=== PATIENT | male | born 1955 | race Caucasian/White ===

== ENCOUNTER → 2019-10-15 13:32 | Outpatient (BNVA) | payer MEDICARE, SELFPAY | PROVIDERS: Family Provider Family Medicine; PCP Family Medicine; Visit Provider Anesthesiology | DX: G89.4 Chronic pain syndrome (principal); M54.5 Low back pain; M25.561 Pain in right knee; M25.562 Pain in left knee; M25.512 Pain in left shoulder; Z79.891 Long term (current) use of opiate analgesic | CPT/HCPCS: 99214 ==

== ENCOUNTER 2019-10-27 12:20 | Emergency (ER) | payer MEDICARE, SELFPAY ==
[2019-10-27 12:28] VITALS: BP 125/62; PULSE 59; RESP 16; TEMP 37; O2SAT 93; BMI 37.7
[2019-10-27 12:30] VITALS: BP 125/62; PULSE 66; RESP 16; O2SAT 93
--- NOTE | 2019-10-27 12:30 | ED_ITS ---
Entered by Tricia Galeas, acting as scribe for Donato Chance MD Oct 27, 2019 12:20 HPI - Chest Pain General: Chief Complaint: Chest Pain Stated Complaint: Chest Pain Time Seen by Provider: 10/27/19 12:30 Source: patient Mode of arrival: EMS Limitations: no limitations History of Present Illness: HPI narrative: 64 yo Male presents to ED with complaint of chest pain. Pt states that he was just sitting there this morning and he had severe chest pains. Pt states that his hands were sweating and he had some difficulty breathing. Pt states that his pains went away and the pain came back again about 6 minutes later. Pt states that he is not having any chest pain at this moment. Pt states that he has had episodes like this prior and had a stress test in May of 2019 that was negative. Pt states that he chewed an aspirin before EMS arrived. complaint: chest pain Onset (ago): hour(s) (11:30 this morning) Timing of current episode: episodic and now resolved Prior episodes: Yes Onset: during rest Pain location: substernal Pain radiation: none Pain scale (0-10): 3 Relieving factors: medication-other (aspirin) Exacerbating factors: nothing Associated symptoms: Reports diaphoresis and dyspnea; Deny abdominal pain, nausea or vomiting Treatment prior to arrival: aspirin Review of Systems Const: Reports: diaphoresis Eyes: Denies: blurry vision or eye discomfort ENMT: Denies: throat pain or dental pain Card: Reports: chest pain, shortness of breath on exertion and shortness of breath when lying down Resp: Reports: shortness of breath GI: Denies: abdominal pain, nausea, vomiting or diarrhea : Denies: painful urination Musc: Denies: neck pain or back pain Skin/Breast: Denies: rash Neuro: Denies: headache Psych: Denies: depression Leif/Lymph: Denies: easy bruising All/Imm: Denies: hives PFSH ED PFSH: Statuses (acute, chronic, etc) shown below reflect problem list status as previously entered and may not be historically accurate Medical History Bilateral knee pain (Chronic) Chronic pain syndrome (Chronic) Opioid contract exists (Chronic) Pain in left shoulder (Chronic) Surgical History H/O ankle fusion (Acute) H/O arthroscopic knee surgery (Acute) H/O wrist surgery (Acute) History of appendectomy (Acute) History of shoulder surgery (Acute) S/P ureteral stent placement (Acute) Social History Smoking and tobacco status: former smoker Alcohol intake: never Physical Exam Const: COMMON NORMALS: no apparent distress, oriented x3 and healthy appearing HENMT: COMMON NORMALS: normocephalic and head/scalp atraumatic HEAD & SCALP: normocephalic and atraumatic Eye: COMMON NORMALS: PERRL and EOMs intact bilaterally PUPIL: Yes PERRL Neck/C-Spine: COMMON NORMALS: full ROM and supple Chest: COMMONS NORMALS: inspection of chest normal and palpation of chest normal Resp: COMMON NORMALS: normal respiratory effort, no retractions, no use of accessory muscles and clear to auscultation bilaterally AUSCULTATION: clear to auscultation bilaterally Cardio: COMMON NORMALS: regular rate, regular rhythm and no murmurs RATE: regular rate RHYTHM: regular rhythm GI: COMMON NORMALS: normal to inspection, nondistended, normoactive bowel sounds, soft to palpation, non-tender and no masses PALPATION: Yes soft Extremity: COMMON NORMALS: normal to inspection and full ROM Neuro: COMMON NORMALS: oriented x3, moves all extremities and no focal motor deficits Psych: COMMON NORMALS: mental status grossly normal, thought process normal and cooperative THOUGHT PROCESS: normal thought process Skin: COMMON NORMALS: no rashes or lesions noted and no wounds GENERAL SKIN EXAM: no rashes or lesions noted Course Vital Signs: Vital signs: Vital Signs Temperature 98.6 F 10/27/19 12:28 Pulse Rate 59 L 10/27/19 15:25 Respiratory Rate 20 H 10/27/19 15:25 Blood Pressure 138/69 10/27/19 15:25 Pulse Oximetry 91 10/27/19 15:25 MDM - Chest Pain MDM Narrative: Medical decision making narrative: Patient presents here with chest pain is atypical in nature. Initial and repeat troponins are negative with no delta change. EKG is negative as well. Patient had a stress test within the last year that was negative as well. Patient has had no pain here and I feel he is stable for discharge. He has no signs of pulmonary embolism. He is to follow-up with his interior design coordinator in 3 to 7 days and if his pain returns I informed he needs return to the ER. He understands and agrees to this plan. Lab Data: Labs: Lab Results 10/27/19 10/27/19 10/27/19 Range/Units 12:00 12:00 12:00 WBC 7.4 (4.0-10.0) 10^3/ uL RBC 5.60 H (4.1-5.3) 10^6/u L Hgb 16.9 H (11.7-16.6) g/dL Hct 52.3 H (42.0-52.0) % MCV 93.4 (80-94) fL MCH 30.2 (28.0-34.0) pg MCHC 32.3 (30.0-36.0) g/dL RDW 14.6 (12.1-15.1) % Plt Count 203 (130-400) 10^3/c mm MPV 10.2 (7.4-10.4) fL Neut % (Auto) 59.8 % Lymph % (Auto) 24.6 % [place] % (Auto) 9.6 % Eos % (Auto) 4.6 % Baso % (Auto) 0.7 % Neut # (Auto) 4.4 (1.8-7.7) 10^3/u L Lymph # (Auto) 1.8 (0.8-4.8) 10^3/u L [place] # (Auto) 0.7 (0.2-0.9) 10^3/u L Eos # (Auto) 0.3 (0.0-0.8) 10^3/u L Baso # (Auto) 0.1 (0.0-0.1) 10^3/u L Nucleated RBC % (a uto) 0 % Nucleated RBCs # 0.0 /100WBC Sodium 137 (136-145) mmol/L Potassium 4.0 (3.5-5.1) mmol/L Chloride 96 L (98-107) mmol/L Carbon Dioxide 30 H (22-29) mmol/L Anion Gap 15.0 (5-19) BUN 11 (8-23) mg/dL Creatinine 0.8 (0.7-1.2) mg/dL GFR Calculation 97.3 (90-130) mL/min Glucose 133 H (74-106) mg/dL Calcium 9.7 (8.5-10.5) mg/dL Total Bilirubin 0.3 (0.15-1.2) mg/dL AST 21 (0-40) U/L ALT 23 (0-41) U/L Alkaline Phosphata se 62 (40-130) IU/L Troponin T Baselin e 21 H (0-15) ng/mL Troponin T 120 Min [place] (0-15) ng/mL Delta Troponin T (0-10) ABS# Total Protein 7.3 (6.6-8.7) g/dL Albumin 3.9 (3.5-5.2) g/dL Globulin 3.4 (1.3-4.6) g/dL 10/27/19 Range/Units 14:01 WBC (4.0-10.0) 10^3/ uL RBC (4.1-5.3) 10^6/u L Hgb (11.7-16.6) g/dL Hct (42.0-52.0) % MCV (80-94) fL MCH (28.0-34.0) pg MCHC (30.0-36.0) g/dL RDW (12.1-15.1) % Plt Count (130-400) 10^3/c mm MPV (7.4-10.4) fL Neut % (Auto) % Lymph % (Auto) % [place] % (Auto) % Eos % (Auto) % Baso % (Auto) % Neut # (Auto) (1.8-7.7) 10^3/u L Lymph # (Auto) (0.8-4.8) 10^3/u L [place] # (Auto) (0.2-0.9) 10^3/u L Eos # (Auto) (0.0-0.8) 10^3/u L Baso # (Auto) (0.0-0.1) 10^3/u L Nucleated RBC % (a uto) % Nucleated RBCs # /100WBC Sodium (136-145) mmol/L Potassium (3.5-5.1) mmol/L Chloride (98-107) mmol/L Carbon Dioxide (22-29) mmol/L Anion Gap (5-19) BUN (8-23) mg/dL Creatinine (0.7-1.2) mg/dL GFR Calculation (90-130) mL/min Glucose (74-106) mg/dL Calcium (8.5-10.5) mg/dL Total Bilirubin (0.15-1.2) mg/dL AST (0-40) U/L ALT (0-41) U/L Alkaline Phosphata se (40-130) IU/L Troponin T Baselin e (0-15) ng/mL Troponin T 120 Min [place] 17.85 H (0-15) ng/mL Delta Troponin T -3.15 L (0-10) ABS# Total Protein (6.6-8.7) g/dL Albumin (3.5-5.2) g/dL Globulin (1.3-4.6) g/dL Imaging Data^: CXR: Attestation: I personally reviewed and interpreted this imaging study as follows: My impression: no acute abnormality EKG Data^: EKG 1: Attestation: I personally reviewed and interpreted this EKG as follows: EKG interpretation date: 10/27/19 EKG interpretation time: 12:36 Interpretation: nsr hr [address] or t wave abnormalities qrs 122 qtc 402 EKG 2: Attestation: I personally reviewed and interpreted this EKG as follows: EKG interpretation date: 10/27/19 EKG interpretation time: 14:35 Interpretation: sinus dewayne hr [address] or t wave abnormalities qrs 116 qtc 389 Discharge Plan Discharge Patient Disposition: Home, Self-Care Clinical Impression: Chest pain Qualifiers: Chest pain type: other chest pain Qualified Code(s): R07.89 - Other chest pain Condition: Stable Prescriptions: No Action testosterone cypionate 200 mg/mL kit See Rx Instructions .ROUTE .COMPLEX RF: 0 trazodone 300 mg tablet 300 mg PO BEDTIME RF: 0 lovastatin 40 mg tablet 40 mg PO DAILY RF: 0 allopurinol 300 mg tablet 300 mg PO DAILY RF: 0 folic acid 1 mg tablet 1 mg PO DAILY RF: 0 bisoprolol-hydrochlorothiazide 10-6.25 mg tablet 1 tab PO DAILY RF: 0 multivitamin Tablet 1 tab PO DAILY RF: 0 gabapentin 600 mg tablet 600 mg PO BID PRN (Reason: unknown) RF: 0 hydrocodone-acetaminophen 10-325 mg tablet 1 tab PO QID PRN (Reason: pain) 30 Days Qty: 120 RF: 0 methadone 10 mg tablet 20 mg PO TID 30 Days Qty: 180 RF: 0 vitamin E 1,000 unit Capsule 1,000 unit PO DAILY RF: 0 senna 8.6 mg Tablet 8.6 mg PO DAILY RF: 0 Vitamin C 1,000 mg Tablet 1,000 mg PO DAILY RF: 0 aspirin 325 mg Tablet 325 mg PO DAILY RF: 0 Colace 100 mg Capsule 100 mg PO DAILY RF: 0 Ventolin HFA 90 mcg/actuation Hfa Aerosol Inhaler 2 puff INHALATION Q4H PRN (Reason: Shortness Of Breath) RF: 0 Claritin 10 mg Tablet 10 mg PO DAILY RF: 0 Discharge Orders: Discharge Order (Routine); Ordered 10/27/19 Ordered By: Donato Chance Referrals: Raiza Orourke MD [Physician] - 4-7 days Shant Ballesteros MD [Primary Care Provider] - 4-7 days Discharge Diet: Advance as tolerated Discharge Activity: Resume usual activity Patient Instructions: Chest Pain (ED) Discharge Date/Time: 10/27/19 15:23 Coding Level of Care Code ED Mechanical Inspector for Chg Fwd Exam Problem Focused The documentation recorded by the Adal willams Carmen, accurately reflects the service I personally performed and the decisions made by Robson steiner Korby, MD Oct 27, 2019 12:20
--- NOTE | 2019-10-27 12:31 | XR_ITS ---
WS: [id number] Portable AP upright chest, 10/27/2019 Clinical Data: cp Comparison: Portable chest, 06/19/2019 Findings: No nodules, masses or effusions are seen. The heart is normal. The pulmonary vascularity is not increased. No pneumonia or pneumothorax is seen. The aortic arch and descending aorta are tortuo us. The patient has bilateral Marr rods extending from T3 into the lumbar spine to aid in reduc ing a levoscoliosis. 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 XR/XR chest 1V portable [id number] Impression: Negative for acute cardiopulmonary disease.
--- NOTE | 2019-10-27 12:31 | ECG_ITS ---
Measurements Intervals [place] Rate: 64 P: 21 NE: 203 QRS: 0 QRSD: 122 T: 46 QT: 392 QTc: 406 SINUS RHYTHM POSSIBLE LATERAL MYOCARDIAL INFARCTION , OF INDETERMINATE AGE [30 ms Q WAVE IN I/a I/aVL/V5/V6] INTERPRETATION BASED ON A DEFAULT AGE OF 40 YEARS Compared to ECG 06/19/2019 23:15:21 Myocardial infarct finding now present Sinus bradycardia no longer present Intraventricular conduction delay no longer present Electronically Signed On 10-27-2019 16:19:09 WAREHOUSE FREIGHT HANDLER by Ignacio Chaudhari M.D. [email or web address]
[2019-10-27 12:56] LABS: Basophils # 0.1 10^3/uL (0.0-0.1); Basophils % 0.7 %; Eosinophils # 0.3 10^3/uL (0.0-0.8); Eosinophils % 4.6 %; Hematocrit 52.3 % (42.0-52.0); Hemoglobin 16.9 g/dL (11.7-16.6); Lymphocytes # 1.8 10^3/uL (0.8-4.8); Lymphocytes % 24.6 %; Mean Corpuscular HGB Conc 32.3 g/dL (30.0-36.0); Mean Corpuscular Hemoglobin 30.2 pg (28.0-34.0); Mean Corpuscular Volume 93.4 fL (80-94); Mean Platelet Volume 10.2 fL (7.4-10.4); Monocytes # 0.7 10^3/uL (0.2-0.9); Monocytes % 9.6 %; Neutrophils # 4.4 10^3/uL (1.8-7.7); Neutrophils % 59.8 %; Nucleated Red Blood Cells % 0 %; Platelet Count 203 10^3/cmm (130-400); Red Cell Distribution Width 14.6 % (12.1-15.1); White Blood Count 7.4 10^3/uL (4.0-10.0)
[2019-10-27 13:05] LABS: Alanine Aminotransferase 23 U/L (0-41); Albumin Level 3.9 g/dL (3.5-5.2); Alkaline Phosphatase 62 IU/L (40-130); Aspartate Amino Transferase 21 U/L (0-40); Blood Urea Nitrogen 11 mg/dL (8-23); Calcium 9.7 mg/dL (8.5-10.5); Carbon Dioxide 30 mmol/L (22-29); Chloride 96 mmol/L (98-107); Globulin 3.4 g/dL (1.3-4.6); Glomerular Filtration Rate 97.3 mL/min (90-130); Glucose 133 mg/dL (74-106); Sodium 137 mmol/L (136-145); Total Bilirubin 0.3 mg/dL (0.15-1.2); Total Protein 7.3 g/dL (6.6-8.7)
[2019-10-27 13:24] LABS: Troponin(5th) Baseline 21 ng/mL (0-15)
[2019-10-27 13:37] VITALS: BP 140/64; PULSE 56; RESP 18; O2SAT 93
[2019-10-27 14:30] LABS: Troponin 5 2HR 17.85 ng/mL (0-15)
--- NOTE | 2019-10-27 14:31 | ECG_ITS ---
Measurements Intervals [place] Rate: 59 P: 17 NE: 204 QRS: -7 QRSD: 116 T: 7 QT: 389 QTc: 388 SINUS BRADYCARDIA WITH SINUS ARRHYTHMIA MODERATE INTRAVENTRICULAR CONDUCTION DELAY [110+ ms QRS DURATION] Compared to ECG 06/19/2019 23:15:21 No significant changes Electronically Signed On 10-27-2019 16:23:16 DISTRIBUTION ACCOUNTING CLERK by Ignacio Chaudhari M.D. [email or web address]
[2019-10-27 14:41] LABS: Troponin 5 2HR Delta -3.15 ABS# (0-10)
[2019-10-27 15:25] VITALS: BP 138/69; PULSE 59; RESP 20; O2SAT 91
--- NOTE | 2019-10-29 10:16 | DCPLANNER ---
technical operations manager had message to schedule a follow up appointment for patient with [facility]. technical operations manager called [facility], spoke with Alondra, gave clinic patients information. Clinic will call patient with appointment information, machine adjuster leader case trim will call for appointment information.
--- NOTE | 2019-10-30 15:22 | DCPLANNER ---
manager clinical research
--- NOTE | 2019-10-30 15:22 | DCPLANNER ---
manager internal was told that an appointment had been scheduled for patient for 10.28.19 at [facility], patient did not attend that appointment.
== END 2019-10-27 15:23 | disposition home or self-care (01) ==
PROVIDERS: Emergency Provider Emergency Medicine; Family Provider Family Medicine; PCP Family Medicine
DX: R07.89 Other chest pain (principal); Z79.82 Long term (current) use of aspirin; Z87.891 Personal history of nicotine dependence
CPT/HCPCS: 36415; 71045; 80053; 84484; 85025; 93005; 99283; 99284

== ENCOUNTER 2019-11-11 12:13 | Outpatient (CLI) | payer MEDICARE, SELFPAY ==
--- NOTE | 2019-11-11 12:15 | XRR_ITS ---
PROCEDURE INFORMATION: Exam: XR Abdomen, 1 View Exam date and time: 11/11/2019 12:35 PM Age: 64 years old Clinical indication: Condition or disease; Other: Ureteral calculus; Prior surgery; Surgery date: 6+ months; Surgery type: Appy TECHNIQUE: Imaging protocol: XR of the abdomen. Views: Frontal supine view of the abdomen. 1 View. COMPARISON: CR XR KUB [id number] 09/08/2015 8:14 AM FINDINGS: Gastrointestinal tract: No dilated gas-filled loops of bowel. Organs: There is right nephrolithiasis. The previously demonstrated right double-J stent has been removed in the interval. The left kidney is obscured by intestinal gas. No ureteral calculus is identified. Bones/joints: Posterior brooklynn fusion at L4-L5 and across the thoracolumbar junction. There is a curvature of the upper lumbar spine convex to the right. Multilevel degenerative changes in the lumbar spine. XR/XR KUB [id number] IMPRESSION: Right nephrolithiasis.
== END 2019-11-11 12:14 | disposition home or self-care (01) ==
LOC: RAD 12:18
PROVIDERS: Family Provider Family Medicine; PCP Family Medicine; Visit Provider Urology
DX: N20.1 Calculus of ureter (principal); N20.0 Calculus of kidney
CPT/HCPCS: 74018; 81001

== ENCOUNTER → 2019-12-09 14:03 | Outpatient (BNVA) | payer MEDICARE, SELFPAY | PROVIDERS: Family Provider Family Medicine; PCP Family Medicine; Visit Provider Anesthesiology | DX: G89.4 Chronic pain syndrome (principal); M25.512 Pain in left shoulder; M25.561 Pain in right knee; M25.562 Pain in left knee; Z79.891 Long term (current) use of opiate analgesic | CPT/HCPCS: 99214 ==

== ENCOUNTER 2020-01-30 17:18 | Emergency (ER) | payer MEDICARE, SELFPAY ==
[2020-01-30 17:29] VITALS: BP 144/76; PULSE 71; RESP 20; TEMP 37.1; O2SAT 91; BMI 38.9
[2020-01-30 17:43] VITALS: RESP 16
--- NOTE | 2020-01-30 17:46 | W.ED.GENADLT ---
Documented by User: Jatinder Yeboah DO 02/01/20 06:21 HPI - General Adult General: Chief complaint: General Medical Stated complaint: rectal pain Time Seen by Provider: 01/30/20 17:26 History of Present Illness: HPI narrative: 64-year-old male comes in complaining of rectal pain that began suddenly this afternoon. He had noticed a lump in the rectal area sometime ago and had evaluated Dr. Cage during her prostate check Dr. Cage evidently told him it really was not much of anything. He states its immediately adjacent to the rectum it has not been draining anything. He is not noticed any hematochezia or melena he is not had any previous pilonidal cyst or perirectal abscess. States he gets severe pain with sitting or if he contracts the rectum. Denies any dysuria urgency or frequency no fever cough sweats chills abdominal pain or respiratory symptoms Onset (ago): hour(s) Severity: severe Quality: burning Pain Consistency: intermittent Relieving factors: rest Exacerbating factors: other (Direct pressure) Associated symptoms: Deny chest pain, dyspnea, malaise, nausea, rash or vomiting Review of Systems Const: Denies: fever, chills, body aches, change in appetite, fatigue or malaise ENMT: Denies: throat pain, ear pain, nasal discharge or nasal congestion Card: Denies: chest pain, edema, shortness of breath on exertion or shortness of breath when lying down Resp: Denies: shortness of breath, productive cough or non-productive cough GI: Denies: abdominal pain, nausea, vomiting, vomiting blood, coffee grounds in vomit, diarrhea, constipation, bloating, blood in stool or black tarry stool : Denies: flank pain, painful urination, urinary frequency or urinary urgency Skin/Breast: Denies: rash or itching PFSH ED PFSH: Medical History (Updated 01/30/20 @ 20:33 by Jamie Hawthorne DO) Bilateral knee pain Chronic pain syndrome Encounter for long-term opiate analgesic use Erectile dysfunction Opioid contract exists Pain in left shoulder Right renal stone Testosterone deficiency Surgical History (Updated 12/09/19 @ 16:12 by Tim Maldonado MD) H/O ankle fusion H/O arthroscopic knee surgery H/O wrist surgery History of appendectomy History of back surgery History of shoulder surgery S/P ureteral stent placement Social History Smoking and tobacco status: never smoked Alcohol intake: never Adopted: No Caregiver/support person: No Lives independently: No Household members: spouse Marital status: Current occupational status: retired History of recent travel: No Physical Exam Const: COMMON NORMALS: no apparent distress GENERAL APPEARANCE: cooperative and comfortable ORIENTATION/CONSCIOUSNESS: Yes awake, Yes oriented to person, Yes oriented to place and Yes oriented to time HENMT: COMMON NORMALS: normocephalic, head/scalp atraumatic, hearing grossly normal bilaterally, external ears normal, EAC's normal, TM's normal bilaterally, nasal mucous membranes and turbinates normal, moist oral mucous membranes and oropharynx normal HEAD & SCALP: normocephalic and atraumatic NOSE: nasal mucous membranes and turbinates normal EXTERNAL EAR: Yes external ears normal EXTERNAL AUDITORY CANAL: EAC's normal TYMPANIC MEMBRANE: TM's normal bilaterally Eye: COMMON NORMALS: PERRL, EOMs intact bilaterally, conjunctivae normal and no scleral icterus CONJUNCTIVA: Yes conjunctivae normal PUPIL: Yes PERRL Neck/C-Spine: COMMON NORMALS: full ROM, no lymphadenopathy, supple and no JVD Lymph: LYMPHATIC: no lymphadenopathy noted and no lymphedema noted Resp: COMMON NORMALS: normal respiratory effort, no retractions, no use of accessory muscles and clear to auscultation bilaterally AUSCULTATION: clear to auscultation bilaterally Cardio: COMMON NORMALS: no JVD, regular rate, regular rhythm and no murmurs RATE: regular rate RHYTHM: regular rhythm GI: COMMON NORMALS: soft to palpation and no hepatosplenomegaly INSPECTION: No laceration AUSCULTATION: Yes normoactive bowel sounds PALPATION: Yes soft, No tender, No guarding and Yes no hepatosplenomegaly RECTAL EXAM: Yes hemorrhoids, No fistula, No laceration and No anal fissure(s) OTHER: The 9 o'clock position adjacent to the rectum outside the rectal sphincter there is a exquisitely tender lump. It is mildly discolored there is some slight redness adjacent to it. Extremity: COMMON NORMALS: normal to inspection, normal capillary refill, no clubbing, cyanosis or edema, no calf tenderness and no pedal edema Neuro: SENSORIUM/ORIENTATION: Yes oriented to person, Yes oriented to place and Yes oriented to time Skin: COMMON NORMALS: no rashes or lesions noted GENERAL SKIN EXAM: no rashes or lesions noted Course Vital Signs: Vital signs: Vital Signs Temperature 98.8 F 01/30/20 17:29 Pulse Rate 88 01/30/20 21:46 Respiratory Rate 16 01/30/20 21:46 Blood Pressure 124/78 01/30/20 21:46 Pulse Oximetry 94 01/30/20 21:46 MDM - General Adult MDM Narrative: Medical decision making narrative: Appears to be a hemorrhoid however I am concerned it might be a perirectal abscess. We will get a white count to a CT on him to ensure care turned over to Dr. Hawthorne at change of shift Lab Data: Labs: Lab Results 01/30/20 01/30/20 Range/Units 18:13 18:13 WBC 8.2 (4.0-10.0) 10^3/ uL RBC 4.98 (4.1-5.3) 10^6/u L Hgb 15.9 (11.7-16.6) g/dL Hct 48.6 (42.0-52.0) % MCV 97.6 H (80-94) fL MCH 31.9 (28.0-34.0) pg MCHC 32.7 (30.0-36.0) g/dL RDW 13.4 (12.1-15.1) % Plt Count 163 (130-400) 10^3/c mm MPV 9.3 (7.4-10.4) fL Neut % (Auto) 59.4 % Lymph % (Auto) 25.0 % [place] % (Auto) 10.0 % Eos % (Auto) 4.5 % Baso % (Auto) 0.5 % Neut # (Auto) 4.9 (1.8-7.7) 10^3/u L Lymph # (Auto) 2.1 (0.8-4.8) 10^3/u L [place] # (Auto) 0.8 (0.2-0.9) 10^3/u L Eos # (Auto) 0.4 (0.0-0.8) 10^3/u L Baso # (Auto) 0.0 (0.0-0.1) 10^3/u L Nucleated RBC % (a uto) 0 % Nucleated RBCs # 0.0 /100WBC Sodium 138 (136-145) mmol/L Potassium 4.1 (3.5-5.1) mmol/L Chloride 99 (98-107) mmol/L Carbon Dioxide 30 H (22-29) mmol/L Anion Gap 13.1 (5-19) BUN 13 (8-23) mg/dL Creatinine 0.9 (0.7-1.2) mg/dL GFR Calculation 85.0 L (90-130) mL/min Glucose 148 H (65-115) mg/dL Calculated Osmolal ity 285 (285-295) mOsm/k g Calcium 9.4 (8.5-10.5) mg/dL Total Bilirubin 0.3 (0.15-1.2) mg/dL AST 20 (0-40) U/L ALT 21 (0-41) U/L Alkaline Phosphata se 56 (40-130) IU/L Total Protein 6.7 (6.6-8.7) g/dL Albumin 4.1 (3.5-5.2) g/dL Globulin 2.6 (1.3-4.6) g/dL Discharge Plan Discharge Patient Disposition: Home, Self-Care Clinical Impression: Hemorrhoid thrombosis Condition: Stable Prescriptions: No Action trazodone 300 mg tablet 300 mg PO BEDTIME RF: 0 lovastatin 40 mg tablet 40 mg PO DAILY RF: 0 allopurinol 300 mg tablet 300 mg PO DAILY RF: 0 folic acid 1 mg tablet 1 mg PO DAILY RF: 0 bisoprolol-hydrochlorothiazide 10-6.25 mg tablet 1 tab PO DAILY RF: 0 multivitamin Tablet 1 tab PO DAILY RF: 0 hydrocodone-acetaminophen 10-325 mg tablet 1 tab PO QID PRN (Reason: pain) 30 Days Qty: 120 RF: 0 hydrocodone-acetaminophen 10-325 mg tablet 1 tab PO QID 30 Days Qty: 120 RF: 0 methadone 10 mg tablet 20 mg PO TID 30 Days Qty: 180 RF: 0 methadone 10 mg tablet 20 mg PO Q8H 30 Days Qty: 180 RF: 0 testosterone cypionate 200 mg/mL oil 200 mg IM .EVERY 10 DAYS Qty: 10 RF: 5 vitamin E 1,000 unit Capsule 1,000 unit PO DAILY RF: 0 senna 8.6 mg Tablet 8.6 mg PO DAILY RF: 0 Vitamin C 1,000 mg Tablet 1,000 mg PO DAILY RF: 0 aspirin 325 mg Tablet 325 mg PO DAILY RF: 0 Colace 100 mg Capsule 100 mg PO DAILY RF: 0 Ventolin HFA 90 mcg/actuation Hfa Aerosol Inhaler 2 puff INHALATION Q4H PRN (Reason: Shortness Of Breath) RF: 0 Claritin 10 mg Tablet 10 mg PO DAILY RF: 0 Discharge Orders: Discharge Order (Routine); Ordered 01/30/20 Ordered By: Jamie Hawthorne Referrals: Shant Ballesteros MD [Primary Care Provider] - 4-7 days Discharge Diet: Usual diet Discharge Activity: Increase activity as tolerated Patient Instructions: Hemorrhoids (ED) Activity Restrictions/Additional Instructions: Return for worsening pain, fever, uncontrolled bleeding, other concerning symptoms. You will notice a small amount of bleeding over the next 12 hours or so. Keep packed with some gauze. Discharge Date/Time: 01/30/20 21:47 Coding Level of Care Code ED Curtain Feller Blindstitch for Chg Fwd Documented by User: Jamie Hawthorne DO 01/30/20 21:03 HPI - General Adult General: Chief complaint: General Medical Stated complaint: rectal pain Time Seen by Provider: 01/30/20 17:26 PFS ED PFSH: Medical History (Updated 01/30/20 @ 20:33 by Jamie Hawthorne DO) Bilateral knee pain Chronic pain syndrome Encounter for long-term opiate analgesic use Erectile dysfunction Opioid contract exists Pain in left shoulder Right renal stone Testosterone deficiency Surgical History (Updated 12/09/19 @ 16:12 by Tim Maldonado MD) H/O ankle fusion H/O arthroscopic knee surgery H/O wrist surgery History of appendectomy History of back surgery History of shoulder surgery S/P ureteral stent placement Social History Smoking and tobacco status: never smoked Alcohol intake: never Adopted: No Caregiver/support person: No Lives independently: No Household members: spouse Marital status: Current occupational status: retired History of recent travel: No Procedures Abscess I/D Site: yumiko-rectal and other (This was an incision and evacuation of a thrombosed hemorrhoid) Sedation/analgesia: fentanyl Local Anesthetic: lidocaine 1% Amount of anesthesia used (mL): 5 Technique: incised with #11 blade Amount of fluid expressed (mL): 5 Irrigation: No Packing used?: none Course Vital Signs: Vital signs: Vital Signs Temperature 98.8 F 01/30/20 17:29 Pulse Rate 88 01/30/20 21:46 Respiratory Rate 16 01/30/20 21:46 Blood Pressure 124/78 01/30/20 21:46 Pulse Oximetry 94 01/30/20 21:46 MDM - General Adult MDM Narrative: Medical decision making narrative: 64-year-old gentleman checked out to me by Dr. Yeboah. He has had rectal pain for some time now. It worsened today. No fever, no leukocytosis. CT was negative for perirectal abscess. On inspection by me, it appears to be a thrombosed hemorrhoid. It was incised and evacuated. Patient had immediate reduction in pain on local anesthesia. Bleeding was minimal. He should do well. Lab Data: Labs: Lab Results 01/30/20 01/30/20 Range/Units 18:13 18:13 WBC 8.2 (4.0-10.0) 10^3/ uL RBC 4.98 (4.1-5.3) 10^6/u L Hgb 15.9 (11.7-16.6) g/dL Hct 48.6 (42.0-52.0) % MCV 97.6 H (80-94) fL MCH 31.9 (28.0-34.0) pg MCHC 32.7 (30.0-36.0) g/dL RDW 13.4 (12.1-15.1) % Plt Count 163 (130-400) 10^3/c mm MPV 9.3 (7.4-10.4) fL Neut % (Auto) 59.4 % Lymph % (Auto) 25.0 % [place] % (Auto) 10.0 % Eos % (Auto) 4.5 % Baso % (Auto) 0.5 % Neut # (Auto) 4.9 (1.8-7.7) 10^3/u L Lymph # (Auto) 2.1 (0.8-4.8) 10^3/u L [place] # (Auto) 0.8 (0.2-0.9) 10^3/u L Eos # (Auto) 0.4 (0.0-0.8) 10^3/u L Baso # (Auto) 0.0 (0.0-0.1) 10^3/u L Nucleated RBC % (a uto) 0 % Nucleated RBCs # 0.0 /100WBC Sodium 138 (136-145) mmol/L Potassium 4.1 (3.5-5.1) mmol/L Chloride 99 (98-107) mmol/L Carbon Dioxide 30 H (22-29) mmol/L Anion Gap 13.1 (5-19) BUN 13 (8-23) mg/dL Creatinine 0.9 (0.7-1.2) mg/dL GFR Calculation 85.0 L (90-130) mL/min Glucose 148 H (65-115) mg/dL Calculated Osmolal ity 285 (285-295) mOsm/k g Calcium 9.4 (8.5-10.5) mg/dL Total Bilirubin 0.3 (0.15-1.2) mg/dL AST 20 (0-40) U/L ALT 21 (0-41) U/L Alkaline Phosphata se 56 (40-130) IU/L Total Protein 6.7 (6.6-8.7) g/dL Albumin 4.1 (3.5-5.2) g/dL Globulin 2.6 (1.3-4.6) g/dL Discharge Plan Discharge Patient Disposition: Home, Self-Care Clinical Impression: Hemorrhoid thrombosis Condition: Stable Prescriptions: No Action trazodone 300 mg tablet 300 mg PO BEDTIME RF: 0 lovastatin 40 mg tablet 40 mg PO DAILY RF: 0 allopurinol 300 mg tablet 300 mg PO DAILY RF: 0 folic acid 1 mg tablet 1 mg PO DAILY RF: 0 bisoprolol-hydrochlorothiazide 10-6.25 mg tablet 1 tab PO DAILY RF: 0 multivitamin Tablet 1 tab PO DAILY RF: 0 hydrocodone-acetaminophen 10-325 mg tablet 1 tab PO QID PRN (Reason: pain) 30 Days Qty: 120 RF: 0 hydrocodone-acetaminophen 10-325 mg tablet 1 tab PO QID 30 Days Qty: 120 RF: 0 methadone 10 mg tablet 20 mg PO TID 30 Days Qty: 180 RF: 0 methadone 10 mg tablet 20 mg PO Q8H 30 Days Qty: 180 RF: 0 testosterone cypionate 200 mg/mL oil 200 mg IM .EVERY 10 DAYS Qty: 10 RF: 5 vitamin E 1,000 unit Capsule 1,000 unit PO DAILY RF: 0 senna 8.6 mg Tablet 8.6 mg PO DAILY RF: 0 Vitamin C 1,000 mg Tablet 1,000 mg PO DAILY RF: 0 aspirin 325 mg Tablet 325 mg PO DAILY RF: 0 Colace 100 mg Capsule 100 mg PO DAILY RF: 0 Ventolin HFA 90 mcg/actuation Hfa Aerosol Inhaler 2 puff INHALATION Q4H PRN (Reason: Shortness Of Breath) RF: 0 Claritin 10 mg Tablet 10 mg PO DAILY RF: 0 Discharge Orders: Discharge Order (Routine); Ordered 01/30/20 Ordered By: Jamie Hawthorne Referrals: Shant Ballesteros MD [Primary Care Provider] - 4-7 days Discharge Diet: Usual diet Discharge Activity: Increase activity as tolerated Patient Instructions: Hemorrhoids (ED) Activity Restrictions/Additional Instructions: Return for worsening pain, fever, uncontrolled bleeding, other concerning symptoms. You will notice a small amount of bleeding over the next 12 hours or so. Keep packed with some gauze. Discharge Date/Time: 01/30/20 21:47 Coding Level of Care Code ED Curtain Feller Blindstitch for Scarlett San
--- NOTE | 2020-01-30 17:58 | CTR_ITS ---
PROCEDURE INFORMATION: Exam: CT Pelvis With Contrast Exam date and time: 01/30/2020 6:51 PM Age: 64 years old Clinical indication: Patient HX: C/O rectal pain; Additional info: Perirectal abscess TECHNIQUE: Imaging protocol: Computed tomography images of the pelvis with intravenous contrast. Radiation optimization: All CT scans at this facility use at least one of these dose optimization techniques: automated exposure control; mA and/or kV adjustment per patient size (includes targeted exams where dose is matched to clinical indication); or iterative reconstruction. Contrast material: OMNI 300; Contrast volume: 95 ml; Contrast route: 18G; COMPARISON: No relevant prior studies available. RADIATION DOSE METRICS: Total DLP: 1515.31 mGy-cm FINDINGS: Stomach and bowel: Visualized small bowel and colon are unremarkable. Appendix: No evidence of appendicitis. Intraperitoneal space: No free fluid the pelvis. Vasculature: Mild arterial sclerosis. Lymph nodes: Unremarkable. No enlarged lymph nodes. Bladder: Unremarkable. No filling defect or intraluminal mass. Reproductive: Prostate hypertrophy. Bones/joints: Unremarkable for age. No acute fracture. No dislocation. Lumbosacral inter pedicle screws Soft tissues: Obesity. Left inguinal hernia containing fat only. No visible perirectal or perineal abscess. CT/CT pelvis w con* [id number] IMPRESSION: No acute findings. Radiation Dose CTDIVOL = (mGy): DLP = 1515.31 (mGy-cm)
[2020-01-30 18:21] LABS: Basophils % 0.5 %; Eosinophils # 0.4 10^3/uL (0.0-0.8); Eosinophils % 4.5 %; Hematocrit 48.6 % (42.0-52.0); Hemoglobin 15.9 g/dL (11.7-16.6); Lymphocytes # 2.1 10^3/uL (0.8-4.8); Mean Corpuscular HGB Conc 32.7 g/dL (30.0-36.0); Mean Corpuscular Hemoglobin 31.9 pg (28.0-34.0); Mean Corpuscular Volume 97.6 fL (80-94); Mean Platelet Volume 9.3 fL (7.4-10.4); Monocytes # 0.8 10^3/uL (0.2-0.9); Neutrophils # 4.9 10^3/uL (1.8-7.7); Neutrophils % 59.4 %; Nucleated Red Blood Cells % 0 %; Platelet Count 163 10^3/cmm (130-400); Red Blood Count 4.98 10^6/uL (4.1-5.3); Red Cell Distribution Width 13.4 % (12.1-15.1); White Blood Count 8.2 10^3/uL (4.0-10.0)
[2020-01-30 18:43] LABS: Alanine Aminotransferase 21 U/L (0-41); Albumin Level 4.1 g/dL (3.5-5.2); Alkaline Phosphatase 56 IU/L (40-130); Anion Gap 13.1 (5-19); Aspartate Amino Transferase 20 U/L (0-40); Blood Urea Nitrogen 13 mg/dL (8-23); Calcium 9.4 mg/dL (8.5-10.5); Carbon Dioxide 30 mmol/L (22-29); Chloride 99 mmol/L (98-107); Globulin 2.6 g/dL (1.3-4.6); Glucose 148 mg/dL (65-115); Osmolality Calculated 285 mOsm/kg (285-295); Potassium 4.1 mmol/L (3.5-5.1); Sodium 138 mmol/L (136-145); Total Bilirubin 0.3 mg/dL (0.15-1.2); Total Protein 6.7 g/dL (6.6-8.7)
[2020-01-30] MEDS: iohexol 300 mg/mL 100 mL Btl IV (18:53)
[2020-01-30 19:44] VITALS: RESP 16; O2SAT 95
[2020-01-30] MEDS: fentaNYL 50 mcg/mL INJ 2mL 100 MCG IVP (19:44)
[2020-01-30] MEDS: lidocaine 1% INJ 20 mL 10 ML INJECTION (19:47)
[2020-01-30 20:03] VITALS: BP 116/63; PULSE 66; RESP 18; O2SAT 96
[2020-01-30 21:46] VITALS: BP 124/78; PULSE 88; RESP 16; O2SAT 94
== END 2020-01-30 21:47 | disposition home or self-care (01) ==
PROVIDERS: Family Medicine; Emergency Provider Emergency Medicine; Family Provider Family Medicine; PCP Family Medicine
DX: K64.5 Perianal venous thrombosis (principal); Z79.82 Long term (current) use of aspirin
CPT/HCPCS: 12345; 36415; 72193; 80053; 85025; 96374; 96375; 99282; 99283; J2001; J3010; Q9967

== ENCOUNTER → 2020-04-20 12:43 | Outpatient (BNVA) | payer MEDICARE, SELFPAY | PROVIDERS: Family Provider Family Medicine; PCP Family Medicine; Visit Provider Anesthesiology | DX: G89.4 Chronic pain syndrome (principal); M54.42 Lumbago with sciatica, left side; M54.41 Lumbago with sciatica, right side; M25.561 Pain in right knee; M25.562 Pain in left knee; M25.512 Pain in left shoulder; M54.9 Dorsalgia, unspecified; Z79.891 Long term (current) use of opiate analgesic | CPT/HCPCS: 99214 ==

== ENCOUNTER 2020-05-25 08:42 | Emergency (ER) | payer MEDICARE, SELFPAY ==
[2020-05-25 08:47] VITALS: BP 129/65; PULSE 60; RESP 18; TEMP 36.5; O2SAT 92; BMI 39.4
--- NOTE | 2020-05-25 08:54 | ED_ITS ---
HPI - Skin/Abscess/Foreign Bdy General: Chief complaint: Skin/Abscess/Foreign Body Stated complaint: RASH Time Seen by Provider: 05/25/20 08:48 History of Present Illness: HPI narrative: 65-year-old male reports a rash on the right hip. It began as a small area last night when he went to bed he had cleaned off with some topical antibiotic ointment and cleaned it with alcohol. This morning it had increased in size significantly and is very pruritic he is n ot noticed any vesicles it does not burn. Has not had any drainage. MD complaint: rash Onset (ago): day(s) Location: LLE (Left hip) Severity: moderate Quality: pruritic Relieving factors: none Exacerbating factors: none Context: none Associated symptoms: Reports itching; Deny arthralgias, chills, cough, fever(s), myalgias, nausea, rigidity, short of breath or vomiting Treatments prior to arrival: OTC topical medication and antibiotic (Topical) Review of Systems Const: Denies: fever(s) or chills ENMT: Denies: throat pain, ear or mastoid pain, nasal discharge or nasal congestion Card: Denies: chest pain, edema, dyspnea on exertion or orthopnea Resp: Denies: dyspnea, productive cough or non-productive cough GI: Denies: nausea or vomiting : Denies: flank pain, dysuria, urinary frequency or urinary urgency PFSH ED PFSH: Medical History Bilateral knee pain Chronic pain syndrome Encounter for long-term opiate analgesic use Erectile dysfunction Opioid contract exists Pain in left shoulder Right renal stone Testosterone deficiency Surgical History H/O ankle fusion H/O arthroscopic knee surgery H/O wrist surgery History of appendectomy History of back surgery History of shoulder surgery S/P ureteral stent placement Family History Other CAD (coronary artery disease) Cancer Hypertension Stroke Social History Smoking and tobacco status: never smoked Alcohol intake: never Adopted: No Caregiver/support person: No Lives independently: No Household members: spouse Marital status: Current occupational status: retired History of recent travel: No Physical Exam Const: COMMON NORMALS: average body habitus, patient oriented x3 and alert GENERAL APPEARANCE: cooperative, comfortable, well kempt and well developed NUTRITIONAL APPEARANCE: obese ORIENTATION/CONSCIOUSNESS: Yes awake, Yes oriented to person and Yes oriented to place HENMT: COMMON NORMALS: normocephalic and atraumatic HEAD & SCALP: normocephalic and atraumatic Resp: COMMON NORMALS: normal respiratory effort, No retractions, No use of accessory muscles and clear to auscultation bilaterally AUSCULTATION: clear to auscultation bilaterally Cardio: COMMON NORMALS: regular rate and regular rhythm RATE: regular rate RHYTHM: regular rhythm Neuro: COMMON NORMALS: patient oriented x3 SENSORIUM/ORIENTATION: Yes alert, Yes oriented to person and Yes oriented to place Psych: APPEARANCE: Yes well kempt Skin: NARRATIVE SKIN EXAM: Mildly raised pruritic rash on the left lateral hip with no vesicles no drainage. It is not hot to the touch. It is not in a dermatomal pattern has these appearance of a coalescing contact dermatitis Course Vital Signs: Vital signs: Vital Signs Temperature 97.7 F 05/25/20 08:47 Pulse Rate 60 05/25/20 08:47 Respiratory Rate 18 05/25/20 08:47 Blood Pressure 129/65 05/25/20 08:47 Pulse Oximetry 92 05/25/20 08:47 Discharge Plan Discharge Patient Disposition: Home Clinical Impression: Rash and other nonspecific skin eruption Condition: Stable Prescriptions: New triamcinolone acetonide 0.1 % ointment 1 applic TOPICAL BID Qty: 30 RF: 0 No Action trazodone 300 mg tablet 300 mg PO BEDTIME RF: 0 lovastatin 40 mg tablet 40 mg PO DAILY RF: 0 allopurinol 300 mg tablet 300 mg PO DAILY RF: 0 folic acid 1 mg tablet 1 mg PO DAILY RF: 0 bisoprolol-hydrochlorothiazide 10-6.25 mg tablet 1 tab PO DAILY RF: 0 multivitamin Tablet 1 tab PO DAILY RF: 0 methadone 10 mg tablet 20 mg PO TID 30 Days Qty: 180 RF: 0 methadone 10 mg tablet 20 mg PO Q8H 30 Days Qty: 180 RF: 0 hydrocodone-acetaminophen 10-325 mg tablet 1 tab PO QID PRN (Reason: pain) 30 Days Qty: 120 RF: 0 hydrocodone-acetaminophen 10-325 mg tablet 1 tab PO QID 30 Days Qty: 120 RF: 0 testosterone cypionate 200 mg/mL oil 200 mg IM .EVERY 10 DAYS Qty: 10 RF: 5 vitamin E 1,000 unit Capsule 1,000 unit PO DAILY RF: 0 senna 8.6 mg Tablet 8.6 mg PO DAILY RF: 0 Vitamin C 1,000 mg Tablet 1,000 mg PO DAILY RF: 0 aspirin 325 mg Tablet 325 mg PO DAILY RF: 0 Colace 100 mg Capsule 100 mg PO DAILY RF: 0 Ventolin HFA 90 mcg/actuation Hfa Aerosol Inhaler 2 puff INHALATION Q4H PRN (Reason: Shortness Of Breath) RF: 0 Claritin 10 mg Tablet 10 mg PO DAILY RF: 0 Discharge Orders: Discharge Order (Routine); Ordered 05/25/20 Ordered By: Jatinder Yeboah Referrals: Shant Ballesteros MD [Primary Care Provider] - Discharge Diet: Usual diet Discharge Activity: Resume usual activity Activity Restrictions/Additional Instructions: If persists recheck your primary care doctor or the lead caregiver. Coding Level of Care Code ED Windsurfing Instructor for Scarlett San
[2020-05-25 09:03] VITALS: BP 130/65; PULSE 65; RESP 20; O2SAT 92
== END 2020-05-25 09:03 | disposition home or self-care (01) ==
PROVIDERS: Emergency Provider Family Medicine; PCP Family Medicine
DX: R21 Rash and other nonspecific skin eruption (principal); Z79.82 Long term (current) use of aspirin
CPT/HCPCS: 12345; 99282

== ENCOUNTER → 2020-06-22 08:14 | Outpatient (BNVA) | payer MEDICARE, SELFPAY | PROVIDERS: PCP Family Medicine; Visit Provider Anesthesiology | DX: G89.4 Chronic pain syndrome (principal); M54.41 Lumbago with sciatica, right side; M54.42 Lumbago with sciatica, left side; M25.561 Pain in right knee; M25.562 Pain in left knee; M54.9 Dorsalgia, unspecified; Z79.891 Long term (current) use of opiate analgesic | CPT/HCPCS: 99214 ==

== ENCOUNTER 2020-07-11 10:12 | Outpatient (CLI) | payer MEDICARE, SELFPAY ==
--- NOTE | 2020-07-11 10:17 | XRR_ITS ---
PROCEDURE INFORMATION: Exam: XR Chest, 2 Views Exam date and time: 07/11/2020 10:56 AM Age: 65 years old Clinical indication: Shortness of breath; Prior surgery; Surgery type: Scoliosis correction TECHNIQUE: Imaging protocol: XR of the chest Views: 2 views. COMPARISON: CR XR chest 1V portable [id number] 10/27/2019 12:58 PM FINDINGS: Lungs: Emphysematous change and interstitial prominence. Pleural space: Left pleural thickening and/or effusion. Heart/Mediastinum: No cardiomegaly. Vasculature: Ectasia of the thoracic aorta. Bones/joints: Distraction Marr rods in association with scoliosis. Osteopenia and degenerative change. XR/XR chest 2V* [id number] IMPRESSION: 1. Emphysematous change and interstitial prominence. 2. Left pleural thickening and/or effusion.
[2020-07-11 10:53] LABS: Basophils # 0.1 10^3/uL (0.0-0.1); Basophils % 0.6 %; Eosinophils # 0.2 10^3/uL (0.0-0.8); Eosinophils % 2.8 %; Hematocrit 55.7 % (42.0-52.0); Hemoglobin 17.9 g/dL (11.7-16.6); Lymphocytes # 1.7 10^3/uL (0.8-4.8); Lymphocytes % 20.5 %; Mean Corpuscular HGB Conc 32.1 g/dL (30.0-36.0); Mean Corpuscular Hemoglobin 30.8 pg (28.0-34.0); Mean Corpuscular Volume 95.9 fL (80-94); Mean Platelet Volume 9.8 fL (7.4-10.4); Monocytes # 0.8 10^3/uL (0.2-0.9); Monocytes % 9.8 %; Neutrophils # 5.41 10^3/uL (1.8-7.7); Neutrophils % 65.6 %; Nucleated Red Blood Cells % 0 %; Platelet Count 185 10^3/cmm (130-400); Red Blood Count 5.81 10^6/uL (4.1-5.3); White Blood Count 8.3 10^3/uL (4.0-10.0)
[2020-07-12 16:37] LABS: Immunoglobulin E 61 kU/L (<OR=114)
== END 2020-07-11 10:13 | disposition home or self-care (01) ==
LOC: LAB 10:15
PROVIDERS: PCP Family Medicine; Visit Provider Internal Medicine Pulmonary Disease
DX: R06.02 Shortness of breath (principal)
CPT/HCPCS: 36415; 71046; 82785; 85025

== ENCOUNTER → 2020-07-17 16:37 | Outpatient (BNVA) | payer MEDICARE, SELFPAY | PROVIDERS: PCP Family Medicine; Visit Provider Internal Medicine Pulmonary Disease | DX: Z11.59 Encounter for screening for other viral diseases (principal) | CPT/HCPCS: 87635 ==

== ENCOUNTER 2020-07-21 09:02 | Outpatient (CLI) | payer MEDICARE, SELFPAY ==
--- NOTE | 2020-07-21 10:09 | PFTS_ITS ---
Date of Study:07/21/20 Date of Dictation: 07/21/2020 MECHANICS: Forced vital capacity (FVC) is normal Forced expiratory volume in one second (FEV1) is reduced FEV1/FVC is normal No significant response to bronchodilator FLOW VOLUME LOOP: Normal . LUNG VOLUMES: Total lung capacity (TLC) is normal. Residual volume (RV) is normal DIFFUSING CAPACITY FOR CARBON MONOXIDE: Normal . INTERPRETATION: Mildly reduced FEV1 borderline FEV1/FVC suggestive of mild obstructive ventilatory defect. No gas transfer defect, normal lung volumes. Correlate clinically. MTDD
== END 2020-07-21 09:03 | disposition home or self-care (01) ==
LOC: RT 09:05
PROVIDERS: PCP Family Medicine; Visit Provider Internal Medicine Pulmonary Disease
DX: R06.02 Shortness of breath (principal)
CPT/HCPCS: 94060; 94726; 94729; J7611

== ENCOUNTER 2020-08-01 09:10 | Outpatient (CLI) | payer MEDICARE, SELFPAY ==
--- NOTE | 2020-08-01 09:15 | CT_ITS ---
WS: [id number] CT CHEST WITHOUT INTRAVENOUS CONTRAST HISTORY: mesothelioma and pleural effusion TECHNIQUE: Contiguous 5 mm axial imaging performed on the thorax. Coronal and sagittal reformats are submitted. All CT scans at [facility] use at least one of these dose optimization techniq ues: automated exposure control; mA and/or kV adjustment per patient size (includes targeted exams wh ere dose is matched to clinical indication); or iterative reconstruction. CONTRAST: None DLP: 1102.51 mGycm COMPARISON: 05/01/2017 Lungs and central airway: Mild stable elevation of the LEFT hemidiaphragm. Linear scarring and atelec tasis LEFT lower lobe. No pulmonary nodules or masses. No pneumonia. Pleura: No pleural effusion. There is mild pleural thickening at the LEFT lung base. No calcification . Heart and pericardium: Mildly enlarged. No pericardial effusion. Mediastinum and tino: Calcified RIGHT hilar lymph nodes. No suspicious adenopathy. Vessels: Mildly ectatic atherosclerotic aorta. No aneurysm. Pulmonary arteries are prominent. Chest wall and lower neck: Large nodular LEFT thyroid extends substernal. LEFT thyroid is enlarged di splacing the trachea slightly to the RIGHT of midline. Upper abdomen: Artifact from the patient's spinal hardware through the upper abdominal structures. No mass identified. Osseous structures: Extensive fusion hardware throughout the thoracic spine causing significant artif act through the posterior thorax. No fractures of the hardware. CT/CT chest wo con [id number] IMPRESSION: 1. No pleural plaque or pneumonia. 2. Minimal scarring and pleural thickening at the LEFT lung base. 3. Mild pulmonary hypertension. 4. Substernal LEFT goiter.
== END 2020-08-01 09:11 | disposition home or self-care (01) ==
PROVIDERS: PCP Family Medicine; Visit Provider Internal Medicine Pulmonary Disease
DX: C45.9 Mesothelioma, unspecified (principal); J90 Pleural effusion, not elsewhere classified; I27.20 Pulmonary hypertension, unspecified
CPT/HCPCS: 71250

== ENCOUNTER 2020-08-02 20:00 | Outpatient (CLI) | payer MEDICARE, SELFPAY | END 2020-08-02 20:01 | disposition home or self-care (01) | LOC: SLEEP 08-03 11:04 | PROVIDERS: PCP Family Medicine; Visit Provider Internal Medicine Pulmonary Disease | DX: G47.33 Obstructive sleep apnea (adult) (pediatric) (principal) | CPT/HCPCS: 95810 ==

== ENCOUNTER → 2020-08-17 08:14 | Outpatient (BNVA) | payer MEDICARE, SELFPAY | PROVIDERS: PCP Family Medicine; Referring Provider Internal Medicine Pulmonary Disease; Visit Provider Internal Medicine | DX: E04.9 Nontoxic goiter, unspecified (principal); I10 Essential (primary) hypertension; G89.4 Chronic pain syndrome | CPT/HCPCS: 99204 ==

== ENCOUNTER → 2020-08-19 13:06 | Outpatient (BNVA) | payer MEDICARE, SELFPAY | PROVIDERS: PCP Family Medicine; Visit Provider Anesthesiology | DX: M54.42 Lumbago with sciatica, left side (principal); M54.41 Lumbago with sciatica, right side; M25.561 Pain in right knee; M25.562 Pain in left knee; M54.9 Dorsalgia, unspecified; M25.512 Pain in left shoulder; Z79.891 Long term (current) use of opiate analgesic | CPT/HCPCS: 99214 ==

== ENCOUNTER 2020-09-02 16:05 | Outpatient (CLI) | payer MEDICARE, SELFPAY ==
[2020-09-02 17:23] LABS: Free T4 Free Thyroxine 1.34 ng/dL (0.82-1.77); Thyroid Stimulating Hormone 0.95 uIU/mL (0.27-4.20)
[2020-09-03 09:17] LABS: T3 Total 108 ng/dL (76-181)
== END 2020-09-02 16:06 | disposition home or self-care (01) ==
PROVIDERS: PCP Family Medicine; Visit Provider Internal Medicine
DX: E04.9 Nontoxic goiter, unspecified (principal)
CPT/HCPCS: 36415; 84439; 84443; 84480

== ENCOUNTER 2020-09-12 20:00 | Outpatient (CLI) | payer MEDICARE, SELFPAY | END 2020-09-12 20:01 | disposition home or self-care (01) | LOC: SLEEP 09-13 10:04 | PROVIDERS: PCP Family Medicine; Visit Provider Internal Medicine Pulmonary Disease | DX: G47.33 Obstructive sleep apnea (adult) (pediatric) (principal) | CPT/HCPCS: 95811 ==

== ENCOUNTER 2020-09-27 12:30 | Outpatient (CLI) | payer MEDICARE, SELFPAY ==
--- NOTE | 2020-09-27 12:50 | US_ITS ---
WS: [id number] ULTRASOUND THYROID TECHNIQUE: Ultrasound of the thyroid. CLINICAL INFORMATION: LARGE GOITER-ASSESS FOR NODULES COMPARISON: None. FINDINGS: Thyroid: Right and left thyroid lobes are normal in size and echotexture. Complex cystic right thyroid nodule measuring 10 x 7 x 9.4 mm in the mid right thyroid. Heterogeneous solid left thyroid nodule measuring 3.7 2.7 x 3.6 CM. Recommend further evaluation with ultrasound-guided FNA. This demonstrates some internal heterogeneity and cystic change. Right thyroid lobe: 4.6 cm x 2.1 cm x 2.2 cm Left thyroid lobe: 6.1 cm x 3.1 cm x 3.0 cm. Isthmus: 0.6 mm. Cervical lymphadenopathy: None. US/US thyroid [id number] IMPRESSION: 1. Bilateral cystic and solid thyroid nodules. 2. Complex cystic right thyroid nodule measuring 10 x 7 x 9.4 mm in the mid ri ght thyroid. 3. Heterogeneous solid left thyroid nodule measuring 3.7 2.7 x 3.6 CM. Recomme nd further evaluation with ultrasound-guided FNA. This demonstrates some international guest coordinator al heterogeneity and cystic change.
== END 2020-09-27 12:31 | disposition home or self-care (01) ==
LOC: US 12:32
PROVIDERS: PCP Family Medicine; Visit Provider Internal Medicine
DX: E04.9 Nontoxic goiter, unspecified (principal); E04.2 Nontoxic multinodular goiter
CPT/HCPCS: 76536

== ENCOUNTER 2020-10-10 08:28 | Outpatient (CLI) | payer MEDICARE, SELFPAY ==
--- NOTE | 2020-10-10 09:30 | US_ITS ---
WS: [id number] ULTRASOUND-GUIDED FNA OF LEFT THYROID NODULE INDICATION: Thyroid nodule FNA TECHNIQUE: The procedure including risks benefits and complications were discussed with the patient w ho agreed to proceed. Using sterile technique, patient was prepped and draped in usual sterile fashio n. After 1% lidocaine, using ultrasound guidance, 4 passes were made using a 25-gauge needle into the left thyroid nodule with active aspiration. Pathology was present for cytology slide preparation. No immediate complications. Patient remained in the department 15 minutes postprocedure to monitor for hematoma. US/US biopsy thyroid [id number] IMPRESSION: Uncomplicated ultrasound-guided FNA.
== END 2020-10-10 08:29 | disposition home or self-care (01) ==
PROVIDERS: PCP Family Medicine; Visit Provider Internal Medicine
DX: E04.1 Nontoxic single thyroid nodule (principal)
CPT/HCPCS: 10005; 88173; 88305

== ENCOUNTER 2020-10-16 19:58 | Inpatient (IN) | payer MEDICARE, SELFPAY ==
[2020-10-16] VITALS (11 sets, daily range): BP systolic 92–134; BP diastolic 67–77; PULSE 90–105; RESP 17–29; TEMP 36.9–37.1; O2SAT 91–94; BMI 36.5
--- NOTE | 2020-10-16 20:28 | XR_ITS ---
WS: [id number] PORTABLE CHEST HISTORY: sob COMPARISON: 07/11/2020 Hyperinflation from emphysema. New area of opacification and increasing consolidation in the lingula and LEFT lower lung field. Overall there has been increase in the mild haziness and scattered opacifi cations bilaterally. Mild pleural thickening at the LEFT. Cardiac size: Mildly enlarged cardiac silhouette. Mediastinum/Aorta: Mild atherosclerosis aorta. Marr rods vertically intact. XR/XR chest 1V portable [id number] IMPRESSION: 1. Increasing consolidation in the LEFT lower lung field consistent with pneum onia and/or atelectasis. 2. Additional diffuse mild haziness may be edema or pneumonitis.
--- NOTE | 2020-10-16 20:29 | ECG_ITS ---
[facility] Test Date: 2020-10-16 Pat Name: Charan Voss Department: Room: Gender: Male Floral Clerk: : 1955 Requested By: Jamie Farrar Order Number: [id number] Hilary MD: Raiza Orourke M.D. Measurements Intervals [place] Rate: 101 P: [place]: QRS: -26 QRSD: 120 T: 123 QT: 370 QTc: 481 Interpretive Statements ATRIAL FIBRILLATION WITH RAPID VENTRICULAR RESPONSE BORDERLINE LEFT AXIS DEVIATION [QRS AXIS < -20] MODERATE INTRAVENTRICULAR CONDUCTION DELAY [110+ ms QRS DURATION] ST DEVIATION AND MODERATE T-WAVE ABNORMALITY, CONSIDER LATERAL ISCHEMIA [-0.1+ mV T WAVE IN I/aVL/V5/V6] Compared to ECG 10/27/2019 14:35:47 T-wave abnormality now present Possible ischemia now present Sinus bradycardia no longer present Sinus arrhythmia no longer present Electronically Signed On 10-17-2020 18:39:48 AERIAL PHOTOGRAPH INTERPRETER by Raiza Orourke M.D. [id number]
[2020-10-16] MEDS: sodium chloride 0.9% 1,000 ML 999 ML IV ×2 (20:40→21:35)
[2020-10-16 20:52] LABS: ABG PH Result 7.48 (7.35-7.45); Arterial Blood Gas Hematocrit 60.9 % (42-52); Base Excess ABG 3.6 mmol/L (-2.0-2.0); Blood Gas Operator Identificat HARKR; Blood Gas Sample Site Brachial, right; Blood Gas Sample Type Arterial; Carboxyhemoglobin 1.1 %THgb (0.4-20.1); HCO3 ABG 26.8 mmol/L (22-26); HGB O2 Sat 90.5 % (95-100); Methemoglobin 0.5 % (0.4-1.5); Oxygen Device ROOM AIR; PO2 ABG 58.8 mmHg (80.0-100.0); Total Hemoglobin 19.9 g/dL (14-18)
[2020-10-16 20:56] LABS: Basophils # 0.1 10^3/uL (0.0-0.1); Basophils % 0.5 %; Eosinophils # 0.2 10^3/uL (0.0-0.8); Eosinophils % 2.1 %; Hematocrit 62.3 % (42.0-52.0); Hemoglobin 20.2 g/dL (11.7-16.6); Lymphocytes # 1.6 10^3/uL (0.8-4.8); Lymphocytes % 16.6 %; Mean Corpuscular HGB Conc 32.4 g/dL (30.0-36.0); Mean Corpuscular Hemoglobin 30.1 pg (28.0-34.0); Mean Corpuscular Volume 92.7 fL (80-94); Mean Platelet Volume 9.7 fL (7.4-10.4); Monocytes % 10.6 %; Neutrophils # 6.27 10^3/uL (1.8-7.7); Neutrophils % 67.1 %; Nucleated Red Blood Cells % 0 %; Platelet Count 470 10^3/cmm (130-400); Red Blood Count 6.72 10^6/uL (4.1-5.3); Red Cell Distribution Width 15.9 % (12.1-15.1); White Blood Count 9.4 10^3/uL (4.0-10.0)
[2020-10-16 21:03] LABS: INR 1.13 (0.8-1.2)
[2020-10-16 21:06] LABS: D Dimer 0.66 ug/mIFEU (0-0.59)
[2020-10-16 21:20] LABS: Alanine Aminotransferase 65 U/L (0-41); Albumin Level 3.7 g/dL (3.5-5.2); Alkaline Phosphatase 75 IU/L (40-130); Anion Gap 17.6 (5-19); Aspartate Amino Transferase 47 U/L (0-40); Blood Urea Nitrogen 26 mg/dL (8-23); Calcium 9.1 mg/dL (8.5-10.5); Carbon Dioxide 27 mmol/L (22-29); Chloride 95 mmol/L (98-107); Globulin 3.4 g/dL (1.3-4.6); Glomerular Filtration Rate 60.8 mL/min (90-130); Glucose 128 mg/dL (65-115); Magnesium 2.7 mg/dL (1.7-2.3); NT Pro B Type Natriuretic Pept 1276 pg/mL (0-125); Osmolality Calculated 288 mOsm/kg (285-295); Potassium 3.6 mmol/L (3.5-5.1); Sodium 136 mmol/L (136-145); Total Bilirubin 0.9 mg/dL (0.15-1.2); Total Protein 7.1 g/dL (6.6-8.7)
[2020-10-16 21:29] LABS: SARS Covid-2 Antigen Negative (Negative)
[2020-10-16 21:35] LABS: Troponin(5th) Baseline 31 ng/L (0-15)
--- NOTE | 2020-10-16 22:16 | PC.NURSE ---
pt ate crackers, jello and water.
--- NOTE | 2020-10-16 22:29 | ECG_ITS ---
[facility] Test Date: 2020-10-16 Pat Name: Charan Voss Department: Room: Gender: Male Business Development Analyst: : 1955 Requested By: Jamie Farrar Order Number: [id number] Hilary MD: Raiza Orourke M.D. Measurements Intervals [place] Rate: 96 P: [place]: QRS: -29 QRSD: 116 T: 135 QT: 350 QTc: 444 Interpretive Statements ATRIAL FIBRILLATION BORDERLINE LEFT AXIS DEVIATION [QRS AXIS < -20] MODERATE INTRAVENTRICULAR CONDUCTION DELAY [110+ ms QRS DURATION] ST DEVIATION AND MODERATE T-WAVE ABNORMALITY, CONSIDER LATERAL ISCHEMIA [-0.1+ mV T WAVE IN I/aVL/V5/V6] Compared to ECG 10/27/2019 14:35:47 T-wave abnormality now present Possible ischemia now present Sinus bradycardia no longer present Sinus arrhythmia no longer present Electronically Signed On 10-17-2020 18:49:36 DIRECTOR FUNDS DEVELOPMENT by Raiza Orourke M.D. [id number] f
[2020-10-16 22:46] LABS: Lactic Sepsis W/Reflex 2.5 mmol/L (0.5-2.2)
[2020-10-16 23:08] LABS: Troponin 5 2HR 22.51 ng/L (0-15)
[2020-10-16 23:12] LABS: Troponin 5 2HR Delta -8.49 ABS# (0-10)
--- NOTE | 2020-10-16 23:15 | PC.NURSE ---
waiting for results
[2020-10-16 23:57] LABS: Reflex Lactate Order REFLEX LACTIC ORDERD
[2020-10-17] VITALS (20 sets, daily range): BP systolic 100–137; BP diastolic 63–78; PULSE 67–110; RESP 18–31; TEMP 36.6–37.6; O2SAT 89–97
--- NOTE | 2020-10-17 01:03 | PC.NURSE ---
Pt stated no headache now and is c/o about needing update with information. Pt stated no headache now.
--- NOTE | 2020-10-17 01:15 | PC.NURSE ---
Provider at bedside
--- NOTE | 2020-10-17 02:29 | ECG_ITS ---
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 Measurements Intervals [place] Rate: 99 P: [place]: QRS: -18 QRSD: 116 T: 146 QT: 352 QTc: 454 Interpretive Statements ATRIAL FIBRILLATION POSSIBLE ANTERIOR MYOCARDIAL INFARCTION , OF INDETERMINATE AGE [30 ms Q WAVE IN V3/V4, OR R < 0.2 mV IN V4] MODERATE T-WAVE ABNORMALITY, CONSIDER LATERAL ISCHEMIA [-0.1+ mV T WAVE IN I/aVL/V5/V6] WARNING: DATA QUALITY MAY AFFECT INTERPRETATION Compared to ECG 10/16/2020 20:58:45 Myocardial infarct finding now present Intraventricular conduction delay no longer present T-wave abnormality still present Possible ischemia still present Electronically Signed On 10-17-2020 18:53:20 POLICE INSPECTOR by Raiza Orourke M.D. [email or web address] [id number]
--- NOTE | 2020-10-17 02:30 | PC.NURSE ---
Pt requested a meal. Provided a sandwich and snack. Pt stated I haven't eaten for 2 weeks .
[2020-10-17 03:07] LABS: Troponin 5 6HR 26.17 ng/L (0-15); Troponin 5 6HR Delta -4.83 ng/L (0-12)
--- NOTE | 2020-10-17 03:28 | PC.NURSE ---
Pt was wearing Oxygen, except it was pull out away from his nostrils. Review with pt the importance of keep the 0x in his nose. pt request 2nd snack.
--- NOTE | 2020-10-17 03:29 | PC.NURSE ---
Provided pt with max.
--- NOTE | 2020-10-17 04:26 | W.ED.COVID ---
HPI - COVID General: Chief Complaint: COVID symptoms Stated Complaint: WEAKNESS Time Seen by Provider: 10/16/20 20:17 Triage information: Has fever, cough or shortness of breath. Exposure to COVID + person last 14 days History of Present Illness: HPI Narrative: 65-year-old male with 10 days to 2 weeks of decreased intake, vomiting, more so diarrhea, fever, generalized weakness. States he was barely able to get up today. He did have an exposure to COVID-19. He is assumed this is what he had. MD complaint: reported COVID exposure COVID 19 common symptoms: positive chills, non-productive cough, dyspnea, body aches, headache(s), throat pain, nasal congestion, nausea and vomiting; negative productive cough COVID 19 other sytmptoms: negative chest pain or confusion COVID Results: SARS-CoV-2 Antigen (Rapid) Negative (Negative) 10/16/20 20:12 10/16/20 SARS-CoV-2 RNA (RT-PCR) Not detected (NOT DETECTED) 07/17/20 16:37 07/17/20 Nasal/Oral Coronavirus 2019 PCR Pending 10/16/20 20:12 10/16/20 Review of Systems Const: Reports: fever(s), chills, body aches and change in appetite Eyes: Denies: change in vision ENMT: Reports: throat pain and nasal congestion; Denies: epistaxis Card: Denies: chest pain, palpitations or irregular heart rhythm Resp: Reports: dyspnea, non-productive cough and wheezing; Denies: productive cough GI: Reports: nausea and vomiting; Denies: abdominal pain or hematemesis : Denies: flank pain, difficulty urinating or urinary frequency Neuro: Reports: headache(s) and dizziness; Denies: confusion or Slurred speech present [facility] ED PFSH: Medical History (Updated 10/17/20 @ 05:38 by Lata Salmeron MD) Allergies Asthma Bilateral knee pain Chronic pain syndrome Erectile dysfunction Hypertension Obstructive sleep apnea hypopnea, mild Opioid contract exists Pain in left shoulder Restrictive lung disease due to kyphoscoliosis Right renal stone Substernal goiter Suspected exposure to asbestos Testosterone deficiency Surgical History H/O ankle fusion H/O arthroscopic knee surgery H/O wrist surgery History of appendectomy History of back surgery History of shoulder surgery S/P ureteral stent placement Family History Other CAD (coronary artery disease) Cancer Hypertension Stroke Social History (Updated 10/17/20 @ 05:40 by Lata Salmeron MD) Smoking and tobacco status: former smoker Quit status (tobacco): has quit using tobacco Year quit tobacco: 1975 [id number] Second hand smoke exposure: Yes Alcohol intake: never Adopted: No Caregiver/support person: No Lives independently: Yes Household members: none Housing: House Marital status: / Current occupational status: retired Current gender identity: Male Physical Exam Const: GENERAL APPEARANCE: well developed and ill appearing ORIENTATION/CONSCIOUSNESS: Yes oriented to person and Yes oriented to place HENMT: COMMON NORMALS: normocephalic, external ears normal and Normal external nose present HEAD & SCALP: normocephalic FACE & SINUS: normal facial exam NOSE: Normal external nose present and No nasal discharge present EXTERNAL EAR: Yes external ears normal Eye: COMMON NORMALS: Equal, round and reactive pupils present, EOMs intact bilaterally and conjunctivae normal EYELID: eyelids normal CONJUNCTIVA: Yes conjunctivae normal PUPIL: Yes Equal, round and reactive pupils present Neck/C-Spine: GENERAL: No tracheal deviation Chest: COMMONS NORMALS: normal inspection of the chest CHEST: No tenderness Resp: COMMON NORMALS: clear to auscultation bilaterally EFFORT & INSPECTION: Yes tachypneic, Yes respiratory distress, No retractions, No uses accessory muscles and No tracheal deviation AUSCULTATION: clear to auscultation bilaterally, no rhonchi, no wheezes and diminished lung sounds Cardio: COMMON NORMALS: regular rhythm RATE: tachycardic RHYTHM: regular rhythm HEART SOUNDS: no murmurs PERIPHERAL PULSES: radial pulses present GI: INSPECTION: No abdominal distension AUSCULTATION: No Hyperactive bowel sounds present and No Hypoactive bowel sounds present PALPATION: No Guarding due to palpation present (GI) and No Rigid due to palpation PERCUSSION: no dullness to percussion and no tympanic to percussion Neuro: SENSORIUM/ORIENTATION: Yes oriented to person and Yes oriented to place Psych: COMMON NORMALS: mental status grossly normal Skin: COMMON NORMALS: no rashes or lesions noted GENERAL SKIN EXAM: no rashes or lesions noted Course Consultations: Consultation #1: [place] Vital Signs: Vital signs: Vital Signs Temperature 98.7 F 10/16/20 20:23 Pulse Rate 102 H 10/17/20 05:30 Respiratory Rate 23 H 10/17/20 05:30 Blood Pressure 111/68 10/17/20 05:30 Pulse Oximetry 92 10/17/20 05:30 MDM - COVID MDM Narrative: Medical decision making narrative: 65-year-old gentleman with shortness of breath, body aches, generalized weakness, and fever. He had quite a bit of diarrhea as well. Is hemodynamically stable, although he is mildly tachycardic at times. His hemoglobin is 20. His BUN is 26 with a creatinine of 1.2. White blood cell count is 9.4. He has bilateral infiltrates on chest x-ray. Concerning is his hypoxia and his significant polycythemia. He was given 2 L of fluid in the ER. He will come in for repeat H&H monitoring of electrolytes, and oxygen support. Lab Data: Labs: Lab Results 10/16/20 10/16/20 10/16/20 Range/Units 20:12 20:12 20:12 WBC 9.4 (4.0-10.0) 10^3/ uL RBC 6.72 H (4.1-5.3) 10^6/u L Hgb 20.2 H (11.7-16.6) g/dL Hct 62.3 H (42.0-52.0) % MCV 92.7 (80-94) fL MCH 30.1 (28.0-34.0) pg MCHC 32.4 (30.0-36.0) g/dL RDW 15.9 H (12.1-15.1) % Plt Count 470 H (130-400) 10^3/c mm MPV 9.7 (7.4-10.4) fL Neut % (Auto) 67.1 % Lymph % (Auto) 16.6 % Mcclain % (Auto) 10.6 % Eos % (Auto) 2.1 % Baso % (Auto) 0.5 % Neut # (Auto) 6.27 (1.8-7.7) 10^3/u L Lymph # (Auto) 1.6 (0.8-4.8) 10^3/u L Mcclain # (Auto) 1.0 H (0.2-0.9) 10^3/u L Eos # (Auto) 0.2 (0.0-0.8) 10^3/u L Baso # (Auto) 0.1 (0.0-0.1) 10^3/u L Nucleated RBC % (a uto) 0 % Nucleated RBCs # 0.0 /100WBC PT 14.80 (12.1-14.9) SECO NDS INR 1.13 (0.8-1.2) D-Dimer 0.66 H (0-0.59) ug/mIFE U Specimen Type Sample Site ABG pH (7.35-7.45) ABG pCO2 (35-45) mmHg ABG pO2 (80.0-100.0) mmH g ABG HCO3 (22-26) mmol/L ABG Base Excess (-2.0-2.0) mmol/ L Blair Test Hematocrit (42-52) % Hgb O2 Saturation (95-100) % Carboxyhemoglobin (0.4-20.1) %THgb Methemoglobin (0.4-1.5) % Total Hemoglobin (14-18) g/dL O2 Delivery Device FiO2 % Director Funds Development ID Sodium 136 (136-145) mmol/L Potassium 3.6 (3.5-5.1) mmol/L Chloride 95 L (98-107) mmol/L Carbon Dioxide 27 (22-29) mmol/L Anion Gap 17.6 (5-19) BUN 26 H (8-23) mg/dL Creatinine 1.2 (0.7-1.2) mg/dL GFR Calculation 60.8 L (90-130) mL/min Glucose 128 H (65-115) mg/dL Calculated Osmolal ity 288 (285-295) mOsm/k g Lactic Acid (0.5-2.2) mmol/L Calcium 9.1 (8.5-10.5) mg/dL Magnesium 2.7 H (1.7-2.3) mg/dL Total Bilirubin 0.9 (0.15-1.2) mg/dL AST 47 H (0-40) U/L ALT 65 H (0-41) U/L Alkaline Phosphata se 75 (40-130) IU/L Troponin T Baselin e (0-15) ng/L Troponin T 120 Min [place] (0-15) ng/L Delta Troponin T (0-10) ABS# Troponin T Hi Sens 6Hr (0-15) ng/L Troponin T Hi Sens 6Hr Delta (0-12) ng/L NT-Pro-B Natriuret Pep 1276 H (0-125) pg/mL Total Protein 7.1 (6.6-8.7) g/dL Albumin 3.7 (3.5-5.2) g/dL Globulin 3.4 (1.3-4.6) g/dL SARS-CoV-2 Ag (Rap id) (Negative) 10/16/20 10/16/20 10/16/20 Range/Units 20:12 20:12 20:28 WBC (4.0-10.0) 10^3/ uL RBC (4.1-5.3) 10^6/u L Hgb (11.7-16.6) g/dL Hct (42.0-52.0) % MCV (80-94) fL MCH (28.0-34.0) pg MCHC (30.0-36.0) g/dL RDW (12.1-15.1) % Plt Count (130-400) 10^3/c mm MPV (7.4-10.4) fL Neut % (Auto) % Lymph % (Auto) % [place]clain % (Auto) % Eos % (Auto) % Baso % (Auto) % Neut # (Auto) (1.8-7.7) 10^3/u L Lymph # (Auto) (0.8-4.8) 10^3/u L [place]clain # (Auto) (0.2-0.9) 10^3/u L Eos # (Auto) (0.0-0.8) 10^3/u L Baso # (Auto) (0.0-0.1) 10^3/u L Nucleated RBC % (a uto) % Nucleated RBCs # /100WBC PT (12.1-14.9) SECO NDS INR (0.8-1.2) D-Dimer (0-0.59) ug/mIFE U Specimen Type Arterial Sample Site Brachial, right ABG pH 7.48 H (7.35-7.45) ABG pCO2 36.0 (35-45) mmHg ABG pO2 58.8 L (80.0-100.0) mmH g ABG HCO3 26.8 H (22-26) mmol/L ABG Base Excess 3.6 H (-2.0-2.0) mmol/ L Blair Test N/a Hematocrit 60.9 H (42-52) % Hgb O2 Saturation 90.5 L (95-100) % Carboxyhemoglobin 1.1 (0.4-20.1) %THgb Methemoglobin 0.5 (0.4-1.5) % Total Hemoglobin 19.9 H (14-18) g/dL O2 Delivery Device Room air FiO2 21.0 % Director Funds Development ID Harkr Sodium (136-145) mmol/L Potassium (3.5-5.1) mmol/L Chloride (98-107) mmol/L Carbon Dioxide (22-29) mmol/L Anion Gap (5-19) BUN (8-23) mg/dL Creatinine (0.7-1.2) mg/dL GFR Calculation (90-130) mL/min Glucose (65-115) mg/dL Calculated Osmolal ity (285-295) mOsm/k g Lactic Acid (0.5-2.2) mmol/L Calcium (8.5-10.5) mg/dL Magnesium (1.7-2.3) mg/dL Total Bilirubin (0.15-1.2) mg/dL AST (0-40) U/L ALT (0-41) U/L Alkaline Phosphata se (40-130) IU/L Troponin T Baselin e 31 H (0-15) ng/L Troponin T 120 Min [place] (0-15) ng/L Delta Troponin T (0-10) ABS# Troponin T Hi Sens 6Hr (0-15) ng/L Troponin T Hi Sens 6Hr Delta (0-12) ng/L NT-Pro-B Natriuret Pep (0-125) pg/mL Total Protein (6.6-8.7) g/dL Albumin (3.5-5.2) g/dL Globulin (1.3-4.6) g/dL SARS-CoV-2 Ag (Rap id) Negative (Negative) 0110/16/20 10/17/20 Range/Units 21:34 22:45 02:25 WBC (4.0-10.0) 10^3/ uL RBC (4.1-5.3) 10^6/u L Hgb (11.7-16.6) g/dL Hct (42.0-52.0) % MCV (80-94) fL MCH (28.0-34.0) pg MCHC (30.0-36.0) g/dL RDW (12.1-15.1) % Plt Count (130-400) 10^3/c mm MPV (7.4-10.4) fL Neut % (Auto) % Lymph % (Auto) % [place]cl[place] % (Auto) % Eos % (Auto) % Baso % (Auto) % Neut # (Auto) (1.8-7.7) 10^3/u L Lymph # (Auto) (0.8-4.8) 10^3/u L [place]cl[place] # (Auto) (0.2-0.9) 10^3/u L Eos # (Auto) (0.0-0.8) 10^3/u L Baso # (Auto) (0.0-0.1) 10^3/u L Nucleated RBC % (a uto) % Nucleated RBCs # /100WBC PT (12.1-14.9) SECO NDS INR (0.8-1.2) D-Dimer (0-0.59) ug/mIFE U Specimen Type Sample Site ABG pH (7.35-7.45) ABG pCO2 (35-45) mmHg ABG pO2 (80.0-100.0) mmH g ABG HCO3 (22-26) mmol/L ABG Base Excess (-2.0-2.0) mmol/ L Blair Test Hematocrit (42-52) % Hgb O2 Saturation (95-100) % Carboxyhemoglobin (0.4-20.1) %THgb Methemoglobin (0.4-1.5) % Total Hemoglobin (14-18) g/dL O2 Delivery Device FiO2 % Director Funds Development ID Sodium (136-145) mmol/L Potassium (3.5-5.1) mmol/L Chloride (98-107) mmol/L Carbon Dioxide (22-29) mmol/L Anion Gap (5-19) BUN (8-23) mg/dL Creatinine (0.7-1.2) mg/dL GFR Calculation (90-130) mL/min Glucose (65-115) mg/dL Calculated Osmolal ity (285-295) mOsm/k g Lactic Acid 2.5 H (0.5-2.2) mmol/L Calcium (8.5-10.5) mg/dL Magnesium (1.7-2.3) mg/dL Total Bilirubin (0.15-1.2) mg/dL AST (0-40) U/L ALT (0-41) U/L Alkaline Phosphata se (40-130) IU/L Troponin T Baselin e (0-15) ng/L Troponin T 120 Min [place] 22.51 H (0-15) ng/L Delta Troponin T -8.49 L (0-10) ABS# Troponin T Hi Sens 6Hr 26.17 H (0-15) ng/L Troponin T Hi Sens 6Hr Delta -4.83 L (0-12) ng/L NT-Pro-B Natriuret Pep (0-125) pg/mL Total Protein (6.6-8.7) g/dL Albumin (3.5-5.2) g/dL Globulin (1.3-4.6) g/dL SARS-CoV-2 Ag (Rap id) (Negative) COVID Results: SARS-CoV-2 Antigen (Rapid) Negative (Negative) 10/16/20 20:12 10/16/20 SARS-CoV-2 RNA (RT-PCR) Not detected (NOT DETECTED) 07/17/20 16:37 07/17/20 Nasal/Oral Coronavirus 2019 PCR Pending 10/16/20 20:12 10/16/20 Discharge Plan Discharge Patient Disposition: Admitted As Inpatient Admit Provider: Lata Salmeron Clinical Impression: Respiratory failure, Suspected severe acute respiratory syndrome coronavirus 2 (SARS-CoV-2) infection Condition: Stable Coding Level of Care Code ED Interlocking Installer for [facility] Fwd Exam Comprehensive
[2020-10-17] MEDS: ketorolac 30 mg/mL INJ IVP (05:31)
--- NOTE | 2020-10-17 05:38 | P.HP_ITS ---
Providers/Chief Complaint Admitting Physician: Lata Salmeron MD Primary Care Provider: Shant Ballesteros MD Chief Complaint: WEAKNESS History of Present Illness Charan Voss is a 65 year old male who presented to the emergency room because he felt like he might . He has been sick for a couple of weeks. He reports being very tired, more short of breath than usual, low-grade fevers, generalized aches and pains, headache, chills, nausea, diarrhea several times a day and general weakness. He has not been able to care for himself. He did have a biopsy of a thyroid nodule last week. He reported not feeling well but he was afebrile at the time. Denies any clearly known contact with Covid positive people but has been seen at doctor's appointments and such. He chronically has difficulty smelling due to prior sinus surgery but reports a decrease since of taste lately. He has felt very dizzy with standing from a seated position. His symptoms have progressed to the point that he is having difficulty caring for himself at home. On arrival to the emergency room he did have some tachypnea and low oxygen saturations into the upper 80s low 90s. He was put on 2 L by nasal cannula. Several abnormalities were identified and he is being admitted for further evaluation and treatment. Review of Systems Const: Reports: fever(s), chills and change in appetite Eyes: Denies: change in vision ENMT: Reports: throat pain, dry mouth and nasal congestion Card: Reports: palpitations; Denies: chest pain or edema Resp: Reports: dyspnea and non-productive cough; Denies: productive cough GI: Reports: abdominal pain, nausea and diarrhea; Denies: vomiting or constipation : Denies: difficulty urinating Musc: Reports: other (Left ankle fused) Skin/Breast: Denies: rash or pruritus Neuro: Reports: headache(s), numbness in extremities (Chronic loss of sensation below the knees bilaterally), difficulty walking and dizziness; Denies: frequent falls Psych: Denies: depression Leif/Lymph: Denies: easy bruising or easy bleeding Medications/Allergies Home Medications Medication Instructions Recorded Confirmed Last Taken Type allopurinol 300 mg tablet 300 mg PO DAILY 10/15/19 08/19/20 10/26/19 History bisoprolol 10 1 tab PO DAILY 10/15/19 08/19/20 10/26/19 History mg-hydrochlorothiazide 6.25 mg tablet folic acid 1 mg tablet 1 mg PO DAILY 10/15/19 08/19/20 Unknown History lovastatin 40 mg tablet 40 mg PO DAILY tab 10/15/19 08/19/20 10/26/19 History multivitamin 1 tab PO DAILY 10/15/19 08/19/20 10/26/19 History trazodone 300 mg tablet 300 mg PO BEDTIME tab 10/15/19 08/19/20 10/26/19 History albuterol sulfate [Ventolin HFA] 2 puff INHALATION Q4H PRN 10/27/19 08/19/20 Unknown History ascorbic acid (vitamin C) [Vitamin 1,000 mg PO DAILY 10/27/19 08/19/20 10/26/19 History C] aspirin 325 mg PO DAILY 10/27/19 08/19/20 10/27/19 History docusate sodium [Colace] 100 mg PO DAILY 10/27/19 08/19/20 10/26/19 History loratadine [Claritin] 10 mg PO DAILY 10/27/19 08/19/20 10/26/19 History senna 8.6 mg PO DAILY 10/27/19 08/19/20 10/26/19 History vitamin E 1,000 unit PO DAILY 10/27/19 08/19/20 10/26/19 History triamcinolone acetonide 1 applic TOPICAL BID #30 gm 05/25/20 08/19/20 Unknown Rx hydrocodone 10 mg-acetaminophen 1 tab PO QID 30 Days #120 tab 06/22/20 08/19/20 Unknown Rx 325 mg tablet methadone 10 mg tablet 20 mg PO Q8H 30 Days #180 tab 06/22/20 08/19/20 Unknown Rx methadone 10 mg tablet 20 mg PO TID 30 Days #180 tab 06/22/20 08/19/20 Unknown Rx budesonide-formoterol HFA 80 2 puff INHALATION BID #10.2 gm 07/11/20 08/19/20 Un known Rx mcg-4.5 mcg/actuation aerosol inhaler testosterone cypionate 200 mg/mL 200 mg IM .EVERY 10 DAYS #10 ml 08/11/20 08/19/20 Unknown Rx intramuscular oil hydrocodone 10 mg-acetaminophen 2 tab PO TID PRN 30 Days #180 tab 08/19/20 08/19/20 Unknown Rx 325 mg tablet Allergies Allergy/AdvReac Type Severity Reaction Status Date / Time oats Allergy DIARRHEA Verified 10/16/20 20:09 caffeine AdvReac Unknown PALPITATION Verified 10/16/20 20:09 S acetaminophen [From Percocet] AdvReac HALLUCINATI Verified 10/16/20 20:09 ONS apple AdvReac DIARRHEA, Verified 10/16/20 20:09 VOMITING AND CRAMPING egg AdvReac DIARRHEA, Verified 10/16/20 20:09 VOMITING AND STOMACH CRAMPING meperidine [From Demerol] AdvReac EXCESSIVE Verified 10/16/20 20:09 SEDATION morphine AdvReac HALLUCINATI Verified 10/16/20 20:09 ONS oxycodone [From Percocet] AdvReac HALLUCINATI Verified 10/16/20 20:09 ONS FRYE AdvReac DIARRHEA Uncoded 10/16/20 20:09 PFSH Acute PFSH: Medical History (Updated 10/17/20 @ 05:38 by Lata Salmeron MD) Allergies Asthma Bilateral knee pain Chronic pain syndrome Erectile dysfunction Hypertension Obstructive sleep apnea hypopnea, mild Opioid contract exists Pain in left shoulder Restrictive lung disease due to kyphoscoliosis Right renal stone Substernal goiter Suspected exposure to asbestos Testosterone deficiency Surgical History H/O ankle fusion H/O arthroscopic knee surgery H/O wrist surgery History of appendectomy History of back surgery History of shoulder surgery S/P ureteral stent placement Family History Other CAD (coronary artery disease) Cancer Hypertension Stroke Social History (Updated 10/17/20 @ 05:40 by Lata Salmeron MD) Smoking and tobacco status: former smoker Quit status (tobacco): has quit using tobacco Year quit tobacco: 1975 [id number] Second hand smoke exposure: Yes Alcohol intake: never Adopted: No Caregiver/support person: No Lives independently: Yes Household members: none Housing: House Marital status: / Current occupational status: retired Current gender identity: Male Vitals/I&O/Wt Last Vital Signs Temp 98.7 F 10/16/20 20:23 Pulse 102 H 10/17/20 05:21 Resp 24 H 10/17/20 05:21 BP 116/66 10/17/20 05:21 Pulse Ox 90 10/17/20 05:21 Weight last 48 hrs Weight 136.078 kg Physical Exam Const: OTHER: Alert, oriented x3, cooperative, ill-appearing HENMT: OTHER: Normocephalic atraumatic, dry mucous membranes, oropharynx without any erythema or lesions noted Eye: OTHER: Pupils equally round and reactive to light, anicteric Neck/C-Spine: OTHER: Supple Resp: OTHER: Bibasilar crackles, equal chest expansion, no wheezes noted Cardio: OTHER: Regular rate and rhythm, no murmurs gallops or rubs. 2+ dorsalis pedis and radial pulses. No acrocyanosis. GI: OTHER: Abdomen soft, nontender, nondistended with positive bowel sounds Extremity: NARRATIVE EXTREMITY EXAM: Left foot with no range of motion of the ankle due to prior fusion, range of motion noted to the right foot, no pitting edema, some muscle wasting in the left lower extremity compared to the right Neuro: OTHER: Face symmetric, speech clear, handgrip equal Psych: OTHER: Normal affect, talkative Skin: OTHER: Chronic stasis changes noted left lower extremity more so than right lower extremity Data : 10/16/20 20:12 10/16/20 20:12 Micro: Microbiology 10/16/20 21:34 Blood Culture - Preliminary Blood SPECIMEN COLLECTED 10/16/20 21:34 Blood Culture - Preliminary Blood SPECIMEN COLLECTED A&P Assessment and plan (1) Febrile illness, acute: With associated nausea, vomiting, diarrhea, fever and generalized weakness and malaise. COVID-19 is suspected the rapid Covid antigen was negative. PCR is pending. Mildly tachycardic, afebrile here with normal white count and normal differential. Status: Acute (2) Polycythemia: Looks to have some baseline secondary polycythemia exacerbated by acute illness. He does not have around possibility that polycythemia is the cause of a lot of the symptoms that he is presenting with. Status: Acute (3) Acute kidney injury: Mild, secondary to volume losses Status: Acute (4) Obstructive sleep apnea hypopnea, mild: Recent sleep study indicated CPAP of 12 as a starting point Status: Chronic (5) Restrictive lung disease due to kyphoscoliosis: Follows with Datar Status: Chronic (6) Hypertension: Status: Chronic (7) Chronic pain syndrome: On chronic methadone Status: Chronic Additional A&P Information Elevated BNP Mild elevation of troponin without significant delta Inpatient admission Repeat CBC and BMP after fluid administration Check CRP, CK, procalcitonin, ferritin, fibrinogen, lactic acid, LDH and influenza screen Low volume IV fluids Telemetry monitoring Antiemetics as needed Stool for C. difficile Follow-up PCR Covid test Isolation in the interim Monitor output and renal function Check orthostatics later today Home medications need to be reviewed more specifically but discussed with patient that the majority will be held presently due to low normal blood pressures and ongoing GI symptoms Albuterol inhaler Check echocardiogram to evaluate ejection fraction and right ventricular pressures CPAP with sleep Chronically on methadone for pain control, will resume at a lower dose as blood pressure tolerates Supportive care otherwise Full code Plans discussed with patient and he was given an opportunity to ask questions Attestations Medical Necessity Statement*: Anticipated stay greater than 2 midnights in this patient requiring oxygen therapy and IV fluids at this point in time. Concerns and plans are as noted above. Coding Level of Care Code Acute Senior Accountant Cpa for [facility] Diagnoses Febrile illness, acute R50.9 Polycythemia D75.1 Acute kidney injury N17.9 Obstructive sleep apnea hypopnea, mild G47.33 Restrictive lung disease due to kyphoscoliosis J98.4; M41.9 Hypertension I10 Chronic pain syndrome G89.4
[2020-10-17 06:56] LABS: Basophils % 0.4 %; Eosinophils # 0.2 10^3/uL (0.0-0.8); Eosinophils % 2.4 %; Hematocrit 54.5 % (42.0-52.0); Hemoglobin 17.8 g/dL (11.7-16.6); Lymphocytes # 1.8 10^3/uL (0.8-4.8); Lymphocytes % 18.4 %; Mean Corpuscular HGB Conc 32.7 g/dL (30.0-36.0); Mean Corpuscular Hemoglobin 30.2 pg (28.0-34.0); Mean Corpuscular Volume 92.5 fL (80-94); Mean Platelet Volume 9.6 fL (7.4-10.4); Monocytes # 1.2 10^3/uL (0.2-0.9); Monocytes % 11.9 %; Neutrophils # 6.19 10^3/uL (1.8-7.7); Neutrophils % 64.2 %; Nucleated Red Blood Cells % 0 %; Platelet Count 383 10^3/cmm (130-400); Red Blood Count 5.89 10^6/uL (4.1-5.3); Red Cell Distribution Width 14.5 % (12.1-15.1); White Blood Count 9.6 10^3/uL (4.0-10.0)
[2020-10-17 07:04] LABS: Influenza A by IFA Negative (Negative); Influenza B by IFA Negative (Negative)
[2020-10-17 07:09] LABS: Fibrinogen 464 mg/dL (174-498)
[2020-10-17 07:23] LABS: Procalcitonin 0.14 ng/mL (0-0.5)
[2020-10-17 07:34] LABS: Alanine Aminotransferase 53 U/L (0-41); Alkaline Phosphatase 62 IU/L (40-130); Anion Gap 11.3 (5-19); Aspartate Amino Transferase 33 U/L (0-40); Blood Urea Nitrogen 24 mg/dL (8-23); C Reactive Protein 10.4 mg/L (0.0-4.9); Calcium 8.8 mg/dL (8.5-10.5); Carbon Dioxide 26 mmol/L (22-29); Chloride 103 mmol/L (98-107); Creatine Phosphokinase 93 U/L (39-308); Ferritin 446 ng/mL (30-400); Globulin 3.2 g/dL (1.3-4.6); Glomerular Filtration Rate 84.7 mL/min (90-130); Glucose 146 mg/dL (65-115); Lactate Dehydrogenase 209 U/L (135-225); Osmolality Calculated 291 mOsm/kg (285-295); Potassium 3.3 mmol/L (3.5-5.1); Sodium 137 mmol/L (136-145); Total Bilirubin 0.4 mg/dL (0.15-1.2); Total Protein 6.2 g/dL (6.6-8.7)
--- NOTE | 2020-10-17 07:46 | USCV_ITS ---
Charan Voss Age: 65 Gender: M : 1955 Exam Date: 10/17/2020 11:27 Ordering Phys: Lata Salmeron MD Technologist: Kaylene Lowry Exam Location: [facility] [place] Indication: SOB BP: 105 / 68 HR: 102 Rhythm: Sinus Technical Quality: Very technically difficult study MEASUREMENTS (Male / Female) Normal Values 2D ECHO LV Diastolic Diameter PLAX 3.5 cm 4.2 - 5.9 / 3.9 - 5.3 cm LV Systolic Diameter PLAX 2.0 cm IVS Diastolic Thickness 1.6 cm 0.6 - 1.0 / 0.6 - 0.9 cm IVS Systolic Thickness 1.4 cm LVPW Diastolic Thickness 1.2 cm 0.6 - 1.0 / 0.6 - 0.9 cm LVPW Systolic Thickness 1.4 cm LVOT Diameter 2.1 cm LV Ejection Fraction 2D Teich 75.1 % LA Diameter 3.7 cm Aorta at Sinotubular Diameter 4.5 cm M-MODE LV Diastolic Diameter MM 4.3 cm 4.2 - 5.9 / 3.9 - 5.3 cm LV Systolic Diameter MM 2.0 cm LV Ejection Fraction MM Teich 85.3 % IVS Diastolic Thickness MM 1.5 cm 0.6 - 1.0 / 0.6 - 0.9 cm IVS Systolic Thickness MM 2.3 cm LVPW Diastolic Thickness MM 1.3 cm 0.6 - 1.0 / 0.6 - 0.9 cm LVPW Systolic Thickness MM 2.2 cm Aortic Annulus Diameter 3.6 cm LA Ao Ratio MM 1.1 MV E Point Septal Separation 1.6 cm FINDINGS Left Ventricle Normal left ventricular size and systolic function. This study is inadequate for estimation of regional wall motion normality. Right Ventricle Right ventricle not well visualized. Right Atrium Right atrium not well visualized. Left Atrium Left atrium not well visualized. Mitral Valve Mitral valve not well visualized. Mild mitral annular calcification. Aortic Valve Aortic valve not well visualized. Tricuspid Valve Tricuspid valve not well visualized. Pulmonic Valve Pulmonic valve not well visualized. Pericardium No pericardial effusion. Aorta Aorta not well visualized. CONCLUSIONS 1. This is a technically very difficult study with limited windows. 2. Normal left ventricular size and systolic function. This study is inadequate for estimation of regional wall motion normality. 3. Direct comparison to previous study is not possible given technical differences in study. Yancy Valentin MD (Electronically Signed) Final Date: 17 October 2020 18:53 S
[2020-10-17] MEDS: sodium chlor 0.9% + KCl 20 mEq 20 MEQ/1,000 ML BAG 75 MEQ IV (08:24)
[2020-10-17] MEDS: enoxaparin 40 mg/0.4 mL Syringe SUBCUT (08:24)
[2020-10-17] MEDS: pantoprazole DR 40 mg Tablet PO (08:25)
[2020-10-17] MEDS: aspirin 325 mg EC Tablet PO (08:25)
[2020-10-17] MEDS: fixodent 39 gm Tube 1 APPLIC DENTAL (11:55)
[2020-10-17] MEDS: efferdent effervescent 1 EACH DENTAL (11:56)
--- NOTE | 2020-10-17 17:57 | P.PN_ITS ---
Subjective Subjective: Interval history: He is overall feeling little bit better. States that he has been getting quite dizzy and fatigued when trying to get up and walk even short distances to the restroom. Still fatigued when trying to do so earlier today. No further diarrhea at this time. Breathing states is just about comfortable. Denies headache. No chest pain or pressure. Vitals/I&O/Wt Last Vital Signs Temp 99.6 F 10/17/20 15:22 Pulse 95 10/17/20 15:22 Resp 18 10/17/20 15:22 BP 107/70 10/17/20 15:22 Pulse Ox 90 10/17/20 15:22 10/17/20 10/17/20 10/17/20 06:59 14:59 22:59 Intake Total 360 / 360 Balance 360 / 360 Weight last 48 hrs Weight 136.078 kg Physical Exam Const: COMMON NORMALS: no acute distress and patient oriented x3 HENMT: COMMON NORMALS: oropharynx normal Neck/C-Spine: COMMON NORMALS: no JVD Resp: COMMON NORMALS: normal respiratory effort and clear to auscultation bila terally AUSCULTATION: clear to auscultation bilaterally Cardio: COMMON NORMALS: no JVD, regular rhythm, S1 normal heart sound present, S2 normal heart sound present and No murmurs present (Cardio) RHYTHM: regular rhythm HEART SOUNDS: S1 normal heart sound present and S2 normal heart sound present GI: COMMON NORMALS: Normal to inspection, nondistended, normoactive bowel sounds present, Soft to palpation and non-tender (Minimal tenderness R side abdomen) PALPATION: Yes Soft to palpation Extremity: COMMON NORMALS: no joint enlargement and no pedal edema Neuro: COMMON NORMALS: patient oriented x3 and moves all extremities Skin: COMMON NORMALS: no rashes or lesions noted GENERAL SKIN EXAM: no rashes or lesions noted Data : 10/17/20 06:50 10/17/20 06:50 Micro: Microbiology 10/16/20 21:34 Blood Culture - Preliminary Blood SPECIMEN COLLECTED 10/16/20 21:34 Blood Culture - Preliminary Blood SPECIMEN COLLECTED A&P Assessment and plan (1) Febrile illness, acute: He is feeling little bit better. Quite a bit of his symptoms include fatigue, lightheadedness on getting up and walking. He is orthostatic on blood pressure assessment. Pending PCR COVID-19. D-dimer was minimally elevated at 0.66, although not far from his expected D-dimer corrected for his age. Was noted to be hypoxic on presentation, PO2 58.8, although during my visit states not short of breath, did not have oxygen in place. Later in the day I see again requiring 3 L nasal cannula. Chest x-ray does show increasing consolidation left lower lung consistent with pneumonia. Mild haziness diffusely, possible edema or pneumon itis. No chest pain. Does have moderate troponin elevation. Elevated BNP. Echocardiogram taken. Follow-up result. EKG with atrial fibrillation. Add Levaquin for pneumonia. He reports was having quite a bit of diarrhea as well, although no bowel movement so far since yesterday. Denies abdominal pain. Stool studies ordered, but so far not collected. Follow-up. Status: Acute (2) Polycythemia: Additional follow-up after recovers from acute illness. Status: Acute (3) Acute kidney injury: With improvement. Continue gentle IV fluid challenge. Mild, secondary to volume losses Status: Acute (4) Obstructive sleep apnea hypopnea, mild: Recent sleep study indicated CPAP of 12 as a starting point CPAP with sleep Status: Chronic (5) Restrictive lung disease due to kyphoscoliosis: Follows with pulmonology Status: Chronic (6) Hypertension: Status: Chronic (7) Chronic pain syndrome: On chronic methadone Status: Chronic Additional A&P Information Elevated BNP Mild elevation of troponin without significant delta Attestations Medical Necessity Statement*: Continue admission for assessment of management of pneumonia, hypoxia, possible COVID-19 infection. Coding Level of Care Code Acute Machine Feeder for [facility] Diagnoses Febrile illness, acute R50.9 Polycythemia D75.1 Acute kidney injury N17.9 Obstructive sleep apnea hypopnea, mild G47.33 Restrictive lung disease due to kyphoscoliosis J98.4; M41.9 Hypertension I10 Chronic pain syndrome G89.4
[2020-10-17] MEDS: levofloxacin-dextrose 5 % 750 MG/150 ML PREMIX 100 MG IV (18:24)
[2020-10-17] MEDS: trazodone 100 mg Tablet 200 MG PO (23:38)
[2020-10-17] MEDS: acetaminophen 325 mg Tablet PO (23:38)
[2020-10-17] MEDS: calcium carbonate 500 mg Chew Tablet 1000 MG PO (23:38)
[2020-10-18] VITALS (9 sets, daily range): BP systolic 96–138; BP diastolic 55–84; PULSE 71–110; RESP 17–18; TEMP 37–37.4; O2SAT 90–94; BMI 36.5
[2020-10-18] MEDS: enoxaparin 40 mg/0.4 mL Syringe SUBCUT (05:13)
[2020-10-18 05:56] LABS: Basophils # 0.1 10^3/uL (0.0-0.1); Basophils % 0.7 %; Eosinophils # 0.3 10^3/uL (0.0-0.8); Hematocrit 51.7 % (42.0-52.0); Hemoglobin 16.9 g/dL (11.7-16.6); Lymphocytes # 1.5 10^3/uL (0.8-4.8); Mean Corpuscular HGB Conc 32.7 g/dL (30.0-36.0); Mean Corpuscular Hemoglobin 30.6 pg (28.0-34.0); Mean Corpuscular Volume 93.5 fL (80-94); Mean Platelet Volume 9.7 fL (7.4-10.4); Monocytes % 11.3 %; Neutrophils % 63.2 %; Nucleated Red Blood Cells % 0 %; Platelet Count 355 10^3/cmm (130-400); Red Blood Count 5.53 10^6/uL (4.1-5.3); Red Cell Distribution Width 14.6 % (12.1-15.1); White Blood Count 8.4 10^3/uL (4.0-10.0)
[2020-10-18 06:38] LABS: Alanine Aminotransferase 40 U/L (0-41); Albumin Level 2.8 g/dL (3.5-5.2); Alkaline Phosphatase 52 IU/L (40-130); Anion Gap 13.6 (5-19); Aspartate Amino Transferase 32 U/L (0-40); Blood Urea Nitrogen 15 mg/dL (8-23); Calcium 8.8 mg/dL (8.5-10.5); Carbon Dioxide 25 mmol/L (22-29); Chloride 104 mmol/L (98-107); Glucose 110 mg/dL (65-115); Magnesium 1.9 mg/dL (1.7-2.3); Osmolality Calculated 289 mOsm/kg (285-295); Phosphorus 2.4 mg/dL (2.5-4.5); Potassium 3.6 mmol/L (3.5-5.1); Sodium 139 mmol/L (136-145); Total Bilirubin 0.5 mg/dL (0.15-1.2); Total Protein 5.8 g/dL (6.6-8.7)
[2020-10-18] MEDS: pantoprazole DR 40 mg Tablet PO (08:24)
[2020-10-18] MEDS: aspirin 325 mg EC Tablet PO (08:24)
[2020-10-18] MEDS: acetaminophen 325 mg Tablet PO ×2 (08:24→16:43)
--- NOTE | 2020-10-18 09:12 | PC.CHAP ---
Pastoral Care Encounter/Spiritual Assessment Type of Contact [] Declined greens planter visit [] Patient/Family/Request visit [] Outpatient visit [] Follow-up visit [] Physician referral [] Code/Alert [x] Routine visit [] Staff referral [] Actively dying [] Patient sleeping [] Family support [] [] Out of room [] Palliative care [] [] Receiving care in room [] Pre-surgical visit [] Trauma [] Long length of stay [] ICU visit [] Other: Relational/Emotional Strength [] Patient feels connected with others/family/visitors/staff [] Distress [] Loneliness/isolation [] Abandonment Spirituality of Patient [x] Person of Maryanne [x] Attends Mormonism of their Maryanne [] Believes in Prayer [] Reads Bible or Confucianist materials [] There are Spiritual issues to be addressed Bread Dough Mixer 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 [x] Prayer [x] Active listening [] Non-anxious presence [] Spiritual/emotional support [] Crisis/trauma care [] Spiritual counseling [] Bereavement support [] Provided bereavement packet [x] Provided Bible/devotional materials [] Provided toy/stuffed animal, coloring book to patient or family member [] Provided Communion [] Anointing/[place] [] Salvation [] Completed spiritual assessment [] Other: Impact on Illness or Injury [] Angry [] Fearful [] Anxious [] Often cries [] Exhaustion [] Unable to work [] Unable to attend oriental orthodox [] Unable to walk/stand [] Unable to read [] Unable to drive [] Unable to eat/drink [] Unable to sleep [] Unable to be with family [] Patient intubated [] Other: Summary Time spent with patient 15 min
--- NOTE | 2020-10-18 09:53 | PC.RESP ---
PULMONARY REHAB INFORMATION SENT TO PATIENT.
--- NOTE | 2020-10-18 12:45 | ECG_ITS ---
[facility] Test Date: 2020-10-18 Pat Name: Charan Voss Department: Room: 279 Gender: Male Recordings Librarian: : 1955 Requested By: Gilberto Hernández Order Number: [id number] MD: Yancy Valentin M.D. Measurements Intervals [place] Rate: 135 P: AL: QRS: -8 QRSD: 114 T: 86 QT: 298 QTc: 448 Interpretive Statements ATRIAL FIBRILLATION WITH RAPID VENTRICULAR RESPONSE MODERATE INTRAVENTRICULAR CONDUCTION DELAY [110+ ms QRS DURATION] MINIMAL VOLTAGE CRITERIA FOR LVH, CONSIDER NORMAL VARIANT [MEETS CRITERIA IN ONE OF: R(aVL), S(V1), R(V5), R(V5/V6)+S(V1)] NONSPECIFIC ST & T-WAVE ABNORMALITY Compared to ECG 10/17/2020 02:21:12 Intraventricular conduction delay now present Myocardial infarct finding no longer present Possible ischemia no longer present T-wave abnormality still present Electronically Signed On 10-18-2020 20:21:50 FURNACE HELPER by Yancy Valentin M.D. [id number]
[2020-10-18 13:50] LABS: Thyroid Stimulating Hormone 0.33 uIU/mL (0.27-4.20)
[2020-10-18 15:11] LABS: Coronavirus Test Green County DETECTED
--- NOTE | 2020-10-18 16:16 | PM.PN ---
Subjective Subjective: Interval history: Overall he is doing little bit better. He has been doing well on room air at rest, and did not qualify for external home evaluation. He has had no further diarrhea. Still, however, he has been feeling quite tired especially with exertion. He reports history of transient tachycardia in the past for which she had seen Dr. Orourke. He denies known history of atrial fibrillation in the past. He does state at home usually takes bisoprolol as part of combination with HCTZ which was started by his primary care physician. He denies ever taking a blood thinner medication. He understands increased risks of CVA with atrial fibrillation, however, at this time is concerned about bleeding, and prior to initiation of any anticoagulation would like to further discuss with his primary care provider meanwhile continue on aspirin. Vitals/I&O/Wt Last Vital Signs Temp 99.1 F 10/18/20 15:10 Pulse 107 H 10/18/20 15:10 Resp 18 10/18/20 15:10 BP 114/61 10/18/20 15:10 Pulse Ox 91 10/18/20 15:10 10/18/20 10/18/20 10/18/20 06:59 14:59 22:59 Intake Total 880 / 1480 Output Total 500 / 500 Balance 380 / 980 Weight last 48 hrs Weight 136.078 kg Weight 136.078 kg Physical Exam Const: COMMON NORMALS: no acute distress and patient oriented x3 HENMT: COMMON NORMALS: oropharynx normal Neck/C-Spine: COMMON NORMALS: no JVD Resp: COMMON NORMALS: normal respiratory effort and clear to auscultation bilaterally AUSCULTATION: clear to auscultation bilaterally Cardio: COMMON NORMALS: no JVD, regular rhythm, S1 normal heart sound present, S2 normal heart sound present and No murmurs present (Cardio) RHYTHM: regular rhythm HEART SOUNDS: S1 normal heart sound present and S2 normal heart sound present GI: COMMON NORMALS: Normal to inspection, nondistended, normoactive bowel sounds present, Soft to palpation and non-tender PALPATION: Yes Soft to palpation Extremity: COMMON NORMALS: no joint enlargement and no pedal edema Neuro: COMMON NORMALS: patient oriented x3 and moves all extremities Skin: COMMON NORMALS: no rashes or lesions noted GENERAL SKIN EXAM: no rashes or lesions noted Data : 10/18/20 04:34 10/18/20 04:34 Micro: Microbiology 10/16/20 21:34 Blood Culture - Preliminary Blood NEGATIVE TO DATE 10/16/20 21:34 Blood Culture - Preliminary Blood NEGATIVE TO DATE A&P Assessment and plan (1) Febrile illness, acute: Covid on PCR is detected. Currently not requiring oxygen. If this is to change consider treating for severe COVID 19 PNA. Discussed with him. He was moved out of isolation unit sometime yesterday or overnight. I am not sure why that was done, but it appears information had come from somewhere that his test was negative. Rapid antigen was negative and PCR was negative in June, but PCR result from 10/16 I see is positive. Resume isolation. He agrees to additional monitoring and initiation of treatment in case his symptoms change and he is requiring oxygen. We are continuing treatment started for pneumonia with Levaquin for possible . His oxygenation appears to be doing well. At this time does not qualify for oxygen on 6-minute walk study. Check CRP, DDimer. Lovenox VTE prophylaxis. Diarrhea so far resolved. Status: Acute (2) New onset a-fib: Atrial fibrillation noted on presentation appears to be new to him. He also appears to be quite symptomatic from this as he is still quite fatigued, especially with exertion despite improvement in oxygenation, no symptoms of persistent sepsis, and resolution of diarrhea and orthostatic blood pressure decreasing which was initially noted on presentation. He denies chest pain or pressure. He does have history of tachycardia which he says was identified probably about 10 years ago. Discussed with his registered nurse maternity appears that this was MAT. He himself and his registered nurse maternity are not aware of history of atrial fibrillation. At this time we will continue treatment of pneumonia, we will also resume his bisoprolol given he does get episodes of tachycardia with exertion, however, given new onset A. fib. Appreciate advice from his registered nurse maternity. Status: Acute (3) Polycythemia: Additional follow-up after recovers from acute illness. Status: Acute (4) Acute kidney injury: With improvement. Received IVF. BP a little soft but without significant orthostatic change when measured today. Status: Acute (5) Obstructive sleep apnea hypopnea, mild: Recent sleep study indicated CPAP of 12 as a starting point CPAP with sleep Status: Chronic (6) Restrictive lung disease due to kyphoscoliosis: Follows with pulmonology Status: Chronic (7) Hypertension: Status: Chronic (8) Chronic pain syndrome: On chronic methadone Status: Chronic Additional A&P Information Elevated BNP Mild elevation of troponin without significant delta Attestations Medical Necessity Statement*: Continue admission for assessment management of COVID-19 pneumonia, new atrial fibrillation. Coding Level of Care Code Acute Formula Maker for [facility] Fwd Exam Comprehensive Diagnoses Febrile illness, acute R50.9 New onset a-fib I48.91 Polycythemia D75.1 Acute kidney injury N17.9 Obstructive sleep apnea hypopnea, mild G47.33 Restrictive lung disease due to kyphoscoliosis J98.4; M41.9 Hypertension I10 Chronic pain syndrome G89.4
--- NOTE | 2020-10-18 16:41 | P.CONIM_ITS ---
Providers/Reason For Consult Consulting Physican/Specialty*: Lizzie Orourke MD/cardiology Reason for Consult*: Patient with new onset of atrial fibrillation, symptomatic Attending Physician: Gilberto Hernández Primary Care Provider: Shant Ballesteros MD History of Present Illness History of Present Illness Charan Voss is a 65 year old male, is admitted to hospital with complaints of 2 weeks history of generalized weakness, low-grade fever, diarrhea, abdominal discomfort and shortness of breath. Initially was tested negative for COVID-19. He was found to be in atrial fibrillation with rapid ventricular rate. He has no previous history for atrial fibrillation. He was found to have bilateral pneumonia. Currently he is afebrile. He has been complaining of extreme weakness. The arrhythmia was thought to be the culprit causing the extreme weakness. He denies any chest pain. He had some pleuritic type of pain in the beginning which has improved since then. His shortness of breath also is slowly improving. Currently he is on 2 L of oxygen by nasal cannula. He has been having episodes of palpitations for the last couple of weeks. Every time he gets up and move around, he had a palpitations. Only it is much less. And the heart rate goes up, he gets dizzy. He never had any syncopal episodes. As he gets up and move around, he gets extremely tired and short of breath. Patient walks around with crutches. He had a spinal surgery for his kyphoscoliosis. Postoperatively he developed a foot drop. He wears ankle braces on both sides. He has a history of atypical chest pains. He had a cardiac arrest in 2007 and was found to have no significant obstructive coronary artery disease. 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 He is known to have obstructive sleep apnea, dyslipidemia, hypothyroidism and chronic pain syndrome. Review of Systems Narrative: CONSTITUTIONAL: History of low-grade fever, generalized weakness EYES: No blurring of vision or other visual disturbances lately. ENT: No hoarseness of voice, auditory disturbances or sore throat. CARDIOVASCULAR: As mentioned above. RESPIRATORY: No significant cough. GASTROINTESTINAL: Diarrhea as mentioned above GENITOURINARY: No dysuria or hematuria. INTEGUMENTARY: No skin rashes or history of skin cancer. NEURO: Bilateral foot drop PSYCHIATRIC: No history of psychosis or major depression. HEMATOLOGIC: No bleeding disorders or significant anemia. ENDOCRINE: No history of polyuria or polydipsia. MUSCULOSKELETAL: Kyphoscoliosis and extensive spinal surgery ALLERGY/IMMUNOLOGY: As mentioned above. Meds/Allergies Home Medications and Allergies Home Medications Medication Instructions Recorded Confirmed Last Taken Type allopurinol 300 mg tablet 300 mg PO DAILY@0 10/15/19 10/17/20 10/16/20 History bisoprolol 10 1 tab PO DAILY@219910/15/19 10/17/20 10/16/20 History mg-hydrochlorothiazide 6.25 mg tablet folic acid 1 mg tablet 1 mg PO DAILY@219910/15/19 10/17/20 10/16/20 History lovastatin 40 mg tablet 40 mg PO DAILY@2200 tab 10/15/19 10/17/20 10/16/20 History multivitamin 1 tab PO DAILY@219910/15/19 10/17/20 10/16/20 History trazodone 300 mg tablet 300 mg PO BEDTIME@2200 tab 10/15/19 10/17/20 10/16/20 History albuterol sulfate [Ventolin HFA] 2 puff INHALATION Q4H PRN 10/27/19 10/17/20 Unknown History ascorbic acid (vitamin C) [Vitamin 1,000 mg PO DAILY@219910/27/19 10/17/20 10/16/20 History C] aspirin 325 mg PO DAILY@219910/27/19 10/17/20 10/16/20 History docusate sodium [Colace] 100 mg PO DAILY PRN 10/27/19 10/17/20 10/26/19 History loratadine [Claritin] 10 mg PO DAILY@219910/27/19 10/17/20 10/16/20 History sennosides [senna] 8.6 mg PO DAILY PRN 10/27/19 10/17/20 10/26/19 History vitamin E 1,000 unit PO DAILY@219910/27/19 10/17/20 10/16/20 History triamcinolone acetonide 1 applic TOPICAL BID #30 gm 05/25/20 10/17/20 Unknown Rx hydrocodone 10 mg-acetaminophen 1 tab PO QID 30 Days #120 tab 06/22/20 10/18/20 10/14/20 Rx 325 mg tablet testosterone cypionate 200 mg/mL 200 mg IM .EVERY 10 DAYS #10 ml 08/11/20 10/17/20 Unknown Rx intramuscular oil Symbicort 2 puff INHALATION BID@10,22 10/17/20 10/17/20 10/16/20 History bisoprolol fumarate 10 mg PO DAILY #7 tab 10/19/20 Unknown Rx diltiazem HCl 30 mg PO TID #90 tab 10/19/20 Unknown Rx Allergies Allergy/AdvReac Type Severity Reaction Status Date / Time oats Allergy DIARRHEA Verified 10/16/20 20:09 caffeine AdvReac Unknown PALPITATION Verified 10/16/20 20:09 S apple AdvReac DIARRHEA, Verified 10/16/20 20:09 VOMITING AND CRAMPING egg AdvReac DIARRHEA, Verified 10/16/20 20:09 VOMITING AND STOMACH CRAMPING meperidine [From Demerol] AdvReac EXCESSIVE Verified 10/16/20 20:09 SEDATION morphine AdvReac HALLUCINATI Verified 10/16/20 20:09 ONS FRYE AdvReac DIARRHEA Uncoded 10/16/20 20:09 Current Medications Current Medications Generic Name Dose Route Start Last Admin Trade Name Freq PRN Reason Stop Dose Admin Acetaminophen 325 - 650 mg 10/17/20 23:08 10/18/20 08:24 Acetaminophen 325 Mg Tablet PO 650 mg Q4H PRN Administration MILD PAIN OR INCREASE TEMP Aspirin 325 mg 10/17/20 09:00 10/18/20 08:24 Aspirin 325 Mg Ec Tablet PO 325 mg DAILY SOFIA Administration Calcium Carbonate 1,000 mg 10/17/20 05:42 10/17/20 23:38 Calcium Carbonate 500 Mg Chew Tablet PO 1,000 mg Q4H PRN Administration DYSPEPSI Denture Adhesive 1 applic 10/17/20 11:41 10/17/20 11:55 Fixodent 39 Gm Tube DENTAL 1 tube PRN PRN Administration denture adhesive Enoxaparin Sodium 40 mg 10/17/20 06:00 10/18/20 05:13 Enoxaparin 40 Mg/0.4 Ml Syringe SUBCUT 40 mg Q24H SOFIA Administration Levofloxacin/Dextrose 750 mg in 150 mls @ 100 mls/hr 10/17/20 18:15 10/17/20 18:24 Levaquin-D5w IV 100 mls/hr Q24H SOFIA Administration Protocol Methadone HCl 10 mg 10/17/20 07:46 10/18/20 08:25 Methadone 10 Mg Tablet PO Not Given Q8H SOFIA Pantoprazole Sodium 40 mg 10/17/20 09:00 10/18/20 08:[address] 40 Mg Tablet PO 40 mg DAILY SOFIA Administration Trazodone HCl 200 mg 10/17/20 23:00 10/17/20 23:38 Trazodone 100 Mg Tablet PO 200 mg BEDTIME@2200 SOFIA Administration PFSH Acute PFSH: Medical History Allergies Asthma Bilateral knee pain Chronic pain syndrome Erectile dysfunction Hypertension Obstructive sleep apnea hypopnea, mild Opioid contract exists Pain in left shoulder Restrictive lung disease due to kyphoscoliosis Right renal stone Substernal goiter Suspected exposure to asbestos Testosterone deficiency Surgical History H/O ankle fusion H/O arthroscopic knee surgery H/O wrist surgery History of appendectomy History of back surgery History of shoulder surgery S/P ureteral stent placement Family History Other CAD (coronary artery disease) Cancer Hypertension Stroke Social History Smoking and tobacco status: former smoker Quit status (tobacco): has quit using tobacco Year quit tobacco: 1975 [id number] Second hand smoke exposure: Yes Alcohol intake: never Adopted: No Caregiver/support person: No Lives independently: Yes Household members: none Housing: House Marital status: / Current occupational status: retired Current gender identity: Male Vitals/I&O/Wt Last Vital Signs Temp 99.1 F 10/18/20 15:10 Pulse 107 H 10/18/20 15:10 Resp 18 10/18/20 15:10 BP 114/61 10/18/20 15:10 Pulse Ox 91 10/18/20 15:10 10/18/20 10/18/20 10/18/20 06:59 14:59 22:59 Intake Total 880 / 1480 Output Total 500 / 500 Balance 380 / 980 Weight last 48 hrs Weight 300 lb Weight 300 lb Physical Exam Narrative: EXAM NARRATIVE: GENERAL: The patient is alert and oriented times three. Not in any acute distress. HEENT: No significant pallor, icterus or lymphadenopathy. The pupils are symmetrical. Oral cavity: There are no mucous membrane lesions. Funduscopic examination: The fundus is not visualized NECK: Trachea appears to be central. No masses noted. No JVD or thyromegaly appreciated. No carotid bruit. RESPIRATORY: Chest is symmetrical. No intercostals muscle retraction or any accessory muscle activation. There is no chest wall tenderness. Breath sounds are heard bilaterally. Few coarse rales in the bases BREASTS: Deferred. HEART: The first heart sound is variable. Second heart sound is normal. No S3. No severe murmurs. ABDOMEN: Bowel sounds are normal. No abdominal distention. No tenderness. : Deferred. RECTAL: Deferred. LYMPHATIC: No lymphadenopathy noted in the neck. EXTREMITIES: No edema or cyanosis. Bilateral ankle braces MUSCULOSKELETAL: No acute joint deformities or swelling SKIN: There are no significant scars or skin rash noted. NEUROPSYCHIATRIC: The patient is alert and oriented x3. Appears to be in a good mood. The higher functions are grossly within normal limits. No tremors or rig idity noted. Data Micro: Micro: Microbiology 10/16/20 21:34 Blood Culture - Pr eliminary Blood NEGATIVE TO ALAINA E 10/16/20 21:34 Blood Culture - Pr eliminary Blood NEGATIVE TO ALAINA E Imaging^: CT Chest: Radiologist's impression: 1. No pleural plaque or pneumonia. 2. Minimal scarring and pleural thickening at the LEFT lung base. 3. Mild pulmonary hypertension. 4. Substernal LEFT goiter. Echo: My impression: Possibly normal LV size and ejection fraction. No gross wall motion normalities noted. EKG^: EKG 1: My Interpretation: EKG shows atrial fibrillation with rapid ventricular rate. Nonspecific IVCD. Minimal voltage criteria for LVH. Left axis deviation. Nonspecific ST-T changes. A&P Assessment and plan (1) New onset a-fib: Patient appears to have atrial fibrillation with intermittent rapid ventricular rate. Hemodynamically he seems to be stable. Currently it is not clear whether the arrhythmia is causing the generalized weakness or not. Most likely the COVID-19 infection could be the culprit. At this point, we may focus on rate control. I will keep the patient on telemetry. I may start him on diltiazem 30 mg p.o. every 8 hours. [id number] Score is 1. Continue on the aspirin for the time being. Telemetry the patient has no history for diabetes or heart failure. His echocardiogram was reviewed. The LV ejection fraction appears to be within normal limits. Status: Acute (2) Obstructive sleep apnea hypopnea, mild: Continue on the CPAP. (3) Febrile illness, acute: Management as per the primary Status: Resolved (4) COVID-19 determined by clinical diagnostic criteria: Patient is in the process of being transferred back to the isolation unit. Discussed with Dr. Hagen. We will repeat the D-dimer in the morning. If there is a significant elevation, consider anticoagulation. May continue with subcu Lovenox for DVT plexus Status: Acute Consult Attestations Medical Necessity Statement: Patient requires continued hospital stay for close monitoring and further management Coding Level of Care Code Acute Machine Plate Stacker for [place] Fwadrien History Detailed Exam Detailed Medical Decision Making Moderate Complexity Diagnoses New onset a-fib I48.91 Obstructive sleep apnea hypopnea, mild G47.33 Febrile illness, acute R50.9 COVID-19 determined by clinical diagnostic criteria U07.1 Time Spent (min) 60
[2020-10-18 20:14] LABS: C Reactive Protein 5.3 mg/L (0.0-4.9)
[2020-10-18] MEDS: levofloxacin-dextrose 5 % 750 MG/150 ML PREMIX 100 MG IV (21:30)
[2020-10-18] MEDS: atorvastatin 40 mg Tablet 20 MG PO (23:32)
[2020-10-18] MEDS: allopurinol 300 mg Tablet PO (23:32)
[2020-10-18] MEDS: folic acid 1 mg Tablet PO (23:33)
[2020-10-18] MEDS: loratadine 10 mg Tablet PO (23:33)
[2020-10-18] MEDS: trazodone 100 mg Tablet 200 MG PO (23:34)
[2020-10-18] MEDS: aspirin 325 mg Tablet PO (23:35)
[2020-10-18] MEDS: dilTIAZem 30 mg Tablet PO (23:35)
[2020-10-19] VITALS (12 sets, daily range): BP systolic 120–145; BP diastolic 65–81; PULSE 72–100; RESP 16–29; TEMP 36.7–37.1; O2SAT 92–97
[2020-10-19 02:02] LABS: D Dimer 0.55 ug/mIFEU (0-0.59)
[2020-10-19 04:22] LABS: Basophils # 0.1 10^3/uL (0.0-0.1); Basophils % 0.7 %; Eosinophils # 0.2 10^3/uL (0.0-0.8); Eosinophils % 2.4 %; Hematocrit 51.8 % (42.0-52.0); Hemoglobin 16.7 g/dL (11.7-16.6); Lymphocytes # 1.6 10^3/uL (0.8-4.8); Lymphocytes % 19.3 %; Mean Corpuscular HGB Conc 32.2 g/dL (30.0-36.0); Mean Corpuscular Hemoglobin 30.4 pg (28.0-34.0); Mean Corpuscular Volume 94.2 fL (80-94); Mean Platelet Volume 9.7 fL (7.4-10.4); Monocytes # 0.9 10^3/uL (0.2-0.9); Monocytes % 11.2 %; Neutrophils % 62.3 %; Nucleated Red Blood Cells % 0 %; Platelet Count 345 10^3/cmm (130-400); Red Cell Distribution Width 14.4 % (12.1-15.1); White Blood Count 8.2 10^3/uL (4.0-10.0)
[2020-10-19 04:34] LABS: D Dimer 0.64 ug/mIFEU (0-0.59)
[2020-10-19 04:53] LABS: Alanine Aminotransferase 36 U/L (0-41); Alkaline Phosphatase 54 IU/L (40-130); Anion Gap 10.8 (5-19); Aspartate Amino Transferase 19 U/L (0-40); Blood Urea Nitrogen 13 mg/dL (8-23); Calcium 9.1 mg/dL (8.5-10.5); Carbon Dioxide 29 mmol/L (22-29); Chloride 103 mmol/L (98-107); Globulin 2.9 g/dL (1.3-4.6); Glucose 102 mg/dL (65-115); Osmolality Calculated 288 mOsm/kg (285-295); Potassium 3.8 mmol/L (3.5-5.1); Sodium 139 mmol/L (136-145); Total Bilirubin 0.4 mg/dL (0.15-1.2); Total Protein 5.9 g/dL (6.6-8.7)
[2020-10-19 04:59] LABS: C Reactive Protein 5.3 mg/L (0.0-4.9)
[2020-10-19] MEDS: enoxaparin 40 mg/0.4 mL Syringe SUBCUT (05:25)
[2020-10-19] MEDS: pantoprazole DR 40 mg Tablet PO (08:42)
[2020-10-19] MEDS: dilTIAZem 30 mg Tablet PO (08:42)
[2020-10-19] MEDS: albuterol 8 gm MDI 2 PUFF INHALATION (08:57)
[2020-10-19] MEDS: HYDROcodone-acetaminophen 10-325 mg Tablet 1 TAB PO (11:50)
--- NOTE | 2020-10-19 13:41 | PC.CHAP ---
Pastoral Care Encounter/Spiritual Assessment Type of Contact [] Declined purification director visit [] Patient/Family/Request visit [] Outpatient visit [] Follow-up visit [] Physician referral [] Code/Alert [] Routine visit [] Staff referral [] Actively dying [] Patient sleeping [] Family support [] [] Out of room [] Palliative care [] [] Receiving care in room [] Pre-surgical visit [] Trauma [] Long length of stay [] ICU visit [x] Other: Unit 2A Relational/Emotional Strength [x] Patient feels connected with others/family/visitors/staff [] Distress [] Loneliness/isolation [] Abandonment Spirituality of Patient [x] Person of Maryanne [x] Attends Oriental [employer] of their Maryanne [x] Believes in Prayer [x] Reads Bible or Spiritism materials [] There are Spiritual issues to be addressed Senior Sales Representative 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 [x] Prayer [x] Active listening [x] Non-anxious presence [x] Spiritual/emotional support [] Crisis/trauma care [] Spiritual counseling [] Bereavement support [] Provided bereavement packet [] Provided Bible/devotional materials [] Provided toy/stuffed animal, coloring book to patient or family member [] Provided Communion [] Anointing/[place] [] Salvation [x] Completed spiritual assessment [] Other: Impact on Illness or Injury [] Angry [] Fearful [] Anxious [] Often cries [] Exhaustion [] Unable to work [] Unable to attend christian [] Unable to walk/stand [] Unable to read [] Unable to drive [] Unable to eat/drink [] Unable to sleep [] Unable to be with family [] Patient intubated [] Other: Patient has become very weak, however is now eating and is gaining strength. Summary Senior Sales Representative when to store and purchased items of clothing patient was in need of. Delivered items to patient and prayer. Listen to patients story of illness. Inquired of any other needs, none at this time. Time spent with patient 15 min
--- NOTE | 2020-10-19 15:02 | PM.DCS ---
Discharge Providers Date of Admission: 10/17/20 05:53 Date of Discharge: October 19, 2020 Attending Provider at Admission: Lata Salmeron MD Attending Provider at Discharge: Gilberto Hernández Primary Care Provider: Shant Ballesteros MD Diagnoses at Discharge Discharge Diagnosis (1) New onset a-fib: Status: Acute (2) Obstructive sleep apnea hypopnea, mild: Status: Chronic (3) Febrile illness, acute: Status: Acute (4) COVID-19 determined by clinical diagnostic criteria: Status: Acute (5) Polycythemia: Status: Acute (6) Acute kidney injury: Status: Acute (7) Restrictive lung disease due to kyphoscoliosis: Status: Chronic (8) Thyroid nodule: Status: Acute (9) Testosterone deficiency: Status: Chronic (10) Chronic pain syndrome: Status: Chronic Reason for Visit Reason for Visit: WEAKNESS Hospital Course Hospital Course Pleasant 65 gentleman was admitted after presenting due to several weeks worth of malaise, generalized weakness, fatigability, low-grade fevers, as well as nausea, multiple episodes of diarrhea. He felt especially fatigued with walking. [place] dizzy when standing up from seated position. As his symptoms had progressed to the point of difficulty of caring for himself he came to the hospital. Initially noted decreased oxygen saturation in upper 80s to low 90s, did well with 2 L oxygen nasal cannula. With noted increasing consolidation left lower lung field consistent with pneumonia and/or atelectasis was started on Levaquin. On presentation also noted mild acute kidney injury which subsequently resolved. He was continued on CPAP for sleep apnea. Also noted underlying restrictive lung disease for which he follows with pulmonology on outpatient basis. On presentation also noted atrial fibrillation on EKG which is new for him. Troponin with mild elevation 31-22.51-26.17. No chest pain. Elevation suspected secondary to new arrhythmia. He has had a stress test in May 2019 with finding of patchy areas of persistent decreased tracer uptake in anterior wall and inferior wall and apical regions, most likely representing attenuation artifact, normal ejection fraction 56%. New atrial fibrillation attributed to most likely pulmonary infection. Initial testing also included rapid influenza and COVID-19 antigens which were negative. Subsequently COVID-19 PCR positive noted on 10/18, by which point he no longer required any supplemental oxygen. Other tests included TSH which was noted normal at 0.33. Of note he had recently underwent biopsy of substernal goiter with noted changes consistent with benign follicular nodule on pathology. Of note he is also seen to have elevated hemoglobin hematocrit on presentation initially as high as 20.2. Subsequently with IV hydration due to dehydration with diarrhea, orthostatic symptoms, acute kidney injury being additional manifestations, likely hemoconcentration had improved, but polycythemia still persists with minimal hemoglobin elevation 16.7. He is chronically on testosterone, and as discussed with him he will be discussing this further with primary care at the next appointment to adjust dosing and follow-up on polycythemia. On presentation also noted minimal AST and ALT elevation, AST 47, ALT 65, which have resolved. His diarrhea had resolved. Noted minimally elevated D-dimer, 0.66-0.55-0.64 which is normal for his age. He is continued on aspirin 325 mg during hospitalization for medication of stroke risk with atrial fibrillation. Additional treatment with anticoagulation was discussed with him, however, he prefers to first discuss further with his primary care provider. He understands the risks, but is also concerned about the risk of bleeding. Additionally noted mildly low phosphorus level at 2.4. He is encouraged to add dairy products to his diet. Please follow-up. With initially persistent fatigue, consideration was given to possibly symptomatic atrial fibrillation causing his symptoms. His heart rates for the most part were controlled with bisoprolol, however, with tachycardia with exertion, but he did better after initiation of additional Cardizem 30 mg p.o. 3 times daily after he was evaluated by cardiology. Today he is feeling considerably better. We discussed with him additional options with regards to COVID-19 treatment. He initially did require oxygen, however, this has rapidly improved, and today he in fact feels much better. He is still having fatigue, but this is improving. He tolerates activity better. There is no further diarrhea. He remains afebrile. He did not qualify for oxygen on home evaluation on 10/18. We are repeating this study prior to discharge today to reassess. He understands that in case he were to require oxygen he then may benefit from additional treatment for COVID-19, possibly with remdesivir, Decadron, and other therapies. Since he has been doing much better, at this time he will be returning home, but he understands to keep very low threshold for additional reassessment, as we had a detailed discussion with him and with his daughter present on conference call, regarding noted deterioration in some cases in patients with COVID-19 despite initial improvement. He states he will keep very low threshold for additional reassessment in case of any concerning symptoms. On discharge for now his combination bisoprolol-HCTZ is held, with bisoprolol and continued for about a week to avoid additional dehydration. If there is no further recurrence of diarrhea, he continues to tolerate oral intake well, likely his usual medication at that point can be resumed. 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 Cardioversion may still be consideration in case there is lack of improvement of symptoms despite recovery from pneumonia and COVID-19, in which case his symptoms may be secondary to atrial fibrillation, although his progress so far has been encouraging. 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 Physical Exam Const: COMMON NORMALS: no acute distress and patient oriented x3 HENMT: COMMON NORMALS: oropharynx normal Neck/C-Spine: COMMON NORMALS: no JVD Resp: COMMON NORMALS: normal respiratory effort and clear to auscultation bilaterally AUSCULTATION: clear to auscultation bilaterally Cardio: COMMON NORMALS: no JVD, S1 normal heart sound present, S2 normal heart sound present and No murmurs present (Cardio) RHYTHM: abnormal rhythm irregularly irregular HEART SOUNDS: S1 normal heart sound present and S2 normal heart sound present GI: COMMON NORMALS: Normal to inspection, nondistended, normoactive bowel sounds present, Soft to palpation and non-tender PALPATION: Yes Soft to palpation Extremity: COMMON NORMALS: no joint enlargement and no pedal edema Neuro: COMMON NORMALS: patient oriented x3 and moves all extremities Skin: COMMON NORMALS: no rashes or lesions noted GENERAL SKIN EXAM: no rashes or lesions noted Discharge Data Data Completed and Pending: Completed Studies During Hospitalization Category Date Time Status XR chest 1V poly ble 67010 Urgent Exams 10/16/20 20:28 [place] [address]/25 Routin e Ultrasound 10/17/20 07:46 Completed Pending at discharge Category Date Time Status Blood Culture Sta t Lab 10/16/20 21:34 Results Clostridioides Di fficile PCR Routin e Lab 10/17/20 07:04 Ordered Complete Blood Co unt w/Auto AM LABS Lab 10/20/20 04:00 Ordered Complete Blood Co unt w/Auto AM LABS Lab 10/21/20 04:00 Ordered Comprehensive Met abolic Panel AM LA BS Lab 10/20/20 04:00 Ordered Comprehensive Met abolic Panel AM LA BS Lab 10/21/20 04:00 Ordered Lactoferrin Routi ne Lab 10/17/20 07:04 Ordered Labs from last 24 hours 10/19/20 10/19/20 10/19/20 03:42 03:42 03:42 WBC 8.2 RBC 5.50 H Hgb 16.7 H Hct 51.8 MCV 94.2 H MCH 30.4 MCHC 32.2 RDW 14.4 Plt Count 345 MPV 9.7 Neut % (Auto) 62.3 Lymph % (Auto) 19.3 Brule % (Auto) 11.2 Eos % (Auto) 2.4 Baso % (Auto) 0.7 Neut # (Auto) 5.10 Lymph # (Auto) 1.6 Brule # (Auto) 0.9 Eos # (Auto) 0.2 Baso # (Auto) 0.1 Nucleated RBC % (a uto) 0 Nucleated RBCs # 0.0 D-Dimer 0.64 H Sodium 139 Potassium 3.8 Chloride 103 Carbon Dioxide 29 Anion Gap 10.8 BUN 13 Creatinine 0.8 GFR Calculation 97.0 Glucose 102 Calculated Osmolal ity 288 Calcium 9.1 Total Bilirubin 0.4 AST 19 ALT 36 Alkaline Phosphata se 54 C-Reactive Protein Total Protein 5.9 L Albumin 3.0 L Globulin 2.9 Nasal/Oral COVID-1 9 PCR 10/19/20 10/18/20 10/18/20 03:42 04:54 00:56 WBC RBC Hgb Hct MCV MCH MCHC RDW Plt Count MPV Neut % (Auto) Lymph % (Auto) Brule % (Auto) Eos % (Auto) Baso % (Auto) Neut # (Auto) Lymph # (Auto) Brule # (Auto) Eos # (Auto) Baso # (Auto) Nucleated RBC % (a uto) Nucleated RBCs # D-Dimer 0.55 Sodium Potassium Chloride Carbon Dioxide Anion Gap BUN Creatinine GFR Calculation Glucose Calculated Osmolal ity Calcium Total Bilirubin AST ALT Alkaline Phosphata se C-Reactive Protein 5.3 H 5.3 H Total Protein Albumin Globulin Nasal/Oral COVID-1 9 PCR 10/16/20 20:12 WBC RBC Hgb Hct MCV MCH MCHC RDW Plt Count MPV Neut % (Auto) Lymph % (Auto) Brule % (Auto) Eos % (Auto) Baso % (Auto) Neut # (Auto) Lymph # (Auto) Brule # (Auto) Eos # (Auto) Baso # (Auto) Nucleated RBC % (a uto) Nucleated RBCs # D-Dimer Sodium Potassium Chloride Carbon Dioxide Anion Gap BUN Creatinine GFR Calculation Glucose Calculated Osmolal ity Calcium Total Bilirubin AST ALT Alkaline Phosphata se C-Reactive Protein Total Protein Albumin Globulin Nasal/Oral COVID-1 9 PCR Detected H Vitals: Last Vital Signs Temp 98.8 F 10/19/20 07:05 Pulse 83 10/19/20 12:00 Resp 18 10/19/20 08:54 BP 145/81 10/19/20 07:05 Pulse Ox 93 10/19/20 14:39 Discharge Plan Discharge Patient Disposition: Home Condition: Stable Prescriptions: New diltiazem HCl 30 mg Tablet 30 mg PO TID Qty: 90 RF: 0 levofloxacin 750 mg tablet 750 mg PO DAILY 4 Days Qty: 4 RF: 0 bisoprolol fumarate 5 mg Tablet 10 mg PO DAILY Qty: 7 RF: 0 Continued trazodone 300 mg tablet 300 mg PO BEDTIME@2199 RF: 0 lovastatin 40 mg tablet 40 mg PO DAILY@2199 RF: 0 allopurinol 300 mg tablet 300 mg PO DAILY@2199 RF: 0 folic acid 1 mg tablet 1 mg PO DAILY@2199 RF: 0 multivitamin Tablet 1 tab PO DAILY@2199 RF: 0 hydrocodone-acetaminophen 10-325 mg tablet 1 tab PO QID 30 Days Qty: 120 RF: 0 testosterone cypionate 200 mg/mL oil 200 mg IM .EVERY 10 DAYS Qty: 10 RF: 5 Symbicort 80-4.5 mcg/actuation HFA aerosol inhaler 2 puff INHALATION BID@ RF: 0 vitamin E 1,000 unit Capsule 1,000 unit PO DAILY@2199 RF: 0 sennosides [senna] 8.6 mg Tablet 8.6 mg PO DAILY PRN (Reason: Constipation) RF: 0 ascorbic acid (vitamin C) [Vitamin C] 1,000 mg Tablet 1,000 mg PO DAILY@2200 RF: 0 aspirin 325 mg Tablet 325 mg PO DAILY@2199 RF: 0 docusate sodium [Colace] 100 mg Capsule 100 mg PO DAILY PRN (Reason: Constipation) RF: 0 albuterol sulfate [Ventolin HFA] 90 mcg/actuation Hfa Aerosol Inhaler 2 puff INHALATION Q4H PRN (Reason: Shortness Of Breath) RF: 0 loratadine [Claritin] 10 mg Tablet 10 mg PO DAILY@2199 RF: 0 triamcinolone acetonide 0.1 % ointment 1 applic TOPICAL BID Qty: 30 RF: 0 Held bisoprolol-hydrochlorothiazide 10-6.25 mg tablet 1 tab PO DAILY@2199 RF: 0 Hold Instructions: Resume on 10/26/20. Discharge Orders: Discharge Order (Routine); Ordered 10/19/20 Ordered By: Gilberto Hernández Referrals: Raiza Orourke MD [Physician] - 1 month Shant Ballesteros MD [Primary Care Provider] - 2 weeks (Please set up telehealth visit within 72 hours for follow-up if possible. Otherwise please follow-up within 2 weeks after your isolation is discontinued or as otherwise directed by your primary care doctor.) Discharge Diet: Advance as tolerated and Cardiac Discharge Activity: Increase activity as tolerated Patient Instructions: Diltiazem (By mouth), Atrial Fibrillation (GEN) Activity Restrictions/Additional Instructions: Please maintain isolation until October 30, then if you have no fever for at least 24 hours, no other symptoms including nausea vomiting diarrhea, severe fatigue, headache, and any improving cough for least 5 or hours, isolation may be discontinued. Please keep low threshold for additional medical evaluation in case of any change or worsening her symptoms, including any worsening shortness of breath, if you notice any fast breathing, any extreme fatigue, any fainting or near fainting symptoms, any blue discoloration of fingers, lips, any chest pain or pressure, or any other concerning symptoms, please seek medical attention without delay. Please monitor your heart rate and blood pressure at home, record values at least twice daily to bring to your appointment. Please note that in addition to bisoprolol you are started on Cardizem (diltiazem) to help control heart rates due to atrial fibrillation. If you experience very high rates that are persistent, despite taking a rest, and despite taking her medications, please get in touch with your primary care doctor or Dr. Orourke. 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 To avoid dehydration for now please hold the combination medication bisoprolol-HCTZ, instead taking bisoprolol alone over the next week. If there is no further diarrhea, no risk of dehydration, you may resume your usual blood pressure medication unless told otherwise by your primary care doctor. Please complete antibiotic course for possible additional bacterial pneumonia superimposed on coronavirus pneumonia. Continue CPAP nightly with sleep for sleep apnea. Please discuss with your primary care doctor regarding elevated red blood cell count, to follow that up, as well as adjust testosterone dosing. Please avoid any NSAIDs like ibuprofen, Aleve, due to mild kidney injury noted on presentation which so far has since resolved. Please include dairy if you are able to for additional phosphorus supplementation. Your phosphorus level was mildly low noted in the hospital. Discuss with your primary care doctor for follow-up. Please continue follow-up with your clinical phlebotomist regarding restrictive lung disease. Discharge Attestations Time Spent in Discharge Care*: greater than 30 min Quality Metrics Clinical Quality Measures During this hospital stay, did patient experience: None Coding Level of Care Code Acute Card Hand for Chg Fwd Diagnoses New onset a-fib I48.91 Obstructive sleep apnea hypopnea, mild G47.33 Febrile illness, acute R50.9 COVID-19 determined by clinical diagnostic criteria U07.1 Polycythemia D75.1 Acute kidney injury N17.9 Restrictive lung disease due to kyphoscoliosis J98.4; M41.9 Thyroid nodule E04.1 Testosterone deficiency E34.9 Chronic pain syndrome G89.4
--- NOTE | 2020-10-20 18:59 | P.DS_ITS ---
Discharge Providers Date of Admission: 10/17/20 05:53 Date of Discharge: October 20, 2020 Attending Provider at Admission: Lata Salmeron MD Attending Provider at Discharge: Gilberto Hernández Primary Care Provider: Shant Ballesteros MD Diagnoses at Discharge Discharge Diagnosis (1) New onset a-fib: Status: Acute (2) Obstructive sleep apnea hypopnea, mild: (3) Febrile illness, acute: Status: Resolved (4) COVID-19 determined by clinical diagnostic criteria: Status: Acute (5) Polycythemia: Status: Acute (6) Acute kidney injury: Status: Resolved (7) Restrictive lung disease due to kyphoscoliosis: (8) Thyroid nodule: Status: Acute (9) Testosterone deficiency: Status: Chronic (10) Chronic pain syndrome: Reason for Visit Reason for Visit: WEAKNESS Hospital Course Hospital Course Pleasant 65 gentleman was admitted after presenting due to several weeks worth of malaise, generalized weakness, fatigability, low-grade fevers, as well as nausea, multiple episodes of diarrhea. He felt especially fatigued with walking. [place] dizzy when standing up from seated position. As his symptoms had progressed to the point of difficulty of caring for himself he came to the hospital. Initially noted decreased oxygen saturation in upper 80s to low 90s, did well with 2 L oxygen nasal cannula. With noted increasing consolidation left lower lung field consistent with pneumonia and/or atelectasis was started on Levaquin. On presentation also noted mild acute kidney injury which subsequently resolved. He was continued on CPAP for sleep apnea. Also noted underlying restrictive lung disease for which he follows with pulmonology on outpatient basis. On presentation also noted atrial fibrillation on EKG which is new for him. Troponin with mild elevation 31-22.51-26.17. No chest pain. Elevation suspected secondary to new arrhythmia. He has had a stress test in May 2019 with finding of patchy areas of persistent decreased tracer uptake in anterior wall and inferior wall and apical regions, most likely representing attenuation artifact, normal ejection fraction 56%. New atrial fibrillation attributed to most likely pulmonary infection. Initial testing also included rapid influenza and COVID-19 antigens which were negative. Subsequently COVID-19 PCR positive noted on 10/18, by which point he no longer required any supplemental oxygen. Other tests included TSH which was noted n ormal at 0.33. Of note he had recently underwent biopsy of substernal goiter with noted changes consistent with benign follicular nodule on pathology. Of note he is also seen to have elevated hemoglobin hematocrit on presentation initially as high as 20.2. Subsequently with IV hydration due to dehydration with diarrhea, orthostatic symptoms, acute kidney injury being additional manifestations, likely hemoconcentration had improved, but polycythemia still persists with minimal hemoglobin elevation 16.7. He is chronically on testosterone, and as discussed with him he will be discussing this further with primary care at the next appointment to adjust dosing and follow-up on polycythemia. On presentation also noted minimal AST and ALT elevation, AST 47, ALT 65, which have resolved. His diarrhea had resolved. Noted minimally elevated D-dimer, 0.66-0.55-0.64 which is normal for his age. He is continued on aspirin 325 mg during hospitalization for medication of stroke risk with atrial fibrillation. Additional treatment with anticoagulation was discussed with him, however, he prefers to first discuss further with his primary care provider. He understands the risks, but is also concerned about the risk of bleeding. Additionally noted mildly low phosphorus level at 2.4. He is encouraged to add dairy products to his diet. Please follow-up. With initially persistent fatigue, consideration was given to possibly symptomatic atrial fibrillation causing his symptoms. His heart rates for the most part were controlled with bisoprolol, however, with tachycardia with exertion, but he did better after initiation of additional Cardizem 30 mg p.o. 3 times daily after he was evaluated by cardiology. Today he is feeling considerably better. We discussed with him additional options with regards to COVID-19 treatment. He initially did require oxygen, however, this has rapidly improved, and today he in fact feels much better. He is still having fatigue, but this is improving. He tolerates activity better. There is no further diarrhea. He remains afebrile. He did not qualify for oxygen on home evaluation on 10/18. We are repeating this study prior to discharge today to reassess. He understands that in case he were to require oxygen he then may benefit from additional treatment for COVID-19, possibly with remdesivir, Decadron, and other therapies. Since he has been doing much better, at this time he will be returning home, but he understands to keep very low threshold for additional reassessment, as we had a detailed discussion with him and with his daughter present on conference call, regarding noted deterioration in some cases in patients with COVID-19 despite initial improvement. He states he will keep very low threshold for additional reassessment in case of any concerning symptoms. On discharge for now his combination bisoprolol-HCTZ is held, with bisoprolol and continued for about a week to avoid additional dehydration. If there is no further recurrence of diarrhea, he continues to tolerate oral intake well, likely his usual medication at that point can be resumed. 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 Cardioversion may still be consideration in case there is lack of improvement of symptoms despite recovery from pneumonia and COVID-19, in which case his symptoms may be secondary to atrial fibrillation, although his progress so far has been encouraging. 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 Physical Exam Const: COMMON NORMALS: no acute distress and patient oriented x3 HENMT: COMMON NORMALS: oropharynx normal Neck/C-Spine: COMMON NORMALS: no JVD Resp: COMMON NORMALS: normal respiratory effort and clear to auscultation bilaterally AUSCULTATION: clear to auscultation bilaterally Cardio: COMMON NORMALS: no JVD, S1 normal heart sound present, S2 normal heart sound present and No murmurs present (Cardio) RHYTHM: abnormal rhythm irregularly irregular HEART SOUNDS: S1 normal heart sound present and S2 normal heart sound present GI: COMMON NORMALS: Normal to inspection, nondistended, normoactive bowel sounds present, Soft to palpation and non-tender PALPATION: Yes Soft to palpation Extremity: COMMON NORMALS: no joint enlargement and no pedal edema Neuro: COMMON NORMALS: patient oriented x3 and moves all extremities Skin: COMMON NORMALS: no rashes or lesions noted GENERAL SKIN EXAM: no rashes or lesions noted Discharge Data Data Completed and Pending: Completed Studies During Hospitalization Category Date Time Status XR chest 1V poly ble [id number] Urgent Exams 10/16/20 20:28 [place] [id number]/25 Routin e Ultrasound 10/17/20 07:46 Completed Pending at discharge Category Date Time Status Blood Culture Sta t Lab 10/16/20 21:34 Results Vitals: Last Vital Signs Temp 98.8 F 10/19/20 07:05 Pulse 83 10/19/20 17:09 Resp 18 10/19/20 08:54 BP 145/81 10/19/20 07:05 Pulse Ox 92 10/19/20 17:09 Discharge Plan Discharge Patient Disposition: Home Condition: Stable Prescriptions: New diltiazem HCl 30 mg Tablet 30 mg PO TID Qty: 90 RF: 0 bisoprolol fumarate 5 mg Tablet 10 mg PO DAILY Qty: 7 RF: 0 Continued trazodone 300 mg tablet 300 mg PO BEDTIME@2199 RF: 0 lovastatin 40 mg tablet 40 mg PO DAILY@2199 RF: 0 allopurinol 300 mg tablet 300 mg PO DAILY@220 RF: 0 folic acid 1 mg tablet 1 mg PO DAILY@2199 RF: 0 multivitamin Tablet 1 tab PO DAILY@2199 RF: 0 hydrocodone-acetaminophen 10-325 mg tablet 1 tab PO QID 30 Days Qty: 120 RF: 0 testosterone cypionate 200 mg/mL oil 200 mg IM .EVERY 10 DAYS Qty: 10 RF: 5 Symbicort 80-4.5 mcg/actuation HFA aerosol inhaler 2 puff INHALATION BID@ RF: 0 vitamin E 1,000 unit Capsule 1,000 unit PO DAILY@220 RF: 0 sennosides [senna] 8.6 mg Tablet 8.6 mg PO DAILY PRN (Reason: Constipation) RF: 0 ascorbic acid (vitamin C) [Vitamin C] 1,000 mg Tablet 1,000 mg PO DAILY@2199 RF: 0 aspirin 325 mg Tablet 325 mg PO DAILY@2199 RF: 0 docusate sodium [Colace] 100 mg Capsule 100 mg PO DAILY PRN (Reason: Constipation) RF: 0 albuterol sulfate [Ventolin HFA] 90 mcg/actuation Hfa Aerosol Inhaler 2 puff INHALATION Q4H PRN (Reason: Shortness Of Breath) RF: 0 loratadine [Claritin] 10 mg Tablet 10 mg PO DAILY@2199 RF: 0 triamcinolone acetonide 0.1 % ointment 1 applic TOPICAL BID Qty: 30 RF: 0 Held bisoprolol-hydrochlorothiazide 10-6.25 mg tablet 1 tab PO DAILY@220 RF: 0 Hold Instructions: Resume on 10/26/20. Discharge Orders: Discharge Order (Routine); Ordered 10/19/20 Ordered By: Gilberto Hernández Referrals: Raiza Orourke MD [Physician] - 1 month Shant Ballesteros MD [Primary Care Provider] - 11/02/20 1:00 pm (Please call office before appointment for screening questions. Please wear a mask to appointment. ) Discharge Diet: Advance as tolerated and Cardiac Discharge Activity: Increase activity as tolerated Patient Instructions: Diltiazem (By mouth), Levofloxacin (By mouth), Bisoprolol/Hydrochlorothiazide (By mouth), Atrial Fibrillation (GEN), Viral Pneumonia (DC) Activity Restrictions/Additional Instructions: Please maintain isolation until October 30, then if you have no fever for at least 24 hours, no other symptoms including nausea vomiting diarrhea, severe fatigue, headache, and any improving cough for least 5 or hours, isolation may be discontinued. Please keep low threshold for additional medical evaluation in case of any change or worsening her symptoms, including any worsening shortness of breath, if you notice any fast breathing, any extreme fatigue, any fainting or near fainting symptoms, any blue discoloration of fingers, lips, any chest pain or pressure, or any other concerning symptoms, please seek medical attention without delay. Please monitor your heart rate and blood pressure at home, record values at least twice daily to bring to your appointment. Please note that in addition to bisoprolol you are started on Cardizem (diltiazem) to help control heart rates due to atrial fibrillation. If you experience very high rates that are persistent, despite taking a rest, and despite taking her medications, please get in touch with your primary care doctor or Dr. Orourke. Discuss again with your primary care doctor and realtime court reporter consideration of anticoagulation and stroke risk with atrial fibrillation. To avoid dehydration for now please hold the combination medication bisoprolol- HCTZ, instead taking bisoprolol alone over the next week. If there is no further diarrhea, no risk of dehydration, you may resume your usual blood pressure medication unless told otherwise by your primary care doctor. Please complete antibiotic course for possible additional bacterial pneumonia superimposed on coronavirus pneumonia. Continue CPAP nightly with sleep for sleep apnea. Please discuss with your primary care doctor regarding elevated red blood cell count, to follow that up, as well as adjust testosterone dosing. Please avoid any NSAIDs like ibuprofen, Aleve, due to mild kidney injury noted on presentation which so far has since resolved. Please include dairy if you are able to for additional phosphorus supplementation. Your phosphorus level was mildly low noted in the hospital. Discuss with your primary care doctor for follow-up. Please continue follow-up with your bead forming machine set up operator regarding restrictive lung disease. Discharge Attestations Time Spent in Discharge Care*: greater than 30 min Quality Metrics Clinical Quality Measures During this hospital stay, did patient experience: None Coding Level of Care Code Acute Cigar Packer And Grader for Chg Fwd Exam Comprehensive Diagnoses New onset a-fib I48.91 Obstructive sleep apnea hypopnea, mild G47.33 Febrile illness, acute R50.9 COVID-19 determined by clinical diagnostic criteria U07.1 Polycythemia D75.1 Acute kidney injury N17.9 Restrictive lung disease due to kyphoscoliosis J98.4; M41.9 Thyroid nodule E04.1 Testosterone deficiency E34.9 Chronic pain syndrome G89.4
== END 2020-10-19 17:00 | disposition home or self-care (01) | DRG 177 ==
LOC: ER 20:35 → MEDSURG 10-17 06:00 → MS 2A 10-18 17:50
PROVIDERS: Admitting Provider Hospitalist; Emergency Provider Emergency Medicine; PCP Family Medicine; Visit Provider Internal Medicine
DX: U07.1 COVID-19 (principal); J12.82 Pneumonia due to coronavirus disease 2019; N17.9 Acute kidney failure, unspecified; J45.909 Unspecified asthma, uncomplicated; G89.4 Chronic pain syndrome; N52.9 Male erectile dysfunction, unspecified; I10 Essential (primary) hypertension; G47.33 Obstructive sleep apnea (adult) (pediatric); Z79.891 Long term (current) use of opiate analgesic; M41.9 Scoliosis, unspecified; Z87.442 Personal history of urinary calculi; Z98.1 Arthrodesis status; Z87.891 Personal history of nicotine dependence; D75.1 Secondary polycythemia; I48.91 Unspecified atrial fibrillation; I25.2 Old myocardial infarction; M21.379 Foot drop, unspecified foot; I25.10 Atherosclerotic heart disease of native coronary artery without angina pectoris; Z79.82 Long term (current) use of aspirin; E29.1 Testicular hypofunction; R19.7 Diarrhea, unspecified; E86.0 Dehydration; E03.9 Hypothyroidism, unspecified; E78.5 Hyperlipidemia, unspecified
CPT/HCPCS: 12345; 36415; 36600; 71045; 80053; 82550; 82728; 82805; 83605; 83615; 83735; 83880; 84100; 84145; 84443; 84484; 85025; 85378; 85384; 85610; 86140; 87040; 87426; 87635; 87804; 93005; 93308; 93325; 94640; 94660; 94664; 96372; 99283; J1650; J1885; J1956; J3535; J7030

== ENCOUNTER → 2020-10-28 12:43 | Outpatient (BNVA) | payer MEDICARE, SELFPAY | PROVIDERS: PCP Family Medicine; Visit Provider Anesthesiology | DX: G89.29 Other chronic pain (principal); M54.9 Dorsalgia, unspecified; M25.561 Pain in right knee; M25.562 Pain in left knee; M25.512 Pain in left shoulder; Z79.891 Long term (current) use of opiate analgesic | CPT/HCPCS: 99213; 99214 ==

== ENCOUNTER 2020-11-15 09:40 | Outpatient (CLI) | payer MEDICARE, SELFPAY ==
--- NOTE | 2020-11-15 09:45 | XR_ITS ---
WS: [id number] ABDOMEN: SUPINE FILM HISTORY: renal stone COMPARISON: 11/11/2019 Increased fecal material throughout the colon. Severe degenerative changes in the lumbar spine. Harri ngton rods in the thoracic spine and posterior lumbar fusion at L5-S1. Right kidney: 7 mm calcification just above the RIGHT iliac crest. This may be within the kidney. No change in the size or location of this calcification. Left kidney: No renal or ureteral stone identified. XR/XR KUB [id number] IMPRESSION: 7 mm calcification just above the RIGHT iliac crest may be associated with the kidney. No interval change.
== END 2020-11-15 09:41 | disposition home or self-care (01) ==
PROVIDERS: PCP Family Medicine; Visit Provider Urology
DX: N20.0 Calculus of kidney (principal)
CPT/HCPCS: 74018; 81003; 84403; G0103

== ENCOUNTER → 2020-12-06 09:10 | Outpatient (BNVA) | payer MEDICARE, SELFPAY | PROVIDERS: PCP Family Medicine; Visit Provider Internal Medicine Rheumatology | DX: M79.673 Pain in unspecified foot (principal); M19.041 Primary osteoarthritis, right hand; M19.042 Primary osteoarthritis, left hand; M17.0 Bilateral primary osteoarthritis of knee; Z87.891 Personal history of nicotine dependence; M79.643 Pain in unspecified hand | CPT/HCPCS: 73130; 73630; 99203 ==

== ENCOUNTER 2020-12-06 10:56 | Outpatient (CLI) | payer MEDICARE, SELFPAY ==
--- NOTE | 2020-12-06 11:04 | XRR_ITS ---
PROCEDURE INFORMATION: Exam: XR Left Hand Exam date and time: 12/06/2020 11:16 AM Age: 65 years old Clinical indication: Pain; Hand; Left; Additional info: M79.643 - pain in unspecified hand TECHNIQUE: Imaging protocol: XR Left hand. Views: 3 or more views. COMPARISON: No relevant prior studies available. FINDINGS: Bones/joints: Mild to moderate chronic degenerative osteoarthritis is present predominantly in the interphalangeal joint of the thumb and in the DIP joints of the fingers with joint space narrowing and sclerosis. No fracture or other acute abnormalities are seen. Soft tissues: Normal. XR/XR hand LT min 3V* [id number] IMPRESSION: Chronic degenerative osteoarthritis. No acute abnormality.
--- NOTE | 2020-12-06 11:04 | XRR_ITS ---
PROCEDURE INFORMATION: Exam: XR Right Foot Exam date and time: 12/06/2020 11:25 AM Age: 65 years old Clinical indication: Pain; Foot; Right; Additional info: M79.643 - pain in unspecified hand TECHNIQUE: Imaging protocol: XR Right foot. Views: 3 or more views. COMPARISON: No relevant prior studies available. FINDINGS: Bones/joints: Mild chronic degenerative changes are present predominantly in the 1st metatarsophalangeal joint and in the interphalangeal joints with joint space narrowing and mild sclerosis. No fracture or other acute abnormalities are seen. There is chronic spurring on the calcaneus with multiple calcifications in the projection of the plantar aponeurosis. This is consistent with a calcific tendinitis. Soft tissues: Normal. XR/XR foot RT min 3V* [id number] IMPRESSION: 1. No acute abnormality. 2. Mild chronic degenerative disease. 3. Multiple calcifications in the plantar aponeurosis consistent with a calcific tendinitis.
== END 2020-12-06 10:57 | disposition home or self-care (01) ==
PROVIDERS: PCP Family Medicine; Visit Provider Internal Medicine Rheumatology
DX: M79.643 Pain in unspecified hand (principal); M79.673 Pain in unspecified foot
CPT/HCPCS: 73130; 73630

== ENCOUNTER 2020-12-07 22:37 | Emergency (ER) | payer MEDICARE, SELFPAY ==
[2020-12-07 22:42] VITALS: BP 144/66; PULSE 80; RESP 15; O2SAT 92; BMI 38.9
--- NOTE | 2020-12-07 23:03 | CTR_ITS ---
PROCEDURE INFORMATION: Exam: CT Abdomen And Pelvis Without Contrast Exam date and time: 12/07/2020 11:13 PM Age: 65 years old Clinical indication: Abdominal pain; Flank; Left; Prior surgery; Surgery type: Marr. Lumbar fusion. ; Patient HX: Onset of severe back pain earlier today with no injury. TECHNIQUE: Imaging protocol: Computed tomography of the abdomen and pelvis without contrast. Radiation optimization: All CT scans at this facility use at least one of these dose optimization techniques: automated exposure control; mA and/or kV adjustment per patient size (includes targeted exams where dose is matched to clinical indication); or iterative reconstruction. COMPARISON: CT pelvis w con* [id number] 01/30/2020 6:56 PM RADIATION DOSE METRICS: Total DLP (mGy-cm): 1926.09 FINDINGS: Lungs: Scarring or atelectasis present in the left lower lobe. Liver: There is fatty infiltration of the liver. Gallbladder and bile ducts: No wall thickening, pericholecystic fluid or stones. Pancreas: Normal. No ductal dilation. Spleen: Normal. No splenomegaly. Adrenal glands: Normal. No mass. Kidneys and ureters: Two left renal cysts are present, largest measures approximately 2.3 cm. 4 mm non-obstructing right renal pelvis stone. Stomach and bowel: Unremarkable. No obstruction. No mucosal thickening. Appendix: The appendix is not positively identified. However, no secondary changes of appendicitis are present. Intraperitoneal space: Unremarkable. No free air. No significant fluid collection. Vasculature: Unremarkable. No abdominal aortic aneurysm. Lymph nodes: Unremarkable. No enlarged lymph nodes. Urinary bladder: Unremarkable as visualized. Reproductive: Unremarkable as visualized. Bones/joints: Marr rods extend from the thoracic spine to L1. There is intact posterior fusion hardware at L5-S1. There is mild degenerative disc space narrowing. Soft tissues: Fat containing left inguinal hernia. CT/CT abdomen pelvis wo con [id number] IMPRESSION: 1. 4 mm non-obstructing right renal pelvis stone. 2. Mild degenerative disc disease with intact posterior fusion hardware at L4-L5. 3. Fat containing left inguinal hernia. 4. Fatty liver. 5. The appendix is not positively identified. However, no secondary changes of appendicitis are present. COMMENTS: Consistent with the [employer] [place] [employer]'s Incidental Findings Committee white paper (J Am Dg Radiol 2018): Any incidental renal lesion less than 1 cm or classified as too small to characterize, or any incidental cystic renal lesion characterized as simple-appearing, is likely benign. No follow-up imaging is recommended for these lesions per consensus recommendations based on imaging criteria. Radiation Dose CTDIVOL = (mGy): DLP = 1926.09 (mGy-cm)
--- NOTE | 2020-12-07 23:03 | CTR_ITS ---
PROCEDURE INFORMATION: Exam: CT Lumbar Spine Without Contrast Exam date and time: 12/07/2020 11:13 PM Age: 65 years old Clinical indication: Low back pain; Prior surgery; Surgery type: Marr. Lumbar fusion. ; Patient HX: Onset of severe back pain earlier today without injury. TECHNIQUE: Imaging protocol: Computed tomography images of the lumbar spine without contrast. Radiation optimization: All CT scans at this facility use at least one of these dose optimization techniques: automated exposure control; mA and/or kV adjustment per patient size (includes targeted exams where dose is matched to clinical indication); or iterative reconstruction. COMPARISON: No relevant prior studies available. RADIATION DOSE METRICS: Total DLP (mGy-cm): 2397.31 FINDINGS: Vertebrae: Residual grade 1 anterolisthesis of L5 on S1. There is moderate facet hypertrophic osteoarthritis at L4-L5. Posterior fusion hardware extends from the thoracic spine to L1. No fracture. Discs/Spinal canal/Neural foramina: Intact posterior fusion hardware L5-S1 with intervertebral disc spacer. There is mild diffuse disc space narrowing. Moderate canal stenosis at L3-L4 secondary to broad-based disc protrusion. No foraminal stenosis. Moderate to severe canal stenosis at L4-L5 secondary to broad-based disc protrusion. There is moderate right neural foraminal stenosis. Soft tissues: Unremarkable. CT/CT lumbar spine wo con* [id number] IMPRESSION: 1. No fracture. 2. Multilevel degenerative disc disease which is most severe at L4-L5. 3. Intact posterior fusion hardware L5-S1 with intervertebral disc spacer. Radiation Dose CTDIVOL = (mGy): DLP = 2397.31 (mGy-cm)
--- NOTE | 2020-12-07 23:20 | ED_ITS ---
HPI - Back Pain/Injury General: Chief Complaint: Back Pain/Injury Stated Complaint: BACK PAIN Time Seen by Provider: 12/07/20 22:57 Source: patient Mode of arrival: ambulatory Limitations: no limitations History of Present Illness: HPI Narrative: 65-year-old male who has a history of chronic back pain. He states that he was getting off the toilet today and felt a sharp sudden pain in his lower back that is worsened throughout the night. He states pain is now a 9 out of 10. He states he took his methadone at home with little relief. He states he does have appointment with pain management and Dr. Garcia tomorrow. Denies any bowel or bladder incontinence. He denies any increased weakness in his lower extremities. He has had lower back surgeries in the past. MD elicited complaint: back pain Pertinent past history: prior back pain Associated symptoms: Deny abdominal pain, chills, dysuria, fever(s), nausea or vomiting Review of Systems Const: Denies: fever(s), chills, body aches or change in appetite Eyes: Denies: blurry vision or eye discomfort ENMT: Denies: throat pain or dental pain Card: Denies: chest pain Resp: Denies: dyspnea GI: Denies: abdominal pain, nausea, vomiting or diarrhea : Denies: dysuria Musc: Reports: back pain Skin/Breast: Denies: rash Neuro: Denies: headache(s) Psych: Denies: depression Leif/Lymph: Denies: easy bruising All/Imm: Denies: urticaria PFSH ED PFSH: Medical History (Updated 12/08/20 @ 00:20 by Donato Chance MD) Allergies Asthma Bilateral knee pain Chronic low back pain Chronic pain syndrome COVID-19 determined by clinical diagnostic criteria Degenerative joint disease (DJD) of lumbar spine Erectile dysfunction Hypertension New onset a-fib Opioid contract exists Osteoarthritis of hands, bilateral Osteoarthritis of knees, bilateral Pain in left shoulder Polycythemia Restrictive lung disease due to kyphoscoliosis Right renal stone Substernal goiter Suspected exposure to asbestos Testosterone deficiency Surgical History H/O ankle fusion H/O arthroscopic knee surgery H/O wrist surgery History of appendectomy History of back surgery History of shoulder surgery S/P ureteral stent placement Family History Grandfather CAD (coronary artery disease) Family/Other Cancer Grandmother Dementia Stroke Mother Lung disease Other Hypertension Denies family history of Rheumatoid arthritis Diabetes Lupus Clotting disorder Hyperlipidemia Chronic kidney disease (CKD) Suicide Anesthesia complication Bleeding disorder Social History Smoking and tobacco status: former smoker Quit status (tobacco): has quit using tobacco Year quit tobacco: 1975 [id number] Second hand smoke exposure: Yes Smoking risk assessment/counseling performed?: Yes Alcohol intake: never Adopted: No Caregiver/support person: No Lives independently: Yes Household members: none Housing: House Marital status: / service: No Current occupational status: retired Pets and animals: Yes History of recent travel: No Current gender identity: Male Physical Exam Const: COMMON NORMALS: no acute distress, patient oriented x3 and healthy appearing HENMT: COMMON NORMALS: normocephalic and atraumatic HEAD & SCALP: normocephalic and atraumatic Eye: COMMON NORMALS: Equal, round and reactive pupils present and EOMs intact bilaterally PUPIL: Yes Equal, round and reactive pupils present Neck/C-Spine: COMMON NORMALS: full ROM and supple Chest: COMMONS NORMALS: normal inspection of the chest and normal palpation of entire chest wall Resp: COMMON NORMALS: normal respiratory effort, No retractions, No use of accessory muscles and clear to auscultation bilaterally AUSCULTATION: clear to auscultation bilaterally Cardio: COMMON NORMALS: regular rate, regular rhythm and No murmurs present (Cardio) RATE: regular rate RHYTHM: regular rhythm GI: COMMON NORMALS: Normal to inspection, nondistended, normoactive bowel sounds present, Soft to palpation, non-tender and no masses PALPATION: Yes Soft to palpation Extremity: COMMON NORMALS: normal to inspection and full ROM Neuro: COMMON NORMALS: patient oriented x3, moves all extremities and no focal motor deficits Psych: COMMON NORMALS: mental status grossly normal, Normal thought process present and cooperative THOUGHT PROCESS: Normal thought process present Skin: COMMON NORMALS: no rashes or lesions noted and no wounds GENERAL SKIN EXAM: no rashes or lesions noted Course Vital Signs: Vital signs: Vital Signs Pulse Rate 70 12/08/20 01:03 Respiratory Rate 16 12/08/20 01:03 Blood Pressure 111/61 12/08/20 01:03 Pulse Oximetry 94 12/08/20 01:03 MDM - Back Pain/Injury MDM Narrative: Medical decision making narrative: Charan presents here with back pain that is acute on chronic in nature. Patient's CT showed degenerative disc disease with no acute findings. Patient has follow-up with spine surgeon and pain management tomorrow. His pain is improved here. Is no signs of cord compression or epidural abscess. Patient stable for discharge and return if worsening. Lab Data: Labs: Lab Results 12/07/20 12/07/20 Range/Units 23:40 23:40 WBC 8.6 (4.0-10.0) 10^3/ uL RBC 5.52 H (4.1-5.3) 10^6/u L Hgb 17.3 H (11.7-16.6) g/dL Hct 53.6 H (42.0-52.0) % MCV 97.1 H (80-94) fL MCH 31.3 (28.0-34.0) pg MCHC 32.3 (30.0-36.0) g/dL RDW 14.6 (12.1-15.1) % Plt Count 193 (130-400) 10^3/c mm MPV 9.5 (7.4-10.4) fL Neut % (Auto) 64.3 % Lymph % (Auto) 21.2 % Wallace % (Auto) 9.5 % Eos % (Auto) 3.4 % Baso % (Auto) 0.8 % Neut # (Auto) 5.55 (1.8-7.7) 10^3/u L Lymph # (Auto) 1.8 (0.8-4.8) 10^3/u L Wallace # (Auto) 0.8 (0.2-0.9) 10^3/u L Eos # (Auto) 0.3 (0.0-0.8) 10^3/u L Baso # (Auto) 0.1 (0.0-0.1) 10^3/u L Nucleated RBC % (a uto) 0 % Nucleated RBCs # 0.0 /100WBC Sodium 139 (136-145) mmol/L Potassium 4.4 (3.5-5.1) mmol/L Chloride 101 (98-107) mmol/L Carbon Dioxide 30 H (22-29) mmol/L Anion Gap 12.4 (5-19) BUN 15 (8-23) mg/dL Creatinine 0.9 (0.7-1.2) mg/dL GFR Calculation 84.7 L (90-130) mL/min Glucose 119 H (65-115) mg/dL Calculated Osmolal ity 290 (285-295) mOsm/k g Calcium 9.3 (8.5-10.5) mg/dL Total Bilirubin 0.4 (0.15-1.2) mg/dL AST 19 (0-40) U/L ALT 23 (0-41) U/L Alkaline Phosphata se 53 (40-130) IU/L Total Protein 6.7 (6.6-8.7) g/dL Albumin 4.4 (3.5-5.2) g/dL Globulin 2.3 (1.3-4.6) g/dL Imaging Data^: CT Abd/Pel: Radiologist's impression: [facility] [address] [address] Scan Report Signed Patient: Charan Voss Unit #: [id number] : 1955 Age/Sex: 65 / M ADM Date: 12/07/20 Loc: ER Room/Bed: Attending Dr: Ordering Provider/Ordering MD: Donato Chance MD Date of Service: 12/07/20 Procedure(s): CT abdomen pelvis con [id number] Accession Number(s): [id number] Report Number: [id number] PROCEDURE INFORMATION: Exam: CT Abdomen And Pelvis Without Contrast Exam date and time: 12/07/2020 11:13 PM Age: 65 years old Clinical indication: Abdominal pain; Flank; Left; Prior surgery; Surgery type: Marr. Lumbar fusion. ; Patient HX: Onset of severe back pain earlier today with no injury. TECHNIQUE: Imaging protocol: Computed tomography of the abdomen and pelvis without contrast. Radiation optimization: All CT scans at this facility use at least one of these dose optimization techniques: automated exposure control; mA and/or kV adjustment per patient size (includes targeted exams where dose is matched to clinical indication); or iterative reconstruction. COMPARISON: CT pelvis w con* [id number] 01/30/2020 6:56 PM RADIATION DOSE METRICS: Total DLP (mGy-cm): 1926.09 FINDINGS: Lungs: Scarring or atelectasis present in the left lower lobe. Liver: There is fatty infiltration of the liver. Gallbladder and bile ducts: No wall thickening, pericholecystic fluid or stones. Pancreas: Normal. No ductal dilation. Spleen: Normal. No splenomegaly. Adrenal glands: Normal. No mass. Kidneys and ureters: Two left renal cysts are present, largest measures approximately 2.3 cm. 4 mm non-obstructing right renal pelvis stone. Stomach and bowel: Unremarkable. No obstruction. No mucosal thickening. Appendix: The appendix is not positively identified. However, no secondary changes of appendicitis are present. Intraperitoneal space: Unremarkable. No free air. No significant fluid collection. Vasculature: Unremarkable. No abdominal aortic aneurysm. Lymph nodes: Unremarkable. No enlarged lymph nodes. Urinary bladder: Unremarkable as visualized. Reproductive: Unremarkable as visualized. Bones/joints: Marr rods extend from the thoracic spine to L1. There is intact posterior fusion hardware at L5-S1. There is mild degenerative disc space narrowing. Soft tissues: Fat containing left inguinal hernia. CT/CT abdomen pelvis wo con [id number] IMPRESSION: 1. 4 mm non-obstructing right renal pelvis stone. 2. Mild degenerative disc disease with intact posterior fusion hardware at L4-L5. 3. Fat containing left inguinal hernia. 4. Fatty liver. 5. The appendix is not positively identified. However, no secondary changes of appendicitis are present. Other CT: Radiologist's impression: [address] [address] [address] Scan Report Signed Patient: Charan Voss Unit #: [id number] : 1955 Age/Sex: 65 / M ADM Date: 12/07/20 Loc: ER Room/Bed: Attending Dr: Ordering Provider/Ordering MD: Donato Chance MD Date of Service: 12/07/20 Procedure(s): CT lumbar spine wo con* [id number] Accession Number(s): [id number] Report Number: [id number] PROCEDURE INFORMATION: Exam: CT Lumbar Spine Without Contrast Exam date and time: 12/07/2020 11:13 PM Age: 65 years old Clinical indication: Low back pain; Prior surgery; Surgery type: Marr. Lumbar fusion. ; Patient HX: Onset of severe back pain earlier today without injury. TECHNIQUE: Imaging protocol: Computed tomography images of the lumbar spine without contrast. Radiation optimization: All CT scans at this facility use at least one of these dose optimization techniques: automated exposure control; mA and/or kV adjustment per patient size (includes targeted exams where dose is matched to clinical indication); or iterative reconstruction. COMPARISON: No relevant prior studies available. RADIATION DOSE METRICS: Total DLP (mGy-cm): 2397.31 FINDINGS: Vertebrae: Residual grade 1 anterolisthesis of L5 on S1. There is moderate facet hypertrophic osteoarthritis at L4-L5. Posterior fusion hardware extends from the thoracic spine to L1. No fracture. Discs/Spinal canal/Neural foramina: Intact posterior fusion hardware L5-S1 with intervertebral disc spacer. There is mild diffuse disc space narrowing. Moderate canal stenosis at L3-L4 secondary to broad-based disc protrusion. No foraminal stenosis. Moderate to severe canal stenosis at L4-L5 secondary to broad-based disc protrusion. There is moderate right neural foraminal stenosis. Soft tissues: Unremarkable. CT/CT lumbar spine wo con* [id number] IMPRESSION: 1. No fracture. 2. Multilevel degenerative disc disease which is most severe at L4-L5. 3. Intact posterior fusion hardware L5-S1 with intervertebral disc spacer Discharge Plan Discharge Patient Disposition: Home Clinical Impression: Low back pain Qualifiers: Chronicity: chronic Back pain laterality: bilateral Sciatica presence: without sciatica Qualified Code(s): M54.5 - Low back pain Condition: Stable Prescriptions: No Action trazodone 300 mg tablet 300 mg PO BEDTIME@2200 RF: 0 allopurinol 300 mg tablet 300 mg PO DAILY@2200 RF: 0 folic acid 1 mg tablet 1 mg PO DAILY@2200 RF: 0 bisoprolol-hydrochlorothiazide 10-6.25 mg tablet 1 tab PO DAILY@2200 RF: 0 Hold Instructions: Resume on 10/26/20. multivitamin Tablet 1 tab PO DAILY@2200 RF: 0 biotin 1 mg tablet 1 mg PO DAILY RF: 0 krill oil 500 mg capsule PO DAILY RF: 0 xtzy-jnoek-qbj-D3-hyal-fawad bor 750 mg-100 mg- 25 mcg tablet PO DAILY RF: 0 lycopene 10 mg capsule 10 mg PO DAILY RF: 0 resveratrol 250 mg capsule PO DAILY RF: 0 saw palmetto 500 mg capsule 500 mg PO DAILY RF: 0 cholecalciferol (vitamin D3) 10 mcg/mL (400 unit/mL) drops 10 mcg PO .spray daily RF: 0 diltiazem HCl 120 mg capsule,extended release 24hr 120 mg PO DAILY 30 Days Qty: 30 RF: 5 atorvastatin [Lipitor] 40 mg tablet 40 mg PO DAILY 30 Days Qty: 30 RF: 5 Eliquis 5 mg tablet 5 mg PO BID 30 Days Qty: 60 RF: 5 testosterone cypionate 200 mg/mL oil 200 mg IM .EVERY 10 DAYS Qty: 10 RF: 5 Symbicort 80-4.5 mcg/actuation HFA aerosol inhaler 2 puff INHALATION BID@ RF: 0 vitamin E 1,000 unit Capsule 1,000 unit PO DAILY@2200 RF: 0 sennosides [senna] 8.6 mg Tablet 8.6 mg PO DAILY PRN (Reason: Constipation) RF: 0 ascorbic acid (vitamin C) [Vitamin C] 1,000 mg Tablet 1,000 mg PO DAILY@2200 RF: 0 albuterol sulfate [Ventolin HFA] 90 mcg/actuation Hfa Aerosol Inhaler 2 puff INHALATION Q4H PRN (Reason: Shortness Of Breath) RF: 0 loratadine [Claritin] 10 mg Tablet 10 mg PO DAILY@2200 RF: 0 triamcinolone acetonide 0.1 % ointment 1 applic TOPICAL BID Qty: 30 RF: 0 Discharge Orders: Discharge ED (Routine); Ordered 12/08/20 Ordered By: Donato Chance Referrals: Shant Ballesteros MD [Primary Care Provider] - Discharge Diet: Advance as tolerated Discharge Activity: Resume usual activity Patient Instructions: Back Pain (ED) Coding Level of Care Code 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
[2020-12-07] MEDS: ondansetron 2 mg/ML SDV 2 mL 4 MG IVP (23:38)
[2020-12-07 23:42] VITALS: RESP 16; O2SAT 90
[2020-12-07] MEDS: HYDROmorphone 1 mg/mL INJ 1 mL IVP (23:42)
[2020-12-07 23:58] LABS: Basophils # 0.1 10^3/uL (0.0-0.1); Basophils % 0.8 %; Eosinophils # 0.3 10^3/uL (0.0-0.8); Eosinophils % 3.4 %; Hematocrit 53.6 % (42.0-52.0); Hemoglobin 17.3 g/dL (11.7-16.6); Lymphocytes # 1.8 10^3/uL (0.8-4.8); Lymphocytes % 21.2 %; Mean Corpuscular HGB Conc 32.3 g/dL (30.0-36.0); Mean Corpuscular Hemoglobin 31.3 pg (28.0-34.0); Mean Corpuscular Volume 97.1 fL (80-94); Mean Platelet Volume 9.5 fL (7.4-10.4); Monocytes # 0.8 10^3/uL (0.2-0.9); Monocytes % 9.5 %; Neutrophils # 5.55 10^3/uL (1.8-7.7); Neutrophils % 64.3 %; Nucleated Red Blood Cells % 0 %; Platelet Count 193 10^3/cmm (130-400); Red Blood Count 5.52 10^6/uL (4.1-5.3); Red Cell Distribution Width 14.6 % (12.1-15.1); White Blood Count 8.6 10^3/uL (4.0-10.0)
[2020-12-08 00:13] LABS: Alanine Aminotransferase 23 U/L (0-41); Albumin Level 4.4 g/dL (3.5-5.2); Alkaline Phosphatase 53 IU/L (40-130); Anion Gap 12.4 (5-19); Aspartate Amino Transferase 19 U/L (0-40); Blood Urea Nitrogen 15 mg/dL (8-23); Calcium 9.3 mg/dL (8.5-10.5); Carbon Dioxide 30 mmol/L (22-29); Chloride 101 mmol/L (98-107); Globulin 2.3 g/dL (1.3-4.6); Glomerular Filtration Rate 84.7 mL/min (90-130); Glucose 119 mg/dL (65-115); Osmolality Calculated 290 mOsm/kg (285-295); Potassium 4.4 mmol/L (3.5-5.1); Sodium 139 mmol/L (136-145); Total Bilirubin 0.4 mg/dL (0.15-1.2); Total Protein 6.7 g/dL (6.6-8.7)
[2020-12-08] MEDS: dexamethasone 10 mg/mL INJ IVP (00:51)
[2020-12-08 01:03] VITALS: BP 111/61; PULSE 70; RESP 16; O2SAT 94
--- NOTE | 2020-12-08 14:28 | XR_ITS ---
WS: [id number] Lumbar spine, AP standing, lateral standing with flexion, extension and neutral position, 12/08/2020 Clinical Data: M54.5 - Low back pain Comparison: None. Findings: There is a dextro scoliosis. The thoracic fusion extends to the L1 vertebral body with bilateral pedi saida screws at L1. The patient's had a posterior fusion bilaterally with pedicle screws and connecting rods at L5-S1. There is artificial disc material at L5-S1. Severe osteoarthritis is present. There i s disc space narrowing at all levels from L1 through L5. No compression fractures are seen. The trans verse processes and SI joints are normal. XR/XR lumbar spine min 4V [id number] Impression: 1. Dextroscoliosis with osteoarthritis and disc space narrowing at all levels. 2. Thoracic posterior fusion with the distal pedicle screws at L1. 2. Posterior fusion at L5-S1.
--- NOTE | 2020-12-08 14:28 | XR_ITS ---
WS: [id number] Thoracic spine, 3 views standing, 12/08/2020 Clinical Data: M54.5 - Low back pain Comparison: None. Findings: Patient has extensive fusion of the thoracic vertebral bodies anteriorly suggestive of ankylosing spo ndylitis. The patient has had a posterior lumbar fusion extending from T3 through L1 with orthopedic hooks connected with rods. There are also transverse sutures in the lower thoracic level between the connecting rods. No compression fractures are seen. The disc spaces are obliterated. XR/XR thoracic spine 2V [id number] Impression: 1. Extensive vertebral body fusions from the upper thoracic vertebral bodies to L1 suggestive of ankylosing spondylitis. 2. Posterior lumbar fusion from T3 through L1.
== END 2020-12-08 01:07 | disposition home or self-care (01) ==
PROVIDERS: Emergency Provider Emergency Medicine; PCP Family Medicine
DX: G89.29 Other chronic pain (principal); M54.5 Low back pain; Z79.01 Long term (current) use of anticoagulants; I10 Essential (primary) hypertension; Z87.891 Personal history of nicotine dependence; M47.816 Spondylosis without myelopathy or radiculopathy, lumbar region; M25.561 Pain in right knee; M25.562 Pain in left knee
CPT/HCPCS: 72070; 72110; 72131; 74176; 80053; 85025; 96374; 96375; 99213; 99283; J1100; J1170; J2405

== ENCOUNTER → 2020-12-08 10:56 | Outpatient (BNVA) | payer MEDICARE, SELFPAY | PROVIDERS: PCP Family Medicine; Visit Provider Anesthesiology | DX: G89.29 Other chronic pain (principal); M47.816 Spondylosis without myelopathy or radiculopathy, lumbar region; M25.561 Pain in right knee; M25.562 Pain in left knee; Z79.891 Long term (current) use of opiate analgesic | CPT/HCPCS: 99213 ==

== ENCOUNTER 2020-12-23 08:30 | Outpatient (CLI) | payer MEDICARE, SELFPAY ==
--- NOTE | 2020-12-23 08:37 | IR_ITS ---
WS: [id number] MYELOGRAM LUMBAR SPINE Fluoroscopic guided lumbar myelogram CLINICAL INFORMATION: M47.816 - Spondylosis without myelopathy or radiculopathy, lumbar region COMPARISON: None. TECHNIQUE: The procedure, including risks, benefits, and complications, were discussed with the patie nt who agreed to proceed. A timeout was performed to confirm correct patient, procedure, and site. Using sterile technique, the patient was prepped and draped in the usual sterile fashion. After admin istration of local anesthesia using 1% preservative-free lidocaine and using fluoroscopic guidance, a 22-gauge 5 inch spinal needle was advanced into the subarachnoid space at the L3-L4 level. Subsequen tly 13 cc of Omnipaque 240 was administered into the thecal sac. The needle was removed and hemostasi s was achieved. Spot fluoroscopic images were obtained. FLUOROSCOPIC TIME: 1.1 minutes. Spot fluoroscopic images demonstrate S-shaped lumbar scoliosis. Screw fixation L5-S1 with interconnecting rods. No evidence of hardware loosening. Partially visualiz ed postoperative changes in the lower thoracic and upper lumbar spine. Pedicle screw fixation at L1. Laminar hooks at T12. Hardware appears intact. No instability on flexion-extension. Grade 1 anterolis thesis L5 on S1 measuring [address] myelogram report for additional detail. IR/IR myelogram sp lumbar [id number] IMPRESSION: 1. Uncomplicated Lumbar myelogram. 2. S-shaped lumbar scoliosis. 3. Postoperative changes described above. 4. No instability on flexion-extension.
--- NOTE | 2020-12-23 08:37 | CT_ITS ---
WS: [id number] CT LUMBAR MYELOGRAM TECHNIQUE: CT myelogram of the lumbar spine with coronal and sagittal reformatted images. CLINICAL INFORMATION: M47.816 - Spondylosis without myelopathy or radiculopathy, lumbar region COMPARISON: CT lumbar December 07, 2020 and MRI December 2012 DLP: 2190.[address] scans at [facility] use at least one of these dose optimization techniques: automat ed exposure control; mA and/or kV adjustment per patient size (includes targeted exams where dose is matched to clinical indication); or iterative reconstruction. FINDINGS: Some images degraded due to beam Capellan artifact from hardware Lumbar scoliosis convex right. No acute compression fractures. Prior postoperative changes pedicle sc rew fixation L5-S1 with interconnecting rods and interbody fusion graft. Grade 1 anterolisthesis L5 o n S1 measuring 7 mm. Marr brooklynn in the lower thoracic spine extending to L1. Anterior hypertroph ic changes at L1-L4. Evidence of chronic arachnoiditis with adherence of the conus to the left dorsal dura at L1-2 with cl umping of the cauda equina nerve rootlets at the L2 level. Nerve roots have a more normal appearance distally in the thecal sac. L1-L2: No significant disc bulging. Posterior element fusion. Bony narrowing of the left subarticular recess. Spinal canal is patent. Conus eccentric to the left and appears adhered to the left dorsal t hecal sac L2-L3: Clumping of the left dorsal lateral nerve rootlets and filum eccentric to the left in the dors al thecal sac at this level consistent with arachnoiditis. Moderate facet arthropathy. Mild left and no significant right foraminal narrowing. L3-L4: Mild disc osteophytic ridging. Moderate central canal stenosis. Slight narrowing of the left s ubarticular recess. Moderate facet arthropathy. Mild left foraminal narrowing. L4-L5: Mild disc osteophytic ridging. Moderate central canal stenosis. Moderate facet arthropathy. Na rrowing of the subarticular recess bilaterally with slight impingement traversing L5 nerve roots. Mil d bilateral bony foraminal narrowing. Moderate facet arthropathy. L5-S1: Prior postoperative changes left hemilaminectomy with pedicle screw fixation. Spinal canal is patent. Osteophytic ridging results in severe right and moderate left bony foraminal narrowing. Impin gement on the exiting right greater than left L5 nerve roots. Advanced facet arthropathy. Osteophytic ridging impinges the traversing S1 nerve roots bilaterally. Adrenal glands are normal. Left renal cyst measuring 2.1 CM. Normal caliber abdominal aorta. CT/CT lumbar spine w con [id number] IMPRESSION: 1. S-shaped lumbar scoliosis. No acute compression fractures. 2. Prior postoperative changes described above with pedicle screw fixation L5- S1 interbody fusion graft. Evidence of bony bridging beyond the confines of the graft. No evidence of hardware loosening. 3. Postoperative changes Marr brooklynn fixation of the thoracic spine with pe dicle screw fixation at L1-2. 4. Grade 1 anterolisthesis L5 on S1 measuring 7 mm. 5. Evidence of chronic arachnoiditis with adherence of the conus dorsal left l ateral thecal sac at L1-2 and clumping of the cauda equina nerve rootlets and f ilum L2-3 also eccentric to the left dorsally. Distal cauda equina nerve rootle ts have a more normal appearance. 6. Moderate central canal stenosis L3-4 and L4-5. 7. Left hemilaminectomy L5-S1 with moderate to severe right and moderate left bony foraminal narrowing. Osteophytic ridging results in impingement traversing S1 nerve roots. 8. Mild left L2-3 and bilateral L4-5 foraminal narrowing. 9. Moderate to advanced facet arthropathy throughout the lumbar spine.
[2020-12-23] MEDS: iohexol 240 mg/mL 50 mL Btl INTRATHECA (10:09)
== END 2020-12-23 08:31 | disposition home or self-care (01) ==
LOC: RADWPI 08:35
PROVIDERS: PCP Family Medicine; Visit Provider Internal Medicine Pulmonary Disease
DX: M47.816 Spondylosis without myelopathy or radiculopathy, lumbar region (principal); M41.86 Other forms of scoliosis, lumbar region
CPT/HCPCS: 62304; 72120; 72132; Q9966

== ENCOUNTER 2021-02-02 13:31 | Outpatient (CLI) | payer MEDICARE, SELFPAY ==
--- NOTE | 2021-02-02 13:30 | US_ITS ---
WS: [id number] ULTRASOUND THYROID TECHNIQUE: Ultrasound of the thyroid. CLINICAL INFORMATION: E04.9 - Nontoxic goiter, unspecified COMPARISON: Ultrasound September 27, 2020 FINDINGS: Thyroid: Heterogeneous thyroid echotexture bilaterally. Multiple bilateral complex nodules the larges t in the left thyroid measuring 3.4 x 2.5 CM. This was previously biopsied and is unchanged from prev ious. A few subcentimeter cystic and solid right thyroid nodules are stable in appearance. Right thyroid lobe: 5.1 cm x 2.5 cm x 2.0 cm Left thyroid lobe: 7.5 cm x 5.1 cm x 5.4 cm. Isthmus: 0.9 mm. Cervical lymphadenopathy: None. US/US thyroid [id number] IMPRESSION: 1. Thyroid ultrasound is unchanged since September 27, 2020. 2. Largest thyroid nodule in the left lobe measuring 3.4 x 2.5 CM was previous ly sampled and unchanged from previous.
== END 2021-02-02 13:32 | disposition home or self-care (01) ==
LOC: RAD 13:35
PROVIDERS: PCP Family Medicine; Visit Provider Internal Medicine
DX: E04.9 Nontoxic goiter, unspecified (principal); E04.1 Nontoxic single thyroid nodule
CPT/HCPCS: 76536

== ENCOUNTER 2021-07-22 10:42 | Emergency (ER) | payer MEDICARE, SELFPAY ==
[2021-07-22 10:45] VITALS: BP 132/69; PULSE 93; RESP 18; TEMP 36.6; O2SAT 92; BMI 42.5
--- NOTE | 2021-07-22 11:02 | ED_ITS ---
HPI - Skin/Abscess/Foreign Bdy General: Chief complaint: Extremity Problem,Nontraumatic Stated complaint: ABSCESS LLE Time Seen by Provider: 07/22/21 10:53 Source: patient Mode of arrival: ambulatory Limitations: no limitations History of Present Illness: HPI narrative: Patient is a 66-year-old male who presents to ED today with a complaint of a skin lesion to his left lower leg that he noticed 2 days ago. Patient states he is concerned he could have gotten bit by a brown recluse spider. He has noticed a scant amount of clear drainage from the lesion. Reports lesion is painful. MD complaint: lesion Onset (ago): day(s) Tetanus up to date: yes Location: LLE Severity: mild Quality: burning Pain Consistency: constant Relieving factors: none Exacerbating factors: none Context: none Associated symptoms: Reports no associated symptoms; Deny chills, fever(s), nausea or vomiting Treatments prior to arrival: none Review of Systems Const: Denies: fever(s), chills, body aches, fatigue or malaise Card: Denies: chest pain Resp: Denies: dyspnea GI: Denies: abdominal pain, nausea, vomiting or diarrhea Musc: Denies: extremity swelling, joint pain, joint swelling, joint redness or limited range of motion Skin/Breast: Reports: new lesions Neuro: Denies: numbness in extremities, weakness in extremities, sensory changes or difficulty walking PFS ED PFSH: Medical History (Updated 07/22/21 @ 11:17 by JUAN Pierce) Allergies Asthma Bilateral knee pain Chronic low back pain Chronic pain syndrome COVID-19 determined by clinical diagnostic criteria Degenerative joint disease (DJD) of lumbar spine Erectile dysfunction Hypertension New onset a-fib Opioid contract exists Osteoarthritis of hands, bilateral Osteoarthritis of knees, bilateral Pain in left shoulder Polycythemia Restrictive lung disease due to kyphoscoliosis Right renal stone Substernal goiter Suspected exposure to asbestos Testosterone deficiency Surgical History H/O ankle fusion H/O arthroscopic knee surgery H/O wrist surgery History of appendectomy History of back surgery History of shoulder surgery S/P ureteral stent placement Family History Grandfather CAD (coronary artery disease) Family/Other Cancer Grandmother Dementia Stroke Mother Lung disease Other Hypertension Denies family history of Rheumatoid arthritis Diabetes Lupus Clotting disorder Hyperlipidemia Chronic kidney disease (CKD) Suicide Anesthesia complication Bleeding disorder Social History Smoking and tobacco status: former smoker Quit status (tobacco): has quit using tobacco Year quit tobacco: 1975 [id number] Second hand smoke exposure: Yes Smoking risk assessment/counseling performed?: Yes Alcohol intake: never Adopted: No Caregiver/support person: No Lives independently: Yes Household members: none Housing: House Marital status: / service: No Current occupational status: retired Pets and animals: Yes History of recent travel: No Current gender identity: Male Physical Exam Const: COMMON NORMALS: no acute distress, patient oriented x3, no limitations and alert NUTRITIONAL APPEARANCE: obese morbidly obese ORIENTATION/CONSCIOUSNESS: Yes awake, Yes oriented to person, Yes oriented to place and Yes oriented to time Resp: COMMON NORMALS: normal respiratory effort Extremity: COMMON NORMALS: normal to inspection, full ROM, capillary refill normal, no joint enlargement, no calf tenderness and no pedal edema GENERAL: Yes normal exam except as noted Neuro: COMMON NORMALS: patient oriented x3, moves all extremities, no focal motor deficits, no sensory deficits noted and gait normal SENSORIUM/ORIENTATION: Yes alert, Yes oriented to person, Yes oriented to place and Yes oriented to time Skin: NARRATIVE SKIN EXAM: patient has a small 2 cm area of faint erythema to his L lower medial leg/ankle; there is a small area of about 3mm central shallow ulceration with scant amount of clear drainage present; there is no induration, fluctuance, streaking, or hemorrhagic changes; chronic bilateral LE skin changes most likely consistent with venous stasis Course Vital Signs: Vital signs: Vital Signs Temperature 97.8 F 07/22/21 10:45 Pulse Rate 93 07/22/21 10:45 Respiratory Rate 18 07/22/21 10:45 Blood Pressure 132/69 07/22/21 10:45 Pulse Oximetry 92 07/22/21 10:45 MDM - Skin/Abscess/Foreign Bdy MDM Narrative: Medical decision making narrative: Low clinical suspicion for venomous spider bite. Could be developing ulcer. Patient is not a diabetic. Lesion at this time is very mild/superficial and I recommend conservative treatment but will write RX for antibiotics in case lesion continues to worsen. Recommend follow up with PCP. Return to ED precautions given. Discharge Plan Discharge Patient Disposition: Home Clinical Impression: Skin lesion of lower extremity Condition: Stable Prescriptions: New cephalexin 500 mg capsule 500 mg PO Q6H 7 Days Qty: 28 RF: 0 No Action lisinopril 2.5 mg tablet 2.5 mg PO BID RF: 0 Xarelto 20 mg tablet 20 mg PO DAILY Qty: 30 RF: 5 trazodone 300 mg tablet 300 mg PO BEDTIME@2199 RF: 0 allopurinol 300 mg tablet 300 mg PO DAILY@2199 RF: 0 folic acid 1 mg tablet 1 mg PO DAILY@2199 RF: 0 bisoprolol-hydrochlorothiazide 10-6.25 mg tablet 1 tab PO DAILY@2199 RF: 0 Hold Instructions: Resume on 10/26/20. multivitamin Tablet 1 tab PO DAILY@2199 RF: 0 biotin 1 mg tablet 1 mg PO DAILY RF: 0 krill oil 500 mg capsule PO DAILY RF: 0 pyjg-gpvey-yrq-D3-hyal-fawad bor 750 mg-100 mg- 25 mcg tablet PO DAILY RF: 0 lycopene 10 mg capsule 10 mg PO DAILY RF: 0 resveratrol 250 mg capsule PO DAILY RF: 0 saw palmetto 500 mg capsule 500 mg PO DAILY RF: 0 cholecalciferol (vitamin D3) 10 mcg/mL (400 unit/mL) drops 10 mcg PO .spray daily RF: 0 diltiazem HCl 120 mg capsule,extended release 24hr 120 mg PO DAILY 30 Days Qty: 30 RF: 5 atorvastatin [Lipitor] 40 mg tablet 40 mg PO DAILY 30 Days Qty: 30 RF: 5 testosterone cypionate 200 mg/mL oil 200 mg IM .EVERY 10 DAYS Qty: 10 RF: 5 Symbicort 80-4.5 mcg/actuation HFA aerosol inhaler 2 puff INHALATION BID@ RF: 0 vitamin E 1,000 unit Capsule 1,000 unit PO DAILY@2199 RF: 0 sennosides [senna] 8.6 mg Tablet 8.6 mg PO DAILY PRN (Reason: Constipation) RF: 0 ascorbic acid (vitamin C) [Vitamin C] 1,000 mg Tablet 1,000 mg PO DAILY@2199 RF: 0 loratadine [Claritin] 10 mg Tablet 10 mg PO DAILY@2199 RF: 0 triamcinolone acetonide 0.1 % ointment 1 applic TOPICAL BID Qty: 30 RF: 0 Discharge Orders: Discharge ED (Routine); Ordered 07/22/21 Ordered By: Emi Callejas Referrals: Shant Ballesteros MD [Primary Care Provider] - Activity Restrictions/Additional Instructions: As we discussed you may treat lesion conservatively by keeping clean with warm soapy water and applying triple antibiotic ointment twice daily. If lesion continues to enlarge, drainage, or becomes more painful you may fill the antibiotics and get started on them. If lesion fails to improve and certainly if lesion begins to worsen please follow-up with primary care for further evaluation. Coding Level of Care Code ED Community Specialist for [facility]
== END 2021-07-22 11:22 | disposition home or self-care (01) ==
PROVIDERS: Emergency Provider Physician Assistant; PCP Family Medicine
DX: L98.9 Disorder of the skin and subcutaneous tissue, unspecified (principal); I10 Essential (primary) hypertension; Z87.891 Personal history of nicotine dependence
CPT/HCPCS: 99281

== ENCOUNTER 2021-09-22 19:58 | Emergency (ER) | payer MEDICARE, SELFPAY ==
[2021-09-22 20:07] VITALS: BP 147/93; PULSE 88; RESP 16; TEMP 36.9; O2SAT 93
--- NOTE | 2021-09-22 20:32 | XRR_ITS ---
PROCEDURE INFORMATION: Exam: XR Left Ankle Exam date and time: 09/22/2021 8:32 PM Age: 66 years old Clinical indication: Pain; Ankle; Left; Prior surgery; Additional info: Pain/previous surgery TECHNIQUE: Imaging protocol: XR Left ankle. Views: 3 or more views. COMPARISON: No relevant prior studies available. FINDINGS: Bones/joints: Surgical arthrodesis of the tibiotalar and subtalar joints of the hindfoot. No loosening of surgical hardware. No acute fractures. No osteolytic bone lesion. Osseous heel spur. Soft tissues: Diffuse soft tissue swelling. No soft tissue gas. XR/XR ankle LT min 3V* [id number] IMPRESSION: Negative for acute osseous abnormality.
--- NOTE | 2021-09-22 20:48 | W.ED.EXTPRO ---
HPI - Extremity Problem General: Chief complaint: Extremity Problem,Nontraumatic Stated complaint: LT ankle pain Time Seen by Provider: 09/22/21 20:08 Source: patient Mode of arrival: wheelchair Limitations: no limitations History of Present Illness: HPI Narrative: Patient is a 66-year-old male who presents to ED today for evaluation of left ankle pain. Patient tells me approximately 4 years ago he had an ankle fusion surgery performed by an orthopedic surgeon in [place] secondary to a foot drop. He states about 2 years ago he began having very brief, sudden, excruciating, sharp pains in the ankle but states that symptoms would last for a few seconds and then subside and he would often go days or weeks without symptoms. Patient states today these are sharp excruciating pains have been happening more and more frequently and states he will get an episode approximately every minute or so and they are unbearable. No new injury or trauma. He has not noticed any redness to the ankle. He has chronic lower extremity edema that he states is at baseline. He has noticed the presence of a blister. MD Complaint: joint pain Onset (ago): hour(s) Pain Consistency: intermittent Location: left and lower extremity Severity scale (1-10): >10 Quality: stabbing and sharp Radiation: none Relieving factors: nothing Exacerbating factors: nothing Associated symptoms: Reports no associated symptoms; Deny fever(s) Review of Systems Const: Denies: fever(s), chills, body aches, fatigue or malaise Musc: Reports: joint pain; Denies: joint redness or joint warmth Skin/Breast: Reports: new lesions (blister to L LE ) Neuro: Reports: other (chronic bilateral LE neuropathy) PFS ED PFSH: Medical History (Updated 09/22/21 @ 23:30 by JUAN Pierce) Allergies Asthma Bilateral knee pain Chronic low back pain Chronic pain syndrome COVID-19 determined by clinical diagnostic criteria Degenerative joint disease (DJD) of lumbar spine Erectile dysfunction Hypertension New onset a-fib Opioid contract exists Osteoarthritis of hands, bilateral Osteoarthritis of knees, bilateral Pain in left shoulder Polycythemia Restrictive lung disease due to kyphoscoliosis Right renal stone Substernal goiter Suspected exposure to asbestos Testosterone deficiency Surgical History H/O ankle fusion H/O arthroscopic knee surgery H/O wrist surgery History of appendectomy History of back surgery History of shoulder surgery S/P ureteral stent placement Family History Grandfather CAD (coronary artery disease) Family/Other Cancer Grandmother Dementia Stroke Mother Lung disease Other Hypertension Denies family history of Rheumatoid arthritis Diabetes Lupus Clotting disorder Hyperlipidemia Chronic kidney disease (CKD) Suicide Anesthesia complication Bleeding disorder Social History Smoking and tobacco status: former smoker Quit status (tobacco): has quit using tobacco Year quit tobacco: 1975 [id number] Second hand smoke exposure: Yes Smoking risk assessment/counseling performed?: Yes Alcohol intake: never Adopted: No Caregiver/support person: No Lives independently: Yes Household members: none Housing: House Marital status: / service: No Current occupational status: retired Pets and animals: Yes History of recent travel: No Current gender identity: Male Physical Exam Const: COMMON NORMALS: no limitations GENERAL APPEARANCE: in distress (when pain occurs ) NUTRITIONAL APPEARANCE: obese morbidly obese ORIENTATION/CONSCIOUSNESS: Yes awake, Yes oriented to person, Yes oriented to place and Yes oriented to time Extremity: OTHER: bilateral L>R LE pitting edema; no calf pain or palpable cords; no redness/warmth to ankle; chronic limited ROM secondary to previous surgery; normal pulses/cap refill; one fluid filled blister to anteriolateral ankle most likely an edema blister/venous stasis blister Neuro: SENSORIUM/ORIENTATION: Yes oriented to person, Yes oriented to place and Yes oriented to time Course Vital Signs: Vital signs: Vital Signs Temperature 98.4 F 09/22/21 20:07 Pulse Rate 88 09/22/21 20:07 Respiratory Rate 16 09/22/21 22:08 Blood Pressure 147/93 09/22/21 20:07 Pulse Oximetry 93 09/22/21 20:07 MDM - Extremity (Nontraumatic) MDM Narrative: Medical decision making narrative: I have tried treating patient with steroids, muscle relaxers, opiate pain medication, and lidocaine patch. He states he is not able to take NSAIDs. Despite my attempt patient continues to have severe exacerbations of pain. Symptoms are suspicious for a right ankle neuritis. Spoke to Dr. Hawthorne who did not recommend anything further from an ED standpoint. Patient states he would like to follow-up with orthopedics here in town instead of traveling back to [place]. I will place information in with case management to make this happen. Will place patient on gabapentin as well as pain medications for his discomfort. Imaging Data^: XR L ankle: Radiologist's impression: [address], [place] [address]ONkn ReportSigned Patient: Charan Voss #: [id number]: 5Acct#:[id number]/Sex: 66 / MADM Date: 09/22/21Loc: ERRoom/Bed:Attending Dr: Ordering Provider/Ordering MD: Emi Callejas Date of Service: 09/22/21 Procedure(s): XR ankle LT min 3V* 20025 Accession Number(s): [id number] Report Number: [id number] PROCEDURE INFORMATION: Exam: XR Left Ankle Exam date and time: 09/22/2021 8:32 PM Age: 66 years old Clinical indication: Pain; Ankle; Left; Prior surgery; Additional info: Pain/previous surgery TECHNIQUE: Imaging protocol: XR Left ankle. Views: 3 or more views. COMPARISON: No relevant prior studies available. FINDINGS: Bones/joints: Surgical arthrodesis of the tibiotalar and subtalar joints of the hindfoot. No loosening of surgical hardware. No acute fractures. No osteolytic bone lesion. Osseous heel spur. Soft tissues: Diffuse soft tissue swelling. No soft tissue gas. XR/XR ankle LT min 3V* [id number] IMPRESSION: Negative for acute osseous abnormality. Dictated By:Suzie Tinajero By:Suzie Tinajero Date/Time:09/22/212156DD/ 31 Discharge Plan Discharge Patient Disposition: Home Clinical Impression: Neuritis of ankle Qualifiers: Laterality: left Qualified Code(s): G57.92 - Unspecified mononeuropathy of left lower limb Condition: Stable Prescriptions: New gabapentin 300 mg capsule 300 mg PO Q8H Qty: 60 RF: 0 tramadol 50 mg tablet 50 mg PO Q6H PRN (Reason: pain) Qty: 14 RF: 0 No Action lisinopril 2.5 mg tablet 2.5 mg PO BID RF: 0 Xarelto 20 mg tablet 20 mg PO DAILY Qty: 30 RF: 5 trazodone 300 mg tablet 300 mg PO BEDTIME@2199 RF: 0 allopurinol 300 mg tablet 300 mg PO DAILY@220 RF: 0 folic acid 1 mg tablet 1 mg PO DAILY@220 RF: 0 bisoprolol-hydrochlorothiazide 10-6.25 mg tablet 1 tab PO DAILY@2199 RF: 0 Hold Instructions: Resume on 10/26/20. multivitamin Tablet 1 tab PO DAILY@2199 RF: 0 biotin 1 mg tablet 1 mg PO DAILY RF: 0 krill oil 500 mg capsule PO DAILY RF: 0 mnuj-ndkxl-quh-D3-hyal-fawad bor 750 mg-100 mg- 25 mcg tablet PO DAILY RF: 0 lycopene 10 mg capsule 10 mg PO DAILY RF: 0 resveratrol 250 mg capsule PO DAILY RF: 0 saw palmetto 500 mg capsule 500 mg PO DAILY RF: 0 cholecalciferol (vitamin D3) 10 mcg/mL (400 unit/mL) drops 10 mcg PO .spray daily RF: 0 diltiazem HCl 120 mg capsule,extended release 24hr 120 mg PO DAILY 30 Days Qty: 30 RF: 5 atorvastatin [Lipitor] 40 mg tablet 40 mg PO DAILY 30 Days Qty: 30 RF: 5 testosterone cypionate 200 mg/mL oil 200 mg IM .EVERY 10 DAYS Qty: 10 RF: 5 Symbicort 80-4.5 mcg/actuation HFA aerosol inhaler 2 puff INHALATION BID@ RF: 0 vitamin E 1,000 unit Capsule 1,000 unit PO DAILY@2199 RF: 0 sennosides [senna] 8.6 mg Tablet 8.6 mg PO DAILY PRN (Reason: Constipation) RF: 0 ascorbic acid (vitamin C) [Vitamin C] 1,000 mg Tablet 1,000 mg PO DAILY@220 RF: 0 loratadine [Claritin] 10 mg Tablet 10 mg PO DAILY@220 RF: 0 triamcinolone acetonide 0.1 % ointment 1 applic TOPICAL BID Qty: 30 RF: 0 Discharge Orders: Discharge ED (Routine); Ordered 09/22/21 Ordered By: Emi Callejas Referrals: Shant Ballesteros MD [Primary Care Provider] - Coding Level of Care Code ED Contract Associate for Chg Fwd Exam Problem Focused
[2021-09-22] MEDS: orphenadrine 30 mg/mL Inj 2 mL 60 MG IM (21:00)
[2021-09-22] MEDS: dexamethasone 10 mg/mL INJ IM (21:01)
[2021-09-22 22:08] VITALS: RESP 16
[2021-09-22] MEDS: HYDROmorphone 1 mg/mL INJ 1 mL IM (22:08)
[2021-09-22] MEDS: gabapentin 300 mg Capsule PO (22:43)
[2021-09-22] MEDS: lidocaine 5% Patch 1 PATCH TOPICAL (22:45)
--- NOTE | 2021-09-25 12:43 | DCPLANNER ---
manager of environmental services had message to schedule a follow up appointment for patient with ortho. manager of environmental services called the ortho clinic, spoke with Pearl, gave clinic patients information. manager of environmental services was told that patients information would be printed and reviewed. Clinic will call patient with appointment information.
--- NOTE | 2021-09-26 07:08 | DCPLANNER ---
Addendum entered by Bina Solis 11/03/21 11:46: Patient had a follow up appointment scheduled for 10.30.21 with ortho - patient did attend appointment. Original Note: Patient has a follow up appointment scheduled for Saturday, October 30, 2021 at 11:[address] Wu at ortho. Clinic will call patient with appointment information.
== END 2021-09-23 00:21 | disposition home or self-care (01) ==
PROVIDERS: Emergency Provider Physician Assistant; PCP Family Medicine
DX: G57.92 Unspecified mononeuropathy of left lower limb (principal); I10 Essential (primary) hypertension; Z87.891 Personal history of nicotine dependence
CPT/HCPCS: 73610; 96372; 99283; J1100; J1170; J2360

== ENCOUNTER → 2021-10-18 11:09 | Outpatient (BNVA) | payer MEDICARE, SELFPAY | PROVIDERS: PCP Family Medicine; Visit Provider Internal Medicine | DX: E04.9 Nontoxic goiter, unspecified (principal); E04.1 Nontoxic single thyroid nodule; Z87.891 Personal history of nicotine dependence | CPT/HCPCS: 99213; 99214 ==

== ENCOUNTER → 2021-10-30 11:18 | Outpatient (BNVA) | payer MEDICARE, SELFPAY | PROVIDERS: PCP Family Medicine; Referring Provider Physician Assistant; Visit Provider Podiatrist Foot & Ankle Surgery | DX: M19.071 Primary osteoarthritis, right ankle and foot (principal); Z46.89 Encounter for fitting and adjustment of other specified devices; M72.2 Plantar fascial fibromatosis; M21.41 Flat foot [pes planus] (acquired), right foot; M21.42 Flat foot [pes planus] (acquired), left foot | CPT/HCPCS: 73630; 97760; L4397 ==

== ENCOUNTER 2021-10-30 13:50 | Outpatient (CLI) | payer MEDICARE, SELFPAY | END 2021-10-30 13:51 | disposition home or self-care (01) | LOC: SPT 13:51 | PROVIDERS: PCP Family Medicine; Visit Provider Podiatrist Foot & Ankle Surgery | DX: Z46.89 Encounter for fitting and adjustment of other specified devices (principal); M72.2 Plantar fascial fibromatosis; M21.41 Flat foot [pes planus] (acquired), right foot; M21.42 Flat foot [pes planus] (acquired), left foot | CPT/HCPCS: 97760; L4397 ==

== ENCOUNTER 2021-11-21 13:14 | Outpatient (CLI) | payer MEDICARE, SELFPAY ==
--- NOTE | 2021-11-21 13:15 | XR_ITS ---
WS: [id number] ABDOMEN: SUPINE FILM HISTORY: RIGHT RENAL STONE COMPARISON: 11/15/2020 Moderate diffuse air distention of the colon. No obstructive pattern. Extensive fusion hardware in th e thoracic and lumbar spines. Right kidney: Partially obscured kidney by GI contents. Again noted is trace calcification just above the RIGHT iliac crest measuring 7 mm. No change in position. Left kidney: Partially obscured by fecal content. XR/XR KUB [id number] IMPRESSION: 1. No change in the 7 mm calcification just above the RIGHT iliac crest. Could be within the RIGHT ureter but more likely is external to the urological syste m. 2. Kidneys are being obscured by overlying GI content.
== END 2021-11-21 13:15 | disposition home or self-care (01) ==
LOC: RAD 13:21
PROVIDERS: PCP Family Medicine; Visit Provider Urology
DX: N20.0 Calculus of kidney (principal); N52.9 Male erectile dysfunction, unspecified
CPT/HCPCS: 74018; 81003; 84153; 84403

== ENCOUNTER 2021-12-06 14:56 | Outpatient (CLI) | payer MEDICARE, SELFPAY | END 2021-12-06 14:57 | disposition home or self-care (01) | LOC: SPT 14:56 | PROVIDERS: PCP Family Medicine; Visit Provider Podiatrist Foot & Ankle Surgery | DX: Z46.89 Encounter for fitting and adjustment of other specified devices (principal); M21.41 Flat foot [pes planus] (acquired), right foot; M21.42 Flat foot [pes planus] (acquired), left foot; M72.2 Plantar fascial fibromatosis | CPT/HCPCS: 97760; L3030 ==

== ENCOUNTER 2022-02-13 13:53 | Outpatient (CLI) | payer MEDICARE, SELFPAY ==
[2022-02-13 15:27] LABS: Testosterone Total 810.9 ng/dL (193-740)
[2022-02-13 16:45] LABS: Basophils # 0.1 10^3/uL (0.0-0.1); Basophils % 0.8 %; Nucleated Red Blood Cells % 0 %
[2022-02-13 17:26] LABS: Eosinophils # 0.2 10^3/uL (0.0-0.8); Eosinophils % 2.8 %; Hematocrit 61.3 % (42.0-52.0); Hemoglobin 18.9 g/dL (11.7-16.6); Lymphocytes # 1.7 10^3/uL (0.8-4.8); Mean Corpuscular HGB Conc 30.8 g/dL (30.0-36.0); Mean Corpuscular Hemoglobin 29.5 pg (28.0-34.0); Mean Corpuscular Volume 95.6 fl (80-94); Mean Platelet Volume 10.2 fL (7.4-10.4); Monocytes % 11.7 %; Neutrophils # 5.24 10^3/uL (1.8-7.7); Neutrophils % 63.2 %; Platelet Count 199 10^3/cmm (130-400); Red Blood Count 6.41 10^6/uL (4.1-5.3); Red Cell Distribution Width 17.8 % (12.1-15.1); White Blood Count 8.3 10^3/uL (4.0-10.0)
== END 2022-02-13 13:54 | disposition home or self-care (01) ==
PROVIDERS: PCP Family Medicine; Visit Provider Urology
DX: R79.89 Other specified abnormal findings of blood chemistry (principal); E29.9 Testicular dysfunction, unspecified; N20.0 Calculus of kidney; E34.9 Endocrine disorder, unspecified; E29.1 Testicular hypofunction
CPT/HCPCS: 36415; 81003; 84403; 85025; 99213

== ENCOUNTER 2022-05-21 11:53 | Outpatient (CLI) | payer MEDICARE, SELFPAY ==
[2022-05-21 13:14] LABS: Basophils # 0.1 10^3/uL (0.0-0.1); Basophils % 0.8 %; Eosinophils # 0.3 10^3/uL (0.0-0.8); Eosinophils % 4.3 %; Hematocrit 63.2 % (42.0-52.0); Hemoglobin 19.4 g/dL (11.7-16.6); Lymphocytes # 1.5 10^3/uL (0.8-4.8); Lymphocytes % 18.7 %; Mean Corpuscular HGB Conc 30.7 g/dL (30.0-36.0); Mean Corpuscular Volume 94.5 fl (80-94); Mean Platelet Volume 10.7 fL (7.4-10.4); Monocytes # 0.7 10^3/uL (0.2-0.9); Monocytes % 8.7 %; Neutrophils # 5.35 10^3/uL (1.8-7.7); Neutrophils % 67.1 %; Nucleated Red Blood Cells % 0 %; Platelet Count 202 10^3/cmm (130-400); Red Blood Count 6.69 10^6/uL (4.1-5.3); Red Cell Distribution Width 16.8 % (12.1-15.1)
[2022-05-21 14:26] LABS: Testosterone Total - Urology 788 ng/mL (300-1000)
== END 2022-05-21 11:54 | disposition home or self-care (01) ==
LOC: LAB 11:55
PROVIDERS: PCP Family Medicine; Visit Provider Urology
DX: R79.89 Other specified abnormal findings of blood chemistry (principal); E34.9 Endocrine disorder, unspecified; N52.9 Male erectile dysfunction, unspecified; N20.0 Calculus of kidney; D75.1 Secondary polycythemia
CPT/HCPCS: 36415; 84403; 85025; 99214

== ENCOUNTER 2022-07-12 10:25 | Outpatient (CLI) | payer MEDICARE, SELFPAY ==
[2022-07-12 11:05] LABS: Basophils # 0.1 10^3/uL (0.0-0.1); Eosinophils # 0.3 10^3/uL (0.0-0.8); Eosinophils % 3.5 %; Hematocrit 62.6 % (42.0-52.0); Hemoglobin 19.7 g/dL (11.7-16.6); Lymphocytes # 1.8 10^3/uL (0.8-4.8); Lymphocytes % 22.2 %; Mean Corpuscular HGB Conc 31.5 g/dL (30.0-36.0); Mean Corpuscular Volume 95.4 fl (80-94); Mean Platelet Volume 9.9 fL (7.4-10.4); Monocytes # 0.9 10^3/uL (0.2-0.9); Monocytes % 10.7 %; Neutrophils # 4.96 10^3/uL (1.8-7.7); Nucleated Red Blood Cells % 0 %; Platelet Count 208 10^3/cmm (130-400); Red Blood Count 6.56 10^6/uL (4.1-5.3); Red Cell Distribution Width 17.5 % (12.1-15.1)
[2022-07-12 11:37] LABS: Testosterone Total 751.6 ng/dL (193-740)
== END 2022-07-12 10:26 | disposition home or self-care (01) ==
LOC: LAB 10:28
PROVIDERS: PCP Family Medicine; Visit Provider Urology
DX: E34.9 Endocrine disorder, unspecified (principal)
CPT/HCPCS: 36415; 84403; 85025

== ENCOUNTER → 2022-07-13 08:12 | Outpatient (BNVA) | payer MEDICARE, SELFPAY | PROVIDERS: PCP Family Medicine; Visit Provider Urology | DX: E34.9 Endocrine disorder, unspecified (principal); N20.0 Calculus of kidney; D75.1 Secondary polycythemia | CPT/HCPCS: 81003; 99213 ==

== ENCOUNTER 2022-07-18 16:05 | Observation (INO) | payer MEDICARE, SELFPAY ==
[2022-07-18] VITALS (8 sets, daily range): BP systolic 96–109; BP diastolic 45–64; PULSE 77–89; RESP 17; TEMP 36.8; O2SAT 85–97; BMI 40.7
--- NOTE | 2022-07-18 16:50 | CTR_ITS ---
PROCEDURE INFORMATION: Exam: CT Chest With Contrast; Diagnostic Exam date and time: 07/18/2022 6:32 PM Age: 67 years old Clinical indication: Abdominal pain; Generalized; Chest pressure; Prior surgery; Surgery date: 6+ months; Surgery type: Appendectomy, ureteral stent, back surgery; Additional info: Severe abd pain and distention TECHNIQUE: Imaging protocol: Diagnostic computed tomography of the chest with contrast. Radiation optimization: All CT scans at this facility use at least one of these dose optimization techniques: automated exposure control; mA and/or kV adjustment per patient size (includes targeted exams where dose is matched to clinical indication); or iterative reconstruction. Contrast material: OMNI 350; Contrast volume: 100 ml; Contrast route: INTRAVENOUS (IV); COMPARISON: CT chest con [id number] 08/01/2020 9:28 AM RADIATION DOSE METRICS: Total DLP (mGy-cm): 1968.86 FINDINGS: Thyroid: Multiple thyroid nodules, greater on the left, the largest measuring 5.7 cm. Dedicated ultrasound follow-up is recommended. Lungs: Mild dependent atelectasis in both lungs. No consolidation. Pleural spaces: Unremarkable. No pneumothorax. No pleural effusion. Heart: Mild coronary artery calcifications. The heart size is normal. Lymph nodes: Unremarkable. No enlarged lymph nodes. Vasculature: Unremarkable. No aortic aneurysm. Bones/joints: Resection of the left 7th rib. Extensive posterior fusion hardware with posterior bony fusion in the thoracic and lumbar spine. Bony fusion of multiple mid and lower thoracic vertebral bodies, possibly ankylosis. No acute fracture. Scoliosis. Soft tissues: Unremarkable. COMMENTS: Consistent with the [employer]'s Incidental Findings Committee white paper (J Am Dg Radiol 2015): In patients aged 35 years and older with an incidental thyroid nodule equal to or greater than 1.[address], MRI or extrathyroidal US, further evaluation with dedicated thyroid US is recommended for patients with normal life expectancy and without comorbidities. For smaller nodules without suspicious features, no further evaluation or follow up is recommended. PROCEDURE INFORMATION: Exam: CT Abdomen And Pelvis With Contrast Exam date and time: 07/18/2022 6:32 PM Age: 67 years old Clinical indication: Abdominal pain; Generalized; Chest pressure; Prior surgery; Surgery date: 6+ months; Surgery type: Appendectomy, ureteral stent, back surgery; Additional info: Severe abd pain and distention TECHNIQUE: Imaging protocol: Computed tomography of the abdomen and pelvis with contrast. Radiation optimization: All CT scans at this facility use at least one of these dose optimization techniques: automated exposure control; mA and/or kV adjustment per patient size (includes targeted exams where dose is matched to clinical indication); or iterative reconstruction. Contrast material: OMNI 350; Contrast volume: 100 ml; Contrast route: INTRAVENOUS (IV); COMPARISON: CT abdomen pelvis wo con [id number] 12/07/2020 11:28 PM RADIATION DOSE METRICS: Total DLP (mGy-cm): 1968.86 FINDINGS: Liver: 1.9 cm hypodense nodule in the right liver lobe. Gallbladder and bile ducts: Normal. No calcified stones. No ductal dilation. Pancreas: Normal. No ductal dilation. Spleen: Normal. No splenomegaly. Adrenal glands: Normal. No mass. Kidneys and ureters: Left renal cyst, Hounsfield units less than 20. No follow-up imaging is recommended. Nonobstructing 5 mm right renal calculus. No hydronephrosis. Stomach and bowel: Fluid distended stomach with air-fluid level. No wall thickening. There are multiple loops of fluid-filled mildly distended proximal and mid small bowel measuring up to 3.9 cm diameter. No transition point is identified. The distal small bowel is normal in caliber. Scattered gas and a small amount of fluid throughout the colon to the rectum. No colonic wall thickening. Appendix: The appendix is not visualized. No secondary signs of appendicitis. Intraperitoneal space: Unremarkable. No free air. No significant fluid collection. Vasculature: Mild arterial calcifications. No aneurysm. Lymph nodes: Unremarkable. No enlarged lymph nodes. Urinary bladder: The urinary bladder is decompressed with mild wall thickening. Reproductive: Mildly enlarged prostate. Bones/joints: Lumbar scoliosis. Extensive posterior fusion hardware in the thoracolumbar spine extending to the S1 level. No fracture. Small lucency in the L2 vertebral body is most likely a hemangioma. Soft tissues: Fat containing left inguinal hernia. CT/CT chest abd pel w con* IMPRESSION: 1. No acute finding in the chest. 2. Thyroid nodules measuring up to 5.7 cm. Ultrasound follow-up recommended. IMPRESSION: 1. Mildly dilated loops of proximal and mid small bowel most likely represents ileus versus infectious or inflammatory enteritis. 2. Fluid distended stomach. NG tube placement should be considered. 3. Mild wall thickening in the urinary bladder may relate to nondistention. Cystitis is not excluded. Clinical correlation recommended. 4. Indeterminate 1.9 cm nodule in the right liver lobe. Further evaluation with non-emergent liver MRI is recommended. (Reference: Bright) References: Bright PISANO, et al. Management of Incidental Liver Lesions on CT: A White Paper of the ACR Incidental Findings Committee. J Am Dg Radiol. 2017;14(11):4857-4594. COMMENTS: Consistent with the [employer]'s Incidental Findings Committee white paper (J Am Dg Radiol 2018): Any incidental renal lesion less than 1 cm or classified as too small to characterize, or any incidental cystic renal lesion characterized as simple-appearing, is likely benign. No follow-up imaging is recommended for these lesions per consensus recommendations based on imaging criteria.
--- NOTE | 2022-07-18 16:53 | W.ED.ABDPA2 ---
HPI - Abdominal Pain General: Chief Complaint: Abdominal Pain Stated Complaint: Abdominal Pain Time Seen by Provider: 07/18/22 16:06 Source: patient and family Mode of arrival: ambulatory Limitations: no limitations History of Present Illness: This patient states that earlier today he developed abdominal pain at or about 7 AM. He states the abdominal pain has been persistent since onset. He is also states that he is noted he has had lower than normal blood pressure today but he states a few days ago he had lower blood pressure as well. He states he feels more bloated and this is collaborated by his . He says the pain comes in waves at times. He states that he ate a couple of bites but it did not improve or change his pain. He states he had some bowel movement earlier this morning but less than normal and has had less urine output than normal today. Denies any radiation to his back or ripping or tearing type pain. He denies any associated chest pain or difficulty breathing. He has had a prior appendectomy as well as an anterior approach to spine stabilization. He has a brief history of smoking as a young adult but has not smoked since that time. He denies any recent falls or trauma. No known exposure to infectious disease. He has had retching a few times but no significant emesis. Has a prior history of a kidney stone that has sounds like its in the pelvis of the kidney and is followed by urology. MD elicited complaint: abdominal pain Location: Diffuse Severity: moderate Quality: cramping and fullness Relieving factors: nothing Associated Symptoms: Denies chills, dysuria, fever(s) and syncope Review of Systems Const: Denies: fever(s), chills or body aches Eyes: Denies: change in vision ENMT: Denies: odynophagia, nasal discharge or nasal congestion Card: Denies: chest pain, palpitations, irregular heart rhythm, edema, syncope or pre-syncope Resp: Denies: dyspnea, productive cough or non-productive cough : Reports: oliguria; Denies: flank pain, difficulty urinating, dysuria or urinary frequency Musc: Reports: extremity pain and joint stiffness; Denies: neck pain or extremity swelling Skin/Breast: Denies: rash or pruritus Neuro: Denies: headache(s), numbness in extremities or weakness in extremities Psych: Denies: anxiety or depression Endo: Denies: polyuria or polydipsia Leif/Lymph: Denies: easy bruising or easy bleeding PFSH ED PFSH: Medical History Afib Allergies Asperger syndrome mild Asthma Bilateral knee pain Chronic low back pain Chronic pain syndrome Chronic sinusitis of both maxillary sinuses COVID-19 determined by clinical diagnostic criteria Degenerative joint disease (DJD) of lumbar spine Erectile dysfunction Gout Hypertension New onset a-fib Opioid contract exists Osteoarthritis of hands, bilateral Osteoarthritis of knees, bilateral Pain in left shoulder Polycythemia Restrictive lung disease due to kyphoscoliosis Right renal stone Substernal goiter Suspected exposure to asbestos Testosterone deficiency On TRT for 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 Surgical History H/O ankle fusion H/O arthroscopic knee surgery H/O wrist surgery History of appendectomy History of back surgery History of shoulder surgery S/P ureteral stent placement Family History Grandfather CAD (coronary artery disease) Family/Other Cancer Grandmother Dementia Stroke Mother Lung disease Other Hypertension Denies family history of Rheumatoid arthritis Diabetes Lupus Clotting disorder Hyperlipidemia Chronic kidney disease (CKD) Suicide Anesthesia complication Bleeding disorder Social History Smoking and tobacco status: former smoker Quit status (tobacco): has quit using tobacco Year quit tobacco: 1975 [id number] Second hand smoke exposure: Yes Smoking risk assessment/counseling performed?: Yes Alcohol intake: never Adopted: No Caregiver/support person: No Lives independently: Yes Household members: none Housing: House Marital status: / service: No Current occupational status: retired Pets and animals: Yes History of recent travel: No Current gender identity: Male Physical Exam Narrative: EXAM NARRATIVE: Patient's cooperative and fluent and goal-directed in his speech. He is uncomfortable at times with episodes of retching. Const: COMMON NORMALS: patient oriented x3 and alert GENERAL APPEARANCE: cooperative and in distress NUTRITIONAL APPEARANCE: overweight HENMT: COMMON NORMALS: normocephalic, Normal nasal mucous membranes and turbinates present, moist oral mucous membranes and oropharynx normal HEAD & SCALP: normocephalic NOSE: Normal nasal mucous membranes and turbinates present Eye: COMMON NORMALS: Equal, round and reactive pupils present, EOMs intact bilaterally, conjunctivae normal and no scleral icterus CONJUNCTIVA: Yes conjunctivae normal PUPIL: Yes Equal, round and reactive pupils present Neck/C-Spine: COMMON NORMALS: full ROM, no JVD and No carotid bruits Chest: COMMONS NORMALS: normal inspection of the chest and normal palpation of entire chest wall Resp: COMMON NORMALS: normal respiratory effort, No retractions, No use of accessory muscles and clear to auscultation bilaterally EFFORT & INSPECTION: Yes able to speak in complete sentences AUSCULTATION: clear to auscultation bilaterally Cardio: COMMON NORMALS: no JVD, regular rhythm, No murmurs present (Cardio) and Peripheral pulses 2+ throughout RHYTHM: regular rhythm PERIPHERAL PULSES: Peripheral pulses 2+ throughout GI: OTHER: He has abdominal distention with hyperresonance to percussion. He has intermittently hyperactive bowel sounds. Mildly diffusely tender. No skin rashes or ecchymosis noted. : COMMON NORMALS: Yes no CVA tenderness BLADDER/KIDNEY EXAM: Yes no CVA tenderness Back/Pelvis: COMMON NORMALS: no CVA tenderness, thoracic and lumbar spine normal to inspection and no thoracic nor lumbar tenderness Extremity: COMMON NORMALS: no calf tenderness and no pedal edema NARRATIVE EXTREMITY EXAM: Decreased range of motion of the left ankle due to joint fusion. No deformity. No joint effusions. No erythema. No pedal edema. No calf tenderness. Neuro: COMMON NORMALS: patient oriented x3, moves all extremities and no focal motor deficits SENSORIUM/ORIENTATION: Yes alert CRANIAL NERVES: Yes CN normal except as noted Psych: COMMON NORMALS: mental status grossly normal and cooperative Skin: COMMON NORMALS: no rashes or lesions noted, no wounds and turgor normal GENERAL SKIN EXAM: no rashes or lesions noted and turgor normal Course Reevaluation(s): Reevaluation #1: The patient subjectively is improved. He still has a distended abdomen, but not had any event emesis since his Reglan. CT scan does not show any signs of obstruction but does have findings consistent with ileus versus enteritis. Bedside ultrasound was used to visualize the urinary bladder. Estimation of approximately somewhere between 150 and 200 mL of fluid appears to be in the bladder at this time. Time: 21:38 Consultations: Consultation #1: Discussed with overnight hospitalist who agreed to place the patient in observation for continued hydration and intervention as clinically indicated. Time: 22:05 Vital Signs: Vital signs: Vital Signs Temperature 98.2 F 07/18/22 16:04 Pulse Rate 85 07/18/22 16:04 Respiratory Rate 17 07/18/22 17:23 Blood Pressure 109/50 07/18/22 16:04 Pulse Oximetry 97 07/18/22 16:04 Oxygen Delivery Me thod 07/18/22 16:04 MDM - Abdominal Pain Medical Decision Making Patient who presented to our emergency department with abdominal distention and abdominal pain that began earlier today at his persisted and progressed throughout the day. Multiple episodes of retching as well as loose stools. No history of fever. Does have a history of atrial fibrillation on a DOAC for that condition for stroke prevention. No history of bloody emesis or bloody diarrhea. No known exposure to infectious disease. Imaging revealed findings consistent with enteritis possible ileus. He has a significant [place] distended stomach on CT scan. He did respond to Reglan with improvement in symptoms. His blood pressures have historically by spouse have been low over the past couple of days not sure this is as a result of his aggressive antihypertension control combined with his weight loss. Soon does not have any evidence of surgical abdomen this evening but I think because of his symptoms it is reasonable for us to continue to hydrate him and follow them to resolution. Lab Data I reviewed the patient's lab results. : 07/18/22 17:43 07/18/22 17:43 Labs/Radiology: Radiology Impressions Chest/Abdomen/Pelvis CT 07/18/22 16:50 IMPRESSION: 1. No acute finding in the chest. 2. Thyroid nodules measuring up to 5.7 cm. Ultrasound follow-up recommended. IMPRESSION: 1. Mildly dilated loops of proximal and mid small bowel most likely represents ileus versus infectious or inflammatory enteritis. 2. Fluid distended stomach. NG tube placement should be considered. 3. Mild wall thickening in the urinary bladder may relate to nondistention. Cystitis is not excluded. Clinical correlation recommended. 4. Indeterminate 1.9 cm nodule in the right liver lobe. Further evaluation with non-emergent liver MRI is recommended. (Reference: Bright) References: Bright PISANO, et al. Management of Incidental Liver Lesions on CT: A White Paper of the ACR Incidental Findings Committee. J Am Dg Radiol. 2017;14(11):1864-9764. COMMENTS: Consistent with the [employer] [employer]'s Incidental Findings Committee white paper (J Am Dg Radiol 2018): Any incidental renal lesion less than 1 cm or classified as too small to characterize, or any incidental cystic renal lesion characterized as simple-appearing, is likely benign. No follow-up imaging is recommended for these lesions per consensus recommendations based on imaging criteria. Laboratory Results WBC 12.4 10^3/uL (4.0-10.0) H 07/18/22 17:43 RBC 6.32 10^6/uL (4.1-5.3) H 07/18/22 17:43 Hgb 19.1 g/dL (11.7-16.6) H 07/18/22 17:43 Hct 61.6 % (42.0-52.0) H 07/18/22 17:43 MCV 97.5 fl (80-94) H 07/18/22 17:43 MCH 30.2 pg (28.0-34.0) 07/18/22 17:43 MCHC 31.0 g/dL (30.0-36.0) 07/18/22 17:43 RDW 17.1 % (12.1-15.1) H 07/18/22 17:43 Plt Count 212 10^3/cmm (130-400) 07/18/22 17:43 MPV 10.4 fL (7.4-10.4) 07/18/22 17:43 Neut % (Auto) 82.3 % 07/18/22 17:43 Lymph % (Auto) 5.8 % 07/18/22 17:43 [place] % (Auto) 9.0 % 07/18/22 17:43 Eos % (Auto) 2.1 % 07/18/22 17:43 Baso % (Auto) 0.2 % 07/18/22 17:43 Neut # (Auto) 10.18 10^3/uL (1.8-7.7) H 07/18/22 17:43 Lymph # (Auto) 0.7 10^3/uL (0.8-4.8) L 07/18/22 17:43 [place] # (Auto) 1.1 10^3/uL (0.2-0.9) H 07/18/22 17:43 Eos # (Auto) 0.3 10^3/uL (0.0-0.8) 07/18/22 17:43 Baso # (Auto) 0.0 10^3/uL (0.0-0.1) 07/18/22 17:43 Nucleated RBC % (auto) 0.2 % 07/18/22 17:43 Nucleated RBCs # 0.0 /100WBC 07/18/22 17:43 Sodium 136 mmol/L (136-145) 07/18/22 17:43 Potassium 4.1 mmol/L (3.5-5.1) 07/18/22 17:43 Chloride 98 mmol/L (98-107) 07/18/22 17:43 Carbon Dioxide 29 mmol/L (22-29) 07/18/22 17:43 Anion Gap 13.1 (5-19) 07/18/22 17:43 BUN 15 mg/dL (8-23) 07/18/22 17:43 Creatinine 1.2 mg/dL (0.7-1.2) 07/18/22 17:43 GFR Calculation 60.4 mL/min (90-130) L 07/18/22 17:43 Glucose 142 mg/dL (65-115) H 07/18/22 17:43 Calculated Osmolality 285 mOsm/kg (285-295) 07/18/22 17:43 Calcium 8.6 mg/dL (8.5-10.5) 07/18/22 17:43 Total Bilirubin 0.8 mg/dL (0.15-1.2) 07/18/22 17:43 AST 16 U/L (0-40) 07/18/22 17:43 ALT 18 U/L (0-41) 07/18/22 17:43 Alkaline Phosphatase 62 U/L (40-130) 07/18/22 17:43 Total Protein 7.1 g/dL (6.6-8.7) 07/18/22 17:43 Albumin 3.9 g/dL (3.5-5.2) 07/18/22 17:43 Globulin 3.2 g/dL (1.3-4.6) 07/18/22 17:43 Lipase 38 U/L (13-60) 07/18/22 17:43 Urine Color Yun (Yellow) 07/18/22 17:15 Urine Appearance Clear (CLEAR) 07/18/22 17:15 Urine pH 5 (5-7) 07/18/22 17:15 Ur Specific [place] 1.025 (1.005-1.030) 07/18/22 17:15 Urine Protein 2+ (Negative) H 07/18/22 17:15 Urine Glucose (UA) Norm (Normal) 07/18/22 17:15 Urine Ketones 1+ (Negative) H 07/18/22 17:15 Urine Blood 3+ (Negative) H 07/18/22 17:15 Urine Nitrate Negative (Negative) 07/18/22 17:15 Urine Bilirubin 1+ (Negative) H 07/18/22 17:15 Urine Urobilinogen Neg mg/dL (Negative) 07/18/22 17:15 Ur Leukocyte Esterase Trace (Negative) H 07/18/22 17:15 Urine RBC 25-40 /hpf (0-2) H 07/18/22 17:15 Urine WBC 0-4 /hpf (0-5) H 07/18/22 17:15 Ur Squamous Epith Cells None /hpf (0-5) 07/18/22 17:15 Amorphous Sediment Not Reportable 07/18/22 17:15 Urine Bacteria None /hpf (NONE) 07/18/22 17:15 Urine Mucus 2+ /hpf 07/18/22 17:15 EKG Data EKG 1: I personally reviewed and interpreted this EKG as follows: Interpretation: Ventricular rate is 88 bpm. Since underlying rhythm is consistent with atrial fibrillation. No acute ST-T wave changes does have some nonspecific discordance of T wave in anterior precordial lead V3 but otherwise no changes. This is essentially unchanged from prior EKGs available within the system. Discharge Plan Discharge Patient Disposition: Placed in Observation Clinical Impression: Enteritis, Atrial fibrillation, chronic Condition: Stable Prescriptions: No Action lisinopril 2.5 mg tablet 5 mg PO BID Label Comments: not started yet (DME) Custom Molded Orthotics See Rx Instructions .Route .MEDSUPPLY Qty: 1 0RF Rx Instructions: As directed (DME) Night splint to Right See Rx Instructions .Route .MEDSUPPLY Qty: 1 0RF Rx Instructions: As directed trazodone 300 mg tablet 300 mg PO BEDTIME allopurinol 300 mg tablet 300 mg PO DAILY@2199 folic acid 1 mg tablet 1 mg PO DAILY@2199 multivitamin Tablet 1 tab PO DAILY@2199 biotin 1 mg tablet 1 mg PO DAILY [id number]-hyal-[id number] bor 750 mg-100 mg- 25 mcg tablet 1 tab PO DAILY lycopene 10 mg capsule 10 mg PO DAILY Rx Instructions: administer after a meal resveratrol 250 mg capsule 250 mg PO DAILY saw palmetto 500 mg capsule 500 mg PO DAILY Rx Instructions: give with food (meal/snack) cholecalciferol (vitamin D3) 10 mcg/mL (400 unit/mL) drops 10 mcg PO .spray daily lovastatin 40 mg tablet 40 mg PO DAILY melatonin 3 mg capsule 3 mg PO BEDTIME tadalafil 20 mg tablet 20 mg PO DAILY PRN (Reason: sexual activity) Qty: 20 12RF Rx Instructions: administer approximately 30min before sexual activity; NO NITROGLYCERIN! sulfamethoxazole-trimethoprim [Bactrim DS] 800-160 mg tablet 1 tab PO BID Qty: 20 0RF Symbicort 80-4.5 mcg/actuation HFA aerosol inhaler 2 puff INHALATION BID@ Qty: 10.2 3RF testosterone cypionate 200 mg/mL oil 120 mg IM Q7D Qty: 10 5RF Rx Instructions: ON TUESDAYS vitamin E 1,000 unit Capsule 1,000 unit PO DAILY@2199 sennosides [senna] 8.6 mg Tablet 8.6 mg PO DAILY PRN (Reason: Constipation) ascorbic acid (vitamin C) [Vitamin C] 1,000 mg Tablet 1,000 mg PO DAILY@2199 loratadine [Claritin] 10 mg tablet 10 mg PO DAILY@2199 triamcinolone acetonide 0.1 % ointment 1 applic TOPICAL BID Qty: 30 0RF bisoprolol-hydrochlorothiazide 10-6.25 mg tablet 1 tab PO DAILY ketoconazole 2 % shampoo 1 applic TOPICAL DAILY PRN (Reason: Dry Skin) Referrals: Shant Ballesteros MD [Primary Care Provider] - Coding Level of Care Code ED Head Of Business Development for Chg Fwd Exam Comprehensive
[2022-07-18] MEDS: sodium chloride 0.9% 1,000 ML 999 ML IV (17:23)
[2022-07-18] MEDS: ondansetron 2 mg/ML SDV 2 mL 4 MG IVP (17:23)
[2022-07-18] MEDS: fentaNYL 50 mcg/mL INJ 2mL IVP (17:23)
--- NOTE | 2022-07-18 17:45 | ECG_ITS ---
[facility] Test Date: 2022-07-18 Pat Name: Charan Voss Department: Room: Gender: Male Load Dropper: : 1955 Requested By: George Murray Order Number: [id number] Richard MD: Raiza Orourke M.D. Measurements Intervals [place] Rate: 88 P: [place]: QRS: 18 QRSD: 118 T: 187 QT: 359 QTc: 436 Interpretive Statements ATRIAL FIBRILLATION ANTEROSEPTAL MYOCARDIAL INFARCTION , OF INDETERMINATE AGE [40+ ms Q WAVE IN V1-V4] MODERATE T-WAVE ABNORMALITY, CONSIDER INFERIOR ISCHEMIA [-0.1+ mV T-WAVE IN II/aVF] Compared to ECG 10/18/2020 13:20:23 Myocardial infarct finding now present Possible ischemia now present Intraventricular conduction delay no longer present T-wave abnormality still present Electronically Signed On 07-18-2022 22:45:26 CDT by Raiza Orourke M.D. [id number]
[2022-07-18 18:01] LABS: Eosinophils # 0.3 10^3/uL (0.0-0.8); Eosinophils % 2.1 %
[2022-07-18 18:06] LABS: Basophils % 0.2 %; Hematocrit 61.6 % (42.0-52.0); Hemoglobin 19.1 g/dL (11.7-16.6); Lymphocytes # 0.7 10^3/uL (0.8-4.8); Lymphocytes % 5.8 %; Mean Corpuscular Hemoglobin 30.2 pg (28.0-34.0); Mean Corpuscular Volume 97.5 fl (80-94); Mean Platelet Volume 10.4 fL (7.4-10.4); Monocytes # 1.1 10^3/uL (0.2-0.9); Neutrophils # 10.18 10^3/uL (1.8-7.7); Neutrophils % 82.3 %; Nucleated Red Blood Cells % 0.2 %; Platelet Count 212 10^3/cmm (130-400); Red Blood Count 6.32 10^6/uL (4.1-5.3); Red Cell Distribution Width 17.1 % (12.1-15.1); White Blood Count 12.4 10^3/uL (4.0-10.0)
[2022-07-18 18:12] LABS: Urine Appearance Clear (CLEAR); Urine Color Amber (Yellow)
[2022-07-18 18:13] LABS: Add Urine Microscopic? YES; Bilirubin Urine 1+ (Negative); Blood Urine 3+ (Negative); Glucose Urine UA Norm (Normal); Ketones Urine 1+ (Negative); Leukocyte Esterase Urine Trace (Negative); Nitrate Urine Negative (Negative); Protein Urine 2+ (Negative); Specific Gravity, Urine 1.025 (1.005-1.030); Urobilinogen Urine Neg (Negative); pH Urine 5 (5-7)
[2022-07-18 18:16] LABS: Alanine Aminotransferase 18 U/L (0-41); Albumin Level 3.9 g/dL (3.5-5.2); Alkaline Phosphatase 62 U/L (40-130); Anion Gap 13.1 (5-19); Aspartate Amino Transferase 16 U/L (0-40); Blood Urea Nitrogen 15 mg/dL (8-23); Calcium 8.6 mg/dL (8.5-10.5); Carbon Dioxide 29 mmol/L (22-29); Chloride 98 mmol/L (98-107); Globulin 3.2 g/dL (1.3-4.6); Glomerular Filtration Rate 60.4 mL/min (90-130); Glucose 142 mg/dL (65-115); Lipase 38 U/L (13-60); Osmolality Calculated 285 mOsm/kg (285-295); Potassium 4.1 mmol/L (3.5-5.1); Sodium 136 mmol/L (136-145); Total Bilirubin 0.8 mg/dL (0.15-1.2); Total Protein 7.1 g/dL (6.6-8.7)
[2022-07-18] MEDS: iohexol 350 mg/mL 100 mL Btl IV (18:27)
[2022-07-18 18:39] LABS: Mucus Urine 2+ /hpf; RBC Urine 25-40 /hpf (0-2); WBC Urine 0-4 /hpf (0-5)
[2022-07-18 18:40] LABS: Add Urine Culture? No
[2022-07-18] MEDS: metoclopramide 5 mg/mL SDV 2 mL 10 MG IVP (21:46)
[2022-07-18] MEDS: lactated ringers 1,000 ML 150 ML IV (21:47)
--- NOTE | 2022-07-18 22:45 | PC.NURSE ---
Patient given iv fentanyl at 1723, sleeping, SAT's noted to have dropped below 90, oxygen per NC @ 2L placed. Patient does report that he wears cpap at home.
--- NOTE | 2022-07-18 22:58 | PC.NURSE ---
Attempted to call report, no one available at this time.
--- NOTE | 2022-07-18 23:24 | P.HP_ITS ---
Providers/Chief Complaint Admitting Physician: Bernadine Patel MD Primary Care Provider: Shant Ballesteros MD Chief Complaint: Abdominal Pain History of Present Illness Charan Voss is a 67 year old male with past medical history as noted below presenting to the emergency room today for abdominal pain nausea and vomiting. Symptoms started suddenly at 7 AM this morning. He was in his usual state of health prior to this. States that he started having some abdominal pain, he was able to eat a few cookies and then go back to bed. However when he woke up by 10 AM his symptoms got worse. Abdominal pain was located in the epigastric area, nonradiating, associated with nausea. Contents of the vomitus were clear fluid. [place] as a cramping type of pain. Pain and nausea continue to build up by afternoon around 2:00 at which point patient presented into the emergency room. He had 1 bowel movement this morning. Has not had any diarrhea. He is passing flatus currently. When EMS arrived he was noted to be hypotensive with blood pressure 80/60, since arrival at the ER his blood pressure has been soft between 90-100 systolic. He denies any chest pain dyspnea palpitations or syncope. States he has a very dry mouth. No alteration in taste or smell. CT of his abdomen pelvis today shows mildly dilated loops of proximal and mid small bowel and a fluid distended stomach, likely representing ileus versus infectious or inflammatory enteritis. Patient had food at a restaurant last night, it included brisket mashed potatoes and potato salad. There were 5 other people in his dining democrat, he does not know if anybody else has similar symptoms as him. Denies any dysuria. No history of abdominal procedures in the past except appendectomy at age 12. Denies any fever or chills Review of Systems General: Reports: 10 or more systems reviewed and unremarkable except in HPI and below Const: Denies: fever(s), chills or body aches Eyes: Denies: change in vision, blurry vision or photophobia ENMT: Reports: hoarseness; Denies: throat pain, enlarged tonsils, odynophagia or nasal congestion Card: Denies: chest pain, palpitations, irregular heart rhythm, edema, swelling of feet/ankles, lightheadedness, pre-syncope, dyspnea on exertion or orthopnea Resp: Denies: dyspnea, productive cough, non-productive cough, wheezing, stridor, pain on inspiration, change in phlegm color, hemoptysis or chest congestion GI: Denies: abdominal pain, nausea, vomiting, hematemesis, coffee ground emesis, dysphagia, heartburn, diarrhea, constipation, GI cramping, change in stool character, hematochezia or melena : Denies: flank pain, dysuria, urinary frequency, urinary urgency, urinary hesitancy or hematuria Musc: Denies: neck pain, back pain, extremity pain, joint swelling, joint warmth or deformity Neuro: Denies: headache(s), numbness in extremities, weakness in extremities, sensory changes, difficulty walking, frequent falls, dizziness, vertigo, behavioral changes, Slurred speech present or seizure-like activity Psych: Denies: anxiety, depression, suicidal ideation or homicidal ideation Endo: Denies: polyuria, polydipsia, tired all the time, cold intolerance or hot flashes Leif/Lymph: Denies: easy bruising or easy bleeding Medications/Allergies Home Medications Medication Instructions Recorded Confirmed Last Taken Type allopurinol 300 mg tablet 300 mg PO DAILY@219910/15/19 07/18/22 07/17/22 History folic acid 1 mg tablet 1 mg PO DAILY@219910/15/19 07/18/22 07/17/22 History multivitamin 1 tab PO DAILY@219910/15/19 07/18/22 07/17/22 History trazodone 300 mg tablet 300 mg PO BEDTIME 10/15/19 07/18/22 07/17/22 History ascorbic acid (vitamin C) 1,000 mg 1,000 mg PO DAILY@219910/27/19 07/18/22 07/17/22 History tablet (Vitamin C) sennosides 8.6 mg tablet (senna) 8.6 mg PO DAILY PRN Constipation 10/27/19 07/18/22 10/26/19 History vitamin E 670 mg (1,000 unit) 1,000 unit PO DAILY@219910/27/19 07/18/22 07/17/22 History capsule triamcinolone acetonide 0.1 % 1 applic topical BID apply to 05/25/20 07/18/22 Unknown Rx topical ointment affected area #30 grams biotin 1 mg tablet 1 mg PO DAILY 11/15/20 07/18/22 07/18/22 History cholecalciferol (vitamin D3) 10 10 mcg PO .spray daily 11/15/20 07/18/22 07/18/22 History mcg/mL (400 unit/mL) oral drops glucosamine 750 mg-chondroit 100 1 tab PO DAILY 11/15/20 07/18/22 07/18/22 History mg-msm-D3 25 tyt-crlu-ohc bor tablet lycopene 10 mg capsule 10 mg PO DAILY 11/15/20 07/18/22 07/18/22 History resveratrol 250 mg capsule 250 mg PO DAILY 11/15/20 07/18/22 07/18/22 History saw palmetto 500 mg capsule 500 mg PO DAILY 11/15/20 07/18/22 07/18/22 History Custom Molded Orthotics #1 ea 10/30/21 07/18/22 Unknown Rx Night splint to Right #1 ea 10/30/21 07/18/22 Unknown Rx lisinopril 2.5 mg tablet 5 mg PO BID 11/21/21 07/18/22 07/18/22 History loratadine 10 mg tablet (Claritin) 10 mg PO DAILY@2200 11/21/21 07/18/22 07/17/22 History lovastatin 40 mg tablet 40 mg PO DAILY 11/21/21 07/18/22 07/18/22 History budesonide-formoterol HFA 80 2 puff inhalation BID@ #10.2 01/19/22 07/18/22 07/18/22 Rx mcg-4.5 mcg/actuation aerosol grams inhaler (Symbicort) sulfamethoxazole 800 1 tab PO BID chronic sinusitis #20 04/17/22 07/18/22 Unknown Rx mg-trimethoprim 160 mg tablet tabs (Bactrim DS) melatonin 3 mg capsule 3 mg PO BEDTIME 05/21/22 07/18/22 07/17/22 History tadalafil 20 mg tablet 20 mg PO DAILY PRN sexual activity 05/21/22 07/18/22 Unknown Rx #20 tabs testosterone cypionate 200 mg/mL 120 mg (0.6 mL) IM Q7D #10 mL 06/21/22 07/18/22 07/17/22 Rx intramuscular oil bisoprolol 10 1 tab PO DAILY 07/18/22 07/18/22 07/18/22 History mg-hydrochlorothiazide 6.25 mg tablet ketoconazole 2 % shampoo 1 applic topical DAILY PRN Dry Skin 07/18/22 07/18/22 Unknown History Allergies Allergy/AdvReac Type Severity Reaction Status Date / Time oats Allergy DIARRHEA Verified 07/18/22 19:01 oxycodone Allergy N/V Verified 07/18/22 19:01 apixaban [From Eliquis] AdvReac Severe Headaches Verified 07/18/22 19:01 caffeine AdvReac Unknown PALPITATION Verified 07/18/22 19:01 S apple AdvReac DIARRHEA, Verified 07/18/22 19:01 VOMITING AND CRAMPING egg AdvReac DIARRHEA, Verified 07/18/22 19:01 VOMITING AND STOMACH CRAMPING meperidine [From Demerol] AdvReac EXCESSIVE Verified 07/18/22 19:01 SEDATION morphine AdvReac HALLUCINATI Verified 07/18/22 19:01 ONS berries Allergy Unknown Uncoded 07/13/22 08:24 FRYE AdvReac DIARRHEA Uncoded 07/13/22 08:24 PFSH Acute PFSH: Medical History Afib Allergies Asperger syndrome mild Asthma Bilateral knee pain Chronic low back pain Chronic pain syndrome Chronic sinusitis of both maxillary sinuses COVID-19 determined by clinical diagnostic criteria Degenerative joint disease (DJD) of lumbar spine Erectile dysfunction Gout Hypertension New onset a-fib Opioid contract exists Osteoarthritis of hands, bilateral Osteoarthritis of knees, bilateral Pain in left shoulder Polycythemia Restrictive lung disease due to kyphoscoliosis Right renal stone Substernal goiter Suspected exposure to asbestos Testosterone deficiency On TRT for 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 Surgical History H/O ankle fusion H/O arthroscopic knee surgery H/O wrist surgery History of appendectomy History of back surgery History of shoulder surgery S/P ureteral stent placement Family History Grandfather CAD (coronary artery disease) Family/Other Cancer Grandmother Dementia Stroke Mother Lung disease Other Hypertension Denies family history of Rheumatoid arthritis Diabetes Lupus Clotting disorder Hyperlipidemia Chronic kidney disease (CKD) Suicide Anesthesia complication Bleeding disorder Social History Smoking and tobacco status: former smoker Quit status (tobacco): has quit using tobacco Year quit tobacco: 1975 [id number] Second hand smoke exposure: Yes Smoking risk assessment/counseling performed?: Yes Alcohol intake: never Adopted: No Caregiver/support person: No Lives independently: Yes Household members: none Housing: House Marital status: / service: No Current occupational status: retired Pets and animals: Yes History of recent travel: No Current gender identity: Male Vitals/I&O/Wt Last Vital Signs Temp 98.2 F 07/18/22 23:08 Pulse 89 07/18/22 23:08 Resp 17 07/18/22 23:08 BP 97/64 07/18/22 23:08 Pulse Ox 91 07/18/22 23:08 O2 Del Method 07/18/22 23:06 O2 Flow Rate 2 07/18/22 23:06 07/18/22 07/18/22 07/19/22 14:59 22:59 06:59 Intake Total 1000 / 1000 Balance 1000 / 1000 Weight last 48 hrs Weight 151.953 kg Physical Exam Narrative: General: No acute distress, AO x3, dry tongue and mucus membranes HEENT: PERRLA, pupils bilaterally equal and reactive, pallors not present Chest: Normal vesicular breath sounds, no added sounds, equal good air entry bilaterally CVS: S1-S2 regular, no murmurs, no tachycardia, no gallops, no rubs Abdomen: Soft, nontender, no organomegaly, bowel sounds present Neuro: No focal deficits, no facial deformity, AO x3, power 5/5 in all limbs Data : 07/18/22 17:43 07/18/22 17:43 Other Labs: Radiology Impressions Chest/Abdomen/Pelvis CT 07/18/22 16:50 IMPRESSION: 1. No acute finding in the chest. 2. Thyroid nodules measuring up to 5.7 cm. Ultrasound follow-up recommended. IMPRESSION: 1. Mildly dilated loops of proximal and mid small bowel most likely represents ileus versus infectious or inflammatory enteritis. 2. Fluid distended stomach. NG tube placement should be considered. 3. Mild wall thickening in the urinary bladder may relate to nondistention. Cystitis is not excluded. Clinical correlation recommended. 4. Indeterminate 1.9 cm nodule in the right liver lobe. Further evaluation with non-emergent liver MRI is recommended. (Reference: Bright) References: Bright PISANO, et al. Management of Incidental Liver Lesions on CT: A White Paper of the ACR Incidental Findings Committee. J Am Dg Radiol. 2017;14(11):4734-6935. COMMENTS: Consistent with the [place] [employer]'s Incidental Findings Committee white paper (J Am Dg Radiol 2018): Any incidental renal lesion less than 1 cm or classified as too small to characterize, or any incidental cystic renal lesion characterized as simple-appearing, is likely benign. No follow-up imaging is recommended for these lesions per consensus recommendations based on imaging criteria. Laboratory Results WBC 12.4 10^3/uL (4.0-10.0) H 07/18/22 17:43 RBC 6.32 10^6/uL (4.1-5.3) H 07/18/22 17:43 Hgb 19.1 g/dL (11.7-16.6) H 07/18/22 17:43 Hct 61.6 % (42.0-52.0) H 07/18/22 17:43 MCV 97.5 fl (80-94) H 07/18/22 17:43 MCH 30.2 pg (28.0-34.0) 07/18/22 17:43 MCHC 31.0 g/dL (30.0-36.0) 07/18/22 17:43 RDW 17.1 % (12.1-15.1) H 07/18/22 17:43 Plt Count 212 10^3/cmm (130-400) 07/18/22 17:43 MPV 10.4 fL (7.4-10.4) 07/18/22 17:43 Neut % (Auto) 82.3 % 07/18/22 17:43 Lymph % (Auto) 5.8 % 07/18/22 17:43 [place] % (Auto) 9.0 % 07/18/22 17:43 Eos % (Auto) 2.1 % 07/18/22 17:43 Baso % (Auto) 0.2 % 07/18/22 17:43 Neut # (Auto) 10.18 10^3/uL (1.8-7.7) H 07/18/22 17:43 Lymph # (Auto) 0.7 10^3/uL (0.8-4.8) L 07/18/22 17:43 [place] # (Auto) 1.1 10^3/uL (0.2-0.9) H 07/18/22 17:43 Eos # (Auto) 0.3 10^3/uL (0.0-0.8) 07/18/22 17:43 Baso # (Auto) 0.0 10^3/uL (0.0-0.1) 07/18/22 17:43 Nucleated RBC % (auto) 0.2 % 07/18/22 17:43 Nucleated RBCs # 0.0 /100WBC 07/18/22 17:43 Sodium 136 mmol/L (136-145) 07/18/22 17:43 Potassium 4.1 mmol/L (3.5-5.1) 07/18/22 17:43 Chloride 98 mmol/L (98-107) 07/18/22 17:43 Carbon Dioxide 29 mmol/L (22-29) 07/18/22 17:43 Anion Gap 13.1 (5-19) 07/18/22 17:43 BUN 15 mg/dL (8-23) 07/18/22 17:43 Creatinine 1.2 mg/dL (0.7-1.2) 07/18/22 17:43 GFR Calculation 60.4 mL/min (90-130) L 07/18/22 17:43 Glucose 142 mg/dL (65-115) H 07/18/22 17:43 Calculated Osmolality 285 mOsm/kg (285-295) 07/18/22 17:43 Lactic Acid 1.5 mmol/L (0.5-2.2) 07/18/22 23:49 Calcium 8.6 mg/dL (8.5-10.5) 07/18/22 17:43 Total Bilirubin 0.8 mg/dL (0.15-1.2) 07/18/22 17:43 AST 16 U/L (0-40) 07/18/22 17:43 ALT 18 U/L (0-41) 07/18/22 17:43 Alkaline Phosphatase 62 U/L (40-130) 07/18/22 17:43 Troponin T Baseline 27 ng/L (0-15) H 07/18/22 23:49 Total Protein 7.1 g/dL (6.6-8.7) 07/18/22 17:43 Albumin 3.9 g/dL (3.5-5.2) 07/18/22 17:43 Globulin 3.2 g/dL (1.3-4.6) 07/18/22 17:43 Lipase 38 U/L (13-60) 07/18/22 17:43 Urine Color Yun (Yellow) 07/18/22 17:15 Urine Appearance Clear (CLEAR) 07/18/22 17:15 Urine pH 5 (5-7) 07/18/22 17:15 Ur Specific [place] 1.025 (1.005-1.030) 07/18/22 17:15 Urine Protein 2+ (Negative) H 07/18/22 17:15 Urine Glucose (UA) Norm (Normal) 07/18/22 17:15 Urine Ketones 1+ (Negative) H 07/18/22 17:15 Urine Blood 3+ (Negative) H 07/18/22 17:15 Urine Nitrate Negative (Negative) 07/18/22 17:15 Urine Bilirubin 1+ (Negative) H 07/18/22 17:15 Urine Urobilinogen Neg mg/dL (Negative) 07/18/22 17:15 Ur Leukocyte Esterase Trace (Negative) H 07/18/22 17:15 Urine RBC 25-40 /hpf (0-2) H 07/18/22 17:15 Urine WBC 0-4 /hpf (0-5) H 07/18/22 17:15 Ur Squamous Epith Cells None /hpf (0-5) 07/18/22 17:15 Amorphous Sediment Not Reportable 07/18/22 17:15 Urine Bacteria None /hpf (NONE) 07/18/22 17:15 Urine Mucus 2+ /hpf 07/18/22 17:15 A&P Assessment and plan (1) Ileus: (2) Gastroenteritis: (3) Dehydration: (4) Intractable nausea and vomiting: Plan 67-year-old male with past medical history as above, presenting today with complaints of abdominal pain nausea vomiting, noted to be clinically dehydrated with soft blood pressures. Will admit in observation. Clinically picture appears to be consistent with possible viral gastroenteritis and resulting ileus. Less likely to be bacterial given absence of fever and benign abdominal exam, however given soft blood pressure for now would cover empirically with antibiotics including ceftriaxone and metronidazole. Check enteric bacterial PCR panel. Currently unable to tolerate p.o. intake. We will keep n.p.o. for bowel rest. Zofran 4 mg IV every 8 hours for symptomatic management. IV fluid normal saline at 75 cc an hour as patient appears to be dehydrated. Holding his home doses of antihypertensive including bisoprolol HCTZ. Attestations Medical Necessity Statement*: Anticipate less than 2 midnight admission for IV hydration, symptomatic management of gastroenteritis and ileus . Coding Level of Care Code Acute [place] [employer] for [facility] Diagnoses Ileus K56.7 Gastroenteritis K52.9 Dehydration E86.0 Intractable nausea and vomiting R11.2
--- NOTE | 2022-07-18 23:50 | ECG_ITS ---
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 Measurements Intervals [place] Rate: 79 P: [place]: QRS: -15 QRSD: 108 T: 101 QT: 352 QTc: 404 Interpretive Statements ATRIAL FIBRILLATION POSSIBLE ANTERIOR MYOCARDIAL INFARCTION , OF INDETERMINATE AGE [30 ms Q WAVE IN V3/V4, OR R < 0.2 mV IN V4] Compared to ECG 07/18/2022 17:45:46 T-wave abnormality no longer present Possible ischemia no longer present Myocardial infarct finding still present Electronically Signed On 07-19-2022 11:07:49 CDT by Lance Feliz M.D. [id number]
[2022-07-18] MEDS: cefTRIAXone 1,000 MG in sodium chloride 0.9% (plus) 50 ML 100 MG IV (23:53)
[2022-07-18] MEDS: trazodone 150 mg Tablet 300 MG PO (23:53)
[2022-07-19] VITALS (8 sets, daily range): BP systolic 78–118; BP diastolic 46–82; PULSE 83–120; RESP 15–20; TEMP 36.6–37.3; O2SAT 90–96
[2022-07-19 00:15] LABS: Troponin(5th) Baseline 27 ng/L (0-15)
[2022-07-19 00:17] LABS: Lactic Sepsis W/Reflex 1.5 mmol/L (0.5-2.2)
[2022-07-19] MEDS: acetaminophen 325 mg Tablet 650 MG PO ×3 (01:14→17:13)
--- NOTE | 2022-07-19 01:23 | ECG_ITS ---
[facility] Test Date: 2022-07-19 Pat Name: Charan Voss Department: Room: 252 Gender: Male Media Technician: : 1955 Requested By: Bernadine Patel Order Number: [id number] Hilary MD: Lance Feliz M.D. Measurements Intervals [place] Rate: 80 P: [place]: QRS: -22 QRSD: 109 T: 100 QT: 362 QTc: 418 Interpretive Statements ATRIAL FIBRILLATION POSSIBLE ANTERIOR MYOCARDIAL INFARCTION , OF INDETERMINATE AGE [30 ms Q WAVE IN V3/V4, OR R < 0.2 mV IN V4] Compared to ECG 07/18/2022 23:50:27 No significant changes Electronically Signed On 07-19-2022 11:09:26 CDT by Lance Feliz M.D. [email or web address]/store/[id number]
[2022-07-19 04:26] LABS: Basophils % 0.4 %; Eosinophils # 0.2 10^3/uL (0.0-0.8); Eosinophils % 2.2 %; Hematocrit 58.7 % (42.0-52.0); Hemoglobin 18.1 g/dL (11.7-16.6); Lymphocytes # 1.1 10^3/uL (0.8-4.8); Lymphocytes % 11.2 %; Mean Corpuscular HGB Conc 30.8 g/dL (30.0-36.0); Mean Corpuscular Hemoglobin 30.3 pg (28.0-34.0); Mean Corpuscular Volume 98.2 fl (80-94); Mean Platelet Volume 11.1 fL (7.4-10.4); Monocytes # 1.2 10^3/uL (0.2-0.9); Monocytes % 12.7 %; Neutrophils # 7.03 10^3/uL (1.8-7.7); Neutrophils % 72.9 %; Nucleated Red Blood Cells % 0 %; Platelet Count 182 10^3/cmm (130-400); Red Blood Count 5.98 10^6/uL (4.1-5.3); Red Cell Distribution Width 17.1 % (12.1-15.1); White Blood Count 9.7 10^3/uL (4.0-10.0)
[2022-07-19 04:42] LABS: Alanine Aminotransferase 15 U/L (0-41); Albumin Level 3.4 g/dL (3.5-5.2); Alkaline Phosphatase 52 U/L (40-130); Anion Gap 12.5 (5-19); Aspartate Amino Transferase 11 U/L (0-40); Blood Urea Nitrogen 17 mg/dL (8-23); Calcium 7.5 mg/dL (8.5-10.5); Carbon Dioxide 30 mmol/L (22-29); Chloride 98 mmol/L (98-107); Globulin 2.8 g/dL (1.3-4.6); Glomerular Filtration Rate 60.4 mL/min (90-130); Glucose 104 mg/dL (65-115); Osmolality Calculated 284 mOsm/kg (285-295); Potassium 4.5 mmol/L (3.5-5.1); Sodium 136 mmol/L (136-145); Total Bilirubin 0.5 mg/dL (0.15-1.2); Total Protein 6.2 g/dL (6.6-8.7); Troponin 5 2HR 27.29 ng/L (0-15)
[2022-07-19 04:43] LABS: Troponin 5 2HR Delta 0.29 ABS# (0-10)
--- NOTE | 2022-07-19 05:13 | ECG_ITS ---
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 Measurements Intervals [place] Rate: 96 P: [place]: QRS: -35 QRSD: 109 T: 98 QT: 337 QTc: 426 Interpretive Statements ATRIAL FIBRILLATION LEFT AXIS DEVIATION [QRS AXIS < -30] POSSIBLE ANTERIOR MYOCARDIAL INFARCTION , OF INDETERMINATE AGE [30 ms Q WAVE IN V3/V4, OR R < 0.2 mV IN V4] Compared to ECG 07/19/2022 01:30:14 Left-axis deviation now present Myocardial infarct finding still present Electronically Signed On 07-19-2022 11:09:15 CDT by Lance Feliz M.D. [id number]
[2022-07-19] MEDS: lactated ringers 1,000 ML 150 ML IV (05:18)
[2022-07-19 06:31] LABS: Troponin 5 6HR 24.99 ng/L (0-15)
[2022-07-19 06:43] LABS: Troponin 5 6HR Delta -2.01 ng/L (0-12)
--- NOTE | 2022-07-19 08:09 | PC.NURSE ---
Physician notified of patient being hypotensive. Physician ordered fluid bolus.
[2022-07-19] MEDS: sodium chloride 0.9% 500 ML 999 ML IV (08:22)
[2022-07-19] MEDS: pantoprazole DR 40 mg Tablet PO (08:56)
[2022-07-19] MEDS: atorvastatin 40 mg Tablet 20 MG PO (08:56)
--- NOTE | 2022-07-19 09:32 | US_ITS ---
WS: [id number] RIGHT UPPER QUADRANT ULTRASOUND HISTORY: ruq pain COMPARISON: CT 07/18/2022 Liver: 24.5 cm in length. Markedly enlarged liver. Diffuse heterogeneity throughout the liver. The en tire liver is not well visualized due to patient's body habitus. No bile duct dilatation. Portal Vein: Normal hepatopetal flow with monophasic waveform. Gallbladder: Normally distended gallbladder with no stones or wall thickening. CBD: 0.8 cm Pancreas: Not visualized. Right kidney: 15.4 cm in length. Normal size and echogenicity. No hydronephrosis or mass. Aorta and IVC: Poorly visualized. No ascites. US/US gall bladder [id number] IMPRESSION: 1. Limited evaluation of the abdomen due to body habitus. 2. Liver is markedly enlarged with changes of hepatic steatosis. The ill-defin ed nodule in the RIGHT lobe of liver is not evident by ultrasound. 3. Negative gallbladder. 4. Negative RIGHT kidney.
--- NOTE | 2022-07-19 10:03 | PM.PN ---
Subjective Subjective: Patient was seen this morning, he continues to complain of abdominal pain, abdominal distention, does complain of right upper quadrant pain, he tells me he has been given any pain medication, the fentanyl down to the emergency room is helping, continues to have diarrhea, denies any history of food poisoning, he drinks city water, denies any bloody stools, he is worried about the possibility of having ischemic colitis or mesenteric ischemia, as one of his friends had blood clots in his abdomen Vitals/I&O/Wt Last Vital Signs Temp 98.0 F 07/19/22 08:00 Pulse 91 07/19/22 08:00 Resp 15 07/19/22 08:00 BP 118/82 07/19/22 09:52 Pulse Ox 92 07/19/22 08:00 O2 Del Method 07/19/22 08:00 O2 Flow Rate 4 07/19/22 08:00 07/18/22 07/19/22 07/19/22 22:59 06:59 14:59 Intake Total 1000 / 1000 1110 / 2110 500 / 500 Balance 1000 / 1000 1110 / 2110 500 / 500 Weight last 48 hrs Weight 151.953 kg Physical Exam Const: COMMON NORMALS: no acute distress and patient oriented x3 Neck/C-Spine: COMMON NORMALS: no JVD Resp: COMMON NORMALS: normal respiratory effort, No retractions, No use of accessory muscles and clear to auscultation bilaterally AUSCULTATION: clear to auscultation bilaterally Cardio: COMMON NORMALS: no JVD, regular rate, regular rhythm, S1 normal heart sound present and S2 normal heart sound present RATE: regular rate RHYTHM: regular rhythm HEART SOUNDS: S1 normal heart sound present and S2 normal heart sound present Extremity: COMMON NORMALS: no pedal edema Neuro: COMMON NORMALS: patient oriented x3 Psych: COMMON NORMALS: mental status grossly normal Data : 07/19/22 02:38 07/19/22 02:38 A&P Assessment and plan (1) Ileus: (2) Gastroenteritis: (3) Dehydration: (4) Intractable nausea and vomiting: (5) Hypotension: Plan 67-year-old male with past medical history as above, presenting today with complaints of abdominal pain nausea vomiting, noted to be clinically dehydrated with soft blood pressures. Will admit in observation. Clinically picture appears to be consistent with possible viral gastroenteritis and resulting ileus. Less likely to be bacterial given absence of fever and benign abdominal exam, however given soft blood pressure for now would cover empirically with antibiotics including ceftriaxone and metronidazole. Check enteric bacterial PCR panel. Currently unable to tolerate p.o. intake. We will keep n.p.o. for bowel rest. Zofran 4 mg IV every 8 hours for symptomatic management. Increase fluids to 125 cc an hour, Add Dilaudid for pain Has erythrocytosis, likely secondary to testosterone use Follow stool studies Right upper quadrant ultrasound Holding his home doses of antihypertensive including bisoprolol HCTZ. Blood pressures remain soft we will bolus normal saline, lactic acid within normal limits we will recheck He has a thyroid nodule, needs to follow-up as outpatient Has a liver nodule, needs to follow-up as outpatient Attestations Medical Necessity Statement*: Patient requires hospitalization for diarrhea, dehydration, hypotension, ileus Coding Level of Care Code Acute Coverstitch Machine Operator for [facility] Diagnoses Ileus K56.7 Gastroenteritis K52.9 Dehydration E86.0 Intractable nausea and vomiting R11.2 Hypotension I95.9
--- NOTE | 2022-07-19 12:56 | PC.CHAP ---
Pastoral Care Encounter/Spiritual Assessment Type of Contact [] Declined rn advice visit [] Patient/Family/Request visit [] Outpatient visit [] Follow-up visit [] Physician referral [] Code/Alert [x] Routine visit [] Staff referral [] Actively dying [] Patient sleeping [] Family support [] [] Out of room [] Palliative care [] [x] Receiving care in room [] Pre-surgical visit [] Trauma [x] Long length of stay [] ICU visit [] Other: Relational/Emotional Strength [x] Patient feels connected with others/family/visitors/staff [] Distress [] Loneliness/isolation [] Abandonment Spirituality of Patient [x] Person of Maryanne [] Attends Tenriism of their Maryanne [x] Believes in Prayer [] Reads Bible or Synagogue materials [] There are Spiritual issues to be addressed Construction Safety Consultant 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 [x] Prayer [x] Active listening [x] Non-anxious presence [x] Spiritual/emotional support [] Crisis/trauma care [x] Spiritual counseling [] Bereavement support [] Provided bereavement packet [] Provided Bible/devotional materials [] Provided toy/stuffed animal, coloring book to patient or family member [] Provided Communion [] Anointing/[place] [] Salvation [x] Completed spiritual assessment [] Other: Impact on Illness or Injury [] Angry [] Fearful [x] Anxious [] Often cries [] Exhaustion [] Unable to work [] Unable to attend congregational [] Unable to walk/stand [] Unable to read [] Unable to drive [x] Unable to eat/drink [] Unable to sleep [] Unable to be with family [] Patient intubated [] Other: Summary unable to eat has stomck pain waiting doctors report has a good attitude postive well be able to go home soon Time spent with patient 10 mins
[2022-07-19] MEDS: lactated ringers 1,000 ML 100 ML IV (15:44)
[2022-07-19] MEDS: allopurinol 300 mg Tablet PO (21:32)
[2022-07-19] MEDS: trazodone 150 mg Tablet 300 MG PO (21:32)
[2022-07-20] VITALS (8 sets, daily range): BP systolic 116–134; BP diastolic 65–79; PULSE 76–105; RESP 15–20; TEMP 36.6–38.2; O2SAT 90–94
[2022-07-20] MEDS: cefTRIAXone 1,000 MG in sodium chloride 0.9% (plus) 50 ML 100 MG IV (00:02)
[2022-07-20] MEDS: acetaminophen 325 mg Tablet 650 MG PO ×3 (00:10→13:29)
[2022-07-20] MEDS: lactated ringers 1,000 ML 100 ML IV ×2 (03:25→13:28)
[2022-07-20 04:59] LABS: Basophils % 0.4 %; Eosinophils # 0.1 10^3/uL (0.0-0.8); Eosinophils % 1.6 %; Hematocrit 54.9 % (42.0-52.0); Hemoglobin 16.7 g/dL (11.7-16.6); Lymphocytes # 1.3 10^3/uL (0.8-4.8); Lymphocytes % 16.7 %; Mean Corpuscular HGB Conc 30.4 g/dL (30.0-36.0); Mean Corpuscular Hemoglobin 29.9 pg (28.0-34.0); Mean Corpuscular Volume 98.2 fl (80-94); Mean Platelet Volume 10.7 fL (7.4-10.4); Monocytes # 0.7 10^3/uL (0.2-0.9); Monocytes % 9.5 %; Neutrophils # 5.37 10^3/uL (1.8-7.7); Neutrophils % 71.3 %; Nucleated Red Blood Cells % 0 %; Platelet Count 173 10^3/cmm (130-400); Red Blood Count 5.59 10^6/uL (4.1-5.3); Red Cell Distribution Width 16.6 % (12.1-15.1); White Blood Count 7.5 10^3/uL (4.0-10.0)
[2022-07-20 05:32] LABS: Lactate (Lactic Acid level) 0.9 mmol/L (0.5-2.2)
[2022-07-20 05:41] LABS: Anion Gap 12.2 (5-19); Blood Urea Nitrogen 11 mg/dL (8-23); Calcium 7.8 mg/dL (8.5-10.5); Carbon Dioxide 27 mmol/L (22-29); Chloride 103 mmol/L (98-107); Glomerular Filtration Rate 84.2 mL/min (90-130); Glucose 104 mg/dL (65-115); Magnesium 1.9 mg/dL (1.7-2.3); Osmolality Calculated 286 mOsm/kg (285-295); Potassium 4.2 mmol/L (3.5-5.1); Sodium 138 mmol/L (136-145)
[2022-07-20 06:29] LABS: Glucose Point of Care 92 mg/dL (70-110)
[2022-07-20] MEDS: pantoprazole DR 40 mg Tablet PO (09:16)
[2022-07-20] MEDS: atorvastatin 40 mg Tablet 20 MG PO (09:16)
[2022-07-20] MEDS: HYDROmorphone 1 mg/mL INJ 1 mL 0.5 MG IVP (10:27)
[2022-07-20] MEDS: magnesium lactate 84 mg Tablet PO (10:27)
[2022-07-20] MEDS: polyethylene glycol 3350 Pkt 17 gm PO (10:28)
--- NOTE | 2022-07-20 11:02 | ECG_ITS ---
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 Measurements Intervals [place] Rate: 80 P: [place]: QRS: -21 QRSD: 115 T: 92 QT: 373 QTc: 433 Interpretive Statements ATRIAL FIBRILLATION ANTERIOR MYOCARDIAL INFARCTION , OF INDETERMINATE AGE [40+ ms Q WAVE AND/OR ST/T ABNORMALITY IN V3/V4] Compared to ECG 07/19/2022 05:13:12 Left-axis deviation no longer present Myocardial infarct finding still present Electronically Signed On 07-20-2022 16:49:56 CDT by Raiza Orourke M.D. [email or web address]/NU/[id number]
--- NOTE | 2022-07-20 11:29 | PC.NURSE ---
Patient complained of chest pain, vital signs stable, EKG performed and Dr. Carter notified.
[2022-07-20 12:25] LABS: Troponin(5th) Baseline 20 ng/L (0-15)
--- NOTE | 2022-07-20 13:16 | ECG_ITS ---
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 Measurements Intervals [place] Rate: 81 P: [place]: QRS: -26 QRSD: 113 T: 94 QT: 354 QTc: 412 Interpretive Statements ATRIAL FIBRILLATION ANTEROSEPTAL MYOCARDIAL INFARCTION , OF INDETERMINATE AGE [40+ ms Q WAVE IN V1-V4] Compared to ECG 07/20/2022 10:16:43 No significant changes Electronically Signed On 07-20-2022 16:53:41 CDT by Raiza Orourke M.D. [id number]
--- NOTE | 2022-07-20 13:38 | PM.PN ---
Subjective Subjective: Patient was seen this morning, he tells me he wants to try clear liquid diet, he wants to try to go home, but he has not had a bowel movement, his abdominal pain has resolved, he did complain of chest pain earlier on in the morning, EKG shows Q waves in anterior leads, A. fib, patient has told nursing staff that he used to take Xarelto, but stopped taking it due to affordability Vitals/I&O/Wt Last Vital Signs Temp 98.0 F 07/20/22 11:32 Pulse 86 07/20/22 11:32 Resp 15 07/20/22 11:32 BP 126/79 07/20/22 11:32 Pulse Ox 92 07/20/22 11:32 O2 Del Method 07/20/22 11:32 O2 Flow Rate 4 07/20/22 08:00 07/19/22 07/20/22 07/20/22 22:59 06:59 14:59 Intake Total 1000 / 2500.0 1410 / 1410 Output Total 550 / 550 Balance 1000 / 2250.0 860 / 860 Weight last 48 hrs Weight 151.953 kg Physical Exam Const: COMMON NORMALS: no acute distress and patient oriented x3 Resp: COMMON NORMALS: normal respiratory effort, No retractions, No use of accessory muscles and clear to auscultation bilaterally AUSCULTATION: clear to auscultation bilaterally Cardio: COMMON NORMALS: regular rate, regular rhythm, S1 normal heart sound present and S2 normal heart sound present RATE: regular rate RHYTHM: regular rhythm HEART SOUNDS: S1 normal heart sound present and S2 normal heart sound present GI: OTHER: Abdomen soft, slightly distended, good bowel sounds, no significant tenderness, no rebound, no guarding, no rigidity Extremity: COMMON NORMALS: no pedal edema Neuro: COMMON NORMALS: patient oriented x3 Psych: COMMON NORMALS: mental status grossly normal Data : 07/20/22 03:46 07/20/22 03:46 A&P Assessment and plan (1) Ileus: (2) Gastroenteritis: (3) Dehydration: (4) Intractable nausea and vomiting: (5) Hypotension: Plan 67-year-old male with past medical history as above, presenting today with complaints of abdominal pain nausea vomiting, noted to be clinically dehydrated with soft blood pressures. Will admit in observation. Clinically picture appears to be consistent with possible viral gastroenteritis and resulting ileus. Less likely to be bacterial given absence of fever and benign abdominal exam, however given soft blood pressure for now would cover empirically with antibiotics including ceftriaxone and metronidazole. Check enteric bacterial PCR panel. Transit to clears. We will keep n.p.o. for bowel rest. Zofran 4 mg IV every 8 hours for symptomatic management. Continue fluids at 125 cc an hour Add Dilaudid for pain Has erythrocytosis, likely secondary to testosterone use Follow stool studies Right upper quadrant ultrasound 1.? Limited evaluation of the abdomen due to body habitus. 2.? Liver is markedly enlarged with changes of hepatic steatosis. The ill-defined nodule in the RIGHT lobe of liver is not evident by ultrasound. 3.? Negative gallbladder. 4.? Negative RIGHT kidney. ? Holding his home doses of antihypertensive including bisoprolol HCTZ. Has chest pain complaints, serial EKGs serial troponins, telemetry monitoring Atrial fibrillation, continue home Xarelto, He has a thyroid nodule, needs to follow-up as outpatient Has a liver nodule, needs to follow-up as outpatient Attestations Medical Necessity Statement*: Patient requires hospitalization for chest pain, ileus, gastroenteritis Coding Level of Care Code Acute Imaging Services Director for [facility] Fwd Diagnoses Ileus K56.7 Gastroenteritis K52.9 Dehydration E86.0 Intractable nausea and vomiting R11.2 Hypotension I95.9
[2022-07-20 14:34] LABS: Troponin 5 2HR 19.47 ng/L (0-15)
[2022-07-20 14:37] LABS: Troponin 5 2HR Delta -0.53 ABS# (0-10)
--- NOTE | 2022-07-20 17:02 | ECG_ITS ---
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 Measurements Intervals [place] Rate: 80 P: [place]: QRS: -20 QRSD: 114 T: 85 QT: 364 QTc: 420 Interpretive Statements ATRIAL FIBRILLATION SEPTAL MYOCARDIAL INFARCTION , OF INDETERMINATE AGE [40+ ms Q WAVE IN V1/V2] Compared to ECG 07/20/2022 13:16:11 No significant changes Electronically Signed On 07-20-2022 16:53:59 CDT by Raiza Orourke M.D. [id number]
--- NOTE | 2022-07-20 17:23 | PM.DCS ---
Discharge Providers Date of Admission: 07/18/22 22:06 Date of Discharge: July 20, 2022 Attending Provider at Admission: Bernadine Patel MD Attending Provider at Discharge: Blanco Carter MD Primary Care Provider: Shant Ballesteros MD Diagnoses at Discharge Discharge Diagnosis (1) Ileus: Status: Acute (2) Gastroenteritis: Status: Acute (3) Dehydration: Status: Acute (4) Intractable nausea and vomiting: Status: Acute (5) Hypotension: Status: Acute Reason for Visit Reason for Visit: Abdominal Pain Hospital Course Hospital Course This is a 67-year-old male with a past medical history of atrial fibrillation not on anticoagulation due to affordability, hypertension, hyperlipidemia, who presents [facility] due to abdominal pain and distention Patient was admitted to [facility] for abdominal pain, distention, secondary to likely gastroenteritis with ileus. Received bowel rest for 24 hours, IV fluids, IV antibiotics, clinically monitor, patient's abdominal distention pain significant improved, tolerated clears, tolerated it well, stool studies have been negative so far. Patient will be discharged on instructions to drink plenty of electrolyte balance fluids, slowly advance diet, take antibiotics as prescribed, if any recurrent abdominal pain go to the emergency room Patient also had complaints of chest pain during hospitalization, no recurrent episodes of chest pain, no significant troponin elevation, no significant delta troponin, EKG showing atrial fibrillation, rate controlled, discharged with follow-up with cardiology, if he were to have chest pain to go to the emergency room For his history of atrial fibrillation, patient has not been taking Xarelto due to affordability, I have sent the Xarelto to the pharmacy under [address], advised of importance of anticoagulant therapy, to decrease risk of stroke Physical Exam Const: COMMON NORMALS: no acute distress and patient oriented x3 Resp: COMMON NORMALS: normal respiratory effort, No retractions, No use of accessory muscles and clear to auscultation bilaterally AUSCULTATION: clear to auscultation bilaterally Cardio: COMMON NORMALS: regular rate, regular rhythm, S1 normal heart sound present and S2 normal heart sound present RATE: regular rate RHYTHM: regular rhythm HEART SOUNDS: S1 normal heart sound present and S2 normal heart sound present GI: COMMON NORMALS: Normal to inspection, nondistended, normoactive bowel sounds present and non-tender Extremity: COMMON NORMALS: no pedal edema Neuro: COMMON NORMALS: patient oriented x3 Psych: COMMON NORMALS: mental status grossly normal Discharge Data Studies Completed and Pending Completed Studies During Hospitalization Category Date Time Status CT chest abdomen pelvis [CT chest abd pel w con*] Stat Cat Scan 07/18/22 16:50 Completed US gall bladder 85475 Routine Ultrasound 07/19/22 09:32 Completed Pending at discharge Category Date Time Status Basic Metabolic Panel AM LABS Lab 07/21/22 04:00 Ordered Basic Metabolic Panel AM LABS Lab 07/22/22 04:00 Ordered Complete Blood Count w/Auto AM LABS Lab 07/21/22 04:00 Ordered Complete Blood Count w/Auto AM LABS Lab 07/22/22 04:00 Ordered Lactate (Lactic Acid level) AM LABS Lab 07/21/22 04:00 Ordered Lactate (Lactic Acid level) AM LABS Lab 07/22/22 04:00 Ordered Magnesium AM LABS Lab 07/21/22 04:00 Ordered Magnesium AM LABS Lab 07/22/22 04:00 Ordered Troponin(5th) 6 hour. Timed Lab 07/20/22 17:48 Ordered Radiology Impressions Chest/Abdomen/Pelvis CT 07/18/22 16:50 IMPRESSION: 1. No acute finding in the chest. 2. Thyroid nodules measuring up to 5.7 cm. Ultrasound follow-up recommended. IMPRESSION: 1. Mildly dilated loops of proximal and mid small bowel most likely represents ileus versus infectious or inflammatory enteritis. 2. Fluid distended stomach. NG tube placement should be considered. 3. Mild wall thickening in the urinary bladder may relate to nondistention. Cystitis is not excluded. Clinical correlation recommended. 4. Indeterminate 1.9 cm nodule in the right liver lobe. Further evaluation with non-emergent liver MRI is recommended. (Reference: Bright) References: Bright PISANO, et al. Management of Incidental Liver Lesions on CT: A White Paper of the ACR Incidental Findings Committee. J Am Dg Radiol. 2017;14(11):6790-4103. COMMENTS: Consistent with the [employer] [employer]'s Incidental Findings Committee white paper (J Am Dg Radiol 2018): Any incidental renal lesion less than 1 cm or classified as too small to characterize, or any incidental cystic renal lesion characterized as simple-appearing, is likely benign. No follow-up imaging is recommended for these lesions per consensus recommendations based on imaging criteria. Gallbladder Ultrasound 07/19/22 09:32 IMPRESSION: 1. Limited evaluation of the abdomen due to body habitus. 2. Liver is markedly enlarged with changes of hepatic steatosis. The ill-defined nodule in the RIGHT lobe of liver is not evident by ultrasound. 3. Negative gallbladder. 4. Negative RIGHT kidney. Laboratory Results WBC 7.5 10^3/uL (4.0-10.0) 07/20/22 03:46 RBC 5.59 10^6/uL (4.1-5.3) H 07/20/22 03:46 Hgb 16.7 g/dL (11.7-16.6) H 07/20/22 03:46 Hct 54.9 % (42.0-52.0) H 07/20/22 03:46 MCV 98.2 fl (80-94) H 07/20/22 03:46 MCH 29.9 pg (28.0-34.0) 07/20/22 03:46 MCHC 30.4 g/dL (30.0-36.0) 07/20/22 03:46 RDW 16.6 % (12.1-15.1) H 07/20/22 03:46 Plt Count 173 10^3/cmm (130-400) 07/20/22 03:46 MPV 10.7 fL (7.4-10.4) H 07/20/22 03:46 Neut % (Auto) 71.3 % 07/20/22 03:46 Lymph % (Auto) 16.7 % 07/20/22 03:46 Banner % (Auto) 9.5 % 07/20/22 03:46 Eos % (Auto) 1.6 % 07/20/22 03:46 Baso % (Auto) 0.4 % 07/20/22 03:46 Neut # (Auto) 5.37 10^3/uL (1.8-7.7) 07/20/22 03:46 Lymph # (Auto) 1.3 10^3/uL (0.8-4.8) 07/20/22 03:46 Banner # (Auto) 0.7 10^3/uL (0.2-0.9) 07/20/22 03:46 Eos # (Auto) 0.1 10^3/uL (0.0-0.8) 07/20/22 03:46 Baso # (Auto) 0.0 10^3/uL (0.0-0.1) 07/20/22 03:46 Nucleated RBC % (auto) 0 % 07/20/22 03:46 Nucleated RBCs # 0.0 /100WBC 07/20/22 03:46 Sodium 138 mmol/L (136-145) 07/20/22 03:46 Potassium 4.2 mmol/L (3.5-5.1) 07/20/22 03:46 Chloride 103 mmol/L (98-107) 07/20/22 03:46 Carbon Dioxide 27 mmol/L (22-29) 07/20/22 03:46 Anion Gap 12.2 (5-19) 07/20/22 03:46 BUN 11 mg/dL (8-23) 07/20/22 03:46 Creatinine 0.9 mg/dL (0.7-1.2) 07/20/22 03:46 GFR Calculation 84.2 mL/min (90-130) L 07/20/22 03:46 Glucose 104 mg/dL (65-115) 07/20/22 03:46 POC Glucose 92 mg/dL (70-110) 07/20/22 06:11 Calculated Osmolality 286 mOsm/kg (285-295) 07/20/22 03:46 Lactic Acid 1.5 mmol/L (0.5-2.2) 07/18/22 23:49 Lactate 0.9 mmol/L (0.5-2.2) 07/20/22 03:46 Calcium 7.8 mg/dL (8.5-10.5) L 07/20/22 03:46 Magnesium 1.9 mg/dL (1.7-2.3) 07/20/22 03:46 Total Bilirubin 0.5 mg/dL (0.15-1.2) 07/19/22 02:38 AST 11 U/L (0-40) 07/19/22 02:38 ALT 15 U/L (0-41) 07/19/22 02:38 Alkaline Phosphatase 52 U/L (40-130) 07/19/22 02:38 Troponin T Baseline 20 ng/L (0-15) H 07/20/22 11:48 Troponin T 120 Minute 19.47 ng/L (0-15) H 07/20/22 13:55 Delta Troponin T -0.53 ABS# (0-10) L 07/20/22 13:55 Troponin T Hi Sens 6Hr 24.99 ng/L (0-15) H 07/19/22 05:53 Troponin T Hi Sens 6Hr Delta -2.01 ng/L (0-12) L 07/19/22 05:53 Total Protein 6.2 g/dL (6.6-8.7) L 07/19/22 02:38 Albumin 3.4 g/dL (3.5-5.2) L 07/19/22 02:38 Globulin 2.8 g/dL (1.3-4.6) 07/19/22 02:38 Lipase 38 U/L (13-60) 07/18/22 17:43 Urine Color Yun (Yellow) 07/18/22 17:15 Urine Appearance Clear (CLEAR) 07/18/22 17:15 Urine pH 5 (5-7) 07/18/22 17:15 Ur Specific [place] 1.025 (1.005-1.030) 07/18/22 17:15 Urine Protein 2+ (Negative) H 07/18/22 17:15 Urine Glucose (UA) Norm (Normal) 07/18/22 17:15 Urine Ketones 1+ (Negative) H 07/18/22 17:15 Urine Blood 3+ (Negative) H 07/18/22 17:15 Urine Nitrate Negative (Negative) 07/18/22 17:15 Urine Bilirubin 1+ (Negative) H 07/18/22 17:15 Urine Urobilinogen Neg mg/dL (Negative) 07/18/22 17:15 Ur Leukocyte Esterase Trace (Negative) H 07/18/22 17:15 Urine RBC 25-40 /hpf (0-2) H 07/18/22 17:15 Urine WBC 0-4 /hpf (0-5) H 07/18/22 17:15 Ur Squamous Epith Cells None /hpf (0-5) 07/18/22 17:15 Amorphous Sediment Not Reportable 07/18/22 17:15 Urine Bacteria None /hpf (NONE) 07/18/22 17:15 Urine Mucus 2+ /hpf 07/18/22 17:15 Vitals Last Vital Signs Temp 97.8 F 07/20/22 15:58 Pulse 105 H 07/20/22 16:45 Resp 15 07/20/22 15:58 BP 120/65 07/20/22 15:58 Pulse Ox 93 07/20/22 15:58 O2 Del Method 07/20/22 15:58 O2 Flow Rate 4 07/20/22 08:00 Discharge Plan Discharge Patient Disposition: Home Condition: Stable Prescriptions: New Xarelto 10 mg Tablet 20 mg PO QPM 30 Days Qty: 60 0RF ciprofloxacin HCl 500 mg tablet 500 mg PO BID 5 Days Qty: 10 0RF metronidazole 250 mg tablet 250 mg PO Q8H 5 Days Qty: 15 0RF polyethylene glycol 3350 17 gram Powder In Packet 17 g PO DAILY PRN (Reason: constipation) 14 Days Qty: 14 0RF Continued (DME) Custom Molded Orthotics See Rx Instructions .Route .MEDSUPPLY Qty: 1 0RF Rx Instructions: As directed (DME) Night splint to Right See Rx Instructions .Route .MEDSUPPLY Qty: 1 0RF Rx Instructions: As directed trazodone 300 mg tablet 300 mg PO BEDTIME allopurinol 300 mg tablet 300 mg PO DAILY@2200 folic acid 1 mg tablet 1 mg PO DAILY@2199 multivitamin Tablet 1 tab PO DAILY@220 biotin 1 mg tablet 1 mg PO DAILY vrev-globj-ozi-D3-hyal-fawad bor 750 mg-100 mg- 25 mcg tablet 1 tab PO DAILY lycopene 10 mg capsule 10 mg PO DAILY Rx Instructions: administer after a meal resveratrol 250 mg capsule 250 mg PO DAILY saw palmetto 500 mg capsule 500 mg PO DAILY Rx Instructions: give with food (meal/snack) cholecalciferol (vitamin D3) 10 mcg/mL (400 unit/mL) drops 10 mcg PO .spray daily lovastatin 40 mg tablet 40 mg PO DAILY melatonin 3 mg capsule 3 mg PO BEDTIME tadalafil 20 mg tablet 20 mg PO DAILY PRN (Reason: sexual activity) Qty: 20 12RF Rx Instructions: administer approximately 30min before sexual activity; NO NITROGLYCERIN! Symbicort 80-4.5 mcg/actuation HFA aerosol inhaler 2 puff INHALATION BID@ Qty: 10.2 3RF testosterone cypionate 200 mg/mL oil 120 mg IM Q7D Qty: 10 5RF Rx Instructions: ON TUESDAYS vitamin E 1,000 unit Capsule 1,000 unit PO DAILY@2200 sennosides [senna] 8.6 mg Tablet 8.6 mg PO DAILY PRN (Reason: Constipation) ascorbic acid (vitamin C) [Vitamin C] 1,000 mg Tablet 1,000 mg PO DAILY@2200 loratadine [Claritin] 10 mg tablet 10 mg PO DAILY@220 triamcinolone acetonide 0.1 % ointment 1 applic TOPICAL BID Qty: 30 0RF bisoprolol-hydrochlorothiazide 10-6.25 mg tablet 1 tab PO DAILY ketoconazole 2 % shampoo 1 applic TOPICAL DAILY PRN (Reason: Dry Skin) Held lisinopril 2.5 mg tablet 5 mg PO BID Hold Instructions: Resume on 07/22/22. Label Comments: not started yet Discontinued sulfamethoxazole-trimethoprim [Bactrim DS] 800-160 mg tablet 1 tab PO BID Qty: 20 0RF Discharge Orders: Discharge Order (Routine); Ordered 07/20/22 Ordered By: Blanco Carter Referrals: Raiza Orourke MD [Physician] - 1 month (afib) Shant Ballesteros MD [Primary Care Provider] - Discharge Diet: Cardiac and Full LIquid Discharge Activity: Resume usual activity Patient Instructions: Opioid Safety Activity Restrictions/Additional Instructions: - Please hydrate well -Take antibiotics as prescribed -Advance clear liquids, to full liquid diet, then to a GI soft diet -If you have recurrent abdominal pain but emergency room -I have prescribed her Lakeisha to be sent to [facility] pharmacy under [address], please take as prescribed, follow-up with cardiology in a month If any recurrent chest pain go to the emergency room- Discharge Attestations Time Spent in Discharge Care*: less than 30 min Quality Metrics Clinical Quality Measures [ No reported AMI, CVA or VTE this stay] Coding Level of Care Code Acute Chg FW DC note Diagnoses Ileus K56.7 Gastroenteritis K52.9 Dehydration E86.0 Intractable nausea and vomiting R11.2 Hypotension I95.9
[2022-07-20] MEDS: rivaroxaban 10 mg Tablet 20 MG PO (18:23)
[2022-07-20 18:29] LABS: Troponin 5 6HR 21.08 ng/L (0-15); Troponin 5 6HR Delta 1.08 ng/L (0-12)
--- NOTE | 2022-07-21 08:43 | PC.NURSE ---
Called and reminded patient to please call on Saturday and make follow up appointments with Dr. Soares [phone] for 2 weeks for a liver nodule and Dr. Cheatham [phone] for 2 weeks for his Thyroid nodule. Patient verbalized understanding.
== END 2022-07-20 18:35 | disposition home or self-care (01) ==
LOC: ER 22:05 → MEDSURG 23:07
PROVIDERS: Admitting Provider Student in an Organized Health Care Education/Training Program; Emergency Provider Emergency Medicine; PCP Family Medicine; Visit Provider Family Medicine
DX: K56.7 Ileus, unspecified (principal); A09 Infectious gastroenteritis and colitis, unspecified; K52.9 Noninfective gastroenteritis and colitis, unspecified; E86.0 Dehydration; R11.2 Nausea with vomiting, unspecified; I95.9 Hypotension, unspecified; I48.91 Unspecified atrial fibrillation; Z79.01 Long term (current) use of anticoagulants; I10 Essential (primary) hypertension; E78.5 Hyperlipidemia, unspecified; Z86.16 Personal history of COVID-19; Z87.891 Personal history of nicotine dependence
CPT/HCPCS: 36415; 36416; 71260; 74177; 76705; 80048; 80053; 81001; 82962; 83605; 83690; 83735; 84484; 85025; 87506; 93005; 96361; 96365; 96375; 99285; G0378; J0696; J1170; J2405; J2765; J3010; J7030; J7040; Q9967

== ENCOUNTER 2022-08-06 15:52 | Outpatient (CLI) | payer MEDICARE, SELFPAY ==
[2022-08-06 22:58] LABS: Testosterone Total - Urology 491 ng/mL (300-1000)
== END 2022-08-06 15:53 | disposition home or self-care (01) ==
LOC: LAB 16:00
PROVIDERS: PCP Family Medicine; Visit Provider Urology
DX: E34.9 Endocrine disorder, unspecified (principal)
CPT/HCPCS: 84403

== ENCOUNTER → 2022-08-10 08:05 | Outpatient (BNVA) | payer MEDICARE, SELFPAY | PROVIDERS: PCP Family Medicine; Visit Provider Urology | DX: E34.9 Endocrine disorder, unspecified (principal); D75.1 Secondary polycythemia | CPT/HCPCS: 81003; 99213 ==

== ENCOUNTER → 2022-08-16 13:42 | Outpatient (BNVA) | payer MEDICARE, SELFPAY | PROVIDERS: PCP Family Medicine; Visit Provider Orthopaedic Surgery | DX: M48.062 Spinal stenosis, lumbar region with neurogenic claudication (principal); M47.816 Spondylosis without myelopathy or radiculopathy, lumbar region; M41.9 Scoliosis, unspecified; Z98.1 Arthrodesis status | CPT/HCPCS: 72070; 72110; 99214 ==

== ENCOUNTER → 2022-08-21 15:35 | Outpatient (BNVA) | payer MEDICARE, SELFPAY | PROVIDERS: PCP Family Medicine; Visit Provider Surgery | DX: R10.9 Unspecified abdominal pain (principal); K76.9 Liver disease, unspecified | CPT/HCPCS: 99204 ==

== ENCOUNTER → 2022-09-18 09:15 | Outpatient (BNVA) | payer MEDICARE, SELFPAY | PROVIDERS: PCP Family Medicine; Visit Provider Anesthesiology Pain Medicine | DX: M48.062 Spinal stenosis, lumbar region with neurogenic claudication (principal); M79.604 Pain in right leg; M79.605 Pain in left leg | CPT/HCPCS: 99204 ==

== ENCOUNTER 2022-09-19 07:25 | Day surgery (SDC) | payer MEDICARE, SELFPAY ==
[2022-09-18 07:48] VITALS: BMI 38.9
[2022-09-19 07:55] VITALS: BP 107/67; PULSE 78; RESP 16; TEMP 36.4; O2SAT 93
[2022-09-19] MEDS: sodium chloride 0.9% 1,000 ML 30 ML IV (08:10)
--- NOTE | 2022-09-19 08:39 | ANES.PREANE2 ---
Pre-Anesthetic Assessment Height/Weight: Height 1.93 m Weight 145.15 kg Temp Pulse Resp BP Pulse Ox O2 Del Method 97.6 F 78 16 107/67 93 09/19/22 07:55 09/19/22 07:55 09/19/22 07:55 09/19/22 07:55 09/19/22 07:55 09/19/22 07:55 Operation Date: 09/19/22 09:00 Proposed Procedures p Colonoscopy 76903,Z12.11(Not Applicable) - Isaias Soares DO Familial anesthetic complications: none Was Beta Larissa taken within 24 hours: Yes Was Clonidine taken within 24 hours: N/A Last intake: Intake Last Liquid Date 09/19/22 Last Liquid Time 06:00 Last Solid Date 09/17/22 Last Solid Time 20:00 Social No alcohol and No tobacco Exam alert, oriented x 3 and clear to auscultation bilaterally irregular Airway Submandibular: within normal limits Cervical ROM: within normal limits Mallampati: Class II Dentition: false Pulmonary Asthma and Sleep Apnea CV/HEM Atrial Fibrillation, Arrythmia and Hypertension Metabolic Hyperlipidemia and Morbid Obesity [facility] Lower Back Pain and Osteoarthritis/DJD Anesthetic Plan ASA status: 3 Anesthesia: MAC Medications/Allergies Home Medications Medication Instructions Recorded Confirmed Last Taken Type allopurinol 300 mg tablet 300 mg PO DAILY@219910/15/19 09/19/22 09/18/22 History folic acid 1 mg tablet 1 mg PO DAILY@219910/15/19 09/19/22 09/17/22 History multivitamin 6 tab PO DAILY@219910/15/19 09/19/22 09/17/22 History trazodone 300 mg tablet 300 mg PO BEDTIME 10/15/19 09/19/22 09/18/22 History ascorbic acid (vitamin C) 1,000 mg 1,000 mg PO DAILY@219910/27/19 09/19/22 09/17/22 History tablet (Vitamin C) sennosides 8.6 mg tablet (senna) 8.6 mg PO DAILY PRN Constipation 10/27/19 09/19/22 10/26/19 History vitamin E 670 mg (1,000 unit) 1,000 unit PO DAILY@219910/27/19 09/19/22 09/17/22 History capsule triamcinolone acetonide 0.1 % 1 applic topical BID apply to 05/25/20 09/19/22 Unknown Rx topical ointment affected area #30 grams biotin 1 mg tablet 1 mg PO DAILY 11/15/20 09/19/22 09/17/22 History cholecalciferol (vitamin D3) 10 10 mcg PO DAILY 11/15/20 09/19/22 09/17/22 History mcg/mL (400 unit/mL) oral drops glucosamine 750 mg-chondroit 100 2 tab PO DAILY 11/15/20 09/19/22 09/17/22 History mg-msm-D3 25 yfy-mhfh-xlt bor tablet lycopene 10 mg capsule 10 mg PO DAILY 11/15/20 09/19/22 09/17/22 History resveratrol 250 mg capsule 250 mg PO DAILY 11/15/20 09/19/22 09/17/22 History saw palmetto 500 mg capsule 500 mg PO DAILY 11/15/20 09/19/22 09/17/22 History Custom Molded Orthotics #1 ea 10/30/21 09/18/22 Unknown Rx Night splint to Right #1 ea 10/30/21 09/18/22 Unknown Rx lisinopril 2.5 mg tablet 5 mg PO BID 11/21/21 09/19/22 09/18/22 History loratadine 10 mg tablet (Claritin) 10 mg PO DAILY@2200 PRN Allergy 11/21/21 09/19/22 07/17/22 History Symptoms lovastatin 40 mg tablet 40 mg PO DAILY 11/21/21 09/19/22 09/18/22 History budesonide-formoterol HFA 80 2 puff inhalation BID@ #10.2 01/19/22 09/19/22 09/16/22 Rx mcg-4.5 mcg/actuation aerosol grams inhaler (Symbicort) melatonin 3 mg capsule 3 mg PO BEDTIME 05/21/22 09/19/22 09/18/22 History testosterone cypionate 200 mg/mL 120 mg (0.6 mL) IM Q7D #10 mL 06/21/22 09/19/22 09/11/22 Rx intramuscular oil bisoprolol 10 2 tab PO DAILY 07/18/22 09/19/22 09/18/22 History mg-hydrochlorothiazide 6.25 mg tablet ketoconazole 2 % shampoo 1 applic topical DAILY PRN Dry Skin 07/18/22 09/19/22 09/18/22 History acetaminophen 325 mg capsule 325 mg PO QID PRN Pain 09/18/22 09/19/22 09/18/22 History tadalafil 20 mg tablet (Cialis) 20 mg PO DAILY PRN sexual activity 09/18/22 09/19/22 Unknown History Allergies Allergy/AdvReac Type Severity Reaction Status Date / Time oats Allergy DIARRHEA Verified 09/19/22 07:51 oxycodone Allergy N/V Verified 09/19/22 07:51 apixaban [From Eliquis] AdvReac Severe Headaches Verified 09/19/22 07:51 caffeine AdvReac Unknown PALPITATION Verified 09/19/22 07:51 S apple AdvReac DIARRHEA, Verified 09/19/22 07:51 VOMITING AND CRAMPING egg AdvReac DIARRHEA, Verified 09/19/22 07:51 VOMITING AND STOMACH CRAMPING meperidine [From Demerol] AdvReac EXCESSIVE Verified 09/19/22 07:51 SEDATION morphine AdvReac HALLUCINATI Verified 09/19/22 07:51 ONS berries Allergy Unknown Uncoded 09/19/22 07:51 FRYE AdvReac DIARRHEA Uncoded 09/19/22 07:51 Current Medications Generic Name Dose Route Start Last Admin Trade Name Freq PRN Reason Stop Dose Admin Sodium Chloride 1,000 mls @ 30 mls/hr 09/19/22 07:45 09/19/22 08:10 Sodium Chloride 0.9% IV 09/20/22 07:44 30 mls/hr .Q24H SOFIA Administration PFSH Anesthesia Medical History Afib Allergies Asperger syndrome mild Asthma Bilateral knee pain Chronic low back pain Chronic pain syndrome Chronic sinusitis of both maxillary sinuses COVID-19 determined by clinical diagnostic criteria Degenerative joint disease (DJD) of lumbar spine Erectile dysfunction Gout Hypertension New onset a-fib Opioid contract exists Osteoarthritis of hands, bilateral Osteoarthritis of knees, bilateral Pain in left shoulder Polycythemia Restrictive lung disease due to kyphoscoliosis Right renal stone Substernal goiter Suspected exposure to asbestos Testosterone deficiency On TRT for 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 Surgical History H/O ankle fusion H/O arthroscopic knee surgery H/O wrist surgery History of appendectomy History of back surgery History of shoulder surgery S/P ureteral stent placement Family History Grandfather CAD (coronary artery disease) Family/Other Cancer Grandmother Dementia Stroke Mother Lung disease Other Hypertension Denies family history of Rheumatoid arthritis Diabetes Lupus Clotting disorder Hyperlipidemia Chronic kidney disease (CKD) Suicide Anesthesia complication Bleeding disorder Social History Smoking and tobacco status: former smoker Quit status (tobacco): has quit using tobacco Year quit tobacco: 1975 [id number] Second hand smoke exposure: Yes Smoking risk assessment/counseling performed?: Yes Alcohol intake: never Adopted: No Caregiver/support person: No Lives independently: Yes Household members: none Housing: House Marital status: / service: No Current occupational status: retired Pets and animals: Yes History of recent travel: No Current gender identity: Male Data Anesthesia Cardiac Studies: Echocardiogram Ultrasound 10/17/20
--- NOTE | 2022-09-19 09:00 | W.PM.OPSUD ---
Surgery/Procedure H&P Update DATE OF PROCEDURE: September 19, 2022 DATE H&P PERFORMED: 08/21/22 PLANNED PROCEDURE: Operation Date: 09/19/22 09:00 Proposed Procedures p Colonoscopy 76813,Z12.11(Not Applicable) - Isaias Soares DO
[2022-09-19 09:37] VITALS: BP 107/67; PULSE 78; RESP 16; TEMP 36.3; O2SAT 93
[2022-09-19 09:50] VITALS: BP 108/64; PULSE 79; RESP 16; O2SAT 94
[2022-09-19 10:16] LABS: Basophils % 0.5 %; Eosinophils # 0.3 10^3/uL (0.0-0.8); Eosinophils % 3.5 %; Hematocrit 49.5 % (42.0-52.0); Hemoglobin 16.1 g/dL (11.7-16.6); Lymphocytes # 1.6 10^3/uL (0.8-4.8); Lymphocytes % 20.9 %; Mean Corpuscular HGB Conc 32.5 g/dL (30.0-36.0); Mean Corpuscular Hemoglobin 30.8 pg (28.0-34.0); Mean Corpuscular Volume 94.6 fl (80-94); Monocytes # 0.7 10^3/uL (0.2-0.9); Monocytes % 8.7 %; Neutrophils # 5.13 10^3/uL (1.8-7.7); Neutrophils % 65.6 %; Nucleated Red Blood Cells % 0 %; Platelet Count 181 10^3/cmm (130-400); Red Blood Count 5.23 10^6/uL (4.1-5.3); Red Cell Distribution Width 14.5 % (12.1-15.1); White Blood Count 7.8 10^3/uL (4.0-10.0)
[2022-09-19 10:42] LABS: Carcinoembryonic Antigen 13.3 ng/mL (0.0-4.7)
[2022-09-19 10:52] LABS: Anion Gap 12.1 (5-19); Blood Urea Nitrogen 10 mg/dL (8-23); Calcium 8.9 mg/dL (8.5-10.5); Carbon Dioxide 26 mmol/L (22-29); Chloride 101 mmol/L (98-107); Glomerular Filtration Rate 96.4 mL/min (90-130); Glucose 117 mg/dL (65-115); Osmolality Calculated 280 mOsm/kg (285-295); Potassium 4.1 mmol/L (3.5-5.1); Sodium 135 mmol/L (136-145)
--- NOTE | 2022-09-19 15:19 | ANE.PACU2 ---
Inpatient post-anesthesia follow up: Airway intact: Yes Vital signs: Temperature 97.3 F Pulse Rate 79 Respiratory Rate 16 Blood Pressure 108/64 Pulse Oximetry 94 Oxygen Delivery Me thod Room Air Oxygen Flow Rate Fraction of Inspir ed Oxygen Hydration adequate: Yes Nausea and vomiting: No Pain level: 2 Mental status: Baseline
[2022-09-27 06:53] LABS: Mismatch Repari Proteins-IHC See Report
== END 2022-09-19 10:33 | disposition home or self-care (01) ==
PROVIDERS: PCP Family Medicine; Visit Provider Surgery
PROC: 0DJD8ZZ Inspection of Lower Intestinal Tract, Via Natural or Artificial Opening Endoscopic (ICD-10-PCS; CPT 45378; principal; 2022-09-19 09:00)
DX: Z12.11 Encounter for screening for malignant neoplasm of colon (principal); D12.2 Benign neoplasm of ascending colon; D12.3 Benign neoplasm of transverse colon; C18.5 Malignant neoplasm of splenic flexure; D12.8 Benign neoplasm of rectum; J45.909 Unspecified asthma, uncomplicated; G47.30 Sleep apnea, unspecified; I48.91 Unspecified atrial fibrillation; I10 Essential (primary) hypertension; E78.5 Hyperlipidemia, unspecified; Z86.16 Personal history of COVID-19; Z87.891 Personal history of nicotine dependence; K76.9 Liver disease, unspecified
CPT/HCPCS: 36415; 45380; 45381; 45385; 80048; 82378; 85025; 88305; 88342; 88360; J2704; J7030

== ENCOUNTER → 2022-09-26 14:34 | Outpatient (BNVA) | payer MEDICARE, SELFPAY | PROVIDERS: PCP Family Medicine; Visit Provider Surgery | DX: C18.9 Malignant neoplasm of colon, unspecified (principal); K76.9 Liver disease, unspecified | CPT/HCPCS: 99213 ==

== ENCOUNTER 2022-10-01 11:42 | Outpatient (CLI) | payer MEDICARE, SELFPAY ==
--- NOTE | 2022-10-01 13:00 | MR_ITS ---
WS: [id number] MRI ABDOMEN with and without CONTRAST. COMPARISON: Prior CT 07/18/2022, gallbladder ultrasound 07/19/2022, prior CT 12/07/2020. Multiplanar, multisequence imaging is performed with and without contrast. MultiHance 20 mL IV. History: Indeterminate liver lesion. History of colon cancer. Liver is normal size. Previously described low-attenuation mass in the RIGHT lobe of the liver is kristofer ntified. Very difficult to visualize due to motion. Very minimally hyperintense mass is identified on several of the sequences. On the fast echo in phase imaging there is a very subtle mass measuring 2. 0 x 2.1 cm. Loss of signal on the out of phase imaging. On the postcontrast imaging there is no enhancement within the liver. Please note that several of the sequences are limited as the patient was unable to hold his breath for this examination. There is be en no increase in size or additional lesions within the liver. Heart is normal size. No pericardial or pleural effusion. Negative gallbladder. No bile duct dilatati on. Normal size spleen. Negative pancreas. No adrenal mass. Mild cortical thinning of each kidney. No obstruction. There is a mass in the upper pole of the posterior LEFT kidney measuring 3.0 x 2.2 cm. Hounsfield units are low on the prior CT from 07/18/2022 suggesting this is a cyst. This mass is not well visualized by MRI due to artifact from the metal in the spine. MR/MR abdomen wo/w con* [id number] IMPRESSION: 1. No enhancement identified in the mass in the RIGHT lobe of the liver measur ing 2.0 x 2.1 cm. Study is limited by breathing motion artifact. Recommend cont inued imaging surveillance and follow-up. Recommend follow-up CT abdomen, 2 pha ses, in 3 months to document continued stability. No increase in size since and no enhancement is evident. CT may be more beneficial as the patient was unable to hold his breath for the MRI. 2. LEFT renal mass noted to be a cyst on prior CT. Significant artifact on the MRI secondary to hardware in the patient's spine.
[2022-10-01] MEDS: gadobenate dimeglumine 20 mL vial IV (14:10)
== END 2022-10-01 11:43 | disposition home or self-care (01) ==
PROVIDERS: PCP Family Medicine; Visit Provider Surgery
DX: K76.9 Liver disease, unspecified (principal); Z85.038 Personal history of other malignant neoplasm of large intestine; N28.89 Other specified disorders of kidney and ureter
CPT/HCPCS: 74183; A9577

== ENCOUNTER → 2022-10-02 11:13 | Outpatient (BNVA) | payer MEDICARE, SELFPAY | PROVIDERS: PCP Family Medicine; Visit Provider Internal Medicine Cardiovascular Disease | DX: C18.9 Malignant neoplasm of colon, unspecified (principal); I48.20 Chronic atrial fibrillation, unspecified; K76.9 Liver disease, unspecified; G47.33 Obstructive sleep apnea (adult) (pediatric); I48.91 Unspecified atrial fibrillation; E78.5 Hyperlipidemia, unspecified; I11.9 Hypertensive heart disease without heart failure; Z87.891 Personal history of nicotine dependence | CPT/HCPCS: 99214 ==

== ENCOUNTER 2022-10-05 10:30 | Outpatient (CLI) | payer MEDICARE, SELFPAY ==
[2022-10-05 10:56] VITALS: BMI 39.5
--- NOTE | 2022-10-05 10:57 | NMCV_ITS ---
NM jaja perf SPECT r/s* [id number] Charan Voss Age: 67 Gender: M : 1955 Exam Date: 10/05/2022 10:57 Ordering Phys: Ignacio Chaudhari MD ([email or web address]) Technologist: JOSE ALEJANDRO Miranda Exam Location: [facility] Indications: CHRONIC A FIB PRE SURGERY STRESS TEST Please see separate stress test report in [facility] for full findings IMAGE PROTOCOL Rest/Stress 1 Lexiscan Day Radiopharmaceutical Dose (mCi) Administration Site Administered by Rest: Tc-99m 10.5 IV JOSE ALEJANDRO Almeida Sestamibi Stress:Tc-99m 33.0 IV JOSE ALEJANDRO Almeida Sestamibi Rest: 05-Oct-2022 60 Discovery 630 Stress: 05-Oct-2022 30 Discovery 630 0.4mg Lexiscan. Supine position only as patient was unable to lay prone. SPECT RESULTS Technical Quality: Excellent Raw Data Analysis: Normal Image Corrections: No attenuation or motion correction applied Summed Stress Score: 0 Summed Rest Score: 1 Summed Difference Score: 0 PERFUSION FINDINGS SPECT images demonstrate homogeneous tracer distribution throughout the myocardium. FUNCTIONAL RESULTS (calculated via Gated SPECT) Stress Image LV EF (%): 74 Stress EDV (mL):163 TID: 0.94 Stress ESV (mL):42 FUNCTIONAL FINDINGS: The left ventricle is normal in size. Transient Ischemia Dilatation of 0.94. The left ventricular ejection fraction is normal with a value of 74%. There is normal left ventricular wall thickening. IMPRESSIONS 1. Myocardial perfusion imaging is normal. 2. Overall left ventricular systolic function is normal without regional wall motion abnormalities, LVEF=74%. 3. EKG portion of the study will be reported separately. 4. Scan indicates low risk for cardiac events. Yancy Valentin MD (Electronically Signed) Final Date: 05 October 2022 13:58 S
--- NOTE | 2022-10-05 10:57 | ECG_ITS ---
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 Interpretive Statements NAME OF STUDY: LEXISCAN SESTAMIBI STRESS TEST INDICATION: Chest Pain PROCEDURE: At the baseline, the blood pressure was 105/70 mm Hg with a heart rate of 76 bpm with oxygen saturation of 93%. The electrocardiogram showed atrial fibrillation. possible old anterior MT. Non specific ST-T wave changes. ??? The Lexiscan was infused over a period of 20 seconds. A total of 0.4 milligrams of Lexiscan was infused. The stress phase was continued for a total of 5 minutes. Heart rate at the end of the stress phase was 73 bpm and oxygen saturation of 93% with a blood pressure of 83/59 mm Hg. The EKG at the peak infusion revealed no significant ST -T wave changes. ??? Sestamibi was injected 20 seconds after the Lexiscan infusion. ??? Blood pressure at the end of the recovery phase was 109/64 mm Hg with a heart rate of 80 beats per minute. ??? CONCLUSION: 1. No significant EKG changes with the LexiScan infusion. 2. No LexiScan induced chest pain or cardiac arrhythmia. 3. Normal blood pressure and heart rate response. 4. Sestamibi/sestamibi perfusion scan pending; see separate report. Electronically Signed On 10-21-2022 9:53:56 NATUROPATHIC PHYSICIAN by Yancy Valentin M.D. [id number]
[2022-10-05] MEDS: regadenoson 0.4 Mg/5 ml Syringe IVP (13:02)
[2022-10-05 14:13] VITALS: BP 109/64; PULSE 82
== END 2022-10-05 10:31 | disposition home or self-care (01) ==
PROVIDERS: PCP Family Medicine; Visit Provider Internal Medicine Cardiovascular Disease
DX: I48.91 Unspecified atrial fibrillation (principal); R16.0 Hepatomegaly, not elsewhere classified; C18.9 Malignant neoplasm of colon, unspecified; I48.20 Chronic atrial fibrillation, unspecified
CPT/HCPCS: 36415; 78452; 93017; 96374; 99212; A9500; J2785

== ENCOUNTER 2022-10-08 13:46 | Inpatient (IN) | payer MEDICARE, SELFPAY ==
--- NOTE | 2022-10-05 14:31 | ANES.PREANE2 ---
Pre-Anesthetic Assessment Height/Weight: Height 1.93 m Weight 147.418 kg Operation Date: 10/08/22 07:00 Proposed Procedures p Laparoscopic Left Hemicolectomy 96427/c18.9/k76.9(Left) - Isaias Soares DO Familial anesthetic complications: none Was Beta Larissa taken within 24 hours: Yes Was Clonidine taken within 24 hours: N/A Social No alcohol and No tobacco (h/o smoking) Exam alert, oriented x 3 and clear to auscultation bilaterally irregular Airway Submandibular: within normal limits Cervical ROM: within normal limits Mallampati: Class I Dentition: false Pulmonary Asthma, Chronic Obstructive Pulmonary Disease and Sleep Apnea CV/HEM Atrial Fibrillation and Hypertension Xarelto, polycythemia GI colon mass Metabolic Hyperlipidemia and Morbid Obesity Musc/skel Lower Back Pain and Osteoarthritis/DJD Anesthetic Plan ASA status: 3 Anesthesia: General Other: Stress Test pending from 10/05/22 Medications/Allergies Home Medications Medication Instructions Recorded Confirmed Last Taken Type allopurinol 300 mg tablet 300 mg PO DAILY@219910/15/19 10/05/22 10/05/22 History folic acid 1 mg tablet 1 mg PO DAILY@219910/15/19 10/05/22 10/05/22 History multivitamin 6 tab PO DAILY@219910/15/19 10/05/22 10/05/22 History trazodone 300 mg tablet 300 mg PO BEDTIME 10/15/19 10/05/22 10/05/22 History ascorbic acid (vitamin C) 1,000 mg 1,000 mg PO DAILY@219910/27/19 10/05/22 10/05/22 History tablet (Vitamin C) sennosides 8.6 mg tablet (senna) 8.6 mg PO DAILY PRN Constipation 10/27/19 10/05/22 10/26/19 History vitamin E 670 mg (1,000 unit) 1,000 unit PO DAILY@219910/27/19 10/05/22 10/05/22 History capsule triamcinolone acetonide 0.1 % 1 applic topical BID apply to 05/25/20 10/05/22 10/05/22 Rx topical ointment affected area #30 grams biotin 1 mg tablet 1 mg PO DAILY 11/15/20 10/05/22 10/05/22 History cholecalciferol (vitamin D3) 10 10 mcg PO DAILY 11/15/20 10/05/22 10/05/22 History mcg/mL (400 unit/mL) oral drops glucosamine 750 mg-chondroit 100 2 tab PO DAILY 11/15/20 10/05/22 10/05/22 History mg-msm-D3 25 [id number] bor tablet lycopene 10 mg capsule 10 mg PO DAILY 11/15/20 10/05/22 10/05/22 History resveratrol 250 mg capsule 250 mg PO DAILY 11/15/20 10/05/22 10/05/22 History saw palmetto 500 mg capsule 500 mg PO DAILY 11/15/20 10/05/22 10/05/22 History Custom Molded Orthotics #1 ea 10/30/21 10/03/22 Unknown Rx Night splint to Right #1 ea 10/30/21 10/03/22 Unknown Rx lisinopril 2.5 mg tablet 20 mg PO DAILY 11/21/21 10/05/22 10/05/22 History loratadine 10 mg tablet (Claritin) 10 mg PO DAILY@2200 PRN Allergy 11/21/21 10/05/22 07/17/22 History Symptoms lovastatin 40 mg tablet 40 mg PO DAILY 11/21/21 10/05/22 10/05/22 History budesonide-formoterol HFA 80 2 puff inhalation BID@ #10.2 01/19/22 10/05/22 10/05/22 Rx mcg-4.5 mcg/actuation aerosol grams inhaler (Symbicort) testosterone cypionate 200 mg/mL 120 mg (0.6 mL) IM Q7D #10 mL 06/21/22 10/05/22 10/02/22 Rx intramuscular oil bisoprolol 10 2 tab PO DAILY 07/18/22 10/05/22 10/05/22 History mg-hydrochlorothiazide 6.25 mg tablet ketoconazole 2 % shampoo 1 applic topical DAILY PRN Dry Skin 07/18/22 10/05/22 10/05/22 History acetaminophen 325 mg capsule 325 mg PO QID PRN Pain 09/18/22 10/05/22 10/05/22 History tadalafil 20 mg tablet (Cialis) 20 mg PO DAILY PRN sexual activity 09/18/22 10/05/22 Unknown History melatonin 3 mg capsule 5 mg PO BEDTIME 10/02/22 10/05/22 10/05/22 History rivaroxaban 20 mg tablet (Xarelto) 20 mg PO DAILY 10/05/22 10/05/22 10/04/22 History Allergies Allergy/AdvReac Type Severity Reaction Status Date / Time oats Allergy DIARRHEA Verified 10/05/22 11:30 apixaban [From Eliquis] AdvReac Severe Headaches Verified 10/05/22 11:30 caffeine AdvReac Unknown PALPITATION Verified 10/05/22 11:30 S apple AdvReac DIARRHEA, Verified 10/05/22 11:30 VOMITING AND CRAMPING egg AdvReac DIARRHEA, Verified 10/05/22 11:30 VOMITING AND STOMACH CRAMPING meperidine [From Demerol] AdvReac EXCESSIVE Verified 10/05/22 11:30 SEDATION morphine AdvReac HALLUCINATI Verified 10/05/22 11:30 ONS berries Allergy Unknown Uncoded 10/05/22 11:18 raw tomatoes Allergy ADR-Gastrointestinal Uncoded 10/05/22 11:30 Upset FRYE AdvReac DIARRHEA Uncoded 10/05/22 11:18 PFSH Anesthesia Medical History Afib Allergies Asperger syndrome mild Asthma Bilateral knee pain Cardiomegaly Chronic low back pain Chronic pain syndrome Chronic sinusitis of both maxillary sinuses COVID-19 determined by clinical diagnostic criteria Degenerative joint disease (DJD) of lumbar spine Erectile dysfunction Gout Hypertension New onset a-fib Opioid contract exists Osteoarthritis of hands, bilateral Osteoarthritis of knees, bilateral Pain in left shoulder Polycythemia Restrictive lung disease due to kyphoscoliosis Right renal stone Substernal goiter Suspected exposure to asbestos Testosterone deficiency On TRT for 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 Surgical History H/O ankle fusion H/O arthroscopic knee surgery H/O wrist surgery History of appendectomy History of back surgery History of shoulder surgery S/P ureteral stent placement Family History Grandfather CAD (coronary artery disease) Family/Other Cancer Grandmother Dementia Stroke Mother Lung disease Other Hypertension Denies family history of Rheumatoid arthritis Diabetes Lupus Clotting disorder Hyperlipidemia Chronic kidney disease (CKD) Suicide Anesthesia complication Bleeding disorder Social History Smoking and tobacco status: former smoker Quit status (tobacco): has quit using tobacco Year quit tobacco: 1975 [id number] Second hand smoke exposure: Yes Smoking risk assessment/counseling performed?: Yes Alcohol intake: never Adopted: No Caregiver/support person: No Lives independently: Yes Household members: none Housing: House Marital status: / service: No Current occupational status: retired Pets and animals: Yes History of recent travel: No Current gender identity: Male Data Anesthesia Cardiac Studies: Echocardiogram Ultrasound 10/17/20 Sestamibi Stress Test (Cardiology) 10/05/22
[2022-10-08] VITALS (41 sets, daily range): BP systolic 87–130; BP diastolic 40–83; PULSE 92–147; RESP 9–37; TEMP 36.1–37.2; O2SAT 89–99
[2022-10-08] MEDS: sodium chloride 0.9% 1,000 ML 30 ML IV (06:27)
--- NOTE | 2022-10-08 06:50 | P.ANESUD_ITS ---
Pre-Anesthetic Update Pre-Anesthetic Assessment: Date of Surgery/Procedure: 10/08/22 Preop Marilynn gnosis: Colon Cancer Proposed Procedure: Operation Date: 10/08/22 07:00 Proposed Procedures p Laparoscopic Left Hemicolectomy 77969/c18.9/k76.9(Left) - Isaias Soares, DO Any changes to Pre-Anesthetic Assessment?: No Last Intake: Intake Last Liquid Date 10/07/22 Last Liquid Time 22:00 Last Solid Date 10/06/22 Vitals: Temperature 97.0 F L 10/08/22 06:00 Temperature Source Temporal Artery S can 10/08/22 06:00 Pulse Rate 92 10/08/22 06:00 Respiratory Rate 18 10/08/22 06:00 Blood Pressure 123/80 10/08/22 06:00 Blood Pressure Michell n 94 10/08/22 06:00 Pulse Oximetry 92 10/08/22 06:00 Oxygen Delivery Me thod 10/08/22 06:34 Exam: Pre-Anes Outpt Exam: alert, oriented x 3, clear to auscultation bilaterally and regular rate & rhythm Cardiac Studies: Echocardiogram Ultrasound 10/17/20 Sestamibi Stress Test (Cardiology) 10/05
--- NOTE | 2022-10-08 07:00 | W.PM.OPSUD ---
Surgery/Procedure H&P Update DATE OF PROCEDURE: October 08, 2022 DATE H&P PERFORMED: 09/26/22 PREOP DIAGNOSIS: Colon Cancer PLANNED PROCEDURE: Operation Date: 10/08/22 07:00 Proposed Procedures p Laparoscopic Left Hemicolectomy 48083/c18.9/k76.9(Left) - Isaias Soares DO
[2022-10-08 07:07] LABS: Basophils # 0.1 10^3/uL (0.0-0.1); Basophils % 0.9 %; Eosinophils # 0.4 10^3/uL (0.0-0.8); Eosinophils % 5.6 %; Hematocrit 51.7 % (42.0-52.0); Hemoglobin 16.7 g/dL (11.7-16.6); Lymphocytes % 31.1 %; Mean Corpuscular HGB Conc 32.3 g/dL (30.0-36.0); Mean Corpuscular Hemoglobin 31.2 pg (28.0-34.0); Mean Corpuscular Volume 96.6 fl (80-94); Monocytes # 0.6 10^3/uL (0.2-0.9); Monocytes % 9.6 %; Neutrophils # 3.36 10^3/uL (1.8-7.7); Nucleated Red Blood Cells % 0 %; Platelet Count 221 10^3/cmm (130-400); Red Blood Count 5.35 10^6/uL (4.1-5.3); Red Cell Distribution Width 15.4 % (12.1-15.1); White Blood Count 6.5 10^3/uL (4.0-10.0)
[2022-10-08 07:10] LABS: Carcinoembryonic Antigen 18.4 ng/mL (0.0-4.7)
[2022-10-08 07:21] LABS: Anion Gap 14.9 (5-19); Blood Urea Nitrogen 9 mg/dL (8-23); Calcium 8.7 mg/dL (8.5-10.5); Carbon Dioxide 24 mmol/L (22-29); Chloride 100 mmol/L (98-107); Glomerular Filtration Rate 96.4 mL/min (90-130); Glucose 99 mg/dL (65-115); Osmolality Calculated 279 mOsm/kg (285-295); Potassium 3.9 mmol/L (3.5-5.1); Sodium 135 mmol/L (136-145)
[2022-10-08] MEDS: ceFOXitin 2,000 MG in sodium chloride 0.9% (plus) 50 ML 100 MG IV ×3 (08:00→22:51)
--- NOTE | 2022-10-08 12:55 | PM.OP ---
Operative Report Date of procedure: October 08, 2022 Pre-op diagnosis: Preop Diagnosis Colon Cancer Post-op diagnosis: same Procedure done: Laparoscopic converted to open left hemicolectomy Splenic flexure takedown Right colon mobilization Implants: Coseal Specimens removed/disposition: Left colon and anastomotic donuts Surgeon: Dr. Isaias Soares DO Anesthesia: General Estimated blood loss (mL): 375 Complications: None apparent Findings: Splenic flexure mass Brief History: This is a very pleasant 67-year-old gentleman who was found to have a splenic flexure colon cancer during routine colonoscopy. Left hemicolectomy was indicated. The risks and benefits were explained and documented. Procedure: Patient was wheeled in the operative room placed on the OR table in supine position. The abdomen was inspected prepped and draped in usual sterile fashion. A timeout was performed. All present were in agreement. After localizing with lidocaine with epinephrine, a stab incision was made in the left upper quadrant. A Veress needle was placed in the abdomen and abdomen was insufflated to 15 mmHg. A 12 mm trocar was placed in the umbilicus and three 5 mm trochars were placed in the right hemiabdomen. Patient was placed into Trendelenburg with left side up so as to move the small bowel into the right upper quadrant. The left white line of Toldt was identified and taken down sharply and bluntly. The tattoo was just proximal to the splenic flexure. The patient's abdomen was fairly large and dissection at the splenic flexure was somewhat difficult and hard to reach. Therefore I converted to an open procedure. A 10 blade scalpel was used to make a midline laparotomy. Ports were removed. A window was made in the mesentery and the omentum approximately 5 cm proximal to this and a 100 mm blue load MICH stapler was used to transect the colon. The Enseal was then used to transect the omentum superior to the transverse colon. Attention was then brought to the splenic flexure takedown. Careful dissection with electrocautery and Enseal was performed until the splenic flexure was freed from its attachments. The Enseal was then used to transect the mesentery and the left colic artery. A window was made at the rectosigmoid junction and a contour stapler with a blue load was used to transect the sigmoid colon at the rectum. Specimen was passed off. The anus was then serially dilated and a 33 mm EEA stapler was chosen. The right colon did not sufficiently stretch to the rectum without tension. Therefore the right colon was taken down. The right white line of Toldt was taken down with electrocautery and blunt dissection. This allowed adequate mobilization. The staple line in the right colon was then cut off with Capone scissors and anvil was placed into the colon. This was then sutured into place in a pursestring fashion with 3-0 silk. Future anastomotic site was then cleared of fat using blunt and sharp dissection. The EEA stapler was then introduced into the rectum and anastomosis was performed using a stapler. Care was taken not to get any other tissue and the stapler. A rigid sigmoidoscope was then placed into the anus and a leak test was performed. No leak was initially identified. CoSeal was then placed over the anastomosis. The abdomen was then inspected and irrigated. No further bleeding was seen. During this process a small leak was identified at the anastomosis. This was reinforced with 3-0 silk x3. A leak test was performed again and no leak was identified. Omentum was then brought down and around the anastomosis in the pelvis. A 19 Azeri Kurt drain was then placed into the pelvis, coming out of the right lower quadrant. The drain was sewn in place with 3-0 nylon. There was no tension or twisting at the anastomosis and hemostasis was noted. #1 PDS was then used to close the laparotomy incision in a running fashion. Skin pascual were then used to close the skin. Sterile dressings were applied. Patient tolerated the procedure well. NG tube was noted to be in the correct position prior to closure.
--- NOTE | 2022-10-08 13:24 | SUR.PHASEI ---
1323 oral airway removed at this time. spo2 97% on simple mask at 10L
[2022-10-08] MEDS: fentaNYL 50 mcg/mL INJ 2mL IVP ×2 (13:28→13:36)
--- NOTE | 2022-10-08 13:49 | SUR.PHASEI ---
PTS . CYNTHIA UPDATED ON PATIENTS ROOM NUMBER AND CONDITION.
[2022-10-08] MEDS: HYDROmorphone 1 mg/mL INJ 1 mL IVP ×4 (14:17→23:50)
[2022-10-08 14:21] LABS: Glucose Point of Care 117 mg/dL (70-110)
[2022-10-08] MEDS: sodium chloride 0.9% 1,000 ML 125 ML IV ×2 (14:24→18:55)
--- NOTE | 2022-10-08 14:34 | ECG_ITS ---
[facility] Test Date: 2022-10-08 Pat Name: Charan Voss Department: Room: 267 Gender: Male Manager Scheduling: : 1955 Requested By: Isaias Soares Order Number: [id number] Richard MD: Raiza Orourke M.D. Measurements Intervals [place] Rate: 128 P: 0 MD: 0 QRS: -39 QRSD: 105 T: 86 QT: 312 QTc: 456 Interpretive Statements ATRIAL FIBRILLATION WITH RAPID VENTRICULAR RESPONSE LEFT AXIS DEVIATION [QRS AXIS < -30] PATTERN CONSISTENT WITH PULMONARY DISEASE Compared to ECG 07/20/2022 16:13:27 Left-axis deviation now present Myocardial infarct finding no longer present Electronically Signed On 10-08-2022 20:31:54 CODING SUPPORT SPECIALIST by Raiza Orourke M.D. [id number]
[2022-10-08] MEDS: HYDROmorphone 1 mg/mL INJ 1 mL 0.5 MG IVP (15:02)
--- NOTE | 2022-10-08 15:55 | PM.CONSULT ---
Providers/Reason For Consult Consulting Physician/Specialty*: Frase/Hospitalist Reason for Consult*: tachycardia/afib with rvr Attending Physician: Isaias Soares DO Primary Care Provider: Al Álvarez MD History of Present Illness History of Present Illness Charan Voss is a 67 year old male who presented to [facility] on the day of admission for planned hemicolectomy by Dr. Soares. 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 Today he underwent a laparoscopic left hemicolectomy that was converted to open procedure with primary anastomosis. Postoperatively he was noted to be in atrial fibrillation with rapid ventricular response and hospitalist were consulted to assist with management for this reason. Patient has a known history of atrial fibrillation. He is chronically on Xarelto for anticoagulation and it looks like bisoprolol/hydrochlorothiazide as only potential rate controlling medication. He is seen postoperatively and after pain medication. History is obtained from him with short responses to questions and review of medical records. He denies any chest pain. He does complain of pain in his abdomen that feels like somebody took out my insides and then put some back in . He has had some borderline oxygen levels but denies shortness of breath. He had COVID at the beginning of August, requiring hospitalization overnight with some oxygen therapy in [place] as he was traveling. He was told by doctors in [place] that he had a cardiomyopathy or myocarditis. He was seen recently by Dr. Chaudhari and underwent myocardial perfusion imaging which was unremarkable for any ischemia. Ejection fraction was noted to be normal. He has had echocardiograms that were of poor quality the last few times they have been checked. He says his breathing has been okay more recently. He has known asthma as well as restrictive lung disease secondary to kyphoscoliosis. He has a history of obstructive sleep apnea but his CPAP is not currently working. Not on home oxygen. He has seen Dr. Morales in the past. 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 Has been seen by Dr. Orourke previously. As instructed he did not take his usual medications this morning. He has not had his Xarelto for about 5 days. On my arrival patient's heart rate is in the 130s to 150s and irregular. He is not particularly symptomatic. Blood pressures have ranged from 90s to 110s systolic. Review of Systems Const: Denies: fever(s) Card: Denies: chest pain or edema Resp: Denies: dyspnea or wheezing GI: Reports: abdominal pain and other (NG tube) : Reports: other (Orellana catheter, feels like he has to urinate) Medications/Allergies Home Medications Medication Instructions Recorded Confirmed Last Taken Type allopurinol 300 mg tablet 300 mg PO DAILY@219910/15/19 10/05/22 10/07/22 History folic acid 1 mg tablet 1 mg PO DAILY@219910/15/19 10/05/22 10/07/22 History multivitamin 6 tab PO DAILY@219910/15/19 10/05/22 10/07/22 History trazodone 300 mg tablet 300 mg PO BEDTIME 10/15/19 10/05/22 10/07/22 History ascorbic acid (vitamin C) 1,000 mg 1,000 mg PO DAILY@219910/27/19 10/05/22 10/07/22 History tablet (Vitamin C) sennosides 8.6 mg tablet (senna) 8.6 mg PO DAILY PRN Constipation 10/27/19 10/08/22 10/07/22 History vitamin E 670 mg (1,000 unit) 1,000 unit PO DAILY@219910/27/19 10/05/22 10/06/22 History capsule triamcinolone acetonide 0.1 % 1 applic topical BID apply to 05/25/20 10/05/22 10/07/22 Rx topical ointment affected area #30 grams biotin 1 mg tablet 1 mg PO DAILY 11/15/20 10/05/22 10/07/22 History cholecalciferol (vitamin D3) 10 10 mcg PO DAILY 11/15/20 10/05/22 10/07/22 History mcg/mL (400 unit/mL) oral drops glucosamine 750 mg-chondroit 100 2 tab PO DAILY 11/15/20 10/05/22 10/07/22 History mg-msm-D3 25 tka-goff-vbt bor tablet lycopene 10 mg capsule 10 mg PO DAILY 11/15/20 10/05/22 10/07/22 History resveratrol 250 mg capsule 250 mg PO DAILY 11/15/20 10/05/22 10/07/22 History saw palmetto 500 mg capsule 500 mg PO DAILY 11/15/20 10/05/22 10/07/22 History Custom Molded Orthotics #1 ea 10/30/21 10/03/22 Unknown Rx Night splint to Right #1 ea 10/30/21 10/03/22 Unknown Rx lisinopril 2.5 mg tablet 20 mg PO DAILY 11/21/21 10/05/22 10/06/22 History loratadine 10 mg tablet (Claritin) 10 mg PO DAILY@2200 PRN Allergy 11/21/21 10/08/22 10/07/22 History Symptoms lovastatin 40 mg tablet 40 mg PO DAILY 11/21/21 10/05/22 10/07/22 History budesonide-formoterol HFA 80 2 puff inhalation BID@ #10.2 01/19/22 10/05/22 10/06/22 Rx mcg-4.5 mcg/actuation aerosol grams inhaler (Symbicort) testosterone cypionate 200 mg/mL 120 mg (0.6 mL) IM Q7D #10 mL 06/21/22 10/05/22 10/02/22 Rx intramuscular oil bisoprolol 10 2 tab PO DAILY 07/18/22 10/05/22 10/07/22 History mg-hydrochlorothiazide 6.25 mg tablet ketoconazole 2 % shampoo 1 applic topical DAILY PRN Dry Skin 07/18/22 10/05/22 10/05/22 History acetaminophen 325 mg capsule 325 mg PO QID PRN Pain 09/18/22 10/05/22 10/06/22 History tadalafil 20 mg tablet (Cialis) 20 mg PO DAILY PRN sexual activity 09/18/22 10/08/22 10/07/22 History melatonin 3 mg capsule 5 mg PO BEDTIME 10/02/22 10/05/22 10/07/22 History rivaroxaban 20 mg tablet (Xarelto) 20 mg PO DAILY 10/05/22 10/05/22 10/04/22 History Allergies Allergy/AdvReac Type Severity Reaction Status Date / Time oats Allergy DIARRHEA Verified 10/08/22 06:11 apixaban [From Eliquis] AdvReac Severe Headaches Verified 10/08/22 06:11 caffeine AdvReac Unknown PALPITATION Verified 10/08/22 06:11 S apple AdvReac DIARRHEA, Verified 10/08/22 06:11 VOMITING AND CRAMPING egg AdvReac DIARRHEA, Verified 10/08/22 06:11 VOMITING AND STOMACH CRAMPING meperidine [From Demerol] AdvReac EXCESSIVE Verified 10/08/22 06:11 SEDATION morphine AdvReac HALLUCINATI Verified 10/08/22 06:11 ONS berries Allergy Unknown Uncoded 10/08/22 06:11 raw tomatoes Allergy ADR-Gastrointestinal Uncoded 10/08/22 06:11 Upset FRYE AdvReac DIARRHEA Uncoded 10/08/22 06:11 Current Medications Generic Name Dose Route Start Last Admin Trade Name Freq PRN Reason Stop Dose Admin Heparin Sodium (Porcine) 5,000 unit 10/08/22 13:15 10/08/22 14:25 Heparin 5,000 Unit/Ml Inj 1 Ml SUBCUT Not Given Q12H SOFIA Sodium Chloride 1,000 mls @ 30 mls/hr 10/08/22 06:00 10/08/22 06:27 Sodium Chloride 0.9% IV 10/09/22 05:59 30 mls/hr .Q24H SOFIA Administration Sodium Chloride 1,000 mls @ 100 mls/hr 10/08/22 06:00 10/08/22 15:13 Sodium Chloride 0.9% IV 10/09/22 05:59 Not Given .Q10H SOFIA Sodium Chloride 1,000 mls @ 125 mls/hr 10/08/22 13:15 10/08/22 14:24 Sodium Chloride 0.9% IV 125 mls/hr .Q8H SOFIA Administration Cefoxitin Sodium 2,000 mg/ 50 mls @ 100 mls/hr 10/08/22 15:15 10/08/22 15:30 Sodium Chloride IV 100 mls/hr Q6H SOFIA Administration Protocol PFSH Acute PFSH: Medical History (Updated 10/08/22 @ 17:31 by Lata Salmeron MD) Afib Allergies Asperger syndrome mild Asthma Cardiomegaly Chronic low back pain Chronic pain syndrome Chronic sinusitis of both maxillary sinuses COVID-19 determined by clinical diagnostic criteria Degenerative joint disease (DJD) of lumbar spine Dyslipidemia Erectile dysfunction Gout Hypertension 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 Obstructive sleep apnea Opioid contract exists Osteoarthritis of hands, bilateral Osteoarthritis of knees, bilateral Polycythemia Restrictive lung disease due to kyphoscoliosis Right renal stone Substernal goiter Suspected exposure to asbestos Testosterone deficiency On TRT for 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 Surgical History (Updated 10/08/22 @ 16:05 by Lata Salmeron MD) H/O ankle fusion H/O arthroscopic knee surgery H/O wrist surgery History of appendectomy History of back surgery History of shoulder surgery S/P ureteral stent placement Family History Grandfather CAD (coronary artery disease) Family/Other Cancer Grandmother Dementia Stroke Mother Lung disease Other Hypertension Denies family history of Rheumatoid arthritis Diabetes Lupus Clotting disorder Hyperlipidemia Chronic kidney disease (CKD) Suicide Anesthesia complication Bleeding disorder Social History (Updated 10/08/22 @ 17:38 by Lata Salmeron MD) Smoking and tobacco status: former smoker Quit status (tobacco): has quit using tobacco Year quit tobacco: 1975 [id number] Second hand smoke exposure: Yes Alcohol intake: never Substance/Drug Use: never Adopted: No Caregiver/support person: No Lives independently: Yes Household members: none Housing: House Marital status: / service: No Current occupational status: retired Pets and animals: Yes Current gender identity: Male Vitals/I&O/Wt Last Vital Signs Temp 98.4 F 10/08/22 15:26 Pulse 147 H 10/08/22 15:26 Resp 18 10/08/22 15:26 BP 94/53 10/08/22 15:26 Pulse Ox 95 10/08/22 15:26 O2 Del Method 10/08/22 15:26 O2 Flow Rate 8 10/08/22 15:26 10/08/22 10/08/22 10/08/22 06:59 14:59 22:59 Intake Total 3150 / 3150 Output Total 645 / 645 Balance 2505 / 2505 Physical Exam Narrative: Patient is sleepy but will arouse, wearing oxygen, keeping his eyes closed for the most part. He has a tachycardic irregular rhythm. Lungs are clear without any wheezes or rhonchi, no rales. No retractions. Abdomen with postoperative dressings clean dry and intact, no bowel sounds. Orellana catheter is in place. Speech is clear, moves all extremities, no abnormal movements. Urinary Catheter Management: Orellana: Cath Placed During This Visit: yes Urinary Catheter Date of Insertion: 10/08/22 Urinary Catheter Time of Insertion: 07:20 Data 10/08/22 06:30 10/08/22 06:30 A&P Assessment and plan (1) Status post left hemicolectomy: POD #0, done for adenocarcinoma of splenic flexure identified on routine colon cancer screening recently. Groggy postoperatively but will answer questions. Primary complaint is pain consistent with surgical procedure. (2) Atrial fibrillation with rapid ventricular response: In a patient with known chronic atrial fibrillation, apparently on bisoprolol in combination with HCTZ as only rate controlling medication, has been on Xarelto for anticoagulation, but held 5 days ago for planned surgery. Currently with atrial fibrillation with rapid ventricular response post-operatively. Did not take his usual medications today. Has TAYLOR with inoperable cpap at home and currently unable to utilize cpap therapy due to NGT/GI surgery. Has asthma/restrictive lung disease from scoliosis but does not currently appear acute. 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 Has myocardial perfusion study on 10/05/22. Sneha-opertative period can see atrial fibrillation, with or without rapid ventricular response. Reported blood and volume losses noted. Blood pressures are maintaining. Improved but not fully controlled after IV beta blockade dosing. 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 No current complaints of chest pain though need to try to maintain rate control. Had myocardial perfusion imaging on October 05, 2022 that did not show evidence of ischemia and revealed a normal ejection fraction. (4) Polycythemia: Secondary, has been managed with blood donation periodically. Preoperative hemoglobin 16.7. Has had hemoglobin as high as 20 within the past 2 years. (5) Obstructive sleep apnea: Not currently using cpap at home due to malfunction of machine. (6) Hypertension: Chronic diagnosis, usually on bisoprolol-HCTZ and lisinopril. Both held prior to surgery. Currently with low normal blood pressures in setting of recent medications and post-operative state. (7) Dyslipidemia: Chronically on statin therapy. (8) Asthma: Does not appear acutely exacerbated at present. Chronically on budesonide-fomoterol HFA. 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 (11) COVID-19: Had COVID in early 08/2022 and was hospitalized in [place] briefly needing oxygen. (12) Goiter: Last TSH recorded in our system is from 09/2020, low normal. (13) Gout: Chronically on allopurinol Plan Will try IV beta-blockade followed by IV calcium channel mahogany initially to try to achieve rate control Additional fluid bolus Monitor overall volume status closely Serial cardiac enzymes and EKGs Telemetry monitoring Repeat hemoglobin and electrolytes, including magnesium Check TSH Check baseline ABG Monitor blood pressures for signs of hemodynamic instability or need to add antihypertensive agents Monitor for signs of significant apnea which may be contributing factor Unfortunately with NG tube in place and recent GI surgery unable to utilize CPAP or BiPAP currently Oxygen therapy if needed Breathing treatments including budesonide have been ordered Incentive spirometer while awake Currently all oral medications are held including the following notable medications: bisoprolol/HCTZ, lisinopril, lovastatin, allopurinol, Xarelto Subcutaneous heparin has been initiated postoperatively for DVT prophylaxis along with SCDs Once okay from surgical standpoint anticipate transition back to home Xarelto Resumption of cardiac medications will depend on blood pressure and heart rate at that time At risk of developing acute gouty attack perioperatively, will monitor Other usual perioperative management as per surgery Supportive care otherwise Full code Management of atrial fibrillation will be more challenging until we are able to resume oral medications. We will follow along, managing with intravenous medications presently along with further work-up as described above. Reviewed with patient plans of care and gave him an opportunity to ask questions. Next cardiology follow-up appointment is not scheduled until March 2023. If requires significant changes to medications for atrial fibrillation recommend scheduling sooner follow-up with Dr. Orourke or other cardiology provider. Thank you very much for consultation. Consult Attestations Medical Necessity Statement: As per surgery Other Attestations: Other Attestations: High-level medical decision making based on uncontrolled atrial fibrillation requiring IV drug therapy for treatment, monitoring along with repeated posttreatment evaluations. Previous medical records reviewed from multiple physicians. Perioperative records today reviewed. Results of preoperative labs reviewed. Cardiac enzymes, CBC, BMP with magnesium, EKG ordered. Total time 65 minutes including previsit chart review, patient examination and history, post visit documentation and ordering. Coding Level of Care Code Acute Soft Metals Hand Engraver for Chg Fwd Diagnoses Status post left hemicolectomy Z90.49 Atrial fibrillation with rapid ventricular response I48.91 Myocardial bridge Q24.5 Polycythemia D75.1 Obstructive sleep apnea G47.33 Hypertension I10 Dyslipidemia E78.5 Asthma J45.30 Asthma severity: mild Asthma persistence: persistent Asthma complication type: uncomplicated Restrictive lung disease due to kyphoscoliosis J98.4; M41.9 Degenerative joint disease (DJD) of lumbar spine M47.816 COVID-19 U07.1 Goiter E04.9 Gout M10.9
[2022-10-08] MEDS: metoprolol tartrate 1 mg/1 mL SDV 5 mL 5 MG IVP (16:04)
[2022-10-08] MEDS: sodium chloride 0.9% 500 ML IV ×2 (16:04→17:29)
--- NOTE | 2022-10-08 16:48 | ECG_ITS ---
[facility] Test Date: 2022-10-08 Pat Name: Charan Voss Department: Room: 267 Gender: Male Academic Manager: : 1955 Requested By: Lata Salmeron Order Number: [id number] Hilary MD: Raiza Orourke M.D. Measurements Intervals [place] Rate: 129 P: 0 [place]: 0 QRS: -47 QRSD: 105 T: 93 QT: 288 QTc: 422 Interpretive Statements ATRIAL FIBRILLATION WITH RAPID VENTRICULAR RESPONSE LEFT ANTERIOR FASCICULAR BLOCK [QRS AXIS <= -45, QR IN I, RS IN II] POSSIBLE ANTERIOR MYOCARDIAL INFARCTION , OF INDETERMINATE AGE [30 ms Q WAVE IN V3/V4, OR R < 0.2 mV IN V4] Compared to ECG 10/08/2022 14:33:45 Left anterior fascicular block now present Myocardial infarct finding now present Left-axis deviation no longer present Electronically Signed On 10-08-2022 20:38:29 TRUCK JUMPER by Raiza Orourke M.D. [id number]
[2022-10-08] MEDS: dilTIAZem 5 mg/mL SDV 5 mL IVP (16:56)
[2022-10-08] MEDS: sodium chlor 0.9% + KCl 20 mEq 20 MEQ/1,000 ML BAG 125 MEQ IV (17:30)
[2022-10-08 17:32] LABS: Basophils % 0.3 %; Hematocrit 51.2 % (42.0-52.0); Hemoglobin 15.7 g/dL (11.7-16.6); Lymphocytes # 0.8 10^3/uL (0.8-4.8); Lymphocytes % 5.7 %; Mean Corpuscular HGB Conc 30.7 g/dL (30.0-36.0); Mean Corpuscular Hemoglobin 31.2 pg (28.0-34.0); Mean Corpuscular Volume 101.6 fl (80-94); Mean Platelet Volume 9.5 fL (7.4-10.4); Monocytes % 6.5 %; Neutrophils # 12.92 10^3/uL (1.8-7.7); Neutrophils % 87.2 %; Nucleated Red Blood Cells % 0 %; Platelet Count 206 10^3/cmm (130-400); Red Blood Count 5.04 10^6/uL (4.1-5.3); Red Cell Distribution Width 15.4 % (12.1-15.1); White Blood Count 14.8 10^3/uL (4.0-10.0)
[2022-10-08] MEDS: dilTIAZem 5 mg/mL SDV 5 mL 10 MG IVP (17:42)
[2022-10-08 18:02] LABS: Anion Gap 15.8 (5-19); Blood Urea Nitrogen 11 mg/dL (8-23); Calcium 7.7 mg/dL (8.5-10.5); Carbon Dioxide 24 mmol/L (22-29); Chloride 106 mmol/L (98-107); Glomerular Filtration Rate 60.4 mL/min (90-130); Glucose 139 mg/dL (65-115); Magnesium 1.4 mg/dL (1.7-2.3); Osmolality Calculated 290 mOsm/kg (285-295); Sodium 139 mmol/L (136-145); Troponin(5th) Baseline 27 ng/L (0-15)
[2022-10-08 18:09] LABS: Base Excess ABG -6.5 mmol/L (-2.0-2.0); Blood Gas Allen Test Pos; Blood Gas Sample Site Radial, right; Blood Gas Sample Type Arterial; HCO3 ABG 23.1 mmol/L (22-26); PO2 ABG 81.7 mmHg (80.0-100.0)
[2022-10-08 18:10] LABS: Potassium 6.8 mmol/L (3.5-5.1)
[2022-10-08 18:11] LABS: Oxygen Device SIMPLE MASK
[2022-10-08 18:15] LABS: ABG PH Result 7.18 (7.35-7.45)
[2022-10-08] MEDS: magnesium sulfate premix 2 GM/50 ML PIGGYBACK IV (19:09)
[2022-10-08 19:14] LABS: NT Pro B Type Natriuretic Pept 513 pg/mL (0-125)
--- NOTE | 2022-10-08 19:35 | PC.NURSE ---
Patient arrived to floor via bed from PACU, on simple mask increased oxygen to 10L, patient AAOx4, soft BP, elevated heart rate and running afib, contacted physician and got EKG and physician placed multiple orders. Patient has had good output through MISTI drain that is sanginous. Patient in high amount of pain rating at top scale (see chart). Pain not controlled by pain medication physician aware and orders placed. Report called to ICU Robin RN. Will transfer when room is clean. Kary QUIROZ assuming care until that point and report given at bedside. updated on condition.
[2022-10-08 20:15] LABS: Troponin 5 2HR 29.84 ng/L (0-15)
[2022-10-08 20:16] LABS: Troponin 5 2HR Delta 2.84 ABS# (0-10)
[2022-10-08 20:17] LABS: Anion Gap 12.1 (5-19); Blood Urea Nitrogen 12 mg/dL (8-23); Calcium 7.4 mg/dL (8.5-10.5); Carbon Dioxide 24 mmol/L (22-29); Chloride 106 mmol/L (98-107); Glomerular Filtration Rate 55.1 mL/min (90-130); Glucose 147 mg/dL (65-115); Osmolality Calculated 282 mOsm/kg (285-295); Sodium 135 mmol/L (136-145)
[2022-10-08 20:22] LABS: Potassium 7.1 mmol/L (3.5-5.1)
--- NOTE | 2022-10-08 20:48 | ECG_ITS ---
[facility] Test Date: 2022-10-08 Pat Name: Charan Voss Department: Room: [facility] Gender: Male Associate Professor Of Medicine: : 1955 Requested By: Lata Salmeron Order Number: [id number] Hilary MD: Lance Feliz M.D. Measurements Intervals [place] Rate: 109 P: 0 [place]: 0 QRS: -28 QRSD: 104 T: 108 QT: 306 QTc: 412 Interpretive Statements ATRIAL FIBRILLATION WITH RAPID VENTRICULAR RESPONSE SEPTAL MYOCARDIAL INFARCTION , OF INDETERMINATE AGE [40+ ms Q WAVE IN V1/V2] MODERATE T-WAVE ABNORMALITY, CONSIDER LATERAL ISCHEMIA [-0.1+ mV T-WAVE IN I/aVL/V5/V6] Compared to ECG 10/08/2022 16:53:29 T-wave abnormality now present Possible ischemia now present Left anterior fascicular block no longer present Myocardial infarct finding still present Electronically Signed On 10-09-2022 12:01:59 ASSOCIATE BRAND MANAGER by Lance Feliz M.D. [email or web address] [id number]
[2022-10-08] MEDS: calcium gluconate 0.9% NaCL 1 GM/50 ML PREMIX IV (20:57)
[2022-10-08] MEDS: sodium polystyrene sulfonate 15 gm/60 mL Btl NG-TUBE (20:58)
[2022-10-08] MEDS: budesonide 0.5 mg/2 mL Neb INHALATION (21:07)
[2022-10-08] MEDS: albuterol 2.5 mg/3 mL Neb INHALATION (21:09)
--- NOTE | 2022-10-08 21:20 | XRR_ITS ---
PROCEDURE INFORMATION: Exam: XR Chest Exam date and time: 10/08/2022 9:25 PM Age: 67 years old Clinical indication: Device placement; Ng tube; Additional info: Confirm placement of ng tube TECHNIQUE: Imaging protocol: Radiologic exam of the chest. Views: 1 view. COMPARISON: CT chest abd pel w con* 07/18/2022 6:32 PM FINDINGS: Tubes, catheters and devices: Gastric tube with tip in the mid stomach. Lungs: Mild atelectasis in the lung bases. Pleural spaces: Unremarkable. No pleural effusion. No pneumothorax. Heart/Mediastinum: Mild cardiomegaly. Diaphragm: Mild elevation of the left diaphragm. Bones/joints: Thoracolumbar fusion hardware. XR/XR chest 1V portable [id number] IMPRESSION: 1. Gastric tube tip in the mid stomach.
[2022-10-08 21:31] LABS: ABG PCO2 54.1 mmHg (35-45); ABG PH Result 7.25 (7.35-7.45); Arterial Blood Gas Hematocrit 47.8 % (42-52); Base Excess ABG -4.7 mmol/L (-2.0-2.0); Blood Gas Allen Test Pos; Blood Gas Operator Identificat JB; Blood Gas Sample Site Radial, right; Blood Gas Sample Type Arterial; HCO3 ABG 23.4 mmol/L (22-26); Oxygen Device OXY MASK; PO2 ABG 78.7 mmHg (80.0-100.0)
[2022-10-08] MEDS: insulin regular-human 10 UNIT in SYRINGE 1 EACH IVP (21:41)
[2022-10-08] MEDS: sodium chloride 0.9% 500 ML 999 ML IV (22:25)
[2022-10-08] MEDS: dilTIAZem 100 MG in sodium chloride 0.9% (add-van) 100 ML 12.5 MG IV (23:43)
[2022-10-08 23:44] LABS: Alanine Aminotransferase 21 U/L (0-41); Albumin Level 3.3 g/dL (3.5-5.2); Alkaline Phosphatase 41 U/L (40-130); Aspartate Amino Transferase 27 U/L (0-40); Blood Urea Nitrogen 14 mg/dL (8-23); Calcium 6.9 mg/dL (8.5-10.5); Carbon Dioxide 24 mmol/L (22-29); Chloride 107 mmol/L (98-107); Globulin 2.2 g/dL (1.3-4.6); Glomerular Filtration Rate 60.4 mL/min (90-130); Glucose 171 mg/dL (65-115); Osmolality Calculated 289 mOsm/kg (285-295); Sodium 137 mmol/L (136-145); Total Bilirubin 0.5 mg/dL (0.15-1.2); Total Protein 5.5 g/dL (6.6-8.7)
[2022-10-08 23:45] LABS: Anion Gap 12.3 (5-19); Potassium 6.3 mmol/L (3.5-5.1)
[2022-10-08 23:57] LABS: Troponin 5 6HR 33.17 ng/L (0-15)
[2022-10-09] VITALS (103 sets, daily range): BP systolic 77–151; BP diastolic 34–88; PULSE 87–122; RESP 5–39; TEMP 37.3–38; O2SAT 82–94
[2022-10-09 00:12] LABS: Troponin 5 6HR Delta 6.17 ng/L (0-12)
--- NOTE | 2022-10-09 01:30 | PC.NURSE ---
Patient arrived on unit form [facility]. Patient was AOx4, appeared anxious and concerned about pain control. Dilaudid had been admin prior to his arrival. Simple face mask was replaced by RT with an optimask and titrated down to 4L per Hospitalist verbal orders. Diltiazem drip was titrated according to protocol for HR about 110. Patient was comfortable and tolerated 4hr between next dose of Dilaudid. Patient did become slightly hypotensive with MAP in the low 60s. Order for 500ml bolus was received and Levo on standby if needed. Xray was ordered to confirm placement of NG tube. Incision dressings remain intact with no drainage. Wound drain remains patent. Urine output has been limited and remains dark yellow. Bowel sounds are absent. No flank pain reported and complaints are isolated to incision sites. ABGs improved after stabilization on the unit.
[2022-10-09] MEDS: HYDROmorphone 1 mg/mL INJ 1 mL IVP ×9 (02:30→22:20)
[2022-10-09] MEDS: ondansetron 2 mg/ML SDV 2 mL 4 MG IVP ×4 (02:38→20:16)
[2022-10-09] MEDS: sodium chloride 0.9% 1,000 ML 125 ML IV ×2 (02:57→13:02)
[2022-10-09] MEDS: ceFOXitin 2,000 MG in sodium chloride 0.9% (plus) 50 ML 100 MG IV (03:37)
[2022-10-09] MEDS: sodium polystyrene sulfonate 15 gm/60 mL Btl NG-TUBE (03:41)
[2022-10-09 04:10] LABS: ABG PCO2 55.4 mmHg (35-45); ABG PH Result 7.25 (7.35-7.45); Base Excess ABG -4.2 mmol/L (-2.0-2.0); Blood Gas Allen Test Pos; Blood Gas Operator Identificat JB; Blood Gas Sample Site Radial, right; Blood Gas Sample Type Arterial; Oxygen Device OXY MASK; PO2 ABG 65.1 mmHg (80.0-100.0)
[2022-10-09 04:28] LABS: INR 1.16 (0.8-1.2)
[2022-10-09 04:52] LABS: Alanine Aminotransferase 22 U/L (0-41); Albumin Level 3.3 g/dL (3.5-5.2); Alkaline Phosphatase 42 U/L (40-130); Anion Gap 13.4 (5-19); Aspartate Amino Transferase 32 U/L (0-40); Blood Urea Nitrogen 16 mg/dL (8-23); Calcium 7.1 mg/dL (8.5-10.5); Carbon Dioxide 23 mmol/L (22-29); Chloride 110 mmol/L (98-107); Globulin 2.5 g/dL (1.3-4.6); Glomerular Filtration Rate 55.1 mL/min (90-130); Glucose 142 mg/dL (65-115); Osmolality Calculated 294 mOsm/kg (285-295); Potassium 6.4 mmol/L (3.5-5.1); Sodium 140 mmol/L (136-145); Total Bilirubin 0.5 mg/dL (0.15-1.2); Total Protein 5.8 g/dL (6.6-8.7); Uric Acid 5.3 mg/dL (3.4-7.0)
[2022-10-09 05:09] LABS: Iron 17 ug/dL (59-158); Percent Saturation 11.1 % (20-50); Total Iron Binding Capacity 152 mcg/dl; Unsaturated Iron Binding 135 ug/dL (112-347)
--- NOTE | 2022-10-09 06:12 | PC.NURSE ---
Aspirated patient's NG tube to the amount of 500ml blood tinged residual. Patient had received less than 100mls of medications/fluids since arriving on unit. Hospitalist notified and order to put NG tube to low intermittent suction received.
[2022-10-09] MEDS: dilTIAZem 100 MG in sodium chloride 0.9% (add-van) 100 ML 10 MG IV ×2 (07:00→16:47)
[2022-10-09 08:59] LABS: Basophils % 0.1 %; Hemoglobin 14.5 g/dL (11.7-16.6); Lymphocytes # 0.8 10^3/uL (0.8-4.8); Lymphocytes % 5.8 %; Mean Corpuscular HGB Conc 31.5 g/dL (30.0-36.0); Mean Corpuscular Hemoglobin 31.5 pg (28.0-34.0); Mean Platelet Volume 9.7 fL (7.4-10.4); Monocytes # 1.1 10^3/uL (0.2-0.9); Monocytes % 7.8 %; Neutrophils # 11.82 10^3/uL (1.8-7.7); Neutrophils % 85.8 %; Nucleated Red Blood Cells % 0 %; Platelet Count 204 10^3/cmm (130-400); Red Cell Distribution Width 16.1 % (12.1-15.1); White Blood Count 13.8 10^3/uL (4.0-10.0)
[2022-10-09 09:22] LABS: Anion Gap 11.4 (5-19); Blood Urea Nitrogen 15 mg/dL (8-23); Calcium 7.6 mg/dL (8.5-10.5); Carbon Dioxide 26 mmol/L (22-29); Chloride 110 mmol/L (98-107); Glomerular Filtration Rate 60.4 mL/min (90-130); Glucose 139 mg/dL (65-115); Magnesium 1.7 mg/dL (1.7-2.3); Osmolality Calculated 297 mOsm/kg (285-295); Potassium 5.4 mmol/L (3.5-5.1); Sodium 142 mmol/L (136-145)
[2022-10-09] MEDS: insulin regular-human 10 UNIT in SYRINGE 1 EACH IVP (10:07)
[2022-10-09] MEDS: calcium gluconate 0.9% NaCL 1 GM/50 ML PREMIX IV (10:07)
--- NOTE | 2022-10-09 10:12 | P.PN_ITS ---
Subjective Subjective: Patient seen and examined. Pain much improved however he is having diffuse abdominal cramping with any palpation of the abdomen. Denies any nausea or vomiting. Denies any bowel movement or flatus. He was moved to the ICU by the medical physician yesterday due to A. fib with RVR. He was also f ound to have hyperkalemia and was given dextrose, insulin and Kayexalate. Vitals/I&O/Wt Last Vital Signs Temp 100.4 F H 10/09/22 03:45 Pulse 94 10/09/22 08:23 Resp 22 H 10/09/22 08:23 BP 136/67 10/09/22 08:00 Pulse Ox 92 10/09/22 08:23 O2 Del Method 10/09/22 08:23 O2 Flow Rate 5 10/09/22 08:23 10/08/22 10/09/22 10/09/22 22:59 06:59 14:59 Intake Total 1799.167 / 4949.167 1131.262 / 6080.429 740.433 / 740.433 Output Total 50 / 695 1225 / 1920 Balance 1749.167 / 4254.167 -93.738 / 4160.429 740.433 / 740.433 Physical Exam Narrative: General: No acute distress, awake alert and oriented x3 Abdomen soft, nondistended, appropriately tender to palpation Dressings clean dry and intact Urinary Catheter Management: Orellana: Cath Placed During This Visit: yes Reason for Continuing Indwelling Catheter: Accurate Measurement of Urinary Output in Critically Ill Patients Urinary Catheter Date of Insertion: 10/08/22 Urinary Catheter Time of Insertion: 07:20 Data 10/09/22 08:21 10/09/22 08:21 A&P Assessment and plan (1) Colon cancer: (2) Status post left hemicolectomy: (3) Hyperkalemia: (4) Atrial fibrillation with RVR: Plan IV fluids N.p.o./NG tube to low remittent wall suction Continue Orellana for now Medical management per medicine DC Kayexalate as this can cause colonic necrosis and postop colon surgery patients Await return of bowel function Attestations Medical Necessity Statement*: Patient requires multiple more nights in the [facility] after left hemicolectomy for colon cancer Coding Level of Care Code Acute Estimating Manager for Chg Fwd Diagnoses Colon cancer C18.9 Status post left hemicolectomy Z90.49 Hyperkalemia E87.5 Atrial fibrillation with RVR I48.91
--- NOTE | 2022-10-09 10:33 | PC.CHAP ---
Pastoral Care Encounter/Spiritual Assessment Type of Contact [] Declined professor of literature visit [] Patient/Family/Request visit [] Outpatient visit [] Follow-up visit [] Physician referral [] Code/Alert [x] Routine visit [] Staff referral [] Actively dying [] Patient sleeping [] Family support [] [] Out of room [] Palliative care [] [] Receiving care in room [] Pre-surgical visit [] Trauma [] Long length of stay [x] ICU visit [x] Other: one of our chaplains.. long surgery yesterday.. in a lot of pain.. Relational/Emotional Strength [] Patient feels connected with others/family/visitors/staff [] Distress [] Loneliness/isolation [] Abandonment Spirituality of Patient [] Person of Maryanne [] Attends Shinto of their Maryanne [] Believes in Prayer [] Reads Bible or Taoism materials [] There are Spiritual issues to be addressed [employer] Specialist 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 [x] Prayer [] Active listening [] Non-anxious presence [] Spiritual/emotional support [] Crisis/trauma care [] Spiritual counseling [] Bereavement support [] Provided bereavement packet [] Provided Bible/devotional materials [] Provided toy/stuffed animal, coloring book to patient or family member [] Provided Communion [] Anointing/Paradise [] Salvation [x] Completed spiritual assessment [] Other: Impact on Illness or Injury [] Angry [] Fearful [] Anxious [] Often cries [] Exhaustion [] Unable to work [] Unable to attend religious [] Unable to walk/stand [] Unable to read [] Unable to drive [] Unable to eat/drink [] Unable to sleep [] Unable to be with family [] Patient intubated [] Other: Summary Time spent with patient
[2022-10-09] MEDS: piperacillin-tazobactam 3.375 GM in sodium chloride 0.9% (plus) 50 ML IV ×2 (11:07→16:54)
[2022-10-09] MEDS: ipratropium-albuterol 3 mL Neb INHALATION ×2 (14:18→19:57)
[2022-10-09] MEDS: fentaNYL 25 mcg Patch 1 PATCH TRANSDERMA (14:36)
[2022-10-09] MEDS: metoprolol tartrate 1 mg/1 mL SDV 5 mL 2.5 MG IVP (14:37)
--- NOTE | 2022-10-09 16:27 | PM.PN ---
Subjective Subjective: Potassium has improved today to 5.4. Did receive a dose of insulin dextrose after this number. Will avoid further doses of Kayexalate as patient is to be strictly n.p.o. and we do not want to induce any diarrhea given his recent postop state. Reports a past history also of sleep apnea, uses CPAP at home every night. Denies any history of COPD, though review of cardiac notes states that patient has been diagnosed with interstitial lung disease in the past. Currently denies any dyspnea. Heart rate is controlled on 10 of Cardizem. abdominal pain is his most distressing symptom, reports cramping and heartburn.. Medications: Reviewed: Yes Vitals/I&O/Wt Last Vital Signs Temp 99.1 F 10/09/22 13:00 Pulse 105 H 10/09/22 15:00 Resp 20 H 10/09/22 15:00 BP 151/70 10/09/22 15:00 Pulse Ox 91 10/09/22 15:00 O2 Del Method 10/09/22 15:00 O2 Flow Rate 4 10/09/22 15:00 10/09/22 10/09/22 10/09/22 06:59 14:59 22:59 Intake Total 1131.262 / 6080.429 193.100 / 1931.100 50 / 1982.100 Output Total 1225 / 1920 1000 / 1000 Balance -93.738 / 4160.429 193.100 / 193.100 -950 / 982.100 Physical Exam Narrative: General: No acute distress, AO x3 HEENT: PERRLA, pupils bilaterally equal and reactive, pallors not present Chest: Normal vesicular breath sounds, no added sounds, equal good air entry bilaterally CVS: S1-S2 regular, no murmurs, no tachycardia, no gallops, no rubs Abdomen: Distended, complains of abdominal pain. Neuro: No focal deficits, no facial deformity, AO x3, power 5/5 in all limbs Urinary Catheter Management: Orellana: Cath Placed During This Visit: yes Reason for Continuing Indwelling Catheter: Accurate Measurement of Urinary Output in Critically Ill Patients Urinary Catheter Date of Insertion: 10/08/22 Urinary Catheter Time of Insertion: 07:20 Data 10/09/22 08:21 10/09/22 08:21 A&P Assessment and plan (1) Status post left hemicolectomy: POD #1, done for adenocarcinoma of splenic flexure identified on routine colon cancer screening recently. (2) Atrial fibrillation with rapid ventricular response: In a patient with known chronic atrial fibrillation, apparently on bisoprolol in combination with HCTZ as only rate controlling medication, has been on Xarelto for anticoagulation, but held 5 days ago for planned surgery. Currently with atrial fibrillation with rapid ventricular response post-operatively. Likely 2/2 hyperkalemia, missed bisoprolol and acute stress. Currently on cardizem 10mg/hr infusion Unable to start p.o. medications to overlap with the drip. We will start with metoprolol 2.5 mg IV every 4 hours scheduled and attempt to wean down on the drip. 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 Has myocardial perfusion study on 10/05/22. Ischemic work-up was negative. Currently troponin series additionally negative. No acute ST-T wave changes to suggest acute coronary syndrome. 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 No current complaints of chest pain though need to try to maintain rate control. Had myocardial perfusion imaging on October 05, 2022 that did not show evidence of ischemia and revealed a normal ejection fraction. (4) Polycythemia: Secondary, has been managed with blood donation periodically. Preoperative hemoglobin 16.7. Has had hemoglobin as high as 20 within the past 2 years. (5) Obstructive sleep apnea: Not currently using cpap at home due to malfunction of machine. ABG with evidence of hypercapnic hypoxic respiratory failure. Known restrictive lung disease and asbestosis. At baseline uses CPAP at home, unable to utilize BiPAP for now. Currently saturating 93% on supplemental O2, does drop down to 70% on room air. Does not typically use oxygen at home. Will add duo nebs as a scheduled nebulization along with budesonide. Typically uses Symbicort at home. (6) Hypertension: Chronic diagnosis, usually on bisoprolol-HCTZ and lisinopril. Both held prior to surgery. Currently with low normal blood pressures in setting of recent medications and post-operative state. (7) Dyslipidemia: Chronically on statin therapy. (8) Asthma: Does not appear acutely exacerbated at present. Chronically on budesonide-fomoterol HFA. 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 (11) COVID-19: Had COVID in early 08/2022 and was hospitalized in [place] briefly needing oxygen. (12) Goiter: Last TSH recorded in our system is from 09/2020, low normal. (13) Gout: Chronically on allopurinol Attestations Medical Necessity Statement*: Per admitting, currently running Cardizem infusion Coding Level of Care Code Acute Wallpaper Hanger for [facility] Fwd Diagnoses Status post left hemicolectomy Z90.49 Atrial fibrillation with rapid ventricular response I48.91 Myocardial bridge Q24.5 Polycythemia D75.1 Obstructive sleep apnea G47.33 Hypertension I10 Dyslipidemia E78.5 Asthma J45.30 Asthma severity: mild Asthma persistence: persistent Asthma complication type: uncomplicated Restrictive lung disease due to kyphoscoliosis J98.4; M41.9 Degenerative joint disease (DJD) of lumbar spine M47.816 COVID-19 U07.1 Goiter E04.9 Gout M10.9
[2022-10-09] MEDS: metoprolol tartrate 1 mg/1 mL SDV 5 mL 5 MG IVP ×2 (16:53→21:47)
[2022-10-09] MEDS: budesonide 0.5 mg/2 mL Neb INHALATION (19:57)
[2022-10-10] VITALS (77 sets, daily range): BP systolic 102–158; BP diastolic 55–90; PULSE 74–112; RESP 0–27; TEMP 36.6–38.2; O2SAT 89–97
[2022-10-10] MEDS: metoprolol tartrate 1 mg/1 mL SDV 5 mL 5 MG IVP ×7 (01:04→20:44)
[2022-10-10] MEDS: piperacillin-tazobactam 3.375 GM in sodium chloride 0.9% (plus) 50 ML IV ×3 (01:05→18:03)
[2022-10-10] MEDS: dilTIAZem 100 MG in sodium chloride 0.9% (add-van) 100 ML 12.5 MG IV (01:05)
[2022-10-10] MEDS: ipratropium-albuterol 3 mL Neb INHALATION ×4 (01:25→19:38)
[2022-10-10 04:44] LABS: Basophils % 0.2 %; Hematocrit 47.3 % (42.0-52.0); Hemoglobin 14.6 g/dL (11.7-16.6); Lymphocytes # 0.8 10^3/uL (0.8-4.8); Mean Corpuscular HGB Conc 30.9 g/dL (30.0-36.0); Mean Corpuscular Hemoglobin 31.9 pg (28.0-34.0); Mean Corpuscular Volume 103.3 fl (80-94); Mean Platelet Volume 9.8 fL (7.4-10.4); Monocytes # 1.2 10^3/uL (0.2-0.9); Monocytes % 8.6 %; Neutrophils # 11.51 10^3/uL (1.8-7.7); Neutrophils % 84.6 %; Nucleated Red Blood Cells % 0 %; Platelet Count 205 10^3/cmm (130-400); Red Blood Count 4.58 10^6/uL (4.1-5.3); Red Cell Distribution Width 16.4 % (12.1-15.1); White Blood Count 13.6 10^3/uL (4.0-10.0)
[2022-10-10 05:12] LABS: Anion Gap 10.1 (5-19); Blood Urea Nitrogen 17 mg/dL (8-23); Carbon Dioxide 33 mmol/L (22-29); Chloride 106 mmol/L (98-107); Glomerular Filtration Rate 84.2 mL/min (90-130); Glucose 149 mg/dL (65-115); Magnesium 2.2 mg/dL (1.7-2.3); Osmolality Calculated 304 mOsm/kg (285-295); Potassium 4.1 mmol/L (3.5-5.1); Sodium 145 mmol/L (136-145)
[2022-10-10] MEDS: HYDROmorphone 1 mg/mL INJ 1 mL IVP ×5 (07:12→22:38)
--- NOTE | 2022-10-10 07:29 | PC.NURSE ---
At 1900 this RN was going assessment and found NG to be clogged. clog was removed and reconnected to suction. shortly after 1000ml was emptied from NG 2240 MD notified of increase O2 needs. 0300 MD notified of temp increase and interventions done by RN. (decrease room temp and removed extra blankets. Tylenol order received but temp had decreased so no medication given.
[2022-10-10] MEDS: budesonide 0.5 mg/2 mL Neb INHALATION ×2 (08:08→19:38)
--- NOTE | 2022-10-10 08:51 | XR_ITS ---
WS: [id number] XR chest 1V portable [id number] REASON FOR EXAM: evaluate for pneumonia FINDINGS: Nasogastric tube remains in place overlying the fundus of the stomach. Moderate tortuosity and ectasia of the thoracic aorta. Cardiomegaly. Compared to the examination of 10/08/2022, there is ill-defined opacity in the left lower lung field as sociated with linear and wedge-shaped areas somewhat more dense. A similar area is seen in the right lower lung field. Chest is otherwise unchanged. XR/XR chest 1V portable [id number] IMPRESSION: Interval lung changes most prominent in the left lower lung. Findings are most suggestive of atelectasis. Difficult to exclude pneumonitis.
--- NOTE | 2022-10-10 10:24 | PC.CHAP ---
Pastoral Care Encounter/Spiritual Assessment Type of Contact [] Declined plating equipment tender visit [] Patient/Family/Request visit [] Outpatient visit [] Follow-up visit [] Physician referral [] Code/Alert [x] Routine visit [] Staff referral [] Actively dying [] Patient sleeping [] Family support [] [] Out of room [] Palliative care [] [] Receiving care in room [] Pre-surgical visit [] Trauma [] Long length of stay [x] ICU visit [] Other: PT doing much better today.. finding comfort in his space Relational/Emotional Strength [] Patient feels connected with others/family/visitors/staff [] Distress [] Loneliness/isolation [] Abandonment Spirituality of Patient [] Person of Maryanne [] Attends Jewish of their Maryanne [] Believes in Prayer [] Reads Bible or Mosque materials [] There are Spiritual issues to be addressed Business Division Chair 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 [x] Prayer [] Active listening [] Non-anxious presence [] Spiritual/emotional support [] Crisis/trauma care [] Spiritual counseling [] Bereavement support [] Provided bereavement packet [] Provided Bible/devotional materials [] Provided toy/stuffed animal, coloring book to patient or family member [] Provided Communion [] Anointing/[place] [] Salvation [x] Completed spiritual assessment [] Other: Impact on Illness or Injury [] Angry [] Fearful [] Anxious [] Often cries [] Exhaustion [] Unable to work [] Unable to attend episcopalian [] Unable to walk/stand [] Unable to read [] Unable to drive [] Unable to eat/drink [] Unable to sleep [] Unable to be with family [] Patient intubated [] Other: Summary Time spent with patient
[2022-10-10] MEDS: dilTIAZem 100 MG in sodium chloride 0.9% (add-van) 100 ML 10 MG IV (10:32)
[2022-10-10] MEDS: heparin 5,000 unit/mL INJ 1 mL 5000 UNIT SUBCUT (13:49)
--- NOTE | 2022-10-10 15:12 | P.PN_ITS ---
Subjective Subjective: Heart rate is better controlled today but minimal movement does drive it up to 100-1 10. Pain is much better controlled after placing the fentanyl patch. Dilaudid frequency reduced to every 3-4 hours. Has not had a bowel movement yet. Not passed flatus yet. Currently on 5 L/min supplemental O 2. T-max 100.7 overnight. Medications: Reviewed: Yes Vitals/I&O/Wt Last Vital Signs Temp 97.9 F 10/10/22 13:00 Pulse 92 10/10/22 14:30 Resp 20 H 10/10/22 14:30 BP 114/66 10/10/22 14:30 Pulse Ox 96 10/10/22 14:30 O2 Del Method 10/10/22 14:30 O2 Flow Rate 5 10/10/22 14:30 10/10/22 10/10/22 10/10/22 06:59 14:59 22:59 Intake Total 406.875 / 3216.741 610 / 610 Output Total 2140 / 5720 1835 / 1835 Balance -1733.125 / -2503.259 -1225 / -1225 Physical Exam Narrative: General: No acute distress, AO x3 HEENT: PERRLA, pupils bilaterally equal and reactive, pallors not present Chest: Normal vesicular breath sounds, no added sounds, equal good air entry bilaterally CVS: S1-S2 regular, no murmurs, no tachycardia, no gallops, no rubs Abdomen: Soft, nontender, no organomegaly, bowel sounds present Neuro: No focal deficits, no facial deformity, AO x3, power 5/5 in all limbs Urinary Catheter Management: Orellana: Cath Placed During This Visit: yes Reason for Continuing Indwelling Catheter: Accurate Measurement of Urinary Output in Critically Ill Patients Urinary Catheter Date of Insertion: 10/08/22 Urinary Catheter Time of Insertion: 07:20 Data 10/10/22 04:28 10/10/22 04:28 A&P Assessment and plan (1) Status post left hemicolectomy: POD #1, done for adenocarcinoma of splenic flexure identified on routine colon cancer screening recently. (2) Atrial fibrillation with rapid ventricular response: In a patient with known chronic atrial fibrillation, apparently on bisoprolol in combination with HCTZ as only rate controlling medication, has been on Xarelto for anticoagulation, but held 5 days ago for planned surgery. Currently with atrial fibrillation with rapid ventricular response post-operatively. Likely 2/2 hyperkalemia, missed bisoprolol and acute stress. Currently on cardizem 10mg/hr infusion Increase metoprolol today to 5 mg every 3 hours scheduled and attempt to wean down on the drip. Holding off on anticoagulation currently given his postoperative state. 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 Has myocardial perfusion study on 10/05/22. Ischemic work-up was negative. Currently troponin series additionally negative. No acute ST-T wave changes to suggest acute coronary syndrome. 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 No current complaints of chest pain though need to try to maintain rate control. Had myocardial perfusion imaging on October 05, 2022 that did not show evidence of ischemia and revealed a normal ejection fraction. (4) Polycythemia: Secondary, has been managed with blood donation periodically. Preoperative hemoglobin 16.7. Has had hemoglobin as high as 20 within the past 2 years. (5) Obstructive sleep apnea: Not currently using cpap at home due to malfunction of machine. ABG with evidence of hypercapnic hypoxic respiratory failure. Known restrictive lung disease and asbestosis. At baseline uses CPAP at home, unable to utilize BiPAP given abdominal surgery. Currently saturating 93% on supplemental O2, does drop down to 70% on room air. Does not typically use oxygen at home. Continue to use DuoNeb and budesonide scheduled inhalation. No current ind ication for steroid use. Suspect that patient may have underlying baseline hypoxia and will likely r equire supplemental O2 at discharge. (6) Hypertension: Chronic diagnosis, usually on bisoprolol-HCTZ and lisinopril. Both held prior to surgery. Currently with low normal blood pressures in setting of recent medications and post-operative state. (7) Dyslipidemia: Chronically on statin therapy. (8) Asthma: Does not appear acutely exacerbated at present. Chronically on budesonide- fomoterol HFA. 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 (11) COVID-19: Had COVID in early 08/2022 and was hospitalized in [place] briefly needing ox ygen. (12) Goiter: Last TSH recorded in our system is from 09/2020, low normal. (13) Gout: Chronically on allopurinol (14) Fever: Suspect postop fever, as a result of inflammation. Orellana plans to be removed today. Check chest x-ray to evaluate for any interim development of pneumonia versus atelectasis which may contribute to fever Check respiratory viral panel Blood cultures in a.m. if persistent be febrile. (15) Hyperkalemia: Now resolved Attestations Medical Necessity Statement*: Per admitting note Coding Level of Care Code Acute Land Development Manager for [facility] Fwd Diagnoses Status post left hemicolectomy Z90.49 Atrial fibrillation with rapid ventricular response I48.91 Myocardial bridge Q24.5 Polycythemia D75.1 Obstructive sleep apnea G47.33 Hypertension I10 Dyslipidemia E78.5 Asthma J45.30 Asthma severity: mild Asthma persistence: persistent Asthma complication type: uncomplicated Restrictive lung disease due to kyphoscoliosis J98.4; M41.9 Degenerative joint disease (DJD) of lumbar spine M47.816 COVID-19 U07.1 Goiter E04.9 Gout M10.9 Fever R50.9 Hyperkalemia E87.5
[2022-10-10] MEDS: sodium chloride 0.9% 1,000 ML 75 ML IV (15:44)
[2022-10-10 15:56] LABS: Adenovirus Not Detected (NOT DETECT); Chlamydia Pneumoniae Not Detected (NOT DETECT); Coronavirus 229E,HKU1,NL63,OC4 Detected (NOT DETECT); Human Metapneumovirus Not Detected (NOT DETECT); Human Rhinovirus/Enterovirus Not Detected (NOT DETECT); Influenza A Not Detected (NOT DETECT); Influenza A H1 Not Detected (NOT DETECT); Influenza A H1-2009 Not Detected (NOT DETECT); Influenza A H3 Not Detected (NOT DETECT); Influenza B Not Detected (NOT DETECT); Mycoplasma Pneumoniae Not Detected (NOT DETECT); Parainfluenza Virus Type 1 Not Detected (NOT DETECT); Parainfluenza Virus Type 2 Not Detected (NOT DETECT); Parainfluenza Virus Type 3 Not Detected (NOT DETECT); Parainfluenza Virus Type 4 Not Detected (NOT DETECT); Respiratory Syncytial Virus A Not Detected (NOT DETECT); Respiratory Syncytial Virus B Not Detected (NOT DETECT); SARS-COV-2 Not Detected (NOT DETECT)
--- NOTE | 2022-10-10 17:04 | P.PN_ITS ---
Subjective Subjective: Abdominal pain much improved. Denies any nausea or vomiting. Still no BM or flatus. Pulling 750 cc on incentive spirometer this morning Vitals/I&O/Wt Last Vital Signs Temp 97.9 F 10/10/22 13:00 Pulse 74 10/10/22 16:30 Resp 22 H 10/10/22 16:30 BP 121/71 10/10/22 16:30 Pulse Ox 93 10/10/22 16:30 O2 Del Method 10/10/22 16:30 O2 Flow Rate 5 10/10/22 16:30 10/10/22 10/10/22 10/10/22 06:59 14:59 22:59 Intake Total 406.875 / 3216.741 610 / 610 Output Total 2140 / 5720 1835 / 1835 Balance -1733.125 / -2503.259 -1225 / -1225 Physical Exam Narrative: General: No acute distress, awake alert and oriented x3 Abdomen: Soft, nondistended, appropriately tender to palpation, no guarding rebound or masses Incisions intact without erythema or exudate MISTI serosanguineous Urinary Catheter Management: Orellana: Cath Placed During This Visit: yes Reason for Continuing Indwelling Catheter: Accurate Measurement of Urinary Output in Critically Ill Patients Urinary Catheter Date of Insertion: 10/08/22 Urinary Catheter Time of Insertion: 07:20 Data 10/10/22 04:28 10/10/22 04:28 A&P Assessment and plan (1) Colon cancer: (2) Status post left hemicolectomy: (3) Hyperkalemia: (4) Atrial fibrillation with RVR: Plan IV fluids N.p.o./NG tube to low remittent wall suction DC Orellana Medical management per medicine-appreciate input Await return of bowel function Attestations Medical Necessity Statement*: Patient requires multiple more nights in the hospital for return of bowel function following left hemicolectomy for colon cancer Coding Level of Care Code Acute Promotion Officer for [facility] Fwd Diagnoses Colon cancer C18.9 Status post left hemicolectomy Z90.49 Hyperkalemia E87.5 Atrial fibrillation with RVR I48.91
[2022-10-11] VITALS (80 sets, daily range): BP systolic 112–193; BP diastolic 71–114; PULSE 80–108; RESP 10–22; TEMP 36.5–37.3; O2SAT 83–99
[2022-10-11] MEDS: dilTIAZem 100 MG in sodium chloride 0.9% (add-van) 100 ML 7.5 MG IV (00:14)
[2022-10-11] MEDS: metoprolol tartrate 1 mg/1 mL SDV 5 mL 5 MG IVP ×7 (00:23→23:20)
[2022-10-11] MEDS: heparin 5,000 unit/mL INJ 1 mL 5000 UNIT SUBCUT ×2 (00:23→12:16)
[2022-10-11] MEDS: HYDROmorphone 1 mg/mL INJ 1 mL IVP ×6 (01:53→23:20)
[2022-10-11] MEDS: piperacillin-tazobactam 3.375 GM in sodium chloride 0.9% (plus) 50 ML IV ×3 (01:54→17:54)
[2022-10-11] MEDS: ipratropium-albuterol 3 mL Neb INHALATION ×4 (01:59→20:38)
[2022-10-11 02:12] LABS: Basophils % 0.2 %; Eosinophils % 0.1 %; Hematocrit 47.8 % (42.0-52.0); Hemoglobin 14.6 g/dL (11.7-16.6); Mean Corpuscular HGB Conc 30.5 g/dL (30.0-36.0); Mean Corpuscular Hemoglobin 31.4 pg (28.0-34.0); Mean Corpuscular Volume 102.8 fl (80-94); Mean Platelet Volume 9.7 fL (7.4-10.4); Monocytes % 7.7 %; Neutrophils # 10.51 10^3/uL (1.8-7.7); Neutrophils % 83.5 %; Nucleated Red Blood Cells % 0 %; Platelet Count 218 10^3/cmm (130-400); Red Blood Count 4.65 10^6/uL (4.1-5.3); White Blood Count 12.6 10^3/uL (4.0-10.0)
[2022-10-11 02:29] LABS: Anion Gap 11.1 (5-19); Blood Urea Nitrogen 17 mg/dL (8-23); Calcium 8.8 mg/dL (8.5-10.5); Chloride 100 mmol/L (98-107); Glomerular Filtration Rate 96.4 mL/min (90-130); Potassium 4.1 mmol/L (3.5-5.1)
[2022-10-11 02:40] LABS: Glucose 131 mg/dL (65-115); Osmolality Calculated 315 mOsm/kg (285-295); Sodium 151 mmol/L (136-145)
[2022-10-11 03:46] LABS: Carbon Dioxide 44 mmol/L (22-29)
[2022-10-11 04:27] LABS: Magnesium 2.5 mg/dL (1.7-2.3)
[2022-10-11] MEDS: ondansetron 2 mg/ML SDV 2 mL 4 MG IVP ×3 (04:43→16:19)
[2022-10-11] MEDS: budesonide 0.5 mg/2 mL Neb INHALATION ×2 (08:16→20:38)
[2022-10-11] MEDS: pantoprazole 40 mg SDV IVP ×2 (08:52→19:55)
[2022-10-11] MEDS: digoxin 250 mcg/ml INJ 2 mL IVP (08:52)
[2022-10-11] MEDS: dilTIAZem 100 MG in sodium chloride 0.9% (add-van) 100 ML 10 MG IV (13:38)
--- NOTE | 2022-10-11 14:51 | PM.PN ---
Subjective Subjective: Abdominal pain much improved. Denies any nausea or vomiting. Still no BM or flatus. Vitals/I&O/Wt Last Vital Signs Temp 97.7 F 10/11/22 00:30 Pulse 100 10/11/22 14:30 Resp 20 H 10/11/22 14:30 BP 125/71 10/11/22 14:30 Pulse Ox 93 10/11/22 14:30 O2 Del Method 10/11/22 14:30 O2 Flow Rate 4 10/11/22 14:30 10/10/22 10/11/22 10/11/22 22:59 06:59 14:59 Intake Total 335 / 945 635.75 / 1580.75 129.25 / 129.25 Output Total 3190 / 5025 3495 / 8520 450 / 450 Balance -2855 / -4080 -2859.25 / -6939.25 -320.75 / -320.75 Physical Exam Narrative: General: No acute distress, awake alert and oriented x3 Abdomen: Soft, nondistended, appropriately tender to palpation, no guarding rebound or masses Incisions intact without erythema or exudate MISTI serosanguineous Urinary Catheter Management: Orellana: Cath Placed During This Visit: yes, but has since been removed by the nurse Reason for Continuing Indwelling Catheter: Decision to DC Catheter Urinary Catheter Date of Insertion: 10/08/22 Urinary Catheter Time of Insertion: 07:20 Date Urinary Catheter Removed: 10/10/22 Time Urinary Catheter Discontinued: 17:45 Data 10/11/22 02:06 10/11/22 02:06 Micro: Microbiology 10/11/22 02:10 Blood Culture - Preliminary Blood SPECIMEN COLLECTED 10/11/22 02:06 Blood Culture - Preliminary Blood SPECIMEN COLLECTED A&P Assessment and plan (1) Colon cancer: (2) Status post left hemicolectomy: (3) Hyperkalemia: (4) Atrial fibrillation with RVR: Plan IV fluids N.p.o./NG tube to low remittent wall suction Medical management per medicine-appreciate input Await return of bowel function Attestations Medical Necessity Statement*: ManagementPatient requires at least a couple more nights in the hospital for return of bowel function following left hemicolectomy for colon cancer. Coding Level of Care Code Acute Code for [facility] Fwd Diagnoses Colon cancer C18.9 Status post left hemicolectomy Z90.49 Hyperkalemia E87.5 Atrial fibrillation with RVR I48.91
--- NOTE | 2022-10-11 17:12 | P.PN_ITS ---
Subjective Subjective: Patient continues to be on Cardizem infusion at 10 mg/h however heart rate still continues to be 100 to 110 bpm. Received to 50 mcg of digoxin this morning without any improvement. Metoprolol was additionally up to 5 mg every 3 hours without any change. Patient denies any complaints today. States that his abdominal pain continues to improve. Has not passed any feces or flatus yet. Continues to be n.p.o. Trending towards hypertension today. Medications: Reviewed: Yes Vitals/I&O/Wt Last Vital Signs Temp 97.7 F 10/11/22 00:30 Pulse 94 10/11/22 15:00 Resp 18 10/11/22 16:17 BP 149/87 10/11/22 15:00 Pulse Ox 91 10/11/22 16:17 O2 Del Method 10/11/22 15:00 O2 Flow Rate 4 10/11/22 15:00 10/11/22 10/11/22 10/11/22 06:59 14:59 22:59 Intake Total 635.75 / 1580.75 129.25 / 129.25 Output Total 3495 / 8520 450 / 450 900 / 1350 Balance -2859.25 / -6939.25 -320.75 / -320.75 -900 / -1220.75 Physical Exam Narrative: General: No acute distress, AO x3 HEENT: PERRLA, pupils bilaterally equal and reactive, pallors not present Chest: Normal vesicular breath sounds, no added sounds, equal good air entry bilaterally CVS: S1-S2 regular, no murmurs, no tachycardia, no gallops, no rubs Abdomen: mildly distended Neuro: No focal deficits, no facial deformity, AO x3, power 5/5 in all limbs Urinary Catheter Management: Orellana: Cath Placed During This Visit: yes, but has since been removed by the nurse Reason for Continuing Indwelling Catheter: Decision to DC Catheter Urinary Catheter Date of Insertion: 10/08/22 Urinary Catheter Time of Insertion: 07:20 Date Urinary Catheter Removed: 10/10/22 Time Urinary Catheter Discontinued: 17:45 Data 10/11/22 02:06 10/11/22 02:06 Micro: Microbiology 10/11/22 02:10 Blood Culture - Preliminary Blood SPECIMEN COLLECTED 10/11/22 02:06 Blood Culture - Preliminary Blood SPECIMEN COLLECTED A&P Assessment and plan (1) Status post left hemicolectomy: POD #1, done for adenocarcinoma of splenic flexure identified on routine colon cancer screening recently. (2) Atrial fibrillation with rapid ventricular response: In a patient with known chronic atrial fibrillation, on bisoprolol in combination with HCTZ as only rate controlling medication at home Goals post operatively patient was hyperkalemic which may have been contributing. However patient continues to be in rapid A. fib with RVR and spi te of being on Cardizem drip since 08/08/2022 in addition to metoprolol 5 mg IV every 3 hours as scheduled medication. He is unable to be weaned down from 10 mg/h Cardizem. Digoxin to 50 mcg was given this morning without any significant effect. Given that patient has been persistently in A. fib at this point, will change treatment to amiodarone 150 mg over 15 minutes followed by titratable drip at 1 mg/h. Has been on Xarelto for anticoagulation, but held 5 days prior to surgery. Will restart anticoagulation today with Lovenox 1 mg/kg every 12 hours with plan to transition to Xarelto at discharge. 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 Has myocardial perfusion study on 10/05/22. Ischemic work-up was negative. Currently troponin series additionally negative. No acute ST-T wave changes to suggest acute coronary syndrome. 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 No current complaints of chest pain though need to try to maintain rate control. Had myocardial perfusion imaging on October 05, 2022 that did not show evidence of ischemia and revealed a normal ejection fraction. (4) Polycythemia: Secondary, has been managed with blood donation periodically. Preoperative hemoglobin same. (5) Obstructive sleep apnea: Not currently using cpap at home due to malfunction of machine. ABG with evidence of hypercapnic hypoxic respiratory failure. Known restrictive lung disease and asbestosis. At baseline uses CPAP at home, unable to utilize BiPAP given abdominal surgery. Currently saturating 93% on supplemental O2, does drop down to 70% on room air. Does not typically use oxygen at home. Continue to use DuoNeb and budesonide scheduled inhalation. No current indication for steroid use. Suspect that patient may have underlying baseline hypoxia and will likely require supplemental O2 at discharge. (6) Hypertension: Chronic diagnosis, usually on bisoprolol-HCTZ and lisinopril. Both held prior t o surgery. Currently with low normal blood pressures in setting of recent medications and post-operative state. (7) Dyslipidemia: Chronically on statin therapy. (8) Asthma: Does not appear acutely exacerbated at present. Chronically on budesonide- fomoterol HFA. 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 (11) COVID-19: Had COVID in early 08/2022 and was hospitalized in [place] briefly needing oxygen. (12) Goiter: Last TSH recorded in our system is from 09/2020, low normal. (13) Gout: Chronically on allopurinol (14) Fever: Likely 2/2 coronavirus infection (NOT COVID) (15) Hyperkalemia: Now resolved Attestations Medical Necessity Statement*: persistent A fib, starting amiodarone infusion, resume a/c, awaiting return of bowel function Critical Care Time: The high probability of a clinically significant, sudden or life threatening deterioration of the patient's [] system(s) required my full and direct attention, intervention and personal management. The critical care time is as shown. This time is in addition to time spent performing any reported procedures but includes the following: [x] Data and vital sign review and interpretation [x] Patient assessment, examination and intervention [x] Documentation [x] Medication orders and management Critical Care Time (min): 40 Coding Level of Care Code Acute Code for Chg Fwd Diagnoses Status post left hemicolectomy Z90.49 Atrial fibrillation with rapid ventricular response I48.91 Myocardial bridge Q24.5 Polycythemia D75.1 Obstructive sleep apnea G47.33 Hypertension I10 Dyslipidemia E78.5 Asthma J45.30 Asthma severity: mild Asthma persistence: persistent Asthma complication type: uncomplicated Restrictive lung disease due to kyphoscoliosis J98.4; M41.9 Degenerative joint disease (DJD) of lumbar spine M47.816 COVID-19 U07.1 Goiter E04.9 Gout M10.9 Fever R50.9 Hyperkalemia E87.5
[2022-10-11] MEDS: enoxaparin 150 mg/mL Syringe SUBCUT (17:34)
[2022-10-11] MEDS: dextrose 5%-sod chloride 0.45% 1,000 ML 75 ML IV (17:55)
[2022-10-11] MEDS: hyDRALAzine 20 mg/mL INJ 1 mL 10 MG IVP (19:55)
[2022-10-12] VITALS (102 sets, daily range): BP systolic 130–184; BP diastolic 70–125; PULSE 88–123; RESP 7–30; TEMP 36.6–36.9; O2SAT 82–97
[2022-10-12] MEDS: piperacillin-tazobactam 3.375 GM in sodium chloride 0.9% (plus) 50 ML IV ×3 (01:10→17:32)
[2022-10-12] MEDS: hyDRALAzine 20 mg/mL INJ 1 mL 10 MG IVP (02:19)
[2022-10-12] MEDS: HYDROmorphone 1 mg/mL INJ 1 mL IVP ×7 (02:58→22:44)
[2022-10-12] MEDS: ipratropium-albuterol 3 mL Neb INHALATION ×4 (03:15→19:25)
[2022-10-12 03:51] LABS: Basophils # 0.1 10^3/uL (0.0-0.1); Basophils % 0.5 %; Eosinophils # 0.2 10^3/uL (0.0-0.8); Eosinophils % 1.6 %; Hematocrit 49.4 % (42.0-52.0); Hemoglobin 14.9 g/dL (11.7-16.6); Lymphocytes # 1.1 10^3/uL (0.8-4.8); Lymphocytes % 10.1 %; Mean Corpuscular HGB Conc 30.2 g/dL (30.0-36.0); Mean Corpuscular Hemoglobin 31.6 pg (28.0-34.0); Mean Corpuscular Volume 104.7 fl (80-94); Mean Platelet Volume 9.3 fL (7.4-10.4); Neutrophils # 8.23 10^3/uL (1.8-7.7); Neutrophils % 77.7 %; Nucleated Red Blood Cells % 0.2 %; Platelet Count 244 10^3/cmm (130-400); Red Blood Count 4.72 10^6/uL (4.1-5.3); Red Cell Distribution Width 15.6 % (12.1-15.1); White Blood Count 10.6 10^3/uL (4.0-10.0)
[2022-10-12 04:42] LABS: Alanine Aminotransferase 16 U/L (0-41); Albumin Level 3.4 g/dL (3.5-5.2); Alkaline Phosphatase 54 U/L (40-130); Anion Gap 9.6 (5-19); Aspartate Amino Transferase 16 U/L (0-40); Blood Urea Nitrogen 15 mg/dL (8-23); Calcium 8.9 mg/dL (8.5-10.5); Chloride 102 mmol/L (98-107); Globulin 3.4 g/dL (1.3-4.6); Glomerular Filtration Rate 96.4 mL/min (90-130); Glucose 123 mg/dL (65-115); Osmolality Calculated 312 mOsm/kg (285-295); Potassium 3.6 mmol/L (3.5-5.1); Sodium 150 mmol/L (136-145); Total Bilirubin 0.5 mg/dL (0.15-1.2); Total Protein 6.8 g/dL (6.6-8.7)
[2022-10-12 05:02] LABS: Carbon Dioxide 42 mmol/L (22-29)
[2022-10-12] MEDS: enoxaparin 150 mg/mL Syringe SUBCUT ×2 (05:21→17:58)
[2022-10-12] MEDS: ondansetron 2 mg/ML SDV 2 mL 4 MG IVP (05:33)
[2022-10-12] MEDS: dextrose 5%-sod chloride 0.45% 1,000 ML 75 ML IV ×2 (08:12→23:32)
[2022-10-12] MEDS: pantoprazole 40 mg SDV IVP ×2 (08:12→20:34)
[2022-10-12] MEDS: budesonide 0.5 mg/2 mL Neb INHALATION ×2 (09:42→19:25)
[2022-10-12] MEDS: metoclopramide 5 mg/mL SDV 2 mL IVP (10:00)
--- NOTE | 2022-10-12 14:42 | P.PN_ITS ---
Subjective Subjective: Patient's heart rate today is better controlled. He is ranging between 80 to 100 bpm. He denies any abdominal pain. Has not passed feces or flatus yet. Sodium today at 150 Medications: Reviewed: Yes Vitals/I&O/Wt Last Vital Signs Temp 97.8 F 10/12/22 02:24 Pulse 104 H 10/12/22 13:37 Resp 16 10/12/22 13:37 BP 172/88 10/12/22 12:00 Pulse Ox 94 10/12/22 13:37 O2 Del Method 10/12/22 13:37 O2 Flow Rate 3 10/12/22 13:37 10/11/22 10/12/22 10/12/22 22:59 06:59 14:59 Intake Total 1210.33 / 1339.58 349.482 / 5320.969 3068 / 1050 Output Total 2205 / 2655 1050 / 3705 330 / 330 Balance -994.67 / -1315.42 -700.518 / -2015.938 720 / 720 Physical Exam Narrative: General: No acute distress, AO x3 HEENT: PERRLA, pupils bilaterally equal and reactive, pallors not present Chest: Normal vesicular breath sounds, no added sounds, equal good air entry bilaterally CVS: S1-S2 regular, no murmurs, no tachycardia, no gallops, no rubs Abdomen: Soft, nontender, no organomegaly, bowel sounds present Neuro: No focal deficits, no facial deformity, AO x3, power 5/5 in all limbs Urinary Catheter Management: Orellana: Cath Placed During This Visit: yes, but has since been removed by the nurse Reason for Continuing Indwelling Catheter: Decision to DC Catheter Urinary Catheter Date of Insertion: 10/08/22 Urinary Catheter Time of Insertion: 07:20 Date Urinary Catheter Removed: 10/10/22 Time Urinary Catheter Discontinued: 17:45 Data 10/12/22 03:22 10/12/22 03:22 Micro: Microbiology 10/11/22 02:10 Blood Culture - Preliminary Blood NEGATIVE TO DATE 10/11/22 02:06 Blood Culture - Preliminary Blood NEGATIVE TO DATE A&P Assessment and plan (1) Status post left hemicolectomy: POD #1, done for adenocarcinoma of splenic flexure identified on routine colon cancer screening recently. (2) Atrial fibrillation with rapid ventricular response: In a patient with known chronic atrial fibrillation, on bisoprolol in combination with HCTZ as only rate controlling medication at home Goals post operatively patient was hyperkalemic which may have been contr ibuting. However patient continues to be in rapid A. fib with RVR and spite of being on Cardizem drip since 08/08/2022 in addition to metoprolol 5 mg IV every 3 hours as scheduled medication. He is unable to be weaned down from 10 mg/h Cardizem. Digoxin 250 mcg was given 10/11 without any significant effect. started amiodarone 10/11 150 mg over 15 minutes followed by titratable drip at 1 mg/h. Metoprolol 5mg ivp q4h Has been on Xarelto for anticoagulation, but held 5 days prior to surgery. Res tarted anticoagulation with Lovenox 1 mg/kg every 12 hours with plan to transition to Xarelto at discharge. 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 Has myocardial perfusion study on 10/05/22. Ischemic work-up was negative. Currently troponin series additionally negative. No acute ST-T wave changes to suggest acute coronary syndrome. 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 No current complaints of chest pain though need to try to maintain rate control. Had myocardial perfusion imaging on October 05, 2022 that did not show evidence of ischemia and revealed a normal ejection fraction. (4) Polycythemia: Secondary, has been managed with blood donation periodically. Preoperative hemoglobin same. (5) Obstructive sleep apnea: Not currently using cpap at home due to malfunction of machine. ABG with evidence of hypercapnic hypoxic respiratory failure. Known restrictive lung disease and asbestosis. At baseline uses CPAP at home, unable to utilize BiPAP given abdominal surgery. Currently saturating 93% on supplemental O2, does drop down to 70% on room air. Does not typically use oxygen at home. Continue to use DuoNeb and budesonide scheduled inhalation. No current indication for steroid use. Suspect that patient may have underlying baseline hypoxia and will likely require supplemental O2 at discharge. (6) Hypertension: Chronic diagnosis, usually on bisoprolol-HCTZ and lisinopril. Both held prior to surgery. Currently with low normal blood pressures in setting of recent medications and post-operative state. (7) Dyslipidemia: Chronically on statin therapy. (8) Asthma: Does not appear acutely exacerbated at present. Chronically on budesonide- fomoterol HFA. 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 (11) COVID-19: Had COVID in early 08/2022 and was hospitalized in [place] briefly needing oxygen. (12) Goiter: Last TSH recorded in our system is from 09/2020, low normal. (13) Gout: Chronically on allopurinol (14) Fever: Likely 2/2 coronavirus infection (NOT COVID) (15) Hyperkalemia: Now resolved (16) Hypernatremia: fluids changed to d51/2 NS, interim development of minimal Le edema B/L feet, which could be related to dependency, however concerned t Plan Plan for today: Heart rate currently between 80-100, will add standing metoprolol to amiodarone infusion. Will continue amiodarone until able to take po meds Attestations Medical Necessity Statement*: awaitng return of bowel function, transitiont to po meds, per meg thompson Coding Level of Care Code Acute Code for Chg Fwd Diagnoses Status post left hemicolectomy Z90.49 Atrial fibrillation with rapid ventricular response I48.91 Myocardial bridge Q24.5 Polycythemia D75.1 Obstructive sleep apnea G47.33 Hypertension I10 Dyslipidemia E78.5 Asthma J45.30 Asthma severity: mild Asthma persistence: persistent Asthma complication type: uncomplicated Restrictive lung disease due to kyphoscoliosis J98.4; M41.9 Degenerative joint disease (DJD) of lumbar spine M47.816 COVID-19 U07.1 Goiter E04.9 Gout M10.9 Fever R50.9 Hyperkalemia E87.5 Hypernatremia E87.0
[2022-10-12] MEDS: fentaNYL 25 mcg Patch 1 PATCH TRANSDERMA (15:05)
[2022-10-12] MEDS: metoprolol tartrate 1 mg/1 mL SDV 5 mL 5 MG IVP ×2 (15:06→20:34)
--- NOTE | 2022-10-12 15:44 | P.PN_ITS ---
Subjective Subjective: Abdominal pain controlled. Denies any nausea or vomiting. Still no BM or flatus. Vitals/I&O/Wt Last Vital Signs Temp 97.8 F 10/12/22 02:24 Pulse 113 H 10/12/22 14:00 Resp 16 10/12/22 13:37 BP 172/88 10/12/22 12:00 Pulse Ox 94 10/12/22 13:37 O2 Del Method 10/12/22 13:37 O2 Flow Rate 3 10/12/22 13:37 10/12/22 10/12/22 10/12/22 06:59 14:59 22:59 Intake Total 349.482 / 8881.331 7402 / 1050 Output Total 1050 / 3705 330 / 330 180 / 510 Balance -700.518 / -2015.938 720 / 720 -180 / 540 Physical Exam Narrative: General: No acute distress, awake alert and oriented x3 Abdomen: Soft, nondistended, appropriately tender to palpation, no guarding leslie ound or masses Incisions intact without erythema or exudate MISTI serosanguineous Urinary Catheter Management: Orellana: Cath Placed During This Visit: yes, but has since been removed by the nurse Reason for Continuing Indwelling Catheter: Decision to DC Catheter Urinary Catheter Date of Insertion: 10/08/22 Urinary Catheter Time of Insertion: 07:20 Date Urinary Catheter Removed: 10/10/22 Time Urinary Catheter Discontinued: 17:45 Data 10/12/22 03:22 10/12/22 03:22 Micro: Microbiology 10/11/22 02:10 Blood Culture - Preliminary Blood NEGATIVE TO DATE 10/11/22 02:06 Blood Culture - Preliminary Blood NEGATIVE TO DATE A&P Assessment and plan (1) Colon cancer: (2) Status post left hemicolectomy: (3) Hyperkalemia: (4) Atrial fibrillation with RVR: Plan Postoperative day #4 IV fluids N.p.o./NG tube to low remittent wall suction Medical management per medicine-appreciate input Await return of bowel function Attestations Medical Necessity Statement*: Patient requires multiple more nights in the hospital for intensive care and return of bowel function for diet advancement Coding Level of Care Code Acute Code for Chg Fwd Diagnoses Colon cancer C18.9 Status post left hemicolectomy Z90.49 Hyperkalemia E87.5 Atrial fibrillation with RVR I48.91
[2022-10-12 15:49] LABS: NT Pro B Type Natriuretic Pept 2681 pg/mL (0-125)
[2022-10-13] VITALS (59 sets, daily range): BP systolic 115–182; BP diastolic 70–109; PULSE 82–128; RESP 8–30; TEMP 36.7–37.9; O2SAT 75–98
[2022-10-13] MEDS: HYDROmorphone 1 mg/mL INJ 1 mL IVP ×8 (00:44→20:11)
[2022-10-13] MEDS: piperacillin-tazobactam 3.375 GM in sodium chloride 0.9% (plus) 50 ML IV ×3 (01:09→17:49)
[2022-10-13] MEDS: ipratropium-albuterol 3 mL Neb INHALATION ×4 (01:58→19:50)
[2022-10-13] MEDS: metoprolol tartrate 1 mg/1 mL SDV 5 mL 5 MG IVP ×2 (02:09→08:08)
[2022-10-13] MEDS: enoxaparin 150 mg/mL Syringe SUBCUT (05:23)
[2022-10-13] MEDS: pantoprazole 40 mg SDV IVP ×2 (08:08→20:09)
[2022-10-13 08:13] LABS: Alanine Aminotransferase 15 U/L (0-41); Albumin Level 3.1 g/dL (3.5-5.2); Alkaline Phosphatase 50 U/L (40-130); Anion Gap 10.4 (5-19); Aspartate Amino Transferase 15 U/L (0-40); Blood Urea Nitrogen 14 mg/dL (8-23); Calcium 9.3 mg/dL (8.5-10.5); Carbon Dioxide 38 mmol/L (22-29); Chloride 101 mmol/L (98-107); Globulin 3.4 g/dL (1.3-4.6); Glomerular Filtration Rate 96.4 mL/min (90-130); Glucose 137 mg/dL (65-115); Osmolality Calculated 305 mOsm/kg (285-295); Potassium 3.4 mmol/L (3.5-5.1); Sodium 146 mmol/L (136-145); Total Bilirubin 0.8 mg/dL (0.15-1.2); Total Protein 6.5 g/dL (6.6-8.7)
[2022-10-13] MEDS: budesonide 0.5 mg/2 mL Neb INHALATION ×2 (08:57→19:50)
--- NOTE | 2022-10-13 09:35 | PM.PN ---
Subjective Subjective: Abdominal pain controlled. Denies any nausea or vomiting. Passing flatus today Vitals/I&O/Wt Last Vital Signs Temp 98.5 F 10/12/22 17:30 Pulse 86 10/13/22 08:57 Resp 16 10/13/22 08:57 BP 182/109 10/13/22 00:00 Pulse Ox 98 10/13/22 08:57 O2 Del Method 10/13/22 08:57 O2 Flow Rate 3 10/13/22 08:57 10/12/22 10/13/22 10/13/22 22:59 06:59 14:59 Intake Total 290 / 1340 1000 / 2340 Output Total 635 / 965 750 / 1715 Balance -345 / 375 250 / 625 Physical Exam Narrative: General: No acute distress, awake alert and oriented x3 Abdomen: Soft, nondistended, appropriately tender to palpation, no guarding rebound or masses Incisions intact without erythema or exudate, some bleeding at the inferior aspect of his wound MISTI serosanguineous Urinary Catheter Management: Orellana: Cath Placed During This Visit: yes, but has since been removed by the nurse Reason for Continuing Indwelling Catheter: Decision to DC Catheter Urinary Catheter Date of Insertion: 10/08/22 Urinary Catheter Time of Insertion: 07:20 Date Urinary Catheter Removed: 10/10/22 Time Urinary Catheter Discontinued: 17:45 Data 10/12/22 03:22 10/13/22 07:41 A&P Assessment and plan (1) Colon cancer: (2) Status post left hemicolectomy: (3) Hyperkalemia: (4) Atrial fibrillation with RVR: Plan Postoperative day #5 IV fluids Clear liquid diet Medical management per medicine-appreciate input Await return of bowel function Attestations Medical Necessity Statement*: Patient requires at least 1 more night in the hospital for intensive care and diet advancement following left hemicolectomy Coding Level of Care Code Acute Code for Chg Fwd Diagnoses Colon cancer C18.9 Status post left hemicolectomy Z90.49 Hyperkalemia E87.5 Atrial fibrillation with RVR I48.91
--- NOTE | 2022-10-13 12:22 | PC.NURSE ---
New Orders Received Patient actively bleeding from lower abdomen incision site, informed Dr. Soares. Received telephone order to hold Lovenox 150 mg until tomorrow.
[2022-10-13] MEDS: amiodarone 200 mg Tablet 400 MG PO ×2 (12:25→17:50)
--- NOTE | 2022-10-13 12:29 | PM.PN ---
Subjective Subjective: Patient reports he is passing gas overnight now. He reports some abdominal pain at times. He denies any nausea or vomiting. He is hopeful to have a diet today. Denies fevers or chills Medications: Reviewed: Yes Vitals/I&O/Wt Last Vital Signs Temp 98.1 F 10/13/22 10:32 Pulse 94 10/13/22 10:32 Resp 26 H 10/13/22 10:41 BP 157/89 10/13/22 10:00 Pulse Ox 93 10/13/22 10:32 O2 Del Method 10/13/22 08:57 O2 Flow Rate 3 10/13/22 08:57 10/12/22 10/13/22 10/13/22 22:59 06:59 14:59 Intake Total 290 / 1340 1000 / 2340 Output Total 635 / 965 750 / 1715 Balance -345 / 375 250 / 625 Physical Exam Narrative: General: Patient is awake and alert. Head: Normocephalic. Atraumatic. EOM intact. Neck: No JVD. Cardiovascular: No gallops. No murmurs. Trace lower extremity edema. Lungs: Clear to auscultation, no use of accessory muscles, no crackles or wheezes. Skin: No jaundice. No rashes. Abdomen: Hypoactive normal bowel sounds, abdomen soft. Midline surgical scars clean dry and intact with pascual. Genito Urinary: Genital exam not performed since complaints not related. Rectal: Rectal exam not performed since no symptoms indicated blood loss. Extremities: No cyanosis or clubbing. Musculoskeletal: 5/5 strength, normal range of motion, no swollen or erythematous joints. Neurological: Moves all 4 extremities. No myoclonus. Urinary Catheter Management: Orellana: Cath Placed During This Visit: yes, but has since been removed by the nurse Reason for Continuing Indwelling Catheter: Decision to DC Catheter Urinary Catheter Date of Insertion: 10/08/22 Urinary Catheter Time of Insertion: 07:20 Date Urinary Catheter Removed: 10/10/22 Time Urinary Catheter Discontinued: 17:45 Data 10/12/22 03:22 10/13/22 07:41 A&P Assessment and plan (1) Status post left hemicolectomy: For adenocarcinoma of splenic flexure identified on routine colon cancer screening Management per primary (2) Atrial fibrillation with rapid ventricular response: Chronic atrial fibrillation Rate is improved Discontinue IV amiodarone Start oral loading dose of amiodarone Telemetry monitoring Discontinue IV metoprolol Start oral metoprolol Optimize electrolytes (3) Myocardial bridge: Recent myocardial stress testing was unremarkable normal EF Attempt achieve rate control (4) Polycythemia: Can continue outpatient phlebotomy as needed (5) Obstructive sleep apnea: Also known history of restrictive lung disease and asbestosis His home CPAP is not working Patient needs to get new device at home (6) Hypertension: Home bisoprolol-HCTZ and lisinopril on hold Hydralazine as needed (7) Dyslipidemia: Restart statin (8) Asthma: Continue Pulmicort Continue DuoNebs Supplemental oxygen support as needed Qualifiers: Asthma severity: mild Asthma persistence: persistent Asthma complication type: uncomplicated Qualified Code(s): J45.30 - Mild persistent asthma, uncomplicated (9) Restrictive lung disease due to kyphoscoliosis: Management as above (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 (11) COVID-19: Resolved (12) Goiter: Last TSH recorded in our system is from 09/2020, low normal Outpatient follow-up (13) Gout: Can restart allopurinol at discharge (14) Fever: Resolved (15) Hyperkalemia: \Resolved (16) Hypernatremia: Improving Now the patient has diet will likely compensate by drinking more Continue to monitor Plan DVT prophylaxis: Lovenox on hold, can restart Xarelto when cleared with surgery CODE STATUS: Full code Attestations Medical Necessity Statement*: Awaiting return for bowel function with expected trial of clear liquid diet today and ongoing titration of medications as needed for his acute and chronic conditions requiring ongoing hospitalization. Coding Level of Care Code Acute Code for Chg Fwd Diagnoses Status post left hemicolectomy Z90.49 Atrial fibrillation with rapid ventricular response I48.91 Myocardial bridge Q24.5 Polycythemia D75.1 Obstructive sleep apnea G47.33 Hypertension I10 Dyslipidemia E78.5 Asthma J45.30 Asthma severity: mild Asthma persistence: persistent Asthma complication type: uncomplicated Restrictive lung disease due to kyphoscoliosis J98.4; M41.9 Degenerative joint disease (DJD) of lumbar spine M47.816 COVID-19 U07.1 Goiter E04.9 Gout M10.9 Fever R50.9 Hyperkalemia E87.5 Hypernatremia E87.0
[2022-10-13] MEDS: metoprolol tartrate 25 mg Tablet PO ×2 (12:53→20:07)
--- NOTE | 2022-10-13 13:23 | PC.SOCIAL ---
IMM Update pg 2 of IMM updated and reviewed w/ patient. Copy provided and Copy in chart dated, and initialed.
[2022-10-13] MEDS: dextrose 5%-sod chloride 0.45% 1,000 ML 75 ML IV (16:10)
[2022-10-13] MEDS: atorvastatin 40 mg Tablet 20 MG PO (20:07)
[2022-10-13] MEDS: trazodone 150 mg Tablet 300 MG PO (20:08)
[2022-10-13] MEDS: acetaminophen 325 mg Tablet 650 MG PO (20:21)
[2022-10-13] MEDS: folic acid 1 mg Tablet PO (21:07)
[2022-10-14] VITALS (60 sets, daily range): BP systolic 99–149; BP diastolic 54–95; PULSE 62–136; RESP 14–33; TEMP 37.3–37.8; O2SAT 85–97
[2022-10-14] MEDS: metoprolol tartrate 25 mg Tablet PO (00:33)
[2022-10-14] MEDS: simethicone 80 mg Chew 40 MG PO ×2 (00:48→20:30)
[2022-10-14] MEDS: HYDROmorphone 1 mg/mL INJ 1 mL IVP ×7 (00:49→21:34)
[2022-10-14] MEDS: piperacillin-tazobactam 3.375 GM in sodium chloride 0.9% (plus) 50 ML IV ×3 (01:32→19:18)
[2022-10-14 03:08] LABS: Basophils # 0.1 10^3/uL (0.0-0.1); Basophils % 0.4 %; Eosinophils # 0.2 10^3/uL (0.0-0.8); Eosinophils % 1.8 %; Hematocrit 42.7 % (42.0-52.0); Hemoglobin 13.5 g/dL (11.7-16.6); Lymphocytes # 1.2 10^3/uL (0.8-4.8); Lymphocytes % 10.3 %; Mean Corpuscular HGB Conc 31.6 g/dL (30.0-36.0); Mean Corpuscular Hemoglobin 31.8 pg (28.0-34.0); Mean Corpuscular Volume 100.5 fl (80-94); Mean Platelet Volume 9.3 fL (7.4-10.4); Monocytes # 0.8 10^3/uL (0.2-0.9); Monocytes % 7.1 %; Neutrophils # 9.13 10^3/uL (1.8-7.7); Neutrophils % 78.6 %; Nucleated Red Blood Cells % 0.3 %; Platelet Count 210 10^3/cmm (130-400); Red Blood Count 4.25 10^6/uL (4.1-5.3); Red Cell Distribution Width 15.5 % (12.1-15.1); White Blood Count 11.6 10^3/uL (4.0-10.0)
[2022-10-14 03:35] LABS: Albumin Level 2.6 g/dL (3.5-5.2); Anion Gap 10.9 (5-19); Blood Urea Nitrogen 13 mg/dL (8-23); Calcium 8.4 mg/dL (8.5-10.5); Carbon Dioxide 32 mmol/L (22-29); Chloride 96 mmol/L (98-107); Glomerular Filtration Rate 84.2 mL/min (90-130); Glucose 132 mg/dL (65-115); Magnesium 1.9 mg/dL (1.7-2.3); Phosphorus 1.6 mg/dL (2.5-4.5); Sodium 136 mmol/L (136-145)
[2022-10-14 03:57] LABS: Potassium 2.9 mmol/L (3.5-5.1)
[2022-10-14] MEDS: potassium chloride premix 100 ML 25 MEQ IV (04:11)
[2022-10-14] MEDS: dextrose 5%-sod chloride 0.45% 1,000 ML 75 ML IV (06:16)
[2022-10-14] MEDS: amiodarone 200 mg Tablet 400 MG PO ×2 (08:51→19:18)
[2022-10-14] MEDS: ipratropium-albuterol 3 mL Neb INHALATION ×2 (08:51→13:39)
[2022-10-14] MEDS: pantoprazole 40 mg SDV IVP ×2 (08:51→20:20)
[2022-10-14] MEDS: budesonide 0.5 mg/2 mL Neb INHALATION (08:51)
[2022-10-14] MEDS: metoprolol tartrate 25 mg Tablet 50 MG PO ×2 (08:51→20:20)
--- NOTE | 2022-10-14 10:13 | PM.PN ---
Subjective Subjective: Patient had a black/bloody bowel movement overnight. Continues to pass flatus. Denies any nausea or vomiting. Tolerating clear liquids. Medications: Reviewed: Yes Vitals/I&O/Wt Last Vital Signs Temp 100.0 F H 10/14/22 09:00 Pulse 105 H 10/14/22 09:00 Resp 18 10/14/22 09:00 BP 123/69 10/14/22 09:00 Pulse Ox 95 10/14/22 09:00 O2 Del Method 10/14/22 08:45 O2 Flow Rate 2 10/14/22 08:45 10/13/22 10/14/22 10/14/22 22:59 06:59 14:59 Intake Total 770 / 2079.083 1150 / 3229.083 120 / 120 Output Total 220 / 670 155 / 825 Balance 550 / 1409.083 995 / 2404.083 120 / 120 Physical Exam Narrative: General: No acute distress, awake alert and oriented x3 Abdomen: Soft, nondistended, appropriately tender to palpation, no guarding rebound or masses Incisions intact without erythema or exudate, some bleeding at the inferior aspect of his wound MISTI serosanguineous Urinary Catheter Management: Orellana: Cath Placed During This Visit: yes, but has since been removed by the nurse Reason for Continuing Indwelling Catheter: Decision to DC Catheter Urinary Catheter Date of Insertion: 10/08/22 Urinary Catheter Time of Insertion: 07:20 Date Urinary Catheter Removed: 10/10/22 Time Urinary Catheter Discontinued: 17:45 Data 10/14/22 02:26 10/14/22 02:26 A&P Assessment and plan (1) Colon cancer: (2) Status post left hemicolectomy: (3) Hyperkalemia: (4) Atrial fibrillation with RVR: Plan Postoperative day #6 IV fluids GI soft diet Medical management per medicine-appreciate input Will likely discontinue MISTI drain tomorrow and discharge home Attestations Medical Necessity Statement*: Patient requires 1 more night in the hospital for intensive care and diet advancement following left hemicolectomy Coding Level of Care Code Acute Code for Chg Fwd Diagnoses Colon cancer C18.9 Status post left hemicolectomy Z90.49 Hyperkalemia E87.5 Atrial fibrillation with RVR I48.91
[2022-10-14] MEDS: enoxaparin 40 mg/0.4 mL Syringe SUBCUT (11:08)
[2022-10-14] MEDS: lidocaine 1% INJ 10 mL (per mL) 5 ML IV (12:18)
--- NOTE | 2022-10-14 12:50 | PM.PN ---
Subjective Subjective: Patient reports that he is passing gas. He had a dark bloody bowel movement overnight. Denies nausea or emesis. Reports intermittent abdominal pains. Noted to be diffusely weak. Medications: Reviewed: Yes Vitals/I&O/Wt Last Vital Signs Temp 100.0 F H 10/14/22 09:00 Pulse 105 H 10/14/22 09:00 Resp 23 H 10/14/22 11:08 BP 123/69 10/14/22 09:00 Pulse Ox 95 10/14/22 09:00 O2 Del Method 10/14/22 08:45 O2 Flow Rate 2 10/14/22 08:45 10/13/22 10/14/22 10/14/22 22:59 06:59 14:59 Intake Total 770 / 2079.083 1150 / 3229.083 591.25 / 591.25 Output Total 220 / 670 155 / 825 Balance 550 / 1409.083 995 / 2404.083 591.25 / 591.25 Physical Exam Narrative: General: Patient is awake. Appears fatigued. Head: Normocephalic. Atraumatic. EOM intact. Neck: No JVD. Cardiovascular: No gallops. No murmurs. Trace lower extremity edema. Lungs: Clear to auscultation, no use of accessory muscles, no crackles or wheezes. Skin: No jaundice. No rashes. Abdomen: Hypoactive normal bowel sounds, abdomen soft. Midline surgical scar. Stapled. Minor bleeding distally. Genito Urinary: Genital exam not performed since complaints not related. Rectal: Rectal exam not performed since no symptoms indicated blood loss. Extremities: No cyanosis or clubbing. Musculoskeletal: 5/5 strength, normal range of motion, no swollen or erythematous joints. Neurological: Moves all 4 extremities. No myoclonus. Urinary Catheter Management: Orellana: Cath Placed During This Visit: yes, but has since been removed by the nurse Reason for Continuing Indwelling Catheter: Decision to DC Catheter Urinary Catheter Date of Insertion: 10/08/22 Urinary Catheter Time of Insertion: 07:20 Date Urinary Catheter Removed: 10/10/22 Time Urinary Catheter Discontinued: 17:45 Data 10/14/22 02:26 10/14/22 02:26 A&P Assessment and plan (1) Status post left hemicolectomy: For adenocarcinoma of splenic flexure identified on routine colon cancer screening Bowel function is returning Management per primary (2) Atrial fibrillation with rapid ventricular response: Chronic atrial fibrillation Continue oral loading dose amiodarone Telemetry monitoring Continue metoprolol, dose adjusted overnight Optimize electrolytes Consider therapeutic anticoagulation when cleared by surgery (3) Myocardial bridge: Recent myocardial stress testing was unremarkable, normal EF Attempt to achieve rate control (4) Polycythemia: Can continue outpatient phlebotomy as needed (5) Obstructive sleep apnea: Also known history of restrictive lung disease and asbestosis His home CPAP is not working Patient needs to get new device at home (6) Hypertension: Home bisoprolol-HCTZ and lisinopril on hold Hydralazine as needed (7) Dyslipidemia: Continue statin (8) Asthma: Continue Pulmicort Continue DuoNebs Supplemental oxygen support as needed Qualifiers: Asthma severity: mild Asthma persistence: persistent Asthma complication type: uncomplicated Qualified Code(s): J45.30 - Mild persistent asthma, uncomplicated (9) Restrictive lung disease due to kyphoscoliosis: Management as above (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 Coding Level of Care Code Acute Code for Chg Fwd Diagnoses Status post left hemicolectomy Z90.49 Atrial fibrillation with rapid ventricular response I48.91 Myocardial bridge Q24.5 Polycythemia D75.1 Obstructive sleep apnea G47.33 Hypertension I10 Dyslipidemia E78.5 Asthma J45.30 Asthma severity: mild Asthma persistence: persistent Asthma complication type: uncomplicated Restrictive lung disease due to kyphoscoliosis J98.4; M41.9 Degenerative joint disease (DJD) of lumbar spine M47.816 Goiter E04.9 Gout M10.9 Hypophosphatemia E83.39 Hypokalemia E87.6 Hypernatremia E87.0 Fever R50.9 Hyperkalemia E87.5 COVID-19 U07.1
[2022-10-14] MEDS: ondansetron 2 mg/ML SDV 2 mL 4 MG IVP (19:17)
[2022-10-14] MEDS: atorvastatin 40 mg Tablet 20 MG PO (20:20)
[2022-10-14] MEDS: trazodone 150 mg Tablet 300 MG PO (21:36)
[2022-10-14] MEDS: folic acid 1 mg Tablet PO (22:01)
[2022-10-14] MEDS: dilTIAZem 60 mg Tablet PO (23:50)
[2022-10-15] VITALS (45 sets, daily range): BP systolic 80–113; BP diastolic 51–84; PULSE 103–147; RESP 16–32; TEMP 36.3–37.1; O2SAT 86–100; BMI 38.5
[2022-10-15] MEDS: ondansetron 2 mg/ML SDV 2 mL 4 MG IVP ×2 (01:18→08:12)
[2022-10-15] MEDS: piperacillin-tazobactam 3.375 GM in sodium chloride 0.9% (plus) 50 ML IV ×3 (01:18→18:28)
[2022-10-15] MEDS: dilTIAZem 100 MG in sodium chloride 0.9% (add-van) 100 ML IV (02:20)
--- NOTE | 2022-10-15 02:30 | PC.NURSE ---
Cardizem Throughout the night, patient's HR remaining in the 120-140s. Dr. Carter contacted around 2310 and telephone order received to start 60 mg cardizem PO Q6HR scheduled. Following administration of PO cardizem, patient's HR still maintaining in the 130-140s. Dr. Carter contacted again and order received to start a cardizem drip. See MAR for administration.
[2022-10-15] MEDS: HYDROmorphone 1 mg/mL INJ 1 mL IVP ×3 (02:53→11:07)
--- NOTE | 2022-10-15 04:15 | PC.NURSE ---
HR Patient's Hr still maintaining in the 130-140s while patient's blood pressure decreased significantly, ranging from 89-91 systolic and 56-71 diastolic with cardizem administering at 10 mg/min. Dr. Carter contacted and order received to D/C cardizem drip and start amio drip at 1 mg/min. See MAR for details.
[2022-10-15 05:23] LABS: Basophils # 0.1 10^3/uL (0.0-0.1); Basophils % 0.3 %; Eosinophils # 0.1 10^3/uL (0.0-0.8); Eosinophils % 0.8 %; Hematocrit 46.6 % (42.0-52.0); Lymphocytes % 5.8 %; Mean Corpuscular HGB Conc 32.2 g/dL (30.0-36.0); Mean Corpuscular Volume 99.4 fl (80-94); Mean Platelet Volume 9.8 fL (7.4-10.4); Monocytes # 1.2 10^3/uL (0.2-0.9); Monocytes % 6.8 %; Neutrophils # 14.48 10^3/uL (1.8-7.7); Neutrophils % 83.4 %; Nucleated Red Blood Cells % 0.1 %; Platelet Count 258 10^3/cmm (130-400); Red Blood Count 4.69 10^6/uL (4.1-5.3); Red Cell Distribution Width 15.9 % (12.1-15.1); White Blood Count 17.4 10^3/uL (4.0-10.0)
[2022-10-15 05:37] LABS: Blood Urea Nitrogen 20 mg/dL (8-23); Carbon Dioxide 29 mmol/L (22-29); Chloride 93 mmol/L (98-107); Sodium 132 mmol/L (136-145)
[2022-10-15 05:38] LABS: Albumin Level 2.6 g/dL (3.5-5.2); Calcium 9.1 mg/dL (8.5-10.5); Glomerular Filtration Rate 43.3 mL/min (90-130); Glucose 137 mg/dL (65-115); Magnesium 1.9 mg/dL (1.7-2.3); Phosphorus 3.9 mg/dL (2.5-4.5)
[2022-10-15 05:40] LABS: Anion Gap 13.5 (5-19); Potassium 3.5 mmol/L (3.5-5.1)
--- NOTE | 2022-10-15 06:58 | PC.NURSE ---
PO Cardizem D/Cd Patient's HR mainly in the 120s with the amio drip still administering at 1 mg/min. 60 mg PO cardizem due at 0545; Dr. Carter contacted and telephone order received to discontinue PO cardizem and continue amio drip at 1 mg/min. See MAR for details.
--- NOTE | 2022-10-15 07:13 | CT_ITS ---
WS: [id number] CT ABDOMEN AND PELVIS WITH CONTRAST (IV, oral and rectal). HISTORY: possible new infection, status post recent partial colectomy. TECHNIQUE: Imaging performed of the abdomen and pelvis with IV contrast. Oral and rectal. Single phas e imaging of the abdomen. Coronal and sagittal reformats are submitted. All CT scans at [facility] use at least one of these dose optimization techniques: automated exposure control; mA and/or k V adjustment per patient size (includes targeted exams where dose is matched to clinical indication); or iterative reconstruction. IV CONTRAST: Omnipaque 350; 95 mL IV. Oral contrast: Oral and rectal. DLP: 1404.35 mGy.cm COMPARISON: 07/18/2022 Lower thorax: Very mild dependent changes at the lung bases with areas of atelectasis. Normal size he art. No hiatal hernia. Liver/biliary system: Very subtle and vague area of decreased attenuation in the RIGHT lobe of liver measuring 2.6 x 2.3 cm. Not significantly changed since 07/18/2022 but new since 2015. No bile duct d ilatation. There is a small amount of air near the poly hepatis. Gallbladder: Normal. No gallstones or wall thickening. No pericholecystic fluid. Pancreas: Normal size pancreas and pancreatic duct. No adjacent inflammation. Spleen: Normal size spleen. No mass or infarct. Adrenal glands: Normal. Right kidney: Normal size kidney. Nonobstructing central calcifications. No obstruction. Left kidney: 2.9 x 3.1 cm cyst upper pole. No obstruction. Aorta: Mild atherosclerosis with no aneurysm. Patient is recently status post near complete colectomy. Anastomotic sutures near the sigmoid are kristofer ntified and there is a large amount of air and fluid near the anastomotic sutures. There is a large a mount of free intraperitoneal air throughout the abdomen and subcutaneous air especially along the RI GHT and anterior abdominal wall. Stomach is distended with fluid and air. There is small bowel disten tion. Free fluid along the LEFT paracolic gutter and RIGHT pelvis. Mild enhancement of the peritoneum suggesting peritonitis. Mild diffuse mesenteric edema. There is fluid extending along the anterior a bdominal wall at the surgical site. This fluid is contiguous with a small collection measuring 3.2 x 3.0 cm in the pelvis. Fluid is of increased attenuation suggesting there may be some hemorrhage or b lood associated with the edema. Surgical drain in the central pelvis. After rectal contrast is administered. There is dehiscence at the surgical suture site. At the dehisc ence is a large amount of free air and also extravasation of the rectal contrast from the lumen of th e GI tract. Less enhancement at the surgical anastomotic site suggesting ischemic changes. There is a small amount of air in the urinary bladder which is probably due to recent catheterization . Bones: Extensive surgical hardware in the thoracic and lumbar spine. CT/CT abdomen pelvis w con* [id number] IMPRESSION: 1. Large amount of free air within the abdomen and pelvis. Also subcutaneous e mphysema along the anterior abdominal wall. 2. Free fluid along the LEFT paracolic gutter. Additional fluid in the midline pelvis which is contiguous with the surgical excision hyperdense fluid. Suspec t component of hematoma associated with the midline collection. Mild enhancemen t of the peritoneum suggesting peritonitis. No focal well formed fluid collecti ons. 3. Moderate to large dehiscence with ischemic changes at the surgical anastomo tic site near the sigmoid. Dehiscence with a large amount of adjacent extralumi nal air and rectal contrast. 4. Again noted is the area of decreased attenuation in the RIGHT lobe of the l iver. This was previously imaged by MRI also but indeterminate. Anticipate [address] follow-up after patient's acute condition improves. 5. Small bowel ileus. Attempted notification of Isaias Soares DO at 10/15/2022 11:27 AM. Unable to reach Dr. Soares. Notified Isaias Soares DO at 10/15/2022 11:33 AM.
--- NOTE | 2022-10-15 07:20 | PM.PN ---
Subjective Medications: Medication Review Details: Patient having increased abdominal pain and nausea overnight. No emesis. Vitals/I&O/Wt Last Vital Signs Temp 98.8 F 10/15/22 04:30 Pulse 122 H 10/15/22 06:30 Resp 30 H 10/15/22 06:30 BP 81/58 10/15/22 06:30 Pulse Ox 95 10/15/22 06:30 O2 Del Method 10/15/22 04:30 O2 Flow Rate 4 10/15/22 04:30 10/14/22 10/15/22 10/15/22 22:59 06:59 14:59 Intake Total 530 / 1231.25 214.083 / 1445.333 Output Total 35 / 35 60 / 95 Balance 495 / 1196.25 154.083 / 1350.333 Weight last 48 hrs Weight 316 lb Physical Exam Narrative: General: No acute distress, awake alert and oriented x3 Abdomen: Soft, distended, diffuse tenderness, no guarding rebound or masses Incisions intact without erythema or exudate, some black output from inferior aspect of wound MISTI thin black output, nonodorous Urinary Catheter Management: Orellana: Cath Placed During This Visit: yes, but has since been removed by the nurse Reason for Continuing Indwelling Catheter: Decision to DC Catheter Urinary Catheter Date of Insertion: 10/08/22 Urinary Catheter Time of Insertion: 07:20 Date Urinary Catheter Removed: 10/10/22 Time Urinary Catheter Discontinued: 17:45 Data 10/15/22 04:15 10/15/22 04:15 A&P Assessment and plan (1) Colon cancer: (2) Status post left hemicolectomy: (3) Hyperkalemia: (4) Atrial fibrillation with RVR: Plan Postoperative day #[address] Abd/pelvis with IV, oral and rectal contrast Concern for possible colonic necrosis due to black MISTI output and history of Kayexelate given on POD#0 Furgther management pending results of CT Medical management per medicine-appreciate input Attestations Medical Necessity Statement*: Requires multiple more nights in the hospital for intensive care following hemicolectomy for colon cancer Coding Level of Care Code Acute Code for Chg Fwd Diagnoses Colon cancer C18.9 Status post left hemicolectomy Z90.49 Hyperkalemia E87.5 Atrial fibrillation with RVR I48.91
--- NOTE | 2022-10-15 07:41 | PC.NURSE ---
Dr. Soares at bedside, observed distended abdomen high HR and patient feeling worse. gave v.o. for abdominal CT with oral IV and rectal contrast. gave order for 4x4 dressing only to abdomen
--- NOTE | 2022-10-15 08:13 | P.PN_ITS ---
Subjective Subjective: Patient was seen and examined this morning was complaining of severe abdominal pain, CT abdomen and pelvis done today: Has shown Large amount of free air within the abdomen and pelvis, surgery is of the opinion: That there is anastomotic leak with moderate to large dehiscence at the anastomosis, and plan to do immediate exploratory laparotomy, with possible bowel resection and ostomy formation. Patient has continued to be in A. fib with RVR with soft blood pressures, Card izem and metoprolol has been kept on hold, currently on amiodarone drip. Medications: Reviewed: Yes Medication Review Details: Generic Name Dose Route Start Last Admin Trade Name Freq PRN Reason Stop Dose Admin Acetaminophen 650 mg 10/13/22 19:53 10/13/22 20:21 Acetaminophen 32 5 Mg Tablet PO 650 mg Q6H PRN Administration FEVER Albuterol/Ipratrop ium 3 ml 10/09/22 14:00 10/15/22 01:29 Ipratropium-Albu terol 3 Ml Neb INHALATION Not Given Q6H.RESP SOFIA Amiodarone HCl 400 mg 10/13/22 11:56 10/14/22 19:18 Amiodarone 200 M g Tablet PO 400 mg BID SOFIA Administration Atorvastatin Calci um 20 mg 10/13/22 21:00 10/14/22 20:20 Atorvastatin 40 Mg Tablet PO 20 mg BEDTIME SOFIA Administration Budesonide 0.5 mg 10/08/22 20:00 10/14/22 19:42 Budesonide 0.5 M g/2 Ml Neb INHALATION Not Given BID.RESPIRATORY S CH Enoxaparin Sodium 40 mg 10/14/22 10:15 10/14/22 11:08 Enoxaparin 40 Mg /0.4 Ml Syringe SUBCUT 40 mg Q24H SOFIA Administration Fentanyl 1 patch 10/09/22 14:15 10/12/22 15:05 Fentanyl 25 Mcg Patch TRANSDERMA 1 patch Q72H SOFIA Administration Folic Acid 1 mg 10/13/22 22:00 10/14/22 22:01 Folic Acid 1 Mg Tablet PO 1 mg DAILY@2200 SOFIA Administration Hydralazine HCl 10 mg 10/11/22 08:39 10/12/22 02:19 Hydralazine 20 M g/Ml Inj 1 Ml IVP 10 mg Q6H PRN Administration SBP >160 Hydromorphone HCl 1 mg 10/08/22 15:10 10/15/22 02:53 Hydromorphone 1 Mg/Ml Inj 1 Ml IVP 1 mg Q2H PRN Administration PAIN Piperacillin Sod/T azobactam 50 mls @ 12.5 mls /hr 10/09/22 10:00 10/15/22 05:54 Sod 3.375 gm/ So dium Chloride IV Infused Q8H SOFIA Infusion Dextrose/Sodium Ch loride 1,000 mls @ 50 ml s/hr 10/11/22 17:15 10/15/22 05:54 Dextrose 5%-Sod Chloride 0.45% IV 50 mls/hr .Q20H SOFIA Infusion Amiodarone HCl 900 mg/ 518 mls @ 0 mls/h r 10/15/22 04:00 10/15/22 04:21 Dextrose/ IV Misce llaneous IV 1 mg/min Supplies .Q0M SOFIA 34.53 mls/hr Administration Protocol Per Protocol Metoprolol Tartrat e 50 mg 10/14/22 09:00 10/14/22 20:20 Metoprolol Tartr ate 25 Mg Tablet PO 50 mg BID@0900,2100 SOFIA Administration Ondansetron HCl 4 mg 10/08/22 13:09 10/15/22 01:18 Ondansetron 2 Mg /Ml Sdv 2 Ml IVP 4 mg Q6H PRN Administration NAUSEA AND VOMITI NG Pantoprazole Sodiu m 40 mg 10/11/22 09:00 10/14/22 20:20 Pantoprazole 40 Mg Sdv IVP 40 mg Q12H SOFIA Administration Simethicone 40 mg 10/14/22 00:41 10/14/22 20:30 Simethicone 80 M g Chew PO 40 mg TID PRN Administration HICCUPS Trazodone HCl 300 mg 10/13/22 21:00 10/14/22 21:36 Trazodone 150 Mg Tablet PO 300 mg BEDTIME SOFIA Administration Vitals/I&O/Wt Last Vital Signs Temp 98.8 F 10/15/22 04:30 Pulse 122 H 10/15/22 06:30 Resp 30 H 10/15/22 06:30 BP 81/58 10/15/22 06:30 Pulse Ox 95 10/15/22 06:30 O2 Del Method 10/15/22 04:30 O2 Flow Rate 4 10/15/22 04:30 10/14/22 10/15/22 10/15/22 22:59 06:59 14:59 Intake Total 530 / 1231.25 214.083 / 1445.333 Output Total 35 / 35 60 / 95 Balance 495 / 1196.25 154.083 / 1350.333 Weight last 48 hrs Weight 143.335 kg Physical Exam Const: COMMON NORMALS: patient oriented x3 HENMT: COMMON NORMALS: normocephalic and atraumatic HEAD & SCALP: normocephalic and atraumatic Resp: COMMON NORMALS: clear to auscultation bilaterally AUSCULTATION: clear to auscultation bilaterally Cardio: COMMON NORMALS: Peripheral pulses 2+ throughout PERIPHERAL PULSES: Peripheral pulses 2+ throughout GI: COMMON NORMALS: Normal to inspection, nondistended, normoactive bowel sounds present, Soft to palpation, non-tender, No hepatosplenomegaly present and no masses AUSCULTATION: Yes normoactive bowel sounds PALPATION: Yes Soft to palpation and Yes No hepatosplenomegaly present RECTAL EXAM: Yes deferred Extremity: COMMON NORMALS: no clubbing, cyanosis or edema and no pedal edema Neuro: COMMON NORMALS: patient oriented x3 Urinary Catheter Management: Orellana: Cath Placed During This Visit: yes, but has since been removed by the nurse Reason for Continuing Indwelling Catheter: Decision to DC Catheter Urinary Catheter Date of Insertion: 10/08/22 Urinary Catheter Time of Insertion: 07:20 Date Urinary Catheter Removed: 10/10/22 Time Urinary Catheter Discontinued: 17:45 Data 10/15/22 04:15 10/15/22 04:15 A&P Assessment and plan (1) Status post left hemicolectomy: POD #1, done for adenocarcinoma of splenic flexure identified on routine colon cancer screening recently. (2) Atrial fibrillation with rapid ventricular response: In a patient with known chronic atrial fibrillation, on bisoprolol in combination with HCTZ as only rate controlling medication at home Goals post operatively patient was hyperkalemic which may have been contributing. However patient continues to be in rapid A. fib with RVR and spite of being on Cardizem drip since 08/08/2022 in addition to metoprolol 5 mg IV every 3 hours as scheduled medication. He is unable to be weaned down from 10 mg/h Cardizem. Digoxin 250 mcg was given 10/11 without any significant effect. started amiodarone 10/11 150 mg over 15 minutes followed by titratable drip at 1 mg/h. Metoprolol 5mg ivp q4h Has been on Xarelto for anticoagulation, but held 5 days prior to surgery. Restarted anticoagulation with Lovenox 1 mg/kg every 12 hours with plan to transition to Xarelto at discharge. 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 Has myocardial perfusion study on 10/05/22. Ischemic work-up was negative. C urrently troponin series additionally negative. No acute ST-T wave changes to suggest acute coronary syndrome. 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 No current complaints of chest pain though need to try to maintain rate control. Had myocardial perfusion imaging on October 05, 2022 that did not show evidence of ischemia and revealed a normal ejection fraction. (4) Polycythemia: Secondary, has been managed with blood donation periodically. Preoperative hemoglobin same. (5) Obstructive sleep apnea: Not currently using cpap at home due to malfunction of machine. ABG with evidence of hypercapnic hypoxic respiratory failure. Known restrictive lung disease and asbestosis. At baseline uses CPAP at home, unable to utilize BiPAP given abdominal surgery. Currently saturating 93% on supplemental O2, does drop down to 70% on room air. Does not typically use oxygen at home. Continue to use DuoNeb and budesonide scheduled inhalation. No current indication for steroid use. Suspect that patient may have underlying baseline hypoxia and will likely require supplemental O2 at discharge. (6) Hypertension: Chronic diagnosis, usually on bisoprolol-HCTZ and lisinopril. Both held prior to surgery. Currently with low normal blood pressures in setting of recent medications and post-operative state. (7) Dyslipidemia: Chronically on statin therapy. (8) Asthma: Does not appear acutely exacerbated at present. Chronically on budesonide- fomoterol HFA. 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 (11) COVID-19: Had COVID in early 08/2022 and was hospitalized in [place] briefly needing oxygen. (12) Goiter: Last TSH recorded in our system is from 09/2020, low normal. (13) Gout: Chronically on allopurinol (14) Fever: Likely 2/2 coronavirus infection (NOT COVID) (15) Hyperkalemia: Now resolved (16) Hypernatremia: Was on D5 half NS: Has been discontinued: As patient is becoming hyponatremic. (17) TALON (acute kidney injury): Attestations Medical Necessity Statement*: Per primary team Critical Care Time: The high probability of a clinically significant, sudden or life threatening deterioration of the patient's [] system(s) required my full and direct attention, intervention and personal management. The critical care time is as shown. This time is in addition to time spent performing any reported procedures but includes the following: [x] Data and vital sign review and interpretation [x] Patient assessment, examination and intervention [x] Documentation [x] Medication orders and management Critical Care Time (min): 30 Coding Level of Care Code Acute Code for Chg Fwd Exam Detailed Diagnoses Status post left hemicolectomy Z90.49 Atrial fibrillation with rapid ventricular response I48.91 Myocardial bridge Q24.5 Polycythemia D75.1 Obstructive sleep apnea G47.33 Hypertension I10 Dyslipidemia E78.5 Asthma J45.30 Asthma complication type: uncomplicated Asthma persistence: persistent Asthma severity: mild Restrictive lung disease due to kyphoscoliosis J98.4; M41.9 Degenerative joint disease (DJD) of lumbar spine M47.816 COVID-19 U07.1 Goiter E04.9 Gout M10.9 Fever R50.9 Hyperkalemia E87.5 Hypernatremia E87.0 TALON (acute kidney injury) N17.9
[2022-10-15] MEDS: pantoprazole 40 mg SDV IVP ×2 (08:21→20:50)
[2022-10-15] MEDS: iohexol 350 mg/mL 500 mL Btl (per mL) IV (11:09)
[2022-10-15] MEDS: iohexol 350 mg/mL 500 mL Btl (per mL) PO (11:11)
--- NOTE | 2022-10-15 13:12 | ANES.PREANE2 ---
Pre-Anesthetic Assessment Height/Weight: Height 1.93 m Weight 143.335 kg Temp Pulse Resp BP Pulse Ox O2 Del Method O2 Flow Rate 98.0 F 113 H 26 H 96/54 86 L 5 10/15/22 12:00 10/15/22 12:00 10/15/22 12:00 10/15/22 12:00 10/15/22 12:00 10/15/22 12:00 10/15/22 12:00 Preop Diagnosis: Colon Cancer Operation Date: 10/08/22 07:00 Proposed Procedures p Laparoscopic Left Hemicolectomy 72533/c18.9/k76.9(Left) - Isaias Soares DO Operation Date: 10/15/22 13:40 Proposed Procedures p Exploratory Laparotomy(Not Applicable) - Isaias Soares DO Familial anesthetic complications: none Was Beta Larissa taken within 24 hours: Yes Was Clonidine taken within 24 hours: N/A Last intake: Intake Last Liquid Date 10/07/22 Last Liquid Time 22:00 Last Solid Date 10/06/22 Social No alcohol and No tobacco (h/o smoking) Exam alert and oriented x 3 tachy, afib--amio infusion Airway Submandibular: within normal limits Cervical ROM: within normal limits Mallampati: Class II Dentition: false Pulmonary Asthma, Chronic Obstructive Pulmonary Disease and Sleep Apnea CV/HEM Atrial Fibrillation and Hypertension polycythemia acute renal insufficiency Metabolic Hyperlipidemia and Morbid Obesity [facility] [place] Osteoarthritis/DJD Anesthetic Plan ASA status: 4E Anesthesia: General (Mod RSI) Medications/Allergies Home Medications Medication Instructions Recorded Confirmed Last Taken Type allopurinol 300 mg tablet 300 mg PO DAILY@219910/15/19 10/09/22 09/18/22 History folic acid 1 mg tablet 1 mg PO DAILY@219910/15/19 10/09/22 09/17/22 History multivitamin 6 tab PO DAILY@219910/15/19 10/08/22 10/07/22 History ascorbic acid (vitamin C) 1,000 mg 1,000 mg PO DAILY@219910/27/19 10/09/22 09/17/22 History tablet (Vitamin C) sennosides 8.6 mg tablet (senna) 8.6 mg PO DAILY PRN Constipation 10/27/19 10/08/22 10/07/22 History vitamin E 670 mg (1,000 unit) 1,000 unit PO DAILY@2200 10/27/19 10/09/22 09/17/22 History capsule biotin 1 mg tablet 1 mg PO DAILY 11/15/20 10/09/22 09/17/22 History glucosamine 750 mg-chondroit 100 2 tab PO DAILY 11/15/20 10/08/22 10/07/22 History mg-msm-D3 25 bma-[id number] bor tablet lycopene 10 mg capsule 10 mg PO DAILY 11/15/20 10/09/22 09/17/22 History resveratrol 250 mg capsule 250 mg PO QPM 11/15/20 10/09/22 09/17/22 History saw palmetto 500 mg capsule 500 mg PO DAILY 11/15/20 10/09/22 09/17/22 History Custom Molded Orthotics #1 ea 10/30/21 10/09/22 Unknown Rx Night splint to Right #1 ea 10/30/21 10/09/22 Unknown Rx loratadine 10 mg tablet (Claritin) 10 mg PO DAILY PRN Allergy Symptoms 11/21/21 10/09/22 07/17/22 History lovastatin 40 mg tablet 40 mg PO BEDTIME 11/21/21 10/09/22 09/18/22 History budesonide-formoterol HFA 80 2 puff inhalation BID@ #10.2 01/19/22 10/09/22 09/16/22 Rx mcg-4.5 mcg/actuation aerosol grams inhaler (Symbicort) testosterone cypionate 200 mg/mL 120 mg (0.6 mL) IM Q7D #10 mL 06/21/22 10/08/22 10/02/22 Rx intramuscular oil bisoprolol 10 2 tab PO BEDTIME 07/18/22 10/09/22 09/18/22 History mg-hydrochlorothiazide 6.25 mg tablet ketoconazole 2 % shampoo 1 applic topical DAILY PRN Rash 07/18/22 10/08/22 10/05/22 History tadalafil 20 mg tablet (Cialis) 20 mg PO DAILY PRN sexual activity 09/18/22 10/09/22 Unknown History rivaroxaban 20 mg tablet (Xarelto) 20 mg PO QPM 10/05/22 10/09/22 10/02/22 History acetaminophen 500 mg tablet 1,000 mg PO BID PRN Pain 10/09/22 10/09/22 Unknown History cholecalciferol (vitamin D3) 10 10 mcg PO DAILY 10/09/22 10/09/22 Unknown History mcg (400 unit) capsule (Vitamin D3) chromium picolinate 1,000 mcg 1,000 mcg PO DAILY 10/09/22 10/09/22 Unknown History tablet lisinopril 20 mg tablet 20 mg PO BEDTIME 10/09/22 10/09/22 Unknown History melatonin 5 mg tablet 5 mg PO BEDTIME 10/09/22 10/09/22 Unknown History trazodone 150 mg tablet 300 mg PO BEDTIME 10/09/22 10/09/22 Unknown History triamcinolone acetonide 0.1 % 1 applic topical EVERY OTHER DAY 10/09/22 10/09/22 Unknown History topical cream Allergies Allergy/AdvReac Type Severity Reaction Status Date / Time oats Allergy DIARRHEA Verified 10/08/22 06:11 apixaban [From Eliquis] AdvReac Severe Headaches Verified 10/08/22 06:11 caffeine AdvReac Unknown PALPITATION Verified 10/08/22 06:11 S apple AdvReac DIARRHEA, Verified 10/08/22 06:11 VOMITING AND CRAMPING egg AdvReac DIARRHEA, Verified 10/08/22 06:11 VOMITING AND STOMACH CRAMPING meperidine [From Demerol] AdvReac EXCESSIVE Verified 10/08/22 06:11 SEDATION morphine AdvReac HALLUCINATI Verified 10/08/22 06:11 ONS berries Allergy Unknown Uncoded 10/08/22 06:11 raw tomatoes Allergy ADR-Gastrointestinal Uncoded 10/08/22 06:11 Upset FRYE AdvReac DIARRHEA Uncoded 10/08/22 06:11 Current Medications Generic Name Dose Route Start Last Admin Trade Name Freq PRN Reason Stop Dose Admin Acetaminophen 650 mg 10/13/22 19:53 10/13/22 20:21 Acetaminophen 325 Mg Tablet PO 650 mg Q6H PRN Administration FEVER Albuterol/Ipratropium 3 ml 10/09/22 14:00 10/15/22 01:29 Ipratropium-Albuterol 3 Ml Neb INHALATION Not Given Q6H.RESP SOFIA Amiodarone HCl 400 mg 10/13/22 11:56 10/15/22 08:29 Amiodarone 200 Mg Tablet PO Not Given BID SOFIA Atorvastatin Calcium 20 mg 10/13/22 21:00 10/14/22 20:20 Atorvastatin 40 Mg Tablet PO 20 mg BEDTIME SOFIA Administration Budesonide 0.5 mg 10/08/22 20:00 10/14/22 19:42 Budesonide 0.5 Mg/2 Ml Neb INHALATION Not Given BID.RESPIRATORY SOFIA Enoxaparin Sodium 40 mg 10/14/22 10:15 10/15/22 12:30 Enoxaparin 40 Mg/0.4 Ml Syringe SUBCUT Not Given Q24H [facility] Fentanyl 1 patch 10/09/22 14:15 10/12/22 15:05 Fentanyl 25 Mcg Patch TRANSDERMA 1 patch Q72H SOFIA Administration Folic Acid 1 mg 10/13/22 22:00 10/14/22 22:01 Folic Acid 1 Mg Tablet PO 1 mg DAILY@2200 SOFIA Administration Hydralazine HCl 10 mg 10/11/22 08:39 10/12/22 02:19 Hydralazine 20 Mg/Ml Inj 1 Ml IVP 10 mg Q6H PRN Administration SBP >160 Hydromorphone HCl 1 mg 10/08/22 15:10 10/15/22 11:07 Hydromorphone 1 Mg/Ml Inj 1 Ml IVP 1 mg Q2H PRN Administration PAIN Piperacillin Sod/Tazobactam 50 mls @ 12.5 mls/hr 10/09/22 10:00 10/15/22 11:14 Sod 3.375 gm/ Sodium Chloride IV 12.5 mls/hr Q8H SOFIA Administration Dextrose/Sodium Chloride 1,000 mls @ 50 mls/hr 10/11/22 17:15 10/15/22 05:54 Dextrose 5%-Sod Chloride 0.45% IV 50 mls/hr .Q20H SOFIA Infusion Amiodarone HCl 900 mg/ 518 mls @ 0 mls/hr 10/15/22 04:00 10/15/22 04:21 Dextrose/ IV Miscellaneous IV 1 mg/min Supplies .Q0M SOFIA 34.53 mls/hr Administration Protocol Per Protocol Metoprolol Tartrate 50 mg 10/14/22 09:00 10/15/22 08:29 Metoprolol Tartrate 25 Mg Tablet PO Not Given BID@0900,2100 [facility] Ondansetron HCl 4 mg 10/08/22 13:09 10/15/22 08:12 Ondansetron 2 Mg/Ml Sdv 2 Ml IVP 4 mg Q6H PRN Administration NAUSEA AND VOMITING Pantoprazole Sodium 40 mg 10/11/22 09:00 10/15/22 08:21 Pantoprazole 40 Mg Sdv IVP 40 mg Q12H SOFIA Administration Simethicone 40 mg 10/14/22 00:41 10/14/22 20:30 Simethicone 80 Mg Chew PO 40 mg TID PRN Administration HICCUPS Trazodone HCl 300 mg 10/13/22 21:00 10/14/22 21:36 Trazodone 150 Mg Tablet PO 300 mg BEDTIME SOFIA Administration PFSH Anesthesia Medical History (Updated 10/14/22 @ 12:53 by Charan Shrestha MD) Afib Allergies Asperger syndrome mild Asthma Cardiomegaly Chronic low back pain Chronic pain syndrome Chronic sinusitis of both maxillary sinuses COVID-19 determined by clinical diagnostic criteria Degenerative joint disease (DJD) of lumbar spine Dyslipidemia Erectile dysfunction Gout Hypertension 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 Obstructive sleep apnea Opioid contract exists previous Osteoarthritis of hands, bilateral Osteoarthritis of knees, bilateral Polycythemia Restrictive lung disease due to kyphoscoliosis Right renal stone Substernal goiter Suspected exposure to asbestos Testosterone deficiency On TRT for 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 Surgical History (Updated 10/09/22 @ 10:18 by Isaias Soares DO) H/O ankle fusion H/O arthroscopic knee surgery H/O wrist surgery History of appendectomy History of back surgery History of shoulder surgery S/P ureteral stent placement Family History Grandfather CAD (coronary artery disease) Family/Other Cancer Grandmother Dementia Stroke Mother Lung disease Other Hypertension Denies family history of Rheumatoid arthritis Diabetes Lupus Clotting disorder Hyperlipidemia Chronic kidney disease (CKD) Suicide Anesthesia complication Bleeding disorder Social History (Updated 10/08/22 @ 18:09 by Lata Salmeron MD) Smoking and tobacco status: former smoker Quit status (tobacco): has quit using tobacco Year quit tobacco: 1975 [id number] Second hand smoke exposure: Yes Alcohol intake: never Lives independently: Yes Current occupational status: retired Pets and animals: Yes Current gender identity: Male Data Anesthesia 10/15/22 04:15 10/15/22 04:15 Short CBC 10/14/22 10/15/22 Range/Units 02:26 04:15 WBC 11.6 H 17.4 H (4.0-10.0) 10^3/uL Hgb 13.5 15.0 (11.7-16.6) g/dL Hct 42.7 46.6 (42.0-52.0) % MCV 100.5 H 99.4 H (80-94) fl Plt Count 210 258 (130-400) 10^3/cmm Neut % (Auto) 78.6 83.4 % Neut # (Auto) 9.13 H 14.48 H (1.8-7.7) 10^3/uL BMP 10/14/22 10/15/22 02:26 04:15 Sodium 136 132 L Potassium 2.9 L 3.5 Chloride 96 L 93 L Carbon Dioxide 32 H 29 BUN 13 20 Creatinine 0.9 1.6 H Glucose 132 H 137 H Calcium 8.4 L 9.1 Liver Function 10/14/22 10/15/22 Range/Units 02:26 04:15 Albumin 2.6 L 2.6 L (3.5-5.2) g/dL Cardiac Studies: Echocardiogram Ultrasound 10/17/20 Sestamibi Stress Test (Cardiology) 10/05/22
[2022-10-15 14:41] LABS: ABG PCO2 44.3 mmHg (35-45); ABG PH Result 7.41 (7.35-7.45); Alveolar-Arterial Oxygen Gradi 2.1 mmHg (5-10); Arterial Blood Gas Hematocrit 37.3 % (42-52); Base Excess ABG 2.5 mmol/L (-2.0-2.0); Blood Gas Operator Identificat WALCI; Blood Gas Sample Type Arterial; Carboxyhemoglobin 2.1 %THgb (0.4-20.1); HCO3 ABG 27.7 mmol/L (22-26); HGB O2 Sat 93.9 % (95-100); Ionized Calcium Level - ABG 1.1 mmol/L (1.1-1.4); Methemoglobin 0.6 % (0.4-1.5); Oxygen Saturation ABG 96.6; PO2 ABG 76.3 mmHg (80.0-100.0); Potassium Level - ABG 3.2 mmol/L (3.5-5.0); Total Hemoglobin 12.2 g/dL (14-18)
--- NOTE | 2022-10-15 17:30 | ANE.PACU2 ---
Inpatient post-anesthesia follow up: Airway intact: Yes (ETT) Vital signs: Temperature 98.0 F Pulse Rate 113 Respiratory Rate 26 Blood Pressure 96/54 Pulse Oximetry 86 Oxygen Delivery Me thod Nasal Cannula Oxygen Flow Rate 5 Fraction of Inspir ed Oxygen Hydration adequate: Yes Nausea and vomiting: No Pain level: 5 Mental status: Altered (Sedated) Additional Comments: Intubated/sedated to ICU, stable, contd afib/RVR
--- NOTE | 2022-10-15 17:40 | XRR_ITS ---
PROCEDURE INFORMATION: Exam: XR Chest Exam date and time: 10/15/2022 5:50 PM Age: 67 years old Clinical indication: Device placement; Other: Intubation TECHNIQUE: Imaging protocol: Radiologic exam of the chest. Views: 1 view. COMPARISON: CR XR chest 1V portable [id number] 10/10/2022 9:00 AM FINDINGS: Tubes, catheters and devices: Endotracheal tube is in satisfactory position with the tip approximately 6.5 cm above the shania. Nasogastric tube is in place with its tip in the stomach. Lungs: There is some partial atelectasis or infiltrate at the left lung base but improved compared with 10/10/2022. Visualized portions of the right lung are clear. Pleural spaces: Unremarkable. No pleural effusion. No pneumothorax. Heart/Mediastinum: Unremarkable. No cardiomegaly. Bones/joints: There are postsurgical changes in the thoracic spine not significantly changed. XR/XR chest 1V portable [id number] IMPRESSION: 1. Satisfactory position of endotracheal tube. 2. Partial atelectasis in the left lower lobe improved compared with 10/10/2022.
[2022-10-15] MEDS: sodium chloride 0.9% 1,000 ML 50 ML IV (18:23)
[2022-10-15 18:24] LABS: ABG PCO2 43.2 mmHg (35-45); ABG PH Result 7.35 (7.35-7.45); Arterial Blood Gas Hematocrit 37.9 % (42-52); Base Excess ABG -1.8 mmol/L (-2.0-2.0); Blood Gas Allen Test Pos; Blood Gas Operator Identificat MONRO; Blood Gas Sample Site Not specified; Blood Gas Sample Type Arterial; Fractionated Inspired Oxygen 0.8 %; HCO3 ABG 23.8 mmol/L (22-26); HGB O2 Sat 94.8 % (95-100); Methemoglobin 0.5 % (0.4-1.5); Oxygen Device VENT; Oxygen Saturation ABG 97.2; PO2 ABG 91.4 mmHg (80.0-100.0); Potassium Level - ABG 2.9 mmol/L (3.5-5.0); Total Hemoglobin 12.4 g/dL (14-18)
--- NOTE | 2022-10-15 19:22 | PC.NURSE ---
Addendum entered by Carlito Kulkarni RN 10/15/22 19:29: Received patient from OR staff at 1725. Patient is intubated. Started Versed and fentanyl for sedation. BP: 89/51, HR: 130, SPO2: 100%, Temp: 98.1. COlostomy was assessed, is pink with a small amount of bloody drainage. Original Note: Received patient from OR staff at 1725. Patient is intubated. Started Versed and fentanyl for sedation. BP: 89/51, HR: 130, SPO2: 100%, Temp: 98.1.
[2022-10-15] MEDS: potassium chloride premix 100 ML 25 MEQ IV (19:29)
[2022-10-15] MEDS: ipratropium-albuterol 3 mL Neb INHALATION (19:51)
[2022-10-15] MEDS: budesonide 0.5 mg/2 mL Neb INHALATION (19:51)
--- NOTE | 2022-10-15 20:06 | P.OP_ITS ---
Operative Report Date of procedure: October 15, 2022 Pre-op diagnosis: Preop Diagnosis anastomotic leak Preop Diagnosis Post-op diagnosis: same Procedure done: Exploratory laparotomy, partial colon resection, end colostomy formation Implants: 19 [place] Kurt drains x3 Specimens removed/disposition: Colonic anastomosis Surgeon: Dr. Isaias Soares DO Anesthesia: General Estimated blood loss (mL): 50 Complications: None apparent Brief History: This very pleasant 67-year-old gentleman who recently underwent a left hemicole ctomy for colon cancer at the splenic flexure. On postop day #7 he was found to have black drain output and increased abdominal pain. CT abdomen pelvis revealed an anastomotic leak. Exploratory laparotomy with partial colon resection and end colostomy formation was indicated. Risks and benefits were explained and documented. Procedure: Patient was wheeled to the operative room and placed on the OR table in supine position. The abdomen was inspected prepped and draped in usual sterile fashion. A timeout was performed all present were in agreement. General endotracheal intubation was achieved by the department anesthesia. Sabrina were removed from his midline incision and the skin was reopened. The #1 PDS suture was then removed to open the abdomen. The 19 [place] Kurt drain was also removed from the abdomen. There was a significant amount of fecal material in the abdomen. There were many bowel adhesions. Adhesions were very carefully broken with finger fracking. The abdomen was copiously irrigated and suctioned. At the anastomotic site it was obvious there was near complete dehiscence of the anastomosis. What was remaining of the distal sigmoid was transected using a MICH stapler with a blue 100 mm load. The distal end of the right colon was then clamped shut using [place]. The small bowel was ran and all adhesions were broken. Copious irrigation was placed into the abdomen and the abdominal contents were gently massaged in order to remove any particulate matter. 319 [place] Kurt drains were then placed into the abdomen. 2 drains were placed on the left side. The superior drain on the left went into the left paracolic gutter. The inferior drain on the left went into the pelvis. On the right side of the abdomen a drain was placed into the right pericolic gutter. An appropriate location was chosen for the colostomy. Bovie cautery was used on cut to remove a [place] of skin in the right lower quadrant. Fat was then removed with Bovie cautery. Bovie cautery was then used to further free up the right colon to create adequate length to make a right lower quadrant colostomy. The colon went up through the abdominal wall without tension. Bovie cautery was used to transect the fascia on both sides of the rectus muscle. A defect large enough to fit 2 fingerbreadths was formed and the colon was brought up through the right rectus muscles. The drains were then sewn in place using 3-0 nylon. The fascia was closed with #1 PDS in a running fashion x2. A wound VAC with a black sponge was then placed into the incision and no leak was noted. A distal portion of the: Was transected using curved [place] scissors. Fresh bleeding: Was noted. Colostomy was then matured in a typical fashion with interrupted 3-0 Vicryl sutures. Colostomy appliance was applied. Patient tolerated the procedure well and was taken to the intensive care unit.
[2022-10-15 20:11] LABS: Blood Urea Nitrogen 29 mg/dL (8-23); Calcium 8.6 mg/dL (8.5-10.5); Carbon Dioxide 24 mmol/L (22-29); Chloride 100 mmol/L (98-107); Glomerular Filtration Rate 37.8 mL/min (90-130); Glucose 157 mg/dL (65-115); Osmolality Calculated 289 mOsm/kg (285-295); Sodium 135 mmol/L (136-145)
[2022-10-15] MEDS: sodium chloride 0.9% 500 ML 999 ML IV (20:50)
[2022-10-15 22:02] LABS: Basophils # 0.1 10^3/uL (0.0-0.1); Basophils % 0.4 %; Eosinophils % 0.1 %; Hematocrit 42.9 % (42.0-52.0); Hemoglobin 13.7 g/dL (11.7-16.6); Lymphocytes # 0.5 10^3/uL (0.8-4.8); Lymphocytes % 3.4 %; Mean Corpuscular HGB Conc 31.9 g/dL (30.0-36.0); Mean Corpuscular Hemoglobin 31.8 pg (28.0-34.0); Mean Corpuscular Volume 99.5 fl (80-94); Monocytes # 1.1 10^3/uL (0.2-0.9); Monocytes % 6.7 %; Neutrophils # 13.65 10^3/uL (1.8-7.7); Neutrophils % 87.7 %; Nucleated Red Blood Cells % 0 %; Platelet Count 284 10^3/cmm (130-400); Red Blood Count 4.31 10^6/uL (4.1-5.3); Red Cell Distribution Width 16.1 % (12.1-15.1); White Blood Count 15.6 10^3/uL (4.0-10.0)
[2022-10-16] VITALS (59 sets, daily range): BP systolic 91–144; BP diastolic 55–80; PULSE 97–138; RESP 16–20; TEMP 36.8–37.3; O2SAT 93–98; BMI 41.2
[2022-10-16] MEDS: HYDROmorphone 1 mg/mL INJ 1 mL IVP ×2 (00:04→04:29)
[2022-10-16] MEDS: sodium chloride 0.9% 500 ML 999 ML IV (00:45)
[2022-10-16] MEDS: piperacillin-tazobactam 3.375 GM in sodium chloride 0.9% (plus) 50 ML IV ×3 (01:01→17:05)
[2022-10-16] MEDS: ipratropium-albuterol 3 mL Neb INHALATION ×4 (03:19→20:04)
[2022-10-16 03:30] LABS: ABG PCO2 40.2 mmHg (35-45); ABG PH Result 7.34 (7.35-7.45); Arterial Blood Gas Hematocrit 37.8 % (42-52); Base Excess ABG -3.6 mmol/L (-2.0-2.0); Blood Gas Sample Site Radial, left; Blood Gas Sample Type Arterial; HCO3 ABG 21.9 mmol/L (22-26); Oxygen Device VENT
[2022-10-16 04:13] LABS: Basophils # 0.1 10^3/uL (0.0-0.1); Basophils % 0.3 %; Hematocrit 42.1 % (42.0-52.0); Hemoglobin 13.2 g/dL (11.7-16.6); Lymphocytes # 0.6 10^3/uL (0.8-4.8); Lymphocytes % 3.6 %; Mean Corpuscular HGB Conc 31.4 g/dL (30.0-36.0); Mean Corpuscular Hemoglobin 31.3 pg (28.0-34.0); Mean Corpuscular Volume 99.8 fl (80-94); Mean Platelet Volume 10.1 fL (7.4-10.4); Monocytes # 1.4 10^3/uL (0.2-0.9); Monocytes % 8.2 %; Neutrophils # 14.95 10^3/uL (1.8-7.7); Neutrophils % 86.2 %; Nucleated Red Blood Cells % 0 %; Platelet Count 287 10^3/cmm (130-400); Red Blood Count 4.22 10^6/uL (4.1-5.3); Red Cell Distribution Width 16.3 % (12.1-15.1); White Blood Count 17.4 10^3/uL (4.0-10.0)
[2022-10-16] MEDS: sodium chloride 0.9% 1,000 ML 50 ML IV (04:28)
[2022-10-16 04:32] LABS: Alanine Aminotransferase 14 U/L (0-41); Albumin Level 2.4 g/dL (3.5-5.2); Alkaline Phosphatase 46 U/L (40-130); Anion Gap 16.3 (5-19); Aspartate Amino Transferase 20 U/L (0-40); Blood Urea Nitrogen 33 mg/dL (8-23); Calcium 7.7 mg/dL (8.5-10.5); Carbon Dioxide 23 mmol/L (22-29); Chloride 101 mmol/L (98-107); Globulin 3.1 g/dL (1.3-4.6); Glomerular Filtration Rate 35.5 mL/min (90-130); Glucose 185 mg/dL (65-115); Magnesium 1.9 mg/dL (1.7-2.3); Osmolality Calculated 294 mOsm/kg (285-295); Potassium 4.3 mmol/L (3.5-5.1); Sodium 136 mmol/L (136-145); Total Bilirubin 0.6 mg/dL (0.15-1.2); Total Protein 5.5 g/dL (6.6-8.7)
[2022-10-16] MEDS: budesonide 0.5 mg/2 mL Neb INHALATION ×2 (07:33→20:04)
[2022-10-16] MEDS: pantoprazole 40 mg SDV IVP ×2 (08:07→21:09)
[2022-10-16] MEDS: propofol 1,000 MG/100 ML INJ 17.2 MG IV (08:57)
[2022-10-16] MEDS: enoxaparin 40 mg/0.4 mL Syringe SUBCUT (09:29)
--- NOTE | 2022-10-16 11:47 | PC.NURSE ---
Dr. Don at bedside this morning, observed HR afib 130s to 140, gave order to start Propofol and titrate Levophed accordingly for map of 65, Central line placed per Dr. Don for adequate venous access
--- NOTE | 2022-10-16 11:49 | XR_ITS ---
WS: [id number] Portable AP upright chest, 10/16/2022 Clinical Data: Intubated/tube placement Comparison: Portable chest, 10/15/2022 Findings: The tip of the endotracheal tube is obscured by the posterior thoracic fusion rods. Probabl y the distal tip of the tube ends above the shania at the level of clavicles. The heart is enlarged. There is a nasogastric tube within the esophagus. There are bilateral patchy opacities at the lung ba ses consistent with atelectasis and/or minimal pneumonia. There are monitor leads over the chest wall . XR/XR chest 1V portable [id number] Impression: 1. Endotracheal tube probably ends at the level of the clavicles although detai l is obscured by the fusion rods and clips of the posterior thoracic spine. 2. Cardiomegaly. 3. Bilateral patchy basilar pulmonary opacities which could represent atelectas is and/or pneumonia.
[2022-10-16] MEDS: propofol 1,000 MG/100 ML INJ 30.1 MG IV ×6 (12:12→23:27)
--- NOTE | 2022-10-16 12:30 | PM.ACPR ---
Acute Procedures Central Line Placement: Right Femoral: Time out performed: Yes Patient placed on monitor/pulse ox: Yes MD prep: mask, gown and gloves Central line prep: Chlorhexidine scrub and sterile drapes applied Local anesthesia used: lidocaine 1% Amount of anesthesia used (ml): 10 Ultrasound used for placement: Yes Central line lumen inserted: triple Post procedure: sutured in place, good blood return, all ports aspirated, flushed, capped and sterile dressing applied Patient tolerated procedure: well and no complications Complications: none
--- NOTE | 2022-10-16 12:32 | P.PN_ITS ---
Subjective Subjective: Patient was seen and examined this morning, currently is intubated sedated on mechanical ventilation, Underwent: Exploratory laparotomy, partial colon resection, end colostomy formation, yesterday. Currently is in A. fib with RVR, with rate in 120s to 130s, on amiodarone drip, he is also requiring Levophed. Serum creatinine is trending up: 1.9 today, if continue to trend up, and renal function diminishes, will have to get nephrology on board. For now we will continue to monitor repeat BMP, monitor urine output. Currently on Versed fentanyl and propofol, for sedation. ABG x-ray chest, labs have been reviewed. Medications: Reviewed: Yes Medication Review Details: Generic Name Dose Route Start Last Admin Trade Name Freq PRN Reason Stop Dose Admin Acetaminophen 650 mg 10/13/22 19:53 10/13/22 20:21 Acetaminophen 32 5 Mg Tablet PO 650 mg Q6H PRN Administration FEVER Albuterol/Ipratrop ium 3 ml 10/09/22 14:00 10/16/22 07:30 Ipratropium-Albu terol 3 Ml Neb INHALATION 3 ml Q6H.RESP SOFIA Administration Amiodarone HCl 400 mg 10/13/22 11:56 10/15/22 08:29 Amiodarone 200 M g Tablet PO Not Given BID SOFIA Atorvastatin Calci um 20 mg 10/13/22 21:00 10/14/22 20:20 Atorvastatin 40 Mg Tablet PO 20 mg BEDTIME SOFIA Administration Budesonide 0.5 mg 10/08/22 20:00 10/16/22 07:33 Budesonide 0.5 M g/2 Ml Neb INHALATION 0.5 mg BID.RESPIRATORY S CH Administration Enoxaparin Sodium 40 mg 10/14/22 10:15 10/16/22 09:29 Enoxaparin 40 Mg /0.4 Ml Syringe SUBCUT 40 mg Q24H SOFIA Administration Folic Acid 1 mg 10/13/22 22:00 10/14/22 22:01 Folic Acid 1 Mg Tablet PO 1 mg DAILY@2200 SOFIA Administration Hydralazine HCl 10 mg 10/11/22 08:39 10/12/22 02:19 Hydralazine 20 M g/Ml Inj 1 Ml IVP 10 mg Q6H PRN Administration SBP >160 Hydromorphone HCl 1 mg 10/15/22 18:46 10/16/22 04:29 Hydromorphone 1 Mg/Ml Inj 1 Ml IVP 1 mg Q2H PRN Administration PAIN Piperacillin Sod/T azobactam 50 mls @ 12.5 mls /hr 10/09/22 10:00 10/16/22 09:20 Sod 3.375 gm/ So dium Chloride IV 12.5 mls/hr Q8H SOFIA Administration Amiodarone HCl 900 mg/ 518 mls @ 0 mls/h r 10/15/22 04:00 10/15/22 22:20 Dextrose/ IV Misce llaneous IV 1 mg/min Supplies .Q0M SOFIA 34.53 mls/hr Administration Protocol Per Protocol Sodium Chloride 1,000 mls @ 50 ml s/hr 10/15/22 16:00 10/16/22 04:28 Sodium Chloride 0.9% IV 50 mls/hr .Q20H SOFIA Administration Propofol 1,000 mg in 100 m ls @ 0 mls/hr 10/15/22 17:30 10/16/22 12:12 Diprivan IV 35 mcg/kg/min .Q0M SOFIA 30.1 mls/hr Administration Protocol Per Protocol Midazolam HCl 100 mg/ Sodium 100 mls @ 0 mls/h r 10/15/22 17:30 10/16/22 08:58 Chloride IV 6 mg/hr .Q0M SOFIA 6 mls/hr Administration Protocol Per Protocol Norepinephrine Bit artrate 4 mg 254 mls @ 0 mls/h r 10/15/22 17:30 10/16/22 08:57 / Dextrose IV 6 mcg/min .Q0M SOFIA 22.86 mls/hr Administration Protocol Per Protocol Fentanyl 2,500 mcg / Sodium 250 mls @ 0 mls/h r 10/16/22 01:15 10/16/22 04:28 Chloride IV 175 mcg/hr .Q0M SOFIA 17.5 mls/hr Titration Protocol Per Protocol Metoprolol Tartrat e 50 mg 10/14/22 09:00 10/15/22 08:29 Metoprolol Tartr ate 25 Mg Tablet PO Not Given BID@0900,2100 SOFIA Ondansetron HCl 4 mg 10/08/22 13:09 10/15/22 08:12 Ondansetron 2 Mg /Ml Sdv 2 Ml IVP 4 mg Q6H PRN Administration NAUSEA AND VOMITI NG Pantoprazole Sodiu m 40 mg 10/11/22 09:00 10/16/22 08:07 Pantoprazole 40 Mg Sdv IVP 40 mg Q12H SOFIA Administration Simethicone 40 mg 10/14/22 00:41 10/14/22 20:30 Simethicone 80 M g Chew PO 40 mg TID PRN Administration HICCUPS Trazodone HCl 300 mg 10/13/22 21:00 10/15/22 20:51 Trazodone 150 Mg Tablet PO Not Given BEDTIME SOFIA Vitals/I&O/Wt Last Vital Signs Temp 99.0 F 10/16/22 07:33 Pulse 122 H 10/16/22 11:30 Resp 19 H 10/16/22 11:25 BP 132/60 10/16/22 11:30 Pulse Ox 94 10/16/22 11:30 O2 Del Method 10/16/22 07:15 O2 Flow Rate 5 10/15/22 12:00 FiO2 65 10/16/22 11:25 10/15/22 10/16/22 10/16/22 22:59 06:59 14:59 Intake Total 1761.863 / 4759.478 8221.733 / 3633.596 214.806 / 214.806 Output Total 185 / 285 1230 / 1515 Balance 1576.863 / 1526.863 591.733 / 2118.596 214.806 / 214.806 Weight last 48 hrs Weight 153.768 kg Weight 143.335 kg Physical Exam Narrative: Intubated sedated on mechanical ventilation HENMT: COMMON NORMALS: normocephalic and atraumatic HEAD & SCALP: normocephalic and atraumatic Resp: COMMON NORMALS: clear to auscultation bilaterally AUSCULTATION: clear to auscultation bilaterally Cardio: COMMON NORMALS: Peripheral pulses 2+ throughout PERIPHERAL PULSES: Peripheral pulses 2+ throughout GI: COMMON NORMALS: Normal to inspection, nondistended, normoactive bowel sounds present, Soft to palpation, non-tender, No hepatosplenomegaly present and no masses AUSCULTATION: Yes normoactive bowel sounds PALPATION: Yes Soft to palpation and Yes No hepatosplenomegaly present RECTAL EXAM: Yes deferred Extremity: COMMON NORMALS: no clubbing, cyanosis or edema and no pedal edema Urinary Catheter Management: Orellana: Cath Placed During This Visit: yes, but has since been removed by the nurse Reason for Continuing Indwelling Catheter: Accurate Measurement of Urinary Output in Critically Ill Patients Urinary Catheter Date of Insertion: 10/15/22 Urinary Catheter Time of Insertion: 13:50 Date Urinary Catheter Removed: 10/10/22 Time Urinary Catheter Discontinued: 17:45 Data 10/16/22 03:10 10/16/22 03:10 Micro: Microbiology 10/15/22 17:55 Gram Stain - Final Sputum - Endotracheal Tube Aspirate 10/11/22 02:10 Blood Culture - Final Blood NO GROWTH AFTER 5 DAYS 10/11/22 02:06 Blood Culture - Final Blood NO GROWTH AFTER 5 DAYS A&P Assessment and plan (1) Status post left hemicolectomy: POD #1, done for adenocarcinoma of splenic flexure identified on routine colon cancer screening recently. (2) Atrial fibrillation with rapid ventricular response: In a patient with known chronic atrial fibrillation, on bisoprolol in combination with HCTZ as only rate controlling medication at home Goals post operatively patient was hyperkalemic which may have been contributing. However patient continues to be in rapid A. fib with RVR and spite of being on Cardizem drip since 08/08/2022 in addition to metoprolol 5 mg IV every 3 hours as scheduled medication. He is unable to be weaned down from 10 mg/h Cardizem. Digoxin 250 mcg was given 10/11 without any significant effect. started amiodarone 10/11 150 mg over 15 minutes followed by titratable drip at 1 mg/h. Metoprolol 5mg ivp q4h Has been on Xarelto for anticoagulation, but held 5 days prior to surgery. Restarted anticoagulation with Lovenox 1 mg/kg every 12 hours with plan to transition to Xarelto at discharge. 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 Has myocardial perfusion study on 10/05/22. Ischemic work-up was negative. Currently troponin series additionally negative. No acute ST-T wave changes to suggest acute coronary syndrome. 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 No current complaints of chest pain though need to try to maintain rate control. Had myocardial perfusion imaging on October 05, 2022 that did not show evidence of ischemia and revealed a normal ejection fraction. (4) Polycythemia: Secondary, has been managed with blood donation periodically. Preoperative hemoglobin same. (5) Obstructive sleep apnea: Not currently using cpap at home due to malfunction of machine. ABG with evidence of hypercapnic hypoxic respiratory failure. Known restrictive lung disease and asbestosis. At baseline uses CPAP at home, unable to utilize BiPAP given abdominal surgery. Currently saturating 93% on supplemental O2, does drop down to 70% on room air. Does not typically use oxygen at home. Continue to use DuoNeb and budesonide scheduled inhalation. No current indication for steroid use. Suspect that patient may have underlying baseline hypoxia and will likely require supplemental O2 at discharge. (6) Hypertension: Chronic diagnosis, usually on bisoprolol-HCTZ and lisinopril. Both held prior to surgery. Currently with low normal blood pressures in setting of recent medications and post-operative state. (7) Dyslipidemia: Chronically on statin therapy. (8) Asthma: Does not appear acutely exacerbated at present. Chronically on budesonide- fomoterol HFA. 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 (11) COVID-19: Had COVID in early 08/2022 and was hospitalized in [place] briefly needing oxygen. (12) Goiter: Last TSH recorded in our system is from 09/2020, low normal. (13) Gout: Chronically on allopurinol (14) Fever: Likely 2/2 coronavirus infection (NOT COVID) (15) Hyperkalemia: Now resolved (16) Hypernatremia: Was on D5 half NS: Has been discontinued: As patient is becoming hyponatremic. (17) TALON (acute kidney injury): Attestations Medical Necessity Statement*: Per primary. Time Spent in Patient Care: Greater than 35 minutes (>than 50% of time spent in counselling and/or direct pt care on unit) . Critical Care Time: The high probability of a clinically significant, sudden or life threatening deterioration of the patient's [] system(s) required my full and direct attention, intervention and personal management. The critical care time is as shown. This time is in addition to time spent performing any reported procedures but includes the following: [x] Data and vital sign review and interpretation [x] Patient assessment, examination and intervention [x] Documentation [x] Medication orders and management Critical Care Time (min): 90 Coding Level of Care Code Acute Code for Chg Fwd Diagnoses Status post left hemicolectomy Z90.49 Atrial fibrillation with rapid ventricular response I48.91 Myocardial bridge Q24.5 Polycythemia D75.1 Obstructive sleep apnea G47.33 Hypertension I10 Dyslipidemia E78.5 Asthma J45.30 Asthma severity: mild Asthma persistence: persistent Asthma complication type: uncomplicated Restrictive lung disease due to kyphoscoliosis J98.4; M41.9 Degenerative joint disease (DJD) of lumbar spine M47.816 COVID-19 U07.1 Goiter E04.9 Gout M10.9 Fever R50.9 Hyperkalemia E87.5 Hypernatremia E87.0 TALON (acute kidney injury) N17.9
--- NOTE | 2022-10-16 13:01 | XR_ITS ---
WS: [id number] Portable AP spine chest, 10/16/2022, 1314 hours Clinical Data: ET tube advanced Comparison: Portable chest, 10/16/2022, 1208 hours Findings: The distal endotracheal tube definitely ends at the level of the clavicles. The remainder of the chest shows no change. XR/XR chest 1V portable [id number] Impression: Endotracheal tube definitely ends at level of clavicles.
--- NOTE | 2022-10-16 18:41 | PM.PN ---
Subjective Subjective: Patient seen and examined. He remains intubated in the ICU Vitals/I&O/Wt Last Vital Signs Temp 99.0 F 10/16/22 07:33 Pulse 101 H 10/16/22 18:30 Resp 19 H 10/16/22 17:46 BP 136/76 10/16/22 18:30 Pulse Ox 95 10/16/22 18:30 O2 Del Method 10/16/22 13:10 O2 Flow Rate 5 10/15/22 12:00 FiO2 65 10/16/22 17:46 10/16/22 10/16/22 10/16/22 06:59 14:59 22:59 Intake Total 1821.733 / 3633.596 992.829 / 992.829 415.541 / 1408.370 Output Total 1230 / 1515 900 / 900 Balance 591.733 / 2118.596 992.829 / 992.829 -484.459 / 508.370 Weight last 48 hrs Weight 339 lb Weight 316 lb Physical Exam Narrative: GEN: Intubated/sedated Abdomen soft, nondistended, no guarding Incision intact without erythema or exudate wound VAC without leak Ostomy congested without output yet Urinary Catheter Management: Orellana: Cath Placed During This Visit: yes, but has since been removed by the nurse Reason for Continuing Indwelling Catheter: Accurate Measurement of Urinary Output in Critically Ill Patients Urinary Catheter Date of Insertion: 10/15/22 Urinary Catheter Time of Insertion: 13:50 Date Urinary Catheter Removed: 10/10/22 Time Urinary Catheter Discontinued: 17:45 Data 10/16/22 03:10 10/16/22 03:10 Micro: Microbiology 10/15/22 17:55 Gram Stain - Final Sputum - Endotracheal Tube Aspirate Sputum Culture - Preliminary 10/11/22 02:10 Blood Culture - Final Blood NO GROWTH AFTER 5 DAYS 10/11/22 02:06 Blood Culture - Final Blood NO GROWTH AFTER 5 DAYS A&P Assessment and plan (1) Colon cancer: (2) Status post left hemicolectomy: (3) Hyperkalemia: (4) Atrial fibrillation with RVR: Plan Postoperative day #8 status post left hemicolectomy for colon cancer at the splenic flexure Postoperative day #1 status post resection of colonic anastomosis and end ileostomy formation IV fluids NPO Medical management per medicine-appreciate input Attestations Medical Necessity Statement*: Patient requires multiple more nights in the hospital for intensive care and return function following colostomy formation Coding Level of Care Code Acute Code for Chg Fwd Diagnoses Colon cancer C18.9 Status post left hemicolectomy Z90.49 Hyperkalemia E87.5 Atrial fibrillation with RVR I48.91
[2022-10-16 19:00] LABS: Blood Urea Nitrogen 41 mg/dL (8-23); Carbon Dioxide 23 mmol/L (22-29); Chloride 100 mmol/L (98-107); Glucose 189 mg/dL (65-115); Osmolality Calculated 297 mOsm/kg (285-295); Sodium 136 mmol/L (136-145)
--- NOTE | 2022-10-16 19:01 | PC.NURSE ---
Uneventful shift, HR WNL after propofol at adequate amount, BP stable on levophed, ET tube advanced per RT
[2022-10-17] VITALS (58 sets, daily range): BP systolic 70–142; BP diastolic 45–76; PULSE 85–140; RESP 18–22; TEMP 36.8–38.1; O2SAT 92–97; BMI 44.8
[2022-10-17] MEDS: sodium chloride 0.9% 1,000 ML 50 ML IV ×2 (00:02→19:22)
[2022-10-17] MEDS: piperacillin-tazobactam 3.375 GM in sodium chloride 0.9% (plus) 50 ML IV ×3 (01:43→17:34)
[2022-10-17] MEDS: propofol 1,000 MG/100 ML INJ 30.1 MG IV ×4 (02:40→18:48)
[2022-10-17 03:28] LABS: Basophils # 0.1 10^3/uL (0.0-0.1); Basophils % 0.3 %; Eosinophils # 0.1 10^3/uL (0.0-0.8); Eosinophils % 0.8 %; Hematocrit 36.6 % (42.0-52.0); Hemoglobin 11.4 g/dL (11.7-16.6); Lymphocytes # 0.8 10^3/uL (0.8-4.8); Lymphocytes % 4.5 %; Mean Corpuscular HGB Conc 31.1 g/dL (30.0-36.0); Mean Corpuscular Volume 99.5 fl (80-94); Mean Platelet Volume 10.2 fL (7.4-10.4); Monocytes # 1.7 10^3/uL (0.2-0.9); Monocytes % 9.8 %; Neutrophils % 82.5 %; Nucleated Red Blood Cells % 0 %; Platelet Count 316 10^3/cmm (130-400); Red Blood Count 3.68 10^6/uL (4.1-5.3); Red Cell Distribution Width 16.5 % (12.1-15.1); White Blood Count 17.4 10^3/uL (4.0-10.0)
[2022-10-17] MEDS: ipratropium-albuterol 3 mL Neb INHALATION ×4 (03:28→20:02)
[2022-10-17 03:58] LABS: Alanine Aminotransferase 21 U/L (0-41); Albumin Level 2.3 g/dL (3.5-5.2); Alkaline Phosphatase 66 U/L (40-130); Anion Gap 16.7 (5-19); Aspartate Amino Transferase 50 U/L (0-40); Blood Urea Nitrogen 39 mg/dL (8-23); Calcium 7.3 mg/dL (8.5-10.5); Carbon Dioxide 22 mmol/L (22-29); Chloride 99 mmol/L (98-107); Globulin 3.2 g/dL (1.3-4.6); Glucose 170 mg/dL (65-115); Magnesium 2.1 mg/dL (1.7-2.3); Osmolality Calculated 291 mOsm/kg (285-295); Potassium 3.7 mmol/L (3.5-5.1); Sodium 134 mmol/L (136-145); Total Bilirubin 0.5 mg/dL (0.15-1.2); Total Protein 5.5 g/dL (6.6-8.7)
[2022-10-17] MEDS: propofol 1,000 MG/100 ML INJ 25.8 MG IV ×3 (05:50→13:08)
[2022-10-17] MEDS: budesonide 0.5 mg/2 mL Neb INHALATION ×2 (08:00→20:02)
[2022-10-17] MEDS: pantoprazole 40 mg SDV IVP (08:51)
[2022-10-17 09:00] LABS: ABG PH Result 7.33 (7.35-7.45); Arterial Blood Gas Hematocrit 34.6 % (42-52); Base Excess ABG -2.3 mmol/L (-2.0-2.0); Blood Gas Allen Test Pos; Blood Gas Sample Type Arterial; Carboxyhemoglobin 1.2 %THgb (0.4-20.1); HCO3 ABG 23.7 mmol/L (22-26); HGB O2 Sat 94.8 % (95-100); Methemoglobin 0.6 % (0.4-1.5); Oxygen Saturation ABG 96.5; PO2 ABG 82.9 mmHg (80.0-100.0); Potassium Level - ABG 3.1 mmol/L (3.5-5.0); Total Hemoglobin 11.3 g/dL (14-18)
[2022-10-17 09:01] LABS: Blood Gas Operator Identificat MONRO; Blood Gas Sample Site Not specified; Fractionated Inspired Oxygen 0.7 %; Oxygen Device VENT
[2022-10-17] MEDS: enoxaparin 40 mg/0.4 mL Syringe SUBCUT (09:17)
--- NOTE | 2022-10-17 10:46 | PC.CHAP ---
Pastoral Care Encounter/Spiritual Assessment Type of Contact [] Declined pumpman visit [] Patient/Family/Request visit [] Outpatient visit [] Follow-up visit [] Physician referral [] Code/Alert [x] Routine visit [] Staff referral [] Actively dying [] Patient sleeping [] Family support [] [] Out of room [] Palliative care [] [] Receiving care in room [] Pre-surgical visit [] Trauma [] Long length of stay [x] ICU visit [x] Other: Relational/Emotional Strength [] Patient feels connected with others/family/visitors/staff [] Distress [] Loneliness/isolation [] Abandonment Spirituality of Patient [x] Person of Maryanne [] Attends Cheondoism of their Maryanne [] Believes in Prayer [] Reads Bible or Advent materials [] There are Spiritual issues to be addressed [employer]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 [x] Prayer [] Active listening [] Non-anxious presence [] Spiritual/emotional support [] Crisis/trauma care [] Spiritual counseling [] Bereavement support [] Provided bereavement packet [] Provided Bible/devotional materials [] Provided toy/stuffed animal, coloring book to patient or family member [] Provided Communion [] Anointing/[place] [] Salvation [] Completed spiritual assessment [] Other: Impact on Illness or Injury [] Angry [] Fearful [] Anxious [] Often cries [] Exhaustion [] Unable to work [] Unable to attend mormonism [] Unable to walk/stand [] Unable to read [] Unable to drive [] Unable to eat/drink [] Unable to sleep [] Unable to be with family [] Patient intubated [] Other: Summary Time spent with patient
--- NOTE | 2022-10-17 12:50 | PC.NURSE ---
Dr. Soares rounded this afternoon, happy with stoma color and appearance. If no output in ostomy bag by this weekend, saturday/Saturday possible administration of TPN.
--- NOTE | 2022-10-17 13:42 | PC.SOCIAL ---
IMM Update pg 2 of IMM not updated as patient is intubated. Copy left @ bedside and Copy in chart dated and initialed.
--- NOTE | 2022-10-17 13:51 | PC.NURSE ---
Fentanyl waste of 9.5mL witnessed by Jessenia QUIROZ.
--- NOTE | 2022-10-17 15:04 | PC.NURSE ---
All pressors off, patient tolerating well. Versed weaned down this morning, patient now more awake and increasing respirations above vent, contacted Dr. Don and agreed to turn versed back up.
--- NOTE | 2022-10-17 15:41 | P.PN_ITS ---
Subjective Subjective: Patient was seen and examined this morning, currently is intubated sedated on mechanical ventilation, A. fib is better controlled, patient had good urine output yesterday, serum creatinine appears to be peaking at 2.2, with the hope that it will start trending down, urine output has also picked up.White blood cell count is stable at 17.4. Hemoglobin has down trended to 11.4 as compared to 13.2 yesterday. AM ABG has been reviewed, his other vitals and labs have been reviewed. Medications: Reviewed: Yes Medication Review Details: Generic Name Dose Route Start Last Admin Trade Name Freq PRN Reason Stop Dose Admin Acetaminophen 650 mg 10/13/22 19:53 10/13/22 20:21 Acetaminophen 32 5 Mg Tablet PO 650 mg Q6H PRN Administration FEVER Albuterol/Ipratrop ium 3 ml 10/09/22 14:00 10/17/22 13:01 Ipratropium-Albu terol 3 Ml Neb INHALATION 3 ml Q6H.RESP SOFIA Administration Atorvastatin Calci um 20 mg 10/13/22 21:00 10/14/22 20:20 Atorvastatin 40 Mg Tablet PO 20 mg BEDTIME SOFIA Administration Budesonide 0.5 mg 10/08/22 20:00 10/17/22 08:00 Budesonide 0.5 M g/2 Ml Neb INHALATION 0.5 mg BID.RESPIRATORY S CH Administration Enoxaparin Sodium 40 mg 10/14/22 10:15 10/17/22 09:17 Enoxaparin 40 Mg /0.4 Ml Syringe SUBCUT 40 mg Q24H SOFIA Administration Folic Acid 1 mg 10/13/22 22:00 10/14/22 22:01 Folic Acid 1 Mg Tablet PO 1 mg DAILY@2200 SOFIA Administration Hydralazine HCl 10 mg 10/11/22 08:39 10/12/22 02:19 Hydralazine 20 M g/Ml Inj 1 Ml IVP 10 mg Q6H PRN Administration SBP >160 Hydromorphone HCl 1 mg 10/15/22 18:46 10/16/22 04:29 Hydromorphone 1 Mg/Ml Inj 1 Ml IVP 1 mg Q2H PRN Administration PAIN Piperacillin Sod/T azobactam 50 mls @ 12.5 mls /hr 10/09/22 10:00 10/17/22 13:46 Sod 3.375 gm/ So dium Chloride IV Infused Q8H SOFIA Infusion Sodium Chloride 1,000 mls @ 50 ml s/hr 10/15/22 16:00 10/17/22 00:02 Sodium Chloride 0.9% IV 50 mls/hr .Q20H SOFIA Administration Propofol 1,000 mg in 100 m ls @ 0 mls/hr 10/15/22 17:30 10/17/22 14:19 Diprivan IV 35 mcg/kg/min .Q0M SOFIA 30.1 mls/hr Titration Protocol Per Protocol Midazolam HCl 100 mg/ Sodium 100 mls @ 0 mls/h r 10/15/22 17:30 10/17/22 15:04 Chloride IV 4 mg/hr .Q0M SOFIA 4 mls/hr Titration Protocol Per Protocol Norepinephrine Bit artrate 4 mg 254 mls @ 0 mls/h r 10/15/22 17:30 10/17/22 14:20 / Dextrose IV 0 mcg/min .Q0M SOFIA 0 mls/hr Titration Protocol Per Protocol Fentanyl 2,500 mcg / Sodium 250 mls @ 0 mls/h r 10/16/22 01:15 10/17/22 13:51 Chloride IV 125 mcg/hr .Q0M SOFIA 12.5 mls/hr Administration Protocol Per Protocol Metoprolol Tartrat e 50 mg 10/14/22 09:00 10/15/22 08:29 Metoprolol Tartr ate 25 Mg Tablet PO Not Given BID@0900,2100 SOFIA Ondansetron HCl 4 mg 10/08/22 13:09 10/15/22 08:12 Ondansetron 2 Mg /Ml Sdv 2 Ml IVP 4 mg Q6H PRN Administration NAUSEA AND VOMITI NG Simethicone 40 mg 10/14/22 00:41 10/14/22 20:30 Simethicone 80 M g Chew PO 40 mg TID PRN Administration HICCUPS Trazodone HCl 300 mg 10/13/22 21:00 10/16/22 20:29 Trazodone 150 Mg Tablet PO Not Given BEDTIME SOFIA Vitals/I&O/Wt Last Vital Signs Temp 98.2 F 10/17/22 04:58 Pulse 138 H 10/17/22 14:00 Resp 20 H 10/17/22 13:06 BP 128/61 10/17/22 14:00 Pulse Ox 93 10/17/22 14:00 O2 Del Method 10/17/22 13:01 O2 Flow Rate 5 10/15/22 12:00 FiO2 60 10/17/22 14:00 10/17/22 10/17/22 10/17/22 06:59 14:59 22:59 Intake Total 1863.436 / 3580.685 1219.544 / 1219.544 1.3 / 1220.844 Output Total 965 / 2530 Balance 898.436 / 9280.604 9105.544 / 1219.544 1.3 / 1220.844 Weight last 48 hrs Weight 166.967 kg Weight 153.768 kg Physical Exam Narrative: Intubated sedated on mechanical ventilation Const: COMMON NORMALS: patient oriented x3 HENMT: COMMON NORMALS: normocephalic and atraumatic HEAD & SCALP: normocephalic and atraumatic Resp: COMMON NORMALS: clear to auscultation bilaterally AUSCULTATION: clear to auscultation bilaterally Cardio: COMMON NORMALS: Peripheral pulses 2+ throughout PERIPHERAL PULSES: Peripheral pulses 2+ throughout GI: COMMON NORMALS: Normal to inspection, nondistended, normoactive bowel sounds present, Soft to palpation, non-tender, No hepatosplenomegaly present and no masses AUSCULTATION: Yes normoactive bowel sounds PALPATION: Yes Soft to palpation and Yes No hepatosplenomegaly present RECTAL EXAM: Yes deferred Extremity: COMMON NORMALS: no clubbing, cyanosis or edema and no pedal edema Neuro: COMMON NORMALS: patient oriented x3 Urinary Catheter Management: Orellana: Cath Placed During This Visit: yes, but has since been removed by the nurse Reason for Continuing Indwelling Catheter: Accurate Measurement of Urinary Output in Critically Ill Patients Urinary Catheter Date of Insertion: 10/15/22 Urinary Catheter Time of Insertion: 13:50 Date Urinary Catheter Removed: 10/10/22 Time Urinary Catheter Discontinued: 17:45 Data 10/17/22 02:37 10/17/22 02:37 Micro: Microbiology 10/15/22 17:55 Gram Stain - Final Sputum - Endotracheal Tube Aspirate Sputum Culture - Final A&P Assessment and plan (1) Status post left hemicolectomy: POD #1, done for adenocarcinoma of splenic flexure identified on routine colon cancer screening recently. Patient started complaining of severe abdominal pain on 10/15. CT abdomen and pelvis with contrast showed:Large amount of free air within the abdomen and pelvis: surgery is of the opinion:?That there is anastomotic leak with moderate to large dehiscence at the anastomosis. status post resection of colonic anastomosis and end ileostomy formation (2) Atrial fibrillation with rapid ventricular response: In a patient with known chronic atrial fibrillation, on bisoprolol in combination with HCTZ as only rate controlling medication at home Goals post operatively patient was hyperkalemic which may have been contributing. However patient continues to be in rapid A. fib with RVR and spite of being on Cardizem drip since 08/08/2022 in addition to metoprolol 5 mg IV every 3 hours as scheduled medication. He is unable to be weaned down from 10 mg/h Cardizem. Digoxin 250 mcg was given 10/11 without any significant effect. started amiodarone 10/11 150 mg over 15 minutes followed by titratable drip at 1 mg/h. Metoprolol 5mg ivp q4h Has been on Xarelto for anticoagulation, but held 5 days prior to surgery. Restarted anticoagulation with Lovenox 1 mg/kg every 12 hours with plan to transition to Xarelto at discharge. 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 Has myocardial perfusion study on 10/05/22. Ischemic work-up was negative. Currently troponin series additionally negative. No acute ST-T wave changes to suggest acute coronary syndrome. 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 No current complaints of chest pain though need to try to maintain rate control. Had myocardial perfusion imaging on October 05, 2022 that did not show evidence of ischemia and revealed a normal ejection fraction. (4) Polycythemia: Secondary, has been managed with blood donation periodically. Preoperative hemoglobin same. (5) Obstructive sleep apnea: Not currently using cpap at home due to malfunction of machine. ABG with evidence of hypercapnic hypoxic respiratory failure. Known restrictive lung disease and asbestosis. At baseline uses CPAP at home, unable to utilize BiPAP given abdominal surgery. Currently saturating 93% on supplemental O2, does drop down to 70% on room air. Does not typically use oxygen at home. Continue to use DuoNeb and budesonide scheduled inhalation. No current indication for steroid use. Suspect that patient may have underlying baseline hypoxia and will likely require supplemental O2 at discharge. (6) Hypertension: Chronic diagnosis, usually on bisoprolol-HCTZ and lisinopril. Both held prior to surgery. Currently with low normal blood pressures in setting of recent medications and post-operative state. (7) Dyslipidemia: Chronically on statin therapy. (8) Asthma: Does not appear acutely exacerbated at present. Chronically on budesonide- fomoterol HFA. 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 (11) COVID-19: Had COVID in early 08/2022 and was hospitalized in [place] briefly needing oxygen. (12) Goiter: Last TSH recorded in our system is from 09/2020, low normal. (13) Gout: Chronically on allopurinol (14) Fever: Likely 2/2 coronavirus infection (NOT COVID) (15) Hyperkalemia: Now resolved (16) Hypernatremia: Was on D5 half NS: Has been discontinued: As patient is becoming hyponatremic. (17) TALON (acute kidney injury): Attestations Medical Necessity Statement*: Per primary Critical Care Time: The high probability of a clinically significant, sudden or life threatening deterioration of the patient's [] system(s) required my full and direct attention, intervention and personal management. The critical care time is as shown. This time is in addition to time spent performing any reported procedures but includes the following: [x] Data and vital sign review and interpretation [x] Patient assessment, examination and intervention [x] Documentation [x] Medication orders and management Critical Care Time (min): 40 Coding Level of Care Code Acute Code for Chg Fwd Diagnoses Status post left hemicolectomy Z90.49 Atrial fibrillation with rapid ventricular response I48.91 Myocardial bridge Q24.5 Polycythemia D75.1 Obstructive sleep apnea G47.33 Hypertension I10 Dyslipidemia E78.5 Asthma J45.30 Asthma severity: mild Asthma persistence: persistent Asthma complication type: uncomplicated Restrictive lung disease due to kyphoscoliosis J98.4; M41.9 Degenerative joint disease (DJD) of lumbar spine M47.816 COVID-19 U07.1 Goiter E04.9 Gout M10.9 Fever R50.9 Hyperkalemia E87.5 Hypernatremia E87.0 TALON (acute kidney injury) N17.9
[2022-10-17] MEDS: HYDROmorphone 1 mg/mL INJ 1 mL IVP (17:07)
--- NOTE | 2022-10-17 17:27 | PM.PN ---
Subjective Subjective: Patient seen and examined. He remains intubated in the ICU. Levophed is being weaned off Vitals/I&O/Wt Last Vital Signs Temp 98.2 F 10/17/22 04:58 Pulse 135 H 10/17/22 16:00 Resp 22 H 10/17/22 16:16 BP 116/59 10/17/22 16:00 Pulse Ox 96 10/17/22 16:16 O2 Del Method 10/17/22 13:01 O2 Flow Rate 5 10/15/22 12:00 FiO2 60 10/17/22 16:16 10/17/22 10/17/22 10/17/22 06:59 14:59 22:59 Intake Total 1863.436 / 3580.685 1219.544 / 1219.544 66.266 / 1285.810 Output Total 965 / 2530 Balance 898.436 / 3303.451 1799.544 / 1219.544 66.266 / 1285.810 Weight last 48 hrs Weight 368 lb 1.6 oz Weight 339 lb Physical Exam Narrative: GEN: Intubated/sedated Abdomen soft, nondistended, no guarding Incision intact without erythema or exudate wound VAC without leak Ostomy congested without output yet Urinary Catheter Management: Orellana: Cath Placed During This Visit: yes, but has since been removed by the nurse Reason for Continuing Indwelling Catheter: Accurate Measurement of Urinary Output in Critically Ill Patients Urinary Catheter Date of Insertion: 10/15/22 Urinary Catheter Time of Insertion: 13:50 Date Urinary Catheter Removed: 10/10/22 Time Urinary Catheter Discontinued: 17:45 Data 10/17/22 02:37 10/17/22 02:37 Micro: Microbiology 10/15/22 17:55 Gram Stain - Final Sputum - Endotracheal Tube Aspirate Sputum Culture - Final A&P Assessment and plan (1) Colon cancer: (2) Status post left hemicolectomy: (3) Hyperkalemia: (4) Atrial fibrillation with RVR: Plan Postoperative day #9 status post left hemicolectomy for colon cancer at the splenic flexure Postoperative day #2 status post resection of colonic anastomosis and end ileostomy formation IV fluids NPO Wound VAC change tomorrow Medical management per medicine-appreciate input Attestations Medical Necessity Statement*: Patient requires multiple midnights in the hospital for intensive care and return of bowel function following exploratory laparotomy Coding Level of Care Code Acute Code for Chg Fwd Diagnoses Colon cancer C18.9 Status post left hemicolectomy Z90.49 Hyperkalemia E87.5 Atrial fibrillation with RVR I48.91
[2022-10-17] MEDS: trazodone 150 mg Tablet 300 MG PO (21:27)
[2022-10-18] VITALS (41 sets, daily range): BP systolic 92–129; BP diastolic 49–78; PULSE 98–124; RESP 16–21; TEMP 37.4–37.7; O2SAT 93–100
--- NOTE | 2022-10-18 00:02 | PC.NURSE ---
Patient's Art line MAP was soft upon start of shift. Cuff pressure off leg was adequate. ART line was zeroed and new cuff applied to patient's arm resulting in matching BPs within 5mmg. Patient's MAP remained low and levophed restarted. Propofol was titrated off and levo adjusted to correct MAP. Vaso started at low dose and patient's map continued to rise slowly for the next few hours, possibly as propofol continued to clear. Will continue to adjust vasopressors down as MAP corrects.
[2022-10-18] MEDS: piperacillin-tazobactam 3.375 GM in sodium chloride 0.9% (plus) 50 ML IV (01:42)
[2022-10-18] MEDS: ipratropium-albuterol 3 mL Neb INHALATION ×4 (02:53→20:33)
[2022-10-18 04:03] LABS: Basophils # 0.1 10^3/uL (0.0-0.1); Basophils % 0.4 %; Eosinophils # 0.4 10^3/uL (0.0-0.8); Eosinophils % 1.8 %; Hematocrit 33.1 % (42.0-52.0); Hemoglobin 10.5 g/dL (11.7-16.6); Mean Corpuscular HGB Conc 31.7 g/dL (30.0-36.0); Mean Corpuscular Hemoglobin 31.4 pg (28.0-34.0); Mean Corpuscular Volume 99.1 fl (80-94); Mean Platelet Volume 10.3 fL (7.4-10.4); Monocytes # 1.7 10^3/uL (0.2-0.9); Monocytes % 7.2 %; Nucleated Red Blood Cells % 0 %; Platelet Count 310 10^3/cmm (130-400); Red Blood Count 3.34 10^6/uL (4.1-5.3); Red Cell Distribution Width 16.5 % (12.1-15.1)
[2022-10-18 04:24] LABS: Alanine Aminotransferase 34 U/L (0-41); Albumin Level 2.3 g/dL (3.5-5.2); Alkaline Phosphatase 51 U/L (40-130); Aspartate Amino Transferase 92 U/L (0-40); Blood Urea Nitrogen 42 mg/dL (8-23); Calcium 7.2 mg/dL (8.5-10.5); Carbon Dioxide 22 mmol/L (22-29); Chloride 101 mmol/L (98-107); Glomerular Filtration Rate 25.9 mL/min (90-130); Glucose 150 mg/dL (65-115); Magnesium 1.8 mg/dL (1.7-2.3); Osmolality Calculated 289 mOsm/kg (285-295); Sodium 133 mmol/L (136-145); Total Bilirubin 0.7 mg/dL (0.15-1.2); Total Protein 5.3 g/dL (6.6-8.7)
[2022-10-18 05:04] LABS: ABG PCO2 47.7 mmHg (35-45); Arterial Blood Gas Hematocrit 26.9 % (42-52); Base Excess ABG -2.9 mmol/L (-2.0-2.0); Blood Gas Operator Identificat JB; Blood Gas Sample Site Not specified; Blood Gas Sample Type Arterial; Carboxyhemoglobin 1.1 %THgb (0.4-20.1); HCO3 ABG 23.5 mmol/L (22-26); HGB O2 Sat 95.9 % (95-100); Ionized Calcium Level - ABG 1.1 mmol/L (1.1-1.4); Methemoglobin 0.9 % (0.4-1.5); Oxygen Device VENT; Oxygen Saturation ABG 97.9; PO2 ABG 93.7 mmHg (80.0-100.0); Potassium Level - ABG 3.7 mmol/L (3.5-5.0); Total Hemoglobin 8.8 g/dL (14-18)
[2022-10-18] MEDS: budesonide 0.5 mg/2 mL Neb INHALATION ×2 (07:54→20:34)
[2022-10-18] MEDS: pantoprazole 40 mg SDV IVP (09:07)
[2022-10-18] MEDS: meropenem 1,000 MG in sodium chloride 0.9% (plus) 50 ML 100 MG IV ×2 (09:30→21:22)
--- NOTE | 2022-10-18 09:41 | CT_ITS ---
WS: [id number] CT ABDOMEN AND PELVIS NONCONTRAST HISTORY: pressor requirement TECHNIQUE: Imaging performed through the abdomen and pelvis. Coronal and sagittal reformats are submi tted. All CT scans at [facility] use at least one of these dose optimization techniques: auto mated exposure control; mA and/or kV adjustment per patient size (includes targeted exams where dose is matched to clinical indication); or iterative reconstruction. DLP: 1450.83 mGy.cm COMPARISON: 10/15/2022 Lower thorax: New bilateral lower lobe consolidations. Progressed since the prior study probably atel ectasis. There are air bronchograms. There are a few more nodular consolidations at the RIGHT lung ba se which may be developing pneumonia. Heart size is enlarged. Nasogastric tube is present with tip te rminating in the stomach. There is significant artifact through the abdomen and pelvis secondary to patient's hardware in the s pine and also body habitus and arms at the sides. Liver: Limited but negative. Gallbladder: Mildly hydropic due to prolonged fasting state. Pancreas: Normal size and attenuation. Normal pancreatic duct. No pancreatitis or mass. Spleen: Significant artifact. Not well visualized. Adrenal glands: Normal. No mass. Right kidney: Nonobstructing lower pole calculi. Left kidney: Negative. Aorta: Minimal atherosclerosis. Previously described free air has been significantly reduced since the prior study. No definite remai orly intraperitoneal free air. Multiple surgical drains within the abdomen. Mesenteric edema and a sm all amount of fluid in the deep mesentery. Overall improved since the prior study. Patient now has a RIGHT lower quadrant ostomy site. There is no leakage of contrast external to the GI tract. There is contrast in the rectum which may be secondary to the rectal contrast given on 10/15/2022. No edema add itional rectal contrast was given today. Abdominal wall: Postsurgical changes along the anterior abdominal wall. New RIGHT lower quadrant osto my site. Pelvis: Nondistended urinary bladder. There is a Orellana catheter present. No free fluid in the pelvis. There is a small amount of air in the RIGHT inguinal canal. This could be secondary to recent attemp t for a blood draw or placement of the femoral line. Patient also has a RIGHT femoral line. Osseous structures: Extensive postoperative changes and degenerative spondylitic changes in the visua lized lumbar and thoracic spines. CT/CT abdomen pelvis wo con [id number] IMPRESSION: 1. No residual free air is identified. 2. Small amount of fluid in the central mesentery and mesenteric edema. Overal l the amount of fluid has improved since the exam of 10/15/2022. 3. Interval placement of a RIGHT lower quadrant ostomy. 4. No extraluminal extravasation of contrast identified. 5. Increasing atelectatic changes at the lung bases. Possible developing pneum onia at the RIGHT lung base.
[2022-10-18] MEDS: sodium chloride 0.9% 500 ML 999 ML IV (09:46)
[2022-10-18] MEDS: iohexol 350 mg/mL 500 mL Btl (per mL) PO (10:04)
[2022-10-18] MEDS: sodium chloride 0.9% 500 ML IV (10:24)
[2022-10-18] MEDS: sodium chloride 0.9% 1,000 ML 50 ML IV ×2 (11:37→22:34)
[2022-10-18] MEDS: enoxaparin 40 mg/0.4 mL Syringe SUBCUT (11:40)
[2022-10-18] MEDS: vancomycin 1,500 MG/300 ML PIGGYBACK 200 MG IV (11:41)
[2022-10-18] MEDS: HYDROmorphone 1 mg/mL INJ 1 mL IVP (11:46)
[2022-10-18] MEDS: norepinephrine 8 MG in dextrose 5 % 500 ML 60.96 MG IV (13:30)
--- NOTE | 2022-10-18 14:32 | P.PN_ITS ---
Subjective Subjective: Patient seen and examined. Overnight his pressors requirement went up, currently he is on 2 pressors Levophed as well as vasopressin, White blood cell count also went up, noted T-max was 100.2. Repeat CT abdomen and pelvis was done this morning. Current plan is to give 1 L normal saline bolus broaden antibiotic coverage. AM ABG and CT has been reviewed. Medications: Reviewed: Yes Medication Review Details: Generic Name Dose Route Start Last Admin Trade Name Freq PRN Reason Stop Dose Admin Acetaminophen 650 mg 10/13/22 19:53 10/13/22 20:21 Acetaminophen 32 5 Mg Tablet PO 650 mg Q6H PRN Administration FEVER Albuterol/Ipratrop ium 3 ml 10/09/22 14:00 10/18/22 13:49 Ipratropium-Albu terol 3 Ml Neb INHALATION 3 ml Q6H.RESP SOFIA Administration Atorvastatin Calci um 20 mg 10/13/22 21:00 10/14/22 20:20 Atorvastatin 40 Mg Tablet PO 20 mg BEDTIME SOFIA Administration Budesonide 0.5 mg 10/08/22 20:00 10/18/22 07:54 Budesonide 0.5 M g/2 Ml Neb INHALATION 0.5 mg BID.RESPIRATORY S CH Administration Enoxaparin Sodium 40 mg 10/14/22 10:15 10/18/22 11:40 Enoxaparin 40 Mg /0.4 Ml Syringe SUBCUT 40 mg Q24H SOFIA Administration Folic Acid 1 mg 10/13/22 22:00 10/14/22 22:01 Folic Acid 1 Mg Tablet PO 1 mg DAILY@2200 SOFIA Administration Hydralazine HCl 10 mg 10/11/22 08:39 10/12/22 02:19 Hydralazine 20 M g/Ml Inj 1 Ml IVP 10 mg Q6H PRN Administration SBP >160 Hydromorphone HCl 1 mg 10/15/22 18:46 10/18/22 11:46 Hydromorphone 1 Mg/Ml Inj 1 Ml IVP 1 mg Q2H PRN Administration PAIN Sodium Chloride 1,000 mls @ 75 ml s/hr 10/15/22 16:00 10/18/22 11:37 Sodium Chloride 0.9% IV 50 mls/hr .[id number] SOFIA Administration Propofol 1,000 mg in 100 m ls @ 0 mls/hr 10/15/22 17:30 10/17/22 21:55 Diprivan IV 0 mcg/kg/min .Q0M SOFIA 0 mls/hr Titration Protocol Per Protocol Midazolam HCl 100 mg/ Sodium 100 mls @ 0 mls/h r 10/15/22 17:30 10/17/22 16:40 Chloride IV 4 mg/hr .Q0M SOFIA 4 mls/hr Administration Protocol Per Protocol Norepinephrine Bit artrate 4 mg 254 mls @ 0 mls/h r 10/15/22 17:30 10/18/22 13:19 / Dextrose IV Infused .Q0M SOFIA Titration Protocol Per Protocol Fentanyl 2,500 mcg / Sodium 250 mls @ 0 mls/h r 10/16/22 01:15 10/18/22 05:49 Chloride IV 200 mcg/hr .Q0M SOFIA 20 mls/hr Administration Protocol Per Protocol Amiodarone HCl 900 mg/ 518 mls @ 17.267 mls/hr 10/17/22 15:45 10/18/22 13:20 Dextrose/ IV Misce llaneous IV 0.5 mg/min Supplies CONT SOFIA 17.27 mls/hr Administration 0.5 MG/MIN Vasopressin 100 un it/ Sodium 100 mls @ 0 mls/h r 10/17/22 22:00 10/18/22 04:43 Chloride IV 0.02 unit/min .Q0M SOFIA 1.2 mls/hr Titration Protocol Per Protocol Meropenem 1,000 mg / Sodium 50 mls @ 100 mls/ hr 10/18/22 09:00 10/18/22 11:38 Chloride IV Infused Q12H SOFIA Infusion Vancomycin/PEG/NAD A/Lysine/Water 1,500 mg in 300 m ls @ 200 mls/hr 10/18/22 10:00 10/18/22 13:19 Vancocin IV Infused Q24H SOFIA Infusion Norepinephrine Bit artrate 8 mg 508 mls @ 0 mls/h r 10/18/22 11:45 10/18/22 13:30 / Dextrose IV 16 mcg/min .Q0M SOFIA 60.96 mls/hr Administration Protocol Per Protocol Metoprolol Tartrat e 50 mg 10/14/22 09:00 10/15/22 08:29 Metoprolol Tartr ate 25 Mg Tablet PO Not Given BID@0900,2100 [facility] Ondansetron HCl 4 mg 10/08/22 13:09 10/15/22 08:12 Ondansetron 2 Mg /Ml Sdv 2 Ml IVP 4 mg Q6H PRN Administration NAUSEA AND VOMITI NG Pantoprazole Sodiu m 40 mg 10/18/22 09:00 10/18/22 09:07 Pantoprazole 40 Mg Sdv IVP 40 mg DAILY SOFIA Administration Simethicone 40 mg 10/14/22 00:41 10/14/22 20:30 Simethicone 80 M g Chew PO 40 mg TID PRN Administration HICCUPS Trazodone HCl 300 mg 10/13/22 21:00 10/17/22 21:27 Trazodone 150 Mg Tablet PO 300 mg BEDTIME SOFIA Administration Vitals/I&O/Wt Last Vital Signs Temp 99.4 F 10/18/22 12:05 Pulse 105 H 10/18/22 13:50 Resp 16 10/18/22 13:52 BP 119/63 10/18/22 12:03 Pulse Ox 97 10/18/22 13:52 O2 Del Method 10/18/22 13:50 O2 Flow Rate 5 10/15/22 12:00 FiO2 55 10/18/22 13:52 10/17/22 10/18/22 10/18/22 22:59 06:59 14:59 Intake Total 1378.587 / 2598.131 720.019 / 3318.150 3155.121 / 3155.121 Output Total 1535 / 1535 1135 / 2670 Balance -156.413 / 1063.131 -414.981 / 216.101 9836.121 / 3155.121 Weight last 48 hrs Weight 166.967 kg Physical Exam Narrative: Intubated sedated on mechanical ventilation HENMT: COMMON NORMALS: normocephalic and atraumatic HEAD & SCALP: normocephalic and atraumatic Resp: COMMON NORMALS: clear to auscultation bilaterally AUSCULTATION: clear to auscultation bilaterally Cardio: COMMON NORMALS: Peripheral pulses 2+ throughout PERIPHERAL PULSES: Peripheral pulses 2+ throughout GI: AUSCULTATION: Yes normoactive bowel sounds RECTAL EXAM: Yes deferred OTHER: Soft nondistended, incision site clean, MISTI drain in place, ostomy site clean. Extremity: COMMON NORMALS: no clubbing, cyanosis or edema and no pedal edema Urinary Catheter Management: Orellana: Cath Placed During This Visit: yes, but has since been removed by the nurse Reason for Continuing Indwelling Catheter: Accurate Measurement of Urinary Output in Critically Ill Patients Urinary Catheter Date of Insertion: 10/15/22 Urinary Catheter Time of Insertion: 13:50 Date Urinary Catheter Removed: 10/10/22 Time Urinary Catheter Discontinued: 17:45 Data 10/18/22 03:24 10/18/22 03:24 Micro: Microbiology 10/15/22 17:55 Gram Stain - Final Sputum - Endotracheal Tube Aspirate Sputum Culture - Final A&P Assessment and plan (1) Status post left hemicolectomy: POD #1, done for adenocarcinoma of splenic flexure identified on routine colon cancer screening recently. Patient started complaining of severe abdominal pain on 10/15. CT abdomen and pelvis with contrast showed:Large amount of free air within the abdomen and pelvis: surgery is of the opinion:?That there is anastomotic leak with moderate to large dehiscence at the anastomosis. Repeat CT abdomen and pelvis on: 10/18: No residual free air is identified. Small amount of fluid in the central mesentery and mesenteric edema. Overall the amount of fluid has improved since the exam of 10/15/2022. status post resection of colonic anastomosis and end ileostomy formation (2) Atrial fibrillation with rapid ventricular response: In a patient with known chronic atrial fibrillation, on bisoprolol in combination with HCTZ as only rate controlling medication at home Goals post operatively patient was hyperkalemic which may have been contributing. However patient continues to be in rapid A. fib with RVR and spite of being on Cardizem drip since 08/08/2022 in addition to metoprolol 5 mg IV every 3 hours as scheduled medication. He is unable to be weaned down from 10 mg/h Cardizem. Digoxin 250 mcg was given 10/11 without any significant effect. started amiodarone 10/11 150 mg over 15 minutes followed by titratable drip at 1 mg/h. Metoprolol 5mg ivp q4h Has been on Xarelto for anticoagulation, but held 5 days prior to surgery. Restarted anticoagulation with Lovenox 1 mg/kg every 12 hours with plan to transition to Xarelto at discharge. 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 Has myocardial perfusion study on 10/05/22. Ischemic work-up was negative. Currently troponin series additionally negative. No acute ST-T wave changes to suggest acute coronary syndrome. 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 No current complaints of chest pain though need to try to maintain rate control. Had myocardial perfusion imaging on October 05, 2022 that did not show evidence of ischemia and revealed a normal ejection fraction. (4) Polycythemia: Secondary, has been managed with blood donation periodically. Preoperative hemoglobin same. (5) Obstructive sleep apnea: Not currently using cpap at home due to malfunction of machine. ABG with evidence of hypercapnic hypoxic respiratory failure. Known restrictive lung disease and asbestosis. At baseline uses CPAP at home, unable to utilize BiPAP given abdominal surgery. Currently saturating 93% on supplemental O2, does drop down to 70% on room air. Does not typically use oxygen at home. Continue to use DuoNeb and budesonide scheduled inhalation. No current codey cation for steroid use. Suspect that patient may have underlying baseline hypoxia and will likely re quire supplemental O2 at discharge. (6) Hypertension: Chronic diagnosis, usually on bisoprolol-HCTZ and lisinopril. Both held prior to surgery. Currently with low normal blood pressures in setting of recent medications and post-operative state. (7) Dyslipidemia: Chronically on statin therapy. (8) Asthma: Does not appear acutely exacerbated at present. Chronically on budesonide- fomoterol HFA. 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 (11) COVID-19: Had COVID in early 08/2022 and was hospitalized in [place] briefly needing oxy gen. (12) Goiter: Last TSH recorded in our system is from 09/2020, low normal. (13) Gout: Chronically on allopurinol (14) Fever: Likely 2/2 coronavirus infection (NOT COVID) (15) Hyperkalemia: Now resolved (16) Hypernatremia: Was on D5 half NS: Has been discontinued: As patient is becoming hyponatremic. (17) TALON (acute kidney injury): (18) Septic shock: Patient met sepsis criteria: Has elevated white cell count, endorgan dysfunction in the presence of TALON, fever, likely intra-abdominal infection as a source, with possible pneumonia. Follow blood culture Urine culture Lactic acid Procalcitonin Initially patient was empirically on Zosyn. Antibiotic coverage has been broadened to vancomycin and meropenem. Attestations Medical Necessity Statement*: Patient is in hospital for management of septic shock. Coding Level of Care Code Acute Code for Chg Fwd Diagnoses Status post left hemicolectomy Z90.49 Atrial fibrillation with rapid ventricular response I48.91 Myocardial bridge Q24.5 Polycythemia D75.1 Obstructive sleep apnea G47.33 Hypertension I10 Dyslipidemia E78.5 Asthma J45.30 Asthma severity: mild Asthma persistence: persistent Asthma complication type: uncomplicated Restrictive lung disease due to kyphoscoliosis J98.4; M41.9 Degenerative joint disease (DJD) of lumbar spine M47.816 COVID-19 U07.1 Goiter E04.9 Gout M10.9 Fever R50.9 Hyperkalemia E87.5 Hypernatremia E87.0 TALON (acute kidney injury) N17.9 Septic shock A41.9; R65.21
--- NOTE | 2022-10-18 15:35 | PC.NUTR ---
If medically appropriate, recommend consideration of TPN starting @ 13 mls/hr and increasing until goal rate of 83 mls/hr is reached, with 25 grams/125 mls fat emulsion, standard electrolytes and MV 10 mls/day. Details in RD assessment.
--- NOTE | 2022-10-18 16:04 | PM.PN ---
Subjective Subjective: Patient remains intubated and sedated. He had a temperature of 100.6 overnight. Still tachycardic at times. Vasopressor requirements have gone up. Vitals/I&O/Wt Last Vital Signs Temp 99.4 F 10/18/22 12:05 Pulse 117 H 10/18/22 14:53 Resp 16 10/18/22 13:52 BP 119/59 10/18/22 14:53 Pulse Ox 97 10/18/22 14:53 O2 Del Method 10/18/22 13:50 O2 Flow Rate 5 10/15/22 12:00 FiO2 55 10/18/22 13:52 10/18/22 10/18/22 10/18/22 06:59 14:59 22:59 Intake Total 720.019 / 3318.150 3155.121 / 3155.121 Output Total 1135 / 2670 90 / 90 850 / 940 Balance -414.981 / 864.786 1197.121 / 3065.121 -850 / 2215.121 Weight last 48 hrs Weight 368 lb 1.6 oz Physical Exam Narrative: GEN: Intubated/sedated Abdomen soft, nondistended, no guarding Incision intact without erythema or exudate wound VAC without leak Ostomy viable and producing Urinary Catheter Management: Orellana: Cath Placed During This Visit: yes, but has since been removed by the nurse Reason for Continuing Indwelling Catheter: Accurate Measurement of Urinary Output in Critically Ill Patients Urinary Catheter Date of Insertion: 10/15/22 Urinary Catheter Time of Insertion: 13:50 Date Urinary Catheter Removed: 10/10/22 Time Urinary Catheter Discontinued: 17:45 Data 10/18/22 03:24 10/18/22 03:24 Micro: Microbiology 10/15/22 17:55 Gram Stain - Final Sputum - Endotracheal Tube Aspirate Sputum Culture - Final A&P Assessment and plan (1) Colon cancer: (2) Status post left hemicolectomy: (3) Hyperkalemia: (4) Atrial fibrillation with RVR: Plan Postoperative day #10 status post left hemicolectomy for colon cancer at the splenic flexure Postoperative day #3 status post resection of colonic anastomosis and end ileostomy formation IV fluids NPO-likely start tube feeds tomorrow Wound VAC changed today CT shows overall improvement. Nothing concerning intra-abdominallyon abdominal CT Medical management per medicine-appreciate input Attestations Medical Necessity Statement*: Patient requires multiple midnights in the hospital for intensive care and return of bowel function following exploratory laparotomy Coding Level of Care Code Acute Code for Chg Fwd Diagnoses Colon cancer C18.9 Status post left hemicolectomy Z90.49 Hyperkalemia E87.5 Atrial fibrillation with RVR I48.91
[2022-10-18] MEDS: trazodone 150 mg Tablet 300 MG PO (21:21)
--- NOTE | 2022-10-18 22:30 | PC.NURSE ---
Addendum entered by Juliette Rm RN 10/18/22 22:31: witnessed waste of 40ml propofol. Original Note: Wasted 40ml of Propofol with Juliette QUIROZ.
[2022-10-19] VITALS (45 sets, daily range): BP systolic 90–123; BP diastolic 40–68; PULSE 91–108; RESP 16–25; TEMP 37.1–37.4; O2SAT 92–100; BMI 42.5
[2022-10-19] MEDS: chlorhexidine gluconate 4% Btl 118 mL 1 APPLIC TOPICAL ×2 (01:20→08:42)
[2022-10-19] MEDS: ipratropium-albuterol 3 mL Neb INHALATION ×4 (02:23→19:55)
[2022-10-19 03:19] LABS: Basophils # 0.1 10^3/uL (0.0-0.1); Basophils % 0.5 %; Eosinophils # 0.6 10^3/uL (0.0-0.8); Eosinophils % 2.4 %; Hemoglobin 9.8 g/dL (11.7-16.6); Lymphocytes # 0.9 10^3/uL (0.8-4.8); Mean Corpuscular HGB Conc 30.6 g/dL (30.0-36.0); Mean Corpuscular Hemoglobin 31.2 pg (28.0-34.0); Mean Corpuscular Volume 101.9 fl (80-94); Mean Platelet Volume 10.1 fL (7.4-10.4); Monocytes # 1.9 10^3/uL (0.2-0.9); Monocytes % 8.2 %; Neutrophils # 18.29 10^3/uL (1.8-7.7); Neutrophils % 80.8 %; Nucleated Red Blood Cells % 0 %; Platelet Count 321 10^3/cmm (130-400); Red Blood Count 3.14 10^6/uL (4.1-5.3); Red Cell Distribution Width 16.5 % (12.1-15.1); White Blood Count 22.6 10^3/uL (4.0-10.0)
[2022-10-19 03:30] LABS: Lactate (Lactic Acid level) 0.8 mmol/L (0.5-2.2)
[2022-10-19 03:39] LABS: Alanine Aminotransferase 30 U/L (0-41); Alkaline Phosphatase 64 U/L (40-130); Aspartate Amino Transferase 65 U/L (0-40); Blood Urea Nitrogen 39 mg/dL (8-23); Calcium 7.6 mg/dL (8.5-10.5); Carbon Dioxide 20 mmol/L (22-29); Chloride 102 mmol/L (98-107); Globulin 3.2 g/dL (1.3-4.6); Glomerular Filtration Rate 28.5 mL/min (90-130); Glucose 124 mg/dL (65-115); Osmolality Calculated 287 mOsm/kg (285-295); Sodium 133 mmol/L (136-145); Total Bilirubin 0.6 mg/dL (0.15-1.2); Total Protein 5.2 g/dL (6.6-8.7)
[2022-10-19] MEDS: norepinephrine 8 MG in dextrose 5 % 500 ML 38.1 MG IV (04:30)
[2022-10-19 04:43] LABS: ABG PH Result 7.31 (7.35-7.45); Arterial Blood Gas Hematocrit 21.9 % (42-52); Base Excess ABG -3.5 mmol/L (-2.0-2.0); Blood Gas Allen Test Pos; Blood Gas Sample Type Arterial; Carboxyhemoglobin 1.3 %THgb (0.4-20.1); HCO3 ABG 22.6 mmol/L (22-26); HGB O2 Sat 95.9 % (95-100); Ionized Calcium Level - ABG 1.1 mmol/L (1.1-1.4); Oxygen Saturation ABG 98.2; PO2 ABG 91.4 mmHg (80.0-100.0); Potassium Level - ABG 3.7 mmol/L (3.5-5.0); Total Hemoglobin 7.1 g/dL (14-18)
[2022-10-19 04:48] LABS: Alveolar-Arterial Oxygen Gradi 18.1 mmHg (5-10); Blood Gas Sample Site Brachial, left; Oxygen Device VENT
--- NOTE | 2022-10-19 04:48 | PC.NURSE ---
Patient has remained stable on vent throughout night. Levo was titrated up to 10 to maintain MAP >65 as patient trended down slightly through shift. No redness or pressure injuries noted on skin during betasept bath. Temps have remained in the 99s throughout the night. Versed has been titrated as needed to maintain respirations.
[2022-10-19 08:21] LABS: Procalcitonin 1.35 ng/mL (0-0.5)
[2022-10-19] MEDS: budesonide 0.5 mg/2 mL Neb INHALATION ×2 (08:30→19:55)
[2022-10-19] MEDS: pantoprazole 40 mg SDV IVP (08:39)
[2022-10-19] MEDS: meropenem 1,000 MG in sodium chloride 0.9% (plus) 50 ML 100 MG IV ×2 (08:39→21:36)
--- NOTE | 2022-10-19 08:45 | PC.SOCIAL ---
IMM Update pg 2 of IMM not updated. Patient is intubated and not anticipated to DC in the next 24-48 hours. Copy left @ bedside.
--- NOTE | 2022-10-19 09:23 | PM.PN ---
Subjective Subjective: Patient remains intubated and sedated on 1 siena of Levophed. Ostomy producing. Vitals/I&O/Wt Last Vital Signs Temp 98.2 F 10/20/22 15:35 Pulse 93 10/20/22 16:30 Resp 18 10/20/22 16:49 BP 104/56 10/20/22 16:30 Pulse Ox 96 10/20/22 16:49 O2 Del Method 10/20/22 14:15 O2 Flow Rate 5 10/15/22 12:00 FiO2 35 10/20/22 16:49 10/20/22 10/20/22 10/20/22 06:59 14:59 22:59 Intake Total 1216.617 / 3484.858 355.7 / 355.7 Output Total 1250 / 2580 82 / 82 Balance -33.383 / 904.858 355.7 / 355.7 -82 / 273.7 Weight last 48 hrs Weight 330 lb 9.6 oz Weight 350 lb Physical Exam Narrative: GEN: Intubated/sedated Abdomen soft, nondistended, no guarding Incision intact without erythema or exudate wound VAC without leak Ostomy viable and producing Urinary Catheter Management: Orellana: Cath Placed During This Visit: yes, but has since been removed by the nurse Reason for Continuing Indwelling Catheter: Accurate Measurement of Urinary Output in Critically Ill Patients Urinary Catheter Date of Insertion: 10/15/22 Urinary Catheter Time of Insertion: 13:50 Date Urinary Catheter Removed: 10/10/22 Time Urinary Catheter Discontinued: 17:45 Data 10/20/22 03:52 10/20/22 03:52 Micro: Microbiology 10/18/22 15:36 Urine Culture - Preliminary Urine Catheterized 10/19/22 06:14 Blood Culture - Preliminary Blood NEGATIVE TO DATE 10/19/22 02:17 Blood Culture - Preliminary Blood NEGATIVE TO DATE A&P Assessment and plan (1) Colon cancer: (2) Status post left hemicolectomy: (3) Hyperkalemia: (4) Atrial fibrillation with RVR: Plan Postoperative day #11 status post left hemicolectomy for colon cancer at the splenic flexure Postoperative day #4 status post resection of colonic anastomosis and end ileostomy formation IV fluids Advanced tube feeds to goal Wound VAC change Saturday Medical management per medicine-appreciate input Attestations Medical Necessity Statement*: Patient requires further hospitalization for intensive care following anastomotic leak Coding Level of Care Code Acute Code for Chg Fwd Diagnoses Colon cancer C18.9 Status post left hemicolectomy Z90.49 Hyperkalemia E87.5 Atrial fibrillation with RVR I48.91
[2022-10-19] MEDS: enoxaparin 40 mg/0.4 mL Syringe SUBCUT (10:20)
[2022-10-19] MEDS: vancomycin 1,500 MG/300 ML PIGGYBACK 200 MG IV (10:20)
--- NOTE | 2022-10-19 10:29 | PC.CHAP ---
Pastoral Care Encounter/Spiritual Assessment Type of Contact [] Declined pr internship visit [] Patient/Family/Request visit [] Outpatient visit [] Follow-up visit [] Physician referral [] Code/Alert x[] Routine visit [] Staff referral [] Actively dying [x] Patient sleeping [] Family support [] [] Out of room [] Palliative care [] [] Receiving care in room [] Pre-surgical visit [] Trauma [] Long length of stay [x ICU visit [x] Other: vent Relational/Emotional Strength [] Patient feels connected with others/family/visitors/staff [] Distress [] Loneliness/isolation [] Abandonment Spirituality of Patient [] Person of Maryanne [] Attends Zoroastrianism of their Maryanne [] Believes in Prayer [] Reads Bible or Methodist materials [] There are Spiritual issues to be addressed Furniture 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 [x] Prayer [] Active listening [] Non-anxious presence [] Spiritual/emotional support [] Crisis/trauma care [] Spiritual counseling [] Bereavement support [] Provided bereavement packet [] Provided Bible/devotional materials [] Provided toy/stuffed animal, coloring book to patient or family member [] Provided Communion [] Anointing/[place] [] Salvation [x] Completed spiritual assessment [] Other: Impact on Illness or Injury [] Angry [] Fearful [] Anxious [] Often cries [] Exhaustion [] Unable to work [] Unable to attend congregation [] Unable to walk/stand [] Unable to read [] Unable to drive [] Unable to eat/drink [] Unable to sleep [] Unable to be with family [] Patient intubated [] Other: Summary have been with PT [facility]... staff feels there isnt much improvement... Vent and being monitored ... returned to lab again yesterday ... 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
--- NOTE | 2022-10-19 12:05 | PM.PN ---
Subjective Subjective: Patient seen and examined. Pressor requirement is coming down, currently is off of vasopressin, Levophed requirement is coming down, white blood cell count has decreased slightly today, hemoglobin is also slowly decreasing likely secondary to postop blood loss. Serum creatinine has slightly gone down to 2.3, BUN has also gone down to 39. Medications: Reviewed: Yes Medication Review Details: Generic Name Dose Route Start Last Admin Trade Name Freq PRN Reason Stop Dose Admin Acetaminophen 650 mg 10/13/22 19:53 10/13/22 20:21 Acetaminophen 32 5 Mg Tablet PO 650 mg Q6H PRN Administration FEVER Albuterol/Ipratrop ium 3 ml 10/09/22 14:00 10/19/22 08:30 Ipratropium-Albu terol 3 Ml Neb INHALATION 3 ml Q6H.RESP SOFIA Administration Atorvastatin Calci um 20 mg 10/13/22 21:00 10/14/22 20:20 Atorvastatin 40 Mg Tablet PO 20 mg BEDTIME SOFIA Administration Budesonide 0.5 mg 10/08/22 20:00 10/19/22 08:30 Budesonide 0.5 M g/2 Ml Neb INHALATION 0.5 mg BID.RESPIRATORY S CH Administration Chlorhexidine Gluc stef 1 applic 10/19/22 02:00 10/19/22 08:42 Chlorhexidine Gl uconate 4% Btl 118 Ml TOPICAL 1 applic DAILY SOFIA Administration Enoxaparin Sodium 40 mg 10/14/22 10:15 10/19/22 10:20 Enoxaparin 40 Mg /0.4 Ml Syringe SUBCUT 40 mg Q24H SOFIA Administration Folic Acid 1 mg 10/13/22 22:00 10/14/22 22:01 Folic Acid 1 Mg Tablet PO 1 mg DAILY@2200 SOFIA Administration Hydralazine HCl 10 mg 10/11/22 08:39 10/12/22 02:19 Hydralazine 20 M g/Ml Inj 1 Ml IVP 10 mg Q6H PRN Administration SBP >160 Hydromorphone HCl 1 mg 10/15/22 18:46 10/18/22 11:46 Hydromorphone 1 Mg/Ml Inj 1 Ml IVP 1 mg Q2H PRN Administration PAIN Sodium Chloride 1,000 mls @ 75 ml s/hr 10/15/22 16:00 10/18/22 22:34 Sodium Chloride 0.9% IV 50 mls/hr .[id number] SOFIA Administration Propofol 1,000 mg in 100 m ls @ 0 mls/hr 10/15/22 17:30 10/18/22 22:17 Diprivan IV Infused .Q0M SOFIA Titration Protocol Per Protocol Midazolam HCl 100 mg/ Sodium 100 mls @ 0 mls/h r 10/15/22 17:30 10/18/22 20:16 Chloride IV 4.5 mg/hr .Q0M SOFIA 4.5 mls/hr Titration Protocol Per Protocol Norepinephrine Bit artrate 4 mg 254 mls @ 0 mls/h r 10/15/22 17:30 10/18/22 13:19 / Dextrose IV Infused .Q0M SOFIA Titration Protocol Per Protocol Fentanyl 2,500 mcg / Sodium 250 mls @ 0 mls/h r 10/16/22 01:15 10/19/22 05:35 Chloride IV 200 mcg/hr .Q0M SOFIA 20 mls/hr Administration Protocol Per Protocol Amiodarone HCl 900 mg/ 518 mls @ 17.267 mls/hr 10/17/22 15:45 10/18/22 17:57 Dextrose/ IV Misce llaneous IV Not Given Supplies CONT SOFIA 0.5 MG/MIN Vasopressin 100 un it/ Sodium 100 mls @ 0 mls/h r 10/17/22 22:00 10/18/22 17:23 Chloride IV 0 unit/min .Q0M SOFIA 0 mls/hr Titration Protocol Per Protocol Meropenem 1,000 mg / Sodium 50 mls @ 100 mls/ hr 10/18/22 09:00 10/19/22 09:09 Chloride IV Infused Q12H SOFIA Infusion Vancomycin/PEG/NAD A/Lysine/Water 1,500 mg in 300 m ls @ 200 mls/hr 10/18/22 10:00 10/19/22 10:20 Vancocin IV 200 mls/hr Q24H SOFIA Administration Norepinephrine Bit artrate 8 mg 508 mls @ 0 mls/h r 10/18/22 11:45 10/19/22 06:42 / Dextrose IV 8 mcg/min .Q0M SOFIA 30.48 mls/hr Titration Protocol Per Protocol Metoprolol Tartrat e 50 mg 10/14/22 09:00 10/15/22 08:29 Metoprolol Tartr ate 25 Mg Tablet PO Not Given BID@0900,2100 [facility] Ondansetron HCl 4 mg 10/08/22 13:09 10/15/22 08:12 Ondansetron 2 Mg /Ml Sdv 2 Ml IVP 4 mg Q6H PRN Administration NAUSEA AND VOMITI NG Pantoprazole Sodiu m 40 mg 10/18/22 09:00 10/19/22 08:39 Pantoprazole 40 Mg Sdv IVP 40 mg DAILY SOFIA Administration Simethicone 40 mg 10/14/22 00:41 10/14/22 20:30 Simethicone 80 M g Chew PO 40 mg TID PRN Administration HICCUPS Trazodone HCl 300 mg 10/13/22 21:00 10/18/22 21:21 Trazodone 150 Mg Tablet PO 300 mg BEDTIME SOFIA Administration Vitals/I&O/Wt Last Vital Signs Temp 99.2 F 10/19/22 08:16 Pulse 100 10/19/22 11:20 Resp 16 10/19/22 11:20 BP 108/50 10/19/22 11:20 Pulse Ox 97 10/19/22 11:20 O2 Del Method 10/19/22 08:31 O2 Flow Rate 5 10/15/22 12:00 FiO2 35 10/19/22 11:20 10/18/22 10/19/22 10/19/22 22:59 06:59 14:59 Intake Total 1190.772 / 4403.043 577.044 / 4980.087 50 / 50 Output Total 2004 1975 / 4069 Balance -814.228 / 2308.043 -1397.956 / 910.087 50 / 50 Weight last 48 hrs Weight 158.757 kg Physical Exam Narrative: Intubated sedated on mechanical ventilation Const: COMMON NORMALS: patient oriented x3 HENMT: COMMON NORMALS: normocephalic and atraumatic HEAD & SCALP: normocephalic and atraumatic Resp: COMMON NORMALS: clear to auscultation bilaterally AUSCULTATION: clear to auscultation bilaterally Cardio: COMMON NORMALS: Peripheral pulses 2+ throughout PERIPHERAL PULSES: Peripheral pulses 2+ throughout GI: AUSCULTATION: Yes normoactive bowel sounds RECTAL EXAM: Yes deferred OTHER: Soft nondistended, incision site clean, MISTI drain in place, ostomy site clean. Extremity: COMMON NORMALS: no clubbing, cyanosis or edema and no pedal edema Neuro: COMMON NORMALS: patient oriented x3 Urinary Catheter Management: Orellana: Cath Placed During This Visit: yes, but has since been removed by the nurse Reason for Continuing Indwelling Catheter: Accurate Measurement of Urinary Output in Critically Ill Patients Urinary Catheter Date of Insertion: 10/15/22 Urinary Catheter Time of Insertion: 13:50 Date Urinary Catheter Removed: 10/10/22 Time Urinary Catheter Discontinued: 17:45 Data 10/19/22 02:17 10/19/22 02:17 Micro: Microbiology 10/19/22 06:14 Blood Culture - Preliminary Blood SPECIMEN COLLECTED 10/19/22 02:17 Blood Culture - Preliminary Blood SPECIMEN COLLECTED A&P Assessment and plan (1) Status post left hemicolectomy: POD #1, done for adenocarcinoma of splenic flexure identified on routine colon cancer screening recently. Patient started complaining of severe abdominal pain on 10/15. CT abdomen and pelvis with contrast showed:Large amount of free air within the abdomen and pelvis: surgery is of the opinion:?That there is anastomotic leak with moderate to large dehiscence at the anastomosis. Repeat CT abdomen and pelvis on: 10/18: No residual free air is identified. Small amount of fluid in the central mesentery and mesenteric edema. Overall the amount of fluid has improved since the exam of 10/15/2022. status post resection of colonic anastomosis and end ileostomy formation (2) Atrial fibrillation with rapid ventricular response: In a patient with known chronic atrial fibrillation, on bisoprolol in combination with HCTZ as only rate controlling medication at home Goals post operatively patient was hyperkalemic which may have been contributing. However patient continues to be in rapid A. fib with RVR and spite of being on Cardizem drip since 08/08/2022 in addition to metoprolol 5 mg IV every 3 hours as scheduled medication. He is unable to be weaned down from 10 mg/h Cardizem. Digoxin 250 mcg was given 10/11 without any significant effect. started amiodarone 10/11 150 mg over 15 minutes followed by titratable drip at 1 mg/h. Metoprolol 5mg ivp q4h Has been on Xarelto for anticoagulation, but held 5 days prior to surgery. Restarted anticoagulation with Lovenox 1 mg/kg every 12 hours with plan to transition to Xarelto at discharge. 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 Has myocardial perfusion study on 10/05/22. Ischemic work-up was negative. Currently troponin series additionally negative. No acute ST-T wave changes to suggest acute coronary syndrome. 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 No current complaints of chest pain though need to try to maintain rate control. Had myocardial perfusion imaging on October 05, 2022 that did not show evidence of ischemia and revealed a normal ejection fraction. (4) Polycythemia: Secondary, has been managed with blood donation periodically. Preoperative hemoglobin same. (5) Obstructive sleep apnea: Not currently using cpap at home due to malfunction of machine. ABG with evidence of hypercapnic hypoxic respiratory failure. Known restrictive lung disease and asbestosis. At baseline uses CPAP at home, unable to utilize BiPAP given abdominal surgery. Currently saturating 93% on supplemental O2, does drop down to 70% on room air. Does not typically use oxygen at home. Continue to use DuoNeb and budesonide scheduled inhalation. No current indication for steroid use. Suspect that patient may have underlying baseline hypoxia and will likely require supplemental O2 at discharge. (6) Hypertension: Chronic diagnosis, usually on bisoprolol-HCTZ and lisinopril. Both held prior to surgery. Currently with low normal blood pressures in setting of recent medications and post-operative state. (7) Dyslipidemia: Chronically on statin therapy. (8) Asthma: Does not appear acutely exacerbated at present. Chronically on budesonide-fomoterol HFA. 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 (11) COVID-19: Had COVID in early 08/2022 and was hospitalized in [place] briefly needing oxygen. (12) Goiter: Last TSH recorded in our system is from 09/2020, low normal. (13) Gout: Chronically on allopurinol (14) Fever: Likely 2/2 coronavirus infection (NOT COVID) (15) Hyperkalemia: Now resolved (16) Hypernatremia: Was on D5 half NS: Has been discontinued: As patient is becoming hyponatremic. (17) TALON (acute kidney injury): (18) Septic shock: Patient met sepsis criteria: Has elevated white cell count, endorgan dysfunction in the presence of TALON, fever, likely intra-abdominal infection as a source, with possible pneumonia. Blood culture: Urine culture Lactic acid:0.08 Procalcitonin: 1.35 Initially patient was empirically on Zosyn. Antibiotic coverage has been broadened to vancomycin and meropenem. (19) Anemia: Attestations Medical Necessity Statement*: Per primary team Critical Care Time: The high probability of a clinically significant, sudden or life threatening deterioration of the patient's [] system(s) required my full and direct attention, intervention and personal management. The critical care time is as shown. This time is in addition to time spent performing any reported procedures but includes the following: [x] Data and vital sign review and interpretation [x] Patient assessment, examination and intervention [x] Documentation [x] Medication orders and management Critical Care Time (min): 40 Coding Level of Care Code Acute Code for Chg Fwd Diagnoses Status post left hemicolectomy Z90.49 Atrial fibrillation with rapid ventricular response I48.91 Myocardial bridge Q24.5 Polycythemia D75.1 Obstructive sleep apnea G47.33 Hypertension I10 Dyslipidemia E78.5 Asthma J45.30 Asthma severity: mild Asthma persistence: persistent Asthma complication type: uncomplicated Restrictive lung disease due to kyphoscoliosis J98.4; M41.9 Degenerative joint disease (DJD) of lumbar spine M47.816 COVID-19 U07.1 Goiter E04.9 Gout M10.9 Fever R50.9 Hyperkalemia E87.5 Hypernatremia E87.0 TALON (acute kidney injury) N17.9 Septic shock A41.9; R65.21 Anemia D64.9
[2022-10-19] MEDS: HYDROmorphone 1 mg/mL INJ 1 mL IVP (13:45)
[2022-10-19] MEDS: sodium chloride 0.9% 1,000 ML 50 ML IV (15:30)
[2022-10-19] MEDS: trazodone 150 mg Tablet 300 MG PO (21:50)
--- NOTE | 2022-10-19 22:33 | XRR_ITS ---
PROCEDURE INFORMATION: Exam: XR Abdomen Exam date and time: 10/19/2022 10:41 PM Age: 67 years old Clinical indication: Other: High residual TECHNIQUE: Imaging protocol: Radiologic exam of the abdomen. Views: Frontal supine view of the abdomen. 1 View. COMPARISON: CT abdomen pelvis wo con [id number] 10/18/2022 11:04 AM FINDINGS: There are postsurgical changes in the lower thoracic spine with bilateral Marr rods and also L5-S1 PLIF. There is moderate scoliosis of the lumbar spine concave to the left. Femoral venous catheter seen overlying the right groin area. There are what appear to be surgical drains overlying the abdomen in multiple locations. There is what appears to be a nasogastric tube with the tip probably in the left upper quadrant with the tip is not included on the exam. There is generalized paucity of bowel gas within the abdomen. Limitations: Study is limited by portable technique. XR/XR KUB portable [id number] IMPRESSION: Limited portable exam.
[2022-10-20] VITALS (109 sets, daily range): BP systolic 81–136; BP diastolic 44–81; PULSE 85–110; RESP 16–25; TEMP 36.8–37.3; O2SAT 91–100; BMI 40.2
--- NOTE | 2022-10-20 02:10 | PC.NURSE ---
Fentanyl Drip Patient's fentanyl drip order at 0114 this morning. Currently, only fentanyl administering for sedation/pain management. Dr. Carter contacted and order received to renew fentanyl drip order per protocol.
[2022-10-20] MEDS: ipratropium-albuterol 3 mL Neb INHALATION ×4 (02:20→19:42)
--- NOTE | 2022-10-20 02:20 | PC.NURSE ---
Tube Feed At 2000, patient's gastric residual was 145 ml of green content with tube feeds administering at 20 ml/hr. At 2215, patient's gastric residual [address] content[address] Carter contacted and order received to decrease tube feed to 10 ml/hr, obtain a KUB xray, and to recheck gastric residual in one hour. At 0000, patient's gastric residual had decreased from 200 to 184 ml, still green in color. Dr. Carter notified; order received to recheck residual in one hour. Tube feed held for this hour. At 0100, patient's residual was [address] Carter notified; order received to resume tube feed at 10 ml/hr and recheck residual in one hour. At 0200, patient's residual still 175 ml with tube feed administering at 10 ml/hr. Dr. Carter notified and order received to hold tube feed for 4 hours and recheck gastric residual in four hours.
--- NOTE | 2022-10-20 03:38 | PC.NURSE ---
Seizure-like Activity Around 0300, patient's right and left shoulders began shaking up and down in a fast manner. No other movement noted, vitals stable, and eyes equal/reactive to light. Dr. Carter contacted and order received to restart versed drip per protocol. See MAR for details.
[2022-10-20 04:29] LABS: Basophils # 0.1 10^3/uL (0.0-0.1); Basophils % 0.4 %; Eosinophils # 0.3 10^3/uL (0.0-0.8); Eosinophils % 1.7 %; Hematocrit 29.8 % (42.0-52.0); Hemoglobin 9.3 g/dL (11.7-16.6); Lymphocytes # 0.9 10^3/uL (0.8-4.8); Lymphocytes % 4.6 %; Mean Corpuscular HGB Conc 31.2 g/dL (30.0-36.0); Mean Corpuscular Hemoglobin 31.5 pg (28.0-34.0); Mean Platelet Volume 9.9 fL (7.4-10.4); Monocytes # 1.6 10^3/uL (0.2-0.9); Monocytes % 8.7 %; Neutrophils # 14.49 10^3/uL (1.8-7.7); Neutrophils % 78.3 %; Nucleated Red Blood Cells % 0 %; Platelet Count 441 10^3/cmm (130-400); Red Blood Count 2.95 10^6/uL (4.1-5.3); Red Cell Distribution Width 16.3 % (12.1-15.1); White Blood Count 18.5 10^3/uL (4.0-10.0)
[2022-10-20 04:37] LABS: ABG PH Result 7.35 (7.35-7.45); Alveolar-Arterial Oxygen Gradi 14.3 mmHg (5-10); Arterial Blood Gas Hematocrit 22.6 % (42-52); Blood Gas Allen Test Pos; Blood Gas Operator Identificat JB; Blood Gas Sample Site Radial, right; Blood Gas Sample Type Arterial; Carboxyhemoglobin 1.5 %THgb (0.4-20.1); HCO3 ABG 22.4 mmol/L (22-26); HGB O2 Sat 96.3 % (95-100); Ionized Calcium Level - ABG 1.2 mmol/L (1.1-1.4); Methemoglobin 0.7 % (0.4-1.5); Oxygen Device VENT; Oxygen Saturation ABG 98.5; PO2 ABG 89.5 mmHg (80.0-100.0); Potassium Level - ABG 3.7 mmol/L (3.5-5.0); Total Hemoglobin 7.4 g/dL (14-18)
[2022-10-20 04:50] LABS: Alanine Aminotransferase 26 U/L (0-41); Albumin Level 2.1 g/dL (3.5-5.2); Alkaline Phosphatase 172 U/L (40-130); Anion Gap 13.9 (5-19); Aspartate Amino Transferase 50 U/L (0-40); Blood Urea Nitrogen 42 mg/dL (8-23); Calcium 7.9 mg/dL (8.5-10.5); Carbon Dioxide 21 mmol/L (22-29); Chloride 105 mmol/L (98-107); Globulin 3.2 g/dL (1.3-4.6); Glomerular Filtration Rate 28.5 mL/min (90-130); Glucose 111 mg/dL (65-115); Osmolality Calculated 293 mOsm/kg (285-295); Potassium 3.9 mmol/L (3.5-5.1); Sodium 136 mmol/L (136-145); Total Bilirubin 0.5 mg/dL (0.15-1.2); Total Protein 5.3 g/dL (6.6-8.7)
[2022-10-20 05:02] LABS: Slide Review Slide Review Perform
[2022-10-20] MEDS: sodium chloride 0.9% 1,000 ML 75 ML IV ×2 (06:11→19:18)
[2022-10-20] MEDS: pantoprazole 40 mg SDV IVP (08:26)
[2022-10-20] MEDS: meropenem 1,000 MG in sodium chloride 0.9% (plus) 50 ML 100 MG IV ×2 (08:26→21:10)
[2022-10-20] MEDS: chlorhexidine gluconate 4% Btl 118 mL 1 APPLIC TOPICAL (08:27)
[2022-10-20] MEDS: budesonide 0.5 mg/2 mL Neb INHALATION ×2 (08:31→19:42)
[2022-10-20] MEDS: enoxaparin 40 mg/0.4 mL Syringe SUBCUT (09:41)
[2022-10-20] MEDS: vancomycin 1,500 MG/300 ML PIGGYBACK 200 MG IV (09:41)
[2022-10-20] MEDS: propofol 1,000 MG/100 ML INJ 4.3 MG IV (09:41)
--- NOTE | 2022-10-20 13:19 | PC.NUTR ---
TF consult received. Recommend consideration of Osmolite 1.2 beginning @ 10 mls/hr, increasing 10 mls/hr Q8H as tolerated until goal rate of 60 mls/hr is reached with flushes of 120 mls Q4H or per MD discretion. Details in RD assessment.
--- NOTE | 2022-10-20 13:43 | XRR_ITS ---
PROCEDURE INFORMATION: Exam: XR Chest Exam date and time: 10/20/2022 1:51 PM Age: 67 years old Clinical indication: Shortness of breath; Additional info: Confirm vent tube placement TECHNIQUE: Imaging protocol: Radiologic exam of the chest. Views: 1 view. COMPARISON: CR XR chest 1V portable [id number] 10/16/2022 1:12 PM FINDINGS: Tubes, catheters and devices: Tip of the ET tube is positioned 4.0 cm superior to the shania. Distal aspect of the G-tube is positioned in the left upper quadrant abdomen in the expected location of the stomach. Lungs: Streaky bibasilar opacities are similar to the prior study. Pleural spaces: Left costophrenic angle is obscured and a small pleural effusion cannot be excluded. Heart/Mediastinum: Cardiomegaly. Bones/joints: Unremarkable. XR/XR chest 1V portable [id number] IMPRESSION: 1. Tip of the ET tube is positioned 4.0 cm superior to the shania. 2. Streaky bibasilar opacities are similar to the prior study. 3. Cardiomegaly.
--- NOTE | 2022-10-20 16:01 | PM.PN ---
Subjective Subjective: Patient was seen and examined this morning, continues to be on mechanical ventilation, with minimal vent setting, a.m. ABG, x-ray chest has been reviewed, white blood cell count is trending down, heart rate is better controlled, currently off Levophed, Versed has been discontinued, on propofol, fentanyl. Medications: Reviewed: Yes Medication Review Details: Generic Name Dose Route Start Last Admin Trade Name Freq PRN Reason Stop Dose Admin Acetaminophen 650 mg 10/13/22 19:53 10/13/22 20:21 Acetaminophen 32 5 Mg Tablet PO 650 mg Q6H PRN Administration FEVER Albuterol/Ipratrop ium 3 ml 10/09/22 14:00 10/20/22 14:19 Ipratropium-Albu terol 3 Ml Neb INHALATION 3 ml Q6H.RESP SOFIA Administration Atorvastatin Calci um 20 mg 10/13/22 21:00 10/14/22 20:20 Atorvastatin 40 Mg Tablet PO 20 mg BEDTIME SOFIA Administration Budesonide 0.5 mg 10/08/22 20:00 10/20/22 08:31 Budesonide 0.5 M g/2 Ml Neb INHALATION 0.5 mg BID.RESPIRATORY S CH Administration Chlorhexidine Gluc stef 1 applic 10/19/22 02:00 10/20/22 08:27 Chlorhexidine Gl uconate 4% Btl 118 Ml TOPICAL 1 applic DAILY SOFIA Administration Enoxaparin Sodium 40 mg 10/14/22 10:15 10/20/22 09:41 Enoxaparin 40 Mg /0.4 Ml Syringe SUBCUT 40 mg Q24H SOFIA Administration Folic Acid 1 mg 10/13/22 22:00 10/14/22 22:01 Folic Acid 1 Mg Tablet PO 1 mg DAILY@2200 SOFIA Administration Hydralazine HCl 10 mg 10/11/22 08:39 10/12/22 02:19 Hydralazine 20 M g/Ml Inj 1 Ml IVP 10 mg Q6H PRN Administration SBP >160 Sodium Chloride 1,000 mls @ 75 ml s/hr 10/15/22 16:00 10/20/22 06:11 Sodium Chloride 0.9% IV 75 mls/hr .[id number] SOFIA Administration Propofol 1,000 mg in 100 m ls @ 0 mls/hr 10/15/22 17:30 10/20/22 09:41 Diprivan IV 5 mcg/kg/min .Q0M SOFIA 4.3 mls/hr Administration Protocol Per Protocol Norepinephrine Bit artrate 4 mg 254 mls @ 0 mls/h r 10/15/22 17:30 10/18/22 13:19 / Dextrose IV Infused .Q0M SOFIA Titration Protocol Per Protocol Amiodarone HCl 900 mg/ 518 mls @ 17.267 mls/hr 10/17/22 15:45 10/19/22 21:45 Dextrose/ IV Misce llaneous IV 0.5 mg/min Supplies CONT SOFIA 17.27 mls/hr Administration 0.5 MG/MIN Vasopressin 100 un it/ Sodium 100 mls @ 0 mls/h r 10/17/22 22:00 10/18/22 17:23 Chloride IV 0 unit/min .Q0M SOFIA 0 mls/hr Titration Protocol Per Protocol Meropenem 1,000 mg / Sodium 50 mls @ 100 mls/ hr 10/18/22 09:00 10/20/22 08:56 Chloride IV Infused Q12H SOFIA Infusion Vancomycin/PEG/NAD A/Lysine/Water 1,500 mg in 300 m ls @ 200 mls/hr 10/18/22 10:00 10/20/22 11:11 Vancocin IV Infused Q24H SOFIA Infusion Norepinephrine Bit artrate 8 mg 508 mls @ 0 mls/h r 10/18/22 11:45 10/20/22 03:49 / Dextrose IV 0 mcg/min .Q0M SOFIA 0 mls/hr Titration Protocol Per Protocol Fentanyl 2,500 mcg / Sodium 250 mls @ 0 mls/h r 10/20/22 02:15 10/20/22 10:02 Chloride IV 175 mcg/hr .Q0M SOFIA 17.5 mls/hr Administration Protocol Per Protocol Midazolam HCl 100 mg/ Sodium 100 mls @ 0 mls/h r 10/20/22 03:15 10/20/22 09:30 Chloride IV 0 mg/hr .Q0M SOFIA 0 mls/hr Titration Protocol Per Protocol Metoprolol Tartrat e 50 mg 10/14/22 09:00 10/15/22 08:29 Metoprolol Tartr ate 25 Mg Tablet PO Not Given BID@0900,2100 SOFIA Ondansetron HCl 4 mg 10/08/22 13:09 10/15/22 08:12 Ondansetron 2 Mg /Ml Sdv 2 Ml IVP 4 mg Q6H PRN Administration NAUSEA AND VOMITI NG Pantoprazole Sodiu m 40 mg 10/18/22 09:00 10/20/22 08:26 Pantoprazole 40 Mg Sdv IVP 40 mg DAILY SOFIA Administration Simethicone 40 mg 10/14/22 00:41 10/14/22 20:30 Simethicone 80 M g Chew PO 40 mg TID PRN Administration HICCUPS Trazodone HCl 300 mg 10/13/22 21:00 10/19/22 21:50 Trazodone 150 Mg Tablet PO 300 mg BEDTIME SOFIA Administration Vitals/I&O/Wt Last Vital Signs Temp 98.2 F 10/20/22 15:35 Pulse 98 10/20/22 15:31 Resp 19 H 10/20/22 14:22 BP 98/50 10/20/22 14:15 Pulse Ox 96 10/20/22 14:22 O2 Del Method 10/20/22 14:15 O2 Flow Rate 5 10/15/22 12:00 FiO2 35 10/20/22 14:22 10/20/22 10/20/22 10/20/22 06:59 14:59 22:59 Intake Total 1216.617 / 3484.858 355.7 / 355.7 Output Total 1250 / 2580 82 / 82 Balance -33.383 / 904.858 355.7 / 355.7 -82 / 273.7 Weight last 48 hrs Weight 149.958 kg Weight 158.757 kg Physical Exam Narrative: Intubated sedated on mechanical ventilation Const: COMMON NORMALS: patient oriented x3 HENMT: COMMON NORMALS: normocephalic and atraumatic HEAD & SCALP: normocephalic and atraumatic Resp: COMMON NORMALS: clear to auscultation bilaterally AUSCULTATION: clear to auscultation bilaterally Cardio: COMMON NORMALS: Peripheral pulses 2+ throughout PERIPHERAL PULSES: Peripheral pulses 2+ throughout GI: COMMON NORMALS: Normal to inspection, nondistended, normoactive bowel sounds present, Soft to palpation, non-tender, No hepatosplenomegaly present and no masses AUSCULTATION: Yes normoactive bowel sounds PALPATION: Yes Soft to palpation and Yes No hepatosplenomegaly present RECTAL EXAM: Yes deferred OTHER: Soft nondistended, incision site clean, MISTI drain in place, ostomy site clean. Extremity: COMMON NORMALS: no clubbing, cyanosis or edema and no pedal edema Neuro: COMMON NORMALS: patient oriented x3 Urinary Catheter Management: Orellana: Cath Placed During This Visit: yes, but has since been removed by the nurse Reason for Continuing Indwelling Catheter: Accurate Measurement of Urinary Output in Critically Ill Patients Urinary Catheter Date of Insertion: 10/15/22 Urinary Catheter Time of Insertion: 13:50 Date Urinary Catheter Removed: 10/10/22 Time Urinary Catheter Discontinued: 17:45 Data 10/20/22 03:52 10/20/22 03:52 Micro: Microbiology 10/18/22 15:36 Urine Culture - Preliminary Urine Catheterized 10/19/22 06:14 Blood Culture - Preliminary Blood NEGATIVE TO DATE 10/19/22 02:17 Blood Culture - Preliminary Blood NEGATIVE TO DATE A&P Assessment and plan (1) Status post left hemicolectomy: for adenocarcinoma of splenic flexure identified on routine colon cancer screening recently. Patient started complaining of severe abdominal pain on 10/15. CT abdomen and pelvis with contrast showed:Large amount of free air within the abdomen and pelvis: surgery is of the opinion:?That there is anastomotic leak with moderate to large dehiscence at the anastomosis. Repeat CT abdomen and pelvis on: 10/18: No residual free air is identified. Small amount of fluid in the central mesentery and mesenteric edema. Overall the amount of fluid has improved since the exam of 10/15/2022. status post resection of colonic anastomosis and end ileostomy formation (2) Atrial fibrillation with rapid ventricular response: In a patient with known chronic atrial fibrillation, on bisoprolol in combination with HCTZ as only rate controlling medication at home Goals post operatively patient was hyperkalemic which may have been contributing. However patient continues to be in rapid A. fib with RVR and spite of being on Cardizem drip since 08/08/2022 in addition to metoprolol 5 mg IV every 3 hours as scheduled medication. He is unable to be weaned down from 10 mg/h Cardizem. Digoxin 250 mcg was given 10/11 without any significant effect. started amiodarone 10/11 150 mg over 15 minutes followed by titratable drip at 1 mg/h. Metoprolol 5mg ivp q4h Has been on Xarelto for anticoagulation, but held 5 days prior to surgery. Restarted anticoagulation with Lovenox 1 mg/kg every 12 hours with plan to transition to Xarelto at discharge. 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 Has myocardial perfusion study on 10/05/22. Ischemic work-up was negative. Currently troponin series additionally negative. No acute ST-T wave changes to suggest acute coronary syndrome. 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 No current complaints of chest pain though need to try to maintain rate control. Had myocardial perfusion imaging on October 05, 2022 that did not show evidence of ischemia and revealed a normal ejection fraction. (4) Polycythemia: Secondary, has been managed with blood donation periodically. Preoperative hemoglobin same. (5) Obstructive sleep apnea: Not currently using cpap at home due to malfunction of machine. ABG with evidence of hypercapnic hypoxic respiratory failure. Known restrictive lung disease and asbestosis. At baseline uses CPAP at home, unable to utilize BiPAP given abdominal surgery. Currently saturating 93% on supplemental O2, does drop down to 70% on room air. Does not typically use oxygen at home. Continue to use DuoNeb and budesonide scheduled inhalation. No current indication for steroid use. Suspect that patient may have underlying baseline hypoxia and will likely require supplemental O2 at discharge. (6) Hypertension: Chronic diagnosis, usually on bisoprolol-HCTZ and lisinopril. Both held prior to surgery. Currently with low normal blood pressures in setting of recent medications and post-operative state. (7) Dyslipidemia: Chronically on statin therapy. (8) Asthma: Does not appear acutely exacerbated at present. Chronically on budesonide-fomoterol HFA. 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 (11) COVID-19: Had COVID in early 08/2022 and was hospitalized in [place] briefly needing oxygen. (12) Goiter: Last TSH recorded in our system is from 09/2020, low normal. (13) Gout: Chronically on allopurinol (14) Fever: Likely 2/2 coronavirus infection (NOT COVID) (15) Hyperkalemia: Now resolved (16) Hypernatremia: Was on D5 half NS: Has been discontinued: As patient is becoming hyponatremic. (17) TALON (acute kidney injury): (18) Septic shock: Patient met sepsis criteria: Has elevated white cell count, endorgan dysfunction in the presence of TALON, fever, likely intra-abdominal infection as a source, with possible pneumonia. Blood culture: NTD Urine culture: NTD Lactic acid:0.08 Procalcitonin: 1.35 Initially patient was empirically on Zosyn. Antibiotic coverage has been broadened to vancomycin and meropenem. (19) Anemia: Attestations Medical Necessity Statement*: PER PRIMARY Critical Care Time: The high probability of a clinically significant, sudden or life threatening deterioration of the patient's [] system(s) required my full and direct attention, intervention and personal management. The critical care time is as shown. This time is in addition to time spent performing any reported procedures but includes the following: [x] Data and vital sign review and interpretation [x] Patient assessment, examination and intervention [x] Documentation [x] Medication orders and management Critical Care Time (min): 30 Coding Level of Care Code Acute Code for Chg Fwd Exam Detailed Diagnoses Status post left hemicolectomy Z90.49 Atrial fibrillation with rapid ventricular response I48.91 Myocardial bridge Q24.5 Polycythemia D75.1 Obstructive sleep apnea G47.33 Hypertension I10 Dyslipidemia E78.5 Asthma J45.30 Asthma complication type: uncomplicated Asthma persistence: persistent Asthma severity: mild Restrictive lung disease due to kyphoscoliosis J98.4; M41.9 Degenerative joint disease (DJD) of lumbar spine M47.816 COVID-19 U07.1 Goiter E04.9 Gout M10.9 Fever R50.9 Hyperkalemia E87.5 Hypernatremia E87.0 TALON (acute kidney injury) N17.9 Septic shock A41.9; R65.21 Anemia D64.9
--- NOTE | 2022-10-20 17:26 | P.PN_ITS ---
Subjective Subjective: Patient remains intubated and sedated. Ostomy producing. Vitals/I&O/Wt Last Vital Signs Temp 98.2 F 10/20/22 15:35 Pulse 93 10/20/22 16:30 Resp 18 10/20/22 16:49 BP 104/56 10/20/22 16:30 Pulse Ox 96 10/20/22 16:49 O2 Del Method 10/20/22 14:15 O2 Flow Rate 5 10/15/22 12:00 FiO2 35 10/20/22 16:49 10/20/22 10/20/22 10/20/22 06:59 14:59 22:59 Intake Total 1216.617 / 3484.858 355.7 / 355.7 Output Total 1250 / 2580 82 / 82 Balance -33.383 / 904.858 355.7 / 355.7 -82 / 273.7 Weight last 48 hrs Weight 330 lb 9.6 oz Weight 350 lb Physical Exam Narrative: GEN: Intubated/sedated Abdomen soft, nondistended, no guarding Incision intact without erythema or exudate wound VAC without leak Ostomy viable and producing Urinary Catheter Management: Orellana: Cath Placed During This Visit: yes, but has since been removed by the nurse Reason for Continuing Indwelling Catheter: Accurate Measurement of Urinary Output in Critically Ill Patients Urinary Catheter Date of Insertion: 10/15/22 Urinary Catheter Time of Insertion: 13:50 Date Urinary Catheter Removed: 10/10/22 Time Urinary Catheter Discontinued: 17:45 Data 10/20/22 03:52 10/20/22 03:52 Micro: Microbiology 10/18/22 15:36 Urine Culture - Preliminary Urine Catheterized 10/19/22 06:14 Blood Culture - Preliminary Blood NEGATIVE TO DATE 10/19/22 02:17 Blood Culture - Preliminary Blood NEGATIVE TO DATE A&P Assessment and plan (1) Colon cancer: (2) Status post left hemicolectomy: (3) Hyperkalemia: (4) Atrial fibrillation with RVR: Plan Postoperative day #12 status post left hemicolectomy for colon cancer at the splenic flexure Postoperative day #5 status post resection of colonic anastomosis and end ileostomy formation IV fluids Advanced tube feeds to goal Wound VAC change Saturday Medical management per medicine-appreciate input Attestations Medical Necessity Statement*: Patient requires further hospitalization for i ntensive care following anastomotic leak Coding Level of Care Code Acute Code for Chg Fwd Diagnoses Colon cancer C18.9 Status post left hemicolectomy Z90.49 Hyperkalemia E87.5 Atrial fibrillation with RVR I48.91
[2022-10-20] MEDS: trazodone 150 mg Tablet 300 MG PO (21:11)
[2022-10-21] VITALS (105 sets, daily range): BP systolic 89–148; BP diastolic 44–76; PULSE 65–105; RESP 11–29; TEMP 36.7–37.1; O2SAT 75–100; BMI 40.4
[2022-10-21] MEDS: propofol 1,000 MG/100 ML INJ 8.6 MG IV (00:30)
[2022-10-21] MEDS: ipratropium-albuterol 3 mL Neb INHALATION ×4 (03:14→19:25)
[2022-10-21 03:26] LABS: ABG PCO2 42.7 mmHg (35-45); ABG PH Result 7.33 (7.35-7.45); Alveolar-Arterial Oxygen Gradi 11.6 mmHg (5-10); Arterial Blood Gas Hematocrit 30.3 % (42-52); Base Excess ABG -3.3 mmol/L (-2.0-2.0); Blood Gas Allen Test Pos; Blood Gas Sample Site Radial, left; Blood Gas Sample Type Arterial; Carboxyhemoglobin 1.3 %THgb (0.4-20.1); HCO3 ABG 22.5 mmol/L (22-26); HGB O2 Sat 97.1 % (95-100); Ionized Calcium Level - ABG 1.2 mmol/L (1.1-1.4); Methemoglobin 0.4 % (0.4-1.5); Oxygen Device VENT; Oxygen Saturation ABG 98.8; Potassium Level - ABG 3.9 mmol/L (3.5-5.0); Total Hemoglobin 9.9 g/dL (14-18)
[2022-10-21 05:52] LABS: Basophils % 0.2 %; Eosinophils # 0.3 10^3/uL (0.0-0.8); Hematocrit 30.3 % (42.0-52.0); Hemoglobin 9.3 g/dL (11.7-16.6); Lymphocytes # 0.9 10^3/uL (0.8-4.8); Lymphocytes % 7.1 %; Mean Corpuscular HGB Conc 30.7 g/dL (30.0-36.0); Mean Platelet Volume 9.8 fL (7.4-10.4); Monocytes # 1.4 10^3/uL (0.2-0.9); Monocytes % 11.3 %; Neutrophils # 8.66 10^3/uL (1.8-7.7); Neutrophils % 67.9 %; Nucleated Red Blood Cells % 0 %; Platelet Count 501 10^3/cmm (130-400); Red Cell Distribution Width 16.6 % (12.1-15.1); White Blood Count 12.7 10^3/uL (4.0-10.0)
[2022-10-21 06:25] LABS: Slide Review Slide Review Perform
[2022-10-21 06:27] LABS: Alanine Aminotransferase 23 U/L (0-41); Albumin Level 1.8 g/dL (3.5-5.2); Alkaline Phosphatase 58 U/L (40-130); Aspartate Amino Transferase 36 U/L (0-40); Blood Urea Nitrogen 45 mg/dL (8-23); Calcium 8.4 mg/dL (8.5-10.5); Carbon Dioxide 22 mmol/L (22-29); Chloride 109 mmol/L (98-107); Globulin 3.7 g/dL (1.3-4.6); Glomerular Filtration Rate 31.7 mL/min (90-130); Glucose 113 mg/dL (65-115); Osmolality Calculated 300 mOsm/kg (285-295); Sodium 139 mmol/L (136-145); Total Bilirubin 0.3 mg/dL (0.15-1.2); Total Protein 5.5 g/dL (6.6-8.7)
[2022-10-21 06:28] LABS: Creatinine Clr Calc Pharmacy 54.2096
[2022-10-21] MEDS: propofol 1,000 MG/100 ML INJ 17.2 MG IV (06:50)
[2022-10-21] MEDS: pantoprazole 40 mg SDV IVP (08:24)
[2022-10-21] MEDS: chlorhexidine gluconate 4% Btl 118 mL 1 APPLIC TOPICAL (08:24)
[2022-10-21] MEDS: budesonide 0.5 mg/2 mL Neb INHALATION ×2 (08:30→19:25)
[2022-10-21] MEDS: meropenem 1,000 MG in sodium chloride 0.9% (plus) 50 ML 100 MG IV ×2 (08:48→21:10)
[2022-10-21] MEDS: dexmedetomidine 400 MCG in sodium chloride 0.9% (100 ml) 100 ML IV (09:18)
[2022-10-21] MEDS: enoxaparin 40 mg/0.4 mL Syringe SUBCUT (09:47)
[2022-10-21] MEDS: vancomycin 1,500 MG/300 ML PIGGYBACK 200 MG IV (09:47)
--- NOTE | 2022-10-21 10:58 | PC.SOCIAL ---
IMM Update pg 2 of IMM not updated. Patient is intubated and not anticipated to DC in the next 24-48 hours.
[2022-10-21 11:14] LABS: Vancomycin Trough 14.9 ug/mL (10-15)
--- NOTE | 2022-10-21 13:06 | P.PN_ITS ---
Subjective Subjective: Patient was seen and examined this morning, a.m. ABG reviewed, SCR is going down, white blood cell count is going down, sedations have been turned, weaning trial has been started. I am hoping that he will be extubated by tomorrow once sedation is completely weaned off, and is able to follow commands. Currently has been placed on Precedex drip for smooth extubation. Medications: Reviewed: Yes Medication Review Details: Generic Name Dose Route Start Last Admin Trade Name Cari PRN Reason Stop Dose Admin Acetaminophen 650 mg 10/13/22 19:53 10/13/22 20:21 Acetaminophen 32 5 Mg Tablet PO 650 mg Q6H PRN Administration FEVER Albuterol/Ipratrop ium 3 ml 10/09/22 14:00 10/20/22 14:19 Ipratropium-Albu terol 3 Ml Neb INHALATION 3 ml Q6H.RESP SOFIA Administration Atorvastatin Calci um 20 mg 10/13/22 21:00 10/14/22 20:20 Atorvastatin 40 Mg Tablet PO 20 mg BEDTIME SOFIA Administration Budesonide 0.5 mg 10/08/22 20:00 10/20/22 08:31 Budesonide 0.5 M g/2 Ml Neb INHALATION 0.5 mg BID.RESPIRATORY S CH Administration Chlorhexidine Gluc stef 1 applic 10/19/22 02:00 10/20/22 08:27 Chlorhexidine Gl uconate 4% Btl 118 Ml TOPICAL 1 applic DAILY SOFIA Administration Enoxaparin Sodium 40 mg 10/14/22 10:15 10/20/22 09:41 Enoxaparin 40 Mg /0.4 Ml Syringe SUBCUT 40 mg Q24H SOFIA Administration Folic Acid 1 mg 10/13/22 22:00 10/14/22 22:01 Folic Acid 1 Mg Tablet PO 1 mg DAILY@2200 SOFIA Administration Hydralazine HCl 10 mg 10/11/22 08:39 10/12/22 02:19 Hydralazine 20 M g/Ml Inj 1 Ml IVP 10 mg Q6H PRN Administration SBP >160 Sodium Chloride 1,000 mls @ 75 ml s/hr 10/15/22 16:00 10/20/22 06:11 Sodium Chloride 0.9% IV 75 mls/hr .[id number] SOFIA Administration Propofol 1,000 mg in 100 m ls @ 0 mls/hr 10/15/22 17:30 10/20/22 09:41 Diprivan IV 5 mcg/kg/min .Q0M SOFIA 4.3 mls/hr Administration Protocol Per Protocol Norepinephrine Bit artrate 4 mg 254 mls @ 0 mls/h r 10/15/22 17:30 10/18/22 13:19 / Dextrose IV Infused .Q0M SOFIA Titration Protocol Per Protocol Amiodarone HCl 900 mg/ 518 mls @ 17.267 mls/hr 10/17/22 15:45 10/19/22 21:45 Dextrose/ IV Misce llaneous IV 0.5 mg/min Supplies CONT SOFIA 17.27 mls/hr Administration 0.5 MG/MIN Vasopressin 100 un it/ Sodium 100 mls @ 0 mls/h r 10/17/22 22:00 10/18/22 17:23 Chloride IV 0 unit/min .Q0M SOFIA 0 mls/hr Titration Protocol Per Protocol Meropenem 1,000 mg / Sodium 50 mls @ 100 mls/ hr 10/18/22 09:00 10/20/22 08:56 Chloride IV Infused Q12H SOFIA Infusion Vancomycin/PEG/NAD A/Lysine/Water 1,500 mg in 300 m ls @ 200 mls/hr 10/18/22 10:00 10/20/22 11:11 Vancocin IV Infused Q24H SOFIA Infusion Norepinephrine Bit artrate 8 mg 508 mls @ 0 mls/h r 10/18/22 11:45 10/20/22 03:49 / Dextrose IV 0 mcg/min .Q0M SOFIA 0 mls/hr Titration Protocol Per Protocol Fentanyl 2,500 mcg / Sodium 250 mls @ 0 mls/h r 10/20/22 02:15 10/20/22 10:02 Chloride IV 175 mcg/hr .Q0M SOFIA 17.5 mls/hr Administration Protocol Per Protocol Midazolam HCl 100 mg/ Sodium 100 mls @ 0 mls/h r 10/20/22 03:15 10/20/22 09:30 Chloride IV 0 mg/hr .Q0M SOFIA 0 mls/hr Titration Protocol Per Protocol Metoprolol Tartrat e 50 mg 10/14/22 09:00 10/15/22 08:29 Metoprolol Tartr ate 25 Mg Tablet PO Not Given BID@0900,2100 SOFIA Ondansetron HCl 4 mg 10/08/22 13:09 10/15/22 08:12 Ondansetron 2 Mg /Ml Sdv 2 Ml IVP 4 mg Q6H PRN Administration NAUSEA AND VOMITI NG Pantoprazole Sodiu m 40 mg 10/18/22 09:00 10/20/22 08:26 Pantoprazole 40 Mg Sdv IVP 40 mg DAILY SOFIA Administration Simethicone 40 mg 10/14/22 00:41 10/14/22 20:30 Simethicone 80 M g Chew PO 40 mg TID PRN Administration HICCUPS Trazodone HCl 300 mg 10/13/22 21:00 10/19/22 21:50 Trazodone 150 Mg Tablet PO 300 mg BEDTIME SOFIA Administration Vitals/I&O/Wt Last Vital Signs Temp 98.6 F 10/21/22 08:00 Pulse 68 10/21/22 12:45 Resp 25 H 10/21/22 12:06 BP 99/53 10/21/22 12:45 Pulse Ox 95 10/21/22 12:45 O2 Del Method 10/21/22 08:30 O2 Flow Rate 5 10/15/22 12:00 FiO2 35 10/21/22 12:06 10/20/22 10/21/22 10/21/22 22:59 06:59 14:59 Intake Total 1249.122 / 8348.378 4610.335 / 2859.157 1626.400 / 1626.400 Output Total 1552 / 1552 1168 / 2720 Balance -302.878 / 52.822 86.335 / 239.095 2236.400 / 1626.400 Weight last 48 hrs Weight 150.502 kg Weight 149.958 kg Physical Exam Narrative: Intubated sedated on mechanical ventilation HENMT: COMMON NORMALS: normocephalic and atraumatic HEAD & SCALP: normocephalic and atraumatic Resp: COMMON NORMALS: clear to auscultation bilaterally AUSCULTATION: clear to auscultation bilaterally Cardio: COMMON NORMALS: Peripheral pulses 2+ throughout PERIPHERAL PULSES: Peripheral pulses 2+ throughout GI: COMMON NORMALS: Normal to inspection, nondistended, normoactive bowel sounds present, Soft to palpation, non-tender, No hepatosplenomegaly present and no masses AUSCULTATION: Yes normoactive bowel sounds PALPATION: Yes Soft to palpation and Yes No hepatosplenomegaly present RECTAL EXAM: Yes deferred OTHER: Soft nondistended, incision site clean, MISTI drain in place, ostomy site clean. Extremity: COMMON NORMALS: no clubbing, cyanosis or edema and no pedal edema Urinary Catheter Management: Orellana: Cath Placed During This Visit: yes, but has since been removed by the nurse Reason for Continuing Indwelling Catheter: Accurate Measurement of Urinary Output in Critically Ill Patients Urinary Catheter Date of Insertion: 10/15/22 Urinary Catheter Time of Insertion: 13:50 Date Urinary Catheter Removed: 10/10/22 Time Urinary Catheter Discontinued: 17:45 Data 10/21/22 05:31 10/21/22 05:31 Micro: Microbiology 10/18/22 15:36 Urine Culture - Final Urine Catheterized A&P Assessment and plan (1) Status post left hemicolectomy: for adenocarcinoma of splenic flexure identified on routine colon cancer screening recently. Patient started complaining of severe abdominal pain on 10/15. CT abdomen and pelvis with contrast showed:Large amount of free air within the abdomen and pelvis: surgery is of the opinion:?That there is anastomotic leak with moderate to large dehiscence at the anastomosis. Repeat CT abdomen and pelvis on: 10/18: No residual free air is identified. Small amount of fluid in the central mesentery and mesenteric edema. Overall the amount of fluid has improved since the exam of 10/15/2022. status post resection of colonic anastomosis and end ileostomy formation (2) Atrial fibrillation with rapid ventricular response: In a patient with known chronic atrial fibrillation, on bisoprolol in combination with HCTZ as only rate controlling medication at home Goals post operatively patient was hyperkalemic which may have been c ontributing. However patient continues to be in rapid A. fib with RVR and spite of being on Cardizem drip since 08/08/2022 in addition to metoprolol 5 mg IV every 3 hours as scheduled medication. He is unable to be weaned down from 10 mg/h Cardizem. Digoxin 250 mcg was given 10/11 without any significant effect. started amiodarone 10/11 150 mg over 15 minutes followed by titratable drip at 1 mg/h. Metoprolol 5mg ivp q4h .Has been on Xarelto for anticoagulation, currently on hold. 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 Has myocardial perfusion study on 10/05/22. Ischemic work-up was negative. Currently troponin series additionally negative. No acute ST-T wave changes to suggest acute coronary syndrome. 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 No current complaints of chest pain though need to try to maintain rate control. Had myocardial perfusion imaging on October 05, 2022 that did not show evidence of ischemia and revealed a normal ejection fraction. (4) Polycythemia: Secondary, has been managed with blood donation periodically. Preoperative hemoglobin same. (5) Obstructive sleep apnea: Not currently using cpap at home due to malfunction of machine. ABG with evidence of hypercapnic hypoxic respiratory failure. Known restrictive lung disease and asbestosis. At baseline uses CPAP at home, unable to utilize BiPAP given abdominal surgery. Currently saturating 93% on supplemental O2, does drop down to 70% on room air. Does not typically use oxygen at home. Continue to use DuoNeb and budesonide scheduled inhalation. No current indication for steroid use. Suspect that patient may have underlying baseline hypoxia and will likely require supplemental O2 at discharge. (6) Hypertension: Chronic diagnosis, usually on bisoprolol-HCTZ and lisinopril. Both held prior to surgery. Currently with low normal blood pressures in setting of recent medications and post-operative state. (7) Dyslipidemia: Chronically on statin therapy. (8) Asthma: Does not appear acutely exacerbated at present. Chronically on budesonide- fomoterol HFA. 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 (11) COVID-19: Had COVID in early 08/2022 and was hospitalized in [place] briefly needing oxygen. (12) Goiter: Last TSH recorded in our system is from 09/2020, low normal. (13) Gout: Chronically on allopurinol (14) Fever: Likely 2/2 coronavirus infection (NOT COVID) (15) Hyperkalemia: Now resolved (16) Hypernatremia: Was on D5 half NS: Has been discontinued: As patient is becoming hyponatremic. (17) TALON (acute kidney injury): (18) Septic shock: Patient met sepsis criteria: Has elevated white cell count, endorgan dysfunction in the presence of TALON, fever, likely intra-abdominal infection as a source, with possible pneumonia. Blood culture: NTD Urine culture: NTD Lactic acid:0.08 Procalcitonin: 1.35 Initially patient was empirically on Zosyn. Antibiotic coverage has been broadened to vancomycin and meropenem. (19) Anemia: Attestations Medical Necessity Statement*: per primary Critical Care Time: The high probability of a clinically significant, sudden or life threatening deterioration of the patient's [] system(s) required my full and direct attention, intervention and personal management. The critical care time is as shown. This time is in addition to time spent performing any reported procedures but includes the following: [x] Data and vital sign review and interpretation [x] Patient assessment, examination and intervention [x] Documentation [x] Medication orders and management Critical Care Time (min): 60 Coding Level of Care Code Acute Code for Chg Fwd Exam Detailed Diagnoses Status post left hemicolectomy Z90.49 Atrial fibrillation with rapid ventricular response I48.91 Myocardial bridge Q24.5 Polycythemia D75.1 Obstructive sleep apnea G47.33 Hypertension I10 Dyslipidemia E78.5 Asthma J45.30 Asthma complication type: uncomplicated Asthma persistence: persistent Asthma severity: mild Restrictive lung disease due to kyphoscoliosis J98.4; M41.9 Degenerative joint disease (DJD) of lumbar spine M47.816 COVID-19 U07.1 Goiter E04.9 Gout M10.9 Fever R50.9 Hyperkalemia E87.5 Hypernatremia E87.0 TALON (acute kidney injury) N17.9 Septic shock A41.9; R65.21 Anemia D64.9
[2022-10-21] MEDS: HYDROmorphone 1 mg/mL INJ 1 mL 0.5 MG IVP ×2 (14:32→22:39)
[2022-10-21] MEDS: sodium chloride 0.9% 1,000 ML 75 ML IV (14:39)
[2022-10-21] MEDS: dexmedetomidine 400 MCG in sodium chloride 0.9% (100 ml) 100 ML 23.48 MCG IV ×2 (16:44→20:16)
[2022-10-21] MEDS: amiodarone 200 mg Tablet 400 MG PO (16:57)
--- NOTE | 2022-10-21 17:12 | PM.PN ---
Subjective Subjective: Patient seems to be improving significantly. Starting to wake up off of sedation. Not yet extubated. Positive colostomy output. Vitals/I&O/Wt Last Vital Signs Temp 98.7 F 10/21/22 16:46 Pulse 80 10/21/22 16:00 Resp 25 H 10/21/22 16:00 BP 89/50 10/21/22 16:00 Pulse Ox 92 10/21/22 16:00 O2 Del Method 10/21/22 13:20 O2 Flow Rate 5 10/15/22 12:00 FiO2 30 10/21/22 16:00 10/21/22 10/21/22 10/21/22 06:59 14:59 22:59 Intake Total 1254.335 / 2859.157 1652.616 / 1652.616 68.339 / 1720.955 Output Total 1168 / 2720 Balance 86.335 / 987.073 9211.616 / 1652.616 68.339 / 1720.955 Weight last 48 hrs Weight 331 lb 12.8 oz Weight 330 lb 9.6 oz Physical Exam Narrative: GEN: Intubated/sedated Abdomen soft, nondistended, no guarding Incision intact without erythema or exudate wound VAC without leak Ostomy viable and producing Urinary Catheter Management: Orellana: Cath Placed During This Visit: yes, but has since been removed by the nurse Reason for Continuing Indwelling Catheter: Accurate Measurement of Urinary Output in Critically Ill Patients Urinary Catheter Date of Insertion: 10/15/22 Urinary Catheter Time of Insertion: 13:50 Date Urinary Catheter Removed: 10/10/22 Time Urinary Catheter Discontinued: 17:45 Data 10/21/22 05:31 10/21/22 05:31 Micro: Microbiology 10/18/22 15:36 Urine Culture - Final Urine Catheterized A&P Assessment and plan (1) Colon cancer: (2) Status post left hemicolectomy: (3) Hyperkalemia: (4) Atrial fibrillation with RVR: Plan Postoperative day #13 status post left hemicolectomy for colon cancer at the splenic flexure Postoperative day #6 status post resection of colonic anastomosis and end ileostomy formation IV fluids Continue tube feeds at goal as patient has hypoalbuminemia Wound VAC change Saturday Medical management per medicine-appreciate input Attestations Medical Necessity Statement*: Patient requires multiple more nights in the hospital for intensive care following anastomotic leak after left hemicolectomy for colon cancer Coding Level of Care Code Acute Code for Chg Fwd Diagnoses Colon cancer C18.9 Status post left hemicolectomy Z90.49 Hyperkalemia E87.5 Atrial fibrillation with RVR I48.91
[2022-10-21] MEDS: trazodone 150 mg Tablet 300 MG PO (21:10)
[2022-10-22] VITALS (105 sets, daily range): BP systolic 95–138; BP diastolic 53–70; PULSE 59–88; RESP 13–25; TEMP 36.9–37.3; O2SAT 81–100; BMI 40.3
[2022-10-22] MEDS: ipratropium-albuterol 3 mL Neb INHALATION ×2 (03:10→07:59)
[2022-10-22] MEDS: sodium chloride 0.9% 1,000 ML 75 ML IV ×2 (03:13→16:48)
[2022-10-22 04:56] LABS: Basophils % 0.3 %; Eosinophils # 0.2 10^3/uL (0.0-0.8); Eosinophils % 1.8 %; Hemoglobin 8.5 g/dL (11.7-16.6); Lymphocytes % 9.6 %; Mean Corpuscular HGB Conc 30.4 g/dL (30.0-36.0); Mean Corpuscular Hemoglobin 30.7 pg (28.0-34.0); Mean Corpuscular Volume 101.1 fl (80-94); Mean Platelet Volume 10.2 fL (7.4-10.4); Monocytes # 1.4 10^3/uL (0.2-0.9); Neutrophils # 6.39 10^3/uL (1.8-7.7); Neutrophils % 62.2 %; Nucleated Red Blood Cells % 0 %; Platelet Count 538 10^3/cmm (130-400); Red Blood Count 2.77 10^6/uL (4.1-5.3); Red Cell Distribution Width 16.6 % (12.1-15.1); White Blood Count 10.3 10^3/uL (4.0-10.0)
[2022-10-22 05:02] LABS: Slide Review Slide Review Perform
[2022-10-22 05:12] LABS: Anion Gap 13.1 (5-19); Blood Urea Nitrogen 41 mg/dL (8-23); Calcium 8.3 mg/dL (8.5-10.5); Carbon Dioxide 22 mmol/L (22-29); Chloride 110 mmol/L (98-107); Glomerular Filtration Rate 35.5 mL/min (90-130); Glucose 131 mg/dL (65-115); Osmolality Calculated 304 mOsm/kg (285-295); Potassium 4.1 mmol/L (3.5-5.1); Sodium 141 mmol/L (136-145)
[2022-10-22] MEDS: dexmedetomidine 400 MCG in sodium chloride 0.9% (100 ml) 100 ML 31.3 MCG IV ×4 (05:54→16:54)
[2022-10-22] MEDS: amiodarone 200 mg Tablet 400 MG PO ×2 (07:49→17:28)
[2022-10-22] MEDS: chlorhexidine gluconate 4% Btl 118 mL 1 APPLIC TOPICAL (07:49)
[2022-10-22] MEDS: meropenem 1,000 MG in sodium chloride 0.9% (plus) 50 ML 100 MG IV ×2 (07:50→20:53)
[2022-10-22] MEDS: pantoprazole 40 mg SDV IVP (07:50)
[2022-10-22] MEDS: budesonide 0.5 mg/2 mL Neb INHALATION ×2 (07:59→20:03)
[2022-10-22] MEDS: vancomycin 1,500 MG/300 ML PIGGYBACK 200 MG IV (08:57)
[2022-10-22] MEDS: enoxaparin 40 mg/0.4 mL Syringe SUBCUT (08:59)
[2022-10-22] MEDS: HYDROmorphone 1 mg/mL INJ 1 mL 0.5 MG IVP ×3 (10:15→20:05)
[2022-10-22] MEDS: fentaNYL 50 mcg/mL INJ 2mL 25 MCG IVP (11:26)
[2022-10-22] MEDS: iron sucrose 200 MG in sodium chloride 0.9% (100 ml) 100 ML 220 MG IV (11:26)
[2022-10-22 12:12] LABS: Vitamin B12 1054 pg/mL (232-1245)
[2022-10-22 12:16] LABS: Folate Level 12.3 ng/mL (4.5-32.2)
[2022-10-22] MEDS: albuterol 2.5 mg/3 mL Neb INHALATION ×2 (14:28→20:03)
[2022-10-22] MEDS: ipratropium 0.5 mg/2.5 mL Neb INHALATION ×2 (14:28→20:03)
--- NOTE | 2022-10-22 14:30 | P.PN_ITS ---
Subjective Subjective: Starting to wake up off of sedation. Not yet extubated. Positive colostomy output. Vitals/I&O/Wt Last Vital Signs Temp 98.5 F 10/22/22 11:52 Pulse 73 10/22/22 12:00 Resp 13 10/22/22 11:49 BP 115/63 10/22/22 12:00 Pulse Ox 97 10/22/22 12:00 O2 Del Method 10/22/22 07:59 O2 Flow Rate 5 10/15/22 12:00 FiO2 30 10/22/22 11:49 10/21/22 10/22/22 10/22/22 22:59 06:59 14:59 Intake Total 693.584 / 2346.200 1809.088 / 4155.288 838.613 / 838.613 Output Total 1270 / 1270 1560 / 2830 Balance -576.416 / 1076.200 249.088 / 1325.288 838.613 / 838.613 Weight last 48 hrs Weight 331 lb Weight 331 lb 12.8 oz Physical Exam Narrative: GEN: Intubated/sedated Abdomen soft, nondistended, no guarding There is some dehiscence of his midline laparotomy incision. Wound VAC was changed today. No bowel seen. Wound VAC changed with white sponge underneath black foam Ostomy viable and producing Urinary Catheter Management: Orellana: Cath Placed During This Visit: yes, but has since been removed by the nurse Reason for Continuing Indwelling Catheter: Accurate Measurement of Urinary Output in Critically Ill Patients Urinary Catheter Date of Insertion: 10/15/22 Urinary Catheter Time of Insertion: 13:50 Date Urinary Catheter Removed: 10/10/22 Time Urinary Catheter Discontinued: 17:45 Data 10/22/22 02:48 10/22/22 02:48 Micro: Microbiology 10/18/22 15:36 Urine Culture - Final Urine Catheterized A&P Assessment and plan (1) Colon cancer: (2) Status post left hemicolectomy: (3) Hyperkalemia: (4) Atrial fibrillation with RVR: Plan Postoperative day #14 status post left hemicolectomy for colon cancer at the splenic flexure Postoperative day #7 status post resection of colonic anastomosis and end ile ostomy formation IV fluids Continue tube feeds at goal as patient has hypoalbuminemia Wound VAC change Saturday-I will keep a close eye out for propagation of the dehiscence and enteric cutaneous fistulas. Attempting closure via wound VAC Medical management per medicine-appreciate input Attestations Medical Necessity Statement*: Patient requires multiple more nights in the hospital for intensive care following anastomotic leak after left hemicolectomy for colon cancer Coding Level of Care Code Acute Code for Chg Fwd Diagnoses Colon cancer C18.9 Status post left hemicolectomy Z90.49 Hyperkalemia E87.5 Atrial fibrillation with RVR I48.91
--- NOTE | 2022-10-22 17:18 | P.PN_ITS ---
Subjective Subjective: Hospital course, labs appreciated seen with surgeon at bedside. Patient is undergoing abdominal wound VAC dressing changes. On pressure support of 14. On Precedex. No fentanyl. Tube feeds stopped last night. Patient is minimally responsive currently. Otherwise has remained hemodynamically stable and afebrile. Vitals/I&O/Wt Last Vital Signs Temp 98.5 F 10/22/22 11:52 Pulse 77 10/22/22 16:30 Resp 23 H 10/22/22 14:32 BP 116/62 10/22/22 16:30 Pulse Ox 96 10/22/22 16:30 O2 Del Method 10/22/22 14:29 O2 Flow Rate 5 10/15/22 12:00 FiO2 30 10/22/22 14:32 10/22/22 10/22/22 10/22/22 06:59 14:59 22:59 Intake Total 1809.088 / 4155.288 838.613 / 494.974 9109 / 1942.613 Output Total 1560 / 2830 Balance 249.088 / 1325.288 838.613 / 411.196 3693 / 1942.613 Weight last 48 hrs Weight 150.139 kg Weight 150.502 kg Physical Exam Narrative: General: Intubated, not sedated, minimally responsive. Not following commands HEENT: PERRLA, pupils bilaterally equal and reactive Chest: Normal vesicular breath sounds, no added sounds, equal good air entry bilaterally CVS: S1-S2 regular, no murmurs, no tachycardia, no gallops, no rubs Abdomen: Distended, surgical drains present, central surgical scar with wound VAC present. Neuro: Intubated, sedated Urinary Catheter Management: Orellana: Cath Placed During This Visit: yes, but has since been removed by the nurse Reason for Continuing Indwelling Catheter: Accurate Measurement of Urinary Output in Critically Ill Patients Urinary Catheter Date of Insertion: 10/15/22 Urinary Catheter Time of Insertion: 13:50 Date Urinary Catheter Removed: 10/10/22 Time Urinary Catheter Discontinued: 17:45 Data 10/22/22 02:48 10/22/22 02:48 A&P Assessment and plan (1) Septic shock: Patient met sepsis criteria: Has elevated white cell count, endorgan dysfunction in the presence of TALON, fever, likely intra-abdominal infection as a source, with possible pneumonia. Now resolved. Keep mean artery pressure 65, saturation over 90%. Patient on vancomycin and meropenem for a number of days. We will plan to continue IV antibiotics for a week postoperatively. Last day on 10/25. Check MRSA swab. If negative will stop vancomycin. 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 Patient started complaining of severe abdominal pain on 10/15. CT abdomen and pelvis with contrast showed: Large amount of free air within the abdomen and pelvis: surgery is of the opinion:?That there is anastomotic leak with moderate to large dehiscence at the anastomosis. Repeat CT abdomen and pelvis on: 10/18: No residual free air is identified. Small amount of fluid in the central mesentery and mesenteric edema. Overall the amount of fluid has improved since the exam of 10/15/2022. status post resection of colonic anastomosis and end ileostomy formation (3) Atrial fibrillation with rapid ventricular response: In a patient with known chronic atrial fibrillation, on bisoprolol in combination with HCTZ as only rate controlling medication at home. Currently rate controlled with amiodarone 400 mg twice daily. 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 Has myocardial perfusion study on 10/05/22. Ischemic work-up was negative. Currently troponin series additionally negative. No acute ST-T wave changes to suggest acute coronary syndrome. Take Xarelto as an outpatient for anticoagulation. Will discuss with surgery further regarding restarting complete anticoagulation. For now continue with prophylactic dose. (4) TALON (acute kidney injury): Baseline creatinine normal to 1. Currently 1.9. Most likely in setting of bowel necrosis requiring open laparotomy. Medical reconciliation done for nephrotoxic drugs. Monitor BMP daily. Maintain Orellana catheter. Strict input output charting. Overall 125 cc of fluid hydration per hour. 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 No current complaints of chest pain though need to try to maintain rate control. Had myocardial perfusion imaging on October 05, 2022 that did not show evidence of ischemia and revealed a normal ejection fraction. (6) Polycythemia: Secondary, has been managed with blood donation periodically. Preoperative hemoglobin same. (7) Obstructive sleep apnea: Not currently using cpap at home due to malfunction of machine. ABG with evidence of hypercapnic hypoxic respiratory failure. Known restrictive lung disease and asbestosis. At baseline uses CPAP at home, unable to utilize BiPAP given abdominal surgery. Currently saturating 93% on supplemental O2, does drop down to 70% on room air. Does not typically use oxygen at home. Continue to use DuoNeb and budesonide scheduled inhalation. No current indication for steroid use. Suspect that patient may have underlying baseline hypoxia and will likely require supplemental O2 at discharge. (8) Hypertension: Chronic diagnosis, usually on bisoprolol-HCTZ and lisinopril. Both held prior to surgery. Currently with low normal blood pressures in setting of recent medications and post-operative state. (9) Dyslipidemia: Chronically on statin therapy. (10) Asthma: Does not appear acutely exacerbated at present. Chronically on budesonide- fomoterol HFA. 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 (13) COVID-19: Had COVID in early 08/2022 and was hospitalized in [place] briefly needing oxygen. (14) Goiter: Last TSH recorded in our system is from 09/2020, low normal. (15) Gout: Chronically on allopurinol (16) Fever: Likely 2/2 coronavirus infection (NOT COVID) (17) Hyperkalemia: Now resolved (18) Hypernatremia: Resolved. (19) Anemia: Plan Plan for the day: Start on tube feeds with goal up to 60 cc/h. Free water flushes 100 cc every 6 hourly. Start on TPN for better nutrition for wound healing. Target rate 50 cc/h. Continue normal saline at 75 cc/h. Start on fentanyl. Continue with Precedex. Continuing weaning trial. We will plan to come down on pressure support. Plan for possible extubation within next 48 hours depending on clinical improvement. Full code. SCDs for DVT prophylaxis. Tube feeds, TPN for nutrition. Fentanyl, Dilaudid for pain control. Discharge planning: Plan to discharge to SNF versus [facility] depending on clinical improvement within next 24 to 48 hours. Case management alerted. Attestations Medical Necessity Statement*: Requires further hospitalization for management of septic shock in setting of bowel necrosis, anastomosis dehiscence in setting of recent post hemicolectomy, acute kidney injury Critical Care Time: The high probability of a clinically significant, sudden or life threatening deterioration of the patient's [postoperative care, ID, renal, pulmonary, neurological] system(s) required my full and direct attention, intervention and personal management. The critical care time is as shown. This time is in addition to time spent performing any reported procedures but includes the following: [x] Data and vital sign review and interpretation [x] Patient assessment, examination and intervention [x] Documentation [x] Medication orders and management Critical Care Time (min): 60 Coding Level of Care Code Acute Code for Chg Fwd Diagnoses Septic shock A41.9; R65.21 Status post left hemicolectomy Z90.49 Atrial fibrillation with rapid ventricular response I48.91 TALON (acute kidney injury) N17.9 Myocardial bridge Q24.5 Polycythemia D75.1 Obstructive sleep apnea G47.33 Hypertension I10 Dyslipidemia E78.5 Asthma J45.30 Asthma severity: mild Asthma persistence: persistent Asthma complication type: uncomplicated Restrictive lung disease due to kyphoscoliosis J98.4; M41.9 Degenerative joint disease (DJD) of lumbar spine M47.816 COVID-19 U07.1 Goiter E04.9 Gout M10.9 Fever R50.9 Hyperkalemia E87.5 Hypernatremia E87.0 Anemia D64.9
[2022-10-22] MEDS: trazodone 150 mg Tablet 300 MG PO (20:54)
[2022-10-23] VITALS (102 sets, daily range): BP systolic 96–161; BP diastolic 54–81; PULSE 57–91; RESP 16–29; TEMP 37.1–37.4; O2SAT 79–100; BMI 40.3
[2022-10-23] MEDS: ipratropium 0.5 mg/2.5 mL Neb INHALATION ×4 (02:36→20:02)
[2022-10-23] MEDS: albuterol 2.5 mg/3 mL Neb INHALATION ×4 (02:36→20:02)
[2022-10-23] MEDS: HYDROmorphone 1 mg/mL INJ 1 mL 0.5 MG IVP ×2 (03:36→13:28)
[2022-10-23 03:58] LABS: Basophils % 0.3 %; Eosinophils # 0.1 10^3/uL (0.0-0.8); Eosinophils % 1.5 %; Hematocrit 27.9 % (42.0-52.0); Hemoglobin 8.4 g/dL (11.7-16.6); Lymphocytes # 1.2 10^3/uL (0.8-4.8); Mean Corpuscular HGB Conc 30.1 g/dL (30.0-36.0); Mean Corpuscular Hemoglobin 30.7 pg (28.0-34.0); Mean Corpuscular Volume 101.8 fl (80-94); Mean Platelet Volume 9.9 fL (7.4-10.4); Monocytes # 1.3 10^3/uL (0.2-0.9); Monocytes % 13.6 %; Neutrophils # 5.74 10^3/uL (1.8-7.7); Neutrophils % 60.3 %; Nucleated Red Blood Cells % 0 %; Platelet Count 540 10^3/cmm (130-400); Red Blood Count 2.74 10^6/uL (4.1-5.3); Red Cell Distribution Width 16.7 % (12.1-15.1); White Blood Count 9.5 10^3/uL (4.0-10.0)
[2022-10-23 04:20] LABS: Alanine Aminotransferase 18 U/L (0-41); Alkaline Phosphatase 50 U/L (40-130); Anion Gap 11.4 (5-19); Aspartate Amino Transferase 21 U/L (0-40); Blood Urea Nitrogen 37 mg/dL (8-23); Calcium 8.7 mg/dL (8.5-10.5); Carbon Dioxide 23 mmol/L (22-29); Chloride 114 mmol/L (98-107); Glomerular Filtration Rate 43.3 mL/min (90-130); Glucose 124 mg/dL (65-115); Osmolality Calculated 308 mOsm/kg (285-295); Potassium 4.4 mmol/L (3.5-5.1); Sodium 144 mmol/L (136-145); Total Bilirubin 0.4 mg/dL (0.15-1.2)
[2022-10-23] MEDS: sodium chloride 0.9% 1,000 ML 75 ML IV (04:48)
--- NOTE | 2022-10-23 05:13 | PC.NURSE ---
Addendum entered by Robin Hernandez RN 10/24/22 06:23: Highest NG residual for the evening was 475, however this was after a recent 100ml flush. Patient remained <500 throughout shift with good ostomy output. Original Note: Patient has been able to follow commands throughout this nurse's shift. Reports of pain have been treated with dilaudid. Residuals have continued to climb throughout shift but remain under 300ml. Feedings currently running at 40ml/hr. Ostomy bag has scant bloody drainage as compared to previous shift with good output. BP remain stable off of levophed. Optifoam applied to left buttocks.
[2022-10-23 05:59] LABS: ABG PH Result 7.36 (7.35-7.45); Base Excess ABG -3.1 mmol/L (-2.0-2.0); Blood Gas Operator Identificat JB; HCO3 ABG 22.1 mmol/L (22-26); Oxygen Saturation ABG 85.6; PO2 ABG 50.4 mmHg (80.0-100.0)
[2022-10-23 06:00] LABS: Blood Gas Allen Test POS; Blood Gas Drawn By BISJE; Blood Gas Sample Site RIGHT RADIAL; Blood Gas Sample Type ARTERIAL; Blood Gas Vent Mode VC/AC; Oxygen Device VENT
[2022-10-23 06:01] LABS: Alveolar-Arterial Oxygen Gradi 71.7 mmHg (5-10); Arterial Blood Gas Hematocrit 33.1 % (42-52); Carboxyhemoglobin 1.7 %THgb (0.4-20.1); HGB O2 Sat 83.7 % (95-100); Ionized Calcium Level - ABG 1.3 mmol/L (1.1-1.4); Methemoglobin 0.5 % (0.4-1.5); Total Hemoglobin 10.8 g/dL (14-18)
[2022-10-23] MEDS: budesonide 0.5 mg/2 mL Neb INHALATION ×2 (08:14→20:02)
[2022-10-23] MEDS: pantoprazole 40 mg SDV IVP (09:54)
[2022-10-23] MEDS: amiodarone 200 mg Tablet 400 MG PO ×2 (09:54→17:08)
[2022-10-23] MEDS: meropenem 1,000 MG in sodium chloride 0.9% (plus) 50 ML 100 MG IV ×2 (09:54→21:35)
[2022-10-23] MEDS: chlorhexidine gluconate 4% Btl 118 mL 1 APPLIC TOPICAL (09:55)
[2022-10-23] MEDS: vancomycin 1,500 MG/300 ML PIGGYBACK 200 MG IV (09:56)
--- NOTE | 2022-10-23 10:49 | PC.SOCIAL ---
IMM Update pg 2 of IMM not updated w/ patient as he is intubated. Copy left @ bedside.
--- NOTE | 2022-10-23 11:20 | PM.PN ---
Subjective Subjective: Not yet extubated. Positive colostomy output. Wound VAC changed yesterday. Currently on TPN and tube feeds at 40 with a goal of 60 Vitals/I&O/Wt Last Vital Signs Temp 99.0 F 10/23/22 08:30 Pulse 79 10/23/22 10:45 Resp 16 10/23/22 10:05 BP 118/58 10/23/22 10:45 Pulse Ox 96 10/23/22 10:45 O2 Del Method 10/23/22 08:14 O2 Flow Rate 5 10/15/22 12:00 FiO2 30 10/23/22 10:05 10/22/22 10/23/22 10/23/22 22:59 06:59 14:59 Intake Total 1398.00 / 2236.613 2196.220 / 4432.833 210.302 / 210.302 Output Total 1293 / 1293 1195 / 2488 Balance 105.00 / 591.155 3747.220 / 1944.833 210.302 / 210.302 Weight last 48 hrs Weight 331 lb Weight 331 lb Physical Exam Narrative: GEN: Intubated/sedated Abdomen soft, nondistended, no guarding Wound VAC in place with appropriate output. No erythema or exudate Ostomy viable and producing Urinary Catheter Management: Orellana: Cath Placed During This Visit: yes, but has since been removed by the nurse Reason for Continuing Indwelling Catheter: Accurate Measurement of Urinary Output in Critically Ill Patients Urinary Catheter Date of Insertion: 10/15/22 Urinary Catheter Time of Insertion: 13:50 Date Urinary Catheter Removed: 10/10/22 Time Urinary Catheter Discontinued: 17:45 Data 10/23/22 03:27 10/23/22 03:27 A&P Assessment and plan (1) Colon cancer: (2) Status post left hemicolectomy: Plan Postoperative day #15 status post left hemicolectomy for colon cancer at the splenic flexure Postoperative day #8 status post resection of colonic anastomosis and end ileostomy formation IV fluids Continue tube feeds at goal Wound VAC change Saturday-I will keep a close eye out for propagation of the dehiscence and enteric cutaneous fistulas. Attempting closure via wound VAC Hospitalist following-appreciate input Attestations Medical Necessity Statement*: Patient requires multiple more nights in the hospital for intensive care following anastomotic leak after left hemicolectomy for colon cancer Coding Level of Care Code Acute Code for Chg Fwd Diagnoses Colon cancer C18.9 Status post left hemicolectomy Z90.49
--- NOTE | 2022-10-23 12:03 | PC.CHAP ---
Pastoral Care Encounter/Spiritual Assessment Type of Contact [] Declined head knitting machine fixer visit [] Patient/Family/Request visit [] Outpatient visit [] Follow-up visit [] Physician referral [] Code/Alert [x] Routine visit [] Staff referral [] Actively dying [x] Patient sleeping [] Family support [] [] Out of room [] Palliative care [] [] Receiving care in room [] Pre-surgical visit [] Trauma [] Long length of stay [x] ICU visit [x] Other: vent Relational/Emotional Strength [] Patient feels connected with others/family/visitors/staff [] Distress [] Loneliness/isolation [] Abandonment Spirituality of Patient [] Person of Maryanne [] Attends Congregation of their Maryanne [] Believes in Prayer [] Reads Bible or Anglican materials [] There are Spiritual issues to be addressed Editor News 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 [x] Prayer [] Active listening [] Non-anxious presence [] Spiritual/emotional support [] Crisis/trauma care [] Spiritual counseling [] Bereavement support [] Provided bereavement packet [] Provided Bible/devotional materials [] Provided toy/stuffed animal, coloring book to patient or family member [] Provided Communion [] Anointing/[place] [] Salvation [x] Completed spiritual assessment [] Other: Impact on Illness or Injury [] Angry [] Fearful [] Anxious [] Often cries [] Exhaustion [] Unable to work [] Unable to attend jainism [] Unable to walk/stand [] Unable to read [] Unable to drive [] Unable to eat/drink [] Unable to sleep [] Unable to be with family [] Patient intubated [] Other: PT opened eyes... responded to prayer Summary Time spent with patient
[2022-10-23] MEDS: iron sucrose 200 MG in sodium chloride 0.9% (100 ml) 100 ML 220 MG IV (13:23)
[2022-10-23 15:28] LABS: ABG PCO2 40.6 mmHg (35-45); ABG PH Result 7.34 (7.35-7.45); Arterial Blood Gas Hematocrit 26.6 % (42-52); Base Excess ABG -3.4 mmol/L (-2.0-2.0); Blood Gas Allen Test Pos; Blood Gas Operator Identificat MONRO; Blood Gas Sample Site Radial, left; Blood Gas Sample Type Arterial; Carboxyhemoglobin 1.7 %THgb (0.4-20.1); Fractionated Inspired Oxygen 0.3 %; HCO3 ABG 22.1 mmol/L (22-26); HGB O2 Sat 93.1 % (95-100); Ionized Calcium Level - ABG 1.3 mmol/L (1.1-1.4); Methemoglobin 0.5 % (0.4-1.5); Oxygen Device VENT; Oxygen Saturation ABG 95.2; PO2 ABG 72.7 mmHg (80.0-100.0); Potassium Level - ABG 4.1 mmol/L (3.5-5.0); Total Hemoglobin 8.7 g/dL (14-18)
--- NOTE | 2022-10-23 15:37 | P.PN_ITS ---
Subjective Subjective: Seen multiple times during the day.. No acute events overnight. Patient has remained hemodynamically stable and afebrile. Currently on 10 of pressure support. Tidal volumes achieved on the ventilator slightly on the lower side up to 350. PEEP of 5. Maintaining saturation. Repeat ABG showed stable blood gas. Documented urine output of around 2500 in last 24 hours. Tube feeds put up to 60 cc as per surgical recommendations in morning. Tolerating TPN as well. Vitals/I&O/Wt Last Vital Signs Temp 99.0 F 10/23/22 08:30 Pulse 68 10/23/22 14:00 Resp 29 H 10/23/22 15:34 BP 161/81 10/23/22 14:00 Pulse Ox 95 10/23/22 15:34 O2 Del Method 10/23/22 14:00 O2 Flow Rate 5 10/15/22 12:00 FiO2 30 10/23/22 15:34 10/23/22 10/23/22 10/23/22 06:59 14:59 22:59 Intake Total 2196.220 / 4432.833 720.302 / 720.302 807.5 / 1527.802 Output Total 1195 / 2488 90 / 90 Balance 1001.220 / 1944.833 630.302 / 630.302 807.5 / 1437.802 Weight last 48 hrs Weight 150.139 kg Weight 150.139 kg Physical Exam Narrative: General: Intubated, not sedated, minimally responsive. Not following commands HEENT: PERRLA, pupils bilaterally equal and reactive Chest: Normal vesicular breath sounds, no added sounds, equal good air entry bilaterally CVS: S1-S2 regular, no murmurs, no tachycardia, no gallops, no rubs Abdomen: Distended, surgical drains present, central surgical scar with wound VAC present. Neuro: Intubated, sedated Urinary Catheter Management: Orellana: Cath Placed During This Visit: yes, but has since been removed by the nurse Reason for Continuing Indwelling Catheter: Accurate Measurement of Urinary Output in Critically Ill Patients Urinary Catheter Date of Insertion: 10/15/22 Urinary Catheter Time of Insertion: 13:50 Date Urinary Catheter Removed: 10/10/22 Time Urinary Catheter Discontinued: 17:45 Data 10/23/22 03:27 10/23/22 03:27 Micro: Microbiology 10/22/22 12:45 MRSA Culture - Final Nose A&P Assessment and plan (1) Septic shock: Patient met sepsis criteria: Has elevated white cell count, endorgan dysfunction in the presence of TALON, fever, likely intra-abdominal infection as a source, with possible pneumonia. Now resolved. Keep mean artery pressure 65, saturation over 90%. Patient on vancomycin and meropenem for a number of days. We will plan to continue IV antibiotics for a week postoperatively. Last day on 10/25. Check MRSA swab. If negative will stop vancomycin. 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 Patient started complaining of severe abdominal pain on 10/15. CT abdomen and pelvis with contrast showed: Large amount of free air within the abdomen and pelvis: surgery is of the opinion:?That there is anastomotic leak with moderate to large dehiscence at the anastomosis. Repeat CT abdomen and pelvis on: 10/18: No residual free air is identified. Small amount of fluid in the central mesentery and mesenteric edema. Overall the amount of fluid has improved since the exam of 10/15/2022. status post resection of colonic anastomosis and end ileostomy formation (3) Atrial fibrillation with rapid ventricular response: In a patient with known chronic atrial fibrillation, on bisoprolol in combination with HCTZ as only rate controlling medication at home. Currently rate controlled with amiodarone 400 mg twice daily. 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 Has myocardial perfusion study on 10/05/22. Ischemic work-up was negative. Currently troponin series additionally negative. No acute ST-T wave changes to suggest acute coronary syndrome. Take Xarelto as an outpatient for anticoagulation. Will discuss with surgery further regarding restarting complete anticoagulation. For now continue with prophylactic dose. (4) TALON (acute kidney injury): Baseline creatinine normal to 1. Currently 1.9. Most likely in setting of bowel necrosis requiring open laparotomy. Medical reconciliation done for nephrotoxic drugs. Monitor BMP daily. Maintain Orellana catheter. Strict input output charting. Overall 125 cc of fluid hydration per hour. 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 No current complaints of chest pain though need to try to maintain rate control. Had myocardial perfusion imaging on October 05, 2022 that did not show evidence of ischemia and revealed a normal ejection fraction. (6) Polycythemia: Secondary, has been managed with blood donation periodically. Preoperative hemoglobin same. (7) Obstructive sleep apnea: Not currently using cpap at home due to malfunction of machine. ABG with evidence of hypercapnic hypoxic respiratory failure. Known restrictive lung disease and asbestosis. At baseline uses CPAP at home, unable to utilize BiPAP given abdominal surgery. Currently saturating 93% on supplemental O2, does drop down to 70% on room air. Does not typically use oxygen at home. Continue to use DuoNeb and budesonide scheduled inhalation. No current indication for steroid use. Suspect that patient may have underlying baseline hypoxia and will likely require supplemental O2 at discharge. (8) Hypertension: Chronic diagnosis, usually on bisoprolol-HCTZ and lisinopril. Both held prior to surgery. Currently with low normal blood pressures in setting of recent medications and post-operative state. (9) Dyslipidemia: Chronically on statin therapy. (10) Asthma: Does not appear acutely exacerbated at present. Chronically on budesonide- fomoterol HFA. 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 (13) COVID-19: Had COVID in early 08/2022 and was hospitalized in [place] briefly needing oxygen. (14) Goiter: Last TSH recorded in our system is from 09/2020, low normal. (15) Gout: Chronically on allopurinol (16) Fever: Likely 2/2 coronavirus infection (NOT COVID) (17) Hyperkalemia: Now resolved (18) Hypernatremia: Resolved. (19) Anemia: Plan Plan for the day: If patient is able to tolerate tube feeds at goal rate of 60 cc an hour we will stop the TPN. Switch the fluid from NS to D5 NS at 100 cc/h. Continue with Precedex and fentanyl. We will plan to wean down Precedex while continue fentanyl for patient to be more awake for further weaning trial. Continue with weaning trial. We will gradually come down on pressure support and plan for extubation. Currently doing okay on pressure support of 8. Patient has low tidal volumes on pressure support of 8 most likely secondary to poor compliance in setting of surgical abdomen. We will have to continue with slow weaning trials. Plan for repeat ABG on pressure support of 8 later in the day today. Will put on complete support overnight and start with weaning trial on pressure support of 8 in a.m. tomorrow. Monitor intake and output. Creatinine improving to 1.6 today. Full code. SCDs for DVT prophylaxis. Tube feeds, TPN for nutrition. Fentanyl, Dilaudid for pain control. Discharge planning: Plan to discharge to SNF for wound care and further rehabitation once patient is medically and surgically stable. [facility] will be difficult as they would want patient to be intubated for at least 21 days prior to transfer or with a trach. Currently plan is to possible extubation and then transfer to SNF for further rehabitation. Decide as per clinical development. Thank you for involving us in care of Mr. Voss. We will continue to follow. Please reach out to us with any questions. Care discussed in detail with patient's RN and primary team. Attestations Medical Necessity Statement*: Requires further hospitalization for management of post left hemicolectomy care, respiratory failure, acute kidney injury while patient is on mechanical ventilation and further weaning trials are done. Critical Care Time: The high probability of a clinically significant, sudden or life threatening deterioration of the patient's [surgical, pulmonary, neurological, GI, renal] system(s) required my full and direct attention, intervention and personal management. The critical care time is as shown. This time is in addition to time spent performing any reported procedures but includes the following: [x] Data and vital sign review and interpretation [x] Patient assessment, examination and intervention [x] Documentation [x] Medication orders and management Critical Care Time (min): 70 Coding Level of Care Code Acute Code for Chg Fwd Diagnoses Septic shock A41.9; R65.21 Status post left hemicolectomy Z90.49 Atrial fibrillation with rapid ventricular response I48.91 TALON (acute kidney injury) N17.9 Myocardial bridge Q24.5 Polycythemia D75.1 Obstructive sleep apnea G47.33 Hypertension I10 Dyslipidemia E78.5 Asthma J45.30 Asthma complication type: uncomplicated Asthma persistence: persistent Asthma severity: mild Restrictive lung disease due to kyphoscoliosis J98.4; M41.9 Degenerative joint disease (DJD) of lumbar spine M47.816 COVID-19 U07.1 Goiter E04.9 Gout M10.9 Fever R50.9 Hyperkalemia E87.5 Hypernatremia E87.0 Anemia D64.9
[2022-10-23] MEDS: dextrose 5%-sod chloride 0.45% 1,000 ML 100 ML IV (16:13)
[2022-10-23] MEDS: trazodone 150 mg Tablet 300 MG PO (21:35)
[2022-10-24] VITALS (105 sets, daily range): BP systolic 100–160; BP diastolic 52–82; PULSE 62–99; RESP 18–30; TEMP 36.9–37.8; O2SAT 88–100; BMI 41.3
[2022-10-24] MEDS: dextrose 5%-sod chloride 0.45% 1,000 ML 100 ML IV ×3 (02:21→21:36)
[2022-10-24 03:13] LABS: Basophils # 0.1 10^3/uL (0.0-0.1); Basophils % 0.6 %; Eosinophils # 0.1 10^3/uL (0.0-0.8); Eosinophils % 1.4 %; Hematocrit 26.9 % (42.0-52.0); Hemoglobin 8.1 g/dL (11.7-16.6); Lymphocytes # 0.9 10^3/uL (0.8-4.8); Lymphocytes % 10.3 %; Mean Corpuscular HGB Conc 30.1 g/dL (30.0-36.0); Mean Corpuscular Hemoglobin 31.2 pg (28.0-34.0); Mean Corpuscular Volume 103.5 fl (80-94); Mean Platelet Volume 9.6 fL (7.4-10.4); Monocytes % 11.8 %; Neutrophils # 5.72 10^3/uL (1.8-7.7); Neutrophils % 67.1 %; Nucleated Red Blood Cells % 0 %; Platelet Count 526 10^3/cmm (130-400); Red Cell Distribution Width 16.8 % (12.1-15.1); White Blood Count 8.5 10^3/uL (4.0-10.0)
[2022-10-24] MEDS: HYDROmorphone 1 mg/mL INJ 1 mL 0.5 MG IVP ×2 (03:35→19:16)
[2022-10-24 03:38] LABS: Alanine Aminotransferase 19 U/L (0-41); Albumin Level 3.1 g/dL (3.5-5.2); Alkaline Phosphatase 76 U/L (40-130); Anion Gap 13.5 (5-19); Aspartate Amino Transferase 26 U/L (0-40); Blood Urea Nitrogen 37 mg/dL (8-23); Calcium 8.6 mg/dL (8.5-10.5); Carbon Dioxide 22 mmol/L (22-29); Chloride 115 mmol/L (98-107); Globulin 2.8 g/dL (1.3-4.6); Glomerular Filtration Rate 46.7 mL/min (90-130); Glucose 141 mg/dL (65-115); Osmolality Calculated 313 mOsm/kg (285-295); Potassium 4.5 mmol/L (3.5-5.1); Sodium 146 mmol/L (136-145); Total Bilirubin 0.3 mg/dL (0.15-1.2); Total Protein 5.9 g/dL (6.6-8.7)
[2022-10-24] MEDS: pantoprazole 40 mg SDV IVP (08:28)
[2022-10-24] MEDS: meropenem 1,000 MG in sodium chloride 0.9% (plus) 50 ML 100 MG IV ×2 (08:28→20:26)
[2022-10-24] MEDS: amiodarone 200 mg Tablet 400 MG PO ×2 (08:28→18:05)
--- NOTE | 2022-10-24 08:30 | PC.NURSE ---
New Orders Received Dr. Soares at bedside, gave verbal orders to admin Dilaudid 1mg IVP ONCE for wound vac dressing change.
[2022-10-24] MEDS: HYDROmorphone 1 mg/mL INJ 1 mL IVP (08:40)
[2022-10-24] MEDS: chlorhexidine gluconate 4% Btl 118 mL 1 APPLIC TOPICAL (09:10)
[2022-10-24] MEDS: budesonide 0.5 mg/2 mL Neb INHALATION ×2 (09:13→20:17)
[2022-10-24] MEDS: ipratropium 0.5 mg/2.5 mL Neb INHALATION ×3 (09:13→20:17)
[2022-10-24] MEDS: albuterol 2.5 mg/3 mL Neb INHALATION ×3 (09:13→20:17)
[2022-10-24 10:04] LABS: Vancomycin Trough 16.2 ug/mL (10-15)
--- NOTE | 2022-10-24 10:15 | PC.NURSE ---
New Orders Received Dr. Hurt at bedside, gave verbal orders to discontinue Albumin.
[2022-10-24] MEDS: vancomycin 1,500 MG/300 ML PIGGYBACK 200 MG IV (10:28)
[2022-10-24] MEDS: iron sucrose 200 MG in sodium chloride 0.9% (100 ml) 100 ML 220 MG IV (11:21)
--- NOTE | 2022-10-24 11:36 | PM.PN ---
Subjective Subjective: Overnight patient was placed on SIMV mode because of tachypnea and mild desaturation. Today morning he has remained on MMB mode as he was undergoing wound VAC changes. During my examination he has been turned back onto pressure support which he seems to be tolerating okay. Vitals/I&O/Wt Last Vital Signs Temp 99.3 F 10/24/22 09:30 Pulse 86 10/24/22 10:00 Resp 23 H 10/24/22 11:20 BP 117/62 10/24/22 10:00 Pulse Ox 94 10/24/22 11:20 O2 Del Method 10/24/22 10:00 O2 Flow Rate 30 10/24/22 10:00 FiO2 30 10/24/22 11:20 10/23/22 10/24/22 10/24/22 22:59 06:59 14:59 Intake Total 2381.222 / 3101.524 2140.816 / 5242.340 276.976 / 276.976 Output Total 1475 / 1565 1920 / 3485 Balance 906.222 / 1536.524 220.816 / 1757.340 276.976 / 276.976 Weight last 48 hrs Weight 154.221 kg Weight 150.139 kg Physical Exam Narrative: General: Intubated, not sedated, minimally responsive. following commands HEENT: PERRLA, pupils bilaterally equal and reactive Chest: Normal vesicular breath sounds, no added sounds, equal good air entry bilaterally CVS: S1-S2 regular, no murmurs, no tachycardia, no gallops, no rubs Abdomen: Distended, surgical drains present, central surgical scar with wound VAC present. Neuro: Intubated, sedated Urinary Catheter Management: Orellana: Cath Placed During This Visit: yes, but has since been removed by the nurse Reason for Continuing Indwelling Catheter: Accurate Measurement of Urinary Output in Critically Ill Patients Urinary Catheter Date of Insertion: 10/15/22 Urinary Catheter Time of Insertion: 13:50 Date Urinary Catheter Removed: 10/10/22 Time Urinary Catheter Discontinued: 17:45 Data 10/24/22 02:57 10/24/22 02:57 Micro: Microbiology 10/19/22 06:14 Blood Culture - Final Blood NO GROWTH AFTER 5 DAYS 10/19/22 02:17 Blood Culture - Final Blood NO GROWTH AFTER 5 DAYS 10/22/22 12:45 MRSA Culture - Final Nose A&P Assessment and plan (1) Septic shock: Patient met sepsis criteria: Has elevated white cell count, endorgan dysfunction in the presence of TALON, fever, likely intra-abdominal infection as a source, with possible pneumonia. Now resolved. Keep mean artery pressure 65, saturation over 90%. Patient on vancomycin and meropenem for a number of days. We will plan to continue IV antibiotics for a week postoperatively. Last day on 10/25. Check MRSA swab. If negative will stop vancomycin. 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 Patient started complaining of severe abdominal pain on 10/15. CT abdomen and pelvis with contrast showed: Large amount of free air within the abdomen and pelvis: surgery is of the opinion:?That there is anastomotic leak with moderate to large dehiscence at the anastomosis. Repeat CT abdomen and pelvis on: 10/18: No residual free air is identified. Small amount of fluid in the central mesentery and mesenteric edema. Overall the amount of fluid has improved since the exam of 10/15/2022. status post resection of colonic anastomosis and end ileostomy formation (3) Atrial fibrillation with rapid ventricular response: In a patient with known chronic atrial fibrillation, on bisoprolol in combination with HCTZ as only rate controlling medication at home. Currently rate controlled with amiodarone 400 mg twice daily. 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 Has myocardial perfusion study on 10/05/22. Ischemic work-up was negative. Currently troponin series additionally negative. No acute ST-T wave changes to suggest acute coronary syndrome. Take Xarelto as an outpatient for anticoagulation. Will discuss with surgery further regarding restarting complete anticoagulation. For now continue with prophylactic dose. (4) TALON (acute kidney injury): Baseline creatinine normal to 1. Currently 1.9. Most likely in setting of bowel necrosis requiring open laparotomy. Medical reconciliation done for nephrotoxic drugs. Monitor BMP daily. Maintain Orellana catheter. Strict input output charting. Overall 125 cc of fluid hydration per hour. 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 No current complaints of chest pain though need to try to maintain rate control. Had myocardial perfusion imaging on October 05, 2022 that did not show evidence of ischemia and revealed a normal ejection fraction. (6) Polycythemia: Secondary, has been managed with blood donation periodically. Preoperative hemoglobin same. (7) Obstructive sleep apnea: Not currently using cpap at home due to malfunction of machine. ABG with evidence of hypercapnic hypoxic respiratory failure. Known restrictive lung disease and asbestosis. At baseline uses CPAP at home, unable to utilize BiPAP given abdominal surgery. Currently saturating 93% on supplemental O2, does drop down to 70% on room air. Does not typically use oxygen at home. Continue to use DuoNeb and budesonide scheduled inhalation. No current indication for steroid use. Suspect that patient may have underlying baseline hypoxia and will likely require supplemental O2 at discharge. (8) Hypertension: Chronic diagnosis, usually on bisoprolol-HCTZ and lisinopril. Both held prior to surgery. Currently with low normal blood pressures in setting of recent medications and post-operative state. (9) Dyslipidemia: Chronically on statin therapy. (10) Asthma: Does not appear acutely exacerbated at present. Chronically on budesonide-fomoterol HFA. 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 (13) COVID-19: Had COVID in early 08/2022 and was hospitalized in [place] briefly needing oxygen. (14) Goiter: Last TSH recorded in our system is from 09/2020, low normal. (15) Gout: Chronically on allopurinol (16) Fever: Likely 2/2 coronavirus infection (NOT COVID) (17) Hyperkalemia: Now resolved (18) Hypernatremia: Resolved. (19) Anemia: Plan Plan for the day: Creatinine down to 1.5. Continue with IV fluids. Sodium up to 146. Switch fluid to D5 half NS at 100 cc/h. Repeat BMP in AM. Strict input output charting. Stop TPN. Tube feeds at goal and tolerating well. Switch back to pressure support of 8. We will monitor tidal volumes. Will be difficult extubation given patient having abdominal breathing and him being postoperative status with wound VAC present on the abdomen as patient is taking shallow breaths secondary to pain. Will need to continue working him gradually on mechanical ventilator while coming down on pressure support to assure he does not fail extubation. Will wean down Precedex today and increase the dose of fentanyl to 50 for now. Continue IV antibiotics with vancomycin and meropenem for overall 7-day course. Patient has remained afebrile. Last day of antibiotic 10/25. Full code. SCDs for DVT prophylaxis. Tube feeds, TPN for nutrition. Fentanyl, Dilaudid for pain control. Discharge planning: Plan to discharge to SNF for wound care and further rehabitation once patient is medically and surgically stable. Select long-term facility will be difficult as they would want patient to be intubated for at least 21 days prior to transfer or with a trach. Currently plan is to possible extubation and then transfer to SNF for further rehabitation. Decide as per clinical development. Thank you for involving us in care of Mr. Voss. We will continue to follow. Please reach out to us with any questions. Care discussed in detail with patient's RN and primary team. Attestations Medical Necessity Statement*: Requires further hospitalization for respiratory failure requiring mechanical ventilator as patient is ventilator dependent in setting of post left hemicolectomy, dehiscence requiring open laparotomy Critical Care Time: The high probability of a clinically significant, sudden or life threatening deterioration of the patient's pulmonary, renal, GI system(s) required my full and direct attention, intervention and personal management. The critical care time is as shown. This time is in addition to time spent performing any reported procedures but includes the following: [x] Data and vital sign review and interpretation [x] Patient assessment, examination and intervention [x] Documentation [x] Medication orders and management Critical Care Time (min): 70 Coding Level of Care Code Acute Code for Chg Fwd Diagnoses Septic shock A41.9; R65.21 Status post left hemicolectomy Z90.49 Atrial fibrillation with rapid ventricular response I48.91 TALON (acute kidney injury) N17.9 Myocardial bridge Q24.5 Polycythemia D75.1 Obstructive sleep apnea G47.33 Hypertension I10 Dyslipidemia E78.5 Asthma J45.30 Asthma complication type: uncomplicated Asthma persistence: persistent Asthma severity: mild Restrictive lung disease due to kyphoscoliosis J98.4; M41.9 Degenerative joint disease (DJD) of lumbar spine M47.816 COVID-19 U07.1 Goiter E04.9 Gout M10.9 Fever R50.9 Hyperkalemia E87.5 Hypernatremia E87.0 Anemia D64.9
--- NOTE | 2022-10-24 13:03 | PM.PN ---
Subjective Subjective: Not yet extubated. Positive colostomy output. Wound VAC changed today. Tolerating tube feeds at goal Vitals/I&O/Wt Last Vital Signs Temp 100.0 F H 10/24/22 12:45 Pulse 82 10/24/22 12:45 Resp 23 H 10/24/22 11:20 BP 140/71 10/24/22 12:45 Pulse Ox 91 10/24/22 12:45 O2 Del Method 10/24/22 12:45 O2 Flow Rate 30 10/24/22 10:00 FiO2 30 10/24/22 12:45 10/23/22 10/24/22 10/24/22 22:59 06:59 14:59 Intake Total 2381.222 / 3101.524 2140.816 / 5242.340 1250.309 / 1250.309 Output Total 1475 / 1565 1920 / 3485 Balance 906.222 / 1536.524 220.816 / 1565.641 1463.309 / 1250.309 Weight last 48 hrs Weight 340 lb Weight 331 lb Physical Exam Narrative: GEN: Intubated/sedated Abdomen soft, nondistended, no guarding Wound VAC in place with appropriate output. No bowel seen below wound VAC with wound change today. no erythema or exudate Ostomy viable and producing Urinary Catheter Management: Orellana: Cath Placed During This Visit: yes, but has since been removed by the nurse Reason for Continuing Indwelling Catheter: Accurate Measurement of Urinary Output in Critically Ill Patients Urinary Catheter Date of Insertion: 10/15/22 Urinary Catheter Time of Insertion: 13:50 Date Urinary Catheter Removed: 10/10/22 Time Urinary Catheter Discontinued: 17:45 Data 10/24/22 02:57 10/24/22 02:57 Micro: Microbiology 10/19/22 06:14 Blood Culture - Final Blood NO GROWTH AFTER 5 DAYS 10/19/22 02:17 Blood Culture - Final Blood NO GROWTH AFTER 5 DAYS 10/22/22 12:45 MRSA Culture - Final Nose A&P Assessment and plan (1) Colon cancer: (2) Status post left hemicolectomy: Plan Postoperative day #16 status post left hemicolectomy for colon cancer at the splenic flexure Postoperative day #9 status post resection of colonic anastomosis and end ileostomy formation Continue tube feeds at goal Wound VAC change Saturday-I will keep a close eye out for propagation of the dehiscence and 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 Attempting closure via wound VAC Hospitalist following-appreciate input Attestations Medical Necessity Statement*: Patient requires multiple more nights in the hospital for intensive care following anastomotic leak after left hemicolectomy for colon cancer Coding Level of Care Code Acute Code for Chg Fwd Diagnoses Colon cancer C18.9 Status post left hemicolectomy Z90.49
[2022-10-24] MEDS: trazodone 150 mg Tablet 300 MG PO (20:27)
[2022-10-25] VITALS (91 sets, daily range): BP systolic 105–176; BP diastolic 48–112; PULSE 61–135; RESP 14–35; TEMP 37–38.2; O2SAT 84–100; BMI 41.3
[2022-10-25 03:42] LABS: Alanine Aminotransferase 21 U/L (0-41); Alkaline Phosphatase 65 U/L (40-130); Anion Gap 13.6 (5-19); Aspartate Amino Transferase 23 U/L (0-40); Blood Urea Nitrogen 35 mg/dL (8-23); Calcium 8.6 mg/dL (8.5-10.5); Carbon Dioxide 22 mmol/L (22-29); Chloride 116 mmol/L (98-107); Globulin 2.8 g/dL (1.3-4.6); Glomerular Filtration Rate 50.5 mL/min (90-130); Glucose 141 mg/dL (65-115); Osmolality Calculated 314 mOsm/kg (285-295); Potassium 4.6 mmol/L (3.5-5.1); Sodium 147 mmol/L (136-145); Total Bilirubin 0.3 mg/dL (0.15-1.2); Total Protein 5.8 g/dL (6.6-8.7)
[2022-10-25] MEDS: HYDROmorphone 1 mg/mL INJ 1 mL 0.5 MG IVP ×2 (05:51→20:40)
[2022-10-25] MEDS: budesonide 0.5 mg/2 mL Neb INHALATION ×2 (08:08→19:47)
[2022-10-25] MEDS: albuterol 2.5 mg/3 mL Neb INHALATION ×3 (08:08→19:47)
[2022-10-25] MEDS: pantoprazole 40 mg SDV IVP (09:10)
[2022-10-25] MEDS: chlorhexidine gluconate 4% Btl 118 mL 1 APPLIC TOPICAL (09:11)
[2022-10-25] MEDS: dextrose 5%-sod chloride 0.45% 1,000 ML 100 ML IV (09:11)
[2022-10-25] MEDS: amiodarone 200 mg Tablet 400 MG PO ×2 (09:11→19:25)
--- NOTE | 2022-10-25 10:22 | PC.SOCIAL ---
IMM Update pg 2 of IMM updated and reviewed w/ patients . Copy provided and Copy in chart dated, and initialed.
--- NOTE | 2022-10-25 10:30 | CT_ITS ---
WS: [id number] CT ABDOMEN AND PELVIS WITH CONTRAST HISTORY: post operative, r/o collection or abscess TECHNIQUE: Imaging performed of the abdomen and pelvis with IV contrast. Single phase imaging of the abdomen. Coronal and sagittal reformats are submitted. All CT scans at [facility] use at [facility] one of these dose optimization techniques: automated exposure control; mA and/or kV adjustment per patient size (includes targeted exams where dose is matched to clinical indication); or iterative re construction. IV CONTRAST: Omnipaque 350; 95 mL IV. Oral contrast: Yes DLP: 3.66 mGy.cm COMPARISON: 10/18/2022 Lower thorax: Moderate bilateral lower lobe atelectatic changes. Small amount of atelectasis in the R IGHT middle lobe. There is a very small RIGHT pleural effusion. Mild cardiomegaly. Nasogastric tube i n good position. Liver/biliary system: Normal size with no intrahepatic dilatation. Gallbladder: Normal. No gallstones or wall thickening. No pericholecystic fluid. Pancreas: Normal size pancreas and pancreatic duct. No adjacent inflammation. Spleen: Normal size spleen. No mass or infarct. Adrenal glands: Normal. Right kidney: Poor enhancement of the RIGHT kidney. This is probably due to injection rate and artifa ct obscuring the kidney from the patient's spine hardware. No obstruction of the kidney. Nonobstructi ng calcification. Left kidney: No interval change. Renal cysts are identified. Aorta: Mild atherosclerosis with no aneurysm. Lymphadenopathy: None. Free fluid: There is a very tiny amount of free fluid in the pelvis. GI tract: Stomach is moderately well distended with contrast. No small bowel obstruction. RIGHT lower quadrant colostomy. There are a few small foci of air in the subcutaneous soft tissues surrounding t he colostomy site that were not present on 10/18/2022. Fluid collection with minimally enhancing wall measuring 8.6 x 3.3 cm in the central pelvis. Closely associated with the small bowel loops. Abdominal wall: Recent postoperative changes along the anterior abdominal wall. No abscess along the surgical site. Soft tissue anasarca. Pelvis: Nondistended urinary bladder. There is a Orellana catheter in place. Bones: Unremarkable. CT/CT abdomen pelvis w con* [id number] IMPRESSION: 1. Small RIGHT pleural effusion. 2. Bilateral segmental lower lobe atelectasis and RIGHT middle lobe partial at electasis. 3. New foci of air in the RIGHT lower quadrant colostomy site. This air was no t present on 10/18/2022. Close observation for possible new ischemic changes at the colostomy site. 4. Central pelvic collection measures 8.6 x 3.3 cm. Differential includes a sm all central abscess versus seroma or hematoma. Recommend close follow-up. This may be difficult for image guided aspiration due to the patient's body habitus and deep position. 5. Nasogastric tube in good position. 6. No free air is appreciated.
[2022-10-25] MEDS: iron sucrose 200 MG in sodium chloride 0.9% (100 ml) 100 ML 220 MG IV (11:46)
--- NOTE | 2022-10-25 12:26 | PC.CHAP ---
Pastoral Care Encounter/Spiritual Assessment Type of Contact [] Declined electric golf cart repairers visit [] Patient/Family/Request visit [] Outpatient visit [] Follow-up visit [] Physician referral [] Code/Alert [x] Routine visit [] Staff referral [] Actively dying [] Patient sleeping [] Family support [] [] Out of room [] Palliative care [] [x] Receiving care in room [] Pre-surgical visit [] Trauma [] Long length of stay [x] ICU visit [x] Other: PT responding to our voices Relational/Emotional Strength [] Patient feels connected with others/family/visitors/staff [] Distress [] Loneliness/isolation [] Abandonment Spirituality of Patient [] Person of Maryanne [] Attends Roman Catholic of their Maryanne [] Believes in Prayer [] Reads Bible or Latter-Day materials [] There are Spiritual issues to be addressed Hearing Dog Trainer 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 [x] Prayer [] Active listening [] Non-anxious presence [] Spiritual/emotional support [] Crisis/trauma care [] Spiritual counseling [] Bereavement support [] Provided bereavement packet [] Provided Bible/devotional materials [] Provided toy/stuffed animal, coloring book to patient or family member [] Provided Communion [] Anointing/[place] [] Salvation [x] Completed spiritual assessment [] Other: Impact on Illness or Injury [] Angry [] Fearful [] Anxious [] Often cries [] Exhaustion [] Unable to work [] Unable to attend spiritism [] Unable to walk/stand [] Unable to read [] Unable to drive [] Unable to eat/drink [] Unable to sleep [] Unable to be with family [] Patient intubated [] Other: Summary Time spent with patient
[2022-10-25] MEDS: iohexol 350 mg/mL 500 mL Btl (per mL) IV (13:54)
[2022-10-25] MEDS: iohexol 300 mg/mL 50 mL Btl PO (13:54)
--- NOTE | 2022-10-25 14:01 | P.PN_ITS ---
Subjective Subjective: Overnight patient was turned back to full support. On further review of chart since patient uses CPAP at home at 12. Pressure support changed to 10 during the day. Tidal volume slightly better. Currently on fentanyl 75, Precedex 0.9. Plan to wean down Precedex. Plan to continue with CPAP mode on ventilator today and possible extubation within next 24 hours. Documented urine output in the last 24 hours of around 3.3 L of which 400 cc from the drains. Right abdomen drain putting out more than 2 days.. Low-grade temperature of 100.8 within last 24 hours. Vitals/I&O/Wt Last Vital Signs Temp 100.8 F H 10/25/22 09:30 Pulse 80 10/25/22 13:19 Resp 29 H 10/25/22 13:18 BP 125/67 10/25/22 12:00 Pulse Ox 94 10/25/22 13:18 O2 Del Method 10/25/22 13:18 O2 Flow Rate 30 10/24/22 10:00 FiO2 30 10/25/22 13:18 10/24/22 10/25/22 10/25/22 22:59 06:59 14:59 Intake Total 2171.667 / 3831.976 1017.208 / 4849.184 1000 / 1000 Output Total 1755 / 1755 1545 / 3300 Balance 416.667 / 2076.976 -527.792 / 9283.008 4370 / 1000 Weight last 48 hrs Weight 154.221 kg Weight 154.221 kg Physical Exam Narrative: General: Intubated, not sedated, minimally responsive. following commands HEENT: PERRLA, pupils bilaterally equal and reactive Chest: Normal vesicular breath sounds, no added sounds, equal good air entry bilaterally CVS: S1-S2 regular, no murmurs, no tachycardia, no gallops, no rubs Abdomen: Distended, surgical drains present, central surgical scar with wound VAC present. Neuro: Intubated, sedated Urinary Catheter Management: Orellana: Cath Placed During This Visit: yes, but has since been removed by the nurse Reason for Continuing Indwelling Catheter: Accurate Measurement of Urinary Output in Critically Ill Patients Urinary Catheter Date of Insertion: 10/15/22 Urinary Catheter Time of Insertion: 13:50 Date Urinary Catheter Removed: 10/10/22 Time Urinary Catheter Discontinued: 17:45 Data 10/24/22 02:57 10/25/22 02:39 A&P Assessment and plan (1) Septic shock: Patient met sepsis criteria: Has elevated white cell count, endorgan dysfunction in the presence of TALON, fever, likely intra-abdominal infection as a source, with possible pneumonia. Now resolved. Keep mean artery pressure 65, saturation over 90%. Patient on vancomycin and meropenem for a number of days. We will plan to continue IV antibiotics for a week postoperatively. Last day on 10/25. MRSA swab negative. Vancomycin stopped. 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 Patient started complaining of severe abdominal pain on 10/15. CT abdomen and pelvis with contrast showed: Large amount of free air within the abdomen and pelvis: surgery is of the opinion:?That there is anastomotic leak with moderate to large dehiscence at the anastomosis. Repeat CT abdomen and pelvis on: 10/18: No residual free air is identified. Small amount of fluid in the central mesentery and mesenteric edema. Overall the amount of fluid has improved since the exam of 10/15/2022. status post resection of colonic anastomosis and end ileostomy formation (3) Atrial fibrillation with rapid ventricular response: In a patient with known chronic atrial fibrillation, on bisoprolol in combination with HCTZ as only rate controlling medication at home. Currently rate controlled with amiodarone 400 mg twice daily. 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 Has myocardial perfusion study on 10/05/22. Ischemic work-up was negative. Currently troponin series additionally negative. No acute ST-T wave changes to suggest acute coronary syndrome. Take Xarelto as an outpatient for anticoagulation. Will discuss with surgery further regarding restarting complete anticoagulation. For now continue with prophylactic dose. (4) TALON (acute kidney injury): Baseline creatinine normal to 1. Currently 1.9. Most likely in setting of bowel necrosis requiring open laparotomy. Medical reconciliation done for nephrotoxic drugs. Monitor BMP daily. Maintain Orellana catheter. Strict input output charting. Overall 125 cc of fluid hydration per hour. 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 No current complaints of chest pain though need to try to maintain rate control. Had myocardial perfusion imaging on October 05, 2022 that did not show evidence of ischemia and revealed a normal ejection fraction. (6) Polycythemia: Secondary, has been managed with blood donation periodically. Preoperative hemoglobin same. (7) Obstructive sleep apnea: Not currently using cpap at home due to malfunction of machine. ABG with evidence of hypercapnic hypoxic respiratory failure. Known restrictive lung disease and asbestosis. At baseline uses CPAP at home, unable to utilize BiPAP given abdominal surgery. Currently saturating 93% on supplemental O2, does drop down to 70% on room air. Does not typically use oxygen at home. Continue to use DuoNeb and budesonide scheduled inhalation. No current indication for steroid use. Suspect that patient may have underlying baseline hypoxia and will likely require supplemental O2 at discharge. (8) Hypertension: Chronic diagnosis, usually on bisoprolol-HCTZ and lisinopril. Both held prior to surgery. Currently with low normal blood pressures in setting of recent medications and post-operative state. (9) Dyslipidemia: Chronically on statin therapy. (10) Asthma: Does not appear acutely exacerbated at present. Chronically on budesonide-fomot richie HFA. 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 (13) COVID-19: Had COVID in early 08/2022 and was hospitalized in [place] briefly needing oxygen. (14) Goiter: Last TSH recorded in our system is from 09/2020, low normal. (15) Gout: Chronically on allopurinol (16) Fever: Likely 2/2 coronavirus infection (NOT COVID) (17) Hyperkalemia: Now resolved (18) Hypernatremia: Resolved. (19) Anemia: Plan Plan for the day: Care discussed in detail with Dr. Soares. Creatinine continues to improve. Sodium level mildly elevated again today. Continue with D5 half NS at current rate. Increase free water flushes to 250 cc every 6 hourly. Continue tube feeds at current rate. Maintain on pressure support of 10. Patient uses CPAP at 12 at home. If does well today and if Precedex is weaned down can plan to extubate within next 24 hours. Most likely patient will be requiring CPAP on extubation. Patient having low-grade fever. Check urinalysis, sputum culture. Discussed with Dr. Soares. We will plan for CT abdomen pelvis with contrast both IV and oral given increased output in right-sided abdominal drain. Will monitor renal functions. If any concerns for collection/abscess we will continue IV antibiotics for overall 14 days. Will dose as per creatinine clearance. Full code. SCDs for DVT prophylaxis. Tube feeds, TPN for nutrition. Fentanyl, Dilaudid for pain control. Discharge planning: Plan to discharge to SNF for wound care and further rehabitation once patient is medically and surgically stable. Select long-term facility will be difficult as they would want patient to be intubated for at least 21 days prior to transfer or with a trach. Currently plan is to possible extubation and then transfer to SNF for further rehabitation. Decide as per clinical development. Thank you for involving us in care of Mr. Voss. We will continue to follow. Please reach out to us with any questions. Care discussed in detail with patient's RN and primary team. Attestations Medical Necessity Statement*: Requires further hospitalization for ventilator dependence secondary to hypoxic respiratory failure in a patient with left-sided hemicolectomy complicated by wound dehiscence requiring open laparotomy, TALON, hyperkalemia in a patient with baseline obstructive sleep apnea Critical Care Time: The high probability of a clinically significant, sudden or life threatening deterioration of the patient's [pulmonology, neurological, GI, ID] system(s) required my full and direct attention, intervention and personal management. The critical care time is as shown. This time is in addition to time spent performing any reported procedures but includes the following: [x] Data and vital sign review and interpretation [x] Patient assessment, examination and intervention [x] Documentation [x] Medication orders and management Critical Care Time (min): 70 Coding Level of Care Code Acute Code for Chg Fwd Diagnoses Septic shock A41.9; R65.21 Status post left hemicolectomy Z90.49 Atrial fibrillation with rapid ventricular response I48.91 TALON (acute kidney injury) N17.9 Myocardial bridge Q24.5 Polycythemia D75.1 Obstructive sleep apnea G47.33 Hypertension I10 Dyslipidemia E78.5 Asthma J45.30 Asthma severity: mild Asthma persistence: persistent Asthma complication type: uncomplicated Restrictive lung disease due to kyphoscoliosis J98.4; M41.9 Degenerative joint disease (DJD) of lumbar spine M47.816 COVID-19 U07.1 Goiter E04.9 Gout M10.9 Fever R50.9 Hyperkalemia E87.5 Hypernatremia E87.0 Anemia D64.9
--- NOTE | 2022-10-25 14:03 | US_ITS ---
WS: [id number] Ultrasound thorax, RIGHT. HISTORY: Evaluate for pleural effusion prior to thoracentesis. There is a very small pleural effusion. Insufficient volume for safe thoracentesis. Would be difficul t also to access due to patient's body habitus and limited mobility. US/US chest 59020 IMPRESSION: Very small RIGHT pleural effusion. Insufficient effusion for safe thoracentesis .
[2022-10-25] MEDS: meropenem 1,000 MG in sodium chloride 0.9% (plus) 50 ML 100 MG IV ×2 (16:07→22:54)
[2022-10-25] MEDS: trazodone 150 mg Tablet 300 MG PO (20:40)
[2022-10-26] VITALS (44 sets, daily range): BP systolic 100–199; BP diastolic 58–112; PULSE 68–94; RESP 16–34; TEMP 36.6–37.2; O2SAT 87–99
[2022-10-26] MEDS: albuterol 2.5 mg/3 mL Neb INHALATION ×2 (02:09→07:35)
[2022-10-26 03:12] LABS: Basophils # 0.1 10^3/uL (0.0-0.1); Basophils % 0.7 %; Eosinophils # 0.2 10^3/uL (0.0-0.8); Eosinophils % 2.3 %; Hematocrit 27.4 % (42.0-52.0); Hemoglobin 8.1 g/dL (11.7-16.6); Lymphocytes % 11.4 %; Mean Corpuscular HGB Conc 29.6 g/dL (30.0-36.0); Mean Corpuscular Hemoglobin 31.2 pg (28.0-34.0); Mean Corpuscular Volume 105.4 fl (80-94); Mean Platelet Volume 9.7 fL (7.4-10.4); Monocytes # 0.9 10^3/uL (0.2-0.9); Monocytes % 10.3 %; Neutrophils # 6.24 10^3/uL (1.8-7.7); Neutrophils % 68.3 %; Nucleated Red Blood Cells % 0 %; Platelet Count 464 10^3/cmm (130-400); Red Cell Distribution Width 17.2 % (12.1-15.1); White Blood Count 9.1 10^3/uL (4.0-10.0)
[2022-10-26 03:44] LABS: Alanine Aminotransferase 19 U/L (0-41); Albumin Level 2.8 g/dL (3.5-5.2); Alkaline Phosphatase 71 U/L (40-130); Anion Gap 12.9 (5-19); Aspartate Amino Transferase 20 U/L (0-40); Blood Urea Nitrogen 36 mg/dL (8-23); Calcium 8.8 mg/dL (8.5-10.5); Carbon Dioxide 23 mmol/L (22-29); Chloride 115 mmol/L (98-107); Glomerular Filtration Rate 50.5 mL/min (90-130); Glucose 138 mg/dL (65-115); Osmolality Calculated 313 mOsm/kg (285-295); Potassium 4.9 mmol/L (3.5-5.1); Sodium 146 mmol/L (136-145); Total Bilirubin 0.3 mg/dL (0.15-1.2); Total Protein 5.8 g/dL (6.6-8.7)
[2022-10-26] MEDS: HYDROmorphone 1 mg/mL INJ 1 mL 0.5 MG IVP ×3 (04:11→23:40)
[2022-10-26] MEDS: dextrose 5%-sod chloride 0.45% 1,000 ML 100 ML IV ×3 (04:12→18:38)
[2022-10-26 05:40] LABS: Slide Review Slide Review Perform
[2022-10-26] MEDS: meropenem 1,000 MG in sodium chloride 0.9% (plus) 50 ML 100 MG IV ×3 (06:01→22:26)
[2022-10-26] MEDS: budesonide 0.5 mg/2 mL Neb INHALATION ×2 (07:35→19:39)
[2022-10-26] MEDS: amiodarone 200 mg Tablet 400 MG PO ×2 (09:03→17:15)
[2022-10-26] MEDS: chlorhexidine gluconate 4% Btl 118 mL 1 APPLIC TOPICAL (09:04)
[2022-10-26] MEDS: pantoprazole 40 mg SDV IVP (09:04)
[2022-10-26] MEDS: fluconazole 100 mg Tablet 200 MG PO (09:04)
[2022-10-26] MEDS: HYDROmorphone 1 mg/mL INJ 1 mL IVP (09:31)
--- NOTE | 2022-10-26 10:10 | PC.NURSE ---
Dr Soares here. Wound vac dressing changes. Stitch to drain #3.
--- NOTE | 2022-10-26 10:28 | PC.CHAP ---
Pastoral Care Encounter/Spiritual Assessment Type of Contact [] Declined shoe repair cobbler visit [] Patient/Family/Request visit [] Outpatient visit [] Follow-up visit [] Physician referral [] Code/Alert [x] Routine visit [] Staff referral [] Actively dying [] Patient sleeping [] Family support [] [] Out of room [] Palliative care [] [x] Receiving care in room [] Pre-surgical visit [] Trauma [] Long length of stay [x] ICU visit [x] Other:continue to pray for PT... removing vent today.. he must breath on his own... pain meds down.... Relational/Emotional Strength [] Patient feels connected with others/family/visitors/staff [] Distress [] Loneliness/isolation [] Abandonment Spirituality of Patient [] Person of Maryanne [] Attends Restorationism of their Maryanne [] Believes in Prayer [] Reads Bible or Zoroastrian materials [] There are Spiritual issues to be addressed Qualitative Executive Researcher 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 [x] Prayer [] Active listening [] Non-anxious presence [] Spiritual/emotional support [] Crisis/trauma care [] Spiritual counseling [] Bereavement support [] Provided bereavement packet [] Provided Bible/devotional materials [] Provided toy/stuffed animal, coloring book to patient or family member [] Provided Communion [] Anointing/[place] [] Salvation [x] Completed spiritual assessment [] Other: Impact on Illness or Injury [] Angry [] Fearful [] Anxious [] Often cries [] Exhaustion [] Unable to work [] Unable to attend anabaptist [] Unable to walk/stand [] Unable to read [] Unable to drive [] Unable to eat/drink [] Unable to sleep [] Unable to be with family [] Patient intubated [] Other: Summary Time spent with patient
--- NOTE | 2022-10-26 11:15 | PC.NURSE ---
Pt extubated. NG remains in right nostril, as ordered by Dr Lyon.
[2022-10-26] MEDS: heparin 5,000 unit/mL INJ 1 mL 5000 UNIT SUBCUT ×2 (12:36→17:40)
[2022-10-26] MEDS: iron sucrose 200 MG in sodium chloride 0.9% (100 ml) 100 ML 220 MG IV (12:37)
--- NOTE | 2022-10-26 13:00 | PC.NURSE ---
Tube feeding restarted as verbally ordered by Dr Lyon.
[2022-10-26] MEDS: hyDRALAzine 20 mg/mL INJ 1 mL 10 MG IVP (13:33)
[2022-10-26] MEDS: HYDROcodone-acetaminophen 7.5-325 mg Tablet 1 TAB PO (13:42)
--- NOTE | 2022-10-26 14:49 | PM.PN ---
Subjective Subjective: Not yet extubated. Positive colostomy output. Wound VAC changed today. Tolerating tube feeds at goal. He was just found to be C. difficile positive Vitals/I&O/Wt Last Vital Signs Temp 99 F 10/26/22 13:00 Pulse 85 10/26/22 13:00 Resp 28 H 10/26/22 13:00 BP 133/89 10/26/22 13:00 Pulse Ox 95 10/26/22 13:00 O2 Del Method 10/26/22 13:00 O2 Flow Rate 35 10/26/22 13:00 FiO2 40 10/26/22 13:00 10/25/22 10/26/22 10/26/22 22:59 06:59 14:59 Intake Total 1402.167 / 2904.875 100 / 3004.875 1691.500 / 1691.500 Output Total 2745 / 2745 1670 / 4415 Balance -1342.833 / 159.875 -1570 / -1147.719 0202.500 / 1691.500 Weight last 48 hrs Weight 358 lb 3.2 oz Weight 340 lb Physical Exam Narrative: GEN: Intubated/sedated Abdomen soft, nondistended, no guarding Wound VAC in place with appropriate output. No bowel seen below wound VAC with wound change today. no erythema or exudate Ostomy viable and producing Urinary Catheter Management: Orellana: Cath Placed During This Visit: yes, but has since been removed by the nurse Reason for Continuing Indwelling Catheter: Accurate Measurement of Urinary Output in Critically Ill Patients Urinary Catheter Date of Insertion: 10/15/22 Urinary Catheter Time of Insertion: 13:50 Date Urinary Catheter Removed: 10/10/22 Time Urinary Catheter Discontinued: 17:45 Data 10/26/22 02:29 10/26/22 02:29 Micro: Microbiology 10/25/22 19:30 C.difficile Toxin B Gene (PCR) - Final Stool - Stool Aspirate 10/26/22 02:29 Blood Culture - Preliminary Blood SPECIMEN COLLECTED 10/26/22 02:35 Blood Culture - Preliminary Blood SPECIMEN COLLECTED 10/25/22 10:20 Gram Stain - Final Sputum - Endotracheal Tube Aspirate A&P Assessment and plan (1) Colon cancer: (2) Status post left hemicolectomy: Plan Postoperative day #17 status post left hemicolectomy for colon cancer at the splenic flexure Postoperative day #10 status post resection of colonic anastomosis and end ileostomy formation Continue tube feeds at goal Wound VAC change Saturday-I will keep a close eye out for propagation of the dehiscence and 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 Attempting closure via wound VAC Add vancomycin orally for 10 days Hospitalist following-appreciate input Attestations Medical Necessity Statement*: Patient requires multiple more nights in the hospital for intensive care following anastomotic leak after left hemicolectomy for colon cancer Coding Level of Care Code Acute Code for Chg Fwd Diagnoses Colon cancer C18.9 Status post left hemicolectomy Z90.49
--- NOTE | 2022-10-26 15:43 | P.PN_ITS ---
Subjective Subjective: No acute events overnight. Today morning examination patient was on Precedex of 0.7, fentanyl of 20. Eventually he was extubated to heated high flow at 35% 40 L. Fentanyl was weaned off. Precedex is being weaned down. Overall documented urine output of over 4 L in last 24 hours. Patient is awake and alert and able to have conversation following commands postextubation. Saturating well over 95%. Having episodes of hypertension being treated with as needed medications Vitals/I&O/Wt Last Vital Signs Temp 99 F 10/26/22 13:00 Pulse 85 10/26/22 15:14 Resp 18 10/26/22 15:14 BP 133/89 10/26/22 13:00 Pulse Ox 97 10/26/22 15:14 O2 Del Method 10/26/22 13:00 O2 Flow Rate 35 10/26/22 15:14 FiO2 30 10/26/22 15:14 10/26/22 10/26/22 10/26/22 06:59 14:59 22:59 Intake Total 100 / 3004.875 1691.500 / 1691.500 Output Total 1670 / 4415 Balance -1570 / -1914.708 4853.500 / 1691.500 Weight last 48 hrs Weight 162.477 kg Weight 154.221 kg Physical Exam Narrative: General: No acute distress, extubated, weak, AO x3, following commands HEENT: PERRLA, pupils bilaterally equal and reactive Chest: Normal vesicular breath sounds, no added sounds, equal good air entry bilaterally CVS: S1-S2 regular, no murmurs, no tachycardia, no gallops, no rubs Abdomen: Distended, surgical drains present, central surgical scar with wound VAC present. Neuro: Moving all limbs, AOx3, extubated Urinary Catheter Management: Orellana: Cath Placed During This Visit: yes, but has since been removed by the nurse Reason for Continuing Indwelling Catheter: Accurate Measurement of Urinary Output in Critically Ill Patients Urinary Catheter Date of Insertion: 10/15/22 Urinary Catheter Time of Insertion: 13:50 Date Urinary Catheter Removed: 10/10/22 Time Urinary Catheter Discontinued: 17:45 Data 10/26/22 02:29 10/26/22 02:29 Micro: Microbiology 10/25/22 10:20 Gram Stain - Final Sputum - Endotracheal Tube Aspirate Sputum Culture - Preliminary Gram Negative Rods Yeast species 10/25/22 19:30 C.difficile Toxin B Gene (PCR) - Final Stool - Stool Aspirate 10/26/22 02:29 Blood Culture - Preliminary Blood SPECIMEN COLLECTED 10/26/22 02:35 Blood Culture - Preliminary Blood SPECIMEN COLLECTED A&P Assessment and plan (1) Ventilator dependent: Most likely secondary to postoperative status in setting of obstructive sleep apnea, COPD. Difficult to extubate given postoperative status with abdominal wound VAC. Baseline sleep apnea requiring CPAP up to pressure of 12. Noncompliant at home. Extubated to heated high flow on 10/26. Oxygen supplementation keeping saturation over 88%. Continue with DuoNebs every 6 hour, budesonide twice daily. Incentive spirometry, flutter valve. 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 Status post resection of colonic anastomosis and end ileostomy formation for wound dehiscence. Wound VAC, drains as per surgical team. Tube feeds as per surgical team. (3) Septic shock: Patient met sepsis criteria: Has elevated white cell count, endorgan dysfunction in the presence of TALON, fever, likely intra-abdominal infection as a source, with possible pneumonia. Now resolved. Keep mean artery pressure 65, saturation over 90%. Vancomycin stopped as MRSA negative. Last day of meropenem on 10/31. Course extended given possibility of abscess/collection intra-abdominally. Continue with IV fluids. (4) C. difficile colitis: Positive on 10/26. Start on oral vancomycin 125 mg 4 times daily. Monitor colostomy output. (5) Intra-abdominal collection: Seen on abdominal CT scan from 10/25. Query intra-abdominal abscess. Drain present. We will continue to monitor. Continue with extended course of IV antibiotics. (6) TALON (acute kidney injury): Baseline creatinine normal to 1. Trending down. Currently stable at 1.4. Robust urine output. Keep intake/output equal. Medical reconciliation done for nephrotoxic drugs. Nw currently 1.9. Monitor BMP daily. Maintain Orellana catheter. Strict input output charting. Overall 125 cc of fluid hydration per hour. (7) Obstructive sleep apnea: Not currently using cpap at home due to malfunction of machine. ABG with evidence of hypercapnic hypoxic respiratory failure. Known restrictive lung disease and asbestosis. At baseline uses CPAP at home, unable to utilize BiPAP given abdominal surgery. Currently saturating 93% on supplemental O2, does drop down to 70% on room air. Does not typically use oxygen at home. Continue to use DuoNeb and budesonide scheduled inhalation. No current indication for steroid use. Suspect that patient may have underlying baseline hypoxia and will likely require supplemental O2 at discharge. (8) Hypernatremia: Slight hyponatremia with sodium up to 146. Continue with D5 half NS at 100 cc/h. Continue with free water flushes at 250 every 4 hourly. Monitor BMP daily for now. (9) Hypertension: Chronic diagnosis, usually on bisoprolol-HCTZ and lisinopril. Goal blood pressure less than 140/90 mmHg with mean over 65. Restart home dose of metoprolol 50 mg twice daily. (10) Atrial fibrillation with rapid ventricular response: In a patient with known chronic atrial fibrillation, on bisoprolol in combination with HCTZ as only rate controlling medication at home. Currently rate controlled with amiodarone 400 mg twice daily. Takes Xarelto at home for anticoagulation. Off anticoagulation as per request from surgical team. Started on prophylaxis Heparin 5000 every 8 hourly. 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 Has myocardial perfusion study on 10/05/22. Ischemic work-up was negative. Currently troponin series additionally negative. No acute ST-T wave changes to suggest acute coronary syndrome. (11) Anemia: (12) Hyperkalemia: Now resolved (13) Restrictive lung disease due to kyphoscoliosis: Aware (14) COVID-19: Had COVID in early 08/2022 and was hospitalized in [place] briefly needing oxygen. Plan PT/OT evaluation. Continue with oral fluconazole, oral vancomycin. Continue with IV meropenem with last dose on November 01. Aggressive pulmonary toilet. CPAP nightly if tolerated. Add [place] 7.5 every 6 hourly as needed along with Dilaudid 0.5 every 4 as needed for pain, tramadol 100 mg every 6 hourly. Stop fentanyl. Wean off Precedex. Full code. SCDs for DVT prophylaxis. Tube feeds, TPN for nutrition. Fentanyl, Dilaudid for pain control. Discharge planning: Plan to discharge to SNF for wound care and further rehabitation once patient is medically and surgically stable. Select long-term facility will be difficult as they would want patient to be intubated for at least 21 days prior to transfer or with a trach. Currently plan is to possible extubation and then transfer to SNF for further rehabitation. Decide as per clinical development. Thank you for involving us in care of Mr. Voss. We will continue to follow. Please reach out to us with any questions. Care discussed in detail with patient's RN and primary team. Attestations Medical Necessity Statement*: Requires further hospitalization for management of respiratory failure, ventilator dependent, extubated in setting of open laparotomy for wound dehiscence in a patient post hemicolectomy, morbid obesity and obstructive sleep apnea Critical Care Time: The high probability of a clinically significant, sudden or life threatening deterioration of the patient's [pulmonary, renal, GI, cardiac] system(s) required my full and direct attention, intervention and personal management. The critical care time is as shown. This time is in addition to time spent performing any reported procedures but includes the following: [x] Data and vital sign review and interpretation [x] Patient assessment, examination and intervention [x] Documentation [x] Medication orders and management Critical Care Time (min): 70 Coding Level of Care Code Acute Code for Chg Fwd Diagnoses Ventilator dependent Z99.11 Status post left hemicolectomy Z90.49 Septic shock A41.9; R65.21 C. difficile colitis A04.72 Intra-abdominal collection R18.8 TALON (acute kidney injury) N17.9 Obstructive sleep apnea G47.33 Hypernatremia E87.0 Hypertension I10 Atrial fibrillation with rapid ventricular response I48.91 Anemia D64.9 Hyperkalemia E87.5 Restrictive lung disease due to kyphoscoliosis J98.4; M41.9 COVID-19 U07.1
[2022-10-26] MEDS: TRAMadol 50 mg Tablet 100 MG PO (18:00)
--- NOTE | 2022-10-26 19:14 | PC.NURSE ---
Shift Note: Pt rested in bed throughout shift. Per Dr Lyon, PT to start tomorrow after he rests today. He was extubated before noon to heated high flow nasal cannula. He is now at 30% and 35lpm. He is tolerating it well. He is still on the Precedex gtt at 0.4 mcg/kg/hr and IV fluids. Wound vac dressing changed today by Dr Soares. Colostomy appliance changed out today. Total of 145 ml of drainage in all 3 MISTI. MISTI 1 and 2 have serous ( yellow) drainage. MISTI #3 has serous drainage with a pink tinge and clots. Dressing on his Decubitus on his left buttock. He has refused to change positions since extubation today. He had the NG partially out this afternoon, it was re-secured with Benzoin and tape. Tube feedings paused for several hours for extubation, they were restarted at 1300. He has asked for ice, and vegetable broth today. Even at one point stated the Dr promised him ice chips. Discussed with him his NG and tube feedings providing him him caloric needs at this time and no . promised ice chips today, it might have been a dream. He agreed. He has needed 2 doses of pain meds this afternoon. [place] admin once and Tramadol admin once. His was in to see him today. He had over 1600ml of clear yellow urine output this shift. Cultures came back positive for C-diff today, vancomycin per NG started. Frequent safety and comfort rounds continue. Orders and/or nursing care completed as indicated. Patient monitored for response to intervention and treatment(s). Education provided includes extubation, wound dressing changes, Tramadol, [place], vancomyicn, plan of care and progress. Patient and/or safety representative verbalized understanding of topics discussed. Patient does need reinforcement. Will continue to monitor.
[2022-10-26] MEDS: levalbuterol 0.63 mg/3 mL Neb INHALATION (19:39)
[2022-10-26] MEDS: ipratropium 0.5 mg/2.5 mL Neb INHALATION (19:39)
[2022-10-26] MEDS: metoprolol tartrate 25 mg Tablet 50 MG PO (20:09)
[2022-10-26] MEDS: trazodone 150 mg Tablet 300 MG PO (20:09)
[2022-10-26] MEDS: nystatin powder 15 gm Btl 1 APPLIC TOPICAL (20:32)
--- NOTE | 2022-10-26 21:29 | PC.NURSE ---
Pt continues to refuse repositioning/turning. Pt educated on need for repositioning. Will continue to encourage movement.
[2022-10-26] MEDS: HYDROcodone-acetaminophen 7.5-325 mg Tablet PO (23:04)
--- NOTE | 2022-10-26 23:47 | PC.NURSE ---
Pt wound vac found to be alerting an air leak. Upon inspection, it was found that pt had pulled wound vac tube from dressing. Attempts were made with charge nurse, RICHIE Malcolm, but the leak persisted. House sup was called and RICHIE Leal and RICHIE Padgett both came to assist. RICHIE Padgett had been pt nurse previously and noted that the tube was in a different location of the wound prior to this shift. The decision was made to place tube back in location where it would be easier to get an air tight seal. Tegaderm placed over hole in dressing where pt removed tube, and wound vac tube replaced. Wound vac is no longer alerting an air leak. Will continue to monitor.
[2022-10-27] VITALS (27 sets, daily range): BP systolic 103–175; BP diastolic 51–99; PULSE 73–111; RESP 12–29; TEMP 36.6–37.4; O2SAT 87–100; BMI 43.6
[2022-10-27] MEDS: ondansetron 2 mg/ML SDV 2 mL 4 MG IVP ×2 (00:50→04:23)
[2022-10-27] MEDS: heparin 5,000 unit/mL INJ 1 mL 5000 UNIT SUBCUT ×3 (01:54→18:01)
[2022-10-27] MEDS: ipratropium 0.5 mg/2.5 mL Neb INHALATION ×4 (02:28→20:02)
[2022-10-27] MEDS: levalbuterol 0.63 mg/3 mL Neb INHALATION ×4 (02:29→20:02)
[2022-10-27] MEDS: HYDROmorphone 1 mg/mL INJ 1 mL 0.5 MG IVP ×2 (03:15→19:45)
[2022-10-27] MEDS: dextrose 5%-sod chloride 0.45% 1,000 ML 100 ML IV ×2 (04:23→16:48)
[2022-10-27] MEDS: HYDROcodone-acetaminophen 7.5-325 mg Tablet PO (04:24)
[2022-10-27 05:19] LABS: Basophils # 0.1 10^3/uL (0.0-0.1); Basophils % 0.7 %; Eosinophils # 0.3 10^3/uL (0.0-0.8); Eosinophils % 2.7 %; Hematocrit 28.6 % (42.0-52.0); Hemoglobin 8.5 g/dL (11.7-16.6); Lymphocytes # 1.1 10^3/uL (0.8-4.8); Lymphocytes % 9.7 %; Mean Corpuscular HGB Conc 29.7 g/dL (30.0-36.0); Mean Corpuscular Hemoglobin 31.4 pg (28.0-34.0); Mean Corpuscular Volume 105.5 fl (80-94); Monocytes # 0.9 10^3/uL (0.2-0.9); Monocytes % 8.1 %; Neutrophils # 8.21 10^3/uL (1.8-7.7); Neutrophils % 73.6 %; Nucleated Red Blood Cells % 0 %; Platelet Count 470 10^3/cmm (130-400); Red Blood Count 2.71 10^6/uL (4.1-5.3); Red Cell Distribution Width 17.1 % (12.1-15.1); White Blood Count 11.2 10^3/uL (4.0-10.0)
[2022-10-27 05:48] LABS: Alanine Aminotransferase 23 U/L (0-41); Albumin Level 2.9 g/dL (3.5-5.2); Alkaline Phosphatase 80 U/L (40-130); Anion Gap 12.7 (5-19); Aspartate Amino Transferase 23 U/L (0-40); Blood Urea Nitrogen 33 mg/dL (8-23); Calcium 8.9 mg/dL (8.5-10.5); Carbon Dioxide 24 mmol/L (22-29); Chloride 114 mmol/L (98-107); Globulin 3.1 g/dL (1.3-4.6); Glomerular Filtration Rate 46.7 mL/min (90-130); Glucose 118 mg/dL (65-115); Osmolality Calculated 310 mOsm/kg (285-295); Potassium 4.7 mmol/L (3.5-5.1); Sodium 146 mmol/L (136-145); Total Bilirubin 0.3 mg/dL (0.15-1.2)
[2022-10-27] MEDS: meropenem 1,000 MG in sodium chloride 0.9% (plus) 50 ML 100 MG IV ×2 (06:13→15:14)
[2022-10-27 06:19] LABS: Slide Review Slide Review Perform
--- NOTE | 2022-10-27 08:08 | PM.PN ---
Subjective Subjective: Patient was extubated yesterday and is conversive. Positive colostomy output. Tolerating tube feeds at goal. He had nausea with clear liquids last night. No emesis. Positive colostomy output Vitals/I&O/Wt Last Vital Signs Temp 98.9 F 10/27/22 08:00 Pulse 107 H 10/27/22 08:00 Resp 12 10/27/22 08:00 BP 126/51 10/27/22 08:00 Pulse Ox 91 10/27/22 08:00 O2 Del Method 10/27/22 08:00 O2 Flow Rate 35 10/27/22 02:29 FiO2 30 10/27/22 08:00 10/26/22 10/27/22 10/27/22 22:59 06:59 14:59 Intake Total 1311.667 / 3003.167 2480.069 / 5483.236 Output Total 2422 / 2422 2060 / 4482 Balance -1110.333 / 581.167 420.069 / 1001.236 Weight last 48 hrs Weight 358 lb 3.2 oz Weight 358 lb 3.2 oz Physical Exam Narrative: GEN: NAD, AAOx3 Abdomen soft, nondistended, appropriately tender, no g/r/m Wound VAC in place with appropriate output. No erythema or exudate Ostomy viable and producing Drains SS Urinary Catheter Management: Orellana: Cath Placed During This Visit: yes, but has since been removed by the nurse Reason for Continuing Indwelling Catheter: Accurate Measurement of Urinary Output in Critically Ill Patients Urinary Catheter Date of Insertion: 10/15/22 Urinary Catheter Time of Insertion: 13:50 Date Urinary Catheter Removed: 10/10/22 Time Urinary Catheter Discontinued: 17:45 Data 10/27/22 04:15 10/27/22 04:15 Micro: Microbiology 10/26/22 02:29 Blood Culture - Preliminary Blood NEGATIVE TO DATE 10/26/22 02:35 Blood Culture - Preliminary Blood NEGATIVE TO DATE 10/25/22 10:20 Gram Stain - Final Sputum - Endotracheal Tube Aspirate Sputum Culture - Preliminary Gram Negative Rods Yeast species 10/25/22 19:30 C.difficile Toxin B Gene (PCR) - Final Stool - Stool Aspirate A&P Assessment and plan (1) Colon cancer: (2) Status post left hemicolectomy: (3) C. 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 Attempting closure via wound VAC vancomycin orally for 10 days- last day Nov 05 Drain #3 abuts intraabdominal fluid collection Hospitalist following-appreciate input Attestations Medical Necessity Statement*: Patient requires multiple more nights in the hospital for intensive care following anastomotic leak after left hemicolectomy for colon cancer Coding Level of Care Code Acute Code for Chg Fwd Diagnoses Colon cancer C18.9 Status post left hemicolectomy Z90.49 C. difficile colitis A04.72 Intra-abdominal collection R18.8
[2022-10-27] MEDS: budesonide 0.5 mg/2 mL Neb INHALATION ×2 (08:35→20:02)
[2022-10-27] MEDS: amiodarone 200 mg Tablet 400 MG PO ×2 (09:37→18:02)
[2022-10-27] MEDS: pantoprazole 40 mg SDV IVP (09:38)
[2022-10-27] MEDS: metoclopramide 5 mg/mL SDV 2 mL IVP (09:39)
[2022-10-27] MEDS: fluconazole 100 mg Tablet 200 MG PO (09:40)
[2022-10-27] MEDS: metoprolol tartrate 25 mg Tablet 50 MG PO ×2 (09:43→20:48)
[2022-10-27] MEDS: nystatin powder 15 gm Btl 1 APPLIC TOPICAL (09:43)
[2022-10-27] MEDS: TRAMadol 50 mg Tablet 100 MG PO (09:59)
[2022-10-27] MEDS: chlorhexidine gluconate 4% Btl 118 mL 1 APPLIC TOPICAL (11:10)
[2022-10-27] MEDS: HYDROcodone-acetaminophen 7.5-325 mg Tablet 1 TAB PO (12:41)
--- NOTE | 2022-10-27 12:52 | PC.SOCIAL ---
IMM update IMM updated with patient. Verbalized an understanding. Copy PG 2 provided. Initialled, dated, timed, and placed in chart.
--- NOTE | 2022-10-27 13:32 | P.PN_ITS ---
Subjective Subjective: No acute events overnight. Patient was extubated yesterday. He tolerated extubation well. He is currently on 40 L 35% saturating more than 92%. Has remained hemodynamically stable and afebrile. Around 5 to 5.5 L of urine output in last 24 hours. Intake and output has almost been equal. Izzy ent is net 1 L negative last 24 hours. Patient is awake and alert x3. Able to have complete conversation. Diet was advanced to clear liquid diet yesterday in the evening after which he developed nausea. Minimal drain output. Has remained afebrile. Vitals/I&O/Wt Last Vital Signs Temp 98.9 F 10/27/22 08:00 Pulse 86 10/27/22 13:00 Resp 27 H 10/27/22 13:00 BP 139/81 10/27/22 13:00 Pulse Ox 93 10/27/22 13:00 O2 Del Method 10/27/22 11:00 O2 Flow Rate 35 10/27/22 08:39 FiO2 30 10/27/22 11:00 10/26/22 10/27/22 10/27/22 22:59 06:59 14:59 Intake Total 1311.667 / 3003.167 2480.069 / 5483.236 360 / 360 Output Total 2422 / 2422 2060 / 4482 1495 / 1495 Balance -1110.333 / 581.167 420.069 / 1001.236 -1135 / -1135 Weight last 48 hrs Weight 162.477 kg Weight 162.477 kg Physical Exam Narrative: General: No acute distress, extubated, weak, AO x3, following commands HEENT: PERRLA, pupils bilaterally equal and reactive Chest: Normal vesicular breath sounds, no added sounds, equal good air entry bilaterally CVS: S1-S2 regular, no murmurs, no tachycardia, no gallops, no rubs Abdomen: Distended, surgical drains present, central surgical scar with wound VAC present. Neuro: Moving all limbs, AOx3, extubated Urinary Catheter Management: Orellana: Cath Placed During This Visit: yes, but has since been removed by the nurse Reason for Continuing Indwelling Catheter: Accurate Measurement of Urinary Output in Critically Ill Patients Urinary Catheter Date of Insertion: 10/15/22 Urinary Catheter Time of Insertion: 13:50 Date Urinary Catheter Removed: 10/10/22 Time Urinary Catheter Discontinued: 17:45 Data 10/27/22 04:15 10/27/22 04:15 Micro: Microbiology 10/26/22 02:29 Blood Culture - Preliminary Blood NEGATIVE TO DATE 10/26/22 02:35 Blood Culture - Preliminary Blood NEGATIVE TO DATE 10/25/22 10:20 Gram Stain - Final Sputum - Endotracheal Tube Aspirate Sputum Culture - Preliminary Gram Negative Rods Yeast species 10/25/22 19:30 C.difficile Toxin B Gene (PCR) - Final Stool - Stool Aspirate A&P Assessment and plan (1) Ventilator dependent: Most likely secondary to postoperative status in setting of obstructive sleep apnea, COPD. Difficult to extubate given postoperative status with abdominal wound VAC. Baseline sleep apnea requiring CPAP up to pressure of 12. Noncompliant at home. Extubated to heated high flow on 10/26. Oxygen supplementation keeping saturation over 88%. Continue with DuoNebs every 6 hour, budesonide twice daily. Incentive spirometry, flutter valve. 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 Status post resection of colonic anastomosis and end ileostomy formation for wound dehiscence. Wound VAC, drains as per surgical team. Tube feeds as per surgical team. (3) Septic shock: Patient met sepsis criteria: Has elevated white cell count, endorgan dysfunction in the presence of TALON, fever, likely intra-abdominal infection as a source, with possible pneumonia. Now resolved. Keep mean artery pressure 65, saturation over 90%. Vancomycin stopped as MRSA negative. Last day of meropenem on 10/31. Course extended given possibility of abscess/collection intra-abdominally. Continue with IV fluids. (4) C. difficile colitis: Positive on 10/26. Start on oral vancomycin 125 mg 4 times daily. Monitor colostomy output. (5) Intra-abdominal collection: Seen on abdominal CT scan from 10/25. Query intra-abdominal abscess. Drain present. We will continue to monitor. Continue with extended course of IV antibiotics. (6) TALON (acute kidney injury): Baseline creatinine normal to 1. Trending down. Currently stable at 1.4. Robust urine output. Keep intake/output equal. Medical reconciliation done for nephrotoxic drugs. Nw currently 1.9. Monitor BMP daily. Maintain Orellana catheter. Strict input output charting. Overall 125 cc of fluid hydration per hour. (7) Obstructive sleep apnea: Not currently using cpap at home due to malfunction of machine. ABG with evidence of hypercapnic hypoxic respiratory failure. Known restrictive lung disease and asbestosis. At baseline uses CPAP at home, unable to utilize BiPAP given abdominal surgery. Currently saturating 93% on supplemental O2, does drop down to 70% on room air. Does not typically use oxygen at home. Continue to use DuoNeb and budesonide scheduled inhalation. No current indication for steroid use. Suspect that patient may have underlying baseline hypoxia and will likely require supplemental O2 at discharge. (8) Hypernatremia: Slight hyponatremia with sodium up to 146. Continue with D5 half NS at 100 cc/h. Continue with free water flushes at 250 every 4 hourly. Monitor BMP daily for now. (9) Hypertension: Chronic diagnosis, usually on bisoprolol-HCTZ and lisinopril. Goal blood pressure less than 140/90 mmHg with mean over 65. Restart home dose of metoprolol 50 mg twice daily. (10) Atrial fibrillation with rapid ventricular response: In a patient with known chronic atrial fibrillation, on bisoprolol in combination with HCTZ as only rate controlling medication at home. Currently rate controlled with amiodarone 400 mg twice daily. Takes Xarelto at home for anticoagulation. Off anticoagulation as per request from surgical team. Started on prophylaxis Heparin 5000 every 8 hourly. 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 Has myocardial perfusion study on 10/05/22. Ischemic work-up was negative. Currently troponin series additionally negative. No acute ST-T wave changes to suggest acute coronary syndrome. (11) Anemia: (12) Hyperkalemia: Now resolved (13) Restrictive lung disease due to kyphoscoliosis: Aware (14) COVID-19: Had COVID in early 08/2022 and was hospitalized in [place] briefly needing oxygen. Plan Plan for the day: Transition from heated high flow to high flow nasal cannula when possible keepin g saturation over 88%. Continue with D5 half NS at 100 cc/h. Increase free water flushes to 250 cc every 4 hourly. Monitor BMP daily for now. Plan for keeping intake and output equal. Continue with oral fluconazole, oral vancomycin. Continue with IV meropenem with last dose on November 01. Aggressive pulmonary toilet. Heart rate well controlled. Continue with amiodarone 4 mg twice daily for over all 7 days and transition to 200 mg twice daily. Continue with metoprolol 50 mg twice daily. Start on full dose anticoagulation for stroke prevention when okay with primary team. Continue with current pain medications. [place] 7.5 every 6 hourly as needed along with Dilaudid 0.5 every 4 as needed for pain, tramadol 100 mg every 6 hourly. PT/OT. Out of bed to chair as possible. Aggressive pulmonary toilet. Patient is stable to be transferred to [facility] floor once okay with the primary team. Once patient oxygen supplementation is less than 8 L patient should be stable enough to be transferred to SNF if accepted and okayed with primary team. Full code. SCDs, heparin 5000 every 8 hourly for DVT prophylaxis. Tube feeds at goal. Oral intake as per primary team. Discharge planning: Plan to discharge to SNF for wound care and further rehabitation once patient is medically and surgically stable. Select long-term facility will be difficult as they would want patient to be intubated for at least 21 days prior to transfer or with a trach. Currently plan is to possible extubation and then transfer to SNF for further rehabitation. Decide as per clinical development. Thank you for involving us in care of Mr. Voss. We will continue to follow. Please reach out to us with any questions. Care discussed in detail with patient's RN and primary team. Attestations Medical Necessity Statement*: As per primary team. Above defined care. Time Spent in Patient Care: Greater than 35 minutes Coding Level of Care Code Acute Code for Chg Fwd Diagnoses Ventilator dependent Z99.11 Status post left hemicolectomy Z90.49 Septic shock A41.9; R65.21 C. difficile colitis A04.72 Intra-abdominal collection R18.8 TALON (acute kidney injury) N17.9 Obstructive sleep apnea G47.33 Hypernatremia E87.0 Hypertension I10 Atrial fibrillation with rapid ventricular response I48.91 Anemia D64.9 Hyperkalemia E87.5 Restrictive lung disease due to kyphoscoliosis J98.4; M41.9 COVID-19 U07.1
--- NOTE | 2022-10-27 14:00 | PC.NURSE ---
patient with noted confusion at this time to place and situation. Will closely monitor.
--- NOTE | 2022-10-27 19:11 | PC.NURSE ---
All the care and documentation for the day that was completed by Allegra Haney student nurse was witness by this nurse.
[2022-10-27] MEDS: trazodone 150 mg Tablet 300 MG PO (20:44)
[2022-10-27] MEDS: simethicone 80 mg Chew 40 MG PO (20:44)
[2022-10-28] VITALS (31 sets, daily range): BP systolic 91–154; BP diastolic 52–89; PULSE 78–100; RESP 0–33; TEMP 37–37.3; O2SAT 94–100; BMI 43.6
[2022-10-28] MEDS: meropenem 1,000 MG in sodium chloride 0.9% (plus) 50 ML 100 MG IV ×3 (00:31→14:46)
[2022-10-28] MEDS: HYDROcodone-acetaminophen 7.5-325 mg Tablet 1 TAB PO ×3 (00:32→15:52)
[2022-10-28] MEDS: metoclopramide 5 mg/mL SDV 2 mL IVP (00:32)
[2022-10-28] MEDS: nystatin powder 15 gm Btl 1 APPLIC TOPICAL ×3 (00:33→21:40)
[2022-10-28] MEDS: levalbuterol 0.63 mg/3 mL Neb INHALATION ×4 (02:09→19:49)
[2022-10-28] MEDS: ipratropium 0.5 mg/2.5 mL Neb INHALATION ×4 (02:09→19:49)
[2022-10-28] MEDS: heparin 5,000 unit/mL INJ 1 mL 5000 UNIT SUBCUT ×3 (03:50→17:32)
[2022-10-28] MEDS: dextrose 5%-sod chloride 0.45% 1,000 ML 100 ML IV ×2 (03:51→14:47)
[2022-10-28 05:35] LABS: Basophils # 0.1 10^3/uL (0.0-0.1); Basophils % 0.4 %; Eosinophils # 0.2 10^3/uL (0.0-0.8); Eosinophils % 1.9 %; Hematocrit 30.2 % (42.0-52.0); Hemoglobin 8.5 g/dL (11.7-16.6); Lymphocytes # 1.2 10^3/uL (0.8-4.8); Lymphocytes % 9.3 %; Mean Corpuscular HGB Conc 28.1 g/dL (30.0-36.0); Mean Corpuscular Hemoglobin 30.9 pg (28.0-34.0); Mean Corpuscular Volume 109.8 fl (80-94); Mean Platelet Volume 10.2 fL (7.4-10.4); Monocytes % 8.4 %; Neutrophils # 9.16 10^3/uL (1.8-7.7); Neutrophils % 74.2 %; Nucleated Red Blood Cells % 0.2 %; Platelet Count 388 10^3/cmm (130-400); Red Blood Count 2.75 10^6/uL (4.1-5.3); Red Cell Distribution Width 17.2 % (12.1-15.1); White Blood Count 12.4 10^3/uL (4.0-10.0)
[2022-10-28 05:54] LABS: Alanine Aminotransferase 22 U/L (0-41); Albumin Level 2.7 g/dL (3.5-5.2); Alkaline Phosphatase 92 U/L (40-130); Anion Gap 9.6 (5-19); Aspartate Amino Transferase 21 U/L (0-40); Blood Urea Nitrogen 34 mg/dL (8-23); Calcium 8.7 mg/dL (8.5-10.5); Carbon Dioxide 28 mmol/L (22-29); Chloride 110 mmol/L (98-107); Globulin 3.4 g/dL (1.3-4.6); Glomerular Filtration Rate 37.8 mL/min (90-130); Glucose 141 mg/dL (65-115); Magnesium 1.9 mg/dL (1.7-2.3); Osmolality Calculated 304 mOsm/kg (285-295); Phosphorus 5.1 mg/dL (2.5-4.5); Potassium 5.6 mmol/L (3.5-5.1); Sodium 142 mmol/L (136-145); Total Bilirubin 0.2 mg/dL (0.15-1.2); Total Protein 6.1 g/dL (6.6-8.7)
[2022-10-28] MEDS: budesonide 0.5 mg/2 mL Neb INHALATION ×2 (08:58→19:49)
[2022-10-28] MEDS: fluconazole 100 mg Tablet 200 MG PO (09:13)
[2022-10-28] MEDS: metoprolol tartrate 25 mg Tablet 50 MG PO (09:13)
[2022-10-28] MEDS: amiodarone 200 mg Tablet 400 MG PO ×2 (09:13→17:32)
[2022-10-28] MEDS: chlorhexidine gluconate 4% Btl 118 mL 1 APPLIC TOPICAL (09:14)
[2022-10-28] MEDS: pantoprazole 40 mg SDV IVP (09:15)
--- NOTE | 2022-10-28 09:50 | P.PN_ITS ---
Subjective Subjective: Patient was extubated yesterday and is conversive. Positive colostomy output. Tolerating tube feeds at goal. He is tolerating a regular diet but only able to eat a small amount of food currently. No emesis. Positive colostomy output Vitals/I&O/Wt Last Vital Signs Temp 99.2 F 10/28/22 08:00 Pulse 96 10/28/22 08:59 Resp 20 H 10/28/22 08:59 BP 140/61 10/28/22 08:00 Pulse Ox 94 10/28/22 08:59 O2 Del Method 10/28/22 08:59 O2 Flow Rate 4 10/28/22 08:59 FiO2 30 10/28/22 06:00 10/27/22 10/28/22 10/28/22 22:59 06:59 14:59 Intake Total 2352 / 3712 1634 / 5346 50 / 50 Output Total 5082 / 6577 1690 / 8267 Balance -2730 / -2865 -56 / -2921 50 / 50 Weight last 48 hrs Weight 358 lb 3.2 oz Weight 358 lb 3.2 oz Physical Exam Narrative: GEN: NAD, AAOx3 Abdomen soft, nondistended, appropriately tender, no g/r/m Wound VAC in place with appropriate output. No erythema or exudate Ostomy viable and producing Drains 1&2 SS drain #3 is draining purulence Urinary Catheter Management: Orellana: Cath Placed During This Visit: yes, but has since been removed by the nurse Reason for Continuing Indwelling Catheter: Accurate Measurement of Urinary Output in Critically Ill Patients Urinary Catheter Date of Insertion: 10/15/22 Urinary Catheter Time of Insertion: 13:50 Date Urinary Catheter Removed: 10/10/22 Time Urinary Catheter Discontinued: 17:45 Data 10/28/22 03:44 10/28/22 03:44 A&P Assessment and plan (1) Colon cancer: (2) Status post left hemicolectomy: (3) C. difficile colitis: (4) Intra-abdominal collection: Plan Status post left hemicolectomy for colon cancer at the splenic flexure Status post resection of colonic anastomosis and end ileostomy formation Continue tube feeds at goal Wound VAC change Saturday-I will keep a close eye out for pro pagation of the dehiscence and 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 Attempting closure via wound VAC vancomycin orally for 10 days- last day Nov 05 Drain #3 abuts intraabdominal fluid collection and appears to be draining that collection now Hospitalist following-appreciate input Attestations Medical Necessity Statement*: Patient requires multiple more nights in the hospital for intensive care following anastomotic leak after left hemicolectomy for colon cancer Coding Level of Care Code Acute Code for Chg Fwd Diagnoses Colon cancer C18.9 Status post left hemicolectomy Z90.49 C. difficile colitis A04.72 Intra-abdominal collection R18.8
--- NOTE | 2022-10-28 10:54 | CTR_ITS ---
PROCEDURE INFORMATION: Exam: CT Head Without Contrast Exam date and time: 10/28/2022 12:52 PM Age: 67 years old Clinical indication: Altered mental status/memory loss; Confusion or disorientation; Additional info: AMS TECHNIQUE: Imaging protocol: Computed tomography of the head without contrast. Radiation optimization: All CT scans at this facility use at least one of these dose optimization techniques: automated exposure control; mA and/or kV adjustment per patient size (includes targeted exams where dose is matched to clinical indication); or iterative reconstruction. Other protocol: This patient has received 5 known CTs and 0 known cardiac nuclear medicine studies in the 12 months prior to the current study. COMPARISON: No relevant prior studies available. RADIATION DOSE METRICS: Total DLP (mGy-cm): 1180.29 FINDINGS: Tubes, catheters and devices: The nasogastric tube is placed via the right nostril. Brain: No acute intracranial hemorrhage. No edema. No mass effect. No focal abnormality in brain parenchyma. Cerebral ventricles: No ventriculomegaly. Paranasal sinuses: There is mild mucosal thickening in the left maxillary sinus suggestive of chronic sinusitis. No air-fluid levels. Status post bilateral maxillary antrostomy and partial ethmoidectomy. Mastoid air cells: No mastoid effusion. Bones/joints: No acute fracture. No suspicious lytic or sclerotic bone lesions. Soft tissues: Unremarkable. CT/CT head wo con* [id number] IMPRESSION: No CT evidence of acute intracranial hemorrhage, mass or acute infarction.
[2022-10-28] MEDS: insulin regular-human 10 UNIT in SYRINGE 1 EACH 100 UNIT IVP (11:50)
[2022-10-28] MEDS: atropine 0.1 mg/mL Syr 10 mL 0.5 MG IVP (12:17)
--- NOTE | 2022-10-28 12:30 | PC.NURSE ---
After deep coughing spell, patient showed bradycardia into 30's on telemetry, 0.5 atropine given per protocol. Other vitals remain stable, currently resting with heart rate at 85 on monitor.
--- NOTE | 2022-10-28 13:25 | PC.NURSE ---
Patient attempted to eat afternoon meal. Was not able to chew and swallow chicken served, even after this nurse finely chopped it. Patient would continuously chew and then spit out food. Patient did eat one soft carrot. Denies nausea. Refuses to continue with meal.
[2022-10-28] MEDS: TRAMadol 50 mg Tablet 100 MG PO (13:41)
--- NOTE | 2022-10-28 16:03 | P.PN_ITS ---
Subjective Subjective: No acute events overnight. Patient denies any nausea, vomiting. Down to 3 L oxygen supplementation with high flow nasal cannula to maintain saturation over 88%. Has remained hemodynamically stable and afebrile. Slightly confused today morning on examination but redirectable. Able to move all his arms and legs. During the day did have a coughing bout after which he had bradycardia down to 30 bpm requiring half amp of atropine. Otherwise patient has remained stable on telemetry. Documented urine output of more than 9 L yesterday. On further review of documentation of output it seems erroneous. Vitals/I&O/Wt Last Vital Signs Temp 98.6 F 10/28/22 14:00 Pulse 88 10/28/22 14:45 Resp 21 H 10/28/22 14:30 BP 120/59 10/28/22 14:00 Pulse Ox 95 10/28/22 14:30 O2 Del Method 10/28/22 14:30 O2 Flow Rate 3 10/28/22 14:30 FiO2 30 10/28/22 06:00 10/28/22 10/28/22 10/28/22 06:59 14:59 22:59 Intake Total 1634 / 5346 1700.1 / 1700.1 50 / 1750.1 Output Total 1690 / 8267 1050 / 1050 Balance -56 / -2921 650.1 / 650.1 50 / 700.1 Weight last 48 hrs Weight 162.477 kg Weight 162.477 kg Physical Exam Narrative: General: No acute distress, extubated, weak, AO x3, following commands, slightly confused HEENT: PERRLA, pupils bilaterally equal and reactive Chest: Normal vesicular breath sounds, no added sounds, equal good air entry bilaterally CVS: S1-S2 regular, no murmurs, no tachycardia, no gallops, no rubs Abdomen: Distended, surgical drains present, central surgical scar with wound VAC present. Neuro: Moving all limbs, AOx3, extubated Urinary Catheter Management: Orellana: Cath Placed During This Visit: yes, but has since been removed by the nurse Reason for Continuing Indwelling Catheter: Accurate Measurement of Urinary Output in Critically Ill Patients Urinary Catheter Date of Insertion: 10/15/22 Urinary Catheter Time of Insertion: 13:50 Date Urinary Catheter Removed: 10/10/22 Time Urinary Catheter Discontinued: 17:45 Data 10/28/22 03:44 10/28/22 03:44 Micro: Microbiology 10/25/22 10:20 Gram Stain - Final Sputum - Endotracheal Tube Aspirate Sputum Culture - Final Klebsiella pneumoniae Anabela albicans A&P Assessment and plan (1) Ventilator dependent: Most likely secondary to postoperative status in setting of obstructive sleep apnea, COPD. Difficult to extubate given postoperative status with abdominal wound VAC. Baseline sleep apnea requiring CPAP up to pressure of 12. Noncompliant at home. Extubated to heated high flow on 10/26. Oxygen supplementation keeping saturation over 88%. Continue with DuoNebs every 6 hour, budesonide twice daily. Incentive spirometry, flutter valve. 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 Status post resection of colonic anastomosis and end ileostomy formation for wound dehiscence. Wound VAC, drains as per surgical team. Tube feeds as per surgical team. (3) Septic shock: Patient met sepsis criteria: Has elevated white cell count, endorgan dysfunction in the presence of TALON, fever, likely intra-abdominal infection as a source, with possible pneumonia. Now resolved. Keep mean artery pressure 65, saturation over 90%. Vancomycin stopped as MRSA negative. Last day of meropenem on 10/31. Course extended given possibility of abscess/collection intra-abdominally. Continue with IV fluids. (4) C. difficile colitis: Positive on 10/26. Start on oral vancomycin 125 mg 4 times daily. Monitor colostomy output. (5) Intra-abdominal collection: Seen on abdominal CT scan from 10/25. Query intra-abdominal abscess. Drain present. We will continue to monitor. Continue with extended course of IV antibiotics. (6) TALON (acute kidney injury): Baseline creatinine normal to 1. Trending down. Currently stable at 1.4. Robust urine output. Keep intake/output equal. Medical reconciliation done for nephrotoxic drugs. Nw currently 1.9. Monitor BMP daily. Maintain Orellana catheter. Strict input output charting. Overall 125 cc of fluid hydration per hour. (7) Obstructive sleep apnea: Not currently using cpap at home due to malfunction of machine. ABG with evidence of hypercapnic hypoxic respiratory failure. Known restrictive lung disease and asbestosis. At baseline uses CPAP at home, unable to utilize BiPAP given abdominal surgery. Currently saturating 93% on supplemental O2, does drop down to 70% on room air. Does not typically use oxygen at home. Continue to use DuoNeb and budesonide scheduled inhalation. No current in dication for steroid use. Suspect that patient may have underlying baseline hypoxia and will likely require supplemental O2 at discharge. (8) Hypernatremia: Slight hyponatremia with sodium up to 146. Continue with D5 half NS at 100 cc/h. Continue with free water flushes at 250 every 4 hourly. Monitor BMP daily for now. (9) Hypertension: Chronic diagnosis, usually on bisoprolol-HCTZ and lisinopril. Goal blood pressure less than 140/90 mmHg with mean over 65. Restart home dose of metoprolol 50 mg twice daily. (10) Atrial fibrillation with rapid ventricular response: In a patient with known chronic atrial fibrillation, on bisoprolol in combination with HCTZ as only rate controlling medication at home. Currently rate controlled with amiodarone 400 mg twice daily. Takes Xarelto at home for anticoagulation. Off anticoagulation as per request from surgical team. Started on prophylaxis Heparin 5000 every 8 hourly. 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 Has myocardial perfusion study on 10/05/22. Ischemic work-up was negative. Currently troponin series additionally negative. No acute ST-T wave changes to suggest acute coronary syndrome. (11) Anemia: (12) Hyperkalemia: Now resolved (13) Restrictive lung disease due to kyphoscoliosis: Aware (14) COVID-19: Had COVID in early 08/2022 and was hospitalized in [place] briefly needing oxygen. Plan Plan for the day: Oxygen supplementation keeping saturation over 88%. Currently on 3 L high flow nasal cannula. Sputum culture growing Klebsiella and Anabela. Continue with meropenem with last dose on November 01 to finish a 14-day course. Continue with oral fluconazole to finish a 7-day course. Hyponatremia has resolved. For now continue with D5 half NS at 125 cc/h. Renal function slightly elevated again today to 1.8. Goal to keep intake and output equal. Continue with to 50 cc every 6 hourly of fluid free water flush. Repeat BMP in evening. Had an episode of vasovagal bradycardia after cough. Cannot do chest vest given abdominal wound. Aggressive pulmonary toilet. Hold off on any further beta- mahogany. Continue with amiodarone. Start on Mucomyst inhalation. Patient slightly confused today. Will check CT head without contrast to rule out CVA. Continue with prophylactic dose of heparin. Patient is stable to be transferred to [facility] floor once okay with the primary team. Once patient oxygen supplementation is less than 8 L patient should be stable enough to be transferred to SNF if accepted and okayed with primary team. Full code. SCDs, heparin 5000 every 8 hourly for DVT prophylaxis. Tube feeds at goal. Oral intake as per primary team. Discharge planning: Plan to discharge to SNF for wound care and further rehabitation once patient is medically and surgically stable. Select long-term facility will be difficult as they would want patient to be intubated for at least 21 days prior to transfer or with a trach. Patient should be stable enough to transfer or discharge to SNF once okay with primary team. Thank you for involving us in care of Mr. Voss. We will continue to follow. Please reach out to us with any questions. Care discussed in detail with patient's RN and primary team. Attestations Medical Necessity Statement*: Requires further hospitalization for management of hypoxic respiratory failure, ventilator dependence post extubation 3 days ago, postoperative care for open laparotomy secondary to wound dehiscence, TALON, hypernatremia Time Spent in Patient Care: Greater than 35 minutes Coding Level of Care Code Acute Code for Chg Fwd Diagnoses Ventilator dependent Z99.11 Status post left hemicolectomy Z90.49 Septic shock A41.9; R65.21 C. difficile colitis A04.72 Intra-abdominal collection R18.8 TALON (acute kidney injury) N17.9 Obstructive sleep apnea G47.33 Hypernatremia E87.0 Hypertension I10 Atrial fibrillation with rapid ventricular response I48.91 Anemia D64.9 Hyperkalemia E87.5 Restrictive lung disease due to kyphoscoliosis J98.4; M41.9 COVID-19 U07.1
[2022-10-28 17:28] LABS: Anion Gap 10.4 (5-19); Blood Urea Nitrogen 33 mg/dL (8-23); Calcium 8.6 mg/dL (8.5-10.5); Carbon Dioxide 27 mmol/L (22-29); Chloride 107 mmol/L (98-107); Glomerular Filtration Rate 50.5 mL/min (90-130); Glucose 115 mg/dL (65-115); Osmolality Calculated 296 mOsm/kg (285-295); Potassium 5.4 mmol/L (3.5-5.1); Sodium 139 mmol/L (136-145)
[2022-10-28] MEDS: guaiFENesin 600 mg Tablet PO (17:31)
[2022-10-28] MEDS: trazodone 150 mg Tablet 300 MG PO (21:40)
[2022-10-28] MEDS: simethicone 80 mg Chew 40 MG PO (21:40)
[2022-10-28] MEDS: HYDROmorphone 1 mg/mL INJ 1 mL 0.5 MG IVP (21:43)
[2022-10-29] VITALS (32 sets, daily range): BP systolic 98–170; BP diastolic 46–94; PULSE 68–100; RESP 22–40; TEMP 36.8–36.9; O2SAT 88–100; BMI 43.4
[2022-10-29] MEDS: meropenem 1,000 MG in sodium chloride 0.9% (plus) 50 ML 100 MG IV ×4 (00:03→23:23)
[2022-10-29] MEDS: dextrose 5%-sod chloride 0.45% 1,000 ML 100 ML IV ×2 (00:04→06:11)
[2022-10-29] MEDS: ipratropium 0.5 mg/2.5 mL Neb INHALATION ×4 (01:53→19:46)
[2022-10-29] MEDS: levalbuterol 0.63 mg/3 mL Neb INHALATION ×4 (01:54→19:46)
[2022-10-29] MEDS: heparin 5,000 unit/mL INJ 1 mL 5000 UNIT SUBCUT ×3 (02:17→17:49)
[2022-10-29 02:47] LABS: Basophils # 0.1 10^3/uL (0.0-0.1); Basophils % 0.5 %; Eosinophils # 0.3 10^3/uL (0.0-0.8); Eosinophils % 2.6 %; Hemoglobin 8.7 g/dL (11.7-16.6); Lymphocytes # 1.3 10^3/uL (0.8-4.8); Lymphocytes % 10.5 %; Mean Corpuscular HGB Conc 28.1 g/dL (30.0-36.0); Mean Corpuscular Hemoglobin 31.1 pg (28.0-34.0); Mean Corpuscular Volume 110.7 fl (80-94); Mean Platelet Volume 9.7 fL (7.4-10.4); Monocytes % 8.2 %; Neutrophils # 9.18 10^3/uL (1.8-7.7); Neutrophils % 73.4 %; Nucleated Red Blood Cells % 0 %; Platelet Count 295 10^3/cmm (130-400); Red Cell Distribution Width 16.6 % (12.1-15.1); White Blood Count 12.5 10^3/uL (4.0-10.0)
[2022-10-29 03:09] LABS: Magnesium 1.9 mg/dL (1.7-2.3)
[2022-10-29 03:10] LABS: Alanine Aminotransferase 19 U/L (0-41); Albumin Level 2.9 g/dL (3.5-5.2); Alkaline Phosphatase 94 U/L (40-130); Anion Gap 12.8 (5-19); Aspartate Amino Transferase 19 U/L (0-40); Blood Urea Nitrogen 33 mg/dL (8-23); Calcium 8.4 mg/dL (8.5-10.5); Carbon Dioxide 26 mmol/L (22-29); Chloride 109 mmol/L (98-107); Globulin 2.8 g/dL (1.3-4.6); Glomerular Filtration Rate 46.7 mL/min (90-130); Glucose 127 mg/dL (65-115); Osmolality Calculated 303 mOsm/kg (285-295); Potassium 5.8 mmol/L (3.5-5.1); Sodium 142 mmol/L (136-145); Total Bilirubin 0.2 mg/dL (0.15-1.2); Total Protein 5.7 g/dL (6.6-8.7)
--- NOTE | 2022-10-29 06:23 | PC.NURSE ---
Around 2029, pt's wound vac indicated blockage. I checked the seal, detached and reattached the cannister, and then notified Dr Soares of the wound vac status. He stated that I could change the wound vac at that time. Once the abdomen was cleaned with chlorahex, I turned off the wound vac suction, clamped both ends of the suction tubing, then removed the old dressing. This consisted of one long bass foam, one smaller bass foam, and three small white foam pieces. The entire wound bed was then cleaned with betadine. Exact matching pieces of foam were measured and cut, then placed into the wound bed, next applying the clear adhesive sheet. Once this was complete, I cut a small hole into the center of the largest section of bass foam. After attaching and sealing the suction tubing, the wound vac was turned on. The machine completed a leak check and set to 125mm low continuous suction. Pt was medicated with 0.5mg of IV dilaudid, he tolerated this procedure and is resting peacefully.
[2022-10-29] MEDS: amiodarone 200 mg Tablet 400 MG PO (08:05)
[2022-10-29] MEDS: fluconazole 100 mg Tablet 200 MG PO (08:05)
[2022-10-29] MEDS: guaiFENesin 600 mg Tablet PO ×2 (08:05→17:49)
[2022-10-29] MEDS: pantoprazole 40 mg SDV IVP (08:05)
[2022-10-29] MEDS: nystatin powder 15 gm Btl 1 APPLIC TOPICAL ×2 (08:06→23:25)
[2022-10-29] MEDS: chlorhexidine gluconate 4% Btl 118 mL 1 APPLIC TOPICAL (08:13)
[2022-10-29] MEDS: budesonide 0.5 mg/2 mL Neb INHALATION ×2 (08:20→19:46)
[2022-10-29] MEDS: insulin regular-human 10 UNIT in SYRINGE 1 EACH IVP (09:05)
[2022-10-29] MEDS: metoprolol tartrate 25 mg Tablet 50 MG PO (09:10)
[2022-10-29 09:23] LABS: Glucose Point of Care 110 mg/dL (70-110)
--- NOTE | 2022-10-29 10:29 | PC.CHAP ---
Pastoral Care Encounter/Spiritual Assessment Type of Contact [] Declined software support engineer visit [] Patient/Family/Request visit [] Outpatient visit [] Follow-up visit [] Physician referral [] Code/Alert [x] Routine visit [] Staff referral [] Actively dying [x] Patient sleeping [] Family support [] [] Out of room [] Palliative care [] [] Receiving care in room [] Pre-surgical visit [] Trauma [] Long length of stay [x] ICU visit [x] Other: we continue to pray with PT.. some statements not normal... Relational/Emotional Strength [] Patient feels connected with others/family/visitors/staff [] Distress [] Loneliness/isolation [] Abandonment Spirituality of Patient [] Person of Maryanne [] Attends Sabianism of their Maryanne [] Believes in Prayer [] Reads Bible or Uatsdin materials [] There are Spiritual issues to be addressed Offensive Coordinator 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 [x] Prayer [] Active listening [] Non-anxious presence [] Spiritual/emotional support [] Crisis/trauma care [] Spiritual counseling [] Bereavement support [] Provided bereavement packet [] Provided Bible/devotional materials [] Provided toy/stuffed animal, coloring book to patient or family member [] Provided Communion [] Anointing/[place] [] Salvation [x] Completed spiritual assessment [] Other: Impact on Illness or Injury [] Angry [] Fearful [] Anxious [] Often cries [] Exhaustion [] Unable to work [] Unable to attend temple [] Unable to walk/stand [] Unable to read [] Unable to drive [] Unable to eat/drink [] Unable to sleep [] Unable to be with family [] Patient intubated [] Other: Summary Time spent with patient
--- NOTE | 2022-10-29 13:41 | PM.PN ---
Subjective Subjective: Patient was seen and examined this morning, he is was saturating well on minimal supplemental oxygen through nasal cannula, has episodes of pauses during coughing spells. Has remained afebrile, continue to have good urine output, hypernatremia has resolved, serum potassium this morning was 5.8, hyperkalemia cocktail has been given, plan is to monitor with repeat BMP, IV fluids has been discontinued, patient is currently 10 Ls positive. Will cut back on the dose of amiodarone as well as p.o. metoprolol: Currently will start him on amiodarone 200 mg p.o. daily, as well as metoprolol 25 p.o. twice daily. Continue with telemetry monitoring. Medications: Reviewed: Yes Medication Review Details: Generic Name Dose Route Start Last Admin Trade Name Freq PRN Reason Stop Dose Admin Acetaminophen 650 mg 10/13/22 19:53 10/13/22 20:21 Acetaminophen 32 5 Mg Tablet PO 650 mg Q6H PRN Administration FEVER Hydrocodone Bitart /Acetaminophen 1 tab 10/27/22 09:12 10/28/22 15:52 Hydrocodone-Acet aminophen 7.5-325 Mg Tablet PO 1 tab Q6H PRN Administration MODERATE TO SEVER E PAIN Albuterol Sulfate 2.5 mg 10/22/22 10:33 10/26/22 07:35 Albuterol 2.5 Mg /3 Ml Neb INHALATION 2.5 mg Q6H.RESP PRN Administration SHORTNESS OF EDWIGE TH Atorvastatin Calci um 20 mg 10/13/22 21:00 10/14/22 20:20 Atorvastatin 40 Mg Tablet PO 20 mg BEDTIME SOFIA Administration Budesonide 0.5 mg 10/08/22 20:00 10/29/22 08:20 Budesonide 0.5 M g/2 Ml Neb INHALATION 0.5 mg BID.RESPIRATORY S CH Administration Chlorhexidine Gluc stef 1 applic 10/19/22 02:00 10/29/22 08:13 Chlorhexidine Gl uconate 4% Btl 118 Ml TOPICAL 1 applic DAILY SOFIA Administration Fluconazole 200 mg 10/26/22 09:00 10/29/22 08:05 Fluconazole 100 Mg Tablet PO 11/02/22 08:59 200 mg DAILY SOFIA Administration Folic Acid 1 mg 10/13/22 22:00 10/14/22 22:01 Folic Acid 1 Mg Tablet PO 1 mg DAILY@2200 SOFIA Administration Guaifenesin 600 mg 10/28/22 18:00 10/29/22 08:05 Guaifenesin 600 Mg Tablet PO 600 mg BID SOFIA Administration Heparin Sodium (Po rcine) 5,000 unit 10/26/22 10:30 10/29/22 09:37 Heparin 5,000 Un it/Ml Inj 1 Ml SUBCUT 5,000 unit Q8H SOFIA Administration Hydralazine HCl 10 mg 10/11/22 08:39 10/26/22 13:33 Hydralazine 20 M g/Ml Inj 1 Ml IVP 10 mg Q6H PRN Administration SBP >160 Hydromorphone HCl 0.5 mg 10/21/22 13:57 10/28/22 21:43 Hydromorphone 1 Mg/Ml Inj 1 Ml IVP 0.5 mg Q4H PRN Administration PAIN Meropenem 1,000 mg / Sodium 50 mls @ 100 mls/ hr 10/25/22 15:00 10/29/22 06:11 Chloride IV 10/31/22 14:59 100 mls/hr Q8H SOFIA Administration Ipratropium Bromid e 0.5 mg 10/26/22 15:55 10/29/22 08:20 Ipratropium 0.5 Mg/2.5 Ml Neb INHALATION 0.5 mg Q6H.RESP SOFIA Administration Levalbuterol HCl 0.63 mg 10/26/22 20:00 10/29/22 08:21 Levalbuterol 0.6 3 Mg/3 Ml Neb INHALATION 0.63 mg Q6H.RESP SOFIA Administration Metoclopramide HCl 5 mg 10/27/22 08:01 10/28/22 00:32 Metoclopramide 5 Mg/Ml Sdv 2 Ml IVP 5 mg Q6H PRN Administration NAUSEA AND VOMITI NG Nystatin 1 applic 10/26/22 21:00 10/29/22 08:06 Nystatin Powder 15 Gm Btl TOPICAL 1 applic 0900,2100 SOFIA Administration Ondansetron HCl 4 mg 10/08/22 13:09 10/27/22 04:23 Ondansetron 2 Mg /Ml Sdv 2 Ml IVP 4 mg Q6H PRN Administration NAUSEA AND VOMITI NG Pantoprazole Sodiu m 40 mg 10/18/22 09:00 10/29/22 08:05 Pantoprazole 40 Mg Sdv IVP 40 mg DAILY SOFIA Administration Simethicone 40 mg 10/14/22 00:41 10/28/22 21:40 Simethicone 80 M g Chew PO 40 mg TID PRN Administration HICCUPS Tramadol HCl 100 mg 10/26/22 13:57 10/28/22 13:41 Tramadol 50 Mg T ablet PO 100 mg Q6H PRN Administration MODERATE PAIN Trazodone HCl 300 mg 10/13/22 21:00 10/28/22 21:40 Trazodone 150 Mg Tablet PO 300 mg BEDTIME SOFIA Administration Vancomycin HCl 125 mg 10/26/22 17:00 10/29/22 09:04 Vancomycin 1,000 Mg Oral Jovana (Btl) PO 125 mg QID SOFIA Administration Vitals/I&O/Wt Last Vital Signs Temp 98.4 F 10/29/22 07:00 Pulse 76 10/29/22 13:00 Resp 35 H 10/29/22 13:00 BP 142/64 10/29/22 13:00 Pulse Ox 96 10/29/22 11:00 O2 Del Method 10/29/22 08:21 O2 Flow Rate 2 10/29/22 08:21 FiO2 30 10/28/22 06:00 10/28/22 10/29/22 10/29/22 22:59 06:59 14:59 Intake Total 340 / 2040.1 4508.000 / 6548.100 Output Total 2635 / 3685 1010 / 4695 Balance -2295 / -1644.9 3498.000 / 1853.100 Weight last 48 hrs Weight 162.069 kg Weight 162.477 kg Physical Exam Narrative: Intubated sedated on mechanical ventilation Const: COMMON NORMALS: patient oriented x3 HENMT: COMMON NORMALS: normocephalic and atraumatic HEAD & SCALP: normocephalic and atraumatic Resp: COMMON NORMALS: clear to auscultation bilaterally EFFORT & INSPECTION: Yes symmetric chest movement AUSCULTATION: clear to auscultation bilaterally OTHER: Diminished air entry bilaterally Cardio: COMMON NORMALS: regular rate, regular rhythm, S1 normal heart sound present, S2 normal heart sound present, No gallops present (Cardio), No murmurs present (Cardio), No rub (Cardio) and Peripheral pulses 2+ throughout RATE: regular rate RHYTHM: regular rhythm HEART SOUNDS: S1 normal heart sound present and S2 normal heart sound present PERIPHERAL PULSES: Peripheral pulses 2+ throughout GI: COMMON NORMALS: Soft to palpation, No hepatosplenomegaly present and no masses AUSCULTATION: Yes normoactive bowel sounds PALPATION: Yes Soft to palpation and Yes No hepatosplenomegaly present RECTAL EXAM: Yes deferred OTHER: Wound VAC in place, ostomy site clean. Extremity: COMMON NORMALS: no clubbing, cyanosis or edema and no pedal edema Neuro: COMMON NORMALS: patient oriented x3 Urinary Catheter Management: Orellana: Cath Placed During This Visit: yes, but has since been removed by the nurse Reason for Continuing Indwelling Catheter: Accurate Measurement of Urinary Output in Critically Ill Patients Urinary Catheter Date of Insertion: 10/15/22 Urinary Catheter Time of Insertion: 13:50 Date Urinary Catheter Removed: 10/10/22 Time Urinary Catheter Discontinued: 17:45 Data 10/29/22 02:04 10/29/22 02:04 Micro: Microbiology 10/25/22 10:20 Gram Stain - Final Sputum - Endotracheal Tube Aspirate Sputum Culture - Final Klebsiella pneumoniae Anabela albicans A&P Assessment and plan (1) Ventilator dependent: Most likely secondary to postoperative status in setting of obstructive sleep apnea, COPD. Difficult to extubate given postoperative status with abdominal wound VAC. Baseline sleep apnea requiring CPAP up to pressure of 12. Noncompliant at home. Extubated to heated high flow on 10/26. Oxygen supplementation keeping saturation over 88%. Continue with DuoNebs every 6 hour, budesonide twice daily. Incentive spirometry, flutter valve. 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 Status post resection of colonic anastomosis and end ileostomy formation for wound dehiscence. Wound VAC, drains as per surgical team. Tube feeds as per surgical team. (3) Septic shock: Patient met sepsis criteria: Has elevated white cell count, endorgan dysfunction in the presence of TALON, fever, likely intra-abdominal infection as a source, with possible pneumonia. Now resolved. Keep mean artery pressure 65, saturation over 90%. Vancomycin stopped as MRSA negative. Last day of meropenem on 10/31. Course extended given possibility of abscess/collection intra-abdominally. Continue with IV fluids. (4) C. difficile colitis: Positive on 10/26. Start on oral vancomycin 125 mg 4 times daily. Monitor colostomy output. (5) Intra-abdominal collection: Seen on abdominal CT scan from 10/25. Query intra-abdominal abscess. Drain present. We will continue to monitor. Continue with extended course of IV antibiotics. (6) TALON (acute kidney injury): Baseline creatinine normal to 1. Trending down. Currently stable at 1.4. Robust urine output. Keep intake/output equal. Medical reconciliation done for nephrotoxic drugs. Nw currently 1.9. Monitor BMP daily. Maintain Orellana catheter. Strict input output charting. Overall 125 cc of fluid hydration per hour. (7) Obstructive sleep apnea: Not currently using cpap at home due to malfunction of machine. ABG with evidence of hypercapnic hypoxic respiratory failure. Known restrictive lung disease and asbestosis. At baseline uses CPAP at home, unable to utilize BiPAP given abdominal surgery. Currently saturating 93% on supplemental O2, does drop down to 70% on room air. Does not typically use oxygen at home. Continue to use DuoNeb and budesonide scheduled inhalation. No current indication for steroid use. Suspect that patient may have underlying baseline hypoxia and will likely require supplemental O2 at discharge. (8) Hypernatremia: Slight hyponatremia with sodium up to 146. Continue with D5 half NS at 100 cc/h. Continue with free water flushes at 250 every 4 hourly. Monitor BMP daily for now. (9) Hypertension: Chronic diagnosis, usually on bisoprolol-HCTZ and lisinopril. Goal blood pressure less than 140/90 mmHg with mean over 65. Restart home dose of metoprolol 50 mg twice daily. (10) Atrial fibrillation with rapid ventricular response: In a patient with known chronic atrial fibrillation, on bisoprolol in combination with HCTZ as only rate controlling medication at home. Currently rate controlled with amiodarone 400 mg twice daily. Takes Xarelto at home for anticoagulation. Off anticoagulation as per request from surgical team. Started on prophylaxis Heparin 5000 every 8 hourly. 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 Has myocardial perfusion study on 10/05/22. Ischemic work-up was negative. Currently troponin series additionally negative. No acute ST-T wave changes to suggest acute coronary syndrome. (11) Anemia: (12) Hyperkalemia: Now resolved (13) Restrictive lung disease due to kyphoscoliosis: Aware (14) COVID-19: Had COVID in early 08/2022 and was hospitalized in [place] briefly needing oxygen. Plan Plan for today: Cut back on the dose of amiodarone as well as p.o. metoprolol: Currently will start him on amiodarone 200 mg p.o. daily, as well as metoprolol 25 p.o. twice daily. If he continues to have such spells, will have to hold completely on rocío blocking agents. Involve cardiology in the care of the patient. No pulm critical care coverage is available till of this month. CODE STATUS: Full code DVT prophylaxis: On heparin subcu Disposition: Placement to SNF for wound care and rehab, once patient is stable for discharge. Attestations Medical Necessity Statement*: Per primary team Coding Level of Care Code Acute Code for Chg Fwd Diagnoses Ventilator dependent Z99.11 Status post left hemicolectomy Z90.49 Septic shock A41.9; R65.21 C. difficile colitis A04.72 Intra-abdominal collection R18.8 TALON (acute kidney injury) N17.9 Obstructive sleep apnea G47.33 Hypernatremia E87.0 Hypertension I10 Atrial fibrillation with rapid ventricular response I48.91 Anemia D64.9 Hyperkalemia E87.5 Restrictive lung disease due to kyphoscoliosis J98.4; M41.9 COVID-19 U07.1
--- NOTE | 2022-10-29 14:31 | P.PN_ITS ---
Subjective Subjective: Positive colostomy output. Tolerating tube feeds at goal. He is tolerating a regular diet but only able to eat a small amount of food currently. No emesis. Positive colostomy output Vitals/I&O/Wt Last Vital Signs Temp 98.4 F 10/29/22 07:00 Pulse 79 10/29/22 14:10 Resp 30 H 10/29/22 14:00 BP 142/64 10/29/22 13:00 Pulse Ox 99 10/29/22 14:00 O2 Del Method 10/29/22 14:00 O2 Flow Rate 3 10/29/22 14:00 FiO2 30 10/28/22 06:00 10/28/22 10/29/22 10/29/22 22:59 06:59 14:59 Intake Total 340 / 2040.1 4558.000 / 6598.100 240 / 240 Output Total 2635 / 3685 1010 / 4695 390 / 390 Balance -2295 / -1644.9 3548.000 / 1903.100 -150 / -150 Weight last 48 hrs Weight 357 lb 4.8 oz Weight 358 lb 3.2 oz Physical Exam Narrative: GEN: NAD, AAOx3 Abdomen soft, nondistended, appropriately tender, no g/r/m Wound VAC in place with appropriate output. No erythema or exudate Ostomy viable and producing Drains 1&2 SS drain #3 is draining purulence Urinary Catheter Management: Orellana: Cath Placed During This Visit: yes, but has since been removed by the nurse Reason for Continuing Indwelling Catheter: Accurate Measurement of Urinary Output in Critically Ill Patients Urinary Catheter Date of Insertion: 10/15/22 Urinary Catheter Time of Insertion: 13:50 Date Urinary Catheter Removed: 10/10/22 Time Urinary Catheter Discontinued: 17:45 Data 10/29/22 02:04 10/29/22 02:04 Micro: Microbiology 10/25/22 10:20 Gram Stain - Final Sputum - Endotracheal Tube Aspirate Sputum Culture - Final Klebsiella pneumoniae Anabela albicans A&P Assessment and plan (1) Colon cancer: (2) Status post left hemicolectomy: (3) C. 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 At tempting closure via wound VAC vancomycin orally for 10 days- last day Nov 05 Drain #3 abuts intraabdominal fluid collection and appears to be draining that collection now Hospitalist following-appreciate input Attestations Medical Necessity Statement*: Patient requires multiple more nights in the hospital for intensive care following anastomotic leak after left hemicolectomy for colon cancer Coding Level of Care Code Acute Code for Chg Fwd Diagnoses Colon cancer C18.9 Status post left hemicolectomy Z90.49 C. difficile colitis A04.72 Intra-abdominal collection R18.8
[2022-10-29] MEDS: HYDROmorphone 1 mg/mL INJ 1 mL 0.5 MG IVP ×2 (16:18→20:02)
--- NOTE | 2022-10-29 18:44 | PC.NURSE ---
Pt has had intermittent confusion throughout this shift.
[2022-10-29] MEDS: metoclopramide 5 mg/mL SDV 2 mL IVP (20:02)
--- NOTE | 2022-10-29 23:54 | ECG_ITS ---
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 Measurements Intervals [place] Rate: 94 P: 0 [place]: 0 QRS: 21 QRSD: 120 T: 60 QT: 358 QTc: 448 Interpretive Statements ATRIAL FIBRILLATION MODERATE INTRAVENTRICULAR CONDUCTION DELAY [110+ ms QRS DURATION] MODERATE ST DEPRESSION [0.05+ mV ST DEPRESSION] Compared to ECG 10/08/2022 22:22:33 Intraventricular conduction delay now present ST (T wave) deviation now present Myocardial infarct finding no longer present T-wave abnormality no longer present Possible ischemia no longer present Electronically Signed On 10-30-2022 16:04:44 PULVERIZER OPERATOR by Yancy Valentin M.D. [id number]
[2022-10-30] VITALS (34 sets, daily range): BP systolic 107–145; BP diastolic 49–81; PULSE 71–111; RESP 23–48; TEMP 37.2–37.7; O2SAT 78–98; BMI 43.4
--- NOTE | 2022-10-30 00:18 | PC.NURSE ---
At beginning of shift, Pt removed NG. After talking with pt about replacing NG, he initially refused and has continued to refuse replacing the NG tube, in addition to refusing the 2200 medications. MD is aware. Around 0 the bedside cardiac/vascular sonographer displayed an ST change. The pt denies chest pain at this time. Although he has been intermittantly short of breath and tachypnic. I notified Dr Collier and have ordered and completed a 12 lead EKG
[2022-10-30] MEDS: levalbuterol 0.63 mg/3 mL Neb INHALATION ×4 (01:40→20:12)
[2022-10-30] MEDS: ipratropium 0.5 mg/2.5 mL Neb INHALATION ×4 (01:40→20:12)
[2022-10-30] MEDS: heparin 5,000 unit/mL INJ 1 mL 5000 UNIT SUBCUT ×3 (02:33→17:51)
[2022-10-30 03:10] LABS: Basophils # 0.1 10^3/uL (0.0-0.1); Basophils % 0.6 %; Eosinophils # 0.2 10^3/uL (0.0-0.8); Eosinophils % 1.6 %; Hematocrit 30.3 % (42.0-52.0); Hemoglobin 8.7 g/dL (11.7-16.6); Lymphocytes # 1.1 10^3/uL (0.8-4.8); Lymphocytes % 9.8 %; Mean Corpuscular HGB Conc 28.7 g/dL (30.0-36.0); Mean Corpuscular Volume 107.8 fl (80-94); Monocytes # 0.8 10^3/uL (0.2-0.9); Monocytes % 7.5 %; Neutrophils # 8.25 10^3/uL (1.8-7.7); Neutrophils % 76.2 %; Nucleated Red Blood Cells % 0 %; Platelet Count 278 10^3/cmm (130-400); Red Blood Count 2.81 10^6/uL (4.1-5.3); Red Cell Distribution Width 16.2 % (12.1-15.1); White Blood Count 10.8 10^3/uL (4.0-10.0)
[2022-10-30 03:18] LABS: Magnesium 1.8 mg/dL (1.7-2.3); Phosphorus 4.2 mg/dL (2.5-4.5)
[2022-10-30 03:22] LABS: Alanine Aminotransferase 16 U/L (0-41); Albumin Level 2.8 g/dL (3.5-5.2); Alkaline Phosphatase 100 U/L (40-130); Anion Gap 8.8 (5-19); Aspartate Amino Transferase 16 U/L (0-40); Blood Urea Nitrogen 31 mg/dL (8-23); Calcium 8.8 mg/dL (8.5-10.5); Carbon Dioxide 32 mmol/L (22-29); Chloride 109 mmol/L (98-107); Globulin 3.5 g/dL (1.3-4.6); Glomerular Filtration Rate 50.5 mL/min (90-130); Glucose 113 mg/dL (65-115); Osmolality Calculated 305 mOsm/kg (285-295); Potassium 5.8 mmol/L (3.5-5.1); Sodium 144 mmol/L (136-145); Total Bilirubin 0.2 mg/dL (0.15-1.2); Total Protein 6.3 g/dL (6.6-8.7)
[2022-10-30] MEDS: HYDROmorphone 1 mg/mL INJ 1 mL 0.5 MG IVP ×3 (05:32→21:57)
[2022-10-30] MEDS: meropenem 1,000 MG in sodium chloride 0.9% (plus) 50 ML 100 MG IV ×3 (06:17→23:58)
[2022-10-30] MEDS: amiodarone 200 mg Tablet PO (08:03)
[2022-10-30] MEDS: metoprolol tartrate 25 mg Tablet PO ×2 (08:04→21:57)
[2022-10-30] MEDS: fluconazole 100 mg Tablet 200 MG PO (08:04)
[2022-10-30] MEDS: pantoprazole 40 mg SDV IVP (08:04)
[2022-10-30] MEDS: guaiFENesin 600 mg Tablet PO ×2 (08:04→17:51)
[2022-10-30] MEDS: chlorhexidine gluconate 4% Btl 118 mL 1 APPLIC TOPICAL (08:08)
[2022-10-30] MEDS: nystatin powder 15 gm Btl 1 APPLIC TOPICAL ×2 (08:09→21:22)
[2022-10-30] MEDS: budesonide 0.5 mg/2 mL Neb INHALATION ×2 (08:58→20:12)
--- NOTE | 2022-10-30 10:43 | PC.CHAP ---
Pastoral Care Encounter/Spiritual Assessment Type of Contact [] Declined customer contact specialist visit [] Patient/Family/Request visit [] Outpatient visit [] Follow-up visit [] Physician referral [] Code/Alert [x] Routine visit [] Staff referral [] Actively dying [] Patient sleeping [] Family support [] [] Out of room [] Palliative care [] [] Receiving care in room [] Pre-surgical visit [] Trauma [] Long length of stay [x] ICU visit [x] Other: visited with PT he recognizes me, and tries to make conversation without success.. Relational/Emotional Strength [] Patient feels connected with others/family/visitors/staff [] Distress [] Loneliness/isolation [] Abandonment Spirituality of Patient [] Person of Maryanne [] Attends Sabianist of their Maryanne [] Believes in Prayer [] Reads Bible or Oriental Orthodox materials [] There are Spiritual issues to be addressed Car Sealer 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 [x] Prayer [] Active listening [] Non-anxious presence [] Spiritual/emotional support [] Crisis/trauma care [] Spiritual counseling [] Bereavement support [] Provided bereavement packet [] Provided Bible/devotional materials [] Provided toy/stuffed animal, coloring book to patient or family member [] Provided Communion [] Anointing/Brillion [] Salvation [x] Completed spiritual assessment [] Other: Impact on Illness or Injury [] Angry [] Fearful [] Anxious [] Often cries [] Exhaustion [] Unable to work [] Unable to attend buddhist [] Unable to walk/stand [] Unable to read [] Unable to drive [] Unable to eat/drink [] Unable to sleep [] Unable to be with family [] Patient intubated [] Other: Summary Time spent with patient
--- NOTE | 2022-10-30 10:49 | PM.PN ---
Subjective Subjective: Positive colostomy output. He pulled out his NG tube overnight and is refusing a new one. He is tolerating a regular diet but only able to eat a small amount of food currently. No emesis. Positive colostomy output Vitals/I&O/Wt Last Vital Signs Temp 99.9 F H 10/30/22 08:00 Pulse 84 10/30/22 10:00 Resp 32 H 10/30/22 10:00 BP 143/81 10/30/22 10:00 Pulse Ox 94 10/30/22 09:00 O2 Del Method 10/30/22 08:40 O2 Flow Rate 4 10/30/22 08:40 FiO2 30 10/28/22 06:00 10/29/22 10/30/22 10/30/22 22:59 06:59 14:59 Intake Total 5370 / 5610 2900 / 8510 170 / 170 Output Total 2835 / 3225 835 / 4060 Balance 2535 / 2385 2065 / 4450 170 / 170 Weight last 48 hrs Weight 357 lb 4.8 oz Weight 357 lb 4.8 oz Physical Exam Narrative: GEN: NAD, AAOx3 Abdomen soft, nondistended, appropriately tender, no g/r/m Wound VAC in place with appropriate output. No erythema or exudate Ostomy viable and producing Drains 1&2 SS drain #3 is draining purulence Urinary Catheter Management: Orellana: Cath Placed During This Visit: yes, but has since been removed by the nurse Reason for Continuing Indwelling Catheter: Accurate Measurement of Urinary Output in Critically Ill Patients Urinary Catheter Date of Insertion: 10/15/22 Urinary Catheter Time of Insertion: 13:50 Date Urinary Catheter Removed: 10/10/22 Time Urinary Catheter Discontinued: 17:45 Data 10/30/22 02:30 10/30/22 02:30 A&P Assessment and plan (1) Colon cancer: (2) Status post left hemicolectomy: (3) C. 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 Attempting closure via wound VAC vancomycin orally for 10 days- last day Nov 05 Drain #3 abuts intraabdominal fluid collection and appears to be draining that collection now Hospitalist following-appreciate input Hopefully he can be discharged to a retirement facility on Saturday Attestations Medical Necessity Statement*: Patient requires multiple more nights in the hospital for intensive care following anastomotic leak after left hemicolectomy for colon cancer Coding Level of Care Code Acute Code for Chg Fwd Diagnoses Colon cancer C18.9 Status post left hemicolectomy Z90.49 C. difficile colitis A04.72 Intra-abdominal collection R18.8
[2022-10-30] MEDS: sodium polystyrene sulfonate 15 gm/60 mL Btl PO ×2 (12:40→17:51)
[2022-10-30] MEDS: insulin regular-human 10 UNIT in SYRINGE 1 EACH IVP (12:41)
--- NOTE | 2022-10-30 15:19 | P.PN_ITS ---
Subjective Subjective: No reported event of bradycardia or pauses overnight, heart rate is decently controlled, continue to have good urine output, working with physical therapy. Medications: Reviewed: Yes Medication Review Details: Generic Name Dose Route Start Last Admin Trade Name Freq PRN Reason Stop Dose Admin Acetaminophen 650 mg 10/13/22 19:53 10/13/22 20:21 Acetaminophen 32 5 Mg Tablet PO 650 mg Q6H PRN Administration FEVER Hydrocodone Bitart /Acetaminophen 1 tab 10/27/22 09:12 10/28/22 15:52 Hydrocodone-Acet aminophen 7.5-325 Mg Tablet PO 1 tab Q6H PRN Administration MODERATE TO SEVER E PAIN Albuterol Sulfate 2.5 mg 10/22/22 10:33 10/26/22 07:35 Albuterol 2.5 Mg /3 Ml Neb INHALATION 2.5 mg Q6H.RESP PRN Administration SHORTNESS OF EDWIGE TH Amiodarone HCl 200 mg 10/30/22 09:00 10/30/22 08:03 Amiodarone 200 M g Tablet PO 200 mg DAILY SOFIA Administration Atorvastatin Calci um 20 mg 10/13/22 21:00 10/14/22 20:20 Atorvastatin 40 Mg Tablet PO 20 mg BEDTIME SOFIA Administration Budesonide 0.5 mg 10/08/22 20:00 10/30/22 08:58 Budesonide 0.5 M g/2 Ml Neb INHALATION 0.5 mg BID.RESPIRATORY S CH Administration Chlorhexidine Gluc stef 1 applic 10/19/22 02:00 10/30/22 08:08 Chlorhexidine Gl uconate 4% Btl 118 Ml TOPICAL 1 applic DAILY SOFIA Administration Fluconazole 200 mg 10/26/22 09:00 10/30/22 08:04 Fluconazole 100 Mg Tablet PO 11/02/22 08:59 200 mg DAILY SOFIA Administration Folic Acid 1 mg 10/13/22 22:00 10/14/22 22:01 Folic Acid 1 Mg Tablet PO 1 mg DAILY@2200 SOFIA Administration Guaifenesin 600 mg 10/28/22 18:00 10/30/22 08:04 Guaifenesin 600 Mg Tablet PO 600 mg BID SOFIA Administration Heparin Sodium (Po rcine) 5,000 unit 10/26/22 10:30 10/30/22 11:44 Heparin 5,000 Un it/Ml Inj 1 Ml SUBCUT 5,000 unit Q8H SOFIA Administration Hydralazine HCl 10 mg 10/11/22 08:39 10/26/22 13:33 Hydralazine 20 M g/Ml Inj 1 Ml IVP 10 mg Q6H PRN Administration SBP >160 Hydromorphone HCl 0.5 mg 10/21/22 13:57 10/30/22 13:47 Hydromorphone 1 Mg/Ml Inj 1 Ml IVP 0.5 mg Q4H PRN Administration PAIN Meropenem 1,000 mg / Sodium 50 mls @ 100 mls/ hr 10/25/22 15:00 10/30/22 07:39 Chloride IV 10/31/22 14:59 Infused Q8H SOFIA Infusion Ipratropium Bromid e 0.5 mg 10/26/22 15:55 10/30/22 08:58 Ipratropium 0.5 Mg/2.5 Ml Neb INHALATION 0.5 mg Q6H.RESP SOFIA Administration Levalbuterol HCl 0.63 mg 10/26/22 20:00 10/30/22 08:58 Levalbuterol 0.6 3 Mg/3 Ml Neb INHALATION 0.63 mg Q6H.RESP SOFIA Administration Metoclopramide HCl 5 mg 10/27/22 08:01 10/29/22 20:02 Metoclopramide 5 Mg/Ml Sdv 2 Ml IVP 5 mg Q6H PRN Administration NAUSEA AND VOMITI NG Metoprolol Tartrat e 25 mg 10/29/22 21:00 10/30/22 08:04 Metoprolol Tartr ate 25 Mg Tablet PO 25 mg BID@0900,2100 SOFIA Administration Nystatin 1 applic 10/26/22 21:00 10/30/22 08:09 Nystatin Powder 15 Gm Btl TOPICAL 1 applic 0900,2100 SOFIA Administration Ondansetron HCl 4 mg 10/08/22 13:09 10/27/22 04:23 Ondansetron 2 Mg /Ml Sdv 2 Ml IVP 4 mg Q6H PRN Administration NAUSEA AND VOMITI NG Pantoprazole Sodiu m 40 mg 10/18/22 09:00 10/30/22 08:04 Pantoprazole 40 Mg Sdv IVP 40 mg DAILY SOFIA Administration Simethicone 40 mg 10/14/22 00:41 10/28/22 21:40 Simethicone 80 M g Chew PO 40 mg TID PRN Administration HICCUPS Sodium Polystyrene Sulfonate 15 gm 10/30/22 12:20 10/30/22 12:40 Sodium Polystyre ne Sulfonate 15 Gm /60 Ml Btl PO 15 gm BID SOFIA Administration Tramadol HCl 100 mg 10/26/22 13:57 10/28/22 13:41 Tramadol 50 Mg T ablet PO 100 mg Q6H PRN Administration MODERATE PAIN Trazodone HCl 300 mg 10/13/22 21:00 10/29/22 23:12 Trazodone 150 Mg Tablet PO Not Given BEDTIME SOFIA Vancomycin HCl 125 mg 10/26/22 17:00 10/30/22 12:40 Vancomycin 1,000 Mg Oral Jovana (Btl) PO 125 mg QID SOFIA Administration Vitals/I&O/Wt Last Vital Signs Temp 99.9 F H 10/30/22 08:00 Pulse 92 10/30/22 12:00 Resp 32 H 10/30/22 13:47 BP 138/75 10/30/22 12:00 Pulse Ox 94 10/30/22 12:00 O2 Del Method 10/30/22 08:40 O2 Flow Rate 4 10/30/22 08:40 FiO2 30 10/28/22 06:00 10/30/22 10/30/22 10/30/22 06:59 14:59 22:59 Intake Total 2900 / 8510 340.1 / 340.1 Output Total 835 / 4060 Balance 2065 / 4450 340.1 / 340.1 Weight last 48 hrs Weight 162.069 kg Weight 162.069 kg Physical Exam Const: COMMON NORMALS: patient oriented x3 HENMT: COMMON NORMALS: normocephalic and atraumatic HEAD & SCALP: normocephalic and atraumatic Resp: COMMON NORMALS: clear to auscultation bilaterally EFFORT & INSPECTION: Yes symmetric chest movement AUSCULTATION: clear to auscultation bilaterally OTHER: Diminished air entry bilaterally Cardio: COMMON NORMALS: regular rate, regular rhythm, S1 normal heart sound present, S2 normal heart sound present, No gallops present (Cardio), No murmurs present (Cardio), No rub (Cardio) and Peripheral pulses 2+ throughout RATE: regular rate RHYTHM: regular rhythm HEART SOUNDS: S1 normal heart sound present and S2 normal heart sound present PERIPHERAL PULSES: Peripheral pulses 2+ throughout GI: COMMON NORMALS: Normal to inspection, nondistended, normoactive bowel sounds present, Soft to palpation, non-tender, No hepatosplenomegaly present and no masses AUSCULTATION: Yes normoactive bowel sounds PALPATION: Yes Soft to palpation and Yes No hepatosplenomegaly present RECTAL EXAM: Yes deferred OTHER: Wound VAC in place, ostomy site clean. Extremity: COMMON NORMALS: no clubbing, cyanosis or edema and no pedal edema Neuro: COMMON NORMALS: patient oriented x3 Urinary Catheter Management: Orellana: Cath Placed During This Visit: yes, but has since been removed by the nurse Reason for Continuing Indwelling Catheter: Accurate Measurement of Urinary Output in Critically Ill Patients Urinary Catheter Date of Insertion: 10/15/22 Urinary Catheter Time of Insertion: 13:50 Date Urinary Catheter Removed: 10/10/22 Time Urinary Catheter Discontinued: 17:45 Data 10/30/22 02:30 10/30/22 02:30 A&P Assessment and plan (1) Ventilator dependent: Most likely secondary to postoperative status in setting of obstructive sleep apnea, COPD. Difficult to extubate given postoperative status with abdominal wound VAC. Baseline sleep apnea requiring CPAP up to pressure of 12. Noncompliant at home. Extubated to heated high flow on 10/26. Oxygen supplementation keeping saturation over 88%. Continue with DuoNebs every 6 hour, budesonide twice daily. Incentive spirometry, flutter valve. 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 Status post resection of colonic anastomosis and end ileostomy formation for wound dehiscence. Wound VAC, drains as per surgical team. Tube feeds as per surgical team. (3) Septic shock: Patient met sepsis criteria: Has elevated white cell count, endorgan dysfunction in the presence of TALON, fever, likely intra-abdominal infection as a source, with possible pneumonia. Now resolved. Keep mean artery pressure 65, saturation over 90%. Vancomycin stopped as MRSA negative. Last day of meropenem on 10/31. Course extended given possibility of abscess/collection intra-abdominally. Continue with IV fluids. (4) C. difficile colitis: Positive on 10/26. Start on oral vancomycin 125 mg 4 times daily. Monitor colostomy output. (5) Intra-abdominal collection: Seen on abdominal CT scan from 10/25. Query intra-abdominal abscess. Drain present. We will continue to monitor. Continue with extended course of IV antibiotics. (6) TALON (acute kidney injury): Baseline creatinine normal to 1. Trending down. Currently stable at 1.4. Robust urine output. Keep intake/output equal. Medical reconciliation done for nephrotoxic drugs. Nw currently 1.9. Monitor BMP daily. Maintain Orellana catheter. Strict input output charting. Overall 125 cc of fluid hydration per hour. (7) Obstructive sleep apnea: Not currently using cpap at home due to malfunction of machine. ABG with evidence of hypercapnic hypoxic respiratory failure. Known restrictive lung disease and asbestosis. At baseline uses CPAP at home, unable to utilize BiPAP given abdominal surgery. Currently saturating 93% on supplemental O2, does drop down to 70% on room air. Does not typically use oxygen at home. Continue to use DuoNeb and budesonide scheduled inhalation. No current indication for steroid use. Suspect that patient may have underlying baseline hypoxia and will likely require supplemental O2 at discharge. (8) Hypernatremia: Slight hyponatremia with sodium up to 146. Continue with D5 half NS at 100 cc/h. Continue with free water flushes at 250 every 4 hourly. Monitor BMP daily for now. (9) Hypertension: Chronic diagnosis, usually on bisoprolol-HCTZ and lisinopril. Goal blood pressure less than 140/90 mmHg with mean over 65. Restart home dose of metoprolol 50 mg twice daily. (10) Atrial fibrillation with rapid ventricular response: In a patient with known chronic atrial fibrillation, on bisoprolol in combination with HCTZ as only rate controlling medication at home. Currently rate controlled with amiodarone 400 mg twice daily. Takes Xarelto at home for anticoagulation. Off anticoagulation as per request from surgical team. Started on prophylaxis Heparin 5000 every 8 hourly. 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 Has myocardial perfusion study on 10/05/22. Ischemic work-up was negative. Currently troponin series additionally negative. No acute ST-T wave changes to suggest acute coronary syndrome. (11) Anemia: (12) Hyperkalemia: Now resolved (13) Restrictive lung disease due to kyphoscoliosis: Aware (14) COVID-19: Had COVID in early 08/2022 and was hospitalized in [place] briefly needing oxygen. Plan Plan for today: Continue current dose of metoprolol as well as amiodarone. Hyperkalemia correction; has received dextrose and insulin, put on Kayexalate. Monitor serum potassium, monitor EKG CODE STATUS: Full code DVT prophylaxis: On heparin subcu Disposition: Placement to SNF for wound care and rehab, once patient is stable for discharge. Attestations Medical Necessity Statement*: Per primary. Coding Level of Care Code Acute Code for Chg Fwd Exam Detailed Diagnoses Ventilator dependent Z99.11 Status post left hemicolectomy Z90.49 Septic shock A41.9; R65.21 C. difficile colitis A04.72 Intra-abdominal collection R18.8 TALON (acute kidney injury) N17.9 Obstructive sleep apnea G47.33 Hypernatremia E87.0 Hypertension I10 Atrial fibrillation with rapid ventricular response I48.91 Anemia D64.9 Hyperkalemia E87.5 Restrictive lung disease due to kyphoscoliosis J98.4; M41.9 COVID-19 U07.1
[2022-10-30] MEDS: TRAMadol 50 mg Tablet 100 MG PO (21:23)
[2022-10-30] MEDS: simethicone 80 mg Chew 40 MG PO (21:23)
[2022-10-30] MEDS: trazodone 150 mg Tablet 300 MG PO (21:23)
[2022-10-31] VITALS (50 sets, daily range): BP systolic 122–166; BP diastolic 58–86; PULSE 75–103; RESP 16–38; TEMP 37–37.4; O2SAT 92–99; BMI 43.0
[2022-10-31] MEDS: ipratropium 0.5 mg/2.5 mL Neb INHALATION ×2 (02:01→08:34)
[2022-10-31] MEDS: levalbuterol 0.63 mg/3 mL Neb INHALATION ×4 (02:01→20:21)
[2022-10-31 03:13] LABS: Basophils # 0.1 10^3/uL (0.0-0.1); Basophils % 0.5 %; Eosinophils # 0.3 10^3/uL (0.0-0.8); Eosinophils % 2.7 %; Hemoglobin 8.7 g/dL (11.7-16.6); Lymphocytes # 1.1 10^3/uL (0.8-4.8); Lymphocytes % 11.8 %; Mean Corpuscular Hemoglobin 31.8 pg (28.0-34.0); Mean Corpuscular Volume 109.5 fl (80-94); Mean Platelet Volume 10.2 fL (7.4-10.4); Monocytes # 0.9 10^3/uL (0.2-0.9); Neutrophils # 6.82 10^3/uL (1.8-7.7); Neutrophils % 72.9 %; Nucleated Red Blood Cells % 0 %; Platelet Count 261 10^3/cmm (130-400); Red Blood Count 2.74 10^6/uL (4.1-5.3); Red Cell Distribution Width 16.1 % (12.1-15.1); White Blood Count 9.4 10^3/uL (4.0-10.0)
[2022-10-31] MEDS: heparin 5,000 unit/mL INJ 1 mL 5000 UNIT SUBCUT ×3 (03:35→17:38)
[2022-10-31 03:39] LABS: Anion Gap 10.4 (5-19); Blood Urea Nitrogen 30 mg/dL (8-23); Calcium 8.9 mg/dL (8.5-10.5); Carbon Dioxide 31 mmol/L (22-29); Chloride 110 mmol/L (98-107); Glomerular Filtration Rate 46.7 mL/min (90-130); Glucose 107 mg/dL (65-115); Osmolality Calculated 309 mOsm/kg (285-295); Potassium 5.4 mmol/L (3.5-5.1); Sodium 146 mmol/L (136-145)
[2022-10-31] MEDS: meropenem 1,000 MG in sodium chloride 0.9% (plus) 50 ML 100 MG IV (06:05)
[2022-10-31] MEDS: budesonide 0.5 mg/2 mL Neb INHALATION ×2 (08:34→20:21)
[2022-10-31] MEDS: TRAMadol 50 mg Tablet 100 MG PO ×2 (09:07→20:56)
[2022-10-31] MEDS: metoprolol tartrate 25 mg Tablet PO ×2 (09:07→20:57)
[2022-10-31] MEDS: fluconazole 100 mg Tablet 200 MG PO (09:08)
[2022-10-31] MEDS: guaiFENesin 600 mg Tablet PO (09:10)
[2022-10-31] MEDS: amiodarone 200 mg Tablet PO (09:10)
[2022-10-31] MEDS: sodium polystyrene sulfonate 15 gm/60 mL Btl PO ×3 (09:12→20:55)
[2022-10-31] MEDS: pantoprazole 40 mg SDV IVP (09:16)
[2022-10-31] MEDS: chlorhexidine gluconate 4% Btl 118 mL 1 APPLIC TOPICAL (09:17)
[2022-10-31] MEDS: nystatin powder 15 gm Btl 1 APPLIC TOPICAL ×2 (09:17→21:04)
--- NOTE | 2022-10-31 10:20 | PC.SOCIAL ---
IMM update IMM updated with patient at bedside. Copy of page 2 provided. Patient verbalized understanding. Copy in chart initialed, dated and timed.
--- NOTE | 2022-10-31 12:51 | P.PN_ITS ---
Subjective Subjective: Seen and examined this morning, slightly hypernatremic, robust urine output, heart rate is decently controlled.Hyperkalemia is improving. Medications: Reviewed: Yes Medication Review Details: Generic Name Dose Route Start Last Admin Trade Name Freq PRN Reason Stop Dose Admin Acetaminophen 650 mg 10/13/22 19:53 10/13/22 20:21 Acetaminophen 32 5 Mg Tablet PO 650 mg Q6H PRN Administration FEVER Hydrocodone Bitart /Acetaminophen 1 tab 10/27/22 09:12 10/28/22 15:52 Hydrocodone-Acet aminophen 7.5-325 Mg Tablet PO 1 tab Q6H PRN Administration MODERATE TO SEVER E PAIN Albuterol Sulfate 2.5 mg 10/22/22 10:33 10/26/22 07:35 Albuterol 2.5 Mg /3 Ml Neb INHALATION 2.5 mg Q6H.RESP PRN Administration SHORTNESS OF EDWIGE TH Amiodarone HCl 200 mg 10/30/22 09:00 10/30/22 08:03 Amiodarone 200 M g Tablet PO 200 mg DAILY SOFIA Administration Atorvastatin Calci um 20 mg 10/13/22 21:00 10/14/22 20:20 Atorvastatin 40 Mg Tablet PO 20 mg BEDTIME SOFIA Administration Budesonide 0.5 mg 10/08/22 20:00 10/30/22 08:58 Budesonide 0.5 M g/2 Ml Neb INHALATION 0.5 mg BID.RESPIRATORY S CH Administration Chlorhexidine Gluc stef 1 applic 10/19/22 02:00 10/30/22 08:08 Chlorhexidine Gl uconate 4% Btl 118 Ml TOPICAL 1 applic DAILY SOFIA Administration Fluconazole 200 mg 10/26/22 09:00 10/30/22 08:04 Fluconazole 100 Mg Tablet PO 11/02/22 08:59 200 mg DAILY SOFIA Administration Folic Acid 1 mg 10/13/22 22:00 10/14/22 22:01 Folic Acid 1 Mg Tablet PO 1 mg DAILY@2200 SOFIA Administration Guaifenesin 600 mg 10/28/22 18:00 10/30/22 08:04 Guaifenesin 600 Mg Tablet PO 600 mg BID SOFIA Administration Heparin Sodium (Po rcine) 5,000 unit 10/26/22 10:30 10/30/22 11:44 Heparin 5,000 Un it/Ml Inj 1 Ml SUBCUT 5,000 unit Q8H SOFIA Administration Hydralazine HCl 10 mg 10/11/22 08:39 10/26/22 13:33 Hydralazine 20 M g/Ml Inj 1 Ml IVP 10 mg Q6H PRN Administration SBP >160 Hydromorphone HCl 0.5 mg 10/21/22 13:57 10/30/22 13:47 Hydromorphone 1 Mg/Ml Inj 1 Ml IVP 0.5 mg Q4H PRN Administration PAIN Meropenem 1,000 mg / Sodium 50 mls @ 100 mls/ hr 10/25/22 15:00 10/30/22 07:39 Chloride IV 10/31/22 14:59 Infused Q8H SOFIA Infusion Ipratropium Bromid e 0.5 mg 10/26/22 15:55 10/30/22 08:58 Ipratropium 0.5 Mg/2.5 Ml Neb INHALATION 0.5 mg Q6H.RESP SOFIA Administration Levalbuterol HCl 0.63 mg 10/26/22 20:00 10/30/22 08:58 Levalbuterol 0.6 3 Mg/3 Ml Neb INHALATION 0.63 mg Q6H.RESP SOFIA Administration Metoclopramide HCl 5 mg 10/27/22 08:01 10/29/22 20:02 Metoclopramide 5 Mg/Ml Sdv 2 Ml IVP 5 mg Q6H PRN Administration NAUSEA AND VOMITI NG Metoprolol Tartrat e 25 mg 10/29/22 21:00 10/30/22 08:04 Metoprolol Tartr ate 25 Mg Tablet PO 25 mg BID@0900,2100 SOFIA Administration Nystatin 1 applic 10/26/22 21:00 10/30/22 08:09 Nystatin Powder 15 Gm Btl TOPICAL 1 applic 0900,2100 SOFIA Administration Ondansetron HCl 4 mg 10/08/22 13:09 10/27/22 04:23 Ondansetron 2 Mg /Ml Sdv 2 Ml IVP 4 mg Q6H PRN Administration NAUSEA AND VOMITI NG Pantoprazole Sodiu m 40 mg 10/18/22 09:00 10/30/22 08:04 Pantoprazole 40 Mg Sdv IVP 40 mg DAILY SOFIA Administration Simethicone 40 mg 10/14/22 00:41 10/28/22 21:40 Simethicone 80 M g Chew PO 40 mg TID PRN Administration HICCUPS Sodium Polystyrene Sulfonate 15 gm 10/30/22 12:20 10/30/22 12:40 Sodium Polystyre ne Sulfonate 15 Gm /60 Ml Btl PO 15 gm BID SOFIA Administration Tramadol HCl 100 mg 10/26/22 13:57 10/28/22 13:41 Tramadol 50 Mg T ablet PO 100 mg Q6H PRN Administration MODERATE PAIN Trazodone HCl 300 mg 10/13/22 21:00 10/29/22 23:12 Trazodone 150 Mg Tablet PO Not Given BEDTIME SOFIA Vancomycin HCl 125 mg 10/26/22 17:00 10/30/22 12:40 Vancomycin 1,000 Mg Oral Jovana (Btl) PO 125 mg QID SOFIA Administration Vitals/I&O/Wt Last Vital Signs Temp 98.6 F 10/31/22 09:00 Pulse 96 10/31/22 12:00 Resp 26 H 10/31/22 12:00 BP 160/70 10/31/22 12:00 Pulse Ox 97 10/31/22 12:00 O2 Del Method 10/31/22 11:00 O2 Flow Rate 4 10/31/22 11:00 FiO2 30 10/28/22 06:00 10/30/22 10/31/22 10/31/22 22:59 06:59 14:59 Intake Total 860 / 1200.1 280 / 1480.1 350 / 350 Output Total 2885 / 2885 1065 / 3950 925 / 925 Balance -2025 / -1684.9 -785 / -2469.9 -575 / -575 Weight last 48 hrs Weight 160.163 kg Weight 162.069 kg Physical Exam Const: COMMON NORMALS: patient oriented x3 HENMT: COMMON NORMALS: normocephalic and atraumatic HEAD & SCALP: normocephalic and atraumatic Resp: COMMON NORMALS: clear to auscultation bilaterally EFFORT & INSPECTION: Yes symmetric chest movement AUSCULTATION: clear to auscultation bilaterally OTHER: Diminished air entry bilaterally Cardio: COMMON NORMALS: regular rate, regular rhythm, S1 normal heart sound present, S2 normal heart sound present, No gallops present (Cardio), No murmurs present (Cardio), No rub (Cardio) and Peripheral pulses 2+ throughout RATE: regular rate RHYTHM: regular rhythm HEART SOUNDS: S1 normal heart sound present and S2 normal heart sound present PERIPHERAL PULSES: Peripheral pulses 2+ throughout GI: COMMON NORMALS: Normal to inspection, nondistended, normoactive bowel sounds present, Soft to palpation, non-tender, No hepatosplenomegaly present and no masses AUSCULTATION: Yes normoactive bowel sounds PALPATION: Yes Soft to palpation and Yes No hepatosplenomegaly present RECTAL EXAM: Yes deferred OTHER: Wound VAC in place, ostomy site clean. Extremity: COMMON NORMALS: no clubbing, cyanosis or edema and no pedal edema Neuro: COMMON NORMALS: patient oriented x3 Urinary Catheter Management: Orellana: Cath Placed During This Visit: yes, but has since been removed by the nurse Reason for Continuing Indwelling Catheter: Accurate Measurement of Urinary Output in Critically Ill Patients Urinary Catheter Date of Insertion: 10/15/22 Urinary Catheter Time of Insertion: 13:50 Date Urinary Catheter Removed: 10/10/22 Time Urinary Catheter Discontinued: 17:45 Data 10/31/22 02:17 10/31/22 02:17 Micro: Microbiology 10/26/22 02:29 Blood Culture - Final Blood NO GROWTH AFTER 5 DAYS 10/26/22 02:35 Blood Culture - Final Blood NO GROWTH AFTER 5 DAYS A&P Assessment and plan (1) Ventilator dependent: Most likely secondary to postoperative status in setting of obstructive sleep apnea, COPD. Difficult to extubate given postoperative status with abdominal wound VAC. Baseline sleep apnea requiring CPAP up to pressure of 12. Noncompliant at home. Extubated to heated high flow on 10/26. Oxygen supplementation keeping saturation over 88%. Continue with DuoNebs every 6 hour, budesonide twice daily. Incentive spirometry, flutter valve. 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 Status post resection of colonic anastomosis and end ileostomy formation for wound dehiscence. Wound VAC, drains as per surgical team. Tube feeds as per surgical team. (3) Septic shock: Patient met sepsis criteria: Has elevated white cell count, endorgan dysfunction in the presence of TALON, fever, likely intra-abdominal infection as a source, with possible pneumonia. Now resolved. Keep mean artery pressure 65, saturation over 90%. Vancomycin stopped as MRSA negative. Last day of meropenem on 10/31. Course extended given possibility of abscess/collection intra-abdominally. Continue with IV fluids. (4) C. difficile colitis: Positive on 10/26. Start on oral vancomycin 125 mg 4 times daily. Monitor colostomy output. (5) Intra-abdominal collection: Seen on abdominal CT scan from 10/25. Query intra-abdominal abscess. Drain present. We will continue to monitor. Continue with extended course of IV antibiotics. (6) TALON (acute kidney injury): Baseline creatinine normal to 1. Trending down. Currently stable at 1.4. Robust urine output. Keep intake/output equal. Medical reconciliation done for nephrotoxic drugs. Nw currently 1.9. Monitor BMP daily. Maintain Orellana catheter. Strict input output charting. Overall 125 cc of fluid hydration per hour. (7) Obstructive sleep apnea: Not currently using cpap at home due to malfunction of machine. ABG with evidence of hypercapnic hypoxic respiratory failure. Known restrictive lung disease and asbestosis. At baseline uses CPAP at home, unable to utilize BiPAP given abdominal surgery. Currently saturating 93% on supplemental O2, does drop down to 70% on room air. Does not typically use oxygen at home. Continue to use DuoNeb and budesonide scheduled inhalation. No current indication for steroid use. Suspect that patient may have underlying baseline hypoxia and will likely require supplemental O2 at discharge. (8) Hypernatremia: Slight hyponatremia with sodium up to 146. Continue with D5 half NS at 100 cc/h. Continue with free water flushes at 250 every 4 hourly. Monitor BMP daily for now. (9) Hypertension: Chronic diagnosis, usually on bisoprolol-HCTZ and lisinopril. Goal blood pressure less than 140/90 mmHg with mean over 65. Restart home dose of metoprolol 50 mg twice daily. (10) Atrial fibrillation with rapid ventricular response: In a patient with known chronic atrial fibrillation, on bisoprolol in combination with HCTZ as only rate controlling medication at home. Currently rate controlled with amiodarone 400 mg twice daily. Takes Xarelto at home for anticoagulation. Off anticoagulation as per request from surgical team. Started on prophylaxis Heparin 5000 every 8 hourly. 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 Has myocardial perfusion study on 01/6/23. Ischemic work-up was negative. Curre ntly troponin series additionally negative. No acute ST-T wave changes to suggest acute coronary syndrome. (11) Anemia: (12) Hyperkalemia: Now resolved (13) Restrictive lung disease due to kyphoscoliosis: Aware (14) COVID-19: Had COVID in early 08/2022 and was hospitalized in [place] briefly needing oxygen. Plan Plan for today: Continue current dose of metoprolol as well as amiodarone. Hyperkalemia correction; has received dextrose and insulin, put on Kayexalate. Monitor serum potassium, monitor EKG CODE STATUS: Full code DVT prophylaxis: On heparin subcu Disposition: Placement to SNF for wound care and rehab, once patient is stable for discharge. Attestations Medical Necessity Statement*: per primary Coding Level of Care Code Acute Code for Chg Fwd Exam Detailed Diagnoses Ventilator dependent Z99.11 Status post left hemicolectomy Z90.49 Septic shock A41.9; R65.21 C. difficile colitis A04.72 Intra-abdominal collection R18.8 TALON (acute kidney injury) N17.9 Obstructive sleep apnea G47.33 Hypernatremia E87.0 Hypertension I10 Atrial fibrillation with rapid ventricular response I48.91 Anemia D64.9 Hyperkalemia E87.5 Restrictive lung disease due to kyphoscoliosis J98.4; M41.9 COVID-19 U07.1
[2022-10-31] MEDS: dextrose 5% 1,000 ML 50 ML IV (15:13)
[2022-10-31] MEDS: HYDROmorphone 1 mg/mL INJ 1 mL 0.5 MG IVP (15:37)
--- NOTE | 2022-10-31 15:43 | CTR_ITS ---
PROCEDURE INFORMATION: Exam: CT Head Without Contrast Exam date and time: 10/31/2022 4:47 PM Age: 67 years old Clinical indication: Altered mental status/memory loss; Additional info: Confusion TECHNIQUE: Imaging protocol: Computed tomography of the head without contrast. Radiation optimization: All CT scans at this facility use at least one of these dose optimization techniques: automated exposure control; mA and/or kV adjustment per patient size (includes targeted exams where dose is matched to clinical indication); or iterative reconstruction. Other protocol: This patient has received 6 known CTs and 0 known cardiac nuclear medicine studies in the 12 months prior to the current study. COMPARISON: CT head wo con* [id number] 10/28/2022 12:52 PM RADIATION DOSE METRICS: Total DLP (mGy-cm): 2972.98 FINDINGS: Brain: No hemorrhage. No edema. Moderate diffuse cerebral atrophy. No significant white matter disease. No mass effect. Cerebral ventricles: No ventriculomegaly. Paranasal sinuses: Visualized sinuses are unremarkable. No fluid levels. Mastoid air cells: Trace mastoid effusions. Bones/joints: Unremarkable. No acute fracture. Soft tissues: Unremarkable. CT/CT head wo con* [id number] IMPRESSION: No acute intracranial abnormality.
--- NOTE | 2022-10-31 17:03 | P.PN_ITS ---
Subjective Subjective: Positive colostomy output. He is eating about 800 fawad so far today, mostly Ensure. He is more confused each of the last 3 days. Positive colostomy output Vitals/I&O/Wt Last Vital Signs Temp 98.6 F 10/31/22 09:00 Pulse 88 10/31/22 14:00 Resp 25 H 10/31/22 15:37 BP 160/70 10/31/22 12:00 Pulse Ox 97 10/31/22 15:37 O2 Del Method 10/31/22 14:00 O2 Flow Rate 4 10/31/22 14:00 FiO2 30 10/28/22 06:00 10/31/22 10/31/22 10/31/22 06:59 14:59 22:59 Intake Total 280 / 1480.1 750 / 750 Output Total 1065 / 3950 925 / 925 Balance -785 / -2469.9 -175 / -175 Weight last 48 hrs Weight 353 lb 1.6 oz Weight 357 lb 4.8 oz Physical Exam Narrative: General: No acute distress, oriented mostly only to self. He does not know what year it is and he only knows he is in [place] Abdomen, soft, minimally tender, nondistended, wound VAC changed today with good granular tissue in the wound bed. Wound measures 30 cm x 9 cm x 3 cm deep Drains 1 and 2 serosanguineous drain 3 purulent with minimal output Urinary Catheter Management: Orellana: Cath Placed During This Visit: yes, but has since been removed by the nurse Reason for Continuing Indwelling Catheter: Accurate Measurement of Urinary Output in Critically Ill Patients Urinary Catheter Date of Insertion: 10/15/22 Urinary Catheter Time of Insertion: 13:50 Date Urinary Catheter Removed: 10/10/22 Time Urinary Catheter Discontinued: 17:45 Data 10/31/22 02:17 10/31/22 02:17 Micro: Microbiology 10/26/22 02:29 Blood Culture - Final Blood NO GROWTH AFTER 5 DAYS 10/26/22 02:35 Blood Culture - Final Blood NO GROWTH AFTER 5 DAYS A&P Assessment and plan (1) Colon cancer: (2) Status post left hemicolectomy: (3) C. 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 Attempting closure via wound VAC vancomycin orally for 10 days- last day Nov 05 Drain #3 abuts intraabdominal fluid collection and appears to be draining that collection now Hospitalist following-appreciate input Hopefully he can be discharged to a [place] [facility] facility on Saturday Attestations Medical Necessity Statement*: Patient requires multiple more nights in the hospital for intensive care following anastomotic leak after left hemicolectomy for colon cancer Coding Level of Care Code Acute Code for Chg Fwd Diagnoses Colon cancer C18.9 Status post left hemicolectomy Z90.49 C. difficile colitis A04.72 Intra-abdominal collection R18.8
--- NOTE | 2022-10-31 18:24 | PC.NURSE ---
Calorie intake 10/31/2022 day shift: Approximately 800 calories. 2 ensure protein shakes, small amount of lunch.
--- NOTE | 2022-10-31 18:26 | PC.NURSE ---
SHift Summary: Patient has been up to a chair for about 5 hours. Alissa lift used for transition. Mental status was variable throughout the day, but showed improvement. Initially very lethargic, but after getting up to a chair he became more alert, alert to self and place, but not situation or time. Later in the day he became more confused and lethargic, prompting a head CT which came back clear. Tramadol controlled pain well, but dialudid given before dressing change. Dr rdz changed abdominal incision today. [facility] called and they have started a file on this patient and will continue to track his progress to consider placement. Patient drank 2 ensures during the day and had a small amount of finely minced food at lunch. MISTI Drains to the left abdomen had minimal output, not emptied do to an unmeasurble amount. MISTI to the right abdomen had 90 mL of serous drainage. Urine output: 2015 mL
[2022-10-31] MEDS: trazodone 150 mg Tablet 300 MG PO (20:56)
[2022-11-01] VITALS (47 sets, daily range): BP systolic 74–166; BP diastolic 49–88; PULSE 72–105; RESP 15–34; TEMP 36.7–37.1; O2SAT 93–100
[2022-11-01] MEDS: levalbuterol 0.63 mg/3 mL Neb INHALATION ×4 (01:55→20:12)
[2022-11-01 02:33] LABS: Basophils # 0.1 10^3/uL (0.0-0.1); Basophils % 0.7 %; Eosinophils # 0.3 10^3/uL (0.0-0.8); Eosinophils % 3.8 %; Hematocrit 30.4 % (42.0-52.0); Hemoglobin 8.9 g/dL (11.7-16.6); Lymphocytes # 0.9 10^3/uL (0.8-4.8); Mean Corpuscular HGB Conc 29.3 g/dL (30.0-36.0); Mean Corpuscular Hemoglobin 31.8 pg (28.0-34.0); Mean Corpuscular Volume 108.6 fl (80-94); Mean Platelet Volume 9.6 fL (7.4-10.4); Monocytes # 0.9 10^3/uL (0.2-0.9); Monocytes % 9.4 %; Neutrophils # 6.72 10^3/uL (1.8-7.7); Neutrophils % 74.5 %; Nucleated Red Blood Cells % 0 %; Platelet Count 244 10^3/cmm (130-400); Red Cell Distribution Width 15.9 % (12.1-15.1)
[2022-11-01 03:00] LABS: Anion Gap 12.3 (5-19); Blood Urea Nitrogen 25 mg/dL (8-23); Calcium 8.7 mg/dL (8.5-10.5); Carbon Dioxide 33 mmol/L (22-29); Chloride 110 mmol/L (98-107); Glomerular Filtration Rate 60.4 mL/min (90-130); Glucose 124 mg/dL (65-115); Osmolality Calculated 316 mOsm/kg (285-295); Potassium 5.3 mmol/L (3.5-5.1); Sodium 150 mmol/L (136-145)
[2022-11-01] MEDS: heparin 5,000 unit/mL INJ 1 mL 5000 UNIT SUBCUT ×2 (03:30→12:01)
--- NOTE | 2022-11-01 08:27 | PC.NURSE ---
Do not give this patient kayexolate per Dr. Soares.
[2022-11-01] MEDS: budesonide 0.5 mg/2 mL Neb INHALATION ×2 (08:30→20:12)
[2022-11-01] MEDS: insulin regular-human 10 UNIT in SYRINGE 1 EACH IVP (08:56)
[2022-11-01] MEDS: FUROsemide 10 mg/mL SDV 4mL 40 MG IVP (08:56)
--- NOTE | 2022-11-01 10:00 | PC.NURSE ---
Pt is confused this AM and unable to swallow crushed pills in apple sauce. Ostomy was drained and large blood clot and bright red blood was noted. Dr. Soares was called and at bedside shortly after.
[2022-11-01 10:03] LABS: Glucose Point of Care 118 mg/dL (70-110)
--- NOTE | 2022-11-01 11:22 | CTR_ITS ---
PROCEDURE INFORMATION: Exam: CTA Chest With Contrast Exam date and time: 11/01/2022 1:55 PM Age: 67 years old Clinical indication: Abdominal tenderness; Shortness of breath; Prior surgery; Patient HX: History--post operative, R/O collection or abscess. Left hemicolectomy for colon cancer at the splenic flexure. On postop day #7 he was found to have black drain output and increased abdominal pain. CT abdomen pelvis revealed an anastomotic leak. Exploratory laparotomy with partial colon resection and end colostomy formation was indicated. Blood accumulation in ostomy bag, ; additional info: Intra-abdominal abscess, tachypnea, high o2 requirements TECHNIQUE: Imaging protocol: Computed tomographic angiography of the chest with contrast. 3D rendering (Not supervised by radiologist): MIP and/or 3D reconstructed images were created by the technologist. Radiation optimization: All CT scans at this facility use at least one of these dose optimization techniques: automated exposure control; mA and/or kV adjustment per patient size (includes targeted exams where dose is matched to clinical indication); or iterative reconstruction. Contrast material: OMNI 350; Contrast volume: 100 ml; Contrast route: INTRAVENOUS (IV); Other protocol: This patient has received 7 known CTs and 0 known cardiac nuclear medicine studies in the 12 months prior to the current study. COMPARISON: CT chest abd pel w con* 07/18/2022 6:32 PM RADIATION DOSE METRICS: Total DLP (mGy-cm): 2088.98 FINDINGS: Pulmonary arteries: Normal. No pulmonary emboli. Aorta: Calcification of the thoracic aorta and/or great vessels consistent with atherosclerotic vessel disease. Thyroid: Large 5.2 cm left thyroid nodule with recommendation for nonemergent thyroid ultrasound to rule out neoplasm. Lungs: Compressive atelectasis and pneumonia in the right upper lobe, right middle lobe and right lower lobe. Pleural spaces: Mild loculated left pleural fluid collection with some fluid in the left major fissure. Moderate right pleural fluid collection. Heart: Unremarkable. No cardiomegaly. No pericardial effusion. Lymph nodes: Calcified right hilar nodes and/or mediastinal nodes and/or lung granulomas consistent with old granulomatous disease. Bones/joints: Unremarkable. No acute fracture. Soft tissues: Unremarkable. Other findings: Stable metallic postoperative changes over the thoracolumbar spine with metallic artifact. COMMENTS: Consistent with the [employer]'s Incidental Findings Committee white paper (J Am Dg Radiol 2015): In patients aged 35 years and older with an incidental thyroid nodule equal to or greater than 1.[address], MRI or extrathyroidal US, further evaluation with dedicated thyroid US is recommended for patients with normal life expectancy and without comorbidities. For smaller nodules without suspicious features, no further evaluation or follow up is recommended. PROCEDURE INFORMATION: Exam: CT Abdomen And Pelvis With Contrast Exam date and time: 11/01/2022 1:55 PM Age: 67 years old Clinical indication: Abdominal tenderness; Shortness of breath; Prior surgery; Patient HX: History--post operative, R/O collection or abscess. Left hemicolectomy for colon cancer at the splenic flexure. On postop day #7 he was found to have black drain output and increased abdominal pain. CT abdomen pelvis revealed an anastomotic leak. Exploratory laparotomy with partial colon resection and end colostomy formation was indicated. Blood accumulation in ostomy bag, ; additional info: Intra-abdominal abscess, tachypnea, high o2 requirements TECHNIQUE: Imaging protocol: Computed tomography of the abdomen and pelvis with contrast. Radiation optimization: All CT scans at this facility use at least one of these dose optimization techniques: automated exposure control; mA and/or kV adjustment per patient size (includes targeted exams where dose is matched to clinical indication); or iterative reconstruction. Contrast material: OMNI 350; Contrast volume: 100 ml; Contrast route: INTRAVENOUS (IV); Other protocol: This patient has received 7 known CTs and 0 known cardiac nuclear medicine studies in the 12 months prior to the current study. COMPARISON: CT abdomen pelvis w con* [id number] 10/25/2022 1:44 PM RADIATION DOSE METRICS: Total DLP (mGy-cm): 2088.98 FINDINGS: Tubes, catheters and devices: Stable 2 left-sided percutaneous peritoneal drainage catheters. Liver: Normal. No mass. Gallbladder and bile ducts: Normal. No calcified stones. No ductal dilation. Pancreas: Normal. No ductal dilation. Spleen: Normal. No splenomegaly. Adrenal glands: Normal. No mass. Kidneys and ureters: Multiple left renal simple cysts with the largest measuring > 1.0 cm. One or more nonobstructing right renal calyceal stones. Stomach and bowel: Rectal stump filled with barium. Mildly decreased size of 7.1 x 2.7 x 3.4 cm loculated fluid collection or loop of bowel in the mid lower abdomen/upper pelvis compared with previous measurement of 8.4 x 3.1 x 3.6 cm. Axial series 6, images 51-63. Sagittal series 16, images 44-53. Coronal series 15, images 62-56. Apparent increased size of 6.7 x 6.1 x 2.4 cm fluid measuring 23 Hounsfield units medial and inferior to the right lower quadrant colostomy suggesting possible complex fluid collection with or without infection. Density would be suggestive of unclotted blood or versus other complex fluid collection. Axial series 6, images 54-69. Appendix: No evidence of appendicitis. Intraperitoneal space: Unremarkable. No free air. No significant fluid collection. Vasculature: Calcification of the abdominal aorta and/or iliac arteries consistent with atherosclerotic vessel disease. Lymph nodes: Unremarkable. No enlarged lymph nodes. Urinary bladder: Orellana balloon catheter in the urinary bladder. Reproductive: Unremarkable as visualized. Bones/joints: Dextroscoliosis. Severe lumbar spondylosis. Soft tissues: Interval resolution of previously noted air bubbles near the right lower quadrant colostomy with continued inflammation in surrounding fat and soft tissues. Left inguinal hernia containing fat. Other findings: Stable postoperative changes over the lower lumbar spine with metallic fixation and metallic artifact. CT/CT angio chest w abd pel w con IMPRESSION: 1. Large 5.2 cm left thyroid nodule with recommendation for nonemergent thyroid ultrasound to rule out neoplasm. 2. Moderate right pleural fluid collection. 3. Compressive atelectasis and pneumonia in the right upper lobe, right middle lobe and right lower lobe. IMPRESSION: 1. Orellana balloon catheter in the urinary bladder. 2. Rectal stump filled with barium. 3. Interval resolution of previously noted air bubbles near the right lower quadrant colostomy with continued inflammation in surrounding fat and soft tissues. 4. Mildly decreased size of 7.1 x 2.7 x 3.4 cm loculated fluid collection or loop of bowel in the mid lower abdomen/upper pelvis compared with previous measurement of 8.4 x 3.1 x 3.6 cm. Axial series 6, images 51-63. Sagittal series 16, images 44-53. Coronal series 15, images 62-56. 5. Apparent increased size of 6.7 x 6.1 x 2.4 cm lesion measuring 23 Hounsfield units in the region of the right rectus muscle, medial and inferior to the right lower quadrant colostomy suggesting possible complex fluid collection with or without infection. Density would be suggestive of unclotted blood versus other complex fluid collection. Axial series 6, images 54-69. 6. Stable 2 left-sided percutaneous peritoneal drainage catheters. COMMENTS: Consistent with the [employer]'s Incidental Findings Committee white paper (J Am Dg Radiol 2018): Any incidental renal lesion less than 1 cm or classified as too small to characterize, or any incidental cystic renal lesion characterized as simple-appearing, is likely benign. No follow-up imaging is recommended for these lesions per consensus recommendations based on imaging criteria.
[2022-11-01] MEDS: dextrose 5% 1,000 ML 50 ML IV (12:04)
[2022-11-01 12:11] LABS: Hematocrit 28.9 % (42.0-52.0); Hemoglobin 8.4 g/dL (11.7-16.6)
[2022-11-01] MEDS: iohexol 350 mg/mL 500 mL Btl (per mL) IV (14:21)
[2022-11-01 14:42] LABS: Basophils % 0.6 %; Eosinophils # 0.3 10^3/uL (0.0-0.8); Eosinophils % 4.7 %; Hematocrit 27.7 % (42.0-52.0); Lymphocytes # 0.9 10^3/uL (0.8-4.8); Lymphocytes % 12.6 %; Mean Corpuscular HGB Conc 28.9 g/dL (30.0-36.0); Mean Corpuscular Hemoglobin 31.3 pg (28.0-34.0); Mean Corpuscular Volume 108.2 fl (80-94); Mean Platelet Volume 9.8 fL (7.4-10.4); Monocytes # 0.6 10^3/uL (0.2-0.9); Monocytes % 8.5 %; Neutrophils # 4.88 10^3/uL (1.8-7.7); Neutrophils % 71.7 %; Nucleated Red Blood Cells % 0 %; Platelet Count 246 10^3/cmm (130-400); Red Blood Count 2.56 10^6/uL (4.1-5.3); Red Cell Distribution Width 15.7 % (12.1-15.1); White Blood Count 6.8 10^3/uL (4.0-10.0)
--- NOTE | 2022-11-01 15:05 | PC.NURSE ---
Pt was taken to CT at around 1400. His ostomy was full of blood and a large clot and was emptied in ct. When patient got back to room ostomy was full of bright red blood. Dr. Soares was called and He ordered 2 emergent units of blood, 2 grams of TXA and blood work.1g of TXA and the 2 units of blood were running when Dr. Soares was at bedside. Pt taken to surgery 1455. Clots were weighed with a total of 2.78 lbs/1.3kg.
[2022-11-01 15:52] LABS: ABG PCO2 53.3 mmHg (35-45); ABG PH Result 7.44 (7.35-7.45); Arterial Blood Gas Hematocrit 29.1 % (42-52); Base Excess ABG 10.7 mmol/L (-2.0-2.0); Blood Gas Operator Identificat 33; Blood Gas Sample Type Arterial; HCO3 ABG 36.2 mmol/L (22-26); Ionized Calcium Level - ABG 1.3 mmol/L (1.1-1.4); Methemoglobin 0.7 % (0.4-1.5); Oxygen Saturation ABG 99.7; Potassium Level - ABG 5.1 mmol/L (3.5-5.0); Total Hemoglobin 9.5 g/dL (14-18)
[2022-11-01 16:04] LABS: Hematocrit 30.3 % (42.0-52.0); Hemoglobin 9.1 g/dL (11.7-16.6)
--- NOTE | 2022-11-01 16:11 | ANES.PREANE2 ---
Pre-Anesthetic Assessment Height/Weight: Height 1.93 m Weight 145.467 kg Temp Pulse Resp BP Pulse Ox O2 Del Method O2 Flow Rate 98.6 F 97 34 H 166/74 96 4 11/01/22 11:00 11/01/22 14:26 11/01/22 14:26 11/01/22 14:00 11/01/22 14:26 11/01/22 14:26 11/01/22 14:26 FiO2 30 10/28/22 06:00 Preop Diagnosis: Colon Cancer Operation Date: 10/08/22 07:00 Proposed Procedures p Laparoscopic Left Hemicolectomy 89902/c18.9/k76.9(Left) - Isaias Soares DO Operation Date: 10/15/22 13:40 Proposed Procedures p Exploratory Laparotomy(Not Applicable) - Isaias Soares DO Operation Date: 11/01/22 15:00 Proposed Procedures p Exploratory Laparotomy(Not Applicable) - Isaias Soares DO Familial anesthetic complications: none Was Beta Larissa taken within 24 hours: N/A Was Clonidine taken within 24 hours: N/A Last intake: Intake Last Liquid Date 10/07/22 Last Liquid Time 22:00 Last Solid Date 10/06/22 Social No alcohol and No tobacco Exam alert and oriented x 3 tachy Airway Submandibular: within normal limits Cervical ROM: within normal limits Mallampati: Class I Dentition: false Pulmonary Asthma and Sleep Apnea CV/HEM Atrial Fibrillation and Anemia polycythemia TALON GI C.diff, colon mass s/p colon resection Metabolic Diabetes Mellitus and Morbid Obesity hyperkalemia Musc/skel Lower Back Pain and Osteoarthritis/DJD Anesthetic Plan ASA status: 4E Anesthesia: General (RSI) Other: a.line, CVL (already in place right fem) Medications/Allergies Home Medications Medication Instructions Recorded Confirmed Last Taken Type allopurinol 300 mg tablet 300 mg PO DAILY@219910/15/19 10/09/22 09/18/22 History folic acid 1 mg tablet 1 mg PO DAILY@219910/15/19 10/09/22 09/17/22 History multivitamin 6 tab PO DAILY@219910/15/19 10/08/22 10/07/22 History ascorbic acid (vitamin C) 1,000 mg 1,000 mg PO DAILY@219910/27/19 10/09/22 09/17/22 History tablet (Vitamin C) sennosides 8.6 mg tablet (senna) 8.6 mg PO DAILY PRN Constipation 10/27/19 10/08/22 10/07/22 History vitamin E 670 mg (1,000 unit) 1,000 unit PO DAILY@2200 10/27/19 10/09/22 09/17/22 History capsule biotin 1 mg tablet 1 mg PO DAILY 11/15/20 10/09/22 09/17/22 History glucosamine 750 mg-chondroit 100 2 tab PO DAILY 11/15/20 10/08/22 10/07/22 History mg-msm-D3 25 [id number] bor tablet lycopene 10 mg capsule 10 mg PO DAILY 11/15/20 10/09/22 09/17/22 History resveratrol 250 mg capsule 250 mg PO QPM 11/15/20 10/09/22 09/17/22 History saw palmetto 500 mg capsule 500 mg PO DAILY 11/15/20 10/09/22 09/17/22 History Custom Molded Orthotics #1 ea 10/30/21 10/09/22 Unknown Rx Night splint to Right #1 ea 10/30/21 10/09/22 Unknown Rx loratadine 10 mg tablet (Claritin) 10 mg PO DAILY PRN Allergy Symptoms 11/21/21 10/09/22 07/17/22 History lovastatin 40 mg tablet 40 mg PO BEDTIME 11/21/21 10/09/22 09/18/22 History budesonide-formoterol HFA 80 2 puff inhalation BID@ #10.2 01/19/22 10/09/22 09/16/22 Rx mcg-4.5 mcg/actuation aerosol grams inhaler (Symbicort) testosterone cypionate 200 mg/mL 120 mg (0.6 mL) IM Q7D #10 mL 06/21/22 10/08/22 10/02/22 Rx intramuscular oil bisoprolol 10 2 tab PO BEDTIME 07/18/22 10/09/22 09/18/22 History mg-hydrochlorothiazide 6.25 mg tablet ketoconazole 2 % shampoo 1 applic topical DAILY PRN Rash 07/18/22 10/08/22 10/05/22 History tadalafil 20 mg tablet (Cialis) 20 mg PO DAILY PRN sexual activity 09/18/22 10/09/22 Unknown History rivaroxaban 20 mg tablet (Xarelto) 20 mg PO QPM 10/05/22 10/09/22 10/02/22 History acetaminophen 500 mg tablet 1,000 mg PO BID PRN Pain 10/09/22 10/09/22 Unknown History cholecalciferol (vitamin D3) 10 10 mcg PO DAILY 10/09/22 10/09/22 Unknown History mcg (400 unit) capsule (Vitamin D3) chromium picolinate 1,000 mcg 1,000 mcg PO DAILY 10/09/22 10/09/22 Unknown History tablet lisinopril 20 mg tablet 20 mg PO BEDTIME 10/09/22 10/09/22 Unknown History melatonin 5 mg tablet 5 mg PO BEDTIME 10/09/22 10/09/22 Unknown History trazodone 150 mg tablet 300 mg PO BEDTIME 10/09/22 10/09/22 Unknown History triamcinolone acetonide 0.1 % 1 applic topical EVERY OTHER DAY 10/09/22 10/09/22 Unknown History topical cream Allergies Allergy/AdvReac Type Severity Reaction Status Date / Time oats Allergy DIARRHEA Verified 10/08/22 06:11 apixaban [From Eliquis] AdvReac Severe Headaches Verified 10/08/22 06:11 caffeine AdvReac Unknown PALPITATION Verified 10/08/22 06:11 S apple AdvReac DIARRHEA, Verified 10/08/22 06:11 VOMITING AND CRAMPING egg AdvReac DIARRHEA, Verified 10/08/22 06:11 VOMITING AND STOMACH CRAMPING meperidine [From Demerol] AdvReac EXCESSIVE Verified 10/08/22 06:11 SEDATION morphine AdvReac HALLUCINATI Verified 10/08/22 06:11 ONS berries Allergy Unknown Uncoded 10/08/22 06:11 raw tomatoes Allergy ADR-Gastrointestinal Uncoded 10/08/22 06:11 Upset FRYE AdvReac DIARRHEA Uncoded 10/08/22 06:11 Current Medications Generic Name Dose Route Start Last Admin Trade Name Freq PRN Reason Stop Dose Admin Acetaminophen 650 mg 10/13/22 19:53 10/13/22 20:21 Acetaminophen 325 Mg Tablet PO 650 mg Q6H PRN Administration FEVER Albuterol Sulfate 2.5 mg 10/22/22 10:33 10/26/22 07:35 Albuterol 2.5 Mg/3 Ml Neb INHALATION 2.5 mg Q6H.RESP PRN Administration SHORTNESS OF BREATH Amiodarone HCl 200 mg 10/30/22 09:00 11/01/22 09:57 Amiodarone 200 Mg Tablet PO Not Given DAILY [facility] Amlodipine Besylate 10 mg 11/01/22 09:15 11/01/22 09:53 Amlodipine 10 Mg Tablet PO Not Given DAILY SOFIA Atorvastatin Calcium 20 mg 10/13/22 21:00 10/14/22 20:20 Atorvastatin 40 Mg Tablet PO 20 mg BEDTIME SOFIA Administration Budesonide 0.5 mg 10/08/22 20:00 11/01/22 08:30 Budesonide 0.5 Mg/2 Ml Neb INHALATION 0.5 mg BID.RESPIRATORY SOFIA Administration Chlorhexidine Gluconate 1 applic 10/19/22 02:00 11/01/22 09:53 Chlorhexidine Gluconate 4% Btl 118 Ml TOPICAL Not Given DAILY [facility] Fluconazole 200 mg 10/26/22 09:00 11/01/22 09:57 Fluconazole 100 Mg Tablet PO 11/02/22 08:59 Not Given DAILY [facility] Folic Acid 1 mg 10/13/22 22:00 10/14/22 22:01 Folic Acid 1 Mg Tablet PO 1 mg DAILY@2200 SOFIA Administration Guaifenesin 600 mg 10/28/22 18:00 11/01/22 09:57 Guaifenesin 600 Mg Tablet PO Not Given BID SOFIA Heparin Sodium (Porcine) 5,000 unit 10/26/22 10:30 11/01/22 12:01 Heparin 5,000 Unit/Ml Inj 1 Ml SUBCUT 5,000 unit Q8H SOFIA Administration Dextrose 1,000 mls @ 100 mls/hr 10/31/22 09:30 11/01/22 12:04 D5w IV 50 mls/hr .Q10H SOFIA Administration Tranexamic Acid 1,000 mg/ 110 mls @ 330 mls/hr 11/01/22 14:23 11/01/22 14:30 Sodium Chloride IV 330 mls/hr Q30M PRN Administration BLEEDING Levalbuterol HCl 0.63 mg 10/26/22 20:00 11/01/22 14:26 Levalbuterol 0.63 Mg/3 Ml Neb INHALATION 0.63 mg Q6H.RESP SOFIA Administration Metoclopramide HCl 5 mg 10/27/22 08:01 10/29/22 20:02 Metoclopramide 5 Mg/Ml Sdv 2 Ml IVP 5 mg Q6H PRN Administration NAUSEA AND VOMITING Metoprolol Tartrate 25 mg 10/29/22 21:00 11/01/22 09:57 Metoprolol Tartrate 25 Mg Tablet PO Not Given BID@09,2100 [facility] Nystatin 1 applic 10/26/22 21:00 11/01/22 09:53 Nystatin Powder 15 Gm Btl TOPICAL Not Given 899,2099 [facility] Ondansetron HCl 4 mg 10/08/22 13:09 10/27/22 04:23 Ondansetron 2 Mg/Ml Sdv 2 Ml IVP 4 mg Q6H PRN Administration NAUSEA AND VOMITING Pantoprazole Sodium 40 mg 11/01/22 09:00 11/01/22 09:[address] 40 Mg Tablet PO Not Given DAILY [facility] Simethicone 40 mg 10/14/22 00:41 10/30/22 21:23 Simethicone 80 Mg Chew PO 40 mg TID PRN Administration HICCUPS Trazodone HCl 300 mg 10/13/22 21:00 10/31/22 20:56 Trazodone 150 Mg Tablet PO 300 mg BEDTIME SOFIA Administration Vancomycin HCl 125 mg 10/26/22 17:00 11/01/22 14:31 Vancomycin 1,000 Mg Oral Jovana (Btl) PO Not Given QID SOFIA PFSH Anesthesia Medical History (Updated 10/26/22 @ 15:56 by Blas Hurt MD) Afib Allergies Asperger syndrome mild Asthma Cardiomegaly Chronic low back pain Chronic pain syndrome Chronic sinusitis of both maxillary sinuses COVID-19 determined by clinical diagnostic criteria Degenerative joint disease (DJD) of lumbar spine Dyslipidemia Erectile dysfunction Gout Hypertension 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 Obstructive sleep apnea Opioid contract exists previous Osteoarthritis of hands, bilateral Osteoarthritis of knees, bilateral Polycythemia Restrictive lung disease due to kyphoscoliosis Right renal stone Substernal goiter Suspected exposure to asbestos Testosterone deficiency On TRT for 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 Surgical History (Updated 10/09/22 @ 10:18 by Isaias Soares DO) H/O ankle fusion H/O arthroscopic knee surgery H/O wrist surgery History of appendectomy History of back surgery History of shoulder surgery S/P ureteral stent placement Family History Grandfather CAD (coronary artery disease) Family/Other Cancer Grandmother Dementia Stroke Mother Lung disease Other Hypertension Denies family history of Rheumatoid arthritis Diabetes Lupus Clotting disorder Hyperlipidemia Chronic kidney disease (CKD) Suicide Anesthesia complication Bleeding disorder Social History (Updated 10/08/22 @ 18:09 by Lata Salmeron MD) Smoking and tobacco status: former smoker Quit status (tobacco): has quit using tobacco Year quit tobacco: 1975 [id number] Second hand smoke exposure: Yes Alcohol intake: never Lives independently: Yes Current occupational status: retired Pets and animals: Yes Current gender identity: Male Data Anesthesia 11/01/22 15:33 11/01/22 02:17 Short CBC 10/31/22 11/01/22 11/01/22 Range/Units 02:17 02:17 12:02 WBC 9.4 9.0 (4.0-10.0) 10^3/uL Hgb 8.7 L 8.9 L 8.4 L (11.7-16.6) g/dL Hct 30.0 L 30.4 L 28.9 L (42.0-52.0) % MCV 109.5 H 108.6 H (80-94) fl Plt Count 261 244 (130-400) 10^3/cmm Neut % (Auto) 72.9 74.5 % Neut # (Auto) 6.82 6.72 (1.8-7.7) 10^3/uL 11/01/22 11/01/22 Range/Units 14:30 15:33 WBC 6.8 (4.0-10.0) 10^3/uL Hgb 8.0 L 9.1 L (11.7-16.6) g/dL Hct 27.7 L 30.3 L (42.0-52.0) % MCV 108.2 H (80-94) fl Plt Count 246 (130-400) 10^3/cmm Neut % (Auto) 71.7 % Neut # (Auto) 4.88 (1.8-7.7) 10^3/uL BMP 10/31/22 11/01/22 02:17 02:17 Sodium 146 H 150 H Potassium 5.4 H 5.3 H Chloride 110 H 110 H Carbon Dioxide 31 H 33 H BUN 30 H 25 H Creatinine 1.5 H 1.2 Glucose 107 124 H Calcium 8.9 8.7 Blood Bank 11/01/22 14:30 Blood Type O Negative Rho(D) Type Negative Antibody Screen Negative Coags 11/01/22 15:33 Fibrin Degrad Products Pos, 10-40 H ABG 11/01/22 15:45 Specimen Type Arterial ABG pH 7.44 ABG pCO2 53.3 H ABG pO2 108.0 H ABG HCO3 36.2 H ABG O2 Saturation 99.7 ABG Base Excess 10.7 H Cardiac Studies: Echocardiogram Ultrasound 10/17/20 Sestamibi Stress Test (Cardiology) 10/05/22
--- NOTE | 2022-11-01 16:16 | ANE.PACU2 ---
Inpatient post-anesthesia follow up: Airway intact: Yes (ETT) Vital signs: Temperature 98.6 F Pulse Rate [Curren t] 106 Pulse Rate 97 Respiratory Rate [ Current] 20 Respiratory Rate 34 Blood Pressure 166/74 Pulse Oximetry [Cu rrent] 90 Pulse Oximetry 96 Oxygen Delivery Me thod High Flow Nasal Ca nnula Oxygen Flow Rate [ Current] 35 Oxygen Flow Rate 4 Fraction of Inspir ed Oxygen [ 30 Current] Fraction of Inspir ed Oxygen 30 Hydration adequate: Yes Nausea and vomiting: No Pain level: 4 Mental status: Altered (sedated) Additional Comments: Intubated/sedated to ICU, stable
--- NOTE | 2022-11-01 16:22 | US_ITS ---
WS: [id number] Ultrasound chest, limited. HISTORY: Evaluate pleural effusion. COMPARISON: 10/25/2022. Very small RIGHT pleural effusion is identified. Maximum diameter 3 cm. As compared to the prior stud y the effusion appears significantly smaller by ultrasound. Quality is significantly limited by body habitus. US/US chest [id number] IMPRESSION: Small RIGHT pleural effusion. Appears decreased as compared to the prior ultras ound.
[2022-11-01 16:25] LABS: Fibrinogen 337 mg/dL (174-498); Partial Thromboplastin Time 33.3 SECONDS (23.9-36.7)
--- NOTE | 2022-11-01 16:25 | PM.OP ---
Operative Report Date of procedure: November 01, 2022 Pre-op diagnosis: Preop Diagnosis acute hemorrhage Post-op diagnosis: same Procedure done: Colostomy revision with control of bleeding Implants: Surgicel x2 Specimens removed/disposition: None Surgeon: Dr. Isaias Soares DO Anesthesia: General Estimated blood loss (mL): 300 Complications: None apparent Brief History: This is a very pleasant 67-year-old gentleman who received a left hemicolectomy for colon cancer and subsequently developed an anastomotic leak. He then had an exploratory laparotomy and end colostomy formation. While in the ICU today he passed a large blood clot from his colostomy. He then went for CT. On his way back from CT he began having a very large amount of acute brisk bleeding and required emergent control of hemorrhage. Consent was taken emergently. Procedure: Patient was taken emergently from the ICU in critical condition with acute brisk hemorrhage at his right lower quadrant colostomy site. He was quickly intubated and sedated the abdomen was painted with Betadine after the wound VAC was removed. The sutures holding the colostomy were then cut, as it appeared the bleeding was coming from around the colostomy. There was some bleeding coming from the colon itself which was controlled with a 3-0 Vicryl suture in a [id number] fashion. There was very brisk bleeding coming from the abdominal wall. A 10 blade scalpel was used to make a 1 inch incision medial from the colostomy to expose the area. Bovie cautery was then used to successfully control the bleeding. There was multiple areas of oozing and brisk bleeding. Surgicel was placed into the wound x2 along with a laparotomy pad. Pressure was held for 5 minutes and then the laparotomy pad and Surgicel was removed. There was no active bleeding. The Surgicel was placed back into the wound. The skin was then closed with 3-0 nylon in interrupted fashion. The colostomy was then matured again in the typical fashion with 3-0 Vicryl sutures. Patient tolerated the procedure well and was wheeled back to the ICU. Patient got a total of 4 units PRBCs along with 3 units of FFP and platelets were ordered. He was also given tranexamic acid.
[2022-11-01 16:34] LABS: D Dimer 6.31 ug/mIFEU (0-0.59)
[2022-11-01] MEDS: propofol 1,000 MG/100 ML INJ 4.36 MG IV (16:39)
--- NOTE | 2022-11-01 16:54 | PC.NURSE ---
Pt admitted back to ICU at 1618 on ventilator with ART line in place. Sedation ordered once patient in room. Small amounts of brown stool noted in ostomy bag. No bleeding noted. OG placed and secured.
--- NOTE | 2022-11-01 17:16 | XRR_ITS ---
PROCEDURE INFORMATION: Exam: XR Chest Exam date and time: 11/01/2022 5:46 PM Age: 67 years old Clinical indication: Device placement; Other: Et and og placement; Patient HX: Og and et tube placement TECHNIQUE: Imaging protocol: Radiologic exam of the chest. Views: 1 view. COMPARISON: CR (CHEST, ) 10/20/2022 1:51 PM FINDINGS: Tubes, catheters and devices: Endotracheal tube somewhat obscured by metallic hardware over the spine. Enteric tube tip is beyond the proximal portion of the stomach and is not seen because it is below the inferior margin of the film. Lungs: Increased right perihilar opacities most consistent with bronchopneumonia. Pleural spaces: Unremarkable. No pleural effusion. No pneumothorax. Heart/Mediastinum: Stable cardiomegaly. Bones/joints: Unremarkable. Other findings: Stable metallic postoperative changes over the thoracolumbar spine with metallic artifact. XR/XR chest 1V portable [id number] IMPRESSION: 1. Increased right perihilar opacities most consistent with bronchopneumonia. 2. Endotracheal tube somewhat obscured by metallic hardware over the spine. 3. Enteric tube tip is beyond the proximal portion of the stomach and is not seen because it is below the inferior margin of the film.
--- NOTE | 2022-11-01 17:26 | PM.PN ---
Subjective Subjective: Patient passed large blood clot from his colostomy today. Medications: Reviewed: Yes Medication Review Details: Generic Name Dose Route Start Last Admin Trade Name Freq PRN Reason Stop Dose Admin Acetaminophen 650 mg 10/13/22 19:53 10/13/22 20:21 Acetaminophen 32 5 Mg Tablet PO 650 mg Q6H PRN Administration FEVER Albuterol Sulfate 2.5 mg 10/22/22 10:33 10/26/22 07:35 Albuterol 2.5 Mg /3 Ml Neb INHALATION 2.5 mg Q6H.RESP PRN Administration SHORTNESS OF EDWIGE TH Amiodarone HCl 200 mg 10/30/22 09:00 11/01/22 09:57 Amiodarone 200 M g Tablet PO Not Given DAILY REPLACED BY [facility] Amlodipine Besylat e 10 mg 11/01/22 09:15 11/01/22 09:53 Amlodipine 10 Mg Tablet PO Not Given DAILY REPLACED BY [facility] Atorvastatin Calci um 20 mg 10/13/22 21:00 10/14/22 20:20 Atorvastatin 40 Mg Tablet PO 20 mg BEDTIME SOFIA Administration Budesonide 0.5 mg 10/08/22 20:00 11/01/22 08:30 Budesonide 0.5 M g/2 Ml Neb INHALATION 0.5 mg BID.RESPIRATORY S CH Administration Chlorhexidine Gluc stef 1 applic 10/19/22 02:00 11/01/22 09:53 Chlorhexidine Gl uconate 4% Btl 118 Ml TOPICAL Not Given DAILY REPLACED BY [facility] Fluconazole 200 mg 10/26/22 09:00 11/01/22 09:57 Fluconazole 100 Mg Tablet PO 11/02/22 08:59 Not Given DAILY REPLACED BY [facility] Folic Acid 1 mg 10/13/22 22:00 10/14/22 22:01 Folic Acid 1 Mg Tablet PO 1 mg DAILY@2200 SOFIA Administration Heparin Sodium (Po rcine) 5,000 unit 10/26/22 10:30 11/01/22 12:01 Heparin 5,000 Un it/Ml Inj 1 Ml SUBCUT 5,000 unit Q8H SOFIA Administration Dextrose 1,000 mls @ 100 m ls/hr 10/31/22 09:30 11/01/22 12:04 D5w IV 50 mls/hr .Q10H SOFIA Administration Tranexamic Acid 1, 000 mg/ 110 mls @ 330 mls /hr 11/01/22 14:23 11/01/22 14:30 Sodium Chloride IV 330 mls/hr Q30M PRN Administration BLEEDING Propofol 1,000 mg in 100 m ls @ 0 mls/hr 11/01/22 16:30 11/01/22 16:39 Diprivan IV 5 mcg/kg/min .Q0M SOFIA 4.36 mls/hr Administration Protocol Per Protocol Levalbuterol HCl 0.63 mg 10/26/22 20:00 11/01/22 14:26 Levalbuterol 0.6 3 Mg/3 Ml Neb INHALATION 0.63 mg Q6H.RESP SOFIA Administration Metoclopramide HCl 5 mg 10/27/22 08:01 10/29/22 20:02 Metoclopramide 5 Mg/Ml Sdv 2 Ml IVP 5 mg Q6H PRN Administration NAUSEA AND VOMITI NG Metoprolol Tartrat e 25 mg 10/29/22 21:00 11/01/22 09:57 Metoprolol Tartr ate 25 Mg Tablet PO Not Given BID@0900,2100 REPLACED BY [facility] Nystatin 1 applic 10/26/22 21:00 11/01/22 09:53 Nystatin Powder 15 Gm Btl TOPICAL Not Given 0900,2100 REPLACED BY [facility] Ondansetron HCl 4 mg 10/08/22 13:09 10/27/22 04:23 Ondansetron 2 Mg /Ml Sdv 2 Ml IVP 4 mg Q6H PRN Administration NAUSEA AND VOMITI NG Pantoprazole Sodiu m 40 mg 11/01/22 09:00 11/01/22 09:[address] 40 Mg Tablet PO Not Given DAILY REPLACED BY [facility] Simethicone 40 mg 10/14/22 00:41 10/30/22 21:23 Simethicone 80 M g Chew PO 40 mg TID PRN Administration HICCUPS Trazodone HCl 300 mg 10/13/22 21:00 10/31/22 20:56 Trazodone 150 Mg Tablet PO 300 mg BEDTIME SOFIA Administration Vancomycin HCl 125 mg 10/26/22 17:00 11/01/22 14:31 Vancomycin 1,000 Mg Oral Jovana (Btl) PO Not Given QID REPLACED BY [facility] Vitals/I&O/Wt Last Vital Signs Temp 98.6 F 11/01/22 11:00 Pulse 94 11/01/22 17:00 Resp 16 11/01/22 16:40 BP 114/69 11/01/22 17:00 Pulse Ox 100 11/01/22 17:00 O2 Del Method 11/01/22 14:26 O2 Flow Rate 4 11/01/22 14:26 FiO2 50 11/01/22 16:40 11/01/22 11/01/22 11/01/22 06:59 14:59 22:59 Intake Total 1000 / 1000 840 / 1840 Output Total 2330 / 4345 3700 / 3700 1260 / 4960 Balance -2330 / -3115 -2700 / -2700 -420 / -3120 Weight last 48 hrs Weight 145.467 kg Weight 160.163 kg Physical Exam Narrative: Intubated sedated on mechanical ventilation. HENMT: COMMON NORMALS: normocephalic and atraumatic HEAD & SCALP: normocephalic and atraumatic Resp: COMMON NORMALS: clear to auscultation bilaterally EFFORT & INSPECTION: Yes symmetric chest movement AUSCULTATION: clear to auscultation bilaterally OTHER: Diminished air entry bilaterally Cardio: COMMON NORMALS: regular rate, regular rhythm, S1 normal heart sound present, S2 normal heart sound present, No gallops present (Cardio), No murmurs present (Cardio), No rub (Cardio) and Peripheral pulses 2+ throughout RATE: regular rate RHYTHM: regular rhythm HEART SOUNDS: S1 normal heart sound present and S2 normal heart sound present PERIPHERAL PULSES: Peripheral pulses 2+ throughout GI: COMMON NORMALS: Normal to inspection, nondistended, normoactive bowel sounds present, Soft to palpation, non-tender, No hepatosplenomegaly present and no masses AUSCULTATION: Yes normoactive bowel sounds PALPATION: Yes Soft to palpation and Yes No hepatosplenomegaly present RECTAL EXAM: Yes deferred OTHER: Wound VAC in place, ostomy site clean. Extremity: COMMON NORMALS: no clubbing, cyanosis or edema and no pedal edema Urinary Catheter Management: Orellana: Cath Placed During This Visit: yes, but has since been removed by the nurse Reason for Continuing Indwelling Catheter: Accurate Measurement of Urinary Output in Critically Ill Patients Urinary Catheter Date of Insertion: 10/15/22 Urinary Catheter Time of Insertion: 13:50 Date Urinary Catheter Removed: 10/10/22 Time Urinary Catheter Discontinued: 17:45 Data 11/01/22 15:33 11/01/22 02:17 A&P Assessment and plan (1) Ventilator dependent: Most likely secondary to postoperative status in setting of obstructive sleep apnea, COPD. Difficult to extubate given postoperative status with abdominal wound VAC. Baseline sleep apnea requiring CPAP up to pressure of 12. Noncompliant at home. Extubated to heated high flow on 10/26. Oxygen supplementation keeping saturation over 88%. Continue with DuoNebs every 6 hour, budesonide twice daily. Incentive spirometry, flutter valve. 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 Status post resection of colonic anastomosis and end ileostomy formation for wound dehiscence. Wound VAC, drains in place. Unfortunately patient started passing large blood clot from the colostomy site: on 11/01 CT abdomen and pelvis ( 11/01) : Showed: Apparent increased size of 6.7 x 6.1 x 2.4 cm lesion measuring 23 Hounsfield units in the region of the right rectus muscle, medial and inferior to the right lower quadrant colostomy suggesting possible complex fluid collection with or without infection. S/P Colostomy revision with control of bleeding: S/p cauterization of rectus sheath bleeding site S/P 4 units PRBCs , 3 units of FFP , tranexamic acid, platelets have been ordered. (3) Septic shock: Patient met sepsis criteria: Has elevated white cell count, endorgan dysfunction in the presence of TALON, fever, likely intra-abdominal infection as a source, with possible pneumonia. Now resolved. Keep mean artery pressure 65, saturation over 90%. Vancomycin stopped as MRSA negative. Last day of meropenem on 10/31. Course extended given possibility of abscess/collection intra-abdominally. Continue with IV fluids. (4) C. difficile colitis: Positive on 10/26. Start on oral vancomycin 125 mg 4 times daily. Monitor colostomy output. (5) Intra-abdominal collection: Seen on abdominal CT scan from 10/25. Query intra-abdominal abscess. Drain present. We will continue to monitor. Continue with extended course of IV antibiotics. (6) TALON (acute kidney injury): Baseline creatinine normal to 1. Trending down. Currently stable at 1.4. Robust urine output. Keep intake/output equal. Medical reconciliation done for nephrotoxic drugs. Nw currently 1.9. Monitor BMP daily. Maintain Orellana catheter. Strict input output charting. Overall 125 cc of fluid hydration per hour. (7) Obstructive sleep apnea: Not currently using cpap at home due to malfunction of machine. ABG with evidence of hypercapnic hypoxic respiratory failure. Known restrictive lung disease and asbestosis. At baseline uses CPAP at home, unable to utilize BiPAP given abdominal surgery. Currently saturating 93% on supplemental O2, does drop down to 70% on room air. Does not typically use oxygen at home. Continue to use DuoNeb and budesonide scheduled inhalation. No current indication for steroid use. Suspect that patient may have underlying baseline hypoxia and will likely require supplemental O2 at discharge. (8) Hypernatremia: Slight hyponatremia with sodium up to 146. Continue with D5 half NS at 100 cc/h. Continue with free water flushes at 250 every 4 hourly. Monitor BMP daily for now. (9) Hypertension: Chronic diagnosis, usually on bisoprolol-HCTZ and lisinopril. Goal blood pressure less than 140/90 mmHg with mean over 65. Restart home dose of metoprolol 50 mg twice daily. (10) Atrial fibrillation with rapid ventricular response: In a patient with known chronic atrial fibrillation, on bisoprolol in combination with HCTZ as only rate controlling medication at home. Currently rate controlled with amiodarone 400 mg twice daily. Takes Xarelto at home for anticoagulation. Off anticoagulation as per request from surgical team. Started on prophylaxis Heparin 5000 every 8 hourly. 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 Has myocardial perfusion study on 10/05/22. Ischemic work-up was negative. Currently troponin series additionally negative. No acute ST-T wave changes to suggest acute coronary syndrome. (11) Anemia: (12) Hyperkalemia: Now resolved (13) Restrictive lung disease due to kyphoscoliosis: Aware (14) COVID-19: Had COVID in early 08/2022 and was hospitalized in [place] briefly needing oxygen. (15) Pleural effusion: Moderate right-sided pleural effusion: Seen on CT chest Ultrasound chest: Possible thoracentesis. (16) Pneumonia: Hospital acquired Pneumonia: Patient been complaining of coughing. CTA chest has shown: Consolidation in the right upper lobe, right middle lobe, and right lower lobe. Patient has been restarted meropenem, will also start him on vancomycin. Plan CODE STATUS: Full code DVT prophylaxis: On SCDs Attestations Medical Necessity Statement*: Per primary Coding Level of Care Code Acute Code for Chg Fwd Diagnoses Ventilator dependent Z99.11 Status post left hemicolectomy Z90.49 Septic shock A41.9; R65.21 C. difficile colitis A04.72 Intra-abdominal collection R18.8 TALON (acute kidney injury) N17.9 Obstructive sleep apnea G47.33 Hypernatremia E87.0 Hypertension I10 Atrial fibrillation with rapid ventricular response I48.91 Anemia D64.9 Hyperkalemia E87.5 Restrictive lung disease due to kyphoscoliosis J98.4; M41.9 COVID-19 U07.1 Pleural effusion J90 Pneumonia J18.9
[2022-11-01 17:35] LABS: Hematocrit 28.9 % (42.0-52.0); Hemoglobin 8.7 g/dL (11.7-16.6)
[2022-11-01 18:01] LABS: ABG PCO2 48.4 mmHg (35-45); ABG PH Result 7.52 (7.35-7.45); Arterial Blood Gas Hematocrit 28.3 % (42-52); Base Excess ABG 14.6 mmol/L (-2.0-2.0); Blood Gas Sample Type Arterial; Carboxyhemoglobin 1.9 %THgb (0.4-20.1); HCO3 ABG 39.2 mmol/L (22-26); HGB O2 Sat 94.3 % (95-100); Ionized Calcium Level - ABG 1.4 mmol/L (1.1-1.4); Methemoglobin 0.5 % (0.4-1.5); Oxygen Saturation ABG 96.6; Potassium Level - ABG 4.6 mmol/L (3.5-5.0); Total Hemoglobin 9.2 g/dL (14-18)
[2022-11-01 18:02] LABS: Alveolar-Arterial Oxygen Gradi 30.6 mmHg (5-10); Blood Gas Operator Identificat MONRO; Blood Gas Sample Site Not specified; Oxygen Device VENT
[2022-11-01] MEDS: meropenem 500 MG in sodium chloride 0.9% (plus) 50 ML 100 MG IV (18:04)
[2022-11-01 18:20] LABS: Blood Urea Nitrogen 23 mg/dL (8-23); Carbon Dioxide 35 mmol/L (22-29); Chloride 107 mmol/L (98-107); Glomerular Filtration Rate 60.4 mL/min (90-130); Glucose 112 mg/dL (65-115); Osmolality Calculated 306 mOsm/kg (285-295); Sodium 146 mmol/L (136-145)
--- NOTE | 2022-11-01 19:08 | XRR_ITS ---
PROCEDURE INFORMATION: Exam: XR Chest Exam date and time: 11/01/2022 7:37 PM Age: 67 years old Clinical indication: Device placement; Other: Og placement TECHNIQUE: Imaging protocol: Radiologic exam of the chest. Views: 1 view. COMPARISON: CR (CHEST, ) 11/01/2022 5:46 PM FINDINGS: Tubes, catheters and devices: Feeding tube is in satisfactory position. Endotracheal tube is partially obscured by spine hardware. Lungs: Persistent bilateral airspace opacities, most prominently in the right perihilar region. Trace left pleural effusion suspected. No pneumothorax. Pleural spaces: See Lungs finding. Heart/Mediastinum: Stable cardiomediastinal silhouette. Bones/joints: Marr rods noted. XR/XR chest 1V portable [id number] IMPRESSION: Persistent bilateral airspace opacities, concerning for pneumonia. Clinical correlation is recommended.
[2022-11-01] MEDS: metoprolol tartrate 25 mg Tablet PO (21:08)
[2022-11-01] MEDS: nystatin powder 15 gm Btl 1 APPLIC TOPICAL (21:08)
--- NOTE | 2022-11-01 21:28 | PC.NURSE ---
Physician notified of patient being on levophed with metoprolol 25mg PO due for A.fib. Patient is currently in A.fib Order given to give metoprolol and hold trazodone due to patient being sedated.
[2022-11-02] VITALS (112 sets, daily range): BP systolic 92–164; BP diastolic 42–90; PULSE 69–98; RESP 15–20; TEMP 36.6–37.2; O2SAT 94–100
[2022-11-02] MEDS: propofol 1,000 MG/100 ML INJ 21.82 MG IV
[2022-11-02 00:01] LABS: Hematocrit 25.2 % (42.0-52.0); Hemoglobin 7.8 g/dL (11.7-16.6)
[2022-11-02] MEDS: sodium chloride 0.9% (100 ml) 100 ML ×3 (00:31→06:49)
[2022-11-02] MEDS: meropenem 500 MG in sodium chloride 0.9% (plus) 50 ML 100 MG IV ×3 (00:32→17:14)
[2022-11-02] MEDS: heparin 5,000 unit/mL INJ 1 mL 5000 UNIT SUBCUT ×3 (02:09→17:42)
[2022-11-02] MEDS: levalbuterol 0.63 mg/3 mL Neb INHALATION ×4 (02:19→19:59)
--- NOTE | 2022-11-02 02:43 | PC.NURSE ---
Patient had multiple blood products prepared in blood bank. Orders in chart not clear. Called Dr. Collier to clarify what orders are needed for patient. Dr. Collier ordered to give 3 units of platelets that are currently ordered. H&H lab Stat and call with results. Physician notified of lab results with order given to transfuse 2 units of PRBC.
[2022-11-02] MEDS: propofol 1,000 MG/100 ML INJ 26.18 MG IV ×6 (03:13→23:50)
[2022-11-02 05:34] LABS: Basophils % 0.4 %; Eosinophils # 0.3 10^3/uL (0.0-0.8); Eosinophils % 3.1 %; Hematocrit 25.5 % (42.0-52.0); Hemoglobin 7.9 g/dL (11.7-16.6); Lymphocytes # 1.3 10^3/uL (0.8-4.8); Lymphocytes % 14.1 %; Mean Corpuscular Hemoglobin 29.7 pg (28.0-34.0); Mean Corpuscular Volume 95.9 fl (80-94); Mean Platelet Volume 9.9 fL (7.4-10.4); Monocytes # 0.8 10^3/uL (0.2-0.9); Monocytes % 8.6 %; Neutrophils # 6.46 10^3/uL (1.8-7.7); Neutrophils % 72.6 %; Nucleated Red Blood Cells % 0 %; Platelet Count 252 10^3/cmm (130-400); Red Blood Count 2.66 10^6/uL (4.1-5.3); Red Cell Distribution Width 18.9 % (12.1-15.1); White Blood Count 8.9 10^3/uL (4.0-10.0)
[2022-11-02 05:47] LABS: INR 1.28 (0.8-1.2); Partial Thromboplastin Time 32.6 SECONDS (23.9-36.7)
[2022-11-02 05:49] LABS: Fibrinogen 343 mg/dL (174-498)
[2022-11-02 05:54] LABS: Anion Gap 9.6 (5-19); Blood Urea Nitrogen 24 mg/dL (8-23); Carbon Dioxide 35 mmol/L (22-29); Chloride 109 mmol/L (98-107); Glomerular Filtration Rate 55.1 mL/min (90-130); Glucose 121 mg/dL (65-115); Magnesium 1.6 mg/dL (1.7-2.3); Osmolality Calculated 313 mOsm/kg (285-295); Phosphorus 2.5 mg/dL (2.5-4.5); Potassium 4.6 mmol/L (3.5-5.1); Sodium 149 mmol/L (136-145)
[2022-11-02] MEDS: magnesium sulfate premix 4 GM/100 ML PREMIX IV (07:17)
--- NOTE | 2022-11-02 07:56 | P.PN_ITS ---
Subjective Subjective: Nonbloody colostomy output this morning. He was weaned off of the Levophed. Remains intubated. He was bleeding profusely last night from his right rectus muscle, which required a partial takedown of the colostomy and control of hemorrhage, with colostomy revision. He was transfused 6 units PRB Cs, 3 units FFP, 1 pool of platelets and given tranexamic acid. It appears he is no longer bleeding Vitals/I&O/Wt Last Vital Signs Temp 98.7 F 11/02/22 06:13 Pulse 83 11/02/22 06:45 Resp 16 11/02/22 06:13 BP 156/77 11/02/22 06:45 Pulse Ox 100 11/02/22 06:45 O2 Del Method 11/02/22 06:45 O2 Flow Rate 4 11/01/22 14:26 FiO2 50 11/02/22 06:45 11/01/22 11/02/22 11/02/22 22:59 06:59 14:59 Intake Total 1027.281 / 2027.281 1654.387 / 3681.668 1582.85 / 1582.85 Output Total 3060 / 6760 610 / 7370 Balance -2032.719 / -4732.719 1044.387 / -3688.332 1582.85 / 1582.85 Weight last 48 hrs Weight 330 lb 11.094 oz Weight 320 lb 11.2 oz Physical Exam Narrative: General: No acute distress, intubated and sedated s Abdomen, soft, nondistended, wound VAC in place with serosanguineous output,, no grimace to palpation wound measures 30 cm x 9 cm x 3 cm deep Drain 2 serosanguineous drain 3 purulent with minimal output Urinary Catheter Management: Orellana: Cath Placed During This Visit: yes, but has since been removed by the nurse Reason for Continuing Indwelling Catheter: Accurate Measurement of Urinary Output in Critically Ill Patients Urinary Catheter Date of Insertion: 10/15/22 Urinary Catheter Time of Insertion: 13:50 Date Urinary Catheter Removed: 10/10/22 Time Urinary Catheter Discontinued: 17:45 Data 11/02/22 05:18 11/02/22 05:18 Micro: Microbiology 11/01/22 17:00 Gram Stain - Final Sputum - Endotracheal Tube Aspirate A&P Assessment and plan (1) Colon cancer: (2) Status post left hemicolectomy: (3) C. difficile colitis: (4) Intra-abdominal collection: (5) Pneumonia: (6) Pleural effusion: (7) Anemia: (8) TALON (acute kidney injury): Plan Status post left hemicolectomy for colon cancer at the splenic flexure Status post resection of colonic anastomosis and end ileostomy formation due to anastomotic leak Status post control of hemorrhage from right rectus muscle and colostomy revisio n Tube feeds with Osmolite at 60 cc/h Wound VAC change by nursing this Saturday I will keep a close eye out for propagation of the dehiscence and 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 Attempting closure via wound VAC vancomycin orally for 10 days- last day Nov 05 Drain #3 abuts intraabdominal fluid collection Hospitalist following-appreciate input will consult infectious disease Attestations Medical Necessity Statement*: Patient requires multiple more nights in the hospital for intensive care due to pneumonia following left hemicolectomy for invasive adenocarcinoma Coding Level of Care Code Acute Code for Chg Fwd Diagnoses Colon cancer C18.9 Status post left hemicolectomy Z90.49 C. difficile colitis A04.72 Intra-abdominal collection R18.8 Pneumonia J18.9 Pleural effusion J90 Anemia D64.9 TALON (acute kidney injury) N17.9
--- NOTE | 2022-11-02 08:30 | PC.SOCIAL ---
IMM not given Pt is intubated at this time. IMM not updated. Pt is not expected to discharge in the next 24-48hrs.
[2022-11-02] MEDS: budesonide 0.5 mg/2 mL Neb INHALATION ×2 (08:44→20:00)
[2022-11-02] MEDS: amiodarone 200 mg Tablet PO (08:53)
[2022-11-02] MEDS: metoprolol tartrate 25 mg Tablet PO ×2 (08:56→21:31)
[2022-11-02] MEDS: nystatin powder 15 gm Btl 1 APPLIC TOPICAL ×2 (08:58→21:31)
--- NOTE | 2022-11-02 09:15 | PC.NURSE ---
repositioned at this time oral care done and Dr Soares here exam pt at this time check colostomy appears not bleeding at this time . og tube clamped opens eyes and responds to questions abdomen with wound vac in place and richard drains intact .right cvl intact
--- NOTE | 2022-11-02 09:51 | PC.CHAP ---
Pastoral Care Encounter/Spiritual Assessment Type of Contact [] Declined acupuncture physician visit [] Patient/Family/Request visit [] Outpatient visit [] Follow-up visit [] Physician referral [] Code/Alert [x] Routine visit [] Staff referral [] Actively dying [x] Patient sleeping [] Family support [] [] Out of room [] Palliative care [] [] Receiving care in room [] Pre-surgical visit [] Trauma [] Long length of stay [x] ICU visit [x] Other:PT back on vent Relational/Emotional Strength [] Patient feels connected with others/family/visitors/staff [] Distress [] Loneliness/isolation [] Abandonment Spirituality of Patient [] Person of Maryanne [] Attends Advent of their Maryanne [] Believes in Prayer [] Reads Bible or Mormonism materials [] There are Spiritual issues to be addressed Pl[employer] 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 [x] Prayer [] Active listening [] Non-anxious presence [] Spiritual/emotional support [] Crisis/trauma care [] Spiritual counseling [] Bereavement support [] Provided bereavement packet [] Provided Bible/devotional materials [] Provided toy/stuffed animal, coloring book to patient or family member [] Provided Communion [] Anointing/[place] [] Salvation [x] Completed spiritual assessment [] Other: Impact on Illness or Injury [] Angry [] Fearful [] Anxious [] Often cries [] Exhaustion [] Unable to work [] Unable to attend muslim [] Unable to walk/stand [] Unable to read [] Unable to drive [] Unable to eat/drink [] Unable to sleep [] Unable to be with family [] Patient intubated [] Other: Summary Time spent with patient
[2022-11-02] MEDS: dextrose 5% 1,000 ML 50 ML IV (10:41)
--- NOTE | 2022-11-02 15:13 | PM.PN ---
Subjective Subjective: Patient is currently intubated sedated on mechanical ventilation x-ray chest has shown: Significant right-sided infiltrates. Medications: Reviewed: Yes Medication Review Details: Generic Name Dose Route Start Last Admin Trade Name Freq PRN Reason Stop Dose Admin Acetaminophen 650 mg 10/13/22 19:53 10/13/22 20:21 Acetaminophen 32 5 Mg Tablet PO 650 mg Q6H PRN Administration FEVER Albuterol Sulfate 2.5 mg 10/22/22 10:33 10/26/22 07:35 Albuterol 2.5 Mg /3 Ml Neb INHALATION 2.5 mg Q6H.RESP PRN Administration SHORTNESS OF EDWIGE TH Amiodarone HCl 200 mg 10/30/22 09:00 11/02/22 08:53 Amiodarone 200 M g Tablet PO 200 mg DAILY SOFIA Administration Amlodipine Besylat e 10 mg 11/01/22 09:15 11/01/22 09:53 Amlodipine 10 Mg Tablet PO Not Given DAILY SOFIA Atorvastatin Calci um 20 mg 10/13/22 21:00 10/14/22 20:20 Atorvastatin 40 Mg Tablet PO 20 mg BEDTIME SOFIA Administration Budesonide 0.5 mg 10/08/22 20:00 11/02/22 08:44 Budesonide 0.5 M g/2 Ml Neb INHALATION 0.5 mg BID.RESPIRATORY S CH Administration Folic Acid 1 mg 10/13/22 22:00 10/14/22 22:01 Folic Acid 1 Mg Tablet PO 1 mg DAILY@2200 SOFIA Administration Heparin Sodium (Po rcine) 5,000 unit 10/26/22 10:30 11/02/22 10:39 Heparin 5,000 Un it/Ml Inj 1 Ml SUBCUT 5,000 unit Q8H SOFIA Administration Dextrose 1,000 mls @ 75 ml s/hr 10/31/22 09:30 11/02/22 10:43 D5w IV 75 mls/hr .[id number] SOFIA Infusion Tranexamic Acid 1, 000 mg/ 110 mls @ 330 mls /hr 11/01/22 14:23 11/02/22 07:28 Sodium Chloride IV Infused Q30M PRN Infusion BLEEDING Propofol 1,000 mg in 100 m ls @ 0 mls/hr 11/01/22 16:30 11/02/22 11:27 Diprivan IV 30 mcg/kg/min .Q0M SOFIA 26.18 mls/hr Administration Protocol Per Protocol Meropenem 500 mg/ Sodium 50 mls @ 100 mls/ hr 11/01/22 17:00 11/02/22 09:25 Chloride IV Infused Q8H SOFIA Infusion Protocol Fentanyl 1,000 mcg / Sodium 100 mls @ 0 mls/h r 11/01/22 17:00 11/02/22 07:27 Chloride IV 75 mcg/hr .Q0M SOFIA 7.5 mls/hr Administration Protocol Per Protocol Norepinephrine Bit artrate 4 mg 254 mls @ 0 mls/h r 11/01/22 18:00 11/02/22 02:14 / Dextrose IV 0 mcg/min .Q0M SOFIA 0 mls/hr Titration Protocol Per Protocol Vancomycin HCl 2,0 00 mg/ 500 mls @ 250 mls /hr 11/01/22 20:00 11/02/22 10:52 Sodium Chloride IV Infused Q12H SOFIA Infusion Levalbuterol HCl 0.63 mg 10/26/22 20:00 11/02/22 13:10 Levalbuterol 0.6 3 Mg/3 Ml Neb INHALATION 0.63 mg Q6H.RESP SOFIA Administration Metoclopramide HCl 5 mg 10/27/22 08:01 10/29/22 20:02 Metoclopramide 5 Mg/Ml Sdv 2 Ml IVP 5 mg Q6H PRN Administration NAUSEA AND VOMITI NG Metoprolol Tartrat e 25 mg 10/29/22 21:00 11/02/22 08:56 Metoprolol Tartr ate 25 Mg Tablet PO 25 mg BID@0900,2100 SOFIA Administration Nystatin 1 applic 10/26/22 21:00 11/02/22 08:58 Nystatin Powder 15 Gm Btl TOPICAL 1 applic 0900,2100 SOFIA Administration Ondansetron HCl 4 mg 10/08/22 13:09 10/27/22 04:23 Ondansetron 2 Mg /Ml Sdv 2 Ml IVP 4 mg Q6H PRN Administration NAUSEA AND VOMITI NG Simethicone 40 mg 10/14/22 00:41 10/30/22 21:23 Simethicone 80 M g Chew PO 40 mg TID PRN Administration HICCUPS Trazodone HCl 300 mg 10/13/22 21:00 11/01/22 21:08 Trazodone 150 Mg Tablet PO Not Given BEDTIME SOFIA Vancomycin HCl 125 mg 10/26/22 17:00 11/02/22 12:28 Vancomycin 1,000 Mg Oral Jovana (Btl) PO 125 mg QID SOFIA Administration Vitals/I&O/Wt Last Vital Signs Temp 98 F 11/02/22 08:00 Pulse 81 11/02/22 14:00 Resp 15 11/02/22 13:16 BP 143/80 11/02/22 14:00 Pulse Ox 97 11/02/22 14:00 O2 Del Method 11/02/22 13:11 O2 Flow Rate 4 11/01/22 14:26 FiO2 45 11/02/22 13:16 11/02/22 11/02/22 11/02/22 06:59 14:59 22:59 Intake Total 1654.387 / 3681.668 3034.517 / 3034.517 Output Total 610 / 7370 4115 / 4115 Balance 1044.387 / -3688.332 -1080.483 / -1080.483 Weight last 48 hrs Weight 150 kg Weight 145.467 kg Physical Exam Narrative: Intubated sedated on mechanical ventilation. Const: COMMON NORMALS: patient oriented x3 HENMT: COMMON NORMALS: normocephalic and atraumatic HEAD & SCALP: normocephalic and atraumatic Resp: COMMON NORMALS: clear to auscultation bilaterally EFFORT & INSPECTION: Yes symmetric chest movement AUSCULTATION: clear to auscultation bilaterally OTHER: Diminished air entry bilaterally Cardio: COMMON NORMALS: regular rate, regular rhythm, S1 normal heart sound present, S2 normal heart sound present, No gallops present (Cardio), No murmurs present (Cardio), No rub (Cardio) and Peripheral pulses 2+ throughout RATE: regular rate RHYTHM: regular rhythm HEART SOUNDS: S1 normal heart sound present and S2 normal heart sound present PERIPHERAL PULSES: Peripheral pulses 2+ throughout GI: COMMON NORMALS: Normal to inspection, nondistended, normoactive bowel sounds present, Soft to palpation, non-tender, No hepatosplenomegaly present and no masses AUSCULTATION: Yes normoactive bowel sounds PALPATION: Yes Soft to palpation and Yes No hepatosplenomegaly present RECTAL EXAM: Yes deferred OTHER: Wound VAC in place, ostomy site clean. Extremity: COMMON NORMALS: no clubbing, cyanosis or edema and no pedal edema Neuro: COMMON NORMALS: patient oriented x3 Urinary Catheter Management: Orellana: Cath Placed During This Visit: yes, but has since been removed by the nurse Reason for Continuing Indwelling Catheter: Accurate Measurement of Urinary Output in Critically Ill Patients Urinary Catheter Date of Insertion: 10/15/22 Urinary Catheter Time of Insertion: 13:50 Date Urinary Catheter Removed: 10/10/22 Time Urinary Catheter Discontinued: 17:45 Data 11/02/22 05:18 11/02/22 05:18 Micro: Microbiology 11/01/22 17:00 Gram Stain - Final Sputum - Endotracheal Tube Aspirate A&P Assessment and plan (1) Ventilator dependent: Most likely secondary to postoperative status in setting of obstructive sleep apnea, COPD. Difficult to extubate given postoperative status with abdominal wound VAC. Baseline sleep apnea requiring CPAP up to pressure of 12. Noncompliant at home. Extubated to heated high flow on 10/26. Oxygen supplementation keeping saturation over 88%. Continue with DuoNebs every 6 hour, budesonide twice daily. Incentive spirometry, flutter valve. 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 Status post resection of colonic anastomosis and end ileostomy formation for wound dehiscence. Wound VAC, drains in place. Unfortunately patient started passing large blood clot from the colostomy site: on 11/01 CT abdomen and pelvis ( 11/01) : Showed: Apparent increased size of 6.7 x 6.1 x 2.4 cm lesion measuring 23 Hounsfield units in the region of the right rectus muscle, medial and inferior to the right lower quadrant colostomy suggesting possible complex fluid collection with or without infection. S/P Colostomy revision with control of bleeding: S/p cauterization of rectus sheath bleeding site S/P 6 units PRBCs , 3 units of FFP , tranexamic acid, 1 bag platelet. (3) Septic shock: Patient met sepsis criteria: Has elevated white cell count, endorgan dysfunction in the presence of TALON, fever, likely intra-abdominal infection as a source, with possible pneumonia. Now resolved. Keep mean artery pressure 65, saturation over 90%. Vancomycin stopped as MRSA negative. Last day of meropenem on 10/31. Course extended given possibility of abscess/collection intra-abdominally. Continue with IV fluids. (4) C. difficile colitis: Positive on 10/26. Start on oral vancomycin 125 mg 4 times daily. Monitor colostomy output. (5) Intra-abdominal collection: Seen on abdominal CT scan from 10/25. Query intra-abdominal abscess. Drain present. We will continue to monitor. Continue with extended course of IV antibiotics. Infectious disease consulted (6) TALON (acute kidney injury): Baseline serum creatinine usually around 1 Monitor BMP Avoid nephrotoxic's Monitor intake output charting (7) Obstructive sleep apnea: Not currently using cpap at home due to malfunction of machine. ABG with evidence of hypercapnic hypoxic respiratory failure. Known restrictive lung disease and asbestosis. At baseline uses CPAP at home, unable to utilize BiPAP given abdominal surgery. Currently saturating 93% on supplemental O2, does drop down to 70% on room air. Does not typically use oxygen at home. Continue to use DuoNeb and budesonide scheduled inhalation. No current indication for steroid use. Suspect that patient may have underlying baseline hypoxia and will likely require supplemental O2 at discharge. (8) Hypernatremia: Continue D5 water at 75 cc an hour Monitor serum sodium (9) Hypertension: Chronic diagnosis, usually on bisoprolol-HCTZ and lisinopril. Goal blood pressure less than 140/90 mmHg with mean over 65. Restart home dose of metoprolol 50 mg twice daily. (10) Atrial fibrillation with rapid ventricular response: In a patient with known chronic atrial fibrillation, on bisoprolol in combination with HCTZ as only rate controlling medication at home. Currently rate controlled with amiodarone 400 mg twice daily. Takes Xarelto at home for anticoagulation. Off anticoagulation as per request from surgical team. Started on prophylaxis Heparin 5000 every 8 hourly. 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 Has myocardial perfusion study on 10/05/22. Ischemic work-up was negative. Currently troponin series additionally negative. No acute ST-T wave changes to suggest acute coronary syndrome. (11) Anemia: Acute blood loss anemia Has received 7 units of PRBC transfusion so far Monitor H&H (12) Hyperkalemia: Now resolved (13) Restrictive lung disease due to kyphoscoliosis: Aware (14) COVID-19: Had COVID in early 08/2022 and was hospitalized in [place] briefly needing oxygen. (15) Pleural effusion: Moderate right-sided pleural effusion: Seen on CT chest Ultrasound chest: Has not shown any significant pocket for thoracentesis Monitor chest x-ray (16) Pneumonia: Hospital acquired Pneumonia: Patient been complaining of coughing. CTA chest has shown: Consolidation in the right upper lobe, right middle lobe, and right lower lobe. Patient has been restarted on meropenem as well as vancomycin. Plan CODE STATUS: Full code DVT prophylaxis: On SCDs Attestations Medical Necessity Statement*: Per primary Coding Level of Care Code Acute Code for Chg Fwd Diagnoses Ventilator dependent Z99.11 Status post left hemicolectomy Z90.49 Septic shock A41.9; R65.21 C. difficile colitis A04.72 Intra-abdominal collection R18.8 TALON (acute kidney injury) N17.9 Obstructive sleep apnea G47.33 Hypernatremia E87.0 Hypertension I10 Atrial fibrillation with rapid ventricular response I48.91 Anemia D64.9 Hyperkalemia E87.5 Restrictive lung disease due to kyphoscoliosis J98.4; M41.9 COVID-19 U07.1 Pleural effusion J90 Pneumonia J18.9
[2022-11-02 15:28] LABS: ABG PCO2 44.1 mmHg (35-45); ABG PH Result 7.53 (7.35-7.45); Arterial Blood Gas Hematocrit 26.3 % (42-52); Base Excess ABG 12.7 mmol/L (-2.0-2.0); Blood Gas Allen Test Pos; Blood Gas Operator Identificat MONRO; Blood Gas Sample Site Not specified; Blood Gas Sample Type Arterial; Carboxyhemoglobin 1.5 %THgb (0.4-20.1); Fractionated Inspired Oxygen 0.4 %; HCO3 ABG 36.7 mmol/L (22-26); HGB O2 Sat 94.7 % (95-100); Ionized Calcium Level - ABG 1.2 mmol/L (1.1-1.4); Methemoglobin 0.6 % (0.4-1.5); Oxygen Device VENT; Oxygen Saturation ABG 96.7; PO2 ABG 72.1 mmHg (80.0-100.0); Potassium Level - ABG 3.9 mmol/L (3.5-5.0); Total Hemoglobin 8.6 g/dL (14-18)
--- NOTE | 2022-11-02 16:15 | PC.NURSE ---
unable to obtain picc placement until saturday notified doctor central line remains in right groin area tube feed started at low dose
[2022-11-02 16:53] LABS: Hematocrit 25.6 % (42.0-52.0); Hemoglobin 8.1 g/dL (11.7-16.6)
[2022-11-02 17:40] LABS: Alanine Aminotransferase 18 U/L (0-41); Albumin Level 2.5 g/dL (3.5-5.2); Alkaline Phosphatase 89 U/L (40-130); Anion Gap 9.3 (5-19); Aspartate Amino Transferase 19 U/L (0-40); Blood Urea Nitrogen 23 mg/dL (8-23); Calcium 8.8 mg/dL (8.5-10.5); Carbon Dioxide 35 mmol/L (22-29); Chloride 109 mmol/L (98-107); Globulin 2.5 g/dL (1.3-4.6); Glomerular Filtration Rate 60.4 mL/min (90-130); Glucose 103 mg/dL (65-115); Osmolality Calculated 312 mOsm/kg (285-295); Potassium 4.3 mmol/L (3.5-5.1); Sodium 149 mmol/L (136-145); Total Bilirubin 0.5 mg/dL (0.15-1.2)
[2022-11-02 20:48] LABS: Hematocrit 27.3 % (42.0-52.0); Hemoglobin 8.5 g/dL (11.7-16.6)
[2022-11-03] VITALS (73 sets, daily range): BP systolic 87–137; BP diastolic 46–83; PULSE 66–94; RESP 15–20; TEMP 36.1–37.2; O2SAT 92–100
[2022-11-03] MEDS: meropenem 500 MG in sodium chloride 0.9% (plus) 50 ML 100 MG IV ×3 (00:34→16:30)
[2022-11-03 00:56] LABS: Hematocrit 25.8 % (42.0-52.0)
[2022-11-03] MEDS: levalbuterol 0.63 mg/3 mL Neb INHALATION ×4 (02:58→19:33)
[2022-11-03] MEDS: heparin 5,000 unit/mL INJ 1 mL 5000 UNIT SUBCUT ×3 (04:25→17:31)
[2022-11-03] MEDS: propofol 1,000 MG/100 ML INJ 26.18 MG IV ×4 (04:25→17:00)
[2022-11-03 04:27] LABS: Hematocrit 27.1 % (42.0-52.0); Hemoglobin 8.4 g/dL (11.7-16.6)
--- NOTE | 2022-11-03 04:34 | PC.NURSE ---
Attempted to give patient a bed bath. Patient became bradycardic with HR dropping to low 50's and BP map dropping to mid 50's. Anterior portion of bath performed and complete. Patient is not able to tolerate complete bath at this time.
[2022-11-03 04:45] LABS: INR 1.17 (0.8-1.2)
[2022-11-03 04:46] LABS: Partial Thromboplastin Time 32.3 SECONDS (23.9-36.7)
[2022-11-03 04:49] LABS: Fibrinogen 330 mg/dL (174-498)
[2022-11-03 05:18] LABS: Magnesium 2.1 mg/dL (1.7-2.3)
[2022-11-03] MEDS: dextrose 5% 1,000 ML 75 ML IV (06:22)
[2022-11-03 07:00] LABS: Hematocrit 26.6 % (42.0-52.0); Hemoglobin 8.2 g/dL (11.7-16.6)
[2022-11-03 07:36] LABS: Vancomycin Trough 34.7 ug/mL (10-15)
--- NOTE | 2022-11-03 07:39 | PC.NURSE ---
johanna segal called to pharmacy at this time medication changed
[2022-11-03 08:20] LABS: Basophils # 0.1 10^3/uL (0.0-0.1); Basophils % 0.6 %; Eosinophils # 0.4 10^3/uL (0.0-0.8); Hematocrit 26.6 % (42.0-52.0); Hemoglobin 8.1 g/dL (11.7-16.6); Lymphocytes # 1.1 10^3/uL (0.8-4.8); Lymphocytes % 14.5 %; Mean Corpuscular HGB Conc 30.5 g/dL (30.0-36.0); Mean Corpuscular Hemoglobin 29.7 pg (28.0-34.0); Mean Corpuscular Volume 97.4 fl (80-94); Mean Platelet Volume 10.3 fL (7.4-10.4); Monocytes # 0.7 10^3/uL (0.2-0.9); Monocytes % 9.4 %; Neutrophils # 5.37 10^3/uL (1.8-7.7); Neutrophils % 69.6 %; Nucleated Red Blood Cells % 0 %; Platelet Count 215 10^3/cmm (130-400); Red Blood Count 2.73 10^6/uL (4.1-5.3); Red Cell Distribution Width 18.6 % (12.1-15.1); White Blood Count 7.7 10^3/uL (4.0-10.0)
[2022-11-03] MEDS: pantoprazole 40 mg SDV IVP (08:24)
[2022-11-03] MEDS: amiodarone 200 mg Tablet PO (08:25)
[2022-11-03] MEDS: nystatin powder 15 gm Btl 1 APPLIC TOPICAL ×2 (08:27→21:25)
[2022-11-03 09:10] LABS: Alanine Aminotransferase 22 U/L (0-41); Albumin Level 2.4 g/dL (3.5-5.2); Alkaline Phosphatase 91 U/L (40-130); Anion Gap 11.8 (5-19); Aspartate Amino Transferase 25 U/L (0-40); Blood Urea Nitrogen 23 mg/dL (8-23); Calcium 8.2 mg/dL (8.5-10.5); Carbon Dioxide 30 mmol/L (22-29); Chloride 107 mmol/L (98-107); Globulin 2.9 g/dL (1.3-4.6); Glomerular Filtration Rate 55.1 mL/min (90-130); Glucose 116 mg/dL (65-115); Osmolality Calculated 305 mOsm/kg (285-295); Phosphorus 3.2 mg/dL (2.5-4.5); Potassium 3.8 mmol/L (3.5-5.1); Sodium 145 mmol/L (136-145); Total Bilirubin 0.4 mg/dL (0.15-1.2); Total Protein 5.3 g/dL (6.6-8.7)
[2022-11-03] MEDS: budesonide 0.5 mg/2 mL Neb INHALATION ×2 (09:16→19:33)
--- NOTE | 2022-11-03 10:31 | PC.NURSE ---
turned and repositioned linen changed underneath patient and position off bottom yumiko care done colostomy output with old blood tinge noted
--- NOTE | 2022-11-03 10:42 | P.PN_ITS ---
Subjective Subjective: Hemodynamically stable overnight Medications: Reviewed: Yes Vitals/I&O/Wt Last Vital Signs Temp 98.8 F 11/03/22 07:30 Pulse 86 11/03/22 10:00 Resp 16 11/03/22 09:25 BP 94/49 11/03/22 10:00 Pulse Ox 97 11/03/22 10:00 O2 Del Method 11/03/22 09:25 O2 Flow Rate 4 11/01/22 14:26 FiO2 35 11/03/22 10:00 11/02/22 11/03/22 11/03/22 22:59 06:59 14:59 Intake Total 470 / 3254.517 1766.367 / 5020.884 293.125 / 293.125 Output Total 50 / 855 1000 / 1855 125 / 125 Balance 420 / 2399.517 766.367 / 3165.884 168.125 / 168.125 Weight last 48 hrs Weight 332 lb 14.368 oz Weight 330 lb 11.094 oz Physical Exam Narrative: Generally: Sedated and intubated Lungs: Clear to auscultation. The patient not requiring a lot of support from the ventilator Cardiovascular: Regular rate and rhythm. I do not appreciate any murmurs. The patient does not appear to be on pressors. Abdomen: Obese, wound vacs on the midline wound. The patient has good colostomy output. The patient's ostomy is viable. The patient has positive bowel sounds. There is no rushes or tinkles. The patient's abdomen is nondistended. Extremities: No edema Urinary Catheter Management: Orellana: Cath Placed During This Visit: yes, but has since been removed by the nurse Reason for Continuing Indwelling Catheter: Accurate Measurement of Urinary O utput in Critically Ill Patients Urinary Catheter Date of Insertion: 10/15/22 Urinary Catheter Time of Insertion: 13:50 Date Urinary Catheter Removed: 10/10/22 Time Urinary Catheter Discontinued: 17:45 Data 11/03/22 08:10 11/03/22 08:10 Micro: Microbiology 11/01/22 17:00 Gram Stain - Final Sputum - Endotracheal Tube Aspirate Sputum Culture - Preliminary A&P Assessment and plan (1) TALON (acute kidney injury): Appears to be resolving. The patient is tolerating his tube feedings. We are advancing his tube feedings to goal. We are decreasing the patient's IV fluids. (2) Colon cancer: Status post left hemicolectomy. (3) Status post left hemicolectomy: Patient's hemoglobin is stable after his abdominal wall bleed from a couple days ago. This patient appears to be stable. He appears to be slowly improving. We will continue current therapy. Attestations Medical Necessity Statement*: Continued ICU care Coding Level of Care Code 33176 Medical Decision Making Moderate Complexity Diagnoses TALON (acute kidney injury) N17.9 Colon cancer C18.9 Status post left hemicolectomy Z90.49
--- NOTE | 2022-11-03 11:14 | PM.PN ---
Subjective Subjective: Patient is currently intubated sedated on mechanical ventilation. Continue to have good urine output blood pressure is slightly on the softer side, but he has maintained a decent MAP, overnight had to be placed on minimal dose of Levophed which has been turned off this morning. Hypernatremia has resolved, will discontinue IV fluids, currently we will continue with free water flushes. Tolerating tube feed. On minimal ventilator settings (tidal volume 500 rate 15, PEEP of 8 and FiO2 of 40%,vc/ac mode) H&H is a stable, serum creatinine appears to be peaking. High vancomycin trough. Medications: Reviewed: Yes Medication Review Details: Generic Name Dose Route Start Last Admin Trade Name Freq PRN Reason Stop Dose Admin Acetaminophen 650 mg 10/13/22 19:53 10/13/22 20:21 Acetaminophen 32 5 Mg Tablet PO 650 mg Q6H PRN Administration FEVER Albuterol Sulfate 2.5 mg 10/22/22 10:33 10/26/22 07:35 Albuterol 2.5 Mg /3 Ml Neb INHALATION 2.5 mg Q6H.RESP PRN Administration SHORTNESS OF EDWIGE TH Amiodarone HCl 200 mg 10/30/22 09:00 11/03/22 08:25 Amiodarone 200 M g Tablet PO 200 mg DAILY SOFIA Administration Amlodipine Besylat e 10 mg 11/01/22 09:15 11/01/22 09:53 Amlodipine 10 Mg Tablet PO Not Given DAILY [facility] Atorvastatin Calci um 20 mg 10/13/22 21:00 10/14/22 20:20 Atorvastatin 40 Mg Tablet PO 20 mg BEDTIME SOFIA Administration Budesonide 0.5 mg 10/08/22 20:00 11/03/22 09:16 Budesonide 0.5 M g/2 Ml Neb INHALATION 0.5 mg BID.RESPIRATORY S CH Administration Folic Acid 1 mg 10/13/22 22:00 10/14/22 22:01 Folic Acid 1 Mg Tablet PO 1 mg DAILY@2200 SOFIA Administration Heparin Sodium (Po rcine) 5,000 unit 10/26/22 10:30 11/03/22 10:07 Heparin 5,000 Un it/Ml Inj 1 Ml SUBCUT 5,000 unit Q8H SOFIA Administration Tranexamic Acid 1, 000 mg/ 110 mls @ 330 mls /hr 11/01/22 14:23 11/02/22 07:28 Sodium Chloride IV Infused Q30M PRN Infusion BLEEDING Propofol 1,000 mg in 100 m ls @ 0 mls/hr 11/01/22 16:30 11/03/22 08:24 Diprivan IV 30 mcg/kg/min .Q0M SOFIA 26.18 mls/hr Administration Protocol Per Protocol Meropenem 500 mg/ Sodium 50 mls @ 100 mls/ hr 11/01/22 17:00 11/03/22 08:57 Chloride IV Infused Q8H SOFIA Infusion Protocol Fentanyl 1,000 mcg / Sodium 100 mls @ 0 mls/h r 11/01/22 17:00 11/03/22 10:03 Chloride IV 75 mcg/hr .Q0M SOFIA 7.5 mls/hr Administration Protocol Per Protocol Norepinephrine Bit artrate 4 mg 254 mls @ 0 mls/h r 11/01/22 18:00 11/03/22 06:22 / Dextrose IV 0 mcg/min .Q0M SOFIA 0 mls/hr Titration Protocol Per Protocol Levalbuterol HCl 0.63 mg 10/26/22 20:00 11/03/22 09:17 Levalbuterol 0.6 3 Mg/3 Ml Neb INHALATION 0.63 mg Q6H.RESP SOFIA Administration Metoclopramide HCl 5 mg 10/27/22 08:01 10/29/22 20:02 Metoclopramide 5 Mg/Ml Sdv 2 Ml IVP 5 mg Q6H PRN Administration NAUSEA AND VOMITI NG Metoprolol Tartrat e 25 mg 10/29/22 21:00 11/02/22 21:31 Metoprolol Tartr ate 25 Mg Tablet PO 25 mg BID@0900,2100 SOFIA Administration Nystatin 1 applic 10/26/22 21:00 11/03/22 08:27 Nystatin Powder 15 Gm Btl TOPICAL 1 applic 0900,2100 SOFIA Administration Ondansetron HCl 4 mg 10/08/22 13:09 10/27/22 04:23 Ondansetron 2 Mg /Ml Sdv 2 Ml IVP 4 mg Q6H PRN Administration NAUSEA AND VOMITI NG Pantoprazole Sodiu m 40 mg 11/03/22 09:00 11/03/22 08:24 Pantoprazole 40 Mg Sdv IVP 40 mg DAILY SOFIA Administration Simethicone 40 mg 10/14/22 00:41 10/30/22 21:23 Simethicone 80 M g Chew PO 40 mg TID PRN Administration HICCUPS Trazodone HCl 300 mg 10/13/22 21:00 11/02/22 21:08 Trazodone 150 Mg Tablet PO Not Given BEDTIME SOFIA Vancomycin HCl 125 mg 10/26/22 17:00 11/03/22 08:26 Vancomycin 1,000 Mg Oral Jovana (Btl) PO 125 mg QID SOFIA Administration Vitals/I&O/Wt Last Vital Signs Temp 98.8 F 11/03/22 07:30 Pulse 86 11/03/22 10:00 Resp 16 11/03/22 09:25 BP 94/49 11/03/22 10:00 Pulse Ox 97 11/03/22 10:00 O2 Del Method 11/03/22 09:25 O2 Flow Rate 4 11/01/22 14:26 FiO2 35 11/03/22 10:00 11/02/22 11/03/22 11/03/22 22:59 06:59 14:59 Intake Total 470 / 3254.517 1766.367 / 5020.884 293.125 / 293.125 Output Total 50 / 855 1000 / 1855 125 / 125 Balance 420 / 2399.517 766.367 / 3165.884 168.125 / 168.125 Weight last 48 hrs Weight 151 kg Weight 150 kg Physical Exam Narrative: Intubated sedated on mechanical ventilation. Const: COMMON NORMALS: patient oriented x3 HENMT: COMMON NORMALS: normocephalic and atraumatic HEAD & SCALP: normocephalic and atraumatic Resp: COMMON NORMALS: clear to auscultation bilaterally EFFORT & INSPECTION: Yes symmetric chest movement AUSCULTATION: clear to auscultation bilaterally OTHER: Diminished air entry bilaterally Cardio: COMMON NORMALS: regular rate, regular rhythm, S1 normal heart sound present, S2 normal heart sound present, No gallops present (Cardio), No murmurs present (Cardio), No rub (Cardio) and Peripheral pulses 2+ throughout RATE: regular rate RHYTHM: regular rhythm HEART SOUNDS: S1 normal heart sound present and S2 normal heart sound present PERIPHERAL PULSES: Peripheral pulses 2+ throughout GI: COMMON NORMALS: Normal to inspection, nondistended, normoactive bowel sounds present, Soft to palpation, non-tender, No hepatosplenomegaly present and no masses AUSCULTATION: Yes normoactive bowel sounds PALPATION: Yes Soft to palpation and Yes No hepatosplenomegaly present RECTAL EXAM: Yes deferred OTHER: Wound VAC in place, ostomy site clean. Extremity: COMMON NORMALS: no clubbing, cyanosis or edema and no pedal edema Neuro: COMMON NORMALS: patient oriented x3 Urinary Catheter Management: Orellana: Cath Placed During This Visit: yes, but has since been removed by the nurse Reason for Continuing Indwelling Catheter: Accurate Measurement of Urinary Output in Critically Ill Patients Urinary Catheter Date of Insertion: 10/15/22 Urinary Catheter Time of Insertion: 13:50 Date Urinary Catheter Removed: 10/10/22 Time Urinary Catheter Discontinued: 17:45 Data 11/03/22 08:10 11/03/22 08:10 Micro: Microbiology 11/01/22 17:00 Gram Stain - Final Sputum - Endotracheal Tube Aspirate Sputum Culture - Preliminary A&P Assessment and plan (1) Ventilator dependent: Most likely secondary to postoperative status in setting of obstructive sleep apnea, COPD. Difficult to extubate given postoperative status with abdominal wound VAC. Baseline sleep apnea requiring CPAP up to pressure of 12. Noncompliant at home. Extubated to heated high flow on 10/26. Oxygen supplementation keeping saturation over 88%. Continue with DuoNebs every 6 hour, budesonide twice daily. Incentive spirometry, flutter valve. 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 Status post resection of colonic anastomosis and end ileostomy formation for wound dehiscence. Wound VAC, drains in place. Unfortunately patient started passing large blood clot from the colostomy site: on 11/01 CT abdomen and pelvis ( 11/01) : Showed: Apparent increased size of 6.7 x 6.1 x 2.4 cm lesion measuring 23 Hounsfield units in the region of the right rectus muscle, medial and inferior to the right lower quadrant colostomy suggesting possible complex fluid collection with or without infection. S/P Colostomy revision with control of bleeding: S/p cauterization of rectus sheath bleeding site S/P 6 units PRBCs , 3 units of FFP , tranexamic acid, 1 bag platelet. (3) Septic shock: Patient met sepsis criteria: Has elevated white cell count, endorgan dysfunction in the presence of TALON, fever, likely intra-abdominal infection as a source, with possible pneumonia. Now resolved. Keep mean artery pressure 65, saturation over 90%. Vancomycin stopped as MRSA negative. Last day of meropenem on 10/31. Course extended given possibility of abscess/collection intra-abdominally. Continue with IV fluids. (4) C. difficile colitis: Positive on 10/26. Start on oral vancomycin 125 mg 4 times daily. Monitor colostomy output. (5) Intra-abdominal collection: Seen on abdominal CT scan from 10/25. Query intra-abdominal abscess. Drain present. We will continue to monitor. Continue with extended course of IV antibiotics. Infectious disease consulted (6) TALON (acute kidney injury): Baseline serum creatinine usually around 1 Monitor BMP Avoid nephrotoxic's Monitor intake output charting (7) Obstructive sleep apnea: Not currently using cpap at home due to malfunction of machine. ABG with evidence of hypercapnic hypoxic respiratory failure. Known restrictive lung disease and asbestosis. At baseline uses CPAP at home, unable to utilize BiPAP given abdominal surgery. Currently saturating 93% on supplemental O2, does drop down to 70% on room air. Does not typically use oxygen at home. Continue to use DuoNeb and budesonide scheduled inhalation. No current indication for steroid use. Suspect that patient may have underlying baseline hypoxia and will likely require supplemental O2 at discharge. (8) Hypernatremia: Continue D5 water at 75 cc an hour Monitor serum sodium (9) Hypertension: Chronic diagnosis, usually on bisoprolol-HCTZ and lisinopril. Goal blood pressure less than 140/90 mmHg with mean over 65. Restart home dose of metoprolol 50 mg twice daily. (10) Atrial fibrillation with rapid ventricular response: In a patient with known chronic atrial fibrillation, on bisoprolol in combination with HCTZ as only rate controlling medication at home. Currently rate controlled with amiodarone 400 mg twice daily. Takes Xarelto at home for anticoagulation. Off anticoagulation as per request from surgical team. Started on prophylaxis Heparin 5000 every 8 hourly. 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 Has myocardial perfusion study on 10/05/22. Ischemic work-up was negative. Currently troponin series additionally negative. No acute ST-T wave changes to suggest acute coronary syndrome. (11) Anemia: Acute blood loss anemia Has received 7 units of PRBC transfusion so far Monitor H&H (12) Hyperkalemia: Now resolved (13) Restrictive lung disease due to kyphoscoliosis: Aware (14) COVID-19: Had COVID in early 08/2022 and was hospitalized in [place] briefly needing oxygen. (15) Pleural effusion: Moderate right-sided pleural effusion: Seen on CT chest Ultrasound chest: Has not shown any significant pocket for thoracentesis Monitor chest x-ray (16) Pneumonia: Hospital acquired Pneumonia: Patient been complaining of coughing. CTA chest has shown: Consolidation in the right upper lobe, right middle lobe, and right lower lobe. Patient has been restarted on meropenem as well as vancomycin. Plan CODE STATUS: Full code DVT prophylaxis: On SCDs Attestations Medical Necessity Statement*: per primary Time Spent in Patient Care: Greater than 35 minutes Critical Care Time: The high probability of a clinically significant, sudden or life threatening deterioration of the patient's [] system(s) required my full and direct attention, intervention and personal management. The critical care time is as shown. This time is in addition to time spent performing any reported procedures but includes the following: [x] Data and vital sign review and interpretation [x] Patient assessment, examination and intervention [x] Documentation [x] Medication orders and management Critical Care Time (min): 30 Coding Level of Care Code Acute Code for Chg Fwd Diagnoses Ventilator dependent Z99.11 Status post left hemicolectomy Z90.49 Septic shock A41.9; R65.21 C. difficile colitis A04.72 Intra-abdominal collection R18.8 TALON (acute kidney injury) N17.9 Obstructive sleep apnea G47.33 Hypernatremia E87.0 Hypertension I10 Atrial fibrillation with rapid ventricular response I48.91 Anemia D64.9 Hyperkalemia E87.5 Restrictive lung disease due to kyphoscoliosis J98.4; M41.9 COVID-19 U07.1 Pleural effusion J90 Pneumonia J18.9
[2022-11-03] MEDS: propofol 1,000 MG/100 ML INJ 30.55 MG IV (21:17)
[2022-11-04] VITALS (58 sets, daily range): BP systolic 97–141; BP diastolic 47–74; PULSE 64–86; RESP 15–17; TEMP 36.6–37.2; O2SAT 91–100
[2022-11-04] MEDS: meropenem 500 MG in sodium chloride 0.9% (plus) 50 ML 100 MG IV ×3 (00:36→17:06)
[2022-11-04] MEDS: propofol 1,000 MG/100 ML INJ 30.55 MG IV ×3 (00:36→06:48)
[2022-11-04] MEDS: heparin 5,000 unit/mL INJ 1 mL 5000 UNIT SUBCUT ×3 (01:44→17:30)
[2022-11-04] MEDS: levalbuterol 0.63 mg/3 mL Neb INHALATION ×4 (03:41→19:56)
[2022-11-04 04:03] LABS: ABG PCO2 40.2 mmHg (35-45); ABG PH Result 7.49 (7.35-7.45); Alveolar-Arterial Oxygen Gradi 14.8 mmHg (5-10); Blood Gas Allen Test Pos; Blood Gas Sample Site Radial, right; Blood Gas Sample Type Arterial; HCO3 ABG 30.4 mmol/L (22-26); HGB O2 Sat 96.2 % (95-100); Ionized Calcium Level - ABG 1.1 mmol/L (1.1-1.4); Methemoglobin 0.7 % (0.4-1.5); Oxygen Device VENT; Oxygen Saturation ABG 98.9; PO2 ABG 85.3 mmHg (80.0-100.0); Potassium Level - ABG 3.5 mmol/L (3.5-5.0); Total Hemoglobin < 4.5 g/dL (14-18)
[2022-11-04 04:05] LABS: Basophils % 0.5 %; Eosinophils # 0.4 10^3/uL (0.0-0.8); Eosinophils % 4.9 %; Hematocrit 26.6 % (42.0-52.0); Hemoglobin 8.2 g/dL (11.7-16.6); Lymphocytes # 1.2 10^3/uL (0.8-4.8); Lymphocytes % 16.5 %; Mean Corpuscular HGB Conc 30.8 g/dL (30.0-36.0); Mean Corpuscular Hemoglobin 30.1 pg (28.0-34.0); Mean Corpuscular Volume 97.8 fl (80-94); Mean Platelet Volume 10.5 fL (7.4-10.4); Monocytes # 0.7 10^3/uL (0.2-0.9); Monocytes % 9.3 %; Neutrophils # 5.09 10^3/uL (1.8-7.7); Neutrophils % 67.7 %; Nucleated Red Blood Cells % 0 %; Platelet Count 211 10^3/cmm (130-400); Red Blood Count 2.72 10^6/uL (4.1-5.3); Red Cell Distribution Width 17.9 % (12.1-15.1); White Blood Count 7.5 10^3/uL (4.0-10.0)
[2022-11-04 04:16] LABS: INR 1.18 (0.8-1.2)
[2022-11-04 04:17] LABS: Partial Thromboplastin Time 33.3 SECONDS (23.9-36.7)
[2022-11-04 04:19] LABS: Fibrinogen 427 mg/dL (174-498)
[2022-11-04 04:20] LABS: Alanine Aminotransferase 25 U/L (0-41); Albumin Level 2.4 g/dL (3.5-5.2); Alkaline Phosphatase 105 U/L (40-130); Anion Gap 9.9 (5-19); Aspartate Amino Transferase 25 U/L (0-40); Blood Urea Nitrogen 24 mg/dL (8-23); Calcium 8.5 mg/dL (8.5-10.5); Carbon Dioxide 32 mmol/L (22-29); Chloride 104 mmol/L (98-107); Globulin 2.9 g/dL (1.3-4.6); Glomerular Filtration Rate 50.5 mL/min (90-130); Glucose 126 mg/dL (65-115); Osmolality Calculated 300 mOsm/kg (285-295); Phosphorus 3.4 mg/dL (2.5-4.5); Potassium 3.9 mmol/L (3.5-5.1); Sodium 142 mmol/L (136-145); Total Bilirubin 0.3 mg/dL (0.15-1.2); Total Protein 5.3 g/dL (6.6-8.7)
--- NOTE | 2022-11-04 07:44 | XRR_ITS ---
PROCEDURE INFORMATION: Exam: XR Chest Exam date and time: 11/04/2022 10:07 AM Age: 67 years old Clinical indication: Shortness of breath; Additional info: SOB TECHNIQUE: Imaging protocol: Radiologic exam of the chest. Views: 1 view. COMPARISON: 1. XR chest 11/01/2022. 2. CTA chest 11/01/2022. FINDINGS: Limitations: Image quality is limited by AP portable technique. Tubes, catheters and devices: A gastric tube is in good position. The endotracheal tube is obscured by the spinal hardware. Lungs: Patchy airspace disease at both lung bases, left side worse than right, is consistent with atelectasis and/or pneumonia. Mild pulmonary vascular prominence. Pleural spaces: Bilateral pleural effusions, right greater than left. Heart/Mediastinum: Borderline heart size. Bones/joints: Lower thoracic levoscoliosis. Bilateral Marr rods with laminar hooks extend superiorly to the T3 level. Soft tissues: Unremarkable. XR/XR chest 1V portable [id number] IMPRESSION: 1. Bilateral pleural effusions, right greater than left. 2. Patchy airspace disease at both lung bases, left side worse than right, is consistent with atelectasis and/or pneumonia. 3. Mild pulmonary vascular prominence.
[2022-11-04] MEDS: budesonide 0.5 mg/2 mL Neb INHALATION ×2 (08:03→19:56)
[2022-11-04 08:04] LABS: Vancomycin Trough 17.5 ug/mL (10-15)
[2022-11-04] MEDS: pantoprazole 40 mg SDV IVP (08:55)
[2022-11-04] MEDS: amiodarone 200 mg Tablet PO (08:56)
[2022-11-04] MEDS: nystatin powder 15 gm Btl 1 APPLIC TOPICAL ×2 (08:58→20:57)
--- NOTE | 2022-11-04 09:30 | PC.NURSE ---
more awake today and restless repositioned appears very uncomfortable increased sedation at this time and pain medication
[2022-11-04] MEDS: propofol 1,000 MG/100 ML INJ 34.91 MG IV ×5 (09:50→22:24)
--- NOTE | 2022-11-04 10:06 | PC.SOCIAL ---
IMM not given Pt is intubated at this time. IMM not updated. Pt is not expected to discharge in the next 24-48hrs.
--- NOTE | 2022-11-04 12:16 | P.PN_ITS ---
Subjective Subjective: Patient is currently intubated sedated on mechanical ventilation. X-ray chest done today suggestive of mild mild pulmonary vascular congestion, patient is also currently roughly 10 L positive, will give him small dose of Lasix 20 IV today. H&H stable, serum creatinine appears to be peaking. Vanco trough result appreciated. Ventilator setting has been reviewed, telemetry reviewed. Medications: Reviewed: Yes Medication Review Details: Generic Name Dose Route Start Last Admin Trade Name Freq PRN Reason Stop Dose Admin Acetaminophen 650 mg 10/13/22 19:53 10/13/22 20:21 Acetaminophen 32 5 Mg Tablet PO 650 mg Q6H PRN Administration FEVER Albuterol Sulfate 2.5 mg 10/22/22 10:33 10/26/22 07:35 Albuterol 2.5 Mg /3 Ml Neb INHALATION 2.5 mg Q6H.RESP PRN Administration SHORTNESS OF EDWIGE TH Amiodarone HCl 200 mg 10/30/22 09:00 11/04/22 08:56 Amiodarone 200 M g Tablet PO 200 mg DAILY SOFIA Administration Amlodipine Besylat e 10 mg 11/01/22 09:15 11/01/22 09:53 Amlodipine 10 Mg Tablet PO Not Given DAILY SOFIA Atorvastatin Calci um 20 mg 10/13/22 21:00 10/14/22 20:20 Atorvastatin 40 Mg Tablet PO 20 mg BEDTIME SOFIA Administration Budesonide 0.5 mg 10/08/22 20:00 11/04/22 08:03 Budesonide 0.5 M g/2 Ml Neb INHALATION 0.5 mg BID.RESPIRATORY S CH Administration Folic Acid 1 mg 10/13/22 22:00 10/14/22 22:01 Folic Acid 1 Mg Tablet PO 1 mg DAILY@2200 SOFIA Administration Heparin Sodium (Po rcine) 5,000 unit 10/26/22 10:30 11/04/22 01:44 Heparin 5,000 Un it/Ml Inj 1 Ml SUBCUT 5,000 unit Q8H SOFIA Administration Tranexamic Acid 1, 000 mg/ 110 mls @ 330 mls /hr 11/01/22 14:23 11/02/22 07:28 Sodium Chloride IV Infused Q30M PRN Infusion BLEEDING Propofol 1,000 mg in 100 m ls @ 0 mls/hr 11/01/22 16:30 11/04/22 09:50 Diprivan IV 40 mcg/kg/min .Q0M SOFIA 34.91 mls/hr Administration Protocol Per Protocol Meropenem 500 mg/ Sodium 50 mls @ 100 mls/ hr 11/01/22 17:00 11/04/22 09:25 Chloride IV Infused Q8H SOFIA Infusion Protocol Fentanyl 1,000 mcg / Sodium 100 mls @ 0 mls/h r 11/01/22 17:00 11/04/22 09:25 Chloride IV 100 mcg/hr .Q0M SOFIA 10 mls/hr Titration Protocol Per Protocol Norepinephrine Bit artrate 4 mg 254 mls @ 0 mls/h r 11/01/22 18:00 11/03/22 06:22 / Dextrose IV 0 mcg/min .Q0M SOFIA 0 mls/hr Titration Protocol Per Protocol Vancomycin HCl 2,0 00 mg/ 500 mls @ 250 mls /hr 11/04/22 08:00 11/04/22 11:05 Sodium Chloride IV Infused Q24H SOFIA Infusion Levalbuterol HCl 0.63 mg 10/26/22 20:00 11/04/22 08:03 Levalbuterol 0.6 3 Mg/3 Ml Neb INHALATION 0.63 mg Q6H.RESP SOFIA Administration Metoclopramide HCl 5 mg 10/27/22 08:01 10/29/22 20:02 Metoclopramide 5 Mg/Ml Sdv 2 Ml IVP 5 mg Q6H PRN Administration NAUSEA AND VOMITI NG Metoprolol Tartrat e 25 mg 10/29/22 21:00 11/02/22 21:31 Metoprolol Tartr ate 25 Mg Tablet PO 25 mg BID@0900,2100 SOFIA Administration Nystatin 1 applic 10/26/22 21:00 11/04/22 08:58 Nystatin Powder 15 Gm Btl TOPICAL 1 applic 0900,2100 SOFIA Administration Ondansetron HCl 4 mg 10/08/22 13:09 10/27/22 04:23 Ondansetron 2 Mg /Ml Sdv 2 Ml IVP 4 mg Q6H PRN Administration NAUSEA AND VOMITI NG Pantoprazole Sodiu m 40 mg 11/03/22 09:00 11/04/22 08:55 Pantoprazole 40 Mg Sdv IVP 40 mg DAILY SOFIA Administration Simethicone 40 mg 10/14/22 00:41 10/30/22 21:23 Simethicone 80 M g Chew PO 40 mg TID PRN Administration HICCUPS Trazodone HCl 300 mg 10/13/22 21:00 11/03/22 21:24 Trazodone 150 Mg Tablet PO Not Given BEDTIME SOFIA Vancomycin HCl 125 mg 10/26/22 17:00 11/04/22 08:57 Vancomycin 1,000 Mg Oral Jovana (Btl) PO 125 mg QID SOFIA Administration Vitals/I&O/Wt Last Vital Signs Temp 98.8 F 11/04/22 08:00 Pulse 85 11/04/22 10:00 Resp 15 11/04/22 10:44 BP 105/60 11/04/22 10:00 Pulse Ox 98 11/04/22 10:44 O2 Del Method 11/04/22 08:00 O2 Flow Rate 4 11/01/22 14:26 FiO2 30 11/04/22 10:44 11/03/22 11/04/22 11/04/22 22:59 06:59 14:59 Intake Total 250.000 / 693.125 437.577 / 1130.702 716.860 / 716.860 Output Total 250 / 1175 1050 / 2225 Balance 0 / -481.875 -612.423 / -1094.298 716.860 / 716.860 Weight last 48 hrs Weight 153.5 kg Weight 151 kg Physical Exam Narrative: Intubated sedated on mechanical ventilation. Const: COMMON NORMALS: patient oriented x3 HENMT: COMMON NORMALS: normocephalic and atraumatic HEAD & SCALP: normocephalic and atraumatic Resp: COMMON NORMALS: clear to auscultation bilaterally EFFORT & INSPECTION: Yes symmetric chest movement AUSCULTATION: clear to auscultation bilaterally OTHER: Diminished air entry bilaterally Cardio: COMMON NORMALS: regular rate, regular rhythm, S1 normal heart sound present, S2 normal heart sound present, No gallops present (Cardio), No murmurs present (Cardio), No rub (Cardio) and Peripheral pulses 2+ throughout RATE: regular rate RHYTHM: regular rhythm HEART SOUNDS: S1 normal heart sound present and S2 normal heart sound present PERIPHERAL PULSES: Peripheral pulses 2+ throughout GI: COMMON NORMALS: Normal to inspection, nondistended, normoactive bowel sounds present, Soft to palpation, non-tender, No hepatosplenomegaly present and no masses AUSCULTATION: Yes normoactive bowel sounds PALPATION: Yes Soft to palpation and Yes No hepatosplenomegaly present RECTAL EXAM: Yes deferred OTHER: Wound VAC in place, ostomy site clean. Extremity: COMMON NORMALS: no clubbing, cyanosis or edema and no pedal edema Neuro: COMMON NORMALS: patient oriented x3 Urinary Catheter Management: Orellana: Cath Placed During This Visit: yes, but has since been removed by the nurse Reason for Continuing Indwelling Catheter: Accurate Measurement of Urinary Output in Critically Ill Patients Urinary Catheter Date of Insertion: 10/15/22 Urinary Catheter Time of Insertion: 13:50 Date Urinary Catheter Removed: 10/10/22 Time Urinary Catheter Discontinued: 17:45 Data 11/04/22 03:09 11/04/22 03:09 Micro: Microbiology 11/01/22 17:00 Gram Stain - Final Sputum - Endotracheal Tube Aspirate Sputum Culture - Final A&P Assessment and plan (1) Ventilator dependent: Most likely secondary to postoperative status in setting of obstructive sleep apnea, COPD. Difficult to extubate given postoperative status with abdominal wound VAC. Baseline sleep apnea requiring CPAP up to pressure of 12. Noncompliant at home. Extubated to heated high flow on 10/26. Oxygen supplementation keeping saturation over 88%. Continue with DuoNebs every 6 hour, budesonide twice daily. Incentive spirometry, flutter valve. 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 Status post resection of colonic anastomosis and end ileostomy formation for wou nd dehiscence. Wound VAC, drains in place. Unfortunately patient started passing large blood clot from the colostomy site: on 11/01 CT abdomen and pelvis ( 11/01) : Showed: Apparent increased size of 6.7 x 6.1 x 2.4 cm lesion measuring 23 Hounsfield units in the region of the right rectus muscle, medial and inferior to the right lower quadrant colostomy suggesting possible complex fluid col lection with or without infection. S/P Colostomy revision with control of bleeding: S/p cauterization of rectus sheath bleeding site S/P 6 units PRBCs , 3 units of FFP , tranexamic acid, 1 bag platelet. (3) Septic shock: Patient met sepsis criteria: Has elevated white cell count, endorgan dysfunction in the presence of TALON, fever, likely intra-abdominal infection as a source, with possible pneumonia. Now resolved. Keep mean artery pressure 65, saturation over 90%. Vancomycin stopped as MRSA negative. Last day of meropenem on 10/31. Course extended given possibility of abscess/collection intra-abdominally. Continue with IV fluids. (4) C. difficile colitis: Positive on 10/26. Start on oral vancomycin 125 mg 4 times daily. Monitor colostomy output. (5) Intra-abdominal collection: Seen on abdominal CT scan from 10/25. Query intra-abdominal abscess. Drain present. We will continue to monitor. Continue with extended course of IV antibiotics. Infectious disease consulted (6) TALON (acute kidney injury): Baseline serum creatinine usually around 1 Monitor BMP Avoid nephrotoxic's Monitor intake output charting (7) Obstructive sleep apnea: Not currently using cpap at home due to malfunction of machine. ABG with evidence of hypercapnic hypoxic respiratory failure. Known restrictive lung disease and asbestosis. At baseline uses CPAP at home, unable to utilize BiPAP given abdominal surgery. Currently saturating 93% on supplemental O2, does drop down to 70% on room air. Does not typically use oxygen at home. Continue to use DuoNeb and budesonide scheduled inhalation. No current indication for steroid use. Suspect that patient may have underlying baseline hypoxia and will likely require supplemental O2 at discharge. (8) Hypernatremia: Continue D5 water at 75 cc an hour Monitor serum sodium (9) Hypertension: Chronic diagnosis, usually on bisoprolol-HCTZ and lisinopril. Goal blood pressure less than 140/90 mmHg with mean over 65. Restart home dose of metoprolol 50 mg twice daily. (10) Atrial fibrillation with rapid ventricular response: In a patient with known chronic atrial fibrillation, on bisoprolol in combination with HCTZ as only rate controlling medication at home. Currently rate controlled with amiodarone 400 mg twice daily. Takes Xarelto at home for anticoagulation. Off anticoagulation as per request from surgical team. Started on prophylaxis Heparin 5000 every 8 hourly. 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 Has myocardial perfusion study on 10/05/22. Ischemic work-up was negative. Currently troponin series additionally negative. No acute ST-T wave changes to suggest acute coronary syndrome. (11) Anemia: Acute blood loss anemia Has received 7 units of PRBC transfusion so far Monitor H&H (12) Hyperkalemia: Now resolved (13) Restrictive lung disease due to kyphoscoliosis: Aware (14) COVID-19: Had COVID in early 08/2022 and was hospitalized in [place] briefly needing oxygen. (15) Pleural effusion: Moderate right-sided pleural effusion: Seen on CT chest Ultrasound chest: Has not shown any significant pocket for thoracentesis Monitor chest x-ray (16) Pneumonia: Hospital acquired Pneumonia: Patient been complaining of coughing. CTA chest has shown: Consolidation in the right upper lobe, right middle lobe, and right lower lobe. Patient has been restarted on meropenem as well as vancomycin. Plan CODE STATUS: Full code DVT prophylaxis: On SCDs Attestations Medical Necessity Statement*: Needs to be in hospital for management of sepsis. Time Spent in Patient Care: Greater than 35 minutes Critical Care Time: The high probability of a clinically significant, sudden or life threatening deterioration of the patient's [] system(s) required my full and direct attention, intervention and personal management. The critical care time is as shown. This time is in addition to time spent performing any reported procedures but includes the following: [x] Data and vital sign review and interpretation [x] Patient assessment, examination and intervention [x] Documentation [x] Medication orders and management Critical Care Time (min): 35 Coding Level of Care Code Acute Code for Chg Fwd Diagnoses Ventilator dependent Z99.11 Status post left hemicolectomy Z90.49 Septic shock A41.9; R65.21 C. difficile colitis A04.72 Intra-abdominal collection R18.8 TALON (acute kidney injury) N17.9 Obstructive sleep apnea G47.33 Hypernatremia E87.0 Hypertension I10 Atrial fibrillation with rapid ventricular response I48.91 Anemia D64.9 Hyperkalemia E87.5 Restrictive lung disease due to kyphoscoliosis J98.4; M41.9 COVID-19 U07.1 Pleural effusion J90 Pneumonia J18.9
[2022-11-04] MEDS: FUROsemide 10 mg/mL SDV 2mL 20 MG IVP (12:34)
[2022-11-04] MEDS: albumin 37.5 GM/150 ML VIAL IV (12:35)
--- NOTE | 2022-11-04 12:53 | PM.PN ---
Subjective Subjective: This patient is hemodynamically stable. The patient is afebrile The patient remains on mechanical ventilation. Medications: Reviewed: Yes Vitals/I&O/Wt Last Vital Signs Temp 98.8 F 11/04/22 08:00 Pulse 85 11/04/22 10:00 Resp 15 11/04/22 10:44 BP 105/60 11/04/22 10:00 Pulse Ox 98 11/04/22 10:44 O2 Del Method 11/04/22 08:00 O2 Flow Rate 4 11/01/22 14:26 FiO2 30 11/04/22 12:00 11/03/22 11/04/22 11/04/22 22:59 06:59 14:59 Intake Total 250.000 / 693.125 437.577 / 1130.702 842.815 / 842.815 Output Total 250 / 1175 1050 / 2225 Balance 0 / -481.875 -612.423 / -1094.298 842.815 / 842.815 Weight last 48 hrs Weight 338 lb 6.553 oz Weight 332 lb 14.368 oz Physical Exam Narrative: Generally: No acute distress Lungs: Clear to auscultation. They are not suctioning much sputum out of the patient Heart: Is regular rate and rhythm without murmurs. The patient's blood pressure is adequate. Patient has a good mean arterial pressure. Abdomen: Change the wound VAC at the bedside. The wound is a little bit on the dry side. There is some granulation tissue. There is some separation at the lower border of the wound. Otherwise the wound continues to heal well. There is no signs of infection. Extremities: There is no edema. Neurologic: The patient sedated. When the patient's sedation is turned off, the patient answers questions appropriately by nodding his head. Urinary Catheter Management: Orellana: Cath Placed During This Visit: yes, but has since been removed by the nurse Reason for Continuing Indwelling Catheter: Accurate Measurement of Urinary Output in Critically Ill Patients Urinary Catheter Date of Insertion: 10/15/22 Urinary Catheter Time of Insertion: 13:50 Date Urinary Catheter Removed: 10/10/22 Time Urinary Catheter Discontinued: 17:45 Data 11/04/22 03:09 11/04/22 03:09 Micro: Microbiology 11/01/22 17:00 Gram Stain - Final Sputum - Endotracheal Tube Aspirate Sputum Culture - Final Attestation for Other Data: I personally reviewed and interpreted the following: (All labs have been reviewed) A&P Assessment and plan (1) Intra-abdominal collection: This patient appears to be slowly improving. We will continue current therapy. (2) C. difficile colitis: We will continue current therapy. (3) Status post left hemicolectomy: The patient's wound VAC was changed today. Our plan is to continue changing the wound VAC every 2 days. The patient needs adequate nutrition. The patient's tube feedings are at goal. We will continue current therapy. Attestations Medical Necessity Statement*: Continue ICU care Coding Level of Care Code 79442 Medical Decision Making High Complexity Diagnoses Intra-abdominal collection R18.8 C. difficile colitis A04.72 Status post left hemicolectomy Z90.49
--- NOTE | 2022-11-04 13:12 | PC.NURSE ---
reposition with assist of 3 turn to side and replaced optifoams on coccyx and buttock.. yumiko care done chux replaced area with inner core discolored and nonblanchable and surrounding area discolored sloughing noted of surrounding areas .. noted mid abdomen area appears to be slightly gaping more Dr Ballesteros here and wound vac dressing removed he observed replaced with new dressing and also canister .. good seal on dressing
--- NOTE | 2022-11-04 17:52 | PC.NURSE ---
repositioned oral care done has had increased in u/o after albumin and lasix . responds to question appropriatly
[2022-11-04] MEDS: trazodone 150 mg Tablet 300 MG PO (20:53)
[2022-11-05] VITALS (61 sets, daily range): BP systolic 108–148; BP diastolic 56–82; PULSE 64–87; RESP 15–17; TEMP 36.9–37.2; O2SAT 91–100; BMI 41.1
[2022-11-05] MEDS: meropenem 500 MG in sodium chloride 0.9% (plus) 50 ML 100 MG IV ×3 (01:12→16:55)
[2022-11-05] MEDS: heparin 5,000 unit/mL INJ 1 mL 5000 UNIT SUBCUT ×3 (02:05→16:56)
[2022-11-05 02:54] LABS: ABG PCO2 46.9 mmHg (35-45); ABG PH Result 7.45 (7.35-7.45); Alveolar-Arterial Oxygen Gradi 12.2 mmHg (5-10); Arterial Blood Gas Hematocrit 24.7 % (42-52); Blood Gas Allen Test Pos; Blood Gas Sample Site Radial, right; Blood Gas Sample Type Arterial; Carboxyhemoglobin 1.9 %THgb (0.4-20.1); HCO3 ABG 32.8 mmol/L (22-26); HGB O2 Sat 91.7 % (95-100); Ionized Calcium Level - ABG 1.2 mmol/L (1.1-1.4); Methemoglobin 0.5 % (0.4-1.5); Oxygen Device VENT; Oxygen Saturation ABG 93.9; Potassium Level - ABG 4.1 mmol/L (3.5-5.0); Total Hemoglobin 8.1 g/dL (14-18)
[2022-11-05] MEDS: levalbuterol 0.63 mg/3 mL Neb INHALATION ×4 (03:07→20:18)
[2022-11-05 03:23] LABS: Alanine Aminotransferase 22 U/L (0-41); Albumin Level 2.8 g/dL (3.5-5.2); Alkaline Phosphatase 97 U/L (40-130); Anion Gap 10.3 (5-19); Aspartate Amino Transferase 22 U/L (0-40); Blood Urea Nitrogen 20 mg/dL (8-23); Calcium 8.3 mg/dL (8.5-10.5); Carbon Dioxide 30 mmol/L (22-29); Chloride 103 mmol/L (98-107); Globulin 2.8 g/dL (1.3-4.6); Glomerular Filtration Rate 55.1 mL/min (90-130); Glucose 107 mg/dL (65-115); Osmolality Calculated 291 mOsm/kg (285-295); Potassium 4.3 mmol/L (3.5-5.1); Sodium 139 mmol/L (136-145); Total Bilirubin 0.3 mg/dL (0.15-1.2); Total Protein 5.6 g/dL (6.6-8.7)
[2022-11-05 03:57] LABS: Basophils % 0.4 %; Eosinophils # 0.4 10^3/uL (0.0-0.8); Eosinophils % 5.5 %; Hematocrit 26.3 % (42.0-52.0); Hemoglobin 7.8 g/dL (11.7-16.6); Lymphocytes # 1.2 10^3/uL (0.8-4.8); Lymphocytes % 17.6 %; Mean Corpuscular HGB Conc 29.7 g/dL (30.0-36.0); Mean Corpuscular Hemoglobin 29.2 pg (28.0-34.0); Mean Corpuscular Volume 98.5 fl (80-94); Mean Platelet Volume 10.7 fL (7.4-10.4); Monocytes # 0.8 10^3/uL (0.2-0.9); Monocytes % 11.4 %; Neutrophils # 4.53 10^3/uL (1.8-7.7); Neutrophils % 64.4 %; Nucleated Red Blood Cells % 0 %; Platelet Count 199 10^3/cmm (130-400); Red Blood Count 2.67 10^6/uL (4.1-5.3); Red Cell Distribution Width 17.3 % (12.1-15.1)
[2022-11-05] MEDS: propofol 1,000 MG/100 ML INJ 26.18 MG IV ×4 (05:44→15:25)
[2022-11-05] MEDS: budesonide 0.5 mg/2 mL Neb INHALATION ×2 (08:12→20:18)
--- NOTE | 2022-11-05 08:18 | P.PN_ITS ---
Subjective Subjective: Hospital course, labs appreciated. On examination patient seen on mechanical ventilation with propofol and fentanyl. Has remained hemodynamically stable and afebrile. Documented urine output around 3 L in last 24 hours. Telemetry reviewed. Currently on mechanical ventilation with FiO2 30%, tidal volume of 500. Vitals/I&O/Wt Last Vital Signs Temp 98.4 F 11/05/22 07:41 Pulse 80 11/05/22 07:55 Resp 15 11/05/22 07:55 BP 130/67 11/05/22 07:00 Pulse Ox 97 11/05/22 07:55 O2 Del Method 11/05/22 07:55 O2 Flow Rate 4 11/01/22 14:26 FiO2 30 11/05/22 07:55 11/04/22 11/05/22 11/05/22 22:59 06:59 14:59 Intake Total 1724.333 / 2567.148 1155.667 / 3722.815 Output Total 1200 / 2000 1350 / 3350 0 / 0 Balance 524.333 / 567.148 -194.333 / 372.815 0 / 0 Weight last 48 hrs Weight 153.5 kg Weight 153.5 kg Physical Exam Narrative: General: No acute distress, extubated, weak, AO x3, following commands, slightly confused HEENT: PERRLA, pupils bilaterally equal and reactive Chest: Normal vesicular breath sounds, no added sounds, equal good air entry bilaterally CVS: S1-S2 regular, no murmurs, no tachycardia, no gallops, no rubs Abdomen: Distended, surgical drains present, central surgical scar with wound VAC present. Neuro: Moving all limbs, AOx3, extubated Urinary Catheter Management: Orellana: Cath Placed During This Visit: yes, but has since been removed by the nurse Reason for Continuing Indwelling Catheter: Accurate Measurement of Urinary Output in Critically Ill Patients Urinary Catheter Date of Insertion: 10/15/22 Urinary Catheter Time of Insertion: 13:50 Date Urinary Catheter Removed: 10/10/22 Time Urinary Catheter Discontinued: 17:45 Data 11/05/22 02:48 11/05/22 02:48 A&P Assessment and plan (1) Ventilator dependent: Most likely secondary to postoperative status in setting of obstructive sleep apnea, COPD. Difficult to extubate given postoperative status with abdominal wound VAC. Baseline sleep apnea requiring CPAP up to pressure of 12. Noncompliant at home. Extubated to heated high flow on 10/26. Reintubated on 11/01 for OR. Oxygen supplementation keeping saturation over 88%. Continue with DuoNebs every 6 hour, budesonide twice daily. Depending on clinical picture within the next 2 to 3 days. Sedation vacation. Turn to MMV mode. 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 Status post resection of colonic anastomosis and end ileostomy formation for wound dehiscence on 10/15. Unfortunately patient started passing large blood clot from the colostomy site on 11/01. Taken back to the OR for colostomy revision and control of bleeding. Post cauterization of rectus sheath. S/P 6 units PRBCs , 3 units of FFP , tranexamic acid, 1 bag platelet. Wound care, diet advancement, anticoagulation as per primary team. (3) Pneumonia: Hospital acquired Pneumonia: Patient been complaining of coughing. CTA chest has shown: Consolidation in the right upper lobe, right middle lobe, and right lower lobe. Patient has been restarted on meropenem as well as vancomycin. Repeat sputum culture from 11/01 so far negative. (4) Septic shock: Patient met sepsis criteria: Has elevated white cell count, endorgan dysfunction in the presence of TALON, fever, likely intra-abdominal infection as a source, with possible pneumonia. Now resolved. Keep mean artery pressure 65, saturation over 90%. MRSA negative, sputum culture from 10/25 growing Klebsiella pneumonia and Anabela albicans. Sensitivities noted. Repeat sputum culture sent on 11/01 so far sterile. Send abscess culture today from drain 3. Vancomycin stopped as MRSA negative. Last day of meropenem supposed to be on 10/31. Antibiotics restarted when taken back to the OR. Currently on vancomycin and meropenem again as per creatinine clearance. Most recently restarted on 11/01. Continue with IV fluids. (5) C. difficile colitis: Positive on 10/26. Start on oral vancomycin 125 mg 4 times daily. Monitor colostomy output. (6) Intra-abdominal collection: Seen on abdominal CT scan from 10/25. Send cultures. Most likely patient will need a repeat scan as per drain output. (7) TALON (acute kidney injury): Baseline serum creatinine usually around 1. Creatinine seems to be stabilizing around 1.3-1.4 currently. Monitor BMP Avoid nephrotoxic's Monitor intake output charting (8) Obstructive sleep apnea: Not currently using cpap at home due to malfunction of machine. ABG with evidence of hypercapnic hypoxic respiratory failure. Known restrictive lung disease and asbestosis. At baseline uses CPAP at home, unable to utilize BiPAP given abdominal surgery. Currently saturating 93% on supplemental O2, does drop down to 70% on room air. Does not typically use oxygen at home. Continue to use DuoNeb and budesonide scheduled inhalation. No current indication for steroid use. Suspect that patient may have underlying baseline hypoxia and will likely require supplemental O2 at discharge. (9) Hypernatremia: IV fluids Monitor serum sodium (10) Hypertension: Chronic diagnosis, usually on bisoprolol-HCTZ and lisinopril. Goal blood pressure less than 140/90 mmHg with mean over 65. Currently all antihypertensives on hold. Will restart aspirin blood pressures goals. (11) Atrial fibrillation with rapid ventricular response: In a patient with known chronic atrial fibrillation, on bisoprolol in combination with HCTZ as only rate controlling medication at home. Currently rate controlled with amiodarone 200 mg oral daily. Takes Xarelto at home for anticoagulation. Off anticoagulation as per request from surgical team. Started on prophylaxis Heparin 5000 every 8 hourly. 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 Has myocardial perfusion study on 10/05/22. Ischemic work-up was negative. Currently troponin series additionally negative. No acute ST-T wave changes to suggest acute coronary syndrome. (12) Anemia: Acute blood loss anemia Has received 7 units of PRBC transfusion so far Monitor H&H (13) Hyperkalemia: Now resolved (14) Restrictive lung disease due to kyphoscoliosis: Aware (15) COVID-19: Had COVID in early 08/2022 and was hospitalized in [place] briefly needing oxygen. (16) Pleural effusion: Moderate right-sided pleural effusion: Seen on CT chest Ultrasound chest: Has not shown any significant pocket for thoracentesis Monitor chest x-ray Plan Plan for the day: Sedation vacation. Plan to turn off propofol gradually and start Precedex and review of possible extubation within the next 2 to 3 days. IV Lasix 40 mg one-time. Monitor input output. Monitor BMP daily. For now continue with vancomycin and meropenem. We will plan to discontinue v ancomycin by the next 24 hours if remains hemodynamically stable. Follow-up blood culture and sputum culture. Sent peritoneal fluid culture. CODE STATUS: Full code DVT prophylaxis: On SCDs Care discussed in detail with patient's primary team, nurse at bedside. Thank you for involving us in care of Mr. Voss. Please call back with any questions. Discharge plan: Given extensive hospitalization with multiple trips to the OR, prolonged intubation patient will most likely require extensive wound care and rehabilitation. Case management alerted. Patient has been declined by multiple SNF. Referral sent to [facility]. Caitlyn Medical Necessity Statement*: Requires further hospitalization for postoperative care given ileostomy, ventilator dependence in a patient postresection of colonic anastomosis, restrictive lung disease, obstructive sleep apnea while safe discharge planning is sought Coding Level of Care Code Critical Care >/= 30 minutes Critical care time (in minutes): 70 The high probability of a clinically significant, sudden or life threatening deterioration, as referenced in this documentation, required my full and direct attention, intervention and personal management. The critical care time shown is in addition to time spent performing any reported separately billable procedures and includes the following: [x] Data and vital sign review and interpretation [x ] Patient assessment, examination and intervention [x] Medication orders and management [x] Patient/Family updates as able [x] Care Coordination and Doc umentation. Diagnoses Ventilator dependent Z99.11 Status post left hemicolectomy Z90.49 Pneumonia J18.9 Septic shock A41.9; R65.21 C. difficile colitis A04.72 Intra-abdominal collection R18.8 TALON (acute kidney injury) N17.9 Obstructive sleep apnea G47.33 Hypernatremia E87.0 Hypertension I10 Atrial fibrillation with rapid ventricular response I48.91 Anemia D64.9 Hyperkalemia E87.5 Restrictive lung disease due to kyphoscoliosis J98.4; M41.9 COVID-19 U07.1 Pleural effusion J90
[2022-11-05] MEDS: pantoprazole 40 mg SDV IVP (08:22)
[2022-11-05] MEDS: amiodarone 200 mg Tablet PO (08:22)
[2022-11-05] MEDS: nystatin powder 15 gm Btl 1 APPLIC TOPICAL ×2 (08:53→21:35)
[2022-11-05] MEDS: FUROsemide 10 mg/mL SDV 4mL 40 MG IVP (10:01)
--- NOTE | 2022-11-05 11:38 | XR_ITS ---
WS: [id number] PORTABLE CHEST HISTORY: Post PICC placement COMPARISON: 11/04/2022 Placement of a RIGHT PICC line with tip terminating at the caval atrial junction. Endotracheal tube a nd nasogastric tubes are in good position. Mild diffuse pulmonary edema. Small bilateral pleural effusions are likely. No pneumothorax. Cardiac size: Mildly enlarged cardiac silhouette. Mediastinum/Aorta: Mild prominence of the mediastinum due to positioning. No osseous abnormality seen. XR/XR chest 1V portable [id number] IMPRESSION: Satisfactory placement right-sided PICC line.
--- NOTE | 2022-11-05 13:18 | PC.NURSE ---
PICC inserted to right basilic vein without difficulty. 48 cm inserted with 0 cm external length noted. Mid arm circumference measured 10 cm from right AC space noted at 30 cm. Dressing due to be changed tomorrow 11/06/22. Report given to patient care nurse.
--- NOTE | 2022-11-05 17:07 | P.PN_ITS ---
Subjective Subjective: Patient remains intubated and sedated. Ostomy functioning Vitals/I&O/Wt Last Vital Signs Temp 98.8 F 11/05/22 16:00 Pulse 75 11/05/22 16:00 Resp 15 11/05/22 16:00 BP 125/67 11/05/22 16:00 Pulse Ox 98 11/05/22 16:00 O2 Del Method 11/05/22 16:00 O2 Flow Rate 4 11/01/22 14:26 FiO2 30 11/05/22 16:00 11/05/22 11/05/22 11/05/22 06:59 14:59 22:59 Intake Total 1205.667 / 3772.815 1842.538 / 1842.538 80.722 / 1923.260 Output Total 1350 / 3350 4700 / 4700 Balance -144.333 / 422.815 -2857.462 / -2857.462 80.722 / -2776.740 Weight last 48 hrs Weight 338 lb 6.553 oz Weight 338 lb 6.553 oz Physical Exam Narrative: General: No acute distress, intubated and sedated s Abdomen, soft, nondistended, wound VAC in place with serosanguineous output,, no grimace to palpation wound measures 30 cm x 9 cm x 3 cm deep Drain 2 serosanguineous drain 3 purulent with minimal output Urinary Catheter Management: Orellana: Cath Placed During This Visit: yes, but has since been removed by the nurse Reason for Continuing Indwelling Catheter: Accurate Measurement of Urinary Output in Critically Ill Patients Urinary Catheter Date of Insertion: 10/15/22 Urinary Catheter Time of Insertion: 13:50 Date Urinary Catheter Removed: 10/10/22 Time Urinary Catheter Discontinued: 17:45 Data 11/05/22 02:48 11/05/22 02:48 Micro: Microbiology 11/05/22 Unknown Gram Stain - Final Peritoneal Fluid A&P Assessment and plan (1) Colon cancer: (2) Status post left hemicolectomy: (3) C. 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 Attempting closure via wound VAC vancomycin orally for 10 days- last day Nov 05 Drain #3 abuts intraabdominal fluid collection Hospitalist following-appreciate input will consult infectious disease Attestations Medical Necessity Statement*: Requires further hospitalization for postop erative care given ileostomy, ventilator dependence in a patient postresection of colonic anastomosis, restrictive lung disease, obstructive sleep apnea while safe discharge planning is sought Coding Level of Care Code Acute Code for Chg Fwd Diagnoses Colon cancer C18.9 Status post left hemicolectomy Z90.49 C. difficile colitis A04.72 Intra-abdominal collection R18.8 Pneumonia J18.9 Pleural effusion J90 Anemia D64.9 TALON (acute kidney injury) N17.9
[2022-11-05] MEDS: propofol 1,000 MG/100 ML INJ 21.82 MG IV (20:14)
[2022-11-05] MEDS: trazodone 150 mg Tablet 300 MG PO (21:35)
[2022-11-06] VITALS (46 sets, daily range): BP systolic 98–138; BP diastolic 54–74; PULSE 59–86; RESP 8–18; TEMP 37.1–37.4; O2SAT 91–99; BMI 41.2
[2022-11-06] MEDS: meropenem 500 MG in sodium chloride 0.9% (plus) 50 ML 100 MG IV ×3 (00:36→16:30)
[2022-11-06] MEDS: propofol 1,000 MG/100 ML INJ 21.82 MG IV ×3 (00:36→09:32)
[2022-11-06] MEDS: levalbuterol 0.63 mg/3 mL Neb INHALATION ×4 (02:05→20:04)
[2022-11-06] MEDS: heparin 5,000 unit/mL INJ 1 mL 5000 UNIT SUBCUT ×3 (02:56→18:10)
[2022-11-06 03:17] LABS: ABG PCO2 49.3 mmHg (35-45); ABG PH Result 7.45 (7.35-7.45); Arterial Blood Gas Hematocrit 25.2 % (42-52); Base Excess ABG 9.2 mmol/L (-2.0-2.0); Blood Gas Allen Test Pos; Blood Gas Operator Identificat MONRO; Blood Gas Sample Site Radial, right; Blood Gas Sample Type Arterial; Fractionated Inspired Oxygen 0.3 %; HCO3 ABG 34.3 mmol/L (22-26); Oxygen Device VENT; PO2 ABG 76.5 mmHg (80.0-100.0)
[2022-11-06 03:49] LABS: Basophils % 0.4 %; Eosinophils # 0.4 10^3/uL (0.0-0.8); Eosinophils % 5.3 %; Hematocrit 25.9 % (42.0-52.0); Hemoglobin 7.7 g/dL (11.7-16.6); Lymphocytes # 1.2 10^3/uL (0.8-4.8); Lymphocytes % 16.1 %; Mean Corpuscular HGB Conc 29.7 g/dL (30.0-36.0); Mean Corpuscular Hemoglobin 29.3 pg (28.0-34.0); Mean Corpuscular Volume 98.5 fl (80-94); Mean Platelet Volume 10.7 fL (7.4-10.4); Monocytes # 0.9 10^3/uL (0.2-0.9); Monocytes % 12.5 %; Neutrophils # 4.62 10^3/uL (1.8-7.7); Neutrophils % 64.7 %; Nucleated Red Blood Cells % 0 %; Platelet Count 198 10^3/cmm (130-400); Red Blood Count 2.63 10^6/uL (4.1-5.3); Red Cell Distribution Width 17.1 % (12.1-15.1); White Blood Count 7.1 10^3/uL (4.0-10.0)
[2022-11-06 04:32] LABS: Alanine Aminotransferase 20 U/L (0-41); Albumin Level 2.6 g/dL (3.5-5.2); Alkaline Phosphatase 99 U/L (40-130); Anion Gap 9.7 (5-19); Aspartate Amino Transferase 17 U/L (0-40); Blood Urea Nitrogen 22 mg/dL (8-23); Calcium 8.1 mg/dL (8.5-10.5); Carbon Dioxide 32 mmol/L (22-29); Chloride 103 mmol/L (98-107); Glomerular Filtration Rate 60.4 mL/min (90-130); Glucose 110 mg/dL (65-115); Osmolality Calculated 294 mOsm/kg (285-295); Potassium 4.7 mmol/L (3.5-5.1); Sodium 140 mmol/L (136-145); Total Bilirubin 0.2 mg/dL (0.15-1.2); Total Protein 5.6 g/dL (6.6-8.7)
--- NOTE | 2022-11-06 06:00 | XRR_ITS ---
PROCEDURE INFORMATION: Exam: XR Chest Exam date and time: 11/06/2022 6:03 AM Age: 67 years old Clinical indication: Device placement; Ett placement (vent status); Additional info: Intubated TECHNIQUE: Imaging protocol: Radiologic exam of the chest. Views: 1 view. COMPARISON: CR XR chest 1V portable [id number] 11/05/2022 12:35 PM FINDINGS: Tubes, catheters and devices: Endotracheal tube terminates approximately 3.6 cm above the shania. Enteric tube passes into the stomach. Right upper extremity PICC is in place. The tip terminates in the region of the superior cavoatrial junction. Lungs: Similar bibasilar airspace opacities. Pleural spaces: Small bilateral pleural effusions, similar to prior. No pneumothorax. Heart/Mediastinum: Cardiomegaly. Bones/joints: Thoracic spinal fixation hardware. XR/XR chest 1V portable [id number] IMPRESSION: 1. Similar small bilateral pleural effusions with bibasilar airspace opacities. 2. Stable positioning of support apparatus.
[2022-11-06] MEDS: amiodarone 200 mg Tablet PO (08:31)
[2022-11-06] MEDS: pantoprazole 40 mg SDV IVP (08:31)
[2022-11-06] MEDS: budesonide 0.5 mg/2 mL Neb INHALATION ×2 (08:50→20:04)
[2022-11-06] MEDS: dexmedetomidine 400 MCG in sodium chloride 0.9% (100 ml) 100 ML 15.96 MCG IV (09:04)
[2022-11-06] MEDS: nystatin powder 15 gm Btl 1 APPLIC TOPICAL ×2 (10:02→21:47)
--- NOTE | 2022-11-06 10:20 | PC.CHAP ---
Pastoral Care Encounter/Spiritual Assessment Type of Contact [] Declined reconciler visit [] Patient/Family/Request visit [] Outpatient visit [] Follow-up visit [] Physician referral [] Code/Alert [x] Routine visit [] Staff referral [] Actively dying [x] Patient sleeping [] Family support [] [] Out of room [] Palliative care [] [] Receiving care in room [] Pre-surgical visit [] Trauma [] Long length of stay [x] ICU visit [x] Other: PT on vent.. our understand present in am and pm for visit.. Relational/Emotional Strength [] Patient feels connected with others/family/visitors/staff [] Distress [] Loneliness/isolation [] Abandonment Spirituality of Patient [] Person of Maryanne [] Attends Congregation of their Maryanne [] Believes in Prayer [] Reads Bible or Mormonism materials [] There are Spiritual issues to be addressed Public Health Staff Nurse 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 [x] Prayer [] Active listening [] Non-anxious presence [] Spiritual/emotional support [] Crisis/trauma care [] Spiritual counseling [] Bereavement support [] Provided bereavement packet [] Provided Bible/devotional materials [] Provided toy/stuffed animal, coloring book to patient or family member [] Provided Communion [] Anointing/[place] [] Salvation [x] Completed spiritual assessment [] Other: Impact on Illness or Injury [] Angry [] Fearful [] Anxious [] Often cries [] Exhaustion [] Unable to work [] Unable to attend latter-day [] Unable to walk/stand [] Unable to read [] Unable to drive [] Unable to eat/drink [] Unable to sleep [] Unable to be with family [] Patient intubated [] Other: Summary Time spent with patient
--- NOTE | 2022-11-06 10:42 | PM.PN ---
Subjective Subjective: Patient remains intubated and sedated. ICU plans on switching to Precedex and extubating by tomorrow hopefully. He is tolerating tube feeds at goal and has good ostomy output. Vitals/I&O/Wt Last Vital Signs Temp 98.9 F 11/06/22 10:00 Pulse 59 L 11/06/22 10:00 Resp 16 11/06/22 10:08 BP 138/74 11/06/22 10:00 Pulse Ox 95 11/06/22 10:08 O2 Del Method 11/06/22 10:00 O2 Flow Rate 4 11/01/22 14:26 FiO2 30 11/06/22 10:08 11/05/22 11/06/22 11/06/22 22:59 06:59 14:59 Intake Total 1300.972 / 3143.510 1309.948 / 4453.458 150 / 150 Output Total 1205 / 5905 1100 / 7005 450 / 450 Balance 95.972 / -2761.490 209.948 / -2551.542 -300 / -300 Weight last 48 hrs Weight 338 lb 8 oz Weight 338 lb 6.553 oz Physical Exam Narrative: General: No acute distress, intubated and sedated s Abdomen, soft, nondistended, wound VAC in place with serosanguineous output,, no grimace to palpation wound measures 30 cm x 9 cm x 3 cm deep Drain 2 serosanguineous drain 3 purulent with minimal output Urinary Catheter Management: Orellana: Cath Placed During This Visit: yes, but has since been removed by the nurse Reason for Continuing Indwelling Catheter: Accurate Measurement of Urinary Output in Critically Ill Patients Urinary Catheter Date of Insertion: 10/15/22 Urinary Catheter Time of Insertion: 13:50 Date Urinary Catheter Removed: 10/10/22 Time Urinary Catheter Discontinued: 17:45 Data 11/06/22 03:24 11/06/22 03:24 Micro: Microbiology 11/05/22 Unknown Gram Stain - Final Peritoneal Fluid A&P Assessment and plan (1) Colon cancer: (2) Status post left hemicolectomy: (3) C. 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 Attempting closure via wound VAC Drain #3 abuts intraabdominal fluid collection DC drain #2 Hospitalist following-appreciate input will consult infectious disease Attestations Medical Necessity Statement*: Patient requires multiple overnights in the hospital as he is intubated and sedated. Coding Level of Care Code Acute Code for Chg Fwd Diagnoses Colon cancer C18.9 Status post left hemicolectomy Z90.49 C. difficile colitis A04.72 Intra-abdominal collection R18.8 Pneumonia J18.9 Pleural effusion J90 Anemia D64.9 TALON (acute kidney injury) N17.9
--- NOTE | 2022-11-06 13:18 | PC.SOCIAL ---
IMM not given Pt is intubated at this time. IMM not updated. Pt is not expected to discharge in the next 24-48hrs.
[2022-11-06 15:28] LABS: Blood Gas Sample Site ARTERIAL
[2022-11-06] MEDS: dexmedetomidine 400 MCG in sodium chloride 0.9% (100 ml) 100 ML 7.98 MCG IV (16:28)
--- NOTE | 2022-11-06 16:41 | P.PN_ITS ---
Subjective Subjective: Seen multiple times in the day. No acute events overnight. Patient has remained sedated on propofol and fentanyl. Today morning started on fentanyl of 150, propofol of 15. Documented urine output of 7 L in last 24 hours. Minimal ventilator support with FiO2 of 30%, tidal volume of 500, PEEP of 8. Appreciate ABG and lab work. 2 surgical drains removed as per primary team. Vitals/I&O/Wt Last Vital Signs Temp 99.3 F 11/06/22 13:51 Pulse 65 11/06/22 15:17 Resp 14 11/06/22 15:17 BP 124/57 11/06/22 13:51 Pulse Ox 95 11/06/22 15:17 O2 Del Method 11/06/22 15:05 O2 Flow Rate 4 11/01/22 14:26 FiO2 30 11/06/22 15:17 11/06/22 11/06/22 11/06/22 06:59 14:59 22:59 Intake Total 1309.948 / 4453.458 840.706 / 840.706 13.294 / 854.000 Output Total 1100 / 7005 950 / 950 Balance 209.948 / -2551.542 -109.294 / -109.294 13.294 / -96.000 Weight last 48 hrs Weight 153.541 kg Weight 153.5 kg Physical Exam Narrative: General: Intubated, sedated HEENT: PERRLA, pupils bilaterally equal and reactive Chest: Normal vesicular breath sounds, no added sounds, equal good air entry bilaterally CVS: S1-S2 regular, no murmurs, no tachycardia, no gallops, no rubs Abdomen: Distended, surgical drains present, central surgical scar with wound VAC present. Neuro: Intubated, sedated Urinary Catheter Management: Orellana: Cath Placed During This Visit: yes, but has since been removed by the nurse Reason for Continuing Indwelling Catheter: Accurate Measurement of Urinary Output in Critically Ill Patients Urinary Catheter Date of Insertion: 10/15/22 Urinary Catheter Time of Insertion: 13:50 Date Urinary Catheter Removed: 10/10/22 Time Urinary Catheter Discontinued: 17:45 Data 11/06/22 03:24 11/06/22 03:24 Micro: Microbiology 11/05/22 Unknown Gram Stain - Final Peritoneal Fluid Body Fluid Culture - Preliminary Yeast species A&P Assessment and plan (1) Ventilator dependent: Most likely secondary to postoperative status in setting of obstructive sleep apnea, COPD. Difficult to extubate given postoperative status with abdominal wound VAC. Baseline sleep apnea requiring CPAP up to pressure of 12. Noncompliant at home. Extubated to heated high flow on 10/26. Reintubated on 11/01 for OR. Oxygen supplementation keeping saturation over 88%. Continue with DuoNebs every 6 hour, budesonide twice daily. Depending on clinical picture within the next 2 to 3 days. Sedation vacation. Turn to MMV mode. 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 Status post resection of colonic anastomosis and end ileostomy formation for wound dehiscence on 10/15. Unfortunately patient started passing large blood clot from the colostomy site on 11/01. Taken back to the OR for colostomy revision and control of bleeding. Post cauterization of rectus sheath. S/P 6 units PRBCs , 3 units of FFP , tranexamic acid, 1 bag platelet. Wound care, diet advancement, anticoagulation as per primary team. (3) Pneumonia: Hospital acquired Pneumonia: Patient been complaining of coughing. CTA chest has shown: Consolidation in the right upper lobe, right middle lobe, and right lower lobe. Patient has been restarted on meropenem as well as vancomycin. Repeat sputum culture from 11/01 so far negative. (4) Septic shock: Patient met sepsis criteria: Has elevated white cell count, endorgan dysfunction in the presence of TALON, fever, likely intra-abdominal infection as a source, with possible pneumonia. Now resolved. Keep mean artery pressure 65, saturation over 90%. MRSA negative, sputum culture from 10/25 growing Klebsiella pneumonia and Anabela albicans. Sensitivities noted. Repeat sputum culture sent on 11/01 so far sterile. Send abscess culture today from drain 3. Vancomycin stopped as MRSA negative. Last day of meropenem supposed to be on 10/31. Antibiotics restarted when taken back to the OR. Currently on vancomycin and meropenem again as per creatinine clearance. Most recently restarted on 11/01. Continue with IV fluids. (5) C. difficile colitis: Positive on 10/26. Start on oral vancomycin 125 mg 4 times daily. Monitor colostomy output. (6) Intra-abdominal collection: Seen on abdominal CT scan from 10/25. Send cultures. Most likely patient will need a repeat scan as per drain output. (7) TALON (acute kidney injury): Baseline serum creatinine usually around 1. Creatinine seems to be stabilizing around 1.3-1.4 currently. Monitor BMP Avoid nephrotoxic's Monitor intake output charting (8) Obstructive sleep apnea: Not currently using cpap at home due to malfunction of machine. ABG with evidence of hypercapnic hypoxic respiratory failure. Known restrictive lung disease and asbestosis. At baseline uses CPAP at home, unable to utilize BiPAP given abdominal surgery. Currently saturating 93% on supplemental O2, does drop down to 70% on room air. Does not typically use oxy gen at home. Continue to use DuoNeb and budesonide scheduled inhalation. No current indication for steroid use. Suspect that patient may have underlying baseline hypoxia and will likely require supplemental O2 at discharge. (9) Hypernatremia: IV fluids Monitor serum sodium (10) Hypertension: Chronic diagnosis, usually on bisoprolol-HCTZ and lisinopril. Goal blood pressure less than 140/90 mmHg with mean over 65. Currently all antihypertensives on hold. Will restart aspirin blood pressures goals. (11) Atrial fibrillation with rapid ventricular response: In a patient with known chronic atrial fibrillation, on bisoprolol in combination with HCTZ as only rate controlling medication at home. Currently rate controlled with amiodarone 200 mg oral daily. Takes Xarelto at home for anticoagulation. Off anticoagulation as per request from surgical team. Started on prophylaxis Heparin 5000 every 8 hourly. 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 Has myocardial perfusion study on 10/05/22. Ischemic work-up was negative. Currently troponin series additionally negative. No acute ST-T wave changes to suggest acute coronary syndrome. (12) Anemia: Acute blood loss anemia Has received 7 units of PRBC transfusion so far Monitor H&H (13) Hyperkalemia: Now resolved (14) Restrictive lung disease due to kyphoscoliosis: Aware (15) COVID-19: Had COVID in early 08/2022 and was hospitalized in [place] briefly needing oxygen. (16) Pleural effusion: Moderate right-sided pleural effusion: Seen on CT chest Ultrasound chest: Has not shown any significant pocket for thoracentesis Monitor chest x-ray Plan Plan for the day: Sedation vacation. Stop propofol. Switch over to Precedex. Maintain on low-dose fentanyl from 75. Switch to pressure support mode. Wean down on pressure support more gradually within the next few days. Put on full ventilator support overnight. Overnight maintain patient on Precedex and fentanyl. Hold off on Lasix. Monitor BMP daily. Continue vancomycin and meropenem. ID consult as per primary team. Follow-up abdominal cultures. Monitor hemoglobin. Target hemoglobin more than 7. CODE STATUS: Full code DVT prophylaxis: On SCDs Care discussed in detail with patient's primary team, nurse at bedside. Thank you for involving us in care of Mr. Voss. Please call back with any questions. Discharge plan: Given extensive hospitalization with multiple trips to the OR, prolonged intubation patient will most likely require extensive wound care and rehabilitation. Case management alerted. Patient has been declined by multiple SNF. Referral sent to select. Attestations Medical Necessity Statement*: Requires further hospitalization for ventilator dependent respiratory failure in setting postoperative care for hemicolectomy, colostomy revision in a patient with obstructive sleep apnea Coding Level of Care Code Critical Care >/= 30 minutes Critical care time (in minutes): 60 The high probability of a clinically significant, sudden or life threatening d eterioration, as referenced in this documentation, required my full and direct attention, intervention and personal management. The critical care time shown is in addition to time spent performing any reported separately billable procedures and includes the following: [x] Data and vital sign review and interpretation [x ] Patient assessment, examination and intervention [x] Medication orders and management [x] Patient/Family updates as able [x] Care Coordination and Documentation. Diagnoses Ventilator dependent Z99.11 Status post left hemicolectomy Z90.49 Pneumonia J18.9 Septic shock A41.9; R65.21 C. difficile colitis A04.72 Intra-abdominal collection R18.8 TALON (acute kidney injury) N17.9 Obstructive sleep apnea G47.33 Hypernatremia E87.0 Hypertension I10 Atrial fibrillation with rapid ventricular response I48.91 Anemia D64.9 Hyperkalemia E87.5 Restrictive lung disease due to kyphoscoliosis J98.4; M41.9 COVID-19 U07.1 Pleural effusion J90
[2022-11-06] MEDS: trazodone 150 mg Tablet 300 MG PO (21:46)
--- NOTE | 2022-11-06 22:30 | PM.CONSULT ---
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 He underwent laparoscopic left hemicolectomy on October 08, 2022 which was converted to an open procedure with primary anastomosis. Postoperative course has been complicated by development of atrial fibrillation,Anastomotic leak due to dehiscence at the anastomosis, requiring return to the OR on October 15 for exploratory laparotomy, partial colonic resection and end colostomy formation. CT on this day had shown large amount of free air and subcutaneous emphysema along with free fluid along the left paracolic gutter, anastomotic dehiscence and extravasation of large amount of extraluminal air and rectal contrast. On October 18, he developed septic shock and needed to be on 2 pressors thereafter. peak WBC count of 24K on this day. CT on this day showed improved fluid overall since the exam on October 15, 2022 without any residual air. There was no extraluminal contrast extravasation. There was a possible developing pneumonia at the right lung base. He had a repeat CT on 10/25 which showed a Central pelvic collection measures 8.6 x 3.3 cm. Differential includes a small central abscess versus seroma or hematoma. He was found to be C. difficile positive on 10/26. . He had TALON which is currently improving. He was able to be extubated on October 26. It appears his diet was able to be advanced on October 27, by October 29 his tube feeds were at goal. Regular diet was initiated on October 30.. He had a colostomy output. He has a wound VAC over his abdominal wound. On November 01, he started to bleed profusely from his rectus muscle which required partial takedown of the colostomy and control of the hemorrhage with colostomy revision. He was transfused 6 unit of packed red blood cells, and received other blood products per the massive hemorrhage protocol. CT of his abdomen and pelvis on this day showed increased size of a 6.7 x 6.1 x 2.4 cm lesion in the region of the right rectus muscle and a complex fluid collection. The previously noted central fluid collection showed improvement in size 7.1 x 2.7 x 3.4 cm. Currently has a drain in place at the site ?? He has remained intubated since this most recent surgery and is currently receiving sedation vacations and breathing trials. Pressors have been weaned off. Review of Systems General: Reports: ROS unobtainable due to endotracheal tube Medications/Allergies Home Medications Medication Instructions Recorded Confirmed Last Taken Type allopurinol 300 mg tablet 300 mg PO DAILY@219910/15/19 10/09/22 09/18/22 History folic acid 1 mg tablet 1 mg PO DAILY@219910/15/19 10/09/22 09/17/22 History multivitamin 6 tab PO DAILY@219910/15/19 10/08/22 10/07/22 History ascorbic acid (vitamin C) 1,000 mg 1,000 mg PO DAILY@219910/27/19 10/09/22 09/17/22 History tablet (Vitamin C) sennosides 8.6 mg tablet (senna) 8.6 mg PO DAILY PRN Constipation 10/27/19 10/08/22 10/07/22 History vitamin E 670 mg (1,000 unit) 1,000 unit PO DAILY@219910/27/19 10/09/22 09/17/22 History capsule biotin 1 mg tablet 1 mg PO DAILY 11/15/20 10/09/22 09/17/22 History glucosamine 750 mg-chondroit 100 2 tab PO DAILY 11/15/20 10/08/22 10/07/22 History mg-msm-D3 25 [id number] bor tablet lycopene 10 mg capsule 10 mg PO DAILY 11/15/20 10/09/22 09/17/22 History resveratrol 250 mg capsule 250 mg PO QPM 11/15/20 10/09/22 09/17/22 History saw palmetto 500 mg capsule 500 mg PO DAILY 11/15/20 10/09/22 09/17/22 History Custom Molded Orthotics #1 ea 10/30/21 10/09/22 Unknown Rx Night splint to Right #1 ea 10/30/21 10/09/22 Unknown Rx loratadine 10 mg tablet (Claritin) 10 mg PO DAILY PRN Allergy Symptoms 11/21/21 10/09/22 07/17/22 History lovastatin 40 mg tablet 40 mg PO BEDTIME 11/21/21 10/09/22 09/18/22 History budesonide-formoterol HFA 80 2 puff inhalation BID@ #10.2 01/19/22 10/09/22 09/16/22 Rx mcg-4.5 mcg/actuation aerosol grams inhaler (Symbicort) testosterone cypionate 200 mg/mL 120 mg (0.6 mL) IM Q7D #10 mL 06/21/22 10/08/22 10/02/22 Rx intramuscular oil bisoprolol 10 2 tab PO BEDTIME 07/18/22 10/09/22 09/18/22 History mg-hydrochlorothiazide 6.25 mg tablet ketoconazole 2 % shampoo 1 applic topical DAILY PRN Rash 07/18/22 10/08/22 10/05/22 History tadalafil 20 mg tablet (Cialis) 20 mg PO DAILY PRN sexual activity 09/18/22 10/09/22 Unknown History rivaroxaban 20 mg tablet (Xarelto) 20 mg PO QPM 10/05/22 10/09/22 10/02/22 History acetaminophen 500 mg tablet 1,000 mg PO BID PRN Pain 10/09/22 10/09/22 Unknown History cholecalciferol (vitamin D3) 10 10 mcg PO DAILY 10/09/22 10/09/22 Unknown History mcg (400 unit) capsule (Vitamin D3) chromium picolinate 1,000 mcg 1,000 mcg PO DAILY 10/09/22 10/09/22 Unknown History tablet lisinopril 20 mg tablet 20 mg PO BEDTIME 10/09/22 10/09/22 Unknown History melatonin 5 mg tablet 5 mg PO BEDTIME 10/09/22 10/09/22 Unknown History trazodone 150 mg tablet 300 mg PO BEDTIME 10/09/22 10/09/22 Unknown History triamcinolone acetonide 0.1 % 1 applic topical EVERY OTHER DAY 10/09/22 10/09/22 Unknown History topical cream Allergies Allergy/AdvReac Type Severity Reaction Status Date / Time oats Allergy DIARRHEA Verified 10/08/22 06:11 apixaban [From Eliquis] AdvReac Severe Headaches Verified 10/08/22 06:11 caffeine AdvReac Unknown PALPITATION Verified 10/08/22 06:11 S apple AdvReac DIARRHEA, Verified 10/08/22 06:11 VOMITING AND CRAMPING egg AdvReac DIARRHEA, Verified 10/08/22 06:11 VOMITING AND STOMACH CRAMPING meperidine [From Demerol] AdvReac EXCESSIVE Verified 10/08/22 06:11 SEDATION morphine AdvReac HALLUCINATI Verified 10/08/22 06:11 ONS berries Allergy Unknown Uncoded 10/08/22 06:11 raw tomatoes Allergy ADR-Gastrointestinal Uncoded 10/08/22 06:11 Upset FRYE AdvReac DIARRHEA Uncoded 10/08/22 06:11 Current Medications Generic Name Dose Route Start Last Admin Trade Name Freq PRN Reason Stop Dose Admin Acetaminophen 650 mg 10/13/22 19:53 10/13/22 20:21 Acetaminophen 325 Mg Tablet PO 650 mg Q6H PRN Administration FEVER Albuterol Sulfate 2.5 mg 10/22/22 10:33 10/26/22 07:35 Albuterol 2.5 Mg/3 Ml Neb INHALATION 2.5 mg Q6H.RESP PRN Administration SHORTNESS OF BREATH Amiodarone HCl 200 mg 10/30/22 09:00 11/06/22 08:31 Amiodarone 200 Mg Tablet PO 200 mg DAILY SOFIA Administration Amlodipine Besylate 10 mg 11/01/22 09:15 11/01/22 09:53 Amlodipine 10 Mg Tablet PO Not Given DAILY SOFIA Atorvastatin Calcium 20 mg 10/13/22 21:00 10/14/22 20:20 Atorvastatin 40 Mg Tablet PO 20 mg BEDTIME SOFIA Administration Budesonide 0.5 mg 10/08/22 20:00 11/06/22 20:04 Budesonide 0.5 Mg/2 Ml Neb INHALATION 0.5 mg BID.RESPIRATORY SOFIA Administration Folic Acid 1 mg 10/13/22 22:00 10/14/22 22:01 Folic Acid 1 Mg Tablet PO 1 mg DAILY@2200 SOFIA Administration Heparin Sodium (Porcine) 5,000 unit 10/26/22 10:30 11/06/22 18:10 Heparin 5,000 Unit/Ml Inj 1 Ml SUBCUT 5,000 unit Q8H SOFIA Administration Tranexamic Acid 1,000 mg/ 110 mls @ 330 mls/hr 11/01/22 14:23 11/02/22 07:28 Sodium Chloride IV Infused Q30M PRN Infusion BLEEDING Propofol 1,000 mg in 100 mls @ 0 mls/hr 11/01/22 16:30 11/06/22 14:44 Diprivan IV Infused .Q0M SOFIA Titration Protocol Per Protocol Meropenem 500 mg/ Sodium 50 mls @ 100 mls/hr 11/01/22 17:00 11/06/22 17:14 Chloride IV Infused Q8H SOFIA Infusion Protocol Fentanyl 1,000 mcg/ Sodium 100 mls @ 0 mls/hr 11/01/22 17:00 11/06/22 21:30 Chloride IV 75 mcg/hr .Q0M SOFIA 7.5 mls/hr Administration Protocol Per Protocol Vancomycin HCl 2,000 mg/ 500 mls @ 250 mls/hr 11/04/22 08:00 11/06/22 10:47 Sodium Chloride IV Infused Q24H SOFIA Infusion Dexmedetomidine HCl 400 mcg/ 104 mls @ 0 mls/hr 11/05/22 16:45 11/06/22 16:28 Sodium Chloride IV 0.2 mcg/kg/hr .Q0M SOFIA 7.98 mls/hr Administration Protocol Per Protocol Levalbuterol HCl 0.63 mg 10/26/22 20:00 11/06/22 20:04 Levalbuterol 0.63 Mg/3 Ml Neb INHALATION 0.63 mg Q6H.RESP SOFIA Administration Metoclopramide HCl 5 mg 10/27/22 08:01 10/29/22 20:02 Metoclopramide 5 Mg/Ml Sdv 2 Ml IVP 5 mg Q6H PRN Administration NAUSEA AND VOMITING Metoprolol Tartrate 25 mg 10/29/22 21:00 11/02/22 21:31 Metoprolol Tartrate 25 Mg Tablet PO 25 mg BID@0900,2100 SOFIA Administration Nystatin 1 applic 10/26/22 21:00 11/06/22 21:47 Nystatin Powder 15 Gm Btl TOPICAL 1 applic 0900,2100 SOFIA Administration Ondansetron HCl 4 mg 10/08/22 13:09 10/27/22 04:23 Ondansetron 2 Mg/Ml Sdv 2 Ml IVP 4 mg Q6H PRN Administration NAUSEA AND VOMITING Pantoprazole Sodium 40 mg 11/03/22 09:00 11/06/22 08:31 Pantoprazole 40 Mg Sdv IVP 40 mg DAILY SOFIA Administration Simethicone 40 mg 10/14/22 00:41 10/30/22 21:23 Simethicone 80 Mg Chew PO 40 mg TID PRN Administration HICCUPS Trazodone HCl 300 mg 10/13/22 21:00 11/06/22 21:46 Trazodone 150 Mg Tablet PO 300 mg BEDTIME SOFIA Administration Vancomycin HCl 125 mg 10/26/22 17:00 11/06/22 16:32 Vancomycin 1,000 Mg Oral Jovana (Btl) PO 125 mg QID SOFIA Administration Additional Medication Information Meropenem 500 mg iv q8h 10/18- current Vancomycin 2g iv q24h 11/04- Vancomycin 125 mg po QID 10/26- Prior: Zosyn 10/09-10/18 iv vancomycin 10/18-10/25 Fluconazole 10/25- PFSH Acute PFSH: Medical History Afib Allergies Asperger syndrome mild Asthma Cardiomegaly Chronic low back pain Chronic pain syndrome Chronic sinusitis of both maxillary sinuses COVID-19 determined by clinical diagnostic criteria Degenerative joint disease (DJD) of lumbar spine Dyslipidemia Erectile dysfunction Gout Hypertension 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 Obstructive sleep apnea Opioid contract exists previous Osteoarthritis of hands, bilateral Osteoarthritis of knees, bilateral Polycythemia Restrictive lung disease due to kyphoscoliosis Right renal stone Substernal goiter Suspected exposure to asbestos Testosterone deficiency On TRT for 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 Surgical History H/O ankle fusion H/O arthroscopic knee surgery H/O wrist surgery History of appendectomy History of back surgery History of shoulder surgery S/P ureteral stent placement Family History Grandfather CAD (coronary artery disease) Family/Other Cancer Grandmother Dementia Stroke Mother Lung disease Other Hypertension Denies family history of Rheumatoid arthritis Diabetes Lupus Clotting disorder Hyperlipidemia Chronic kidney disease (CKD) Suicide Anesthesia complication Bleeding disorder Social History Smoking and tobacco status: former smoker Quit status (tobacco): has quit using tobacco Year quit tobacco: 1975 [id number] Second hand smoke exposure: Yes Alcohol intake: never Lives independently: Yes Current occupational status: retired Pets and animals: Yes Current gender identity: Male Vitals/I&O/Wt Last Vital Signs Temp 99.3 F 11/06/22 13:51 Pulse 68 11/06/22 20:00 Resp 18 11/06/22 20:06 BP 132/61 11/06/22 17:48 Pulse Ox 97 11/06/22 20:06 O2 Del Method 11/06/22 20:00 O2 Flow Rate 4 11/01/22 14:26 FiO2 30 11/06/22 20:06 11/06/22 11/06/22 11/06/22 06:59 14:59 22:59 Intake Total 1309.948 / 4453.458 840.706 / 130.369 3259.294 / 1943.000 Output Total 1100 / 7005 950 / 950 750 / 1700 Balance 209.948 / -2551.542 -109.294 / -109.294 352.294 / 243.000 Weight last 48 hrs Weight 153.541 kg Weight 153.5 kg Physical Exam Narrative: General: intubated, sedated HEENT: PERRLA, pupils bilaterally equal and reactive, pallors not present Chest: Normal vesicular breath sounds, no added sounds, equal good air entry bilaterally CVS: S1-S2 regular, no murmurs, no tachycardia, no gallops, no rubs Abdomen: Neuro: intubated, sedated ext: Right PICC placed 11/05/22 Urinary Catheter Management: Orellana: Cath Placed During This Visit: yes, but has since been removed by the nurse Reason for Continuing Indwelling Catheter: Accurate Measurement of Urinary Output in Critically Ill Patients Urinary Catheter Date of Insertion: 10/15/22 Urinary Catheter Time of Insertion: 13:50 Date Urinary Catheter Removed: 10/10/22 Time Urinary Catheter Discontinued: 17:45 Data 11/06/22 03:24 11/06/22 03:24 Micro: Microbiology 11/05/22 Unknown Gram Stain - Final Peritoneal Fluid Body Fluid Culture - Preliminary Yeast species 11/05: MISTI drain cx: Yeast spp 11/01: sputum cx: Yeast 10/26: blood cx : NGTD 10/19: Blood cx; NGTD 10/11: Blood cx : NGTD 10/18: urine cx : NGTD 10/25: Stool C diff PCR: positive 10/25: Sputum cx: Klebsiella pn + rohit albicans Kleb pneum M.I.C. RX --------- ------ * Amikacin <=16 S * Amoxicillin/Clavulanate <=8/4 S * Ampicillin >16 R * Ampicillin/Sulbactam <=8/4 S * Aztreonam <=4 S * Cefepime <=8 S * Ceftriaxone <=1 S * Cefuroxime <=4 S * Ciprofloxacin <=1 S * Gentamicin <=2 S * Imipenem <=1 S * Levofloxacin <=2 S * Tetracycline <=4 S * Trimethoprim/Sulfamethoxazole <=2/38 S * Piperacillin/Tazobactam <=16 S 10/15: sputum cx: NGTD 10/22: MRSA nasal PCR: positive Other data: Radiology Impressions KUB X-Ray 10/19/22 22:33 IMPRESSION: Limited portable exam. Abdomen/Pelvis CT 10/25/22 10:30 IMPRESSION: 1. Small RIGHT pleural effusion. 2. Bilateral segmental lower lobe atelectasis and RIGHT middle lobe partial atelectasis. 3. New foci of air in the RIGHT lower quadrant colostomy site. This air was not present on 10/18/2022. Close observation for possible new ischemic changes at the colostomy site. 4. Central pelvic collection measures 8.6 x 3.3 cm. Differential includes a small central abscess versus seroma or hematoma. Recommend close follow-up. This may be difficult for image guided aspiration due to the patient's body habitus and deep position. 5. Nasogastric tube in good position. 6. No free air is appreciated. Head CT 10/31/22 15:43 IMPRESSION: No acute intracranial abnormality. Chest/Abdomen/Pelvis CT 11/01/22 11:22 IMPRESSION: 1. Large 5.2 cm left thyroid nodule with recommendation for nonemergent thyroid ultrasound to rule out neoplasm. 2. Moderate right pleural fluid collection. 3. Compressive atelectasis and pneumonia in the right upper lobe, right middle lobe and right lower lobe. IMPRESSION: 1. Orellana balloon catheter in the urinary bladder. 2. Rectal stump filled with barium. 3. Interval resolution of previously noted air bubbles near the right lower quadrant colostomy with continued inflammation in surrounding fat and soft tissues. 4. Mildly decreased size of 7.1 x 2.7 x 3.4 cm loculated fluid collection or loop of bowel in the mid lower abdomen/upper pelvis compared with previous measurement of 8.4 x 3.1 x 3.6 cm. Axial series 6, images 51-63. Sagittal series 16, images 44-53. Coronal series 15, images 62-56. 5. Apparent increased size of 6.7 x 6.1 x 2.4 cm lesion measuring 23 Hounsfield units in the region of the right rectus muscle, medial and inferior to the right lower quadrant colostomy suggesting possible complex fluid collection with or without infection. Density would be suggestive of unclotted blood versus other complex fluid collection. Axial series 6, images 54-69. 6. Stable 2 left-sided percutaneous peritoneal drainage catheters. COMMENTS: Consistent with the [employer]'s Incidental Findings Committee white paper (J Am Dg Radiol 2018): Any incidental renal lesion less than 1 cm or classified as too small to characterize, or any incidental cystic renal lesion characterized as simple-appearing, is likely benign. No follow-up imaging is recommended for these lesions per consensus recommendations based on imaging criteria. Chest Ultrasound 11/01/22 16:22 IMPRESSION: Small RIGHT pleural effusion. Appears decreased as compared to the prior ultrasound. Chest X-Ray 11/06/22 06:00 IMPRESSION: 1. Similar small bilateral pleural effusions with bibasilar airspace opacities. 2. Stable positioning of support apparatus. Laboratory Results WBC 7.1 10^3/uL (4.0-10.0) 11/06/22 03:24 Corrected WBC Cancelled 10/08/22 15:35 RBC 2.63 10^6/uL (4.1-5.3) L 11/06/22 03:24 Hgb 7.7 g/dL (11.7-16.6) L 11/06/22 03:24 Hct 25.9 % (42.0-52.0) L 11/06/22 03:24 MCV 98.5 fl (80-94) H 11/06/22 03:24 MCH 29.3 pg (28.0-34.0) 11/06/22 03:24 MCHC 29.7 g/dL (30.0-36.0) L 11/06/22 03:24 RDW 17.1 % (12.1-15.1) H 11/06/22 03:24 Plt Count 198 10^3/cmm (130-400) 11/06/22 03:24 MPV 10.7 fL (7.4-10.4) H 11/06/22 03:24 Gran % Cancelled 10/08/22 15:35 Neut % (Auto) 64.7 % 11/06/22 03:24 Lymph % (Auto) 16.1 % 11/06/22 03:24 Sargent % (Auto) 12.5 % 11/06/22 03:24 Eos % (Auto) 5.3 % 11/06/22 03:24 Baso % (Auto) 0.4 % 11/06/22 03:24 Neut # (Auto) 4.62 10^3/uL (1.8-7.7) 11/06/22 03:24 Lymph # (Auto) 1.2 10^3/uL (0.8-4.8) 11/06/22 03:24 Sargent # (Auto) 0.9 10^3/uL (0.2-0.9) 11/06/22 03:24 Eos # (Auto) 0.4 10^3/uL (0.0-0.8) 11/06/22 03:24 Baso # (Auto) 0.0 10^3/uL (0.0-0.1) 11/06/22 03:24 Absolute Gran (auto) Cancelled 10/08/22 15:35 Nucleated RBC % (auto) 0 % 11/06/22 03:24 Nucleated RBCs # 0.0 /100WBC 11/06/22 03:24 PT 15.40 SECONDS (12.1-14.9) H 11/04/22 03:09 INR 1.18 (0.8-1.2) 11/04/22 03:09 APTT 33.3 SECONDS (23.9-36.7) 11/04/22 03:09 Fibrinogen 427 mg/dL (174-498) 11/04/22 03:09 Fibrin Degrad Products Pos, 10-40 ug/mL (NEG) H 11/01/22 15:33 D-Dimer 6.31 ug/mIFEU (0-0.59) H 11/01/22 15:33 Specimen Type Arterial 11/06/22 03:02 Sample Site Radial, right 11/06/22 03:02 ABG pH 7.45 (7.35-7.45) 11/06/22 03:02 ABG pCO2 49.3 mmHg (35-45) H 11/06/22 03:02 ABG pO2 76.5 mmHg (80.0-100.0) L 11/06/22 03:02 ABG HCO3 34.3 mmol/L (22-26) H 11/06/22 03:02 ABG O2 Saturation 93.9 11/05/22 04:00 ABG Base Excess 9.2 mmol/L (-2.0-2.0) H 11/06/22 03:02 Blair Test Pos 11/06/22 03:02 A-a O2 Gradient 12.2 mmHg (5-10) H 11/05/22 04:00 Hematocrit 25.2 % (42-52) L 11/06/22 03:02 Hgb O2 Saturation 91.7 % (95-100) L 11/05/22 04:00 Carboxyhemoglobin 1.9 %THgb (0.4-20.1) 11/05/22 04:00 Methemoglobin 0.5 % (0.4-1.5) 11/05/22 04:00 Total Hemoglobin 8.1 g/dL (14-18) L 11/05/22 04:00 Sodium 147.0 mmol/L (131-143) H 11/05/22 04:00 Potassium 4.1 mmol/L (3.5-5.0) 11/05/22 04:00 Glucose 103.0 mg/dL (70-115) 11/05/22 04:00 Ionized Calcium 1.2 mmol/L (1.1-1.4) 11/05/22 04:00 Respiration Rate 15.0 % 11/02/22 15:14 O2 Delivery Device Vent 11/06/22 03:02 O2 Liters/Min 4.0 % 10/09/22 03:58 Vent Mode Vc/ac 10/23/22 05:20 FiO2 0.3 % 11/06/22 03:02 Tidal Volume 0.50 11/06/22 03:02 PEEP 8.0 cmH20 11/06/22 03:02 Pressure Support 10.0 cmH2O 10/23/22 05:20 Specimen Drawn By [place] 10/23/22 05:20 Spline Rolling Machine Job Setter ID Mahsa 11/06/22 03:02 Sodium 140 mmol/L (136-145) 11/06/22 03:24 Potassium 4.7 mmol/L (3.5-5.1) 11/06/22 03:24 Chloride 103 mmol/L (98-107) 11/06/22 03:24 Carbon Dioxide 32 mmol/L (22-29) H 11/06/22 03:24 Anion Gap 9.7 (5-19) 11/06/22 03:24 BUN 22 mg/dL (8-23) 11/06/22 03:24 Creatinine 1.2 mg/dL (0.7-1.2) 11/06/22 03:24 GFR Calculation 60.4 mL/min (90-130) L 11/06/22 03:24 Glucose 110 mg/dL (65-115) 11/06/22 03:24 POC Glucose 118 mg/dL (70-110) H 11/01/22 09:12 Calculated Osmolality 294 mOsm/kg (285-295) 11/06/22 03:24 Lactate 0.8 mmol/L (0.5-2.2) 10/19/22 02:17 Uric Acid 5.3 mg/dL (3.4-7.0) 10/09/22 03:50 Calcium 8.1 mg/dL (8.5-10.5) L 11/06/22 03:24 Phosphorus 3.4 mg/dL (2.5-4.5) 11/04/22 03:09 Magnesium 2.0 mg/dL (1.7-2.3) 11/04/22 03:09 Iron 17 ug/dL (59-158) L 10/09/22 03:50 TIBC 152 mcg/dl 10/09/22 03:50 % Saturation 11.1 % (20-50) L 10/09/22 03:50 Unsat Iron Binding 135 ug/dL (112-347) 10/09/22 03:50 Total Bilirubin 0.2 mg/dL (0.15-1.2) 11/06/22 03:24 AST 17 U/L (0-40) 11/06/22 03:24 ALT 20 U/L (0-41) 11/06/22 03:24 Alkaline Phosphatase 99 U/L (40-130) 11/06/22 03:24 Troponin T Baseline 27 ng/L (0-15) H 10/08/22 17:20 Troponin T 120 Minute 29.84 ng/L (0-15) H 10/08/22 19:38 Delta Troponin T 2.84 ABS# (0-10) 10/08/22 19:38 Troponin T Hi Sens 6Hr 33.17 ng/L (0-15) H 10/08/22 23:05 Troponin T Hi Sens 6Hr Delta 6.17 ng/L (0-12) 10/08/22 23:05 NT-Pro-B Natriuret Pep 2681 pg/mL (0-125) H 10/12/22 03:22 Total Protein 5.6 g/dL (6.6-8.7) L 11/06/22 03:24 Albumin 2.6 g/dL (3.5-5.2) L 11/06/22 03:24 Globulin 3.0 g/dL (1.3-4.6) 11/06/22 03:24 Carcinoembryonic Ag 18.4 ng/mL (0.0-4.7) H 10/08/22 06:30 Vitamin B12 1054 pg/mL (232-1245) 10/22/22 11:24 Folate 12.3 ng/mL (4.5-32.2) 10/22/22 11:24 Procalcitonin 1.35 ng/mL (0-0.5) H 10/19/22 02:17 TSH 0.90 uIU/mL (0.27-4.20) 10/09/22 03:50 Nasal Influ A H1 2009 PCR Not detected (NOT DETECT) 10/10/22 14:00 Vancomycin Trough 17.5 ug/mL (10-15) H 11/04/22 07:00 Adenovirus (PCR) Not detected (NOT DETECT) 10/10/22 14:00 C. pneumoniae DNA (PCR) Not detected (NOT DETECT) 10/10/22 14:00 Coronavirus 229E (PCR) Detected (NOT DETECT) A 10/10/22 14:00 Human Metapneumovir PCR Not detected (NOT DETECT) 10/10/22 14:00 Influenza A (H1) PCR Not detected (NOT DETECT) 10/10/22 14:00 Influenza A (H3) PCR Not detected (NOT DETECT) 10/10/22 14:00 Influenza Type A (PCR) Not detected (NOT DETECT) 10/10/22 14:00 Influenza Type B (PCR) Not detected (NOT DETECT) 10/10/22 14:00 M. pneumoniae (PCR) Not detected (NOT DETECT) 10/10/22 14:00 Parainfluenza 1 (PCR) Not detected (NOT DETECT) 10/10/22 14:00 Parainfluenza 2 (PCR) Not detected (NOT DETECT) 10/10/22 14:00 Parainfluenza 3 (PCR) Not detected (NOT DETECT) 10/10/22 14:00 Parainfluenza 4 (PCR) Not detected (NOT DETECT) 10/10/22 14:00 RSV Type A (PCR) Not detected (NOT DETECT) 10/10/22 14:00 RSV Type B (PCR) Not detected (NOT DETECT) 10/10/22 14:00 Entero/Rhino (PCR) Not detected (NOT DETECT) 10/10/22 14:00 SARS-CoV-2 (PCR) Not detected (NOT DETECT) 10/10/22 14:00 Blood Type O Negative 11/01/22 19:50 Rho(D) Type Negative 11/01/22 19:50 Antibody Screen Negative 11/01/22 19:50 Crossmatch See Detail 11/01/22 19:50 Fever curve WBC trend A&P Assessment and plan (1) Intra-abdominal collection: Patient with HPI as above and prolonged hospitalization with complications as listed above. Currently ID following for intra abdominal abscess, first described on CT from 10/25/22. On serial CT assessment, abscess appears to be persistent though slightly reduced in size Patient has abdominal peritoneal drain in place however this drain is not currently in the abscess defined above Patient has had multiple abdominal interventions this admission, for now, no further open interventions are planned. Abscess not amenbale to IR guided drainage due to anatomy Currently on treatment with meropenem and vancomycin Blood cx remain negative to date MISTI drain cx thus far with yeast preliminarily Clinically patient is stable off pressors, planned for extubation. He is afebrile and hemodynamically stable . leukocytosis has trended down from a peak of 24K. Given current clinical improvement on conservative management, plan to continue iv abx with serial abdominal imaging 2-3 weeks down the line to follow up on interval improvement of abscess. (counting 10/25 as day 1) Change meropenem to Zosyn as no evidence of ESBL on multiple cx Continue vancomycin for now given MRSA + screen and healing abdominal wound, will plan to d/c closer to discharge Will plan to use po vancomycin taper for as long as patient remains on iv abx to prevent recurrence of C diff When nearing discharge,will likely switch to Ertapenem 1g iv q24h. Will follow (2) C. difficile colitis: (3) Septic shock: (4) Status post left hemicolectomy: Coding Level of Care Code Acute Code for [facility] Diagnoses Intra-abdominal collection R18.8 C. difficile colitis A04.72 Septic shock A41.9; R65.21 Status post left hemicolectomy Z90.49
[2022-11-07] VITALS (54 sets, daily range): BP systolic 87–132; BP diastolic 47–69; PULSE 59–86; RESP 13–18; TEMP 37.4–37.7; O2SAT 89–99; BMI 41.2
--- NOTE | 2022-11-07 00:48 | XR_ITS ---
WS: [id number] PORTABLE CHEST HISTORY: Gastric Tube displaced with feedings. Confirm placement COMPARISON: 11/06/2022 Nasogastric and endotracheal tubes unchanged. Right-sided PICC line unchanged with tip in the distal SVC. Increasing opacification at the RIGHT lung base. Suspect increase in size of the RIGHT pleural effusi on and possible atelectasis at the RIGHT lung base. Small effusion on the LEFT. No pleural effusion o r pneumothorax. Cardiac size: Moderately enlarged cardiac silhouette. Mediastinum/Aorta: Mild widening of the mediastinum. No osseous abnormality seen. XR/XR chest 1V portable [id number] IMPRESSION: 1. Satisfactory positioning of the nasogastric tube. 2. Endotracheal tube in good position. 3. Increasing opacification of the RIGHT lung base. Suspect increasing atelect asis and small effusion.
--- NOTE | 2022-11-07 01:11 | PC.NURSE ---
Upon 0000 Gastric Tube Management check it was noticed that gastric tube had become lodged in side of bed and appeared to be partially pulled out. Feedings were stopped and tube was aspirated. No residuals were found and tube was inserted back to previous susanna. Residuals were aspirated and Chest Xray ordered. Hospitalist notified. Patient was suctioned and SPO2 remains 95%. Patient remains on VC-AC ventilation with no changes required.
[2022-11-07] MEDS: meropenem 500 MG in sodium chloride 0.9% (plus) 50 ML 100 MG IV (01:24)
[2022-11-07] MEDS: heparin 5,000 unit/mL INJ 1 mL 5000 UNIT SUBCUT ×3 (01:28→17:09)
[2022-11-07] MEDS: levalbuterol 0.63 mg/3 mL Neb INHALATION ×4 (03:00→20:20)
[2022-11-07] MEDS: dexmedetomidine 400 MCG in sodium chloride 0.9% (100 ml) 100 ML 15.96 MCG IV ×3 (03:05→17:06)
[2022-11-07 03:55] LABS: Alanine Aminotransferase 19 U/L (0-41); Albumin Level 2.7 g/dL (3.5-5.2); Alkaline Phosphatase 102 U/L (40-130); Anion Gap 11.3 (5-19); Aspartate Amino Transferase 16 U/L (0-40); Blood Urea Nitrogen 24 mg/dL (8-23); Calcium 8.4 mg/dL (8.5-10.5); Carbon Dioxide 29 mmol/L (22-29); Chloride 105 mmol/L (98-107); Globulin 3.2 g/dL (1.3-4.6); Glomerular Filtration Rate 55.1 mL/min (90-130); Glucose 113 mg/dL (65-115); Osmolality Calculated 295 mOsm/kg (285-295); Potassium 5.3 mmol/L (3.5-5.1); Sodium 140 mmol/L (136-145); Total Bilirubin 0.4 mg/dL (0.15-1.2); Total Protein 5.9 g/dL (6.6-8.7)
[2022-11-07 04:19] LABS: ABG PCO2 46.6 mmHg (35-45); ABG PH Result 7.44 (7.35-7.45); Arterial Blood Gas Hematocrit 27.9 % (42-52); Base Excess ABG 6.7 mmol/L (-2.0-2.0); Blood Gas Allen Test Pos; Blood Gas Operator Identificat JB; Blood Gas Sample Site Radial, right; Blood Gas Sample Type Arterial; HCO3 ABG 31.6 mmol/L (22-26); Oxygen Device VENT; PO2 ABG 83.6 mmHg (80.0-100.0)
[2022-11-07] MEDS: budesonide 0.5 mg/2 mL Neb INHALATION ×2 (07:44→20:20)
[2022-11-07] MEDS: piperacillin-tazobactam 3.375 GM in sodium chloride 0.9% (plus) 50 ML IV ×3 (08:25→22:22)
[2022-11-07] MEDS: amiodarone 200 mg Tablet PO (08:26)
[2022-11-07] MEDS: pantoprazole 40 mg SDV IVP (08:26)
[2022-11-07] MEDS: nystatin powder 15 gm Btl 1 APPLIC TOPICAL ×2 (08:28→22:23)
[2022-11-07] MEDS: acetaminophen 325 mg Tablet 650 MG PO (08:46)
[2022-11-07] MEDS: insulin regular-human 10 UNIT in SYRINGE 1 EACH IVP (10:51)
[2022-11-07] MEDS: dextrose 5%-sod chloride 0.9% 1,000 ML 75 ML IV (11:06)
--- NOTE | 2022-11-07 15:53 | P.PN_ITS ---
Subjective Subjective: Seen multiple times during the day today. No acute events overnight. Patient has remained hemodynamically stable. Tmax in last 24 hours 99.6 Fahrenheit. Documented urine output in last 24 hours a round 3.9 L. Patient overall 3 L positive. Currently on mechanical ventilation with FiO2 30%, tidal volume of 500 and PEEP of 8. Turned down to pressure support of 10 for most of the day today. Patient worked well with mechanical ventilation at pressure support. Sedation turned down to Precedex and fentanyl. Vitals/I&O/Wt Last Vital Signs Temp 99.6 F 11/07/22 08:00 Pulse 59 L 11/07/22 13:05 Resp 16 11/07/22 15:48 BP 98/52 11/07/22 12:30 Pulse Ox 94 11/07/22 15:48 O2 Del Method 11/07/22 13:05 O2 Flow Rate 4 11/01/22 14:26 FiO2 30 11/07/22 15:48 11/07/22 11/07/22 11/07/22 06:59 14:59 22:59 Intake Total 673.000 / 2616.000 807.5 / 807.5 100.1 / 907.6 Output Total 2220 / 3920 2705 / 2705 Balance -1547.000 / -1304.000 -1897.5 / -1897.5 100.1 / -1797.4 Weight last 48 hrs Weight 153.541 kg Weight 153.541 kg Physical Exam Narrative: General: Intubated, sedated HEENT: PERRLA, pupils bilaterally equal and reactive Chest: Normal vesicular breath sounds, no added sounds, equal good air entry bilaterally CVS: S1-S2 regular, no murmurs, no tachycardia, no gallops, no rubs Abdomen: Distended, surgical drains present, central surgical scar with wound VAC present. Neuro: Intubated, sedated Urinary Catheter Management: Orellana: Cath Placed During This Visit: yes, but has since been removed by the nurse Reason for Continuing Indwelling Catheter: Accurate Measurement of Urinary Output in Critically Ill Patients Urinary Catheter Date of Insertion: 10/15/22 Urinary Catheter Time of Insertion: 13:50 Date Urinary Catheter Removed: 10/10/22 Time Urinary Catheter Discontinued: 17:45 Data 11/06/22 03:24 11/07/22 03:01 Micro: Microbiology 11/05/22 Unknown Gram Stain - Final Peritoneal Fluid Body Fluid Culture - Preliminary Yeast species A&P Assessment and plan (1) Ventilator dependent: Most likely secondary to postoperative status in setting of obstructive sleep apnea, COPD. Difficult to extubate given postoperative status with abdominal wound VAC. Baseline sleep apnea requiring CPAP up to pressure of 12. Noncompliant at home. Extubated to heated high flow on 10/26. Reintubated on 11/01 for OR. Working well with pressure support currently. Oxygen supplementation keeping saturation over 88%. Continue with DuoNebs every 6 hour, budesonide twice daily. Depending on clinical picture within the next 2 to 3 days. Sedation vacation. Turn to MMV mode. 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 Status post resection of colonic anastomosis and end ileostomy formation for wound dehiscence on 10/15. Unfortunately patient started passing large blood clot from the colostomy site on 11/01. Taken back to the OR for colostomy revision and control of bleeding. Post cauterization of rectus sheath. S/P 6 units PRBCs , 3 units of FFP , tranexamic acid, 1 bag platelet. Wound care, diet advancement, anticoagulation as per primary team. (3) Intra-abdominal abscess post-procedure: Seen on CT scan from 10/25. Cultures sent. So far growing yeast. Appreciate ID recommendations. Plan for continuing antibiotics including Zosyn and vancomycin for at least 3 weeks from and repeating CT scan. MISTI drain in place. (4) Pneumonia: Hospital acquired Pneumonia: Patient been complaining of coughing. CTA chest has shown: Consolidation in the right upper lobe, right middle lobe, and right lower lobe. Continue with vancomycin and Zosyn for now. Sputum culture from 11/01 so far negative. (5) Septic shock: Patient met sepsis criteria: Has elevated white cell count, endorgan dysfunction in the presence of TALON, fever, likely intra-abdominal infection as a source, wi th possible pneumonia. Now resolved. Keep mean artery pressure 65, saturation over 90%. MRSA positive, sputum culture from 10/25 growing Klebsiella pneumonia and Anabela albicans. Sensitivities noted. Repeat sputum culture sent on 11/01 so far sterile. Send abscess culture today from drain 3. Antibiotics restarted when taken back to the OR. Currently on vancomycin and meropenem again as per creatinine clearance. Most recently restarted on 11/01. Continue with IV fluids. (6) C. difficile colitis: Positive on 10/26. Continue with oral vancomycin. Plan for continue oral vancomycin at least for 10 days after completion of IV antibiotic course. Monitor colostomy output. (7) TALON (acute kidney injury): Baseline serum creatinine usually around 1. Creatinine seems to be stabilizing around 1.3-1.4 currently. Monitor BMP Avoid nephrotoxic's Monitor intake output charting (8) Obstructive sleep apnea: Not currently using cpap at home due to malfunction of machine. ABG with evidence of hypercapnic hypoxic respiratory failure. Known restrictive lung disease and asbestosis. At baseline uses CPAP at home, unable to utilize BiPAP given abdominal surgery. Currently saturating 93% on supplemental O2, does drop down to 70% on room air. Does not typically use oxygen at home. Continue to use DuoNeb and budesonide scheduled inhalation. No current indication for steroid use. Suspect that patient may have underlying baseline hypoxia and will likely require supplemental O2 at discharge. (9) Hypernatremia: Resolved. (10) Hypertension: Chronic diagnosis, usually on bisoprolol-HCTZ and lisinopril. Goal blood pressure less than 140/90 mmHg with mean over 65. Currently all antihypertensives on hold. Will restart aspirin blood pressures goals. (11) Atrial fibrillation with rapid ventricular response: In a patient with known chronic atrial fibrillation. Currently having episodes of bradycardia. Continue to hold off on metoprolol. on bisoprolol in combination with HCTZ as only rate controlling medication at home. Currently rate controlled with amiodarone 200 mg oral daily. Takes Xarelto at home for anticoagulation. Off anticoagulation as per request from surgical team. Started on prophylaxis Heparin 5000 every 8 hourly. 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 Has myocardial perfusion study on 10/05/22. Ischemic work-up was negative. Currently troponin series additionally negative. No acute ST-T wave changes to suggest acute coronary syndrome. (12) Anemia: Acute blood loss anemia Has received 7 units of PRBC transfusion so far Monitor H&H (13) Hyperkalemia: Now resolved (14) Restrictive lung disease due to kyphoscoliosis: Aware (15) COVID-19: Had COVID in early 08/2022 and was hospitalized in [place] briefly needing oxygen. (16) Pleural effusion: Moderate right-sided pleural effusion: Seen on CT chest Ultrasound chest: Has not shown any significant pocket for thoracentesis Monitor chest x-ray Plan Plan for the day: Continue to work for plan extubation. Continue on pressure support during the day and switching over to full support with ventilation at around 8 PM. Continue with Precedex and fentanyl. Start on D5 NS at 75 cc/h. Monitor BMP daily. Continue with IV antibiotics as per ID. Monitor hemoglobin and transfuse once more than 7. Continue to follow-up sputum and peritoneal fluid cultures. CODE STATUS: Full code DVT prophylaxis: On SCDs Care discussed in detail with patient's primary team, nurse at bedside. Thank you for involving us in care of Mr. Voss. Please call back with any questions. Discharge plan: Given extensive hospitalization with multiple trips to the OR, prolonged intubation patient will most likely require extensive wound care and rehabilitation. Case management alerted. Patient has been declined by multiple SNF. Referral sent to select. Attestations Medical Necessity Statement*: Requires further hospitalization for postoperative care for hemicolectomy, intra-abdominal abscess, ventilator dependent in setting of obstructive sleep apnea with a safe discharge plan is sought. Coding Level of Care Code Critical Care >/= 30 minutes Critical care time (in minutes): 50 The high probability of a clinically significant, sudden or life threatening deterioration, as referenced in this documentation, required my full and direct attention, intervention and personal management. The critical care time shown is in addition to time spent performing any reported separately billable procedures and includes the following: [x] Data and vital sign review and interpretation [x ] Patient assessment, examination and intervention [x] Medication orders and management [x] Patient/Family updates as able [x] Care Coordination and Documentation. Diagnoses Ventilator dependent Z99.11 Status post left hemicolectomy Z90.49 Intra-abdominal abscess post-procedure T81.43XA Pneumonia J18.9 Septic shock A41.9; R65.21 C. difficile colitis A04.72 TALON (acute kidney injury) N17.9 Obstructive sleep apnea G47.33 Hypernatremia E87.0 Hypertension I10 Atrial fibrillation with rapid ventricular response I48.91 Anemia D64.9 Hyperkalemia E87.5 Restrictive lung disease due to kyphoscoliosis J98.4; M41.9 COVID-19 U07.1 Pleural effusion J90
--- NOTE | 2022-11-07 18:26 | PC.NURSE ---
Wound Vac Wound Vac changed using sterile technique. No leaks detected after placement.
--- NOTE | 2022-11-07 19:09 | PM.PN ---
Subjective Subjective: Patient remains intubated and sedated. He is tolerating tube feeds at goal and has good ostomy output. Vitals/I&O/Wt Last Vital Signs Temp 99.8 F H 11/07/22 16:00 Pulse 68 11/07/22 18:00 Resp 18 11/07/22 17:10 BP 99/51 11/07/22 18:00 Pulse Ox 94 11/07/22 18:00 O2 Del Method 11/07/22 13:05 O2 Flow Rate 4 11/01/22 14:26 FiO2 30 11/07/22 18:00 11/07/22 11/07/22 11/07/22 06:59 14:59 22:59 Intake Total 673.000 / 2616.000 807.5 / 807.5 1454.1 / 2261.6 Output Total 2220 / 3920 2705 / 2705 900 / 3605 Balance -1547.000 / -1304.000 -1897.5 / -1897.5 554.1 / -1343.4 Weight last 48 hrs Weight 338 lb 8 oz Weight 338 lb 8 oz Physical Exam Narrative: General: No acute distress, intubated and sedated s Abdomen, soft, nondistended, wound VAC in place with serosanguineous output,, no grimace to palpation wound measures 30 cm x 9 cm x 3 cm deep drain 3 purulent with minimal output Urinary Catheter Management: Orellana: Cath Placed During This Visit: yes, but has since been removed by the nurse Reason for Continuing Indwelling Catheter: Accurate Measurement of Urinary Output in Critically Ill Patients Urinary Catheter Date of Insertion: 10/15/22 Urinary Catheter Time of Insertion: 13:50 Date Urinary Catheter Removed: 10/10/22 Time Urinary Catheter Discontinued: 17:45 Data 11/06/22 03:24 11/07/22 03:01 Micro: Microbiology 11/05/22 Unknown Gram Stain - Final Peritoneal Fluid Body Fluid Culture - Preliminary Yeast species A&P Assessment and plan (1) Colon cancer: (2) Status post left hemicolectomy: (3) C. difficile colitis: (4) Intra-abdominal collection: (5) Pneumonia: (6) Pleural effusion: (7) Anemia: (8) TALON (acute kidney injury): Plan Status post left hemicolectomy for colon cancer at the splenic flexure Status post resection of colonic anastomosis and end ileostomy formation due to anastomotic leak Status post control of hemorrhage from right rectus muscle and colostomy revision Tube feeds with Osmolite at 60 cc/h Wound VAC change MWF Drain #3 abuts intraabdominal fluid collection Hospitalist following-appreciate input will consult infectious disease Attestations Medical Necessity Statement*: Requires further hospitalization for postoperative care for hemicolectomy, intra-abdominal abscess, ventilator dependent in setting of obstructive sleep apnea with a safe discharge plan is sought. Coding Level of Care Code Acute Code for [facility] Fwd Diagnoses Colon cancer C18.9 Status post left hemicolectomy Z90.49 C. difficile colitis A04.72 Intra-abdominal collection R18.8 Pneumonia J18.9 Pleural effusion J90 Anemia D64.9 TALON (acute kidney injury) N17.9
[2022-11-07] MEDS: trazodone 150 mg Tablet 300 MG PO (22:21)
[2022-11-08] VITALS (46 sets, daily range): BP systolic 89–131; BP diastolic 49–79; PULSE 61–87; RESP 14–21; TEMP 37–37.5; O2SAT 91–100
[2022-11-08] MEDS: dextrose 5%-sod chloride 0.9% 1,000 ML 75 ML IV (00:46)
[2022-11-08] MEDS: dexmedetomidine 400 MCG in sodium chloride 0.9% (100 ml) 100 ML 15.96 MCG IV ×2 (00:46→09:12)
[2022-11-08] MEDS: heparin 5,000 unit/mL INJ 1 mL 5000 UNIT SUBCUT ×3 (02:14→18:47)
[2022-11-08] MEDS: levalbuterol 0.63 mg/3 mL Neb INHALATION ×4 (03:04→20:10)
[2022-11-08 04:04] LABS: Basophils % 0.5 %; Eosinophils # 0.4 10^3/uL (0.0-0.8); Eosinophils % 6.8 %; Hematocrit 25.1 % (42.0-52.0); Hemoglobin 7.5 g/dL (11.7-16.6); Lymphocytes # 1.1 10^3/uL (0.8-4.8); Lymphocytes % 17.5 %; Mean Corpuscular HGB Conc 29.9 g/dL (30.0-36.0); Mean Corpuscular Hemoglobin 29.6 pg (28.0-34.0); Mean Corpuscular Volume 99.2 fl (80-94); Mean Platelet Volume 11.2 fL (7.4-10.4); Monocytes % 15.7 %; Neutrophils # 3.61 10^3/uL (1.8-7.7); Neutrophils % 58.5 %; Nucleated Red Blood Cells % 0 %; Platelet Count 202 10^3/cmm (130-400); Red Blood Count 2.53 10^6/uL (4.1-5.3); Red Cell Distribution Width 16.3 % (12.1-15.1); White Blood Count 6.2 10^3/uL (4.0-10.0)
[2022-11-08 04:21] LABS: Alanine Aminotransferase 19 U/L (0-41); Albumin Level 2.3 g/dL (3.5-5.2); Alkaline Phosphatase 100 U/L (40-130); Anion Gap 11.8 (5-19); Aspartate Amino Transferase 18 U/L (0-40); Blood Urea Nitrogen 26 mg/dL (8-23); Calcium 8.5 mg/dL (8.5-10.5); Carbon Dioxide 29 mmol/L (22-29); Chloride 105 mmol/L (98-107); Globulin 3.4 g/dL (1.3-4.6); Glomerular Filtration Rate 55.1 mL/min (90-130); Glucose 141 mg/dL (65-115); Osmolality Calculated 299 mOsm/kg (285-295); Potassium 4.8 mmol/L (3.5-5.1); Sodium 141 mmol/L (136-145); Total Bilirubin 0.4 mg/dL (0.15-1.2); Total Protein 5.7 g/dL (6.6-8.7)
[2022-11-08 05:00] LABS: ABG PCO2 47.3 mmHg (35-45); ABG PH Result 7.42 (7.35-7.45); Arterial Blood Gas Hematocrit 26.1 % (42-52); Base Excess ABG 5.6 mmol/L (-2.0-2.0); Blood Gas Allen Test Pos; Blood Gas Operator Identificat JB; Blood Gas Sample Site Radial, right; Blood Gas Sample Type Arterial; HCO3 ABG 30.7 mmol/L (22-26); Oxygen Device VENT; PO2 ABG 77.6 mmHg (80.0-100.0)
--- NOTE | 2022-11-08 06:00 | XR_ITS ---
WS: [id number] XR chest 1V portable [id number] REASON FOR EXAM: intubated FINDINGS: Endotracheal tube and nasogastric tube remain in proper position. Properly positioned right arm PICC line. Central venous vascular congestion and cardiomegaly. Unchanged opacity in the lower right hemithorax compatible with atelectasis and pleural effusion. Unchanged opacification in the left lower hemithorax, presumed atelectasis and airspace consolidation . Also probable left pleural effusion. XR/XR chest 1V portable [id number] IMPRESSION: Stable abnormal chest.
[2022-11-08] MEDS: piperacillin-tazobactam 3.375 GM in sodium chloride 0.9% (plus) 50 ML IV ×3 (06:01→22:52)
[2022-11-08] MEDS: pantoprazole 40 mg SDV IVP (07:46)
[2022-11-08] MEDS: amiodarone 200 mg Tablet PO (07:46)
[2022-11-08] MEDS: nystatin powder 15 gm Btl 1 APPLIC TOPICAL ×2 (07:47→20:28)
[2022-11-08] MEDS: budesonide 0.5 mg/2 mL Neb INHALATION ×2 (09:13→20:10)
--- NOTE | 2022-11-08 10:49 | P.PN_ITS ---
Subjective Subjective: Infectious disease progress note. Patient continues to be intubated, on Precedex and fentanyl. He wakes up to calling name, however does not consistently follow commands. He is afebrile, hemodynamically stable. Medications: Reviewed: Yes Medication Review Details: Meropenem 500 mg iv q8h 10/18- current Vancomycin 2g iv q24h 11/04- 11/08 Vancomycin 125 mg po QID 10/26- Fluconazole 100 mg PO 11/08- Prior: Zosyn 10/09-10/18 iv vancomycin 10/18-10/25 Fluconazole 10/25- Vitals/I&O/Wt Last Vital Signs Temp 98.6 F 11/08/22 08:00 Pulse 66 11/08/22 09:18 Resp 14 11/08/22 09:10 BP 99/55 11/08/22 08:00 Pulse Ox 95 11/08/22 09:10 O2 Del Method 11/08/22 09:10 O2 Flow Rate 4 11/01/22 14:26 FiO2 30 11/08/22 09:10 11/07/22 11/08/22 11/08/22 22:59 06:59 14:59 Intake Total 1554.1 / 2361.6 1154 / 3515.6 957 / 957 Output Total 900 / 3605 2050 / 5655 Balance 654.1 / -1243.4 -896 / -2139.4 957 / 957 Weight last 48 hrs Weight 154.023 kg Weight 153.541 kg Physical Exam Narrative: General: intubated, sedated HEENT: PERRLA, pupils bilaterally equal and reactive, pallors not present Chest: Normal vesicular breath sounds, no added sounds, equal good air entry bilaterally CVS: S1-S2 regular, no murmurs, no tachycardia, no gallops, no rubs Abdomen: Neuro: intubated, sedated ext: Right PICC placed 11/05/22 Urinary Catheter Management: Orellana: Cath Placed During This Visit: yes, but has since been removed by the nurse Reason for Continuing Indwelling Catheter: Accurate Measurement of Urinary Output in Critically Ill Patients Urinary Catheter Date of Insertion: 10/15/22 Urinary Catheter Time of Insertion: 13:50 Date Urinary Catheter Removed: 10/10/22 Time Urinary Catheter Discontinued: 17:45 Data 11/08/22 03:24 11/08/22 03:24 Micro: Microbiology 11/05/22 Unknown Gram Stain - Final Peritoneal Fluid Body Fluid Culture - Preliminary Yeast species A&P Assessment and plan (1) Intra-abdominal collection: Patient with HPI and complicated hospital course as as per consult note on November 06, 2022 Currently ID following for intra abdominal abscess, first described on CT from 10/25/22. On serial CT assessment, abscess appears to be persistent though slightly reduced in size Patient has abdominal peritoneal drain in place however this drain is not currently in the abscess cavity at this time. Patient has had multiple abdominal interventions this admission, for now, no further open interventions are planned. Abscess not amenbale to IR guided drainage due to anatomy Currently on treatment with meropenem and vancomycin Blood cx remain negative to date MISTI drain cx thus far with yeast preliminarily Clinically patient is stable off pressors, planned for transfer to LTAC. He is afebrile and hemodynamically stable . leukocytosis has trended down from a peak of 24K. Given current clinical improvement on conservative management, plan to continue iv abx with serial abdominal imaging 2-3 weeks down the line to follow up on interval improvement of abscess. Previously on meropenem, now on Zosyn, recommend to treat over the next 2 weeks and obtain serial Ct abdomen to ensure continued improvement. Final duration of abx will be dependent on radiological response and clinical course. 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 (2) C. difficile colitis: Continue po vancomycin until remains on iv abx (3) Septic shock: now resolved (4) Status post left hemicolectomy: Attestations Medical Necessity Statement*: per admitting note Coding Level of Care Code Acute Code for [facility] Fwd Diagnoses Intra-abdominal collection R18.8 C. difficile colitis A04.72 Septic shock A41.9; R65.21 Status post left hemicolectomy Z90.49
[2022-11-08] MEDS: fluconazole premix 100 MG in empty flexible container 1 EACH 50 MG IV (12:12)
--- NOTE | 2022-11-08 13:15 | PC.SOCIAL ---
IMM update IMM not updated as patient is currently intubated.
[2022-11-08] MEDS: dextrose 5%-sod chloride 0.9% 1,000 ML 100 ML IV ×2 (13:36→23:48)
[2022-11-08] MEDS: acetaminophen 325 mg Tablet 650 MG PO (13:40)
[2022-11-08] MEDS: dexmedetomidine 400 MCG in sodium chloride 0.9% (100 ml) 100 ML 23.95 MCG IV ×3 (14:38→18:41)
--- NOTE | 2022-11-08 16:29 | P.PN_ITS ---
Subjective Subjective: No acute events overnight. Today morning on examination patient seen on Precedex of 0.6 and fentanyl 75. Patient does laying comfortably in bed. Wakes up to verbal and physical stimulus. Stated she feels as if there is a chicken stuck at the back of his throat. Fentanyl increased slightly for better analgesia. Documented urine output in last 24 hours around 5.6 L. Patient is overall 3 L positive. Has remained hemodynamically stable and afebrile. On pressure support of 10 during examination. Medications: Reviewed: Yes Medication Review Details: Meropenem 500 mg iv q8h 10/18- current Vancomycin 2g iv q24h 11/04- 11/08 Vancomycin 125 mg po QID 10/26- Fluconazole 100 mg PO 11/08- Prior: Zosyn 10/09-10/18 iv vancomycin 10/18-10/25 Fluconazole 10/25- Vitals/I&O/Wt Last Vital Signs Temp 98.6 F 11/08/22 08:00 Pulse 74 11/08/22 15:30 Resp 15 11/08/22 15:30 BP 127/71 11/08/22 15:30 Pulse Ox 94 11/08/22 15:30 O2 Del Method 11/08/22 15:30 O2 Flow Rate 4 11/01/22 14:26 FiO2 30 11/08/22 15:30 11/08/22 11/08/22 11/08/22 06:59 14:59 22:59 Intake Total 1154 / 3515.6 1390.716 / 1390.716 13.572 / 1404.288 Output Total 2050 / 5655 150 / 150 Balance -896 / -2139.4 1240.716 / 1240.716 13.572 / 1254.288 Weight last 48 hrs Weight 154.023 kg Weight 153.541 kg Physical Exam Narrative: General: Intubated, sedated HEENT: PERRLA, pupils bilaterally equal and reactive Chest: Normal vesicular breath sounds, no added sounds, equal good air entry bilaterally CVS: S1-S2 regular, no murmurs, no tachycardia, no gallops, no rubs Abdomen: Distended, surgical drains present, central surgical scar with wound VAC present. Neuro: Intubated, sedated Urinary Catheter Management: Orellana: Cath Placed During This Visit: yes, but has since been removed by the nurse Reason for Continuing Indwelling Catheter: Accurate Measurement of Urinary Output in Critically Ill Patients Urinary Catheter Date of Insertion: 10/15/22 Urinary Catheter Time of Insertion: 13:50 Date Urinary Catheter Removed: 10/10/22 Time Urinary Catheter Discontinued: 17:45 Data 11/08/22 03:24 11/08/22 03:24 Micro: Microbiology 11/05/22 Unknown Gram Stain - Final Peritoneal Fluid Body Fluid Culture - Preliminary Yeast species A&P Assessment and plan (1) Ventilator dependent: Most likely secondary to postoperative status in setting of obstructive sleep apnea, COPD. Difficult to extubate given postoperative status with abdominal wound VAC. Baseline sleep apnea requiring CPAP up to pressure of 12. Noncompliant at home. Extubated to heated high flow on 10/26. Reintubated on 11/01 for OR. Working well with pressure support currently. Oxygen supplementation keeping saturation over 88%. Continue with DuoNebs every 6 hour, budesonide twice daily. Depending on clinical picture within the next 2 to 3 days. Sedation vacation. Turn to MMV mode. 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 Status post resection of colonic anastomosis and end ileostomy formation for wound dehiscence on 10/15. Unfortunately patient started passing large blood clot from the colostomy site on 11/01. Taken back to the OR for colostomy revision and control of bleeding. Post cauterization of rectus sheath. S/P 6 units PRBCs , 3 units of FFP , tranexamic acid, 1 bag platelet. Wound care, diet advancement, anticoagulation as per primary team. (3) Intra-abdominal abscess post-procedure: Seen on CT scan from 10/25. Cultures sent. So far growing yeast. Appreciate ID recommendations. Plan for continuing antibiotics including Zosyn and vancomycin for at least 3 weeks from and repeating CT scan. MISTI drain in place. (4) Pneumonia: Hospital acquired Pneumonia: Patient been complaining of coughing. CTA chest has shown: Consolidation in the right upper lobe, right middle lobe, and right lower lobe. Continue with vancomycin and Zosyn for now. Sputum culture from 11/01 so far negative. (5) Septic shock: Patient met sepsis criteria: Has elevated white cell count, endorgan dysfunction in the presence of TALON, fever, likely intra-abdominal infection as a source, with possible pneumonia. Now resolved. Keep mean artery pressure 65, saturation over 90%. MRSA positive, sputum culture from 10/25 growing Klebsiella pneumonia and Anabela albicans. Sensitivities noted. Repeat sputum culture sent on 11/01 so far sterile. Send abscess culture today from drain 3. Antibiotics restarted when taken back to the OR. Currently on vancomycin and meropenem again as per creatinine clearance. Most recently restarted on 11/01. Continue with IV fluids. (6) C. difficile colitis: Positive on 10/26. Continue with oral vancomycin. Plan for continue oral vancomycin at least for 10 days after completion of IV antibiotic course. Monitor colostomy output. (7) TALON (acute kidney injury): Baseline serum creatinine usually around 1. Creatinine seems to be stabilizing around 1.3-1.4 currently. Monitor BMP Avoid nephrotoxic's Monitor intake output charting (8) Obstructive sleep apnea: Not currently using cpap at home due to malfunction of machine. ABG with evidence of hypercapnic hypoxic respiratory failure. Known restrictive lung disease and asbestosis. At baseline uses CPAP at home, unable to utilize BiPAP given abdominal surgery. Currently saturating 93% on supplemental O2, does drop down to 70% on room air. Does not typically use oxygen at home. Continue to use DuoNeb and budesonide scheduled inhalation. No current indication for steroid use. Suspect that patient may have underlying baseline hypoxia and will likely require supplemental O2 at discharge. (9) Hypernatremia: Resolved. (10) Hypertension: Chronic diagnosis, usually on bisoprolol-HCTZ and lisinopril. Goal blood pressure less than 140/90 mmHg with mean over 65. Currently all antihypertensives on hold. Will restart aspirin blood pressures goals. (11) Atrial fibrillation with rapid ventricular response: In a patient with known chronic atrial fibrillation. Currently having episodes of bradycardia. Continue to hold off on metoprolol. on bisoprolol in combination with HCTZ as only rate controlling medication at home. Currently rate controlled with amiodarone 200 mg oral daily. Takes Xarelto at home for anticoagulation. Off anticoagulation as per request f rom surgical team. Started on prophylaxis Heparin 5000 every 8 hourly. 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 Has myocardial perfusion study on 10/05/22. Ischemic work-up was negative. Currently troponin series additionally negative. No acute ST-T wave changes to suggest acute coronary syndrome. (12) Anemia: Acute blood loss anemia Has received 7 units of PRBC transfusion so far Monitor H&H (13) Hyperkalemia: Now resolved (14) Restrictive lung disease due to kyphoscoliosis: Aware (15) COVID-19: Had COVID in early 08/2022 and was hospitalized in [place] briefly needing oxygen. (16) Pleural effusion: Moderate right-sided pleural effusion: Seen on CT chest Ultrasound chest: Has not shown any significant pocket for thoracentesis Monitor chest x-ray Plan Plan for the day: Continue pressure support for 1 more day. Plan for extubation later tomorrow if patient remains hemodynamically stable and working well with mechanical ventilation. Plan to continue with Precedex and fentanyl for now. We will extubate to Precedex. Increase D5 NS to 100 cc/h. Monitor BMP daily. Vancomycin stopped. Oral fluconazole started as per ID. Continue with meropenem. Can plan to continue antimicrobials for at least 3 weeks since 10/25. Monitor hemoglobin. Transfuse once less than 7. CODE STATUS: Full code DVT prophylaxis: On thousand every 12 hourly. Care discussed in detail with patient's primary team, nurse at bedside. Thank you for involving us in care of Mr. Voss. Please call back with any questions. Discharge plan: Given extensive hospitalization with multiple trips to the OR, prolonged intubation patient will most likely require extensive wound care and rehabilitation along with IV antibiotics to finish a 3-week course and a repeat CT scan afterwards to further characterize intra-abdominal collections. Case management alerted. Patient has been declined by multiple SNF. Referral sent to [facility]. Have tried to do peer to peer for transfer to [facility]. Unable to reach any provider at the insurance. Have left a voice message. Awaiting callback. Attestations Medical Necessity Statement*: Requires further hospitalization for ventilator dependent respiratory failure in setting of postoperative status for hemicolectomy, obstructive sleep apnea and restrictive lung disease, intra- abdominal abscess on prolonged IV antibiotics, surgical abdominal wound care with wound VAC in place Coding Level of Care Code Critical Care >/= 30 minutes Critical care time (in minutes): 60 The high probability of a clinically significant, sudden or life threatening deterioration, as referenced in this documentation, required my full and direct attention, intervention and personal management. The critical care time shown is in addition to time spent performing any reported separately billable procedures and includes the following: [x] Data and vital sign review and interpretation [x ] Patient assessment, examination and intervention [x] Medication orders and management [x] Patient/Family updates as able [x] Care Coordination and Documentation. Diagnoses Ventilator dependent Z99.11 Status post left hemicolectomy Z90.49 Intra-abdominal abscess post-procedure T81.43XA Pneumonia J18.9 Septic shock A41.9; R65.21 C. difficile colitis A04.72 TALON (acute kidney injury) N17.9 Obstructive sleep apnea G47.33 Hypernatremia E87.0 Hypertension I10 Atrial fibrillation with rapid ventricular response I48.91 Anemia D64.9 Hyperkalemia E87.5 Restrictive lung disease due to kyphoscoliosis J98.4; M41.9 COVID-19 U07.1 Pleural effusion J90
--- NOTE | 2022-11-08 18:12 | P.PN_ITS ---
Subjective Subjective: Patient remains intubated and sedated. He is tolerating tube feeds at goal and has good ostomy output. Vitals/I&O/Wt Last Vital Signs Temp 98.6 F 11/08/22 08:00 Pulse 80 11/08/22 17:00 Resp 21 H 11/08/22 17:17 BP 130/79 11/08/22 16:30 Pulse Ox 92 11/08/22 17:17 O2 Del Method 11/08/22 17:00 O2 Flow Rate 4 11/01/22 14:26 FiO2 30 11/08/22 17:17 11/08/22 11/08/22 11/08/22 06:59 14:59 22:59 Intake Total 1154 / 3515.6 1390.716 / 1390.716 13.572 / 1404.288 Output Total 2050 / 5655 150 / 150 Balance -896 / -2139.4 1240.716 / 1240.716 13.572 / 1254.288 Weight last 48 hrs Weight 339 lb 9 oz Weight 338 lb 8 oz Physical Exam Narrative: General: No acute distress, intubated and sedated s Abdomen, soft, nondistended, wound VAC in place with serosanguineous output,, no grimace to palpation drain 3 purulent with minimal output Urinary Catheter Management: Orellana: Cath Placed During This Visit: yes, but has since been removed by the nurse Reason for Continuing Indwelling Catheter: Accurate Measurement of Urinary Output in Critically Ill Patients Urinary Catheter Date of Insertion: 10/15/22 Urinary Catheter Time of Insertion: 13:50 Date Urinary Catheter Removed: 10/10/22 Time Urinary Catheter Discontinued: 17:45 Data 11/08/22 03:24 11/08/22 03:24 Micro: Microbiology 11/05/22 Unknown Gram Stain - Final Peritoneal Fluid Body Fluid Culture - Preliminary Yeast species A&P Assessment and plan (1) Colon cancer: (2) Status post left hemicolectomy: (3) C. difficile colitis: (4) Intra-abdominal collection: (5) Pneumonia: (6) Pleural effusion: (7) Anemia: (8) TALON (acute kidney injury): Plan Status post left hemicolectomy for colon cancer at the splenic flexure Status post resection of colonic anastomosis and end ileostomy formation due to anastomotic leak Status post control of hemorrhage from right rectus muscle and colostomy revision Tube feeds with Osmolite at 60 cc/h Wound VAC change MWF Drain #3 abuts intraabdominal fluid collection Hospitalist following-appreciate input infectious disease following-appreciate input He has been accepted to [facility] as a bed is available Attestations Medical Necessity Statement*: Requires further hospitalization for ventilator dependent respiratory failure in setting of postoperative status for hemicolectomy, obstructive sleep apnea and restrictive lung disease, intra- abdominal abscess on prolonged IV antibiotics, surgical abdominal wound care with wound VAC in place Coding Level of Care Code Acute Code for Chg Fwd Diagnoses Colon cancer C18.9 Status post left hemicolectomy Z90.49 C. difficile colitis A04.72 Intra-abdominal collection R18.8 Pneumonia J18.9 Pleural effusion J90 Anemia D64.9 TALON (acute kidney injury) N17.9
[2022-11-08] MEDS: trazodone 150 mg Tablet 300 MG PO (20:25)
[2022-11-08] MEDS: dexmedetomidine 400 MCG in sodium chloride 0.9% (100 ml) 100 ML 47.89 MCG IV (21:38)
[2022-11-09] VITALS (23 sets, daily range): BP systolic 102–128; BP diastolic 56–72; PULSE 55–76; RESP 16–22; TEMP 36.7–36.8; O2SAT 93–100
[2022-11-09] MEDS: heparin 5,000 unit/mL INJ 1 mL 5000 UNIT SUBCUT ×2 (02:01→10:08)
[2022-11-09] MEDS: levalbuterol 0.63 mg/3 mL Neb INHALATION ×3 (02:54→14:20)
[2022-11-09 04:55] LABS: Basophils % 0.3 %; Eosinophils # 0.4 10^3/uL (0.0-0.8); Eosinophils % 6.9 %; Hematocrit 26.3 % (42.0-52.0); Hemoglobin 7.7 g/dL (11.7-16.6); Lymphocytes % 17.1 %; Mean Corpuscular HGB Conc 29.3 g/dL (30.0-36.0); Mean Corpuscular Hemoglobin 29.1 pg (28.0-34.0); Mean Corpuscular Volume 99.2 fl (80-94); Mean Platelet Volume 10.7 fL (7.4-10.4); Monocytes % 16.6 %; Neutrophils # 3.48 10^3/uL (1.8-7.7); Neutrophils % 58.6 %; Nucleated Red Blood Cells % 0 %; Platelet Count 217 10^3/cmm (130-400); Red Blood Count 2.65 10^6/uL (4.1-5.3); Red Cell Distribution Width 15.9 % (12.1-15.1)
[2022-11-09 05:14] LABS: Alanine Aminotransferase 21 U/L (0-41); Albumin Level 2.4 g/dL (3.5-5.2); Alkaline Phosphatase 105 U/L (40-130); Anion Gap 8.8 (5-19); Aspartate Amino Transferase 21 U/L (0-40); Blood Urea Nitrogen 24 mg/dL (8-23); Calcium 8.8 mg/dL (8.5-10.5); Carbon Dioxide 30 mmol/L (22-29); Chloride 105 mmol/L (98-107); Globulin 3.3 g/dL (1.3-4.6); Glomerular Filtration Rate 60.4 mL/min (90-130); Glucose 132 mg/dL (65-115); Osmolality Calculated 294 mOsm/kg (285-295); Potassium 4.8 mmol/L (3.5-5.1); Sodium 139 mmol/L (136-145); Total Bilirubin 0.3 mg/dL (0.15-1.2); Total Protein 5.7 g/dL (6.6-8.7)
[2022-11-09] MEDS: piperacillin-tazobactam 3.375 GM in sodium chloride 0.9% (plus) 50 ML IV (06:10)
[2022-11-09] MEDS: budesonide 0.5 mg/2 mL Neb INHALATION (07:55)
--- NOTE | 2022-11-09 09:46 | PC.SOCIAL ---
IMM update IMM updated with patient's Kusum. Verbalized an understanding. Initialled, dated, timed, and placed in chart.
[2022-11-09] MEDS: dextrose 5%-sod chloride 0.9% 1,000 ML 100 ML IV (10:06)
[2022-11-09] MEDS: pantoprazole 40 mg SDV IVP (10:08)
[2022-11-09] MEDS: amiodarone 200 mg Tablet PO (10:09)
[2022-11-09] MEDS: nystatin powder 15 gm Btl 1 APPLIC TOPICAL (10:11)
--- NOTE | 2022-11-09 10:16 | PC.CHAP ---
Pastoral Care Encounter/Spiritual Assessment Type of Contact [] Declined director of corporate marketing visit [] Patient/Family/Request visit [] Outpatient visit [] Follow-up visit [] Physician referral [] Code/Alert [x] Routine visit [] Staff referral [] Actively dying [x] Patient sleeping [] Family support [] [] Out of room [] Palliative care [] [] Receiving care in room [] Pre-surgical visit [] Trauma [] Long length of stay [x] ICU visit [x] Other: we continue to visit PT.. he sometimes responds with hand movement acknowledging he realizes we are present Relational/Emotional Strength [] Patient feels connected with others/family/visitors/staff [] Distress [] Loneliness/isolation [] Abandonment Spirituality of Patient [] Person of Maryanne [] Attends Pentecostalism of their Maryanne [] Believes in Prayer [] Reads Bible or Restoration materials [] There are Spiritual issues to be addressed Post Framer 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 [x] Prayer [] Active listening [] Non-anxious presence [] Spiritual/emotional support [] Crisis/trauma care [] Spiritual counseling [] Bereavement support [] Provided bereavement packet [] Provided Bible/devotional materials [] Provided toy/stuffed animal, coloring book to patient or family member [] Provided Communion [] Anointing/[place] [] Salvation [x] Completed spiritual assessment [] Other: Impact on Illness or Injury [] Angry [] Fearful [] Anxious [] Often cries [] Exhaustion [] Unable to work [] Unable to attend zoroastrianism [] Unable to walk/stand [] Unable to read [] Unable to drive [] Unable to eat/drink [] Unable to sleep [] Unable to be with family [] Patient intubated [] Other: Summary Time spent with patient
--- NOTE | 2022-11-09 11:02 | PC.NUTR ---
Pt is allergic to oats and current formula Jevity 1.2 has oat fiber. Will switch to Pulmocare 1.5 since Osmolite 1.2 is out of stock and Glucerna 1.2 also has oat fiber. Recommend Pulmocare 1.5 with a goal rate of 45 mls/hr with fresh water flushes of 120-150 mls Q4H or per MD discretion. Details in RD assessment.
--- NOTE | 2022-11-09 11:15 | PC.NURSE ---
, Kusum, called and notified of patient being transferred to [facility] today. Understanding that we will leave him on the ventilator.
--- NOTE | 2022-11-09 12:14 | PM.DCS ---
Discharge Providers Date of Admission: 10/08/22 13:46 Date of Discharge: November 09, 2022 Attending Provider at Admission: Isaias Soares DO Attending Provider at Discharge: Isaias Soares DO Consults: medicine infectious disease Primary Care Provider: Al Álvarez MD Diagnoses at Discharge Discharge Diagnosis (1) Colon cancer: Status: Acute (2) Status post left hemicolectomy: Status: Acute (3) C. difficile colitis: Status: Acute (4) Intra-abdominal collection: Status: Acute (5) Pneumonia: Status: Acute (6) Pleural effusion: Status: Acute (7) Anemia: Status: Acute (8) TALON (acute kidney injury): Status: Acute Reason for Visit Reason for Visit: K76.9, C18.9 Brief History: colon cancer at splenic flexure Physical Exam Urinary Catheter Management: Orellana: Cath Placed During This Visit: yes, but has since been removed by the nurse Reason for Continuing Indwelling Catheter: Accurate Measurement of Urinary Output in Critically Ill Patients Urinary Catheter Date of Insertion: 10/15/22 Urinary Catheter Time of Insertion: 13:50 Date Urinary Catheter Removed: 10/10/22 Time Urinary Catheter Discontinued: 17:45 Discharge Data Studies Completed and Pending Completed Studies During Hospitalization Category Date Time Status CT abdomen pelvis w con* [id number] Routine Cat Scan 10/25/22 10:[address] abdomen pelvis w con* [id number] Stat Cat Scan 10/15/22 07:[address] abdomen pelvis wo con 51903 Routine Cat Scan 10/18/22 09:[address] angio chest w abd pel w con Routine Cat Scan 11/01/22 11:[address] head wo con* [id number] Routine Cat Scan 10/28/22 10:[address] head wo con* [id number] Routine Cat Scan 10/31/22 15:43 Completed CXRP [XR chest 1V portable [id number]] Routine Exams 10/10/22 08:51 Completed CXRP [XR chest 1V portable [id number]] Routine Exams 10/16/22 11:49 Completed CXRP [XR chest 1V portable 76385] Routine Exams 10/16/22 13:01 Completed CXRP [XR chest 1V portable 27724] Routine Exams 11/05/22 11:38 Completed CXRP [XR chest 1V portable [id number]] Stat Exams 11/01/22 17:16 Completed CXRP [XR chest 1V portable 24198] Stat Exams 11/01/22 19:08 Completed XR KUB portable [id number] Stat Exams 10/19/22 22:33 Completed XR chest 1V portable [id number] QAM Exams 11/06/22 06:00 Completed XR chest 1V portable [id number] QAM Exams 11/08/22 06:00 Completed XR chest 1V portable [id number] Routine Exams 10/15/22 17:40 Completed XR chest 1V portable 19507 Routine Exams 10/20/22 13:43 Completed XR chest 1V portable [id number] Routine Exams 11/04/22 07:44 Completed XR chest 1V portable [id number] Urgent Exams 10/08/22 21:20 Completed XR chest 1V portable [id number] Urgent Exams 11/07/22 00:48 Completed Pathology: Surgical [PTH] Routine Pth 10/08/22 13:01 Completed Pathology: Surgical [PTH] Routine Pth 10/15/22 17:00 Completed [place] chest [id number] Routine Ultrasound 10/25/22 14:03 Com[place] chest [id number] Routine Ultrasound 11/01/22 16:22 Completed Pending at discharge Category Date Time Status ABG FULL [Arterial Blood Gas Full] AM LABS Lab 11/04/22 04:00 Results Complete Blood Count w/Auto AM LABS Lab 11/10/22 04:00 Ordered Sputum Culture and Gram Stain Stat Lab 10/25/22 10:19 Uncollected Radiology Impressions KUB X-Ray 10/19/22 22:33 IMPRESSION: Limited portable exam. Abdomen/Pelvis CT 10/25/22 10:30 IMPRESSION: 1. Small RIGHT pleural effusion. 2. Bilateral segmental lower lobe atelectasis and RIGHT middle lobe partial atelectasis. 3. New foci of air in the RIGHT lower quadrant colostomy site. This air was not present on 10/18/2022. Close observation for possible new ischemic changes at the colostomy site. 4. Central pelvic collection measures 8.6 x 3.3 cm. Differential includes a small central abscess versus seroma or hematoma. Recommend close follow-up. This may be difficult for image guided aspiration due to the patient's body habitus and deep position. 5. Nasogastric tube in good position. 6. No free air is appreciated. Head CT 10/31/22 15:43 IMPRESSION: No acute intracranial abnormality. Chest/Abdomen/Pelvis CT 11/01/22 11:22 IMPRESSION: 1. Large 5.2 cm left thyroid nodule with recommendation for nonemergent thyroid ultrasound to rule out neoplasm. 2. Moderate right pleural fluid collection. 3. Compressive atelectasis and pneumonia in the right upper lobe, right middle lobe and right lower lobe. IMPRESSION: 1. Orellana balloon catheter in the urinary bladder. 2. Rectal stump filled with barium. 3. Interval resolution of previously noted air bubbles near the right lower quadrant colostomy with continued inflammation in surrounding fat and soft tissues. 4. Mildly decreased size of 7.1 x 2.7 x 3.4 cm loculated fluid collection or loop of bowel in the mid lower abdomen/upper pelvis compared with previous measurement of 8.4 x 3.1 x 3.6 cm. Axial series 6, images 51-63. Sagittal series 16, images 44-53. Coronal series 15, images 62-56. 5. Apparent increased size of 6.7 x 6.1 x 2.4 cm lesion measuring 23 Hounsfield units in the region of the right rectus muscle, medial and inferior to the right lower quadrant colostomy suggesting possible complex fluid collection with or without infection. Density would be suggestive of unclotted blood versus other complex fluid collection. Axial series 6, images 54-69. 6. Stable 2 left-sided percutaneous peritoneal drainage catheters. COMMENTS: Consistent with the [employer] [place] [employer]'s Incidental Findings Committee white paper (J Am Dg Radiol 2018): Any incidental renal lesion less than 1 cm or classified as too small to characterize, or any incidental cystic renal lesion characterized as simple-appearing, is likely benign. No follow-up imaging is recommended for these lesions per consensus recommendations based on imaging criteria. Chest Ultrasound 11/01/22 16:22 IMPRESSION: Small RIGHT pleural effusion. Appears decreased as compared to the prior ultrasound. Chest X-Ray 11/08/22 06:00 IMPRESSION: Stable abnormal chest. Laboratory Results WBC 6.0 10^3/uL (4.0-10.0) 11/09/22 04:21 Corrected WBC Cancelled 10/08/22 15:35 RBC 2.65 10^6/uL (4.1-5.3) L 11/09/22 04:21 Hgb 7.7 g/dL (11.7-16.6) L 11/09/22 04:21 Hct 26.3 % (42.0-52.0) L 11/09/22 04:21 MCV 99.2 fl (80-94) H 11/09/22 04:21 MCH 29.1 pg (28.0-34.0) 11/09/22 04:21 MCHC 29.3 g/dL (30.0-36.0) L 11/09/22 04:21 RDW 15.9 % (12.1-15.1) H 11/09/22 04:21 Plt Count 217 10^3/cmm (130-400) 11/09/22 04:21 MPV 10.7 fL (7.4-10.4) H 11/09/22 04:21 Gran % Cancelled 10/08/22 15:35 Neut % (Auto) 58.6 % 11/09/22 04:21 Lymph % (Auto) 17.1 % 11/09/22 04:21 Gosper % (Auto) 16.6 % 11/09/22 04:21 Eos % (Auto) 6.9 % 11/09/22 04:21 Baso % (Auto) 0.3 % 11/09/22 04:21 Neut # (Auto) 3.48 10^3/uL (1.8-7.7) 11/09/22 04:21 Lymph # (Auto) 1.0 10^3/uL (0.8-4.8) 11/09/22 04:21 Gosper # (Auto) 1.0 10^3/uL (0.2-0.9) H 11/09/22 04:21 Eos # (Auto) 0.4 10^3/uL (0.0-0.8) 11/09/22 04:21 Baso # (Auto) 0.0 10^3/uL (0.0-0.1) 11/09/22 04:21 Absolute Gran (auto) Cancelled 10/08/22 15:35 Nucleated RBC % (auto) 0 % 11/09/22 04:21 Nucleated RBCs # 0.0 /100WBC 11/09/22 04:21 PT 15.40 SECONDS (12.1-14.9) H 11/04/22 03:09 INR 1.18 (0.8-1.2) 11/04/22 03:09 APTT 33.3 SECONDS (23.9-36.7) 11/04/22 03:09 Fibrinogen 427 mg/dL (174-498) 11/04/22 03:09 Fibrin Degrad Products Pos, 10-40 ug/mL (NEG) H 11/01/22 15:33 D-Dimer 6.31 ug/mIFEU (0-0.59) H 11/01/22 15:33 Specimen Type Arterial 11/08/22 04:20 Sample Site Radial, right 11/08/22 04:20 ABG pH 7.42 (7.35-7.45) 11/08/22 04:20 ABG pCO2 47.3 mmHg (35-45) H 11/08/22 04:20 ABG pO2 77.6 mmHg (80.0-100.0) L 11/08/22 04:20 ABG HCO3 30.7 mmol/L (22-26) H 11/08/22 04:20 ABG O2 Saturation 93.9 11/05/22 04:00 ABG Base Excess 5.6 mmol/L (-2.0-2.0) H 11/08/22 04:20 Blair Test Pos 11/08/22 04:20 A-a O2 Gradient 12.2 mmHg (5-10) H 11/05/22 04:00 Hematocrit 26.1 % (42-52) L 11/08/22 04:20 Hgb O2 Saturation 91.7 % (95-100) L 11/05/22 04:00 Carboxyhemoglobin 1.9 %THgb (0.4-20.1) 11/05/22 04:00 Methemoglobin 0.5 % (0.4-1.5) 11/05/22 04:00 Total Hemoglobin 8.1 g/dL (14-18) L 11/05/22 04:00 Sodium 147.0 mmol/L (131-143) H 11/05/22 04:00 Potassium 4.1 mmol/L (3.5-5.0) 11/05/22 04:00 Glucose 103.0 mg/dL (70-115) 11/05/22 04:00 Ionized Calcium 1.2 mmol/L (1.1-1.4) 11/05/22 04:00 Respiration Rate 15.0 % 11/02/22 15:14 O2 Delivery Device Vent 11/08/22 04:20 O2 Liters/Min 4.0 % 10/09/22 03:58 Vent Mode Vc/ac 10/23/22 05:20 FiO2 30.0 % 11/08/22 04:20 Tidal Volume 0.50 11/07/22 03:50 PEEP 5.0 cmH20 11/08/22 04:20 Pressure Support 10.0 cmH2O 10/23/22 05:20 Specimen Drawn By [place] 10/23/22 05:20 Back Tender Pulp Drier ID Norberto 11/08/22 04:20 Sodium 139 mmol/L (136-145) 11/09/22 04:21 Potassium 4.8 mmol/L (3.5-5.1) 11/09/22 04:21 Chloride 105 mmol/L (98-107) 11/09/22 04:21 Carbon Dioxide 30 mmol/L (22-29) H 11/09/22 04:21 Anion Gap 8.8 (5-19) 11/09/22 04:21 BUN 24 mg/dL (8-23) H 11/09/22 04:21 Creatinine 1.2 mg/dL (0.7-1.2) 11/09/22 04:21 GFR Calculation 60.4 mL/min (90-130) L 11/09/22 04:21 Glucose 132 mg/dL (65-115) H 11/09/22 04:21 POC Glucose 118 mg/dL (70-110) H 11/01/22 09:12 Calculated Osmolality 294 mOsm/kg (285-295) 11/09/22 04:21 Lactate 0.8 mmol/L (0.5-2.2) 10/19/22 02:17 Uric Acid 5.3 mg/dL (3.4-7.0) 10/09/22 03:50 Calcium 8.8 mg/dL (8.5-10.5) 11/09/22 04:21 Phosphorus 3.4 mg/dL (2.5-4.5) 11/04/22 03:09 Magnesium 2.0 mg/dL (1.7-2.3) 11/04/22 03:09 Iron 17 ug/dL (59-158) L 10/09/22 03:50 TIBC 152 mcg/dl 10/09/22 03:50 % Saturation 11.1 % (20-50) L 10/09/22 03:50 Unsat Iron Binding 135 ug/dL (112-347) 10/09/22 03:50 Total Bilirubin 0.3 mg/dL (0.15-1.2) 11/09/22 04:21 AST 21 U/L (0-40) 11/09/22 04:21 ALT 21 U/L (0-41) 11/09/22 04:21 Alkaline Phosphatase 105 U/L (40-130) 11/09/22 04:21 Troponin T Baseline 27 ng/L (0-15) H 10/08/22 17:20 Troponin T 120 Minute 29.84 ng/L (0-15) H 10/08/22 19:38 Delta Troponin T 2.84 ABS# (0-10) 10/08/22 19:38 Troponin T Hi Sens 6Hr 33.17 ng/L (0-15) H 10/08/22 23:05 Troponin T Hi Sens 6Hr Delta 6.17 ng/L (0-12) 10/08/22 23:05 NT-Pro-B Natriuret Pep 2681 pg/mL (0-125) H 10/12/22 03:22 Total Protein 5.7 g/dL (6.6-8.7) L 11/09/22 04:21 Albumin 2.4 g/dL (3.5-5.2) L 11/09/22 04:21 Globulin 3.3 g/dL (1.3-4.6) 11/09/22 04:21 Carcinoembryonic Ag 18.4 ng/mL (0.0-4.7) H 10/08/22 06:30 Vitamin B12 1054 pg/mL (232-1245) 10/22/22 11:24 Folate 12.3 ng/mL (4.5-32.2) 10/22/22 11:24 Procalcitonin 1.35 ng/mL (0-0.5) H 10/19/22 02:17 TSH 0.90 uIU/mL (0.27-4.20) 10/09/22 03:50 Nasal Influ A H1 2008 PCR Not detected (NOT DETECT) 10/10/22 14:00 Vancomycin Trough 19.0 ug/mL (10-15) H 11/07/22 07:04 Adenovirus (PCR) Not detected (NOT DETECT) 10/10/22 14:00 C. pneumoniae DNA (PCR) Not detected (NOT DETECT) 10/10/22 14:00 Coronavirus 229E (PCR) Detected (NOT DETECT) A 10/10/22 14:00 Human Metapneumovir PCR Not detected (NOT DETECT) 10/10/22 14:00 Influenza A (H1) PCR Not detected (NOT DETECT) 10/10/22 14:00 Influenza A (H3) PCR Not detected (NOT DETECT) 10/10/22 14:00 Influenza Type A (PCR) Not detected (NOT DETECT) 10/10/22 14:00 Influenza Type B (PCR) Not detected (NOT DETECT) 10/10/22 14:00 M. pneumoniae (PCR) Not detected (NOT DETECT) 10/10/22 14:00 Parainfluenza 1 (PCR) Not detected (NOT DETECT) 10/10/22 14:00 Parainfluenza 2 (PCR) Not detected (NOT DETECT) 10/10/22 14:00 Parainfluenza 3 (PCR) Not detected (NOT DETECT) 10/10/22 14:00 Parainfluenza 4 (PCR) Not detected (NOT DETECT) 10/10/22 14:00 RSV Type A (PCR) Not detected (NOT DETECT) 10/10/22 14:00 RSV Type B (PCR) Not detected (NOT DETECT) 10/10/22 14:00 Entero/Rhino (PCR) Not detected (NOT DETECT) 10/10/22 14:00 SARS-CoV-2 (PCR) Not detected (NOT DETECT) 10/10/22 14:00 Blood Type O Negative 11/01/22 19:50 Rho(D) Type Negative 11/01/22 19:50 Antibody Screen Negative 11/01/22 19:50 Crossmatch See Detail 11/01/22 19:50 Vitals Last Vital Signs Temp 98.0 F 11/09/22 04:00 Pulse 59 L 11/09/22 10:00 Resp 22 H 11/09/22 11:12 BP 115/59 11/09/22 10:00 Pulse Ox 97 11/09/22 11:12 O2 Del Method 11/09/22 10:00 O2 Flow Rate 4 11/01/22 14:26 FiO2 30 11/09/22 11:12 Discharge Plan Discharge Patient Disposition: Xfer SNF Condition: Stable Prescriptions: No Action (DME) Custom Molded Orthotics See Rx Instructions .Route .MEDSUPPLY Qty: 1 0RF Rx Instructions: As directed (DME) Night splint to Right See Rx Instructions .Route .MEDSUPPLY Qty: 1 0RF Rx Instructions: As directed allopurinol 300 mg tablet 300 mg PO DAILY@2200 folic acid 1 mg tablet 1 mg PO DAILY@2200 multivitamin Tablet 6 tab PO DAILY@2200 biotin 1 mg tablet 1 mg PO DAILY [id number] bor 750 mg-100 mg- 25 mcg tablet 2 tab PO DAILY lycopene 10 mg capsule 10 mg PO DAILY Rx Instructions: administer after a meal resveratrol 250 mg capsule 250 mg PO QPM saw palmetto 500 mg capsule 500 mg PO DAILY Rx Instructions: give with food (meal/snack) lovastatin 40 mg tablet 40 mg PO BEDTIME Symbicort 80-4.5 mcg/actuation HFA aerosol inhaler 2 puff INHALATION BID@ Qty: 10.2 3RF testosterone cypionate 200 mg/mL oil 120 mg IM Q7D Qty: 10 5RF Rx Instructions: ON TUESDAYS vitamin E 1,000 unit Capsule 1,000 unit PO DAILY@2200 sennosides [senna] 8.6 mg Tablet 8.6 mg PO DAILY PRN (Reason: Constipation) ascorbic acid (vitamin C) [Vitamin C] 1,000 mg Tablet 1,000 mg PO DAILY@2200 loratadine [Claritin] 10 mg tablet 10 mg PO DAILY PRN (Reason: Allergy Symptoms) tadalafil [Cialis] 20 mg tablet 20 mg PO DAILY PRN (Reason: sexual activity) Rx Instructions: administer approximately 30min before sexual activity; NO NITROGLYCERIN! Xarelto 20 mg tablet 20 mg PO QPM lisinopril 20 mg tablet 20 mg PO BEDTIME Tylenol Ex Str Rapid Release 500 mg Tablet 1,000 mg PO BID PRN (Reason: Pain) triamcinolone acetonide 0.1 % Cream 1 applic TOPICAL EVERY OTHER DAY trazodone 150 mg tablet 300 mg PO BEDTIME Vitamin D3 10 mcg (400 unit) Capsule 10 mcg PO DAILY melatonin 5 mg Tablet 5 mg PO BEDTIME chromium picolinate 1,000 mcg Tablet 1,000 mcg PO DAILY bisoprolol-hydrochlorothiazide 10-6.25 mg tablet 2 tab PO BEDTIME ketoconazole 2 % shampoo 1 applic TOPICAL DAILY PRN (Reason: Rash) Discharge Orders: Transfer Out of Facility (Order); Ordered 11/09/22 Ordered By: Isaias Soares Referrals: [facility] [Outside] Patient Instructions: Opioid Safety Coding Level of Care Code Acute Code for Chg Fwd Diagnoses Colon cancer C18.9 Status post left hemicolectomy Z90.49 C. difficile colitis A04.72 Intra-abdominal collection R18.8 Pneumonia J18.9 Pleural effusion J90 Anemia D64.9 TALON (acute kidney injury) N17.9
--- NOTE | 2022-11-09 12:17 | P.TS_ITS ---
Transfer Summary Providers Date of Admission: 10/08/22 13:46 Date of Discharge/Transfer: 11/09/22 Attending Provider at Admission: Isaias Soares DO Attending Provider at Transfer: Isaias Soares DO Consults: medicine infectious disease Primary Care Provider: Al Álvarez MD Transfer Plans: Anticipated date of transfer: 11/09/22 . Diagnoses at Discharge Discharge Diagnosis (1) Colon cancer: Status: Acute (2) Status post left hemicolectomy: Status: Acute (3) C. 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 He underwent left hemicolectomy on October 08, 2022, with primary anastomosis. On October 15, 2022 he was found to have an anastomotic leak. The anastomosis was resected and he received an end colostomy. He eventually was extubated and was tolerating a regular diet after period of tube feeding. He then had a spontaneous bleed from his rectus muscle near the colostomy site and was taken back to the operating room on November 01, 2022 for control of hemorrhage and ostomy revision. Imaging on 10/25/2022 found an intra-abdominal abscess and he was started on meropenem. Repeat imaging showed the abscess to be shrinking. The abscess was deemed on accessible by interventional radiology. Infectious disease was consulted and switched him to Zosyn and requested a repeat CT in 2 to 3 weeks. Infectious disease would like ertapenem once a day after discharge for total of 6 weeks antibiotic therapy starting from 10/25/2022. He also developed C. difficile while in the hospital and infectious disease once oral vancomycin continued until 10 days after stopping IV antibiotics. He was tolerating Osmolite at 60 mL/h upon discharge. He has a wound VAC closing his midline incision which was changed Saturday. Physical Exam Narrative: General : Patient is well developed , no acute distress intubated and sedated Head : Normal cephalic, a-traumatic. Ears : Pinnae and external canal are normal. Hearing is normal. Eyes : PERRLA, Sclera and injection are normal. No conjunctival discharge. Nose : Mucous membranes are without erythema. Throat : buccal mucosa is normal, gums are without significant recession or hypertrophy. Lungs : Equal chest rise bilaterally, no use of accessory muscles, trachea is midline. Cor : Rate and rhythm are normal. Abdomen : Soft, ND, NT, there is a healthy and functioning colostomy in the right lower quadrant. There is a midline wound with a wound VAC in place with healthy granular tissue. No signs of infection Extremities : No edema, no cyanosis or clubbing, dorsalis pedis pulses are present bilaterally, non-tender to palpation of calves. Upper extremities are normal bilaterally. Urinary Catheter Management: Orellana: Cath Placed During This Visit: yes, but has since been removed by the nurse Reason for Continuing Indwelling Catheter: Accurate Measurement of Urinary Output in Critically Ill Patients Urinary Catheter Date of Insertion: 10/15/22 Urinary Catheter Time of Insertion: 13:50 Date Urinary Catheter Removed: 10/10/22 Time Urinary Catheter Discontinued: 17:45 TS Data Studies Completed and Pending Pending at discharge Category Date Time Status ABG FULL [Arterial Blood Gas Full] AM LABS Lab 11/04/22 04:00 Results Complete Blood Count w/Auto AM LABS Lab 11/10/22 04:00 Ordered Sputum Culture and Gram Stain Stat Lab 10/25/22 10:19 Uncollected Labs from last 24 hours 11/09/22 11/09/22 04:21 04:21 WBC 6.0 RBC 2.65 L Hgb 7.7 L Hct 26.3 L MCV 99.2 H MCH 29.1 MCHC 29.3 L RDW 15.9 H Plt Count 217 MPV 10.7 H Neut % (Auto) 58.6 Lymph % (Auto) 17.1 [place] % (Auto) 16.6 Eos % (Auto) 6.9 Baso % (Auto) 0.3 Neut # (Auto) 3.48 Lymph # (Auto) 1.0 [place] # (Auto) 1.0 H Eos # (Auto) 0.4 Baso # (Auto) 0.0 Nucleated RBC % (auto) 0 Nucleated RBCs # 0.0 Sodium 139 Potassium 4.8 Chloride 105 Carbon Dioxide 30 H Anion Gap 8.8 BUN 24 H Creatinine 1.2 GFR Calculation 60.4 L Glucose 132 H Calculated Osmolality 294 Calcium 8.8 Total Bilirubin 0.3 AST 21 ALT 21 Alkaline Phosphatase 105 Total Protein 5.7 L Albumin 2.4 L Globulin 3.3 Completed Studies During Hospitalization Category Date Time Status CT abdomen pelvis w con* [id number] Routine Cat Scan 10/25/22 10:[address] abdomen pelvis w con* [id number] Stat Cat Scan 10/15/22 07:[address] abdomen pelvis wo con [id number] Routine Cat Scan 10/18/22 09:[address] angio chest w abd pel w con Routine Cat Scan 11/01/22 11:[address] head wo con* [id number] Routine Cat Scan 10/28/22 10:[address] head wo con* [id number] Routine Cat Scan 10/31/22 15:43 Completed CXRP [XR chest 1V portable [id number]] Routine Exams 10/10/22 08:51 Completed CXRP [XR chest 1V portable [id number]] Routine Exams 10/16/22 11:49 Completed CXRP [XR chest 1V portable [id number]] Routine Exams 10/16/22 13:01 Completed CXRP [XR chest 1V portable [id number]] Routine Exams 11/05/22 11:38 Completed CXRP [XR chest 1V portable [id number]] Stat Exams 11/01/22 17:16 Completed CXRP [XR chest 1V portable 28905] Stat Exams 11/01/22 19:08 Completed XR KUB portable [id number] Stat Exams 10/19/22 22:33 Completed XR chest 1V portable 80008 QAM Exams 11/06/22 06:00 Completed XR chest 1V portable 53689 QAM Exams 11/08/22 06:00 Completed XR chest 1V portable [id number] Routine Exams 10/15/22 17:40 Completed XR chest 1V portable 52301 Routine Exams 10/20/22 13:43 Completed XR chest 1V portable [id number] Routine Exams 11/04/22 07:44 Completed XR chest 1V portable [id number] Urgent Exams 10/08/22 21:20 Completed XR chest 1V portable [id number] Urgent Exams 11/07/22 00:48 Completed Pathology: Surgical [PTH] Routine Pth 10/08/22 13:01 Completed Pathology: Surgical [PTH] Routine Pth 10/15/22 17:00 Completed [place] chest [id number] Routine Ultrasound 10/25/22 14:03 Completed [place] chest [id number] Routine Ultrasound 11/01/22 16:22 Completed Laboratory Last Values WBC 6.0 10^3/uL (4.0-10.0) 11/09/22 04:21 Corrected WBC Cancelled 10/08/22 15:35 RBC 2.65 10^6/uL (4.1-5.3) L 11/09/22 04:21 Hgb 7.7 g/dL (11.7-16.6) L 11/09/22 04:21 Hct 26.3 % (42.0-52.0) L 11/09/22 04:21 MCV 99.2 fl (80-94) H 11/09/22 04:21 MCH 29.1 pg (28.0-34.0) 11/09/22 04:21 MCHC 29.3 g/dL (30.0-36.0) L 11/09/22 04:21 RDW 15.9 % (12.1-15.1) H 11/09/22 04:21 Plt Count 217 10^3/cmm (130-400) 11/09/22 04:21 MPV 10.7 fL (7.4-10.4) H 11/09/22 04:21 Gran % Cancelled 10/08/22 15:35 Neut % (Auto) 58.6 % 11/09/22 04:21 Lymph % (Auto) 17.1 % 11/09/22 04:21 [place] % (Auto) 16.6 % 11/09/22 04:21 Eos % (Auto) 6.9 % 11/09/22 04:21 Baso % (Auto) 0.3 % 11/09/22 04:21 Neut # (Auto) 3.48 10^3/uL (1.8-7.7) 11/09/22 04:21 Lymph # (Auto) 1.0 10^3/uL (0.8-4.8) 11/09/22 04:21 [place] # (Auto) 1.0 10^3/uL (0.2-0.9) H 11/09/22 04:21 Eos # (Auto) 0.4 10^3/uL (0.0-0.8) 11/09/22 04:21 Baso # (Auto) 0.0 10^3/uL (0.0-0.1) 11/09/22 04:21 Absolute Gran (auto) Cancelled 10/08/22 15:35 Nucleated RBC % (auto) 0 % 11/09/22 04:21 Nucleated RBCs # 0.0 /100WBC 11/09/22 04:21 PT 15.40 SECONDS (12.1-14.9) H 11/04/22 03:09 INR 1.18 (0.8-1.2) 11/04/22 03:09 APTT 33.3 SECONDS (23.9-36.7) 11/04/22 03:09 Fibrinogen 427 mg/dL (174-498) 11/04/22 03:09 Fibrin Degrad Products Pos, 10-40 ug/mL (NEG) H 11/01/22 15:33 D-Dimer 6.31 ug/mIFEU (0-0.59) H 11/01/22 15:33 Specimen Type Arterial 11/08/22 04:20 Sample Site Radial, right 11/08/22 04:20 ABG pH 7.42 (7.35-7.45) 11/08/22 04:20 ABG pCO2 47.3 mmHg (35-45) H 11/08/22 04:20 ABG pO2 77.6 mmHg (80.0-100.0) L 11/08/22 04:20 ABG HCO3 30.7 mmol/L (22-26) H 11/08/22 04:20 ABG O2 Saturation 93.9 11/05/22 04:00 ABG Base Excess 5.6 mmol/L (-2.0-2.0) H 11/08/22 04:20 Blair Test Pos 11/08/22 04:20 A-a O2 Gradient 12.2 mmHg (5-10) H 11/05/22 04:00 Hematocrit 26.1 % (42-52) L 11/08/22 04:20 Hgb O2 Saturation 91.7 % (95-100) L 11/05/22 04:00 Carboxyhemoglobin 1.9 %THgb (0.4-20.1) 11/05/22 04:00 Methemoglobin 0.5 % (0.4-1.5) 11/05/22 04:00 Total Hemoglobin 8.1 g/dL (14-18) L 11/05/22 04:00 Sodium 147.0 mmol/L (131-143) H 11/05/22 04:00 Potassium 4.1 mmol/L (3.5-5.0) 11/05/22 04:00 Glucose 103.0 mg/dL (70-115) 11/05/22 04:00 Ionized Calcium 1.2 mmol/L (1.1-1.4) 11/05/22 04:00 Respiration Rate 15.0 % 11/02/22 15:14 O2 Delivery Device Vent 11/08/22 04:20 O2 Liters/Min 4.0 % 10/09/22 03:58 Vent Mode Vc/ac 10/23/22 05:20 FiO2 30.0 % 11/08/22 04:20 Tidal Volume 0.50 11/07/22 03:50 PEEP 5.0 cmH20 11/08/22 04:20 Pressure Support 10.0 cmH2O 10/23/22 05:20 Specimen Drawn By [place] 10/23/22 05:20 Neon Glass Blower ID Norberto 11/08/22 04:20 Sodium 139 mmol/L (136-145) 11/09/22 04:21 Potassium 4.8 mmol/L (3.5-5.1) 11/09/22 04:21 Chloride 105 mmol/L (98-107) 11/09/22 04:21 Carbon Dioxide 30 mmol/L (22-29) H 11/09/22 04:21 Anion Gap 8.8 (5-19) 11/09/22 04:21 BUN 24 mg/dL (8-23) H 11/09/22 04:21 Creatinine 1.2 mg/dL (0.7-1.2) 11/09/22 04:21 GFR Calculation 60.4 mL/min (90-130) L 11/09/22 04:21 Glucose 132 mg/dL (65-115) H 11/09/22 04:21 POC Glucose 118 mg/dL (70-110) H 11/01/22 09:12 Calculated Osmolality 294 mOsm/kg (285-295) 11/09/22 04:21 Lactate 0.8 mmol/L (0.5-2.2) 10/19/22 02:17 Uric Acid 5.3 mg/dL (3.4-7.0) 10/09/22 03:50 Calcium 8.8 mg/dL (8.5-10.5) 11/09/22 04:21 Phosphorus 3.4 mg/dL (2.5-4.5) 11/04/22 03:09 Magnesium 2.0 mg/dL (1.7-2.3) 11/04/22 03:09 Iron 17 ug/dL (59-158) L 10/09/22 03:50 TIBC 152 mcg/dl 10/09/22 03:50 % Saturation 11.1 % (20-50) L 10/09/22 03:50 Unsat Iron Binding 135 ug/dL (112-347) 10/09/22 03:50 Total Bilirubin 0.3 mg/dL (0.15-1.2) 11/09/22 04:21 AST 21 U/L (0-40) 11/09/22 04:21 ALT 21 U/L (0-41) 11/09/22 04:21 Alkaline Phosphatase 105 U/L (40-130) 11/09/22 04:21 Troponin T Baseline 27 ng/L (0-15) H 10/08/22 17:20 Troponin T 120 Minute 29.84 ng/L (0-15) H 10/08/22 19:38 Delta Troponin T 2.84 ABS# (0-10) 10/08/22 19:38 Troponin T Hi Sens 6Hr 33.17 ng/L (0-15) H 10/08/22 23:05 Troponin T Hi Sens 6Hr Delta 6.17 ng/L (0-12) 10/08/22 23:05 NT-Pro-B Natriuret Pep 2681 pg/mL (0-125) H 10/12/22 03:22 Total Protein 5.7 g/dL (6.6-8.7) L 11/09/22 04:21 Albumin 2.4 g/dL (3.5-5.2) L 11/09/22 04:21 Globulin 3.3 g/dL (1.3-4.6) 11/09/22 04:21 Carcinoembryonic Ag 18.4 ng/mL (0.0-4.7) H 10/08/22 06:30 Vitamin B12 1054 pg/mL (232-1245) 10/22/22 11:24 Folate 12.3 ng/mL (4.5-32.2) 10/22/22 11:24 Procalcitonin 1.35 ng/mL (0-0.5) H 10/19/22 02:17 TSH 0.90 uIU/mL (0.27-4.20) 10/09/22 03:50 Nasal Influ A H1 2009 PCR Not detected (NOT DETECT) 10/10/22 14:00 Vancomycin Trough 19.0 ug/mL (10-15) H 11/07/22 07:04 Adenovirus (PCR) Not detected (NOT DETECT) 10/10/22 14:00 C. pneumoniae DNA (PCR) Not detected (NOT DETECT) 10/10/22 14:00 Coronavirus 229E (PCR) Detected (NOT DETECT) A 10/10/22 14:00 Human Metapneumovir PCR Not detected (NOT DETECT) 10/10/22 14:00 Influenza A (H1) PCR Not detected (NOT DETECT) 10/10/22 14:00 Influenza A (H3) PCR Not detected (NOT DETECT) 10/10/22 14:00 Influenza Type A (PCR) Not detected (NOT DETECT) 10/10/22 14:00 Influenza Type B (PCR) Not detected (NOT DETECT) 10/10/22 14:00 M. pneumoniae (PCR) Not detected (NOT DETECT) 10/10/22 14:00 Parainfluenza 1 (PCR) Not detected (NOT DETECT) 10/10/22 14:00 Parainfluenza 2 (PCR) Not detected (NOT DETECT) 10/10/22 14:00 Parainfluenza 3 (PCR) Not detected (NOT DETECT) 10/10/22 14:00 Parainfluenza 4 (PCR) Not detected (NOT DETECT) 10/10/22 14:00 RSV Type A (PCR) Not detected (NOT DETECT) 10/10/22 14:00 RSV Type B (PCR) Not detected (NOT DETECT) 10/10/22 14:00 Entero/Rhino (PCR) Not detected (NOT DETECT) 10/10/22 14:00 SARS-CoV-2 (PCR) Not detected (NOT DETECT) 10/10/22 14:00 Blood Type O Negative 11/01/22 19:50 Rho(D) Type Negative 02/02/23 19:50 Antibody Screen Negative 11/01/22 19:50 Crossmatch See Detail 11/01/22 19:50 Radiology Impressions KUB X-Ray 10/19/22 22:33 IMPRESSION: Limited portable exam. Abdomen/Pelvis CT 10/25/22 10:30 IMPRESSION: 1. Small RIGHT pleural effusion. 2. Bilateral segmental lower lobe atelectasis and RIGHT middle lobe partial atelectasis. 3. New foci of air in the RIGHT lower quadrant colostomy site. This air was not present on 10/18/2022. Close observation for possible new ischemic changes at the colostomy site. 4. Central pelvic collection measures 8.6 x 3.3 cm. Differential includes a small central abscess versus seroma or hematoma. Recommend close follow-up. This may be difficult for image guided aspiration due to the patient's body habitus and deep position. 5. Nasogastric tube in good position. 6. No free air is appreciated. Head CT 10/31/22 15:43 IMPRESSION: No acute intracranial abnormality. Chest/Abdomen/Pelvis CT 11/01/22 11:22 IMPRESSION: 1. Large 5.2 cm left thyroid nodule with recommendation for nonemergent thyroid ultrasound to rule out neoplasm. 2. Moderate right pleural fluid collection. 3. Compressive atelectasis and pneumonia in the right upper lobe, right middle lobe and right lower lobe. IMPRESSION: 1. Orellana balloon catheter in the urinary bladder. 2. Rectal stump filled with barium. 3. Interval resolution of previously noted air bubbles near the right lower quadrant colostomy with continued inflammation in surrounding fat and soft tissues. 4. Mildly decreased size of 7.1 x 2.7 x 3.4 cm loculated fluid collection or loop of bowel in the mid lower abdomen/upper pelvis compared with previous measurement of 8.4 x 3.1 x 3.6 cm. Axial series 6, images 51-63. Sagittal series 16, images 44-53. Coronal series 15, images 62-56. 5. Apparent increased size of 6.7 x 6.1 x 2.4 cm lesion measuring 23 Hounsfield units in the region of the right rectus muscle, medial and inferior to the right lower quadrant colostomy suggesting possible complex fluid collection with or without infection. Density would be suggestive of unclotted blood versus other complex fluid collection. Axial series 6, images 54-69. 6. Stable 2 left-sided percutaneous peritoneal drainage catheters. COMMENTS: Consistent with the [employer]'s Incidental Findings Committee white paper (J Am Dg Radiol 2018): Any incidental renal lesion less than 1 cm or classified as too small to characterize, or any incidental cystic renal lesion characterized as simple-appearing, is likely benign. No follow-up imaging is recommended for these lesions per consensus recommendations based on imaging criteria. Chest Ultrasound 11/01/22 16:22 IMPRESSION: Small RIGHT pleural effusion. Appears decreased as compared to the prior ultrasound. Chest X-Ray 11/08/22 06:00 IMPRESSION: Stable abnormal chest. Recent Clincial Data Last Vital Signs Temp 98.0 F 11/09/22 04:00 Pulse 59 L 11/09/22 10:00 Resp 22 H 11/09/22 11:12 BP 115/59 11/09/22 10:00 Pulse Ox 97 11/09/22 11:12 O2 Del Method 11/09/22 10:00 O2 Flow Rate 4 11/01/22 14:26 FiO2 30 11/09/22 11:12 Vital Signs Temp Pulse Resp BP Pulse Ox O2 Del Method FiO2 11/09/22 11:12 22 H 97 30 11/09/22 10:00 59 L 20 H 115/59 97 Mechanical Ventilation 30 11/09/22 09:00 61 20 H 114/60 98 Mechanical Ventilation 30 11/09/22 08:00 67 20 H 114/66 100 Mechanical Ventilation 30 11/09/22 07:00 60 20 H 123/57 97 Mechanical Ventilation 30 11/09/22 08:00 30 11/09/22 07:59 16 99 30 11/09/22 07:55 62 17 100 Mechanical Ventilation 30 11/09/22 06:00 63 16 119/65 99 Mechanical Ventilation 30 11/09/22 05:50 66 11/09/22 05:32 20 H 100 30 11/09/22 04:00 98.0 F 63 16 110/57 96 Mechanical Ventilation 30 11/09/22 02:00 61 16 114/70 99 Mechanical Ventilation 30 11/09/22 02:55 16 97 30 11/09/22 02:54 70 17 100 Mechanical Ventilation 30 Intake & Output/Weight 11/07/22 11/08/22 11/09/22 11/10/22 06:59 06:59 06:59 06:59 Intake Total 2616.000 / 2616.000 3515.6 / 3515.6 4708.113 / 4708.113 1340 / 1340 Output Total 3920 / 3920 5655 / 5655 2780 / 2780 Balance -1304.000 / -1304.000 -2139.4 / -2139.4 1928.113 / 5291.311 4840 / 1340 Weight 338 lb 8 oz 339 lb 9 oz 339 lb 14.4 oz Procedures Performed He underwent left hemicolectomy on October 08, 2022, with primary anastomosis. On October 15, 2022 he was found to have an anastomotic leak. The anastomosis was resected and he received an end colostomy. He eventually was extubated and was tolerating a regular diet after period of tube feeding. He then had a spontaneous bleed from his rectus muscle near the colostomy site and was taken back to the operating room on November 01, 2022 for control of hemorrhage and ostomy revision Vitals Last Vital Signs Temp 98.0 F 11/09/22 04:00 Pulse 59 L 11/09/22 10:00 Resp 22 H 11/09/22 11:12 BP 115/59 11/09/22 10:00 Pulse Ox 97 11/09/22 11:12 O2 Del Method 11/09/22 10:00 O2 Flow Rate 4 11/01/22 14:26 FiO2 30 11/09/22 11:12 TS Medications Medications Acetaminophen (Acetaminophen 325 Mg Tablet) 650 mg PO Q6H PRN PRN Reason: FEVER Last Admin: 11/08/22 13:40 Dose: 650 mg Albuterol Sulfate (Albuterol 2.5 Mg/3 Ml Neb) 2.5 mg INHALATION Q6H.RESP PRN PRN Reason: SHORTNESS OF BREATH Last Admin: 10/26/22 07:35 Dose: 2.5 mg Amiodarone HCl (Amiodarone 200 Mg Tablet) 200 mg PO DAILY SOFIA Last Admin: 11/09/22 10:09 Dose: 200 mg Amlodipine Besylate (Amlodipine 10 Mg Tablet) 10 mg PO DAILY SOFIA Last Admin: 11/01/22 09:53 Dose: Not Given Atorvastatin Calcium (Atorvastatin 40 Mg Tablet) 20 mg PO BEDTIME SOFIA Last Admin: 10/14/22 20:20 Dose: 20 mg Budesonide (Budesonide 0.5 Mg/2 Ml Neb) 0.5 mg INHALATION BID.RESPIRATORY SOFIA Last Admin: 11/09/22 07:55 Dose: 0.5 mg Folic Acid (Folic Acid 1 Mg Tablet) 1 mg PO DAILY@2200 SOFIA Last Admin: 10/14/22 22:01 Dose: 1 mg Heparin Sodium (Porcine) (Heparin 5,000 Unit/Ml Inj 1 Ml) 5,000 unit SUBCUT Q8H SOFIA Last Admin: 11/09/22 10:08 Dose: 5,000 unit Tranexamic Acid 1,000 mg/ (Sodium Chloride) 110 mls @ 330 mls/hr IV Q30M PRN PRN Reason: BLEEDING Last Infusion: 11/02/22 07:28 Dose: Infused Propofol (Diprivan) 1,000 mg in 100 mls @ 0 mls/hr IV .Q0M [facility]; Protocol Last Titration: 11/06/22 14:44 Dose: Infused Fentanyl 1,000 mcg/ Sodium (Chloride) 100 mls @ 0 mls/hr IV .Q0M [facility]; Protocol Last Admin: 11/09/22 05:49 Dose: 75 mcg/hr, 7.5 mls/hr Piperacillin Sod/Tazobactam (Sod 3.375 gm/ Sodium Chloride) 50 mls @ 12.5 mls/hr IV Q8H [facility] Last Infusion: 11/09/22 10:14 Dose: Infused Dextrose/Sodium Chloride (Dextrose 5%-Sod Chloride 0.9%) 1,000 mls @ 100 mls/hr IV .Q10H [facility] Last Admin: 11/09/22 10:06 Dose: 100 mls/hr Fluconazole 100 mg/ N/A 50 mls @ 50 mls/hr IV Q24H [facility] Stop: 11/18/22 11:14 Last Infusion: 11/08/22 13:35 Dose: Infused Dexmedetomidine HCl 1,000 mcg/ (Sodium Chloride) 260 mls @ 0 mls/hr IV .Q0M [facility]; Protocol Last Admin: 11/09/22 11:32 Dose: 0.8 mcg/kg/hr, 31.93 mls/hr Levalbuterol HCl (Levalbuterol 0.63 Mg/3 Ml Neb) 0.63 mg INHALATION Q6H.RESP [facility] Last Admin: 11/09/22 07:55 Dose: 0.63 mg Metoclopramide HCl (Metoclopramide 5 Mg/Ml Sdv 2 Ml) 5 mg IVP Q6H PRN PRN Reason: NAUSEA AND VOMITING Last Admin: 10/29/22 20:02 Dose: 5 mg Metoprolol Tartrate (Metoprolol Tartrate 25 Mg Tablet) 25 mg PO BID@0900,2099 [facility] Last Admin: 11/02/22 21:31 Dose: 25 mg Nystatin (Nystatin Powder 15 Gm Btl) 1 applic TOPICAL [phone],[phone] [facility] Last Admin: 11/09/22 10:11 Dose: 1 applic Ondansetron HCl (Ondansetron 2 Mg/Ml Sdv 2 Ml) 4 mg IVP Q6H PRN PRN Reason: NAUSEA AND VOMITING Last Admin: 10/27/22 04:23 Dose: 4 mg Pantoprazole Sodium (Pantoprazole 40 Mg Sdv) 40 mg IVP DAILY [facility] Last Admin: 11/09/22 10:08 Dose: 40 mg Simethicone (Simethicone 80 Mg Chew) 40 mg PO TID PRN PRN Reason: HICCUPS Last Admin: 10/30/22 21:23 Dose: 40 mg Trazodone HCl (Trazodone 150 Mg Tablet) 300 mg PO BEDTIME [facility] Last Admin: 11/08/22 20:25 Dose: 300 mg Vancomycin HCl (Vancomycin 1,000 Mg Oral Jovana (Btl)) 125 mg PO QID [facility] Last Admin: 11/09/22 10:09 Dose: 125 mg Discontinued Medications Hydrocodone Bitart/Acetaminophen (Hydrocodone-Acetaminophen 7.5-325 Mg Tablet) 1 tab PO Q6H PRN PRN Reason: MODERATE TO SEVERE PAIN Last Admin: 10/26/22 13:42 Dose: 1 tab Hydrocodone Bitart/Acetaminophen (Hydrocodone-Acetaminophen 7.5-325 Mg Tablet) 1 - 2 tab PO Q6H PRN PRN Reason: MODERATE TO SEVERE PAIN Last Admin: 10/27/22 04:24 Dose: 2 tab Hydrocodone Bitart/Acetaminophen (Hydrocodone-Acetaminophen 7.5-325 Mg Tablet) 1 tab PO Q6H PRN PRN Reason: MODERATE TO SEVERE PAIN Last Admin: 10/28/22 15:52 Dose: 1 tab Albuterol Sulfate (Albuterol 2.5 Mg/3 Ml Neb) 2.5 mg INHALATION ONCE PRN PRN Reason: WHEEZING Albuterol Sulfate (Albuterol 2.5 Mg/3 Ml Neb) 2.5 mg INHALATION ONCE ONE Stop: 10/08/22 20:35 Last Admin: 10/08/22 21:09 Dose: 2.5 mg Albuterol/Ipratropium (Ipratropium-Albuterol 3 Ml Neb) 3 ml INHALATION Q6H PRN PRN Reason: SHORTNESS OF BREATH Albuterol/Ipratropium (Ipratropium-Albuterol 3 Ml Neb) 3 ml INHALATION Q6H [facility] Last Admin: 10/09/22 09:06 Dose: Not Given Albuterol/Ipratropium (Ipratropium-Albuterol 3 Ml Neb) 3 ml INHALATION Q6H.RESP [facility] Last Admin: 10/22/22 07:59 Dose: 3 ml Amiodarone HCl (Amiodarone 200 Mg Tablet) 400 mg PO BID [facility] Last Admin: 10/15/22 08:29 Dose: Not Given Amiodarone HCl (Amiodarone 200 Mg Tablet) 400 mg PO BID [facility] Last Admin: 10/29/22 08:05 Dose: 400 mg Amiodarone HCl (Amiodarone 200 Mg Tablet) 400 mg PO DAILY [facility] Last Admin: 10/29/22 09:05 Dose: Not Given Atropine Sulfate (Atropine 0.1 Mg/Ml Syr 10 Ml) Confirm Administered Dose 1 mg .ROUTE .STK-MED ONE Stop: 10/08/22 09:56 Atropine Sulfate (Atropine 0.1 Mg/Ml Syr 10 Ml) 0.5 mg IVP ONCE ONE Stop: 10/28/22 12:14 Last Admin: 10/28/22 12:17 Dose: 0.5 mg Benzocaine (Cetylpyridinium Lozenge) 1 each MUCOUS MEM ONCE PRN PRN Reason: SORE THROAT Calcium Chloride (Calcium Chloride 10% Syr 10 Ml) Confirm Administered Dose 1 gm .ROUTE .STK-MED ONE Stop: 10/15/22 14:13 Calcium Chloride (Calcium Chloride 10% Syr 10 Ml) Confirm Administered Dose 2 gm .ROUTE .STK-MED ONE Stop: 11/01/22 16:42 Chlorhexidine Gluconate (Chlorhexidine Gluconate 4% Btl 118 Ml) 1 applic TOPICAL DAILY [facility] Last Admin: 11/01/22 09:53 Dose: Not Given Dexamethasone (Dexamethasone 4 Mg/Ml Inj) Confirm Administered Dose 8 mg .ROUTE .STK-MED ONE Stop: 10/15/22 14:28 Dextrose (Dextrose 50% Syringe 50 Ml) 50 ml IVP ONCE ONE Stop: 10/08/22 20:30 Last Admin: 10/09/22 20:30 Dose: Not Given Dextrose (Dextrose 50% Syringe 50 Ml) 50 ml IVP ONCE ONE Stop: 10/08/22 20:31 Last Admin: 10/08/22 21:52 Dose: Not Given Digoxin (Digoxin 250 Mcg/Ml Inj 2 Ml) 250 mcg IVP NOW ONE Stop: 10/11/22 08:51 Last Admin: 10/11/22 09:45 Dose: Not Given Diltiazem HCl (Diltiazem 5 Mg/Ml Sdv 5 Ml) 5 mg IVP ONCE ONE Stop: 10/08/22 16:37 Last Admin: 10/08/22 16:56 Dose: 5 mg Diltiazem HCl (Diltiazem 5 Mg/Ml Sdv 5 Ml) 10 mg IVP ONCE ONE Stop: 10/08/22 17:37 Last Admin: 10/08/22 17:42 Dose: 10 mg Diltiazem HCl (Diltiazem 60 Mg Tablet) 60 mg PO Q6H [facility] Last Admin: 10/15/22 06:17 Dose: Not Given Diphenhydramine HCl (Diphenhydramine 50 Mg/Ml Sdv 1ml) 12.5 mg IVP ONCE PRN PRN Reason: Postop N/V Diphenhydramine HCl (Diphenhydramine 50 Mg/Ml Sdv 1ml) 12.5 mg IVP ONCE PRN PRN Reason: PONV Enoxaparin Sodium (Enoxaparin 150 Mg/Ml Syringe) 150 mg SUBCUT Q12H [facility] Last Admin: 10/13/22 05:23 Dose: 150 mg Enoxaparin Sodium (Enoxaparin 40 Mg/0.4 Ml Syringe) 40 mg SUBCUT Q24H [facility] Last Admin: 10/22/22 08:59 Dose: 40 mg Ephedrine Sulfate (Ephedrine 50 Mg/Ml Inj) Confirm Administered Dose 50 mg .ROUTE .STK-MED ONE Stop: 10/08/22 08:19 Ephedrine Sulfate (Ephedrine 50 Mg/Ml Inj) Confirm Administered Dose 50 mg .ROUTE .STK-MED ONE Stop: 10/15/22 14:50 Epinephrine HCl (Epinephrine 0.1 Mg/Ml Syr 10 Ml) Confirm Administered Dose 1 mg .ROUTE .[employer]-MED ONE Stop: 11/01/22 16:42 Famotidine (Famotidine 20 Mg/2 Ml Inj) 20 mg IVP ONCE PRN PRN Reason: HEARTBURN Fentanyl (Fentanyl 50 Mcg/Ml Inj 2ml) 50 mcg IVP Q5M PRN PRN Reason: Pain level 1-5 PACU Phase I Stop: 10/09/22 05:48 Last Admin: 10/08/22 13:36 Dose: 50 mcg Fentanyl (Fentanyl 50 Mcg/Ml Inj 2ml) 50 mcg IVP ONCE PRN PRN Reason: Preop Pain Fentanyl (Fentanyl 50 Mcg/Ml Inj 2ml) 100 mcg IVP ONCE PRN PRN Reason: Pain level 1-5 PACU Phase I Stop: 10/09/22 05:48 Fentanyl (Fentanyl 50 Mcg/Ml Inj 2ml) Confirm Administered Dose 100 mcg .ROUTE [facility] ONE Stop: 10/08/22 06:51 Fentanyl (Fentanyl 50 Mcg/Ml Inj 2ml) Confirm Administered Dose 100 mcg .ROUTE .[facility] [place] ONE Stop: 10/08/22 13:26 Fentanyl (Fentanyl 50 Mcg/Ml Inj 2ml) Confirm Administered Dose 100 mcg .ROUTE .[employer] [place] ONE Stop: 10/08/22 13:31 Last Admin: 10/08/22 14:20 Dose: Not Given Fentanyl (Fentanyl 25 Mcg Patch) 1 patch TRANSDERMA Q72H SOFIA Last Admin: 10/15/22 18:25 Dose: Not Given Fentanyl (Fentanyl 50 Mcg/Ml Inj 2ml) Confirm Administered Dose 100 mcg .ROUTE [facility] [place] ONE Stop: 10/15/22 12:36 Fentanyl (Fentanyl 50 Mcg/Ml Inj 2ml) 25 mcg IVP ONCE ONE Stop: 10/22/22 10:21 Last Admin: 10/22/22 11:26 Dose: 25 mcg Fentanyl (Fentanyl 50 Mcg/Ml Inj 2ml) 25 mcg IVP ONCE ONE Stop: 10/22/22 10:22 Last Admin: 10/22/22 11:27 Dose: Not Given Fentanyl (Fentanyl 50 Mcg/Ml Inj 2ml) Confirm Administered Dose 100 mcg .ROUTE .[facility] [place] ONE Stop: 11/01/22 15:07 Fluconazole (Fluconazole 100 Mg Tablet) 200 mg PO DAILY [facility] Stop: 11/02/22 08:59 Last Admin: 11/01/22 09:57 Dose: Not Given Furosemide (Furosemide 10 Mg/Ml Sdv 4ml) 40 mg IVP ONCE ONE Stop: 11/01/22 09:01 Last Admin: 11/01/22 08:56 Dose: 40 mg Furosemide (Furosemide 10 Mg/Ml Sdv 2ml) 20 mg IVP ONCE ONE Stop: 11/04/22 12:14 Last Admin: 11/04/22 12:34 Dose: 20 mg Furosemide (Furosemide 10 Mg/Ml Sdv 4ml) 40 mg IVP ONCE ONE Stop: 11/05/22 09:54 Last Admin: 11/05/22 10:01 Dose: 40 mg Glycopyrrolate (Glycopyrrolate 0.2 Mg/Ml Sdv 2 Ml) Confirm Administered Dose 0.8 mg .ROUTE .STK-MED ONE Stop: 10/08/22 12:22 Guaifenesin (Guaifenesin 600 Mg Tablet) 600 mg PO BID [facility] Last Admin: 11/01/22 09:57 Dose: Not Given Heparin Sodium (Porcine) (Heparin 5,000 Unit/Ml Inj 1 Ml) 5,000 unit SUBCUT Q12H [facility] Last Admin: 10/11/22 12:16 Dose: 5,000 unit Hydralazine HCl (Hydralazine 20 Mg/Ml Inj 1 Ml) 10 mg IVP Q6H PRN PRN Reason: SBP >160 Last Admin: 10/26/22 13:33 Dose: 10 mg Hydromorphone HCl (Hydromorphone 1 Mg/Ml Inj 1 Ml) 0.5 mg IVP ONCE PRN PRN Reason: For preop pain/anxiety Hydromorphone HCl (Hydromorphone 1 Mg/Ml Inj 1 Ml) 0.5 mg IVP ONCE PRN PRN Reason: Phase II postop pain Last Admin: 10/08/22 15:02 Dose: 0.5 mg Hydromorphone HCl (Hydromorphone 1 Mg/Ml Inj 1 Ml) 0.5 mg IVP Q10M PRN PRN Reason: Pain level 6-10 PACU Phase I Stop: 10/09/22 05:48 Hydromorphone HCl (Hydromorphone 1 Mg/Ml Inj 1 Ml) Confirm Administered Dose 1 mg .ROUTE .STK-MED ONE Stop: 10/08/22 08:25 Hydromorphone HCl (Hydromorphone 1 Mg/Ml Inj 1 Ml) Confirm Administered Dose 1 mg .ROUTE .STK-MED ONE Stop: 10/08/22 12:44 Hydromorphone HCl (Hydromorphone 1 Mg/Ml Inj 1 Ml) 1 mg IVP Q3H PRN PRN Reason: PAIN Last Admin: 10/08/22 14:17 Dose: 1 mg Hydromorphone HCl (Hydromorphone 1 Mg/Ml Inj 1 Ml) 1 mg IVP Q2H PRN PRN Reason: PAIN Last Admin: 10/15/22 11:07 Dose: 1 mg Hydromorphone HCl (Hydromorphone 1 Mg/Ml Inj 1 Ml) 1 mg IVP Q2H PRN PRN Reason: PAIN Last Admin: 10/19/22 13:45 Dose: 1 mg Hydromorphone HCl (Hydromorphone 1 Mg/Ml Inj 1 Ml) 0.5 mg IVP Q4H PRN PRN Reason: PAIN Last Admin: 10/31/22 15:37 Dose: 0.5 mg Hydromorphone HCl (Hydromorphone 1 Mg/Ml Inj 1 Ml) 1 mg IVP ONCE ONE Stop: 10/24/22 08:31 Last Admin: 10/24/22 08:40 Dose: 1 mg Hydromorphone HCl (Hydromorphone 1 Mg/Ml Inj 1 Ml) 1 mg IVP ONCE ONE Stop: 10/26/22 09:26 Last Admin: 10/26/22 09:31 Dose: 1 mg Hydromorphone HCl (Hydromorphone 1 Mg/Ml Inj 1 Ml) Confirm Administered Dose 1 mg .ROUTE .STK-MED ONE Stop: 11/01/22 15:56 Sodium Chloride (Sodium Chloride 0.9%) 1,000 mls @ 30 mls/hr IV .Q24H [facility] Stop: 10/09/22 05:59 Last Infusion: 10/08/22 16:38 Dose: Infused Sodium Chloride (Sodium Chloride 0.9%) 1,000 mls @ 100 mls/hr IV .Q10H [facility] Stop: 10/09/22 05:59 Last Admin: 10/08/22 15:13 Dose: Not Given Cefoxitin Sodium 2,000 mg/ (Sodium Chloride) 50 mls @ 100 mls/hr IV ONCE ONE; Protocol Stop: 10/08/22 07:29 Last Infusion: 10/08/22 09:29 Dose: Infused Albumin Human (Albumin) Confirm Administered Dose 12.5 gm in 50 mls @ as directed .ROUTE [facility] ONE Stop: 10/08/22 06:57 Sodium Chloride (Sodium Chloride 0.9%) 1,000 mls @ 125 mls/hr IV .Q8H [facility] Last Infusion: 10/08/22 17:32 Dose: Infused Cefoxitin Sodium 2,000 mg/ (Sodium Chloride) 50 mls @ 100 mls/hr IV Q6H SOF[facility]; Protocol Stop: 10/09/22 13:59 Last Admin: 10/08/22 15:12 Dose: Not Given Cefoxitin Sodium 2,000 mg/ (Sodium Chloride) 50 mls @ 100 mls/hr IV Q6H [facility]; Protocol Last Infusion: 10/09/22 07:46 Dose: Infused Sodium Chloride (Sodium Chloride 0.9%) 500 mls @ 500 mls/hr IV ONCE ONE Stop: 10/08/22 16:53 Last Infusion: 10/08/22 17:11 Dose: Infused Diltiazem HCl 50 mg/ Sodium (Chloride) 50 mls @ 10 mls/hr IV .Q5H SOF[facility] Last Admin: 10/09/22 20:31 Dose: Not Given Sodium Chloride (Sodium Chloride 0.9%) 500 mls @ 500 mls/hr IV ONCE ONE Stop: 10/08/22 18:12 Last Infusion: 10/08/22 18:56 Dose: Infused Potassium Chloride/Sodium Chloride (Sodium Chlor 0.9% + Kcl 20 Meq) 20 meq in 1,000 mls @ 125 mls/hr IV .Q8H SOF[facility] Last Admin: 10/08/22 17:30 Dose: 125 mls/hr Magnesium Sulfate (Magnesium Sulfate Premix) 2 gm in 50 mls @ 50 mls/hr IV ONCE ONE Stop: 10/08/22 19:11 Last Infusion: 10/09/22 07:45 Dose: Infused Sodium Chloride (Sodium Chloride 0.9%) 1,000 mls @ 75 mls/hr IV .[id number] SOFIA Last Admin: 10/11/22 18:22 Dose: Not Given Calcium Gluconate/Sodium Chloride (Calcium Gluconate 0.9% Nacl) 1 gm in 50 mls @ 50 mls/hr IV ONCE PRN PRN Reason: given when get to ICU Last Infusion: 10/09/22 07:44 Dose: Infused Diltiazem HCl 100 mg/ Sodium (Chloride) 100 mls @ 0 mls/hr IV .Q0M SOFIA; Protocol Last Titration: 10/11/22 18:22 Dose: Infused Insulin Human Regular 10 unit/ (N/A) 0.1 mls @ 0 mls/hr IVP ONCE ONE Stop: 10/08/22 20:29 Last Infusion: 10/09/22 07:45 Dose: Infused Insulin Human Regular 10 unit/ (N/A) 0.1 mls @ 0 mls/hr IVP ONCE ONE Stop: 10/08/22 20:31 Last Admin: 10/09/22 20:30 Dose: Not Given Dextrose 35.5 ml/ Sterile (Water 14.5 ml/ N/A) 50 mls @ 600 mls/hr IVP ONCE ONE Stop: 10/08/22 21:04 Last Infusion: 10/09/22 07:45 Dose: Infused Sodium Chloride (Sodium Chloride 0.9%) 500 mls @ 999 mls/hr IV .Q31M ONE Stop: 10/08/22 22:37 Last Infusion: 10/09/22 07:46 Dose: Infused Norepinephrine Bitartrate 4 mg (/ Dextrose) 254 mls @ 0 mls/hr IV .Q0M SOFIA; Protocol Last Titration: 10/09/22 20:31 Dose: Infused Insulin Human Regular 10 unit/ (N/A) 0.1 mls @ 0 mls/hr IVP ONCE ONE Stop: 10/09/22 08:52 Last Infusion: 10/09/22 19:00 Dose: Infused Calcium Gluconate/Sodium Chloride (Calcium Gluconate 0.9% Nacl) 1 gm in 50 mls @ 50 mls/hr IV ONCE ONE Stop: 10/09/22 09:50 Last Infusion: 10/09/22 13:19 Dose: Infused Piperacillin Sod/Tazobactam (Sod / Sodium Chloride) 50 mls @ 0 mls/hr [id number] CONT SOFIA; Protocol Piperacillin Sod/Tazobactam (Sod 3.375 gm/ Sodium Chloride) 50 mls @ 12.5 mls/hr IV Q8H SOF[facility] Last Infusion: 10/18/22 05:50 Dose: Infused Dextrose 35.5 ml/ Sterile (Water 14.5 ml/ N/A) 50 mls @ 600 mls/hr IVP ONCE ONE Stop: 10/09/22 10:19 Last Infusion: 10/09/22 10:19 Dose: Infused Amiodarone HCl 150 mg/Dextrose/ IV Miscellaneous Supplies 103 mls @ 412 mls/hr IV ONCE ONE Stop: 10/11/22 17:22 Last Infusion: 10/11/22 18:22 Dose: Infused Amiodarone HCl 900 mg/Dextrose/ IV Miscellaneous Supplies 518 mls @ 0 mls/hr IV .Q0M SFOIA; Protocol Last Titration: 10/13/22 13:52 Dose: Infused Dextrose/Sodium Chloride (Dextrose 5%-Sod Chloride 0.45%) 1,000 mls @ 50 mls/hr IV .Q20H SOFIA Last Infusion: 10/15/22 19:31 Dose: Infused Potassium Chloride (K-Jimenez) 100 mls @ 25 mls/hr IV ONCE ONE Stop: 10/14/22 07:58 Last Infusion: 10/14/22 08:11 Dose: Infused Potassium Phosphate 30 mmol/ (Sodium Chloride) 110 mls @ 25 mls/hr IV ONCE ONE Stop: 10/14/22 12:38 Last Infusion: 10/14/22 13:15 Dose: Infused Diltiazem HCl 100 mg/ Sodium (Chloride) 100 mls @ 0 mls/hr IV .Q0M SOFIA; Protocol Last Titration: 10/15/22 21:22 Dose: Infused Amiodarone HCl 900 mg/Dextrose/ IV Miscellaneous Supplies 518 mls @ 0 mls/hr IV .Q0M SOFIA; Protocol Last Titration: 10/18/22 13:20 Dose: Infused Sodium Chloride (Sodium Chloride 0.9%) 1,000 mls @ 75 mls/hr IV .[id number] SOFIA Last Infusion: 10/23/22 15:34 Dose: Infused Propofol (Diprivan) 1,000 mg in 100 mls @ 0 mls/hr IV .Q0M SOFIA; Protocol Last Titration: 10/22/22 12:10 Dose: Infused Midazolam HCl 100 mg/ Sodium (Chloride) 100 mls @ 0 mls/hr IV .Q0M SOFIA; Protocol Last Titration: 10/19/22 23:23 Dose: Infused Fentanyl 1,000 mcg/ Sodium (Chloride) 100 mls @ 0 mls/hr IV .Q0M SOFIA; Protocol Last Titration: 10/16/22 03:35 Dose: Infused Norepinephrine Bitartrate 4 mg (/ Dextrose) 254 mls @ 0 mls/hr IV .Q0M SOFIA; Protocol Last Titration: 10/18/22 13:19 Dose: Infused Potassium Chloride (K-Jimenez) 100 mls @ 25 mls/hr IV ONCE ONE Stop: 10/15/22 22:43 Last Infusion: 10/15/22 22:58 Dose: Infused Sodium Chloride (Sodium Chloride 0.9%) 500 mls @ 999 mls/hr IV .Q31M ONE Stop: 10/15/22 21:03 Last Infusion: 10/15/22 21:22 Dose: Infused Sodium Chloride (Sodium Chloride 0.9%) 500 mls @ 999 mls/hr IV .Q31M ONE Stop: 10/16/22 01:11 Last Infusion: 10/16/22 01:14 Dose: Infused Fentanyl 2,500 mcg/ Sodium (Chloride) 250 mls @ 0 mls/hr IV .Q0M SOFIA; Protocol Last Titration: 10/20/22 17:54 Dose: Infused Amiodarone HCl 900 mg/Dextrose/ IV Miscellaneous Supplies 518 mls @ 17.267 mls/hr IV CONT [facility] Last Admin: 10/21/22 18:22 Dose: Not Given Vasopressin 100 unit/ Sodium (Chloride) 100 mls @ 0 mls/hr IV .Q0M SOFIA; Protocol Last Titration: 10/21/22 15:16 Dose: Infused Meropenem 1,000 mg/ Sodium (Chloride) 50 mls @ 100 mls/hr IV Q12H SOF[facility] Stop: 10/25/22 08:59 Last Infusion: 10/25/22 14:29 Dose: Infused Sodium Chloride (Sodium Chloride 0.9%) 500 mls @ 999 mls/hr IV .Q31M ONE Stop: 10/18/22 09:27 Last Infusion: 10/18/22 10:25 Dose: Infused Sodium Chloride (Sodium Chloride 0.9%) 500 mls @ 500 mls/hr IV ONCE ONE Stop: 10/18/22 09:57 Last Infusion: 10/18/22 11:50 Dose: Infused Vancomycin/PEG/NADA/Lysine/Water (Vancocin) 1,500 mg in 300 mls @ 200 mls/hr IV Q24H SOFIA Stop: 10/25/22 09:59 Last Infusion: 10/24/22 11:58 Dose: Infused Norepinephrine Bitartrate 8 mg (/ Dextrose) 508 mls @ 0 mls/hr IV .Q0M SOFIA; Protocol Last Titration: 10/26/22 19:58 Dose: Infused Albumin Human (Albumin) Confirm Administered Dose 12.5 gm in 250 mls @ as directed .ROUTE [facility] ONE Stop: 10/15/22 13:47 Fentanyl 2,500 mcg/ Sodium (Chloride) 250 mls @ 0 mls/hr IV .Q0M SOFIA; Protocol Last Titration: 10/21/22 15:16 Dose: Infused Midazolam HCl 100 mg/ Sodium (Chloride) 100 mls @ 0 mls/hr IV .Q0M SOFIA; Protocol Last Titration: 10/21/22 15:16 Dose: Infused Albumin Human (Albumin) 25 gm in 100 mls @ 60 mls/hr IV Q8H [facility] Last Infusion: 10/24/22 10:10 Dose: Infused Dexmedetomidine HCl 400 mcg/ (Sodium Chloride) 104 mls @ 0 mls/hr IV .Q0M SOFIA; Protocol Stop: 10/22/22 20:00 Last Titration: 10/22/22 20:02 Dose: Infused Fentanyl 1,000 mcg/ Sodium (Chloride) 100 mls @ 0 mls/hr IV .Q0M SOFIA; Protocol Last Titration: 10/26/22 09:16 Dose: 20 mcg/hr, 2 mls/hr Iron Sucrose 200 mg/ Sodium (Chloride) 110 mls @ 220 mls/hr IV Q24H [facility] Stop: 10/26/22 11:29 Last Infusion: 10/26/22 13:29 Dose: Infused Amino Acids/Electrolytes (Clinimix E 4.25%-10%) 1,000 mls @ 0 mls/hr IV .Q0M SOFIA; Protocol Stop: 10/23/22 13:59 Last Infusion: 10/23/22 16:22 Dose: 0 mls/hr Amino Acids/Electrolytes (Clinimix E 4.25%-10%) 1,000 mls @ 42 mls/hr IV .[id number] [facility] Last Admin: 10/23/22 16:22 Dose: Not Given Fat Emulsion Intravenous (Intralipid 20%) 125 mls @ 10.417 mls/hr IV Q24H [facility] Last Admin: 10/23/22 16:22 Dose: Not Given Dexmedetomidine HCl 1,000 mcg/ (Sodium Chloride) 260 mls @ 0 mls/hr IV .Q0M [facility]; Protocol Last Titration: 10/27/22 03:17 Dose: 0 mcg/kg/hr, 0 mls/hr Dextrose/Sodium Chloride (Dextrose 5%-Sod Chloride 0.45%) 1,000 mls @ 125 mls/hr IV .Q8H [facility] Last Infusion: 10/29/22 20:01 Dose: Infused Meropenem 1,000 mg/ Sodium (Chloride) 50 mls @ 100 mls/hr IV Q8H [facility] Stop: 10/31/22 14:59 Last Infusion: 10/31/22 17:10 Dose: Infused Insulin Human Regular 10 unit/ (N/A) 0.1 mls @ 0 mls/hr IVP ONCE ONE Stop: 10/28/22 11:06 Last Infusion: 10/28/22 12:01 Dose: Infused Dextrose 35.5 ml/ Sterile (Water 14.5 ml/ N/A) 50 mls @ 600 mls/hr IVP ONCE ONE Stop: 10/28/22 11:04 Last Infusion: 10/28/22 12:01 Dose: Infused Insulin Human Regular 10 unit/ (N/A) 0.1 mls @ 0 mls/hr IVP ONCE ONE Stop: 10/29/22 08:46 Last Admin: 10/29/22 09:05 Dose: 10 mls/hr Dextrose 35.5 ml/ Sterile (Water 14.5 ml/ N/A) 50 mls @ 600 mls/hr IVP ONCE ONE Stop: 10/29/22 08:19 Last Infusion: 10/29/22 23:21 Dose: Infused Insulin Human Regular 10 unit/ (N/A) 0.1 mls @ 0 mls/hr IVP ONCE ONE Stop: 10/30/22 12:17 Last Infusion: 10/30/22 12:47 Dose: Infused Dextrose 35.5 ml/ Sterile (Water 14.5 ml/ N/A) 50 mls @ 600 mls/hr IVP ONCE ONE Stop: 10/30/22 12:34 Last Infusion: 10/30/22 12:46 Dose: Infused Dextrose (D5w) 1,000 mls @ 75 mls/hr IV .[id number] SOFIA Last Admin: 11/03/22 06:22 Dose: 75 mls/hr Insulin Human Regular 10 unit/ (N/A) 0.1 mls @ 0 mls/hr IVP ONCE ONE Stop: 11/01/22 09:01 Last Infusion: 11/02/22 07:30 Dose: Infused Dextrose 35.5 ml/ Sterile (Water 14.5 ml/ N/A) 50 mls @ 600 mls/hr IVP ONCE ONE Stop: 11/01/22 08:49 Last Infusion: 11/02/22 07:30 Dose: Infused Sodium Chloride (Sodium Chloride 0.9% (100 Ml)) Confirm Administered Dose 100 mls @ as directed .ROUTE [facility] ONE Stop: 11/01/22 14:44 Last Admin: 11/01/22 18:43 Dose: Not Given Phenylephrine HCl 25 mg/ (Sodium Chloride) 252.5 mls @ 0 mls/hr IV .Q0M SOFIA; Protocol Meropenem 500 mg/ Sodium (Chloride) 50 mls @ 100 mls/hr IV Q8H [facility]; Protocol Last Infusion: 11/07/22 15:05 Dose: Infused Vancomycin HCl / Sodium (Chloride) 250 mls @ 0 mls/hr [id number] PROTOCOL SOFIA; Protocol Norepinephrine Bitartrate 4 mg (/ Dextrose) 254 mls @ 0 mls/hr IV .Q0M SOFIA; Protocol Last Titration: 11/03/22 06:22 Dose: 0 mcg/min, 0 mls/hr Vasopressin 100 unit/ Sodium (Chloride) 100 mls @ 0 mls/hr IV .Q0M SOFIA; Protocol Vancomycin HCl 2,000 mg/ (Sodium Chloride) 500 mls @ 250 mls/hr IV Q12H [facility] Last Infusion: 11/03/22 00:36 Dose: Infused Sodium Chloride (Sodium Chloride 0.9% (100 Ml)) Confirm Administered Dose 100 mls @ as directed .ROUTE .[facility] ONE Stop: 11/01/22 23:40 Last Infusion: 11/02/22 07:30 Dose: Infused Sodium Chloride (Sodium Chloride 0.9% (100 Ml)) Confirm Administered Dose 100 mls @ as directed .ROUTE .[facility] ONE Stop: 11/02/22 00:14 Last Infusion: 11/02/22 07:30 Dose: Infused Sodium Chloride (Sodium Chloride 0.9% (100 Ml)) Confirm Administered Dose 100 mls @ as directed .ROUTE .[facility] ONE Stop: 11/02/22 05:35 Last Infusion: 11/02/22 07:56 Dose: Infused Magnesium Sulfate (Magnesium Sulfate Premix) 4 gm in 100 mls @ 50 mls/hr IV ONCE ONE Stop: 11/02/22 09:00 Last Infusion: 11/02/22 09:26 Dose: Infused Vancomycin HCl 2,000 mg/ (Sodium Chloride) 500 mls @ 250 mls/hr IV Q24H [facility] Last Admin: 11/08/22 13:51 Dose: Not Given Albumin Human (Albumin) 37.5 gm in 150 mls @ 60 mls/hr IV ONCE ONE Stop: 11/04/22 14:45 Last Infusion: 11/04/22 15:34 Dose: Infused Dexmedetomidine HCl 400 mcg/ (Sodium Chloride) 104 mls @ 0 mls/hr IV .Q0M [facility]; Protocol Last Titration: 11/08/22 23:44 Dose: 0.8 mcg/kg/hr, 31.93 mls/hr Piperacillin Sod/Tazobactam (Sod / Sodium Chloride) 50 mls @ 0 mls/hr [id number] CONT SOFIA; Protocol Insulin Human Regular 10 unit/ (N/A) 0.1 mls @ 0 mls/hr IVP ONCE ONE Stop: 11/07/22 10:17 Last Infusion: 11/07/22 15:07 Dose: Infused Dextrose 35.5 ml/ Sterile (Water 14.5 ml/ N/A) 50 mls @ 600 mls/hr IVP ONCE ONE Stop: 11/07/22 10:34 Last Infusion: 11/07/22 15:07 Dose: Infused Vancomycin HCl 2,000 mg/ (Sodium Chloride) 500 mls @ 250 mls/hr IV Q24H [facility] Iohexol (Iohexol 350 Mg/Ml 500 Ml Btl (Per Ml)) 0 ml IV ONCE ONE Stop: 10/15/22 11:10 Last Admin: 10/15/22 11:09 Dose: 100 ml Iohexol (Iohexol 350 Mg/Ml 500 Ml Btl (Per Ml)) 0 ml IV ONCE ONE Stop: 10/15/22 11:10 Iohexol (Iohexol 350 Mg/Ml 500 Ml Btl (Per Ml)) 0 ml PO ONCE ONE Stop: 10/15/22 11:12 Last Admin: 10/15/22 11:11 Dose: 50 ml Iohexol (Iohexol 350 Mg/Ml 500 Ml Btl (Per Ml)) 0 ml PO ONCE ONE Stop: 10/18/22 10:05 Last Admin: 10/18/22 10:04 Dose: 30 ml Iohexol (Iohexol 350 Mg/Ml 500 Ml Btl (Per Ml)) 0 ml IV ONCE ONE Stop: 10/25/22 13:55 Last Admin: 10/25/22 13:54 Dose: 100 ml Iohexol (Iohexol 300 Mg/Ml 50 Ml Btl) 0 ml PO ONCE ONE Stop: 10/25/22 13:55 Last Admin: 10/25/22 13:54 Dose: 30 ml Iohexol (Iohexol 350 Mg/Ml 500 Ml Btl (Per Ml)) 0 ml IV ONCE ONE Stop: 11/01/22 14:19 Last Admin: 11/01/22 14:21 Dose: 95 ml Ipratropium [place] (Ipratropium 0.5 Mg/2.5 Ml Neb) 0.5 mg INHALATION ONCE PRN PRN Reason: WHEEZING Ipratropium [place] (Ipratropium 0.5 Mg/2.5 Ml Neb) 3 mg INHALATION Q6H.RESP PRN PRN Reason: cough Ipratropium [place] (Ipratropium 0.5 Mg/2.5 Ml Neb) 0.5 mg INHALATION Q6H.RESP PRN PRN Reason: cough Last Admin: 10/24/22 20:17 Dose: 0.5 mg Ipratropium [place] (Ipratropium 0.5 Mg/2.5 Ml Neb) 0.5 mg INHALATION Q6H.RESP SOFIA Last Admin: 10/31/22 08:34 Dose: 0.5 mg Ketamine HCl (Ketamine 50 Mg/Ml Inj 10 Ml) Confirm Administered Dose 500 mg .ROUTE .ST-MED ONE Stop: 10/15/22 12:48 Ketamine HCl (Ketamine 50 Mg/Ml Inj 10 Ml) Confirm Administered Dose 500 mg .ROUTE [facility] ONE Stop: 10/15/22 14:20 Ketamine HCl (Ketamine 50 Mg/Ml Inj 10 Ml) Confirm Administered Dose [address] .[facility] ONE Stop: 11/01/22 15:01 Lidocaine HCl (Lidocaine 1% Inj 10 Ml (Per Ml)) 5 ml IV ONCE ONE Stop: 10/14/22 12:12 Last Admin: 10/14/22 12:18 Dose: 5 ml Lidocaine/Epinephrine (Lidocaine 2%-Epi Mpf 1:200,000 10 Ml Sdv) Confirm Administered Dose 10 ml .ROUTE .[facility] ONE Stop: 10/08/22 06:53 Last Admin: 10/08/22 14:20 Dose: Not Given Lidocaine/Epinephrine (Lidocaine-Epi 2% Pf 10 Ml Sdv (Ml)) 10 ml INJECTION ONCE ONE Stop: 10/08/22 08:04 Last Admin: 10/08/22 14:20 Dose: Not Given Meperidine HCl (Meperidine 50 Mg/Ml Inj) 12.5 mg IVP ONCE PRN PRN Reason: Shivering PACU Phase I Metoclopramide HCl (Metoclopramide 5 Mg/Ml Sdv 2 Ml) 5 mg IVP NOW ONE Stop: 10/12/22 08:09 Last Admin: 10/12/22 10:00 Dose: 5 mg Metoprolol Tartrate (Metoprolol Tartrate 1 Mg/1 Ml Sdv 5 Ml) 5 mg IVP ONCE ONE Stop: 10/08/22 15:55 Last Admin: 10/08/22 16:04 Dose: 5 mg Metoprolol Tartrate (Metoprolol Tartrate 1 Mg/1 Ml Sdv 5 Ml) 2.5 mg IVP Q6H [facility] Last Admin: 10/09/22 14:37 Dose: 2.5 mg Metoprolol Tartrate (Metoprolol Tartrate 1 Mg/1 Ml Sdv 5 Ml) 5 mg IVP Q4H [facility] Last Admin: 10/10/22 13:49 Dose: 5 mg Metoprolol Tartrate (Metoprolol Tartrate 1 Mg/1 Ml Sdv 5 Ml) 5 mg IVP Q3H [facility] Last Admin: 10/11/22 16:49 Dose: 5 mg Metoprolol Tartrate (Metoprolol Tartrate 1 Mg/1 Ml Sdv 5 Ml) 5 mg IVP Q4H PRN PRN Reason: HR >120 Last Admin: 10/11/22 23:20 Dose: 5 mg Metoprolol Tartrate (Metoprolol Tartrate 1 Mg/1 Ml Sdv 5 Ml) 5 mg IVP Q6H [facility] Last Admin: 10/13/22 08:08 Dose: 5 mg Metoprolol Tartrate (Metoprolol Tartrate 25 Mg Tablet) 25 mg PO BID@0900,2100 [facility] Last Admin: 10/13/22 20:07 Dose: 25 mg Metoprolol Tartrate (Metoprolol Tartrate 25 Mg Tablet) 50 mg PO BID@0900,2100 [facility] Last Admin: 10/29/22 09:10 Dose: 50 mg Metoprolol Tartrate (Metoprolol Tartrate 25 Mg Tablet) 25 mg PO ONCE ONE Stop: 10/14/22 00:23 Last Admin: 10/14/22 00:33 Dose: 25 mg Midazolam HCl (Midazolam 1 Mg/Ml Inj 2 Ml) 2 mg IVP ONCE PRN PRN Reason: Preop Anxiety Midazolam HCl (Midazolam 1 Mg/Ml Inj 2 Ml) Confirm Administered Dose 2 mg .ROUTE .STK-MED ONE Stop: 10/08/22 06:58 Midazolam HCl (Midazolam 1 Mg/Ml Inj 2 Ml) Confirm Administered Dose 2 mg .ROUTE .STK-MED ONE Stop: 10/15/22 12:36 Midazolam HCl (Midazolam 1 Mg/Ml Inj 5 Ml) Confirm Administered Dose 5 mg .ROUTE .STK-MED ONE Stop: 10/15/22 16:08 Neostigmine Methylsulfate (Neostigmine 1 Mg/Ml Sdv 10 Ml) Confirm Administered Dose 10 mg .ROUTE .STK-MED ONE Stop: 10/08/22 12:22 Ondansetron HCl (Ondansetron 2 Mg/Ml Sdv 2 Ml) 4 mg IVP ONCE PRN PRN Reason: NAUSEA AND VOMITING Ondansetron HCl (Ondansetron 2 Mg/Ml Sdv 2 Ml) 4 mg IVP ONCE PRN PRN Reason: Nausea PACU Phase I Ondansetron HCl (Ondansetron 2 Mg/Ml Sdv 2 Ml) 4 mg IVP ONCE PRN PRN Reason: Nausea/Vomiting PACU PHASE II Ondansetron HCl (Ondansetron 2 Mg/Ml Sdv 2 Ml) Confirm Administered Dose 4 mg .ROUTE .ST-MED ONE Stop: 10/08/22 09:58 Ondansetron HCl (Ondansetron 2 Mg/Ml Sdv 2 Ml) Confirm Administered Dose 4 mg .ROUTE .[place]-MED ONE Stop: 10/15/22 14:28 Pantoprazole Sodium (Pantoprazole 40 Mg Sdv) 40 mg IVP Q12H [facility] Last Admin: 10/17/22 08:51 Dose: 40 mg Pantoprazole Sodium (Pantoprazole 40 Mg Sdv) 40 mg IVP DAILY [facility] Last Admin: 10/31/22 09:16 Dose: 40 mg Pantoprazole Sodium (Pantoprazole Dr 40 Mg Tablet) 40 mg PO DAILY [facility] Last Admin: 11/01/22 09:57 Dose: Not Given Phenylephrine HCl (Phenylephrine 10 Mg/Ml Sdv 1 Ml) Confirm Administered Dose 10 mg .ROUTE .ST-MED ONE Stop: 10/08/22 09:58 Phenylephrine HCl (Phenylephrine 10 Mg/Ml Sdv 1 Ml) Confirm Administered Dose 30 mg .ROUTE .Chatwala-MED ONE Stop: 10/15/22 14:32 Propofol (Propofol 10 Mg/Ml Sdv 20 Ml) Confirm Administered Dose 200 mg .ROUTE .STChatwala-MED ONE Stop: 10/08/22 06:51 Propofol (Propofol 10 Mg/Ml Sdv 20 Ml) Confirm Administered Dose 200 mg .ROUTE .STChatwala-MED ONE Stop: 10/08/22 09:56 Propofol (Propofol 10 Mg/Ml Sdv 20 Ml) Confirm Administered Dose 200 mg .ROUTE .STChatwala-MED ONE Stop: 11/01/22 16:42 Rocuronium [place] (Rocuronium 10 Mg/Ml Inj 5ml) Confirm Administered Dose 150 mg .ROUTE .STChatwala-MED ONE Stop: 11/01/22 16:43 Scopolamine (Scopolamine 1.5 Patch) 1 patch TRANSDERMA ONCE PRN PRN Reason: Nausea/ Vomiting Prophylaxis Sodium Polystyrene Sulfonate (Sodium Polystyrene Sulfonate 15 Gm/60 Ml Btl) 15 gm PO Q8H [facility] Sodium Polystyrene Sulfonate (Sodium Polystyrene Sulfonate 15 Gm/60 Ml Btl) 15 gm NG-TUBE Q6H [facility] Last Admin: 10/09/22 08:19 Dose: Not Given Sodium Polystyrene Sulfonate (Sodium Polystyrene Sulfonate 15 Gm/60 Ml Btl) 15 gm PO BID [facility] Last Admin: 10/31/22 09:12 Dose: 15 gm Sodium Polystyrene Sulfonate (Sodium Polystyrene Sulfonate 15 Gm/60 Ml Btl) 15 gm PO TID [facility] Last Admin: 10/31/22 20:55 Dose: 15 gm Succinylcholine Chloride (Succinylcholine 20 Mg/Ml Sdv 10ml) Confirm Administered Dose 200 mg .ROUTE .STK-MED ONE Stop: 10/08/22 08:18 Sugammadex Sodium (Sugammadex 200 Mg/2 Ml Sdv) Confirm Administered Dose 200 mg .ROUTE .STK-MED ONE Stop: 10/08/22 12:50 Tramadol HCl (Tramadol 50 Mg Tablet) 100 mg PO Q6H PRN PRN Reason: MODERATE PAIN Last Admin: 10/31/22 20:56 Dose: 100 mg Tranexamic Acid (Tranexamic Acid 1,000 Mg/10ml Sdv) Confirm Administered Dose 1,000 mg .ROUTE .STK-MED ONE Stop: 11/01/22 15:29 Last Admin: 11/01/22 19:01 Dose: Not Given Vecuronium [place] (Vecuronium 10 Mg Sdv) Confirm Administered Dose 10 mg .ROUTE .STK-MED ONE Stop: 10/08/22 09:55 Vecuronium [place] (Vecuronium 10 Mg Sdv) Confirm Administered Dose 10 mg .ROUTE .STK-MED ONE Stop: 10/15/22 14:50 Allergies oats Allergy (Verified 10/08/22 06:11) DIARRHEA apixaban [From Eliquis] Adverse Reaction (Severe, Verified 10/08/22 06:11) Headaches caffeine Adverse Reaction (Unknown, Verified 10/08/22 06:11) PALPITATIONS apple Adverse Reaction (Verified 10/08/22 06:11) DIARRHEA, VOMITING AND CRAMPING egg Adverse Reaction (Verified 10/08/22 06:11) DIARRHEA, VOMITING AND STOMACH CRAMPING meperidine [From Demerol] Adverse Reaction (Verified 10/08/22 06:11) EXCESSIVE SEDATION morphine Adverse Reaction (Verified 10/08/22 06:11) HALLUCINATIONS berries Allergy (Uncoded 10/08/22 06:11) Unknown raw tomatoes Allergy (Uncoded 10/08/22 06:11) ADR-Gastrointestinal Upset FRYE Adverse Reaction (Uncoded 10/08/22 06:11) DIARRHEA Home Medications allopurinol 300 mg tablet 300 mg PO DAILY@219910/15/19 [History Confirmed 10/09/22] folic acid 1 mg tablet 1 mg PO DAILY@219910/15/19 [History Confirmed 10/09/22] multivitamin 6 tab PO DAILY@219910/15/19 [History Confirmed 10/08/22] ascorbic acid (vitamin C) 1,000 mg tablet (Vitamin C) 1,000 mg PO DAILY@219910/27/19 [History Confirmed 10/09/22] sennosides 8.6 mg tablet (senna) 8.6 mg PO DAILY PRN Constipation 10/27/19 [H istory Confirmed 10/08/22] vitamin E 670 mg (1,000 unit) capsule 1,000 unit PO DAILY@219910/27/19 [History Confirmed 10/09/22] biotin 1 mg tablet 1 mg PO DAILY 11/15/20 [History Confirmed 10/09/22] glucosamine 750 mg-chondroit 100 mg-msm-D3 25 chc-wcyl-fpo bor tablet 2 tab PO DAILY 11/15/20 [History Confirmed 10/08/22] lycopene 10 mg capsule 10 mg PO DAILY 11/15/20 [History Confirmed 10/09/22] resveratrol 250 mg capsule 250 mg PO QPM 11/15/20 [History Confirmed 10/09/22] saw palmetto 500 mg capsule 500 mg PO DAILY 11/15/20 [History Confirmed 10/09/22] Custom Molded Orthotics #1 ea 10/30/21 [Rx Confirmed 10/09/22] Night splint to Right #1 ea 10/30/21 [Rx Confirmed 10/09/22] loratadine 10 mg tablet (Claritin) 10 mg PO DAILY PRN Allergy Symptoms 11/21/21 [History Confirmed 10/09/22] lovastatin 40 mg tablet 40 mg PO BEDTIME 11/21/21 [History Confirmed 10/09/22] budesonide-formoterol HFA 80 mcg-4.5 mcg/actuation aerosol inhaler (Symbicort) 2 puff inhalation BID@ #10.2 grams 01/19/22 [Rx Confirmed 10/09/22] testosterone cypionate 200 mg/mL intramuscular oil 120 mg (0.6 mL) IM Q7D #10 mL 06/21/22 [Rx Confirmed 10/08/22] bisoprolol 10 mg-hydrochlorothiazide 6.25 mg tablet 2 tab PO BEDTIME 07/18/22 [History Confirmed 10/09/22] ketoconazole 2 % shampoo 1 applic topical DAILY PRN Rash 07/18/22 [History Confirmed 10/08/22] tadalafil 20 mg tablet (Cialis) 20 mg PO DAILY PRN sexual activity 09/18/22 [History Confirmed 10/09/22] rivaroxaban 20 mg tablet (Xarelto) 20 mg PO QPM 10/05/22 [History Confirmed 10/09/22] acetaminophen 500 mg tablet 1,000 mg PO BID PRN Pain 10/09/22 [History Confirmed 10/09/22] cholecalciferol (vitamin D3) 10 mcg (400 unit) capsule (Vitamin D3) 10 mcg PO DAILY 10/09/22 [History Confirmed 10/09/22] chromium picolinate 1,000 mcg tablet 1,000 mcg PO DAILY 10/09/22 [History Confirmed 10/09/22] lisinopril 20 mg tablet 20 mg PO BEDTIME 10/09/22 [History Confirmed 10/09/22] melatonin 5 mg tablet 5 mg PO BEDTIME 10/09/22 [History Confirmed 10/09/22] trazodone 150 mg tablet 300 mg PO BEDTIME 10/09/22 [History Confirmed 10/09/22] triamcinolone acetonide 0.1 % topical cream 1 applic topical EVERY OTHER DAY 10/09/22 [History Confirmed 10/09/22] Discharge Plan Discharge Patient Disposition: Xfer SNF Condition: Stable Prescriptions: Continued allopurinol 300 mg tablet 300 mg PO DAILY@2199 folic acid 1 mg tablet 1 mg PO DAILY@2199 multivitamin Tablet 6 tab PO DAILY@2199 biotin 1 mg tablet 1 mg PO DAILY [id number]-sjj-[id number]-hyal-fawad bor 750 mg-100 mg- 25 mcg tablet 2 tab PO DAILY lycopene 10 mg capsule 10 mg PO DAILY Rx Instructions: administer after a meal resveratrol 250 mg capsule 250 mg PO QPM saw palmetto 500 mg capsule 500 mg PO DAILY Rx Instructions: give with food (meal/snack) lovastatin 40 mg tablet 40 mg PO BEDTIME Symbicort 80-4.5 mcg/actuation HFA aerosol inhaler 2 puff INHALATION BID@ Qty: 10.2 3RF testosterone cypionate 200 mg/mL oil 120 mg IM Q7D Qty: 10 5RF Rx Instructions: ON TUESDAYS vitamin E 1,000 unit Capsule 1,000 unit PO DAILY@2200 sennosides [senna] 8.6 mg Tablet 8.6 mg PO DAILY PRN (Reason: Constipation) ascorbic acid (vitamin C) [Vitamin C] 1,000 mg Tablet 1,000 mg PO DAILY@2200 loratadine [Claritin] 10 mg tablet 10 mg PO DAILY PRN (Reason: Allergy Symptoms) tadalafil [Cialis] 20 mg tablet 20 mg PO DAILY PRN (Reason: sexual activity) Rx Instructions: administer approximately 30min before sexual activity; NO NITROGLYCERIN! Xarelto 20 mg tablet 20 mg PO QPM lisinopril 20 mg tablet 20 mg PO BEDTIME Tylenol Ex Str Rapid Release 500 mg Tablet 1,000 mg PO BID PRN (Reason: Pain) triamcinolone acetonide 0.1 % Cream 1 applic TOPICAL EVERY OTHER DAY trazodone 150 mg tablet 300 mg PO BEDTIME Vitamin D3 10 mcg (400 unit) Capsule 10 mcg PO DAILY melatonin 5 mg Tablet 5 mg PO BEDTIME chromium picolinate 1,000 mcg Tablet 1,000 mcg PO DAILY bisoprolol-hydrochlorothiazide 10-6.25 mg tablet 2 tab PO BEDTIME ketoconazole 2 % shampoo 1 applic TOPICAL DAILY PRN (Reason: Rash) Discontinued (DME) Custom Molded Orthotics See Rx Instructions .Route .MEDSUPPLY Qty: 1 0RF Rx Instructions: As directed (DME) Night splint to Right See Rx Instructions .Route .MEDSUPPLY Qty: 1 0RF Rx Instructions: As directed Discharge Orders: Transfer Out of Facility (Order); Ordered 11/09/22 Ordered By: Isaias Soraes Referrals: [facility] [Outside] Isaias Soares DO [Physician] - 2 weeks (2 weeks after DC from facility) Discharge Diet: Resume prior tube feeds Discharge Activity: Increase activity as tolerated Patient Instructions: Opioid Safety Transfer Attestations Time Spent in Transfer Care: greater than 30 min Quality Metrics Clinical Quality Measures [ No reported AMI, CVA or VTE this stay] Coding Level of Care Code Acute Code for Chg Fwd Diagnoses Colon cancer C18.9 Status post left hemicolectomy Z90.49 C. difficile colitis A04.72 Intra-abdominal collection R18.8 Pneumonia J18.9 Pleural effusion J90 Anemia D64.9 TALON (acute kidney injury) N17.9
--- NOTE | 2022-11-09 12:32 | P.PN_ITS ---
Subjective Subjective: No acute events overnight. Patient has remained hemodynamically stable and afebrile. He has been kept on Precedex of 1 and fentanyl 75. Precedex of 1 was weaned down to 0.6 because of mild bradycardia. Patient is awake and alert to verbal and physical stimulus otherwise. Is comfortable. Documented urine output in last 24 hours off around 2.8 L. Yesterday had detailed discussion regarding patient's further care with director at [facility]-term acute [facility]. We discussed need for him to be placed to [facility] for further rehabilitation and wound healing as he requires extensive wound care with a physician every other day along with IV antibiotics daily for next 3 weeks and repeat CAT scan to further monitor the intra-abdominal abscess 3 weeks. Patient has finally been accepted to [facility]. Is awaiting transfer today. We will keep him intubated given the transfer as well. Medications: Reviewed: Yes Medication Review Details: Meropenem 500 mg iv q8h 10/18- current Vancomycin 2g iv q24h 11/04- 11/08 Vancomycin 125 mg po QID 10/26- Fluconazole 100 mg PO 11/08- Prior: Zosyn 10/09-10/18 iv vancomycin 10/18-10/25 Fluconazole 10/25- Vitals/I&O/Wt Last Vital Signs Temp 98.0 F 11/09/22 04:00 Pulse 59 L 11/09/22 10:00 Resp 22 H 11/09/22 11:12 BP 115/59 11/09/22 10:00 Pulse Ox 97 11/09/22 11:12 O2 Del Method 11/09/22 10:00 O2 Flow Rate 4 11/01/22 14:26 FiO2 30 11/09/22 11:12 11/08/22 11/09/22 11/09/22 22:59 06:59 14:59 Intake Total 2123.903 / 3514.619 1193.494 / 4708.113 1340 / 1340 Output Total 900 / 1050 1730 / 2780 Balance 1223.903 / 2464.619 -536.506 / 2732.345 1064 / 1340 Weight last 48 hrs Weight 154.176 kg Weight 154.023 kg Physical Exam Narrative: General: Intubated, sedated HEENT: PERRLA, pupils bilaterally equal and reactive Chest: Normal vesicular breath sounds, no added sounds, equal good air entry bilaterally CVS: S1-S2 regular, no murmurs, no tachycardia, no gallops, no rubs Abdomen: Distended, surgical drains present, central surgical scar with wound VAC present. Neuro: Intubated, sedated Urinary Catheter Management: Orellana: Cath Placed During This Visit: yes, but has since been removed by the nurse Reason for Continuing Indwelling Catheter: Accurate Measurement of Urinary Output in Critically Ill Patients Urinary Catheter Date of Insertion: 10/15/22 Urinary Catheter Time of Insertion: 13:50 Date Urinary Catheter Removed: 10/10/22 Time Urinary Catheter Discontinued: 17:45 Data 11/09/22 04:21 11/09/22 04:21 Micro: Microbiology 11/05/22 Unknown Gram Stain - Final Peritoneal Fluid Body Fluid Culture - Final Anabela albicans A&P Assessment and plan (1) Ventilator dependent: Most likely secondary to postoperative status in setting of obstructive sleep apnea, COPD. Difficult to extubate given postoperative status with abdominal wound VAC. Baseline sleep apnea requiring CPAP up to pressure of 12. Noncompliant at home. Extubated to heated high flow on 10/26. Reintubated on 11/01 for OR. Working well with pressure support currently. Oxygen supplementation keeping saturation over 88%. Continue with DuoNebs every 6 hour, budesonide twice daily. Depending on clinical picture within the next 2 to 3 days. Sedation vacation. Turn to MMV mode. 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 Status post resection of colonic anastomosis and end ileostomy formation for wound dehiscence on 10/15. Unfortunately patient started passing large blood clot from the colostomy site on 11/01. Taken back to the OR for colostomy revision and control of bleeding. Post cauterization of rectus sheath. S/P 6 units PRBCs , 3 units of FFP , tranexamic acid, 1 bag platelet. Wound care, diet advancement, anticoagulation as per primary team. (3) Intra-abdominal abscess post-procedure: Seen on CT scan from 10/25. Cultures sent. So far growing yeast. Appreciate ID recommendations. Plan for continuing antibiotics including Zosyn and vancomycin for at least 3 weeks from and repeating CT scan. MISTI drain in place. (4) Pneumonia: Hospital acquired Pneumonia: Patient been complaining of coughing. CTA chest has shown: Consolidation in the right upper lobe, right middle lobe, and right lower lobe. Continue with vancomycin and Zosyn for now. Sputum culture from 11/01 so far negative. (5) Septic shock: Patient met sepsis criteria: Has elevated white cell count, endorgan dysfunction in the presence of TALON, fever, likely intra-abdominal infection as a source, with possible pneumonia. Now resolved. Keep mean artery pressure 65, saturation over 90%. MRSA positive, sputum culture from 10/25 growing Klebsiella pneumonia and Anabela albicans. Sensitivities noted. Repeat sputum culture sent on 11/01 so far sterile. Send abscess culture today from drain 3. Antibiotics restarted when taken back to the OR. Currently on vancomycin and meropenem again as per creatinine clearance. Most recently restarted on 11/01. Continue with IV fluids. (6) C. difficile colitis: Positive on 10/26. Continue with oral vancomycin. Plan for continue oral vancomycin at least for 10 days after completion of IV antibiotic course. Monitor colostomy output. (7) TALON (acute kidney injury): Baseline serum creatinine usually around 1. Creatinine seems to be stabilizing around 1.3-1.4 currently. Monitor BMP Avoid nephrotoxic's Monitor intake output charting (8) Obstructive sleep apnea: Not currently using cpap at home due to malfunction of machine. ABG with evidence of hypercapnic hypoxic respiratory failure. Known restrictive lung disease and asbestosis. At baseline uses CPAP at home, unable to utilize BiPAP given abdominal surgery. Currently saturating 93% on supplemental O2, does drop down to 70% on room air. Does not typically use oxygen at home. Continue to use DuoNeb and budesonide scheduled inhalation. No current indicati on for steroid use. Suspect that patient may have underlying baseline hypoxia and will likely requir e supplemental O2 at discharge. (9) Hypernatremia: Resolved. (10) Hypertension: Chronic diagnosis, usually on bisoprolol-HCTZ and lisinopril. Goal blood pressure less than 140/90 mmHg with mean over 65. Currently all antihypertensives on hold. Will restart aspirin blood pressures goals. (11) Atrial fibrillation with rapid ventricular response: In a patient with known chronic atrial fibrillation. Currently having episodes of bradycardia. Continue to hold off on metoprolol. on bisoprolol in combination with HCTZ as only rate controlling medication at home. Currently rate controlled with amiodarone 200 mg oral daily. Takes Xarelto at home for anticoagulation. Off anticoagulation as per request from surgical team. Started on prophylaxis Heparin 5000 every 8 hourly. 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 Has myocardial perfusion study on 10/05/22. Ischemic work-up was negative. Currently troponin series additionally negative. No acute ST-T wave changes to suggest acute coronary syndrome. (12) Anemia: Acute blood loss anemia Has received 7 units of PRBC transfusion so far Monitor H&H (13) Hyperkalemia: Now resolved (14) Restrictive lung disease due to kyphoscoliosis: Aware (15) COVID-19: Had COVID in early 08/2022 and was hospitalized in [place] briefly needing oxygen. (16) Pleural effusion: Moderate right-sided pleural effusion: Seen on CT chest Ultrasound chest: Has not shown any significant pocket for thoracentesis Monitor chest x-ray Plan Plan for transfer to [facility] today. Patient has been accepted. We will hold off on extubation prostate cancer viral load. Continue with Precedex at a lower rate of 0.5 and fentanyl up heart rate. Will change dosage as per vitals and patient's comfort. Continue with D5 NS at 100 cc/h. Renal functions have come down to its baselin e. Plan going forward would be to continue Zosyn which can be changed to ertapenem/meropenem as per availability for next 3 weeks from 10/25 and to be followed up with a repeat CAT scan of the belly for further monitoring of intra- abdominal abscess and then decide about further antibiotics. Vancomycin has been stopped on 11/08. Continue with fluconazole for now. Continue oral vancomycin for at least 10 days after completion of IV antibiotic course. Transfuse if hemoglobin less than 7. Change wound VAC every other day as per surgical directions. Continue with tube feeds at goal rate of 60 cc/h. Monitor renal functions and for hypernatremia. CODE STATUS: Full code DVT prophylaxis: On thousand every 12 hourly. Care discussed in detail with patient's primary team, nurse at bedside. Thank you for involving us in care of Mr. Voss. Please call back with any questions. Discharge plan: Given extensive hospitalization with multiple trips to the OR, prolonged intubation patient will most likely require extensive wound care and rehabilitation along with IV antibiotics to finish a 3-week course and a repeat CT scan afterwards to further characterize intra-abdominal collections. Case management alerted. Patient has been declined by multiple SNF. Referral sent to [facility]. Have tried to do peer to peer for transfer to [facility]. Unable to reach any provider at the insurance. Have left a voice message. Awaiting callback. Attestations Medical Necessity Statement*: As per primary team. Plan to transfer to [facility]/long-term acute facility today for further rehabilitation and wound care Coding Level of Care Code Critical Care >/= 30 minutes Critical care time (in minutes): 50 The high probability of a clinically significant, sudden or life threatening deterioration, as referenced in this documentation, required my full and direct attention, intervention and personal management. The critical care time shown is in addition to time spent performing any reported separately billable procedures and includes the following: [x] Data and vital sign review and interpretation [x ] Patient assessment, examination and intervention [x] Medication orders and management [x] Patient/Family updates as able [x] Care Coordination and Documentation. Diagnoses Ventilator dependent Z99.11 Status post left hemicolectomy Z90.49 Intra-abdominal abscess post-procedure T81.43XA Pneumonia J18.9 Septic shock A41.9; R65.21 C. difficile colitis A04.72 TALON (acute kidney injury) N17.9 Obstructive sleep apnea G47.33 Hypernatremia E87.0 Hypertension I10 Atrial fibrillation with rapid ventricular response I48.91 Anemia D64.9 Hyperkalemia E87.5 Restrictive lung disease due to kyphoscoliosis J98.4; M41.9 COVID-19 U07.1 Pleural effusion J90
--- NOTE | 2022-11-09 14:05 | PC.NURSE ---
Wound Vac off, Kerlex and ABD pads applied to wound, per Dr. Soares.
--- NOTE | 2022-11-09 14:31 | PC.NURSE ---
Report called to Juana Contreras RN. No further questions.
--- NOTE | 2022-11-09 15:37 | PC.NURSE ---
1530 [facility]. Patient on ventilator, VSS, precedex and fentanyl gtt continued. notified earlier.
== END 2022-11-09 15:30 | disposition skilled nursing facility (03) | DRG 329 ==
LOC: ICU 20:04
PROVIDERS: Family Medicine; Hospitalist; Internal Medicine; Student in an Organized Health Care Education/Training Program; Admitting Provider Surgery; PCP Family Medicine; Visit Provider Surgery
PROC: 0DTG4ZZ Resection of Left Large Intestine, Percutaneous Endoscopic Approach (ICD-10-PCS; CPT 44204; principal; 2022-10-08 07:00)
PROC: 0DTG0ZZ Resection of Left Large Intestine, Open Approach (ICD-10-PCS; 2022-10-08 07:00)
PROC: 0D1N0Z4 Bypass Sigmoid Colon to Cutaneous, Open Approach (ICD-10-PCS; CPT 49000; principal; 2022-10-15 13:30)
PROC: 30233K1 Transfusion of Nonautologous Frozen Plasma into Peripheral Vein, Percutaneous Approach (ICD-10-PCS; principal; 2022-11-01 15:00)
DX: C18.5 Malignant neoplasm of splenic flexure (principal); A41.9 Sepsis, unspecified organism; J18.9 Pneumonia, unspecified organism; R65.21 Severe sepsis with septic shock; C77.2 Secondary and unspecified malignant neoplasm of intra-abdominal lymph nodes; J96.12 Chronic respiratory failure with hypercapnia; J96.11 Chronic respiratory failure with hypoxia; Z99.11 Dependence on respirator [ventilator] status; T81.43XA Infection following a procedure, organ and space surgical site, initial encounter; N17.9 Acute kidney failure, unspecified; B37.89 Other sites of candidiasis; E87.0 Hyperosmolality and hypernatremia; I48.19 Other persistent atrial fibrillation; Q24.5 Malformation of coronary vessels; D62 Acute posthemorrhagic anemia; J90 Pleural effusion, not elsewhere classified; F84.5 Asperger's syndrome; E87.4 Mixed disorder of acid-base balance; T81.32XA Disruption of internal operation (surgical) wound, not elsewhere classified, initial encounter; K91.89 Other postprocedural complications and disorders of digestive system; E87.1 Hypo-osmolality and hyponatremia; A04.72 Enterocolitis due to Clostridium difficile, not specified as recurrent; K94.01 Colostomy hemorrhage; G47.33 Obstructive sleep apnea (adult) (pediatric); Z99.89 Dependence on other enabling machines and devices; Z91.199 Patient's noncompliance with other medical treatment and regimen due to unspecified reason; Y95 Nosocomial condition; B96.1 Klebsiella pneumoniae [K. pneumoniae] as the cause of diseases classified elsewhere; I10 Essential (primary) hypertension; E87.5 Hyperkalemia; J98.4 Other disorders of lung; M41.9 Scoliosis, unspecified; Z86.16 Personal history of COVID-19; G89.29 Other chronic pain; M51.36 Other intervertebral disc degeneration, lumbar region; M15.9 Polyosteoarthritis, unspecified; Z87.891 Personal history of nicotine dependence; K76.9 Liver disease, unspecified; E04.9 Nontoxic goiter, unspecified; Z98.1 Arthrodesis status; D75.1 Secondary polycythemia; E78.5 Hyperlipidemia, unspecified; M1A.9XX0 Chronic gout, unspecified, without tophus (tophi); B34.2 Coronavirus infection, unspecified; E87.6 Hypokalemia; R41.82 Altered mental status, unspecified; Z53.31 Laparoscopic surgical procedure converted to open procedure
CPT/HCPCS: 36415; 36416; 36430; 36569; 36592; 36600; 51702; 70450; 71045; 71275; 74018; 74176; 74177; 76604; 78452; 80048; 80051; 80053; 80069; 80202; 82330; 82378; 82607; 82746; 82803; 82805; 82962; 83540; 83550; 83605; 83735; 83880; 84100; 84145; 84443; 84484; 84550; 85014; 85018; 85025; 85362; 85378; 85384; 85610; 85730; 86850; 86900; 86920; 86927; 87040; 87070; 87075; 87077; 87086; 87106; 87186; 87205; 87486; 87493; 87581; 87633; 87641; 88305; 88309; 93005; 93017; 94002; 94003; 94640; 94799; 96372; 96374; 96376; 97110; 97116; 97161; 97530; 99232; 99233; A4222; A9500; C1751; C9113; J0171; J0282; J0330; J0360; J0461; J0610; J0694; J1100; J1160; J1170; J1450; J1644; J1650; J1756; J1815; J1940; J2185; J2250; J2370; J2405; J2543; J2704; J2710; J2765; J2785; J3010; J3370; J3475; J3480; J3490; J7030; J7040; J7042; J7050; J7060; J7070; J7613; J7614; J7626; J7644; J7799; P9016; P9017; P9035; P9045; P9047; Q9967

== ENCOUNTER → 2022-12-11 16:47 | Outpatient (BNVA) | payer MEDICARE, SELFPAY | PROVIDERS: PCP Family Medicine; Visit Provider Surgery | DX: T81.43XA Infection following a procedure, organ and space surgical site, initial encounter (principal); C18.9 Malignant neoplasm of colon, unspecified; X58.XXXA Exposure to other specified factors, initial encounter | CPT/HCPCS: 99024; 99212 ==

== ENCOUNTER 2023-02-04 11:12 | Emergency (ER) | payer MEDICARE, SELFPAY ==
[2023-02-04] VITALS (15 sets, daily range): BP systolic 112–143; BP diastolic 76–90; PULSE 91–98; RESP 16; TEMP 36.9; O2SAT 91–99
--- NOTE | 2023-02-04 12:33 | W.ED.GENADLT ---
HPI - General Adult General: Chief complaint: General Medical Stated complaint: wound care Time Seen by Provider: 02/04/23 11:13 History of Present Illness: Patient was sent over here for wound care for abnormal vital signs. Patient says when he stands up his blood pressure goes low and his heart rate goes up. Patient says this is not anything new and has been going on for couple weeks. Wound care did pack the patient's wound but did not debride it any and sent him over here. Patient does state he is on midodrine but has not taking it for several days. MD complaint: Normal vital signs, orthostatic hypotension Onset (ago): day(s) Severity: mild Relieving factors: medication Exacerbating factors: other (Not taking medicine) Associated symptoms: Reports no associated symptoms; Deny chest pain, dyspnea, nausea, rash, palpitations or vomiting Treatments prior to arrival: none Review of Systems General: Reports: 10 or more systems reviewed and unremarkable except in HPI and below Const: Denies: fever(s) or chills Eyes: Denies: change in vision or photophobia ENMT: Denies: throat pain or odynophagia Card: Denies: chest pain, palpitations or irregular heart rhythm Resp: Denies: dyspnea, productive cough or non-productive cough GI: Denies: abdominal pain, nausea, vomiting or hematemesis : Denies: flank pain, difficulty urinating or dysuria Musc: Denies: neck pain, back pain or extremity pain Skin/Breast: Denies: rash PFSH ED PFSH: Medical History Afib Allergies Asperger syndrome mild Asthma Cardiomegaly Chronic low back pain Chronic pain syndrome Chronic sinusitis of both maxillary sinuses COVID-19 (~08/2022) hospitalized in [place] COVID-19 determined by clinical diagnostic criteria Degenerative joint disease (DJD) of lumbar spine Dyslipidemia Erectile dysfunction Gout Hypertension 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 Obstructive sleep apnea Opioid contract exists previous Osteoarthritis of hands, bilateral Osteoarthritis of knees, bilateral Polycythemia Restrictive lung disease due to kyphoscoliosis Right renal stone Substernal goiter Suspected exposure to asbestos Testosterone deficiency On TRT for 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 Surgical History H/O ankle fusion H/O arthroscopic knee surgery H/O wrist surgery History of appendectomy History of back surgery History of shoulder surgery S/P ureteral stent placement Status post left hemicolectomy (10/08/22) laparoscopic converted to open, with splenic flexure takedown and right colon mobilization, primary anastamosis Status post left hemicolectomy Family History Grandfather CAD (coronary artery disease) Family/Other Cancer Grandmother Dementia Stroke Mother Lung disease Other Hypertension Denies family history of Rheumatoid arthritis Diabetes Lupus Clotting disorder Hyperlipidemia Chronic kidney disease (CKD) Suicide Anesthesia complication Bleeding disorder Social History Smoking and tobacco status: former smoker Quit status (tobacco): has quit using tobacco Year quit tobacco: 1975 [id number] Second hand smoke exposure: Yes Alcohol intake: never Substance/Drug Use: never Lives independently: Yes Current occupational status: retired Pets and animals: Yes Do you think of yourself as: Straight/Heterosexual Current gender identity: Male Physical Exam Const: COMMON NORMALS: no acute distress, average body habitus, patient oriented x3, no limitations, healthy appearing, alert and well nourished HENMT: COMMON NORMALS: normocephalic, atraumatic, hearing grossly normal bilaterally, external ears normal and Normal nasal mucous membranes and turbinates present HEAD & SCALP: normocephalic and atraumatic NOSE: Normal nasal mucous membranes and turbinates present EXTERNAL EAR: Yes external ears normal Eye: COMMON NORMALS: Equal, round and reactive pupils present, EOMs intact bilaterally, conjunctivae normal and no scleral icterus CONJUNCTIVA: Yes conjunctivae normal PUPIL: Yes Equal, round and reactive pupils present Neck/C-Spine: COMMON NORMALS: full ROM, no lymphadenopathy, supple, no meningeal signs, no JVD and Thyroid normal THYROID: Thyroid normal Lymph: LYMPHATIC: no lymphadenopathy noted Chest: COMMONS NORMALS: normal inspection of the chest and normal palpation of entire chest wall Resp: COMMON NORMALS: normal respiratory effort, No retractions, No use of accessory muscles and clear to auscultation bilaterally AUSCULTATION: clear to auscultation bilaterally Cardio: COMMON NORMALS: no JVD, regular rate, regular rhythm, S1 normal heart sound present and S2 normal heart sound present RATE: regular rate RHYTHM: regular rhythm HEART SOUNDS: S1 normal heart sound present and S2 normal heart sound present GI: COMMON NORMALS: Soft to palpation, non-tender, No hepatosplenomegaly present and no masses PALPATION: Yes Soft to palpation and Yes No hepatosplenomegaly present OTHER: Healing surgical wound mid abdomen minimal drainage no purulent drainage no odor. Back/Pelvis: OTHER: Wound to superior buttock region with packing noted in place mildly tender to palpate, dressing clean dry and intact. Neuro: COMMON NORMALS: patient oriented x3 SENSORIUM/ORIENTATION: Yes alert MENINGEAL SIGNS: Yes no meningeal signs Course Vital Signs: Vital signs: Vital Signs Temperature 98.4 F 02/04/23 11:19 Pulse Rate 98 02/04/23 11:19 Respiratory Rate 16 02/04/23 11:19 Blood Pressure 112/76 02/04/23 12:30 Pulse Oximetry 97 02/04/23 12:30 MDM - General Adult Medical Decision Making Patient appears to had orthostatic hypotension while he was in wound care with his pressure getting all the way down to the 80s and heart rate getting up in the 130s per the wound care nurse Shobha. Patient denies any symptomatology or complications at this moment. Patient does admit to not taking his midodrine for the last several days which may have been a factor in this. Lab work was obtained which was essentially benign other than a mildly elevated white count 12.1 and mildly elevated platelets of 563. These were discussed with the patient and his . A new prescription for midodrine will be wrote for the person. Patient is to follow-up with wound care at his neck scheduled appointment in approximately 1 week. Patient is to follow-up with his family practice doctor for more midodrine prescriptions within the next 1 month. Differential Diagnosis Orthostatic hypotension, sepsis, wound infection Medical Records I reviewed the patient's medical records. Lab Data I reviewed the patient's lab results. 02/04/23 12:40 02/04/23 12:40 Laboratory Results WBC 12.1 10^3/uL (4.0-10.0) H 02/04/23 12:40 RBC 4.20 10^6/uL (4.1-5.3) 02/04/23 12:40 Hgb 12.3 g/dL (11.7-16.6) 02/04/23 12:40 Hct 40.5 % (42.0-52.0) L 02/04/23 12:40 MCV 96.4 fl (80-94) H 02/04/23 12:40 MCH 29.3 pg (28.0-34.0) 02/04/23 12:40 MCHC 30.4 g/dL (30.0-36.0) 02/04/23 12:40 RDW 14.7 % (12.1-15.1) 02/04/23 12:40 Plt Count 563 10^3/cmm (130-400) H 02/04/23 12:40 MPV 8.8 fL (7.4-10.4) 02/04/23 12:40 Neut % (Auto) 73.8 % 02/04/23 12:40 Lymph % (Auto) 13.9 % 02/04/23 12:40 Meagher % (Auto) 8.6 % 02/04/23 12:40 Eos % (Auto) 1.5 % 02/04/23 12:40 Baso % (Auto) 0.6 % 02/04/23 12:40 Neut # (Auto) 8.91 10^3/uL (1.8-7.7) H 02/04/23 12:40 Lymph # (Auto) 1.7 10^3/uL (0.8-4.8) 02/04/23 12:40 Meagher # (Auto) 1.0 10^3/uL (0.2-0.9) H 02/04/23 12:40 Eos # (Auto) 0.2 10^3/uL (0.0-0.8) 02/04/23 12:40 Baso # (Auto) 0.1 10^3/uL (0.0-0.1) 02/04/23 12:40 Nucleated RBC % (auto) 0 % 02/04/23 12:40 Nucleated RBCs # 0.0 /100WBC 02/04/23 12:40 Sodium 136 mmol/L (136-145) 02/04/23 12:40 Potassium 3.9 mmol/L (3.5-5.1) 02/04/23 12:40 Chloride 97 mmol/L (98-107) L 02/04/23 12:40 Carbon Dioxide 29 mmol/L (22-29) 02/04/23 12:40 Anion Gap 13.9 (5-19) 02/04/23 12:40 BUN 10 mg/dL (8-23) 02/04/23 12:40 Creatinine 1.1 mg/dL (0.7-1.2) 02/04/23 12:40 GFR Calculation 66.8 mL/min (90-130) L 02/04/23 12:40 Glucose 99 mg/dL (65-115) 02/04/23 12:40 Calculated Osmolality 281 mOsm/kg (285-295) L 02/04/23 12:40 Calcium 9.6 mg/dL (8.5-10.5) 02/04/23 12:40 Magnesium 1.9 mg/dL (1.7-2.3) 02/04/23 12:40 Total Bilirubin 0.3 mg/dL (0.15-1.2) 02/04/23 12:40 AST 14 U/L (0-40) 02/04/23 12:40 ALT 10 U/L (0-41) 02/04/23 12:40 Alkaline Phosphatase 78 U/L (40-130) 02/04/23 12:40 Total Protein 7.4 g/dL (6.6-8.7) 02/04/23 12:40 Albumin 3.3 g/dL (3.5-5.2) L 02/04/23 12:40 Globulin 4.1 g/dL (1.3-4.6) 02/04/23 12:40 Discharge Plan Discharge Patient Disposition: Home Clinical Impression: Orthostatic hypotension Condition: Stable Prescriptions: New midodrine 5 mg tablet 5 mg PO BID Qty: 60 0RF Rx Instructions: do not give last dose of day after 6PM or within 4 hrs of bedtime No Action allopurinol 300 mg tablet 300 mg PO DAILY folic acid 1 mg tablet 1 mg PO DAILY@0 multivitamin Tablet 6 tab PO DAILY@2199 biotin 1 mg tablet 1 mg PO DAILY [id number] bor 750 mg-100 mg- 25 mcg tablet 2 tab PO DAILY lycopene 10 mg capsule 10 mg PO DAILY Rx Instructions: administer after a meal resveratrol 250 mg capsule 250 mg PO QPM saw palmetto 500 mg capsule 500 mg PO DAILY Rx Instructions: give with food (meal/snack) lovastatin 40 mg tablet 40 mg PO BEDTIME Symbicort 80-4.5 mcg/actuation HFA aerosol inhaler 2 puff INHALATION BID@ Qty: 10.2 3RF testosterone cypionate 200 mg/mL oil 120 mg IM Q7D Qty: 10 5RF Rx Instructions: ON TUESDAYS vitamin E 1,000 unit Capsule 1,000 unit PO DAILY@2199 sennosides [senna] 8.6 mg Tablet 8.6 mg PO DAILY PRN (Reason: Constipation) ascorbic acid (vitamin C) [Vitamin C] 1,000 mg Tablet 1,000 mg PO DAILY@2200 loratadine [Claritin] 10 mg tablet 10 mg PO DAILY PRN (Reason: Allergy Symptoms) tadalafil [Cialis] 20 mg tablet 20 mg PO DAILY PRN (Reason: sexual activity) Rx Instructions: administer approximately 30min before sexual activity; NO NITROGLYCERIN! Xarelto 20 mg tablet 20 mg PO QPM lisinopril 20 mg tablet 20 mg PO BEDTIME acetaminophen 500 mg Tablet 500 mg PO Q6H PRN (Reason: Pain) triamcinolone acetonide 0.1 % Cream 1 applic TOPICAL EVERY OTHER DAY trazodone 150 mg tablet 300 mg PO BEDTIME Vitamin D3 10 mcg (400 unit) Capsule 10 mcg PO DAILY melatonin 5 mg Tablet 5 mg PO BEDTIME chromium picolinate 1,000 mcg Tablet 1,000 mcg PO DAILY bisoprolol-hydrochlorothiazide 10-6.25 mg tablet 2 tab PO BEDTIME ketoconazole 2 % shampoo 1 applic TOPICAL DAILY PRN (Reason: Rash) Discharge Orders: Discharge ED (Routine); Ordered 02/04/23 Ordered By: Tien Aparicio Referrals: Al Álvarez MD [Primary Care Provider] - 1 week Patient Instructions: Hypotension (ED) Activity Restrictions/Additional Instructions: Please take the midodrine as directed. Please follow-up with wound care at your neck scheduled appointment. Please continue the wet-to-dry dressings twice a day for your wounds. Please follow-up with primary care within 1 month for additional midodrine prescriptions. Coding Level of Care Code ED Accounts Receivable Assistant for Scarlett San
[2023-02-04 12:54] LABS: Basophils # 0.1 10^3/uL (0.0-0.1); Basophils % 0.6 %; Eosinophils # 0.2 10^3/uL (0.0-0.8); Eosinophils % 1.5 %; Hematocrit 40.5 % (42.0-52.0); Hemoglobin 12.3 g/dL (11.7-16.6); Lymphocytes # 1.7 10^3/uL (0.8-4.8); Lymphocytes % 13.9 %; Mean Corpuscular HGB Conc 30.4 g/dL (30.0-36.0); Mean Corpuscular Hemoglobin 29.3 pg (28.0-34.0); Mean Corpuscular Volume 96.4 fl (80-94); Mean Platelet Volume 8.8 fL (7.4-10.4); Monocytes % 8.6 %; Neutrophils # 8.91 10^3/uL (1.8-7.7); Neutrophils % 73.8 %; Nucleated Red Blood Cells % 0 %; Platelet Count 563 10^3/cmm (130-400); Red Cell Distribution Width 14.7 % (12.1-15.1); White Blood Count 12.1 10^3/uL (4.0-10.0)
[2023-02-04 13:11] LABS: Alanine Aminotransferase 10 U/L (0-41); Albumin Level 3.3 g/dL (3.5-5.2); Alkaline Phosphatase 78 U/L (40-130); Anion Gap 13.9 (5-19); Aspartate Amino Transferase 14 U/L (0-40); Blood Urea Nitrogen 10 mg/dL (8-23); Calcium 9.6 mg/dL (8.5-10.5); Carbon Dioxide 29 mmol/L (22-29); Chloride 97 mmol/L (98-107); Globulin 4.1 g/dL (1.3-4.6); Glomerular Filtration Rate 66.8 mL/min (90-130); Glucose 99 mg/dL (65-115); Magnesium 1.9 mg/dL (1.7-2.3); Osmolality Calculated 281 mOsm/kg (285-295); Potassium 3.9 mmol/L (3.5-5.1); Sodium 136 mmol/L (136-145); Total Bilirubin 0.3 mg/dL (0.15-1.2); Total Protein 7.4 g/dL (6.6-8.7)
--- NOTE | 2023-02-04 13:25 | PC.PHAR ---
Addendum entered by Isabelle Villanueva 02/04/23 13:28: some of the medications that were confirmed were meds that the for sure knew the pt had Original Note: pt was discharged while waiting on paperwork from [facility] pt was discharged from [facility] on 01/19/23-per autumn quintana from [facility] states the pt was only discharged with 2d/s of meds-
== END 2023-02-04 13:31 | disposition home or self-care (01) ==
PROVIDERS: Emergency Provider Emergency Medicine; PCP Family Medicine
DX: I95.1 Orthostatic hypotension (principal); Z87.891 Personal history of nicotine dependence; E78.5 Hyperlipidemia, unspecified; I10 Essential (primary) hypertension; I96 Gangrene, not elsewhere classified; L89.322 Pressure ulcer of left buttock, stage 2
CPT/HCPCS: 36415; 80053; 83735; 85025; 99213; 99283

== ENCOUNTER 2023-02-05 15:12 | Oncology outpatient (recurring) (ONCR) | payer MEDICARE, SELFPAY | END 2023-02-27 23:59 | disposition home or self-care (01) | LOC: ONCMED 15:14 | PROVIDERS: PCP Family Medicine; Visit Provider Internal Medicine Medical Oncology | DX: C18.5 Malignant neoplasm of splenic flexure (principal); Z90.49 Acquired absence of other specified parts of digestive tract; Z87.891 Personal history of nicotine dependence | CPT/HCPCS: 36415; 82378; 99024; 99205 ==

== ENCOUNTER 2023-02-07 13:08 | Outpatient (CLI) | payer MEDICARE, SELFPAY | END 2023-02-07 13:09 | disposition home or self-care (01) | LOC: LAB 13:11 | PROVIDERS: PCP Family Medicine; Visit Provider Urology | DX: E29.1 Testicular hypofunction (principal); D75.1 Secondary polycythemia; Z79.890 Hormone replacement therapy; N20.0 Calculus of kidney; Z87.442 Personal history of urinary calculi | CPT/HCPCS: 81003; 84403; 85025; 99213 ==

== ENCOUNTER → 2023-02-19 09:32 | Outpatient (BNVA) | payer MEDICARE, SELFPAY | PROVIDERS: PCP Family Medicine; Visit Provider Nurse Practitioner Family | DX: I96 Gangrene, not elsewhere classified (principal); L89.323 Pressure ulcer of left buttock, stage 3 | CPT/HCPCS: 87070; 87077; 87186; 97597; 99024 ==

== ENCOUNTER 2023-02-20 11:19 | Outpatient (CLI) | payer MEDICARE, SELFPAY ==
--- NOTE | 2023-02-20 11:45 | MR_ITS ---
WS: [id number] MRI PELVIS without CONTRAST. COMPARISON: None Multiplanar, multisequence imaging is performed without contrast. Unable to achieve IV access for po stcontrast imaging. History: Decubitus ulcer LEFT posterior pelvis. History of colon cancer. There is a soft tissue tract consistent with a known decubitus ulcer beginning posterior LEFT pelvis just to the LEFT of midline. Opening of the soft tissues tract is 9 mm. The tract extends over a darrell th of 14 cm x 6.1 cm. There is heterogeneity with low signal centrally and variable heterogeneity wit hin the wall. No contrast was given as IV access was not obtained. Decubitus ulcer extends to the LEF T ischial tuberosity. There is edema extending throughout a large portion of the LEFT gluteus twin . This edema is contiguous with the ulceration tract. There is no focal fluid collection within the m uscle. There is a very small amount of edema in the LEFT erector spinae muscle at the level of the sacrum. T here is also a small amount of marrow edema in the very distal LEFT ischial tuberosity which is adjac ent to the soft tissue ulcerated tract. Minimally distended urinary bladder. Mild prostate gland hypertrophy. MR/MR pelvis wo con* [id number] IMPRESSION: 1. LEFT posterior pelvis decubitus ulcer tract extends over length of 14 cm x 6.1 cm. Tract extends to the LEFT ischial tuberosity were there is a small amou nt of marrow edema. No contrast given therefore cannot evaluate for osteomyelit is. Suspicious for infection due to the edema. 2. Edema within large portion of the LEFT gluteus twin muscle and the LEFT erector spinae muscle at the sacral level.
== END 2023-02-20 11:20 | disposition home or self-care (01) ==
PROVIDERS: PCP Family Medicine; Visit Provider Nurse Practitioner Family
DX: L89.153 Pressure ulcer of sacral region, stage 3 (principal)
CPT/HCPCS: 11042; 72195

== ENCOUNTER 2023-02-22 16:37 | Outpatient (CLI) | payer MEDICARE, SELFPAY ==
[2023-02-22 17:30] LABS: Basophils # 0.1 10^3/uL (0.0-0.1); Basophils % 0.7 %; Eosinophils # 0.4 10^3/uL (0.0-0.8); Eosinophils % 6.1 %; Hematocrit 39.1 % (42.0-52.0); Hemoglobin 12.2 g/dL (11.7-16.6); Lymphocytes # 1.7 10^3/uL (0.8-4.8); Lymphocytes % 24.1 %; Mean Corpuscular HGB Conc 31.2 g/dL (30.0-36.0); Mean Corpuscular Volume 96.1 fl (80-94); Mean Platelet Volume 9.5 fL (7.4-10.4); Monocytes % 13.5 %; Neutrophils # 3.89 10^3/uL (1.8-7.7); Nucleated Red Blood Cells % 0 %; Platelet Count 306 10^3/cmm (130-400); Red Blood Count 4.07 10^6/uL (4.1-5.3); Red Cell Distribution Width 15.1 % (12.1-15.1); White Blood Count 7.1 10^3/uL (4.0-10.0)
[2023-02-22 17:34] LABS: Alanine Aminotransferase 14 U/L (0-41); Albumin Level 3.6 g/dL (3.5-5.2); Alkaline Phosphatase 81 U/L (40-130); Anion Gap 15.7 (5-19); Aspartate Amino Transferase 15 U/L (0-40); Blood Urea Nitrogen 12 mg/dL (8-23); Calcium 9.1 mg/dL (8.5-10.5); Carbon Dioxide 24 mmol/L (22-29); Chloride 102 mmol/L (98-107); Globulin 3.9 g/dL (1.3-4.6); Glomerular Filtration Rate 60.2 mL/min (90-130); Glucose 114 mg/dL (65-115); Osmolality Calculated 285 mOsm/kg (285-295); Potassium 4.7 mmol/L (3.5-5.1); Sodium 137 mmol/L (136-145); Total Bilirubin 0.2 mg/dL (0.15-1.2); Total Protein 7.5 g/dL (6.6-8.7)
== END 2023-02-22 16:38 | disposition home or self-care (01) ==
PROVIDERS: PCP Family Medicine; Visit Provider Nurse Practitioner Family
DX: L89.153 Pressure ulcer of sacral region, stage 3 (principal)
CPT/HCPCS: 36415; 80053; 85025

== ENCOUNTER → 2023-02-26 08:41 | Outpatient (BNVA) | payer MEDICARE, SELFPAY | PROVIDERS: PCP Family Medicine; Visit Provider Nurse Practitioner Family | DX: I96 Gangrene, not elsewhere classified (principal); L89.323 Pressure ulcer of left buttock, stage 3 | CPT/HCPCS: 97597 ==

== ENCOUNTER 2023-03-02 05:55 | Outpatient (CLI) | payer MEDICARE, SELFPAY ==
[2023-02-07 14:21] LABS: Basophils # 0.1 10^3/uL (0.0-0.1); Basophils % 0.7 %; Eosinophils # 0.3 10^3/uL (0.0-0.8); Eosinophils % 2.6 %; Hematocrit 41.9 % (42.0-52.0); Hemoglobin 12.6 g/dL (11.7-16.6); Lymphocytes # 2.1 10^3/uL (0.8-4.8); Lymphocytes % 20.8 %; Mean Corpuscular HGB Conc 30.1 g/dL (30.0-36.0); Mean Corpuscular Hemoglobin 29.1 pg (28.0-34.0); Mean Corpuscular Volume 96.8 fl (80-94); Monocytes # 0.9 10^3/uL (0.2-0.9); Monocytes % 9.4 %; Neutrophils # 6.53 10^3/uL (1.8-7.7); Neutrophils % 65.8 %; Nucleated Red Blood Cells % 0 %; Platelet Count 592 10^3/cmm (130-400); Red Blood Count 4.33 10^6/uL (4.1-5.3); Red Cell Distribution Width 14.8 % (12.1-15.1); White Blood Count 9.9 10^3/uL (4.0-10.0)
[2023-02-07 16:08] LABS: Testosterone Total 181.6 ng/dL (193-740)
--- NOTE | 2023-03-02 09:30 | PETR_ITS ---
PROCEDURE INFORMATION: Exam: PET/CT Skull Base to Mid-thigh Exam date and time: 03/02/2023 10:02 AM Age: 68 years old Clinical indication: Condition or disease; Primary cancer: Malignant neoplasm of splenic flexure; Initial oncological staging assessment. History of left hemicolectomy. LABS AND CLINICAL REPORTS: Glucose: 127 mg/dl Treatment strategy for malignancy (PET staging): Initial Staging (PI) TECHNIQUE: Imaging protocol: Following at least four-hour fasting and following the injection of radiopharmaceutical, low dose CT images were obtained. Then, PET images were obtained. Attenuation corrected images were constructed using the CT scan. Fused images of PET and CT were reviewed. The standardized uptake values (SUV) reported below are maximum values within a region of interest, expressed in gm/ml. Exam includes orbital meatal line to mid-thigh. Radiopharmaceutical: 14.89 mCi F-18 FDG (Fluorodeoxyglucose), IV. Time of imaging post radiopharmaceutical administration: 1 hour Injection site: Not specified COMPARISON: MRI pelvis 02/20/2023, CT abdomen pelvis wo con [id number] 12/05/2022 12:22 PM, CTA chest 11/01/2022 FINDINGS: Brain: Visualized brain has normal physiologic uptake. Pharynx: No abnormal uptake. Larynx: No abnormal uptake. Thyroid: There is a large lobulated low-density nodule in the left thyroid lobe without elevated uptake. Lungs, pleura and trachea: No abnormal uptake. Heart: Normal physiologic uptake. Mediastinal space: No abnormal uptake. Liver: A radiotracer avid lesion in the right lobe of the liver is present, SUV max 20.8 within an ovoid low-density lesion measuring approximately 5.7 x 3.5 cm on series 3, image 96. This lesion appears to been present on the prior CT of 12/05/2022 where was somewhat obscured by artifact, measuring approximately 3.0 x 2.8 cm in the axial plane on the prior CT. Gallbladder and bile ducts: No abnormal uptake. Pancreas: No abnormal uptake. Spleen: No abnormal uptake. Adrenal glands: No abnormal uptake. Kidneys and ureters: Normal physiologic uptake. A non radiotracer avid rounded hypodense structure arising from the posterior aspect of the left renal superior pole measures 2.8 cm in diameter. An additional non radiotracer avid rounded lesion arises anteriorly from the left renal inferior pole measuring 1.4 cm in diameter on series 3, image 105. A stone in the superior pole of the right kidney measures 7 mm. No hydronephrosis. Stomach and bowel: No abnormal uptake. Postoperative changes of colectomy with a residual segment of the right colon. Vasculature: No abnormal uptake. Diffuse atherosclerotic changes are noted. Lymph nodes: Calcified mediastinal and right hilar lymph nodes are noted. No lymphadenopathy or elevated uptake. Bones/joints: No abnormal uptake in the visualized axial and appendicular skeleton. Moderate curvature of the thoracic spine convex to the left and curvature of the lumbar spine convex to the right is noted. Postoperative changes of posterior metallic fusion in the thoracic and lumbar spine are noted. Soft tissues: Elevated uptake is identified in the periphery of a large thick-walled decubitus ulcer in the medial left gluteal region measuring up to approximately 7.1 x 4.1 cm in the axial plane on series 3, image 148 by 13 cm superior to inferior., SUV max 11.5. Mild benign-appearing asymmetric uptake in the right thigh anterior compartment musculature, SUV max 3.9. Benign-appearing muscular uptake the posterior neck. There is what appears to be hernia repair mesh deep to this superior abdominal rectus abdominus sheath. A colostomy site in the right lower quadrant is present. METRICS: Mediastinal blood pool: SUV max 2.8 PET/PET [facility] INITIAL [id number] IMPRESSION: 1. A radiotracer avid low-density lesion in the right lobe of the liver is noted, highly concerning for malignancy, likely metastatic. 2. Elevated uptake in the region of a previously noted decubitus ulcer in the posteromedial left gluteal region, likely related to inflammatory or infectious involvement. No evidence of underlying abnormal uptake in the adjacent osseous structures. 3. Simple appearing cyst in the left kidney. 4. Nonobstructing right nephrolithiasis. 5. Large left thyroid nodule without elevated uptake, statistically benign. 6. Additional nonurgent findings as detailed above.
== END 2023-03-02 05:56 | disposition home or self-care (01) ==
PROVIDERS: PCP Family Medicine; Visit Provider Internal Medicine Medical Oncology
DX: C18.5 Malignant neoplasm of splenic flexure (principal); K76.9 Liver disease, unspecified; L89.329 Pressure ulcer of left buttock, unspecified stage; N28.1 Cyst of kidney, acquired; N20.0 Calculus of kidney; E04.1 Nontoxic single thyroid nodule; Z90.49 Acquired absence of other specified parts of digestive tract
CPT/HCPCS: 78815; 81003; 84403; 85025; 99213; A9552

== ENCOUNTER → 2023-03-05 09:02 | Outpatient (BNVA) | payer MEDICARE, SELFPAY | PROVIDERS: PCP Family Medicine; Visit Provider Nurse Practitioner Family | DX: I96 Gangrene, not elsewhere classified (principal); L89.323 Pressure ulcer of left buttock, stage 3 | CPT/HCPCS: 11042; 97605; A6237; A6250 ==

== ENCOUNTER 2023-03-06 14:03 | Oncology outpatient (recurring) (ONCR) | payer MEDICARE, SELFPAY | END 2023-03-29 23:59 | disposition home or self-care (01) | PROVIDERS: PCP Family Medicine; Visit Provider Internal Medicine Medical Oncology | DX: C18.5 Malignant neoplasm of splenic flexure (principal); C77.8 Secondary and unspecified malignant neoplasm of lymph nodes of multiple regions; C78.7 Secondary malignant neoplasm of liver and intrahepatic bile duct; R97.0 Elevated carcinoembryonic antigen [CEA]; Z87.891 Personal history of nicotine dependence | CPT/HCPCS: 99214 ==

== ENCOUNTER → 2023-03-08 08:39 | Outpatient (BNVA) | payer MEDICARE, SELFPAY | PROVIDERS: PCP Family Medicine; Visit Provider Thoracic Surgery (Cardiothoracic Vascular Surgery) | DX: L89.313 Pressure ulcer of right buttock, stage 3 (principal) | CPT/HCPCS: 97605; A6237; A6250 ==

== ENCOUNTER → 2023-03-11 10:36 | Outpatient (BNVA) | payer MEDICARE, SELFPAY | PROVIDERS: PCP Family Medicine; Visit Provider Thoracic Surgery (Cardiothoracic Vascular Surgery) | DX: I96 Gangrene, not elsewhere classified (principal); L89.323 Pressure ulcer of left buttock, stage 3 | CPT/HCPCS: 11042; 97605; A6446 ==

== ENCOUNTER → 2023-03-13 14:30 | Outpatient (BNVA) | payer MEDICARE, SELFPAY | PROVIDERS: PCP Family Medicine; Visit Provider Thoracic Surgery (Cardiothoracic Vascular Surgery) | DX: L89.313 Pressure ulcer of right buttock, stage 3 (principal) | CPT/HCPCS: A6237; A6250 ==

== ENCOUNTER → 2023-03-15 14:24 | Outpatient (BNVA) | payer MEDICARE, SELFPAY | PROVIDERS: PCP Family Medicine; Visit Provider Thoracic Surgery (Cardiothoracic Vascular Surgery) | DX: L89.313 Pressure ulcer of right buttock, stage 3 (principal) | CPT/HCPCS: 97605 ==

== ENCOUNTER → 2023-03-18 10:42 | Outpatient (BNVA) | payer MEDICARE, SELFPAY | PROVIDERS: PCP Family Medicine; Visit Provider Thoracic Surgery (Cardiothoracic Vascular Surgery) | DX: I96 Gangrene, not elsewhere classified (principal); L89.322 Pressure ulcer of left buttock, stage 2 | CPT/HCPCS: 11042; 97606; A6237 ==

== ENCOUNTER → 2023-03-20 15:42 | Outpatient (BNVA) | payer MEDICARE, SELFPAY | PROVIDERS: PCP Family Medicine; Visit Provider Thoracic Surgery (Cardiothoracic Vascular Surgery) | DX: L89.313 Pressure ulcer of right buttock, stage 3 (principal) | CPT/HCPCS: 97605; A6237; A6250 ==

== ENCOUNTER → 2023-03-22 11:11 | Outpatient (BNVA) | payer MEDICARE, SELFPAY | PROVIDERS: PCP Family Medicine; Visit Provider Thoracic Surgery (Cardiothoracic Vascular Surgery) | DX: L89.313 Pressure ulcer of right buttock, stage 3 (principal) | CPT/HCPCS: 97605; A6237; A6250 ==

== ENCOUNTER → 2023-03-25 10:43 | Outpatient (BNVA) | payer MEDICARE, SELFPAY | PROVIDERS: PCP Family Medicine; Visit Provider Thoracic Surgery (Cardiothoracic Vascular Surgery) | DX: L89.313 Pressure ulcer of right buttock, stage 3 (principal) | CPT/HCPCS: 11042; 97605; A6237 ==

== ENCOUNTER → 2023-03-28 15:48 | Outpatient (BNVA) | payer MEDICARE, SELFPAY | PROVIDERS: PCP Family Medicine; Visit Provider Nurse Practitioner Family | DX: I96 Gangrene, not elsewhere classified (principal); L89.323 Pressure ulcer of left buttock, stage 3 | CPT/HCPCS: 97605 ==

== ENCOUNTER → 2023-04-01 14:54 | Outpatient (BNVA) | payer MEDICARE, SELFPAY | PROVIDERS: PCP Family Medicine; Visit Provider Thoracic Surgery (Cardiothoracic Vascular Surgery) | DX: I96 Gangrene, not elsewhere classified (principal); L89.323 Pressure ulcer of left buttock, stage 3 | CPT/HCPCS: 11042 ==

== ENCOUNTER → 2023-04-03 15:51 | Outpatient (BNVA) | payer MEDICARE, SELFPAY | PROVIDERS: PCP Family Medicine; Visit Provider Thoracic Surgery (Cardiothoracic Vascular Surgery) | DX: L89.313 Pressure ulcer of right buttock, stage 3 (principal) | CPT/HCPCS: 97605; A6237; A6250 ==

== ENCOUNTER → 2023-04-05 09:33 | Outpatient (BNVA) | payer MEDICARE, SELFPAY | PROVIDERS: PCP Family Medicine; Visit Provider Thoracic Surgery (Cardiothoracic Vascular Surgery) | DX: I96 Gangrene, not elsewhere classified (principal); L89.323 Pressure ulcer of left buttock, stage 3 | CPT/HCPCS: 97605; A6237; A6250 ==

== ENCOUNTER → 2023-04-08 15:46 | Outpatient (BNVA) | payer MEDICARE, SELFPAY | PROVIDERS: PCP Family Medicine; Visit Provider Thoracic Surgery (Cardiothoracic Vascular Surgery) | DX: I96 Gangrene, not elsewhere classified (principal); L89.323 Pressure ulcer of left buttock, stage 3 | CPT/HCPCS: 11042; 97605; A6237; A6250 ==

== ENCOUNTER → 2023-04-09 09:11 | Outpatient (BNVA) | payer MEDICARE, SELFPAY | PROVIDERS: PCP Family Medicine; Visit Provider Surgery | DX: R16.0 Hepatomegaly, not elsewhere classified (principal); C18.9 Malignant neoplasm of colon, unspecified; L89.153 Pressure ulcer of sacral region, stage 3 | CPT/HCPCS: 99213 ==

== ENCOUNTER → 2023-04-11 14:41 | Outpatient (BNVA) | payer MEDICARE, SELFPAY | PROVIDERS: PCP Family Medicine; Visit Provider Nurse Practitioner Family | DX: L89.313 Pressure ulcer of right buttock, stage 3 (principal) | CPT/HCPCS: 11042; 97605; A6237; A6250 ==

== ENCOUNTER → 2023-04-15 13:05 | Outpatient (BNVA) | payer MEDICARE, SELFPAY | PROVIDERS: PCP Family Medicine; Visit Provider Thoracic Surgery (Cardiothoracic Vascular Surgery) | DX: I96 Gangrene, not elsewhere classified (principal); L89.323 Pressure ulcer of left buttock, stage 3 | CPT/HCPCS: 11042; 97605; A6237; A6250 ==

== ENCOUNTER → 2023-04-16 10:06 | Outpatient (BNVA) | payer MEDICARE, SELFPAY | PROVIDERS: PCP Family Medicine; Visit Provider Internal Medicine Cardiovascular Disease | DX: I48.91 Unspecified atrial fibrillation (principal); D64.9 Anemia, unspecified; G47.33 Obstructive sleep apnea (adult) (pediatric); E78.5 Hyperlipidemia, unspecified; C18.9 Malignant neoplasm of colon, unspecified; I11.9 Hypertensive heart disease without heart failure; Z87.891 Personal history of nicotine dependence | CPT/HCPCS: 99214 ==

== ENCOUNTER 2023-04-17 06:38 | Oncology outpatient (recurring) (ONCR) | payer MEDICARE, SELFPAY ==
[2023-04-16 13:03] LABS: Anion Gap 12.3 (5-19); Blood Urea Nitrogen 13 mg/dL (8-23); Carbon Dioxide 28 mmol/L (22-29); Chloride 102 mmol/L (98-107); Glomerular Filtration Rate 74.3 mL/min (90-130); Glucose 126 mg/dL (65-115); Potassium 4.3 mmol/L (3.5-5.1); Sodium 138 mmol/L (136-145)
[2023-04-16 13:04] LABS: Calcium 9.4 mg/dL (8.5-10.5); NT Pro B Type Natriuretic Pept 1114 pg/mL (0-125); Osmolality Calculated 288 mOsm/kg (285-295)
== END 2023-04-29 23:59 | disposition home or self-care (01) ==
PROVIDERS: Internal Medicine Cardiovascular Disease; PCP Family Medicine; Visit Provider Internal Medicine Medical Oncology
DX: R06.02 Shortness of breath (principal)
CPT/HCPCS: 36415; 80048; 83880

== ENCOUNTER → 2023-04-18 14:03 | Outpatient (BNVA) | payer MEDICARE, SELFPAY | PROVIDERS: PCP Family Medicine; Visit Provider Nurse Practitioner Family | DX: L89.313 Pressure ulcer of right buttock, stage 3 (principal) | CPT/HCPCS: 11042; 97605; A6237; A6250 ==

== ENCOUNTER → 2023-04-22 13:57 | Outpatient (BNVA) | payer MEDICARE, SELFPAY | PROVIDERS: PCP Family Medicine; Visit Provider Thoracic Surgery (Cardiothoracic Vascular Surgery) | DX: I96 Gangrene, not elsewhere classified (principal); L89.323 Pressure ulcer of left buttock, stage 3 | CPT/HCPCS: 11042; 97605; A6237; A6250 ==

== ENCOUNTER 2023-04-24 22:01 | Emergency (ER) | payer MEDICARE, SELFPAY ==
--- NOTE | 2023-04-24 22:04 | ED_ITS ---
HPI - Abdominal Pain General: Chief Complaint: Abdominal Pain Stated Complaint: Abd pain Time Seen by Provider: 04/24/23 22:04 History of Present Illness: Mr. Voss is a 68-year-old gentleman with complex past medical history presenting to the emergency department for evaluation of abdominal pain. The reports onset of symptoms approximately 45 minutes prior to arrival at rest. No fernando right sided abdominal pain in the mid abdomen. Sharp and stabbing. Severe in intensity. He does have a ostomy however denies changes in output. Denies testicular or penile pain. Mildly improved by home medications though still persist. He did undergo ablation of a liver lesion yesterday. No other specific changes in health, exacerbating, or alleviating factors identified. Onset (ago): minute(s) Location: RUQ, RLQ and R flank Severity: severe Quality: sharp Exacerbating factors: movement Associated Symptoms: Reports no associated symptoms Review of Systems General: Reports: 10 or more systems reviewed and unremarkable except in HPI and below PFSH ED PFSH: Medical History Afib Allergies Asperger syndrome mild Asthma Cardiomegaly Chronic low back pain Chronic pain syndrome Chronic sinusitis of both maxillary sinuses Colon cancer COVID-19 (~08/2022) hospitalized in [place] Degenerative joint disease (DJD) of lumbar spine Dyslipidemia Erectile dysfunction Gout Hypertension 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 Obstructive sleep apnea Opioid contract exists previous Orthostatic hypotension Osteoarthritis Polycythemia Restrictive lung disease due to kyphoscoliosis Right renal stone Substernal goiter Suspected exposure to asbestos Testosterone deficiency On TRT for 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 Surgical History H/O ankle fusion H/O arthroscopic knee surgery H/O wrist surgery History of appendectomy History of back surgery History of colostomy (11/01/22) Colostomy revision for control of bleeding History of exploratory laparotomy (10/15/22) Exploratory laparotomy with partial colon resection and with end colostomy formation History of shoulder surgery S/P ureteral stent placement Status post left hemicolectomy (10/08/22) laparoscopic converted to open, with splenic flexure takedown and right colon mobilization, primary anastamosis Family History Grandfather CAD (coronary artery disease) Family/Other Cancer Grandmother Dementia Stroke Mother Lung disease Other Hypertension Denies family history of Rheumatoid arthritis Diabetes Lupus Clotting disorder Hyperlipidemia Chronic kidney disease (CKD) Suicide Anesthesia complication Bleeding disorder Social History Smoking and tobacco status: former smoker Quit status (tobacco): has quit using tobacco Year quit tobacco: 1975 [id number] Second hand smoke exposure: Yes Alcohol intake: never Substance/Drug Use: never Lives independently: Yes Current occupational status: retired Pets and animals: Yes Do you think of yourself as: Straight/Heterosexual Current gender identity: Male Physical Exam Const: COMMON NORMALS: alert GENERAL APPEARANCE: cooperative and well developed HENMT: COMMON NORMALS: normocephalic and atraumatic HEAD & SCALP: normocephalic and atraumatic Eye: COMMON NORMALS: conjunctivae normal CONJUNCTIVA: Yes conjunctivae normal SCLERA: sclerae normal Neck/C-Spine: COMMON NORMALS: supple GENERAL: Yes trachea midline Resp: COMMON NORMALS: normal respiratory effort EFFORT & INSPECTION: Yes able to speak in complete sentences Cardio: COMMON NORMALS: regular rate and regular rhythm RATE: regular rate RHYTHM: regular rhythm GI: COMMON NORMALS: Soft to palpation PALPATION: Yes Soft to palpation, Yes Tenderness to palpation present (GI) and No Rigid due to palpation Extremity: GENERAL: Yes normal exam except as noted and No edema Neuro: COMMON NORMALS: moves all extremities SENSORIUM/ORIENTATION: Yes alert and No Orientation impaired Psych: COMMON NORMALS: mental status grossly normal and Normal thought process present THOUGHT PROCESS: Normal thought process present Course Vital Signs: Vital signs: Vital Signs Temperature 99.1 F 04/24/23 22:07 Pulse Rate 97 04/25/23 01:48 Respiratory Rate 16 04/25/23 01:48 Blood Pressure 148/80 04/25/23 01:48 Pulse Oximetry 95 04/25/23 01:48 Oxygen Delivery Me thod Nasal Cannula 04/25/23 00:03 Oxygen Flow Rate 3 04/25/23 00:03 MDM - Abdominal Pain Medical Decision Making 68-year-old gentleman presenting with abdominal pain. Exam as above. Abdominal pain on palpation without acute surgical abdomen. Nontoxic. No leukocytosis, normal hemoglobin. Metabolic panel with mild transaminitis. No UTI. D-dimer elevated. CT demonstrates no PE. No acute pathology identified requiring intervention. Incidental findings discussed with patient. Patient proved with antiemetic, analgesia. Most likely pain related to prior ablation. The results of ED evaluation were discussed with the patient including prescriptions and/or symptomatic cares (if applicable) including appropriate and responsible use, followup plan, and return precautions. The patient verbalized understanding and felt safe for discharge. Medical Records I reviewed the patient's medical records. Lab Data I reviewed the patient's lab results. 04/24/23 22:17 04/24/23 22:48 Labs/Radiology: Radiology Impressions Chest/Abdomen/Pelvis CT 04/24/23 23:05 IMPRESSION: 1. Metallic artifact from spinal hardware somewhat limits assessment. 2. Dilated ascending aorta measuring 4.3 cm in diameter. No aortic dissection. 3. No evidence of pulmonary embolism. 4. Mild dependent atelectasis in the lower lungs. No consolidative pulmonary infiltrate noted. 5. Minimal bilateral pleural effusions are suspected. 6. Enlarged left lobe of the thyroid gland extending to the superior mediastinum, consistent with goiter. This is unchanged from CT chest of 11/01/2022. IMPRESSION: 1. 5.5 cm low-density lesion in the right lobe of the liver, likely treated metastatic disease. 2. Status post partial colectomy. Right mid abdominal colostomy. No acute abnormality related to the colostomy. 3. No acute abnormality demonstrated in the abdomen and pelvis. COMMENTS: Consistent with the [employer]'s Incidental Findings Committee white paper (J Am Dg Radiol 2018): Any incidental renal lesion less than 1 cm or classified as too small to characterize, or any incidental cystic renal lesion characterized as simple-appearing, is likely benign. No follow-up imaging is recommended for these lesions per consensus recommendations based on imaging criteria. Laboratory Results WBC 9.4 10^3/uL (4.0-10.0) 04/24/23 22:17 RBC 4.15 10^6/uL (4.1-5.3) 04/24/23 22:17 Hgb 12.7 g/dL (11.7-16.6) 04/24/23 22:17 Hct 39.6 % (42.0-52.0) L 04/24/23 22:17 MCV 95.4 fl (80-94) H 04/24/23 22:17 MCH 30.6 pg (28.0-34.0) 04/24/23 22:17 MCHC 32.1 g/dL (30.0-36.0) 04/24/23 22:17 RDW 15.9 % (12.1-15.1) H 04/24/23 22:17 Plt Count 208 10^3/cmm (130-400) 04/24/23 22:17 MPV 10.5 fL (7.4-10.4) H 04/24/23 22:17 Neut % (Auto) 74.2 % 04/24/23 22:17 Lymph % (Auto) 12.0 % 04/24/23 22:17 [place] % (Auto) 10.9 % 04/24/23 22:17 Eos % (Auto) 2.1 % 04/24/23 22:17 Baso % (Auto) 0.4 % 04/24/23 22:17 Neut # (Auto) 6.98 10^3/uL (1.8-7.7) 04/24/23 22:17 Lymph # (Auto) 1.1 10^3/uL (0.8-4.8) 04/24/23 22:17 [place] # (Auto) 1.0 10^3/uL (0.2-0.9) H 04/24/23 22:17 Eos # (Auto) 0.2 10^3/uL (0.0-0.8) 04/24/23 22:17 Baso # (Auto) 0.0 10^3/uL (0.0-0.1) 04/24/23 22:17 Nucleated RBC % (auto) 0 % 04/24/23 22:17 Nucleated RBCs # 0.0 /100WBC 04/24/23 22:17 D-Dimer 1.79 ug/mIFEU (0-0.59) H 04/24/23 22:17 Sodium 135 mmol/L (136-145) L 04/24/23 22:48 Potassium 4.4 mmol/L (3.5-5.1) 04/24/23 22:48 Chloride 103 mmol/L (98-107) 04/24/23 22:48 Carbon Dioxide 24 mmol/L (22-29) 04/24/23 22:48 Anion Gap 12.4 (5-19) 04/24/23 22:48 BUN 14 mg/dL (8-23) 04/24/23 22:48 Creatinine 1.0 mg/dL (0.7-1.2) 04/24/23 22:48 GFR Calculation 74.3 mL/min (90-130) L 04/24/23 22:48 Glucose 130 mg/dL (65-115) H 04/24/23 22:48 Calculated Osmolality 282 mOsm/kg (285-295) L 04/24/23 22:48 Lactic Acid 1.4 mmol/L (0.5-2.2) 04/24/23 22:17 Calcium 8.6 mg/dL (8.5-10.5) 04/24/23 22:48 Total Bilirubin 0.4 mg/dL (0.15-1.2) 04/24/23 22:48 AST 128 U/L (0-40) H 04/24/23 22:48 ALT 96 U/L (0-41) H 04/24/23 22:48 Alkaline Phosphatase 73 U/L (40-130) 04/24/23 22:48 Total Protein 6.4 g/dL (6.6-8.7) L 04/24/23 22:48 Albumin 3.3 g/dL (3.5-5.2) L 04/24/23 22:48 Globulin 3.1 g/dL (1.3-4.6) 04/24/23 22:48 Lipase 20 U/L (13-60) 04/24/23 22:48 Urine Color Yellow (Yellow) 04/24/23 23:25 Urine Appearance Clear (CLEAR) 04/24/23 23:25 Urine pH 5 (5-7) 04/24/23 23:25 Ur Specific [place] 1.010 (1.005-1.030) 04/24/23 23:25 Urine Protein Neg (Negative) 04/24/23 23:25 Urine Glucose (UA) Norm (Normal) 04/24/23 23:25 Urine Ketones Negative (Negative) 04/24/23 23:25 Urine Blood Neg (Negative) 04/24/23 23:25 Urine Nitrate Negative (Negative) 04/24/23 23:25 Urine Bilirubin Neg (Negative) 04/24/23 23:25 Urine Urobilinogen Neg mg/dL (Negative) 04/24/23 23:25 Ur Leukocyte Esterase Negative (Negative) 04/24/23 23:25 Discharge Plan Discharge Patient Disposition: Home Clinical Impression: Abdominal pain Condition: Stable Prescriptions: New oxycodone 5 mg tablet 5 mg PO Q4H PRN (Reason: pain) Qty: 10 0RF No Action allopurinol 300 mg tablet 300 mg PO DAILY folic acid 1 mg tablet 1 mg PO DAILY@2199 multivitamin Tablet 6 tab PO DAILY@2199 biotin 1 mg tablet 1 mg PO DAILY lycopene 10 mg capsule 10 mg PO DAILY Rx Instructions: administer after a meal resveratrol 250 mg capsule 250 mg PO QPM saw palmetto 500 mg capsule 500 mg PO DAILY Rx Instructions: give with food (meal/snack) lovastatin 40 mg tablet 20 mg PO BEDTIME testosterone cypionate 200 mg/mL oil 120 mg IM Q7D Qty: 10 5RF Rx Instructions: ON TUESDAYS clindamycin HCl 300 mg capsule 300 mg PO Q8H Qty: 21 0RF digoxin 125 mcg (0.125 mg) tablet 125 mcg PO DAILY Qty: 30 5RF Dakin's Solution 0.5 % solution 1 applic topical BID Qty: 473 0RF Rx Instructions: Apply to sacral wound twice daily. Symbicort 80-4.5 mcg/actuation HFA aerosol inhaler 2 puff INHALATION BID@10,22 Qty: 10.2 3RF potassium chloride 10 mEq tablet extended release 10 meq PO DAILY Qty: 90 2RF furosemide 20 mg tablet 20 mg PO DAILY Qty: 90 2RF vitamin E 1,000 unit Capsule 1,000 unit PO DAILY@2200 sennosides [senna] 8.6 mg Tablet 8.6 mg PO DAILY PRN (Reason: Constipation) ascorbic acid (vitamin C) [Vitamin C] 1,000 mg Tablet 1,000 mg PO DAILY@2200 loratadine [Claritin] 10 mg tablet 10 mg PO DAILY PRN (Reason: Allergy Symptoms) tadalafil [Cialis] 20 mg tablet 20 mg PO DAILY PRN (Reason: sexual activity) Rx Instructions: administer approximately 30min before sexual activity; NO NITROGLYCERIN! acetaminophen 500 mg Tablet 500 mg PO Q6H PRN (Reason: Pain) triamcinolone acetonide 0.1 % Cream 1 applic TOPICAL EVERY OTHER DAY trazodone 150 mg tablet 300 mg PO BEDTIME Vitamin D3 10 mcg (400 unit) Capsule 10 mcg PO DAILY melatonin 5 mg Tablet 5 mg PO BEDTIME ketoconazole 2 % shampoo 1 applic TOPICAL DAILY PRN (Reason: Rash) gabapentin 300 mg capsule 300 mg PO TID Discharge Orders: Discharge ED (Routine); Ordered 04/25/23 Ordered By: Donnie Ye Referrals: Al Álvarez MD [Primary Care Provider] - Discharge Diet: Advance as tolerated and Clear Liquid Discharge Activity: Increase activity as tolerated Patient Instructions: Abdominal Pain (ED), Opioid Safety Activity Restrictions/Additional Instructions: Thank you for visiting the emergency department. You were seen in department for abdominal pain. The exact cause of your symptoms is unclear that may be related to recent procedure. I recommend follow-up with your primary care provider. Follow all discharge instructions previously given. I will prescribe oxycodone, do not use this at the same time as your previously prescribed opioid pain medication. Return to the emergency department for uncontrolled symptoms or anything else that you are concerned about and feel needs emergency department evaluation. Coding Level of Care Code ED Is Manager for Scar[facility]
[2023-04-24 22:07] VITALS: BP 126/72; PULSE 108; RESP 24; TEMP 37.3; O2SAT 93; BMI 34.0
[2023-04-24 22:12] VITALS: O2SAT 92
[2023-04-24 22:13] VITALS: BP 126/72; PULSE 103; O2SAT 92
[2023-04-24 22:32] LABS: Basophils % 0.4 %; Eosinophils # 0.2 10^3/uL (0.0-0.8); Eosinophils % 2.1 %; Hematocrit 39.6 % (42.0-52.0); Hemoglobin 12.7 g/dL (11.7-16.6); Lymphocytes # 1.1 10^3/uL (0.8-4.8); Mean Corpuscular HGB Conc 32.1 g/dL (30.0-36.0); Mean Corpuscular Hemoglobin 30.6 pg (28.0-34.0); Mean Corpuscular Volume 95.4 fl (80-94); Mean Platelet Volume 10.5 fL (7.4-10.4); Monocytes % 10.9 %; Neutrophils # 6.98 10^3/uL (1.8-7.7); Neutrophils % 74.2 %; Nucleated Red Blood Cells % 0 %; Platelet Count 208 10^3/cmm (130-400); Red Blood Count 4.15 10^6/uL (4.1-5.3); Red Cell Distribution Width 15.9 % (12.1-15.1); White Blood Count 9.4 10^3/uL (4.0-10.0)
[2023-04-24] MEDS: ondansetron 2 mg/ML SDV 2 mL 4 MG IVP (22:35)
[2023-04-24 22:37] VITALS: RESP 18; O2SAT 92
[2023-04-24] MEDS: fentaNYL 50 mcg/mL INJ 2mL 75 MCG IVP ×2 (22:37→23:50)
[2023-04-24 22:41] VITALS: BP 141/75; PULSE 93; RESP 18; O2SAT 91
[2023-04-24 22:43] LABS: Lactic Sepsis W/Reflex 1.4 mmol/L (0.5-2.2)
[2023-04-24 23:02] LABS: D Dimer 1.79 ug/mIFEU (0-0.59)
--- NOTE | 2023-04-24 23:05 | CTR_ITS ---
PROCEDURE INFORMATION: Exam: CTA Chest With Contrast Exam date and time: 04/24/2023 11:22 PM Age: 68 years old Clinical indication: Abdominal pain; Flank; Right; Chest pressure; Prior surgery; Surgery date: Post-operative (0-2 days); Surgery type: Liver ablation for tumor yesterday. 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 ; Additional info: R abd/flank pain, HX recent liver ablasion/cancer TECHNIQUE: Imaging protocol: Computed tomographic angiography of the chest with contrast. Exam focused on the arteries. 3D rendering (Not supervised by radiologist): MIP and/or 3D reconstructed images were created by the technologist. Radiation optimization: All CT scans at this facility use at least one of these dose optimization techniques: automated exposure control; mA and/or kV adjustment per patient size (includes targeted exams where dose is matched to clinical indication); or iterative reconstruction. Contrast material: OMNI 350; Contrast volume: 100 ml; Contrast route: INTRAVENOUS (IV); REPORTING DATA: Count of CT and Cardiac NM exams in prior 12 months: This patient has received 10 known CTs and 0 known cardiac nuclear medicine studies in the 12 months prior to the current study. COMPARISON: CT angio chest w abd pel w con 11/01/2022 1:55 PM RADIATION DOSE METRICS: Total DLP (mGy-cm): 1924.58 FINDINGS: Limitations: Metallic artifact from spinal hardware somewhat limits assessment. Pulmonary arteries: Pulmonary arteries are normal in size. No filling defects are demonstrated. No evidence of pulmonary embolism. Aorta: Ascending aorta is dilated, measuring 4.3 cm in transverse diameter. Atherosclerotic calcifications are noted. No aortic dissection. Impression Thyroid: Enlarged left lobe of the thyroid gland extending to the superior mediastinum, consistent with goiter. Lungs: Mild dependent atelectasis in the lower lungs. No consolidative pulmonary infiltrate noted. Pleural spaces: Minimal bilateral pleural effusions are suspected. No pneumothorax. Heart: No cardiomegaly. No pericardial effusion. Coronary arteries: The coronary arteries demonstrate atherosclerotic calcifications. Lymph nodes: Partially calcified mediastinal and hilar lymph nodes consistent with old granulomatous disease. Bones/joints: Postop changes of the thoracic spine noted. Soft tissues: Unremarkable. PROCEDURE INFORMATION: Exam: CT Abdomen And Pelvis With Contrast Exam date and time: 04/24/2023 11:22 PM Age: 68 years old Clinical indication: Abdominal pain; Flank; Right; Chest pressure; Prior surgery; Surgery date: Post-operative (0-2 days); Surgery type: Liver ablation for tumor yesterday. 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 ; Additional info: R abd/flank pain, HX recent liver ablasion/cancer TECHNIQUE: Imaging protocol: Computed tomography of the abdomen and pelvis with contrast. Radiation optimization: All CT scans at this facility use at least one of these dose optimization techniques: automated exposure control; mA and/or kV adjustment per patient size (includes targeted exams where dose is matched to clinical indication); or iterative reconstruction. Contrast material: OMNI 350; Contrast volume: 100 ml; Contrast route: INTRAVENOUS (IV); REPORTING DATA: Count of CT and Cardiac NM exams in prior 12 months: This patient has received 10 known CTs and 0 known cardiac nuclear medicine studies in the 12 months prior to the current study. COMPARISON: MR pelvis wo con* [id number] 02/20/2023 12:36 PM RADIATION DOSE METRICS: Total DLP (mGy-cm): 1924.58 FINDINGS: Liver: 5.5 cm low-density lesion in the right lobe of the liver, likely treated metastatic disease. Gallbladder and bile ducts: No calcified stones. No ductal dilation. Pancreas: The pancreas is normal in appearance. No pancreatic duct dilatation. Spleen: No focal splenic lesion. No splenomegaly. Adrenal glands: Unremarkable. No mass. Kidneys and ureters: Simple appearing left renal cysts measuring up to 3.3 cm. No solid mass. No hydronephrosis on either side. Stomach and bowel: Status post partial colectomy. Right mid abdominal colostomy. No acute abnormality related to the colostomy. No acute small bowel abnormality noted. Appendix: No evidence of appendicitis. Intraperitoneal space: No free air. No significant fluid collection. Vasculature: Abdominal aorta is atherosclerotic. No aneurysm noted. Lymph nodes: No pathologically enlarged lymph nodes. Urinary bladder: The urinary bladder is unremarkable in appearance. Reproductive: Mild enlargement of the prostate gland. Bones/joints: Postop changes of the lumbar spine. The hardware is unremarkable. No acute osseous abnormality noted. Soft tissues: Small left inguinal hernia noted, containing only fat. CT/CT angio chest w abd pel w con IMPRESSION: 1. Metallic artifact from spinal hardware somewhat limits assessment. 2. Dilated ascending aorta measuring 4.3 cm in diameter. No aortic dissection. 3. No evidence of pulmonary embolism. 4. Mild dependent atelectasis in the lower lungs. No consolidative pulmonary infiltrate noted. 5. Minimal bilateral pleural effusions are suspected. 6. Enlarged left lobe of the thyroid gland extending to the superior mediastinum, consistent with goiter. This is unchanged from CT chest of 11/01/2022. IMPRESSION: 1. 5.5 cm low-density lesion in the right lobe of the liver, likely treated metastatic disease. 2. Status post partial colectomy. Right mid abdominal colostomy. No acute abnormality related to the colostomy. 3. No acute abnormality demonstrated in the abdomen and pelvis. COMMENTS: Consistent with the [employer]'s Incidental Findings Committee white paper (J Am Dg Radiol 2018): Any incidental renal lesion less than 1 cm or classified as too small to characterize, or any incidental cystic renal lesion characterized as simple-appearing, is likely benign. No follow-up imaging is recommended for these lesions per consensus recommendations based on imaging criteria.
[2023-04-24 23:22] LABS: Alanine Aminotransferase 96 U/L (0-41); Albumin Level 3.3 g/dL (3.5-5.2); Alkaline Phosphatase 73 U/L (40-130); Aspartate Amino Transferase 128 U/L (0-40); Blood Urea Nitrogen 14 mg/dL (8-23); Calcium 8.6 mg/dL (8.5-10.5); Carbon Dioxide 24 mmol/L (22-29); Chloride 103 mmol/L (98-107); Globulin 3.1 g/dL (1.3-4.6); Glomerular Filtration Rate 74.3 mL/min (90-130); Glucose 130 mg/dL (65-115); Lipase 20 U/L (13-60); Osmolality Calculated 282 mOsm/kg (285-295); Sodium 135 mmol/L (136-145); Total Bilirubin 0.4 mg/dL (0.15-1.2); Total Protein 6.4 g/dL (6.6-8.7)
[2023-04-24] MEDS: iohexol 350 mg/mL 500 mL Btl (per mL) IV (23:23)
[2023-04-24 23:28] LABS: Anion Gap 12.4 (5-19); Potassium 4.4 mmol/L (3.5-5.1)
[2023-04-24 23:35] LABS: Add Urine Microscopic? NO; Charge for UA Resulting for Rev
[2023-04-24 23:50] VITALS: RESP 20; O2SAT 98
[2023-04-24 23:51] LABS: Protein Urine Neg (Negative); Urine Appearance Clear (CLEAR); Urine Color Yellow (Yellow); pH Urine 5 (5-7)
[2023-04-24 23:52] LABS: Bilirubin Urine Neg (Negative); Blood Urine Neg (Negative); Glucose Urine UA Norm (Normal); Ketones Urine Negative (Negative); Leukocyte Esterase Urine Negative (Negative); Nitrate Urine Negative (Negative); Urobilinogen Urine Neg (Negative)
[2023-04-25 00:03] VITALS: BP 147/83; PULSE 100; O2SAT 96
[2023-04-25 00:46] VITALS: RESP 16; O2SAT 94
[2023-04-25] MEDS: fentaNYL 50 mcg/mL INJ 2mL 75 MCG IVP (00:46)
[2023-04-25] MEDS: acetaminophen 325 mg Tablet 650 MG PO (01:32)
[2023-04-25] MEDS: ketorolac 30 mg/mL INJ 15 MG IVP (01:33)
[2023-04-25 01:48] VITALS: BP 148/80; PULSE 97; RESP 16; O2SAT 95
== END 2023-04-25 01:49 | disposition home or self-care (01) ==
PROVIDERS: Emergency Provider Emergency Medicine; PCP Family Medicine
DX: R10.9 Unspecified abdominal pain (principal)
CPT/HCPCS: 36415; 71275; 74177; 80053; 81003; 83605; 83690; 85025; 85378; 96374; 96375; 96376; 99285; J1885; J2405; J3010; Q9967

== ENCOUNTER → 2023-04-25 14:35 | Outpatient (BNVA) | payer MEDICARE, SELFPAY | PROVIDERS: PCP Family Medicine; Visit Provider Nurse Practitioner Family | DX: L89.313 Pressure ulcer of right buttock, stage 3 (principal) | CPT/HCPCS: 97605; A6237; A6250 ==

== ENCOUNTER → 2023-04-29 13:06 | Outpatient (BNVA) | payer MEDICARE, SELFPAY | PROVIDERS: PCP Family Medicine; Visit Provider Thoracic Surgery (Cardiothoracic Vascular Surgery) | DX: I96 Gangrene, not elsewhere classified (principal); L89.323 Pressure ulcer of left buttock, stage 3 | CPT/HCPCS: 11042; 97605; A6237; A6250 ==

== ENCOUNTER → 2023-05-02 15:00 | Outpatient (BNVA) | payer MEDICARE, SELFPAY | PROVIDERS: PCP Family Medicine; Visit Provider Nurse Practitioner Family | DX: L89.313 Pressure ulcer of right buttock, stage 3 (principal) | CPT/HCPCS: 97605; A6237; A6250 ==

== ENCOUNTER → 2023-05-06 12:55 | Outpatient (BNVA) | payer MEDICARE, SELFPAY | PROVIDERS: PCP Family Medicine; Visit Provider Thoracic Surgery (Cardiothoracic Vascular Surgery) | DX: I96 Gangrene, not elsewhere classified (principal); L89.323 Pressure ulcer of left buttock, stage 3 | CPT/HCPCS: 11042; 97605; A6237; A6250 ==

== ENCOUNTER → 2023-05-09 15:05 | Outpatient (BNVA) | payer MEDICARE, SELFPAY | PROVIDERS: PCP Family Medicine; Visit Provider Thoracic Surgery (Cardiothoracic Vascular Surgery) | DX: L89.313 Pressure ulcer of right buttock, stage 3 (principal) | CPT/HCPCS: 97605; A6237; A6250 ==

== ENCOUNTER → 2023-05-13 13:02 | Outpatient (BNVA) | payer MEDICARE, SELFPAY | PROVIDERS: PCP Family Medicine; Visit Provider Thoracic Surgery (Cardiothoracic Vascular Surgery) | DX: I96 Gangrene, not elsewhere classified (principal); L89.323 Pressure ulcer of left buttock, stage 3 | CPT/HCPCS: 11042; 97605; A6237; A6250 ==

== ENCOUNTER 2023-05-16 13:51 | Oncology outpatient (recurring) (ONCR) | payer MEDICARE, SELFPAY ==
[2023-05-16 14:20] VITALS: BP 106/67; PULSE 103; RESP 18; TEMP 36.6; O2SAT 97
[2023-05-16 14:53] LABS: Basophils # 0.1 10^3/uL (0.0-0.1); Eosinophils # 0.3 10^3/uL (0.0-0.8); Eosinophils % 3.8 %; Hematocrit 44.6 % (42.0-52.0); Hemoglobin 14.2 g/dL (11.7-16.6); Lymphocytes # 1.7 10^3/uL (0.8-4.8); Lymphocytes % 23.5 %; Mean Corpuscular HGB Conc 31.8 g/dL (30.0-36.0); Mean Corpuscular Hemoglobin 30.3 pg (28.0-34.0); Mean Corpuscular Volume 95.1 fl (80-94); Mean Platelet Volume 9.8 fL (7.4-10.4); Monocytes # 0.5 10^3/uL (0.2-0.9); Neutrophils # 4.48 10^3/uL (1.8-7.7); Neutrophils % 63.8 %; Nucleated Red Blood Cells % 0 %; Platelet Count 218 10^3/cmm (130-400); Red Blood Count 4.69 10^6/uL (4.1-5.3); Red Cell Distribution Width 14.9 % (12.1-15.1)
[2023-05-16 15:25] LABS: Carcinoembryonic Antigen 56.1 ng/mL (0.0-4.7)
[2023-05-16 15:37] LABS: Alanine Aminotransferase 15 U/L (0-41); Albumin Level 3.9 g/dL (3.5-5.2); Alkaline Phosphatase 79 U/L (40-130); Anion Gap 15.2 (5-19); Aspartate Amino Transferase 18 U/L (0-40); Blood Urea Nitrogen 12 mg/dL (8-23); Calcium 8.8 mg/dL (8.5-10.5); Carbon Dioxide 23 mmol/L (22-29); Chloride 106 mmol/L (98-107); Globulin 3.3 g/dL (1.3-4.6); Glomerular Filtration Rate 74.3 mL/min (90-130); Glucose 148 mg/dL (65-115); Osmolality Calculated 293 mOsm/kg (285-295); Potassium 4.2 mmol/L (3.5-5.1); Sodium 140 mmol/L (136-145); Total Bilirubin 0.2 mg/dL (0.15-1.2); Total Protein 7.2 g/dL (6.6-8.7)
== END 2023-05-30 23:59 | disposition home or self-care (01) ==
PROVIDERS: PCP Family Medicine; Visit Provider Internal Medicine Medical Oncology
DX: C18.5 Malignant neoplasm of splenic flexure (principal); Z90.49 Acquired absence of other specified parts of digestive tract; Z93.3 Colostomy status; L89.90 Pressure ulcer of unspecified site, unspecified stage; Z87.891 Personal history of nicotine dependence; C77.9 Secondary and unspecified malignant neoplasm of lymph node, unspecified; L89.313 Pressure ulcer of right buttock, stage 3
CPT/HCPCS: 36415; 80053; 82378; 85025; 97605; 99214; A6237; A6250

== ENCOUNTER → 2023-05-20 14:29 | Outpatient (BNVA) | payer MEDICARE, SELFPAY | PROVIDERS: PCP Family Medicine; Visit Provider Thoracic Surgery (Cardiothoracic Vascular Surgery) | DX: I96 Gangrene, not elsewhere classified (principal); L89.323 Pressure ulcer of left buttock, stage 3 | CPT/HCPCS: 11042; 97605; A6237; A6250 ==

== ENCOUNTER → 2023-05-23 14:40 | Outpatient (BNVA) | payer MEDICARE, SELFPAY | PROVIDERS: PCP Family Medicine; Visit Provider Nurse Practitioner Family | DX: L89.313 Pressure ulcer of right buttock, stage 3 (principal) | CPT/HCPCS: 97605; A6237; A6250 ==

== ENCOUNTER → 2023-05-27 14:28 | Outpatient (BNVA) | payer MEDICARE, SELFPAY | PROVIDERS: PCP Family Medicine; Visit Provider Thoracic Surgery (Cardiothoracic Vascular Surgery) | DX: I96 Gangrene, not elsewhere classified (principal); L89.323 Pressure ulcer of left buttock, stage 3 | CPT/HCPCS: 11042; A6446 ==

== ENCOUNTER → 2023-06-04 12:58 | Outpatient (BNVA) | payer MEDICARE, SELFPAY | PROVIDERS: PCP Family Medicine; Visit Provider Nurse Practitioner Family | DX: I96 Gangrene, not elsewhere classified (principal); L89.323 Pressure ulcer of left buttock, stage 3 | CPT/HCPCS: 11042; 97605; A6237; A6250 ==

== ENCOUNTER → 2023-06-07 15:48 | Outpatient (BNVA) | payer MEDICARE, SELFPAY | PROVIDERS: PCP Family Medicine; Visit Provider Thoracic Surgery (Cardiothoracic Vascular Surgery) | DX: I96 Gangrene, not elsewhere classified (principal); L89.323 Pressure ulcer of left buttock, stage 3 | CPT/HCPCS: 97605; A6237; A6250 ==

== ENCOUNTER → 2023-06-10 11:16 | Outpatient (BNVA) | payer MEDICARE, SELFPAY | PROVIDERS: PCP Family Medicine; Visit Provider Thoracic Surgery (Cardiothoracic Vascular Surgery) | DX: I96 Gangrene, not elsewhere classified (principal); L89.323 Pressure ulcer of left buttock, stage 3 | CPT/HCPCS: 11042; 97605; A6237; A6250 ==

== ENCOUNTER 2023-06-12 14:35 | Oncology outpatient (recurring) (ONCR) | payer MEDICARE, SELFPAY ==
[2023-06-12 14:46] VITALS: BP 111/66; PULSE 96; RESP 16; TEMP 36.5; O2SAT 94
[2023-06-12 15:43] LABS: Carcinoembryonic Antigen 30.1 ng/mL (0.0-4.7)
== END 2023-06-29 23:59 | disposition home or self-care (01) ==
PROVIDERS: PCP Family Medicine; Visit Provider Internal Medicine Medical Oncology
DX: C18.5 Malignant neoplasm of splenic flexure (principal)
CPT/HCPCS: 36415; 82378

== ENCOUNTER → 2023-06-13 11:08 | Outpatient (BNVA) | payer MEDICARE, SELFPAY | PROVIDERS: PCP Family Medicine; Visit Provider Nurse Practitioner Family | DX: L89.313 Pressure ulcer of right buttock, stage 3 (principal) | CPT/HCPCS: 97605; A6237; A6250 ==

== ENCOUNTER → 2023-06-17 11:02 | Outpatient (BNVA) | payer MEDICARE, SELFPAY | PROVIDERS: PCP Family Medicine; Visit Provider Nurse Practitioner Family | DX: I96 Gangrene, not elsewhere classified (principal); L89.323 Pressure ulcer of left buttock, stage 3 | CPT/HCPCS: 11042; 97605; A6210; A6237; A6250 ==

== ENCOUNTER → 2023-06-20 13:22 | Outpatient (BNVA) | payer MEDICARE, SELFPAY | PROVIDERS: PCP Family Medicine; Visit Provider Nurse Practitioner Family | DX: I96 Gangrene, not elsewhere classified (principal); L89.323 Pressure ulcer of left buttock, stage 3 | CPT/HCPCS: 97605; A6237; A6250 ==

== ENCOUNTER → 2023-06-24 13:04 | Outpatient (BNVA) | payer MEDICARE, SELFPAY | PROVIDERS: PCP Family Medicine; Visit Provider Thoracic Surgery (Cardiothoracic Vascular Surgery) | DX: I96 Gangrene, not elsewhere classified (principal); L89.323 Pressure ulcer of left buttock, stage 3 | CPT/HCPCS: 11042; 97606; A6210; A6212; A6237; A6250 ==

== ENCOUNTER → 2023-06-27 11:19 | Outpatient (BNVA) | payer MEDICARE, SELFPAY | PROVIDERS: PCP Family Medicine; Visit Provider Nurse Practitioner Family | DX: L89.313 Pressure ulcer of right buttock, stage 3 (principal) | CPT/HCPCS: 97605; A6237; A6250 ==

== ENCOUNTER → 2023-07-01 14:35 | Outpatient (BNVA) | payer MEDICARE, SELFPAY | PROVIDERS: PCP Family Medicine; Visit Provider Thoracic Surgery (Cardiothoracic Vascular Surgery) | DX: L89.313 Pressure ulcer of right buttock, stage 3 (principal) | CPT/HCPCS: 97605; A6237; A6250 ==

== ENCOUNTER → 2023-07-04 12:56 | Outpatient (BNVA) | payer MEDICARE, SELFPAY | PROVIDERS: PCP Family Medicine; Visit Provider Nurse Practitioner Family | DX: L89.313 Pressure ulcer of right buttock, stage 3 (principal) | CPT/HCPCS: 11042; 97605; A6237; A6250 ==

== ENCOUNTER → 2023-07-08 14:31 | Outpatient (BNVA) | payer MEDICARE, SELFPAY | PROVIDERS: PCP Family Medicine; Visit Provider Thoracic Surgery (Cardiothoracic Vascular Surgery) | DX: L89.323 Pressure ulcer of left buttock, stage 3 (principal) | CPT/HCPCS: 11042; 97605; A6212; A6237; A6250 ==

== ENCOUNTER 2023-07-11 11:45 | Oncology outpatient (recurring) (ONCR) | payer MEDICARE, SELFPAY ==
[2023-07-11 13:15] LABS: Basophils # 0.1 10^3/uL (0.0-0.1); Basophils % 0.8 %; Eosinophils # 0.5 10^3/uL (0.0-0.8); Eosinophils % 6.2 %; Hematocrit 48.3 % (37-53); Lymphocytes # 1.7 10^3/uL (0.8-4.8); Lymphocytes % 22.6 %; Mean Corpuscular HGB Conc 32.5 g/dL (30-55); Mean Corpuscular Hemoglobin 30.2 pg (27-33); Mean Corpuscular Volume 92.9 fl (82-101); Mean Platelet Volume 9.5 fL (7.4-10.4); Monocytes # 0.7 10^3/uL (0.2-0.9); Monocytes % 9.3 %; Neutrophils # 4.61 10^3/uL (1.8-7.7); Neutrophils % 60.7 %; Nucleated Red Blood Cells % 0 %; Platelet Count 202 10^3/cmm (157-399); Red Cell Distribution Width 15.5 % (12.1-15.1)
[2023-07-11 13:54] LABS: Alanine Aminotransferase 20 U/L (0-41); Albumin Level 4.3 g/dL (3.5-5.2); Alkaline Phosphatase 76 U/L (40-130); Anion Gap 15.3 (5-19); Aspartate Amino Transferase 21 U/L (0-40); Blood Urea Nitrogen 16 mg/dL (8-23); Calcium 9.2 mg/dL (8.5-10.5); Carbon Dioxide 25 mmol/L (22-29); Chloride 101 mmol/L (98-107); Globulin 3.2 g/dL (1.3-4.6); Glomerular Filtration Rate 74.3 mL/min (90-130); Glucose 120 mg/dL (65-115); Osmolality Calculated 286 mOsm/kg (285-295); Potassium 4.3 mmol/L (3.5-5.1); Sodium 137 mmol/L (136-145); Total Bilirubin 0.3 mg/dL (0.15-1.2); Total Protein 7.5 g/dL (6.6-8.7)
== END 2023-07-30 23:59 | disposition home or self-care (01) ==
PROVIDERS: PCP Family Medicine; Visit Provider Internal Medicine Medical Oncology
DX: C18.5 Malignant neoplasm of splenic flexure (principal); L89.313 Pressure ulcer of right buttock, stage 3
CPT/HCPCS: 36415; 80053; 82378; 85025; 97605; A6237; A6250

== ENCOUNTER → 2023-07-15 13:00 | Outpatient (BNVA) | payer MEDICARE, SELFPAY | PROVIDERS: PCP Family Medicine; Visit Provider Thoracic Surgery (Cardiothoracic Vascular Surgery) | DX: L89.323 Pressure ulcer of left buttock, stage 3 (principal) | CPT/HCPCS: 11042; A6212; A6237; A6250 ==

== ENCOUNTER → 2023-07-18 15:01 | Outpatient (BNVA) | payer MEDICARE, SELFPAY | PROVIDERS: PCP Family Medicine; Visit Provider Nurse Practitioner Family | DX: L89.323 Pressure ulcer of left buttock, stage 3 (principal) | CPT/HCPCS: 97605; A6237; A6250 ==

== ENCOUNTER → 2023-07-22 15:15 | Outpatient (BNVA) | payer MEDICARE, SELFPAY | PROVIDERS: PCP Family Medicine; Visit Provider Nurse Practitioner Family | DX: L89.323 Pressure ulcer of left buttock, stage 3 (principal) | CPT/HCPCS: 11042; 97605; A6237; A6250 ==

== ENCOUNTER → 2023-07-25 14:21 | Outpatient (BNVA) | payer MEDICARE, SELFPAY | PROVIDERS: PCP Family Medicine; Visit Provider Nurse Practitioner Family | DX: L89.313 Pressure ulcer of right buttock, stage 3 (principal) | CPT/HCPCS: 97605; A6237; A6250 ==

== ENCOUNTER → 2023-07-29 14:21 | Outpatient (BNVA) | payer MEDICARE, SELFPAY | PROVIDERS: PCP Family Medicine; Visit Provider Thoracic Surgery (Cardiothoracic Vascular Surgery) | DX: L89.313 Pressure ulcer of right buttock, stage 3 (principal) | CPT/HCPCS: 11042; 97605; A6237; A6250 ==

== ENCOUNTER → 2023-08-01 14:22 | Outpatient (BNVA) | payer MEDICARE, SELFPAY | PROVIDERS: PCP Family Medicine; Visit Provider Nurse Practitioner Family | DX: L89.313 Pressure ulcer of right buttock, stage 3 (principal) | CPT/HCPCS: 97605; A6237; A6250 ==

== ENCOUNTER → 2023-08-05 14:20 | Outpatient (BNVA) | payer MEDICARE, SELFPAY | PROVIDERS: PCP Family Medicine; Visit Provider Thoracic Surgery (Cardiothoracic Vascular Surgery) | DX: I96 Gangrene, not elsewhere classified (principal); L89.322 Pressure ulcer of left buttock, stage 2 | CPT/HCPCS: 11042; 97605; A6237; A6250 ==

== ENCOUNTER → 2023-08-08 14:32 | Outpatient (BNVA) | payer MEDICARE, SELFPAY | PROVIDERS: PCP Family Medicine; Visit Provider Nurse Practitioner Family | DX: L89.323 Pressure ulcer of left buttock, stage 3 (principal) | CPT/HCPCS: 11042; A6237; A6250 ==

== ENCOUNTER → 2023-08-12 15:45 | Outpatient (BNVA) | payer MEDICARE, SELFPAY | PROVIDERS: PCP Family Medicine; Visit Provider Thoracic Surgery (Cardiothoracic Vascular Surgery) | DX: I96 Gangrene, not elsewhere classified (principal); L89.323 Pressure ulcer of left buttock, stage 3 | CPT/HCPCS: 11042; A6220 ==

== ENCOUNTER → 2023-08-19 10:33 | Outpatient (BNVA) | payer MEDICARE, SELFPAY | PROVIDERS: PCP Family Medicine; Visit Provider Thoracic Surgery (Cardiothoracic Vascular Surgery) | DX: I96 Gangrene, not elsewhere classified (principal); L89.323 Pressure ulcer of left buttock, stage 3 | CPT/HCPCS: 11042 ==

== ENCOUNTER → 2023-08-26 14:57 | Outpatient (BNVA) | payer MEDICARE, SELFPAY | PROVIDERS: PCP Family Medicine; Visit Provider Nurse Practitioner Family | DX: I96 Gangrene, not elsewhere classified (principal); L89.323 Pressure ulcer of left buttock, stage 3 | CPT/HCPCS: 11042; A6219 ==

== ENCOUNTER 2023-08-29 12:59 | Oncology outpatient (recurring) (ONCR) | payer MEDICARE, SELFPAY ==
[2023-08-28 10:47] VITALS: BP 127/78; PULSE 93; RESP 16; TEMP 36.9; O2SAT 97
[2023-08-28 11:38] LABS: Basophils # 0.1 10^3/uL (0.0-0.1); Basophils % 0.8 %; Eosinophils # 0.4 10^3/uL (0.0-0.8); Eosinophils % 4.5 %; Lymphocytes # 1.4 10^3/uL (0.8-4.8); Lymphocytes % 18.1 %; Mean Corpuscular HGB Conc 31.8 g/dL (30-55); Mean Corpuscular Hemoglobin 30.2 pg (27-33); Mean Corpuscular Volume 94.9 fl (82-101); Mean Platelet Volume 9.7 fL (7.4-10.4); Monocytes # 0.6 10^3/uL (0.2-0.9); Monocytes % 7.4 %; Neutrophils # 5.27 10^3/uL (1.8-7.7); Neutrophils % 68.3 %; Nucleated Red Blood Cells % 0 %; Platelet Count 199 10^3/cmm (157-399); Red Blood Count 5.27 10^6/uL (3.85-5.65); Red Cell Distribution Width 14.7 % (12.1-15.1); White Blood Count 7.72 10^3/uL (3.29-11.43)
[2023-08-28 12:07] LABS: Carcinoembryonic Antigen 29.3 ng/mL (0.0-4.7)
[2023-08-28 12:18] LABS: Alanine Aminotransferase 19 U/L (0-41); Alkaline Phosphatase 78 U/L (40-130); Anion Gap 14.3 (5-19); Aspartate Amino Transferase 19 U/L (0-40); Blood Urea Nitrogen 14 mg/dL (8-23); Calcium 9.2 mg/dL (8.5-10.5); Carbon Dioxide 26 mmol/L (22-29); Chloride 101 mmol/L (98-107); Globulin 2.8 g/dL (1.3-4.6); Glomerular Filtration Rate 74.3 mL/min (90-130); Glucose 177 mg/dL (65-115); Osmolality Calculated 289 mOsm/kg (285-295); Potassium 4.3 mmol/L (3.5-5.1); Sodium 137 mmol/L (136-145); Total Bilirubin 0.3 mg/dL (0.15-1.2); Total Protein 6.8 g/dL (6.6-8.7)
== END 2023-08-29 23:59 | disposition home or self-care (01) ==
PROVIDERS: PCP Family Medicine; Visit Provider Internal Medicine Medical Oncology
DX: C18.5 Malignant neoplasm of splenic flexure (principal); Z79.899 Other long term (current) drug therapy; R97.0 Elevated carcinoembryonic antigen [CEA]
CPT/HCPCS: 36415; 80053; 82378; 85025; 99214

== ENCOUNTER → 2023-09-02 16:01 | Outpatient (BNVA) | payer MEDICARE, SELFPAY | PROVIDERS: PCP Family Medicine; Visit Provider Thoracic Surgery (Cardiothoracic Vascular Surgery) | DX: L89.323 Pressure ulcer of left buttock, stage 3 (principal) | CPT/HCPCS: 11042 ==

== ENCOUNTER → 2023-09-09 16:04 | Outpatient (BNVA) | payer MEDICARE, SELFPAY | PROVIDERS: PCP Family Medicine; Visit Provider Thoracic Surgery (Cardiothoracic Vascular Surgery) | DX: L89.323 Pressure ulcer of left buttock, stage 3 (principal) | CPT/HCPCS: 11042; A6219 ==

== ENCOUNTER → 2023-09-16 13:17 | Outpatient (BNVA) | payer MEDICARE, SELFPAY | PROVIDERS: PCP Family Medicine; Visit Provider Thoracic Surgery (Cardiothoracic Vascular Surgery) | DX: I96 Gangrene, not elsewhere classified (principal); L89.323 Pressure ulcer of left buttock, stage 3 | CPT/HCPCS: 11042 ==

== ENCOUNTER 2023-09-26 13:24 | Oncology outpatient (recurring) (ONCR) | payer MEDICARE, SELFPAY ==
[2023-09-26 13:30] VITALS: BP 138/80; PULSE 83; RESP 16; TEMP 36.4; O2SAT 97
[2023-09-26 14:06] LABS: Carcinoembryonic Antigen 31.1 ng/mL (0.0-4.7)
== END 2023-09-29 23:59 | disposition home or self-care (01) ==
LOC: ONCMED 13:24
PROVIDERS: PCP Family Medicine; Visit Provider Internal Medicine Medical Oncology
DX: Z85.038 Personal history of other malignant neoplasm of large intestine (principal)
CPT/HCPCS: 36415; 82378

== ENCOUNTER → 2023-10-02 13:03 | Outpatient (BNVA) | payer MEDICARE, SELFPAY | PROVIDERS: PCP Family Medicine; Visit Provider Thoracic Surgery (Cardiothoracic Vascular Surgery) | DX: L89.323 Pressure ulcer of left buttock, stage 3 (principal) | CPT/HCPCS: 97597; 99212; A6219 ==

== ENCOUNTER 2023-10-08 20:07 | Inpatient (IN) | payer MEDICARE, SELFPAY ==
[2023-10-08 20:09] VITALS: BP 107/53; PULSE 115; RESP 20; TEMP 37.3; O2SAT 93; BMI 38.9
--- NOTE | 2023-10-08 20:09 | W.ED.ABDPA2 ---
HPI - Abdominal Pain General: Chief Complaint: Abdominal Pain Stated Complaint: ABD PAIN Time Seen by Provider: 10/08/23 20:09 History of Present Illness: 68-year-old male presents to the emergency department with complaints of abdominal pain that began approximate 2 days ago. He states that he does have a colostomy secondary to colon cancer and resection exactly 1 year ago. He states it was done here at this facility. He states that he did notice a significant change in the output of his colostomy and became concerned as he is now having episodes of nausea and vomiting approximately 4 throughout the day today. He states he also has fatigue and malaise and has had an elevated temperature of 100.4 ?F. He states he also feels like he is having chills. Associated Symptoms: Reports nausea and vomiting Review of Systems General: Reports: 10 or more systems reviewed and unremarkable except in HPI and below GI: Reports: abdominal pain, nausea and vomiting 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 (~08/2022) hospitalized in [place] Cardiomegaly Chronic sinusitis of both maxillary sinuses Gout Afib Asperger syndrome mild Dyslipidemia Degenerative joint disease (DJD) of lumbar spine Obstructive sleep apnea Chronic low back pain Polycythemia Hypertension Substernal goiter Asthma Restrictive lung disease due to kyphoscoliosis Suspected exposure to asbestos Allergies Right renal stone Testosterone deficiency On TRT for 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 Erectile dysfunction Opioid contract exists previous Chronic pain syndrome Surgical History (Updated 08/30/23 @ 07:40 by Mihir Will MD) Hx of bilateral cataract extraction History of colostomy (11/01/22) Colostomy revision for control of bleeding History of exploratory laparotomy (10/15/22) Exploratory laparotomy with partial colon resection and with end colostomy formation Status post left hemicolectomy (10/08/22) laparoscopic converted to open, with splenic flexure takedown and right colon mobilization, primary anastamosis History of back surgery History of shoulder surgery History of appendectomy H/O arthroscopic knee surgery H/O ankle fusion H/O wrist surgery S/P ureteral stent placement Family History Grandfather CAD (coronary artery disease) Family/Other Cancer Grandmother Dementia Stroke Mother Lung disease Other Hypertension Denies family history of Rheumatoid arthritis Diabetes Lupus Clotting disorder Hyperlipidemia Chronic kidney disease (CKD) Suicide Anesthesia complication Bleeding disorder Social History Smoking and tobacco/nicotine status: former use of tobacco/nicotine Quit status (tobacco/nicotine): has quit using Year quit tobacco: 1975 [id number] Second hand smoke exposure: Yes Alcohol intake: never Substance/Drug Use: never Lives independently: Yes Current occupational status: retired Pets and animals: Yes Do you think of yourself as: Straight/Heterosexual Current gender identity: Male Physical Exam Narrative: EXAM NARRATIVE: Constitutional: the patient appears well nourished and of normal development. Vital signs as documented. No acute distress at present. Alert and oriented-to person, place, time and situation. Head, eyes, ears, nose, mouth, throat: Normocephalic, atraumatic. Pupils-equal, round, reactive to light. No scleral icterus. Normal-appearing external ears. Normal appearing nasal turbinates, no drainage. No obvious oral lesions, posterior oropharynx without erythema or exudates. Neck: Supple, trachea is midline, no lymphadenopathy, no jugular venous distension, thyromegaly, or carotid bruits. Carotid upstrokes are brisk bilaterally. Lungs: clear to auscultation to all lung toscano. Symmetrical rise and fall of chest, no obvious signs of increased work of breathing at present. Cardiac: Regular rate and rhythm, positive S1, S2. No murmurs, rubs or gallops that I can appreciate Abdomen: Soft, non-tender to palpation, normal active bowel sounds to all quadrants. No palpable masses, no organomegaly and abdominal bruits. Colostomy bag noted, ostomy does not appear to be dusky or vascular compromise. Extremities: 2+ pulses in the upper extremities that are equal bilaterally, 2+ pulses in the lower extremities that are equal bilaterally. Non-edematous. Moves all extremities well, sensation to all extremities are noted. Skin: Warm, dry, intact. Course ED course: I contacted the hospitalist for admission of the patient we did discuss the CT scan findings to include the subcapsular hematoma I suspect this is most likely secondary to the patient's lithotripsy that he received 1 month ago the patient is not currently on any anticoagulation he states he does take digoxin for his atrial fibrillation and given his inability to keep any of his medications down I will give digoxin to him IV. I will obtain a digoxin level as well and will adjust accordingly. At the request of Dr. Patel the hospitalist I also contacted Dr. Soares and advised him that we have placed an NG tube and provided the patient low intermittent wall suction as well as IV fluid for hydration. Given the patient's elevated lactic acid level have also provided initial antibiotics for the patient. Vital Signs: Vital signs: Vital Signs Temperature 99.1 F 10/08/23 20:09 Pulse Rate 125 H 10/09/23 01:34 Respiratory Rate 18 10/09/23 01:34 Blood Pressure 119/75 10/09/23 01:34 Pulse Oximetry 93 10/09/23 01:34 Oxygen Delivery Me thod Room Air 10/09/23 01:17 Oxygen Flow Rate 2 10/09/23 00:52 MDM - Abdominal Pain Medical Decision Making Physical exam completed and documented, I will obtain laboratory evaluation to include a CBC, CMP, lipase, urinalysis, and a CT scan of the patient's abdomen pelvis to evaluate for possible differential diagnosis of bowel obstruction, incarcerated hernia, abdominal wall strain, abdominal wall hematoma, constipation. I will provide the patient IV access and IV fluid as well as a CT scan abdomen pelvis with contrast for evaluation for possible colitis, acute appendicitis, diverticulitis, obstruction. Medical Records I reviewed the patient's medical records. Lab Data I reviewed the patient's lab results. 10/08/23 20:00 10/08/23 20:00 Labs/Radiology: Radiology Impressions Abdomen/Pelvis CT 10/08/23 20:26 IMPRESSION: 1. Small bowel obstruction versus ileus with multiple air and fluid-filled loops of dilated small bowel with a distended stomach and retained secretions in the distal esophagus. The transition point is not identified. 2. There is a subcapsular hematoma along the posterolateral aspect of the right kidney measuring at least 11.1 x 6.7 x 13.6 cm. 3. Decreased size of the heterogeneously attenuating hypodense lesion in the right lobe of the liver measuring 4.9 x 3.8 cm, previously 6.1 x 4.7 cm. COMMENTS: Consistent with the [employer]'s Incidental Findings Committee white paper (J Am Dg Radiol 2018): Any incidental renal lesion less than 1 cm or classified as too small to characterize, or any incidental cystic renal lesion characterized as simple-appearing, is likely benign. No follow-up imaging is recommended for these lesions per consensus recommendations based on imaging criteria. ADDENDUM: 10/08/232237 THIS REPORT CONTAINS FINDINGS THAT MAY BE CRITICAL TO PATIENT CARE. The findings were verbally communicated via telephone conference with STAN Hitchcock at 10:37 PM CYTOTECHNOLOGIST SUPERVISOR on 10/08/2023. The findings were acknowledged and understood. Abdomen X-Ray 10/09/23 00:01 IMPRESSION: The NG tube is positioned with its tip in the proximal stomach. Laboratory Results WBC 11.06 10^3/uL (3.29-11.43) 10/08/23 20:00 RBC 5.74 10^6/uL (3.85-5.65) H 10/08/23 20:00 Hgb 17.20 g/dL (11.27-16.99) H 10/08/23 20:00 Hct 54.3 % (37-53) H 10/08/23 20:00 MCV 94.6 fl (82-101) 10/08/23 20:00 MCH 30.0 pg (27-33) 10/08/23 20:00 MCHC 31.7 g/dL (30-55) 10/08/23 20:00 RDW 15.0 % (12.1-15.1) 10/08/23 20:00 Plt Count 212 10^3/cmm (157-399) 10/08/23 20:00 MPV 10.1 fL (7.4-10.4) 10/08/23 20:00 Neut % (Auto) 88.0 % 10/08/23 20:00 Lymph % (Auto) 4.8 % 10/08/23 20:00 [place] % (Auto) 5.0 % 10/08/23 20:00 Eos % (Auto) 1.4 % 10/08/23 20:00 Baso % (Auto) 0.4 % 10/08/23 20:00 Neut # (Auto) 9.75 10^3/uL (1.8-7.7) H 10/08/23 20:00 Lymph # (Auto) 0.5 10^3/uL (0.8-4.8) L 10/08/23 20:00 [place] # (Auto) 0.6 10^3/uL (0.2-0.9) 10/08/23 20:00 Eos # (Auto) 0.2 10^3/uL (0.0-0.8) 10/08/23 20:00 Baso # (Auto) 0.0 10^3/uL (0.0-0.1) 10/08/23 20:00 Nucleated RBC % (auto) 0 % 10/08/23 20:00 Nucleated RBCs # 0.0 /100WBC 10/08/23 20:00 PT 12.80 SECONDS (12.1-14.9) 10/08/23 20:00 INR 0.94 (0.8-1.2) 10/08/23 20:00 APTT 27.7 SECONDS (23.9-36.7) 10/08/23 20:00 Sodium 136 mmol/L (136-145) 10/08/23 20:00 Potassium 4.4 mmol/L (3.5-5.1) 10/08/23 20:00 Chloride 96 mmol/L (98-107) L 10/08/23 20:00 Carbon Dioxide 27 mmol/L (22-29) 10/08/23 20:00 Anion Gap 17.4 (5-19) 10/08/23 20:00 BUN 14 mg/dL (8-23) 10/08/23 20:00 Creatinine 1.1 mg/dL (0.7-1.2) 10/08/23 20:00 GFR Calculation 66.6 mL/min (90-130) L 10/08/23 20:00 Glucose 123 mg/dL (65-115) H 10/08/23 20:00 Calculated Osmolality 284 mOsm/kg (285-295) L 10/08/23 20:00 Lactic Acid 3.9 mmol/L (0.5-2.2) H 10/08/23 20:00 Lactic Acid (Sepsis) 3.0 mmol/L (0.5-2.2) H 10/08/23 22:35 Calcium 10.2 mg/dL (8.5-10.5) 10/08/23 20:00 Total Bilirubin 0.6 mg/dL (0.15-1.2) 10/08/23 20:00 AST 21 U/L (0-40) 10/08/23 20:00 ALT 20 U/L (0-41) 10/08/23 20:00 Alkaline Phosphatase 103 U/L (40-130) 10/08/23 20:00 Total Protein 8.7 g/dL (6.6-8.7) 10/08/23 20:00 Albumin 4.5 g/dL (3.5-5.2) 10/08/23 20:00 Globulin 4.2 g/dL (1.3-4.6) 10/08/23 20:00 Lipase 72 U/L (13-60) H 10/08/23 20:00 Procalcitonin 0.20 ng/mL (0-0.5) 10/08/23 20:00 Digoxin 0.4 ng/mL (0.6-1.2) L 10/08/23 20:00 All radiology interpretation(s) finalized by discharge EKG Data EKG 1: Interpretation: Twelve-lead EKG obtained at 2238 demonstrates atrial fibrillation with rapid ventricular response with a ventricular rate of 136 bpm, QRS duration 117 QT 262 QTc [address] elevation or depression to demonstrate acute ischemia or infarction at present. Discharge Plan Discharge Patient Disposition: Admitted As Inpatient Admit Provider: Bernadine Patel Clinical Impression: Bowel obstruction Condition: Stable Coding Level of Care Code ED Seam Finisher for Chg Mena
--- NOTE | 2023-10-08 20:26 | CTR_ITS ---
PROCEDURE INFORMATION: Exam: CT Abdomen And Pelvis With Contrast Exam date and time: 10/08/2023 9:43 PM Age: 68 years old Clinical indication: Abdominal pain; Prior surgery; Surgery date: 6+ months; Surgery type: PT has colostomy, hemlcolectomy, uretal stent, appy , ; additional info: Abdo pain TECHNIQUE: Imaging protocol: Computed tomography of the abdomen and pelvis with contrast. Radiation optimization: All CT scans at this facility use at least one of these dose optimization techniques: automated exposure control; mA and/or kV adjustment per patient size (includes targeted exams where dose is matched to clinical indication); or iterative reconstruction. Contrast material: OMNI 350; Contrast volume: 100 ml; Contrast route: INTRAVENOUS (IV); COMPARISON: CT angio chest w abd pel w con 04/24/2023 11:22 PM RADIATION DOSE METRICS: Total DLP (mGy-cm): 1303.61 FINDINGS: Liver: Decreased size of the heterogeneously attenuating hypodense lesion in the right lobe of the liver measuring 4.9 x 3.8 cm, previously 6.1 x 4.7 cm. Gallbladder and bile ducts: Normal. No calcified stones. No ductal dilation. Pancreas: Normal. No ductal dilation. Spleen: Normal. No splenomegaly. Adrenal glands: Normal. No mass. Kidneys and ureters: There is a subcapsular hematoma along the posterolateral aspect of the right kidney measuring at least 11.1 x 6.7 x 13.6 cm. There is a simple appearing cyst in the left kidney measuring 3.2 cm and 6 Hounsfield units. Stomach and bowel: Small bowel obstruction with multiple air and fluid-filled loops of dilated small bowel with a distended stomach and retained secretions in the distal esophagus. Partial colectomy with Juliana's pouch and right lower quadrant colostomy. Appendix: The appendix is absent. Intraperitoneal space: Unremarkable. No free air. No significant fluid collection. Vasculature: Unremarkable. No abdominal aortic aneurysm. Lymph nodes: Unremarkable. No enlarged lymph nodes. Urinary bladder: Unremarkable as visualized. Reproductive: Unremarkable as visualized. Bones/joints: Unremarkable. No acute fracture. Soft tissues: Unremarkable. CT/CT abdomen pelvis w con* [id number] IMPRESSION: 1. Small bowel obstruction versus ileus with multiple air and fluid-filled loops of dilated small bowel with a distended stomach and retained secretions in the distal esophagus. The transition point is not identified. 2. There is a subcapsular hematoma along the posterolateral aspect of the right kidney measuring at least 11.1 x 6.7 x 13.6 cm. 3. Decreased size of the heterogeneously attenuating hypodense lesion in the right lobe of the liver measuring 4.9 x 3.8 cm, previously 6.1 x 4.7 cm. COMMENTS: Consistent with the [employer]'s Incidental Findings Committee white paper (J Am Dg Radiol 2018): Any incidental renal lesion less than 1 cm or classified as too small to characterize, or any incidental cystic renal lesion characterized as simple-appearing, is likely benign. No follow-up imaging is recommended for these lesions per consensus recommendations based on imaging criteria.
[2023-10-08 20:35] LABS: Basophils % 0.4 %; Eosinophils # 0.2 10^3/uL (0.0-0.8); Eosinophils % 1.4 %; Hematocrit 54.3 % (37-53); Lymphocytes # 0.5 10^3/uL (0.8-4.8); Lymphocytes % 4.8 %; Mean Corpuscular HGB Conc 31.7 g/dL (30-55); Mean Corpuscular Volume 94.6 fl (82-101); Mean Platelet Volume 10.1 fL (7.4-10.4); Monocytes # 0.6 10^3/uL (0.2-0.9); Neutrophils # 9.75 10^3/uL (1.8-7.7); Nucleated Red Blood Cells % 0 %; Platelet Count 212 10^3/cmm (157-399); Red Blood Count 5.74 10^6/uL (3.85-5.65); White Blood Count 11.06 10^3/uL (3.29-11.43)
[2023-10-08 20:53] LABS: Alanine Aminotransferase 20 U/L (0-41); Albumin Level 4.5 g/dL (3.5-5.2); Alkaline Phosphatase 103 U/L (40-130); Anion Gap 17.4 (5-19); Aspartate Amino Transferase 21 U/L (0-40); Blood Urea Nitrogen 14 mg/dL (8-23); Calcium 10.2 mg/dL (8.5-10.5); Carbon Dioxide 27 mmol/L (22-29); Chloride 96 mmol/L (98-107); Globulin 4.2 g/dL (1.3-4.6); Glomerular Filtration Rate 66.6 mL/min (90-130); Glucose 123 mg/dL (65-115); Lactic Sepsis W/Reflex 3.9 mmol/L (0.5-2.2); Lipase 72 U/L (13-60); Osmolality Calculated 284 mOsm/kg (285-295); Potassium 4.4 mmol/L (3.5-5.1); Sodium 136 mmol/L (136-145); Total Bilirubin 0.6 mg/dL (0.15-1.2); Total Protein 8.7 g/dL (6.6-8.7)
[2023-10-08] MEDS: iohexol 350 mg/mL 500 mL Btl (per mL) IV (21:03)
[2023-10-08 22:19] LABS: Reflex Lactate Order REFLEX LACTIC ORDERD
[2023-10-08] MEDS: sodium chloride 0.9% 1,000 ML 999 ML IV (22:30)
--- NOTE | 2023-10-08 22:30 | PC.NURSE ---
Pt heart rate up to 140-158, Pt denies complaints. Dr Atkins informed. Will obtain new bloodwork and an EKG.]Pt is on bedside color television console monitor
--- NOTE | 2023-10-08 22:32 | ECG_ITS ---
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 Measurements Intervals [place] Rate: 136 P: 0 WI: 0 QRS: -9 QRSD: 117 T: 80 QT: 262 QTc: 395 Interpretive Statements ATRIAL FIBRILLATION WITH RAPID VENTRICULAR RESPONSE INCOMPLETE RIGHT BUNDLE BRANCH BLOCK [90+ ms QRS DURATION, TERMINAL R IN V1/V2, 40+ ms S IN I/aVL/V4/V5/V6] ANTEROSEPTAL MYOCARDIAL INFARCTION , AGE INDETERMINATE Compared to ECG 10/30/2022 00:02:29 Incomplete right bundle-branch block now present Myocardial infarct finding now present Intraventricular conduction delay no longer present ST (T wave) deviation no longer present Electronically Signed On 10-09-2023 9:35:25 PUBLIC POLICY ANALYST by Lance Feliz M.D. [email or web address]
[2023-10-08 22:37] VITALS: BP 111/61; PULSE 150; RESP 16; O2SAT 94
[2023-10-08 22:47] LABS: INR 0.94 (0.8-1.2); Partial Thromboplastin Time 27.7 SECONDS (23.9-36.7)
[2023-10-08 22:50] LABS: Digoxin 0.4 ng/mL (0.6-1.2)
--- NOTE | 2023-10-08 22:55 | PC.NURSE ---
Pt refusing NG tube at this time.
[2023-10-08] MEDS: digoxin 250 mcg/ml INJ 2 mL IVP (22:57)
[2023-10-08] MEDS: piperacillin-tazobactam 3.375 GM in sodium chloride 0.9% (plus) 50 ML IV (22:57)
[2023-10-08 22:58] VITALS: BP 111/61; PULSE 117; RESP 19; O2SAT 93
[2023-10-08 23:59] VITALS: BP 127/90; PULSE 123; RESP 21; O2SAT 94
[2023-10-09] VITALS (190 sets, daily range): BP systolic 104–177; BP diastolic 64–132; PULSE 39–128; RESP 12–31; TEMP 36.8–38.4; O2SAT 89–97; BMI 37.5
--- NOTE | 2023-10-09 00:01 | XRR_ITS ---
PROCEDURE INFORMATION: Exam: XR Abdomen Exam date and time: 10/09/2023 12:13 AM Age: 68 years old Clinical indication: Device placement; Gi device; Nasogastric tube; Additional info: Psot-ng tube placement TECHNIQUE: Imaging protocol: Radiologic exam of the abdomen. Views: Frontal supine view of the abdomen. 1 View. COMPARISON: CT abdomen pelvis w con* [id number] 10/08/2023 9:43 PM FINDINGS: Tubes, catheters and devices: The NG tube is positioned with its tip in the proximal stomach. Gastrointestinal tract: Normal. No bowel dilation. Bones/joints: Unremarkable. XR/XR abdomen 1V* [id number] IMPRESSION: The NG tube is positioned with its tip in the proximal stomach.
[2023-10-09] MEDS: digoxin 250 mcg/ml INJ 2 mL 500 MCG IVP (01:00)
--- NOTE | 2023-10-09 01:13 | PC.NURSE ---
PTs replaced pts colostomy bag. pt was cleaned with bath wipes/soap and water and was placed in a new gown with new sheets. pt was placed back into his bed and put back on the property assessment monitor at 0100. After being placed back in the bed his colostomy began to leak again. a rahul was placed around the bag to help contain the stool.
[2023-10-09] MEDS: lactated ringers 1,000 ML 100 ML IV (01:34)
--- NOTE | 2023-10-09 03:15 | PM.HP ---
Providers/Chief Complaint Admitting Physician: Bernadine Patel MD Primary Care Provider: Al Álvarez MD Chief Complaint: ABD PAIN History of Present Illness Charan Voss is a 68 year old male with metastatic invasive adenocarcinoma involving the splenic flexure of the colon diagnosed in 2021 s/p partial colon resection and colostomy in September 2022 , complicated by intra abdominal abscess, bleeding at stoma site and C diff colitis. Known to have liver metastases which was treated by microwave ablation. Currently on expectant management. He presents to the emergency room today with chief complaints of abdominal pain, poor stoma output that started quite suddenly last evening. States that he had a shepherds pie for lunch, and thereafter by the evening he started to develop cramping abdominal pain located around the stoma site. He had multiple episodes of vomiting. No hematemesis. States he also had a fever. He noticed that his stoma was only putting out green liquid material without any formed stools. It was putting out less than usual amount of gas. CT of the abdomen and pelvis performed in the emergency room showed small bowel obstruction versus ileus with multiple air and fluid-filled loops of small bowel with distended stomach and retained secretions in the distal esophagus. Incidentally noted was a subcapsular hematoma along the right kidney measuring 11 x 6 x 13 cm. Patient has a history of lithotripsy that was performed by Dr. Sauceda in [place] 1-1/2 months ago. He states that following the procedure he had intense pain lasting for about 2 to 3 weeks, however there does not appear to have been any imaging from this time. He is hemodynamically stable today. Hemoglobin is at 17. Patient is not usually on any anticoagulants though he does have a history of atrial fibrillation. It appears anticoagulation was discontinued after the bleeding complications in September 2022. Review of Systems General: Reports: 10 or more systems reviewed and unremarkable except in HPI and below Const: Denies: fever(s), chills or body aches Eyes: Denies: change in vision, blurry vision or photophobia ENMT: Reports: hoarseness; Denies: throat pain, enlarged tonsils, odynophagia or nasal congestion Card: Denies: chest pain, palpitations, irregular heart rhythm, edema, swelling of feet/ankles, lightheadedness, pre-syncope, dyspnea on exertion or orthopnea Resp: Denies: dyspnea, productive cough, non-productive cough, wheezing, stridor, pain on inspiration, change in phlegm color, hemoptysis or chest congestion GI: Denies: abdominal pain, nausea, vomiting, hematemesis, coffee ground emesis, dysphagia, heartburn, diarrhea, constipation, GI cramping, change in stool character, hematochezia or melena : Denies: flank pain, dysuria, urinary frequency, urinary urgency, urinary hesitancy or hematuria Musc: Denies: neck pain, back pain, extremity pain, joint swelling, joint warmth or deformity Neuro: Denies: headache(s), numbness in extremities, weakness in extremities, sensory changes, difficulty walking, frequent falls, dizziness, vertigo, behavioral changes, Slurred speech present or seizure-like activity Psych: Denies: anxiety, depression, suicidal ideation or homicidal ideation Endo: Denies: polyuria, polydipsia, tired all the time, cold intolerance or hot flashes Leif/Lymph: Denies: easy bruising or easy bleeding Medications/Allergies Home Medications Medication Instructions Recorded Confirmed Last Taken Type allopurinol 300 mg tablet 300 mg PO DAILY 10/15/19 08/29/23 09/18/22 History folic acid 1 mg tablet 1 mg PO DAILY@219910/15/19 08/29/23 09/17/22 History multivitamin 6 tab PO DAILY@219910/15/19 08/29/23 10/07/22 History ascorbic acid (vitamin C) 1,000 mg 1,000 mg PO DAILY@219910/27/19 08/29/23 09/17/22 History tablet (Vitamin C) sennosides 8.6 mg tablet (senna) 8.6 mg PO DAILY PRN Constipation 10/27/19 08/29/23 10/07/22 History vitamin E 670 mg (1,000 unit) 1,000 unit PO DAILY@219910/27/19 08/29/23 09/17/22 History capsule biotin 1 mg tablet 1 mg PO DAILY 11/15/20 08/29/23 09/17/22 History lycopene 10 mg capsule 10 mg PO DAILY 11/15/20 08/29/23 09/17/22 History resveratrol 250 mg capsule 250 mg PO QPM 11/15/20 08/29/23 09/17/22 History saw palmetto 500 mg capsule 500 mg PO DAILY 11/15/20 08/29/23 09/17/22 History loratadine 10 mg tablet (Claritin) 10 mg PO DAILY PRN Allergy Symptoms 11/21/21 08/29/23 07/17/22 History budesonide-formoterol HFA 80 2 puff inhalation BID@ #10.2 01/19/22 08/29/23 09/16/22 Rx mcg-4.5 mcg/actuation aerosol grams inhaler (Symbicort) ketoconazole 2 % shampoo 1 applic topical DAILY PRN Rash 07/18/22 08/29/23 10/05/22 History tadalafil 20 mg tablet (Cialis) 20 mg PO DAILY PRN sexual activity 09/18/22 08/29/23 Unknown History acetaminophen 500 mg tablet 500 mg PO Q6H PRN Pain 10/09/22 08/29/23 Unknown History cholecalciferol (vitamin D3) 10 10 mcg PO DAILY 10/09/22 08/29/23 Unknown History mcg (400 unit) capsule (Vitamin D3) melatonin 5 mg tablet 5 mg PO BEDTIME 10/09/22 08/29/23 Unknown History trazodone 150 mg tablet 300 mg PO BEDTIME 10/09/22 08/29/23 Unknown History triamcinolone acetonide 0.1 % 1 applic topical EVERY OTHER DAY 10/09/22 08/29/23 Unknown History topical cream gabapentin 300 mg capsule 300 mg PO TID 02/04/23 08/29/23 02/04/23 History lovastatin 40 mg tablet 20 mg PO BEDTIME 02/05/23 08/29/23 Unknown History testosterone cypionate 200 mg/mL 120 mg (0.6 mL) IM Q7D #10 mL 02/07/23 08/29/23 Unknown Rx intramuscular oil sodium hypochlorite 0.5 % solution 1 applic topical BID #473 mL 02/12/23 08/29/23 Unknown Rx (Dakin's Solution) clindamycin HCl 300 mg capsule 300 mg PO Q8H #21 caps 02/19/23 08/29/23 Unknown Rx furosemide 20 mg tablet 20 mg PO DAILY #90 tabs 04/19/23 08/29/23 Unknown Rx potassium chloride 10 mEq 10 meq PO DAILY #90 tabs 04/19/23 08/29/23 Unknown Rx tablet,extended release oxycodone 5 mg tablet 5 mg PO Q4H PRN pain #10 tabs 04/25/23 08/29/23 Unknown Rx digoxin 125 mcg (0.125 mg) tablet 125 mcg PO DAILY #90 tabs 06/07/23 08/29/23 Unknown Rx Allergies Allergy/AdvReac Type Severity Reaction Status Date / Time oats Allergy DIARRHEA Verified 10/08/23 20:24 caffeine AdvReac Unknown PALPITATION Verified 10/08/23 20:24 S apple AdvReac DIARRHEA, Verified 10/08/23 20:24 VOMITING AND CRAMPING egg AdvReac DIARRHEA, Verified 10/08/23 20:24 VOMITING AND STOMACH CRAMPING meperidine [From Demerol] AdvReac EXCESSIVE Verified 10/08/23 20:24 SEDATION morphine AdvReac HALLUCINATI Verified 10/08/23 20:24 ONS berries Allergy Unknown Uncoded 10/08/23 20:24 raw tomatoes Allergy ADR-Gastrointestinal Uncoded 10/08/23 20:24 Upset FRYE AdvReac DIARRHEA Uncoded 10/08/23 20:24 PFSH Acute PFSH: Medical History (Updated 10/09/23 @ 05:43 by Bernadine Patel MD) Afib Colon cancer Osteoarthritis Orthostatic hypotension 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 (~08/2022) hospitalized in [place] Cardiomegaly Chronic sinusitis of both maxillary sinuses Gout Asperger syndrome mild Dyslipidemia Degenerative joint disease (DJD) of lumbar spine Obstructive sleep apnea Chronic low back pain Polycythemia Hypertension Substernal goiter Asthma Restrictive lung disease due to kyphoscoliosis Suspected exposure to asbestos Allergies Right renal stone Testosterone deficiency On TRT for 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 Erectile dysfunction Opioid contract exists previous Chronic pain syndrome Surgical History Hx of bilateral cataract extraction History of colostomy (11/01/22) Colostomy revision for control of bleeding History of exploratory laparotomy (10/15/22) Exploratory laparotomy with partial colon resection and with end colostomy formation Status post left hemicolectomy (10/08/22) laparoscopic converted to open, with splenic flexure takedown and right colon mobilization, primary anastamosis History of back surgery History of shoulder surgery History of appendectomy H/O arthroscopic knee surgery H/O ankle fusion H/O wrist surgery S/P ureteral stent placement Family History Grandfather CAD (coronary artery disease) Family/Other Cancer Grandmother Dementia Stroke Mother Lung disease Other Hypertension Denies family history of Rheumatoid arthritis Diabetes Lupus Clotting disorder Hyperlipidemia Chronic kidney disease (CKD) Suicide Anesthesia complication Bleeding disorder Social History Smoking and tobacco/nicotine status: former use of tobacco/nicotine Quit status (tobacco/nicotine): has quit using Year quit tobacco: 1976 [id number] Second hand smoke exposure: Yes Alcohol intake: never Substance/Drug Use: never Lives independently: Yes Current occupational status: retired Pets and animals: Yes Do you think of yourself as: Straight/Heterosexual Current gender identity: Male Vitals/I&O/Wt Last Vital Signs Temp 99.1 F 10/08/23 20:09 Pulse 125 H 10/09/23 01:34 Resp 18 10/09/23 01:34 BP 119/75 10/09/23 01:34 Pulse Ox 93 10/09/23 01:34 O2 Del Method Room Air 10/09/23 01:17 O2 Flow Rate 2 10/09/23 00:52 10/08/23 10/08/23 10/09/23 14:59 22:59 06:59 Intake Total 1050 / 1050 Balance 1050 / 1050 Weight last 48 hrs Weight 139.706 kg Weight 145.15 kg Physical Exam Narrative: General: No acute distress, AO x3, NG in place, to low intermittent suction HEENT: PERRLA, pupils bilaterally equal and reactive, pallors not present Chest: Normal vesicular breath sounds, no added sounds, equal good air entry bilaterally CVS: S1-S2 regular, no murmurs, no tachycardia, no gallops, no rubs Abdomen: Soft, colostomy right lower quadrant, liquid green with minimal formed elements Neuro: No focal deficits, no facial deformity, AO x3, power 5/5 in all limbs Data 10/09/23 03:47 10/09/23 03:47 A&P Assessment and plan (1) Small bowel obstruction: (2) Renal hematoma: (3) Metastases to the liver: (4) Afib: Qualifiers: Atrial fibrillation type: longstanding persistent Qualified Code(s): I48.11 - Longstanding persistent atrial fibrillation Plan 68-year-old male with history as outlined above presenting today with multiple episodes of nausea vomiting abdominal pain and poor colostomy output. CAT scan showing evidence of small bowel obstruction without discrete transition point noted. N.p.o. for bowel rest NG tube in place, currently to low intermittent suction General surgery consult As needed morphine for pain management As needed Zofran for nausea/vomiting management Check C. difficile, currently noted to have liquid output at the stoma site. Patient states that the stoma started being functional after presentation to the emergency room. Incidentally noted to have subcapsular hematoma of the right kidney 11 x 13 cm. Unknown timeline. States he had lithotripsy 1-1/2 months ago following which she had intense pain lasting for about 2 to 3 weeks. Suspect that may be related to recent lithotripsy as reported. No signs of active bleeding currently. Hemodynamically stable Hemoglobin at 17, trend every 8 hours. Any evidence of falling hemoglobin or hemodynamic instability, active bleeding would need to be considered and patient would likely need a higher level of care. Currently creatinine at 1.1, reviewing past numbers baseline appears to be between 1.3-1.5 over the last year. No obvious hematuria A-fib, currently with RVR at heart rate of 120. Start metoprolol 2.5 mg every 4 hours, plan to transition to oral as soon as feasible from a bowel standpoint. Metoprolol to be titrated based on response. Holding off on initiating anticoagulation due to discovery of renal hematoma. DVT prophylaxis: SCDs only Full code Attestations Medical Necessity Statement*: Greater than 2 midnight admission is anticipated for management of small bowel obstruction, close monitoring for any signs of active bleeding Coding Level of Care Code Acute Code for Chg Fwd High MDM includes number and complexity of problems actively addressed during encounter, amount and/or complexity of data reviewed/ordered and described risk of complication, morbidity or mortality of management as documented Diagnoses Small bowel obstruction K56.609 Renal hematoma S37.019A Metastases to the liver C78.7 Longstanding persistent atrial fibrillation I48.11 Atrial fibrillation type: longstanding persistent
[2023-10-09 03:57] LABS: Basophils % 0.3 %; Eosinophils % 0.2 %; Hematocrit 50.6 % (37-53); Lymphocytes # 0.6 10^3/uL (0.8-4.8); Lymphocytes % 5.3 %; Mean Corpuscular Hemoglobin 30.6 pg (27-33); Mean Corpuscular Volume 95.7 fl (82-101); Mean Platelet Volume 9.9 fL (7.4-10.4); Monocytes # 0.8 10^3/uL (0.2-0.9); Monocytes % 6.9 %; Neutrophils # 9.39 10^3/uL (1.8-7.7); Neutrophils % 86.9 %; Nucleated Red Blood Cells % 0 %; Platelet Count 181 10^3/cmm (157-399); Red Blood Count 5.29 10^6/uL (3.85-5.65); Red Cell Distribution Width 15.3 % (12.1-15.1)
[2023-10-09] MEDS: sodium chloride 0.9% 1,000 ML 75 ML IV ×2 (04:12→22:02)
[2023-10-09] MEDS: metoprolol tartrate 1 mg/1 mL SDV 5 mL 2.5 MG IVP ×4 (04:14→15:02)
[2023-10-09 04:23] LABS: Blood Urea Nitrogen 19 mg/dL (8-23); Calcium 9.4 mg/dL (8.5-10.5); Carbon Dioxide 24 mmol/L (22-29); Chloride 99 mmol/L (98-107); Glomerular Filtration Rate 54.9 mL/min (90-130); Glucose 141 mg/dL (65-115); Osmolality Calculated 281 mOsm/kg (285-295); Sodium 133 mmol/L (136-145)
[2023-10-09 04:31] LABS: Anion Gap 15.9 (5-19); Potassium 5.9 mmol/L (3.5-5.1)
[2023-10-09 06:05] LABS: Urine Appearance Clear (CLEAR)
[2023-10-09 06:07] LABS: Add Urine Culture? No; Add Urine Microscopic? YES; Amorphous Sediment Urine 1+ /hpf; Bacteria Urine TRACE /hpf; Bilirubin Urine 1+ (Negative); Blood Urine Neg (Negative); Glucose Urine UA Norm (Normal); Ketones Urine Negative (Negative); Leukocyte Esterase Urine Negative (Negative); Nitrate Urine Negative (Negative); Protein Urine 1+ (Negative); Urine Color Dark Yellow (Yellow); Urobilinogen Urine 1 mg/dL (Negative); pH Urine 5 (5-7)
[2023-10-09] MEDS: insulin regular-human 10 UNIT in SYRINGE 1 EACH IVP (06:38)
[2023-10-09] MEDS: piperacillin-tazobactam 3.375 GM in sodium chloride 0.9% (plus) 50 ML IV ×3 (06:38→21:57)
[2023-10-09] MEDS: dextrose 50% syringe 50 mL IVP (06:39)
[2023-10-09] MEDS: HYDROmorphone 1 mg/mL INJ 1 mL 0.5 MG IVP ×3 (07:45→18:23)
--- NOTE | 2023-10-09 08:36 | XR_ITS ---
WS: [id number] XR chest 1V portable [id number] REASON FOR EXAM: fever FINDINGS: Nasogastric tube which appears coiled in the fundus of the stomach. Thoracolumbar Marr rods. Increased soft tissue density in the upper mediastinum with impingement on the left lateral aspect of the trachea. This abnormality was present 10/16/2020 and does not appear to have changed significantl y. This may represent anomalous or tortuous great vessel or mediastinal thyroid. Calcified granulomas disease in both hemithoraces. No acute pulmonary parenchymal or pleural abnormality. IMPRESSION: No acute chest abnormality identified.
[2023-10-09 09:33] LABS: C Reactive Protein 68.8 mg/L (0.0-4.9)
[2023-10-09 09:40] LABS: Procalcitonin 0.42 ng/mL (0-0.5)
[2023-10-09] MEDS: ondansetron 2 mg/ML SDV 2 mL 4 MG IVP (10:22)
[2023-10-09 12:15] LABS: Adenovirus Not Detected (NOT DETECT); Chlamydia Pneumoniae Not Detected (NOT DETECT); Coronavirus 229E,HKU1,NL63,OC4 Not Detected (NOT DETECT); Human Metapneumovirus Not Detected (NOT DETECT); Human Rhinovirus/Enterovirus Not Detected (NOT DETECT); Influenza A Not Detected (NOT DETECT); Influenza A H1 Not Detected (NOT DETECT); Influenza A H1-2009 Not Detected (NOT DETECT); Influenza A H3 Not Detected (NOT DETECT); Influenza B Not Detected (NOT DETECT); Mycoplasma Pneumoniae Not Detected (NOT DETECT); Parainfluenza Virus Type 1 Not Detected (NOT DETECT); Parainfluenza Virus Type 2 Not Detected (NOT DETECT); Parainfluenza Virus Type 3 Not Detected (NOT DETECT); Parainfluenza Virus Type 4 Not Detected (NOT DETECT); Respiratory Syncytial Virus A Not Detected (NOT DETECT); Respiratory Syncytial Virus B Not Detected (NOT DETECT); SARS-COV-2 Not Detected (NOT DETECT)
[2023-10-09 12:22] LABS: Hematocrit 49.6 % (37-53)
--- NOTE | 2023-10-09 12:23 | USCV_ITS ---
Charan Voss Age: 68 Gender: M : 1955 Exam Date: 10/09/2023 15:20 Ordering Phys: Blanco Carter MD Technologist: MARY Exam Location: [facility] – [place] Indication: AFIB, Stasis HISTORY: AFIB. Stasis PROCEDURES: Venous duplex imaging was performed in bilateral lower extremities. Bilaterally, the common femoral, superficial femoral, profunda femoral, popliteal, posterior tibial, greater saphenous veins, and the peroneal trunk were identified and interrogated in the standard fashion. These veins were found to be easily compressible with spontaneous blood flow. No evidence of insufficiency or thrombus noted. Serial compression, augmentation maneuvers, and spectral Doppler flow evaluation were performed. FINDINGS: No evidence of DVT seen in any vessel visualized at this time. CONCLUSIONS No evidence of right lower extremity DVT. No evidence of left lower extremity DVT. Jairon Dobbs MD (Electronically Signed) Final Date: 09 October 2023 15:59 S
--- NOTE | 2023-10-09 12:23 | ECG_ITS ---
Test Date: 2023-10-09 Pat Name: Charan Voss Department: Room: ICU06 Gender: Male Cash Processor: : 1955 Requested By: Blanco Carter Order Number: [id number] Hilary MD: Lance Feliz M.D. Measurements Intervals [place] Rate: 82 P: 0 RI: 0 QRS: -10 QRSD: 114 T: 119 QT: 339 QTc: 396 Interpretive Statements ATRIAL FIBRILLATION SEPTAL MYOCARDIAL INFARCTION [40+ ms Q WAVE IN V1/V2], OF INDETERMINATE AGE MODERATE T-WAVE ABNORMALITY, CONSIDER LATERAL ISCHEMIA [-0.1+ mV T WAVE IN I/aVL/V5/V6] Compared to ECG 10/08/2023 22:38:56 T-wave abnormality now present Possible ischemia now present Incomplete right bundle-branch block no longer present Myocardial infarct finding still present Electronically Signed On 10-09-2023 18:56:59 HAMPER MAKER by Lance Feliz M.D. [id number]
[2023-10-09 12:40] LABS: Erythrocyte Sedimentation Rate 47 mm/hr (0-10)
[2023-10-09 13:24] LABS: Troponin(5th) Baseline 37 ng/L (0-15)
--- NOTE | 2023-10-09 15:04 | ECG_ITS ---
[facility] Test Date: 2023-10-09 Pat Name: Charan Voss Department: Room: ICU06 Gender: Male Repair Table Operator: : 1955 Requested By: Blanco Carter Order Number: [id number] Hilary MD: Lance Feliz M.D. Measurements Intervals [place] Rate: 80 P: 0 PA: 0 QRS: -3 QRSD: 117 T: 128 QT: 358 QTc: 414 Interpretive Statements ATRIAL FIBRILLATION SEPTAL MYOCARDIAL INFARCTION [40+ ms Q WAVE IN V1/V2], OF INDETERMINATE AGE MODERATE T-WAVE ABNORMALITY, CONSIDER LATERAL ISCHEMIA [-0.1+ mV T WAVE IN I/aVL/V5/V6] Compared to ECG 10/09/2023 13:01:53 No significant changes Electronically Signed On 10-09-2023 18:59:26 OFFICE MACHINE INSPECTOR by Lance Feliz M.D. [id number]
--- NOTE | 2023-10-09 15:10 | P.PN_ITS ---
Subjective 2 Subjective: Patient was seen this morning, denies any abdominal pain, he did have episodes of feverish throughout the night, his colostomy bag has stool in it, denies any lightheadedness, no dizziness, his right flank pain is minimal, denies any dysuria, hematuria, he has a sacral decubitus ulcer which she rotated to show me, he tells me is clinically significantly better, he follows up with wound care, Vitals/I&O/Wt Last Vital Signs Temp 99.1 F 10/09/23 12:30 Pulse 86 10/09/23 12:30 Resp 19 H 10/09/23 12:30 BP 177/103 10/09/23 12:30 Pulse Ox 94 10/09/23 12:30 O2 Del Method Nasal Cannula 10/09/23 08:00 O2 Flow Rate 2 10/09/23 08:00 10/09/23 10/09/23 10/09/23 06:59 14:59 22:59 Intake Total 1143.75 / 1143.75 1050.1 / 1050.1 Output Total 1100 / 1100 1625 / 1625 Balance 43.75 / 43.75 -574.9 / -574.9 Weight last 48 hrs Weight 139.706 kg Weight 139.706 kg Weight 145.15 kg Physical Exam 2 Const: COMMON NORMALS: no acute distress and patient oriented x3 Resp: COMMON NORMALS: normal respiratory effort, No retractions, No use of accessory muscles and clear to auscultation bilaterally AUSCULTATION: clear to auscultation bilaterally Cardio: COMMON NORMALS: regular rate, regular rhythm, S1 normal heart sound present and S2 normal heart sound present RATE: regular rate RHYTHM: r egular rhythm HEART SOUNDS: S1 normal heart sound present and S2 normal heart sound present GI: COMMON NORMALS: Normal to inspection, nondistended, normoactive bowel sounds present and non-tender OTHER: colostomy, tissue is pink and fleshy, with stool in bag Extremity: COMMON NORMALS: no pedal edema Neuro: COMMON NORMALS: patient oriented x3 Psych: COMMON NORMALS: mental status grossly normal Skin: NARRATIVE SKIN EXAM: sacral decubitus clean dry Data 10/09/23 11:40 10/09/23 03:47 A&P Assessment and plan (1) Small bowel obstruction: (2) Renal hematoma: (3) Metastases to the liver: (4) Afib: Qualifiers: Atrial fibrillation type: longstanding persistent Qualified Code(s): I 48.11 - Longstanding persistent atrial fibrillation Plan 68-year-old male with history as outlined above presenting today with multiple episodes of nausea vomiting abdominal pain and poor colostomy output. CAT scan showing evidence of small bowel obstruction without discrete transition point noted. N.p.o. for bowel rest NG tube in place, currently to low intermittent suction On examination has liquid stool from colostomy bag has good bowel sounds General surgery consult As needed morphine for pain management As needed Zofran for nausea/vomiting management Check C. difficile, currently noted to have liquid output at the stoma site. Patient states that the stoma started being functional after presentation to the emergency room. Incidentally noted to have subcapsular hematoma of the right kidney 11 x 13 cm. Unknown timeline. States he had lithotripsy 1-1/2 months ago following which she had intense pain lasting for about 2 to 3 weeks. Suspect that may be related to recent lithotripsy as reported. No signs of active bleeding currently. Hemodynamically stable Hemoglobin at 17, trend every 8 hours. Any evidence of falling hemoglobin or hemodynamic instability, active bleeding would need to be considered and patient would likely need a higher level of care. Currently creatinine at 1.1, reviewing past numbers baseline appears to be between 1.3-1.5 over the last year. No obvious hematuria A-fib, currently with RVR at heart rate of 120. Start metoprolol 2.5 mg every 4 hours, plan to transition to oral as soon as feasible from a bowel standpoint. Metoprolol to be titrated based on response. Holding off on initiating anticoagulation due to discovery of renal hematoma. Febrile episode, chest x-ray, respiratory viral panel, blood cultures, urine cultures, A sacral decubitus ulcer, on examination it is 1.1 cm, he healing quite well according to patient, DVT prophylaxis: SCDs only Full code Attestations 2 Medical Necessity Statement*: Patient requires hospitalization for bowel obstruction, renal hematoma, febrile Diagnoses Small bowel obstruction K56.609 Renal hematoma S37.019A Metastases to the liver C78.7 Longstanding persistent atrial fibrillation I48.11 Atrial fibrillation type: longstanding persistent
[2023-10-09 16:16] LABS: Troponin 5 2HR 35.79 ng/L (0-15)
[2023-10-09 16:18] LABS: Troponin 5 2HR Delta -1.21 ABS# (0-10)
--- NOTE | 2023-10-09 16:58 | P.CONIM_ITS ---
Providers/Reason For Consult 2 Consulting Physician/Specialty*: Denise Valle, DO/General surgery Reason for Consult*: Abdominal pain nausea vomiting diarrhea Attending Physician: Blanco Carter MD Primary Care Provider: Al Álvarez MD History of Present Illness History of Present Illness Charan Voss is a 68 year old male, who is well-known to me, presents to the hospital with 1 day history of abdominal pain which was sharp and constant located in the right lower quadrant over his ostomy site along with nausea vomiting and liquid stool from his ostomy. The pain radiated across to his abdomen. Palpation made the pain worse. Nothing made the pain better. He denies any hematochezia, melena and/or hematemesis. CT the abdomen pelvis shows ileus versus partial small bowel obstruction. An NG tube has been placed. He has a past medical history of colon cancer metastatic to the liver and subtotal colectomy with a right lower quadrant colostomy. Review of Systems 2 General: Reports: 10 or more systems reviewed and unremarkable except in HPI and below Medications/Allergies Home Medications Medication Instructions Recorded Confirmed Last Taken Type allopurinol 300 mg tablet 300 mg PO DAILY 10/15/19 10/09/23 09/18/22 History multivitamin 6 tab PO DAILY@2200 10/15/19 10/09/23 10/07/22 History sennosides 8.6 mg tablet (senna) 8.6 mg PO DAILY PRN Constipation 10/27/19 10/09/23 10/07/22 History lycopene 10 mg capsule 10 mg PO DAILY 11/15/20 10/09/23 09/17/22 History resveratrol 250 mg capsule 250 mg PO QPM 11/15/20 10/09/23 09/17/22 History saw palmetto 500 mg capsule 500 mg PO DAILY 11/15/20 10/09/23 09/17/22 History loratadine 10 mg tablet (Claritin) 10 mg PO DAILY 11/21/21 10/09/23 07/17/22 History ketoconazole 2 % shampoo 1 applic topical DAILY PRN Rash 07/18/22 10/09/23 10/05/22 History tadalafil 20 mg tablet (Cialis) 20 mg PO DAILY PRN sexual activity 09/18/22 10/09/23 Unknown History acetaminophen 500 mg tablet 500 mg PO Q6H PRN Pain 10/09/22 10/09/23 Unknown History cholecalciferol (vitamin D3) 10 10 mcg PO DAILY 10/09/22 10/09/23 Unknown History mcg (400 unit) capsule (Vitamin D3) melatonin 5 mg tablet 10 mg PO BEDTIME 10/09/22 10/09/23 Unknown History trazodone 150 mg tablet 300 mg PO BEDTIME 10/09/22 10/09/23 Unknown History gabapentin 300 mg capsule 300 mg PO TID 02/04/23 10/09/23 02/04/23 History lovastatin 40 mg tablet 40 mg PO BEDTIME 02/05/23 10/09/23 Unknown History testosterone cypionate 200 mg/mL 120 mg (0.6 mL) IM Q7D #10 mL 02/07/23 10/09/23 Unknown Rx intramuscular oil furosemide 20 mg tablet 20 mg PO DAILY #90 tabs 04/19/23 10/09/23 Unknown Rx potassium chloride 10 mEq 10 meq PO DAILY #90 tabs 04/19/23 10/09/23 Unknown Rx tablet,extended release digoxin 125 mcg (0.125 mg) tablet 125 mcg PO DAILY #90 tabs 06/07/23 10/09/23 Unknown Rx Allergies Allergy/AdvReac Type Severity Reaction Status Date / Time oats Allergy DIARRHEA Verified 10/08/23 20:24 Opioids - Morphine Analogues Allergy ADR-Chest Verified 10/09/23 08:12 Pain caffeine AdvReac Unknown PALPITATION Verified 10/08/23 20:24 S apple AdvReac DIARRHEA, Verified 10/08/23 20:24 VOMITING AND CRAMPING egg AdvReac DIARRHEA, Verified 10/08/23 20:24 VOMITING AND STOMACH CRAMPING meperidine [From Demerol] AdvReac EXCESSIVE Verified 10/08/23 20:24 SEDATION morphine AdvReac HALLUCINATI Verified 10/08/23 20:24 ONS berries Allergy Unknown Uncoded 10/08/23 20:24 raw tomatoes Allergy ADR-Gastrointestinal Uncoded 10/08/23 20:24 Upset FRYE AdvReac DIARRHEA Uncoded 10/08/23 20:24 Current Medications Generic Name Dose Route Start Last Admin Trade Name Freq PRN Reason Stop Dose Admin Digoxin 125 mcg 10/09/23 09:00 10/09/23 09:51 Digoxin 125 Mcg Tablet PO Not Given DAILY SOFIA Hydromorphone HCl 0.5 mg 10/09/23 03:13 10/09/23 18:23 Hydromorphone 1 Mg/Ml Inj 1 Ml IVP 0.5 mg Q6H PRN Administration SEVERE PAIN Sodium Chloride 1,000 mls @ 75 mls/hr 10/09/23 03:15 10/09/23 22:02 Sodium Chloride 0.9% IV 75 mls/hr .[id number] SOFIA Administration Piperacillin Sod/Tazobactam 50 mls @ 12.5 mls/hr 10/09/23 07:00 10/10/23 02:00 Sod 3.375 gm/ Sodium Chloride IV Infused Q8H SOFIA Infusion Metoprolol Tartrate 25 mg 10/09/23 16:45 10/10/23 04:36 Metoprolol Tartrate 25 Mg Tablet PO 25 mg Q12H SOFIA Administration Ondansetron HCl 4 mg 10/09/23 03:08 10/09/23 10:22 Ondansetron 2 Mg/Ml Sdv 2 Ml IVP 4 mg Q8H PRN Administration vomiting, or N/V if npo Phenol 3 spray 10/09/23 20:34 10/09/23 21:24 Phenol Oral [place] 177 Ml MUCOUS MEM 3 spray Q2H PRN Administration SORE THROAT Vancomycin HCl 125 mg 10/09/23 16:45 10/10/23 04:37 Vancomycin 125 Mg Capsule PO 125 mg Q6H SOFIA Administration PFSH Acute 2 PFSH: Medical History (Updated 10/10/23 @ 07:01 by Isaias Soares DO) Ileus Afib Colon cancer Osteoarthritis Orthostatic hypotension 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 (~08/2022) hospitalized in [place] Cardiomegaly Chronic sinusitis of both maxillary sinuses Gout Asperger syndrome mild Dyslipidemia Degenerative joint disease (DJD) of lumbar spine Obstructive sleep apnea Chronic low back pain Polycythemia Hypertension Substernal goiter Asthma Restrictive lung disease due to kyphoscoliosis Suspected exposure to asbestos Allergies Right renal stone Testosterone deficiency On TRT for 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 Erectile dysfunction Opioid contract exists previous Chronic pain syndrome Surgical History Hx of bilateral cataract extraction History of colostomy (11/01/22) Colostomy revision for control of bleeding History of exploratory laparotomy (10/15/22) Exploratory laparotomy with partial colon resection and with end colostomy formation Status post left hemicolectomy (10/08/22) laparoscopic converted to open, with splenic flexure takedown and right colon mobilization, primary anastamosis History of back surgery History of shoulder surgery History of appendectomy H/O arthroscopic knee surgery H/O ankle fusion H/O wrist surgery S/P ureteral stent placement Family History Grandfather CAD (coronary artery disease) Family/Other Cancer Grandmother Dementia Stroke Mother Lung disease Other Hypertension Denies family history of Rheumatoid arthritis Diabetes Lupus Clotting disorder Hyperlipidemia Chronic kidney disease (CKD) Suicide Anesthesia complication Bleeding disorder Social History Smoking and tobacco/nicotine status: former use of tobacco/nicotine Quit status (tobacco/nicotine): has quit using Year quit tobacco: 1976 [id number] Second hand smoke exposure: Yes Alcohol intake: never Substance/Drug Use: never Lives independently: Yes Current occupational status: retired Pets and animals: Yes Do you think of yourself as: Straight/Heterosexual Current gender identity: Male Vitals/I&O/Wt Last Vital Signs Temp 99.3 F 10/10/23 05:13 Pulse 81 10/10/23 06:00 Resp 18 10/10/23 03:00 BP 133/85 10/10/23 02:00 Pulse Ox 93 10/10/23 03:00 O2 Del Method Nasal Cannula 10/09/23 19:52 O2 Flow Rate 2 10/09/23 08:00 10/09/23 10/09/23 10/10/23 14:59 22:59 06:59 Intake Total 1050.1 / 1050.1 863.542 / 1913.642 170 / 2083.642 Output Total 1625 / 1625 3125 / 4750 Balance -574.9 / -574.9 -2261.458 / -2836.358 170 / -2666.358 Weight last 48 hrs Weight 308 lb Weight 308 lb Weight 320 lb Physical Exam 2 Narrative: General : Patient is well developed , no acute distress, oriented x3 Head : Normal cephalic, a-traumatic. Ears : Pinnae and external canal are normal. Hearing is normal. Eyes : PERRLA, Sclera and injection are normal. No conjunctival discharge. Nose : Mucous membranes are without erythema. Throat : buccal mucosa is normal, gums are without significant recession or hypertrophy. Lungs : Equal chest rise bilaterally, no use of accessory muscles, trachea is midline. Cor : Rate and rhythm are normal. Abdomen : Soft, ND, mild tenderness palpation around the right lower quadrant colostomy, no g/r/m Colostomy: [place] patent and producing Extremities : No edema, no cyanosis or clubbing, dorsalis pedis pulses are present bilaterally, non-tender to palpation of calves. Upper extremities are normal bilaterally. Back : non-tender to palpation, no CVA tenderness. Neuro : CN II - XII intact, Upper and lower extremities have equal and full strength Data 10/10/23 04:38 10/10/23 04:38 A&P Assessment and plan (1) Abdominal pain: (2) Ileus: Plan I favor ileus over bowel obstruction, likely due to gastroenteritis. Continue NG tube to low intermittent suction for now. Stool studies are ordered. Will reassess in the morning for removal of NG tube and starting a clear liquid diet. Medical management per hospitalist Coding Level of Care Code 46581 Diagnoses Abdominal pain R10.9 Ileus K56.7
[2023-10-09] MEDS: metoprolol tartrate 25 mg Tablet PO (17:11)
[2023-10-09] MEDS: vancomycin 125 mg Capsule PO ×2 (17:11→22:03)
--- NOTE | 2023-10-09 18:26 | PC.NURSE ---
SHift SUmmary: Uneventful shift. Patient rested in bed throughout the day. total colostomy output has been 2175mL of green liquid stool with small solids mixed in. Total output from NG tube was 700mL. Changed from NPO to sips and chips while intermittent suciton is on. 1 brief run of vtach (strip in physical chart), Dr rivera notified and metoprolol was adjusted.
--- NOTE | 2023-10-09 18:43 | ECG_ITS ---
[facility] Test Date: 2023-10-09 Pat Name: Charan Voss Department: Room: ICU06 Gender: Male Damage Inside Adjuster: : 1955 Requested By: Blanco Carter Order Number: [id number] Hilary MD: Lance Feliz M.D. Measurements Intervals [place] Rate: 71 P: 0 ND: 0 QRS: -1 QRSD: 116 T: 142 QT: 352 QTc: 385 Interpretive Statements ATRIAL FIBRILLATION SEPTAL MYOCARDIAL INFARCTION [40+ ms Q WAVE IN V1/V2], OF INDETERMINATE AGE MODERATE T-WAVE ABNORMALITY, CONSIDER LATERAL ISCHEMIA [-0.1+ mV T WAVE IN I/aVL/V5/V6] Compared to ECG 10/09/2023 15:04:42 No significant changes Electronically Signed On 10-09-2023 18:59:02 FACILITIES PAINTER by Lance Feliz M.D. [id number]
[2023-10-09 19:29] LABS: Hematocrit 51.8 % (37-53)
[2023-10-09 19:46] LABS: Troponin 5 6HR 35.46 ng/L (0-15)
[2023-10-09 19:48] LABS: Troponin 5 6HR Delta -1.54 ng/L (0-12)
[2023-10-09] MEDS: phenol oral Spray 177 mL 3 SPRAY MUCOUS MEM (21:24)
[2023-10-10] VITALS (20 sets, daily range): BP systolic 101–162; BP diastolic 64–106; PULSE 77–98; RESP 11–27; TEMP 36.2–37.4; O2SAT 89–101; BMI 36.7
[2023-10-10] MEDS: metoprolol tartrate 25 mg Tablet PO ×2 (04:36→18:01)
[2023-10-10] MEDS: vancomycin 125 mg Capsule PO ×4 (04:37→22:28)
[2023-10-10 05:08] LABS: Basophils % 0.2 %; Eosinophils # 0.2 10^3/uL (0.0-0.8); Eosinophils % 2.6 %; Hematocrit 52.9 % (37-53); Lymphocytes # 0.9 10^3/uL (0.8-4.8); Lymphocytes % 14.7 %; Mean Corpuscular HGB Conc 31.6 g/dL (30-55); Mean Corpuscular Hemoglobin 30.1 pg (27-33); Mean Corpuscular Volume 95.3 fl (82-101); Mean Platelet Volume 9.6 fL (7.4-10.4); Monocytes # 0.8 10^3/uL (0.2-0.9); Monocytes % 12.3 %; Neutrophils # 4.26 10^3/uL (1.8-7.7); Neutrophils % 69.7 %; Nucleated Red Blood Cells % 0 %; Platelet Count 168 10^3/cmm (157-399); Red Blood Count 5.55 10^6/uL (3.85-5.65); Red Cell Distribution Width 15.1 % (12.1-15.1); White Blood Count 6.11 10^3/uL (3.29-11.43)
[2023-10-10 05:25] LABS: Alanine Aminotransferase 17 U/L (0-41); Albumin Level 3.8 g/dL (3.5-5.2); Alkaline Phosphatase 79 U/L (40-130); Anion Gap 15.2 (5-19); Aspartate Amino Transferase 19 U/L (0-40); Blood Urea Nitrogen 25 mg/dL (8-23); C Reactive Protein 119.9 mg/L (0.0-4.9); Calcium 9.7 mg/dL (8.5-10.5); Carbon Dioxide 34 mmol/L (22-29); Chloride 97 mmol/L (98-107); Glomerular Filtration Rate 60.2 mL/min (90-130); Glucose 121 mg/dL (65-115); Magnesium 2.4 mg/dL (1.7-2.3); Osmolality Calculated 300 mOsm/kg (285-295); Phosphorus 4.1 mg/dL (2.5-4.5); Potassium 4.2 mmol/L (3.5-5.1); Sodium 142 mmol/L (136-145); Total Bilirubin 0.5 mg/dL (0.15-1.2); Total Protein 7.8 g/dL (6.6-8.7)
[2023-10-10 05:37] LABS: NT Pro B Type Natriuretic Pept 661 pg/mL (0-125); Procalcitonin 0.39 ng/mL (0-0.5)
[2023-10-10] MEDS: piperacillin-tazobactam 3.375 GM in sodium chloride 0.9% (plus) 50 ML IV ×2 (06:34→15:52)
[2023-10-10] MEDS: digoxin 125 mcg Tablet PO (09:01)
--- NOTE | 2023-10-10 13:38 | PC.NURSE ---
Pt has been frequently encouraged to reposition at least every two hours to prevent pressure injuries. Offered assistance in repositioning. Pt politely declined.
--- NOTE | 2023-10-10 14:24 | P.PN_ITS ---
Subjective 2 Subjective: Is seen and examined. He reports that his abdominal pain is much improved. Denies any nausea or vomiting. Vitals/I&O/Wt Last Vital Signs Temp 99.3 F 10/10/23 05:13 Pulse 90 10/10/23 12:00 Resp 18 10/10/23 12:00 BP 162/92 10/10/23 12:00 Pulse Ox 97 10/10/23 12:00 O2 Del Method Nasal Cannula 10/10/23 08:00 O2 Flow Rate 2 10/10/23 08:00 10/09/23 10/10/23 10/10/23 22:59 06:59 14:59 Intake Total 863.542 / 1913.642 170 / 2083.642 Output Total 3125 / 4750 1200 / 1200 Balance -2261.458 / -2836.358 170 / -2666.358 -1200 / -1200 Weight last 48 hrs Weight 302 lb 0.533 oz Weight 308 lb Weight 308 lb Weight 320 lb Physical Exam 2 Narrative: General: No acute distress, awake alert and oriented x 3 Abdomen: Soft, nondistended, nontender, no guarding rebound or masses Data 10/10/23 04:38 10/10/23 04:38 A&P Assessment and plan (1) Abdominal pain: (2) Ileus: Plan I favor ileus over bowel obstruction, likely due to gastroenteritis. NG-tube removed Clear liquid diet advance as tolerated to full liquid diet Await return of stool studies No acute surgical intervention Medical management per hospitalist Attestations 2 Medical Necessity Statement*: Per primary Coding Level of Care Code 14405 Diagnoses Abdominal pain R10.9 Ileus K56.7
[2023-10-10] MEDS: acetaminophen 325 mg Tablet 650 MG PO (15:52)
--- NOTE | 2023-10-10 16:26 | P.PN_ITS ---
Subjective 2 Subjective: Patient was seen this morning, afebrile overnight, continues to have liquid bowel movements, roughly 400 to 500 cc, he tells me that he feels weak, no fevers overnight, no cough, no abdominal pain, Vitals/I&O/Wt Last Vital Signs Temp 99.3 F 10/10/23 05:13 Pulse 90 10/10/23 12:00 Resp 18 10/10/23 12:00 BP 162/92 10/10/23 12:00 Pulse Ox 97 10/10/23 12:00 O2 Del Method Nasal Cannula 10/10/23 08:00 O2 Flow Rate 2 10/10/23 08:00 10/10/23 10/10/23 10/10/23 06:59 14:59 22:59 Intake Total 170 / 2083.642 50 / 50 Output Total 1200 / 1200 Balance 170 / -2666.358 -1150 / -1150 Weight last 48 hrs Weight 137 kg Weight 139.706 kg Weight 139.706 kg Weight 145.15 kg Physical Exam 2 Const: COMMON NORMALS: no acute distress and patient oriented x3 Resp: COMMON NORMALS: normal respiratory effort, No retractions, No use of accessory muscles and clear to auscultation bilaterally AUSCULTATION: clear to auscultation bilaterally Cardio: COMMON NORMALS: regular rate, regular rhythm, S1 normal heart sound present and S2 normal heart sound present RATE: regular rate RHYTHM: r egular rhythm HEART SOUNDS: S1 normal heart sound present and S2 normal heart sound present GI: COMMON NORMALS: Normal to inspection, nondistended, normoactive bowel sounds present and non-tender OTHER: Colostomy bag in place Extremity: COMMON NORMALS: no pedal edema Neuro: COMMON NORMALS: patient oriented x3 Psych: COMMON NORMALS: mental status grossly normal Data 10/10/23 04:38 10/10/23 04:38 A&P Assessment and plan (1) Small bowel obstruction: (2) Renal hematoma: (3) Metastases to the liver: (4) Afib: Qualifiers: Atrial fibrillation type: longstanding persistent Qualified Code(s): I 48.11 - Longstanding persistent atrial fibrillation Plan 68-year-old male with history as outlined above presenting today with multiple episodes of nausea vomiting abdominal pain and poor colostomy output. CAT scan showing evidence of small bowel obstruction without discrete transition point noted. Small bowel obstruction versus ileus Clear liquid NG tube in place, currently to low intermittent suction On examination has liquid stool from colostomy bag has good bowel sounds General surgery consult As needed morphine for pain management As needed Zofran for nausea/vomiting management Check C. difficile, pending, started on p.o. vancomycin, currently noted to have liquid output at the stoma site. Patient states that the stoma started being functional after presentation to the emergency room. Incidentally noted to have subcapsular hematoma of the right kidney 11 x 13 cm. Unknown timeline. States he had lithotripsy 1-1/2 months ago following which she had intense pain lasting for about 2 to 3 weeks. Gastroenteritis, on Zosyn Suspect that may be related to recent lithotripsy as reported. No signs of active bleeding currently. Hemodynamically stable Hemoglobin at 17, trend every 8 hours. Any evidence of falling hemoglobin or hemodynamic instability, active bleeding would need to be considered and patient would likely need a higher level of care. Currently creatinine at 1.1, reviewing past numbers baseline appears to be between 1.3-1.5 over the last year. No obvious hematuria A-fib, currently with RVR at heart rate of 120. Heart rates improved, with p.o. metoprolol Holding off on initiating anticoagulation due to discovery of renal hematoma. Febrile episode, chest x-ray, respiratory viral panel, blood cultures, urine cultures, A sacral decubitus ulcer, on examination it is 1.1 cm, he healing quite well according to patient, DVT prophylaxis: SCDs only Full code Attestations 2 Medical Necessity Statement*: Patient requires hospitalization, for ileus, with liquid bowel movements, gastroenteritis on antibiotics, p.o. vancomycin for possible C. difficile, Diagnoses Small bowel obstruction K56.609 Renal hematoma S37.019A Metastases to the liver C78.7 Longstanding persistent atrial fibrillation I48.11 Atrial fibrillation type: longstanding persistent
[2023-10-10 17:49] LABS: Clostridium Difficile PCR DETECTED (NOT DETECTED)
[2023-10-10] MEDS: gabapentin 300 mg Capsule PO ×2 (18:01→20:51)
[2023-10-10] MEDS: trazodone 150 mg Tablet 300 MG PO (20:51)
[2023-10-10] MEDS: atorvastatin 40 mg Tablet 20 MG PO (20:51)
[2023-10-10] MEDS: sodium chloride 0.9% 1,000 ML 75 ML IV (20:53)
[2023-10-11] VITALS (9 sets, daily range): BP systolic 100–135; BP diastolic 64–75; PULSE 76–98; RESP 16–18; TEMP 36.3–37; O2SAT 91–97
[2023-10-11] MEDS: metoprolol tartrate 25 mg Tablet PO ×2 (04:26→16:48)
[2023-10-11] MEDS: vancomycin 125 mg Capsule PO (04:26)
[2023-10-11] MEDS: acetaminophen 325 mg Tablet 650 MG PO ×2 (06:07→16:48)
[2023-10-11 07:05] LABS: Basophils % 0.5 %; Eosinophils # 0.4 10^3/uL (0.0-0.8); Eosinophils % 5.3 %; Lymphocytes # 1.3 10^3/uL (0.8-4.8); Lymphocytes % 19.8 %; Mean Corpuscular HGB Conc 30.8 g/dL (30-55); Mean Corpuscular Hemoglobin 29.8 pg (27-33); Mean Corpuscular Volume 96.9 fl (82-101); Mean Platelet Volume 9.8 fL (7.4-10.4); Monocytes # 0.8 10^3/uL (0.2-0.9); Monocytes % 12.3 %; Neutrophils # 4.04 10^3/uL (1.8-7.7); Neutrophils % 61.6 %; Nucleated Red Blood Cells % 0 %; Platelet Count 178 10^3/cmm (157-399); Red Blood Count 5.16 10^6/uL (3.85-5.65); Red Cell Distribution Width 14.7 % (12.1-15.1); White Blood Count 6.56 10^3/uL (3.29-11.43)
[2023-10-11 07:39] LABS: Alanine Aminotransferase 19 U/L (0-41); Albumin Level 3.7 g/dL (3.5-5.2); Alkaline Phosphatase 72 U/L (40-130); Anion Gap 10.1 (5-19); Aspartate Amino Transferase 23 U/L (0-40); Blood Urea Nitrogen 20 mg/dL (8-23); C Reactive Protein 53.4 mg/L (0.0-4.9); Calcium 9.3 mg/dL (8.5-10.5); Carbon Dioxide 36 mmol/L (22-29); Chloride 97 mmol/L (98-107); Globulin 3.7 g/dL (1.3-4.6); Glomerular Filtration Rate 60.2 mL/min (90-130); Glucose 115 mg/dL (65-115); Magnesium 2.3 mg/dL (1.7-2.3); Osmolality Calculated 292 mOsm/kg (285-295); Phosphorus 4.1 mg/dL (2.5-4.5); Potassium 4.1 mmol/L (3.5-5.1); Sodium 139 mmol/L (136-145); Total Bilirubin 0.5 mg/dL (0.15-1.2); Total Protein 7.4 g/dL (6.6-8.7)
[2023-10-11 07:47] LABS: NT Pro B Type Natriuretic Pept 493 pg/mL (0-125); Procalcitonin 0.24 ng/mL (0-0.5)
[2023-10-11] MEDS: gabapentin 300 mg Capsule PO ×3 (10:21→21:17)
[2023-10-11] MEDS: allopurinol 300 mg Tablet PO (10:21)
[2023-10-11] MEDS: digoxin 125 mcg Tablet PO (10:21)
[2023-10-11] MEDS: vancomycin 125 mg Capsule 250 MG PO ×3 (11:25→21:17)
[2023-10-11] MEDS: sodium chloride 0.9% 1,000 ML 75 ML IV (11:25)
--- NOTE | 2023-10-11 12:59 | PC.SOCIAL ---
Pg 2 IMM Updated pt on IMM. No questions voiced. Provided pt a copy. Initialed, dated, & timed a copy & placed in chart.
--- NOTE | 2023-10-11 13:12 | P.PN_ITS ---
Subjective 2 Subjective: Patient was seen this morning, continues to have liquid output from his colostomy bag, no nausea, no vomiting, C. difficile was positive, toxin A and B is negative, with significant stool output likely C. difficile infection, his PCR was positive Vitals/I&O/Wt Last Vital Signs Temp 97.6 F 10/11/23 11:42 Pulse 98 10/11/23 11:42 Resp 18 10/11/23 11:42 BP 135/65 10/11/23 11:42 Pulse Ox 96 10/11/23 11:42 O2 Del Method Room Air 10/11/23 11:42 O2 Flow Rate 3 10/11/23 11:27 FiO2 3 10/10/23 21:07 10/10/23 10/11/23 10/11/23 22:59 06:59 14:59 Intake Total 290 / 1340 300 / 1640 1480 / 1480 Output Total 800 / 2350 675 / 3025 100 / 100 Balance -510 / -1010 -375 / -1385 1380 / 1380 Weight last 48 hrs Weight 62.737 kg Weight 137 kg Physical Exam 2 Const: COMMON NORMALS: no acute distress and patient oriented x3 Resp: COMMON NORMALS: normal respiratory effort, No retractions, No use of accessory muscles and clear to auscultation bilaterally AUSCULTATION: clear to auscultation bilaterally Cardio: COMMON NORMALS: regular rate, regular rhythm, S1 normal heart sound present and S2 normal heart sound present RATE: regular rate RHYTHM: r egular rhythm HEART SOUNDS: S1 normal heart sound present and S2 normal heart sound present GI: COMMON NORMALS: Normal to inspection, nondistended, normoactive bowel sounds present and non-tender Extremity: COMMON NORMALS: no pedal edema Neuro: COMMON NORMALS: patient oriented x3 Psych: COMMON NORMALS: mental status grossly normal Data 10/11/23 05:56 10/11/23 05:56 Micro: Microbiology 10/09/23 05:37 Clostridioides difficile Toxins A&B (PCR) - Final Stool 10/08/23 20:55 Blood Culture - Preliminary Blood 10/08/23 20:43 Blood Culture - Preliminary Blood A&P Assessment and plan (1) Small bowel obstruction: (2) Renal hematoma: (3) Metastases to the liver: (4) Afib: Qualifiers: Atrial fibrillation type: longstanding persistent Qualified Code(s): I 48.11 - Longstanding persistent atrial fibrillation (5) C. difficile colitis: Plan 68-year-old male with history as outlined above presenting today with multiple episodes of nausea vomiting abdominal pain and poor colostomy output. CAT scan showing evidence of small bowel obstruction without discrete transition point noted. Small bowel obstruction versus ileus Good bowel sounds, having liquid bowel movements advance to regular diet NG tube in place, out On examination has liquid stool from colostomy bag has good bowel sounds General surgery consult As needed morphine for pain management As needed Zofran for nausea/vomiting management Check C. difficile PCR positive, toxin AMB negative, continues to have large volume liquid bowel movements, likely C. difficile infection, started on p.o. vancomycin, dose increased to 250 4 times daily, currently noted to have liquid output at the stoma site. Incidentally noted to have subcapsular hematoma of the right kidney 11 x 13 cm. Unknown timeline. States he had lithotripsy 1-1/2 months ago following which she had intense pain lasting for about 2 to 3 weeks. Gastroenteritis, C. difficile colitis Suspect that may be related to recent lithotripsy as reported. No signs of active bleeding currently. Hemodynamically stable Hemoglobin stable Any evidence of falling hemoglobin or hemodynamic instability, active bleeding would need to be considered and patient would likely need a higher level of care. Currently creatinine at 1.2, reviewing past numbers baseline appears to be between 1.3-1.5 over the last year. No obvious hematuria A-fib, currently with RVR at heart rate of 120. Heart rates improved, with p.o. metoprolol Holding off on initiating anticoagulation due to discovery of renal hematoma. Febrile episode, chest x-ray, respiratory viral panel, blood cultures, urine cultures, A sacral decubitus ulcer, on examination it is 1.1 cm, he healing quite well according to patient, DVT prophylaxis: SCDs only, anticoagulation currently relatively contraindicated given subcapsular hematoma right kidney Full code Attestations 2 Medical Necessity Statement*: Patient requires hospitalization for C. difficile colitis, A-fib, heart rates in the 120s, monitor Diagnoses Small bowel obstruction K56.609 Renal hematoma S37.019A Metastases to the liver C78.7 Longstanding persistent atrial fibrillation I48.11 Atrial fibrillation type: longstanding persistent C. difficile colitis A04.72
[2023-10-11] MEDS: trazodone 150 mg Tablet 300 MG PO (21:17)
[2023-10-11] MEDS: atorvastatin 40 mg Tablet 20 MG PO (21:17)
[2023-10-12] VITALS (8 sets, daily range): BP systolic 109–130; BP diastolic 68–79; PULSE 78–93; RESP 16–18; TEMP 36.7–37; O2SAT 90–92; BMI 37.7
[2023-10-12] MEDS: sodium chloride 0.9% 1,000 ML 75 ML IV (00:44)
[2023-10-12] MEDS: vancomycin 125 mg Capsule 250 MG PO ×2 (03:55→09:59)
[2023-10-12] MEDS: metoprolol tartrate 25 mg Tablet PO (03:55)
[2023-10-12 05:33] LABS: Basophils % 0.6 %; Eosinophils # 0.3 10^3/uL (0.0-0.8); Eosinophils % 5.2 %; Lymphocytes # 1.8 10^3/uL (0.8-4.8); Lymphocytes % 27.5 %; Mean Corpuscular HGB Conc 30.7 g/dL (30-55); Mean Corpuscular Hemoglobin 29.6 pg (27-33); Mean Corpuscular Volume 96.6 fl (82-101); Mean Platelet Volume 9.6 fL (7.4-10.4); Monocytes # 0.8 10^3/uL (0.2-0.9); Monocytes % 11.8 %; Neutrophils # 3.53 10^3/uL (1.8-7.7); Neutrophils % 54.4 %; Nucleated Red Blood Cells % 0 %; Platelet Count 165 10^3/cmm (157-399); Red Blood Count 4.66 10^6/uL (3.85-5.65); Red Cell Distribution Width 14.5 % (12.1-15.1)
[2023-10-12 05:39] LABS: Alanine Aminotransferase 21 U/L (0-41); Albumin Level 3.5 g/dL (3.5-5.2); Alkaline Phosphatase 70 U/L (40-130); Anion Gap 11.5 (5-19); Aspartate Amino Transferase 20 U/L (0-40); Blood Urea Nitrogen 19 mg/dL (8-23); C Reactive Protein 21.2 mg/L (0.0-4.9); Calcium 8.8 mg/dL (8.5-10.5); Carbon Dioxide 33 mmol/L (22-29); Chloride 103 mmol/L (98-107); Globulin 2.6 g/dL (1.3-4.6); Glomerular Filtration Rate 66.6 mL/min (90-130); Glucose 119 mg/dL (65-115); Magnesium 2.1 mg/dL (1.7-2.3); Osmolality Calculated 299 mOsm/kg (285-295); Phosphorus 3.6 mg/dL (2.5-4.5); Potassium 4.5 mmol/L (3.5-5.1); Sodium 143 mmol/L (136-145); Total Bilirubin 0.3 mg/dL (0.15-1.2); Total Protein 6.1 g/dL (6.6-8.7)
[2023-10-12 05:48] LABS: NT Pro B Type Natriuretic Pept 366 pg/mL (0-125); Procalcitonin 0.16 ng/mL (0-0.5)
[2023-10-12] MEDS: gabapentin 300 mg Capsule PO (09:58)
[2023-10-12] MEDS: allopurinol 300 mg Tablet PO (09:58)
[2023-10-12] MEDS: digoxin 125 mcg Tablet PO (09:59)
--- NOTE | 2023-10-12 10:42 | P.DS_ITS ---
Discharge Providers Date of Admission: 10/09/23 00:01 Date of Discharge: October 12, 2023 Attending Provider at Admission: Bernadine Patel MD Attending Provider at Discharge: Blanco Carter MD Primary Care Provider: Al Álvarez MD Diagnoses at Discharge Discharge Diagnosis (1) Small bowel obstruction: Status: Acute (2) Renal hematoma: Status: Acute (3) Metastases to the liver: Status: Acute (4) Afib: Status: Acute Qualifiers: Atrial fibrillation type: longstanding persistent Qualified Code(s): I48.11 - Longstanding persistent atrial fibrillation (5) C. difficile colitis: Status: Acute Reason for Visit Reason for Visit: ABD PAIN Hospital Course Hospital Course yuval Voss is a 68 year old male with metastatic invasive adenocarcinoma involving the splenic flexure of the colon diagnosed in 2021 s/p partial colon resection and colostomy in September 2022 , complicated by intra abdominal abscess, bleeding at stoma site and C diff colitis. Known to have liver metastases which was treated by microwave ablation. Currently on expectant management. He presents to the emergency room today with chief complaints of abdominal pain, poor stoma output that started quite suddenly last evening. States that he had a shepherds pie for lunch, and thereafter by the evening he started to develop cramping abdominal pain located around the stoma site. He had multiple episodes of vomiting. No hematemesis. States he also had a fever. He noticed that his stoma was only putting out green liquid material without any formed stools. It was putting out less than usual amount of gas. CT of the abdomen and pelvis performed in the emergency room showed small bowel obstruction versus ileus with multiple air and fluid-filled loops of small bowel with distended stomach and retained secretions in the distal esophagus. Incidentally noted was a subcapsular hematoma along the right kidney measuring 11 x 6 x 13 cm. Patient has a history of lithotripsy that was performed by Dr. Sauceda in [place] 1-1/2 months ago. He states that following the procedure he had intense pain lasting for about 2 to 3 weeks, however there does not appear to have been any imaging from this time. He is hemodynamically stable today. Hemoglobin is at 17. Patient is not usually on any anticoagulants though he does have a history of atrial fibrillation. It appears anticoagulation was discontinued after the bleeding complications in September 2022. Patient was admitted to [facility] for acute diarrhea, secondary to C. difficile colitis, treated with p.o. vancomycin, continues to have liquid bowel movements from his colostomy, however he is adamant about going home, advised to continue p.o. vancomycin for the next 10 days, hydrate well, if any abdominal pain, fevers please come back to emergency room On admission, there was concerns for small bowel obstruction, and or ileus, abdominal exam was benign, he was having liquid bowel movements, seen by surgery, had NG tube placed, which was eventually removed, diet was advanced, continues to have liquidy bowel movements from his colostomy On admission patient was found to have a right sup capsular hematoma of the right kidney measuring 11 x 13 cm, unknown timeline, did have a lithotripsy about a month ago, with pain in the right flank but for the last 2 to 3 weeks, hold anticoagulation on discharge, for at least 2 to 3 weeks, decision if and when to resume anticoagulation will be shared decision-making between patient and cardiology and his primary care For his atrial fibrillation, I added on metoprolol 25 mg twice daily, in terms of anticoagulation, we had extensive discussion with him about his risk of strokes, given his right subcapsular hematoma of right kidney, he has a high risk of bleeding, if he were to resume anticoagulation, discussed risk and benefits, he voiced understanding, all questions answered, shared decision making, agreed to hold anticoagulation for now, for at least 2 to 3 weeks, decision if and when to resume anticoagulation will be 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, would recommend a repeat CT or ultrasound of right kidney within 2 to 3 weeks Physical Exam Const: COMMON NORMALS: no acute distress and patient oriented x3 Resp: COMMON NORMALS: normal respiratory effort, No retractions, No use of accessory muscles and clear to auscultation bilaterally AUSCULTATION: clear to auscultation bilaterally Cardio: COMMON NORMALS: regular rate, regular rhythm, S1 normal heart sound present and S2 normal heart sound present RATE: regular rate RHYTHM: regular rhythm HEART SOUNDS: S1 normal heart sound present and S2 normal heart sound present GI: COMMON NORMALS: Normal to inspection, nondistended, normoactive bowel sounds present and non-tender Extremity: COMMON NORMALS: no pedal edema Neuro: COMMON NORMALS: patient oriented x3 Psych: COMMON NORMALS: mental status grossly normal Discharge Data Studies Completed and Pending Completed Studies During Hospitalization Category Date Time Status CT abdomen pelvis w con* [id number] Stat Cat Scan 10/08/23 20:26 Completed XR abdomen 1V* [id number] Stat Exams 10/09/23 00:01 Completed XR chest 1V portable [id number] Routine Exams 10/09/23 08:36 Completed US venous duplex lower extremity bilat [CV venous Ultrasound 10/09/23 12:23 [place] [id number]] Routine Pending at discharge Category Date Time Status Blood Cultures ([facility]) Routine Lab 10/08/23 20:43 Results Blood Cultures ([facility]) Routine Lab 10/08/23 20:55 Results Miscellaneous Test Routine Lab 10/09/23 05:53 Received OVA and Parasites, Conc and PE Routine Lab 10/09/23 05:53 Received Rota Virus AG Stool Routine Lab 10/09/23 05:53 Received Stool Culture - Enteric [Salmonella / Shigella / Campy] Lab 10/09/23 05:53 Received Routine Radiology Impressions Abdomen/Pelvis CT 10/08/23 20:26 IMPRESSION: 1. Small bowel obstruction versus ileus with multiple air and fluid-filled loops of dilated small bowel with a distended stomach and retained secretions in the distal esophagus. The transition point is not identified. 2. There is a subcapsular hematoma along the posterolateral aspect of the right kidney measuring at least 11.1 x 6.7 x 13.6 cm. 3. Decreased size of the heterogeneously attenuating hypodense lesion in the right lobe of the liver measuring 4.9 x 3.8 cm, previously 6.1 x 4.7 cm. COMMENTS: Consistent with the [employer]'s Incidental Findings Committee white paper (J Am Dg Radiol 2018): Any incidental renal lesion less than 1 cm or classified as too small to characterize, or any incidental cystic renal lesion characterized as simple-appearing, is likely benign. No follow-up imaging is recommended for these lesions per consensus recommendations based on imaging criteria. ADDENDUM: 10/08/23 2238 THIS REPORT CONTAINS FINDINGS THAT MAY BE CRITICAL TO PATIENT CARE. The findings were verbally communicated via telephone conference with RAJAT Hitchcock at 10:37 PM TATTOO TECHNICIAN on 10/08/2023. The findings were acknowledged and understood. Abdomen X-Ray 10/09/23 00:01 IMPRESSION: The NG tube is positioned with its tip in the proximal stomach. Laboratory Results WBC 6.50 10^3/uL (3.29-11.43) 10/12/23 04:50 RBC 4.66 10^6/uL (3.85-5.65) 10/12/23 04:50 Hgb 13.80 g/dL (11.27-16.99) 10/12/23 04:50 Hct 45.0 % (37-53) 10/12/23 04:50 MCV 96.6 fl (82-101) 10/12/23 04:50 MCH 29.6 pg (27-33) 10/12/23 04:50 MCHC 30.7 g/dL (30-55) 10/12/23 04:50 RDW 14.5 % (12.1-15.1) 10/12/23 04:50 Plt Count 165 10^3/cmm (157-399) 10/12/23 04:50 MPV 9.6 fL (7.4-10.4) 10/12/23 04:50 Neut % (Auto) 54.4 % 10/12/23 04:50 Lymph % (Auto) 27.5 % 10/12/23 04:50 [place] % (Auto) 11.8 % 10/12/23 04:50 Eos % (Auto) 5.2 % 10/12/23 04:50 Baso % (Auto) 0.6 % 10/12/23 04:50 Neut # (Auto) 3.53 10^3/uL (1.8-7.7) 10/12/23 04:50 Lymph # (Auto) 1.8 10^3/uL (0.8-4.8) 10/12/23 04:50 [place] # (Auto) 0.8 10^3/uL (0.2-0.9) 10/12/23 04:50 Eos # (Auto) 0.3 10^3/uL (0.0-0.8) 10/12/23 04:50 Baso # (Auto) 0.0 10^3/uL (0.0-0.1) 10/12/23 04:50 Nucleated RBC % (auto) 0 % 10/12/23 04:50 Nucleated RBCs # 0.0 /100WBC 10/12/23 04:50 ESR 47 mm/hr (0-10) H 10/09/23 03:47 PT 12.80 SECONDS (12.1-14.9) 10/08/23 20:00 INR 0.94 (0.8-1.2) 10/08/23 20:00 APTT 27.7 SECONDS (23.9-36.7) 10/08/23 20:00 Sodium 143 mmol/L (136-145) 10/12/23 04:50 Potassium 4.5 mmol/L (3.5-5.1) 10/12/23 04:50 Chloride 103 mmol/L (98-107) 10/12/23 04:50 Carbon Dioxide 33 mmol/L (22-29) H 10/12/23 04:50 Anion Gap 11.5 (5-19) 10/12/23 04:50 BUN 19 mg/dL (8-23) 10/12/23 04:50 Creatinine 1.1 mg/dL (0.7-1.2) 10/12/23 04:50 GFR Calculation 66.6 mL/min (90-130) L 10/12/23 04:50 Glucose 119 mg/dL (65-115) H 10/12/23 04:50 Calculated Osmolality 299 mOsm/kg (285-295) H 10/12/23 04:50 Lactic Acid 1.0 mmol/L (0.5-2.2) 10/10/23 04:38 Lactic Acid (Sepsis) 3.0 mmol/L (0.5-2.2) H 10/08/23 22:35 Calcium 8.8 mg/dL (8.5-10.5) 10/12/23 04:50 Phosphorus 3.6 mg/dL (2.5-4.5) 10/12/23 04:50 Magnesium 2.1 mg/dL (1.7-2.3) 10/12/23 04:50 Total Bilirubin 0.3 mg/dL (0.15-1.2) 10/12/23 04:50 AST 20 U/L (0-40) 10/12/23 04:50 ALT 21 U/L (0-41) 10/12/23 04:50 Alkaline Phosphatase 70 U/L (40-130) 10/12/23 04:50 Troponin T Baseline 37 ng/L (0-15) H 10/09/23 12:56 Troponin T 120 Minute 35.79 ng/L (0-15) H 10/09/23 15:13 Delta Troponin T -1.21 ABS# (0-10) L 10/09/23 15:13 Troponin T Hi Sens 6Hr 35.46 ng/L (0-15) H 10/09/23 19:12 Troponin T Hi Sens 6Hr Delta -1.54 ng/L (0-12) L 10/09/23 19:12 C-Reactive Protein 21.2 mg/L (0.0-4.9) H 10/12/23 04:50 NT-Pro-B Natriuret Pep 366 pg/mL (0-125) H 10/12/23 04:50 Total Protein 6.1 g/dL (6.6-8.7) L 10/12/23 04:50 Albumin 3.5 g/dL (3.5-5.2) 10/12/23 04:50 Globulin 2.6 g/dL (1.3-4.6) 10/12/23 04:50 Lipase 72 U/L (13-60) H 10/08/23 20:00 Procalcitonin 0.16 ng/mL (0-0.5) 10/12/23 04:50 Urine Color Dark yellow (Yellow) 10/09/23 05:37 Urine Appearance Clear (CLEAR) 10/09/23 05:37 Urine pH 5 (5-7) 10/09/23 05:37 Ur Specific [place] 1.010 (1.005-1.030) 10/09/23 05:37 Urine Protein 1+ (Negative) H 10/09/23 05:37 Urine Glucose (UA) Norm (Normal) 10/09/23 05:37 Urine Ketones Negative (Negative) 10/09/23 05:37 Urine Blood Neg (Negative) 10/09/23 05:37 Urine Nitrate Negative (Negative) 10/09/23 05:37 Urine Bilirubin 1+ (Negative) H 10/09/23 05:37 Urine Urobilinogen 1 mg/dL (Negative) H 10/09/23 05:37 Ur Leukocyte Esterase Negative (Negative) 10/09/23 05:37 Urine RBC None /hpf (0-2) 10/09/23 05:37 Urine WBC None /hpf (0-5) 10/09/23 05:37 Ur Squamous Epith Cells None /hpf (0-5) 10/09/23 05:37 Amorphous Sediment 1+ /hpf 10/09/23 05:37 Urine Bacteria Trace /hpf (NONE) 10/09/23 05:37 Stl C. difficile Result Cancelled 10/09/23 05:37 Digoxin 0.4 ng/mL (0.6-1.2) L 10/08/23 20:00 Adenovirus (PCR) Not detected (NOT DETECT) 10/09/23 10:15 C. pneumoniae DNA (PCR) Not detected (NOT DETECT) 10/09/23 10:15 C. difficile Tox (PCR) Cancelled 10/09/23 05:37 C. difficile Tox (PCR) Detected (NOT DETECTED) A 10/09/23 05:37 Coronavirus 229E (PCR) Not detected (NOT DETECT) 10/09/23 10:15 Human Metapneumovir PCR Not detected (NOT DETECT) 10/09/23 10:15 Influenza A (H1) PCR Not detected (NOT DETECT) 10/09/23 10:15 Influ A (H1/09) PCR Not detected (NOT DETECT) 10/09/23 10:15 Influenza A (H3) PCR Not detected (NOT DETECT) 10/09/23 10:15 Influenza Type A (PCR) Not detected (NOT DETECT) 10/09/23 10:15 Influenza Type B (PCR) Not detected (NOT DETECT) 10/09/23 10:15 M. pneumoniae (PCR) Not detected (NOT DETECT) 10/09/23 10:15 Parainfluenza 1 (PCR) Not detected (NOT DETECT) 10/09/23 10:15 Parainfluenza 2 (PCR) Not detected (NOT DETECT) 10/09/23 10:15 Parainfluenza 3 (PCR) Not detected (NOT DETECT) 10/09/23 10:15 Parainfluenza 4 (PCR) Not detected (NOT DETECT) 10/09/23 10:15 RSV Type A (PCR) Not detected (NOT DETECT) 10/09/23 10:15 RSV Type B (PCR) Not detected (NOT DETECT) 10/09/23 10:15 Entero/Rhino (PCR) Not detected (NOT DETECT) 10/09/23 10:15 SARS-CoV-2 (PCR) Not detected (NOT DETECT) 10/09/23 10:15 Vitals Last Vital Signs Temp 98.3 F 10/12/23 08:00 Pulse 91 10/12/23 09:59 Resp 18 10/12/23 09:39 BP 130/79 10/12/23 08:00 Pulse Ox 91 10/12/23 09:39 O2 Del Method Room Air 10/12/23 09:39 O2 Flow Rate 3 10/11/23 20:00 FiO2 3 10/10/23 21:07 Discharge Plan Discharge Patient Disposition: Home Condition: Stable Prescriptions: New metoprolol tartrate 25 mg Tablet 25 mg PO Q12H 30 Days Qty: 60 0RF vancomycin 125 mg Capsule 125 mg PO Q6H 10 Days Qty: 40 0RF Continued allopurinol 300 mg tablet 300 mg PO DAILY multivitamin Tablet 6 tab PO DAILY@2200 lycopene 10 mg capsule 10 mg PO DAILY Rx Instructions: administer after a meal resveratrol 250 mg capsule 250 mg PO QPM saw palmetto 500 mg capsule 500 mg PO DAILY Rx Instructions: give with food (meal/snack) lovastatin 40 mg tablet 40 mg PO BEDTIME testosterone cypionate 200 mg/mL oil 120 mg IM Q7D Qty: 10 5RF Rx Instructions: ON TUESDAYS digoxin 125 mcg (0.125 mg) tablet 125 mcg PO DAILY Qty: 90 3RF sennosides [senna] 8.6 mg Tablet 8.6 mg PO DAILY PRN (Reason: Constipation) loratadine [Claritin] 10 mg tablet 10 mg PO DAILY tadalafil [Cialis] 20 mg tablet 20 mg PO DAILY PRN (Reason: sexual activity) Rx Instructions: administer approximately 30min before sexual activity; NO NITROGLYCERIN! acetaminophen 500 mg Tablet 500 mg PO Q6H PRN (Reason: Pain) trazodone 150 mg tablet 300 mg PO BEDTIME cholecalciferol (vitamin D3) [Vitamin D3] 10 mcg (400 unit) Capsule 10 mcg PO DAILY melatonin 5 mg Tablet 10 mg PO BEDTIME ketoconazole 2 % shampoo 1 applic TOPICAL DAILY PRN (Reason: Rash) gabapentin 300 mg capsule 300 mg PO TID Held potassium chloride 10 mEq tablet extended release 10 meq PO DAILY Qty: 90 2RF Hold Instructions: Resume on 10/14/23. furosemide 20 mg tablet 20 mg PO DAILY Qty: 90 2RF Hold Instructions: Resume on 10/14/23. Discharge Orders: Discharge Order (Routine); Ordered 10/12/23 Ordered By: Blanco Carter Referrals: Al Álvarez MD [Primary Care Provider] - Raiza Orourke MD [Physician] - 3 weeks (afib) Discharge Diet: Cardiac Discharge Activity: Resume usual activity Patient Instructions: C. Diff (Clostridioides Difficile) Infection (DC), Opioid Safety Activity Restrictions/Additional Instructions: - Please hydrate well ? For your atrial fibrillation, anticoagulation currently on hold given renal hematoma -se follow-up with cardiology in 3 to 4 weeks for decision when to resume anticoagulation Discharge Attestations Time Spent in Discharge Care*: greater than 30 min Quality Metrics Clinical Quality Measures [ No reported AMI, CVA or VTE this stay] Coding Level of Care Code 99337 Total time (in minutes) for Discharge: 45 Diagnoses Small bowel obstruction K56.609 Renal hematoma S37.019A Metastases to the liver C78.7 Longstanding persistent atrial fibrillation I48.11 Atrial fibrillation type: longstanding persistent C. difficile colitis A04.72
== END 2023-10-12 13:45 | disposition home or self-care (01) | DRG 372 ==
LOC: ER 10-09 00:27 → ICU 10-09 00:45 → MEDSURG 10-10 18:49
PROVIDERS: Surgery; Admitting Provider Student in an Organized Health Care Education/Training Program; Emergency Provider Internal Medicine; PCP Family Medicine; Visit Provider Family Medicine
DX: A04.72 Enterocolitis due to Clostridium difficile, not specified as recurrent (principal); F84.5 Asperger's syndrome; I48.11 Longstanding persistent atrial fibrillation; K56.7 Ileus, unspecified; S37.011A Minor contusion of right kidney, initial encounter; M19.90 Unspecified osteoarthritis, unspecified site; M10.9 Gout, unspecified; E78.5 Hyperlipidemia, unspecified; M47.816 Spondylosis without myelopathy or radiculopathy, lumbar region; G47.33 Obstructive sleep apnea (adult) (pediatric); G89.29 Other chronic pain; M54.50 Low back pain, unspecified; I10 Essential (primary) hypertension; J45.909 Unspecified asthma, uncomplicated; L89.152 Pressure ulcer of sacral region, stage 2; X58.XXXA Exposure to other specified factors, initial encounter; Z85.038 Personal history of other malignant neoplasm of large intestine; Z11.52 Encounter for screening for COVID-19; Z90.49 Acquired absence of other specified parts of digestive tract; Z93.3 Colostomy status; Z86.16 Personal history of COVID-19; Z98.1 Arthrodesis status; Z87.891 Personal history of nicotine dependence
CPT/HCPCS: 36415; 71045; 74018; 74177; 80048; 80053; 80162; 81001; 83605; 83690; 83735; 83880; 84100; 84145; 84484; 85014; 85018; 85025; 85610; 85651; 85730; 86140; 87040; 87045; 87177; 87209; 87324; 87425; 87427; 87449; 87486; 87493; 87581; 87633; 87798; 93005; 93970; 96365; 96375; 96376; 99285; J1160; J1170; J1815; J2405; J2543; J3490; J7030; J7120; Q9967

== ENCOUNTER 2023-10-23 14:21 | Oncology outpatient (recurring) (ONCR) | payer MEDICARE, SELFPAY ==
[2023-10-23 14:40] VITALS: BP 107/62; PULSE 114; RESP 18; TEMP 36.4; O2SAT 94
[2023-10-23 15:22] LABS: Carcinoembryonic Antigen 50.1 ng/mL (0.0-4.7)
== END 2023-10-30 23:59 | disposition home or self-care (01) ==
LOC: ONCMED 14:21
PROVIDERS: PCP Family Medicine; Visit Provider Internal Medicine Medical Oncology
DX: Z85.038 Personal history of other malignant neoplasm of large intestine (principal)
CPT/HCPCS: 36415; 82378

== ENCOUNTER → 2023-10-24 09:58 | Outpatient (BNVA) | payer MEDICARE, SELFPAY | PROVIDERS: PCP Family Medicine; Visit Provider Internal Medicine Cardiovascular Disease | DX: I48.11 Longstanding persistent atrial fibrillation (principal); I10 Essential (primary) hypertension; E78.5 Hyperlipidemia, unspecified; D68.59 Other primary thrombophilia; R79.1 Abnormal coagulation profile; K94.00 Colostomy complication, unspecified | CPT/HCPCS: 99214 ==

== ENCOUNTER 2023-11-27 14:16 | Oncology outpatient (recurring) (ONCR) | payer MEDICARE, SELFPAY ==
[2023-11-27 15:00] LABS: Basophils # 0.1 10^3/uL (0.0-0.1); Basophils % 0.8 %; Eosinophils # 0.2 10^3/uL (0.0-0.8); Eosinophils % 3.7 %; Hematocrit 51.1 % (37-53); Lymphocytes # 1.5 10^3/uL (0.8-4.8); Lymphocytes % 23.5 %; Mean Corpuscular HGB Conc 32.1 g/dL (30-55); Mean Corpuscular Hemoglobin 30.5 pg (27-33); Mean Corpuscular Volume 95.2 fl (82-101); Mean Platelet Volume 9.8 fL (7.4-10.4); Monocytes # 0.6 10^3/uL (0.2-0.9); Neutrophils # 4.08 10^3/uL (1.8-7.7); Neutrophils % 62.4 %; Nucleated Red Blood Cells % 0 %; Platelet Count 213 10^3/cmm (157-399); Red Blood Count 5.37 10^6/uL (3.85-5.65); Red Cell Distribution Width 15.6 % (12.1-15.1); White Blood Count 6.54 10^3/uL (3.29-11.43)
[2023-11-27 15:41] LABS: Carcinoembryonic Antigen 74.1 ng/mL (0.0-4.7)
[2023-11-27 15:52] LABS: Alanine Aminotransferase 21 U/L (0-41); Alkaline Phosphatase 78 U/L (40-130); Aspartate Amino Transferase 20 U/L (0-40); Blood Urea Nitrogen 12 mg/dL (8-23); Calcium 9.2 mg/dL (8.5-10.5); Carbon Dioxide 24 mmol/L (22-29); Chloride 101 mmol/L (98-107); Globulin 3.4 g/dL (1.3-4.6); Glomerular Filtration Rate 83.9 mL/min (90-130); Glucose 185 mg/dL (65-115); Osmolality Calculated 289 mOsm/kg (285-295); Sodium 137 mmol/L (136-145); Total Bilirubin 0.3 mg/dL (0.15-1.2); Total Protein 7.4 g/dL (6.6-8.7)
[2023-11-27 15:56] LABS: Anion Gap 16.3 (5-19); Creatinine Clr Calc Pharmacy 121.8484; Potassium 4.3 mmol/L (3.5-5.1)
== END 2023-11-28 23:59 | disposition home or self-care (01) ==
LOC: ONCMED 14:17
PROVIDERS: PCP Family Medicine; Visit Provider Internal Medicine Medical Oncology
DX: C18.5 Malignant neoplasm of splenic flexure; Z90.49 Acquired absence of other specified parts of digestive tract; Z93.1 Gastrostomy status; R16.0 Hepatomegaly, not elsewhere classified; Z79.899 Other long term (current) drug therapy
CPT/HCPCS: 36415; 80053; 82378; 85025; 99214

== ENCOUNTER 2023-12-10 12:18 | Outpatient (CLI) | payer MEDICARE, SELFPAY ==
--- NOTE | 2023-12-10 12:30 | PETR_ITS ---
PROCEDURE INFORMATION: Exam: PET/CT Skull Base to Mid-thigh Exam date and time: 12/10/2023 1:14 PM Age: 68 years old Clinical indication: Condition or disease; Primary cancer: Malignant neoplasm of splenic flexure LABS AND CLINICAL REPORTS: Glucose: 95 mg/dl Treatment strategy for malignancy (PET staging): Restaging (PS) TECHNIQUE: Imaging protocol: Following at least four-hour fasting and following the injection of radiopharmaceutical, low dose CT images were obtained. Then, PET images were obtained. Attenuation corrected images were constructed using the CT scan. Fused images of PET and CT were reviewed. The standardized uptake values (SUV) reported below are maximum values within a region of interest, expressed in gm/ml. Exam includes orbital meatal line to mid-thigh. Radiopharmaceutical: 13.4 mCi F-18 FDG (Fluorodeoxyglucose), IV. Time of imaging post radiopharmaceutical administration: 1 hour Injection site: Right hand COMPARISON: CT abdomen and pelvis 10/08/2023, CTA chest 04/24/2023, PT PET skulltothi INITIAL [id number] 03/02/2023 10:02 AM FINDINGS: Limitations: The examination is slightly technically suboptimal secondary to the scan to injection time outside of recommended parameters (45-75 minutes). Reported scan to injection time of 44 minutes. Injection to scan times outside of recommended parameters can result in decreased PET sensitivity and limit the utility of comparison of SUV values to prior or subsequent exams. Brain: Visualized brain has normal physiologic uptake. Pharynx: No abnormal uptake. Larynx: No abnormal uptake. Thyroid: Enlargement of the left thyroid lobe is noted containing hypodense nodularity without elevated uptake compatible with a benign finding. Lungs, pleura and trachea: No abnormal uptake. Heart: Normal physiologic uptake. Mediastinal space: No abnormal uptake. Liver: Abnormal uptake in the inferior right liver lobe is noted, SUV max 13.4 (previously 20.8) on series 12, image 155. Subtle corresponding hypodensity is noted on series 3, image 155 in this location however the margins of this lesion are not well assessed secondary to artifact and lack of intravenous contrast. Gallbladder and bile ducts: No abnormal uptake. Pancreas: No abnormal uptake. Spleen: No abnormal uptake. Adrenal glands: No abnormal uptake. Kidneys and ureters: Normal physiologic uptake. No abnormal uptake is identified in a region of soft tissue density posterior to the right kidney corresponding to blood products on the prior CT of 10/08/2023 currently measuring 4.8 x 7.6 cm on series 3, image 180, slightly decreased in size. Similar simple appearing non radiotracer avid low-density cysts arising from the left kidney. Stomach and bowel: Focal elevated uptake in the sigmoid colon is noted where there is a soft tissue density correlating lesion on the CT images measuring approximately 2.3 x 1.8 x 1.8 cm on series 3, image 214, SUV max 9.6. This uptake is distal to a surgical anastomotic staple line. Vasculature: No abnormal uptake. Lymph nodes: No abnormal uptake. No lymphadenopathy in the head, neck, chest, abdomen, pelvis, and extremities. Bones/joints: No abnormal uptake in the visualized axial and appendicular skeleton. Degenerative changes in the spine are noted. Postoperative changes in the thoracic and lumbar spine are present. There is a moderate reversed S shaped thoracolumbar spine scoliotic curvature. Soft tissues: An ovoid region of soft tissue density in the subcutaneous fat extending to the region of the medial left gluteus twin muscle is noted measuring 5.1 x 4.2 cm in the axial plane on series 3, image 224, SUV max 1.8 (previously 11.5). This appears morphologically similar compared with 10/08/2023 and is decreased in size and more homogeneous in appearance compared to the region of a decubitus ulcer noted on the prior PET-CT. METRICS: Mediastinal blood pool: SUV max 3.5 [facility] [id number] IMPRESSION: 1. Persistent but decreased uptake within a metastatic lesion within the right lobe of the liver consistent with partial response to therapy. 2. There is a new focus of elevated uptake (SUV max 9.6) in the sigmoid colon corresponding to an apparent soft tissue density lesion concerning for malignancy. An inflammatory etiology cannot be entirely excluded. 3. Mild residual uptake in a region of soft tissue density in the subcutaneous fat in the medial left gluteal region likely related to inflammatory changes related to healing decubitus ulcer. 4. Similar but decreasing collection of known blood products posterior to the right kidney without elevated uptake. 5. Additional nonurgent findings as detailed above.
== END 2023-12-10 12:19 | disposition home or self-care (01) ==
LOC: RAD 12:19
PROVIDERS: PCP Family Medicine; Visit Provider Internal Medicine Medical Oncology
DX: C18.5 Malignant neoplasm of splenic flexure (principal); C78.7 Secondary malignant neoplasm of liver and intrahepatic bile duct; R93.3 Abnormal findings on diagnostic imaging of other parts of digestive tract
CPT/HCPCS: 78815; A9552

== ENCOUNTER 2023-12-20 14:26 | Outpatient (CLI) | payer MEDICARE, SELFPAY ==
--- NOTE | 2023-12-20 14:35 | US_ITS ---
WS: [id number] ULTRASOUND THYROID TECHNIQUE: Ultrasound of the thyroid. CLINICAL INFORMATION: E04.1 - Nontoxic single thyroid nodule COMPARISON: Ultrasound thyroid 02/02/2021 FINDINGS: Thyroid: Right and left thyroid lobes are normal in size and echotexture. Right thyroid lobe: 4.2 cm x 2.2 cm x 2.3 cm Cystic RIGHT thyroid nodule with internal debris appears unchanged compared to previous measuring 1.1 x 0.8 cm. Isoechoic RIGHT thyroid nodule measuring 6 x 7 mm is unchanged. Left thyroid lobe: 6.0 cm x 4.7 cm x 3.8 cm. Large complex LEFT thyroid nodule previously biopsied measuring 3.2 x 2.3 cm similar to previous. Isthmus: 0.4 mm. Cervical lymphadenopathy: None. IMPRESSION: 1. No significant changes compared to the prior examination. 2. Cystic RIGHT thyroid nodule with a small amount internal debris appears unchanged measuring 1.1 x 0.8 cm 3. Small isoechoic RIGHT thyroid nodule measuring 6 x 7 mm is unchanged. 4. Complex LEFT thyroid nodule previously biopsied measuring 3.2 x 2.3 cm is stable.
== END 2023-12-20 14:27 | disposition home or self-care (01) ==
LOC: RAD 14:26
PROVIDERS: PCP Family Medicine; Visit Provider Internal Medicine
DX: E04.1 Nontoxic single thyroid nodule (principal)
CPT/HCPCS: 76536

== ENCOUNTER → 2023-12-26 15:10 | Outpatient (BNVA) | payer MEDICARE, SELFPAY | PROVIDERS: PCP Family Medicine; Referring Provider Internal Medicine Medical Oncology; Visit Provider Surgery | DX: Z85.038 Personal history of other malignant neoplasm of large intestine; C78.7 Secondary malignant neoplasm of liver and intrahepatic bile duct | CPT/HCPCS: 99214 ==

== ENCOUNTER 2023-12-31 14:29 | Oncology outpatient (recurring) (ONCR) | payer MEDICARE, SELFPAY ==
[2023-12-31 14:57] LABS: Basophils % 0.4 %; Eosinophils # 0.2 10^3/uL (0.0-0.8); Eosinophils % 2.6 %; Hematocrit 54.2 % (37-53); Lymphocytes # 1.5 10^3/uL (0.8-4.8); Lymphocytes % 20.6 %; Mean Corpuscular HGB Conc 31.5 g/dL (30-55); Mean Corpuscular Hemoglobin 30.3 pg (27-33); Mean Corpuscular Volume 96.1 fl (82-101); Mean Platelet Volume 9.6 fL (7.4-10.4); Monocytes # 0.7 10^3/uL (0.2-0.9); Monocytes % 9.5 %; Neutrophils # 4.81 10^3/uL (1.8-7.7); Neutrophils % 66.2 %; Nucleated Red Blood Cells % 0 %; Platelet Count 200 10^3/cmm (157-399); Red Blood Count 5.64 10^6/uL (3.85-5.65); White Blood Count 7.27 10^3/uL (3.29-11.43)
[2023-12-31 15:20] LABS: Carcinoembryonic Antigen 129.2 ng/mL (0.0-4.7)
[2023-12-31 15:31] LABS: Alanine Aminotransferase 20 U/L (0-41); Alkaline Phosphatase 66 U/L (40-130); Blood Urea Nitrogen 11 mg/dL (8-23); Calcium 8.8 mg/dL (8.5-10.5); Carbon Dioxide 24 mmol/L (22-29); Chloride 104 mmol/L (98-107); Globulin 3.2 g/dL (1.3-4.6); Glomerular Filtration Rate 83.9 mL/min (90-130); Glucose 132 mg/dL (65-115); Osmolality Calculated 287 mOsm/kg (285-295); Sodium 138 mmol/L (136-145); Total Bilirubin 0.3 mg/dL (0.15-1.2); Total Protein 7.2 g/dL (6.6-8.7)
[2023-12-31 15:41] LABS: Anion Gap 14.7 (5-19); Aspartate Amino Transferase 24 U/L (0-40); Potassium 4.7 mmol/L (3.5-5.1)
== END 2024-01-28 23:59 | disposition home or self-care (01) ==
PROVIDERS: PCP Family Medicine; Visit Provider Internal Medicine Medical Oncology
DX: Z85.038 Personal history of other malignant neoplasm of large intestine (principal); D75.1 Secondary polycythemia; Z79.899 Other long term (current) drug therapy
CPT/HCPCS: 36415; 80053; 82378; 85025; 99214

== ENCOUNTER 2024-01-09 07:57 | Day surgery (SDC) | payer MEDICARE, SELFPAY ==
[2024-01-09 08:23] VITALS: BP 126/87; PULSE 115; RESP 18; TEMP 36.7; O2SAT 94; BMI 38.9
[2024-01-09] MEDS: sodium chloride 0.9% 1,000 ML 30 ML IV (08:31)
--- NOTE | 2024-01-09 08:52 | ANES.PREANE2 ---
Pre-Anesthetic Assessment Height/Weight: Height 1.93 m Weight 145.15 kg Temp Pulse Resp BP Pulse Ox O2 Del Method 98.0 F 115 H 18 126/87 94 Room Air 01/09/24 08:23 01/09/24 08:23 01/09/24 08:23 01/09/24 08:23 01/09/24 08:23 01/09/24 08:23 Preop Diagnosis: screening Operation Date: 01/09/24 09:00 Proposed Procedures p Colonoscopy(Not Applicable) - Isaias Soares DO Familial anesthetic complications: none Was Beta Larissa taken within 24 hours: Yes Was Clonidine taken within 24 hours: N/A Last intake: Intake Last Liquid Date 01/08/24 Last Liquid Time 18:30 Last Solid Date 01/07/24 Last Solid Time 19:00 Social No alcohol and No tobacco Exam alert, oriented x 3, clear to auscultation bilaterally and regular rate & rhythm Airway Submandibular: within normal limits Cervical ROM: within normal limits Mallampati: Class I Dentition: false Pulmonary Asthma and Sleep Apnea has inhaler only uses as needed CV/HEM Atrial Fibrillation and Hypertension None reported Hepatic None reported GI Gastroesophageal Reflux Disease Colostomy Metabolic Hyperlipidemia, Morbid Obesity and Thyroid Disease (tumors ) Musc/skel Lower Back Pain, Osteoarthritis/DJD and Weakness (Lower Extremities) Neuropsych None reported Anesthetic Plan ASA status: 3 Anesthesia: MAC Risk of > 500 ml blood loss (7ml/kg in children): No Medications/Allergies Home Medications Medication Instructions Recorded Confirmed Last Taken Type allopurinol 300 mg tablet 300 mg PO DAILY 10/15/19 01/07/24 01/08/24 History multivitamin 6 tab PO DAILY@2200 10/15/19 01/07/24 01/08/24 History sennosides 8.6 mg tablet (senna) 8.6 mg PO DAILY PRN Constipation 10/27/19 01/07/24 10/07/22 History lycopene 10 mg capsule 10 mg PO DAILY 11/15/20 01/07/24 01/08/24 History resveratrol 250 mg capsule 250 mg PO QPM 11/15/20 01/07/24 01/08/24 History saw palmetto 500 mg capsule 500 mg PO DAILY 11/15/20 01/07/24 01/08/24 History loratadine 10 mg tablet (Claritin) 10 mg PO DAILY 11/21/21 01/07/24 01/08/24 History ketoconazole 2 % shampoo 1 applic topical DAILY PRN Rash 07/18/22 01/09/24 01/08/24 History tadalafil 20 mg tablet (Cialis) 20 mg PO DAILY PRN sexual activity 09/18/22 01/07/24 Unknown History acetaminophen 500 mg tablet 500 mg PO Q6H PRN Pain 10/09/22 01/07/24 01/09/24 History cholecalciferol (vitamin D3) 10 10 mcg PO DAILY 10/09/22 01/07/24 01/08/24 History mcg (400 unit) capsule (Vitamin D3) melatonin 5 mg tablet 10 mg PO BEDTIME 10/09/22 01/07/24 01/08/24 History trazodone 150 mg tablet 300 mg PO BEDTIME 10/09/22 01/07/24 01/08/24 History gabapentin 300 mg capsule 300 mg PO TID 02/04/23 01/07/24 01/09/24 History lovastatin 40 mg tablet 40 mg PO BEDTIME 02/05/23 01/07/24 01/08/24 History testosterone cypionate 200 mg/mL 120 mg (0.6 mL) IM Q7D #10 mL 02/07/23 01/07/24 Unknown Rx intramuscular oil furosemide 20 mg tablet 20 mg PO DAILY #90 tabs 04/19/23 01/07/24 01/08/24 Rx potassium chloride 10 mEq 10 meq PO DAILY #90 tabs 04/19/23 01/07/24 01/08/24 Rx tablet,extended release digoxin 125 mcg (0.125 mg) tablet 125 mcg PO DAILY #90 tabs 06/07/23 01/07/24 01/08/24 Rx metoprolol tartrate 25 mg tablet 25 mg PO Q12H 30 days #180 tabs 10/24/23 01/07/24 01/08/24 Rx Allergies Allergy/AdvReac Type Severity Reaction Status Date / Time oats Allergy DIARRHEA Verified 01/09/24 08:22 Opioids - Morphine Analogues Allergy ADR-Chest Verified 01/09/24 08:22 Pain caffeine AdvReac Unknown PALPITATION Verified 01/09/24 08:22 S apple AdvReac DIARRHEA, Verified 01/09/24 08:22 VOMITING AND CRAMPING egg AdvReac DIARRHEA, Verified 01/09/24 08:22 VOMITING AND STOMACH CRAMPING meperidine [From Demerol] AdvReac EXCESSIVE Verified 01/09/24 08:22 SEDATION morphine AdvReac HALLUCINATI Verified 01/09/24 08:22 ONS berries Allergy Unknown Uncoded 01/09/24 08:22 raw tomatoes Allergy ADR-Gastrointestinal Uncoded 01/09/24 08:22 Upset FRYE AdvReac DIARRHEA Uncoded 01/09/24 08:22 Current Medications Generic Name Dose Route Start Last Admin Trade Name Freq PRN Reason Stop Dose Admin Sodium Chloride 1,000 mls @ 30 mls/hr 01/09/24 08:00 01/09/24 08:31 Sodium Chloride 0.9% IV 01/10/24 07:59 30 mls/hr .Q24H SOFIA Administration PFSH Anesthesia Medical History Ileus Afib Colon cancer Osteoarthritis Orthostatic hypotension 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 (~08/2022) hospitalized in [place] Cardiomegaly Chronic sinusitis of both maxillary sinuses Gout Asperger syndrome mild Dyslipidemia Degenerative joint disease (DJD) of lumbar spine Obstructive sleep apnea Chronic low back pain Polycythemia Hypertension Substernal goiter Asthma Restrictive lung disease due to kyphoscoliosis Suspected exposure to asbestos Allergies Right renal stone Testosterone deficiency On TRT for 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 Erectile dysfunction Opioid contract exists previous Chronic pain syndrome Surgical History Hx of bilateral cataract extraction History of colostomy (11/01/22) Colostomy revision for control of bleeding History of exploratory laparotomy (10/15/22) Exploratory laparotomy with partial colon resection and with end colostomy formation Status post left hemicolectomy (10/08/22) laparoscopic converted to open, with splenic flexure takedown and right colon mobilization, primary anastamosis History of back surgery History of shoulder surgery History of appendectomy H/O arthroscopic knee surgery H/O ankle fusion H/O wrist surgery S/P ureteral stent placement Family History Grandfather CAD (coronary artery disease) Family/Other Cancer Grandmother Dementia Stroke Mother Lung disease Other Hypertension Denies family history of Rheumatoid arthritis Diabetes Lupus Clotting disorder Hyperlipidemia Chronic kidney disease (CKD) Suicide Anesthesia complication Bleeding disorder Social History Smoking and tobacco/nicotine status: former use of tobacco/nicotine Quit status (tobacco/nicotine): has quit using Year quit tobacco: 1975 [id number] Second hand smoke exposure: Yes Alcohol intake: never Substance/Drug Use: never Lives independently: Yes Current occupational status: retired Pets and animals: Yes Do you think of yourself as: Straight/Heterosexual Current gender identity: Male Data Anesthesia Cardiac Studies: Echocardiogram Ultrasound 10/17/20 Sestamibi Stress Test (Cardiology) 10/05/22
--- NOTE | 2024-01-09 09:28 | W.PM.OPSUD ---
Surgery/Procedure H&P Update DATE OF PROCEDURE: January 09, 2024 DATE H&P PERFORMED: 12/26/23 H&P UPDATE INFORMATION: I have reviewed H&P completed within last 30 days, I have examined patient prior to procedure and No changes to prior documentation PREOP DIAGNOSIS: screening PLANNED PROCEDURE: Operation Date: 01/09/24 09:00 Proposed Procedures p Colonoscopy(Not Applicable) - Isaias Soares DO
[2024-01-09 10:08] VITALS: BP 150/89; PULSE 93; RESP 18; TEMP 36.1; O2SAT 92
[2024-01-09 10:15] VITALS: BP 125/84; PULSE 90; RESP 18; O2SAT 94
--- NOTE | 2024-01-09 10:30 | ANE.PACU2 ---
Inpatient post-anesthesia follow up: Airway intact: Yes Vital signs: Temperature 97 F Pulse Rate 90 Respiratory Rate 18 Blood Pressure 125/84 Pulse Oximetry 94 Oxygen Delivery Me thod Nasal Cannula Oxygen Flow Rate 4 Fraction of Inspir ed Oxygen Hydration adequate: Yes Nausea and vomiting: No Pain level: 1 Mental status: Baseline
[2024-01-09 10:33] VITALS: BP 135/75; PULSE 94; RESP 20; O2SAT 94
== END 2024-01-09 10:58 | disposition home or self-care (01) ==
PROVIDERS: PCP Family Medicine; Visit Provider Surgery
PROC: 0DJD8ZZ Inspection of Lower Intestinal Tract, Via Natural or Artificial Opening Endoscopic (ICD-10-PCS; CPT 45378; principal; 2024-01-09 09:00)
DX: Z12.11 Encounter for screening for malignant neoplasm of colon (principal); K52.9 Noninfective gastroenteritis and colitis, unspecified; D12.2 Benign neoplasm of ascending colon; G47.30 Sleep apnea, unspecified; Z85.038 Personal history of other malignant neoplasm of large intestine; I48.91 Unspecified atrial fibrillation; I10 Essential (primary) hypertension; K21.9 Gastro-esophageal reflux disease without esophagitis; Z93.3 Colostomy status; E78.5 Hyperlipidemia, unspecified; E66.01 Morbid (severe) obesity due to excess calories; Z68.39 Body mass index [BMI] 39.0-39.9, adult; Z86.16 Personal history of COVID-19; Z87.891 Personal history of nicotine dependence
CPT/HCPCS: 45380; 45382; 45385; 88305; J2704; J7030

== ENCOUNTER → 2024-01-27 14:00 | Outpatient (BNVA) | payer MEDICARE, SELFPAY | PROVIDERS: PCP Family Medicine; Visit Provider Surgery | DX: Z09 Encounter for follow-up examination after completed treatment for conditions other than malignant neoplasm (principal); Z85.038 Personal history of other malignant neoplasm of large intestine; R16.0 Hepatomegaly, not elsewhere classified; D12.6 Benign neoplasm of colon, unspecified | CPT/HCPCS: 99214 ==

== ENCOUNTER 2024-02-10 09:48 | Inpatient (IN) | payer MEDICARE, SELFPAY ==
[2024-02-10] VITALS (53 sets, daily range): BP systolic 110–184; BP diastolic 62–101; PULSE 80–103; RESP 16–27; TEMP 36.6–36.7; O2SAT 87–99; BMI 38.3
[2024-02-10 11:21] LABS: Basophils % 0.5 %; Eosinophils # 0.2 10^3/uL (0.0-0.8); Eosinophils % 2.3 %; Hematocrit 54.1 % (37-53); Lymphocytes # 1.1 10^3/uL (0.8-4.8); Lymphocytes % 15.1 %; Mean Corpuscular HGB Conc 31.4 g/dL (30-55); Mean Corpuscular Hemoglobin 30.4 pg (27-33); Mean Corpuscular Volume 96.8 fl (82-101); Mean Platelet Volume 9.9 fL (7.4-10.4); Monocytes # 0.8 10^3/uL (0.2-0.9); Monocytes % 10.6 %; Neutrophils # 5.27 10^3/uL (1.8-7.7); Nucleated Red Blood Cells % 0 %; Platelet Count 169 10^3/cmm (157-399); Red Blood Count 5.59 10^6/uL (3.85-5.65); Red Cell Distribution Width 14.6 % (12.1-15.1); White Blood Count 7.43 10^3/uL (3.29-11.43)
--- NOTE | 2024-02-10 11:27 | CT_ITS ---
WS: [id number] CT ABDOMEN PELVIS TECHNIQUE: Contrast-enhanced CT of the abdomen and pelvis with coronal and sagittal reformatted image s. CLINICAL INFORMATION: abd pain COMPARISON: CT 12/04/2023 DLP: 1417.[address] scans at [facility] use at least one of these dose optimization techniques: automated e xposure control; mA and/or kV adjustment per patient size (includes targeted exams where dose is matc hed to clinical indication); or iterative reconstruction. FINDINGS: Prior LEFT hemicolectomy. RIGHT lower quadrant colostomy. Colostomy appears patent. No evidence of high-grade obstruction. Hepatomegaly. Metastasis RIGHT hepatic lobe similar to the prior studies measuring 4.4 x 2.7 cm. Mateo tional area of progressed metastasis in the inferior RIGHT hepatic lobe compared to the prior CT 2023 and prior PET/CT 12/10/2023. This lesion measures approximately 5.4 cm. Diffusely fatty infiltrat ion of the liver. Portal vein and splenic vein appear patent. Normal gallbladder. Bibasilar atelectasis. Prior extensive postoperative changes throughout the thoracic and lumbar fusi on. This degrades images in the abdomen and pelvis. Adrenal glands are normal. LEFT renal cyst. LEFT renal atrophy. RIGHT subcapsular RIGHT renal collection decreased in size compared to the prior studi es. No hydronephrosis in either kidney. Enlarged prostate measuring 5.4 cm. Normal caliber abdominal aorta. CT/CT abdomen pelvis w con* [id number] IMPRESSION: 1. Prior LEFT hemicolectomy with RIGHT lower quadrant colostomy. No evidence o f bowel obstruction. 2. Progressed metastasis in the inferior RIGHT hepatic lobe described above. 3. Diffuse fatty infiltration of the liver. Hepatomegaly. 4. Previously described RIGHT subcapsular renal hematoma is decreased in size compared to the prior studies today measuring 4.6 cm. 5. No hydronephrosis in either kidney. 6. Enlarged prostate. 7. Extensive postoperative changes thoracic and lumbar spine
--- NOTE | 2024-02-10 11:28 | ED_ITS ---
HPI - Abdominal Pain 2 General: Chief Complaint: Abdominal Pain Stated Complaint: right side abd pain Time Seen by Provider: 02/10/24 11:16 Source: patient Mode of arrival: ambulatory Limitations: no limitations History of Present Illness: 68-year-old male who had extensive abdom inal surgeries he had a colectomy 2 years ago for colon cancer he does have an ostomy states he had multiple complications after that. He states that over the last 2 days has been having severe right-sided abdominal pain he did had decreased output out of his ostomy but states that today started to have some more output again. He rates his pain a 7 out of 10 denies any fever denies any vomiting. 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 (~08/2022) hospitalized in [place] Cardiomegaly Chronic sinusitis of both maxillary sinuses Gout Asperger syndrome mild Dyslipidemia Degenerative joint disease (DJD) of lumbar spine Obstructive sleep apnea Chronic low back pain Polycythemia Hypertension Substernal goiter Asthma Restrictive lung disease due to kyphoscoliosis Suspected exposure to asbestos Allergies Right renal stone Testosterone deficiency On TRT for 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 Erectile dysfunction Opioid contract exists previous Chronic pain syndrome Surgical History Hx of bilateral cataract extraction History of colostomy (11/01/22) Colostomy revision for control of bleeding History of exploratory laparotomy (10/15/22) Exploratory laparotomy with partial colon resection and with end colostomy formation Status post left hemicolectomy (10/08/22) laparoscopic converted to open, with splenic flexure takedown and right colon mobilization, primary anastamosis History of back surgery History of shoulder surgery History of appendectomy H/O arthroscopic knee surgery H/O ankle fusion H/O wrist surgery S/P ureteral stent placement Family History Grandfather CAD (coronary artery disease) Family/Other Cancer Grandmother Dementia Stroke Mother Lung disease Other Hypertension Denies family history of Rheumatoid arthritis Diabetes Lupus Clotting disorder Hyperlipidemia Chronic kidney disease (CKD) Suicide Anesthesia complication Bleeding disorder Social History Smoking and tobacco/nicotine status: never used tobacco/nicotine Quit status (tobacco/nicotine): has quit using Year quit tobacco: 1975 [id number] Second hand smoke exposure: Yes Alcohol intake: never Substance/Drug Use: never Lives independently: Yes Current occupational status: retired Pets and animals: Yes Do you think of yourself as: Straight/Heterosexual Current gender identity: Male Physical Exam 2 Const: COMMON NORMALS: no acute distress, patient oriented x3 and healthy appearing HENMT: COMMON NORMALS: normocephalic and atraumatic HEAD & SCALP: n ormocephalic and atraumatic Neck/C-Spine: COMMON NORMALS: full ROM and supple Chest: COMMONS NORMALS: normal inspection of the chest Resp: COMMON NORMALS: normal respiratory effort Cardio: COMMON NORMALS: regular rate, regular rhythm and No murmurs present (Cardio) RATE: regular rate RHYTHM: regular rhythm GI: COMMON NORMALS: Normal to inspection, nondistended, normoactive bowel sounds present and no masses OTHER: right side abd tenderness Extremity: COMMON NORMALS: normal to inspection and full ROM Neuro: COMMON NORMALS: patient oriented x3, moves all extremities and no focal motor deficits Psych: COMMON NORMALS: mental status grossly normal, Normal thought process present and cooperative THOUGHT PROCESS: Normal thought process present Skin: COMMON NORMALS: no rashes or lesions noted and no wounds GENERAL SKIN EXAM: no rashes or lesions noted Course 2 Vital Signs: Vital signs: Vital Signs Temperature 97.9 F 02/10/24 10:32 Pulse Rate 91 02/10/24 14:26 Respiratory Rate 17 02/10/24 11:44 Blood Pressure 140/66 02/10/24 14:00 Pulse Oximetry 96 02/10/24 14:26 Oxygen Delivery Me thod Room Air 02/10/24 10:32 Fraction of Inspir ed Oxygen 40 02/10/24 14:26 MDM - Abdominal Pain Medical Decision Making Presents originally abdominal pain white count CT scan of the abdomen is normal he has been quite hypoxic here requiring oxygen ABG showed hypercapnia and patient was started on BiPAP CT showed emphysematous changes no PE or pneumonia will admit at this time for his hypoxia and hypercapnia Medical Records I reviewed the patient's medical records. Lab Data I reviewed the patient's lab results. 02/10/24 11:08 02/10/24 11:08 Labs/Radiology: Radiology Impressions Abdomen/Pelvis CT 02/10/24 11:27 IMPRESSION: 1. Prior LEFT hemicolectomy with RIGHT lower quadrant colostomy. No evidence of bowel obstruction. 2. Progressed metastasis in the inferior RIGHT hepatic lobe described above. 3. Diffuse fatty infiltration of the liver. Hepatomegaly. 4. Previously described RIGHT subcapsular renal hematoma is decreased in size compared to the prior studies today measuring 4.6 cm. 5. No hydronephrosis in either kidney. 6. Enlarged prostate. 7. Extensive postoperative changes thoracic and lumbar spine Chest X-Ray 02/10/24 12:00 IMPRESSION: Cardiomegaly and cephalization of pulmonary blood flow suggesting pulmonary venous hypertension. No pulmonary edema at this time Chest CTA 02/10/24 13:11 IMPRESSION: 1. No evidence of pulmonary emboli. 2. Moderate chronic emphysematous changes with bibasilar atelectasis. No acute pulmonary infiltrates. 3. Cardiomegaly. 4. Prior extensive postoperative changes thoracic and lumbar spine. 5. Small esophageal hiatal hernia. 6. Multinodular enlarged LEFT thyroid. This is similar to the prior study. Laboratory Results WBC 7.43 10^3/uL (3.29-11.43) 02/10/24 11:08 RBC 5.59 10^6/uL (3.85-5.65) 02/10/24 11:08 Hgb 17.00 g/dL (11.27-16.99) H 02/10/24 11:08 Hct 54.1 % (37-53) H 02/10/24 11:08 MCV 96.8 fl (82-101) 02/10/24 11:08 MCH 30.4 pg (27-33) 02/10/24 11:08 MCHC 31.4 g/dL (30-55) 02/10/24 11:08 RDW 14.6 % (12.1-15.1) 02/10/24 11:08 Plt Count 169 10^3/cmm (157-399) 02/10/24 11:08 MPV 9.9 fL (7.4-10.4) 02/10/24 11:08 Neut % (Auto) 71.0 % 02/10/24 11:08 Lymph % (Auto) 15.1 % 02/10/24 11:08 [place] % (Auto) 10.6 % 02/10/24 11:08 Eos % (Auto) 2.3 % 02/10/24 11:08 Baso % (Auto) 0.5 % 02/10/24 11:08 Neut # (Auto) 5.27 10^3/uL (1.8-7.7) 02/10/24 11:08 Lymph # (Auto) 1.1 10^3/uL (0.8-4.8) 02/10/24 11:08 [place] # (Auto) 0.8 10^3/uL (0.2-0.9) 02/10/24 11:08 Eos # (Auto) 0.2 10^3/uL (0.0-0.8) 02/10/24 11:08 Baso # (Auto) 0.0 10^3/uL (0.0-0.1) 02/10/24 11:08 Nucleated RBC % (auto) 0 % 02/10/24 11:08 Nucleated RBCs # 0.0 /100WBC 02/10/24 11:08 Specimen Type Arterial 02/10/24 13:39 Sample Site Radial, right 02/10/24 13:39 ABG pH 7.26 (7.35-7.45) L 02/10/24 13:39 ABG pCO2 72.0 mmHg (35-45) H* 02/10/24 13:39 ABG pO2 67.9 mmHg (80.0-100.0) L 02/10/24 13:39 ABG PO2/FiO2 Ratio 0 02/10/24 13:39 ABG HCO3 32.3 mmol/L (22-26) H 02/10/24 13:39 ABG Base Excess 2.3 mmol/L (-2.0-2.0) H 02/10/24 13:39 [place] Test Pos 02/10/24 13:39 Hematocrit 52.9 % (42-52) H 02/10/24 13:39 O2 Delivery Device Nc 02/10/24 13:39 O2 Liters/Min 2.5 % 02/10/24 13:39 FiO2 30.0 % 02/10/24 13:39 Straight Line Edger ID glc 02/10/24 13:39 Sodium 139 mmol/L (136-145) 02/10/24 11:08 Potassium 4.6 mmol/L (3.5-5.1) 02/10/24 11:08 Chloride 102 mmol/L (98-107) 02/10/24 11:08 Carbon Dioxide 30 mmol/L (22-29) H 02/10/24 11:08 Anion Gap 11.6 (5-19) 02/10/24 11:08 BUN 12 mg/dL (8-23) 02/10/24 11:08 Creatinine 1.0 mg/dL (0.7-1.2) 02/10/24 11:08 GFR Calculation 74.3 mL/min (90-130) L 02/10/24 11:08 Glucose 144 mg/dL (65-115) H 02/10/24 11:08 Calculated Osmolality 290 mOsm/kg (285-295) 02/10/24 11:08 Calcium 9.1 mg/dL (8.5-10.5) 02/10/24 11:08 Total Bilirubin 0.5 mg/dL (0.15-1.2) 02/10/24 11:08 AST 19 U/L (0-40) 02/10/24 11:08 ALT 17 U/L (0-41) 02/10/24 11:08 Alkaline Phosphatase 63 U/L (40-130) 02/10/24 11:08 Troponin T Baseline 26 ng/L (0-15) H 02/10/24 11:08 Troponin T 120 Minute 25.58 ng/L (0-15) H 02/10/24 13:51 Delta Troponin T -0.42 ABS# (0-10) L 02/10/24 13:51 NT-Pro-B Natriuret Pep 877 pg/mL (0-125) H 02/10/24 11:08 Total Protein 7.2 g/dL (6.6-8.7) 02/10/24 11:08 Albumin 3.9 g/dL (3.5-5.2) 02/10/24 11:08 Globulin 3.3 g/dL (1.3-4.6) 02/10/24 11:08 Lipase 32 U/L (13-60) 02/10/24 11:08 Urine Color Yellow (Yellow) 02/10/24 12:58 Urine Appearance Sl hazy (CLEAR) A 02/10/24 12:58 Urine pH 5 (5-7) 02/10/24 12:58 Ur Specific [place] 1.005 (1.005-1.030) 02/10/24 12:58 Urine Protein Trace (Negative) 02/10/24 12:58 Urine Glucose (UA) Norm (Normal) 02/10/24 12:58 Urine Ketones Negative (Negative) 02/10/24 12:58 Urine Blood Neg (Negative) 02/10/24 12:58 Urine Nitrate Negative (Negative) 02/10/24 12:58 Urine Bilirubin Neg (Negative) 02/10/24 12:58 Urine Urobilinogen Norm mg/dL (Negative) 02/10/24 12:58 Ur Leukocyte Esterase Negative (Negative) 02/10/24 12:58 Urine RBC None /hpf (0-2) 02/10/24 12:58 Urine WBC 0-4 /hpf (0-5) H 02/10/24 12:58 Ur Squamous Epith Cells 0-4 /hpf (0-5) H 02/10/24 12:58 Amorphous Sediment Not Reportable 02/10/24 12:58 Urine Bacteria Trace /hpf (NONE) 02/10/24 12:58 Digoxin 0.3 ng/mL (0.6-1.2) L 02/10/24 13:51 All radiology interpretation(s) finalized by discharge EKG Data EKG 1: I personally reviewed and interpreted this EKG as follows: EKG interpretation date: 02/10/24 EKG interpretation time: 13:22 Interpretation: afib hr [address] elevation qrs 119 qtc 403 EKG 2: I personally reviewed and interpreted this EKG as follows: EKG interpretation date: 02/10/24 EKG interpretation time: 14:01 Interpretation: sinus tach hr [address] or t wave abnormalities qrs 102 qtc 449 Critical Care Time 2 Critical Care Time: Critical Care Time: Yes Total Critical Care Time: 40 Attestation: The high probability of a clinically significant, sudden or life threatening deterioration of the patient'sresp are time is as shown. This time is in addition to time spent performing any reported procedures but includes the following: [x] Data and vital sign review and interpretation [x] Patient assessment, examination and intervention [x] Documentation [x] Medication orders and management Discharge Plan Discharge Patient Disposition: Admitted As Inpatient Clinical Impression: Acute respiratory failure with hypoxia and hypercapnia Condition: Stable Prescriptions: No Action allopurinol 300 mg tablet 300 mg PO DAILY multivitamin Tablet 6 tab PO DAILY@2200 lycopene 10 mg capsule 10 mg PO DAILY Rx Instructions: administer after a meal resveratrol 250 mg capsule 250 mg PO QPM saw palmetto 500 mg capsule 500 mg PO DAILY Rx Instructions: give with food (meal/snack) lovastatin 40 mg tablet 40 mg PO BEDTIME testosterone cypionate 200 mg/mL oil 120 mg IM Q7D Qty: 10 5RF Rx Instructions: ON TUESDAYS metoprolol tartrate 25 mg tablet 25 mg PO Q12H 30 Days Qty: 180 3RF potassium chloride 10 mEq tablet extended release 10 meq PO DAILY Qty: 90 2RF Hold Instructions: Resume on 10/14/23. furosemide 20 mg tablet 20 mg PO DAILY Qty: 90 2RF Hold Instructions: Resume on 10/14/23. digoxin 125 mcg (0.125 mg) tablet 125 mcg PO DAILY Qty: 90 3RF sennosides [senna] 8.6 mg Tablet 8.6 mg PO DAILY PRN (Reason: Constipation) loratadine [Claritin] 10 mg tablet 10 mg PO DAILY tadalafil [Cialis] 20 mg tablet 20 mg PO DAILY PRN (Reason: sexual activity) Rx Instructions: administer approximately 30min before sexual activity; NO NITROGLYCERIN! acetaminophen 500 mg Tablet 500 mg PO Q6H PRN (Reason: Pain) trazodone 150 mg tablet 300 mg PO BEDTIME cholecalciferol (vitamin D3) [Vitamin D3] 10 mcg (400 unit) Capsule 10 mcg PO DAILY melatonin 5 mg Tablet 10 mg PO BEDTIME ketoconazole 2 % shampoo 1 applic TOPICAL DAILY PRN (Reason: Rash) gabapentin 300 mg capsule 300 mg PO TID Referrals: Al Álvarez MD [Primary Care Provider] - Coding Level of Care Code ED Motor Vehicle Dispatcher for Chg Fwadrien
[2024-02-10 11:37] LABS: Alanine Aminotransferase 17 U/L (0-41); Albumin Level 3.9 g/dL (3.5-5.2); Alkaline Phosphatase 63 U/L (40-130); Anion Gap 11.6 (5-19); Aspartate Amino Transferase 19 U/L (0-40); Blood Urea Nitrogen 12 mg/dL (8-23); Calcium 9.1 mg/dL (8.5-10.5); Carbon Dioxide 30 mmol/L (22-29); Chloride 102 mmol/L (98-107); Creatinine Clr Calc Pharmacy 109.2328; Globulin 3.3 g/dL (1.3-4.6); Glomerular Filtration Rate 74.3 mL/min (90-130); Glucose 144 mg/dL (65-115); Lipase 32 U/L (13-60); Osmolality Calculated 290 mOsm/kg (285-295); Potassium 4.6 mmol/L (3.5-5.1); Sodium 139 mmol/L (136-145); Total Bilirubin 0.5 mg/dL (0.15-1.2); Total Protein 7.2 g/dL (6.6-8.7)
[2024-02-10] MEDS: ondansetron 2 mg/ML SDV 2 mL 4 MG IVP (11:44)
[2024-02-10] MEDS: HYDROmorphone 1 mg/mL INJ 1 mL IVP (11:44)
--- NOTE | 2024-02-10 12:00 | XRR_ITS ---
PROCEDURE INFORMATION: Exam: XR Chest Exam date and time: 02/10/2024 12:13 PM Age: 68 years old Clinical indication: Other: Abd pain TECHNIQUE: Imaging protocol: Radiologic exam of the chest. Views: 1 view. COMPARISON: CT ch abdpel wo/w [id number] 03/02/2024 10:38 FINDINGS: Lungs: Cephalization of pulmonary blood flow suggesting pulmonary venous hypertension. No pulmonary edema at this time. No peripheral consolidations Pleural spaces: Unremarkable. No pleural effusion. No pneumothorax. Heart/Mediastinum: Mild cardiomegaly. Bones/joints: Marr rods span the thoracic spine. The patient is status post resection of the left 7th rib. XR/XR chest 1V portable [id number] IMPRESSION: Cardiomegaly and cephalization of pulmonary blood flow suggesting pulmonary venous hypertension. No pulmonary edema at this time
[2024-02-10] MEDS: iohexol 350 mg/mL 500 mL Btl (per mL) IV ×2 (12:12→14:06)
--- NOTE | 2024-02-10 13:11 | CT_ITS ---
WS: [id number] CTA OF THE CHEST WITH PULMONARY EMBOLISM PROTOCOL TECHNIQUE: High-resolution contrast enhanced CTA of the chest with coronal and sagittal reformatted i mages with pulmonary embolism protocol. MIP images are also reviewed. CLINICAL INFORMATION: hypoxia COMPARISON: CT 12/04/2023 DLP: 662.[address] scans at [facility] use at least one of these dose optimization techniques: automated e xposure control; mA and/or kV adjustment per patient size (includes targeted exams where dose is matc hed to clinical indication); or iterative reconstruction. FINDINGS: Proximal pulmonary arteries are normal. Normal segmental and subsegmental pulmonary arteries. No evid ence of pulmonary embolus. Aortic calcification. Enlarged multinodular LEFT thyroid unchanged. Mild m ass effect on the trachea at the thoracic inlet. No axillary lymphadenopathy. Cardiomegaly. Small eso phageal hiatal hernia. Adrenal glands are normal. Extensive prior postoperative changes thoracic and lumbar spine. Chronic emphysematous changes. Atelectasis in the lung bases. No acute pulmonary infilt rates. CT/CT angio chest PE protcl [id number] IMPRESSION: 1. No evidence of pulmonary emboli. 2. Moderate chronic emphysematous changes with bibasilar atelectasis. No acute pulmonary infiltrates. 3. Cardiomegaly. 4. Prior extensive postoperative changes thoracic and lumbar spine. 5. Small esophageal hiatal hernia. 6. Multinodular enlarged LEFT thyroid. This is similar to the prior study.
--- NOTE | 2024-02-10 13:11 | ECG_ITS ---
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 Measurements Intervals [place] Rate: 100 P: 0 SC: 0 QRS: -13 QRSD: 119 T: 118 QT: 346 QTc: 447 Interpretive Statements ATRIAL FIBRILLATION WITH RAPID VENTRICULAR RESPONSE SEPTAL MYOCARDIAL INFARCTION , OF INDETERMINATE AGE [40+ ms Q WAVE IN V1/V2] MODERATE T-WAVE ABNORMALITY, CONSIDER LATERAL ISCHEMIA [-0.1+ mV T-WAVE IN I/aVL/V5/V6] Compared to ECG 10/09/2023 18:43:26 No significant changes Electronically Signed On 02-10-2024 17:57:47 CDT by Raiza Orourke M.D. [id number]
[2024-02-10 13:23] LABS: Add Urine Microscopic? YES; Bilirubin Urine Neg (Negative); Blood Urine Neg (Negative); Glucose Urine UA Norm (Normal); Ketones Urine Negative (Negative); Leukocyte Esterase Urine Negative (Negative); Nitrate Urine Negative (Negative); Protein Urine Trace (Negative); Specific Gravity, Urine 1.005 (1.005-1.030); Urine Appearance SL Hazy (CLEAR); Urine Color Yellow (Yellow); Urobilinogen Urine Norm (Negative); pH Urine 5 (5-7)
[2024-02-10 13:24] LABS: Add Urine Culture? No; Bacteria Urine TRACE /hpf; Squamous Epithelial Cell Urine 0-4 /hpf (0-5); WBC Urine 0-4 /hpf (0-5)
[2024-02-10 13:52] LABS: ABG PH Result 7.26 (7.35-7.45); Arterial Blood Gas Hematocrit 52.9 % (42-52); Base Excess ABG 2.3 mmol/L (-2.0-2.0); Blood Gas Allen Test Pos; Blood Gas LPM 2.5 %; Blood Gas Operator Identificat glc; Blood Gas Sample Site Radial, right; Blood Gas Sample Type Arterial; HCO3 ABG 32.3 mmol/L (22-26); Oxygen Device NC; PO2 ABG 67.9 mmHg (80.0-100.0); PO2 FiO2 Ratio Arterial Blood 0
[2024-02-10 14:05] LABS: Troponin(5th) Baseline 26 ng/L (0-15)
[2024-02-10 14:23] LABS: Digoxin 0.3 ng/mL (0.6-1.2)
[2024-02-10 14:26] LABS: Troponin 5 2HR 25.58 ng/L (0-15)
[2024-02-10 14:27] LABS: NT Pro B Type Natriuretic Pept 877 pg/mL (0-125)
[2024-02-10 14:32] LABS: Troponin 5 2HR Delta -0.42 ABS# (0-10)
--- NOTE | 2024-02-10 15:11 | ECG_ITS ---
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 Measurements Intervals [place] Rate: 85 P: 0 [place]: 0 QRS: 17 QRSD: 122 T: 104 QT: 346 QTc: 413 Interpretive Statements ATRIAL FIBRILLATION SEPTAL MYOCARDIAL INFARCTION , OF INDETERMINATE AGE [40+ ms Q WAVE IN V1/V2] Compared to ECG 02/10/2024 13:22:48 T-wave abnormality no longer present Possible ischemia no longer present Myocardial infarct finding still present Electronically Signed On 02-10-2024 18:10:19 CDT by Raiza Orourke M.D. [id number]
[2024-02-10] MEDS: methylPREDNISolone sod succ 125 mg/2 mL INJ IVP (15:20)
[2024-02-10] MEDS: ipratropium-albuterol 3 mL Neb INHALATION (15:28)
--- NOTE | 2024-02-10 15:36 | P.HP_ITS ---
Providers/Chief Complaint 2 Primary Care Provider: Al Álvarez MD Chief Complaint: right side abd pain History of Present Illness Charan Voss is a 68 year old male with history of colon cancer status post colectomy, presented with chief complaint of right upper quadrant pain, patient is denying fever, diarrhea, chest pain, shortness of breath stating that he present to the hospital for worsening of right upper quadrant pain he has not noticed increased output from colostomy bag, no nausea vomiting or fever. No one is sick around him. Does not smoke, has quit smoking 25 years ago, CT scan showing hepatomegaly metastatic right hepatic lobe lesions diffuse fatty infiltration of liver normal gallbladder. I will request gallbladder ultrasound. Incidental finding of hypoxic hypercarbic respiratory failure requiring BiPAP, patient never complained of shortness of breath, no previous official diagnosis of COPD. Requesting another ABG patient clinically looks stable. Review of Systems 2 Eyes: Denies: change in vision ENMT: Denies: throat pain Card: Denies: chest pain Resp: Denies: dyspnea GI: Reports: abdominal pain : Denies: flank pain Medications/Allergies Home Medications Medication Instructions Recorded Confirmed Last Taken Type allopurinol 300 mg tablet 300 mg PO DAILY 10/15/19 01/27/24 01/08/24 History multivitamin 6 tab PO DAILY@2200 10/15/19 01/27/24 01/08/24 History sennosides 8.6 mg tablet (senna) 8.6 mg PO DAILY PRN Constipation 10/27/19 01/27/24 10/07/22 History lycopene 10 mg capsule 10 mg PO DAILY 11/15/20 01/27/24 01/08/24 History resveratrol 250 mg capsule 250 mg PO QPM 11/15/20 01/27/24 01/08/24 History saw palmetto 500 mg capsule 500 mg PO DAILY 11/15/20 01/27/24 01/08/24 History loratadine 10 mg tablet (Claritin) 10 mg PO DAILY 11/21/21 01/27/24 01/08/24 History ketoconazole 2 % shampoo 1 applic topical DAILY PRN Rash 07/18/22 01/27/24 01/08/24 History tadalafil 20 mg tablet (Cialis) 20 mg PO DAILY PRN sexual activity 09/18/22 01/27/24 Unknown History acetaminophen 500 mg tablet 500 mg PO Q6H PRN Pain 10/09/22 01/27/24 01/09/24 History cholecalciferol (vitamin D3) 10 10 mcg PO DAILY 10/09/22 01/27/24 01/08/24 History mcg (400 unit) capsule (Vitamin D3) melatonin 5 mg tablet 10 mg PO BEDTIME 10/09/22 01/27/24 01/08/24 History trazodone 150 mg tablet 300 mg PO BEDTIME 10/09/22 01/27/24 01/08/24 History gabapentin 300 mg capsule 300 mg PO TID 02/04/23 01/27/24 01/09/24 History lovastatin 40 mg tablet 40 mg PO BEDTIME 02/05/23 01/27/24 01/08/24 History testosterone cypionate 200 mg/mL 120 mg (0.6 mL) IM Q7D #10 mL 02/07/23 01/27/24 Unknown Rx intramuscular oil furosemide 20 mg tablet 20 mg PO DAILY #90 tabs 04/19/23 01/27/24 01/08/24 Rx potassium chloride 10 mEq 10 meq PO DAILY #90 tabs 04/19/23 01/27/24 01/08/24 Rx tablet,extended release digoxin 125 mcg (0.125 mg) tablet 125 mcg PO DAILY #90 tabs 06/07/23 01/27/24 01/08/24 Rx metoprolol tartrate 25 mg tablet 25 mg PO Q12H 30 days #180 tabs 10/24/23 01/27/24 01/08/24 Rx Allergies Allergy/AdvReac Type Severity Reaction Status Date / Time oats Allergy DIARRHEA Verified 02/10/24 10:38 Opioids - Morphine Analogues Allergy ADR-Chest Verified 02/10/24 10:38 Pain caffeine AdvReac Unknown PALPITATION Verified 02/10/24 10:38 S apple AdvReac DIARRHEA, Verified 02/10/24 10:38 VOMITING AND CRAMPING meperidine [From Demerol] AdvReac EXCESSIVE Verified 02/10/24 10:38 SEDATION morphine AdvReac HALLUCINATI Verified 02/10/24 10:38 ONS berries Allergy Unknown Uncoded 02/10/24 10:38 raw tomatoes Allergy ADR-Gastrointestinal Uncoded 02/10/24 10:38 Upset FRYE AdvReac DIARRHEA Uncoded 02/10/24 10:38 PFSH Acute 2 PFSH: Medical History Ileus Afib Colon cancer Osteoarthritis Orthostatic hypotension 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 (~08/2022) hospitalized in [place] Cardiomegal Chronic sinusitis of both maxillary sinuses Gout Asperger syndrome mild Dyslipidemia Degenerative joint disease (DJD) of lumbar spine Obstructive sleep apnea Chronic low back pain Polycythemia Hypertension Substernal goiter Asthma Restrictive lung disease due to kyphoscoliosis Suspected exposure to asbestos Allergies Right renal stone Testosterone deficiency On TRT for 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 Erectile dysfunction Opioid contract exists previous Chronic pain syndrome Surgical History Hx of bilateral cataract extraction History of colostomy (11/01/22) Colostomy revision for control of bleeding History of exploratory laparotomy (10/15/22) Exploratory laparotomy with partial colon resection and with end colostomy formation Status post left hemicolectomy (10/08/22) laparoscopic converted to open, with splenic flexure takedown and right colon mobilization, primary anastamosis History of back surgery History of shoulder surgery History of appendectomy H/O arthroscopic knee surgery H/O ankle fusion H/O wrist surgery S/P ureteral stent placement Family History Grandfather CAD (coronary artery disease) Family/Other Cancer Grandmother Dementia Stroke Mother Lung disease Other Hypertension Denies family history of Rheumatoid arthritis Diabetes Lupus Clotting disorder Hyperlipidemia Chronic kidney disease (CKD) Suicide Anesthesia complication Bleeding disorder Social History Smoking and tobacco/nicotine status: never used tobacco/nicotine Quit status (tobacco/nicotine): has quit using Year quit tobacco: 1976 [id number] Second hand smoke exposure: Yes Alcohol intake: never Substance/Drug Use: never Lives independently: Yes Current occupational status: retired Pets and animals: Yes Do you think of yourself as: Straight/Heterosexual Current gender identity: Male Vitals/I&O/Wt Last Vital Signs Temp 97.9 F 02/10/24 10:32 Pulse 80 05/13/24 15:31 Resp 18 02/10/24 15:31 BP 140/66 02/10/24 14:00 Pulse Ox 97 02/10/24 15:31 O2 Del Method BiPAP 02/10/24 15:31 FiO2 40 02/10/24 15:31 Weight last 48 hrs Weight 142.882 kg Physical Exam 2 Narrative: Tender to palpate right upper quadrant GCS 15 Nonfocal neuroexam Colostomy bag in place Scar noted on abdomen Currently no active chest pain or fever or hemodynamic instability Pleasant cough Awake and alert Able to comprehend answer my question appropriately S1, S2 Currently on BiPAP Data 02/10/24 11:08 02/10/24 11:08 A&P Assessment and plan (1) Afib: Qualifiers: Atrial fibrillation type: longstanding persistent Qualified Code(s): I 48.11 - Longstanding persistent atrial fibrillation (2) Prolonged bleeding time: (3) Goiter: (4) Low testosterone in male: (5) Liver mass: (6) Liver lesion: (7) Tubular adenoma of colon: (8) Polycythemia: (9) Colon cancer: (10) Malignant neoplasm of splenic flexure: (11) Metastases to the liver: (12) Elevated CEA: (13) Obstructive sleep apnea: (14) Restrictive lung disease due to kyphoscoliosis: (15) Acute respiratory failure with hypoxia and hypercapnia: Plan Right upper quadrant pain Could be secondary to liver mets Hepatic capsule tense secondary to fatty infiltration and hepatomegaly Will use opioids for pain management along bowel regimen CT abdomen pelvis unremarkable Acute COPD exacerbation Untreated sleep apnea Bicarb is high Patient will stay on BiPAP will request another ABG Clinically doing well Okay to admit to [facility] for now Colon cancer with mets to liver Status post colostomy No increased output Full code Cardiac diet DVT prophylaxis Lovenox for now Patient is stating that his blood is always 10 that is why he was taken off Xarelto he has not taken anticoagulating agent for last 1 year History of A-fib no active RVR Patient seems to have diagnosis of restrictive lung disease secondary to obesity and spine disease Attestations 2 Medical Necessity Statement*: More than 2 midnights anticipated Diagnoses Longstanding persistent atrial fibrillation I48.11 Atrial fibrillation type: longstanding persistent Prolonged bleeding time R79.1 Goiter E04.9 Low testosterone in male R79.89 Liver mass R16.0 Liver lesion K76.9 Tubular adenoma of colon D12.6 Polycythemia D75.1 Colon cancer C18.9 Malignant neoplasm of splenic flexure C18.5 Metastases to the liver C78.7 Elevated CEA R97.0 Obstructive sleep apnea G47.33 Restrictive lung disease due to kyphoscoliosis J98.4; M41.9 Acute respiratory failure with hypoxia and hypercapnia J96.01; J96.02
[2024-02-10 17:33] LABS: ABG PH Result 7.27 (7.35-7.45); Arterial Blood Gas Hematocrit 52.3 % (42-52); Blood Gas Allen Test Pos; Blood Gas Operator Identificat glc; Blood Gas Sample Site Radial, right; Blood Gas Sample Type Arterial; HCO3 ABG 33.1 mmol/L (22-26); Oxygen Device BIPAP; PO2 ABG 94.3 mmHg (80.0-100.0); PO2 FiO2 Ratio Arterial Blood 0
[2024-02-10 17:43] LABS: Troponin 5 6HR 23.16 ng/L (0-15)
[2024-02-10 17:44] LABS: Troponin 5 6HR Delta -2.84 ng/L (0-12)
--- NOTE | 2024-02-10 18:31 | USCV_ITS ---
Bipin Charan Age: 68 Gender: M : 1955 Exam Date: 02/10/2024 18:56 Ordering Phys: Uche Collier MD Technologist: TATUM Exam Location: [facility] Indication: chf exacerbation. History of atrial fibrillation. BP: 147 / 72 HR: 92 Rhythm: Atrial fibrillation Technical Quality: Fair MEASUREMENTS (Male / Female) Normal Values 2D ECHO LV Diastolic Diameter PLAX 3.5 cm 4.2 - 5.9 / 3.9 - 5.3 cm IVS Diastolic Thickness 2.2 cm 0.6 - 1.0 / 0.6 - 0.9 cm IVS Systolic Thickness 2.2 cm LVPW Diastolic Thickness 1.7 cm 0.6 - 1.0 / 0.6 - 0.9 cm LVPW Systolic Thickness 2.1 cm LVOT Diameter 2.7 cm LV Ejection Fraction 2D Teich 74.0 % LV Ejection Fraction MOD 2C 66.2 % LV Ejection Fraction 2C AL 72.6 % LA Diameter 4.4 cm Aorta at Sinotubular Diameter 3.7 cm IVC Diameter 1.4 cm M-MODE LA Ao Ratio MM 1.2 AV Cusp Separation MM 2.3 cm DOPPLER AV Peak Velocity 145.0 cm/s LVOT Peak Velocity 119.0 cm/s AV Area Cont Eq vti 5.2 cm squared AV Area Cont Eq pk 4.7 cm squared MV Peak Velocity 117.0 cm/s MV Area PHT 2.6 cm squared Mitral E to A Ratio 0.0 TV Peak E Velocity 51.0 cm/s PV Peak Velocity 101.0 cm/s FINDINGS Left Ventricle Left ventricle is normal size. LV systolic normal with EF of 55-60%. No regional wall motion abnormalities are seen. Right Ventricle Normal in size and function Right Atrium Normal in size Left Atrium Dilated Mitral Valve Mild to moderate mitral annular calcification. Mild mitral regurgitation. Aortic Valve Structurally normal aortic valve. No significant stenosis or regurgitation. Tricuspid Valve Insufficient TR jet to calculate RVSP Pulmonic Valve Not well visualized Pericardium Normal Aorta Ascending aorta is dilated with diameter of 4.04cm IVC Appears to be normal CONCLUSIONS LV systolic function is normal with EF of 55-60%. Left atrial dilation Mild mitral regurgitation Ascending aorta is dilated with diameter of 4.04cm Lance Feliz MD (Electronically Signed) Final Date: 11 Feb 2024 10:13 S
--- NOTE | 2024-02-10 19:11 | ECG_ITS ---
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 Measurements Intervals [place] Rate: 87 P: 0 [place]: 0 QRS: 28 QRSD: 122 T: 91 QT: 343 QTc: 414 Interpretive Statements ATRIAL FIBRILLATION MODERATE INTRAVENTRICULAR CONDUCTION DELAY [110+ ms QRS DURATION] NONSPECIFIC T-WAVE ABNORMALITY Compared to ECG 02/10/2024 15:04:20 Intraventricular conduction delay now present T-wave abnormality now present Myocardial infarct finding no longer present Electronically Signed On 02-11-2024 17:52:43 CDT by Lance Feliz M.D. [id number]
[2024-02-10 19:15] LABS: Platelet Count 139 10^3/cmm (157-399)
[2024-02-10 19:21] LABS: Thyroid Stimulating Hormone 1.84 uIU/mL (0.27-4.20); Vitamin B12 675 pg/mL (232-1245)
[2024-02-10 19:27] LABS: INR 0.96 (0.8-1.2)
[2024-02-10 19:28] LABS: Fibrinogen 456 mg/dL (174-498); Partial Thromboplastin Time 29.6 SECONDS (23.9-36.7)
[2024-02-10] MEDS: oxyCODONE 5 mg IR Tab/Cap PO (20:26)
[2024-02-10] MEDS: metoprolol tartrate 25 mg Tablet PO (20:26)
[2024-02-10] MEDS: enoxaparin 40 mg/0.4 mL Syringe SUBCUT (20:26)
[2024-02-10 22:34] LABS: ABG PH Result 7.29 (7.35-7.45); Arterial Blood Gas Hematocrit 52.4 % (42-52); Base Excess ABG 2.7 mmol/L (-2.0-2.0); Blood Gas Allen Test Pos; Blood Gas Sample Site Brachial, right; Blood Gas Sample Type Arterial; Oxygen Device NC; PO2 ABG 74.3 mmHg (80.0-100.0); PO2 FiO2 Ratio Arterial Blood 0
[2024-02-10 22:36] LABS: ABG PCO2 67.4 mmHg (35-45)
[2024-02-11] VITALS (32 sets, daily range): BP systolic 92–146; BP diastolic 53–102; PULSE 78–123; RESP 14–26; TEMP 36.6–37.1; O2SAT 85–96
[2024-02-11] MEDS: oxyCODONE 5 mg IR Tab/Cap PO ×4 (03:28→22:28)
[2024-02-11 04:25] LABS: ABG PH Result 7.31 (7.35-7.45); Arterial Blood Gas Hematocrit 50.7 % (42-52); Base Excess ABG 3.4 mmol/L (-2.0-2.0); Blood Gas Allen Test Pos; Blood Gas Sample Site Radial, left; Blood Gas Sample Type Arterial; Blood Gas Tidal Volume 0.46; HCO3 ABG 32.1 mmol/L (22-26); Oxygen Device BIPAP; PO2 ABG 81.8 mmHg (80.0-100.0); PO2 FiO2 Ratio Arterial Blood 0
[2024-02-11 04:45] LABS: Basophils % 0.2 %; Hematocrit 51.7 % (37-53); Lymphocytes # 0.7 10^3/uL (0.8-4.8); Lymphocytes % 11.1 %; Mean Corpuscular HGB Conc 31.7 g/dL (30-55); Mean Corpuscular Hemoglobin 31.1 pg (27-33); Mean Corpuscular Volume 97.9 fl (82-101); Mean Platelet Volume 9.8 fL (7.4-10.4); Monocytes # 0.2 10^3/uL (0.2-0.9); Monocytes % 2.3 %; Neutrophils # 5.66 10^3/uL (1.8-7.7); Neutrophils % 86.1 %; Nucleated Red Blood Cells % 0 %; Platelet Count 150 10^3/cmm (157-399); Red Blood Count 5.28 10^6/uL (3.85-5.65); Red Cell Distribution Width 14.4 % (12.1-15.1); White Blood Count 6.57 10^3/uL (3.29-11.43)
[2024-02-11 05:05] LABS: Alanine Aminotransferase 17 U/L (0-41); Albumin Level 3.6 g/dL (3.5-5.2); Alkaline Phosphatase 64 U/L (40-130); Anion Gap 14.7 (5-19); Aspartate Amino Transferase 17 U/L (0-40); Blood Urea Nitrogen 12 mg/dL (8-23); C Reactive Protein 62.2 mg/L (0.0-4.9); Calcium 9.1 mg/dL (8.5-10.5); Carbon Dioxide 30 mmol/L (22-29); Chloride 98 mmol/L (98-107); Creatinine Clr Calc Pharmacy 91.2374; Globulin 3.3 g/dL (1.3-4.6); Glomerular Filtration Rate 74.1 mL/min (90-130); Glucose 207 mg/dL (65-115); Osmolality Calculated 290 mOsm/kg (285-295); Phosphorus 2.8 mg/dL (2.5-4.5); Potassium 5.7 mmol/L (3.5-5.1); Sodium 137 mmol/L (136-145); Total Bilirubin 0.4 mg/dL (0.15-1.2); Total Protein 6.9 g/dL (6.6-8.7)
--- NOTE | 2024-02-11 05:27 | PC.NURSE ---
Elevated Potassium: Notified Dr. Carter of elevated Potassium @5491. New order to give scheduled 0900 lasix NOW and 15g Kayexalate PO ONCE NOW. Recheck BMP @0900.
[2024-02-11] MEDS: sodium polystyrene sulfonate 15 gm/60 mL Btl PO (05:40)
[2024-02-11] MEDS: FUROsemide 20 mg Tablet PO (05:40)
[2024-02-11] MEDS: cefTRIAXone 1,000 MG in sodium chloride 0.9% (plus) 50 ML 100 MG IV (08:28)
[2024-02-11] MEDS: azithromycin 250 mg Tablet 500 MG PO (08:28)
[2024-02-11] MEDS: digoxin 125 mcg Tablet PO (08:29)
[2024-02-11] MEDS: allopurinol 300 mg Tablet PO (08:29)
[2024-02-11] MEDS: metoprolol tartrate 25 mg Tablet PO ×2 (08:29→20:35)
[2024-02-11 11:05] LABS: Anion Gap 12.7 (5-19); Blood Urea Nitrogen 13 mg/dL (8-23); Calcium 8.9 mg/dL (8.5-10.5); Carbon Dioxide 31 mmol/L (22-29); Chloride 97 mmol/L (98-107); Creatinine Clr Calc Pharmacy 121.8307; Glomerular Filtration Rate 83.7 mL/min (90-130); Glucose 233 mg/dL (65-115); Osmolality Calculated 290 mOsm/kg (285-295); Potassium 4.7 mmol/L (3.5-5.1); Sodium 136 mmol/L (136-145)
--- NOTE | 2024-02-11 13:03 | P.PN_ITS ---
Subjective 2 Subjective: Patient is doing well I would like to get BiPAP approved Will transfer out of ICU Get overnight pulse ox Will discharge tomorrow if we are able to get BiPAP approval Vitals/I&O/Wt Last Vital Signs Temp 97.8 F 02/11/24 08:00 Pulse 92 02/11/24 11:00 Resp 21 H 02/11/24 11:00 BP 106/60 02/11/24 11:00 Pulse Ox 94 02/11/24 11:00 O2 Del Method Nasal Cannula 02/11/24 11:00 O2 Flow Rate 3 02/11/24 11:00 FiO2 40 02/11/24 04:01 02/10/24 02/11/24 02/11/24 22:59 06:59 14:59 Intake Total 1442 / 1442 1030 / 2472 450 / 450 Output Total 1000 / 1000 325 / 1325 725 / 725 Balance 442 / 442 705 / 1147 -275 / -275 Weight last 48 hrs Weight 147.78 kg Weight 101.106 kg Weight 142.882 kg Physical Exam 2 Narrative: Right-sided pain Nonfocal neuroexam Awake and alert Currently on r 3 L nasal cannula Hemodynamically stable Pleasant cough S1, S2 Colostomy bag in place which was emptied this morning Data 02/11/24 04:19 02/11/24 10:24 A&P Assessment and plan (1) Afib: Qualifiers: Atrial fibrillation type: longstanding persistent Qualified Code(s): I 48.11 - Longstanding persistent atrial fibrillation (2) Prolonged bleeding time: (3) Low testosterone in male: (4) Liver mass: (5) Liver lesion: (6) Colon cancer screening: (7) Polycythemia: (8) Acute respiratory failure with hypoxia and hypercapnia: (9) Obstructive sleep apnea: Plan Plan to discharge tomorrow if BiPAP is approved Will request overnight pulse ox Pain well Right-sided right upper quadrant pain is related to hepatic metastatic lesion Will request records from oncology clinic to compare the size As of now our CT scan is being compared with previous imaging report which is showing progression of metastatic lesion patient is stating that he recently had ablation and PET scan showed improvement in cancerous lesions Full code Transfer out of ICU to [facility] Overnight pulse ox requested No Rester distress Continue regular diet continue antibiotics for 1 more day Attestations 2 Medical Necessity Statement*: Possible discharge tomorrow Diagnoses Longstanding persistent atrial fibrillation I48.11 Atrial fibrillation type: longstanding persistent Prolonged bleeding time R79.1 Low testosterone in male R79.89 Liver mass R16.0 Liver lesion K76.9 Colon cancer screening Z12.11 Polycythemia D75.1 Acute respiratory failure with hypoxia and hypercapnia J96.01; J96.02 Obstructive sleep apnea G47.33
--- NOTE | 2024-02-11 17:29 | US_ITS ---
WS: [id number] RIGHT UPPER QUADRANT ULTRASOUND HISTORY: Right upper quadrant pain COMPARISON: 07/19/2022 Liver: 21.2 cm in length. Markedly enlarged liver. The entire liver is not well visualized. There is attenuation throughout the liver. Reidentified is a mass in the RIGHT lobe of the liver measuring 6.1 x 5.4 x 4.8 cm. Mass is difficult to evaluate due to the patient's body habitus. This mass has been previously described and very similar in appearance to 02/10/2024 CT. As per history known metastatic lesion. Portal Vein: Normal hepatopetal flow with monophasic waveform. Gallbladder: Normally distended gallbladder with no stones or wall thickening. CBD: 0.4 cm Pancreas: Obscured. Right kidney: 11.6 cm in length. Normal size. There is a subtle cortical area of decreased attenuatio n involving the RIGHT kidney which is probably the residual of the previously described subcapsular h ematoma. No obstruction. Aorta and IVC: Unremarkable abdominal aorta and IVC. No ascites. US/US gall bladder 19841 IMPRESSION: 1. Overall quality this examination is compromised by patient's body habitus. 2. Negative gallbladder. 3. Reidentified mass in the RIGHT lobe of the liver measures 6.1 x 5.4 x 4.8 c m. Patient has known metastatic disease. 4. Slight change in density involving the subcapsular RIGHT kidney. Patient jaeger s a known subcapsular hematoma.
--- NOTE | 2024-02-11 18:21 | PC.NURSE ---
Shift SUmmary: Uneventful shift. Up to a chair for about 6 hours today. Down to 3 L NC. Did all care for colostomy himself, ostomy is pink/normal in appearance and functioning normally. Overnight Pulse ox study ordered for tonight. 2 faxes and 1 efax sent to [facility] requesting medical records, waiting on response. Needing to recieve scans of liver tumor to compare out CT results with most recent scan.
--- NOTE | 2024-02-11 18:24 | PC.NURSE ---
Transferred to [facility] near end of shift. Nurse duval took over care. Belongings sent with patient include, clothing, shoes, crutches, cellphone, 2 chargers, and home ostomy supplies.
[2024-02-11] MEDS: enoxaparin 40 mg/0.4 mL Syringe SUBCUT (20:29)
[2024-02-11] MEDS: acetaminophen 500 mg Tablet PO (22:29)
[2024-02-12] VITALS (13 sets, daily range): BP systolic 132–153; BP diastolic 79–95; PULSE 66–94; RESP 16–24; TEMP 36.8–36.9; O2SAT 90–97; BMI 39.6
--- NOTE | 2024-02-12 06:30 | PC.RESP ---
Patient was started on overnight pulse ox at 2117. Patient was not ready to go to bed so the overnight pulse ox study was not officially started until 2335, patient was placed on room air at this time. Patient dropped to 88% and below at 0029 and was then placed on bipap at 0035. Overnight pulse ox study was ended at 0625.
--- NOTE | 2024-02-12 06:39 | PC.RESP ---
Overnight pulse ox study was placed on patient at 8, patient was not ready for bed at this time so the official study did not begin until 2336, at which time patient was placed on room air. Patient's O2 dropped below 88% at 0029 and remained for greater than 5 minutes. Patient was placed on bipap at 0035. Overnight pulse ox study was ended at 0620.
[2024-02-12] MEDS: FUROsemide 20 mg Tablet PO (08:30)
[2024-02-12] MEDS: allopurinol 300 mg Tablet PO (08:30)
[2024-02-12] MEDS: digoxin 125 mcg Tablet PO (08:30)
[2024-02-12] MEDS: azithromycin 250 mg Tablet 500 MG PO (08:30)
[2024-02-12] MEDS: potassium chloride ER 10 mEq Tablet PO (08:30)
[2024-02-12] MEDS: sennosides-docusate Tablet 1 TAB PO (08:31)
[2024-02-12] MEDS: cefTRIAXone 1,000 MG in sodium chloride 0.9% (plus) 50 ML 100 MG IV (08:31)
[2024-02-12] MEDS: metoprolol tartrate 25 mg Tablet PO ×2 (08:31→21:32)
[2024-02-12] MEDS: oxyCODONE 5 mg IR Tab/Cap PO ×3 (08:33→21:20)
[2024-02-12] MEDS: benzonatate 100 mg Capsule 200 MG PO (08:33)
[2024-02-12] MEDS: fixodent 39 gm Tube 1 APPLIC DENTAL (08:33)
--- NOTE | 2024-02-12 12:11 | P.PN_ITS ---
Subjective 2 Subjective: Patient showing signs of obstructive sleep apnea he does have history of restrictive lung disease Patient will need BiPAP at home Will get this approval BiPAP settings IPAP 16, EPAP 8, respirate 14, FiO2 40% Patient will also need home oxygen evaluation He will not be able to get BiPAP from [email or web address]. AAA 4 cm Vitals/I&O/Wt Last Vital Signs Temp 98.4 F 02/12/24 08:00 Pulse 94 02/12/24 09:24 Resp 17 02/12/24 09:24 BP 132/79 02/12/24 08:00 Pulse Ox 90 02/12/24 09:24 O2 Del Method Room Air 02/12/24 09:24 O2 Flow Rate 3 02/12/24 08:00 FiO2 40 02/12/24 03:18 02/11/24 02/12/24 02/12/24 22:59 06:59 14:59 Intake Total 360 / 1010 580 / 1590 290 / 290 Output Total 725 / 1450 300 / 1750 150 / 150 Balance -365 / -440 280 / -160 140 / 140 Weight last 48 hrs Weight 147.78 kg Weight 147.78 kg Weight 101.106 kg Physical Exam 2 Narrative: Pleasant cooperative Laying supine Currently on room air Nonfocal neuroexam GCS 15 Hemodynamically stable Euvolemic Still coming right-sided flank pain Data 02/11/24 04:19 02/11/24 10:24 Micro: Microbiology 02/11/24 19:25 Gram Stain - Final Sputum - Expectorated Sputum A&P Assessment and plan (1) Hypertension: Qualifiers: Hypertension type: primary hypertension Qualified Code(s): I10 - Essential (primary) hypertension (2) Cardiomegaly: (3) Afib: Qualifiers: Atrial fibrillation type: longstanding persistent Qualified Code(s): I 48.11 - Longstanding persistent atrial fibrillation (4) Prolonged bleeding time: (5) Liver mass: (6) Metastases to the liver: (7) History of colon cancer: Plan Patient doing well, no significant pain, family service caseworker updated regarding BiPAP approval Patient has overnight hypoxia Sleep apnea Hypoxic hypercapnic respite failure underlying restrictive lung disease Currently on room air Blood pressure stable A-fib without RVR Will add Xarelto for tomorrow Will request records to compare metastatic lesions Attestations 2 Medical Necessity Statement*: Ready to be discharged once we get BiPAP approval Diagnoses Primary hypertension I10 Hypertension type: primary hypertension Cardiomegaly I51.7 Longstanding persistent atrial fibrillation I48.11 Atrial fibrillation type: longstanding persistent Prolonged bleeding time R79.1 Liver mass R16.0 Metastases to the liver C78.7 History of colon cancer Z85.038
--- NOTE | 2024-02-12 12:24 | PC.SOCIAL ---
IMM Update pg 2 of IMM updated and reviewed w/ patient. Copy provided and copy dated, initialed and placed in chart.
[2024-02-13] VITALS (7 sets, daily range): BP systolic 142–159; BP diastolic 81–96; PULSE 75–99; RESP 16–20; TEMP 36.7–37.1; O2SAT 91–98
[2024-02-13] MEDS: trazodone 150 mg Tablet 300 MG PO
[2024-02-13 04:34] LABS: Blood Gas Allen Test Pos; Blood Gas Sample Site Not specified; Blood Gas Sample Type Venous; HCO3 VBG 33.9 mmol/L (24-28); Oxygen Device BIPAP; PCO2 VBG 54.8 mmHg (41-51); Venous Blood Gas Hematocrit 51.2 % (42-52)
[2024-02-13] MEDS: potassium chloride ER 10 mEq Tablet PO (09:36)
[2024-02-13] MEDS: sennosides-docusate Tablet 1 TAB PO (09:36)
[2024-02-13] MEDS: FUROsemide 20 mg Tablet PO (09:36)
[2024-02-13] MEDS: allopurinol 300 mg Tablet PO (09:37)
[2024-02-13] MEDS: azithromycin 250 mg Tablet 500 MG PO (09:37)
[2024-02-13] MEDS: digoxin 125 mcg Tablet PO (09:37)
[2024-02-13] MEDS: metoprolol tartrate 25 mg Tablet PO (09:37)
[2024-02-13] MEDS: rivaroxaban 10 mg Tablet 20 MG PO (09:37)
--- NOTE | 2024-02-13 09:57 | PM.DCS ---
Discharge Providers Date of Admission: 02/10/24 17:21 Date of Discharge: February 13, 2024 Attending Provider at Admission: Uche Collier MD Attending Provider at Discharge: Uche Collier MD Primary Care Provider: Al Álvarez MD Diagnoses at Discharge Discharge Diagnosis (1) Hypertension: Status: Chronic Qualifiers: Hypertension type: primary hypertension Qualified Code(s): I10 - Essential (primary) hypertension (2) Cardiomegaly: Status: Acute (3) Afib: Status: Acute Qualifiers: Atrial fibrillation type: longstanding persistent Qualified Code(s): I48.11 - Longstanding persistent atrial fibrillation (4) Prolonged bleeding time: Status: Acute (5) Liver mass: Status: Acute (6) Metastases to the liver: Status: Acute (7) History of colon cancer: Status: Acute Reason for Visit Reason for Visit: right side abd pain Hospital Course Hospital Course 69-year male who presented to hospital for right upper quadrant pain, patient carries history of 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, patient is undergoing treatment with ablation of metastatic lesion, in the hospital he was diagnosed with acute hypoxic hypercarbic respite failure with sleep apnea, we have started the process to get authorization to get him BiPAP, patient is also hyperventilating because of right upper quadrant pain there is no kidney stone no sign of hydronephrosis no signs of cholecystitis, I would not prescribe him antibiotics at the time of discharge, he may resume his analgesics at home, he is doing well on room air, I have asked him to use BiPAP overnight only with settings 16/8 respirate 14 FiO2 40% Overnight pulse ox did show sleep apnea he had significant respiratory acidosis. Patient is full code He is being discharged home with close follow-up with his oncologist. Please note patient is stating that he recently had ablation done on his liver and CAT scan which showed improvement in metastatic lesions, however our CT scan showed progression as compared to previous CT scan images we had in our system VBG on the day of discharge showed improvement in his pH, patient is on room air Pleasant cooperative Hyperventilation improved Please note he carries history of A-fib he has not taken his anticoagulating agent for at least a year I have resumed him back on Xarelto which she was taking before as well, no signs of coagulopathy Physical Exam Narrative: Pleasant cooperative Nonfocal neuroexam Tender right upper quadrant Pleasant and cooperative Currently on room air Hemodynamically stable Discharge Data Studies Completed and Pending Completed Studies During Hospitalization Category Date Time Status CT abdomen pelvis w con* [id number] Stat Cat Scan 02/10/24 11:27 Completed CTA chest [CT angio chest PE protcl [id number]] Stat Cat Scan 02/10/24 13:11 Completed CXRP [XR chest 1V portable [id number]] Stat Exams 02/10/24 12:00 Completed CV. echo complete* [id number] Routine Ultrasound 02/10/24 18:31 Completed US gall bladder [id number] Routine Ultrasound 02/11/24 17:29 Completed Pending at discharge Category Date Time Status Sputum Culture and Gram Stain Routine Lab 02/11/24 19:25 Results Radiology Impressions Abdomen/Pelvis CT 02/10/24 11:27 IMPRESSION: 1. Prior LEFT hemicolectomy with RIGHT lower quadrant colostomy. No evidence of bowel obstruction. 2. Progressed metastasis in the inferior RIGHT hepatic lobe described above. 3. Diffuse fatty infiltration of the liver. Hepatomegaly. 4. Previously described RIGHT subcapsular renal hematoma is decreased in size compared to the prior studies today measuring 4.6 cm. 5. No hydronephrosis in either kidney. 6. Enlarged prostate. 7. Extensive postoperative changes thoracic and lumbar spine Chest X-Ray 02/10/24 12:00 IMPRESSION: Cardiomegaly and cephalization of pulmonary blood flow suggesting pulmonary venous hypertension. No pulmonary edema at this time Chest CTA 02/10/24 13:11 IMPRESSION: 1. No evidence of pulmonary emboli. 2. Moderate chronic emphysematous changes with bibasilar atelectasis. No acute pulmonary infiltrates. 3. Cardiomegaly. 4. Prior extensive postoperative changes thoracic and lumbar spine. 5. Small esophageal hiatal hernia. 6. Multinodular enlarged LEFT thyroid. This is similar to the prior study. Gallbladder Ultrasound 02/11/24 17:29 IMPRESSION: 1. Overall quality this examination is compromised by patient's body habitus. 2. Negative gallbladder. 3. Reidentified mass in the RIGHT lobe of the liver measures 6.1 x 5.4 x 4.8 cm. Patient has known metastatic disease. 4. Slight change in density involving the subcapsular RIGHT kidney. Patient has a known subcapsular hematoma. Laboratory Results WBC 6.57 10^3/uL (3.29-11.43) 02/11/24 04:19 RBC 5.28 10^6/uL (3.85-5.65) 02/11/24 04:19 Hgb 16.40 g/dL (11.27-16.99) 02/11/24 04:19 Hct 51.7 % (37-53) 02/11/24 04:19 MCV 97.9 fl (82-101) 02/11/24 04:19 MCH 31.1 pg (27-33) 02/11/24 04:19 MCHC 31.7 g/dL (30-55) 02/11/24 04:19 RDW 14.4 % (12.1-15.1) 02/11/24 04:19 Plt Count 150 10^3/cmm (157-399) L 02/11/24 04:19 MPV 9.8 fL (7.4-10.4) 02/11/24 04:19 Neut % (Auto) 86.1 % 02/11/24 04:19 Lymph % (Auto) 11.1 % 02/11/24 04:19 [place] % (Auto) 2.3 % 02/11/24 04:19 Eos % (Auto) 0.0 % 02/11/24 04:19 Baso % (Auto) 0.2 % 02/11/24 04:19 Neut # (Auto) 5.66 10^3/uL (1.8-7.7) 02/11/24 04:19 Lymph # (Auto) 0.7 10^3/uL (0.8-4.8) L 02/11/24 04:19 [place] # (Auto) 0.2 10^3/uL (0.2-0.9) 02/11/24 04:19 Eos # (Auto) 0.0 10^3/uL (0.0-0.8) 02/11/24 04:19 Baso # (Auto) 0.0 10^3/uL (0.0-0.1) 02/11/24 04:19 Nucleated RBC % (auto) 0 % 02/11/24 04:19 Nucleated RBCs # 0.0 /100WBC 02/11/24 04:19 PT 13.10 SECONDS (12.1-14.9) 02/10/24 18:59 INR 0.96 (0.8-1.2) 02/10/24 18:59 APTT 29.6 SECONDS (23.9-36.7) 02/10/24 18:59 Fibrinogen 456 mg/dL (174-498) 02/10/24 18:59 Specimen Type Venous 02/13/24 04:27 Sample Site Not specified 02/13/24 04:27 ABG pH 7.31 (7.35-7.45) L 02/11/24 04:15 ABG pCO2 64.0 mmHg (35-45) H* 02/11/24 04:15 ABG pO2 81.8 mmHg (80.0-100.0) 02/11/24 04:15 ABG PO2/FiO2 Ratio 0 02/11/24 04:15 ABG HCO3 32.1 mmol/L (22-26) H 02/11/24 04:15 ABG Base Excess 3.4 mmol/L (-2.0-2.0) H 02/11/24 04:15 [place] Test Pos 02/13/24 04:27 VBG pH 7.40 (7.32-7.42) 02/13/24 04:27 VBG pCO2 54.8 mmHg (41-51) H 02/13/24 04:27 VBG pO2 80.0 mmHg (25-40) H 02/13/24 04:27 VBG HCO3 33.9 mmol/L (24-28) H 02/13/24 04:27 VBG Base Excess 7.0 mmol/L (-3.0-3.0) H 02/13/24 04:27 VBG Hematocrit 51.2 % (42-52) 02/13/24 04:27 Hematocrit 50.7 % (42-52) 02/11/24 04:15 O2 Delivery Device Bipap 02/13/24 04:27 O2 Liters/Min 4.0 % 02/10/24 22:30 FiO2 40.0 % 02/13/24 04:27 Tidal Volume 0.46 02/11/24 04:15 PEEP 8.0 cmH20 02/13/24 04:27 CPAP 8.0 cmH20 02/11/24 04:15 Rn Diabetes ID [email or web address] 02/13/24 04:27 Sodium 136 mmol/L (136-145) 02/11/24 10:24 Potassium 4.7 mmol/L (3.5-5.1) 02/11/24 10:24 Chloride 97 mmol/L (98-107) L 02/11/24 10:24 Carbon Dioxide 31 mmol/L (22-29) H 02/11/24 10:24 Anion Gap 12.7 (5-19) 02/11/24 10:24 BUN 13 mg/dL (8-23) 02/11/24 10:24 Creatinine 0.9 mg/dL (0.7-1.2) 02/11/24 10:24 GFR Calculation 83.7 mL/min (90-130) L 02/11/24 10:24 Glucose 233 mg/dL (65-115) H 02/11/24 10:24 Calculated Osmolality 290 mOsm/kg (285-295) 02/11/24 10:24 Calcium 8.9 mg/dL (8.5-10.5) 02/11/24 10:24 Phosphorus 2.8 mg/dL (2.5-4.5) 02/11/24 04:19 Magnesium 2.0 mg/dL (1.7-2.3) 02/11/24 04:19 Total Bilirubin 0.4 mg/dL (0.15-1.2) 02/11/24 04:19 AST 17 U/L (0-40) 02/11/24 04:19 ALT 17 U/L (0-41) 02/11/24 04:19 Alkaline Phosphatase 64 U/L (40-130) 02/11/24 04:19 Troponin T Baseline 26 ng/L (0-15) H 02/10/24 11:08 Troponin T 120 Minute 25.58 ng/L (0-15) H 02/10/24 13:51 Delta Troponin T -0.42 ABS# (0-10) L 02/10/24 13:51 Troponin T Hi Sens 6Hr 23.16 ng/L (0-15) H 02/10/24 17:18 Troponin T Hi Sens 6Hr Delta -2.84 ng/L (0-12) L 02/10/24 17:18 C-Reactive Protein 62.2 mg/L (0.0-4.9) H 02/11/24 04:19 NT-Pro-B Natriuret Pep 877 pg/mL (0-125) H 02/10/24 11:08 Total Protein 6.9 g/dL (6.6-8.7) 02/11/24 04:19 Albumin 3.6 g/dL (3.5-5.2) 02/11/24 04:19 Globulin 3.3 g/dL (1.3-4.6) 02/11/24 04:19 Lipase 32 U/L (13-60) 02/10/24 11:08 Vitamin B12 675 pg/mL (232-1245) 02/10/24 13:51 TSH 1.84 uIU/mL (0.27-4.20) 02/10/24 13:51 Urine Color Yellow (Yellow) 02/10/24 12:58 Urine Appearance Sl hazy (CLEAR) A 02/10/24 12:58 Urine pH 5 (5-7) 02/10/24 12:58 Ur Specific [place] 1.005 (1.005-1.030) 02/10/24 12:58 Urine Protein Trace (Negative) 02/10/24 12:58 Urine Glucose (UA) Norm (Normal) 02/10/24 12:58 Urine Ketones Negative (Negative) 02/10/24 12:58 Urine Blood Neg (Negative) 02/10/24 12:58 Urine Nitrate Negative (Negative) 02/10/24 12:58 Urine Bilirubin Neg (Negative) 02/10/24 12:58 Urine Urobilinogen Norm mg/dL (Negative) 02/10/24 12:58 Ur Leukocyte Esterase Negative (Negative) 02/10/24 12:58 Urine RBC None /hpf (0-2) 02/10/24 12:58 Urine WBC 0-4 /hpf (0-5) H 02/10/24 12:58 Ur Squamous Epith Cells 0-4 /hpf (0-5) H 02/10/24 12:58 Amorphous Sediment Not Reportable 02/10/24 12:58 Urine Bacteria Trace /hpf (NONE) 02/10/24 12:58 Digoxin 0.3 ng/mL (0.6-1.2) L 02/10/24 13:51 Vitals Last Vital Signs Temp 98.0 F 02/13/24 07:50 Pulse 99 02/13/24 09:37 Resp 16 02/13/24 08:48 BP 142/81 02/13/24 07:50 Pulse Ox 91 02/13/24 08:48 O2 Del Method Room Air 02/13/24 08:48 O2 Flow Rate 3 02/12/24 08:00 FiO2 40 02/13/24 04:15 Discharge Plan Discharge Patient Disposition: Home Condition: Stable Prescriptions: New Xarelto 10 mg Tablet 20 mg PO DAILY Qty: 60 0RF Continued allopurinol 300 mg tablet 300 mg PO DAILY multivitamin Tablet 6 tab PO DAILY@2200 lycopene 10 mg capsule 10 mg PO DAILY resveratrol 250 mg capsule 250 mg PO QPM saw palmetto 500 mg capsule 500 mg PO DAILY lovastatin 40 mg tablet 40 mg PO BEDTIME testosterone cypionate 200 mg/mL oil 120 mg IM Q7D Qty: 10 5RF Rx Instructions: ON TUESDAYS metoprolol tartrate 25 mg tablet 25 mg PO Q12H 30 Days Qty: 180 3RF potassium chloride 10 mEq tablet extended release 10 meq PO DAILY Qty: 90 2RF Hold Instructions: Resume on 10/14/23. furosemide 20 mg tablet 20 mg PO DAILY Qty: 90 2RF Hold Instructions: Resume on 10/14/23. digoxin 125 mcg (0.125 mg) tablet 125 mcg PO DAILY Qty: 90 3RF sennosides [senna] 8.6 mg Tablet 8.6 mg PO DAILY PRN (Reason: Constipation) loratadine [Claritin] 10 mg tablet 10 mg PO DAILY PRN (Reason: ALLERGIES) acetaminophen 500 mg Tablet 500 mg PO Q6H PRN (Reason: Pain) trazodone 150 mg tablet 300 mg PO BEDTIME cholecalciferol (vitamin D3) [Vitamin D3] 10 mcg (400 unit) Capsule 10 mcg PO DAILY melatonin 5 mg Tablet 10 mg PO BEDTIME ketoconazole 2 % shampoo 1 applic TOPICAL DAILY PRN (Reason: Rash) gabapentin 300 mg capsule 300 mg PO TID hydrocortisone 2.5 % cream See Rx Instructions .ROUTE .COMPLEX Rx Instructions: MIX WITH EQUAL PARTS WITH KETOCONAZOLE CREAM AND APPLY RASH ON FACE, SCALP AND EARS TWICE DAILY WHEN RASH IS PRESENT ketoconazole 2 % cream See Rx Instructions .ROUTE .COMPLEX Rx Instructions: MIX WITH EQUAL PARTS WITH HYDROCORTISONE AND APPLY TO RASH ON FACE, SCALP AND EARS TWICE DAILY NEEDED testosterone 1.62 % (40.5 mg/2.5 gram) gel in packet 1 packet topical DAILY Discharge Orders: Discharge Order (Routine); Ordered 02/13/24 Ordered By: Uche Collier Other Ambulatory Orders: DME: BIPAP (Order) Location: None Selected Ordered By: Uche Collier Referrals: [facility] [Outside] (This is the company that is obtaining auth for your BIPAP. ) Al Álvarez MD [Primary Care Provider] - 02/21/24 3:00 pm Patient Instructions: Rivaroxaban (By mouth), Hypoxia (GEN), Opioid Safety Discharge Attestations Time Spent in Discharge Care*: greater than 30 min Quality Metrics Clinical Quality Measures [ No reported AMI, CVA or VTE this stay] Coding Level of Care Code Acute Code for Chg Fwd Diagnoses Primary hypertension I10 Hypertension type: primary hypertension Cardiomegaly I51.7 Longstanding persistent atrial fibrillation I48.11 Atrial fibrillation type: longstanding persistent Prolonged bleeding time R79.1 Liver mass R16.0 Metastases to the liver C78.7 History of colon cancer Z85.038
== END 2024-02-13 09:55 | disposition home or self-care (01) | DRG 189 ==
LOC: ER 15:12 → MEDSURG 17:24 → ER IP 17:41 → ICU 17:47 → MEDSURG 02-11 17:59
PROVIDERS: Family Medicine; Physician Assistant; Admitting Provider Internal Medicine; Emergency Provider Emergency Medicine; PCP Family Medicine; Visit Provider Internal Medicine
DX: J96.02 Acute respiratory failure with hypercapnia (principal); C78.7 Secondary malignant neoplasm of liver and intrahepatic bile duct; F84.5 Asperger's syndrome; I48.11 Longstanding persistent atrial fibrillation; J96.01 Acute respiratory failure with hypoxia; Z87.891 Personal history of nicotine dependence; Z85.038 Personal history of other malignant neoplasm of large intestine; Z93.3 Colostomy status; M19.90 Unspecified osteoarthritis, unspecified site; Z86.16 Personal history of COVID-19; M10.9 Gout, unspecified; E78.5 Hyperlipidemia, unspecified; M47.816 Spondylosis without myelopathy or radiculopathy, lumbar region; G47.33 Obstructive sleep apnea (adult) (pediatric); E66.9 Obesity, unspecified; Z68.37 Body mass index [BMI] 37.0-37.9, adult; R79.1 Abnormal coagulation profile; G89.4 Chronic pain syndrome; D75.1 Secondary polycythemia; I10 Essential (primary) hypertension; M41.9 Scoliosis, unspecified; E29.1 Testicular hypofunction; Z79.01 Long term (current) use of anticoagulants; E04.2 Nontoxic multinodular goiter; I51.7 Cardiomegaly; J98.4 Other disorders of lung
CPT/HCPCS: 36415; 36600; 71045; 71275; 74177; 76705; 80048; 80053; 80162; 81001; 82607; 82803; 83690; 83735; 83880; 84100; 84443; 84484; 85025; 85049; 85384; 85610; 85730; 86140; 87070; 87077; 87186; 87205; 93005; 93306; 94640; 94660; 94762; 96372; 96374; 96375; 96376; 99285; J0696; J1170; J1650; J2405; J2919; Q0144; Q9967

== ENCOUNTER 2024-03-04 07:41 | Oncology outpatient (recurring) (ONCR) | payer MEDICARE, SELFPAY ==
[2024-03-04 08:30] LABS: Basophils # 0.1 10^3/uL (0.0-0.1); Basophils % 0.8 %; Eosinophils # 0.2 10^3/uL (0.0-0.8); Lymphocytes # 1.5 10^3/uL (0.8-4.8); Lymphocytes % 24.5 %; Mean Corpuscular HGB Conc 32.4 g/dL (30-55); Mean Corpuscular Hemoglobin 30.9 pg (27-33); Mean Corpuscular Volume 95.2 fl (82-101); Mean Platelet Volume 9.9 fL (7.4-10.4); Monocytes # 0.6 10^3/uL (0.2-0.9); Monocytes % 9.1 %; Neutrophils # 3.65 10^3/uL (1.8-7.7); Neutrophils % 60.6 %; Nucleated Red Blood Cells % 0 %; Platelet Count 192 10^3/cmm (157-399); Red Blood Count 5.25 10^6/uL (3.85-5.65); Red Cell Distribution Width 14.9 % (12.1-15.1); White Blood Count 6.03 10^3/uL (3.29-11.43)
[2024-03-04 08:52] LABS: Alanine Aminotransferase 21 U/L (0-41); Albumin Level 3.8 g/dL (3.5-5.2); Alkaline Phosphatase 61 U/L (40-130); Aspartate Amino Transferase 20 U/L (0-40); Blood Urea Nitrogen 15 mg/dL (8-23); Calcium 9.1 mg/dL (8.5-10.5); Carbon Dioxide 24 mmol/L (22-29); Chloride 103 mmol/L (98-107); Globulin 3.3 g/dL (1.3-4.6); Glomerular Filtration Rate 74.1 mL/min (90-130); Glucose 152 mg/dL (65-115); Osmolality Calculated 292 mOsm/kg (285-295); Sodium 139 mmol/L (136-145); Total Bilirubin 0.3 mg/dL (0.15-1.2); Total Protein 7.1 g/dL (6.6-8.7)
[2024-03-04 08:58] LABS: Carcinoembryonic Antigen 306.5 ng/mL (0.0-4.7)
[2024-03-04 09:16] LABS: Anion Gap 16.5 (5-19); Potassium 4.5 mmol/L (3.5-5.1)
== END 2024-03-29 23:59 | disposition home or self-care (01) ==
PROVIDERS: PCP Family Medicine; Visit Provider Internal Medicine Medical Oncology
DX: C18.5 Malignant neoplasm of splenic flexure (principal); Z93.3 Colostomy status; C78.7 Secondary malignant neoplasm of liver and intrahepatic bile duct; D64.9 Anemia, unspecified
CPT/HCPCS: 36415; 80053; 82378; 85025; 99214

== ENCOUNTER 2024-03-17 10:42 | Outpatient (CLI) | payer MEDICARE, SELFPAY ==
--- NOTE | 2024-03-17 10:30 | PETR_ITS ---
PROCEDURE INFORMATION: Exam: PET/CT Skull Base to Mid-thigh Exam date and time: 03/17/2024 10:45 AM Age: 69 years old Clinical indication: Condition or disease; Primary cancer: Colon cancer; Follow-up oncological assessment; Prior surgery; Surgery date: 6+ months; Surgery type: Lt hemicolectomy colostomy LABS AND CLINICAL REPORTS: Glucose: 125 mg/dl Treatment strategy for malignancy (PET staging): Restaging (PS) TECHNIQUE: Imaging protocol: Following at least four-hour fasting and following the injection of radiopharmaceutical, low dose CT images were obtained. Then, PET images were obtained. Attenuation corrected images were constructed using the CT scan. Fused images of PET and CT were reviewed. The standardized uptake values (SUV) reported below are maximum values within a region of interest, expressed in gm/ml. Exam includes orbital meatal line to mid-thigh. Radiopharmaceutical: 13.6 mCi F-18 FDG (Fluorodeoxyglucose), IV. Time of imaging post radiopharmaceutical administration: 1 hour Injection site: Left hand COMPARISON: CTA chest and CT abdomen and pelvis 02/10/2024, [id number] 12/10/2023 1:14 PM FINDINGS: Brain: Visualized brain has normal physiologic uptake. Pharynx: No abnormal uptake. Larynx: No abnormal uptake. Thyroid: Moderate asymmetric enlargement of the left thyroid lobe is noted without elevated uptake. This results in mild rightward tracheal deviation at the thoracic inlet with mild moderate narrowing of the tracheal lumen. Lungs, pleura and trachea: No abnormal uptake. Heart: Normal physiologic uptake. Mediastinal space: No abnormal uptake. Liver: Abnormal uptake in the right lobe of the liver is noted, SUV max 13.2 (previously 13.4) on PET series 12, image 156. No well-defined correlating lesion on the CT images is present however the degree avid distribution of abnormal uptake in this region appears more prominent. Assessment of the liver in this region is limited by streak artifact and lack of intravenous contrast. Gallbladder and bile ducts: No abnormal uptake. Pancreas: No abnormal uptake. Spleen: No abnormal uptake. Adrenal glands: No abnormal uptake. Kidneys and ureters: Normal physiologic uptake. An approximately 1 mm nonobstructing inferior right renal pole calculus is present. A non radiotracer avid hypodense structure arising from the superior pole of the left kidney measuring approximately 3.2 cm on series 3, image 147 likely represents a benign cyst. Stomach and bowel: There is evidence of partial left colectomy with a right lower quadrant colostomy site. A focus of abnormal uptake in the sigmoid colon is noted, SUV max 12.6 (previously 9.6) on series 12, image 210. There is a persistent abnormal ovoid soft tissue density in the sigmoid colon in this region measuring approximately 2.7 x 2.2 cm in the axial plane on series 3, image 208. This structure is located approximately 20 cm proximal to the anus. It is also identified on the comparison CT abdomen and pelvis of 02/10/2024. Vasculature: No abnormal uptake. Diffuse atherosclerotic calcifications are present including within the coronary arteries. Lymph nodes: Small non radiotracer avid calcified benign-appearing mediastinal and right hilar lymph nodes are present. Skeleton: No abnormal uptake in the visualized axial and appendicular skeleton. Degenerative changes in the spine are present. Postoperative changes of posterior fusion in the thoracic and lumbar spine are noted. There is a reverse-S shaped scoliotic curvature of the thoracolumbar spine. The bones appear demineralized. A bone graft harvest site involving the medial right iliac bone is present. Soft tissues: A small uncomplicated appearing fat containing left inguinal hernia is present. There is similar ovoid soft tissue density in the subcutaneous fat extending to the region of the medial left gluteus twin muscle measuring approximately 5.1 x 4.2 cm on series 3, image 226, SUV max 2.2 (remeasured on the prior PET-CT with an SUV max 2.2). METRICS: Mediastinal blood pool: SUV max 3.2 PET/PET skull to thigh SUBS [id number] IMPRESSION: 1. Persistent elevated uptake within the right lobe of the liver (SUV max 13.2, previously 13.4) with probable increase in size of the lesion compared with the prior PET-CT. 2. Persistent and increasing focus of elevated uptake (SUV max 12.6, previously 9.6) within a mass in the sigmoid colonic remnant highly concerning for malignancy. 3. No additional areas of radiotracer avid malignancy. 4. Non radiotracer avid enlargement of the left thyroid lobe is similar. 5. Similar low-level uptake in a region unchanged soft tissue density in the subcutaneous fat of the medial left gluteal region, likely inflammatory. 6. Additional nonurgent findings as detailed above.
== END 2024-03-17 10:43 | disposition home or self-care (01) ==
LOC: RAD 10:42
PROVIDERS: PCP Family Medicine; Visit Provider Internal Medicine Medical Oncology
DX: C18.5 Malignant neoplasm of splenic flexure (principal); E04.9 Nontoxic goiter, unspecified; K76.89 Other specified diseases of liver; N20.0 Calculus of kidney; Z98.890 Other specified postprocedural states; I89.8 Other specified noninfective disorders of lymphatic vessels and lymph nodes; M43.25 Fusion of spine, thoracolumbar region; M43.8X5 Other specified deforming dorsopathies, thoracolumbar region; K40.90 Unilateral inguinal hernia, without obstruction or gangrene, not specified as recurrent
CPT/HCPCS: 78815; A9552

== ENCOUNTER → 2024-04-20 14:16 | Outpatient (BNVA) | payer MEDICARE, SELFPAY | PROVIDERS: PCP Family Medicine; Visit Provider Internal Medicine Cardiovascular Disease | DX: I48.11 Longstanding persistent atrial fibrillation (principal); E78.5 Hyperlipidemia, unspecified; I95.1 Orthostatic hypotension; I11.9 Hypertensive heart disease without heart failure; Z79.01 Long term (current) use of anticoagulants | CPT/HCPCS: 99214 ==

== ENCOUNTER → 2024-05-22 09:16 | Outpatient (BNVA) | payer MEDICARE, SELFPAY | PROVIDERS: PCP Family Medicine; Visit Provider Nurse Practitioner Family | DX: I48.11 Longstanding persistent atrial fibrillation (principal); I10 Essential (primary) hypertension; Z87.891 Personal history of nicotine dependence | CPT/HCPCS: 99214 ==

== ENCOUNTER 2024-05-27 12:26 | Emergency (ER) | payer MEDICARE, SELFPAY ==
[2024-05-27 13:08] VITALS: BP 105/69; PULSE 120; RESP 18; TEMP 36.9; O2SAT 98; BMI 48.4
--- NOTE | 2024-05-27 13:10 | XR_ITS ---
WS: [id number] Exam: XR foot RT min 3V* [id number] Date/Time of Exam: 05/27/2024 1:26 PM Reason For Exam: infected toe No acute fracture or bone destruction identified. Early degenerative narrowing of the first MP joint and midfoot joints. Calcaneal spurs. Calcification noted in the plantar aponeurosis. XR/XR foot RT min 3V* [id number] IMPRESSION: 1. No acute fracture or bone destruction noted. 2. Degenerative changes and additional minor findings as above.
--- NOTE | 2024-05-27 13:35 | ED_ITS ---
HPI - Extremity Problem 2 General: Chief complaint: Wound/Laceration Stated complaint: infected toe right foot Time Seen by Provider: 05/27/24 13:09 Source: patient Mode of arrival: ambulatory Limitations: no limitations History of Present Illness: Patient is a 69-year-old male who presents to ED today with a concern of an infection to his right toe. Patient states he was seen by primary care 2 days ago and placed on Augmentin. He feels like toe appears worse. Denies any known injury or trauma. He is not having any systemic symptoms such as fevers, chills, body aches. He arrives in no acute distress. Patient is not a diabetic. States he is not immunocompromised. MD Complaint: other (possible toe infection) Location: right and toe Radiation: none Relieving factors: nothing Exacerbating factors: nothing Associated symptoms: Reports no associated symptoms; Deny fever(s) Related Data Home Medications Medication Instructions Recorded Confirmed allopurinol 300 mg tablet 300 mg PO DAILY 10/15/19 05/22/24 multivitamin 6 tab PO DAILY@2200 10/15/19 05/22/24 sennosides 8.6 mg tablet (senna) 8.6 mg PO DAILY PRN Constipation 10/27/19 05/22/24 lycopene 10 mg capsule 10 mg PO DAILY 11/15/20 05/22/24 resveratrol 250 mg capsule 250 mg PO QPM 11/15/20 05/22/24 saw palmetto 500 mg capsule 500 mg PO DAILY 11/15/20 05/22/24 loratadine 10 mg tablet (Claritin) 10 mg PO DAILY PRN ALLERGIES 11/21/21 05/22/24 ketoconazole 2 % shampoo 1 applic topical DAILY PRN Rash 07/18/22 05/22/24 acetaminophen 500 mg tablet 500 mg PO Q6H PRN Pain 10/09/22 05/22/24 cholecalciferol (vitamin D3) 10 10 mcg PO DAILY 10/09/22 05/22/24 mcg (400 unit) capsule (Vitamin D3) melatonin 5 mg tablet 10 mg PO BEDTIME 10/09/22 05/22/24 trazodone 150 mg tablet 300 mg PO BEDTIME 10/09/22 05/22/24 gabapentin 300 mg capsule 300 mg PO TID 02/04/23 05/22/24 lovastatin 40 mg tablet 40 mg PO BEDTIME 02/05/23 05/22/24 hydrocortisone 2.5 % topical cream See Rx Instructions .Route .COMPLEX 02/11/24 05/22/24 ketoconazole 2 % topical cream See Rx Instructions .Route .COMPLEX 02/11/24 05/22/24 testosterone 1.62 % (40.5 mg/2.5 1 packet topical DAILY 02/11/24 05/22/24 gram) transdermal gel packet levofloxacin 500 mg tablet 500 mg PO DAILY 03/04/24 05/22/24 rivaroxaban 20 mg tablet (Xarelto) 20 mg PO DAILY 03/04/24 05/22/24 Previous Rx's Medication Instructions Recorded testosterone cypionate 200 mg/mL 120 mg (0.6 mL) IM Q7D #10 mL 02/07/23 intramuscular oil digoxin 125 mcg (0.125 mg) tablet 125 mcg PO DAILY #90 tabs 06/07/23 metoprolol tartrate 25 mg tablet 25 mg PO Q12H 30 days #180 tabs 10/24/23 furosemide 20 mg tablet See Rx Instructions .Route 03/13/24 .COMPLEX #180 tabs Allergies Allergy/AdvReac Type Severity Reaction Status Date / Time oats Allergy DIARRHEA Verified 05/22/24 09:23 Opioids - Morphine Analogues Allergy ADR-Chest Verified 05/22/24 09:23 Pain caffeine AdvReac Unknown PALPITATION Verified 05/22/24 09:23 S apple AdvReac DIARRHEA, Verified 05/22/24 09:23 VOMITING AND CRAMPING meperidine [From Demerol] AdvReac EXCESSIVE Verified 05/22/24 09:23 SEDATION morphine AdvReac HALLUCINATI Verified 05/22/24 09:23 ONS berries Allergy Unknown Uncoded 05/22/24 09:23 raw tomatoes Allergy ADR-Gastrointestinal Uncoded 05/22/24 09:23 Upset FRYE AdvReac DIARRHEA Uncoded 05/22/24 09:23 Review of Systems 2 Const: Denies: fever(s), chills, body aches, fatigue or malaise Card: Reports: irregular heart rhythm (chronic atrial fibrillation) Resp: Denies: dyspnea GI: Denies: nausea or vomiting Musc: Reports: other (R toe redness/pain) Skin/Breast: Reports: other (redness R toe) Neuro: Reports: numbness in extremities (chronic LE neuropathy) [facility] ED 2 PFSH: Medical History Orthostatic hypotension Cardiomegaly Afib Hypertension Acute respiratory failure with hypoxia and hypercapnia Tubular adenoma of colon Prolonged bleeding time Metastases to the liver Elevated CEA Liver mass Goiter Colon cancer screening Liver lesion Polycythemia Low testosterone in male Ileus Colon cancer Osteoarthritis 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 (~08/2022) hospitalized in [place] Chronic sinusitis of both maxillary sinuses Gout Asperger syndrome mild Dyslipidemia Degenerative joint disease (DJD) of lumbar spine Obstructive sleep apnea Chronic low back pain Substernal goiter Asthma Restrictive lung disease due to kyphoscoliosis Suspected exposure to asbestos Allergies Right renal stone Testosterone deficiency On TRT for 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 Erectile dysfunction Opioid contract exists previous Chronic pain syndrome Surgical History Hx of bilateral cataract extraction History of colostomy (11/01/22) Colostomy revision for control of bleeding History of exploratory laparotomy (10/15/22) Exploratory laparotomy with partial colon resection and with end colostomy formation Status post left hemicolectomy (10/08/22) laparoscopic converted to open, with splenic flexure takedown and right colon mobilization, primary anastamosis History of back surgery History of shoulder surgery History of appendectomy H/O arthroscopic knee surgery H/O ankle fusion H/O wrist surgery S/P ureteral stent placement Family History Grandfather CAD (coronary artery disease) Family/Other Cancer Grandmother Dementia Stroke Mother Lung disease Other Hypertension Denies family history of Rheumatoid arthritis Diabetes Lupus Clotting disorder Hyperlipidemia Chronic kidney disease (CKD) Suicide Anesthesia complication Bleeding disorder Social History Smoking and tobacco/nicotine status: former use of tobacco/nicotine Quit status (tobacco/nicotine): has quit using Year quit tobacco: 1975 [id number] Second hand smoke exposure: Yes Alcohol intake: never Substance/Drug Use: never Lives independently: Yes Current occupational status: retired Pets and animals: Yes Do you think of yourself as: Straight/Heterosexual Current gender identity: Male Physical Exam 2 Const: COMMON NORMALS: no acute distress, patient oriented x3, no limitations, alert and well nourished GENERAL APPEARANCE: cooperative NUTRITIONAL APPEARANCE: obese (BMI is 48.4) Resp: COMMON NORMALS: normal respiratory effort and clear to auscultation bilaterally AUSCULTATION: clear to auscultation bilaterally Cardio: COMMON NORMALS: regular rate RATE: regular rate RHYTHM: abnormal rhythm irregularly irregular Extremity: COMMON NORMALS: full ROM, capillary refill normal, no joint enlargement, no clubbing, cyanosis or edema, no calf tenderness and no pedal edema GENERAL: Yes normal exam except as noted RIGHT LOWER EXTREMITY: Yes foot & digits Right foot and digits: Yes neurovascular exam (normal) OTHER: pt has a small area of purpuric like rash to dorsum of R second toe; non- blanching/does not appear cellulitic; no streaking; no edema or warmth; nails uniformly are hypertropic; no discharge from affected toenail or paronychia EXTREMITY IMAGE (FRONT): 1. small area measuring maybe 2cm to the dorsum of the R second toe Neuro: COMMON NORMALS: patient oriented x3 SENSORIUM/ORIENTATION: Yes alert Skin: NARRATIVE SKIN EXAM: see above Course 2 Vital Signs: Vital signs: Vital Signs Temperature 98.4 F 05/27/24 13:08 Pulse Rate 120 H 05/27/24 13:08 Respiratory Rate 18 05/27/24 13:08 Blood Pressure 105/69 05/27/24 13:08 Pulse Oximetry 98 05/27/24 13:08 Oxygen Delivery Me thod Room Air 05/27/24 13:08 MDM - Extremity (Nontraumatic) Medical Decision Making Skin rash to the dorsum of his right second toe does not appear cellulitic. Appears somewhat hemorrhagic. There is no evidence of necrosis. Toe is not warm to the touch. No ulcer formation. He arrives in no acute distress with stable vital signs. He was initially triaged with an elevated heart rate however during reexamination is in the 80s/90s. He does have a history of atrial fibrillation. Blood work overall is nonactionable. He has a normal white count. Some elevations to his inflammatory markers with unknown significance. His coags are normal. Patient has been on Augmentin over the past 2 days. Recommend he continue this. Recommend he watch toe closely over the next few days. Follow-up with primary care. Return to ED precautions given. Medical Records I reviewed the patient's medical records. Lab Data I reviewed the patient's lab results. 05/27/24 14:06 05/27/24 14:06 Radiology Impressions Foot X-Ray 05/27/24 13:10 IMPRESSION: 1. No acute fracture or bone destruction noted. 2. Degenerative changes and additional minor findings as above. Laboratory Results WBC 7.14 10^3/uL (3.29-11.43) 05/27/24 14:06 RBC 4.69 10^6/uL (3.85-5.65) 05/27/24 14:06 Hgb 15.20 g/dL (11.27-16.99) 05/27/24 14:06 Hct 45.7 % (37-53) 05/27/24 14:06 MCV 97.4 fl (82-101) 05/27/24 14:06 MCH 32.4 pg (27-33) 05/27/24 14:06 MCHC 33.3 g/dL (30-55) 05/27/24 14:06 RDW 14.0 % (12.1-15.1) 05/27/24 14:06 Plt Count 181 10^3/cmm (157-399) 05/27/24 14:06 MPV 9.6 fL (7.4-10.4) 05/27/24 14:06 Neut % (Auto) 64.2 % 05/27/24 14:06 Lymph % (Auto) 20.4 % 05/27/24 14:06 [place] % (Auto) 8.8 % 05/27/24 14:06 Eos % (Auto) 5.0 % 05/27/24 14:06 Baso % (Auto) 0.8 % 05/27/24 14:06 Neut # (Auto) 4.57 10^3/uL (1.8-7.7) 05/27/24 14:06 Lymph # (Auto) 1.5 10^3/uL (0.8-4.8) 05/27/24 14:06 [place] # (Auto) 0.6 10^3/uL (0.2-0.9) 05/27/24 14:06 Eos # (Auto) 0.4 10^3/uL (0.0-0.8) 05/27/24 14:06 Baso # (Auto) 0.1 10^3/uL (0.0-0.1) 05/27/24 14:06 Nucleated RBC % (auto) 0 % 05/27/24 14:06 Nucleated RBCs # 0.0 /100WBC 05/27/24 14:06 ESR 19 mm/hr (0-10) H 05/27/24 14:06 PT 14.10 SECONDS (12.1-14.9) 05/27/24 14:06 INR 1.05 (0.8-1.2) 05/27/24 14:06 APTT 31.2 SECONDS (23.9-36.7) 05/27/24 14:06 Sodium 136 mmol/L (136-145) 05/27/24 14:06 Potassium 4.8 mmol/L (3.5-5.1) 05/27/24 14:06 Chloride 98 mmol/L (98-107) 05/27/24 14:06 Carbon Dioxide 26 mmol/L (22-29) 05/27/24 14:06 Anion Gap 16.8 (5-19) 05/27/24 14:06 BUN 16 mg/dL (8-23) 05/27/24 14:06 Creatinine 1.2 mg/dL (0.7-1.2) 05/27/24 14:06 GFR Calculation 60.0 mL/min (90-130) L 05/27/24 14:06 Glucose 179 mg/dL (65-115) H 05/27/24 14:06 Calculated Osmolality 288 mOsm/kg (285-295) 05/27/24 14:06 Lactic Acid 2.3 mmol/L (0.5-2.2) H 05/27/24 14:06 Calcium 9.6 mg/dL (8.5-10.5) 05/27/24 14:06 Total Bilirubin 0.4 mg/dL (0.15-1.2) 05/27/24 14:06 AST 22 U/L (0-40) 05/27/24 14:06 ALT 17 U/L (0-41) 05/27/24 14:06 Alkaline Phosphatase 59 U/L (40-130) 05/27/24 14:06 C-Reactive Protein 90.1 mg/L (0.0-4.9) H 05/27/24 14:06 Total Protein 7.3 g/dL (6.6-8.7) 05/27/24 14:06 Albumin 3.9 g/dL (3.5-5.2) 05/27/24 14:06 Globulin 3.4 g/dL (1.3-4.6) 05/27/24 14:06 Procalcitonin 0.11 ng/mL (0-0.5) 05/27/24 14:06 All radiology interpretation(s) finalized by discharge Discharge Plan Discharge Patient Disposition: Home Clinical Impression: Rash of toe Condition: Stable Prescriptions: No Action allopurinol 300 mg tablet 300 mg PO DAILY multivitamin Tablet 6 tab PO DAILY@2200 lycopene 10 mg capsule 10 mg PO DAILY resveratrol 250 mg capsule 250 mg PO QPM saw palmetto 500 mg capsule 500 mg PO DAILY lovastatin 40 mg tablet 40 mg PO BEDTIME testosterone cypionate 200 mg/mL oil 120 mg IM Q7D Qty: 10 5RF Rx Instructions: ON TUESDAYS metoprolol tartrate 25 mg tablet 25 mg PO Q12H 30 Days Qty: 180 3RF levofloxacin 500 mg tablet 500 mg PO DAILY Xarelto 20 mg tablet 20 mg PO DAILY digoxin 125 mcg (0.125 mg) tablet 125 mcg PO DAILY Qty: 90 3RF furosemide 20 mg tablet See Rx Instructions .ROUTE .COMPLEX Qty: 180 0RF Hold Instructions: Resume on 10/14/23. Dose Instruction: Take 1 tablet by mouth once daily Rx Instructions: Take 1 tablet by mouth once daily sennosides [senna] 8.6 mg Tablet 8.6 mg PO DAILY PRN (Reason: Constipation) loratadine [Claritin] 10 mg tablet 10 mg PO DAILY PRN (Reason: ALLERGIES) acetaminophen 500 mg Tablet 500 mg PO Q6H PRN (Reason: Pain) trazodone 150 mg tablet 300 mg PO BEDTIME cholecalciferol (vitamin D3) [Vitamin D3] 10 mcg (400 unit) Capsule 10 mcg PO DAILY melatonin 5 mg Tablet 10 mg PO BEDTIME ketoconazole 2 % shampoo 1 applic TOPICAL DAILY PRN (Reason: Rash) gabapentin 300 mg capsule 300 mg PO TID hydrocortisone 2.5 % cream See Rx Instructions .ROUTE .COMPLEX Rx Instructions: MIX WITH EQUAL PARTS WITH KETOCONAZOLE CREAM AND APPLY RASH ON FACE, SCALP AND EARS TWICE DAILY WHEN RASH IS PRESENT ketoconazole 2 % cream See Rx Instructions .ROUTE .COMPLEX Rx Instructions: MIX WITH EQUAL PARTS WITH HYDROCORTISONE AND APPLY TO RASH ON FACE, SCALP AND EARS TWICE DAILY NEEDED testosterone 1.62 % (40.5 mg/2.5 gram) gel in packet 1 packet topical DAILY Discharge Orders: Discharge ED (Routine); Ordered 05/27/24 Ordered By: Emi Callejas Referrals: Al Álvarez MD [Primary Care Provider] - Activity Restrictions/Additional Instructions: As we discussed, rash to the toe does not overly appear cellulitic at this time. I would like you to go ahead and continue your Augmentin. I would like you to follow-up with primary care later this week/early next week for reevaluation. You may return to the emergency department for significantly worsening rash, redness, streaking up your foot or leg, fevers, drainage, or any other concerns you may have. Coding Level of Care Code ED [employer] for [facility]
[2024-05-27 14:15] LABS: Basophils # 0.1 10^3/uL (0.0-0.1); Basophils % 0.8 %; Eosinophils # 0.4 10^3/uL (0.0-0.8); Hematocrit 45.7 % (37-53); Lymphocytes # 1.5 10^3/uL (0.8-4.8); Lymphocytes % 20.4 %; Mean Corpuscular HGB Conc 33.3 g/dL (30-55); Mean Corpuscular Hemoglobin 32.4 pg (27-33); Mean Corpuscular Volume 97.4 fl (82-101); Mean Platelet Volume 9.6 fL (7.4-10.4); Monocytes # 0.6 10^3/uL (0.2-0.9); Monocytes % 8.8 %; Neutrophils # 4.57 10^3/uL (1.8-7.7); Neutrophils % 64.2 %; Nucleated Red Blood Cells % 0 %; Platelet Count 181 10^3/cmm (157-399); Red Blood Count 4.69 10^6/uL (3.85-5.65); White Blood Count 7.14 10^3/uL (3.29-11.43)
[2024-05-27 14:23] LABS: Erythrocyte Sedimentation Rate 19 mm/hr (0-10)
[2024-05-27 14:37] LABS: INR 1.05 (0.8-1.2)
[2024-05-27 14:38] LABS: Partial Thromboplastin Time 31.2 SECONDS (23.9-36.7)
[2024-05-27 14:43] LABS: Alanine Aminotransferase 17 U/L (0-41); Albumin Level 3.9 g/dL (3.5-5.2); Alkaline Phosphatase 59 U/L (40-130); Anion Gap 16.8 (5-19); Aspartate Amino Transferase 22 U/L (0-40); Blood Urea Nitrogen 16 mg/dL (8-23); C Reactive Protein 90.1 mg/L (0.0-4.9); Calcium 9.6 mg/dL (8.5-10.5); Carbon Dioxide 26 mmol/L (22-29); Chloride 98 mmol/L (98-107); Creatinine Clr Calc Pharmacy 96.7388; Globulin 3.4 g/dL (1.3-4.6); Glucose 179 mg/dL (65-115); Osmolality Calculated 288 mOsm/kg (285-295); Potassium 4.8 mmol/L (3.5-5.1); Sodium 136 mmol/L (136-145); Total Bilirubin 0.4 mg/dL (0.15-1.2); Total Protein 7.3 g/dL (6.6-8.7)
[2024-05-27 14:44] LABS: Lactic Sepsis W/Reflex 2.3 mmol/L (0.5-2.2)
[2024-05-27 14:50] LABS: Procalcitonin 0.11 ng/mL (0-0.5)
[2024-05-27 15:59] LABS: Reflex Lactate Order REFLEX LACTIC ORDERD
== END 2024-05-27 15:32 | disposition home or self-care (01) ==
PROVIDERS: Emergency Medicine; Emergency Provider Physician Assistant; PCP Family Medicine
DX: R21 Rash and other nonspecific skin eruption (principal); Z87.891 Personal history of nicotine dependence; Z85.038 Personal history of other malignant neoplasm of large intestine; F84.5 Asperger's syndrome; E78.5 Hyperlipidemia, unspecified
CPT/HCPCS: 36415; 73630; 80053; 83605; 84145; 85025; 85610; 85651; 85730; 86140; 99284

== ENCOUNTER → 2024-06-24 14:17 | Outpatient (BNVA) | payer MEDICARE, SELFPAY | PROVIDERS: PCP Family Medicine; Visit Provider Specialist | DX: M17.0 Bilateral primary osteoarthritis of knee (principal) | CPT/HCPCS: 73560; 73565; 99205 ==

== ENCOUNTER → 2024-07-02 09:56 | Outpatient (BNVA) | payer MEDICARE, SELFPAY | PROVIDERS: PCP Family Medicine; Visit Provider Podiatrist Foot & Ankle Surgery | DX: G62.9 Polyneuropathy, unspecified (principal); L60.3 Nail dystrophy; I73.9 Peripheral vascular disease, unspecified | CPT/HCPCS: 11721; 99203 ==

== ENCOUNTER 2024-07-07 03:48 | Observation (INO) | payer MEDICARE, SELFPAY ==
[2024-07-07] VITALS (43 sets, daily range): BP systolic 69–132; BP diastolic 46–85; PULSE 84–138; RESP 14–32; TEMP 36.5–37; O2SAT 88–100; BMI 39.1; BMI 39.2
--- NOTE | 2024-07-07 03:54 | ECG_ITS ---
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1955 Requested By: Tien Aparicio Order Number: [id number] Hilary MD: MARGAUX STOVALL Measurements Intervals [place] Rate: 108 P: 0 MT: 0 QRS: -38 QRSD: 110 T: 107 QT: 323 QTc: 433 Interpretive Statements ATRIAL FIBRILLATION WITH RAPID VENTRICULAR RESPONSE LEFT AXIS DEVIATION [QRS AXIS < -30] POSSIBLE ANTERIOR MYOCARDIAL INFARCTION , PROBABLY OLD [30 ms Q WAVE IN V3/V4, OR R < 0.2 mV IN V4] MODERATE T-WAVE ABNORMALITY, CONSIDER LATERAL ISCHEMIA [-0.1+ mV T-WAVE IN I/aVL/V5/V6] Compared to ECG 02/10/2024 22:21:19 Left-axis deviation now present Myocardial infarct finding now present Possible ischemia now present Intraventricular conduction delay no longer present T-wave abnormality still present Electronically Signed On 07-08-2024 20:10:26 CDT by MARGAUX STOVALL [email or web address]
--- NOTE | 2024-07-07 03:59 | CTR_ITS ---
PROCEDURE INFORMATION: Exam: CT Head Without Contrast Exam date and time: 07/07/2024 4:26 AM Age: 69 years old Clinical indication: Injury or trauma; Fall; Blunt trauma (contusions or hematomas); With loss of consciousness; Not specified; Syncope and collapse; Prior surgery; Surgery date: 1-6 months; Surgery type: Colon; Additional info: Fall syncope TECHNIQUE: Imaging protocol: Computed tomography of the head without contrast. Radiation optimization: All CT scans at this facility use at least one of these dose optimization techniques: automated exposure control; mA and/or kV adjustment per patient size (includes targeted exams where dose is matched to clinical indication); or iterative reconstruction. COMPARISON: CT head wo con* [id number] 10/31/2022 4:47 PM RADIATION DOSE METRICS: Total DLP (mGy-cm): 1403.14 FINDINGS: Brain: There is prominence of the subarachnoid spaces compatible with atrophy. There is small-vessel ischemic change within the periventricular white matter. No acute stroke or hemorrhage is appreciated. Cerebral ventricles: No ventriculomegaly. Paranasal sinuses: Visualized sinuses are unremarkable. No fluid levels. Mastoid air cells: Visualized mastoid air cells are well aerated. Bones: Unremarkable. No acute fracture. Soft tissues: Unremarkable. CT/CT head wo con* [id number] IMPRESSION: 1. No acute intracranial findings.
--- NOTE | 2024-07-07 04:02 | W.ED.FALL ---
Documented by User: Tien Aparicio DO 07/07/24 04:04 HPI - Fall General: Chief Complaint: Fall Stated Complaint: fell in shower Time Seen by Provider: 07/07/24 03:54 History of Present Illness: Patient presents by EMS with complaints of this and fall. Patient has a colostomy which leaked patient got up to wash himself off and was in the shower when he sat down on his chair Then he felt his head bounced off the shower wall. He thinks he may have passed out. Patient is been having extensive diarrhea. No nausea vomiting today, he did have 1 emesis episode yesterday. Patient does have a history of colon cancer and is currently seeing [facility] for chemotherapy. Patient has appointment later today. Related Data Home Medications Medication Instructions Recorded Confirmed allopurinol 300 mg tablet 300 mg PO DAILY 10/15/19 07/07/24 multivitamin 6 tab PO DAILY@2200 10/15/19 07/07/24 sennosides 8.6 mg tablet (senna) 8.6 mg PO DAILY PRN Constipation 10/27/19 07/07/24 lycopene 10 mg capsule 10 mg PO DAILY 11/15/20 07/07/24 resveratrol 250 mg capsule 250 mg PO QPM 11/15/20 07/07/24 saw palmetto 500 mg capsule 500 mg PO DAILY 11/15/20 07/07/24 loratadine 10 mg tablet (Claritin) 10 mg PO DAILY PRN ALLERGIES 11/21/21 07/07/24 ketoconazole 2 % shampoo 1 applic topical DAILY PRN Rash 07/18/22 07/07/24 acetaminophen 500 mg tablet 500 mg PO Q6H PRN Pain 10/09/22 07/07/24 cholecalciferol (vitamin D3) 10 10 mcg PO DAILY 10/09/22 07/07/24 mcg (400 unit) capsule (Vitamin D3) melatonin 5 mg tablet 10 mg PO BEDTIME 10/09/22 07/07/24 trazodone 150 mg tablet 300 mg PO BEDTIME 10/09/22 07/07/24 gabapentin 300 mg capsule 300 mg PO TID 02/04/23 07/07/24 lovastatin 40 mg tablet 40 mg PO BEDTIME 02/05/23 07/07/24 hydrocortisone 2.5 % topical cream See Rx Instructions .Route .COMPLEX 02/11/24 07/07/24 ketoconazole 2 % topical cream See Rx Instructions .Route .COMPLEX 02/11/24 07/07/24 testosterone 1.62 % (40.5 mg/2.5 1 packet topical DAILY 02/11/24 07/07/24 gram) transdermal gel packet rivaroxaban 20 mg tablet (Xarelto) 20 mg PO DAILY 03/04/24 07/07/24 furosemide 20 mg tablet 20 mg PO DAILY 07/07/24 07/07/24 Previous Rx's Medication Instructions Recorded digoxin 125 mcg (0.125 mg) tablet 125 mcg PO DAILY #90 tabs 06/07/23 metoprolol tartrate 25 mg tablet 25 mg PO Q12H 30 days #180 tabs 10/24/23 Allergies Allergy/AdvReac Type Severity Reaction Status Date / Time oats Allergy DIARRHEA Verified 07/07/24 03:55 Opioids - Morphine Analogues Allergy ADR-Chest Verified 07/07/24 03:55 Pain caffeine AdvReac Unknown PALPITATION Verified 07/07/24 03:55 S apple AdvReac DIARRHEA, Verified 07/07/24 03:55 VOMITING AND CRAMPING meperidine [From Demerol] AdvReac EXCESSIVE Verified 07/07/24 03:55 SEDATION morphine AdvReac HALLUCINATI Verified 07/07/24 03:55 ONS berries Allergy Unknown Uncoded 07/07/24 03:55 raw tomatoes Allergy ADR-Gastrointestinal Uncoded 07/07/24 03:55 Upset FRYE AdvReac DIARRHEA Uncoded 07/07/24 03:55 Review of Systems General: Reports: 10 or more systems reviewed and unremarkable except in HPI and below 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 (~08/2022) hospitalized in [place] Chronic sinusitis of both maxillary sinuses Gout Asperger syndrome mild Dyslipidemia Degenerative joint disease (DJD) of lumbar spine Obstructive sleep apnea Chronic low back pain Substernal goiter Asthma Restrictive lung disease due to kyphoscoliosis Suspected exposure to asbestos Allergies Right renal stone Testosterone deficiency On TRT for 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 Erectile dysfunction Opioid contract exists previous Chronic pain syndrome Surgical History Hx of bilateral cataract extraction History of colostomy (11/01/22) Colostomy revision for control of bleeding History of exploratory laparotomy (10/15/22) Exploratory laparotomy with partial colon resection and with end colostomy formation Status post left hemicolectomy (10/08/22) laparoscopic converted to open, with splenic flexure takedown and right colon mobilization, primary anastamosis History of back surgery History of shoulder surgery History of appendectomy H/O arthroscopic knee surgery H/O ankle fusion H/O wrist surgery S/P ureteral stent placement Family History Grandfather CAD (coronary artery disease) Family/Other Cancer Grandmother Dementia Stroke Mother Lung disease Other Hypertension Denies family history of Rheumatoid arthritis Diabetes Lupus Clotting disorder Hyperlipidemia Chronic kidney disease (CKD) Suicide Anesthesia complication Bleeding disorder Social History Smoking and tobacco/nicotine status: never used tobacco/nicotine Quit status (tobacco/nicotine): has quit using Year quit tobacco: 1976 [id number] Second hand smoke exposure: Yes Alcohol intake: never Substance/Drug Use: never Lives independently: Yes Current occupational status: retired Pets and animals: Yes Do you think of yourself as: Straight/Heterosexual Current gender identity: Male Physical Exam Const: COMMON NORMALS: no acute distress, average body habitus, patient oriented x3, no limitations, healthy appearing, alert and well nourished HENMT: COMMON NORMALS: normocephalic, atraumatic, hearing grossly normal bilaterally, external ears normal, Normal external nose present and moist oral mucous membranes HEAD & SCALP: normocephalic and atraumatic NOSE: Normal external nose present EXTERNAL EAR: Yes external ears normal Eye: COMMON NORMALS: Equal, round and reactive pupils present and EOMs intact bilaterally PUPIL: Yes Equal, round and reactive pupils present Neck/C-Spine: COMMON NORMALS: full ROM, no lymphadenopathy, supple, no meningeal signs, no JVD and Thyroid normal THYROID: Thyroid normal Chest: COMMONS NORMALS: normal inspection of the chest and normal palpation of entire chest wall Resp: COMMON NORMALS: normal respiratory effort, No retractions, No use of accessory muscles and clear to auscultation bilaterally AUSCULTATION: clear to auscultation bilaterally Cardio: COMMON NORMALS: no JVD, regular rate, regular rhythm, S1 normal heart sound present, S2 normal heart sound present, No gallops present (Cardio), No clicks present (Cardio), No murmurs present (Cardio) and No rub (Cardio) RATE: regular rate RHYTHM: regular rhythm HEART SOUNDS: S1 normal heart sound present and S2 normal heart sound present GI: COMMON NORMALS: Normal to inspection, nondistended, normoactive bowel sounds present, Soft to palpation, non-tender, No hepatosplenomegaly present and no masses PALPATION: Yes Soft to palpation and Yes No hepatosplenomegaly present Neuro: COMMON NORMALS: patient oriented x3 SENSORIUM/ORIENTATION: Yes alert MENINGEAL SIGNS: Yes no meningeal signs Course Vital Signs: Vital signs: Vital Signs Temperature 98.0 F 07/07/24 03:49 Pulse Rate 101 H 07/07/24 10:15 Respiratory Rate 16 07/07/24 10:15 Blood Pressure 72/46 07/07/24 10:15 Pulse Oximetry 93 07/07/24 10:15 Oxygen Delivery Me thod Room Air 07/07/24 08:07 Oxygen Flow Rate 0.5 07/07/24 06:24 MDM - Fall Medical Records I reviewed the patient's medical records. Lab Data I reviewed the patient's lab results. 07/07/24 04:20 07/07/24 04:[address] 07/07/24 03:59 IMPRESSION: 1. No acute intracranial findings. Abdomen/Pelvis CT 07/07/24 06:48 IMPRESSION: 1. Interval worsening in metastatic disease to the liver superimposed upon fatty infiltration of the liver. 2. Suspect tumor nodule involving the rectosigmoid remnant. 3. Status post subtotal colectomy. 4. Contour deformity involving the right kidney likely related to patient's known subcapsular hematoma. Please note that the hematoma is not well delineated on this noncontrast exam. 5. Please see above comments for additional details. COMMENTS: Consistent with the [employer]'s Incidental Findings Committee white paper (J Am Dg Radiol 2018): Any incidental renal lesion less than 1 cm or classified as too small to characterize, or any incidental cystic renal lesion characterized as simple-appearing, is likely benign. No follow-up imaging is recommended for these lesions per consensus recommendations based on imaging criteria. Chest X-Ray 07/07/24 07:34 IMPRESSION: No acute chest abnormality with improvement in cephalization of pulmonary blood flow compared to the previous study. Knee X-Ray 07/07/24 08:03 IMPRESSION: 1. Osteoarthritis. 2. Indeterminate small lucency involving the proximal tibial metaphysis unchanged. Cervical Spine CT 07/07/24 09:06 IMPRESSION: No evidence of acute fracture or dislocation. Laboratory Results WBC 8.61 10^3/uL (3.29-11.43) 07/07/24 04:20 RBC 5.25 10^6/uL (3.85-5.65) 07/07/24 04:20 Hgb 16.40 g/dL (11.27-16.99) 07/07/24 04:20 Hct 51.1 % (37-53) 07/07/24 04:20 MCV 97.3 fl (82-101) 07/07/24 04:20 MCH 31.2 pg (27-33) 07/07/24 04:20 MCHC 32.1 g/dL (30-55) 07/07/24 04:20 RDW 15.9 % (12.1-15.1) H 07/07/24 04:20 Plt Count 204 10^3/cmm (157-399) 07/07/24 04:20 MPV 9.8 fL (7.4-10.4) 07/07/24 04:20 Neut % (Auto) 66.9 % 07/07/24 04:20 Lymph % (Auto) 17.8 % 07/07/24 04:20 [place] % (Auto) 10.9 % 07/07/24 04:20 Eos % (Auto) 3.6 % 07/07/24 04:20 Baso % (Auto) 0.1 % 07/07/24 04:20 Neut # (Auto) 5.76 10^3/uL (1.8-7.7) 07/07/24 04:20 Lymph # (Auto) 1.5 10^3/uL (0.8-4.8) 07/07/24 04:20 [place] # (Auto) 0.9 10^3/uL (0.2-0.9) 07/07/24 04:20 Eos # (Auto) 0.3 10^3/uL (0.0-0.8) 07/07/24 04:20 Baso # (Auto) 0.0 10^3/uL (0.0-0.1) 07/07/24 04:20 Nucleated RBC % (auto) 0 % 07/07/24 04:20 Nucleated RBCs # 0.0 /100WBC 07/07/24 04:20 PT 13.90 SECONDS (12.1-14.9) 07/07/24 04:20 INR 1.04 (0.8-1.2) 07/07/24 04:20 Sodium 134 mmol/L (136-145) L 07/07/24 04:20 Potassium 4.9 mmol/L (3.5-5.1) 07/07/24 04:20 Chloride 98 mmol/L (98-107) 07/07/24 04:20 Carbon Dioxide 20 mmol/L (22-29) L 07/07/24 04:20 Anion Gap 20.9 (5-19) H 07/07/24 04:20 BUN 27 mg/dL (8-23) H 07/07/24 04:20 Creatinine 2.1 mg/dL (0.7-1.2) H 07/07/24 04:20 GFR Calculation 31.5 mL/min (90-130) L 07/07/24 04:20 Glucose 172 mg/dL (65-115) H 07/07/24 04:20 Calculated Osmolality 287 mOsm/kg (285-295) 07/07/24 04:20 Calcium 9.1 mg/dL (8.5-10.5) 07/07/24 04:20 Magnesium 1.8 mg/dL (1.7-2.3) 07/07/24 04:20 Total Bilirubin 0.5 mg/dL (0.15-1.2) 07/07/24 04:20 AST 24 U/L (0-40) 07/07/24 04:20 ALT 21 U/L (0-41) 07/07/24 04:20 Alkaline Phosphatase 75 U/L (40-130) 07/07/24 04:20 Creatine Kinase 57 U/L (39-308) 07/07/24 04:20 Total Protein 8.1 g/dL (6.6-8.7) 07/07/24 04:20 Albumin 4.3 g/dL (3.5-5.2) 07/07/24 04:20 Globulin 3.8 g/dL (1.3-4.6) 07/07/24 04:20 TSH 3.97 uIU/mL (0.27-4.20) 07/07/24 04:20 Urine Color Dark yellow (Yellow) A 07/07/24 04:54 Urine Appearance Cloudy (CLEAR) A 07/07/24 04:54 Urine pH 5.0 (5-7) 07/07/24 04:54 Ur Specific [place] 1.032 (1.005-1.030) H 07/07/24 04:54 Urine Protein 3+ (Negative) A 07/07/24 04:54 Urine Glucose (UA) Negative (Normal) 07/07/24 04:54 Urine Ketones Trace (Negative) 07/07/24 04:54 Urine Blood Negative (Negative) 07/07/24 04:54 Urine Nitrate Negative (Negative) 07/07/24 04:54 Urine Bilirubin 1+ (Negative) H 07/07/24 04:54 Urine Urobilinogen 1.0 mg/dL (Negative) 07/07/24 04:54 Ur Leukocyte Esterase Trace (Negative) A 07/07/24 04:54 Urine RBC 3-5 /hpf (0-2) 07/07/24 04:54 Urine WBC 0-5 /hpf (0-5) 07/07/24 04:54 Ur Squamous Epith Cells 0-5 /hpf (0-5) 07/07/24 04:54 Amorphous Sediment 2+ /hpf 07/07/24 04:54 Urine Bacteria None seen /hpf (NONE) 07/07/24 04:54 Hyaline Casts 54.20 /lpf 07/07/24 04:54 Urine Mucus 2+ /hpf 07/07/24 04:54 Digoxin 0.6 ng/mL (0.6-1.2) 07/07/24 04:20 C. difficile (PCR) Positive (Negative) H 07/07/24 08:08 C.difficile Tox Confrm Negative (Negative) 07/07/24 08:08 All radiology interpretation(s) finalized by discharge Discharge Plan Discharge Patient Disposition: Placed in Observation Admit Provider: Piotr Rivera Clinical Impression: Diarrhea, Metastatic colon cancer to liver, Syncope, Orthostatic hypotension Condition: Stable Sign Out Sign Out Data: Patient Sign Out occurred on 07/07/24 at 06:11. Patient's care was discussed, and care was transferred from Tien Aparicio DO to Jatinder Yeboah DO. Coding Level of Care Code ED Graduate Teacher Education for Chg Fwd Documented by User: Jatinder Yeboah DO 07/07/24 11:40 HPI - Fall General: Chief Complaint: Fall Stated Complaint: fell in shower Time Seen by Provider: 07/07/24 03:54 Related Data Home Medications Medication Instructions Recorded Confirmed allopurinol 300 mg tablet 300 mg PO DAILY 10/15/19 07/07/24 multivitamin 6 tab PO DAILY@2200 10/15/19 07/07/24 sennosides 8.6 mg tablet (senna) 8.6 mg PO DAILY PRN Constipation 10/27/19 07/07/24 lycopene 10 mg capsule 10 mg PO DAILY 11/15/20 07/07/24 resveratrol 250 mg capsule 250 mg PO QPM 11/15/20 07/07/24 saw palmetto 500 mg capsule 500 mg PO DAILY 11/15/20 07/07/24 loratadine 10 mg tablet (Claritin) 10 mg PO DAILY PRN ALLERGIES 11/21/21 07/07/24 ketoconazole 2 % shampoo 1 applic topical DAILY PRN Rash 07/18/22 07/07/24 acetaminophen 500 mg tablet 500 mg PO Q6H PRN Pain 10/09/22 07/07/24 cholecalciferol (vitamin D3) 10 10 mcg PO DAILY 10/09/22 07/07/24 mcg (400 unit) capsule (Vitamin D3) melatonin 5 mg tablet 10 mg PO BEDTIME 10/09/22 07/07/24 trazodone 150 mg tablet 300 mg PO BEDTIME 10/09/22 07/07/24 gabapentin 300 mg capsule 300 mg PO TID 02/04/23 07/07/24 lovastatin 40 mg tablet 40 mg PO BEDTIME 02/05/23 07/07/24 hydrocortisone 2.5 % topical cream See Rx Instructions .Route .COMPLEX 02/11/24 07/07/24 ketoconazole 2 % topical cream See Rx Instructions .Route .COMPLEX 02/11/24 07/07/24 testosterone 1.62 % (40.5 mg/2.5 1 packet topical DAILY 02/11/24 07/07/24 gram) transdermal gel packet rivaroxaban 20 mg tablet (Xarelto) 20 mg PO DAILY 03/04/24 07/07/24 furosemide 20 mg tablet 20 mg PO DAILY 07/07/24 07/07/24 Previous Rx's Medication Instructions Recorded digoxin 125 mcg (0.125 mg) tablet 125 mcg PO DAILY #90 tabs 06/07/23 metoprolol tartrate 25 mg tablet 25 mg PO Q12H 30 days #180 tabs 10/24/23 Allergies Allergy/AdvReac Type Severity Reaction Status Date / Time oats Allergy DIARRHEA Verified 07/07/24 03:55 Opioids - Morphine Analogues Allergy ADR-Chest Verified 07/07/24 03:55 Pain caffeine AdvReac Unknown PALPITATION Verified 07/07/24 03:55 S apple AdvReac DIARRHEA, Verified 07/07/24 03:55 VOMITING AND CRAMPING meperidine [From Demerol] AdvReac EXCESSIVE Verified 07/07/24 03:55 SEDATION morphine AdvReac HALLUCINATI Verified 07/07/24 03:55 ONS berries Allergy Unknown Uncoded 07/07/24 03:55 raw tomatoes Allergy ADR-Gastrointestinal Uncoded 07/07/24 03:55 Upset FRYE AdvReac DIARRHEA Uncoded 07/07/24 03:55 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 (~08/2022) hospitalized in [place] Chronic sinusitis of both maxillary sinuses Gout Asperger syndrome mild Dyslipidemia Degenerative joint disease (DJD) of lumbar spine Obstructive sleep apnea Chronic low back pain Substernal goiter Asthma Restrictive lung disease due to kyphoscoliosis Suspected exposure to asbestos Allergies Right renal stone Testosterone deficiency On TRT for 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 Erectile dysfunction Opioid contract exists previous Chronic pain syndrome Surgical History Hx of bilateral cataract extraction History of colostomy (11/01/22) Colostomy revision for control of bleeding History of exploratory laparotomy (10/15/22) Exploratory laparotomy with partial colon resection and with end colostomy formation Status post left hemicolectomy (10/08/22) laparoscopic converted to open, with splenic flexure takedown and right colon mobilization, primary anastamosis History of back surgery History of shoulder surgery History of appendectomy H/O arthroscopic knee surgery H/O ankle fusion H/O wrist surgery S/P ureteral stent placement Family History Grandfather CAD (coronary artery disease) Family/Other Cancer Grandmother Dementia Stroke Mother Lung disease Other Hypertension Denies family history of Rheumatoid arthritis Diabetes Lupus Clotting disorder Hyperlipidemia Chronic kidney disease (CKD) Suicide Anesthesia complication Bleeding disorder Social History Smoking and tobacco/nicotine status: never used tobacco/nicotine Quit status (tobacco/nicotine): has quit using Year quit tobacco: 1976 [id number] Second hand smoke exposure: Yes Alcohol intake: never Substance/Drug Use: never Lives independently: Yes Current occupational status: retired Pets and animals: Yes Do you think of yourself as: Straight/Heterosexual Current gender identity: Male Physical Exam Const: COMMON NORMALS: negative for alert Neuro: SENSORIUM/ORIENTATION: No alert Course Vital Signs: Vital signs: Vital Signs Temperature 98.0 F 07/07/24 03:49 Pulse Rate 101 H 07/07/24 10:15 Respiratory Rate 16 07/07/24 10:15 Blood Pressure 72/46 07/07/24 10:15 Pulse Oximetry 93 07/07/24 10:15 Oxygen Delivery Me thod Room Air 07/07/24 08:07 Oxygen Flow Rate 0.5 07/07/24 06:24 MDM - Fall Medical Decision Making Care assumed at change of shift after 2 L patient is still significantly orthostatic with his pressure going from little over 100 down to 69 systolic and was symptomatic as well. He is having significant diarrhea losses were think is fluid issues are coming from. He has a mild acute kidney injury as well. Potassium is normal sodium slightly low not significant. Discussed with hospitalist will place on observation IV fluids supportive cares patient was on antibiotics that he finished within the last month course of Levaquin will check a C. difficile on him as well. Lab Data 07/07/24 04:20 07/07/24 04:[address] 07/07/24 03:59 IMPRESSION: 1. No acute intracranial findings. Abdomen/Pelvis CT 07/07/24 06:48 IMPRESSION: 1. Interval worsening in metastatic disease to the liver superimposed upon fatty infiltration of the liver. 2. Suspect tumor nodule involving the rectosigmoid remnant. 3. Status post subtotal colectomy. 4. Contour deformity involving the right kidney likely related to patient's known subcapsular hematoma. Please note that the hematoma is not well delineated on this noncontrast exam. 5. Please see above comments for additional details. COMMENTS: Consistent with the [employer]'s Incidental Findings Committee white paper (J Am Dg Radiol 2018): Any incidental renal lesion less than 1 cm or classified as too small to characterize, or any incidental cystic renal lesion characterized as simple-appearing, is likely benign. No follow-up imaging is recommended for these lesions per consensus recommendations based on imaging criteria. Chest X-Ray 07/07/24 07:34 IMPRESSION: No acute chest abnormality with improvement in cephalization of pulmonary blood flow compared to the previous study. Knee X-Ray 07/07/24 08:03 IMPRESSION: 1. Osteoarthritis. 2. Indeterminate small lucency involving the proximal tibial metaphysis unchanged. Cervical Spine CT 07/07/24 09:06 IMPRESSION: No evidence of acute fracture or dislocation. Laboratory Results WBC 8.61 10^3/uL (3.29-11.43) 07/07/24 04:20 RBC 5.25 10^6/uL (3.85-5.65) 07/07/24 04:20 Hgb 16.40 g/dL (11.27-16.99) 07/07/24 04:20 Hct 51.1 % (37-53) 07/07/24 04:20 MCV 97.3 fl (82-101) 07/07/24 04:20 MCH 31.2 pg (27-33) 07/07/24 04:20 MCHC 32.1 g/dL (30-55) 07/07/24 04:20 RDW 15.9 % (12.1-15.1) H 07/07/24 04:20 Plt Count 204 10^3/cmm (157-399) 07/07/24 04:20 MPV 9.8 fL (7.4-10.4) 07/07/24 04:20 Neut % (Auto) 66.9 % 07/07/24 04:20 Lymph % (Auto) 17.8 % 07/07/24 04:20 [place] % (Auto) 10.9 % 07/07/24 04:20 Eos % (Auto) 3.6 % 07/07/24 04:20 Baso % (Auto) 0.1 % 07/07/24 04:20 Neut # (Auto) 5.76 10^3/uL (1.8-7.7) 07/07/24 04:20 Lymph # (Auto) 1.5 10^3/uL (0.8-4.8) 07/07/24 04:20 [place] # (Auto) 0.9 10^3/uL (0.2-0.9) 07/07/24 04:20 Eos # (Auto) 0.3 10^3/uL (0.0-0.8) 07/07/24 04:20 Baso # (Auto) 0.0 10^3/uL (0.0-0.1) 07/07/24 04:20 Nucleated RBC % (auto) 0 % 07/07/24 04:20 Nucleated RBCs # 0.0 /100WBC 07/07/24 04:20 PT 13.90 SECONDS (12.1-14.9) 07/07/24 04:20 INR 1.04 (0.8-1.2) 07/07/24 04:20 Sodium 134 mmol/L (136-145) L 07/07/24 04:20 Potassium 4.9 mmol/L (3.5-5.1) 07/07/24 04:20 Chloride 98 mmol/L (98-107) 07/07/24 04:20 Carbon Dioxide 20 mmol/L (22-29) L 07/07/24 04:20 Anion Gap 20.9 (5-19) H 07/07/24 04:20 BUN 27 mg/dL (8-23) H 07/07/24 04:20 Creatinine 2.1 mg/dL (0.7-1.2) H 07/07/24 04:20 GFR Calculation 31.5 mL/min (90-130) L 07/07/24 04:20 Glucose 172 mg/dL (65-115) H 07/07/24 04:20 Calculated Osmolality 287 mOsm/kg (285-295) 07/07/24 04:20 Calcium 9.1 mg/dL (8.5-10.5) 07/07/24 04:20 Magnesium 1.8 mg/dL (1.7-2.3) 07/07/24 04:20 Total Bilirubin 0.5 mg/dL (0.15-1.2) 07/07/24 04:20 AST 24 U/L (0-40) 07/07/24 04:20 ALT 21 U/L (0-41) 07/07/24 04:20 Alkaline Phosphatase 75 U/L (40-130) 07/07/24 04:20 Creatine Kinase 57 U/L (39-308) 07/07/24 04:20 Total Protein 8.1 g/dL (6.6-8.7) 07/07/24 04:20 Albumin 4.3 g/dL (3.5-5.2) 07/07/24 04:20 Globulin 3.8 g/dL (1.3-4.6) 07/07/24 04:20 TSH 3.97 uIU/mL (0.27-4.20) 07/07/24 04:20 Urine Color Dark yellow (Yellow) A 07/07/24 04:54 Urine Appearance Cloudy (CLEAR) A 07/07/24 04:54 Urine pH 5.0 (5-7) 07/07/24 04:54 Ur Specific [place] 1.032 (1.005-1.030) H 07/07/24 04:54 Urine Protein 3+ (Negative) A 07/07/24 04:54 Urine Glucose (UA) Negative (Normal) 07/07/24 04:54 Urine Ketones Trace (Negative) 07/07/24 04:54 Urine Blood Negative (Negative) 07/07/24 04:54 Urine Nitrate Negative (Negative) 07/07/24 04:54 Urine Bilirubin 1+ (Negative) H 07/07/24 04:54 Urine Urobilinogen 1.0 mg/dL (Negative) 07/07/24 04:54 Ur Leukocyte Esterase Trace (Negative) A 07/07/24 04:54 Urine RBC 3-5 /hpf (0-2) 07/07/24 04:54 Urine WBC 0-5 /hpf (0-5) 07/07/24 04:54 Ur Squamous Epith Cells 0-5 /hpf (0-5) 07/07/24 04:54 Amorphous Sediment 2+ /hpf 07/07/24 04:54 Urine Bacteria None seen /hpf (NONE) 07/07/24 04:54 Hyaline Casts 54.20 /lpf 07/07/24 04:54 Urine Mucus 2+ /hpf 07/07/24 04:54 Digoxin 0.6 ng/mL (0.6-1.2) 07/07/24 04:20 C. difficile (PCR) Positive (Negative) H 07/07/24 08:08 C.difficile Tox Confrm Negative (Negative) 07/07/24 08:08 Discharge Plan Discharge Patient Disposition: Placed in Observation Admit Provider: Piotr Rivera Clinical Impression: Diarrhea, Metastatic colon cancer to liver, Syncope, Orthostatic hypotension Condition: Stable Sign Out Sign Out Data: Patient Sign Out occurred on 07/07/24 at 06:11. Patient's care was discussed, and care was transferred from Tien Aparicio DO to Jatinder Yeboah DO. Coding Level of Care Code ED Graduate Teacher Education for [place] [place]
[2024-07-07] MEDS: sodium chloride 0.9% 1,000 ML 999 ML IV ×3 (04:12→07:16)
[2024-07-07 04:25] LABS: Basophils % 0.1 %; Eosinophils # 0.3 10^3/uL (0.0-0.8); Eosinophils % 3.6 %; Hematocrit 51.1 % (37-53); Lymphocytes # 1.5 10^3/uL (0.8-4.8); Lymphocytes % 17.8 %; Mean Corpuscular HGB Conc 32.1 g/dL (30-55); Mean Corpuscular Hemoglobin 31.2 pg (27-33); Mean Corpuscular Volume 97.3 fl (82-101); Mean Platelet Volume 9.8 fL (7.4-10.4); Monocytes # 0.9 10^3/uL (0.2-0.9); Monocytes % 10.9 %; Neutrophils # 5.76 10^3/uL (1.8-7.7); Neutrophils % 66.9 %; Nucleated Red Blood Cells % 0 %; Platelet Count 204 10^3/cmm (157-399); Red Blood Count 5.25 10^6/uL (3.85-5.65); Red Cell Distribution Width 15.9 % (12.1-15.1); White Blood Count 8.61 10^3/uL (3.29-11.43)
[2024-07-07 04:41] LABS: INR 1.04 (0.8-1.2)
[2024-07-07 04:45] LABS: Alanine Aminotransferase 21 U/L (0-41); Albumin Level 4.3 g/dL (3.5-5.2); Alkaline Phosphatase 75 U/L (40-130); Anion Gap 20.9 (5-19); Aspartate Amino Transferase 24 U/L (0-40); Blood Urea Nitrogen 27 mg/dL (8-23); Calcium 9.1 mg/dL (8.5-10.5); Carbon Dioxide 20 mmol/L (22-29); Chloride 98 mmol/L (98-107); Creatinine Clr Calc Pharmacy 49.1451; Globulin 3.8 g/dL (1.3-4.6); Glomerular Filtration Rate 31.5 mL/min (90-130); Glucose 172 mg/dL (65-115); Magnesium 1.8 mg/dL (1.7-2.3); Osmolality Calculated 287 mOsm/kg (285-295); Potassium 4.9 mmol/L (3.5-5.1); Sodium 134 mmol/L (136-145); Total Bilirubin 0.5 mg/dL (0.15-1.2); Total Protein 8.1 g/dL (6.6-8.7)
[2024-07-07 05:05] LABS: Bilirubin Urine 1+ (Negative); Blood Urine Negative (Negative); Glucose Urine UA Negative (Normal); Ketones Urine Trace (Negative); Leukocyte Esterase Urine Trace (Negative); Nitrate Urine Negative (Negative); Protein Urine 3+ (Negative); Urine Appearance Cloudy (CLEAR); Urine Color Dark Yellow (Yellow)
[2024-07-07 05:07] LABS: Digoxin 0.6 ng/mL (0.6-1.2)
[2024-07-07 05:07] LABS: Add Urine Microscopic? YES; Bacteria Urine None Seen /hpf; Squamous Epithelial Cell Urine 0-5 /hpf (0-5); WBC Urine 0-5 /hpf (0-5)
[2024-07-07 05:25] LABS: Specific Gravity, Urine 1.032 (1.005-1.030)
[2024-07-07 05:26] LABS: Add Urine Culture? No; Amorphous Sediment Urine 2+ /hpf; Mucus Urine 2+ /hpf; UA Slide Review UA Slide Review Perf
[2024-07-07] MEDS: HYDROcodone-acetaminophen 5-325 mg Tablet 1 TAB PO ×4 (05:33→22:27)
--- NOTE | 2024-07-07 06:48 | CTR_ITS ---
PROCEDURE INFORMATION: Exam: CT Abdomen And Pelvis Without Contrast Exam date and time: 07/07/2024 6:58 AM Age: 69 years old Clinical indication: Pain and injury or trauma; Fall; Sprain or strain; Abdominal pain; Prior surgery; Surgery date: 6+ months; Surgery type: Spine, appy, colon TECHNIQUE: Imaging protocol: Computed tomography of the abdomen and pelvis without contrast. Radiation optimization: All CT scans at this facility use at least one of these dose optimization techniques: automated exposure control; mA and/or kV adjustment per patient size (includes targeted exams where dose is matched to clinical indication); or iterative reconstruction. COMPARISON: PT PET skull to thigh SUBS [id number] 03/17/2024 10:45 AM, CT abdomen and pelvic exam 02/10/2024 RADIATION DOSE METRICS: Total DLP (mGy-cm): 1395 FINDINGS: Lungs: There is linear atelectasis or scarring at the left lung base. Liver: There is diffuse fatty infiltration of the liver. There are low-density lesions within the inferior right lobe of the liver suspicious for metastatic disease. The lesions are larger on today's exam when compared to prior exams. Gallbladder and biliary ducts: Normal. No calcified stones. No ductal dilation. Pancreas: Normal. No ductal dilation. Spleen: Normal. No splenomegaly. Adrenal glands: Normal. No mass. Kidneys and ureters: Nonobstructing renal calculi are noted on the right. Contour deformity of the mid inferior pole of the right kidney likely represents subcapsular hematoma seen on prior exam. There are benign-appearing renal cysts. No hydronephrosis is noted. Stomach and bowel: There are postoperative changes status post partial colectomy. There is a right lower quadrant colostomy. No dilated loops of large or small bowel is appreciated. There is soft tissue nodularity involving the rectosigmoid remnant measuring 3 cm in size suspicious for tumor (previously 2.7 cm). Appendix: Appendix is not identified. Intraperitoneal space: Unremarkable. No free air. No significant fluid collection. Vasculature: The aorta is normal in caliber. There is calcified plaque involving the aorta and its branch vessels. Lymph nodes: Unremarkable. No enlarged lymph nodes. Urinary bladder: Unremarkable as visualized. Reproductive: Unremarkable as visualized. Bones/joints: There are postoperative changes involving the spine. No blastic or lytic bony lesions are appreciated. Soft tissues: There is a fat filled left inguinal hernia. CT/CT abdomen pelvis wo con [id number] IMPRESSION: 1. Interval worsening in metastatic disease to the liver superimposed upon fatty infiltration of the liver. 2. Suspect tumor nodule involving the rectosigmoid remnant. 3. Status post subtotal colectomy. 4. Contour deformity involving the right kidney likely related to patient's known subcapsular hematoma. Please note that the hematoma is not well delineated on this noncontrast exam. 5. Please see above comments for additional details. COMMENTS: Consistent with the [employer]'s Incidental Findings Committee white paper (J Am Dg Radiol 2018): Any incidental renal lesion less than 1 cm or classified as too small to characterize, or any incidental cystic renal lesion characterized as simple-appearing, is likely benign. No follow-up imaging is recommended for these lesions per consensus recommendations based on imaging criteria.
--- NOTE | 2024-07-07 07:34 | XR_ITS ---
WS: [id number] XR chest 1V portable [id number] REASON FOR EXAM: dyspnea/cough FINDINGS: Compared to the previous examination of 02/10/2024, there is a right internal jugular line and presume d port which is accessed by needle. The heart is enlarged. The cephalization of pulmonary venous blood flow is not as prominent as on the previous examination. No acute pulmonary parenchymal or pleural abnormality is identified. There is linear scarring and pro minence of the interstitium in the left lower lung unchanged compared to the previous study. There are thoracic Marr rods. XR/XR chest 1V portable [id number] IMPRESSION: No acute chest abnormality with improvement in cephalization of pulmonary blood flow compared to the previous study.
--- NOTE | 2024-07-07 07:46 | PC.PHAR ---
Addendum entered by Debbie Mcintyre 07/07/24 09:00: [facility] 5mg #60 qid, prn, lopermide 2mg prn loose stools ondansetron 8mg q6h, prn, nausea folfiri & josé miguel combo of 4 meds every 14 days Original Note: patient is on current cancer therapy with [facility] unable to verify chemo med with the pharmacy, will follow up
--- NOTE | 2024-07-07 08:03 | XRR_ITS ---
PROCEDURE INFORMATION: Exam: XR Left Knee Exam date and time: 07/07/2024 8:33 AM Age: 69 years old Clinical indication: Injury or trauma; Fall; Blunt trauma; Knee; Left; Injury details: HX of colon cancer TECHNIQUE: Imaging protocol: Radiologic exam of the left knee. Views: 3 views. COMPARISON: CR XR knees AP WB w BI lmt ORTH 06/24/2024 2:27 PM FINDINGS: Bones/joints: No acute fracture or dislocation is noted. Old healed fracture noted involving the proximal fibula. There is joint space narrowing with osteophyte formation most pronounced involving the medial and patellofemoral compartments. There are tibial spine osteophytes. Indeterminate small lucency noted involving the proximal tibial metaphysis measures 1 cm in size and is unchanged when compared to prior exam. Bony mineralization is otherwise normal. There is no evidence of a significant joint effusion. Soft tissues: Normal. XR/XR knee LT 3V* [id number] IMPRESSION: 1. Osteoarthritis. 2. Indeterminate small lucency involving the proximal tibial metaphysis unchanged.
[2024-07-07 09:03] LABS: Thyroid Stimulating Hormone 3.97 uIU/mL (0.27-4.20)
--- NOTE | 2024-07-07 09:05 | P.HP_ITS ---
Providers/Chief Complaint 2 Admitting Physician: Piotr Rivera MD Primary Care Provider: Al Álvarez MD Chief Complaint: fell in shower History of Present Illness Charan Voss is a 69 year old male presenting from home with history of fall. He reports he has been having some diarrhea the last 2 days, no fever, and although he has been trying to keep up by drinking more fluids he is noted decreased urine output and dizziness. This morning when his colostomy broke, he went to the shower to wash it off and was dizzy. Upon sitting he was still dizzy and he ultimately passed out in the shower. He states he hit his left knee, neck and head. He reports some head pain, neck pain, left knee pain. He also reports his lower back hurts a little bit. In the emergency department he received some IV fluids, but on orthostatic testing was still significantly orthostatic. He does report he feels a little bit better than when he came in. He denies any blood in his ostomy, fever, ill contacts. He has had 1 episode of nausea and vomiting but does not feel nauseous continually. He reports occasional abdominal pain, but not out of ordinary for him with his history of metastatic colon cancer. In the emergency department he received some IV fluids, hydrocodone, CT of his head, CT of his abdomen, and an x-ray of his knee and chest. Past medical history is pertinent for his HPI including metastatic colon cancer currently receiving chemotherapy, unknown type, having received 2 treatments with the last 1 being 2 weeks ago. Chemotherapy is administered at [facility], and he was to have his third treatment today. He also has a history of C. difficile, with last antibiotic treatment for an infected toenail with 21 days of antibiotics approximately 3 to 4 weeks ago. Review of Systems 2 General: Reports: 10 or more systems reviewed and unremarkable except in HPI and below Card: Denies: chest pain Resp: Denies: dyspnea GI: Reports: nausea, vomiting and diarrhea; Denies: melena Medications/Allergies Home Medications Medication Instructions Recorded Confirmed Last Taken Type allopurinol 300 mg tablet 300 mg PO DAILY 10/15/19 07/07/24 01/08/24 History multivitamin 6 tab PO DAILY@2200 10/15/19 07/07/24 01/08/24 History sennosides 8.6 mg tablet (senna) 8.6 mg PO DAILY PRN Constipation 10/27/19 07/07/24 07/06/24 History lycopene 10 mg capsule 10 mg PO DAILY 11/15/20 07/07/24 01/08/24 History resveratrol 250 mg capsule 250 mg PO QPM 11/15/20 07/07/24 07/06/24 History saw palmetto 500 mg capsule 500 mg PO DAILY 11/15/20 07/07/24 07/06/24 History loratadine 10 mg tablet (Claritin) 10 mg PO DAILY PRN ALLERGIES 11/21/21 07/07/24 07/06/24 History ketoconazole 2 % shampoo 1 applic topical DAILY PRN Rash 07/18/22 07/07/24 07/06/24 History acetaminophen 500 mg tablet 500 mg PO Q6H PRN Pain 10/09/22 07/07/24 01/09/24 History cholecalciferol (vitamin D3) 10 10 mcg PO DAILY 10/09/22 07/07/24 01/08/24 History mcg (400 unit) capsule (Vitamin D3) melatonin 5 mg tablet 10 mg PO BEDTIME 10/09/22 07/07/24 01/08/24 History trazodone 150 mg tablet 300 mg PO BEDTIME 10/09/22 07/07/24 07/06/24 History gabapentin 300 mg capsule 300 mg PO TID 02/04/23 07/07/24 07/06/24 History lovastatin 40 mg tablet 40 mg PO BEDTIME 02/05/23 07/07/24 07/06/24 History digoxin 125 mcg (0.125 mg) tablet 125 mcg PO DAILY #90 tabs 06/07/23 07/07/24 01/08/24 Rx metoprolol tartrate 25 mg tablet 25 mg PO Q12H 30 days #180 tabs 10/24/23 07/07/24 07/06/24 Rx hydrocortisone 2.5 % topical cream See Rx Instructions .Route .COMPLEX 02/11/24 07/07/24 07/06/24 History ketoconazole 2 % topical cream See Rx Instructions .Route .COMPLEX 02/11/24 07/07/24 07/06/24 History testosterone 1.62 % (40.5 mg/2.5 1 packet topical DAILY 02/11/24 07/07/24 07/06/24 History gram) transdermal gel packet rivaroxaban 20 mg tablet (Xarelto) 20 mg PO DAILY 03/04/24 07/07/24 Unknown History furosemide 20 mg tablet 20 mg PO DAILY 07/07/24 07/07/24 07/06/24 History Allergies Allergy/AdvReac Type Severity Reaction Status Date / Time oats Allergy DIARRHEA Verified 07/07/24 03:55 Opioids - Morphine Analogues Allergy ADR-Chest Verified 07/07/24 03:55 Pain caffeine AdvReac Unknown PALPITATION Verified 07/07/24 03:55 S apple AdvReac DIARRHEA, Verified 07/07/24 03:55 VOMITING AND CRAMPING meperidine [From Demerol] AdvReac EXCESSIVE Verified 07/07/24 03:55 SEDATION morphine AdvReac HALLUCINATI Verified 07/07/24 03:55 ONS berries Allergy Unknown Uncoded 07/07/24 03:55 raw tomatoes Allergy ADR-Gastrointestinal Uncoded 07/07/24 03:55 Upset FRYE AdvReac DIARRHEA Uncoded 07/07/24 03:55 PFSH Acute 2 PFSH: Medical History Orthostatic hypotension Cardiomegaly Afib Hypertension Acute respiratory failure with hypoxia and hypercapnia Tubular adenoma of colon Prolonged bleeding time Metastases to the liver Elevated CEA Liver mass Goiter Colon cancer screening Liver lesion Polycythemia Low testosterone in male Ileus Colon cancer Osteoarthritis 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 (~08/2022) hospitalized in [place] Chronic sinusitis of both maxillary sinuses Gout Asperger syndrome mild Dyslipidemia Degenerative joint disease (DJD) of lumbar spine Obstructive sleep apnea Chronic low back pain Substernal goiter Asthma Restrictive lung disease due to kyphoscoliosis Suspected exposure to asbestos Allergies Right renal stone Testosterone deficiency On TRT for 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 Erectile dysfunction Opioid contract exists previous Chronic pain syndrome Surgical History Hx of bilateral cataract extraction History of colostomy (11/01/22) Colostomy revision for control of bleeding History of exploratory laparotomy (10/15/22) Exploratory laparotomy with partial colon resection and with end colostomy formation Status post left hemicolectomy (10/08/22) laparoscopic converted to open, with splenic flexure takedown and right colon mobilization, primary anastamosis History of back surgery History of shoulder surgery History of appendectomy H/O arthroscopic knee surgery H/O ankle fusion H/O wrist surgery S/P ureteral stent placement Family History Grandfather CAD (coronary artery disease) Family/Other Cancer Grandmother Dementia Stroke Mother Lung disease Other Hypertension Denies family history of Rheumatoid arthritis Diabetes Lupus Clotting disorder Hyperlipidemia Chronic kidney disease (CKD) Suicide Anesthesia complication Bleeding disorder Social History Smoking and tobacco/nicotine status: never used tobacco/nicotine Quit status (tobacco/nicotine): has quit using Year quit tobacco: 1976 [id number] Second hand smoke exposure: Yes Alcohol intake: never Substance/Drug Use: never Lives independently: Yes Current occupational status: retired Pets and animals: Yes Do you think of yourself as: Straight/Heterosexual Current gender identity: Male Vitals/I&O/Wt Last Vital Signs Temp 98.0 F 07/07/24 03:49 Pulse 106 H 07/07/24 08:11 Resp 16 07/07/24 08:07 BP 106/63 07/07/24 08:11 Pulse Ox 96 07/07/24 08:07 O2 Del Method Room Air 07/07/24 08:07 O2 Flow Rate 0.5 07/07/24 06:24 07/06/24 07/07/24 07/07/24 22:59 06:59 14:59 Intake Total 1000 / 1000 1000 / 1000 Balance 1000 / 1000 1000 / 1000 Weight last 48 hrs Weight 138.346 kg Physical Exam 2 Narrative: General Exam is a white male, no distress HEENT: Pupils equally round. Lint Surgery noted. Oropharynx is clear, mucous membranes dry Neck is supple Cardiovascular tachycardic initially, currently appears regular. Lungs clear Abdomen is soft. Ostomy noted. Yellow/green liquid stool. Bowel sounds noted exam deferred Extremities no cyanosis clubbing or edema, cap refill brisk Skin no rash Neuro no obvious focal deficits Data 07/07/24 04:20 07/07/24 04:20 Other Labs: LFTs, magnesium, calcium, albumin normal TSH which I ordered normal Urinalysis no blood, 3-5 reds, 0-5 whites Digoxin level 0.6 C. difficile is pending Chest x-ray no obvious infiltrate, port noted, I reviewed this as well, rods in back Abdomen pelvis CT demonstrates some worsening of metastatic disease in the liver, possible tumor involvement rectosigmoid remnant, contour deformity right kidney consistent with past subcapsular hematoma Head CT negative, I reviewed this as well EKG which I reviewed demonstrates atrial fibrillation, rate of 110, left axis deviation, nonspecific ST-T wave changes, flipped T waves laterally A&P Assessment and plan (1) Syncope: Patient presents with syncope This is likely secondary to significant dehydration Doubt this is secondary to A-fib with RVR Note he had significant orthostatic hypotension Fall precautions Hydration as below Telemetry (2) Closed head injury: Patient presents with multiple complaints of head and neck pain, left knee pain and back pain. Small abrasion left knee, already with bandage. CT of head, x-ray of knee, CT abdomen pelvis which would have also imaged back where he complains of pain have been done. Check CT cervical spine. Neurochecks. (3) Acute kidney injury: Patient presents with acute kidney injury This is most likely secondary to diarrhea and dehydration Check CK No evidence of obstruction per CT Continue hydration with NS at 150 cc an hour BMP tomorrow (4) Orthostatic hypotension: Patient with significant orthostatic hypotension Hold his Lasix IV hydration Orthostatic blood pressures twice daily (5) Afib: Patient has past history of A-fib Continue digoxin Restart metoprolol when appropriate, when blood pressure is improved Continue rivaroxaban Telemetry Qualifiers: Atrial fibrillation type: longstanding persistent Qualified Code(s): I 48.11 - Longstanding persistent atrial fibrillation (6) Diarrhea: Patient with significant diarrhea C. difficile pending If negative consider stool culture. At that point would potentially give dose of Imodium if C. difficile is negative Hydration as above Request records from [facility] to determine chemotherapy he is currently on and whether that could contribute to his diarrhea. (7) Metastatic colon cancer to liver: Managed at [facility] Request records Plan Multiple other medical problems as outlined by past medical history Full code SCDs for DVT prophylaxis, as well as Xarelto which should suffice. Attestations 2 Medical Necessity Statement*: Will need less than 2 midnight stay for correction of acute kidney injury, treatment of orthostatic hypotension secondary to dehydration and diarrhea. Diagnoses Syncope R55 Closed head injury S09.90XA Acute kidney injury N17.9 Orthostatic hypotension I95.1 Longstanding persistent atrial fibrillation I48.11 Atrial fibrillation type: longstanding persistent Diarrhea R19.7 Metastatic colon cancer to liver C18.9; C78.7 Time Spent (min) 58
--- NOTE | 2024-07-07 09:06 | CT_ITS ---
WS: [id number] CT CERVICAL TRAUMA TECHNIQUE: Noncontrast CT of the cervical spine with coronal and sagittal reformatted images. CLINICAL INFORMATION: Fall, pain COMPARISON: None. DLP: 377.[address] scans at [facility] use at least one of these dose optimization techniques: automated e xposure control; mA and/or kV adjustment per patient size (includes targeted exams where dose is matc hed to clinical indication); or iterative reconstruction. FINDINGS: Mild cervical curve. Mild spondylitic changes. Straightening of the normal cervical lordosis. Anterio r hypertrophic changes. Postoperative changes partially visualized in the upper thoracic spine. Mild disc osteophyte protrusion C4-5 and C5-6. Normal craniocervical junction. Normal C1-C2 articulation. Dens is normal in appearance. Normal occip ital condyles. No high-grade spinal canal narrowing. Normal C1 ring. No evidence of acute fracture or dislocation. Normal prevertebral soft tissues. Mastoids air cells are well aerated. Enlarged nodular LEFT thyroid partially visualized. CT/CT cervical spin wo con* [id number] IMPRESSION: No evidence of acute fracture or dislocation.
[2024-07-07] MEDS: sodium chloride 0.9% 1,000 ML 150 ML IV ×3 (09:25→22:27)
[2024-07-07 09:41] LABS: Creatine Phosphokinase 57 U/L (39-308)
[2024-07-07 10:34] LABS: C.Diff PCR (Lab) POSITIVE (Negative)
[2024-07-07 10:38] LABS: Clostridioides Difficile Toxin NEGATIVE (Negative)
[2024-07-07 12:29] LABS: Adenovirus Not Detected (NOT DETECT); Chlamydia Pneumoniae Not Detected (NOT DETECT); Coronavirus 229E,HKU1,NL63,OC4 Not Detected (NOT DETECT); Human Metapneumovirus Not Detected (NOT DETECT); Human Rhinovirus/Enterovirus Not Detected (NOT DETECT); Influenza A Not Detected (NOT DETECT); Influenza A H1 Not Detected (NOT DETECT); Influenza A H1-2009 Not Detected (NOT DETECT); Influenza A H3 Not Detected (NOT DETECT); Influenza B Not Detected (NOT DETECT); Mycoplasma Pneumoniae Not Detected (NOT DETECT); Parainfluenza Virus Type 1 Not Detected (NOT DETECT); Parainfluenza Virus Type 2 Not Detected (NOT DETECT); Parainfluenza Virus Type 3 Not Detected (NOT DETECT); Parainfluenza Virus Type 4 Not Detected (NOT DETECT); Respiratory Syncytial Virus A Not Detected (NOT DETECT); Respiratory Syncytial Virus B Not Detected (NOT DETECT); SARS-COV-2 Not Detected (NOT DETECT)
[2024-07-07] MEDS: vancomycin 125 mg Capsule PO ×3 (14:34→20:22)
[2024-07-07] MEDS: gabapentin 300 mg Capsule PO ×2 (14:35→22:28)
[2024-07-07] MEDS: atorvastatin 40 mg Tablet 20 MG PO (20:22)
--- NOTE | 2024-07-07 20:29 | PC.NURSE ---
Patient states that he does not want his Gabapentin or Trazodone until 10:30 pm.
[2024-07-07] MEDS: trazodone 150 mg Tablet 300 MG PO (22:35)
[2024-07-08 04:00] VITALS: BP 117/67; PULSE 101; RESP 17; TEMP 36.6; O2SAT 94
[2024-07-08] MEDS: HYDROcodone-acetaminophen 5-325 mg Tablet 1 TAB PO ×2 (04:19→09:39)
[2024-07-08 05:04] LABS: Basophils % 0.3 %; Eosinophils # 0.4 10^3/uL (0.0-0.8); Eosinophils % 6.5 %; Lymphocytes # 1.7 10^3/uL (0.8-4.8); Lymphocytes % 26.6 %; Mean Corpuscular HGB Conc 32.3 g/dL (30-55); Mean Corpuscular Hemoglobin 32.2 pg (27-33); Mean Corpuscular Volume 99.8 fl (82-101); Mean Platelet Volume 9.5 fL (7.4-10.4); Monocytes # 0.7 10^3/uL (0.2-0.9); Monocytes % 11.2 %; Neutrophils # 3.42 10^3/uL (1.8-7.7); Neutrophils % 54.6 %; Nucleated Red Blood Cells % 0 %; Platelet Count 172 10^3/cmm (157-399); Red Blood Count 4.41 10^6/uL (3.85-5.65); Red Cell Distribution Width 16.2 % (12.1-15.1); White Blood Count 6.27 10^3/uL (3.29-11.43)
[2024-07-08 05:29] VITALS: PULSE 100
[2024-07-08 05:36] LABS: Alanine Aminotransferase 14 U/L (0-41); Albumin Level 3.6 g/dL (3.5-5.2); Alkaline Phosphatase 63 U/L (40-130); Anion Gap 14.6 (5-19); Aspartate Amino Transferase 16 U/L (0-40); Blood Urea Nitrogen 21 mg/dL (8-23); Calcium 7.9 mg/dL (8.5-10.5); Carbon Dioxide 22 mmol/L (22-29); Chloride 108 mmol/L (98-107); Creatinine Clr Calc Pharmacy 73.7944; Globulin 2.9 g/dL (1.3-4.6); Glomerular Filtration Rate 50.2 mL/min (90-130); Glucose 141 mg/dL (65-115); Magnesium 1.8 mg/dL (1.7-2.3); Osmolality Calculated 295 mOsm/kg (285-295); Potassium 4.6 mmol/L (3.5-5.1); Sodium 140 mmol/L (136-145); Total Bilirubin 0.3 mg/dL (0.15-1.2); Total Protein 6.5 g/dL (6.6-8.7)
[2024-07-08] MEDS: sodium chloride 0.9% 1,000 ML 150 ML IV (07:15)
[2024-07-08 08:00] VITALS: BP 103/69; BP 119/64; BP 137/79; BP 98/63; PULSE 107; PULSE 115; PULSE 95; PULSE 99; RESP 17; TEMP 36.7; O2SAT 94
--- NOTE | 2024-07-08 08:22 | P.PN_ITS ---
Documented by User: LUISITO Hubbard STDDEMAR 07/08/24 10:13 Subjective 2 Subjective: Patient is doing well today. Last night around 8pm, patient was still orthostatic and some dizziness still present on standing. Patient was been able to produce urine and is still having loose stools that fill the colostomy bag. Patient denies fever, chills, chest pain, SOB, abdominal pain. Vitals/I&O/Wt Last Vital Signs Temp 98.0 F 07/08/24 08:00 Pulse 95 07/08/24 08:00 Resp 17 07/08/24 08:00 BP 137/79 07/08/24 08:00 Pulse Ox 94 07/08/24 08:00 O2 Del Method Room Air 07/08/24 08:00 O2 Flow Rate 0.5 07/07/24 06:24 07/07/24 07/08/24 07/08/24 22:59 06:59 14:59 Intake Total 1880 / 3880 400 / 4280 Output Total 1450 / 2250 1600 / 3850 Balance 430 / 1630 -1200 / 430 Weight last 48 hrs Weight 305 lb 11.2 oz Weight 305 lb 9.6 oz Weight 305 lb Physical Exam 2 Neck/C-Spine: OTHER: Supple Resp: OTHER: Bilateral breath sounds, clear to auscultation, normal chest wall expansion Cardio: OTHER: Normal rate and rhythm without murmurs, gallops, or rubs GI: OTHER: Soft, nondistended, nontender with bowel sounds. Colostomy bag noted on right side. Extremity: OTHER: Reduced swelling and no cyanosis Data 07/08/24 04:13 07/08/24 04:13 A&P Assessment and plan (1) Syncope: Patient presented with syncope, likely secondary to significant dehydration Continued to have significant orthostatic hypotension last night, will recheck today Fall precautions Hydration with NS 150cc/hr Telemetry (2) Closed head injury: Patient presented with multiple complaints of head and neck pain, left knee pain and back pain. Small abrasion left knee. CT head, cervical spine and X-ray of knee showed to acute findings. (3) Acute kidney injury: Patient presented with acute kidney injury, likely secondary to diarrhea and dehydration CK was normal at 57 Cr has improved, decreased to 1.4 No evidence of obstruction per CT Continue hydration with NS at 150 cc an hour BMP tomorrow (4) Orthostatic hypotension: Patient with significant orthostatic hypotension Hold his Lasix IV hydration Orthostatic blood pressures twice daily (5) Afib: Patient has past history of A-fib Continue digoxin Restart Metoprolol 12.5 po BID Continue rivaroxaban Telemetry Qualifiers: Atrial fibrillation type: longstanding persistent Qualified Code(s): I 48.11 - Longstanding persistent atrial fibrillation (6) Diarrhea: C. difficile PCR positive, toxin negative, started patient on vanc yesterday Stool culture pending Hydration as above Request records from [facility] to determine chemotherapy he is currently on and whether that could contribute to his diarrhea. (7) Metastatic colon cancer to liver: Managed at [facility] Request records Plan Full code continue statin, gabapentin, zofran, allopurinol, trazodone SCDs and Xarelto for DVT prophylaxis Coding Level of Care Code 57912 Diagnoses Syncope R55 Closed head injury S09.90XA Acute kidney injury N17.9 Orthostatic hypotension I95.1 Longstanding persistent atrial fibrillation I48.11 Atrial fibrillation type: longstanding persistent Diarrhea R19.7 Metastatic colon cancer to liver C18.9; C78.7 Time Spent (min) 24 Documented by User: Piotr Rivera MD 07/08/24 10:14 Subjective 2 Medications: Reviewed: Yes Data 07/08/24 04:13 07/08/24 04:13 A&P Assessment and plan (1) Syncope: Patient presented with syncope, likely secondary to significant dehydration Continued to have significant orthostatic hypotension last night, will recheck today Fall precautions Reduce to 100 cc an hour. Telemetry Appears to be significantly improving (2) Closed head injury: (3) Acute kidney injury: Patient presented with acute kidney injury, likely secondary to diarrhea and dehydration CK was normal at 57 Cr has improved, decreased to 1.4 No evidence of obstruction per CT Reduce saline to 100 cc an hour. BMP tomorrow (4) Orthostatic hypotension: Patient with significant orthostatic hypotension Hold his Lasix IV hydration has helped Orthostatic blood pressures twice daily (5) Afib: Qualifiers: Atrial fibrillation type: longstanding persistent Qualified Code(s): I 48.11 - Longstanding persistent atrial fibrillation (6) Diarrhea: (7) Metastatic colon cancer to liver: Attestations 2 Medical Necessity Statement*: May need continued hospitalization, with readdition of metoprolol, to make sure blood pressure does not drop, orthostasis goes away. Will reassess this afternoon for potential discharge. Diagnoses Syncope R55 Closed head injury S09.90XA Acute kidney injury N17.9 Orthostatic hypotension I95.1 Longstanding persistent atrial fibrillation I48.11 Atrial fibrillation type: longstanding persistent Diarrhea R19.7 Metastatic colon cancer to liver C18.9; C78.7 Time Spent (min) 24
[2024-07-08 09:32] VITALS: PULSE 95
[2024-07-08] MEDS: vancomycin 125 mg Capsule PO ×2 (09:32→12:55)
[2024-07-08] MEDS: digoxin 125 mcg Tablet PO (09:32)
[2024-07-08] MEDS: allopurinol 300 mg Tablet PO (09:33)
[2024-07-08] MEDS: metoprolol tartrate 25 mg Tablet 12.5 MG PO (09:33)
[2024-07-08] MEDS: rivaroxaban 10 mg Tablet 20 MG PO (09:33)
[2024-07-08] MEDS: gabapentin 300 mg Capsule PO (09:33)
[2024-07-08 10:52] LABS: Cortisol Random 9.14 ug/dL (2.47-19.5)
[2024-07-08 11:47] VITALS: BP 104/66; BP 112/62; BP 113/73; PULSE 103; PULSE 88; PULSE 92; PULSE 94; RESP 18; TEMP 36.8; O2SAT 94
--- NOTE | 2024-07-08 13:14 | PM.DCS ---
Discharge Providers Date of Admission: 07/07/24 11:06 Date of Discharge: July 08, 2024 Attending Provider at Admission: Piotr Rivera MD Attending Provider at Discharge: Piotr Rivera MD Primary Care Provider: Al Álvarez MD Diagnoses at Discharge Discharge Diagnosis (1) Syncope: Status: Acute (2) Closed head injury: Status: Acute (3) Acute kidney injury: Status: Acute (4) Orthostatic hypotension: Status: Acute (5) Afib: Status: Acute Qualifiers: Atrial fibrillation type: longstanding persistent Qualified Code(s): I48.11 - Longstanding persistent atrial fibrillation (6) Diarrhea: Status: Acute (7) Metastatic colon cancer to liver: Status: Acute Reason for Visit Reason for Visit: fell in [place] [facility] Hospital Course Hospital Course Charan is a 69-year-old white male with history of metastatic colon cancer who came in from home with diarrhea, fall, dehydration, acute kidney injury. He was hydrated, stool was analyzed for C. difficile, and he was started on vancomycin. C. difficile PCR positive, toxin negative. Stool culture pending. He improved while in the hospital and orthostasis went away. It was thought he could discharge home, minus his Lasix, and have close follow-up with his primary care provider. CT findings will be sent to his oncologist for further follow-up. They did not show any severe colitis, perforation, etc. They did show malignancy advancement. He will finish up vancomycin 125 mg 4 times daily for the next 10 days. This could be extended if he has continued symptoms or, or even tapered. He was able to ask questions and agreed with the plan. CT head and neck were also done secondary to fall and he had no acute abnormalities. Physical Exam Narrative: See exam done earlier today Discharge Data Studies Completed and Pending Completed Studies During Hospitalization Category Date Time Status CT abdomen pelvis wo con [id number] Stat Cat Scan 07/07/24 06:[address] cervical spin wo con* [id number] Stat Cat Scan 07/07/24 09:[address] head wo con* [id number] Stat Cat Scan 07/07/24 03:59 Completed XR chest 1V portable [id number] Stat Exams 07/07/24 07:34 Completed XR knee LT 3V* [id number] Stat Exams 07/07/24 08:03 Completed Pending at discharge Category Date Time Status BMP [Basic Metabolic Panel] AM LABS Lab 07/09/24 04:00 Ordered CBC Auto Diff [Complete Blood Count w/Auto] AM LABS Lab 07/09/24 04:00 Ordered MAG [Magnesium] AM LABS Lab 07/09/24 04:00 Ordered OVA and Parasites, Conc and PE Routine Lab 07/07/24 16:06 Received Stool Culture - Enteric [Salmonella / Shigella / Campy] Lab 07/07/24 16:06 Received Routine Radiology Impressions Head CT 07/07/24 03:59 IMPRESSION: 1. No acute intracranial findings. Abdomen/Pelvis CT 07/07/24 06:48 IMPRESSION: 1. Interval worsening in metastatic disease to the liver superimposed upon fatty infiltration of the liver. 2. Suspect tumor nodule involving the rectosigmoid remnant. 3. Status post subtotal colectomy. 4. Contour deformity involving the right kidney likely related to patient's known subcapsular hematoma. Please note that the hematoma is not well delineated on this noncontrast exam. 5. Please see above comments for additional details. COMMENTS: Consistent with the [employer]'s Incidental Findings Committee white paper (J Am Dg Radiol 2018): Any incidental renal lesion less than 1 cm or classified as too small to characterize, or any incidental cystic renal lesion characterized as simple-appearing, is likely benign. No follow-up imaging is recommended for these lesions per consensus recommendations based on imaging criteria. Chest X-Ray 07/07/24 07:34 IMPRESSION: No acute chest abnormality with improvement in cephalization of pulmonary blood flow compared to the previous study. Knee X-Ray 07/07/24 08:03 IMPRESSION: 1. Osteoarthritis. 2. Indeterminate small lucency involving the proximal tibial metaphysis unchanged. Cervical Spine CT 07/07/24 09:06 IMPRESSION: No evidence of acute fracture or dislocation. Laboratory Results WBC 6.27 10^3/uL (3.29-11.43) 07/08/24 04:13 RBC 4.41 10^6/uL (3.85-5.65) 07/08/24 04:13 Hgb 14.20 g/dL (11.27-16.99) 07/08/24 04:13 Hct 44.0 % (37-53) 07/08/24 04:13 MCV 99.8 fl (82-101) 07/08/24 04:13 MCH 32.2 pg (27-33) 07/08/24 04:13 MCHC 32.3 g/dL (30-55) 07/08/24 04:13 RDW 16.2 % (12.1-15.1) H 07/08/24 04:13 Plt Count 172 10^3/cmm (157-399) 07/08/24 04:13 MPV 9.5 fL (7.4-10.4) 07/08/24 04:13 Neut % (Auto) 54.6 % 07/08/24 04:13 Lymph % (Auto) 26.6 % 07/08/24 04:13 [place] % (Auto) 11.2 % 07/08/24 04:13 Eos % (Auto) 6.5 % 07/08/24 04:13 Baso % (Auto) 0.3 % 07/08/24 04:13 Neut # (Auto) 3.42 10^3/uL (1.8-7.7) 07/08/24 04:13 Lymph # (Auto) 1.7 10^3/uL (0.8-4.8) 07/08/24 04:13 [place] # (Auto) 0.7 10^3/uL (0.2-0.9) 07/08/24 04:13 Eos # (Auto) 0.4 10^3/uL (0.0-0.8) 07/08/24 04:13 Baso # (Auto) 0.0 10^3/uL (0.0-0.1) 07/08/24 04:13 Nucleated RBC % (auto) 0 % 07/08/24 04:13 Nucleated RBCs # 0.0 /100WBC 07/08/24 04:13 PT 13.90 SECONDS (12.1-14.9) 07/07/24 04:20 INR 1.04 (0.8-1.2) 07/07/24 04:20 Sodium 140 mmol/L (136-145) 07/08/24 04:13 Potassium 4.6 mmol/L (3.5-5.1) 07/08/24 04:13 Chloride 108 mmol/L (98-107) H 07/08/24 04:13 Carbon Dioxide 22 mmol/L (22-29) 07/08/24 04:13 Anion Gap 14.6 (5-19) 07/08/24 04:13 BUN 21 mg/dL (8-23) 07/08/24 04:13 Creatinine 1.4 mg/dL (0.7-1.2) H 07/08/24 04:13 GFR Calculation 50.2 mL/min (90-130) L 07/08/24 04:13 Glucose 141 mg/dL (65-115) H 07/08/24 04:13 Calculated Osmolality 295 mOsm/kg (285-295) 07/08/24 04:13 Calcium 7.9 mg/dL (8.5-10.5) L 07/08/24 04:13 Magnesium 1.8 mg/dL (1.7-2.3) 07/08/24 04:13 Total Bilirubin 0.3 mg/dL (0.15-1.2) 07/08/24 04:13 AST 16 U/L (0-40) 07/08/24 04:13 ALT 14 U/L (0-41) 07/08/24 04:13 Alkaline Phosphatase 63 U/L (40-130) 07/08/24 04:13 Creatine Kinase 57 U/L (39-308) 07/07/24 04:20 Total Protein 6.5 g/dL (6.6-8.7) L 07/08/24 04:13 Albumin 3.6 g/dL (3.5-5.2) 07/08/24 04:13 Globulin 2.9 g/dL (1.3-4.6) 07/08/24 04:13 TSH 3.97 uIU/mL (0.27-4.20) 07/07/24 04:20 Random Cortisol 9.14 ug/dL (2.47-19.5) 07/08/24 04:13 Urine Color Dark yellow (Yellow) A 07/07/24 04:54 Urine Appearance Cloudy (CLEAR) A 07/07/24 04:54 Urine pH 5.0 (5-7) 07/07/24 04:54 Ur Specific [place] 1.032 (1.005-1.030) H 07/07/24 04:54 Urine Protein 3+ (Negative) A 07/07/24 04:54 Urine Glucose (UA) Negative (Normal) 07/07/24 04:54 Urine Ketones Trace (Negative) 07/07/24 04:54 Urine Blood Negative (Negative) 07/07/24 04:54 Urine Nitrate Negative (Negative) 07/07/24 04:54 Urine Bilirubin 1+ (Negative) H 07/07/24 04:54 Urine Urobilinogen 1.0 mg/dL (Negative) 07/07/24 04:54 Ur Leukocyte Esterase Trace (Negative) A 07/07/24 04:54 Urine RBC 3-5 /hpf (0-2) 07/07/24 04:54 Urine WBC 0-5 /hpf (0-5) 07/07/24 04:54 Ur Squamous Epith Cells 0-5 /hpf (0-5) 07/07/24 04:54 Amorphous Sediment 2+ /hpf 07/07/24 04:54 Urine Bacteria None seen /hpf (NONE) 07/07/24 04:54 Hyaline Casts 54.20 /lpf 07/07/24 04:54 Urine Mucus 2+ /hpf 07/07/24 04:54 Digoxin 0.6 ng/mL (0.6-1.2) 07/07/24 04:20 C. difficile (PCR) Positive (Negative) H 07/07/24 08:08 C.difficile Tox Confrm Negative (Negative) 07/07/24 08:08 Coronavirus 229E (PCR) Not detected (NOT DETECT) 07/07/24 10:18 SARS-CoV-2 (PCR) Not detected (NOT DETECT) 07/07/24 10:18 Vitals Last Vital Signs Temp 98.3 F 07/08/24 11:47 Pulse 94 07/08/24 11:47 Resp 18 07/08/24 11:47 BP 113/73 07/08/24 11:47 Pulse Ox 94 07/08/24 11:47 O2 Del Method Room Air 07/08/24 11:47 O2 Flow Rate 0.5 07/07/24 06:24 Discharge Plan Discharge Patient Disposition: Home Condition: Stable Prescriptions: New vancomycin 125 mg Capsule 125 mg PO QID Qty: 40 0RF Continued allopurinol 300 mg tablet 300 mg PO DAILY multivitamin Tablet 6 tab PO DAILY@2200 lycopene 10 mg capsule 10 mg PO DAILY resveratrol 250 mg capsule 250 mg PO QPM saw palmetto 500 mg capsule 500 mg PO DAILY lovastatin 40 mg tablet 40 mg PO BEDTIME metoprolol tartrate 25 mg tablet 25 mg PO Q12H 30 Days Qty: 180 3RF Xarelto 20 mg tablet 20 mg PO DAILY digoxin 125 mcg (0.125 mg) tablet 125 mcg PO DAILY Qty: 90 3RF sennosides [senna] 8.6 mg Tablet 8.6 mg PO DAILY PRN (Reason: Constipation) loratadine [Claritin] 10 mg tablet 10 mg PO DAILY PRN (Reason: ALLERGIES) acetaminophen 500 mg Tablet 500 mg PO Q6H PRN (Reason: Pain) trazodone 150 mg tablet 300 mg PO BEDTIME cholecalciferol (vitamin D3) [Vitamin D3] 10 mcg (400 unit) Capsule 10 mcg PO DAILY melatonin 5 mg Tablet 10 mg PO BEDTIME ketoconazole 2 % shampoo 1 applic TOPICAL DAILY PRN (Reason: Rash) gabapentin 300 mg capsule 300 mg PO TID hydrocortisone 2.5 % cream See Rx Instructions .ROUTE .COMPLEX Rx Instructions: MIX WITH EQUAL PARTS WITH KETOCONAZOLE CREAM AND APPLY RASH ON FACE, SCALP AND EARS TWICE DAILY WHEN RASH IS PRESENT ketoconazole 2 % cream See Rx Instructions .ROUTE .COMPLEX Rx Instructions: MIX WITH EQUAL PARTS WITH HYDROCORTISONE AND APPLY TO RASH ON FACE, SCALP AND EARS TWICE DAILY NEEDED testosterone 1.62 % (40.5 mg/2.5 gram) gel in packet 1 packet topical DAILY Discontinued furosemide 20 mg tablet 20 mg PO DAILY Discharge Orders: Discharge Order (Routine); Ordered 07/08/24 Ordered By: Piotr Rivera Referrals: Al Álvarez MD [Primary Care Provider] - 4-7 days Discharge Diet: Usual diet Discharge Activity: Increase activity as tolerated Patient Instructions: Opioid Safety Activity Restrictions/Additional Instructions: Encourage fluids Patient requested meds to beds, please provide Have him sign a release to send CT scan results to [facility] Follow-up with [facility] within the next week Follow-up with your primary care provider 3 to 5 days Vancomycin should be 4 times daily, for minimum of 10 days. If still symptomatic with loose stool this could be extended, discussed with your primary care provider. Do not take your Lasix. Discharge Attestations Time Spent in Discharge Care*: greater than 30 min Quality Metrics Clinical Quality Measures [ No reported AMI, CVA or VTE this stay] Coding Level of Care Code 11165 Total time (in minutes) for Discharge: 46 Diagnoses Syncope R55 Closed head injury S09.90XA Acute kidney injury N17.9 Orthostatic hypotension I95.1 Longstanding persistent atrial fibrillation I48.11 Atrial fibrillation type: longstanding persistent Diarrhea R19.7 Metastatic colon cancer to liver C18.9; C78.7
[2024-07-08 15:52] VITALS: BP 113/73; PULSE 88; RESP 18; TEMP 36.8; O2SAT 94
== END 2024-07-08 15:53 | disposition home or self-care (01) ==
LOC: ER 08:44 → MEDSURG 11:06
PROVIDERS: Emergency Medicine; Admitting Provider Internal Medicine; Emergency Provider Family Medicine; PCP Family Medicine; Visit Provider Internal Medicine
DX: R55 Syncope and collapse (principal); S09.90XA Unspecified injury of head, initial encounter; W19.XXXA Unspecified fall, initial encounter; N17.9 Acute kidney failure, unspecified; I95.1 Orthostatic hypotension; I48.11 Longstanding persistent atrial fibrillation; R19.7 Diarrhea, unspecified; C18.9 Malignant neoplasm of colon, unspecified; C78.7 Secondary malignant neoplasm of liver and intrahepatic bile duct; Z91.81 History of falling; E86.0 Dehydration; I10 Essential (primary) hypertension; Z86.16 Personal history of COVID-19; E78.5 Hyperlipidemia, unspecified
CPT/HCPCS: 36591; 70450; 71045; 72125; 73562; 74176; 80053; 80162; 81001; 82533; 82550; 83735; 84443; 85025; 85610; 87045; 87177; 87209; 87324; 87427; 87449; 87493; 87635; 93005; 96361; 96374; 99285; G0378; J7030

== ENCOUNTER → 2024-08-07 08:34 | Outpatient (BNVA) | payer MEDICARE, SELFPAY | PROVIDERS: PCP Family Medicine; Visit Provider Specialist | DX: M17.11 Unilateral primary osteoarthritis, right knee (principal) | CPT/HCPCS: 20610; J1100; J2795; J3301 ==

== ENCOUNTER 2024-10-05 21:59 | Emergency (ER) | payer MEDICARE, SELFPAY ==
[2024-10-05 22:03] VITALS: BP 109/78; PULSE 102; RESP 16; TEMP 36.7; O2SAT 94; BMI 37.5
--- NOTE | 2024-10-05 22:03 | XRR_ITS ---
PROCEDURE INFORMATION: Exam: XR Abdomen Exam date and time: 10/05/2024 10:05 PM Age: 69 years old Clinical indication: Abdominal tenderness; Prior surgery; Surgery date: 6+ months; Surgery type: Appy, colostomy, hemicoloectomy, spine; Additional info: Abdominal pain TECHNIQUE: Imaging protocol: Radiologic exam of the abdomen. Views: 2 Views. Upright and supine views. COMPARISON: CT abdomen pelvis con [id number] 07/07/2024 6:58 AM FINDINGS: Tubes, catheters and devices: Right-sided Port-A-Cath. Heart/Mediastinum: Cardiomegaly. Gastrointestinal tract: Normal. No bowel dilation. Intraperitoneal space: Normal. No free air. Bones/joints: Surgical hardware in the spine. XR/XR acute abdomen series [id number] IMPRESSION: Cardiomegaly, negative for infiltrate or bowel dilation.
--- NOTE | 2024-10-05 22:34 | W.ED.NAVMDI ---
HPI - Nausea/Vomiting/Diarrhea General: Chief complaint: Nausea/Vomiting/Diarrhea Stated complaint: n/v/d Time Seen by Provider: 10/05/24 22:00 History of Present Illness: 69-year-old male with history of colon and lung cancer with a colostomy in place who presents emergency room with nausea vomiting, weakness, dizziness and watery output in his ostomy bag. He has had some cramping abdominal pain but nothing focal. He says he is concerned he may have C. difficile again. He says that whenever he has watery output like this he is had C. difficile multiple times in the past. Related Data Home Medications Medication Instructions Recorded Confirmed allopurinol 300 mg tablet 300 mg PO DAILY 10/15/19 08/07/24 multivitamin 6 tab PO DAILY@2200 10/15/19 08/07/24 sennosides 8.6 mg tablet (senna) 8.6 mg PO DAILY PRN Constipation 10/27/19 08/07/24 lycopene 10 mg capsule 10 mg PO DAILY 11/15/20 08/07/24 resveratrol 250 mg capsule 250 mg PO QPM 11/15/20 08/07/24 saw palmetto 500 mg capsule 500 mg PO DAILY 11/15/20 08/07/24 loratadine 10 mg tablet (Claritin) 10 mg PO DAILY PRN ALLERGIES 11/21/21 08/07/24 ketoconazole 2 % shampoo 1 applic topical DAILY PRN Rash 07/18/22 08/07/24 acetaminophen 500 mg tablet 500 mg PO Q6H PRN Pain 10/09/22 08/07/24 cholecalciferol (vitamin D3) 10 10 mcg PO DAILY 10/09/22 08/07/24 mcg (400 unit) capsule (Vitamin D3) melatonin 5 mg tablet 10 mg PO BEDTIME 10/09/22 08/07/24 trazodone 150 mg tablet 300 mg PO BEDTIME 10/09/22 08/07/24 gabapentin 300 mg capsule 300 mg PO TID 02/04/23 08/07/24 lovastatin 40 mg tablet 40 mg PO BEDTIME 02/05/23 08/07/24 hydrocortisone 2.5 % topical cream See Rx Instructions .Route .COMPLEX 02/11/24 08/07/24 ketoconazole 2 % topical cream See Rx Instructions .Route .COMPLEX 02/11/24 08/07/24 testosterone 1.62 % (40.5 mg/2.5 1 packet topical DAILY 02/11/24 08/07/24 gram) transdermal gel packet rivaroxaban 20 mg tablet (Xarelto) 20 mg PO DAILY 03/04/24 08/07/24 Previous Rx's Medication Instructions Recorded metoprolol tartrate 25 mg tablet 25 mg PO Q12H 30 days #180 tabs 10/24/23 vancomycin 125 mg capsule 125 mg PO QID #40 caps 07/08/24 digoxin 125 mcg (0.125 mg) tablet See Rx Instructions .Route 07/15/24 .COMPLEX #90 tabs ondansetron 8 mg disintegrating 8 mg PO Q6H #14 tabs 10/06/24 tablet vancomycin 25 mg/mL oral solution 125 mg (5 mL) PO Q6H 10 days #200 10/06/24 mL Allergies Allergy/AdvReac Type Severity Reaction Status Date / Time blackberry Allergy Unknown ADR-Diarrhe Verified 10/05/24 22:06 a blueberry Allergy Unknown ADR-Diarrhe Verified 10/05/24 22:06 a raspberry Allergy Unknown ADR-Diarrhe Verified 10/05/24 22:06 a strawberry Allergy Unknown ADR-Diarrhe Verified 10/05/24 22:06 a tomato Allergy Unknown ADR-Gastrointestinal Verified 10/05/24 22:06 Upset oats Allergy DIARRHEA Verified 10/05/24 22:06 Opioids - Morphine Analogues Allergy ADR-Chest Verified 10/05/24 22:06 Pain caffeine AdvReac Unknown PALPITATION Verified 10/05/24 22:06 S apple AdvReac DIARRHEA, Verified 10/05/24 22:06 VOMITING AND CRAMPING meperidine [From Demerol] AdvReac EXCESSIVE Verified 10/05/24 22:06 SEDATION morphine AdvReac HALLUCINATI Verified 10/05/24 22:06 ONS Review of Systems Narrative: Constitutional symptoms: Negative except as documented in HPI. Skin symptoms: Negative except as documented in HPI. Eye symptoms: Negative except as documented in HPI. ENMT symptoms: Negative except as documented in HPI. Respiratory symptoms: Negative except as documented in HPI. Cardiovascular symptoms: Negative except as documented in HPI. Gastrointestinal symptoms: Negative except as documented in HPI. Genitourinary symptoms: Negative except as documented in HPI. Musculoskeletal symptoms: Negative except as documented in HPI. Neurologic symptoms: Negative except as documented in HPI. Psychiatric symptoms: Negative except as documented in HPI. Endocrine symptoms: Negative except as documented in HPI. 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 (~08/2022) hospitalized in [place] Chronic sinusitis of both maxillary sinuses Gout Asperger syndrome mild Dyslipidemia Degenerative joint disease (DJD) of lumbar spine Obstructive sleep apnea Chronic low back pain Substernal goiter Asthma Restrictive lung disease due to kyphoscoliosis Suspected exposure to asbestos Allergies Right renal stone Testosterone deficiency On TRT for 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 Erectile dysfunction Opioid contract exists previous Chronic pain syndrome Surgical History Hx of bilateral cataract extraction History of colostomy (11/01/22) Colostomy revision for control of bleeding History of exploratory laparotomy (10/15/22) Exploratory laparotomy with partial colon resection and with end colostomy formation Status post left hemicolectomy (10/08/22) laparoscopic converted to open, with splenic flexure takedown and right colon mobilization, primary anastamosis History of back surgery History of shoulder surgery History of appendectomy H/O arthroscopic knee surgery H/O ankle fusion H/O wrist surgery S/P ureteral stent placement Family History Grandfather CAD (coronary artery disease) Family/Other Cancer Grandmother Dementia Stroke Mother Lung disease Other Hypertension Denies family history of Rheumatoid arthritis Diabetes Lupus Clotting disorder Hyperlipidemia Chronic kidney disease (CKD) Suicide Anesthesia complication Bleeding disorder Social History Smoking and tobacco/nicotine status: never used tobacco/nicotine Quit status (tobacco/nicotine): has quit using Year quit tobacco: 1975 [id number] Second hand smoke exposure: Yes Alcohol intake: never Substance/Drug Use: never Lives independently: Yes Current occupational status: retired Pets and animals: Yes Do you think of yourself as: Straight/Heterosexual Current gender identity: Male Physical Exam Narrative: EXAM NARRATIVE: General: Alert, no acute distress. Skin: Warm, dry. Head: Normocephalic, atraumatic. Neck: Supple, trachea midline. Eye: Extraocular movements are intact. Ears, nose, mouth and throat: mucosa moist. Cardiovascular: Regular, Normal peripheral perfusion. Respiratory: Lungs are clear to auscultation, respirations are non-labored, breath sounds are equal, Symmetrical chest wall expansion. Gastrointestinal: Soft, Nontender, Non distended, patient does have copious watery stool in his ostomy bag. Musculoskeletal: Normal ROM, no deformity. Neurological: Alert and oriented, No focal neurological deficit observed. Psychiatric: Cooperative, appropriate mood & affect. Course Vital Signs: Vital signs: Vital Signs Temperature 98.0 F 10/05/24 22:03 Pulse Rate 109 H 10/06/24 01:19 Respiratory Rate 16 10/06/24 01:19 Blood Pressure 156/106 10/06/24 01:19 Pulse Oximetry 91 10/06/24 01:19 Oxygen Delivery Me thod Room Air 10/05/24 23:39 MDM - Nausea/Vomiting/Diarrhea Medical Decision Making Medical decision making: Differential diagnosis for this patient with nausea and vomiting including but not limited to and based on the above HPI, review of systems and physical exam: Urinary tract infection. Appendicitis. Cholecystis. colitis. small bowel obstruction. crohn's flare. pancreatitis. gastritis. peptic ulcer. cyclic vomiting. Viral illness. Influenza. COVID. - Workup - labwork and imaging ordered to evaluate, rule in and rule out above pathologies. Lab Review: Laboratory results were reviewed and interpreted by myself the emergency room physician. No leukocytosis. No anemia. Mild increase in his renal function. BUN and creatinine are 16 and 1.3. C. difficile PCR is positive. Acute abdominal series: chest x-ray: No acute process. No obvious infiltrates. No pneumothorax. No cardiomegaly. This was reviewed and interpreted by myself the emergency room physician Abdomen x-ray: Nonspecific bowel gas pattern. No evidence of free air or obstruction. This was reviewed and interpreted by myself the emergency room physician. I also reviewed the radiology report. I reviewed the patient's medical record. Reexamination: Patient is now tolerating fluids. He tolerated oral vancomycin. No altered mental status. No focal motor deficits. He feels okay to go home. I offered admission. Assessment and plan: Colitis Dehydration Vomiting ?Normal saline bolus, IV Zofran, p.o. vancomycin. - Discharged home - Discussed findings and plan with patient. Answered any questions. - All laboratory values were reviewed and interpreted personally by myself, the ER physician - All imaging was reviewed and interpreted personally by myself, the ER physician. - Evaluation and treatment of this problem were appropriate in the emergency setting Lab Data 10/05/24 22:24 10/05/24 22:24 Radiology Impressions Chest/Abdomen X-ray 10/05/24 22:03 IMPRESSION: Cardiomegaly, negative for infiltrate or bowel dilation. Laboratory Results WBC 5.57 10^3/uL (3.29-11.43) 10/05/24 22:24 RBC 5.04 10^6/uL (3.85-5.65) 10/05/24 22:24 Hgb 16.40 g/dL (11.27-16.99) 10/05/24 22:24 Hct 50.3 % (37-53) 10/05/24 22:24 MCV 99.8 fl (82-101) 10/05/24 22:24 MCH 32.5 pg (27-33) 10/05/24 22:24 MCHC 32.6 g/dL (30-55) 10/05/24 22:24 RDW 15.1 % (12.1-15.1) 10/05/24 22:24 Plt Count 221 10^3/cmm (157-399) 10/05/24 22:24 MPV 9.1 fL (7.4-10.4) 10/05/24 22:24 Neut % (Auto) 66.5 % 10/05/24 22:24 Lymph % (Auto) 21.9 % 10/05/24 22:24 [place] % (Auto) 5.9 % 10/05/24 22:24 Eos % (Auto) 4.3 % 10/05/24 22:24 Baso % (Auto) 0.9 % 10/05/24 22:24 Neut # (Auto) 3.70 10^3/uL (1.8-7.7) 10/05/24 22:24 Lymph # (Auto) 1.2 10^3/uL (0.8-4.8) 10/05/24 22:24 [place] # (Auto) 0.3 10^3/uL (0.2-0.9) 10/05/24 22:24 Eos # (Auto) 0.2 10^3/uL (0.0-0.8) 10/05/24 22:24 Baso # (Auto) 0.1 10^3/uL (0.0-0.1) 10/05/24 22:24 Nucleated RBC % (auto) 0 % 10/05/24 22:24 Nucleated RBCs # 0.0 /100WBC 10/05/24 22:24 Sodium 137 mmol/L (136-145) 10/05/24 22:24 Potassium 5.0 mmol/L (3.5-5.1) 10/05/24 22:24 Chloride 96 mmol/L (98-107) L 10/05/24 22:24 Carbon Dioxide 27 mmol/L (22-29) 10/05/24 22:24 Anion Gap 19.0 (5-19) 10/05/24 22:24 BUN 16 mg/dL (8-23) 10/05/24 22:24 Creatinine 1.3 mg/dL (0.7-1.2) H 10/05/24 22:24 GFR Calculation 54.7 mL/min (90-130) L 10/05/24 22:24 Glucose 180 mg/dL (65-115) H 10/05/24 22:24 Calculated Osmolality 290 mOsm/kg (285-295) 10/05/24 22:24 Lactic Acid 3.8 mmol/L (0.5-2.2) H 10/05/24 22:24 Calcium 10.1 mg/dL (8.5-10.5) 10/05/24 22:24 Total Bilirubin 0.5 mg/dL (0.15-1.2) 10/05/24 22:24 AST 19 U/L (0-40) 10/05/24 22:24 ALT 17 U/L (0-41) 10/05/24 22:24 Alkaline Phosphatase 67 U/L (40-130) 10/05/24 22:24 C-Reactive Protein 22.6 mg/L (0.0-4.9) H 10/05/24 22:24 Total Protein 7.7 g/dL (6.6-8.7) 10/05/24 22:24 Albumin 4.4 g/dL (3.5-5.2) 10/05/24 22:24 Globulin 3.3 g/dL (1.3-4.6) 10/05/24 22:24 Lipase 53 U/L (13-60) 10/05/24 22:24 Urine Color Yellow (Yellow) 10/05/24 23:37 Urine Appearance Clear (CLEAR) 10/05/24 23:37 Urine pH 5.0 (5-7) 10/05/24 23:37 Ur Specific [place] 1.023 (1.005-1.030) 10/05/24 23:37 Urine Protein 2+ (Negative) A 10/05/24 23:37 Urine Glucose (UA) Negative (Normal) 10/05/24 23:37 Urine Ketones Negative (Negative) 10/05/24 23:37 Urine Blood Negative (Negative) 10/05/24 23:37 Urine Nitrate Negative (Negative) 10/05/24 23:37 Urine Bilirubin Negative (Negative) 10/05/24 23:37 Urine Urobilinogen 1.0 mg/dL (Negative) 10/05/24 23:37 Ur Leukocyte Esterase Negative (Negative) 10/05/24 23:37 Urine RBC 0-2 /hpf (0-2) 10/05/24 23:37 Urine WBC 0-5 /hpf (0-5) 10/05/24 23:37 Ur Squamous Epith Cells 0-5 /hpf (0-5) 10/05/24 23:37 Amorphous Sediment Not Reportable 10/05/24 23:37 Urine Bacteria None seen /hpf (NONE) 10/05/24 23:37 Hyaline Casts 15.28 /lpf 10/05/24 23:37 C. difficile (PCR) Positive (Negative) H 10/05/24 23:08 All radiology interpretation(s) finalized by discharge Discharge Plan Discharge Patient Disposition: Home Clinical Impression: Vomiting, Clostridium difficile colitis, Dehydration Condition: Stable Prescriptions: New ondansetron 8 mg tablet,disintegrating 8 mg PO Q6H Qty: 14 0RF Rx Instructions: Take 1/2-1 tab every 6 hours as needed for nausea and vomiting vancomycin 25 mg/mL recon soln 125 mg PO Q6H 10 Days Qty: 200 0RF No Action allopurinol 300 mg tablet 300 mg PO DAILY multivitamin Tablet 6 tab PO DAILY@2200 lycopene 10 mg capsule 10 mg PO DAILY resveratrol 250 mg capsule 250 mg PO QPM saw palmetto 500 mg capsule 500 mg PO DAILY lovastatin 40 mg tablet 40 mg PO BEDTIME metoprolol tartrate 25 mg tablet 25 mg PO Q12H 30 Days Qty: 180 3RF Xarelto 20 mg tablet 20 mg PO DAILY digoxin 125 mcg (0.125 mg) tablet See Rx Instructions .ROUTE .COMPLEX Qty: 90 3RF Dose Instruction: Take 1 tablet by mouth once daily Rx Instructions: Take 1 tablet by mouth once daily sennosides [senna] 8.6 mg Tablet 8.6 mg PO DAILY PRN (Reason: Constipation) loratadine [Claritin] 10 mg tablet 10 mg PO DAILY PRN (Reason: ALLERGIES) acetaminophen 500 mg Tablet 500 mg PO Q6H PRN (Reason: Pain) trazodone 150 mg tablet 300 mg PO BEDTIME cholecalciferol (vitamin D3) [Vitamin D3] 10 mcg (400 unit) Capsule 10 mcg PO DAILY melatonin 5 mg Tablet 10 mg PO BEDTIME ketoconazole 2 % shampoo 1 applic TOPICAL DAILY PRN (Reason: Rash) gabapentin 300 mg capsule 300 mg PO TID hydrocortisone 2.5 % cream See Rx Instructions .ROUTE .COMPLEX Rx Instructions: MIX WITH EQUAL PARTS WITH KETOCONAZOLE CREAM AND APPLY RASH ON FACE, SCALP AND EARS TWICE DAILY WHEN RASH IS PRESENT ketoconazole 2 % cream See Rx Instructions .ROUTE .COMPLEX Rx Instructions: MIX WITH EQUAL PARTS WITH HYDROCORTISONE AND APPLY TO RASH ON FACE, SCALP AND EARS TWICE DAILY NEEDED testosterone 1.62 % (40.5 mg/2.5 gram) gel in packet 1 packet topical DAILY vancomycin 125 mg Capsule 125 mg PO QID Qty: 40 0RF Discharge Orders: Discharge ED (Routine); Ordered 10/06/24 Ordered By: Daria Junior Referrals: Al Álvarez MD [Primary Care Provider] - Patient Instructions: C. Diff (Clostridioides Difficile) Infection (ED), Opioid Safety, Pain Management Activity Restrictions/Additional Instructions: Thank you for choosing [facility] for your healthcare needs today. Please realize this is an emergency room and that we are providing you with a medical screening exam and this may not be complete and all inclusive of all the testing and or work up that you may need to determine your ailment or severity of your illness. You have been screened and evaluated and felt safe for discharge. Health conditions do change or evolve sometimes and as such it is important that you follow up with your Primary Doctor to be re checked, 3-5 days is a general good time frame for follow up. You are always welcome to return to the ED for re assessment if your symptoms are worsening or you have new concerns Coding Level of Care Code ED [employer] [facility]
[2024-10-05 22:45] LABS: Basophils # 0.1 10^3/uL (0.0-0.1); Basophils % 0.9 %; Eosinophils # 0.2 10^3/uL (0.0-0.8); Eosinophils % 4.3 %; Hematocrit 50.3 % (37-53); Lymphocytes # 1.2 10^3/uL (0.8-4.8); Lymphocytes % 21.9 %; Mean Corpuscular HGB Conc 32.6 g/dL (30-55); Mean Corpuscular Hemoglobin 32.5 pg (27-33); Mean Corpuscular Volume 99.8 fl (82-101); Mean Platelet Volume 9.1 fL (7.4-10.4); Monocytes # 0.3 10^3/uL (0.2-0.9); Monocytes % 5.9 %; Neutrophils % 66.5 %; Nucleated Red Blood Cells % 0 %; Platelet Count 221 10^3/cmm (157-399); Red Blood Count 5.04 10^6/uL (3.85-5.65); Red Cell Distribution Width 15.1 % (12.1-15.1); White Blood Count 5.57 10^3/uL (3.29-11.43)
[2024-10-05 23:05] LABS: Alanine Aminotransferase 17 U/L (0-41); Albumin Level 4.4 g/dL (3.5-5.2); Alkaline Phosphatase 67 U/L (40-130); Aspartate Amino Transferase 19 U/L (0-40); Blood Urea Nitrogen 16 mg/dL (8-23); C Reactive Protein 22.6 mg/L (0.0-4.9); Calcium 10.1 mg/dL (8.5-10.5); Carbon Dioxide 27 mmol/L (22-29); Chloride 96 mmol/L (98-107); Creatinine Clr Calc Pharmacy 77.5991; Globulin 3.3 g/dL (1.3-4.6); Glomerular Filtration Rate 54.7 mL/min (90-130); Glucose 180 mg/dL (65-115); Lipase 53 U/L (13-60); Osmolality Calculated 290 mOsm/kg (285-295); Sodium 137 mmol/L (136-145); Total Bilirubin 0.5 mg/dL (0.15-1.2); Total Protein 7.7 g/dL (6.6-8.7)
[2024-10-05 23:06] LABS: Lactic Sepsis W/Reflex 3.8 mmol/L (0.5-2.2)
[2024-10-05] MEDS: ondansetron 2 mg/ML SDV 2 mL 8 MG IVP (23:11)
[2024-10-05 23:39] VITALS: BP 104/54; PULSE 102; RESP 18; O2SAT 92
[2024-10-05 23:47] LABS: Bilirubin Urine Negative (Negative); Blood Urine Negative (Negative); Glucose Urine UA Negative (Normal); Ketones Urine Negative (Negative); Leukocyte Esterase Urine Negative (Negative); Nitrate Urine Negative (Negative); Protein Urine 2+ (Negative); Specific Gravity, Urine 1.023 (1.005-1.030); Urine Appearance Clear (CLEAR); Urine Color Yellow (Yellow)
[2024-10-05 23:55] VITALS: BP 104/54; PULSE 104; RESP 18; O2SAT 93
[2024-10-06 00:06] LABS: C.Diff PCR (Lab) POSITIVE (Negative)
[2024-10-06 00:10] LABS: Bacteria Urine None Seen /hpf; Hyaline Casts Urine 15.28 /lpf; RBC Urine 0-2 /hpf (0-2); Squamous Epithelial Cell Urine 0-5 /hpf (0-5); WBC Urine 0-5 /hpf (0-5)
[2024-10-06 00:12] LABS: UA Slide Review UA Slide Review Perf
[2024-10-06 00:31] LABS: Reflex Lactate Order REFLEX LACTIC ORDERD
[2024-10-06] MEDS: sodium chloride 0.9% 1,000 ML 999 ML IV (00:53)
[2024-10-06] MEDS: ondansetron 2 mg/ML SDV 2 mL 8 MG IVP (00:53)
[2024-10-06] MEDS: vancomycin 125 mg Capsule PO ×2 (00:53)
[2024-10-06 01:19] VITALS: BP 156/106; PULSE 109; RESP 16; O2SAT 91
== END 2024-10-06 01:38 | disposition home or self-care (01) ==
PROVIDERS: Emergency Provider Emergency Medicine; PCP Family Medicine
DX: A04.72 Enterocolitis due to Clostridium difficile, not specified as recurrent (principal); E86.0 Dehydration; R11.10 Vomiting, unspecified
CPT/HCPCS: 36415; 74022; 80053; 81001; 83605; 83690; 85025; 86140; 87040; 87493; 96361; 96374; 96375; 96376; 99284; J1642; J2405; J7030

== ENCOUNTER 2024-10-08 14:13 | Emergency (ER) | payer MEDICARE, SELFPAY ==
[2024-10-08 14:23] VITALS: BP 211/154; PULSE 84; RESP 17; TEMP 36.3; O2SAT 93; BMI 35.9
--- NOTE | 2024-10-08 14:26 | CT_ITS ---
WS: [id number] CT ABDOMEN AND PELVIS NONCONTRAST HISTORY: Abdominal pain TECHNIQUE: Imaging performed through the abdomen and pelvis. Coronal and sagittal reformats are submi tted. All CT scans at [facility] use at least one of these dose optimization techniques: auto mated exposure control; mA and/or kV adjustment per patient size (includes targeted exams where dose is matched to clinical indication); or iterative reconstruction. DLP: 1210.83 mGy.cm COMPARISON: 07/07/2024, 02/10/2024 Lower thorax: Lung bases are clear. Visualized heart is normal. No hiatal hernia. Liver: Diffuse hepatic steatosis. Reidentified mixed attenuation in the inferior RIGHT lobe of the li barb from the known metastatic site. The largest site is 5.0 x 6.2 cm. This study is not adequate to e xclude progression of metastatic liver disease. Gallbladder: Normal gallbladder. No pericholecystic fluid or cholelithiasis. No gallbladder wall thic kening. Pancreas: Normal size and attenuation. Normal pancreatic duct. No pancreatitis or mass. Spleen: Normal. Adrenal glands: Normal. No mass. Right kidney: Abnormal configuration of the kidney. Abnormal configuration is noted to be due to a ch ronic subdural hematoma. There is no obstruction. Left kidney: Cortical thinning and cysts. No obstruction. Aorta: Mild atherosclerosis abdominal aorta with no aneurysm. No free fluid, intraperitoneal air or significant lymphadenopathy. GI tract: RIGHT lower quadrant colostomy. Subtotal colectomy. No recurrent mass at the resection site at the rectosigmoid junction. No small bowel obstruction. No colitis. No wall thickening or inflamma tion. Abdominal wall: RIGHT lower quadrant colostomy. Fat-containing LEFT inguinal hernia. Pelvis: Mild distention of the bladder. No free fluid. Osseous structures: Degenerative scoliosis. Extensive hardware throughout the visualized thoracic and lumbar spines. CT/CT abdomen pelvis wo con [id number] IMPRESSION: 1. No evidence for colitis. There is no wall thickening or edema. 2. RIGHT lower quadrant colostomy. 3. Subtotal colectomy with Lindsey's pouch. No recurrent mass. 4. Long-term stability RIGHT subcapsular hematoma. 5. Variable attenuation in the RIGHT lobe of the liver. Patient has known meta static liver disease. Noncontrast exam is not adequate to diagnose for progress ion of disease.
--- NOTE | 2024-10-08 14:32 | PC.NURSE ---
THIS NURSE WAS TRIAGING PT AND HAD A BLOOD PRESSURE READING OF 211/154. THIS NURSE RETOOK BLOOD PRESSURE ON OTHER ARM AND RECIEVED THE SAME READING. PT WAS BROUGHT BACK TO ROOM. PT STOOD UP AND TRANSFERRED TO BED. BLOOD PRESSURE WAS TAKEN AGAIN AND IT WAS 108/69. PHYSICIAN NOTIFIED.
[2024-10-08 14:33] VITALS: BP 108/69
--- NOTE | 2024-10-08 14:43 | ED_ITS ---
HPI - Nausea/Vomiting/Diarrhea 2 General: Chief complaint: Nausea/Vomiting/Diarrhea Stated complaint: n,v tested postive Cdiff 2 days ago Time Seen by Provider: 10/08/24 14:25 History of Present Illness: 69-year-old male presents to the emergen cy room complaining of nausea and vomiting. He previously had a colon resection and has a colostomy because of colon cancer. He is able to drink but he has not been able to eat he has been feeling very weak. Denies any hematemesis coffee-ground emesis no bloody output in colostomy bag. Patient tested positive for C. difficile 2 days ago in the emergency room was started on vancomycin stable can a couple doses but he has worsening nausea and vomiting with it. No fever sweats or chills. Patient is currently being treated for colon cancer metastatic to the liver. He is seen in [place] he is scheduled for chemo next week. He was hospitalized in June for C. difficile as well. Associated nausea: Yes Associated symtoms: Reports nausea; Denies chest pain or dysuria Related Data Home Medications Medication Instructions Recorded Confirmed allopurinol 300 mg tablet 300 mg PO DAILY 10/15/19 10/08/24 multivitamin 1 tab PO DAILY@2200 10/15/19 10/08/24 sennosides 8.6 mg tablet (senna) 8.6 mg PO DAILY PRN Constipation 10/27/19 10/08/24 lycopene 10 mg capsule 10 mg PO DAILY 11/15/20 10/08/24 resveratrol 250 mg capsule 250 mg PO QPM 11/15/20 10/08/24 saw palmetto 500 mg capsule 500 mg PO DAILY 11/15/20 10/08/24 loratadine 10 mg tablet (Claritin) 10 mg PO DAILY PRN ALLERGIES 11/21/21 10/08/24 ketoconazole 2 % shampoo 1 applic topical DAILY PRN Rash 07/18/22 10/08/24 acetaminophen 500 mg tablet 500 mg PO Q6H PRN Pain 10/09/22 10/08/24 cholecalciferol (vitamin D3) 10 10 mcg PO DAILY 10/09/22 10/08/24 mcg (400 unit) capsule (Vitamin D3) melatonin 5 mg tablet 10 mg PO BEDTIME 10/09/22 10/08/24 trazodone 150 mg tablet 300 mg PO BEDTIME 10/09/22 10/08/24 gabapentin 300 mg capsule 300 mg PO TID 02/04/23 10/08/24 lovastatin 40 mg tablet 40 mg PO BEDTIME 02/05/23 10/08/24 hydrocortisone 2.5 % topical cream See Rx Instructions .Route .COMPLEX 02/11/24 10/08/24 ketoconazole 2 % topical cream See Rx Instructions .Route .COMPLEX 02/11/24 10/08/24 testosterone 1.62 % (40.5 mg/2.5 1 packet topical DAILY 02/11/24 10/08/24 gram) transdermal gel packet rivaroxaban 20 mg tablet (Xarelto) 20 mg PO DAILY 03/04/24 10/08/24 albuterol sulfate 90 mcg/actuation 2 puff inhalation Q4H PRN 10/08/24 10/08/24 aerosol inhaler Shortness Of Breath clindamycin phosphate 1 % lotion 1 applic topical BID PRN Skin 10/08/24 10/08/24 Irritation digoxin 125 mcg (0.125 mg) tablet 0.125 mg PO DAILY 10/08/24 10/08/24 epinephrine 0.3 mg/0.3 mL See Rx Instructions .Route .COMPLEX 10/08/24 10/08/24 injection, auto-injector furosemide 20 mg tablet 20 mg PO DAILY 10/08/24 10/08/24 ondansetron 8 mg disintegrating 8 mg PO Q6H PRN Nausea And Vomiting 10/08/24 10/08/24 tablet oxycodone 10 mg tablet 10 mg PO Q6H PRN Pain 10/08/24 10/08/24 prochlorperazine maleate 10 mg 10 mg PO QID PRN Nausea 10/08/24 10/08/24 tablet Previous Rx's Medication Instructions Recorded metoprolol tartrate 25 mg tablet 25 mg PO Q12H 30 days #180 tabs 10/24/23 fidaxomicin 200 mg tablet (Dificid) 200 mg PO BID 10 days #20 tabs 10/08/24 promethazine 25 mg tablet 25 mg PO Q6H PRN nausea and 10/08/24 vomiting #20 tabs Allergies Allergy/AdvReac Type Severity Reaction Status Date / Time blackberry Allergy Unknown ADR-Diarrhe Verified 10/05/24 22:06 a blueberry Allergy Unknown ADR-Diarrhe Verified 10/05/24 22:06 a raspberry Allergy Unknown ADR-Diarrhe Verified 10/05/24 22:06 a strawberry Allergy Unknown ADR-Diarrhe Verified 10/05/24 22:06 a tomato Allergy Unknown ADR-Gastrointestinal Verified 10/05/24 22:06 Upset oats Allergy DIARRHEA Verified 10/05/24 22:06 Opioids - Morphine Analogues Allergy ADR-Chest Verified 10/05/24 22:06 Pain caffeine AdvReac Unknown PALPITATION Verified 10/05/24 22:06 S apple AdvReac DIARRHEA, Verified 10/05/24 22:06 VOMITING AND CRAMPING meperidine [From Demerol] AdvReac EXCESSIVE Verified 10/05/24 22:06 SEDATION morphine AdvReac HALLUCINATI Verified 10/05/24 22:06 ONS Review of Systems 2 Const: Denies: fever(s) or chills Card: Denies: chest pain Resp: Denies: dyspnea GI: Reports: nausea and vomiting; Denies: abdominal pain : Denies: dysuria, urinary frequency or urinary urgency Musc: Denies: neck pain or back pain Skin/Breast: Denies: rash PFSH ED 2 PFSH: Medical History Orthostatic hypotension Cardiomegaly Afib Hypertension Acute respiratory failure with hypoxia and hypercapnia Tubular adenoma of colon Prolonged bleeding time Metastases to the liver Elevated CEA Liver mass Goiter Colon cancer screening Liver lesion Polycythemia Low testosterone in male Ileus Colon cancer Osteoarthritis 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 (~08/2022) hospitalized in [place] Chronic sinusitis of both maxillary sinuses Gout Asperger syndrome mild Dyslipidemia Degenerative joint disease (DJD) of lumbar spine Obstructive sleep apnea Chronic low back pain Substernal goiter Asthma Restrictive lung disease due to kyphoscoliosis Suspected exposure to asbestos Allergies Right renal stone Testosterone deficiency On TRT for 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 Erectile dysfunction Opioid contract exists previous Chronic pain syndrome Surgical History Hx of bilateral cataract extraction History of colostomy (11/01/22) Colostomy revision for control of bleeding History of exploratory laparotomy (10/15/22) Exploratory laparotomy with partial colon resection and with end colostomy formation Status post left hemicolectomy (10/08/22) laparoscopic converted to open, with splenic flexure takedown and right colon mobilization, primary anastamosis History of back surgery History of shoulder surgery History of appendectomy H/O arthroscopic knee surgery H/O ankle fusion H/O wrist surgery S/P ureteral stent placement Family History Grandfather CAD (coronary artery disease) Family/Other Cancer Grandmother Dementia Stroke Mother Lung disease Other Hypertension Denies family history of Rheumatoid arthritis Diabetes Lupus Clotting disorder Hyperlipidemia Chronic kidney disease (CKD) Suicide Anesthesia complication Bleeding disorder Social History Smoking and tobacco/nicotine status: never used tobacco/nicotine Quit status (tobacco/nicotine): has quit using Year quit tobacco: 1975 [id number] Second hand smoke exposure: Yes Alcohol intake: never Substance/Drug Use: never Lives independently: Yes Current occupational status: retired Pets and animals: Yes Do you think of yourself as: Straight/Heterosexual Current gender identity: Male Physical Exam 2 Const: GENERAL APPEARANCE: cooperative ORIENTATION/CONSCIOUSNESS: Yes awake, Yes oriented to person, Yes oriented to place and Yes oriented to time HENMT: COMMON NORMALS: normocephalic, atraumatic and hearing grossly normal bilaterally HEAD & SCALP: normocephalic and atraumatic Resp: COMMON NORMALS: normal respiratory effort, No retractions, No use of accessory muscles and clear to auscultation bilaterally AUSCULTATION: clear to auscultation bilaterally Cardio: COMMON NORMALS: regular rate, regular rhythm and No murmurs present (Cardio) RATE: regular rate RHYTHM: regular rhythm GI: COMMON NORMALS: No hepatosplenomegaly present AUSCULTATION: Yes normoactive bowel sounds PALPATION: Yes Tenderness to palpation present (GI), No Guarding due to palpation present (GI) and Yes No hepatosplenomegaly present OTHER: Ostomy in the right lower quadrant Extremity: COMMON NORMALS: normal to inspection, capillary refill normal, no clubbing, cyanosis or edema, no calf tenderness and no pedal edema Neuro: SENSORIUM/ORIENTATION: Yes oriented to person, Yes oriented to place and Yes oriented to time Skin: COMMON NORMALS: no rashes or lesions noted GENERAL SKIN EXAM: no rashes or lesions noted Course 2 Vital Signs: Vital signs: Vital Signs Temperature 97.4 F L 10/08/24 14:23 Pulse Rate 98 10/08/24 18:12 Respiratory Rate 18 10/08/24 17:07 Blood Pressure 123/73 10/08/24 18:12 Pulse Oximetry 98 10/08/24 18:12 Oxygen Delivery Me thod Room Air 10/08/24 17:40 MDM - Nausea/Vomiting/Diarrhea Medical Decision Making Patient given 1500 mL of fluid. He has not had any vomiting since arriving here. Will discharge him home gave promethazine to use as needed. Will switch him from vancomycin to Dificid. I did do a dig level is concerned that with his slight worsening of his creatinine that he may be dig toxic causing his nausea vomiting however his dig level is actually low. CT of the abdomen does not show significant colitis wall thickening or edema of the colon. Discharge patient home clear liquid diet advance as tolerated change the Dificid horcu promethazine for nausea and vomiting. Encouraged him to contact his oncology team regarding his recent diagnosis of C. difficile. Additionally he will need a repeat BMP in 1 to 2 days. Medical Records I reviewed the patient's medical records. Lab Data I reviewed the patient's lab results. 10/08/24 14:47 10/08/24 14:47 Radiology Impressions Abdomen/Pelvis CT 10/08/24 14:26 IMPRESSION: 1. No evidence for colitis. There is no wall thickening or edema. 2. RIGHT lower quadrant colostomy. 3. Subtotal colectomy with Lindsey's pouch. No recurrent mass. 4. Long-term stability RIGHT subcapsular hematoma. 5. Variable attenuation in the RIGHT lobe of the liver. Patient has known metastatic liver disease. Noncontrast exam is not adequate to diagnose for progression of disease. Laboratory Results WBC 8.80 10^3/uL (3.29-11.43) 10/08/24 14:47 RBC 5.14 10^6/uL (3.85-5.65) 10/08/24 14:47 Hgb 16.70 g/dL (11.27-16.99) 10/08/24 14:47 Hct 49.9 % (37-53) 10/08/24 14:47 MCV 97.1 fl (82-101) 10/08/24 14:47 MCH 32.5 pg (27-33) 10/08/24 14:47 MCHC 33.5 g/dL (30-55) 10/08/24 14:47 RDW 15.6 % (12.1-15.1) H 10/08/24 14:47 Plt Count 260 10^3/cmm (157-399) 10/08/24 14:47 MPV 9.8 fL (7.4-10.4) 10/08/24 14:47 Neut % (Auto) 61.9 % 10/08/24 14:47 Lymph % (Auto) 23.1 % 10/08/24 14:47 Hudspeth % (Auto) 10.1 % 10/08/24 14:47 Eos % (Auto) 3.9 % 10/08/24 14:47 Baso % (Auto) 0.7 % 10/08/24 14:47 Neut # (Auto) 5.45 10^3/uL (1.8-7.7) 10/08/24 14:47 Lymph # (Auto) 2.0 10^3/uL (0.8-4.8) 10/08/24 14:47 Hudspeth # (Auto) 0.9 10^3/uL (0.2-0.9) 10/08/24 14:47 Eos # (Auto) 0.3 10^3/uL (0.0-0.8) 10/08/24 14:47 Baso # (Auto) 0.1 10^3/uL (0.0-0.1) 10/08/24 14:47 Nucleated RBC % (auto) 0.3 % 10/08/24 14:47 Nucleated RBCs # 0.0 /100WBC 10/08/24 14:47 Sodium 131 mmol/L (136-145) L 10/08/24 14:47 Potassium 4.0 mmol/L (3.5-5.1) 10/08/24 14:47 Chloride 85 mmol/L (98-107) L 10/08/24 14:47 Carbon Dioxide 27 mmol/L (22-29) 10/08/24 14:47 Anion Gap 23.0 (5-19) H 10/08/24 14:47 BUN 44 mg/dL (8-23) H 10/08/24 14:47 Creatinine 2.0 mg/dL (0.7-1.2) H 10/08/24 14:47 GFR Calculation 33.3 mL/min (90-130) L 10/08/24 14:47 Glucose 177 mg/dL (65-115) H 10/08/24 14:47 Calculated Osmolality 288 mOsm/kg (285-295) 10/08/24 14:47 Calcium 10.1 mg/dL (8.5-10.5) 10/08/24 14:47 Magnesium 2.1 mg/dL (1.7-2.3) 10/08/24 14:47 Total Bilirubin 0.8 mg/dL (0.15-1.2) 10/08/24 14:47 AST 17 U/L (0-40) 10/08/24 14:47 ALT 11 U/L (0-41) 10/08/24 14:47 Alkaline Phosphatase 68 U/L (40-130) 10/08/24 14:47 Total Protein 7.9 g/dL (6.6-8.7) 10/08/24 14:47 Albumin 4.2 g/dL (3.5-5.2) 10/08/24 14:47 Globulin 3.7 g/dL (1.3-4.6) 10/08/24 14:47 Urine Color Yellow (Yellow) 10/08/24 15:20 Urine Appearance Clear (CLEAR) 10/08/24 15:20 Urine pH 5.0 (5-7) 10/08/24 15:20 Ur Specific [place] 1.023 (1.005-1.030) 10/08/24 15:20 Urine Protein 1+ (Negative) A 10/08/24 15:20 Urine Glucose (UA) Negative (Normal) 10/08/24 15:20 Urine Ketones Trace (Negative) 10/08/24 15:20 Urine Blood 2+ (Negative) A 10/08/24 15:20 Urine Nitrate Negative (Negative) 10/08/24 15:20 Urine Bilirubin Negative (Negative) 10/08/24 15:20 Urine Urobilinogen 0.2 mg/dL (Negative) 10/08/24 15:20 Ur Leukocyte Esterase Negative (Negative) 10/08/24 15:20 Urine RBC 6-10 /hpf (0-2) 10/08/24 15:20 Urine WBC 0-5 /hpf (0-5) 10/08/24 15:20 Ur Squamous Epith Cells 0-5 /hpf (0-5) 10/08/24 15:20 Urine Bacteria None seen /hpf (NONE) 10/08/24 15:20 Hyaline Casts 20.67 /lpf 10/08/24 15:20 Digoxin 0.3 ng/mL (0.6-1.2) L 10/08/24 14:47 All radiology interpretation(s) finalized by discharge Discharge Plan Discharge Patient Disposition: Home Clinical Impression: Clostridium difficile colitis, Vomiting, Atrial fibrillation, Acute kidney injury Condition: Stable Prescriptions: New Dificid 200 mg tablet 200 mg PO BID 10 Days Qty: 20 0RF promethazine 25 mg tablet 25 mg PO Q6H PRN (Reason: nausea and vomiting) Qty: 20 0RF Discontinued vancomycin 25 mg/mL recon soln 125 mg PO Q6H 10 Days Qty: 200 0RF No Action allopurinol 300 mg tablet 300 mg PO DAILY multivitamin Tablet 1 tab PO DAILY@2200 lycopene 10 mg capsule 10 mg PO DAILY resveratrol 250 mg capsule 250 mg PO QPM saw palmetto 500 mg capsule 500 mg PO DAILY lovastatin 40 mg tablet 40 mg PO BEDTIME metoprolol tartrate 25 mg tablet 25 mg PO Q12H 30 Days Qty: 180 3RF Xarelto 20 mg tablet 20 mg PO DAILY sennosides [senna] 8.6 mg Tablet 8.6 mg PO DAILY PRN (Reason: Constipation) loratadine [Claritin] 10 mg tablet 10 mg PO DAILY PRN (Reason: ALLERGIES) acetaminophen 500 mg Tablet 500 mg PO Q6H PRN (Reason: Pain) trazodone 150 mg tablet 300 mg PO BEDTIME cholecalciferol (vitamin D3) [Vitamin D3] 10 mcg (400 unit) Capsule 10 mcg PO DAILY melatonin 5 mg Tablet 10 mg PO BEDTIME ketoconazole 2 % shampoo 1 applic TOPICAL DAILY PRN (Reason: Rash) gabapentin 300 mg capsule 300 mg PO TID hydrocortisone 2.5 % cream See Rx Instructions .ROUTE .COMPLEX Rx Instructions: MIX WITH EQUAL PARTS WITH KETOCONAZOLE CREAM AND APPLY RASH ON FACE, SCALP AND EARS TWICE DAILY WHEN RASH IS PRESENT ketoconazole 2 % cream See Rx Instructions .ROUTE .COMPLEX Rx Instructions: MIX WITH EQUAL PARTS WITH HYDROCORTISONE AND APPLY TO RASH ON FACE, SCALP AND EARS TWICE DAILY NEEDED testosterone 1.62 % (40.5 mg/2.5 gram) gel in packet 1 packet topical DAILY ondansetron 8 mg tablet,disintegrating 8 mg PO Q6H PRN (Reason: Nausea And Vomiting) Rx Instructions: Take 1/2-1 tab every 6 hours as needed for nausea and vomiting digoxin 125 mcg (0.125 mg) tablet 0.125 mg PO DAILY prochlorperazine maleate 10 mg tablet 10 mg PO QID PRN (Reason: Nausea) furosemide 20 mg tablet 20 mg PO DAILY epinephrine 0.3 mg/0.3 mL auto-injector See Rx Instructions .ROUTE .COMPLEX Rx Instructions: INJECT CONTENTS OF 1 PEN NEEDED FOR ALLERGIC REACTION albuterol sulfate 90 mcg/actuation HFA aerosol inhaler 2 puff INHALATION Q4H PRN (Reason: Shortness Of Breath) clindamycin phosphate 1 % lotion 1 applic TOPICAL BID PRN (Reason: Skin Irritation) oxycodone 10 mg tablet 10 mg PO Q6H PRN (Reason: Pain) Discharge Orders: Discharge ED (Routine); Ordered 10/08/24 Ordered By: Jatinder Yeboah Referrals: Al Álvarez MD [Primary Care Provider] - Discharge Diet: Clear Liquid Discharge Activity: Increase activity as tolerated Patient Instructions: Opioid Safety, Pain Management Activity Restrictions/Additional Instructions: Thank you for choosing [facility] for your healthcare needs today. It is very important that you follow up as instructed or that you return to the Emergency Department should you have concerns or if your condition changes or worsens in any way. You are seen in the emergency room with complaints of nausea and vomiting. The CT of your abdomen did not show any significant dilation of the bowel or thickening of the bowel wall. Some of the symptoms may be caused by the C. difficile itself but it may also be exacerbated or caused by the oral antibiotics. You had a mild kidney injury. You were given IV fluids. We did not your heart rate was going up with your atrial fibrillation and you were given your evening dose of metoprolol while you are in the emergency room. We recommend that you stop the vancomycin and changed to Dificid 200 mg twice a day for 10 days. You can continue to use the ondansetron but we also gave you a prescription for promethazine to use as needed. Would recommend that you contact your oncology team in [place] and advised him that you are being treated for C. difficile. Finally your digoxin level was slightly low despite your kidney function being elevated. You should follow-up on both the digoxin level and your kidney function with your primary care doctor early next week. Coding Level of Care Code ED Medical Charge Entry Specialist for Scarlett San
[2024-10-08 14:58] LABS: Basophils # 0.1 10^3/uL (0.0-0.1); Basophils % 0.7 %; Eosinophils # 0.3 10^3/uL (0.0-0.8); Eosinophils % 3.9 %; Hematocrit 49.9 % (37-53); Lymphocytes % 23.1 %; Mean Corpuscular HGB Conc 33.5 g/dL (30-55); Mean Corpuscular Hemoglobin 32.5 pg (27-33); Mean Corpuscular Volume 97.1 fl (82-101); Mean Platelet Volume 9.8 fL (7.4-10.4); Monocytes # 0.9 10^3/uL (0.2-0.9); Monocytes % 10.1 %; Neutrophils # 5.45 10^3/uL (1.8-7.7); Neutrophils % 61.9 %; Nucleated Red Blood Cells % 0.3 %; Platelet Count 260 10^3/cmm (157-399); Red Blood Count 5.14 10^6/uL (3.85-5.65); Red Cell Distribution Width 15.6 % (12.1-15.1)
[2024-10-08 15:14] LABS: Alanine Aminotransferase 11 U/L (0-41); Albumin Level 4.2 g/dL (3.5-5.2); Alkaline Phosphatase 68 U/L (40-130); Aspartate Amino Transferase 17 U/L (0-40); Blood Urea Nitrogen 44 mg/dL (8-23); Calcium 10.1 mg/dL (8.5-10.5); Carbon Dioxide 27 mmol/L (22-29); Chloride 85 mmol/L (98-107); Creatinine Clr Calc Pharmacy 52.0686; Globulin 3.7 g/dL (1.3-4.6); Glomerular Filtration Rate 33.3 mL/min (90-130); Glucose 177 mg/dL (65-115); Magnesium 2.1 mg/dL (1.7-2.3); Osmolality Calculated 288 mOsm/kg (285-295); Sodium 131 mmol/L (136-145); Total Bilirubin 0.8 mg/dL (0.15-1.2); Total Protein 7.9 g/dL (6.6-8.7)
[2024-10-08] MEDS: sodium chloride 0.9% 500 ML 999 ML IV (15:38)
[2024-10-08 15:39] VITALS: BP 130/69; PULSE 99; RESP 18; O2SAT 90
[2024-10-08 15:52] LABS: Bilirubin Urine Negative (Negative); Blood Urine 2+ (Negative); Glucose Urine UA Negative (Normal); Ketones Urine Trace (Negative); Leukocyte Esterase Urine Negative (Negative); Nitrate Urine Negative (Negative); Protein Urine 1+ (Negative); Specific Gravity, Urine 1.023 (1.005-1.030); Urine Appearance Clear (CLEAR); Urine Color Yellow (Yellow); Urobilinogen Urine 0.2 mg/dL (Negative)
[2024-10-08 15:59] LABS: Add Urine Microscopic? YES; Bacteria Urine None Seen /hpf; Hyaline Casts Urine 20.67 /lpf; Squamous Epithelial Cell Urine 0-5 /hpf (0-5); WBC Urine 0-5 /hpf (0-5)
[2024-10-08 16:21] LABS: UA Slide Review UA Slide Review Perf
[2024-10-08 16:23] LABS: Add Urine Culture? No
[2024-10-08] MEDS: sodium chloride 0.9% 1,000 ML 999 ML IV (16:36)
[2024-10-08] MEDS: prochlorperazine 10 mg/2 mL Inj IVP (16:36)
--- NOTE | 2024-10-08 17:01 | ECG_ITS ---
[facility] Test Date: 2024-10-08 Pat Name: Charan Voss Department: Room: Gender: Male Dry End Operator: : 1955 Requested By: Jatinder Finley Order Number: [id number] Hilary MD: Raiza Orourke M.D. Measurements Intervals [place] Rate: 107 P: 0 AK: 0 QRS: -9 QRSD: 123 T: 74 QT: 348 QTc: 465 Interpretive Statements ATRIAL FIBRILLATION WITH RAPID VENTRICULAR RESPONSE SEPTAL MYOCARDIAL INFARCTION , OF INDETERMINATE AGE [40+ ms Q WAVE IN V1/V2] Compared to ECG 07/07/2024 04:07:17 Left-axis deviation no longer present T-wave abnormality no longer present Possible ischemia no longer present Myocardial infarct finding still present Electronically Signed On 10-08-2024 18:19:00 DAIRY TESTER by Raiza Orourke M.D. [email or web address]
[2024-10-08 17:07] VITALS: BP 127/77; PULSE 111; RESP 18; O2SAT 92
[2024-10-08 17:29] LABS: Digoxin 0.3 ng/mL (0.6-1.2)
[2024-10-08 17:40] VITALS: BP 128/76; PULSE 101; O2SAT 94
[2024-10-08] MEDS: metoprolol tartrate 25 mg Tablet PO (17:40)
[2024-10-08 18:12] VITALS: BP 123/73; PULSE 98; O2SAT 98
== END 2024-10-08 18:13 | disposition home or self-care (01) ==
PROVIDERS: Emergency Provider Family Medicine; PCP Family Medicine
DX: A04.72 Enterocolitis due to Clostridium difficile, not specified as recurrent (principal); I48.91 Unspecified atrial fibrillation; N17.9 Acute kidney failure, unspecified; Z87.891 Personal history of nicotine dependence; E78.5 Hyperlipidemia, unspecified
CPT/HCPCS: 36415; 74176; 80053; 80162; 81001; 83735; 85025; 93005; 96361; 96374; 99285; J0780; J7030; J7040

== ENCOUNTER 2024-10-28 13:00 | Outpatient (CLI) | payer MEDICARE, SELFPAY ==
--- NOTE | 2024-10-28 13:12 | XR_ITS ---
WS: [id number] Exam: XR abdomen 1V* [id number] Date/Time of Exam: 10/28/2024 1:13 PM Reason For Exam: CALCULUS OF KIDNEY No bowel obstruction or pneumoperitoneum. No obvious abnormal calcifications noted in the region of t he kidneys. No sign of organ enlargement. Lumbosacral fusion with hardware. Marr rods in the th oracic and upper lumbar spine secondary to dextroscoliosis. Ostomy stoma seen over the RIGHT lower ab domen and pelvis. XR/XR abdomen 1V* [id number] IMPRESSION: 1. No acute process. No obvious abnormal calcifications in the region of the ki dneys.
== END 2024-10-28 13:01 | disposition home or self-care (01) ==
PROVIDERS: PCP Family Medicine; Visit Provider Urology
DX: N20.0 Calculus of kidney (principal); Z98.1 Arthrodesis status; Z98.890 Other specified postprocedural states
CPT/HCPCS: 74018

== ENCOUNTER → 2024-11-13 10:56 | Outpatient (BNVA) | payer MEDICARE, SELFPAY | PROVIDERS: PCP Family Medicine; Visit Provider Specialist | DX: M17.11 Unilateral primary osteoarthritis, right knee (principal); Z71.89 Other specified counseling | CPT/HCPCS: 20610; J1100; J2795; J3301 ==

== ENCOUNTER 2024-11-20 14:00 | Outpatient (CLI) | payer MEDICARE, SELFPAY ==
--- NOTE | 2024-11-20 14:07 | CTR_ITS ---
PROCEDURE INFORMATION: Exam: CT Chest With Contrast; Diagnostic Exam date and time: 11/20/2024 3:03 PM Age: 69 years old Clinical indication: Condition or disease; Other: Malignant neoplasm of colon; Prior surgery; Surgery date: 6+ months; Surgery type: Colostomy, johnson rods, appy TECHNIQUE: Imaging protocol: Diagnostic computed tomography of the chest with contrast. Sagittal and coronal reformatted images were also reviewed. Radiation optimization: All CT scans at this facility use at least one of these dose optimization techniques: automated exposure control; mA and/or kV adjustment per patient size (includes targeted exams where dose is matched to clinical indication); or iterative reconstruction. Contrast material: OMNI 350; Contrast volume: 100 ml; Contrast route: INTRAVENOUS (IV); COMPARISON: PT PET skull to thigh SUBS [id number] 03/17/2024 10:45 AM RADIATION DOSE METRICS: Total DLP (mGy-cm): 1719.19 FINDINGS: Thyroid: Stable 4.2 x 3.0 cm low-density nodule with areas of punctate calcification in the left thyroid lobe (series 3, image 10). Trachea: Tracheobronchial structures are patent. Lungs: Lungs are clear bilaterally. No pulmonary parenchymal nodules or masses. Stable linear scarring in the left lower lobe. Pleural spaces: No pneumothorax. No pleural effusion. Heart: Stable mild enlargement of the heart. Coronary arteries: Stable mild atherosclerotic calcification in the coronary arteries. Esophagus: The esophagus is unremarkable. Mediastinal space: No mediastinal hematoma. No pneumomediastinum. Lymph nodes: No lymphadenopathy. Stable partially calcified mediastinal and calcified right hilar lymph nodes. Vasculature: Stable mild atherosclerotic changes in the visualized arteries. No evidence for aortic aneurysm or aortic dissection. Pulmonary arteries are unremarkable. Pulmonary veins are unremarkable. Bones/joints: Bones are diffusely osteopenic. Degenerative changes in the spine and shoulders. Stable partial resection of the left 8th rib. Stable fusion from T3 through L1. No evidence for loosening of the surgical hardware. Calcification of the anterior longitudinal ligament at multiple levels in the thoracic spine, possibly representing diffuse idiopathic skeletal hyperostosis (DISH). Mild scoliosis in the thoracic spine. Osseous findings are stable. No lytic or sclerotic bony lesions. Soft tissues: No acute abnormality in the extrathoracic soft tissues. PROCEDURE INFORMATION: Exam: CT Abdomen And Pelvis With Contrast Exam date and time: 11/20/2024 3:03 PM Age: 69 years old Clinical indication: Condition or disease; Other: Malignant neoplasm of colon; Prior surgery; Surgery date: 6+ months; Surgery type: Colostomy, johnson rods, appy TECHNIQUE: Imaging protocol: Computed tomography of the abdomen and pelvis with contrast. The patient was administered oral contrast. Sagittal and coronal reformatted images were also reviewed. Radiation optimization: All CT scans at this facility use at least one of these dose optimization techniques: automated exposure control; mA and/or kV adjustment per patient size (includes targeted exams where dose is matched to clinical indication); or iterative reconstruction. Contrast material: OMNI 350; Contrast volume: 100 ml; Contrast route: INTRAVENOUS (IV); COMPARISON: 1. CT abdomen pelvis wo con [id number] 10/08/2024 2:[address] angio chest w abd pel w con 11/01/2022 1:55 PM RADIATION DOSE METRICS: Total DLP (mGy-cm): 1719.19 FINDINGS: Liver: Large mass in the lateral/inferior right lobe of the liver is stable in size measuring 10.2 x 9.1 x 6.4 cm (series 19, image 37 and series 7, image 37). Gallbladder and biliary ducts: The gallbladder is unremarkable. No biliary ductal dilatation. Pancreas: The pancreas is unremarkable. No pancreatic ductal dilatation. Spleen: The spleen is unremarkable. Adrenal glands: The right and left adrenal glands are unremarkable. Kidneys and ureters: Stable non-obstructing stone in the right kidney measuring 2.2 mm (series 7, image 50). Stable subcentimeter hypodense focus in the left kidney that is too small to characterize, however likely represents a small cyst. Two simple cysts in the left kidney are stable, the larger measures 4.4 cm. The right and left ureters are unremarkable. Stomach and bowel: Stable partial colectomy and right lower quadrant colostomy. No acute abnormality of the right colon/colostomy or the distal colonic stump. No acute abnormality in the stomach. No acute abnormality in the small bowel. Appendix: The appendix is visualized and is unremarkable. No evidence of appendicitis. Intraperitoneal space: No free intraperitoneal air. No ascites. No loculated fluid collections to suggest an abscess. Vasculature: Unremarkable as visualized. Lymph nodes: No lymphadenopathy. Urinary bladder: Stable diffuse, mild bladder wall thickening. Reproductive: Unremarkable as visualized. Bones/joints: There is a transitional vertebra at the lumbosacral junction. This is designated as S1. Mild scoliosis in the visualized spine. Degenerative changes in the spine, sacroiliac joints, and hips. Stable changes consistent with previous fusion in the visualized lower thoracic spine ending at L1. Stable fusion at L5-S1. No evidence for loosening of the surgical hardware. Grade I anterolisthesis of L5 on S1, likely due to facet degenerative change. A lucent focus in the posterior/left L2 vertebral body is stable in size and configuration dating back to 11/21/2022. Findings suggest a benign osseous focus such is a vertebral body hemangioma. No suspicious lytic or sclerotic bony lesions. Soft tissues: Stable sacral decubitus ulcer just to the left of midline. No acute abnormality in the extra-abdominal soft tissues. CT/CT chest abdpel w/*[id number] IMPRESSION: 1. No acute cardiopulmonary process. 2. No evidence for metastatic disease in the chest. 3. 4.2 x 3.0 cm low-density nodule with areas of punctate calcification in the left thyroid lobe is stable compared with 11/01/2022. Follow-up non-emergent thyroid ultrasound is recommended. 4. Incidental/nonacute findings are listed in the report. IMPRESSION: 1. No evidence for metastatic disease in the abdomen or pelvis. 2. Stable sacral decubitus ulcer just to the left of midline. 3. Stable non-obstructing right renal stone. 4. Stable diffuse, mild bladder wall thickening. In the correct clinical setting, this may suggest cystitis. Recommend correlation with laboratory findings. Alternatively, this may be secondary to chronic outlet obstruction. 5. Stable partial colectomy and right lower quadrant colostomy. No acute abnormality of the right colon/colostomy or the distal colonic stump. 6. A lucent focus in the posterior/left L2 vertebral body is stable in size and configuration dating back to 11/21/2022. Findings suggest a benign osseous focus such is a vertebral body hemangioma. 7. Incidental/nonacute findings are listed in the report.
[2024-11-20] MEDS: iohexol 350 mg/mL 500 mL Btl (per mL) PO (14:43)
[2024-11-20] MEDS: iohexol 350 mg/mL 500 mL Btl (per mL) IV (14:43)
[2024-11-20 15:10] LABS: Blood Urea Nitrogen 14 mg/dL (8-23); Glomerular Filtration Rate 74.1 mL/min (90-130)
== END 2024-11-20 14:01 | disposition home or self-care (01) ==
PROVIDERS: PCP Family Medicine; Visit Provider Internal Medicine
DX: C18.9 Malignant neoplasm of colon, unspecified (principal); Z98.890 Other specified postprocedural states; L89.90 Pressure ulcer of unspecified site, unspecified stage; N20.0 Calculus of kidney; R93.49 Abnormal radiologic findings on diagnostic imaging of other urinary organs; R93.7 Abnormal findings on diagnostic imaging of other parts of musculoskeletal system; R16.0 Hepatomegaly, not elsewhere classified; R93.422 Abnormal radiologic findings on diagnostic imaging of left kidney; N28.1 Cyst of kidney, acquired; M41.80 Other forms of scoliosis, site unspecified; M47.9 Spondylosis, unspecified; M46.1 Sacroiliitis, not elsewhere classified; M16.0 Bilateral primary osteoarthritis of hip; Z98.1 Arthrodesis status
CPT/HCPCS: 71260; 74177; 82565; 84520

== ENCOUNTER → 2024-11-25 14:43 | Outpatient (BNVA) | payer MEDICARE, SELFPAY | PROVIDERS: PCP Family Medicine; Visit Provider Specialist | DX: M17.12 Unilateral primary osteoarthritis, left knee (principal) | CPT/HCPCS: 20610; 73560; 73565; 99214; J1100; J2795; J3301 ==

== ENCOUNTER 2024-12-04 09:47 | Inpatient (IN) | payer MEDICARE, SELFPAY ==
[2024-12-04] VITALS (16 sets, daily range): BP systolic 102–154; BP diastolic 73–118; PULSE 86–137; RESP 12–25; TEMP 36.4–37.4; O2SAT 91–98; BMI 33.5
--- NOTE | 2024-12-04 10:01 | ECG_ITS ---
[email or web address] Waterfall Test Date: 2024-12-04 Pat Name: Charan Voss Department: Room: Gender: Male Hospital Laboratory Technician: : 1955 Requested By: Emi Callejas Order Number: [id number] Richard MD: Lance Feliz M.D. Measurements Intervals [place] Rate: 127 P: 0 CA: 0 QRS: -8 QRSD: 102 T: 107 QT: 288 QTc: 420 Interpretive Statements ATRIAL FIBRILLATION WITH RAPID VENTRICULAR RESPONSE POSSIBLE ANTERIOR MYOCARDIAL INFARCTION , OF INDETERMINATE AGE [30 ms Q WAVE IN V3/V4, OR R < 0.2 mV IN V4] MODERATE T-WAVE ABNORMALITY, CONSIDER LATERAL ISCHEMIA [-0.1+ mV T-WAVE IN I/aVL/V5/V6] Compared to ECG 10/08/2024 17:16:03 T-wave abnormality now present Possible ischemia now present Myocardial infarct finding still present Electronically Signed On 12-05-2024 18:02:39 MANAGER BUSINESS OPERATIONS by Lance Feliz M.D. [email or web address]
--- NOTE | 2024-12-04 10:06 | XR_ITS ---
WS: [id number] XR chest 1V portable [id number] REASON FOR EXAM: chest pain FINDINGS: The chest is unchanged compared to 07/07/2024. Chemotherapy infusion port of the left chest with trans right internal jugular vein infusion catheter with the tip in the distal SVC. Heart at the upper limits of normal in size. Calcified granulomatous disease bilaterally. No acute pulmonary parenchymal or pleural abnormality. Marr rods. 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 XR/XR chest 1V portable [id number] IMPRESSION: Stable chest with no acute abnormality.
--- NOTE | 2024-12-04 10:11 | PC.PHAR ---
patient stopped xarelto because of cancer treatment
--- NOTE | 2024-12-04 10:22 | W.ED.NAVMDI ---
Documented by User: JUAN Pierce 12/04/24 13:27 HPI - Nausea/Vomiting/Diarrhea General: Chief complaint: Nausea/Vomiting/Diarrhea Stated complaint: n/v Time Seen by Provider: 12/04/24 09:49 Source: patient and family Mode of arrival: wheelchair Limitations: no limitations History of Present Illness: Patient is a 69-year-old male with an extensive past medical history including colon cancer actively receiving chemotherapy here for concerns of C. difficile. Patient states he has had multiple previous episodes of C. difficile. He states he is chronically on prophylactic vancomycin. Patient states yesterday he began having nausea, vomiting, and foul-smelling ostomy output concerning him for a C. difficile infection of these were identical symptoms that he has had previously. He feels very weak. Overall stating he does not feel well. Patient has a history of atrial fibrillation. He reportedly takes digoxin for this. He is supposed to be taking anticoagulation but states he stopped this medication. He does arrive to the ED today in A-fib with RVR with a rate of 127. He is not complaining of chest pain, dyspnea, or lower extremity swelling/calf pain. Patient receives chemotherapy at [facility]. MD elicited complaint: nausea, vomiting and diarrhea Onset (ago): day(s) (yesterday) Description of vomiting: bilious Description of diarrhea: watery Associated nausea: Yes Location of pain: None Exacerbating factors: none Relieving factors: none Associated symtoms: Reports fatigue, malaise and nausea; Denies chest pain, dizziness, dysuria or headache(s) Related Data Home Medications ?Medication ?Instructions ?Recorded ?Confirmed allopurinol 300 mg tablet 300 mg PO DAILY 10/15/19 12/04/24 resveratrol 250 mg capsule 250 mg PO QPM 11/15/20 12/04/24 saw palmetto 500 mg capsule 500 mg PO DAILY 11/15/20 12/04/24 acetaminophen 500 mg tablet 500 mg PO Q6H PRN Pain 10/09/22 12/04/24 trazodone 150 mg tablet 300 mg PO BEDTIME 10/09/22 12/04/24 gabapentin 300 mg capsule 300 mg PO TID 02/04/23 12/04/24 lovastatin 40 mg tablet 40 mg PO BEDTIME 02/05/23 12/04/24 testosterone 1.62 % (40.5 mg/2.5 1 packet topical DAILY 02/11/24 12/04/24 gram) transdermal gel packet albuterol sulfate 90 mcg/actuation 2 puff inhalation Q4H PRN 10/08/24 12/04/24 aerosol inhaler Shortness Of Breath digoxin 125 mcg (0.125 mg) tablet 0.125 mg PO DAILY 10/08/24 12/04/24 epinephrine 0.3 mg/0.3 mL See Rx Instructions .Route .COMPLEX 10/08/24 12/04/24 injection, auto-injector furosemide 20 mg tablet 20 mg PO DAILY 10/08/24 12/04/24 oxycodone 10 mg tablet 10 mg PO Q6H PRN Pain 10/08/24 12/04/24 vancomycin 125 mg capsule 125 mg PO DAILY 12/04/24 12/04/24 Previous Rx's ?Medication ?Instructions ?Recorded metoprolol tartrate 25 mg tablet 25 mg PO Q12H 30 days #180 tabs 10/30/24 Allergies Allergy/AdvReac Type Severity Reaction Status Date / Time blackberry Allergy Unknown ADR-Diarrhe Verified 11/25/24 14:48 a blueberry Allergy Unknown ADR-Diarrhe Verified 11/25/24 14:48 a raspberry Allergy Unknown ADR-Diarrhe Verified 11/25/24 14:48 a strawberry Allergy Unknown ADR-Diarrhe Verified 11/25/24 14:48 a tomato Allergy Unknown ADR-Gastrointestinal Verified 11/25/24 14:48 Upset oats Allergy DIARRHEA Verified 11/25/24 14:48 Opioids - Morphine Analogues Allergy ADR-Chest Verified 11/25/24 14:48 Pain caffeine AdvReac Unknown PALPITATION Verified 11/25/24 14:48 S apple AdvReac DIARRHEA, Verified 11/25/24 14:48 VOMITING AND CRAMPING meperidine (From Demerol) AdvReac EXCESSIVE Verified 11/25/24 14:48 SEDATION morphine AdvReac HALLUCINATI Verified 11/25/24 14:48 ONS Review of Systems Const: Reports: fatigue and malaise; Denies: fever(s), chills or body aches Card: Reports: lightheadedness and pre-syncope; Denies: chest pain, edema or swelling of feet/ankles Resp: Denies: dyspnea GI: Reports: nausea and vomiting; Denies: abdominal pain or hematemesis : Denies: flank pain or dysuria Musc: Denies: neck pain, back pain, extremity pain, joint swelling or joint redness Skin/Breast: Denies: rash Neuro: Denies: headache(s) or dizziness 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 (~08/2022) hospitalized in [place] Chronic sinusitis of both maxillary sinuses Gout Asperger syndrome mild Dyslipidemia Degenerative joint disease (DJD) of lumbar spine Obstructive sleep apnea Chronic low back pain Substernal goiter Asthma Restrictive lung disease due to kyphoscoliosis Suspected exposure to asbestos Allergies Right renal stone Testosterone deficiency On TRT for 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 Erectile dysfunction Opioid contract exists previous Chronic pain syndrome Surgical History Hx of bilateral cataract extraction History of colostomy (11/01/22) Colostomy revision for control of bleeding History of exploratory laparotomy (10/15/22) Exploratory laparotomy with partial colon resection and with end colostomy formation Status post left hemicolectomy (10/08/22) laparoscopic converted to open, with splenic flexure takedown and right colon mobilization, primary anastamosis History of back surgery History of shoulder surgery History of appendectomy H/O arthroscopic knee surgery H/O ankle fusion H/O wrist surgery S/P ureteral stent placement Family History Grandfather CAD (coronary artery disease) Family/Other Cancer Grandmother Dementia Stroke Mother Lung disease Other Hypertension Denies family history of Rheumatoid arthritis Diabetes Lupus Clotting disorder Hyperlipidemia Chronic kidney disease (CKD) Suicide Anesthesia complication Bleeding disorder Social History Smoking and tobacco/nicotine status: never used tobacco/nicotine Quit status (tobacco/nicotine): has quit using Year quit tobacco: 1976 [id number] Second hand smoke exposure: Yes Alcohol intake: never Substance/Drug Use: never Lives independently: Yes Current occupational status: retired Pets and animals: Yes Do you think of yourself as: Straight/Heterosexual Current gender identity: Male Physical Exam Const: COMMON NORMALS: patient oriented x3, no limitations, alert and well nourished GENERAL APPEARANCE: cooperative and ill appearing ORIENTATION/CONSCIOUSNESS: Yes awake, Yes oriented to person, Yes oriented to place and Yes oriented to time HENMT: COMMON NORMALS: normocephalic and atraumatic HEAD & SCALP: normocephalic and atraumatic Neck/C-Spine: COMMON NORMALS: full ROM, no lymphadenopathy, supple and no meningeal signs Chest: COMMONS NORMALS: normal inspection of the chest Resp: COMMON NORMALS: normal respiratory effort and clear to auscultation bilaterally AUSCULTATION: clear to auscultation bilaterally Cardio: RATE: tachycardic RHYTHM: abnormal rhythm irregularly irregular GI: COMMON NORMALS: Soft to palpation, non-tender, No hepatosplenomegaly present and no masses INSPECTION: Yes scar and Yes other (ostomy bag with brown foul smelling watery stool) AUSCULTATION: Yes normoactive bowel sounds PALPATION: Yes Soft to palpation and Yes No hepatosplenomegaly present : COMMON NORMALS: Yes no CVA tenderness BLADDER/KIDNEY EXAM: Yes no CVA tenderness Back/Pelvis: COMMON NORMALS: no CVA tenderness and thoracic and lumbar spine normal to inspection Extremity: COMMON NORMALS: normal to inspection GENERAL: Yes normal exam except as noted Neuro: COMMON NORMALS: patient oriented x3, moves all extremities, no focal motor deficits and no sensory deficits noted SENSORIUM/ORIENTATION: Yes alert, Yes oriented to person, Yes oriented to place and Yes oriented to time MENINGEAL SIGNS: Yes no meningeal signs Skin: COMMON NORMALS: no rashes or lesions noted GENERAL SKIN EXAM: no rashes or lesions noted Course Consultations: Consultation #1: Dr. Carter-accepts hospitalization to [facility] Vital Signs: Vital signs: Vital Signs Temperature 97.6 F 12/04/24 09:48 Pulse Rate 107 H 12/04/24 11:35 Respiratory Rate 21 H 12/04/24 11:35 Blood Pressure 128/87 12/04/24 11:35 Pulse Oximetry 96 12/04/24 11:35 Oxygen Delivery Me thod Room Air 12/04/24 09:48 MDM - Nausea/Vomiting/Diarrhea Medical Decision Making Patient is a nice 69-year-old male with a history of colon cancer undergoing chemotherapy here for weakness, nausea, vomiting, loose foul-smelling ostomy output and concern for C. difficile. He arrives in atrial fibrillation with RVR. He does have a history of this. He reportedly takes digoxin. Dig level today was 0.3. He reportedly stopped his anticoagulation stating this was a unilateral decision . Patient was given a liter bolus of fluid by EMS. He was started on maintenance fluids here. He was initially given IV Cardizem bolus which helped his atrial fibrillation temporarily but continues to have rates in the 120s. Cardizem drip ordered. He will be an admit to Dr. Carter to CSU. Dr. Yeboah aware of patient and will place admit orders. C diff still pending at time of admit. Medical Records I reviewed the patient's medical records. Lab Data I reviewed the patient's lab results. 12/04/24 10:40 12/04/24 10:40 Radiology Impressions Chest X-Ray 12/04/24 10:06 IMPRESSION: Stable chest with no acute abnormality. Laboratory Results WBC 10.92 10^3/uL (3.29-11.43) 12/04/24 10:40 RBC 4.51 10^6/uL (3.85-5.65) 12/04/24 10:40 Hgb 14.80 g/dL (11.27-16.99) 12/04/24 10:40 Hct 45.3 % (37-53) 12/04/24 10:40 MCV 100.4 fl (82-101) 12/04/24 10:40 MCH 32.8 pg (27-33) 12/04/24 10:40 MCHC 32.7 g/dL (30-55) 12/04/24 10:40 RDW 16.4 % (12.1-15.1) H 12/04/24 10:40 Plt Count 277 10^3/cmm (157-399) 12/04/24 10:40 MPV 9.5 fL (7.4-10.4) 12/04/24 10:40 Neut % (Auto) 71.7 % 12/04/24 10:40 Lymph % (Auto) 15.6 % 12/04/24 10:40 [place] % (Auto) 10.9 % 12/04/24 10:40 Eos % (Auto) 0.8 % 12/04/24 10:40 Baso % (Auto) 0.3 % 12/04/24 10:40 Neut # (Auto) 7.83 10^3/uL (1.8-7.7) H 12/04/24 10:40 Lymph # (Auto) 1.7 10^3/uL (0.8-4.8) 12/04/24 10:40 [place] # (Auto) 1.2 10^3/uL (0.2-0.9) H 12/04/24 10:40 Eos # (Auto) 0.1 10^3/uL (0.0-0.8) 12/04/24 10:40 Baso # (Auto) 0.0 10^3/uL (0.0-0.1) 12/04/24 10:40 Nucleated RBC % (auto) 0 % 12/04/24 10:40 Nucleated RBCs # 0.0 /100WBC 12/04/24 10:40 Sodium 138 mmol/L (136-145) 12/04/24 10:40 Potassium 4.4 mmol/L (3.5-5.1) 12/04/24 10:40 Chloride 94 mmol/L (98-107) L 12/04/24 10:40 Carbon Dioxide 25 mmol/L (22-29) 12/04/24 10:40 Anion Gap 23.4 (5-19) H 12/04/24 10:40 BUN 23 mg/dL (8-23) 12/04/24 10:40 Creatinine 1.4 mg/dL (0.7-1.2) H 12/04/24 10:40 GFR Calculation 50.2 mL/min (90-130) L 12/04/24 10:40 Glucose 159 mg/dL (65-115) H 12/04/24 10:40 Calculated Osmolality 293 mOsm/kg (285-295) 12/04/24 10:40 Lactic Acid 4.6 mmol/L (0.5-2.2) H* 12/04/24 10:40 Calcium 10.8 mg/dL (8.5-10.5) H 12/04/24 10:40 Total Bilirubin 0.8 mg/dL (0.15-1.2) 12/04/24 10:40 AST 17 U/L (0-40) 12/04/24 10:40 ALT 16 U/L (0-41) 12/04/24 10:40 Alkaline Phosphatase 67 U/L (40-130) 12/04/24 10:40 Troponin T Baseline 32 ng/L (0-15) H 12/04/24 10:40 Troponin T 120 Minute 28.74 ng/L (0-15) H 12/04/24 12:48 Delta Troponin T -3.26 ABS# (0-10) L 12/04/24 12:48 C-Reactive Protein 33.9 mg/L (0.0-4.9) H 12/04/24 10:40 NT-Pro-B Natriuret Pep 308 pg/mL (0-125) H 12/04/24 10:40 Total Protein 6.9 g/dL (6.6-8.7) 12/04/24 10:40 Albumin 4.1 g/dL (3.5-5.2) 12/04/24 10:40 Globulin 2.8 g/dL (1.3-4.6) 12/04/24 10:40 Lipase 46 U/L (13-60) 12/04/24 10:40 Procalcitonin 0.19 ng/mL (0-0.5) 12/04/24 10:40 Urine Color Dark yellow (Yellow) A 12/04/24 11:14 Urine Appearance Clear (CLEAR) 12/04/24 11:14 Urine pH 8.0 (5-7) A 12/04/24 11:14 Ur Specific [place] 1.031 (1.005-1.030) H 12/04/24 11:14 Urine Protein 3+ (Negative) A 12/04/24 11:14 Urine Glucose (UA) Negative (Normal) 12/04/24 11:14 Urine Ketones 1+ (Negative) H 12/04/24 11:14 Urine Blood Negative (Negative) 12/04/24 11:14 Urine Nitrate Negative (Negative) 12/04/24 11:14 Urine Bilirubin 1+ (Negative) H 12/04/24 11:14 Urine Urobilinogen 1.0 mg/dL (Negative) 12/04/24 11:14 Ur Leukocyte Esterase Trace (Negative) A 12/04/24 11:14 Urine RBC 6-10 /hpf (0-2) 12/04/24 11:14 Urine WBC 0-5 /hpf (0-5) 12/04/24 11:14 Ur Squamous Epith Cells 0-5 /hpf (0-5) 12/04/24 11:14 Amorphous Sediment Not Reportable 12/04/24 11:14 Urine Bacteria None seen /hpf (NONE) 12/04/24 11:14 Hyaline Casts 25.23 /lpf 12/04/24 11:14 Fine Granular Casts 0-4 /lpf H 12/04/24 11:14 Digoxin 0.3 ng/mL (0.6-1.2) L 12/04/24 10:40 C. difficile (PCR) Negative (Negative) 12/04/24 11:14 All radiology interpretation(s) finalized by discharge Discharge Plan Discharge Patient Disposition: Admitted As Inpatient Admit Provider: Blanco Carter Clinical Impression: Atrial fibrillation with rapid ventricular response, Dehydration, Recurrent Clostridioides difficile infection, Weakness Condition: Stable Coding Level of Care Code ED Lead Pl Sql Developer for Chg Fwd Documented by User: Jatinder Yeboah DO 12/04/24 13:01 HPI - Nausea/Vomiting/Diarrhea General: Chief complaint: Nausea/Vomiting/Diarrhea Stated complaint: n/v Time Seen by Provider: 12/04/24 09:49 Related Data Home Medications ?Medication ?Instructions ?Recorded ?Confirmed allopurinol 300 mg tablet 300 mg PO DAILY 10/15/19 12/04/24 resveratrol 250 mg capsule 250 mg PO QPM 11/15/20 12/04/24 saw palmetto 500 mg capsule 500 mg PO DAILY 11/15/20 12/04/24 acetaminophen 500 mg tablet 500 mg PO Q6H PRN Pain 10/09/22 12/04/24 trazodone 150 mg tablet 300 mg PO BEDTIME 10/09/22 12/04/24 gabapentin 300 mg capsule 300 mg PO TID 02/04/23 12/04/24 lovastatin 40 mg tablet 40 mg PO BEDTIME 02/05/23 12/04/24 testosterone 1.62 % (40.5 mg/2.5 1 packet topical DAILY 02/11/24 12/04/24 gram) transdermal gel packet albuterol sulfate 90 mcg/actuation 2 puff inhalation Q4H PRN 10/08/24 12/04/24 aerosol inhaler Shortness Of Breath digoxin 125 mcg (0.125 mg) tablet 0.125 mg PO DAILY 10/08/24 12/04/24 epinephrine 0.3 mg/0.3 mL See Rx Instructions .Route .COMPLEX 10/08/24 12/04/24 injection, auto-injector furosemide 20 mg tablet 20 mg PO DAILY 10/08/24 12/04/24 oxycodone 10 mg tablet 10 mg PO Q6H PRN Pain 10/08/24 12/04/24 vancomycin 125 mg capsule 125 mg PO DAILY 12/04/24 12/04/24 Previous Rx's ?Medication ?Instructions ?Recorded metoprolol tartrate 25 mg tablet 25 mg PO Q12H 30 days #180 tabs 10/30/24 Allergies Allergy/AdvReac Type Severity Reaction Status Date / Time blackberry Allergy Unknown ADR-Diarrhe Verified 11/25/24 14:48 a blueberry Allergy Unknown ADR-Diarrhe Verified 11/25/24 14:48 a raspberry Allergy Unknown ADR-Diarrhe Verified 11/25/24 14:48 a strawberry Allergy Unknown ADR-Diarrhe Verified 11/25/24 14:48 a tomato Allergy Unknown ADR-Gastrointestinal Verified 11/25/24 14:48 Upset oats Allergy DIARRHEA Verified 11/25/24 14:48 Opioids - Morphine Analogues Allergy ADR-Chest Verified 11/25/24 14:48 Pain caffeine AdvReac Unknown PALPITATION Verified 11/25/24 14:48 S apple AdvReac DIARRHEA, Verified 11/25/24 14:48 VOMITING AND CRAMPING meperidine (From Demerol) AdvReac EXCESSIVE Verified 11/25/24 14:48 SEDATION morphine AdvReac HALLUCINATI Verified 11/25/24 14:48 ONS PFS ED PFSH: Medical History Orthostatic hypotension Cardiomegaly Afib Hypertension Acute respiratory failure with hypoxia and hypercapnia Tubular adenoma of colon Prolonged bleeding time Metastases to the liver Elevated CEA Liver mass Goiter Colon cancer screening Liver lesion Polycythemia Low testosterone in male Ileus Colon cancer Osteoarthritis 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 (~08/2022) hospitalized in [place] Chronic sinusitis of both maxillary sinuses Gout Asperger syndrome mild Dyslipidemia Degenerative joint disease (DJD) of lumbar spine Obstructive sleep apnea Chronic low back pain Substernal goiter Asthma Restrictive lung disease due to kyphoscoliosis Suspected exposure to asbestos Allergies Right renal stone Testosterone deficiency On TRT for 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 Erectile dysfunction Opioid contract exists previous Chronic pain syndrome Surgical History Hx of bilateral cataract extraction History of colostomy (11/01/22) Colostomy revision for control of bleeding History of exploratory laparotomy (10/15/22) Exploratory laparotomy with partial colon resection and with end colostomy formation Status post left hemicolectomy (10/08/22) laparoscopic converted to open, with splenic flexure takedown and right colon mobilization, primary anastamosis History of back surgery History of shoulder surgery History of appendectomy H/O arthroscopic knee surgery H/O ankle fusion H/O wrist surgery S/P ureteral stent placement Family History Grandfather CAD (coronary artery disease) Family/Other Cancer Grandmother Dementia Stroke Mother Lung disease Other Hypertension Denies family history of Rheumatoid arthritis Diabetes Lupus Clotting disorder Hyperlipidemia Chronic kidney disease (CKD) Suicide Anesthesia complication Bleeding disorder Social History Smoking and tobacco/nicotine status: never used tobacco/nicotine Quit status (tobacco/nicotine): has quit using Year quit tobacco: 1976 [id number] Second hand smoke exposure: Yes Alcohol intake: never Substance/Drug Use: never Lives independently: Yes Current occupational status: retired Pets and animals: Yes Do you think of yourself as: Straight/Heterosexual Current gender identity: Male Course Vital Signs: Vital signs: Vital Signs Temperature 97.6 F 12/04/24 09:48 Pulse Rate 107 H 12/04/24 11:35 Respiratory Rate 21 H 12/04/24 11:35 Blood Pressure 128/87 12/04/24 11:35 Pulse Oximetry 96 12/04/24 11:35 Oxygen Delivery Me thod Room Air 12/04/24 09:48 MDM - Nausea/Vomiting/Diarrhea Medical Decision Making Patient is a nice 69-year-old male with a history of colon cancer undergoing chemotherapy here for weakness, nausea, vomiting, loose foul-smelling ostomy output and concern for C. difficile. He arrives in atrial fibrillation with RVR. He does have a history of this. He reportedly takes digoxin. Dig level today was 0.3. He reportedly stopped his anticoagulation stating this was a unilateral decision . Patient was given a liter bolus of fluid by EMS. He was started on maintenance fluids here. He was initially given IV Cardizem bolus which helped his atrial fibrillation temporarily but continues to have rates in the 120s. Cardizem drip ordered. He will be an admit to Dr. Carter to CSU. Dr. Yeboah aware of patient and will place admit orders. C diff still pending at time of admit. Chart reviewed and patient discussed with midlevel. Agree with assessment and plan. Lab Data 12/04/24 10:40 12/04/24 10:40 Radiology Impressions Chest X-Ray 12/04/24 10:06 IMPRESSION: Stable chest with no acute abnormality. Laboratory Results WBC 10.92 10^3/uL (3.29-11.43) 12/04/24 10:40 RBC 4.51 10^6/uL (3.85-5.65) 12/04/24 10:40 Hgb 14.80 g/dL (11.27-16.99) 12/04/24 10:40 Hct 45.3 % (37-53) 12/04/24 10:40 MCV 100.4 fl (82-101) 12/04/24 10:40 MCH 32.8 pg (27-33) 12/04/24 10:40 MCHC 32.7 g/dL (30-55) 12/04/24 10:40 RDW 16.4 % (12.1-15.1) H 12/04/24 10:40 Plt Count 277 10^3/cmm (157-399) 12/04/24 10:40 MPV 9.5 fL (7.4-10.4) 12/04/24 10:40 Neut % (Auto) 71.7 % 12/04/24 10:40 Lymph % (Auto) 15.6 % 12/04/24 10:40 [place] % (Auto) 10.9 % 12/04/24 10:40 Eos % (Auto) 0.8 % 12/04/24 10:40 Baso % (Auto) 0.3 % 12/04/24 10:40 Neut # (Auto) 7.83 10^3/uL (1.8-7.7) H 12/04/24 10:40 Lymph # (Auto) 1.7 10^3/uL (0.8-4.8) 12/04/24 10:40 [place] # (Auto) 1.2 10^3/uL (0.2-0.9) H 12/04/24 10:40 Eos # (Auto) 0.1 10^3/uL (0.0-0.8) 12/04/24 10:40 Baso # (Auto) 0.0 10^3/uL (0.0-0.1) 12/04/24 10:40 Nucleated RBC % (auto) 0 % 12/04/24 10:40 Nucleated RBCs # 0.0 /100WBC 12/04/24 10:40 Sodium 138 mmol/L (136-145) 12/04/24 10:40 Potassium 4.4 mmol/L (3.5-5.1) 12/04/24 10:40 Chloride 94 mmol/L (98-107) L 12/04/24 10:40 Carbon Dioxide 25 mmol/L (22-29) 12/04/24 10:40 Anion Gap 23.4 (5-19) H 12/04/24 10:40 BUN 23 mg/dL (8-23) 12/04/24 10:40 Creatinine 1.4 mg/dL (0.7-1.2) H 12/04/24 10:40 GFR Calculation 50.2 mL/min (90-130) L 12/04/24 10:40 Glucose 159 mg/dL (65-115) H 12/04/24 10:40 Calculated Osmolality 293 mOsm/kg (285-295) 12/04/24 10:40 Lactic Acid 4.6 mmol/L (0.5-2.2) H* 12/04/24 10:40 Calcium 10.8 mg/dL (8.5-10.5) H 12/04/24 10:40 Total Bilirubin 0.8 mg/dL (0.15-1.2) 12/04/24 10:40 AST 17 U/L (0-40) 12/04/24 10:40 ALT 16 U/L (0-41) 12/04/24 10:40 Alkaline Phosphatase 67 U/L (40-130) 12/04/24 10:40 Troponin T Baseline 32 ng/L (0-15) H 12/04/24 10:40 Troponin T 120 Minute 28.74 ng/L (0-15) H 12/04/24 12:48 Delta Troponin T -3.26 ABS# (0-10) L 12/04/24 12:48 C-Reactive Protein 33.9 mg/L (0.0-4.9) H 12/04/24 10:40 NT-Pro-B Natriuret Pep 308 pg/mL (0-125) H 12/04/24 10:40 Total Protein 6.9 g/dL (6.6-8.7) 12/04/24 10:40 Albumin 4.1 g/dL (3.5-5.2) 12/04/24 10:40 Globulin 2.8 g/dL (1.3-4.6) 12/04/24 10:40 Lipase 46 U/L (13-60) 12/04/24 10:40 Procalcitonin 0.19 ng/mL (0-0.5) 12/04/24 10:40 Urine Color Dark yellow (Yellow) A 12/04/24 11:14 Urine Appearance Clear (CLEAR) 12/04/24 11:14 Urine pH 8.0 (5-7) A 12/04/24 11:14 Ur Specific [place] 1.031 (1.005-1.030) H 12/04/24 11:14 Urine Protein 3+ (Negative) A 12/04/24 11:14 Urine Glucose (UA) Negative (Normal) 12/04/24 11:14 Urine Ketones 1+ (Negative) H 12/04/24 11:14 Urine Blood Negative (Negative) 12/04/24 11:14 Urine Nitrate Negative (Negative) 12/04/24 11:14 Urine Bilirubin 1+ (Negative) H 12/04/24 11:14 Urine Urobilinogen 1.0 mg/dL (Negative) 12/04/24 11:14 Ur Leukocyte Esterase Trace (Negative) A 12/04/24 11:14 Urine RBC 6-10 /hpf (0-2) 12/04/24 11:14 Urine WBC 0-5 /hpf (0-5) 12/04/24 11:14 Ur Squamous Epith Cells 0-5 /hpf (0-5) 12/04/24 11:14 Amorphous Sediment Not Reportable 12/04/24 11:14 Urine Bacteria None seen /hpf (NONE) 12/04/24 11:14 Hyaline Casts 25.23 /lpf 12/04/24 11:14 Fine Granular Casts 0-4 /lpf H 12/04/24 11:14 Digoxin 0.3 ng/mL (0.6-1.2) L 12/04/24 10:40 C. difficile (PCR) Negative (Negative) 12/04/24 11:14 Discharge Plan Discharge Patient Disposition: Admitted As Inpatient Admit Provider: Blanco Carter Clinical Impression: Atrial fibrillation with rapid ventricular response, Dehydration, Recurrent Clostridioides difficile infection, Weakness Condition: Stable Coding Level of Care Code ED Lead Pl Sql Developer for Scarlett San
[2024-12-04] MEDS: ondansetron 2 mg/ML SDV 2 mL 4 MG IVP ×2 (10:45→21:00)
[2024-12-04 10:47] LABS: Basophils % 0.3 %; Eosinophils # 0.1 10^3/uL (0.0-0.8); Eosinophils % 0.8 %; Hematocrit 45.3 % (37-53); Lymphocytes # 1.7 10^3/uL (0.8-4.8); Lymphocytes % 15.6 %; Mean Corpuscular HGB Conc 32.7 g/dL (30-55); Mean Corpuscular Hemoglobin 32.8 pg (27-33); Mean Corpuscular Volume 100.4 fl (82-101); Mean Platelet Volume 9.5 fL (7.4-10.4); Monocytes # 1.2 10^3/uL (0.2-0.9); Monocytes % 10.9 %; Neutrophils # 7.83 10^3/uL (1.8-7.7); Neutrophils % 71.7 %; Nucleated Red Blood Cells % 0 %; Platelet Count 277 10^3/cmm (157-399); Red Blood Count 4.51 10^6/uL (3.85-5.65); Red Cell Distribution Width 16.4 % (12.1-15.1); White Blood Count 10.92 10^3/uL (3.29-11.43)
[2024-12-04] MEDS: dilTIAZem 5 mg/mL SDV 5 mL 10 MG IVP (10:47)
[2024-12-04 11:05] LABS: Troponin(5th) Baseline 32 ng/L (0-15)
[2024-12-04 11:06] LABS: Digoxin 0.3 ng/mL (0.6-1.2)
[2024-12-04 11:08] LABS: Alanine Aminotransferase 16 U/L (0-41); Albumin Level 4.1 g/dL (3.5-5.2); Alkaline Phosphatase 67 U/L (40-130); Anion Gap 23.4 (5-19); Aspartate Amino Transferase 17 U/L (0-40); Blood Urea Nitrogen 23 mg/dL (8-23); Calcium 10.8 mg/dL (8.5-10.5); Carbon Dioxide 25 mmol/L (22-29); Chloride 94 mmol/L (98-107); Creatinine Clr Calc Pharmacy 71.8278; Globulin 2.8 g/dL (1.3-4.6); Glomerular Filtration Rate 50.2 mL/min (90-130); Glucose 159 mg/dL (65-115); Lipase 46 U/L (13-60); Osmolality Calculated 293 mOsm/kg (285-295); Potassium 4.4 mmol/L (3.5-5.1); Sodium 138 mmol/L (136-145); Total Bilirubin 0.8 mg/dL (0.15-1.2); Total Protein 6.9 g/dL (6.6-8.7)
[2024-12-04 12:15] LABS: C.Diff PCR (Lab) NEGATIVE (Negative)
--- NOTE | 2024-12-04 12:22 | ECG_ITS ---
[facility] Test Date: 2024-12-04 Pat Name: Charan Voss Department: Room: Gender: Male Manager Provider Relations: : 1955 Requested By: Emi Callejas Order Number: [id number] Richard MD: Lance Feliz M.D. Measurements Intervals [place] Rate: 124 P: 0 ME: 0 QRS: 76 QRSD: 104 T: -30 QT: 296 QTc: 425 Interpretive Statements ATRIAL FIBRILLATION WITH RAPID VENTRICULAR RESPONSE POSSIBLE ANTERIOR MYOCARDIAL INFARCTION , OF INDETERMINATE AGE [30 ms Q WAVE IN V3/V4, OR R < 0.2 mV IN V4] Compared to ECG 12/04/2024 10:01:34 T-wave abnormality no longer present Possible ischemia no longer present Myocardial infarct finding still present Electronically Signed On 12-05-2024 19:32:39 ASSOCIATE PROFESSOR OF RADIOLOGY by Lance Feliz M.D. [email or web address]
[2024-12-04] MEDS: dilTIAZem 100 MG in sodium chloride 0.9% (add-van) 100 ML IV (12:25)
[2024-12-04] MEDS: sodium chloride 0.9% 1,000 ML 100 ML IV (12:26)
--- NOTE | 2024-12-04 12:26 | CT_ITS ---
WS: [id number] CT ABDOMEN AND PELVIS NONCONTRAST HISTORY: n/v/diarrhea TECHNIQUE: Imaging performed through the abdomen and pelvis. Coronal and sagittal reformats are submitted. All CT scans at [facility] use at least one of these dose optimization techniques: automated exposure control; mA and/or kV adjustment per patient size (includes targeted exams where dose is matched to clinical indication); or iterative reconstruction. DLP: 1165.71 mGy.cm COMPARISON: 11/20/2024 Lower thorax: Lung bases are clear. Visualized heart is normal. Small hiatal hernia. Liver: Artifact of the upper abdominal structures from patient's spinal hardware. Patient has no metastatic disease to the liver which has been previously described. Metastatic site in the RIGHT inferior lobe of the liver is reidentified and probably progressed since 02/10/2024. Gallbladder: Normal gallbladder. No pericholecystic fluid or cholelithiasis. No gallbladder wall thickening. Pancreas: Normal size and attenuation. Normal pancreatic duct. No pancreatitis or mass. Spleen: Normal. Adrenal glands: Normal. No mass. Right kidney: Perinephric stranding. More focal perinephric stranding along the lower pole. There is a nonobstructing calcification in the central renal pelvis. Left kidney: Known renal cyst. No obstruction. Aorta: Mild atherosclerosis abdominal aorta with no aneurysm. No free fluid, intraperitoneal air or significant lymphadenopathy. GI tract: Marked fluid distention of the stomach and proximal small bowel. Proximal jejunum is dilated. Transition point appears to be in the mid abdomen and may be secondary to an adhesion. Distal small bowel is collapsed. No free air or ischemia is identified. Sigmoid stump from prior colectomy appears intact and stable. RIGHT partial colectomy with RIGHT lower quadrant colostomy. Abdominal wall: Negative. No hernia. Pelvis: Minimally distended urinary bladder. No free fluid. No adenopathy. Osseous structures: Advanced thoracolumbar scoliosis. Marr rods in the thoracic spine. Fusion hardware in the lower lumbar spine. CT/CT abdomen pelvis wo con [id number] IMPRESSION: 1. Development off a small bowel obstruction since 11/20/2024. Moderate small bowel obstruction in the proximal to mid jejunum. The distal small bowel is col lapsed. Transition site is in the LEFT lower quadrant towards the midline. 2. Partial colectomy with RIGHT lower quadrant colostomy. 3. Patient has known metastatic disease in the liver. Difficult to quantify on this noncontrast study but probably progressed since the most recent studies.
--- NOTE | 2024-12-04 12:37 | PM.HP ---
Providers/Chief Complaint Primary Care Provider: Al Álvarez MD Chief Complaint: n/v History of Present Illness Charan Voss is a 69 year old male with a past medical history of colon cancer, on chemotherapy, last session of chemotherapy was a week ago, he is history of recurrent C. difficile colitis, atrial fibrillation, he is taken himself off anticoagulation for the last 3 months, due to concerns for bruising, history of decubitus ulcer, history of colostomy present, who presents [facility] noted nausea, vomiting, diarrhea, fatigue, malaise. Currently patient is alert oriented x 3, following commands, in A-fib with RVR heart rates in the 130s, no evidence of respiratory distress, no chest pain. He tells that for the last few days he has had nausea, vomiting, diarrhea he thinks he has C. difficile again. He does report bilious emesis today. No history of food poisoning, he goes to [facility] for his chemotherapy, denies any lightheadedness, dizziness Review of Systems Const: Reports: fatigue and malaise; Denies: fever(s), chills or night sweats Card: Denies: chest pain Resp: Denies: dyspnea GI: Reports: nausea, vomiting and diarrhea; Denies: abdominal pain : Denies: flank pain or difficulty urinating Medications/Allergies Home Medications ?Medication ?Instructions ?Recorded ?Confirmed ?Last Taken ?Type allopurinol 300 mg tablet 300 mg PO DAILY 10/15/19 12/04/24 12/04/24 History resveratrol 250 mg capsule 250 mg PO QPM 11/15/20 12/04/24 10/07/24 History saw palmetto 500 mg capsule 500 mg PO DAILY 11/15/20 12/04/24 10/07/24 History acetaminophen 500 mg tablet 500 mg PO Q6H PRN Pain 10/09/22 12/04/24 01/09/24 History trazodone 150 mg tablet 300 mg PO BEDTIME 10/09/22 12/04/24 12/03/24 History gabapentin 300 mg capsule 300 mg PO TID 02/04/23 12/04/24 12/04/24 History lovastatin 40 mg tablet 40 mg PO BEDTIME 02/05/23 12/04/24 12/03/24 History testosterone 1.62 % (40.5 mg/2.5 1 packet topical DAILY 02/11/24 12/04/24 12/04/24 History gram) transdermal gel packet albuterol sulfate 90 mcg/actuation 2 puff inhalation Q4H PRN 10/08/24 12/04/24 Unknown History aerosol inhaler Shortness Of Breath digoxin 125 mcg (0.125 mg) tablet 0.125 mg PO DAILY 10/08/24 12/04/24 10/08/24 History epinephrine 0.3 mg/0.3 mL See Rx Instructions .Route .COMPLEX 10/08/24 12/04/24 Unknown History injection, auto-injector furosemide 20 mg tablet 20 mg PO DAILY 10/08/24 12/04/24 12/04/24 History oxycodone 10 mg tablet 10 mg PO Q6H PRN Pain 10/08/24 12/04/24 12/04/24 History metoprolol tartrate 25 mg tablet 25 mg PO Q12H 30 days #180 tabs 10/30/24 12/04/24 12/04/24 Rx vancomycin 125 mg capsule 125 mg PO DAILY 12/04/24 12/04/24 Unknown History Allergies Allergy/AdvReac Type Severity Reaction Status Date / Time blackberry Allergy Unknown ADR-Diarrhe Verified 11/25/24 14:48 a blueberry Allergy Unknown ADR-Diarrhe Verified 11/25/24 14:48 a raspberry Allergy Unknown ADR-Diarrhe Verified 11/25/24 14:48 a strawberry Allergy Unknown ADR-Diarrhe Verified 11/25/24 14:48 a tomato Allergy Unknown ADR-Gastrointestinal Verified 11/25/24 14:48 Upset oats Allergy DIARRHEA Verified 11/25/24 14:48 Opioids - Morphine Analogues Allergy ADR-Chest Verified 11/25/24 14:48 Pain caffeine AdvReac Unknown PALPITATION Verified 11/25/24 14:48 S apple AdvReac DIARRHEA, Verified 11/25/24 14:48 VOMITING AND CRAMPING meperidine (From Demerol) AdvReac EXCESSIVE Verified 11/25/24 14:48 SEDATION morphine AdvReac HALLUCINATI Verified 11/25/24 14:48 ONS PFSH Acute PFSH: Medical History Orthostatic hypotension Cardiomegaly Afib Hypertension Acute respiratory failure with hypoxia and hypercapnia Tubular adenoma of colon Prolonged bleeding time Metastases to the liver Elevated CEA Liver mass Goiter Colon cancer screening Liver lesion Polycythemia Low testosterone in male Ileus Colon cancer Osteoarthritis 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 (~08/2022) hospitalized in [place] Chronic sinusitis of both maxillary sinuses Gout Asperger syndrome mild Dyslipidemia Degenerative joint disease (DJD) of lumbar spine Obstructive sleep apnea Chronic low back pain Substernal goiter Asthma Restrictive lung disease due to kyphoscoliosis Suspected exposure to asbestos Allergies Right renal stone Testosterone deficiency On TRT for 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 Erectile dysfunction Opioid contract exists previous Chronic pain syndrome Surgical History Hx of bilateral cataract extraction History of colostomy (11/01/22) Colostomy revision for control of bleeding History of exploratory laparotomy (10/15/22) Exploratory laparotomy with partial colon resection and with end colostomy formation Status post left hemicolectomy (10/08/22) laparoscopic converted to open, with splenic flexure takedown and right colon mobilization, primary anastamosis History of back surgery History of shoulder surgery History of appendectomy H/O arthroscopic knee surgery H/O ankle fusion H/O wrist surgery S/P ureteral stent placement Family History Grandfather CAD (coronary artery disease) Family/Other Cancer Grandmother Dementia Stroke Mother Lung disease Other Hypertension Denies family history of Rheumatoid arthritis Diabetes Lupus Clotting disorder Hyperlipidemia Chronic kidney disease (CKD) Suicide Anesthesia complication Bleeding disorder Social History Smoking and tobacco/nicotine status: never used tobacco/nicotine Quit status (tobacco/nicotine): has quit using Year quit tobacco: 1976 [id number] Second hand smoke exposure: Yes Alcohol intake: never Substance/Drug Use: never Lives independently: Yes Current occupational status: retired Pets and animals: Yes Do you think of yourself as: Straight/Heterosexual Current gender identity: Male Vitals/I&O/Wt Last Vital Signs Temp 97.6 F 12/04/24 09:48 Pulse 107 H 12/04/24 11:35 Resp 21 H 12/04/24 11:35 BP 128/87 12/04/24 11:35 Pulse Ox 96 12/04/24 11:35 O2 Del Method Room Air 12/04/24 09:48 Weight last 48 hrs Weight 124.738 kg Physical Exam Const: COMMON NORMALS: no acute distress and patient oriented x3 HENMT: COMMON NORMALS: normocephalic HEAD & SCALP: normocephalic Eye: COMMON NORMALS: Equal, round and reactive pupils present Neck/C-Spine: COMMON NORMALS: no JVD Resp: COMMON NORMALS: normal respiratory effort, No retractions, No use of accessory muscles and clear to auscultation bilaterally AUSCULTATION: clear to auscultation bilaterally Cardio: COMMON NORMALS: regular rate, regular rhythm, S1 normal heart sound present and S2 normal heart sound present RATE: regular rate RHYTHM: regular rhythm HEART SOUNDS: S1 normal heart sound present and S2 normal heart sound present GI: OTHER: Abdomen is soft, distended, colostomy present, no guarding, rebound, rigidity, Extremity: COMMON NORMALS: no calf tenderness and no pedal edema Neuro: COMMON NORMALS: patient oriented x3, CN's II-XII intact bilaterally and moves all extremities Psych: COMMON NORMALS: mental status grossly normal Data 12/04/24 10:40 12/04/24 10:40 A&P Assessment and plan (1) Acute kidney injury: (2) Atrial fibrillation: (3) Clostridium difficile colitis: (4) Diarrhea: Plan Acute kidney injury, likely secondary to dehydration, IV fluids Atrial fibrillation with rapid ventricular response ? Start Cardizem drip ? Patient declines anticoagulant therapy due to his risk of developing bruising, has not taken it for the last 3 months Diarrhea ? Concern for C. difficile colitis ? Start Flagyl, start p.o. vancomycin -Await stool studies ? CMV studies -ct abdomen and pelvis History of colon cancer, on chemotherapy, isolation precautions Full code # Lovenox for DVT prophylaxis PDMP PDMP Reviewed: Not Reviewed Attestations Medical Necessity Statement*: Patient requires hospitalization, inpatient, greater than 2 midnights for atrial fibrillation, TALON, diarrhea Diagnoses Acute kidney injury N17.9 Atrial fibrillation I48.91 Clostridium difficile colitis A04.72 Diarrhea R19.7
[2024-12-04 12:51] LABS: Bilirubin Urine 1+ (Negative); Blood Urine Negative (Negative); Glucose Urine UA Negative (Normal); Ketones Urine 1+ (Negative); Leukocyte Esterase Urine Trace (Negative); Nitrate Urine Negative (Negative); Protein Urine 3+ (Negative); Urine Appearance Clear (CLEAR); Urine Color Dark Yellow (Yellow)
[2024-12-04 12:55] LABS: Add Urine Microscopic? YES; Bacteria Urine None Seen /hpf; Hyaline Casts Urine 25.23 /lpf; Squamous Epithelial Cell Urine 0-5 /hpf (0-5); WBC Urine 0-5 /hpf (0-5)
[2024-12-04 13:10] LABS: NT Pro B Type Natriuretic Pept 308 pg/mL (0-125); Procalcitonin 0.19 ng/mL (0-0.5)
[2024-12-04 13:11] LABS: Lactic Sepsis W/Reflex 4.6 mmol/L (0.5-2.2)
[2024-12-04 13:15] LABS: Add Urine Culture? No; Fine Granular Casts Urine 0-4 /lpf; Specific Gravity, Urine 1.031 (1.005-1.030)
[2024-12-04 13:18] LABS: Troponin 5 2HR 28.74 ng/L (0-15)
[2024-12-04 13:19] LABS: Troponin 5 2HR Delta -3.26 ABS# (0-10)
[2024-12-04 13:20] LABS: C Reactive Protein 33.9 mg/L (0.0-4.9)
[2024-12-04 14:25] LABS: Reflex Lactate Order REFLEX LACTIC ORDERD
[2024-12-04] MEDS: vancomycin 125 mg Capsule PO (14:45)
[2024-12-04] MEDS: sodium chloride 0.9% 500 ML 600 ML IV (14:46)
[2024-12-04] MEDS: metroNIDAZOLE IV 500 MG/100 ML PREMIX 100 MG IV ×2 (14:48→21:00)
[2024-12-04 15:08] LABS: Influenza A NEGATIVE (Negative); Influenza B NEGATIVE (Negative); Respiratory Syncytial Virus Ce NEGATIVE (Negative); SARS-CoV-2 PCR NEGATIVE (Negative)
[2024-12-04 15:53] LABS: Estmated Average Glucose 126
[2024-12-04 16:09] LABS: Chol HDL Ratio 6.06 mg/dL (1.0-5.00); Cholesterol 206 mg/dL (0-200); HDL Cholesterol 34 mg/dL (60-100); LDL Cholesterol Calculated 119 mg/dL (50-129); Thyroid Stimulating Hormone 2.34 uIU/mL (0.27-4.20); Triglycerides 266 mg/dL (0-150)
--- NOTE | 2024-12-04 16:21 | ECG_ITS ---
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 Measurements Intervals [place] Rate: 94 P: 0 TX: 0 QRS: -2 QRSD: 103 T: 68 QT: 351 QTc: 441 Interpretive Statements ATRIAL FIBRILLATION NONSPECIFIC ST & T-WAVE ABNORMALITY Compared to ECG 12/04/2024 12:22:19 T-wave abnormality now present Myocardial infarct finding no longer present Electronically Signed On 12-05-2024 19:30:15 PATTERN ASSEMBLER by Lance Feliz M.D. [email or web address]
--- NOTE | 2024-12-04 16:34 | XRR_ITS ---
PROCEDURE INFORMATION: Exam: XR Chest Exam date and time: 12/04/2024 5:11 PM Age: 69 years old Clinical indication: Device placement; Ng tube; Additional info: Ng placement TECHNIQUE: Imaging protocol: Radiologic exam of the chest. Views: 1 view. COMPARISON: CR XR chest 1V portable [id number] 12/04/2024 10:40 AM FINDINGS: Tubes, catheters and devices: Nasogastric tube extends into the fundus of the stomach. Right IJ central line tip in SVC. Lungs: Suboptimal pulmonary expansion with associated accentuation of bronchovascular markings. Pleural spaces: No pleural effusion; right lateral chest partially excluded from the exam. Heart/Mediastinum: Cardiomediastinal contours accentuated by low lung volumes and AP technique. Bones/joints: Thoracolumbar spine fusion hardware present. XR/XR chest 1V portable [id number] IMPRESSION: Nasogastric tube extending into the stomach.
[2024-12-04] MEDS: metoclopramide 5 mg/mL SDV 2 mL IVP (16:36)
--- NOTE | 2024-12-04 16:41 | PM.CONSULT ---
Providers/Reason For Consult Consulting Physician/Specialty*: General Surgery Reason for Consult*: Bowel obstruction Attending Physician: Blanco Carter MD Primary Care Provider: Al Álvarez MD History of Present Illness History of Present Illness Charan Voss is a 69 year old male who presents to the hospital with nausea vomiting with increased ostomy output and abdominal pain. Patient had a near total colectomy with and right colostomy in 2022 for colon cancer. He since then has had multiple episodes of C. difficile and 1 episode of a small bowel obstruction. According to the patient he started to notice increased output from his ostomy which was foul-smelling as well as nausea and vomiting he thought he was having a new episode of C. difficile and therefore presented to the ER. He was evaluated by the medical team and admitted to the [facility] as he was in A-fib. CT scan done in the ER showed evidence of a mild to moderate the small bowel obstruction in the left upper abdomen with a transition point near the midline. I was consulted for this finding. Ostomy has been productive of large amount of stool but less gas than usual. Review of Systems General: Reports: 10 or more systems reviewed and unremarkable except in HPI and below Medications/Allergies Home Medications ?Medication ?Instructions ?Recorded ?Confirmed ?Last Taken ?Type allopurinol 300 mg tablet 300 mg PO DAILY 10/15/19 12/04/24 12/04/24 History resveratrol 250 mg capsule 250 mg PO QPM 11/15/20 12/04/24 10/07/24 History saw palmetto 500 mg capsule 500 mg PO DAILY 11/15/20 12/04/24 10/07/24 History acetaminophen 500 mg tablet 500 mg PO Q6H PRN Pain 10/09/22 12/04/24 01/09/24 History trazodone 150 mg tablet 300 mg PO BEDTIME 10/09/22 12/04/24 12/03/24 History gabapentin 300 mg capsule 300 mg PO TID 02/04/23 12/04/24 12/04/24 History lovastatin 40 mg tablet 40 mg PO BEDTIME 02/05/23 12/04/24 12/03/24 History testosterone 1.62 % (40.5 mg/2.5 1 packet topical DAILY 02/11/24 12/04/24 12/04/24 History gram) transdermal gel packet albuterol sulfate 90 mcg/actuation 2 puff inhalation Q4H PRN 10/08/24 12/04/24 Unknown History aerosol inhaler Shortness Of Breath digoxin 125 mcg (0.125 mg) tablet 0.125 mg PO DAILY 10/08/24 12/04/24 10/08/24 History epinephrine 0.3 mg/0.3 mL See Rx Instructions .Route .COMPLEX 10/08/24 12/04/24 Unknown History injection, auto-injector furosemide 20 mg tablet 20 mg PO DAILY 10/08/24 12/04/24 12/04/24 History oxycodone 10 mg tablet 10 mg PO Q6H PRN Pain 10/08/24 12/04/24 12/04/24 History metoprolol tartrate 25 mg tablet 25 mg PO Q12H 30 days #180 tabs 10/30/24 12/04/24 12/04/24 Rx vancomycin 125 mg capsule 125 mg PO DAILY 12/04/24 12/04/24 Unknown History Allergies Allergy/AdvReac Type Severity Reaction Status Date / Time blackberry Allergy Unknown ADR-Diarrhe Verified 11/25/24 14:48 a blueberry Allergy Unknown ADR-Diarrhe Verified 11/25/24 14:48 a raspberry Allergy Unknown ADR-Diarrhe Verified 11/25/24 14:48 a strawberry Allergy Unknown ADR-Diarrhe Verified 11/25/24 14:48 a tomato Allergy Unknown ADR-Gastrointestinal Verified 11/25/24 14:48 Upset oats Allergy DIARRHEA Verified 11/25/24 14:48 Opioids - Morphine Analogues Allergy ADR-Chest Verified 11/25/24 14:48 Pain caffeine AdvReac Unknown PALPITATION Verified 11/25/24 14:48 S apple AdvReac DIARRHEA, Verified 11/25/24 14:48 VOMITING AND CRAMPING meperidine (From Demerol) AdvReac EXCESSIVE Verified 11/25/24 14:48 SEDATION morphine AdvReac HALLUCINATI Verified 11/25/24 14:48 ONS Current Medications Generic Name Dose Route Start Last Admin Trade Name Freq PRN Reason Stop Dose Admin Diltiazem HCl 100 mg/ Sodium 100 mls @ 0 mls/hr 12/04/24 12:00 12/04/24 14:46 Chloride IV 7.5 mg/hr .Q0M SOFIA 7.5 mls/hr Titration Protocol Per Protocol Sodium Chloride 1,000 mls @ 100 mls/hr 12/04/24 12:15 12/04/24 12:26 Sodium Chloride 0.9% IV 12/04/24 22:14 100 mls/hr .Q10H ONE Administration Metronidazole 500 mg in 100 mls @ 100 mls/hr 12/04/24 12:30 12/04/24 16:07 Flagyl Iv IV Infused Q8H SOFIA Infusion Protocol Metoclopramide HCl 5 mg 12/04/24 16:14 12/04/24 16:36 Metoclopramide 5 Mg/Ml Sdv 2 Ml IVP 5 mg Q6H PRN Administration NAUSEA AND VOMITING Vancomycin HCl 125 mg 12/04/24 13:00 12/04/24 14:45 Vancomycin 125 Mg Capsule PO 125 mg QID SOFIA Administration PFSH Acute PFSH: Medical History Orthostatic hypotension Cardiomegaly Afib Hypertension Acute respiratory failure with hypoxia and hypercapnia Tubular adenoma of colon Prolonged bleeding time Metastases to the liver Elevated CEA Liver mass Goiter Colon cancer screening Liver lesion Polycythemia Low testosterone in male Ileus Colon cancer Osteoarthritis 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 (~08/2022) hospitalized in [place] Chronic sinusitis of both maxillary sinuses Gout Asperger syndrome mild Dyslipidemia Degenerative joint disease (DJD) of lumbar spine Obstructive sleep apnea Chronic low back pain Substernal goiter Asthma Restrictive lung disease due to kyphoscoliosis Suspected exposure to asbestos Allergies Right renal stone Testosterone deficiency On TRT for 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 Erectile dysfunction Opioid contract exists previous Chronic pain syndrome Surgical History Hx of bilateral cataract extraction History of colostomy (11/01/22) Colostomy revision for control of bleeding History of exploratory laparotomy (10/15/22) Exploratory laparotomy with partial colon resection and with end colostomy formation Status post left hemicolectomy (10/08/22) laparoscopic converted to open, with splenic flexure takedown and right colon mobilization, primary anastamosis History of back surgery History of shoulder surgery History of appendectomy H/O arthroscopic knee surgery H/O ankle fusion H/O wrist surgery S/P ureteral stent placement Family History Grandfather CAD (coronary artery disease) Family/Other Cancer Grandmother Dementia Stroke Mother Lung disease Other Hypertension Denies family history of Rheumatoid arthritis Diabetes Lupus Clotting disorder Hyperlipidemia Chronic kidney disease (CKD) Suicide Anesthesia complication Bleeding disorder Social History Smoking and tobacco/nicotine status: never used tobacco/nicotine Quit status (tobacco/nicotine): has quit using Year quit tobacco: 1976 [id number] Second hand smoke exposure: Yes Alcohol intake: never Substance/Drug Use: never Lives independently: Yes Current occupational status: retired Pets and animals: Yes Do you think of yourself as: Straight/Heterosexual Current gender identity: Male Vitals/I&O/Wt Last Vital Signs Temp 97.6 F 12/04/24 09:48 Pulse 111 H 12/04/24 14:00 Resp 21 H 12/04/24 14:00 BP 151/86 12/04/24 14:00 Pulse Ox 95 12/04/24 14:00 O2 Del Method Room Air 12/04/24 09:48 12/04/24 12/04/24 12/04/24 06:59 14:59 22:59 Intake Total 11.75 / 11.75 100 / 111.75 Balance 11.75 / 11.75 100 / 111.75 Weight last 48 hrs Weight 275 lb Physical Exam Narrative: General : Patient is well developed , no acute distress, oriented x3 Head : Normal cephalic, a-traumatic. Nose : Mucous membranes are without erythema. Lungs : Equal chest rise bilaterally, no use of accessory muscles, trachea is midline. CV : Rate and rhythm are normal. Abdomen : Abdominal exam is benign, he has a ostomy on the right lower quadrant which is healthy and pink, productive of gas and stool at this time. Abdomen is soft very minimal tenderness to palpation in the lower abdomen, there is some bowel sounds. Extremities : No edema. Upper extremities are normal bilaterally. Back : non-tender to palpation, no CVA tenderness. Data 12/04/24 10:40 12/04/24 10:40 Micro: Microbiology 12/04/24 14:27 Blood Culture - Preliminary Blood SPECIMEN COLLECTED 12/04/24 14:27 Blood Culture - Preliminary Blood SPECIMEN COLLECTED 12/04/24 11:14 Stool Lactoferrin - Final Stool Occult Blood (FIT) - Final A&P Assessment and plan (1) Malignant neoplasm of splenic flexure: (2) Colostomy complication: (3) Metastatic colon cancer to liver: Plan 69-year-old male with multiple intra-abdominal surgeries presenting with a clinical picture concerning for the possibility of an early small bowel obstruction. NG tube was placed with immediate evacuation of about 400 cc of clear bilious fluid. The plan will be to decompress for next 24 to 48 hours and monitor ostomy output. If by tomorrow ostomy output has improved and there is good amount of gas and stool I will probably proceed to do a Gastrografin trial and then remove the NG tube and allow the patient to have diet. In the case of low ostomy output and high NG output will do decompression for another 24 hours before proceeding to a Gastrografin trial. Will continue IV fluid resuscitation pain control and management of comorbidities per medical team. Of note his C. difficile sample is negative today. PDMP PDMP Reviewed: Not Reviewed Coding Level of Care Code 77735 Diagnoses Malignant neoplasm of splenic flexure C18.5 Colostomy complication K94.00 Metastatic colon cancer to liver C18.9; C78.7
--- NOTE | 2024-12-04 16:42 | PC.NURSE ---
PO medications on hold for now per Dr Carter.
[2024-12-04] MEDS: pantoprazole 40 mg SDV IVP (16:57)
[2024-12-04] MEDS: enoxaparin 40 mg/0.4 mL Syringe SUBCUT (16:58)
[2024-12-04] MEDS: ciprofloxacin 400 MG/200 ML PREMIX 200 MG IV (21:00)
[2024-12-04] MEDS: oxyCODONE 5 mg IR Tab/Cap 10 MG PO (22:01)
--- NOTE | 2024-12-04 22:52 | PC.NURSE ---
2102- Patient complaining of heartburn and generalized pain. Requesting medication to help relief these symptoms. Recieved orders for 2 mg IV morhpine. Per patient has develops severe hallucinations and confusion with morphine and requesting dilaudid. At this moment per MD try morhpine then reach out if it causes confusion. For indigestion just continue protonix IV BID. patient refusing morphine at this time, will give PO oxycodone at this time and monitor for nausea.
[2024-12-05] VITALS (10 sets, daily range): BP systolic 123–135; BP diastolic 76–91; PULSE 84–98; RESP 18–22; TEMP 36.5–37.2; O2SAT 96–98
[2024-12-05] MEDS: dilTIAZem 100 MG in sodium chloride 0.9% (add-van) 100 ML IV (01:11)
[2024-12-05] MEDS: pantoprazole 40 mg SDV IVP ×2 (03:35→17:48)
[2024-12-05] MEDS: metroNIDAZOLE IV 500 MG/100 ML PREMIX 100 MG IV ×3 (03:39→20:10)
[2024-12-05] MEDS: phenol oral Spray 177 mL 3 SPRAY MUCOUS MEM (04:33)
[2024-12-05 05:21] LABS: Basophils % 0.4 %; Eosinophils # 0.1 10^3/uL (0.0-0.8); Eosinophils % 0.9 %; Hematocrit 44.8 % (37-53); Lymphocytes # 1.4 10^3/uL (0.8-4.8); Lymphocytes % 13.1 %; Mean Corpuscular Hemoglobin 32.7 pg (27-33); Mean Corpuscular Volume 105.4 fl (82-101); Mean Platelet Volume 9.5 fL (7.4-10.4); Monocytes # 1.1 10^3/uL (0.2-0.9); Monocytes % 10.6 %; Neutrophils # 7.88 10^3/uL (1.8-7.7); Neutrophils % 74.5 %; Nucleated Red Blood Cells % 0 %; Platelet Count 178 10^3/cmm (157-399); Red Blood Count 4.25 10^6/uL (3.85-5.65); Red Cell Distribution Width 16.7 % (12.1-15.1); White Blood Count 10.58 10^3/uL (3.29-11.43)
[2024-12-05 05:52] LABS: Blood Urea Nitrogen 26 mg/dL (8-23); Calcium 9.5 mg/dL (8.5-10.5); Carbon Dioxide 29 mmol/L (22-29); Chloride 97 mmol/L (98-107); Creatinine Clr Calc Pharmacy 71.5849; Glomerular Filtration Rate 50.2 mL/min (90-130); Glucose 131 mg/dL (65-115); Osmolality Calculated 299 mOsm/kg (285-295); Sodium 141 mmol/L (136-145)
[2024-12-05 05:59] LABS: Anion Gap 19.5 (5-19); Potassium 4.5 mmol/L (3.5-5.1)
--- NOTE | 2024-12-05 06:23 | XRR_ITS ---
PROCEDURE INFORMATION: Exam: XR Abdomen Exam date and time: 12/05/2024 6:29 AM Age: 69 years old Clinical indication: Device placement; Gi device; Nasogastric tube; Additional info: Ng position TECHNIQUE: Imaging protocol: Radiologic exam of the abdomen. Views: Frontal supine view of the abdomen. 1 View. COMPARISON: CT abdomen pelvis con [id number] 12/04/2024 1:23 PM FINDINGS: Tubes, catheters and devices: Nasogastric tube terminates in the mid gastric body. Gastrointestinal tract: Normal. No bowel dilation. Bones/joints: Unremarkable. XR/XR abdomen 1V* [id number] IMPRESSION: Nasogastric tube terminates in the mid gastric body.
[2024-12-05 07:30] LABS: Cytomegalovirus Antibody (IGG) <0.60 U/mL; Cytomegalovirus Antibody (IGM) <30.00 AU/mL
--- NOTE | 2024-12-05 07:55 | PC.NURSE ---
Dr. Hawthorne at bedside. Requesting IV pain medications. Recieved orders for 0.4 dilaudid IV PRN Q6h.
--- NOTE | 2024-12-05 07:59 | P.PN_ITS ---
Subjective 2 Subjective: Patient showing adequate progression overnight. Has seen some gas coming into the ostomy. Abdominal pain has improved. NG output remains high it was about 900 overnight another 400 this morning. Vitals/I&O/Wt Last Vital Signs Temp 98.5 F 12/05/24 04:00 Pulse 93 12/05/24 04:00 Resp 18 12/05/24 04:00 BP 123/91 12/05/24 04:00 Pulse Ox 96 12/05/24 04:00 O2 Del Method Nasal Cannula 12/05/24 04:00 O2 Flow Rate 2 12/05/24 04:00 12/04/24 12/05/24 12/05/24 22:59 06:59 14:59 Intake Total 921.875 / 111.563 4102.25 / 2189.875 Output Total 800 / 800 500 / 1300 Balance 121.875 / 133.625 756.25 / 889.875 Weight last 48 hrs Weight 273 lb 1.6 oz Weight 275 lb Physical Exam 2 GI: OTHER: Abdomen is soft and nontender ostomy output with some gas. There is hypoactive but present bowel sounds Data 12/05/24 04:54 12/05/24 04:54 Micro: Microbiology 12/04/24 14:27 Blood Culture - Preliminary Blood SPECIMEN COLLECTED 12/04/24 14:27 Blood Culture - Preliminary Blood SPECIMEN COLLECTED 12/04/24 11:14 Stool Lactoferrin - Final Stool Occult Blood (FIT) - Final A&P Assessment and plan (1) Metastatic colon cancer to liver: (2) Bowel obstruction: Qualifiers: Intestinal obstruction type: paralytic ileus Qualified Code(s): K56.0 - Paralytic ileus Plan Patient showing adequate progression with conservative management of possible SBO. At this point the most likely pathology is a partial small bowel obstruction due to intra-abdominal adhesions. We will continue decompression for another 24 hours as the NG output has remained high. After 24 hours of decompression we will do a Gastrografin trial. Appreciated continuation of medical management by medical team including IV fluid resuscitation, correction of electrolyte imbalances. Patient was informed of the plan and shows understanding. PDMP PDMP Reviewed: Not Reviewed Attestations 2 Medical Necessity Statement*: Per medical team Coding Level of Care Code Acute Code for Chg Fwd Diagnoses Metastatic colon cancer to liver C18.9; C78.7 Bowel obstruction K56.0 Intestinal obstruction type: paralytic ileus
[2024-12-05] MEDS: HYDROMORPHONE HCL 0.5 MG/0.5 ML INJ 0.4 MG IVP ×3 (09:51→20:09)
[2024-12-05] MEDS: ciprofloxacin 400 MG/200 ML PREMIX 200 MG IV ×2 (09:52→21:52)
--- NOTE | 2024-12-05 10:00 | PC.NURSE ---
During patient rounds Dr. Carter stated to continue patient as complete NPO states and to hold po meds..
--- NOTE | 2024-12-05 10:39 | PC.CHAP ---
Pastoral Care Encounter/Spiritual Assessment Type of Contact [] Declined hospital scientist visit [] Patient/Family/Request visit [] Outpatient visit [] Follow-up visit [] Physician referral [] Code/Alert [] Routine visit [] Staff referral [] Actively dying [X] Patient sleeping [] Family support [] [] Out of room [] Palliative care [] [] Receiving care in room [] Pre-surgical visit [] Trauma [] Long length of stay [] ICU visit [] Other: Relational/Emotional Strength [] Patient feels connected with others/family/visitors/staff [] Distress [] Loneliness/isolation [] Abandonment Spirituality of Patient [] Person of Maryanne [] Attends Holiness of their Maryanne [] Believes in Prayer [] Reads Bible or Yazidism materials [] There are Spiritual issues to be addressed Trader 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 [] Prayer [] Active listening [] Non-anxious presence [] Spiritual/emotional support [] Crisis/trauma care [] Spiritual counseling [] Bereavement support [] Provided bereavement packet [] Provided Bible/devotional materials [] Provided toy/stuffed animal, coloring book to patient or family member [] Provided Communion [] Anointing/[place] [] Salvation [] Completed spiritual assessment [] Other: Impact on Illness or Injury [] Angry [] Fearful [] Anxious [] Often cries [] Exhaustion [] Unable to work [] Unable to attend sikhism [] Unable to walk/stand [] Unable to read [] Unable to drive [] Unable to eat/drink [] Unable to sleep [] Unable to be with family [] Patient intubated [] Other: Summary Time spent with patient
--- NOTE | 2024-12-05 13:30 | P.PN_ITS ---
Subjective 2 Subjective: Patient was seen this morning, denies any fevers, no chills, no cough, does report abdominal distention, abdominal pain, he is colostomy output has decreased he tells me, Vitals/I&O/Wt Last Vital Signs Temp 98.7 F 12/05/24 12:00 Pulse 84 12/05/24 12:00 Resp 18 12/05/24 12:00 BP 124/76 12/05/24 12:00 Pulse Ox 97 12/05/24 12:00 O2 Del Method Nasal Cannula 12/05/24 12:00 O2 Flow Rate 2 12/05/24 10:00 12/04/24 12/05/24 12/05/24 22:59 06:59 14:59 Intake Total 921.875 / 473.020 7445.25 / 2189.875 Output Total 800 / 800 500 / 1300 450 / 450 Balance 121.875 / 133.625 756.25 / 889.875 -450 / -450 Weight last 48 hrs Weight 123.876 kg Weight 124.738 kg Physical Exam 2 Const: COMMON NORMALS: no acute distress and patient oriented x3 Resp: COMMON NORMALS: normal respiratory effort, No retractions, No use of accessory muscles and clear to auscultation bilaterally AUSCULTATION: clear to auscultation bilaterally Cardio: COMMON NORMALS: regular rate, regular rhythm, S1 normal heart sound present and S2 normal heart sound present RATE: regular rate RHYTHM: r egular rhythm HEART SOUNDS: S1 normal heart sound present and S2 normal heart sound present GI: OTHER: Abdomen soft, distended, scattered bowel sounds, no guarding, no rebound, no rigidity, colostomy minimal stool in bag Extremity: COMMON NORMALS: no pedal edema Neuro: COMMON NORMALS: patient oriented x3 Psych: COMMON NORMALS: mental status grossly normal Data 12/05/24 04:54 12/05/24 04:54 Micro: Microbiology 12/04/24 14:27 Blood Culture - Preliminary Blood SPECIMEN COLLECTED 12/04/24 14:27 Blood Culture - Preliminary Blood SPECIMEN COLLECTED 12/04/24 11:14 Stool Lactoferrin - Final Stool Occult Blood (FIT) - Final A&P Assessment and plan (1) Acute kidney injury: (2) Atrial fibrillation: (3) Clostridium difficile colitis: (4) Diarrhea: (5) Small bowel obstruction: Plan Acute kidney injury, likely secondary to dehydration, IV fluids Atrial fibrillation with rapid ventricular response ? Start Cardizem drip ? Patient declines anticoagulant therapy due to his risk of developing bruising, has not taken it for the last 3 months Small bowel obstruction -CT scan CT/CT abdomen pelvis wo con [id number] IMPRESSION: 1. Development off a small bowel obstruction since 11/20/2024. Moderate small bowel obstruction in the proximal to mid jejunum. The distal small bowel is collapsed. Transition site is in the LEFT lower quadrant towards the midline. 2. Partial colectomy with RIGHT lower quadrant colostomy. 3. Patient has known metastatic disease in the liver. Difficult to quantify on this noncontrast study but probably progressed since the most recent studies Plan -NG tube in place -IV fluids -N.p.o. -General Surgery on consult Diarrhea ? Concern for C. difficile colitis, PCR is negative, = ? Start Flagyl, start p.o. vancomycin --Await stool studies ? CMV studies History of colon cancer, on chemotherapy, isolation precautions Full code # Lovenox for DVT prophylaxis PDMP PDMP Reviewed: Not Reviewed Attestations 2 Medical Necessity Statement*: Patient requires hospitalization for A-fib, small bowel obstruction, diarrhea , inpatient, greater than 2 midnights Diagnoses Acute kidney injury N17.9 Atrial fibrillation I48.91 Clostridium difficile colitis A04.72 Diarrhea R19.7 Small bowel obstruction K56.609
[2024-12-05] MEDS: enoxaparin 40 mg/0.4 mL Syringe SUBCUT (17:49)
[2024-12-05] MEDS: sodium chloride 0.9% 1,000 ML 125 ML IV (17:50)
[2024-12-06] VITALS (8 sets, daily range): BP systolic 125–153; BP diastolic 76–96; PULSE 69–102; RESP 17–20; TEMP 36.3–37.1; O2SAT 95–100
[2024-12-06] MEDS: phenol oral Spray 177 mL 3 SPRAY MUCOUS MEM
[2024-12-06] MEDS: HYDROMORPHONE HCL 0.5 MG/0.5 ML INJ 0.4 MG IVP ×2 (01:37→08:06)
[2024-12-06] MEDS: pantoprazole 40 mg SDV IVP ×2 (04:01→14:37)
[2024-12-06] MEDS: metroNIDAZOLE IV 500 MG/100 ML PREMIX 100 MG IV ×3 (04:01→20:54)
[2024-12-06 05:37] LABS: Basophils % 0.5 %; Eosinophils # 0.2 10^3/uL (0.0-0.8); Eosinophils % 2.9 %; Hematocrit 40.4 % (37-53); Lymphocytes # 1.5 10^3/uL (0.8-4.8); Lymphocytes % 19.6 %; Mean Corpuscular HGB Conc 31.4 g/dL (30-55); Mean Corpuscular Hemoglobin 33.1 pg (27-33); Mean Corpuscular Volume 105.2 fl (82-101); Mean Platelet Volume 10.5 fL (7.4-10.4); Monocytes # 0.8 10^3/uL (0.2-0.9); Monocytes % 10.7 %; Neutrophils # 4.95 10^3/uL (1.8-7.7); Neutrophils % 65.8 %; Nucleated Red Blood Cells % 0 %; Platelet Count 147 10^3/cmm (157-399); Red Blood Count 3.84 10^6/uL (3.85-5.65); Red Cell Distribution Width 16.2 % (12.1-15.1); White Blood Count 7.54 10^3/uL (3.29-11.43)
[2024-12-06] MEDS: sodium chloride 0.9% 1,000 ML 125 ML IV (05:43)
[2024-12-06 05:52] LABS: Blood Urea Nitrogen 23 mg/dL (8-23); Carbon Dioxide 26 mmol/L (22-29); Chloride 96 mmol/L (98-107); Creatinine Clr Calc Pharmacy 91.1081; Glomerular Filtration Rate 66.4 mL/min (90-130); Glucose 99 mg/dL (65-115); Osmolality Calculated 284 mOsm/kg (285-295); Sodium 135 mmol/L (136-145)
[2024-12-06 05:59] LABS: Anion Gap 16.8 (5-19); Potassium 3.8 mmol/L (3.5-5.1)
[2024-12-06 06:46] LABS: C.Diff PCR (Lab) NEGATIVE (Negative)
[2024-12-06] MEDS: ciprofloxacin 400 MG/200 ML PREMIX 200 MG IV ×2 (08:06→22:24)
[2024-12-06] MEDS: ondansetron 2 mg/ML SDV 2 mL 8 MG IVP (08:31)
--- NOTE | 2024-12-06 09:15 | P.PN_ITS ---
Subjective 2 Subjective: 69-year-old male admitted for possible s mall bowel obstruction in the setting of multiple previous intra-abdominal surgeries and a near total colectomy. He also has history of GI cancer with metastasis to the liver and according to the patient he also has another focus of cancer in the sigmoid colon. Has been doing okay overnight no significant issues output from the NG overnight was 750 but he has been drinking liquid. No abdominal pain ostomy has been productive of gas and stool. Vitals/I&O/Wt Last Vital Signs Temp 98.7 F 12/06/24 08:00 Pulse 90 12/06/24 08:00 Resp 20 H 12/06/24 08:00 BP 153/96 12/06/24 08:00 Pulse Ox 98 12/06/24 08:00 O2 Del Method Nasal Cannula 12/06/24 08:00 O2 Flow Rate 2 12/06/24 08:00 12/05/24 12/06/24 12/06/24 22:59 07:59 14:59 Intake Total 1400 / 1744.083 Output Total 750 / 1420 475 / 2445 550 / 550 Balance -750 / -1075.917 925 / -700.917 -550 / -550 Weight last 48 hrs Weight 269 lb 8 oz Weight 273 lb 1.6 oz Weight 275 lb Physical Exam 2 GI: OTHER: Abdomen soft nontender nondistended there is good bowel sounds in ostomy output is gas and stool. Data 12/06/24 05:05 12/06/24 05:05 Micro: Microbiology 12/04/24 14:27 Blood Culture - Preliminary Blood NEGATIVE TO DATE 12/04/24 14:27 Blood Culture - Preliminary Blood NEGATIVE TO DATE A&P Assessment and plan (1) Bowel obstruction: Qualifiers: Intestinal obstruction type: paralytic ileus Qualified Code(s): K56.0 - Paralytic ileus Plan At this point I think probably his SBO is already resolving. We will obtain Gastrografin trial for complete formation. Gastrografin was administered this morning at 8:30 AM, we will we will obtain the first x-ray at 1 PM. If the x- ray is showing good transition of contrast we will likely discontinue the NG tube allow the patient to eat. PDMP PDMP Reviewed: Not Reviewed Attestations 2 Medical Necessity Statement*: Per medical team Coding Level of Care Code Acute Code for Chg Fwd Diagnoses Bowel obstruction K56.0 Intestinal obstruction type: paralytic ileus
--- NOTE | 2024-12-06 11:06 | XRR_ITS ---
PROCEDURE INFORMATION: Exam: XR Abdomen Exam date and time: 12/06/2024 11:18 AM Age: 69 years old Clinical indication: Abdominal pain; Known sbo; After large volume output to ostomy; Abdominal distention/pain; Metastatic liver CA TECHNIQUE: Imaging protocol: Radiologic exam of the abdomen. Views: Frontal supine view of the abdomen. 1 View. COMPARISON: CR (ABDOMEN, ) 12/05/2024 6:29 AM FINDINGS: Tubes, catheters and devices: Partially visualized nasogastric tube looped within the stomach. Gastrointestinal tract: Normal nonobstructed bowel-gas pattern. Intraperitoneal space: No definitive evidence of intraperitoneal free air on the supine radiographs. No definitive pneumatosis. Bones/joints: Thoracic and lumbosacral hardware is visualized. Dextroscoliosis. XR/XR KUB portable [id number] IMPRESSION: No definitive evidence of high-grade small bowel obstruction. Stable positioning of nasogastric tube which is looped within the stomach.
--- NOTE | 2024-12-06 14:04 | PC.NURSE ---
Per Dr Hawthorne patient can have a clear liquid diet starting now.
[2024-12-06] MEDS: vancomycin 125 mg Capsule PO ×3 (14:07→22:24)
[2024-12-06] MEDS: gabapentin 300 mg Capsule PO ×2 (14:07→20:58)
--- NOTE | 2024-12-06 14:18 | P.PN_ITS ---
Subjective 2 Subjective: Patient was seen this morning, he does have stool in his colostomy bag, no fevers, no chills, no nausea, no vomiting Vitals/I&O/Wt Last Vital Signs Temp 97.4 F L 12/06/24 12:00 Pulse 96 12/06/24 12:00 Resp 20 H 12/06/24 12:00 BP 144/87 12/06/24 12:00 Pulse Ox 100 12/06/24 12:00 O2 Del Method Nasal Cannula 12/06/24 12:00 O2 Flow Rate 2 12/06/24 12:00 12/05/24 12/06/24 12/06/24 22:59 07:59 14:59 Intake Total 1400 / 1744.083 200 / 200 Output Total 750 / 1420 475 / 2445 1650 / 1650 Balance -750 / -1075.917 925 / -700.917 -1450 / -1450 Weight last 48 hrs Weight 122.243 kg Weight 123.876 kg Physical Exam 2 Const: COMMON NORMALS: no acute distress and patient oriented x3 Resp: COMMON NORMALS: normal respiratory effort, No retractions, No use of accessory muscles and clear to auscultation bilaterally AUSCULTATION: clear to auscultation bilaterally Cardio: COMMON NORMALS: regular rate, regular rhythm, S1 normal heart sound present and S2 normal heart sound present RATE: regular rate RHYTHM: r egular rhythm HEART SOUNDS: S1 normal heart sound present and S2 normal heart sound present GI: COMMON NORMALS: Normal to inspection, nondistended, normoactive bowel sounds present and non-tender OTHER: Colostomy present Extremity: COMMON NORMALS: no pedal edema Neuro: COMMON NORMALS: patient oriented x3 Psych: COMMON NORMALS: mental status grossly normal Data 12/06/24 05:05 12/06/24 05:05 Micro: Microbiology 12/04/24 14:27 Blood Culture - Preliminary Blood NEGATIVE TO DATE 12/04/24 14:27 Blood Culture - Preliminary Blood NEGATIVE TO DATE A&P Assessment and plan (1) Acute kidney injury: (2) Atrial fibrillation: (3) Clostridium difficile colitis: (4) Diarrhea: (5) Small bowel obstruction: Plan Acute kidney injury, likely secondary to dehydration, IV fluids Atrial fibrillation with rapid ventricular response ? Transition to p.o. medications ? Patient declines anticoagulant therapy due to his risk of developing bruising, has not taken it for the last 3 months Small bowel obstruction -CT scan CT/CT abdomen pelvis wo con [id number] IMPRESSION: 1. Development off a small bowel obstruction since 11/20/2024. Moderate small bowel obstruction in the proximal to mid jejunum. The distal small bowel is collapsed. Transition site is in the LEFT lower quadrant towards the midline. 2. Partial colectomy with RIGHT lower quadrant colostomy. 3. Patient has known metastatic disease in the liver. Difficult to quantify on this noncontrast study but probably progressed since the most recent studies Plan -NG tube in place -IV fluids -N.p.o. -General Surgery on consult Diarrhea ? Concern for C. difficile colitis, PCR is negative ? 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 vancomycin --Await stool studies ? CMV studies UTI, Rocephin History of colon cancer, on chemotherapy, isolation precautions Full code # Lovenox for DVT prophylaxis PDMP PDMP Reviewed: Not Reviewed Attestations 2 Medical Necessity Statement*: Patient requires hospitalization for bowel obstruction Diagnoses Acute kidney injury N17.9 Atrial fibrillation I48.91 Clostridium difficile colitis A04.72 Diarrhea R19.7 Small bowel obstruction K56.609
--- NOTE | 2024-12-06 14:22 | PC.NURSE ---
Dr Carter asked nursing to give her digoxin that was due this morning now. A new one time order is placed for this.
[2024-12-06] MEDS: digoxin 125 mcg Tablet PO (14:36)
[2024-12-06] MEDS: metoprolol tartrate 25 mg Tablet PO (14:36)
[2024-12-06] MEDS: enoxaparin 40 mg/0.4 mL Syringe SUBCUT (14:37)
--- NOTE | 2024-12-06 14:37 | PM.MISC ---
Miscellaneous Note Purpose of Documentation: Update on patient care Note: After Gastrografin administration patient had several large intestinal movements into his colostomy bag, eliminating almost 2 L of fluid. Subsequent x-ray showed no evidence of obstruction Gastrografin has left the GI system. NG tube was discontinued he can be advance to liquid diet and by tomorrow he can get a GI soft diet prior to discharge. I will recommend that he stays on once a day MiraLAX to prevent further episodes of SBO.
[2024-12-06] MEDS: sodium chloride 0.9% 1,000 ML 75 ML IV (16:58)
[2024-12-06] MEDS: atorvastatin 40 mg Tablet 20 MG PO (20:57)
[2024-12-06] MEDS: oxyCODONE 5 mg IR Tab/Cap 10 MG PO (20:58)
[2024-12-06] MEDS: trazodone 150 mg Tablet 300 MG PO (20:58)
[2024-12-06] MEDS: lidocaine 2% viscous 15 ML, aluminum-mag hydrox-simethicon 30 ML, sucralfate oral liq 1 GM PO (21:28)
[2024-12-07] VITALS (20 sets, daily range): BP systolic 85–150; BP diastolic 63–91; PULSE 81–105; RESP 14–25; TEMP 36.5–37.1; O2SAT 93–100
[2024-12-07] MEDS: metoprolol tartrate 25 mg Tablet PO ×2 (03:38→11:27)
[2024-12-07] MEDS: oxyCODONE 5 mg IR Tab/Cap 10 MG PO ×2 (03:38→20:37)
[2024-12-07] MEDS: pantoprazole 40 mg SDV IVP ×2 (03:38→15:27)
[2024-12-07] MEDS: metroNIDAZOLE IV 500 MG/100 ML PREMIX 100 MG IV ×2 (03:41→12:49)
[2024-12-07 04:38] LABS: Basophils % 0.7 %; Eosinophils # 0.2 10^3/uL (0.0-0.8); Eosinophils % 3.7 %; Lymphocytes # 1.4 10^3/uL (0.8-4.8); Lymphocytes % 24.9 %; Mean Corpuscular Hemoglobin 32.3 pg (27-33); Mean Corpuscular Volume 107.8 fl (82-101); Mean Platelet Volume 10.2 fL (7.4-10.4); Monocytes # 0.7 10^3/uL (0.2-0.9); Monocytes % 12.7 %; Neutrophils # 3.31 10^3/uL (1.8-7.7); Neutrophils % 57.7 %; Nucleated Red Blood Cells % 0 %; Platelet Count 134 10^3/cmm (157-399); Red Blood Count 3.71 10^6/uL (3.85-5.65); Red Cell Distribution Width 15.9 % (12.1-15.1); White Blood Count 5.74 10^3/uL (3.29-11.43)
[2024-12-07 05:01] LABS: Blood Urea Nitrogen 17 mg/dL (8-23); Carbon Dioxide 27 mmol/L (22-29); Chloride 98 mmol/L (98-107); Creatinine Clr Calc Pharmacy 100.0043; Glomerular Filtration Rate 74.1 mL/min (90-130); Glucose 91 mg/dL (65-115); Osmolality Calculated 283 mOsm/kg (285-295); Sodium 136 mmol/L (136-145)
[2024-12-07] MEDS: digoxin 125 mcg Tablet PO (08:28)
[2024-12-07] MEDS: ciprofloxacin 400 MG/200 ML PREMIX 200 MG IV (08:28)
[2024-12-07] MEDS: gabapentin 300 mg Capsule PO ×3 (08:28→20:36)
[2024-12-07] MEDS: sodium chloride 0.9% 1,000 ML 75 ML IV (08:28)
[2024-12-07] MEDS: vancomycin 125 mg Capsule PO ×4 (08:29→20:36)
[2024-12-07] MEDS: allopurinol 300 mg Tablet PO (08:29)
[2024-12-07] MEDS: HYDROMORPHONE HCL 0.5 MG/0.5 ML INJ 0.4 MG IVP (08:31)
--- NOTE | 2024-12-07 08:45 | P.PN_ITS ---
Subjective 2 Subjective: 69-year-old male who is admitted to the hospital with a small bowel obstruction. I am very well overnight, ostomy is productive of large amount of gas and stool. No abdominal pain. Vitals/I&O/Wt Last Vital Signs Temp 98.6 F 12/07/24 07:44 Pulse 88 12/07/24 08:28 Resp 18 12/07/24 07:44 BP 135/81 12/07/24 07:44 Pulse Ox 94 12/07/24 07:44 O2 Del Method Room Air 12/07/24 07:44 O2 Flow Rate 2 12/06/24 16:00 12/06/24 12/07/24 12/07/24 22:59 06:59 14:59 Intake Total 460 / 1760 1300 / 3060 Output Total 400 / 2975 275 / 3250 Balance 60 / -1215 1025 / -190 Weight last 48 hrs Weight 271 lb 14.4 oz Weight 269 lb 8 oz Physical Exam 2 GI: OTHER: Abdomen soft nontender nondistended ostomy is full of gas Data 12/07/24 03:20 12/07/24 03:20 A&P Assessment and plan (1) Small bowel obstruction: Plan Patient showing very good progression after Gastrografin trial. Ostomy is productive of gas and stool and no abdominal pain. Patient will be cleared from the surgical standpoint if he tolerates GI soft diet this morning. All other management per medical team PDMP PDMP Reviewed: Not Reviewed Attestations 2 Medical Necessity Statement*: Per medical team Coding Level of Care Code Acute Code for [facility] Diagnoses Small bowel obstruction K56.609
[2024-12-07] MEDS: fixodent 39 gm Tube 1 APPLIC DENTAL (09:07)
--- NOTE | 2024-12-07 09:29 | PC.SOCIAL ---
IMM Update Pg. 2 of IMM updated, copy provided at bedside.
--- NOTE | 2024-12-07 13:18 | PM.DCS ---
Discharge Providers Date of Admission: 12/04/24 13:16 Date of Discharge: December 07, 2024 Attending Provider at Admission: Blanco Carter MD Attending Provider at Discharge: Blanco Carter MD Primary Care Provider: Al Álvarez MD Diagnoses at Discharge Discharge Diagnosis (1) Small bowel obstruction: Status: Resolved Reason for Visit Reason for Visit: n/v Discharge Data Studies Completed and Pending Completed Studies During Hospitalization Category Date Time Status CT abdomen pelvis wo con [id number] Stat Cat Scan 12/04/24 12:26 Completed XR KUB portable [id number] Stat Exams 12/06/24 11:06 Completed XR abdomen 1V* [id number] Routine Exams 12/05/24 06:23 Completed XR chest 1V portable [id number] Stat Exams 12/04/24 16:34 Completed XR chest 1V portable [id number] Urgent Exams 12/04/24 10:06 Completed Pending at discharge Category Date Time Status Blood Culture Stat Lab 12/04/24 14:27 Results OVA and Parasites, Conc and PE Routine Lab 12/04/24 11:14 Received Salmonella / Shigella / Campy Routine Lab 12/04/24 11:14 Received Radiology Impressions Abdomen/Pelvis CT 12/04/24 12:26 IMPRESSION: 1. Development off a small bowel obstruction since 11/20/2024. Moderate small bowel obstruction in the proximal to mid jejunum. The distal small bowel is collapsed. Transition site is in the LEFT lower quadrant towards the midline. 2. Partial colectomy with RIGHT lower quadrant colostomy. 3. Patient has known metastatic disease in the liver. Difficult to quantify on this noncontrast study but probably progressed since the most recent studies. Chest X-Ray 12/04/24 16:34 IMPRESSION: Nasogastric tube extending into the stomach. Abdomen X-Ray 12/05/24 06:23 IMPRESSION: Nasogastric tube terminates in the mid gastric body. KUB X-Ray 12/06/24 11:06 IMPRESSION: No definitive evidence of high-grade small bowel obstruction. Stable positioning of nasogastric tube which is looped within the stomach. Laboratory Results WBC 5.74 10^3/uL (3.29-11.43) 12/07/24 03:20 RBC 3.71 10^6/uL (3.85-5.65) L 12/07/24 03:20 Hgb 12.00 g/dL (11.27-16.99) 12/07/24 03:20 Hct 40.0 % (37-53) 12/07/24 03:20 MCV 107.8 fl (82-101) H 12/07/24 03:20 MCH 32.3 pg (27-33) 12/07/24 03:20 MCHC 30.0 g/dL (30-55) 12/07/24 03:20 RDW 15.9 % (12.1-15.1) H 12/07/24 03:20 Plt Count 134 10^3/cmm (157-399) L 12/07/24 03:20 MPV 10.2 fL (7.4-10.4) 12/07/24 03:20 Neut % (Auto) 57.7 % 12/07/24 03:20 Lymph % (Auto) 24.9 % 12/07/24 03:20 [place] % (Auto) 12.7 % 12/07/24 03:20 Eos % (Auto) 3.7 % 12/07/24 03:20 Baso % (Auto) 0.7 % 12/07/24 03:20 Neut # (Auto) 3.31 10^3/uL (1.8-7.7) 12/07/24 03:20 Lymph # (Auto) 1.4 10^3/uL (0.8-4.8) 12/07/24 03:20 [place] # (Auto) 0.7 10^3/uL (0.2-0.9) 12/07/24 03:20 Eos # (Auto) 0.2 10^3/uL (0.0-0.8) 12/07/24 03:20 Baso # (Auto) 0.0 10^3/uL (0.0-0.1) 12/07/24 03:20 Nucleated RBC % (auto) 0 % 12/07/24 03:20 Nucleated RBCs # 0.0 /100WBC 12/07/24 03:20 Sodium 136 mmol/L (136-145) 12/07/24 03:20 Potassium 4.0 mmol/L (3.5-5.1) 12/07/24 03:20 Chloride 98 mmol/L (98-107) 12/07/24 03:20 Carbon Dioxide 27 mmol/L (22-29) 12/07/24 03:20 Anion Gap 15.0 (5-19) 12/07/24 03:20 BUN 17 mg/dL (8-23) 12/07/24 03:20 Creatinine 1.0 mg/dL (0.7-1.2) 12/07/24 03:20 GFR Calculation 74.1 mL/min (90-130) L 12/07/24 03:20 Glucose 91 mg/dL (65-115) 12/07/24 03:20 Estimat Average Glucose 126 12/04/24 10:40 Hemoglobin A1c 6.0 % (4.0-6.0) 12/04/24 10:40 Calculated Osmolality 283 mOsm/kg (285-295) L 12/07/24 03:20 Lactic Acid 4.6 mmol/L (0.5-2.2) H* 12/04/24 10:40 Lactic Acid (Sepsis) 2.0 mmol/L (0.5-2.2) 12/04/24 14:27 Calcium 9.0 mg/dL (8.5-10.5) 12/07/24 03:20 Total Bilirubin 0.8 mg/dL (0.15-1.2) 12/04/24 10:40 AST 17 U/L (0-40) 12/04/24 10:40 ALT 16 U/L (0-41) 12/04/24 10:40 Alkaline Phosphatase 67 U/L (40-130) 12/04/24 10:40 Troponin T Baseline 32 ng/L (0-15) H 12/04/24 10:40 Troponin T 120 Minute 28.74 ng/L (0-15) H 12/04/24 12:48 Delta Troponin T -3.26 ABS# (0-10) L 12/04/24 12:48 Troponin T Hi Sens 6Hr 25.50 ng/L (0-15) H 12/04/24 17:12 Troponin T Hi Sens 6Hr Delta -6.50 ng/L (0-12) L 12/04/24 17:12 C-Reactive Protein 33.9 mg/L (0.0-4.9) H 12/04/24 10:40 NT-Pro-B Natriuret Pep 308 pg/mL (0-125) H 12/04/24 10:40 Total Protein 6.9 g/dL (6.6-8.7) 12/04/24 10:40 Albumin 4.1 g/dL (3.5-5.2) 12/04/24 10:40 Globulin 2.8 g/dL (1.3-4.6) 12/04/24 10:40 Triglycerides 266 mg/dL (0-150) H 12/04/24 10:40 Cholesterol 206 mg/dL (0-200) H 12/04/24 10:40 LDL Cholesterol, Calc 119 mg/dL (50-129) 12/04/24 10:40 HDL Cholesterol 34 mg/dL (60-100) L 12/04/24 10:40 LDL/HDL Ratio 3.50 RATIO (0.00-3.22) H 12/04/24 10:40 Cholesterol/HDL Ratio 6.06 mg/dL (1.0-5.00) H 12/04/24 10:40 Lipase 46 U/L (13-60) 12/04/24 10:40 Procalcitonin 0.19 ng/mL (0-0.5) 12/04/24 10:40 TSH 2.34 uIU/mL (0.27-4.20) 12/04/24 10:40 Urine Color Dark yellow (Yellow) A 12/04/24 11:14 Urine Appearance Clear (CLEAR) 12/04/24 11:14 Urine pH 8.0 (5-7) A 12/04/24 11:14 Ur Specific [place] 1.031 (1.005-1.030) H 12/04/24 11:14 Urine Protein 3+ (Negative) A 12/04/24 11:14 Urine Glucose (UA) Negative (Normal) 12/04/24 11:14 Urine Ketones 1+ (Negative) H 12/04/24 11:14 Urine Blood Negative (Negative) 12/04/24 11:14 Urine Nitrate Negative (Negative) 12/04/24 11:14 Urine Bilirubin 1+ (Negative) H 12/04/24 11:14 Urine Urobilinogen 1.0 mg/dL (Negative) 12/04/24 11:14 Ur Leukocyte Esterase Trace (Negative) A 12/04/24 11:14 Urine RBC 6-10 /hpf (0-2) 12/04/24 11:14 Urine WBC 0-5 /hpf (0-5) 12/04/24 11:14 Ur Squamous Epith Cells 0-5 /hpf (0-5) 12/04/24 11:14 Amorphous Sediment Not Reportable 12/04/24 11:14 Urine Bacteria None seen /hpf (NONE) 12/04/24 11:14 Hyaline Casts 25.23 /lpf 12/04/24 11:14 Fine Granular Casts 0-4 /lpf H 12/04/24 11:14 Digoxin 0.3 ng/mL (0.6-1.2) L 12/04/24 10:40 C. difficile (PCR) Negative (Negative) 12/06/24 05:28 CMV IgG Ab <0.60 U/mL 12/04/24 10:40 CMV IgM Ab <30.00 AU/mL 12/04/24 10:40 Influenza A (PCR) Negative (Negative) 12/04/24 14:30 Influenza Type B (PCR) Negative (Negative) 12/04/24 14:30 RSV (PCR) Negative (Negative) 12/04/24 14:30 SARS-CoV-2 (PCR) Negative (Negative) 12/04/24 14:30 Vitals Last Vital Signs Temp 98.7 F 12/07/24 12:00 Pulse 93 12/07/24 12:00 Resp 14 12/07/24 12:00 BP 107/63 12/07/24 12:00 Pulse Ox 95 12/07/24 12:00 O2 Del Method Nasal Cannula 12/07/24 12:00 O2 Flow Rate 2 12/07/24 12:00 Discharge Plan Discharge Patient Disposition: Home Condition: Stable Prescriptions: New vancomycin 125 mg Capsule 125 mg PO QID 10 Days Qty: 40 0RF Xarelto 20 mg tablet 20 mg PO QPM 30 Days Qty: 30 0RF Rx Instructions: must administer with evening meal Continued allopurinol 300 mg tablet 300 mg PO DAILY resveratrol 250 mg capsule 250 mg PO QPM saw palmetto 500 mg capsule 500 mg PO DAILY lovastatin 40 mg tablet 40 mg PO BEDTIME acetaminophen 500 mg Tablet 500 mg PO Q6H PRN (Reason: Pain) trazodone 150 mg tablet 300 mg PO BEDTIME gabapentin 300 mg capsule 300 mg PO TID testosterone 1.62 % (40.5 mg/2.5 gram) gel in packet 1 packet topical DAILY digoxin 125 mcg (0.125 mg) tablet 0.125 mg PO DAILY furosemide 20 mg tablet 20 mg PO DAILY epinephrine 0.3 mg/0.3 mL auto-injector See Rx Instructions .ROUTE .COMPLEX Rx Instructions: INJECT CONTENTS OF 1 PEN NEEDED FOR ALLERGIC REACTION albuterol sulfate 90 mcg/actuation HFA aerosol inhaler 2 puff INHALATION Q4H PRN (Reason: Shortness Of Breath) oxycodone 10 mg tablet 10 mg PO Q6H PRN (Reason: Pain) Changed metoprolol tartrate 25 mg tablet 50 mg PO Q12H 30 Days Qty: 180 3RF Held vancomycin 125 mg capsule 125 mg PO DAILY Hold Instructions: Resume on 12/17/24. Discharge Orders: Discharge Order (Routine); Ordered 12/07/24 Ordered By: Blanco Carter Referrals: Al Álvarez MD [Primary Care Provider] - 12/11/24 2:10 pm () Raiza Orourke MD [Physician] - 4-7 days Discharge Diet: GI Soft Discharge Activity: Resume usual activity Patient Instructions: Opioid Safety Activity Restrictions/Additional Instructions: - Please adhere to a GI soft diet ? If any recurrent abdominal pain please go to the emergency room ? Continue vancomycin 125 4 times daily for 10 days then resume your daily dose ? Metoprolol has been increased to 50 mg twice daily ? Please follow-up with cardiology # Encourage for you to use your Xarelto, monitor for bloody or black stools Coding Level of Care Code Acute Code for Chg Fwd Diagnoses Small bowel obstruction K56.609
--- NOTE | 2024-12-07 13:39 | PM.MISC ---
Miscellaneous Note Purpose of Documentation: Update on patient care Note: Patient resting comfortably in bed, tolerated breakfast with no issues no abdominal pain and ostomy is working. He is cleared for discharge from the surgical standpoint.
[2024-12-07] MEDS: FUROsemide 10 mg/mL SDV 4mL 40 MG IVP (14:06)
--- NOTE | 2024-12-07 14:16 | PC.NURSE ---
Addendum entered by Tessy Machado RN 12/07/24 16:23: Provider is updated with Mr Voss I got him up again and he just stood up at his bedside. He is dizzy and felt he just couldn't walk to the door this time. His HR jumped to 124. His O2 does drop to 86-88% with exercise and sleeping (but he refuses O2). Original Note: Provider is updated on Mr Voss, he walked again to his room door and back. He gets very dizzy. His HR jumped to 124 then down to 80's after sitting back down. Provider asked to walk him again around 1600.
--- NOTE | 2024-12-07 15:02 | P.PN_ITS ---
Subjective 2 Subjective: - Patient was seen this morning, denies any nausea, no vomiting, no abdominal pain, he is having gas and stool output from his colostomy, he did well with the Gastrografin yesterday, he has been tolerating a diet well -We discussed possible discharge plan to day, his heart rates are in the 90s at rest, we will see how he feels when ambulating -When ambulating outpatient his heart ra fernando increased to the 130s, A-fib, improved to 110s upon rest -Patient was given another 25 mg of p.o. metoprolol -He was ambulated again at about 1 PM, h eart rates also increase upon ambulation, patient feels dizzy, -Plan on taking him off digoxin and swit la to amiodarone drip for his A-fib, monitoring for 24 hours -We also discussed anticoagulation with patient, he does have Xarelto at home, but has not taken it, due to concerns of bleeding, discussed risk and benefits of Xarelto, benefits including but limited to decrease the risk of stroke, hypercoagulable signs, risk include bleeding, after discussing risk benefits, he voiced understanding, all questions answered, he is not ready to make a decision as of yet Vitals/I&O/Wt Last Vital Signs Temp 98.7 F 12/07/24 12:00 Pulse 93 12/07/24 12:00 Resp 14 12/07/24 12:00 BP 107/63 12/07/24 12:00 Pulse Ox 95 12/07/24 12:00 O2 Del Method Nasal Cannula 12/07/24 12:00 O2 Flow Rate 2 12/07/24 12:00 12/07/24 12/07/24 12/07/24 06:59 14:59 22:59 Intake Total 1300 / 3060 360 / 360 Output Total 275 / 3250 Balance 1025 / -190 360 / 360 Weight last 48 hrs Weight 123.332 kg Weight 122.243 kg Physical Exam 2 Const: COMMON NORMALS: no acute distress and patient oriented x3 Resp: COMMON NORMALS: normal respiratory effort, No retractions, No use of accessory muscles and clear to auscultation bilaterally AUSCULTATION: clear to auscultation bilaterally Cardio: COMMON NORMALS: regular rate, S1 normal heart sound present and S2 normal heart sound present RATE: regular rate RHYTHM: abnormal rhythm irregularly irregular HEART SOUNDS: S1 normal heart sound present and S2 normal heart sound present GI: COMMON NORMALS: Normal to inspection, nondistended, normoactive bowel sounds present and non-tender OTHER: Colostomy in place, gases in bag Extremity: COMMON NORMALS: no pedal edema Neuro: COMMON NORMALS: patient oriented x3 Psych: COMMON NORMALS: mental status grossly normal Data 12/07/24 03:20 12/07/24 03:20 A&P Assessment and plan (1) Acute kidney injury: (2) Atrial fibrillation: (3) Clostridium difficile colitis: (4) Diarrhea: (5) Small bowel obstruction: Plan Acute kidney injury, likely secondary to dehydration, IV fluids discontinued Atrial fibrillation with rapid ventricular response ? Metroprolol increased to 50 twice daily -Continues to have A-fib with RVR with exertion start amiodarone drip -Stop digoxin ? Patient declines anticoagulant therapy due to his risk of developing bruising, has not taken it for the last 3 months, but will reconsider, is not ready to make a decision Small bowel obstruction -CT scan CT/CT abdomen pelvis wo con [id number] IMPRESSION: 1. Development off a small bowel obstruction since 11/20/2024. Moderate small bowel obstruction in the proximal to mid jejunum. The distal small bowel is collapsed. Transition site is in the LEFT lower quadrant towards the midline. 2. Partial colectomy with RIGHT lower quadrant colostomy. 3. Patient has known metastatic disease in the liver. Difficult to quantify on this noncontrast study but probably progressed since the most recent studies -Gastrografin trial yesterday, ostomy is productive of gas and stool Plan -On GI soft diet -Serial abdominal exams -General Surgery on consult Diarrhea ? Concern for C. difficile colitis, PCR is negative ? 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 vancomycin at therapeutic dose -Await stool studies ? CMV studies UTI, completed antibiotics History of colon cancer, on chemotherapy, isolation precautions Full code # Lovenox for DVT prophylaxis Plan for today amiodarone drip, PT OT, serial abdominal exams PDMP PDMP Reviewed: Not Reviewed Attestations 2 Medical Necessity Statement*: Patient requires hospitalization for atrial fibrillation with rapid ventricular response, Diagnoses Acute kidney injury N17.9 Atrial fibrillation I48.91 Clostridium difficile colitis A04.72 Diarrhea R19.7 Small bowel obstruction K56.609
[2024-12-07] MEDS: enoxaparin 40 mg/0.4 mL Syringe SUBCUT (15:27)
--- NOTE | 2024-12-07 18:07 | PC.NURSE ---
Provider is updated that Patient refused his metoprolol 50mg at 1800. His last 4 BP's were 87/64, 85/63 machine and 120/70 and 104/66 manually. Provider said okay to hold for now.
[2024-12-07] MEDS: atorvastatin 40 mg Tablet 20 MG PO (20:36)
[2024-12-07] MEDS: trazodone 150 mg Tablet 300 MG PO (20:36)
--- NOTE | 2024-12-07 20:52 | PC.NURSE ---
2051- Called Dr. Collier to clarify amiodarone order. Patient was dizzy this afternoon and discharge was postponed. Per to start amiodarone.
[2024-12-08] VITALS (15 sets, daily range): BP systolic 116–165; BP diastolic 69–98; PULSE 70–107; RESP 16–116; TEMP 36.5–36.9; O2SAT 80–100
[2024-12-08] MEDS: oxyCODONE 5 mg IR Tab/Cap 10 MG PO ×3 (03:00→09:45)
[2024-12-08] MEDS: pantoprazole 40 mg SDV IVP (03:00)
[2024-12-08] MEDS: metoprolol tartrate 25 mg Tablet 50 MG PO (05:00)
[2024-12-08] MEDS: amiodarone 200 mg Tablet 400 MG PO (09:47)
[2024-12-08] MEDS: gabapentin 300 mg Capsule PO (09:47)
[2024-12-08] MEDS: allopurinol 300 mg Tablet PO (09:48)
[2024-12-08] MEDS: vancomycin 125 mg Capsule PO (09:48)
--- NOTE | 2024-12-08 10:37 | P.DS_ITS ---
Discharge Providers Date of Admission: 12/04/24 13:16 Date of Discharge: December 08, 2024 Attending Provider at Admission: Blanco Carter MD Attending Provider at Discharge: Gilberto Hernández Primary Care Provider: Al Álvarez MD Diagnoses at Discharge Discharge Diagnosis (1) Acute kidney injury: Status: Resolved (2) Atrial fibrillation: Status: Inactive (3) Clostridium difficile colitis: Status: Inactive (4) Diarrhea: Status: Resolved (5) Small bowel obstruction: Status: Resolved Reason for Visit Reason for Visit: n/v Hospital Course Hospital Course 69-year-old gentleman with history of colon cancer, colostomy, came in with abdominal pain and lack of stoma output. Denies having had any diarrhea. With history of C. difficile colitis was transiently empirically treated with vancomycin. C. difficile tested in the hospital was negative. He was seen by general surgery due to bowel obstruction which was managed conservatively including barium enema with therapeutic result, subsequently with resumption of gas and output. During hospitalization additional managed for atrial fibrillation with RVR. Metoprolol dose was increased to 50 mg twice daily and due to persistent A-fib with RVR was started on amiodarone drip, transition to oral amiodarone at discharge. He is asked to follow-up with cardiology for reassessment and consideration of alternatives to amiodarone therapy. While on amiodarone please monitor eyes, thyroid, lungs, liver for any possible associated adverse effects from amiodarone as per discussion with him. Please revisit with him also regarding stroke risk reduction with atrial fibrillation with anticoagulation. He stopped taking Xarelto over the last 3 months due to the bruising. Physical Exam Const: COMMON NORMALS: patient oriented x3 and alert GENERAL APPEARANCE: cooperative ORIENTATION/CONSCIOUSNESS: Yes awake HENMT: COMMON NORMALS: oropharynx normal Neck/C-Spine: COMMON NORMALS: no JVD Resp: COMMON NORMALS: normal respiratory effort and clear to auscultation bilaterally AUSCULTATION: clear to auscultation bilaterally Cardio: COMMON NORMALS: no JVD, regular rhythm, S1 normal heart sound present, S2 normal heart sound present and No murmurs present (Cardio) RHYTHM: regular rhythm HEART SOUNDS: S1 normal heart sound present and S2 normal heart sound present GI: COMMON NORMALS: Normal to inspection, nondistended, normoactive bowel sounds present, Soft to palpation and non-tender PALPATION: Yes Soft to palpation OTHER: Right lower quadrant colostomy Extremity: COMMON NORMALS: no joint enlargement and no pedal edema Neuro: COMMON NORMALS: patient oriented x3 and moves all extremities SENSORIUM/ORIENTATION: Yes alert Skin: COMMON NORMALS: no rashes or lesions noted GENERAL SKIN EXAM: no rashes or lesions noted Discharge Data Studies Completed and Pending Completed Studies During Hospitalization Category Date Time Status CT abdomen pelvis wo con [id number] Stat Cat Scan 12/04/24 12:26 Completed XR KUB portable [id number] Stat Exams 12/06/24 11:06 Completed XR abdomen 1V* [id number] Routine Exams 12/05/24 06:23 Completed XR chest 1V portable [id number] Stat Exams 12/04/24 16:34 Completed XR chest 1V portable [id number] Urgent Exams 12/04/24 10:06 Completed Pending at discharge Category Date Time Status Blood Culture Stat Lab 12/04/24 14:27 Results OVA and Parasites, Conc and PE Routine Lab 12/04/24 11:14 Received Salmonella / Shigella / Campy Routine Lab 12/04/24 11:14 Received Radiology Impressions Abdomen/Pelvis CT 12/04/24 12:26 IMPRESSION: 1. Development off a small bowel obstruction since 11/20/2024. Moderate small bowel obstruction in the proximal to mid jejunum. The distal small bowel is collapsed. Transition site is in the LEFT lower quadrant towards the midline. 2. Partial colectomy with RIGHT lower quadrant colostomy. 3. Patient has known metastatic disease in the liver. Difficult to quantify on this noncontrast study but probably progressed since the most recent studies. Chest X-Ray 12/04/24 16:34 IMPRESSION: Nasogastric tube extending into the stomach. Abdomen X-Ray 12/05/24 06:23 IMPRESSION: Nasogastric tube terminates in the mid gastric body. KUB X-Ray 12/06/24 11:06 IMPRESSION: No definitive evidence of high-grade small bowel obstruction. Stable positioning of nasogastric tube which is looped within the stomach. Laboratory Results WBC 5.74 10^3/uL (3.29-11.43) 12/07/24 03:20 RBC 3.71 10^6/uL (3.85-5.65) L 12/07/24 03:20 Hgb 12.00 g/dL (11.27-16.99) 12/07/24 03:20 Hct 40.0 % (37-53) 12/07/24 03:20 MCV 107.8 fl (82-101) H 12/07/24 03:20 MCH 32.3 pg (27-33) 12/07/24 03:20 MCHC 30.0 g/dL (30-55) 12/07/24 03:20 RDW 15.9 % (12.1-15.1) H 12/07/24 03:20 Plt Count 134 10^3/cmm (157-399) L 12/07/24 03:20 MPV 10.2 fL (7.4-10.4) 12/07/24 03:20 Neut % (Auto) 57.7 % 12/07/24 03:20 Lymph % (Auto) 24.9 % 12/07/24 03:20 [place] % (Auto) 12.7 % 12/07/24 03:20 Eos % (Auto) 3.7 % 12/07/24 03:20 Baso % (Auto) 0.7 % 12/07/24 03:20 Neut # (Auto) 3.31 10^3/uL (1.8-7.7) 12/07/24 03:20 Lymph # (Auto) 1.4 10^3/uL (0.8-4.8) 12/07/24 03:20 [place] # (Auto) 0.7 10^3/uL (0.2-0.9) 12/07/24 03:20 Eos # (Auto) 0.2 10^3/uL (0.0-0.8) 12/07/24 03:20 Baso # (Auto) 0.0 10^3/uL (0.0-0.1) 12/07/24 03:20 Nucleated RBC % (auto) 0 % 12/07/24 03:20 Nucleated RBCs # 0.0 /100WBC 12/07/24 03:20 Sodium 136 mmol/L (136-145) 12/07/24 03:20 Potassium 4.0 mmol/L (3.5-5.1) 12/07/24 03:20 Chloride 98 mmol/L (98-107) 12/07/24 03:20 Carbon Dioxide 27 mmol/L (22-29) 12/07/24 03:20 Anion Gap 15.0 (5-19) 12/07/24 03:20 BUN 17 mg/dL (8-23) 12/07/24 03:20 Creatinine 1.0 mg/dL (0.7-1.2) 12/07/24 03:20 GFR Calculation 74.1 mL/min (90-130) L 12/07/24 03:20 Glucose 91 mg/dL (65-115) 12/07/24 03:20 Estimat Average Glucose 126 12/04/24 10:40 Hemoglobin A1c 6.0 % (4.0-6.0) 12/04/24 10:40 Calculated Osmolality 283 mOsm/kg (285-295) L 12/07/24 03:20 Lactic Acid 4.6 mmol/L (0.5-2.2) H* 12/04/24 10:40 Lactic Acid (Sepsis) 2.0 mmol/L (0.5-2.2) 12/04/24 14:27 Calcium 9.0 mg/dL (8.5-10.5) 12/07/24 03:20 Total Bilirubin 0.8 mg/dL (0.15-1.2) 12/04/24 10:40 AST 17 U/L (0-40) 12/04/24 10:40 ALT 16 U/L (0-41) 12/04/24 10:40 Alkaline Phosphatase 67 U/L (40-130) 12/04/24 10:40 Troponin T Baseline 32 ng/L (0-15) H 12/04/24 10:40 Troponin T 120 Minute 28.74 ng/L (0-15) H 12/04/24 12:48 Delta Troponin T -3.26 ABS# (0-10) L 12/04/24 12:48 Troponin T Hi Sens 6Hr 25.50 ng/L (0-15) H 12/04/24 17:12 Troponin T Hi Sens 6Hr Delta -6.50 ng/L (0-12) L 12/04/24 17:12 C-Reactive Protein 33.9 mg/L (0.0-4.9) H 12/04/24 10:40 NT-Pro-B Natriuret Pep 308 pg/mL (0-125) H 12/04/24 10:40 Total Protein 6.9 g/dL (6.6-8.7) 12/04/24 10:40 Albumin 4.1 g/dL (3.5-5.2) 12/04/24 10:40 Globulin 2.8 g/dL (1.3-4.6) 12/04/24 10:40 Triglycerides 266 mg/dL (0-150) H 12/04/24 10:40 Cholesterol 206 mg/dL (0-200) H 12/04/24 10:40 LDL Cholesterol, Calc 119 mg/dL (50-129) 12/04/24 10:40 HDL Cholesterol 34 mg/dL (60-100) L 12/04/24 10:40 LDL/HDL Ratio 3.50 RATIO (0.00-3.22) H 12/04/24 10:40 Cholesterol/HDL Ratio 6.06 mg/dL (1.0-5.00) H 12/04/24 10:40 Lipase 46 U/L (13-60) 12/04/24 10:40 Procalcitonin 0.19 ng/mL (0-0.5) 12/04/24 10:40 TSH 2.34 uIU/mL (0.27-4.20) 12/04/24 10:40 Urine Color Dark yellow (Yellow) A 12/04/24 11:14 Urine Appearance Clear (CLEAR) 12/04/24 11:14 Urine pH 8.0 (5-7) A 12/04/24 11:14 Ur Specific [place] 1.031 (1.005-1.030) H 12/04/24 11:14 Urine Protein 3+ (Negative) A 12/04/24 11:14 Urine Glucose (UA) Negative (Normal) 12/04/24 11:14 Urine Ketones 1+ (Negative) H 12/04/24 11:14 Urine Blood Negative (Negative) 12/04/24 11:14 Urine Nitrate Negative (Negative) 12/04/24 11:14 Urine Bilirubin 1+ (Negative) H 12/04/24 11:14 Urine Urobilinogen 1.0 mg/dL (Negative) 12/04/24 11:14 Ur Leukocyte Esterase Trace (Negative) A 12/04/24 11:14 Urine RBC 6-10 /hpf (0-2) 12/04/24 11:14 Urine WBC 0-5 /hpf (0-5) 12/04/24 11:14 Ur Squamous Epith Cells 0-5 /hpf (0-5) 12/04/24 11:14 Amorphous Sediment Not Reportable 12/04/24 11:14 Urine Bacteria None seen /hpf (NONE) 12/04/24 11:14 Hyaline Casts 25.23 /lpf 12/04/24 11:14 Fine Granular Casts 0-4 /lpf H 12/04/24 11:14 Digoxin 0.3 ng/mL (0.6-1.2) L 12/04/24 10:40 C. difficile (PCR) Negative (Negative) 12/06/24 05:28 CMV IgG Ab <0.60 U/mL 12/04/24 10:40 CMV IgM Ab <30.00 AU/mL 12/04/24 10:40 Influenza A (PCR) Negative (Negative) 12/04/24 14:30 Influenza Type B (PCR) Negative (Negative) 12/04/24 14:30 RSV (PCR) Negative (Negative) 12/04/24 14:30 SARS-CoV-2 (PCR) Negative (Negative) 12/04/24 14:30 Vitals Last Vital Signs Temp 98.4 F 12/08/24 07:49 Pulse 74 12/08/24 07:49 Resp 18 12/08/24 09:45 BP 132/79 12/08/24 07:49 Pulse Ox 96 12/08/24 07:49 O2 Del Method Room Air 12/08/24 07:49 O2 Flow Rate 2 12/07/24 12:00 Discharge Plan Discharge Patient Disposition: Home Condition: Stable Prescriptions: New vancomycin 125 mg Capsule 125 mg PO QID 10 Days Qty: 40 0RF Xarelto 20 mg tablet 20 mg PO QPM 30 Days Qty: 30 0RF Rx Instructions: must administer with evening meal amiodarone [Pacerone] 200 mg Tablet See Rx Instructions .ROUTE .COMPLEX Qty: 90 0RF Rx Instructions: 400mg twice daily for 7 days, then 200mg twice daily Continued allopurinol 300 mg tablet 300 mg PO DAILY resveratrol 250 mg capsule 250 mg PO QPM saw palmetto 500 mg capsule 500 mg PO DAILY lovastatin 40 mg tablet 40 mg PO BEDTIME acetaminophen 500 mg Tablet 500 mg PO Q6H PRN (Reason: Pain) trazodone 150 mg tablet 300 mg PO BEDTIME gabapentin 300 mg capsule 300 mg PO TID testosterone 1.62 % (40.5 mg/2.5 gram) gel in packet 1 packet topical DAILY digoxin 125 mcg (0.125 mg) tablet 0.125 mg PO DAILY furosemide 20 mg tablet 20 mg PO DAILY epinephrine 0.3 mg/0.3 mL auto-injector See Rx Instructions .ROUTE .COMPLEX Rx Instructions: INJECT CONTENTS OF 1 PEN NEEDED FOR ALLERGIC REACTION albuterol sulfate 90 mcg/actuation HFA aerosol inhaler 2 puff INHALATION Q4H PRN (Reason: Shortness Of Breath) oxycodone 10 mg tablet 10 mg PO Q6H PRN (Reason: Pain) Changed metoprolol tartrate 25 mg tablet 50 mg PO Q12H 30 Days Qty: 180 3RF Held vancomycin 125 mg capsule 125 mg PO DAILY Hold Instructions: Resume on 12/17/24. Discharge Orders: Discharge Order (Routine); Ordered 12/07/24 Ordered By: Blanco Carter Referrals: Al Álvarez MD [Primary Care Provider] - 12/11/24 2:10 pm () Raiza Orourke MD [Physician] - 4-7 days (We have notified your physician's clinic of the need for a follow-up appointment to be scheduled. If you have not heard from them within the next 2 business days, please call them directly. ) Discharge Diet: GI Soft Discharge Activity: Resume usual activity Patient Instructions: Vancomycin (By mouth), Rivaroxaban (By mouth) (Xarelto, Xarelto Starter Pack), A-fib (Atrial Fibrillation) (DC), Acute Kidney Injury (DC), Bowel Obstruction (DC), Opioid Safety Activity Restrictions/Additional Instructions: - Please adhere to a GI soft diet ? If any recurrent abdominal pain please go to the emergency room ? Continue vancomycin 125 4 times daily for 10 days then resume your daily dose ? Metoprolol has been increased to 50 mg twice daily ? Please follow-up with cardiology # Encourage for you to use your Xarelto, monitor for bloody or black stools Follow-up with cardiology as discussed to consider alternatives to amiodarone. While on amiodarone have your primary provider follow-up your thyroid function, monitor for any changes in your lungs, liver function, as well as your eyes with risk of complications with amiodarone as discussed. Discharge Attestations Time Spent in Discharge Care*: greater than 30 min Quality Metrics Clinical Quality Measures [ No reported AMI, CVA or VTE this stay] Coding Level of Care Code 34243 Total time (in minutes) for Discharge: 40 Diagnoses Acute kidney injury N17.9 Atrial fibrillation I48.91 Clostridium difficile colitis A04.72 Diarrhea R19.7 Small bowel obstruction K56.609
== END 2024-12-08 13:22 | disposition home or self-care (01) | DRG 389 ==
LOC: ER 12:24 → CSU 13:17
PROVIDERS: Admitting Provider Family Medicine; Emergency Provider Physician Assistant; PCP Family Medicine; Visit Provider Internal Medicine
DX: K56.0 Paralytic ileus (principal); C78.7 Secondary malignant neoplasm of liver and intrahepatic bile duct; I48.19 Other persistent atrial fibrillation; N17.9 Acute kidney failure, unspecified; N39.0 Urinary tract infection, site not specified; E86.0 Dehydration; I10 Essential (primary) hypertension; M10.9 Gout, unspecified; E78.5 Hyperlipidemia, unspecified; G47.33 Obstructive sleep apnea (adult) (pediatric); J45.909 Unspecified asthma, uncomplicated; Z87.891 Personal history of nicotine dependence; Z85.038 Personal history of other malignant neoplasm of large intestine; Z93.3 Colostomy status; Z86.19 Personal history of other infectious and parasitic diseases; Z90.49 Acquired absence of other specified parts of digestive tract
CPT/HCPCS: 36415; 71045; 74018; 74176; 80048; 80053; 80061; 80162; 81001; 82274; 83036; 83605; 83630; 83690; 83880; 84145; 84443; 84484; 85025; 86140; 87040; 87045; 87177; 87209; 87427; 87449; 87493; 87637; 93005; 94664; 96365; 96366; 96367; 96372; 96375; 96376; 97161; 97165; 99285; A9270; J0283; J0744; J1171; J1650; J1940; J2405; J2470; J2765; J3490; J7030; J7040; J9999

== ENCOUNTER → 2024-12-14 10:46 | Outpatient (BNVA) | payer MEDICARE, SELFPAY | PROVIDERS: PCP Family Medicine; Visit Provider Internal Medicine Cardiovascular Disease | DX: L85.8 Other specified epidermal thickening (principal); L81.4 Other melanin hyperpigmentation; L57.8 Other skin changes due to chronic exposure to nonionizing radiation; L72.0 Epidermal cyst; L82.1 Other seborrheic keratosis; D22.5 Melanocytic nevi of trunk; L90.5 Scar conditions and fibrosis of skin; D17.1 Benign lipomatous neoplasm of skin and subcutaneous tissue of trunk; D17.21 Benign lipomatous neoplasm of skin and subcutaneous tissue of right arm; Z87.2 Personal history of diseases of the skin and subcutaneous tissue; I51.7 Cardiomegaly; I95.9 Hypotension, unspecified; I48.11 Longstanding persistent atrial fibrillation; E78.5 Hyperlipidemia, unspecified; C18.9 Malignant neoplasm of colon, unspecified; C78.7 Secondary malignant neoplasm of liver and intrahepatic bile duct | CPT/HCPCS: 99203; 99214 ==

== ENCOUNTER → 2024-12-17 14:48 | Outpatient (BNVA) | payer MEDICARE, SELFPAY | PROVIDERS: PCP Family Medicine; Visit Provider Internal Medicine Cardiovascular Disease | DX: I48.92 Unspecified atrial flutter (principal); I48.91 Unspecified atrial fibrillation; I51.7 Cardiomegaly; I49.3 Ventricular premature depolarization | CPT/HCPCS: 93225 ==

== ENCOUNTER 2025-01-14 06:40 | Outpatient (CLI) | payer MEDICARE, SELFPAY ==
--- NOTE | 2025-01-14 07:00 | USCV_ITS ---
Charan Voss Age: 69 Gender: M : 1955 Exam Date: 01/14/2025 06:48 Ordering Phys: Raiza Orourke MD ([email or web address]) Technologist: [place] [facility] [place]: [place] BP: 90 / 50 HR: 101 Rhythm: Sinus Technical Quality: Adequate MEASUREMENTS (Male / Female) Normal Values 2D ECHO LV Diastolic Diameter PLAX 3.2 cm 4.2 - 5.9 / 3.9 - 5.3 cm IVS Diastolic Thickness 2.3 cm 0.6 - 1.0 / 0.6 - 0.9 cm IVS Systolic Thickness 2.7 cm LVPW Diastolic Thickness 1.5 cm 0.6 - 1.0 / 0.6 - 0.9 cm LVPW Systolic Thickness 1.8 cm LVOT Diameter 2.0 cm LV Ejection Fraction 2D Teich 71.5 % LV Ejection Fraction MOD 4C 54.2 % LV Ejection Fraction MOD 2C 53.9 % LV Ejection Fraction 2C AL 54.7 % LA Diameter 3.7 cm RA Systolic Volume 4C AL 78.7 ml RA Systolic Volume 4C MOD 78.3 ml Aorta at Sinotubular Diameter 3.1 cm M-MODE LA Ao Ratio MM 1.2 AV Cusp Separation MM 2.7 cm DOPPLER AV Peak Velocity 107.0 cm/s LVOT Peak Velocity 87.0 cm/s AV Area Cont Eq vti 2.4 cm squared AV Area Cont Eq pk 2.6 cm squared MV Peak Velocity 72.0 cm/s MV Area PHT 6.8 cm squared Mitral E to A Ratio 1.3 TV Peak Velocity 160.5 cm/s TR Peak Velocity 162.0 cm/s TR Peak Gradient 10.5 mmHg TV Peak E Velocity 91.0 cm/s PV Peak Velocity 120.0 cm/s FINDINGS Left Ventricle Normal left ventricular size and systolic function, EF 60% (visual). No regional wall motion abnormalities. Mild left ventricular hypertrophy. Right Ventricle The right ventricle is normal in size and function. Right Atrium Moderately increased right atrial size. Left Atrium Moderately increased left atrial size. Mitral Valve Thickened mitral valve. Moderate mitral annular calcification. Aortic Valve Thickened aortic valve. Tricuspid Valve No gross abnormalities noted Pulmonic Valve Pulmonic valve not well visualized. Pericardium Normal pericardium without effusion. Aorta Aortic root, at the level of the sinuses, measured 4.16 cm IVC Inferior vena cava not visualized. CONCLUSIONS Normal left ventricular size and systolic function, EF 60% (visual). No regional wall motion abnormalities. Mild left ventricular hypertrophy. Moderate biatrial enlargement Thickened mitral valve. Moderate mitral annular calcification. There is no pericardial effusion. Inferior vena cava not visualized. The aorta measured 4.16 cm at the level of the sinuses-mildly dilated aortic root. Compared to the previous study from 02/10/2024, there may be significant change. Dr Raiza Orourke MD [facility] (Electronically Signed) Final Date: 17 January 2025 20:59 S
== END 2025-01-14 06:41 | disposition home or self-care (01) ==
PROVIDERS: PCP Family Medicine; Visit Provider Internal Medicine Cardiovascular Disease
DX: R06.09 Other forms of dyspnea (principal); I51.7 Cardiomegaly; I35.8 Other nonrheumatic aortic valve disorders; I34.81 Nonrheumatic mitral (valve) annulus calcification; R93.1 Abnormal findings on diagnostic imaging of heart and coronary circulation
CPT/HCPCS: 93306

== ENCOUNTER 2025-02-09 13:47 | Inpatient (IN) | payer MEDICARE, SELFPAY ==
--- OUTSIDE RECORDS SUMMARY | 2024-11-05 09:57 | XMS_ITS ---
Author Organization [facility] Address [address] [place] [address] Care Team Providers Care Account Development Manager Name Role Phone Kady Floyd Primary Care Provider Bala Wilson Unavailable [phone] KADY FLOYD Unavailable Unavailable Miki Johnston Unavailable [phone] Encounters Encounter Location Date Provider Diagnosis [facility] [address] [facility] [address] [place] [address] 11/05/2024 Miki Johnston Testicular hypofunction E29.1 Assessments Encounter Date Diagnosis (ICD Code) Assessment Notes Treatment Notes Treatment Clinical Notes Section Notes 11/05/2024 Testicular hypofunction (ICD-10 - E29.1) Plan Of Treatment Future Test Test Name Order Date CBC w\ Auto Diff 48515 03/30/2025 Comprehensive Metabolic Panel (CMP) 8005 3 03/30/2025 Estradiol Level 12864 03/30/2025 PSA Diagnostic--[id number] 03/30/2025 Testosterone Total 66192 03/30/2025 Next Appt Details Provider Name:Tonya Silverman, 05/05/2025 02:00:00 PM, [address], [place], [address], Progress Notes * Charan KAMARA TDOB:1955 (69 yo M)Acc No.[id number]:11/05/2024 Patient: Charan ENGEL :1955 A ge:69 Y S ex:Male Address:[address] [place] [address] Subjective: * Chief Complaints: * * Medical History: * Surgical History: * Hospitalization/Major Diagno stic Procedure: * Medications: Objective: * Vitals: * Physical Examination: Assessment: * Assessment: 1. T esticular hypofunction - E29.1 Plan: * Treatment: * Procedure Codes: * true * Date: Generated for Man palacios/Yony/Flaquito on: 0 02/09/2025 07:10 PM CDT
--- OUTSIDE RECORDS SUMMARY | 2024-11-27 04:09 | XMS_ITS ---
Author Organization [facility] Address [address] [place] [address] Care Team Providers Care Plastics Scientist Name Role Phone Kady Floyd Primary Care Provider Bala Wilson Unavailable [phone] KADY FLOYD Unavailable Unavailable Tonya Woodruff Unavailable [phone] REASON FOR VISIT Testosterone Medications Medication SIG (Take, Route, Frequency, Duration) Notes Start Date End Date Status Testosterone 20.25 MG/ACT (1.62%) 3 pumps on the skin daily for 30 days 11/27/2024 Active Encounters Encounter Location Date Provider Diagnosis [facility] [address] [facility] [address] [place] [address] 11/27/2024 Tonya Woodruff Plan Of Treatment Medication Medication Name Sig Start Date Stop Date Notes Testosterone 20.25 MG/ACT (1.62%) 3 pump s on the skin daily for 30 days 11/27/2024 Next Appt Details Provider Name:Tonya Silverman, 05/05/2025 02:00:00 PM, [address] [facility] [address], [place], [address], Progress Notes * Charan KAMARA TDOB:1955 (69 yo M)Acc No.[id number]:11/27/2024 Patient: Charan ENGEL :1955 A ge:69 Y S ex:Male Address:[address] [place] [id number] * Refills Start Testosterone Gel, 20.25 MG/ACT (1.62%), on the skin, 90, 3 pumps, daily, 30 days, Refills=5 * true * Date: Generated for Man palacios/Yony/Flaquito on: 0 02/09/2025 07:11 PM CDT
--- OUTSIDE RECORDS SUMMARY | 2024-12-11 01:50 | XMS_ITS ---
Author Organization [facility] Address [address] [place] [address] Care Team Providers Care Professor Of Legal Studies Name Role Phone Kady Floyd Primary Care Provider [phone] Bala Wilson Unavailable [phone] KADY FLOYD Unavailable Unavailable Tonya Woodruff Unavailable [phone] REASON FOR VISIT Testosterone PA/Approval Encounters Encounter Location Date Provider Diagnosis [facility] [address] [place] [address] [address] 12/11/2024 Tonya Woodruff Plan Of Treatment Next Appt Details Provider Name:Tonya Silverman, 05/05/2025 02:00:00 PM, [address] , [place] [address], [place], [address], Progress Notes * Charan KAMARA TDOB:1955 (69 yo M)Acc No.[id number]:12/11/2024 Patient: Charan ENGEL :1955 A ge:69 Y S ex:Male Address:[address] [place] [id number] * true * Date: Generated for Man palacios/Yony/eTransmitting on: 0 02/09/2025 07:10 PM CDT
--- NOTE | 2025-02-09 13:48 | XR_ITS ---
WS: [id number] Exam: XR chest 1V portable [id number] Date/Time of Exam: 02/09/2025 1:48 PM Reason For Exam: syncope Comparison 12/04/2024 Lungs are clear and fully expanded. Cardiomediastinal silhouette is unremarkable for technique. A RIGHT subclavian central line ends at the cavoatrial junction. No pleural effusions. Signs of previous median sternotomy. Marr rods noted in the thoracic spine. XR/XR chest 1V portable [id number] IMPRESSION: 1. No acute cardiopulmonary finding.
--- NOTE | 2025-02-09 13:49 | ECG_ITS ---
1006.tv Test Date: 2025-02-09 Pat Name: Charan Voss Department: Room: Gender: Male Clay Carman: : 1955 Requested By: Donato Chance Order Number: [id number] Hilary MD: MARGAUX STOVALL Measurements Intervals [place] Rate: 104 P: 0 [place]: 0 QRS: -26 QRSD: 117 T: 67 QT: 359 QTc: 473 Interpretive Statements ATRIAL FIBRILLATION WITH RAPID VENTRICULAR RESPONSE POSSIBLE INFERIOR MYOCARDIAL INFARCTION , PROBABLY OLD [30 ms Q WAVE IN II/aVF] ABNORMAL RHYTHM ECG Compared to ECG 12/04/2024 16:21:40 Myocardial infarct finding now present T-wave abnormality no longer present Electronically Signed On 02-11-2025 23:33:55 CDT by MARGAUX STOVALL [email or web address]
[2025-02-09 13:55] VITALS: BP 98/63; PULSE 93; RESP 16; TEMP 36.5; O2SAT 93; BMI 32.5
--- NOTE | 2025-02-09 14:03 | CT_ITS ---
WS: [id number] CT HEAD NONCONTRAST HISTORY: syncope TECHNIQUE: Contiguous axial imaging performed through the brain. Bone and soft tissue windows. Sagittal and coronal reformats reviewed. All CT scans at [facility] use at least one of these dose optimization techniques: automated exposure control; mA and/or kV adjustment per patient size (includes targeted exams where dose is matched to clinical indication); or iterative reconstruction. DLP: 1466.19 mGy.cm COMPARISON: 07/07/2024 No acute intracranial hemorrhage, midline shift or mass effect. Mild symmetric atrophy. Mild small vessel disease. No prior infarct. No significant cerebellar atrophy. Ventricles: Normal size with no hydrocephalus. No inferior displacement of the cerebellar tonsils. Paranasal sinuses: As visualized are clear. Mastoid air cells: Well pneumatized. Calvarium and scalp: Skull is intact with no soft tissue edema or swelling. CT/CT head wo con* [id number] IMPRESSION: 1. No acute intracranial hemorrhage or edema. 2. Mild symmetric atrophy and small vessel disease. 3. No scalp hematoma.
--- NOTE | 2025-02-09 14:12 | W.ED.WEAKNES ---
HPI - Weakness General: Chief complaint: Weakness Stated complaint: Syncope Time Seen by Provider: 02/09/25 13:48 Source: patient and EMS Mode of arrival: EMS Limitations: no limitations History of Present Illness: 69-year-old male history of colon cancer currently is on chemo his last treatment was Saturday states today has been having nausea vomiting had some weakness was sitting in his shower chair and had a syncopal event. He has had a slight headache he is unsure if he hit his head. Denies chest pain Associated symptoms: Reports headache(s), nausea, syncope and vomiting; Denies chest pain, chills or fever(s) Review of Systems Const: Reports: fatigue and malaise; Denies: fever(s), chills, body aches or change in appetite ENMT: Denies: throat pain or dental pain Card: Reports: syncope; Denies: chest pain Resp: Denies: dyspnea GI: Reports: nausea and vomiting; Denies: abdominal pain or diarrhea Musc: Denies: neck pain or back pain Skin/Breast: Denies: rash Neuro: Reports: headache(s) 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 (~08/2022) hospitalized in [place] Chronic sinusitis of both maxillary sinuses Gout Asperger syndrome mild Dyslipidemia Degenerative joint disease (DJD) of lumbar spine Obstructive sleep apnea Chronic low back pain Substernal goiter Asthma Restrictive lung disease due to kyphoscoliosis Suspected exposure to asbestos Allergies Right renal stone Testosterone deficiency On TRT for 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 Erectile dysfunction Opioid contract exists previous Chronic pain syndrome Surgical History Hx of bilateral cataract extraction History of colostomy (11/01/22) Colostomy revision for control of bleeding History of exploratory laparotomy (10/15/22) Exploratory laparotomy with partial colon resection and with end colostomy formation Status post left hemicolectomy (10/08/22) laparoscopic converted to open, with splenic flexure takedown and right colon mobilization, primary anastamosis History of back surgery History of shoulder surgery History of appendectomy H/O arthroscopic knee surgery H/O ankle fusion H/O wrist surgery S/P ureteral stent placement Family History Grandfather CAD (coronary artery disease) Family/Other Cancer Grandmother Dementia Stroke Mother Lung disease Other Hypertension Denies family history of Rheumatoid arthritis Diabetes Lupus Clotting disorder Hyperlipidemia Chronic kidney disease (CKD) Suicide Anesthesia complication Bleeding disorder Social History Smoking and tobacco/nicotine status: former use of tobacco/nicotine Quit status (tobacco/nicotine): has quit using Year quit tobacco: 1975 [id number] Second hand smoke exposure: Yes Alcohol intake: never Substance/Drug Use: never Lives independently: Yes Current occupational status: retired Pets and animals: Yes Do you think of yourself as: Straight/Heterosexual Current gender identity: Male Physical Exam Const: COMMON NORMALS: patient oriented x3 and healthy appearing HENMT: COMMON NORMALS: normocephalic and atraumatic HEAD & SCALP: normocephalic and atraumatic Eye: COMMON NORMALS: conjunctivae normal CONJUNCTIVA: Yes conjunctivae normal Neck/C-Spine: COMMON NORMALS: full ROM and supple Chest: COMMONS NORMALS: normal inspection of the chest Resp: COMMON NORMALS: normal respiratory effort, No retractions, No use of accessory muscles and clear to auscultation bilaterally AUSCULTATION: clear to auscultation bilaterally Cardio: COMMON NORMALS: No murmurs present (Cardio) RATE: tachycardic RHYTHM: abnormal rhythm irregularly irregular GI: COMMON NORMALS: Normal to inspection, nondistended, normoactive bowel sounds present, Soft to palpation, non-tender and no masses PALPATION: Yes Soft to palpation Extremity: COMMON NORMALS: normal to inspection and full ROM Neuro: COMMON NORMALS: patient oriented x3, moves all extremities and no focal motor deficits Psych: COMMON NORMALS: mental status grossly normal, Normal thought process present and cooperative THOUGHT PROCESS: Normal thought process present Skin: COMMON NORMALS: no rashes or lesions noted and no wounds GENERAL SKIN EXAM: no rashes or lesions noted Course Vital Signs: Vital signs: Vital Signs Temperature 97.7 F 02/09/25 13:55 Pulse Rate 100 02/09/25 15:05 Respiratory Rate 16 02/09/25 15:05 Blood Pressure 119/65 02/09/25 15:05 Pulse Oximetry 96 02/09/25 15:05 Oxygen Delivery Me thod Room Air 02/09/25 13:55 MDM - Weakness Medical Decision Making Patient presents here after syncopal event he has been vomiting as well since his last chemo treatment his creatinine is a little elevated with TALON he has had weakness as well will admit for observation. Medical Records I reviewed the patient's medical records. Lab Data I reviewed the patient's lab results. 02/09/25 14:15 02/09/25 14:15 Radiology Impressions Chest X-Ray 02/09/25 13:48 IMPRESSION: 1. No acute cardiopulmonary finding. Head CT 02/09/25 14:03 IMPRESSION: 1. No acute intracranial hemorrhage or edema. 2. Mild symmetric atrophy and small vessel disease. 3. No scalp hematoma. Laboratory Results WBC 6.42 10^3/uL (3.29-11.43) 02/09/25 14:15 RBC 4.51 10^6/uL (3.85-5.65) 02/09/25 14:15 Hgb 14.10 g/dL (11.27-16.99) 02/09/25 14:15 Hct 44.8 % (37-53) 02/09/25 14:15 MCV 99.3 fl (82-101) 02/09/25 14:15 MCH 31.3 pg (27-33) 02/09/25 14:15 MCHC 31.5 g/dL (30-55) 02/09/25 14:15 RDW 16.4 % (12.1-15.1) H 02/09/25 14:15 Plt Count 373 10^3/cmm (157-399) 02/09/25 14:15 MPV 9.3 fL (7.4-10.4) 02/09/25 14:15 Neut % (Auto) 65.1 % 02/09/25 14:15 Lymph % (Auto) 18.1 % 02/09/25 14:15 Shackelford % (Auto) 12.0 % 02/09/25 14:15 Eos % (Auto) 2.2 % 02/09/25 14:15 Baso % (Auto) 0.3 % 02/09/25 14:15 Neut # (Auto) 4.18 10^3/uL (1.8-7.7) 02/09/25 14:15 Lymph # (Auto) 1.2 10^3/uL (0.8-4.8) 02/09/25 14:15 Shackelford # (Auto) 0.8 10^3/uL (0.2-0.9) 02/09/25 14:15 Eos # (Auto) 0.1 10^3/uL (0.0-0.8) 02/09/25 14:15 Baso # (Auto) 0.0 10^3/uL (0.0-0.1) 02/09/25 14:15 Nucleated RBC % (auto) 0 % 02/09/25 14:15 Nucleated RBCs # 0.0 /100WBC 02/09/25 14:15 Sodium 136 mmol/L (136-145) 02/09/25 14:15 Potassium 3.1 mmol/L (3.5-5.1) L 02/09/25 14:15 Chloride 95 mmol/L (98-107) L 02/09/25 14:15 Carbon Dioxide 22 mmol/L (22-29) 02/09/25 14:15 Anion Gap 22.1 (5-19) H 02/09/25 14:15 BUN 30 mg/dL (8-23) H 02/09/25 14:15 Creatinine 2.1 mg/dL (0.7-1.2) H 02/09/25 14:15 GFR Calculation 31.5 mL/min (90-130) L 02/09/25 14:15 Glucose 159 mg/dL (65-115) H 02/09/25 14:15 Calculated Osmolality 292 mOsm/kg (285-295) 02/09/25 14:15 Calcium 10.1 mg/dL (8.5-10.5) 02/09/25 14:15 Total Bilirubin 0.4 mg/dL (0.15-1.2) 02/09/25 14:15 AST 20 U/L (0-40) 02/09/25 14:15 ALT 15 U/L (0-41) 02/09/25 14:15 Alkaline Phosphatase 81 U/L (40-130) 02/09/25 14:15 Total Protein 8.6 g/dL (6.6-8.7) 02/09/25 14:15 Albumin 4.1 g/dL (3.5-5.2) 02/09/25 14:15 Globulin 4.5 g/dL (1.3-4.6) 02/09/25 14:15 All radiology interpretation(s) finalized by discharge EKG Data EKG 1: I personally reviewed and interpreted this EKG as follows: EKG interpretation date: 02/09/25 EKG interpretation time: 13:49 Interpretation: afib hr [address] elevation qrs 117 qtc 419 Discharge Plan Discharge Patient Disposition: Placed in Observation Clinical Impression: Syncope, Vomiting, Acute kidney injury, Malignant neoplasm of splenic flexure Coding Level of Care Code ED 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 [employer] for Chg Fwd Related Data Home Medications ?Medication ?Instructions ?Recorded ?Confirmed allopurinol 300 mg tablet 300 mg PO DAILY 10/15/19 02/09/25 resveratrol 250 mg capsule 250 mg PO DAILY 11/15/20 02/09/25 saw palmetto 500 mg capsule 500 mg PO DAILY 11/15/20 02/09/25 acetaminophen 500 mg tablet 1,000 mg PO Q6H PRN Pain 10/09/22 02/09/25 trazodone 150 mg tablet 300 mg PO BEDTIME 10/09/22 02/09/25 gabapentin 300 mg capsule 300 mg PO TID 02/04/23 02/09/25 lovastatin 40 mg tablet 40 mg PO BEDTIME 02/05/23 02/09/25 albuterol sulfate 90 mcg/actuation 2 puff inhalation Q4H PRN 10/08/24 02/09/25 aerosol inhaler Shortness Of Breath digoxin 125 mcg (0.125 mg) tablet 0.125 mg PO DAILY 10/08/24 02/09/25 epinephrine 0.3 mg/0.3 mL See Rx Instructions .Route .COMPLEX 10/08/24 02/09/25 injection, auto-injector furosemide 20 mg tablet 20 mg PO DAILY 10/08/24 02/09/25 oxycodone 10 mg tablet 10 mg PO Q6H PRN Pain 10/08/24 02/09/25 vancomycin 125 mg capsule 125 mg PO DAILY 12/04/24 02/09/25 Held on 12/08/24. Instructions: Resume on 12/17/24. clobetasol 0.05 % topical cream 1 applic topical BID PRN hands 02/09/25 02/09/25 prochlorperazine maleate 10 mg 10 mg PO Q6H PRN Nausea And 02/09/25 02/09/25 tablet Vomiting testosterone 3 pump topical DAILY 02/09/25 02/09/25 Previous Rx's ?Medication ?Instructions ?Recorded amiodarone 200 mg tablet (Pacerone) 200 mg PO DAILY #90 tabs 01/14/25 Allergies Allergy/AdvReac Type Severity Reaction Status Date / Time blackberry Allergy Unknown ADR-Diarrhe Verified 11/25/24 14:48 a blueberry Allergy Unknown ADR-Diarrhe Verified 11/25/24 14:48 a raspberry Allergy Unknown ADR-Diarrhe Verified 11/25/24 14:48 a strawberry Allergy Unknown ADR-Diarrhe Verified 11/25/24 14:48 a tomato Allergy Unknown ADR-Gastrointestinal Verified 11/25/24 14:48 Upset oats Allergy DIARRHEA Verified 11/25/24 14:48 Opioids - Morphine Analogues Allergy ADR-Chest Verified 11/25/24 14:48 Pain caffeine AdvReac Unknown PALPITATION Verified 11/25/24 14:48 S apple AdvReac DIARRHEA, Verified 11/25/24 14:48 VOMITING AND CRAMPING meperidine (From Demerol) AdvReac EXCESSIVE Verified 11/25/24 14:48 SEDATION morphine AdvReac HALLUCINATI Verified 11/25/24 14:48 ONS
[2025-02-09 14:23] LABS: Basophils % 0.3 %; Eosinophils # 0.1 10^3/uL (0.0-0.8); Eosinophils % 2.2 %; Hematocrit 44.8 % (37-53); Lymphocytes # 1.2 10^3/uL (0.8-4.8); Lymphocytes % 18.1 %; Mean Corpuscular HGB Conc 31.5 g/dL (30-55); Mean Corpuscular Hemoglobin 31.3 pg (27-33); Mean Corpuscular Volume 99.3 fl (82-101); Mean Platelet Volume 9.3 fL (7.4-10.4); Monocytes # 0.8 10^3/uL (0.2-0.9); Neutrophils # 4.18 10^3/uL (1.8-7.7); Neutrophils % 65.1 %; Nucleated Red Blood Cells % 0 %; Platelet Count 373 10^3/cmm (157-399); Red Blood Count 4.51 10^6/uL (3.85-5.65); Red Cell Distribution Width 16.4 % (12.1-15.1); White Blood Count 6.42 10^3/uL (3.29-11.43)
[2025-02-09] MEDS: ondansetron 2 mg/ML SDV 2 mL 4 MG IVP (14:27)
[2025-02-09] MEDS: sodium chloride 0.9% 1,000 ML 999 ML IV (14:27)
[2025-02-09 14:41] LABS: Alanine Aminotransferase 15 U/L (0-41); Albumin Level 4.1 g/dL (3.5-5.2); Alkaline Phosphatase 81 U/L (40-130); Anion Gap 22.1 (5-19); Aspartate Amino Transferase 20 U/L (0-40); Blood Urea Nitrogen 30 mg/dL (8-23); Calcium 10.1 mg/dL (8.5-10.5); Carbon Dioxide 22 mmol/L (22-29); Chloride 95 mmol/L (98-107); Creatinine Clr Calc Pharmacy 47.2035; Globulin 4.5 g/dL (1.3-4.6); Glomerular Filtration Rate 31.5 mL/min (90-130); Glucose 159 mg/dL (65-115); Osmolality Calculated 292 mOsm/kg (285-295); Potassium 3.1 mmol/L (3.5-5.1); Sodium 136 mmol/L (136-145); Total Bilirubin 0.4 mg/dL (0.15-1.2); Total Protein 8.6 g/dL (6.6-8.7)
[2025-02-09 15:05] VITALS: BP 119/65; PULSE 100; RESP 16; O2SAT 96
--- NOTE | 2025-02-09 15:13 | PC.PHAR ---
Patient states he is taking all medications listed . I spoke to [facility] and they stated all last fill dates stated on each Medication.
--- NOTE | 2025-02-09 16:36 | CTR_ITS ---
PROCEDURE INFORMATION: Exam: CT Abdomen And Pelvis Without Contrast Exam date and time: 02/09/2025 6:20 PM Age: 69 years old Clinical indication: Vomiting and other: Enoch. Diarrhea; Prior surgery; Surgery date: 6+ months; Surgery type: Marr brooklynn. Lumbar fusion. Appy. Hemicolectomy with colostomy. Enoch with vomiting and diarrhea. History of metastatic colon cancer. ; Additional info: Enoch, diarrhea, vomiting TECHNIQUE: Imaging protocol: Computed tomography of the abdomen and pelvis without contrast. Radiation optimization: All CT scans at this facility use at least one of these dose optimization techniques: automated exposure control; mA and/or kV adjustment per patient size (includes targeted exams where dose is matched to clinical indication); or iterative reconstruction. COMPARISON: CT abdomen pelvis wo con [id number] 12/04/2024 1:23 PM RADIATION DOSE METRICS: Total DLP (mGy-cm): 1085.5 FINDINGS: Liver: Redemonstration of hyperdense known metastatic lesion to the right hepatic lobe inferiorly with limited analysis due to a noncontrast examination. Gallbladder and biliary ducts: Mildly hydropic gallbladder without definitive obstructing cause identified on this noncontrast examination. Pancreas: Normal. No ductal dilation. Spleen: Normal. No splenomegaly. Adrenal glands: Normal. No mass. Kidneys and ureters: Bilateral renal cysts. There also appears to be a hyperdense lesion within the interpolar region of the right kidney that has been stable at least compared to September of 2024 but can not exclude solid lesion versus hyperdense cyst. Nonobstructing bilateral nephrolithiasis. Stomach and bowel: Postsurgical changes related to colectomy. There is a right lower quadrant ostomy. There is no obvious small bowel obstruction at this time. Appendix: No evidence of appendicitis. Intraperitoneal space: Unremarkable. No free air. No significant fluid collection. Vasculature: Unremarkable. No abdominal aortic aneurysm. Lymph nodes: Redemonstration of a prominent poly hepatic lymph node measuring 1.4 x 4.1 cm. Urinary bladder: The urinary bladder is underdistended which limits its complete evaluation. However need to correlate urinalysis to exclude cystitis given the degree of urinary bladder wall thickening. Reproductive: Mild prostatomegaly. Bones/joints: Degenerative changes and postsurgical changes of the spine are overall stable. Scoliotic curvature of the spine. Soft tissues: Fat containing left-sided inguinal hernia. CT/CT abdomen pelvis wo con [id number] IMPRESSION: 1. No specific new acute intraabdominal or intrapelvic process. 2. Correlate with urinalysis since there is redemonstration of urinary bladder wall thickening to exclude cystitis. 3. Redemonstration of hyperdense area in the interpolar region of the right kidney with limited evaluation due to a noncontrast examination. Can not exclude solid lesion versus hyperdense cyst. 4. Additional incidental/chronic findings as above. COMMENTS: Consistent with the [employer]'s Incidental Findings Committee white paper (J Am Dg Radiol 2018): Any incidental renal lesion less than 1 cm or classified as too small to characterize, or any incidental cystic renal lesion characterized as simple-appearing, is likely benign. No follow-up imaging is recommended for these lesions per consensus recommendations based on imaging criteria.
--- NOTE | 2025-02-09 16:46 | PM.HP ---
Providers/Chief Complaint Admitting Physician: Blas Hurt MD Primary Care Provider: Al Álvarez MD Chief Complaint: Syncope History of Present Illness Charan Voss is a 69 year old male with a past medical history of colon cancer, status post colostomy currently, on biweekly chemotherapy with last dose almost a week ago however does not recall the name of his medication at this time. Patient states he has been on the same chemotherapeutic regimen for the past year, it is not an immunotherapy. He presents to the emergency room today stating that since his most recent chemoinfusion he continued to become increasingly weak. He has had diarrhea over the past 3 to 4 days, this morning he had 1 episode of vomiting and abdominal discomfort. Usually his stoma output has pasty semisolid stools, however it has been briseida diarrhea for the past 3 to 4 days. Patient has a past medical history of recurrent C. difficile and is on chronic suppression with oral vancomycin 125 mg p.o. daily since the last 6 months. This morning as he was trying to take a shower while sitting in a spa chair he felt extremely dizzy and was going to pass out. The feeling persisted during the day therefore he presented into the emergency room. He was found to have evidence of acute kidney injury with a creatinine of 2.1, previous baseline being between 1.1-1.4. He has not urinated in over 24 hours. Additionally has a history of small bowel obstruction and states that the last time h his stoma output turned to diarrhea he had a bowel obstruction. He states he is hungry and would like to try to eat something today. No fever chills. No cough chest pain dyspnea or palpitations. Denies any dysuria No headache photophobia or other symptoms. Review of Systems General: Reports: 10 or more systems reviewed and unremarkable except in HPI and below Const: Denies: fever(s), chills, body aches, change in appetite, change in weight, malaise, night sweats, diaphoresis, change in sleep pattern, daytime sleepiness or snoring Eyes: Denies: change in vision, blurry vision, photophobia, eye discomfort or eye discharge ENMT: Denies: throat pain, enlarged tonsils, hoarseness, mouth pain, oral sores, dry mouth, tinnitus, nasal congestion or post nasal drip Card: Denies: chest pain, palpitations, irregular heart rhythm, edema, swelling of feet/ankles, lightheadedness, syncope, pre-syncope, dyspnea on exertion, orthopnea, leg pain with exertion or acrocyanosis Resp: Denies: dyspnea, productive cough, non-productive cough, wheezing, stridor, pain on inspiration, change in phlegm color, hemoptysis or chest congestion GI: Denies: abdominal pain, nausea, vomiting, hematemesis, coffee ground emesis, dysphagia, heartburn, diarrhea, constipation, bloating, GI cramping, change in bowel habits, pain on defecation, hematochezia or melena : Denies: flank pain, difficulty urinating, dysuria, urinary frequency, urinary urgency, urinary hesitancy, urinary dribbling, difficulty starting urination, change in urine stream, nocturia or hematuria Musc: Denies: neck pain, back pain, extremity pain, joint pain, joint swelling, joint redness, joint stiffness or limited range of motion Neuro: Denies: headache(s), numbness in extremities, weakness in extremities, sensory changes, lack of coordination, difficulty walking, frequent falls, dizziness, vertigo, confusion, Slurred speech present, difficulty communicating thoughts or seizure-like activity Psych: Denies: anxiety, depression, mood swings, panic attacks, hopelessness or irritability Endo: Denies: polyuria, polydipsia, tired all the time, cold intolerance, excessive sweating, flushing or heat intolerance Leif/Lymph: Denies: easy bruising or easy bleeding All/Imm: Denies: tongue swelling, facial swelling or acute wheezing Medications/Allergies Home Medications ?Medication ?Instructions ?Recorded ?Confirmed ?Last Taken ?Type allopurinol 300 mg tablet 300 mg PO DAILY 10/15/19 02/09/25 02/09/25 History resveratrol 250 mg capsule 250 mg PO DAILY 11/15/20 02/09/25 02/08/25 History saw palmetto 500 mg capsule 500 mg PO DAILY 11/15/20 02/09/25 02/08/25 History acetaminophen 500 mg tablet 1,000 mg PO Q6H PRN Pain 10/09/22 02/09/25 01/09/24 History trazodone 150 mg tablet 300 mg PO BEDTIME 10/09/22 02/09/25 02/08/25 20:00 History gabapentin 300 mg capsule 300 mg PO TID 02/04/23 02/09/25 12/04/24 History lovastatin 40 mg tablet 40 mg PO BEDTIME 02/05/23 02/09/25 12/03/24 History albuterol sulfate 90 mcg/actuation 2 puff inhalation Q4H PRN 10/08/24 02/09/25 Unknown History aerosol inhaler Shortness Of Breath digoxin 125 mcg (0.125 mg) tablet 0.125 mg PO DAILY 10/08/24 02/09/25 02/09/25 History epinephrine 0.3 mg/0.3 mL See Rx Instructions .Route .COMPLEX 10/08/24 02/09/25 Unknown History injection, auto-injector furosemide 20 mg tablet 20 mg PO DAILY 10/08/24 02/09/25 02/08/25 History oxycodone 10 mg tablet 10 mg PO Q6H PRN Pain 10/08/24 02/09/25 12/04/24 History vancomycin 125 mg capsule 125 mg PO DAILY 12/04/24 02/09/25 02/08/25 History Held on 12/08/24. Instructions: Resume on 12/17/24. amiodarone 200 mg tablet (Pacerone) 200 mg PO DAILY #90 tabs 01/14/25 02/09/25 02/09/25 Rx clobetasol 0.05 % topical cream 1 applic topical BID PRN hands 02/09/25 02/09/25 Unknown History prochlorperazine maleate 10 mg 10 mg PO Q6H PRN Nausea And 02/09/25 02/09/25 Unknown History tablet Vomiting testosterone 3 pump topical DAILY 02/09/25 02/09/25 02/08/25 History Allergies Allergy/AdvReac Type Severity Reaction Status Date / Time blackberry Allergy Unknown ADR-Diarrhe Verified 11/25/24 14:48 a blueberry Allergy Unknown ADR-Diarrhe Verified 11/25/24 14:48 a raspberry Allergy Unknown ADR-Diarrhe Verified 11/25/24 14:48 a strawberry Allergy Unknown ADR-Diarrhe Verified 11/25/24 14:48 a tomato Allergy Unknown ADR-Gastrointestinal Verified 11/25/24 14:48 Upset oats Allergy DIARRHEA Verified 11/25/24 14:48 Opioids - Morphine Analogues Allergy ADR-Chest Verified 11/25/24 14:48 Pain caffeine AdvReac Unknown PALPITATION Verified 11/25/24 14:48 S apple AdvReac DIARRHEA, Verified 11/25/24 14:48 VOMITING AND CRAMPING meperidine (From Demerol) AdvReac EXCESSIVE Verified 11/25/24 14:48 SEDATION morphine AdvReac HALLUCINATI Verified 11/25/24 14:48 ONS PFSH Acute PFSH: Medical History Complication of ostomy Ventilator dependent Intra-abdominal abscess post-procedure Metastatic colon cancer to liver Malignant neoplasm of splenic flexure Renal hematoma Colostomy complication C. 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 (~08/2022) hospitalized in [place] Chronic sinusitis of both maxillary sinuses Gout Asperger syndrome mild Dyslipidemia Degenerative joint disease (DJD) of lumbar spine Obstructive sleep apnea Chronic low back pain Substernal goiter Asthma Restrictive lung disease due to kyphoscoliosis Suspected exposure to asbestos Allergies Right renal stone Testosterone deficiency On TRT for 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 Erectile dysfunction Opioid contract exists previous Chronic pain syndrome Surgical History Hx of bilateral cataract extraction History of colostomy (11/01/22) Colostomy revision for control of bleeding History of exploratory laparotomy (10/15/22) Exploratory laparotomy with partial colon resection and with end colostomy formation Status post left hemicolectomy (10/08/22) laparoscopic converted to open, with splenic flexure takedown and right colon mobilization, primary anastamosis History of back surgery History of shoulder surgery History of appendectomy H/O arthroscopic knee surgery H/O ankle fusion H/O wrist surgery S/P ureteral stent placement Family History Grandfather CAD (coronary artery disease) Family/Other Cancer Grandmother Dementia Stroke Mother Lung disease Other Hypertension Denies family history of Rheumatoid arthritis Diabetes Lupus Clotting disorder Hyperlipidemia Chronic kidney disease (CKD) Suicide Anesthesia complication Bleeding disorder Social History Smoking and tobacco/nicotine status: former use of tobacco/nicotine Quit status (tobacco/nicotine): has quit using Year quit tobacco: 1976 [id number] Second hand smoke exposure: Yes Alcohol intake: never Substance/Drug Use: never Lives independently: Yes Current occupational status: retired Pets and animals: Yes Do you think of yourself as: Straight/Heterosexual Current gender identity: Male Vitals/I&O/Wt Last Vital Signs Temp 97.7 F 02/09/25 13:55 Pulse 100 02/09/25 15:05 Resp 16 02/09/25 15:05 BP 119/65 02/09/25 15:05 Pulse Ox 96 02/09/25 15:05 O2 Del Method Room Air 02/09/25 13:55 02/09/25 02/09/25 02/09/25 06:59 14:59 22:59 Intake Total 0 / 0 Balance 0 / 0 Weight last 48 hrs Weight 121.109 kg Physical Exam Narrative: General: No acute distress, AO x3, dehydrated, sick appearing HEENT: PERRLA, pupils bilaterally equal and reactive Chest: Normal vesicular breath sounds, no added sounds, equal good air entry bilaterally CVS: S1-S2 regular, no murmurs, no tachycardia, no gallops, no rubs Abdomen: Soft, nontender, no organomegaly, bowel sounds present, central healed vertical scar, colostomy in place with greenish blackish liquid watery bowel movement Neuro: No focal deficits, no facial deformity, AO x3, power 5/5 in all limbs Data 02/10/25 04:00 02/10/25 04:00 A&P Assessment and plan (1) Syncope and collapse: Most likely in setting of dehydration due to diarrhea and vomiting and poor oral intake recently along with ongoing chemotherapy. Check orthostatics. Telemetry. Physical therapy evaluation. (2) Diarrhea: History of C. difficile. On chronic suppression. Check stool for C. difficile and stool studies. Empirically start on Dificid as patient has a high chance of recurrent C. difficile. Hold off on daily vancomycin for now. Normal saline at 100 cc/h. (3) Vomiting: Zofran as needed. Protonix daily. Clear liquid diet. (4) Acute kidney injury: Most likely in setting of dehydration. Does have history of kidney stones. Check CT on pelvis without contrast. Medical reconciliation for nephrotoxic drugs. Strict input output charting. IV fluid as above. Check urine lites and urinalysis. (5) H/O Clostridium difficile infection: (6) Hypertension: Goal blood pressure less than 140/90 mmHg. Continue to monitor. (7) Afib: Takes amiodarone 200 mg daily at home, digoxin. Given TALON. Hold off on digoxin. Digoxin level. Not on anticoagulation as an outpatient. Last echocardiogram from December 2024 showed an EF of 60% with mild LVH, biatrial enlargement (8) Malignant neoplasm of splenic flexure: (9) Metastatic colon cancer to liver: Plan CODE STATUS: will be DPOA. Full code. Protonix OPD prophylaxis Heparin for DVT prophylaxis Clear liquid diet PDMP PDMP Reviewed: Not Reviewed Attestations Medical Necessity Statement*: Admission for more than 2 midnights for management of w dehydration, TALON, due to nausea, vomiting, diarrhea with poor oral intake in a patient with history of C. difficile on chemotherapy for colon cancer admitted with syncope Diagnoses Syncope and collapse R55 Diarrhea R19.7 Vomiting R11.10 Acute kidney injury N17.9 H/O Clostridium difficile infection Z86.19 Primary hypertension I10 Hypertension type: primary hypertension Longstanding persistent atrial fibrillation I48.11 Atrial fibrillation type: longstanding persistent Malignant neoplasm of splenic flexure C18.5 Metastatic colon cancer to liver C18.9; C78.7
[2025-02-09 17:02] VITALS: O2SAT 98
[2025-02-09 17:13] LABS: Lactic Sepsis W/Reflex 2.2 mmol/L (0.5-2.2)
[2025-02-09 17:25] LABS: Procalcitonin 0.41 ng/mL (0-0.5)
[2025-02-09 18:00] LABS: Iron 41 ug/dL (59-158); Percent Saturation 17.9 % (20-50); Total Iron Binding Capacity 228 mcg/dl; Unsaturated Iron Binding 187 ug/dL (112-347); Vitamin B12 696 pg/mL (232-1245)
[2025-02-09 18:26] LABS: Reflex Lactate Order REFLEX LACTIC ORDERD
[2025-02-09] MEDS: pantoprazole 40 mg SDV IVP (18:49)
[2025-02-09] MEDS: heparin 5,000 unit/mL INJ 1 mL 5000 UNIT SUBCUT (18:49)
[2025-02-09] MEDS: piperacillin-tazobactam 3.375 GM in sodium chloride 0.9% (plus) 50 ML IV (18:49)
[2025-02-09] MEDS: sodium chloride 0.9% 1,000 ML 100 ML IV (18:50)
[2025-02-09] MEDS: fidaxomicin 200 mg Tablet PO (18:52)
--- OUTSIDE RECORDS SUMMARY | 2025-02-09 19:10 | XMS_ITS | Encounter Summary ---
Author Organization [facility] Address [address] [place] [address] Care Team Providers Care Rag Boiler Name Role Phone Favian Maldonado MD, Shant Humphreys Primary Care Provider Encounter Details Date Type Department Care Team (Late st Contact Info) Description 12/06/2022 Lab Requisition [facility] Laboratory Services [address] [place] [address] Esther Sarmiento MD [address] [place] [address] Social History Tobacco Use Types Packs/Day Years Used Date Smoking Tobacco: Never Assessed Sex and Gender Information Value Date Recorded Sex Assigned at Not on file Legal 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 ADMINISTRATION INTERNS[employer]IP Gender Identity Not on file Sexual Orientation Not on file documented as of this encounter Plan of Treatment Not on file documented as of this encounter Procedures Procedure Name Priority Date/Time Associated Diagnosis Comments EXTRA TUBE (GREEN) Routine 12/06/2022 3:00 AM [employer]ATION INTERNS[employer] documented in this encounter Results * EXTRA TUBE (GREEN) (12/06/2022 3:00 AM ADMIN[employer]ATION INTERNS[employer]) Blood Collection / Unknown 12/06/2022 3:00 AM [employer] INTER[employer] 12/06/2022 7:33 AM AD[employer] INTER[employer] us Esther Sarmiento MD CHEMISTRY ORDERABLES Final Resul t [facility] CLIA # [id number] [address] [facility] [place] [address] documented in this encounter Visit Diagnoses Not on filedocumented in this encounter Additional Health Concerns Infection Onset Date Last Indicated Resolved Time C Diff 11/17/2022 11/17/2022 01/16/2023 1:16 AM CDT documented as of this encounter Care Teams Rag Boiler Relationship Specialty Start Date End Date Shant Ballesteros Jr., MD [address] [place] [address] PCP - General Family Practice 01/19/14 documented as of this encounter
--- OUTSIDE RECORDS SUMMARY | 2025-02-09 19:10 | XMS_ITS | Encounter Summary ---
Author Organization [employer] Address [address] [place] [address] Care Team Providers Care Fire Investigation Manager Name Role Phone Favian Maldonado MD, Shant Humphreys Primary Care Provider Encounter Details Date Type Department Care Team (Late st Contact Info) Description 12/05/2022 Lab Requisition [facility] Laboratory Services [address] [place] [address] Low Amaya, DO [address] [place] [phone] Social History Tobacco Use Types Packs/Day Years Used Date Smoking Tobacco: Never Assessed Sex and Gender Information Value Date Recorded Sex Assigned at Not on file Legal 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 CRESTER Gender Identity Not on file Sexual Orientation Not on file documented as of this encounter Plan of Treatment Not on file documented as of this encounter Procedures Procedure Name Priority Date/Time Associated Diagnosis Comments PHOSPHORUS Routine 12/05/2022 6:30 AM CRESTER MAGNESIUM LEVEL Routine 12/05/2022 6:30 AM CRESTER BASIC METABOLIC PANEL Routine 12/05/2022 6:30 AM CRESTER documented in this encounter Results * MAGNESIUM LEVEL (12/05/2022 6:30 AM CRESTER) MAGNESIUM 2.0 1.6 - 2.4 mg/dL 12/05/2022 8:37 AM CRESTER [facility] Blood Collection / Unknown 12/05/2022 6:30 AM CRESTER 12/05/2022 8:18 AM CRESTER Low Amaya DO CHEMISTRY ORDERABLES Final R esult Performing Organization Address [facility]/ZIP Co de Phone Number [facility] CLIA # [id number] [address] [address] * PHOSPHORUS (12/05/2022 6:30 AM CRESTER) PHOSPHORUS 4.0 2.5 - 4.5 mg/dL 12/05/2022 8:37 AM [facility] Blood Collection / Unknown 12/05/2022 6:30 AM CRESTER 12/05/2022 8:18 AM CRESTER Low Amaya DO CHEMISTRY ORDERABLES Final R esult Performing Organization Address [facility] Co de Phone Number [facility] CLIA # [id number] [address] [address] * (ABNORMAL) BASIC METABOLIC PANEL (12/05/2022 6:30 AM CRESTER) SODIUM 141 136 - 145 mmol/L 12/05/2022 8:37 AM [facility] POTASSIUM 4.4 3.5 - 5.1 mmol/L 12/05/2022 8:37 AM [facility] CHLORIDE 105 98 - 107 mmol/L 12/05/2022 8:37 AM [facility] CO2 32(H) 22 - 29 mmol/L 12/05/2022 8:37 AM [facility] CALCIUM 10.2 8.8 - 10.2 mg/dL 12/05/2022 8:37 AM [facility] BUN 35(H) 8 - 23 mg/dL 12/05/2022 8:37 AM [facility] CREATININE 0.93 0.67 - 1.17 mg/dL 12/05/2022 8:37 AM [facility] GLUCOSE 116(H) 74 - 99 mg/dL 12/05/2022 8:37 AM [facility] GFR >60 >=60 mL/min/1.7 3 sq meter 12/05/2022 8:37 AM [facility] Comment:eGFR calculated with 2020 CKD-EPI equation. Vegetarian diet, extremely high or low muscle mass, and may affect results. Cystatin C with Glomerular Filtration Rate is a suitable alternative for these patients. ANION GAP 4(L) 9 - 20 mmol/L 12/05/2022 8:37 AM [facility] Blood Collection / Unknown 12/05/2022 6:30 AM CRESTER 12/05/2022 8:18 AM CRESTER Low Amaya DO CHEMISTRY ORDERABLES Final R esult [id number] [address] [place] [address] documented in this encounter Visit Diagnoses Not on filedocumented in this encounter Additional Health Concerns Infection Onset Date Last Indicated Resolved Time C Diff 11/17/2022 11/17/2022 01/16/2023 1:16 AM CDT documented as of this encounter Care Teams Fire Investigation Manager Relationship Specialty Start Date End Date Shant Ballesteros Jr., MD [address] [place] [address] PCP - General Family Practice 01/19/14 documented as of this encounter
--- OUTSIDE RECORDS SUMMARY | 2025-02-09 19:10 | XMS_ITS | Encounter Summary ---
Author Organization [employer] Address 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 Gender Identity Not on file Sexual Orientation Not on file documented as of this encounter Plan of Treatment Not on file documented as of this encounter Procedures Procedure Name Priority Date/Time Associated Diagnosis Comments TESTOSTERONE FREE AND TOTAL Routine 12/13/2022 4:30 AM CDT CBC WITH DIFFERENTIAL Routine 12/13/2022 4:30 AM CDT documented in this encounter Results * (ABNORMAL) CBC WITH DIFFERENTIAL (12/13/2022 4:30 AM CDT) [facility] WBC 6.0 4.8 - 10.8 K/uL 12/13/2022 5:36 AM CDT [facility] RBC 3.36(L) 4.60 - 6.20 M/uL 12/13/2022 5:36 AM [facility] HEMOGLOBIN 10.3(L) 14.0 - 18.0 g/dL 12/13/2022 5:36 AM [facility] HEMATOCRIT 33.7(L) 41.0 - 53.0 % 12/13/2022 5:36 AM [facility] MCV 100.3 84.0 - 103.0 fL 12/13/2022 5:36 AM [facility] MCH 30.7 27.0 - 34.0 pg 12/13/2022 5:36 AM [facility] MCHC 30.6 30.0 - 35.0 g/dL 12/13/2022 5:36 AM [facility] RDW 15.9(H) 11.0 - 14.5 % 12/13/2022 5:36 AM [facility] RDW-STDEV 58.9(H) 37.0 - 54.0 fL 12/13/2022 5:36 AM [facility] PLATELETS 262 140 - 440 K/uL 12/13/2022 5:36 AM [facility] MPV 10.9 8.9 - 12.8 fL 12/13/2022 5:36 AM [facility] NEUTROPHILS 54 42 - 75 % 12/13/2022 5:36 AM [facility] LYMPHOCYTES 23(L) 24 - 44 % 12/13/2022 5:36 AM [facility] MONOCYTES 14(H) 2 - 10 % 12/13/2022 5:36 AM [facility] EOSINOPHILS 8(H) 0 - 7 % 12/13/2022 5:36 AM [facility] BASOPHILS 1 0 - 1 % 12/13/2022 5:36 AM [facility] IMMATURE GRANULOCYTES 1 0 - 2 % 12/13/2022 5:36 AM [facility] NEUTROPHIL ABSOLUTE 3.23 2.00 - 8.00 K/uL 12/13/2022 5:36 AM [facility] LYMPHOCYTE ABSOLUTE 1.39 1.20 - 4.00 K/uL 12/13/2022 5:36 AM CDT [facility] MONOCYTE ABSOLUTE 0.81(H) 0.10 - 0.60 K/uL 12/13/2022 5:36 AM CDT [facility] EOSINOPHIL ABSOLUTE 0.50 0.00 - 0.70 K/uL 12/13/2022 5:36 AM CDT [facility] BASOPHILS ABSOLUTE 0.04 0.00 - 0.20 K/uL 12/13/2022 5:36 AM CDT [facility] IMMATURE GRANULOCYTES ABSOLUTE 0.03 0.00 - 0.10 K/uL 12/13/2022 5:36 AM CDT [facility] Blood Collection / Unknown 12/13/2022 4:30 AM CDT 12/13/2022 5:28 AM CDT us Esther Sarmiento MD HEMATOLOGY ORDERABLES Final Resu lt [facility] CLIA # [id number] [address] [place] [address] * (ABNORMAL) TESTOSTERONE FREE AND TOTAL (12/13/2022 4:30 AM CDT) [facility] TESTOSTERONE 28(L) 250 - 1100 ng/dL 12/16/2022 11:31 AM CDT [facility] Comment: Men with clinically significant hypogonadal symptoms and testosterone values repeatedly in the range of the 200-300 ng/dL or less, may benefit from testosterone treatment after adequate risk and benefits counseling. For additional information, please refer to https://education.Trustifi/faq/XPA723 (This link is being provided for informational/educational purposes only.) (Note) This test was developed and its analytical performance characteristics have been determined by [employer]. It has not been cleared or approved by the FDA. This assay has been validated pursuant to the CLIA regulations and is used for clinical purposes. TESTOSTERONE FREE 4.3(L) 35.0 - 155.0 pg/mL 12/16/2022 11:31 AM CDT [facility] Comment: (Note) This test was developed and its analytical performance characteristics have been determined by [employer]. It has not been cleared or approved by the FDA. This assay has been validated pursuant to the CLIA regulations and is used for clinical purposes. [facility] [address] [place] [address],[address] [place] [id number] Manuel Tirado MD Blood Collection / Unknown 12/13/2022 4:30 AM CDT 12/13/2022 7:43 AM CDT Narrative [facility] - 12/16/2022 11:31 AM CDT Performing Organization Information: Site ID: [id number] Name: [facility] Address: [address] [place] [address], [address] [place] [id number] Director: Manuel Tirado MD Esther Sarmiento MD CHEMISTRY ORDERABLES Final Resul t [facility] documented in this encounter Visit Diagnoses Not on filedocumented in this encounter Additional Health Concerns Infection Onset Date Last Indicated Resolved Time C Diff 11/17/2022 11/17/2022 01/16/2023 1:16 AM CDT documented as of this encounter Care Teams Hose Stripper Relationship Specialty Start Date End Date Shant Ballesteros Jr., MD [address] [place] [address] PCP - General Family Practice 01/19/14 documented as of this encounter
--- OUTSIDE RECORDS SUMMARY | 2025-02-09 19:10 | XMS_ITS | Encounter Summary ---
Author Organization [facility] Address 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 Gender Identity Not on file Sexual Orientation Not on file documented as of this encounter Plan of Treatment Not on file documented as of this encounter Procedures Procedure Name Priority Date/Time Associated Diagnosis Comments CBC WITH DIFFERENTIAL Routine 12/06/2022 4:50 PM RUBBER BLOCK LAYER documented in this encounter Results * (ABNORMAL) CBC WITH DIFFERENTIAL (12/06/2022 4:50 PM RUBBER BLOCK LAYER) WBC 7.0 4.8 - 10.8 K/uL 12/06/2022 6:27 PM RUBBER BLOCK LAYER [facility] RBC 3.23(L) 4.60 - 6.20 M/uL 12/06/2022 6:27 PM RUBBER BLOCK LAYER [facility] HEMOGLOBIN 9.6(L) 14.0 - 18.0 g/dL 12/06/2022 6:27 PM [facility] HEMATOCRIT 31.3(L) 41.0 - 53.0 % 12/06/2022 6:27 PM [facility] MCV 96.9 84.0 - 103.0 fL 12/06/2022 6:27 PM [facility] MCH 29.7 27.0 - 34.0 pg 12/06/2022 6:27 PM [facility] MCHC 30.7 30.0 - 35.0 g/dL 12/06/2022 6:27 PM [facility] RDW 16.9(H) 11.0 - 14.5 % 12/06/2022 6:27 PM [facility] RDW-STDEV 60.0(H) 37.0 - 54.0 fL 12/06/2022 6:27 PM [facility] PLATELETS 247 140 - 440 K/uL 12/06/2022 6:27 PM [facility] MPV 10.5 8.9 - 12.8 fL 12/06/2022 6:27 PM [facility] NEUTROPHILS 57 42 - 75 % 12/06/2022 6:27 PM [facility] LYMPHOCYTES 20(L) 24 - 44 % 12/06/2022 6:27 PM [facility] MONOCYTES 11(H) 2 - 10 % 12/06/2022 6:27 PM [facility] EOSINOPHILS 11(H) 0 - 7 % 12/06/2022 6:27 PM [facility] BASOPHILS 1 0 - 1 % 12/06/2022 6:27 PM [facility] IMMATURE GRANULOCYTES 0 0 - 2 % 12/06/2022 6:27 PM [facility] NEUTROPHIL ABSOLUTE 3.99 2.00 - 8.00 K/uL 12/06/2022 6:27 PM [facility] LYMPHOCYTE ABSOLUTE 1.43 1.20 - 4.00 K/uL 12/06/2022 6:27 PM [facility] MONOCYTE ABSOLUTE 0.77(H) 0.10 - 0.60 K/uL 12/06/2022 6:27 PM RUBBER BLOCK LAYER [facility] EOSINOPHIL ABSOLUTE 0.76(H) 0.00 - 0.70 K/uL 12/06/2022 6:27 PM RUBBER BLOCK LAYER [facility] BASOPHILS ABSOLUTE 0.04 0.00 - 0.20 K/uL 12/06/2022 6:27 PM RUBBER BLOCK LAYER [facility] IMMATURE GRANULOCYTES ABSOLUTE 0.02 0.00 - 0.10 K/uL 12/06/2022 6:27 PM RUBBER BLOCK LAYER [facility] Blood Collection / Unknown 12/06/2022 4:50 PM RUBBER BLOCK LAYER 12/06/2022 6:16 PM RUBBER BLOCK LAYER us Deborah Aguilar MD HEMATOLOGY ORDERABLES Final Res ult [facility] CLIA # [id number] [facility] [address] documented in this encounter Visit Diagnoses Not on filedocumented in this encounter Additional Health Concerns Infection Onset Date Last Indicated Resolved Time C Diff 11/17/2022 11/17/2022 01/16/2023 1:16 AM CDT documented as of this encounter Care Teams Screen Printing Inspector Relationship Specialty Start Date End Date Shant Ballesteros Jr., MD [address] [place] [address] PCP - General Family Practice 01/19/14 documented as of this encounter
--- OUTSIDE RECORDS SUMMARY | 2025-02-09 19:10 | XMS_ITS | Encounter Summary ---
Author Organization [facility] Address [address] [place] [address] Care Team Providers Care Kettle Fry Cook Operator Name Role Phone Favian Maldonado MD, Shant Humphreys Primary Care Provider Encounter Details Date Type Department Care Team (Late st Contact Info) Description 12/19/2022 Lab Requisition [facility] Laboratory Services [address] [place] [address] Esther Sarmiento MD [address] [place] [address] Social History Tobacco Use Types Packs/Day Years Used Date Smoking Tobacco: Never Assessed Feeling Safe Answer Date Recorded Are you in a relationship wi th someone who hurts you emotionally and/or physically? 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 No / Unsure 12/22/2022 2:57 AM CDT documented as of this encounter Plan of Treatment Not on file documented as of this encounter Procedures Procedure Name Priority Date/Time Associated Diagnosis Comments EXTRA TUBE (LAV) Routine 12/19/2022 4:50 AM CDT COMPREHENSIVE METABOLIC PANEL Routine 12/19/2022 4:50 AM CDT documented in this encounter Results * EXTRA TUBE (LAV) (12/19/2022 4:50 AM CDT) Blood Collection / Unknown 12/19/2022 4:50 AM CDT 12/19/2022 10:29 AM CDT us Esther Sarmiento MD HEMATOLOGY ORDERABLES Final Resu lt [facility] CLIA # [id number] [facility] [address] * (ABNORMAL) COMPREHENSIVE METABOLIC PANEL (12/19/2022 4:50 AM CDT) SODIUM 135(L) 136 - 145 mmol/L 12/19/2022 10:48 AM CDT [facility] POTASSIUM 5.3(H) 3.5 - 5.1 mmol/L 12/19/2022 10:48 AM CDT [facility] CHLORIDE 99 98 - 107 mmol/L 12/19/2022 10:48 AM CDT [facility] CO2 25 22 - 29 mmol/L 12/19/2022 10:48 AM CDT [facility] CALCIUM 10.4(H) 8.8 - 10.2 mg/dL 12/19/2022 10:48 AM CDT [facility] BUN 44(H) 8 - 23 mg/dL 12/19/2022 10:48 AM CDT [facility] CREATININE 1.13 0.67 - 1.17 mg/dL 12/19/2022 10:48 AM CDT [facility] GLUCOSE 116(H) 74 - 99 mg/dL 12/19/2022 10:48 AM CDT [facility] TOTAL PROTEIN 7.5 6.4 - 8.3 g/dL 12/19/2022 10:48 AM CDT [facility] ALBUMIN 3.8 3.5 - 5.2 g/dL 12/19/2022 10:48 AM CDT [facility] BILIRUBIN TOTAL <0.2(L) 0.2 - 1.0 mg/dL 12/19/2022 10:48 AM CDT [facility] ALKALINE PHOSPHATASE 111 40 - 129 U/L 12/19/2022 10:48 AM CDT [facility] AST 27 10 - 50 U/L 12/19/2022 10:48 AM CDT [facility] ALT 38 <=50 U/L 12/19/2022 10:48 AM CDT [facility] GFR >60 >=60 mL/min/1. 73 sq meter 12/19/2022 10:48 AM CDT [facility] Comment:eGFR calculated with 2020 CKD-EPI equation. Vegetarian diet, extremely high or low muscle mass, and may affect results. Cystatin C with Glomerular Filtration Rate is a suitable alternative for these patients. ANION GAP 11 9 - 20 mmol/L 12/19/2022 10:48 AM CDT [facility] Blood Collection / Unknown 12/19/2022 4:50 AM CDT 12/19/2022 10:29 AM CDT us Esther Sarmiento MD CHEMISTRY ORDERABLES [facility]ul [id number] [address] [place] [address] documented in this encounter Visit Diagnoses Not on filedocumented in this encounter Additional Health Concerns Infection Onset Date Last Indicated Resolved Time C Diff 11/17/2022 11/17/2022 01/16/2023 1:16 AM CDT documented as of this encounter Care Teams Kettle Fry Cook Operator Relationship Specialty Start Date End Date Shant Ballesteros Jr., MD [address] [place] [id number] PCP - General Family Practice 01/19/14 documented as of this encounter
--- OUTSIDE RECORDS SUMMARY | 2025-02-09 19:10 | XMS_ITS | Encounter Summary ---
Author Organization [facility] Address 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 Gender Identity Not on file Sexual Orientation [...] Associated Diagnosis Comments CBC WITH DIFFERENTIAL Routine 12/20/2022 1:20 AM CDT COMPREHENSIVE METABOLIC PANEL Routine 12/20/2022 1:20 AM CDT documented in this encounter Results * (ABNORMAL) COMPREHENSIVE METABOLIC PANEL (12/20/2022 1:20 AM CDT) SODIUM 134(L) 136 - 145 mmol/L 12/20/2022 6:20 AM CDT [facility] POTASSIUM 5.4(H) 3.5 - 5.1 mmol/L 12/20/2022 6:20 AM CDT [facility] CHLORIDE 97(L) 98 - 107 mmol/L 12/20/2022 6:20 AM CDT [facility] CO2 26 22 - 29 mmol/L 12/20/2022 6:20 AM T [facility] CALCIUM 10.2 8.8 - 10.2 mg/dL 12/20/2022 6:20 AM T [facility] BUN 42(H) 8 - 23 mg/dL 12/20/2022 6:20 AM T [facility] CREATININE 1.10 0.67 - 1.17 mg/dL 12/20/2022 6:20 AM T [facility] GLUCOSE 120(H) 74 - 99 mg/dL 12/20/2022 6:20 AM T [facility] TOTAL PROTEIN 7.4 6.4 - 8.3 g/dL 12/20/2022 6:20 AM T [facility] ALBUMIN 3.6 3.5 - 5.2 g/dL 12/20/2022 6:20 AM T [facility] BILIRUBIN TOTAL 0.2 0.2 - 1.0 mg/dL 12/20/2022 6:20 AM T [facility] ALKALINE PHOSPHATASE 103 40 - 129 U/L 12/20/2022 6:20 AM CDT [facility] AST 27 10 - 50 U/L 12/20/2022 6:20 AM T [facility] ALT 34 <=50 U/L 12/20/2022 6:20 AM T [facility] GFR >60 >=60 mL/min/1.7 3 sq meter 12/20/2022 6:20 AM T [facility] Comment:eGFR calculated with 2020 CKD-EPI equation. Vegetarian diet, extremely high or low muscle mass, and may affect results. Cystatin C with Glomerular Filtration Rate is a suitable alternative for these patients. ANION GAP 11 9 - 20 mmol/L 12/20/2022 6:20 AM T [facility] Blood Collection / Unknown 12/20/2022 1:20 AM CDT 12/20/2022 6:05 AM CDT us Deborah Aguilar MD CHEMISTRY ORDERABLES Final Resu lt [facility] CLIA # [id number] [address] [place] [address] * (ABNORMAL) CBC WITH DIFFERENTIAL (12/20/2022 1:20 AM CDT) WBC 7.9 4.8 - 10.8 K/uL 12/20/2022 6:09 AM [facility] RBC 3.74(L) 4.60 - 6.20 M/uL 12/20/2022 6:09 AM [facility] HEMOGLOBIN 11.4(L) 14.0 - 18.0 g/dL 12/20/2022 6:09 AM [facility] HEMATOCRIT 35.9(L) 41.0 - 53.0 % 12/20/2022 6:09 AM [facility] MCV 96.0 84.0 - 103.0 fL 12/20/2022 6:09 AM [facility] MCH 30.5 27.0 - 34.0 pg 12/20/2022 6:09 AM [facility] MCHC 31.8 30.0 - 35.0 g/dL 12/20/2022 6:09 AM [facility] [employer] [facility] RDW 15.5(H) 11.0 - 14.5 % 12/20/2022 6:09 AM [facility] [employer] [facility] RDW-STDEV 55.0(H) 37.0 - 54.0 fL 12/20/2022 6:09 AM [facility] [employer] [facility] PLATELETS 279 140 - 440 K/uL 12/20/2022 6:09 AM [facility] [employer] [facility] MPV 10.5 8.9 - 12.8 fL 12/20/2022 6:09 AM [facility] [employer] [facility] NEUTROPHILS 54 42 - 75 % 12/20/2022 6:09 AM [facility] [employer] [facility] LYMPHOCYTES 22(L) 24 - 44 % 12/20/2022 6:09 AM [facility] [employer] [facility] MONOCYTES 13(H) 2 - 10 % 12/20/2022 6:09 AM [facility] [employer] [facility] EOSINOPHILS 10(H) 0 - 7 % 12/20/2022 6:09 AM [facility] [employer] [facility] BASOPHILS 1 0 - 1 % 12/20/2022 6:09 AM [facility] IMMATURE GRANULOCYTES 1 0 - 2 % 12/20/2022 6:09 AM [facility] [employer] [facility] NEUTROPHIL ABSOLUTE 4.27 2.00 - 8.00 K/uL 12/20/2022 6:09 AM [facility] LYMPHOCYTE ABSOLUTE 1.72 1.20 - 4.00 K/uL 12/20/2022 6:09 AM [facility] [employer] [facility] MONOCYTE ABSOLUTE 0.99(H) 0.10 - 0.60 K/uL 12/20/2022 6:09 AM [facility] EOSINOPHIL ABSOLUTE 0.76(H) 0.00 - 0.70 K/uL 12/20/2022 6:09 AM [facility] [employer] [facility] BASOPHILS ABSOLUTE 0.06 0.00 - 0.20 K/uL 12/20/2022 6:09 AM [facility] [employer] [facility] IMMATURE GRANULOCYTES ABSOLUTE 0.05 0.00 - 0.10 K/uL 12/20/2022 6:09 AM CDT [facility] [employer] [facility] Blood Collection / Unknown 12/20/2022 1:20 AM CDT 12/20/2022 6:05 AM CDT us Deborah Aguilar MD HEMATOLOGY ORDERABLES Final Res ult [facility] [employer] [facility] CLIA # [id number] [facility] [address] documented in this encounter Visit Diagnoses Not on filedocumented in this encounter Additional Health Concerns Infection Onset Date Last Indicated Resolved Time C Diff 11/17/2022 11/17/2022 01/16/2023 1:16 AM CDT documented as of this encounter Care Teams Boil Off Machine Operator Cloth Relationship Specialty Start Date End Date Shant Balletseros Jr., MD [address] [place] [address] PCP - General Family Practice 01/19/14 documented as of this encounter
--- OUTSIDE RECORDS SUMMARY | 2025-02-09 19:10 | XMS_ITS | Encounter Summary ---
Author Organization [employer] Address 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 Gender Identity Not on file Sexual Orientation Not on file documented as of this encounter Plan of Treatment Not on file documented as of this encounter Procedures Procedure Name Priority Date/Time Associated Diagnosis Comments CBC WITH DIFFERENTIAL Routine 12/10/2022 2:00 AM CDT TRIGLYCERIDE Routine 12/10/2022 2:00 AM CDT PHOSPHORUS Routine 12/10/2022 2:00 AM CDT MAGNESIUM LEVEL Routine 12/10/2022 2:00 AM CDT CALCIUM IONIZED Routine 12/10/2022 2:00 AM CDT COMPREHENSIVE METABOLIC PANEL Routine 12/10/2022 2:00 AM CDT documented in this encounter Results * CALCIUM IONIZED (12/10/2022 2:00 AM CDT) Pathologist [facility] CALCIUM IONIZED 5.4 4.7 - 5.5 mg/dL 12/11/2022 2:42 PM CDT [facility] Blood Collection / Unknown 12/10/2022 2:00 AM CDT 12/10/2022 7:02 AM CDT Narrative [facility] - 12/11/2022 2:42 PM CDT Performing Organization Information: Site ID: [place] Name: [facility] Address: [address] [place] [address] Director: Andrew Alvarado MD Low Amaya CHEMISTRY ORDERABLES Final R esult Performing Organization Address City/[facility]/ZIP Co de Phone Number [facility] * MAGNESIUM LEVEL (12/10/2022 2:00 AM CDT) [facility] MAGNESIUM 2.0 1.6 - 2.4 mg/dL 12/10/2022 7:38 AM CDT [facility] Blood Collection / Unknown 12/10/2022 2:00 AM CDT 12/10/2022 7:02 AM CDT Low Amaya CHEMISTRY ORDERABLES Final R esult Performing Organization Address City/[facility]/ZIP Co de Phone Number [facility] CLIA # [id number] [address] [address] [place] [address] * (ABNORMAL) TRIGLYCERIDE (12/10/2022 2:00 AM CDT) [facility] TRIGLYCERIDE 202(H) <150 mg/dL 12/10/2022 7:38 AM CDT [facility] Blood Collection / Unknown 12/10/2022 2:00 AM CDT 12/10/2022 7:02 AM CDT Narrative [facility] - 12/10/2022 7:38 AM CDT TRIGLYCERIDES mg/dL Normal < 150 Borderline High 150 - 199 High 200 - 499 Very High >= 500 Based on AHA/NCEP Guidelines. Low Amaya DO CHEMISTRY ORDERABLES Final R esult Performing Organization Address City/[facility]/ZIP Co de Phone Number [facility] CLIA # [id number] [address] [id number] * PHOSPHORUS (12/10/2022 2:00 AM CDT) [facility] PHOSPHORUS 3.5 2.5 - 4.5 mg/dL 12/10/2022 7:38 AM CDT [facility] Blood Collection / Unknown 12/10/2022 2:00 AM CDT 12/10/2022 7:02 AM CDT Low Amaya DO CHEMISTRY ORDERABLES Final R [facility] Performing Organization Address [facility] Co de Phone Number [facility] CLIA # [id number] [address] [id number] * (ABNORMAL) CBC WITH DIFFERENTIAL (12/10/2022 2:00 AM CDT) [facility] WBC 7.0 4.8 - 10.8 K/uL 12/10/2022 7:10 AM CDT [facility] RBC 3.23(L) 4.60 - 6.20 M/uL 12/10/2022 7:10 AM CDT [facility] HEMOGLOBIN 9.7(L) 14.0 - 18.0 g/dL 12/10/2022 7:10 AM CDT [facility] HEMATOCRIT 31.3(L) 41.0 - 53.0 % 12/10/2022 7:10 AM [facility] MCV 96.9 84.0 - 103.0 fL 12/10/2022 7:10 AM [facility] MCH 30.0 27.0 - 34.0 pg 12/10/2022 7:10 AM [facility] MCHC 31.0 30.0 - 35.0 g/dL 12/10/2022 7:10 AM [facility] RDW 16.3(H) 11.0 - 14.5 % 12/10/2022 7:10 AM [facility] RDW-STDEV 58.5(H) 37.0 - 54.0 fL 12/10/2022 7:10 AM [facility] PLATELETS 236 140 - 440 K/uL 12/10/2022 7:10 AM [facility] MPV 11.2 8.9 - 12.8 fL 12/10/2022 7:10 AM [facility] NEUTROPHILS 56 42 - 75 % 12/10/2022 7:10 AM [facility] LYMPHOCYTES 20(L) 24 - 44 % 12/10/2022 7:10 AM [facility] MONOCYTES 14(H) 2 - 10 % 12/10/2022 7:10 AM [facility] EOSINOPHILS 7 0 - 7 % 12/10/2022 7:10 AM [facility] BASOPHILS 1 0 - 1 % 12/10/2022 7:10 AM [facility] IMMATURE GRANULOCYTES 1 0 - 2 % 12/10/2022 7:10 AM [facility] NEUTROPHIL ABSOLUTE 3.94 2.00 - 8.00 K/uL 12/10/2022 7:10 AM [facility] LYMPHOCYTE ABSOLUTE 1.42 1.20 - 4.00 K/uL 12/10/2022 7:10 AM [facility] MONOCYTE ABSOLUTE 1.01(H) 0.10 - 0.60 K/uL 12/10/2022 7:10 AM [facility] EOSINOPHIL ABSOLUTE 0.52 0.00 - 0.70 K/uL 12/10/2022 7:10 AM CDT [facility] BASOPHILS ABSOLUTE 0.06 0.00 - 0.20 K/uL 12/10/2022 7:10 AM CDT [facility] IMMATURE GRANULOCYTES ABSOLUTE 0.04 0.00 - 0.10 K/uL 12/10/2022 7:10 AM T [facility] Blood Collection / Unknown 12/10/2022 2:00 AM CDT 12/10/2022 7:02 AM CDT us Low Amaya DO HEMATOLOGY ORDERABLES Final Result [facility] CLIA # [id number] [address] [place] [address] * (ABNORMAL) COMPREHENSIVE METABOLIC PANEL (12/10/2022 2:00 AM CDT) SODIUM 136 136 - 145 mmol/L 12/10/2022 7:38 AM [facility] POTASSIUM 4.4 3.5 - 5.1 mmol/L 12/10/2022 7:38 AM [facility] CHLORIDE 102 98 - 107 mmol/L 12/10/2022 7:38 AM [facility] CO2 26 22 - 29 mmol/L 12/10/2022 7:38 AM [facility] CALCIUM 10.0 8.8 - 10.2 mg/dL 12/10/2022 7:38 AM [facility] BUN 35(H) 8 - 23 mg/dL 12/10/2022 7:38 AM [facility] CREATININE 0.94 0.67 - 1.17 mg/dL 12/10/2022 7:38 AM T [facility] GLUCOSE 117(H) 74 - 99 mg/dL 12/10/2022 7:38 AM [facility] TOTAL PROTEIN 7.0 6.4 - 8.3 g/dL 12/10/2022 7:38 AM T [facility] ALBUMIN 3.3(L) 3.5 - 5.2 g/dL 12/10/2022 7:38 AM T [facility] BILIRUBIN TOTAL 0.2 0.2 - 1.0 mg/dL 12/10/2022 7:38 AM T [facility] ALKALINE PHOSPHATASE 113 40 - 129 U/L 12/10/2022 7:38 AM T [facility] AST 17 10 - 50 U/L 12/10/2022 7:38 AM T [facility] ALT 16 <=50 U/L 12/10/2022 7:38 AM T [facility] GFR >60 >=60 mL/min/1.7 3 sq meter 12/10/2022 7:38 AM [facility] Comment:eGFR calculated with 2020 CKD-EPI equation. Vegetarian diet, extremely high or low muscle mass, and may affect results. Cystatin C with Glomerular Filtration Rate is a suitable alternative for these patients. ANION GAP 8(L) 9 - 20 mmol/L 12/10/2022 7:38 AM T [facility] Blood Collection / Unknown 12/10/2022 2:00 AM CDT 12/10/2022 7:02 AM CDT Low Amaya DO CHEMISTRY ORDERABLES Final R esult [facility] CLIA # [id number] [address] [id number] documented in this encounter Visit Diagnoses Not on filedocumented in this encounter Additional Health Concerns Infection Onset Date Last Indicated Resolved Time C Diff 11/17/2022 11/17/2022 01/16/2023 1:16 AM CDT documented as of this encounter Care Teams Sales Compensation Analyst Relationship Specialty Start Date End Date Shant Ballesteros Jr., MD [address] [place] [address] PCP - General Family Practice 01/19/14 documented as of this encounter
--- OUTSIDE RECORDS SUMMARY | 2025-02-09 19:10 | XMS_ITS | Encounter Summary ---
Author Organization [facility] Address 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 Gender Identity Not on file Sexual Orientation Not on file documented as of this encounter Plan of Treatment Not on file documented as of this encounter Procedures Procedure Name Priority Date/Time Associated Diagnosis Comments CBC WITH DIFFERENTIAL Routine 12/17/2022 3:30 AM CDT documented in this encounter Results * (ABNORMAL) CBC WITH DIFFERENTIAL (12/17/2022 3:30 AM CDT) [facility] WBC 7.8 4.8 - 10.8 K/uL 12/17/2022 6:20 AM T [facility] RBC 3.85(L) 4.60 - 6.20 M/uL 12/17/2022 6:20 AM T [facility] HEMOGLOBIN 11.5(L) 14.0 - 18.0 g/dL 12/17/2022 6:20 AM T [facility] HEMATOCRIT 36.6(L) 41.0 - 53.0 % 12/17/2022 6:20 AM T [facility] MCV 95.1 84.0 - 103.0 fL 12/17/2022 6:20 AM [facility] MCH 29.9 27.0 - 34.0 pg 12/17/2022 6:20 AM [facility] MCHC 31.4 30.0 - 35.0 g/dL 12/17/2022 6:20 AM [facility] RDW 15.6(H) 11.0 - 14.5 % 12/17/2022 6:20 AM [facility] RDW-STDEV 54.4(H) 37.0 - 54.0 fL 12/17/2022 6:20 AM [facility] PLATELETS 282 140 - 440 K/uL 12/17/2022 6:20 AM [facility] MPV 10.7 8.9 - 12.8 fL 12/17/2022 6:20 AM [facility] NEUTROPHILS 58 42 - 75 % 12/17/2022 6:20 AM [facility] LYMPHOCYTES 22(L) 24 - 44 % 12/17/2022 6:20 AM [facility] MONOCYTES 12(H) 2 - 10 % 12/17/2022 6:20 AM [facility] EOSINOPHILS 8(H) 0 - 7 % 12/17/2022 6:20 AM [facility] BASOPHILS 1 0 - 1 % 12/17/2022 6:20 AM CDT [facility] IMMATURE GRANULOCYTES 1 0 - 2 % 12/17/2022 6:20 AM CDT [facility] NEUTROPHIL ABSOLUTE 4.48 2.00 - 8.00 K/uL 12/17/2022 6:20 AM CDT [facility] LYMPHOCYTE ABSOLUTE 1.67 1.20 - 4.00 K/uL 12/17/2022 6:20 AM CDT [facility] MONOCYTE ABSOLUTE 0.90(H) 0.10 - 0.60 K/uL 12/17/2022 6:20 AM CDT [facility] EOSINOPHIL ABSOLUTE 0.61 0.00 - 0.70 K/uL 12/17/2022 6:20 AM CDT [facility] BASOPHILS ABSOLUTE 0.06 0.00 - 0.20 K/uL 12/17/2022 6:20 AM CDT [facility] IMMATURE GRANULOCYTES ABSOLUTE 0.04 0.00 - 0.10 K/uL 12/17/2022 6:20 AM CDT [facility] Blood Collection / Unknown 12/17/2022 3:30 AM CDT 12/17/2022 6:14 AM CDT us Andre Mary CRYPTOGRAPHIC TECHNICIAN HEMATOLOGY ORDERABLES Fi nal Result Performing Organization Address City/State/[facility] Co de Phone Number [facility] CLIA # [id number] [address] [place] [address] documented in this encounter Visit Diagnoses Not on filedocumented in this encounter Additional Health Concerns Infection Onset Date Last Indicated Resolved Time C Diff 11/17/2022 11/17/2022 01/16/2023 1:16 AM CDT documented as of this encounter Care Teams Supervisor Pleating Relationship Specialty Start Date End Date Shant Ballesteros Jr., MD [address] [place] [address] PCP - General Family Practice 01/19/14 documented as of this encounter
--- OUTSIDE RECORDS SUMMARY | 2025-02-09 19:10 | XMS_ITS | Encounter Summary ---
Author Organization [employer] Address 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 Gender Identity Not on file Sexual Orientation Not on file documented as of this encounter Plan of Treatment Not on file documented as of this encounter Procedures Procedure Name Priority Date/Time Associated Diagnosis Comments PHOSPHORUS Routine 12/09/2022 4:20 AM CDT MAGNESIUM LEVEL Routine 12/09/2022 4:20 AM CDT COMPREHENSIVE METABOLIC PANEL Routine 12/09/2022 4:20 AM CDT documented in this encounter Results * PHOSPHORUS (12/09/2022 4:20 AM CDT) PHOSPHORUS 3.4 2.5 - 4.5 mg/dL 12/09/2022 6:34 AM CDT [facility] [employer] [facility] Blood Collection / Unknown 12/09/2022 4:20 AM CDT 12/09/2022 6:15 AM CDT Esther Sarmiento MD CHEMISTRY ORDERABLES Final Resul t Performing Organization Address [facility] Co de Phone Number [facility] CLIA # [id number] [address] [address] * MAGNESIUM LEVEL (12/09/2022 4:20 AM CDT) MAGNESIUM 2.0 1.6 - 2.4 mg/dL 12/09/2022 6:34 AM CDT [facility] [employer] [facility] Blood Collection / Unknown 12/09/2022 4:20 AM CDT 12/09/2022 6:15 AM CDT Esther Sarmiento MD CHEMISTRY ORDERABLES Final Resul t Performing Organization Address [facility] Co de Phone Number [facility] [employer] [facility] CLIA # [id number] [address] [address] * (ABNORMAL) COMPREHENSIVE METABOLIC PANEL (12/09/2022 4:20 AM CDT) SODIUM 136 136 - 145 mmol/L 12/09/2022 6:34 AM CDT [facility] [employer] [facility] POTASSIUM 4.2 3.5 - 5.1 mmol/L 12/09/2022 6:34 AM CDT [facility] [employer] [facility] CHLORIDE 103 98 - 107 mmol/L 12/09/2022 6:34 AM CDT [facility] CO2 27 22 - 29 mmol/L 12/09/2022 6:34 AM CDT [facility] [employer] [facility] CALCIUM 9.8 8.8 - 10.2 mg/dL 12/09/2022 6:34 AM CDT [facility] [employer] [facility] BUN 34(H) 8 - 23 mg/dL 12/09/2022 6:34 AM CDT [facility] CREATININE 0.89 0.67 - 1.17 mg/dL 12/09/2022 6:34 AM T [facility] GLUCOSE 136(H) 74 - 99 mg/dL 12/09/2022 6:34 AM T [facility] TOTAL PROTEIN 7.2 6.4 - 8.3 g/dL 12/09/2022 6:34 AM [facility] ALBUMIN 3.4(L) 3.5 - 5.2 g/dL 12/09/2022 6:34 AM T [facility] BILIRUBIN TOTAL 0.2 0.2 - 1.0 mg/dL 12/09/2022 6:34 AM [facility] ALKALINE PHOSPHATASE 116 40 - 129 U/L 12/09/2022 6:34 AM [facility] AST 16 10 - 50 U/L 12/09/2022 6:34 AM [facility] ALT 17 <=50 U/L 12/09/2022 6:34 AM [facility] GFR >60 >=60 mL/min/1.7 3 sq meter 12/09/2022 6:34 AM [facility] Comment:eGFR calculated with 2020 CKD-EPI equation. Vegetarian diet, extremely high or low muscle mass, and may affect results. Cystatin C with Glomerular Filtration Rate is a suitable alternative for these patients. ANION GAP 6(L) 9 - 20 mmol/L 12/09/2022 6:34 AM [facility] Blood Collection / Unknown 12/09/2022 4:20 AM CDT 12/09/2022 6:15 AM CDT us Esther Sarmiento MD CHEMISTRY ORDERABLES Final Resul t [facility] CLIA # [id number] [address] [address] documented in this encounter Visit Diagnoses Not on filedocumented in this encounter Additional Health Concerns Infection Onset Date Last Indicated Resolved Time C Diff 11/17/2022 11/17/2022 01/16/2023 1:16 AM CDT documented as of this encounter Care Teams Title I Math Tutor Relationship Specialty Start Date End Date Shant Ballesteros Jr., MD [address] [place] [address] PCP - General Family Practice 01/19/14 documented as of this encounter
--- OUTSIDE RECORDS SUMMARY | 2025-02-09 19:10 | XMS_ITS | Encounter Summary ---
Author Organization [employer] [facility] Address 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 Gender Identity Not on file Sexual Orientation Not on file documented as of this encounter Plan of Treatment Not on file documented as of this encounter Procedures Procedure Name Priority Date/Time Associated Diagnosis Comments PHOSPHORUS Routine 12/07/2022 3:30 AM SITE IDENTIFICATION SPECIALIST MAGNESIUM LEVEL Routine 12/07/2022 3:30 AM SITE IDENTIFICATION SPECIALIST BASIC METABOLIC PANEL Routine 12/07/2022 3:30 AM SITE IDENTIFICATION SPECIALIST documented in this encounter Results * (ABNORMAL) PHOSPHORUS (12/07/2022 3:30 AM SITE IDENTIFICATION SPECIALIST) PHOSPHORUS 4.7(H) 2.5 - 4.5 mg/dL 12/07/2022 5:41 AM SITE IDENTIFICATION SPECIALIST [facility] Blood Collection / Unknown 12/07/2022 3:30 AM SITE IDENTIFICATION SPECIALIST 12/07/2022 5:10 AM SITE IDENTIFICATION SPECIALIST Low Monique DO CHEMISTRY ORDERABLES Final R esult Performing Organization Address City/[facility]/ZIP Co de Phone Number [facility] CLIA # [id number] [address] [place] [address] * MAGNESIUM LEVEL (12/07/2022 3:30 AM SITE IDENTIFICATION SPECIALIST) MAGNESIUM 1.9 1.6 - 2.4 mg/dL 12/07/2022 5:41 AM [facility] Blood Collection / Unknown 12/07/2022 3:30 AM SITE IDENTIFICATION SPECIALIST 12/07/2022 5:10 AM SITE IDENTIFICATION SPECIALIST Low Amaya DO CHEMISTRY ORDERABLES Final R esult Performing Organization Address City/[facility]/ZIP Co de Phone Number [facility] CLIA # [id number] [id number] [place] [address] * (ABNORMAL) BASIC METABOLIC PANEL (12/07/2022 3:30 AM SITE IDENTIFICATION SPECIALIST) SODIUM 137 136 - 145 mmol/L 12/07/2022 5:41 AM [facility] [employer] [facility] POTASSIUM 4.2 3.5 - 5.1 mmol/L 12/07/2022 5:41 AM [facility] [employer] [facility] CHLORIDE 103 98 - 107 mmol/L 12/07/2022 5:41 AM [facility] [employer] [facility] CO2 26 22 - 29 mmol/L 12/07/2022 5:41 AM [facility] CALCIUM 9.5 8.8 - 10.2 mg/dL 12/07/2022 5:41 AM [facility] [employer] [facility] BUN 36(H) 8 - 23 mg/dL 12/07/2022 5:41 AM [facility] CREATININE 0.95 0.67 - 1.17 mg/dL 12/07/2022 5:41 AM [facility] GLUCOSE 102(H) 74 - 99 mg/dL 12/07/2022 5:41 AM [facility] GFR >60 >=60 mL/min/1.7 3 sq meter 12/07/2022 5:41 AM [facility] Comment:eGFR calculated with 2020 CKD-EPI equation. Vegetarian diet, extremely high or low muscle mass, and may affect results. Cystatin C with Glomerular Filtration Rate is a suitable alternative for these patients. ANION GAP 8(L) 9 - 20 mmol/L 12/07/2022 5:41 AM [facility] Blood Collection / Unknown 12/07/2022 3:30 AM SITE IDENTIFICATION SPECIALIST 12/07/2022 5:10 AM SITE IDENTIFICATION SPECIALIST Low Amaya DO CHEMISTRY ORDERABLES Final R esult [facility] CLIA # [id number] [address] [place] [address] documented in this encounter Visit Diagnoses Not on filedocumented in this encounter Additional Health Concerns Infection Onset Date Last Indicated Resolved Time C Diff 11/17/2022 11/17/2022 01/16/2023 1:16 AM CDT documented as of this encounter Care Teams Imaging Engineer Relationship Specialty Start Date End Date Shant Ballesteros Jr., MD [address] [place] [address] PCP - General Family Practice 01/19/14 documented as of this encounter
--- OUTSIDE RECORDS SUMMARY | 2025-02-09 19:10 | XMS_ITS | Encounter Summary ---
Author Organization [facility] Address [address] [place] [address] Care Team Providers Care Real Time Trader Name Role Phone Favian Maldonado MD, Shant Humphreys Primary Care Provider Reason for Referral * Outpatient Services (Routine) - Closed Specialty Diagnoses / Procedures Referred By Delfin jerome Referred To Contact Diagnoses Other nonspecific findings on examination of blood(790.99) Procedures MRI BRAIN W WO CONTRAST Shant Ballesteros Jr., MD [address] [place] [address] Phone: tel: fax: [facility] Pre[facility]Registration [facility] CALL TO MAKE APPOINTMENT ONLY [address] [place] [address] Phone: tel: fax: Referral ID Status Reason Start Date Expiration Date V isits Requested Visits Authorized [id number] Closed F [facility] TO SCHEDULE ([facility] 01/18/2014 02/18/2015 1 1 * Outpatient Services (Routine) - Closed Specialty Diagnoses / Procedures Referred By Delfin t Referred To Contact Diagnoses Other nonspecific findings on examination of blood(790.99) Procedures MRA VENOUS HEAD WO CONTRAST Shant Ballesteros Jr., MD [address] [place] [address] Phone: tel: fax: [employer] Pre-Registration [facility] CALL TO MAKE APPOINTMENT ONLY [address] [place] [address] Phone: tel: fax: Referral ID Status Reason Start Date Expiration Date V isits Requested Visits Authorized [id number] Closed F [facility] TO SCHEDULE ([facility]) 01/18/2014 02/18/2015 1 1 Encounter Details Date Type Department Care Team (Late st Contact Info) Description 01/18/2014 Ancillary Orders [facility] Pre-Registration [facility] CALL TO MAKE APPOINTMENT ONLY [address] [place] [facility] [address] Shant Ballesteros Jr., MD [address] [place] [address] Other nonspecific findings on examination of blood(790.99) (Primary Dx) Social History Tobacco Use Types Packs/Day Years Used Date Smoking Tobacco: Never Assessed Sex and Gender Information Value Date Recorded Sex Assigned at Not on file Legal Sex Male 9:52 AM CDT Gender Identity Not on file Sexual Orientation Not on file documented as of this encounter Plan of Treatment Not on file documented as of this encounter Results * MRI BRAIN W WO CONTRAST (02/02/2014 2:56 PM CDT) Anatomical Region Laterality Modality Head Magnetic Resonan ce 02/02/2014 1:52 PM CDT Impressions 02/03/2014 1:55 PM CDT IMPRESSION: See report below. Exam: MRI BRAIN W WO CONTRAST Date/Time of Exam: February 02, 2014 02:56:46 PM Reason For Exam: Other nonspecific findings on examination of blood(790.99). Technique: MRI of the brain was performed prior to and following the administration of intravenous contrast. Contrast: 20 mL of OptiMARK were given. Corpus callosum and pituitary gland are within normal limits. The diffusion-weighted images show no acute ischemic changes. Ventricles are normal in size. No mass is seen. Minimal nonspecific white matter disease is present. Normal major intracranial flow voids are present. There is mild left frontal and ethmoid sinus disease. The postcontrast images show no abnormal enhancement. Impression: No significant abnormality. Tripp - uploaded from [employer]- Narrative Procedure Note Philippe Mendiola MD - 02/03/2014 IMPRESSION IMPRESSION: See report below. Exam: MRI BRAIN W WO CONTRAST Date/Time of Exam: February 02, 2014 02:56:46 PM Reason For Exam: Other nonspecific findings on examination of blood(790.99). Technique: MRI of the brain was performed prior to and following the administration of intravenous contrast. Contrast: 20 mL of OptiMARK were given. Corpus callosum and pituitary gland are within normal limits. The diffusion-weighted images show no acute ischemic changes. Ventricles are normal in size. No mass is seen. Minimal nonspecific white matter disease is present. Normal major intracranial flow voids are present. There is mild left frontal and ethmoid sinus disease. The postcontrast images show no abnormal enhancement. Impression: No significant abnormality. Tripp - uploaded from [employer]- us Shant Ballesteros Jr., MD MR ORDERABLES Final R esult * MRA VENOUS HEAD WO CONTRAST (02/02/2014 2:39 PM CDT) Anatomical Region Laterality Modality Head Magnetic Resonan ce 02/02/2014 1:52 PM CDT Impressions 02/03/2014 1:55 PM CDT IMPRESSION: See report below. Exam: MRA VENOUS HEAD WO CONTRAST Date/Time of Exam: February 02, 2014 02:39:15 PM Reason For Exam: Other nonspecific findings on examination of blood(790.99). Technique: MRA VENOUS HEAD WO CONTRAST The superior sagittal sinus, vein of Javier, straight sinus, both transverse sinuses, sigmoid sinuses and internal jugular veins are patent. Impression: Unremarkable exam. CHRIS/nikki - uploaded from [employer] - Narrative Procedure Note Philippe Mendiola MD - 02/03/2014 IMPRESSION IMPRESSION: See report below. Exam: MRA VENOUS HEAD WO CONTRAST Date/Time of Exam: February 02, 2014 02:39:15 PM Reason For Exam: Other nonspecific findings on examination of blood(790.99). Technique: MRA VENOUS HEAD WO CONTRAST The superior sagittal sinus, vein of Javier, straight sinus, both transverse sinuses, sigmoid sinuses and internal jugular veins are patent. Impression: Unremarkable exam. MWKleber/nikki - uploaded from [employer] - us Shant Ballesteros Jr., MD MR ORDERABLES Final R esult documented in this encounter Visit Diagnoses Diagnosis Other nonspecific findings on examination of blood(790.99)- Primary Other nonspecific findings on examination of blood Other nonspecific findings on examination of blood(790.99) Other nonspecific findings on examination of blood Other nonspecific findings on examination of blood(790.99) Other nonspecific findings on examination of blood documented in this encounter Care Teams Real Time Trader Relationship Specialty Start Date End Date Shant Ballesteros Jr., MD [address] [place] [address] PCP - General Family Practice 01/19/14 documented as of this encounter
--- OUTSIDE RECORDS SUMMARY | 2025-02-09 19:10 | XMS_ITS | Encounter Summary ---
Author Organization [employer] Address 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 Gender Identity Not on file Sexual Orientation Not on file documented as of this encounter Plan of Treatment Not on file documented as of this encounter Procedures Procedure Name Priority Date/Time Associated Diagnosis Comments PHOSPHORUS Routine 12/12/2022 3:15 AM CDT MAGNESIUM LEVEL Routine 12/12/2022 3:15 AM CDT BASIC METABOLIC PANEL Routine 12/12/2022 3:15 AM CDT documented in this encounter Results * PHOSPHORUS (12/12/2022 3:15 AM CDT) PHOSPHORUS 3.6 2.5 - 4.5 mg/dL 12/12/2022 5:57 AM CDT [facility] Blood Collection / Unknown 12/12/2022 3:15 AM CDT 12/12/2022 5:23 AM CDT Low L Perry DO CHEMISTRY ORDERABLES Final R esult Performing Organization Address [facility] de Phone Number [facility] CLIA # [id number] [address] [place] [address] * MAGNESIUM LEVEL (12/12/2022 3:15 AM CDT) MAGNESIUM 1.9 1.6 - 2.4 mg/dL 12/12/2022 5:57 AM CDT [facility] Blood Collection / Unknown 12/12/2022 3:15 AM CDT 12/12/2022 5:23 AM CDT Low Amaya CHEMISTRY ORDERABLES Final R esult Performing Organization Address [facility] de Phone Number [facility] CLIA # [id number] [address] [place] [address] * (ABNORMAL) BASIC METABOLIC PANEL (12/12/2022 3:15 AM CDT) SODIUM 135(L) 136 - 145 mmol/L 12/12/2022 5:57 AM CDT [facility] POTASSIUM 4.7 3.5 - 5.1 mmol/L 12/12/2022 5:57 AM CDT [facility] CHLORIDE 101 98 - 107 mmol/L 12/12/2022 5:57 AM CDT [facility] CO2 24 22 - 29 mmol/L 12/12/2022 5:57 AM CDT [facility] CALCIUM 10.0 8.8 - 10.2 mg/dL 12/12/2022 5:57 AM CDT [facility] BUN 42(H) 8 - 23 mg/dL 12/12/2022 5:57 AM CDT [facility] CREATININE 1.00 0.67 - 1.17 mg/dL 12/12/2022 5:57 AM CDT [facility] GLUCOSE 133(H) 74 - 99 mg/dL 12/12/2022 5:57 AM CDT [facility] GFR >60 >=60 mL/min/1.7 3 sq meter 12/12/2022 5:57 AM CDT [facility] Comment:eGFR calculated with 2020 CKD-EPI equation. Vegetarian diet, extremely high or low muscle mass, and may affect results. Cystatin C with Glomerular Filtration Rate is a suitable alternative for these patients. ANION GAP 10 9 - 20 mmol/L 12/12/2022 5:57 AM CDT [facility] Blood Collection / Unknown 12/12/2022 3:15 AM CDT 12/12/2022 5:23 AM CDT Low Amaya DO CHEMISTRY ORDERABLES Final R esult [facility] CLIA # [id number] [facility] [address] documented in this encounter Visit Diagnoses Not on filedocumented in this encounter Additional Health Concerns Infection Onset Date Last Indicated Resolved Time C Diff 11/17/2022 11/17/2022 01/16/2023 1:16 AM CDT documented as of this encounter Care Teams Wheelchair Rental Clerk Relationship Specialty Start Date End Date Shant Ballesteros Jr., MD [address] [place] [address] PCP - General Family Practice 01/19/14 documented as of this encounter
--- OUTSIDE RECORDS SUMMARY | 2025-02-09 19:10 | XMS_ITS | Data Portability ---
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 Plan of Treatment Reminders Order Date Submit Date Provider Last Modified By Organization Details Last Modified Time Details Appointments None recorded. Lab CBC - ordered by Dr. Johnston/ will fax YF 2024 025 [place] [facility], [address] [facility] [address], [address], 13:54:31 CMP, serum or plasma 2024 025 [place] [facility], [address] [facility] [address], [address], 5 15:56:08 estradiol, serum 2024 025 [place] [facility], [address] [place] [address] [address], [address], [place], [address], 5 06:04:35 testosteron e, total, serum 2024 025 [place] [facility], [address] [place] [address] 248, [address], [place], [address], 5 06:04:34 estradiol, serum 2023 024 [place] [facility], [address] [place] [address] 248, [address], [place], [address], 4 07:46:07 testosteron e, total, serum 2023 024 [place] [facility], [address] [facility] [address], [address], [place], [address], 4 07:46:06 CMP, serum or plasma 2023 024 [facility], [address], [address], [place], [address], 4 17:08:[address] referral 2024 025 [facility] 2 Anna MARTINEZ, [address], [address], [place], [address], 5 14:44:32 Procedures None recorded. Surgeries None recorded. Imaging None recorded. Medication Orders oxycodone-a cetaminophe n 5 mg-325 mg tablet 2023 025 [facility], [address], [place], [address], 5 12:36:46 albuterol sulfate HFA 90 mcg/actuati on aerosol inhaler 2023 024 [facility] 15, [address], [place], [address], 4 10:37:46 Patient TargetsNo targets recorded. Patient InstructionsNo instructions recorded. Reason for Referral Processing Manager Referral for N eoplasm of uncertain behavior of skin Referring Physician: Sherlyn Álvarez, Family Medicine, Encounter Date: 10/28/2024 Results Created Date Observation Date Name Description Value Unit Range Abnormal Flag Note LastModifiedBy Organization Detail LastModifiedTime 06/19/20 24 06/19/2024 CMP (MALE ) glucose 184.0 mg/dL 60.0-9 9.0 high Not Available [facility] [address] [facility] [address], [place], [address], 06/19/2024 17:08:26 06/19/20 24 06/19/2024 CMP (MALE ) BUN (blood urea nitrogen) 20.0 mg/dL 10.0-2 6.0 Not Available [facility] [address] [facility] [address] [facility] [address], [place], [address], 06/19/2024 17:08:26 06/19/20 24 06/19/2024 CMP (MALE ) creatinine (serum) 1.1 mg/dL 0.4-1. 5 Not Available [facility] [address] [facility], [place], [address], 06/19/2024 17:08:26 06/19/20 24 06/19/2024 CMP (MALE ) BUN/creatini ne ratio 17.54 ratio Not Available [facility] [address] [facility], [place], [address], 06/19/2024 17:08:26 06/19/20 24 06/19/2024 CMP (MALE ) eGFR calculated 67.7 Not Available [facility] [address] [facility] [address], [place], [address], 06/19/2024 17:08:26 06/19/20 24 06/19/2024 CMP (MALE ) total protein 7.7 g/dL 6.0-8. 5 Not Available [facility] [address] [facility], [place], [address], 06/19/2024 17:08:26 06/19/20 24 06/19/2024 CMP (MALE ) total bilirubin 0.4 mg/dL 0.2-1. 3 Not Available [facility] [address] [facility], [place], [address], 06/19/2024 17:08:26 06/19/20 24 06/19/2024 CMP (MALE ) albumin 4.3 g/dL 3.5-5. 5 Not Available [facility] [address] [facility], [place], [address], 06/19/2024 17:08:26 06/19/20 24 06/19/2024 CMP (MALE ) globulin 3.4 calc Not Available [facility] [address] [facility] [address], [place], [address], 06/19/2024 17:08:26 06/19/20 24 06/19/2024 CMP (MALE ) AST (SGOT) 37.0 U/L 0.0-46 .0 Not Available [facility] [address] [facility] [address], [place], [address], 06/19/2024 17:08:26 06/19/20 24 06/19/2024 CMP (MALE ) altv (SGPT) 25.0 U/L 13.0-6 9.0 normal Not Available [facility] [address] [facility], [place], [address], 06/19/2024 17:08:26 06/19/20 24 06/19/2024 CMP (MALE ) A/G ratio 1.3 ratio Not Available [facility] [address] [facility] [address], [place], [address], 06/19/2024 17:08:26 06/19/20 24 06/19/2024 CMP (MALE ) ALP phos 75.0 U/L 30.0-1 40.0 normal Not Available [facility] [address] [facility], [place], [address], 06/19/2024 17:08:26 06/19/20 24 06/19/2024 CMP (MALE ) calcium 9.9 mg/dL 8.4-10 .5 Not Available [facility] [address] [facility], [place], [address], 06/19/2024 17:08:26 06/19/20 24 06/19/2024 CMP (MALE ) sodium 139.0 mmol/ L 136.0- 145.0 Not Available [facility] [address] [facility], [place], [address], 06/19/2024 17:08:26 06/19/20 24 06/19/2024 CMP (MALE ) potassium 4.4 mmol/ L 3.5-5. 1 Not Available [facility] [address] [facility], [place], [address], 06/19/2024 17:08:26 06/19/20 24 06/19/2024 CMP (MALE ) chloride 108.0 mmol/ L 98.0-1 10.0 normal Not Available [facility] [address] [facility] [address], [place], [address], 06/19/2024 17:08:26 06/19/20 24 06/19/2024 CMP (MALE ) C02 24.0 mmol/ L 22.0-3 1.0 Not Available [facility] [address] [facility], [place], [address], 06/19/2024 17:08:26 06/19/20 24 06/19/2024 CMP (MALE ) anion gap 7.0 calc Not Available [facility] [address] [facility] [address], [place], [address], 06/19/2024 17:08:26 06/19/20 24 06/19/2024 CMP (MALE ) osmolality 293.9 calc Not Available [facility] [address] [facility] [address], [place], [address], 06/19/2024 17:08:26 06/19/20 24 06/20/2024 TESTO STERO NE, TOTAL , MALES (ADUL T), IA testosterone , total, males (adult), ia 725 NG/dL 250-82 7 normal Not Available [facility] [address] [address] [place], [address], 06/20/2024 07:46:06 06/19/20 24 06/20/2024 ESTRA DIOL estradiol 60 pg/mL < or = 39 high Refer ence range estab lishe d on post- puber mayda patie nt popul ation . No pre-p ubert al refer ence range estab lishe d using this assay . For any patie nts for whom low Estra diol level s are antic ipate d (e.g. males , pre-p ubert al child regan and hypog onada l/pos t-men opaus al femal es), the [facility] Insti tute Estra diol, Ultra sensi tive, LCMSM S assay is recom stefani d (orde r code 71789 ). Pleas e note: patie nts being treat ed with the drug fulve stran t (Fasl odex( R)) have demon strat ed signi fican t inter feren ce in immun oassa y metho ds for estra diol measu remen t. The cross react ivity could lead to false ly eleva ramesh estra diol test resul ts leadi ng to an inapp ropri ate clini fawad asses sment of estro gen statu s. [facility] order code 45998 -Estr adiol , Ultra sensi tive LC/MS /MS demon strat es negli gible cross react ivity with fulve stran t. Not Available [facility] [address] [place], [address], 06/20/2024 07:46:07 10/28/19 25 10/28/2024 CBC WBC 7.4 x10 4.5-10 .5 Not Available [facility] [address] [facility] [address], [place], [address], 10/28/2024 13:54:31 10/28/19 25 10/28/2024 CBC RBC 4.30 x10 4.30-5 .90 Not Available [facility] [address] [facility] [address], [place], [address], 10/28/2024 13:54:31 10/28/19 25 10/28/2024 CBC HGB 14.2 g/dL 13.5-1 8.0 Not Available [facility] [address] [facility], [place], [address], 10/28/2024 13:54:31 10/28/19 25 10/28/2024 CBC HCT 42.1 % 35.0-6 0.0 Not Available [facility] [address] [facility], [place], [address], 10/28/2024 13:54:31 10/28/19 25 10/28/2024 CBC MCV 97.9 fL 80.0-9 9.9 Not Available [facility] [address] [facility], [place], [address], 10/28/2024 13:54:31 10/28/19 25 10/28/2024 CBC MCH 33.0 pg 27.0-3 2.0 high Not Available [facility] [address] [facility], [place], [address], 10/28/2024 13:54:31 10/28/19 25 10/28/2024 CBC MCHC 33.7 g/dL 32.0-3 6.0 Not Available [facility] [address] [facility], [place], [address], 10/28/2024 13:54:31 10/28/19 25 10/28/2024 CBC RDW 15.9 % 11.5-1 4.5 high Not Available [facility] [address] [address], [place], [address], 10/28/2024 13:54:31 10/28/1910/28/2024 CBC plt 200.6 x10 150.0- 451.0 Not Available [facility] [address] [address], [place], [address], 10/28/2024 13:54:31 10/28/1910/28/2024 CBC lymphocytes % 17.0 % 20.0-5 0.0 low Not Available [facility] [address] [address], [place], [address], 10/28/2024 13:54:31 10/28/1910/28/2024 CBC granulcytes % 73.0 % 30.0-7 0.0 high Not Available [facility] [address] [address], [place], [address], 10/28/2024 13:54:31 10/28/1910/28/2024 CBC monocytes % 8.7 % 2.0-16 .0 Not Available [facility] [address] [address], [place], [address], 10/28/2024 13:54:31 10/28/1910/28/2024 CBC granulcytes# 5.4 x10 Not Perla ilable [facility] [address] [address], [place], [address], 10/28/2024 13:54:31 10/28/1910/28/2024 CBC lymphocytes # 1.3 x10 Not Available [facility] [address] [address], [place], [address], 10/28/2024 13:54:31 10/28/1910/28/2024 CBC monocytes # 0.7 x10 Not Avai lable [facility] [address] [facility] [address], [place], [address], 10/28/2024 13:54:31 10/28/1910/28/2024 CMP (MALE ) glucose 131.0 mg/dL 60.0-9 9.0 high Not Available [facility] [address] [facility] 1, [place], [address], 10/28/2024 15:56:08 10/28/1910/28/2024 CMP (MALE ) BUN (blood urea nitrogen) 19.0 mg/dL 10.0-2 6.0 Not Available [facility] [address] [facility] [address], [place], [address], 10/28/2024 15:56:08 10/28/1910/28/2024 CMP (MALE ) creatinine (serum) 1.3 mg/dL 0.4-1. 5 Not Available [facility] [address] [facility] [address], [place], [address], 10/28/2024 15:56:08 10/28/1910/28/2024 CMP (MALE ) BUN/creatini ne ratio 14.62 ratio Not Available [facility] [address] [facility] [address], [place], [address], 10/28/2024 15:56:08 10/28/1910/28/2024 CMP (MALE ) eGFR calculated 58.2 Not Available [facility] [address] [facility] [address], [place], [address], 10/28/2024 15:56:08 10/28/1910/28/2024 CMP (MALE ) total protein 7.8 g/dL 6.0-8. 5 Not Available [facility] [address] [facility] [address], [place], [address], 10/28/2024 15:56:08 10/28/19 25 10/28/2024 CMP (MALE ) total bilirubin 0.5 mg/dL 0.2-1. 3 Not Available [facility] [address] [facility] [address], [place], [address], 10/28/2024 15:56:08 10/28/19 25 10/28/2024 CMP (MALE ) albumin 4.5 g/dL 3.5-5. 5 Not Available [facility] [address] [facility] [address], [place], [address], 10/28/2024 15:56:08 10/28/1910/28/2024 CMP (MALE ) globulin 3.3 calc Not Available [facility] [address] [facility] [address], [place], [address], 10/28/2024 15:56:08 10/28/1910/28/2024 CMP (MALE ) AST (SGOT) 26.0 U/L 0.0-46 .0 Not Available [facility] [address] [facility] [address], [place], [address], 10/28/2024 15:56:08 10/28/19 25 10/28/2024 CMP (MALE ) altv (SGPT) 24.0 U/L 13.0-6 9.0 normal Not Available [facility] [address] [facility] [address], [place], [address], 10/28/2024 15:56:08 10/28/1910/28/2024 CMP (MALE ) A/G ratio 1.4 ratio Not Available [facility] [address] [facility] [address], [place], [address], 10/28/2024 15:56:08 10/28/19 25 10/28/2024 CMP (MALE ) ALP phos 61.0 U/L 30.0-1 40.0 normal Not Available [facility] [address] [facility] [address], [place], [address], 10/28/2024 15:56:08 10/28/19 25 10/28/2024 CMP (MALE ) calcium 10.0 mg/dL 8.4-10 .5 Not Available [facility] [address] [facility] [address], [place], [address], 10/28/2024 15:56:08 10/28/19 25 10/28/2024 CMP (MALE ) sodium 140.0 mmol/ L 136.0- 145.0 Not Available [facility] [address] [facility] 1, [place], [address], 10/28/2024 15:56:08 10/28/19 25 10/28/2024 CMP (MALE ) potassium 4.7 mmol/ L 3.5-5. 1 Not Available [facility] [address] [facility] [address], [place], [address], 10/28/2024 15:56:08 10/28/19 25 10/28/2024 CMP (MALE ) chloride 105.0 mmol/ L 98.0-1 10.0 normal Not Available [facility] [address] [facility] [address], [place], [address], 10/28/2024 15:56:08 10/28/1910/28/2024 CMP (MALE ) C02 24.0 mmol/ L 22.0-3 1.0 Not Available [facility] [address] [facility] [address], [place], [address], 10/28/2024 15:56:08 10/28/19 25 10/28/2024 CMP (MALE ) anion gap 11.0 calc Not Available [facility] [address] [facility] [address], [place], [address], 10/28/2024 15:56:08 10/28/19 25 10/28/2024 CMP (MALE ) osmolality 292.9 calc Not Available [facility] [address], [place], [address], 10/28/2024 15:56:08 10/28/19 25 10/29/2024 TESTO STERO NE, TOTAL , MALES (ADUL T), IA testosterone , total, males (adult), ia 102 NG/dL 250-82 7 low In hypog onada l males , Testo stero ne, Total , LC/MS /MS, is the recom stefani d assay due to the dimin ished accur acy of immun oassa y at level s below 250 ng/dL . This test code (1598 3) must be colle cted in a red-t op tube with no gel. Not Available [facility] [address] , [place], [address], 10/29/2024 06:04:34 10/28/19 25 10/29/2024 ESTRA DIOL estradiol 27 pg/mL < or = 39 normal Refer ence range estab lishe d on post- puber mayda patie nt popul ation . No pre-p ubert al refer ence range estab lishe d using this assay . For any patie nts for whom low Estra diol level s are antic ipate d (e.g. males , pre-p ubert al child regan and hypog onada l/pos t-men opaus al femal es), the [facility] Gopal ls Insti tute Estra diol, Ultra sensi tive, LCMSM S assay is recom stefani d (orde r code 41521 ). Chano velasquez note: patie nts being treat ed with the drug fulve stran t (Fasl odex( R)) have demon strat ed signi fican t inter feren ce in immun oassa y metho ds for estra diol measu remen t. The cross react ivity could lead to false ly eleva ramesh estra diol test resul ts leadi ng to an inapp ropri ate clini fawad asses sment of estro gen statu s. [facility] order code [id number] -Estr adiol , Ultra sensi tive LC/MS /MS gloria calle negli gibcayla cross react ivity with tenzin jerome. Not Available [facility] [address] , [place], [address], 10/29/2024 06:04:35 Result Notes None recorded. 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 May need to consider increasin g lisinopri l if higher dose of his other meds are not well tolerated . continue to monitor bp at home.; Recorded 2 9:44AM by Jina Miller Summary; Promoted; acuity set as *; EUGENIA garrett [facility] 3 14:13:19 Insomnia 023372426 Completed 202212/10/2024 Camila garrett [facility], L[facility]LC[facility] 5 14:41:37 Hypercho lesterol emia 15463005 Active 2022 EUGENIA garrett [facility], L[facility] 3 14:27:31 Dermatos is of scalp 937415190 Completed 202212/10/2024 Camila garrett [facility], [facility]neyLC[facility]ney[facility] 5 14:41:10 Hypergly cemia 34221128 Active 2022 EUGENIA garrett [facility], [facility] 3 14:27:24 Obesity 601611233 Active 2022 EUGENIA garrett [facility]. 14:27:40 Gout 11300017 Completed 202312/10/2024 Camila garrett, [facility] 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 14:44:57 Congesti ve heart failure 48606058 Active 2023 Camila garrett [facility], CristoferL.C. 14:46:27 Intestin al obstruct ion 56215709 Completed 202312/10/2024 Camila garrett [facility]. 14:45:07 Obstruct fatemeh sleep apnea syndrome 65272553 Active 2023 Camila garrett [facility] 14:43:22 Acute prostati tis 51528432 Completed 202312/10/2024 Camila garrett [facility], LC[facility]neyL.C. 14:47:39 Cellulit is of toe of right foot Completed 202312/10/2024 Camila garrett [facility], L.L[facility] 5 14:46:59 Onychomy cosis of toenails 121203267 Active 2023 [facility] [place] 14:43:35 Clostrid ioides difficil e infectio n 196388965 Completed 202312/10/2024 [facility] [place] 14:46:20 Syncope 346402964 Completed 202312/10/2024 [facility] [place] 14:43:10 Mild intermit tent asthma 396682365 Active 2023 Camila garrett [facility], DavidCCortney 5 14:44:49 Chronic pain 66086048 Active 2023 [facility] [place] 14:46:45 Neoplasm of uncertai n behavior of skin 06602433 Active 2024 [facility] [place] 14:44:38 Sebaceou s cyst of skin 372809621 Active 2024 Camila garrett [facility], CristoferL.CCortney 14:45:20 Small bowel obstruct ion 099597923 Active 2024 Sherlyn Álvarez MD [address] [place], [address], [facility], CristoferL.CCortney 5 09:14:25 Colostom y present 882185159 Active 2022 EUGENIA garrett [facility], LCortneyL.CCortney 3 14:13:24 Malignan t tumor of colon 608063898 Active 2022 EUGENIA garrett [facility], LCortneyL.CC[facility]ney 3 14:13:08 Pressure injury of buttock 654117980 Completed 202212/10/2024 Camila garrett [facility], DavidCCortney 14:40:59 Neuropat hy 111241539 Active 2022 EUGENIA garrett [facility], DavidCCortney 14:13:11 Pressure injury of sacral region of back stage III Completed 202212/10/2024 Camila garrett [facility], [place] 14:40:43 Problem Notes None recorded. Procedures Surgical History Date Name Laterality Status Provider Name and Address Organization Details Recorded Time 01/09/20 24 Colonoscopy completed [facility] [place] 01/14/2024 08:07:37 correction of scoliosis completed [facility], L[facility] 10/28/2024 12:38:17 arthroplasty of left wrist completed [facility], L.L[facility] 10/28/2024 12:38:36 arthroplasty of left ankle completed [facility], L.L.[facility] 10/28/2024 12:38:51 Colon Surgery completed [facility], LCortneyL.CC[facility]ney 10/28/2024 12:39:43 Back Surgery completed [facility], LCortneyL.CCortney 10/28/2024 12:40:18 lithotripsy completed [facility], LCortneyL.CCortney 10/28/2024 12:40:57 Cataract Surgery completed [facility], LCortneyLCortneyCCortney 10/28/2024 12:41:08 Appendectomy completed [facility] [place], [facility]ney[facility]ney[facility] 06/05/2023 14:12:46 Imaging Results None recorded. Procedure Notes None recorded. Medical Equipment None Reported. Allergies Allergen ID Allergen Name Allergen Category Reaction Reaction Severity Criticality Documentation Date Start Date Code Code System Note Provider Name and Address Organization Details Recorded Time 2185 Demerol medicatio n Not available Not available Not available 01/23/2023 25615 1 RxNorm EUGENIA garrett [facility] 3 11:01:13 29920 meperidin e medicatio n Not available Not available Not available 06/18/2023 6754 RxNorm EUGENIA garrett [facility], L[facility]C. 4 12:13:04 97727 acetamino phen medicatio n Not available Not available Not available 06/18/2023 161 RxNorm EUGENIA garrett [facility], [facility] 4 12:12:26 65460 morphine medicatio n Not available Not available Not available 06/18/2023 7052 RxNorm DINO BRAN gerry [facility], [facility] 3 10:02:08 44381 Eliquis medicatio n headache severe Not available 06/18/2023 08321 36 RxNorm DINO ALVARADOY [facility] [place] 3 10:02:44 Medications Name Sig Start Date Stop Date Status Note LastModified by Organization Details LastModified Time [facility] Lisinopri l 5 mg tablet daily 07/01 completed 0; Recorded 05/18/20 22 9:10AM by Eugenia Welch, Office Visit; Not Available Not Available Not Available Santyl 250 unit/gram topical ointment 01/23 completed Not Available Not Available Not Available ketoconaz ole 2 % shampoo APPLY TO SCALP AND FACE, LET SET 15 MINUTES, THEN RINSE REPEAT 2-3 TIMES A WEEK active Not Available Not Available No t Available clindamyc in HCl 300 mg capsule take 1 capsule BY MOUTH EVERY 8 HOURS 07/01 completed Not Available Not Available Not Available loperamid e 2 mg capsule active Not Available Not Available Not Available atorvasta tin 10 mg tablet 01/23 completed Not Available Not Available Not Available bisoprolo l 10 mg-hydroc hlorothia zide 6.25 mg tablet TAKE TWO TABLETS BY MOUTH DAILY 07/01 completed Not Available Not Available Not Available amiodaron e 200 mg tablet TAKE 2 TABLETS BY MOUTH TWICE DAILY FOR 7 DAYS THEN 1 TABLET TWICE DAILY active Not Available Not Available No t Available hydrocodo ne 5 mg-acetam inophen 325 mg tablet 07/01 completed Not Available Not Available Not Available ondansetr on HCl 8 mg tablet active Not Available Not Available No t Available lisinopri l 20 mg tablet TAKE 1 TABLET BY MOUTH EVERY DAY 01/23 completed Not Available Not Available Not Available lovastati n 40 mg tablet TAKE 1 TABLET BY MOUTH ONCE DAILY active Not Available Not Available No t Available midodrine 5 mg tablet TAKE 2 TABLETS BY MOUTH EVERY DAY 07/01 completed Not Available Not Available Not Available potassium chloride ER 10 mEq tablet,ex tended release TAKE ONE TABLET BY MOUTH DAILY 02/20 completed Not Available Not Available Not Available metronida zole 500 mg tablet take 1/2 tablet BY MOUTH EVERY 8 HOURS FOR FIVE DAYS 01/23 completed Not Available Not Available Not Available melatonin 3 mg tablet 01/23 completed Not Available Not Available Not Available prochlorp erazine maleate 10 mg tablet active Not Available Not Available Not Available ciproflox acin 500 mg tablet TAKE 1 TABLET BY MOUTH TWICE DAILY FOR FIVE DAYS 01/23 completed Not Available Not Available Not Available sulfameth oxazole 800 mg-trimet hoprim 160 mg tablet TAKE 1 TABLET BY MOUTH TWICE DAILY FOR 10 DAYS 02/20 completed Not Available Not Available Not Available tramadol 50 mg tablet TAKE 1 TABLET BY MOUTH EVERY 6 HOURS 07/13 completed Not Available Not Available Not Available vancomyci n 125 mg capsule TAKE 1 CAPSULE BY MOUTH ONCE DAILY active Not Available Not Available No t Available ondansetr on 8 mg disintegr ating tablet DISSOLVE 1/2 TO 1 (ONE-BRYAN F TO ONE) TABLET IN MOUTH EVERY 6 HOURS NEEDED FOR NAUSEA AND VOMITING active Not Available Not Available No t Available bisoprolo l fumarate 10 mg tablet TAKE 1 TABLET BY MOUTH EVERY DAY 01/23 completed Not Available Not Available Not Available oxycodone -acetamin ophen 5 mg-325 mg tablet TAKE 1 TABLET BY MOUTH EVERY 6 HOURS FOR 8 DAYS 10/28 completed Not Available Not Available Not Available famotidin e 20 mg tablet 01/23 completed Not Available Not Available Not Available trazodone 150 mg tablet TAKE 2 TABLETS BY MOUTH ONCE DAILY AT BEDTIME active Not Available Not Available No t Available promethaz ine 25 mg tablet TAKE 1 TABLET BY MOUTH EVERY 6 HOURS NEEDED FOR NAUSEA AND VOMITING active Not Available Not Available No t Available gabapenti n 300 mg capsule TAKE 1 CAPSULE BY MOUTH THREE TIMES DAILY active Not Available Not Available No t Available hydrocort isone 2.5 % topical cream MIX WITH EQUAL PARTS WITH KETOCONA ZOLE CREAM AND APPLY RASH ON FACE, SCALP AND EARS TWICE DAILY WHEN RASH IS PRESENT 05/25 completed Not Available Not Available Not Available monteluka st 10 mg tablet TAKE 1 TABLET BY MOUTH EVERY DAY 01/23 completed Not Available Not Available Not Available allopurin ol 300 mg tablet Take 1 tablet by mouth once daily 2024 active Not Available Not Available Not Avai lable capsaicin 0.025 % topical cream 01/23 completed Not Available Not Available Not Available bisacodyl 5 mg tablet,de layed release 01/23 completed Not Available Not Available Not Available lisinopri l 5 mg tablet TAKE 1 TABLET BY MOUTH EVERY DAY 02/20 completed Not Available Not Available Not Available digoxin 125 mcg (0.125 mg) tablet TAKE 1 TABLET BY MOUTH ONCE DAILY active Not Available Not Available No t Available furosemid e 20 mg tablet TAKE 1 TABLET BY MOUTH ONCE DAILY active Not Available Not Available No t Available epinephri ne 0.3 mg/0.3 mL injection , auto-inje ctor INJECT CONTENTS OF 1 PEN NEEDED FOR ALLERGIC REACTION active Not Available Not Available No t Available testoster one cypionate 200 mg/mL intramusc ular oil INJECT 0.6 ML INTRAMUS CULARLY ONCE A WEEK 07/13 completed Not Available Not Available Not Available levofloxa manjula 500 mg tablet TAKE 1 TABLET BY MOUTH EVERY 24 HOURS 04/21 completed Not Available Not Available Not Available albuterol sulfate HFA 90 mcg/actua tion aerosol inhaler INHALE 2 PUFFS BY MOUTH EVERY 4 HOURS active Not Available Not Available No t Available ketoconaz ole 2 % topical cream MIX WITH EQUAL PARTS WITH HYDROCOR TISONE AND APPLY TO RASH ON FACE, SCALP AND EARS TWICE DAILY NEEDED 05/25 completed Not Available Not Available Not Available ondansetr on 4 mg disintegr ating tablet 01/23 completed Not Available Not Available Not Available cefdinir 300 mg capsule 02/20 completed Not Available Not Available Not Available fluticaso ne propionat e 50 mcg/actua tion nasal spray,ad pension SPRAY TWO SPRAYS IN EACH NOSTRIL DAILY FOR NASAL CONGESTI ON 01/23 completed Not Available Not Available Not Available metoclopr amide 10 mg tablet 01/23 completed Not Available Not Available Not Available amoxicill in 875 mg-potass ium clavulana te 125 mg tablet Take 1 tablet twice a day by oral route for 21 days. 07/13 completed Not Available Not Available Not Available oxycodone 5 mg tablet TAKE 1 TABLET BY MOUTH EVERY 6 HOURS NEEDED FOR PAIN 10/28 completed Not Available Not Available Not Available clindamyc in 1 % lotion APPLY LOTION TOPICALL Y TO AFFECTED AREA TWICE DAILY FOR 14 DAYS active Not Available Not Available No t Available Dakin's Solution 0.5 % apply TO sacral wound TWICE DAILY 04/21 completed Not Available Not Available Not Available testoster one enanthate 200 mg/mL intramusc ular syringe weekly 07/01 completed Recorded 08/20/20 22 4:57PM by Sherlyn Álvarez MD, Office Visit; Not Available Not Available Not Available potassium chloride ER 10 mEq tablet,ex tended release(p art/cryst ) 02/20 completed Not Available Not Available Not Available Florastor 250 mg capsule 01/23 completed Not Available Not Available Not Available tadalafil 10 mg tablet Take 1 tablet every day by oral route as needed. active Not Available Not Available No t Available tadalafil 20 mg tablet TAKE 1 TABLET BY MOUTH ONCE DAILY NEEDED FOR SEXUAL ACTIVITY . TAKE APPROXIM ATELY 30 MINUTES BEFORE SEXUAL ACTIVITY . NO NITROGLY CERIN 01/23 completed Not Available Not Available Not Available metoprolo l tartrate 25 mg tablet TAKE 1 TABLET BY MOUTH EVERY 12 HOURS active Not Available Not Available No t Available bisoprolo l-hydroch lorothiaz kristofer daily 07/01 completed Recorded 08/20/20 4:57PM by Sherlyn Álvarez MD, Office Visit; Refill Quantity : 180; Tablet; Not Available Not Available Not Available lisinopri l daily 07/01 completed VO DC/tg; Recorded 10/03/19 4:33PM by Anton Brown al Summary; Refill Quantity : 0; Not Available Not Available Not Available Trazodone at bedtime 07/01 completed Recorded 08/21/20 2:00PM by Sherlyn Álvarez MD, Office Visit; Refill Quantity : 30; Tablet; Not Available Not Available Not Available Dakin's Solution 0.125 % 01/23 completed Not Available Not Available Not Available Symbicort 80 mcg-4.5 mcg/actua tion HFA aerosol inhaler INHALE TWO INHALATI ONS BY MOUTH TWICE DAILY AT 10 IN THE MORNING AND 10 IN THE EVENING 01/23 completed Not Available Not Available Not Available oxycodone 10 mg tablet TAKE 1 TABLET BY MOUTH EVERY 6 HOURS NEEDED FOR PAIN active Not Available Not Available No t Available Minerin Creme topical 01/23 completed Not Available Not Available Not Available ClearLax 17 gram/dose oral powder USE ONE capful in liquid EVERY DAY as needed for constipa tion FOR 14 DAYS 01/23 completed Not Available Not Available Not Available testoster one 20.25 mg/1.25 gram per pump act.(1.62 %) transderm al gel active Not Available Not Available Not Available Xarelto 20 mg tablet TAKE 1 TABLET BY MOUTH ONCE DAILY active Not Available Not Available No t Available testoster one 1.62 % (20.25 mg/1.25 gram) transderm al gel packet APPLY 1 PACKET TOPICALL Y ONCE DAILY 07/13 completed Not Available Not Available Not Available testoster one 1.62 % (40.5 mg/2.5 gram) transderm al gel packet APPLY 1 PACKET TOPICALL Y ONCE DAILY FOR 30 DAYS active Not Available Not Available No t Available naloxone 4 mg/actuat ion nasal spray 01/23 completed Not Available Not Available Not Available Vitals Date Recorded Body height Respiratory rate Body mass index (BMI) Body weight Body temperature Heart rate Oxygen saturation Oxygen saturation in Arterial blood by Pulse oximetry Systolic blood pressure Diastolic blood pressure Provider Name and Address Organization Details Last Updated DateTime 4 193.04 cm 20 /min 39.4 kg/m2 096979. 93 g 97.2 [degF] 58 /min 92 % 92 % 108 mm[Hg] 76 mm[Hg] EUGENIA IQRA [facility] 4 10:16:19 Date Recorded Body height Body mass index (BMI) Body weight Oxygen saturation Oxygen saturation in Arterial blood by Pulse oximetry Heart rate Respiratory rate Body temperature Systolic blood pressure Diastolic blood pressure Provider Name and Address Organization Details Last Updated DateTime 5 193.04 cm 34.8 kg/m2 240122. 42 g 96 % 96 % 72 /min 18 /min 97.4 [degF] 110 mm[Hg] 72 mm[Hg] Camila Monteiro [facility] 5 12:33:24 Date Recorded Body height Body mass index (BMI) Body weight Body temperature Respiratory rate Heart rate Oxygen saturation Oxygen saturation in Arterial blood by Pulse oximetry Systolic blood pressure Diastolic blood pressure Provider Name and Address Organization Details Last Updated DateTime 5 193.04 cm 34.3 kg/m2 490343. 05 g 97 [degF] 18 /min 76 /min 96 % 96 % 118 mm[Hg] 72 mm[Hg] Tereso Morales [facility] 5 15:23:24 Social History Question Answer Notes LastModified by Organizat ion Details LastModified Time Tobacco Smoking Status Former Smoker Camila Monteiro [facility] 10/28/2024 12:37:38 What Is Your Level Of Caffeine Consumption? None Information not available 06/18/2023 Have You Had Direct Contact, Or Contact During Intimacy, With Monkeypox Rash, Scabs, Or Body Fluids From A Person With Monkeypox? No [email or web address] Information not available 01/08/2023 What Is Your Current Pack Years? [email or web address] Information not available 10/28/2024 What Is Your Relationship Status? Information not available 06/18/2023 Have You Recently Traveled Abroad? No [email or web address] Information not available 01/08/2023 Sex: Unknown Functional Status Question Answer Note LastModified by Organizat ion Details LastModified Time Do you use any illicit or recreational drugs? No Information not available 06/18/2023 What is your level of alcohol consumption? None Information not available 06/18/2023 Mental Status None recorded. Family History Nothing Reported Notes:Cancer: father Diabete s: maternal grandparents Heart disease: maternal grandparents Hypertension: mother Stroke: maternal grandparents Medical History No medical history recorded. Immunizations Vaccine Type Date Status Note Provider Nam e and Address Organization Details Recorded Time Td(adult) unspecified formulation 8 completed Not Available [facility] 10/22/2023 14:53:20 zoster recombinant 1 completed EUGENIA garrett [facility] 07/02/2023 14:28:35 COVID-19, mRNA, LNP-S, PF, 100 mcg/0.5mL dose or 50 mcg/0.25mL dose 1 completed EUGENIA garrett [facility] 07/02/2023 14:28:35 COVID-19, mRNA, LNP-S, PF, 100 mcg/0.5mL dose or 50 mcg/0.25mL dose 1 completed EUGENIA garrett [facility] 07/02/2023 14:28:35 pneumococcal polysaccharide PPV23 5 completed EUGENIA garrett [facility] 07/02/2023 14:28:35 Tdap 2 completed EUGENIA garrett [facility] 07/02/2023 14:28:35 Influenza, split virus, quadrivalent, PF 8 completed EUGENIA garrett [facility] 07/02/2023 14:28:35 Influenza, adjuvanted, quadrivalent, PF 3 completed Sherlyn Álvarez MD [address] [place] [address], [phone], [facility] 07/02/2023 09:42:50 Past Encounters Encounter ID Performer Location Encounter Start Date Encounter Closed Date Diagnosis/Indication Diagnosis SNOMED-CT Code Diagnosis ICD10 Code Diagnosis Note [id number] Mihir Frias DO [facility] ([facility]) [address] [place] [id number] 01/08/2023 09:24:21 01/15/2023 11:43:40 Hospital inpatient stay within past 30 days 6975989019 106 Z76.89 Colostomy present 729117 009 Z93.3 Malignant tumor of colon 596402779 C18.9 Paroxysmal atrial fibrillation 348065480 I48.0 [id number] Sherlyn Álvarez MD [facility] ([facility]) [address] [place] [address] 01/23/2023 10:54:20 01/23/2023 14:55:14 Pressure injury of buttock 259009467 L89.309 Macerated skin 7811362 R 23.8 Malignant tumor of colon 173840342 C18.9 oncology referral to be sent. He had positive lymph nodes. Colostomy present 040421 009 Z93.3 continue home health and ostomy management . Hospital i npatient stay within past 30 days 5701368301 106 Z76.89 Neuropathy 225456082 G62 .9 restart gabapentin . 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 Hypercholesterolemia 136 71244 E78.00 Check lipid panel. Continue statin. Dermatosis of scalp 4026 47003 L98.9 Ketoconazo le continues to work to control his scalp issues. Hyperglycemia 60353444 R 73.9 A1c was checked today and was 5.7%. Active or passive immunization 510380776 Z23 Benign ess ential hypertension 4538803 I10 Colostomy present 430441 009 Z93.3 continue home health and ostomy management . Neuropathy 487882482 G62 .9 restart gabapentin . Body mass index 40+ - severely obese 658314168 Z68.41 [id number] Sherlyn Álvarez MD [facility] ([facility]) [address] [place] [id number] 5 10/22/2023 14:52:41 10/22/2023 15:30:25 Gout 92497878 M10.9 Benign ess ential hypertension 2664096 I10 Colostomy present 265968 009 Z93.3 continue home health and ostomy management . Hypercholesterolemia 136 60420 E78.00 Check lipid panel. Continue statin. Malignant tumor of colon 490920416 C18.9 oncology referral to be sent. He had positive lymph nodes. Body mass index 40+ - severely obese 651808525 Z68.41 Atrial fibrillation 4943 6004 I48.91 Insomnia 364891264 G47.0 0 Refill provided for trazodone. Abnormal gait 10619968 R 26.2 Impaired mobility 133687 05 Z74.09 Dependence on enabling machine or device 465245931 Z99.89 Pressure i njury of sacral region of back 356917995 L89.153 Metastatic malignant neoplasm to liver 30967666 C78.7 Congestive heart failure 32933426 I50.9 Intestinal obstruction 57685248 K56.609 Patient has recovered from his bowel obstructio n. Return to normal follow-ups for his chronic medical issues. [id number] Sherlyn Álvarez MD [facility] ([facility]) [address] [place] [id number] 5 02/21/2024 15:48:07 02/21/2024 16:42:39 Obstructive sleep apnea syndrome 41941297 G47.33 Continue with recommenda tions for BiPAP. Currently no further interventi on is needed to get this done, just waiting on approval. Atrial fibrillation 4943 6004 I48.91 Recommend the patient continue to proceed with Xarelto. Metastatic malignant neoplasm to liver 72984164 C78.7 Patient needs to follow-up with oncology given potential new lesion in his liver. [id number] Sherlyn Álvarez MD [facility] ([facility]) [address] [place] [id number] 02/27/2024 14:39:29 02/27/2024 16:26:16 Dysuria 43683639 R30.0 UA did not demonstrat e findings suggestive of infection. Culture has been ordered. Acute prostatitis 026335 02 N41.0 History is more suggestive of acute prostatiti s based on his symptoms and report of discomfort . Will start antibiotic s for the next 2 weeks. May require longer duration depending on symptoms. [id number] Sherlyn Álvarez MD [facility] ([facility]) [address] [place] [id number] 5 03/24/2024 15:25:48 03/25/2024 09:57:04 Kidney stone 65419444 N20.0 [id number] Sherlyn Álvarez MD [facility] ([facility]) [address] [place] [id number] 5 04/21/2024 12:05:22 04/21/2024 12:45:51 Metastatic malignant neoplasm to liver 85191882 C78.7 Patient is having significan t pain, most likely from his metastasis . Will provide tramadol to help with pain. Will recheck a CEA and see if it has changed prior to his specialist visit. [id number] Sherlyn Álvarez MD [facility] ([facility]) [address] [place] [id number] 5 05/06/2024 14:00:07 05/06/2024 15:23:03 Metastatic malignant neoplasm to liver 16452381 C78.7 Patient has a care team at [facility] and they have a specific plan for the patient. Benign ess ential hypertension 7570428 I10 Controlled Atrial fibrillation 4943 6004 I48.91 Recommend the patient continue to proceed with Xarelto. Congestive heart failure 25896972 I50.9 Managed well on current medication s. Obstructiv e sleep apnea syndrome 77654939 G47.33 Continue with BiPAP. [id number] Tico Andres DO [facility] ([facility]) [address] [place] [id number] 5 05/25/2024 11:44:55 05/25/2024 12:15:43 Cellulitis of toe of right foot 5869345746 L03.031 Mild to moderate. Will start antibiotic s. Counseled on wound care. Counseled on signs symptoms worsening and treatment options. Acute prostatitis 935761 02 N41.0 possible recurrence . abx for cellulitis will treat this. Return to office with no improvemen t or any problems. Go to ER with severe worsening or severe problems. Onychomyco sis of toenails 938158005 B35.1 I counseled on all treatment options. 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 Discussed the potential for reoccurren ce. Syncope 929014934 R55 Further concerns after hospitaliz ation. Mild inter mittent asthma 103969971 J45.20 Fill provided for his albuterol inhaler. Chronic pain 75192711 G8 9.29 8-day supply of his medication s until he sees his oncologist provided. [id number] Sherlyn Álvarez MD [facility] ([facility]) [address] [place] [address] [id number] 5 10/28/2024 12:23:12 10/28/2024 13:03:58 Neoplasm of uncertain behavior of skin 77548503 D48.5 Patient has had a significan t increase in what appears to be sebaceous keratosis. However, during the drastic change I would recommend evaluation by dermatolog y. 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 Patient is not having any new concerns but at risk for rehospital ization. Health Concerns Section Related Observation LastModified by Organization Detai ls LastModified Time None Recorded Concern Status LastModified by Organization Details LastModified Time None Recorded Advance Directives Directive None Recorded Payers Encounter Date Sequence Insurance Name Policy Number Policy Clemons Covered Member ID Clemons Member ID Guarantor Name 06/19/2024 1 [place] - PPO) [id number] Charan T Voss [id number] Charan T Voss 07/13/2024 1 [place] - [place]) [id number] Charan T Voss [id number] Charan T Voss 10/28/2024 1 [place] - [place]) [id number] Charan T Voss [id number] Charan T Voss 10/28/2024 1 [place] - [place]) [id number] Charan T Voss [id number] Charan T Voss 12/11/2024 1 [place] - [place]) [id number] Charan T Voss [id number] Charan T Voss Notes Date Note Type Note Provider Name and Address Organization Details Recorded Time 07/13/2024 text/html This is a 69-year-old gentleman that comes in today for hospital follow-up. Patient was recently admitted after having a syncopal episode at home. The patient was found to have C. difficile infection. The patient states that he has been having massive watery diarrhea approximately about 1 week before his syncopal episode. Patient is currently taking oral vancomycin and his symptoms have resolved. Patient has no acute concerns today. Patient states that things appear to be doing better. The patient states that he needs a refill on his albuterol inhaler that he uses rarely. Patient continues to have pain from his metastasis and needs a refill on his pain medication until he can see oncology again next week. Sherlyn Álvarez MD [address] [place] [address], [phone], [facility] 07/14/2024 10:48:00 10/28/2024 text/html This is a 61-year-old gentleman who comes in today for evaluation. The patient initially made the appointment due to cough and upper respiratory symptoms. However, this has been improving and states he has not been coughing much today. Patient does have mentioned to skin lesions that have presented recently. Patient also believes he has a cyst in the middle of his back. Sherlyn Álvarez MD [address] [place] [address], [phone], [facility] 10/31/2024 23:10:47 12/11/2024 text/html Patient here for 5 day hospital f/up bowel obstruction. Patient states that he is doing well with good bowel movements and no nausea. No other concerns today. Sherlyn Álvarez MD [address] [place] [address], [phone], [facility] 12/19/2024 09:14:59
--- OUTSIDE RECORDS SUMMARY | 2025-02-09 19:10 | XMS_ITS | Encounter Summary ---
Author Organization [facility] Address [address] [place] [address] Care Team Providers Care Hospice Art Therapist Name Role Phone Favian Maldonado MD, Shant Humphreys Primary Care Provider Encounter Details Date Type Department Care Team (Late st Contact Info) Description 12/05/2022 Lab Requisition [facility] [address] [place] [address] Low Amaya, DO [address] [place] [phone] Social History Tobacco Use Types Packs/Day Years Used Date Smoking Tobacco: Never Assessed Sex and Gender Information Value Date Recorded Sex Assigned at Not on file Legal 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 CADET DECK Gender Identity Not on file Sexual Orientation Not on file documented as of this encounter Plan of Treatment Not on file documented as of this encounter Procedures Procedure Name Priority Date/Time Associated Diagnosis Comments PHOSPHORUS Routine 12/05/2022 3:30 AM CADET DECK MAGNESIUM LEVEL Routine 12/05/2022 3:30 AM CADET DECK documented in this encounter Results * MAGNESIUM LEVEL (12/05/2022 3:30 AM CADET DECK) MAGNESIUM 12/05/2022 7:00 AM CADET DECK [facility] Comment: Contaminated specimen, called to [facility] Garcia This is a corrected result. Previous result was 1.7 mg/dL on 12/05/2022 at 0553 CADET DECK Blood Collection / Unknown 12/05/2022 3:30 AM CADET DECK 12/05/2022 5:21 AM CADET DECK Narrative [facility] - 12/05/2022 7:00 AM CADET DECK To be credited Contaminated specimen Low Finley Monique DO CHEMISTRY ORDERABLES Edited Result - Final Performing Organization Address City/[facility]/ZIP Co de Phone Number [facility] CLIA # [id number] [address] [place] [address] * PHOSPHORUS (12/05/2022 3:30 AM CADET DECK) PHOSPHORUS 12/05/2022 7:02 AM CADET DECK [facility] Comment: Contaminated specimen. To be credited, called to [facility] Garcia This is a corrected result. Previous result was 4.6 mg/dL on 12/05/2022 at 0553 [facility] Blood Collection / Unknown 12/05/2022 3:30 AM CADET DECK 12/05/2022 5:21 AM CADET DECK Low Finley Monique DO CHEMISTRY ORDERABLES Edited Result - Final Performing Organization Address [facility] Co de Phone Number [facility] CLIA # [id number] [id number] [place] [address] documented in this encounter Visit Diagnoses Not on filedocumented in this encounter Additional Health Concerns Infection Onset Date Last Indicated Resolved Time C Diff 11/17/2022 11/17/2022 01/16/2023 1:16 AM CDT documented as of this encounter Care Teams Hospice Art Therapist Relationship Specialty Start Date End Date Shant Ballesteros Jr., MD [address] [place] [address] PCP - General Family Practice 01/19/14 documented as of this encounter
--- OUTSIDE RECORDS SUMMARY | 2025-02-09 19:11 | XMS_ITS | Encounter Summary ---
Author Organization [employer] Address 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
--- OUTSIDE RECORDS SUMMARY | 2025-02-09 19:11 | XMS_ITS | Encounter Summary ---
Author Organization [employer] Address [address] [place] [address] Care Team Providers Care Hand Rounder Name Role Phone Favian Maldonado MD, Shant Humphreys Primary Care Provider Encounter Details Date Type Department Care Team (Late st Contact Info) Description 11/25/2022 Lab Requisition [facility] Laboratory Services [address] [place] [address] Andre Mary, MADHU [address] [facility] [address] [place] [address] Social History Tobacco Use Types Packs/Day Years Used Date Smoking Tobacco: Never Assessed Sex and Gender Information Value Date Recorded Sex Assigned at Not on file Legal 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 POT PRESS OPERATOR Gender Identity Not on file Sexual Orientation Not on file documented as of this encounter Plan of Treatment Not on file documented as of this encounter Procedures Procedure Name Priority Date/Time Associated Diagnosis Comments RESPIRATORY PATHOGEN PCR PANEL Routine 11/25/2022 9:47 AM POT PRESS OPERATOR documented in this encounter Results * RESPIRATORY PATHOGEN PCR PANEL (11/25/2022 9:47 AM POT PRESS OPERATOR) Respiratory Pathogen PCR Panel NOT DETECTED No respiratory pathogen nucleic acids detected. 11/25/2022 11:29 AM POT PRESS OPERATOR [facility] [employer] [facility] COVID-19 PCR NOT DETECTED Not Detected 11/25/2022 11:29 AM POT PRESS OPERATOR [facility] Upper Respiratory ENTIRE NASOPHARYNX / Unknown Collection / Unknown 11/25/2022 9:47 AM POT PRESS OPERATOR 11/25/2022 10:36 AM POT PRESS OPERATOR Narrative [facility] - 11/25/2022 11:29 AM POT PRESS OPERATOR The Film Array Respiratory Panel (RP2.1) is a multiplex nucleic acid detection test for 22 targets. Viruses: Adenovirus Coronavirus HKU1, NL63, 229E, and OC43 COVID-19/Severe Acute Respiratory Syndrome Coronavirus 2 Influenza A with the following subtypes: H1, H1-2009, and H3 Influenza B Human Metapneumovirus Parainfluenza virus 1, 2, 3, and 4 Respiratory Syncytial virus (RSV) Rhinovirus/Enterovirus (cannot differentiate due to genetic similarities) Bacteria: Bordetella pertussis Bordetella parapertussis Chlamydophila pneumoniae Mycoplasma pneumoniae Andre Mary SAFETY SUPERVISOR MICROBIOLOGY - GENERAL O RDERABLES Final Result [id number] [address] [place] [address] documented in this encounter Visit Diagnoses Not on filedocumented in this encounter Additional Health Concerns Infection Onset Date Last Indicated Resolved Time C Diff 11/17/2022 11/17/2022 01/16/2023 1:16 AM CDT documented as of this encounter Care Teams Hand Rounder Relationship Specialty Start Date End Date Shant Ballesteros Jr., MD [address] [place] [address] PCP - General Family Practice 01/19/14 documented as of this encounter
--- OUTSIDE RECORDS SUMMARY | 2025-02-09 19:11 | XMS_ITS | Encounter Summary ---
Author Organization [facility] Address [address] [place] [address] Care Team Providers Care Learning Center Coordinator Name Role Phone Favian Maldonado MD, Shant Humphreys Primary Care Provider Encounter Details Date Type Department Care Team (Late st Contact Info) Description 11/24/2022 Lab Requisition [facility] Laboratory Services [address] [place] [address] Andre Mary, MADHU [address] [facility] [address] [place] [address] Social History Tobacco Use Types Packs/Day Years Used Date Smoking Tobacco: Never Assessed Sex and Gender Information Value Date Recorded Sex Assigned at Not on file Legal 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 SALES MARKET LEADER Gender Identity Not on file Sexual Orientation Not on file documented as of this encounter Plan of Treatment Not on file documented as of this encounter Procedures Procedure Name Priority Date/Time Associated Diagnosis Comments URINALYSIS W/REFLEX MICROSCOPIC Stat 11/24/2022 9:45 PM SALES MARKET LEADER documented in this encounter Results * (ABNORMAL) URINALYSIS WITH REFLEX MICROSCOPIC (11/24/2022 9:45 PM SALES MARKET LEADER) COLOR UA Yellow Pale to Dark Yellow 11/24/2022 11:07 PM SALES MARKET LEADER [facility] CLARITY UA Clear Clear 11/24/2022 11:07 PM SALES MARKET LEADER [facility] SPECIFIC GRAVITY UA 1.012 1.003 - 1.035 11/24/2022 11:07 PM [facility] PH UA 5.0 5.0 - 8.0 11/24/2022 11:07 PM [facility] LEUKOCYTE ESTERASE UA Negative Negative 11/24/2022 11:07 PM [facility] NITRITE UA Negative Negative 11/24/2022 11:07 PM [facility] PROTEIN UA Negative Negative 11/24/2022 11:07 PM [facility] GLUCOSE UA Negative Negative 11/24/2022 11:07 PM [facility] KETONES UA Negative Negative 11/24/2022 11:07 PM [facility] UROBILINOGEN UA <2.0 <2.0 mg/dL 11:07 PM [facility] BILIRUBIN UA Negative Negative 11/24/2022 11:07 PM [facility] BLOOD UA 1+(A) Negative 11/24/2022 11:07 PM [facility] WBC UA 0-2 0 - 2 /hpf 11/24/2022 11:07 PM [facility] RBC UA 0-2 0 - 2 /hpf 11/24/2022 11:07 PM [facility] BACTERIA UA Negative Negative /hpf 11/24/2022 11:07 PM [facility] EPITHELIAL CELLS, URINE 0-5 0 - 5 /hpf 11/24/2022 11:07 PM [facility] Urine URINE SPECIMEN OBTAINED BY CLEAN CATCH PROCEDURE / Unknown Collection / Unknown 11/24/2022 9:45 PM SALES MARKET LEADER 11/24/2022 10:55 PM SALES MARKET LEADER us Andre Mary SKIMMER URINE ORDERABLES Final R esult [facility] CLIA # [id number] [address] [id number] documented in this encounter Visit Diagnoses Not on filedocumented in this encounter Additional Health Concerns Infection Onset Date Last Indicated Resolved Time C Diff 11/17/2022 11/17/2022 01/16/2023 1:16 AM CDT documented as of this encounter Care Teams Learning Center Coordinator Relationship Specialty Start Date End Date Shant Ballesteros Jr., MD [address] [place] [address] PCP - General Family Practice 01/19/14 documented as of this encounter
--- OUTSIDE RECORDS SUMMARY | 2025-02-09 19:11 | XMS_ITS | Encounter Summary ---
Author Organization [employer] Address [address] [place] [address] Care Team Providers Care Precision Assembler Name Role Phone Favian Maldonado MD, Shant Humphreys Primary Care Provider Encounter Details Date Type Department Care Team (Late st Contact Info) Description 11/25/2022 Lab Requisition [facility] [address] [place] [address] Esther Sarmiento MD [address] [place] [address] Social History Tobacco Use Types Packs/Day Years Used Date Smoking Tobacco: Never Assessed Sex and Gender Information Value Date Recorded Sex Assigned at Not on file Legal 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 CARTON FILLING MACHINE 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 Gender Identity Not on file Sexual Orientation Not on file documented as of this encounter Plan of Treatment Not on file documented as of this encounter Procedures Procedure Name Priority Date/Time Associated Diagnosis Comments BRAIN NATRIURETIC PEPTIDE, BNP OR PROBNP Routine 11/25/2022 1:40 AM CARTON FILLING MACHINE OPERATOR documented in this encounter Results * (ABNORMAL) BRAIN NATRIURETIC PEPTIDE, BNP OR PROBNP (11/25/2022 1:40 AM CARTON FILLING MACHINE OPERATOR) PROBNP, N TERMINAL 2,221(H) 0 - 125 pg/mL 11/25/2022 6:17 AM CARTON FILLING MACHINE OPERATOR [facility] Blood Collection / Unknown 11/25/2022 1:40 AM CARTON FILLING MACHINE OPERATOR 11/25/2022 6:02 AM CARTON FILLING MACHINE OPERATOR Esther Sarmiento MD CHEMISTRY ORDERABLES Final Resul t Performing Organization Address City/State/[facility] Co de Phone Number [facility] # [id number] [address] [address] [place] [address] documented in this encounter Visit Diagnoses Not on filedocumented in this encounter Additional Health Concerns Infection Onset Date Last Indicated Resolved Time C Diff 11/17/2022 11/17/2022 01/16/2023 1:16 AM CDT documented as of this encounter Care Teams Precision Assembler Relationship Specialty Start Date End Date Shant Ballesteros Jr., MD [address] [place] [address] PCP - General Family Practice 01/19/14 documented as of this encounter
--- OUTSIDE RECORDS SUMMARY | 2025-02-09 19:11 | XMS_ITS | Encounter Summary ---
Author Organization [employer] [facility] Address [address] [place] [address] Care Team Providers Care Mathematician Research Name Role Phone Favian Maldonado MD, Shant Humphreys Primary Care Provider Encounter Details Date Type Department Care Team (Late st Contact Info) Description 12/03/2022 Lab Requisition [facility] Laboratory Services [address] [place] [address] Andre Mary, MADHU [address] [facility] [address] [place] [address] Social History Tobacco Use Types Packs/Day Years Used Date Smoking Tobacco: Never Assessed Sex and Gender Information Value Date Recorded Sex Assigned at Not on file Legal 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 EXECUTIVE PERSONAL ASSISTANT Gender Identity Not on file Sexual Orientation Not on file documented as of this encounter Plan of Treatment Not on file documented as of this encounter Procedures Procedure Name Priority Date/Time Associated Diagnosis Comments CBC WITH DIFFERENTIAL Routine 12/03/2022 2:00 AM EXECUTIVE PERSONAL ASSISTANT TRIGLYCERIDE Routine 12/03/2022 2:00 AM EXECUTIVE PERSONAL ASSISTANT PHOSPHORUS Routine 12/03/2022 2:00 AM EXECUTIVE PERSONAL ASSISTANT MAGNESIUM LEVEL Routine 12/03/2022 2:00 AM EXECUTIVE PERSONAL ASSISTANT COMPREHENSIVE METABOLIC PANEL Routine 12/03/2022 2:00 AM EXECUTIVE PERSONAL ASSISTANT documented in this encounter Results * MAGNESIUM LEVEL (12/03/2022 2:00 AM EXECUTIVE PERSONAL ASSISTANT) MAGNESIUM 1.9 1.6 - 2.4 mg/dL 12/03/2022 7:06 AM [facility] Blood Collection / Unknown 12/03/2022 2:00 AM EXECUTIVE PERSONAL ASSISTANT 12/03/2022 6:33 AM EXECUTIVE PERSONAL ASSISTANT Andre Mary FRONT DESK ATTENDANT CHEMISTRY ORDERABLES Fin al Result Performing Organization Address [facility] de Phone Number [facility] CLIA # [id number] [address] [place], [place] [address] * (ABNORMAL) TRIGLYCERIDE (12/03/2022 2:00 AM EXECUTIVE PERSONAL ASSISTANT) Pathologist [facility] TRIGLYCERIDE 163(H) <150 mg/dL 12/03/2022 7:06 AM [facility] Blood Collection / Unknown 12/03/2022 2:00 AM EXECUTIVE PERSONAL ASSISTANT 12/03/2022 6:33 AM EXECUTIVE PERSONAL ASSISTANT Narrative [facility] - 12/03/2022 7:06 AM EXECUTIVE PERSONAL ASSISTANT TRIGLYCERIDES mg/dL Normal < 150 Borderline High 150 - 199 High 200 - 499 Very High >= 500 Based on AHA/NCEP Guidelines. Andre Mary FRONT DESK ATTENDANT CHEMISTRY ORDERABLES Fin al Result Performing Organization Address [facility] de Phone Number [facility] CLIA # [id number] [address] [facility] [place], [place] [address] * PHOSPHORUS (12/03/2022 2:00 AM EXECUTIVE PERSONAL ASSISTANT) Pathologist [facility] PHOSPHORUS 3.3 2.5 - 4.5 mg/dL 12/03/2022 7:06 AM [facility] Blood Collection / Unknown 12/03/2022 2:00 AM EXECUTIVE PERSONAL ASSISTANT 12/03/2022 6:33 AM EXECUTIVE PERSONAL ASSISTANT us Andre Mary NP CHEMISTRY ORDERABLES Fin al Result [facility] CLIA # [id number] [address] [facility] [place] [address] * (ABNORMAL) CBC WITH DIFFERENTIAL (12/03/2022 2:00 AM EXECUTIVE PERSONAL ASSISTANT) [facility] WBC 6.5 4.8 - 10.8 K/uL 12/03/2022 6:40 AM [facility] RBC 3.05(L) 4.60 - 6.20 M/uL 12/03/2022 6:40 AM [facility] HEMOGLOBIN 9.1(L) 14.0 - 18.0 g/dL 12/03/2022 6:40 AM [facility] HEMATOCRIT 30.4(L) 41.0 - 53.0 % 12/03/2022 6:40 AM [facility] MCV 99.7 84.0 - 103.0 fL 12/03/2022 6:40 AM [facility] MCH 29.8 27.0 - 34.0 pg 12/03/2022 6:40 AM [facility] MCHC 29.9(L) 30.0 - 35.0 g/dL 12/03/2022 6:40 AM [facility] RDW 17.5(H) 11.0 - 14.5 % 12/03/2022 6:40 AM [facility] RDW-STDEV 63.8(H) 37.0 - 54.0 fL 12/03/2022 6:40 AM [facility] PLATELETS 247 140 - 440 K/uL 12/03/2022 6:40 AM [facility] MPV 10.6 8.9 - 12.8 fL 12/03/2022 6:40 AM [facility] NEUTROPHILS 57 42 - 75 % 12/03/2022 6:40 AM [facility] LYMPHOCYTES 19(L) 24 - 44 % 12/03/2022 6:40 AM [facility] MONOCYTES 12(H) 2 - 10 % 12/03/2022 6:40 AM [facility] EOSINOPHILS 11(H) 0 - 7 % 12/03/2022 6:40 AM [facility] BASOPHILS 1 0 - 1 % 12/03/2022 6:40 AM [facility] IMMATURE GRANULOCYTES 1 0 - 2 % 12/03/2022 6:40 AM [facility] NEUTROPHIL ABSOLUTE 3.68 2.00 - 8.00 K/uL 12/03/2022 6:40 AM [facility] LYMPHOCYTE ABSOLUTE 1.22 1.20 - 4.00 K/uL 12/03/2022 6:40 AM [facility] MONOCYTE ABSOLUTE 0.80(H) 0.10 - 0.60 K/uL 12/03/2022 6:40 AM [facility] EOSINOPHIL ABSOLUTE 0.69 0.00 - 0.70 K/uL 12/03/2022 6:40 AM [facility] BASOPHILS ABSOLUTE 0.06 0.00 - 0.20 K/uL 12/03/2022 6:40 AM [facility] IMMATURE GRANULOCYTES ABSOLUTE 0.03 0.00 - 0.10 K/uL 12/03/2022 6:40 AM [facility] Blood Collection / Unknown 12/03/2022 2:00 AM EXECUTIVE PERSONAL ASSISTANT 12/03/2022 6:32 AM [facility] us Andre Mary FRONT DESK ATTENDANT HEMATOLOGY ORDERABLES Fi nal Result [facility] CLIA # [id number] [address] [facility] [place], [place] [id number] * (ABNORMAL) COMPREHENSIVE METABOLIC PANEL (12/03/2022 2:00 AM EXECUTIVE PERSONAL ASSISTANT) [facility] SODIUM 140 136 - 145 mmol/L 12/03/2022 7:06 AM [facility] POTASSIUM 3.5 3.5 - 5.1 mmol/L 12/03/2022 7:06 AM [facility] CHLORIDE 101 98 - 107 mmol/L 12/03/2022 7:06 AM [facility] CO2 31(H) 22 - 29 mmol/L 12/03/2022 7:06 AM [facility] CALCIUM 9.8 8.8 - 10.2 mg/dL 12/03/2022 7:06 AM [facility] BUN 28(H) 8 - 23 mg/dL 12/03/2022 7:06 AM [facility] CREATININE 0.88 0.67 - 1.17 mg/dL 12/03/2022 7:06 AM [facility] GLUCOSE 130(H) 74 - 99 mg/dL 12/03/2022 7:06 AM [facility] TOTAL PROTEIN 6.8 6.4 - 8.3 g/dL 12/03/2022 7:06 AM [facility] ALBUMIN 3.1(L) 3.5 - 5.2 g/dL 12/03/2022 7:06 AM [facility] BILIRUBIN TOTAL 0.3 0.2 - 1.0 mg/dL 12/03/2022 7:06 AM [facility] ALKALINE PHOSPHATASE 104 40 - 129 U/L 12/03/2022 7:06 AM [facility] AST 19 10 - 50 U/L 12/03/2022 7:06 AM [facility] ALT 14 <=50 U/L 12/03/2022 7:06 AM [facility] GFR >60 >=60 mL/min/1.7 3 sq meter 12/03/2022 7:06 AM [facility] Comment:eGFR calculated with 2020 CKD-EPI equation. Vegetarian diet, extremely high or low muscle mass, and may affect results. Cystatin C with Glomerular Filtration Rate is a suitable alternative for these patients. ANION GAP 8(L) 9 - 20 mmol/L 12/03/2022 7:06 AM EXECUTIVE PERSONAL ASSISTANT [facility] Blood Collection / Unknown 12/03/2022 2:00 AM EXECUTIVE PERSONAL ASSISTANT 12/03/2022 6:33 AM EXECUTIVE PERSONAL ASSISTANT us Andre Mary FRONT DESK ATTENDANT CHEMISTRY ORDERABLES Fin al Result [facility] CLIA # [id number] [facility] [address] [place] [address] documented in this encounter Visit Diagnoses Not on filedocumented in this encounter Additional Health Concerns Infection Onset Date Last Indicated Resolved Time C Diff 11/17/2022 11/17/2022 01/16/2023 1:16 AM CDT documented as of this encounter Care Teams Mathematician Research Relationship Specialty Start Date End Date Shant Ballesteros Jr., MD [address] [place] [address] PCP - General Family Practice 01/19/14 documented as of this encounter
--- OUTSIDE RECORDS SUMMARY | 2025-02-09 19:11 | XMS_ITS | Clinical Summary ---
Author Organization [facility] Address [address] [place]: Epic Prelude ADT JUVENAL MAHARAJ [address] Care Team Providers Care Hob Machine Operator Name Role Phone Favian Maldonado MD, Shant Humphreys Primary Care Provider Allergies Active Allergy Reactions Criticality Noted Date Comments Apixaban Headache Low 12/22/2022 Apple Abdominal Pain Low 12/22/2022 Caffeine Abdominal Pain Medium 12/22/2022 Egg Abdominal Pain Low 12/22/2022 Whole eggs only; baked goods are okay House Dust Mite Unknown 12/22/2022 Meperidine Other (See Comments) 02/02/2014 Extreme sedation Morphine Hallucination Low 12/22/2022 Nsaids (Non-Steroidal Anti-Inflammatory Drug) Abdominal Pain Low 12/22/2022 Oats Abdominal Pain Low 12/22/2022 Unclassified Drug Abdominal Pain Low 12/22/2022 ALL BERRIES Medications testosterone cypionate (DEPO-TESTOSTERON E) 200 mg/mL Oil Inject 200 mg by intramuscular injection one time only. Active allopurinoL (ZYLOPRIM) 300 mg tablet Take 1 Tablet (300 mg) by mouth daily at bedtime. 30 Tablet 01/04/20 23 Active atorvastatin (LIPITOR) 10 mg tablet Take 1 Tablet (10 mg) by mouth daily at bedtime. 30 Tablet 01/04/20 23 Active amoxicillin-clavu lanate (AUGMENTIN) 875-125 mg tablet Take 1 Tablet by mouth every 12 hours. 5 Tablet 01/04/20 23 Active acetaminophen (TYLENOL) 325 mg tablet Take 2 Tablets (650 mg) by mouth every 6 hours as needed (mild pain, Temp > or equal to 101F (38.3C)). 120 Tablet 01/04/20 23 Active amiodarone (CORDARONE) 200 mg tablet Take 1 Tablet (200 mg) by mouth daily. 30 Tablet 01/05/20 23 Active capsaicin (ZOSTRIX) 0.025 % Cream Apply to affected area 2 times daily. 120 Gram 01/04/20 23 Active collagenase (SANTYL) 250 unit/gram OintmentIndicatio ns:apply to left gluteal wound daily and moisten a 2x2 or 4x4 to activate the santyl Apply to affected area daily. 90 Gram 01/05/20 23 Active famotidine (PEPCID) 20 mg tablet Take 1 Tablet (20 mg) by mouth 2 times daily. 60 Tablet 01/04/20 Active magnesium hydroxide (MILK OF MAGNESIA) 400 mg/5 mL suspension Take 30 mL by mouth 1 time daily as needed for Constipation. 473 mL 01/04/20 Active melatonin 3 mg Tablet Take 1 Tablet (3 mg) by mouth nightly as needed for Insomnia. 30 Tablet 01/04/20 23 Active midodrine (PROAMATINE) 5 mg tablet Take 1 Tablet (5 mg) by mouth every 8 hours. 90 Tablet 01/04/20 Active mineral oil-white petrolatum-ceresi n (EUCERIN) CreamIndications: BLE Apply 10 Grams to affected area 2 times daily. 454 Gram 1 01/04/20 Active ondansetron (ZOFRAN ODT) 4 mg Tablet, Rapid Dissolve Take 1 Tablet (4 mg) by mouth every 6 hours as needed for Nausea/Emesis. Dissolve tablet on top of tongue, then swallow with saliva. 60 Tablet 01/04/20 Active water sterile irrigation Solution 1,000 mL with oxychlorosene sodium Recon Soln 2 Gram 2 Grams by Irrigation route 1 time daily as needed for Other (See Comment) (dressing changes). 1000 mL 2 01/04/20 Active Saccharomyces boulardii (FLORASTOR) 250 mg Capsule Take 1 Capsule (250 mg) by mouth 2 times daily. 60 Capsule 01/04/20 23 Active rivaroxaban (XARELTO) 20 mg Tablet Take 1 Tablet (20 mg) by mouth daily with supper. Pharmacist to review per anticoagulation protocol 20mg daily for CrCls > 50ml/min 15mg daily for CrCls 30 to 50ml/min CrCls < 30ml/min----xarelt o contraindicated Crushed tablet (via NG or gastric feeding tube) must be given within 4 hours - avoid administration distal to the stomach - can result in reduced absorption 30 Tablet 1 01/04/20 23 Active oxyCODONE (ROXICODONE) 10 mg tabletIndications :Critical illness myopathy Take 1 Tablet (10 mg) by mouth every 6 hours as needed (moderate pain, severe pain). Max Daily Amount: 40 mg 20 Tablet 01/04/20 23 Active naloxone (NARCAN) 4 mg/spray [place], Non-Aerosol EMERGENCY USE ONLY: Administer 1 spray (4 mg) in one nostril one time. May repeat in alternating nostrils every 2-3 min until responsive or EMS arrives. 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 difficile colitis 12/21/2022 Immunizations Immunization Administration Dates Next Due (Ripl)(12 YR UP) COVID-19 VACCINE - EMERGENCY USE AUTHORIZATION, MRNA, [id number](PF) 30 MCG/0.3 ML IM SUSP 11/09/2022 (PNEUMOVAX 23)(50 YRS UP) PN EUMOCOCCAL POLYSACCHARIDE (PPV23) 0.5 ML, IM 08/04/2020 Influenza Vaccine High Dose 65+ Yrs IM 0 Influenza, Unspecified Formulation 08/12/2018 Zoster Vaccine Live SQ 11/12/2020,08/04/2020 Social History Tobacco Use Types Packs/Day Years Used Date Smoking Tobacco: Never Tobacco Cessation:Counseling Given: Not Answered Alcohol Use Standard Drinks/Week Comments Never 0 (1 standard drink = 0.6 oz pur e alcohol) Feeling Safe Answer Date Recorded Are you [...] on file Legal 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 Gender Identity Not on file Sexual Orientation Not on file Last Filed Vital Signs Vital Sign Reading Time Taken Comments Blood Pressure 115/72 01/03/2023 10:10 AM CDT Pulse 70 01/03/2023 10:10 AM CDT Temperature 36.7 C (98 F) 01/03/2023 10:10 AM CDT Respiratory Rate 18 01/03/2023 10:1 0 AM CDT Oxygen Saturation 98% 01/03/2023 10: 10 AM CDT Inhaled Oxygen Concentration - - Weight 123.7 kg (272 lb 9.6 oz) 12/21/2022 9:00 PM CDT Height 193 cm (6' 4 ) 12/21/2022 9:00 PM CDT Body Mass Index 33.18 12/21/2022 9:00 PM CDT Plan of Treatment Health Maintenance Due Date Last Done Comments DTAP/TDAP/TD VACCINES (1 - Tdap) 1974 ZOSTER VACCINE (2 of 3) 01/07/2021 11/12/2020, 08/04 PNEUMOCOCCAL VACCINE 50+ YEA RS (2 of 2 - PCV) 08/04/2021 08/04/2020 INFLUENZA VACCINE (#1) 2024 08/04/2020 COVID-19 Vaccine (2 - season) 05/31/202406/2023 RSV VACCINE (60+ or ) (1 - 1-dose 75+ series) 2030 Insurance [employer] MEDIC[employer] HMO Advance Directives For more information, please contact: [phone] * Full Code (Latest Code Status on File) Date Activated Date Inactivated Comments 12/21/2022 9:43 PM 01/03/2023 3:13 PM Care Teams Hob Machine Operator Relationship Specialty Start Date End Date Shant Ballesteros Jr., MD [address] [place] [address] PCP - General Family Practice 01/19/14
--- OUTSIDE RECORDS SUMMARY | 2025-02-09 19:11 | XMS_ITS | Encounter Summary ---
Author Organization [facility] Address [address] [place] [address] Care Team Providers Care Compliance Engineer Products Name Role Phone Favian Maldonado MD, Shant Humphreys Primary Care Provider Encounter Details Date Type Department Care Team (Late st Contact Info) Description 11/29/2022 Lab Requisition [facility] Laboratory Services [address] [place] [address] Andre Mary, MADHU [address] [facility] [address] [place] [address] Social History Tobacco Use Types Packs/Day Years Used Date Smoking Tobacco: Never Assessed Sex and Gender Information Value Date Recorded Sex Assigned at Not on file Legal 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 EARLY MORNING Gender Identity Not on file Sexual Orientation Not on file documented as of this encounter Plan of Treatment Not on file documented as of this encounter Procedures Procedure Name Priority Date/Time Associated Diagnosis Comments CBC WITH DIFFERENTIAL Routine 11/29/2022 4:15 AM EARLY MORNING documented in this encounter Results * (ABNORMAL) CBC WITH DIFFERENTIAL (11/29/2022 4:15 AM EARLY MORNING) WBC 6.6 4.8 - 10.8 K/uL 11/29/2022 7:02 AM EARLY MORNING [facility] RBC 2.98(L) 4.60 - 6.20 M/uL 11/29/2022 7:02 AM EARLY MORNING [facility] HEMOGLOBIN 9.0(L) 14.0 - 18.0 g/dL 11/29/2022 7:[address] [facility] HEMATOCRIT 29.9(L) 41.0 - 53.0 % 11/29/2022 7:[address] [facility] MCV 100.3 84.0 - 103.0 fL 11/29/2022 7:[address] [facility] MCH 30.2 27.0 - 34.0 pg 11/29/2022 7:[address] [facility] MCHC 30.1 30.0 - 35.0 g/dL 11/29/2022 7:[address] [facility] RDW 18.0(H) 11.0 - 14.5 % 11/29/2022 7:[address] [facility] RDW-STDEV 65.1(H) 37.0 - 54.0 fL 11/29/2022 7:[address] [facility] PLATELETS 226 140 - 440 K/uL 11/29/2022 7:[address] [facility] MPV 10.5 8.9 - 12.8 fL 11/29/2022 7:[address] [facility] NEUTROPHILS 67 42 - 75 % 11/29/2022 7:[address] [facility] LYMPHOCYTES 13(L) 24 - 44 % 11/29/2022 7:[address] [facility] MONOCYTES 13(H) 2 - 10 % 11/29/2022 7:[address] [facility] EOSINOPHILS 6 0 - 7 % 11/29/2022 7:[address] [facility] BASOPHILS 1 0 - 1 % 11/29/2022 7:[address] [facility] IMMATURE GRANULOCYTES 1 0 - 2 % 11/29/2022 7:[address] [facility] NEUTROPHIL ABSOLUTE 4.47 2.00 - 8.00 K/uL 11/29/2022 7:[address] [facility] LYMPHOCYTE ABSOLUTE 0.88(L) 1.20 - 4.00 K/uL 11/29/2022 7:[address] [facility] MONOCYTE ABSOLUTE 0.85(H) 0.10 - 0.60 K/uL 11/29/2022 7:02 AM EARLY MORNING [facility] EOSINOPHIL ABSOLUTE 0.37 0.00 - 0.70 K/uL 11/29/2022 7:[address] [facility] BASOPHILS ABSOLUTE 0.04 0.00 - 0.20 K/uL 11/29/2022 7:[address] [facility] IMMATURE GRANULOCYTES ABSOLUTE 0.03 0.00 - 0.10 K/uL 11/29/2022 7:[address] [facility] Blood Collection / Unknown 11/29/2022 4:15 AM EARLY MORNING 11/29/2022 6:48 AM EARLY MORNING us Andre Mary TIRE MAINTENANCE TECHNICIAN HEMATOLOGY ORDERABLES Fi nal Result [facility] CLIA # [id number] [address] [place] [id number] documented in this encounter Visit Diagnoses Not on filedocumented in this encounter Additional Health Concerns Infection Onset Date Last Indicated Resolved Time C Diff 11/17/2022 11/17/2022 01/16/2023 1:16 AM CDT documented as of this encounter Care Teams Compliance Engineer Products Relationship Specialty Start Date End Date Shant Ballesteros Jr., MD [address] [place] [address] PCP - General Family Practice 01/19/14 documented as of this encounter
--- OUTSIDE RECORDS SUMMARY | 2025-02-09 19:11 | XMS_ITS | Encounter Summary ---
Author Organization [employer] [facility] Address [address] [place] [address] Care Team Providers Care Voice And Data Technician Name Role Phone Favian Maldonado MD, Shant Humphreys Primary Care Provider Encounter Details Date Type Department Care Team (Late st Contact Info) Description 11/22/2022 Lab Requisition [facility] Laboratory Services [address] [place] [address] Low Amaya, DO [address] [place] [address] Social History Tobacco Use Types Packs/Day Years Used Date Smoking Tobacco: Never Assessed Sex and Gender Information Value Date Recorded Sex Assigned at Not on file Legal 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 MEDICATION ASSISTANT Gender Identity Not on file Sexual Orientation Not on file documented as of this encounter Plan of Treatment Not on file documented as of this encounter Procedures Procedure Name Priority Date/Time Associated Diagnosis Comments CBC WITH DIFFERENTIAL Routine 11/22/2022 4:14 AM MEDICATION ASSISTANT documented in this encounter Results * (ABNORMAL) CBC WITH DIFFERENTIAL (11/22/2022 4:14 AM MEDICATION ASSISTANT) WBC 6.6 4.8 - 10.8 K/uL 11/22/2022 7:49 AM MEDICATION ASSISTANT [facility] RBC 2.65(L) 4.60 - 6.20 M/uL 11/22/2022 7:49 AM MEDICATION ASSISTANT [facility] HEMOGLOBIN 7.9(L) 14.0 - 18.0 g/dL 11/22/2022 7:49 AM [facility] HEMATOCRIT 26.8(L) 41.0 - 53.0 % 11/22/2022 7:49 AM [facility] MCV 101.1 84.0 - 103.0 fL 11/22/2022 7:49 AM [facility] MCH 29.8 27.0 - 34.0 pg 11/22/2022 7:49 AM [facility] MCHC 29.5(L) 30.0 - 35.0 g/dL 11/22/2022 7:49 AM [facility] RDW 18.6(H) 11.0 - 14.5 % 11/22/2022 7:49 AM [facility] RDW-STDEV 66.0(H) 37.0 - 54.0 fL 11/22/2022 7:49 AM [facility] PLATELETS 298 140 - 440 K/uL 11/22/2022 7:49 AM [facility] MPV 9.8 8.9 - 12.8 fL 11/22/2022 7:49 AM [facility] NEUTROPHILS 67 42 - 75 % 11/22/2022 7:49 AM [facility] LYMPHOCYTES 14(L) 24 - 44 % 11/22/2022 7:49 AM [facility] MONOCYTES 11(H) 2 - 10 % 11/22/2022 7:49 AM [facility] [employer] [facility] EOSINOPHILS 6 0 - 7 % 11/22/2022 7:49 AM [facility] [employer] [facility] BASOPHILS 1 0 - 1 % 11/22/2022 7:49 AM [facility] IMMATURE GRANULOCYTES 1 0 - 2 % 11/22/2022 7:49 AM [facility] NEUTROPHIL ABSOLUTE 4.40 2.00 - 8.00 K/uL 11/22/2022 7:49 AM [facility] LYMPHOCYTE ABSOLUTE 0.92(L) 1.20 - 4.00 K/uL 11/22/2022 7:49 AM [facility] MONOCYTE ABSOLUTE 0.74(H) 0.10 - 0.60 K/uL 11/22/2022 7:49 AM MEDICATION ASSISTANT [facility] EOSINOPHIL ABSOLUTE 0.40 0.00 - 0.70 K/uL 11/22/2022 7:49 AM MEDICATION ASSISTANT [facility] BASOPHILS ABSOLUTE 0.03 0.00 - 0.20 K/uL 11/22/2022 7:49 AM MEDICATION ASSISTANT [facility] IMMATURE GRANULOCYTES ABSOLUTE 0.07 0.00 - 0.10 K/uL 11/22/2022 7:49 AM MEDICATION ASSISTANT [facility] Blood Collection / Unknown 11/22/2022 4:14 AM MEDICATION ASSISTANT 11/22/2022 7:43 AM MEDICATION ASSISTANT Low Amaya DO HEMATOLOGY ORDERABLES Final Result Performing Organization Address City/State/[place] Co de Phone Number [facility] CLIA # [id number] [facility] [address] documented in this encounter Visit Diagnoses Not on filedocumented in this encounter Additional Health Concerns Infection Onset Date Last Indicated Resolved Time C Diff 11/17/2022 11/17/2022 01/16/2023 1:16 AM CDT documented as of this encounter Care Teams Voice And Data Technician Relationship Specialty Start Date End Date Shant Ballesteros Jr., MD [address] [place] [address] PCP - General Family Practice 01/19/14 documented as of this encounter
--- OUTSIDE RECORDS SUMMARY | 2025-02-09 19:11 | XMS_ITS | Encounter Summary ---
Author Organization [employer] Address [address] [place] [address] Care Team Providers Care Dealer Compliance Representative Name Role Phone Favian Maldonado MD, Shant Humphreys Primary Care Provider Encounter Details Date Type Department Care Team (Late st Contact Info) Description 12/02/[address] Lab Re[address] [facility] Laboratory Services [address] [place] [address] Joelle David MD [address] [facility] [address] [place] [id number] Social History Tobacco Use Types Packs/Day Years Used Date Smoking Tobacco: Never Assessed Sex and Gender Information Value Date Recorded Sex Assigned at Not on file Legal 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 ICE CRUSHER Gender Identity Not on file Sexual Orientation Not on file documented as of this encounter Plan of Treatment Not on file documented as of this encounter Procedures Procedure Name Priority Date/Time Associated Diagnosis Comments C-REACTIVE PROTEIN Routine 12/02/2022 3: 50 AM ICE CRUSHER documented in this encounter Results * (ABNORMAL) C-REACTIVE PROTEIN (12/02/2022 3:50 AM ICE CRUSHER) CRP 19.3(H) 0.0 - 5.0 mg/L 12/02/2022 5:27 AM ICE CRUSHER [facility] Blood Collection / Unknown 12/02/2022 3:50 AM ICE CRUSHER 12/02/2022 5:13 AM ICE CRUSHER Joelle David MD CHEMISTRY ORDERABLES Final Resu lt [facility] # [id number] [address] [facility] [place] [address] documented in this encounter Visit Diagnoses Not on filedocumented in this encounter Additional Health Concerns Infection Onset Date Last Indicated Resolved Time C Diff 11/17/2022 11/17/2022 01/16/2023 1:16 AM CDT documented as of this encounter Care Teams Dealer Compliance Representative Relationship Specialty Start Date End Date Shant Ballesteros Jr., MD [address] [place] [address] PCP - General Family Practice 01/19/14 documented as of this encounter
--- OUTSIDE RECORDS SUMMARY | 2025-02-09 19:11 | XMS_ITS | Encounter Summary ---
Author Organization [employer] [facility] Address [address] [place] [address] Care Team Providers Care Financial Engineer Name Role Phone Favian Maldonado MD, Shant Humphreys Primary Care Provider Encounter Details Date Type Department Care Team (Late st Contact Info) Description 11/24/2022 Lab Requisition [facility] Services [address] [place] [address] [place] [address] Andre Mary, MADHU [address] [facility] [address] [place] [address] Social History Tobacco Use Types Packs/Day Years Used Date Smoking Tobacco: Never Assessed Sex and Gender Information Value Date Recorded Sex Assigned at Not on file Legal 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 SENIOR UX DEVELOPER Gender Identity Not on file Sexual Orientation Not on file documented as of this encounter Plan of Treatment Not on file documented as of this encounter Procedures Procedure Name Priority Date/Time Associated Diagnosis Comments EXTRA TUBE (SST/GOLD) Routine 11/24/2022 7:12 PM SENIOR UX DEVELOPER LACTIC ACID Stat 11/24/2022 7:12 PM SENIOR UX DEVELOPER PROCALCITONIN Stat 11/24/2022 6:37 PM SENIOR UX DEVELOPER CBC WITH DIFFERENTIAL Stat 11/24/2022 6:37 PM SENIOR UX DEVELOPER BLOOD CULTURE Stat 11/24/2022 6:37 PM SENIOR UX DEVELOPER BLOOD CULTURE Stat 11/24/2022 6:37 PM SENIOR UX DEVELOPER COMPREHENSIVE METABOLIC PANEL Stat 11/24/2022 6:37 PM SENIOR UX DEVELOPER documented in this encounter Results * EXTRA TUBE (SST/GOLD) (11/24/2022 7:12 PM SENIOR UX DEVELOPER) Blood Collection / Unknown 11/24/2022 7:12 PM SENIOR UX DEVELOPER 11/24/2022 7:42 PM SENIOR UX DEVELOPER Andre Mary [employer] MATH TEACHER CHEMISTRY ORDERABLES Fin al Result Performing Organization Address [facility] Co de Phone Number [facility] CLIA # [id number] [id number] [place] [address] * LACTIC ACID (11/24/2022 7:12 PM SENIOR UX DEVELOPER) LACTIC ACID 1.0 <=2.0 mmol/L 11/24/2022 7:47 PM SENIOR UX DEVELOPER [facility] Blood Collection / Unknown 11/24/2022 7:12 PM SENIOR UX DEVELOPER 11/24/2022 7:25 PM SENIOR UX DEVELOPER Andre Mary [employer] MATH TEACHER CHEMISTRY ORDERABLES Fin al Result Performing Organization Address [facility] Co de Phone Number [facility] CLIA # [id number] [id number] [place] [address] * PROCALCITONIN (11/24/2022 6:37 PM SENIOR UX DEVELOPER) PROCALCITONIN 0.08 <=0.08 ng/mL 11/24/2022 8:08 PM SENIOR UX DEVELOPER [facility] Blood Collection / Unknown 11/24/2022 6:37 PM SENIOR UX DEVELOPER 11/24/2022 7:25 PM SENIOR UX DEVELOPER Narrative [facility] - 11/24/2022 8:08 PM SENIOR UX DEVELOPER The utility of procalcitonin is limited/NOT recommended in certain populations (e.g. newborns, dialysis/ESRD, patients with recent major surgery/trauma/johnston, liver cirrhosis, viral hepatitis, certain cancers, etc.). Procalcitonin levels MUST be interpreted in the context of the patient's clinical condition and CANNOT be solely relied upon for diagnosis of infection. <0.25 ng/mL: Bacterial infection unlikely, particularly lower respiratory tract infections. <0.5 ng/mL: Low risk for progression to severe sepsis/septic shock. Localized infection possible. Measurements done early (<6 hours) after systemic process starts may still be low. 0.5-2 ng/mL: Moderate risk for progression to severe sepsis/septic shock. >2 ng/mL: High risk for progression to severe sepsis/septic shock. If antibiotics ARE administered, repeat testing is recommended every 2-3 days to help guide antibiotic cessation. Once a decrease of 80% or more has occurred from baseline, discontinuation of antibiotics should strongly be considered in clinically stable patients. Procalcitonin is produced in the setting of systemic inflammation, particularly bacterial infections. It is detectable within 2-4 hours and peaks within 6-24 hours. Andre Mary NP CHEMISTRY ORDERABLES Fin al Result Performing Organization Address [facility]/ZIP Co de Phone Number [facility] CLIA # [id number] [address] [place], [place] [address] * BLOOD CULTURE (11/24/2022 6:37 PM SENIOR UX DEVELOPER) [facility] Signature BLOOD CULTURE No growth 11/29/2022 10:32 PM SENIOR UX DEVELOPER [facility] Blood Collection / Unknown 11/24/2022 6:37 PM SENIOR UX DEVELOPER 11/24/2022 7:25 PM SENIOR UX DEVELOPER Andre Mary NP MICROBIOLOGY - GENERAL O RDERABLES Final Result Performing Organization Address [facility] Co de Phone Number [facility] CLIA # [id number] [address] [place] [address] * BLOOD CULTURE (11/24/2022 6:37 PM SENIOR UX DEVELOPER) Pathologist [facility] BLOOD CULTURE No growth 11/29/2022 10:32 PM SENIOR UX DEVELOPER [facility] Blood Collection / Unknown 11/24/2022 6:37 PM SENIOR UX DEVELOPER 11/24/2022 7:25 PM SENIOR UX DEVELOPER Andre Mary NP MICROBIOLOGY - GENERAL O RDERABLES Final Result [facility] CLIA # [id number] [facility] [address] [address] [place] [address] * (ABNORMAL) CBC WITH DIFFERENTIAL (11/24/2022 6:37 PM SENIOR UX DEVELOPER) [facility] WBC 8.1 4.8 - 10.8 K/uL 11/24/2022 7:42 PM [facility] RBC 2.66(L) 4.60 - 6.20 M/uL 11/24/2022 7:42 PM [facility] HEMOGLOBIN 7.9(L) 14.0 - 18.0 g/dL 11/24/2022 7:42 PM [facility] HEMATOCRIT 27.6(L) 41.0 - 53.0 % 11/24/2022 7:42 PM [facility] MCV 103.8(H) 84.0 - 103.0 fL 11/24/2022 7:42 PM [facility] MCH 29.7 27.0 - 34.0 pg 11/24/2022 7:42 PM [facility] MCHC 28.6(L) 30.0 - 35.0 g/dL 11/24/2022 7:42 PM [facility] RDW 18.6(H) 11.0 - 14.5 % 11/24/2022 7:42 PM [facility] RDW-STDEV 69.4(H) 37.0 - 54.0 fL 11/24/2022 7:42 PM [facility] PLATELETS 248 140 - 440 K/uL 11/24/2022 7:42 PM [facility] MPV 10.3 8.9 - 12.8 fL 11/24/2022 7:42 PM [facility] NEUTROPHILS 73 42 - 75 % 11/24/2022 7:42 PM [facility] LYMPHOCYTES 11(L) 24 - 44 % 11/24/2022 7:42 PM [facility] MONOCYTES 13(H) 2 - 10 % 11/24/2022 7:42 PM [facility] EOSINOPHILS 3 0 - 7 % 11/24/2022 7:42 PM [facility] BASOPHILS 0 0 - 1 % 11/24/2022 7:42 PM [facility] IMMATURE GRANULOCYTES 1 0 - 2 % 11/24/2022 7:42 PM [facility] NEUTROPHIL ABSOLUTE 5.86 2.00 - 8.00 K/uL 11/24/2022 7:42 PM [facility] LYMPHOCYTE ABSOLUTE 0.87(L) 1.20 - 4.00 K/uL 11/24/2022 7:42 PM [facility] MONOCYTE ABSOLUTE 1.02(H) 0.10 - 0.60 K/uL 11/24/2022 7:42 PM [facility] EOSINOPHIL ABSOLUTE 0.21 0.00 - 0.70 K/uL 11/24/2022 7:42 PM [facility] BASOPHILS ABSOLUTE 0.03 0.00 - 0.20 K/uL 11/24/2022 7:42 PM [facility] IMMATURE GRANULOCYTES ABSOLUTE 0.07 0.00 - 0.10 K/uL 11/24/2022 7:42 PM [facility] Blood Collection / Unknown 11/24/2022 6:37 PM SENIOR UX DEVELOPER 11/24/2022 7:25 PM SENIOR UX DEVELOPER Andre Mary NP HEMATOLOGY ORDERABLES Fi nal Result [facility] CLIA # [id number] [address] [address] [place] [address] * (ABNORMAL) COMPREHENSIVE METABOLIC PANEL (11/24/2022 6:37 PM [facility]) SODIUM 144 136 - 145 mmol/L 11/24/2022 8:06 PM [facility] POTASSIUM 4.6 3.5 - 5.1 mmol/L 11/24/2022 8:06 PM [facility] CHLORIDE 105 98 - 107 mmol/L 11/24/2022 8:06 PM [facility] CO2 28 22 - 29 mmol/L 11/24/2022 8:06 PM [facility] CALCIUM 9.4 8.8 - 10.2 mg/dL 11/24/2022 8:06 PM [facility] BUN 42(H) 8 - 23 mg/dL 11/24/2022 8:06 PM [facility] CREATININE 1.50(H) 0.67 - 1.17 mg/dL 11/24/2022 8:06 PM [facility] GLUCOSE 102(H) 74 - 99 mg/dL 11/24/2022 8:06 PM [facility] TOTAL PROTEIN 6.5 6.4 - 8.3 g/dL 11/24/2022 8:06 PM [facility] ALBUMIN 2.9(L) 3.5 - 5.2 g/dL 11/24/2022 8:06 PM [facility] BILIRUBIN TOTAL 0.4 0.2 - 1.0 mg/dL 11/24/2022 8:06 PM [facility] ALKALINE PHOSPHATASE 88 40 - 129 U/L 11/24/2022 8:06 PM [facility] AST 12 10 - 50 U/L 11/24/2022 8:06 PM [facility] ALT 9 <=50 U/L 11/24/2022 8:06 PM [facility] GFR 51(L) >=60 mL/min/1. 73 sq meter 11/24/2022 8:06 PM SENIOR UX DEVELOPER [facility] Comment:eGFR calculated with 2020 CKD-EPI equation. Vegetarian diet, extremely high or low muscle mass, and may affect results. Cystatin C with Glomerular Filtration Rate is a suitable alternative for these patients. ANION GAP 11 9 - 20 mmol/L 11/24/2022 8:06 PM SENIOR UX DEVELOPER [facility] Blood Collection / Unknown 11/24/2022 6:37 PM SENIOR UX DEVELOPER 11/24/2022 7:25 PM SENIOR UX DEVELOPER us Andre Mary [employer] MATH TEACHER CHEMISTRY ORDERABLES Fin al Result [facility] CLIA # [id number] [facility] [address] documented in this encounter Visit Diagnoses Not on filedocumented in this encounter Additional Health Concerns Infection Onset Date Last Indicated Resolved Time C Diff 11/17/2022 11/17/2022 01/16/2023 1:16 AM CDT documented as of this encounter Care Teams Financial Engineer Relationship Specialty Start Date End Date Shant Ballesteros Jr., MD [address] [place] [address] PCP - General Family Practice 01/19/14 documented as of this encounter
--- OUTSIDE RECORDS SUMMARY | 2025-02-09 19:11 | XMS_ITS | Encounter Summary ---
Author Organization [employer] [facility] Address [address] [place] [address] Care Team Providers Care Dice Manager Name Role Phone Favian Maldonado MD, Shant Humphreys Primary Care Provider Encounter Details Date Type Department Care Team (Late st Contact Info) Description 11/17/2022 Lab Requisition [facility] Laboratory Services [address] [place] [address] Andre Mary, MADHU [address] [facility] [address] [place] [address] Social History Tobacco Use Types Packs/Day Years Used Date Smoking Tobacco: Never Assessed Sex and Gender Information Value Date Recorded Sex Assigned at Not on file Legal 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 AUTOMOTIVE ENGINEER Gender Identity Not on file Sexual Orientation Not on file documented as of this encounter Plan of Treatment Not on file documented as of this encounter Procedures Procedure Name Priority Date/Time Associated Diagnosis Comments CBC WITH DIFFERENTIAL Stat 11/17/2022 4:30 AM AUTOMOTIVE ENGINEER TRIGLYCERIDE Stat 11/17/2022 4:30 AM AUTOMOTIVE ENGINEER PHOSPHORUS Stat 11/17/2022 4:30 AM AUTOMOTIVE ENGINEER MAGNESIUM LEVEL Stat 11/17/2022 4:30 AM AUTOMOTIVE ENGINEER COMPREHENSIVE METABOLIC PANEL Routine 11/17/2022 4:30 AM AUTOMOTIVE ENGINEER documented in this encounter Results * TRIGLYCERIDE (11/17/2022 4:30 AM AUTOMOTIVE ENGINEER) TRIGLYCERIDE 103 <150 mg/dL 11/17/2022 5:51 AM AUTOMOTIVE ENGINEER [facility] Blood Collection / Unknown 11/17/2022 4:30 AM AUTOMOTIVE ENGINEER 11/17/2022 5:31 AM AUTOMOTIVE ENGINEER Narrative [facility] - 11/17/2022 5:51 AM AUTOMOTIVE ENGINEER TRIGLYCERIDES mg/dL Normal < 150 Borderline High 150 - 199 High 200 - 499 Very High >= 500 Based on AHA/NCEP Guidelines. Andre Mary DIAMOND CLEAVER CHEMISTRY ORDERABLES Fin al Result Performing Organization Address City/[facility]/ZIP Co de Phone Number [facility] CLIA # [id number] [id number] [place], [place] [id number] * PHOSPHORUS (11/17/2022 4:30 AM AUTOMOTIVE ENGINEER) Pathologist [facility] PHOSPHORUS 3.2 2.5 - 4.5 mg/dL 11/17/2022 5:51 AM AUTOMOTIVE ENGINEER [facility] Blood Collection / Unknown 11/17/2022 4:30 AM AUTOMOTIVE ENGINEER 11/17/2022 5:31 AM AUTOMOTIVE ENGINEER Andre Mary DIAMOND CLEAVER CHEMISTRY ORDERABLES Fin al Result [facility] CLIA # [id number] [address] [facility] [address] [place], [place] [address] * MAGNESIUM LEVEL (11/17/2022 4:30 AM AUTOMOTIVE ENGINEER) MAGNESIUM 2.1 1.6 - 2.4 mg/dL 11/17/2022 5:51 AM AUTOMOTIVE ENGINEER [facility] Blood Collection / Unknown 11/17/2022 4:30 AM AUTOMOTIVE ENGINEER 11/17/2022 5:31 AM AUTOMOTIVE ENGINEER us Andre Mary NP CHEMISTRY ORDERABLES Fin al Result [facility] CLBRYANT # [id number] [address] [facility] [address] [place] [address] * (ABNORMAL) CBC WITH DIFFERENTIAL (11/17/2022 4:30 AM AUTOMOTIVE ENGINEER) [facility] WBC 8.8 4.8 - 10.8 K/uL 11/17/2022 5:58 AM [facility] RBC 2.68(L) 4.60 - 6.20 M/uL 11/17/2022 5:58 AM [facility] HEMOGLOBIN 8.0(L) 14.0 - 18.0 g/dL 11/17/2022 5:58 AM [facility] HEMATOCRIT 27.6(L) 41.0 - 53.0 % 11/17/2022 5:58 AM [facility] MCV 103.0 84.0 - 103.0 fL 11/17/2022 5:58 AM [facility] MCH 29.9 27.0 - 34.0 pg 11/17/2022 5:58 AM [facility] MCHC 29.0(L) 30.0 - 35.0 g/dL 11/17/2022 5:58 AM [facility] RDW 18.1(H) 11.0 - 14.5 % 11/17/2022 5:58 AM [facility] RDW-STDEV 65.9(H) 37.0 - 54.0 fL 11/17/2022 5:58 AM [facility] PLATELETS 296 140 - 440 K/uL 11/17/2022 5:58 AM [facility] MPV 9.6 8.9 - 12.8 fL 11/17/2022 5:58 AM [facility] NEUTROPHILS 67 42 - 75 % 11/17/2022 5:58 AM [facility] LYMPHOCYTES 12(L) 24 - 44 % 11/17/2022 5:58 AM [facility] MONOCYTES 13(H) 2 - 10 % 11/17/2022 5:58 AM [facility] EOSINOPHILS 6 0 - 7 % 11/17/2022 5:58 AM [facility] BASOPHILS 1 0 - 1 % 11/17/2022 5:58 AM [facility] IMMATURE GRANULOCYTES 2 0 - 2 % 11/17/2022 5:58 AM [facility] NEUTROPHIL ABSOLUTE 5.91 2.00 - 8.00 K/uL 11/17/2022 5:58 AM [facility] LYMPHOCYTE ABSOLUTE 1.04(L) 1.20 - 4.00 K/uL 11/17/2022 5:58 AM [facility] MONOCYTE ABSOLUTE 1.10(H) 0.10 - 0.60 K/uL 11/17/2022 5:58 AM [facility] EOSINOPHIL ABSOLUTE 0.56 0.00 - 0.70 K/uL 11/17/2022 5:58 AM [facility] BASOPHILS ABSOLUTE 0.06 0.00 - 0.20 K/uL 11/17/2022 5:58 AM [facility] IMMATURE GRANULOCYTES ABSOLUTE 0.13(H) 0.00 - 0.10 K/uL 11/17/2022 5:58 AM [facility] Blood Collection / Unknown 11/17/2022 4:30 AM AUTOMOTIVE ENGINEER 11/17/2022 5:30 AM [facility] us Andre Mary DIAMOND CLEAVER HEMATOLOGY ORDERABLES Fi nal Result [facility] CLIA # [id number] [address] [address] [place], [place] [id number] * (ABNORMAL) COMPREHENSIVE METABOLIC PANEL (11/17/2022 4:30 AM AUTOMOTIVE ENGINEER) [facility] SODIUM 144 136 - 145 mmol/L 11/17/2022 5:51 AM [facility] POTASSIUM 3.8 3.5 - 5.1 mmol/L 11/17/2022 5:51 AM [facility] CHLORIDE 107 98 - 107 mmol/L 11/17/2022 5:51 AM [facility] CO2 34(H) 22 - 29 mmol/L 11/17/2022 5:51 AM [facility] CALCIUM 9.1 8.8 - 10.2 mg/dL 11/17/2022 5:51 AM [facility] BUN 20 8 - 23 mg/dL 11/17/2022 5:51 AM [facility] CREATININE 1.03 0.67 - 1.17 mg/dL 11/17/2022 5:51 AM [facility] GLUCOSE 151(H) 74 - 99 mg/dL 11/17/2022 5:51 AM [facility] TOTAL PROTEIN 6.5 6.4 - 8.3 g/dL 11/17/2022 5:51 AM [facility] ALBUMIN 2.8(L) 3.5 - 5.2 g/dL 11/17/2022 5:51 AM [facility] BILIRUBIN TOTAL 0.3 0.2 - 1.0 mg/dL 11/17/2022 5:51 AM [facility] ALKALINE PHOSPHATASE 69 40 - 129 U/L 11/17/2022 5:51 AM [facility] AST 12 10 - 50 U/L 11/17/2022 5:51 AM [facility] ALT 10 <=50 U/L 11/17/2022 5:51 AM [facility] GFR >60 >=60 mL/min/1.7 3 sq meter 11/17/2022 5:51 AM [facility] Comment:eGFR calculated with 2020 CKD-EPI equation. Vegetarian diet, extremely high or low muscle mass, and may affect results. Cystatin C with Glomerular Filtration Rate is a suitable alternative for these patients. ANION GAP 3(L) 9 - 20 mmol/L 11/17/2022 5:51 AM AUTOMOTIVE ENGINEER [facility] Blood Collection / Unknown 11/17/2022 4:30 AM AUTOMOTIVE ENGINEER 11/17/2022 5:31 AM AUTOMOTIVE ENGINEER Andre Mary DIAMOND CLEAVER CHEMISTRY ORDERABLES Fin al Result [facility] CLIA # [id number] [address] [address] [place] [address] documented in this encounter Visit Diagnoses Not on filedocumented in this encounter Additional Health Concerns Infection Onset Date Last Indicated Resolved Time C Diff 11/17/2022 11/17/2022 01/16/2023 1:16 AM CDT documented as of this encounter Care Teams Dice Manager Relationship Specialty Start Date End Date Shant Ballesteros Jr., MD [address] [place] [address] PCP - General Family Practice 01/19/14 documented as of this encounter
--- OUTSIDE RECORDS SUMMARY | 2025-02-09 19:11 | XMS_ITS | Clinical Summary ---
Author Organization [facility] Address [address] [place] [address] Phone Care Team Providers Care Assistant Director Of Nursing Name Role Phone Favian Maldonado MD, Shant Humphreys Primary Care Provider Allergies Active Allergy Reactions Criticality Noted Date Comments Meperidine Other (See Comments) 02/02/2014 Extreme sedation Medications methadone (DOLOPHINE) 10 mg Tablet Take 20 mg by mouth every 8 hours. Active gabapentin (NEURONTIN) 300 mg capsule Take 300 mg by mouth 3 times daily. Active allopurinol (ZYLOPRIM) 100 mg tablet Take 100 mg by mouth daily. Active bisoprolol-hydro chlorothiazide (ZIAC) 10-6.25 mg tablet Take 1 Tab by mouth daily. Active lovastatin (MEVACOR) 40 mg tablet Take 40 mg by mouth daily with supper. Active traZODone (DESYREL) 300 mg tablet Take 300 mg by mouth daily at bedtime. Active Social History Tobacco Use Types Packs/Day Years Used Date Smoking Tobacco: Never Assessed Sex and Gender Information Value Date Recorded Sex Assigned at Not on file Legal Sex Male 9:52 AM CDT Gender Identity Not on file Sexual Orientation Not on file Plan of Treatment Health Maintenance Due Date Last Done Comments DTAP/TDAP/TD VACCINES (1 - Tdap) 1974 COLORECTAL SCREENING 02/11/2000 Colorectal Cancer Screening 02/11/2000 FIT-DNA Q 3 years 02/11/2000 FIT/FOBT Q 1 year 02/11/2000 Flex Sig/CT Colonography Q 5 years 02/11/2000 PNEUMOCOCCAL VACCINE 50+ YEARS (1 of 1 - PCV) 02/11/20 05 ZOSTER VACCINE (1 of 2) 2005 INFLUENZA VACCINE (#1) 2024 RSV VACCINE (60+ or ) (1 - 1-dose 75+ series) 2030 Insurance [employer] [id number] HMO Care Teams Assistant Director Of Nursing Relationship Specialty Start Date End Date Shant Ballesteros Jr., MD [address] [place] [address] PCP - General Family Practice 01/19/14
--- OUTSIDE RECORDS SUMMARY | 2025-02-09 19:11 | XMS_ITS | Encounter Summary ---
Author Organization [employer] Address [address] [place] [address] Care Team Providers Care Warp Preparer Name Role Phone Favian Maldonado MD, Shant Humphreys Primary Care Provider Encounter Details Date Type Department Care Team (Late st Contact Info) Description 11/30/2022 Lab Requisition [facility] Laboratory Services [address] [place] [address] [place] [address] Low Amaya, DO [address] [place] [phone] Social History Tobacco Use Types Packs/Day Years Used Date Smoking Tobacco: Never Assessed Sex and Gender Information Value Date Recorded Sex Assigned at Not on file Legal 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 BIOFUELS OPERATIONS MANAGER Gender Identity Not on file Sexual Orientation Not on file documented as of this encounter Plan of Treatment Not on file documented as of this encounter Procedures Procedure Name Priority Date/Time Associated Diagnosis Comments PHOSPHORUS Routine 11/30/2022 4:55 AM BIOFUELS OPERATIONS MANAGER MAGNESIUM LEVEL Routine 11/30/2022 4:55 AM BIOFUELS OPERATIONS MANAGER BASIC METABOLIC PANEL Routine 11/30/2022 4:55 AM BIOFUELS OPERATIONS MANAGER documented in this encounter Results * MAGNESIUM LEVEL (11/30/2022 4:55 AM BIOFUELS OPERATIONS MANAGER) MAGNESIUM 2.0 1.6 - 2.4 mg/dL 11/30/2022 8:00 AM BIOFUELS OPERATIONS MANAGER [facility] Blood Collection / Unknown 11/30/2022 4:55 AM BIOFUELS OPERATIONS MANAGER 11/30/2022 6:21 AM BIOFUELS OPERATIONS MANAGER Low Amaya DO CHEMISTRY ORDERABLES Final R esult Performing Organization Address [facility]/ZIP Co de Phone Number [facility] CLIA # [id number] [address] [address] * PHOSPHORUS (11/30/2022 4:55 AM BIOFUELS OPERATIONS MANAGER) PHOSPHORUS 3.6 2.5 - 4.5 mg/dL 11/30/2022 6:35 AM [facility] Blood Collection / Unknown 11/30/2022 4:55 AM BIOFUELS OPERATIONS MANAGER 11/30/2022 6:21 AM BIOFUELS OPERATIONS MANAGER Low Amaya DO CHEMISTRY ORDERABLES Final R esult Performing Organization Address [facility]/ZIP Co de Phone Number [facility] CLIA # [id number] [address] [address] * (ABNORMAL) BASIC METABOLIC PANEL (11/30/2022 4:55 AM BIOFUELS OPERATIONS MANAGER) SODIUM 140 136 - 145 mmol/L 11/30/2022 6:35 AM [facility] POTASSIUM 4.1 3.5 - 5.1 mmol/L 11/30/2022 6:35 AM [facility] CHLORIDE 101 98 - 107 mmol/L 11/30/2022 6:35 AM [facility] CO2 34(H) 22 - 29 mmol/L 11/30/2022 6:35 AM [facility] CALCIUM 9.8 8.8 - 10.2 mg/dL 11/30/2022 6:35 AM [facility] BUN 31(H) 8 - 23 mg/dL 11/30/2022 6:35 AM [facility] CREATININE 0.99 0.67 - 1.17 mg/dL 11/30/2022 6:35 AM [facility] GLUCOSE 129(H) 74 - 99 mg/dL 11/30/2022 6:35 AM [facility] GFR >60 >=60 mL/min/1.7 3 sq meter 11/30/2022 6:35 AM [facility] Comment:eGFR calculated with 2020 CKD-EPI equation. Vegetarian diet, extremely high or low muscle mass, and may affect results. Cystatin C with Glomerular Filtration Rate is a suitable alternative for these patients. ANION GAP 5(L) 9 - 20 mmol/L 11/30/2022 6:35 AM [facility] Blood Collection / Unknown 11/30/2022 4:55 AM BIOFUELS OPERATIONS MANAGER 11/30/2022 6:21 AM BIOFUELS OPERATIONS MANAGER Low Amaya DO CHEMISTRY ORDERABLES Final R esult [facility] CLIA # [id number] [address] [place] [address] documented in this encounter Visit Diagnoses Not on filedocumented in this encounter Additional Health Concerns Infection Onset Date Last Indicated Resolved Time C Diff 11/17/2022 11/17/2022 01/16/2023 1:16 AM CDT documented as of this encounter Care Teams Warp Preparer Relationship Specialty Start Date End Date Shant Ballesteros Jr., MD [address] [place] [address] PCP - General Family Practice 01/19/14 documented as of this encounter
--- OUTSIDE RECORDS SUMMARY | 2025-02-09 19:11 | XMS_ITS | Encounter Summary ---
Author Organization [employer] Address [address] [place] [address] Care Team Providers Care Health Club Attendant Name Role Phone Favian Maldonado MD, Shant Humphreys Primary Care Provider Encounter Details Date Type Department Care Team (Late st Contact Info) Description 11/26/2022 Lab Requisition [facility] Laboratory Services [address] [place] [address] [place] [address] Low Amaya, DO [address] [place] [address] Social History Tobacco Use Types Packs/Day Years Used Date Smoking Tobacco: Never Assessed Sex and Gender Information Value Date Recorded Sex Assigned at Not on file Legal 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 SLACKLINE OPERATOR Gender Identity Not on file Sexual Orientation Not on file documented as of this encounter Plan of Treatment Not on file documented as of this encounter Procedures Procedure Name Priority Date/Time Associated Diagnosis Comments CBC WITH DIFFERENTIAL Routine 11/26/2022 1:15 AM SLACKLINE OPERATOR TRIGLYCERIDE Routine 11/26/2022 1:15 AM SLACKLINE OPERATOR PHOSPHORUS Routine 11/26/2022 1:15 AM SLACKLINE OPERATOR MAGNESIUM LEVEL Routine 11/26/2022 1:15 AM SLACKLINE OPERATOR COMPREHENSIVE METABOLIC PANEL Routine 11/26/2022 1:15 AM SLACKLINE OPERATOR documented in this encounter Results * (ABNORMAL) TRIGLYCERIDE (11/26/2022 1:15 AM SLACKLINE OPERATOR) TRIGLYCERIDE 172(H) <150 mg/dL 11/26/2022 6:58 AM [facility] Blood Collection / Unknown 11/26/2022 1:15 AM SLACKLINE OPERATOR 11/26/2022 6:01 AM SLACKLINE OPERATOR Narrative [facility] - 11/26/2022 6:58 AM SLACKLINE OPERATOR TRIGLYCERIDES mg/dL Normal < 150 Borderline High 150 - 199 High 200 - 499 Very High >= 500 Based on AHA/NCEP Guidelines. Lwo Amaya DO CHEMISTRY ORDERABLES Final R [facility] Performing Organization Address City/[facility]/ZIP Co de Phone Number [facility] CLIA # [id number] [address] [id number] * PHOSPHORUS (11/26/2022 1:15 AM SLACKLINE OPERATOR) PHOSPHORUS 3.2 2.5 - 4.5 mg/dL 11/26/2022 6:58 AM [facility] Blood Collection / Unknown 11/26/2022 1:15 AM SLACKLINE OPERATOR 11/26/2022 6:01 AM SLACKLINE OPERATOR Low Amaya DO CHEMISTRY ORDERABLES Final R esult [facility] CLIA # [id number] [address] [place], [place] [address] * MAGNESIUM LEVEL (11/26/2022 1:15 AM SLACKLINE OPERATOR) MAGNESIUM 2.0 1.6 - 2.4 mg/dL 11/26/2022 6:58 AM SLACKLINE OPERATOR [facility] Blood Collection / Unknown 11/26/2022 1:15 AM SLACKLINE OPERATOR 11/26/2022 6:01 AM SLACKLINE OPERATOR us Low Amaya DO CHEMISTRY ORDERABLES Final R esult [facility] CLIA # [id number] [address] [facility] [place] [address] * (ABNORMAL) CBC WITH DIFFERENTIAL (11/26/2022 1:15 AM SLACKLINE OPERATOR) [facility] WBC 6.1 4.8 - 10.8 K/uL 11/26/2022 6:14 AM [facility] RBC 2.61(L) 4.60 - 6.20 M/uL 11/26/2022 6:14 AM [facility] HEMOGLOBIN 7.8(L) 14.0 - 18.0 g/dL 11/26/2022 6:14 AM [facility] HEMATOCRIT 26.5(L) 41.0 - 53.0 % 11/26/2022 6:14 AM [facility] MCV 101.5 84.0 - 103.0 fL 11/26/2022 6:14 AM [facility] MCH 29.9 27.0 - 34.0 pg 11/26/2022 6:14 AM [facility] MCHC 29.4(L) 30.0 - 35.0 g/dL 11/26/2022 6:14 AM [facility] RDW 18.2(H) 11.0 - 14.5 % 11/26/2022 6:14 AM [facility] RDW-STDEV 66.1(H) 37.0 - 54.0 fL 11/26/2022 6:14 AM [facility] PLATELETS 222 140 - 440 K/uL 11/26/2022 6:14 AM [facility] MPV 10.6 8.9 - 12.8 fL 11/26/2022 6:14 AM [facility] NEUTROPHILS 63 42 - 75 % 11/26/2022 6:14 AM [facility] LYMPHOCYTES 18(L) 24 - 44 % 11/26/2022 6:14 AM [facility] MONOCYTES 13(H) 2 - 10 % 11/26/2022 6:14 AM [facility] EOSINOPHILS 5 0 - 7 % 11/26/2022 6:14 AM [facility] BASOPHILS 1 0 - 1 % 11/26/2022 6:14 AM [facility] IMMATURE GRANULOCYTES 1 0 - 2 % 11/26/2022 6:14 AM [facility] NEUTROPHIL ABSOLUTE 3.84 2.00 - 8.00 K/uL 11/26/2022 6:14 AM [facility] LYMPHOCYTE ABSOLUTE 1.09(L) 1.20 - 4.00 K/uL 11/26/2022 6:14 AM [facility] MONOCYTE ABSOLUTE 0.79(H) 0.10 - 0.60 K/uL 11/26/2022 6:14 AM [facility] EOSINOPHIL ABSOLUTE 0.32 0.00 - 0.70 K/uL 11/26/2022 6:14 AM [facility] BASOPHILS ABSOLUTE 0.04 0.00 - 0.20 K/uL 11/26/2022 6:14 AM [facility] IMMATURE GRANULOCYTES ABSOLUTE 0.03 0.00 - 0.10 K/uL 11/26/2022 6:14 AM [facility] Blood Collection / Unknown 11/26/2022 1:15 AM SLACKLINE OPERATOR 11/26/2022 6:01 AM [facility] us Low Amaya DO HEMATOLOGY ORDERABLES Final Result [facility] CLIA # [id number] [facility] [address] [place] [address] * (ABNORMAL) COMPREHENSIVE METABOLIC PANEL (11/26/2022 1:15 AM SLACKLINE OPERATOR) [facility] SODIUM 140 136 - 145 mmol/L 11/26/2022 6:58 AM [facility] POTASSIUM 3.9 3.5 - 5.1 mmol/L 11/26/2022 6:58 AM [facility] CHLORIDE 103 98 - 107 mmol/L 11/26/2022 6:58 AM [facility] CO2 30(H) 22 - 29 mmol/L 11/26/2022 6:58 AM [facility] CALCIUM 9.3 8.8 - 10.2 mg/dL 11/26/2022 6:58 AM [facility] BUN 34(H) 8 - 23 mg/dL 11/26/2022 6:58 AM [facility] CREATININE 1.08 0.67 - 1.17 mg/dL 11/26/2022 6:58 AM [facility] GLUCOSE 129(H) 74 - 99 mg/dL 11/26/2022 6:58 AM [facility] TOTAL PROTEIN 6.4 6.4 - 8.3 g/dL 11/26/2022 6:58 AM [facility] ALBUMIN 2.9(L) 3.5 - 5.2 g/dL 11/26/2022 6:58 AM [facility] BILIRUBIN TOTAL 0.3 0.2 - 1.0 mg/dL 11/26/2022 6:58 AM [facility] ALKALINE PHOSPHATASE 86 40 - 129 U/L 11/26/2022 6:58 AM [facility] AST 14 10 - 50 U/L 11/26/2022 6:58 AM [facility] ALT 10 <=50 U/L 11/26/2022 6:58 AM [facility] GFR >60 >=60 mL/min/1.7 3 sq meter 11/26/2022 6:58 AM [facility] Comment:eGFR calculated with 2020 CKD-EPI equation. Vegetarian diet, extremely high or low muscle mass, and may affect results. Cystatin C with Glomerular Filtration Rate is a suitable alternative for these patients. ANION GAP 7(L) 9 - 20 mmol/L 11/26/2022 6:58 AM SLACKLINE OPERATOR [facility] Blood Collection / Unknown 11/26/2022 1:15 AM SLACKLINE OPERATOR 11/26/2022 6:01 AM SLACKLINE OPERATOR Low Amaya DO CHEMISTRY ORDERABLES Final R esult [facility] CLIA # [id number] [facility] [address] documented in this encounter Visit Diagnoses Not on filedocumented in this encounter Additional Health Concerns Infection Onset Date Last Indicated Resolved Time C Diff 11/17/2022 11/17/2022 01/16/2023 1:16 AM CDT documented as of this encounter Care Teams Health Club Attendant Relationship Specialty Start Date End Date Shant Ballesteros Jr., MD [address] [place] [address] PCP - General Family Practice 01/19/14 documented as of this encounter
--- OUTSIDE RECORDS SUMMARY | 2025-02-09 19:11 | XMS_ITS | Encounter Summary ---
Author Organization [facility] Address [address] [place] [address] Care Team Providers Care Thermal Spray Operator Name Role Phone Favian Maldonado MD, Shant Humphreys Primary Care Provider Encounter Details Date Type Department Care Team (Late st Contact Info) Description 11/10/2022 Lab Requisition [facility] Laboratory Services [address] [place] [address] [place] [address] Soni Jeffery MD [address] [place] [address] Social History Tobacco Use Types Packs/Day Years Used Date Smoking Tobacco: Never Assessed Sex and Gender Information Value Date Recorded Sex Assigned at Not on file Legal 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 AIR REDUCTION EQUIPMENT OPERATOR Gender Identity Not on file Sexual Orientation Not on file documented as of this encounter Plan of Treatment Not on file documented as of this encounter Procedures Procedure Name Priority Date/Time Associated Diagnosis Comments CBC WITH DIFFERENTIAL Stat 11/10/2022 2:20 PM AIR REDUCTION EQUIPMENT OPERATOR documented in this encounter Results * (ABNORMAL) CBC WITH DIFFERENTIAL (11/10/2022 2:20 PM AIR REDUCTION EQUIPMENT OPERATOR) WBC 5.2 4.8 - 10.8 K/uL 11/10/2022 3:18 PM AIR REDUCTION EQUIPMENT OPERATOR [facility] RBC 2.60(L) 4.60 - 6.20 M/uL 11/10/2022 3:18 PM AIR REDUCTION EQUIPMENT OPERATOR [facility] HEMOGLOBIN 7.6(L) 14.0 - 18.0 g/dL 11/10/2022 3:18 PM [facility] HEMATOCRIT 25.3(L) 41.0 - 53.0 % 11/10/2022 3:18 PM [facility] MCV 97.3 84.0 - 103.0 fL 11/10/2022 3:18 PM [facility] MCH 29.2 27.0 - 34.0 pg 11/10/2022 3:18 PM [facility] MCHC 30.0 30.0 - 35.0 g/dL 11/10/2022 3:18 PM [facility] RDW 15.8(H) 11.0 - 14.5 % 11/10/2022 3:18 PM [facility] RDW-STDEV 56.3(H) 37.0 - 54.0 fL 11/10/2022 3:18 PM [facility] PLATELETS 249 140 - 440 K/uL 11/10/2022 3:18 PM [facility] MPV 11.0 8.9 - 12.8 fL 11/10/2022 3:18 PM [facility] NEUTROPHILS 62 42 - 75 % 11/10/2022 3:18 PM [facility] LYMPHOCYTES 15(L) 24 - 44 % 11/10/2022 3:18 PM [facility] MONOCYTES 17(H) 2 - 10 % 11/10/2022 3:18 PM [facility] EOSINOPHILS 6 0 - 7 % 11/10/2022 3:18 PM [facility] BASOPHILS 1 0 - 1 % 11/10/2022 3:18 PM [facility] IMMATURE GRANULOCYTES 1 0 - 2 % 11/10/2022 3:18 PM [facility] NEUTROPHIL ABSOLUTE 3.22 2.00 - 8.00 K/uL 11/10/2022 3:18 PM [facility] LYMPHOCYTE ABSOLUTE 0.78(L) 1.20 - 4.00 K/uL 11/10/2022 3:18 PM [facility] MONOCYTE ABSOLUTE 0.87(H) 0.10 - 0.60 K/uL 11/10/2022 3:18 PM AIR REDUCTION EQUIPMENT OPERATOR [facility] EOSINOPHIL ABSOLUTE 0.30 0.00 - 0.70 K/uL 11/10/2022 3:18 PM AIR REDUCTION EQUIPMENT OPERATOR [facility] BASOPHILS ABSOLUTE 0.03 0.00 - 0.20 K/uL 11/10/2022 3:18 PM AIR REDUCTION EQUIPMENT OPERATOR [facility] IMMATURE GRANULOCYTES ABSOLUTE 0.03 0.00 - 0.10 K/uL 11/10/2022 3:18 PM AIR REDUCTION EQUIPMENT OPERATOR [facility] Blood Collection / Unknown 11/10/2022 2:20 PM AIR REDUCTION EQUIPMENT OPERATOR 11/10/2022 3:09 PM AIR REDUCTION EQUIPMENT OPERATOR Soni Jeffery MD HEMATOLOGY ORDERABLES Final Resu lt [facility] CLIA # [id number] [facility] [address] documented in this encounter Visit Diagnoses Not on filedocumented in this encounter Additional Health Concerns Infection Onset Date Last Indicated Resolved Time C Diff 11/17/2022 11/17/2022 01/16/2023 1:16 AM CDT documented as of this encounter Care Teams Thermal Spray Operator Relationship Specialty Start Date End Date Shant Ballesteros Jr., MD [address] [place] [address] PCP - General Family Practice 01/19/14 documented as of this encounter
--- OUTSIDE RECORDS SUMMARY | 2025-02-09 19:11 | XMS_ITS | Encounter Summary ---
Author Organization [employer] Address [address] [place] [address] Care Team Providers Care Continuous Crusher Operator Name Role Phone Favian Maldonado MD, Shant Humphreys Primary Care Provider Encounter Details Date Type Department Care Team (Late st Contact Info) Description 11/23/2022 Lab Requisition [facility] Laboratory Services [address] [place] [address] [place] [address] Low Amaya, DO [address] [place] [phone] Social History Tobacco Use Types Packs/Day Years Used Date Smoking Tobacco: Never Assessed Sex and Gender Information Value Date Recorded Sex Assigned at Not on file Legal 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 HAND CLIPPER Gender Identity Not on file Sexual Orientation Not on file documented as of this encounter Plan of Treatment Not on file documented as of this encounter Procedures Procedure Name Priority Date/Time Associated Diagnosis Comments PHOSPHORUS Routine 11/23/2022 4:30 AM HAND CLIPPER MAGNESIUM LEVEL Routine 11/23/2022 4:30 AM HAND CLIPPER BASIC METABOLIC PANEL Routine 11/23/2022 4:30 AM HAND CLIPPER documented in this encounter Results * PHOSPHORUS (11/23/2022 4:30 AM HAND CLIPPER) PHOSPHORUS 4.1 2.5 - 4.5 mg/dL 11/23/2022 6:08 AM HAND CLIPPER [facility] Blood Collection / Unknown 11/23/2022 4:30 AM HAND CLIPPER 11/23/2022 5:49 AM HAND CLIPPER Low Amaya DO CHEMISTRY ORDERABLES Final R critical access hospital Performing Organization Address [facility]/ZIP Co de Phone Number [facility] CLIA # [id number] [address] [facility] [place] [address] * MAGNESIUM LEVEL (11/23/2022 4:30 AM HAND CLIPPER) MAGNESIUM 1.9 1.6 - 2.4 mg/dL 11/23/2022 6:08 AM [facility] Blood Collection / Unknown 11/23/2022 4:30 AM HAND CLIPPER 11/23/2022 5:49 AM HAND CLIPPER Low Amaya DO CHEMISTRY ORDERABLES Final R esult Performing Organization Address [facility] Co de Phone Number [facility] CLIA # [id number] [address] [address] * (ABNORMAL) BASIC METABOLIC PANEL (11/23/2022 4:30 AM HAND CLIPPER) SODIUM 142 136 - 145 mmol/L 11/23/2022 6:08 AM [facility] POTASSIUM 4.3 3.5 - 5.1 mmol/L 11/23/2022 6:08 AM [facility] Comment:Slightly hemolyzed. Result may be falsely elevated. CHLORIDE 104 98 - 107 mmol/L 11/23/2022 6:08 AM [facility] CO2 30(H) 22 - 29 mmol/L 11/23/2022 6:08 AM [facility] CALCIUM 9.5 8.8 - 10.2 mg/dL 11/23/2022 6:08 AM [facility] BUN 25(H) 8 - 23 mg/dL 11/23/2022 6:08 AM [facility] CREATININE 0.92 0.67 - 1.17 mg/dL 11/23/2022 6:08 AM [facility] GLUCOSE 135(H) 74 - 99 mg/dL 11/23/2022 6:08 AM [facility] GFR >60 >=60 mL/min/1.7 3 sq meter 11/23/2022 6:08 AM [facility] Comment:eGFR calculated with 2020 CKD-EPI equation. Vegetarian diet, extremely high or low muscle mass, and may affect results. Cystatin C with Glomerular Filtration Rate is a suitable alternative for these patients. ANION GAP 8(L) 9 - 20 mmol/L 11/23/2022 6:08 AM [facility] Blood Collection / Unknown 11/23/2022 4:30 AM HAND CLIPPER 11/23/2022 5:49 AM HAND CLIPPER Low Amaya DO CHEMISTRY ORDERABLES Final R esult [facility] CLIA # [id number] [address] [place] [address] documented in this encounter Visit Diagnoses Not on filedocumented in this encounter Additional Health Concerns Infection Onset Date Last Indicated Resolved Time C Diff 11/17/2022 11/17/2022 01/16/2023 1:16 AM CDT documented as of this encounter Care Teams Continuous Crusher Operator Relationship Specialty Start Date End Date Shant Ballesteros Jr., MD [address] [place] [address] PCP - General Family Practice 01/19/14 documented as of this encounter
--- OUTSIDE RECORDS SUMMARY | 2025-02-09 19:11 | XMS_ITS | Encounter Summary ---
Author Organization [employer] [facility] Address [address] [place] [address] Care Team Providers Care Economic Specialist Name Role Phone Favian Maldonado MD, Shant Humphreys Primary Care Provider Encounter Details Date Type Department Care Team (Late st Contact Info) Description 11/26/2022 Lab Requisition [facility] Laboratory Services [address] [place] [address] [place] [address] Low Amaya, DO [address] [place] [address] Social History Tobacco Use Types Packs/Day Years Used Date Smoking Tobacco: Never Assessed Sex and Gender Information Value Date Recorded Sex Assigned at Not on file Legal 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 INSULATOR APPRENTICE Gender Identity Not on file Sexual Orientation Not on file documented as of this encounter Plan of Treatment Not on file documented as of this encounter Procedures Procedure Name Priority Date/Time Associated Diagnosis Comments CALCIUM IONIZED Routine 11/26/2022 6:20 AM INSULATOR APPRENTICE documented in this encounter Results * CALCIUM IONIZED (11/26/2022 6:20 AM INSULATOR APPRENTICE) CALCIUM IONIZED 5.3 4.8 - 5.6 mg/dL 11/27/2022 9:49 AM INSULATOR APPRENTICE [facility] Blood Collection / Unknown 11/26/2022 6:20 AM INSULATOR APPRENTICE 11/26/2022 9:28 AM INSULATOR APPRENTICE Narrative [facility] - 11/27/2022 9:49 AM INSULATOR APPRENTICE Performing Organization Information: Site ID: [id number] Name: [facility] Address: [address] [address] Director: Andrew Alvarado MD us Low Amaya DO CHEMISTRY ORDERABLES Final R esult [facility] documented in this encounter Visit Diagnoses Not on filedocumented in this encounter Additional Health Concerns Infection Onset Date Last Indicated Resolved Time C Diff 11/17/2022 11/17/2022 01/16/2023 1:16 AM CDT documented as of this encounter Care Teams Economic Specialist Relationship Specialty Start Date End Date Shant Ballesteros Jr., MD [address] [place] [address] PCP - General Family Practice 01/19/14 documented as of this encounter
--- OUTSIDE RECORDS SUMMARY | 2025-02-09 19:11 | XMS_ITS | Encounter Summary ---
Author Organization [employer] Address [address] [place] [address] Care Team Providers Care Trust Officer Name Role Phone Favian Maldonado MD, Shant Humphreys Primary Care Provider Encounter Details Date Type Department Care Team (Late st Contact Info) Description 11/21/2022 Lab Requisition [facility] [address] [place] [address] Low Amaya, DO [address] [place] [phone] Social History Tobacco Use Types Packs/Day Years Used Date Smoking Tobacco: Never Assessed Sex and Gender Information Value Date Recorded Sex Assigned at Not on file Legal 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 WEAVE DEFECT CHARTING CLERK Gender Identity Not on file Sexual Orientation Not on file documented as of this encounter Plan of Treatment Not on file documented as of this encounter Procedures Procedure Name Priority Date/Time Associated Diagnosis Comments PHOSPHORUS Routine 11/21/2022 4:40 AM WEAVE DEFECT CHARTING CLERK MAGNESIUM LEVEL Routine 11/21/2022 4:40 AM WEAVE DEFECT CHARTING CLERK BASIC METABOLIC PANEL Routine 11/21/2022 4:40 AM WEAVE DEFECT CHARTING CLERK documented in this encounter Results * MAGNESIUM LEVEL (11/21/2022 4:40 AM WEAVE DEFECT CHARTING CLERK) MAGNESIUM 1.8 1.6 - 2.4 mg/dL 11/21/2022 5:26 AM WEAVE DEFECT CHARTING CLERK [facility] Blood Collection / Unknown 11/21/2022 4:40 AM WEAVE DEFECT CHARTING CLERK 11/21/2022 5:08 AM WEAVE DEFECT CHARTING CLERK Low Amaya DO CHEMISTRY ORDERABLES Final R esult Performing Organization Address [facility]/ZIP Co de Phone Number [facility] CLIA # [id number] [id number] [place] [address] * PHOSPHORUS (11/21/2022 4:40 AM WEAVE DEFECT CHARTING CLERK) PHOSPHORUS 2.8 2.5 - 4.5 mg/dL 11/21/2022 5:26 AM [facility] Blood Collection / Unknown 11/21/2022 4:40 AM WEAVE DEFECT CHARTING CLERK 11/21/2022 5:08 AM WEAVE DEFECT CHARTING CLERK Low Amaya DO CHEMISTRY ORDERABLES Final R esult Performing Organization Address City/[facility]/ZIP Co de Phone Number [facility] CLIA # [id number] [address] [address] * (ABNORMAL) BASIC METABOLIC PANEL (11/21/2022 4:40 AM WEAVE DEFECT CHARTING CLERK) SODIUM 145 136 - 145 mmol/L 11/21/2022 5:26 AM [facility] Xention [facility] POTASSIUM 3.5 3.5 - 5.1 mmol/L 11/21/2022 5:26 AM [facility] CHLORIDE 106 98 - 107 mmol/L 11/21/2022 5:26 AM [facility] CO2 31(H) 22 - 29 mmol/L 11/21/2022 5:26 AM [facility] CALCIUM 9.3 8.8 - 10.2 mg/dL 11/21/2022 5:26 AM [facility] BUN 29(H) 8 - 23 mg/dL 11/21/2022 5:26 AM [facility] CREATININE 0.95 0.67 - 1.17 mg/dL 11/21/2022 5:26 AM [facility] GLUCOSE 136(H) 74 - 99 mg/dL 11/21/2022 5:26 AM [facility] GFR >60 >=60 mL/min/1.7 3 sq meter 11/21/2022 5:26 AM [facility] Comment:eGFR calculated with 2020 CKD-EPI equation. Vegetarian diet, extremely high or low muscle mass, and may affect results. Cystatin C with Glomerular Filtration Rate is a suitable alternative for these patients. ANION GAP 8(L) 9 - 20 mmol/L 11/21/2022 5:26 AM [facility] Blood Collection / Unknown 11/21/2022 4:40 AM WEAVE DEFECT CHARTING CLERK 11/21/2022 5:08 AM WEAVE DEFECT CHARTING CLERK Low Amaya DO CHEMISTRY ORDERABLES Final R esult [facility] CLIA # [id number] [address] [place] [id number] documented in this encounter Visit Diagnoses Not on filedocumented in this encounter Additional Health Concerns Infection Onset Date Last Indicated Resolved Time C Diff 11/17/2022 11/17/2022 01/16/2023 1:16 AM CDT documented as of this encounter Care Teams Trust Officer Relationship Specialty Start Date End Date Shant Ballesteros Jr., MD [address] [place] [id number] PCP - General Family Practice 01/19/14 documented as of this encounter
--- OUTSIDE RECORDS SUMMARY | 2025-02-09 19:11 | XMS_ITS | Patient Health Record ---
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 Name Role Phone Kady Merrill Primary Care Provider [phone] Bala Wilson Unavailable [phone] KADY MERRILL Unavailable Unavailable Migration, Provider Unavailable Unavailable Miki Johnston Unavailable [phone] Tonya Woodruff Unavailable [phone] Allergies Allergen (clinical drug ingredient) Drug/Non Drug Allergy documented on EMR Reaction Allergy Type Onset Date Status Information temporarily unavailable Berries (uncoded) Unknown Allergy Active Information temporarily unavailable Caffeine Unknown Drug Allergy Active Information temporarily unavailable Eggs/Apples/Oats Unknown Drug Allergy Active Information temporarily unavailable Demerol Extreme sedation Drug Allergy Active Information temporarily unavailable Dust Mites Unknown Allergy Active Information temporarily unavailable Eggs or Egg-derived Products Unknown Drug Allergy Active Information temporarily unavailable Hydrocodone Reaction 1:Chest Tightness Drug Allergy 10/17/2023 active Information temporarily unavailable Morphine Hallucinations/p aranoia Drug Allergy Active Information temporarily unavailable NSAIDs abdominal pain Drug Allergy Active Information temporarily unavailable Pollen Unknown Allergy Active Information temporarily unavailable Tomatoes vomiting Allergy Active Results Component Value Reference Range Notes U[place] Without [place], [place] - [id number] Reviewed date:11/05/2024 02:44:16 PM Interpretation: Performing Lab: Notes/Report: Glucose 0 Bili 0 Ketones 0 Sp Nesbit 1.030 Blood 0 pH 5.5 Protein 1+ Urobili 0 Nitrites 0 Leukocytes 0 Reason For Referral No Information Medications Medication SIG (Take, Route, Frequency, Duration) Notes Start Date End Date Status dilTIAZem HCl ER 120 MG 1 capsule Orally Once a day for 30 day(s) Cardiology Active Multivitamin - 1 tablet Orally Once a day Active Testosterone 1.62 % 2 pumps on the skin Once a day for 30 days 11/05/2024 Active Xarelto 15 MG 1 tablet with food Orally Once a day Active Vitamin C 1000 MG 1 tablet Orally Once a day Active Testosterone 20.25 MG/ACT (1.62%) 3 pumps on the skin daily for 30 days 11/27/2024 Active Melatonin 5 MG 1 tablet at bedtime as needed Orally Once a day Active Ventolin HFA 108 (90 Base) MCG/ACT 1 puff as needed Inhalation every 4 hrs Active traZODone HCl 150 MG 2 tablets Orally On ce a day at bedtime for 90 days Active Lovastatin 40 MG 1 tablet with the evening meal Orally Once a day for 30 days Active Testosterone Cypionate 200 MG/ML 1ml Intramuscular once weekly for 30 days Active Loratadine 10 MG 1 tablet Orally Once a day Active Symbicort 160-4.5 MCG/ACT 2 puffs Inhalation Twice a day Dr. Morales Active Lisinopril 5 MG 1 tablet Orally twic e daily for 90 days 05/22/2021 Active Senokot S 8.6-50 MG 1 tablet in the even ing as needed Orally Once a day Active L-Tryptophan 500 MG 1 capsule at bedtime Orally Once a day Active Bisoprolol Fumarate 10 mg TAKE 1 TABLET BY MOUTH EVERY DAY for 90 Active Montelukast Sodium 10 MG 1 tablet Orally Once a day for 30 day(s) 01/18/2022 Active Immunizations Vaccine Route Administration Date Status Comme nts Fluzone HD PF IM Intramuscular 08/04/2020 Administered Influenza (whole), CPT 81589 Inactive Unknown 08/12/2018 Administered Pneumococcal polysaccharide PPV23 IM Intramuscular 08/04/2020 Administered Shingrix IM Intramuscular 08/04/2020 Administered Shingrix Unknown 11/12/2020 Administered Social History Tobacco Use: Social History Observation Description Date Details (start date - stop date) Never Smoker NA - NA Household Question Answer Notes Marital status: Number of adults in household: 2 xTobacco Use/Smoking Question Answer Notes Are you a nonsmoker Alcohol Screen (Audit-C) Question Answer Notes Did you have a drink containing alcohol in the p ast year? 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 Problem 43902685 Calculus of kidn ey (N20.0) Active confirmed Problem Nephrolithiasis (17404585) Nephrolithiasis (N20.0) Active confirmed Problem 80348719 Hypertension, be nign (I10) Active confirmed Problem 28740881 Sleep apnea in a dult (G47.30) Active confirmed Problem Gout (73080748) Gout (M10.9) Active confirmed Problem 213937224 Insomnia, unspecified type (G47.00) Active confirmed Problem Low libido (3548106) Low libido (R68.82) Active confirmed Problem Fatigue (35327126) Fatigue (R53.83) Active conf irmed Problem 11637874 Atrial fibrillat ion, unspecified type (I48.91) Active confirmed Problem 386830703 Seasonal allergi es (J30.2) Active confirmed Problem Hypertension (51877308) Hypertension (I10) Active confirmed Problem 042718475 Uncomplicated asthma, unspecified asthma severity, unspecified whether persistent (J45.909) Active confirmed Problem 309455397 Macrocytosis (D75.89) Active confirmed Problem Obstructive sleep apnea syndrome (14130607) Obstructive sleep apnea (adult) (pediatric) (327.23) 2016 Active confirmed [id number]- Problem Lumbosacral spondylosis without myelopathy (03683199) 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 Active confirmed [id number]- Problem Erectile dysfunction (011225881) Erectile dysfunction (302.72) 2013 Active confirmed [id number]- Problem Adjustment disorder with depressed mood (08330268) Adjustment disorder with depressed mood (309.0) 2009 Problem resolved confirmed [id number]- Problem Hand foot and mouth disease (749346130) Hand, foot, and mouth disease (074.3) 2012 Problem resolved confirmed [id number]- Problem Sebaceous cyst (246708119) Sebaceous cyst (706.2) 2013 Problem resolved confirmed [id number]- Problem Seborrhea (63243099) Seborrhea (706.3) 2013 Problem resolved confirmed [id number]- Problem Pressure ulcer (527792818) Pressure ulcer, other site (707.09) 2017 Problem resolved confirmed Ramon-[id number] [id number]- Problem Fever (191251409) Fever, unspeci fied (780.60) 2011 Problem resolved confirmed [id number]-[id number]- Problem Palpitations (05643500) Palpitations (785.1) 2012 Problem resolved confirmed Ramon-[id number] [id number]- Problem Heartburn (59561730) Heartburn (787.1) 2014 Problem resolved confirmed Ramon-[id number] [id number]- Problem Screening for malignant neoplasm of prostate (255635151) Screening for prostate cancer (V76.44) 2017 Problem resolved confirmed Ramon-[id number] [id number]- Problem Spasm (78480244) Muscle spasm (728.85) 2012 Problem resolved confirmed Ramon-[id number] [id number]- Problem Androgen deficiency (48265341) Testosterone deficiency (257.2) 2013 Problem resolved confirmed Ramon-[id number] [id number]- Problem Rash (186493690) Rash (782.1) 2010 Problem resolved confirmed Ramon-[id number] [id number]- Problem Depression (495258424) Depression (311) 2010 Problem resolved confirmed [facility]on-98 [id number]- Problem Dizziness (120543942) Dizziness (780.4) 0 2010 Problem resolved confirmed Ramon-[id number] [id number]- Problem Ventricular tachycardia (68702155) Ventricular tachycardia (427.1) 2007 Problem resolved confirmed Ramon-[id number] [id number]- Problem Hypercholesterolemia (16821303) Hypercholesterolemia (272.0) 2012 Problem resolved confirmed Ramon-[id number] [id number]- Problem Memory loss (96889630) Memory loss (780.9) 2014 Problem resolved confirmed Ramon-[id number] [id number]- Problem Secondary polycythemia (72945941) 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) 2017 Problem resolved confirmed Ramon-98 [id number]- Problem Shortness of breath (857032985) Shortness of breath (786.09) 2016 Problem resolved confirmed Ramon-[id number] [id number]- Problem Shoulder pain (52283441) Shoulder pain (719.41) 2013 Problem resolved confirmed Ramon-[id number] [id number]- Problem Disorder of hematopoietic system (04853246) Abnormal findings on blood examination, NEC (790.99) 2013 Problem resolved confirmed Ramon-98 5911- Problem Angina (793457981) Angina (413.9) 2010 Problem resolved confirmed Ramon-98 [id number]- Problem 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 Problem resolved confirmed Ramon-98 [id number]- Problem Disorder of hematopoietic system (54543016) Other abnormal findings on blood examination (790.99) 2015 Problem resolved confirmed Ramon-[id number] [id number]- Problem Disorder of hematopoietic system (01910131) Other abnormal laboratory result on blood (790.99) 2007 Problem resolved confirmed [facility]on-98 5911- Problem Atypical mole syndrome (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) Atypical mole (238.2) 2008 Problem resolved confirmed Ramon-98 5911- Problem Chest pain (39287202) Chest pain (786.51) 2014 Problem resolved confirmed Ramon-98 5911- Problem Depressive disorder (83932765) Depressive disorder not elsewhere classified (311) 2014 Problem resolved confirmed Ramon-98 5911- Problem Generalized abdomina l pain (579202237) Generalized abdominal pain (789.07) 2008 Problem resolved confirmed Ramon-98 5911- Problem Lab: Used to mat ch unlinked laboratory orders (V92) 2014 Problem resolved confirmed Ramon-98 5911- Problem Impaired fasting glycaemia (796856135) Elevated fasting glucose (790.21) 2014 Problem resolved confirmed Ramon-98 5911- Problem Hemoglobinopathy (02049640) Elevated hematocrit (282.7) 2014 Problem resolved confirmed Ramon-98 5911- Problem Abnormal chest sound s (97742960221475) Egophany (786.7) 2016 Problem resolved confirmed Ramon-98 5911- Problem Insomnia (222058517) Insomnia (307.41) 2012 Problem resolved confirmed Ramon-98 5911- Problem Pain in limb (98832911) Leg pain (729.5) 2010 Problem resolved confirmed Ramon-98 5911- Problem Rib pain (551675590) Rib pain (786.50) 2013 Problem resolved confirmed Ramon-98 5911- Problem General examination of patient (389208318) Annual exam (V70.0) 2007 Problem resolved confirmed Ramon-98 5911- Problem Staphylococcal infectious disease (37378797) Staph infection (041.19) 2015 Problem resolved confirmed [facility]on-98 5911- Problem Heart disease (65178108) Asymmetrical cardiac hypertrophy (429.9) 2007 Problem resolved confirmed Ramon-98 5911- Problem Obstructive sleep apnea (92404421) Obstructive sleep apnea (780.57) 2014 Problem resolved confirmed Ramon-98 5911- Problem Stress (106576343) Stress (300.02) 2008 Problem resolved confirmed Ramon-98 5911- Problem Acute upper respiratory infection (90452585) Acute upper respiratory infection of multiple sites (465.8) 2018 Problem resolved confirmed Ramon-98 5911- Problem Congestion (96563088) Congestion (477.9) 2007 Problem resolved confirmed Ramon-98 5911- Problem Lumbar radiculopathy (057460737) Lumbar radiculopathy (722.10) 2010 Problem resolved confirmed Ramon-98 5911- Problem Acquired polycythemi a (40313195) Acquired polycythemia (289.0) 2016 Problem resolved confirmed Ramon-98 5911- Problem Acute sinusitis (17137696) Acute sinusitis (461.8) 2007 Problem resolved confirmed Ramon-98 5911- Problem Ankle pain (023541814) Ankle pain (719.47) 2013 Problem resolved confirmed Ramon-98 5911- Problem Heart murmur (21272697) Cardiac murmur (785.2) 2007 Problem resolved confirmed Ramon-98 5911- Problem Erythrocyte sedimentation rate raised (845944195) Elevated sed rate (ESR) (790.1) 2011 Problem resolved confirmed Ramon-98 5911- Problem Gynecomastia (0928290) Gynecomastia (611.1) 2015 Problem resolved confirmed Ramon-98 5911- Problem Thrombosed external hemorrhoids (59833261) Hemorrhoids, external thrombosed (455.4) 2017 Problem resolved confirmed Ramon-98 5911- Problem Disorder of lipid metabolism (001055483) Low HDL level (272.9) 2010 Problem resolved confirmed Ramon-98 5911- Problem Left ventricular hypertrophy (28719723) LVH (429.3) 2010 Problem resolved confirmed Ramon-98 5911- Problem Cellulitis and abscess of lower leg (758278617) Cellulitis of the leg (682.6) 2013 Problem resolved confirmed Ramon-98 5911- Problem Change in voice (247872597) Change in voice (784.49) 2013 Problem resolved confirmed [facility]on-98 5911- Problem Acute upper respiratory infection (18501657) Upper respiratory illness (465.8) 2007 Problem resolved confirmed Ramon-98 5911- Problem Kidney stone (44212142) kidney stones (592.0) 2007 Problem resolved confirmed Ramon-98 5911- Problem Cramp in lower limb (850802995) Leg cramps (729.82) 2017 Problem resolved confirmed Ramon-98 5911- Problem Low back pain (451805108) Lower back pain (724.2) 2010 Problem resolved confirmed Ramon-98 5911- Problem Dry mouth (80035671) Dry mouth (527.7) 2014 Problem resolved confirmed Ramon-98 5911- Problem Essential hypertension (84836969) Essential hypertension (401.1) 2010 Problem resolved confirmed Ramon-98 5911- Problem Impacted cerumen (36497879) External cerumen impaction (380.4) 2011 Problem resolved confirmed [facility]on-98 5911- Problem Laceration of foot (875754738) Laceration of foot (892.0) 2011 Problem resolved confirmed Ramon-98 5911- Problem Pedal edema (328991378) Pedal edema (782.3) 2014 Problem resolved confirmed Ramon-98 5911- Problem Synovial cyst (072185470) Synovial cyst, NOS (727.40) 2017 Problem resolved confirmed Ramon-98 5911- Problem Thoracic back pain (049341272) Upper back pain (724.5) 2008 Problem resolved confirmed Ramon-98 5911- Problem Seborrheic keratosis (370790702) Seborrheic keratosis, other (702.19) 2015 Problem resolved confirmed Ramon-98 5911- Vital Signs Heart Rate 94 /min 11/05/2024 Temperature 97.73 degrees Fahrenheit 11/05/2024 Height-cm 193.04 cm 11/05/2024 Blood pressure diastolic 64 mm Hg 11/05/2024 Weight-kg 130.45 kg 11/05/2024 Height 76.00 in 11/05/2024 Blood pressure systolic 101 mm Hg 11/05/2024 Weight 287.6 lbs 11/05/2024 BMI 35 kg/m2 11/05/2024 Encounters Encounter Location Date Provider Diagnosis [facility] [address] [place] [address] [address] [place] [address] 11/05/2024 Tonya Woodruff Hypertension I10 ; Testicular hypofunction E29.1 ; Nephrolithiasis N20.0 ; Fatigue R53.83 and Low libido R68.82 Migrated_Facility 0 0 03/21/2024 Provider Migration [facility]rated[facility]Fac[facility] 0 0 03/22/2024 Provider Migration [facility]Fac[facility] 0 0 07/25/2024 Provider Migration [facility]rated[facility]Facility 0 0 07/26/2024 Provider Migration [facility] [address] [place] [address] Dr [address] [place] [address] 06/15/2024 Miki Johnston Calculus of kidney N20.0 [facility] [address] [place] [address] Dr [address] [place] [address] 06/19/2024 Miki Johnston Testicular hypofunct ion E29.1 [facility] [address] [place] [address] [place] [address] 07/03/2024 Miki Johnston Testicular hypofunct ion E29.1 [facility] [address] [place] [address] Dr [address] [place] [address] 07/09/2024 Miki Johnston Testicular hypofunct ion E29.1 [facility] [address] [place] [address] [place] [address] 09/25/2024 Miki Johnston [facility] [address] [place] [address] 09/25/2024 Miki Johnston [facility] [address] [place] [address] 11/05/2024 Mikimikhail Guardadoy Testicular hypofunct ion E29.1 [facility] [address] [place] [address] 11/27/2024 Tonya Woodruff [facility] [address] [place] [address] 12/11/2024 Tonya Woodruff Assessments Encounter Date Diagnosis (ICD Code) Assessment Notes Treatment Notes Treatment Clinical Notes Section Notes 06/19/2024 Testicular hypofunction (ICD-10 - E29.1) 07/03/2024 Testicular hypofunction (ICD-10 - E29.1) 07/09/2024 Testicular hypofunction (ICD-10 - E29.1) 11/05/2024 Testicular hypofunction (ICD-10 - E29.1) If you are taking testosterone replacement, you must come to all appointment in order to receive refills If you are interested in testosterone replacement, please contact SUKHI Lopez *Testosterone Treatment Indications for Use Hypogonadism: Diagnosed through clinical symptoms and confirmed by blood tests showing low testosterone levels. Symptoms: Include low libido, erectile dysfunction, fatigue, depression, and loss of muscle mass. Benefits Improved Libido and Sexual Function: Can enhance sexual desire and performance. Increased Muscle Mass and Strength: Helps in building muscle and reducing fat. Mood and Energy: May improve mood, energy levels, and overall sense of well-being. Bone Density: Can increase bone density, reducing the risk of fractures. Risks and Side Effects Cardiovascular Risks: Potential increased risk of heart attack and stroke. Prostate Health: May exacerbate benign prostatic hyperplasia (BPH) and increase the risk of prostate cancer. Skin Reactions: Possible irritation at the application site for gels and patches. Sleep Apnea: Can worsen existing sleep apnea. Blood Clots: Increased risk of developing blood clots. Monitoring and Follow-Up Regular Blood Tests: To monitor testosterone levels, hematocrit, and PSA (prostate-specifi c antigen). Symptom Tracking: Keep a record of symptom changes and report any adverse effects to the healthcare provider. Periodic Evaluations: Regular check-ups to assess the effectiveness and safety of the treatment. Administration Tips Injections: Administered by a healthcare provider or self-administered after proper training. Gels and Patches: Apply to clean, dry skin; avoid contact with women and children to prevent secondary exposure. Oral Tablets: Take as prescribed, usually with food to enhance absorption. Lifestyle Considerations Diet and Exercise: Maintain a healthy diet and regular exercise to support overall health and enhance the benefits of testosterone therapy. Avoiding Alcohol and Smoking: Reducing or eliminating these can improve treatment outcomes and overall health. When to Seek Medical Attention Signs of an allergic reaction (rash, itching, swelling). Symptoms of a heart attack (chest pain, shortness of breath). Unusual changes in mood or behavior. Persistent or severe side effects. 11/05/2024 Hypertension (ICD-10 - I10) Treated by PCP 11/05/2024 Testicular hypofunction (ICD-10 - E29.1) 06/15/2024 Calculus of kidney (ICD-10 - N20.0) 11/05/2024 Nephrolithiasis (ICD-10 - N20.0) Have imaging completed if ordered for you If you are having the symptoms below, with fever and chills, uncontrolled pain, contact office or go to ER *Kidney stones Symptoms Severe pain in the side and back, below the ribs. Pain that radiates to the lower abdomen and groin. Pain during urination [place], red, or brown urine. Nausea and Vomiting Frequent urination or persistent urge to urinate. Causes and Risk Factors Dehydration: Not drinking enough water can lead to concentrated urine, increasing the risk of stone formation. Diet: High intake of salt, protein, and sugar can increase the risk. Family History: A family history of kidney stones can increase the likelihood of developing them. Medical Conditions: Conditions like hyperparathyroidi sm, gout, and certain urinary tract infections can contribute to stone formation. Treatment Options Hydration: Encourage patients to drink plenty of water to help pass the stone. Pain Management: Nwzx-kug-nkbiicw pain relievers like ibuprofen or acetaminophen. Medications: Alpha blockers can help relax the muscles in the ureter to facilitate stone passage. Medical Procedures: Extracorporeal Shock Wave Lithotripsy (ESWL): Uses sound waves to break stones into smaller pieces. Ureteroscopy: A thin scope is inserted through the urethra and bladder to remove or break up the stone. Percutaneous Nephrolithotomy: Surgical removal of large stones through a small incision in the back. Prevention Tips Hydration: Drink at least 2-3 liters of water daily. Dietary Changes: Reduce salt, protein, and oxalate-rich foods (e.g., spinach, nuts). Medications: For those with recurrent stones, medications may be prescribed to prevent new stones from forming. Regular Monitoring: Follow-up with healthcare providers for regular check-ups and urine tests. When to Seek Immediate Medical Attention Severe pain that makes it difficult to sit still or find a comfortable position. Pain accompanied by nausea and vomiting. Fever and chills, which may indicate an infection. 11/05/2024 Fatigue (ICD-10 - R53.83) Combating fatigue involves a multifaceted approach that addresses both physical and psychological factors. Here are some strategies that can help: Regular Exercise: Engaging in regular physical activity can improve sleep quality, boost energy levels, and enhance overall well-being. Even moderate exercise like walking or yoga can be beneficial. Healthy Diet: Consuming a balanced diet rich in nutrients can support energy levels. Focus on whole foods, including fruits, vegetables, lean proteins, and whole grains, while avoiding excessive sugar and processed foods. Adequate Sleep: Ensure you get enough restful sleep each night. Establish a regular sleep schedule, create a comfortable sleep environment, and avoid stimulants like caffeine close to bedtime. Stress Management: Practice stress-reducing techniques such as mindfulness, meditation, or deep breathing exercises. Managing stress can help reduce mental fatigue and improve energy levels. Hydration: Staying well-hydrated is crucial for maintaining energy. Dehydration can lead to feelings of fatigue, so ensure you drink enough water throughout the day. Medical Evaluation: If fatigue persists, it may be important to consult a healthcare provider to rule out underlying medical conditions such as anemia, thyroid disorders, or sleep apnea. Mindfulness and Relaxation: Incorporating mindfulness practices and relaxation techniques can help manage emotional fatigue and improve mental clarity. Limit Alcohol and Caffeine: While caffeine can provide a temporary energy boost, excessive consumption can lead to energy crashes. Similarly, alcohol can disrupt sleep patterns, contributing to fatigue. Break Tasks into Manageable Steps: If fatigue is affecting productivity, break tasks into smaller, manageable steps and take regular breaks to avoid burnout. Social Support: Engaging with friends and family can provide emotional support and help alleviate feelings of fatigue. 11/05/2024 Low libido (ICD-10 - R68.82) Combating low libido involves addressing various potential causes and implementing strategies that can help improve sexual desire. Here are some approaches that may be considered: Medical Evaluation: It's important to rule out any underlying medical conditions that could be contributing to low libido, such as hormonal imbalances, chronic illnesses, or medication side effects. Lifestyle Modifications: Exercise: Regular physical activity can improve mood, increase energy levels, and enhance body image, all of which can positively impact libido. Diet: A balanced diet rich in essential nutrients can support overall health and hormonal balance. Sleep: Ensuring adequate and quality sleep is crucial for maintaining energy levels and hormonal health. Psychological and Emotional Support: Counseling or Therapy: Addressing stress, anxiety, depression, or relationship issues through therapy can be beneficial. Sex Therapy: Working with a sex therapist can help address specific sexual concerns and improve communication with partners. Hormonal Treatments: Testosterone Therapy: In some cases, testosterone therapy may be considered for both men and women with low libido, particularly if there is a hormonal deficiency. Estrogen Therapy: For postmenopausal women, estrogen therapy can help alleviate symptoms like vaginal dryness that may affect libido. Medications: Flibanserin (Addyi) and Bremelanotide (Vyleesi) are medications approved for treating low libido in women with hypoactive sexual desire disorder (HSDD). Addressing Medication Side Effects: If low libido is a side effect of medications (e.g., antidepressants), discussing alternatives or adjustments with a healthcare provider may be helpful. Improving Relationship Dynamics: Open communication with partners about sexual needs and desires can enhance intimacy and sexual satisfaction. Plan Of Treatment Pending Test Test Name Order Date CBC w\ Auto Diff [id number] 06/15/2024 CBC w\ Auto Diff [id number] 06/19/2024 Comprehensive Metabolic Panel (CMP) 8005 3 06/15/2024 Comprehensive Metabolic Panel (CMP) 8005 3 06/19/2024 Estradiol Level [id number] 06/19/2024 Estradiol Level 85990 06/15/2024 Testosterone Total [id number] 06/15/2024 Testosterone Total [id number] 06/19/2024 Abdomen [id number] 06/15/2024 Next Appt Details Provider Name:Tonya Silverman, 05/05/2025 02:00:00 PM, [address] [employer] , [address], [place], [address], Insurance Providers Payer Name Payer Address Payer Phone Subscriber Number Group Number Insured Name Patient Relationship to Insured Coverage Start Date Coverage End Date [employer] [place] [employer] Commercial [address] [place] [phone] [id number] Charan Smith Self - patient is the insured Medical (General) History Medical History History ICD Code Asymmetrical cardiac hypertrophy Hypertension Hypercholesterolemia Sleep apnea Osteoarthritis Testosterone deficiency Erectile dysfunction Depression OTHER MEDICAL PROVIDERS 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 Orourke Pain management- Dr. Maldonado Urologist- Dr. Cage Felt Hanger - Dr. Bala Juárez Thyroid tumor, benign 09/2020 Electrocution; 02/2020 Asthma CKD New onset of A-fib Surgical History Surgery Date(Month/Year) Fracture of wrist; 2004 Foot; left 2013 L4-L5 Fusion Hospitalization History Reason Date(Month/Year) New onset Afib 11/07/20 Covid 09/2020
--- OUTSIDE RECORDS SUMMARY | 2025-02-09 19:11 | XMS_ITS | Encounter Summary ---
Author Organization [facility] Address [address] [place] [address] Care Team Providers Care Customer Service Officer Name Role Phone Favian Maldonado MD, Shant Humphreys Primary Care Provider Encounter Details Date Type Department Care Team (Late st Contact Info) Description 11/17/2022 Lab Requisition [facility] Laboratory Services [address] [place] [address] [place] [address] Cary Javier PA-C [address] [place] [address] Social History Tobacco Use Types Packs/Day Years Used Date Smoking Tobacco: Never Assessed Sex and Gender Information Value Date Recorded Sex Assigned at Not on file Legal 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 FLAG SIGNALER Gender Identity Not on file Sexual Orientation Not on file documented as of this encounter Plan of Treatment Not on file documented as of this encounter Procedures Procedure Name Priority Date/Time Associated Diagnosis Comments C. DIFFICILE DETECTION Routine 11/17/2022 10:45 AM FLAG SIGNALER documented in this encounter Results * (ABNORMAL) C. DIFFICILE DETECTION (11/17/2022 10:45 AM FLAG SIGNALER) TOXIGENIC C DIFFICILE DETECTED( A) Not Detected 11/17/2022 1:45 PM FLAG SIGNALER [facility] Stool STOOL SPECIMEN / Unknown Collection / Unknown 11/17/2022 10:45 AM FLAG SIGNALER 11/17/2022 12:20 PM FLAG SIGNALER Narrative [facility] - 11/17/2022 1:45 PM FLAG SIGNALER Cdiff detected called to Cait Feng [facility] by CATRACHO REINA on 11/17/2022 at 1:44 PM with verbal readback. This assay is used to detect Toxigenic C. difficile target(B gene) DNA sequences in unformed stool specimens. If toxigenic C. difficile is not detected, but clinical suspicion is high please consult ID for consultation and potential repeat testing. This test should not be used as a test of cure. Cary Javier PA-C MICROBIOLOGY - GENERAL ORDERAB LES Final Result [facility] CLIA # [id number] [facility] [address] documented in this encounter Visit Diagnoses Not on filedocumented in this encounter Additional Health Concerns Infection Onset Date Last Indicated Resolved Time C Diff 11/17/2022 11/17/2022 01/16/2023 1:16 AM CDT documented as of this encounter Care Teams Customer Service Officer Relationship Specialty Start Date End Date Shant Ballesteros Jr., MD [address] [place] [address] PCP - General Family Practice 01/19/14 documented as of this encounter
--- OUTSIDE RECORDS SUMMARY | 2025-02-09 19:11 | XMS_ITS | Encounter Summary ---
Author Organization [email or web address] [facility] Address [address] [place] [address] Care Team Providers Care Social Service Assistant Name Role Phone Favian Maldonado MD, Shant Humphreys Primary Care Provider Encounter Details Date Type Department Care Team (Late st Contact Info) Description 11/19/2022 Lab Requisition [facility] Laboratory Services [address] [place] [address] [place] [address] Low Amaya, DO [address] [place] [phone] Social History Tobacco Use Types Packs/Day Years Used Date Smoking Tobacco: Never Assessed Sex and Gender Information Value Date Recorded Sex Assigned at Not on file Legal 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 FLAME GOUGER Gender Identity Not on file Sexual Orientation Not on file documented as of this encounter Plan of Treatment Not on file documented as of this encounter Procedures Procedure Name Priority Date/Time Associated Diagnosis Comments TRIGLYCERIDE Routine 11/19/2022 2:55 AM FLAME GOUGER PHOSPHORUS Routine 11/19/2022 2:55 AM FLAME GOUGER MAGNESIUM LEVEL Routine 11/19/2022 2:55 AM FLAME GOUGER COMPREHENSIVE METABOLIC PANEL Routine 11/19/2022 2:55 AM FLAME GOUGER documented in this encounter Results * TRIGLYCERIDE (11/19/2022 2:55 AM FLAME GOUGER) TRIGLYCERIDE 126 <150 mg/dL 11/19/2022 6:43 AM FLAME GOUGER [facility] Blood Collection / Unknown 11/19/2022 2:55 AM FLAME GOUGER 11/19/2022 6:22 AM FLAME GOUGER Narrative [facility] - 11/19/2022 6:43 AM FLAME GOUGER TRIGLYCERIDES mg/dL Normal < 150 Borderline High 150 - 199 High 200 - 499 Very High >= 500 Based on AHA/NCEP Guidelines. Low Amaya DO CHEMISTRY ORDERABLES Final R esult Performing Organization Address [facility] Co de Phone Number [facility] CLIA # [id number] [address] [facility] [place] [address] * PHOSPHORUS (11/19/2022 2:55 AM FLAME GOUGER) PHOSPHORUS 4.4 2.5 - 4.5 mg/dL 11/19/2022 6:43 AM FLAME GOUGER [facility] Blood Collection / Unknown 11/19/2022 2:55 AM FLAME GOUGER 11/19/2022 6:22 AM FLAME GOUGER Low Amaya DO CHEMISTRY ORDERABLES Final R esult Performing Organization Address [facility] Co de Phone Number [facility] CLIA # [id number] [address] [address] * MAGNESIUM LEVEL (11/19/2022 2:55 AM FLAME GOUGER) MAGNESIUM 1.9 1.6 - 2.4 mg/dL 11/19/2022 6:43 AM FLAME GOUGER [facility] Blood Collection / Unknown 11/19/2022 2:55 AM FLAME GOUGER 11/19/2022 6:22 AM FLAME GOUGER Low Amaya DO CHEMISTRY ORDERABLES Final R esult Performing Organization Address [facility] Co de Phone Number [facility] CLIA # [id number] [address] [address] [place] [address] * (ABNORMAL) COMPREHENSIVE METABOLIC PANEL (11/19/2022 2:55 AM FLAME GOUGER) SODIUM 144 136 - 145 mmol/L 11/19/2022 6:43 AM [facility] POTASSIUM 3.5 3.5 - 5.1 mmol/L 11/19/2022 6:43 AM [facility] CHLORIDE 105 98 - 107 mmol/L 11/19/2022 6:43 AM [facility] CO2 32(H) 22 - 29 mmol/L 11/19/2022 6:43 AM [facility] CALCIUM 9.1 8.8 - 10.2 mg/dL 11/19/2022 6:43 AM [facility] BUN 22 8 - 23 mg/dL 11/19/2022 6:43 AM [facility] CREATININE 0.99 0.67 - 1.17 mg/dL 11/19/2022 6:43 AM [facility] GLUCOSE 169(H) 74 - 99 mg/dL 11/19/2022 6:43 AM [facility] TOTAL PROTEIN 6.6 6.4 - 8.3 g/dL 11/19/2022 6:43 AM [facility] ALBUMIN 3.0(L) 3.5 - 5.2 g/dL 11/19/2022 6:43 AM [facility] BILIRUBIN TOTAL 0.2 0.2 - 1.0 mg/dL 11/19/2022 6:43 AM [facility] ALKALINE PHOSPHATASE 64 40 - 129 U/L 11/19/2022 6:43 AM [facility] AST 13 10 - 50 U/L 11/19/2022 6:43 AM [facility] ALT 8 <=50 U/L 11/19/2022 6:43 AM [facility] GFR >60 >=60 mL/min/1.7 3 sq meter 11/19/2022 6:43 AM FLAME GOUGER [facility] Comment:eGFR calculated with 2020 CKD-EPI equation. Vegetarian diet, extremely high or low muscle mass, and may affect results. Cystatin C with Glomerular Filtration Rate is a suitable alternative for these patients. ANION GAP 7(L) 9 - 20 mmol/L 11/19/2022 6:43 AM FLAME GOUGER [facility] Blood Collection / Unknown 11/19/2022 2:55 AM FLAME GOUGER 11/19/2022 6:22 AM FLAME GOUGER us Low Amaya DO CHEMISTRY ORDERABLES Final R esult [facility] CLIA # [id number] [address] [address] documented in this encounter Visit Diagnoses Not on filedocumented in this encounter Additional Health Concerns Infection Onset Date Last Indicated Resolved Time C Diff 11/17/2022 11/17/2022 01/16/2023 1:16 AM CDT documented as of this encounter Care Teams Social Service Assistant Relationship Specialty Start Date End Date Shant Ballesteros Jr., MD [address] [place] [address] PCP - General Family Practice 01/19/14 documented as of this encounter
--- OUTSIDE RECORDS SUMMARY | 2025-02-09 19:11 | XMS_ITS | Encounter Summary ---
Author Organization [facility] Address [address] [place] [address] Care Team Providers Care Fixing Carpenter Name Role Phone Favian Maldonado MD, Shant Humphreys Primary Care Provider Encounter Details Date Type Department Care Team (Late st Contact Info) Description 11/20/2022 Lab Requisition [facility] Laboratory Services [address] [place] [address] [place] [address] Andre Mary, MADHU [address] [facility] [address] [place] [address] Social History Tobacco Use Types Packs/Day Years Used Date Smoking Tobacco: Never Assessed Sex and Gender Information Value Date Recorded Sex Assigned at Not on file Legal 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 TECHNICAL DIRECTOR Gender Identity Not on file Sexual Orientation Not on file documented as of this encounter Plan of Treatment Not on file documented as of this encounter Procedures Procedure Name Priority Date/Time Associated Diagnosis Comments CBC WITH DIFFERENTIAL Routine 11/20/2022 3:55 PM TECHNICAL DIRECTOR documented in this encounter Results * (ABNORMAL) CBC WITH DIFFERENTIAL (11/20/2022 3:55 PM TECHNICAL DIRECTOR) WBC 7.3 4.8 - 10.8 K/uL 11/20/2022 4:35 PM TECHNICAL DIRECTOR [facility] RBC 2.66(L) 4.60 - 6.20 M/uL 11/20/2022 4:35 PM TECHNICAL DIRECTOR [facility] HEMOGLOBIN 8.0(L) 14.0 - 18.0 g/dL 11/20/2022 4:35 PM [facility] HEMATOCRIT 27.1(L) 41.0 - 53.0 % 11/20/2022 4:35 PM [facility] MCV 101.9 84.0 - 103.0 fL 11/20/2022 4:35 PM [facility] MCH 30.1 27.0 - 34.0 pg 11/20/2022 4:35 PM [facility] MCHC 29.5(L) 30.0 - 35.0 g/dL 11/20/2022 4:35 PM [facility] RDW 17.7(H) 11.0 - 14.5 % 11/20/2022 4:35 PM [facility] RDW-STDEV 62.4(H) 37.0 - 54.0 fL 11/20/2022 4:35 PM [facility] PLATELETS 302 140 - 440 K/uL 11/20/2022 4:35 PM [facility] MPV 9.6 8.9 - 12.8 fL 11/20/2022 4:35 PM [facility] NEUTROPHILS 68 42 - 75 % 11/20/2022 4:35 PM [facility] LYMPHOCYTES 15(L) 24 - 44 % 11/20/2022 4:35 PM [facility] MONOCYTES 12(H) 2 - 10 % 11/20/2022 4:35 PM [facility] EOSINOPHILS 3 0 - 7 % 11/20/2022 4:35 PM [facility] BASOPHILS 0 0 - 1 % 11/20/2022 4:35 PM [facility] IMMATURE GRANULOCYTES 1 0 - 2 % 11/20/2022 4:35 PM [facility] NEUTROPHIL ABSOLUTE 5.00 2.00 - 8.00 K/uL 11/20/2022 4:35 PM [facility] LYMPHOCYTE ABSOLUTE 1.06(L) 1.20 - 4.00 K/uL 11/20/2022 4:35 PM TECHNICAL DIRECTOR [facility] MONOCYTE ABSOLUTE 0.91(H) 0.10 - 0.60 K/uL 11/20/2022 4:35 PM TECHNICAL DIRECTOR [facility] EOSINOPHIL ABSOLUTE 0.22 0.00 - 0.70 K/uL 11/20/2022 4:35 PM [facility] BASOPHILS ABSOLUTE 0.02 0.00 - 0.20 K/uL 11/20/2022 4:35 PM [facility] IMMATURE GRANULOCYTES ABSOLUTE 0.10 0.00 - 0.10 K/uL 11/20/2022 4:35 PM [facility] Blood Collection / Unknown 11/20/2022 3:55 PM TECHNICAL DIRECTOR 11/20/2022 4:30 PM TECHNICAL DIRECTOR us Andre Mary BOOK REPAIRER HEMATOLOGY ORDERABLES Fi nal Result [facility] CLIA # [id number] [facility] [address] [address] documented in this encounter Visit Diagnoses Not on filedocumented in this encounter Additional Health Concerns Infection Onset Date Last Indicated Resolved Time C Diff 11/17/2022 11/17/2022 01/16/2023 1:16 AM CDT documented as of this encounter Care Teams Fixing Carpenter Relationship Specialty Start Date End Date Shant Ballesteros Jr., MD [address] [place] [address] PCP - General Family Practice 01/19/14 documented as of this encounter
--- OUTSIDE RECORDS SUMMARY | 2025-02-09 19:11 | XMS_ITS | Encounter Summary ---
Author Organization [employer] [facility] Address [address] [place] [address] Care Team Providers Care Patternmaker Sample Name Role Phone Favian Maldonado MD, Shant Humphreys Primary Care Provider Encounter Details Date Type Department Care Team (Late st Contact Info) Description 11/19/2022 Lab Requisition [facility] Laboratory Services [address] [place] [address] [place] [address] Low Amaya, DO [address] [place] [address] Social History Tobacco Use Types Packs/Day Years Used Date Smoking Tobacco: Never Assessed Sex and Gender Information Value Date Recorded Sex Assigned at Not on file Legal 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 BARREL POLISHER Gender Identity Not on file Sexual Orientation Not on file documented as of this encounter Plan of Treatment Not on file documented as of this encounter Procedures Procedure Name Priority Date/Time Associated Diagnosis Comments CALCIUM IONIZED Routine 11/19/2022 3:45 PM BARREL POLISHER documented in this encounter Results * CALCIUM IONIZED (11/19/2022 3:45 PM BARREL POLISHER) CALCIUM IONIZED 5.2 4.8 - 5.6 mg/dL 11/21/2022 10:53 AM BARREL POLISHER [facility] Blood Collection / Unknown 11/19/2022 3:45 PM BARREL POLISHER 11/20/2022 7:56 AM BARREL POLISHER Narrative [facility] - 11/21/2022 10:53 AM BARREL POLISHER Performing Organization Information: Site ID: [id number] Name: [facility] Address: [address] [address] Director: Andrew Alvarado MD us Low Amaya DO CHEMISTRY ORDERABLES Final R esult [facility] documented in this encounter Visit Diagnoses Not on filedocumented in this encounter Additional Health Concerns Infection Onset Date Last Indicated Resolved Time C Diff 11/17/2022 11/17/2022 01/16/2023 1:16 AM CDT documented as of this encounter Care Teams Patternmaker Sample Relationship Specialty Start Date End Date Shant Ballesteros Jr., MD [address] [place] [address] PCP - General Family Practice 01/19/14 documented as of this encounter
--- OUTSIDE RECORDS SUMMARY | 2025-02-09 19:11 | XMS_ITS | Encounter Summary ---
Author Organization [facility] Address [address] [place] [address] Care Team Providers Care Senior Receptionist Name Role Phone Favian Maldonaod MD, Shant Humphreys Primary Care Provider Encounter Details Date Type Department Care Team (Late st Contact Info) Description 11/09/2022 Lab Requisition [facility] Laboratory Services [address] [place] [address] [place] [address] Soni Jeffery MD [address] [place] [address] Social History Tobacco Use Types Packs/Day Years Used Date Smoking Tobacco: Never Assessed Sex and Gender Information Value Date Recorded Sex Assigned at Not on file Legal 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 COMFORT STATION ATTENDANT Gender Identity Not on file Sexual Orientation Not on file documented as of this encounter Plan of Treatment Not on file documented as of this encounter Procedures Procedure Name Priority Date/Time Associated Diagnosis Comments CBC WITH DIFFERENTIAL Routine 11/09/2022 6:15 PM COMFORT STATION ATTENDANT BASIC METABOLIC PANEL Routine 11/09/2022 6:15 PM COMFORT STATION ATTENDANT documented in this encounter Results * (ABNORMAL) CBC WITH DIFFERENTIAL (11/09/2022 6:15 PM COMFORT STATION ATTENDANT) [facility] WBC 7.2 4.8 - 10.8 K/uL 11/09/2022 7:07 PM COMFORT STATION ATTENDANT [facility] SERVICES [facility] RBC 2.78(L) 4.60 - 6.20 M/uL 11/09/2022 7:07 PM [facility] HEMOGLOBIN 8.0(L) 14.0 - 18.0 g/dL 11/09/2022 7:07 PM [facility] HEMATOCRIT 27.5(L) 41.0 - 53.0 % 11/09/2022 7:07 PM [facility] MCV 98.9 84.0 - 103.0 fL 11/09/2022 7:07 PM [facility] MCH 28.8 27.0 - 34.0 pg 11/09/2022 7:07 PM [facility] MCHC 29.1(L) 30.0 - 35.0 g/dL 11/09/2022 7:07 PM [facility] RDW 15.9(H) 11.0 - 14.5 % 11/09/2022 7:07 PM [facility] RDW-STDEV 57.7(H) 37.0 - 54.0 fL 11/09/2022 7:07 PM [facility] PLATELETS 250 140 - 440 K/uL 11/09/2022 7:07 PM [facility] MPV 10.9 8.9 - 12.8 fL 11/09/2022 7:07 PM [facility] NEUTROPHILS 65 42 - 75 % 11/09/2022 7:07 PM [facility] LYMPHOCYTES 11(L) 24 - 44 % 11/09/2022 7:07 PM [facility] MONOCYTES 17(H) 2 - 10 % 11/09/2022 7:07 PM [facility] EOSINOPHILS 6 0 - 7 % 11/09/2022 7:07 PM [facility] BASOPHILS 1 0 - 1 % 11/09/2022 7:07 PM [facility] IMMATURE GRANULOCYTES 1 0 - 2 % 11/09/2022 7:07 PM [facility] NEUTROPHIL ABSOLUTE 4.64 2.00 - 8.00 K/uL 11/09/2022 7:07 PM [facility] LYMPHOCYTE ABSOLUTE 0.79(L) 1.20 - 4.00 K/uL 11/09/2022 7:07 PM [facility] MONOCYTE ABSOLUTE 1.19(H) 0.10 - 0.60 K/uL 11/09/2022 7:07 PM [facility] EOSINOPHIL ABSOLUTE 0.42 0.00 - 0.70 K/uL 11/09/2022 7:07 PM [facility] BASOPHILS ABSOLUTE 0.04 0.00 - 0.20 K/uL 11/09/2022 7:07 PM [facility] IMMATURE GRANULOCYTES ABSOLUTE 0.08 0.00 - 0.10 K/uL 11/09/2022 7:07 PM [facility] Blood Collection / Unknown 11/09/2022 6:15 PM COMFORT STATION ATTENDANT 11/09/2022 7:[address] [facility] Soni Jeffery MD HEMATOLOGY ORDERABLES Final Resu lt [facility] CLIA # [id number] [facility] [address] * (ABNORMAL) BASIC METABOLIC PANEL (11/09/2022 6:15 PM COMFORT STATION ATTENDANT) SODIUM 140 136 - 145 mmol/L 11/09/2022 7:39 PM [facility] POTASSIUM 4.8 3.5 - 5.1 mmol/L 11/09/2022 7:39 PM [facility] CHLORIDE 106 98 - 107 mmol/L 11/09/2022 7:39 PM [facility] CO2 26 22 - 29 mmol/L 11/09/2022 7:39 PM [facility] CALCIUM 8.6(L) 8.8 - 10.2 mg/dL 11/09/2022 7:39 PM [facility] BUN 22 8 - 23 mg/dL 11/09/2022 7:39 PM [facility] CREATININE 1.15 0.67 - 1.17 mg/dL 11/09/2022 7:39 PM [facility] GLUCOSE 121(H) 74 - 99 mg/dL 11/09/2022 7:39 PM COMFORT STATION ATTENDANT [facility] GFR >60 >=60 mL/min/1.7 3 sq meter 11/09/2022 7:39 PM [facility] Comment:eGFR calculated with 2020 CKD-EPI equation. Vegetarian diet, extremely high or low muscle mass, and may affect results. Cystatin C with Glomerular Filtration Rate is a suitable alternative for these patients. ANION GAP 8(L) 9 - 20 mmol/L 11/09/2022 7:39 PM [facility] Blood Collection / Unknown 11/09/2022 6:15 PM COMFORT STATION ATTENDANT 11/09/2022 7:03 PM COMFORT STATION ATTENDANT Soni Jeffery MD CHEMISTRY ORDERABLES Final Resul t Performing Organization Address City/State/[facility] Co de Phone Number [facility] CLIA # [id number] [facility] [address] documented in this encounter Visit Diagnoses Not on filedocumented in this encounter Additional Health Concerns Infection Onset Date Last Indicated Resolved Time C Diff 11/17/2022 11/17/2022 01/16/2023 1:16 AM CDT documented as of this encounter Care Teams Senior Receptionist Relationship Specialty Start Date End Date Shant Ballesteros Jr., MD [address] [place] [address] PCP - General Family Practice 01/19/14 documented as of this encounter
--- OUTSIDE RECORDS SUMMARY | 2025-02-09 19:11 | XMS_ITS | Encounter Summary ---
Author Organization [email or web address] Address [address] [place] [address] Care Team Providers Care Bingo Attendant Name Role Phone Favian Maldonado MD, Shant Humphreys Primary Care Provider Encounter Details Date Type Department Care Team (Late st Contact Info) Description 11/28/2022 Lab Requisition [facility] [address] [place] [address] Low Amaya, DO [address] [place] [id number] Social History Tobacco Use Types Packs/Day Years Used Date Smoking Tobacco: Never Assessed Sex and Gender Information Value Date Recorded Sex Assigned at Not on file Legal 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 TECHNOLOGY LEAD Gender Identity Not on file Sexual Orientation Not on file documented as of this encounter Plan of Treatment Not on file documented as of this encounter Procedures Procedure Name Priority Date/Time Associated Diagnosis Comments PHOSPHORUS Routine 11/28/2022 7:48 AM TECHNOLOGY LEAD MAGNESIUM LEVEL Routine 11/28/2022 7:48 AM TECHNOLOGY LEAD COMPREHENSIVE METABOLIC PANEL Routine 11/28/2022 7:48 AM TECHNOLOGY LEAD documented in this encounter Results * MAGNESIUM LEVEL (11/28/2022 7:48 AM TECHNOLOGY LEAD) MAGNESIUM 2.0 1.6 - 2.4 mg/dL 11/28/2022 8:53 AM TECHNOLOGY LEAD [facility] Blood Collection / Unknown 11/28/2022 7:48 AM TECHNOLOGY LEAD 11/28/2022 8:34 AM TECHNOLOGY LEAD Low Amaya DO CHEMISTRY ORDERABLES Final R esult Performing Organization Address [facility]/ZIP Co de Phone Number [facility] CLIA # [id number] [address] [address] * PHOSPHORUS (11/28/2022 7:48 AM TECHNOLOGY LEAD) PHOSPHORUS 3.0 2.5 - 4.5 mg/dL 11/28/2022 8:53 AM [facility] Blood Collection / Unknown 11/28/2022 7:48 AM TECHNOLOGY LEAD 11/28/2022 8:34 AM TECHNOLOGY LEAD Low Amaya DO CHEMISTRY ORDERABLES Final R esult Performing Organization Address [facility]/ZIP Co de Phone Number [facility] CLIA # [id number] [address] [address] * (ABNORMAL) COMPREHENSIVE METABOLIC PANEL (11/28/2022 7:48 AM TECHNOLOGY LEAD) SODIUM 143 136 - 145 mmol/L 11/28/2022 8:53 AM [facility] POTASSIUM 4.0 3.5 - 5.1 mmol/L 11/28/2022 8:53 AM [facility] CHLORIDE 103 98 - 107 mmol/L 11/28/2022 8:53 AM [facility] CO2 33(H) 22 - 29 mmol/L 11/28/2022 8:53 AM [facility] CALCIUM 9.4 8.8 - 10.2 mg/dL 11/28/2022 8:53 AM [facility] BUN 27(H) 8 - 23 mg/dL 11/28/2022 8:53 AM [facility] CREATININE 0.96 0.67 - 1.17 mg/dL 11/28/2022 8:53 AM [facility] GLUCOSE 112(H) 74 - 99 mg/dL 11/28/2022 8:53 AM [facility] TOTAL PROTEIN 7.0 6.4 - 8.3 g/dL 11/28/2022 8:53 AM [facility] ALBUMIN 3.1(L) 3.5 - 5.2 g/dL 11/28/2022 8:53 AM [facility] BILIRUBIN TOTAL 0.3 0.2 - 1.0 mg/dL 11/28/2022 8:53 AM [facility] ALKALINE PHOSPHATASE 97 40 - 129 U/L 11/28/2022 8:53 AM [facility] AST 14 10 - 50 U/L 11/28/2022 8:53 AM [facility] ALT 11 <=50 U/L 11/28/2022 8:53 AM [facility] GFR >60 >=60 mL/min/1.7 3 sq meter 11/28/2022 8:53 AM [facility] Comment:eGFR calculated with 2020 CKD-EPI equation. Vegetarian diet, extremely high or low muscle mass, and may affect results. Cystatin C with Glomerular Filtration Rate is a suitable alternative for these patients. ANION GAP 7(L) 9 - 20 mmol/L 11/28/2022 8:53 AM [facility] Blood Collection / Unknown 11/28/2022 7:48 AM TECHNOLOGY LEAD 11/28/2022 8:34 AM TECHNOLOGY LEAD us Low Amaya DO CHEMISTRY ORDERABLES Final R esult [facility] CLIA # [id number] [facility] [address] documented in this encounter Visit Diagnoses Not on filedocumented in this encounter Additional Health Concerns Infection Onset Date Last Indicated Resolved Time C Diff 11/17/2022 11/17/2022 01/16/2023 1:16 AM CDT documented as of this encounter Care Teams Bingo Attendant Relationship Specialty Start Date End Date Shant Ballesteros Jr., MD [address] [place] [address] PCP - General Family Practice 01/19/14 documented as of this encounter
[2025-02-09 19:39] VITALS: RESP 17
[2025-02-09] MEDS: oxyCODONE 5 mg IR Tab/Cap 10 MG PO (19:39)
[2025-02-09 19:44] VITALS: BP 134/75; PULSE 93; RESP 17; TEMP 36.7; O2SAT 96
[2025-02-09] MEDS: trazodone 150 mg Tablet 300 MG PO (20:36)
[2025-02-09] MEDS: gabapentin 300 mg Capsule PO (20:36)
[2025-02-09] MEDS: atorvastatin 40 mg Tablet 20 MG PO (20:36)
[2025-02-09 22:03] LABS: Digoxin 0.6 ng/mL (0.6-1.2)
[2025-02-09 23:54] VITALS: BP 110/78; PULSE 88; RESP 16; TEMP 36.7; O2SAT 95
[2025-02-10] VITALS (11 sets, daily range): BP systolic 51–111; BP diastolic 36–80; PULSE 76–97; RESP 16–19; TEMP 36.6–37.2; O2SAT 91–96
[2025-02-10] MEDS: piperacillin-tazobactam 3.375 GM in sodium chloride 0.9% (plus) 50 ML IV ×4 (00:54→23:28)
[2025-02-10] MEDS: heparin 5,000 unit/mL INJ 1 mL 5000 UNIT SUBCUT ×2 (03:56→17:39)
[2025-02-10] MEDS: oxyCODONE 5 mg IR Tab/Cap 10 MG PO ×4 (03:56→23:28)
[2025-02-10 04:17] LABS: Basophils % 0.3 %; Eosinophils # 0.2 10^3/uL (0.0-0.8); Eosinophils % 2.4 %; Lymphocytes # 1.5 10^3/uL (0.8-4.8); Lymphocytes % 20.1 %; Mean Corpuscular Hemoglobin 30.5 pg (27-33); Mean Corpuscular Volume 98.3 fl (82-101); Mean Platelet Volume 9.3 fL (7.4-10.4); Monocytes # 0.9 10^3/uL (0.2-0.9); Monocytes % 12.9 %; Neutrophils # 4.53 10^3/uL (1.8-7.7); Neutrophils % 62.8 %; Nucleated Red Blood Cells % 0 %; Platelet Count 314 10^3/cmm (157-399); Red Blood Count 4.07 10^6/uL (3.85-5.65); Red Cell Distribution Width 16.3 % (12.1-15.1); White Blood Count 7.21 10^3/uL (3.29-11.43)
[2025-02-10 04:33] LABS: Alanine Aminotransferase 11 U/L (0-41); Albumin Level 3.8 g/dL (3.5-5.2); Alkaline Phosphatase 69 U/L (40-130); Anion Gap 18.7 (5-19); Aspartate Amino Transferase 13 U/L (0-40); Blood Urea Nitrogen 30 mg/dL (8-23); Calcium 9.4 mg/dL (8.5-10.5); Carbon Dioxide 23 mmol/L (22-29); Chloride 99 mmol/L (98-107); Creatinine Clr Calc Pharmacy 54.6676; Globulin 3.6 g/dL (1.3-4.6); Glomerular Filtration Rate 37.5 mL/min (90-130); Glucose 100 mg/dL (65-115); Magnesium 1.8 mg/dL (1.7-2.3); Osmolality Calculated 290 mOsm/kg (285-295); Phosphorus 4.4 mg/dL (2.5-4.5); Potassium 3.7 mmol/L (3.5-5.1); Sodium 137 mmol/L (136-145); Total Bilirubin 0.4 mg/dL (0.15-1.2); Total Protein 7.4 g/dL (6.6-8.7)
[2025-02-10] MEDS: sodium chloride 0.9% 1,000 ML 100 ML IV ×2 (04:58→17:38)
[2025-02-10 05:02] LABS: Folate Level > 20.0 ng/mL (4.5-32.2)
[2025-02-10] MEDS: amiodarone 200 mg Tablet PO (08:55)
[2025-02-10] MEDS: fidaxomicin 200 mg Tablet PO ×2 (08:55→17:39)
[2025-02-10] MEDS: gabapentin 300 mg Capsule PO ×3 (08:55→21:01)
[2025-02-10] MEDS: docusate sodium 100 mg Capsule PO (08:55)
[2025-02-10 09:46] LABS: Bilirubin Urine Negative (Negative); Blood Urine Negative (Negative); Glucose Urine UA Negative (Normal); Ketones Urine Trace (Negative); Leukocyte Esterase Urine Negative (Negative); Nitrate Urine Negative (Negative); Protein Urine 1+ (Negative); Specific Gravity, Urine 1.024 (1.005-1.030); Urine Appearance Clear (CLEAR); Urine Color Yellow (Yellow)
[2025-02-10 09:51] LABS: Add Urine Microscopic? YES; Bacteria Urine None Seen /hpf; Hyaline Casts Urine 12.81 /lpf; RBC Urine 0-2 /hpf (0-2); Squamous Epithelial Cell Urine 0-5 /hpf (0-5); WBC Urine 0-5 /hpf (0-5)
[2025-02-10 10:05] LABS: Potassium, Radom Urine 36 mmol/L; Urine Creatinine 290 mg/dL (39-259)
[2025-02-10 10:08] LABS: UA Slide Review UA Slide Review Perf
[2025-02-10 10:09] LABS: Add Urine Culture? No
[2025-02-10 10:20] LABS: Urine Random Chloride 11 mmol/L
[2025-02-10 10:21] LABS: Urine Random Sodium < 10 mmol/L
--- NOTE | 2025-02-10 10:40 | P.PN_ITS ---
Subjective 2 Subjective: No acute events overnight. Patient has remained hemodynamically stable and afebrile. Says he finally was able to pee today morning. States feeling better. States he is hungry and wants to have regular food. Denies any nausea or vomiting. Vitals/I&O/Wt Last Vital Signs Temp 98.1 F 02/10/25 08:03 Pulse 89 02/10/25 08:03 Resp 18 02/10/25 10:30 BP 100/61 02/10/25 08:03 Pulse Ox 93 02/10/25 10:30 O2 Del Method Room Air 02/10/25 08:03 02/09/25 02/10/25 02/10/25 22:59 06:59 14:59 Intake Total 1480 / 1480 1460 / 2940 400 / 400 Output Total 300 / 300 350 / 650 300 / 300 Balance 1180 / 1180 1110 / 2290 100 / 100 Weight last 48 hrs Weight 122.833 kg Weight 112.491 kg Weight 121.109 kg Physical Exam 2 Narrative: General: No acute distress, AO x3, dehydrated, sick appearing HEENT: PERRLA, pupils bilaterally equal and reactive Chest: Normal vesicular breath sounds, no added sounds, equal good air entry bilaterally CVS: S1-S2 regular, no murmurs, no tachycardia, no gallops, no rubs Abdomen: Soft, nontender, no organomegaly, bowel sounds present, central healed vertical scar, colostomy in place with greenish blackish liquid watery bowel movement Neuro: No focal deficits, no facial deformity, AO x3, power 5/5 in all limbs Data 02/10/25 04:00 02/10/25 04:00 A&P Assessment and plan (1) Syncope and collapse: Most likely in setting of dehydration due to diarrhea and vomiting and poor oral intake recently along with ongoing chemotherapy. Appreciate orthostatics. Repeat. Fall precautions. IV fluids with normal saline 100 cc/h. Telemetry. Physical therapy evaluation. (2) Diarrhea: History of C. difficile. On chronic suppression. Check stool for C. difficile and stool studies. Currently pending. Empirically start on Dificid as patient has a high chance of recurrent C. difficile. Hold off on daily vancomycin for now. Normal saline at 100 cc/h. As patient is on chemotherapy cannot rule out mild gastroenteritis. Blood culture if patient spikes a fever. For now continue with IV Zosyn. Stool studies. (3) Vomiting: Zofran as needed. Protonix daily. Resolved. Advance to regular diet. (4) Acute kidney injury: Baseline creatinine recently within last 1 year has been ranging from 1-1.4. Coming down to 1.8 today. Most likely in setting of dehydration. Does have history of kidney stones. Appreciate CT on pelvis without contrast with no concerns for obstructive nephropathy. Does have nonobstructive kidney stones bilaterally.. Medical reconciliation for nephrotoxic drugs. Strict input output charting. IV fluid as above. (5) H/O Clostridium difficile infection: (6) Hypertension: Goal blood pressure less than 140/90 mmHg. Continue to monitor. (7) Afib: Takes amiodarone 200 mg daily at home, digoxin. Given TALON continue to hold off on digoxin. Normal digoxin level. Not on anticoagulation as an outpatient. Last echocardiogram from December 2024 showed an EF of 60% with mild LVH, biatrial enlargement (8) Malignant neoplasm of splenic flexure: (9) Metastatic colon cancer to liver: Plan CODE STATUS: will be DPOA. Full code. Protonix OPD prophylaxis Heparin for DVT prophylaxis Advance to regular diet. PDMP PDMP Reviewed: Not Reviewed Attestations 2 Medical Necessity Statement*: Requires further hospitalization for management of TALON due to poor oral intake, diarrhea in a patient with history of C. difficile on chemotherapy for colon cancer admitted for syncope Diagnoses Syncope and collapse R55 Diarrhea R19.7 Vomiting R11.10 Acute kidney injury N17.9 H/O Clostridium difficile infection Z86.19 Primary hypertension I10 Hypertension type: primary hypertension Longstanding persistent atrial fibrillation I48.11 Atrial fibrillation type: longstanding persistent Malignant neoplasm of splenic flexure C18.5 Metastatic colon cancer to liver C18.9; C78.7
[2025-02-10 11:43] LABS: C.Diff PCR (Lab) NEGATIVE (Negative)
[2025-02-10] MEDS: sodium chloride 0.9% 1,000 ML 500 ML IV ×2 (14:04→16:17)
[2025-02-10] MEDS: pantoprazole 40 mg SDV IVP (17:39)
[2025-02-10] MEDS: atorvastatin 40 mg Tablet 20 MG PO (21:01)
[2025-02-10] MEDS: trazodone 150 mg Tablet 300 MG PO (21:01)
[2025-02-10] MEDS: acetaminophen 325 mg Tablet 650 MG PO (21:01)
[2025-02-11] VITALS (10 sets, daily range): BP systolic 92–119; BP diastolic 52–70; PULSE 57–85; RESP 15–18; TEMP 36.6–36.9; O2SAT 94–96
[2025-02-11] MEDS: sodium chloride 0.9% 1,000 ML 100 ML IV ×3 (02:41→22:20)
[2025-02-11] MEDS: heparin 5,000 unit/mL INJ 1 mL 5000 UNIT SUBCUT ×2 (04:55→17:37)
[2025-02-11 06:05] LABS: Basophils % 0.2 %; Eosinophils # 0.2 10^3/uL (0.0-0.8); Eosinophils % 4.3 %; Hematocrit 34.4 % (37-53); Lymphocytes # 1.4 10^3/uL (0.8-4.8); Lymphocytes % 27.2 %; Mean Corpuscular HGB Conc 30.8 g/dL (30-55); Mean Corpuscular Hemoglobin 31.3 pg (27-33); Mean Corpuscular Volume 101.5 fl (82-101); Mean Platelet Volume 9.4 fL (7.4-10.4); Monocytes # 0.7 10^3/uL (0.2-0.9); Monocytes % 14.4 %; Neutrophils # 2.64 10^3/uL (1.8-7.7); Neutrophils % 51.9 %; Nucleated Red Blood Cells % 0 %; Platelet Count 250 10^3/cmm (157-399); Red Blood Count 3.39 10^6/uL (3.85-5.65); Red Cell Distribution Width 16.3 % (12.1-15.1); White Blood Count 5.08 10^3/uL (3.29-11.43)
[2025-02-11 06:28] LABS: Alanine Aminotransferase 8 U/L (0-41); Albumin Level 3.1 g/dL (3.5-5.2); Alkaline Phosphatase 63 U/L (40-130); Anion Gap 13.8 (5-19); Aspartate Amino Transferase 10 U/L (0-40); Blood Urea Nitrogen 20 mg/dL (8-23); Calcium 8.7 mg/dL (8.5-10.5); Carbon Dioxide 24 mmol/L (22-29); Chloride 108 mmol/L (98-107); Creatinine Clr Calc Pharmacy 71.2697; Globulin 3.2 g/dL (1.3-4.6); Glomerular Filtration Rate 50.1 mL/min (90-130); Glucose 126 mg/dL (65-115); Magnesium 1.8 mg/dL (1.7-2.3); Osmolality Calculated 298 mOsm/kg (285-295); Potassium 3.8 mmol/L (3.5-5.1); Sodium 142 mmol/L (136-145); Total Bilirubin 0.2 mg/dL (0.15-1.2); Total Protein 6.3 g/dL (6.6-8.7)
[2025-02-11] MEDS: amiodarone 200 mg Tablet PO (09:23)
[2025-02-11] MEDS: gabapentin 300 mg Capsule PO ×3 (09:24→21:04)
[2025-02-11] MEDS: fidaxomicin 200 mg Tablet PO ×2 (09:24→17:36)
[2025-02-11] MEDS: piperacillin-tazobactam 3.375 GM in sodium chloride 0.9% (plus) 50 ML IV ×2 (09:25→17:37)
[2025-02-11] MEDS: oxyCODONE 5 mg IR Tab/Cap 10 MG PO ×2 (09:29→17:36)
[2025-02-11] MEDS: acetaminophen 325 mg Tablet 650 MG PO (09:30)
[2025-02-11 10:10] LABS: Cortisol Random 3.73 ug/dL (2.47-19.5)
[2025-02-11] MEDS: midodrine 5 mg TABLET PO ×3 (10:28→21:04)
--- NOTE | 2025-02-11 11:46 | P.PN_ITS ---
Subjective 2 Subjective: No acute events overnight. Patient has remained hemodynamically. Afebrile. Was significantly orthostatic yesterday with blood pressure dropping down to 60s. Patient states he has been feeling little better today. Vitals/I&O/Wt Last Vital Signs Temp 98.3 F 02/11/25 11:39 Pulse 76 02/11/25 11:39 Resp 15 02/11/25 11:39 BP 109/68 02/11/25 11:39 Pulse Ox 95 02/11/25 11:39 O2 Del Method Room Air 02/11/25 11:39 02/10/25 02/11/25 02/11/25 22:59 06:59 14:59 Intake Total 2360 / 4170 1485 / 5655 480 / 480 Output Total 950 / 1750 125 / 1875 300 / 300 Balance 1410 / 2420 1360 / 3780 180 / 180 Weight last 48 hrs Weight 126.371 kg Weight 122.833 kg Weight 112.491 kg Weight 121.109 kg Physical Exam 2 Narrative: General: No acute distress, AO x3, dehydrated, sick appearing HEENT: PERRLA, pupils bilaterally equal and reactive Chest: Normal vesicular breath sounds, no added sounds, equal good air entry bilaterally CVS: S1-S2 regular, no murmurs, no tachycardia, no gallops, no rubs Abdomen: Soft, nontender, no organomegaly, bowel sounds present, central healed vertical scar, colostomy in place with greenish blackish liquid watery bowel movement Neuro: No focal deficits, no facial deformity, AO x3, power 5/5 in all limbs Data 02/11/25 05:40 02/11/25 05:40 Micro: Microbiology 02/09/25 10:37 Stool Lactoferrin - Final Stool A&P Assessment and plan (1) Syncope and collapse: Most likely in setting orthostatic hypotension due to dehydration because of diarrhea and vomiting and poor oral intake recently along with ongoing chemotherapy. Positive orthostatic. Fall precautions. Continue with normal saline 100 cc/h. Telemetry. Physical therapy evaluation. (2) Diarrhea: History of C. difficile. On chronic suppression. C. difficile negative. History of recurrent C. difficile. For now as patient is on IV antibiotics continue with Dificid. Will plan to discharge back on oral empiric therapy of 125 mg daily. Normal saline at 100 cc/h. As patient is on chemotherapy cannot rule out mild gastroenteritis. Blood culture if patient spikes a fever. For now continue with IV Zosyn. Stool studies. (3) Orthostatic hypotension: History of orthostatic hypotension in the past as well. Currently worsening because of dehydration. Continue with IV hydration as above. Check orthostatic blood pressures every shift. Start on midodrine 5 mg 3 times daily. (4) Acute kidney injury: Baseline creatinine recently within last 1 year has been ranging from 1-1.4. Creatinine down to baseline. Most likely in setting of dehydration. Does have history of kidney stones. Appreciate CT on pelvis without contrast with no concerns for obstructive nephropathy. Does have nonobstructive kidney stones bilaterally.. Medical reconciliation for nephrotoxic drugs. Strict input output charting. IV fluid as above. (5) H/O Clostridium difficile infection: (6) Vomiting: Zofran as needed. Protonix daily. Resolved. Advance to regular diet. (7) Hypertension: Goal blood pressure less than 140/90 mmHg. Continue to monitor. (8) Afib: Takes amiodarone 200 mg daily at home, digoxin. Given TALON continue to hold off on digoxin. Normal digoxin level. Restart home dose of digoxin. Not on anticoagulation as an outpatient. Last echocardiogram from December 2024 showed an EF of 60% with mild LVH, biatrial enlargement (9) Malignant neoplasm of splenic flexure: (10) Metastatic colon cancer to liver: Plan CODE STATUS: will be DPOA. Full code. Protonix OPD prophylaxis Heparin for DVT prophylaxis Advance to regular diet. PDMP PDMP Reviewed: Not Reviewed Attestations 2 Medical Necessity Statement*: Requires further hospitalization for management of orthostatic hypotension in setting of dehydration because of her nausea, vomiting and diarrhea in a patient on chemotherapy for colon cancer post colostomy, recurrent C. difficile Diagnoses Syncope and collapse R55 Diarrhea R19.7 Orthostatic hypotension I95.1 Acute kidney injury N17.9 H/O Clostridium difficile infection Z86.19 Vomiting R11.10 Primary hypertension I10 Hypertension type: primary hypertension Longstanding persistent atrial fibrillation I48.11 Atrial fibrillation type: longstanding persistent Malignant neoplasm of splenic flexure C18.5 Metastatic colon cancer to liver C18.9; C78.7
[2025-02-11] MEDS: pantoprazole 40 mg SDV IVP (17:46)
[2025-02-11] MEDS: atorvastatin 40 mg Tablet 20 MG PO (21:04)
[2025-02-11] MEDS: trazodone 150 mg Tablet 300 MG PO (21:04)
[2025-02-12 00:03] VITALS: RESP 18; O2SAT 96
[2025-02-12] MEDS: piperacillin-tazobactam 3.375 GM in sodium chloride 0.9% (plus) 50 ML IV (00:03)
[2025-02-12] MEDS: oxyCODONE 5 mg IR Tab/Cap 10 MG PO ×2 (00:03→06:36)
[2025-02-12 04:00] VITALS: BP 118/61; PULSE 69; RESP 18; TEMP 36.8; O2SAT 96
[2025-02-12] MEDS: heparin 5,000 unit/mL INJ 1 mL 5000 UNIT SUBCUT (05:51)
[2025-02-12 06:36] VITALS: RESP 18; O2SAT 96
[2025-02-12] MEDS: acetaminophen 325 mg Tablet 650 MG PO (06:36)
[2025-02-12 06:39] LABS: Basophils % 0.6 %; Eosinophils # 0.2 10^3/uL (0.0-0.8); Eosinophils % 5.1 %; Hematocrit 32.9 % (37-53); Lymphocytes # 1.4 10^3/uL (0.8-4.8); Lymphocytes % 30.5 %; Mean Corpuscular HGB Conc 30.1 g/dL (30-55); Mean Corpuscular Hemoglobin 30.5 pg (27-33); Mean Corpuscular Volume 101.2 fl (82-101); Mean Platelet Volume 9.7 fL (7.4-10.4); Monocytes # 0.6 10^3/uL (0.2-0.9); Monocytes % 13.6 %; Neutrophils # 2.24 10^3/uL (1.8-7.7); Neutrophils % 47.9 %; Nucleated Red Blood Cells % 0 %; Platelet Count 209 10^3/cmm (157-399); Red Blood Count 3.25 10^6/uL (3.85-5.65); Red Cell Distribution Width 16.4 % (12.1-15.1); White Blood Count 4.69 10^3/uL (3.29-11.43)
[2025-02-12 06:53] LABS: Alanine Aminotransferase 6 U/L (0-41); Albumin Level 3.1 g/dL (3.5-5.2); Alkaline Phosphatase 55 U/L (40-130); Anion Gap 11.3 (5-19); Aspartate Amino Transferase 12 U/L (0-40); Blood Urea Nitrogen 18 mg/dL (8-23); Calcium 8.7 mg/dL (8.5-10.5); Carbon Dioxide 24 mmol/L (22-29); Chloride 110 mmol/L (98-107); Creatinine Clr Calc Pharmacy 101.7003; Globulin 2.7 g/dL (1.3-4.6); Glomerular Filtration Rate 73.9 mL/min (90-130); Glucose 116 mg/dL (65-115); Magnesium 1.6 mg/dL (1.7-2.3); Osmolality Calculated 295 mOsm/kg (285-295); Phosphorus 2.2 mg/dL (2.5-4.5); Potassium 4.3 mmol/L (3.5-5.1); Sodium 141 mmol/L (136-145); Total Bilirubin 0.2 mg/dL (0.15-1.2); Total Protein 5.8 g/dL (6.6-8.7)
[2025-02-12 07:48] VITALS: BP 116/60; BP 119/64; BP 129/63; PULSE 67; PULSE 76; PULSE 87; RESP 17; TEMP 36.5; O2SAT 98
--- NOTE | 2025-02-12 08:33 | P.DS_ITS ---
Discharge Providers Date of Admission: 02/09/25 16:00 Date of Discharge: February 12, 2025 Attending Provider at Admission: Blas Hurt MD Attending Provider at Discharge: Blas Hurt MD Primary Care Provider: Al Álvarez MD Diagnoses at Discharge Discharge Diagnosis (1) Syncope and collapse: Status: Acute (2) Diarrhea: Status: Acute (3) Orthostatic hypotension: Status: Acute (4) Acute kidney injury: Status: Acute (5) H/O Clostridium difficile infection: Status: Acute (6) Vomiting: Status: Acute (7) Hypertension: Status: Acute Qualifiers: Hypertension type: primary hypertension Qualified Code(s): I10 - Essential (primary) hypertension (8) Afib: Status: Acute Qualifiers: Atrial fibrillation type: longstanding persistent Qualified Code(s): I48.11 - Longstanding persistent atrial fibrillation (9) Malignant neoplasm of splenic flexure: Status: Acute (10) Metastatic colon cancer to liver: Status: Acute Reason for Visit Reason for Visit: Syncope Brief History: Charan Voss is a 69 year old male with a past medical history of colon cancer, status post colostomy currently, on biweekly chemotherapy with last dose almost a week ago however does not recall the name of his medication at this time. Patient states he has been on the same chemotherapeutic regimen for the past year, it is not an immunotherapy. He presents to the emergency room today stating that since his most recent chemoinfusion he continued to become increasingly weak. He has had diarrhea over the past 3 to 4 days, this morning he had 1 episode of vomiting and abdominal discomfort. Usually his stoma output has pasty semisolid stools, however it has been briseida diarrhea for the past 3 to 4 days. Patient has a past medical history of recurrent C. difficile and is on chronic suppression with oral vancomycin 125 mg p.o. daily since the last 6 months. This morning as he was trying to take a shower while sitting in a spa chair he felt extremely dizzy and was going to pass out. The feeling persisted during the day therefore he presented into the emergency room. He was found to have evidence of acute kidney injury with a creatinine of 2.1, previous baseline being between 1.1-1.4. He has not urinated in over 24 hours. Additionally has a history of small bowel obstruction and states that the last time h his stoma output turned to diarrhea he had a bowel obstruction. He states he is hungry and would like to try to eat something today. No fever chills. No cough chest pain dyspnea or palpitations. Denies any dysuria No headache photophobia or other symptoms. Hospital Course Hospital Course Patient was admitted to the hospital further evaluation and management of dizziness in setting of orthostatic hypotension because of dehydration. He was started on IV fluids. He was orthostatic positive on admission which improved with IV fluids. During hospitalization his blood culture, stool for C. difficile remain negative. Treatment and his symptoms improved. He did continue to have positive orthostatics for which oral midodrine was added. He has been discharged in hemodynamically stable condition with advised to take midodrine 5 mg 3 times a day to be held for systolic blood pressure of less than 100 mmHg to be withheld for systolic of more than 120 mmHg. His hemoglobin did trend down to 9.9 which is most likely in setting of dilution with IV fluids. He still recheck CBC in 1 week. He is been discharged on Protonix and Carafate twice daily. Physical Exam Narrative: General: No acute distress, AO x3, dehydrated, sick appearing HEENT: PERRLA, pupils bilaterally equal and reactive Chest: Normal vesicular breath sounds, no added sounds, equal good air entry bilaterally CVS: S1-S2 regular, no murmurs, no tachycardia, no gallops, no rubs Abdomen: Soft, nontender, no organomegaly, bowel sounds present, central healed vertical scar, colostomy in place with greenish blackish liquid watery bowel movement Neuro: No focal deficits, no facial deformity, AO x3, power 5/5 in all limbs Discharge Data Studies Completed and Pending Completed Studies During Hospitalization Category Date Time Status CT abdomen pelvis wo con [id number] Stat Cat Scan 02/09/25 16:[address] head wo con* [id number] Stat Cat Scan 02/09/25 14:03 Completed XR chest 1V portable [id number] Stat Exams 02/09/25 13:48 Completed Pending at discharge Category Date Time Status OVA and Parasites, Conc and PE Routine Lab 02/09/25 10:37 Received Salmonella / Shigella / Campy Routine Lab 02/09/25 10:37 Received Radiology Impressions Chest X-Ray 02/09/25 13:48 IMPRESSION: 1. No acute cardiopulmonary finding. Head CT 02/09/25 14:03 IMPRESSION: 1. No acute intracranial hemorrhage or edema. 2. Mild symmetric atrophy and small vessel disease. 3. No scalp hematoma. Abdomen/Pelvis CT 02/09/25 16:36 IMPRESSION: 1. No specific new acute intraabdominal or intrapelvic process. 2. Correlate with urinalysis since there is redemonstration of urinary bladder wall thickening to exclude cystitis. 3. Redemonstration of hyperdense area in the interpolar region of the right kidney with limited evaluation due to a noncontrast examination. Can not exclude solid lesion versus hyperdense cyst. 4. Additional incidental/chronic findings as above. COMMENTS: Consistent with the [employer]'s Incidental Findings Committee white paper (J Am Dg Radiol 2018): Any incidental renal lesion less than 1 cm or classified as too small to characterize, or any incidental cystic renal lesion characterized as simple-appearing, is likely benign. No follow-up imaging is recommended for these lesions per consensus recommendations based on imaging criteria. Microbiology 02/09/25 10:37 Stool Stool Lactoferrin - Final Laboratory Results WBC 4.69 10^3/uL (3.29-11.43) 02/12/25 05:50 RBC 3.25 10^6/uL (3.85-5.65) L 02/12/25 05:50 Hgb 9.90 g/dL (11.27-16.99) L 02/12/25 05:50 Hct 32.9 % (37-53) L 02/12/25 05:50 MCV 101.2 fl (82-101) H 02/12/25 05:50 MCH 30.5 pg (27-33) 02/12/25 05:50 MCHC 30.1 g/dL (30-55) 02/12/25 05:50 RDW 16.4 % (12.1-15.1) H 02/12/25 05:50 Plt Count 209 10^3/cmm (157-399) 02/12/25 05:50 MPV 9.7 fL (7.4-10.4) 02/12/25 05:50 Neut % (Auto) 47.9 % 02/12/25 05:50 Lymph % (Auto) 30.5 % 02/12/25 05:50 Toole % (Auto) 13.6 % 02/12/25 05:50 Eos % (Auto) 5.1 % 02/12/25 05:50 Baso % (Auto) 0.6 % 02/12/25 05:50 Neut # (Auto) 2.24 10^3/uL (1.8-7.7) 02/12/25 05:50 Lymph # (Auto) 1.4 10^3/uL (0.8-4.8) 02/12/25 05:50 Toole # (Auto) 0.6 10^3/uL (0.2-0.9) 02/12/25 05:50 Eos # (Auto) 0.2 10^3/uL (0.0-0.8) 02/12/25 05:50 Baso # (Auto) 0.0 10^3/uL (0.0-0.1) 02/12/25 05:50 Nucleated RBC % (auto) 0 % 02/12/25 05:50 Nucleated RBCs # 0.0 /100WBC 02/12/25 05:50 Sodium 141 mmol/L (136-145) 02/12/25 05:50 Potassium 4.3 mmol/L (3.5-5.1) 02/12/25 05:50 Chloride 110 mmol/L (98-107) H 02/12/25 05:50 Carbon Dioxide 24 mmol/L (22-29) 02/12/25 05:50 Anion Gap 11.3 (5-19) 02/12/25 05:50 BUN 18 mg/dL (8-23) 02/12/25 05:50 Creatinine 1.0 mg/dL (0.7-1.2) 02/12/25 05:50 GFR Calculation 73.9 mL/min (90-130) L 02/12/25 05:50 Glucose 116 mg/dL (65-115) H 02/12/25 05:50 Calculated Osmolality 295 mOsm/kg (285-295) 02/12/25 05:50 Lactic Acid 2.2 mmol/L (0.5-2.2) 02/09/25 14:15 Lactic Acid (Sepsis) 2.0 mmol/L (0.5-2.2) 02/09/25 18:42 Calcium 8.7 mg/dL (8.5-10.5) 02/12/25 05:50 Phosphorus 2.2 mg/dL (2.5-4.5) L 02/12/25 05:50 Magnesium 1.6 mg/dL (1.7-2.3) L 02/12/25 05:50 Iron 41 ug/dL (59-158) L 02/09/25 14:15 TIBC 228 mcg/dl 02/09/25 14:15 % Saturation 17.9 % (20-50) L 02/09/25 14:15 Unsat Iron Binding 187 ug/dL (112-347) 02/09/25 14:15 Total Bilirubin 0.2 mg/dL (0.15-1.2) 02/12/25 05:50 AST 12 U/L (0-40) 02/12/25 05:50 ALT 6 U/L (0-41) 02/12/25 05:50 Alkaline Phosphatase 55 U/L (40-130) 02/12/25 05:50 Total Protein 5.8 g/dL (6.6-8.7) L 02/12/25 05:50 Albumin 3.1 g/dL (3.5-5.2) L 02/12/25 05:50 Globulin 2.7 g/dL (1.3-4.6) 02/12/25 05:50 Vitamin B12 696 pg/mL (232-1245) 02/09/25 14:15 Folate > 20.0 ng/mL (4.5-32.2) 02/10/25 04:00 Procalcitonin 0.40 ng/mL (0-0.5) 02/10/25 04:00 Random Cortisol 3.73 ug/dL (2.47-19.5) 02/11/25 05:40 Urine Color Yellow (Yellow) 02/10/25 09:40 Urine Appearance Clear (CLEAR) 02/10/25 09:40 Urine pH 5.0 (5-7) 02/10/25 09:40 Ur Specific Crawford 1.024 (1.005-1.030) 02/10/25 09:40 Urine Protein 1+ (Negative) A 02/10/25 09:40 Urine Glucose (UA) Negative (Normal) 02/10/25 09:40 Urine Ketones Trace (Negative) 02/10/25 09:40 Urine Blood Negative (Negative) 02/10/25 09:40 Urine Nitrate Negative (Negative) 02/10/25 09:40 Urine Bilirubin Negative (Negative) 02/10/25 09:40 Urine Urobilinogen 1.0 mg/dL (Negative) 02/10/25 09:40 Ur Leukocyte Esterase Negative (Negative) 02/10/25 09:40 Urine RBC 0-2 /hpf (0-2) 02/10/25 09:40 Urine WBC 0-5 /hpf (0-5) 02/10/25 09:40 Ur Squamous Epith Cells 0-5 /hpf (0-5) 02/10/25 09:40 Amorphous Sediment Not Reportable 02/10/25 09:40 Urine Bacteria None seen /hpf (NONE) 02/10/25 09:40 Hyaline Casts 12.81 /lpf 02/10/25 09:40 Ur Random Sodium < 10 mmol/L 02/09/25 09:40 Ur Random Potassium 36 mmol/L 02/09/25 09:40 Ur Random Chloride 11 mmol/L 02/09/25 09:40 Urine Creatinine 290 mg/dL (39-259) H 02/09/25 09:40 Digoxin 0.6 ng/mL (0.6-1.2) 02/09/25 14:15 C. difficile (PCR) Negative (Negative) 02/09/25 10:37 Vitals Last Vital Signs Temp 97.7 F 02/12/25 07:48 Pulse 76 02/12/25 07:48 Resp 17 02/12/25 07:48 BP 119/64 02/12/25 07:48 Pulse Ox 98 02/12/25 07:48 O2 Del Method Room Air 02/12/25 07:48 Discharge Plan Discharge Patient Disposition: Home Health Service Condition: Stable Prescriptions: New midodrine 5 mg Tablet 5 mg PO TID Qty: 90 0RF Rx Instructions: Hold for SBP more than 120 mmhg pantoprazole [Protonix] 40 mg tablet,delayed release (DR/EC) 40 mg PO QAM Qty: 60 0RF Rx Instructions: Twice daily for next 2 weeks followed by once daily sucralfate [Carafate] 1 gram tablet 1 g PO BID 28 Days Qty: 56 0RF Continued allopurinol 300 mg tablet 300 mg PO DAILY resveratrol 250 mg capsule 250 mg PO DAILY saw palmetto 500 mg capsule 500 mg PO DAILY lovastatin 40 mg tablet 40 mg PO BEDTIME amiodarone [Pacerone] 200 mg tablet 200 mg PO DAILY Qty: 90 3RF acetaminophen 500 mg Tablet 1,000 mg PO Q6H PRN (Reason: Pain) trazodone 150 mg tablet 300 mg PO BEDTIME vancomycin 125 mg capsule 125 mg PO DAILY prochlorperazine maleate 10 mg tablet 10 mg PO Q6H PRN (Reason: Nausea And Vomiting) testosterone 20.25 mg/1.25 gram (1.62 %) gel in metered-dose pump 3 pump topical DAILY clobetasol 0.05 % cream 1 applic TOPICAL BID PRN (Reason: hands) gabapentin 300 mg capsule 300 mg PO TID digoxin 125 mcg (0.125 mg) tablet 0.125 mg PO DAILY epinephrine 0.3 mg/0.3 mL auto-injector See Rx Instructions .ROUTE .COMPLEX Rx Instructions: INJECT CONTENTS OF 1 PEN NEEDED FOR ALLERGIC REACTION albuterol sulfate 90 mcg/actuation HFA aerosol inhaler 2 puff INHALATION Q4H PRN (Reason: Shortness Of Breath) oxycodone 10 mg tablet 10 mg PO Q6H PRN (Reason: Pain) Changed furosemide 20 mg tablet 20 mg PO DAILY PRN (Reason: swelling) Qty: 2 0RF Discharge Orders: Discharge Order (Routine); Ordered 02/12/25 Ordered By: Blas Hurt Referrals: [facility]) [Outside] Al Álvarez MD [Primary Care Provider, Primary Care Provider] - 02/17/25 1:45 pm Discharge Diet: Usual diet Discharge Activity: Resume usual activity and Increase activity as tolerated Patient Instructions: Sucralfate (By mouth) (Carafate), Amiodarone (By mouth), Pantoprazole (By mouth) (Protonix), Syncope (DC), Hypotension (DC), Opioid Safety Activity Restrictions/Additional Instructions: Repeat CBC in 1 week Midodrine 5mg three times day for sbp less than 100 mmhg. hold for bp more than 120 mmhg Discharge Attestations Time Spent in Discharge Care*: greater than 30 min Specific Discharge Activities: educating patient, discussing with pcp/other providers, discussing with field case manager/social workers/dc planners, documenting/other paperwork and evaluating patient/reviewing data Status at Discharge: Cognitive status at discharge: cognitively intact , Behavioral status at discharge: cooperative , Functional status at discharge: independent ambulation , Overall status at discharge: patient is back to baseline Quality Metrics Clinical Quality Measures [ No reported AMI, CVA or VTE this stay] Coding Level of Care Code 41785 Total time (in minutes) for Discharge: 65 Diagnoses Syncope and collapse R55 Diarrhea R19.7 Orthostatic hypotension I95.1 Acute kidney injury N17.9 H/O Clostridium difficile infection Z86.19 Vomiting R11.10 Primary hypertension I10 Hypertension type: primary hypertension Longstanding persistent atrial fibrillation I48.11 Atrial fibrillation type: longstanding persistent Malignant neoplasm of splenic flexure C18.5 Metastatic colon cancer to liver C18.9; C78.7
--- NOTE | 2025-02-12 09:13 | PC.SOCIAL ---
IMM Update Pg 2 of IMM updated and reviewed with patient, who verbalized understanding. Copy provided.
[2025-02-12 10:41] VITALS: PULSE 68
[2025-02-12] MEDS: midodrine 5 mg TABLET PO (10:41)
[2025-02-12] MEDS: digoxin 125 mcg Tablet PO (10:41)
[2025-02-12] MEDS: gabapentin 300 mg Capsule PO (10:41)
[2025-02-12] MEDS: fidaxomicin 200 mg Tablet PO (10:41)
[2025-02-12] MEDS: amiodarone 200 mg Tablet PO (10:43)
--- NOTE | 2025-02-12 11:08 | PC.NURSE ---
Discharge Note Patient discharged to home via private vehicle accompanied by . Discharge instructions reviewed with patient and/or medical billing representative. Mobile pharmacy medications and/or prescriptions provided. Belongings/home medications returned.
[2025-02-12 11:09] VITALS: BP 129/63; PULSE 67; RESP 17; TEMP 36.5; O2SAT 98
== END 2025-02-12 11:12 | disposition home health service (06) | DRG 683 ==
LOC: ER 15:29 → MEDSURG 18:31
PROVIDERS: Admitting Provider Student in an Organized Health Care Education/Training Program; Emergency Provider Emergency Medicine; PCP Family Medicine; Visit Provider Student in an Organized Health Care Education/Training Program
DX: N17.9 Acute kidney failure, unspecified (principal); C18.5 Malignant neoplasm of splenic flexure; I48.11 Longstanding persistent atrial fibrillation; C78.7 Secondary malignant neoplasm of liver and intrahepatic bile duct; F84.5 Asperger's syndrome; R19.7 Diarrhea, unspecified; I95.1 Orthostatic hypotension; I10 Essential (primary) hypertension; E86.0 Dehydration; E04.9 Nontoxic goiter, unspecified; J32.9 Chronic sinusitis, unspecified; E78.5 Hyperlipidemia, unspecified; G47.33 Obstructive sleep apnea (adult) (pediatric); G89.29 Other chronic pain; N52.9 Male erectile dysfunction, unspecified; Z98.1 Arthrodesis status; Z79.60 Long term (current) use of unspecified immunomodulators and immunosuppressants; Z79.891 Long term (current) use of opiate analgesic; Z93.3 Colostomy status; Z90.49 Acquired absence of other specified parts of digestive tract
CPT/HCPCS: 36415; 36591; 70450; 71045; 74176; 80053; 80162; 81001; 82436; 82533; 82570; 82607; 82746; 83540; 83550; 83605; 83630; 83735; 84100; 84133; 84145; 84300; 85025; 87045; 87177; 87209; 87427; 87449; 87493; 93005; 94664; 96361; 96372; 96374; 97116; 97162; 97530; 99285; J1644; J2405; J2470; J2543; J7030; J9999

== ENCOUNTER 2025-03-04 18:42 | Inpatient (IN) | payer MEDICARE, SELFPAY ==
[2025-03-04] VITALS (21 sets, daily range): BP systolic 72–116; BP diastolic 47–64; PULSE 85–128; RESP 19–28; TEMP 37–39.1; O2SAT 87–100
--- NOTE | 2025-03-04 18:55 | XR_ITS ---
WS: [id number] XR chest 1V portable [id number] REASON FOR EXAM: Possible Sepsis FINDINGS: Right IJ central venous catheter remains in proper position. Compared to 02/09/2025, the lungs are hypoexpanded. There is central pulmonary venous congestion. There is a small amount of fluid in the minor fissure. There are reticular interstitial and groundglass opacities in the right lower lung field with peribronchial cuffing. There is significant tortuosity and ectasia of the thoracic aorta there is cardiomegaly. Thoracic Marr rods. XR/XR chest 1V portable [id number] IMPRESSION: Even though the lungs are hypoexpanded there is likely interval development of right lower lung opacities and a small amount of fluid in the minor fissure. Th e findings are suggestive of early congestive heart failure however a pneumonit is is not readily excluded.
--- NOTE | 2025-03-04 18:57 | ECG_ITS ---
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
--- NOTE | 2025-03-04 19:00 | ECG_ITS ---
[facility] Test Date: 2025-03-05 Pat Name: Charan Voss Department: Room: ICU01 Gender: Male Health/Safety Job Titles: : 1955 Requested By: Daria Finley Order Number: [id number] Hilary MD: MARGAUX STOVALL Measurements Intervals [place] Rate: 87 P: 0 IN: 0 QRS: -15 QRSD: 114 T: 85 QT: 341 QTc: 412 Interpretive Statements ATRIAL FIBRILLATION POSSIBLE ANTERIOR MYOCARDIAL INFARCTION , OF INDETERMINATE AGE [30 ms Q WAVE IN V3/V4, OR R < 0.2 mV IN V4] Compared to ECG 03/04/2025 21:02:49 No significant changes Electronically Signed On 03-06-2025 23:56:34 CDT by MARGAUX STOVALL [email or web address]
[2025-03-04] MEDS: sodium chloride 0.9% 1,000 ML 999 ML IV ×3 (19:01→20:14)
--- NOTE | 2025-03-04 19:03 | W.ED.WEAKNES ---
HPI - Weakness General: Chief complaint: Weakness Stated complaint: weakness Time Seen by Provider: 03/04/25 18:44 History of Present Illness: 70-year-old man with a history of colon cancer with metastatic disease to the liver, atrial fibrillation, cardiomegaly, hypertension, polycythemia, gout, Asperger's, hyperlipidemia, obstructive sleep apnea, and chronic pain syndrome who presents emergency room by ambulance with fever, weakness and tachycardia. He has been receiving biweekly chemotherapy. Today he is febrile and tachycardic with A-fib in the 130s. He is diaphoretic. He does not have any pain complaints. No chest pain. No abdominal pain. He was admitted to the hospital recently with orthostasis and dehydration. Review of Systems Narrative: Constitutional symptoms: Negative except as documented in HPI. Skin symptoms: Negative except as documented in HPI. Eye symptoms: Negative except as documented in HPI. ENMT symptoms: Negative except as documented in HPI. Respiratory symptoms: Negative except as documented in HPI. Cardiovascular symptoms: Negative except as documented in HPI. Gastrointestinal symptoms: Negative except as documented in HPI. Genitourinary symptoms: Negative except as documented in HPI. Musculoskeletal symptoms: Negative except as documented in HPI. Neurologic symptoms: Negative except as documented in HPI. Psychiatric symptoms: Negative except as documented in HPI. Endocrine symptoms: Negative except as documented in HPI. PFSH ED PFSH: Medical History (Updated 03/04/25 @ 23:12 by Daria Junior MD) Orthostatic hypotension Complication of ostomy Ventilator dependent Intra-abdominal abscess post-procedure Metastatic colon cancer to liver Malignant neoplasm of splenic flexure Renal hematoma Colostomy complication C. 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 (~08/2022) hospitalized in [place] Chronic sinusitis of both maxillary sinuses Gout Asperger syndrome mild Dyslipidemia Degenerative joint disease (DJD) of lumbar spine Obstructive sleep apnea Chronic low back pain Substernal goiter Asthma Restrictive lung disease due to kyphoscoliosis Suspected exposure to asbestos Allergies Right renal stone Testosterone deficiency On TRT for 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 Erectile dysfunction Opioid contract exists previous Chronic pain syndrome Surgical History Hx of bilateral cataract extraction History of colostomy (11/01/22) Colostomy revision for control of bleeding History of exploratory laparotomy (10/15/22) Exploratory laparotomy with partial colon resection and with end colostomy formation Status post left hemicolectomy (10/08/22) laparoscopic converted to open, with splenic flexure takedown and right colon mobilization, primary anastamosis History of back surgery History of shoulder surgery History of appendectomy H/O arthroscopic knee surgery H/O ankle fusion H/O wrist surgery S/P ureteral stent placement Family History Grandfather CAD (coronary artery disease) Family/Other Cancer Grandmother Dementia Stroke Mother Lung disease Other Hypertension Denies family history of Rheumatoid arthritis Diabetes Lupus Clotting disorder Hyperlipidemia Chronic kidney disease (CKD) Suicide Anesthesia complication Bleeding disorder Social History Smoking and tobacco/nicotine status: former use of tobacco/nicotine Quit status (tobacco/nicotine): has quit using Year quit tobacco: 1976 [id number] Second hand smoke exposure: Yes Alcohol intake: never Substance/Drug Use: never Lives independently: Yes Current occupational status: retired Pets and animals: Yes Do you think of yourself as: Straight/Heterosexual Current gender identity: Male Physical Exam Narrative: EXAM NARRATIVE: General: Alert, appears in some distress Skin: Warm, diaphoretic Head: Normocephalic, atraumatic. Neck: Supple, trachea midline. Eye: Extraocular movements are intact. Ears, nose, mouth and throat: mucosa moist. Cardiovascular: Irregular, tachycardic, Normal peripheral perfusion. Respiratory: Lungs are clear to auscultation, respirations are non-labored, breath sounds are equal, Symmetrical chest wall expansion. Gastrointestinal: Soft, Nontender, Non distended Musculoskeletal: Normal ROM, no deformity. Neurological: Alert and oriented, No focal neurological deficit observed. Psychiatric: Cooperative, appropriate mood & affect. Course Vital Signs: Vital signs: Vital Signs Temperature 98.6 F 03/04/25 22:30 Pulse Rate 88 03/04/25 23:05 Respiratory Rate 20 H 03/04/25 23:05 Blood Pressure 82/48 03/04/25 23:05 Pulse Oximetry 98 03/04/25 23:05 Oxygen Delivery Me thod Nasal Cannula 03/04/25 23:05 Oxygen Flow Rate 3 03/04/25 23:05 MDM - Weakness Medical Decision Making Medical decision making: Differential diagnosis for patient presenting with generalized weakness including but not limited to and based on the above HPI, review of systems and physical exam: Sepsis. Dehydration. Renal failure. Electrolyte abnormalities. Anemia. Congestive heart failure. Hypotension. Coronary syndrome. Hepatitis. Cirrhosis. Infections such as pneumonia, urinary tract infection, Tick bourne illness, Cellulitis, Viral infections including influenza and Covid-19. Workup: labwork and lab/exam driven imaging ordered to evaluate, rule in and rule out above pathologies. EKG: Time 184. Rate 139. Atrial fibrillation with rapid ventricular response, No ST-T changes, no ectopy, This was reviewed and interpreted by myself the ER physician at 1850 Repeat EKG: Time 2101. Rate 99. Atrial fibrillation with controlled rate, No ST-T changes, no ectopy, This was reviewed and interpreted by myself the ER physician at 2106. Rate has come down to 99. Lab Review: Laboratory results were reviewed and interpreted by myself the emergency room physician. White count is only 8.5 with some left shift at 83%. Hemoglobin stable 11.4. Acute renal insufficiency with a BUN/creatinine of 19 and 1.6. Lactate is elevated at 3.5. Flu COVID and RSV are negative. Initial troponin is 160. Repeat troponin is 209 with a delta of 50. I think this is likely from strain from sepsis and A-fib with RVR. CT of the chest abdomen pelvis: Mild cardiomegaly. Colostomy. Metastatic disease. Gallbladder appears a bit large but does not appear to have cholecystitis. No acute process. This was reviewed and interpreted by myself the emergency room physician. I also reviewed the radiology report. I reviewed the patient's medical record. Reexamination: Patient has had improved heart rate but blood pressure still been a bit soft. Started Levophed. Patient is somewhat somnolent but no focal motor deficits. He is requiring 3 to 4 L nasal cannula. Consultation: I spoke with Dr. Grijalva about the patient and she agrees to admission. He will require ICU admission as he is on pressors and still has a very soft blood pressure. Readings have been remaining above 60 Assessment and plan: Sepsis Immunocompromise patient A-fib with RVR Hypotension Fever Acute renal insufficiency -Urinalysis still pending. At this point there would be most likely source of infection. If not he may just be bacteremic. But he is febrile tachycardic hypotensive with an elevated lactate and now requiring pressors. ?Levophed started. ?Fluid ordered at 1855. Zyvox and Merrem at 1932. Based on vitals and temperature. -3 L normal saline bolus. Fluid volumes based on ideal body weight. -Broad-spectrum antibiotics were administered. Zyvox and meropenem -Sepsis quality measures. -Lactic acid with a reflex was ordered. -Blood cultures were ordered. -I discussed the patient with the hospitalist on-call who is admitting the patient. - Discussed findings and plan with patient. Answered any questions. - All laboratory values were reviewed and interpreted personally by myself, the ER physician - All imaging was reviewed and interpreted personally by myself, the ER physician. - Evaluation and treatment of this problem were appropriate in the emergency setting Critical care -I spent a total of >55 minutes of critical care time managing the patient, independent of any other practitioner. -The time involved in the performance of separately reportable procedures was not counted towards critical care time. Lab Data 03/04/25 18:53 03/04/25 18:53 Radiology Impressions Chest/Abdomen/Pelvis CT 03/04/25 19:52 IMPRESSION: 1. Mild to moderate cardiomegaly. 2. Air in the superior portion of the left brachycephalic vein and to lesser extent the right atrium and right ventricle most consistent with incidental air from intravenous fluids. 3. Mild nonspecific pleural thickening in the posterior portions of the lungs bilaterally. 4. Right Mediport catheter. IMPRESSION: 1. Severe fatty infiltration of the liver. 2. Right lower quadrant colostomy with prominent partial colectomy.. 3. Stable rectosigmoid stump. 4. Continued heterogeneous metastatic disease in the inferior posterior aspect of the right liver which is better visualized on images with contrast. 5. Interval appearance of enlarged 6.5 x 5.0 cm greater than or equal to 5.0 cm transverse diameter gallbladder consistent with gallbladder hydrops. No obvious gallbladder wall thickening. COMMENTS: Consistent with the [employer]'s Incidental Findings Committee white paper (J Am Dg Radiol 2018): Any incidental renal lesion less than 1 cm or classified as too small to characterize, or any incidental cystic renal lesion characterized as simple-appearing, is likely benign. No follow-up imaging is recommended for these lesions per consensus recommendations based on imaging criteria. Laboratory Results WBC 8.49 10^3/uL (3.29-11.43) 03/04/25 18:53 RBC 3.66 10^6/uL (3.85-5.65) L 03/04/25 18:53 Hgb 11.40 g/dL (11.27-16.99) 03/04/25 18:53 Hct 37.7 % (37-53) 03/04/25 18:53 MCV 103.0 fl (82-101) H 03/04/25 18:53 MCH 31.1 pg (27-33) 03/04/25 18:53 MCHC 30.2 g/dL (30-55) 03/04/25 18:53 RDW 17.4 % (12.1-15.1) H 03/04/25 18:53 Plt Count 215 10^3/cmm (157-399) 03/04/25 18:53 MPV 10.0 fL (7.4-10.4) 03/04/25 18:53 Neut % (Auto) 83.2 % 03/04/25 18:53 Lymph % (Auto) 9.4 % 03/04/25 18:53 Owen % (Auto) 5.9 % 03/04/25 18:53 Eos % (Auto) 0.4 % 03/04/25 18:53 Baso % (Auto) 0.4 % 03/04/25 18:53 Neut # (Auto) 7.07 10^3/uL (1.8-7.7) 03/04/25 18:53 Lymph # (Auto) 0.8 10^3/uL (0.8-4.8) 03/04/25 18:53 Owen # (Auto) 0.5 10^3/uL (0.2-0.9) 03/04/25 18:53 Eos # (Auto) 0.0 10^3/uL (0.0-0.8) 03/04/25 18:53 Baso # (Auto) 0.0 10^3/uL (0.0-0.1) 03/04/25 18:53 Nucleated RBC % (auto) 0 % 03/04/25 18:53 Nucleated RBCs # 0.0 /100WBC 03/04/25 18:53 Specimen Type Arterial 03/04/25 19:06 Sample Site Radial, right 03/04/25 19:06 ABG pH 7.30 (7.35-7.45) L 03/04/25 19:06 ABG pCO2 54.8 mmHg (35-45) H 03/04/25 19:06 ABG pO2 74.7 mmHg (80.0-100.0) L 03/04/25 19:06 ABG HCO3 27.1 mmol/L (22-26) H 03/04/25 19:06 ABG O2 Saturation 94.1 03/04/25 19:06 ABG Base Excess 0.2 mmol/L (-2.0-2.0) 03/04/25 19:06 Blair Test Pos 03/04/25 19:06 A-a O2 Gradient 1.0 mmHg (5-10) L 03/04/25 19:06 Hematocrit 30.8 % (42-52) L 03/04/25 19:06 Hgb O2 Saturation 91.6 % (95-100) L 03/04/25 19:06 Carboxyhemoglobin 2.9 %THgb (0.4-20.1) 03/04/25 19:06 Methemoglobin < 0.0 % (0.4-1.5) L 03/04/25 19:06 Total Hemoglobin 10.1 g/dL (14-18) L 03/04/25 19:06 Sodium 139.0 mmol/L (131-143) 03/04/25 19:06 Potassium 3.6 mmol/L (3.5-5.0) 03/04/25 19:06 Glucose 150.0 mg/dL (70-115) H 03/04/25 19:06 Ionized Calcium 1.2 mmol/L (1.1-1.4) 03/04/25 19:06 O2 Delivery Device Nc 03/04/25 19:06 O2 Liters/Min 4.0 % 03/04/25 19:06 Tobacco Buyer ID [email or web address] 03/04/25 19:06 Sodium 140 mmol/L (136-145) 03/04/25 18:53 Potassium 4.8 mmol/L (3.5-5.1) 03/04/25 18:53 Chloride 100 mmol/L (98-107) 03/04/25 18:53 Carbon Dioxide 26 mmol/L (22-29) 03/04/25 18:53 Anion Gap 18.8 (5-19) 03/04/25 18:53 BUN 19 mg/dL (8-23) 03/04/25 18:53 Creatinine 1.6 mg/dL (0.7-1.2) H 03/04/25 18:53 GFR Calculation 42.9 mL/min (90-130) L 03/04/25 18:53 Glucose 154 mg/dL (65-115) H 03/04/25 18:53 Calculated Osmolality 295 mOsm/kg (285-295) 03/04/25 18:53 Lactic Acid 3.5 mmol/L (0.5-2.2) H 03/04/25 18:53 Calcium 9.0 mg/dL (8.5-10.5) 03/04/25 18:53 Total Bilirubin 1.2 mg/dL (0.15-1.2) 03/04/25 18:53 AST 41 U/L (0-40) H 03/04/25 18:53 ALT 18 U/L (0-41) 03/04/25 18:53 Alkaline Phosphatase 54 U/L (40-130) 03/04/25 18:53 Troponin T Baseline 158 ng/L (0-15) H* 03/04/25 18:53 Troponin T 120 Minute 209.6 ng/L (0-15) H 03/04/25 20:35 Delta Troponin T 51.6 ABS# (0-10) H* 03/04/25 20:35 C-Reactive Protein 243.2 mg/L (0.0-4.9) H 03/04/25 18:53 Total Protein 6.0 g/dL (6.6-8.7) L 03/04/25 18:53 Albumin 3.7 g/dL (3.5-5.2) 03/04/25 18:53 Globulin 2.3 g/dL (1.3-4.6) 03/04/25 18:53 Procalcitonin 1.43 ng/mL (0-0.5) H 03/04/25 18:53 Influenza A (PCR) Negative (Negative) 03/04/25 19:36 Influenza Type B (PCR) Negative (Negative) 03/04/25 19:36 RSV (PCR) Negative (Negative) 03/04/25 19:36 SARS-CoV-2 (PCR) Negative (Negative) 03/04/25 19:36 All radiology interpretation(s) finalized by discharge Discharge Plan Discharge Patient Disposition: Admitted As Inpatient Admit Provider: Anastacia Grijalva Clinical Impression: Sepsis, Acute renal failure, Hypotension, Elevated troponin, Atrial fibrillation with rapid ventricular response Condition: Stable Coding Level of Care Code ED Bowling Alley Attendant for Chg Fwd Related Data Home Medications ?Medication ?Instructions ?Recorded ?Confirmed allopurinol 300 mg tablet 300 mg PO DAILY 10/15/19 02/09/25 resveratrol 250 mg capsule 250 mg PO DAILY 11/15/20 02/09/25 saw palmetto 500 mg capsule 500 mg PO DAILY 11/15/20 02/09/25 acetaminophen 500 mg tablet 1,000 mg PO Q6H PRN Pain 10/09/22 02/09/25 trazodone 150 mg tablet 300 mg PO BEDTIME 10/09/22 02/09/25 gabapentin 300 mg capsule 300 mg PO TID 02/04/23 02/09/25 lovastatin 40 mg tablet 40 mg PO BEDTIME 02/05/23 02/09/25 albuterol sulfate 90 mcg/actuation 2 puff inhalation Q4H PRN 10/08/24 02/09/25 aerosol inhaler Shortness Of Breath digoxin 125 mcg (0.125 mg) tablet 0.125 mg PO DAILY 10/08/24 02/09/25 epinephrine 0.3 mg/0.3 mL See Rx Instructions .Route .COMPLEX 10/08/24 02/09/25 injection, auto-injector oxycodone 10 mg tablet 10 mg PO Q6H PRN Pain 10/08/24 02/09/25 vancomycin 125 mg capsule 125 mg PO DAILY 12/04/24 02/09/25 clobetasol 0.05 % topical cream 1 applic topical BID PRN hands 02/09/25 02/09/25 prochlorperazine maleate 10 mg 10 mg PO Q6H PRN Nausea And 02/09/25 02/09/25 tablet Vomiting testosterone 3 pump topical DAILY 02/09/25 02/09/25 Previous Rx's ?Medication ?Instructions ?Recorded amiodarone 200 mg tablet (Pacerone) 200 mg PO DAILY #90 tabs 01/14/25 furosemide 20 mg tablet 20 mg PO DAILY PRN swelling #2 tabs 02/12/25 midodrine 5 mg tablet 5 mg PO TID #90 tabs 02/12/25 pantoprazole 40 mg tablet,delayed 40 mg PO QAM #60 tabs 02/12/25 release (Protonix) sucralfate 1 gram tablet (Carafate) 1 g PO BID 4 weeks #56 tabs 02/12/25 Allergies Allergy/AdvReac Type Severity Reaction Status Date / Time apixaban Allergy Unknown Headaches Verified 03/04/25 21:49 blackberry Allergy Unknown ADR-Diarrhe Verified 11/25/24 14:48 a blueberry Allergy Unknown ADR-Diarrhe Verified 11/25/24 14:48 a egg Allergy Unknown DIARRHEA, Verified 03/04/25 21:49 VOMITING AND STOMACH CRAMPING raspberry Allergy Unknown ADR-Diarrhe Verified 11/25/24 14:48 a strawberry Allergy Unknown ADR-Diarrhe Verified 11/25/24 14:48 a tomato Allergy Unknown ADR-Gastrointestinal Verified 11/25/24 14:48 Upset oats Allergy DIARRHEA Verified 11/25/24 14:48 Opioids - Morphine Analogues Allergy ADR-Chest Verified 11/25/24 14:48 Pain caffeine AdvReac Unknown PALPITATION Verified 11/25/24 14:48 S apple AdvReac DIARRHEA, Verified 11/25/24 14:48 VOMITING AND CRAMPING meperidine (From Demerol) AdvReac EXCESSIVE Verified 11/25/24 14:48 SEDATION morphine AdvReac HALLUCINATI Verified 11/25/24 14:48 ONS berries Allergy Unknown Unknown Uncoded 02/17/25 13:52 FRYE Allergy Unknown Diarrhea Uncoded 02/17/25 13:52 raw tomatoes Allergy Unknown ADR-Gastrointestinal Uncoded 02/17/25 13:52 Upset
[2025-03-04 19:08] LABS: Basophils % 0.4 %; Eosinophils % 0.4 %; Hematocrit 37.7 % (37-53); Lymphocytes # 0.8 10^3/uL (0.8-4.8); Lymphocytes % 9.4 %; Mean Corpuscular HGB Conc 30.2 g/dL (30-55); Mean Corpuscular Hemoglobin 31.1 pg (27-33); Monocytes # 0.5 10^3/uL (0.2-0.9); Monocytes % 5.9 %; Neutrophils # 7.07 10^3/uL (1.8-7.7); Neutrophils % 83.2 %; Nucleated Red Blood Cells % 0 %; Platelet Count 215 10^3/cmm (157-399); Red Blood Count 3.66 10^6/uL (3.85-5.65); Red Cell Distribution Width 17.4 % (12.1-15.1); White Blood Count 8.49 10^3/uL (3.29-11.43)
[2025-03-04 19:18] LABS: ABG PCO2 54.8 mmHg (35-45); Arterial Blood Gas Hematocrit 30.8 % (42-52); Base Excess ABG 0.2 mmol/L (-2.0-2.0); Blood Gas Allen Test Pos; Blood Gas Operator Identificat gerca; Blood Gas Sample Site Radial, right; Blood Gas Sample Type Arterial; Carboxyhemoglobin 2.9 %THgb (0.4-20.1); HCO3 ABG 27.1 mmol/L (22-26); HGB O2 Sat 91.6 % (95-100); Ionized Calcium Level - ABG 1.2 mmol/L (1.1-1.4); Methemoglobin < 0.0 % (0.4-1.5); Oxygen Device NC; Oxygen Saturation ABG 94.1; PO2 ABG 74.7 mmHg (80.0-100.0); Potassium Level - ABG 3.6 mmol/L (3.5-5.0); Total Hemoglobin 10.1 g/dL (14-18)
[2025-03-04 19:36] LABS: Lactic Sepsis W/Reflex 3.5 mmol/L (0.5-2.2)
[2025-03-04] MEDS: linezolid premix 600 MG/300 ML PREMIX 300 MG IV (19:38)
[2025-03-04] MEDS: meropenem 500 mg SDV IVP (19:38)
[2025-03-04] MEDS: acetaminophen 1,000 MG/100 ML PIGGYBACK 400 MG IV (19:38)
[2025-03-04 19:39] LABS: Alanine Aminotransferase 18 U/L (0-41); Albumin Level 3.7 g/dL (3.5-5.2); Alkaline Phosphatase 54 U/L (40-130); Anion Gap 18.8 (5-19); Aspartate Amino Transferase 41 U/L (0-40); Blood Urea Nitrogen 19 mg/dL (8-23); C Reactive Protein 243.2 mg/L (0.0-4.9); Carbon Dioxide 26 mmol/L (22-29); Chloride 100 mmol/L (98-107); Globulin 2.3 g/dL (1.3-4.6); Glomerular Filtration Rate 42.9 mL/min (90-130); Glucose 154 mg/dL (65-115); Osmolality Calculated 295 mOsm/kg (285-295); Potassium 4.8 mmol/L (3.5-5.1); Sodium 140 mmol/L (136-145); Total Bilirubin 1.2 mg/dL (0.15-1.2); Troponin(5th) Baseline 158 ng/L (0-15)
[2025-03-04 19:46] LABS: Procalcitonin 1.43 ng/mL (0-0.5)
--- NOTE | 2025-03-04 19:52 | CTR_ITS ---
PROCEDURE INFORMATION: Exam: CT Chest Without Contrast; Diagnostic Exam date and time: 03/04/2025 8:03 PM Age: 70 years old Clinical indication: Other: Sepsis; Prior surgery; Surgery date: 6+ months; Surgery type: Colon for CA, spine surgeries; Current chemo patient for stage iv colon CA TECHNIQUE: Imaging protocol: Diagnostic computed tomography of the chest without contrast. Radiation optimization: All CT scans at this facility use at least one of these dose optimization techniques: automated exposure control; mA and/or kV adjustment per patient size (includes targeted exams where dose is matched to clinical indication); or iterative reconstruction. COMPARISON: CT chest abdpel w/*[id number] 11/20/2024 3:03 PM RADIATION DOSE METRICS: Total DLP (mGy-cm): 679.2 FINDINGS: Tubes, catheters and devices: Right Mediport catheter. Lungs: Unremarkable. No consolidation. No masses. Pleural spaces: Mild nonspecific pleural thickening in the posterior portions of the lungs bilaterally. Heart: Mild to moderate cardiomegaly. Air in the superior portion of the left brachycephalic vein and to lesser extent the right atrium and right ventricle most consistent with incidental air from intravenous fluids. Coronary arteries: Mild calcified coronary artery disease. Lymph nodes: Unremarkable. No enlarged lymph nodes. Vasculature: Unremarkable. No aortic aneurysm. Bones/joints: Levoscoliosis. Soft tissues: Unremarkable. Other findings: Postoperative changes over the thoracic spine with metallic fixation and metallic artifact. PROCEDURE INFORMATION: Exam: CT Abdomen And Pelvis Without Contrast Exam date and time: 03/04/2025 8:03 PM Age: 70 years old Clinical indication: Other: Sepsis; Prior surgery; Surgery date: 6+ months; Surgery type: Colon for CA, spine surgeries; Current chemo patient for stage iv colon CA TECHNIQUE: Imaging protocol: Computed tomography of the abdomen and pelvis without contrast. Radiation optimization: All CT scans at this facility use at least one of these dose optimization techniques: automated exposure control; mA and/or kV adjustment per patient size (includes targeted exams where dose is matched to clinical indication); or iterative reconstruction. COMPARISON: CT abdomen pelvis wo con [id number] 02/09/2025 6:20 PM RADIATION DOSE METRICS: Total DLP (mGy-cm): 1097.9 FINDINGS: Liver: Severe fatty infiltration of the liver. Continued Heterogeneous metastatic disease in the inferior posterior aspect of the right liver which is better visualized on images with contrast. Gallbladder and biliary ducts: Interval appearance of enlarged 6.5 x 5.0 cm greater than or equal to 5.0 cm transverse diameter gallbladder consistent with gallbladder hydrops. No obvious gallbladder wall thickening. Pancreas: Normal. No ductal dilation. Spleen: Normal. No splenomegaly. Adrenal glands: Normal. No mass. Kidneys and ureters: Left renal simple cyst measuring >1.0 cm. Stomach and bowel: Right lower quadrant colostomy with prominent partial colectomy.. Stable rectosigmoid stump. Appendix: No evidence of appendicitis. Intraperitoneal space: Unremarkable. No free air. No significant fluid collection. Vasculature: Calcification of the abdominal aorta and/or iliac arteries consistent with atherosclerotic vessel disease. Lymph nodes: Unremarkable. No enlarged lymph nodes. Urinary bladder: Unremarkable as visualized. Reproductive: Unremarkable as visualized. Bones/joints: Dextroscoliosis. Soft tissues: Unremarkable. Other findings: Postoperative changes over the lumbar spine with metallic fixation and metallic artifact. CT/[place] [id number] IMPRESSION: 1. Mild to moderate cardiomegaly. 2. Air in the superior portion of the left brachycephalic vein and to lesser extent the right atrium and right ventricle most consistent with incidental air from intravenous fluids. 3. Mild nonspecific pleural thickening in the posterior portions of the lungs bilaterally. 4. Right Mediport catheter. IMPRESSION: 1. Severe fatty infiltration of the liver. 2. Right lower quadrant colostomy with prominent partial colectomy.. 3. Stable rectosigmoid stump. 4. Continued heterogeneous metastatic disease in the inferior posterior aspect of the right liver which is better visualized on images with contrast. 5. Interval appearance of enlarged 6.5 x 5.0 cm greater than or equal to 5.0 cm transverse diameter gallbladder consistent with gallbladder hydrops. No obvious gallbladder wall thickening. COMMENTS: Consistent with the [employer]'s Incidental Findings Committee white paper (J Am Dg Radiol 2018): Any incidental renal lesion less than 1 cm or classified as too small to characterize, or any incidental cystic renal lesion characterized as simple-appearing, is likely benign. No follow-up imaging is recommended for these lesions per consensus recommendations based on imaging criteria.
--- NOTE | 2025-03-04 20:15 | PC.NURSE ---
pt transported to ct scan and back to room on panel monitor per myself and adult ministries director with no difficulties noted. pt on panel monitor. provider updated of patients status.
[2025-03-04 20:19] LABS: Influenza A NEGATIVE (Negative); Influenza B NEGATIVE (Negative); Respiratory Syncytial Virus Ce NEGATIVE (Negative); SARS-CoV-2 PCR NEGATIVE (Negative)
[2025-03-04 20:48] LABS: Reflex Lactate Order REFLEX LACTIC ORDERD
--- NOTE | 2025-03-04 21:02 | ECG_ITS ---
[employer] Test Date: 2025-03-04 Pat Name: Charan Voss Department: Room: Gender: Male [employer]ter [employer]: : 1955 Requested By: Daria Finley Order Number: [id number] Hilary MD: MARGAUX STOVALL Measurements Intervals [place] Rate: 99 P: 0 KS: 0 QRS: -11 QRSD: 107 T: 76 QT: 341 QTc: 439 Interpretive Statements ATRIAL FIBRILLATION POSSIBLE ANTERIOR MYOCARDIAL INFARCTION , OF INDETERMINATE AGE [30 ms Q WAVE IN V3/V4, OR R < 0.2 mV IN V4] Compared to ECG 03/04/2025 18:47:47 No significant changes Electronically Signed On 03-06-2025 23:56:31 CDT by MARGAUX STOVALL [id number] [id number]
[2025-03-04 21:07] LABS: Troponin 5 2HR 209.6 ng/L (0-15); Troponin 5 2HR Delta 51.6 ABS# (0-10)
[2025-03-04 22:02] LABS: Lactic Acid level (Lactate) 2.3 mmol/L (0.5-2.2)
[2025-03-04 22:36] LABS: Bilirubin Urine 1+ (Negative); Blood Urine Negative (Negative); Glucose Urine UA Negative (Normal); Ketones Urine Negative (Negative); Leukocyte Esterase Urine Negative (Negative); Nitrate Urine Negative (Negative); Protein Urine 1+ (Negative); Specific Gravity, Urine 1.023 (1.005-1.030); Urine Appearance Cloudy (CLEAR); Urine Color Dark Yellow (Yellow)
[2025-03-04 22:41] LABS: Bacteria Urine None Seen /hpf; Hyaline Casts Urine 41.35 /lpf; RBC Urine 0-2 /hpf (0-2); Squamous Epithelial Cell Urine 0-5 /hpf (0-5); WBC Urine 0-5 /hpf (0-5)
[2025-03-04] MEDS: norepinephrine 4 MG/250 ML BAG 7.5 MG IV (23:09)
[2025-03-04 23:39] LABS: UA Slide Review UA Slide Review Perf
[2025-03-05] VITALS (61 sets, daily range): BP systolic 97–169; BP diastolic 53–100; PULSE 70–103; RESP 18–30; TEMP 36.6–37.3; O2SAT 94–100
--- NOTE | 2025-03-05 00:28 | PM.HP ---
Providers/Chief Complaint Admitting Physician: Anastacia Grijalva MD--patient seen before 12 midnight Primary Care Provider: Al Álvarez MD Chief Complaint: weakness History of Present Illness Charan Voss is a 70 year old male with a medical history significant for colon cancer with metastasis to the liver. Patient has a stage IV colon cancer and actively receiving chemo. Patient had had chemo adjusted last week and had become increasingly weak. He had to come to the emergency room to be evaluated because of profound weakness temperature of 102.3 ?F hypotension. And hypoxemia. Patient upon getting to the emergency room he was very weak with a systolic blood pressure of 78/40 heart rate tachycardic in the 140s patient was pancultured and was given aggressive fluid of 3 L. Post 3 L of IV normal saline infusion patient was still with systolic blood pressure in the 70s. At that point emergency room attending had called me for evaluation of this patient for admission. I came at the bedside in the emergency room evaluated patient he had his eyes closed he will not respond to me almost obtunded. Levophed was started and I added another fourth liter of normal saline at this time running at a gentle rate of 100 mL/h patient received meropenem 500 mg IV one-time dose in the emergency room and also with Zyvox 600 mg IV x 1 in the emergency room. Lactate was 3.5 on presentation a repeat lactate came down to 2.5. Hemosol's been noted that patient at presentation had a room air hypoxemia in the 80s patient was placed on 3 L of oxygen and with a saturation at 98%. Patient remarkably improved after transfer to ICU. Receiving patient in the ICU the staff related that patient was able now to talk and was able to answer some questions. Patient had gone from obtundation to now responding to care and therapy. Patient indeed had been now noted to have severe sepsis requiring pressors at this time but now having fairly good blood pressure systolic above 100. Troponin elevated because of an acute renal failure most likely. Patient never had any chest pains. Review of Systems Narrative: Generally in the ED patient was obtunded, eyes closed, was not talking even when spoken to. System review upon 10 organ system review with noted to be with multiple organ dysfunction due to sepsis Medications/Allergies Home Medications ?Medication ?Instructions ?Recorded ?Confirmed ?Last Taken ?Type allopurinol 300 mg tablet 300 mg PO DAILY 10/15/19 02/09/25 02/09/25 History resveratrol 250 mg capsule 250 mg PO DAILY 11/15/20 02/09/25 02/08/25 History saw palmetto 500 mg capsule 500 mg PO DAILY 11/15/20 02/09/25 02/08/25 History acetaminophen 500 mg tablet 1,000 mg PO Q6H PRN Pain 10/09/22 02/09/25 01/09/24 History trazodone 150 mg tablet 300 mg PO BEDTIME 10/09/22 02/09/25 02/08/25 20:00 History gabapentin 300 mg capsule 300 mg PO TID 02/04/23 02/09/25 12/04/24 History lovastatin 40 mg tablet 40 mg PO BEDTIME 02/05/23 02/09/25 12/03/24 History albuterol sulfate 90 mcg/actuation 2 puff inhalation Q4H PRN 10/08/24 02/09/25 Unknown History aerosol inhaler Shortness Of Breath digoxin 125 mcg (0.125 mg) tablet 0.125 mg PO DAILY 10/08/24 02/09/25 02/09/25 History epinephrine 0.3 mg/0.3 mL See Rx Instructions .Route .COMPLEX 10/08/24 02/09/25 Unknown History injection, auto-injector oxycodone 10 mg tablet 10 mg PO Q6H PRN Pain 10/08/24 02/09/25 12/04/24 History vancomycin 125 mg capsule 125 mg PO DAILY 12/04/24 02/09/25 02/08/25 History amiodarone 200 mg tablet (Pacerone) 200 mg PO DAILY #90 tabs 01/14/25 02/09/25 02/09/25 Rx clobetasol 0.05 % topical cream 1 applic topical BID PRN hands 02/09/25 02/09/25 Unknown History prochlorperazine maleate 10 mg 10 mg PO Q6H PRN Nausea And 02/09/25 02/09/25 Unknown History tablet Vomiting testosterone 3 pump topical DAILY 02/09/25 02/09/25 02/08/25 History furosemide 20 mg tablet 20 mg PO DAILY PRN swelling #2 tabs 02/12/25 02/09/25 02/08/25 Rx midodrine 5 mg tablet 5 mg PO TID #90 tabs 02/12/25 Unknown Rx pantoprazole 40 mg tablet,delayed 40 mg PO QAM #60 tabs 02/12/25 Unknown Rx release (Protonix) sucralfate 1 gram tablet (Carafate) 1 g PO BID 4 weeks #56 tabs 02/12/25 Unknown Rx Allergies Allergy/AdvReac Type Severity Reaction Status Date / Time apixaban Allergy Unknown Headaches Verified 03/04/25 21:49 blackberry Allergy Unknown ADR-Diarrhe Verified 11/25/24 14:48 a blueberry Allergy Unknown ADR-Diarrhe Verified 11/25/24 14:48 a egg Allergy Unknown DIARRHEA, Verified 03/04/25 21:49 VOMITING AND STOMACH CRAMPING raspberry Allergy Unknown ADR-Diarrhe Verified 11/25/24 14:48 a strawberry Allergy Unknown ADR-Diarrhe Verified 11/25/24 14:48 a tomato Allergy Unknown ADR-Gastrointestinal Verified 11/25/24 14:48 Upset oats Allergy DIARRHEA Verified 11/25/24 14:48 Opioids - Morphine Analogues Allergy ADR-Chest Verified 11/25/24 14:48 Pain caffeine AdvReac Unknown PALPITATION Verified 11/25/24 14:48 S apple AdvReac DIARRHEA, Verified 11/25/24 14:48 VOMITING AND CRAMPING meperidine (From Demerol) AdvReac EXCESSIVE Verified 11/25/24 14:48 SEDATION morphine AdvReac HALLUCINATI Verified 11/25/24 14:48 ONS berries Allergy Unknown Unknown Uncoded 02/17/25 13:52 FRYE Allergy Unknown Diarrhea Uncoded 02/17/25 13:52 raw tomatoes Allergy Unknown ADR-Gastrointestinal Uncoded 02/17/25 13:52 Upset PFSH Acute PFSH: Medical History Orthostatic hypotension Complication of ostomy Ventilator dependent Intra-abdominal abscess post-procedure Metastatic colon cancer to liver Malignant neoplasm of splenic flexure Renal hematoma Colostomy complication C. 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 (~08/2022) hospitalized in [place] Chronic sinusitis of both maxillary sinuses Gout Asperger syndrome mild Dyslipidemia Degenerative joint disease (DJD) of lumbar spine Obstructive sleep apnea Chronic low back pain Substernal goiter Asthma Restrictive lung disease due to kyphoscoliosis Suspected exposure to asbestos Allergies Right renal stone Testosterone deficiency On TRT for 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 Erectile dysfunction Opioid contract exists previous Chronic pain syndrome Surgical History Hx of bilateral cataract extraction History of colostomy (11/01/22) Colostomy revision for control of bleeding History of exploratory laparotomy (10/15/22) Exploratory laparotomy with partial colon resection and with end colostomy formation Status post left hemicolectomy (10/08/22) laparoscopic converted to open, with splenic flexure takedown and right colon mobilization, primary anastamosis History of back surgery History of shoulder surgery History of appendectomy H/O arthroscopic knee surgery H/O ankle fusion H/O wrist surgery S/P ureteral stent placement Family History Grandfather CAD (coronary artery disease) Family/Other Cancer Grandmother Dementia Stroke Mother Lung disease Other Hypertension Denies family history of Rheumatoid arthritis Diabetes Lupus Clotting disorder Hyperlipidemia Chronic kidney disease (CKD) Suicide Anesthesia complication Bleeding disorder Social History Smoking and tobacco/nicotine status: former use of tobacco/nicotine Quit status (tobacco/nicotine): has quit using Year quit tobacco: 1976 [id number] Second hand smoke exposure: Yes Alcohol intake: never Substance/Drug Use: never Lives independently: Yes Current occupational status: retired Pets and animals: Yes Do you think of yourself as: Straight/Heterosexual Current gender identity: Male Vitals/I&O/Wt Last Vital Signs Temp 98.6 F 03/04/25 22:30 Pulse 93 03/04/25 23:25 Resp 20 H 03/04/25 23:25 BP 101/62 03/04/25 23:25 Pulse Ox 100 03/04/25 23:25 O2 Del Method Nasal Cannula 03/04/25 23:25 O2 Flow Rate 3 03/04/25 23:25 03/04/25 03/04/25 03/05/25 14:59 22:59 06:59 Intake Total 3400 / 3400 Balance 3400 / 3400 Physical Exam Narrative: Generally patient is improving from obtundation at presentation to being awake post aggressive treatment for sepsis HEENT normocephalic atraumatic neck neck is supple cardiovascular heart rate is regular lungs are pretty much clear abdomen soft nontender nondistended patient has a right lower quadrant colostomy. unremarkable extremities intact no edema has good pulses neurology no focality Urinary Catheter Management: Orellana Latex: Cath Placed During This Visit: yes Urinary Catheter Date of Insertion: 03/04/25 Urinary Catheter Time of Insertion: 22:31 Data 03/04/25 18:53 03/04/25 18:53 Micro: Microbiology 03/04/25 19:26 Blood Culture - Preliminary Blood SPECIMEN COLLECTED 03/04/25 18:53 Blood Culture - Preliminary Blood SPECIMEN COLLECTED A&P Assessment and plan (1) Sepsis: Patient has severe sepsis with and sepTIC shock - Continue gentle hydration and also [place] to keep good blood pressure and to optimize kidney function - We must avoid any further hypotension - Patient was with hypotention for an extended period of time from home to the emergency room, compromising renal function in the setting of sepsis Continue antibiotics as ordered Follow blood cultures and optimize accordingly Patient most likely does have gram-negative sepsis being immunosuppressed and receiving chemotherapy Continue meropenem at this time and Zyvox once the microorganism is identified, de-escalate antibiotics (2) Hypotension: Admit to ICU due to severe sepsis with multi organ dysfunction -Continue to treat sepsis - At this point gentle hydration and continue with Levophed - Maintaining good blood pressure for adequate renal perfusion - Must continue to treat and optimize - Blood pressure is improving well above 100 systolic from 70s (3) Elevated troponin: Patient troponin elevation is multifactorial -- Reasons acute renal failure secondary to volume contraction and sepsis, tachycardia induced troponin elevation, continue supportive care with IV hydration, pressor - Moderate interval increase in troponin from 2 digits to 3 digits in the 300s - Will start patient on a heparin drip protocol - Will obtain cardiology consultation (4) Atrial fibrillation with rapid ventricular response: Continue patient's heparin drip per order Tachycardia arrhythmia is resolving from a 140 to 90s to 100 (5) Acute renal failure: Patient undoubtably will have an improvement in renal function with adequate hydration and stabilization of good blood pressure Renal failure is multifactorial mostly due to severe sepsis dehydration Follow lab studies and optimize accordingly monitoring renal function (6) Metastatic colon cancer to liver: Patient is being followed by oncologist and actively getting chemotherapy Plan GI and DVT prophylaxis in place PDMP PDMP Reviewed: Last Reviewed 03/05/25 01:23 by Anastacia Grijalva MD Attestations Medical Necessity Statement*: Patient is with severe sepsis with multi organ dysfunction significant for septic shock requiring pressor and ICU admission. Patient undoubtably meets inpatient criteria for further optimization of care for at least 2 midnights Coding Level of Care Code 23677 Diagnoses Sepsis A41.9 Hypotension I95.9 Elevated troponin R79.89 Atrial fibrillation with rapid ventricular response I48.91 Acute renal failure N17.9 Metastatic colon cancer to liver C18.9; C78.7 Time Spent (min) 70
[2025-03-05 00:51] LABS: Troponin 5 6HR 363.3 ng/L (0-15); Troponin 5 6HR Delta 205.3 ng/L (0-12)
--- NOTE | 2025-03-05 00:57 | ECG_ITS ---
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
[2025-03-05] MEDS: sodium chloride 0.9% 1,000 ML 100 ML IV ×2 (01:01→12:33)
[2025-03-05] MEDS: heparin 5,000 unit/mL INJ 1 mL IVP ×2 (01:46→09:48)
[2025-03-05] MEDS: heparin drip 25,000 UNIT/500 ML PREMIX 16 UNIT IV (01:47)
[2025-03-05] MEDS: meropenem 500 mg SDV IVP ×3 (04:05→20:29)
[2025-03-05] MEDS: fixodent 39 gm Tube 1 APPLIC DENTAL (04:27)
--- NOTE | 2025-03-05 07:45 | US_ITS ---
WS: [id number] RIGHT UPPER QUADRANT ULTRASOUND HISTORY: ruq pain COMPARISON: 02/11/2024 Liver: 20.4 cm in length. Enlarged coarse liver. Mild hepatic steatosis. Small amount of adjacent ascites. Reidentified is the mixed echogenicity mass in the RIGHT lobe of the liver which has been previously described. Patient has known metastatic liver disease. The largest lesion measures 4.0 x 4.3 x 6.0 cm. There are additional scattered hypoechoic echoic masses within the liver. Portal Vein: Normal hepatopetal flow with monophasic waveform. Gallbladder: Mildly hydropic gallbladder. Small amount of fluid adjacent to the gallbladder and a small amount of gallbladder sludge. CBD: 0.4 cm Pancreas: Limited visualization. Right kidney: 11.7 cm in length. Normal size and echogenicity. No hydronephrosis or mass. Aorta and IVC: Unremarkable abdominal aorta and IVC. Small amount of ascites adjacent to the liver. US/US gall bladder [id number] IMPRESSION: 1. Very mild gallbladder hydrops. Small amount of sludge but no stones. No wal l thickening. 2. There is a small amount of fluid adjacent to the gallbladder which is proba mike ascites. There is a small amount of ascites identified in the RIGHT upper q uadrant. 3. Patient has known metastatic liver disease. Largest lesion in the RIGHT lob e measures 4.0 x 4.3 x 6.0 cm.
--- NOTE | 2025-03-05 07:48 | USCV_ITS ---
Charan Voss Age: 70 Gender: M : 1955 Exam Date: 03/05/2025 10:20 Ordering Phys: Blanco Carter MD Technologist: Mani Reynolds Exam Location: [facility] [place] Indication: nstemi BP: 119 / 55 HR: 86 Rhythm: Sinus Technical Quality: Poor MEASUREMENTS (Male / Female) Normal Values 2D ECHO LV Diastolic Diameter PLAX 3.8 cm 4.2 - 5.9 / 3.9 - 5.3 cm IVS Diastolic Thickness 1.4 cm 0.6 - 1.0 / 0.6 - 0.9 cm IVS Systolic Thickness 1.6 cm LVPW Diastolic Thickness 1.5 cm 0.6 - 1.0 / 0.6 - 0.9 cm LVPW Systolic Thickness 1.6 cm LVOT Diameter 2.2 cm LV Ejection Fraction 2D Teich 68.4 % LV Ejection Fraction MOD 4C 72.9 % LV Ejection Fraction MOD 2C 60.6 % LV Ejection Fraction 2C AL 61.5 % LA Diameter 3.0 cm RA Systolic Volume 4C AL 102.1 ml RA Systolic Volume 4C MOD 104.2 ml LA Sys Volume AL 111.6 cm cubed LA Sys Volume Index AL 41.9 cm cubed/m squared Aorta at Sinotubular Diameter 2.3 cm IVC Diameter 2.1 cm M-MODE LA Ao Ratio MM 1.4 AV Cusp Separation MM 2.1 cm DOPPLER AV Peak Velocity 190.0 cm/s LVOT Peak Velocity 153.0 cm/s AV Area Cont Eq vti 3.0 cm squared AV Area Cont Eq pk 3.1 cm squared MV Peak Velocity 147.0 cm/s MV Area PHT 5.7 cm squared Mitral E to A Ratio 3.0 TR Peak Velocity 359.0 cm/s TR Peak Gradient 51.6 mmHg TR Mean Velocity 286.0 cm/s TR Mean Gradient 34.8 mmHg TR Velocity Time Integral 68.7 cm PV Peak Velocity 137.0 cm/s RV Ejection Time 0.3 s FINDINGS Left Ventricle Normal left ventricular size, systolic function and wall thickness, with no regional wall motion abnormalities. Left ventricular ejection fraction is estimated at 60 %. Grade III/IV diastolic dysfunction (restrictive filling pattern), severely elevated filling pressures. Right Ventricle The right ventricle is normal in size and function. Right Atrium The right atrium is normal in size. Left Atrium Mildly increased left atrial size. Mitral Valve Moderately thickened mitral valve. Moderate mitral annular calcification. No mitral valve stenosis. Mild mitral valve regurgitation. Aortic Valve Structurally normal aortic valve without significant sclerosis or stenosis. There is no aortic regurgitation. Tricuspid Valve Structurally normal tricuspid valve without significant stenosis or regurgitation. Pulmonary artery systolic pressure is normal. Pulmonic Valve Structurally normal pulmonic valve without significant stenosis. There is no pulmonic regurgitation. Pericardium Normal pericardium without effusion. Aorta Normal ascending aorta dimension. IVC Dilated IVC with decreased respiratory variation. CONCLUSIONS Normal left ventricular size, systolic function and wall thickness, with no regional wall motion abnormalities. Left ventricular ejection fraction is estimated at 60 %. Grade III/IV diastolic dysfunction (restrictive filling pattern), severely elevated filling pressures. There is no pericardial effusion. No significant valve abnormalities. Right atrial pressure is around 20 mm of mercury. Uche Singh MD (Electronically Signed) Final Date: 05 March 2025 22:42 S
[2025-03-05] MEDS: linezolid premix 600 MG/300 ML PREMIX 300 MG IV ×2 (07:57→20:30)
[2025-03-05 08:26] LABS: Partial Thromboplastin Time 48.1 SECONDS (23.9-36.7)
[2025-03-05 08:29] LABS: Lactic Sepsis W/Reflex 1.4 mmol/L (0.5-2.2)
[2025-03-05 08:38] LABS: Estmated Average Glucose 111; Hemoglobin A1C 5.5 % (4.0-6.0)
[2025-03-05 08:40] LABS: Chol HDL Ratio 2.97 mg/dL (1.0-5.00); Cholesterol 95 mg/dL (0-200); HDL Cholesterol 32 mg/dL (60-100); LDL Cholesterol Calculated 37 mg/dL (50-129); LDL HDL Ratio 1.16 RATIO (0.00-3.22); Thyroid Stimulating Hormone 1.27 uIU/mL (0.27-4.20); Triglycerides 128 mg/dL (0-150)
[2025-03-05 08:51] LABS: Troponin T (5th) Once 470 ng/L (0-15)
[2025-03-05] MEDS: pantoprazole 40 mg SDV IVP (09:50)
--- NOTE | 2025-03-05 14:15 | PC.SOCIAL ---
IMM Updated Updated pt on IMM. No questions voiced. Provided pt a copy. Initialed, dated, & timed a copy & placed in chart.
--- NOTE | 2025-03-05 15:18 | P.PN_ITS ---
Subjective 2 Subjective: Patient was seen this morning, currently alert oriented x 3, following all commands, denies any nausea he does feel feel dizzy has diffuse muscular skeletal aches and pains, does report diffuse abdominal pain, he denies any active chest pain, denies any sore throat, no cough, no new rashes Vitals/I&O/Wt Last Vital Signs Temp 97.8 F 03/05/25 10:00 Pulse 91 03/05/25 14:00 Resp 23 H 03/05/25 12:00 BP 114/62 03/05/25 12:00 Pulse Ox 97 03/05/25 12:00 O2 Del Method Nasal Cannula 03/05/25 12:00 O2 Flow Rate 3 03/05/25 12:00 03/05/25 03/05/25 03/05/25 06:59 14:59 22:59 Intake Total 34.5 / 3434.5 1098.667 / 1098.667 Output Total 400 / 400 Balance -365.5 / 3034.5 1098.667 / 1098.667 Weight last 48 hrs Weight 129.5 kg Weight 58.74 kg Weight 58.74 kg Physical Exam 2 Const: COMMON NORMALS: no acute distress and patient oriented x3 Resp: COMMON NORMALS: normal respiratory effort, No retractions, No use of accessory muscles and clear to auscultation bilaterally AUSCULTATION: clear to auscultation bilaterally Cardio: COMMON NORMALS: regular rate, regular rhythm, S1 normal heart sound present and S2 normal heart sound present RATE: regular rate RHYTHM: r egular rhythm HEART SOUNDS: S1 normal heart sound present and S2 normal heart sound present GI: COMMON NORMALS: Normal to inspection, nondistended, normoactive bowel sounds present INSPECTION: Yes normal to inspection OTHER: Does have diffuse tenderness Extremity: COMMON NORMALS: no pedal edema Neuro: COMMON NORMALS: patient oriented x3 Psych: COMMON NORMALS: mental status grossly normal Skin: NARRATIVE SKIN EXAM: Sepsis examination, 03/05/2025, at 9 AM, DP PT pulses palpable, cap refill less than 5 seconds, normal Urinary Catheter Management: Orellana Latex: Cath Placed During This Visit: yes Urinary Catheter Date of Insertion: 03/04/25 Urinary Catheter Time of Insertion: 22:31 Data 03/04/25 18:53 03/04/25 18:53 Micro: Microbiology 03/04/25 19:26 Blood Culture - Preliminary Blood SPECIMEN COLLECTED 03/04/25 18:53 Blood Culture - Preliminary Blood SPECIMEN COLLECTED A&P Assessment and plan (1) Sepsis: (2) Hypotension: (3) Elevated troponin: (4) Atrial fibrillation with rapid ventricular response: (5) Acute renal failure: (6) Metastatic colon cancer to liver: Patient is being followed by oncologist and actively getting chemotherapy (7) Hydrops of gallbladder: (8) Septic shock: Plan Septic shock - Source is unclear -History of immunocompromise state, on active chemotherapy - CT of the chest does show mild nonspecific pleural thickening in the posterior portions of lung bilaterally - Does have a history of Klebsiella pneumonia - UA within normal limits - Does have hydropic gallbladder on CT imaging, no evidence of gallbladder wall thickening, this has been present on prior CT scans - Right Mediport catheter no surrounding erythema - Respiratory viral panel within normal limits Plan - Follow-up blood cultures - Follow urine cultures - Monitor for fevers - Continue Zyvox - Continue meropenem - Monitor clinical status closely - Full code - Heparin drip for DVT prophylaxis Hydrops gallbladder - Clear liquids - Gallbladder ultrasound Acute kidney injury ? Secondary to sepsis ? IV fluids NSTEMI - No chest pain complaints - Serial EKGs, serial troponins, telemetry monitoring - Cardiac echo - Aspirin, statin - Heparin drip A-fib, start amiodarone drip Metastatic colon cancer to the liver Full code, Heparin drip PDMP PDMP Reviewed: Not Reviewed Attestations 2 Medical Necessity Statement*: Patient requires hospitalization for septic shock, immunocompromise state on active chemotherapy, TALON, sepsis Diagnoses Sepsis A41.9 Hypotension I95.9 Elevated troponin R79.89 Atrial fibrillation with rapid ventricular response I48.91 Acute renal failure N17.9 Metastatic colon cancer to liver C18.9; C78.7 Hydrops of gallbladder K82.1 Septic shock A41.9; R65.21
[2025-03-05 15:57] LABS: Erythrocyte Sedimentation Rate 65 mm/hr (0-10)
[2025-03-05 16:05] LABS: Gamma Glutamyl Transferase 47 U/L (8-61); Lipase 8 U/L (13-60)
[2025-03-05 16:07] LABS: Partial Thromboplastin Time 56.7 SECONDS (23.9-36.7)
[2025-03-05] MEDS: oxybutynin chloride XL 5 MG TABLET PO (16:57)
[2025-03-05] MEDS: aspirin 81 mg EC Tablet PO (16:57)
[2025-03-05] MEDS: sucralfate 1 gm Tablet PO (16:58)
[2025-03-05] MEDS: oxyCODONE 5 mg IR Tab/Cap 10 MG PO (16:59)
--- NOTE | 2025-03-05 20:27 | P.CONIM_ITS ---
<Statement entered by Uche Singh MD - 03/05/25 22:32> Patient was evaluated and cared for in conjunction with an advanced practice practitioner. I personally examined the patient and reviewed the chart and all pertinent data including imaging, telemetry, and laboratory results. I discussed the patient in detail with the advanced practice practitioner. Please see their note for complete H&P testing result and agreed upon plan of care for the patient. Providers/Reason For Consult 2 Consulting Physician/Specialty*: Dr. Singh Reason for Consult*: Elevated troponin Requesting Physician: Dr. Carter Attending Physician: Blanco Carter MD Primary Care Provider: Al Álvarez MD History of Present Illness History of Present Illness Charan Voss is a 70 year old male with a hx of metastatic colon cancer to the liver, afib, hypertension, hyperlipidemia, who came into the ER with fever, weakness, and high heart rate. He denies chest pain or shortness of breath. He gets chemo biweekly. Patient required pressors, given gentle hydration, and placed on abx. Troponin was checked and was elevated at [phone]. He denies any hx of CAD. He developed afib rvr and was given amio bolus and is currently on a drip. 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 Currently pressures are soft but patient is off of levo. Heart rates are controlled. Review of Systems 2 Narrative: Consitutional: Reports generalized weakness Card: Denies chest pain, palpitations, irregular heart rhythm, edema, syncope, shortness of breath, orthopnea Resp: Denies shortness of breath, denies hemoptysis, denies cough GI: denies abdominal pain, denies nausea or voimting, denies blood in stool : denies blood in urine, denies dysuria Musc: Denies extremity pain, denies limited range of motion or recent injury Skin: Denies rash, lesions, or wounds, denies changes to skin color Neuro: Denies nubmness in extremities, h/a, s/s of stroke Medications/Allergies Home Medications ?Medication ?Instructions ?Recorded ?Confirmed ?Last Taken ?Type resveratrol 250 mg capsule 250 mg PO DAILY 11/15/2003/04/25 History saw palmetto 500 mg capsule 500 mg PO DAILY 11/15/20 0 03/05/25 03/04/25 History acetaminophen 500 mg tablet 1,000 mg PO Q6H PRN Pain 0 10/09/22 03/05/25 01/09/24 History trazodone 150 mg tablet 300 mg PO BEDTIME 10/09/22 0 03/05/25 02/08/25 20:00 History gabapentin 300 mg capsule 300 mg PO TID 02/04/2303/0512/04/24 History albuterol sulfate 90 mcg/actuation 2 puff inhalation Q 4H PRN 10/08/24 03/05/25 Unknown History aerosol inhaler Shortness Of Breath digoxin 125 mcg (0.125 mg) tablet 0.125 mg PO DAILY 03/05/25 03/04/25 History epinephrine 0.3 mg/0.3 mL See Rx Instructions .Route . COMPLEX 10/08/24 03/05/25 Unknown History injection, auto-injector oxycodone 10 mg tablet 10 mg PO Q6H PRN Pain 03/05/25 12/04/24 History vancomycin 125 mg capsule 125 mg PO DAILY 12/04/2403/2402/08/25 History amiodarone 200 mg tablet (Pacerone) 200 mg PO DAILY #9 0 tabs 01/14/25 03/05/25 03/04/25 Rx clobetasol 0.05 % topical cream 1 applic topical BID P RN hands 02/09/25 03/05/25 Unknown History prochlorperazine maleate 10 mg 10 mg PO Q6H PRN Nausea And 02/09/25 03/05/25 Unknown History tablet Vomiting testosterone 3 pump topical DAILY 5 03/05/25 03/04/25 History furosemide 20 mg tablet 20 mg PO DAILY PRN swelling #2 tabs 02/12/25 03/05/25 03/04/25 Rx midodrine 5 mg tablet 5 mg PO TID #90 tabs 5 03/05/25 Unknown Rx pantoprazole 40 mg tablet,delayed 40 mg PO QAM #60 tab s 02/12/25 03/05/25 03/04/25 Rx release (Protonix) sucralfate 1 gram tablet (Carafate) 1 g PO BID 4 weeks #56 tabs 02/12/25 03/05/25 03/04/25 Rx Allergies Allergy/AdvReac Type Severity Reaction Status Date / Time apixaban Allergy Unknown Headaches Verified 03/04/25 21:49 blackberry Allergy Unknown ADR-Diarrhe Verified 11/25/24 14:48 a blueberry Allergy Unknown ADR-Diarrhe Verified 11/25/24 14:48 a egg Allergy Unknown DIARRHEA, Verified 03/04/25 21:49 VOMITING AND STOMACH CRAMPING raspberry Allergy Unknown ADR-Diarrhe Verified 11/25/24 14:48 a strawberry Allergy Unknown ADR-Diarrhe Verified 11/25/24 14:48 a tomato Allergy Unknown ADR-Gastrointestinal Verified 11/25/24 14:48 Upset oats Allergy DIARRHEA Verified 11/25/24 14:48 Opioids - Morphine Analogues Allergy ADR-Chest Verified 11/25/24 14:48 Pain caffeine AdvReac Unknown PALPITATION Verified 11/25/24 14:48 S apple AdvReac DIARRHEA, Verified 11/25/24 14:48 VOMITING AND CRAMPING meperidine (From Demerol) AdvReac EXCESSIVE Verified 11/25/24 14:48 SEDATION morphine AdvReac HALLUCINATI Verified 11/25/24 14:48 ONS berries Allergy Unknown Unknown Uncoded 02/17/25 13:52 FRYE Allergy Unknown Diarrhea Uncoded 02/17/25 13:52 raw tomatoes Allergy Unknown ADR-Gastrointestinal Uncoded 02/17/25 13:52 Upset Current Medications Generic Name Dose Route Start Last Admin Trade Name Freq PRN Reason Stop Dose Admin Aspirin 81 mg 03/05/25 15:35 03/05/25 16:57 Aspirin 81 Mg Ec Tablet PO 81 mg DAILY SOFIA Administration Denture Adhesive 1 applic 03/05/25 04:13 03/05/25 04:27 Fixodent 39 Gm Tube DENTAL 1 applic PRN PRN Administration denture adhesive Heparin Sodium (Porcine) 0 unit 03/05/25 01:03 03/05/25 09:48 Heparin 5,000 Unit/Ml Inj 1 Ml IVP 2,600 unit PRN PRN Administration Heparin Weight Based Protocol -Subsequent Bolus Protocol Norepinephrine Bitartrate 4 mg in 250 mls @ 0 mls/hr 03/04/25 21:30 03/05/25 03:45 Levophed IV 0 mcg/min .Q0M SOFIA 0 mls/hr Protocol Titration Per Protocol Linezolid 600 mg in 300 mls @ 300 mls/hr 03/05/25 07:30 03/05/25 16:15 Zyvox Premix IV Infused Q12H SOFIA Infusion Protocol Sodium Chloride 1,000 mls @ 50 mls/hr 03/05/25 00:15 03/05/25 12:33 Sodium Chloride 0.9% IV 100 mls/hr .Q20H SOFIA Administration Heparin Sodium/Sodium Chloride 25,000 unit in 500 mls @ 0 mls/hr 03/05/25 09:45 03/05/25 09:57 Heparin Drip IV Not Given CONT SOFIA Protocol Per Protocol Amiodarone HCl/Dextrose 360 mg in 200 mls @ 0 mls/hr 03/05/25 10:45 03/05/25 17:22 Nexterone IV 1 mg/min .Q0M SOFIA 33.33 mls/hr Protocol Administration Per Protocol Meropenem 500 mg 03/05/25 04:00 03/05/25 12:33 Meropenem 500 Mg Sdv IVP 500 mg Q8H SOFIA Administration Protocol Oxybutynin Chloride 5 mg 03/05/25 18:00 03/05/25 16:57 Oxybutynin Chloride Xl 5 Mg Tablet PO 5 mg DAILY SOFIA Administration Oxycodone HCl 10 mg 03/05/25 15:20 03/05/25 16:59 Oxycodone 5 Mg Ir Tab/Cap PO 10 mg Q6H PRN Administration Pain Pantoprazole Sodium 40 mg 03/05/25 07:45 03/05/25 09:50 Pantoprazole 40 Mg Sdv IVP 40 mg Q24H SOFIA Administration Sucralfate 1 gm 03/05/25 18:00 03/05/25 16:58 Sucralfate 1 Gm Tablet PO 1 gm BID SOFIA Administration PFSH Acute 2 PFSH: Medical History Orthostatic hypotension Complication of ostomy Ventilator dependent Intra-abdominal abscess post-procedure Metastatic colon cancer to liver Malignant neoplasm of splenic flexure Renal hematoma Colostomy complication C. 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 (~08/2022) hospitalized in [place] Chronic sinusitis of both maxillary sinuses Gout Asperger syndrome mild Dyslipidemia Degenerative joint disease (DJD) of lumbar spine Obstructive sleep apnea Chronic low back pain Substernal goiter Asthma Restrictive lung disease due to kyphoscoliosis Suspected exposure to asbestos Allergies Right renal stone Testosterone deficiency On TRT for 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 Erectile dysfunction Opioid contract exists previous Chronic pain syndrome Surgical History Hx of bilateral cataract extraction History of colostomy (11/01/22) Colostomy revision for control of bleeding History of exploratory laparotomy (10/15/22) Exploratory laparotomy with partial colon resection and with end colostomy formation Status post left hemicolectomy (10/08/22) laparoscopic converted to open, with splenic flexure takedown and right colon mobilization, primary anastamosis History of back surgery History of shoulder surgery History of appendectomy H/O arthroscopic knee surgery H/O ankle fusion H/O wrist surgery S/P ureteral stent placement Family History Grandfather CAD (coronary artery disease) Family/Other Cancer Grandmother Dementia Stroke Mother Lung disease Other Hypertension Denies family history of Rheumatoid arthritis Diabetes Lupus Clotting disorder Hyperlipidemia Chronic kidney disease (CKD) Suicide Anesthesia complication Bleeding disorder Social History Smoking and tobacco/nicotine status: former use of tobacco/nicotine Quit status (tobacco/nicotine): has quit using Year quit tobacco: 1975 [id number] Second hand smoke exposure: Yes Alcohol intake: never Substance/Drug Use: never Lives independently: Yes Current occupational status: retired Pets and animals: Yes Do you think of yourself as: Straight/Heterosexual Current gender identity: Male Vitals/I&O/Wt Last Vital Signs Temp 98.1 F 03/05/25 14:00 Pulse 88 03/05/25 16:00 Resp 27 H 03/05/25 16:59 BP 104/61 03/05/25 16:00 Pulse Ox 98 03/05/25 16:59 O2 Del Method Nasal Cannula 03/05/25 16:00 O2 Flow Rate 3 03/05/25 16:00 03/05/25 03/05/25 03/05/25 06:59 14:59 22:59 Intake Total 34.5 / 3434.5 1098.667 / 1098.667 658.333 / 1757.000 Output Total 400 / 400 950 / 950 Balance -365.5 / 3034.5 1098.667 / 1098.667 -291.667 / 807.000 Weight last 48 hrs Weight 285 lb 7.978 oz Weight 129 lb 8 oz Weight 129 lb 8 oz Physical Exam 2 Narrative: General: No apparent distress Muskuloskeletal: Full ROM Respiratory: Normal respiratory effort, clear to auscultation bilaterally throughout all lung toscano, no use of accessory muscles Cardio: No JVD, irregularly irregular rate and rhythm, S1 S2 normal, no murmurs, peripheral pulses 2+ radial palpated bilaterally Extremities: Full ROM, normal, normal capillary refill, no cyanosis or edema Neuro: Alert and oriented x4, no focal motor deficits Psych: Affect normal Skin: No rashes or lesions noted, no wounds Urinary Catheter Management: Orellana Latex: Cath Placed During This Visit: yes Urinary Catheter Date of Insertion: 03/04/25 Urinary Catheter Time of Insertion: 22:31 Data 03/04/25 18:53 03/04/25 18:53 Micro: Microbiology 03/04/25 19:26 Blood Culture - Preliminary Blood NEGATIVE TO DATE 03/04/25 18:53 Blood Culture - Preliminary Blood NEGATIVE TO DATE A&P Assessment and plan (1) Afib: (2) Elevated troponin: (3) Atrial fibrillation with rapid ventricular response: Plan Patient has NSTEMI possibly due to multiple factors including demand ischemia from sepsis, TALON with elevated creatinine. At this time, he appears well compensated. He denies any chest pain or shortness of breath. Will continue to monitor and treat medically. Monitor for s/s of chest pain or shortness of breath. Continue amiodarone drip for afib RVR. Thank you, Dr. Carter, for allowing us to care for this very pleasant 70 year old gentleman. PDMP PDMP Reviewed: Not Reviewed Consult Attestations 2 Medical Necessity Statement: Deferred to primary. Coding Level of Care Code Acute Code for Chg Fwd Diagnoses Longstanding persistent atrial fibrillation I48.11 Atrial fibrillation type: longstanding persistent Elevated troponin R79.89 Atrial fibrillation with rapid ventricular response I48.91
[2025-03-05] MEDS: trazodone 150 mg Tablet 300 MG PO (20:30)
[2025-03-05] MEDS: gabapentin 300 mg Capsule PO (20:30)
[2025-03-05] MEDS: atorvastatin 40 mg Tablet PO (20:30)
[2025-03-05] MEDS: midodrine 5 mg TABLET PO (20:30)
[2025-03-05 22:00] LABS: Partial Thromboplastin Time 77.3 SECONDS (23.9-36.7)
--- NOTE | 2025-03-05 22:53 | PC.NURSE ---
Patient refuses to be turned, patient educated on the importance of turning to prevent pressure injuries but states he will only lay on his back.
[2025-03-05] MEDS: sodium chloride 0.9% 1,000 ML 50 ML IV (23:07)
[2025-03-06] VITALS (61 sets, daily range): BP systolic 97–128; BP diastolic 52–74; PULSE 68–94; RESP 13–27; TEMP 36.4–37.3; O2SAT 86–100
[2025-03-06] MEDS: meropenem 500 mg SDV IVP ×3 (04:08→21:15)
[2025-03-06] MEDS: heparin drip 25,000 UNIT/500 ML PREMIX 16 UNIT IV (04:17)
[2025-03-06 05:11] LABS: Basophils % 0.4 %; Eosinophils # 0.1 10^3/uL (0.0-0.8); Eosinophils % 2.8 %; Hematocrit 29.7 % (37-53); Lymphocytes # 0.7 10^3/uL (0.8-4.8); Lymphocytes % 13.5 %; Mean Corpuscular HGB Conc 29.3 g/dL (30-55); Mean Corpuscular Hemoglobin 30.2 pg (27-33); Mean Corpuscular Volume 103.1 fl (82-101); Mean Platelet Volume 10.1 fL (7.4-10.4); Monocytes # 0.3 10^3/uL (0.2-0.9); Monocytes % 5.7 %; Neutrophils # 3.88 10^3/uL (1.8-7.7); Neutrophils % 76.8 %; Nucleated Red Blood Cells % 0 %; Platelet Count 155 10^3/cmm (157-399); Red Blood Count 2.88 10^6/uL (3.85-5.65); Red Cell Distribution Width 17.2 % (12.1-15.1); White Blood Count 5.05 10^3/uL (3.29-11.43)
[2025-03-06 05:32] LABS: Partial Thromboplastin Time 50.8 SECONDS (23.9-36.7)
[2025-03-06] MEDS: heparin 5,000 unit/mL INJ 1 mL IVP (05:37)
[2025-03-06 05:41] LABS: Alanine Aminotransferase 23 U/L (0-41); Albumin Level 2.6 g/dL (3.5-5.2); Alkaline Phosphatase 45 U/L (40-130); Aspartate Amino Transferase 32 U/L (0-40); Blood Urea Nitrogen 12 mg/dL (8-23); Calcium 8.4 mg/dL (8.5-10.5); Carbon Dioxide 28 mmol/L (22-29); Chloride 103 mmol/L (98-107); Creatinine Clr Calc Pharmacy 126.1774; Glomerular Filtration Rate 95.6 mL/min (90-130); Glucose 132 mg/dL (65-115); Osmolality Calculated 286 mOsm/kg (285-295); Sodium 137 mmol/L (136-145); Total Bilirubin 0.4 mg/dL (0.15-1.2); Total Protein 5.6 g/dL (6.6-8.7)
[2025-03-06] MEDS: gabapentin 300 mg Capsule PO ×3 (08:17→21:15)
[2025-03-06] MEDS: aspirin 81 mg EC Tablet PO (08:17)
[2025-03-06] MEDS: pantoprazole 40 mg SDV IVP (08:17)
[2025-03-06] MEDS: linezolid premix 600 MG/300 ML PREMIX 300 MG IV ×2 (08:17→21:15)
[2025-03-06] MEDS: midodrine 5 mg TABLET PO ×3 (08:17→21:16)
[2025-03-06] MEDS: sucralfate 1 gm Tablet PO ×2 (08:18→17:29)
[2025-03-06] MEDS: oxyCODONE 5 mg IR Tab/Cap 10 MG PO ×2 (08:18→17:30)
[2025-03-06] MEDS: oxybutynin chloride XL 5 MG TABLET PO (08:18)
[2025-03-06] MEDS: amiodarone 200 mg Tablet 400 MG PO ×2 (09:19→17:30)
[2025-03-06] MEDS: acetaminophen 325 mg Tablet 650 MG PO (09:24)
[2025-03-06] MEDS: FUROsemide 10 mg/mL SDV 4mL 40 MG IVP (11:25)
[2025-03-06] MEDS: potassium chloride ER 20 mEq Tablet 40 MEQ PO (11:26)
[2025-03-06 12:27] LABS: Partial Thromboplastin Time 57.2 SECONDS (23.9-36.7)
--- NOTE | 2025-03-06 13:33 | PC.NURSE ---
received from icu in bed at 1300.report received .pt is alert and awake and oriented x 4.afib at controlled rate on monitor.denies pain at present.oriented to room environment.instructed to notify staff for any chest pain,sob,or for any concerns at all.pt verb understanding of instructions
--- NOTE | 2025-03-06 16:00 | P.PN_ITS ---
Subjective 2 Subjective: Patient denies any fevers this morning, no nausea, no vomiting, no abdominal pain - I had a detailed discussion with the p atient about his hospitalization - Nursing staff at bedside - Discussed his sepsis, he is immunocomp romised on active chemotherapy source is unclear I think he likely has pneumonia, and possibly a GI source - Nonetheless his blood cultures are acu te clear so far, I am still waiting on his urine cultures, he is requiring 3 L, afebrile overnight - Plan to continue IV antibiotics - There is also concern for multiorgan d ysfunction - For his NSTEMI, we discussed his echoc ardiogram has a normal EF, but troponins are elevated he has no chest pain but will continue heparin drip for at least 48 hours - Discussed type I versus type II NSTEMI -I offered to call patient's and usmna montanez however he tells me he will tell them - Discussed continue antibiotics he is a bit fluid overloaded we will stop his fluids diurese today Vitals/I&O/Wt Last Vital Signs Temp 98.3 F 03/06/25 04:00 Pulse 73 03/06/25 13:15 Resp 15 03/06/25 13:15 BP 104/63 03/06/25 13:15 Pulse Ox 95 03/06/25 13:15 O2 Del Method Nasal Cannula 03/06/25 09:11 O2 Flow Rate 3 03/06/25 09:11 03/06/25 03/06/25 03/06/25 06:59 14:59 22:59 Intake Total 748.625 / 3560.192 720.539 / 720.539 Output Total 700 / 1950 1000 / 1000 Balance 48.625 / 1610.192 -279.461 / -279.461 Weight last 48 hrs Weight 129.365 kg Weight 129.5 kg Weight 58.74 kg Weight 58.74 kg Physical Exam 2 Const: COMMON NORMALS: no acute distress and patient oriented x3 Resp: COMMON NORMALS: normal respiratory effort, No retractions and No use of accessory muscles AUSCULTATION: crackles and wheezes Cardio: COMMON NORMALS: regular rate, regular rhythm, S1 normal heart sound present and S2 normal heart sound present RATE: regular rate RHYTHM: r egular rhythm HEART SOUNDS: S1 normal heart sound present and S2 normal heart sound present GI: COMMON NORMALS: Normal to inspection, nondistended, normoactive bowel sounds present and non-tender Extremity: NARRATIVE EXTREMITY EXAM: Plus edema Neuro: COMMON NORMALS: patient oriented x3 Psych: COMMON NORMALS: mental status grossly normal Urinary Catheter Management: Orellana Latex: Cath Placed During This Visit: yes Urinary Catheter Date of Insertion: 03/04/25 Urinary Catheter Time of Insertion: 22:31 Data 03/06/25 04:12 03/06/25 04:12 Micro: Microbiology 03/05/25 16:00 Urine Culture - Preliminary Urine Catheterized 03/04/25 19:26 Blood Culture - Preliminary Blood NEGATIVE TO DATE 03/04/25 18:53 Blood Culture - Preliminary Blood NEGATIVE TO DATE A&P Assessment and plan (1) Sepsis: (2) Hypotension: (3) Elevated troponin: (4) Atrial fibrillation with rapid ventricular response: (5) Acute renal failure: (6) Metastatic colon cancer to liver: Patient is being followed by oncologist and actively getting chemotherapy (7) Hydrops of gallbladder: (8) Septic shock: Plan Septic shock - Source is unclear -History of immunocompromise state, on active chemotherapy - CT of the chest does show mild nonspecific pleural thickening in the posterior portions of lung bilaterally - Does have a history of Klebsiella pneumonia -Could be pneumonia - UA within normal limits - Does have hydropic gallbladder on CT imaging, no evidence of gallbladder wall thickening, this has been present on prior CT scans - Right Mediport catheter no surrounding erythema - Respiratory viral panel within normal limits Plan - Follow-up blood cultures - Follow urine cultures - Monitor for fevers - Continue Zyvox - Continue meropenem - Monitor clinical status closely - Full code - Heparin drip for DVT prophylaxis Pneumonia, as above Hydrops gallbladder - Clear liquids, advance diet - Gallbladder ultrasound Acute kidney injury ? Secondary to sepsis ? IV fluids NSTEMI - No chest pain complaints - Serial EKGs, serial troponins, telemetry monitoring - Cardiac echo CONCLUSIONS Normal left ventricular size, systolic function and wall thickness, with no regional wall motion abnormalities. Left ventricular ejection fraction is estimated at 60 %. Grade III/IV diastolic dysfunction (restrictive filling pattern), severely elevated filling pressures. There is no pericardial effusion. No significant valve abnormalities. Right atrial pressure is around 20 mm of mercury. - Aspirin, statin - Heparin drip - Cardiology consulted A-fib, start amiodarone drip, transition to amiodarone Metastatic colon cancer to the liver Acute anemia, on heparin drip, iron studies, recheck hemoglobin this afternoon Full code, Heparin drip PDMP PDMP Reviewed: Not Reviewed Attestations 2 Medical Necessity Statement*: Patient requires hospitalization for septic, pneumonia, NSTEMI, TALON, acute anemia Diagnoses Sepsis A41.9 Hypotension I95.9 Elevated troponin R79.89 Atrial fibrillation with rapid ventricular response I48.91 Acute renal failure N17.9 Metastatic colon cancer to liver C18.9; C78.7 Hydrops of gallbladder K82.1 Septic shock A41.9; R65.21
[2025-03-06 17:38] LABS: Hematocrit 29.6 % (37-53)
[2025-03-06 17:55] LABS: Iron 29 ug/dL (59-158); Percent Saturation 26.8 % (20-50); Total Iron Binding Capacity 108 mcg/dl; Unsaturated Iron Binding 79 ug/dL (112-347)
[2025-03-06 18:08] LABS: Ferritin 3102 ng/mL (30-400)
[2025-03-06] MEDS: atorvastatin 40 mg Tablet PO (21:15)
[2025-03-06] MEDS: trazodone 150 mg Tablet 300 MG PO (23:27)
[2025-03-06] MEDS: oxybutynin 5 mg Tablet PO (23:27)
[2025-03-07] VITALS (11 sets, daily range): BP systolic 104–130; BP diastolic 58–70; PULSE 74–101; RESP 16–25; TEMP 36.4–36.9; O2SAT 94–100
[2025-03-07 00:51] LABS: Partial Thromboplastin Time 52.4 SECONDS (23.9-36.7)
[2025-03-07 00:56] LABS: Alanine Aminotransferase 25 U/L (0-41); Albumin Level 2.9 g/dL (3.5-5.2); Alkaline Phosphatase 49 U/L (40-130); Anion Gap 9.9 (5-19); Aspartate Amino Transferase 21 U/L (0-40); Blood Urea Nitrogen 13 mg/dL (8-23); Calcium 8.5 mg/dL (8.5-10.5); Carbon Dioxide 28 mmol/L (22-29); Chloride 100 mmol/L (98-107); Creatinine Clr Calc Pharmacy 112.1577; Globulin 2.8 g/dL (1.3-4.6); Glomerular Filtration Rate 83.4 mL/min (90-130); Glucose 180 mg/dL (65-115); Osmolality Calculated 283 mOsm/kg (285-295); Potassium 3.9 mmol/L (3.5-5.1); Sodium 134 mmol/L (136-145); Total Bilirubin 0.2 mg/dL (0.15-1.2); Total Protein 5.7 g/dL (6.6-8.7)
[2025-03-07 01:00] LABS: Basophils % 0.5 %; Eosinophils # 0.2 10^3/uL (0.0-0.8); Eosinophils % 4.7 %; Hematocrit 29.7 % (37-53); Lymphocytes # 0.7 10^3/uL (0.8-4.8); Lymphocytes % 15.1 %; Mean Corpuscular HGB Conc 29.6 g/dL (30-55); Mean Corpuscular Hemoglobin 30.3 pg (27-33); Mean Corpuscular Volume 102.4 fl (82-101); Mean Platelet Volume 10.2 fL (7.4-10.4); Monocytes # 0.3 10^3/uL (0.2-0.9); Monocytes % 6.8 %; Neutrophils # 3.22 10^3/uL (1.8-7.7); Neutrophils % 72.4 %; Nucleated Red Blood Cells % 0 %; Platelet Count 182 10^3/cmm (157-399); Red Cell Distribution Width 16.8 % (12.1-15.1); White Blood Count 4.44 10^3/uL (3.29-11.43)
[2025-03-07] MEDS: heparin 5,000 unit/mL INJ 1 mL IVP ×2 (01:14→23:50)
[2025-03-07] MEDS: meropenem 500 mg SDV IVP ×3 (04:44→21:32)
[2025-03-07] MEDS: heparin drip 25,000 UNIT/500 ML PREMIX 25 UNIT IV (05:50)
[2025-03-07] MEDS: pantoprazole 40 mg SDV IVP (07:48)
[2025-03-07] MEDS: linezolid premix 600 MG/300 ML PREMIX 300 MG IV ×2 (07:49→21:33)
[2025-03-07] MEDS: oxyCODONE 5 mg IR Tab/Cap 10 MG PO ×4 (08:11→23:31)
[2025-03-07] MEDS: sucralfate 1 gm Tablet PO ×2 (09:02→17:24)
[2025-03-07] MEDS: gabapentin 300 mg Capsule PO ×3 (09:02→21:32)
[2025-03-07] MEDS: midodrine 5 mg TABLET PO ×3 (09:02→21:32)
[2025-03-07] MEDS: aspirin 81 mg EC Tablet PO (09:02)
[2025-03-07] MEDS: amiodarone 200 mg Tablet 400 MG PO ×2 (09:02→17:24)
[2025-03-07] MEDS: oxybutynin chloride XL 5 MG TABLET PO (09:02)
--- NOTE | 2025-03-07 14:04 | ECG_ITS ---
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
--- NOTE | 2025-03-07 14:06 | P.PN_ITS ---
Subjective 2 Subjective: Patient was seen this morning, currently alert oriented x 3, following all commands, no fevers, no chills, no cough, does report generalized weakness Vitals/I&O/Wt Last Vital Signs Temp 97.8 F 03/07/25 11:07 Pulse 85 03/07/25 11:07 Resp 24 H 03/07/25 11:07 BP 120/60 03/07/25 11:07 Pulse Ox 100 03/07/25 11:07 O2 Del Method Nasal Cannula 03/07/25 11:07 O2 Flow Rate 3 03/07/25 07:57 03/06/25 03/07/25 03/07/25 22:59 06:59 14:59 Intake Total 958.75 / 1800.256 538.683 / 2338.939 570.833 / 570.833 Output Total 1150 / 2150 Balance 958.75 / 800.256 -611.317 / 188.939 570.833 / 570.833 Weight last 48 hrs Weight 133 kg Weight 129.365 kg Physical Exam 2 Const: COMMON NORMALS: no acute distress and patient oriented x3 Resp: COMMON NORMALS: normal respiratory effort, No retractions, No use of accessory muscles and clear to auscultation bilaterally AUSCULTATION: clear to auscultation bilaterally Cardio: COMMON NORMALS: regular rate, regular rhythm, S1 normal heart sound present and S2 normal heart sound present RATE: regular rate RHYTHM: r egular rhythm HEART SOUNDS: S1 normal heart sound present and S2 normal heart sound present GI: COMMON NORMALS: Normal to inspection, nondistended, normoactive bowel sounds present and non-tender Extremity: NARRATIVE EXTREMITY EXAM: 1+ edema Neuro: COMMON NORMALS: patient oriented x3 Psych: COMMON NORMALS: mental status grossly normal Urinary Catheter Management: Orellana Latex: Cath Placed During This Visit: yes Urinary Catheter Date of Insertion: 03/04/25 Urinary Catheter Time of Insertion: 22:31 Data 03/07/25 00:30 03/07/25 00:30 Micro: Microbiology 03/05/25 16:00 Urine Culture - Final Urine Catheterized 03/06/25 23:22 Occult Blood (FIT) - Final Stool - Stool Aspirate A&P Assessment and plan (1) Sepsis: (2) Hypotension: (3) Elevated troponin: (4) Atrial fibrillation with rapid ventricular response: (5) Acute renal failure: (6) Metastatic colon cancer to liver: Patient is being followed by oncologist and actively getting chemotherapy (7) Hydrops of gallbladder: (8) Septic shock: Plan Septic shock - Source is unclear -History of immunocompromise state, on active chemotherapy - CT of the chest does show mild nonspecific pleural thickening in the posterior portions of lung bilaterally - Does have a history of Klebsiella pneumonia -Could be pneumonia - UA within normal limits - Does have hydropic gallbladder on CT imaging, no evidence of gallbladder wall thickening, this has been present on prior CT scans - Right Mediport catheter no surrounding erythema - Respiratory viral panel within normal limits Plan - Follow-up blood cultures, so far negative - Follow urine cultures, so far negative - Monitor for fevers - Continue Zyvox - Continue meropenem - Monitor clinical status closely - Full code - Heparin drip for DVT prophylaxis Pneumonia, as above Hydrops gallbladder - Clear liquids, advance diet - Gallbladder ultrasound Acute kidney injury ? Secondary to sepsis ? IV fluids NSTEMI, baseline troponin 158, 6 hour 205 - No chest pain complaints - Serial EKGs, serial troponins, telemetry monitoring - Cardiac echo CONCLUSIONS Normal left ventricular size, systolic function and wall thickness, with no regional wall motion abnormalities. Left ventricular ejection fraction is estimated at 60 %. Grade III/IV diastolic dysfunction (restrictive filling pattern), severely elevated filling pressures. There is no pericardial effusion. No significant valve abnormalities. Right atrial pressure is around 20 mm of mercury. - Aspirin, statin - Heparin drip - Cardiology consulted - N.p.o. midnight for cardiac stress test tomorrow A-fib, start amiodarone drip, transition to amiodarone Metastatic colon cancer to the liver Acute anemia, on heparin drip, iron studies, recheck hemoglobin this afternoon Full code, Heparin drip Plan for today, PT OT, up out of bed, into a chair, IV antibiotics will likely de-escalate to p.o. antibiotics tomorrow once blood cultures are negative we will for over 72 hours, n.p.o. midnight for cardiac stress test tomorrow PDMP PDMP Reviewed: Not Reviewed Attestations 2 Medical Necessity Statement*: Patient requires hospitalization for sepsis, fevers, on chemotherapy, with NSTEMI, going for cardiac stress test tomorrow morning Diagnoses Sepsis A41.9 Hypotension I95.9 Elevated troponin R79.89 Atrial fibrillation with rapid ventricular response I48.91 Acute renal failure N17.9 Metastatic colon cancer to liver C18.9; C78.7 Hydrops of gallbladder K82.1 Septic shock A41.9; R65.21
--- NOTE | 2025-03-07 15:04 | P.PN_ITS ---
Subjective 2 Subjective: Patient says he is feeling fine except his knee hurt which is a chronic problem Vitals/I&O/Wt Last Vital Signs Temp 97.8 F 03/07/25 11:07 Pulse 85 03/07/25 11:07 Resp 24 H 03/07/25 14:15 BP 120/60 03/07/25 11:07 Pulse Ox 94 03/07/25 14:15 O2 Del Method Nasal Cannula 03/07/25 11:07 O2 Flow Rate 3 03/07/25 07:57 03/07/25 03/07/25 03/07/25 06:59 14:59 22:59 Intake Total 538.683 / 2338.939 570.833 / 570.833 Output Total 1150 / 2150 1350 / 1350 Balance -611.317 / 188.939 -779.167 / -779.167 Weight last 48 hrs Weight 293 lb 3.437 oz Weight 285 lb 3.2 oz Physical Exam 2 Const: OTHER: GENERAL: Patient is alert, awake and oriented x3. HEART: Regular S1 and S2. No murmur, rub or gallop. LUNGS: Clear to auscultate bilaterally. CENTRAL NERVOUS SYSTEM: Grossly nonfocal. EXTREMITIES: Lower extremities with out edema bilaterally. Urinary Catheter Management: Orellana Latex: Cath Placed During This Visit: yes Urinary Catheter Date of Insertion: 03/04/25 Urinary Catheter Time of Insertion: 22:31 Data 03/07/25 00:30 03/07/25 00:30 Micro: Microbiology 03/05/25 16:00 Urine Culture - Final Urine Catheterized 03/06/25 23:22 Occult Blood (FIT) - Final Stool - Stool Aspirate A&P Assessment and plan (1) Afib: (2) Elevated troponin: (3) Atrial fibrillation with rapid ventricular response: Plan Patient denies any chest pain, overall doing fine from a cardiovascular perspective. Patient has metastatic disease currently stable denies any chest pain we will continue to manage medically only. Add beta-mahogany metoprolol 12.5 mg once a day succinate If okay with medicine may need to be started on p.o. anticoagulation since patient will be a bleeding risk due to metastatic disease PDMP PDMP Reviewed: Not Reviewed Attestations 2 Medical Necessity Statement*: Patient require continuation hospitalization for above defined care Coding Level of Care Code Acute Code for Chg Fwd Diagnoses Longstanding persistent atrial fibrillation I48.11 Atrial fibrillation type: longstanding persistent Elevated troponin R79.89 Atrial fibrillation with rapid ventricular response I48.91
[2025-03-07 15:46] LABS: Partial Thromboplastin Time 49.6 SECONDS (23.9-36.7)
--- NOTE | 2025-03-07 17:55 | PC.NURSE ---
Patient rolled to assess skin on his bacside and to change linens. Patient cried out in pain and pointed to his right side and said his liver hurts. Contacted Dr. Carter by telephone and he ordered a one time does for oxycodone now.
[2025-03-07] MEDS: atorvastatin 40 mg Tablet PO (21:32)
[2025-03-07] MEDS: trazodone 150 mg Tablet 300 MG PO (21:32)
--- NOTE | 2025-03-07 22:11 | CTR_ITS ---
PROCEDURE INFORMATION: Exam: CT Head Without Contrast Exam date and time: 03/07/2025 11:07 PM Age: 70 years old Clinical indication: Visual disturbance; New onset of anisocoria; Additional info: Unequal pupil TECHNIQUE: Imaging protocol: Computed tomography of the head without contrast. Radiation optimization: All CT scans at this facility use at least one of these dose optimization techniques: automated exposure control; mA and/or kV adjustment per patient size (includes targeted exams where dose is matched to clinical indication); or iterative reconstruction. COMPARISON: CT head wo con* [id number] 02/09/2025 2:15 PM RADIATION DOSE METRICS: Total DLP (mGy-cm): 1253.13 FINDINGS: Brain: No acute intracranial hemorrhage, abnormal extra-axial fluid collection, mass effect, or midline shift. Minimal to mild periventricular and subcortical white matter hypodensities compatible with changes of minimal to mild burden chronic small-vessel disease. Cerebral ventricles: The ventricular system is within normal limits of variation for the patient's age. Paranasal sinuses: No acute sinusitis. Operative changes of FESS. Mastoid air cells: Visualized mastoid air cells are well aerated. Bones: No acute fracture. Soft tissues: Grossly unremarkable. Vasculature: Atheromatous changes are again seen within the V4 segment of the right vertebral artery. CT/CT head wo con* [id number] IMPRESSION: 1. No acute intracranial findings. 2. Chronic/incidental findings as described above.
[2025-03-07 22:50] LABS: Partial Thromboplastin Time 50.2 SECONDS (23.9-36.7)
[2025-03-08] VITALS (11 sets, daily range): BP systolic 113–147; BP diastolic 46–79; PULSE 77–100; RESP 12–26; TEMP 36.9–37.6; O2SAT 92–100
--- NOTE | 2025-03-08 00:52 | PC.NURSE ---
2211- Notified Dr. Grijalva that patient right pupil is smaller than left. In depth neuro assessment done and no other deficits noted. Patient has have speech that can be difficult to follow but patient was able to appropriately read sentences without slurring on NIH aassessment. His voice is also very raspy sounding so it makes it difficult to hear him. Received orders to get a head CT. After head CT the results were relayed to Dr. Grijalva by the radiologist as mentioned in the report.
[2025-03-08] MEDS: heparin drip 25,000 UNIT/500 ML PREMIX 34 UNIT IV (01:20)
[2025-03-08] MEDS: meropenem 500 mg SDV IVP (05:15)
[2025-03-08 05:25] LABS: Eosinophils # 0.2 10^3/uL (0.0-0.8); Eosinophils % 5.4 %; Hematocrit 29.6 % (37-53); Lymphocytes # 0.5 10^3/uL (0.8-4.8); Lymphocytes % 14.7 %; Mean Corpuscular HGB Conc 30.1 g/dL (30-55); Mean Corpuscular Hemoglobin 31.2 pg (27-33); Mean Corpuscular Volume 103.9 fl (82-101); Mean Platelet Volume 9.7 fL (7.4-10.4); Monocytes # 0.4 10^3/uL (0.2-0.9); Monocytes % 10.2 %; Neutrophils # 2.43 10^3/uL (1.8-7.7); Neutrophils % 68.6 %; Nucleated Red Blood Cells % 0 %; Platelet Count 172 10^3/cmm (157-399); Red Blood Count 2.85 10^6/uL (3.85-5.65); Red Cell Distribution Width 16.9 % (12.1-15.1); White Blood Count 3.54 10^3/uL (3.29-11.43)
[2025-03-08 05:49] LABS: Alanine Aminotransferase 19 U/L (0-41); Albumin Level 2.7 g/dL (3.5-5.2); Alkaline Phosphatase 62 U/L (40-130); Anion Gap 10.2 (5-19); Aspartate Amino Transferase 12 U/L (0-40); Blood Urea Nitrogen 12 mg/dL (8-23); Calcium 8.7 mg/dL (8.5-10.5); Carbon Dioxide 31 mmol/L (22-29); Chloride 99 mmol/L (98-107); Creatinine Clr Calc Pharmacy 128.1875; Globulin 2.4 g/dL (1.3-4.6); Glomerular Filtration Rate 111.5 mL/min (90-130); Glucose 146 mg/dL (65-115); Osmolality Calculated 284 mOsm/kg (285-295); Potassium 4.2 mmol/L (3.5-5.1); Sodium 136 mmol/L (136-145); Total Bilirubin 0.3 mg/dL (0.15-1.2); Total Protein 5.1 g/dL (6.6-8.7)
[2025-03-08] MEDS: oxyCODONE 5 mg IR Tab/Cap 10 MG PO ×2 (06:12→18:06)
[2025-03-08] MEDS: heparin 5,000 unit/mL INJ 1 mL IVP (06:13)
[2025-03-08] MEDS: regadenoson 0.4 Mg/5 ml Syringe IVP (07:10)
[2025-03-08] MEDS: aspirin 81 mg EC Tablet PO (09:35)
[2025-03-08] MEDS: gabapentin 300 mg Capsule PO ×3 (09:35→21:44)
[2025-03-08] MEDS: sucralfate 1 gm Tablet PO ×2 (09:35→17:18)
[2025-03-08] MEDS: midodrine 5 mg TABLET PO ×3 (09:35→21:43)
[2025-03-08] MEDS: metoprolol succinate ER (24 HR) 25 mg Tablet 12.5 MG PO ×2 (09:36→13:49)
[2025-03-08] MEDS: pantoprazole 40 mg SDV IVP (09:36)
[2025-03-08] MEDS: oxybutynin chloride XL 5 MG TABLET PO (09:36)
[2025-03-08] MEDS: amiodarone 200 mg Tablet 400 MG PO ×2 (09:36→17:18)
[2025-03-08] MEDS: linezolid premix 600 MG/300 ML PREMIX 300 MG IV (09:38)
--- NOTE | 2025-03-08 09:58 | P.PN_ITS ---
<Statement entered by Uche Singh MD - 03/09/25 17:47> Patient was evaluated and cared for in conjunction with an advanced practice practitioner. I personally examined the patient and reviewed the chart and all pertinent data including imaging, telemetry, and laboratory results. I discussed the patient in detail with the advanced practice practitioner. Please see their note for complete H&P testing result and agreed upon plan of care for the patient. Subjective 2 Subjective: Patient doing well with no complaints. States he feels better. Denies chest pain or shortness of breath. Vitals/I&O/Wt Last Vital Signs Temp 98.9 F 03/08/25 08:00 Pulse 96 03/08/25 08:00 Resp 24 H 03/08/25 08:00 BP 147/79 03/08/25 08:00 Pulse Ox 96 03/08/25 08:00 O2 Del Method Nasal Cannula 03/08/25 08:00 O2 Flow Rate 3 03/08/25 08:00 03/07/25 03/08/25 03/08/25 22:59 06:59 14:59 Intake Total 964.333 / 1535.166 682.934 / 2218.100 Output Total 450 / 1800 400 / 2200 Balance 514.333 / -264.834 282.934 / 18.100 Weight last 48 hrs Weight 294 lb 5.074 oz Weight 293 lb 3.437 oz Physical Exam 2 Narrative: General: No apparent distress Muskuloskeletal: Full ROM Respiratory: Normal respiratory effort, clear to auscultation bilaterally throughout all lung toscano, no use of accessory muscles Cardio: No JVD, irregularly irregular rate and rhythm, S1 S2 normal, no murmurs, peripheral pulses 2+ radial palpated bilaterally Extremities: Full ROM, normal, normal capillary refill, no cyanosis or edema Neuro: Alert and oriented x4, no focal motor deficits Psych: Affect normal Skin: No rashes or lesions noted, no wounds Urinary Catheter Management: Orellana Latex: Cath Placed During This Visit: yes Urinary Catheter Date of Insertion: 03/04/25 Urinary Catheter Time of Insertion: 22:31 Data 03/08/25 05:03 03/08/25 05:03 Micro: Microbiology 03/05/25 16:00 Urine Culture - Final Urine Catheterized A&P Assessment and plan (1) Afib: (2) Elevated troponin: (3) Atrial fibrillation with rapid ventricular response: Plan Patient denies any chest pain, overall doing fine from a cardiovascular perspective. Patient has metastatic disease currently stable denies any chest pain we will continue to manage medically only. Continue metoprolol 12.5 mg daily. If okay with medicine may need to be started on p.o. anticoagulation since patient will be a bleeding risk due to metastatic disease as well as anemia with H&H 8.9/29.6. He states he took Xarelto at home, although I do not see it in his home medication list. Continue amiodarone 400 BIDx1 week, then 400 daily x1 week, then 200 daily from then on. PDMP PDMP Reviewed: Not Reviewed Attestations 2 Medical Necessity Statement*: Deferred to primary Coding Level of Care Code Acute Code for [facility] Fwd Diagnoses Longstanding persistent atrial fibrillation I48.11 Atrial fibrillation type: longstanding persistent Elevated troponin R79.89 Atrial fibrillation with rapid ventricular response I48.91
[2025-03-08 12:07] LABS: Partial Thromboplastin Time 50.7 SECONDS (23.9-36.7)
--- NOTE | 2025-03-08 12:43 | PC.SOCIAL ---
IMM Update pg 2 of IMM Updated and reviewed w/ patient. Copy provided and copy dated, initialed and placed in chart.
[2025-03-08] MEDS: digoxin 125 mcg Tablet PO (13:50)
--- NOTE | 2025-03-08 14:04 | NMCV_ITS ---
NM jaja perf SPECT r/s* [id number] Charan Voss Age: 70 Gender: M : 1955 Exam Date: 03/08/2025 06:37 Ordering Phys: Blanco Carter MD Technologist: JOSE ALEJANDRO Hernandez Exam Location: [facility] Indications: cp STRESS TEST Please [facility] IMAGE PROTOCOL Rest/Stress 1 Lexiscan Day Radiopharmaceutical Dose (mCi) Administration Site Administered by Rest: Tc-99m 11 IV Delfina Shannon, CONSTRUCTION SITE MANAGER Sestamibi Stress:Tc-99m 33 IV Delfina Shiva, CONSTRUCTION SITE MANAGER Sestamibi Rest: 08-Mar-2025 60 Discovery 630 Stress: 08-Mar-2025 30 Discovery 630 0.4mg Lexiscan. Supine position only as patient was unable to lay prone. Patient was unable to turn over on their stomach for imaging. SPECT RESULTS Technical Quality: Good Raw Data Analysis: Normal Image Corrections: No attenuation or motion correction applied Summed Stress Score: 0 Summed Rest Score: 1 Summed Difference Score: 0 PERFUSION FINDINGS Patchy areas of slightly decreased tracer uptake was noted in the inferoseptal region with no significant reversibility FUNCTIONAL RESULTS (calculated via Gated SPECT) Stress Image LV EF (%): 80 Stress EDV (mL):146 TID: 0.82 Stress ESV (mL):29 FUNCTIONAL FINDINGS: Segmental wall motion analysis revealing no gross wall motion abnormalities IMPRESSIONS 1. Myocardial perfusion imaging revealing patchy areas of persistent decreased tracer uptake in the inferoseptal region suggesting myocardial scarring versus attenuation artifact 2. Normal LV ejection fraction of 80%. 3. LV wall motion analysis revealing no gross wall motion abnormalities. 4. Normal LV volume Low probability for coronary ischemia, based on the above findings Dr Raiza Orourke MD [facility] (Electronically Signed) Final Date: 08 March 2025 14:10 S
--- NOTE | 2025-03-08 16:12 | P.PN_ITS ---
Subjective 2 Subjective: Patient presented with sepsis status post chemotherapy. He is on palliative chemotherapy for metastatic colon cancer. Patient's stress test was negative for ischemia Patient states he is in chronic pain in his back and legs but this is not new. Vitals/I&O/Wt Last Vital Signs Temp 98.6 F 03/08/25 16:00 Pulse 95 03/08/25 16:00 Resp 24 H 03/08/25 16:00 BP 135/65 03/08/25 16:00 Pulse Ox 95 03/08/25 16:00 O2 Del Method Nasal Cannula 03/08/25 16:00 O2 Flow Rate 3 03/08/25 16:00 03/08/25 03/08/25 03/08/25 06:59 14:59 22:59 Intake Total 682.934 / 2218.100 1137.9 / 1137.9 Output Total 400 / 2200 650 / 650 Balance 282.934 / 18.100 1137.9 / 1137.9 -650 / 487.9 Weight last 48 hrs Weight 133.5 kg Weight 133 kg Physical Exam 2 Narrative: Alert oriented to self and place. Shows some signs of confusion but then can correct himself Heart regular normal S1-S2 without murmurs clicks gallops or rubs Lungs clear to auscultation without wheezes rales or rhonchi Extremities no clubbing cyanosis or edema Urinary Catheter Management: Orellana Latex: Cath Placed During This Visit: yes Urinary Catheter Date of Insertion: 03/04/25 Urinary Catheter Time of Insertion: 22:31 Data 03/08/25 05:03 03/08/25 05:03 Other data: Nuc med stress test is negative for ischemia A&P Assessment and plan (1) Sepsis: (2) Hypotension: (3) Elevated troponin: (4) Atrial fibrillation with rapid ventricular response: (5) Acute renal failure: (6) Metastatic colon cancer to liver: Patient is being followed by oncologist and actively getting chemotherapy (7) Hydrops of gallbladder: (8) Septic shock: Plan Septic shock - Source is unclear -History of immunocompromise state, on active chemotherapy - CT of the chest does show mild nonspecific pleural thickening in the posterior portions of lung bilaterally - Does have a history of Klebsiella pneumonia - UA within normal limits - Does have hydropic gallbladder on CT imaging, no evidence of gallbladder wall thickening, this has been present on prior CT scans - Right Mediport catheter no surrounding erythema - Respiratory viral panel within normal limits Plan - Follow-up blood cultures, so far negative - Follow urine cultures, so far negative - Negative for fevers - Will change to oral Omnicef to complete a 10-day course -Improving Hydrops gallbladder - Clear liquids, advance diet Acute kidney injury ? Secondary to sepsis Resolved now NSTEMI, baseline troponin 158, 6 hour 205 - No chest pain complaints - Serial EKGs, serial troponins, telemetry monitoring - Cardiac echo CONCLUSIONS Normal left ventricular size, systolic function and wall thickness, with no regional wall motion abnormalities. Left ventricular ejection fraction is estimated at 60 %. Grade III/IV diastolic dysfunction (restrictive filling pattern), severely elevated filling pressures. There is no pericardial effusion. No significant valve abnormalities. Right atrial pressure is around 20 mm of mercury. STRESS TEST NEGATIVE A-fib, start amiodarone drip, transition to amiodarone: Continue amiodarone 400 BIDx1 week, then 400 daily x1 week, then 200 daily from then on. Resume Xarelto 10 mg qpm Metastatic colon cancer to the liver-due for chemo a week from tomorrow. Will need to cancel due to performance status and acute hospitalization Full code, Plan for today, PT OT, up out of bed, into a chair (NOT done b/c not ordered) . change to oral abx. spoke with who is having TKA tomorrow here. Decision to go to SNF for a few weeks to recover since can not take care of him. CM for SNF PDMP PDMP Reviewed: Not Reviewed Attestations 2 Medical Necessity Statement*: Patient was hospitalized for sepsis. He is now recovering and showing marked improvement. Patient needs to remain for discharge to a shelter facility as that has not been started yet Coding Level of Care Code Acute Code for Chg Fwd Diagnoses Sepsis A41.9 Hypotension I95.9 Elevated troponin R79.89 Atrial fibrillation with rapid ventricular response I48.91 Acute renal failure N17.9 Metastatic colon cancer to liver C18.9; C78.7 Hydrops of gallbladder K82.1 Septic shock A41.9; R65.21
[2025-03-08] MEDS: cefdinir 300 MG CAPSULE PO (17:18)
[2025-03-08] MEDS: rivaroxaban 10 mg Tablet 20 MG PO (17:18)
[2025-03-08] MEDS: atorvastatin 40 mg Tablet PO (21:43)
[2025-03-08] MEDS: trazodone 150 mg Tablet 300 MG PO (21:43)
[2025-03-09] VITALS (12 sets, daily range): BP systolic 120–152; BP diastolic 67–86; PULSE 83–93; RESP 16–28; TEMP 26.6–37; O2SAT 92–99
[2025-03-09] MEDS: oxyCODONE 5 mg IR Tab/Cap 10 MG PO ×3 (00:41→23:12)
[2025-03-09 04:32] LABS: Basophils % 0.5 %; Eosinophils # 0.3 10^3/uL (0.0-0.8); Eosinophils % 7.1 %; Hematocrit 30.3 % (37-53); Lymphocytes # 0.8 10^3/uL (0.8-4.8); Lymphocytes % 19.7 %; Mean Corpuscular HGB Conc 29.4 g/dL (30-55); Mean Corpuscular Hemoglobin 30.8 pg (27-33); Mean Corpuscular Volume 104.8 fl (82-101); Mean Platelet Volume 9.4 fL (7.4-10.4); Monocytes # 0.4 10^3/uL (0.2-0.9); Monocytes % 10.6 %; Neutrophils # 2.42 10^3/uL (1.8-7.7); Neutrophils % 61.1 %; Nucleated Red Blood Cells % 0 %; Platelet Count 171 10^3/cmm (157-399); Red Blood Count 2.89 10^6/uL (3.85-5.65); Red Cell Distribution Width 16.8 % (12.1-15.1); White Blood Count 3.96 10^3/uL (3.29-11.43)
[2025-03-09 04:51] LABS: Anion Gap 8.2 (5-19); Blood Urea Nitrogen 11 mg/dL (8-23); Calcium 9.3 mg/dL (8.5-10.5); Carbon Dioxide 34 mmol/L (22-29); Chloride 103 mmol/L (98-107); Creatinine Clr Calc Pharmacy 128.1875; Glomerular Filtration Rate 111.5 mL/min (90-130); Glucose 114 mg/dL (65-115); Osmolality Calculated 292 mOsm/kg (285-295); Potassium 4.2 mmol/L (3.5-5.1); Sodium 141 mmol/L (136-145)
[2025-03-09] MEDS: pantoprazole DR 40 mg Tablet PO (06:23)
[2025-03-09] MEDS: amiodarone 200 mg Tablet 400 MG PO ×2 (07:35→17:46)
[2025-03-09] MEDS: aspirin 81 mg EC Tablet PO (07:35)
[2025-03-09] MEDS: gabapentin 300 mg Capsule PO ×3 (07:35→21:58)
[2025-03-09] MEDS: oxybutynin chloride XL 5 MG TABLET PO (07:36)
[2025-03-09] MEDS: midodrine 5 mg TABLET PO ×3 (07:36→21:58)
[2025-03-09] MEDS: sucralfate 1 gm Tablet PO ×2 (07:36→17:46)
[2025-03-09] MEDS: digoxin 125 mcg Tablet PO (07:37)
[2025-03-09] MEDS: cefdinir 300 MG CAPSULE PO ×2 (07:38→17:46)
--- NOTE | 2025-03-09 10:33 | P.PN_ITS ---
<Statement entered by Uche Singh MD - 03/09/25 17:45> Patient was evaluated and cared for in conjunction with an advanced practice practitioner. I personally examined the patient and reviewed the chart and all pertinent data including imaging, telemetry, and laboratory results. I discussed the patient in detail with the advanced practice practitioner. Please see their note for complete H&P testing result and agreed upon plan of care for the patient. Feeling better Had a negative stress test yesterday GENERAL: Patient is alert, awake and oriented x3. HEART: Regular S1 and S2. No murmur, rub or gallop. LUNGS: Clear to auscultate bilaterally. CENTRAL NERVOUS SYSTEM: Grossly nonfocal. EXTREMITIES: Lower extremities with out edema bilaterally. Assessment and plan Metastatic carcinoma of the colon Ant-IN-rpwxowcru IA Atrial fibrillation Remains in sinus rhythm, metastatic carcinoma of the colon treatment as per medicine and oncology Stress test was negative Continue medical management Subjective 2 Subjective: Patient is doing well with no complaints. He was started on Xarelto 20 mg. H&H stable at 8.9 and 30.3. Blood pressure stable. Stress test was normal. Vitals/I&O/Wt Last Vital Signs Temp 98.2 F 03/09/25 08:00 Pulse 93 03/09/25 10:22 Resp 28 H 03/09/25 08:00 BP 146/73 03/09/25 08:00 Pulse Ox 92 03/09/25 10:22 O2 Del Method Nasal Cannula 03/09/25 10:22 O2 Flow Rate 2 03/09/25 10:22 03/08/25 03/09/25 03/09/25 22:59 06:59 14:59 Intake Total 660 / 1797.9 480 / 480 Output Total 1200 / 1200 850 / 2050 Balance -540 / 597.9 -850 / -252.1 480 / 480 Weight last 48 hrs Weight 293 lb 3.437 oz Weight 294 lb 5.074 oz Physical Exam 2 Narrative: General: No apparent distress Muskuloskeletal: Full ROM Respiratory: Normal respiratory effort, clear to auscultation bilaterally throughout all lung toscano, no use of accessory muscles Cardio: No JVD, irregularly irregular rate and rhythm, S1 S2 normal, no murmurs, peripheral pulses 2+ radial palpated bilaterally Extremities: Full ROM, normal, normal capillary refill, no cyanosis or edema Neuro: Alert and oriented x4, no focal motor deficits Psych: Affect normal Skin: No rashes or lesions noted, no wounds Urinary Catheter Management: Orellana Latex: Cath Placed During This Visit: yes Urinary Catheter Date of Insertion: 03/04/25 Urinary Catheter Time of Insertion: 22:31 Data 03/09/25 04:15 03/09/25 04:15 A&P Assessment and plan (1) Afib: (2) Elevated troponin: (3) Atrial fibrillation with rapid ventricular response: Plan Patient denies any chest pain, overall doing fine from a cardiovascular perspective. Patient has metastatic disease currently stable denies any chest pain stress test we will continue to manage medically only. Continue metoprolol 12.5 mg daily. Continue Xarelto for stroke prevention. Monitor for worsening signs or symptoms of anemia or signs of bleeding. Continue amiodarone 400 BIDx1 week, then 400 daily x1 week, then 200 daily from then on. PDMP PDMP Reviewed: Not Reviewed Attestations 2 Medical Necessity Statement*: Defer to primary Coding Level of Care Code Acute Code for [facility] Fwd Diagnoses Longstanding persistent atrial fibrillation I48.11 Atrial fibrillation type: longstanding persistent Elevated troponin R79.89 Atrial fibrillation with rapid ventricular response I48.91
[2025-03-09 13:54] LABS: ABG PCO2 59.7 mmHg (35-45); ABG PH Result 7.38 (7.35-7.45); Alveolar-Arterial Oxygen Gradi 7.3 mmHg (5-10); Arterial Blood Gas Hematocrit 31.6 % (42-52); Base Excess ABG 8.7 mmol/L (-2.0-2.0); Blood Gas Allen Test Pos; Blood Gas Operator Identificat glc; Blood Gas Sample Site Radial, right; Blood Gas Sample Type Arterial; Carboxyhemoglobin 2.2 %THgb (0.4-20.1); HCO3 ABG 35.3 mmol/L (22-26); Ionized Calcium Level - ABG 1.3 mmol/L (1.1-1.4); Methemoglobin 0.1 % (0.4-1.5); Oxygen Device NC; Oxygen Saturation ABG 95.2; PO2 ABG 71.2 mmHg (80.0-100.0); PO2 FiO2 Ratio Arterial Blood 254; Potassium Level - ABG 4.1 mmol/L (3.5-5.0); Total Hemoglobin 10.3 g/dL (14-18)
[2025-03-09] MEDS: acetaminophen 325 mg Tablet 650 MG PO (16:06)
--- NOTE | 2025-03-09 17:27 | P.PN_ITS ---
Subjective 2 Subjective: Answers orientation questions appropriately but was talk about his father and fixing a room. Vitals/I&O/Wt Last Vital Signs Temp 98.5 F 03/09/25 16:00 Pulse 86 03/09/25 16:00 Resp 24 H 03/09/25 16:00 BP 152/75 03/09/25 16:00 Pulse Ox 97 03/09/25 16:00 O2 Del Method Nasal Cannula 03/09/25 16:00 O2 Flow Rate 2 03/09/25 16:00 03/09/25 03/09/25 03/09/25 06:59 14:59 22:59 Intake Total 1220 / 1220 Output Total 850 / 2050 Balance -850 / -252.1 1220 / 1220 Weight last 48 hrs Weight 133 kg Weight 133.5 kg Physical Exam 2 Narrative: Alert oriented to self and place. Shows some signs of confusion but then can correct himself Heart regular normal S1-S2 without murmurs clicks gallops or rubs Lungs clear to auscultation without wheezes rales or rhonchi Extremities no clubbing cyanosis or edema Urinary Catheter Management: Orellana Latex: Cath Placed During This Visit: yes Urinary Catheter Date of Insertion: 03/04/25 Urinary Catheter Time of Insertion: 22:31 Data 03/09/25 04:15 03/09/25 04:15 A&P Assessment and plan (1) Sepsis: (2) Hypotension: (3) Elevated troponin: (4) Atrial fibrillation with rapid ventricular response: (5) Acute renal failure: (6) Metastatic colon cancer to liver: Patient is being followed by oncologist at [facility] and receives chemotherapy every other Saturday. (7) Hydrops of gallbladder: (8) Septic shock: Plan Septic shock - Source is unclear -History of immunocompromise state, on active chemotherapy - CT of the chest does show mild nonspecific pleural thickening in the posterior portions of lung bilaterally - Does have a history of Klebsiella pneumonia - UA within normal limits - Does have hydropic gallbladder on CT imaging, no evidence of gallbladder wall thickening, this has been present on prior CT scans - Right Mediport catheter no surrounding erythema - Respiratory viral panel within normal limits Plan - Cultures remain negative, no fevers - On Omnicef to complete a 10-day course Hydrops gallbladder - Clear liquids, advance diet Acute kidney injury-max creatinine 1.6 has been normal since the second day of admission Resolved now NSTEMI -nuc med stress test negative Grade 3 of 4 diastolic dysfunction; severely elevated filling pressures A-fib, start amiodarone drip, transition to amiodarone: Continue amiodarone 400 BIDx1 week, then 400 daily x1 week, then 200 daily from then on. Resume Xarelto 10 mg qpm Metastatic colon cancer to the liver-due for chemo a week from today. Will need to cancel due to performance status and acute hospitalization Full code Plan for today, Decision to go to SNF for a few weeks to recover since can not take care of him. Awaiting acceptance at facility. 1 facility excepted on due to an antibiotic which is unclear since he is on Omnicef orally Because of confusion I checked an ABG which is in normal limits with a pH of 7.38 CO2 of 59 O2 71 PDMP PDMP Reviewed: Not Reviewed Attestations 2 Medical Necessity Statement*: Patient was hospitalized for sepsis. He is now recovering and showing marked improvement. Patient needs to remain for acceptance into [facility] facility due to currently hospitalized for a knee replacement and inability to care for patient who is severely decompensated Coding Level of Care Code Acute Code for Chg Fwd Diagnoses Sepsis without acute organ dysfunction, due to unspecified organism A41.9 Sepsis type: sepsis due to unspecified organism Sepsis acute organ dysfunction status: without acute organ dysfunction Hypotension, unspecified hypotension type I95.9 Hypotension type: unspecified hypotension type Elevated troponin R79.89 Atrial fibrillation with rapid ventricular response I48.91 Acute renal failure, unspecified acute renal failure type N17.9 Acute renal failure type: unspecified Metastatic colon cancer to liver C18.9; C78.7 Hydrops of gallbladder K82.1 Septic shock A41.9; R65.21
[2025-03-09] MEDS: rivaroxaban 10 mg Tablet 20 MG PO (17:46)
--- NOTE | 2025-03-09 19:02 | ECG_ITS ---
[employer] Test Date: 2025-03-09 Pat Name: Charan Voss Department: Room: 102 Gender: Male [employer] Programmer: : 1955 Requested By: Jeronimo Chao Order Number: [id number] Reading MD: Measurements Intervals [place] Rate: 86 P: 0 OH: 0 QRS: 3 QRSD: 114 T: 31 QT: 363 QTc: 436 Interpretive Statements ATRIAL FIBRILLATION SEPTAL MYOCARDIAL INFARCTION , POSSIBLY ACUTE [40+ ms Q WAVE IN V1/V2] ACUTE VT INTERPRETATION BASED ON A DEFAULT AGE OF 40 YEARS Compared to ECG 03/05/2025 06:26:31 No significant changes [email or web address]
[2025-03-09] MEDS: atorvastatin 40 mg Tablet PO (21:58)
[2025-03-09] MEDS: trazodone 150 mg Tablet 300 MG PO (21:58)
[2025-03-10] VITALS (13 sets, daily range): BP systolic 132–168; BP diastolic 65–81; PULSE 73–97; RESP 20–30; TEMP 36.6–37.6; O2SAT 95–100; BMI 35.0
--- NOTE | 2025-03-10 00:40 | XRR_ITS ---
PROCEDURE INFORMATION: Exam: XR Chest Exam date and time: 03/10/2025 12:44 AM Age: 70 years old Clinical indication: Shortness of breath; Prior surgery; Surgery date: 6+ months; Surgery type: Back surgery; Additional info: Patient SOB Dr ordered TECHNIQUE: Imaging protocol: Radiologic exam of the chest. Views: 1 view. COMPARISON: [place] [id number] 03/04/2025 8:03 PM FINDINGS: Tubes, catheters and devices: There is a right-sided port a catheter with tip in the region of the low SVC. Lungs: There is pulmonary vascular congestion with mild perihilar interstitial and alveolar opacities. Pleural spaces: Unremarkable. No pleural effusion. No pneumothorax. Heart/Mediastinum: Stable cardiomegaly. Bones/joints: Postsurgical changes from posterior fusion with Marr rods noted. XR/XR chest 1V portable [id number] IMPRESSION: Cardiomegaly associated findings suggestive of early pulmonary edema.
[2025-03-10] MEDS: FUROsemide 10 mg/mL SDV 2mL 20 MG IVP (02:39)
[2025-03-10 04:42] LABS: Basophils % 0.2 %; Eosinophils # 0.4 10^3/uL (0.0-0.8); Eosinophils % 6.4 %; Hematocrit 30.9 % (37-53); Lymphocytes # 0.6 10^3/uL (0.8-4.8); Lymphocytes % 9.8 %; Mean Corpuscular HGB Conc 30.1 g/dL (30-55); Mean Corpuscular Hemoglobin 30.6 pg (27-33); Mean Corpuscular Volume 101.6 fl (82-101); Mean Platelet Volume 9.5 fL (7.4-10.4); Monocytes # 0.6 10^3/uL (0.2-0.9); Monocytes % 9.6 %; Neutrophils # 4.32 10^3/uL (1.8-7.7); Nucleated Red Blood Cells % 0 %; Platelet Count 197 10^3/cmm (157-399); Red Blood Count 3.04 10^6/uL (3.85-5.65); Red Cell Distribution Width 16.6 % (12.1-15.1); White Blood Count 5.92 10^3/uL (3.29-11.43)
[2025-03-10 05:22] LABS: Anion Gap 10.3 (5-19); Blood Urea Nitrogen 10 mg/dL (8-23); Calcium 8.7 mg/dL (8.5-10.5); Carbon Dioxide 36 mmol/L (22-29); Chloride 95 mmol/L (98-107); Creatinine Clr Calc Pharmacy 127.9444; Glomerular Filtration Rate 111.5 mL/min (90-130); Glucose 139 mg/dL (65-115); Osmolality Calculated 285 mOsm/kg (285-295); Potassium 4.3 mmol/L (3.5-5.1); Sodium 137 mmol/L (136-145)
[2025-03-10] MEDS: aspirin 81 mg EC Tablet PO (09:03)
[2025-03-10] MEDS: sucralfate 1 gm Tablet PO ×2 (09:04→18:15)
[2025-03-10] MEDS: amiodarone 200 mg Tablet 400 MG PO ×2 (09:04→18:15)
[2025-03-10] MEDS: gabapentin 300 mg Capsule PO ×3 (09:04→21:08)
[2025-03-10] MEDS: midodrine 5 mg TABLET PO ×2 (09:04→15:17)
[2025-03-10] MEDS: oxybutynin chloride XL 5 MG TABLET PO (09:04)
[2025-03-10] MEDS: digoxin 125 mcg Tablet PO (09:04)
[2025-03-10] MEDS: cefdinir 300 MG CAPSULE PO ×2 (09:04→18:16)
--- NOTE | 2025-03-10 09:33 | PC.SOCIAL ---
IMM Update pg 2 of IMM Updated and reviewed w/ patients . Copy provided and copy dated, initialed and placed in chart.
--- NOTE | 2025-03-10 09:43 | P.PN_ITS ---
<Statement entered by Lance Feliz M.D - 03/12/25 12:25> Patient was cared for in conjunction with an advanced practice practitioner.? I reviewed the chart and all pertinent data including imaging, telemetry, and laboratory results.? I discussed the patient in detail with the advanced practice practitioner.? Please see?their note for progress note, testing results and agreed upon plan of care for the patient. Subjective 2 Subjective: Patient is doing well today with no complaints. No chest pain or shortness of breath. He is on Xarelto. Hemoglobin and hematocrit stable at 9.3 and 30.9 Vitals/I&O/Wt Last Vital Signs Temp 97.9 F 03/10/25 08:00 Pulse 89 03/10/25 09:04 Resp 28 H 03/10/25 08:00 BP 145/70 03/10/25 08:00 Pulse Ox 100 03/10/25 08:00 O2 Del Method Nasal Cannula 03/10/25 08:00 O2 Flow Rate 3 03/10/25 08:00 03/09/25 03/10/25 03/10/25 22:59 06:59 14:59 Intake Total 120 / 1340 120 / 120 Output Total 1750 / 1750 1900 / 3650 Balance -1630 / -410 -1900 / -2310 120 / 120 Weight last 48 hrs Weight 287 lb 11.252 oz Weight 293 lb 3.437 oz Physical Exam 2 Narrative: General: No apparent distress Muskuloskeletal: Full ROM Respiratory: Normal respiratory effort, clear to auscultation bilaterally throughout all lung toscano, no use of accessory muscles Cardio: No JVD, irregularly irregular rate and rhythm, S1 S2 normal, no murmurs, peripheral pulses 2+ radial palpated bilaterally Extremities: Full ROM, normal, normal capillary refill, no cyanosis or edema Neuro: Alert and oriented x4, no focal motor deficits Psych: Affect normal Skin: No rashes or lesions noted, no wounds Urinary Catheter Management: Orellana Latex: Cath Placed During This Visit: yes Urinary Catheter Date of Insertion: 03/04/25 Urinary Catheter Time of Insertion: 22:31 Data 03/10/25 04:17 03/10/25 04:17 Micro: Microbiology 03/04/25 19:26 Blood Culture - Final Blood NO GROWTH AFTER 5 DAYS 03/04/25 18:53 Blood Culture - Final Blood NO GROWTH AFTER 5 DAYS A&P Assessment and plan (1) Afib: (2) Elevated troponin: (3) Atrial fibrillation with rapid ventricular response: Plan Patient denies any chest pain, overall doing fine from a cardiovascular perspective. Patient has metastatic disease currently stable denies any chest pain stress test negative we will continue to manage medically only. Continue metoprolol 12.5 mg daily. Continue Xarelto for stroke prevention. Monitor for worsening signs or symptoms of anemia or signs of bleeding. Continue amiodarone 400 BIDx1 week, then 400 daily x1 week, then 200 daily from then on. At this time, cardiology will sign off of this patient. As always, if our assistance is needed in the future, please consult us. Thank you for allowing us to take care of this very pleasant patient. PDMP PDMP Reviewed: Not Reviewed Attestations 2 Medical Necessity Statement*: Deferred to primary Coding Level of Care Code Acute Code for [facility] Fwd Diagnoses Longstanding persistent atrial fibrillation I48.11 Atrial fibrillation type: longstanding persistent Elevated troponin R79.89 Atrial fibrillation with rapid ventricular response I48.91
--- NOTE | 2025-03-10 10:51 | P.PN_ITS ---
Subjective 2 Subjective: Patient remains in and out of confusion. No distinct complaints Vitals/I&O/Wt Last Vital Signs Temp 97.9 F 03/10/25 08:00 Pulse 89 03/10/25 09:04 Resp 28 H 03/10/25 08:00 BP 145/70 03/10/25 08:00 Pulse Ox 100 03/10/25 08:00 O2 Del Method Nasal Cannula 03/10/25 08:00 O2 Flow Rate 3 03/10/25 08:00 03/09/25 03/10/25 03/10/25 22:59 06:59 14:59 Intake Total 120 / 1340 120 / 120 Output Total 1750 / 1750 1900 / 3650 Balance -1630 / -410 -1900 / -2310 120 / 120 Weight last 48 hrs Weight 130.5 kg Weight 133 kg Physical Exam 2 Narrative: Alert oriented to self and place. Remained confused but has periods of improved lucidity Heart regular normal S1-S2 without murmurs clicks gallops or rubs Lungs clear to auscultation without wheezes rales or rhonchi anteriorly Extremities no clubbing cyanosis or edema Skin no jaundice Eyes no scleral icterus Urinary Catheter Management: Orellana Latex: Cath Placed During This Visit: yes Urinary Catheter Date of Insertion: 03/04/25 Urinary Catheter Time of Insertion: 22:31 Data 03/10/25 04:17 03/10/25 04:17 Micro: Microbiology 03/04/25 19:26 Blood Culture - Final Blood NO GROWTH AFTER 5 DAYS 03/04/25 18:53 Blood Culture - Final Blood NO GROWTH AFTER 5 DAYS A&P Assessment and plan (1) Sepsis: (2) Hypotension: (3) Elevated troponin: (4) Atrial fibrillation with rapid ventricular response: (5) Acute renal failure: (6) Metastatic colon cancer to liver: Patient is under the care of of at [facility]. Clinic number is [phone]. I spoke with Dr. Tamez this morning. He has been taking care of this patient for a little less than a year. He is receiving palliative chemotherapy every other Saturday. He reports 2 other episodes of hospitalization for C. difficile in the past year. For these episodes patient missed a few chemotherapy appointments. He gave me his personal cell phone to keep him and his staff updated with the patient's condition. His number is [phone]. (7) Hydrops of gallbladder: (8) Septic shock: Plan Septic shock - Source is unclear, did not have abs leukopenia. 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 imaging, no evidence of gallbladder wall thickening, this has been present on prior CT scans - Right Mediport catheter no surrounding erythema - Respiratory viral panel within normal limits Plan - Cultures remain negative, no fevers - On Omnicef to complete a 10-day course Acute kidney injury-max creatinine 1.6 has been normal since the second day of admission Resolved now NSTEMI -nuc med stress test negative Grade 3 of 4 diastolic dysfunction; severely elevated filling pressures A-fib, required amiodarone drip, transition to amiodarone: Continue amiodarone 400 BIDx1 week, then 400 daily x1 week, then 200 daily from then on. Resume Xarelto 10 mg qpm Metastatic colon cancer to the liver-as above Full code Plan for today, Due to the delirium will add Depakote 500 mg every 8 hours. I will move him to the floor we will ask nursing PT and OT to create a is in normal environment as possible. Lights on during the day keep him as alert as possible during the day and having good night sleep. Give him something to do up to chair mobilizes much as possible Ideally patient will go to [facility] facility for a few weeks since the is recovering from knee replacement done yesterday. Unfortunately he does not appear to be participating very well with therapy. The question would be would he go to skilled nursing placement until can take care of him? Also eliminate medications that could be contributing to delirium. * He takes oxycodone on a regular basis at home I did have cut this dose in half and perhaps we will wean off if he is not having significant pain * Stop Protonix as that can affect mentation * Will cut trazodone dose in half to 150 mg. * We might need to get rid of the oxybutynin as that can contribute to mental status changes and * discontinued digoxin PDMP PDMP Reviewed: Not Reviewed Attestations 2 Medical Necessity Statement*: Patient was hospitalized for sepsis. He is now recovering and showing marked improvement. Patient needs to remain for acceptance into [facility] facility due to currently hospitalized for a knee replacement and inability to care for patient who is severely decompensated Coding Level of Care Code Acute Code for [facility] Fwd Diagnoses Sepsis without acute organ dysfunction, due to unspecified organism A41.9 Sepsis acute organ dysfunction status: without acute organ dysfunction Sepsis type: sepsis due to unspecified organism Hypotension, unspecified hypotension type I95.9 Hypotension type: unspecified hypotension type Elevated troponin R79.89 Atrial fibrillation with rapid ventricular response I48.91 Acute renal failure, unspecified acute renal failure type N17.9 Acute renal failure type: unspecified Metastatic colon cancer to liver C18.9; C78.7 Hydrops of gallbladder K82.1 Septic shock A41.9; R65.21
[2025-03-10] MEDS: valproic acid inj 500 MG in sodium chloride 0.9% 50 ML 55 MG IV ×2 (11:25→18:16)
[2025-03-10] MEDS: rivaroxaban 10 mg Tablet 20 MG PO (18:15)
[2025-03-10] MEDS: oxyCODONE 5 mg IR Tab/Cap PO (21:08)
[2025-03-10] MEDS: trazodone 150 mg Tablet PO (21:08)
[2025-03-10] MEDS: trazodone 100 mg Tablet PO (21:08)
[2025-03-11] VITALS (8 sets, daily range): BP systolic 132–161; BP diastolic 80–87; PULSE 80–88; RESP 16–32; TEMP 36.4–37.8; O2SAT 95–100; BMI 33.0
[2025-03-11] MEDS: atorvastatin 40 mg Tablet PO (01:00)
[2025-03-11] MEDS: ondansetron 2 mg/ML SDV 2 mL 4 MG IVP ×2 (01:02→08:04)
[2025-03-11] MEDS: oxyCODONE 5 mg IR Tab/Cap PO ×3 (02:36→13:30)
[2025-03-11] MEDS: valproic acid inj 500 MG in sodium chloride 0.9% 50 ML 55 MG IV ×2 (02:37→12:27)
[2025-03-11 03:58] LABS: Blood Urea Nitrogen 10 mg/dL (8-23); Calcium 9.6 mg/dL (8.5-10.5); Carbon Dioxide 37 mmol/L (22-29); Chloride 93 mmol/L (98-107); Creatinine Clr Calc Pharmacy 126.7292; Glomerular Filtration Rate 133.2 mL/min (90-130); Glucose 122 mg/dL (65-115); Osmolality Calculated 286 mOsm/kg (285-295); Sodium 138 mmol/L (136-145)
[2025-03-11 04:26] LABS: Basophils % 0.4 %; Eosinophils # 0.3 10^3/uL (0.0-0.8); Eosinophils % 5.9 %; Hematocrit 31.2 % (37-53); Lymphocytes # 0.7 10^3/uL (0.8-4.8); Lymphocytes % 13.1 %; Mean Corpuscular HGB Conc 30.1 g/dL (30-55); Mean Corpuscular Volume 99.7 fl (82-101); Mean Platelet Volume 9.6 fL (7.4-10.4); Monocytes # 0.6 10^3/uL (0.2-0.9); Monocytes % 11.4 %; Neutrophils # 3.85 10^3/uL (1.8-7.7); Neutrophils % 68.8 %; Nucleated Red Blood Cells % 0 %; Platelet Count 220 10^3/cmm (157-399); Red Blood Count 3.13 10^6/uL (3.85-5.65); Red Cell Distribution Width 16.7 % (12.1-15.1); White Blood Count 5.59 10^3/uL (3.29-11.43)
--- NOTE | 2025-03-11 07:01 | PC.NURSE ---
Patient had a bradycardic episode going from 80 to 36 and was very symptomatic, nauseous and vomiting. Dr Ann notified no new orders. telemetry strips posted in patient chart.
[2025-03-11] MEDS: cefdinir 300 MG CAPSULE PO (08:05)
[2025-03-11] MEDS: sucralfate 1 gm Tablet PO (08:05)
[2025-03-11] MEDS: aspirin 81 mg EC Tablet PO (08:05)
[2025-03-11] MEDS: gabapentin 300 mg Capsule PO (08:06)
--- NOTE | 2025-03-11 11:37 | P.DS_ITS ---
Discharge Providers Date of Admission: 03/04/25 21:32 Date of Discharge: March 11, 2025 Attending Provider at Admission: Anastacia Grijalva MD Attending Provider at Discharge: Jeronimo Chao DO Consults: Cardiology Primary Care Provider: Al Álvarez MD Diagnoses at Discharge Discharge Diagnosis (1) Sepsis: Status: Resolved Qualifiers: Sepsis acute organ dysfunction status: without acute organ dysfunction Sepsis type: sepsis due to unspecified organism Qualified Code(s): A41.9 - Sepsis, unspecified organism (2) Hypotension: Status: Resolved Qualifiers: Hypotension type: unspecified hypotension type Qualified Code(s): I95.9 - Hypotension, unspecified (3) Elevated troponin: Status: Acute (4) Atrial fibrillation with rapid ventricular response: Status: Acute (5) Acute renal failure: Status: Resolved Qualifiers: Acute renal failure type: unspecified Qualified Code(s): N17.9 - Acute kidney failure, unspecified (6) Metastatic colon cancer to liver: Status: Chronic (7) Hydrops of gallbladder: Status: Chronic (8) Septic shock: Status: Resolved Reason for Visit Reason for Visit: weakness Brief History: Charan Voss is a 70 year old male with a medical history significant for stage IV colon cancer and actively receiving chemo every 2 weeks for palliative chemotherapy at [facility] with Dr. Valdes at [facility]. Patient had had chemo adjusted last week and had become increasingly weak. He had to come to the emergency room to be evaluated because of profound weakness temperature of 102.3 ?F hypotension, hypoxemia. Hospital Course Hospital Course Mr. Voss presented in sepsis he was started on broad-spectrum antibiotics. He has a known history of 2 episodes of C. difficile and was on prophylactic vancomycin daily. GI workup was negative for infection patient was having regular bowel movements. Patient was initially admitted to the ICU for pressors. Extensive workup was done to look for source of sepsis. The respiratory panel GI panel negative blood cultures and urine cultures negative. CT showed hydropic gallbladder no acute disease. CT chest showed nonspecific pleural thickening no acute infection. He was moved out into the unit and because of elevated troponins hospitalist decided on stress test. On 03/08/2025 patient stress test was negative. For patient's atrial fibrillation he was loaded again on amiodarone. At 400 twice daily for 1 week then 200 twice daily for 1 week then 200 from then on. He was already on this at home. After the stress test patient started to get more confused. My assessment was hospital-acquired delirium. I started him on Depakote 500 mg 3 times daily and the following day he was much improved. He did have an episode of bradycardia for a few seconds. And his heart rates been 70s or 80s. I feel like that is related to the loading dose of amiodarone. I made other adjustments when he was confused I stopped digoxin. I lowered his trazodone dose from 300-150. I also stopped Protonix however this may be because of nausea and vomiting episode today. And I also stop oxybutynin for mental status changes. These medications can be reevaluated and restarted as necessary in the long term facility setting He will complete a 14-day course of antibiotics he has been on oral antibiotics with Omnicef for the past 3 days. He has another 7 days scheduled. I also recommending continuing the Depakote until he returns to baseline mental status. It also should be noted that I spoke with . The main [place] office number is [phone]. His personal cell phone is [phone] for updates. He is aware that this coming Saturday chemotherapy is canceled and will be awaiting further updates. I spoke with this morning my concerns with the severity of illness and the patient's ability to return to prior baseline. Dr. Valdes recognizes that patient is hospice appropriate but was hoping to have further conversation when the patient was feeling better. 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 She will p ursue this once patient is improved. Physical Exam Narrative: Alert oriented to self and place. Remained confused but has periods of improved lucidity Heart regular normal S1-S2 without murmurs clicks gallops or rubs Lungs clear to auscultation without wheezes rales or rhonchi anteriorly Extremities no clubbing cyanosis or edema no jaundice Urinary Catheter Management: Orellana Latex: Cath Placed During This Visit: yes Urinary Catheter Date of Insertion: 03/04/25 Urinary Catheter Time of Insertion: 22:31 Discharge Data Studies Completed and Pending Completed Studies During Hospitalization Category Date Time Status CT chest abdomen pelvis [[place] [id number] Cat Scan 03/04/25 19:52 Completed ] Stat CT head wo con* [id number] Stat Cat Scan 03/07/25 22:11 Completed Sestamibi Stress Test Request Routine Exams 03/07/25 14:04 Draft XR chest 1V portable [id number] Stat Exams 03/04/25 18:55 Completed XR chest 1V portable [id number] Stat Exams 03/10/25 00:40 Completed NM jaja perf SPECT r/s* [id number] Routine Nuc Med 03/08/25 14:04 Completed CV. echo complete* [id number] Routine Ultrasound 03/05/25 07:48 Completed US gall bladder [id number] Routine Ultrasound 03/05/25 07:45 Completed Pending at discharge Category Date Time Status Basic Metabolic Panel AM LABS Lab 03/12/25 04:00 Ordered Basic Metabolic Panel AM LABS Lab 03/13/25 04:00 Ordered Radiology Impressions Chest/Abdomen/Pelvis CT 03/04/25 19:52 IMPRESSION: 1. Mild to moderate cardiomegaly. 2. Air in the superior portion of the left brachycephalic vein and to lesser extent the right atrium and right ventricle most consistent with incidental air from intravenous fluids. 3. Mild nonspecific pleural thickening in the posterior portions of the lungs bilaterally. 4. Right Mediport catheter. IMPRESSION: 1. Severe fatty infiltration of the liver. 2. Right lower quadrant colostomy with prominent partial colectomy.. 3. Stable rectosigmoid stump. 4. Continued heterogeneous metastatic disease in the inferior posterior aspect of the right liver which is better visualized on images with contrast. 5. Interval appearance of enlarged 6.5 x 5.0 cm greater than or equal to 5.0 cm transverse diameter gallbladder consistent with gallbladder hydrops. No obvious gallbladder wall thickening. COMMENTS: Consistent with the [employer]'s Incidental Findings Committee white paper (J Am Dg Radiol 2018): Any incidental renal lesion less than 1 cm or classified as too small to characterize, or any incidental cystic renal lesion characterized as simple-appearing, is likely benign. No follow-up imaging is recommended for these lesions per consensus recommendations based on imaging criteria. Gallbladder Ultrasound 03/05/25 07:45 IMPRESSION: 1. Very mild gallbladder hydrops. Small amount of sludge but no stones. No wall thickening. 2. There is a small amount of fluid adjacent to the gallbladder which is probably ascites. There is a small amount of ascites identified in the RIGHT upper quadrant. 3. Patient has known metastatic liver disease. Largest lesion in the RIGHT lobe measures 4.0 x 4.3 x [address] 03/07/25 22:11 IMPRESSION: 1. No acute intracranial findings. 2. Chronic/incidental findings as described above. ADDENDUM: 03/07/25 0048 The findings were verbally communicated via telephone conference with Dr. Mcgowan at 11:26 PM CDT on 03/07/2025. The findings were acknowledged and understood. Chest X-Ray 03/10/25 00:40 IMPRESSION: Cardiomegaly associated findings suggestive of early pulmonary edema. Laboratory Results WBC 5.59 10^3/uL (3.29-11.43) 03/11/25 02:43 RBC 3.13 10^6/uL (3.85-5.65) L 03/11/25 02:43 Hgb 9.40 g/dL (11.27-16.99) L 03/11/25 02:43 Hct 31.2 % (37-53) L 03/11/25 02:43 MCV 99.7 fl (82-101) 03/11/25 02:43 MCH 30.0 pg (27-33) 03/11/25 02:43 MCHC 30.1 g/dL (30-55) 03/11/25 02:43 RDW 16.7 % (12.1-15.1) H 03/11/25 02:43 Plt Count 220 10^3/cmm (157-399) 03/11/25 02:43 MPV 9.6 fL (7.4-10.4) 03/11/25 02:43 Neut % (Auto) 68.8 % 03/11/25 02:43 Lymph % (Auto) 13.1 % 03/11/25 02:43 [place] % (Auto) 11.4 % 03/11/25 02:43 Eos % (Auto) 5.9 % 03/11/25 02:43 Baso % (Auto) 0.4 % 03/11/25 02:43 Neut # (Auto) 3.85 10^3/uL (1.8-7.7) 03/11/25 02:43 Lymph # (Auto) 0.7 10^3/uL (0.8-4.8) L 03/11/25 02:43 [place] # (Auto) 0.6 10^3/uL (0.2-0.9) 03/11/25 02:43 Eos # (Auto) 0.3 10^3/uL (0.0-0.8) 03/11/25 02:43 Baso # (Auto) 0.0 10^3/uL (0.0-0.1) 03/11/25 02:43 Nucleated RBC % (auto) 0 % 03/11/25 02:43 Nucleated RBCs # 0.0 /100WBC 03/11/25 02:43 ESR 65 mm/hr (0-10) H 03/05/25 07:55 APTT 50.7 SECONDS (23.9-36.7) H 03/08/25 11:50 Specimen Type Arterial 03/09/25 13:43 Sample Site Radial, right 03/09/25 13:43 ABG pH 7.38 (7.35-7.45) 03/09/25 13:43 ABG pCO2 59.7 mmHg (35-45) H 03/09/25 13:43 ABG pO2 71.2 mmHg (80.0-100.0) L 03/09/25 13:43 ABG PO2/FiO2 Ratio 254 03/09/25 13:43 ABG HCO3 35.3 mmol/L (22-26) H 03/09/25 13:43 ABG O2 Saturation 95.2 03/09/25 13:43 ABG Base Excess 8.7 mmol/L (-2.0-2.0) H 03/09/25 13:43 Blair Test Pos 03/09/25 13:43 A-a O2 Gradient 7.3 mmHg (5-10) 03/09/25 13:43 Hematocrit 31.6 % (42-52) L 03/09/25 13:43 Hgb O2 Saturation 93.0 % (95-100) L 03/09/25 13:43 Carboxyhemoglobin 2.2 %THgb (0.4-20.1) 03/09/25 13:43 Methemoglobin 0.1 % (0.4-1.5) L 03/09/25 13:43 Total Hemoglobin 10.3 g/dL (14-18) L 03/09/25 13:43 Sodium 140.0 mmol/L (131-143) 03/09/25 13:43 Potassium 4.1 mmol/L (3.5-5.0) 03/09/25 13:43 Glucose 161.0 mg/dL (70-115) H 03/09/25 13:43 Ionized Calcium 1.3 mmol/L (1.1-1.4) 03/09/25 13:43 O2 Delivery Device Nc 03/09/25 13:43 O2 Liters/Min 2.0 % 03/09/25 13:43 FiO2 28.0 % 03/09/25 13:43 Photographer Finish ID glc 03/09/25 13:43 Sodium 138 mmol/L (136-145) 03/11/25 02:43 Potassium 4.0 mmol/L (3.5-5.1) 03/11/25 02:43 Chloride 93 mmol/L (98-107) L 03/11/25 02:43 Carbon Dioxide 37 mmol/L (22-29) H 03/11/25 02:43 Anion Gap 12.0 (5-19) 03/11/25 02:43 BUN 10 mg/dL (8-23) 03/11/25 02:43 Creatinine 0.6 mg/dL (0.7-1.2) L 03/11/25 02:43 GFR Calculation 133.2 mL/min (90-130) H 03/11/25 02:43 Glucose 122 mg/dL (65-115) H 03/11/25 02:43 Estimat Average Glucose 111 03/05/25 07:55 Hemoglobin A1c 5.5 % (4.0-6.0) 03/05/25 07:55 Calculated Osmolality 286 mOsm/kg (285-295) 03/11/25 02:43 Lactic Acid 1.4 mmol/L (0.5-2.2) 03/05/25 07:55 Lactic Acid (Sepsis) 2.3 mmol/L (0.5-2.2) H 03/04/25 21:36 Calcium 9.6 mg/dL (8.5-10.5) 03/11/25 02:43 Iron 29 ug/dL (59-158) L 03/06/25 17:28 TIBC 108 mcg/dl 03/06/25 17:28 % Saturation 26.8 % (20-50) 03/06/25 17:28 Unsat Iron Binding 79 ug/dL (112-347) L 03/06/25 17:28 Ferritin 3102 ng/mL (30-400) H 03/06/25 17:28 Total Bilirubin 0.3 mg/dL (0.15-1.2) 03/08/25 05:03 GGT 47 U/L (8-61) 03/05/25 07:55 AST 12 U/L (0-40) 03/08/25 05:03 ALT 19 U/L (0-41) 03/08/25 05:03 Alkaline Phosphatase 62 U/L (40-130) 03/08/25 05:03 Troponin T 5th Gen ng/L 470 ng/L (0-15) H* 03/05/25 07:55 Troponin T Baseline 158 ng/L (0-15) H* 03/04/25 18:53 Troponin T 120 Minute 209.6 ng/L (0-15) H 03/04/25 20:35 Delta Troponin T 51.6 ABS# (0-10) H* 03/04/25 20:35 Troponin T Hi Sens 6Hr 363.3 ng/L (0-15) H 03/05/25 00:05 Troponin T Hi Sens 6Hr Delta 205.3 ng/L (0-12) H* 03/05/25 00:05 C-Reactive Protein 243.2 mg/L (0.0-4.9) H 03/04/25 18:53 Total Protein 5.1 g/dL (6.6-8.7) L 03/08/25 05:03 Albumin 2.7 g/dL (3.5-5.2) L 03/08/25 05:03 Globulin 2.4 g/dL (1.3-4.6) 03/08/25 05:03 Triglycerides 128 mg/dL (0-150) 03/05/25 07:55 Cholesterol 95 mg/dL (0-200) 03/05/25 07:55 LDL Cholesterol, Calc 37 mg/dL (50-129) L 03/05/25 07:55 HDL Cholesterol 32 mg/dL (60-100) L 03/05/25 07:55 LDL/HDL Ratio 1.16 RATIO (0.00-3.22) 03/05/25 07:55 Cholesterol/HDL Ratio 2.97 mg/dL (1.0-5.00) 03/05/25 07:55 Lipase 8 U/L (13-60) L 03/05/25 07:55 Procalcitonin 1.43 ng/mL (0-0.5) H 03/04/25 18:53 TSH 1.27 uIU/mL (0.27-4.20) 03/05/25 07:55 Urine Color Dark yellow (Yellow) A 03/04/25: Urine Appearance Cloudy (CLEAR) A 03/04/25: Urine pH 5.0 (5-7) 03/04/25 22: Ur Specific [place] 1.023 (1.005-1.030) 03/04/25 22: Urine Protein 1+ (Negative) A 03/04/25: Urine Glucose (UA) Negative (Normal) 03/04/25: Urine Ketones Negative (Negative) 03/04/25: Urine Blood Negative (Negative) 03/04/25: Urine Nitrate Negative (Negative) 03/04/25: Urine Bilirubin 1+ (Negative) H 03/04/25: Urine Urobilinogen 1.0 mg/dL (Negative) 03/04/25 22: Ur Leukocyte Esterase Negative (Negative) 03/04/25 22: Urine RBC 0-2 /hpf (0-2) 03/04/25 22:28 Urine WBC 0-5 /hpf (0-5) 03/04/25 22:28 Ur Squamous Epith Cells 0-5 /hpf (0-5) 03/04/25: Amorphous Sediment Not Reportable 03/04/25 22: Urine Bacteria None seen /hpf (NONE) 03/04/25 22: Hyaline Casts 41.35 /lpf 03/04/25 22:28 Influenza A (PCR) Negative (Negative) 03/04/25 19:36 Influenza Type B (PCR) Negative (Negative) 03/04/25 19:36 RSV (PCR) Negative (Negative) 03/04/25 19:36 SARS-CoV-2 (PCR) Negative (Negative) 03/04/25 19:36 Vitals Last Vital Signs Temp 100.0 F H 03/11/25 07:52 Pulse 88 03/11/25 07:52 Resp 20 H 03/11/25 08:05 BP 149/85 03/11/25 07:52 Pulse Ox 98 03/11/25 08:05 O2 Del Method Room Air 03/11/25 07:52 O2 Flow Rate 3 03/10/25 16:00 Discharge Plan Discharge Patient Disposition: Xfer SNF Condition: Stable Prescriptions: New oxycodone 5 mg Tablet 5 mg PO Q6H PRN (Reason: Severe Pain) Qty: 30 0RF aspirin 81 mg Tablet,Delayed Release (Dr/Ec) 81 mg PO DAILY Qty: 30 0RF cefdinir 300 mg Capsule 300 mg PO BID Qty: 14 0RF amiodarone 200 mg tablet 200 mg PO BID 7 Days Qty: 14 0RF divalproex [Depakote] 500 mg tablet,delayed release (DR/EC) 500 mg PO TID Qty: 30 0RF atorvastatin 40 mg Tablet 40 mg PO BEDTIME Qty: 30 0RF Xarelto 10 mg Tablet 20 mg PO QPM Qty: 30 0RF amiodarone 200 mg tablet 200 mg PO DAILY Qty: 30 0RF Rx Instructions: start after completed 200 mg bid for 7 days Continued resveratrol 250 mg capsule 250 mg PO DAILY saw palmetto 500 mg capsule 500 mg PO DAILY acetaminophen 500 mg Tablet 1,000 mg PO Q6H PRN (Reason: Pain) vancomycin 125 mg capsule 125 mg PO DAILY prochlorperazine maleate 10 mg tablet 10 mg PO Q6H PRN (Reason: Nausea And Vomiting) testosterone 20.25 mg/1.25 gram (1.62 %) gel in metered-dose pump 3 pump topical DAILY clobetasol 0.05 % cream 1 applic TOPICAL BID PRN (Reason: hands) furosemide 20 mg tablet 20 mg PO DAILY PRN (Reason: swelling) Qty: 2 0RF pantoprazole [Protonix] 40 mg tablet,delayed release (DR/EC) 40 mg PO QAM Qty: 60 0RF Rx Instructions: Twice daily for next 2 weeks followed by once daily sucralfate [Carafate] 1 gram tablet 1 g PO BID 28 Days Qty: 56 0RF gabapentin 300 mg capsule 300 mg PO TID digoxin 125 mcg (0.125 mg) tablet 0.125 mg PO DAILY epinephrine 0.3 mg/0.3 mL auto-injector See Rx Instructions .ROUTE .COMPLEX Rx Instructions: INJECT CONTENTS OF 1 PEN NEEDED FOR ALLERGIC REACTION albuterol sulfate 90 mcg/actuation HFA aerosol inhaler 2 puff INHALATION Q4H PRN (Reason: Shortness Of Breath) oxycodone 10 mg tablet 10 mg PO Q6H PRN (Reason: Pain) Changed trazodone 150 mg tablet 150 mg PO BEDTIME Qty: 30 0RF Discontinued midodrine 5 mg Tablet 5 mg PO TID Qty: 90 0RF Rx Instructions: Hold for SBP more than 120 mmhg No Action amiodarone [Pacerone] 200 mg tablet 200 mg PO DAILY Qty: 90 3RF Discharge Orders: Discharge Order (Routine); Ordered 03/11/25 Ordered By: Jeronimo Chao Referrals: Al Álvarez MD [Primary Care Provider, [facility]] - 03/17/25 11:15 am Discharge Diet: Advance as tolerated Discharge Activity: Increase activity as tolerated and As per PT/OT instructions Patient Instructions: Atrial Fibrillation, Sepsis (DC), Hypotension (DC) Discharge Attestations Time Spent in Discharge Care*: greater than 30 min Status at Discharge: Cognitive status at discharge: cognitively intact , Behavioral status at discharge: cooperative , Quality Metrics Clinical Quality Measures [ No reported AMI, CVA or VTE this stay] Coding Level of Care Code Acute Code for [facility] Fwd Diagnoses Sepsis without acute organ dysfunction, due to unspecified organism A41.9 Sepsis acute organ dysfunction status: without acute organ dysfunction Sepsis type: sepsis due to unspecified organism Hypotension, unspecified hypotension type I95.9 Hypotension type: unspecified hypotension type Elevated troponin R79.89 Atrial fibrillation with rapid ventricular response I48.91 Acute renal failure, unspecified acute renal failure type N17.9 Acute renal failure type: unspecified Metastatic colon cancer to liver C18.9; C78.7 Hydrops of gallbladder K82.1 Septic shock A41.9; R65.21
== END 2025-03-11 14:00 | disposition skilled nursing facility (03) | DRG 871 ==
LOC: ER 19:14 → ER IP 21:33 → ICU 22:59 → CSU 03-06 13:24
PROVIDERS: Family Medicine; Internal Medicine; Admitting Provider Internal Medicine; Emergency Provider Emergency Medicine; PCP Family Medicine; Visit Provider Internal Medicine
DX: A41.9 Sepsis, unspecified organism (principal); I21.4 Non-ST elevation (NSTEMI) myocardial infarction; R65.21 Severe sepsis with septic shock; F84.5 Asperger's syndrome; D84.9 Immunodeficiency, unspecified; N17.9 Acute kidney failure, unspecified; C18.9 Malignant neoplasm of colon, unspecified; C78.7 Secondary malignant neoplasm of liver and intrahepatic bile duct; K82.1 Hydrops of gallbladder; I48.11 Longstanding persistent atrial fibrillation; F05 Delirium due to known physiological condition; I51.7 Cardiomegaly; I10 Essential (primary) hypertension; D75.1 Secondary polycythemia; M10.9 Gout, unspecified; E78.5 Hyperlipidemia, unspecified; G47.33 Obstructive sleep apnea (adult) (pediatric); Z87.891 Personal history of nicotine dependence; E86.0 Dehydration; I95.9 Hypotension, unspecified
CPT/HCPCS: 36415; 36591; 36600; 51702; 70450; 71045; 71250; 74176; 76705; 78452; 80048; 80051; 80053; 80061; 81001; 82274; 82330; 82728; 82805; 82977; 83036; 83540; 83550; 83605; 83690; 84145; 84443; 84484; 85014; 85018; 85025; 85651; 85730; 86140; 87040; 87086; 87637; 93005; 93010; 93017; 93306; 94664; 96365; 96375; 96376; 97110; 97163; 97167; 97530; 97535; 99285; 99291; 99292; A9500; J0131; J0283; J1644; J1938; J2020; J2185; J2405; J2470; J2785; J3490; J7030; J9999; Q0164

== ENCOUNTER 2025-04-14 12:26 | Emergency (ER) | payer MEDICARE, SELFPAY ==
--- OUTSIDE RECORDS SUMMARY | 2024-10-27 06:20 | XMS_ITS ---
Author Organization [facility] Address [address] [place] [address] Care Team Providers Care Desk Pen Set Assembler Name Role Phone Kady Floyd Primary Care Provider Bala Wilson Unavailable [phone] KADY FLOYD Unavailable Unavailable Tonya Woodruff Unavailable REASON FOR VISIT 6M F/U W/CBC/ESTRADIOL/CMP/TESTOSTERONE/KUB Encounters Encounter Location Date Provider Diagnosis [facility] [address] [address] 10/27/2024 Tonya Woodruff Plan Of Treatment Next Appt Details Provider Name:Tonya Silverman, 05/05/2025 02:00:00 PM, [address] , [place] [address], [place], [address], Progress Notes * Charan KAMARA TDOB:1955 (70 yo M)Acc No.[id number]:10/27/2024 Progress Notes Patient: Naima herminio Charan Chávez Provider: JIMENA Ramos :1955 A ge:69 Y S ex:Male Date:10/27/2024 Address:[address] [place], [place] [id number] Pcp:Kady Floyd Subjective: * Chief Complaints: * 6 M F/U W/CBC/ESTRADIOL/CMP/TESTOSTERONE/KUB Billing Information: * Procedure Codes: * Electronic signature of JIMENA Romeo on 04/14/2025 at 12:36 PM CDT Sign off status: Pending * Provider: JIMENA Ramos Date: 0 10/27/2024 Generated for Man Ho/Flaquito on: 0 04/14/2025 12:36 PM CDT
[2025-04-14] VITALS (10 sets, daily range): BP systolic 106–142; BP diastolic 64–89; PULSE 80–111; RESP 16; TEMP 36.9–38.2; O2SAT 90–97; BMI 31.6
--- OUTSIDE RECORDS SUMMARY | 2025-04-14 12:36 | XMS_ITS | Encounter Summary ---
Author Organization [employer] Address 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 Gender Identity Not on file Sexual Orientation Not on file documented as of this encounter Plan of Treatment Not on file documented as of this encounter Procedures Procedure Name Priority Date/Time Associated Diagnosis Comments PHOSPHORUS Routine 12/07/2022 3:30 AM RESIDENTIAL PROPERTY CONSULTANT MAGNESIUM LEVEL Routine 12/07/2022 3:30 AM RESIDENTIAL PROPERTY CONSULTANT BASIC METABOLIC PANEL Routine 12/07/2022 3:30 AM RESIDENTIAL PROPERTY CONSULTANT documented in this encounter Results * (ABNORMAL) PHOSPHORUS (12/07/2022 3:30 AM RESIDENTIAL PROPERTY CONSULTANT) PHOSPHORUS 4.7(H) 2.5 - 4.5 mg/dL 12/07/2022 5:41 AM RESIDENTIAL PROPERTY CONSULTANT [facility] Blood Collection / Unknown 12/07/2022 3:30 AM RESIDENTIAL PROPERTY CONSULTANT 12/07/2022 5:10 AM RESIDENTIAL PROPERTY CONSULTANT Low Monique DO CHEMISTRY ORDERABLES Final R esult Performing Organization Address City/[facility]/ZIP Co de Phone Number [facility] CLIA # [id number] [address] [place] [address] * MAGNESIUM LEVEL (12/07/2022 3:30 AM RESIDENTIAL PROPERTY CONSULTANT) MAGNESIUM 1.9 1.6 - 2.4 mg/dL 12/07/2022 5:41 AM [facility] Blood Collection / Unknown 12/07/2022 3:30 AM RESIDENTIAL PROPERTY CONSULTANT 12/07/2022 5:10 AM RESIDENTIAL PROPERTY CONSULTANT Low Amaya DO CHEMISTRY ORDERABLES Final R esult Performing Organization Address City/[facility]/ZIP Co de Phone Number [facility] CLIA # [id number] [address] [place] [address] * (ABNORMAL) BASIC METABOLIC PANEL (12/07/2022 3:30 AM RESIDENTIAL PROPERTY CONSULTANT) SODIUM 137 136 - 145 mmol/L 12/07/2022 5:41 AM [facility] [place] [facility] POTASSIUM 4.2 3.5 - 5.1 mmol/L 12/07/2022 5:41 AM [facility] [place] [facility] CHLORIDE 103 98 - 107 mmol/L 12/07/2022 5:41 AM [facility] [place] [facility] CO2 26 22 - 29 mmol/L 12/07/2022 5:41 AM [facility] CALCIUM 9.5 8.8 - 10.2 mg/dL 12/07/2022 5:41 AM [facility] [place] [facility] BUN 36(H) 8 - 23 mg/dL 12/07/2022 5:41 AM [facility] CREATININE 0.95 0.67 - 1.17 mg/dL 12/07/2022 5:41 AM [facility] GLUCOSE 102(H) 74 - 99 mg/dL 12/07/2022 5:41 AM [facility] GFR >60 >=60 mL/min/1.7 3 sq meter 12/07/2022 5:41 AM [facility] Comment:eGFR calculated with 2020 CKD-EPI equation. Vegetarian diet, extremely high or low muscle mass, and may affect results. Cystatin C with Glomerular Filtration Rate is a suitable alternative for these patients. ANION GAP 8(L) 9 - 20 mmol/L 12/07/2022 5:41 AM [facility] Blood Collection / Unknown 12/07/2022 3:30 AM RESIDENTIAL PROPERTY CONSULTANT 12/07/2022 5:10 AM RESIDENTIAL PROPERTY CONSULTANT Low Amaya DO CHEMISTRY ORDERABLES Final R esult [facility] CLIA # [id number] [address] [place] [id number] documented in this encounter Visit Diagnoses Not on filedocumented in this encounter Additional Health Concerns Infection Onset Date Last Indicated Resolved Time C Diff 11/17/2022 11/17/2022 01/16/2023 1:16 AM CDT documented as of this encounter Care Teams Gas Operator Relationship Specialty Start Date End Date Shant Ballesteros Jr., MD [address] [place] [address] PCP - General Family Practice 01/19/14 documented as of this encounter
--- OUTSIDE RECORDS SUMMARY | 2025-04-14 12:36 | XMS_ITS | Encounter Summary ---
Author Organization [employer] [facility] Address 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 [address] * (ABNORMAL) COMPREHENSIVE METABOLIC PANEL (12/19/2022 4:50 AM CDT) SODIUM 135(L) 136 - 145 mmol/L 12/19/2022 10:48 AM CDT [facility] POTASSIUM 5.3(H) 3.5 - 5.1 mmol/L 12/19/2022 10:48 AM CDT [facility] CHLORIDE 99 98 - 107 mmol/L 12/19/2022 10:48 AM CDT [facility] CO2 25 22 - 29 mmol/L 12/19/2022 10:48 AM CDT [facility] CALCIUM 10.4(H) 8.8 - 10.2 mg/dL 12/19/2022 10:48 AM CDT [facility] BUN 44(H) 8 - 23 mg/dL 12/19/2022 10:48 AM CDT [facility] CREATININE 1.13 0.67 - 1.17 mg/dL 12/19/2022 10:48 AM CDT [facility] GLUCOSE 116(H) 74 - 99 mg/dL 12/19/2022 10:48 AM T [facility] TOTAL PROTEIN 7.5 6.4 - 8.3 g/dL 12/19/2022 10:48 AM CDT [facility] ALBUMIN 3.8 3.5 - 5.2 g/dL 12/19/2022 10:48 AM CDT [facility] BILIRUBIN TOTAL <0.2(L) 0.2 - 1.0 mg/dL 12/19/2022 10:48 AM CDT [facility] ALKALINE PHOSPHATASE 111 40 - 129 U/L 12/19/2022 10:48 AM CDT [facility] AST 27 10 - 50 U/L 12/19/2022 10:48 AM CDT [facility] ALT 38 <=50 U/L 12/19/2022 10:48 AM CDT [facility] GFR >60 >=60 mL/min/1. 73 sq meter 12/19/2022 10:48 AM CDT [facility] Comment:eGFR calculated with 2020 CKD-EPI equation. Vegetarian diet, extremely high or low muscle mass, and may affect results. Cystatin C with Glomerular Filtration Rate is a suitable alternative for these patients. ANION GAP 11 9 - 20 mmol/L 12/19/2022 10:48 AM CDT [facility] Blood Collection / Unknown 12/19/2022 4:50 AM CDT 12/19/2022 10:29 AM CDT Esther Sarmiento MD CHEMISTRY ORDERABLES Final Resul t [facility] CLIA # [id number] [address] [place] [address] documented in this encounter Visit Diagnoses Not on filedocumented in this encounter Additional Health Concerns Infection Onset Date Last Indicated Resolved Time C Diff 11/17/2022 11/17/2022 01/16/2023 1:16 AM CDT documented as of this encounter Care Teams Marble Setter Relationship Specialty Start Date End Date Shant Ballesteros Jr., MD [address] [place] [address] PCP - General Family Practice 01/19/14 documented as of this encounter
--- OUTSIDE RECORDS SUMMARY | 2025-04-14 12:36 | XMS_ITS | Encounter Summary ---
Author Organization [employer] [facility] Address [address] [place] [address] Care Team Providers Care Duck Farmer Name Role Phone Favian Maldonado MD, Shant Humphreys Primary Care Provider Encounter Details Date Type Department Care Team (Late st Contact Info) Description 12/17/2022 Lab Requisition [facility] Laboratory Services [address] [place] [address] Andre Mary, MADHU [address] [facility] [address] [place] [address] Social History Tobacco Use Types Packs/Day Years Used Date Smoking Tobacco: Never Assessed Sex and Gender Information Value Date Recorded Sex Assigned at Not on file 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 Gender Identity Not on file Sexual Orientation Not on file documented as of this encounter Plan of Treatment Not on file documented as of this encounter Procedures Procedure Name Priority Date/Time Associated Diagnosis Comments CBC WITH DIFFERENTIAL Routine 12/17/2022 3:30 AM CDT documented in this encounter Results * (ABNORMAL) CBC WITH DIFFERENTIAL (12/17/2022 3:30 AM CDT) WBC 7.8 4.8 - 10.8 K/uL 12/17/2022 6:20 AM CDT [facility] RBC 3.85(L) 4.60 - 6.20 M/uL 12/17/2022 6:20 AM CDT [facility] HEMOGLOBIN 11.5(L) 14.0 - 18.0 g/dL 12/17/2022 6:20 AM [facility] HEMATOCRIT 36.6(L) 41.0 - 53.0 % 12/17/2022 6:20 AM [facility] MCV 95.1 84.0 - 103.0 fL 12/17/2022 6:20 AM [facility] MCH 29.9 27.0 - 34.0 pg 12/17/2022 6:20 AM [facility] MCHC 31.4 30.0 - 35.0 g/dL 12/17/2022 6:20 AM [facility] RDW 15.6(H) 11.0 - 14.5 % 12/17/2022 6:20 AM [facility] RDW-STDEV 54.4(H) 37.0 - 54.0 fL 12/17/2022 6:20 AM [facility] PLATELETS 282 140 - 440 K/uL 12/17/2022 6:20 AM [facility] MPV 10.7 8.9 - 12.8 fL 12/17/2022 6:20 AM [facility] NEUTROPHILS 58 42 - 75 % 12/17/2022 6:20 AM [facility] LYMPHOCYTES 22(L) 24 - 44 % 12/17/2022 6:20 AM [facility] MONOCYTES 12(H) 2 - 10 % 12/17/2022 6:20 AM [facility] EOSINOPHILS 8(H) 0 - 7 % 12/17/2022 6:20 AM [facility] BASOPHILS 1 0 - 1 % 12/17/2022 6:20 AM [facility] IMMATURE GRANULOCYTES 1 0 - 2 % 12/17/2022 6:20 AM [facility] NEUTROPHIL ABSOLUTE 4.48 2.00 - 8.00 K/uL 12/17/2022 6:20 AM [facility] LYMPHOCYTE ABSOLUTE 1.67 1.20 - 4.00 K/uL 12/17/2022 6:20 AM CDT [facility] MONOCYTE ABSOLUTE 0.90(H) 0.10 - 0.60 K/uL 12/17/2022 6:20 AM CDT [facility] EOSINOPHIL ABSOLUTE 0.61 0.00 - 0.70 K/uL 12/17/2022 6:20 AM CDT [facility] BASOPHILS ABSOLUTE 0.06 0.00 - 0.20 K/uL 12/17/2022 6:20 AM CDT [facility] IMMATURE GRANULOCYTES ABSOLUTE 0.04 0.00 - 0.10 K/uL 12/17/2022 6:20 AM CDT [facility] Blood Collection / Unknown 12/17/2022 3:30 AM CDT 12/17/2022 6:14 AM CDT us Andre Mary HAZARDOUS WASTE REMOVER HEMATOLOGY ORDERABLES Fi nal Result Performing Organization Address City/State/[facility] Co de Phone Number [facility] CLIA # [id number] [facility] [address] documented in this encounter Visit Diagnoses Not on filedocumented in this encounter Additional Health Concerns Infection Onset Date Last Indicated Resolved Time C Diff 11/17/2022 11/17/2022 01/16/2023 1:16 AM CDT documented as of this encounter Care Teams Duck Farmer Relationship Specialty Start Date End Date Shant Ballesteros Jr., MD [address] [place] [address] PCP - General Family Practice 01/19/14 documented as of this encounter
--- OUTSIDE RECORDS SUMMARY | 2025-04-14 12:36 | XMS_ITS | Encounter Summary ---
Author Organization [facility] Address [address] [place] [address] Care Team Providers Care Pattern Lease Inspector Name Role Phone Favian Maldonado MD, Shant Humphreys Primary Care Provider Reason for Referral * Outpatient Services (Routine) - Closed Specialty Diagnoses / Procedures Referred By Delfin jerome Referred To Contact Diagnoses Other nonspecific findings on examination of blood(790.99) Procedures MRI BRAIN W WO CONTRAST Shant Ballesteros Jr., MD [address] [place] [address] Phone: tel: fax: [facility] [place] CALL TO MAKE APPOINTMENT ONLY [address] [place] [address] Phone: tel: fax: Referral ID Status Reason Start Date Expiration Date V isits Requested Visits Authorized [id number] Closed F [facility] TO SCHEDULE ([facility]) 01/18/2014 02/18/2015 1 1 * Outpatient Services (Routine) - Closed Specialty Diagnoses / Procedures Referred By Delfin t Referred To Contact Diagnoses Other nonspecific findings on examination of blood(790.99) Procedures MRA VENOUS HEAD WO CONTRAST Shant Ballesteros Jr., MD [address] [place] [address] Phone: tel: fax: [employer] [facility] [place] CALL TO MAKE APPOINTMENT ONLY [address] [place] [address] Phone: tel: fax: Referral ID Status Reason Start Date Expiration Date V isits Requested Visits Authorized [id number] Closed F MC TO SCHEDULE ([facility]) 01/18/2014 02/18/2015 1 1 Encounter Details Date Type Department Care Team (Late st Contact Info) Description 01/18/2014 Ancillary Orders [facility] Pre-Registration [place] CALL TO MAKE APPOINTMENT ONLY [address] [place] [facility] [place] [address] Shant Ballesteros Jr., MD [address] [place] [address] Other nonspecific findings on examination [...] No significant abnormality. Tripp - uploaded from [employer]- Narrative Procedure Note Philippe Mendiola MD - [...] No significant abnormality. Tripp - uploaded from [employer]- us Shant Ballesteros Jr., MD MR ORDERABLES [...] Impression: Unremarkable exam. CHRIS/nikki - uploaded from [employer] - Narrative Procedure Note Philippe Mendiola MD [...] Impression: Unremarkable exam. MWKleber/nikki - uploaded from [employer] - us Shant Ballesteros Jr., MD MR [...] blood documented in this encounter Care Teams Pattern Lease Inspector Relationship Specialty Start Date End Date Shant Ballesteros Jr., MD [address] [place] [address] PCP - General Family Practice 01/19/14 documented as of this encounter
--- OUTSIDE RECORDS SUMMARY | 2025-04-14 12:36 | XMS_ITS | Encounter Summary ---
Author Organization [employer] Address 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 Gender Identity Not on file Sexual [...] CBC WITH DIFFERENTIAL (12/13/2022 4:30 AM CDT) [facility] WBC 6.0 4.8 - 10.8 K/uL 12/13/2022 5:36 AM CDT [facility] RBC 3.36(L) 4.60 - 6.20 M/uL 12/13/2022 5:36 AM [facility] HEMOGLOBIN 10.3(L) 14.0 - 18.0 g/dL 12/13/2022 5:36 AM [facility] HEMATOCRIT 33.7(L) 41.0 - 53.0 % 12/13/2022 5:36 AM [facility] MCV 100.3 84.0 - 103.0 fL 12/13/2022 5:36 AM [facility] MCH 30.7 27.0 - 34.0 pg 12/13/2022 5:36 AM [facility] MCHC 30.6 30.0 - 35.0 g/dL 12/13/2022 5:36 AM [facility] RDW 15.9(H) 11.0 - 14.5 % 12/13/2022 5:36 AM [facility] RDW-STDEV 58.9(H) 37.0 - 54.0 fL 12/13/2022 5:36 AM [facility] PLATELETS 262 140 - 440 K/uL 12/13/2022 5:36 AM [facility] MPV 10.9 8.9 - 12.8 fL 12/13/2022 5:36 AM [facility] NEUTROPHILS 54 42 - 75 % 12/13/2022 5:36 AM [facility] LYMPHOCYTES 23(L) 24 - 44 % 12/13/2022 5:36 AM [facility] MONOCYTES 14(H) 2 - 10 % 12/13/2022 5:36 AM [facility] EOSINOPHILS 8(H) 0 - 7 % 12/13/2022 5:36 AM [facility] BASOPHILS 1 0 - 1 % 12/13/2022 5:36 AM [facility] IMMATURE GRANULOCYTES 1 0 - 2 % 12/13/2022 5:36 AM [facility] NEUTROPHIL ABSOLUTE 3.23 2.00 - 8.00 K/uL 12/13/2022 5:36 AM [facility] LYMPHOCYTE ABSOLUTE 1.39 1.20 - 4.00 K/uL 12/13/2022 5:36 AM CDT [facility] MONOCYTE ABSOLUTE 0.81(H) 0.10 - 0.60 K/uL 12/13/2022 5:36 AM CDT [facility] EOSINOPHIL ABSOLUTE 0.50 0.00 - 0.70 K/uL 12/13/2022 5:36 AM CDT [facility] BASOPHILS ABSOLUTE 0.04 0.00 - 0.20 K/uL 12/13/2022 5:36 AM CDT [facility] IMMATURE GRANULOCYTES ABSOLUTE 0.03 0.00 - 0.10 K/uL 12/13/2022 5:36 AM CDT [facility] Blood Collection / Unknown 12/13/2022 4:30 AM CDT 12/13/2022 5:28 AM CDT us Esther Sarmiento MD HEMATOLOGY ORDERABLES Final Resu lt [facility] CLIA # [id number] [address] [place] [address] * (ABNORMAL) TESTOSTERONE FREE AND TOTAL (12/13/2022 4:30 AM CDT) [facility] TESTOSTERONE 28(L) 250 - 1100 ng/dL 12/16/2022 11:31 AM CDT [facility] Comment: Men with clinically significant hypogonadal symptoms and testosterone values repeatedly in the range of the 200-300 ng/dL or less, may benefit from testosterone treatment after adequate risk and benefits counseling. For additional information, please refer to https://education.Qapital/faq/JYT239 (This link is being provided for informational/educational purposes only.) (Note) This test was developed and its analytical performance characteristics have been determined by [employer]. It has not been cleared or approved by the FDA. This assay has been validated pursuant to the CLIA regulations and is used for clinical purposes. TESTOSTERONE FREE 4.3(L) 35.0 - 155.0 pg/mL 12/16/2022 11:31 AM CDT [facility] Comment: (Note) This test was developed and its analytical performance characteristics have been determined by [employer]. It has not been cleared or approved by the FDA. This assay has been validated pursuant to the CLIA regulations and is used for clinical purposes. [facility] [address] [place] [address],[address] [place] [id number] Manuel Tirado MD Blood Collection / Unknown 12/13/2022 4:30 AM CDT 12/13/2022 7:43 AM CDT Narrative [facility] - 12/16/2022 11:31 AM CDT Performing Organization Information: Site ID: [id number] Name: [facility] Address: [address] [place] [address], [address] [place] [address] Director: Manuel Tirado MD Esther Sarmiento MD CHEMISTRY ORDERABLES Final Resul t [facility] documented in this encounter Visit Diagnoses Not on filedocumented in this encounter Additional Health Concerns Infection Onset Date Last Indicated Resolved Time C Diff 11/17/2022 11/17/2022 01/16/2023 1:16 AM CDT documented as of this encounter Care Teams Crusher Feeder Relationship Specialty Start Date End Date Shant Ballesteros Jr., MD [address] [place] [address] PCP - General Family Practice 01/19/14 documented as of this encounter
--- OUTSIDE RECORDS SUMMARY | 2025-04-14 12:36 | XMS_ITS | Encounter Summary ---
Author Organization [facility] Address 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 Co de Phone Number [facility] CLIA # [id number] [address] [address] * MAGNESIUM LEVEL (12/09/2022 4:20 AM CDT) MAGNESIUM 2.0 1.6 - 2.4 mg/dL 12/09/2022 6:34 AM CDT [facility] [employer] [facility] Blood Collection / Unknown 12/09/2022 4:20 AM CDT 12/09/2022 6:15 AM CDT Esther Sarmiento MD CHEMISTRY ORDERABLES Final Resul t Performing Organization Address [facility] Co de Phone Number [facility] [employer] [facility] CLIA # [id number] [address] [address] * (ABNORMAL) COMPREHENSIVE METABOLIC PANEL (12/09/2022 4:20 AM CDT) SODIUM 136 136 - 145 mmol/L 12/09/2022 6:34 AM CDT [facility] [employer] [facility] POTASSIUM 4.2 3.5 - 5.1 mmol/L 12/09/2022 6:34 AM CDT [facility] [employer] [facility] CHLORIDE 103 98 - 107 mmol/L 12/09/2022 6:34 AM CDT [employer] [facility] CO2 27 22 - 29 mmol/L 12/09/2022 6:34 AM CDT [facility] [employer] [facility] CALCIUM 9.8 8.8 - 10.2 mg/dL 12/09/2022 6:34 AM CDT [facility] [employer] [facility] BUN 34(H) 8 - 23 mg/dL 12/09/2022 6:34 AM CDT [facility] CREATININE 0.89 0.67 - 1.17 mg/dL 12/09/2022 6:34 AM T [facility] GLUCOSE 136(H) 74 - 99 mg/dL 12/09/2022 6:34 AM T [facility] TOTAL PROTEIN 7.2 6.4 - 8.3 g/dL 12/09/2022 6:[address] [facility] ALBUMIN 3.4(L) 3.5 - 5.2 g/dL 12/09/2022 6:34 AM T [facility] BILIRUBIN TOTAL 0.2 0.2 - 1.0 mg/dL 12/09/2022 6:[address] [facility] ALKALINE PHOSPHATASE 116 40 - 129 U/L 12/09/2022 6:[address] [facility] AST 16 10 - 50 U/L 12/09/2022 6:[address] [facility] ALT 17 <=50 U/L 12/09/2022 6:[address] [facility] GFR >60 >=60 mL/min/1.7 3 sq meter 12/09/2022 6:[address] [facility] Comment:eGFR calculated with 2020 CKD-EPI equation. Vegetarian diet, extremely high or low muscle mass, and may affect results. Cystatin C with Glomerular Filtration Rate is a suitable alternative for these patients. ANION GAP 6(L) 9 - 20 mmol/L 12/09/2022 6:[address] [facility] Blood Collection / Unknown 12/09/2022 4:20 AM CDT 12/09/2022 6:15 AM CDT us Esther Sarmiento MD CHEMISTRY ORDERABLES Final Resul t [facility] CLIA # [id number] [address] [address] documented in this encounter Visit Diagnoses Not on filedocumented in this encounter Additional Health Concerns Infection Onset Date Last Indicated Resolved Time C Diff 11/17/2022 11/17/2022 01/16/2023 1:16 AM CDT documented as of this encounter Care Teams Transfer Engineer Relationship Specialty Start Date End Date Shant Ballesteros Jr., MD [address] [place] [address] PCP - General Family Practice 01/19/14 documented as of this encounter
--- OUTSIDE RECORDS SUMMARY | 2025-04-14 12:36 | XMS_ITS | Encounter Summary ---
Author Organization [employer] Address 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 de Phone Number [facility] CLIA # [id number] [address] [place] [address] * MAGNESIUM LEVEL (12/12/2022 3:15 AM CDT) MAGNESIUM 1.9 1.6 - 2.4 mg/dL 12/12/2022 5:57 AM CDT [facility] Blood Collection / Unknown 12/12/2022 3:15 AM CDT 12/12/2022 5:23 AM CDT Low Amaya CHEMISTRY ORDERABLES Final R esult Performing Organization Address [facility] de Phone Number [facility] CLIA # [id number] [address] [place] [address] * (ABNORMAL) BASIC METABOLIC PANEL (12/12/2022 3:15 AM CDT) SODIUM 135(L) 136 - 145 mmol/L 12/12/2022 5:57 AM CDT [facility] POTASSIUM 4.7 3.5 - 5.1 mmol/L 12/12/2022 5:57 AM CDT [facility] CHLORIDE 101 98 - 107 mmol/L 12/12/2022 5:57 AM CDT [facility] CO2 24 22 - 29 mmol/L 12/12/2022 5:57 AM CDT [facility] CALCIUM 10.0 8.8 - 10.2 mg/dL 12/12/2022 5:57 AM CDT [facility] BUN 42(H) 8 - 23 mg/dL 12/12/2022 5:57 AM CDT [facility] CREATININE 1.00 0.67 - 1.17 mg/dL 12/12/2022 5:57 AM CDT [facility] GLUCOSE 133(H) 74 - 99 mg/dL 12/12/2022 5:57 AM CDT [facility] GFR >60 >=60 mL/min/1.7 3 sq meter 12/12/2022 5:57 AM CDT [facility] Comment:eGFR calculated with 2020 CKD-EPI equation. Vegetarian diet, extremely high or low muscle mass, and may affect results. Cystatin C with Glomerular Filtration Rate is a suitable alternative for these patients. ANION GAP 10 9 - 20 mmol/L 12/12/2022 5:57 AM CDT [facility] Blood Collection / Unknown 12/12/2022 3:15 AM CDT 12/12/2022 5:23 AM CDT Low Amaya DO CHEMISTRY ORDERABLES Final R esult [facility] CLIA # [id number] [facility] [address] documented in this encounter Visit Diagnoses Not on filedocumented in this encounter Additional Health Concerns Infection Onset Date Last Indicated Resolved Time C Diff 11/17/2022 11/17/2022 01/16/2023 1:16 AM CDT documented as of this encounter Care Teams Cutch Cleaner Relationship Specialty Start Date End Date Shant Ballesteros Jr., MD [address] [place] [id number] PCP - General Family Practice 01/19/14 documented as of this encounter
--- OUTSIDE RECORDS SUMMARY | 2025-04-14 12:36 | XMS_ITS | Encounter Summary ---
Author Organization [employer] Address 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 Gender Identity Not on file Sexual Orientation [...] CALCIUM IONIZED (12/10/2022 2:00 AM CDT) Pathologist [facility] CALCIUM IONIZED 5.4 4.7 - 5.5 mg/dL 12/11/2022 2:42 PM CDT [facility] Blood Collection / Unknown 12/10/2022 2:00 AM CDT 12/10/2022 7:02 AM CDT Narrative [facility] - 12/11/2022 2:42 PM CDT Performing Organization Information: Site ID: CT Name: [employer] Address: [address] [place] [address] Director: Andrew Alvarado MD Low Amaya CHEMISTRY ORDERABLES Final R esult Performing Organization Address City/[facility]/ZIP Co de Phone Number [facility] * MAGNESIUM LEVEL (12/10/2022 2:00 AM CDT) [facility] MAGNESIUM 2.0 1.6 - 2.4 mg/dL 12/10/2022 7:[address] [facility] Blood Collection / Unknown 12/10/2022 2:00 AM CDT 12/10/2022 7:02 AM CDT Low Amaya CHEMISTRY ORDERABLES Final R esult Performing Organization Address City/[facility]/ZIP Co de Phone Number [facility] CLIA # [id number] [address] [address] [place] [address] * (ABNORMAL) TRIGLYCERIDE (12/10/2022 2:00 AM CDT) [facility] TRIGLYCERIDE 202(H) <150 mg/dL 12/10/2022 7:[address] [facility] Blood Collection / Unknown 12/10/2022 2:00 AM CDT 12/10/2022 7:[address] [facility] - 12/10/2022 7:38 AM CDT TRIGLYCERIDES mg/dL Normal < 150 Borderline High 150 - 199 High 200 - 499 Very High >= 500 Based on AHA/NCEP Guidelines. Low Amaya DO CHEMISTRY ORDERABLES Final R esult Performing Organization Address City/[facility]/ZIP Co de Phone Number [facility] CLIA # [id number] [address] [id number] * PHOSPHORUS (12/10/2022 2:00 AM CDT) [facility] PHOSPHORUS 3.5 2.5 - 4.5 mg/dL 12/10/2022 7:[address] [facility] Blood Collection / Unknown 12/10/2022 2:00 AM CDT 12/10/2022 7:02 AM CDT Low Amaya DO CHEMISTRY ORDERABLES Final R [facility] Performing Organization Address [facility] Co de Phone Number [facility] CLIA # [id number] [address] [address] * (ABNORMAL) CBC WITH DIFFERENTIAL (12/10/2022 2:00 AM CDT) [facility] WBC 7.0 4.8 - 10.8 K/uL 12/10/2022 7:[address] [facility] RBC 3.23(L) 4.60 - 6.20 M/uL 12/10/2022 7:[address] [facility] HEMOGLOBIN 9.7(L) 14.0 - 18.0 g/dL 12/10/2022 7:[address] [facility] HEMATOCRIT 31.3(L) 41.0 - 53.0 % 12/10/2022 7:10 AM [facility] MCV 96.9 84.0 - 103.0 fL 12/10/2022 7:10 AM [facility] MCH 30.0 27.0 - 34.0 pg 12/10/2022 7:10 AM [facility] MCHC 31.0 30.0 - 35.0 g/dL 12/10/2022 7:10 AM [facility] RDW 16.3(H) 11.0 - 14.5 % 12/10/2022 7:10 AM [facility] RDW-STDEV 58.5(H) 37.0 - 54.0 fL 12/10/2022 7:10 AM [facility] PLATELETS 236 140 - 440 K/uL 12/10/2022 7:10 AM [facility] MPV 11.2 8.9 - 12.8 fL 12/10/2022 7:10 AM [facility] NEUTROPHILS 56 42 - 75 % 12/10/2022 7:10 AM [facility] LYMPHOCYTES 20(L) 24 - 44 % 12/10/2022 7:10 AM [facility] MONOCYTES 14(H) 2 - 10 % 12/10/2022 7:10 AM [facility] EOSINOPHILS 7 0 - 7 % 12/10/2022 7:10 AM [facility] BASOPHILS 1 0 - 1 % 12/10/2022 7:10 AM [facility] IMMATURE GRANULOCYTES 1 0 - 2 % 12/10/2022 7:10 AM [facility] NEUTROPHIL ABSOLUTE 3.94 2.00 - 8.00 K/uL 12/10/2022 7:10 AM [facility] LYMPHOCYTE ABSOLUTE 1.42 1.20 - 4.00 K/uL 12/10/2022 7:10 AM [facility] MONOCYTE ABSOLUTE 1.01(H) 0.10 - 0.60 K/uL 12/10/2022 7:10 AM [facility] EOSINOPHIL ABSOLUTE 0.52 0.00 - 0.70 K/uL 12/10/2022 7:[address] [facility] BASOPHILS ABSOLUTE 0.06 0.00 - 0.20 K/uL 12/10/2022 7:[address] [facility] IMMATURE GRANULOCYTES ABSOLUTE 0.04 0.00 - 0.10 K/uL 12/10/2022 7:[address] [facility] Blood Collection / Unknown 12/10/2022 2:00 AM CDT 12/10/2022 7:02 AM CDT us Low Amaya DO HEMATOLOGY ORDERABLES Final Result [facility] CLIA # [id number] [address] [place] [address] * (ABNORMAL) COMPREHENSIVE METABOLIC PANEL (12/10/2022 2:00 AM CDT) SODIUM 136 136 - 145 mmol/L 12/10/2022 7:38 AM [facility] POTASSIUM 4.4 3.5 - 5.1 mmol/L 12/10/2022 7:38 AM [facility] CHLORIDE 102 98 - 107 mmol/L 12/10/2022 7:38 AM [facility] CO2 26 22 - 29 mmol/L 12/10/2022 7:38 AM [facility] CALCIUM 10.0 8.8 - 10.2 mg/dL 12/10/2022 7:38 AM [facility] BUN 35(H) 8 - 23 mg/dL 12/10/2022 7:38 AM [facility] CREATININE 0.94 0.67 - 1.17 mg/dL 12/10/2022 7:[address] [facility] GLUCOSE 117(H) 74 - 99 mg/dL 12/10/2022 7:38 AM [facility] TOTAL PROTEIN 7.0 6.4 - 8.3 g/dL 12/10/2022 7:[address] [facility] ALBUMIN 3.3(L) 3.5 - 5.2 g/dL 12/10/2022 7:[address] [facility] BILIRUBIN TOTAL 0.2 0.2 - 1.0 mg/dL 12/10/2022 7:[address] [facility] ALKALINE PHOSPHATASE 113 40 - 129 U/L 12/10/2022 7:[address] [facility] AST 17 10 - 50 U/L 12/10/2022 7:[address] [facility] ALT 16 <=50 U/L 12/10/2022 7:[address] [facility] GFR >60 >=60 mL/min/1.7 3 sq meter 12/10/2022 7:38 AM [facility] Comment:eGFR calculated with 2020 CKD-EPI equation. Vegetarian diet, extremely high or low muscle mass, and may affect results. Cystatin C with Glomerular Filtration Rate is a suitable alternative for these patients. ANION GAP 8(L) 9 - 20 mmol/L 12/10/2022 7:[address] [facility] Blood Collection / Unknown 12/10/2022 2:00 AM CDT 12/10/2022 7:02 AM CDT Low Amaya DO CHEMISTRY ORDERABLES Final R esult [facility] CLIA # [id number] [address] [id number] documented in this encounter Visit Diagnoses Not on filedocumented in this encounter Additional Health Concerns Infection Onset Date Last Indicated Resolved Time C Diff 11/17/2022 11/17/2022 01/16/2023 1:16 AM CDT documented as of this encounter Care Teams Study Assistant Relationship Specialty Start Date End Date Shant Ballesteros Jr., MD [address] [place] [address] PCP - General Family Practice 01/19/14 documented as of this encounter
--- OUTSIDE RECORDS SUMMARY | 2025-04-14 12:36 | XMS_ITS | Encounter Summary ---
Author Organization [facility] Address [address] [place] [address] Care Team Providers Care Machine Sign Writer Name Role Phone Favian Maldonado MD, Shant Humphreys Primary Care Provider Encounter Details Date Type Department Care Team (Late st Contact Info) Description 12/05/2022 Lab Requisition [facility] Laboratory Services [address] [place] [address] Low Amaya, DO [address] [place] [phone] Social History Tobacco Use Types Packs/Day Years Used Date Smoking Tobacco: Never Assessed Sex and Gender Information Value Date Recorded Sex Assigned at Not on file Legal 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 WALL TAPER Gender Identity Not on file Sexual Orientation Not on file documented as of this encounter Plan of Treatment Not on file documented as of this encounter Procedures Procedure Name Priority Date/Time Associated Diagnosis Comments PHOSPHORUS Routine 12/05/2022 3:30 AM WALL TAPER MAGNESIUM LEVEL Routine 12/05/2022 3:30 AM WALL TAPER documented in this encounter Results * MAGNESIUM LEVEL (12/05/2022 3:30 AM WALL TAPER) MAGNESIUM 12/05/2022 7:00 AM WALL TAPER [facility] LABORATORY SERVICES [facility] Comment: Contaminated specimen, called to Humble Garcia This is a corrected result. Previous result was 1.7 mg/dL on 12/05/2022 at 0553 WALL TAPER Blood Collection / Unknown 12/05/2022 3:30 AM WALL TAPER 12/05/2022 5:21 AM WALL TAPER Narrative [facility] - 12/05/2022 7:00 AM WALL TAPER To be credited Contaminated specimen Low Finley Monique DO CHEMISTRY ORDERABLES Edited Result - Final Performing Organization Address City/[facility]/ZIP Co de Phone Number [facility] CLIA # [id number] [address] [facility] [place] [address] * PHOSPHORUS (12/05/2022 3:30 AM WALL TAPER) PHOSPHORUS 12/05/2022 7:02 AM WALL TAPER [facility] Comment: Contaminated specimen. To be credited, called to Humble Garcia This is a corrected result. Previous result was 4.6 mg/dL on 12/05/2022 at 0553 [facility] Blood Collection / Unknown 12/05/2022 3:30 AM WALL TAPER 12/05/2022 5:21 AM WALL TAPER Low Finley Monique DO CHEMISTRY ORDERABLES Edited Result - Final Performing Organization Address [facility] Co de Phone Number [facility] CLIA # [id number] [address] [place] [address] documented in this encounter Visit Diagnoses Not on filedocumented in this encounter Additional Health Concerns Infection Onset Date Last Indicated Resolved Time C Diff 11/17/2022 11/17/2022 01/16/2023 1:16 AM CDT documented as of this encounter Care Teams Machine Sign Writer Relationship Specialty Start Date End Date Shant Ballesteros Jr., MD [address] [place] [address] PCP - General Family Practice 01/19/14 documented as of this encounter
--- OUTSIDE RECORDS SUMMARY | 2025-04-14 12:36 | XMS_ITS | Encounter Summary ---
Author Organization [employer] [facility] Address [address] [place] [address] Care Team Providers Care Offset Press Operator Helper Name Role Phone Favian Maldonado MD, Shant Humphreys Primary Care Provider Encounter Details Date Type Department Care Team (Late st Contact Info) Description 12/20/[address] [facility] Laboratory Services [address] [place] [address] Deborah Aguilar MD [address] [place] [address] Social History Tobacco Use Types Packs/Day Years Used Date Smoking Tobacco: Never Assessed Sex and Gender Information Value Date Recorded Sex Assigned at Not on file Legal 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 SKI INSTRUCTOR Gender Identity Not on file Sexual Orientation [...] 136 - 145 mmol/L 12/20/2022 6:20 AM [facility] POTASSIUM 5.4(H) 3.5 - 5.1 mmol/L 12/20/2022 6:20 AM [facility] CHLORIDE 97(L) 98 - 107 mmol/L 12/20/2022 6:20 AM [facility] CO2 26 22 - 29 mmol/L 12/20/2022 6:20 AM [facility] CALCIUM 10.2 8.8 - 10.2 mg/dL 12/20/2022 6:20 AM [facility] BUN 42(H) 8 - 23 mg/dL 12/20/2022 6:20 AM [facility] CREATININE 1.10 0.67 - 1.17 mg/dL 12/20/2022 6:20 AM [facility] GLUCOSE 120(H) 74 - 99 mg/dL 12/20/2022 6:20 AM [facility] TOTAL PROTEIN 7.4 6.4 - 8.3 g/dL 12/20/2022 6:20 AM [facility] ALBUMIN 3.6 3.5 - 5.2 g/dL 12/20/2022 6:20 AM [facility] BILIRUBIN TOTAL 0.2 0.2 - 1.0 mg/dL 12/20/2022 6:20 AM [facility] ALKALINE PHOSPHATASE 103 40 - 129 U/L 12/20/2022 6:20 AM [facility] AST 27 10 - 50 U/L 12/20/2022 6:20 AM [facility] ALT 34 <=50 U/L 12/20/2022 6:20 AM [facility] GFR >60 >=60 mL/min/1.7 3 sq meter 12/20/2022 6:20 AM [facility] Comment:eGFR calculated with 2020 CKD-EPI equation. Vegetarian diet, extremely high or low muscle mass, and may affect results. Cystatin C with Glomerular Filtration Rate is a suitable alternative for these patients. ANION GAP 11 9 - 20 mmol/L 12/20/2022 6:20 AM T [facility] Blood Collection / Unknown 12/20/2022 1:20 AM CDT 12/20/2022 6:05 AM CDT us Deborah Aguilar MD CHEMISTRY ORDERABLES Final Resu lt [facility] CLIA # [id number] [address] [address] [place] [address] * (ABNORMAL) CBC WITH DIFFERENTIAL (12/20/2022 1:20 AM CDT) WBC 7.9 4.8 - 10.8 K/uL 12/20/2022 6:09 AM T [facility] RBC 3.74(L) 4.60 - 6.20 M/uL 12/20/2022 6:09 AM T [facility] HEMOGLOBIN 11.4(L) 14.0 - 18.0 g/dL 12/20/2022 6:09 AM T [facility] HEMATOCRIT 35.9(L) 41.0 - 53.0 % 12/20/2022 6:09 AM [facility] MCV 96.0 84.0 - 103.0 fL 12/20/2022 6:09 AM T [facility] MCH 30.5 27.0 - 34.0 pg 12/20/2022 6:09 AM T [facility] MCHC 31.8 30.0 - 35.0 g/dL 12/20/2022 6:09 AM T [facility] RDW 15.5(H) 11.0 - 14.5 % 12/20/2022 6:09 AM [facility] RDW-STDEV 55.0(H) 37.0 - 54.0 fL 12/20/2022 6:09 AM [facility] PLATELETS 279 140 - 440 K/uL 12/20/2022 6:09 AM T [facility] MPV 10.5 8.9 - 12.8 fL 12/20/2022 6:09 AM T [facility] NEUTROPHILS 54 42 - 75 % 12/20/2022 6:09 AM T [facility] LYMPHOCYTES 22(L) 24 - 44 % 12/20/2022 6:09 AM T [facility] MONOCYTES 13(H) 2 - 10 % 12/20/2022 6:09 AM T [facility] EOSINOPHILS 10(H) 0 - 7 % 12/20/2022 6:09 AM T [facility] BASOPHILS 1 0 - 1 % 12/20/2022 6:09 AM T [facility] IMMATURE GRANULOCYTES 1 0 - 2 % 12/20/2022 6:09 AM [facility] NEUTROPHIL ABSOLUTE 4.27 2.00 - 8.00 K/uL 12/20/2022 6:09 AM T [facility] LYMPHOCYTE ABSOLUTE 1.72 1.20 - 4.00 K/uL 12/20/2022 6:09 AM T [facility] MONOCYTE ABSOLUTE 0.99(H) 0.10 - 0.60 K/uL 12/20/2022 6:09 AM [facility] EOSINOPHIL ABSOLUTE 0.76(H) 0.00 - 0.70 K/uL 12/20/2022 6:09 AM [facility] BASOPHILS ABSOLUTE 0.06 0.00 - 0.20 K/uL 12/20/2022 6:09 AM [facility] IMMATURE GRANULOCYTES ABSOLUTE 0.05 0.00 - 0.10 K/uL 12/20/2022 6:09 AM [facility] Blood Collection / Unknown 12/20/2022 1:20 AM CDT 12/20/2022 6:05 AM CDT us Deborah Aguilar MD HEMATOLOGY ORDERABLES Final Res ult [facility] # [id number] [address] [address] [place] [address] documented in this encounter Visit Diagnoses Not on filedocumented in this encounter Additional Health Concerns Infection Onset Date Last Indicated Resolved Time C Diff 11/17/2022 11/17/2022 01/16/2023 1:16 AM CDT documented as of this encounter Care Teams Offset Press Operator Helper Relationship Specialty Start Date End Date Shant Ballesteros Jr., MD [address] [place] [phone] PCP - General Family Practice 01/19/14 documented as of this encounter
--- OUTSIDE RECORDS SUMMARY | 2025-04-14 12:36 | XMS_ITS | Encounter Summary ---
Author Organization [facility] Address [address] [place] [address] Care Team Providers Care Youth Associate Name Role Phone Favian Maldonado MD, Shant Humphreys Primary Care Provider Encounter Details Date Type Department Care Team (Late st Contact Info) Description 12/06/2022 Lab Requisition [facility] Laboratory Services [address] [place] [address] Deborah Aguilar MD [address] [place] [address] Social History Tobacco Use Types Packs/Day Years Used Date Smoking Tobacco: Never Assessed Sex and Gender Information Value Date Recorded Sex Assigned at Not on file Legal 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 PURIFICATION OPERATOR Gender Identity Not on file Sexual Orientation Not on file documented as of this encounter Plan of Treatment Not on file documented as of this encounter Procedures Procedure Name Priority Date/Time Associated Diagnosis Comments CBC WITH DIFFERENTIAL Routine 12/06/2022 4:50 PM PURIFICATION OPERATOR documented in this encounter Results * (ABNORMAL) CBC WITH DIFFERENTIAL (12/06/2022 4:50 PM PURIFICATION OPERATOR) WBC 7.0 4.8 - 10.8 K/uL 12/06/2022 6:27 PM PURIFICATION OPERATOR [facility] LABORATORY [facility] RBC 3.23(L) 4.60 - 6.20 M/uL 12/06/2022 6:27 PM PURIFICATION OPERATOR [facility] LABORATORY [facility] HEMOGLOBIN 9.6(L) 14.0 - 18.0 g/dL 12/06/2022 6:27 PM [facility] HEMATOCRIT 31.3(L) 41.0 - 53.0 % 12/06/2022 6:27 PM [facility] MCV 96.9 84.0 - 103.0 fL 12/06/2022 6:27 PM [facility] MCH 29.7 27.0 - 34.0 pg 12/06/2022 6:27 PM [facility] MCHC 30.7 30.0 - 35.0 g/dL 12/06/2022 6:27 PM [facility] RDW 16.9(H) 11.0 - 14.5 % 12/06/2022 6:27 PM [facility] RDW-STDEV 60.0(H) 37.0 - 54.0 fL 12/06/2022 6:27 PM [facility] PLATELETS 247 140 - 440 K/uL 12/06/2022 6:27 PM [facility] MPV 10.5 8.9 - 12.8 fL 12/06/2022 6:27 PM [facility] NEUTROPHILS 57 42 - 75 % 12/06/2022 6:27 PM [facility] LYMPHOCYTES 20(L) 24 - 44 % 12/06/2022 6:27 PM [facility] MONOCYTES 11(H) 2 - 10 % 12/06/2022 6:27 PM [facility] EOSINOPHILS 11(H) 0 - 7 % 12/06/2022 6:27 PM [facility] BASOPHILS 1 0 - 1 % 12/06/2022 6:27 PM [facility] IMMATURE GRANULOCYTES 0 0 - 2 % 12/06/2022 6:27 PM [facility] NEUTROPHIL ABSOLUTE 3.99 2.00 - 8.00 K/uL 12/06/2022 6:27 PM [facility] LYMPHOCYTE ABSOLUTE 1.43 1.20 - 4.00 K/uL 12/06/2022 6:27 PM [facility] MONOCYTE ABSOLUTE 0.77(H) 0.10 - 0.60 K/uL 12/06/2022 6:27 PM PURIFICATION OPERATOR [facility] LABORATORY [facility] EOSINOPHIL ABSOLUTE 0.76(H) 0.00 - 0.70 K/uL 12/06/2022 6:27 PM PURIFICATION OPERATOR [facility] BASOPHILS ABSOLUTE 0.04 0.00 - 0.20 K/uL 12/06/2022 6:27 PM PURIFICATION OPERATOR [facility] IMMATURE GRANULOCYTES ABSOLUTE 0.02 0.00 - 0.10 K/uL 12/06/2022 6:27 PM PURIFICATION OPERATOR [facility] Blood Collection / Unknown 12/06/2022 4:50 PM PURIFICATION OPERATOR 12/06/2022 6:16 PM PURIFICATION OPERATOR us Deborah Aguilar MD HEMATOLOGY ORDERABLES Final Res ult [facility] CLIA # [id number] [facility] [address] documented in this encounter Visit Diagnoses Not on filedocumented in this encounter Additional Health Concerns Infection Onset Date Last Indicated Resolved Time C Diff 11/17/2022 11/17/2022 01/16/2023 1:16 AM CDT documented as of this encounter Care Teams Youth Associate Relationship Specialty Start Date End Date Shant Ballesteros Jr., MD [address] [place] [address] PCP - General Family Practice 01/19/14 documented as of this encounter
--- OUTSIDE RECORDS SUMMARY | 2025-04-14 12:37 | XMS_ITS | Encounter Summary ---
Author Organization [email or web address] Address [address] [place] [address] Care Team Providers Care Utility Specialist Name Role Phone Favian Maldonado MD, Shant Humphreys Primary Care Provider Encounter Details Date Type Department Care Team (Late st Contact Info) Description 12/02/2022 Lab Requisition [facility] Laboratory Services [address] [place] [address] Joelle David MD [address] [facility] [address] [place], [place] [id number] Social History Tobacco Use Types Packs/Day Years Used Date Smoking Tobacco: Never Assessed Sex and Gender Information Value Date Recorded Sex Assigned at Not on file Legal 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 DOWNSTREAM BIOMANUFACTURING TECHNICIAN Gender Identity Not on file Sexual Orientation Not on file documented as of this encounter Plan of Treatment Not on file documented as of this encounter Procedures Procedure Name Priority Date/Time Associated Diagnosis Comments C-REACTIVE PROTEIN Routine 12/02/2022 3: 50 AM DOWNSTREAM BIOMANUFACTURING TECHNICIAN documented in this encounter Results * (ABNORMAL) C-REACTIVE PROTEIN (12/02/2022 3:50 AM DOWNSTREAM BIOMANUFACTURING TECHNICIAN) CRP 19.3(H) 0.0 - 5.0 mg/L 12/02/2022 5:27 AM DOWNSTREAM BIOMANUFACTURING TECHNICIAN [facility] LAB[facility]ORY SERVICES [facility] Blood Collection / Unknown 12/02/2022 3:50 AM DOWNSTREAM BIOMANUFACTURING TECHNICIAN 12/02/2022 5:13 AM DOWNSTREAM BIOMANUFACTURING TECHNICIAN Joelle David MD CHEMISTRY ORDERABLES Final Resu lt [facility] # [id number] [address] [facility] [address] [place] [address] documented in this encounter Visit Diagnoses Not on filedocumented in this encounter Additional Health Concerns Infection Onset Date Last Indicated Resolved Time C Diff 11/17/2022 11/17/2022 01/16/2023 1:16 AM CDT documented as of this encounter Care Teams Utility Specialist Relationship Specialty Start Date End Date Shant Ballesteros Jr., MD [address] [place] [address] PCP - General Family Practice 01/19/14 documented as of this encounter
--- OUTSIDE RECORDS SUMMARY | 2025-04-14 12:37 | XMS_ITS | Encounter Summary ---
Author Organization [email or web address] Address [address] [place] [address] Care Team Providers Care Portable Machine Cutter Name Role Phone Favian Maldonado MD, Shant Humphreys Primary Care Provider Encounter Details Date Type Department Care Team (Late st Contact Info) Description 11/28/2022 Lab Requisition [facility] [address] [place] [address] Low Amaya, DO [address] [place] [address] Social History Tobacco Use Types Packs/Day Years Used Date Smoking Tobacco: Never Assessed Sex and Gender Information Value Date Recorded Sex Assigned at Not on file Legal 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 [employer] Gender Identity Not on file Sexual Orientation Not on file documented as of this encounter Plan of Treatment Not on file documented as of this encounter Visit Diagnoses Not on filedocumented in this encounter Additional Health Concerns Infection Onset Date Last Indicated Resolved Time C Diff 11/17/2022 11/17/2022 01/16/2023 1:16 AM CDT documented as of this encounter Care Teams Portable Machine Cutter Relationship Specialty Start Date End Date Shant Ballesteros Jr., MD [address] [place] [address] PCP - General Family Practice 01/19/14 documented as of this encounter
--- OUTSIDE RECORDS SUMMARY | 2025-04-14 12:37 | XMS_ITS | Encounter Summary ---
Author Organization [facility] Address [address] [place] [address] Care Team Providers Care Kiss Mixer Name Role Phone Favian Maldonado MD, Shant Humphreys Primary Care Provider Encounter Details Date Type Department Care Team (Late st Contact Info) Description 11/29/2022 Lab Requisition [facility] Laboratory Services [address] [place] [address] Andre Mary, MADHU [address] [facility] [address] [place] [address] Social History Tobacco Use Types Packs/Day Years Used Date Smoking Tobacco: Never Assessed Sex and Gender Information Value Date Recorded Sex Assigned at Not on file Legal 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 MLT Gender Identity Not on file Sexual Orientation Not on file documented as of this encounter Plan of Treatment Not on file documented as of this encounter Procedures Procedure Name Priority Date/Time Associated Diagnosis Comments CBC WITH DIFFERENTIAL Routine 11/29/2022 4:15 AM MLT documented in this encounter Results * (ABNORMAL) CBC WITH DIFFERENTIAL (11/29/2022 4:15 AM MLT) WBC 6.6 4.8 - 10.8 K/uL 11/29/2022 7:02 AM MLT [facility] RBC 2.98(L) 4.60 - 6.20 M/uL 11/29/2022 7:02 AM MLT [facility] HEMOGLOBIN 9.0(L) 14.0 - 18.0 g/dL 11/29/2022 7:02 AM [facility] HEMATOCRIT 29.9(L) 41.0 - 53.0 % 11/29/2022 7:02 AM [facility] MCV 100.3 84.0 - 103.0 fL 11/29/2022 7:02 AM [facility] MCH 30.2 27.0 - 34.0 pg 11/29/2022 7:02 AM [facility] MCHC 30.1 30.0 - 35.0 g/dL 11/29/2022 7:02 AM [facility] RDW 18.0(H) 11.0 - 14.5 % 11/29/2022 7:02 AM [facility] RDW-STDEV 65.1(H) 37.0 - 54.0 fL 11/29/2022 7:02 AM [facility] PLATELETS 226 140 - 440 K/uL 11/29/2022 7:02 AM [facility] MPV 10.5 8.9 - 12.8 fL 11/29/2022 7:02 AM [facility] NEUTROPHILS 67 42 - 75 % 11/29/2022 7:02 AM [facility] LYMPHOCYTES 13(L) 24 - 44 % 11/29/2022 7:02 AM [facility] MONOCYTES 13(H) 2 - 10 % 11/29/2022 7:02 AM [facility] EOSINOPHILS 6 0 - 7 % 11/29/2022 7:02 AM [facility] BASOPHILS 1 0 - 1 % 11/29/2022 7:02 AM [facility] IMMATURE GRANULOCYTES 1 0 - 2 % 11/29/2022 7:02 AM [facility] NEUTROPHIL ABSOLUTE 4.47 2.00 - 8.00 K/uL 11/29/2022 7:02 AM [facility] LYMPHOCYTE ABSOLUTE 0.88(L) 1.20 - 4.00 K/uL 11/29/2022 7:02 AM [facility] MONOCYTE ABSOLUTE 0.85(H) 0.10 - 0.60 K/uL 11/29/2022 7:02 AM MLT [facility] EOSINOPHIL ABSOLUTE 0.37 0.00 - 0.70 K/uL 11/29/2022 7:02 AM [facility] BASOPHILS ABSOLUTE 0.04 0.00 - 0.20 K/uL 11/29/2022 7:02 AM [facility] IMMATURE GRANULOCYTES ABSOLUTE 0.03 0.00 - 0.10 K/uL 11/29/2022 7:02 AM [facility] Blood Collection / Unknown 11/29/2022 4:15 AM MLT 11/29/2022 6:48 AM MLT us Andre Mary TRANSITIONS MANAGER HEMATOLOGY ORDERABLES Fi nal Result [facility] CLIA # [id number] [address] [place] [address] documented in this encounter Visit Diagnoses Not on filedocumented in this encounter Additional Health Concerns Infection Onset Date Last Indicated Resolved Time C Diff 11/17/2022 11/17/2022 01/16/2023 1:16 AM CDT documented as of this encounter Care Teams Kiss Mixer Relationship Specialty Start Date End Date Shant Ballesteros Jr., MD [address] [place] [address] PCP - General Family Practice 01/19/14 documented as of this encounter
--- OUTSIDE RECORDS SUMMARY | 2025-04-14 12:37 | XMS_ITS | Encounter Summary ---
Author Organization [employer] Address [address] [place] [address] Care Team Providers Care Assistant Federal Public Defender Name Role Phone Favian Maldonado MD, Shant Humphreys Primary Care Provider Encounter Details Date Type Department Care Team (Late st Contact Info) Description 11/26/2022 Lab Requisition [facility] Laboratory Services [address] [place] [address] Low Amaya, DO [address] [place] [address] Social History Tobacco Use Types Packs/Day Years Used Date Smoking Tobacco: Never Assessed Sex and Gender Information Value Date Recorded Sex Assigned at Not on file Legal 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 CARPET WINDER Gender Identity Not on file Sexual Orientation Not on file documented as of this encounter Plan of Treatment Not on file documented as of this encounter Procedures Procedure Name Priority Date/Time Associated Diagnosis Comments CBC WITH DIFFERENTIAL Routine 11/26/2022 1:15 AM CARPET WINDER TRIGLYCERIDE Routine 11/26/2022 1:15 AM CARPET WINDER PHOSPHORUS Routine 11/26/2022 1:15 AM CARPET WINDER MAGNESIUM LEVEL Routine 11/26/2022 1:15 AM CARPET WINDER COMPREHENSIVE METABOLIC PANEL Routine 11/26/2022 1:15 AM CARPET WINDER documented in this encounter Results * (ABNORMAL) TRIGLYCERIDE (11/26/2022 1:15 AM CARPET WINDER) TRIGLYCERIDE 172(H) <150 mg/dL 11/26/2022 6:58 AM [facility] Blood Collection / Unknown 11/26/2022 1:15 AM CARPET WINDER 11/26/2022 6:01 AM CARPET WINDER Narrative [facility] - 11/26/2022 6:58 AM CARPET WINDER TRIGLYCERIDES mg/dL Normal < 150 Borderline High 150 - 199 High 200 - 499 Very High >= 500 Based on AHA/NCEP Guidelines. Low Amaya DO CHEMISTRY ORDERABLES Final R [facility] Performing Organization Address City/[facility]/ZIP Co de Phone Number [facility] CLIA # [id number] [address] [id number] * PHOSPHORUS (11/26/2022 1:15 AM CARPET WINDER) PHOSPHORUS 3.2 2.5 - 4.5 mg/dL 11/26/2022 6:58 AM [facility] Blood Collection / Unknown 11/26/2022 1:15 AM CARPET WINDER 11/26/2022 6:01 AM CARPET WINDER Low Amaya DO CHEMISTRY ORDERABLES Final R esult [facility] CLIA # [id number] [address] [place], [place] [id number] * MAGNESIUM LEVEL (11/26/2022 1:15 AM CARPET WINDER) MAGNESIUM 2.0 1.6 - 2.4 mg/dL 11/26/2022 6:58 AM CARPET WINDER [facility] Blood Collection / Unknown 11/26/2022 1:15 AM CARPET WINDER 11/26/2022 6:01 AM CARPET WINDER us Low Amaya DO CHEMISTRY ORDERABLES Final R esult [facility] CLIA # [id number] [address] [facility] [place] [address] * (ABNORMAL) CBC WITH DIFFERENTIAL (11/26/2022 1:15 AM CARPET WINDER) [facility] WBC 6.1 4.8 - 10.8 K/uL 11/26/2022 6:14 AM [facility] RBC 2.61(L) 4.60 - 6.20 M/uL 11/26/2022 6:14 AM [facility] HEMOGLOBIN 7.8(L) 14.0 - 18.0 g/dL 11/26/2022 6:14 AM [facility] HEMATOCRIT 26.5(L) 41.0 - 53.0 % 11/26/2022 6:14 AM [facility] MCV 101.5 84.0 - 103.0 fL 11/26/2022 6:14 AM [facility] MCH 29.9 27.0 - 34.0 pg 11/26/2022 6:14 AM [facility] MCHC 29.4(L) 30.0 - 35.0 g/dL 11/26/2022 6:14 AM [facility] RDW 18.2(H) 11.0 - 14.5 % 11/26/2022 6:14 AM [facility] RDW-STDEV 66.1(H) 37.0 - 54.0 fL 11/26/2022 6:14 AM [facility] PLATELETS 222 140 - 440 K/uL 11/26/2022 6:14 AM [facility] MPV 10.6 8.9 - 12.8 fL 11/26/2022 6:14 AM [facility] NEUTROPHILS 63 42 - 75 % 11/26/2022 6:14 AM [facility] LYMPHOCYTES 18(L) 24 - 44 % 11/26/2022 6:14 AM [facility] MONOCYTES 13(H) 2 - 10 % 11/26/2022 6:14 AM [facility] EOSINOPHILS 5 0 - 7 % 11/26/2022 6:14 AM [facility] BASOPHILS 1 0 - 1 % 11/26/2022 6:14 AM [facility] IMMATURE GRANULOCYTES 1 0 - 2 % 11/26/2022 6:14 AM [facility] NEUTROPHIL ABSOLUTE 3.84 2.00 - 8.00 K/uL 11/26/2022 6:14 AM [facility] LYMPHOCYTE ABSOLUTE 1.09(L) 1.20 - 4.00 K/uL 11/26/2022 6:14 AM [facility] MONOCYTE ABSOLUTE 0.79(H) 0.10 - 0.60 K/uL 11/26/2022 6:14 AM [facility] EOSINOPHIL ABSOLUTE 0.32 0.00 - 0.70 K/uL 11/26/2022 6:14 AM [facility] BASOPHILS ABSOLUTE 0.04 0.00 - 0.20 K/uL 11/26/2022 6:14 AM [facility] IMMATURE GRANULOCYTES ABSOLUTE 0.03 0.00 - 0.10 K/uL 11/26/2022 6:14 AM [facility] Blood Collection / Unknown 11/26/2022 1:15 AM CARPET WINDER 11/26/2022 6:01 AM [facility] us Low Amaya DO HEMATOLOGY ORDERABLES Final Result [facility] CLIA # [id number] [facility] [address] [place] [address] * (ABNORMAL) COMPREHENSIVE METABOLIC PANEL (11/26/2022 1:15 AM CARPET WINDER) [facility] SODIUM 140 136 - 145 mmol/L 11/26/2022 6:58 AM [facility] POTASSIUM 3.9 3.5 - 5.1 mmol/L 11/26/2022 6:58 AM [facility] CHLORIDE 103 98 - 107 mmol/L 11/26/2022 6:58 AM [facility] CO2 30(H) 22 - 29 mmol/L 11/26/2022 6:58 AM [facility] CALCIUM 9.3 8.8 - 10.2 mg/dL 11/26/2022 6:58 AM [facility] BUN 34(H) 8 - 23 mg/dL 11/26/2022 6:58 AM [facility] CREATININE 1.08 0.67 - 1.17 mg/dL 11/26/2022 6:58 AM [facility] GLUCOSE 129(H) 74 - 99 mg/dL 11/26/2022 6:58 AM [facility] TOTAL PROTEIN 6.4 6.4 - 8.3 g/dL 11/26/2022 6:58 AM [facility] ALBUMIN 2.9(L) 3.5 - 5.2 g/dL 11/26/2022 6:58 AM [facility] BILIRUBIN TOTAL 0.3 0.2 - 1.0 mg/dL 11/26/2022 6:58 AM [facility] ALKALINE PHOSPHATASE 86 40 - 129 U/L 11/26/2022 6:58 AM [facility] AST 14 10 - 50 U/L 11/26/2022 6:58 AM [facility] ALT 10 <=50 U/L 11/26/2022 6:58 AM [facility] GFR >60 >=60 mL/min/1.7 3 sq meter 11/26/2022 6:58 AM [facility] Comment:eGFR calculated with 2020 CKD-EPI equation. Vegetarian diet, extremely high or low muscle mass, and may affect results. Cystatin C with Glomerular Filtration Rate is a suitable alternative for these patients. ANION GAP 7(L) 9 - 20 mmol/L 11/26/2022 6:58 AM CARPET WINDER [facility] Blood Collection / Unknown 11/26/2022 1:15 AM CARPET WINDER 11/26/2022 6:01 AM CARPET WINDER Low Amaya DO CHEMISTRY ORDERABLES Final R esult [facility] CLIA # [id number] [facility] [address] documented in this encounter Visit Diagnoses Not on filedocumented in this encounter Additional Health Concerns Infection Onset Date Last Indicated Resolved Time C Diff 11/17/2022 11/17/2022 01/16/2023 1:16 AM CDT documented as of this encounter Care Teams Assistant Federal Public Defender Relationship Specialty Start Date End Date Shant Ballesteros Jr., MD [address] [place] [address] PCP - General Family Practice 01/19/14 documented as of this encounter
--- OUTSIDE RECORDS SUMMARY | 2025-04-14 12:37 | XMS_ITS | Encounter Summary ---
Author Organization [employer] Address [address] [place] [address] Care Team Providers Care Optometrist President/Practice Owner Name Role Phone Favian Maldonado MD, Shant Humphreys Primary Care Provider Encounter Details Date Type Department Care Team (Late st Contact Info) Description 11/25/2022 Lab Requisition [facility] Laboratory Services [address] [place] [address] Esther Sarmiento MD [address] [place] [address] Social History Tobacco Use Types Packs/Day Years Used Date Smoking Tobacco: Never Assessed Sex and Gender Information Value Date Recorded Sex Assigned at Not on file Legal 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 SPECIALTY MANUFACTURING SUPERVISOR Gender Identity Not on file Sexual Orientation Not on file documented as of this encounter Plan of Treatment Not on file documented as of this encounter Procedures Procedure Name Priority Date/Time Associated Diagnosis Comments BRAIN NATRIURETIC PEPTIDE, BNP OR PROBNP Routine 11/25/2022 1:40 AM SPECIALTY MANUFACTURING SUPERVISOR documented in this encounter Results * (ABNORMAL) BRAIN NATRIURETIC PEPTIDE, BNP OR PROBNP (11/25/2022 1:40 AM SPECIALTY MANUFACTURING SUPERVISOR) PROBNP, N TERMINAL 2,221(H) 0 - 125 pg/mL 11/25/2022 6:17 AM SPECIALTY MANUFACTURING SUPERVISOR [facility] SERVICES [facility] Blood Collection / Unknown 11/25/2022 1:40 AM SPECIALTY MANUFACTURING SUPERVISOR 11/25/2022 6:02 AM SPECIALTY MANUFACTURING SUPERVISOR Esther Sarmiento MD CHEMISTRY ORDERABLES Final Resul t Performing Organization Address City/State/[facility] Co de Phone Number [facility] # [id number] [address] [address] [place] [address] documented in this encounter Visit Diagnoses Not on filedocumented in this encounter Additional Health Concerns Infection Onset Date Last Indicated Resolved Time C Diff 11/17/2022 11/17/2022 01/16/2023 1:16 AM CDT documented as of this encounter Care Teams Optometrist President/Practice Owner Relationship Specialty Start Date End Date Shant Ballesteros Jr., MD [address] [place] [address] PCP - General Family Practice 01/19/14 documented as of this encounter
--- OUTSIDE RECORDS SUMMARY | 2025-04-14 12:37 | XMS_ITS | Encounter Summary ---
Author Organization [employer] [facility] Address [address] [place] [address] Care Team Providers Care Vegetable Grader Name Role Phone Favian Maldonado MD, Shant Humphreys Primary Care Provider Encounter Details Date Type Department Care Team (Late st Contact Info) Description 11/22/2022 Lab Requisition [facility] Laboratory Services [address] [place] [address] Low Amaya, DO [address] [place] [address] Social History Tobacco Use Types Packs/Day Years Used Date Smoking Tobacco: Never Assessed Sex and Gender Information Value Date Recorded Sex Assigned at Not on file Legal 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 MONORAIL CAR OPERATOR Gender Identity Not on file Sexual Orientation Not on file documented as of this encounter Plan of Treatment Not on file documented as of this encounter Procedures Procedure Name Priority Date/Time Associated Diagnosis Comments CBC WITH DIFFERENTIAL Routine 11/22/2022 4:14 AM MONORAIL CAR OPERATOR documented in this encounter Results * (ABNORMAL) CBC WITH DIFFERENTIAL (11/22/2022 4:14 AM MONORAIL CAR OPERATOR) WBC 6.6 4.8 - 10.8 K/uL 11/22/2022 7:49 AM MONORAIL CAR OPERATOR [facility]ATORY [facility] RBC 2.65(L) 4.60 - 6.20 M/uL 11/22/2022 7:49 AM MONORAIL CAR OPERATOR [facility] LABORATORY [facility] HEMOGLOBIN 7.9(L) 14.0 - 18.0 g/dL 11/22/2022 7:49 AM [facility] HEMATOCRIT 26.8(L) 41.0 - 53.0 % 11/22/2022 7:49 AM [facility] MCV 101.1 84.0 - 103.0 fL 11/22/2022 7:49 AM [facility] MCH 29.8 27.0 - 34.0 pg 11/22/2022 7:49 AM [facility] MCHC 29.5(L) 30.0 - 35.0 g/dL 11/22/2022 7:49 AM [facility] RDW 18.6(H) 11.0 - 14.5 % 11/22/2022 7:49 AM [facility] RDW-STDEV 66.0(H) 37.0 - 54.0 fL 11/22/2022 7:49 AM [facility] PLATELETS 298 140 - 440 K/uL 11/22/2022 7:49 AM [facility] MPV 9.8 8.9 - 12.8 fL 11/22/2022 7:49 AM [facility] NEUTROPHILS 67 42 - 75 % 11/22/2022 7:49 AM [facility] LYMPHOCYTES 14(L) 24 - 44 % 11/22/2022 7:49 AM [facility] MONOCYTES 11(H) 2 - 10 % 11/22/2022 7:49 AM [facility] [employer] [facility] EOSINOPHILS 6 0 - 7 % 11/22/2022 7:49 AM [facility] [employer] [facility] BASOPHILS 1 0 - 1 % 11/22/2022 7:49 AM [facility] IMMATURE GRANULOCYTES 1 0 - 2 % 11/22/2022 7:49 AM [facility] NEUTROPHIL ABSOLUTE 4.40 2.00 - 8.00 K/uL 11/22/2022 7:49 AM [facility] LYMPHOCYTE ABSOLUTE 0.92(L) 1.20 - 4.00 K/uL 11/22/2022 7:49 AM [facility] MONOCYTE ABSOLUTE 0.74(H) 0.10 - 0.60 K/uL 11/22/2022 7:49 AM MONORAIL CAR OPERATOR [facility] EOSINOPHIL ABSOLUTE 0.40 0.00 - 0.70 K/uL 11/22/2022 7:49 AM MONORAIL CAR OPERATOR [facility] BASOPHILS ABSOLUTE 0.03 0.00 - 0.20 K/uL 11/22/2022 7:49 AM MONORAIL CAR OPERATOR [facility] IMMATURE GRANULOCYTES ABSOLUTE 0.07 0.00 - 0.10 K/uL 11/22/2022 7:49 AM MONORAIL CAR OPERATOR [facility] Blood Collection / Unknown 11/22/2022 4:14 AM MONORAIL CAR OPERATOR 11/22/2022 7:43 AM MONORAIL CAR OPERATOR Low Amaya DO HEMATOLOGY ORDERABLES Final Result Performing Organization Address City/State/[facility] Co de Phone Number [facility] CLIA # [id number] [facility] [address] documented in this encounter Visit Diagnoses Not on filedocumented in this encounter Additional Health Concerns Infection Onset Date Last Indicated Resolved Time C Diff 11/17/2022 11/17/2022 01/16/2023 1:1 6 AM CDT documented as of this encounter Care Teams Vegetable Grader Relationship Specialty Start Date End Date Shant Ballesteros Jr., MD [address] [place] [address] PCP - General Family Practice 01/19/14 documented as of this encounter
--- OUTSIDE RECORDS SUMMARY | 2025-04-14 12:37 | XMS_ITS | Encounter Summary ---
Author Organization [employer] Address [address] [place] [address] Care Team Providers Care Foreclosure Clerk Name Role Phone Favian Maldonado MD, Shant Humphreys Primary Care Provider Encounter Details Date Type Department Care Team (Late st Contact Info) Description 11/25/2022 Lab Requisition [facility] Laboratory Services [address] [place] [address] Andre Mary, MADHU [address] [facility] [address] [place] [address] Social History Tobacco Use Types Packs/Day Years Used Date Smoking Tobacco: Never Assessed Sex and Gender Information Value Date Recorded Sex Assigned at Not on file Legal 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 POSTMASTER RELIEF Gender Identity Not on file Sexual Orientation Not on file documented as of this encounter Plan of Treatment Not on file documented as of this encounter Procedures Procedure Name Priority Date/Time Associated Diagnosis Comments RESPIRATORY PATHOGEN PCR PANEL Routine 11/25/2022 9:47 AM POSTMASTER RELIEF documented in this encounter Results * RESPIRATORY PATHOGEN PCR PANEL (11/25/2022 9:47 AM POSTMASTER RELIEF) Respiratory Pathogen PCR Panel NOT DETECTED No respiratory pathogen nucleic acids detected. 11/25/2022 11:29 AM POSTMASTER RELIEF [facility] COVID-19 PCR NOT DETECTED Not Detected 11/25/2022 11:29 AM POSTMASTER RELIEF [facility] Upper Respiratory ENTIRE NASOPHARYNX / Unknown Collection / Unknown 11/25/2022 9:47 AM POSTMASTER RELIEF 11/25/2022 10:36 AM POSTMASTER RELIEF Narrative [facility] - 11/25/2022 11:29 AM POSTMASTER RELIEF The Film Array Respiratory Panel (RP2.1) is [...] parapertussis Chlamydophila pneumoniae Mycoplasma pneumoniae Andre Mary CONSTRUCTION GRIP MICROBIOLOGY - GENERAL O RDERABLES Final Result [id number] [address] [place] [address] documented in this encounter Visit Diagnoses Not on filedocumented in this encounter Additional Health Concerns Infection Onset Date Last Indicated Resolved Time C Diff 11/17/2022 11/17/2022 01/16/2023 1:16 AM CDT documented as of this encounter Care Teams Foreclosure Clerk Relationship Specialty Start Date End Date Shant Ballesteros Jr., MD [address] [place] [address] PCP - General Family Practice 01/19/14 documented as of this encounter
--- OUTSIDE RECORDS SUMMARY | 2025-04-14 12:37 | XMS_ITS | Encounter Summary ---
Author Organization [employer] Address [address] [place] [address] Care Team Providers Care Neon Electrician Name Role Phone Favian Maldonado MD, Shant Humphreys Primary Care Provider Encounter Details Date Type Department Care Team (Late st Contact Info) Description 12/05/2022 Lab Requisition [facility] Laboratory Services [address] [place] [address] Low Amaya, DO [address] [place] [phone] Social History Tobacco Use Types Packs/Day Years Used Date Smoking Tobacco: Never Assessed Sex and Gender Information Value Date Recorded Sex Assigned at Not on file Legal 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 AIR BAG STRIPPER Gender Identity Not on file Sexual Orientation Not on file documented as of this encounter Plan of Treatment Not on file documented as of this encounter Procedures Procedure Name Priority Date/Time Associated Diagnosis Comments PHOSPHORUS Routine 12/05/2022 6:30 AM AIR BAG STRIPPER MAGNESIUM LEVEL Routine 12/05/2022 6:30 AM AIR BAG STRIPPER BASIC METABOLIC PANEL Routine 12/05/2022 6:30 AM AIR BAG STRIPPER documented in this encounter Results * MAGNESIUM LEVEL (12/05/2022 6:30 AM AIR BAG STRIPPER) MAGNESIUM 2.0 1.6 - 2.4 mg/dL 12/05/2022 8:[address] [facility] Blood Collection / Unknown 12/05/2022 6:30 AM AIR BAG STRIPPER 12/05/2022 8:18 AM AIR BAG STRIPPER Low Amaya DO CHEMISTRY ORDERABLES Final R esult Performing Organization Address [facility]/ZIP Co de Phone Number [facility] CLIA # [id number] [address] [address] * PHOSPHORUS (12/05/2022 6:30 AM AIR BAG STRIPPER) PHOSPHORUS 4.0 2.5 - 4.5 mg/dL 12/05/2022 8:37 AM [facility] Blood Collection / Unknown 12/05/2022 6:30 AM AIR BAG STRIPPER 12/05/2022 8:18 AM AIR BAG STRIPPER Low Amaya DO CHEMISTRY ORDERABLES Final R esult Performing Organization Address [facility] Co de Phone Number [facility] CLIA # [id number] [address] [address] * (ABNORMAL) BASIC METABOLIC PANEL (12/05/2022 6:30 AM AIR BAG STRIPPER) SODIUM 141 136 - 145 mmol/L 12/05/2022 8:37 AM [facility] POTASSIUM 4.4 3.5 - 5.1 mmol/L 12/05/2022 8:37 AM [facility] CHLORIDE 105 98 - 107 mmol/L 12/05/2022 8:37 AM [facility] CO2 32(H) 22 - 29 mmol/L 12/05/2022 8:37 AM [facility] CALCIUM 10.2 8.8 - 10.2 mg/dL 12/05/2022 8:37 AM [facility] BUN 35(H) 8 - 23 mg/dL 12/05/2022 8:37 AM [facility] CREATININE 0.93 0.67 - 1.17 mg/dL 12/05/2022 8:37 AM [facility] GLUCOSE 116(H) 74 - 99 mg/dL 12/05/2022 8:37 AM [facility] GFR >60 >=60 mL/min/1.7 3 sq meter 12/05/2022 8:37 AM [facility] Comment:eGFR calculated with 2020 CKD-EPI equation. Vegetarian diet, extremely high or low muscle mass, and may affect results. Cystatin C with Glomerular Filtration Rate is a suitable alternative for these patients. ANION GAP 4(L) 9 - 20 mmol/L 12/05/2022 8:37 AM [facility] Blood Collection / Unknown 12/05/2022 6:30 AM AIR BAG STRIPPER 12/05/2022 8:18 AM AIR BAG STRIPPER Low Amaya DO CHEMISTRY ORDERABLES Final R esult [id number] [address] [place] [address] documented in this encounter Visit Diagnoses Not on filedocumented in this encounter Additional Health Concerns Infection Onset Date Last Indicated Resolved Time C Diff 11/17/2022 11/17/2022 01/16/2023 1:16 AM CDT documented as of this encounter Care Teams Neon Electrician Relationship Specialty Start Date End Date Shant Ballesteros Jr., MD [address] [place] [address] PCP - General Family Practice 01/19/14 documented as of this encounter
--- OUTSIDE RECORDS SUMMARY | 2025-04-14 12:37 | XMS_ITS | Encounter Summary ---
Author Organization [employer] Address [address] [place] [address] Care Team Providers Care Hair Dryer Name Role Phone Favian Maldonado MD, Shant Humphreys Primary Care Provider Encounter Details Date Type Department Care Team (Late st Contact Info) Description 11/28/2022 Lab Requisition [facility] Laboratory Services [address] [place] [address] Low Amaya, DO [address] [place] [phone] Social History Tobacco Use Types Packs/Day Years Used Date Smoking Tobacco: Never Assessed Sex and Gender Information Value Date Recorded Sex Assigned at Not on file Legal 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 MOUNTAIN BIKE GUIDE Gender Identity Not on file Sexual Orientation Not on file documented as of this encounter Plan of Treatment Not on file documented as of this encounter Procedures Procedure Name Priority Date/Time Associated Diagnosis Comments PHOSPHORUS Routine 11/28/2022 7:48 AM MOUNTAIN BIKE GUIDE MAGNESIUM LEVEL Routine 11/28/2022 7:48 AM MOUNTAIN BIKE GUIDE COMPREHENSIVE METABOLIC PANEL Routine 11/28/2022 7:48 AM MOUNTAIN BIKE GUIDE documented in this encounter Results * MAGNESIUM LEVEL (11/28/2022 7:48 AM MOUNTAIN BIKE GUIDE) MAGNESIUM 2.0 1.6 - 2.4 mg/dL 11/28/2022 8:53 AM MOUNTAIN BIKE GUIDE [facility] Blood Collection / Unknown 11/28/2022 7:48 AM MOUNTAIN BIKE GUIDE 11/28/2022 8:34 AM MOUNTAIN BIKE GUIDE Low Amaya DO CHEMISTRY ORDERABLES Final R esult Performing Organization Address [facility]/ZIP Co de Phone Number [facility] CLIA # [id number] [address] [address] * PHOSPHORUS (11/28/2022 7:48 AM MOUNTAIN BIKE GUIDE) PHOSPHORUS 3.0 2.5 - 4.5 mg/dL 11/28/2022 8:53 AM [facility] Blood Collection / Unknown 11/28/2022 7:48 AM MOUNTAIN BIKE GUIDE 11/28/2022 8:34 AM MOUNTAIN BIKE GUIDE Low Amaya DO CHEMISTRY ORDERABLES Final R esult Performing Organization Address [facility]/ZIP Co de Phone Number [facility] CLIA # [id number] [address] [address] * (ABNORMAL) COMPREHENSIVE METABOLIC PANEL (11/28/2022 7:48 AM MOUNTAIN BIKE GUIDE) SODIUM 143 136 - 145 mmol/L 11/28/2022 8:53 AM [facility] POTASSIUM 4.0 3.5 - 5.1 mmol/L 11/28/2022 8:53 AM [facility] CHLORIDE 103 98 - 107 mmol/L 11/28/2022 8:53 AM [facility] CO2 33(H) 22 - 29 mmol/L 11/28/2022 8:53 AM [facility] CALCIUM 9.4 8.8 - 10.2 mg/dL 11/28/2022 8:53 AM [facility] BUN 27(H) 8 - 23 mg/dL 11/28/2022 8:53 AM [facility] CREATININE 0.96 0.67 - 1.17 mg/dL 11/28/2022 8:53 AM [facility] GLUCOSE 112(H) 74 - 99 mg/dL 11/28/2022 8:53 AM [facility] TOTAL PROTEIN 7.0 6.4 - 8.3 g/dL 11/28/2022 8:53 AM [facility] ALBUMIN 3.1(L) 3.5 - 5.2 g/dL 11/28/2022 8:53 AM [facility] BILIRUBIN TOTAL 0.3 0.2 - 1.0 mg/dL 11/28/2022 8:53 AM [facility] ALKALINE PHOSPHATASE 97 40 - 129 U/L 11/28/2022 8:53 AM [facility] AST 14 10 - 50 U/L 11/28/2022 8:53 AM [facility] ALT 11 <=50 U/L 11/28/2022 8:53 AM [facility] GFR >60 >=60 mL/min/1.7 3 sq meter 11/28/2022 8:53 AM [facility] Comment:eGFR calculated with 2020 CKD-EPI equation. Vegetarian diet, extremely high or low muscle mass, and may affect results. Cystatin C with Glomerular Filtration Rate is a suitable alternative for these patients. ANION GAP 7(L) 9 - 20 mmol/L 11/28/2022 8:53 AM [facility] Blood Collection / Unknown 11/28/2022 7:48 AM MOUNTAIN BIKE GUIDE 11/28/2022 8:34 AM MOUNTAIN BIKE GUIDE us Low Amaya DO CHEMISTRY ORDERABLES Final R esult [facility] CLIA # [id number] [facility] [address] documented in this encounter Visit Diagnoses Not on filedocumented in this encounter Additional Health Concerns Infection Onset Date Last Indicated Resolved Time C Diff 11/17/2022 11/17/2022 01/16/2023 1:16 AM CDT documented as of this encounter Care Teams Hair Dryer Relationship Specialty Start Date End Date Shant Ballesteros Jr., MD [address] [place] [address] PCP - General Family Practice 01/19/14 documented as of this encounter
--- OUTSIDE RECORDS SUMMARY | 2025-04-14 12:37 | XMS_ITS | Patient Health Record ---
Author Organization [facility] Address [address] [place] [address] Care Team Providers Care Offset Second Press Operator Name Role Phone Kady Floyd Primary Care Provider [phone] Bala Wilson Unavailable [phone] KADY FLOYD Unavailable Unavailable Migration, Provider Unavailable Unavailable Miki Johnston Unavailable [phone] Tonya Woodruff Unavailable Allergies Allergen (clinical drug ingredient) Drug/Non Drug [...] Notes U[place], [place] - [id number] Reviewed date:11/05/2024 02:44:16 PM Interpretation: Performing Lab: Notes/Report: Glucose 0 Bili 0 Ketones 0 Sp Emerson 1.030 Blood 0 pH 5.5 Protein 1+ Urobili 0 Nitrites 0 Leukocytes 0 Reason For Referral No Information Medications Medication SIG (Take, Route, Frequency, Duration) Notes Start Date End Date Status dilTIAZem HCl ER 120 MG Capsule Extended Release 12 Hour 1 capsule Orally Once a day; Duration: 30 day(s) Cardiology Active Multivitamin - Tablet 1 tablet Orally On ce a day Active Testosterone 1.62 % Gel 2 pumps on the s kin Once a day; Duration: 30 days 11/05/2024 Active Xarelto 15 MG Tablet 1 tablet with food Orally Once a day Active Vitamin C 1000 MG Tablet 1 tablet Orally Once a day Active Testosterone 20.25 MG/ACT (1.62%) Gel 3 pumps on the skin daily; Duration: 30 days 11/27/2024 Active Melatonin 5 MG Tablet 1 tablet at bedtim e as needed Orally Once a day Active Ventolin HFA 108 (90 Base) MCG/ACT Aerosol Solution 1 puff as needed Inhalation every 4 hrs Active traZODone HCl 150 MG Tablet 2 tablets Orally Once a day at bedtime; Duration: 90 days Active Lovastatin 40 MG Tablet 1 tablet with th e evening meal Orally Once a day; Duration: 30 days Active Testosterone Cypionate 200 MG/ML Solution 1ml Intramuscular once weekly; Duration: 30 days Active Loratadine 10 MG Tablet 1 tablet Orally Once a day Active Symbicort 160-4.5 MCG/ACT Aerosol 2 puffs Inhalation Twice a day Dr. Morales Active Lisinopril 5 MG Tablet 1 tablet Orally t wice daily; Duration: 90 days 05/22/2021 Active Senokot S 8.6-50 MG Tablet 1 tablet in the evening as needed Orally Once a day Active L-Tryptophan 500 MG Capsule 1 capsule at bedtime Orally Once a day Active Bisoprolol Fumarate 10 mg Tablet TAKE 1 TABLET BY MOUTH EVERY DAY; Duration: 90 Active Montelukast Sodium 10 MG Tablet 1 tablet Orally Once a day; Duration: 30 day(s) 01/18/2022 Active Immunizations Vaccine Route Administration Date Status Comme nts Fluzone HD PF IM Intramuscular 08/04/2020 Administered Influenza (whole), CPT 28984 Inactive Unknown 08/12/2018 Administered Pneumococcal polysaccharide PPV23 IM Intramuscular 08/04/2020 Administered Shingrix IM Intramuscular 08/04/2020 Administered Shingrix Unknown 11/12/2020 Administered Social History Tobacco Use: Social History Observation Description Date Details (start date - stop date) Never Smoker NA - NA Social History Drugs/Alcohol: Social Info Question Answer Notes Alcohol Screen (Audit-C) Did you have a drink containing alcohol in the past year? No Points 0 Interpretation Negative Drugs Have you used drugs other than those for medical reasons in the past 12 months? No Household: Social Info Question Answer Notes Household Marital status: Number of adults in household: 2 Tobacco Use: Social Info Question Answer Notes xTobacco Use/Smoking Are you a nonsmoker Additional Details Category Social Info Options Details Miscellaneous: Marital status: Recently r emarried (first ) Children: 2 adopted childr en : none Level of Education: Finished col [employer] Drugs/Alcohol: Do you smoke marijuana? 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 Problem Calculus of kidney (78646073) Calculus of kidney (N20.0) Active confirmed Problem Nephrolithiasis (83584345) Nephrolithiasis (N20.0) Active confirmed Problem Benign hypertension (93484502) Hypertension, benign (I10) Active confirmed Problem Sleep apnea (62044006) Sleep apnea in adult (G47.30) Active confirmed Problem Gout (76580461) Gout (M10.9) Active confirmed Problem Insomnia (386876060) Insomnia, unspecified type (G47.00) Active confirmed Problem Low libido (2056614) Low libido (R68.82) Active confirmed Problem Fatigue (42534190) Fatigue (R53.83) Active conf irmed Problem Atrial fibrillation (35533253) Atrial fibrillation, unspecified type (I48.91) Active confirmed Problem Seasonal allergy (611794717) Seasonal allergies (J30.2) Active confirmed Problem Hypertension (61095257) Hypertension (I10) Active confirmed Problem Asthma without statu s asthmaticus (28306233) Uncomplicated asthma, unspecified asthma severity, unspecified whether persistent (J45.909) Active confirmed Problem Macrocytosis (48473338) Macrocytosis (D75.89) Active confirmed Problem Obstructive sleep apnea syndrome (55755592) Obstructive sleep apnea (adult) (pediatric) (327.23) 2016 Active confirmed [id number]- Problem Lumbosacral spondylosis without myelopathy (91815626) 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 Active confirmed [id number]- Problem Erectile dysfunction (278029941) Erectile dysfunction (302.72) 2013 Active confirmed [id number]- Problem Adjustment disorder with depressed mood (14475936) Adjustment disorder with depressed mood (309.0) 2009 Problem resolved confirmed [id number]- Problem Hand foot and mouth disease (717518044) Hand, foot, and mouth disease (074.3) 2012 Problem resolved confirmed [id number]- Problem Sebaceous cyst (880812518) Sebaceous cyst (706.2) 2013 Problem resolved confirmed [id number]- Problem Seborrhea (5035602154) Seborrhea (706.3) 2013 Problem resolved confirmed [id number]- Problem Pressure ulcer, other site (707.09) 2017 Problem resolved confirmed [id number]-[id number]- Problem Fever (948786496) Fever, unspeci fied (780.60) 2011 Problem resolved confirmed [id number]- Problem Palpitations (08907461) Palpitations (785.1) 2012 Problem resolved confirmed [facility]on-[id number]- Problem Heartburn (85612917) Heartburn (787.1) 2014 Problem resolved confirmed [facility]on-[id number]- Problem Screening for malignant neoplasm of prostate (055765422) Screening for prostate cancer (V76.44) 2017 Problem resolved confirmed [id number]-[id number]- Problem Spasm (66838556) Muscle spasm (728.85) 2012 Problem resolved confirmed [facility]on-[id number]- Problem Androgen deficiency (81009147) Testosterone deficiency (257.2) 2013 Problem resolved confirmed [facility]on-[id number]- Problem Rash (094877674) Rash (782.1) 2010 Problem resolved confirmed [facility]on-[id number] [id number]- Problem Depression (814635684) Depression (311) 2010 Problem resolved confirmed [facility][id number] [id number]- Problem Dizziness (832988116) Dizziness (780.4) 0 2010 Problem resolved confirmed [facility]on-[id number]- Problem Ventricular tachycardia (01467429) Ventricular tachycardia (427.1) 2007 Problem resolved confirmed [facility]on-[id number]- Problem Hypercholesterolemia (21193043) Hypercholesterolemia (272.0) 2012 Problem resolved confirmed [facility]on-[id number] [id number]- Problem Memory loss (27605704) Memory loss (780.9) 2014 Problem resolved confirmed [facility]on-[id number] [id number]- Problem Secondary polycythemia (39848284) 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) 2017 Problem resolved confirmed [facility]on-[id number] [id number]- Problem Shortness of breath (011467278) Shortness of breath (786.09) 2016 Problem resolved confirmed [facility]-[id number] [id number]- Problem Shoulder pain (52904257) Shoulder pain (719.41) 2013 Problem resolved confirmed [facility]-[id number] [id number]- Problem Disorder of hematopoietic system (43220896) Abnormal findings on blood examination, NEC (790.99) 2013 Problem resolved confirmed [facility]-98 [id number]- Problem Angina (620060569) Angina (413.9) 2010 Problem resolved confirmed [facility]-98 [id number]- Problem 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) 2011 Problem resolved confirmed [facility]on-[id number] [id number]- Problem Disorder of hematopoietic system (05338713) Other abnormal findings on blood examination (790.99) 2015 Problem resolved confirmed [facility]-[id number] [id number]- Problem Disorder of hematopoietic system (87350328) Other abnormal laboratory result on blood (790.99) 2007 Problem resolved confirmed [facility]on-[id number] [id number]- Problem Atypical mole syndrome (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) Atypical mole (238.2) 2008 Problem resolved confirmed [facility]on-[id number] [id number]- Problem Chest pain (49323352) Chest pain (786.51) 2014 Problem resolved confirmed [facility]-98 5911- Problem Depressive disorder (64478577) Depressive disorder not elsewhere classified (311) 2014 Problem resolved confirmed [facility]on-98 5911- Problem Generalized abdomina l pain (576229235) Generalized abdominal pain (789.07) 2008 Problem resolved confirmed [facility]on-98 [id number]- Problem Lab: Used to mat ch unlinked laboratory orders (V92) 2014 Problem resolved confirmed [facility]on-[id number] [id number]- Problem Impaired fasting glycaemia (159473840) Elevated fasting glucose (790.21) 2014 Problem resolved confirmed [facility]on-98 5911- Problem Hemoglobinopathy (44604101) Elevated hematocrit (282.7) 2014 Problem resolved confirmed [facility]-98 5911- Problem Abnormal chest sound s (83486354468089) Egophany (786.7) 2016 Problem resolved confirmed [facility]-98 5911- Problem Insomnia (966135159) Insomnia (307.41) 2012 Problem resolved confirmed [facility]on-98 5911- Problem Pain in limb (32411876) Leg pain (729.5) 2010 Problem resolved confirmed [facility]on-98 5911- Problem Rib pain (263310543) Rib pain (786.50) 2013 Problem resolved confirmed [facility]on-98 5911- Problem General examination of patient (657047821) Annual exam (V70.0) 2007 Problem resolved confirmed [facility]on-98 5911- Problem Staphylococcal infectious disease (70859804) Staph infection (041.19) 2015 Problem resolved confirmed [facility]on-98 5911- Problem Heart disease (59015080) Asymmetrical cardiac hypertrophy (429.9) 2007 Problem resolved confirmed [facility]on-98 5911- Problem Obstructive sleep apnea (32303328) Obstructive sleep apnea (780.57) 2014 Problem resolved confirmed [facility]on-98 5911- Problem Stress (783995726) Stress (300.02) 2008 Problem resolved confirmed [facility]on-98 5911- Problem Acute upper respiratory infection (81560734) Acute upper respiratory infection of multiple sites (465.8) 2018 Problem resolved confirmed [facility]on-98 5911- Problem Congestion (81850529) Congestion (477.9) 2007 Problem resolved confirmed [facility]on-98 5911- Problem Lumbar radiculopathy (408225267) Lumbar radiculopathy (722.10) 2010 Problem resolved confirmed [facility]on-98 5911- Problem Acquired polycythemi a (76844073) Acquired polycythemia (289.0) 2016 Problem resolved confirmed [facility]on-98 5911- Problem Acute sinusitis (43469505) Acute sinusitis (461.8) 2007 Problem resolved confirmed [facility]on-98 5911- Problem Ankle pain (426950354) Ankle pain (719.47) 2013 Problem resolved confirmed [facility]on-98 5911- Problem Heart murmur (75578760) Cardiac murmur (785.2) 2007 Problem resolved confirmed [facility]on-98 5911- Problem Erythrocyte sedimentation rate raised (644380484) Elevated sed rate (ESR) (790.1) 2011 Problem resolved confirmed [facility]on-98 5911- Problem Gynecomastia (3911194) Gynecomastia (611.1) 2015 Problem resolved confirmed [facility]on-98 5911- Problem Thrombosed external hemorrhoids (50251935) Hemorrhoids, external thrombosed (455.4) 2017 Problem resolved confirmed [facility]on-98 5911- Problem Disorder of lipid metabolism (432972470) Low HDL level (272.9) 2010 Problem resolved confirmed [facility]on-98 5911- Problem Left ventricular hypertrophy (65993765) LVH (429.3) 2010 Problem resolved confirmed [facility]on-98 5911- Problem Cellulitis and abscess of lower leg (109772040) Cellulitis of the leg (682.6) 2013 Problem resolved confirmed [facility]on-98 5911- Problem Change in voice (108347962) Change in voice (784.49) 2013 Problem resolved confirmed [facility]98 5911- Problem Acute upper respiratory infection (74371205) Upper respiratory illness (465.8) 2007 Problem resolved confirmed [facility]-98 5911- Problem Kidney stone (69605465) kidney stones (592.0) 2007 Problem resolved confirmed [facility]98 5911- Problem Cramp in lower limb (169011688) Leg cramps (729.82) 2017 Problem resolved confirmed [facility]on-98 5911- Problem Low back pain (296822900) Lower back pain (724.2) 2010 Problem resolved confirmed [facility]on-98 5911- Problem Dry mouth (65562691) Dry mouth (527.7) 2014 Problem resolved confirmed [facility]on-98 5911- Problem Essential hypertension (70273426) Essential hypertension (401.1) 2010 Problem resolved confirmed [facility]on-98 5911- Problem Impacted cerumen (40695078) External cerumen impaction (380.4) 2011 Problem resolved confirmed [facility]on-98 5911- Problem Laceration of foot (207326144) Laceration of foot (892.0) 2011 Problem resolved confirmed [facility]on-98 5911- Problem Pedal edema (844928910) Pedal edema (782.3) 2014 Problem resolved confirmed [facility]on-98 5911- Problem Synovial cyst (945541718) Synovial cyst, NOS (727.40) 2017 Problem resolved confirmed [facility]on-98 5911- Problem Thoracic back pain (266868560) Upper back pain (724.5) 2008 Problem resolved confirmed [facility]on-98 5911- Problem Seborrheic keratosis (209011743) Seborrheic keratosis, other (702.19) 2015 Problem resolved confirmed Ramon-98 5911- Vital Signs Heart Rate 94 /min 11/05/2024 Temperature 97.73 degrees Fahrenheit 11/05/2024 Height-cm 193.04 cm 11/05/2024 Blood pressure diastolic 64 mm Hg 11/05/2024 Weight-kg 130.45 kg 11/05/2024 Height 76.00 in 11/05/2024 Blood pressure systolic 101 mm Hg 11/05/2024 Weight 287.6 lbs 11/05/2024 BMI 35 kg/m2 11/05/2024 Encounters Encounter Location Date Provider Diagnosis [facility] [address] [place] [address] Dr [address] [place] [address] 11/05/2024 Tonya Woodruff Hypertension I10 ; Testicular hypofunction E29.1 ; Nephrolithiasis N20.0 ; Fatigue R53.83 and Low libido R68.82 Migrated_Facility 0 0 07/25/2024 Provider Migration Migrated_Facility 0 0 07/26/2024 Provider Migration [facility] [address] [place] [address] Dr [address] [place] [address] 06/15/2024 Miki Vickie Calculus of kidney N20.0 [facility] [address] [place] [address] 06/19/2024 Miki Vickie Testicular hypofunct ion E29.1 [facility] [address] [place] [address] 07/03/2024 Miki Shinsay Testicular hypofunct ion E29.1 [facility] [address] [place] [address] 07/09/2024 Miki Vickie Testicular hypofunct ion E29.1 [facility] [address] [place] [address] 09/25/2024 Miki Shinsay [facility] [address] [place] [address] 09/25/2024 Miki Johnston [facility] [address] [place] [address] 11/05/2024 Miki Vickie Testicular hypofunct ion E29.1 [facility] [address] [place] [address] 11/27/2024 Tonya Woodruff [facility] [address] [place] [address] 12/11/2024 Tonya Woodruff Assessments Encounter Date Diagnosis [...] lower abdomen and groin. Pain during urination [place], red, or brown urine. Nausea and Vomiting [...] to help pass the stone. Pain Management: Uisn-ldo-sfkfytm pain relievers like ibuprofen or acetaminophen. Medications: [...] Name Order Date CBC w\ Auto Diff [id number] 06/15/2024 CBC w\ Auto Diff 66153 06/19/2024 Comprehensive Metabolic Panel (CMP) 8005 3 06/15/2024 Comprehensive Metabolic Panel (CMP) 8005 3 06/19/2024 Estradiol Level 32601 06/19/2024 Estradiol Level 30922 06/15/2024 Testosterone Total 14215 06/15/2024 Testosterone Total 11704 06/19/2024 Abdomen [id number] 06/15/2024 Future Test Test Name Order Date CBC w\ Auto Diff [id number] 03/30/2025 Comprehensive Metabolic Panel (CMP) 8005 3 03/30/2025 Estradiol Level 93757 03/30/2025 PSA Diagnostic--84592 03/30/2025 Testosterone Total 82312 03/30/2025 Next Appt Details Provider Name:Tonya Silverman, 05/05/2025 02:00:00 PM, [address], [place], [address], Insurance Providers Payer Name Payer Address Payer Phone Subscriber Number Group Number Insured Name Patient Relationship to Insured Coverage Start Date Coverage End Date [employer] [place] [employer] [address] [place] [address] [id number] Charan Smith Self - patient is the insured Medical (General) History Medical History History ICD Code Asymmetrical cardiac hypertrophy Hypertension Hypercholesterolemia Sleep apnea Osteoarthritis Testosterone deficiency Erectile dysfunction Depression OTHER MEDICAL PROVIDERS Commercial Loan Analyst- Dr. Orourke Pain management- Dr. Maldonado Urologist- Dr. Cage Window Trimmer Apprentice - Dr. Bala Juárez Thyroid tumor, benign 09/2020 Electrocution; 02/2020 Asthma CKD New onset of A-fib Surgical History Surgery Date(Month/Year) Fracture of wrist; 2004 Foot; left 2014 L4-L5 Fusion Hospitalization History Reason Date(Month/Year) New onset Afib 11/07/20 Covid 09/2020
--- OUTSIDE RECORDS SUMMARY | 2025-04-14 12:37 | XMS_ITS | Encounter Summary ---
Author Organization [employer] [facility] Address [address] [place] [address] Care Team Providers Care Product Safety Specialist Name Role Phone Favian Maldonado MD, Shant Humphreys Primary Care Provider Encounter Details Date Type Department Care Team (Late st Contact Info) Description 11/24/2022 Lab Requisition [facility] Laboratory Services [address] [place] [address] Andre Mary, MADHU [address] [facility] [address] [place] [address] Social History Tobacco Use Types Packs/Day Years Used Date Smoking Tobacco: Never Assessed Sex and Gender Information Value Date Recorded Sex Assigned at Not on file Legal 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 PLASTER LATHER Gender Identity Not on file Sexual Orientation Not on file documented as of this encounter Plan of Treatment Not on file documented as of this encounter Procedures Procedure Name Priority Date/Time Associated Diagnosis Comments EXTRA TUBE (SST/GOLD) Routine 11/24/2022 7:12 PM PLASTER LATHER LACTIC ACID Stat 11/24/2022 7:12 PM PLASTER LATHER PROCALCITONIN Stat 11/24/2022 6:37 PM PLASTER LATHER CBC WITH DIFFERENTIAL Stat 11/24/2022 6:37 PM PLASTER LATHER BLOOD CULTURE Stat 11/24/2022 6:37 PM PLASTER LATHER BLOOD CULTURE Stat 11/24/2022 6:37 PM PLASTER LATHER COMPREHENSIVE METABOLIC PANEL Stat 11/24/2022 6:37 PM PLASTER LATHER documented in this encounter Results * EXTRA TUBE (SST/GOLD) (11/24/2022 7:12 PM PLASTER LATHER) Blood Collection / Unknown 11/24/2022 7:12 PM PLASTER LATHER 11/24/2022 7:42 PM PLASTER LATHER Andre Mary REFRIGERATED CARGO CLERK CHEMISTRY ORDERABLES Fin al Result Performing Organization Address [facility] Co de Phone Number [facility] CLIA # [id number] [id number] [place] [address] * LACTIC ACID (11/24/2022 7:12 PM PLASTER LATHER) LACTIC ACID 1.0 <=2.0 mmol/L 11/24/2022 7:47 PM PLASTER LATHER [facility] Blood Collection / Unknown 11/24/2022 7:12 PM PLASTER LATHER 11/24/2022 7:25 PM PLASTER LATHER Andre Mary REFRIGERATED CARGO CLERK CHEMISTRY ORDERABLES Fin al Result Performing Organization Address [facility] Co de Phone Number [facility] CLIA # [id number] [id number] [place] [address] * PROCALCITONIN (11/24/2022 6:37 PM PLASTER LATHER) PROCALCITONIN 0.08 <=0.08 ng/mL 11/24/2022 8:08 PM PLASTER LATHER [facility] Blood Collection / Unknown 11/24/2022 6:37 PM PLASTER LATHER 11/24/2022 7:25 PM PLASTER LATHER Narrative [facility] - 11/24/2022 8:08 PM PLASTER LATHER The utility of procalcitonin is limited/NOT recommended [...] ORDERABLES Fin al Result Performing Organization Address [facility]/ZIP Co de Phone Number [facility] CLIA # [id number] [address] [place], [place] [address] * BLOOD CULTURE (11/24/2022 6:37 PM PLASTER LATHER) [facility] Signature BLOOD CULTURE No growth 11/29/2022 10:32 PM PLASTER LATHER [facility] Blood Collection / Unknown 11/24/2022 6:37 PM PLASTER LATHER 11/24/2022 7:25 PM PLASTER LATHER Andre Mary NP MICROBIOLOGY - GENERAL O RDERABLES Final Result Performing Organization Address [facility] Co de Phone Number [facility] CLIA # [id number] [address] [place] [address] * BLOOD CULTURE (11/24/2022 6:37 PM PLASTER LATHER) Pathologist [facility] BLOOD CULTURE No growth 11/29/2022 10:32 PM PLASTER LATHER [facility] Blood Collection / Unknown 11/24/2022 6:37 PM PLASTER LATHER 11/24/2022 7:25 PM PLASTER LATHER Andre Mary NP MICROBIOLOGY - GENERAL O RDERABLES Final Result [facility] CLIA # [id number] [facility] [address] [address] [place] [address] * (ABNORMAL) CBC WITH DIFFERENTIAL (11/24/2022 6:37 PM PLASTER LATHER) [facility] WBC 8.1 4.8 - 10.8 K/uL 11/24/2022 7:42 PM [facility] RBC 2.66(L) 4.60 - 6.20 M/uL 11/24/2022 7:42 PM [facility] HEMOGLOBIN 7.9(L) 14.0 - 18.0 g/dL 11/24/2022 7:42 PM [facility] HEMATOCRIT 27.6(L) 41.0 - 53.0 % 11/24/2022 7:42 PM [facility] MCV 103.8(H) 84.0 - 103.0 fL 11/24/2022 7:42 PM [facility] MCH 29.7 27.0 - 34.0 pg 11/24/2022 7:42 PM [facility] MCHC 28.6(L) 30.0 - 35.0 g/dL 11/24/2022 7:42 PM [facility] RDW 18.6(H) 11.0 - 14.5 % 11/24/2022 7:42 PM [facility] RDW-STDEV 69.4(H) 37.0 - 54.0 fL 11/24/2022 7:42 PM [facility] PLATELETS 248 140 - 440 K/uL 11/24/2022 7:42 PM [facility] MPV 10.3 8.9 - 12.8 fL 11/24/2022 7:42 PM [facility] NEUTROPHILS 73 42 - 75 % 11/24/2022 7:42 PM [facility] LYMPHOCYTES 11(L) 24 - 44 % 11/24/2022 7:42 PM [facility] MONOCYTES 13(H) 2 - 10 % 11/24/2022 7:42 PM [facility] EOSINOPHILS 3 0 - 7 % 11/24/2022 7:42 PM [facility] BASOPHILS 0 0 - 1 % 11/24/2022 7:42 PM [facility] IMMATURE GRANULOCYTES 1 0 - 2 % 11/24/2022 7:42 PM [facility] NEUTROPHIL ABSOLUTE 5.86 2.00 - 8.00 K/uL 11/24/2022 7:42 PM [facility] LYMPHOCYTE ABSOLUTE 0.87(L) 1.20 - 4.00 K/uL 11/24/2022 7:42 PM [facility] MONOCYTE ABSOLUTE 1.02(H) 0.10 - 0.60 K/uL 11/24/2022 7:42 PM [facility] EOSINOPHIL ABSOLUTE 0.21 0.00 - 0.70 K/uL 11/24/2022 7:42 PM [facility] BASOPHILS ABSOLUTE 0.03 0.00 - 0.20 K/uL 11/24/2022 7:42 PM [facility] IMMATURE GRANULOCYTES ABSOLUTE 0.07 0.00 - 0.10 K/uL 11/24/2022 7:42 PM [facility] Blood Collection / Unknown 11/24/2022 6:37 PM PLASTER LATHER 11/24/2022 7:25 PM PLASTER LATHER Andre Mary NP HEMATOLOGY ORDERABLES Fi nal Result [facility] CLIA # [id number] [address] [address] [place] [address] * (ABNORMAL) COMPREHENSIVE METABOLIC PANEL (11/24/2022 6:37 PM [facility]) SODIUM 144 136 - 145 mmol/L 11/24/2022 8:06 PM [facility] POTASSIUM 4.6 3.5 - 5.1 mmol/L 11/24/2022 8:06 PM [facility] CHLORIDE 105 98 - 107 mmol/L 11/24/2022 8:06 PM [facility] CO2 28 22 - 29 mmol/L 11/24/2022 8:06 PM [facility] CALCIUM 9.4 8.8 - 10.2 mg/dL 11/24/2022 8:06 PM [facility] BUN 42(H) 8 - 23 mg/dL 11/24/2022 8:06 PM [facility] CREATININE 1.50(H) 0.67 - 1.17 mg/dL 11/24/2022 8:06 PM [facility] GLUCOSE 102(H) 74 - 99 mg/dL 11/24/2022 8:06 PM [facility] TOTAL PROTEIN 6.5 6.4 - 8.3 g/dL 11/24/2022 8:06 PM [facility] ALBUMIN 2.9(L) 3.5 - 5.2 g/dL 11/24/2022 8:06 PM [facility] BILIRUBIN TOTAL 0.4 0.2 - 1.0 mg/dL 11/24/2022 8:06 PM [facility] ALKALINE PHOSPHATASE 88 40 - 129 U/L 11/24/2022 8:06 PM [facility] AST 12 10 - 50 U/L 11/24/2022 8:06 PM [facility] ALT 9 <=50 U/L 11/24/2022 8:06 PM [facility] GFR 51(L) >=60 mL/min/1. 73 sq meter 11/24/2022 8:06 PM PLASTER LATHER [facility] Comment:eGFR calculated with 2020 CKD-EPI equation. Vegetarian diet, extremely high or low muscle mass, and may affect results. Cystatin C with Glomerular Filtration Rate is a suitable alternative for these patients. ANION GAP 11 9 - 20 mmol/L 11/24/2022 8:06 PM PLASTER LATHER [facility] Blood Collection / Unknown 11/24/2022 6:37 PM PLASTER LATHER 11/24/2022 7:25 PM PLASTER LATHER us Andre Mary REFRIGERATED CARGO CLERK CHEMISTRY ORDERABLES Fin al Result [facility] CLIA # [id number] [facility] [address] documented in this encounter Visit Diagnoses Not on filedocumented in this encounter Additional Health Concerns Infection Onset Date Last Indicated Resolved Time C Diff 11/17/2022 11/17/2022 01/16/2023 1:16 AM CDT documented as of this encounter Care Teams Product Safety Specialist Relationship Specialty Start Date End Date Shant Ballesteros Jr., MD [address] [place] [address] PCP - General Family Practice 01/19/14 documented as of this encounter
--- OUTSIDE RECORDS SUMMARY | 2025-04-14 12:37 | XMS_ITS | Encounter Summary ---
Author Organization [facility] Address [address] [place] [address] Care Team Providers Care Training Representative Name Role Phone Favian Maldonado MD, Shant Humphreys Primary Care Provider Encounter Details Date Type Department Care Team (Late st Contact Info) Description 11/20/2022 Lab Requisition [facility] Laboratory Services [address] [place] [address] Andre Mary, MADHU [address] [facility] [address] [place] [address] Social History Tobacco Use Types Packs/Day Years Used Date Smoking Tobacco: Never Assessed Sex and Gender Information Value Date Recorded Sex Assigned at Not on file Legal 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 PROFESSOR OF LEGAL STUDIES Gender Identity Not on file Sexual Orientation Not on file documented as of this encounter Plan of Treatment Not on file documented as of this encounter Procedures Procedure Name Priority Date/Time Associated Diagnosis Comments CBC WITH DIFFERENTIAL Routine 11/20/2022 3:55 PM PROFESSOR OF LEGAL STUDIES documented in this encounter Results * (ABNORMAL) CBC WITH DIFFERENTIAL (11/20/2022 3:55 PM PROFESSOR OF LEGAL STUDIES) WBC 7.3 4.8 - 10.8 K/uL 11/20/2022 4:35 PM PROFESSOR OF LEGAL STUDIES [facility] RBC 2.66(L) 4.60 - 6.20 M/uL 11/20/2022 4:35 PM PROFESSOR OF LEGAL STUDIES [facility] HEMOGLOBIN 8.0(L) 14.0 - 18.0 g/dL 11/20/2022 4:35 PM [facility] HEMATOCRIT 27.1(L) 41.0 - 53.0 % 11/20/2022 4:35 PM [facility] MCV 101.9 84.0 - 103.0 fL 11/20/2022 4:35 PM [facility] MCH 30.1 27.0 - 34.0 pg 11/20/2022 4:35 PM [facility] MCHC 29.5(L) 30.0 - 35.0 g/dL 11/20/2022 4:35 PM [facility] RDW 17.7(H) 11.0 - 14.5 % 11/20/2022 4:35 PM [facility] RDW-STDEV 62.4(H) 37.0 - 54.0 fL 11/20/2022 4:35 PM [facility] PLATELETS 302 140 - 440 K/uL 11/20/2022 4:35 PM [facility] MPV 9.6 8.9 - 12.8 fL 11/20/2022 4:35 PM [facility] NEUTROPHILS 68 42 - 75 % 11/20/2022 4:35 PM [facility] LYMPHOCYTES 15(L) 24 - 44 % 11/20/2022 4:35 PM [facility] MONOCYTES 12(H) 2 - 10 % 11/20/2022 4:35 PM [facility] EOSINOPHILS 3 0 - 7 % 11/20/2022 4:35 PM [facility] BASOPHILS 0 0 - 1 % 11/20/2022 4:35 PM [facility] IMMATURE GRANULOCYTES 1 0 - 2 % 11/20/2022 4:35 PM [facility] NEUTROPHIL ABSOLUTE 5.00 2.00 - 8.00 K/uL 11/20/2022 4:35 PM [facility] LYMPHOCYTE ABSOLUTE 1.06(L) 1.20 - 4.00 K/uL 11/20/2022 4:35 PM PROFESSOR OF LEGAL STUDIES [facility] MONOCYTE ABSOLUTE 0.91(H) 0.10 - 0.60 K/uL 11/20/2022 4:35 PM PROFESSOR OF LEGAL STUDIES [facility] EOSINOPHIL ABSOLUTE 0.22 0.00 - 0.70 K/uL 11/20/2022 4:35 PM [facility] BASOPHILS ABSOLUTE 0.02 0.00 - 0.20 K/uL 11/20/2022 4:35 PM [facility] IMMATURE GRANULOCYTES ABSOLUTE 0.10 0.00 - 0.10 K/uL 11/20/2022 4:35 PM [facility] Blood Collection / Unknown 11/20/2022 3:55 PM PROFESSOR OF LEGAL STUDIES 11/20/2022 4:30 PM PROFESSOR OF LEGAL STUDIES us Andre Mary CERAMIC ARTIST HEMATOLOGY ORDERABLES Fi nal Result [facility] CLIA # [id number] [facility] [address] documented in this encounter Visit Diagnoses Not on filedocumented in this encounter Additional Health Concerns Infection Onset Date Last Indicated Resolved Time C Diff 11/17/2022 11/17/2022 01/16/2023 1:16 AM CDT documented as of this encounter Care Teams Training Representative Relationship Specialty Start Date End Date Shant Ballesteros Jr., MD [address] [place] [address] PCP - General Family Practice 01/19/14 documented as of this encounter
--- OUTSIDE RECORDS SUMMARY | 2025-04-14 12:37 | XMS_ITS | Encounter Summary ---
Author Organization [facility] Address [address] [place] [address] Care Team Providers Care Conveyor System Operator Name Role Phone Favian Maldonado MD, Shant Humphreys Primary Care Provider Encounter Details Date Type Department Care Team (Late st Contact Info) Description 12/06/2022 Lab Requisition [facility] Laboratory Services [address] [place] [address] Esther Sarmiento MD [address] [place] [address] Social History Tobacco Use Types Packs/Day Years Used Date Smoking Tobacco: Never Assessed Sex and Gender Information Value Date Recorded Sex Assigned at Not on file Legal 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 ROLLER OPERATOR Gender Identity Not on file Sexual Orientation Not on file documented as of this encounter Plan of Treatment Not on file documented as of this encounter Procedures Procedure Name Priority Date/Time Associated Diagnosis Comments EXTRA TUBE (GREEN) Routine 12/06/2022 3:00 AM ROLLER OPERATOR documented in this encounter Results * EXTRA TUBE (GREEN) (12/06/2022 3:00 AM ROLLER OPERATOR) Blood Collection / Unknown 12/06/2022 3:00 AM ROLLER OPERATOR 12/06/2022 7:33 AM ROLLER OPERATOR us Esther Sarmiento MD CHEMISTRY ORDERABLES Final Resul t [facility] CLIA # [id number] [address] [facility] [place] [address] documented in this encounter Visit Diagnoses Not on filedocumented in this encounter Additional Health Concerns Infection Onset Date Last Indicated Resolved Time C Diff 11/17/2022 11/17/2022 01/16/2023 1:16 AM CDT documented as of this encounter Care Teams Conveyor System Operator Relationship Specialty Start Date End Date Shant Ballesteros Jr., MD [address] [place] [address] PCP - General Family Practice 01/19/14 documented as of this encounter
--- OUTSIDE RECORDS SUMMARY | 2025-04-14 12:37 | XMS_ITS | Encounter Summary ---
Author Organization [employer] Address [address] [place] [address] Care Team Providers Care Senior Managing Director Name Role Phone Favian Maldonado MD, Shant Humphreys Primary Care Provider Encounter Details Date Type Department Care Team (Late st Contact Info) Description 11/23/2022 Lab Requisition [facility] Laboratory Services [address] [place] [address] Low Amaya, DO [address] [place] [phone] Social History Tobacco Use Types Packs/Day Years Used Date Smoking Tobacco: Never Assessed Sex and Gender Information Value Date Recorded Sex Assigned at Not on file Legal 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 AUTOMOBILE DRIVERS Gender Identity Not on file Sexual Orientation Not on file documented as of this encounter Plan of Treatment Not on file documented as of this encounter Procedures Procedure Name Priority Date/Time Associated Diagnosis Comments PHOSPHORUS Routine 11/23/2022 4:30 AM AUTOMOBILE DRIVERS MAGNESIUM LEVEL Routine 11/23/2022 4:30 AM AUTOMOBILE DRIVERS BASIC METABOLIC PANEL Routine 11/23/2022 4:30 AM AUTOMOBILE DRIVERS documented in this encounter Results * PHOSPHORUS (11/23/2022 4:30 AM AUTOMOBILE DRIVERS) PHOSPHORUS 4.1 2.5 - 4.5 mg/dL 11/23/2022 6:08 AM AUTOMOBILE DRIVERS [facility] Blood Collection / Unknown 11/23/2022 4:30 AM AUTOMOBILE DRIVERS 11/23/2022 5:49 AM AUTOMOBILE DRIVERS Low Amaya DO CHEMISTRY ORDERABLES Final R [facility] Performing Organization Address [facility]/ZIP Co de Phone Number [facility] CLIA # [id number] [address] [facility] [place] [address] * MAGNESIUM LEVEL (11/23/2022 4:30 AM AUTOMOBILE DRIVERS) MAGNESIUM 1.9 1.6 - 2.4 mg/dL 11/23/2022 6:08 AM [facility] Blood Collection / Unknown 11/23/2022 4:30 AM AUTOMOBILE DRIVERS 11/23/2022 5:49 AM AUTOMOBILE DRIVERS Low Amaya DO CHEMISTRY ORDERABLES Final R esult Performing Organization Address [facility] Co de Phone Number [facility] CLIA # [id number] [address] [address] * (ABNORMAL) BASIC METABOLIC PANEL (11/23/2022 4:30 AM AUTOMOBILE DRIVERS) SODIUM 142 136 - 145 mmol/L 11/23/2022 6:08 AM [facility] Strutta [facility] POTASSIUM 4.3 3.5 - 5.1 mmol/L 11/23/2022 6:08 AM [facility] Strutta [facility] Comment:Slightly hemolyzed. Result may be falsely elevated. CHLORIDE 104 98 - 107 mmol/L 11/23/2022 6:08 AM [facility] CO2 30(H) 22 - 29 mmol/L 11/23/2022 6:08 AM [facility] CALCIUM 9.5 8.8 - 10.2 mg/dL 11/23/2022 6:08 AM [facility] BUN 25(H) 8 - 23 mg/dL 11/23/2022 6:08 AM [facility] CREATININE 0.92 0.67 - 1.17 mg/dL 11/23/2022 6:08 AM [facility] GLUCOSE 135(H) 74 - 99 mg/dL 11/23/2022 6:08 AM [facility] GFR >60 >=60 mL/min/1.7 3 sq meter 11/23/2022 6:08 AM [facility] Comment:eGFR calculated with 2020 CKD-EPI equation. Vegetarian diet, extremely high or low muscle mass, and may affect results. Cystatin C with Glomerular Filtration Rate is a suitable alternative for these patients. ANION GAP 8(L) 9 - 20 mmol/L 11/23/2022 6:08 AM [facility] Blood Collection / Unknown 11/23/2022 4:30 AM AUTOMOBILE DRIVERS 11/23/2022 5:49 AM AUTOMOBILE DRIVERS Low Amaya DO CHEMISTRY ORDERABLES Final R esult [facility] CLIA # [id number] [address] [place] [address] documented in this encounter Visit Diagnoses Not on filedocumented in this encounter Additional Health Concerns Infection Onset Date Last Indicated Resolved Time C Diff 11/17/2022 11/17/2022 01/16/2023 1:16 AM CDT documented as of this encounter Care Teams Senior Managing Director Relationship Specialty Start Date End Date Shant Ballesteros Jr., MD [address] [place] [address] PCP - General Family Practice 01/19/14 documented as of this encounter
--- OUTSIDE RECORDS SUMMARY | 2025-04-14 12:37 | XMS_ITS | Encounter Summary ---
Author Organization [employer] [facility] Address [address] [place] [address] Care Team Providers Care Gambling Supervisor Name Role Phone Favian Maldonado MD, Shant Humphreys Primary Care Provider Encounter Details Date Type Department Care Team (Late st Contact Info) Description 11/26/2022 Lab Requisition [facility] Laboratory Services [address] [place] [address] Low Amaya, DO [address] [place] [address] Social History Tobacco Use Types Packs/Day Years Used Date Smoking Tobacco: Never Assessed Sex and Gender Information Value Date Recorded Sex Assigned at Not on file Legal 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 HAM PUMPER Gender Identity Not on file Sexual Orientation Not on file documented as of this encounter Plan of Treatment Not on file documented as of this encounter Procedures Procedure Name Priority Date/Time Associated Diagnosis Comments CALCIUM IONIZED Routine 11/26/2022 6:20 AM HAM PUMPER documented in this encounter Results * CALCIUM IONIZED (11/26/2022 6:20 AM HAM PUMPER) CALCIUM IONIZED 5.3 4.8 - 5.6 mg/dL 11/27/2022 9:49 AM HAM PUMPER [facility] Blood Collection / Unknown 11/26/2022 6:20 AM HAM PUMPER 11/26/2022 9:28 AM HAM PUMPER Narrative [facility] - 11/27/2022 9:49 AM HAM PUMPER Performing Organization Information: Site ID: [id number] Name: [facility] Address: [address] [address] Director: Andrew Alvarado MD us Low Amaya DO CHEMISTRY ORDERABLES Final R esult [facility] documented in this encounter Visit Diagnoses Not on filedocumented in this encounter Additional Health Concerns Infection Onset Date Last Indicated Resolved Time C Diff 11/17/2022 11/17/2022 01/16/2023 1:16 AM CDT documented as of this encounter Care Teams Gambling Supervisor Relationship Specialty Start Date End Date Shant Ballesteros Jr., MD [address] [place] [address] PCP - General Family Practice 01/19/14 documented as of this encounter
--- OUTSIDE RECORDS SUMMARY | 2025-04-14 12:37 | XMS_ITS | Clinical Summary ---
Author Organization [facility] Address [address] [place] [address] Phone Care Team Providers Care Bacteriologist Industrial Name Role Phone Favian Maldonado MD, Shant [...] (1 of 2) 2005 INFLUENZA VACCINE (#1) 2025 RSV VACCINE (60+ or ) (1 - 1-dose 75+ series) 2030 Insurance [employer] [id number] HMO Care Teams Bacteriologist Industrial Relationship Specialty Start Date End Date Shant Ballesteros Jr., MD [address] [place] [address] PCP - General Family Practice 01/19/14
--- OUTSIDE RECORDS SUMMARY | 2025-04-14 12:37 | XMS_ITS | Encounter Summary ---
Author Organization [employer] [facility] Address [address] [place] [address] Care Team Providers Care Talent Development Director Name Role Phone Favian Maldonado MD, Shant Humphreys Primary Care Provider Encounter Details Date Type Department Care Team (Late st Contact Info) Description 12/03/2022 Lab Requisition [facility] Laboratory Services [address] [place] [address] Andre Mary, MADHU [address] [facility] [address] [place] [address] Social History Tobacco Use Types Packs/Day Years Used Date Smoking Tobacco: Never Assessed Sex and Gender Information Value Date Recorded Sex Assigned at Not on file Legal 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 EDGE DRUMMER Gender Identity Not on file Sexual Orientation Not on file documented as of this encounter Plan of Treatment Not on file documented as of this encounter Procedures Procedure Name Priority Date/Time Associated Diagnosis Comments CBC WITH DIFFERENTIAL Routine 12/03/2022 2:00 AM EDGE DRUMMER TRIGLYCERIDE Routine 12/03/2022 2:00 AM EDGE DRUMMER PHOSPHORUS Routine 12/03/2022 2:00 AM EDGE DRUMMER MAGNESIUM LEVEL Routine 12/03/2022 2:00 AM EDGE DRUMMER COMPREHENSIVE METABOLIC PANEL Routine 12/03/2022 2:00 AM EDGE DRUMMER documented in this encounter Results * MAGNESIUM LEVEL (12/03/2022 2:00 AM EDGE DRUMMER) MAGNESIUM 1.9 1.6 - 2.4 mg/dL 12/03/2022 7:06 AM [facility] Blood Collection / Unknown 12/03/2022 2:00 AM EDGE DRUMMER 12/03/2022 6:33 AM EDGE DRUMMER Adnre Mary EAR NOSE THROAT SURGEON CHEMISTRY ORDERABLES Fin al Result Performing Organization Address [facility] de Phone Number [facility] CLIA # [id number] [address] [place], [place] [address] * (ABNORMAL) TRIGLYCERIDE (12/03/2022 2:00 AM EDGE DRUMMER) Pathologist [facility] TRIGLYCERIDE 163(H) <150 mg/dL 12/03/2022 7:06 AM [facility] Blood Collection / Unknown 12/03/2022 2:00 AM EDGE DRUMMER 12/03/2022 6:33 AM EDGE DRUMMER Narrative [facility] - 12/03/2022 7:06 AM EDGE DRUMMER TRIGLYCERIDES mg/dL Normal < 150 Borderline High 150 - 199 High 200 - 499 Very High >= 500 Based on AHA/NCEP Guidelines. Andre Mary EAR NOSE THROAT SURGEON CHEMISTRY ORDERABLES Fin al Result Performing Organization Address [facility] de Phone Number [facility] CLIA # [id number] [address] [facility] [place], [place] [address] * PHOSPHORUS (12/03/2022 2:00 AM EDGE DRUMMER) Pathologist [facility] PHOSPHORUS 3.3 2.5 - 4.5 mg/dL 12/03/2022 7:06 AM [facility] Blood Collection / Unknown 12/03/2022 2:00 AM EDGE DRUMMER 12/03/2022 6:33 AM EDGE DRUMMER us Andre Mary NP CHEMISTRY ORDERABLES Fin al Result [facility] CLIA # [id number] [address] [facility] [place] [address] * (ABNORMAL) CBC WITH DIFFERENTIAL (12/03/2022 2:00 AM EDGE DRUMMER) [facility] WBC 6.5 4.8 - 10.8 K/uL 12/03/2022 6:40 AM [facility] RBC 3.05(L) 4.60 - 6.20 M/uL 12/03/2022 6:40 AM [facility] HEMOGLOBIN 9.1(L) 14.0 - 18.0 g/dL 12/03/2022 6:40 AM [facility] HEMATOCRIT 30.4(L) 41.0 - 53.0 % 12/03/2022 6:40 AM [facility] MCV 99.7 84.0 - 103.0 fL 12/03/2022 6:40 AM [facility] MCH 29.8 27.0 - 34.0 pg 12/03/2022 6:40 AM [facility] MCHC 29.9(L) 30.0 - 35.0 g/dL 12/03/2022 6:40 AM [facility] RDW 17.5(H) 11.0 - 14.5 % 12/03/2022 6:40 AM [facility] RDW-STDEV 63.8(H) 37.0 - 54.0 fL 12/03/2022 6:40 AM [facility] PLATELETS 247 140 - 440 K/uL 12/03/2022 6:40 AM [facility] MPV 10.6 8.9 - 12.8 fL 12/03/2022 6:40 AM [facility] NEUTROPHILS 57 42 - 75 % 12/03/2022 6:40 AM [facility] LYMPHOCYTES 19(L) 24 - 44 % 12/03/2022 6:40 AM [facility] MONOCYTES 12(H) 2 - 10 % 12/03/2022 6:40 AM [facility] EOSINOPHILS 11(H) 0 - 7 % 12/03/2022 6:40 AM [facility] BASOPHILS 1 0 - 1 % 12/03/2022 6:40 AM [facility] IMMATURE GRANULOCYTES 1 0 - 2 % 12/03/2022 6:40 AM [facility] NEUTROPHIL ABSOLUTE 3.68 2.00 - 8.00 K/uL 12/03/2022 6:40 AM [facility] LYMPHOCYTE ABSOLUTE 1.22 1.20 - 4.00 K/uL 12/03/2022 6:40 AM [facility] MONOCYTE ABSOLUTE 0.80(H) 0.10 - 0.60 K/uL 12/03/2022 6:40 AM [facility] EOSINOPHIL ABSOLUTE 0.69 0.00 - 0.70 K/uL 12/03/2022 6:40 AM [facility] BASOPHILS ABSOLUTE 0.06 0.00 - 0.20 K/uL 12/03/2022 6:40 AM [facility] IMMATURE GRANULOCYTES ABSOLUTE 0.03 0.00 - 0.10 K/uL 12/03/2022 6:40 AM [facility] Blood Collection / Unknown 12/03/2022 2:00 AM EDGE DRUMMER 12/03/2022 6:32 AM [facility] us Andre Mary EAR NOSE THROAT SURGEON HEMATOLOGY ORDERABLES Fi nal Result [facility] CLIA # [id number] [address] [facility] [place] [id number] * (ABNORMAL) COMPREHENSIVE METABOLIC PANEL (12/03/2022 2:00 AM EDGE DRUMMER) [facility] SODIUM 140 136 - 145 mmol/L 12/03/2022 7:06 AM [facility] POTASSIUM 3.5 3.5 - 5.1 mmol/L 12/03/2022 7:06 AM [facility] CHLORIDE 101 98 - 107 mmol/L 12/03/2022 7:06 AM [facility] CO2 31(H) 22 - 29 mmol/L 12/03/2022 7:06 AM [facility] CALCIUM 9.8 8.8 - 10.2 mg/dL 12/03/2022 7:06 AM [facility] BUN 28(H) 8 - 23 mg/dL 12/03/2022 7:06 AM [facility] CREATININE 0.88 0.67 - 1.17 mg/dL 12/03/2022 7:06 AM [facility] GLUCOSE 130(H) 74 - 99 mg/dL 12/03/2022 7:06 AM [facility] TOTAL PROTEIN 6.8 6.4 - 8.3 g/dL 12/03/2022 7:06 AM [facility] ALBUMIN 3.1(L) 3.5 - 5.2 g/dL 12/03/2022 7:06 AM [facility] BILIRUBIN TOTAL 0.3 0.2 - 1.0 mg/dL 12/03/2022 7:06 AM [facility] ALKALINE PHOSPHATASE 104 40 - 129 U/L 12/03/2022 7:06 AM [facility] AST 19 10 - 50 U/L 12/03/2022 7:06 AM [facility] ALT 14 <=50 U/L 12/03/2022 7:06 AM [facility] GFR >60 >=60 mL/min/1.7 3 sq meter 12/03/2022 7:06 AM [facility] Comment:eGFR calculated with 2020 CKD-EPI equation. Vegetarian diet, extremely high or low muscle mass, and may affect results. Cystatin C with Glomerular Filtration Rate is a suitable alternative for these patients. ANION GAP 8(L) 9 - 20 mmol/L 12/03/2022 7:06 AM EDGE DRUMMER [facility] Blood Collection / Unknown 12/03/2022 2:00 AM EDGE DRUMMER 12/03/2022 6:33 AM EDGE DRUMMER us Andre Mary EAR NOSE THROAT SURGEON CHEMISTRY ORDERABLES Fin al Result [facility] CLIA # [id number] [facility] [address] [place] [address] documented in this encounter Visit Diagnoses Not on filedocumented in this encounter Additional Health Concerns Infection Onset Date Last Indicated Resolved Time C Diff 11/17/2022 11/17/2022 01/16/2023 1:16 AM CDT documented as of this encounter Care Teams Talent Development Director Relationship Specialty Start Date End Date Shant Ballesteros Jr., MD [address] [place] [address] PCP - General Family Practice 01/19/14 documented as of this encounter
--- OUTSIDE RECORDS SUMMARY | 2025-04-14 12:37 | XMS_ITS | Encounter Summary ---
Author Organization [employer] Address [address] [place] [address] Care Team Providers Care Oil Tank Car Cleaner Name Role Phone Favian Maldonado MD, Shant Humphreys Primary Care Provider Encounter Details Date Type Department Care Team (Late st Contact Info) Description 11/30/2022 Lab Requisition [facility] Laboratory Services [address] [place] [address] Low Amaya, DO [address] [place] [phone] Social History Tobacco Use Types Packs/Day Years Used Date Smoking Tobacco: Never Assessed Sex and Gender Information Value Date Recorded Sex Assigned at Not on file Legal 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 ONCOLOGY COORDINATOR Gender Identity Not on file Sexual Orientation Not on file documented as of this encounter Plan of Treatment Not on file documented as of this encounter Procedures Procedure Name Priority Date/Time Associated Diagnosis Comments PHOSPHORUS Routine 11/30/2022 4:55 AM ONCOLOGY COORDINATOR MAGNESIUM LEVEL Routine 11/30/2022 4:55 AM ONCOLOGY COORDINATOR BASIC METABOLIC PANEL Routine 11/30/2022 4:55 AM ONCOLOGY COORDINATOR documented in this encounter Results * MAGNESIUM LEVEL (11/30/2022 4:55 AM ONCOLOGY COORDINATOR) MAGNESIUM 2.0 1.6 - 2.4 mg/dL 11/30/2022 8:00 AM ONCOLOGY COORDINATOR [facility] Blood Collection / Unknown 11/30/2022 4:55 AM ONCOLOGY COORDINATOR 11/30/2022 6:21 AM ONCOLOGY COORDINATOR Low Amaya DO CHEMISTRY ORDERABLES Final R esult Performing Organization Address [facility]/ZIP Co de Phone Number [facility] CLIA # [id number] [address] [address] * PHOSPHORUS (11/30/2022 4:55 AM ONCOLOGY COORDINATOR) PHOSPHORUS 3.6 2.5 - 4.5 mg/dL 11/30/2022 6:35 AM [facility] Blood Collection / Unknown 11/30/2022 4:55 AM ONCOLOGY COORDINATOR 11/30/2022 6:21 AM ONCOLOGY COORDINATOR Low Amaya DO CHEMISTRY ORDERABLES Final R esult Performing Organization Address [facility]/ZIP Co de Phone Number [facility] CLIA # [id number] [address] [address] * (ABNORMAL) BASIC METABOLIC PANEL (11/30/2022 4:55 AM ONCOLOGY COORDINATOR) SODIUM 140 136 - 145 mmol/L 11/30/2022 6:35 AM [facility] POTASSIUM 4.1 3.5 - 5.1 mmol/L 11/30/2022 6:35 AM [facility] CHLORIDE 101 98 - 107 mmol/L 11/30/2022 6:35 AM [facility] CO2 34(H) 22 - 29 mmol/L 11/30/2022 6:35 AM [facility] CALCIUM 9.8 8.8 - 10.2 mg/dL 11/30/2022 6:35 AM [facility] BUN 31(H) 8 - 23 mg/dL 11/30/2022 6:35 AM [facility] CREATININE 0.99 0.67 - 1.17 mg/dL 11/30/2022 6:35 AM [facility] GLUCOSE 129(H) 74 - 99 mg/dL 11/30/2022 6:35 AM [facility] GFR >60 >=60 mL/min/1.7 3 sq meter 11/30/2022 6:35 AM [facility] Comment:eGFR calculated with 2020 CKD-EPI equation. Vegetarian diet, extremely high or low muscle mass, and may affect results. Cystatin C with Glomerular Filtration Rate is a suitable alternative for these patients. ANION GAP 5(L) 9 - 20 mmol/L 11/30/2022 6:35 AM [facility] Blood Collection / Unknown 11/30/2022 4:55 AM ONCOLOGY COORDINATOR 11/30/2022 6:21 AM ONCOLOGY COORDINATOR Low Amaya DO CHEMISTRY ORDERABLES Final R esult [facility] CLIA # [id number] [address] [place] [address] documented in this encounter Visit Diagnoses Not on filedocumented in this encounter Additional Health Concerns Infection Onset Date Last Indicated Resolved Time C Diff 11/17/2022 11/17/2022 01/16/2023 1:16 AM CDT documented as of this encounter Care Teams Oil Tank Car Cleaner Relationship Specialty Start Date End Date Shant Ballesteros Jr., MD [address] [place] [address] PCP - General Family Practice 01/19/14 documented as of this encounter
--- OUTSIDE RECORDS SUMMARY | 2025-04-14 12:37 | XMS_ITS | Encounter Summary ---
Author Organization [facility] Address [address] [place] [address] Care Team Providers Care Operations Program Manager Name Role Phone Favian Maldonado MD, Shant Humphreys Primary Care Provider Encounter Details Date Type Department Care Team (Late st Contact Info) Description 11/24/2022 Lab Requisition [facility] Laboratory Services [address] [place] [address] Andre Mary, MADHU [address] [facility] [address] [place] [address] Social History Tobacco Use Types Packs/Day Years Used Date Smoking Tobacco: Never Assessed Sex and Gender Information Value Date Recorded Sex Assigned at Not on file Legal 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 SEA AIR LAND OFFICER Gender Identity Not on file Sexual Orientation Not on file documented as of this encounter Plan of Treatment Not on file documented as of this encounter Procedures Procedure Name Priority Date/Time Associated Diagnosis Comments URINALYSIS W/REFLEX MICROSCOPIC Stat 11/24/2022 9:45 PM SEA AIR LAND OFFICER documented in this encounter Results * (ABNORMAL) URINALYSIS WITH REFLEX MICROSCOPIC (11/24/2022 9:45 PM SEA AIR LAND OFFICER) COLOR UA Yellow Pale to Dark Yellow 11/24/2022 11:07 PM SEA AIR LAND OFFICER [facility] CLARITY UA Clear Clear 11/24/2022 11:07 PM SEA AIR LAND OFFICER [facility] SPECIFIC GRAVITY UA 1.012 1.003 - 1.035 11/24/2022 11:07 PM [facility] PH UA 5.0 5.0 - 8.0 11/24/2022 11:07 PM [facility] LEUKOCYTE ESTERASE UA Negative Negative 11/24/2022 11:07 PM [facility] NITRITE UA Negative Negative 11/24/2022 11:07 PM [facility] PROTEIN UA Negative Negative 11/24/2022 11:07 PM [facility] GLUCOSE UA Negative Negative 11/24/2022 11:07 PM [facility] KETONES UA Negative Negative 11/24/2022 11:07 PM [facility] UROBILINOGEN UA <2.0 <2.0 mg/dL 11:07 PM [facility] BILIRUBIN UA Negative Negative 11/24/2022 11:07 PM [facility] BLOOD UA 1+(A) Negative 11/24/2022 11:07 PM [facility] WBC UA 0-2 0 - 2 /hpf 11/24/2022 11:07 PM [facility] RBC UA 0-2 0 - 2 /hpf 11/24/2022 11:07 PM [facility] BACTERIA UA Negative Negative /hpf 11/24/2022 11:07 PM [facility] EPITHELIAL CELLS, URINE 0-5 0 - 5 /hpf 11/24/2022 11:07 PM [facility] Urine URINE SPECIMEN OBTAINED BY CLEAN CATCH PROCEDURE / Unknown Collection / Unknown 11/24/2022 9:45 PM SEA AIR LAND OFFICER 11/24/2022 10:55 PM SEA AIR LAND OFFICER us Andre Mary SUPERVISOR LABOR GANG URINE ORDERABLES Final R esult [facility] CLIA # [id number] [address] [address] documented in this encounter Visit Diagnoses Not on filedocumented in this encounter Additional Health Concerns Infection Onset Date Last Indicated Resolved Time C Diff 11/17/2022 11/17/2022 01/16/2023 1:16 AM CDT documented as of this encounter Care Teams Operations Program Manager Relationship Specialty Start Date End Date Shant Ballesteros Jr., MD [address] [place] [address] PCP - General Family Practice 01/19/14 documented as of this encounter
--- OUTSIDE RECORDS SUMMARY | 2025-04-14 12:37 | XMS_ITS | Encounter Summary ---
Author Organization [employer] Address [address] [place] [address] Care Team Providers Care Drafter Mechanical Name Role Phone Favian Maldonado MD, Shant Humphreys Primary Care Provider Encounter Details Date Type Department Care Team (Late st Contact Info) Description 11/21/2022 Lab Requisition [facility] Laboratory Services [address] [place] [address] Low Amaya, DO [address] [place] [phone] Social History Tobacco Use Types Packs/Day Years Used Date Smoking Tobacco: Never Assessed Sex and Gender Information Value Date Recorded Sex Assigned at Not on file Legal 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 TRAFFIC OR SYSTEM DISPATCHER Gender Identity Not on file Sexual Orientation Not on file documented as of this encounter Plan of Treatment Not on file documented as of this encounter Procedures Procedure Name Priority Date/Time Associated Diagnosis Comments PHOSPHORUS Routine 11/21/2022 4:40 AM TRAFFIC OR SYSTEM DISPATCHER MAGNESIUM LEVEL Routine 11/21/2022 4:40 AM TRAFFIC OR SYSTEM DISPATCHER BASIC METABOLIC PANEL Routine 11/21/2022 4:40 AM TRAFFIC OR SYSTEM DISPATCHER documented in this encounter Results * MAGNESIUM LEVEL (11/21/2022 4:40 AM TRAFFIC OR SYSTEM DISPATCHER) MAGNESIUM 1.8 1.6 - 2.4 mg/dL 11/21/2022 5:26 AM TRAFFIC OR SYSTEM DISPATCHER [facility] Blood Collection / Unknown 11/21/2022 4:40 AM TRAFFIC OR SYSTEM DISPATCHER 11/21/2022 5:08 AM TRAFFIC OR SYSTEM DISPATCHER Low Amaya DO CHEMISTRY ORDERABLES Final R esult Performing Organization Address [facility]/ZIP Co de Phone Number [facility] CLIA # [id number] [address] [place] [address] * PHOSPHORUS (11/21/2022 4:40 AM TRAFFIC OR SYSTEM DISPATCHER) PHOSPHORUS 2.8 2.5 - 4.5 mg/dL 11/21/2022 5:26 AM [facility] Blood Collection / Unknown 11/21/2022 4:40 AM TRAFFIC OR SYSTEM DISPATCHER 11/21/2022 5:08 AM TRAFFIC OR SYSTEM DISPATCHER Low Amaya DO CHEMISTRY ORDERABLES Final R esult Performing Organization Address [facility]/ZIP Co de Phone Number [facility] CLIA # [id number] [address] [address] * (ABNORMAL) BASIC METABOLIC PANEL (11/21/2022 4:40 AM TRAFFIC OR SYSTEM DISPATCHER) SODIUM 145 136 - 145 mmol/L 11/21/2022 5:26 AM [facility] Sensdata [facility] POTASSIUM 3.5 3.5 - 5.1 mmol/L 11/21/2022 5:26 AM [facility] CHLORIDE 106 98 - 107 mmol/L 11/21/2022 5:26 AM [facility] CO2 31(H) 22 - 29 mmol/L 11/21/2022 5:26 AM [facility] CALCIUM 9.3 8.8 - 10.2 mg/dL 11/21/2022 5:26 AM [facility] BUN 29(H) 8 - 23 mg/dL 11/21/2022 5:26 AM [facility] CREATININE 0.95 0.67 - 1.17 mg/dL 11/21/2022 5:26 AM [facility] GLUCOSE 136(H) 74 - 99 mg/dL 11/21/2022 5:26 AM [facility] GFR >60 >=60 mL/min/1.7 3 sq meter 11/21/2022 5:26 AM [facility] Comment:eGFR calculated with 2020 CKD-EPI equation. Vegetarian diet, extremely high or low muscle mass, and may affect results. Cystatin C with Glomerular Filtration Rate is a suitable alternative for these patients. ANION GAP 8(L) 9 - 20 mmol/L 11/21/2022 5:26 AM [facility] Blood Collection / Unknown 11/21/2022 4:40 AM TRAFFIC OR SYSTEM DISPATCHER 11/21/2022 5:08 AM TRAFFIC OR SYSTEM DISPATCHER Low Amaya DO CHEMISTRY ORDERABLES Final R esult [facility] CLIA # [id number] [address] [place] [address] documented in this encounter Visit Diagnoses Not on filedocumented in this encounter Additional Health Concerns Infection Onset Date Last Indicated Resolved Time C Diff 11/17/2022 11/17/2022 01/16/2023 1:16 AM CDT documented as of this encounter Care Teams Drafter Mechanical Relationship Specialty Start Date End Date Shant Ballesteros Jr., MD [address] [place] [address] PCP - General Family Practice 01/19/14 documented as of this encounter
--- NOTE | 2025-04-14 12:38 | XR_ITS ---
WS: [id number] XR chest 1V portable [id number] REASON FOR EXAM: Shortness of breath FINDINGS: The chest is unchanged compared to 02/09/2025. Chemotherapy infusion port of the left chest with right IJ infusion catheter to the distal SVC. Moderate tortuosity and ectasia of the thoracic aorta. Cardiomegaly. Calcified granulomatous disease bilaterally. Mildly congested central pulmonary veins. Thoracic Marr rods. XR/XR chest 1V portable [id number] IMPRESSION: Stable chest with cardiomegaly. No acute abnormality.
--- OUTSIDE RECORDS SUMMARY | 2025-04-14 12:38 | XMS_ITS | Encounter Summary ---
Author Organization [employer] [facility] Address [address] [place] [address] Care Team Providers Care Concrete Mixing Plant Laborer Name Role Phone Favian Maldonado MD, Shant Humphreys Primary Care Provider Encounter Details Date Type Department Care Team (Late st Contact Info) Description 11/19/2022 Lab Requisition [facility] Laboratory Services [address] [place] [address] Low Amaya, DO [address] [place] [phone] Social History Tobacco Use Types Packs/Day Years Used Date Smoking Tobacco: Never Assessed Sex and Gender Information Value Date Recorded Sex Assigned at Not on file Legal 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 ROOM COOLER INSTALLER Gender Identity Not on file Sexual Orientation Not on file documented as of this encounter Plan of Treatment Not on file documented as of this encounter Procedures Procedure Name Priority Date/Time Associated Diagnosis Comments TRIGLYCERIDE Routine 11/19/2022 2:55 AM ROOM COOLER INSTALLER PHOSPHORUS Routine 11/19/2022 2:55 AM ROOM COOLER INSTALLER MAGNESIUM LEVEL Routine 11/19/2022 2:55 AM ROOM COOLER INSTALLER COMPREHENSIVE METABOLIC PANEL Routine 11/19/2022 2:55 AM ROOM COOLER INSTALLER documented in this encounter Results * TRIGLYCERIDE (11/19/2022 2:55 AM ROOM COOLER INSTALLER) TRIGLYCERIDE 126 <150 mg/dL 11/19/2022 6:43 AM ROOM COOLER INSTALLER [facility] Blood Collection / Unknown 11/19/2022 2:55 AM ROOM COOLER INSTALLER 11/19/2022 6:22 AM ROOM COOLER INSTALLER Narrative [facility] - 11/19/2022 6:43 AM ROOM COOLER INSTALLER TRIGLYCERIDES mg/dL Normal < 150 Borderline High 150 - 199 High 200 - 499 Very High >= 500 Based on AHA/NCEP Guidelines. Low Amaya DO CHEMISTRY ORDERABLES Final R esult Performing Organization Address [facility] Co de Phone Number [facility] CLIA # [id number] [address] [facility] [place] [address] * PHOSPHORUS (11/19/2022 2:55 AM ROOM COOLER INSTALLER) PHOSPHORUS 4.4 2.5 - 4.5 mg/dL 11/19/2022 6:43 AM ROOM COOLER INSTALLER [facility] Blood Collection / Unknown 11/19/2022 2:55 AM ROOM COOLER INSTALLER 11/19/2022 6:22 AM ROOM COOLER INSTALLER Low Amaya DO CHEMISTRY ORDERABLES Final R esult Performing Organization Address [facility] Co de Phone Number [facility] CLIA # [id number] [address] [address] * MAGNESIUM LEVEL (11/19/2022 2:55 AM ROOM COOLER INSTALLER) MAGNESIUM 1.9 1.6 - 2.4 mg/dL 11/19/2022 6:43 AM ROOM COOLER INSTALLER [facility] Blood Collection / Unknown 11/19/2022 2:55 AM ROOM COOLER INSTALLER 11/19/2022 6:22 AM ROOM COOLER INSTALLER Low Amaya DO CHEMISTRY ORDERABLES Final R esult Performing Organization Address [facility] Co de Phone Number [facility] CLIA # [id number] [address] [address] [place] [address] * (ABNORMAL) COMPREHENSIVE METABOLIC PANEL (11/19/2022 2:55 AM ROOM COOLER INSTALLER) SODIUM 144 136 - 145 mmol/L 11/19/2022 6:43 AM [facility] POTASSIUM 3.5 3.5 - 5.1 mmol/L 11/19/2022 6:43 AM [facility] CHLORIDE 105 98 - 107 mmol/L 11/19/2022 6:43 AM [facility] CO2 32(H) 22 - 29 mmol/L 11/19/2022 6:43 AM [facility] CALCIUM 9.1 8.8 - 10.2 mg/dL 11/19/2022 6:43 AM [facility] BUN 22 8 - 23 mg/dL 11/19/2022 6:43 AM [facility] CREATININE 0.99 0.67 - 1.17 mg/dL 11/19/2022 6:43 AM [facility] GLUCOSE 169(H) 74 - 99 mg/dL 11/19/2022 6:43 AM [facility] TOTAL PROTEIN 6.6 6.4 - 8.3 g/dL 11/19/2022 6:43 AM [facility] ALBUMIN 3.0(L) 3.5 - 5.2 g/dL 11/19/2022 6:43 AM [facility] BILIRUBIN TOTAL 0.2 0.2 - 1.0 mg/dL 11/19/2022 6:43 AM [facility] ALKALINE PHOSPHATASE 64 40 - 129 U/L 11/19/2022 6:43 AM [facility] AST 13 10 - 50 U/L 11/19/2022 6:43 AM [facility] ALT 8 <=50 U/L 11/19/2022 6:43 AM [facility] GFR >60 >=60 mL/min/1.7 3 sq meter 11/19/2022 6:43 AM ROOM COOLER INSTALLER [facility] Comment:eGFR calculated with 2020 CKD-EPI equation. Vegetarian diet, extremely high or low muscle mass, and may affect results. Cystatin C with Glomerular Filtration Rate is a suitable alternative for these patients. ANION GAP 7(L) 9 - 20 mmol/L 11/19/2022 6:43 AM ROOM COOLER INSTALLER [facility] Blood Collection / Unknown 11/19/2022 2:55 AM ROOM COOLER INSTALLER 11/19/2022 6:22 AM ROOM COOLER INSTALLER us Low Amaya DO CHEMISTRY ORDERABLES Final R esult [facility] CLIA # [id number] [address] [address] documented in this encounter Visit Diagnoses Not on filedocumented in this encounter Additional Health Concerns Infection Onset Date Last Indicated Resolved Time C Diff 11/17/2022 11/17/2022 01/16/2023 1:16 AM CDT documented as of this encounter Care Teams Concrete Mixing Plant Laborer Relationship Specialty Start Date End Date Shant Ballesteros Jr., MD [address] [place] [address] PCP - General Family Practice 01/19/14 documented as of this encounter
--- OUTSIDE RECORDS SUMMARY | 2025-04-14 12:38 | XMS_ITS | Clinical Summary ---
Author Organization [facility] Address [address] Lara: Epic Prelude ADT JUVENAL MAHARAJ [address] Care Team Providers Care Cash Management Associate Name Role Phone Favian Maldonado MD, [...] 01/04/20 23 Active naloxone (NARCAN) 4 mg/spray Ault, Non-Aerosol EMERGENCY USE ONLY: Administer 1 spray [...] 12/21/2022 Immunizations Immunization Administration Dates Next Due ([employer])(12 YR UP) COVID-19 VACCINE - EMERGENCY USE AUTHORIZATION, MRNA, [id number](PF) 30 MCG/0.3 ML IM SUSP 11/09/2022 (PNEUMOVAX [...] drink = 0.6 oz pur e alcohol) Sex and Gender Information Value Date Recorded Sex Assigned at Not on file Legal 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 FRUIT OR NUT PICKER Gender Identity Not on file Sexual Orientation [...] (2 of 2 - PCV) 08/04/2021 08/04/2020 COVID-19 Vaccine (2 - season) 05/31/202406/2023 INFLUENZA VACCINE (#1) 2025 08/04/2020 RSV VACCINE (60+ or ) (1 - 1-dose 75+ series) 2030 Insurance BCBS MEDICARE HMO Advance Directives For more information, please contact: [phone] * Full Code (Latest Code Status on File) Date Activated Date Inactivated Comments 12/21/2022 9:43 PM 01/03/2023 3:13 PM Care Teams Cash Management Associate Relationship Specialty Start Date End Date Shant Ballesteros Jr., MD [address] [place] [address] PCP - General Family Practice 01/19/14
--- OUTSIDE RECORDS SUMMARY | 2025-04-14 12:38 | XMS_ITS | Encounter Summary ---
Author Organization [facility] Address [address] [place] [address] Care Team Providers Care Senior Military Analyst Name Role Phone Favian Maldonado MD, Shant Humphreys Primary Care Provider Encounter Details Date Type Department Care Team (Late st Contact Info) Description 11/09/2022 Lab Requisition [facility] Laboratory Services [address] [place] [address] [place] [address] Soni Jeffery MD [address] [place] [address] Social History Tobacco Use Types Packs/Day Years Used Date Smoking Tobacco: Never Assessed Sex and Gender Information Value Date Recorded Sex Assigned at Not on file Legal 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 HIGH RIGGER Gender Identity Not on file Sexual Orientation Not on file documented as of this encounter Plan of Treatment Not on file documented as of this encounter Procedures Procedure Name Priority Date/Time Associated Diagnosis Comments CBC WITH DIFFERENTIAL Routine 11/09/2022 6:15 PM HIGH RIGGER BASIC METABOLIC PANEL Routine 11/09/2022 6:15 PM HIGH RIGGER documented in this encounter Results * (ABNORMAL) CBC WITH DIFFERENTIAL (11/09/2022 6:15 PM HIGH RIGGER) [facility] WBC 7.2 4.8 - 10.8 K/uL 11/09/2022 7:07 PM HIGH RIGGER [facility] RBC 2.78(L) 4.60 - 6.20 M/uL 11/09/2022 7:07 PM [facility] HEMOGLOBIN 8.0(L) 14.0 - 18.0 g/dL 11/09/2022 7:07 PM [facility] HEMATOCRIT 27.5(L) 41.0 - 53.0 % 11/09/2022 7:07 PM [facility] MCV 98.9 84.0 - 103.0 fL 11/09/2022 7:07 PM [facility] MCH 28.8 27.0 - 34.0 pg 11/09/2022 7:07 PM [facility] MCHC 29.1(L) 30.0 - 35.0 g/dL 11/09/2022 7:07 PM [facility] RDW 15.9(H) 11.0 - 14.5 % 11/09/2022 7:07 PM [facility] RDW-STDEV 57.7(H) 37.0 - 54.0 fL 11/09/2022 7:07 PM [facility] PLATELETS 250 140 - 440 K/uL 11/09/2022 7:07 PM [facility] MPV 10.9 8.9 - 12.8 fL 11/09/2022 7:07 PM [facility] NEUTROPHILS 65 42 - 75 % 11/09/2022 7:07 PM [facility] LYMPHOCYTES 11(L) 24 - 44 % 11/09/2022 7:07 PM [facility] MONOCYTES 17(H) 2 - 10 % 11/09/2022 7:07 PM [facility] EOSINOPHILS 6 0 - 7 % 11/09/2022 7:07 PM [facility] BASOPHILS 1 0 - 1 % 11/09/2022 7:07 PM [facility] IMMATURE GRANULOCYTES 1 0 - 2 % 11/09/2022 7:07 PM [facility] NEUTROPHIL ABSOLUTE 4.64 2.00 - 8.00 K/uL 11/09/2022 7:07 PM [facility] LYMPHOCYTE ABSOLUTE 0.79(L) 1.20 - 4.00 K/uL 11/09/2022 7:07 PM [facility] MONOCYTE ABSOLUTE 1.19(H) 0.10 - 0.60 K/uL 11/09/2022 7:07 PM [facility] EOSINOPHIL ABSOLUTE 0.42 0.00 - 0.70 K/uL 11/09/2022 7:07 PM [facility] BASOPHILS ABSOLUTE 0.04 0.00 - 0.20 K/uL 11/09/2022 7:07 PM [facility] IMMATURE GRANULOCYTES ABSOLUTE 0.08 0.00 - 0.10 K/uL 11/09/2022 7:07 PM [facility] Blood Collection / Unknown 11/09/2022 6:15 PM HIGH RIGGER 11/09/2022 7:03 PM [facility] Soni Jeffery MD HEMATOLOGY ORDERABLES Final Resu lt [facility] CLIA # [id number] [facility] [address] * (ABNORMAL) BASIC METABOLIC PANEL (11/09/2022 6:15 PM HIGH RIGGER) SODIUM 140 136 - 145 mmol/L 11/09/2022 7:39 PM [facility] POTASSIUM 4.8 3.5 - 5.1 mmol/L 11/09/2022 7:39 PM [facility] CHLORIDE 106 98 - 107 mmol/L 11/09/2022 7:39 PM [facility] CO2 26 22 - 29 mmol/L 11/09/2022 7:39 PM [facility] CALCIUM 8.6(L) 8.8 - 10.2 mg/dL 11/09/2022 7:39 PM [facility] BUN 22 8 - 23 mg/dL 11/09/2022 7:39 PM [facility] CREATININE 1.15 0.67 - 1.17 mg/dL 11/09/2022 7:39 PM [facility] GLUCOSE 121(H) 74 - 99 mg/dL 11/09/2022 7:39 PM HIGH RIGGER [facility] GFR >60 >=60 mL/min/1.7 3 sq meter 11/09/2022 7:39 PM [facility] Comment:eGFR calculated with 2020 CKD-EPI equation. Vegetarian diet, extremely high or low muscle mass, and may affect results. Cystatin C with Glomerular Filtration Rate is a suitable alternative for these patients. ANION GAP 8(L) 9 - 20 mmol/L 11/09/2022 7:39 PM [facility] Blood Collection / Unknown 11/09/2022 6:15 PM HIGH RIGGER 11/09/2022 7:03 PM HIGH RIGGER Soni Jeffery MD CHEMISTRY ORDERABLES Final Resul t Performing Organization Address City/State/[facility] Co de Phone Number [facility] CLIA # [id number] [facility] [address] documented in this encounter Visit Diagnoses Not on filedocumented in this encounter Additional Health Concerns Infection Onset Date Last Indicated Resolved Time C Diff 11/17/2022 11/17/2022 01/16/2023 1:16 AM CDT documented as of this encounter Care Teams Senior Military Analyst Relationship Specialty Start Date End Date Shant Ballesteros Jr., MD [address] [place] [address] PCP - General Family Practice 01/19/14 documented as of this encounter
--- OUTSIDE RECORDS SUMMARY | 2025-04-14 12:38 | XMS_ITS | Encounter Summary ---
Author Organization [employer] [facility] Address [address] [place] [address] Care Team Providers Care Reeling Operator Name Role Phone Favian Maldonado MD, Shant Humphreys Primary Care Provider Encounter Details Date Type Department Care Team (Late st Contact Info) Description 11/17/2022 Lab Requisition [facility] Laboratory Services [address] [place] [address] Andre Mary, MADHU [address] [facility] [address] [place] [address] Social History Tobacco Use Types Packs/Day Years Used Date Smoking Tobacco: Never Assessed Sex and Gender Information Value Date Recorded Sex Assigned at Not on file Legal 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 PATIENT OFFICE REP Gender Identity Not on file Sexual Orientation Not on file documented as of this encounter Plan of Treatment Not on file documented as of this encounter Procedures Procedure Name Priority Date/Time Associated Diagnosis Comments CBC WITH DIFFERENTIAL Stat 11/17/2022 4:30 AM PATIENT OFFICE REP TRIGLYCERIDE Stat 11/17/2022 4:30 AM PATIENT OFFICE REP PHOSPHORUS Stat 11/17/2022 4:30 AM PATIENT OFFICE REP MAGNESIUM LEVEL Stat 11/17/2022 4:30 AM PATIENT OFFICE REP COMPREHENSIVE METABOLIC PANEL Routine 11/17/2022 4:30 AM PATIENT OFFICE REP documented in this encounter Results * TRIGLYCERIDE (11/17/2022 4:30 AM PATIENT OFFICE REP) TRIGLYCERIDE 103 <150 mg/dL 11/17/2022 5:51 AM PATIENT OFFICE REP [facility] Blood Collection / Unknown 11/17/2022 4:30 AM PATIENT OFFICE REP 11/17/2022 5:31 AM PATIENT OFFICE REP Narrative [facility] - 11/17/2022 5:51 AM PATIENT OFFICE REP TRIGLYCERIDES mg/dL Normal < 150 Borderline High 150 - 199 High 200 - 499 Very High >= 500 Based on AHA/NCEP Guidelines. Andre Mary AQUATIC SCIENTIST CHEMISTRY ORDERABLES Fin al Result Performing Organization Address City/[facility]/ZIP Co de Phone Number [facility] CLIA # [id number] [id number] [place], [place] [id number] * PHOSPHORUS (11/17/2022 4:30 AM PATIENT OFFICE REP) Pathologist [facility] PHOSPHORUS 3.2 2.5 - 4.5 mg/dL 11/17/2022 5:51 AM PATIENT OFFICE REP [facility] Blood Collection / Unknown 11/17/2022 4:30 AM PATIENT OFFICE REP 11/17/2022 5:31 AM PATIENT OFFICE REP Andre Mary AQUATIC SCIENTIST CHEMISTRY ORDERABLES Fin al Result [facility] CLIA # [id number] [address] [facility] [place], [place] [address] * MAGNESIUM LEVEL (11/17/2022 4:30 AM PATIENT OFFICE REP) MAGNESIUM 2.1 1.6 - 2.4 mg/dL 11/17/2022 5:51 AM PATIENT OFFICE REP [facility] Blood Collection / Unknown 11/17/2022 4:30 AM PATIENT OFFICE REP 11/17/2022 5:31 AM PATIENT OFFICE REP us Andre Mary NP CHEMISTRY ORDERABLES Fin al Result [facility] CLBRYANT # [id number] [address] [facility] [facility] [place] [address] * (ABNORMAL) CBC WITH DIFFERENTIAL (11/17/2022 4:30 AM PATIENT OFFICE REP) [facility] WBC 8.8 4.8 - 10.8 K/uL 11/17/2022 5:58 AM [facility] RBC 2.68(L) 4.60 - 6.20 M/uL 11/17/2022 5:58 AM [facility] HEMOGLOBIN 8.0(L) 14.0 - 18.0 g/dL 11/17/2022 5:58 AM [facility] HEMATOCRIT 27.6(L) 41.0 - 53.0 % 11/17/2022 5:58 AM [facility] MCV 103.0 84.0 - 103.0 fL 11/17/2022 5:58 AM [facility] MCH 29.9 27.0 - 34.0 pg 11/17/2022 5:58 AM [facility] MCHC 29.0(L) 30.0 - 35.0 g/dL 11/17/2022 5:58 AM [facility] RDW 18.1(H) 11.0 - 14.5 % 11/17/2022 5:58 AM [facility] RDW-STDEV 65.9(H) 37.0 - 54.0 fL 11/17/2022 5:58 AM [facility] PLATELETS 296 140 - 440 K/uL 11/17/2022 5:58 AM [facility] MPV 9.6 8.9 - 12.8 fL 11/17/2022 5:58 AM [facility] NEUTROPHILS 67 42 - 75 % 11/17/2022 5:58 AM [facility] LYMPHOCYTES 12(L) 24 - 44 % 11/17/2022 5:58 AM [facility] MONOCYTES 13(H) 2 - 10 % 11/17/2022 5:58 AM [facility] EOSINOPHILS 6 0 - 7 % 11/17/2022 5:58 AM [facility] BASOPHILS 1 0 - 1 % 11/17/2022 5:58 AM [facility] IMMATURE GRANULOCYTES 2 0 - 2 % 11/17/2022 5:58 AM [facility] NEUTROPHIL ABSOLUTE 5.91 2.00 - 8.00 K/uL 11/17/2022 5:58 AM [facility] LYMPHOCYTE ABSOLUTE 1.04(L) 1.20 - 4.00 K/uL 11/17/2022 5:58 AM [facility] MONOCYTE ABSOLUTE 1.10(H) 0.10 - 0.60 K/uL 11/17/2022 5:58 AM [facility] EOSINOPHIL ABSOLUTE 0.56 0.00 - 0.70 K/uL 11/17/2022 5:58 AM [facility] BASOPHILS ABSOLUTE 0.06 0.00 - 0.20 K/uL 11/17/2022 5:58 AM [facility] IMMATURE GRANULOCYTES ABSOLUTE 0.13(H) 0.00 - 0.10 K/uL 11/17/2022 5:58 AM [facility] Blood Collection / Unknown 11/17/2022 4:30 AM PATIENT OFFICE REP 11/17/2022 5:30 AM [facility] us Andre Mary AQUATIC SCIENTIST HEMATOLOGY ORDERABLES Fi nal Result [facility] CLIA # [id number] [address] [address] [place], [place] [id number] * (ABNORMAL) COMPREHENSIVE METABOLIC PANEL (11/17/2022 4:30 AM PATIENT OFFICE REP) [facility] SODIUM 144 136 - 145 mmol/L 11/17/2022 5:51 AM [facility] POTASSIUM 3.8 3.5 - 5.1 mmol/L 11/17/2022 5:51 AM [facility] CHLORIDE 107 98 - 107 mmol/L 11/17/2022 5:51 AM [facility] CO2 34(H) 22 - 29 mmol/L 11/17/2022 5:51 AM [facility] CALCIUM 9.1 8.8 - 10.2 mg/dL 11/17/2022 5:51 AM [facility] BUN 20 8 - 23 mg/dL 11/17/2022 5:51 AM [facility] CREATININE 1.03 0.67 - 1.17 mg/dL 11/17/2022 5:51 AM [facility] GLUCOSE 151(H) 74 - 99 mg/dL 11/17/2022 5:51 AM [facility] TOTAL PROTEIN 6.5 6.4 - 8.3 g/dL 11/17/2022 5:51 AM [facility] ALBUMIN 2.8(L) 3.5 - 5.2 g/dL 11/17/2022 5:51 AM [facility] BILIRUBIN TOTAL 0.3 0.2 - 1.0 mg/dL 11/17/2022 5:51 AM [facility] ALKALINE PHOSPHATASE 69 40 - 129 U/L 11/17/2022 5:51 AM [facility] AST 12 10 - 50 U/L 11/17/2022 5:51 AM [facility] ALT 10 <=50 U/L 11/17/2022 5:51 AM [facility] GFR >60 >=60 mL/min/1.7 3 sq meter 11/17/2022 5:51 AM [facility] Comment:eGFR calculated with 2020 CKD-EPI equation. Vegetarian diet, extremely high or low muscle mass, and may affect results. Cystatin C with Glomerular Filtration Rate is a suitable alternative for these patients. ANION GAP 3(L) 9 - 20 mmol/L 11/17/2022 5:51 AM PATIENT OFFICE REP [facility] [employer] [facility] Blood Collection / Unknown 11/17/2022 4:30 AM PATIENT OFFICE REP 11/17/2022 5:31 AM PATIENT OFFICE REP Andre Mary AQUATIC SCIENTIST CHEMISTRY ORDERABLES Fin al Result [facility] [employer] [facility] CLIA # [id number] [address] [address] [place] [address] documented in this encounter Visit Diagnoses Not on filedocumented in this encounter Additional Health Concerns Infection Onset Date Last Indicated Resolved Time C Diff 11/17/2022 11/17/2022 01/16/2023 1:16 AM CDT documented as of this encounter Care Teams Reeling Operator Relationship Specialty Start Date End Date Shant Ballesteros Jr., MD [address] [place] [address] PCP - General Family Practice 01/19/14 documented as of this encounter
--- OUTSIDE RECORDS SUMMARY | 2025-04-14 12:38 | XMS_ITS | Encounter Summary ---
Author Organization [employer] [facility] Address [address] [place] [address] Care Team Providers Care Research Tech Name Role Phone Favian Maldonado MD, Shant Humphreys Primary Care Provider Encounter Details Date Type Department Care Team (Late st Contact Info) Description 11/19/2022 Lab Requisition [facility] Laboratory Services [address] [place] [address] Low Amaya, DO [address] [place] [address] Social History Tobacco Use Types Packs/Day Years Used Date Smoking Tobacco: Never Assessed Sex and Gender Information Value Date Recorded Sex Assigned at Not on file Legal 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 ENERGY TECHNICIAN Gender Identity Not on file Sexual Orientation Not on file documented as of this encounter Plan of Treatment Not on file documented as of this encounter Procedures Procedure Name Priority Date/Time Associated Diagnosis Comments CALCIUM IONIZED Routine 11/19/2022 3:45 PM ENERGY TECHNICIAN documented in this encounter Results * CALCIUM IONIZED (11/19/2022 3:45 PM ENERGY TECHNICIAN) CALCIUM IONIZED 5.2 4.8 - 5.6 mg/dL 11/21/2022 10:53 AM ENERGY TECHNICIAN [facility] Blood Collection / Unknown 11/19/2022 3:45 PM ENERGY TECHNICIAN 11/20/2022 7:56 AM ENERGY TECHNICIAN Narrative [facility] - 11/21/2022 10:53 AM ENERGY TECHNICIAN Performing Organization Information: Site ID: [id number] Name: [facility] Address: [address] [address] Director: Andrew Alvarado MD us Low Amaya DO CHEMISTRY ORDERABLES Final R esult [facility] documented in this encounter Visit Diagnoses Not on filedocumented in this encounter Additional Health Concerns Infection Onset Date Last Indicated Resolved Time C Diff 11/17/2022 11/17/2022 01/16/2023 1:16 AM CDT documented as of this encounter Care Teams Research Tech Relationship Specialty Start Date End Date Shant Ballesteros Jr., MD [address] [place] [address] PCP - General Family Practice 01/19/14 documented as of this encounter
--- OUTSIDE RECORDS SUMMARY | 2025-04-14 12:38 | XMS_ITS | Encounter Summary ---
Author Organization [facility] Address [address] [place] [address] Care Team Providers Care Overnight Caregiver Name Role Phone Favian Maldonado MD, Shant Humphreys Primary Care Provider Encounter Details Date Type Department Care Team (Late st Contact Info) Description 11/17/2022 Lab Requisition [facility] Laboratory Services [address] [place] [address] [place] [address] Cary Javier PA-C [address] [place] [id number] Social History Tobacco Use Types Packs/Day Years Used Date Smoking Tobacco: Never Assessed Sex and Gender Information Value Date Recorded Sex Assigned at Not on file Legal 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 COMPRESSOR TECHNICIAN Gender Identity Not on file Sexual Orientation Not on file documented as of this encounter Plan of Treatment Not on file documented as of this encounter Procedures Procedure Name Priority Date/Time Associated Diagnosis Comments C. DIFFICILE DETECTION Routine 11/17/2022 10:45 AM COMPRESSOR TECHNICIAN documented in this encounter Results * (ABNORMAL) C. DIFFICILE DETECTION (11/17/2022 10:45 AM COMPRESSOR TECHNICIAN) TOXIGENIC C DIFFICILE DETECTED( A) Not Detected 11/17/2022 1:45 PM COMPRESSOR TECHNICIAN [facility] [employer] [facility] Stool STOOL SPECIMEN / Unknown Collection / Unknown 11/17/2022 10:45 AM COMPRESSOR TECHNICIAN 11/17/2022 12:20 PM COMPRESSOR TECHNICIAN Narrative [facility] [employer] [facility] - 11/17/2022 1:45 PM COMPRESSOR TECHNICIAN Cdiff detected called to Cait Feng [facility] by CATRACHO REINA on 11/17/2022 at 1:44 [...] MICROBIOLOGY - GENERAL ORDERAB LES Final Result [facility] [employer] [facility] CLIA # [id number] [facility] [address] documented in this encounter Visit Diagnoses Not on filedocumented in this encounter Additional Health Concerns Infection Onset Date Last Indicated Resolved Time C Diff 11/17/2022 11/17/2022 01/16/2023 1:16 AM CDT documented as of this encounter Care Teams Overnight Caregiver Relationship Specialty Start Date End Date Shant Ballesteros Jr., MD [address] [place] [address] PCP - General Family Practice 01/19/14 documented as of this encounter
--- OUTSIDE RECORDS SUMMARY | 2025-04-14 12:38 | XMS_ITS | Encounter Summary ---
Author Organization [facility] Address [address] [place] [address] Care Team Providers Care Home Designer Name Role Phone Favian Maldonado MD, Shant Humphreys Primary Care Provider Encounter Details Date Type Department Care Team (Late st Contact Info) Description 11/10/2022 Lab Requisition [facility] Laboratory Services [address] [place] [address] [place] [address] Soni Jeffery MD [address] [place] [address] Social History Tobacco Use Types Packs/Day Years Used Date Smoking Tobacco: Never Assessed Sex and Gender Information Value Date Recorded Sex Assigned at Not on file Legal 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 DECK SCALER Gender Identity Not on file Sexual Orientation Not on file documented as of this encounter Plan of Treatment Not on file documented as of this encounter Procedures Procedure Name Priority Date/Time Associated Diagnosis Comments CBC WITH DIFFERENTIAL Stat 11/10/2022 2:20 PM DECK SCALER documented in this encounter Results * (ABNORMAL) CBC WITH DIFFERENTIAL (11/10/2022 2:20 PM DECK SCALER) WBC 5.2 4.8 - 10.8 K/uL 11/10/2022 3:18 PM DECK SCALER [facility] RBC 2.60(L) 4.60 - 6.20 M/uL 11/10/2022 3:18 PM DECK SCALER [facility] HEMOGLOBIN 7.6(L) 14.0 - 18.0 g/dL 11/10/2022 3:18 PM [facility] HEMATOCRIT 25.3(L) 41.0 - 53.0 % 11/10/2022 3:18 PM [facility] MCV 97.3 84.0 - 103.0 fL 11/10/2022 3:18 PM [facility] MCH 29.2 27.0 - 34.0 pg 11/10/2022 3:18 PM [facility] MCHC 30.0 30.0 - 35.0 g/dL 11/10/2022 3:18 PM [facility] RDW 15.8(H) 11.0 - 14.5 % 11/10/2022 3:18 PM [facility] RDW-STDEV 56.3(H) 37.0 - 54.0 fL 11/10/2022 3:18 PM [facility] PLATELETS 249 140 - 440 K/uL 11/10/2022 3:18 PM [facility] MPV 11.0 8.9 - 12.8 fL 11/10/2022 3:18 PM [facility] NEUTROPHILS 62 42 - 75 % 11/10/2022 3:18 PM [facility] LYMPHOCYTES 15(L) 24 - 44 % 11/10/2022 3:18 PM [facility] MONOCYTES 17(H) 2 - 10 % 11/10/2022 3:18 PM [facility] EOSINOPHILS 6 0 - 7 % 11/10/2022 3:18 PM [facility] BASOPHILS 1 0 - 1 % 11/10/2022 3:18 PM [facility] IMMATURE GRANULOCYTES 1 0 - 2 % 11/10/2022 3:18 PM [facility] NEUTROPHIL ABSOLUTE 3.22 2.00 - 8.00 K/uL 11/10/2022 3:18 PM [facility] LYMPHOCYTE ABSOLUTE 0.78(L) 1.20 - 4.00 K/uL 11/10/2022 3:18 PM [facility] MONOCYTE ABSOLUTE 0.87(H) 0.10 - 0.60 K/uL 11/10/2022 3:18 PM DECK SCALER [facility] EOSINOPHIL ABSOLUTE 0.30 0.00 - 0.70 K/uL 11/10/2022 3:18 PM DECK SCALER [facility] BASOPHILS ABSOLUTE 0.03 0.00 - 0.20 K/uL 11/10/2022 3:18 PM DECK SCALER [facility] IMMATURE GRANULOCYTES ABSOLUTE 0.03 0.00 - 0.10 K/uL 11/10/2022 3:18 PM DECK SCALER [facility] Blood Collection / Unknown 11/10/2022 2:20 PM DECK SCALER 11/10/2022 3:09 PM DECK SCALER Soni Jeffery MD HEMATOLOGY ORDERABLES Final Resu lt [facility] CLIA # [id number] [facility] [address] [address] documented in this encounter Visit Diagnoses Not on filedocumented in this encounter Additional Health Concerns Infection Onset Date Last Indicated Resolved Time C Diff 11/17/2022 11/17/2022 01/16/2023 1:16 AM CDT documented as of this encounter Care Teams Home Designer Relationship Specialty Start Date End Date Shant Ballesteros Jr., MD [address] [place] [address] PCP - General Family Practice 01/19/14 documented as of this encounter
--- NOTE | 2025-04-14 12:39 | CT_ITS ---
WS: [id number] CT ABDOMEN PELVIS TECHNIQUE: Contrast-enhanced CT of the abdomen and pelvis with coronal and sagittal reformatted images. CLINICAL INFORMATION: Abdominal pain COMPARISON: 03/04/2025 DLP: 1163.[address] scans at [facility] use at least one of these dose optimization techniques: automated exposure control; mA and/or kV adjustment per patient size (includes targeted exams where dose is matched to clinical indication); or iterative reconstruction. FINDINGS: RIGHT lower quadrant colostomy with prior partial colectomy. Stable rectosigmoid stump. Similar-appearing bulky metastatic disease in the RIGHT hepatic lobe. Prior recent studies all performed without contrast. Dominant lesion in the RIGHT hepatic lobe measures 4.2 cm. Progression is suspected but difficult to quantify. Some of the lesions appear more necrotic today which could be due to treatment related changes. Recommend correlation with liver function tests. Bibasilar atelectasis. Prior postoperative changes with dorsal Marr brooklynn fixation. Beam-hardening artifact degrades some images. Pedicle screw fixation in the lower lumbar spine and sacrum. Normal portal vein and splenic vein. Normal spleen. Normal GE junction. Normal pancreatic parenchymal enhancement. Slightly hydropic gallbladder. No gallbladder wall thickening or pericolic cystic fluid. This is similar to previous. Celiac and SMA are patent. Mild aortic calcification. Adrenal glands a re normal. Normal renal parenchymal enhancement. No hydronephrosis. Bilateral renal cyst and parenchymal scarring. Mild prostate enlargement measuring 4.8 cm. Diffuse bladder wall thickening can be seen with cystitis or bladder outlet obstruction. Recommend correlation for UTI. Colostomy is patent. No evidence of bowel obstruction. A few air-fluid levels in normal caliber small bowel loops in the anterior abdomen similar to the prior studies. CT/CT abdomen pelvis w con* [id number] IMPRESSION: 1. RIGHT lower quadrant colostomy is patent. No evidence of high-grade obstruc tion. Prior partial colectomy. 2. Bulky metastatic disease in the RIGHT hepatic lobe grossly similar to the p rior noncontrast studies. Suspected lesion progression in the RIGHT hepatic lob e although difficult to compare to the prior noncontrast studies. Some of the l esions appear more necrotic today which could be treatment related. 3. Diffuse bladder wall thickening with slight induration in the prevesical sp balta suspicious for cystitis. Recommend correlation for UTI. No hydronephrosis. 4. A few normal caliber small bowel loops with air-fluid levels although simil ar to the prior studies.
--- NOTE | 2025-04-14 12:39 | ECG_ITS ---
Phase Eight [employer] Test Date: 2025-04-14 Pat Name: Charan Voss Department: Room: Gender: Male [employer] Developer: : [id number] Requested By: Daria Finley Order Number: [id number] Richard MD: Raiza Orourke M.D. Measurements Intervals [place] Rate: 103 P: 0 SC: 0 QRS: -9 QRSD: 128 T: 131 QT: 347 QTc: 455 Interpretive Statements ATRIAL FIBRILLATION WITH RAPID VENTRICULAR RESPONSE SEPTAL MYOCARDIAL INFARCTION , OF INDETERMINATE AGE [40+ ms Q WAVE IN V1/V2] MODERATE T-WAVE ABNORMALITY, CONSIDER LATERAL ISCHEMIA [-0.1+ mV T-WAVE IN I/aVL/V5/V6] Compared to ECG 03/09/2025 19:02:25 T-wave abnormality now present Possible ischemia now present Myocardial infarct finding still present Electronically Signed On 04-14-2025 16:41:19 CDT by Raiza Orourke M.D. [email or web address]
--- NOTE | 2025-04-14 12:40 | CT_ITS ---
WS: [id number] CT HEAD TECHNIQUE: Noncontrast CT of the head obtained from the skullbase to the vertex. CLINICAL INFORMATION: fall, head injury COMPARISON: CT 03/07/2025 DLP: 1176.[address] scans at [facility] use at least one of these dose optimization techniques: automated exposure control; mA and/or kV adjustment per patient size (includes targeted exams where dose is matched to clinical indication); or iterative reconstruction. FINDINGS: No evidence of intracranial hemorrhage or mass effect. Ventricular system and basal cisterns are patent. Mild to moderate small vessel changes with mild parenchymal volume loss. No extra-axial fluid collections. No evidence of mass or mass effect. Vascular calcification Paranasal sinuses and mastoid air cells are well aerated. .Normal visualized soft tissues. CT/CT head wo con* [id number] IMPRESSION: 1. No evidence of intracranial hemorrhage or mass effect. 2. Mild to moderate small vessel changes. Mild parenchymal volume loss. 3. Vascular calcification. 4. No acute intracranial findings.
--- NOTE | 2025-04-14 12:41 | PC.NURSE ---
PATIENT PLACED ON 3 L NC DUE TO O2 SATURATION DROPPING TO 85%.
--- NOTE | 2025-04-14 13:00 | ED_ITS ---
HPI - Weakness 2 General: Chief complaint: Weakness Stated complaint: Pain near colostomy bag Time Seen by Provider: 04/14/25 12:34 History of Present Illness: 70-year-old man with a history of atrial fibrillation, chronic anticoagulation on Xarelto, history of metastatic colon cancer now with an ostomy, hypertension, obesity who presents emergency room by ambulance with pain after a fall 2 days ago. He is complaining of pain around his ostomy site. Also pain in his knees from a fall couple weeks ago. Says he has got some generalized weakness and is having trouble walking. Related Data Home Medications ?Medication ?Instructions ?Recorded ?Confirmed saw palmetto 500 mg capsule 500 mg PO DAILY 11/15/20 0 04/14/25 gabapentin 300 mg capsule 300 mg PO TID 02/04/2304/14 albuterol sulfate 90 mcg/actuation 2 puff inhalation Q 4H PRN 10/08/24 04/14/25 aerosol inhaler Shortness Of Breath digoxin 125 mcg (0.125 mg) tablet 0.125 mg PO DAILY 04/14/25 epinephrine 0.3 mg/0.3 mL See Rx Instructions .Route . COMPLEX 10/08/24 04/14/25 injection, auto-injector oxycodone 10 mg tablet 10 mg PO Q6H PRN Pain 04/14/25 vancomycin 125 mg capsule 125 mg PO DAILY 12/04/24 clobetasol 0.05 % topical cream 1 applic topical BID P RN hands 02/09/25 04/14/25 testosterone 3 pump topical DAILY 5 04/14/25 allopurinol 300 mg tablet 300 mg PO DAILY 04/14/25 fruquintinib 5 mg capsule See Rx Instructions .Route . COMPLEX 04/14/25 04/14/25 (Fruzaqla) metoprolol tartrate 25 mg tablet 25 mg PO Q12H 5 04/14/25 midodrine 5 mg tablet See Rx Instructions .Route . COMPLEX 04/14/25 04/14/25 sucralfate 1 gram tablet 1 g PO BID 04/14/25 04/14/25 Previous Rx's ?Medication ?Instructions ?Recorded pantoprazole 40 mg tablet,delayed 40 mg PO QAM #60 tab s 02/12/25 release (Protonix) amiodarone 200 mg tablet 200 mg PO DAILY #30 tabs 09/23 aspirin 81 mg tablet,delayed 81 mg PO DAILY #30 tabs 0 03/11/25 release atorvastatin 40 mg tablet 40 mg PO BEDTIME #30 tabs divalproex 500 mg tablet,delayed 500 mg PO TID #30 tab s 03/11/25 release (Depakote) trazodone 150 mg tablet 150 mg PO BEDTIME #30 tabs 0 03/11/25 Allergies Allergy/AdvReac Type Severity Reaction Status Date / Time apixaban Allergy Unknown Headaches Verified 03/12/25 07:56 blackberry Allergy Unknown ADR-Diarrhe Verified 03/12/25 07:56 a blueberry Allergy Unknown ADR-Diarrhe Verified 03/12/25 07:56 a egg Allergy Unknown DIARRHEA, Verified 03/12/25 07:56 VOMITING AND STOMACH CRAMPING raspberry Allergy Unknown ADR-Diarrhe Verified 03/12/25 07:56 a strawberry Allergy Unknown ADR-Diarrhe Verified 03/12/25 07:56 a tomato Allergy Unknown ADR-Gastrointestinal Verified 03/12/25 07:56 Upset oats Allergy DIARRHEA Verified 03/12/25 07:56 Opioids - Morphine Analogues Allergy ADR-Chest Verified 03/12/25 07:56 Pain caffeine AdvReac Unknown PALPITATION Verified 03/12/25 07:56 S apple AdvReac DIARRHEA, Verified 03/12/25 07:56 VOMITING AND CRAMPING meperidine (From Demerol) AdvReac EXCESSIVE Verified 03/12/25 07:56 SEDATION morphine AdvReac HALLUCINATI Verified 03/12/25 07:56 ONS berries Allergy Unknown Unknown Uncoded 03/12/25 07:56 FRYE Allergy Unknown Diarrhea Uncoded 03/12/25 07:56 raw tomatoes Allergy Unknown ADR-Gastrointestinal Uncoded 03/12/25 07:56 Upset Review of Systems 2 Narrative: Constitutional symptoms: Negative except as documented in HPI. Skin symptoms: Negative except as documented in HPI. Eye symptoms: Negative except as documented in HPI. ENMT symptoms: Negative except as documented in HPI. Respiratory symptoms: Negative except as documented in HPI. Cardiovascular symptoms: Negative except as documented in HPI. Gastrointestinal symptoms: Negative except as documented in HPI. Genitourinary symptoms: Negative except as documented in HPI. Musculoskeletal symptoms: Negative except as documented in HPI. Neurologic symptoms: Negative except as documented in HPI. Psychiatric symptoms: Negative except as documented in HPI. Endocrine symptoms: Negative except as documented in HPI. COUNT INCLUDES THE [facility] ED 2 PFS: Medical History (Updated 04/14/25 @ 16:37 by Daria Junior MD) Hydrops of gallbladder Atrial fibrillation with rapid ventricular response Elevated troponin Hypotension Orthostatic hypotension Complication of ostomy Ventilator dependent Intra-abdominal abscess post-procedure Metastatic colon cancer to liver Malignant neoplasm of splenic flexure Renal hematoma Colostomy complication C. 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 (~08/2022) hospitalized in [place] Chronic sinusitis of both maxillary sinuses Gout Asperger syndrome mild Dyslipidemia Degenerative joint disease (DJD) of lumbar spine Obstructive sleep apnea Chronic low back pain Substernal goiter Asthma Restrictive lung disease due to kyphoscoliosis Suspected exposure to asbestos Allergies Right renal stone Testosterone deficiency On TRT for 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 Erectile dysfunction Opioid contract exists previous Chronic pain syndrome Surgical History Hx of bilateral cataract extraction History of colostomy (11/01/22) Colostomy revision for control of bleeding History of exploratory laparotomy (10/15/22) Exploratory laparotomy with partial colon resection and with end colostomy formation Status post left hemicolectomy (10/08/22) laparoscopic converted to open, with splenic flexure takedown and right colon mobilization, primary anastamosis History of back surgery History of shoulder surgery History of appendectomy H/O arthroscopic knee surgery H/O ankle fusion H/O wrist surgery S/P ureteral stent placement Family History Grandfather CAD (coronary artery disease) Family/Other Cancer Grandmother Dementia Stroke Mother Lung disease Other Hypertension Denies family history of Rheumatoid arthritis Diabetes Lupus Clotting disorder Hyperlipidemia Chronic kidney disease (CKD) Suicide Anesthesia complication Bleeding disorder Social History Smoking and tobacco/nicotine status: former use of tobacco/nicotine Quit status (tobacco/nicotine): has quit using Year quit tobacco: 1976 [id number] Second hand smoke exposure: Yes Alcohol intake: never Substance/Drug Use: never Lives independently: Yes Current occupational status: retired Pets and animals: Yes Do you think of yourself as: Straight/Heterosexual Current gender identity: Male Physical Exam 2 Narrative: EXAM NARRATIVE: General: Alert, no acute distress. Skin: Warm, dry. Head: Normocephalic, atraumatic. Neck: Supple, trachea midline. Eye: Extraocular movements are intact. Ears, nose, mouth and throat: mucosa moist. Cardiovascular: Tachycardic, Normal peripheral perfusion. Respiratory: Lungs are clear to auscultation, respirations are non-labored, breath sounds are equal, Symmetrical chest wall expansion. Gastrointestinal: Soft, ostomy in place, there is some generalized abdominal tenderness, Non distended Musculoskeletal: Normal ROM, no deformity. Neurological: Alert and oriented, No focal neurological deficit observed. Psychiatric: Cooperative, appropriate mood & affect. Course 2 Vital Signs: Vital signs: Vital Signs Temperature 98.4 F 04/14/25 15:30 Pulse Rate 86 04/14/25 16:30 Respiratory Rate 16 04/14/25 12:32 Blood Pressure 106/66 04/14/25 16:30 Pulse Oximetry 97 04/14/25 16:30 Oxygen Delivery Me thod Nasal Cannula 04/14/25 16:30 Oxygen Flow Rate 2 04/14/25 16:30 MDM - Weakness Medical Decision Making Medical decision making: Differential diagnosis for patient presenting with generalized weakness including but not limited to and based on the above HPI, review of systems and physical exam: Sepsis. Dehydration. Renal failure. Electrolyte abnormalities. Anemia. Congestive heart failure. Hypotension. Coronary syndrome. Hepatitis. Cirrhosis. Infections such as pneumonia, urinary tract infection, [place] illness, Cellulitis, Viral infections including influenza and Covid-19. Workup: labwork and lab/exam driven imaging ordered to evaluate, rule in and rule out above pathologies. EKG: Time 1244. Rate 103. Atrial fibrillation with rapid ventricular response, nonspecific ST changes, no ectopy, This was reviewed and interpreted by myself the ER physician at 1248. Chest x-ray: No acute process. No infiltrate. No pneumothorax. This was reviewed and interpreted by myself the emergency room physician. I also reviewed the radiology report. CT head: No acute intracranial process. no intracranial hemorrhage, no evidence of infarct. no evidence of acute fracture.This was reviewed and interpreted by myself the ER physician. Lab Review: Laboratory results were reviewed and interpreted by myself the emergency room physician. Mild leukocytosis. Hemoglobin 10.8. This is above his baseline. BUN/creatinine are normal. No renal failure. Urinalysis is negative for infection but is quite concentrated. Indicating dehydration. CT of the abdomen pelvis with contrast: No acute process. No obvious acute changes. Full read below. This was reviewed and interpreted by myself the emergency room physician. I also reviewed the radiology report. I reviewed the patient's medical record. Reexamination: Patient remained stable. No increased work of breathing. No altered mental status. No focal motor deficits. Heart rate has come down. Blood pressure has stayed fairly normal. Temperature was 100.8 on presentation but resolved spontaneously. May have been from being out of the heat Assessment and plan: Dehydration Weakness Multiple falls ? 2 L normal saline bolus in the emergency room - Discharged home - Discussed plan with patient. Answered any questions. - Evaluation and treatment of this problem were appropriate in the emergency setting. Lab Data 04/14/25 13:00 04/14/25 13:00 Radiology Impressions Chest X-Ray 04/14/25 12:38 IMPRESSION: Stable chest with cardiomegaly. No acute abnormality. Abdomen/Pelvis CT 04/14/25 12:39 IMPRESSION: 1. RIGHT lower quadrant colostomy is patent. No evidence of high-grade obstruction. Prior partial colectomy. 2. Bulky metastatic disease in the RIGHT hepatic lobe grossly similar to the prior noncontrast studies. Suspected lesion progression in the RIGHT hepatic lobe although difficult to compare to the prior noncontrast studies. Some of the lesions appear more necrotic today which could be treatment related. 3. Diffuse bladder wall thickening with slight induration in the prevesical space suspicious for cystitis. Recommend correlation for UTI. No hydronephrosis. 4. A few normal caliber small bowel loops with air-fluid levels although similar to the prior studies. Head CT 04/14/25 12:40 IMPRESSION: 1. No evidence of intracranial hemorrhage or mass effect. 2. Mild to moderate small vessel changes. Mild parenchymal volume loss. 3. Vascular calcification. 4. No acute intracranial findings. Laboratory Results WBC 12.17 10^3/uL (3.29-11.43) H 04/14/25 13:00 RBC 3.63 10^6/uL (3.85-5.65) L 04/14/25 13:00 Hgb 10.80 g/dL (11.27-16.99) L 04/14/25 13:00 Hct 35.3 % (37-53) L 04/14/25 13:00 MCV 97.2 fl (82-101) 04/14/25 13:00 MCH 29.8 pg (27-33) 04/14/25 13:00 MCHC 30.6 g/dL (30-55) 04/14/25 13:00 RDW 15.8 % (12.1-15.1) H 04/14/25 13:00 Plt Count 230 10^3/cmm (157-399) 04/14/25 13:00 MPV 9.3 fL (7.4-10.4) 04/14/25 13:00 Neut % (Auto) 79.0 % 04/14/25 13:00 Lymph % (Auto) 7.2 % 04/14/25 13:00 [place] % (Auto) 12.3 % 04/14/25 13:00 Eos % (Auto) 0.7 % 04/14/25 13:00 Baso % (Auto) 0.3 % 04/14/25 13:00 Neut # (Auto) 9.60 10^3/uL (1.8-7.7) H 04/14/25 13:00 Lymph # (Auto) 0.9 10^3/uL (0.8-4.8) 04/14/25 13:00 [place] # (Auto) 1.5 10^3/uL (0.2-0.9) H 04/14/25 13:00 Eos # (Auto) 0.1 10^3/uL (0.0-0.8) 04/14/25 13:00 Baso # (Auto) 0.0 10^3/uL (0.0-0.1) 04/14/25 13:00 Nucleated RBC % (auto) 0 % 04/14/25 13:00 Nucleated RBCs # 0.0 /100WBC 04/14/25 13:00 Specimen Type Arterial 04/14/25 14:17 Sample Site Radial, right 04/14/25 14:17 ABG pH 7.39 (7.35-7.45) 04/14/25 14:17 ABG pCO2 49.8 mmHg (35-45) H 04/14/25 14:17 ABG pO2 97.5 mmHg (80.0-100.0) 04/14/25 14:17 ABG HCO3 30.0 mmol/L (22-26) H 04/14/25 14:17 ABG O2 Saturation 98.1 04/14/25 14:17 ABG Base Excess 4.2 mmol/L (-2.0-2.0) H 04/14/25 14:17 [place] Test Pos 04/14/25 14:17 A-a O2 Gradient Not Reportable 04/14/25 14:17 Hematocrit 33.6 % (42-52) L 04/14/25 14:17 Hgb O2 Saturation 94.7 % (95-100) L 04/14/25 14:17 Carboxyhemoglobin 2.7 %THgb (0.4-20.1) 04/14/25 14:17 Methemoglobin 0.8 % (0.4-1.5) 04/14/25 14:17 Total Hemoglobin 11.0 g/dL (14-18) L 04/14/25 14:17 Sodium 138.0 mmol/L (131-143) 04/14/25 14:17 Potassium 3.7 mmol/L (3.5-5.0) 04/14/25 14:17 Glucose 122.0 mg/dL (70-115) H 04/14/25 14:17 Ionized Calcium 1.2 mmol/L (1.1-1.4) 04/14/25 14:17 O2 Delivery Device Nc 04/14/25 14:17 O2 Liters/Min 3.0 % 04/14/25 14:17 Construction Safety Manager ID [place] 04/14/25 14:17 Sodium 138 mmol/L (136-145) 04/14/25 13:00 Potassium 3.8 mmol/L (3.5-5.1) 04/14/25 13:00 Chloride 99 mmol/L (98-107) 04/14/25 13:00 Carbon Dioxide 25 mmol/L (22-29) 04/14/25 13:00 Anion Gap 17.8 (5-19) 04/14/25 13:00 BUN 11 mg/dL (8-23) 04/14/25 13:00 Creatinine 0.9 mg/dL (0.7-1.2) 04/14/25 13:00 GFR Calculation 83.4 mL/min (90-130) L 04/14/25 13:00 Glucose 121 mg/dL (65-115) H 04/14/25 13:00 Calculated Osmolality 287 mOsm/kg (285-295) 04/14/25 13:00 Lactic Acid 1.3 mmol/L (0.5-2.2) 04/14/25 13:00 Calcium 9.1 mg/dL (8.5-10.5) 04/14/25 13:00 Total Bilirubin 0.8 mg/dL (0.15-1.2) 04/14/25 13:00 AST 20 U/L (0-40) 04/14/25 13:00 ALT 7 U/L (0-41) 04/14/25 13:00 Alkaline Phosphatase 70 U/L (40-130) 04/14/25 13:00 Troponin T Baseline 29 ng/L (0-15) H 04/14/25 13:00 C-Reactive Protein 283.5 mg/L (0.0-4.9) H 04/14/25 13:00 Total Protein 6.3 g/dL (6.6-8.7) L 04/14/25 13:00 Albumin 3.5 g/dL (3.5-5.2) 04/14/25 13:00 Globulin 2.8 g/dL (1.3-4.6) 04/14/25 13:00 Procalcitonin 0.64 ng/mL (0-0.5) H 04/14/25 13:00 Urine Color Yellow (Yellow) 04/14/25 15:00 Urine Appearance Clear (CLEAR) 04/14/25 15:00 Urine pH 5.5 (5-7) 04/14/25 15:00 Ur Specific [place] 1.075 (1.005-1.030) H 04/14/25 15:00 Urine Protein 1+ (Negative) A 04/14/25 15:00 Urine Glucose (UA) Negative (Normal) 04/14/25 15:00 Urine Ketones Trace (Negative) 04/14/25 15:00 Urine Blood Negative (Negative) 04/14/25 15:00 Urine Nitrate Negative (Negative) 04/14/25 15:00 Urine Bilirubin Negative (Negative) 04/14/25 15:00 Urine Urobilinogen 1.0 mg/dL (Negative) 04/14/25 15:00 Ur Leukocyte Esterase Negative (Negative) 04/14/25 15:00 Urine RBC 0-2 /hpf (0-2) 04/14/25 15:00 Urine WBC 0-5 /hpf (0-5) 04/14/25 15:00 Ur Squamous Epith Cells 0-5 /hpf (0-5) 04/14/25 15:00 Amorphous Sediment Not Reportable 04/14/25 15:00 Urine Bacteria None seen /hpf (NONE) 04/14/25 15:00 Hyaline Casts 1.65 /lpf 04/14/25 15:00 All radiology interpretation(s) finalized by discharge Discharge Plan Discharge Patient Disposition: Home Clinical Impression: Dehydration, Multiple falls Condition: Stable Prescriptions: No Action saw palmetto 500 mg capsule 500 mg PO DAILY vancomycin 125 mg capsule 125 mg PO DAILY testosterone 20.25 mg/1.25 gram (1.62 %) gel in metered-dose pump 3 pump topical DAILY clobetasol 0.05 % cream 1 applic TOPICAL BID PRN (Reason: hands) pantoprazole [Protonix] 40 mg tablet,delayed release (DR/EC) 40 mg PO QAM Qty: 60 0RF sucralfate 1 gram tablet 1 g PO BID midodrine 5 mg tablet See Rx Instructions .ROUTE .COMPLEX Rx Instructions: TAKE 1 TABLET BY MOUTH THREE TIMES DAILY. HOLD FOR SBP MORE THAN 120 MMHG. allopurinol 300 mg tablet 300 mg PO DAILY metoprolol tartrate 25 mg tablet 25 mg PO Q12H Fruzaqla 5 mg capsule See Rx Instructions .ROUTE .COMPLEX Rx Instructions: Take 1 capsule by mouth daily for 3 weeks, then off 1 week. gabapentin 300 mg capsule 300 mg PO TID digoxin 125 mcg (0.125 mg) tablet 0.125 mg PO DAILY epinephrine 0.3 mg/0.3 mL auto-injector See Rx Instructions .ROUTE .COMPLEX Rx Instructions: INJECT CONTENTS OF 1 PEN NEEDED FOR ALLERGIC REACTION albuterol sulfate 90 mcg/actuation HFA aerosol inhaler 2 puff INHALATION Q4H PRN (Reason: Shortness Of Breath) oxycodone 10 mg tablet 10 mg PO Q6H PRN (Reason: Pain) atorvastatin 40 mg Tablet 40 mg PO BEDTIME Qty: 30 0RF aspirin 81 mg Tablet,Delayed Release (Dr/Ec) 81 mg PO DAILY Qty: 30 0RF divalproex [Depakote] 500 mg tablet,delayed release (DR/EC) 500 mg PO TID Qty: 30 0RF amiodarone 200 mg tablet 200 mg PO DAILY Qty: 30 0RF trazodone 150 mg tablet 150 mg PO BEDTIME Qty: 30 0RF Discharge Orders: Discharge ED (Routine); Ordered 04/14/25 Ordered By: Daria Junior Referrals: Al Álvarez MD [Primary Care Provider, Family Practice] Discharge Diet: Usual diet Discharge Activity: Increase activity as tolerated Patient Instructions: Dehydration (ED), Opioid Safety, Pain Management, Patient Portal & Papa Instructions Activity Restrictions/Additional Instructions: Thank you for choosing [facility] for your healthcare needs today. You have been screened and evaluated and felt safe for discharge. Health conditions do change or evolve sometimes and as such it is important that you follow up with your Primary Doctor to be re checked, 3-5 days is a general good time frame for follow up. You are always welcome to return to the ED for re assessment if your symptoms are worsening or you have new concerns Print Language: Citizen Of [place] Coding Level of Care Code ED Supervisor [employer] for Scarlett San
--- NOTE | 2025-04-14 13:06 | PC.NURSE ---
SOAKING TANK WORKER asked pt for urine sample, pt handed urinal, pt attempted to go and was unsuccessful, pt states he will try again in a few minutes.
[2025-04-14 13:07] LABS: Hematocrit 35.3 % (37-53); Hemoglobin 10.80 g/dL (11.27-16.99); Mean Corpuscular HGB Conc 30.6 g/dL (30-55); Mean Corpuscular Hemoglobin 29.8 pg (27-33); Mean Corpuscular Volume 97.2 fl (82-101); Nucleated Red Blood Cells % 0 %; Platelet Count 230 10^3/cmm (157-399); Red Blood Count 3.63 10^6/uL (3.85-5.65); White Blood Count 12.17 10^3/uL (3.29-11.43)
[2025-04-14 13:29] LABS: Lactic Sepsis W/Reflex 1.3 mmol/L (0.5-2.2)
[2025-04-14 13:30] LABS: Troponin(5th) Baseline 29 ng/L (0-15)
[2025-04-14 13:35] LABS: Alanine Aminotransferase 7 U/L (0-41); Albumin Level 3.5 g/dL (3.5-5.2); Alkaline Phosphatase 70 U/L (40-130); Anion Gap 17.8 (5-19); Aspartate Amino Transferase 20 U/L (0-40); Blood Urea Nitrogen 11 mg/dL (8-23); Calcium 9.1 mg/dL (8.5-10.5); Carbon Dioxide 25 mmol/L (22-29); Chloride 99 mmol/L (98-107); Creatinine Clr Calc Pharmacy 107.2184; Globulin 2.8 g/dL (1.3-4.6); Glucose 121 mg/dL (65-115); Osmolality Calculated 287 mOsm/kg (285-295); Potassium 3.8 mmol/L (3.5-5.1); Sodium 138 mmol/L (136-145); Total Protein 6.3 g/dL (6.6-8.7)
[2025-04-14 13:42] LABS: Procalcitonin 0.64 ng/mL (0-0.5)
[2025-04-14] MEDS: iohexol 350 mg/mL 500 mL Btl (per mL) IV (13:54)
[2025-04-14 14:29] LABS: ABG PCO2 49.8 mmHg (35-45); ABG PH Result 7.39 (7.35-7.45); Arterial Blood Gas Hematocrit 33.6 % (42-52); Blood Gas Allen Test Pos; Blood Gas LPM 3.0 %; Blood Gas Operator Identificat WALCI; Blood Gas Sample Site Radial, right; Blood Gas Sample Type Arterial; Carboxyhemoglobin 2.7 %THgb (0.4-20.1); Glucose Level-ABG 122.0 mg/dL (70-115); HCO3 ABG 30.0 mmol/L (22-26); Ionized Calcium Level - ABG 1.2 mmol/L (1.1-1.4); Methemoglobin 0.8 % (0.4-1.5); Oxygen Saturation ABG 98.1; PO2 ABG 97.5 mmHg (80.0-100.0); Potassium Level - ABG 3.7 mmol/L (3.5-5.0); Sodium Level - ABG 138.0 mmol/L (131-143)
--- NOTE | 2025-04-14 14:53 | ECG_ITS ---
[facility] [employer] Test Date: 2025-04-14 Pat Name: Charan Voss Department: Room: Gender: Male Insurance Healthcare Representative: : 1955 Requested By: Daria Finley Order Number: [id number] Richard MD: Raiza Orourke M.D. Measurements Intervals [place] Rate: 84 P: 0 WI: 0 QRS: -10 QRSD: 120 T: 110 QT: 390 QTc: 462 Interpretive Statements ATRIAL FIBRILLATION SEPTAL MYOCARDIAL INFARCTION , OF INDETERMINATE AGE [40+ ms Q WAVE IN V1/V2] MODERATE T-WAVE ABNORMALITY, CONSIDER LATERAL ISCHEMIA [-0.1+ mV T-WAVE IN I/aVL/V5/V6] Compared to ECG 04/14/2025 12:44:11 No significant changes Electronically Signed On 04-14-2025 16:48:24 CDT by Raiza Orourke M.D. [email or web address]
[2025-04-14 15:09] LABS: Glucose Urine UA Negative (Normal); Nitrate Urine Negative (Negative)
[2025-04-14 15:32] LABS: Specific Gravity, Urine 1.075 (1.005-1.030)
--- NOTE | 2025-04-14 16:08 | PC.PHAR ---
Pt has 3 new medications from [facility] 03/11/25: Atorvastatin 40mg at hs, Depakote 500mg DR tid, and Trazodone 150mg at hs. Fruzaqla 5mg is Chemo medication from [facility]. [facility] states pt is no longer taking Xarelto 20mg from 12/09/24 30ds. Prochlorperazine 10mg is finished from 02/01/25. Gabapentin 300mg tid was verified but last picked up 07/17/24 90ds.
[2025-04-14 17:37] LABS: Troponin 5 2HR 28.39 ng/L (0-15); Troponin 5 2HR Delta -0.61 ABS# (0-10)
--- NOTE | 2025-04-14 18:00 | PC.NURSE ---
pt chest port deaccessed by Michell QUIROZ.
== END 2025-04-14 18:02 | disposition home or self-care (01) ==
PROVIDERS: Emergency Provider Emergency Medicine; PCP Family Medicine
DX: E86.0 Dehydration (principal); R29.6 Repeated falls; Z79.82 Long term (current) use of aspirin; Z87.891 Personal history of nicotine dependence; I10 Essential (primary) hypertension; E78.5 Hyperlipidemia, unspecified; Z85.038 Personal history of other malignant neoplasm of large intestine; Z85.05 Personal history of malignant neoplasm of liver
CPT/HCPCS: 36600; 70450; 71045; 74177; 80048; 80051; 80053; 81001; 82330; 82805; 83605; 84145; 84484; 85025; 86140; 93005; 96360; 96361; 99285; J7030

== ENCOUNTER 2025-04-27 16:14 | Emergency (ER) | payer MEDICARE, SELFPAY ==
--- OUTSIDE RECORDS SUMMARY | 2024-10-27 06:20 | XMS_ITS ---
Author Organization [facility] Address [address] [place] [address] Care Team Providers Care Front End Alignment Specialist Name Role Phone Kady Floyd Primary Care Provider Bala Wilson Unavailable [phone] KADY FLOYD Unavailable Unavailable Tonya Woodruff Unavailable REASON FOR VISIT 6M F/U W/CBC/ESTRADIOL/CMP/TESTOSTERONE/KUB Encounters Encounter Location Date Provider Diagnosis [facility] [address] [address] 10/27/2024 Tonya Woodruff Plan Of Treatment Next Appt Details Provider Name:Tonya Silverman, 05/05/2025 02:00:00 PM, [address] , [place] [address], [place], [address], Progress Notes * Charan KAMARA TDOB:1955 (70 yo M)Acc No.[id number]:10/27/2024 Progress Notes Patient: Naima herminio Charan Cháevz Provider: JIMENA Ramos :1955 A ge:69 Y S ex:Male Date:10/27/2024 Address:[address] [place], [place] [phone] Pcp:Kady Floyd Subjective: * Chief Complaints: * 6 M F/U W/CBC/ESTRADIOL/CMP/TESTOSTERONE/KUB Billing Information: * Procedure Codes: * Electronic signature of JIMENA Romeo on 04/27/2025 at 04:22 PM CDT Sign off status: Pending * Provider: JIMENA Ramos Date: 0 10/27/2024 Generated for Man Ho/Flaquito on: 0 04/27/2025 04:22 PM CDT
--- NOTE | 2025-04-27 16:20 | CTR_ITS ---
PROCEDURE INFORMATION: Exam: CT Chest With Contrast; Diagnostic Exam date and time: 04/27/2025 4:54 PM Age: 70 years old Clinical indication: Injury or trauma; Fall; Abdominal wall; Blunt trauma (contusions or hematomas); Prior surgery; Surgery date: 6+ months; Surgery type: Hemicolectomy colostomy johnson rods lumbar fusion TECHNIQUE: Imaging protocol: Diagnostic computed tomography of the chest with contrast. Radiation optimization: All CT scans at this facility use at least one of these dose optimization techniques: automated exposure control; mA and/or kV adjustment per patient size (includes targeted exams where dose is matched to clinical indication); or iterative reconstruction. Contrast material: OMNI 350; Contrast volume: 100 ml; Contrast route: INTRAVENOUS (IV); COMPARISON: [place] [id number] 03/04/2025 8:03 PM RADIATION DOSE METRICS: Total DLP (mGy-cm): 1740.47 FINDINGS: Tubes, catheters and devices: A right-sided VAD is in good position with the catheter tip in the lower SVC. Lungs: Unremarkable. No consolidation. No masses. Pleural spaces: Unremarkable. No pneumothorax. No pleural effusion. Heart: Unremarkable. No cardiomegaly. No pericardial effusion. Lymph nodes: Unremarkable. No enlarged lymph nodes. Vasculature: Unremarkable. No aortic aneurysm. Bones/joints: Metallic fixation rods are noted throughout the thoracic spine along with scoliosis. Soft tissues: Unremarkable. PROCEDURE INFORMATION: Exam: CT Abdomen And Pelvis With Contrast Exam date and time: 04/27/2025 4:54 PM Age: 70 years old Clinical indication: Injury or trauma; Fall; Abdominal wall; Blunt trauma (contusions or hematomas); Prior surgery; Surgery date: 6+ months; Surgery type: Hemicolectomy colostomy johnson rods lumbar fusion TECHNIQUE: Imaging protocol: Computed tomography of the abdomen and pelvis with contrast. Radiation optimization: All CT scans at this facility use at least one of these dose optimization techniques: automated exposure control; mA and/or kV adjustment per patient size (includes targeted exams where dose is matched to clinical indication); or iterative reconstruction. Contrast material: OMNI 350; Contrast volume: 100 ml; Contrast route: INTRAVENOUS (IV); COMPARISON: CT abdomen pelvis w con* [id number] 04/14/2025 1:50 PM RADIATION DOSE METRICS: Total DLP (mGy-cm): 1740.47 FINDINGS: Lungs: See Liver finding. Liver: There is a 1.8 cm rounded hypodense nodule lying within the anterior segment of the right hepatic lobe. In addition, there is a large area of poorly defined infiltrating mass effect throughout much of the remainder of the right lobe. Most of this abnormality lies within the posterior segment. Gallbladder and biliary ducts: Normal. No calcified stones. No ductal dilation. Pancreas: Normal. No ductal dilation. Spleen: Normal. No splenomegaly. Adrenal glands: Normal. No mass. Kidneys and ureters: A 4 cm left renal cyst is noted. Stomach and bowel: A right-sided colostomy is noted. There is evidence of previous surgery at the rectosigmoid junction. Appendix: No evidence of appendicitis. Intraperitoneal space: Unremarkable. No free air. No significant fluid collection. Vasculature: Unremarkable. No abdominal aortic aneurysm. Lymph nodes: Unremarkable. No enlarged lymph nodes. Urinary bladder: Unremarkable as visualized. Reproductive: The prostate gland is abnormally enlarged. Bones/joints: Unremarkable. No acute fracture. Soft tissues: Unremarkable. CT/CT chest abdpel w/*[id number] IMPRESSION: No acute findings. IMPRESSION: 1. No acute change noted 2. Stable metastatic disease involving the liver 3. A benign renal cyst or cysts have been detected. No further follow-up imaging is required. 4. Prostate enlargement with chronic bladder wall thickening COMMENTS: Consistent with the [employer]'s Incidental Findings Committee white paper (J Am Dg Radiol 2018): Any incidental renal lesion less than 1 cm or classified as too small to characterize, or any incidental cystic renal lesion characterized as simple-appearing, is likely benign. No follow-up imaging is recommended for these lesions per consensus recommendations based on imaging criteria.
--- NOTE | 2025-04-27 16:20 | CTR_ITS ---
PROCEDURE INFORMATION: Exam: CT Head Without Contrast Exam date and time: 04/27/2025 4:49 PM Age: 70 years old Clinical indication: Injury or trauma; Fall; Blunt trauma (contusions or hematomas); Consciousness not specified TECHNIQUE: Imaging protocol: Computed tomography of the head without contrast. Radiation optimization: All CT scans at this facility use at least one of these dose optimization techniques: automated exposure control; mA and/or kV adjustment per patient size (includes targeted exams where dose is matched to clinical indication); or iterative reconstruction. COMPARISON: CT head wo con* [id number] 04/14/2025 1:45 PM RADIATION DOSE METRICS: Total DLP (mGy-cm): 1244.3 FINDINGS: Brain: There is mild chronic periventricular white matter ischemic change. There is no evidence of mass effect, infarct or hemorrhage. Cerebral ventricles: No ventriculomegaly. No midline shift. Paranasal sinuses: Visualized sinuses are unremarkable. No fluid levels. Mastoid air cells: Visualized mastoid air cells are well aerated. Bones: Unremarkable. No acute fracture. Soft tissues: Unremarkable. CT/CT head wo con* [id number] IMPRESSION: No acute findings.
--- NOTE | 2025-04-27 16:20 | CTR_ITS ---
PROCEDURE INFORMATION: Exam: CT Cervical Spine Without Contrast Exam date and time: 04/27/2025 4:49 PM Age: 70 years old Clinical indication: Injury or trauma; Fall; Blunt trauma and concussion/head injury TECHNIQUE: Imaging protocol: Computed tomography of the cervical spine without contrast. Radiation optimization: All CT scans at this facility use at least one of these dose optimization techniques: automated exposure control; mA and/or kV adjustment per patient size (includes targeted exams where dose is matched to clinical indication); or iterative reconstruction. COMPARISON: CT cervical spin wo con* [id number] 07/07/2024 9:31 AM RADIATION DOSE METRICS: Total DLP (mGy-cm): 262.5 FINDINGS: Bones: Vertebral body spurring can be seen at multiple levels along with facet arthropathy. No fracture or subluxation noted. Lungs: Lung apices are normal. Soft tissues: Unremarkable. CT/CT cervical spin wo con* [id number] IMPRESSION: 1. No acute findings 2. Multilevel arthritic changes are noted.
[2025-04-27 16:21] VITALS: BP 117/77; PULSE 86; RESP 16; TEMP 36.7; O2SAT 96; BMI 31.6
--- OUTSIDE RECORDS SUMMARY | 2025-04-27 16:22 | XMS_ITS | Encounter Summary ---
Author Organization [facility] Address [address] [place] [address] Care Team Providers Care Banana Carrier Name Role Phone Favian Maldonado MD, Shant Humphreys Primary Care Provider Encounter Details Date Type Department Care Team (Late st Contact Info) Description 12/12/2022 Lab Requisition [facility] [address] [place] [address] Low Amaya, DO [address] [place] [address] Social History Tobacco Use Types Packs/Day Years Used Date Smoking Tobacco: Never Assessed Sex and Gender Information Value Date Recorded Sex Assigned at Not on file Legal 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 [employer] Gender Identity Not on file Sexual Orientation [...] - 4.5 mg/dL 12/12/2022 5:57 AM CDT [facility] Blood Collection / Unknown 12/12/2022 3:15 AM CDT 12/12/2022 5:23 AM CDT Low L Monique DO CHEMISTRY ORDERABLES Final R esult Performing Organization Address [facility] de Phone Number [facility] CLIA # [id number] [address] [place] [id number] * MAGNESIUM LEVEL (12/12/2022 3:15 AM CDT) MAGNESIUM 1.9 1.6 - 2.4 mg/dL 12/12/2022 5:57 AM CDT [facility] Blood Collection / Unknown 12/12/2022 3:15 AM CDT 12/12/2022 5:23 AM CDT Low Amaya CHEMISTRY ORDERABLES Final R esult Performing Organization Address [facility] de Phone Number [facility] CLIA # [id number] [address] [place] [id number] * (ABNORMAL) BASIC METABOLIC PANEL (12/12/2022 3:15 AM CDT) SODIUM 135(L) 136 - 145 mmol/L 12/12/2022 5:57 AM CDT [facility] POTASSIUM 4.7 3.5 - 5.1 mmol/L 12/12/2022 5:57 AM CDT [facility] CHLORIDE 101 98 - 107 mmol/L 12/12/2022 5:57 AM CDT [facility] CO2 24 22 - 29 mmol/L 12/12/2022 5:57 AM CDT [facility] CALCIUM 10.0 8.8 - 10.2 mg/dL 12/12/2022 5:57 AM CDT [facility] BUN 42(H) 8 - 23 mg/dL 12/12/2022 5:57 AM CDT [facility] CREATININE 1.00 0.67 - 1.17 mg/dL 12/12/2022 5:57 AM CDT [facility] GLUCOSE 133(H) 74 - 99 mg/dL 12/12/2022 5:57 AM CDT [facility] GFR >60 >=60 mL/min/1.7 3 sq meter 12/12/2022 5:57 AM CDT [facility] Comment:eGFR calculated with 2020 CKD-EPI equation. Vegetarian diet, extremely high or low muscle mass, and may affect results. Cystatin C with Glomerular Filtration Rate is a suitable alternative for these patients. ANION GAP 10 9 - 20 mmol/L 12/12/2022 5:57 AM CDT [facility] Blood Collection / Unknown 12/12/2022 3:15 AM CDT 12/12/2022 5:23 AM CDT Low Amaya DO CHEMISTRY ORDERABLES Final R esult [facility] CLIA # [id number] [facility] [address] documented in this encounter Visit Diagnoses Not on filedocumented in this encounter Additional Health Concerns Infection Onset Date Last Indicated Resolved Time C Diff 11/17/2022 11/17/2022 01/16/2023 1:16 AM CDT documented as of this encounter Care Teams Banana Carrier Relationship Specialty Start Date End Date Shant Ballesteros Jr., MD [address] [place] [id number] PCP - General Family Practice 01/19/14 documented as of this encounter
--- OUTSIDE RECORDS SUMMARY | 2025-04-27 16:22 | XMS_ITS | Data Portability ---
Author Organization [facility] Servando Carpio [facility], [facility], [facility] Address [address] [address] Care Team Providers Care Cook [employer] Name Role Phone SHERLYN ÁLVAREZ Primary Care Provider Assessment No assessment recorded. Plan of Treatment Reminders Order Date Submit Date Provider Last Modified By Organization Details Last Modified Time Details Appointments None recorded. Lab None recorded. Referral dermatologi st referral 2024 025 [email or web address] 2 Anna MARTINEZ, [address] [facility] [address], [address], 5 14:44:32 Procedures None recorded. Surgeries None recorded. Imaging None recorded. Medication Orders pantoprazol e 40 mg tablet,jak yed release 2024 025 [facility], [address], [place], [address], 5 14:59:52 sucralfate 1 gram tablet 2024 025 [facility] [address], [address], [place], [address], 5 14:59:54 midodrine 5 mg tablet 2024 025 [facility], [address], [place], [address], 14:59:54 Patient TargetsNo targets recorded. Patient Instructions Encounter Date Encounter Id Patient Instructions Last Modified By Organization Details Last Modified Time 03/15/2025 [id number] Admitted and tx with broad spectrum antibiotics. known hx of C.Diff and takes oral vanc, GI work up negative for infection. Stayed in ICU and required pressors, extensive work up done and no cause of infection. CT showed chest nonspecific pleural thickening, no acute infection. found to have elevated troponin, stress test was negative. D/c depakote that was start for hospital acquired delirium. Labs schedule. [email or web address] Not available 03/17/2025 15:49:02 03/24/2025 [id number] Admitted and tx with broad spectrum antibiotics. known hx of C.Diff and takes oral vanc, GI work up negative for infection. Stayed in ICU and required pressors, extensive work up done and no cause of infection. CT showed chest nonspecific pleural thickening, no acute infection. found to have elevated troponin, stress test was negative. Did well with therapy, planning to d/c home soon. Will need home health eval and tx. f/u pcp 7-14 daus after discharge. 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 N eoplasm of uncertain behavior of skin Referring Physician: Sherlyn Álvarez, Family Medicine, Encounter Date: 10/28/2024 Results Created Date Observation Date Name Description Value Unit Range Abnormal Flag Note LastModifiedBy Organization Detail LastModifiedTime 10/28/1910/28/2024 CBC WBC 7.4 x10 4.5-10 .5 Not Available [facility] [address] [facility] [address], [place], [address], 10/28/2024 13:54:31 10/28/19 25 10/28/2024 CBC RBC 4.30 x10 4.30-5 .90 Not Available [facility] [address] [facility] [address], [place], [address], 10/28/2024 13:54:31 10/28/19 25 10/28/2024 CBC HGB 14.2 g/dL 13.5-1 8.0 Not Available [facility] [address] [facility] 1, [place], [address], 10/28/2024 13:54:31 10/28/19 25 10/28/2024 CBC HCT 42.1 % 35.0-6 0.0 Not Available [facility] [address] [facility] 1, [place], [address], 10/28/2024 13:54:31 10/28/19 25 10/28/2024 CBC MCV 97.9 fL 80.0-9 9.9 Not Available [facility] [address] [facility] 1, [place], [address], 10/28/2024 13:54:31 10/28/1910/28/2024 CBC MCH 33.0 pg 27.0-3 2.0 high Not Available [facility] [address] [facility] 1, [place], [address], 10/28/2024 13:54:31 10/28/19 25 10/28/2024 CBC MCHC 33.7 g/dL 32.0-3 6.0 Not Available [facility] [address] [facility] 1, [place], [address], 10/28/2024 13:54:31 10/28/1910/28/2024 CBC RDW 15.9 % 11.5-1 4.5 high Not Available [facility] [address] [facility] 1, [place], [address], 10/28/2024 13:54:31 10/28/1910/28/2024 CBC plt 200.6 x10 150.0- 451.0 Not Available [facility] [address] [facility] 1, [place], [address], 10/28/2024 13:54:31 10/28/1910/28/2024 CBC lymphocytes % 17.0 % 20.0-5 0.0 low Not Available [facility] [address] [address], [place], [address], 10/28/2024 13:54:31 10/28/19 25 10/28/2024 CBC granulcytes % 73.0 % 30.0-7 0.0 high Not Available [facility] [address] [place] [facility], [place], [address], 10/28/2024 13:54:31 10/28/19 25 10/28/2024 CBC monocytes % 8.7 % 2.0-16 .0 Not Available [facility] [address] [address], [place], [address], 10/28/2024 13:54:31 10/28/19 25 10/28/2024 CBC granulcytes# 5.4 x10 Not Perla ilable [facility] [address] [address], [place], [address], 10/28/2024 13:54:31 10/28/1910/28/2024 CBC lymphocytes # 1.3 x10 Not Available [facility] [address] [address], [place], [address], 10/28/2024 13:54:31 10/28/1910/28/2024 CBC monocytes # 0.7 x10 Not Avai lable [facility] [address] [address], [place], [address], 10/28/2024 13:54:31 10/28/1910/28/2024 CMP (MALE ) glucose 131.0 mg/dL 60.0-9 9.0 high Not Available [facility] [address] [facility] [address] [address], [place], [address], 10/28/2024 15:56:08 10/28/19 25 10/28/2024 CMP (MALE ) BUN (blood urea nitrogen) 19.0 mg/dL 10.0-2 6.0 Not Available [facility] [address] [facility] 1, [place], [address], 10/28/2024 15:56:08 10/28/19 25 10/28/2024 CMP (MALE ) creatinine (serum) 1.3 mg/dL 0.4-1. 5 Not Available [facility] [address] [place] [address] [facility] 1, [place], [address], 10/28/2024 15:56:08 10/28/19 25 10/28/2024 CMP (MALE ) BUN/creatini ne ratio 14.62 ratio Not Available [facility] [address] [place] [facility], [place], [address], 10/28/2024 15:56:08 10/28/19 25 10/28/2024 CMP (MALE ) eGFR calculated 58.2 Not Available [facility] [address] [place] [facility], [place], [address], 10/28/2024 15:56:08 10/28/19 25 10/28/2024 CMP (MALE ) total protein 7.8 g/dL 6.0-8. 5 Not Available [facility] [address] [place] [facility], [place], [address], 10/28/2024 15:56:08 10/28/19 25 10/28/2024 CMP (MALE ) total bilirubin 0.5 mg/dL 0.2-1. 3 Not Available [facility] [address] [place] [address] [facility] 1, [place], [address], 10/28/2024 15:56:08 10/28/19 25 10/28/2024 CMP (MALE ) albumin 4.5 g/dL 3.5-5. 5 Not Available [facility] [address] [facility] 1, [place], [address], 10/28/2024 15:56:08 10/28/19 25 10/28/2024 CMP (MALE ) globulin 3.3 calc Not Available [facility] [address] [place] [address] [facility] 1, [place], [address], 10/28/2024 15:56:08 10/28/19 25 10/28/2024 CMP (MALE ) AST (SGOT) 26.0 U/L 0.0-46 .0 Not Available [facility] [address] [facility] 1, [place], [address], 10/28/2024 15:56:08 10/28/19 25 10/28/2024 CMP (MALE ) altv (SGPT) 24.0 U/L 13.0-6 9.0 normal Not Available [facility] [address] [facility] 1, [place], [address], 10/28/2024 15:56:08 10/28/19 25 10/28/2024 CMP (MALE ) A/G ratio 1.4 ratio Not Available [facility] [address] [place] [address] [facility] 1, [place], [address], 10/28/2024 15:56:08 10/28/19 25 10/28/2024 CMP (MALE ) ALP phos 61.0 U/L 30.0-1 40.0 normal Not Available [facility] [address] [facility] 1, [place], [address], 10/28/2024 15:56:08 10/28/19 25 10/28/2024 CMP (MALE ) calcium 10.0 mg/dL 8.4-10 .5 Not Available [facility] [address] [place] [address] [facility] 1, [place], [address], 10/28/2024 15:56:08 10/28/19 25 10/28/2024 CMP (MALE ) sodium 140.0 mmol/ L 136.0- 145.0 Not Available [facility] [address] [facility] 1, [place], [address], 10/28/2024 15:56:08 10/28/19 25 10/28/2024 CMP (MALE ) potassium 4.7 mmol/ L 3.5-5. 1 Not Available [facility] [address] [facility] 1, [place], [address], 10/28/2024 15:56:08 10/28/19 25 10/28/2024 CMP (MALE ) chloride 105.0 mmol/ L 98.0-1 10.0 normal Not Available [facility] [address] [address], [place], [address], 10/28/2024 15:56:08 10/28/19 25 10/28/2024 CMP (MALE ) C02 24.0 mmol/ L 22.0-3 1.0 Not Available [facility] [address] [address], [place], [address], 10/28/2024 15:56:08 10/28/19 25 10/28/2024 CMP (MALE ) anion gap 11.0 calc Not Available [facility] [address] [address], [place], [address], 10/28/2024 15:56:08 10/28/19 25 10/28/2024 CMP (MALE ) osmolality 292.9 calc Not Available [facility] [address] [facility] 1, [place], [address], 10/28/2024 15:56:08 10/28/19 25 10/29/2024 TESTO STERO [...] op tube with no gel. Not Available [facility] [address] [place], [address], 10/29/2024 06:04:34 10/28/19 25 10/29/2024 ESTRA DIOL [...] is recom stefani d (orde r code 01940 ). Chano velasquez note: patie nts being [...] s. [facility] order code 80444 -Estr adiol , Ultra sensi tive LC/MS /MS demon strat es negli gible cross react ivity with fulve stran t. Not Available [facility] [address] [place], [address], 10/29/2024 06:04:35 Result Notes None recorded. Problems Name Problem SNOMED Code Status Onset Date Resolution Date Notes Provider Name and Address Organization Details Recorded Time Benign essentia l hyperten gavino 8274019 Active 2021 Hyperten gavino; Impressi on: Blood pressure has been elevated at home, so we will increase his bisoprol ol/hctz to 2 tabs daily. May need to consider increasi ng lisinopr il if higher dose of his other meds are not well tolerate d. continue to monitor bp at home.; Recorded 08/14/20 22 9:44AM by Eugenia Escalona Historic al Summary; Promoted ; acuity set as *; EUGENIA garrett [facility] 3 14:13:19 Colostom y present 184172309 Active 2022 EUGENIA garrett [facility] 3 14:13:24 Malignan t tumor of colon 276902018 Active 2022 EUGENIA garrett [facility] 3 14:13:08 Pressure injury of buttock 485318484 Completed 202212/10/2024 Camila garrett [facility] 5 14:40:59 Neuropat hy 686413820 Active 2022 EUGENIA garrett [facility] 3 14:13:11 Pressure injury of sacral region of back stage III Completed 202212/10/2024 Camila garrett [facility] 5 14:40:43 Insomnia 192474697 Completed 202212/10/2024 Camila garrett [facility] 5 14:41:37 Hypercho lesterol emia 43697049 Active 2022 EUGENIA garrett [facility] 3 14:27:31 Dermatos is of scalp 356223234 Completed 202212/10/2024 Camila Monteiro gerry, [facility] 14:41:10 Hypergly cemia 14328695 Active 2022 EUGENIA ESCALONA null, [facility] 14:27:24 Obesity 779166774 Active 2022 EUGENIA ESCALONA null, [facility] 14:27:40 Gout 01064221 Completed 202312/10/2024 Camila Monteiro gerry, [facility] 14:45:57 Atrial fibrilla tion 58518698 Active 2023 SURESH OLIVEIRA null, [facility] 5 15:45:28 Abnormal gait 55517468 Completed 202312/10/2024 Camila Monteiro [facility], [facility] 5 14:47:55 Pressure injury of sacral region of back 015167949 Completed 202312/10/2024 Camila garrett, [facility] 14:43:51 Metastat ic malignan t neoplasm to liver 11977873 Active 2023 Camila garrett, [facility] 5 14:44:57 Congesti ve heart failure 95480130 Active 2023 Camila garrett, [facility] 14:46:27 Intestin al obstruct ion 24144361 Completed 202312/10/2024 Camila garrett, [facility] 14:45:07 Obstruct fatemeh sleep apnea syndrome 57018325 Active 2023 Camila garrett, [facility] 14:43:22 Acute prostati tis 31365152 Completed 202312/10/2024 Camila garrett, [facility] 14:47:39 Cellulit is of toe of right foot Completed 202312/10/2024 [facility] 14:46:59 Onychomy cosis of toenails 638646840 Active 2023 [facility] 14:43:35 Clostrid ioides difficil e infectio n 537803092 Completed 202312/10/2024 [facility] 14:46:20 Syncope 752314511 Completed 202312/10/2024 [facility] 14:43:10 Mild intermit tent asthma 529435203 Active 2023 [facility] 14:44:49 Chronic pain 14384962 Active 2023 [facility] 14:46:45 Neoplasm of uncertai n behavior of skin 81306352 Active 2024 Camila Monteiro gerry [facility] 14:44:38 Sebaceou s cyst of skin 603389516 Active 2024 Camila garrett [facility] 14:45:20 Small bowel obstruct ion 650801566 Active 2024 Camila garrett, [facility] 5 11:39:15 Gastriti s 8932890 Active 2024 Sherlyn Álvarez MD [address] [place] [address], [phone] , [facility] 5 14:59:09 Orthosta tic hypotens ion 38175430 Active 2024 Sherlyn Álvarez MD [address] [place] [address], [phone] , [facility] 5 12:18:18 Septic shock 50673920 Active 2024 SURESH garrett [facility] 5 15:45:25 Cardiac enzyme or marker above referenc e range 351680038 Active 2024 [facility] 5 15:45:26 Primary malignan t neoplasm of colon 92338624 Active 2024 SURESH OLIVEIRA [facility] 5 15:45:30 Testoste peyman level below referenc e range 069171808 Active 2024 [facility] 5 16:10:13 Problem Notes None recorded. Procedures Surgical History Date Name Laterality Status Provider Name and Address Organization Details Recorded Time 01/09/20 24 Colonoscopy completed EUGENIA IQRA [facility] 01/14/2024 08:07:37 correction of scoliosis completed Camila Monteiro [facility] 10/28/2024 12:38:17 arthroplasty of left wrist completed Camila Monteiro [facility] 10/28/2024 12:38:36 arthroplasty of left ankle completed Camilarani Monteiro [facility] 10/28/2024 12:38:51 Colon Surgery completed [facility] 10/28/2024 12:39:43 Back Surgery completed [facility], [facility] 10/28/2024 12:40:18 lithotripsy completed [facility], [facility] 10/28/2024 12:40:57 Cataract Surgery completed [facility], [facility] 10/28/2024 12:41:08 Appendectomy completed [facility] 06/05/2023 14:12:46 Imaging Results None recorded. Procedure Notes None recorded. Medical Equipment None Reported. Allergies Allergen ID Allergen Name Allergen Category Reaction Reaction Severity Criticality Documentation Date Start Date Code Code System Note Provider Name and Address Organization Details Recorded Time 2185 Demerol medicatio n Not available Not available Not available 01/23/2023 52096 1 RxNorm EUGENIA STEWARTAma garrett [facility] 3 11:01:13 96917 meperidin e medicatio n Not available Not available Not available 06/18/2023 6754 RxNorm EUGENIA ESCALONA gerry [facility] 4 12:13:04 83490 acetamino phen medicatio n Not available Not available Not available 06/18/2023 161 RxNorm EUGENIA ESCALONA gerry [facility] 4 12:12:26 05597 morphine medicatio n Not available Not available Not available 06/18/2023 7052 RxNorm DINO ALVARADORani garrett [facility] 3 10:02:08 82313 Eliquis medicatio n headache severe Not available 06/18/2023 58216 36 RxNorm DINO garrett [facility], [place] 3 10:02:44 Medications Name Sig Start Date Stop Date Status Note LastModified by Organization Details LastModified Time [facility] Lisinopri l 5 mg tablet daily 07/01 completed 0; Recorded 05/18/20 22 9:10AM by Eugenia Escalona, Office Visit; Not Available Not Available Not [...] Available ondansetr on HCl 8 mg tablet 03/03 completed Not Available Not Available Not Available sucralfat e 1 gram tablet Take 1 tablet 3 times a day by oral route with meal(s). 2024 active Not Available Not Available Not Avai lable lisinopri l 20 mg tablet TAKE 1 TABLET BY MOUTH EVERY DAY 01/23 completed Not Available Not Available Not Available lovastati n 40 mg tablet TAKE 1 TABLET BY MOUTH ONCE DAILY active Not Available Not Available No t Available midodrine 5 mg tablet Take 1 tablet every day by oral route. 2024 active Not Available Not Available Not Avai lable clobetaso l 0.05 % topical cream APPLY CREAM TOPICALL Y TWICE DAILY TO HANDS NEEDED. AVOID FACE, GROIN, AND SKINFOLD S. USE NO MORE THAN 2 WEEKS PER MONTH. active Not Available Not Available No t Available potassium chloride ER 10 mEq tablet,ex [...] Available prochlorp erazine maleate 10 mg tablet TAKE 1 TABLET BY MOUTH EVERY 6 HOURS NEEDED FOR NAUSEA OR VOMITING . USE FIRST FOR NAUSEA. active Not Available Not Available No t Available ciproflox acin 500 mg tablet TAKE [...] completed Not Available Not Available Not Available pantopraz ole 40 mg tablet,de layed release Take 1 tablet every day by oral route. 2024 active Not Available Not Available Not Avai lable trazodone 150 mg tablet TAKE 2 TABLETS [...] TABLET BY MOUTH ONCE DAILY NEEDED FOR SWELLING active Not Available Not Available No t [...] Available Not Available oxycodone 5 mg tablet Take 1 tablet every 6 hours by oral route as needed for 30 days. 2024 active Not Available Not Available Not Avai lable clindamyc in 1 % lotion APPLY LOTION TOPICALL Y TO AFFECTED AREA TWICE DAILY FOR 14 DAYS active Not Available Not Available No t Available [employer] Solution 0.5 % apply TO sacral wound TWICE DAILY 04/21 completed Not Available Not Available Not Available testoster one enanthate 200 mg/mL intramusc ular syringe weekly 07/01 completed Recorded 08/20/20 4:57PM by Sherlyn [...] 1 TABLET BY MOUTH EVERY 12 HOURS 03/03 completed Not Available Not Available Not Available bisoprolo l-hydroch lorothiaz kristofer daily 07/01 completed Recorded 08/20/20 4:57PM by Sherlyn Álvarez MD, Office Visit; Refill Quantity : 180; Tablet; Not Available Not Available Not Available lisinopri l daily 07/01 completed VO DC/tg; Recorded 10/03/19 4:33PM by Anton Brown al Summary; Refill Quantity : 0; Not Available Not Available Not Available Trazodone at bedtime 07/01 completed Recorded 08/21/20 22 2:00PM by Sherlyn Álvarez MD, Office Visit; [...] per pump act.(1.62 %) transderm al gel Apply 3 pumps every day by transder mal route for 30 days. 2024 active Not Available Not Available Not Avai lable Xarelto 20 mg tablet TAKE 1 TABLET [...] Not Available Vitals Date Recorded Body height Body mass index (BMI) Body weight Oxygen saturation Oxygen saturation in Arterial blood by Pulse oximetry Heart rate Respiratory rate Body temperature Systolic And Diastolic Provider Name and Address Organization Details Last Updated DateTime 5 193.04 cm 34.8 kg/m2 953003. 42 g 96 % 96 % 72 /min 18 /min 97.4 [degF] 110/72 mm[Hg] Camila Monteiro [facility] 5 12:33:24 Date Recorded Body height Body mass index (BMI) Body weight Body temperature Respiratory rate Heart rate Oxygen saturation Oxygen saturation in Arterial blood by Pulse oximetry Systolic And Diastolic Provider Name and Address Organization Details Last Updated DateTime 5 193.04 cm 34.3 kg/m2 576622. 05 g 97 [degF] 18 /min 76 /min 96 % 96 % 118/72 mm[Hg] Tereso Morales [facility] 5 15:23:24 Date Recorded Body height Body mass index (BMI) Body weight Body temperature Heart rate Oxygen saturation Oxygen saturation in Arterial blood by Pulse oximetry Systolic And Diastolic Provider Name and Address Organization Details Last Updated DateTime 5 193.04 cm 33.8 kg/m2 223234. 68 g 97.5 [degF] 89 /min 97 % 97 % 116/64 mm[Hg] Stephanie [facility] 5 14:32:27 Date Recorded Body height Body mass index (BMI) Body weight Heart rate Respiratory rate Body temperature Oxygen saturation Oxygen saturation in Arterial blood by Pulse oximetry Systolic And Diastolic Provider Name and Address Organization Details Last Updated DateTime 5 193.04 cm 33 kg/m2 856268. 53 g 70 /min 19 /min 98.2 [degF] 96 % 96 % 138/72 mm[Hg] SURESH [facility] 5 15:40:44 Date Recorded Body height Body mass index (BMI) Body weight Heart rate Respiratory rate Body temperature Oxygen saturation Oxygen saturation in Arterial blood by Pulse oximetry Systolic And Diastolic Provider Name and Address Organization Details Last Updated DateTime 5 193.04 cm 33 kg/m2 644745. 53 g 89 /min 18 /min 98.1 [degF] 96 % 96 % 139/88 mm[Hg] SURESH [facility] 5 14:45:08 Social History Question Answer Notes LastModified by Organizat ion Details LastModified Time Tobacco Smoking Status Former Smoker Camila garrett [facility] 10/28/2024 12:37:38 Have You Had Direct Contact, Or Contact During Intimacy, With Monkeypox Rash, Scabs, Or Body Fluids From A Person With Monkeypox? No [email or web address] Information not available 01/08/2023 What Was The Date Of Your Most Recent Tobacco Screening? 03/03/2025 [email or web address] Information not available 03/03/2025 What Is Your Current Pack Years? 10packyears [email or web address] Information not available 10/28/2024 What Is Your Relationship Status? Information not available 06/18/2023 Have You Recently Traveled Abroad? No [email or web address] Information not available 01/08/2023 Sex: Unknown Functional [...] Td(adult) unspecified formulation 8 completed Not Available [employer] 10/22/2023 14:53:20 zoster recombinant 1 completed EUGENIA garrett [facility] 07/02/2023 14:28:35 COVID-19, mRNA, LNP-S, PF, 100 mcg/0.5mL dose or 50 mcg/0.25mL dose 1 completed EUGENIA garrett [facility] 07/02/2023 14:28:35 COVID-19, mRNA, LNP-S, PF, 100 mcg/0.5mL dose or 50 mcg/0.25mL dose 1 completed EUGENIA garrett [facility] 07/02/2023 14:28:35 pneumococcal polysaccharide PPV23 5 completed EUGENIA garrett [facility] 07/02/2023 14:28:35 Tdap 2 completed EUGENIASA IQRA garrett [facility] 07/02/2023 14:28:35 Influenza, split virus, quadrivalent, PF 8 completed EUGENIASA IQRA garrett [facility] 07/02/2023 14:28:35 Influenza, adjuvanted, quadrivalent, PF 3 completed Sherlyn Álvarez MD [address] [place] [address], [phone], [facility] 07/02/2023 09:42:50 Past Encounters Encounter ID Performer Location Encounter Start Date Encounter Closed Date Diagnosis/Indication Diagnosis SNOMED-CT Code Diagnosis ICD10 Code Diagnosis Note [id number] Mihir Frias DO [facility] [address] [place] [id number] 01/08/2023 09:24:21 01/15/2023 11:43:40 Hospital inpatient stay within past 30 days 9697419110 106 Z76.89 Colostomy present 891268 009 Z93.3 Malignant tumor of colon [id number] C18.9 Paroxysmal atrial fibrillation 920021859 I48.0 [id number] Sherlyn Álvarez MD [facility] ([facility]) [address] [place] [address] 44326-319 5 01/23/2023 10:54:20 01/23/2023 14:55:14 Pressure injury of buttock 938568774 L89.309 Macerated skin 6192862 R 23.8 Malignant tumor of colon 217763706 C18.9 oncology referral to be sent. He had positive lymph nodes. Colostomy present 986690 009 Z93.3 continue home health and ostomy management . Hospital i npatient stay within past 30 days [id number] 106 Z76.89 Neuropathy 808672831 G62 .9 restart gabapentin . Pressure i njury of sacral region of back stage III [id number] 5109 L89.229 [id number] Sherlyn Álvarez MD [facility] ([facility]) [address] [place] [address] 64055-806 5 07/01/2023 10:36:04 07/02/2023 15:31:00 Insomnia 921635730 G47.00 Refill provided for trazodone. Hypercholesterolemia 136 35889 E78.00 Check lipid panel. Continue statin. Dermatosis of scalp 4026 54152 L98.9 Ketoconazo le continues to work to control his scalp issues. Hyperglycemia 84965230 R 73.9 A1c was checked today and was 5.7%. Active or passive immunization 514556433 Z23 Benign ess ential hypertension 3864797 I10 Colostomy present 255659 009 Z93.3 continue home health and ostomy management . Neuropathy 584208388 G62 .9 restart gabapentin . Body mass index 40+ - severely obese 695976883 Z68.41 [id number] Sherlyn Álvarez MD [facility] ([facility]) [address] [place] [address] 87176-869 5 10/22/2023 14:52:41 10/22/2023 15:30:25 Gout 93839244 M10.9 Benign ess ential hypertension 4609701 I10 Colostomy present 889766 009 Z93.3 continue home health and ostomy management . Hypercholesterolemia 136 19568 E78.00 Check lipid panel. Continue statin. Malignant tumor of colon 484015327 C18.9 oncology referral to be sent. He had positive lymph nodes. Body mass index 40+ - severely obese 042505613 Z68.41 Atrial fibrillation 4943 6004 I48.91 Insomnia 065860999 G47.0 0 Refill provided for trazodone. Abnormal gait 88220216 R 26.2 Impaired mobility 484102 05 Z74.09 Dependence on enabling machine or device 918480558 Z99.89 Pressure i njury of sacral region of back 564698907 L89.153 Metastatic malignant neoplasm to liver 28127173 C78.7 Congestive heart failure 38417332 I50.9 Intestinal obstruction 39107683 K56.609 Patient has recovered from his bowel obstructio n. Return to normal follow-ups for his chronic medical issues. [id number] Sherlyn Álvarez MD [facility] ([facility]) [address] [place] [address] 87870-575 5 02/21/2024 15:48:07 02/21/2024 16:42:39 Obstructive sleep apnea syndrome 59706142 G47.33 Continue with recommenda tions for BiPAP. Currently no further interventi on is needed to get this done, just waiting on approval. Atrial fibrillation 4943 6004 I48.91 Recommend the patient continue to proceed with Xarelto. Metastatic malignant neoplasm to liver 91771533 C78.7 Patient needs to follow-up with oncology given potential new lesion in his liver. [id number] Sherlyn Álvarez MD [facility] ([facility]) [address] [place] [address] 06830-027 5 02/27/2024 14:39:29 02/27/2024 16:26:16 Dysuria 63350986 R30.0 UA did not demonstrat e findings suggestive of infection. Culture has been ordered. Acute prostatitis 460473 02 N41.0 History is more suggestive of acute prostatiti s based on his symptoms and report of discomfort . Will start antibiotic s for the next 2 weeks. May require longer duration depending on symptoms. [id number] Sherlyn Álvarez MD [facility] ([facility]) [address] [place] [address] 03783-618 5 03/24/2024 15:25:48 03/25/2024 09:57:04 Kidney stone 35412011 N20.0 [id number] Sherlyn Álvarez MD [facility] ([facility]) [address] [place] [address] 62829-276 5 04/21/2024 12:05:22 04/21/2024 12:45:51 Metastatic malignant neoplasm to liver 56598579 C78.7 Patient is having significan t pain, most likely from his metastasis . Will provide tramadol to help with pain. Will recheck a CEA and see if it has changed prior to his specialist visit. [id number] Sherlyn Álvarez MD [facility] ([facility]) [address] [place] [address] 38582-884 5 05/06/2024 14:00:07 05/06/2024 15:23:03 Metastatic malignant neoplasm to liver 61331966 C78.7 Patient has a care team at [facility] and they have a specific plan for the patient. Benign ess ential hypertension 1406198 I10 Controlled Atrial fibrillation 4943 6004 I48.91 Recommend the patient continue to proceed with Xarelto. Congestive heart failure 55333501 I50.9 Managed well on current medication s. Obstructiv e sleep apnea syndrome 04684191 G47.33 Continue with BiPAP. [id number] Tico Andres DO [facility] ([facility]) [address] [place] [address] 05278-818 5 05/25/2024 11:44:55 05/25/2024 12:15:43 Cellulitis of toe of right foot 7578126442 L03.031 Mild to moderate. Will start antibiotic s. Counseled on wound care. Counseled on signs symptoms worsening and treatment options. Acute prostatitis 619913 02 N41.0 possible recurrence . abx for cellulitis will treat this. Return to office with no improvemen t or any problems. Go to ER with severe worsening or severe problems. Onychomyco sis of toenails 739793841 B35.1 I counseled on all treatment options. 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 Discussed the potential for reoccurren ce. Syncope 810415368 R55 Further concerns after hospitaliz ation. Mild inter mittent asthma 092972042 J45.20 Fill provided for his albuterol inhaler. Chronic pain 52697018 G8 9.29 8-day supply of his medication s until he sees his oncologist provided. [id number] Sherlyn Álvarez MD [facility] ([facility]) [address] [place] [address] 35196-908 5 10/28/2024 12:23:12 10/28/2024 13:03:58 Neoplasm of uncertain behavior of skin 01414027 D48.5 Patient has had a significan t increase in what appears to be sebaceous keratosis. However, during the drastic change I would recommend evaluation by dermatolog y. 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 Patient is not having any new concerns but at risk for rehospital ization. [id number] Sherlyn Álvarez MD [facility] ([facility]) [address] [place] [address] 46550-928 5 03/03/2025 14:24:20 03/03/2025 15:07:17 Orthostatic hypotension 99177494 I95.1 Refill provided for his midodrine and this has been helping with his orthostati c hypotensio n. Gastritis 0809235 K29.70 Refills provided for his medication s. Symptoms are managed well. Metastatic malignant neoplasm to liver 73179717 C78.7 Patient has a care team at [facility] and they have a specific plan for the patient. [id number] Mihir Frias DO [facility] ([facility]) [address] [place] [address] 44995-492 5 03/15/2025 14:49:21 03/23/2025 11:24:25 Post-discharge follow-up 157847742 Z09 Septic shock 16527492 A4 1.9 R65.21 Cardiac en zyme or marker above reference range 727570159 R79.89 Atrial fibrillation 4943 6004 I48.91 Primary ma lignant neoplasm of colon 84124659 C79.9 C18.9 [id number] Mihir Frias DO [facility] ([facility]) [address] [place] [address] 03/24/2025 13:30:11 03/30/2025 14:12:48 Benign essential hypertension 3257030 I10 Malignant tumor of colon 364700347 C18.9 Atrial fibrillation 4943 6004 I48.91 Metastatic malignant neoplasm to liver 14261735 C78.7 Septic shock 39234512 A4 1.9 R65.21 Health Concerns Section Related Observation LastModified by Organization Detai ls LastModified Time None Recorded Concern Status LastModified by Organization Details LastModified Time None Recorded Advance Directives Directive None Recorded Payers Insurance Date Sequence Insurance Name Policy Number Policy Clemons Covered Member ID Clemons Member ID Guarantor Name 03/30/2025 1 [id number] RE[place]/A DVANTAGE - PPO) [id number] Charan Voss [id number] Charan Voss
--- OUTSIDE RECORDS SUMMARY | 2025-04-27 16:22 | XMS_ITS | Encounter Summary ---
Author Organization [facility] Address [address] [place] [address] Care Team Providers Care Logistics Coordinator Name Role Phone Favian Maldonado MD, Shant Humphreys Primary Care Provider Encounter Details Date Type Department Care Team (Late st Contact Info) Description 12/17/2022 Lab Requisition [facility] Laboratory Services [address] [place] [address] Andre Mary, MADHU [address] [facility] [address] [place] [address] Social History Tobacco Use Types Packs/Day Years Used Date Smoking Tobacco: Never Assessed Sex and Gender Information Value Date Recorded Sex Assigned at Not on file 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 Gender Identity Not on file Sexual Orientation [...] - 10.8 K/uL 12/17/2022 6:20 AM CDT [facility] RBC 3.85(L) 4.60 - 6.20 M/uL 12/17/2022 6:20 AM CDT [facility] HEMOGLOBIN 11.5(L) 14.0 - 18.0 g/dL 12/17/2022 6:20 AM [facility] HEMATOCRIT 36.6(L) 41.0 - 53.0 % 12/17/2022 6:20 AM [facility] MCV 95.1 84.0 - 103.0 fL 12/17/2022 6:20 AM [facility] MCH 29.9 27.0 - 34.0 pg 12/17/2022 6:20 AM [facility] MCHC 31.4 30.0 - 35.0 g/dL 12/17/2022 6:20 AM [facility] RDW 15.6(H) 11.0 - 14.5 % 12/17/2022 6:20 AM [facility] RDW-STDEV 54.4(H) 37.0 - 54.0 fL 12/17/2022 6:20 AM [facility] PLATELETS 282 140 - 440 K/uL 12/17/2022 6:20 AM [facility] MPV 10.7 8.9 - 12.8 fL 12/17/2022 6:20 AM [facility] NEUTROPHILS 58 42 - 75 % 12/17/2022 6:20 AM [facility] LYMPHOCYTES 22(L) 24 - 44 % 12/17/2022 6:20 AM [facility] MONOCYTES 12(H) 2 - 10 % 12/17/2022 6:20 AM [facility] EOSINOPHILS 8(H) 0 - 7 % 12/17/2022 6:20 AM [facility] BASOPHILS 1 0 - 1 % 12/17/2022 6:20 AM [facility] IMMATURE GRANULOCYTES 1 0 - 2 % 12/17/2022 6:20 AM [facility] NEUTROPHIL ABSOLUTE 4.48 2.00 - 8.00 K/uL 12/17/2022 6:20 AM [facility] LYMPHOCYTE ABSOLUTE 1.67 1.20 - 4.00 K/uL 12/17/2022 6:20 AM CDT [facility] MONOCYTE ABSOLUTE 0.90(H) 0.10 - 0.60 K/uL 12/17/2022 6:20 AM CDT [facility] EOSINOPHIL ABSOLUTE 0.61 0.00 - 0.70 K/uL 12/17/2022 6:20 AM CDT [facility] BASOPHILS ABSOLUTE 0.06 0.00 - 0.20 K/uL 12/17/2022 6:20 AM CDT [facility] IMMATURE GRANULOCYTES ABSOLUTE 0.04 0.00 - 0.10 K/uL 12/17/2022 6:20 AM CDT [facility] Blood Collection / Unknown 12/17/2022 3:30 AM CDT 12/17/2022 6:14 AM CDT us Andre Mary CONDUIT WORKER HEMATOLOGY ORDERABLES Fi nal Result Performing Organization Address City/State/[facility] Co de Phone Number [facility] CLIA # [id number] [facility] [address] documented in this encounter Visit Diagnoses Not on filedocumented in this encounter Additional Health Concerns Infection Onset Date Last Indicated Resolved Time C Diff 11/17/2022 11/17/2022 01/16/2023 1:16 AM CDT documented as of this encounter Care Teams Logistics Coordinator Relationship Specialty Start Date End Date Shant Ballesteros Jr., MD [address] [place] [address] PCP - General Family Practice 01/19/14 documented as of this encounter
--- OUTSIDE RECORDS SUMMARY | 2025-04-27 16:22 | XMS_ITS | Encounter Summary ---
Author Organization [employer] Address 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 Gender Identity Not on file Sexual [...] CBC WITH DIFFERENTIAL (12/13/2022 4:30 AM CDT) [facility] WBC 6.0 4.8 - 10.8 K/uL 12/13/2022 5:36 AM CDT [facility] RBC 3.36(L) 4.60 - 6.20 M/uL 12/13/2022 5:36 AM [facility] HEMOGLOBIN 10.3(L) 14.0 - 18.0 g/dL 12/13/2022 5:36 AM [facility] HEMATOCRIT 33.7(L) 41.0 - 53.0 % 12/13/2022 5:36 AM [facility] MCV 100.3 84.0 - 103.0 fL 12/13/2022 5:36 AM [facility] MCH 30.7 27.0 - 34.0 pg 12/13/2022 5:36 AM [facility] MCHC 30.6 30.0 - 35.0 g/dL 12/13/2022 5:36 AM [facility] RDW 15.9(H) 11.0 - 14.5 % 12/13/2022 5:36 AM [facility] RDW-STDEV 58.9(H) 37.0 - 54.0 fL 12/13/2022 5:36 AM [facility] PLATELETS 262 140 - 440 K/uL 12/13/2022 5:36 AM [facility] MPV 10.9 8.9 - 12.8 fL 12/13/2022 5:36 AM [facility] NEUTROPHILS 54 42 - 75 % 12/13/2022 5:36 AM [facility] LYMPHOCYTES 23(L) 24 - 44 % 12/13/2022 5:36 AM [facility] MONOCYTES 14(H) 2 - 10 % 12/13/2022 5:36 AM [facility] EOSINOPHILS 8(H) 0 - 7 % 12/13/2022 5:36 AM [facility] BASOPHILS 1 0 - 1 % 12/13/2022 5:36 AM [facility] IMMATURE GRANULOCYTES 1 0 - 2 % 12/13/2022 5:36 AM [facility] NEUTROPHIL ABSOLUTE 3.23 2.00 - 8.00 K/uL 12/13/2022 5:36 AM [facility] LYMPHOCYTE ABSOLUTE 1.39 1.20 - 4.00 K/uL 12/13/2022 5:[address] [facility] MONOCYTE ABSOLUTE 0.81(H) 0.10 - 0.60 K/uL 12/13/2022 5:[address] [facility] EOSINOPHIL ABSOLUTE 0.50 0.00 - 0.70 K/uL 12/13/2022 5:[address] [facility] BASOPHILS ABSOLUTE 0.04 0.00 - 0.20 K/uL 12/13/2022 5:[address] [facility] IMMATURE GRANULOCYTES ABSOLUTE 0.03 0.00 - 0.10 K/uL 12/13/2022 5:[address] [facility] Blood Collection / Unknown 12/13/2022 4:30 AM CDT 12/13/2022 5:28 AM CDT us Esther Sarmiento MD HEMATOLOGY ORDERABLES Final Resu lt [facility] CLIA # [id number] [address] [place] [place] [address] * (ABNORMAL) TESTOSTERONE FREE AND TOTAL (12/13/2022 4:30 AM CDT) [facility] TESTOSTERONE 28(L) 250 - 1100 ng/dL 12/16/2022 11:31 AM CDT [facility] Comment: Men with clinically significant hypogonadal symptoms and testosterone values repeatedly in the range of the 200-300 ng/dL or less, may benefit from testosterone treatment after adequate risk and benefits counseling. For additional information, please refer to https://education.[employer]/faq/RHV188 (This link is being provided for informational/educational purposes only.) (Note) This test was developed and its analytical performance characteristics have been determined by [facility]. It has not been cleared or approved by the FDA. This assay has been validated pursuant to the CLIA regulations and is used for clinical purposes. TESTOSTERONE FREE 4.3(L) 35.0 - 155.0 pg/mL 12/16/2022 11:31 AM CDT [facility] Comment: (Note) This test was developed and its analytical performance characteristics have been determined by [facility]. It has not been cleared or approved by the FDA. This assay has been validated pursuant to the CLIA regulations and is used for clinical purposes. [facility] [address] [place] [address],[address] [place] [id number] Manuel Tirado MD Blood Collection / Unknown 12/13/2022 4:30 AM CDT 12/13/2022 7:43 AM CDT Narrative [facility] - 12/16/2022 11:31 AM CDT Performing Organization Information: Site ID: [id number] Name: [facility] Address: [address] [place] [address], [address] [place] [address] Director: Manuel Tirado MD Esther Sarmiento MD CHEMISTRY ORDERABLES Final Resul t [facility] documented in this encounter Visit Diagnoses Not on filedocumented in this encounter Additional Health Concerns Infection Onset Date Last Indicated Resolved Time C Diff 11/17/2022 11/17/2022 01/16/2023 1:16 AM CDT documented as of this encounter Care Teams Logistics Clerk Relationship Specialty Start Date End Date Shant Ballesteros Jr., MD [address] [place] [address] PCP - General Family Practice 01/19/14 documented as of this encounter
--- OUTSIDE RECORDS SUMMARY | 2025-04-27 16:22 | XMS_ITS | Encounter Summary ---
Author Organization [facility] Address [address] [place] [address] Care Team Providers Care Cleaning Supervisor Name Role Phone Favian Maldonado MD, Shant Humphreys Primary Care Provider Reason for Referral * Outpatient Services (Routine) - Closed Specialty Diagnoses / Procedures Referred By Delfin jerome Referred To Contact Diagnoses Other nonspecific findings on examination of blood(790.99) Procedures MRI BRAIN W WO CONTRAST Shant Ballesteros Jr., MD [address] [place] [address] Phone: tel: fax: [facility] [place] CALL TO MAKE APPOINTMENT ONLY [address] [place] [address] Phone: tel: fax: Referral ID Status Reason Start Date Expiration Date V isits Requested Visits Authorized [id number] Closed F [facility] TO SCHEDULE ([facility] 01/18/2014 02/18/2015 1 1 * Outpatient Services (Routine) - Closed Specialty Diagnoses / Procedures Referred By Delfin t Referred To Contact Diagnoses Other nonspecific findings on examination of blood(790.99) Procedures MRA VENOUS HEAD WO CONTRAST Shant Ballesteros Jr., MD [address] [place] [address] Phone: tel: fax: [employer] [facility] [place] CALL TO MAKE APPOINTMENT ONLY [address] [place] [address] Phone: tel: fax: Referral ID Status Reason Start Date Expiration Date V isits Requested Visits Authorized [id number] Closed F [facility] TO SCHEDULE ([facility]) 01/18/2014 02/18/2015 1 1 Encounter Details Date Type Department Care Team (Late st Contact Info) Description 01/18/2014 Ancillary Orders [facility] [place] CALL TO MAKE APPOINTMENT ONLY [address] [place] [facility] [address] Shant Ballesteros Jr., MD [address] [place] [address] Other nonspecific findings on examination [...] No significant abnormality. Tripp - uploaded from [employer]- Narrative Procedure Note Philippe Mendiola MD - [...] No significant abnormality. Tripp - uploaded from [employer]- us Shant Ballesteros Jr., MD MR ORDERABLES [...] Impression: Unremarkable exam. CHRIS/nikki - uploaded from [employer] - Narrative Procedure Note Philippe Mendiola MD [...] Impression: Unremarkable exam. MWKleber/nikki - uploaded from [employer] - us Shant Ballesteros Jr., MD MR [...] blood documented in this encounter Care Teams Cleaning Supervisor Relationship Specialty Start Date End Date Shant Ballesteros Jr., MD [address] [place] [address] PCP - General Family Practice 01/19/14 documented as of this encounter
--- OUTSIDE RECORDS SUMMARY | 2025-04-27 16:22 | XMS_ITS | Encounter Summary ---
Author Organization [employer] Address 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 Gender Identity Not on file Sexual [...] IONIZED (12/10/2022 2:00 AM CDT) Pathologist [facility] CALCIUM IONIZED 5.4 4.7 - 5.5 mg/dL 12/11/2022 2:42 PM CDT [facility] Blood Collection / Unknown 12/10/2022 2:00 AM CDT 12/10/2022 7:02 AM CDT Narrative [facility] - 12/11/2022 2:42 PM CDT Performing Organization Information: Site ID: [id number] Name: [employer] Address: [address] [place] [address] Director: Andrew Alvarado MD Low Amaya CHEMISTRY ORDERABLES Final R esult Performing Organization Address City/[facility]/ZIP Co de Phone Number [facility] * MAGNESIUM LEVEL (12/10/2022 2:00 AM CDT) [facility] MAGNESIUM 2.0 1.6 - 2.4 mg/dL 12/10/2022 7:38 AM CDT [facility] Blood Collection / Unknown 12/10/2022 2:00 AM CDT 12/10/2022 7:02 AM CDT Low Amaya CHEMISTRY ORDERABLES Final R esult Performing Organization Address City/[facility]/ZIP Co de Phone Number [facility] CLIA # [id number] [address] [address] [place] [address] * (ABNORMAL) TRIGLYCERIDE (12/10/2022 2:00 AM CDT) [facility] TRIGLYCERIDE 202(H) <150 mg/dL 12/10/2022 7:38 AM CDT [facility] Blood Collection / Unknown 12/10/2022 2:00 AM CDT 12/10/2022 7:02 AM CDT Narrative [facility] - 12/10/2022 7:38 AM CDT TRIGLYCERIDES mg/dL Normal < 150 Borderline High 150 - 199 High 200 - 499 Very High >= 500 Based on AHA/NCEP Guidelines. Low Amaya DO CHEMISTRY ORDERABLES Final R esult Performing Organization Address City/[facility]/ZIP Co de Phone Number [facility] CLIA # [id number] [address] [address] * PHOSPHORUS (12/10/2022 2:00 AM CDT) [facility] PHOSPHORUS 3.5 2.5 - 4.5 mg/dL 12/10/2022 7:38 AM CDT [facility] Blood Collection / Unknown 12/10/2022 2:00 AM CDT 12/10/2022 7:02 AM CDT Low Amaya DO CHEMISTRY ORDERABLES Final R [facility] Performing Organization Address [facility] Co de Phone Number [facility] CLIA # [id number] [address] [address] * (ABNORMAL) CBC WITH DIFFERENTIAL (12/10/2022 2:00 AM CDT) [facility] WBC 7.0 4.8 - 10.8 K/uL 12/10/2022 7:10 AM CDT [facility] RBC 3.23(L) 4.60 - 6.20 M/uL 12/10/2022 7:10 AM CDT [facility] HEMOGLOBIN 9.7(L) 14.0 - 18.0 g/dL 12/10/2022 7:10 AM CDT [facility] HEMATOCRIT 31.3(L) 41.0 - 53.0 % 12/10/2022 7:10 AM [facility] MCV 96.9 84.0 - 103.0 fL 12/10/2022 7:10 AM [facility] MCH 30.0 27.0 - 34.0 pg 12/10/2022 7:10 AM [facility] MCHC 31.0 30.0 - 35.0 g/dL 12/10/2022 7:10 AM [facility] RDW 16.3(H) 11.0 - 14.5 % 12/10/2022 7:10 AM [facility] RDW-STDEV 58.5(H) 37.0 - 54.0 fL 12/10/2022 7:10 AM [facility] PLATELETS 236 140 - 440 K/uL 12/10/2022 7:10 AM [facility] MPV 11.2 8.9 - 12.8 fL 12/10/2022 7:10 AM [facility] NEUTROPHILS 56 42 - 75 % 12/10/2022 7:10 AM [facility] LYMPHOCYTES 20(L) 24 - 44 % 12/10/2022 7:10 AM [facility] MONOCYTES 14(H) 2 - 10 % 12/10/2022 7:10 AM [facility] EOSINOPHILS 7 0 - 7 % 12/10/2022 7:10 AM [facility] BASOPHILS 1 0 - 1 % 12/10/2022 7:10 AM [facility] IMMATURE GRANULOCYTES 1 0 - 2 % 12/10/2022 7:10 AM [facility] NEUTROPHIL ABSOLUTE 3.94 2.00 - 8.00 K/uL 12/10/2022 7:10 AM [facility] LYMPHOCYTE ABSOLUTE 1.42 1.20 - 4.00 K/uL 12/10/2022 7:10 AM [facility] MONOCYTE ABSOLUTE 1.01(H) 0.10 - 0.60 K/uL 12/10/2022 7:10 AM [facility] EOSINOPHIL ABSOLUTE 0.52 0.00 - 0.70 K/uL 12/10/2022 7:10 AM CDT [facility] BASOPHILS ABSOLUTE 0.06 0.00 - 0.20 K/uL 12/10/2022 7:10 AM CDT [facility] IMMATURE GRANULOCYTES ABSOLUTE 0.04 0.00 - 0.10 K/uL 12/10/2022 7:10 AM T [facility] Blood Collection / Unknown 12/10/2022 2:00 AM CDT 12/10/2022 7:02 AM CDT us Low Amaya DO HEMATOLOGY ORDERABLES Final Result [facility] CLIA # [id number] [address] [place] [address] * (ABNORMAL) COMPREHENSIVE METABOLIC PANEL (12/10/2022 2:00 AM CDT) SODIUM 136 136 - 145 mmol/L 12/10/2022 7:38 AM [facility] POTASSIUM 4.4 3.5 - 5.1 mmol/L 12/10/2022 7:38 AM [facility] CHLORIDE 102 98 - 107 mmol/L 12/10/2022 7:38 AM [facility] CO2 26 22 - 29 mmol/L 12/10/2022 7:38 AM [facility] CALCIUM 10.0 8.8 - 10.2 mg/dL 12/10/2022 7:38 AM [facility] BUN 35(H) 8 - 23 mg/dL 12/10/2022 7:38 AM [facility] CREATININE 0.94 0.67 - 1.17 mg/dL 12/10/2022 7:38 AM T [facility] GLUCOSE 117(H) 74 - 99 mg/dL 12/10/2022 7:38 AM [facility] TOTAL PROTEIN 7.0 6.4 - 8.3 g/dL 12/10/2022 7:38 AM T [facility] ALBUMIN 3.3(L) 3.5 - 5.2 g/dL 12/10/2022 7:38 AM T [facility] BILIRUBIN TOTAL 0.2 0.2 - 1.0 mg/dL 12/10/2022 7:38 AM T [facility] ALKALINE PHOSPHATASE 113 40 - 129 U/L 12/10/2022 7:38 AM T [facility] AST 17 10 - 50 U/L 12/10/2022 7:38 AM T [facility] ALT 16 <=50 U/L 12/10/2022 7:38 AM T [facility] GFR >60 >=60 mL/min/1.7 3 sq meter 12/10/2022 7:38 AM [facility] Comment:eGFR calculated with 2020 CKD-EPI equation. Vegetarian diet, extremely high or low muscle mass, and may affect results. Cystatin C with Glomerular Filtration Rate is a suitable alternative for these patients. ANION GAP 8(L) 9 - 20 mmol/L 12/10/2022 7:38 AM T [facility] Blood Collection / Unknown 12/10/2022 2:00 AM CDT 12/10/2022 7:02 AM CDT Low Amaya DO CHEMISTRY ORDERABLES Final R esult [facility] CLIA # [id number] [address] [address] documented in this encounter Visit Diagnoses Not on filedocumented in this encounter Additional Health Concerns Infection Onset Date Last Indicated Resolved Time C Diff 11/17/2022 11/17/2022 01/16/2023 1:16 AM CDT documented as of this encounter Care Teams Manager Nc Relationship Specialty Start Date End Date Shant Ballesteros Jr., MD [address] [place] [address] PCP - General Family Practice 01/19/14 documented as of this encounter
--- OUTSIDE RECORDS SUMMARY | 2025-04-27 16:22 | XMS_ITS | Encounter Summary ---
Author Organization [employer] Address 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 Gender Identity Not on file Sexual Orientation Not on file documented as of this encounter Plan of Treatment Not on file documented as of this encounter Procedures Procedure Name Priority Date/Time Associated Diagnosis Comments PHOSPHORUS Routine 12/07/2022 3:30 AM COMPUTER PROJECT MANAGER MAGNESIUM LEVEL Routine 12/07/2022 3:30 AM COMPUTER PROJECT MANAGER BASIC METABOLIC PANEL Routine 12/07/2022 3:30 AM COMPUTER PROJECT MANAGER documented in this encounter Results * (ABNORMAL) PHOSPHORUS (12/07/2022 3:30 AM COMPUTER PROJECT MANAGER) PHOSPHORUS 4.7(H) 2.5 - 4.5 mg/dL 12/07/2022 5:41 AM COMPUTER PROJECT MANAGER [facility] Blood Collection / Unknown 12/07/2022 3:30 AM COMPUTER PROJECT MANAGER 12/07/2022 5:10 AM COMPUTER PROJECT MANAGER Low Monique DO CHEMISTRY ORDERABLES Final R esult Performing Organization Address City/[facility]/ZIP Co de Phone Number [facility] CLIA # [id number] [id number] [place] [address] * MAGNESIUM LEVEL (12/07/2022 3:30 AM COMPUTER PROJECT MANAGER) MAGNESIUM 1.9 1.6 - 2.4 mg/dL 12/07/2022 5:41 AM [facility] Blood Collection / Unknown 12/07/2022 3:30 AM COMPUTER PROJECT MANAGER 12/07/2022 5:10 AM COMPUTER PROJECT MANAGER Low Amaya DO CHEMISTRY ORDERABLES Final R esult Performing Organization Address City/[facility]/ZIP Co de Phone Number [facility] CLIA # [id number] [address] [place] [address] * (ABNORMAL) BASIC METABOLIC PANEL (12/07/2022 3:30 AM COMPUTER PROJECT MANAGER) SODIUM 137 136 - 145 mmol/L 12/07/2022 5:41 AM [facility] [employer] [facility] POTASSIUM 4.2 3.5 - 5.1 mmol/L 12/07/2022 5:41 AM [facility] [employer] [facility] CHLORIDE 103 98 - 107 mmol/L 12/07/2022 5:41 AM [facility] [employer] [facility] CO2 26 22 - 29 mmol/L 12/07/2022 5:41 AM [facility] CALCIUM 9.5 8.8 - 10.2 mg/dL 12/07/2022 5:41 AM [facility] [employer] [facility] BUN 36(H) 8 - 23 mg/dL 12/07/2022 5:41 AM [facility] CREATININE 0.95 0.67 - 1.17 mg/dL 12/07/2022 5:41 AM [facility] GLUCOSE 102(H) 74 - 99 mg/dL 12/07/2022 5:41 AM [facility] GFR >60 >=60 mL/min/1.7 3 sq meter 12/07/2022 5:41 AM [facility] Comment:eGFR calculated with 2020 CKD-EPI equation. Vegetarian diet, extremely high or low muscle mass, and may affect results. Cystatin C with Glomerular Filtration Rate is a suitable alternative for these patients. ANION GAP 8(L) 9 - 20 mmol/L 12/07/2022 5:41 AM [facility] Blood Collection / Unknown 12/07/2022 3:30 AM COMPUTER PROJECT MANAGER 12/07/2022 5:10 AM COMPUTER PROJECT MANAGER Low Amaya DO CHEMISTRY ORDERABLES Final R esult [facility] CLIA # [id number] [address] [place] [address] documented in this encounter Visit Diagnoses Not on filedocumented in this encounter Additional Health Concerns Infection Onset Date Last Indicated Resolved Time C Diff 11/17/2022 11/17/2022 01/16/2023 1:16 AM CDT documented as of this encounter Care Teams Recreation Officer Relationship Specialty Start Date End Date Shant Ballesteros Jr., MD [address] [place] [address] PCP - General Family Practice 01/19/14 documented as of this encounter
--- OUTSIDE RECORDS SUMMARY | 2025-04-27 16:22 | XMS_ITS | Encounter Summary ---
Author Organization [employer] [facility] Address 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 Gender Identity Not on file Sexual Orientation [...] 136 - 145 mmol/L 12/20/2022 6:20 AM [facility] POTASSIUM 5.4(H) 3.5 - 5.1 mmol/L 12/20/2022 6:20 AM [facility] CHLORIDE 97(L) 98 - 107 mmol/L 12/20/2022 6:20 AM [facility] CO2 26 22 - 29 mmol/L 12/20/2022 6:20 AM [facility] CALCIUM 10.2 8.8 - 10.2 mg/dL 12/20/2022 6:20 AM [facility] BUN 42(H) 8 - 23 mg/dL 12/20/2022 6:20 AM [facility] CREATININE 1.10 0.67 - 1.17 mg/dL 12/20/2022 6:20 AM [facility] GLUCOSE 120(H) 74 - 99 mg/dL 12/20/2022 6:20 AM [facility] TOTAL PROTEIN 7.4 6.4 - 8.3 g/dL 12/20/2022 6:20 AM [facility] ALBUMIN 3.6 3.5 - 5.2 g/dL 12/20/2022 6:20 AM [facility] BILIRUBIN TOTAL 0.2 0.2 - 1.0 mg/dL 12/20/2022 6:20 AM [facility] ALKALINE PHOSPHATASE 103 40 - 129 U/L 12/20/2022 6:20 AM [facility] AST 27 10 - 50 U/L 12/20/2022 6:20 AM [facility] ALT 34 <=50 U/L 12/20/2022 6:20 AM [facility] GFR >60 >=60 mL/min/1.7 3 sq meter 12/20/2022 6:20 AM [facility] Comment:eGFR calculated with 2020 CKD-EPI equation. Vegetarian diet, extremely high or low muscle mass, and may affect results. Cystatin C with Glomerular Filtration Rate is a suitable alternative for these patients. ANION GAP 11 9 - 20 mmol/L 12/20/2022 6:20 AM T [facility] Blood Collection / Unknown 12/20/2022 1:20 AM CDT 12/20/2022 6:05 AM CDT us Deborah Aguilar MD CHEMISTRY ORDERABLES Final Resu lt [facility] CLIA # [id number] [address] [address] [place] [address] * (ABNORMAL) CBC WITH DIFFERENTIAL (12/20/2022 1:20 AM CDT) WBC 7.9 4.8 - 10.8 K/uL 12/20/2022 6:09 AM T [facility] RBC 3.74(L) 4.60 - 6.20 M/uL 12/20/2022 6:09 AM T [facility] HEMOGLOBIN 11.4(L) 14.0 - 18.0 g/dL 12/20/2022 6:09 AM T [facility] HEMATOCRIT 35.9(L) 41.0 - 53.0 % 12/20/2022 6:09 AM [facility] MCV 96.0 84.0 - 103.0 fL 12/20/2022 6:09 AM T [facility] MCH 30.5 27.0 - 34.0 pg 12/20/2022 6:09 AM T [facility] MCHC 31.8 30.0 - 35.0 g/dL 12/20/2022 6:09 AM T [facility] RDW 15.5(H) 11.0 - 14.5 % 12/20/2022 6:09 AM [facility] RDW-STDEV 55.0(H) 37.0 - 54.0 fL 12/20/2022 6:09 AM [facility] PLATELETS 279 140 - 440 K/uL 12/20/2022 6:09 AM T [facility] MPV 10.5 8.9 - 12.8 fL 12/20/2022 6:09 AM T [facility] NEUTROPHILS 54 42 - 75 % 12/20/2022 6:09 AM T [facility] LYMPHOCYTES 22(L) 24 - 44 % 12/20/2022 6:09 AM T [facility] MONOCYTES 13(H) 2 - 10 % 12/20/2022 6:09 AM T [facility] EOSINOPHILS 10(H) 0 - 7 % 12/20/2022 6:09 AM T [facility] BASOPHILS 1 0 - 1 % 12/20/2022 6:09 AM T [facility] IMMATURE GRANULOCYTES 1 0 - 2 % 12/20/2022 6:09 AM [facility] NEUTROPHIL ABSOLUTE 4.27 2.00 - 8.00 K/uL 12/20/2022 6:09 AM T [facility] LYMPHOCYTE ABSOLUTE 1.72 1.20 - 4.00 K/uL 12/20/2022 6:09 AM T [facility] MONOCYTE ABSOLUTE 0.99(H) 0.10 - 0.60 K/uL 12/20/2022 6:09 AM [facility] EOSINOPHIL ABSOLUTE 0.76(H) 0.00 - 0.70 K/uL 12/20/2022 6:09 AM [facility] BASOPHILS ABSOLUTE 0.06 0.00 - 0.20 K/uL 12/20/2022 6:09 AM [facility] IMMATURE GRANULOCYTES ABSOLUTE 0.05 0.00 - 0.10 K/uL 12/20/2022 6:09 AM [facility] Blood Collection / Unknown 12/20/2022 1:20 AM CDT 12/20/2022 6:05 AM CDT us Deborah Aguilar MD HEMATOLOGY ORDERABLES Final Res ult [facility] # [id number] [address] [address] [place] [address] documented in this encounter Visit Diagnoses Not on filedocumented in this encounter Additional Health Concerns Infection Onset Date Last Indicated Resolved Time C Diff 11/17/2022 11/17/2022 01/16/2023 1:16 AM CDT documented as of this encounter Care Teams Liaison Inspection Laboratory Assistant Relationship Specialty Start Date End Date Shant Ballesteros Jr., MD [address] [place] [phone] PCP - General Family Practice 01/19/14 documented as of this encounter
--- OUTSIDE RECORDS SUMMARY | 2025-04-27 16:22 | XMS_ITS | Encounter Summary ---
Author Organization [employer] Address 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 Blood Collection / Unknown 12/09/2022 4:20 AM CDT 12/09/2022 6:15 AM CDT Esther Sarmiento MD CHEMISTRY ORDERABLES Final Resul t Performing Organization Address [facility] Co de Phone Number [facility] CLIA # [id number] [address] [address] * MAGNESIUM LEVEL (12/09/2022 4:20 AM CDT) MAGNESIUM 2.0 1.6 - 2.4 mg/dL 12/09/2022 6:34 AM CDT [facility] [employer] [facility] Blood Collection / Unknown 12/09/2022 4:20 AM CDT 12/09/2022 6:15 AM CDT Esther Sarmiento MD CHEMISTRY ORDERABLES Final Resul t Performing Organization Address [facility] Co de Phone Number [facility] [employer] [facility] CLIA # [id number] [address] [address] * (ABNORMAL) COMPREHENSIVE METABOLIC PANEL (12/09/2022 4:20 AM CDT) SODIUM 136 136 - 145 mmol/L 12/09/2022 6:34 AM CDT [facility] [employer] [facility] POTASSIUM 4.2 3.5 - 5.1 mmol/L 12/09/2022 6:34 AM CDT [facility] [employer] [facility] CHLORIDE 103 98 - 107 mmol/L 12/09/2022 6:34 AM CDT [facility] CO2 27 22 - 29 mmol/L 12/09/2022 6:34 AM CDT [facility] [employer] [facility] CALCIUM 9.8 8.8 - 10.2 mg/dL 12/09/2022 6:34 AM CDT [facility] [employer] [facility] BUN 34(H) 8 - 23 mg/dL 12/09/2022 6:34 AM CDT [facility] CREATININE 0.89 0.67 - 1.17 mg/dL 12/09/2022 6:34 AM T [facility] GLUCOSE 136(H) 74 - 99 mg/dL 12/09/2022 6:34 AM T [facility] TOTAL PROTEIN 7.2 6.4 - 8.3 g/dL 12/09/2022 6:34 AM [facility] ALBUMIN 3.4(L) 3.5 - 5.2 g/dL 12/09/2022 6:34 AM T [facility] BILIRUBIN TOTAL 0.2 0.2 - 1.0 mg/dL 12/09/2022 6:34 AM [facility] ALKALINE PHOSPHATASE 116 40 - 129 U/L 12/09/2022 6:34 AM [facility] AST 16 10 - 50 U/L 12/09/2022 6:34 AM [facility] ALT 17 <=50 U/L 12/09/2022 6:34 AM [facility] GFR >60 >=60 mL/min/1.7 3 sq meter 12/09/2022 6:34 AM [facility] Comment:eGFR calculated with 2020 CKD-EPI equation. Vegetarian diet, extremely high or low muscle mass, and may affect results. Cystatin C with Glomerular Filtration Rate is a suitable alternative for these patients. ANION GAP 6(L) 9 - 20 mmol/L 12/09/2022 6:34 AM [facility] Blood Collection / Unknown 12/09/2022 4:20 AM CDT 12/09/2022 6:15 AM CDT us Esther Sarmiento MD CHEMISTRY ORDERABLES Final Resul t [facility] CLIA # [id number] [address] [address] documented in this encounter Visit Diagnoses Not on filedocumented in this encounter Additional Health Concerns Infection Onset Date Last Indicated Resolved Time C Diff 11/17/2022 11/17/2022 01/16/2023 1:16 AM CDT documented as of this encounter Care Teams Mallet And Die Cutter Relationship Specialty Start Date End Date Shant Ballesteros Jr., MD [address] [place] [address] PCP - General Family Practice 01/19/14 documented as of this encounter
--- OUTSIDE RECORDS SUMMARY | 2025-04-27 16:22 | XMS_ITS | Encounter Summary ---
Author Organization [facility] Address 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 Gender Identity Not on file Sexual Orientation Not on file documented as of this encounter Plan of Treatment Not on file documented as of this encounter Procedures Procedure Name Priority Date/Time Associated Diagnosis Comments CBC WITH DIFFERENTIAL Routine 12/06/2022 4:50 PM SALESPERSON FASHION ACCESSORIES documented in this encounter Results * (ABNORMAL) CBC WITH DIFFERENTIAL (12/06/2022 4:50 PM SALESPERSON FASHION ACCESSORIES) WBC 7.0 4.8 - 10.8 K/uL 12/06/2022 6:27 PM SALESPERSON FASHION ACCESSORIES [facility] RBC 3.23(L) 4.60 - 6.20 M/uL 12/06/2022 6:27 PM SALESPERSON FASHION ACCESSORIES [facility] HEMOGLOBIN 9.6(L) 14.0 - 18.0 g/dL 12/06/2022 6:27 PM [facility] HEMATOCRIT 31.3(L) 41.0 - 53.0 % 12/06/2022 6:27 PM [facility] MCV 96.9 84.0 - 103.0 fL 12/06/2022 6:27 PM [facility] MCH 29.7 27.0 - 34.0 pg 12/06/2022 6:27 PM [facility] MCHC 30.7 30.0 - 35.0 g/dL 12/06/2022 6:27 PM [facility] RDW 16.9(H) 11.0 - 14.5 % 12/06/2022 6:27 PM [facility] RDW-STDEV 60.0(H) 37.0 - 54.0 fL 12/06/2022 6:27 PM [facility] PLATELETS 247 140 - 440 K/uL 12/06/2022 6:27 PM [facility] MPV 10.5 8.9 - 12.8 fL 12/06/2022 6:27 PM [facility] NEUTROPHILS 57 42 - 75 % 12/06/2022 6:27 PM [facility] LYMPHOCYTES 20(L) 24 - 44 % 12/06/2022 6:27 PM [facility] MONOCYTES 11(H) 2 - 10 % 12/06/2022 6:27 PM [facility] EOSINOPHILS 11(H) 0 - 7 % 12/06/2022 6:27 PM [facility] BASOPHILS 1 0 - 1 % 12/06/2022 6:27 PM [facility] IMMATURE GRANULOCYTES 0 0 - 2 % 12/06/2022 6:27 PM [facility] NEUTROPHIL ABSOLUTE 3.99 2.00 - 8.00 K/uL 12/06/2022 6:27 PM [facility] LYMPHOCYTE ABSOLUTE 1.43 1.20 - 4.00 K/uL 12/06/2022 6:27 PM [facility] MONOCYTE ABSOLUTE 0.77(H) 0.10 - 0.60 K/uL 12/06/2022 6:27 PM SALESPERSON FASHION ACCESSORIES [facility] EOSINOPHIL ABSOLUTE 0.76(H) 0.00 - 0.70 K/uL 12/06/2022 6:27 PM SALESPERSON FASHION ACCESSORIES [facility] BASOPHILS ABSOLUTE 0.04 0.00 - 0.20 K/uL 12/06/2022 6:27 PM SALESPERSON FASHION ACCESSORIES [facility] IMMATURE GRANULOCYTES ABSOLUTE 0.02 0.00 - 0.10 K/uL 12/06/2022 6:27 PM SALESPERSON FASHION ACCESSORIES [facility] Blood Collection / Unknown 12/06/2022 4:50 PM SALESPERSON FASHION ACCESSORIES 12/06/2022 6:16 PM SALESPERSON FASHION ACCESSORIES us Deborah Aguilar MD HEMATOLOGY ORDERABLES Final Res ult [facility] CLIA # [id number] [facility] [address] documented in this encounter Visit Diagnoses Not on filedocumented in this encounter Additional Health Concerns Infection Onset Date Last Indicated Resolved Time C Diff 11/17/2022 11/17/2022 01/16/2023 1:16 AM CDT documented as of this encounter Care Teams Collector Relationship Specialty Start Date End Date Shant Ballesteros Jr., MD [address] [place] [address] PCP - General Family Practice 01/19/14 documented as of this encounter
--- OUTSIDE RECORDS SUMMARY | 2025-04-27 16:22 | XMS_ITS | Encounter Summary ---
Author Organization [employer] [facility] Address 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 CLBRYANT # [id number] [address] [facility] [place] [place] [address] * (ABNORMAL) COMPREHENSIVE METABOLIC PANEL (12/19/2022 4:50 AM CDT) SODIUM 135(L) 136 - 145 mmol/L 12/19/2022 10:[address] [facility] POTASSIUM 5.3(H) 3.5 - 5.1 mmol/L 12/19/2022 10:[address] [facility] CHLORIDE 99 98 - 107 mmol/L 12/19/2022 10:[address] [facility] CO2 25 22 - 29 mmol/L 12/19/2022 10:[address] [facility] CALCIUM 10.4(H) 8.8 - 10.2 mg/dL 12/19/2022 10:[address] [facility] BUN 44(H) 8 - 23 mg/dL 12/19/2022 10:[address] [facility] CREATININE 1.13 0.67 - 1.17 mg/dL 12/19/2022 10:[address] [facility] GLUCOSE 116(H) 74 - 99 mg/dL 12/19/2022 10:[address] [facility] TOTAL PROTEIN 7.5 6.4 - 8.3 g/dL 12/19/2022 10:[address] [facility] ALBUMIN 3.8 3.5 - 5.2 g/dL 12/19/2022 10:[address] [facility] BILIRUBIN TOTAL <0.2(L) 0.2 - 1.0 mg/dL 12/19/2022 10:[address] [facility] ALKALINE PHOSPHATASE 111 40 - 129 U/L 12/19/2022 10:[address] [facility] AST 27 10 - 50 U/L 12/19/2022 10:[address] [facility] ALT 38 <=50 U/L 12/19/2022 10:[address] [facility] GFR >60 >=60 mL/min/1. 73 sq meter 12/19/2022 10:[address] [facility] Comment:eGFR calculated with 2020 CKD-EPI equation. Vegetarian diet, extremely high or low muscle mass, and may affect results. Cystatin C with Glomerular Filtration Rate is a suitable alternative for these patients. ANION GAP 11 9 - 20 mmol/L 12/19/2022 10:[address] [facility] Blood Collection / Unknown 12/19/2022 4:50 AM CDT 12/19/2022 10:29 AM CDT Esther Sarmiento MD CHEMISTRY ORDERABLES Final Resul t [facility] CLIA # [id number] [address] [place] [address] documented in this encounter Visit Diagnoses Not on filedocumented in this encounter Additional Health Concerns Infection Onset Date Last Indicated Resolved Time C Diff 11/17/2022 11/17/2022 01/16/2023 1:16 AM CDT documented as of this encounter Care Teams Plumber Maintenance Relationship Specialty Start Date End Date Shant Ballesteros Jr., MD [address] [place] [address] PCP - General Family Practice 01/19/14 documented as of this encounter
--- NOTE | 2025-04-27 16:23 | W.ED.FALL ---
HPI - Fall General: Chief Complaint: Fall Stated Complaint: FALL, BLOOD IN URINE Time Seen by Provider: 04/27/25 16:17 Source: patient and EMS Mode of arrival: EMS Limitations: no limitations History of Present Illness: 70-year-old male who states that he had tripped and fell backwards. He states he did land on the left side and also hit his head. Planes of headache along with neck and back pain also has some left shoulder pain. States he also hit his left knee has some mild left knee pain EMS states he was able to stand with help he rates his pain a 5 out of 10 currently denies any loss conscious. Associated symptoms-after fall: Reports neck pain; Denies abdominal pain, chest pain or headache(s) Related Data Home Medications ?Medication ?Instructions ?Recorded ?Confirmed saw palmetto 500 mg capsule 500 mg PO DAILY 11/15/20 04/14/25 gabapentin 300 mg capsule 300 mg PO TID 02/04/23 04/14/25 albuterol sulfate 90 mcg/actuation 2 puff inhalation Q4H PRN 10/08/24 04/14/25 aerosol inhaler Shortness Of Breath digoxin 125 mcg (0.125 mg) tablet 0.125 mg PO DAILY 10/08/24 04/14/25 epinephrine 0.3 mg/0.3 mL See Rx Instructions .Route .COMPLEX 10/08/24 04/14/25 injection, auto-injector oxycodone 10 mg tablet 10 mg PO Q6H PRN Pain 10/08/24 04/14/25 vancomycin 125 mg capsule 125 mg PO DAILY 12/04/24 04/14/25 clobetasol 0.05 % topical cream 1 applic topical BID PRN hands 02/09/25 04/14/25 testosterone 3 pump topical DAILY 02/09/25 04/14/25 allopurinol 300 mg tablet 300 mg PO DAILY 04/14/25 04/14/25 fruquintinib 5 mg capsule See Rx Instructions .Route .COMPLEX 04/14/25 04/14/25 (Fruzaqla) metoprolol tartrate 25 mg tablet 25 mg PO Q12H 04/14/25 04/14/25 midodrine 5 mg tablet See Rx Instructions .Route .COMPLEX 04/14/25 04/14/25 sucralfate 1 gram tablet 1 g PO BID 04/14/25 04/14/25 Previous Rx's ?Medication ?Instructions ?Recorded pantoprazole 40 mg tablet,delayed 40 mg PO QAM #60 tabs 02/12/25 release (Protonix) amiodarone 200 mg tablet 200 mg PO DAILY #30 tabs 03/11/25 aspirin 81 mg tablet,delayed 81 mg PO DAILY #30 tabs 03/11/25 release atorvastatin 40 mg tablet 40 mg PO BEDTIME #30 tabs 03/11/25 divalproex 500 mg tablet,delayed 500 mg PO TID #30 tabs 03/11/25 release (Depakote) trazodone 150 mg tablet 150 mg PO BEDTIME #30 tabs 03/11/25 Allergies Allergy/AdvReac Type Severity Reaction Status Date / Time apixaban Allergy Unknown Headaches Verified 03/12/25 07:56 blackberry Allergy Unknown ADR-Diarrhe Verified 03/12/25 07:56 a blueberry Allergy Unknown ADR-Diarrhe Verified 03/12/25 07:56 a egg Allergy Unknown DIARRHEA, Verified 03/12/25 07:56 VOMITING AND STOMACH CRAMPING raspberry Allergy Unknown ADR-Diarrhe Verified 03/12/25 07:56 a strawberry Allergy Unknown ADR-Diarrhe Verified 03/12/25 07:56 a tomato Allergy Unknown ADR-Gastrointestinal Verified 03/12/25 07:56 Upset oats Allergy DIARRHEA Verified 03/12/25 07:56 Opioids - Morphine Analogues Allergy ADR-Chest Verified 03/12/25 07:56 Pain caffeine AdvReac Unknown PALPITATION Verified 03/12/25 07:56 S apple AdvReac DIARRHEA, Verified 03/12/25 07:56 VOMITING AND CRAMPING meperidine (From Demerol) AdvReac EXCESSIVE Verified 03/12/25 07:56 SEDATION morphine AdvReac HALLUCINATI Verified 03/12/25 07:56 ONS berries Allergy Unknown Unknown Uncoded 03/12/25 07:56 FRYE Allergy Unknown Diarrhea Uncoded 03/12/25 07:56 raw tomatoes Allergy Unknown ADR-Gastrointestinal Uncoded 03/12/25 07:56 Upset Review of Systems Const: Denies: fever(s), chills, body aches or change in appetite ENMT: Denies: throat pain or dental pain Card: Denies: chest pain Resp: Denies: dyspnea GI: Denies: abdominal pain, nausea, vomiting or diarrhea Musc: Reports: neck pain, back pain and extremity pain Skin/Breast: Denies: rash Neuro: Denies: headache(s) PFSH ED PFSH: Medical History Hydrops of gallbladder Atrial fibrillation with rapid ventricular response Elevated troponin Hypotension Orthostatic hypotension Complication of ostomy Ventilator dependent Intra-abdominal abscess post-procedure Metastatic colon cancer to liver Malignant neoplasm of splenic flexure Renal hematoma Colostomy complication C. 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 (~08/2022) hospitalized in [place] Chronic sinusitis of both maxillary sinuses Gout Asperger syndrome mild Dyslipidemia Degenerative joint disease (DJD) of lumbar spine Obstructive sleep apnea Chronic low back pain Substernal goiter Asthma Restrictive lung disease due to kyphoscoliosis Suspected exposure to asbestos Allergies Right renal stone Testosterone deficiency On TRT for 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 Erectile dysfunction Opioid contract exists previous Chronic pain syndrome Surgical History Hx of bilateral cataract extraction History of colostomy (11/01/22) Colostomy revision for control of bleeding History of exploratory laparotomy (10/15/22) Exploratory laparotomy with partial colon resection and with end colostomy formation Status post left hemicolectomy (10/08/22) laparoscopic converted to open, with splenic flexure takedown and right colon mobilization, primary anastamosis History of back surgery History of shoulder surgery History of appendectomy H/O arthroscopic knee surgery H/O ankle fusion H/O wrist surgery S/P ureteral stent placement Family History Grandfather CAD (coronary artery disease) Family/Other Cancer Grandmother Dementia Stroke Mother Lung disease Other Hypertension Denies family history of Rheumatoid arthritis Diabetes Lupus Clotting disorder Hyperlipidemia Chronic kidney disease (CKD) Suicide Anesthesia complication Bleeding disorder Social History Smoking and tobacco/nicotine status: former use of tobacco/nicotine Quit status (tobacco/nicotine): has quit using Year quit tobacco: 1975 [id number] Second hand smoke exposure: Yes Alcohol intake: never Substance/Drug Use: never Lives independently: Yes Current occupational status: retired Pets and animals: Yes Do you think of yourself as: Straight/Heterosexual Current gender identity: Male Physical Exam Const: COMMON NORMALS: no acute distress, patient oriented x3 and healthy appearing HENMT: COMMON NORMALS: normocephalic HEAD & SCALP: normocephalic Eye: COMMON NORMALS: Equal, round and reactive pupils present and EOMs intact bilaterally PUPIL: Yes Equal, round and reactive pupils present Neck/C-Spine: OTHER: In c-collar Chest: COMMONS NORMALS: normal inspection of the chest and normal palpation of entire chest wall Resp: COMMON NORMALS: normal respiratory effort, No retractions, No use of accessory muscles and clear to auscultation bilaterally AUSCULTATION: clear to auscultation bilaterally Cardio: COMMON NORMALS: regular rate, regular rhythm and No murmurs present (Cardio) RATE: regular rate RHYTHM: regular rhythm GI: COMMON NORMALS: Normal to inspection, nondistended, normoactive bowel sounds present, Soft to palpation, non-tender and no masses PALPATION: Yes Soft to palpation Extremity: COMMON NORMALS: full ROM NARRATIVE EXTREMITY EXAM: Tenderness noted to left shoulder and left knee Neuro: COMMON NORMALS: patient oriented x3, moves all extremities and no focal motor deficits Psych: COMMON NORMALS: mental status grossly normal, Normal thought process present and cooperative THOUGHT PROCESS: Normal thought process present Skin: COMMON NORMALS: no rashes or lesions noted and no wounds GENERAL SKIN EXAM: no rashes or lesions noted Course Vital Signs: Vital signs: Vital Signs Temperature 98.1 F 04/27/25 16:21 Pulse Rate 86 04/27/25 16:21 Respiratory Rate 16 04/27/25 16:21 Blood Pressure 117/77 04/27/25 16:21 Pulse Oximetry 96 04/27/25 16:21 Oxygen Delivery Me thod Room Air 04/27/25 16:21 MDM - Fall Medical Decision Making Patient presents here after a fall imaging here is all normal he is able to stand he stable for discharge follow-up PCP return if worsening. Medical Records I reviewed the patient's medical records. Lab Data Radiology Impressions Cervical Spine CT 04/27/25 16:20 IMPRESSION: 1. No acute findings 2. Multilevel arthritic changes are noted. Chest/Abdomen/Pelvis CT 04/27/25 16:20 IMPRESSION: No acute findings. IMPRESSION: 1. No acute change noted 2. Stable metastatic disease involving the liver 3. A benign renal cyst or cysts have been detected. No further follow-up imaging is required. 4. Prostate enlargement with chronic bladder wall thickening COMMENTS: Consistent with the [employer]'s Incidental Findings Committee white paper (J Am Dg Radiol 2018): Any incidental renal lesion less than 1 cm or classified as too small to characterize, or any incidental cystic renal lesion characterized as simple-appearing, is likely benign. No follow-up imaging is recommended for these lesions per consensus recommendations based on imaging criteria. Head CT 04/27/25 16:20 IMPRESSION: No acute findings. Knee X-Ray 04/27/25 16:27 IMPRESSION: Arthritic changes without fracture All radiology interpretation(s) finalized by discharge Discharge Plan Discharge Patient Disposition: Home Clinical Impression: Fall, Contusion of knee Condition: Stable Prescriptions: No Action saw palmetto 500 mg capsule 500 mg PO DAILY vancomycin 125 mg capsule 125 mg PO DAILY testosterone 20.25 mg/1.25 gram (1.62 %) gel in metered-dose pump 3 pump topical DAILY clobetasol 0.05 % cream 1 applic TOPICAL BID PRN (Reason: hands) pantoprazole [Protonix] 40 mg tablet,delayed release (DR/EC) 40 mg PO QAM Qty: 60 0RF sucralfate 1 gram tablet 1 g PO BID midodrine 5 mg tablet See Rx Instructions .ROUTE .COMPLEX Rx Instructions: TAKE 1 TABLET BY MOUTH THREE TIMES DAILY. HOLD FOR SBP MORE THAN 120 MMHG. allopurinol 300 mg tablet 300 mg PO DAILY metoprolol tartrate 25 mg tablet 25 mg PO Q12H Fruzaqla 5 mg capsule See Rx Instructions .ROUTE .COMPLEX Rx Instructions: Take 1 capsule by mouth daily for 3 weeks, then off 1 week. gabapentin 300 mg capsule 300 mg PO TID digoxin 125 mcg (0.125 mg) tablet 0.125 mg PO DAILY epinephrine 0.3 mg/0.3 mL auto-injector See Rx Instructions .ROUTE .COMPLEX Rx Instructions: INJECT CONTENTS OF 1 PEN NEEDED FOR ALLERGIC REACTION albuterol sulfate 90 mcg/actuation HFA aerosol inhaler 2 puff INHALATION Q4H PRN (Reason: Shortness Of Breath) oxycodone 10 mg tablet 10 mg PO Q6H PRN (Reason: Pain) atorvastatin 40 mg Tablet 40 mg PO BEDTIME Qty: 30 0RF aspirin 81 mg Tablet,Delayed Release (Dr/Ec) 81 mg PO DAILY Qty: 30 0RF divalproex [Depakote] 500 mg tablet,delayed release (DR/EC) 500 mg PO TID Qty: 30 0RF amiodarone 200 mg tablet 200 mg PO DAILY Qty: 30 0RF trazodone 150 mg tablet 150 mg PO BEDTIME Qty: 30 0RF Discharge Orders: Discharge ED (Routine); Ordered 04/27/25 Ordered By: Donato Chance Referrals: Al Álvarez MD [Primary Care Provider, Family Practice] Discharge Diet: Advance as tolerated Discharge Activity: Resume usual activity Patient Instructions: Fall Prevention (ED) Print Language: Zambian Coding Level of Care Code ED Incoming Freight Clerk for Scarlett [facility]
--- OUTSIDE RECORDS SUMMARY | 2025-04-27 16:23 | XMS_ITS | Encounter Summary ---
Author Organization [employer] Address [address] [place] [address] Care Team Providers Care Manager Product Management Name Role Phone Favian Maldonado MD, Shant Humphreys Primary Care Provider Encounter Details Date Type Department Care Team (Late st Contact Info) Description 11/21/2022 Lab Requisition [facility] Laboratory Services [address] [place] [address] Low Amaya, DO [address] [place] [phone] Social History Tobacco Use Types Packs/Day Years Used Date Smoking Tobacco: Never Assessed Sex and Gender Information Value Date Recorded Sex Assigned at Not on file Legal 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 RESIDENTIAL 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 Gender Identity Not on file Sexual Orientation Not on file documented as of this encounter Plan of Treatment Not on file documented as of this encounter Procedures Procedure Name Priority Date/Time Associated Diagnosis Comments PHOSPHORUS Routine 11/21/2022 4:40 AM RESIDENTIAL THERAPIST MAGNESIUM LEVEL Routine 11/21/2022 4:40 AM RESIDENTIAL THERAPIST BASIC METABOLIC PANEL Routine 11/21/2022 4:40 AM RESIDENTIAL THERAPIST documented in this encounter Results * MAGNESIUM LEVEL (11/21/2022 4:40 AM RESIDENTIAL THERAPIST) MAGNESIUM 1.8 1.6 - 2.4 mg/dL 11/21/2022 5:26 AM RESIDENTIAL THERAPIST [facility] Blood Collection / Unknown 11/21/2022 4:40 AM RESIDENTIAL THERAPIST 11/21/2022 5:08 AM RESIDENTIAL THERAPIST Low Amaya DO CHEMISTRY ORDERABLES Final R esult Performing Organization Address [facility]/ZIP Co de Phone Number [facility] CLIA # [id number] [address] [place] [address] * PHOSPHORUS (11/21/2022 4:40 AM RESIDENTIAL THERAPIST) PHOSPHORUS 2.8 2.5 - 4.5 mg/dL 11/21/2022 5:26 AM [facility] Blood Collection / Unknown 11/21/2022 4:40 AM RESIDENTIAL THERAPIST 11/21/2022 5:08 AM RESIDENTIAL THERAPIST Low Amaya DO CHEMISTRY ORDERABLES Final R esult Performing Organization Address City/[facility]/ZIP Co de Phone Number [facility] CLIA # [id number] [address] [address] * (ABNORMAL) BASIC METABOLIC PANEL (11/21/2022 4:40 AM RESIDENTIAL THERAPIST) SODIUM 145 136 - 145 mmol/L 11/21/2022 5:26 AM [facility] POTASSIUM 3.5 3.5 - 5.1 mmol/L 11/21/2022 5:26 AM [facility] CHLORIDE 106 98 - 107 mmol/L 11/21/2022 5:26 AM [facility] CO2 31(H) 22 - 29 mmol/L 11/21/2022 5:26 AM [facility] CALCIUM 9.3 8.8 - 10.2 mg/dL 11/21/2022 5:26 AM [facility] BUN 29(H) 8 - 23 mg/dL 11/21/2022 5:26 AM [facility] CREATININE 0.95 0.67 - 1.17 mg/dL 11/21/2022 5:26 AM [facility] GLUCOSE 136(H) 74 - 99 mg/dL 11/21/2022 5:26 AM [facility] GFR >60 >=60 mL/min/1.7 3 sq meter 11/21/2022 5:26 AM [facility] Comment:eGFR calculated with 2020 CKD-EPI equation. Vegetarian diet, extremely high or low muscle mass, and may affect results. Cystatin C with Glomerular Filtration Rate is a suitable alternative for these patients. ANION GAP 8(L) 9 - 20 mmol/L 11/21/2022 5:26 AM [facility] Blood Collection / Unknown 11/21/2022 4:40 AM RESIDENTIAL THERAPIST 11/21/2022 5:08 AM RESIDENTIAL THERAPIST Low Amaya DO CHEMISTRY ORDERABLES Final R esult [facility] CLIA # [id number] [address] [place] [address] documented in this encounter Visit Diagnoses Not on filedocumented in this encounter Additional Health Concerns Infection Onset Date Last Indicated Resolved Time C Diff 11/17/2022 11/17/2022 01/16/2023 1:16 AM CDT documented as of this encounter Care Teams Manager Product Management Relationship Specialty Start Date End Date Shant Ballesteros Jr., MD [address] [place] [address] PCP - General Family Practice 01/19/14 documented as of this encounter
--- OUTSIDE RECORDS SUMMARY | 2025-04-27 16:23 | XMS_ITS | Encounter Summary ---
Author Organization [employer] Address 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 Blood Collection / Unknown 11/25/2022 1:40 AM KITCHEN PORTER 11/25/2022 6:02 AM KITCHEN PORTER Esther Sarmiento MD CHEMISTRY ORDERABLES Final Resul t Performing Organization Address City/State/[facility] Co de Phone Number [facility] # [id number] [address] [address] [place] [address] documented in this encounter Visit Diagnoses Not on filedocumented in this encounter Additional Health Concerns Infection Onset Date Last Indicated Resolved Time C Diff 11/17/2022 11/17/2022 01/16/2023 1:16 AM CDT documented as of this encounter Care Teams Mixing Roll Operator Relationship Specialty Start Date End Date Shant Ballesteros Jr., MD [address] [place] [address] PCP - General Family Practice 01/19/14 documented as of this encounter
--- OUTSIDE RECORDS SUMMARY | 2025-04-27 16:23 | XMS_ITS | Encounter Summary ---
Author Organization [employer] Address [address] [place] [address] Care Team Providers Care Portable Machine Cutter Name Role Phone Favian Maldonado MD, Shant Humphreys Primary Care Provider Encounter Details Date Type Department Care Team (Late st Contact Info) Description 12/02/2022 Lab Requisition [facility] Laboratory Services [address] [place] [address] Joelle David MD [address] [facility] [address] [place], [place] [id number] Social History Tobacco Use Types Packs/Day Years Used Date Smoking Tobacco: Never Assessed Sex and Gender Information Value Date Recorded Sex Assigned at Not on file Legal 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 OLEO HASHER AND RENDERER Gender Identity Not on file Sexual Orientation Not on file documented as of this encounter Plan of Treatment Not on file documented as of this encounter Procedures Procedure Name Priority Date/Time Associated Diagnosis Comments C-REACTIVE PROTEIN Routine 12/02/2022 3: 50 AM OLEO HASHER AND RENDERER documented in this encounter Results * (ABNORMAL) C-REACTIVE PROTEIN (12/02/2022 3:50 AM OLEO HASHER AND RENDERER) CRP 19.3(H) 0.0 - 5.0 mg/L 12/02/2022 5:27 AM OLEO HASHER AND RENDERER [facility] SERVICES [facility] Blood Collection / Unknown 12/02/2022 3:50 AM OLEO HASHER AND RENDERER 12/02/2022 5:13 AM OLEO HASHER AND RENDERER Joelle David MD CHEMISTRY ORDERABLES Final Resu lt [facility] # [id number] [address] [facility] [place] [address] documented in this encounter Visit Diagnoses Not on filedocumented in this encounter Additional Health Concerns Infection Onset Date Last Indicated Resolved Time C Diff 11/17/2022 11/17/2022 01/16/2023 1:16 AM CDT documented as of this encounter Care Teams Portable Machine Cutter Relationship Specialty Start Date End Date Shant Ballesteros Jr., MD [address] [place] [address] PCP - General Family Practice 01/19/14 documented as of this encounter
--- OUTSIDE RECORDS SUMMARY | 2025-04-27 16:23 | XMS_ITS | Encounter Summary ---
Author Organization [facility] Address [address] [place] [address] Care Team Providers Care Film Historian Name Role Phone Favian Maldonado MD, Shant Humphreys Primary Care Provider Encounter Details Date Type Department Care Team (Late st Contact Info) Description 11/29/2022 Lab Requisition [facility] Laboratory Services [address] [place] [address] Andre Mary, MADHU [address] [facility] [address] [place] [address] Social History Tobacco Use Types Packs/Day Years Used Date Smoking Tobacco: Never Assessed Sex and Gender Information Value Date Recorded Sex Assigned at Not on file Legal 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 HEALTH SCIENCES DEAN Gender Identity Not on file Sexual Orientation Not on file documented as of this encounter Plan of Treatment Not on file documented as of this encounter Procedures Procedure Name Priority Date/Time Associated Diagnosis Comments CBC WITH DIFFERENTIAL Routine 11/29/2022 4:15 AM HEALTH SCIENCES DEAN documented in this encounter Results * (ABNORMAL) CBC WITH DIFFERENTIAL (11/29/2022 4:15 AM HEALTH SCIENCES DEAN) WBC 6.6 4.8 - 10.8 K/uL 11/29/2022 7:02 AM HEALTH SCIENCES DEAN [facility] RBC 2.98(L) 4.60 - 6.20 M/uL 11/29/2022 7:02 AM HEALTH SCIENCES DEAN [facility] HEMOGLOBIN 9.0(L) 14.0 - 18.0 g/dL 11/29/2022 7:02 AM [facility] HEMATOCRIT 29.9(L) 41.0 - 53.0 % 11/29/2022 7:02 AM [facility] MCV 100.3 84.0 - 103.0 fL 11/29/2022 7:02 AM [facility] MCH 30.2 27.0 - 34.0 pg 11/29/2022 7:02 AM [facility] MCHC 30.1 30.0 - 35.0 g/dL 11/29/2022 7:02 AM [facility] RDW 18.0(H) 11.0 - 14.5 % 11/29/2022 7:02 AM [facility] RDW-STDEV 65.1(H) 37.0 - 54.0 fL 11/29/2022 7:02 AM [facility] PLATELETS 226 140 - 440 K/uL 11/29/2022 7:02 AM [facility] MPV 10.5 8.9 - 12.8 fL 11/29/2022 7:02 AM [facility] NEUTROPHILS 67 42 - 75 % 11/29/2022 7:02 AM [facility] LYMPHOCYTES 13(L) 24 - 44 % 11/29/2022 7:02 AM [facility] MONOCYTES 13(H) 2 - 10 % 11/29/2022 7:02 AM [facility] EOSINOPHILS 6 0 - 7 % 11/29/2022 7:02 AM [facility] BASOPHILS 1 0 - 1 % 11/29/2022 7:02 AM [facility] IMMATURE GRANULOCYTES 1 0 - 2 % 11/29/2022 7:02 AM [facility] NEUTROPHIL ABSOLUTE 4.47 2.00 - 8.00 K/uL 11/29/2022 7:02 AM [facility] LYMPHOCYTE ABSOLUTE 0.88(L) 1.20 - 4.00 K/uL 11/29/2022 7:02 AM [facility] MONOCYTE ABSOLUTE 0.85(H) 0.10 - 0.60 K/uL 11/29/2022 7:02 AM HE[employer] SCI[employer] DEAN [facility] EOSINOPHIL ABSOLUTE 0.37 0.00 - 0.70 K/uL 11/29/2022 7:02 AM [facility] BASOPHILS ABSOLUTE 0.04 0.00 - 0.20 K/uL 11/29/2022 7:02 AM [facility] IMMATURE GRANULOCYTES ABSOLUTE 0.03 0.00 - 0.10 K/uL 11/29/2022 7:02 AM [facility] Blood Collection / Unknown 11/29/2022 4:15 AM HEALTH SCIENCES DEAN 11/29/2022 6:48 AM HE[employer] SCI[employer]ES DEAN us Andre Mary NC MANAGER HEMATOLOGY ORDERABLES Fi nal Result [facility] CLIA # [id number] [address] [place] [address] documented in this encounter Visit Diagnoses Not on filedocumented in this encounter Additional Health Concerns Infection Onset Date Last Indicated Resolved Time C Diff 11/17/2022 11/17/2022 01/16/2023 1:16 AM CDT documented as of this encounter Care Teams Film Historian Relationship Specialty Start Date End Date Shant Ballesteros Jr., MD [address] [place] [address] PCP - General Family Practice 01/19/14 documented as of this encounter
--- OUTSIDE RECORDS SUMMARY | 2025-04-27 16:23 | XMS_ITS | Encounter Summary ---
Author Organization [employer] [facility] Address [address] [place] [address] Care Team Providers Care Traveling Passenger Agent Name Role Phone Favian Maldonado MD, Shant Humphreys Primary Care Provider Encounter Details Date Type Department Care Team (Late st Contact Info) Description 11/22/2022 Lab Requisition [facility] Laboratory Services [address] [place] [address] Low Amaya, DO [address] [place] [address] Social History Tobacco Use Types Packs/Day Years Used Date Smoking Tobacco: Never Assessed Sex and Gender Information Value Date Recorded Sex Assigned at Not on file Legal 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 RETAIL VISUAL MERCHANDISER Gender Identity Not on file Sexual Orientation Not on file documented as of this encounter Plan of Treatment Not on file documented as of this encounter Procedures Procedure Name Priority Date/Time Associated Diagnosis Comments CBC WITH DIFFERENTIAL Routine 11/22/2022 4:14 AM RETAIL VISUAL MERCHANDISER documented in this encounter Results * (ABNORMAL) CBC WITH DIFFERENTIAL (11/22/2022 4:14 AM RETAIL VISUAL MERCHANDISER) WBC 6.6 4.8 - 10.8 K/uL 11/22/2022 7:49 AM RETAIL VISUAL MERCHANDISER [facility] RBC 2.65(L) 4.60 - 6.20 M/uL 11/22/2022 7:49 AM RETAIL VISUAL MERCHANDISER [facility] HEMOGLOBIN 7.9(L) 14.0 - 18.0 g/dL 11/22/2022 7:49 AM [facility] HEMATOCRIT 26.8(L) 41.0 - 53.0 % 11/22/2022 7:49 AM [facility] MCV 101.1 84.0 - 103.0 fL 11/22/2022 7:49 AM [facility] MCH 29.8 27.0 - 34.0 pg 11/22/2022 7:49 AM [facility] MCHC 29.5(L) 30.0 - 35.0 g/dL 11/22/2022 7:49 AM [facility] RDW 18.6(H) 11.0 - 14.5 % 11/22/2022 7:49 AM [facility] RDW-STDEV 66.0(H) 37.0 - 54.0 fL 11/22/2022 7:49 AM [facility] PLATELETS 298 140 - 440 K/uL 11/22/2022 7:49 AM [facility] MPV 9.8 8.9 - 12.8 fL 11/22/2022 7:49 AM [facility] NEUTROPHILS 67 42 - 75 % 11/22/2022 7:49 AM [facility] LYMPHOCYTES 14(L) 24 - 44 % 11/22/2022 7:49 AM [facility] MONOCYTES 11(H) 2 - 10 % 11/22/2022 7:[address] [facility] EOSINOPHILS 6 0 - 7 % 11/22/2022 7:[address] [facility] [place] [facility] BASOPHILS 1 0 - 1 % 11/22/2022 7:49 AM [facility] IMMATURE GRANULOCYTES 1 0 - 2 % 11/22/2022 7:49 AM [facility] NEUTROPHIL ABSOLUTE 4.40 2.00 - 8.00 K/uL 11/22/2022 7:49 AM [facility] LYMPHOCYTE ABSOLUTE 0.92(L) 1.20 - 4.00 K/uL 11/22/2022 7:49 AM [facility] MONOCYTE ABSOLUTE 0.74(H) 0.10 - 0.60 K/uL 11/22/2022 7:49 AM RETAIL VISUAL MERCHANDISER [facility] EOSINOPHIL ABSOLUTE 0.40 0.00 - 0.70 K/uL 11/22/2022 7:49 AM RETAIL VISUAL MERCHANDISER [facility] BASOPHILS ABSOLUTE 0.03 0.00 - 0.20 K/uL 11/22/2022 7:49 AM RETAIL VISUAL MERCHANDISER [facility] IMMATURE GRANULOCYTES ABSOLUTE 0.07 0.00 - 0.10 K/uL 11/22/2022 7:49 AM RETAIL VISUAL MERCHANDISER [facility] Blood Collection / Unknown 11/22/2022 4:14 AM RETAIL VISUAL MERCHANDISER 11/22/2022 7:43 AM RETAIL VISUAL MERCHANDISER Low Amaya DO HEMATOLOGY ORDERABLES Final Result Performing Organization Address City/State/[facility] Co de Phone Number [facility] CLIA # [id number] [facility] [address] documented in this encounter Visit Diagnoses Not on filedocumented in this encounter Additional Health Concerns Infection Onset Date Last Indicated Resolved Time C Diff 11/17/2022 11/17/2022 01/16/2023 1:1 6 AM CDT documented as of this encounter Care Teams Traveling Passenger Agent Relationship Specialty Start Date End Date Shant Ballesteros Jr., MD [address] [place] [address] PCP - General Family Practice 01/19/14 documented as of this encounter
--- OUTSIDE RECORDS SUMMARY | 2025-04-27 16:23 | XMS_ITS | Encounter Summary ---
Author Organization [facility] Address [address] [place] [address] Care Team Providers Care Broadcast Operations Manager Name Role Phone Favian Maldonado MD, Shant Humphreys Primary Care Provider Encounter Details Date Type Department Care Team (Late st Contact Info) Description 11/24/2022 Lab Requisition [facility] Laboratory Services [address] [place] [address] [place] [address] Andre Mary, MADHU [address] [facility] [address] [place] [address] Social History Tobacco Use Types Packs/Day Years Used Date Smoking Tobacco: Never Assessed Sex and Gender Information Value Date Recorded Sex Assigned at Not on file Legal 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 SETUP TECHNICIAN Gender Identity Not on file Sexual Orientation Not on file documented as of this encounter Plan of Treatment Not on file documented as of this encounter Procedures Procedure Name Priority Date/Time Associated Diagnosis Comments URINALYSIS W/REFLEX MICROSCOPIC Stat 11/24/2022 9:45 PM SETUP TECHNICIAN documented in this encounter Results * (ABNORMAL) URINALYSIS WITH REFLEX MICROSCOPIC (11/24/2022 9:45 PM SETUP TECHNICIAN) COLOR UA Yellow Pale to Dark Yellow 11/24/2022 11:07 PM SETUP TECHNICIAN [facility] CLARITY UA Clear Clear 11/24/2022 11:07 PM SETUP TECHNICIAN [facility] SPECIFIC GRAVITY UA 1.012 1.003 - 1.035 11/24/2022 11:07 PM [facility] PH UA 5.0 5.0 - 8.0 11/24/2022 11:07 PM [facility] LEUKOCYTE ESTERASE UA Negative Negative 11/24/2022 11:07 PM [facility] NITRITE UA Negative Negative 11/24/2022 11:07 PM [facility] PROTEIN UA Negative Negative 11/24/2022 11:07 PM [facility] GLUCOSE UA Negative Negative 11/24/2022 11:07 PM [facility] KETONES UA Negative Negative 11/24/2022 11:07 PM [facility] UROBILINOGEN UA <2.0 <2.0 mg/dL 11:07 PM [facility] BILIRUBIN UA Negative Negative 11/24/2022 11:07 PM [facility] BLOOD UA 1+(A) Negative 11/24/2022 11:07 PM [facility] WBC UA 0-2 0 - 2 /hpf 11/24/2022 11:07 PM [facility] RBC UA 0-2 0 - 2 /hpf 11/24/2022 11:07 PM [facility] BACTERIA UA Negative Negative /hpf 11/24/2022 11:07 PM [facility] EPITHELIAL CELLS, URINE 0-5 0 - 5 /hpf 11/24/2022 11:07 PM [facility] Urine URINE SPECIMEN OBTAINED BY CLEAN CATCH PROCEDURE / Unknown Collection / Unknown 11/24/2022 9:45 PM SETUP TECHNICIAN 11/24/2022 10:55 PM SETUP TECHNICIAN us Andre Mary MALTSTER URINE ORDERABLES Final R esult [facility] CLIA # [id number] [address] [id number] documented in this encounter Visit Diagnoses Not on filedocumented in this encounter Additional Health Concerns Infection Onset Date Last Indicated Resolved Time C Diff 11/17/2022 11/17/2022 01/16/2023 1:16 AM CDT documented as of this encounter Care Teams Broadcast Operations Manager Relationship Specialty Start Date End Date Shant Ballesteros Jr., MD [address] [place] [address] PCP - General Family Practice 01/19/14 documented as of this encounter
--- OUTSIDE RECORDS SUMMARY | 2025-04-27 16:23 | XMS_ITS | Encounter Summary ---
Author Organization [employer] Address [address] [place] [address] Care Team Providers Care Gum Worker Name Role Phone Favian Maldonado MD, Shant Humphreys Primary Care Provider Encounter Details Date Type Department Care Team (Late st Contact Info) Description 11/28/2022 Lab Requisition [facility] Laboratory Services [address] [place] [address] [place] [address] Low Amaya, DO [address] [place] [address] Social History Tobacco Use Types Packs/Day Years Used Date Smoking Tobacco: Never Assessed Sex and Gender Information Value Date Recorded Sex Assigned at Not on file Legal 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 METAL TECHNICIAN Gender Identity Not on file Sexual Orientation Not on file documented as of this encounter Plan of Treatment Not on file documented as of this encounter Visit Diagnoses Not on filedocumented in this encounter Additional Health Concerns Infection Onset Date Last Indicated Resolved Time C Diff 11/17/2022 11/17/2022 01/16/2023 1:16 AM CDT documented as of this encounter Care Teams Gum Worker Relationship Specialty Start Date End Date Shant Ballesteros Jr., MD [address] [place] [address] PCP - General Family Practice 01/19/14 documented as of this encounter
--- OUTSIDE RECORDS SUMMARY | 2025-04-27 16:23 | XMS_ITS | Encounter Summary ---
Author Organization [employer] [facility] Address [address] [place] [address] Care Team Providers Care Director Of Labor Relations Name Role Phone Favian Maldonado MD, Shant Humphreys Primary Care Provider Encounter Details Date Type Department Care Team (Late st Contact Info) Description 11/26/[address] [facility] Laboratory Services [address] [place] [address] [place] [address] Low Amaya, DO [address] [place] [address] Social History Tobacco Use Types Packs/Day Years Used Date Smoking Tobacco: Never Assessed Sex and Gender Information Value Date Recorded Sex Assigned at Not on file Legal 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 HAZARDOUS WASTE MATERIAL TECHNICIAN Gender Identity Not on file Sexual Orientation Not on file documented as of this encounter Plan of Treatment Not on file documented as of this encounter Procedures Procedure Name Priority Date/Time Associated Diagnosis Comments CALCIUM IONIZED Routine 11/26/2022 6:20 AM HAZARDOUS WASTE MATERIAL TECHNICIAN documented in this encounter Results * CALCIUM IONIZED (11/26/2022 6:20 AM HAZARDOUS WASTE MATERIAL TECHNICIAN) CALCIUM IONIZED 5.3 4.8 - 5.6 mg/dL 11/27/2022 9:49 AM HAZARDOUS WASTE MATERIAL TECHNICIAN [facility] Blood Collection / Unknown 11/26/2022 6:20 AM HAZARDOUS WASTE MATERIAL TECHNICIAN 11/26/2022 9:28 AM HAZARDOUS WASTE MATERIAL TECHNICIAN Narrative [facility] - 11/27/2022 9:49 AM HAZARDOUS WASTE MATERIAL TECHNICIAN Performing Organization Information: Site ID: [id number] Name: [facility] Address: [address] [address] Director: Andrew Alvarado MD us Low Amaya DO CHEMISTRY ORDERABLES Final R esult [facility] documented in this encounter Visit Diagnoses Not on filedocumented in this encounter Additional Health Concerns Infection Onset Date Last Indicated Resolved Time C Diff 11/17/2022 11/17/2022 01/16/2023 1:16 AM CDT documented as of this encounter Care Teams Director Of Labor Relations Relationship Specialty Start Date End Date Shant Ballesteros Jr., MD [address] [place] [address] PCP - General Family Practice 01/19/14 documented as of this encounter
--- OUTSIDE RECORDS SUMMARY | 2025-04-27 16:23 | XMS_ITS | Encounter Summary ---
Author Organization [employer] Address [address] [place] [address] Care Team Providers Care Concaver Name Role Phone Favian Maldonado MD, Shant Humphreys Primary Care Provider Encounter Details Date Type Department Care Team (Late st Contact Info) Description 11/25/2022 Lab Requisition [facility] Laboratory Services [address] [place] [address] [place] [address] Andre Mary, MADHU [address] [facility] [address] [place] [address] Social History Tobacco Use Types Packs/Day Years Used Date Smoking Tobacco: Never Assessed Sex and Gender Information Value Date Recorded Sex Assigned at Not on file Legal 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 COSTUME MISTRESS Gender Identity Not on file Sexual Orientation Not on file documented as of this encounter Plan of Treatment Not on file documented as of this encounter Procedures Procedure Name Priority Date/Time Associated Diagnosis Comments RESPIRATORY PATHOGEN PCR PANEL Routine 11/25/2022 9:47 AM COSTUME MISTRESS documented in this encounter Results * RESPIRATORY PATHOGEN PCR PANEL (11/25/2022 9:47 AM COSTUME MISTRESS) Respiratory Pathogen PCR Panel NOT DETECTED No respiratory pathogen nucleic acids detected. 11/25/2022 11:29 AM COSTUME MISTRESS [facility] Colppy [facility] COVID-19 PCR NOT DETECTED Not Detected 11/25/2022 11:29 AM COSTUME MISTRESS [facility] Upper Respiratory ENTIRE NASOPHARYNX / Unknown Collection / Unknown 11/25/2022 9:47 AM COSTUME MISTRESS 11/25/2022 10:36 AM COSTUME MISTRESS Narrative [facility] - 11/25/2022 11:29 AM COSTUME MISTRESS The Film Array Respiratory Panel (RP2.1) is [...] parapertussis Chlamydophila pneumoniae Mycoplasma pneumoniae Andre Mary TETRYL BOILING TUB OPERATOR MICROBIOLOGY - GENERAL O RDERABLES Final Result [id number] [address] [place] [address] documented in this encounter Visit Diagnoses Not on filedocumented in this encounter Additional Health Concerns Infection Onset Date Last Indicated Resolved Time C Diff 11/17/2022 11/17/2022 01/16/2023 1:16 AM CDT documented as of this encounter Care Teams Concaver Relationship Specialty Start Date End Date Shant Ballesteros Jr., MD [address] [place] [address] PCP - General Family Practice 01/19/14 documented as of this encounter
--- OUTSIDE RECORDS SUMMARY | 2025-04-27 16:23 | XMS_ITS | Encounter Summary ---
Author Organization [employer] Address [address] [place] [address] Care Team Providers Care Bss Solution Architect Name Role Phone Favian Maldonado MD, Shant Humphreys Primary Care Provider Encounter Details Date Type Department Care Team (Late st Contact Info) Description 12/05/2022 Lab Requisition [facility] Laboratory Services [address] [place] [address] [place] [address] Low Amaya, DO [address] [place] [phone] Social History Tobacco Use Types Packs/Day Years Used Date Smoking Tobacco: Never Assessed Sex and Gender Information Value Date Recorded Sex Assigned at Not on file Legal 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 EQUINE VET Gender Identity Not on file Sexual Orientation Not on file documented as of this encounter Plan of Treatment Not on file documented as of this encounter Procedures Procedure Name Priority Date/Time Associated Diagnosis Comments PHOSPHORUS Routine 12/05/2022 6:30 AM EQUINE VET MAGNESIUM LEVEL Routine 12/05/2022 6:30 AM EQUINE VET BASIC METABOLIC PANEL Routine 12/05/2022 6:30 AM EQUINE VET documented in this encounter Results * MAGNESIUM LEVEL (12/05/2022 6:30 AM EQUINE VET) MAGNESIUM 2.0 1.6 - 2.4 mg/dL 12/05/2022 8:37 AM EQUINE VET [facility] Blood Collection / Unknown 12/05/2022 6:30 AM EQUINE VET 12/05/2022 8:18 AM EQUINE VET Low Amaya DO CHEMISTRY ORDERABLES Final R esult Performing Organization Address [facility]/ZIP Co de Phone Number [facility] CLIA # [id number] [address] [address] * PHOSPHORUS (12/05/2022 6:30 AM EQUINE VET) PHOSPHORUS 4.0 2.5 - 4.5 mg/dL 12/05/2022 8:37 AM [facility] Blood Collection / Unknown 12/05/2022 6:30 AM EQUINE VET 12/05/2022 8:18 [address] Low Amaya DO CHEMISTRY ORDERABLES Final R esult Performing Organization Address [facility] Co de Phone Number [facility] CLIA # [id number] [address] [address] * (ABNORMAL) BASIC METABOLIC PANEL (12/05/2022 6:30 AM EQUINE VET) SODIUM 141 136 - 145 mmol/L 12/05/2022 8:37 AM [facility] POTASSIUM 4.4 3.5 - 5.1 mmol/L 12/05/2022 8:37 AM [facility] CHLORIDE 105 98 - 107 mmol/L 12/05/2022 8:37 AM [facility] CO2 32(H) 22 - 29 mmol/L 12/05/2022 8:37 AM [facility] CALCIUM 10.2 8.8 - 10.2 mg/dL 12/05/2022 8:37 AM [facility] BUN 35(H) 8 - 23 mg/dL 12/05/2022 8:37 AM [facility] CREATININE 0.93 0.67 - 1.17 mg/dL 12/05/2022 8:37 AM [facility] GLUCOSE 116(H) 74 - 99 mg/dL 12/05/2022 8:37 AM [facility] GFR >60 >=60 mL/min/1.7 3 sq meter 12/05/2022 8:37 AM [facility] Comment:eGFR calculated with 2020 CKD-EPI equation. Vegetarian diet, extremely high or low muscle mass, and may affect results. Cystatin C with Glomerular Filtration Rate is a suitable alternative for these patients. ANION GAP 4(L) 9 - 20 mmol/L 12/05/2022 8:37 AM [facility] Blood Collection / Unknown 12/05/2022 6:30 AM EQUINE VET 12/05/2022 8:18 AM EQUINE VET Low Amaya DO CHEMISTRY ORDERABLES Final R esult [id number] [address] [place] [address] documented in this encounter Visit Diagnoses Not on filedocumented in this encounter Additional Health Concerns Infection Onset Date Last Indicated Resolved Time C Diff 11/17/2022 11/17/2022 01/16/2023 1:16 AM CDT documented as of this encounter Care Teams Bss Solution Architect Relationship Specialty Start Date End Date Shant Ballesteros Jr., MD [address] [place] [address] PCP - General Family Practice 01/19/14 documented as of this encounter
--- OUTSIDE RECORDS SUMMARY | 2025-04-27 16:23 | XMS_ITS | Encounter Summary ---
Author Organization [employer] Address [address] [place] [address] Care Team Providers Care Professional Volleyball Player Name Role Phone Favian Maldonado MD, Shant Humphreys Primary Care Provider Encounter Details Date Type Department Care Team (Late st Contact Info) Description 11/28/2022 Lab Requisition [facility] Laboratory Services [address] [place] [address] [place] [address] Low Amaya, DO [address] [place] [phone] Social History Tobacco Use Types Packs/Day Years Used Date Smoking Tobacco: Never Assessed Sex and Gender Information Value Date Recorded Sex Assigned at Not on file Legal 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 MACHINE DRILLER Gender Identity Not on file Sexual Orientation Not on file documented as of this encounter Plan of Treatment Not on file documented as of this encounter Procedures Procedure Name Priority Date/Time Associated Diagnosis Comments PHOSPHORUS Routine 11/28/2022 7:48 AM MACHINE DRILLER MAGNESIUM LEVEL Routine 11/28/2022 7:48 AM MACHINE DRILLER COMPREHENSIVE METABOLIC PANEL Routine 11/28/2022 7:48 AM MACHINE DRILLER documented in this encounter Results * MAGNESIUM LEVEL (11/28/2022 7:48 AM MACHINE DRILLER) MAGNESIUM 2.0 1.6 - 2.4 mg/dL 11/28/2022 8:53 AM MACHINE DRILLER [facility] Blood Collection / Unknown 11/28/2022 7:48 AM MACHINE DRILLER 11/28/2022 8:34 AM MACHINE DRILLER Low Amaya DO CHEMISTRY ORDERABLES Final R esult Performing Organization Address [facility]/ZIP Co de Phone Number [facility] CLIA # [id number] [address] [address] * PHOSPHORUS (11/28/2022 7:48 AM MACHINE DRILLER) PHOSPHORUS 3.0 2.5 - 4.5 mg/dL 11/28/2022 8:53 AM [facility] Blood Collection / Unknown 11/28/2022 7:48 AM MACHINE DRILLER 11/28/2022 8:34 AM MACHINE DRILLER Low Amaya DO CHEMISTRY ORDERABLES Final R esult Performing Organization Address [facility]/ZIP Co de Phone Number [facility] CLIA # [id number] [address] [address] * (ABNORMAL) COMPREHENSIVE METABOLIC PANEL (11/28/2022 7:48 AM MACHINE DRILLER) SODIUM 143 136 - 145 mmol/L 11/28/2022 8:53 AM [facility] POTASSIUM 4.0 3.5 - 5.1 mmol/L 11/28/2022 8:53 AM [facility] CHLORIDE 103 98 - 107 mmol/L 11/28/2022 8:53 AM [facility] CO2 33(H) 22 - 29 mmol/L 11/28/2022 8:53 AM [facility] CALCIUM 9.4 8.8 - 10.2 mg/dL 11/28/2022 8:53 AM [facility] BUN 27(H) 8 - 23 mg/dL 11/28/2022 8:53 AM [facility] CREATININE 0.96 0.67 - 1.17 mg/dL 11/28/2022 8:53 AM [facility] GLUCOSE 112(H) 74 - 99 mg/dL 11/28/2022 8:53 AM [facility] TOTAL PROTEIN 7.0 6.4 - 8.3 g/dL 11/28/2022 8:53 AM [facility] ALBUMIN 3.1(L) 3.5 - 5.2 g/dL 11/28/2022 8:53 AM [facility] BILIRUBIN TOTAL 0.3 0.2 - 1.0 mg/dL 11/28/2022 8:53 AM [facility] ALKALINE PHOSPHATASE 97 40 - 129 U/L 11/28/2022 8:53 AM [facility] AST 14 10 - 50 U/L 11/28/2022 8:53 AM [facility] ALT 11 <=50 U/L 11/28/2022 8:53 AM [facility] GFR >60 >=60 mL/min/1.7 3 sq meter 11/28/2022 8:53 AM [facility] Comment:eGFR calculated with 2020 CKD-EPI equation. Vegetarian diet, extremely high or low muscle mass, and may affect results. Cystatin C with Glomerular Filtration Rate is a suitable alternative for these patients. ANION GAP 7(L) 9 - 20 mmol/L 11/28/2022 8:53 AM [facility] Blood Collection / Unknown 11/28/2022 7:48 AM MACHINE DRILLER 11/28/2022 8:34 AM MACHINE DRILLER us Low Amaya DO CHEMISTRY ORDERABLES Final R esult [facility] CLIA # [id number] [facility] [address] documented in this encounter Visit Diagnoses Not on filedocumented in this encounter Additional Health Concerns Infection Onset Date Last Indicated Resolved Time C Diff 11/17/2022 11/17/2022 01/16/2023 1:16 AM CDT documented as of this encounter Care Teams Professional Volleyball Player Relationship Specialty Start Date End Date Shant Ballesteros Jr., MD [address] [place] [address] PCP - General Family Practice 01/19/14 documented as of this encounter
--- OUTSIDE RECORDS SUMMARY | 2025-04-27 16:23 | XMS_ITS | Encounter Summary ---
Author Organization [employer] Address [address] [place] [address] Care Team Providers Care Washing Machine Mechanic Name Role Phone Favian Maldonado MD, Shant Humphreys Primary Care Provider Encounter Details Date Type Department Care Team (Late st Contact Info) Description 11/26/2022 Lab Requisition [facility] Laboratory Services [address] [place] [address] Low Amaya, DO [address] [place] [address] Social History Tobacco Use Types Packs/Day Years Used Date Smoking Tobacco: Never Assessed Sex and Gender Information Value Date Recorded Sex Assigned at Not on file Legal 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 INSURANCE FOLLOW UP REP Gender Identity Not on file Sexual Orientation Not on file documented as of this encounter Plan of Treatment Not on file documented as of this encounter Procedures Procedure Name Priority Date/Time Associated Diagnosis Comments CBC WITH DIFFERENTIAL Routine 11/26/2022 1:15 AM INSURANCE FOLLOW UP REP TRIGLYCERIDE Routine 11/26/2022 1:15 AM INSURANCE FOLLOW UP REP PHOSPHORUS Routine 11/26/2022 1:15 AM INSURANCE FOLLOW UP REP MAGNESIUM LEVEL Routine 11/26/2022 1:15 AM INSURANCE FOLLOW UP REP COMPREHENSIVE METABOLIC PANEL Routine 11/26/2022 1:15 AM INSURANCE FOLLOW UP REP documented in this encounter Results * (ABNORMAL) TRIGLYCERIDE (11/26/2022 1:15 AM INSURANCE FOLLOW UP REP) TRIGLYCERIDE 172(H) <150 mg/dL 11/26/2022 6:[address] [facility] Blood Collection / Unknown 11/26/2022 1:15 AM INSURANCE FOLLOW UP REP 11/26/2022 6:01 AM INSURANCE FOLLOW UP REP Narrative [facility] - 11/26/2022 6:58 AM INSURANCE FOLLOW UP REP TRIGLYCERIDES mg/dL Normal < 150 Borderline High 150 - 199 High 200 - 499 Very High >= 500 Based on AHA/NCEP Guidelines. Low Amaya DO CHEMISTRY ORDERABLES Final R [facility] Performing Organization Address City/[facility]/ZIP Co de Phone Number [facility] CLIA # [id number] [address] [id number] * PHOSPHORUS (11/26/2022 1:15 AM INSURANCE FOLLOW UP REP) PHOSPHORUS 3.2 2.5 - 4.5 mg/dL 11/26/2022 6:[address] [facility] Blood Collection / Unknown 11/26/2022 1:15 AM INSURANCE FOLLOW UP REP 11/26/2022 6:01 AM INSURANCE FOLLOW UP REP Low Amaya DO CHEMISTRY ORDERABLES Final R esult [facility] CLIA # [id number] [id number] [place], [place] [id number] * MAGNESIUM LEVEL (11/26/2022 1:15 AM INSURANCE FOLLOW UP REP) MAGNESIUM 2.0 1.6 - 2.4 mg/dL 11/26/2022 6:58 AM INSURANCE FOLLOW UP REP [facility] Blood Collection / Unknown 11/26/2022 1:15 AM INSURANCE FOLLOW UP REP 11/26/2022 6:01 AM INSURANCE FOLLOW UP REP us Low Amaya DO CHEMISTRY ORDERABLES Final R esult [facility] CLIA # [id number] [address] [facility] [facility] [place] [address] * (ABNORMAL) CBC WITH DIFFERENTIAL (11/26/2022 1:15 AM INSURANCE FOLLOW UP REP) [facility] WBC 6.1 4.8 - 10.8 K/uL 11/26/2022 6:[address] [facility] RBC 2.61(L) 4.60 - 6.20 M/uL 11/26/2022 6:[address] [facility] HEMOGLOBIN 7.8(L) 14.0 - 18.0 g/dL 11/26/2022 6:[address] [facility] HEMATOCRIT 26.5(L) 41.0 - 53.0 % 11/26/2022 6:[address] [facility] MCV 101.5 84.0 - 103.0 fL 11/26/2022 6:[address] [facility] MCH 29.9 27.0 - 34.0 pg 11/26/2022 6:[address] [facility] MCHC 29.4(L) 30.0 - 35.0 g/dL 11/26/2022 6:[address] [facility] RDW 18.2(H) 11.0 - 14.5 % 11/26/2022 6:[address] [facility] RDW-STDEV 66.1(H) 37.0 - 54.0 fL 11/26/2022 6:[address] [facility] PLATELETS 222 140 - 440 K/uL 11/26/2022 6:[address] [facility] MPV 10.6 8.9 - 12.8 fL 11/26/2022 6:[address] [facility] NEUTROPHILS 63 42 - 75 % 11/26/2022 6:[address] [facility] LYMPHOCYTES 18(L) 24 - 44 % 11/26/2022 6:[address] [facility] MONOCYTES 13(H) 2 - 10 % 11/26/2022 6:[address] [facility] EOSINOPHILS 5 0 - 7 % 11/26/2022 6:[address] [facility] BASOPHILS 1 0 - 1 % 11/26/2022 6:[address] [facility] IMMATURE GRANULOCYTES 1 0 - 2 % 11/26/2022 6:[address] [facility] NEUTROPHIL ABSOLUTE 3.84 2.00 - 8.00 K/uL 11/26/2022 6:[address] [facility] LYMPHOCYTE ABSOLUTE 1.09(L) 1.20 - 4.00 K/uL 11/26/2022 6:[address] [facility] MONOCYTE ABSOLUTE 0.79(H) 0.10 - 0.60 K/uL 11/26/2022 6:[address] [facility] EOSINOPHIL ABSOLUTE 0.32 0.00 - 0.70 K/uL 11/26/2022 6:[address] [facility] BASOPHILS ABSOLUTE 0.04 0.00 - 0.20 K/uL 11/26/2022 6:[address] [facility] IMMATURE GRANULOCYTES ABSOLUTE 0.03 0.00 - 0.10 K/uL 11/26/2022 6:[address] [facility] Blood Collection / Unknown 11/26/2022 1:15 AM INSURANCE FOLLOW UP REP 11/26/2022 6:01 AM [facility] us Low Amaya DO HEMATOLOGY ORDERABLES Final Result [facility] CLIA # [id number] [facility] [address] [place] [address] * (ABNORMAL) COMPREHENSIVE METABOLIC PANEL (11/26/2022 1:15 AM INSURANCE FOLLOW UP REP) [facility] SODIUM 140 136 - 145 mmol/L 11/26/2022 6:[address] [facility] POTASSIUM 3.9 3.5 - 5.1 mmol/L 11/26/2022 6:[address] [facility] CHLORIDE 103 98 - 107 mmol/L 11/26/2022 6:[address] [facility] CO2 30(H) 22 - 29 mmol/L 11/26/2022 6:[address] [facility] CALCIUM 9.3 8.8 - 10.2 mg/dL 11/26/2022 6:[address] [facility] BUN 34(H) 8 - 23 mg/dL 11/26/2022 6:[address] [facility] CREATININE 1.08 0.67 - 1.17 mg/dL 11/26/2022 6:[address] [facility] GLUCOSE 129(H) 74 - 99 mg/dL 11/26/2022 6:[address] [facility] TOTAL PROTEIN 6.4 6.4 - 8.3 g/dL 11/26/2022 6:[address] [facility] ALBUMIN 2.9(L) 3.5 - 5.2 g/dL 11/26/2022 6:[address] [facility] BILIRUBIN TOTAL 0.3 0.2 - 1.0 mg/dL 11/26/2022 6:[address] [facility] ALKALINE PHOSPHATASE 86 40 - 129 U/L 11/26/2022 6:[address] [facility] AST 14 10 - 50 U/L 11/26/2022 6:[address] [facility] ALT 10 <=50 U/L 11/26/2022 6:[address] [facility] GFR >60 >=60 mL/min/1.7 3 sq meter 11/26/2022 6:[address] [facility] Comment:eGFR calculated with 2020 CKD-EPI equation. Vegetarian diet, extremely high or low muscle mass, and may affect results. Cystatin C with Glomerular Filtration Rate is a suitable alternative for these patients. ANION GAP 7(L) 9 - 20 mmol/L 11/26/2022 6:58 AM INSURANCE FOLLOW UP REP [facility] Blood Collection / Unknown 11/26/2022 1:15 AM INSURANCE FOLLOW UP REP 11/26/2022 6:01 AM INSURANCE FOLLOW UP REP Low Amaya DO CHEMISTRY ORDERABLES Final R esult [facility] CLIA # [id number] [facility] [address] documented in this encounter Visit Diagnoses Not on filedocumented in this encounter Additional Health Concerns Infection Onset Date Last Indicated Resolved Time C Diff 11/17/2022 11/17/2022 01/16/2023 1:16 AM CDT documented as of this encounter Care Teams Washing Machine Mechanic Relationship Specialty Start Date End Date Shant Ballesteros Jr., MD [address] [place] [address] PCP - General Family Practice 01/19/14 documented as of this encounter
--- OUTSIDE RECORDS SUMMARY | 2025-04-27 16:23 | XMS_ITS | Encounter Summary ---
Author Organization [facility] Address [address] [place] [address] Care Team Providers Care Facility Manager Histology Name Role Phone Favian Maldonado MD, Shant Humphreys Primary Care Provider Encounter Details Date Type Department Care Team (Late st Contact Info) Description 12/05/2022 Lab Requisition [facility] Laboratory Services [address] [place] [address] Low Amaya, DO [address] [place] [phone] Social History Tobacco Use Types Packs/Day Years Used Date Smoking Tobacco: Never Assessed Sex and Gender Information Value Date Recorded Sex Assigned at Not on file Legal 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 CLIENT ADVISOR Gender Identity Not on file Sexual Orientation Not on file documented as of this encounter Plan of Treatment Not on file documented as of this encounter Procedures Procedure Name Priority Date/Time Associated Diagnosis Comments PHOSPHORUS Routine 12/05/2022 3:30 AM CLIENT ADVISOR MAGNESIUM LEVEL Routine 12/05/2022 3:30 AM CLIENT ADVISOR documented in this encounter Results * MAGNESIUM LEVEL (12/05/2022 3:30 AM CLIENT ADVISOR) MAGNESIUM 12/05/2022 7:00 AM CLIENT ADVISOR [facility] SERVICES [facility] Comment: Contaminated specimen, called to Humble Garcia This is a corrected result. Previous result was 1.7 mg/dL on 12/05/2022 at 0553 CLIENT ADVISOR Blood Collection / Unknown 12/05/2022 3:30 AM CLIENT ADVISOR 12/05/2022 5:21 AM CLIENT ADVISOR Narrative [facility] - 12/05/2022 7:00 AM CLIENT ADVISOR To be credited Contaminated specimen Low Finley Monique DO CHEMISTRY ORDERABLES Edited Result - Final Performing Organization Address City/[facility]/ZIP Co de Phone Number [facility] CLIA # [id number] [address] [facility] [place] [address] * PHOSPHORUS (12/05/2022 3:30 AM CLIENT ADVISOR) PHOSPHORUS 12/05/2022 7:02 AM CLIENT ADVISOR [facility] Comment: Contaminated specimen. To be credited, called to Humble Garcia This is a corrected result. Previous result was 4.6 mg/dL on 12/05/2022 at 0553 [facility] Blood Collection / Unknown 12/05/2022 3:30 AM CLIENT ADVISOR 12/05/2022 5:21 AM CLIENT ADVISOR Low Finley Monique DO CHEMISTRY ORDERABLES Edited Result - Final Performing Organization Address [facility] Co de Phone Number [facility] CLIA # [id number] [id number] [place] [address] documented in this encounter Visit Diagnoses Not on filedocumented in this encounter Additional Health Concerns Infection Onset Date Last Indicated Resolved Time C Diff 11/17/2022 11/17/2022 01/16/2023 1:16 AM CDT documented as of this encounter Care Teams Facility Manager Histology Relationship Specialty Start Date End Date Shant Ballesteros Jr., MD [address] [place] [address] PCP - General Family Practice 01/19/14 documented as of this encounter
--- OUTSIDE RECORDS SUMMARY | 2025-04-27 16:23 | XMS_ITS | Encounter Summary ---
Author Organization [employer] [facility] Address [address] [place] [address] Care Team Providers Care Peripheral Edp Equipment Operator Name Role Phone Favian Maldonado MD, Shant Humphreys Primary Care Provider Encounter Details Date Type Department Care Team (Late st Contact Info) Description 12/03/2022 Lab Requisition [facility] Laboratory Services [address] [place] [address] Andre Mary, MADHU [address] [facility] [address] [place] [address] Social History Tobacco Use Types Packs/Day Years Used Date Smoking Tobacco: Never Assessed Sex and Gender Information Value Date Recorded Sex Assigned at Not on file Legal 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 FRAUD ANALYST Gender Identity Not on file Sexual Orientation Not on file documented as of this encounter Plan of Treatment Not on file documented as of this encounter Procedures Procedure Name Priority Date/Time Associated Diagnosis Comments CBC WITH DIFFERENTIAL Routine 12/03/2022 2:00 AM FRAUD ANALYST TRIGLYCERIDE Routine 12/03/2022 2:00 AM FRAUD ANALYST PHOSPHORUS Routine 12/03/2022 2:00 AM FRAUD ANALYST MAGNESIUM LEVEL Routine 12/03/2022 2:00 AM FRAUD ANALYST COMPREHENSIVE METABOLIC PANEL Routine 12/03/2022 2:00 AM FRAUD ANALYST documented in this encounter Results * MAGNESIUM LEVEL (12/03/2022 2:00 AM FRAUD ANALYST) MAGNESIUM 1.9 1.6 - 2.4 mg/dL 12/03/2022 7:06 AM [facility] Blood Collection / Unknown 12/03/2022 2:00 AM FRAUD ANALYST 12/03/2022 6:33 AM FRAUD ANALYST Andre Mary BIOCHEMISTRY PROFESSOR CHEMISTRY ORDERABLES Fin al Result Performing Organization Address [facility] de Phone Number [facility] CLIA # [id number] [id number] [place], [place] [address] * (ABNORMAL) TRIGLYCERIDE (12/03/2022 2:00 AM FRAUD ANALYST) Pathologist [facility] TRIGLYCERIDE 163(H) <150 mg/dL 12/03/2022 7:06 AM [facility] Blood Collection / Unknown 12/03/2022 2:00 AM FRAUD ANALYST 12/03/2022 6:33 AM FRAUD ANALYST Narrative [facility] - 12/03/2022 7:06 AM FRAUD ANALYST TRIGLYCERIDES mg/dL Normal < 150 Borderline High 150 - 199 High 200 - 499 Very High >= 500 Based on AHA/NCEP Guidelines. Andre Mary BIOCHEMISTRY PROFESSOR CHEMISTRY ORDERABLES Fin al Result Performing Organization Address [facility] de Phone Number [facility] CLIA # [id number] [address] [facility] [place], [place] [address] * PHOSPHORUS (12/03/2022 2:00 AM FRAUD ANALYST) Pathologist [facility] PHOSPHORUS 3.3 2.5 - 4.5 mg/dL 12/03/2022 7:06 AM [facility] Blood Collection / Unknown 12/03/2022 2:00 AM FRAUD ANALYST 12/03/2022 6:33 AM FRAUD ANALYST us Andre Mary NP CHEMISTRY ORDERABLES Fin al Result [facility] CLIA # [id number] [address] [facility] [facility] [place] [address] * (ABNORMAL) CBC WITH DIFFERENTIAL (12/03/2022 2:00 AM FRAUD ANALYST) [facility] WBC 6.5 4.8 - 10.8 K/uL 12/03/2022 6:40 AM [facility] RBC 3.05(L) 4.60 - 6.20 M/uL 12/03/2022 6:40 AM [facility] HEMOGLOBIN 9.1(L) 14.0 - 18.0 g/dL 12/03/2022 6:40 AM [facility] HEMATOCRIT 30.4(L) 41.0 - 53.0 % 12/03/2022 6:40 AM [facility] MCV 99.7 84.0 - 103.0 fL 12/03/2022 6:40 AM [facility] MCH 29.8 27.0 - 34.0 pg 12/03/2022 6:40 AM [facility] MCHC 29.9(L) 30.0 - 35.0 g/dL 12/03/2022 6:40 AM [facility] RDW 17.5(H) 11.0 - 14.5 % 12/03/2022 6:40 AM [facility] RDW-STDEV 63.8(H) 37.0 - 54.0 fL 12/03/2022 6:40 AM [facility] PLATELETS 247 140 - 440 K/uL 12/03/2022 6:40 AM [facility] MPV 10.6 8.9 - 12.8 fL 12/03/2022 6:40 AM [facility] NEUTROPHILS 57 42 - 75 % 12/03/2022 6:40 AM [facility] LYMPHOCYTES 19(L) 24 - 44 % 12/03/2022 6:40 AM [facility] MONOCYTES 12(H) 2 - 10 % 12/03/2022 6:40 AM [facility] EOSINOPHILS 11(H) 0 - 7 % 12/03/2022 6:40 AM [facility] BASOPHILS 1 0 - 1 % 12/03/2022 6:40 AM [facility] IMMATURE GRANULOCYTES 1 0 - 2 % 12/03/2022 6:40 AM [facility] NEUTROPHIL ABSOLUTE 3.68 2.00 - 8.00 K/uL 12/03/2022 6:40 AM [facility] LYMPHOCYTE ABSOLUTE 1.22 1.20 - 4.00 K/uL 12/03/2022 6:40 AM [facility] MONOCYTE ABSOLUTE 0.80(H) 0.10 - 0.60 K/uL 12/03/2022 6:40 AM [facility] EOSINOPHIL ABSOLUTE 0.69 0.00 - 0.70 K/uL 12/03/2022 6:40 AM [facility] BASOPHILS ABSOLUTE 0.06 0.00 - 0.20 K/uL 12/03/2022 6:40 AM [facility] IMMATURE GRANULOCYTES ABSOLUTE 0.03 0.00 - 0.10 K/uL 12/03/2022 6:40 AM [facility] Blood Collection / Unknown 12/03/2022 2:00 AM FRAUD ANALYST 12/03/2022 6:32 AM [facility] us Andre Mary BIOCHEMISTRY PROFESSOR HEMATOLOGY ORDERABLES Fi nal Result [facility] CLIA # [id number] [address] [facility] [place], [place] [id number] * (ABNORMAL) COMPREHENSIVE METABOLIC PANEL (12/03/2022 2:00 AM FRAUD ANALYST) [facility] SODIUM 140 136 - 145 mmol/L 12/03/2022 7:06 AM [facility] POTASSIUM 3.5 3.5 - 5.1 mmol/L 12/03/2022 7:06 AM [facility] CHLORIDE 101 98 - 107 mmol/L 12/03/2022 7:06 AM [facility] CO2 31(H) 22 - 29 mmol/L 12/03/2022 7:06 AM [facility] CALCIUM 9.8 8.8 - 10.2 mg/dL 12/03/2022 7:06 AM [facility] BUN 28(H) 8 - 23 mg/dL 12/03/2022 7:06 AM [facility] CREATININE 0.88 0.67 - 1.17 mg/dL 12/03/2022 7:06 AM [facility] GLUCOSE 130(H) 74 - 99 mg/dL 12/03/2022 7:06 AM [facility] TOTAL PROTEIN 6.8 6.4 - 8.3 g/dL 12/03/2022 7:06 AM [facility] ALBUMIN 3.1(L) 3.5 - 5.2 g/dL 12/03/2022 7:06 AM [facility] BILIRUBIN TOTAL 0.3 0.2 - 1.0 mg/dL 12/03/2022 7:06 AM [facility] ALKALINE PHOSPHATASE 104 40 - 129 U/L 12/03/2022 7:06 AM [facility] AST 19 10 - 50 U/L 12/03/2022 7:06 AM [facility] ALT 14 <=50 U/L 12/03/2022 7:06 AM [facility] GFR >60 >=60 mL/min/1.7 3 sq meter 12/03/2022 7:06 AM [facility] Comment:eGFR calculated with 2020 CKD-EPI equation. Vegetarian diet, extremely high or low muscle mass, and may affect results. Cystatin C with Glomerular Filtration Rate is a suitable alternative for these patients. ANION GAP 8(L) 9 - 20 mmol/L 12/03/2022 7:06 AM FRAUD ANALYST [facility] Blood Collection / Unknown 12/03/2022 2:00 AM FRAUD ANALYST 12/03/2022 6:33 AM FRAUD ANALYST us Andre Mary BIOCHEMISTRY PROFESSOR CHEMISTRY ORDERABLES Fin al Result [facility] CLIA # [id number] [facility] [address] [place] [address] documented in this encounter Visit Diagnoses Not on filedocumented in this encounter Additional Health Concerns Infection Onset Date Last Indicated Resolved Time C Diff 11/17/2022 11/17/2022 01/16/2023 1:16 AM CDT documented as of this encounter Care Teams Peripheral Edp Equipment Operator Relationship Specialty Start Date End Date Shant Ballesteros Jr., MD [address] [place] [address] PCP - General Family Practice 01/19/14 documented as of this encounter
--- OUTSIDE RECORDS SUMMARY | 2025-04-27 16:23 | XMS_ITS | Encounter Summary ---
Author Organization [employer] Address [address] [place] [address] Care Team Providers Care Otr Tanker Truck Driver Name Role Phone Favian Maldonado MD, Shant Humphreys Primary Care Provider Encounter Details Date Type Department Care Team (Late st Contact Info) Description 11/30/2022 Lab Requisition [facility] Laboratory Services [address] [place] [address] Low Amaya, DO [address] [place] [phone] Social History Tobacco Use Types Packs/Day Years Used Date Smoking Tobacco: Never Assessed Sex and Gender Information Value Date Recorded Sex Assigned at Not on file Legal 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 FUNERAL COUNSELOR Gender Identity Not on file Sexual Orientation Not on file documented as of this encounter Plan of Treatment Not on file documented as of this encounter Procedures Procedure Name Priority Date/Time Associated Diagnosis Comments PHOSPHORUS Routine 11/30/2022 4:55 AM FUNERAL COUNSELOR MAGNESIUM LEVEL Routine 11/30/2022 4:55 AM FUNERAL COUNSELOR BASIC METABOLIC PANEL Routine 11/30/2022 4:55 AM FUNERAL COUNSELOR documented in this encounter Results * MAGNESIUM LEVEL (11/30/2022 4:55 AM FUNERAL COUNSELOR) MAGNESIUM 2.0 1.6 - 2.4 mg/dL 11/30/2022 8:00 AM FUNERAL COUNSELOR [facility] Blood Collection / Unknown 11/30/2022 4:55 AM FUNERAL COUNSELOR 11/30/2022 6:21 AM FUNERAL COUNSELOR Low Amaya DO CHEMISTRY ORDERABLES Final R esult Performing Organization Address [facility]/ZIP Co de Phone Number [facility] CLIA # [id number] [address] [address] * PHOSPHORUS (11/30/2022 4:55 AM FUNERAL COUNSELOR) PHOSPHORUS 3.6 2.5 - 4.5 mg/dL 11/30/2022 6:35 AM [facility] Blood Collection / Unknown 11/30/2022 4:55 AM FUNERAL COUNSELOR 11/30/2022 6:21 AM FUNERAL COUNSELOR Low Amaya DO CHEMISTRY ORDERABLES Final R esult Performing Organization Address [facility]/ZIP Co de Phone Number [facility] CLIA # [id number] [address] [address] * (ABNORMAL) BASIC METABOLIC PANEL (11/30/2022 4:55 AM FUNERAL COUNSELOR) SODIUM 140 136 - 145 mmol/L 11/30/2022 6:35 AM [facility] POTASSIUM 4.1 3.5 - 5.1 mmol/L 11/30/2022 6:35 AM [facility] CHLORIDE 101 98 - 107 mmol/L 11/30/2022 6:35 AM [facility] CO2 34(H) 22 - 29 mmol/L 11/30/2022 6:35 AM [facility] CALCIUM 9.8 8.8 - 10.2 mg/dL 11/30/2022 6:35 AM [facility] BUN 31(H) 8 - 23 mg/dL 11/30/2022 6:35 AM [facility] CREATININE 0.99 0.67 - 1.17 mg/dL 11/30/2022 6:35 AM [facility] GLUCOSE 129(H) 74 - 99 mg/dL 11/30/2022 6:35 AM [facility] GFR >60 >=60 mL/min/1.7 3 sq meter 11/30/2022 6:35 AM [facility] Comment:eGFR calculated with 2020 CKD-EPI equation. Vegetarian diet, extremely high or low muscle mass, and may affect results. Cystatin C with Glomerular Filtration Rate is a suitable alternative for these patients. ANION GAP 5(L) 9 - 20 mmol/L 11/30/2022 6:35 AM [facility] Blood Collection / Unknown 11/30/2022 4:55 AM FUNERAL COUNSELOR 11/30/2022 6:21 AM FUNERAL COUNSELOR Low Amaya DO CHEMISTRY ORDERABLES Final R esult [facility] CLIA # [id number] [address] [place] [id number] documented in this encounter Visit Diagnoses Not on filedocumented in this encounter Additional Health Concerns Infection Onset Date Last Indicated Resolved Time C Diff 11/17/2022 11/17/2022 01/16/2023 1:16 AM CDT documented as of this encounter Care Teams [employer] Relationship Specialty Start Date End Date Shant Ballesteros Jr., MD [address] [place] [id number] PCP - General Family Practice 01/19/14 documented as of this encounter
--- OUTSIDE RECORDS SUMMARY | 2025-04-27 16:23 | XMS_ITS | Encounter Summary ---
Author Organization [facility] Address [address] [place] [address] Care Team Providers Care Buff Wheel Fabricator Name Role Phone Favian Maldonado MD, Shant Humphreys Primary Care Provider Encounter Details Date Type Department Care Team (Late st Contact Info) Description 12/06/[address] [facility] Laboratory Services [address] [place] [address] Esther Sarmiento MD [address] [place] [address] Social History Tobacco Use Types Packs/Day Years Used Date Smoking Tobacco: Never Assessed Sex and Gender Information Value Date Recorded Sex Assigned at Not on file Legal 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 CARDIOVASCULAR TECHNOLOGIST Gender Identity Not on file Sexual Orientation Not on file documented as of this encounter Plan of Treatment Not on file documented as of this encounter Procedures Procedure Name Priority Date/Time Associated Diagnosis Comments EXTRA TUBE (GREEN) Routine 12/06/2022 3:00 AM CARDIOVASCULAR TECHNOLOGIST documented in this encounter Results * EXTRA TUBE (GREEN) (12/06/2022 3:00 AM CARDIOVASCULAR TECHNOLOGIST) Blood Collection / Unknown 12/06/2022 3:00 AM CARDIOVASCULAR TECHNOLOGIST 12/06/2022 7:33 AM CARDIOVASCULAR TECHNOLOGIST us Esther Sarmiento MD CHEMISTRY ORDERABLES Final Resul t [facility] CLIA # [id number] [address] [facility] [place] [address] documented in this encounter Visit Diagnoses Not on filedocumented in this encounter Additional Health Concerns Infection Onset Date Last Indicated Resolved Time C Diff 11/17/2022 11/17/2022 01/16/2023 1:16 AM CDT documented as of this encounter Care Teams Buff Wheel Fabricator Relationship Specialty Start Date End Date Shant Ballesteros Jr., MD [address] [place] [address] PCP - General Family Practice 01/19/14 documented as of this encounter
--- OUTSIDE RECORDS SUMMARY | 2025-04-27 16:24 | XMS_ITS | Encounter Summary ---
Author Organization [facility] Address [address] [place] [address] Care Team Providers Care Cake Puncher Name Role Phone Favian Maldonado MD, Shant Humphreys Primary Care Provider Encounter Details Date Type Department Care Team (Late st Contact Info) Description 11/17/2022 Lab Requisition [facility] Laboratory Services [address] [place] [address] Cary Javier PA-C [address] [place] [address] Social History Tobacco Use Types Packs/Day Years Used Date Smoking Tobacco: Never Assessed Sex and Gender Information Value Date Recorded Sex Assigned at Not on file Legal 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 RESTAURANT MANAGEMENT INTERNSHIP Gender Identity Not on file Sexual Orientation Not on file documented as of this encounter Plan of Treatment Not on file documented as of this encounter Procedures Procedure Name Priority Date/Time Associated Diagnosis Comments C. DIFFICILE DETECTION Routine 11/17/2022 10:45 AM RESTAURANT MANAGEMENT INTERNSHIP documented in this encounter Results * (ABNORMAL) C. DIFFICILE DETECTION (11/17/2022 10:45 AM RESTAURANT MANAGEMENT INTERNSHIP) TOXIGENIC C DIFFICILE DETECTED( A) Not Detected 11/17/2022 1:45 PM RESTAURANT MANAGEMENT INTERNSHIP [facility] [employer] [facility] Stool STOOL SPECIMEN / Unknown Collection / Unknown 11/17/2022 10:45 AM RESTAURANT MANAGEMENT INTERNSHIP 11/17/2022 12:20 PM RESTAURANT MANAGEMENT INTERNSHIP Narrative [facility] [employer] [facility] - 11/17/2022 1:45 PM [employer] MANAG[employer] INTERNSHIP Cdiff detected called to Cait Feng [facility] by CATRACHO REINA on 11/17/2022 at 1:44 [...] MICROBIOLOGY - GENERAL ORDERAB LES Final Result [facility] [employer] [facility] CLIA # [id number] [facility] [address] documented in this encounter Visit Diagnoses Not on filedocumented in this encounter Additional Health Concerns Infection Onset Date Last Indicated Resolved Time C Diff 11/17/2022 11/17/2022 01/16/2023 1:16 AM CDT documented as of this encounter Care Teams Cake Puncher Relationship Specialty Start Date End Date Shant Ballesteros Jr., MD [address] [place] [address] PCP - General Family Practice 01/19/14 documented as of this encounter
--- OUTSIDE RECORDS SUMMARY | 2025-04-27 16:24 | XMS_ITS | Clinical Summary ---
Author Organization [facility] Address [address] Lara: Epic Prelude ADT JUVENAL MAHARAJ [address] Care Team Providers Care Coal Getter Name Role Phone Favian Maldonado MD, Shant [...] 01/04/20 23 Active naloxone (NARCAN) 4 mg/spray [place], Non-Aerosol EMERGENCY USE ONLY: Administer 1 spray [...] 12/21/2022 Immunizations Immunization Administration Dates Next Due ([employer])(12 YR UP) COVID-19 VACCINE - EMERGENCY USE AUTHORIZATION, MRNA, [id number](PF) 30 MCG/0.3 ML IM SUSP 11/09/2022 (PNEUMOVAX [...] on file Legal 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 DIETARY SERVICES DIRECTOR Gender Identity Not on file Sexual [...] Advance Directives For more information, please contact: [phone] * Full Code (Latest Code Status on File) Date Activated Date Inactivated Comments 12/21/2022 9:43 PM 01/03/2023 3:13 PM Care Teams Coal Getter Relationship Specialty Start Date End Date Shant Ballesteros Jr., MD [address] [place] [address] PCP - General Family Practice 01/19/14
--- OUTSIDE RECORDS SUMMARY | 2025-04-27 16:24 | XMS_ITS | Encounter Summary ---
Author Organization [employer] Address [address] [place] [address] Care Team Providers Care Natural Fabricator Name Role Phone Favian Maldonado MD, Shant Humphreys Primary Care Provider Encounter Details Date Type Department Care Team (Late st Contact Info) Description 11/23/2022 Lab Requisition [facility] Laboratory Services [address] [place] [address] Low Amaya, DO [address] [place] [phone] Social History Tobacco Use Types Packs/Day Years Used Date Smoking Tobacco: Never Assessed Sex and Gender Information Value Date Recorded Sex Assigned at Not on file Legal 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 KEYBOARD OPERATOR Gender Identity Not on file Sexual Orientation Not on file documented as of this encounter Plan of Treatment Not on file documented as of this encounter Procedures Procedure Name Priority Date/Time Associated Diagnosis Comments PHOSPHORUS Routine 11/23/2022 4:30 AM KEYBOARD OPERATOR MAGNESIUM LEVEL Routine 11/23/2022 4:30 AM KEYBOARD OPERATOR BASIC METABOLIC PANEL Routine 11/23/2022 4:30 AM KEYBOARD OPERATOR documented in this encounter Results * PHOSPHORUS (11/23/2022 4:30 AM KEYBOARD OPERATOR) PHOSPHORUS 4.1 2.5 - 4.5 mg/dL 11/23/2022 6:08 AM KEYBOARD OPERATOR [facility] Blood Collection / Unknown 11/23/2022 4:30 AM KEYBOARD OPERATOR 11/23/2022 5:49 AM KEYBOARD OPERATOR Low Amaya DO CHEMISTRY ORDERABLES Final R on license of [facility] Performing Organization Address [facility]/ZIP Co de Phone Number [facility] CLIA # [id number] [address] [facility] [place] [address] * MAGNESIUM LEVEL (11/23/2022 4:30 AM KEYBOARD OPERATOR) MAGNESIUM 1.9 1.6 - 2.4 mg/dL 11/23/2022 6:08 AM [facility] Blood Collection / Unknown 11/23/2022 4:30 AM KEYBOARD OPERATOR 11/23/2022 5:49 AM KEYBOARD OPERATOR Low Amaya DO CHEMISTRY ORDERABLES Final R esult Performing Organization Address [facility] Co de Phone Number [facility] CLIA # [id number] [address] [address] * (ABNORMAL) BASIC METABOLIC PANEL (11/23/2022 4:30 AM KEYBOARD OPERATOR) SODIUM 142 136 - 145 mmol/L 11/23/2022 6:08 AM [facility] [employer] [facility] POTASSIUM 4.3 3.5 - 5.1 mmol/L 11/23/2022 6:08 AM [facility] [employer] [facility] Comment:Slightly hemolyzed. Result may be falsely elevated. CHLORIDE 104 98 - 107 mmol/L 11/23/2022 6:08 AM [facility] CO2 30(H) 22 - 29 mmol/L 11/23/2022 6:08 AM [facility] CALCIUM 9.5 8.8 - 10.2 mg/dL 11/23/2022 6:08 AM [facility] BUN 25(H) 8 - 23 mg/dL 11/23/2022 6:08 AM [facility] CREATININE 0.92 0.67 - 1.17 mg/dL 11/23/2022 6:08 AM [facility] GLUCOSE 135(H) 74 - 99 mg/dL 11/23/2022 6:08 AM [facility] GFR >60 >=60 mL/min/1.7 3 sq meter 11/23/2022 6:08 AM [facility] Comment:eGFR calculated with 2020 CKD-EPI equation. Vegetarian diet, extremely high or low muscle mass, and may affect results. Cystatin C with Glomerular Filtration Rate is a suitable alternative for these patients. ANION GAP 8(L) 9 - 20 mmol/L 11/23/2022 6:08 AM [facility] Blood Collection / Unknown 11/23/2022 4:30 AM KEYBOARD OPERATOR 11/23/2022 5:49 AM KEYBOARD OPERATOR Low Amaya DO CHEMISTRY ORDERABLES Final R esult [facility] CLIA # [id number] [address] [place] [address] documented in this encounter Visit Diagnoses Not on filedocumented in this encounter Additional Health Concerns Infection Onset Date Last Indicated Resolved Time C Diff 11/17/2022 11/17/2022 01/16/2023 1:16 AM CDT documented as of this encounter Care Teams Natural Fabricator Relationship Specialty Start Date End Date Shant Ballesteros Jr., MD [address] [place] [address] PCP - General Family Practice 01/19/14 documented as of this encounter
--- OUTSIDE RECORDS SUMMARY | 2025-04-27 16:24 | XMS_ITS | Encounter Summary ---
Author Organization [facility] Address [address] [place] [address] Care Team Providers Care Tableau Administrator Name Role Phone Favian Maldonado MD, Shant Hmuphreys Primary Care Provider Encounter Details Date Type Department Care Team (Late st Contact Info) Description 11/20/2022 Lab Requisition [facility] Laboratory Services [address] [place] [address] Andre Mary, MADHU [address] [facility] [address] [place] [address] Social History Tobacco Use Types Packs/Day Years Used Date Smoking Tobacco: Never Assessed Sex and Gender Information Value Date Recorded Sex Assigned at Not on file Legal 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 RESORT HOST Gender Identity Not on file Sexual Orientation Not on file documented as of this encounter Plan of Treatment Not on file documented as of this encounter Procedures Procedure Name Priority Date/Time Associated Diagnosis Comments CBC WITH DIFFERENTIAL Routine 11/20/2022 3:55 PM RESORT HOST documented in this encounter Results * (ABNORMAL) CBC WITH DIFFERENTIAL (11/20/2022 3:55 PM RESORT HOST) WBC 7.3 4.8 - 10.8 K/uL 11/20/2022 4:35 PM RESORT HOST [facility] LABORATORY [facility] RBC 2.66(L) 4.60 - 6.20 M/uL 11/20/2022 4:35 PM RESORT HOST [facility] LABORATORY [facility] HEMOGLOBIN 8.0(L) 14.0 - 18.0 g/dL 11/20/2022 4:35 PM [facility] HEMATOCRIT 27.1(L) 41.0 - 53.0 % 11/20/2022 4:35 PM [facility] MCV 101.9 84.0 - 103.0 fL 11/20/2022 4:35 PM [facility] MCH 30.1 27.0 - 34.0 pg 11/20/2022 4:35 PM [facility] MCHC 29.5(L) 30.0 - 35.0 g/dL 11/20/2022 4:35 PM [facility] RDW 17.7(H) 11.0 - 14.5 % 11/20/2022 4:35 PM [facility] RDW-STDEV 62.4(H) 37.0 - 54.0 fL 11/20/2022 4:35 PM [facility] PLATELETS 302 140 - 440 K/uL 11/20/2022 4:35 PM [facility] MPV 9.6 8.9 - 12.8 fL 11/20/2022 4:35 PM [facility] NEUTROPHILS 68 42 - 75 % 11/20/2022 4:35 PM [facility] LYMPHOCYTES 15(L) 24 - 44 % 11/20/2022 4:35 PM [facility] MONOCYTES 12(H) 2 - 10 % 11/20/2022 4:35 PM [facility] EOSINOPHILS 3 0 - 7 % 11/20/2022 4:35 PM [facility] BASOPHILS 0 0 - 1 % 11/20/2022 4:35 PM [facility] IMMATURE GRANULOCYTES 1 0 - 2 % 11/20/2022 4:35 PM [facility] NEUTROPHIL ABSOLUTE 5.00 2.00 - 8.00 K/uL 11/20/2022 4:35 PM [facility] LYMPHOCYTE ABSOLUTE 1.06(L) 1.20 - 4.00 K/uL 11/20/2022 4:35 PM RESORT HOST [facility] MONOCYTE ABSOLUTE 0.91(H) 0.10 - 0.60 K/uL 11/20/2022 4:35 PM RESORT HOST [facility] EOSINOPHIL ABSOLUTE 0.22 0.00 - 0.70 K/uL 11/20/2022 4:35 PM [facility] BASOPHILS ABSOLUTE 0.02 0.00 - 0.20 K/uL 11/20/2022 4:35 PM [facility] IMMATURE GRANULOCYTES ABSOLUTE 0.10 0.00 - 0.10 K/uL 11/20/2022 4:35 PM [facility] Blood Collection / Unknown 11/20/2022 3:55 PM RESORT HOST 11/20/2022 4:30 PM RESORT HOST us Andre Mary PUR[facility] SE[facility]ER HEMATOLOGY ORDERABLES Fi nal Result [facility] CLIA # [id number] [facility] [address] documented in this encounter Visit Diagnoses Not on filedocumented in this encounter Additional Health Concerns Infection Onset Date Last Indicated Resolved Time C Diff 11/17/2022 11/17/2022 01/16/2023 1:16 AM CDT documented as of this encounter Care Teams Tableau Administrator Relationship Specialty Start Date End Date Shant Ballesteros Jr., MD [address] [place] [address] PCP - General Family Practice 01/19/14 documented as of this encounter
--- OUTSIDE RECORDS SUMMARY | 2025-04-27 16:24 | XMS_ITS | Encounter Summary ---
Author Organization [facility] Address [address] [place] [address] Care Team Providers Care Airdox Fitter Name Role Phone Favian Maldonado MD, Shant Humphreys Primary Care Provider Encounter Details Date Type Department Care Team (Late st Contact Info) Description 11/09/[address] [facility] Laboratory Services [address] [place] [address] Soni Jeffery MD [address] [place] [address] Social History Tobacco Use Types Packs/Day Years Used Date Smoking Tobacco: Never Assessed Sex and Gender Information Value Date Recorded Sex Assigned at Not on file Legal 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 ANNEALING TORCH OPERATOR Gender Identity Not on file Sexual Orientation Not on file documented as of this encounter Plan of Treatment Not on file documented as of this encounter Procedures Procedure Name Priority Date/Time Associated Diagnosis Comments CBC WITH DIFFERENTIAL Routine 11/09/2022 6:15 PM ANNEALING TORCH OPERATOR BASIC METABOLIC PANEL Routine 11/09/2022 6:15 PM ANNEALING TORCH OPERATOR documented in this encounter Results * (ABNORMAL) CBC WITH DIFFERENTIAL (11/09/2022 6:15 PM ANNEALING TORCH OPERATOR) [facility] WBC 7.2 4.8 - 10.8 K/uL 11/09/2022 7:07 PM ANNEALING TORCH OPERATOR [facility] LABORATORY SERVICES [facility] RBC 2.78(L) 4.60 - 6.20 M/uL 11/09/2022 7:07 PM [facility] HEMOGLOBIN 8.0(L) 14.0 - 18.0 g/dL 11/09/2022 7:07 PM [facility] HEMATOCRIT 27.5(L) 41.0 - 53.0 % 11/09/2022 7:07 PM [facility] MCV 98.9 84.0 - 103.0 fL 11/09/2022 7:07 PM [facility] MCH 28.8 27.0 - 34.0 pg 11/09/2022 7:07 PM [facility] MCHC 29.1(L) 30.0 - 35.0 g/dL 11/09/2022 7:07 PM [facility] RDW 15.9(H) 11.0 - 14.5 % 11/09/2022 7:07 PM [facility] RDW-STDEV 57.7(H) 37.0 - 54.0 fL 11/09/2022 7:07 PM [facility] PLATELETS 250 140 - 440 K/uL 11/09/2022 7:07 PM [facility] MPV 10.9 8.9 - 12.8 fL 11/09/2022 7:07 PM [facility] NEUTROPHILS 65 42 - 75 % 11/09/2022 7:07 PM [facility] LYMPHOCYTES 11(L) 24 - 44 % 11/09/2022 7:07 PM [facility] MONOCYTES 17(H) 2 - 10 % 11/09/2022 7:07 PM [facility] EOSINOPHILS 6 0 - 7 % 11/09/2022 7:07 PM [facility] BASOPHILS 1 0 - 1 % 11/09/2022 7:07 PM [facility] IMMATURE GRANULOCYTES 1 0 - 2 % 11/09/2022 7:07 PM [facility] NEUTROPHIL ABSOLUTE 4.64 2.00 - 8.00 K/uL 11/09/2022 7:07 PM [facility] LYMPHOCYTE ABSOLUTE 0.79(L) 1.20 - 4.00 K/uL 11/09/2022 7:07 PM [facility] MONOCYTE ABSOLUTE 1.19(H) 0.10 - 0.60 K/uL 11/09/2022 7:07 PM [facility] EOSINOPHIL ABSOLUTE 0.42 0.00 - 0.70 K/uL 11/09/2022 7:07 PM [facility] BASOPHILS ABSOLUTE 0.04 0.00 - 0.20 K/uL 11/09/2022 7:07 PM [facility] IMMATURE GRANULOCYTES ABSOLUTE 0.08 0.00 - 0.10 K/uL 11/09/2022 7:07 PM [facility] Blood Collection / Unknown 11/09/2022 6:15 PM ANNEALING TORCH OPERATOR 11/09/2022 7:03 PM [facility] Soni Jeffery MD HEMATOLOGY ORDERABLES Final Resu lt [facility] CLIA # [id number] [facility] [address] * (ABNORMAL) BASIC METABOLIC PANEL (11/09/2022 6:15 PM ANNEALING TORCH OPERATOR) SODIUM 140 136 - 145 mmol/L 11/09/2022 7:39 PM [facility] POTASSIUM 4.8 3.5 - 5.1 mmol/L 11/09/2022 7:39 PM [facility] CHLORIDE 106 98 - 107 mmol/L 11/09/2022 7:39 PM [facility] CO2 26 22 - 29 mmol/L 11/09/2022 7:39 PM [facility] CALCIUM 8.6(L) 8.8 - 10.2 mg/dL 11/09/2022 7:39 PM [facility] BUN 22 8 - 23 mg/dL 11/09/2022 7:39 PM [facility] CREATININE 1.15 0.67 - 1.17 mg/dL 11/09/2022 7:39 PM [facility] GLUCOSE 121(H) 74 - 99 mg/dL 11/09/2022 7:39 PM ANNEALING TORCH OPERATOR [facility] GFR >60 >=60 mL/min/1.7 3 sq meter 11/09/2022 7:39 PM [facility] Comment:eGFR calculated with 2020 CKD-EPI equation. Vegetarian diet, extremely high or low muscle mass, and may affect results. Cystatin C with Glomerular Filtration Rate is a suitable alternative for these patients. ANION GAP 8(L) 9 - 20 mmol/L 11/09/2022 7:39 PM [facility] Blood Collection / Unknown 11/09/2022 6:15 PM ANNEALING TORCH OPERATOR 11/09/2022 7:03 PM ANNEALING TORCH OPERATOR Soni Jeffery MD CHEMISTRY ORDERABLES Final Resul t Performing Organization Address City/State/[facility] Co de Phone Number [facility] CLIA # [id number] [facility] [address] documented in this encounter Visit Diagnoses Not on filedocumented in this encounter Additional Health Concerns Infection Onset Date Last Indicated Resolved Time C Diff 11/17/2022 11/17/2022 01/16/2023 1:16 AM CDT documented as of this encounter Care Teams Airdox Fitter Relationship Specialty Start Date End Date Shant Ballesteros Jr., MD [address] [place] [address] PCP - General Family Practice 01/19/14 documented as of this encounter
--- OUTSIDE RECORDS SUMMARY | 2025-04-27 16:24 | XMS_ITS | Encounter Summary ---
Author Organization [facility] Address [address] [place] [address] Care Team Providers Care Subsurface Augmentee Operator Name Role Phone Favian Maldonado MD, Shant Humphreys Primary Care Provider Encounter Details Date Type Department Care Team (Late st Contact Info) Description 11/10/[address] [facility] Laboratory Services [address] [place] [address] Soni Jeffery MD [address] [place] [address] Social History Tobacco Use Types Packs/Day Years Used Date Smoking Tobacco: Never Assessed Sex and Gender Information Value Date Recorded Sex Assigned at Not on file Legal 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 YARN MERCERIZER OPERATOR HELPER Gender Identity Not on file Sexual Orientation Not on file documented as of this encounter Plan of Treatment Not on file documented as of this encounter Procedures Procedure Name Priority Date/Time Associated Diagnosis Comments CBC WITH DIFFERENTIAL Stat 11/10/2022 2:20 PM YARN MERCERIZER OPERATOR HELPER documented in this encounter Results * (ABNORMAL) CBC WITH DIFFERENTIAL (11/10/2022 2:20 PM YARN MERCERIZER OPERATOR HELPER) WBC 5.2 4.8 - 10.8 K/uL 11/10/2022 3:18 PM YARN MERCERIZER OPERATOR HELPER [facility] LABORATORY [facility] RBC 2.60(L) 4.60 - 6.20 M/uL 11/10/2022 3:18 PM YARN MERCERIZER OPERATOR HELPER [facility] LABORATORY [facility] HEMOGLOBIN 7.6(L) 14.0 - 18.0 g/dL 11/10/2022 3:18 PM [facility] HEMATOCRIT 25.3(L) 41.0 - 53.0 % 11/10/2022 3:18 PM [facility] MCV 97.3 84.0 - 103.0 fL 11/10/2022 3:18 PM [facility] MCH 29.2 27.0 - 34.0 pg 11/10/2022 3:18 PM [facility] MCHC 30.0 30.0 - 35.0 g/dL 11/10/2022 3:18 PM [facility] RDW 15.8(H) 11.0 - 14.5 % 11/10/2022 3:18 PM [facility] RDW-STDEV 56.3(H) 37.0 - 54.0 fL 11/10/2022 3:18 PM [facility] PLATELETS 249 140 - 440 K/uL 11/10/2022 3:18 PM [facility] MPV 11.0 8.9 - 12.8 fL 11/10/2022 3:18 PM [facility] NEUTROPHILS 62 42 - 75 % 11/10/2022 3:18 PM [facility] LYMPHOCYTES 15(L) 24 - 44 % 11/10/2022 3:18 PM [facility] MONOCYTES 17(H) 2 - 10 % 11/10/2022 3:18 PM [facility] EOSINOPHILS 6 0 - 7 % 11/10/2022 3:18 PM [facility] BASOPHILS 1 0 - 1 % 11/10/2022 3:18 PM [facility] IMMATURE GRANULOCYTES 1 0 - 2 % 11/10/2022 3:18 PM [facility] NEUTROPHIL ABSOLUTE 3.22 2.00 - 8.00 K/uL 11/10/2022 3:18 PM [facility] LYMPHOCYTE ABSOLUTE 0.78(L) 1.20 - 4.00 K/uL 11/10/2022 3:18 PM [facility] MONOCYTE ABSOLUTE 0.87(H) 0.10 - 0.60 K/uL 11/10/2022 3:18 PM YARN MERCERIZER OPERATOR HELPER [facility] LABORATORY [facility] EOSINOPHIL ABSOLUTE 0.30 0.00 - 0.70 K/uL 11/10/2022 3:18 PM YARN MERCERIZER OPERATOR HELPER [facility] BASOPHILS ABSOLUTE 0.03 0.00 - 0.20 K/uL 11/10/2022 3:18 PM YARN MERCERIZER OPERATOR HELPER [facility] IMMATURE GRANULOCYTES ABSOLUTE 0.03 0.00 - 0.10 K/uL 11/10/2022 3:18 PM YARN MERCERIZER OPERATOR HELPER [facility] Blood Collection / Unknown 11/10/2022 2:20 PM YARN MERCERIZER OPERATOR HELPER 11/10/2022 3:09 PM YARN MERCERIZER OPERATOR HELPER Soni Jeffery MD HEMATOLOGY ORDERABLES Final Resu lt [facility] CLIA # [id number] [facility] [address] documented in this encounter Visit Diagnoses Not on filedocumented in this encounter Additional Health Concerns Infection Onset Date Last Indicated Resolved Time C Diff 11/17/2022 11/17/2022 01/16/2023 1:16 AM CDT documented as of this encounter Care Teams Subsurface Augmentee Operator Relationship Specialty Start Date End Date Shant Ballesteors Jr., MD [address] [place] [address] PCP - General Family Practice 01/19/14 documented as of this encounter
--- OUTSIDE RECORDS SUMMARY | 2025-04-27 16:24 | XMS_ITS | Encounter Summary ---
Author Organization [facility] Address [address] [place] [address] Care Team Providers Care Flying Squad Salesperson Name Role Phone Favian Maldonado MD, Shant Humphreys Primary Care Provider Encounter Details Date Type Department Care Team (Late st Contact Info) Description 11/17/2022 Lab Requisition [facility] Laboratory Services [address] [place] [address] Andre Mary, MADHU [address] [facility] [address] [place] [address] Social History Tobacco Use Types Packs/Day Years Used Date Smoking Tobacco: Never Assessed Sex and Gender Information Value Date Recorded Sex Assigned at Not on file Legal 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 CUSTOMER CARE COORDINATOR Gender Identity Not on file Sexual Orientation Not on file documented as of this encounter Plan of Treatment Not on file documented as of this encounter Procedures Procedure Name Priority Date/Time Associated Diagnosis Comments CBC WITH DIFFERENTIAL Stat 11/17/2022 4:30 AM CUSTOMER CARE COORDINATOR TRIGLYCERIDE Stat 11/17/2022 4:30 AM CUSTOMER CARE COORDINATOR PHOSPHORUS Stat 11/17/2022 4:30 AM CUSTOMER CARE COORDINATOR MAGNESIUM LEVEL Stat 11/17/2022 4:30 AM CUSTOMER CARE COORDINATOR COMPREHENSIVE METABOLIC PANEL Routine 11/17/2022 4:30 AM CUSTOMER CARE COORDINATOR documented in this encounter Results * TRIGLYCERIDE (11/17/2022 4:30 AM CUSTOMER CARE COORDINATOR) TRIGLYCERIDE 103 <150 mg/dL 11/17/2022 5:51 AM CUSTOMER CARE COORDINATOR [facility] Blood Collection / Unknown 11/17/2022 4:30 AM CUSTOMER CARE COORDINATOR 11/17/2022 5:31 AM CUSTOMER CARE COORDINATOR Narrative [facility] - 11/17/2022 5:51 AM CUSTOMER CARE COORDINATOR TRIGLYCERIDES mg/dL Normal < 150 Borderline High 150 - 199 High 200 - 499 Very High >= 500 Based on AHA/NCEP Guidelines. Andre Mary SENIOR WEB DEVELOPER CHEMISTRY ORDERABLES Fin al Result Performing Organization Address City/[facility]/ZIP Co de Phone Number [facility] CLIA # [id number] [address] [place], [place] [id number] * PHOSPHORUS (11/17/2022 4:30 AM CUSTOMER CARE COORDINATOR) Pathologist [facility] PHOSPHORUS 3.2 2.5 - 4.5 mg/dL 11/17/2022 5:51 AM CUSTOMER CARE COORDINATOR [facility] Blood Collection / Unknown 11/17/2022 4:30 AM CUSTOMER CARE COORDINATOR 11/17/2022 5:31 AM CUSTOMER CARE COORDINATOR Andre Mary SENIOR WEB DEVELOPER CHEMISTRY ORDERABLES Fin al Result [facility] CLIA # [id number] [address] [facility] [place], [place] [address] * MAGNESIUM LEVEL (11/17/2022 4:30 AM CUSTOMER CARE COORDINATOR) MAGNESIUM 2.1 1.6 - 2.4 mg/dL 11/17/2022 5:51 AM CUSTOMER CARE COORDINATOR [facility] Blood Collection / Unknown 11/17/2022 4:30 AM CUSTOMER CARE COORDINATOR 11/17/2022 5:31 AM CUSTOMER CARE COORDINATOR us Andre Mary NP CHEMISTRY ORDERABLES Fin al Result [facility] CLBRYANT # [id number] [address] [facility] [place] [place] [address] * (ABNORMAL) CBC WITH DIFFERENTIAL (11/17/2022 4:30 AM CUSTOMER CARE COORDINATOR) [facility] WBC 8.8 4.8 - 10.8 K/uL 11/17/2022 5:58 AM [facility] RBC 2.68(L) 4.60 - 6.20 M/uL 11/17/2022 5:58 AM [facility] HEMOGLOBIN 8.0(L) 14.0 - 18.0 g/dL 11/17/2022 5:58 AM [facility] HEMATOCRIT 27.6(L) 41.0 - 53.0 % 11/17/2022 5:58 AM [facility] MCV 103.0 84.0 - 103.0 fL 11/17/2022 5:58 AM [facility] MCH 29.9 27.0 - 34.0 pg 11/17/2022 5:58 AM [facility] MCHC 29.0(L) 30.0 - 35.0 g/dL 11/17/2022 5:58 AM [facility] RDW 18.1(H) 11.0 - 14.5 % 11/17/2022 5:58 AM [facility] RDW-STDEV 65.9(H) 37.0 - 54.0 fL 11/17/2022 5:58 AM [facility] PLATELETS 296 140 - 440 K/uL 11/17/2022 5:58 AM [facility] MPV 9.6 8.9 - 12.8 fL 11/17/2022 5:58 AM [facility] NEUTROPHILS 67 42 - 75 % 11/17/2022 5:58 AM [facility] LYMPHOCYTES 12(L) 24 - 44 % 11/17/2022 5:58 AM [facility] MONOCYTES 13(H) 2 - 10 % 11/17/2022 5:58 AM [facility] EOSINOPHILS 6 0 - 7 % 11/17/2022 5:58 AM [facility] BASOPHILS 1 0 - 1 % 11/17/2022 5:58 AM [facility] IMMATURE GRANULOCYTES 2 0 - 2 % 11/17/2022 5:58 AM [facility] NEUTROPHIL ABSOLUTE 5.91 2.00 - 8.00 K/uL 11/17/2022 5:58 AM [facility] LYMPHOCYTE ABSOLUTE 1.04(L) 1.20 - 4.00 K/uL 11/17/2022 5:58 AM [facility] MONOCYTE ABSOLUTE 1.10(H) 0.10 - 0.60 K/uL 11/17/2022 5:58 AM [facility] EOSINOPHIL ABSOLUTE 0.56 0.00 - 0.70 K/uL 11/17/2022 5:58 AM [facility] BASOPHILS ABSOLUTE 0.06 0.00 - 0.20 K/uL 11/17/2022 5:58 AM [facility] IMMATURE GRANULOCYTES ABSOLUTE 0.13(H) 0.00 - 0.10 K/uL 11/17/2022 5:58 AM [facility] Blood Collection / Unknown 11/17/2022 4:30 AM CUSTOMER CARE COORDINATOR 11/17/2022 5:30 AM [facility] us Andre Mary SENIOR WEB DEVELOPER HEMATOLOGY ORDERABLES Fi nal Result [facility] CLIA # [id number] [address] [address] [place], [place] [id number] * (ABNORMAL) COMPREHENSIVE METABOLIC PANEL (11/17/2022 4:30 AM CUSTOMER CARE COORDINATOR) [facility] SODIUM 144 136 - 145 mmol/L 11/17/2022 5:51 AM [facility] POTASSIUM 3.8 3.5 - 5.1 mmol/L 11/17/2022 5:51 AM [facility] CHLORIDE 107 98 - 107 mmol/L 11/17/2022 5:51 AM [facility] CO2 34(H) 22 - 29 mmol/L 11/17/2022 5:51 AM [facility] CALCIUM 9.1 8.8 - 10.2 mg/dL 11/17/2022 5:51 AM [facility] BUN 20 8 - 23 mg/dL 11/17/2022 5:51 AM [facility] CREATININE 1.03 0.67 - 1.17 mg/dL 11/17/2022 5:51 AM [facility] GLUCOSE 151(H) 74 - 99 mg/dL 11/17/2022 5:51 AM [facility] TOTAL PROTEIN 6.5 6.4 - 8.3 g/dL 11/17/2022 5:51 AM [facility] ALBUMIN 2.8(L) 3.5 - 5.2 g/dL 11/17/2022 5:51 AM [facility] BILIRUBIN TOTAL 0.3 0.2 - 1.0 mg/dL 11/17/2022 5:51 AM [facility] ALKALINE PHOSPHATASE 69 40 - 129 U/L 11/17/2022 5:51 AM [facility] AST 12 10 - 50 U/L 11/17/2022 5:51 AM [facility] ALT 10 <=50 U/L 11/17/2022 5:51 AM [facility] GFR >60 >=60 mL/min/1.7 3 sq meter 11/17/2022 5:51 AM [facility] Comment:eGFR calculated with 2020 CKD-EPI equation. Vegetarian diet, extremely high or low muscle mass, and may affect results. Cystatin C with Glomerular Filtration Rate is a suitable alternative for these patients. ANION GAP 3(L) 9 - 20 mmol/L 11/17/2022 5:51 AM CUSTOMER CARE COORDINATOR [facility] P[facility]ert [facility] Blood Collection / Unknown 11/17/2022 4:30 AM CUSTOMER CARE COORDINATOR 11/17/2022 5:31 AM CUSTOMER CARE COORDINATOR Andre Mary SENIOR WEB DEVELOPER CHEMISTRY ORDERABLES Fin al Result [facility] Prelert [facility] CLIA # [id number] [address] [address] [place] [address] documented in this encounter Visit Diagnoses Not on filedocumented in this encounter Additional Health Concerns Infection Onset Date Last Indicated Resolved Time C Diff 11/17/2022 11/17/2022 01/16/2023 1:16 AM CDT documented as of this encounter Care Teams Flying Squad Salesperson Relationship Specialty Start Date End Date Shant Ballesteros Jr., MD [address] [place] [address] PCP - General Family Practice 01/19/14 documented as of this encounter
--- OUTSIDE RECORDS SUMMARY | 2025-04-27 16:24 | XMS_ITS | Encounter Summary ---
Author Organization [employer] [facility] Address [address] [place] [address] Care Team Providers Care Intraoperative Neuro Tech Name Role Phone Favian Maldonado MD, Shant Humphreys Primary Care Provider Encounter Details Date Type Department Care Team (Late st Contact Info) Description 11/19/2022 Lab Requisition [facility] Services [address] [place] [address] [place] [address] Low Amaya, DO [address] [place] [id number] Social History Tobacco Use Types Packs/Day Years Used Date Smoking Tobacco: Never Assessed Sex and Gender Information Value Date Recorded Sex Assigned at Not on file Legal 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 [employer] Gender Identity Not on file Sexual Orientation Not on file documented as of this encounter Plan of Treatment Not on file documented as of this encounter Procedures Procedure Name Priority Date/Time Associated Diagnosis Comments TRIGLYCERIDE Routine 11/19/2022 2:55 AM [employer] PHOSPHORUS Routine 11/19/2022 2:55 AM [employer] MAGNESIUM LEVEL Routine 11/19/2022 2:55 AM [employer] COMPREHENSIVE METABOLIC PANEL Routine 11/19/2022 2:55 AM [employer] documented in this encounter Results * TRIGLYCERIDE (11/19/2022 2:55 AM [employer]) TRIGLYCERIDE 126 <150 mg/dL 11/19/2022 6:43 AM [employer]NC[employer]S [facility] Blood Collection / Unknown 11/19/2022 2:55 AM [employer] 11/19/2022 6:22 AM [employer] Narrative [facility] - 11/19/2022 6:43 AM [employer] TRIGLYCERIDES mg/dL Normal < 150 Borderline High 150 - 199 High 200 - 499 Very High >= 500 Based on AHA/NCEP Guidelines. Low Amaya DO CHEMISTRY ORDERABLES Final R esult Performing Organization Address [facility] Co de Phone Number [facility] CLIA # [id number] [address] [facility] [place] [address] * PHOSPHORUS (11/19/2022 2:55 AM [employer]) PHOSPHORUS 4.4 2.5 - 4.5 mg/dL 11/19/2022 6:43 AM [employer] [facility] Blood Collection / Unknown 11/19/2022 2:55 AM [employer] 11/19/2022 6:22 AM [employer] Low Amaya DO CHEMISTRY ORDERABLES Final R esult Performing Organization Address [facility] Co de Phone Number [facility] CLIA # [id number] [address] [address] * MAGNESIUM LEVEL (11/19/2022 2:55 AM [employer]) MAGNESIUM 1.9 1.6 - 2.4 mg/dL 11/19/2022 6:43 AM [employer]S [facility] Blood Collection / Unknown 11/19/2022 2:55 AM [employer] 11/19/2022 6:22 AM [employer] Low Amaya DO CHEMISTRY ORDERABLES Final R esult Performing Organization Address [facility] Co de Phone Number [facility] CLIA # [id number] [address] [address] [place] [address] * (ABNORMAL) COMPREHENSIVE METABOLIC PANEL (11/19/2022 2:55 AM [employer]) SODIUM 144 136 - 145 mmol/L 11/19/2022 6:43 AM [facility] POTASSIUM 3.5 3.5 - 5.1 mmol/L 11/19/2022 6:43 AM [facility] CHLORIDE 105 98 - 107 mmol/L 11/19/2022 6:43 AM [facility] CO2 32(H) 22 - 29 mmol/L 11/19/2022 6:43 AM [facility] CALCIUM 9.1 8.8 - 10.2 mg/dL 11/19/2022 6:43 AM [facility] BUN 22 8 - 23 mg/dL 11/19/2022 6:43 AM [facility] CREATININE 0.99 0.67 - 1.17 mg/dL 11/19/2022 6:43 AM [facility] GLUCOSE 169(H) 74 - 99 mg/dL 11/19/2022 6:43 AM [facility] TOTAL PROTEIN 6.6 6.4 - 8.3 g/dL 11/19/2022 6:43 AM [facility] ALBUMIN 3.0(L) 3.5 - 5.2 g/dL 11/19/2022 6:43 AM [facility] BILIRUBIN TOTAL 0.2 0.2 - 1.0 mg/dL 11/19/2022 6:43 AM [facility] ALKALINE PHOSPHATASE 64 40 - 129 U/L 11/19/2022 6:43 AM [facility] AST 13 10 - 50 U/L 11/19/2022 6:43 AM [facility] ALT 8 <=50 U/L 11/19/2022 6:43 AM [facility] GFR >60 >=60 mL/min/1.7 3 sq meter 11/19/2022 6:43 AM [employer] [facility] Comment:eGFR calculated with 2020 CKD-EPI equation. Vegetarian diet, extremely high or low muscle mass, and may affect results. Cystatin C with Glomerular Filtration Rate is a suitable alternative for these patients. ANION GAP 7(L) 9 - 20 mmol/L 11/19/2022 6:43 AM [employer]NC[employer]S [facility] Blood Collection / Unknown 11/19/2022 2:55 AM [employer] 11/19/2022 6:22 AM [employer] us Low Amaya DO CHEMISTRY ORDERABLES Final R esult [facility] CLIA # [id number] [address] [address] documented in this encounter Visit Diagnoses Not on filedocumented in this encounter Additional Health Concerns Infection Onset Date Last Indicated Resolved Time C Diff 11/17/2022 11/17/2022 01/16/2023 1:16 AM CDT documented as of this encounter Care Teams Intraoperative Neuro Tech Relationship Specialty Start Date End Date Shant Ballesteros Jr., MD [address] [place] [address] PCP - General Family Practice 01/19/14 documented as of this encounter
--- OUTSIDE RECORDS SUMMARY | 2025-04-27 16:24 | XMS_ITS | Patient Health Record ---
Author Organization [facility] Address [address] [place] [address] Care Team Providers Care Steel Plate Printer Name Role Phone Kady Floyd Primary Care Provider Bala Wilson Unavailable [phone] KADY FLOYD Unavailable Unavailable Migration, Provider Unavailable Unavailable Miki Johnston Unavailable [phone] Tonya Woodruff Unavailable Allergies Allergen (clinical drug [...] Notes U[place], [place] - [address] Reviewed date:11/05/2024 02:44:16 PM Interpretation: Performing Lab: Notes/Report: Glucose 0 Bili 0 Ketones 0 Sp [place] 1.030 Blood 0 pH 5.5 Protein 1+ [...] IM Intramuscular 08/04/2020 Administered Influenza (whole), CPT 93457 Inactive Unknown 08/12/2018 Administered Pneumococcal polysaccharide PPV23 [...] W/U Status Risk Notes Problem 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 Problem Calculus of kidney (54574216) Calculus of kidney (N20.0) Active confirmed Problem Nephrolithiasis (06529650) Nephrolithiasis (N20.0) Active confirmed Problem Benign hypertension (74305492) Hypertension, benign (I10) Active confirmed Problem Sleep apnea (22430278) Sleep apnea in adult (G47.30) Active confirmed Problem Gout (86823456) Gout (M10.9) Active confirmed Problem Insomnia (899988920) Insomnia, unspecified type (G47.00) Active confirmed Problem Low libido (9976648) Low libido (R68.82) Active confirmed Problem Fatigue (18283810) Fatigue (R53.83) Active conf irmed Problem Atrial fibrillation (86737362) Atrial fibrillation, unspecified type (I48.91) Active confirmed Problem Seasonal allergy (900472940) Seasonal allergies (J30.2) Active confirmed Problem Hypertension (88834402) Hypertension (I10) Active confirmed Problem Asthma without statu s asthmaticus (60642902) Uncomplicated asthma, unspecified asthma severity, unspecified whether persistent (J45.909) Active confirmed Problem Macrocytosis (68870008) Macrocytosis (D75.89) Active confirmed Problem Obstructive sleep apnea syndrome (17296869) Obstructive sleep apnea (adult) (pediatric) (327.23) 2016 Active confirmed [id number]- Problem Lumbosacral spondylosis without myelopathy (99012517) 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 Active confirmed [id number]- Problem Erectile dysfunction (009311936) Erectile dysfunction (302.72) 2013 Active confirmed [id number]- Problem Adjustment disorder with depressed mood (22049916) Adjustment disorder with depressed mood (309.0) 2009 Problem resolved confirmed [id number]- Problem Hand foot and mouth disease (394672661) Hand, foot, and mouth disease (074.3) 2012 Problem resolved confirmed [id number]- Problem Sebaceous cyst (840150651) Sebaceous cyst (706.2) 2013 Problem resolved confirmed [id number]- Problem Seborrhea (3724698783) Seborrhea (706.3) 2013 Problem resolved confirmed [id number]- Problem Pressure ulcer, other site (707.09) 2017 Problem resolved confirmed [id number]- Problem Fever (246298586) Fever, unspeci fied (780.60) 2011 Problem resolved confirmed [id number]- Problem Palpitations (29191911) Palpitations (785.1) 2012 Problem resolved confirmed [id number]- Problem Heartburn (05026297) Heartburn (787.1) 2014 Problem resolved confirmed [facility]on-[id number]- Problem Screening for malignant neoplasm of prostate (224049274) Screening for prostate cancer (V76.44) 2017 Problem resolved confirmed [id number]- Problem Spasm (19246395) Muscle spasm (728.85) 2012 Problem resolved confirmed [id number]-[id number]- Problem Androgen deficiency (71935267) Testosterone deficiency (257.2) 2013 Problem resolved confirmed [facility]on-[id number]- Problem Rash (559340267) Rash (782.1) 2010 Problem resolved confirmed [facility]on-[id number]- Problem Depression (553818550) Depression (311) 2010 Problem resolved confirmed [facility]-[id number] [id number]- Problem Dizziness (992433041) Dizziness (780.4) 0 2010 Problem resolved confirmed [facility]-[id number]- Problem Ventricular tachycardia (32457581) Ventricular tachycardia (427.1) 2007 Problem resolved confirmed [facility]on-[id number]- Problem Hypercholesterolemia (41872242) Hypercholesterolemia (272.0) 2012 Problem resolved confirmed [facility]on-[id number]- Problem Memory loss (81805786) Memory loss (780.9) 2014 Problem resolved confirmed [facility]on-[id number]- Problem Secondary polycythemia (10821515) 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) 2017 Problem resolved confirmed [facility]on-[id number]- Problem Shortness of breath (912481344) Shortness of breath (786.09) 2016 Problem resolved confirmed [facility]-[id number]- Problem Shoulder pain (71820116) Shoulder pain (719.41) 2013 Problem resolved confirmed [facility]on-[id number] [id number]- Problem Disorder of hematopoietic system (24919091) Abnormal findings on blood examination, NEC (790.99) 2013 Problem resolved confirmed [facility]on-[id number]- Problem Angina (237973937) Angina (413.9) 2010 Problem resolved confirmed [facility]-[id number] [id number]- Problem Disorder of anterior pituitary (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) 2011 Problem resolved confirmed [facility]on-[id number] [id number]- Problem Disorder of hematopoietic system (65389569) Other abnormal findings on blood examination (790.99) 2015 Problem resolved confirmed [facility]on-[id number]- Problem Disorder of hematopoietic system (32047620) Other abnormal laboratory result on blood (790.99) 2007 Problem resolved confirmed [facility]on-[id number] [id number]- Problem Atypical mole syndrome (004119738) Atypical mole (238.2) 2008 Problem resolved confirmed [facility]on-[id number] [id number]- Problem Chest pain (70589977) Chest pain (786.51) 2014 Problem resolved confirmed [facility]-[id number] [id number]- Problem Depressive disorder (60776434) Depressive disorder not elsewhere classified (311) 2014 Problem resolved confirmed [facility]on-98 [id number]- Problem Generalized abdomina l pain (252097977) Generalized abdominal pain (789.07) 2008 Problem resolved confirmed [facility]on-[id number]- Problem Lab: Used to mat ch unlinked laboratory orders (V92) 2014 Problem resolved confirmed [facility]on-[id number]- Problem Impaired fasting glycaemia (749610784) Elevated fasting glucose (790.21) 2014 Problem resolved confirmed [facility]on-[id number] [id number]- Problem Hemoglobinopathy (19810901) Elevated hematocrit (282.7) 2014 Problem resolved confirmed [facility]on-[id number] [id number]- Problem Abnormal chest sound s (04507345641307) Egophany (786.7) 2016 Problem resolved confirmed [facility]on-98 [id number]- Problem Insomnia (518026231) Insomnia (307.41) 2012 Problem resolved confirmed [facility]on-[id number] [id number]- Problem Pain in limb (58835512) Leg pain (729.5) 2010 Problem resolved confirmed [facility]on-98 [id number]- Problem Rib pain (457312848) Rib pain (786.50) 2013 Problem resolved confirmed [facility]on-98 [id number]- Problem General examination of patient (876254978) Annual exam (V70.0) 2007 Problem resolved confirmed [facility]on-98 [id number]- Problem Staphylococcal infectious disease (83575120) Staph infection (041.19) 2015 Problem resolved confirmed [facility]on-[id number] [id number]- Problem Heart disease (04883661) Asymmetrical cardiac hypertrophy (429.9) 2007 Problem resolved confirmed [facility]on-98 [id number]- Problem Obstructive sleep apnea (70028768) Obstructive sleep apnea (780.57) 2014 Problem resolved confirmed [facility]on-98 [id number]- Problem Stress (381076929) Stress (300.02) 2008 Problem resolved confirmed [facility]on-98 [id number]- Problem Acute upper respiratory infection (45711415) Acute upper respiratory infection of multiple sites (465.8) 2018 Problem resolved confirmed [facility]on-98 [id number]- Problem Congestion (35176671) Congestion (477.9) 2007 Problem resolved confirmed [facility]on-98 [id number]- Problem Lumbar radiculopathy (869524056) Lumbar radiculopathy (722.10) 2010 Problem resolved confirmed [facility]on-98 [id number]- Problem Acquired polycythemi a (56637099) Acquired polycythemia (289.0) 2016 Problem resolved confirmed [facility]on-98 [id number]- Problem Acute sinusitis (75168085) Acute sinusitis (461.8) 2007 Problem resolved confirmed [facility]on-98 [id number]- Problem Ankle pain (977288761) Ankle pain (719.47) 2013 Problem resolved confirmed [facility]on-98 [id number]- Problem Heart murmur (02069180) Cardiac murmur (785.2) 2007 Problem resolved confirmed [facility]on-[id number] [id number]- Problem Erythrocyte sedimentation rate raised (262890663) Elevated sed rate (ESR) (790.1) 2011 Problem resolved confirmed [facility]on-98 [id number]- Problem Gynecomastia (8683066) Gynecomastia (611.1) 2015 Problem resolved confirmed [facility]on-98 [id number]- Problem Thrombosed external hemorrhoids (15566645) Hemorrhoids, external thrombosed (455.4) 2017 Problem resolved confirmed [facility]on-98 [id number]- Problem Disorder of lipid metabolism (807469637) Low HDL level (272.9) 2010 Problem resolved confirmed [facility]on-98 [id number]- Problem Left ventricular hypertrophy (20858918) LVH (429.3) 2010 Problem resolved confirmed Raomn-98 5911- Problem Cellulitis and abscess of lower leg (992596340) Cellulitis of the leg (682.6) 2013 Problem resolved confirmed Ramon-98 [id number]- Problem Change in voice (556717449) Change in voice (784.49) 2013 Problem resolved confirmed [facility]on-98 [id number]- Problem Acute upper respiratory infection (33962700) Upper respiratory illness (465.8) 2007 Problem resolved confirmed [facility]on-98 [id number]- Problem Kidney stone (24806488) kidney stones (592.0) 2007 Problem resolved confirmed [facility]on-98 5911- Problem Cramp in lower limb (876909904) Leg cramps (729.82) 2017 Problem resolved confirmed [facility]on-98 5911- Problem Low back pain (171877292) Lower back pain (724.2) 2010 Problem resolved confirmed [facility]on-98 5911- Problem Dry mouth (19834695) Dry mouth (527.7) 2014 Problem resolved confirmed [facility]on-98 5911- Problem Essential hypertension (88912991) Essential hypertension (401.1) 2010 Problem resolved confirmed [facility]on-98 5911- Problem Impacted cerumen (99003209) External cerumen impaction (380.4) 2011 Problem resolved confirmed [facility]on-98 5911- Problem Laceration of foot (222878966) Laceration of foot (892.0) 2011 Problem resolved confirmed [facility]on-98 5911- Problem Pedal edema (940308414) Pedal edema (782.3) 2014 Problem resolved confirmed [facility]on-98 5911- Problem Synovial cyst (997022560) Synovial cyst, NOS (727.40) 2017 Problem resolved confirmed [facility]on-98 5911- Problem Thoracic back pain (280031670) Upper back pain (724.5) 2008 Problem resolved confirmed Ramon-98 [id number]- Problem Seborrheic keratosis (610334964) Seborrheic keratosis, other (702.19) 2015 Problem resolved [...] Encounter Location Date Provider Diagnosis [facility] [address] [place] [address] [address] [place] [address] 11/05/2024 Tonya Woodruff Hypertension I10 ; Testicular hypofunction E29.1 ; Nephrolithiasis N20.0 ; Fatigue R53.83 and Low libido R68.82 Migrated_Facility 0 0 07/26/2024 Provider Migration [facility] 0 0 07/25/2024 [facility] [address] [place] [address] 12/11/2024 Tonya Woodruff [facility] [address] [place] [address] 11/27/2024 Tonya Boo[facility] [address] [place] [address] 11/05/2024 Miki Johnston Testicular hypofunct ion E29.1 [facility] [address] [place] [address] 09/25/2024 Miki Johnston [facility] [address] [place] [address] 09/25/2024 Miki Johnston [facility] [address] [place] [address] 07/09/2024 Miki Johnston Testicular hypofunct ion E29.1 [facility] [address] [place] [address] 07/03/2024 Miki Johnston Testicular hypofunct ion E29.1 [facility] [address] [place] [address] 06/19/2024 Miki Johnston Testicular hypofunct ion E29.1 [facility] [address] [place] [address] 06/15/2024 Miki Johnston Calculus of kidney N20.0 Assessments Encounter Date Diagnosis (ICD Code) Assessment [...] lower abdomen and groin. Pain during urination [place], red, or brown urine. Nausea and Vomiting [...] to help pass the stone. Pain Management: Nqad-hff-tzipylt pain relievers like ibuprofen or acetaminophen. Medications: [...] Name Order Date CBC w\ Auto Diff 03902 06/15/2024 CBC w\ Auto Diff 57480 06/19/2024 Comprehensive Metabolic Panel (CMP) 8005 3 06/15/2024 Comprehensive Metabolic Panel (CMP) 8005 3 06/19/2024 Estradiol Level 31443 06/19/2024 Estradiol Level 12226 06/15/2024 Testosterone Total 73033 06/15/2024 Testosterone Total 60094 06/19/2024 Abdomen [id number] 06/15/2024 Future Test Test Name Order Date CBC w\ Auto Diff 41051 03/30/2025 Comprehensive Metabolic Panel (CMP) 8005 3 03/30/2025 Estradiol Level 65400 03/30/2025 PSA Diagnostic--31610 03/30/2025 Testosterone Total 99421 03/30/2025 Next Appt Details Provider Name:Tonya Silverman, 05/05/2025 02:00:00 PM, [address], [place], [address], Insurance Providers Payer Name Payer Address Payer Phone Subscriber Number Group Number Insured Name Patient Relationship to Insured Coverage Start Date Coverage End Date [employer] [place] [employer] [address] [place] [address] [id number] Charan Smith Self - patient is the insured Medical (General) History Medical History History ICD Code Asymmetrical cardiac hypertrophy Hypertension Hypercholesterolemia Sleep apnea Osteoarthritis Testosterone deficiency Erectile dysfunction Depression 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 Maldonado Urologist- Dr. Cage Director Information Security - Dr. Bala Juárez Thyroid tumor, benign 09/2020 Electrocution; 02/2020 Asthma CKD New onset of A-fib Surgical History Surgery Date(Month/Year) Fracture of wrist; 2004 Foot; left 2014 L4-L5 Fusion Hospitalization History Reason Date(Month/Year) New onset Afib 11/07/20 Covid 09/2020
--- OUTSIDE RECORDS SUMMARY | 2025-04-27 16:24 | XMS_ITS | Encounter Summary ---
Author Organization [employer] [facility] Address [address] [place] [address] Care Team Providers Care Health Occupations Teacher Name Role Phone Favian Maldonado MD, Shant Humphreys Primary Care Provider Encounter Details Date Type Department Care Team (Late st Contact Info) Description 11/24/2022 Lab Requisition [facility] Laboratory Services [address] [place] [address] Andre Mary, MADHU [address] [facility] [address] [place] [address] Social History Tobacco Use Types Packs/Day Years Used Date Smoking Tobacco: Never Assessed Sex and Gender Information Value Date Recorded Sex Assigned at Not on file Legal 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 MANAGER RETIREMENT Gender Identity Not on file Sexual Orientation Not on file documented as of this encounter Plan of Treatment Not on file documented as of this encounter Procedures Procedure Name Priority Date/Time Associated Diagnosis Comments EXTRA TUBE (SST/GOLD) Routine 11/24/2022 7:12 PM MANAGER RETIREMENT LACTIC ACID Stat 11/24/2022 7:12 PM MANAGER RETIREMENT PROCALCITONIN Stat 11/24/2022 6:37 PM MANAGER RETIREMENT CBC WITH DIFFERENTIAL Stat 11/24/2022 6:37 PM MANAGER RETIREMENT BLOOD CULTURE Stat 11/24/2022 6:37 PM MANAGER RETIREMENT BLOOD CULTURE Stat 11/24/2022 6:37 PM MANAGER RETIREMENT COMPREHENSIVE METABOLIC PANEL Stat 11/24/2022 6:37 PM MANAGER RETIREMENT documented in this encounter Results * EXTRA TUBE (SST/GOLD) (11/24/2022 7:12 PM MANAGER RETIREMENT) Blood Collection / Unknown 11/24/2022 7:12 PM MANAGER RETIREMENT 11/24/2022 7:42 PM MANAGER RETIREMENT Andre Mary CHEMICAL STRENGTH TESTER CHEMISTRY ORDERABLES Fin al Result Performing Organization Address [facility] Co de Phone Number [facility] CLIA # [id number] [address] [place] [address] * LACTIC ACID (11/24/2022 7:12 PM MANAGER RETIREMENT) LACTIC ACID 1.0 <=2.0 mmol/L 11/24/2022 7:47 PM MANAGER RETIREMENT [facility] Blood Collection / Unknown 11/24/2022 7:12 PM MANAGER RETIREMENT 11/24/2022 7:25 PM MANAGER RETIREMENT Andre Mary CHEMICAL STRENGTH TESTER CHEMISTRY ORDERABLES Fin al Result Performing Organization Address [facility] Co de Phone Number [facility] CLIA # [id number] [address] [place] [address] * PROCALCITONIN (11/24/2022 6:37 PM MANAGER RETIREMENT) PROCALCITONIN 0.08 <=0.08 ng/mL 11/24/2022 8:08 PM MANAGER RETIREMENT [facility] Blood Collection / Unknown 11/24/2022 6:37 PM MANAGER RETIREMENT 11/24/2022 7:25 PM MANAGER RETIREMENT Narrative [facility] - 11/24/2022 8:08 PM MANAGER RETIREMENT The utility of procalcitonin is limited/NOT recommended [...] Result Performing Organization Address [facility]/ZIP Co de Phone Number [facility] CLIA # [id number] [address] [place], [place] [address] * BLOOD CULTURE (11/24/2022 6:37 PM MANAGER RETIREMENT) [facility] Signature BLOOD CULTURE No growth 11/29/2022 10:32 PM MANAGER RETIREMENT [facility] Blood Collection / Unknown 11/24/2022 6:37 PM MANAGER RETIREMENT 11/24/2022 7:25 PM MANAGER RETIREMENT Andre Mary NP MICROBIOLOGY - GENERAL O RDERABLES Final Result Performing Organization Address [facility] Co de Phone Number [facility] CLIA # [id number] [address] [place] [address] * BLOOD CULTURE (11/24/2022 6:37 PM MANAGER RETIREMENT) Pathologist [facility] BLOOD CULTURE No growth 11/29/2022 10:32 PM MANAGER RETIREMENT [facility] Blood Collection / Unknown 11/24/2022 6:37 PM MANAGER RETIREMENT 11/24/2022 7:25 PM MANAGER RETIREMENT Andre Mary NP MICROBIOLOGY - GENERAL O RDERABLES Final Result [facility] CLIA # [id number] [facility] [address] [address] [place] [address] * (ABNORMAL) CBC WITH DIFFERENTIAL (11/24/2022 6:37 PM MANAGER RETIREMENT) [facility] WBC 8.1 4.8 - 10.8 K/uL 11/24/2022 7:42 PM [facility] RBC 2.66(L) 4.60 - 6.20 M/uL 11/24/2022 7:42 PM [facility] HEMOGLOBIN 7.9(L) 14.0 - 18.0 g/dL 11/24/2022 7:42 PM [facility] HEMATOCRIT 27.6(L) 41.0 - 53.0 % 11/24/2022 7:42 PM [facility] MCV 103.8(H) 84.0 - 103.0 fL 11/24/2022 7:42 PM [facility] MCH 29.7 27.0 - 34.0 pg 11/24/2022 7:42 PM [facility] MCHC 28.6(L) 30.0 - 35.0 g/dL 11/24/2022 7:42 PM [facility] RDW 18.6(H) 11.0 - 14.5 % 11/24/2022 7:42 PM [facility] RDW-STDEV 69.4(H) 37.0 - 54.0 fL 11/24/2022 7:42 PM [facility] PLATELETS 248 140 - 440 K/uL 11/24/2022 7:42 PM [facility] MPV 10.3 8.9 - 12.8 fL 11/24/2022 7:42 PM [facility] NEUTROPHILS 73 42 - 75 % 11/24/2022 7:42 PM [facility] LYMPHOCYTES 11(L) 24 - 44 % 11/24/2022 7:42 PM [facility] MONOCYTES 13(H) 2 - 10 % 11/24/2022 7:42 PM [facility] EOSINOPHILS 3 0 - 7 % 11/24/2022 7:42 PM [facility] BASOPHILS 0 0 - 1 % 11/24/2022 7:42 PM [facility] IMMATURE GRANULOCYTES 1 0 - 2 % 11/24/2022 7:42 PM [facility] NEUTROPHIL ABSOLUTE 5.86 2.00 - 8.00 K/uL 11/24/2022 7:42 PM [facility] LYMPHOCYTE ABSOLUTE 0.87(L) 1.20 - 4.00 K/uL 11/24/2022 7:42 PM [facility] MONOCYTE ABSOLUTE 1.02(H) 0.10 - 0.60 K/uL 11/24/2022 7:42 PM [facility] EOSINOPHIL ABSOLUTE 0.21 0.00 - 0.70 K/uL 11/24/2022 7:42 PM [facility] BASOPHILS ABSOLUTE 0.03 0.00 - 0.20 K/uL 11/24/2022 7:42 PM [facility] IMMATURE GRANULOCYTES ABSOLUTE 0.07 0.00 - 0.10 K/uL 11/24/2022 7:42 PM [facility] Blood Collection / Unknown 11/24/2022 6:37 PM MANAGER RETIREMENT 11/24/2022 7:25 PM MANAGER RETIREMENT Andre Mary NP HEMATOLOGY ORDERABLES Fi nal Result [facility] CLIA # [id number] [address] [address] [place] [address] * (ABNORMAL) COMPREHENSIVE METABOLIC PANEL (11/24/2022 6:37 PM [facility]) SODIUM 144 136 - 145 mmol/L 11/24/2022 8:06 PM [facility] POTASSIUM 4.6 3.5 - 5.1 mmol/L 11/24/2022 8:06 PM [facility] CHLORIDE 105 98 - 107 mmol/L 11/24/2022 8:06 PM [facility] CO2 28 22 - 29 mmol/L 11/24/2022 8:06 PM [facility] CALCIUM 9.4 8.8 - 10.2 mg/dL 11/24/2022 8:06 PM [facility] BUN 42(H) 8 - 23 mg/dL 11/24/2022 8:06 PM [facility] CREATININE 1.50(H) 0.67 - 1.17 mg/dL 11/24/2022 8:06 PM [facility] GLUCOSE 102(H) 74 - 99 mg/dL 11/24/2022 8:06 PM [facility] TOTAL PROTEIN 6.5 6.4 - 8.3 g/dL 11/24/2022 8:06 PM [facility] ALBUMIN 2.9(L) 3.5 - 5.2 g/dL 11/24/2022 8:06 PM [facility] BILIRUBIN TOTAL 0.4 0.2 - 1.0 mg/dL 11/24/2022 8:06 PM [facility] ALKALINE PHOSPHATASE 88 40 - 129 U/L 11/24/2022 8:06 PM [facility] AST 12 10 - 50 U/L 11/24/2022 8:06 PM [facility] ALT 9 <=50 U/L 11/24/2022 8:06 PM [facility] GFR 51(L) >=60 mL/min/1. 73 sq meter 11/24/2022 8:06 PM MANAGER RETIREMENT [facility] Comment:eGFR calculated with 2020 CKD-EPI equation. Vegetarian diet, extremely high or low muscle mass, and may affect results. Cystatin C with Glomerular Filtration Rate is a suitable alternative for these patients. ANION GAP 11 9 - 20 mmol/L 11/24/2022 8:06 PM MANAGER RETIREMENT [facility] Blood Collection / Unknown 11/24/2022 6:37 PM MANAGER RETIREMENT 11/24/2022 7:25 PM MANAGER RETIREMENT us Andre Mary CHEMICAL STRENGTH TESTER CHEMISTRY ORDERABLES Fin al Result [facility] CLIA # [id number] [facility] [address] documented in this encounter Visit Diagnoses Not on filedocumented in this encounter Additional Health Concerns Infection Onset Date Last Indicated Resolved Time C Diff 11/17/2022 11/17/2022 01/16/2023 1:16 AM CDT documented as of this encounter Care Teams Health Occupations Teacher Relationship Specialty Start Date End Date Shant Ballesteros Jr., MD [address] [place] [address] PCP - General Family Practice 01/19/14 documented as of this encounter
--- OUTSIDE RECORDS SUMMARY | 2025-04-27 16:24 | XMS_ITS | Encounter Summary ---
Author Organization [employer] [facility] Address [address] [place] [address] Care Team Providers Care Processing Archivist Name Role Phone Favian Maldonado MD, Shant Humphreys Primary Care Provider Encounter Details Date Type Department Care Team (Late st Contact Info) Description 11/19/2022 Lab Requisition [facility] Laboratory Services [address] [place] [address] Low Amaya, DO [address] [place] [address] Social History Tobacco Use Types Packs/Day Years Used Date Smoking Tobacco: Never Assessed Sex and Gender Information Value Date Recorded Sex Assigned at Not on file Legal 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 REGIONAL SALES 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 Gender Identity Not on file Sexual Orientation Not on file documented as of this encounter Plan of Treatment Not on file documented as of this encounter Procedures Procedure Name Priority Date/Time Associated Diagnosis Comments CALCIUM IONIZED Routine 11/19/2022 3:45 PM REGIONAL SALES MANAGER documented in this encounter Results * CALCIUM IONIZED (11/19/2022 3:45 PM REGIONAL SALES MANAGER) CALCIUM IONIZED 5.2 4.8 - 5.6 mg/dL 11/21/2022 10:53 AM REGIONAL SALES MANAGER [facility] Blood Collection / Unknown 11/19/2022 3:45 PM REGIONAL SALES MANAGER 11/20/2022 7:56 AM REGIONAL SALES MANAGER Narrative [facility] - 11/21/2022 10:53 AM REGIONAL SALES MANAGER Performing Organization Information: Site ID: [id number] Name: [facility] Address: [address] [address] Director: Andrew Alvarado MD us Low Amaya DO CHEMISTRY ORDERABLES Final R esult [facility] documented in this encounter Visit Diagnoses Not on filedocumented in this encounter Additional Health Concerns Infection Onset Date Last Indicated Resolved Time C Diff 11/17/2022 11/17/2022 01/16/2023 1:16 AM CDT documented as of this encounter Care Teams Processing Archivist Relationship Specialty Start Date End Date Shant Ballesteros Jr., MD [address] [place] [address] PCP - General Family Practice 01/19/14 documented as of this encounter
--- OUTSIDE RECORDS SUMMARY | 2025-04-27 16:24 | XMS_ITS | Clinical Summary ---
Author Organization [facility] Address [address] [place] [address] Phone Care Team Providers Care Felt Cutter Name Role Phone Favian Maldonado MD, [...] (1 - 1-dose 75+ series) 2030 Insurance [id number] PLUS [id number] HMO Care Teams Felt Cutter Relationship Specialty Start Date End Date Shant Ballesteros Jr., MD [address] [place] [address] PCP - General Family Practice 01/19/14
--- NOTE | 2025-04-27 16:27 | XRR_ITS ---
PROCEDURE INFORMATION: Exam: XR Left Knee Exam date and time: 04/27/2025 4:27 PM Age: 70 years old Clinical indication: Injury or trauma; Fall; Blunt trauma; Knee; Left TECHNIQUE: Imaging protocol: Radiologic exam of the left knee. Views: 3 views. COMPARISON: CR XR knees AP WB w LT lmt ORTH 11/25/2024 2:48 PM FINDINGS: Bones/joints: An old healed fracture involves the proximal fibula. No acute fracture identified. Moderate medial joint space narrowing is noted along with spurring of the medial femoral condyle and medial tibial plateau. Patellar spurring is also noted. No joint effusion. Soft tissues: Normal. XR/XR knee LT 3V* [id number] IMPRESSION: Arthritic changes without fracture
[2025-04-27] MEDS: iohexol 350 mg/mL 500 mL Btl (per mL) IV (16:58)
[2025-04-27] MEDS: ondansetron 2 mg/ML SDV 2 mL 4 MG IVP (17:14)
== END 2025-04-27 18:20 | disposition home or self-care (01) ==
PROVIDERS: Emergency Provider Emergency Medicine; PCP Family Medicine
DX: S80.02XA Contusion of left knee, initial encounter (principal); W19.XXXA Unspecified fall, initial encounter; E78.5 Hyperlipidemia, unspecified; I10 Essential (primary) hypertension; Z87.891 Personal history of nicotine dependence; Z79.82 Long term (current) use of aspirin; Z85.038 Personal history of other malignant neoplasm of large intestine
CPT/HCPCS: 36415; 70450; 71260; 72125; 73562; 74177; 96374; 96375; 99285; J1885; J2405

== ENCOUNTER 2025-05-05 11:23 | Emergency (ER) | payer MEDICARE, SELFPAY ==
--- OUTSIDE RECORDS SUMMARY | 2025-05-05 11:27 | XMS_ITS | Encounter Summary ---
Author Organization [facility] Address [address] [place] [address] Care Team Providers Care Ob/Gyn Nurse Name Role Phone Favian Maldonado MD, Shant Humphreys Primary Care Provider Encounter Details Date Type Department Care Team (Late st Contact Info) Description 12/07/2022 Lab Requisition [facility] Laboratory Services [address] [place] [address] Low Amaya, DO [address] [place] [phone] Social History Tobacco Use Types Packs/Day Years Used Date Smoking Tobacco: Never Assessed Sex and Gender Information Value Date Recorded Sex Assigned at Not on file Legal 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 CONTROL ELECTRICIAN Gender Identity Not on file Sexual Orientation Not on file documented as of this encounter Plan of Treatment Not on file documented as of this encounter Procedures Procedure Name Priority Date/Time Associated Diagnosis Comments PHOSPHORUS Routine 12/07/2022 3:30 AM CONTROL ELECTRICIAN MAGNESIUM LEVEL Routine 12/07/2022 3:30 AM CONTROL ELECTRICIAN BASIC METABOLIC PANEL Routine 12/07/2022 3:30 AM CONTROL ELECTRICIAN documented in this encounter Results * (ABNORMAL) PHOSPHORUS (12/07/2022 3:30 AM CONTROL ELECTRICIAN) PHOSPHORUS 4.7(H) 2.5 - 4.5 mg/dL 12/07/2022 5:41 AM CONTROL ELECTRICIAN [facility] Blood Collection / Unknown 12/07/2022 3:30 AM CONTROL ELECTRICIAN 12/07/2022 5:10 AM CONTROL ELECTRICIAN Low Monique DO CHEMISTRY ORDERABLES Final R esult Performing Organization Address City/[facility]/ZIP Co de Phone Number [facility] CLIA # [id number] [address] [place] [address] * MAGNESIUM LEVEL (12/07/2022 3:30 AM CONTROL ELECTRICIAN) MAGNESIUM 1.9 1.6 - 2.4 mg/dL 12/07/2022 5:41 AM [facility] Blood Collection / Unknown 12/07/2022 3:30 AM CONTROL ELECTRICIAN 12/07/2022 5:10 AM CONTROL ELECTRICIAN Low Amaya DO CHEMISTRY ORDERABLES Final R esult Performing Organization Address City/[facility]/ZIP Co de Phone Number [facility] CLIA # [id number] [address] [place] [address] * (ABNORMAL) BASIC METABOLIC PANEL (12/07/2022 3:30 AM CONTROL ELECTRICIAN) SODIUM 137 136 - 145 mmol/L 12/07/2022 5:41 AM [facility] [employer] [facility] POTASSIUM 4.2 3.5 - 5.1 mmol/L 12/07/2022 5:41 AM [facility] [employer] [facility] CHLORIDE 103 98 - 107 mmol/L 12/07/2022 5:41 AM [facility] [employer] [facility] CO2 26 22 - 29 mmol/L 12/07/2022 5:41 AM [facility] CALCIUM 9.5 8.8 - 10.2 mg/dL 12/07/2022 5:41 AM [facility] [employer] [facility] BUN 36(H) 8 - 23 mg/dL 12/07/2022 5:41 AM [facility] CREATININE 0.95 0.67 - 1.17 mg/dL 12/07/2022 5:41 AM [facility] GLUCOSE 102(H) 74 - 99 mg/dL 12/07/2022 5:41 AM [facility] GFR >60 >=60 mL/min/1.7 3 sq meter 12/07/2022 5:41 AM [facility] Comment:eGFR calculated with 2020 CKD-EPI equation. Vegetarian diet, extremely high or low muscle mass, and may affect results. Cystatin C with Glomerular Filtration Rate is a suitable alternative for these patients. ANION GAP 8(L) 9 - 20 mmol/L 12/07/2022 5:41 AM [facility] Blood Collection / Unknown 12/07/2022 3:30 AM CONTROL ELECTRICIAN 12/07/2022 5:10 AM CONTROL ELECTRICIAN Low Amaya DO CHEMISTRY ORDERABLES Final R esult [facility] CLIA # [id number] [address] [place] [address] documented in this encounter Visit Diagnoses Not on filedocumented in this encounter Additional Health Concerns Infection Onset Date Last Indicated Resolved Time C Diff 11/17/2022 11/17/2022 01/16/2023 1:16 AM CDT documented as of this encounter Care Teams Ob/Gyn Nurse Relationship Specialty Start Date End Date Shant Ballesteros Jr., MD [address] [place] [address] PCP - General Family Practice 01/19/14 documented as of this encounter
--- OUTSIDE RECORDS SUMMARY | 2025-05-05 11:27 | XMS_ITS | Encounter Summary ---
Author Organization [employer] Address [address] [place] [address] Care Team Providers Care Education Reporter Name Role Phone Favian Maldonado MD, Shant Humphreys Primary Care Provider Encounter Details Date Type Department Care Team (Late st Contact Info) Description 12/05/2022 Lab Requisition [facility] Laboratory Services [address] [place] [address] Low Amaya, DO [address] [place] [phone] Social History Tobacco Use Types Packs/Day Years Used Date Smoking Tobacco: Never Assessed Sex and Gender Information Value Date Recorded Sex Assigned at Not on file Legal 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 ROTARY CUTTER Gender Identity Not on file Sexual Orientation Not on file documented as of this encounter Plan of Treatment Not on file documented as of this encounter Procedures Procedure Name Priority Date/Time Associated Diagnosis Comments PHOSPHORUS Routine 12/05/2022 6:30 AM ROTARY CUTTER MAGNESIUM LEVEL Routine 12/05/2022 6:30 AM ROTARY CUTTER BASIC METABOLIC PANEL Routine 12/05/2022 6:30 AM ROTARY CUTTER documented in this encounter Results * MAGNESIUM LEVEL (12/05/2022 6:30 AM ROTARY CUTTER) MAGNESIUM 2.0 1.6 - 2.4 mg/dL 12/05/2022 8:37 AM ROTARY CUTTER [facility] Blood Collection / Unknown 12/05/2022 6:30 AM ROTARY CUTTER 12/05/2022 8:18 AM ROTARY CUTTER Low Amaya DO CHEMISTRY ORDERABLES Final R esult Performing Organization Address [facility]/ZIP Co de Phone Number [facility] CLIA # [id number] [address] [address] * PHOSPHORUS (12/05/2022 6:30 AM ROTARY CUTTER) PHOSPHORUS 4.0 2.5 - 4.5 mg/dL 12/05/2022 8:37 AM [facility] Blood Collection / Unknown 12/05/2022 6:30 AM ROTARY CUTTER 12/05/2022 8:18 AM ROTARY CUTTER Low Amaya DO CHEMISTRY ORDERABLES Final R esult Performing Organization Address [facility] Co de Phone Number [facility] CLIA # [id number] [address] [address] * (ABNORMAL) BASIC METABOLIC PANEL (12/05/2022 6:30 AM ROTARY CUTTER) SODIUM 141 136 - 145 mmol/L 12/05/2022 8:37 AM [facility] POTASSIUM 4.4 3.5 - 5.1 mmol/L 12/05/2022 8:37 AM [facility] CHLORIDE 105 98 - 107 mmol/L 12/05/2022 8:37 AM [facility] CO2 32(H) 22 - 29 mmol/L 12/05/2022 8:37 AM [facility] CALCIUM 10.2 8.8 - 10.2 mg/dL 12/05/2022 8:37 AM [facility] BUN 35(H) 8 - 23 mg/dL 12/05/2022 8:37 AM [facility] CREATININE 0.93 0.67 - 1.17 mg/dL 12/05/2022 8:37 AM [facility] GLUCOSE 116(H) 74 - 99 mg/dL 12/05/2022 8:37 AM [facility] GFR >60 >=60 mL/min/1.7 3 sq meter 12/05/2022 8:37 AM [facility] Comment:eGFR calculated with 2020 CKD-EPI equation. Vegetarian diet, extremely high or low muscle mass, and may affect results. Cystatin C with Glomerular Filtration Rate is a suitable alternative for these patients. ANION GAP 4(L) 9 - 20 mmol/L 12/05/2022 8:37 AM [facility] Blood Collection / Unknown 12/05/2022 6:30 AM ROTARY CUTTER 12/05/2022 8:18 AM ROTARY CUTTER Low Amaya DO CHEMISTRY ORDERABLES Final R esult [id number] [address] [place] [address] documented in this encounter Visit Diagnoses Not on filedocumented in this encounter Additional Health Concerns Infection Onset Date Last Indicated Resolved Time C Diff 11/17/2022 11/17/2022 01/16/2023 1:16 AM CDT documented as of this encounter Care Teams Education Reporter Relationship Specialty Start Date End Date Shant Ballesteros Jr., MD [address] [place] [address] PCP - General Family Practice 01/19/14 documented as of this encounter
--- OUTSIDE RECORDS SUMMARY | 2025-05-05 11:27 | XMS_ITS | Encounter Summary ---
Author Organization [facility] Address [address] [place] [address] Care Team Providers Care Inside Technical Sales Representative Name Role Phone Favian Maldonado MD, Shant Humphreys Primary Care Provider Reason for Referral * Outpatient Services (Routine) - Closed Specialty Diagnoses / Procedures Referred By Delfin jerome Referred To Contact Diagnoses Other nonspecific findings on examination of blood(790.99) Procedures MRI BRAIN W WO CONTRAST Shant Ballesteros Jr., MD [address] [place] [address] Phone: tel: [facility] [place] CALL TO MAKE APPOINTMENT ONLY [address] [place] [address] Phone: tel: fax: Referral ID Status Reason Start Date Expiration Date V isits Requested Visits Authorized [id number] Closed F [facility] TO SCHEDULE ([facility]) 01/18/2014 02/18/2015 1 1 * Outpatient Services (Routine) - Closed Specialty Diagnoses / Procedures Referred By Delfin t Referred To Contact Diagnoses Other nonspecific findings on examination of blood(790.99) Procedures MRA VENOUS HEAD WO CONTRAST Shant Ballesteros Jr., MD [address] [place] [address] Phone: tel: fax: [employer] Pre-Registration [place] CALL TO MAKE APPOINTMENT ONLY [address] [place] [address] Phone: tel: fax: Referral ID Status Reason Start Date Expiration Date V isits Requested Visits Authorized [id number] Closed F [facility] TO SCHEDULE ([facility]) 01/18/2014 02/18/2015 1 1 Encounter Details Date Type Department Care Team (Late st Contact Info) Description 01/18/2014 Ancillary Orders [facility] Pre-Registration [place] CALL TO MAKE APPOINTMENT ONLY [address] [facility] [place] [address] Shant Ballesteros Jr., MD [address] [place] [address] Other nonspecific findings on examination [...] No significant abnormality. Tripp - uploaded from [employer]- Narrative Procedure Note Philippe Mendiola MD - [...] No significant abnormality. Tripp - uploaded from [employer]- us Shant Ballesteros Jr., MD MR ORDERABLES [...] Impression: Unremarkable exam. CHRIS/nikki - uploaded from [employer] - Narrative Procedure Note Philippe Mendiola MD [...] Impression: Unremarkable exam. MWKleber/nikki - uploaded from [employer] - us Shant Ballesteros Jr., MD MR [...] blood documented in this encounter Care Teams Inside Technical Sales Representative Relationship Specialty Start Date End Date Shant Ballesteros Jr., MD [address] [place] [address] PCP - General Family Practice 01/19/14 documented as of this encounter
--- OUTSIDE RECORDS SUMMARY | 2025-05-05 11:27 | XMS_ITS | Encounter Summary ---
Author Organization [facility] Address 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 [address] * (ABNORMAL) COMPREHENSIVE METABOLIC PANEL (12/19/2022 4:50 AM CDT) SODIUM 135(L) 136 - 145 mmol/L 12/19/2022 10:48 AM CDT [facility] POTASSIUM 5.3(H) 3.5 - 5.1 mmol/L 12/19/2022 10:48 AM CDT [facility] CHLORIDE 99 98 - 107 mmol/L 12/19/2022 10:48 AM CDT [facility] CO2 25 22 - 29 mmol/L 12/19/2022 10:48 AM CDT [facility] CALCIUM 10.4(H) 8.8 - 10.2 mg/dL 12/19/2022 10:48 AM CDT [facility] BUN 44(H) 8 - 23 mg/dL 12/19/2022 10:48 AM CDT [facility] CREATININE 1.13 0.67 - 1.17 mg/dL 12/19/2022 10:48 AM CDT [facility] GLUCOSE 116(H) 74 - 99 mg/dL 12/19/2022 10:48 AM T [facility] TOTAL PROTEIN 7.5 6.4 - 8.3 g/dL 12/19/2022 10:48 AM CDT [facility] ALBUMIN 3.8 3.5 - 5.2 g/dL 12/19/2022 10:48 AM CDT [facility] BILIRUBIN TOTAL <0.2(L) 0.2 - 1.0 mg/dL 12/19/2022 10:48 AM CDT [facility] ALKALINE PHOSPHATASE 111 40 - 129 U/L 12/19/2022 10:48 AM CDT [facility] AST 27 10 - 50 U/L 12/19/2022 10:48 AM CDT [facility] ALT 38 <=50 U/L 12/19/2022 10:48 AM CDT [facility] GFR >60 >=60 mL/min/1. 73 sq meter 12/19/2022 10:48 AM CDT [facility] Comment:eGFR calculated with 2020 CKD-EPI equation. Vegetarian diet, extremely high or low muscle mass, and may affect results. Cystatin C with Glomerular Filtration Rate is a suitable alternative for these patients. ANION GAP 11 9 - 20 mmol/L 12/19/2022 10:48 AM CDT [facility] Blood Collection / Unknown 12/19/2022 4:50 AM CDT 12/19/2022 10:29 AM CDT Esther Sarmiento MD CHEMISTRY ORDERABLES Final Resul t [facility] CLIA # [id number] [address] [place] [address] documented in this encounter Visit Diagnoses Not on filedocumented in this encounter Additional Health Concerns Infection Onset Date Last Indicated Resolved Time C Diff 11/17/2022 11/17/2022 01/16/2023 1:16 AM CDT documented as of this encounter Care Teams Piper Helper Relationship Specialty Start Date End Date Shant Ballesteros Jr., MD [address] [place] [address] PCP - General Family Practice 01/19/14 documented as of this encounter
--- OUTSIDE RECORDS SUMMARY | 2025-05-05 11:27 | XMS_ITS | Encounter Summary ---
Author Organization [employer] [facility] Address [address] [place] [address] Care Team Providers Care Vamp Stitcher Name Role Phone Favian Maldonado MD, Shant Humphreys Primary Care Provider Encounter Details Date Type Department Care Team (Late st Contact Info) Description 11/26/2022 Lab Requisition [facility] Laboratory Services [address] [place] [address] Low Amaya, DO [address] [place] [address] Social History Tobacco Use Types Packs/Day Years Used Date Smoking Tobacco: Never Assessed Sex and Gender Information Value Date Recorded Sex Assigned at Not on file Legal 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 CHAIRPERSON ANESTHESIOLOGY Gender Identity Not on file Sexual Orientation Not on file documented as of this encounter Plan of Treatment Not on file documented as of this encounter Procedures Procedure Name Priority Date/Time Associated Diagnosis Comments CALCIUM IONIZED Routine 11/26/2022 6:20 AM CHAIRPERSON ANESTHESIOLOGY documented in this encounter Results * CALCIUM IONIZED (11/26/2022 6:20 AM CHAIRPERSON ANESTHESIOLOGY) CALCIUM IONIZED 5.3 4.8 - 5.6 mg/dL 11/27/2022 9:49 AM CHAIRPERSON ANESTHESIOLOGY [facility] Blood Collection / Unknown 11/26/2022 6:20 AM CHAIRPERSON ANESTHESIOLOGY 11/26/2022 9:28 AM CHAIRPERSON ANESTHESIOLOGY Narrative [facility] - 11/27/2022 9:49 AM CHAIRPERSON ANESTHESIOLOGY Performing Organization Information: Site ID: [id number] Name: [facility] Address: [address] [address] Director: Andrew Alvarado MD us Low Amaya DO CHEMISTRY ORDERABLES Final R esult [facility] documented in this encounter Visit Diagnoses Not on filedocumented in this encounter Additional Health Concerns Infection Onset Date Last Indicated Resolved Time C Diff 11/17/2022 11/17/2022 01/16/2023 1:16 AM CDT documented as of this encounter Care Teams Vamp Stitcher Relationship Specialty Start Date End Date Shant Ballesteros Jr., MD [address] [place] [address] PCP - General Family Practice 01/19/14 documented as of this encounter
--- OUTSIDE RECORDS SUMMARY | 2025-05-05 11:27 | XMS_ITS | Encounter Summary ---
Author Organization [facility] Address [address] [place] [address] Care Team Providers Care Syrup Mixer Assistant Name Role Phone Favian Maldonado MD, Shant Humphreys Primary Care Provider Encounter Details Date Type Department Care Team (Late st Contact Info) Description 12/17/2022 Lab Requisition [facility] Laboratory Services [address] [place] [address] Andre Mary, MADHU [address] [facility] [address] [place] [address] Social History Tobacco Use Types Packs/Day Years Used Date Smoking Tobacco: Never Assessed Sex and Gender Information Value Date Recorded Sex Assigned at Not on file Legal 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 QUANTITATIVE ANALYST DEVELOPER Gender Identity Not on file Sexual [...] - 10.8 K/uL 12/17/2022 6:20 AM CDT [facility] RBC 3.85(L) 4.60 - 6.20 M/uL 12/17/2022 6:20 AM CDT [facility] HEMOGLOBIN 11.5(L) 14.0 - 18.0 g/dL 12/17/2022 6:20 AM [facility] HEMATOCRIT 36.6(L) 41.0 - 53.0 % 12/17/2022 6:20 AM [facility] MCV 95.1 84.0 - 103.0 fL 12/17/2022 6:20 AM [facility] MCH 29.9 27.0 - 34.0 pg 12/17/2022 6:20 AM [facility] MCHC 31.4 30.0 - 35.0 g/dL 12/17/2022 6:20 AM [facility] RDW 15.6(H) 11.0 - 14.5 % 12/17/2022 6:20 AM [facility] RDW-STDEV 54.4(H) 37.0 - 54.0 fL 12/17/2022 6:20 AM [facility] PLATELETS 282 140 - 440 K/uL 12/17/2022 6:20 AM [facility] MPV 10.7 8.9 - 12.8 fL 12/17/2022 6:20 AM [facility] NEUTROPHILS 58 42 - 75 % 12/17/2022 6:20 AM [facility] LYMPHOCYTES 22(L) 24 - 44 % 12/17/2022 6:20 AM [facility] MONOCYTES 12(H) 2 - 10 % 12/17/2022 6:20 AM [facility] EOSINOPHILS 8(H) 0 - 7 % 12/17/2022 6:20 AM [facility] BASOPHILS 1 0 - 1 % 12/17/2022 6:20 AM [facility] IMMATURE GRANULOCYTES 1 0 - 2 % 12/17/2022 6:20 AM [facility] NEUTROPHIL ABSOLUTE 4.48 2.00 - 8.00 K/uL 12/17/2022 6:20 AM [facility] LYMPHOCYTE ABSOLUTE 1.67 1.20 - 4.00 K/uL 12/17/2022 6:20 AM CDT [facility] MONOCYTE ABSOLUTE 0.90(H) 0.10 - 0.60 K/uL 12/17/2022 6:20 AM CDT [facility] EOSINOPHIL ABSOLUTE 0.61 0.00 - 0.70 K/uL 12/17/2022 6:20 AM CDT [facility] BASOPHILS ABSOLUTE 0.06 0.00 - 0.20 K/uL 12/17/2022 6:20 AM CDT [facility] IMMATURE GRANULOCYTES ABSOLUTE 0.04 0.00 - 0.10 K/uL 12/17/2022 6:20 AM CDT [facility] Blood Collection / Unknown 12/17/2022 3:30 AM CDT 12/17/2022 6:14 AM CDT us Andre Mary STEAM FRAME OPERATOR HEMATOLOGY ORDERABLES Fi nal Result Performing Organization Address City/State/[facility] Co de Phone Number [facility] CLIA # [id number] [facility] [address] documented in this encounter Visit Diagnoses Not on filedocumented in this encounter Additional Health Concerns Infection Onset Date Last Indicated Resolved Time C Diff 11/17/2022 11/17/2022 01/16/2023 1:16 AM CDT documented as of this encounter Care Teams Syrup Mixer Assistant Relationship Specialty Start Date End Date Shant Ballesteros Jr., MD [address] [place] [address] PCP - General Family Practice 01/19/14 documented as of this encounter
--- OUTSIDE RECORDS SUMMARY | 2025-05-05 11:27 | XMS_ITS | Encounter Summary ---
Author Organization [facility] Address [address] [place] [address] Care Team Providers Care Expense Clerk Name Role Phone Favian Maldonado MD, Shant Humphreys Primary Care Provider Encounter Details Date Type Department Care Team (Late st Contact Info) Description 11/29/2022 Lab Requisition [facility] Laboratory Services [address] [place] [address] Andre Mary, MADHU [address] [facility] [address] [place] [address] Social History Tobacco Use Types Packs/Day Years Used Date Smoking Tobacco: Never Assessed Sex and Gender Information Value Date Recorded Sex Assigned at Not on file Legal 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 EMERGENCY MEDICAL SERVICES COORDINATOR Gender Identity Not on file Sexual Orientation Not on file documented as of this encounter Plan of Treatment Not on file documented as of this encounter Procedures Procedure Name Priority Date/Time Associated Diagnosis Comments CBC WITH DIFFERENTIAL Routine 11/29/2022 4:15 AM EMERGENCY MEDICAL SERVICES COORDINATOR documented in this encounter Results * (ABNORMAL) CBC WITH DIFFERENTIAL (11/29/2022 4:15 AM EMERGENCY MEDICAL SERVICES COORDINATOR) WBC 6.6 4.8 - 10.8 K/uL 11/29/2022 7:02 AM EMERGENCY MEDICAL SERVICES COORDINATOR [facility] RBC 2.98(L) 4.60 - 6.20 M/uL 11/29/2022 7:02 AM EMERGENCY MEDICAL SERVICES COORDINATOR [facility] HEMOGLOBIN 9.0(L) 14.0 - 18.0 g/dL 11/29/2022 7:02 AM [facility] HEMATOCRIT 29.9(L) 41.0 - 53.0 % 11/29/2022 7:02 AM [facility] MCV 100.3 84.0 - 103.0 fL 11/29/2022 7:02 AM [facility] MCH 30.2 27.0 - 34.0 pg 11/29/2022 7:02 AM [facility] MCHC 30.1 30.0 - 35.0 g/dL 11/29/2022 7:02 AM [facility] RDW 18.0(H) 11.0 - 14.5 % 11/29/2022 7:02 AM [facility] RDW-STDEV 65.1(H) 37.0 - 54.0 fL 11/29/2022 7:02 AM [facility] PLATELETS 226 140 - 440 K/uL 11/29/2022 7:02 AM [facility] MPV 10.5 8.9 - 12.8 fL 11/29/2022 7:02 AM [facility] NEUTROPHILS 67 42 - 75 % 11/29/2022 7:02 AM [facility] LYMPHOCYTES 13(L) 24 - 44 % 11/29/2022 7:02 AM [facility] MONOCYTES 13(H) 2 - 10 % 11/29/2022 7:02 AM [facility] EOSINOPHILS 6 0 - 7 % 11/29/2022 7:02 AM [facility] BASOPHILS 1 0 - 1 % 11/29/2022 7:02 AM [facility] IMMATURE GRANULOCYTES 1 0 - 2 % 11/29/2022 7:02 AM [facility] NEUTROPHIL ABSOLUTE 4.47 2.00 - 8.00 K/uL 11/29/2022 7:02 AM [facility] LYMPHOCYTE ABSOLUTE 0.88(L) 1.20 - 4.00 K/uL 11/29/2022 7:02 AM [facility] MONOCYTE ABSOLUTE 0.85(H) 0.10 - 0.60 K/uL 11/29/2022 7:02 AM EMERGENCY MEDICAL SERVICES COORDINATOR [facility] EOSINOPHIL ABSOLUTE 0.37 0.00 - 0.70 K/uL 11/29/2022 7:02 AM [facility] BASOPHILS ABSOLUTE 0.04 0.00 - 0.20 K/uL 11/29/2022 7:02 AM [facility] IMMATURE GRANULOCYTES ABSOLUTE 0.03 0.00 - 0.10 K/uL 11/29/2022 7:02 AM [facility] Blood Collection / Unknown 11/29/2022 4:15 AM EMERGENCY MEDICAL SERVICES COORDINATOR 11/29/2022 6:48 AM EMERGENCY MEDICAL SERVICES COORDINATOR us Andre Mary QUALITY IMPROVEMENT ANALYST HEMATOLOGY ORDERABLES Fi nal Result [facility] CLIA # [id number] [address] [place] [address] documented in this encounter Visit Diagnoses Not on filedocumented in this encounter Additional Health Concerns Infection Onset Date Last Indicated Resolved Time C Diff 11/17/2022 11/17/2022 01/16/2023 1:16 AM CDT documented as of this encounter Care Teams Expense Clerk Relationship Specialty Start Date End Date Shant Ballesteros Jr., MD [address] [place] [address] PCP - General Family Practice 01/19/14 documented as of this encounter
--- OUTSIDE RECORDS SUMMARY | 2025-05-05 11:27 | XMS_ITS | Encounter Summary ---
Author Organization [facility] Address [address] [place] [address] Care Team Providers Care Building Code Inspector Name Role Phone Favian Maldonado MD, Shant Humphreys Primary Care Provider Encounter Details Date Type Department Care Team (Late st Contact Info) Description 12/05/2022 Lab Requisition [facility] Laboratory Services [address] [place] [address] [place] [address] Low Amaya, DO [address] [place] [phone] Social History Tobacco Use Types Packs/Day Years Used Date Smoking Tobacco: Never Assessed Sex and Gender Information Value Date Recorded Sex Assigned at Not on file Legal 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 NUCLEAR POWER REACTOR OPERATOR Gender Identity Not on file Sexual Orientation Not on file documented as of this encounter Plan of Treatment Not on file documented as of this encounter Procedures Procedure Name Priority Date/Time Associated Diagnosis Comments PHOSPHORUS Routine 12/05/2022 3:30 AM NUCLEAR POWER REACTOR OPERATOR MAGNESIUM LEVEL Routine 12/05/2022 3:30 AM NUCLEAR POWER REACTOR OPERATOR documented in this encounter Results * MAGNESIUM LEVEL (12/05/2022 3:30 AM NUCLEAR POWER REACTOR OPERATOR) MAGNESIUM 12/05/2022 7:00 AM NUCLEAR POWER REACTOR OPERATOR [facility] SERVICES [facility] Comment: Contaminated specimen, called to Humble Garcia This is a corrected result. Previous result was 1.7 mg/dL on 12/05/2022 at 0553 NUCLEAR POWER REACTOR OPERATOR Blood Collection / Unknown 12/05/2022 3:30 AM NUCLEAR POWER REACTOR OPERATOR 12/05/2022 5:21 AM NUCLEAR POWER REACTOR OPERATOR Narrative [facility] - 12/05/2022 7:00 AM NUCLEAR POWER REACTOR OPERATOR To be credited Contaminated specimen Low Finley Monique DO CHEMISTRY ORDERABLES Edited Result - Final Performing Organization Address City/[facility]/ZIP Co de Phone Number [facility] CLIA # [id number] [address] [facility] [place] [address] * PHOSPHORUS (12/05/2022 3:30 AM NUCLEAR POWER REACTOR OPERATOR) PHOSPHORUS 12/05/2022 7:02 AM NUCLEAR POWER REACTOR OPERATOR [facility] Comment: Contaminated specimen. To be credited, called to Humble Garcia This is a corrected result. Previous result was 4.6 mg/dL on 12/05/2022 at 0553 [facility] Blood Collection / Unknown 12/05/2022 3:30 AM NUCLEAR POWER REACTOR OPERATOR 12/05/2022 5:21 AM NUCLEAR POWER REACTOR OPERATOR Low Finley Monique DO CHEMISTRY ORDERABLES Edited Result - Final Performing Organization Address [facility] Co de Phone Number [facility] CLIA # [id number] [address] [place] [address] documented in this encounter Visit Diagnoses Not on filedocumented in this encounter Additional Health Concerns Infection Onset Date Last Indicated Resolved Time C Diff 11/17/2022 11/17/2022 01/16/2023 1:16 AM CDT documented as of this encounter Care Teams Building Code Inspector Relationship Specialty Start Date End Date Shant Ballesteros Jr., MD [address] [place] [address] PCP - General Family Practice 01/19/14 documented as of this encounter
--- OUTSIDE RECORDS SUMMARY | 2025-05-05 11:27 | XMS_ITS | Encounter Summary ---
Author Organization [employer] Address [address] [place] [address] Care Team Providers Care Peel Oven Tender Name Role Phone Favian Maldonado MD, Shant Humphreys Primary Care Provider Encounter Details Date Type Department Care Team (Late st Contact Info) Description 11/28/2022 Lab Requisition [facility] Laboratory Services [address] [place] [address] [place] [address] Low Amaya, DO [address] [place] [address] Social History Tobacco Use Types Packs/Day Years Used Date Smoking Tobacco: Never Assessed Sex and Gender Information Value Date Recorded Sex Assigned at Not on file Legal 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 OUTREACH REP Gender Identity Not on file Sexual Orientation Not on file documented as of this encounter Plan of Treatment Not on file documented as of this encounter Visit Diagnoses Not on filedocumented in this encounter Additional Health Concerns Infection Onset Date Last Indicated Resolved Time C Diff 11/17/2022 11/17/2022 01/16/2023 1:16 AM CDT documented as of this encounter Care Teams Peel Oven Tender Relationship Specialty Start Date End Date Shant Ballesteros Jr., MD [address] [place] [address] PCP - General Family Practice 01/19/14 documented as of this encounter
--- OUTSIDE RECORDS SUMMARY | 2025-05-05 11:27 | XMS_ITS | Encounter Summary ---
Author Organization [employer] Address [address] [place] [address] Care Team Providers Care Technician Trainee Name Role Phone Favian Maldonado MD, Shant Humphreys Primary Care Provider Encounter Details Date Type Department Care Team (Late st Contact Info) Description 12/02/2022 Lab Requisition [facility] Laboratory Services [address] [place] [address] [place] [address] Joelle David MD [address] [facility] [address] [place] [id number] Social History Tobacco Use Types Packs/Day Years Used Date Smoking Tobacco: Never Assessed Sex and Gender Information Value Date Recorded Sex Assigned at Not on file Legal 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 ASSISTANT MERCHANDISE MANAGER Gender Identity Not on file Sexual Orientation Not on file documented as of this encounter Plan of Treatment Not on file documented as of this encounter Procedures Procedure Name Priority Date/Time Associated Diagnosis Comments C-REACTIVE PROTEIN Routine 12/02/2022 3: 50 AM ASSISTANT MERCHANDISE MANAGER documented in this encounter Results * (ABNORMAL) C-REACTIVE PROTEIN (12/02/2022 3:50 AM ASSISTANT MERCHANDISE MANAGER) CRP 19.3(H) 0.0 - 5.0 mg/L 12/02/2022 5:27 AM ASSISTANT MERCHANDISE MANAGER [facility] LABORATORY SERVICES [facility] Blood Collection / Unknown 12/02/2022 3:50 AM ASSISTANT MERCHANDISE MANAGER 12/02/2022 5:13 AM ASSISTANT MERCHANDISE MANAGER Joelle David MD CHEMISTRY ORDERABLES Final Resu lt [facility] # [id number] [address] [facility] [place] [address] documented in this encounter Visit Diagnoses Not on filedocumented in this encounter Additional Health Concerns Infection Onset Date Last Indicated Resolved Time C Diff 11/17/2022 11/17/2022 01/16/2023 1:16 AM CDT documented as of this encounter Care Teams Technician Trainee Relationship Specialty Start Date End Date Shant Ballesteros Jr., MD [address] [place] [address] PCP - General Family Practice 01/19/14 documented as of this encounter
--- OUTSIDE RECORDS SUMMARY | 2025-05-05 11:27 | XMS_ITS | Encounter Summary ---
Author Organization [facility] Address [address] [place] [address] Care Team Providers Care Solar Energy System Installer Helper Name Role Phone Favian Maldonado MD, Shant Humphreys Primary Care Provider Encounter Details Date Type Department Care Team (Late st Contact Info) Description 12/06/2022 Lab Requisition [facility] Laboratory Services [address] [place] [address] [place] [address] Deborah Aguilar MD [address] [place] [address] Social History Tobacco Use Types Packs/Day Years Used Date Smoking Tobacco: Never Assessed Sex and Gender Information Value Date Recorded Sex Assigned at Not on file Legal 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 RECREATION PROFESSOR Gender Identity Not on file Sexual Orientation Not on file documented as of this encounter Plan of Treatment Not on file documented as of this encounter Procedures Procedure Name Priority Date/Time Associated Diagnosis Comments CBC WITH DIFFERENTIAL Routine 12/06/2022 4:50 PM RECREATION PROFESSOR documented in this encounter Results * (ABNORMAL) CBC WITH DIFFERENTIAL (12/06/2022 4:50 PM RECREATION PROFESSOR) WBC 7.0 4.8 - 10.8 K/uL 12/06/2022 6:27 PM RECREATION PROFESSOR [facility] RBC 3.23(L) 4.60 - 6.20 M/uL 12/06/2022 6:27 PM RECREATION PROFESSOR [facility] HEMOGLOBIN 9.6(L) 14.0 - 18.0 g/dL 12/06/2022 6:27 PM [facility] HEMATOCRIT 31.3(L) 41.0 - 53.0 % 12/06/2022 6:27 PM [facility] MCV 96.9 84.0 - 103.0 fL 12/06/2022 6:27 PM [facility] MCH 29.7 27.0 - 34.0 pg 12/06/2022 6:27 PM [facility] MCHC 30.7 30.0 - 35.0 g/dL 12/06/2022 6:27 PM [facility] RDW 16.9(H) 11.0 - 14.5 % 12/06/2022 6:27 PM [facility] RDW-STDEV 60.0(H) 37.0 - 54.0 fL 12/06/2022 6:27 PM [facility] PLATELETS 247 140 - 440 K/uL 12/06/2022 6:27 PM [facility] MPV 10.5 8.9 - 12.8 fL 12/06/2022 6:27 PM [facility] NEUTROPHILS 57 42 - 75 % 12/06/2022 6:27 PM [facility] LYMPHOCYTES 20(L) 24 - 44 % 12/06/2022 6:27 PM [facility] MONOCYTES 11(H) 2 - 10 % 12/06/2022 6:27 PM [facility] EOSINOPHILS 11(H) 0 - 7 % 12/06/2022 6:27 PM [facility] BASOPHILS 1 0 - 1 % 12/06/2022 6:27 PM [facility] IMMATURE GRANULOCYTES 0 0 - 2 % 12/06/2022 6:27 PM [facility] NEUTROPHIL ABSOLUTE 3.99 2.00 - 8.00 K/uL 12/06/2022 6:27 PM [facility] LYMPHOCYTE ABSOLUTE 1.43 1.20 - 4.00 K/uL 12/06/2022 6:27 PM [facility] MONOCYTE ABSOLUTE 0.77(H) 0.10 - 0.60 K/uL 12/06/2022 6:27 PM RECREATION PROFESSOR [facility] EOSINOPHIL ABSOLUTE 0.76(H) 0.00 - 0.70 K/uL 12/06/2022 6:27 PM RECREATION PROFESSOR [facility] BASOPHILS ABSOLUTE 0.04 0.00 - 0.20 K/uL 12/06/2022 6:27 PM RECREATION PROFESSOR [facility] IMMATURE GRANULOCYTES ABSOLUTE 0.02 0.00 - 0.10 K/uL 12/06/2022 6:27 PM RECREATION PROFESSOR [facility] Blood Collection / Unknown 12/06/2022 4:50 PM RECREATION PROFESSOR 12/06/2022 6:16 PM RECREATION PROFESSOR us Deborah Aguilar MD HEMATOLOGY ORDERABLES Final Res ult [facility] CLIA # [id number] [facility] [address] documented in this encounter Visit Diagnoses Not on filedocumented in this encounter Additional Health Concerns Infection Onset Date Last Indicated Resolved Time C Diff 11/17/2022 11/17/2022 01/16/2023 1:16 AM CDT documented as of this encounter Care Teams Solar Energy System Installer Helper Relationship Specialty Start Date End Date Shant Ballesteros Jr., MD [address] [place] [address] PCP - General Family Practice 01/19/14 documented as of this encounter
--- OUTSIDE RECORDS SUMMARY | 2025-05-05 11:27 | XMS_ITS | Encounter Summary ---
Author Organization [facility] Address [address] [place] [address] Care Team Providers Care Seo Associate Name Role Phone Favian Maldonado MD, Shant Humphreys Primary Care Provider Encounter Details Date Type Department Care Team (Late st Contact Info) Description 12/03/2022 Lab Requisition [facility] Laboratory Services [address] [place] [address] Andre Mary, MADHU [address] [facility] [address] [place] [address] Social History Tobacco Use Types Packs/Day Years Used Date Smoking Tobacco: Never Assessed Sex and Gender Information Value Date Recorded Sex Assigned at Not on file Legal 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 FISHING TOOL OPERATOR Gender Identity Not on file Sexual Orientation Not on file documented as of this encounter Plan of Treatment Not on file documented as of this encounter Procedures Procedure Name Priority Date/Time Associated Diagnosis Comments CBC WITH DIFFERENTIAL Routine 12/03/2022 2:00 AM FISHING TOOL OPERATOR TRIGLYCERIDE Routine 12/03/2022 2:00 AM FISHING TOOL OPERATOR PHOSPHORUS Routine 12/03/2022 2:00 AM FISHING TOOL OPERATOR MAGNESIUM LEVEL Routine 12/03/2022 2:00 AM FISHING TOOL OPERATOR COMPREHENSIVE METABOLIC PANEL Routine 12/03/2022 2:00 AM FISHING TOOL OPERATOR documented in this encounter Results * MAGNESIUM LEVEL (12/03/2022 2:00 AM FISHING TOOL OPERATOR) MAGNESIUM 1.9 1.6 - 2.4 mg/dL 12/03/2022 7:06 AM [facility] Blood Collection / Unknown 12/03/2022 2:00 AM FISHING TOOL OPERATOR 12/03/2022 6:33 AM FISHING TOOL OPERATOR Andre Mary WOOD GANG SAWYER CHEMISTRY ORDERABLES Fin al Result Performing Organization Address [facility] de Phone Number [facility] CLIA # [id number] [address] [place], [place] [address] * (ABNORMAL) TRIGLYCERIDE (12/03/2022 2:00 AM FISHING TOOL OPERATOR) Pathologist [facility] TRIGLYCERIDE 163(H) <150 mg/dL 12/03/2022 7:06 AM [facility] Blood Collection / Unknown 12/03/2022 2:00 AM FISHING TOOL OPERATOR 12/03/2022 6:33 AM FISHING TOOL OPERATOR Narrative [facility] - 12/03/2022 7:06 AM FISHING TOOL OPERATOR TRIGLYCERIDES mg/dL Normal < 150 Borderline High 150 - 199 High 200 - 499 Very High >= 500 Based on AHA/NCEP Guidelines. Andre Mary WOOD GANG SAWYER CHEMISTRY ORDERABLES Fin al Result Performing Organization Address [facility] de Phone Number [facility] CLIA # [id number] [address] [facility] [place], [place] [address] * PHOSPHORUS (12/03/2022 2:00 AM FISHING TOOL OPERATOR) Pathologist [facility] PHOSPHORUS 3.3 2.5 - 4.5 mg/dL 12/03/2022 7:06 AM [facility] Blood Collection / Unknown 12/03/2022 2:00 AM FISHING TOOL OPERATOR 12/03/2022 6:33 AM FISHING TOOL OPERATOR us Andre Mary NP CHEMISTRY ORDERABLES Fin al Result [facility] CLIA # [id number] [address] [facility] [facility] [place] [address] * (ABNORMAL) CBC WITH DIFFERENTIAL (12/03/2022 2:00 AM FISHING TOOL OPERATOR) [facility] WBC 6.5 4.8 - 10.8 K/uL 12/03/2022 6:40 AM [facility] RBC 3.05(L) 4.60 - 6.20 M/uL 12/03/2022 6:40 AM [facility] HEMOGLOBIN 9.1(L) 14.0 - 18.0 g/dL 12/03/2022 6:40 AM [facility] HEMATOCRIT 30.4(L) 41.0 - 53.0 % 12/03/2022 6:40 AM [facility] MCV 99.7 84.0 - 103.0 fL 12/03/2022 6:40 AM [facility] MCH 29.8 27.0 - 34.0 pg 12/03/2022 6:40 AM [facility] MCHC 29.9(L) 30.0 - 35.0 g/dL 12/03/2022 6:40 AM [facility] RDW 17.5(H) 11.0 - 14.5 % 12/03/2022 6:40 AM [facility] RDW-STDEV 63.8(H) 37.0 - 54.0 fL 12/03/2022 6:40 AM [facility] PLATELETS 247 140 - 440 K/uL 12/03/2022 6:40 AM [facility] MPV 10.6 8.9 - 12.8 fL 12/03/2022 6:40 AM [facility] NEUTROPHILS 57 42 - 75 % 12/03/2022 6:40 AM [facility] LYMPHOCYTES 19(L) 24 - 44 % 12/03/2022 6:40 AM [facility] MONOCYTES 12(H) 2 - 10 % 12/03/2022 6:40 AM [facility] EOSINOPHILS 11(H) 0 - 7 % 12/03/2022 6:40 AM [facility] BASOPHILS 1 0 - 1 % 12/03/2022 6:40 AM [facility] IMMATURE GRANULOCYTES 1 0 - 2 % 12/03/2022 6:40 AM [facility] NEUTROPHIL ABSOLUTE 3.68 2.00 - 8.00 K/uL 12/03/2022 6:40 AM [facility] LYMPHOCYTE ABSOLUTE 1.22 1.20 - 4.00 K/uL 12/03/2022 6:40 AM [facility] MONOCYTE ABSOLUTE 0.80(H) 0.10 - 0.60 K/uL 12/03/2022 6:40 AM [facility] EOSINOPHIL ABSOLUTE 0.69 0.00 - 0.70 K/uL 12/03/2022 6:40 AM [facility] BASOPHILS ABSOLUTE 0.06 0.00 - 0.20 K/uL 12/03/2022 6:40 AM [facility] IMMATURE GRANULOCYTES ABSOLUTE 0.03 0.00 - 0.10 K/uL 12/03/2022 6:40 AM [facility] Blood Collection / Unknown 12/03/2022 2:00 AM FISHING TOOL OPERATOR 12/03/2022 6:32 AM [facility] us Andre Mary WOOD GANG SAWYER HEMATOLOGY ORDERABLES Fi nal Result [facility] CLIA # [id number] [address] [facility] [place], [place] [id number] * (ABNORMAL) COMPREHENSIVE METABOLIC PANEL (12/03/2022 2:00 AM FISHING TOOL OPERATOR) [facility] SODIUM 140 136 - 145 mmol/L 12/03/2022 7:06 AM [facility] POTASSIUM 3.5 3.5 - 5.1 mmol/L 12/03/2022 7:06 AM [facility] CHLORIDE 101 98 - 107 mmol/L 12/03/2022 7:06 AM [facility] CO2 31(H) 22 - 29 mmol/L 12/03/2022 7:06 AM [facility] CALCIUM 9.8 8.8 - 10.2 mg/dL 12/03/2022 7:06 AM [facility] BUN 28(H) 8 - 23 mg/dL 12/03/2022 7:06 AM [facility] CREATININE 0.88 0.67 - 1.17 mg/dL 12/03/2022 7:06 AM [facility] GLUCOSE 130(H) 74 - 99 mg/dL 12/03/2022 7:06 AM [facility] TOTAL PROTEIN 6.8 6.4 - 8.3 g/dL 12/03/2022 7:06 AM [facility] ALBUMIN 3.1(L) 3.5 - 5.2 g/dL 12/03/2022 7:06 AM [facility] BILIRUBIN TOTAL 0.3 0.2 - 1.0 mg/dL 12/03/2022 7:06 AM [facility] ALKALINE PHOSPHATASE 104 40 - 129 U/L 12/03/2022 7:06 AM [facility] AST 19 10 - 50 U/L 12/03/2022 7:06 AM [facility] ALT 14 <=50 U/L 12/03/2022 7:06 AM [facility] GFR >60 >=60 mL/min/1.7 3 sq meter 12/03/2022 7:06 AM [facility] Comment:eGFR calculated with 2020 CKD-EPI equation. Vegetarian diet, extremely high or low muscle mass, and may affect results. Cystatin C with Glomerular Filtration Rate is a suitable alternative for these patients. ANION GAP 8(L) 9 - 20 mmol/L 12/03/2022 7:06 AM FISHING TOOL OPERATOR [facility] Blood Collection / Unknown 12/03/2022 2:00 AM FISHING TOOL OPERATOR 12/03/2022 6:33 AM FISHING TOOL OPERATOR us Andre Mary WOOD GANG SAWYER CHEMISTRY ORDERABLES Fin al Result [facility] CLIA # [id number] [facility] [address] [place] [address] documented in this encounter Visit Diagnoses Not on filedocumented in this encounter Additional Health Concerns Infection Onset Date Last Indicated Resolved Time C Diff 11/17/2022 11/17/2022 01/16/2023 1:16 AM CDT documented as of this encounter Care Teams Seo Associate Relationship Specialty Start Date End Date Shant Ballesteros Jr., MD [address] [place] [address] PCP - General Family Practice 01/19/14 documented as of this encounter
--- OUTSIDE RECORDS SUMMARY | 2025-05-05 11:27 | XMS_ITS | Encounter Summary ---
Author Organization [employer] Address [address] [place] [address] Care Team Providers Care Software Engineering Manager Name Role Phone Favian Maldonado MD, Shant Humphreys Primary Care Provider Encounter Details Date Type Department Care Team (Late st Contact Info) Description 12/09/2022 Lab Requisition 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 Gender Identity Not on file Sexual [...] - 4.5 mg/dL 12/09/2022 6:34 AM CDT [facility] [place] [facility] Blood Collection / Unknown 12/09/2022 4:20 AM CDT 12/09/2022 6:15 AM CDT Esther Sarmiento MD CHEMISTRY ORDERABLES Final Resul t Performing Organization Address [facility] Co de Phone Number [facility] CLIA # [id number] [address] [address] * MAGNESIUM LEVEL (12/09/2022 4:20 AM CDT) MAGNESIUM 2.0 1.6 - 2.4 mg/dL 12/09/2022 6:34 AM CDT [facility] [place] [facility] Blood Collection / Unknown 12/09/2022 4:20 AM CDT 12/09/2022 6:15 AM CDT Esther Sarmiento MD CHEMISTRY ORDERABLES Final Resul t Performing Organization Address [facility] Co de Phone Number [facility] [place] [facility] CLIA # [id number] [address] [address] * (ABNORMAL) COMPREHENSIVE METABOLIC PANEL (12/09/2022 4:20 AM CDT) SODIUM 136 136 - 145 mmol/L 12/09/2022 6:34 AM CDT [facility] [place] [facility] POTASSIUM 4.2 3.5 - 5.1 mmol/L 12/09/2022 6:34 AM CDT [facility] [place] [facility] CHLORIDE 103 98 - 107 mmol/L 12/09/2022 6:34 AM CD[address] [facility] CO2 27 22 - 29 mmol/L 12/09/2022 6:34 AM CDT [facility] [place] [facility] CALCIUM 9.8 8.8 - 10.2 mg/dL 12/09/2022 6:34 AM CDT [facility] [place] [facility] BUN 34(H) 8 - 23 mg/dL 12/09/2022 6:34 AM CDT [facility] CREATININE 0.89 0.67 - 1.17 mg/dL 12/09/2022 6:34 AM T [facility] GLUCOSE 136(H) 74 - 99 mg/dL 12/09/2022 6:34 AM T [facility] TOTAL PROTEIN 7.2 6.4 - 8.3 g/dL 12/09/2022 6:34 AM [facility] ALBUMIN 3.4(L) 3.5 - 5.2 g/dL 12/09/2022 6:34 AM T [facility] BILIRUBIN TOTAL 0.2 0.2 - 1.0 mg/dL 12/09/2022 6:34 AM [facility] ALKALINE PHOSPHATASE 116 40 - 129 U/L 12/09/2022 6:34 AM [facility] AST 16 10 - 50 U/L 12/09/2022 6:34 AM [facility] ALT 17 <=50 U/L 12/09/2022 6:34 AM [facility] GFR >60 >=60 mL/min/1.7 3 sq meter 12/09/2022 6:34 AM [facility] Comment:eGFR calculated with 2020 CKD-EPI equation. Vegetarian diet, extremely high or low muscle mass, and may affect results. Cystatin C with Glomerular Filtration Rate is a suitable alternative for these patients. ANION GAP 6(L) 9 - 20 mmol/L 12/09/2022 6:34 AM [facility] Blood Collection / Unknown 12/09/2022 4:20 AM CDT 12/09/2022 6:15 AM CDT us Esther Sarmiento MD CHEMISTRY ORDERABLES Final Resul t [facility] CLIA # [id number] [address] [address] documented in this encounter Visit Diagnoses Not on filedocumented in this encounter Additional Health Concerns Infection Onset Date Last Indicated Resolved Time C Diff 11/17/2022 11/17/2022 01/16/2023 1:16 AM CDT documented as of this encounter Care Teams Software Engineering Manager Relationship Specialty Start Date End Date Shant Ballesteros Jr., MD [address] [place] [address] PCP - General Family Practice 01/19/14 documented as of this encounter
--- OUTSIDE RECORDS SUMMARY | 2025-05-05 11:27 | XMS_ITS | Encounter Summary ---
Author Organization [employer] Address 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 Gender Identity Not on file Sexual Orientation Not on file documented as of this encounter Plan of Treatment Not on file documented as of this encounter Procedures Procedure Name Priority Date/Time Associated Diagnosis Comments PHOSPHORUS Routine 11/28/2022 7:48 AM SHEARER HELPER MAGNESIUM LEVEL Routine 11/28/2022 7:48 AM SHEARER HELPER COMPREHENSIVE METABOLIC PANEL Routine 11/28/2022 7:48 AM SHEARER HELPER documented in this encounter Results * MAGNESIUM LEVEL (11/28/2022 7:48 AM SHEARER HELPER) MAGNESIUM 2.0 1.6 - 2.4 mg/dL 11/28/2022 8:53 AM SHEARER HELPER [facility] Blood Collection / Unknown 11/28/2022 7:48 AM SHEARER HELPER 11/28/2022 8:34 AM SHEARER HELPER Low Amaya DO CHEMISTRY ORDERABLES Final R esult Performing Organization Address [facility]/ZIP Co de Phone Number [facility] CLIA # [id number] [address] [address] * PHOSPHORUS (11/28/2022 7:48 AM SHEARER HELPER) PHOSPHORUS 3.0 2.5 - 4.5 mg/dL 11/28/2022 8:53 AM [facility] Blood Collection / Unknown 11/28/2022 7:48 AM SHEARER HELPER 11/28/2022 8:34 AM SHEARER HELPER Low Amaya DO CHEMISTRY ORDERABLES Final R esult Performing Organization Address [facility]/ZIP Co de Phone Number [facility] CLIA # [id number] [address] [address] * (ABNORMAL) COMPREHENSIVE METABOLIC PANEL (11/28/2022 7:48 AM SHEARER HELPER) SODIUM 143 136 - 145 mmol/L 11/28/2022 8:53 AM [facility] POTASSIUM 4.0 3.5 - 5.1 mmol/L 11/28/2022 8:53 AM [facility] CHLORIDE 103 98 - 107 mmol/L 11/28/2022 8:53 AM [facility] CO2 33(H) 22 - 29 mmol/L 11/28/2022 8:53 AM [facility] CALCIUM 9.4 8.8 - 10.2 mg/dL 11/28/2022 8:53 AM [facility] BUN 27(H) 8 - 23 mg/dL 11/28/2022 8:53 AM [facility] CREATININE 0.96 0.67 - 1.17 mg/dL 11/28/2022 8:53 AM [facility] GLUCOSE 112(H) 74 - 99 mg/dL 11/28/2022 8:53 AM [facility] TOTAL PROTEIN 7.0 6.4 - 8.3 g/dL 11/28/2022 8:53 AM [facility] ALBUMIN 3.1(L) 3.5 - 5.2 g/dL 11/28/2022 8:53 AM [facility] BILIRUBIN TOTAL 0.3 0.2 - 1.0 mg/dL 11/28/2022 8:53 AM [facility] ALKALINE PHOSPHATASE 97 40 - 129 U/L 11/28/2022 8:53 AM [facility] AST 14 10 - 50 U/L 11/28/2022 8:53 AM [facility] ALT 11 <=50 U/L 11/28/2022 8:53 AM [facility] GFR >60 >=60 mL/min/1.7 3 sq meter 11/28/2022 8:53 AM [facility] Comment:eGFR calculated with 2020 CKD-EPI equation. Vegetarian diet, extremely high or low muscle mass, and may affect results. Cystatin C with Glomerular Filtration Rate is a suitable alternative for these patients. ANION GAP 7(L) 9 - 20 mmol/L 11/28/2022 8:53 AM [facility] Blood Collection / Unknown 11/28/2022 7:48 AM SHEARER HELPER 11/28/2022 8:34 AM SHEARER HELPER us Low Amaya DO CHEMISTRY ORDERABLES Final R esult [facility] CLIA # [id number] [facility] [address] [address] documented in this encounter Visit Diagnoses Not on filedocumented in this encounter Additional Health Concerns Infection Onset Date Last Indicated Resolved Time C Diff 11/17/2022 11/17/2022 01/16/2023 1:16 AM CDT documented as of this encounter Care Teams Manager Global Relationship Specialty Start Date End Date Shant Ballesteros Jr., MD [address] [place] [address] PCP - General Family Practice 01/19/14 documented as of this encounter
--- OUTSIDE RECORDS SUMMARY | 2025-05-05 11:27 | XMS_ITS | Encounter Summary ---
Author Organization [employer] Address 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 Gender Identity Not on file Sexual Orientation Not on file documented as of this encounter Plan of Treatment Not on file documented as of this encounter Procedures Procedure Name Priority Date/Time Associated Diagnosis Comments PHOSPHORUS Routine 11/30/2022 4:55 AM MONITORING SPECIALIST MAGNESIUM LEVEL Routine 11/30/2022 4:55 AM MONITORING SPECIALIST BASIC METABOLIC PANEL Routine 11/30/2022 4:55 AM MONITORING SPECIALIST documented in this encounter Results * MAGNESIUM LEVEL (11/30/2022 4:55 AM MONITORING SPECIALIST) MAGNESIUM 2.0 1.6 - 2.4 mg/dL 11/30/2022 8:00 AM MONITORING SPECIALIST [facility] Blood Collection / Unknown 11/30/2022 4:55 AM MONITORING SPECIALIST 11/30/2022 6:21 AM MONITORING SPECIALIST Low Amaya DO CHEMISTRY ORDERABLES Final R esult Performing Organization Address [facility]/ZIP Co de Phone Number [facility] CLIA # [id number] [address] [address] * PHOSPHORUS (11/30/2022 4:55 AM MONITORING SPECIALIST) PHOSPHORUS 3.6 2.5 - 4.5 mg/dL 11/30/2022 6:35 AM [facility] Blood Collection / Unknown 11/30/2022 4:55 AM MONITORING SPECIALIST 11/30/2022 6:21 AM MONITORING SPECIALIST Low Amaya DO CHEMISTRY ORDERABLES Final R esult Performing Organization Address [facility]/ZIP Co de Phone Number [facility] CLIA # [id number] [address] [address] * (ABNORMAL) BASIC METABOLIC PANEL (11/30/2022 4:55 AM MONITORING SPECIALIST) SODIUM 140 136 - 145 mmol/L 11/30/2022 6:35 AM [facility] POTASSIUM 4.1 3.5 - 5.1 mmol/L 11/30/2022 6:35 AM [facility] CHLORIDE 101 98 - 107 mmol/L 11/30/2022 6:35 AM [facility] CO2 34(H) 22 - 29 mmol/L 11/30/2022 6:35 AM [facility] CALCIUM 9.8 8.8 - 10.2 mg/dL 11/30/2022 6:35 AM [facility] BUN 31(H) 8 - 23 mg/dL 11/30/2022 6:35 AM [facility] CREATININE 0.99 0.67 - 1.17 mg/dL 11/30/2022 6:35 AM [facility] GLUCOSE 129(H) 74 - 99 mg/dL 11/30/2022 6:35 AM [facility] GFR >60 >=60 mL/min/1.7 3 sq meter 11/30/2022 6:35 AM [facility] Comment:eGFR calculated with 2020 CKD-EPI equation. Vegetarian diet, extremely high or low muscle mass, and may affect results. Cystatin C with Glomerular Filtration Rate is a suitable alternative for these patients. ANION GAP 5(L) 9 - 20 mmol/L 11/30/2022 6:35 AM [facility] Blood Collection / Unknown 11/30/2022 4:55 AM MONITORING SPECIALIST 11/30/2022 6:21 AM MONITORING SPECIALIST Low Amaya DO CHEMISTRY ORDERABLES Final R esult [facility] CLIA # [id number] [address] [place] [address] documented in this encounter Visit Diagnoses Not on filedocumented in this encounter Additional Health Concerns Infection Onset Date Last Indicated Resolved Time C Diff 11/17/2022 11/17/2022 01/16/2023 1:16 AM CDT documented as of this encounter Care Teams Iso Coordinator Relationship Specialty Start Date End Date Shant Ballesteros Jr., MD [address] [place] [address] PCP - General Family Practice 01/19/14 documented as of this encounter
--- OUTSIDE RECORDS SUMMARY | 2025-05-05 11:27 | XMS_ITS | Encounter Summary ---
Author Organization [employer] Address 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 Gender Identity Not on file Sexual Orientation [...] CBC WITH DIFFERENTIAL (12/13/2022 4:30 AM CDT) [facility] WBC 6.0 4.8 - 10.8 K/uL 12/13/2022 5:36 AM CDT [facility] RBC 3.36(L) 4.60 - 6.20 M/uL 12/13/2022 5:36 AM [facility] HEMOGLOBIN 10.3(L) 14.0 - 18.0 g/dL 12/13/2022 5:36 AM [facility] HEMATOCRIT 33.7(L) 41.0 - 53.0 % 12/13/2022 5:36 AM [facility] MCV 100.3 84.0 - 103.0 fL 12/13/2022 5:36 AM [facility] MCH 30.7 27.0 - 34.0 pg 12/13/2022 5:36 AM [facility] MCHC 30.6 30.0 - 35.0 g/dL 12/13/2022 5:36 AM [facility] RDW 15.9(H) 11.0 - 14.5 % 12/13/2022 5:36 AM [facility] RDW-STDEV 58.9(H) 37.0 - 54.0 fL 12/13/2022 5:36 AM [facility] PLATELETS 262 140 - 440 K/uL 12/13/2022 5:36 AM [facility] MPV 10.9 8.9 - 12.8 fL 12/13/2022 5:36 AM [facility] NEUTROPHILS 54 42 - 75 % 12/13/2022 5:36 AM [facility] LYMPHOCYTES 23(L) 24 - 44 % 12/13/2022 5:36 AM [facility] MONOCYTES 14(H) 2 - 10 % 12/13/2022 5:36 AM [facility] EOSINOPHILS 8(H) 0 - 7 % 12/13/2022 5:36 AM [facility] BASOPHILS 1 0 - 1 % 12/13/2022 5:36 AM [facility] IMMATURE GRANULOCYTES 1 0 - 2 % 12/13/2022 5:36 AM [facility] NEUTROPHIL ABSOLUTE 3.23 2.00 - 8.00 K/uL 12/13/2022 5:36 AM [facility] LYMPHOCYTE ABSOLUTE 1.39 1.20 - 4.00 K/uL 12/13/2022 5:36 AM CDT [facility] MONOCYTE ABSOLUTE 0.81(H) 0.10 - 0.60 K/uL 12/13/2022 5:36 AM CDT [facility] EOSINOPHIL ABSOLUTE 0.50 0.00 - 0.70 K/uL 12/13/2022 5:36 AM CDT [facility] BASOPHILS ABSOLUTE 0.04 0.00 - 0.20 K/uL 12/13/2022 5:36 AM CDT [facility] IMMATURE GRANULOCYTES ABSOLUTE 0.03 0.00 - 0.10 K/uL 12/13/2022 5:36 AM CDT [facility] Blood Collection / Unknown 12/13/2022 4:30 AM CDT 12/13/2022 5:28 AM CDT us Esther Sarmiento MD HEMATOLOGY ORDERABLES Final Resu lt [facility] CLIA # [id number] [address] [place] [address] * (ABNORMAL) TESTOSTERONE FREE AND TOTAL (12/13/2022 4:30 AM CDT) [facility] TESTOSTERONE 28(L) 250 - 1100 ng/dL 12/16/2022 11:31 AM CDT [facility] Comment: Men with clinically significant hypogonadal symptoms and testosterone values repeatedly in the range of the 200-300 ng/dL or less, may benefit from testosterone treatment after adequate risk and benefits counseling. For additional information, please refer to https://education.CastTV/faq/GBN656 (This link is being provided for informational/educational purposes only.) (Note) This test was developed and its analytical performance characteristics have been determined by [facility]. It has not been cleared or approved by the FDA. This assay has been validated pursuant to the CLIA regulations and is used for clinical purposes. TESTOSTERONE FREE 4.3(L) 35.0 - 155.0 pg/mL 12/16/2022 11:31 AM CDT [facility] Comment: (Note) This test was developed and its analytical performance characteristics have been determined by [facility]. It has not been cleared or approved by the FDA. This assay has been validated pursuant to the CLIA regulations and is used for clinical purposes. [facility] [address] [place] [address],[address] [place] [id number] Manuel Tirado MD Blood Collection / Unknown 12/13/2022 4:30 AM CDT 12/13/2022 7:43 AM CDT Narrative [facility] - 12/16/2022 11:31 AM CDT Performing Organization Information: Site ID: [id number] Name: [facility] Address: [address] [place] [address], [address] [place] [id number] Director: Manuel Tirado MD Esther Sarmiento MD CHEMISTRY ORDERABLES Final Resul t [facility] documented in this encounter Visit Diagnoses Not on filedocumented in this encounter Additional Health Concerns Infection Onset Date Last Indicated Resolved Time C Diff 11/17/2022 11/17/2022 01/16/2023 1:16 AM CDT documented as of this encounter Care Teams Technician Inventory Specialist Relationship Specialty Start Date End Date Shant Ballesteros Jr., MD [address] [place] [address] PCP - General Family Practice 01/19/14 documented as of this encounter
--- OUTSIDE RECORDS SUMMARY | 2025-05-05 11:27 | XMS_ITS | Encounter Summary ---
Author Organization [employer] Address [address] [place] [address] Care Team Providers Care Curator Zoological Museum Name Role Phone Favian Maldonado MD, Shant Humphreys Primary Care Provider Encounter Details Date Type Department Care Team (Late st Contact Info) Description 12/10/2022 Lab Re[address] 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 Gender Identity Not on file Sexual Orientation [...] CALCIUM IONIZED (12/10/2022 2:00 AM CDT) Pathologist [facility] CALCIUM IONIZED 5.4 4.7 - 5.5 mg/dL 12/11/2022 2:42 PM CDT [facility] Blood Collection / Unknown 12/10/2022 2:00 AM CDT 12/10/2022 7:02 AM CDT Narrative [facility] - 12/11/2022 2:42 PM CDT Performing Organization Information: Site ID: [place] Name: [facility] Address: [address] [place] [address] Director: Andrew Alvarado MD Low Amaya CHEMISTRY ORDERABLES Final R esult Performing Organization Address City/[facility]/ZIP Co de Phone Number [facility] * MAGNESIUM LEVEL (12/10/2022 2:00 AM CDT) [facility] MAGNESIUM 2.0 1.6 - 2.4 mg/dL 12/10/2022 7:38 AM CDT [facility] Blood Collection / Unknown 12/10/2022 2:00 AM CDT 12/10/2022 7:02 AM CDT Low Amaya CHEMISTRY ORDERABLES Final R esult Performing Organization Address City/[facility]/ZIP Co de Phone Number [facility] CLIA # [id number] [address] [address] [place] [address] * (ABNORMAL) TRIGLYCERIDE (12/10/2022 2:00 AM CDT) [facility] TRIGLYCERIDE 202(H) <150 mg/dL 12/10/2022 7:38 AM CDT [facility] Blood Collection / Unknown 12/10/2022 2:00 AM CDT 12/10/2022 7:02 AM CDT Narrative [facility] - 12/10/2022 7:38 AM CDT TRIGLYCERIDES mg/dL Normal < 150 Borderline High 150 - 199 High 200 - 499 Very High >= 500 Based on AHA/NCEP Guidelines. Low Amaya DO CHEMISTRY ORDERABLES Final R esult Performing Organization Address City/[facility]/ZIP Co de Phone Number [facility] CLIA # [id number] [address] [address] * PHOSPHORUS (12/10/2022 2:00 AM CDT) [facility] PHOSPHORUS 3.5 2.5 - 4.5 mg/dL 12/10/2022 7:38 AM CDT [facility] Blood Collection / Unknown 12/10/2022 2:00 AM CDT 12/10/2022 7:02 AM CDT Low Amaya DO CHEMISTRY ORDERABLES Final R [facility] Performing Organization Address [facility] Co de Phone Number [facility] CLIA # [id number] [address] [address] * (ABNORMAL) CBC WITH DIFFERENTIAL (12/10/2022 2:00 AM CDT) [facility] WBC 7.0 4.8 - 10.8 K/uL 12/10/2022 7:10 AM CDT [facility] RBC 3.23(L) 4.60 - 6.20 M/uL 12/10/2022 7:10 AM CDT [facility] HEMOGLOBIN 9.7(L) 14.0 - 18.0 g/dL 12/10/2022 7:10 AM CDT [facility] HEMATOCRIT 31.3(L) 41.0 - 53.0 % 12/10/2022 7:[address] [facility] MCV 96.9 84.0 - 103.0 fL 12/10/2022 7:[address] [facility] MCH 30.0 27.0 - 34.0 pg 12/10/2022 7:[address] [facility] MCHC 31.0 30.0 - 35.0 g/dL 12/10/2022 7:[address] [facility] RDW 16.3(H) 11.0 - 14.5 % 12/10/2022 7:[address] [facility] RDW-STDEV 58.5(H) 37.0 - 54.0 fL 12/10/2022 7:[address] [facility] PLATELETS 236 140 - 440 K/uL 12/10/2022 7:[address] [facility] MPV 11.2 8.9 - 12.8 fL 12/10/2022 7:[address] [facility] NEUTROPHILS 56 42 - 75 % 12/10/2022 7:[address] [facility] LYMPHOCYTES 20(L) 24 - 44 % 12/10/2022 7:[address] [facility] MONOCYTES 14(H) 2 - 10 % 12/10/2022 7:[address] [facility] EOSINOPHILS 7 0 - 7 % 12/10/2022 7:[address] [facility] BASOPHILS 1 0 - 1 % 12/10/2022 7:[address] [facility] IMMATURE GRANULOCYTES 1 0 - 2 % 12/10/2022 7:[address] [facility] NEUTROPHIL ABSOLUTE 3.94 2.00 - 8.00 K/uL 12/10/2022 7:[address] [facility] LYMPHOCYTE ABSOLUTE 1.42 1.20 - 4.00 K/uL 12/10/2022 7:[address] [facility] MONOCYTE ABSOLUTE 1.01(H) 0.10 - 0.60 K/uL 12/10/2022 7:[address] [facility] EOSINOPHIL ABSOLUTE 0.52 0.00 - 0.70 K/uL 12/10/2022 7:10 AM CDT [facility] BASOPHILS ABSOLUTE 0.06 0.00 - 0.20 K/uL 12/10/2022 7:10 AM CDT [facility] IMMATURE GRANULOCYTES ABSOLUTE 0.04 0.00 - 0.10 K/uL 12/10/2022 7:10 AM T [facility] Blood Collection / Unknown 12/10/2022 2:00 AM CDT 12/10/2022 7:02 AM CDT us Low Amaya DO HEMATOLOGY ORDERABLES Final Result [facility] CLIA # [id number] [address] [place] [address] * (ABNORMAL) COMPREHENSIVE METABOLIC PANEL (12/10/2022 2:00 AM CDT) SODIUM 136 136 - 145 mmol/L 12/10/2022 7:[address] [facility] POTASSIUM 4.4 3.5 - 5.1 mmol/L 12/10/2022 7:[address] [facility] CHLORIDE 102 98 - 107 mmol/L 12/10/2022 7:[address] [facility] CO2 26 22 - 29 mmol/L 12/10/2022 7:[address] [facility] CALCIUM 10.0 8.8 - 10.2 mg/dL 12/10/2022 7:[address] [facility] BUN 35(H) 8 - 23 mg/dL 12/10/2022 7:[address] [facility] CREATININE 0.94 0.67 - 1.17 mg/dL 12/10/2022 7:38 AM T [facility] GLUCOSE 117(H) 74 - 99 mg/dL 12/10/2022 7:[address] [facility] TOTAL PROTEIN 7.0 6.4 - 8.3 g/dL 12/10/2022 7:38 AM T [facility] ALBUMIN 3.3(L) 3.5 - 5.2 g/dL 12/10/2022 7:38 AM T [facility] BILIRUBIN TOTAL 0.2 0.2 - 1.0 mg/dL 12/10/2022 7:38 AM T [facility] ALKALINE PHOSPHATASE 113 40 - 129 U/L 12/10/2022 7:38 AM T [facility] AST 17 10 - 50 U/L 12/10/2022 7:38 AM T [facility] ALT 16 <=50 U/L 12/10/2022 7:38 AM T [facility] GFR >60 >=60 mL/min/1.7 3 sq meter 12/10/2022 7:[address] [facility] Comment:eGFR calculated with 2020 CKD-EPI equation. Vegetarian diet, extremely high or low muscle mass, and may affect results. Cystatin C with Glomerular Filtration Rate is a suitable alternative for these patients. ANION GAP 8(L) 9 - 20 mmol/L 12/10/2022 7:38 AM T [facility] Blood Collection / Unknown 12/10/2022 2:00 AM CDT 12/10/2022 7:02 AM CDT Low Amaya DO CHEMISTRY ORDERABLES Final R esult [facility] CLIA # [id number] [address] [address] documented in this encounter Visit Diagnoses Not on filedocumented in this encounter Additional Health Concerns Infection Onset Date Last Indicated Resolved Time C Diff 11/17/2022 11/17/2022 01/16/2023 1:16 AM CDT documented as of this encounter Care Teams Curator Zoological Museum Relationship Specialty Start Date End Date Shant Ballesteros Jr., MD [address] [place] [address] PCP - General Family Practice 01/19/14 documented as of this encounter
--- OUTSIDE RECORDS SUMMARY | 2025-05-05 11:27 | XMS_ITS | Encounter Summary ---
Author Organization [employer] [facility] Address 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 Gender Identity Not on file Sexual [...] 136 - 145 mmol/L 12/20/2022 6:20 AM [facility] POTASSIUM 5.4(H) 3.5 - 5.1 mmol/L 12/20/2022 6:20 AM [facility] CHLORIDE 97(L) 98 - 107 mmol/L 12/20/2022 6:20 AM [facility] CO2 26 22 - 29 mmol/L 12/20/2022 6:20 AM [facility] CALCIUM 10.2 8.8 - 10.2 mg/dL 12/20/2022 6:20 AM [facility] BUN 42(H) 8 - 23 mg/dL 12/20/2022 6:20 AM [facility] CREATININE 1.10 0.67 - 1.17 mg/dL 12/20/2022 6:20 AM [facility] GLUCOSE 120(H) 74 - 99 mg/dL 12/20/2022 6:20 AM [facility] TOTAL PROTEIN 7.4 6.4 - 8.3 g/dL 12/20/2022 6:20 AM [facility] ALBUMIN 3.6 3.5 - 5.2 g/dL 12/20/2022 6:20 AM [facility] BILIRUBIN TOTAL 0.2 0.2 - 1.0 mg/dL 12/20/2022 6:20 AM [facility] ALKALINE PHOSPHATASE 103 40 - 129 U/L 12/20/2022 6:20 AM [facility] AST 27 10 - 50 U/L 12/20/2022 6:20 AM [facility] ALT 34 <=50 U/L 12/20/2022 6:20 AM [facility] GFR >60 >=60 mL/min/1.7 3 sq meter 12/20/2022 6:20 AM [facility] Comment:eGFR calculated with 2020 CKD-EPI equation. Vegetarian diet, extremely high or low muscle mass, and may affect results. Cystatin C with Glomerular Filtration Rate is a suitable alternative for these patients. ANION GAP 11 9 - 20 mmol/L 12/20/2022 6:20 AM T [facility] Blood Collection / Unknown 12/20/2022 1:20 AM CDT 12/20/2022 6:05 AM CDT us Deborah Aguilar MD CHEMISTRY ORDERABLES Final Resu lt [facility] CLIA # [id number] [address] [address] [place] [address] * (ABNORMAL) CBC WITH DIFFERENTIAL (12/20/2022 1:20 AM CDT) WBC 7.9 4.8 - 10.8 K/uL 12/20/2022 6:09 AM T [facility] RBC 3.74(L) 4.60 - 6.20 M/uL 12/20/2022 6:09 AM T [facility] HEMOGLOBIN 11.4(L) 14.0 - 18.0 g/dL 12/20/2022 6:09 AM T [facility] HEMATOCRIT 35.9(L) 41.0 - 53.0 % 12/20/2022 6:09 AM [facility] MCV 96.0 84.0 - 103.0 fL 12/20/2022 6:09 AM T [facility] MCH 30.5 27.0 - 34.0 pg 12/20/2022 6:09 AM T [facility] MCHC 31.8 30.0 - 35.0 g/dL 12/20/2022 6:09 AM T [facility] RDW 15.5(H) 11.0 - 14.5 % 12/20/2022 6:09 AM [facility] RDW-STDEV 55.0(H) 37.0 - 54.0 fL 12/20/2022 6:09 AM [facility] PLATELETS 279 140 - 440 K/uL 12/20/2022 6:09 AM T [facility] MPV 10.5 8.9 - 12.8 fL 12/20/2022 6:09 AM T [facility] NEUTROPHILS 54 42 - 75 % 12/20/2022 6:09 AM T [facility] LYMPHOCYTES 22(L) 24 - 44 % 12/20/2022 6:09 AM T [facility] MONOCYTES 13(H) 2 - 10 % 12/20/2022 6:09 AM T [facility] EOSINOPHILS 10(H) 0 - 7 % 12/20/2022 6:09 AM T [facility] BASOPHILS 1 0 - 1 % 12/20/2022 6:09 AM T [facility] IMMATURE GRANULOCYTES 1 0 - 2 % 12/20/2022 6:09 AM [facility] NEUTROPHIL ABSOLUTE 4.27 2.00 - 8.00 K/uL 12/20/2022 6:09 AM T [facility] LYMPHOCYTE ABSOLUTE 1.72 1.20 - 4.00 K/uL 12/20/2022 6:09 AM T [facility] MONOCYTE ABSOLUTE 0.99(H) 0.10 - 0.60 K/uL 12/20/2022 6:09 AM [facility] EOSINOPHIL ABSOLUTE 0.76(H) 0.00 - 0.70 K/uL 12/20/2022 6:09 AM [facility] BASOPHILS ABSOLUTE 0.06 0.00 - 0.20 K/uL 12/20/2022 6:09 AM [facility] IMMATURE GRANULOCYTES ABSOLUTE 0.05 0.00 - 0.10 K/uL 12/20/2022 6:09 AM [facility] Blood Collection / Unknown 12/20/2022 1:20 AM CDT 12/20/2022 6:05 AM CDT us Deborah Aguilar MD HEMATOLOGY ORDERABLES Final Res ult [facility] # [id number] [address] [address] [place] [address] documented in this encounter Visit Diagnoses Not on filedocumented in this encounter Additional Health Concerns Infection Onset Date Last Indicated Resolved Time C Diff 11/17/2022 11/17/2022 01/16/2023 1:16 AM CDT documented as of this encounter Care Teams Wire Spring Relay Adjuster Relationship Specialty Start Date End Date Shant Ballesteros Jr., MD [address] [place] [id number] PCP - General Family Practice 01/19/14 documented as of this encounter
--- OUTSIDE RECORDS SUMMARY | 2025-05-05 11:27 | XMS_ITS | Encounter Summary ---
Author Organization [facility] Address [address] [place] [address] Care Team Providers Care Chainstitch Pants Outseamer Name Role Phone Favian Maldonado MD, Shant Humphreys Primary Care Provider Encounter Details Date Type Department Care Team (Late st Contact Info) Description 12/06/2022 Lab Requisition [facility] Laboratory Services [address] [place] [address] Esther Sarmineto MD [address] [place] [address] Social History Tobacco Use Types Packs/Day Years Used Date Smoking Tobacco: Never Assessed Sex and Gender Information Value Date Recorded Sex Assigned at Not on file 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 Gender Identity Not on file Sexual Orientation Not on file documented as of this encounter Plan of Treatment Not on file documented as of this encounter Procedures Procedure Name Priority Date/Time Associated Diagnosis Comments EXTRA TUBE (GREEN) Routine 12/06/2022 3:00 AM BEAUTY SCHOOL INSTRUCTOR documented in this encounter Results * EXTRA TUBE (GREEN) (12/06/2022 3:00 AM BEAUTY SCHOOL INSTRUCTOR) Blood Collection / Unknown 12/06/2022 3:00 AM BEAUTY SCHOOL INSTRUCTOR 12/06/2022 7:33 AM BEAUTY SCHOOL INSTRUCTOR us Esther Sarmiento MD CHEMISTRY ORDERABLES Final Resul t [facility] CLIA # [id number] [address] [facility] [place] [address] documented in this encounter Visit Diagnoses Not on filedocumented in this encounter Additional Health Concerns Infection Onset Date Last Indicated Resolved Time C Diff 11/17/2022 11/17/2022 01/16/2023 1:16 AM CDT documented as of this encounter Care Teams Chainstitch Pants Outseamer Relationship Specialty Start Date End Date Shant Ballesteros Jr., MD [address] [place] [address] PCP - General Family Practice 01/19/14 documented as of this encounter
--- OUTSIDE RECORDS SUMMARY | 2025-05-05 11:27 | XMS_ITS | Encounter Summary ---
Author Organization [facility] Address [address] [place] [address] Care Team Providers Care Manager Product Name Role Phone Favian Maldonado MD, Shant Humphreys Primary Care Provider Encounter Details Date Type Department Care Team (Late st Contact Info) Description 11/24/2022 Lab Requisition [facility] Laboratory Services [address] [place] [address] Andre Mary, MADHU [address] [facility] [address] [place] [address] Social History Tobacco Use Types Packs/Day Years Used Date Smoking Tobacco: Never Assessed Sex and Gender Information Value Date Recorded Sex Assigned at Not on file Legal 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 HUMAN FACTORS ERGONOMIST Gender Identity Not on file Sexual Orientation Not on file documented as of this encounter Plan of Treatment Not on file documented as of this encounter Procedures Procedure Name Priority Date/Time Associated Diagnosis Comments URINALYSIS W/REFLEX MICROSCOPIC Stat 11/24/2022 9:45 PM HUMAN FACTORS ERGONOMIST documented in this encounter Results * (ABNORMAL) URINALYSIS WITH REFLEX MICROSCOPIC (11/24/2022 9:45 PM HUMAN FACTORS ERGONOMIST) COLOR UA Yellow Pale to Dark Yellow 11/24/2022 11:07 PM HUMAN FACTORS ERGONOMIST [facility] CLARITY UA Clear Clear 11/24/2022 11:07 PM HUMAN FACTORS ERGONOMIST [facility] SPECIFIC GRAVITY UA 1.012 1.003 - 1.035 11/24/2022 11:07 PM [facility] PH UA 5.0 5.0 - 8.0 11/24/2022 11:07 PM [facility] LEUKOCYTE ESTERASE UA Negative Negative 11/24/2022 11:07 PM [facility] NITRITE UA Negative Negative 11/24/2022 11:07 PM [facility] PROTEIN UA Negative Negative 11/24/2022 11:07 PM [facility] GLUCOSE UA Negative Negative 11/24/2022 11:07 PM [facility] KETONES UA Negative Negative 11/24/2022 11:07 PM [facility] UROBILINOGEN UA <2.0 <2.0 mg/dL 11:07 PM [facility] BILIRUBIN UA Negative Negative 11/24/2022 11:07 PM [facility] BLOOD UA 1+(A) Negative 11/24/2022 11:07 PM [facility] WBC UA 0-2 0 - 2 /hpf 11/24/2022 11:07 PM [facility] RBC UA 0-2 0 - 2 /hpf 11/24/2022 11:07 PM [facility] BACTERIA UA Negative Negative /hpf 11/24/2022 11:07 PM [facility] EPITHELIAL CELLS, URINE 0-5 0 - 5 /hpf 11/24/2022 11:07 PM [facility] Urine URINE SPECIMEN OBTAINED BY CLEAN CATCH PROCEDURE / Unknown Collection / Unknown 11/24/2022 9:45 PM HUMAN FACTORS ERGONOMIST 11/24/2022 10:55 PM HUMAN FACTORS ERGONOMIST us Andre Mary GAS PLANT WORKER URINE ORDERABLES Final R esult [facility] CLIA # [id number] [address] [id number] documented in this encounter Visit Diagnoses Not on filedocumented in this encounter Additional Health Concerns Infection Onset Date Last Indicated Resolved Time C Diff 11/17/2022 11/17/2022 01/16/2023 1:16 AM CDT documented as of this encounter Care Teams Manager Product Relationship Specialty Start Date End Date Shant Ballesteros Jr., MD [address] [place] [address] PCP - General Family Practice 01/19/14 documented as of this encounter
--- OUTSIDE RECORDS SUMMARY | 2025-05-05 11:27 | XMS_ITS | Encounter Summary ---
Author Organization [employer] Address [address] [place] [address] Care Team Providers Care Charging Board Operator Name Role Phone Favian Maldonado MD, Shatn Humphreys Primary Care Provider Encounter Details Date Type Department Care Team (Late st Contact Info) Description 12/12/2022 Lab Requisition 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6 - 2.4 mg/dL 12/12/2022 5:57 AM CDT [facility] Blood Collection / Unknown 12/12/2022 3:15 AM CDT 12/12/2022 5:23 AM CDT Low Amaya CHEMISTRY ORDERABLES Final R esult Performing Organization Address [facility] de Phone Number [facility] CLIA # [id number] [address] [place] [address] * (ABNORMAL) BASIC METABOLIC PANEL (12/12/2022 3:15 AM CDT) SODIUM 135(L) 136 - 145 mmol/L 12/12/2022 5:57 AM CDT [facility] POTASSIUM 4.7 3.5 - 5.1 mmol/L 12/12/2022 5:57 AM CDT [facility] CHLORIDE 101 98 - 107 mmol/L 12/12/2022 5:57 AM CDT [facility] CO2 24 22 - 29 mmol/L 12/12/2022 5:57 AM CDT [facility] CALCIUM 10.0 8.8 - 10.2 mg/dL 12/12/2022 5:57 AM CDT [facility] BUN 42(H) 8 - 23 mg/dL 12/12/2022 5:57 AM CDT [facility] CREATININE 1.00 0.67 - 1.17 mg/dL 12/12/2022 5:57 AM CDT [facility] GLUCOSE 133(H) 74 - 99 mg/dL 12/12/2022 5:57 AM CDT [facility] GFR >60 >=60 mL/min/1.7 3 sq meter 12/12/2022 5:57 AM CDT [facility] Comment:eGFR calculated with 2020 CKD-EPI equation. Vegetarian diet, extremely high or low muscle mass, and may affect results. Cystatin C with Glomerular Filtration Rate is a suitable alternative for these patients. ANION GAP 10 9 - 20 mmol/L 12/12/2022 5:57 AM CDT [facility] Blood Collection / Unknown 12/12/2022 3:15 AM CDT 12/12/2022 5:23 AM CDT Low Amaya DO CHEMISTRY ORDERABLES Final R esult [facility] CLIA # [id number] [facility] [address] documented in this encounter Visit Diagnoses Not on filedocumented in this encounter Additional Health Concerns Infection Onset Date Last Indicated Resolved Time C Diff 11/17/2022 11/17/2022 01/16/2023 1:16 AM CDT documented as of this encounter Care Teams Charging Board Operator Relationship Specialty Start Date End Date Shant Ballesteros Jr., MD [address] [place] [phone] PCP - General Family Practice 01/19/14 documented as of this encounter
--- OUTSIDE RECORDS SUMMARY | 2025-05-05 11:28 | XMS_ITS | Encounter Summary ---
Author Organization [employer] Address [address] [place] [address] Care Team Providers Care Insert Operator Name Role Phone Favian Maldonado MD, Shant Humphreys Primary Care Provider Encounter Details Date Type Department Care Team (Late st Contact Info) Description 11/23/2022 Lab Requisition [facility] Laboratory Services [address] [place] [address] [place] [address] Low Amaya, DO [address] [place] [phone] Social History Tobacco Use Types Packs/Day Years Used Date Smoking Tobacco: Never Assessed Sex and Gender Information Value Date Recorded Sex Assigned at Not on file Legal 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 LABOR DELIVERY RN Gender Identity Not on file Sexual Orientation Not on file documented as of this encounter Plan of Treatment Not on file documented as of this encounter Procedures Procedure Name Priority Date/Time Associated Diagnosis Comments PHOSPHORUS Routine 11/23/2022 4:30 AM LABOR DELIVERY RN MAGNESIUM LEVEL Routine 11/23/2022 4:30 AM LABOR DELIVERY RN BASIC METABOLIC PANEL Routine 11/23/2022 4:30 AM LABOR DELIVERY RN documented in this encounter Results * PHOSPHORUS (11/23/2022 4:30 AM LABOR DELIVERY RN) PHOSPHORUS 4.1 2.5 - 4.5 mg/dL 11/23/2022 6:08 AM LABOR DELIVERY RN [facility] Blood Collection / Unknown 11/23/2022 4:30 AM LABOR DELIVERY RN 11/23/2022 5:49 AM LABOR DELIVERY RN Low Amyaa DO CHEMISTRY ORDERABLES Final R [facility] Performing Organization Address [facility]/ZIP Co de Phone Number [facility] CLIA # [id number] [address] [facility] [place] [address] * MAGNESIUM LEVEL (11/23/2022 4:30 AM LABOR DELIVERY RN) MAGNESIUM 1.9 1.6 - 2.4 mg/dL 11/23/2022 6:08 AM [facility] Blood Collection / Unknown 11/23/2022 4:30 AM LABOR DELIVERY RN 11/23/2022 5:49 AM LABOR DELIVERY RN Low Amaya DO CHEMISTRY ORDERABLES Final R esult Performing Organization Address [facility] Co de Phone Number [facility] CLIA # [id number] [address] [address] * (ABNORMAL) BASIC METABOLIC PANEL (11/23/2022 4:30 AM LABOR DELIVERY RN) SODIUM 142 136 - 145 mmol/L 11/23/2022 6:08 AM [facility] POTASSIUM 4.3 3.5 - 5.1 mmol/L 11/23/2022 6:08 AM [facility] Comment:Slightly hemolyzed. Result may be falsely elevated. CHLORIDE 104 98 - 107 mmol/L 11/23/2022 6:08 AM [facility] CO2 30(H) 22 - 29 mmol/L 11/23/2022 6:08 AM [facility] CALCIUM 9.5 8.8 - 10.2 mg/dL 11/23/2022 6:08 AM [facility] BUN 25(H) 8 - 23 mg/dL 11/23/2022 6:08 AM [facility] CREATININE 0.92 0.67 - 1.17 mg/dL 11/23/2022 6:08 AM [facility] GLUCOSE 135(H) 74 - 99 mg/dL 11/23/2022 6:08 AM [facility] GFR >60 >=60 mL/min/1.7 3 sq meter 11/23/2022 6:08 AM [facility] Comment:eGFR calculated with 2020 CKD-EPI equation. Vegetarian diet, extremely high or low muscle mass, and may affect results. Cystatin C with Glomerular Filtration Rate is a suitable alternative for these patients. ANION GAP 8(L) 9 - 20 mmol/L 11/23/2022 6:08 AM [facility] Blood Collection / Unknown 11/23/2022 4:30 AM LABOR DELIVERY RN 11/23/2022 5:49 AM LABOR DELIVERY RN Low Amaya DO CHEMISTRY ORDERABLES Final R esult [facility] CLIA # [id number] [address] [place] [address] documented in this encounter Visit Diagnoses Not on filedocumented in this encounter Additional Health Concerns Infection Onset Date Last Indicated Resolved Time C Diff 11/17/2022 11/17/2022 01/16/2023 1:16 AM CDT documented as of this encounter Care Teams Insert Operator Relationship Specialty Start Date End Date Shant Ballesteros Jr., MD [address] [place] [address] PCP - General Family Practice 01/19/14 documented as of this encounter
--- OUTSIDE RECORDS SUMMARY | 2025-05-05 11:28 | XMS_ITS | Encounter Summary ---
Author Organization [facility] Address [address] [place] [address] Care Team Providers Care Machinist Apprentice Wood Name Role Phone Favian Maldonado MD, Shant Humphreys Primary Care Provider Encounter Details Date Type Department Care Team (Late st Contact Info) Description 11/09/2022 Lab Requisition [facility] Laboratory Services [address] [place] [address] [place] [address] Soni Jeffery MD [address] [place] [address] Social History Tobacco Use Types Packs/Day Years Used Date Smoking Tobacco: Never Assessed Sex and Gender Information Value Date Recorded Sex Assigned at Not on file Legal 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 SET UP MOLD TECHNICIAN Gender Identity Not on file Sexual Orientation Not on file documented as of this encounter Plan of Treatment Not on file documented as of this encounter Procedures Procedure Name Priority Date/Time Associated Diagnosis Comments CBC WITH DIFFERENTIAL Routine 11/09/2022 6:15 PM SET UP MOLD TECHNICIAN BASIC METABOLIC PANEL Routine 11/09/2022 6:15 PM SET UP MOLD TECHNICIAN documented in this encounter Results * (ABNORMAL) CBC WITH DIFFERENTIAL (11/09/2022 6:15 PM SET UP MOLD TECHNICIAN) [facility] WBC 7.2 4.8 - 10.8 K/uL 11/09/2022 7:07 PM SET UP MOLD TECHNICIAN [facility] LABORATORY SERVICES [facility] RBC 2.78(L) 4.60 - 6.20 M/uL 11/09/2022 7:07 PM [facility] HEMOGLOBIN 8.0(L) 14.0 - 18.0 g/dL 11/09/2022 7:07 PM [facility] HEMATOCRIT 27.5(L) 41.0 - 53.0 % 11/09/2022 7:07 PM [facility] MCV 98.9 84.0 - 103.0 fL 11/09/2022 7:07 PM [facility] MCH 28.8 27.0 - 34.0 pg 11/09/2022 7:07 PM [facility] MCHC 29.1(L) 30.0 - 35.0 g/dL 11/09/2022 7:07 PM [facility] RDW 15.9(H) 11.0 - 14.5 % 11/09/2022 7:07 PM [facility] RDW-STDEV 57.7(H) 37.0 - 54.0 fL 11/09/2022 7:07 PM [facility] PLATELETS 250 140 - 440 K/uL 11/09/2022 7:07 PM [facility] MPV 10.9 8.9 - 12.8 fL 11/09/2022 7:07 PM [facility] NEUTROPHILS 65 42 - 75 % 11/09/2022 7:07 PM [facility] LYMPHOCYTES 11(L) 24 - 44 % 11/09/2022 7:07 PM [facility] MONOCYTES 17(H) 2 - 10 % 11/09/2022 7:07 PM [facility] EOSINOPHILS 6 0 - 7 % 11/09/2022 7:07 PM [facility] BASOPHILS 1 0 - 1 % 11/09/2022 7:07 PM [facility] IMMATURE GRANULOCYTES 1 0 - 2 % 11/09/2022 7:07 PM [facility] NEUTROPHIL ABSOLUTE 4.64 2.00 - 8.00 K/uL 11/09/2022 7:07 PM [facility] LYMPHOCYTE ABSOLUTE 0.79(L) 1.20 - 4.00 K/uL 11/09/2022 7:07 PM [facility] MONOCYTE ABSOLUTE 1.19(H) 0.10 - 0.60 K/uL 11/09/2022 7:07 PM [facility] EOSINOPHIL ABSOLUTE 0.42 0.00 - 0.70 K/uL 11/09/2022 7:07 PM [facility] BASOPHILS ABSOLUTE 0.04 0.00 - 0.20 K/uL 11/09/2022 7:07 PM [facility] IMMATURE GRANULOCYTES ABSOLUTE 0.08 0.00 - 0.10 K/uL 11/09/2022 7:07 PM [facility] Blood Collection / Unknown 11/09/2022 6:15 PM SET UP MOLD TECHNICIAN 11/09/2022 7:03 PM [facility] Soni Jeffery MD HEMATOLOGY ORDERABLES Final Resu lt [facility] CLIA # [id number] [facility] [address] * (ABNORMAL) BASIC METABOLIC PANEL (11/09/2022 6:15 PM SET UP MOLD TECHNICIAN) SODIUM 140 136 - 145 mmol/L 11/09/2022 7:39 PM [facility] POTASSIUM 4.8 3.5 - 5.1 mmol/L 11/09/2022 7:39 PM [facility] CHLORIDE 106 98 - 107 mmol/L 11/09/2022 7:39 PM [facility] CO2 26 22 - 29 mmol/L 11/09/2022 7:39 PM [facility] CALCIUM 8.6(L) 8.8 - 10.2 mg/dL 11/09/2022 7:39 PM [facility] BUN 22 8 - 23 mg/dL 11/09/2022 7:39 PM [facility] CREATININE 1.15 0.67 - 1.17 mg/dL 11/09/2022 7:39 PM [facility] GLUCOSE 121(H) 74 - 99 mg/dL 11/09/2022 7:39 PM SET UP MOLD TECHNICIAN [facility] GFR >60 >=60 mL/min/1.7 3 sq meter 11/09/2022 7:39 PM [facility] Comment:eGFR calculated with 2020 CKD-EPI equation. Vegetarian diet, extremely high or low muscle mass, and may affect results. Cystatin C with Glomerular Filtration Rate is a suitable alternative for these patients. ANION GAP 8(L) 9 - 20 mmol/L 11/09/2022 7:39 PM [facility] Blood Collection / Unknown 11/09/2022 6:15 PM SET UP MOLD TECHNICIAN 11/09/2022 7:03 PM SET UP MOLD TECHNICIAN Soni Jeffery MD CHEMISTRY ORDERABLES Final Resul t Performing Organization Address City/State/[facility] Co de Phone Number [facility] CLIA # [id number] [facility] [address] documented in this encounter Visit Diagnoses Not on filedocumented in this encounter Additional Health Concerns Infection Onset Date Last Indicated Resolved Time C Diff 11/17/2022 11/17/2022 01/16/2023 1:16 AM CDT documented as of this encounter Care Teams Machinist Apprentice Wood Relationship Specialty Start Date End Date Shant Ballesteros Jr., MD [address] [place] [address] PCP - General Family Practice 01/19/14 documented as of this encounter
--- OUTSIDE RECORDS SUMMARY | 2025-05-05 11:28 | XMS_ITS | Clinical Summary ---
Author Organization [facility] Address [address] [place] [address] Phone Care Team Providers Care Patient Support Specialist Name Role Phone Favian Maldonado MD, [...] (1 - 1-dose 75+ series) 2030 Insurance [employer] [id number] HMO Care Teams Patient Support Specialist Relationship Specialty Start Date End Date Shant Ballesteros Jr., MD [address] [place] [address] PCP - General Family Practice 01/19/14
--- OUTSIDE RECORDS SUMMARY | 2025-05-05 11:28 | XMS_ITS | Encounter Summary ---
Author Organization [employer] [facility] Address [address] [place] [address] Care Team Providers Care Automotive General Manager Name Role Phone Favian Maldonado MD, Shant Humphreys Primary Care Provider Encounter Details Date Type Department Care Team (Late st Contact Info) Description 11/24/2022 Lab Requisition [facility] Laboratory Services [address] [place] [address] [place] [address] Andre Mary, MADHU [address] [facility] [address] [place] [address] Social History Tobacco Use Types Packs/Day Years Used Date Smoking Tobacco: Never Assessed Sex and Gender Information Value Date Recorded Sex Assigned at Not on file Legal 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 RETAIL BRAND AMBASSADOR Gender Identity Not on file Sexual Orientation Not on file documented as of this encounter Plan of Treatment Not on file documented as of this encounter Procedures Procedure Name Priority Date/Time Associated Diagnosis Comments EXTRA TUBE (SST/GOLD) Routine 11/24/2022 7:12 PM RETAIL BRAND AMBASSADOR LACTIC ACID Stat 11/24/2022 7:12 PM RETAIL BRAND AMBASSADOR PROCALCITONIN Stat 11/24/2022 6:37 PM RETAIL BRAND AMBASSADOR CBC WITH DIFFERENTIAL Stat 11/24/2022 6:37 PM RETAIL BRAND AMBASSADOR BLOOD CULTURE Stat 11/24/2022 6:37 PM RETAIL BRAND AMBASSADOR BLOOD CULTURE Stat 11/24/2022 6:37 PM RETAIL BRAND AMBASSADOR COMPREHENSIVE METABOLIC PANEL Stat 11/24/2022 6:37 PM RETAIL BRAND AMBASSADOR documented in this encounter Results * EXTRA TUBE (SST/GOLD) (11/24/2022 7:12 PM RETAIL BRAND AMBASSADOR) Blood Collection / Unknown 11/24/2022 7:12 PM RETAIL BRAND AMBASSADOR 11/24/2022 7:42 PM RETAIL BRAND AMBASSADOR Andre Mary MANUAL ARTS THERAPIST CHEMISTRY ORDERABLES Fin al Result Performing Organization Address [facility] Co de Phone Number [facility] CLIA # [id number] [address] [place] [address] * LACTIC ACID (11/24/2022 7:12 PM RETAIL BRAND AMBASSADOR) LACTIC ACID 1.0 <=2.0 mmol/L 11/24/2022 7:47 PM RETAIL BRAND AMBASSADOR [facility] Blood Collection / Unknown 11/24/2022 7:12 PM RETAIL BRAND AMBASSADOR 11/24/2022 7:25 PM RETAIL BRAND AMBASSADOR Andre Mary MANUAL ARTS THERAPIST CHEMISTRY ORDERABLES Fin al Result Performing Organization Address [facility] Co de Phone Number [facility] CLIA # [id number] [address] [place] [address] * PROCALCITONIN (11/24/2022 6:37 PM RETAIL BRAND AMBASSADOR) PROCALCITONIN 0.08 <=0.08 ng/mL 11/24/2022 8:08 PM RETAIL BRAND AMBASSADOR [facility] Blood Collection / Unknown 11/24/2022 6:37 PM RETAIL BRAND AMBASSADOR 11/24/2022 7:25 PM RETAIL BRAND AMBASSADOR Narrative [facility] - 11/24/2022 8:08 PM RETAIL BRAND AMBASSADOR The utility of procalcitonin is limited/NOT recommended [...] ORDERABLES Fin al Result Performing Organization Address [facility]/ZIP Co de Phone Number [facility] CLIA # [id number] [address] [place], [place] [address] * BLOOD CULTURE (11/24/2022 6:37 PM RETAIL BRAND AMBASSADOR) [facility] Signature BLOOD CULTURE No growth 11/29/2022 10:32 PM RETAIL BRAND AMBASSADOR [facility] Blood Collection / Unknown 11/24/2022 6:37 PM RETAIL BRAND AMBASSADOR 11/24/2022 7:25 PM RETAIL BRAND AMBASSADOR Andre Mary NP MICROBIOLOGY - GENERAL O RDERABLES Final Result Performing Organization Address [facility] Co de Phone Number [facility] CLIA # [id number] [address] [place] [address] * BLOOD CULTURE (11/24/2022 6:37 PM RETAIL BRAND AMBASSADOR) Pathologist [facility] BLOOD CULTURE No growth 11/29/2022 10:32 PM RETAIL BRAND AMBASSADOR [facility] Blood Collection / Unknown 11/24/2022 6:37 PM RETAIL BRAND AMBASSADOR 11/24/2022 7:25 PM RETAIL BRAND AMBASSADOR Andre Mary NP MICROBIOLOGY - GENERAL O RDERABLES Final Result [facility] CLIA # [id number] [facility] [address] [address] [place] [address] * (ABNORMAL) CBC WITH DIFFERENTIAL (11/24/2022 6:37 PM RETAIL BRAND AMBASSADOR) [facility] WBC 8.1 4.8 - 10.8 K/uL 11/24/2022 7:42 PM [facility] RBC 2.66(L) 4.60 - 6.20 M/uL 11/24/2022 7:42 PM [facility] HEMOGLOBIN 7.9(L) 14.0 - 18.0 g/dL 11/24/2022 7:42 PM [facility] HEMATOCRIT 27.6(L) 41.0 - 53.0 % 11/24/2022 7:42 PM [facility] MCV 103.8(H) 84.0 - 103.0 fL 11/24/2022 7:42 PM [facility] MCH 29.7 27.0 - 34.0 pg 11/24/2022 7:42 PM [facility] MCHC 28.6(L) 30.0 - 35.0 g/dL 11/24/2022 7:42 PM [facility] RDW 18.6(H) 11.0 - 14.5 % 11/24/2022 7:42 PM [facility] RDW-STDEV 69.4(H) 37.0 - 54.0 fL 11/24/2022 7:42 PM [facility] PLATELETS 248 140 - 440 K/uL 11/24/2022 7:42 PM [facility] MPV 10.3 8.9 - 12.8 fL 11/24/2022 7:42 PM [facility] NEUTROPHILS 73 42 - 75 % 11/24/2022 7:42 PM [facility] LYMPHOCYTES 11(L) 24 - 44 % 11/24/2022 7:42 PM [facility] MONOCYTES 13(H) 2 - 10 % 11/24/2022 7:42 PM [facility] EOSINOPHILS 3 0 - 7 % 11/24/2022 7:42 PM [facility] BASOPHILS 0 0 - 1 % 11/24/2022 7:42 PM [facility] IMMATURE GRANULOCYTES 1 0 - 2 % 11/24/2022 7:42 PM [facility] NEUTROPHIL ABSOLUTE 5.86 2.00 - 8.00 K/uL 11/24/2022 7:42 PM [facility] LYMPHOCYTE ABSOLUTE 0.87(L) 1.20 - 4.00 K/uL 11/24/2022 7:42 PM [facility] MONOCYTE ABSOLUTE 1.02(H) 0.10 - 0.60 K/uL 11/24/2022 7:42 PM [facility] EOSINOPHIL ABSOLUTE 0.21 0.00 - 0.70 K/uL 11/24/2022 7:42 PM [facility] BASOPHILS ABSOLUTE 0.03 0.00 - 0.20 K/uL 11/24/2022 7:42 PM [facility] IMMATURE GRANULOCYTES ABSOLUTE 0.07 0.00 - 0.10 K/uL 11/24/2022 7:42 PM [facility] Blood Collection / Unknown 11/24/2022 6:37 PM RETAIL BRAND AMBASSADOR 11/24/2022 7:25 PM RETAIL BRAND AMBASSADOR Andre Mary NP HEMATOLOGY ORDERABLES Fi nal Result [facility] CLIA # [id number] [address] [address] [place] [address] * (ABNORMAL) COMPREHENSIVE METABOLIC PANEL (11/24/2022 6:37 PM [facility]) SODIUM 144 136 - 145 mmol/L 11/24/2022 8:06 PM [facility] POTASSIUM 4.6 3.5 - 5.1 mmol/L 11/24/2022 8:06 PM [facility] CHLORIDE 105 98 - 107 mmol/L 11/24/2022 8:06 PM [facility] CO2 28 22 - 29 mmol/L 11/24/2022 8:06 PM [facility] CALCIUM 9.4 8.8 - 10.2 mg/dL 11/24/2022 8:06 PM [facility] BUN 42(H) 8 - 23 mg/dL 11/24/2022 8:06 PM [facility] CREATININE 1.50(H) 0.67 - 1.17 mg/dL 11/24/2022 8:06 PM [facility] GLUCOSE 102(H) 74 - 99 mg/dL 11/24/2022 8:06 PM [facility] TOTAL PROTEIN 6.5 6.4 - 8.3 g/dL 11/24/2022 8:06 PM [facility] ALBUMIN 2.9(L) 3.5 - 5.2 g/dL 11/24/2022 8:06 PM [facility] BILIRUBIN TOTAL 0.4 0.2 - 1.0 mg/dL 11/24/2022 8:06 PM [facility] ALKALINE PHOSPHATASE 88 40 - 129 U/L 11/24/2022 8:06 PM [facility] AST 12 10 - 50 U/L 11/24/2022 8:06 PM [facility] ALT 9 <=50 U/L 11/24/2022 8:06 PM [facility] GFR 51(L) >=60 mL/min/1. 73 sq meter 11/24/2022 8:06 PM RETAIL BRAND AMBASSADOR [facility] Comment:eGFR calculated with 2020 CKD-EPI equation. Vegetarian diet, extremely high or low muscle mass, and may affect results. Cystatin C with Glomerular Filtration Rate is a suitable alternative for these patients. ANION GAP 11 9 - 20 mmol/L 11/24/2022 8:06 PM RETAIL BRAND AMBASSADOR [facility] Blood Collection / Unknown 11/24/2022 6:37 PM RETAIL BRAND AMBASSADOR 11/24/2022 7:25 PM RETAIL BRAND AMBASSADOR us Andre Mary MANUAL ARTS THERAPIST CHEMISTRY ORDERABLES Fin al Result [facility] CLIA # [id number] [facility] [address] documented in this encounter Visit Diagnoses Not on filedocumented in this encounter Additional Health Concerns Infection Onset Date Last Indicated Resolved Time C Diff 11/17/2022 11/17/2022 01/16/2023 1:16 AM CDT documented as of this encounter Care Teams Automotive General Manager Relationship Specialty Start Date End Date Shant Ballesteros Jr., MD [address] [place] [address] PCP - General Family Practice 01/19/14 documented as of this encounter
--- OUTSIDE RECORDS SUMMARY | 2025-05-05 11:28 | XMS_ITS | Encounter Summary ---
Author Organization [facility] Address [address] [place] [address] Care Team Providers Care Power Saw Operator Name Role Phone Favian Maldonado MD, Shant Humphreys Primary Care Provider Encounter Details Date Type Department Care Team (Late st Contact Info) Description 11/10/2022 Lab Requisition [facility] Laboratory Services [address] [place] [address] [place] [address] Soni Jeffery MD [address] [place] [address] Social History Tobacco Use Types Packs/Day Years Used Date Smoking Tobacco: Never Assessed Sex and Gender Information Value Date Recorded Sex Assigned at Not on file Legal 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 STORE SPECIALIST Gender Identity Not on file Sexual Orientation Not on file documented as of this encounter Plan of Treatment Not on file documented as of this encounter Procedures Procedure Name Priority Date/Time Associated Diagnosis Comments CBC WITH DIFFERENTIAL Stat 11/10/2022 2:20 PM STORE SPECIALIST documented in this encounter Results * (ABNORMAL) CBC WITH DIFFERENTIAL (11/10/2022 2:20 PM STORE SPECIALIST) WBC 5.2 4.8 - 10.8 K/uL 11/10/2022 3:18 PM STORE SPECIALIST [facility] RBC 2.60(L) 4.60 - 6.20 M/uL 11/10/2022 3:18 PM STORE SPECIALIST [facility] HEMOGLOBIN 7.6(L) 14.0 - 18.0 g/dL 11/10/2022 3:18 PM [facility] HEMATOCRIT 25.3(L) 41.0 - 53.0 % 11/10/2022 3:18 PM [facility] MCV 97.3 84.0 - 103.0 fL 11/10/2022 3:18 PM [facility] MCH 29.2 27.0 - 34.0 pg 11/10/2022 3:18 PM [facility] MCHC 30.0 30.0 - 35.0 g/dL 11/10/2022 3:18 PM [facility] RDW 15.8(H) 11.0 - 14.5 % 11/10/2022 3:18 PM [facility] RDW-STDEV 56.3(H) 37.0 - 54.0 fL 11/10/2022 3:18 PM [facility] PLATELETS 249 140 - 440 K/uL 11/10/2022 3:18 PM [facility] MPV 11.0 8.9 - 12.8 fL 11/10/2022 3:18 PM [facility] NEUTROPHILS 62 42 - 75 % 11/10/2022 3:18 PM [facility] LYMPHOCYTES 15(L) 24 - 44 % 11/10/2022 3:18 PM [facility] MONOCYTES 17(H) 2 - 10 % 11/10/2022 3:18 PM [facility] EOSINOPHILS 6 0 - 7 % 11/10/2022 3:18 PM [facility] BASOPHILS 1 0 - 1 % 11/10/2022 3:18 PM [facility] IMMATURE GRANULOCYTES 1 0 - 2 % 11/10/2022 3:18 PM [facility] NEUTROPHIL ABSOLUTE 3.22 2.00 - 8.00 K/uL 11/10/2022 3:18 PM [facility] LYMPHOCYTE ABSOLUTE 0.78(L) 1.20 - 4.00 K/uL 11/10/2022 3:18 PM [facility] MONOCYTE ABSOLUTE 0.87(H) 0.10 - 0.60 K/uL 11/10/2022 3:18 PM STORE SPECIALIST [facility] EOSINOPHIL ABSOLUTE 0.30 0.00 - 0.70 K/uL 11/10/2022 3:18 PM STORE SPECIALIST [facility] BASOPHILS ABSOLUTE 0.03 0.00 - 0.20 K/uL 11/10/2022 3:18 PM STORE SPECIALIST [facility] IMMATURE GRANULOCYTES ABSOLUTE 0.03 0.00 - 0.10 K/uL 11/10/2022 3:18 PM STORE SPECIALIST [facility] Blood Collection / Unknown 11/10/2022 2:20 PM STORE SPECIALIST 11/10/2022 3:09 PM STORE SPECIALIST Soni Jeffery MD HEMATOLOGY ORDERABLES Final Resu lt [facility] CLIA # [id number] [facility] [address] documented in this encounter Visit Diagnoses Not on filedocumented in this encounter Additional Health Concerns Infection Onset Date Last Indicated Resolved Time C Diff 11/17/2022 11/17/2022 01/16/2023 1:16 AM CDT documented as of this encounter Care Teams Power Saw Operator Relationship Specialty Start Date End Date Shant Ballesteros Jr., MD [address] [place] [id number] PCP - General Family Practice 01/19/14 documented as of this encounter
--- OUTSIDE RECORDS SUMMARY | 2025-05-05 11:28 | XMS_ITS | Encounter Summary ---
Author Organization [email or web address] Address [address] [place] [address] Care Team Providers Care Eligibility Clerk Name Role Phone Favian Maldonado MD, Shant Humphreys Primary Care Provider Encounter Details Date Type Department Care Team (Late st Contact Info) Description 11/25/2022 Lab Requisition [facility] Laboratory Services [address] [place] [address] Esther Sarmiento MD [address] [place] [address] Social History Tobacco Use Types Packs/Day Years Used Date Smoking Tobacco: Never Assessed Sex and Gender Information Value Date Recorded Sex Assigned at Not on file Legal 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 KICK PRESS SETTER Gender Identity Not on file Sexual Orientation Not on file documented as of this encounter Plan of Treatment Not on file documented as of this encounter Procedures Procedure Name Priority Date/Time Associated Diagnosis Comments BRAIN NATRIURETIC PEPTIDE, BNP OR PROBNP Routine 11/25/2022 1:40 AM KICK PRESS SETTER documented in this encounter Results * (ABNORMAL) BRAIN NATRIURETIC PEPTIDE, BNP OR PROBNP (11/25/2022 1:40 AM KICK PRESS SETTER) PROBNP, N TERMINAL 2,221(H) 0 - 125 pg/mL 11/25/2022 6:17 AM KICK PRESS SETTER [facility] Blood Collection / Unknown 11/25/2022 1:40 AM KICK PRESS SETTER 11/25/2022 6:02 AM KICK PRESS SETTER Esther Sarmiento MD CHEMISTRY ORDERABLES Final Resul t Performing Organization Address City/State/[facility] Co de Phone Number [facility] # [id number] [address] [address] [place] [address] documented in this encounter Visit Diagnoses Not on filedocumented in this encounter Additional Health Concerns Infection Onset Date Last Indicated Resolved Time C Diff 11/17/2022 11/17/2022 01/16/2023 1:16 AM CDT documented as of this encounter Care Teams Eligibility Clerk Relationship Specialty Start Date End Date Shant Ballesteros Jr., MD [address] [place] [address] PCP - General Family Practice 01/19/14 documented as of this encounter
--- OUTSIDE RECORDS SUMMARY | 2025-05-05 11:28 | XMS_ITS | Encounter Summary ---
Author Organization [facility] Address [address] [place] [address] Care Team Providers Care Thermoscrew Operator Name Role Phone Favian Maldonado MD, Shant Humphreys Primary Care Provider Encounter Details Date Type Department Care Team (Late st Contact Info) Description 11/17/2022 Lab Requisition [facility] Laboratory Services [address] [place] [address] Andre Mary, MADHU [address] [facility] [address] [place] [address] Social History Tobacco Use Types Packs/Day Years Used Date Smoking Tobacco: Never Assessed Sex and Gender Information Value Date Recorded Sex Assigned at Not on file Legal 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 DRY CELL AND BATTERY ASSEMBLER Gender Identity Not on file Sexual Orientation Not on file documented as of this encounter Plan of Treatment Not on file documented as of this encounter Procedures Procedure Name Priority Date/Time Associated Diagnosis Comments CBC WITH DIFFERENTIAL Stat 11/17/2022 4:30 AM DRY CELL AND BATTERY ASSEMBLER TRIGLYCERIDE Stat 11/17/2022 4:30 AM DRY CELL AND BATTERY ASSEMBLER PHOSPHORUS Stat 11/17/2022 4:30 AM DRY CELL AND BATTERY ASSEMBLER MAGNESIUM LEVEL Stat 11/17/2022 4:30 AM DRY CELL AND BATTERY ASSEMBLER COMPREHENSIVE METABOLIC PANEL Routine 11/17/2022 4:30 AM DRY CELL AND BATTERY ASSEMBLER documented in this encounter Results * TRIGLYCERIDE (11/17/2022 4:30 AM DRY CELL AND BATTERY ASSEMBLER) TRIGLYCERIDE 103 <150 mg/dL 11/17/2022 5:51 AM DRY CELL AND BATTERY ASSEMBLER [facility] Blood Collection / Unknown 11/17/2022 4:30 AM DRY CELL AND BATTERY ASSEMBLER 11/17/2022 5:31 AM DRY CELL AND BATTERY ASSEMBLER Narrative [facility] - 11/17/2022 5:51 AM DRY CELL AND BATTERY ASSEMBLER TRIGLYCERIDES mg/dL Normal < 150 Borderline High 150 - 199 High 200 - 499 Very High >= 500 Based on AHA/NCEP Guidelines. Andre Mary TOWN ADMINISTRATOR CHEMISTRY ORDERABLES Fin al Result Performing Organization Address City/[facility]/ZIP Co de Phone Number [facility] CLIA # [id number] [address] [place], [place] [id number] * PHOSPHORUS (11/17/2022 4:30 AM DRY CELL AND BATTERY ASSEMBLER) Pathologist [facility] PHOSPHORUS 3.2 2.5 - 4.5 mg/dL 11/17/2022 5:51 AM DRY CELL AND BATTERY ASSEMBLER [facility] Blood Collection / Unknown 11/17/2022 4:30 AM DRY CELL AND BATTERY ASSEMBLER 11/17/2022 5:31 AM DRY CELL AND BATTERY ASSEMBLER Andre Mary TOWN ADMINISTRATOR CHEMISTRY ORDERABLES Fin al Result [facility] CLIA # [id number] [address] [facility] [place], [place] [address] * MAGNESIUM LEVEL (11/17/2022 4:30 AM DRY CELL AND BATTERY ASSEMBLER) MAGNESIUM 2.1 1.6 - 2.4 mg/dL 11/17/2022 5:51 AM DRY CELL AND BATTERY ASSEMBLER [facility] Blood Collection / Unknown 11/17/2022 4:30 AM DRY CELL AND BATTERY ASSEMBLER 11/17/2022 5:31 AM DRY CELL AND BATTERY ASSEMBLER us Andre Mary NP CHEMISTRY ORDERABLES Fin al Result [facility] # [id number] [address] [facility] [place] [address] * (ABNORMAL) CBC WITH DIFFERENTIAL (11/17/2022 4:30 AM DRY CELL AND BATTERY ASSEMBLER) [facility] WBC 8.8 4.8 - 10.8 K/uL 11/17/2022 5:58 AM [facility] RBC 2.68(L) 4.60 - 6.20 M/uL 11/17/2022 5:58 AM [facility] HEMOGLOBIN 8.0(L) 14.0 - 18.0 g/dL 11/17/2022 5:58 AM [facility] HEMATOCRIT 27.6(L) 41.0 - 53.0 % 11/17/2022 5:58 AM [facility] MCV 103.0 84.0 - 103.0 fL 11/17/2022 5:58 AM [facility] MCH 29.9 27.0 - 34.0 pg 11/17/2022 5:58 AM [facility] MCHC 29.0(L) 30.0 - 35.0 g/dL 11/17/2022 5:58 AM [facility] RDW 18.1(H) 11.0 - 14.5 % 11/17/2022 5:58 AM [facility] RDW-STDEV 65.9(H) 37.0 - 54.0 fL 11/17/2022 5:58 AM [facility] PLATELETS 296 140 - 440 K/uL 11/17/2022 5:58 AM [facility] MPV 9.6 8.9 - 12.8 fL 11/17/2022 5:58 AM [facility] NEUTROPHILS 67 42 - 75 % 11/17/2022 5:58 AM [facility] LYMPHOCYTES 12(L) 24 - 44 % 11/17/2022 5:58 AM [facility] MONOCYTES 13(H) 2 - 10 % 11/17/2022 5:58 AM [facility] EOSINOPHILS 6 0 - 7 % 11/17/2022 5:58 AM [facility] BASOPHILS 1 0 - 1 % 11/17/2022 5:58 AM [facility] IMMATURE GRANULOCYTES 2 0 - 2 % 11/17/2022 5:58 AM [facility] NEUTROPHIL ABSOLUTE 5.91 2.00 - 8.00 K/uL 11/17/2022 5:58 AM [facility] LYMPHOCYTE ABSOLUTE 1.04(L) 1.20 - 4.00 K/uL 11/17/2022 5:58 AM [facility] MONOCYTE ABSOLUTE 1.10(H) 0.10 - 0.60 K/uL 11/17/2022 5:58 AM [facility] EOSINOPHIL ABSOLUTE 0.56 0.00 - 0.70 K/uL 11/17/2022 5:58 AM [facility] BASOPHILS ABSOLUTE 0.06 0.00 - 0.20 K/uL 11/17/2022 5:58 AM [facility] IMMATURE GRANULOCYTES ABSOLUTE 0.13(H) 0.00 - 0.10 K/uL 11/17/2022 5:58 AM [facility] Blood Collection / Unknown 11/17/2022 4:30 AM DRY CELL AND BATTERY ASSEMBLER 11/17/2022 5:30 AM [facility] us Andre Mary TOWN ADMINISTRATOR HEMATOLOGY ORDERABLES Fi nal Result [facility] CLIA # [id number] [address] [address] [place], [place] [id number] * (ABNORMAL) COMPREHENSIVE METABOLIC PANEL (11/17/2022 4:30 AM DRY CELL AND BATTERY ASSEMBLER) [facility] SODIUM 144 136 - 145 mmol/L 11/17/2022 5:51 AM [facility] POTASSIUM 3.8 3.5 - 5.1 mmol/L 11/17/2022 5:51 AM [facility] CHLORIDE 107 98 - 107 mmol/L 11/17/2022 5:51 AM [facility] CO2 34(H) 22 - 29 mmol/L 11/17/2022 5:51 AM [facility] CALCIUM 9.1 8.8 - 10.2 mg/dL 11/17/2022 5:51 AM [facility] BUN 20 8 - 23 mg/dL 11/17/2022 5:51 AM [facility] CREATININE 1.03 0.67 - 1.17 mg/dL 11/17/2022 5:51 AM [facility] GLUCOSE 151(H) 74 - 99 mg/dL 11/17/2022 5:51 AM [facility] TOTAL PROTEIN 6.5 6.4 - 8.3 g/dL 11/17/2022 5:51 AM [facility] ALBUMIN 2.8(L) 3.5 - 5.2 g/dL 11/17/2022 5:51 AM [facility] BILIRUBIN TOTAL 0.3 0.2 - 1.0 mg/dL 11/17/2022 5:51 AM [facility] ALKALINE PHOSPHATASE 69 40 - 129 U/L 11/17/2022 5:51 AM [facility] AST 12 10 - 50 U/L 11/17/2022 5:51 AM [facility] ALT 10 <=50 U/L 11/17/2022 5:51 AM [facility] GFR >60 >=60 mL/min/1.7 3 sq meter 11/17/2022 5:51 AM [facility] Comment:eGFR calculated with 2020 CKD-EPI equation. Vegetarian diet, extremely high or low muscle mass, and may affect results. Cystatin C with Glomerular Filtration Rate is a suitable alternative for these patients. ANION GAP 3(L) 9 - 20 mmol/L 11/17/2022 5:51 AM DRY CELL AND BATTERY ASSEMBLER [facility] [employer] [facility] Blood Collection / Unknown 11/17/2022 4:30 AM DRY CELL AND BATTERY ASSEMBLER 11/17/2022 5:31 AM DRY CELL AND BATTERY ASSEMBLER Andre Mary TOWN ADMINISTRATOR CHEMISTRY ORDERABLES Fin al Result [facility] [employer] [facility] CLIA # [id number] [address] [address] [place] [address] documented in this encounter Visit Diagnoses Not on filedocumented in this encounter Additional Health Concerns Infection Onset Date Last Indicated Resolved Time C Diff 11/17/2022 11/17/2022 01/16/2023 1:16 AM CDT documented as of this encounter Care Teams Thermoscrew Operator Relationship Specialty Start Date End Date Shant Ballesteros Jr., MD [address] [place] [address] PCP - General Family Practice 01/19/14 documented as of this encounter
--- OUTSIDE RECORDS SUMMARY | 2025-05-05 11:28 | XMS_ITS | Encounter Summary ---
Author Organization [employer] Address [address] [place] [address] Care Team Providers Care Label Maker Name Role Phone Favian Maldonado MD, Shant Humphreys Primary Care Provider Encounter Details Date Type Department Care Team (Late st Contact Info) Description 11/21/2022 Lab Requisition [facility] Laboratory Services [address] [place] [address] Low Amaya, DO [address] [place] [phone] Social History Tobacco Use Types Packs/Day Years Used Date Smoking Tobacco: Never Assessed Sex and Gender Information Value Date Recorded Sex Assigned at Not on file Legal 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 DIRECTOR INSTRUCTIONAL MATERIAL Gender Identity Not on file Sexual Orientation Not on file documented as of this encounter Plan of Treatment Not on file documented as of this encounter Procedures Procedure Name Priority Date/Time Associated Diagnosis Comments PHOSPHORUS Routine 11/21/2022 4:40 AM DIRECTOR INSTRUCTIONAL MATERIAL MAGNESIUM LEVEL Routine 11/21/2022 4:40 AM DIRECTOR INSTRUCTIONAL MATERIAL BASIC METABOLIC PANEL Routine 11/21/2022 4:40 AM DIRECTOR INSTRUCTIONAL MATERIAL documented in this encounter Results * MAGNESIUM LEVEL (11/21/2022 4:40 AM DIRECTOR INSTRUCTIONAL MATERIAL) MAGNESIUM 1.8 1.6 - 2.4 mg/dL 11/21/2022 5:26 AM DIRECTOR INSTRUCTIONAL MATERIAL [facility] Blood Collection / Unknown 11/21/2022 4:40 AM DIRECTOR INSTRUCTIONAL MATERIAL 11/21/2022 5:08 AM DIRECTOR INSTRUCTIONAL MATERIAL Low Amaya DO CHEMISTRY ORDERABLES Final R esult Performing Organization Address [facility]/ZIP Co de Phone Number [facility] CLIA # [id number] [address] [place] [address] * PHOSPHORUS (11/21/2022 4:40 AM DIRECTOR INSTRUCTIONAL MATERIAL) PHOSPHORUS 2.8 2.5 - 4.5 mg/dL 11/21/2022 5:26 AM [facility] Blood Collection / Unknown 11/21/2022 4:40 AM DIRECTOR INSTRUCTIONAL MATERIAL 11/21/2022 5:08 AM DIRECTOR INSTRUCTIONAL MATERIAL Low Amaya DO CHEMISTRY ORDERABLES Final R esult Performing Organization Address City/[facility]/ZIP Co de Phone Number [facility] CLIA # [id number] [address] [address] * (ABNORMAL) BASIC METABOLIC PANEL (11/21/2022 4:40 AM DIRECTOR INSTRUCTIONAL MATERIAL) SODIUM 145 136 - 145 mmol/L 11/21/2022 5:[address] [facility] POTASSIUM 3.5 3.5 - 5.1 mmol/L 11/21/2022 5:26 AM [facility] CHLORIDE 106 98 - 107 mmol/L 11/21/2022 5:26 AM [facility] CO2 31(H) 22 - 29 mmol/L 11/21/2022 5:26 AM [facility] CALCIUM 9.3 8.8 - 10.2 mg/dL 11/21/2022 5:26 AM [facility] BUN 29(H) 8 - 23 mg/dL 11/21/2022 5:26 AM [facility] CREATININE 0.95 0.67 - 1.17 mg/dL 11/21/2022 5:26 AM [facility] GLUCOSE 136(H) 74 - 99 mg/dL 11/21/2022 5:26 AM [facility] GFR >60 >=60 mL/min/1.7 3 sq meter 11/21/2022 5:26 AM [facility] Comment:eGFR calculated with 2020 CKD-EPI equation. Vegetarian diet, extremely high or low muscle mass, and may affect results. Cystatin C with Glomerular Filtration Rate is a suitable alternative for these patients. ANION GAP 8(L) 9 - 20 mmol/L 11/21/2022 5:26 AM [facility] Blood Collection / Unknown 11/21/2022 4:40 AM DIRECTOR INSTRUCTIONAL MATERIAL 11/21/2022 5:08 AM DIRECTOR INSTRUCTIONAL MATERIAL Low Amaya DO CHEMISTRY ORDERABLES Final R esult [facility] CLIA # [id number] [address] [place] [address] documented in this encounter Visit Diagnoses Not on filedocumented in this encounter Additional Health Concerns Infection Onset Date Last Indicated Resolved Time C Diff 11/17/2022 11/17/2022 01/16/2023 1:16 AM CDT documented as of this encounter Care Teams Label Maker Relationship Specialty Start Date End Date Shant Ballesteros Jr., MD [address] [place] [address] PCP - General Family Practice 01/19/14 documented as of this encounter
--- OUTSIDE RECORDS SUMMARY | 2025-05-05 11:28 | XMS_ITS | Patient Health Record ---
Author Organization [facility] Address [address] [place] [address] Care Team Providers Care Alarm Installation Technician Name Role Phone Kady Floyd Primary Care Provider Bala Wilson Unavailable [phone] KADY FLOYD Unavailable Unavailable Migration, Provider Unavailable Unavailable Miki Johnston Unavailable [phone] Tonya Woodruff Unavailable Allergies Allergen (clinical drug [...] Notes U[place], [place] - [address] Reviewed date:11/05/2024 02:44:16 PM Interpretation: Performing Lab: Notes/Report: Glucose 0 Bili 0 Ketones 0 Sp [place] 1.030 Blood 0 pH 5.5 Protein 1+ [...] IM Intramuscular 08/04/2020 Administered Influenza (whole), CPT 70773 Inactive Unknown 08/12/2018 Administered Pneumococcal polysaccharide PPV23 IM Intramuscular 08/04/2020 Administered Shingrix Unknown 11/12/2020 Administered Shingrix IM Intramuscular 08/04/2020 Administered Social History Tobacco Use: Social History [...] W/U Status Risk Notes Problem 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 Problem Calculus of kidney (92291139) Calculus of kidney (N20.0) Active confirmed Problem Nephrolithiasis (70224933) Nephrolithiasis (N20.0) Active confirmed Problem Benign hypertension (26442049) Hypertension, benign (I10) Active confirmed Problem Sleep apnea (10230784) Sleep apnea in adult (G47.30) Active confirmed Problem Gout (40618456) Gout (M10.9) Active confirmed Problem Insomnia (810564470) Insomnia, unspecified type (G47.00) Active confirmed Problem Low libido (8751932) Low libido (R68.82) Active confirmed Problem Fatigue (22890792) Fatigue (R53.83) Active conf irmed Problem Atrial fibrillation (59087703) Atrial fibrillation, unspecified type (I48.91) Active confirmed Problem Seasonal allergy (632138208) Seasonal allergies (J30.2) Active confirmed Problem Hypertension (37505845) Hypertension (I10) Active confirmed Problem Asthma without statu s asthmaticus (10226741) Uncomplicated asthma, unspecified asthma severity, unspecified whether persistent (J45.909) Active confirmed Problem Macrocytosis (50066425) Macrocytosis (D75.89) Active confirmed Problem Obstructive sleep apnea syndrome (21542223) Obstructive sleep apnea (adult) (pediatric) (327.23) 2016 Active confirmed [id number]- Problem Lumbosacral spondylosis without myelopathy (77406398) 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 Active confirmed [id number] [id number]- Problem Erectile dysfunction (217665903) Erectile dysfunction (302.72) 2013 Active confirmed Ramon-[id number] [id number]- Problem Adjustment disorder with depressed mood (30884278) Adjustment disorder with depressed mood (309.0) 2009 Problem resolved confirmed Ramon-[id number]- Problem Hand foot and mouth disease (325334883) Hand, foot, and mouth disease (074.3) 2012 Problem resolved confirmed Ramon-98 [id number]- Problem Sebaceous cyst (063790460) Sebaceous cyst (706.2) 2013 Problem resolved confirmed Ramon-[id number] [id number]- Problem Seborrhea (8990339044) Seborrhea (706.3) 2013 Problem resolved confirmed Ramon-[id number] [id number]- Problem Pressure ulcer, other site (707.09) 2017 Problem resolved confirmed Ramon-[id number] [id number]- Problem Fever (331705625) Fever, unspeci fied (780.60) 2011 Problem resolved confirmed Ramon-98 [id number]- Problem Palpitations (89729891) Palpitations (785.1) 2012 Problem resolved confirmed Ramon-98 [id number]- Problem Heartburn (97911328) Heartburn (787.1) 2014 Problem resolved confirmed Ramon-98 [id number]- Problem Screening for malignant neoplasm of prostate (461460105) Screening for prostate cancer (V76.44) 2017 Problem resolved confirmed Ramon-98 [id number]- Problem Spasm (74324777) Muscle spasm (728.85) 2012 Problem resolved confirmed Ramon-98 [id number]- Problem Androgen deficiency (01346434) Testosterone deficiency (257.2) 2013 Problem resolved confirmed Ramon-98 [id number]- Problem Rash (067479620) Rash (782.1) 2010 Problem resolved confirmed Ramon-98 [id number]- Problem Depression (581855751) Depression (311) 2010 Problem resolved confirmed Ramon-98 5911- Problem Dizziness (406501949) Dizziness (780.4) 0 2010 Problem resolved confirmed Ramon-98 [id number]- Problem Ventricular tachycardia (05815238) Ventricular tachycardia (427.1) 2007 Problem resolved confirmed Ramon-98 [id number]- Problem Hypercholesterolemia (47180173) Hypercholesterolemia (272.0) 2012 Problem resolved confirmed Ramon-98 [id number]- Problem Memory loss (03938176) Memory loss (780.9) 2014 Problem resolved confirmed Ramon-98 [id number]- Problem Secondary polycythemia (85457380) 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) 2017 Problem resolved confirmed Ramon-98 [id number]- Problem Shortness of breath (815541685) Shortness of breath (786.09) 2016 Problem resolved confirmed Ramon-98 5911- Problem Shoulder pain (08266488) Shoulder pain (719.41) 2013 Problem resolved confirmed Ramon-98 5911- Problem Disorder of hematopoietic system (08551344) Abnormal findings on blood examination, NEC (790.99) 2013 Problem resolved confirmed Ramon-98 5911- Problem Angina (681074593) Angina (413.9) 2010 Problem resolved confirmed Ramon-98 5911- Problem 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) 2011 Problem resolved confirmed Ramon-98 5911- Problem Disorder of hematopoietic system (67373903) Other abnormal findings on blood examination (790.99) 2015 Problem resolved confirmed Ramon-98 5911- Problem Disorder of hematopoietic system (59918370) Other abnormal laboratory result on blood (790.99) 2007 Problem resolved confirmed Ramon-98 5911- Problem 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) Atypical mole (238.2) 2008 Problem resolved confirmed Ramon-98 5911- Problem Chest pain (88708589) Chest pain (786.51) 2014 Problem resolved confirmed Ramon-98 5911- Problem Depressive disorder (68057342) Depressive disorder not elsewhere classified (311) 2014 Problem resolved confirmed Ramon-98 5911- Problem Generalized abdomina l pain (875686963) Generalized abdominal pain (789.07) 2008 Problem resolved confirmed Ramon-98 5911- Problem Lab: Used to mat ch unlinked laboratory orders (V92) 2014 Problem resolved confirmed Ramon-98 5911- Problem Impaired fasting glycaemia (757467507) Elevated fasting glucose (790.21) 2014 Problem resolved confirmed Ramon-98 5911- Problem Hemoglobinopathy (68940744) Elevated hematocrit (282.7) 2014 Problem resolved confirmed Ramon-98 5911- Problem Abnormal chest sound s (87450752121911) Egophany (786.7) 2016 Problem resolved confirmed Ramon-98 5911- Problem Insomnia (711951053) Insomnia (307.41) 2012 Problem resolved confirmed Ramon-98 5911- Problem Pain in limb (89061216) Leg pain (729.5) 2010 Problem resolved confirmed Ramon-98 5911- Problem Rib pain (775355029) Rib pain (786.50) 2013 Problem resolved confirmed Ramon-98 5911- Problem General examination of patient (814207843) Annual exam (V70.0) 2007 Problem resolved confirmed Ramon-98 5911- Problem Staphylococcal infectious disease (33688989) Staph infection (041.19) 2015 Problem resolved confirmed Ramon-98 5911- Problem Heart disease (02070595) Asymmetrical cardiac hypertrophy (429.9) 2007 Problem resolved confirmed Ramon-98 5911- Problem Obstructive sleep apnea (44429168) Obstructive sleep apnea (780.57) 2014 Problem resolved confirmed Ramon-98 5911- Problem Stress (398433142) Stress (300.02) 2008 Problem resolved confirmed Ramon-98 5911- Problem Acute upper respiratory infection (69972839) Acute upper respiratory infection of multiple sites (465.8) 2018 Problem resolved confirmed Ramon-98 5911- Problem Congestion (34117712) Congestion (477.9) 2007 Problem resolved confirmed Ramon-98 5911- Problem Lumbar radiculopathy (688907761) Lumbar radiculopathy (722.10) 2010 Problem resolved confirmed Ramon-98 5911- Problem Acquired polycythemi a (70079519) Acquired polycythemia (289.0) 2016 Problem resolved confirmed Ramon-98 5911- Problem Acute sinusitis (26032625) Acute sinusitis (461.8) 2007 Problem resolved confirmed Ramon-98 5911- Problem Ankle pain (194491667) Ankle pain (719.47) 2013 Problem resolved confirmed Ramon-98 5911- Problem Heart murmur (46907905) Cardiac murmur (785.2) 2007 Problem resolved confirmed Ramon-98 5911- Problem Erythrocyte sedimentation rate raised (790459385) Elevated sed rate (ESR) (790.1) 2011 Problem resolved confirmed Ramon-98 5911- Problem Gynecomastia (7338636) Gynecomastia (611.1) 2015 Problem resolved confirmed Ramon-98 5911- Problem Thrombosed external hemorrhoids (58359574) Hemorrhoids, external thrombosed (455.4) 2017 Problem resolved confirmed Ramon-98 5911- Problem Disorder of lipid metabolism (527966827) Low HDL level (272.9) 2010 Problem resolved confirmed Ramon-98 5911- Problem Left ventricular hypertrophy (22513995) LVH (429.3) 2010 Problem resolved confirmed Ramon-98 5911- Problem Cellulitis and abscess of lower leg (547748845) Cellulitis of the leg (682.6) 2013 Problem resolved confirmed Ramon-98 5911- Problem Change in voice (097357622) Change in voice (784.49) 2013 Problem resolved confirmed Ramon-98 5911- Problem Acute upper respiratory infection (83966584) Upper respiratory illness (465.8) 2007 Problem resolved confirmed Ramon-98 5911- Problem Kidney stone (97546880) kidney stones (592.0) 2007 Problem resolved confirmed Ramon-98 5911- Problem Cramp in lower limb (556983390) Leg cramps (729.82) 2017 Problem resolved confirmed Ramon-98 5911- Problem Low back pain (634110107) Lower back pain (724.2) 2010 Problem resolved confirmed Ramon-98 5911- Problem Dry mouth (22761549) Dry mouth (527.7) 2014 Problem resolved confirmed Ramon-98 5911- Problem Essential hypertension (30113009) Essential hypertension (401.1) 2010 Problem resolved confirmed Ramon-98 5911- Problem Impacted cerumen (12876443) External cerumen impaction (380.4) 2011 Problem resolved confirmed Ramon-98 5911- Problem Laceration of foot (852857910) Laceration of foot (892.0) 2011 Problem resolved confirmed Ramon-98 5911- Problem Pedal edema (801794990) Pedal edema (782.3) 2014 Problem resolved confirmed Ramon-98 5911- Problem Synovial cyst (884176006) Synovial cyst, NOS (727.40) 2017 Problem resolved confirmed Ramon-98 5911- Problem Thoracic back pain (129018377) Upper back pain (724.5) 2008 Problem resolved confirmed Ramon-98 5911- Problem Seborrheic keratosis (982969303) Seborrheic keratosis, other (702.19) 2015 Problem resolved confirmed Ramon-98 5911- Vital Signs Heart Rate 94 /min 11/05/2024 Temperature 97.73 degrees Fahrenheit 11/05/2024 Height-cm 193.04 cm 11/05/2024 Blood pressure diastolic 64 mm Hg 11/05/2024 Weight-kg 130.45 kg 11/05/2024 Height 76.00 in 11/05/2024 Blood pressure systolic 101 mm Hg 11/05/2024 Weight 287.6 lbs 11/05/2024 BMI 35 kg/m2 11/05/2024 Encounters Encounter Location Date Provider Diagnosis [facility] [address] [place] [address] Dr [address] [place] [address] 11/05/2024 Tonya Woodruff Hypertension I10 ; Testicular hypofunction E29.1 ; Nephrolithiasis N20.0 ; Fatigue R53.83 and Low libido R68.82 Migrated_Facility 0 0 07/26/2024 Provider Migration Migrated_Facility 0 0 07/25/2024 Provider Migration [facility] [address] [place] [address] 12/11/2024 Tonya Woodruff [facility] [address] [place] [address] 11/27/2024 Tonya [facility] [address] [place] [address] 11/05/2024 Miki Johnston Testicular hypofunct ion E29.1 [facility] [address] [place] [address] 09/25/2024 Miki Johnston [facility] [address] [place] [address] 09/25/2024 Miki Johnston [facility] [address] [place] [address] 07/09/2024 Miki Johnston Testicular hypofunct ion E29.1 [facility] [address] [place] [address] 07/03/2024 Miki Johnston Testicular hypofunct ion E29.1 [facility] [address] [place] [address] 06/19/2024 Miki Johnston Testicular hypofunct ion E29.1 [facility] [address] [place] [address] 06/15/2024 Miki Johnston Calculus of kidney N20.0 Assessments Encounter Date Diagnosis (ICD Code) Assessment Notes Treatment Notes Treatment Clinical Notes Section Notes 06/19/2024 Testicular hypofunction (ICD-10 - E29.1) 07/03/2024 Testicular hypofunction (ICD-10 - E29.1) 07/09/2024 Testicular hypofunction (ICD-10 - E29.1) 11/05/2024 Hypertension (ICD-10 - I10) Treated by PCP 11/05/2024 Testicular hypofunction (ICD-10 - E29.1) If [...] behavior. Persistent or severe side effects. 11/05/2024 Testicular hypofunction (ICD-10 - E29.1) 06/15/2024 [...] lower abdomen and groin. Pain during urination [place], red, or brown urine. Nausea and Vomiting [...] to help pass the stone. Pain Management: Dyim-lgk-uoirsks pain relievers like ibuprofen or acetaminophen. Medications: [...] Name Order Date CBC w\ Auto Diff 12252 06/15/2024 CBC w\ Auto Diff 80738 06/19/2024 Comprehensive Metabolic Panel (CMP) 8005 3 06/15/2024 Comprehensive Metabolic Panel (CMP) 8005 3 06/19/2024 Estradiol Level 50135 06/19/2024 Estradiol Level 28864 06/15/2024 Testosterone Total 65116 06/15/2024 Testosterone Total 74649 06/19/2024 Abdomen AP-20498 06/15/2024 Future Test Test Name Order Date CBC w\ Auto Diff 16403 03/30/2025 Comprehensive Metabolic Panel (CMP) 8005 3 03/30/2025 Estradiol Level 63636 03/30/2025 PSA Diagnostic--69165 03/30/2025 Testosterone Total 21981 03/30/2025 Next Appt Details Provider Name:Tonya Silverman, 05/05/2025 02:00:00 PM, [address], [place], [address], Insurance Providers Payer Name Payer Address Payer Phone Subscriber Number Group Number Insured Name Patient Relationship to Insured Coverage Start Date Coverage End Date [employer] [place] [employer] [address] [place] [address] [id number] Charan Smith Self - patient is the insured Medical (General) History Medical History History ICD Code Asymmetrical cardiac hypertrophy Hypertension Hypercholesterolemia Sleep apnea Osteoarthritis Testosterone deficiency Erectile dysfunction Depression OTHER MEDICAL PROVIDERS Insurance Account Representative- Dr. Orourke Pain management- Dr. Maldonado Urologist- Dr. Cage Guidance Director - Dr. Bala Juárez Thyroid tumor, benign 09/2020 Electrocution; 02/2020 Asthma CKD New onset of A-fib Surgical History Surgery Date(Month/Year) Fracture of wrist; 2004 Foot; left 2014 L4-L5 Fusion Hospitalization History Reason Date(Month/Year) New onset Afib 11/07/20 Covid 09/2020
--- OUTSIDE RECORDS SUMMARY | 2025-05-05 11:28 | XMS_ITS | Encounter Summary ---
Author Organization [facility] Address [address] [place] [address] Care Team Providers Care Abalone Fisherman Name Role Phone Favian Maldonado MD, Shant Humphreys Primary Care Provider Encounter Details Date Type Department Care Team (Late st Contact Info) Description 11/17/2022 Lab Requisition [facility] [address] [place] [address] Cary Javier PA-C [address] [place] [phone] Social History Tobacco Use Types Packs/Day Years Used Date Smoking Tobacco: Never Assessed Sex and Gender Information Value Date Recorded Sex Assigned at Not on file Legal 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 JUVENILE COUNSELOR Gender Identity Not on file Sexual Orientation Not on file documented as of this encounter Plan of Treatment Not on file documented as of this encounter Procedures Procedure Name Priority Date/Time Associated Diagnosis Comments C. DIFFICILE DETECTION Routine 11/17/2022 10:45 AM JUVENILE COUNSELOR documented in this encounter Results * (ABNORMAL) C. DIFFICILE DETECTION (11/17/2022 10:45 AM JUVENILE COUNSELOR) TOXIGENIC C DIFFICILE DETECTED( A) Not Detected 11/17/2022 1:45 PM JUVENILE COUNSELOR [email or web address] Stool STOOL SPECIMEN / Unknown Collection / Unknown 11/17/2022 10:45 AM JUVENILE COUNSELOR 11/17/2022 12:20 PM JUVENILE COUNSELOR Narrative [email or web address] - 11/17/2022 1:45 PM JUVENILE COUNSELOR Cdiff detected called to Cait Feng [facility] by CATRACHO REINA on 11/17/2022 at 1:44 [...] MICROBIOLOGY - GENERAL ORDERAB LES Final Result [email or web address] CLIA # [id number] [facility] [address] documented in this encounter Visit Diagnoses Not on filedocumented in this encounter Additional Health Concerns Infection Onset Date Last Indicated Resolved Time C Diff 11/17/2022 11/17/2022 01/16/2023 1:16 AM CDT documented as of this encounter Care Teams Abalone Fisherman Relationship Specialty Start Date End Date Shant Ballesteros Jr., MD [address] [place] [address] PCP - General Family Practice 01/19/14 documented as of this encounter
--- OUTSIDE RECORDS SUMMARY | 2025-05-05 11:28 | XMS_ITS | Encounter Summary ---
Author Organization [employer] Address [address] [place] [address] Care Team Providers Care Personal Secretary Name Role Phone Favian Maldonado MD, Shant Humphreys Primary Care Provider Encounter Details Date Type Department Care Team (Late st Contact Info) Description 11/26/2022 Lab Requisition [facility] Laboratory Services [address] [place] [address] [place] [address] Low Amaya, DO [address] [place] [address] Social History Tobacco Use Types Packs/Day Years Used Date Smoking Tobacco: Never Assessed Sex and Gender Information Value Date Recorded Sex Assigned at Not on file Legal 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 CONTROL PANEL BUILDER Gender Identity Not on file Sexual Orientation Not on file documented as of this encounter Plan of Treatment Not on file documented as of this encounter Procedures Procedure Name Priority Date/Time Associated Diagnosis Comments CBC WITH DIFFERENTIAL Routine 11/26/2022 1:15 AM CONTROL PANEL BUILDER TRIGLYCERIDE Routine 11/26/2022 1:15 AM CONTROL PANEL BUILDER PHOSPHORUS Routine 11/26/2022 1:15 AM CONTROL PANEL BUILDER MAGNESIUM LEVEL Routine 11/26/2022 1:15 AM CONTROL PANEL BUILDER COMPREHENSIVE METABOLIC PANEL Routine 11/26/2022 1:15 AM CONTROL PANEL BUILDER documented in this encounter Results * (ABNORMAL) TRIGLYCERIDE (11/26/2022 1:15 AM CONTROL PANEL BUILDER) TRIGLYCERIDE 172(H) <150 mg/dL 11/26/2022 6:58 AM [facility] Blood Collection / Unknown 11/26/2022 1:15 AM CONTROL PANEL BUILDER 11/26/2022 6:01 AM CONTROL PANEL BUILDER Narrative [facility] - 11/26/2022 6:58 AM CONTROL PANEL BUILDER TRIGLYCERIDES mg/dL Normal < 150 Borderline High 150 - 199 High 200 - 499 Very High >= 500 Based on AHA/NCEP Guidelines. Low Amaya DO CHEMISTRY ORDERABLES Final R [facility] Performing Organization Address City/[facility]/ZIP Co de Phone Number [facility] CLIA # [id number] [address] [id number] * PHOSPHORUS (11/26/2022 1:15 AM CONTROL PANEL BUILDER) PHOSPHORUS 3.2 2.5 - 4.5 mg/dL 11/26/2022 6:58 AM [facility] Blood Collection / Unknown 11/26/2022 1:15 AM CONTROL PANEL BUILDER 11/26/2022 6:01 AM CONTROL PANEL BUILDER Low Amaya DO CHEMISTRY ORDERABLES Final R esult [facility] CLIA # [id number] [id number] [place], [place] [address] * MAGNESIUM LEVEL (11/26/2022 1:15 AM CONTROL PANEL BUILDER) MAGNESIUM 2.0 1.6 - 2.4 mg/dL 11/26/2022 6:58 AM CONTROL PANEL BUILDER [facility] Blood Collection / Unknown 11/26/2022 1:15 AM CONTROL PANEL BUILDER 11/26/2022 6:01 AM CONTROL PANEL BUILDER us Low Amaya DO CHEMISTRY ORDERABLES Final R esult [facility] CLIA # [id number] [address] [facility] [place] [address] * (ABNORMAL) CBC WITH DIFFERENTIAL (11/26/2022 1:15 AM CONTROL PANEL BUILDER) [facility] WBC 6.1 4.8 - 10.8 K/uL 11/26/2022 6:14 AM [facility] RBC 2.61(L) 4.60 - 6.20 M/uL 11/26/2022 6:14 AM [facility] HEMOGLOBIN 7.8(L) 14.0 - 18.0 g/dL 11/26/2022 6:14 AM [facility] HEMATOCRIT 26.5(L) 41.0 - 53.0 % 11/26/2022 6:14 AM [facility] MCV 101.5 84.0 - 103.0 fL 11/26/2022 6:14 AM [facility] MCH 29.9 27.0 - 34.0 pg 11/26/2022 6:14 AM [facility] MCHC 29.4(L) 30.0 - 35.0 g/dL 11/26/2022 6:14 AM [facility] RDW 18.2(H) 11.0 - 14.5 % 11/26/2022 6:14 AM [facility] RDW-STDEV 66.1(H) 37.0 - 54.0 fL 11/26/2022 6:14 AM [facility] PLATELETS 222 140 - 440 K/uL 11/26/2022 6:14 AM [facility] MPV 10.6 8.9 - 12.8 fL 11/26/2022 6:14 AM [facility] NEUTROPHILS 63 42 - 75 % 11/26/2022 6:14 AM [facility] LYMPHOCYTES 18(L) 24 - 44 % 11/26/2022 6:14 AM [facility] MONOCYTES 13(H) 2 - 10 % 11/26/2022 6:14 AM [facility] EOSINOPHILS 5 0 - 7 % 11/26/2022 6:14 AM [facility] BASOPHILS 1 0 - 1 % 11/26/2022 6:14 AM [facility] IMMATURE GRANULOCYTES 1 0 - 2 % 11/26/2022 6:14 AM [facility] NEUTROPHIL ABSOLUTE 3.84 2.00 - 8.00 K/uL 11/26/2022 6:14 AM [facility] LYMPHOCYTE ABSOLUTE 1.09(L) 1.20 - 4.00 K/uL 11/26/2022 6:14 AM [facility] MONOCYTE ABSOLUTE 0.79(H) 0.10 - 0.60 K/uL 11/26/2022 6:14 AM [facility] EOSINOPHIL ABSOLUTE 0.32 0.00 - 0.70 K/uL 11/26/2022 6:14 AM [facility] BASOPHILS ABSOLUTE 0.04 0.00 - 0.20 K/uL 11/26/2022 6:14 AM [facility] IMMATURE GRANULOCYTES ABSOLUTE 0.03 0.00 - 0.10 K/uL 11/26/2022 6:14 AM [facility] Blood Collection / Unknown 11/26/2022 1:15 AM CONTROL PANEL BUILDER 11/26/2022 6:01 AM [facility] us Low Amaya DO HEMATOLOGY ORDERABLES Final Result [facility] CLIA # [id number] [facility] [address] [place] [address] * (ABNORMAL) COMPREHENSIVE METABOLIC PANEL (11/26/2022 1:15 AM CONTROL PANEL BUILDER) [facility] SODIUM 140 136 - 145 mmol/L 11/26/2022 6:58 AM [facility] POTASSIUM 3.9 3.5 - 5.1 mmol/L 11/26/2022 6:58 AM [facility] CHLORIDE 103 98 - 107 mmol/L 11/26/2022 6:58 AM [facility] CO2 30(H) 22 - 29 mmol/L 11/26/2022 6:58 AM [facility] CALCIUM 9.3 8.8 - 10.2 mg/dL 11/26/2022 6:58 AM [facility] BUN 34(H) 8 - 23 mg/dL 11/26/2022 6:58 AM [facility] CREATININE 1.08 0.67 - 1.17 mg/dL 11/26/2022 6:58 AM [facility] GLUCOSE 129(H) 74 - 99 mg/dL 11/26/2022 6:58 AM [facility] TOTAL PROTEIN 6.4 6.4 - 8.3 g/dL 11/26/2022 6:58 AM [facility] ALBUMIN 2.9(L) 3.5 - 5.2 g/dL 11/26/2022 6:58 AM [facility] BILIRUBIN TOTAL 0.3 0.2 - 1.0 mg/dL 11/26/2022 6:58 AM [facility] ALKALINE PHOSPHATASE 86 40 - 129 U/L 11/26/2022 6:58 AM [facility] AST 14 10 - 50 U/L 11/26/2022 6:58 AM [facility] ALT 10 <=50 U/L 11/26/2022 6:58 AM [facility] GFR >60 >=60 mL/min/1.7 3 sq meter 11/26/2022 6:58 AM [facility] Comment:eGFR calculated with 2020 CKD-EPI equation. Vegetarian diet, extremely high or low muscle mass, and may affect results. Cystatin C with Glomerular Filtration Rate is a suitable alternative for these patients. ANION GAP 7(L) 9 - 20 mmol/L 11/26/2022 6:58 AM CONTROL PANEL BUILDER [facility] Blood Collection / Unknown 11/26/2022 1:15 AM CONTROL PANEL BUILDER 11/26/2022 6:01 AM CONTROL PANEL BUILDER Low Amaya DO CHEMISTRY ORDERABLES Final R esult [facility] CLIA # [id number] [facility] [address] documented in this encounter Visit Diagnoses Not on filedocumented in this encounter Additional Health Concerns Infection Onset Date Last Indicated Resolved Time C Diff 11/17/2022 11/17/2022 01/16/2023 1:16 AM CDT documented as of this encounter Care Teams Personal Secretary Relationship Specialty Start Date End Date Shant Ballesteros Jr., MD [address] [place] [address] PCP - General Family Practice 01/19/14 documented as of this encounter
--- OUTSIDE RECORDS SUMMARY | 2025-05-05 11:28 | XMS_ITS | Encounter Summary ---
Author Organization [employer] [facility] Address [address] [place] [address] Care Team Providers Care Seat Nailer Name Role Phone Favian Maldonado MD, Shant Humphreys Primary Care Provider Encounter Details Date Type Department Care Team (Late st Contact Info) Description 11/22/2022 Lab Requisition [facility] Laboratory Services [address] [employer] [address] [place] [address] Low Amaya, DO [address] [place] [address] Social History Tobacco Use Types Packs/Day Years Used Date Smoking Tobacco: Never Assessed Sex and Gender Information Value Date Recorded Sex Assigned at Not on file Legal 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 MAIL DELIVERER Gender Identity Not on file Sexual Orientation Not on file documented as of this encounter Plan of Treatment Not on file documented as of this encounter Procedures Procedure Name Priority Date/Time Associated Diagnosis Comments CBC WITH DIFFERENTIAL Routine 11/22/2022 4:14 AM MAIL DELIVERER documented in this encounter Results * (ABNORMAL) CBC WITH DIFFERENTIAL (11/22/2022 4:14 AM MAIL DELIVERER) WBC 6.6 4.8 - 10.8 K/uL 11/22/2022 7:49 AM MAIL DELIVERER [facility] RBC 2.65(L) 4.60 - 6.20 M/uL 11/22/2022 7:49 AM MAIL DELIVERER [facility] HEMOGLOBIN 7.9(L) 14.0 - 18.0 g/dL 11/22/2022 7:49 AM [facility] HEMATOCRIT 26.8(L) 41.0 - 53.0 % 11/22/2022 7:49 AM [facility] MCV 101.1 84.0 - 103.0 fL 11/22/2022 7:49 AM [facility] MCH 29.8 27.0 - 34.0 pg 11/22/2022 7:49 AM [facility] MCHC 29.5(L) 30.0 - 35.0 g/dL 11/22/2022 7:49 AM [facility] RDW 18.6(H) 11.0 - 14.5 % 11/22/2022 7:49 AM [facility] RDW-STDEV 66.0(H) 37.0 - 54.0 fL 11/22/2022 7:49 AM [facility] PLATELETS 298 140 - 440 K/uL 11/22/2022 7:49 AM [facility] MPV 9.8 8.9 - 12.8 fL 11/22/2022 7:49 AM [facility] NEUTROPHILS 67 42 - 75 % 11/22/2022 7:49 AM [facility] LYMPHOCYTES 14(L) 24 - 44 % 11/22/2022 7:49 AM [facility] MONOCYTES 11(H) 2 - 10 % 11/22/2022 7:49 AM [facility] [employer] [facility] EOSINOPHILS 6 0 - 7 % 11/22/2022 7:49 AM [facility] [employer] [facility] BASOPHILS 1 0 - 1 % 11/22/2022 7:49 AM [facility] IMMATURE GRANULOCYTES 1 0 - 2 % 11/22/2022 7:49 AM [facility] NEUTROPHIL ABSOLUTE 4.40 2.00 - 8.00 K/uL 11/22/2022 7:49 AM [facility] LYMPHOCYTE ABSOLUTE 0.92(L) 1.20 - 4.00 K/uL 11/22/2022 7:49 AM [facility] MONOCYTE ABSOLUTE 0.74(H) 0.10 - 0.60 K/uL 11/22/2022 7:49 AM MAIL DELIVERER [facility] EOSINOPHIL ABSOLUTE 0.40 0.00 - 0.70 K/uL 11/22/2022 7:49 AM MAIL DELIVERER [facility] BASOPHILS ABSOLUTE 0.03 0.00 - 0.20 K/uL 11/22/2022 7:49 AM MAIL DELIVERER [facility] IMMATURE GRANULOCYTES ABSOLUTE 0.07 0.00 - 0.10 K/uL 11/22/2022 7:49 AM MAIL DELIVERER [facility] Blood Collection / Unknown 11/22/2022 4:14 AM MAIL DELIVERER 11/22/2022 7:43 AM MAIL DELIVERER Low Amaya DO HEMATOLOGY ORDERABLES Final Result Performing Organization Address City/State/[facility] Co de Phone Number [facility] CLIA # [id number] [facility] [address] documented in this encounter Visit Diagnoses Not on filedocumented in this encounter Additional Health Concerns Infection Onset Date Last Indicated Resolved Time C Diff 11/17/2022 11/17/2022 01/16/2023 1:1 6 AM CDT documented as of this encounter Care Teams Seat Nailer Relationship Specialty Start Date End Date Shant Ballesteros Jr., MD [address] [place] [address] PCP - General Family Practice 01/19/14 documented as of this encounter
--- OUTSIDE RECORDS SUMMARY | 2025-05-05 11:28 | XMS_ITS | Encounter Summary ---
Author Organization [employer] Address [address] [place] [address] Care Team Providers Care Dean Of Graduate Studies Name Role Phone Favian Maldonado MD, Shant Humphreys Primary Care Provider Encounter Details Date Type Department Care Team (Late st Contact Info) Description 11/25/2022 Lab Requisition [facility] Laboratory Services [address] [place] [address] [place] [address] Andre Mary, MADHU [address] [facility] [address] [place] [address] Social History Tobacco Use Types Packs/Day Years Used Date Smoking Tobacco: Never Assessed Sex and Gender Information Value Date Recorded Sex Assigned at Not on file Legal 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 TOOL TROUBLE SHOOTER Gender Identity Not on file Sexual Orientation Not on file documented as of this encounter Plan of Treatment Not on file documented as of this encounter Procedures Procedure Name Priority Date/Time Associated Diagnosis Comments RESPIRATORY PATHOGEN PCR PANEL Routine 11/25/2022 9:47 AM TOOL TROUBLE SHOOTER documented in this encounter Results * RESPIRATORY PATHOGEN PCR PANEL (11/25/2022 9:47 AM TOOL TROUBLE SHOOTER) Respiratory Pathogen PCR Panel NOT DETECTED No respiratory pathogen nucleic acids detected. 11/25/2022 11:29 AM TOOL TROUBLE SHOOTER [facility] [employer] [facility] COVID-19 PCR NOT DETECTED Not Detected 11/25/2022 11:29 AM TOOL TROUBLE SHOOTER [facility] Upper Respiratory ENTIRE NASOPHARYNX / Unknown Collection / Unknown 11/25/2022 9:47 AM TOOL TROUBLE SHOOTER 11/25/2022 10:36 AM TOOL TROUBLE SHOOTER Narrative [facility] - 11/25/2022 11:29 AM TOOL TROUBLE SHOOTER [employer] Respiratory Panel (RP2.1) is [...] parapertussis Chlamydophila pneumoniae Mycoplasma pneumoniae Andre Mary PROFESSOR OF PUBLIC ADMINISTRATION MICROBIOLOGY - GENERAL O RDERABLES Final Result [facility] # [id number] [address] [place] [address] documented in this encounter Visit Diagnoses Not on filedocumented in this encounter Additional Health Concerns Infection Onset Date Last Indicated Resolved Time C Diff 11/17/2022 11/17/2022 01/16/2023 1:16 AM CDT documented as of this encounter Care Teams Dean Of Graduate Studies Relationship Specialty Start Date End Date Shant Ballesteros Jr., MD [address] [place] [address] PCP - General Family Practice 01/19/14 documented as of this encounter
--- OUTSIDE RECORDS SUMMARY | 2025-05-05 11:28 | XMS_ITS | Encounter Summary ---
Author Organization [facility] Address [address] [place] [address] Care Team Providers Care Central Office Worker Name Role Phone Favian Maldonado MD, Shant Humphreys Primary Care Provider Encounter Details Date Type Department Care Team (Late st Contact Info) Description 11/20/2022 Lab Requisition [facility] Laboratory Services [address] [place] [address] [place] [address] Andre Mary, MADHU [address] [facility] [address] [place] [address] Social History Tobacco Use Types Packs/Day Years Used Date Smoking Tobacco: Never Assessed Sex and Gender Information Value Date Recorded Sex Assigned at Not on file Legal 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 MESH WORKER Gender Identity Not on file Sexual Orientation Not on file documented as of this encounter Plan of Treatment Not on file documented as of this encounter Procedures Procedure Name Priority Date/Time Associated Diagnosis Comments CBC WITH DIFFERENTIAL Routine 11/20/2022 3:55 PM MESH WORKER documented in this encounter Results * (ABNORMAL) CBC WITH DIFFERENTIAL (11/20/2022 3:55 PM MESH WORKER) WBC 7.3 4.8 - 10.8 K/uL 11/20/2022 4:35 PM MESH WORKER [facility] RBC 2.66(L) 4.60 - 6.20 M/uL 11/20/2022 4:35 PM MESH WORKER [facility] HEMOGLOBIN 8.0(L) 14.0 - 18.0 g/dL 11/20/2022 4:35 PM [facility] HEMATOCRIT 27.1(L) 41.0 - 53.0 % 11/20/2022 4:35 PM [facility] MCV 101.9 84.0 - 103.0 fL 11/20/2022 4:35 PM [facility] MCH 30.1 27.0 - 34.0 pg 11/20/2022 4:35 PM [facility] MCHC 29.5(L) 30.0 - 35.0 g/dL 11/20/2022 4:35 PM [facility] RDW 17.7(H) 11.0 - 14.5 % 11/20/2022 4:35 PM [facility] RDW-STDEV 62.4(H) 37.0 - 54.0 fL 11/20/2022 4:35 PM [facility] PLATELETS 302 140 - 440 K/uL 11/20/2022 4:35 PM [facility] MPV 9.6 8.9 - 12.8 fL 11/20/2022 4:35 PM [facility] NEUTROPHILS 68 42 - 75 % 11/20/2022 4:35 PM [facility] LYMPHOCYTES 15(L) 24 - 44 % 11/20/2022 4:35 PM [facility] MONOCYTES 12(H) 2 - 10 % 11/20/2022 4:35 PM [facility] EOSINOPHILS 3 0 - 7 % 11/20/2022 4:35 PM [facility] BASOPHILS 0 0 - 1 % 11/20/2022 4:35 PM [facility] IMMATURE GRANULOCYTES 1 0 - 2 % 11/20/2022 4:35 PM [facility] NEUTROPHIL ABSOLUTE 5.00 2.00 - 8.00 K/uL 11/20/2022 4:35 PM [facility] LYMPHOCYTE ABSOLUTE 1.06(L) 1.20 - 4.00 K/uL 11/20/2022 4:35 PM MESH WORKER [facility] MONOCYTE ABSOLUTE 0.91(H) 0.10 - 0.60 K/uL 11/20/2022 4:35 PM MESH WORKER [facility] EOSINOPHIL ABSOLUTE 0.22 0.00 - 0.70 K/uL 11/20/2022 4:35 PM [facility] BASOPHILS ABSOLUTE 0.02 0.00 - 0.20 K/uL 11/20/2022 4:35 PM [facility] IMMATURE GRANULOCYTES ABSOLUTE 0.10 0.00 - 0.10 K/uL 11/20/2022 4:35 PM [facility] Blood Collection / Unknown 11/20/2022 3:55 PM MESH WORKER 11/20/2022 4:30 PM MESH WORKER us Andre Mary FIRE PROTECTION DESIGNER HEMATOLOGY ORDERABLES Fi nal Result [facility] CLIA # [id number] [facility] [address] documented in this encounter Visit Diagnoses Not on filedocumented in this encounter Additional Health Concerns Infection Onset Date Last Indicated Resolved Time C Diff 11/17/2022 11/17/2022 01/16/2023 1:16 AM CDT documented as of this encounter Care Teams Central Office Worker Relationship Specialty Start Date End Date Shant Ballesteros Jr., MD [address] [place] [address] PCP - General Family Practice 01/19/14 documented as of this encounter
--- OUTSIDE RECORDS SUMMARY | 2025-05-05 11:28 | XMS_ITS | Encounter Summary ---
Author Organization [employer] [facility] Address [address] [place] [address] Care Team Providers Care Check Totaler Name Role Phone Favian Maldonado MD, Shant Humphreys Primary Care Provider Encounter Details Date Type Department Care Team (Late st Contact Info) Description 11/19/2022 Lab Requisition [facility] Laboratory Services [address] [place] [address] [place] [address] Low Amaya, DO [address] [place] [phone] Social History Tobacco Use Types Packs/Day Years Used Date Smoking Tobacco: Never Assessed Sex and Gender Information Value Date Recorded Sex Assigned at Not on file Legal 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 GEOTHERMAL POWERPLANT MECHANIC Gender Identity Not on file Sexual Orientation Not on file documented as of this encounter Plan of Treatment Not on file documented as of this encounter Procedures Procedure Name Priority Date/Time Associated Diagnosis Comments TRIGLYCERIDE Routine 11/19/2022 2:55 AM GEOTHERMAL POWERPLANT MECHANIC PHOSPHORUS Routine 11/19/2022 2:55 AM GEOTHERMAL POWERPLANT MECHANIC MAGNESIUM LEVEL Routine 11/19/2022 2:55 AM GEOTHERMAL POWERPLANT MECHANIC COMPREHENSIVE METABOLIC PANEL Routine 11/19/2022 2:55 AM GEOTHERMAL POWERPLANT MECHANIC documented in this encounter Results * TRIGLYCERIDE (11/19/2022 2:55 AM GEOTHERMAL POWERPLANT MECHANIC) TRIGLYCERIDE 126 <150 mg/dL 11/19/2022 6:43 AM GEOTHERMAL POWERPLANT MECHANIC [facility] Blood Collection / Unknown 11/19/2022 2:55 AM GEOTHERMAL POWERPLANT MECHANIC 11/19/2022 6:22 AM GEOTHERMAL POWERPLANT MECHANIC Narrative [facility] - 11/19/2022 6:43 AM GEOTHERMAL POWERPLANT MECHANIC TRIGLYCERIDES mg/dL Normal < 150 Borderline High 150 - 199 High 200 - 499 Very High >= 500 Based on AHA/NCEP Guidelines. Low Amaya DO CHEMISTRY ORDERABLES Final R esult Performing Organization Address [facility] Co de Phone Number [facility] CLIA # [id number] [address] [facility] [place] [address] * PHOSPHORUS (11/19/2022 2:55 AM GEOTHERMAL POWERPLANT MECHANIC) PHOSPHORUS 4.4 2.5 - 4.5 mg/dL 11/19/2022 6:43 AM GEOTHERMAL POWERPLANT MECHANIC [facility] Blood Collection / Unknown 11/19/2022 2:55 AM GEOTHERMAL POWERPLANT MECHANIC 11/19/2022 6:22 AM GEOTHERMAL POWERPLANT MECHANIC Low Amaya DO CHEMISTRY ORDERABLES Final R esult Performing Organization Address [facility] Co de Phone Number [facility] CLIA # [id number] [address] [address] * MAGNESIUM LEVEL (11/19/2022 2:55 AM GEOTHERMAL POWERPLANT MECHANIC) MAGNESIUM 1.9 1.6 - 2.4 mg/dL 11/19/2022 6:43 AM GEOTHERMAL POWERPLANT MECHANIC [facility] Blood Collection / Unknown 11/19/2022 2:55 AM GEOTHERMAL POWERPLANT MECHANIC 11/19/2022 6:22 AM GEOTHERMAL POWERPLANT MECHANIC Low Amaya DO CHEMISTRY ORDERABLES Final R esult Performing Organization Address [facility] Co de Phone Number [facility] CLIA # [id number] [address] [address] [place] [address] * (ABNORMAL) COMPREHENSIVE METABOLIC PANEL (11/19/2022 2:55 AM GEOTHERMAL POWERPLANT MECHANIC) SODIUM 144 136 - 145 mmol/L 11/19/2022 [...] mL/min/1.7 3 sq meter 11/19/2022 6:43 AM GEOTHERMAL POWERPLANT MECHANIC [facility] Comment:eGFR calculated with 2020 CKD-EPI equation. Vegetarian diet, extremely high or low muscle mass, and may affect results. Cystatin C with Glomerular Filtration Rate is a suitable alternative for these patients. ANION GAP 7(L) 9 - 20 mmol/L 11/19/2022 6:43 AM GEOTHERMAL POWERPLANT MECHANIC [facility] Blood Collection / Unknown 11/19/2022 2:55 AM GEOTHERMAL POWERPLANT MECHANIC 11/19/2022 6:22 AM GEOTHERMAL POWERPLANT MECHANIC us Low Amaya DO CHEMISTRY ORDERABLES Final R esult [facility] CLIA # [id number] [address] [address] documented in this encounter Visit Diagnoses Not on filedocumented in this encounter Additional Health Concerns Infection Onset Date Last Indicated Resolved Time C Diff 11/17/2022 11/17/2022 01/16/2023 1:16 AM CDT documented as of this encounter Care Teams Check Totaler Relationship Specialty Start Date End Date Shant Ballesteros Jr., MD [address] [place] [address] PCP - General Family Practice 01/19/14 documented as of this encounter
--- OUTSIDE RECORDS SUMMARY | 2025-05-05 11:28 | XMS_ITS | Clinical Summary ---
Author Organization [facility] Address [address] [facility] [address] Lara: Epic Prelude ADT JUVENAL MAHARAJ [id number] Care Team Providers Care Corncob Pipes Assembler Name Role Phone Favian Maldonado MD, [...] 01/04/20 23 Active naloxone (NARCAN) 4 mg/spray [place], Non-Aerosol EMERGENCY USE ONLY: Administer 1 spray [...] 12/21/2022 Immunizations Immunization Administration Dates Next Due ([employer])(12 YR UP) COVID-19 VACCINE - EMERGENCY USE AUTHORIZATION, MRNA, [id number](PF) 30 MCG/0.3 ML IM SUSP 11/09/2022 (PNEUMOVAX [...] on file Legal 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 SURTASS ANALYST Gender Identity Not on file Sexual [...] Advance Directives For more information, please contact: [phone] * Full Code (Latest Code Status on File) Date Activated Date Inactivated Comments 12/21/2022 9:43 PM 01/03/2023 3:13 PM Care Teams Corncob Pipes Assembler Relationship Specialty Start Date End Date Shant Ballesteros Jr., MD [address] [place] [address] PCP - General Family Practice 01/19/14
--- OUTSIDE RECORDS SUMMARY | 2025-05-05 11:28 | XMS_ITS | Encounter Summary ---
Author Organization [employer] [facility] Address [address] [place] [address] Care Team Providers Care Wire Bound Box Machine Operator Name Role Phone Favian Maldonado MD, Shant Humphreys Primary Care Provider Encounter Details Date Type Department Care Team (Late st Contact Info) Description 11/19/2022 Lab Requisition [facility] [address] [place] [address] Low Amaya, DO [address] [place] [address] Social History Tobacco Use Types Packs/Day Years Used Date Smoking Tobacco: Never Assessed Sex and Gender Information Value Date Recorded Sex Assigned at Not on file Legal 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 PERIPHERAL VASCULAR TECH Gender Identity Not on file Sexual Orientation Not on file documented as of this encounter Plan of Treatment Not on file documented as of this encounter Procedures Procedure Name Priority Date/Time Associated Diagnosis Comments CALCIUM IONIZED Routine 11/19/2022 3:45 PM PERIPHERAL VASCULAR TECH documented in this encounter Results * CALCIUM IONIZED (11/19/2022 3:45 PM PERIPHERAL VASCULAR TECH) CALCIUM IONIZED 5.2 4.8 - 5.6 mg/dL 11/21/2022 10:53 AM PERIPHERAL VASCULAR TECH [facility] Blood Collection / Unknown 11/19/2022 3:45 PM PERIPHERAL VASCULAR TECH 11/20/2022 7:56 AM PERIPHERAL VASCULAR TECH Narrative [facility] - 11/21/2022 10:53 AM PERIPHERAL VASCULAR TECH Performing Organization Information: Site ID: [id number] Name: [facility] Address: [address] [address] Director: Andrew Alvarado MD us Low Amaya DO CHEMISTRY ORDERABLES Final R esult [facility] documented in this encounter Visit Diagnoses Not on filedocumented in this encounter Additional Health Concerns Infection Onset Date Last Indicated Resolved Time C Diff 11/17/2022 11/17/2022 01/16/2023 1:16 AM CDT documented as of this encounter Care Teams Wire Bound Box Machine Operator Relationship Specialty Start Date End Date Shant Ballesteros Jr., MD [address] [place] [address] PCP - General Family Practice 01/19/14 documented as of this encounter
[2025-05-05 11:29] VITALS: PULSE 83; RESP 16; O2SAT 94
--- NOTE | 2025-05-05 11:36 | CT_ITS ---
WS: [id number] CT ABDOMEN AND PELVIS WITH CONTRAST HISTORY: abd pain, history of colon cancer. TECHNIQUE: Imaging performed of the abdomen and pelvis with IV contrast. Single phase imaging of the abdomen. Coronal and sagittal reformats are submitted. All CT scans at [facility] use at least one of these dose optimization techniques: automated exposure control; mA and/or kV adjustment per patient size (includes targeted exams where dose is matched to clinical indication); or iterative reconstruction. IV CONTRAST: Omnipaque 350; 100 mL IV. Oral contrast: No DLP: 1099.12 mGy.cm COMPARISON: 04/27/2025, 04/14/2025 Lower thorax: 5 mm noncalcified nodule RIGHT lung base. This nodule has been present on the most recent prior exams nodule not present on the study of 12/04/2023. Moderate cardiomegaly. Small hiatal hernia. Liver/biliary system: Patient has known hepatic metastatic disease involving a large portion of the RIGHT lobe. No progression since the most recent studies. No intrahepatic duct dilatation. Gallbladder: Normal. No gallstones or wall thickening. No pericholecystic fluid. Pancreas: Normal size pancreas and pancreatic duct. No adjacent inflammation. Spleen: Normal size spleen. No mass or infarct. Adrenal glands: Normal. Right kidney: No obstruction. There is a subcortical complex collection in the posterior RIGHT kidney which has been present on the most recent studies. No progression. This may be an area of prior hemorrhage or infection. Left kidney: LEFT renal cyst reidentified. Aorta: Mild atherosclerosis with no aneurysm. Lymphadenopathy: None. Free fluid: None. GI tract: Nondistended stomach. No small bowel obstruction. RIGHT lower quadrant colostomy. Partial colectomy. Resection site with sutures at the sigmoid is stable. No recurrent mass. There is no obstruction at the colostomy site. Abdominal wall: Unremarkable abdominal wall. No hernia. Pelvis: No free fluid or adenopathy within the pelvis. Mild prostate heterogeneity. Fat-containing LEFT inguinal canal. Bones: RIGHT scoliosis. Prior thoracic and lumbar fusion. CT/CT abdomen pelvis w con* [id number] IMPRESSION: 1. Status post partial colectomy. 2. RIGHT lower quadrant colostomy with no obstruction. 3. Patient has known metastatic disease involving a large portion of the RIGHT lobe of the liver with no obvious progression. 4. Stable subcapsular complex fluid collection RIGHT kidney with adjacent yumiko nephric stranding. 5. No renal obstruction. 6. RIGHT lower lobe 5 mm noncalcified nodule. Nodule was not present on the recent studies but not present on the study of 12/04/2023. Early metastatic nadja ng lesion needs to be considered. 7. No ascites or free air.
--- NOTE | 2025-05-05 11:36 | XR_ITS ---
WS: [id number] XR chest 1V portable [id number] REASON FOR EXAM: Possible Sepsis FINDINGS: Chest is unchanged compared to 04/14/2025. Properly positioned left chest port and with right IJ infusion catheter. Marr rods T3-L1. Significant tortuosity and ectasia of the thoracic aorta with mild cardiomegaly. No acute pulmonary parenchymal or pleural abnormality. XR/XR chest 1V portable [id number] IMPRESSION: Stable chest without acute abnormality as above.
[2025-05-05 11:43] LABS: Hematocrit 47.7 % (37-53); Hemoglobin 14.60 g/dL (11.27-16.99); Mean Corpuscular HGB Conc 30.6 g/dL (30-55); Mean Corpuscular Hemoglobin 28.8 pg (27-33); Mean Corpuscular Volume 94.1 fl (82-101); Nucleated Red Blood Cells % 0 %; Platelet Count 250 10^3/cmm (157-399); Red Blood Count 5.07 10^6/uL (3.85-5.65); White Blood Count 6.87 10^3/uL (3.29-11.43)
[2025-05-05 12:01] LABS: Alanine Aminotransferase 17 U/L (0-41); Albumin Level 4.2 g/dL (3.5-5.2); Alkaline Phosphatase 104 U/L (40-130); Blood Urea Nitrogen 15 mg/dL (8-23); Calcium 10.3 mg/dL (8.5-10.5); Carbon Dioxide 22 mmol/L (22-29); Chloride 97 mmol/L (98-107); Creatinine Clr Calc Pharmacy 68.9261; Globulin 4.3 g/dL (1.3-4.6); Glucose 137 mg/dL (65-115); Magnesium 2.2 mg/dL (1.7-2.3); Osmolality Calculated 291 mOsm/kg (285-295); Sodium 139 mmol/L (136-145); Total Protein 8.5 g/dL (6.6-8.7)
[2025-05-05 12:02] LABS: Anion Gap 23.8 (5-19); Potassium 3.8 mmol/L (3.5-5.1)
[2025-05-05 12:03] LABS: Aspartate Amino Transferase 34 U/L (0-40)
--- NOTE | 2025-05-05 12:13 | ECG_ITS ---
[email or web address] Date: 2025-05[facility]05 Pat Name: Charan Voss Department: Room: Gender: Male Adult Basic Education Teacher: : 1955 Requested By: Donato Chance Order Number: [id number] Richard MD: Raiza Orourke M.D. Measurements Intervals [place] Rate: 74 P: 0 SC: 0 QRS: -22 QRSD: 123 T: 71 QT: 450 QTc: 502 Interpretive Statements ATRIAL FIBRILLATION LEFT BUNDLE BRANCH BLOCK [120+ ms QRS DURATION, 80+ ms Q/S IN V1/V2, 85+ ms R IN I/aVL/V5/V6] possible old septal GA Compared to ECG 04/14/2025 14:53:58 Left bundle-branch block now present T-wave abnormality no longer present Possible ischemia no longer present Electronically Signed On 05-05-2025 22:53:43 CDT by Raiza Orourke M.D. [email or web address]
[2025-05-05] MEDS: iohexol 350 mg/mL 500 mL Btl (per mL) IV (12:30)
--- NOTE | 2025-05-05 12:31 | W.ED.WEAKNES ---
HPI - Weakness General: Chief complaint: Weakness Stated complaint: WEAKNESS Time Seen by Provider: 05/05/25 11:25 Source: patient Mode of arrival: ambulatory Limitations: no limitations History of Present Illness: 70-year-old male has a history of colon cancer he is currently on chemo he started a new chemo regimen 6 weeks ago he states that he has been having some abdominal pain and feeling very weak and dizzy he is sent here from [facility] as he was diaphoretic and hypotensive. He states that he had some nausea denies any vomiting or diarrhea has had a history of a colectomy. Associated symptoms: Denies chest pain, chills, fever(s), headache(s), nausea or vomiting Related Data Home Medications ?Medication ?Instructions ?Recorded ?Confirmed saw palmetto 500 mg capsule 500 mg PO DAILY 11/15/20 05/05/25 gabapentin 300 mg capsule 300 mg PO TID 02/04/23 05/05/25 albuterol sulfate 90 mcg/actuation 2 puff inhalation Q4H PRN 10/08/24 05/05/25 aerosol inhaler Shortness Of Breath digoxin 125 mcg (0.125 mg) tablet 0.125 mg PO DAILY 10/08/24 05/05/25 epinephrine 0.3 mg/0.3 mL See Rx Instructions .Route .COMPLEX 10/08/24 05/05/25 injection, auto-injector oxycodone 10 mg tablet 10 mg PO Q6H PRN Pain 10/08/24 05/05/25 vancomycin 125 mg capsule 125 mg PO DAILY 12/04/24 05/05/25 clobetasol 0.05 % topical cream 1 applic topical BID PRN hands 02/09/25 05/05/25 testosterone 3 pump topical DAILY 02/09/25 05/05/25 allopurinol 300 mg tablet 300 mg PO DAILY 04/14/25 05/05/25 fruquintinib 5 mg capsule See Rx Instructions .Route .COMPLEX 04/14/25 05/05/25 (Fruzaqla) metoprolol tartrate 25 mg tablet 25 mg PO Q12H 04/14/25 05/05/25 midodrine 5 mg tablet See Rx Instructions .Route .COMPLEX 04/14/25 05/05/25 sucralfate 1 gram tablet 1 g PO BID 04/14/25 05/05/25 Previous Rx's ?Medication ?Instructions ?Recorded pantoprazole 40 mg tablet,delayed 40 mg PO QAM #60 tabs 02/12/25 release (Protonix) amiodarone 200 mg tablet 200 mg PO DAILY #30 tabs 03/11/25 aspirin 81 mg tablet,delayed 81 mg PO DAILY #30 tabs 03/11/25 release atorvastatin 40 mg tablet 40 mg PO BEDTIME #30 tabs 03/11/25 divalproex 500 mg tablet,delayed 500 mg PO TID #30 tabs 03/11/25 release (Depakote) trazodone 150 mg tablet 150 mg PO BEDTIME #30 tabs 03/11/25 Allergies Allergy/AdvReac Type Severity Reaction Status Date / Time apixaban Allergy Unknown Headaches Verified 03/12/25 07:56 blackberry Allergy Unknown ADR-Diarrhe Verified 03/12/25 07:56 a blueberry Allergy Unknown ADR-Diarrhe Verified 03/12/25 07:56 a egg Allergy Unknown DIARRHEA, Verified 03/12/25 07:56 VOMITING AND STOMACH CRAMPING raspberry Allergy Unknown ADR-Diarrhe Verified 03/12/25 07:56 a strawberry Allergy Unknown ADR-Diarrhe Verified 03/12/25 07:56 a tomato Allergy Unknown ADR-Gastrointestinal Verified 03/12/25 07:56 Upset oats Allergy DIARRHEA Verified 03/12/25 07:56 Opioids - Morphine Analogues Allergy ADR-Chest Verified 03/12/25 07:56 Pain caffeine AdvReac Unknown PALPITATION Verified 03/12/25 07:56 S apple AdvReac DIARRHEA, Verified 03/12/25 07:56 VOMITING AND CRAMPING meperidine (From Demerol) AdvReac EXCESSIVE Verified 03/12/25 07:56 SEDATION morphine AdvReac HALLUCINATI Verified 03/12/25 07:56 ONS berries Allergy Unknown Unknown Uncoded 03/12/25 07:56 FRYE Allergy Unknown Diarrhea Uncoded 03/12/25 07:56 raw tomatoes Allergy Unknown ADR-Gastrointestinal Uncoded 03/12/25 07:56 Upset Review of Systems Const: Denies: fever(s), chills, body aches or change in appetite ENMT: Denies: throat pain or dental pain Card: Denies: chest pain Resp: Denies: dyspnea GI: Denies: abdominal pain, nausea, vomiting or diarrhea Musc: Denies: neck pain or back pain Skin/Breast: Denies: rash Neuro: Denies: headache(s) PFSH ED PFSH: Medical History (Updated 05/05/25 @ 14:10 by Donato Chance MD) Hydrops of gallbladder Atrial fibrillation with rapid ventricular response Elevated troponin Hypotension Orthostatic hypotension Complication of ostomy Ventilator dependent Intra-abdominal abscess post-procedure Metastatic colon cancer to liver Malignant neoplasm of splenic flexure Renal hematoma Colostomy complication C. 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 (~08/2022) hospitalized in [place] Chronic sinusitis of both maxillary sinuses Gout Asperger syndrome mild Dyslipidemia Degenerative joint disease (DJD) of lumbar spine Obstructive sleep apnea Chronic low back pain Substernal goiter Asthma Restrictive lung disease due to kyphoscoliosis Suspected exposure to asbestos Allergies Right renal stone Testosterone deficiency On TRT for 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 Erectile dysfunction Opioid contract exists previous Chronic pain syndrome Surgical History Hx of bilateral cataract extraction History of colostomy (11/01/22) Colostomy revision for control of bleeding History of exploratory laparotomy (10/15/22) Exploratory laparotomy with partial colon resection and with end colostomy formation Status post left hemicolectomy (10/08/22) laparoscopic converted to open, with splenic flexure takedown and right colon mobilization, primary anastamosis History of back surgery History of shoulder surgery History of appendectomy H/O arthroscopic knee surgery H/O ankle fusion H/O wrist surgery S/P ureteral stent placement Family History Grandfather CAD (coronary artery disease) Family/Other Cancer Grandmother Dementia Stroke Mother Lung disease Other Hypertension Denies family history of Rheumatoid arthritis Diabetes Lupus Clotting disorder Hyperlipidemia Chronic kidney disease (CKD) Suicide Anesthesia complication Bleeding disorder Social History Smoking and tobacco/nicotine status: former use of tobacco/nicotine Quit status (tobacco/nicotine): has quit using Year quit tobacco: 1975 [id number] Second hand smoke exposure: Yes Alcohol intake: never Substance/Drug Use: never Lives independently: Yes Current occupational status: retired Pets and animals: Yes Do you think of yourself as: Straight/Heterosexual Current gender identity: Male Physical Exam Const: COMMON NORMALS: patient oriented x3 HENMT: COMMON NORMALS: normocephalic and atraumatic HEAD & SCALP: normocephalic and atraumatic Eye: COMMON NORMALS: Equal, round and reactive pupils present and EOMs intact bilaterally PUPIL: Yes Equal, round and reactive pupils present Neck/C-Spine: COMMON NORMALS: full ROM and supple Chest: COMMONS NORMALS: normal inspection of the chest Resp: COMMON NORMALS: normal respiratory effort, No retractions, No use of accessory muscles and clear to auscultation bilaterally AUSCULTATION: clear to auscultation bilaterally Cardio: COMMON NORMALS: regular rate, regular rhythm and No murmurs present (Cardio) RATE: regular rate RHYTHM: regular rhythm GI: COMMON NORMALS: Normal to inspection, nondistended, normoactive bowel sounds present, Soft to palpation and no masses PALPATION: Yes Soft to palpation OTHER: diffuse tenderness Extremity: COMMON NORMALS: normal to inspection and full ROM Neuro: COMMON NORMALS: patient oriented x3, moves all extremities and no focal motor deficits Psych: COMMON NORMALS: mental status grossly normal, Normal thought process present and cooperative THOUGHT PROCESS: Normal thought process present Skin: COMMON NORMALS: no rashes or lesions noted and no wounds GENERAL SKIN EXAM: no rashes or lesions noted Course Vital Signs: Vital signs: Vital Signs Pulse Rate 86 05/05/25 13:55 Respiratory Rate 16 05/05/25 11:29 Blood Pressure 124/73 05/05/25 13:55 Pulse Oximetry 99 05/05/25 13:55 Oxygen Delivery Me thod Nasal Cannula 05/05/25 13:55 Oxygen Flow Rate 2 05/05/25 13:55 MDM - Weakness Medical Decision Making Patient presents here with generalized weakness he feels improved after IV fluids blood pressure did improve as well no signs of infection here CT scan showed no acute abnormalities I did recommend admission but he states he does not want to stay and rather go home he is going to follow-up with his oncologist he is to return if worsening he understands agrees to plan Medical Records I reviewed the patient's medical records. Lab Data I reviewed the patient's lab results. 05/05/25 11:40 05/05/25 11:40 Radiology Impressions Abdomen/Pelvis CT 05/05/25 11:36 IMPRESSION: 1. Status post partial colectomy. 2. RIGHT lower quadrant colostomy with no obstruction. 3. Patient has known metastatic disease involving a large portion of the RIGHT lobe of the liver with no obvious progression. 4. Stable subcapsular complex fluid collection RIGHT kidney with adjacent perinephric stranding. 5. No renal obstruction. 6. RIGHT lower lobe 5 mm noncalcified nodule. Nodule was not present on the most recent studies but not present on the study of 12/04/2023. Early metastatic lung lesion needs to be considered. 7. No ascites or free air. Chest X-Ray 05/05/25 11:36 IMPRESSION: Stable chest without acute abnormality as above. Laboratory Results WBC 6.87 10^3/uL (3.29-11.43) 05/05/25 11:40 RBC 5.07 10^6/uL (3.85-5.65) 05/05/25 11:40 Hgb 14.60 g/dL (11.27-16.99) 05/05/25 11:40 Hct 47.7 % (37-53) 05/05/25 11:40 MCV 94.1 fl (82-101) 05/05/25 11:40 MCH 28.8 pg (27-33) 05/05/25 11:40 MCHC 30.6 g/dL (30-55) 05/05/25 11:40 RDW 16.3 % (12.1-15.1) H 05/05/25 11:40 Plt Count 250 10^3/cmm (157-399) 05/05/25 11:40 MPV 10.5 fL (7.4-10.4) H 05/05/25 11:40 Neut % (Auto) 50.8 % 05/05/25 11:40 Lymph % (Auto) 33.2 % 05/05/25 11:40 [place] % (Auto) 9.0 % 05/05/25 11:40 Eos % (Auto) 5.5 % 05/05/25 11:40 Baso % (Auto) 1.2 % 05/05/25 11:40 Neut # (Auto) 3.49 10^3/uL (1.8-7.7) 05/05/25 11:40 Lymph # (Auto) 2.3 10^3/uL (0.8-4.8) 05/05/25 11:40 [place] # (Auto) 0.6 10^3/uL (0.2-0.9) 05/05/25 11:40 Eos # (Auto) 0.4 10^3/uL (0.0-0.8) 05/05/25 11:40 Baso # (Auto) 0.1 10^3/uL (0.0-0.1) 05/05/25 11:40 Nucleated RBC % (auto) 0 % 05/05/25 11:40 Nucleated RBCs # 0.0 /100WBC 05/05/25 11:40 Sodium 139 mmol/L (136-145) 05/05/25 11:40 Potassium 3.8 mmol/L (3.5-5.1) 05/05/25 11:40 Chloride 97 mmol/L (98-107) L 05/05/25 11:40 Carbon Dioxide 22 mmol/L (22-29) 05/05/25 11:40 Anion Gap 23.8 (5-19) H 05/05/25 11:40 BUN 15 mg/dL (8-23) 05/05/25 11:40 Creatinine 1.4 mg/dL (0.7-1.2) H 05/05/25 11:40 GFR Calculation 50.1 mL/min (90-130) L 05/05/25 11:40 Glucose 137 mg/dL (65-115) H 05/05/25 11:40 Calculated Osmolality 291 mOsm/kg (285-295) 05/05/25 11:40 Lactic Acid 3.4 mmol/L (0.5-2.2) H 05/05/25 12:47 Calcium 10.3 mg/dL (8.5-10.5) 05/05/25 11:40 Magnesium 2.2 mg/dL (1.7-2.3) 05/05/25 11:40 Total Bilirubin 0.4 mg/dL (0.15-1.2) 05/05/25 11:40 AST 34 U/L (0-40) 05/05/25 11:40 ALT 17 U/L (0-41) 05/05/25 11:40 Alkaline Phosphatase 104 U/L (40-130) 05/05/25 11:40 Total Protein 8.5 g/dL (6.6-8.7) 05/05/25 11:40 Albumin 4.2 g/dL (3.5-5.2) 05/05/25 11:40 Globulin 4.3 g/dL (1.3-4.6) 05/05/25 11:40 Urine Color Yellow (Yellow) 05/05/25 13:50 Urine Appearance Clear (CLEAR) 05/05/25 13:50 Urine pH 5.0 (5-7) 05/05/25 13:50 Ur Specific [place] 1.025 (1.005-1.030) 05/05/25 13:50 Urine Protein Negative (Negative) 05/05/25 13:50 Urine Glucose (UA) Negative (Normal) 05/05/25 13:50 Urine Ketones Negative (Negative) 05/05/25 13:50 Urine Blood Negative (Negative) 05/05/25 13:50 Urine Nitrate Negative (Negative) 05/05/25 13:50 Urine Bilirubin Negative (Negative) 05/05/25 13:50 Urine Urobilinogen 0.2 mg/dL (Negative) 05/05/25 13:50 Ur Leukocyte Esterase Negative (Negative) 05/05/25 13:50 Urine RBC 0-2 /hpf (0-2) 05/05/25 13:50 Urine WBC 0-5 /hpf (0-5) 05/05/25 13:50 Ur Squamous Epith Cells 0-5 /hpf (0-5) 05/05/25 13:50 Amorphous Sediment Not Reportable 05/05/25 13:50 Urine Bacteria None seen /hpf (NONE) 05/05/25 13:50 Hyaline Casts 6.61 /lpf 05/05/25 13:50 All radiology interpretation(s) finalized by discharge Discharge Plan Discharge Patient Disposition: Home Clinical Impression: Generalized weakness, Metastatic colon cancer to liver Condition: Stable Prescriptions: No Action saw palmetto 500 mg capsule 500 mg PO DAILY vancomycin 125 mg capsule 125 mg PO DAILY testosterone 20.25 mg/1.25 gram (1.62 %) gel in metered-dose pump 3 pump topical DAILY clobetasol 0.05 % cream 1 applic TOPICAL BID PRN (Reason: hands) pantoprazole [Protonix] 40 mg tablet,delayed release (DR/EC) 40 mg PO QAM Qty: 60 0RF sucralfate 1 gram tablet 1 g PO BID midodrine 5 mg tablet See Rx Instructions .ROUTE .COMPLEX Rx Instructions: TAKE 1 TABLET BY MOUTH THREE TIMES DAILY. HOLD FOR SBP MORE THAN 120 MMHG. allopurinol 300 mg tablet 300 mg PO DAILY metoprolol tartrate 25 mg tablet 25 mg PO Q12H Fruzaqla 5 mg capsule See Rx Instructions .ROUTE .COMPLEX Rx Instructions: Take 1 capsule by mouth daily for 3 weeks, then off 1 week. gabapentin 300 mg capsule 300 mg PO TID digoxin 125 mcg (0.125 mg) tablet 0.125 mg PO DAILY epinephrine 0.3 mg/0.3 mL auto-injector See Rx Instructions .ROUTE .COMPLEX Rx Instructions: INJECT CONTENTS OF 1 PEN NEEDED FOR ALLERGIC REACTION albuterol sulfate 90 mcg/actuation HFA aerosol inhaler 2 puff INHALATION Q4H PRN (Reason: Shortness Of Breath) oxycodone 10 mg tablet 10 mg PO Q6H PRN (Reason: Pain) atorvastatin 40 mg Tablet 40 mg PO BEDTIME Qty: 30 0RF aspirin 81 mg Tablet,Delayed Release (Dr/Ec) 81 mg PO DAILY Qty: 30 0RF divalproex [Depakote] 500 mg tablet,delayed release (DR/EC) 500 mg PO TID Qty: 30 0RF amiodarone 200 mg tablet 200 mg PO DAILY Qty: 30 0RF trazodone 150 mg tablet 150 mg PO BEDTIME Qty: 30 0RF Discharge Orders: Discharge ED (Routine); Ordered 05/05/25 Ordered By: Donato Chance Referrals: Al Álvarez MD [Primary Care Provider, Family Practice] - 4-7 days Discharge Diet: Advance as tolerated Discharge Activity: Resume usual activity Patient Instructions: Weakness (ED) Print Language: Spanish Coding Level of Care Code ED [employer] 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
[2025-05-05 12:43] VITALS: BP 112/81; PULSE 75; O2SAT 98
[2025-05-05 13:08] LABS: Lactic Sepsis W/Reflex 3.4 mmol/L (0.5-2.2)
--- NOTE | 2025-05-05 13:36 | PC.PHAR ---
Pt states he took his morning medications and he took his chemo med at bedtime last night. Several of pts' meds show last fill dates that are over 90 days old. Verified with [facility]. [facility]
[2025-05-05] MEDS: piperacillin-tazobactam 3.375 GM in sodium chloride 0.9% (plus) 50 ML IV (13:54)
[2025-05-05 13:55] VITALS: BP 124/73; PULSE 86; O2SAT 99
[2025-05-05 13:58] LABS: Glucose Urine UA Negative (Normal); Nitrate Urine Negative (Negative); Specific Gravity, Urine 1.025 (1.005-1.030)
[2025-05-05 14:03] LABS: Add Urine Microscopic? YES
[2025-05-05 14:38] LABS: Reflex Lactate Order REFLEX LACTIC ORDERD
== END 2025-05-05 17:12 | disposition home or self-care (01) ==
PROVIDERS: Emergency Provider Emergency Medicine; PCP Family Medicine
DX: R53.1 Weakness (principal); C78.7 Secondary malignant neoplasm of liver and intrahepatic bile duct; Z79.82 Long term (current) use of aspirin; Z87.891 Personal history of nicotine dependence; Z85.038 Personal history of other malignant neoplasm of large intestine; E78.5 Hyperlipidemia, unspecified
CPT/HCPCS: 36415; 71045; 74177; 80053; 81001; 83605; 83735; 85025; 87040; 93005; 96374; 96375; 99285; J2543; J3373; J7030; J7050

== ENCOUNTER 2025-05-14 15:39 | Emergency (ER) | payer MEDICARE, SELFPAY ==
--- OUTSIDE RECORDS SUMMARY | 2025-05-05 09:00 | XMS_ITS ---
Author Organization [facility] Address [address] [place] [address] Care Team Providers Care Dance Coach Name Role Phone Kady Floyd Primary Care Provider Bala Wilson Unavailable [phone] KADY FLOYD Unavailable Unavailable Tonya Woodruff Unavailable [phone] REASON FOR VISIT 6m f/u w cbc,cmp, testosterone, estradiol , psa Encounters Encounter Location Date Provider Diagnosis [facility] [address] [place] [address], [place] [address] 05/05/2025 Tonya Woodruff Testicular hypofunction E29.1 ; Low libido R68.82 and Fatigue R53.83 Assessments Encounter Date Diagnosis (ICD Code) Assessment Notes Treatment Notes Treatment Clinical Notes Section Notes 05/05/2025 Testicular hypofunction (ICD-10 - E29.1) 05/05/2025 Low libido (ICD-10 - R68.82) 05/05/2025 Fatigue (ICD-10 - R53.83) Plan Of Treatment No Information Progress Notes * Charan KAMARA TDOB:1955 (70 yo M)Acc No.[id number]:05/05/2025 Progress Notes Patient: Charan Robison Provider: JIMENA Ramos :1955 A ge:70 Y S ex:Male Date:05/05/2025 Address:[address] [place], [place] [id number] Pcp:Kady Floyd Subjective: * Chief Complaints: * [...] * Electronic signature of JIMENA Romeo on 05/14/2025 at 03:58 PM CDT Sign off status: Pending * Provider: JIMENA Ramos Date: 05/05/2025 Generated for Man Ho/Flaquito on: 05/14/2025 03:58 PM CDT
[2025-05-14 15:35] VITALS: BP 94/64; PULSE 75; RESP 16; TEMP 36.6; O2SAT 94; BMI 31.6
--- NOTE | 2025-05-14 15:38 | XRR_ITS ---
PROCEDURE INFORMATION: Exam: XR Left Elbow Exam date and time: 05/14/2025 3:47 PM Age: 70 years old Clinical indication: Injury or trauma; Other: Not specified; Blunt trauma (contusions or hematomas); Elbow; Left TECHNIQUE: Imaging protocol: Radiologic exam of the left elbow. Views: 3 or more views. COMPARISON: CR XR hand LT min 3V* [id number] 12/06/2020 11:10 AM FINDINGS: Bones/joints: No acute fracture or dislocation. Small enthesophyte along the olecranon process of the ulna. No significant joint effusion. Soft tissues: Mild soft tissue swelling along the extensor surface of the distal upper arm. XR/XR elbow LT min 3V* [id number] IMPRESSION: No acute osseous findings. CT could be considered for further evaluation if there is clinical concern.
--- NOTE | 2025-05-14 15:54 | XRR_ITS ---
PROCEDURE INFORMATION: Exam: XR Left Knee Exam date and time: 05/14/2025 4:34 PM Age: 70 years old Clinical indication: Injury or trauma; Fall; Blunt trauma; Knee; Left TECHNIQUE: Imaging protocol: Radiologic exam of the left knee. Views: 3 views. COMPARISON: CR XR knee LT 3V* [id number] 04/27/2025 4:27 PM FINDINGS: Bones/joints: No acute fracture or dislocation. Old healed fracture again seen along the proximal fibula. Marginal osteophytes and joint space narrowing most pronounced in the medial compartment. Patellar spurring again seen. No joint effusion. Soft tissues: Normal. XR/XR knee LT 3V* [id number] IMPRESSION: No acute osseous findings.
--- NOTE | 2025-05-14 15:54 | XRR_ITS ---
PROCEDURE INFORMATION: Exam: XR Lumbosacral Spine Exam date and time: 05/14/2025 4:34 PM Age: 70 years old Clinical indication: Injury or trauma; Fall; Blunt trauma (contusions or hematomas) TECHNIQUE: Imaging protocol: Radiologic exam of the lumbosacral spine. Views: 2 or 3 views. COMPARISON: CR XR lumbar spine min 4V [id number] 08/16/2022 1:42 PM FINDINGS: Bones/joints: Thoracolumbar fusion hardware again seen along with fusion at L4-L5. Similar rightward curvature of the thoracolumbar spine. Multilevel lumbar spondylosis again seen, overall similar to prior. No definite acute fracture. Vertebral body heights are maintained. Soft tissues: Unremarkable. XR/XR lumbar spine 2-3V* [id number] IMPRESSION: 1. No acute findings. 2. Stable thoracolumbar and lumbosacral fusion hardware. 3. Multilevel lumbar spondylosis with dextroscoliosis.
--- NOTE | 2025-05-14 15:55 | W.ED.FALL ---
HPI - Fall General: Chief Complaint: Fall Stated Complaint: ELBOW PAIN Source: patient and EMS Mode of arrival: EMS Limitations: no limitations History of Present Illness: 70-year-old male states he was going to [facility] today to have his blood drawn states that while walking he got slightly dizzy and then tripped and fell. States he has some pain in his right knee his low back but most of his pain is in his left elbow rates pain a 4 out of 10 denies hitting his head denies any loss conscious denies any chest or abdominal pain Associated symptoms-after fall: Denies abdominal pain, chest pain, headache(s) or neck pain Related Data Home Medications ?Medication ?Instructions ?Recorded ?Confirmed saw palmetto 500 mg capsule 500 mg PO DAILY 11/15/20 05/14/25 gabapentin 300 mg capsule 300 mg PO TID 02/04/23 05/14/25 albuterol sulfate 90 mcg/actuation 2 puff inhalation Q4H PRN 10/08/24 05/14/25 aerosol inhaler Shortness Of Breath digoxin 125 mcg (0.125 mg) tablet 0.125 mg PO DAILY 10/08/24 05/14/25 epinephrine 0.3 mg/0.3 mL See Rx Instructions .Route .COMPLEX 10/08/24 05/14/25 injection, auto-injector oxycodone 10 mg tablet 10 mg PO Q6H PRN Pain 10/08/24 05/14/25 vancomycin 125 mg capsule 125 mg PO DAILY 12/04/24 05/14/25 clobetasol 0.05 % topical cream 1 applic topical BID PRN hands 02/09/25 05/14/25 testosterone 3 pump topical DAILY 02/09/25 05/14/25 allopurinol 300 mg tablet 300 mg PO DAILY 04/14/25 05/14/25 fruquintinib 5 mg capsule See Rx Instructions .Route .COMPLEX 04/14/25 05/14/25 (Fruzaqla) metoprolol tartrate 25 mg tablet 25 mg PO Q12H 04/14/25 05/14/25 midodrine 5 mg tablet See Rx Instructions .Route .COMPLEX 04/14/25 05/14/25 sucralfate 1 gram tablet 1 g PO BID 04/14/25 05/14/25 Previous Rx's ?Medication ?Instructions ?Recorded pantoprazole 40 mg tablet,delayed 40 mg PO QAM #60 tabs 02/12/25 release (Protonix) amiodarone 200 mg tablet 200 mg PO DAILY #30 tabs 03/11/25 aspirin 81 mg tablet,delayed 81 mg PO DAILY #30 tabs 03/11/25 release atorvastatin 40 mg tablet 40 mg PO BEDTIME #30 tabs 03/11/25 divalproex 500 mg tablet,delayed 500 mg PO TID #30 tabs 03/11/25 release (Depakote) trazodone 150 mg tablet 150 mg PO BEDTIME #30 tabs 03/11/25 Allergies Allergy/AdvReac Type Severity Reaction Status Date / Time apixaban Allergy Unknown Headaches Verified 05/14/25 15:48 blackberry Allergy Unknown ADR-Diarrhe Verified 05/14/25 15:48 a blueberry Allergy Unknown ADR-Diarrhe Verified 05/14/25 15:48 a egg Allergy Unknown DIARRHEA, Verified 05/14/25 15:48 VOMITING AND STOMACH CRAMPING raspberry Allergy Unknown ADR-Diarrhe Verified 05/14/25 15:48 a strawberry Allergy Unknown ADR-Diarrhe Verified 05/14/25 15:48 a tomato Allergy Unknown ADR-Gastrointestinal Verified 05/14/25 15:48 Upset oats Allergy DIARRHEA Verified 05/14/25 15:48 Opioids - Morphine Analogues Allergy ADR-Chest Verified 05/14/25 15:48 Pain caffeine AdvReac Unknown PALPITATION Verified 05/14/25 15:48 S apple AdvReac DIARRHEA, Verified 05/14/25 15:48 VOMITING AND CRAMPING meperidine (From Demerol) AdvReac EXCESSIVE Verified 05/14/25 15:48 SEDATION morphine AdvReac HALLUCINATI Verified 05/14/25 15:48 ONS berries Allergy Unknown Unknown Uncoded 05/14/25 15:48 FRYE Allergy Unknown Diarrhea Uncoded 05/14/25 15:48 raw tomatoes Allergy Unknown ADR-Gastrointestinal Uncoded 05/14/25 15:48 Upset Review of Systems Const: Denies: fever(s), chills, body aches or change in appetite ENMT: Denies: throat pain or dental pain Card: Denies: chest pain Resp: Denies: dyspnea GI: Denies: abdominal pain, nausea, vomiting or diarrhea Musc: Reports: back pain and extremity pain; Denies: neck pain Skin/Breast: Denies: rash Neuro: Denies: headache(s) PFSH ED PFS: Medical History (Updated 05/14/25 @ 17:11 by Donato Chance MD) Hydrops of gallbladder Atrial fibrillation with rapid ventricular response Elevated troponin Hypotension Orthostatic hypotension Complication of ostomy Ventilator dependent Intra-abdominal abscess post-procedure Metastatic colon cancer to liver Malignant neoplasm of splenic flexure Renal hematoma Colostomy complication C. 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 (~08/2022) hospitalized in [place] Chronic sinusitis of both maxillary sinuses Gout Asperger syndrome mild Dyslipidemia Degenerative joint disease (DJD) of lumbar spine Obstructive sleep apnea Chronic low back pain Substernal goiter Asthma Restrictive lung disease due to kyphoscoliosis Suspected exposure to asbestos Allergies Right renal stone Testosterone deficiency On TRT for 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 Erectile dysfunction Opioid contract exists previous Chronic pain syndrome Surgical History Hx of bilateral cataract extraction History of colostomy (11/01/22) Colostomy revision for control of bleeding History of exploratory laparotomy (10/15/22) Exploratory laparotomy with partial colon resection and with end colostomy formation Status post left hemicolectomy (10/08/22) laparoscopic converted to open, with splenic flexure takedown and right colon mobilization, primary anastamosis History of back surgery History of shoulder surgery History of appendectomy H/O arthroscopic knee surgery H/O ankle fusion H/O wrist surgery S/P ureteral stent placement Family History Grandfather CAD (coronary artery disease) Family/Other Cancer Grandmother Dementia Stroke Mother Lung disease Other Hypertension Denies family history of Rheumatoid arthritis Diabetes Lupus Clotting disorder Hyperlipidemia Chronic kidney disease (CKD) Suicide Anesthesia complication Bleeding disorder Social History Smoking and tobacco/nicotine status: former use of tobacco/nicotine Quit status (tobacco/nicotine): has quit using Year quit tobacco: 1976 [id number] Second hand smoke exposure: Yes Alcohol intake: never Substance/Drug Use: never Lives independently: Yes Current occupational status: retired Pets and animals: Yes Do you think of yourself as: Straight/Heterosexual Current gender identity: Male Physical Exam Const: COMMON NORMALS: no acute distress, patient oriented x3 and healthy appearing HENMT: COMMON NORMALS: normocephalic and atraumatic HEAD & SCALP: normocephalic and atraumatic Eye: COMMON NORMALS: Equal, round and reactive pupils present and EOMs intact bilaterally PUPIL: Yes Equal, round and reactive pupils present Neck/C-Spine: COMMON NORMALS: full ROM and supple Chest: COMMONS NORMALS: normal inspection of the chest and normal palpation of entire chest wall Resp: COMMON NORMALS: normal respiratory effort, No retractions, No use of accessory muscles and clear to auscultation bilaterally AUSCULTATION: clear to auscultation bilaterally Cardio: COMMON NORMALS: regular rate, regular rhythm and No murmurs present (Cardio) RATE: regular rate RHYTHM: regular rhythm GI: COMMON NORMALS: Normal to inspection, nondistended, normoactive bowel sounds present, Soft to palpation, non-tender and no masses PALPATION: Yes Soft to palpation Extremity: COMMON NORMALS: normal to inspection and full ROM Neuro: COMMON NORMALS: patient oriented x3, moves all extremities and no focal motor deficits Psych: COMMON NORMALS: mental status grossly normal, Normal thought process present and cooperative THOUGHT PROCESS: Normal thought process present Skin: COMMON NORMALS: no rashes or lesions noted and no wounds GENERAL SKIN EXAM: no rashes or lesions noted Course Vital Signs: Vital signs: Vital Signs Temperature 97.8 F 05/14/25 15:35 Pulse Rate 66 05/14/25 17:32 Respiratory Rate 16 05/14/25 17:32 Blood Pressure 112/68 05/14/25 17:32 Pulse Oximetry 94 05/14/25 17:32 Oxygen Delivery Me thod Room Air 05/14/25 15:35 MDM - Fall Medical Decision Making Patient presents here after a fall has been well-appearing here imaging is normal blood work is normal he is stable for discharge follow-up with PCP return if worsening. Medical Records I reviewed the patient's medical records. Lab Data I reviewed the patient's lab results. 05/14/25 16:33 05/14/25 16:33 Radiology Impressions Elbow X-Ray 05/14/25 15:38 IMPRESSION: No acute osseous findings. CT could be considered for further evaluation if there is clinical concern. Knee X-Ray 05/14/25 15:54 IMPRESSION: No acute osseous findings. Lumbar Spine X-Ray 05/14/25 15:54 IMPRESSION: 1. No acute findings. 2. Stable thoracolumbar and lumbosacral fusion hardware. 3. Multilevel lumbar spondylosis with dextroscoliosis. Laboratory Results WBC 4.65 10^3/uL (3.29-11.43) 05/14/25 16:33 RBC 4.65 10^6/uL (3.85-5.65) 05/14/25 16:33 Hgb 14.10 g/dL (11.27-16.99) 05/14/25 16:33 Hct 43.9 % (37-53) 05/14/25 16:33 MCV 94.4 fl (82-101) 05/14/25 16:33 MCH 30.3 pg (27-33) 05/14/25 16: MCHC 32.1 g/dL (30-55) 05/14/25 16: RDW 16.9 % (12.1-15.1) H 05/14/25 16:33 Plt Count 152 10^3/cmm (157-399) L 05/14/25 16:33 MPV 10.2 fL (7.4-10.4) 05/14/25 16:33 Neut % (Auto) 50.9 % 05/14/25 16:33 Lymph % (Auto) 27.1 % 05/14/25 16:33 [place] % (Auto) 11.0 % 05/14/25 16:33 Eos % (Auto) 9.7 % 05/14/25 16:33 Baso % (Auto) 1.1 % 05/14/25 16:33 Neut # (Auto) 2.37 10^3/uL (1.8-7.7) 05/14/25 16:33 Lymph # (Auto) 1.3 10^3/uL (0.8-4.8) 05/14/25 16:33 [place] # (Auto) 0.5 10^3/uL (0.2-0.9) 05/14/25 16:33 Eos # (Auto) 0.5 10^3/uL (0.0-0.8) 05/14/25 16:33 Baso # (Auto) 0.1 10^3/uL (0.0-0.1) 05/14/25 16:33 Nucleated RBC % (auto) 0 % 05/14/25 16:33 Nucleated RBCs # 0.0 /100WBC 05/14/25 16:33 Sodium 140 mmol/L (136-145) 05/14/25 16:33 Potassium 4.0 mmol/L (3.5-5.1) 05/14/25 16:33 Chloride 103 mmol/L (98-107) 05/14/25 16:33 Carbon Dioxide 24 mmol/L (22-29) 05/14/25 16:33 Anion Gap 17.0 (5-19) 05/14/25 16:33 BUN 14 mg/dL (8-23) 05/14/25 16:33 Creatinine 1.0 mg/dL (0.7-1.2) 05/14/25 16:33 GFR Calculation 73.9 mL/min (90-130) L 05/14/25 16:33 Glucose 103 mg/dL (65-115) 05/14/25 16:33 Calculated Osmolality 291 mOsm/kg (285-295) 05/14/25 16:33 Calcium 9.7 mg/dL (8.5-10.5) 05/14/25 16:33 Total Bilirubin 0.6 mg/dL (0.15-1.2) 05/14/25 16:33 AST 18 U/L (0-40) 05/14/25 16:33 ALT 10 U/L (0-41) 05/14/25 16:33 Alkaline Phosphatase 82 U/L (40-130) 05/14/25 16:33 Total Protein 6.9 g/dL (6.6-8.7) 05/14/25 16:33 Albumin 3.7 g/dL (3.5-5.2) 05/14/25 16:33 Globulin 3.2 g/dL (1.3-4.6) 05/14/25 16:33 All radiology interpretation(s) finalized by discharge Discharge Plan Discharge Patient Disposition: Home Clinical Impression: Fall Condition: Stable Prescriptions: No Action saw palmetto 500 mg capsule 500 mg PO DAILY vancomycin 125 mg capsule 125 mg PO DAILY testosterone 20.25 mg/1.25 gram (1.62 %) gel in metered-dose pump 3 pump topical DAILY clobetasol 0.05 % cream 1 applic TOPICAL BID PRN (Reason: hands) pantoprazole [Protonix] 40 mg tablet,delayed release (DR/EC) 40 mg PO QAM Qty: 60 0RF sucralfate 1 gram tablet 1 g PO BID midodrine 5 mg tablet See Rx Instructions .ROUTE .COMPLEX Rx Instructions: TAKE 1 TABLET BY MOUTH THREE TIMES DAILY. HOLD FOR SBP MORE THAN 120 MMHG. allopurinol 300 mg tablet 300 mg PO DAILY metoprolol tartrate 25 mg tablet 25 mg PO Q12H Fruzaqla 5 mg capsule See Rx Instructions .ROUTE .COMPLEX Rx Instructions: Take 1 capsule by mouth daily for 3 weeks, then off 1 week. gabapentin 300 mg capsule 300 mg PO TID digoxin 125 mcg (0.125 mg) tablet 0.125 mg PO DAILY epinephrine 0.3 mg/0.3 mL auto-injector See Rx Instructions .ROUTE .COMPLEX Rx Instructions: INJECT CONTENTS OF 1 PEN NEEDED FOR ALLERGIC REACTION albuterol sulfate 90 mcg/actuation HFA aerosol inhaler 2 puff INHALATION Q4H PRN (Reason: Shortness Of Breath) oxycodone 10 mg tablet 10 mg PO Q6H PRN (Reason: Pain) atorvastatin 40 mg Tablet 40 mg PO BEDTIME Qty: 30 0RF aspirin 81 mg Tablet,Delayed Release (Dr/Ec) 81 mg PO DAILY Qty: 30 0RF divalproex [Depakote] 500 mg tablet,delayed release (DR/EC) 500 mg PO TID Qty: 30 0RF amiodarone 200 mg tablet 200 mg PO DAILY Qty: 30 0RF trazodone 150 mg tablet 150 mg PO BEDTIME Qty: 30 0RF Discharge Orders: Discharge ED (Routine); Ordered 05/14/25 Ordered By: Donato Chance Referrals: Al Álvarez MD [Primary Care Provider, Family Practice] Discharge Diet: Advance as tolerated Discharge Activity: Resume usual activity Patient Instructions: Fall Prevention (ED) Print Language: Khmer Coding Level of Care Code ED Human Service Worker for Scarlett San
--- NOTE | 2025-05-14 15:57 | ECG_ITS ---
[facility] Date: 2025-05-14 Pat Name: Charan Voss Department: Room: Gender: Male Oenologist: : 1955 Requested By: Donato Chance Order Number: [id number] Richard MD: Asad Carpenter M.D. Measurements Intervals [place] Rate: 62 P: 0 GA: 0 QRS: 91 QRSD: 109 T: 1 QT: 458 QTc: 467 Interpretive Statements ATRIAL FIBRILLATION BORDERLINE RIGHT AXIS DEVIATION [QRS AXIS > 90] ANTEROSEPTAL MYOCARDIAL INFARCTION , OF INDETERMINATE AGE [40+ ms Q WAVE IN V1-V4] Compared to ECG 05/05/2025 12:13:02 Left bundle-branch block no longer present Electronically Signed On 05-15-2025 20:56:23 CDT by Asad Carpenter M.D. [email or web address]
--- OUTSIDE RECORDS SUMMARY | 2025-05-14 15:58 | XMS_ITS | Encounter Summary ---
Author Organization [employer] Address [address] [place] [address] Care Team Providers Care Computer Programmer Chief Name Role Phone Favian Maldonado MD, Shant Humphreys Primary Care Provider Encounter Details Date Type Department Care Team (Late st Contact Info) Description 12/02/2022 Lab Requisition [facility] Laboratory Services [address] [place] [address] [place] [address] Joelle David MD [address] [facility] [address] [place] [id number] Social History Tobacco Use Types Packs/Day Years Used Date Smoking Tobacco: Never Assessed Sex and Gender Information Value Date Recorded Sex Assigned at Not on file Legal 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 FRONT DESK TEAM MEMBER Gender Identity Not on file Sexual Orientation Not on file documented as of this encounter Plan of Treatment Not on file documented as of this encounter Procedures Procedure Name Priority Date/Time Associated Diagnosis Comments C-REACTIVE PROTEIN Routine 12/02/2022 3: 50 AM FRONT DESK TEAM MEMBER documented in this encounter Results * (ABNORMAL) C-REACTIVE PROTEIN (12/02/2022 3:50 AM FRONT DESK TEAM MEMBER) CRP 19.3(H) 0.0 - 5.0 mg/L 12/02/2022 5:27 AM FRONT DESK TEAM MEMBER [facility] Blood Collection / Unknown 12/02/2022 3:50 AM FRONT DESK TEAM MEMBER 12/02/2022 5:13 AM FRONT DESK TEAM MEMBER Joelle David MD CHEMISTRY ORDERABLES Final Resu lt [facility] # [id number] [address] [facility] [place] [address] documented in this encounter Visit Diagnoses Not on filedocumented in this encounter Additional Health Concerns Infection Onset Date Last Indicated Resolved Time C Diff 11/17/2022 11/17/2022 01/16/2023 1:16 AM CDT documented as of this encounter Care Teams Computer Programmer Chief Relationship Specialty Start Date End Date Shant Ballesteros Jr., MD [address] [place] [address] PCP - General Family Practice 01/19/14 documented as of this encounter
--- OUTSIDE RECORDS SUMMARY | 2025-05-14 15:58 | XMS_ITS | Encounter Summary ---
Author Organization [employer] [facility] Address [address] [place] [address] Care Team Providers Care Waste Handling Technician Name Role Phone Favian Maldonado MD, Shant Humphreys Primary Care Provider Encounter Details Date Type Department Care Team (Late st Contact Info) Description 12/19/2022 Lab Requisition [facility] Laboratory Services [address] [place] [address] [place] [address] Esther Sarmiento MD [address] [place] [address] Social History Tobacco Use Types Packs/Day Years Used Date Smoking Tobacco: Never Assessed Sex and Gender Information Value Date Recorded Sex Assigned at Not on file Legal 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 PRINCIPAL ARCHITECTURAL FIRM Gender Identity Not on file Sexual Orientation [...] Sarmiento MD HEMATOLOGY ORDERABLES Final Resu lt [facility] # [id number] [address] [facility] [place] [address] * (ABNORMAL) COMPREHENSIVE METABOLIC PANEL (12/19/2022 4:50 AM CDT) SODIUM 135(L) 136 - 145 mmol/L 12/19/2022 10:48 AM CDT [facility] POTASSIUM 5.3(H) 3.5 - 5.1 mmol/L 12/19/2022 10:48 AM CDT [facility] CHLORIDE 99 98 - 107 mmol/L 12/19/2022 10:48 AM CDT [facility] CO2 25 22 - 29 mmol/L 12/19/2022 10:48 AM CDT [facility] CALCIUM 10.4(H) 8.8 - 10.2 mg/dL 12/19/2022 10:48 AM CDT [facility] BUN 44(H) 8 - 23 mg/dL 12/19/2022 10:48 AM CDT [facility] CREATININE 1.13 0.67 - 1.17 mg/dL 12/19/2022 10:48 AM CDT [facility] GLUCOSE 116(H) 74 - 99 mg/dL 12/19/2022 10:48 AM T [facility] TOTAL PROTEIN 7.5 6.4 - 8.3 g/dL 12/19/2022 10:48 AM CDT [facility] ALBUMIN 3.8 3.5 - 5.2 g/dL 12/19/2022 10:48 AM CDT [facility] BILIRUBIN TOTAL <0.2(L) 0.2 - 1.0 mg/dL 12/19/2022 10:48 AM CDT [facility] ALKALINE PHOSPHATASE 111 40 - 129 U/L 12/19/2022 10:48 AM CDT [facility] AST 27 10 - 50 U/L 12/19/2022 10:48 AM CDT [facility] ALT 38 <=50 U/L 12/19/2022 10:48 AM CDT [facility] GFR >60 >=60 mL/min/1. 73 sq meter 12/19/2022 10:48 AM CDT [facility] Comment:eGFR calculated with 2020 CKD-EPI equation. Vegetarian diet, extremely high or low muscle mass, and may affect results. Cystatin C with Glomerular Filtration Rate is a suitable alternative for these patients. ANION GAP 11 9 - 20 mmol/L 12/19/2022 10:48 AM CDT [facility] Blood Collection / Unknown 12/19/2022 4:50 AM CDT 12/19/2022 10:29 AM CDT Esther Sarmiento MD CHEMISTRY ORDERABLES Final Resul t [facility] CLIA # [id number] [address] [place] [address] documented in this encounter Visit Diagnoses Not on filedocumented in this encounter Additional Health Concerns Infection Onset Date Last Indicated Resolved Time C Diff 11/17/2022 11/17/2022 01/16/2023 1:16 AM CDT documented as of this encounter Care Teams Waste Handling Technician Relationship Specialty Start Date End Date Shant Ballesteros Jr., MD [address] [place] [address] PCP - General Family Practice 01/19/14 documented as of this encounter
--- OUTSIDE RECORDS SUMMARY | 2025-05-14 15:58 | XMS_ITS | Encounter Summary ---
Author Organization [facility] Address [address] [place] [address] Care Team Providers Care Roll Up Guider Operator Name Role Phone Favian Maldonado MD, Shant Humphreys Primary Care Provider Encounter Details Date Type Department Care Team (Late st Contact Info) Description 11/29/2022 Lab Requisition [facility] Laboratory Services [address] [place] [address] [place] [address] Andre Mary, MADHU [address] [facility] [address] [place] [address] Social History Tobacco Use Types Packs/Day Years Used Date Smoking Tobacco: Never Assessed Sex and Gender Information Value Date Recorded Sex Assigned at Not on file Legal 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 TRACE CLERK Gender Identity Not on file Sexual Orientation Not on file documented as of this encounter Plan of Treatment Not on file documented as of this encounter Procedures Procedure Name Priority Date/Time Associated Diagnosis Comments CBC WITH DIFFERENTIAL Routine 11/29/2022 4:15 AM TRACE CLERK documented in this encounter Results * (ABNORMAL) CBC WITH DIFFERENTIAL (11/29/2022 4:15 AM TRACE CLERK) WBC 6.6 4.8 - 10.8 K/uL 11/29/2022 7:02 AM TRACE CLERK [facility] RBC 2.98(L) 4.60 - 6.20 M/uL 11/29/2022 7:02 AM TRACE CLERK [facility] HEMOGLOBIN 9.0(L) 14.0 - 18.0 g/dL 11/29/2022 7:02 AM [facility] HEMATOCRIT 29.9(L) 41.0 - 53.0 % 11/29/2022 7:02 AM [facility] MCV 100.3 84.0 - 103.0 fL 11/29/2022 7:02 AM [facility] MCH 30.2 27.0 - 34.0 pg 11/29/2022 7:02 AM [facility] MCHC 30.1 30.0 - 35.0 g/dL 11/29/2022 7:02 AM [facility] RDW 18.0(H) 11.0 - 14.5 % 11/29/2022 7:02 AM [facility] RDW-STDEV 65.1(H) 37.0 - 54.0 fL 11/29/2022 7:02 AM [facility] PLATELETS 226 140 - 440 K/uL 11/29/2022 7:02 AM [facility] MPV 10.5 8.9 - 12.8 fL 11/29/2022 7:02 AM [facility] NEUTROPHILS 67 42 - 75 % 11/29/2022 7:02 AM [facility] LYMPHOCYTES 13(L) 24 - 44 % 11/29/2022 7:02 AM [facility] MONOCYTES 13(H) 2 - 10 % 11/29/2022 7:02 AM [facility] EOSINOPHILS 6 0 - 7 % 11/29/2022 7:02 AM [facility] BASOPHILS 1 0 - 1 % 11/29/2022 7:02 AM [facility] IMMATURE GRANULOCYTES 1 0 - 2 % 11/29/2022 7:02 AM [facility] NEUTROPHIL ABSOLUTE 4.47 2.00 - 8.00 K/uL 11/29/2022 7:02 AM [facility] LYMPHOCYTE ABSOLUTE 0.88(L) 1.20 - 4.00 K/uL 11/29/2022 7:02 AM [facility] MONOCYTE ABSOLUTE 0.85(H) 0.10 - 0.60 K/uL 11/29/2022 7:02 AM TRACE CLERK [facility] EOSINOPHIL ABSOLUTE 0.37 0.00 - 0.70 K/uL 11/29/2022 7:02 AM [facility] BASOPHILS ABSOLUTE 0.04 0.00 - 0.20 K/uL 11/29/2022 7:02 AM [facility] IMMATURE GRANULOCYTES ABSOLUTE 0.03 0.00 - 0.10 K/uL 11/29/2022 7:02 AM [facility] Blood Collection / Unknown 11/29/2022 4:15 AM TRACE CLERK 11/29/2022 6:48 AM TRACE CLERK us Andre Mary FIBERGLASS DOWEL DRAWING OPERATOR HEMATOLOGY ORDERABLES Fi nal Result [facility] CLIA # [id number] [address] [place] [address] documented in this encounter Visit Diagnoses Not on filedocumented in this encounter Additional Health Concerns Infection Onset Date Last Indicated Resolved Time C Diff 11/17/2022 11/17/2022 01/16/2023 1:16 AM CDT documented as of this encounter Care Teams Roll Up Guider Operator Relationship Specialty Start Date End Date Shant Ballesteros Jr., MD [address] [place] [address] PCP - General Family Practice 01/19/14 documented as of this encounter
--- OUTSIDE RECORDS SUMMARY | 2025-05-14 15:58 | XMS_ITS | Encounter Summary ---
Author Organization [employer] Address 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 Gender Identity Not on file [...] - 4.5 mg/dL 12/09/2022 6:34 AM CDT [facility] xaitment [facility] Blood Collection / Unknown 12/09/2022 4:20 AM CDT 12/09/2022 6:15 AM CDT Esther Sarmiento MD CHEMISTRY ORDERABLES Final Resul t Performing Organization Address [facility] Co de Phone Number [facility] CLIA # [id number] [address] [address] * MAGNESIUM LEVEL (12/09/2022 4:20 AM CDT) MAGNESIUM 2.0 1.6 - 2.4 mg/dL 12/09/2022 6:34 AM CDT [facility] xaitment [facility] Blood Collection / Unknown 12/09/2022 4:20 AM CDT 12/09/2022 6:15 AM CDT Esther Sarmiento MD CHEMISTRY ORDERABLES Final Resul t Performing Organization Address [facility] Co de Phone Number [facility] xaitment [facility] CLIA # [id number] [address] [address] * (ABNORMAL) COMPREHENSIVE METABOLIC PANEL (12/09/2022 4:20 AM CDT) SODIUM 136 136 - 145 mmol/L 12/09/2022 6:34 AM CDT [facility] xaitment [facility] POTASSIUM 4.2 3.5 - 5.1 mmol/L 12/09/2022 6:34 AM CDT [facility] xaitment [facility] CHLORIDE 103 98 - 107 mmol/L 12/09/2022 6:34 AM CDT [facility] CO2 27 22 - 29 mmol/L 12/09/2022 6:34 AM CDT [facility] xaitment [facility] CALCIUM 9.8 8.8 - 10.2 mg/dL 12/09/2022 6:34 AM CDT [facility] xaitment [facility] BUN 34(H) 8 - 23 mg/dL 12/09/2022 6:34 AM CDT [facility] CREATININE 0.89 0.67 - 1.17 mg/dL 12/09/2022 6:34 AM T [facility] GLUCOSE 136(H) 74 - 99 mg/dL 12/09/2022 6:34 AM T [facility] TOTAL PROTEIN 7.2 6.4 - 8.3 g/dL 12/09/2022 6:34 AM [facility] ALBUMIN 3.4(L) 3.5 - 5.2 g/dL 12/09/2022 6:34 AM T [facility] BILIRUBIN TOTAL 0.2 0.2 - 1.0 mg/dL 12/09/2022 6:34 AM [facility] ALKALINE PHOSPHATASE 116 40 - 129 U/L 12/09/2022 6:34 AM [facility] AST 16 10 - 50 U/L 12/09/2022 6:34 AM [facility] ALT 17 <=50 U/L 12/09/2022 6:34 AM [facility] GFR >60 >=60 mL/min/1.7 3 sq meter 12/09/2022 6:34 AM [facility] Comment:eGFR calculated with 2020 CKD-EPI equation. Vegetarian diet, extremely high or low muscle mass, and may affect results. Cystatin C with Glomerular Filtration Rate is a suitable alternative for these patients. ANION GAP 6(L) 9 - 20 mmol/L 12/09/2022 6:34 AM [facility] Blood Collection / Unknown 12/09/2022 4:20 AM CDT 12/09/2022 6:15 AM CDT us Esther Sarmiento MD CHEMISTRY ORDERABLES Final Resul t [facility] CLIA # [id number] [address] [address] documented in this encounter Visit Diagnoses Not on filedocumented in this encounter Additional Health Concerns Infection Onset Date Last Indicated Resolved Time C Diff 11/17/2022 11/17/2022 01/16/2023 1:16 AM CDT documented as of this encounter Care Teams Swatch Cutter Relationship Specialty Start Date End Date Shant Ballesteros Jr., MD [address] [place] [address] PCP - General Family Practice 01/19/14 documented as of this encounter
--- OUTSIDE RECORDS SUMMARY | 2025-05-14 15:58 | XMS_ITS | Encounter Summary ---
Author Organization [employer] Address 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
--- OUTSIDE RECORDS SUMMARY | 2025-05-14 15:58 | XMS_ITS | Encounter Summary ---
Author Organization [facility] Address 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 Gender Identity Not on file Sexual Orientation Not on file documented as of this encounter Plan of Treatment Not on file documented as of this encounter Procedures Procedure Name Priority Date/Time Associated Diagnosis Comments PHOSPHORUS Routine 12/05/2022 3:30 AM ANNEALING FURNACE OPERATOR MAGNESIUM LEVEL Routine 12/05/2022 3:30 AM ANNEALING FURNACE OPERATOR documented in this encounter Results * MAGNESIUM LEVEL (12/05/2022 3:30 AM ANNEALING FURNACE OPERATOR) MAGNESIUM 12/05/2022 7:00 AM ANNEALING FURNACE OPERATOR [facility] Comment: Contaminated specimen, called to [facility] Garcia This is a corrected result. Previous result was 1.7 mg/dL on 12/05/2022 at 0553 ANNEALING FURNACE OPERATOR Blood Collection / Unknown 12/05/2022 3:30 AM ANNEALING FURNACE OPERATOR 12/05/2022 5:21 AM ANNEALING FURNACE OPERATOR Narrative [facility] - 12/05/2022 7:00 AM ANNEALING FURNACE OPERATOR To be credited Contaminated specimen Low Finley Monique DO CHEMISTRY ORDERABLES Edited Result - Final Performing Organization Address City/[facility]/ZIP Co de Phone Number [facility] CLIA # [id number] [address] [facility] [place] [address] * PHOSPHORUS (12/05/2022 3:30 AM ANNEALING FURNACE OPERATOR) PHOSPHORUS 12/05/2022 7:02 AM ANNEALING FURNACE OPERATOR [facility] Comment: Contaminated specimen. To be credited, called to Humble Garcia This is a corrected result. Previous result was 4.6 mg/dL on 12/05/2022 at 0553 [facility] Blood Collection / Unknown 12/05/2022 3:30 AM ANNEALING FURNACE OPERATOR 12/05/2022 5:21 AM ANNEALING FURNACE OPERATOR Low Finley Monique DO CHEMISTRY ORDERABLES Edited Result - Final Performing Organization Address [facility] Co de Phone Number [facility] CLIA # [id number] [id number] [place] [address] documented in this encounter Visit Diagnoses Not on filedocumented in this encounter Additional Health Concerns Infection Onset Date Last Indicated Resolved Time C Diff 11/17/2022 11/17/2022 01/16/2023 1:16 AM CDT documented as of this encounter Care Teams Shellfish Processing Laborer Relationship Specialty Start Date End Date Shant Ballesteros Jr., MD [address] [place] [address] PCP - General Family Practice 01/19/14 documented as of this encounter
--- OUTSIDE RECORDS SUMMARY | 2025-05-14 15:58 | XMS_ITS | Encounter Summary ---
Author Organization [employer] Address 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 SHADOWGRAPH 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 Gender Identity Not on file Sexual Orientation Not on file documented as of this encounter Plan of Treatment Not on file documented as of this encounter Procedures Procedure Name Priority Date/Time Associated Diagnosis Comments PHOSPHORUS Routine 11/30/2022 4:55 AM SHADOWGRAPH OPERATOR MAGNESIUM LEVEL Routine 11/30/2022 4:55 AM SHADOWGRAPH OPERATOR BASIC METABOLIC PANEL Routine 11/30/2022 4:55 AM SHADOWGRAPH OPERATOR documented in this encounter Results * MAGNESIUM LEVEL (11/30/2022 4:55 AM SHADOWGRAPH OPERATOR) MAGNESIUM 2.0 1.6 - 2.4 mg/dL 11/30/2022 8:00 AM SHADOWGRAPH OPERATOR [facility] Blood Collection / Unknown 11/30/2022 4:55 AM SHADOWGRAPH OPERATOR 11/30/2022 6:21 AM SHADOWGRAPH OPERATOR Low Amaya DO CHEMISTRY ORDERABLES Final R esult Performing Organization Address [facility]/ZIP Co de Phone Number [facility] CLIA # [id number] [address] [address] * PHOSPHORUS (11/30/2022 4:55 AM SHADOWGRAPH OPERATOR) PHOSPHORUS 3.6 2.5 - 4.5 mg/dL 11/30/2022 6:35 AM [facility] Blood Collection / Unknown 11/30/2022 4:55 AM SHADOWGRAPH OPERATOR 11/30/2022 6:21 AM SHADOWGRAPH OPERATOR Low Amaya DO CHEMISTRY ORDERABLES Final R esult Performing Organization Address [facility]/ZIP Co de Phone Number [facility] CLIA # [id number] [address] [address] * (ABNORMAL) BASIC METABOLIC PANEL (11/30/2022 4:55 AM SHADOWGRAPH OPERATOR) SODIUM 140 136 - 145 mmol/L 11/30/2022 6:35 AM [facility] POTASSIUM 4.1 3.5 - 5.1 mmol/L 11/30/2022 6:35 AM [facility] CHLORIDE 101 98 - 107 mmol/L 11/30/2022 6:35 AM [facility] CO2 34(H) 22 - 29 mmol/L 11/30/2022 6:35 AM [facility] CALCIUM 9.8 8.8 - 10.2 mg/dL 11/30/2022 6:35 AM [facility] BUN 31(H) 8 - 23 mg/dL 11/30/2022 6:35 AM [facility] CREATININE 0.99 0.67 - 1.17 mg/dL 11/30/2022 6:35 AM [facility] GLUCOSE 129(H) 74 - 99 mg/dL 11/30/2022 6:35 AM [facility] GFR >60 >=60 mL/min/1.7 3 sq meter 11/30/2022 6:35 AM [facility] Comment:eGFR calculated with 2020 CKD-EPI equation. Vegetarian diet, extremely high or low muscle mass, and may affect results. Cystatin C with Glomerular Filtration Rate is a suitable alternative for these patients. ANION GAP 5(L) 9 - 20 mmol/L 11/30/2022 6:35 AM [facility] Blood Collection / Unknown 11/30/2022 4:55 AM SHADOWGRAPH OPERATOR 11/30/2022 6:21 AM SHADOWGRAPH OPERATOR Low Amaya DO CHEMISTRY ORDERABLES Final R esult [facility] CLIA # [id number] [address] [place] [address] documented in this encounter Visit Diagnoses Not on filedocumented in this encounter Additional Health Concerns Infection Onset Date Last Indicated Resolved Time C Diff 11/17/2022 11/17/2022 01/16/2023 1:16 AM CDT documented as of this encounter Care Teams Barber Shop Operator Relationship Specialty Start Date End Date Shant Ballesteros Jr., MD [address] [place] [address] PCP - General Family Practice 01/19/14 documented as of this encounter
--- OUTSIDE RECORDS SUMMARY | 2025-05-14 15:58 | XMS_ITS | Encounter Summary ---
Author Organization [employer] Address 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 Gender Identity Not on file Sexual Orientation Not on file documented as of this encounter Plan of Treatment Not on file documented as of this encounter Procedures Procedure Name Priority Date/Time Associated Diagnosis Comments PHOSPHORUS Routine 12/07/2022 3:30 AM BRICKMASON HELPER MAGNESIUM LEVEL Routine 12/07/2022 3:30 AM BRICKMASON HELPER BASIC METABOLIC PANEL Routine 12/07/2022 3:30 AM BRICKMASON HELPER documented in this encounter Results * (ABNORMAL) PHOSPHORUS (12/07/2022 3:30 AM BRICKMASON HELPER) PHOSPHORUS 4.7(H) 2.5 - 4.5 mg/dL 12/07/2022 5:41 AM BRICKMASON HELPER [facility] LABORATORY [facility] Blood Collection / Unknown 12/07/2022 3:30 AM BRICKMASON HELPER 12/07/2022 5:10 AM BRICKMASON HELPER Low Monique DO CHEMISTRY ORDERABLES Final R esult Performing Organization Address City/[facility]/ZIP Co de Phone Number [facility] CLIA # [id number] [address] [place] [address] * MAGNESIUM LEVEL (12/07/2022 3:30 AM BRICKMASON HELPER) MAGNESIUM 1.9 1.6 - 2.4 mg/dL 12/07/2022 5:[address] [facility] Blood Collection / Unknown 12/07/2022 3:30 AM BRICKMASON HELPER 12/07/2022 5:10 AM BRICKMASON HELPER Low Amaya DO CHEMISTRY ORDERABLES Final R esult Performing Organization Address City/[facility]/ZIP Co de Phone Number [facility] CLIA # [id number] [address] [place] [address] * (ABNORMAL) BASIC METABOLIC PANEL (12/07/2022 3:30 AM BRICKMASON HELPER) SODIUM 137 136 - 145 mmol/L 12/07/2022 5:41 AM [facility] [employer] [facility] POTASSIUM 4.2 3.5 - 5.1 mmol/L 12/07/2022 5:41 AM [facility] [employer] [facility] CHLORIDE 103 98 - 107 mmol/L 12/07/2022 5:41 AM [facility] [employer] [facility] CO2 26 22 - 29 mmol/L 12/07/2022 5:[address] [facility] CALCIUM 9.5 8.8 - 10.2 mg/dL 12/07/2022 5:41 AM [facility] [employer] [facility] BUN 36(H) 8 - 23 mg/dL 12/07/2022 5:[address] [facility] CREATININE 0.95 0.67 - 1.17 mg/dL 12/07/2022 5:[address] [facility] GLUCOSE 102(H) 74 - 99 mg/dL 12/07/2022 5:[address] [facility] GFR >60 >=60 mL/min/1.7 3 sq meter 12/07/2022 5:[address] [facility] Comment:eGFR calculated with 2020 CKD-EPI equation. Vegetarian diet, extremely high or low muscle mass, and may affect results. Cystatin C with Glomerular Filtration Rate is a suitable alternative for these patients. ANION GAP 8(L) 9 - 20 mmol/L 12/07/2022 5:[address] [facility] Blood Collection / Unknown 12/07/2022 3:30 AM BRICKMASON HELPER 12/07/2022 5:10 AM BRICKMASON HELPER Low Amaya DO CHEMISTRY ORDERABLES Final R esult [facility] CLIA # [id number] [address] [place] [address] documented in this encounter Visit Diagnoses Not on filedocumented in this encounter Additional Health Concerns Infection Onset Date Last Indicated Resolved Time C Diff 11/17/2022 11/17/2022 01/16/2023 1:16 AM CDT documented as of this encounter Care Teams Intensivist Relationship Specialty Start Date End Date Shant Ballesteros Jr., MD [address] [place] [address] PCP - General Family Practice 01/19/14 documented as of this encounter
--- OUTSIDE RECORDS SUMMARY | 2025-05-14 15:58 | XMS_ITS | Encounter Summary ---
Author Organization [facility] Address [address] [place] [address] Care Team Providers Care Jigger Machine Operator Name Role Phone Favian Maldonado MD, Shant Humphreys Primary Care Provider Reason for Referral * Outpatient Services (Routine) - Closed Specialty Diagnoses / Procedures Referred By Delfin jerome Referred To Contact Diagnoses Other nonspecific findings on examination of blood(790.99) Procedures MRI BRAIN W WO CONTRAST Shant Ballesteros Jr., MD [address] [place] [address] Phone: tel: fax: [facility] [place] CALL TO MAKE APPOINTMENT ONLY [address] [place] [address] Phone: tel: fax: Referral ID Status Reason Start Date Expiration Date V isits Requested Visits Authorized [id number] Closed F [facility] TO SCHEDULE ([facility]) 01/18/2014 02/18/2015 1 1 * Outpatient Services (Routine) - Closed Specialty Diagnoses / Procedures Referred By Delfin t Referred To Contact Diagnoses Other nonspecific findings on examination of blood(790.99) Procedures MRA VENOUS HEAD WO CONTRAST Shant Ballesteros Jr., MD [address] [place] [address] Phone: tel: fax: [employer] Pre-Registration [place] CALL TO MAKE APPOINTMENT ONLY [address] [place] [address] Phone: tel: fax: Referral ID Status Reason Start Date Expiration Date V isits Requested Visits Authorized [id number] Closed F [facility] TO SCHEDULE ([facility]) 01/18/2014 02/18/2015 1 1 Encounter Details Date Type Department Care Team (Late st Contact Info) Description 01/18/2014 Ancillary Orders [facility] Pre-Registration [place] CALL TO MAKE APPOINTMENT ONLY [address] [facility] [place] [address] Shant Ballesteros Jr., MD [address] [place] [address] Other nonspecific findings on examination [...] No significant abnormality. Tripp - uploaded from [employer]- Narrative Procedure Note Philippe Mendiola MD - [...] No significant abnormality. Tripp - uploaded from [employer]- us Shant Ballesteros Jr., MD MR ORDERABLES [...] Impression: Unremarkable exam. CHRIS/nikki - uploaded from [employer] - Narrative Procedure Note Philippe Mendiola MD [...] Impression: Unremarkable exam. MWKleber/nikki - uploaded from [employer] - us Shant Ballesteros Jr., MD MR [...] blood documented in this encounter Care Teams Jigger Machine Operator Relationship Specialty Start Date End Date Shant Ballesteros Jr., MD [address] [place] [address] PCP - General Family Practice 01/19/14 documented as of this encounter
--- OUTSIDE RECORDS SUMMARY | 2025-05-14 15:58 | XMS_ITS | Encounter Summary ---
Author Organization [facility] Address [address] [place] [address] Care Team Providers Care Gun Sealing Machine Operator Name Role Phone Favian Maldonado MD, Shant Humphreys Primary Care Provider Encounter Details Date Type Department Care Team (Late st Contact Info) Description 12/12/2022 Lab Requisition [facility] Laboratory Services [address] [place] [address] [place] [address] Low Amaya, DO [address] [place] [address] Social History Tobacco Use Types Packs/Day Years Used Date Smoking Tobacco: Never Assessed Sex and Gender Information Value Date Recorded Sex Assigned at Not on file Legal 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 RECRUITMENT DIRECTOR Gender Identity Not on file Sexual [...] - 4.5 mg/dL 12/12/2022 5:57 AM CDT [facility] Blood Collection / Unknown 12/12/2022 3:15 AM CDT 12/12/2022 5:23 AM CDT Low L Monique DO CHEMISTRY ORDERABLES Final R esult Performing Organization Address [facility] de Phone Number [facility] CLIA # [id number] [address] [place] [address] * MAGNESIUM LEVEL (12/12/2022 3:15 AM CDT) MAGNESIUM 1.9 1.6 - 2.4 mg/dL 12/12/2022 5:57 AM CDT [facility] Blood Collection / Unknown 12/12/2022 3:15 AM CDT 12/12/2022 5:23 AM CDT Low Amaya CHEMISTRY ORDERABLES Final R esult Performing Organization Address [facility] de Phone Number [facility] CLIA # [id number] [address] [place] [address] * (ABNORMAL) BASIC METABOLIC PANEL (12/12/2022 3:15 AM CDT) SODIUM 135(L) 136 - 145 mmol/L 12/12/2022 5:57 AM CDT [facility] POTASSIUM 4.7 3.5 - 5.1 mmol/L 12/12/2022 5:57 AM CDT [facility] CHLORIDE 101 98 - 107 mmol/L 12/12/2022 5:57 AM CDT [facility] CO2 24 22 - 29 mmol/L 12/12/2022 5:57 AM CDT [facility] CALCIUM 10.0 8.8 - 10.2 mg/dL 12/12/2022 5:57 AM CDT [facility] BUN 42(H) 8 - 23 mg/dL 12/12/2022 5:57 AM CDT [facility] CREATININE 1.00 0.67 - 1.17 mg/dL 12/12/2022 5:57 AM CDT [facility] GLUCOSE 133(H) 74 - 99 mg/dL 12/12/2022 5:57 AM CDT [facility] GFR >60 >=60 mL/min/1.7 3 sq meter 12/12/2022 5:57 AM CDT [facility] Comment:eGFR calculated with 2020 CKD-EPI equation. Vegetarian diet, extremely high or low muscle mass, and may affect results. Cystatin C with Glomerular Filtration Rate is a suitable alternative for these patients. ANION GAP 10 9 - 20 mmol/L 12/12/2022 5:57 AM CDT [facility] Blood Collection / Unknown 12/12/2022 3:15 AM CDT 12/12/2022 5:23 AM CDT Low Amaya DO CHEMISTRY ORDERABLES Final R esult [facility] CLIA # [id number] [facility] [address] documented in this encounter Visit Diagnoses Not on filedocumented in this encounter Additional Health Concerns Infection Onset Date Last Indicated Resolved Time C Diff 11/17/2022 11/17/2022 01/16/2023 1:16 AM CDT documented as of this encounter Care Teams Gun Sealing Machine Operator Relationship Specialty Start Date End Date Shant Ballesteros Jr., MD [address] [place] [address] PCP - General Family Practice 01/19/14 documented as of this encounter
--- OUTSIDE RECORDS SUMMARY | 2025-05-14 15:58 | XMS_ITS | Encounter Summary ---
Author Organization [employer] [facility] Address [address] [place] [address] Care Team Providers Care Marketing Communications Associate Name Role Phone Favian Maldonado MD, Shant Humphreys Primary Care Provider Encounter Details Date Type Department Care Team (Late st Contact Info) Description 11/26/2022 Lab Requisition [facility] Laboratory Services [address] [place] [address] [place] [address] Low Amaya, DO [address] [place] [address] Social History Tobacco Use Types Packs/Day Years Used Date Smoking Tobacco: Never Assessed Sex and Gender Information Value Date Recorded Sex Assigned at Not on file Legal 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 BLUEPRINT CUTTER Gender Identity Not on file Sexual Orientation Not on file documented as of this encounter Plan of Treatment Not on file documented as of this encounter Procedures Procedure Name Priority Date/Time Associated Diagnosis Comments CALCIUM IONIZED Routine 11/26/2022 6:20 AM BLUEPRINT CUTTER documented in this encounter Results * CALCIUM IONIZED (11/26/2022 6:20 AM BLUEPRINT CUTTER) CALCIUM IONIZED 5.3 4.8 - 5.6 mg/dL 11/27/2022 9:49 AM BLUEPRINT CUTTER [facility] Blood Collection / Unknown 11/26/2022 6:20 AM BLUEPRINT CUTTER 11/26/2022 9:28 AM BLUEPRINT CUTTER Narrative [facility] - 11/27/2022 9:49 AM BLUEPRINT CUTTER Performing Organization Information: Site ID: [id number] Name: [facility] Address: [address] [address] Director: Andrew Alvarado MD us Low Amaya DO CHEMISTRY ORDERABLES Final R esult [facility] documented in this encounter Visit Diagnoses Not on filedocumented in this encounter Additional Health Concerns Infection Onset Date Last Indicated Resolved Time C Diff 11/17/2022 11/17/2022 01/16/2023 1:16 AM CDT documented as of this encounter Care Teams Marketing Communications Associate Relationship Specialty Start Date End Date Shant Ballesteros Jr., MD [address] [place] [address] PCP - General Family Practice 01/19/14 documented as of this encounter
--- OUTSIDE RECORDS SUMMARY | 2025-05-14 15:58 | XMS_ITS | Encounter Summary ---
Author Organization [employer] Address [address] [place] [address] Care Team Providers Care Manufacturing Development Engineer Name Role Phone Favian Maldonado MD, Shant Humphreys Primary Care Provider Encounter Details Date Type Department Care Team (Late st Contact Info) Description 12/13/2022 Lab Requisition [facility] Laboratory Services [address] [place] [address] [place] [address] Esther Sarmiento MD [address] [place] [address] Social History Tobacco Use Types Packs/Day Years Used Date Smoking Tobacco: Never Assessed Sex and Gender Information Value Date Recorded Sex Assigned at Not on file 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 Gender Identity Not on file Sexual Orientation [...] CBC WITH DIFFERENTIAL (12/13/2022 4:30 AM CDT) [facility] WBC 6.0 4.8 - 10.8 K/uL 12/13/2022 5:36 AM CDT [facility] RBC 3.36(L) 4.60 - 6.20 M/uL 12/13/2022 5:36 AM [facility] HEMOGLOBIN 10.3(L) 14.0 - 18.0 g/dL 12/13/2022 5:36 AM [facility] HEMATOCRIT 33.7(L) 41.0 - 53.0 % 12/13/2022 5:36 AM [facility] MCV 100.3 84.0 - 103.0 fL 12/13/2022 5:36 AM [facility] MCH 30.7 27.0 - 34.0 pg 12/13/2022 5:36 AM [facility] MCHC 30.6 30.0 - 35.0 g/dL 12/13/2022 5:36 AM [facility] RDW 15.9(H) 11.0 - 14.5 % 12/13/2022 5:36 AM [facility] RDW-STDEV 58.9(H) 37.0 - 54.0 fL 12/13/2022 5:36 AM [facility] PLATELETS 262 140 - 440 K/uL 12/13/2022 5:36 AM [facility] MPV 10.9 8.9 - 12.8 fL 12/13/2022 5:36 AM [facility] NEUTROPHILS 54 42 - 75 % 12/13/2022 5:36 AM [facility] LYMPHOCYTES 23(L) 24 - 44 % 12/13/2022 5:36 AM [facility] MONOCYTES 14(H) 2 - 10 % 12/13/2022 5:36 AM [facility] EOSINOPHILS 8(H) 0 - 7 % 12/13/2022 5:36 AM [facility] BASOPHILS 1 0 - 1 % 12/13/2022 5:36 AM [facility] IMMATURE GRANULOCYTES 1 0 - 2 % 12/13/2022 5:36 AM [facility] NEUTROPHIL ABSOLUTE 3.23 2.00 - 8.00 K/uL 12/13/2022 5:36 AM [facility] LYMPHOCYTE ABSOLUTE 1.39 1.20 - 4.00 K/uL 12/13/2022 5:36 AM CDT [facility] MONOCYTE ABSOLUTE 0.81(H) 0.10 - 0.60 K/uL 12/13/2022 5:36 AM CDT [facility] EOSINOPHIL ABSOLUTE 0.50 0.00 - 0.70 K/uL 12/13/2022 5:36 AM CDT [facility] BASOPHILS ABSOLUTE 0.04 0.00 - 0.20 K/uL 12/13/2022 5:36 AM CDT [facility] IMMATURE GRANULOCYTES ABSOLUTE 0.03 0.00 - 0.10 K/uL 12/13/2022 5:36 AM CDT [facility] Blood Collection / Unknown 12/13/2022 4:30 AM CDT 12/13/2022 5:28 AM CDT us Esther Sarmiento MD HEMATOLOGY ORDERABLES Final Resu lt [facility] CLIA # [id number] [address] [place] [address] * (ABNORMAL) TESTOSTERONE FREE AND TOTAL (12/13/2022 4:30 AM CDT) [facility] TESTOSTERONE 28(L) 250 - 1100 ng/dL 12/16/2022 11:31 AM CDT [facility] Comment: Men with clinically significant hypogonadal symptoms and testosterone values repeatedly in the range of the 200-300 ng/dL or less, may benefit from testosterone treatment after adequate risk and benefits counseling. For additional information, please refer to https://education.QuantConnect/faq/QCJ703 (This link is being provided for informational/educational purposes only.) (Note) This test was developed and its analytical performance characteristics have been determined by [employer]. It has not been cleared or approved by the FDA. This assay has been validated pursuant to the CLIA regulations and is used for clinical purposes. TESTOSTERONE FREE 4.3(L) 35.0 - 155.0 pg/mL 12/16/2022 11:31 AM CDT [facility] Comment: (Note) This test was developed and its analytical performance characteristics have been determined by [employer]. It has not been cleared or approved by the FDA. This assay has been validated pursuant to the CLIA regulations and is used for clinical purposes. [facility] [address] [place] [address],[address] [place] [id number] Manuel Tirado MD Blood Collection / Unknown 12/13/2022 4:30 AM CDT 12/13/2022 7:43 AM CDT Narrative [facility] - 12/16/2022 11:31 AM CDT Performing Organization Information: Site ID: [id number] Name: [facility] Address: [address] [place] [address], [address] [place] [address] Director: Manuel Tirado MD Esther Sarmiento MD CHEMISTRY ORDERABLES Final Resul t [facility] documented in this encounter Visit Diagnoses Not on filedocumented in this encounter Additional Health Concerns Infection Onset Date Last Indicated Resolved Time C Diff 11/17/2022 11/17/2022 01/16/2023 1:16 AM CDT documented as of this encounter Care Teams Manufacturing Development Engineer Relationship Specialty Start Date End Date Shant Ballesteros Jr., MD [address] [place] [address] PCP - General Family Practice 01/19/14 documented as of this encounter
--- OUTSIDE RECORDS SUMMARY | 2025-05-14 15:58 | XMS_ITS | Encounter Summary ---
Author Organization [facility] Address 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 Gender Identity Not on file Sexual Orientation [...] - 10.8 K/uL 12/17/2022 6:20 AM CDT [facility] RBC 3.85(L) 4.60 - 6.20 M/uL 12/17/2022 6:20 AM CDT [facility] HEMOGLOBIN 11.5(L) 14.0 - 18.0 g/dL 12/17/2022 6:20 AM [facility] HEMATOCRIT 36.6(L) 41.0 - 53.0 % 12/17/2022 6:20 AM [facility] MCV 95.1 84.0 - 103.0 fL 12/17/2022 6:20 AM [facility] MCH 29.9 27.0 - 34.0 pg 12/17/2022 6:20 AM [facility] MCHC 31.4 30.0 - 35.0 g/dL 12/17/2022 6:20 AM [facility] RDW 15.6(H) 11.0 - 14.5 % 12/17/2022 6:20 AM [facility] RDW-STDEV 54.4(H) 37.0 - 54.0 fL 12/17/2022 6:20 AM [facility] PLATELETS 282 140 - 440 K/uL 12/17/2022 6:20 AM [facility] MPV 10.7 8.9 - 12.8 fL 12/17/2022 6:20 AM [facility] NEUTROPHILS 58 42 - 75 % 12/17/2022 6:20 AM [facility] LYMPHOCYTES 22(L) 24 - 44 % 12/17/2022 6:20 AM [facility] MONOCYTES 12(H) 2 - 10 % 12/17/2022 6:20 AM [facility] EOSINOPHILS 8(H) 0 - 7 % 12/17/2022 6:20 AM [facility] BASOPHILS 1 0 - 1 % 12/17/2022 6:20 AM [facility] IMMATURE GRANULOCYTES 1 0 - 2 % 12/17/2022 6:20 AM [facility] NEUTROPHIL ABSOLUTE 4.48 2.00 - 8.00 K/uL 12/17/2022 6:20 AM [facility] LYMPHOCYTE ABSOLUTE 1.67 1.20 - 4.00 K/uL 12/17/2022 6:20 AM CDT [facility] MONOCYTE ABSOLUTE 0.90(H) 0.10 - 0.60 K/uL 12/17/2022 6:20 AM CDT [facility] EOSINOPHIL ABSOLUTE 0.61 0.00 - 0.70 K/uL 12/17/2022 6:20 AM CDT [facility] BASOPHILS ABSOLUTE 0.06 0.00 - 0.20 K/uL 12/17/2022 6:20 AM CDT [facility] IMMATURE GRANULOCYTES ABSOLUTE 0.04 0.00 - 0.10 K/uL 12/17/2022 6:20 AM CDT [facility] Blood Collection / Unknown 12/17/2022 3:30 AM CDT 12/17/2022 6:14 AM CDT us Andre Mary JOURNEYMAN POWERHOUSE OPERATOR HEMATOLOGY ORDERABLES Fi nal Result Performing Organization Address City/State/[place]UST Co de Phone Number [facility] CLIA # [id number] [facility] [address] documented in this encounter Visit Diagnoses Not on filedocumented in this encounter Additional Health Concerns Infection Onset Date Last Indicated Resolved Time C Diff 11/17/2022 11/17/2022 01/16/2023 1:16 AM CDT documented as of this encounter Care Teams Complaint Inspector Relationship Specialty Start Date End Date Shant Ballesteros Jr., MD [address] [place] [address] PCP - General Family Practice 01/19/14 documented as of this encounter
--- OUTSIDE RECORDS SUMMARY | 2025-05-14 15:58 | XMS_ITS | Encounter Summary ---
Author Organization [employer] [facility] Address [address] [place] [address] Care Team Providers Care Teacher Asst Name Role Phone Favian Maldonado MD, Shant Humphreys Primary Care Provider Encounter Details Date Type Department Care Team (Late st Contact Info) Description 12/20/[address] 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 Gender Identity Not on file Sexual [...] 136 - 145 mmol/L 12/20/2022 6:20 AM [facility] POTASSIUM 5.4(H) 3.5 - 5.1 mmol/L 12/20/2022 6:20 AM [facility] CHLORIDE 97(L) 98 - 107 mmol/L 12/20/2022 6:20 AM [facility] CO2 26 22 - 29 mmol/L 12/20/2022 6:20 AM [facility] CALCIUM 10.2 8.8 - 10.2 mg/dL 12/20/2022 6:20 AM [facility] BUN 42(H) 8 - 23 mg/dL 12/20/2022 6:20 AM [facility] CREATININE 1.10 0.67 - 1.17 mg/dL 12/20/2022 6:20 AM [facility] GLUCOSE 120(H) 74 - 99 mg/dL 12/20/2022 6:20 AM [facility] TOTAL PROTEIN 7.4 6.4 - 8.3 g/dL 12/20/2022 6:20 AM [facility] ALBUMIN 3.6 3.5 - 5.2 g/dL 12/20/2022 6:20 AM [facility] BILIRUBIN TOTAL 0.2 0.2 - 1.0 mg/dL 12/20/2022 6:20 AM [facility] ALKALINE PHOSPHATASE 103 40 - 129 U/L 12/20/2022 6:20 AM [facility] AST 27 10 - 50 U/L 12/20/2022 6:20 AM [facility] ALT 34 <=50 U/L 12/20/2022 6:20 AM [facility] GFR >60 >=60 mL/min/1.7 3 sq meter 12/20/2022 6:20 AM [facility] Comment:eGFR calculated with 2020 CKD-EPI equation. Vegetarian diet, extremely high or low muscle mass, and may affect results. Cystatin C with Glomerular Filtration Rate is a suitable alternative for these patients. ANION GAP 11 9 - 20 mmol/L 12/20/2022 6:[address] [facility] Blood Collection / Unknown 12/20/2022 1:20 AM CDT 12/20/2022 6:05 AM CDT us Deborah Aguilar MD CHEMISTRY ORDERABLES Final Resu lt [facility] CLIA # [id number] [address] [address] [place] [address] * (ABNORMAL) CBC WITH DIFFERENTIAL (12/20/2022 1:20 AM CDT) WBC 7.9 4.8 - 10.8 K/uL 12/20/2022 6:[address] [facility] RBC 3.74(L) 4.60 - 6.20 M/uL 12/20/2022 6:[address] [facility] HEMOGLOBIN 11.4(L) 14.0 - 18.0 g/dL 12/20/2022 6:[address] [facility] HEMATOCRIT 35.9(L) 41.0 - 53.0 % 12/20/2022 6:09 AM [facility] MCV 96.0 84.0 - 103.0 fL 12/20/2022 6:[address] [facility] MCH 30.5 27.0 - 34.0 pg 12/20/2022 6:[address] [facility] MCHC 31.8 30.0 - 35.0 g/dL 12/20/2022 6:[address] [facility] RDW 15.5(H) 11.0 - 14.5 % 12/20/2022 6:09 AM [facility] RDW-STDEV 55.0(H) 37.0 - 54.0 fL 12/20/2022 6:09 AM [facility] PLATELETS 279 140 - 440 K/uL 12/20/2022 6:[address] [facility] MPV 10.5 8.9 - 12.8 fL 12/20/2022 6:[address] [facility] NEUTROPHILS 54 42 - 75 % 12/20/2022 6:[address] [facility] LYMPHOCYTES 22(L) 24 - 44 % 12/20/2022 6:[address] [facility] MONOCYTES 13(H) 2 - 10 % 12/20/2022 6:[address] [facility] EOSINOPHILS 10(H) 0 - 7 % 12/20/2022 6:[address] [facility] BASOPHILS 1 0 - 1 % 12/20/2022 6:[address] [facility] IMMATURE GRANULOCYTES 1 0 - 2 % 12/20/2022 6:09 AM [facility] NEUTROPHIL ABSOLUTE 4.27 2.00 - 8.00 K/uL 12/20/2022 6:[address] [facility] LYMPHOCYTE ABSOLUTE 1.72 1.20 - 4.00 K/uL 12/20/2022 6:[address] [facility] MONOCYTE ABSOLUTE 0.99(H) 0.10 - 0.60 K/uL 12/20/2022 6:09 AM [facility] EOSINOPHIL ABSOLUTE 0.76(H) 0.00 - 0.70 K/uL 12/20/2022 6:09 AM [facility] BASOPHILS ABSOLUTE 0.06 0.00 - 0.20 K/uL 12/20/2022 6:09 AM [facility] IMMATURE GRANULOCYTES ABSOLUTE 0.05 0.00 - 0.10 K/uL 12/20/2022 6:09 AM [facility] Blood Collection / Unknown 12/20/2022 1:20 AM CDT 12/20/2022 6:05 AM CDT us Deborah Aguilar MD HEMATOLOGY ORDERABLES Final Res ult [facility] # [id number] [address] [address] [place] [address] documented in this encounter Visit Diagnoses Not on filedocumented in this encounter Additional Health Concerns Infection Onset Date Last Indicated Resolved Time C Diff 11/17/2022 11/17/2022 01/16/2023 1:16 AM CDT documented as of this encounter Care Teams Teacher Asst Relationship Specialty Start Date End Date Shant Ballesteros Jr., MD [address] [place] [id number] PCP - General Family Practice 01/19/14 documented as of this encounter
--- OUTSIDE RECORDS SUMMARY | 2025-05-14 15:58 | XMS_ITS | Encounter Summary ---
Author Organization [facility] Address 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 Gender Identity Not on file Sexual Orientation Not on file documented as of this encounter Plan of Treatment Not on file documented as of this encounter Procedures Procedure Name Priority Date/Time Associated Diagnosis Comments CBC WITH DIFFERENTIAL Routine 12/06/2022 4:50 PM INSTALLER documented in this encounter Results * (ABNORMAL) CBC WITH DIFFERENTIAL (12/06/2022 4:50 PM INSTALLER) WBC 7.0 4.8 - 10.8 K/uL 12/06/2022 6:27 PM INSTALLER [facility] RBC 3.23(L) 4.60 - 6.20 M/uL 12/06/2022 6:27 PM INSTALLER [facility] HEMOGLOBIN 9.6(L) 14.0 - 18.0 g/dL 12/06/2022 6:27 PM [facility] HEMATOCRIT 31.3(L) 41.0 - 53.0 % 12/06/2022 6:27 PM [facility] MCV 96.9 84.0 - 103.0 fL 12/06/2022 6:27 PM [facility] MCH 29.7 27.0 - 34.0 pg 12/06/2022 6:27 PM [facility] MCHC 30.7 30.0 - 35.0 g/dL 12/06/2022 6:27 PM [facility] RDW 16.9(H) 11.0 - 14.5 % 12/06/2022 6:27 PM [facility] RDW-STDEV 60.0(H) 37.0 - 54.0 fL 12/06/2022 6:27 PM [facility] PLATELETS 247 140 - 440 K/uL 12/06/2022 6:27 PM [facility] MPV 10.5 8.9 - 12.8 fL 12/06/2022 6:27 PM [facility] NEUTROPHILS 57 42 - 75 % 12/06/2022 6:27 PM [facility] LYMPHOCYTES 20(L) 24 - 44 % 12/06/2022 6:27 PM [facility] MONOCYTES 11(H) 2 - 10 % 12/06/2022 6:27 PM [facility] EOSINOPHILS 11(H) 0 - 7 % 12/06/2022 6:27 PM [facility] BASOPHILS 1 0 - 1 % 12/06/2022 6:27 PM [facility] IMMATURE GRANULOCYTES 0 0 - 2 % 12/06/2022 6:27 PM [facility] NEUTROPHIL ABSOLUTE 3.99 2.00 - 8.00 K/uL 12/06/2022 6:27 PM [facility] LYMPHOCYTE ABSOLUTE 1.43 1.20 - 4.00 K/uL 12/06/2022 6:27 PM [facility] MONOCYTE ABSOLUTE 0.77(H) 0.10 - 0.60 K/uL 12/06/2022 6:27 PM INSTALLER [facility] EOSINOPHIL ABSOLUTE 0.76(H) 0.00 - 0.70 K/uL 12/06/2022 6:27 PM INSTALLER [facility] BASOPHILS ABSOLUTE 0.04 0.00 - 0.20 K/uL 12/06/2022 6:27 PM INSTALLER [facility] IMMATURE GRANULOCYTES ABSOLUTE 0.02 0.00 - 0.10 K/uL 12/06/2022 6:27 PM INSTALLER [facility] Blood Collection / Unknown 12/06/2022 4:50 PM INSTALLER 12/06/2022 6:16 PM INSTALLER us eDborah Aguilar MD HEMATOLOGY ORDERABLES Final Res ult [facility] CLIA # [id number] [facility] [address] documented in this encounter Visit Diagnoses Not on filedocumented in this encounter Additional Health Concerns Infection Onset Date Last Indicated Resolved Time C Diff 11/17/2022 11/17/2022 01/16/2023 1:16 AM CDT documented as of this encounter Care Teams Journeyman Machinist Relationship Specialty Start Date End Date Shant Ballesteros Jr., MD [address] [place] [address] PCP - General Family Practice 01/19/14 documented as of this encounter
--- OUTSIDE RECORDS SUMMARY | 2025-05-14 15:58 | XMS_ITS | Encounter Summary ---
Author Organization [employer] Address [address] [place] [address] Care Team Providers Care Disaster Recovery Consultant Name Role Phone Favian Maldonado MD, Shant Humphreys Primary Care Provider Encounter Details Date Type Department Care Team (Late st Contact Info) Description 12/05/2022 Lab Requisition [facility] Laboratory Services [address] [place] [address] Low Amaya, DO [address] [place] [phone] Social History Tobacco Use Types Packs/Day Years Used Date Smoking Tobacco: Never Assessed Sex and Gender Information Value Date Recorded Sex Assigned at Not on file 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 Gender Identity Not on file Sexual Orientation Not on file documented as of this encounter Plan of Treatment Not on file documented as of this encounter Procedures Procedure Name Priority Date/Time Associated Diagnosis Comments PHOSPHORUS Routine 12/05/2022 6:30 AM CUSTOMER LOGISTICS MANAGER MAGNESIUM LEVEL Routine 12/05/2022 6:30 AM CUSTOMER LOGISTICS MANAGER BASIC METABOLIC PANEL Routine 12/05/2022 6:30 AM CUSTOMER LOGISTICS MANAGER documented in this encounter Results * MAGNESIUM LEVEL (12/05/2022 6:30 AM CUSTOMER LOGISTICS MANAGER) MAGNESIUM 2.0 1.6 - 2.4 mg/dL 12/05/2022 8:37 AM CUSTOMER LOGISTICS MANAGER [facility] Blood Collection / Unknown 12/05/2022 6:30 AM CUSTOMER LOGISTICS MANAGER 12/05/2022 8:18 AM CUSTOMER LOGISTICS MANAGER Low Amaya DO CHEMISTRY ORDERABLES Final R esult Performing Organization Address [facility]/ZIP Co de Phone Number [facility] CLIA # [id number] [address] [address] * PHOSPHORUS (12/05/2022 6:30 AM CUSTOMER LOGISTICS MANAGER) PHOSPHORUS 4.0 2.5 - 4.5 mg/dL 12/05/2022 8:37 AM [facility] Blood Collection / Unknown 12/05/2022 6:30 AM CUSTOMER LOGISTICS MANAGER 12/05/2022 8:18 AM CUSTOMER LOGISTICS MANAGER Low Amaya DO CHEMISTRY ORDERABLES Final R esult Performing Organization Address [facility] Co de Phone Number [facility] CLIA # [id number] [address] [address] * (ABNORMAL) BASIC METABOLIC PANEL (12/05/2022 6:30 AM CUSTOMER LOGISTICS MANAGER) SODIUM 141 136 - 145 mmol/L 12/05/2022 8:37 AM [facility] POTASSIUM 4.4 3.5 - 5.1 mmol/L 12/05/2022 8:37 AM [facility] CHLORIDE 105 98 - 107 mmol/L 12/05/2022 8:37 AM [facility] CO2 32(H) 22 - 29 mmol/L 12/05/2022 8:37 AM [facility] CALCIUM 10.2 8.8 - 10.2 mg/dL 12/05/2022 8:37 AM [facility] BUN 35(H) 8 - 23 mg/dL 12/05/2022 8:37 AM [facility] CREATININE 0.93 0.67 - 1.17 mg/dL 12/05/2022 8:37 AM [facility] GLUCOSE 116(H) 74 - 99 mg/dL 12/05/2022 8:37 AM [facility] GFR >60 >=60 mL/min/1.7 3 sq meter 12/05/2022 8:37 AM [facility] Comment:eGFR calculated with 2020 CKD-EPI equation. Vegetarian diet, extremely high or low muscle mass, and may affect results. Cystatin C with Glomerular Filtration Rate is a suitable alternative for these patients. ANION GAP 4(L) 9 - 20 mmol/L 12/05/2022 8:37 AM [facility] Blood Collection / Unknown 12/05/2022 6:30 AM [employer] MA[employer] 12/05/2022 8:18 AM CUSTOMER LOGISTICS MANAGER Low Amaya DO CHEMISTRY ORDERABLES Final R [id number] [address] [place] [id number] documented in this encounter Visit Diagnoses Not on filedocumented in this encounter Additional Health Concerns Infection Onset Date Last Indicated Resolved Time C Diff 11/17/2022 11/17/2022 01/16/2023 1:16 AM CDT documented as of this encounter Care Teams Disaster Recovery Consultant Relationship Specialty Start Date End Date Shant Ballesteros Jr., MD [address] [place] [id number] PCP - General Family Practice 01/19/14 documented as of this encounter
--- OUTSIDE RECORDS SUMMARY | 2025-05-14 15:58 | XMS_ITS | Encounter Summary ---
Author Organization [employer] Address [address] [place] [address] Care Team Providers Care Sports Book Writer Name Role Phone Favian Maldonado MD, Shant Humphreys Primary Care Provider Encounter Details Date Type Department Care Team (Late st Contact Info) Description 11/28/2022 Lab Requisition [facility] Laboratory Services [address] [place] [address] Low Amaya, DO [address] [place] [phone] Social History Tobacco Use Types Packs/Day Years Used Date Smoking Tobacco: Never Assessed Sex and Gender Information Value Date Recorded Sex Assigned at Not on file Legal 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 CHEMICAL RADIATION TECHNICIAN Gender Identity Not on file Sexual Orientation Not on file documented as of this encounter Plan of Treatment Not on file documented as of this encounter Procedures Procedure Name Priority Date/Time Associated Diagnosis Comments PHOSPHORUS Routine 11/28/2022 7:48 AM CHEMICAL RADIATION TECHNICIAN MAGNESIUM LEVEL Routine 11/28/2022 7:48 AM CHEMICAL RADIATION TECHNICIAN COMPREHENSIVE METABOLIC PANEL Routine 11/28/2022 7:48 AM CHEMICAL RADIATION TECHNICIAN documented in this encounter Results * MAGNESIUM LEVEL (11/28/2022 7:48 AM CHEMICAL RADIATION TECHNICIAN) MAGNESIUM 2.0 1.6 - 2.4 mg/dL 11/28/2022 8:53 AM CHEMICAL RADIATION TECHNICIAN [facility] Blood Collection / Unknown 11/28/2022 7:48 AM CHEMICAL RADIATION TECHNICIAN 11/28/2022 8:34 AM CHEMICAL RADIATION TECHNICIAN Low Amaya DO CHEMISTRY ORDERABLES Final R esult Performing Organization Address [facility]/ZIP Co de Phone Number [facility] CLIA # [id number] [address] [address] * PHOSPHORUS (11/28/2022 7:48 AM CHEMICAL RADIATION TECHNICIAN) PHOSPHORUS 3.0 2.5 - 4.5 mg/dL 11/28/2022 8:53 AM [facility] Blood Collection / Unknown 11/28/2022 7:48 AM CHEMICAL RADIATION TECHNICIAN 11/28/2022 8:34 AM CHEMICAL RADIATION TECHNICIAN Low Amaya DO CHEMISTRY ORDERABLES Final R esult Performing Organization Address [facility]/ZIP Co de Phone Number [facility] CLIA # [id number] [address] [address] * (ABNORMAL) COMPREHENSIVE METABOLIC PANEL (11/28/2022 7:48 AM CHEMICAL RADIATION TECHNICIAN) SODIUM 143 136 - 145 mmol/L 11/28/2022 8:53 AM [facility] POTASSIUM 4.0 3.5 - 5.1 mmol/L 11/28/2022 8:53 AM [facility] CHLORIDE 103 98 - 107 mmol/L 11/28/2022 8:53 AM [facility] CO2 33(H) 22 - 29 mmol/L 11/28/2022 8:53 AM [facility] CALCIUM 9.4 8.8 - 10.2 mg/dL 11/28/2022 8:53 AM [facility] BUN 27(H) 8 - 23 mg/dL 11/28/2022 8:53 AM [facility] CREATININE 0.96 0.67 - 1.17 mg/dL 11/28/2022 8:53 AM [facility] GLUCOSE 112(H) 74 - 99 mg/dL 11/28/2022 8:53 AM [facility] TOTAL PROTEIN 7.0 6.4 - 8.3 g/dL 11/28/2022 8:53 AM [facility] ALBUMIN 3.1(L) 3.5 - 5.2 g/dL 11/28/2022 8:53 AM [facility] BILIRUBIN TOTAL 0.3 0.2 - 1.0 mg/dL 11/28/2022 8:53 AM [facility] ALKALINE PHOSPHATASE 97 40 - 129 U/L 11/28/2022 8:53 AM [facility] AST 14 10 - 50 U/L 11/28/2022 8:53 AM [facility] ALT 11 <=50 U/L 11/28/2022 8:53 AM [facility] GFR >60 >=60 mL/min/1.7 3 sq meter 11/28/2022 8:53 AM [facility] Comment:eGFR calculated with 2020 CKD-EPI equation. Vegetarian diet, extremely high or low muscle mass, and may affect results. Cystatin C with Glomerular Filtration Rate is a suitable alternative for these patients. ANION GAP 7(L) 9 - 20 mmol/L 11/28/2022 8:53 AM [facility] Blood Collection / Unknown 11/28/2022 7:48 AM CHEMICAL RADIATION TECHNICIAN 11/28/2022 8:34 AM CHEMICAL RADIATION TECHNICIAN us Low Amaya DO CHEMISTRY ORDERABLES Final R esult [facility] CLIA # [id number] [facility] [address] documented in this encounter Visit Diagnoses Not on filedocumented in this encounter Additional Health Concerns Infection Onset Date Last Indicated Resolved Time C Diff 11/17/2022 11/17/2022 01/16/2023 1:16 AM CDT documented as of this encounter Care Teams Sports Book Writer Relationship Specialty Start Date End Date Shant Ballesteros Jr., MD [address] [place] [address] PCP - General Family Practice 01/19/14 documented as of this encounter
--- OUTSIDE RECORDS SUMMARY | 2025-05-14 15:58 | XMS_ITS | Encounter Summary ---
Author Organization [employer] Address 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 Gender Identity Not on file Sexual Orientation [...] CALCIUM IONIZED (12/10/2022 2:00 AM CDT) Pathologist [facility] CALCIUM IONIZED 5.4 4.7 - 5.5 mg/dL 12/11/2022 2:42 PM CDT [facility] Blood Collection / Unknown 12/10/2022 2:00 AM CDT 12/10/2022 7:02 AM CDT Narrative [facility] - 12/11/2022 2:42 PM CDT Performing Organization Information: Site ID: [place] Name: [employer] Address: [address] [place] [address] Director: Andrew Alvarado MD Low Amaya CHEMISTRY ORDERABLES Final R esult Performing Organization Address City/[facility]/ZIP Co de Phone Number [facility] * MAGNESIUM LEVEL (12/10/2022 2:00 AM CDT) [facility] MAGNESIUM 2.0 1.6 - 2.4 mg/dL 12/10/2022 7:38 AM CDT [facility] Blood Collection / Unknown 12/10/2022 2:00 AM CDT 12/10/2022 7:02 AM CDT Low Amaya CHEMISTRY ORDERABLES Final R esult Performing Organization Address City/[facility]/ZIP Co de Phone Number [facility] CLIA # [id number] [address] [address] [place] [address] * (ABNORMAL) TRIGLYCERIDE (12/10/2022 2:00 AM CDT) [facility] TRIGLYCERIDE 202(H) <150 mg/dL 12/10/2022 7:38 AM CDT [facility] Blood Collection / Unknown 12/10/2022 2:00 AM CDT 12/10/2022 7:02 AM CDT Narrative [facility] - 12/10/2022 7:38 AM CDT TRIGLYCERIDES mg/dL Normal < 150 Borderline High 150 - 199 High 200 - 499 Very High >= 500 Based on AHA/NCEP Guidelines. Low Amaya DO CHEMISTRY ORDERABLES Final R esult Performing Organization Address City/[facility]/ZIP Co de Phone Number [facility] CLIA # [id number] [address] [address] * PHOSPHORUS (12/10/2022 2:00 AM CDT) [facility] PHOSPHORUS 3.5 2.5 - 4.5 mg/dL 12/10/2022 7:38 AM CDT [facility] Blood Collection / Unknown 12/10/2022 2:00 AM CDT 12/10/2022 7:02 AM CDT Low Amaya DO CHEMISTRY ORDERABLES Final R [facility] Performing Organization Address [facility] Co de Phone Number [facility] CLIA # [id number] [address] [address] * (ABNORMAL) CBC WITH DIFFERENTIAL (12/10/2022 2:00 AM CDT) [facility] WBC 7.0 4.8 - 10.8 K/uL 12/10/2022 7:10 AM CDT [facility] RBC 3.23(L) 4.60 - 6.20 M/uL 12/10/2022 7:10 AM CDT [facility] HEMOGLOBIN 9.7(L) 14.0 - 18.0 g/dL 12/10/2022 7:10 AM CDT [facility] HEMATOCRIT 31.3(L) 41.0 - 53.0 % 12/10/2022 7:10 AM [facility] MCV 96.9 84.0 - 103.0 fL 12/10/2022 7:10 AM [facility] MCH 30.0 27.0 - 34.0 pg 12/10/2022 7:10 AM [facility] MCHC 31.0 30.0 - 35.0 g/dL 12/10/2022 7:10 AM [facility] RDW 16.3(H) 11.0 - 14.5 % 12/10/2022 7:10 AM [facility] RDW-STDEV 58.5(H) 37.0 - 54.0 fL 12/10/2022 7:10 AM [facility] PLATELETS 236 140 - 440 K/uL 12/10/2022 7:10 AM [facility] MPV 11.2 8.9 - 12.8 fL 12/10/2022 7:10 AM [facility] NEUTROPHILS 56 42 - 75 % 12/10/2022 7:10 AM [facility] LYMPHOCYTES 20(L) 24 - 44 % 12/10/2022 7:10 AM [facility] MONOCYTES 14(H) 2 - 10 % 12/10/2022 7:10 AM [facility] EOSINOPHILS 7 0 - 7 % 12/10/2022 7:10 AM [facility] BASOPHILS 1 0 - 1 % 12/10/2022 7:10 AM [facility] IMMATURE GRANULOCYTES 1 0 - 2 % 12/10/2022 7:10 AM [facility] NEUTROPHIL ABSOLUTE 3.94 2.00 - 8.00 K/uL 12/10/2022 7:10 AM [facility] LYMPHOCYTE ABSOLUTE 1.42 1.20 - 4.00 K/uL 12/10/2022 7:10 AM [facility] MONOCYTE ABSOLUTE 1.01(H) 0.10 - 0.60 K/uL 12/10/2022 7:10 AM [facility] EOSINOPHIL ABSOLUTE 0.52 0.00 - 0.70 K/uL 12/10/2022 7:10 AM CDT [facility] BASOPHILS ABSOLUTE 0.06 0.00 - 0.20 K/uL 12/10/2022 7:10 AM CDT [facility] IMMATURE GRANULOCYTES ABSOLUTE 0.04 0.00 - 0.10 K/uL 12/10/2022 7:10 AM T [facility] Blood Collection / Unknown 12/10/2022 2:00 AM CDT 12/10/2022 7:02 AM CDT us Low Amaya DO HEMATOLOGY ORDERABLES Final Result [facility] CLIA # [id number] [address] [place] [address] * (ABNORMAL) COMPREHENSIVE METABOLIC PANEL (12/10/2022 2:00 AM CDT) SODIUM 136 136 - 145 mmol/L 12/10/2022 7:38 AM [facility] POTASSIUM 4.4 3.5 - 5.1 mmol/L 12/10/2022 7:38 AM [facility] CHLORIDE 102 98 - 107 mmol/L 12/10/2022 7:38 AM [facility] CO2 26 22 - 29 mmol/L 12/10/2022 7:38 AM [facility] CALCIUM 10.0 8.8 - 10.2 mg/dL 12/10/2022 7:38 AM [facility] BUN 35(H) 8 - 23 mg/dL 12/10/2022 7:38 AM [facility] CREATININE 0.94 0.67 - 1.17 mg/dL 12/10/2022 7:38 AM T [facility] GLUCOSE 117(H) 74 - 99 mg/dL 12/10/2022 7:38 AM [facility] TOTAL PROTEIN 7.0 6.4 - 8.3 g/dL 12/10/2022 7:38 AM T [facility] ALBUMIN 3.3(L) 3.5 - 5.2 g/dL 12/10/2022 7:38 AM T [facility] BILIRUBIN TOTAL 0.2 0.2 - 1.0 mg/dL 12/10/2022 7:38 AM T [facility] ALKALINE PHOSPHATASE 113 40 - 129 U/L 12/10/2022 7:38 AM T [facility] AST 17 10 - 50 U/L 12/10/2022 7:38 AM T [facility] ALT 16 <=50 U/L 12/10/2022 7:38 AM T [facility] GFR >60 >=60 mL/min/1.7 3 sq meter 12/10/2022 7:38 AM [facility] Comment:eGFR calculated with 2020 CKD-EPI equation. Vegetarian diet, extremely high or low muscle mass, and may affect results. Cystatin C with Glomerular Filtration Rate is a suitable alternative for these patients. ANION GAP 8(L) 9 - 20 mmol/L 12/10/2022 7:38 AM T [facility] Blood Collection / Unknown 12/10/2022 2:00 AM CDT 12/10/2022 7:02 AM CDT Low Amaya DO CHEMISTRY ORDERABLES Final R esult [facility] CLIA # [id number] [address] [address] documented in this encounter Visit Diagnoses Not on filedocumented in this encounter Additional Health Concerns Infection Onset Date Last Indicated Resolved Time C Diff 11/17/2022 11/17/2022 01/16/2023 1:16 AM CDT documented as of this encounter Care Teams Title I Director Relationship Specialty Start Date End Date Shant Ballesteros Jr., MD [address] [place] [address] PCP - General Family Practice 01/19/14 documented as of this encounter
--- OUTSIDE RECORDS SUMMARY | 2025-05-14 15:58 | XMS_ITS | Encounter Summary ---
Author Organization [facility] Address 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 Gender Identity Not on file Sexual Orientation Not on file documented as of this encounter Plan of Treatment Not on file documented as of this encounter Procedures Procedure Name Priority Date/Time Associated Diagnosis Comments CBC WITH DIFFERENTIAL Routine 12/03/2022 2:00 AM LOOPING MACHINE OPERATOR TRIGLYCERIDE Routine 12/03/2022 2:00 AM LOOPING MACHINE OPERATOR PHOSPHORUS Routine 12/03/2022 2:00 AM LOOPING MACHINE OPERATOR MAGNESIUM LEVEL Routine 12/03/2022 2:00 AM LOOPING MACHINE OPERATOR COMPREHENSIVE METABOLIC PANEL Routine 12/03/2022 2:00 AM LOOPING MACHINE OPERATOR documented in this encounter Results * MAGNESIUM LEVEL (12/03/2022 2:00 AM LOOPING MACHINE OPERATOR) MAGNESIUM 1.9 1.6 - 2.4 mg/dL 12/03/2022 7:06 AM [facility] Blood Collection / Unknown 12/03/2022 2:00 AM LOOPING MACHINE OPERATOR 12/03/2022 6:33 AM LOOPING MACHINE OPERATOR Andre Mary SENIOR ENVIRONMENTAL ENGINEER CHEMISTRY ORDERABLES Fin al Result Performing Organization Address [facility] de Phone Number [facility] CLIA # [id number] [address] [place], [place] [address] * (ABNORMAL) TRIGLYCERIDE (12/03/2022 2:00 AM LOOPING MACHINE OPERATOR) Pathologist [facility] TRIGLYCERIDE 163(H) <150 mg/dL 12/03/2022 7:06 AM [facility] Blood Collection / Unknown 12/03/2022 2:00 AM LOOPING MACHINE OPERATOR 12/03/2022 6:33 AM LOOPING MACHINE OPERATOR Narrative [facility] - 12/03/2022 7:06 AM LOOPING MACHINE OPERATOR TRIGLYCERIDES mg/dL Normal < 150 Borderline High 150 - 199 High 200 - 499 Very High >= 500 Based on AHA/NCEP Guidelines. Andre Mary SENIOR ENVIRONMENTAL ENGINEER CHEMISTRY ORDERABLES Fin al Result Performing Organization Address [facility] de Phone Number [facility] CLIA # [id number] [address] [facility] [place], [place] [address] * PHOSPHORUS (12/03/2022 2:00 AM LOOPING MACHINE OPERATOR) Pathologist [facility] PHOSPHORUS 3.3 2.5 - 4.5 mg/dL 12/03/2022 7:06 AM [facility] Blood Collection / Unknown 12/03/2022 2:00 AM LOOPING MACHINE OPERATOR 12/03/2022 6:33 AM LOOPING MACHINE OPERATOR us Andre Mary NP CHEMISTRY ORDERABLES Fin al Result [facility] CLIA # [id number] [address] [facility] [place] [facility] [place] [address] * (ABNORMAL) CBC WITH DIFFERENTIAL (12/03/2022 2:00 AM LOOPING MACHINE OPERATOR) [facility] WBC 6.5 4.8 - 10.8 K/uL 12/03/2022 6:40 AM [facility] RBC 3.05(L) 4.60 - 6.20 M/uL 12/03/2022 6:40 AM [facility] HEMOGLOBIN 9.1(L) 14.0 - 18.0 g/dL 12/03/2022 6:40 AM [facility] HEMATOCRIT 30.4(L) 41.0 - 53.0 % 12/03/2022 6:40 AM [facility] MCV 99.7 84.0 - 103.0 fL 12/03/2022 6:40 AM [facility] MCH 29.8 27.0 - 34.0 pg 12/03/2022 6:40 AM [facility] MCHC 29.9(L) 30.0 - 35.0 g/dL 12/03/2022 6:40 AM [facility] RDW 17.5(H) 11.0 - 14.5 % 12/03/2022 6:40 AM [facility] RDW-STDEV 63.8(H) 37.0 - 54.0 fL 12/03/2022 6:40 AM [facility] PLATELETS 247 140 - 440 K/uL 12/03/2022 6:40 AM [facility] MPV 10.6 8.9 - 12.8 fL 12/03/2022 6:40 AM [facility] NEUTROPHILS 57 42 - 75 % 12/03/2022 6:40 AM [facility] LYMPHOCYTES 19(L) 24 - 44 % 12/03/2022 6:40 AM [facility] MONOCYTES 12(H) 2 - 10 % 12/03/2022 6:40 AM [facility] EOSINOPHILS 11(H) 0 - 7 % 12/03/2022 6:40 AM [facility] BASOPHILS 1 0 - 1 % 12/03/2022 6:40 AM [facility] IMMATURE GRANULOCYTES 1 0 - 2 % 12/03/2022 6:40 AM [facility] NEUTROPHIL ABSOLUTE 3.68 2.00 - 8.00 K/uL 12/03/2022 6:40 AM [facility] LYMPHOCYTE ABSOLUTE 1.22 1.20 - 4.00 K/uL 12/03/2022 6:40 AM [facility] MONOCYTE ABSOLUTE 0.80(H) 0.10 - 0.60 K/uL 12/03/2022 6:40 AM [facility] EOSINOPHIL ABSOLUTE 0.69 0.00 - 0.70 K/uL 12/03/2022 6:40 AM [facility] BASOPHILS ABSOLUTE 0.06 0.00 - 0.20 K/uL 12/03/2022 6:40 AM [facility] IMMATURE GRANULOCYTES ABSOLUTE 0.03 0.00 - 0.10 K/uL 12/03/2022 6:40 AM [facility] Blood Collection / Unknown 12/03/2022 2:00 AM LOOPING MACHINE OPERATOR 12/03/2022 6:32 AM [facility] us Andre Mary SENIOR ENVIRONMENTAL ENGINEER HEMATOLOGY ORDERABLES Fi nal Result [facility] CLIA # [id number] [address] [facility] [place], [place] [id number] * (ABNORMAL) COMPREHENSIVE METABOLIC PANEL (12/03/2022 2:00 AM LOOPING MACHINE OPERATOR) [facility] SODIUM 140 136 - 145 mmol/L 12/03/2022 7:06 AM [facility] POTASSIUM 3.5 3.5 - 5.1 mmol/L 12/03/2022 7:06 AM [facility] CHLORIDE 101 98 - 107 mmol/L 12/03/2022 7:06 AM [facility] CO2 31(H) 22 - 29 mmol/L 12/03/2022 7:06 AM [facility] CALCIUM 9.8 8.8 - 10.2 mg/dL 12/03/2022 7:06 AM [facility] BUN 28(H) 8 - 23 mg/dL 12/03/2022 7:06 AM [facility] CREATININE 0.88 0.67 - 1.17 mg/dL 12/03/2022 7:06 AM [facility] GLUCOSE 130(H) 74 - 99 mg/dL 12/03/2022 7:06 AM [facility] TOTAL PROTEIN 6.8 6.4 - 8.3 g/dL 12/03/2022 7:06 AM [facility] ALBUMIN 3.1(L) 3.5 - 5.2 g/dL 12/03/2022 7:06 AM [facility] BILIRUBIN TOTAL 0.3 0.2 - 1.0 mg/dL 12/03/2022 7:06 AM [facility] ALKALINE PHOSPHATASE 104 40 - 129 U/L 12/03/2022 7:06 AM [facility] AST 19 10 - 50 U/L 12/03/2022 7:06 AM [facility] ALT 14 <=50 U/L 12/03/2022 7:06 AM [facility] GFR >60 >=60 mL/min/1.7 3 sq meter 12/03/2022 7:06 AM [facility] Comment:eGFR calculated with 2020 CKD-EPI equation. Vegetarian diet, extremely high or low muscle mass, and may affect results. Cystatin C with Glomerular Filtration Rate is a suitable alternative for these patients. ANION GAP 8(L) 9 - 20 mmol/L 12/03/2022 7:06 AM LOOPING MACHINE OPERATOR [facility] Blood Collection / Unknown 12/03/2022 2:00 AM LOOPING MACHINE OPERATOR 12/03/2022 6:33 AM LOOPING MACHINE OPERATOR us Andre Mary SENIOR ENVIRONMENTAL ENGINEER CHEMISTRY ORDERABLES Fin al Result [facility] CLIA # [id number] [facility] [address] [place] [address] documented in this encounter Visit Diagnoses Not on filedocumented in this encounter Additional Health Concerns Infection Onset Date Last Indicated Resolved Time C Diff 11/17/2022 11/17/2022 01/16/2023 1:16 AM CDT documented as of this encounter Care Teams Ship'S Carpenter Relationship Specialty Start Date End Date Shant Ballesteros Jr., MD [address] [place] [address] PCP - General Family Practice 01/19/14 documented as of this encounter
--- OUTSIDE RECORDS SUMMARY | 2025-05-14 15:58 | XMS_ITS | Encounter Summary ---
Author Organization [facility] Address 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 Gender Identity Not on file Sexual Orientation Not on file documented as of this encounter Plan of Treatment Not on file documented as of this encounter Procedures Procedure Name Priority Date/Time Associated Diagnosis Comments EXTRA TUBE (GREEN) Routine 12/06/2022 3:00 AM ACCOUNTANT COST documented in this encounter Results * EXTRA TUBE (GREEN) (12/06/2022 3:00 AM ACCOUNTANT COST) Blood Collection / Unknown 12/06/2022 3:00 AM ACCOUNTANT COST 12/06/2022 7:33 AM ACCOUNTANT COST us Esther Sarmiento MD CHEMISTRY ORDERABLES Final Resul t [facility] CLIA # [id number] [address] [facility] [place] [address] documented in this encounter Visit Diagnoses Not on filedocumented in this encounter Additional Health Concerns Infection Onset Date Last Indicated Resolved Time C Diff 11/17/2022 11/17/2022 01/16/2023 1:16 AM CDT documented as of this encounter Care Teams Fitness Director Relationship Specialty Start Date End Date Shant Ballesteros Jr., MD [address] [place] [address] PCP - General Family Practice 01/19/14 documented as of this encounter
--- OUTSIDE RECORDS SUMMARY | 2025-05-14 15:59 | XMS_ITS | Encounter Summary ---
Author Organization [employer] [facility] Address [address] [place] [address] Care Team Providers Care Maturity Checker Name Role Phone Favian Maldonado MD, Shant Humphreys Primary Care Provider Encounter Details Date Type Department Care Team (Late st Contact Info) Description 11/24/2022 Lab Requisition [facility] Laboratory Services [address] [place] [address] Andre Mary, MADHU [address] [facility] [address] [place] [address] Social History Tobacco Use Types Packs/Day Years Used Date Smoking Tobacco: Never Assessed Sex and Gender Information Value Date Recorded Sex Assigned at Not on file Legal 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 TEENAGE PROGRAM DIRECTOR Gender Identity Not on file Sexual Orientation Not on file documented as of this encounter Plan of Treatment Not on file documented as of this encounter Procedures Procedure Name Priority Date/Time Associated Diagnosis Comments EXTRA TUBE (SST/GOLD) Routine 11/24/2022 7:12 PM TEENAGE PROGRAM DIRECTOR LACTIC ACID Stat 11/24/2022 7:12 PM TEENAGE PROGRAM DIRECTOR PROCALCITONIN Stat 11/24/2022 6:37 PM TEENAGE PROGRAM DIRECTOR CBC WITH DIFFERENTIAL Stat 11/24/2022 6:37 PM TEENAGE PROGRAM DIRECTOR BLOOD CULTURE Stat 11/24/2022 6:37 PM TEENAGE PROGRAM DIRECTOR BLOOD CULTURE Stat 11/24/2022 6:37 PM TEENAGE PROGRAM DIRECTOR COMPREHENSIVE METABOLIC PANEL Stat 11/24/2022 6:37 PM TEENAGE PROGRAM DIRECTOR documented in this encounter Results * EXTRA TUBE (SST/GOLD) (11/24/2022 7:12 PM TEENAGE PROGRAM DIRECTOR) Blood Collection / Unknown 11/24/2022 7:12 PM TEENAGE PROGRAM DIRECTOR 11/24/2022 7:42 PM TEENAGE PROGRAM DIRECTOR Andre Mary MATERIAL CONTROL ANALYST CHEMISTRY ORDERABLES Fin al Result Performing Organization Address [facility] Co de Phone Number [facility] CLIA # [id number] [address] [place] [address] * LACTIC ACID (11/24/2022 7:12 PM TEENAGE PROGRAM DIRECTOR) LACTIC ACID 1.0 <=2.0 mmol/L 11/24/2022 7:47 PM TEENAGE PROGRAM DIRECTOR [facility] Blood Collection / Unknown 11/24/2022 7:12 PM TEENAGE PROGRAM DIRECTOR 11/24/2022 7:25 PM TEENAGE PROGRAM DIRECTOR Andre Mary MATERIAL CONTROL ANALYST CHEMISTRY ORDERABLES Fin al Result Performing Organization Address [facility] Co de Phone Number [facility] CLIA # [id number] [address] [place] [address] * PROCALCITONIN (11/24/2022 6:37 PM TEENAGE PROGRAM DIRECTOR) PROCALCITONIN 0.08 <=0.08 ng/mL 11/24/2022 8:08 PM TEENAGE PROGRAM DIRECTOR [facility] Blood Collection / Unknown 11/24/2022 6:37 PM TEENAGE PROGRAM DIRECTOR 11/24/2022 7:25 PM TEENAGE PROGRAM DIRECTOR Narrative [facility] - 11/24/2022 8:08 PM TEENAGE PROGRAM DIRECTOR The utility of procalcitonin is limited/NOT recommended [...] ORDERABLES Fin al Result Performing Organization Address [facility]/ZIP Co de Phone Number [facility] CLIA # [id number] [address] [place], [place] [address] * BLOOD CULTURE (11/24/2022 6:37 PM TEENAGE PROGRAM DIRECTOR) [facility] Signature BLOOD CULTURE No growth 11/29/2022 10:32 PM TEENAGE PROGRAM DIRECTOR [facility] Blood Collection / Unknown 11/24/2022 6:37 PM TEENAGE PROGRAM DIRECTOR 11/24/2022 7:25 PM TEENAGE PROGRAM DIRECTOR Andre Mary NP MICROBIOLOGY - GENERAL O RDERABLES Final Result Performing Organization Address [facility] Co de Phone Number [facility] CLIA # [id number] [address] [place] [address] * BLOOD CULTURE (11/24/2022 6:37 PM TEENAGE PROGRAM DIRECTOR) Pathologist [facility] BLOOD CULTURE No growth 11/29/2022 10:32 PM TEENAGE PROGRAM DIRECTOR [facility] Blood Collection / Unknown 11/24/2022 6:37 PM TEENAGE PROGRAM DIRECTOR 11/24/2022 7:25 PM TEENAGE PROGRAM DIRECTOR Andre Mary NP MICROBIOLOGY - GENERAL O RDERABLES Final Result [facility] CLIA # [id number] [facility] [address] [address] [place] [address] * (ABNORMAL) CBC WITH DIFFERENTIAL (11/24/2022 6:37 PM TEENAGE PROGRAM DIRECTOR) [facility] WBC 8.1 4.8 - 10.8 K/uL 11/24/2022 7:42 PM [facility] RBC 2.66(L) 4.60 - 6.20 M/uL 11/24/2022 7:42 PM [facility] HEMOGLOBIN 7.9(L) 14.0 - 18.0 g/dL 11/24/2022 7:42 PM [facility] HEMATOCRIT 27.6(L) 41.0 - 53.0 % 11/24/2022 7:42 PM [facility] MCV 103.8(H) 84.0 - 103.0 fL 11/24/2022 7:42 PM [facility] MCH 29.7 27.0 - 34.0 pg 11/24/2022 7:42 PM [facility] MCHC 28.6(L) 30.0 - 35.0 g/dL 11/24/2022 7:42 PM [facility] RDW 18.6(H) 11.0 - 14.5 % 11/24/2022 7:42 PM [facility] RDW-STDEV 69.4(H) 37.0 - 54.0 fL 11/24/2022 7:42 PM [facility] PLATELETS 248 140 - 440 K/uL 11/24/2022 7:42 PM [facility] MPV 10.3 8.9 - 12.8 fL 11/24/2022 7:42 PM [facility] NEUTROPHILS 73 42 - 75 % 11/24/2022 7:42 PM [facility] LYMPHOCYTES 11(L) 24 - 44 % 11/24/2022 7:42 PM [facility] MONOCYTES 13(H) 2 - 10 % 11/24/2022 7:42 PM [facility] EOSINOPHILS 3 0 - 7 % 11/24/2022 7:42 PM [facility] BASOPHILS 0 0 - 1 % 11/24/2022 7:42 PM [facility] IMMATURE GRANULOCYTES 1 0 - 2 % 11/24/2022 7:42 PM [facility] NEUTROPHIL ABSOLUTE 5.86 2.00 - 8.00 K/uL 11/24/2022 7:42 PM [facility] LYMPHOCYTE ABSOLUTE 0.87(L) 1.20 - 4.00 K/uL 11/24/2022 7:42 PM [facility] MONOCYTE ABSOLUTE 1.02(H) 0.10 - 0.60 K/uL 11/24/2022 7:42 PM [facility] EOSINOPHIL ABSOLUTE 0.21 0.00 - 0.70 K/uL 11/24/2022 7:42 PM [facility] BASOPHILS ABSOLUTE 0.03 0.00 - 0.20 K/uL 11/24/2022 7:42 PM [facility] IMMATURE GRANULOCYTES ABSOLUTE 0.07 0.00 - 0.10 K/uL 11/24/2022 7:42 PM [facility] Blood Collection / Unknown 11/24/2022 6:37 PM TEENAGE PROGRAM DIRECTOR 11/24/2022 7:25 PM TEENAGE PROGRAM DIRECTOR Andre Mary NP HEMATOLOGY ORDERABLES Fi nal Result [facility] CLIA # [id number] [address] [address] [place] [address] * (ABNORMAL) COMPREHENSIVE METABOLIC PANEL (11/24/2022 6:37 PM [facility]) SODIUM 144 136 - 145 mmol/L 11/24/2022 8:06 PM [facility] POTASSIUM 4.6 3.5 - 5.1 mmol/L 11/24/2022 8:06 PM [facility] CHLORIDE 105 98 - 107 mmol/L 11/24/2022 8:06 PM [facility] CO2 28 22 - 29 mmol/L 11/24/2022 8:06 PM [facility] CALCIUM 9.4 8.8 - 10.2 mg/dL 11/24/2022 8:06 PM [facility] BUN 42(H) 8 - 23 mg/dL 11/24/2022 8:06 PM [facility] CREATININE 1.50(H) 0.67 - 1.17 mg/dL 11/24/2022 8:06 PM [facility] GLUCOSE 102(H) 74 - 99 mg/dL 11/24/2022 8:06 PM [facility] TOTAL PROTEIN 6.5 6.4 - 8.3 g/dL 11/24/2022 8:06 PM [facility] ALBUMIN 2.9(L) 3.5 - 5.2 g/dL 11/24/2022 8:06 PM [facility] BILIRUBIN TOTAL 0.4 0.2 - 1.0 mg/dL 11/24/2022 8:06 PM [facility] ALKALINE PHOSPHATASE 88 40 - 129 U/L 11/24/2022 8:06 PM [facility] AST 12 10 - 50 U/L 11/24/2022 8:06 PM [facility] ALT 9 <=50 U/L 11/24/2022 8:06 PM [facility] GFR 51(L) >=60 mL/min/1. 73 sq meter 11/24/2022 8:06 PM TEENAGE PROGRAM DIRECTOR [facility] Comment:eGFR calculated with 2020 CKD-EPI equation. Vegetarian diet, extremely high or low muscle mass, and may affect results. Cystatin C with Glomerular Filtration Rate is a suitable alternative for these patients. ANION GAP 11 9 - 20 mmol/L 11/24/2022 8:06 PM TEENAGE PROGRAM DIRECTOR [facility] Blood Collection / Unknown 11/24/2022 6:37 PM TEENAGE PROGRAM DIRECTOR 11/24/2022 7:25 PM TEENAGE PROGRAM DIRECTOR us Andre Mary MATERIAL CONTROL ANALYST CHEMISTRY ORDERABLES Fin al Result [facility] CLIA # [id number] [facility] [address] documented in this encounter Visit Diagnoses Not on filedocumented in this encounter Additional Health Concerns Infection Onset Date Last Indicated Resolved Time C Diff 11/17/2022 11/17/2022 01/16/2023 1:16 AM CDT documented as of this encounter Care Teams Maturity Checker Relationship Specialty Start Date End Date Shant Ballesteros Jr., MD [address] [place] [address] PCP - General Family Practice 01/19/14 documented as of this encounter
--- OUTSIDE RECORDS SUMMARY | 2025-05-14 15:59 | XMS_ITS | Encounter Summary ---
Author Organization [facility] Address [address] [place] [address] Care Team Providers Care Litharge Mill Operator Name Role Phone Favian Maldonado MD, Shant Humphreys Primary Care Provider Encounter Details Date Type Department Care Team (Late st Contact Info) Description 11/24/2022 Lab Requisition [facility] Laboratory Services [address] [place] [address] Andre Mary, MADHU [address] [facility] [address] [place] [address] Social History Tobacco Use Types Packs/Day Years Used Date Smoking Tobacco: Never Assessed Sex and Gender Information Value Date Recorded Sex Assigned at Not on file Legal 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 TALENT ACQUISITION SOURCER Gender Identity Not on file Sexual Orientation Not on file documented as of this encounter Plan of Treatment Not on file documented as of this encounter Procedures Procedure Name Priority Date/Time Associated Diagnosis Comments URINALYSIS W/REFLEX MICROSCOPIC Stat 11/24/2022 9:45 PM TALENT ACQUISITION SOURCER documented in this encounter Results * (ABNORMAL) URINALYSIS WITH REFLEX MICROSCOPIC (11/24/2022 9:45 PM TALENT ACQUISITION SOURCER) COLOR UA Yellow Pale to Dark Yellow 11/24/2022 11:07 PM TALENT ACQUISITION SOURCER [facility] CLARITY UA Clear Clear 11/24/2022 11:07 PM TALENT ACQUISITION SOURCER [facility] SPECIFIC GRAVITY UA 1.012 1.003 - 1.035 11/24/2022 11:07 PM [facility] PH UA 5.0 5.0 - 8.0 11/24/2022 11:07 PM [facility] LEUKOCYTE ESTERASE UA Negative Negative 11/24/2022 11:07 PM [facility] NITRITE UA Negative Negative 11/24/2022 11:07 PM [facility] PROTEIN UA Negative Negative 11/24/2022 11:07 PM [facility] GLUCOSE UA Negative Negative 11/24/2022 11:07 PM [facility] KETONES UA Negative Negative 11/24/2022 11:07 PM [facility] UROBILINOGEN UA <2.0 <2.0 mg/dL 11:07 PM [facility] BILIRUBIN UA Negative Negative 11/24/2022 11:07 PM [facility] BLOOD UA 1+(A) Negative 11/24/2022 11:07 PM [facility] WBC UA 0-2 0 - 2 /hpf 11/24/2022 11:07 PM [facility] RBC UA 0-2 0 - 2 /hpf 11/24/2022 11:07 PM [facility] BACTERIA UA Negative Negative /hpf 11/24/2022 11:07 PM [facility] EPITHELIAL CELLS, URINE 0-5 0 - 5 /hpf 11/24/2022 11:07 PM [facility] Urine URINE SPECIMEN OBTAINED BY CLEAN CATCH PROCEDURE / Unknown Collection / Unknown 11/24/2022 9:45 PM TALENT ACQUISITION SOURCER 11/24/2022 10:55 PM TALENT ACQUISITION SOURCER us Andre Mary COLLEGE DEAN URINE ORDERABLES Final R esult [facility] CLIA # [id number] [address] [address] documented in this encounter Visit Diagnoses Not on filedocumented in this encounter Additional Health Concerns Infection Onset Date Last Indicated Resolved Time C Diff 11/17/2022 11/17/2022 01/16/2023 1:16 AM CDT documented as of this encounter Care Teams Litharge Mill Operator Relationship Specialty Start Date End Date Shant Ballesteros Jr., MD [address] [place] [address] PCP - General Family Practice 01/19/14 documented as of this encounter
--- OUTSIDE RECORDS SUMMARY | 2025-05-14 15:59 | XMS_ITS | Patient Health Record ---
Author Organization [facility] Address [address] [place] [address] Care Team Providers Care Outreach Rep Name Role Phone Kady Merrill Primary Care Provider Bala Wilson Unavailable [phone] KADY MERRILL Unavailable Unavailable Migration, Provider Unavailable Unavailable Miki Johnston Unavailable [phone] Tonya Woodruff Unavailable Allergies Allergen (clinical drug [...] Notes [place], [place] - [id number] Reviewed date:11/05/2024 02:44:16 PM Interpretation: Performing Lab: Notes/Report: Glucose 0 Bili 0 Ketones 0 Sp [place] 1.030 Blood 0 pH 5.5 Protein 1+ [...] IM Intramuscular 08/04/2020 Administered Influenza (whole), CPT 36190 Inactive Unknown 08/12/2018 Administered Pneumococcal polysaccharide PPV23 [...] W/U Status Risk Notes Problem 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 Problem Calculus of kidney (97748521) Calculus of kidney (N20.0) Active confirmed Problem Nephrolithiasis (00500161) Nephrolithiasis (N20.0) Active confirmed Problem Benign hypertension (87069134) Hypertension, benign (I10) Active confirmed Problem Sleep apnea (57348157) Sleep apnea in adult (G47.30) Active confirmed Problem Gout (37308462) Gout (M10.9) Active confirmed Problem Insomnia (685189633) Insomnia, unspecified type (G47.00) Active confirmed Problem Low libido (4202957) Low libido (R68.82) Active confirmed Problem Fatigue (49996926) Fatigue (R53.83) Active conf irmed Problem Atrial fibrillation (44151942) Atrial fibrillation, unspecified type (I48.91) Active confirmed Problem Seasonal allergy (961136556) Seasonal allergies (J30.2) Active confirmed Problem Hypertension (27958270) Hypertension (I10) Active confirmed Problem Asthma without statu s asthmaticus (28557944) Uncomplicated asthma, unspecified asthma severity, unspecified whether persistent (J45.909) Active confirmed Problem Macrocytosis (17157575) Macrocytosis (D75.89) Active confirmed Problem Obstructive sleep apnea syndrome (05264798) Obstructive sleep apnea (adult) (pediatric) (327.23) 2016 Active confirmed Ramon-98 [id number]- Problem Lumbosacral spondylosis without myelopathy (26388176) 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 Active confirmed [id number] [id number]- Problem Erectile dysfunction (251760227) Erectile dysfunction (302.72) 2013 Active confirmed Ramon-[id number] [id number]- Problem Adjustment disorder with depressed mood (06857444) Adjustment disorder with depressed mood (309.0) 2009 Problem resolved confirmed [id number]- Problem Hand foot and mouth disease (516800389) Hand, foot, and mouth disease (074.3) 2012 Problem resolved confirmed Ramon-98 [id number]- Problem Sebaceous cyst (746401469) Sebaceous cyst (706.2) 2013 Problem resolved confirmed Ramon-[id number] [id number]- Problem Seborrhea (7169621396) Seborrhea (706.3) 2013 Problem resolved confirmed Ramon-[id number] [id number]- Problem Pressure ulcer, other site (707.09) 2017 Problem resolved confirmed Ramon-[id number] [id number]- Problem Fever (460231620) Fever, unspeci fied (780.60) 2011 Problem resolved confirmed Ramon-[id number] [id number]- Problem Palpitations (30694058) Palpitations (785.1) 2012 Problem resolved confirmed Ramon-[id number] [id number]- Problem Heartburn (07505131) Heartburn (787.1) 2014 Problem resolved confirmed Ramon-98 [id number]- Problem Screening for malignant neoplasm of prostate (154447781) Screening for prostate cancer (V76.44) 2017 Problem resolved confirmed Ramon-98 [id number]- Problem Spasm (15261455) Muscle spasm (728.85) 2012 Problem resolved confirmed Ramon-98 [id number]- Problem Androgen deficiency (54212650) Testosterone deficiency (257.2) 2013 Problem resolved confirmed Ramon-[id number] [id number]- Problem Rash (204890966) Rash (782.1) 2010 Problem resolved confirmed Ramon-98 [id number]- Problem Depression (783597947) Depression (311) 2010 Problem resolved confirmed Ramon-98 [id number]- Problem Dizziness (324589504) Dizziness (780.4) 0 2010 Problem resolved confirmed Ramon-98 [id number]- Problem Ventricular tachycardia (00526142) Ventricular tachycardia (427.1) 2007 Problem resolved confirmed Ramon-98 [id number]- Problem Hypercholesterolemia (71713946) Hypercholesterolemia (272.0) 2012 Problem resolved confirmed Ramon-98 [id number]- Problem Memory loss (47582444) Memory loss (780.9) 2014 Problem resolved confirmed Ramon-98 [id number]- Problem 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) 2017 Problem resolved confirmed Ramon-98 [id number]- Problem Shortness of breath (513458825) Shortness of breath (786.09) 2016 Problem resolved confirmed Ramon-98 [id number]- Problem Shoulder pain (45693429) Shoulder pain (719.41) 2013 Problem resolved confirmed Ramon-98 [id number]- Problem Disorder of hematopoietic system (17540820) Abnormal findings on blood examination, NEC (790.99) 2013 Problem resolved confirmed Ramon-98 [id number]- Problem Angina (844510260) Angina (413.9) 2010 Problem resolved confirmed Ramon-98 [id number]- Problem 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) 2011 Problem resolved confirmed Ramon-98 [id number]- Problem Disorder of hematopoietic system (77954681) Other abnormal findings on blood examination (790.99) 2015 Problem resolved confirmed Ramon-98 [id number]- Problem Disorder of hematopoietic system (04594898) Other abnormal laboratory result on blood (790.99) 2007 Problem resolved confirmed Ramon-98 [id number]- Problem Atypical mole syndrome (046958615) Atypical mole (238.2) 2008 Problem resolved confirmed Ramon-98 [id number]- Problem Chest pain (20448838) Chest pain (786.51) 2014 Problem resolved confirmed Ramon-98 5911- Problem Depressive disorder (18688243) Depressive disorder not elsewhere classified (311) 2014 Problem resolved confirmed Ramon-98 5911- Problem Generalized abdomina l pain (409096229) Generalized abdominal pain (789.07) 2008 Problem resolved confirmed Ramon-98 [id number]- Problem Lab: Used to mat ch unlinked laboratory orders (V92) 2014 Problem resolved confirmed Ramon-98 5911- Problem Impaired fasting glycaemia (790674631) Elevated fasting glucose (790.21) 2014 Problem resolved confirmed Ramon-98 5911- Problem Hemoglobinopathy (35135090) Elevated hematocrit (282.7) 2014 Problem resolved confirmed Ramon-98 5911- Problem Abnormal chest sound s (46689268071663) Egophany (786.7) 2016 Problem resolved confirmed Ramon-98 5911- Problem Insomnia (505282174) Insomnia (307.41) 2012 Problem resolved confirmed Ramon-98 5911- Problem Pain in limb (46112250) Leg pain (729.5) 2010 Problem resolved confirmed Ramon-98 5911- Problem Rib pain (851634052) Rib pain (786.50) 2013 Problem resolved confirmed Ramon-98 5911- Problem General examination of patient (389360685) Annual exam (V70.0) 2007 Problem resolved confirmed Ramon-98 5911- Problem Staphylococcal infectious disease (44213725) Staph infection (041.19) 2015 Problem resolved confirmed Ramon-98 5911- Problem Heart disease (64769252) Asymmetrical cardiac hypertrophy (429.9) 2007 Problem resolved confirmed Ramon-98 5911- Problem Obstructive sleep apnea (30251977) Obstructive sleep apnea (780.57) 2014 Problem resolved confirmed Ramon-98 5911- Problem Stress (154729707) Stress (300.02) 2008 Problem resolved confirmed Ramon-98 5911- Problem Acute upper respiratory infection (28006309) Acute upper respiratory infection of multiple sites (465.8) 2018 Problem resolved confirmed Ramon-98 5911- Problem Congestion (44950440) Congestion (477.9) 2007 Problem resolved confirmed Ramon-98 5911- Problem Lumbar radiculopathy (651012392) Lumbar radiculopathy (722.10) 2010 Problem resolved confirmed Ramon-98 5911- Problem Acquired polycythemi a (38758235) Acquired polycythemia (289.0) 2016 Problem resolved confirmed Ramon-98 5911- Problem Acute sinusitis (21638864) Acute sinusitis (461.8) 2007 Problem resolved confirmed Ramon-98 5911- Problem Ankle pain (307693146) Ankle pain (719.47) 2013 Problem resolved confirmed Ramon-98 5911- Problem Heart murmur (89243978) Cardiac murmur (785.2) 2007 Problem resolved confirmed Ramon-98 5911- Problem Erythrocyte sedimentation rate raised (656491588) Elevated sed rate (ESR) (790.1) 2011 Problem resolved confirmed Ramon-98 5911- Problem Gynecomastia (4190287) Gynecomastia (611.1) 2015 Problem resolved confirmed Ramon-98 5911- Problem Thrombosed external hemorrhoids (82008166) Hemorrhoids, external thrombosed (455.4) 2017 Problem resolved confirmed Ramon-98 5911- Problem Disorder of lipid metabolism (627877420) Low HDL level (272.9) 2010 Problem resolved confirmed Ramon-98 5911- Problem Left ventricular hypertrophy (88642256) LVH (429.3) 2010 Problem resolved confirmed Ramon-98 5911- Problem Cellulitis and abscess of lower leg (196708659) Cellulitis of the leg (682.6) 2013 Problem resolved confirmed Ramon-98 5911- Problem Change in voice (457202282) Change in voice (784.49) 2013 Problem resolved confirmed Ramon-98 5911- Problem Acute upper respiratory infection (01765661) Upper respiratory illness (465.8) 2007 Problem resolved confirmed Ramon-98 5911- Problem Kidney stone (89817539) kidney stones (592.0) 2007 Problem resolved confirmed Ramon-98 5911- Problem Cramp in lower limb (401150583) Leg cramps (729.82) 2017 Problem resolved confirmed Ramon-98 5911- Problem Low back pain (725243900) Lower back pain (724.2) 2010 Problem resolved confirmed Ramon-98 5911- Problem Dry mouth (76885833) Dry mouth (527.7) 2014 Problem resolved confirmed Ramon-98 5911- Problem Essential hypertension (41476190) Essential hypertension (401.1) 2010 Problem resolved confirmed Ramon-98 5911- Problem Impacted cerumen (67088407) External cerumen impaction (380.4) 2011 Problem resolved confirmed Ramon-98 5911- Problem Laceration of foot (481916752) Laceration of foot (892.0) 2011 Problem resolved confirmed Ramon-98 5911- Problem Pedal edema (364071935) Pedal edema (782.3) 2014 Problem resolved confirmed Ramon-98 5911- Problem Synovial cyst (873230493) Synovial cyst, NOS (727.40) 2017 Problem resolved confirmed Ramon-98 5911- Problem Thoracic back pain (636903168) Upper back pain (724.5) 2008 Problem resolved confirmed Ramon-98 5911- Problem Seborrheic keratosis (167428060) Seborrheic keratosis, other (702.19) 2015 Problem resolved confirmed Ramon-98 5911- Vital Signs Heart Rate 94 /min 11/05/2024 Temperature 97.73 degrees Fahrenheit 11/05/2024 Blood pressure diastolic 64 mm Hg 11/05/2024 Height-cm 193.04 cm 11/05/2024 Weight-kg 130.45 kg 11/05/2024 Height 76.00 in 11/05/2024 Blood pressure systolic 101 mm Hg 11/05/2024 Weight 287.6 lbs 11/05/2024 BMI 35 kg/m2 11/05/2024 Encounters Encounter Location Date Provider Diagnosis [facility] [address] [place] [address] [address] [place] [address] 11/05/2024 Tonya Woodruff Hypertension I10 ; Testicular hypofunction E29.1 ; Nephrolithiasis N20.0 ; Fatigue R53.83 and Low libido R68.82 Migrated_Facility 0 0 07/25/2024 Provider Migration Migrated_Facility 0 0 07/26/2024 Provider Migration [facility] [address] [place] [address] [address] [place] [address] 06/15/2024 Miki Vickie Calculus of kidney N20.0 [facility] [address] [place] [address] 06/19/2024 Miki Johnston Testicular hypofunct ion E29.1 [facility] [address] [place] [address] 07/03/2024 Miki Johnston Testicular hypofunct ion E29.1 [facility] [address] [place] [address] 07/09/2024 Miki Johnston Testicular hypofunct ion E29.1 [facility] [address] [place] [address] 09/25/2024 Miki Shinsay [facility] [address] [place] [address] 09/25/2024 Miki Johnston [facility] [address] [place] [address] 11/05/2024 Miki Johnston Testicular hypofunct ion E29.1 [facility] [address] [place] [address] 11/27/2024 [facility] [address] [place] [address] 12/11/2024 Tonya TrentMorales [facility] [address] [place] [address] 05/05/2025 Miki Johnston [facility] [address] [place] [address] 05/05/2025 Miki Shinsay [facility] [address] [place] [address] 05/05/2025 Miki Johnston Assessments Encounter Date Diagnosis (ICD Code) Assessment Notes Treatment Notes Treatment Clinical Notes Section Notes 06/19/2024 Testicular hypofunction (ICD-10 - E29.1) 07/03/2024 Testicular hypofunction (ICD-10 - E29.1) 07/09/2024 Testicular hypofunction (ICD-10 - E29.1) 11/05/2024 Hypertension (ICD-10 - I10) Treated by PCP 11/05/2024 Testicular hypofunction (ICD-10 - E29.1) 11/05/2024 Testicular [...] or behavior. Persistent or severe side effects. 06/15/2024 Calculus of kidney (ICD-10 - N20.0) 11/05/2024 Nephrolithiasis (ICD-10 - N20.0) Have imaging completed if ordered for you If you are having the symptoms below, with fever and chills, uncontrolled pain, contact office or go to ER *Kidney stones Symptoms Severe pain in the side and back, below the ribs. Pain that radiates to the lower abdomen and groin. Pain during urination [place], red, or brown urine. Nausea and Vomiting [...] to help pass the stone. Pain Management: [id number] pain relievers like ibuprofen or acetaminophen. Medications: [...] Name Order Date CBC w\ Auto Diff [id number] 06/15/2024 CBC w\ Auto Diff 57033 06/19/2024 Comprehensive Metabolic Panel (CMP) 8005 3 06/15/2024 Comprehensive Metabolic Panel (CMP) 8005 3 06/19/2024 Estradiol Level 87810 06/19/2024 Estradiol Level 15520 06/15/2024 Testosterone Total 52096 06/15/2024 Testosterone Total 14837 06/19/2024 Abdomen AP-32073 06/15/2024 Future Test Test Name Order Date CBC w\ Auto Diff 04631 03/30/2025 Comprehensive Metabolic Panel (CMP) 8005 3 03/30/2025 Estradiol Level 75475 03/30/2025 PSA Diagnostic--79766 03/30/2025 Testosterone Total 25700 03/30/2025 Insurance Providers Payer Name Payer Address Payer Phone Subscriber Number Group Number Insured Name Patient Relationship to Insured Coverage Start Date Coverage End Date [place] [employer] [address] [place] [address] [id number] Charan Smith Self - patient is the insured Medical (General) History Medical History History ICD Code Asymmetrical cardiac hypertrophy Hypertension Hypercholesterolemia Sleep apnea Osteoarthritis Testosterone deficiency Erectile dysfunction Depression OTHER MEDICAL PROVIDERS Grab Hooker- Dr. Orourke Pain management- Dr. Maldonado Urologist- Dr. Cage Assistant Shift Supervisor - Dr. Bala Juárez Thyroid tumor, benign 09/2020 Electrocution; 02/2020 Asthma CKD New onset of A-fib Surgical History Surgery Date(Month/Year) Fracture of wrist; 2004 Foot; left 2013 L4-L5 Fusion Hospitalization History Reason Date(Month/Year) New onset Afib 11/07/20 Covid 09/2020
--- OUTSIDE RECORDS SUMMARY | 2025-05-14 15:59 | XMS_ITS | Encounter Summary ---
Author Organization [facility] Address [address] [place] [address] Care Team Providers Care Optical Glass Wet Inspector Name Role Phone Favian Maldonado MD, Shant Humphreys Primary Care Provider Encounter Details Date Type Department Care Team (Late st Contact Info) Description 11/19/2022 Lab Requisition [facility] [address] [place] [address] Low Amaya, DO [address] [place] [address] Social History Tobacco Use Types Packs/Day Years Used Date Smoking Tobacco: Never Assessed Sex and Gender Information Value Date Recorded Sex Assigned at Not on file Legal 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 MEDICAL RECORD ADMINISTRATOR Gender Identity Not on file Sexual Orientation Not on file documented as of this encounter Plan of Treatment Not on file documented as of this encounter Procedures Procedure Name Priority Date/Time Associated Diagnosis Comments CALCIUM IONIZED Routine 11/19/2022 3:45 PM MEDICAL RECORD ADMINISTRATOR documented in this encounter Results * CALCIUM IONIZED (11/19/2022 3:45 PM MEDICAL RECORD ADMINISTRATOR) CALCIUM IONIZED 5.2 4.8 - 5.6 mg/dL 11/21/2022 10:53 AM MEDICAL RECORD ADMINISTRATOR [facility] Blood Collection / Unknown 11/19/2022 3:45 PM MEDICAL RECORD ADMINISTRATOR 11/20/2022 7:56 AM MEDICAL RECORD ADMINISTRATOR Narrative [facility] - 11/21/2022 10:53 AM MEDICAL RECORD ADMINISTRATOR Performing Organization Information: Site ID: [id number] Name: [facility] Address: [address] [address] Director: Andrew Alvarado MD us Low Amaya DO CHEMISTRY ORDERABLES Final R esult [facility] documented in this encounter Visit Diagnoses Not on filedocumented in this encounter Additional Health Concerns Infection Onset Date Last Indicated Resolved Time C Diff 11/17/2022 11/17/2022 01/16/2023 1:16 AM CDT documented as of this encounter Care Teams Optical Glass Wet Inspector Relationship Specialty Start Date End Date Shant Ballesteros Jr., MD [address] [place] [address] PCP - General Family Practice 01/19/14 documented as of this encounter
--- OUTSIDE RECORDS SUMMARY | 2025-05-14 15:59 | XMS_ITS | Clinical Summary ---
Author Organization [facility] Address [address] Lara: Epic Prelude ADT JUVENAL MAHARAJ [address] Care Team Providers Care Auto Customize Painter Name Role Phone Favian Maldonado MD, Shant [...] 01/04/20 23 Active naloxone (NARCAN) 4 mg/spray [place], Non-Aerosol EMERGENCY USE ONLY: Administer 1 spray [...] 12/21/2022 Immunizations Immunization Administration Dates Next Due (Emotient)(12 YR UP) COVID-19 VACCINE - EMERGENCY USE AUTHORIZATION, MRNA, [id number](PF) 30 MCG/0.3 ML IM SUSP 11/09/2022 (PNEUMOVAX [...] on file Legal 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 TRAVELING SECRETARY Gender Identity Not on file Sexual [...] Advance Directives For more information, please contact: [phone] * Full Code (Latest Code Status on File) Date Activated Date Inactivated Comments 12/21/2022 9:43 PM 01/03/2023 3:13 PM Care Teams Auto Customize Painter Relationship Specialty Start Date End Date Shant Ballesteros Jr., MD [address] [place] [address] PCP - General Family Practice 01/19/14
--- OUTSIDE RECORDS SUMMARY | 2025-05-14 15:59 | XMS_ITS | Encounter Summary ---
Author Organization [facility] Address [address] [place] [address] Care Team Providers Care Meteorology Professor Name Role Phone Favian Maldonado MD, Shant Humphreys Primary Care Provider Encounter Details Date Type Department Care Team (Late st Contact Info) Description 11/19/2022 Lab Requisition [facility] [address] [place] [address] [place] [address] Low Amaya, DO [address] [place] [phone] Social History Tobacco Use Types Packs/Day Years Used Date Smoking Tobacco: Never Assessed Sex and Gender Information Value Date Recorded Sex Assigned at Not on file Legal 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 REPAIR TECH Gender Identity Not on file Sexual Orientation Not on file documented as of this encounter Plan of Treatment Not on file documented as of this encounter Procedures Procedure Name Priority Date/Time Associated Diagnosis Comments TRIGLYCERIDE Routine 11/19/2022 2:55 AM REPAIR TECH PHOSPHORUS Routine 11/19/2022 2:55 AM REPAIR TECH MAGNESIUM LEVEL Routine 11/19/2022 2:55 AM REPAIR TECH COMPREHENSIVE METABOLIC PANEL Routine 11/19/2022 2:55 AM REPAIR TECH documented in this encounter Results * TRIGLYCERIDE (11/19/2022 2:55 AM REPAIR TECH) TRIGLYCERIDE 126 <150 mg/dL 11/19/2022 6:43 AM REPAIR TECH [facility] Blood Collection / Unknown 11/19/2022 2:55 AM REPAIR TECH 11/19/2022 6:22 AM REPAIR TECH Narrative [facility] - 11/19/2022 6:43 AM REPAIR TECH TRIGLYCERIDES mg/dL Normal < 150 Borderline High 150 - 199 High 200 - 499 Very High >= 500 Based on AHA/NCEP Guidelines. Low Amaya DO CHEMISTRY ORDERABLES Final R esult Performing Organization Address [facility] Co de Phone Number [facility] CLIA # [id number] [address] [facility] [place] [address] * PHOSPHORUS (11/19/2022 2:55 AM REPAIR TECH) PHOSPHORUS 4.4 2.5 - 4.5 mg/dL 11/19/2022 6:43 AM REPAIR TECH [facility] Blood Collection / Unknown 11/19/2022 2:55 AM REPAIR TECH 11/19/2022 6:22 AM REPAIR TECH Low Amaya DO CHEMISTRY ORDERABLES Final R esult Performing Organization Address [facility] Co de Phone Number [facility] CLIA # [id number] [address] [address] * MAGNESIUM LEVEL (11/19/2022 2:55 AM REPAIR TECH) MAGNESIUM 1.9 1.6 - 2.4 mg/dL 11/19/2022 6:43 AM REPAIR TECH [facility] Blood Collection / Unknown 11/19/2022 2:55 AM REPAIR TECH 11/19/2022 6:22 AM REPAIR TECH Low Amaya DO CHEMISTRY ORDERABLES Final R esult Performing Organization Address [facility] Co de Phone Number [facility] CLIA # [id number] [address] [address] [place] [address] * (ABNORMAL) COMPREHENSIVE METABOLIC PANEL (11/19/2022 2:55 AM REPAIR TECH) SODIUM 144 136 - 145 mmol/L 11/19/2022 6:43 AM [facility] POTASSIUM 3.5 3.5 - 5.1 mmol/L 11/19/2022 6:43 AM [facility] CHLORIDE 105 98 - 107 mmol/L 11/19/2022 6:43 AM [facility] CO2 32(H) 22 - 29 mmol/L 11/19/2022 6:43 AM [facility] CALCIUM 9.1 8.8 - 10.2 mg/dL 11/19/2022 6:43 AM [facility] BUN 22 8 - 23 mg/dL 11/19/2022 6:43 AM [facility] CREATININE 0.99 0.67 - 1.17 mg/dL 11/19/2022 6:43 AM [facility] GLUCOSE 169(H) 74 - 99 mg/dL 11/19/2022 6:43 AM [facility] TOTAL PROTEIN 6.6 6.4 - 8.3 g/dL 11/19/2022 6:43 AM [facility] ALBUMIN 3.0(L) 3.5 - 5.2 g/dL 11/19/2022 6:43 AM [facility] BILIRUBIN TOTAL 0.2 0.2 - 1.0 mg/dL 11/19/2022 6:43 AM [facility] ALKALINE PHOSPHATASE 64 40 - 129 U/L 11/19/2022 6:43 AM [facility] AST 13 10 - 50 U/L 11/19/2022 6:43 AM [facility] ALT 8 <=50 U/L 11/19/2022 6:43 AM [facility] GFR >60 >=60 mL/min/1.7 3 sq meter 11/19/2022 6:43 AM REPAIR TECH [facility] Comment:eGFR calculated with 2020 CKD-EPI equation. Vegetarian diet, extremely high or low muscle mass, and may affect results. Cystatin C with Glomerular Filtration Rate is a suitable alternative for these patients. ANION GAP 7(L) 9 - 20 mmol/L 11/19/2022 6:43 AM REPAIR TECH [facility] Blood Collection / Unknown 11/19/2022 2:55 AM REPAIR TECH 11/19/2022 6:22 AM REPAIR TECH us Low Amaya DO CHEMISTRY ORDERABLES Final R esult [facility] CLIA # [id number] [address] [address] documented in this encounter Visit Diagnoses Not on filedocumented in this encounter Additional Health Concerns Infection Onset Date Last Indicated Resolved Time C Diff 11/17/2022 11/17/2022 01/16/2023 1:16 AM CDT documented as of this encounter Care Teams Meteorology Professor Relationship Specialty Start Date End Date Shant Ballesteros Jr., MD [address] [place] [address] PCP - General Family Practice 01/19/14 documented as of this encounter
--- OUTSIDE RECORDS SUMMARY | 2025-05-14 15:59 | XMS_ITS | Encounter Summary ---
Author Organization [employer] Address [address] [place] [address] Care Team Providers Care Presiding Judge Name Role Phone Favian Maldonado MD, Shant Humphreys Primary Care Provider Encounter Details Date Type Department Care Team (Late st Contact Info) Description 11/25/2022 Lab Requisition [facility] Laboratory Services [address] [place] [address] Esther Sarmiento MD [address] [place] [address] Social History Tobacco Use Types Packs/Day Years Used Date Smoking Tobacco: Never Assessed Sex and Gender Information Value Date Recorded Sex Assigned at Not on file Legal 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 AGRICULTURAL TECHNICAL OFFICER Gender Identity Not on file Sexual Orientation Not on file documented as of this encounter Plan of Treatment Not on file documented as of this encounter Procedures Procedure Name Priority Date/Time Associated Diagnosis Comments BRAIN NATRIURETIC PEPTIDE, BNP OR PROBNP Routine 11/25/2022 1:40 AM AGRICULTURAL TECHNICAL OFFICER documented in this encounter Results * (ABNORMAL) BRAIN NATRIURETIC PEPTIDE, BNP OR PROBNP (11/25/2022 1:40 AM AGRICULTURAL TECHNICAL OFFICER) PROBNP, N TERMINAL 2,221(H) 0 - 125 pg/mL 11/25/2022 6:17 AM AGRICULTURAL TECHNICAL OFFICER [facility] Blood Collection / Unknown 11/25/2022 1:40 AM AGRICULTURAL TECHNICAL OFFICER 11/25/2022 6:02 AM AGRICULTURAL TECHNICAL OFFICER Esther Sarmiento MD CHEMISTRY ORDERABLES Final Resul t Performing Organization Address City/State/[facility] Co de Phone Number [facility] # [id number] [address] [address] [place] [address] documented in this encounter Visit Diagnoses Not on filedocumented in this encounter Additional Health Concerns Infection Onset Date Last Indicated Resolved Time C Diff 11/17/2022 11/17/2022 01/16/2023 1:16 AM CDT documented as of this encounter Care Teams Presiding Judge Relationship Specialty Start Date End Date Shant Ballesteros Jr., MD [address] [place] [address] PCP - General Family Practice 01/19/14 documented as of this encounter
--- OUTSIDE RECORDS SUMMARY | 2025-05-14 15:59 | XMS_ITS | Clinical Summary ---
Author Organization [facility] Address [address] [place] [address] Phone Care Team Providers Care Sharepoint Solutions Architect Name Role Phone Favian Maldonado MD, [...] (1 - 1-dose 75+ series) 2030 Insurance [employer] [id number] HMO Care Teams Sharepoint Solutions Architect Relationship Specialty Start Date End Date Shant Ballesteros Jr., MD [address] [place] [address] PCP - General Family Practice 01/19/14
--- OUTSIDE RECORDS SUMMARY | 2025-05-14 15:59 | XMS_ITS | Encounter Summary ---
Author Organization [employer] Address [address] [place] [address] Care Team Providers Care Research Animal Facility Supervisor Name Role Phone Favian Maldonado MD, Shant Humphreys Primary Care Provider Encounter Details Date Type Department Care Team (Late st Contact Info) Description 11/26/2022 Lab Requisition [facility] Laboratory Services [address] [place] [address] Low Amaya, DO [address] [place] [address] Social History Tobacco Use Types Packs/Day Years Used Date Smoking Tobacco: Never Assessed Sex and Gender Information Value Date Recorded Sex Assigned at Not on file Legal 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 CHEMICAL PROCESS ANALYST Gender Identity Not on file Sexual Orientation Not on file documented as of this encounter Plan of Treatment Not on file documented as of this encounter Procedures Procedure Name Priority Date/Time Associated Diagnosis Comments CBC WITH DIFFERENTIAL Routine 11/26/2022 1:15 AM CHEMICAL PROCESS ANALYST TRIGLYCERIDE Routine 11/26/2022 1:15 AM CHEMICAL PROCESS ANALYST PHOSPHORUS Routine 11/26/2022 1:15 AM CHEMICAL PROCESS ANALYST MAGNESIUM LEVEL Routine 11/26/2022 1:15 AM CHEMICAL PROCESS ANALYST COMPREHENSIVE METABOLIC PANEL Routine 11/26/2022 1:15 AM CHEMICAL PROCESS ANALYST documented in this encounter Results * (ABNORMAL) TRIGLYCERIDE (11/26/2022 1:15 AM CHEMICAL PROCESS ANALYST) TRIGLYCERIDE 172(H) <150 mg/dL 11/26/2022 6:58 AM [facility] Blood Collection / Unknown 11/26/2022 1:15 AM CHEMICAL PROCESS ANALYST 11/26/2022 6:01 AM CHEMICAL PROCESS ANALYST Narrative [facility] - 11/26/2022 6:58 AM CHEMICAL PROCESS ANALYST TRIGLYCERIDES mg/dL Normal < 150 Borderline High 150 - 199 High 200 - 499 Very High >= 500 Based on AHA/NCEP Guidelines. Low Amaya DO CHEMISTRY ORDERABLES Final R psychiatric hospital Performing Organization Address City/[facility]/ZIP Co de Phone Number [facility] CLIA # [id number] [address] [id number] * PHOSPHORUS (11/26/2022 1:15 AM CHEMICAL PROCESS ANALYST) PHOSPHORUS 3.2 2.5 - 4.5 mg/dL 11/26/2022 6:58 AM [facility] Blood Collection / Unknown 11/26/2022 1:15 AM CHEMICAL PROCESS ANALYST 11/26/2022 6:01 AM CHEMICAL PROCESS ANALYST Low Amaya DO CHEMISTRY ORDERABLES Final R esult [facility] CLIA # [id number] [address] [place], [place] [address] * MAGNESIUM LEVEL (11/26/2022 1:15 AM CHEMICAL PROCESS ANALYST) MAGNESIUM 2.0 1.6 - 2.4 mg/dL 11/26/2022 6:58 AM CHEMICAL PROCESS ANALYST [facility] Blood Collection / Unknown 11/26/2022 1:15 AM CHEMICAL PROCESS ANALYST 11/26/2022 6:01 AM CHEMICAL PROCESS ANALYST us Low Amaya DO CHEMISTRY ORDERABLES Final R esult [facility] CLIA # [id number] [address] [facility] [facility] [place] [address] * (ABNORMAL) CBC WITH DIFFERENTIAL (11/26/2022 1:15 AM CHEMICAL PROCESS ANALYST) [facility] WBC 6.1 4.8 - 10.8 K/uL 11/26/2022 6:14 AM [facility] RBC 2.61(L) 4.60 - 6.20 M/uL 11/26/2022 6:14 AM [facility] HEMOGLOBIN 7.8(L) 14.0 - 18.0 g/dL 11/26/2022 6:14 AM [facility] HEMATOCRIT 26.5(L) 41.0 - 53.0 % 11/26/2022 6:14 AM [facility] MCV 101.5 84.0 - 103.0 fL 11/26/2022 6:14 AM [facility] MCH 29.9 27.0 - 34.0 pg 11/26/2022 6:14 AM [facility] MCHC 29.4(L) 30.0 - 35.0 g/dL 11/26/2022 6:14 AM [facility] RDW 18.2(H) 11.0 - 14.5 % 11/26/2022 6:14 AM [facility] RDW-STDEV 66.1(H) 37.0 - 54.0 fL 11/26/2022 6:14 AM [facility] PLATELETS 222 140 - 440 K/uL 11/26/2022 6:14 AM [facility] MPV 10.6 8.9 - 12.8 fL 11/26/2022 6:14 AM [facility] NEUTROPHILS 63 42 - 75 % 11/26/2022 6:14 AM [facility] LYMPHOCYTES 18(L) 24 - 44 % 11/26/2022 6:14 AM [facility] MONOCYTES 13(H) 2 - 10 % 11/26/2022 6:14 AM [facility] EOSINOPHILS 5 0 - 7 % 11/26/2022 6:14 AM [facility] BASOPHILS 1 0 - 1 % 11/26/2022 6:14 AM [facility] IMMATURE GRANULOCYTES 1 0 - 2 % 11/26/2022 6:14 AM [facility] NEUTROPHIL ABSOLUTE 3.84 2.00 - 8.00 K/uL 11/26/2022 6:14 AM [facility] LYMPHOCYTE ABSOLUTE 1.09(L) 1.20 - 4.00 K/uL 11/26/2022 6:14 AM [facility] MONOCYTE ABSOLUTE 0.79(H) 0.10 - 0.60 K/uL 11/26/2022 6:14 AM [facility] EOSINOPHIL ABSOLUTE 0.32 0.00 - 0.70 K/uL 11/26/2022 6:14 AM [facility] BASOPHILS ABSOLUTE 0.04 0.00 - 0.20 K/uL 11/26/2022 6:14 AM [facility] IMMATURE GRANULOCYTES ABSOLUTE 0.03 0.00 - 0.10 K/uL 11/26/2022 6:14 AM [facility] Blood Collection / Unknown 11/26/2022 1:15 AM CHEMICAL PROCESS ANALYST 11/26/2022 6:01 AM [facility] us Low Amaya DO HEMATOLOGY ORDERABLES Final Result [facility] CLIA # [id number] [facility] [address] [place] [address] * (ABNORMAL) COMPREHENSIVE METABOLIC PANEL (11/26/2022 1:15 AM CHEMICAL PROCESS ANALYST) [facility] SODIUM 140 136 - 145 mmol/L 11/26/2022 6:58 AM [facility] POTASSIUM 3.9 3.5 - 5.1 mmol/L 11/26/2022 6:58 AM [facility] CHLORIDE 103 98 - 107 mmol/L 11/26/2022 6:58 AM [facility] CO2 30(H) 22 - 29 mmol/L 11/26/2022 6:58 AM [facility] CALCIUM 9.3 8.8 - 10.2 mg/dL 11/26/2022 6:58 AM [facility] BUN 34(H) 8 - 23 mg/dL 11/26/2022 6:58 AM [facility] CREATININE 1.08 0.67 - 1.17 mg/dL 11/26/2022 6:58 AM [facility] GLUCOSE 129(H) 74 - 99 mg/dL 11/26/2022 6:58 AM [facility] TOTAL PROTEIN 6.4 6.4 - 8.3 g/dL 11/26/2022 6:58 AM [facility] ALBUMIN 2.9(L) 3.5 - 5.2 g/dL 11/26/2022 6:58 AM [facility] BILIRUBIN TOTAL 0.3 0.2 - 1.0 mg/dL 11/26/2022 6:58 AM [facility] ALKALINE PHOSPHATASE 86 40 - 129 U/L 11/26/2022 6:58 AM [facility] AST 14 10 - 50 U/L 11/26/2022 6:58 AM [facility] ALT 10 <=50 U/L 11/26/2022 6:58 AM [facility] GFR >60 >=60 mL/min/1.7 3 sq meter 11/26/2022 6:58 AM [facility] Comment:eGFR calculated with 2020 CKD-EPI equation. Vegetarian diet, extremely high or low muscle mass, and may affect results. Cystatin C with Glomerular Filtration Rate is a suitable alternative for these patients. ANION GAP 7(L) 9 - 20 mmol/L 11/26/2022 6:58 AM CHEMICAL PROCESS ANALYST [facility] Blood Collection / Unknown 11/26/2022 1:15 AM CHEMICAL PROCESS ANALYST 11/26/2022 6:01 AM CHEMICAL PROCESS ANALYST Low Amaya DO CHEMISTRY ORDERABLES Final R esult [facility] CLIA # [id number] [facility] [address] documented in this encounter Visit Diagnoses Not on filedocumented in this encounter Additional Health Concerns Infection Onset Date Last Indicated Resolved Time C Diff 11/17/2022 11/17/2022 01/16/2023 1:16 AM CDT documented as of this encounter Care Teams Research Animal Facility Supervisor Relationship Specialty Start Date End Date Shant Ballesteros Jr., MD [address] [place] [address] PCP - General Family Practice 01/19/14 documented as of this encounter
--- OUTSIDE RECORDS SUMMARY | 2025-05-14 15:59 | XMS_ITS | Encounter Summary ---
Author Organization [employer] [facility] Address [address] [place] [address] Care Team Providers Care Roller Mill Operator Name Role Phone Favian Maldonado MD, Shant Humphreys Primary Care Provider Encounter Details Date Type Department Care Team (Late st Contact Info) Description 11/17/2022 Lab Requisition [facility] Laboratory Services [address] [place] [address] Andre Mary, MADHU [address] [facility] [address] [place] [address] Social History Tobacco Use Types Packs/Day Years Used Date Smoking Tobacco: Never Assessed Sex and Gender Information Value Date Recorded Sex Assigned at Not on file Legal 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 WARP YARN SORTER Gender Identity Not on file Sexual Orientation Not on file documented as of this encounter Plan of Treatment Not on file documented as of this encounter Procedures Procedure Name Priority Date/Time Associated Diagnosis Comments CBC WITH DIFFERENTIAL Stat 11/17/2022 4:30 AM WARP YARN SORTER TRIGLYCERIDE Stat 11/17/2022 4:30 AM WARP YARN SORTER PHOSPHORUS Stat 11/17/2022 4:30 AM WARP YARN SORTER MAGNESIUM LEVEL Stat 11/17/2022 4:30 AM WARP YARN SORTER COMPREHENSIVE METABOLIC PANEL Routine 11/17/2022 4:30 AM WARP YARN SORTER documented in this encounter Results * TRIGLYCERIDE (11/17/2022 4:30 AM WARP YARN SORTER) TRIGLYCERIDE 103 <150 mg/dL 11/17/2022 5:51 AM WARP YARN SORTER [facility] Blood Collection / Unknown 11/17/2022 4:30 AM WARP YARN SORTER 11/17/2022 5:31 AM WARP YARN SORTER Narrative [facility] - 11/17/2022 5:51 AM WARP YARN SORTER TRIGLYCERIDES mg/dL Normal < 150 Borderline High 150 - 199 High 200 - 499 Very High >= 500 Based on AHA/NCEP Guidelines. Andre Mary SUPERVISOR PRINTING AND STAMPING CHEMISTRY ORDERABLES Fin al Result Performing Organization Address City/[facility]/ZIP Co de Phone Number [facility] CLIA # [id number] [address] [place], [place] [id number] * PHOSPHORUS (11/17/2022 4:30 AM WARP YARN SORTER) Pathologist [facility] PHOSPHORUS 3.2 2.5 - 4.5 mg/dL 11/17/2022 5:51 AM WARP YARN SORTER [facility] Blood Collection / Unknown 11/17/2022 4:30 AM WARP YARN SORTER 11/17/2022 5:31 AM WARP YARN SORTER Andre Mary SUPERVISOR PRINTING AND STAMPING CHEMISTRY ORDERABLES Fin al Result [facility] CLIA # [id number] [address] [facility] [place], [place] [address] * MAGNESIUM LEVEL (11/17/2022 4:30 AM WARP YARN SORTER) MAGNESIUM 2.1 1.6 - 2.4 mg/dL 11/17/2022 5:51 AM WARP YARN SORTER [facility] Blood Collection / Unknown 11/17/2022 4:30 AM WARP YARN SORTER 11/17/2022 5:31 AM WARP YARN SORTER us Andre Mary NP CHEMISTRY ORDERABLES Fin al Result [facility] CLBRYANT # [id number] [address] [facility] [place] [address] * (ABNORMAL) CBC WITH DIFFERENTIAL (11/17/2022 4:30 AM WARP YARN SORTER) [facility] WBC 8.8 4.8 - 10.8 K/uL 11/17/2022 5:58 AM [facility] RBC 2.68(L) 4.60 - 6.20 M/uL 11/17/2022 5:58 AM [facility] HEMOGLOBIN 8.0(L) 14.0 - 18.0 g/dL 11/17/2022 5:58 AM [facility] HEMATOCRIT 27.6(L) 41.0 - 53.0 % 11/17/2022 5:58 AM [facility] MCV 103.0 84.0 - 103.0 fL 11/17/2022 5:58 AM [facility] MCH 29.9 27.0 - 34.0 pg 11/17/2022 5:58 AM [facility] MCHC 29.0(L) 30.0 - 35.0 g/dL 11/17/2022 5:58 AM [facility] RDW 18.1(H) 11.0 - 14.5 % 11/17/2022 5:58 AM [facility] RDW-STDEV 65.9(H) 37.0 - 54.0 fL 11/17/2022 5:58 AM [facility] PLATELETS 296 140 - 440 K/uL 11/17/2022 5:58 AM [facility] MPV 9.6 8.9 - 12.8 fL 11/17/2022 5:58 AM [facility] NEUTROPHILS 67 42 - 75 % 11/17/2022 5:58 AM [facility] LYMPHOCYTES 12(L) 24 - 44 % 11/17/2022 5:58 AM [facility] MONOCYTES 13(H) 2 - 10 % 11/17/2022 5:58 AM [facility] EOSINOPHILS 6 0 - 7 % 11/17/2022 5:58 AM [facility] BASOPHILS 1 0 - 1 % 11/17/2022 5:58 AM [facility] IMMATURE GRANULOCYTES 2 0 - 2 % 11/17/2022 5:58 AM [facility] NEUTROPHIL ABSOLUTE 5.91 2.00 - 8.00 K/uL 11/17/2022 5:58 AM [facility] LYMPHOCYTE ABSOLUTE 1.04(L) 1.20 - 4.00 K/uL 11/17/2022 5:58 AM [facility] MONOCYTE ABSOLUTE 1.10(H) 0.10 - 0.60 K/uL 11/17/2022 5:58 AM [facility] EOSINOPHIL ABSOLUTE 0.56 0.00 - 0.70 K/uL 11/17/2022 5:58 AM [facility] BASOPHILS ABSOLUTE 0.06 0.00 - 0.20 K/uL 11/17/2022 5:58 AM [facility] IMMATURE GRANULOCYTES ABSOLUTE 0.13(H) 0.00 - 0.10 K/uL 11/17/2022 5:58 AM [facility] Blood Collection / Unknown 11/17/2022 4:30 AM WARP YARN SORTER 11/17/2022 5:30 AM [facility] us Andre Mary SUPERVISOR PRINTING AND STAMPING HEMATOLOGY ORDERABLES Fi nal Result [facility] CLIA # [id number] [address] [address] [place], [place] [id number] * (ABNORMAL) COMPREHENSIVE METABOLIC PANEL (11/17/2022 4:30 AM WARP YARN SORTER) [facility] SODIUM 144 136 - 145 mmol/L 11/17/2022 5:51 AM [facility] POTASSIUM 3.8 3.5 - 5.1 mmol/L 11/17/2022 5:51 AM [facility] CHLORIDE 107 98 - 107 mmol/L 11/17/2022 5:51 AM [facility] CO2 34(H) 22 - 29 mmol/L 11/17/2022 5:51 AM [facility] CALCIUM 9.1 8.8 - 10.2 mg/dL 11/17/2022 5:51 AM [facility] BUN 20 8 - 23 mg/dL 11/17/2022 5:51 AM [facility] CREATININE 1.03 0.67 - 1.17 mg/dL 11/17/2022 5:51 AM [facility] GLUCOSE 151(H) 74 - 99 mg/dL 11/17/2022 5:51 AM [facility] TOTAL PROTEIN 6.5 6.4 - 8.3 g/dL 11/17/2022 5:51 AM [facility] ALBUMIN 2.8(L) 3.5 - 5.2 g/dL 11/17/2022 5:51 AM [facility] BILIRUBIN TOTAL 0.3 0.2 - 1.0 mg/dL 11/17/2022 5:51 AM [facility] ALKALINE PHOSPHATASE 69 40 - 129 U/L 11/17/2022 5:51 AM [facility] AST 12 10 - 50 U/L 11/17/2022 5:51 AM [facility] ALT 10 <=50 U/L 11/17/2022 5:51 AM [facility] GFR >60 >=60 mL/min/1.7 3 sq meter 11/17/2022 5:51 AM [facility] Comment:eGFR calculated with 2020 CKD-EPI equation. Vegetarian diet, extremely high or low muscle mass, and may affect results. Cystatin C with Glomerular Filtration Rate is a suitable alternative for these patients. ANION GAP 3(L) 9 - 20 mmol/L 11/17/2022 5:51 AM WARP YARN SORTER [facility] [employer] [facility] Blood Collection / Unknown 11/17/2022 4:30 AM WARP YARN SORTER 11/17/2022 5:31 AM WARP YARN SORTER Andre Mary SUPERVISOR PRINTING AND STAMPING CHEMISTRY ORDERABLES Fin al Result [facility] [employer] [facility] CLIA # [id number] [address] [address] [place] [address] documented in this encounter Visit Diagnoses Not on filedocumented in this encounter Additional Health Concerns Infection Onset Date Last Indicated Resolved Time C Diff 11/17/2022 11/17/2022 01/16/2023 1:16 AM CDT documented as of this encounter Care Teams Roller Mill Operator Relationship Specialty Start Date End Date Shant Ballesteros Jr., MD [address] [place] [address] PCP - General Family Practice 01/19/14 documented as of this encounter
--- OUTSIDE RECORDS SUMMARY | 2025-05-14 15:59 | XMS_ITS | Encounter Summary ---
Author Organization [employer] Address [address] [place] [address] Care Team Providers Care Shield Operator Name Role Phone Favian Maldonado MD, Shant Humphreys Primary Care Provider Encounter Details Date Type Department Care Team (Late st Contact Info) Description 11/23/2022 Lab Requisition [facility] Laboratory Services [address] [place] [address] Low Amaya, DO [address] [place] [phone] Social History Tobacco Use Types Packs/Day Years Used Date Smoking Tobacco: Never Assessed Sex and Gender Information Value Date Recorded Sex Assigned at Not on file Legal 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 TRAFFIC DIVISION COMMANDING OFFICER Gender Identity Not on file Sexual Orientation Not on file documented as of this encounter Plan of Treatment Not on file documented as of this encounter Procedures Procedure Name Priority Date/Time Associated Diagnosis Comments PHOSPHORUS Routine 11/23/2022 4:30 AM TRAFFIC DIVISION COMMANDING OFFICER MAGNESIUM LEVEL Routine 11/23/2022 4:30 AM TRAFFIC DIVISION COMMANDING OFFICER BASIC METABOLIC PANEL Routine 11/23/2022 4:30 AM TRAFFIC DIVISION COMMANDING OFFICER documented in this encounter Results * PHOSPHORUS (11/23/2022 4:30 AM TRAFFIC DIVISION COMMANDING OFFICER) PHOSPHORUS 4.1 2.5 - 4.5 mg/dL 11/23/2022 6:08 AM TRAFFIC DIVISION COMMANDING OFFICER [facility] Blood Collection / Unknown 11/23/2022 4:30 AM TRAFFIC DIVISION COMMANDING OFFICER 11/23/2022 5:49 AM TRAFFIC DIVISION COMMANDING OFFICER Low Amaya DO CHEMISTRY ORDERABLES Final R [facility] Performing Organization Address [facility]/ZIP Co de Phone Number [facility] CLIA # [id number] [address] [facility] [place] [address] * MAGNESIUM LEVEL (11/23/2022 4:30 AM TRAFFIC DIVISION COMMANDING OFFICER) MAGNESIUM 1.9 1.6 - 2.4 mg/dL 11/23/2022 6:[address] [facility] Blood Collection / Unknown 11/23/2022 4:30 AM TRAFFIC DIVISION COMMANDING OFFICER 11/23/2022 5:49 AM TRAFFIC DIVISION COMMANDING OFFICER Low Amaya DO CHEMISTRY ORDERABLES Final R esult Performing Organization Address [facility] Co de Phone Number [facility] CLIA # [id number] [address] [address] * (ABNORMAL) BASIC METABOLIC PANEL (11/23/2022 4:30 AM TRAFFIC DIVISION COMMANDING OFFICER) SODIUM 142 136 - 145 mmol/L 11/23/2022 6:08 AM [facility] [employer] [facility] POTASSIUM 4.3 3.5 - 5.1 mmol/L 11/23/2022 6:08 AM [facility] [employer] [facility] Comment:Slightly hemolyzed. Result may be falsely elevated. CHLORIDE 104 98 - 107 mmol/L 11/23/2022 6:[address] [facility] CO2 30(H) 22 - 29 mmol/L 11/23/2022 6:[address] [facility] CALCIUM 9.5 8.8 - 10.2 mg/dL 11/23/2022 6:[address] [facility] BUN 25(H) 8 - 23 mg/dL 11/23/2022 6:[address] [facility] CREATININE 0.92 0.67 - 1.17 mg/dL 11/23/2022 6:[address] [facility] GLUCOSE 135(H) 74 - 99 mg/dL 11/23/2022 6:[address] [facility] GFR >60 >=60 mL/min/1.7 3 sq meter 11/23/2022 6:[address] [facility] Comment:eGFR calculated with 2020 CKD-EPI equation. Vegetarian diet, extremely high or low muscle mass, and may affect results. Cystatin C with Glomerular Filtration Rate is a suitable alternative for these patients. ANION GAP 8(L) 9 - 20 mmol/L 11/23/2022 6:[address] [facility] Blood Collection / Unknown 11/23/2022 4:30 AM TRAFFIC DIVISION COMMANDING OFFICER 11/23/2022 5:49 AM TRAFFIC DIVISION COMMANDING OFFICER Low Amaya DO CHEMISTRY ORDERABLES Final R esult [facility] CLIA # [id number] [address] [place] [id number] documented in this encounter Visit Diagnoses Not on filedocumented in this encounter Additional Health Concerns Infection Onset Date Last Indicated Resolved Time C Diff 11/17/2022 11/17/2022 01/16/2023 1:16 AM CDT documented as of this encounter Care Teams Shield Operator Relationship Specialty Start Date End Date Shant Ballesteros Jr., MD [address] [place] [id number] PCP - General Family Practice 01/19/14 documented as of this encounter
--- OUTSIDE RECORDS SUMMARY | 2025-05-14 15:59 | XMS_ITS | Encounter Summary ---
Author Organization [facility] Address [address] [place] [address] Care Team Providers Care Assisted Living Care Manager Name Role Phone Favian Maldonado MD, Shant Humphreys Primary Care Provider Encounter Details Date Type Department Care Team (Late st Contact Info) Description 11/17/2022 Lab Requisition [facility] Laboratory Services [address] [place] [address] Cary Javier PA-C [address] [place] [address] Social History Tobacco Use Types Packs/Day Years Used Date Smoking Tobacco: Never Assessed Sex and Gender Information Value Date Recorded Sex Assigned at Not on file Legal 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 SOFTWARE DESIGN MANAGER Gender Identity Not on file Sexual Orientation Not on file documented as of this encounter Plan of Treatment Not on file documented as of this encounter Procedures Procedure Name Priority Date/Time Associated Diagnosis Comments C. DIFFICILE DETECTION Routine 11/17/2022 10:45 AM SOFTWARE DESIGN MANAGER documented in this encounter Results * (ABNORMAL) C. DIFFICILE DETECTION (11/17/2022 10:45 AM SOFTWARE DESIGN MANAGER) TOXIGENIC C DIFFICILE DETECTED( A) Not Detected 11/17/2022 1:45 PM SOFTWARE DESIGN MANAGER [facility] Stool STOOL SPECIMEN / Unknown Collection / Unknown 11/17/2022 10:45 AM SOFTWARE DESIGN MANAGER 11/17/2022 12:20 PM SOFTWARE DESIGN MANAGER Narrative [facility] - 11/17/2022 1:45 PM SOFTWARE DESIGN MANAGER Cdiff detected called to Cait Feng [facility] by CATRACHO REINA on 11/17/2022 at [...] MICROBIOLOGY - GENERAL ORDERAB LES Final Result [facility] CLIA # [id number] [facility] [address] documented in this encounter Visit Diagnoses Not on filedocumented in this encounter Additional Health Concerns Infection Onset Date Last Indicated Resolved Time C Diff 11/17/2022 11/17/2022 01/16/2023 1:16 AM CDT documented as of this encounter Care Teams Assisted Living Care Manager Relationship Specialty Start Date End Date Shant Ballesteros Jr., MD [address] [place] [address] PCP - General Family Practice 01/19/14 documented as of this encounter
--- OUTSIDE RECORDS SUMMARY | 2025-05-14 15:59 | XMS_ITS | Encounter Summary ---
Author Organization [employer] Address [address] [place] [address] Care Team Providers Care Concrete Gun Operator Name Role Phone Favina Maldonado MD, Shant Humphreys Primary Care Provider Encounter Details Date Type Department Care Team (Late st Contact Info) Description 11/21/2022 Lab Requisition [facility] Laboratory Services [address] [place] [address] Low Amaya, DO [address] [place] [phone] Social History Tobacco Use Types Packs/Day Years Used Date Smoking Tobacco: Never Assessed Sex and Gender Information Value Date Recorded Sex Assigned at Not on file Legal 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 CONVENTIONAL UNDERWRITER Gender Identity Not on file Sexual Orientation Not on file documented as of this encounter Plan of Treatment Not on file documented as of this encounter Procedures Procedure Name Priority Date/Time Associated Diagnosis Comments PHOSPHORUS Routine 11/21/2022 4:40 AM CONVENTIONAL UNDERWRITER MAGNESIUM LEVEL Routine 11/21/2022 4:40 AM CONVENTIONAL UNDERWRITER BASIC METABOLIC PANEL Routine 11/21/2022 4:40 AM CONVENTIONAL UNDERWRITER documented in this encounter Results * MAGNESIUM LEVEL (11/21/2022 4:40 AM CONVENTIONAL UNDERWRITER) MAGNESIUM 1.8 1.6 - 2.4 mg/dL 11/21/2022 5:26 AM CONVENTIONAL UNDERWRITER [facility] Blood Collection / Unknown 11/21/2022 4:40 AM CONVENTIONAL UNDERWRITER 11/21/2022 5:08 AM CONVENTIONAL UNDERWRITER Low Amaya DO CHEMISTRY ORDERABLES Final R esult Performing Organization Address [facility]/ZIP Co de Phone Number [facility] CLIA # [id number] [id number] [place] [address] * PHOSPHORUS (11/21/2022 4:40 AM CONVENTIONAL UNDERWRITER) PHOSPHORUS 2.8 2.5 - 4.5 mg/dL 11/21/2022 5:26 AM [facility] Blood Collection / Unknown 11/21/2022 4:40 AM CONVENTIONAL UNDERWRITER 11/21/2022 5:08 AM CONVENTIONAL UNDERWRITER Low Amaya DO CHEMISTRY ORDERABLES Final R esult Performing Organization Address City/[facility]/ZIP Co de Phone Number [facility] CLIA # [id number] [address] [address] * (ABNORMAL) BASIC METABOLIC PANEL (11/21/2022 4:40 AM CONVENTIONAL UNDERWRITER) SODIUM 145 136 - 145 mmol/L 11/21/2022 5:26 AM [facility] BioArray [facility] POTASSIUM 3.5 3.5 - 5.1 mmol/L 11/21/2022 5:26 AM [facility] CHLORIDE 106 98 - 107 mmol/L 11/21/2022 5:26 AM [facility] CO2 31(H) 22 - 29 mmol/L 11/21/2022 5:26 AM [facility] CALCIUM 9.3 8.8 - 10.2 mg/dL 11/21/2022 5:26 AM [facility] BUN 29(H) 8 - 23 mg/dL 11/21/2022 5:26 AM [facility] CREATININE 0.95 0.67 - 1.17 mg/dL 11/21/2022 5:26 AM [facility] GLUCOSE 136(H) 74 - 99 mg/dL 11/21/2022 5:26 AM [facility] GFR >60 >=60 mL/min/1.7 3 sq meter 11/21/2022 5:26 AM [facility] Comment:eGFR calculated with 2020 CKD-EPI equation. Vegetarian diet, extremely high or low muscle mass, and may affect results. Cystatin C with Glomerular Filtration Rate is a suitable alternative for these patients. ANION GAP 8(L) 9 - 20 mmol/L 11/21/2022 5:26 AM [facility] Blood Collection / Unknown 11/21/2022 4:40 AM CONVENTIONAL UNDERWRITER 11/21/2022 5:08 AM CONVENTIONAL UNDERWRITER Low Amaya DO CHEMISTRY ORDERABLES Final R esult [facility] CLIA # [id number] [address] [place] [address] documented in this encounter Visit Diagnoses Not on filedocumented in this encounter Additional Health Concerns Infection Onset Date Last Indicated Resolved Time C Diff 11/17/2022 11/17/2022 01/16/2023 1:16 AM CDT documented as of this encounter Care Teams Concrete Gun Operator Relationship Specialty Start Date End Date Shant Ballesteros Jr., MD [address] [place] [address] PCP - General Family Practice 01/19/14 documented as of this encounter
--- OUTSIDE RECORDS SUMMARY | 2025-05-14 15:59 | XMS_ITS | Encounter Summary ---
Author Organization [facility] Address [address] [place] [address] Care Team Providers Care Basketball Referee Name Role Phone Favian Maldonado MD, Shant Humphreys Primary Care Provider Encounter Details Date Type Department Care Team (Late st Contact Info) Description 11/22/2022 Lab Requisition [facility] Laboratory Services [address] [place] [address] Low Amaya, DO [address] [place] [address] Social History Tobacco Use Types Packs/Day Years Used Date Smoking Tobacco: Never Assessed Sex and Gender Information Value Date Recorded Sex Assigned at Not on file Legal 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 CASTING ROOM OPERATOR Gender Identity Not on file Sexual Orientation Not on file documented as of this encounter Plan of Treatment Not on file documented as of this encounter Procedures Procedure Name Priority Date/Time Associated Diagnosis Comments CBC WITH DIFFERENTIAL Routine 11/22/2022 4:14 AM CASTING ROOM OPERATOR documented in this encounter Results * (ABNORMAL) CBC WITH DIFFERENTIAL (11/22/2022 4:14 AM CASTING ROOM OPERATOR) WBC 6.6 4.8 - 10.8 K/uL 11/22/2022 7:49 AM CASTING ROOM OPERATOR [facility] RBC 2.65(L) 4.60 - 6.20 M/uL 11/22/2022 7:49 AM CASTING ROOM OPERATOR [facility] HEMOGLOBIN 7.9(L) 14.0 - 18.0 g/dL 11/22/2022 7:49 AM [facility] HEMATOCRIT 26.8(L) 41.0 - 53.0 % 11/22/2022 7:49 AM [facility] MCV 101.1 84.0 - 103.0 fL 11/22/2022 7:49 AM [facility] MCH 29.8 27.0 - 34.0 pg 11/22/2022 7:49 AM [facility] MCHC 29.5(L) 30.0 - 35.0 g/dL 11/22/2022 7:49 AM [facility] RDW 18.6(H) 11.0 - 14.5 % 11/22/2022 7:49 AM [facility] RDW-STDEV 66.0(H) 37.0 - 54.0 fL 11/22/2022 7:49 AM [facility] PLATELETS 298 140 - 440 K/uL 11/22/2022 7:49 AM [facility] MPV 9.8 8.9 - 12.8 fL 11/22/2022 7:49 AM [facility] NEUTROPHILS 67 42 - 75 % 11/22/2022 7:49 AM [facility] LYMPHOCYTES 14(L) 24 - 44 % 11/22/2022 7:49 AM [facility] MONOCYTES 11(H) 2 - 10 % 11/22/2022 7:49 AM [facility] [employer] [facility] EOSINOPHILS 6 0 - 7 % 11/22/2022 7:49 AM [facility] [employer] [facility] BASOPHILS 1 0 - 1 % 11/22/2022 7:49 AM [facility] IMMATURE GRANULOCYTES 1 0 - 2 % 11/22/2022 7:49 AM [facility] NEUTROPHIL ABSOLUTE 4.40 2.00 - 8.00 K/uL 11/22/2022 7:49 AM [facility] LYMPHOCYTE ABSOLUTE 0.92(L) 1.20 - 4.00 K/uL 11/22/2022 7:49 AM [facility] MONOCYTE ABSOLUTE 0.74(H) 0.10 - 0.60 K/uL 11/22/2022 7:49 AM CASTING ROOM OPERATOR [facility] EOSINOPHIL ABSOLUTE 0.40 0.00 - 0.70 K/uL 11/22/2022 7:49 AM CASTING ROOM OPERATOR [facility] BASOPHILS ABSOLUTE 0.03 0.00 - 0.20 K/uL 11/22/2022 7:49 AM CASTING ROOM OPERATOR [facility] IMMATURE GRANULOCYTES ABSOLUTE 0.07 0.00 - 0.10 K/uL 11/22/2022 7:49 AM CASTING ROOM OPERATOR [facility] Blood Collection / Unknown 11/22/2022 4:14 AM CASTING ROOM OPERATOR 11/22/2022 7:43 AM CASTING ROOM OPERATOR Low Amaya DO HEMATOLOGY ORDERABLES Final Result Performing Organization Address City/State/[facility] Co de Phone Number [facility] CLIA # [id number] [facility] [address] documented in this encounter Visit Diagnoses Not on filedocumented in this encounter Additional Health Concerns Infection Onset Date Last Indicated Resolved Time C Diff 11/17/2022 11/17/2022 01/16/2023 1:1 6 AM CDT documented as of this encounter Care Teams Basketball Referee Relationship Specialty Start Date End Date Shant Ballesteros Jr., MD [address] [place] [address] PCP - General Family Practice 01/19/14 documented as of this encounter
--- OUTSIDE RECORDS SUMMARY | 2025-05-14 15:59 | XMS_ITS | Encounter Summary ---
Author Organization [facility] Address [address] [place] [address] Care Team Providers Care Electrophysiology Technician Name Role Phone Favian Maldonado MD, Shant Humphreys Primary Care Provider Encounter Details Date Type Department Care Team (Late st Contact Info) Description 11/20/2022 Lab Requisition [facility] Laboratory Services [address] [place] [address] Andre Mary, MADHU [address] [facility] [address] [place] [address] Social History Tobacco Use Types Packs/Day Years Used Date Smoking Tobacco: Never Assessed Sex and Gender Information Value Date Recorded Sex Assigned at Not on file Legal 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 LAB CLERK Gender Identity Not on file Sexual Orientation Not on file documented as of this encounter Plan of Treatment Not on file documented as of this encounter Procedures Procedure Name Priority Date/Time Associated Diagnosis Comments CBC WITH DIFFERENTIAL Routine 11/20/2022 3:55 PM LAB CLERK documented in this encounter Results * (ABNORMAL) CBC WITH DIFFERENTIAL (11/20/2022 3:55 PM LAB CLERK) WBC 7.3 4.8 - 10.8 K/uL 11/20/2022 4:35 PM LAB CLERK [facility] RBC 2.66(L) 4.60 - 6.20 M/uL 11/20/2022 4:35 PM LAB CLERK [facility] HEMOGLOBIN 8.0(L) 14.0 - 18.0 g/dL 11/20/2022 4:35 PM [facility] HEMATOCRIT 27.1(L) 41.0 - 53.0 % 11/20/2022 4:35 PM [facility] MCV 101.9 84.0 - 103.0 fL 11/20/2022 4:35 PM [facility] MCH 30.1 27.0 - 34.0 pg 11/20/2022 4:35 PM [facility] MCHC 29.5(L) 30.0 - 35.0 g/dL 11/20/2022 4:35 PM [facility] RDW 17.7(H) 11.0 - 14.5 % 11/20/2022 4:35 PM [facility] RDW-STDEV 62.4(H) 37.0 - 54.0 fL 11/20/2022 4:35 PM [facility] PLATELETS 302 140 - 440 K/uL 11/20/2022 4:35 PM [facility] MPV 9.6 8.9 - 12.8 fL 11/20/2022 4:35 PM [facility] NEUTROPHILS 68 42 - 75 % 11/20/2022 4:35 PM [facility] LYMPHOCYTES 15(L) 24 - 44 % 11/20/2022 4:35 PM [facility] MONOCYTES 12(H) 2 - 10 % 11/20/2022 4:35 PM [facility] EOSINOPHILS 3 0 - 7 % 11/20/2022 4:35 PM [facility] BASOPHILS 0 0 - 1 % 11/20/2022 4:35 PM [facility] IMMATURE GRANULOCYTES 1 0 - 2 % 11/20/2022 4:35 PM [facility] NEUTROPHIL ABSOLUTE 5.00 2.00 - 8.00 K/uL 11/20/2022 4:35 PM [facility] LYMPHOCYTE ABSOLUTE 1.06(L) 1.20 - 4.00 K/uL 11/20/2022 4:35 PM LAB CLERK [facility] MONOCYTE ABSOLUTE 0.91(H) 0.10 - 0.60 K/uL 11/20/2022 4:35 PM LAB CLERK [facility] EOSINOPHIL ABSOLUTE 0.22 0.00 - 0.70 K/uL 11/20/2022 4:35 PM [facility] BASOPHILS ABSOLUTE 0.02 0.00 - 0.20 K/uL 11/20/2022 4:35 PM [facility] IMMATURE GRANULOCYTES ABSOLUTE 0.10 0.00 - 0.10 K/uL 11/20/2022 4:35 PM [facility] Blood Collection / Unknown 11/20/2022 3:55 PM LAB CLERK 11/20/2022 4:30 PM LAB CLERK us Andre Mary LICENSED CLINICIAN HEMATOLOGY ORDERABLES Fi nal Result [facility] CLIA # [id number] [facility] [address] documented in this encounter Visit Diagnoses Not on filedocumented in this encounter Additional Health Concerns Infection Onset Date Last Indicated Resolved Time C Diff 11/17/2022 11/17/2022 01/16/2023 1:16 AM CDT documented as of this encounter Care Teams Electrophysiology Technician Relationship Specialty Start Date End Date Shant Ballesteros Jr., MD [address] [place] [address] PCP - General Family Practice 01/19/14 documented as of this encounter
--- OUTSIDE RECORDS SUMMARY | 2025-05-14 15:59 | XMS_ITS | Encounter Summary ---
Author Organization [email or web address] Address [address] [place] [address] Care Team Providers Care Teacher Vocal Name Role Phone Favian Maldonado MD, Shant Humphreys Primary Care Provider Encounter Details Date Type Department Care Team (Late st Contact Info) Description 11/09/2022 Lab Requisition [facility] Laboratory Services [address] [place] [address] [place] [address] Soni Jeffery MD [address] [place] [address] Social History Tobacco Use Types Packs/Day Years Used Date Smoking Tobacco: Never Assessed Sex and Gender Information Value Date Recorded Sex Assigned at Not on file Legal 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 HARNESS RIGGER Gender Identity Not on file Sexual Orientation Not on file documented as of this encounter Plan of Treatment Not on file documented as of this encounter Procedures Procedure Name Priority Date/Time Associated Diagnosis Comments CBC WITH DIFFERENTIAL Routine 11/09/2022 6:15 PM HARNESS RIGGER BASIC METABOLIC PANEL Routine 11/09/2022 6:15 PM HARNESS RIGGER documented in this encounter Results * (ABNORMAL) CBC WITH DIFFERENTIAL (11/09/2022 6:15 PM HARNESS RIGGER) [facility] WBC 7.2 4.8 - 10.8 K/uL 11/09/2022 7:07 PM HARNESS RIGGER [facility] RBC 2.78(L) 4.60 - 6.20 M/uL 11/09/2022 7:07 PM [facility] HEMOGLOBIN 8.0(L) 14.0 - 18.0 g/dL 11/09/2022 7:07 PM [facility] HEMATOCRIT 27.5(L) 41.0 - 53.0 % 11/09/2022 7:07 PM [facility] MCV 98.9 84.0 - 103.0 fL 11/09/2022 7:07 PM [facility] MCH 28.8 27.0 - 34.0 pg 11/09/2022 7:07 PM [facility] MCHC 29.1(L) 30.0 - 35.0 g/dL 11/09/2022 7:07 PM [facility] RDW 15.9(H) 11.0 - 14.5 % 11/09/2022 7:07 PM [facility] RDW-STDEV 57.7(H) 37.0 - 54.0 fL 11/09/2022 7:07 PM [facility] PLATELETS 250 140 - 440 K/uL 11/09/2022 7:07 PM [facility] MPV 10.9 8.9 - 12.8 fL 11/09/2022 7:07 PM [facility] NEUTROPHILS 65 42 - 75 % 11/09/2022 7:07 PM [facility] LYMPHOCYTES 11(L) 24 - 44 % 11/09/2022 7:07 PM [facility] MONOCYTES 17(H) 2 - 10 % 11/09/2022 7:07 PM [facility] EOSINOPHILS 6 0 - 7 % 11/09/2022 7:07 PM [facility] BASOPHILS 1 0 - 1 % 11/09/2022 7:07 PM [facility] IMMATURE GRANULOCYTES 1 0 - 2 % 11/09/2022 7:07 PM [facility] NEUTROPHIL ABSOLUTE 4.64 2.00 - 8.00 K/uL 11/09/2022 7:07 PM [facility] LYMPHOCYTE ABSOLUTE 0.79(L) 1.20 - 4.00 K/uL 11/09/2022 7:07 PM [facility] MONOCYTE ABSOLUTE 1.19(H) 0.10 - 0.60 K/uL 11/09/2022 7:07 PM [facility] EOSINOPHIL ABSOLUTE 0.42 0.00 - 0.70 K/uL 11/09/2022 7:07 PM [facility] BASOPHILS ABSOLUTE 0.04 0.00 - 0.20 K/uL 11/09/2022 7:07 PM [facility] IMMATURE GRANULOCYTES ABSOLUTE 0.08 0.00 - 0.10 K/uL 11/09/2022 7:07 PM [facility] Blood Collection / Unknown 11/09/2022 6:15 PM HARNESS RIGGER 11/09/2022 7:03 PM [facility] Soni Jeffery MD HEMATOLOGY ORDERABLES Final Resu lt [facility] CLIA # [id number] [facility] [address] * (ABNORMAL) BASIC METABOLIC PANEL (11/09/2022 6:15 PM HARNESS RIGGER) SODIUM 140 136 - 145 mmol/L 11/09/2022 7:39 PM [facility] POTASSIUM 4.8 3.5 - 5.1 mmol/L 11/09/2022 7:39 PM [facility] CHLORIDE 106 98 - 107 mmol/L 11/09/2022 7:39 PM [facility] CO2 26 22 - 29 mmol/L 11/09/2022 7:39 PM [facility] CALCIUM 8.6(L) 8.8 - 10.2 mg/dL 11/09/2022 7:39 PM [facility] BUN 22 8 - 23 mg/dL 11/09/2022 7:39 PM [facility] CREATININE 1.15 0.67 - 1.17 mg/dL 11/09/2022 7:39 PM [facility] GLUCOSE 121(H) 74 - 99 mg/dL 11/09/2022 7:39 PM HARNESS RIGGER [facility] GFR >60 >=60 mL/min/1.7 3 sq meter 11/09/2022 7:39 PM [facility] Comment:eGFR calculated with 2020 CKD-EPI equation. Vegetarian diet, extremely high or low muscle mass, and may affect results. Cystatin C with Glomerular Filtration Rate is a suitable alternative for these patients. ANION GAP 8(L) 9 - 20 mmol/L 11/09/2022 7:39 PM [facility] Blood Collection / Unknown 11/09/2022 6:15 PM HARNESS RIGGER 11/09/2022 7:03 PM HARNESS RIGGER Soni Jeffery MD CHEMISTRY ORDERABLES Final Resul t Performing Organization Address City/State/[facility] Co de Phone Number [facility] CLIA # [id number] [facility] [address] documented in this encounter Visit Diagnoses Not on filedocumented in this encounter Additional Health Concerns Infection Onset Date Last Indicated Resolved Time C Diff 11/17/2022 11/17/2022 01/16/2023 1:16 AM CDT documented as of this encounter Care Teams Teacher Vocal Relationship Specialty Start Date End Date Shant Ballesteros Jr., MD [address] [place] [address] PCP - General Family Practice 01/19/14 documented as of this encounter
--- OUTSIDE RECORDS SUMMARY | 2025-05-14 15:59 | XMS_ITS | Encounter Summary ---
Author Organization [employer] Address [address] [place] [address] Care Team Providers Care Threader Operator Name Role Phone Favian Maldonado MD, Shant Humphreys Primary Care Provider Encounter Details Date Type Department Care Team (Late st Contact Info) Description 11/25/2022 Lab Requisition [facility] Laboratory Services [address] [place] [address] Andre Mary, MADHU [address] [facility] [address] [place] [address] Social History Tobacco Use Types Packs/Day Years Used Date Smoking Tobacco: Never Assessed Sex and Gender Information Value Date Recorded Sex Assigned at Not on file Legal 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 LABORER MARINE TERMINAL Gender Identity Not on file Sexual Orientation Not on file documented as of this encounter Plan of Treatment Not on file documented as of this encounter Procedures Procedure Name Priority Date/Time Associated Diagnosis Comments RESPIRATORY PATHOGEN PCR PANEL Routine 11/25/2022 9:47 AM LABORER MARINE TERMINAL documented in this encounter Results * RESPIRATORY PATHOGEN PCR PANEL (11/25/2022 9:47 AM LABORER MARINE TERMINAL) Respiratory Pathogen PCR Panel NOT DETECTED No respiratory pathogen nucleic acids detected. 11/25/2022 11:29 AM LABORER MARINE TERMINAL [facility] [employer] [facility] COVID-19 PCR NOT DETECTED Not Detected 11/25/2022 11:29 AM LABORER MARINE TERMINAL [facility] Upper Respiratory ENTIRE NASOPHARYNX / Unknown Collection / Unknown 11/25/2022 9:47 AM LABORER MARINE TERMINAL 11/25/2022 10:36 AM LABORER MARINE TERMINAL Narrative [facility] - 11/25/2022 11:29 AM LABORER MARINE TERMINAL The [employer] Array Respiratory Panel (RP2.1) is [...] parapertussis Chlamydophila pneumoniae Mycoplasma pneumoniae Andre Mary PSYCHOLOGIST MILITARY PERSONNEL MICROBIOLOGY - GENERAL O RDERABLES Final Result [id number] [address] [place] [address] documented in this encounter Visit Diagnoses Not on filedocumented in this encounter Additional Health Concerns Infection Onset Date Last Indicated Resolved Time C Diff 11/17/2022 11/17/2022 01/16/2023 1:16 AM CDT documented as of this encounter Care Teams Threader Operator Relationship Specialty Start Date End Date Shant Ballesteros Jr., MD [address] [place] [address] PCP - General Family Practice 01/19/14 documented as of this encounter
--- OUTSIDE RECORDS SUMMARY | 2025-05-14 15:59 | XMS_ITS | Encounter Summary ---
Author Organization [facility] Address [address] [place] [address] Care Team Providers Care Chimney Repairer Name Role Phone Favian Maldonado MD, Shant Humphreys Primary Care Provider Encounter Details Date Type Department Care Team (Late st Contact Info) Description 11/10/2022 Lab Requisition [facility] Laboratory Services [address] [place] [address] [place] [address] Soni Jeffery MD [address] [place] [address] Social History Tobacco Use Types Packs/Day Years Used Date Smoking Tobacco: Never Assessed Sex and Gender Information Value Date Recorded Sex Assigned at Not on file Legal 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 REMOTE RECRUITER Gender Identity Not on file Sexual Orientation Not on file documented as of this encounter Plan of Treatment Not on file documented as of this encounter Procedures Procedure Name Priority Date/Time Associated Diagnosis Comments CBC WITH DIFFERENTIAL Stat 11/10/2022 2:20 PM REMOTE RECRUITER documented in this encounter Results * (ABNORMAL) CBC WITH DIFFERENTIAL (11/10/2022 2:20 PM REMOTE RECRUITER) WBC 5.2 4.8 - 10.8 K/uL 11/10/2022 3:[address] [facility] RBC 2.60(L) 4.60 - 6.20 M/uL 11/10/2022 3:[address] [facility] HEMOGLOBIN 7.6(L) 14.0 - 18.0 g/dL 11/10/2022 3:18 PM [facility] HEMATOCRIT 25.3(L) 41.0 - 53.0 % 11/10/2022 3:18 PM [facility] MCV 97.3 84.0 - 103.0 fL 11/10/2022 3:18 PM [facility] MCH 29.2 27.0 - 34.0 pg 11/10/2022 3:18 PM [facility] MCHC 30.0 30.0 - 35.0 g/dL 11/10/2022 3:18 PM [facility] RDW 15.8(H) 11.0 - 14.5 % 11/10/2022 3:18 PM [facility] RDW-STDEV 56.3(H) 37.0 - 54.0 fL 11/10/2022 3:18 PM [facility] PLATELETS 249 140 - 440 K/uL 11/10/2022 3:18 PM [facility] MPV 11.0 8.9 - 12.8 fL 11/10/2022 3:18 PM [facility] NEUTROPHILS 62 42 - 75 % 11/10/2022 3:18 PM [facility] LYMPHOCYTES 15(L) 24 - 44 % 11/10/2022 3:18 PM [facility] MONOCYTES 17(H) 2 - 10 % 11/10/2022 3:18 PM [facility] EOSINOPHILS 6 0 - 7 % 11/10/2022 3:18 PM [facility] BASOPHILS 1 0 - 1 % 11/10/2022 3:18 PM [facility] IMMATURE GRANULOCYTES 1 0 - 2 % 11/10/2022 3:18 PM [facility] NEUTROPHIL ABSOLUTE 3.22 2.00 - 8.00 K/uL 11/10/2022 3:18 PM [facility] LYMPHOCYTE ABSOLUTE 0.78(L) 1.20 - 4.00 K/uL 11/10/2022 3:18 PM [facility] MONOCYTE ABSOLUTE 0.87(H) 0.10 - 0.60 K/uL 11/10/2022 3:[address] [facility] EOSINOPHIL ABSOLUTE 0.30 0.00 - 0.70 K/uL 11/10/2022 3:18 PM REMOTE RECRUITER [facility] BASOPHILS ABSOLUTE 0.03 0.00 - 0.20 K/uL 11/10/2022 3:18 PM REMOTE RECRUITER [facility] IMMATURE GRANULOCYTES ABSOLUTE 0.03 0.00 - 0.10 K/uL 11/10/2022 3:18 PM REMOTE RECRUITER [facility] Blood Collection / Unknown 11/10/2022 2:20 PM REMOTE RECRUITER 11/10/2022 3:09 PM REMOTE RECRUITER Soni Jeffery MD HEMATOLOGY ORDERABLES Final Resu lt [facility] CLIA # [id number] [facility] [address] documented in this encounter Visit Diagnoses Not on filedocumented in this encounter Additional Health Concerns Infection Onset Date Last Indicated Resolved Time C Diff 11/17/2022 11/17/2022 01/16/2023 1:16 AM CDT documented as of this encounter Care Teams Chimney Repairer Relationship Specialty Start Date End Date Shant Ballesteros Jr., MD [address] [place] [address] PCP - General Family Practice 01/19/14 documented as of this encounter
[2025-05-14 16:47] LABS: Hematocrit 43.9 % (37-53); Hemoglobin 14.10 g/dL (11.27-16.99); Mean Corpuscular HGB Conc 32.1 g/dL (30-55); Mean Corpuscular Hemoglobin 30.3 pg (27-33); Mean Corpuscular Volume 94.4 fl (82-101); Nucleated Red Blood Cells % 0 %; Platelet Count 152 10^3/cmm (157-399); Red Blood Count 4.65 10^6/uL (3.85-5.65); White Blood Count 4.65 10^3/uL (3.29-11.43)
[2025-05-14 17:05] LABS: Alanine Aminotransferase 10 U/L (0-41); Albumin Level 3.7 g/dL (3.5-5.2); Alkaline Phosphatase 82 U/L (40-130); Anion Gap 17.0 (5-19); Aspartate Amino Transferase 18 U/L (0-40); Blood Urea Nitrogen 14 mg/dL (8-23); Calcium 9.7 mg/dL (8.5-10.5); Carbon Dioxide 24 mmol/L (22-29); Chloride 103 mmol/L (98-107); Creatinine Clr Calc Pharmacy 96.4966; Globulin 3.2 g/dL (1.3-4.6); Glucose 103 mg/dL (65-115); Osmolality Calculated 291 mOsm/kg (285-295); Potassium 4.0 mmol/L (3.5-5.1); Sodium 140 mmol/L (136-145); Total Protein 6.9 g/dL (6.6-8.7)
[2025-05-14 17:32] VITALS: BP 112/68; PULSE 66; RESP 16; O2SAT 94
[2025-05-14 18:05] LABS: Carcinoembryonic Antigen 1870.0 ng/mL (0.0-4.7)
== END 2025-05-14 17:33 | disposition home or self-care (01) ==
PROVIDERS: Emergency Provider Emergency Medicine; PCP Family Medicine
DX: M25.561 Pain in right knee (principal); M54.50 Low back pain, unspecified; M25.522 Pain in left elbow; Z79.82 Long term (current) use of aspirin; Z87.891 Personal history of nicotine dependence; E78.5 Hyperlipidemia, unspecified; Z85.038 Personal history of other malignant neoplasm of large intestine; Z85.05 Personal history of malignant neoplasm of liver; Z85.89 Personal history of malignant neoplasm of other organs and systems; I10 Essential (primary) hypertension
CPT/HCPCS: 36415; 72100; 73080; 73562; 80053; 82378; 85025; 93005; 99284

== ENCOUNTER → 2025-05-17 10:53 | Outpatient (BNVA) | payer MEDICARE, SELFPAY | PROVIDERS: PCP Family Medicine; Visit Provider Internal Medicine | DX: E04.1 Nontoxic single thyroid nodule (principal); E04.9 Nontoxic goiter, unspecified; R49.0 Dysphonia | CPT/HCPCS: 99204 ==

== ENCOUNTER 2025-05-22 12:02 | Emergency (ER) | payer MEDICARE, SELFPAY ==
--- OUTSIDE RECORDS SUMMARY | 2025-05-05 09:00 | XMS_ITS ---
Author Organization [facility] Address [address] [place] [address] Care Team Providers Care Ventilation Worker Name Role Phone Kady Floyd Primary Care Provider Bala Wilson Unavailable [phone] KADY FLOYD Unavailable Unavailable Tonya Woodruff Unavailable REASON FOR VISIT 6m f/u w cbc,cmp, testosterone, estradiol , psa Encounters Encounter Location Date Provider Diagnosis [facility] [address] [place] [address] [address] [place] [address] 05/05/2025 Tonya Woodruff Testicular hypofunction E29.1 ; Low libido R68.82 and Fatigue R53.83 Assessments Encounter Date Diagnosis (ICD Code) Assessment Notes Treatment Notes Treatment Clinical Notes Section Notes 05/05/2025 Testicular hypofunction (ICD-10 - E29.1) 05/05/2025 Low libido (ICD-10 - R68.82) 05/05/2025 Fatigue (ICD-10 - R53.83) Plan Of Treatment No Information Progress Notes * Charan AKMARA TDOB:1955 (70 yo M)Acc No.[id number]:05/05/2025 Progress Notes Patient: Charan Robison Provider: JIMENA Ramos :1955 A ge:70 Y S ex:Male Date:05/05/2025 Address:[address] [place], [place] [id number] Pcp:Kady Floyd Subjective: * Chief Complaints: * [...] * Electronic signature of JIMENA Romeo on 05/22/2025 at 12:09 PM CDT Sign off status: Pending * Provider: JIMENA Ramos Date: 05/05/2025 Generated for Man Ho/Flaquito on: 05/22/2025 12:09 PM CDT
[2025-05-22 12:03] VITALS: BP 93/68; PULSE 94; RESP 16; TEMP 36.8; O2SAT 97; BMI 30.4
--- OUTSIDE RECORDS SUMMARY | 2025-05-22 12:08 | XMS_ITS | Encounter Summary ---
Author Organization [employer] Address [address] [place] [address] Care Team Providers Care Learning Disabilities Specialist Name Role Phone Favian Maldonado MD, Shant Humphreys Primary Care Provider Encounter Details Date Type Department Care Team (Late st Contact Info) Description 11/26/2022 Lab Requisition [facility] Laboratory Services [address] [place] [address] [place] [address] Low Amaya, DO [address] [place] [address] Social History Tobacco Use Types Packs/Day Years Used Date Smoking Tobacco: Never Assessed Sex and Gender Information Value Date Recorded Sex Assigned at Not on file Legal 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 GROUP CONTROLLER Gender Identity Not on file Sexual Orientation Not on file documented as of this encounter Plan of Treatment Not on file documented as of this encounter Procedures Procedure Name Priority Date/Time Associated Diagnosis Comments CBC WITH DIFFERENTIAL Routine 11/26/2022 1:15 AM GROUP CONTROLLER TRIGLYCERIDE Routine 11/26/2022 1:15 AM GROUP CONTROLLER PHOSPHORUS Routine 11/26/2022 1:15 AM GROUP CONTROLLER MAGNESIUM LEVEL Routine 11/26/2022 1:15 AM GROUP CONTROLLER COMPREHENSIVE METABOLIC PANEL Routine 11/26/2022 1:15 AM GROUP CONTROLLER documented in this encounter Results * (ABNORMAL) TRIGLYCERIDE (11/26/2022 1:15 AM GROUP CONTROLLER) TRIGLYCERIDE 172(H) <150 mg/dL 11/26/2022 6:58 AM [facility] Blood Collection / Unknown 11/26/2022 1:15 AM GROUP CONTROLLER 11/26/2022 6:01 AM GROUP CONTROLLER Narrative [facility] - 11/26/2022 6:58 AM GROUP CONTROLLER TRIGLYCERIDES mg/dL Normal < 150 Borderline High 150 - 199 High 200 - 499 Very High >= 500 Based on AHA/NCEP Guidelines. Low Amaya DO CHEMISTRY ORDERABLES Final R formerly [facility] Performing Organization Address City[facility]/ZIP Co de Phone Number [facility] CLIA # [id number] [address] [id number] * PHOSPHORUS (11/26/2022 1:15 AM GROUP CONTROLLER) PHOSPHORUS 3.2 2.5 - 4.5 mg/dL 11/26/2022 6:58 AM [facility] Blood Collection / Unknown 11/26/2022 1:15 AM GROUP CONTROLLER 11/26/2022 6:01 AM GROUP CONTROLLER Low Amaya DO CHEMISTRY ORDERABLES Final R esult [facility] CLIA # [id number] [address] [place], [place] [address] * MAGNESIUM LEVEL (11/26/2022 1:15 AM GROUP CONTROLLER) MAGNESIUM 2.0 1.6 - 2.4 mg/dL 11/26/2022 6:58 AM GROUP CONTROLLER [facility] Blood Collection / Unknown 11/26/2022 1:15 AM GROUP CONTROLLER 11/26/2022 6:01 AM GROUP CONTROLLER us Low Amaya DO CHEMISTRY ORDERABLES Final R esult [facility] CLIA # [id number] [address] [facility] [facility] [place] [address] * (ABNORMAL) CBC WITH DIFFERENTIAL (11/26/2022 1:15 AM GROUP CONTROLLER) [facility] WBC 6.1 4.8 - 10.8 K/uL 11/26/2022 6:14 AM [facility] RBC 2.61(L) 4.60 - 6.20 M/uL 11/26/2022 6:14 AM [facility] HEMOGLOBIN 7.8(L) 14.0 - 18.0 g/dL 11/26/2022 6:14 AM [facility] HEMATOCRIT 26.5(L) 41.0 - 53.0 % 11/26/2022 6:14 AM [facility] MCV 101.5 84.0 - 103.0 fL 11/26/2022 6:14 AM [facility] MCH 29.9 27.0 - 34.0 pg 11/26/2022 6:14 AM [facility] MCHC 29.4(L) 30.0 - 35.0 g/dL 11/26/2022 6:14 AM [facility] RDW 18.2(H) 11.0 - 14.5 % 11/26/2022 6:14 AM [facility] RDW-STDEV 66.1(H) 37.0 - 54.0 fL 11/26/2022 6:14 AM [facility] PLATELETS 222 140 - 440 K/uL 11/26/2022 6:14 AM [facility] MPV 10.6 8.9 - 12.8 fL 11/26/2022 6:14 AM [facility] NEUTROPHILS 63 42 - 75 % 11/26/2022 6:14 AM [facility] LYMPHOCYTES 18(L) 24 - 44 % 11/26/2022 6:14 AM [facility] MONOCYTES 13(H) 2 - 10 % 11/26/2022 6:14 AM [facility] EOSINOPHILS 5 0 - 7 % 11/26/2022 6:14 AM [facility] BASOPHILS 1 0 - 1 % 11/26/2022 6:14 AM [facility] IMMATURE GRANULOCYTES 1 0 - 2 % 11/26/2022 6:14 AM [facility] NEUTROPHIL ABSOLUTE 3.84 2.00 - 8.00 K/uL 11/26/2022 6:14 AM [facility] LYMPHOCYTE ABSOLUTE 1.09(L) 1.20 - 4.00 K/uL 11/26/2022 6:14 AM [facility] MONOCYTE ABSOLUTE 0.79(H) 0.10 - 0.60 K/uL 11/26/2022 6:14 AM [facility] EOSINOPHIL ABSOLUTE 0.32 0.00 - 0.70 K/uL 11/26/2022 6:14 AM [facility] BASOPHILS ABSOLUTE 0.04 0.00 - 0.20 K/uL 11/26/2022 6:14 AM [facility] IMMATURE GRANULOCYTES ABSOLUTE 0.03 0.00 - 0.10 K/uL 11/26/2022 6:14 AM [facility] Blood Collection / Unknown 11/26/2022 1:15 AM GROUP CONTROLLER 11/26/2022 6:01 AM [facility] us Low Amaya DO HEMATOLOGY ORDERABLES Final Result [facility] CLIA # [id number] [facility] [address] [place] [address] * (ABNORMAL) COMPREHENSIVE METABOLIC PANEL (11/26/2022 1:15 AM GROUP CONTROLLER) [facility] SODIUM 140 136 - 145 mmol/L 11/26/2022 6:58 AM [facility] POTASSIUM 3.9 3.5 - 5.1 mmol/L 11/26/2022 6:58 AM [facility] CHLORIDE 103 98 - 107 mmol/L 11/26/2022 6:58 AM [facility] CO2 30(H) 22 - 29 mmol/L 11/26/2022 6:58 AM [facility] CALCIUM 9.3 8.8 - 10.2 mg/dL 11/26/2022 6:58 AM [facility] BUN 34(H) 8 - 23 mg/dL 11/26/2022 6:58 AM [facility] CREATININE 1.08 0.67 - 1.17 mg/dL 11/26/2022 6:58 AM [facility] GLUCOSE 129(H) 74 - 99 mg/dL 11/26/2022 6:58 AM [facility] TOTAL PROTEIN 6.4 6.4 - 8.3 g/dL 11/26/2022 6:58 AM [facility] ALBUMIN 2.9(L) 3.5 - 5.2 g/dL 11/26/2022 6:58 AM [facility] BILIRUBIN TOTAL 0.3 0.2 - 1.0 mg/dL 11/26/2022 6:58 AM [facility] ALKALINE PHOSPHATASE 86 40 - 129 U/L 11/26/2022 6:58 AM [facility] AST 14 10 - 50 U/L 11/26/2022 6:58 AM [facility] ALT 10 <=50 U/L 11/26/2022 6:58 AM [facility] GFR >60 >=60 mL/min/1.7 3 sq meter 11/26/2022 6:58 AM [facility] Comment:eGFR calculated with 2020 CKD-EPI equation. Vegetarian diet, extremely high or low muscle mass, and may affect results. Cystatin C with Glomerular Filtration Rate is a suitable alternative for these patients. ANION GAP 7(L) 9 - 20 mmol/L 11/26/2022 6:58 AM GROUP CONTROLLER [facility] Blood Collection / Unknown 11/26/2022 1:15 AM GROUP CONTROLLER 11/26/2022 6:01 AM GROUP CONTROLLER Low Amaya DO CHEMISTRY ORDERABLES Final R esult [facility] CLIA # [id number] [facility] [address] documented in this encounter Visit Diagnoses Not on filedocumented in this encounter Additional Health Concerns Infection Onset Date Last Indicated Resolved Time C Diff 11/17/2022 11/17/2022 01/16/2023 1:16 AM CDT documented as of this encounter Care Teams Learning Disabilities Specialist Relationship Specialty Start Date End Date Shant Ballesteros Jr., MD [address] [place] [address] PCP - General Family Practice 01/19/14 documented as of this encounter
--- OUTSIDE RECORDS SUMMARY | 2025-05-22 12:08 | XMS_ITS | Encounter Summary ---
Author Organization [employer] Address [address] [place] [address] Care Team Providers Care Activity Therapy Specialist Name Role Phone Favian Maldonado MD, Shant Humphreys Primary Care Provider Encounter Details Date Type Department Care Team (Late st Contact Info) Description 12/12/2022 Lab Requisition [facility] Laboratory Services [address] [place] [address] [place] [address] Low Amaya, DO [address] [place] [address] Social History Tobacco Use Types Packs/Day Years Used Date Smoking Tobacco: Never Assessed Sex and Gender Information Value Date Recorded Sex Assigned at Not on file Legal 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 TECHNICAL SERVICES REP Gender Identity Not on file Sexual [...] - 4.5 mg/dL 12/12/2022 5:57 AM CDT [facility] Blood Collection / Unknown 12/12/2022 3:15 AM CDT 12/12/2022 5:23 AM CDT Low L Monique DO CHEMISTRY ORDERABLES Final R esult Performing Organization Address [facility] de Phone Number [facility] CLIA # [id number] [address] [place] [address] * MAGNESIUM LEVEL (12/12/2022 3:15 AM CDT) MAGNESIUM 1.9 1.6 - 2.4 mg/dL 12/12/2022 5:57 AM CDT [facility] Blood Collection / Unknown 12/12/2022 3:15 AM CDT 12/12/2022 5:23 AM CDT Low Amaya CHEMISTRY ORDERABLES Final R esult Performing Organization Address [facility] de Phone Number [facility] CLIA # [id number] [address] [place] [address] * (ABNORMAL) BASIC METABOLIC PANEL (12/12/2022 3:15 AM CDT) SODIUM 135(L) 136 - 145 mmol/L 12/12/2022 5:57 AM CDT [facility] POTASSIUM 4.7 3.5 - 5.1 mmol/L 12/12/2022 5:57 AM CDT [facility] CHLORIDE 101 98 - 107 mmol/L 12/12/2022 5:57 AM CDT [facility] CO2 24 22 - 29 mmol/L 12/12/2022 5:57 AM CDT [facility] CALCIUM 10.0 8.8 - 10.2 mg/dL 12/12/2022 5:57 AM CDT [facility] BUN 42(H) 8 - 23 mg/dL 12/12/2022 5:57 AM CDT [facility] CREATININE 1.00 0.67 - 1.17 mg/dL 12/12/2022 5:57 AM CDT [facility] GLUCOSE 133(H) 74 - 99 mg/dL 12/12/2022 5:57 AM CDT [facility] GFR >60 >=60 mL/min/1.7 3 sq meter 12/12/2022 5:57 AM CDT [facility] Comment:eGFR calculated with 2020 CKD-EPI equation. Vegetarian diet, extremely high or low muscle mass, and may affect results. Cystatin C with Glomerular Filtration Rate is a suitable alternative for these patients. ANION GAP 10 9 - 20 mmol/L 12/12/2022 5:57 AM CDT [facility] Blood Collection / Unknown 12/12/2022 3:15 AM CDT 12/12/2022 5:23 AM CDT Low Amaya DO CHEMISTRY ORDERABLES Final R esult [facility] CLIA # [id number] [facility] [address] documented in this encounter Visit Diagnoses Not on filedocumented in this encounter Additional Health Concerns Infection Onset Date Last Indicated Resolved Time C Diff 11/17/2022 11/17/2022 01/16/2023 1:16 AM CDT documented as of this encounter Care Teams Activity Therapy Specialist Relationship Specialty Start Date End Date Shant Ballesteros Jr., MD [address] [place] [id number] PCP - General Family Practice 01/19/14 documented as of this encounter
--- OUTSIDE RECORDS SUMMARY | 2025-05-22 12:08 | XMS_ITS | Encounter Summary ---
Author Organization [facility] Address [address] [place] [address] Care Team Providers Care Stocklayer Name Role Phone Favian Maldonado MD, Shant Humphreys Primary Care Provider Reason for Referral * Outpatient Services (Routine) - Closed Specialty Diagnoses / Procedures Referred By Delfin jerome Referred To Contact Diagnoses Other nonspecific findings on examination of blood(790.99) Procedures MRI BRAIN W WO CONTRAST Shant Ballesteros Jr., MD [address] [place] [address] Phone: tel: [facility] [place] CALL TO MAKE APPOINTMENT ONLY [address] [place] [address] Phone: tel: fax: Referral ID Status Reason Start Date Expiration Date V isits Requested Visits Authorized [id number] Closed [facility]EDU[facility] [place] 01/18/2014 02/18/2015 1 1 * Outpatient Services (Routine) - Closed Specialty Diagnoses / Procedures Referred By Delfin t Referred To Contact Diagnoses Other nonspecific findings on examination of blood(790.99) Procedures MRA VENOUS HEAD WO CONTRAST Shant Ballesteros Jr., MD [address] [place] [address] Phone: tel: fax: [employer] Pre-Registration [place] CALL TO MAKE APPOINTMENT ONLY [address] [place] [address] Phone: tel: fax: Referral ID Status Reason Start Date Expiration Date V isits Requested Visits Authorized [id number] Closed F [facility] TO SCHEDULE ([facility]) 01/18/2014 02/18/2015 1 1 Encounter Details Date Type Department Care Team (Late st Contact Info) Description 01/18/2014 Ancillary Orders [facility] Pre-Registration [place] CALL TO MAKE APPOINTMENT ONLY [address] [place] [facility] [place] [address] Shant Ballesteros Jr., MD [address] [place] [address] Other nonspecific findings on examination [...] No significant abnormality. Tripp - uploaded from [employer]- Narrative Procedure Note Philippe Mendiola MD - [...] No significant abnormality. Tripp - uploaded from [employer]- us Shant Ballesteros Jr., MD MR ORDERABLES [...] Impression: Unremarkable exam. CHRIS/nikki - uploaded from [employer] - Narrative Procedure Note Philippe Mendiola MD [...] Impression: Unremarkable exam. MWKleber/nikki - uploaded from [employer] - us Shant Ballesteros Jr., MD MR [...] blood documented in this encounter Care Teams Stocklayer Relationship Specialty Start Date End Date Shant Ballesteros Jr., MD [address] [place] [address] PCP - General Family Practice 01/19/14 documented as of this encounter
--- OUTSIDE RECORDS SUMMARY | 2025-05-22 12:08 | XMS_ITS | Encounter Summary ---
Author Organization [employer] Address [address] [place] [address] Care Team Providers Care Quality Nurse Name Role Phone Favian Maldonado MD, Shant Humphreys Primary Care Provider Encounter Details Date Type Department Care Team (Late st Contact Info) Description 11/25/2022 Lab Requisition [facility] Laboratory Services [address] [place] [address] [place] [address] Andre Mary, MADHU [address] [facility] [address] [place] [address] Social History Tobacco Use Types Packs/Day Years Used Date Smoking Tobacco: Never Assessed Sex and Gender Information Value Date Recorded Sex Assigned at Not on file Legal 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 11/25/2022 11:29 AM ELECTRICAL ENGINEERING TEACHER [facility] QUALIA (formerly known as [employer]) [facility] COVID-19 PCR NOT DETECTED Not Detected 11/25/2022 11:29 AM ELECTRICAL ENGINEERING TEACHER [facility] Upper Respiratory ENTIRE NASOPHARYNX / Unknown Collection / Unknown 11/25/2022 9:47 AM ELECTRICAL ENGINEERING TEACHER 11/25/2022 10:36 AM ELECTRICAL ENGINEERING TEACHER Narrative [facility] - 11/25/2022 11:29 AM ELECTRICAL ENGINEERING TEACHER The [employer] Respiratory Panel (RP2.1) is [...] parapertussis Chlamydophila pneumoniae Mycoplasma pneumoniae Andre Mary MACHINE MAINTENANCE SERVICER MICROBIOLOGY - GENERAL O RDERABLES Final Result [id number] [address] [place] [address] documented in this encounter Visit Diagnoses Not on filedocumented in this encounter Additional Health Concerns Infection Onset Date Last Indicated Resolved Time C Diff 11/17/2022 11/17/2022 01/16/2023 1:16 AM CDT documented as of this encounter Care Teams Quality Nurse Relationship Specialty Start Date End Date Shant Ballesteros Jr., MD [address] [place] [address] PCP - General Family Practice 01/19/14 documented as of this encounter
--- OUTSIDE RECORDS SUMMARY | 2025-05-22 12:08 | XMS_ITS | Encounter Summary ---
Author Organization [employer] Address 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 SERVICE 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 Gender Identity Not on file Sexual Orientation Not on file documented as of this encounter Plan of Treatment Not on file documented as of this encounter Procedures Procedure Name Priority Date/Time Associated Diagnosis Comments BRAIN NATRIURETIC PEPTIDE, BNP OR PROBNP Routine 11/25/2022 1:40 AM WELL SERVICE 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 documented in this encounter Results * (ABNORMAL) BRAIN NATRIURETIC PEPTIDE, BNP OR PROBNP (11/25/2022 1:40 AM WELL SERVICE 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) PROBNP, N TERMINAL 2,221(H) 0 - 125 pg/mL 11/25/2022 6:17 AM WELL SERVICE 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 [facility] Blood Collection / Unknown 11/25/2022 1:40 AM WELL SERVICE 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 11/25/2022 6:02 AM WELL SERVICE 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 Esther Sarmiento MD CHEMISTRY ORDERABLES Final Resul t Performing Organization Address City/State/[facility] Co de Phone Number [facility] # [id number] [address] [address] [place] [address] documented in this encounter Visit Diagnoses Not on filedocumented in this encounter Additional Health Concerns Infection Onset Date Last Indicated Resolved Time C Diff 11/17/2022 11/17/2022 01/16/2023 1:16 AM CDT documented as of this encounter Care Teams Unix Analyst Relationship Specialty Start Date End Date Shant Ballesteros Jr., MD [address] [place] [address] PCP - General Family Practice 01/19/14 documented as of this encounter
--- OUTSIDE RECORDS SUMMARY | 2025-05-22 12:08 | XMS_ITS | Encounter Summary ---
Author Organization [employer] Address [address] [place] [address] Care Team Providers Care Beef Cattle Specialist Name Role Phone Favian Maldonado MD, Shant Humphreys Primary Care Provider Encounter Details Date Type Department Care Team (Late st Contact Info) Description 11/21/2022 Lab Requisition [facility] [address] [place] [address] Low Amaya, DO [address] [place] [phone] Social History Tobacco Use Types Packs/Day Years Used Date Smoking Tobacco: Never Assessed Sex and Gender Information Value Date Recorded Sex Assigned at Not on file Legal 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 DECONTAMINATION TECHNICIAN Gender Identity Not on file Sexual Orientation Not on file documented as of this encounter Plan of Treatment Not on file documented as of this encounter Procedures Procedure Name Priority Date/Time Associated Diagnosis Comments PHOSPHORUS Routine 11/21/2022 4:40 AM DECONTAMINATION TECHNICIAN MAGNESIUM LEVEL Routine 11/21/2022 4:40 AM DECONTAMINATION TECHNICIAN BASIC METABOLIC PANEL Routine 11/21/2022 4:40 AM DECONTAMINATION TECHNICIAN documented in this encounter Results * MAGNESIUM LEVEL (11/21/2022 4:40 AM DECONTAMINATION TECHNICIAN) MAGNESIUM 1.8 1.6 - 2.4 mg/dL 11/21/2022 5:26 AM DECONTAMINATION TECHNICIAN [facility] Blood Collection / Unknown 11/21/2022 4:40 AM DECONTAMINATION TECHNICIAN 11/21/2022 5:08 AM DECONTAMINATION TECHNICIAN Low Amaya DO CHEMISTRY ORDERABLES Final R esult Performing Organization Address [facility]/ZIP Co de Phone Number [facility] CLIA # [id number] [id number] [place] [address] * PHOSPHORUS (11/21/2022 4:40 AM DECONTAMINATION TECHNICIAN) PHOSPHORUS 2.8 2.5 - 4.5 mg/dL 11/21/2022 5:26 AM [facility] Blood Collection / Unknown 11/21/2022 4:40 AM DECONTAMINATION TECHNICIAN 11/21/2022 5:08 AM DECONTAMINATION TECHNICIAN Low Amaya DO CHEMISTRY ORDERABLES Final R esult Performing Organization Address City/[facility]/ZIP Co de Phone Number [facility] CLIA # [id number] [address] [address] * (ABNORMAL) BASIC METABOLIC PANEL (11/21/2022 4:40 AM DECONTAMINATION TECHNICIAN) SODIUM 145 136 - 145 mmol/L 11/21/2022 5:26 AM [facility] [employer] [facility] POTASSIUM 3.5 3.5 - 5.1 mmol/L 11/21/2022 5:26 AM [facility] CHLORIDE 106 98 - 107 mmol/L 11/21/2022 5:26 AM [facility] CO2 31(H) 22 - 29 mmol/L 11/21/2022 5:26 AM [facility] CALCIUM 9.3 8.8 - 10.2 mg/dL 11/21/2022 5:26 AM [facility] BUN 29(H) 8 - 23 mg/dL 11/21/2022 5:26 AM [facility] CREATININE 0.95 0.67 - 1.17 mg/dL 11/21/2022 5:26 AM [facility] GLUCOSE 136(H) 74 - 99 mg/dL 11/21/2022 5:26 AM [facility] GFR >60 >=60 mL/min/1.7 3 sq meter 11/21/2022 5:26 AM [facility] Comment:eGFR calculated with 2020 CKD-EPI equation. Vegetarian diet, extremely high or low muscle mass, and may affect results. Cystatin C with Glomerular Filtration Rate is a suitable alternative for these patients. ANION GAP 8(L) 9 - 20 mmol/L 11/21/2022 5:26 AM [facility] Blood Collection / Unknown 11/21/2022 4:40 AM DECONTAMINATION TECHNICIAN 11/21/2022 5:08 AM DECONTAMINATION TECHNICIAN Low Amaya DO CHEMISTRY ORDERABLES Final R esult [facility] CLIA # [id number] [address] [place] [address] documented in this encounter Visit Diagnoses Not on filedocumented in this encounter Additional Health Concerns Infection Onset Date Last Indicated Resolved Time C Diff 11/17/2022 11/17/2022 01/16/2023 1:16 AM CDT documented as of this encounter Care Teams Beef Cattle Specialist Relationship Specialty Start Date End Date Shant Ballesteros Jr., MD [address] [place] [address] PCP - General Family Practice 01/19/14 documented as of this encounter
--- OUTSIDE RECORDS SUMMARY | 2025-05-22 12:08 | XMS_ITS | Encounter Summary ---
Author Organization [facility] Address 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 Gender Identity Not on file Sexual [...] - 145 mmol/L 12/20/2022 6:20 AM CDT [facility] POTASSIUM 5.4(H) 3.5 - 5.1 mmol/L 12/20/2022 6:20 AM CDT [facility] CHLORIDE 97(L) 98 - 107 mmol/L 12/20/2022 6:20 AM CDT [facility] CO2 26 22 - 29 mmol/L 12/20/2022 6:20 AM T [facility] CALCIUM 10.2 8.8 - 10.2 mg/dL 12/20/2022 6:20 AM T [facility] BUN 42(H) 8 - 23 mg/dL 12/20/2022 6:20 AM T [facility] CREATININE 1.10 0.67 - 1.17 mg/dL 12/20/2022 6:20 AM T [facility] GLUCOSE 120(H) 74 - 99 mg/dL 12/20/2022 6:20 AM T [facility] TOTAL PROTEIN 7.4 6.4 - 8.3 g/dL 12/20/2022 6:20 AM T [facility] ALBUMIN 3.6 3.5 - 5.2 g/dL 12/20/2022 6:20 AM T [facility] BILIRUBIN TOTAL 0.2 0.2 - 1.0 mg/dL 12/20/2022 6:20 AM T [facility] ALKALINE PHOSPHATASE 103 40 - 129 U/L 12/20/2022 6:20 AM CDT [facility] AST 27 10 - 50 U/L 12/20/2022 6:20 AM T [facility] ALT 34 <=50 U/L 12/20/2022 6:20 AM T [facility] GFR >60 >=60 mL/min/1.7 3 sq meter 12/20/2022 6:20 AM T [facility] Comment:eGFR calculated with 2020 CKD-EPI equation. Vegetarian diet, extremely high or low muscle mass, and may affect results. Cystatin C with Glomerular Filtration Rate is a suitable alternative for these patients. ANION GAP 11 9 - 20 mmol/L 12/20/2022 6:20 AM T [facility] Blood Collection / Unknown 12/20/2022 1:20 AM CDT 12/20/2022 6:05 AM CDT us Deborah Aguilar MD CHEMISTRY ORDERABLES Final Resu lt [facility] CLIA # [id number] [address] [place] [address] * (ABNORMAL) CBC WITH DIFFERENTIAL (12/20/2022 1:20 AM CDT) WBC 7.9 4.8 - 10.8 K/uL 12/20/2022 6:09 AM [facility] RBC 3.74(L) 4.60 - 6.20 M/uL 12/20/2022 6:09 AM [facility] HEMOGLOBIN 11.4(L) 14.0 - 18.0 g/dL 12/20/2022 6:09 AM [facility] HEMATOCRIT 35.9(L) 41.0 - 53.0 % 12/20/2022 6:09 AM [facility] MCV 96.0 84.0 - 103.0 fL 12/20/2022 6:09 AM [facility] MCH 30.5 27.0 - 34.0 pg 12/20/2022 6:09 AM [facility] MCHC 31.8 30.0 - 35.0 g/dL 12/20/2022 6:09 AM [facility] [employer] [facility] RDW 15.5(H) 11.0 - 14.5 % 12/20/2022 6:09 AM [facility] [employer] [facility] RDW-STDEV 55.0(H) 37.0 - 54.0 fL 12/20/2022 6:09 AM [facility] [employer] [facility] PLATELETS 279 140 - 440 K/uL 12/20/2022 6:09 AM [facility] [employer] [facility] MPV 10.5 8.9 - 12.8 fL 12/20/2022 6:09 AM [facility] [employer] [facility] NEUTROPHILS 54 42 - 75 % 12/20/2022 6:09 AM [facility] [employer] [facility] LYMPHOCYTES 22(L) 24 - 44 % 12/20/2022 6:09 AM [facility] [employer] [facility] MONOCYTES 13(H) 2 - 10 % 12/20/2022 6:09 AM [facility] [employer] [facility] EOSINOPHILS 10(H) 0 - 7 % 12/20/2022 6:09 AM [facility] [employer] [facility] BASOPHILS 1 0 - 1 % 12/20/2022 6:09 AM [facility] IMMATURE GRANULOCYTES 1 0 - 2 % 12/20/2022 6:09 AM [facility] [employer] [facility] NEUTROPHIL ABSOLUTE 4.27 2.00 - 8.00 K/uL 12/20/2022 6:09 AM [facility] LYMPHOCYTE ABSOLUTE 1.72 1.20 - 4.00 K/uL 12/20/2022 6:09 AM [facility] [employer] [facility] MONOCYTE ABSOLUTE 0.99(H) 0.10 - 0.60 K/uL 12/20/2022 6:09 AM [facility] EOSINOPHIL ABSOLUTE 0.76(H) 0.00 - 0.70 K/uL 12/20/2022 6:09 AM [facility] [employer] [facility] BASOPHILS ABSOLUTE 0.06 0.00 - 0.20 K/uL 12/20/2022 6:09 AM [facility] [employer] [facility] IMMATURE GRANULOCYTES ABSOLUTE 0.05 0.00 - 0.10 K/uL 12/20/2022 6:09 AM CDT [facility] [employer] [facility] Blood Collection / Unknown 12/20/2022 1:20 AM CDT 12/20/2022 6:05 AM CDT us Deborah Aguilar MD HEMATOLOGY ORDERABLES Final Res ult [facility] [employer] [facility] CLIA # [id number] [facility] [address] documented in this encounter Visit Diagnoses Not on filedocumented in this encounter Additional Health Concerns Infection Onset Date Last Indicated Resolved Time C Diff 11/17/2022 11/17/2022 01/16/2023 1:16 AM CDT documented as of this encounter Care Teams Case Supervisor Relationship Specialty Start Date End Date Shant Ballesteros Jr., MD [address] [place] [address] PCP - General Family Practice 01/19/14 documented as of this encounter
--- OUTSIDE RECORDS SUMMARY | 2025-05-22 12:08 | XMS_ITS | Encounter Summary ---
Author Organization [facility] Address [address] [place] [address] Care Team Providers Care Fire Apparatus Engineer Name Role Phone Favian Maldonado MD, Shant Humphreys Primary Care Provider Encounter Details Date Type Department Care Team (Late st Contact Info) Description 11/24/2022 Lab Requisition [facility] Laboratory Services [address] [place] [address] Andre Mary, MADHU [address] [facility] [address] [place] [address] Social History Tobacco Use Types Packs/Day Years Used Date Smoking Tobacco: Never Assessed Sex and Gender Information Value Date Recorded Sex Assigned at Not on file Legal 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 WOOL MIXER Gender Identity Not on file Sexual Orientation Not on file documented as of this encounter Plan of Treatment Not on file documented as of this encounter Procedures Procedure Name Priority Date/Time Associated Diagnosis Comments URINALYSIS W/REFLEX MICROSCOPIC Stat 11/24/2022 9:45 PM WOOL MIXER documented in this encounter Results * (ABNORMAL) URINALYSIS WITH REFLEX MICROSCOPIC (11/24/2022 9:45 PM WOOL MIXER) COLOR UA Yellow Pale to Dark Yellow 11/24/2022 11:07 PM WOOL MIXER [facility] CLARITY UA Clear Clear 11/24/2022 11:07 PM WOOL MIXER [facility] SPECIFIC GRAVITY UA 1.012 1.003 - 1.035 11/24/2022 11:07 PM [facility] PH UA 5.0 5.0 - 8.0 11/24/2022 11:07 PM [facility] LEUKOCYTE ESTERASE UA Negative Negative 11/24/2022 11:07 PM [facility] NITRITE UA Negative Negative 11/24/2022 11:07 PM [facility] PROTEIN UA Negative Negative 11/24/2022 11:07 PM [facility] GLUCOSE UA Negative Negative 11/24/2022 11:07 PM [facility] KETONES UA Negative Negative 11/24/2022 11:07 PM [facility] UROBILINOGEN UA <2.0 <2.0 mg/dL 11:07 PM [facility] BILIRUBIN UA Negative Negative 11/24/2022 11:07 PM [facility] BLOOD UA 1+(A) Negative 11/24/2022 11:07 PM [facility] WBC UA 0-2 0 - 2 /hpf 11/24/2022 11:07 PM [facility] RBC UA 0-2 0 - 2 /hpf 11/24/2022 11:07 PM [facility] BACTERIA UA Negative Negative /hpf 11/24/2022 11:07 PM [facility] EPITHELIAL CELLS, URINE 0-5 0 - 5 /hpf 11/24/2022 11:07 PM [facility] Urine URINE SPECIMEN OBTAINED BY CLEAN CATCH PROCEDURE / Unknown Collection / Unknown 11/24/2022 9:45 PM WOOL MIXER 11/24/2022 10:55 PM WOOL MIXER us Andre Mary CHANNEL DEVELOPMENT DIRECTOR URINE ORDERABLES Final R esult [facility] CLIA # [id number] [address] [address] documented in this encounter Visit Diagnoses Not on filedocumented in this encounter Additional Health Concerns Infection Onset Date Last Indicated Resolved Time C Diff 11/17/2022 11/17/2022 01/16/2023 1:16 AM CDT documented as of this encounter Care Teams Fire Apparatus Engineer Relationship Specialty Start Date End Date Shant Ballesteros Jr., MD [address] [place] [address] PCP - General Family Practice 01/19/14 documented as of this encounter
--- OUTSIDE RECORDS SUMMARY | 2025-05-22 12:09 | XMS_ITS | Encounter Summary ---
Author Organization [employer] [facility] Address [address] [place] [address] Care Team Providers Care Icu Manager Name Role Phone Favian Maldonado MD, Shant Humphreys Primary Care Provider Encounter Details Date Type Department Care Team (Late st Contact Info) Description 11/24/2022 Lab Requisition [facility] Laboratory Services [address] [place] [address] Andre Mary, MADHU [address] [facility] [address] [place] [address] Social History Tobacco Use Types Packs/Day Years Used Date Smoking Tobacco: Never Assessed Sex and Gender Information Value Date Recorded Sex Assigned at Not on file Legal 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 FLAP LINING BINDER Gender Identity Not on file Sexual Orientation Not on file documented as of this encounter Plan of Treatment Not on file documented as of this encounter Procedures Procedure Name Priority Date/Time Associated Diagnosis Comments EXTRA TUBE (SST/GOLD) Routine 11/24/2022 7:12 PM FLAP LINING BINDER LACTIC ACID Stat 11/24/2022 7:12 PM FLAP LINING BINDER PROCALCITONIN Stat 11/24/2022 6:37 PM FLAP LINING BINDER CBC WITH DIFFERENTIAL Stat 11/24/2022 6:37 PM [employer]AP [employer]IND[employer] BLOOD CULTURE Stat 11/24/2022 6:37 PM FLAP LINING BINDER BLOOD CULTURE Stat 11/24/2022 6:37 PM FLAP LINING BINDER COMPREHENSIVE METABOLIC PANEL Stat 11/24/2022 6:37 PM FLAP LINING BINDER documented in this encounter Results * EXTRA TUBE (SST/GOLD) (11/24/2022 7:12 PM FLAP LINING BINDER) Blood Collection / Unknown 11/24/2022 7:12 PM FLAP LINING BINDER 11/24/2022 7:42 PM FLAP LINING BINDER Andre Mary DIE FITTER CHEMISTRY ORDERABLES Fin al Result Performing Organization Address [facility] Co de Phone Number [facility] CLIA # [id number] [address] [place] [address] * LACTIC ACID (11/24/2022 7:12 PM FLAP LINING BINDER) LACTIC ACID 1.0 <=2.0 mmol/L 11/24/2022 7:47 PM FLAP LINING BINDER [facility] Blood Collection / Unknown 11/24/2022 7:12 PM FLAP LINING BINDER 11/24/2022 7:25 PM FLAP LINING BINDER Andre Mary DIE FITTER CHEMISTRY ORDERABLES Fin al Result Performing Organization Address [facility] Co de Phone Number [facility] CLIA # [id number] [address] [place] [address] * PROCALCITONIN (11/24/2022 6:37 PM FLAP LINING BINDER) PROCALCITONIN 0.08 <=0.08 ng/mL 11/24/2022 8:08 PM FLAP LINING BINDER [facility] Blood Collection / Unknown 11/24/2022 6:37 PM FLAP LINING BINDER 11/24/2022 7:25 PM FLAP LINING BINDER Narrative [facility] - 11/24/2022 8:08 PM FLAP LINING BINDER The utility of procalcitonin is limited/NOT recommended [...] ORDERABLES Fin al Result Performing Organization Address [facility]/ZIP Co de Phone Number [facility] CLIA # [id number] [address] [place], [place] [address] * BLOOD CULTURE (11/24/2022 6:37 PM FLAP LINING BINDER) [facility] Signature BLOOD CULTURE No growth 11/29/2022 10:32 PM FLAP LINING BINDER [facility] Blood Collection / Unknown 11/24/2022 6:37 PM FLAP LINING BINDER 11/24/2022 7:25 PM FLAP LINING BINDER Andre Mary NP MICROBIOLOGY - GENERAL O RDERABLES Final Result Performing Organization Address [facility] Co de Phone Number [facility] CLIA # [id number] [address] [place] [address] * BLOOD CULTURE (11/24/2022 6:37 PM FLAP LINING BINDER) Pathologist [facility] BLOOD CULTURE No growth 11/29/2022 10:32 PM FLAP LINING BINDER [facility] Blood Collection / Unknown 11/24/2022 6:37 PM FLAP LINING BINDER 11/24/2022 7:25 PM FLAP LINING BINDER Andre Mary NP MICROBIOLOGY - GENERAL O RDERABLES Final Result [facility] CLIA # [id number] [facility] [address] [address] [place] [address] * (ABNORMAL) CBC WITH DIFFERENTIAL (11/24/2022 6:37 PM FLAP LINING BINDER) [facility] WBC 8.1 4.8 - 10.8 K/uL 11/24/2022 7:42 PM [facility] RBC 2.66(L) 4.60 - 6.20 M/uL 11/24/2022 7:42 PM [facility] HEMOGLOBIN 7.9(L) 14.0 - 18.0 g/dL 11/24/2022 7:42 PM [facility] HEMATOCRIT 27.6(L) 41.0 - 53.0 % 11/24/2022 7:42 PM [facility] MCV 103.8(H) 84.0 - 103.0 fL 11/24/2022 7:42 PM [facility] MCH 29.7 27.0 - 34.0 pg 11/24/2022 7:42 PM [facility] MCHC 28.6(L) 30.0 - 35.0 g/dL 11/24/2022 7:42 PM [facility] RDW 18.6(H) 11.0 - 14.5 % 11/24/2022 7:42 PM [facility] RDW-STDEV 69.4(H) 37.0 - 54.0 fL 11/24/2022 7:42 PM [facility] PLATELETS 248 140 - 440 K/uL 11/24/2022 7:42 PM [facility] MPV 10.3 8.9 - 12.8 fL 11/24/2022 7:42 PM [facility] NEUTROPHILS 73 42 - 75 % 11/24/2022 7:42 PM [facility] LYMPHOCYTES 11(L) 24 - 44 % 11/24/2022 7:42 PM [facility] MONOCYTES 13(H) 2 - 10 % 11/24/2022 7:42 PM [facility] EOSINOPHILS 3 0 - 7 % 11/24/2022 7:42 PM [facility] BASOPHILS 0 0 - 1 % 11/24/2022 7:42 PM [facility] IMMATURE GRANULOCYTES 1 0 - 2 % 11/24/2022 7:42 PM [facility] NEUTROPHIL ABSOLUTE 5.86 2.00 - 8.00 K/uL 11/24/2022 7:42 PM [facility] LYMPHOCYTE ABSOLUTE 0.87(L) 1.20 - 4.00 K/uL 11/24/2022 7:42 PM [facility] MONOCYTE ABSOLUTE 1.02(H) 0.10 - 0.60 K/uL 11/24/2022 7:42 PM [facility] EOSINOPHIL ABSOLUTE 0.21 0.00 - 0.70 K/uL 11/24/2022 7:42 PM [facility] BASOPHILS ABSOLUTE 0.03 0.00 - 0.20 K/uL 11/24/2022 7:42 PM [facility] IMMATURE GRANULOCYTES ABSOLUTE 0.07 0.00 - 0.10 K/uL 11/24/2022 7:42 PM [facility] Blood Collection / Unknown 11/24/2022 6:37 PM FLAP LINING BINDER 11/24/2022 7:25 PM FLAP LINING BINDER Andre Mary NP HEMATOLOGY ORDERABLES Fi nal Result [facility] CLIA # [id number] [address] [address] [place] [address] * (ABNORMAL) COMPREHENSIVE METABOLIC PANEL (11/24/2022 6:37 PM [facility]) SODIUM 144 136 - 145 mmol/L 11/24/2022 8:06 PM [facility] POTASSIUM 4.6 3.5 - 5.1 mmol/L 11/24/2022 8:06 PM [facility] CHLORIDE 105 98 - 107 mmol/L 11/24/2022 8:06 PM [facility] CO2 28 22 - 29 mmol/L 11/24/2022 8:06 PM [facility] CALCIUM 9.4 8.8 - 10.2 mg/dL 11/24/2022 8:06 PM [facility] BUN 42(H) 8 - 23 mg/dL 11/24/2022 8:06 PM [facility] CREATININE 1.50(H) 0.67 - 1.17 mg/dL 11/24/2022 8:06 PM [facility] GLUCOSE 102(H) 74 - 99 mg/dL 11/24/2022 8:06 PM [facility] TOTAL PROTEIN 6.5 6.4 - 8.3 g/dL 11/24/2022 8:06 PM [facility] ALBUMIN 2.9(L) 3.5 - 5.2 g/dL 11/24/2022 8:06 PM [facility] BILIRUBIN TOTAL 0.4 0.2 - 1.0 mg/dL 11/24/2022 8:06 PM [facility] ALKALINE PHOSPHATASE 88 40 - 129 U/L 11/24/2022 8:06 PM [facility] AST 12 10 - 50 U/L 11/24/2022 8:06 PM [facility] ALT 9 <=50 U/L 11/24/2022 8:06 PM [facility] GFR 51(L) >=60 mL/min/1. 73 sq meter 11/24/2022 8:06 PM FLAP LINING BINDER [facility] Comment:eGFR calculated with 2020 CKD-EPI equation. Vegetarian diet, extremely high or low muscle mass, and may affect results. Cystatin C with Glomerular Filtration Rate is a suitable alternative for these patients. ANION GAP 11 9 - 20 mmol/L 11/24/2022 8:06 PM FLAP LINING BINDER [facility] Blood Collection / Unknown 11/24/2022 6:37 PM FLAP LINING BINDER 11/24/2022 7:25 PM FLAP LINING BINDER us Andre Mary DIE FITTER CHEMISTRY ORDERABLES Fin al Result [facility] CLIA # [id number] [facility] [address] documented in this encounter Visit Diagnoses Not on filedocumented in this encounter Additional Health Concerns Infection Onset Date Last Indicated Resolved Time C Diff 11/17/2022 11/17/2022 01/16/2023 1:16 AM CDT documented as of this encounter Care Teams Icu Manager Relationship Specialty Start Date End Date Shant Ballesteros Jr., MD [address] [place] [address] PCP - General Family Practice 01/19/14 documented as of this encounter
--- OUTSIDE RECORDS SUMMARY | 2025-05-22 12:09 | XMS_ITS | Encounter Summary ---
Author Organization [facility] Address 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 Gender Identity Not on file Sexual [...] Sarmiento MD HEMATOLOGY ORDERABLES Final Resu lt [facility] CLIA # [id number] [facility] [address] * (ABNORMAL) COMPREHENSIVE METABOLIC PANEL (12/19/2022 4:50 AM CDT) SODIUM 135(L) 136 - 145 mmol/L 12/19/2022 10:48 AM CDT [facility] POTASSIUM 5.3(H) 3.5 - 5.1 mmol/L 12/19/2022 10:48 AM CDT [facility] CHLORIDE 99 98 - 107 mmol/L 12/19/2022 10:48 AM CDT [facility] CO2 25 22 - 29 mmol/L 12/19/2022 10:48 AM CDT [facility] CALCIUM 10.4(H) 8.8 - 10.2 mg/dL 12/19/2022 10:48 AM CDT [facility] BUN 44(H) 8 - 23 mg/dL 12/19/2022 10:48 AM CDT [facility] CREATININE 1.13 0.67 - 1.17 mg/dL 12/19/2022 10:48 AM CDT [facility] GLUCOSE 116(H) 74 - 99 mg/dL 12/19/2022 10:48 AM CDT [facility] TOTAL PROTEIN 7.5 6.4 - 8.3 g/dL 12/19/2022 10:48 AM CDT [facility] ALBUMIN 3.8 3.5 - 5.2 g/dL 12/19/2022 10:48 AM CDT [facility] BILIRUBIN TOTAL <0.2(L) 0.2 - 1.0 mg/dL 12/19/2022 10:48 AM CDT [facility] ALKALINE PHOSPHATASE 111 40 - 129 U/L 12/19/2022 10:48 AM CDT [facility] AST 27 10 - 50 U/L 12/19/2022 10:48 AM CDT [facility] ALT 38 <=50 U/L 12/19/2022 10:48 AM CDT [facility] GFR >60 >=60 mL/min/1. 73 sq meter 12/19/2022 10:48 AM CDT [facility] Comment:eGFR calculated with 2020 CKD-EPI equation. Vegetarian diet, extremely high or low muscle mass, and may affect results. Cystatin C with Glomerular Filtration Rate is a suitable alternative for these patients. ANION GAP 11 9 - 20 mmol/L 12/19/2022 10:48 AM CDT [facility] Blood Collection / Unknown 12/19/2022 4:50 AM CDT 12/19/2022 10:29 AM CDT us Esther Sarmiento MD CHEMISTRY ORDERABLES Final [facility]ul t [id number] [address] [place] [address] documented in this encounter Visit Diagnoses Not on filedocumented in this encounter Additional Health Concerns Infection Onset Date Last Indicated Resolved Time C Diff 11/17/2022 11/17/2022 01/16/2023 1:16 AM CDT documented as of this encounter Care Teams Cadmium Burner Relationship Specialty Start Date End Date Shant Ballesteros Jr., MD [address] [place] [id number] PCP - General Family Practice 01/19/14 documented as of this encounter
--- OUTSIDE RECORDS SUMMARY | 2025-05-22 12:09 | XMS_ITS | Encounter Summary ---
Author Organization [facility] Address [address] [place] [address] Care Team Providers Care Tray Checker Name Role Phone Favian Maldonado MD, Shant Humphreys Primary Care Provider Encounter Details Date Type Department Care Team (Late st Contact Info) Description 12/17/[address] 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 Gender Identity Not on file Sexual Orientation Not on file documented as of this encounter Plan of Treatment Not on file documented as of this encounter Procedures Procedure Name Priority Date/Time Associated Diagnosis Comments CBC WITH DIFFERENTIAL Routine 12/17/2022 3:30 AM CDT documented in this encounter Results * (ABNORMAL) CBC WITH DIFFERENTIAL (12/17/2022 3:30 AM CDT) [facility] WBC 7.8 4.8 - 10.8 K/uL 12/17/2022 6:20 AM T [facility] RBC 3.85(L) 4.60 - 6.20 M/uL 12/17/2022 6:20 AM T [facility] HEMOGLOBIN 11.5(L) 14.0 - 18.0 g/dL 12/17/2022 6:20 AM T [facility] HEMATOCRIT 36.6(L) 41.0 - 53.0 % 12/17/2022 6:20 AM T [facility] MCV 95.1 84.0 - 103.0 fL 12/17/2022 6:[address] [facility] MCH 29.9 27.0 - 34.0 pg 12/17/2022 6:[address] [facility] MCHC 31.4 30.0 - 35.0 g/dL 12/17/2022 6:[address] [facility] RDW 15.6(H) 11.0 - 14.5 % 12/17/2022 6:[address] [facility] RDW-STDEV 54.4(H) 37.0 - 54.0 fL 12/17/2022 6:[address] [facility] PLATELETS 282 140 - 440 K/uL 12/17/2022 6:[address] [facility] MPV 10.7 8.9 - 12.8 fL 12/17/2022 6:[address] [facility] NEUTROPHILS 58 42 - 75 % 12/17/2022 6:[address] [facility] LYMPHOCYTES 22(L) 24 - 44 % 12/17/2022 6:[address] [facility] MONOCYTES 12(H) 2 - 10 % 12/17/2022 6:[address] [facility] EOSINOPHILS 8(H) 0 - 7 % 12/17/2022 6:[address] [facility] BASOPHILS 1 0 - 1 % 12/17/2022 6:20 AM CDT [facility] IMMATURE GRANULOCYTES 1 0 - 2 % 12/17/2022 6:20 AM CDT [facility] NEUTROPHIL ABSOLUTE 4.48 2.00 - 8.00 K/uL 12/17/2022 6:20 AM CDT [facility] LYMPHOCYTE ABSOLUTE 1.67 1.20 - 4.00 K/uL 12/17/2022 6:20 AM CDT [facility] MONOCYTE ABSOLUTE 0.90(H) 0.10 - 0.60 K/uL 12/17/2022 6:20 AM CDT [facility] EOSINOPHIL ABSOLUTE 0.61 0.00 - 0.70 K/uL 12/17/2022 6:20 AM CDT [facility] BASOPHILS ABSOLUTE 0.06 0.00 - 0.20 K/uL 12/17/2022 6:20 AM CDT [facility] IMMATURE GRANULOCYTES ABSOLUTE 0.04 0.00 - 0.10 K/uL 12/17/2022 6:20 AM CDT [facility] Blood Collection / Unknown 12/17/2022 3:30 AM CDT 12/17/2022 6:14 AM CDT us Andre Mary PRESSROOM WORKER HEMATOLOGY ORDERABLES Fi nal Result Performing Organization Address City/State/[facility] Co de Phone Number [facility] CLIA # [id number] [address] [place] [address] documented in this encounter Visit Diagnoses Not on filedocumented in this encounter Additional Health Concerns Infection Onset Date Last Indicated Resolved Time C Diff 11/17/2022 11/17/2022 01/16/2023 1:16 AM CDT documented as of this encounter Care Teams Tray Checker Relationship Specialty Start Date End Date Shant Ballesteros Jr., MD [address] [place] [address] PCP - General Family Practice 01/19/14 documented as of this encounter
--- OUTSIDE RECORDS SUMMARY | 2025-05-22 12:09 | XMS_ITS | Encounter Summary ---
Author Organization [employer] Address 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 Gender Identity Not on file Sexual Orientation Not on file documented as of this encounter Plan of Treatment Not on file documented as of this encounter Procedures Procedure Name Priority Date/Time Associated Diagnosis Comments PHOSPHORUS Routine 12/07/2022 3:30 AM CORPORATE COMMUNICATIONS ASSOCIATE MAGNESIUM LEVEL Routine 12/07/2022 3:30 AM CORPORATE COMMUNICATIONS ASSOCIATE BASIC METABOLIC PANEL Routine 12/07/2022 3:30 AM CORPORATE COMMUNICATIONS ASSOCIATE documented in this encounter Results * (ABNORMAL) PHOSPHORUS (12/07/2022 3:30 AM CORPORATE COMMUNICATIONS ASSOCIATE) PHOSPHORUS 4.7(H) 2.5 - 4.5 mg/dL 12/07/2022 5:41 AM CORPORATE COMMUNICATIONS ASSOCIATE [facility] Blood Collection / Unknown 12/07/2022 3:30 AM CORPORATE COMMUNICATIONS ASSOCIATE 12/07/2022 5:10 AM CORPORATE COMMUNICATIONS ASSOCIATE Low Monique DO CHEMISTRY ORDERABLES Final R esult Performing Organization Address City/[facility]/ZIP Co de Phone Number [facility] CLIA # [id number] [address] [place] [address] * MAGNESIUM LEVEL (12/07/2022 3:30 AM CORPORATE COMMUNICATIONS ASSOCIATE) MAGNESIUM 1.9 1.6 - 2.4 mg/dL 12/07/2022 5:41 AM [facility] Blood Collection / Unknown 12/07/2022 3:30 AM CORPORATE COMMUNICATIONS ASSOCIATE 12/07/2022 5:10 AM CORPORATE COMMUNICATIONS ASSOCIATE Low Amaya DO CHEMISTRY ORDERABLES Final R esult Performing Organization Address City/[facility]/ZIP Co de Phone Number [facility] CLIA # [id number] [id number] [place] [address] * (ABNORMAL) BASIC METABOLIC PANEL (12/07/2022 3:30 AM CORPORATE COMMUNICATIONS ASSOCIATE) SODIUM 137 136 - 145 mmol/L 12/07/2022 5:41 AM [facility] [employer] POTASSIUM 4.2 3.5 - 5.1 mmol/L 12/07/2022 5:41 AM [facility] [employer] [facility] [facility] CHLORIDE 103 98 - 107 mmol/L 12/07/2022 5:41 AM [facility] [employer] [facility] CO2 26 22 - 29 mmol/L 12/07/2022 5:41 AM [facility] CALCIUM 9.5 8.8 - 10.2 mg/dL 12/07/2022 5:41 AM [facility] [employer] BUN 36(H) 8 - 23 mg/dL 12/07/2022 5:41 AM [facility] CREATININE 0.95 0.67 - 1.17 mg/dL 12/07/2022 5:41 AM [facility] GLUCOSE 102(H) 74 - 99 mg/dL 12/07/2022 5:41 AM [facility] GFR >60 >=60 mL/min/1.7 3 sq meter 12/07/2022 5:41 AM [facility] Comment:eGFR calculated with 2020 CKD-EPI equation. Vegetarian diet, extremely high or low muscle mass, and may affect results. Cystatin C with Glomerular Filtration Rate is a suitable alternative for these patients. ANION GAP 8(L) 9 - 20 mmol/L 12/07/2022 5:41 AM [facility] Blood Collection / Unknown 12/07/2022 3:30 AM CORPORATE COMMUNICATIONS ASSOCIATE 12/07/2022 5:10 AM CORPORATE COMMUNICATIONS ASSOCIATE Low Amaya DO CHEMISTRY ORDERABLES Final R esult [facility] CLIA # [id number] [address] [place] [address] documented in this encounter Visit Diagnoses Not on filedocumented in this encounter Additional Health Concerns Infection Onset Date Last Indicated Resolved Time C Diff 11/17/2022 11/17/2022 01/16/2023 1:16 AM CDT documented as of this encounter Care Teams Belt Loop Cutter Relationship Specialty Start Date End Date Shant Ballesteros Jr., MD [address] [place] [address] PCP - General Family Practice 01/19/14 documented as of this encounter
--- OUTSIDE RECORDS SUMMARY | 2025-05-22 12:09 | XMS_ITS | Encounter Summary ---
Author Organization [employer] Address [address] [place] [address] Care Team Providers Care Chemistry Research Assistant Name Role Phone Favian Maldonado MD, Shant Humphreys Primary Care Provider Encounter Details Date Type Department Care Team (Late st Contact Info) Description 12/02/2022 Lab Requisition [facility] Laboratory Services [address] [place] [address] Joelle David MD [address] [facility] [address] [place] [id number] Social History Tobacco Use Types Packs/Day Years Used Date Smoking Tobacco: Never Assessed Sex and Gender Information Value Date Recorded Sex Assigned at Not on file Legal 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 Gender Identity Not on file Sexual Orientation Not on file documented as of this encounter Plan of Treatment Not on file documented as of this encounter Procedures Procedure Name Priority Date/Time Associated Diagnosis Comments C-REACTIVE PROTEIN Routine 12/02/2022 3: 50 AM ENERGY AUDIT ADVISOR documented in this encounter Results * (ABNORMAL) C-REACTIVE PROTEIN (12/02/2022 3:50 AM ENERGY AUDIT ADVISOR) CRP 19.3(H) 0.0 - 5.0 mg/L 12/02/2022 5:27 AM ENERGY AUDIT ADVISOR [facility] Blood Collection / Unknown 12/02/2022 3:50 AM ENERGY AUDIT ADVISOR 12/02/2022 5:13 AM ENERGY AUDIT ADVISOR Joelle David MD CHEMISTRY ORDERABLES Final Resu lt [facility] # [id number] [address] [facility] [place] [address] documented in this encounter Visit Diagnoses Not on filedocumented in this encounter Additional Health Concerns Infection Onset Date Last Indicated Resolved Time C Diff 11/17/2022 11/17/2022 01/16/2023 1:16 AM CDT documented as of this encounter Care Teams Chemistry Research Assistant Relationship Specialty Start Date End Date hSant Ballesteros Jr., MD [address] [place] [address] PCP - General Family Practice 01/19/14 documented as of this encounter
--- OUTSIDE RECORDS SUMMARY | 2025-05-22 12:09 | XMS_ITS | Clinical Summary ---
Author Organization [facility] Address [address] [facility] [address] 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
--- OUTSIDE RECORDS SUMMARY | 2025-05-22 12:09 | XMS_ITS | Encounter Summary ---
Author Organization [facility] Address [address] [place] [address] Care Team Providers Care Waiter/Waitress Tavern Name Role Phone Favian Maldonado MD, Shant Humphreys Primary Care Provider Encounter Details Date Type Department Care Team (Late st Contact Info) Description 12/09/2022 Lab Requisition [facility] Laboratory Services [address] [place] [address] Esther Sarmiento MD [address] [place] [address] Social History Tobacco Use Types Packs/Day Years Used Date Smoking Tobacco: Never Assessed Sex and Gender Information Value Date Recorded Sex Assigned at Not on file Legal 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 COMMODITY ANALYST Gender Identity Not on file Sexual [...] - 4.5 mg/dL 12/09/2022 6:34 AM CDT [facility] [employer] [facility] Blood Collection / Unknown 12/09/2022 4:20 AM CDT 12/09/2022 6:15 AM CDT Esther Sarmiento MD CHEMISTRY ORDERABLES Final Resul t Performing Organization Address [facility] Co de Phone Number [facility] CLIA # [id number] [address] [address] * MAGNESIUM LEVEL (12/09/2022 4:20 AM CDT) MAGNESIUM 2.0 1.6 - 2.4 mg/dL 12/09/2022 6:34 AM CDT [facility] [employer] [facility] Blood Collection / Unknown 12/09/2022 4:20 AM CDT 12/09/2022 6:15 AM CDT Esther Sarmiento MD CHEMISTRY ORDERABLES Final Resul t Performing Organization Address [facility] Co de Phone Number [facility] [employer] [facility] CLIA # [id number] [address] [address] * (ABNORMAL) COMPREHENSIVE METABOLIC PANEL (12/09/2022 4:20 AM CDT) SODIUM 136 136 - 145 mmol/L 12/09/2022 6:34 AM CDT [facility] [employer] [facility] POTASSIUM 4.2 3.5 - 5.1 mmol/L 12/09/2022 6:34 AM CDT [facility] [employer] [facility] CHLORIDE 103 98 - 107 mmol/L 12/09/2022 6:34 AM CDT [facility] CO2 27 22 - 29 mmol/L 12/09/2022 6:34 AM CDT [facility] [employer] [facility] CALCIUM 9.8 8.8 - 10.2 mg/dL 12/09/2022 6:34 AM CDT [facility] [employer] [facility] BUN 34(H) 8 - 23 mg/dL 12/09/2022 6:34 AM CDT [facility] CREATININE 0.89 0.67 - 1.17 mg/dL 12/09/2022 6:34 AM T [facility] GLUCOSE 136(H) 74 - 99 mg/dL 12/09/2022 6:34 AM T [facility] TOTAL PROTEIN 7.2 6.4 - 8.3 g/dL 12/09/2022 6:34 AM [facility] ALBUMIN 3.4(L) 3.5 - 5.2 g/dL 12/09/2022 6:34 AM T [facility] BILIRUBIN TOTAL 0.2 0.2 - 1.0 mg/dL 12/09/2022 6:34 AM [facility] ALKALINE PHOSPHATASE 116 40 - 129 U/L 12/09/2022 6:34 AM [facility] AST 16 10 - 50 U/L 12/09/2022 6:34 AM [facility] ALT 17 <=50 U/L 12/09/2022 6:34 AM [facility] GFR >60 >=60 mL/min/1.7 3 sq meter 12/09/2022 6:34 AM [facility] Comment:eGFR calculated with 2020 CKD-EPI equation. Vegetarian diet, extremely high or low muscle mass, and may affect results. Cystatin C with Glomerular Filtration Rate is a suitable alternative for these patients. ANION GAP 6(L) 9 - 20 mmol/L 12/09/2022 6:34 AM [facility] Blood Collection / Unknown 12/09/2022 4:20 AM CDT 12/09/2022 6:15 AM CDT us Esther Sarmiento MD CHEMISTRY ORDERABLES Final Resul t [facility] CLIA # [id number] [address] [address] documented in this encounter Visit Diagnoses Not on filedocumented in this encounter Additional Health Concerns Infection Onset Date Last Indicated Resolved Time C Diff 11/17/2022 11/17/2022 01/16/2023 1:16 AM CDT documented as of this encounter Care Teams Waiter/Waitress Tavern Relationship Specialty Start Date End Date Shant Ballesteros Jr., MD [address] [place] [address] PCP - General Family Practice 01/19/14 documented as of this encounter
--- OUTSIDE RECORDS SUMMARY | 2025-05-22 12:09 | XMS_ITS | Encounter Summary ---
Author Organization [employer] [facility] Address [address] [place] [address] Care Team Providers Care It Architecture Analyst Name Role Phone Favian Maldonado MD, Shant Humphreys Primary Care Provider Encounter Details Date Type Department Care Team (Late st Contact Info) Description 11/19/2022 Lab Requisition [facility] Laboratory Services [address] [place] [address] [place] [address] Low Amaya, DO [address] [place] [phone] Social History Tobacco Use Types Packs/Day Years Used Date Smoking Tobacco: Never Assessed Sex and Gender Information Value Date Recorded Sex Assigned at Not on file Legal 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 PROFESSIONAL ARCHITECT Gender Identity Not on file Sexual Orientation Not on file documented as of this encounter Plan of Treatment Not on file documented as of this encounter Procedures Procedure Name Priority Date/Time Associated Diagnosis Comments TRIGLYCERIDE Routine 11/19/2022 2:55 AM PROFESSIONAL ARCHITECT PHOSPHORUS Routine 11/19/2022 2:55 AM PROFESSIONAL ARCHITECT MAGNESIUM LEVEL Routine 11/19/2022 2:55 AM PROFESSIONAL ARCHITECT COMPREHENSIVE METABOLIC PANEL Routine 11/19/2022 2:55 AM PROFESSIONAL ARCHITECT documented in this encounter Results * TRIGLYCERIDE (11/19/2022 2:55 AM PROFESSIONAL ARCHITECT) TRIGLYCERIDE 126 <150 mg/dL 11/19/2022 6:43 AM PROFESSIONAL ARCHITECT [facility] Blood Collection / Unknown 11/19/2022 2:55 AM PROFESSIONAL ARCHITECT 11/19/2022 6:22 AM PROFESSIONAL ARCHITECT Narrative [facility] - 11/19/2022 6:43 AM PROFESSIONAL ARCHITECT TRIGLYCERIDES mg/dL Normal < 150 Borderline High 150 - 199 High 200 - 499 Very High >= 500 Based on AHA/NCEP Guidelines. Low Amaya DO CHEMISTRY ORDERABLES Final R esult Performing Organization Address [facility] Co de Phone Number [facility] CLIA # [id number] [address] [facility] [place] [address] * PHOSPHORUS (11/19/2022 2:55 AM PROFESSIONAL ARCHITECT) PHOSPHORUS 4.4 2.5 - 4.5 mg/dL 11/19/2022 6:43 AM PROFESSIONAL ARCHITECT [facility] Blood Collection / Unknown 11/19/2022 2:55 AM PROFESSIONAL ARCHITECT 11/19/2022 6:22 AM PROFESSIONAL ARCHITECT Low Amaya DO CHEMISTRY ORDERABLES Final R esult Performing Organization Address [facility] Co de Phone Number [facility] CLIA # [id number] [address] [address] * MAGNESIUM LEVEL (11/19/2022 2:55 AM PROFESSIONAL ARCHITECT) MAGNESIUM 1.9 1.6 - 2.4 mg/dL 11/19/2022 6:43 AM PROFESSIONAL ARCHITECT [facility] Blood Collection / Unknown 11/19/2022 2:55 AM PROFESSIONAL ARCHITECT 11/19/2022 6:22 AM PROFESSIONAL ARCHITECT Low Amaya DO CHEMISTRY ORDERABLES Final R esult Performing Organization Address [facility] Co de Phone Number [facility] CLIA # [id number] [address] [address] [place] [address] * (ABNORMAL) COMPREHENSIVE METABOLIC PANEL (11/19/2022 2:55 AM PROFESSIONAL ARCHITECT) SODIUM 144 136 - 145 mmol/L 11/19/2022 6:43 AM [facility] POTASSIUM 3.5 3.5 - 5.1 mmol/L 11/19/2022 6:43 AM [facility] CHLORIDE 105 98 - 107 mmol/L 11/19/2022 6:43 AM [facility] CO2 32(H) 22 - 29 mmol/L 11/19/2022 6:43 AM [facility] CALCIUM 9.1 8.8 - 10.2 mg/dL 11/19/2022 6:43 AM [facility] BUN 22 8 - 23 mg/dL 11/19/2022 6:43 AM [facility] CREATININE 0.99 0.67 - 1.17 mg/dL 11/19/2022 6:43 AM [facility] GLUCOSE 169(H) 74 - 99 mg/dL 11/19/2022 6:43 AM [facility] TOTAL PROTEIN 6.6 6.4 - 8.3 g/dL 11/19/2022 6:43 AM [facility] ALBUMIN 3.0(L) 3.5 - 5.2 g/dL 11/19/2022 6:43 AM [facility] BILIRUBIN TOTAL 0.2 0.2 - 1.0 mg/dL 11/19/2022 6:43 AM [facility] ALKALINE PHOSPHATASE 64 40 - 129 U/L 11/19/2022 6:43 AM [facility] AST 13 10 - 50 U/L 11/19/2022 6:43 AM [facility] ALT 8 <=50 U/L 11/19/2022 6:43 AM [facility] GFR >60 >=60 mL/min/1.7 3 sq meter 11/19/2022 6:43 AM PROFESSIONAL ARCHITECT [facility] Comment:eGFR calculated with 2020 CKD-EPI equation. Vegetarian diet, extremely high or low muscle mass, and may affect results. Cystatin C with Glomerular Filtration Rate is a suitable alternative for these patients. ANION GAP 7(L) 9 - 20 mmol/L 11/19/2022 6:43 AM PROFESSIONAL ARCHITECT [facility] Blood Collection / Unknown 11/19/2022 2:55 AM PROFESSIONAL ARCHITECT 11/19/2022 6:22 AM PROFESSIONAL ARCHITECT us Low Amaya DO CHEMISTRY ORDERABLES Final R esult [facility] CLIA # [id number] [address] [address] documented in this encounter Visit Diagnoses Not on filedocumented in this encounter Additional Health Concerns Infection Onset Date Last Indicated Resolved Time C Diff 11/17/2022 11/17/2022 01/16/2023 1:16 AM CDT documented as of this encounter Care Teams It Architecture Analyst Relationship Specialty Start Date End Date Shant Ballesteros Jr., MD [address] [place] [address] PCP - General Family Practice 01/19/14 documented as of this encounter
--- OUTSIDE RECORDS SUMMARY | 2025-05-22 12:09 | XMS_ITS | Encounter Summary ---
Author Organization [employer] [facility] Address [address] [place] [address] Care Team Providers Care Dual Rate Supervisor Name Role Phone Favian Maldonado MD, Shant Humphreys Primary Care Provider Encounter Details Date Type Department Care Team (Late st Contact Info) Description 11/17/2022 Lab Requisition [facility] Laboratory Services [address] [address] [place] [address] Cary Javier PA-C [address] [place] [address] Social History Tobacco Use Types Packs/Day Years Used Date Smoking Tobacco: Never Assessed Sex and Gender Information Value Date Recorded Sex Assigned at Not on file Legal 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 SALES PROFESSIONAL Gender Identity Not on file Sexual Orientation Not on file documented as of this encounter Plan of Treatment Not on file documented as of this encounter Procedures Procedure Name Priority Date/Time Associated Diagnosis Comments C. DIFFICILE DETECTION Routine 11/17/2022 10:45 AM SALES PROFESSIONAL documented in this encounter Results * (ABNORMAL) C. DIFFICILE DETECTION (11/17/2022 10:45 AM SALES PROFESSIONAL) TOXIGENIC C DIFFICILE DETECTED( A) Not Detected 11/17/2022 1:45 PM SALES PROFESSIONAL [facility] [employer] [facility] Stool STOOL SPECIMEN / Unknown Collection / Unknown 11/17/2022 10:45 AM SALES PROFESSIONAL 11/17/2022 12:20 PM SALES PROFESSIONAL Narrative [facility] [employer] [facility] - 11/17/2022 1:45 PM SALES PROFESSIONAL Cdiff detected called to Cait Feng [facility] by CATRACHO REINA on 11/17/2022 at [...] - GENERAL ORDERAB LES Final Result [facility] [employer] [facility] CLIA # [id number] [facility] [address] documented in this encounter Visit Diagnoses Not on filedocumented in this encounter Additional Health Concerns Infection Onset Date Last Indicated Resolved Time C Diff 11/17/2022 11/17/2022 01/16/2023 1:16 AM CDT documented as of this encounter Care Teams Dual Rate Supervisor Relationship Specialty Start Date End Date Shant Ballesteros Jr., MD [address] [place] [address] PCP - General Family Practice 01/19/14 documented as of this encounter
--- OUTSIDE RECORDS SUMMARY | 2025-05-22 12:09 | XMS_ITS | Encounter Summary ---
Author Organization [employer] Address [address] [place] [address] Care Team Providers Care Literacy Education Professor Name Role Phone Favian Maldonado MD, Shant Humphreys Primary Care Provider Encounter Details Date Type Department Care Team (Late st Contact Info) Description 11/23/2022 Lab Requisition [facility] Laboratory Services [address] [place] [address] [place] [address] Low Amaya, DO [address] [place] [phone] Social History Tobacco Use Types Packs/Day Years Used Date Smoking Tobacco: Never Assessed Sex and Gender Information Value Date Recorded Sex Assigned at Not on file Legal 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 BOAT CAMP OPERATOR Gender Identity Not on file Sexual Orientation Not on file documented as of this encounter Plan of Treatment Not on file documented as of this encounter Procedures Procedure Name Priority Date/Time Associated Diagnosis Comments PHOSPHORUS Routine 11/23/2022 4:30 AM BOAT CAMP OPERATOR MAGNESIUM LEVEL Routine 11/23/2022 4:30 AM BOAT CAMP OPERATOR BASIC METABOLIC PANEL Routine 11/23/2022 4:30 AM BOAT CAMP OPERATOR documented in this encounter Results * PHOSPHORUS (11/23/2022 4:30 AM BOAT CAMP OPERATOR) PHOSPHORUS 4.1 2.5 - 4.5 mg/dL 11/23/2022 6:08 AM BOAT CAMP OPERATOR [facility] Blood Collection / Unknown 11/23/2022 4:30 AM BOAT CAMP OPERATOR 11/23/2022 5:49 AM BOAT CAMP OPERATOR Lwo Amaya DO CHEMISTRY ORDERABLES Final R critical access hospital Performing Organization Address [facility]/ZIP Co de Phone Number [facility] CLIA # [id number] [address] [facility] [place] [address] * MAGNESIUM LEVEL (11/23/2022 4:30 AM BOAT CAMP OPERATOR) MAGNESIUM 1.9 1.6 - 2.4 mg/dL 11/23/2022 6:08 AM [facility] Blood Collection / Unknown 11/23/2022 4:30 AM BOAT CAMP OPERATOR 11/23/2022 5:49 AM BOAT CAMP OPERATOR Low Amaya DO CHEMISTRY ORDERABLES Final R esult Performing Organization Address [facility] Co de Phone Number [facility] CLIA # [id number] [address] [address] * (ABNORMAL) BASIC METABOLIC PANEL (11/23/2022 4:30 AM BOAT CAMP OPERATOR) SODIUM 142 136 - 145 mmol/L 11/23/2022 6:08 AM [facility] POTASSIUM 4.3 3.5 - 5.1 mmol/L 11/23/2022 6:08 AM [facility] [place] [facility] Comment:Slightly hemolyzed. Result may be falsely elevated. CHLORIDE 104 98 - 107 mmol/L 11/23/2022 6:08 AM [facility] CO2 30(H) 22 - 29 mmol/L 11/23/2022 6:08 AM [facility] CALCIUM 9.5 8.8 - 10.2 mg/dL 11/23/2022 6:08 AM [facility] BUN 25(H) 8 - 23 mg/dL 11/23/2022 6:08 AM [facility] CREATININE 0.92 0.67 - 1.17 mg/dL 11/23/2022 6:08 AM [facility] GLUCOSE 135(H) 74 - 99 mg/dL 11/23/2022 6:08 AM [facility] GFR >60 >=60 mL/min/1.7 3 sq meter 11/23/2022 6:08 AM [facility] Comment:eGFR calculated with 2020 CKD-EPI equation. Vegetarian diet, extremely high or low muscle mass, and may affect results. Cystatin C with Glomerular Filtration Rate is a suitable alternative for these patients. ANION GAP 8(L) 9 - 20 mmol/L 11/23/2022 6:08 AM [facility] Blood Collection / Unknown 11/23/2022 4:30 AM BOAT CAMP OPERATOR 11/23/2022 5:49 AM BOAT CAMP OPERATOR Low Amaya DO CHEMISTRY ORDERABLES Final R esult [facility] CLIA # [id number] [address] [place] [address] documented in this encounter Visit Diagnoses Not on filedocumented in this encounter Additional Health Concerns Infection Onset Date Last Indicated Resolved Time C Diff 11/17/2022 11/17/2022 01/16/2023 1:16 AM CDT documented as of this encounter Care Teams Literacy Education Professor Relationship Specialty Start Date End Date Shant Ballesteros Jr., MD [address] [place] [address] PCP - General Family Practice 01/19/14 documented as of this encounter
--- OUTSIDE RECORDS SUMMARY | 2025-05-22 12:09 | XMS_ITS | Encounter Summary ---
Author Organization [employer] [facility] Address [address] [place] [address] Care Team Providers Care Relay Mechanic Name Role Phone Favian Maldonado MD, Shant Humphreys Primary Care Provider Encounter Details Date Type Department Care Team (Late st Contact Info) Description 11/19/2022 Lab Requisition [facility] Laboratory Services [address] [place] [address] Low Amaya, DO [address] [place] [address] Social History Tobacco Use Types Packs/Day Years Used Date Smoking Tobacco: Never Assessed Sex and Gender Information Value Date Recorded Sex Assigned at Not on file Legal 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 EXPLOSIVE OPERATOR Gender Identity Not on file Sexual Orientation Not on file documented as of this encounter Plan of Treatment Not on file documented as of this encounter Procedures Procedure Name Priority Date/Time Associated Diagnosis Comments CALCIUM IONIZED Routine 11/19/2022 3:45 PM EXPLOSIVE OPERATOR documented in this encounter Results * CALCIUM IONIZED (11/19/2022 3:45 PM EXPLOSIVE OPERATOR) CALCIUM IONIZED 5.2 4.8 - 5.6 mg/dL 11/21/2022 10:53 AM EXPLOSIVE OPERATOR [facility] Blood Collection / Unknown 11/19/2022 3:45 PM EXPLOSIVE OPERATOR 11/20/2022 7:56 AM EXPLOSIVE OPERATOR Narrative [facility] - 11/21/2022 10:53 AM EXPLOSIVE OPERATOR Performing Organization Information: Site ID: [id number] Name: [facility] Address: [address] [address] Director: Andrew Alvarado MD us Low Amaya DO CHEMISTRY ORDERABLES Final R esult [facility] documented in this encounter Visit Diagnoses Not on filedocumented in this encounter Additional Health Concerns Infection Onset Date Last Indicated Resolved Time C Diff 11/17/2022 11/17/2022 01/16/2023 1:16 AM CDT documented as of this encounter Care Teams Relay Mechanic Relationship Specialty Start Date End Date Shant Ballesteros Jr., MD [address] [place] [address] PCP - General Family Practice 01/19/14 documented as of this encounter
--- OUTSIDE RECORDS SUMMARY | 2025-05-22 12:09 | XMS_ITS | Encounter Summary ---
Author Organization [employer] [facility] Address [address] [place] [address] Care Team Providers Care Geophysical E Logger Name Role Phone Favian Maldonado MD, Shant Humphreys Primary Care Provider Encounter Details Date Type Department Care Team (Late st Contact Info) Description 11/22/2022 Lab Requisition [facility] Laboratory Services [address] [place] [address] [place] [address] Low Amaya, DO [address] [place] [address] Social History Tobacco Use Types Packs/Day Years Used Date Smoking Tobacco: Never Assessed Sex and Gender Information Value Date Recorded Sex Assigned at Not on file Legal 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 AIRCRAFT REFUELER Gender Identity Not on file Sexual Orientation Not on file documented as of this encounter Plan of Treatment Not on file documented as of this encounter Procedures Procedure Name Priority Date/Time Associated Diagnosis Comments CBC WITH DIFFERENTIAL Routine 11/22/2022 4:14 AM AIRCRAFT REFUELER documented in this encounter Results * (ABNORMAL) CBC WITH DIFFERENTIAL (11/22/2022 4:14 AM AIRCRAFT REFUELER) WBC 6.6 4.8 - 10.8 K/uL 11/22/2022 7:49 AM AIRCRAFT REFUELER [facility] RBC 2.65(L) 4.60 - 6.20 M/uL 11/22/2022 7:49 AM AIRCRAFT REFUELER [facility] HEMOGLOBIN 7.9(L) 14.0 - 18.0 g/dL 11/22/2022 7:49 AM [facility] HEMATOCRIT 26.8(L) 41.0 - 53.0 % 11/22/2022 7:49 AM [facility] MCV 101.1 84.0 - 103.0 fL 11/22/2022 7:49 AM [facility] MCH 29.8 27.0 - 34.0 pg 11/22/2022 7:49 AM [facility] MCHC 29.5(L) 30.0 - 35.0 g/dL 11/22/2022 7:49 AM [facility] RDW 18.6(H) 11.0 - 14.5 % 11/22/2022 7:49 AM [facility] RDW-STDEV 66.0(H) 37.0 - 54.0 fL 11/22/2022 7:49 AM [facility] PLATELETS 298 140 - 440 K/uL 11/22/2022 7:49 AM [facility] MPV 9.8 8.9 - 12.8 fL 11/22/2022 7:49 AM [facility] NEUTROPHILS 67 42 - 75 % 11/22/2022 7:49 AM [facility] LYMPHOCYTES 14(L) 24 - 44 % 11/22/2022 7:49 AM [facility] MONOCYTES 11(H) 2 - 10 % 11/22/2022 7:49 AM [facility] [employer] [facility] EOSINOPHILS 6 0 - 7 % 11/22/2022 7:49 AM [facility] [employer] [facility] BASOPHILS 1 0 - 1 % 11/22/2022 7:49 AM [facility] IMMATURE GRANULOCYTES 1 0 - 2 % 11/22/2022 7:49 AM [facility] NEUTROPHIL ABSOLUTE 4.40 2.00 - 8.00 K/uL 11/22/2022 7:49 AM [facility] LYMPHOCYTE ABSOLUTE 0.92(L) 1.20 - 4.00 K/uL 11/22/2022 7:49 AM [facility] MONOCYTE ABSOLUTE 0.74(H) 0.10 - 0.60 K/uL 11/22/2022 7:49 AM AIRCRAFT REFUELER [facility] EOSINOPHIL ABSOLUTE 0.40 0.00 - 0.70 K/uL 11/22/2022 7:49 AM AIRCRAFT REFUELER [facility] BASOPHILS ABSOLUTE 0.03 0.00 - 0.20 K/uL 11/22/2022 7:49 AM AIRCRAFT REFUELER [facility] IMMATURE GRANULOCYTES ABSOLUTE 0.07 0.00 - 0.10 K/uL 11/22/2022 7:49 AM AIRCRAFT REFUELER [facility] Blood Collection / Unknown 11/22/2022 4:14 AM AIRCRAFT REFUELER 11/22/2022 7:43 AM AIRCRAFT REFUELER Low Amaya DO HEMATOLOGY ORDERABLES Final Result Performing Organization Address City/State/[facility] Co de Phone Number [facility] CLIA # [id number] [facility] [address] documented in this encounter Visit Diagnoses Not on filedocumented in this encounter Additional Health Concerns Infection Onset Date Last Indicated Resolved Time C Diff 11/17/2022 11/17/2022 01/16/2023 1:1 6 AM CDT documented as of this encounter Care Teams Geophysical E Logger Relationship Specialty Start Date End Date Shant Ballesteros Jr., MD [address] [place] [address] PCP - General Family Practice 01/19/14 documented as of this encounter
--- OUTSIDE RECORDS SUMMARY | 2025-05-22 12:09 | XMS_ITS | Encounter Summary ---
Author Organization [employer] Address [address] [place] [address] Care Team Providers Care Transit Department Clerk Name Role Phone Favian Maldonado MD, Shant Humphreys Primary Care Provider Encounter Details Date Type Department Care Team (Late st Contact Info) Description 11/30/2022 Lab Requisition [facility] Laboratory Services [address] [place] [address] Low Amaya, DO [address] [place] [phone] Social History Tobacco Use Types Packs/Day Years Used Date Smoking Tobacco: Never Assessed Sex and Gender Information Value Date Recorded Sex Assigned at Not on file Legal 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 TELLER COORDINATOR Gender Identity Not on file Sexual Orientation Not on file documented as of this encounter Plan of Treatment Not on file documented as of this encounter Procedures Procedure Name Priority Date/Time Associated Diagnosis Comments PHOSPHORUS Routine 11/30/2022 4:55 AM TELLER COORDINATOR MAGNESIUM LEVEL Routine 11/30/2022 4:55 AM TELLER COORDINATOR BASIC METABOLIC PANEL Routine 11/30/2022 4:55 AM TELLER COORDINATOR documented in this encounter Results * MAGNESIUM LEVEL (11/30/2022 4:55 AM TELLER COORDINATOR) MAGNESIUM 2.0 1.6 - 2.4 mg/dL 11/30/2022 8:00 AM TELLER COORDINATOR [facility] Blood Collection / Unknown 11/30/2022 4:55 AM TELLER COORDINATOR 11/30/2022 6:21 AM TELLER COORDINATOR Low Amaya DO CHEMISTRY ORDERABLES Final R esult Performing Organization Address [facility]/ZIP Co de Phone Number [facility] CLIA # [id number] [address] [address] * PHOSPHORUS (11/30/2022 4:55 AM TELLER COORDINATOR) PHOSPHORUS 3.6 2.5 - 4.5 mg/dL 11/30/2022 6:35 AM [facility] Blood Collection / Unknown 11/30/2022 4:55 AM TELLER COORDINATOR 11/30/2022 6:21 AM TELLER COORDINATOR Low Amaya DO CHEMISTRY ORDERABLES Final R esult Performing Organization Address [facility]/ZIP Co de Phone Number [facility] CLIA # [id number] [address] [address] * (ABNORMAL) BASIC METABOLIC PANEL (11/30/2022 4:55 AM TELLER COORDINATOR) SODIUM 140 136 - 145 mmol/L 11/30/2022 6:35 AM [facility] POTASSIUM 4.1 3.5 - 5.1 mmol/L 11/30/2022 6:35 AM [facility] CHLORIDE 101 98 - 107 mmol/L 11/30/2022 6:35 AM [facility] CO2 34(H) 22 - 29 mmol/L 11/30/2022 6:35 AM [facility] CALCIUM 9.8 8.8 - 10.2 mg/dL 11/30/2022 6:35 AM [facility] BUN 31(H) 8 - 23 mg/dL 11/30/2022 6:35 AM [facility] CREATININE 0.99 0.67 - 1.17 mg/dL 11/30/2022 6:35 AM [facility] GLUCOSE 129(H) 74 - 99 mg/dL 11/30/2022 6:35 AM [facility] GFR >60 >=60 mL/min/1.7 3 sq meter 11/30/2022 6:35 AM [facility] Comment:eGFR calculated with 2020 CKD-EPI equation. Vegetarian diet, extremely high or low muscle mass, and may affect results. Cystatin C with Glomerular Filtration Rate is a suitable alternative for these patients. ANION GAP 5(L) 9 - 20 mmol/L 11/30/2022 6:35 AM [facility] Blood Collection / Unknown 11/30/2022 4:55 AM TELLER COORDINATOR 11/30/2022 6:21 AM TELLER COORDINATOR Low Amaya DO CHEMISTRY ORDERABLES Final R esult [facility] CLIA # [id number] [address] [place] [address] documented in this encounter Visit Diagnoses Not on filedocumented in this encounter Additional Health Concerns Infection Onset Date Last Indicated Resolved Time C Diff 11/17/2022 11/17/2022 01/16/2023 1:16 AM CDT documented as of this encounter Care Teams Transit Department Clerk Relationship Specialty Start Date End Date Shant Ballesteros Jr., MD [address] [place] [address] PCP - General Family Practice 01/19/14 documented as of this encounter
--- OUTSIDE RECORDS SUMMARY | 2025-05-22 12:09 | XMS_ITS | Clinical Summary ---
Author Organization [facility] Address [address] [place] [address] Phone Care Team Providers Care Sales Engagement Executive Name Role Phone Favian Maldonado MD, Shant [...] (1 - 1-dose 75+ series) 2030 Insurance [employer] [id number] HMO Care Teams Sales Engagement Executive Relationship Specialty Start Date End Date Shant Ballesteros Jr., MD [address] [place] [address] PCP - General Family Practice 01/19/14
--- OUTSIDE RECORDS SUMMARY | 2025-05-22 12:09 | XMS_ITS | Encounter Summary ---
Author Organization [facility] Address [address] [place] [address] Care Team Providers Care Vice President Media Relations Name Role Phone Favian Maldonado MD, Shant Humphreys Primary Care Provider Encounter Details Date Type Department Care Team (Late st Contact Info) Description 12/06/2022 Lab Requisition [facility] Laboratory Services [address] [place] [address] Esther Sarmiento MD [address] [place] [address] Social History Tobacco Use Types Packs/Day Years Used Date Smoking Tobacco: Never Assessed Sex and Gender Information Value Date Recorded Sex Assigned at Not on file Legal 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 RESEARCH DIETITIAN Gender Identity Not on file Sexual Orientation Not on file documented as of this encounter Plan of Treatment Not on file documented as of this encounter Procedures Procedure Name Priority Date/Time Associated Diagnosis Comments EXTRA TUBE (GREEN) Routine 12/06/2022 3:00 AM RESEARCH DIETITIAN documented in this encounter Results * EXTRA TUBE (GREEN) (12/06/2022 3:00 AM RESEARCH DIETITIAN) Blood Collection / Unknown 12/06/2022 3:00 AM RESEARCH DIETITIAN 12/06/2022 7:33 AM RESEARCH DIETITIAN us Esther Sarmiento MD CHEMISTRY ORDERABLES Final Resul t [facility] CLIA # [id number] [address] [facility] [place] [address] documented in this encounter Visit Diagnoses Not on filedocumented in this encounter Additional Health Concerns Infection Onset Date Last Indicated Resolved Time C Diff 11/17/2022 11/17/2022 01/16/2023 1:16 AM CDT documented as of this encounter Care Teams Vice President Media Relations Relationship Specialty Start Date End Date Shant Ballesteros Jr., MD [address] [place] [address] PCP - General Family Practice 01/19/14 documented as of this encounter
--- OUTSIDE RECORDS SUMMARY | 2025-05-22 12:09 | XMS_ITS | Encounter Summary ---
Author Organization [employer] [facility] Address [address] [place] [address] Care Team Providers Care Head Refrigeration Engineer Name Role Phone Favian Maldonado MD, Shant Humphreys Primary Care Provider Encounter Details Date Type Department Care Team (Late st Contact Info) Description 12/03/2022 Lab Requisition [facility] Laboratory Services [address] [place] [address] Andre Mary, MADHU [address] [facility] [address] [place] [address] Social History Tobacco Use Types Packs/Day Years Used Date Smoking Tobacco: Never Assessed Sex and Gender Information Value Date Recorded Sex Assigned at Not on file Legal 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 NUTRITIONALIST Gender Identity Not on file Sexual Orientation Not on file documented as of this encounter Plan of Treatment Not on file documented as of this encounter Procedures Procedure Name Priority Date/Time Associated Diagnosis Comments CBC WITH DIFFERENTIAL Routine 12/03/2022 2:00 AM NUTRITIONALIST TRIGLYCERIDE Routine 12/03/2022 2:00 AM NUTRITIONALIST PHOSPHORUS Routine 12/03/2022 2:00 AM NUTRITIONALIST MAGNESIUM LEVEL Routine 12/03/2022 2:00 AM NUTRITIONALIST COMPREHENSIVE METABOLIC PANEL Routine 12/03/2022 2:00 AM NUTRITIONALIST documented in this encounter Results * MAGNESIUM LEVEL (12/03/2022 2:00 AM NUTRITIONALIST) MAGNESIUM 1.9 1.6 - 2.4 mg/dL 12/03/2022 7:06 AM [facility] Blood Collection / Unknown 12/03/2022 2:00 AM NUTRITIONALIST 12/03/2022 6:33 AM NUTRITIONALIST Andre Mary LIQUOR ESTABLISHMENT MANAGER CHEMISTRY ORDERABLES Fin al Result Performing Organization Address [facility] de Phone Number [facility] CLIA # [id number] [address] [place], [place] [address] * (ABNORMAL) TRIGLYCERIDE (12/03/2022 2:00 AM NUTRITIONALIST) Pathologist [facility] TRIGLYCERIDE 163(H) <150 mg/dL 12/03/2022 7:06 AM [facility] Blood Collection / Unknown 12/03/2022 2:00 AM NUTRITIONALIST 12/03/2022 6:33 AM NUTRITIONALIST Narrative [facility] - 12/03/2022 7:06 AM NUTRITIONALIST TRIGLYCERIDES mg/dL Normal < 150 Borderline High 150 - 199 High 200 - 499 Very High >= 500 Based on AHA/NCEP Guidelines. Andre Mary LIQUOR ESTABLISHMENT MANAGER CHEMISTRY ORDERABLES Fin al Result Performing Organization Address [facility] de Phone Number [facility] CLIA # [id number] [address] [facility] [place], [place] [address] * PHOSPHORUS (12/03/2022 2:00 AM NUTRITIONALIST) Pathologist [facility] PHOSPHORUS 3.3 2.5 - 4.5 mg/dL 12/03/2022 7:06 AM [facility] Blood Collection / Unknown 12/03/2022 2:00 AM NUTRITIONALIST 12/03/2022 6:33 AM NUTRITIONALIST us Andre Mary NP CHEMISTRY ORDERABLES Fin al Result [facility] CLIA # [id number] [address] [facility] [place] [address] * (ABNORMAL) CBC WITH DIFFERENTIAL (12/03/2022 2:00 AM NUTRITIONALIST) [facility] WBC 6.5 4.8 - 10.8 K/uL 12/03/2022 6:40 AM [facility] RBC 3.05(L) 4.60 - 6.20 M/uL 12/03/2022 6:40 AM [facility] HEMOGLOBIN 9.1(L) 14.0 - 18.0 g/dL 12/03/2022 6:40 AM [facility] HEMATOCRIT 30.4(L) 41.0 - 53.0 % 12/03/2022 6:40 AM [facility] MCV 99.7 84.0 - 103.0 fL 12/03/2022 6:40 AM [facility] MCH 29.8 27.0 - 34.0 pg 12/03/2022 6:40 AM [facility] MCHC 29.9(L) 30.0 - 35.0 g/dL 12/03/2022 6:40 AM [facility] RDW 17.5(H) 11.0 - 14.5 % 12/03/2022 6:40 AM [facility] RDW-STDEV 63.8(H) 37.0 - 54.0 fL 12/03/2022 6:40 AM [facility] PLATELETS 247 140 - 440 K/uL 12/03/2022 6:40 AM [facility] MPV 10.6 8.9 - 12.8 fL 12/03/2022 6:40 AM [facility] NEUTROPHILS 57 42 - 75 % 12/03/2022 6:40 AM [facility] LYMPHOCYTES 19(L) 24 - 44 % 12/03/2022 6:40 AM [facility] MONOCYTES 12(H) 2 - 10 % 12/03/2022 6:40 AM [facility] EOSINOPHILS 11(H) 0 - 7 % 12/03/2022 6:40 AM [facility] BASOPHILS 1 0 - 1 % 12/03/2022 6:40 AM [facility] IMMATURE GRANULOCYTES 1 0 - 2 % 12/03/2022 6:40 AM [facility] NEUTROPHIL ABSOLUTE 3.68 2.00 - 8.00 K/uL 12/03/2022 6:40 AM [facility] LYMPHOCYTE ABSOLUTE 1.22 1.20 - 4.00 K/uL 12/03/2022 6:40 AM [facility] MONOCYTE ABSOLUTE 0.80(H) 0.10 - 0.60 K/uL 12/03/2022 6:40 AM [facility] EOSINOPHIL ABSOLUTE 0.69 0.00 - 0.70 K/uL 12/03/2022 6:40 AM [facility] BASOPHILS ABSOLUTE 0.06 0.00 - 0.20 K/uL 12/03/2022 6:40 AM [facility] IMMATURE GRANULOCYTES ABSOLUTE 0.03 0.00 - 0.10 K/uL 12/03/2022 6:40 AM [facility] Blood Collection / Unknown 12/03/2022 2:00 AM NUTRITIONALIST 12/03/2022 6:32 AM [facility] us Andre Mary LIQUOR ESTABLISHMENT MANAGER HEMATOLOGY ORDERABLES Fi nal Result [facility] CLIA # [id number] [address] [facility] [place], [place] [id number] * (ABNORMAL) COMPREHENSIVE METABOLIC PANEL (12/03/2022 2:00 AM NUTRITIONALIST) [facility] SODIUM 140 136 - 145 mmol/L 12/03/2022 7:06 AM [facility] POTASSIUM 3.5 3.5 - 5.1 mmol/L 12/03/2022 7:06 AM [facility] CHLORIDE 101 98 - 107 mmol/L 12/03/2022 7:06 AM [facility] CO2 31(H) 22 - 29 mmol/L 12/03/2022 7:06 AM [facility] CALCIUM 9.8 8.8 - 10.2 mg/dL 12/03/2022 7:06 AM [facility] BUN 28(H) 8 - 23 mg/dL 12/03/2022 7:06 AM [facility] CREATININE 0.88 0.67 - 1.17 mg/dL 12/03/2022 7:06 AM [facility] GLUCOSE 130(H) 74 - 99 mg/dL 12/03/2022 7:06 AM [facility] TOTAL PROTEIN 6.8 6.4 - 8.3 g/dL 12/03/2022 7:06 AM [facility] ALBUMIN 3.1(L) 3.5 - 5.2 g/dL 12/03/2022 7:06 AM [facility] BILIRUBIN TOTAL 0.3 0.2 - 1.0 mg/dL 12/03/2022 7:06 AM [facility] ALKALINE PHOSPHATASE 104 40 - 129 U/L 12/03/2022 7:06 AM [facility] AST 19 10 - 50 U/L 12/03/2022 7:06 AM [facility] ALT 14 <=50 U/L 12/03/2022 7:06 AM [facility] GFR >60 >=60 mL/min/1.7 3 sq meter 12/03/2022 7:06 AM [facility] Comment:eGFR calculated with 2020 CKD-EPI equation. Vegetarian diet, extremely high or low muscle mass, and may affect results. Cystatin C with Glomerular Filtration Rate is a suitable alternative for these patients. ANION GAP 8(L) 9 - 20 mmol/L 12/03/2022 7:06 AM NUTRITIONALIST [facility] Blood Collection / Unknown 12/03/2022 2:00 AM NUTRITIONALIST 12/03/2022 6:33 AM NUTRITIONALIST us Andre Mary LIQUOR ESTABLISHMENT MANAGER CHEMISTRY ORDERABLES Fin al Result [facility] CLIA # [id number] [facility] [address] [place] [address] documented in this encounter Visit Diagnoses Not on filedocumented in this encounter Additional Health Concerns Infection Onset Date Last Indicated Resolved Time C Diff 11/17/2022 11/17/2022 01/16/2023 1:16 AM CDT documented as of this encounter Care Teams Head Refrigeration Engineer Relationship Specialty Start Date End Date Shant Ballesteros Jr., MD [address] [place] [address] PCP - General Family Practice 01/19/14 documented as of this encounter
--- OUTSIDE RECORDS SUMMARY | 2025-05-22 12:09 | XMS_ITS | Encounter Summary ---
Author Organization [employer] Address [address] [place] [address] Care Team Providers Care School Bus Monitor Name Role Phone Favian Maldonado MD, Shant Humphreys Primary Care Provider Encounter Details Date Type Department Care Team (Late st Contact Info) Description 12/13/2022 Lab Requisition [facility] Laboratory Services [address] [place] [address] Esther Sarmiento MD [address] [place] [address] Social History Tobacco Use Types Packs/Day Years Used Date Smoking Tobacco: Never Assessed Sex and Gender Information Value Date Recorded Sex Assigned at Not on file Legal 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 GOLD BUYER Gender Identity Not on file Sexual Orientation [...] CBC WITH DIFFERENTIAL (12/13/2022 4:30 AM CDT) [facility] WBC 6.0 4.8 - 10.8 K/uL 12/13/2022 5:36 AM CDT [facility] SERVICES [facility] RBC 3.36(L) 4.60 - 6.20 M/uL 12/13/2022 5:36 AM [facility] HEMOGLOBIN 10.3(L) 14.0 - 18.0 g/dL 12/13/2022 5:36 AM [facility] HEMATOCRIT 33.7(L) 41.0 - 53.0 % 12/13/2022 5:36 AM [facility] MCV 100.3 84.0 - 103.0 fL 12/13/2022 5:36 AM [facility] MCH 30.7 27.0 - 34.0 pg 12/13/2022 5:36 AM [facility] MCHC 30.6 30.0 - 35.0 g/dL 12/13/2022 5:36 AM [facility] RDW 15.9(H) 11.0 - 14.5 % 12/13/2022 5:36 AM [facility] RDW-STDEV 58.9(H) 37.0 - 54.0 fL 12/13/2022 5:36 AM [facility] PLATELETS 262 140 - 440 K/uL 12/13/2022 5:36 AM [facility] MPV 10.9 8.9 - 12.8 fL 12/13/2022 5:36 AM [facility] NEUTROPHILS 54 42 - 75 % 12/13/2022 5:36 AM [facility] LYMPHOCYTES 23(L) 24 - 44 % 12/13/2022 5:36 AM [facility] MONOCYTES 14(H) 2 - 10 % 12/13/2022 5:36 AM [facility] EOSINOPHILS 8(H) 0 - 7 % 12/13/2022 5:36 AM [facility] BASOPHILS 1 0 - 1 % 12/13/2022 5:36 AM [facility] IMMATURE GRANULOCYTES 1 0 - 2 % 12/13/2022 5:36 AM [facility] NEUTROPHIL ABSOLUTE 3.23 2.00 - 8.00 K/uL 12/13/2022 5:36 AM [facility] LYMPHOCYTE ABSOLUTE 1.39 1.20 - 4.00 K/uL 12/13/2022 5:36 AM CDT [facility] MONOCYTE ABSOLUTE 0.81(H) 0.10 - 0.60 K/uL 12/13/2022 5:36 AM CDT [facility] EOSINOPHIL ABSOLUTE 0.50 0.00 - 0.70 K/uL 12/13/2022 5:36 AM CDT [facility] BASOPHILS ABSOLUTE 0.04 0.00 - 0.20 K/uL 12/13/2022 5:36 AM CDT [facility] IMMATURE GRANULOCYTES ABSOLUTE 0.03 0.00 - 0.10 K/uL 12/13/2022 5:36 AM CDT [facility] Blood Collection / Unknown 12/13/2022 4:30 AM CDT 12/13/2022 5:28 AM CDT us Esther Sarmiento MD HEMATOLOGY ORDERABLES Final Resu lt [facility] CLIA # [id number] [address] [place] [address] * (ABNORMAL) TESTOSTERONE FREE AND TOTAL (12/13/2022 4:30 AM CDT) [facility] TESTOSTERONE 28(L) 250 - 1100 ng/dL 12/16/2022 11:31 AM CDT [facility] Comment: Men with clinically significant hypogonadal symptoms and testosterone values repeatedly in the range of the 200-300 ng/dL or less, may benefit from testosterone treatment after adequate risk and benefits counseling. For additional information, please refer to https://education.LogFire/faq/TYB535 (This link is being provided for informational/educational purposes only.) (Note) This test was developed and its analytical performance characteristics have been determined by [employer]. It has not been cleared or approved by the FDA. This assay has been validated pursuant to the CLIA regulations and is used for clinical purposes. TESTOSTERONE FREE 4.3(L) 35.0 - 155.0 pg/mL 12/16/2022 11:31 AM CDT [facility] Comment: (Note) This test was developed and its analytical performance characteristics have been determined by [employer]. It has not been cleared or approved by the FDA. This assay has been validated pursuant to the CLIA regulations and is used for clinical purposes. [facility] [address] [place] [address],[address] [place] [id number] Manuel Tirado MD Blood Collection / Unknown 12/13/2022 4:30 AM CDT 12/13/2022 7:43 AM CDT Narrative [facility] - 12/16/2022 11:31 AM CDT Performing Organization Information: Site ID: [id number] Name: [facility] Address: [address] [place] [address], [address] [place] [id number] Director: Manuel Tirado MD Esther Sarmiento MD CHEMISTRY ORDERABLES Final Resul t [facility] documented in this encounter Visit Diagnoses Not on filedocumented in this encounter Additional Health Concerns Infection Onset Date Last Indicated Resolved Time C Diff 11/17/2022 11/17/2022 01/16/2023 1:16 AM CDT documented as of this encounter Care Teams School Bus Monitor Relationship Specialty Start Date End Date Shant Ballesteros Jr., MD [address] [place] [address] PCP - General Family Practice 01/19/14 documented as of this encounter
--- OUTSIDE RECORDS SUMMARY | 2025-05-22 12:09 | XMS_ITS | Encounter Summary ---
Author Organization [employer] Address [address] [place] [address] Care Team Providers Care 7Th Grade Social Studies Teacher Name Role Phone Favian Maldonado MD, Shant Humphreys Primary Care Provider Encounter Details Date Type Department Care Team (Late st Contact Info) Description 11/20/2022 Lab Requisition [facility] Laboratory Services [address] [place] [address] Andre Mary, MADHU [address] [facility] [address] [place] [address] Social History Tobacco Use Types Packs/Day Years Used Date Smoking Tobacco: Never Assessed Sex and Gender Information Value Date Recorded Sex Assigned at Not on file Legal 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 DISHWASHING MACHINE REPAIRER Gender Identity Not on file Sexual Orientation Not on file documented as of this encounter Plan of Treatment Not on file documented as of this encounter Procedures Procedure Name Priority Date/Time Associated Diagnosis Comments CBC WITH DIFFERENTIAL Routine 11/20/2022 3:55 PM DISHWASHING MACHINE REPAIRER documented in this encounter Results * (ABNORMAL) CBC WITH DIFFERENTIAL (11/20/2022 3:55 PM DISHWASHING MACHINE REPAIRER) WBC 7.3 4.8 - 10.8 K/uL 11/20/2022 4:35 PM DISHWASHING MACHINE REPAIRER [facility] RBC 2.66(L) 4.60 - 6.20 M/uL 11/20/2022 4:35 PM DISHWASHING MACHINE REPAIRER [facility] LABOR[facility]ORY [facility] HEMOGLOBIN 8.0(L) 14.0 - 18.0 g/dL 11/20/2022 4:35 PM [facility] HEMATOCRIT 27.1(L) 41.0 - 53.0 % 11/20/2022 4:35 PM [facility] MCV 101.9 84.0 - 103.0 fL 11/20/2022 4:35 PM [facility] MCH 30.1 27.0 - 34.0 pg 11/20/2022 4:35 PM [facility] MCHC 29.5(L) 30.0 - 35.0 g/dL 11/20/2022 4:35 PM [facility] RDW 17.7(H) 11.0 - 14.5 % 11/20/2022 4:35 PM [facility] RDW-STDEV 62.4(H) 37.0 - 54.0 fL 11/20/2022 4:35 PM [facility] PLATELETS 302 140 - 440 K/uL 11/20/2022 4:35 PM [facility] MPV 9.6 8.9 - 12.8 fL 11/20/2022 4:35 PM [facility] NEUTROPHILS 68 42 - 75 % 11/20/2022 4:35 PM [facility] LYMPHOCYTES 15(L) 24 - 44 % 11/20/2022 4:35 PM [facility] MONOCYTES 12(H) 2 - 10 % 11/20/2022 4:35 PM [facility] EOSINOPHILS 3 0 - 7 % 11/20/2022 4:35 PM [facility] BASOPHILS 0 0 - 1 % 11/20/2022 4:35 PM [facility] IMMATURE GRANULOCYTES 1 0 - 2 % 11/20/2022 4:35 PM [facility] NEUTROPHIL ABSOLUTE 5.00 2.00 - 8.00 K/uL 11/20/2022 4:35 PM [facility] LYMPHOCYTE ABSOLUTE 1.06(L) 1.20 - 4.00 K/uL 11/20/2022 4:35 PM DISHWASHING MACHINE REPAIRER [facility] MONOCYTE ABSOLUTE 0.91(H) 0.10 - 0.60 K/uL 11/20/2022 4:35 PM DISHWASHING MACHINE REPAIRER [facility] EOSINOPHIL ABSOLUTE 0.22 0.00 - 0.70 K/uL 11/20/2022 4:35 PM [facility] BASOPHILS ABSOLUTE 0.02 0.00 - 0.20 K/uL 11/20/2022 4:35 PM [facility] IMMATURE GRANULOCYTES ABSOLUTE 0.10 0.00 - 0.10 K/uL 11/20/2022 4:35 PM [facility] Blood Collection / Unknown 11/20/2022 3:55 PM DISHWASHING MACHINE REPAIRER 11/20/2022 4:30 PM DISHWASHING MACHINE REPAIRER us Andre Mary SOCIAL AND HUMAN SERVICES ASSISTANT HEMATOLOGY ORDERABLES Fi nal Result [facility] CLIA # [id number] [facility] [address] documented in this encounter Visit Diagnoses Not on filedocumented in this encounter Additional Health Concerns Infection Onset Date Last Indicated Resolved Time C Diff 11/17/2022 11/17/2022 01/16/2023 1:16 AM CDT documented as of this encounter Care Teams 7Th Grade Social Studies Teacher Relationship Specialty Start Date End Date Shant Ballesteros Jr., MD [address] [place] [address] PCP - General Family Practice 01/19/14 documented as of this encounter
--- OUTSIDE RECORDS SUMMARY | 2025-05-22 12:09 | XMS_ITS | Encounter Summary ---
Author Organization [facility] Address [address] [place] [address] Care Team Providers Care Sign Language Instructor Name Role Phone Favian Maldonado MD, Shant Humphreys Primary Care Provider Encounter Details Date Type Department Care Team (Late st Contact Info) Description 11/29/2022 Lab Requisition [facility] Laboratory Services [address] [place] [address] Andre Mary, MADHU [address] [facility] [address] [place] [address] Social History Tobacco Use Types Packs/Day Years Used Date Smoking Tobacco: Never Assessed Sex and Gender Information Value Date Recorded Sex Assigned at Not on file Legal 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 BEHAVIORAL HEALTH CLINICIAN Gender Identity Not on file Sexual Orientation Not on file documented as of this encounter Plan of Treatment Not on file documented as of this encounter Procedures Procedure Name Priority Date/Time Associated Diagnosis Comments CBC WITH DIFFERENTIAL Routine 11/29/2022 4:15 AM BEHAVIORAL HEALTH CLINICIAN documented in this encounter Results * (ABNORMAL) CBC WITH DIFFERENTIAL (11/29/2022 4:15 AM BEHAVIORAL HEALTH CLINICIAN) WBC 6.6 4.8 - 10.8 K/uL 11/29/2022 7:02 AM BEHAVIORAL HEALTH CLINICIAN [facility] RBC 2.98(L) 4.60 - 6.20 M/uL 11/29/2022 7:02 AM BEHAVIORAL HEALTH CLINICIAN [facility] HEMOGLOBIN 9.0(L) 14.0 - 18.0 g/dL 11/29/2022 7:02 AM [facility] HEMATOCRIT 29.9(L) 41.0 - 53.0 % 11/29/2022 7:02 AM [facility] MCV 100.3 84.0 - 103.0 fL 11/29/2022 7:02 AM [facility] MCH 30.2 27.0 - 34.0 pg 11/29/2022 7:02 AM [facility] MCHC 30.1 30.0 - 35.0 g/dL 11/29/2022 7:02 AM [facility] RDW 18.0(H) 11.0 - 14.5 % 11/29/2022 7:02 AM [facility] RDW-STDEV 65.1(H) 37.0 - 54.0 fL 11/29/2022 7:02 AM [facility] PLATELETS 226 140 - 440 K/uL 11/29/2022 7:02 AM [facility] MPV 10.5 8.9 - 12.8 fL 11/29/2022 7:02 AM [facility] NEUTROPHILS 67 42 - 75 % 11/29/2022 7:02 AM [facility] LYMPHOCYTES 13(L) 24 - 44 % 11/29/2022 7:02 AM [facility] MONOCYTES 13(H) 2 - 10 % 11/29/2022 7:02 AM [facility] EOSINOPHILS 6 0 - 7 % 11/29/2022 7:02 AM [facility] BASOPHILS 1 0 - 1 % 11/29/2022 7:02 AM [facility] IMMATURE GRANULOCYTES 1 0 - 2 % 11/29/2022 7:02 AM [facility] NEUTROPHIL ABSOLUTE 4.47 2.00 - 8.00 K/uL 11/29/2022 7:02 AM [facility] LYMPHOCYTE ABSOLUTE 0.88(L) 1.20 - 4.00 K/uL 11/29/2022 7:02 AM [facility] MONOCYTE ABSOLUTE 0.85(H) 0.10 - 0.60 K/uL 11/29/2022 7:02 AM BEHAVIORAL HEALTH CLINICIAN [facility] EOSINOPHIL ABSOLUTE 0.37 0.00 - 0.70 K/uL 11/29/2022 7:02 AM [facility] BASOPHILS ABSOLUTE 0.04 0.00 - 0.20 K/uL 11/29/2022 7:02 AM [facility] IMMATURE GRANULOCYTES ABSOLUTE 0.03 0.00 - 0.10 K/uL 11/29/2022 7:02 AM [facility] Blood Collection / Unknown 11/29/2022 4:15 AM BEHAVIORAL HEALTH CLINICIAN 11/29/2022 6:48 AM BEHAVIORAL HEALTH CLINICIAN us Andre Mary WHITE METAL CASTER HEMATOLOGY ORDERABLES Fi nal Result [facility] CLIA # [id number] [address] [place] [address] documented in this encounter Visit Diagnoses Not on filedocumented in this encounter Additional Health Concerns Infection Onset Date Last Indicated Resolved Time C Diff 11/17/2022 11/17/2022 01/16/2023 1:16 AM CDT documented as of this encounter Care Teams Sign Language Instructor Relationship Specialty Start Date End Date Shant Ballesteros Jr., MD [address] [place] [address] PCP - General Family Practice 01/19/14 documented as of this encounter
--- OUTSIDE RECORDS SUMMARY | 2025-05-22 12:09 | XMS_ITS | Encounter Summary ---
Author Organization [employer] [facility] Address [address] [place] [address] Care Team Providers Care Chair Springer Name Role Phone Favian Maldonado MD, Shant Humphreys Primary Care Provider Encounter Details Date Type Department Care Team (Late st Contact Info) Description 11/17/2022 Lab Requisition [facility] Laboratory Services [address] [place] [address] Andre Mary, MADHU [address] [facility] [address] [place] [address] Social History Tobacco Use Types Packs/Day Years Used Date Smoking Tobacco: Never Assessed Sex and Gender Information Value Date Recorded Sex Assigned at Not on file Legal Sex Male 9:45 AM STUDENT OUTREACH COORDINATOR Gender Identity Not on file Sexual Orientation Not on file documented as of this encounter Plan of Treatment Not on file documented as of this encounter Procedures Procedure Name Priority Date/Time Associated Diagnosis Comments CBC WITH DIFFERENTIAL Stat 11/17/2022 4:30 AM STUDENT OUTREACH COORDINATOR TRIGLYCERIDE Stat 11/17/2022 4:30 AM STUDENT OUTREACH COORDINATOR PHOSPHORUS Stat 11/17/2022 4:30 AM STUDENT OUTREACH COORDINATOR MAGNESIUM LEVEL Stat 11/17/2022 4:30 AM STUDENT OUTREACH COORDINATOR COMPREHENSIVE METABOLIC PANEL Routine 11/17/2022 4:30 AM STUDENT OUTREACH COORDINATOR documented in this encounter Results * TRIGLYCERIDE (11/17/2022 4:30 AM STUDENT OUTREACH COORDINATOR) TRIGLYCERIDE 103 <150 mg/dL 11/17/2022 5:51 AM STUDENT OUTREACH COORDINATOR [facility] Blood Collection / Unknown 11/17/2022 4:30 AM STUDENT OUTREACH COORDINATOR 11/17/2022 5:31 AM STUDENT OUTREACH COORDINATOR Narrative [facility] - 11/17/2022 5:51 AM STUDENT OUTREACH COORDINATOR TRIGLYCERIDES mg/dL Normal < 150 Borderline High 150 - 199 High 200 - 499 Very High >= 500 Based on AHA/NCEP Guidelines. Andre Mayr FLUMER CHEMISTRY ORDERABLES Fin al Result Performing Organization Address City/[facility]/ZIP Co de Phone Number [facility] CLIA # [id number] [address] [place], [place] [id number] * PHOSPHORUS (11/17/2022 4:30 AM STUDENT OUTREACH COORDINATOR) Pathologist [facility] PHOSPHORUS 3.2 2.5 - 4.5 mg/dL 11/17/2022 5:51 AM STUDENT OUTREACH COORDINATOR [facility] Blood Collection / Unknown 11/17/2022 4:30 AM STUDENT OUTREACH COORDINATOR 11/17/2022 5:31 AM STUDENT OUTREACH COORDINATOR Andre Mary FLUMER CHEMISTRY ORDERABLES Fin al Result [facility] CLIA # [id number] [address] [facility] [place], [place] [address] * MAGNESIUM LEVEL (11/17/2022 4:30 AM STUDENT OUTREACH COORDINATOR) MAGNESIUM 2.1 1.6 - 2.4 mg/dL 11/17/2022 5:51 AM STUDENT OUTREACH COORDINATOR [facility] Blood Collection / Unknown 11/17/2022 4:30 AM STUDENT OUTREACH COORDINATOR 11/17/2022 5:31 AM STUDENT OUTREACH COORDINATOR us Andre Mary NP CHEMISTRY ORDERABLES Fin al Result [facility] CLBRYANT # [id number] [address] [facility] [address] [place] [address] * (ABNORMAL) CBC WITH DIFFERENTIAL (11/17/2022 4:30 AM STUDENT OUTREACH COORDINATOR) [facility] WBC 8.8 4.8 - 10.8 K/uL 11/17/2022 5:58 AM [facility] RBC 2.68(L) 4.60 - 6.20 M/uL 11/17/2022 5:58 AM [facility] HEMOGLOBIN 8.0(L) 14.0 - 18.0 g/dL 11/17/2022 5:58 AM [facility] HEMATOCRIT 27.6(L) 41.0 - 53.0 % 11/17/2022 5:58 AM [facility] MCV 103.0 84.0 - 103.0 fL 11/17/2022 5:58 AM [facility] MCH 29.9 27.0 - 34.0 pg 11/17/2022 5:58 AM [facility] MCHC 29.0(L) 30.0 - 35.0 g/dL 11/17/2022 5:58 AM [facility] RDW 18.1(H) 11.0 - 14.5 % 11/17/2022 5:58 AM [facility] RDW-STDEV 65.9(H) 37.0 - 54.0 fL 11/17/2022 5:58 AM [facility] PLATELETS 296 140 - 440 K/uL 11/17/2022 5:58 AM [facility] MPV 9.6 8.9 - 12.8 fL 11/17/2022 5:58 AM [facility] NEUTROPHILS 67 42 - 75 % 11/17/2022 5:58 AM [facility] LYMPHOCYTES 12(L) 24 - 44 % 11/17/2022 5:58 AM [facility] MONOCYTES 13(H) 2 - 10 % 11/17/2022 5:58 AM [facility] EOSINOPHILS 6 0 - 7 % 11/17/2022 5:58 AM [facility] BASOPHILS 1 0 - 1 % 11/17/2022 5:58 AM [facility] IMMATURE GRANULOCYTES 2 0 - 2 % 11/17/2022 5:58 AM [facility] NEUTROPHIL ABSOLUTE 5.91 2.00 - 8.00 K/uL 11/17/2022 5:58 AM [facility] LYMPHOCYTE ABSOLUTE 1.04(L) 1.20 - 4.00 K/uL 11/17/2022 5:58 AM [facility] MONOCYTE ABSOLUTE 1.10(H) 0.10 - 0.60 K/uL 11/17/2022 5:58 AM [facility] EOSINOPHIL ABSOLUTE 0.56 0.00 - 0.70 K/uL 11/17/2022 5:58 AM [facility] BASOPHILS ABSOLUTE 0.06 0.00 - 0.20 K/uL 11/17/2022 5:58 AM [facility] IMMATURE GRANULOCYTES ABSOLUTE 0.13(H) 0.00 - 0.10 K/uL 11/17/2022 5:58 AM [facility] Blood Collection / Unknown 11/17/2022 4:30 AM STUDENT OUTREACH COORDINATOR 11/17/2022 5:30 AM [facility] us Andre Mary FLUMER HEMATOLOGY ORDERABLES Fi nal Result [facility] CLIA # [id number] [address] [address] [place], [place] [id number] * (ABNORMAL) COMPREHENSIVE METABOLIC PANEL (11/17/2022 4:30 AM STUDENT OUTREACH COORDINATOR) [facility] SODIUM 144 136 - 145 mmol/L 11/17/2022 5:51 AM [facility] POTASSIUM 3.8 3.5 - 5.1 mmol/L 11/17/2022 5:51 AM [facility] CHLORIDE 107 98 - 107 mmol/L 11/17/2022 5:51 AM [facility] CO2 34(H) 22 - 29 mmol/L 11/17/2022 5:51 AM [facility] CALCIUM 9.1 8.8 - 10.2 mg/dL 11/17/2022 5:51 AM [facility] BUN 20 8 - 23 mg/dL 11/17/2022 5:51 AM [facility] CREATININE 1.03 0.67 - 1.17 mg/dL 11/17/2022 5:51 AM [facility] GLUCOSE 151(H) 74 - 99 mg/dL 11/17/2022 5:51 AM [facility] TOTAL PROTEIN 6.5 6.4 - 8.3 g/dL 11/17/2022 5:51 AM [facility] ALBUMIN 2.8(L) 3.5 - 5.2 g/dL 11/17/2022 5:51 AM [facility] BILIRUBIN TOTAL 0.3 0.2 - 1.0 mg/dL 11/17/2022 5:51 AM [facility] ALKALINE PHOSPHATASE 69 40 - 129 U/L 11/17/2022 5:51 AM [facility] AST 12 10 - 50 U/L 11/17/2022 5:51 AM [facility] ALT 10 <=50 U/L 11/17/2022 5:51 AM [facility] GFR >60 >=60 mL/min/1.7 3 sq meter 11/17/2022 5:51 AM [facility] Comment:eGFR calculated with 2020 CKD-EPI equation. Vegetarian diet, extremely high or low muscle mass, and may affect results. Cystatin C with Glomerular Filtration Rate is a suitable alternative for these patients. ANION GAP 3(L) 9 - 20 mmol/L 11/17/2022 5:51 AM STUDENT OUTREACH COORDINATOR [facility] Blood Collection / Unknown 11/17/2022 4:30 AM STUDENT OUTREACH COORDINATOR 11/17/2022 5:31 AM STUDENT OUTREACH COORDINATOR Andre Mary FLUMER CHEMISTRY ORDERABLES Fin al Result [facility] [employer] [facility] CLIA # [id number] [address] [address] [place] [address] documented in this encounter Visit Diagnoses Not on filedocumented in this encounter Additional Health Concerns Infection Onset Date Last Indicated Resolved Time C Diff 11/17/2022 11/17/2022 01/16/2023 1:16 AM CDT documented as of this encounter Care Teams Chair Springer Relationship Specialty Start Date End Date Shant Ballesteros Jr., MD [address] [place] [address] PCP - General Family Practice 01/19/14 documented as of this encounter
--- OUTSIDE RECORDS SUMMARY | 2025-05-22 12:09 | XMS_ITS | Encounter Summary ---
Author Organization [facility] Address [address] [place] [address] Care Team Providers Care Crew Member Name Role Phone Favian Maldonado MD, Shant Humphreys Primary Care Provider Encounter Details Date Type Department Care Team (Late st Contact Info) Description 12/06/2022 Lab Requisition [facility] Laboratory Services [address] [place] [address] Deborah Aguilar MD [address] [place] [address] Social History Tobacco Use Types Packs/Day Years Used Date Smoking Tobacco: Never Assessed Sex and Gender Information Value Date Recorded Sex Assigned at Not on file Legal Sex Male 9:45 AM ANIMAL STUNNER Gender Identity Not on file Sexual Orientation Not on file documented as of this encounter Plan of Treatment Not on file documented as of this encounter Procedures Procedure Name Priority Date/Time Associated Diagnosis Comments CBC WITH DIFFERENTIAL Routine 12/06/2022 4:50 PM ANIMAL STUNNER documented in this encounter Results * (ABNORMAL) CBC WITH DIFFERENTIAL (12/06/2022 4:50 PM ANIMAL STUNNER) WBC 7.0 4.8 - 10.8 K/uL 12/06/2022 6:27 PM ANIMAL STUNNER [facility] RBC 3.23(L) 4.60 - 6.20 M/uL 12/06/2022 6:27 PM ANIMAL STUNNER [facility] HEMOGLOBIN 9.6(L) 14.0 - 18.0 g/dL 12/06/2022 6:27 PM [facility] HEMATOCRIT 31.3(L) 41.0 - 53.0 % 12/06/2022 6:27 PM [facility] MCV 96.9 84.0 - 103.0 fL 12/06/2022 6:27 PM [facility] MCH 29.7 27.0 - 34.0 pg 12/06/2022 6:27 PM [facility] MCHC 30.7 30.0 - 35.0 g/dL 12/06/2022 6:27 PM [facility] RDW 16.9(H) 11.0 - 14.5 % 12/06/2022 6:27 PM [facility] RDW-STDEV 60.0(H) 37.0 - 54.0 fL 12/06/2022 6:27 PM [facility] PLATELETS 247 140 - 440 K/uL 12/06/2022 6:27 PM [facility] MPV 10.5 8.9 - 12.8 fL 12/06/2022 6:27 PM [facility] NEUTROPHILS 57 42 - 75 % 12/06/2022 6:27 PM [facility] LYMPHOCYTES 20(L) 24 - 44 % 12/06/2022 6:27 PM [facility] MONOCYTES 11(H) 2 - 10 % 12/06/2022 6:27 PM [facility] EOSINOPHILS 11(H) 0 - 7 % 12/06/2022 6:27 PM [facility] BASOPHILS 1 0 - 1 % 12/06/2022 6:27 PM [facility] IMMATURE GRANULOCYTES 0 0 - 2 % 12/06/2022 6:27 PM [facility] NEUTROPHIL ABSOLUTE 3.99 2.00 - 8.00 K/uL 12/06/2022 6:27 PM [facility] LYMPHOCYTE ABSOLUTE 1.43 1.20 - 4.00 K/uL 12/06/2022 6:27 PM [facility] MONOCYTE ABSOLUTE 0.77(H) 0.10 - 0.60 K/uL 12/06/2022 6:27 PM ANIMAL STUNNER [facility] EOSINOPHIL ABSOLUTE 0.76(H) 0.00 - 0.70 K/uL 12/06/2022 6:27 PM ANIMAL STUNNER [facility] BASOPHILS ABSOLUTE 0.04 0.00 - 0.20 K/uL 12/06/2022 6:27 PM ANIMAL STUNNER [facility] IMMATURE GRANULOCYTES ABSOLUTE 0.02 0.00 - 0.10 K/uL 12/06/2022 6:27 PM ANIMAL STUNNER [facility] Blood Collection / Unknown 12/06/2022 4:50 PM ANIMAL STUNNER 12/06/2022 6:16 PM ANIMAL STUNNER us Deborah Aguilar MD HEMATOLOGY ORDERABLES Final Res ult [facility] CLIA # [id number] [facility] [address] documented in this encounter Visit Diagnoses Not on filedocumented in this encounter Additional Health Concerns Infection Onset Date Last Indicated Resolved Time C Diff 11/17/2022 11/17/2022 01/16/2023 1:16 AM CDT documented as of this encounter Care Teams Crew Member Relationship Specialty Start Date End Date Shant Ballesteros Jr., MD [address] [place] [address] PCP - General Family Practice 01/19/14 documented as of this encounter
--- OUTSIDE RECORDS SUMMARY | 2025-05-22 12:09 | XMS_ITS | Encounter Summary ---
Author Organization [email or web address] [facility] Address [address] [place] [address] Care Team Providers Care Lamination Spinner Name Role Phone Favian Maldonado MD, Shant Humphreys Primary Care Provider Encounter Details Date Type Department Care Team (Late st Contact Info) Description 11/26/2022 Lab Requisition [facility] Laboratory Services [address] [place] [address] [place] [address] Low Amaya, DO [address] [place] [address] Social History Tobacco Use Types Packs/Day Years Used Date Smoking Tobacco: Never Assessed Sex and Gender Information Value Date Recorded Sex Assigned at Not on file Legal Sex Male 9:45 AM LOAN PROCESSOR Gender Identity Not on file Sexual Orientation Not on file documented as of this encounter Plan of Treatment Not on file documented as of this encounter Procedures Procedure Name Priority Date/Time Associated Diagnosis Comments CALCIUM IONIZED Routine 11/26/2022 6:20 AM LOAN PROCESSOR documented in this encounter Results * CALCIUM IONIZED (11/26/2022 6:20 AM LOAN PROCESSOR) CALCIUM IONIZED 5.3 4.8 - 5.6 mg/dL 11/27/2022 9:49 AM LOAN PROCESSOR [facility] Blood Collection / Unknown 11/26/2022 6:20 AM LOAN PROCESSOR 11/26/2022 9:28 AM LOAN PROCESSOR Narrative [facility] - 11/27/2022 9:49 AM LOAN PROCESSOR Performing Organization Information: Site ID: [id number] Name: [facility] Address: [address] [address] Director: Andrew Alvarado MD us Low Amaya DO CHEMISTRY ORDERABLES Final R esult [facility] documented in this encounter Visit Diagnoses Not on filedocumented in this encounter Additional Health Concerns Infection Onset Date Last Indicated Resolved Time C Diff 11/17/2022 11/17/2022 01/16/2023 1:16 AM CDT documented as of this encounter Care Teams Lamination Spinner Relationship Specialty Start Date End Date Shant Ballesteros Jr., MD [address] [place] [address] PCP - General Family Practice 01/19/14 documented as of this encounter
--- OUTSIDE RECORDS SUMMARY | 2025-05-22 12:09 | XMS_ITS | Encounter Summary ---
Author Organization [employer] Address [address] [place] [address] Care Team Providers Care Artist Model Name Role Phone Favian Maldonado MD, Shant Humphreys Primary Care Provider Encounter Details Date Type Department Care Team (Late st Contact Info) Description 12/10/2022 Lab Requisition [facility] Laboratory Services [address] [place] [address] [place] [address] Low Amaya, DO [address] [place] [phone] Social History Tobacco Use Types Packs/Day Years Used Date Smoking Tobacco: Never Assessed Sex and Gender Information Value Date Recorded Sex Assigned at Not on file Legal Sex Male 9:45 AM FINANCE MANAGER Gender Identity Not on file Sexual [...] CALCIUM IONIZED (12/10/2022 2:00 AM CDT) Pathologist [facility] CALCIUM IONIZED 5.4 4.7 - 5.5 mg/dL 12/11/2022 2:42 PM CDT [facility] Blood Collection / Unknown 12/10/2022 2:00 AM CDT 12/10/2022 7:02 AM CDT Narrative [facility] - 12/11/2022 2:42 PM CDT Performing Organization Information: Site ID: [place] Name: [email or web address] Address: [address] [place] [address] Director: Andrew Alvarado MD Low Amaya CHEMISTRY ORDERABLES Final R esult Performing Organization Address City/[facility]/ZIP Co de Phone Number [facility] * MAGNESIUM LEVEL (12/10/2022 2:00 AM CDT) [facility] MAGNESIUM 2.0 1.6 - 2.4 mg/dL 12/10/2022 7:38 AM CDT [facility] Blood Collection / Unknown 12/10/2022 2:00 AM CDT 12/10/2022 7:02 AM CDT Low Amaya CHEMISTRY ORDERABLES Final R esult Performing Organization Address City/[facility]/ZIP Co de Phone Number [facility] CLIA # [id number] [address] [address] [place] [address] * (ABNORMAL) TRIGLYCERIDE (12/10/2022 2:00 AM CDT) [facility] TRIGLYCERIDE 202(H) <150 mg/dL 12/10/2022 7:38 AM CDT [facility] Blood Collection / Unknown 12/10/2022 2:00 AM CDT 12/10/2022 7:02 AM CDT Narrative [facility] - 12/10/2022 7:38 AM CDT TRIGLYCERIDES mg/dL Normal < 150 Borderline High 150 - 199 High 200 - 499 Very High >= 500 Based on AHA/NCEP Guidelines. Low Amaya DO CHEMISTRY ORDERABLES Final R esult Performing Organization Address City/[facility]/ZIP Co de Phone Number [facility] CLIA # [id number] [address] [address] * PHOSPHORUS (12/10/2022 2:00 AM CDT) [facility] PHOSPHORUS 3.5 2.5 - 4.5 mg/dL 12/10/2022 7:38 AM CDT [facility] Blood Collection / Unknown 12/10/2022 2:00 AM CDT 12/10/2022 7:02 AM CDT Low Amaya DO CHEMISTRY ORDERABLES Final R [facility] Performing Organization Address [facility] Co de Phone Number [facility] CLIA # [id number] [address] [id number] * (ABNORMAL) CBC WITH DIFFERENTIAL (12/10/2022 2:00 AM CDT) [facility] WBC 7.0 4.8 - 10.8 K/uL 12/10/2022 7:10 AM CDT [facility] RBC 3.23(L) 4.60 - 6.20 M/uL 12/10/2022 7:10 AM CDT [facility] HEMOGLOBIN 9.7(L) 14.0 - 18.0 g/dL 12/10/2022 7:10 AM CDT [facility] HEMATOCRIT 31.3(L) 41.0 - 53.0 % 12/10/2022 7:10 AM [facility] MCV 96.9 84.0 - 103.0 fL 12/10/2022 7:10 AM [facility] MCH 30.0 27.0 - 34.0 pg 12/10/2022 7:10 AM [facility] MCHC 31.0 30.0 - 35.0 g/dL 12/10/2022 7:10 AM [facility] RDW 16.3(H) 11.0 - 14.5 % 12/10/2022 7:10 AM [facility] RDW-STDEV 58.5(H) 37.0 - 54.0 fL 12/10/2022 7:10 AM [facility] PLATELETS 236 140 - 440 K/uL 12/10/2022 7:10 AM [facility] MPV 11.2 8.9 - 12.8 fL 12/10/2022 7:10 AM [facility] NEUTROPHILS 56 42 - 75 % 12/10/2022 7:10 AM [facility] LYMPHOCYTES 20(L) 24 - 44 % 12/10/2022 7:10 AM [facility] MONOCYTES 14(H) 2 - 10 % 12/10/2022 7:10 AM [facility] EOSINOPHILS 7 0 - 7 % 12/10/2022 7:10 AM [facility] BASOPHILS 1 0 - 1 % 12/10/2022 7:10 AM [facility] IMMATURE GRANULOCYTES 1 0 - 2 % 12/10/2022 7:10 AM [facility] NEUTROPHIL ABSOLUTE 3.94 2.00 - 8.00 K/uL 12/10/2022 7:10 AM [facility] LYMPHOCYTE ABSOLUTE 1.42 1.20 - 4.00 K/uL 12/10/2022 7:10 AM [facility] MONOCYTE ABSOLUTE 1.01(H) 0.10 - 0.60 K/uL 12/10/2022 7:10 AM [facility] EOSINOPHIL ABSOLUTE 0.52 0.00 - 0.70 K/uL 12/10/2022 7:10 AM CDT [facility] BASOPHILS ABSOLUTE 0.06 0.00 - 0.20 K/uL 12/10/2022 7:10 AM CDT [facility] IMMATURE GRANULOCYTES ABSOLUTE 0.04 0.00 - 0.10 K/uL 12/10/2022 7:10 AM T [facility] Blood Collection / Unknown 12/10/2022 2:00 AM CDT 12/10/2022 7:02 AM CDT us Low Amaya DO HEMATOLOGY ORDERABLES Final Result [facility] CLIA # [id number] [address] [place] [address] * (ABNORMAL) COMPREHENSIVE METABOLIC PANEL (12/10/2022 2:00 AM CDT) SODIUM 136 136 - 145 mmol/L 12/10/2022 7:38 AM [facility] POTASSIUM 4.4 3.5 - 5.1 mmol/L 12/10/2022 7:38 AM [facility] CHLORIDE 102 98 - 107 mmol/L 12/10/2022 7:38 AM [facility] CO2 26 22 - 29 mmol/L 12/10/2022 7:38 AM [facility] CALCIUM 10.0 8.8 - 10.2 mg/dL 12/10/2022 7:38 AM [facility] BUN 35(H) 8 - 23 mg/dL 12/10/2022 7:38 AM [facility] CREATININE 0.94 0.67 - 1.17 mg/dL 12/10/2022 7:38 AM T [facility] GLUCOSE 117(H) 74 - 99 mg/dL 12/10/2022 7:38 AM [facility] TOTAL PROTEIN 7.0 6.4 - 8.3 g/dL 12/10/2022 7:38 AM T [facility] ALBUMIN 3.3(L) 3.5 - 5.2 g/dL 12/10/2022 7:38 AM T [facility] BILIRUBIN TOTAL 0.2 0.2 - 1.0 mg/dL 12/10/2022 7:38 AM T [facility] ALKALINE PHOSPHATASE 113 40 - 129 U/L 12/10/2022 7:38 AM T [facility] AST 17 10 - 50 U/L 12/10/2022 7:38 AM T [facility] ALT 16 <=50 U/L 12/10/2022 7:38 AM T [facility] GFR >60 >=60 mL/min/1.7 3 sq meter 12/10/2022 7:38 AM [facility] Comment:eGFR calculated with 2020 CKD-EPI equation. Vegetarian diet, extremely high or low muscle mass, and may affect results. Cystatin C with Glomerular Filtration Rate is a suitable alternative for these patients. ANION GAP 8(L) 9 - 20 mmol/L 12/10/2022 7:38 AM T [facility] Blood Collection / Unknown 12/10/2022 2:00 AM CDT 12/10/2022 7:02 AM CDT Low Amaya DO CHEMISTRY ORDERABLES Final R esult [facility] CLIA # [id number] [address] [id number] documented in this encounter Visit Diagnoses Not on filedocumented in this encounter Additional Health Concerns Infection Onset Date Last Indicated Resolved Time C Diff 11/17/2022 11/17/2022 01/16/2023 1:16 AM CDT documented as of this encounter Care Teams Artist Model Relationship Specialty Start Date End Date Shant Ballesteros Jr., MD [address] [place] [address] PCP - General Family Practice 01/19/14 documented as of this encounter
--- OUTSIDE RECORDS SUMMARY | 2025-05-22 12:09 | XMS_ITS | Patient Health Record ---
Author Organization [facility] Address [address] [place] [address] Care Team Providers Care Automotive Consultant Name Role Phone Kady Merrill Primary Care Provider Bala Wilson Unavailable [phone] KADY MERRILL Unavailable Unavailable Migration, Provider Unavailable Unavailable Miki Johnston Unavailable [phone] Tonya Woodruff Unavailable [phone] Allergies Allergen (clinical drug ingredient) Drug/Non Drug [...] Notes UA [place], [place] - [id number] Reviewed date:11/05/2024 02:44:16 PM Interpretation: Performing Lab: Notes/Report: Glucose 0 Bili 0 Ketones 0 Sp Trevor 1.030 Blood 0 pH 5.5 Protein 1+ [...] IM Intramuscular 08/04/2020 Administered Influenza (whole), CPT 66063 Inactive Unknown 08/12/2018 Administered Pneumococcal polysaccharide PPV23 [...] W/U Status Risk Notes Problem 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 Problem Calculus of kidney (65680757) Calculus of kidney (N20.0) Active confirmed Problem Nephrolithiasis (71443096) Nephrolithiasis (N20.0) Active confirmed Problem Benign hypertension (51738965) Hypertension, benign (I10) Active confirmed Problem Sleep apnea (35798441) Sleep apnea in adult (G47.30) Active confirmed Problem Gout (82504000) Gout (M10.9) Active confirmed Problem Insomnia (299892761) Insomnia, unspecified type (G47.00) Active confirmed Problem Low libido (6364040) Low libido (R68.82) Active confirmed Problem Fatigue (49279091) Fatigue (R53.83) Active conf irmed Problem Atrial fibrillation (23128711) Atrial fibrillation, unspecified type (I48.91) Active confirmed Problem Seasonal allergy (325538429) Seasonal allergies (J30.2) Active confirmed Problem Hypertension (54957631) Hypertension (I10) Active confirmed Problem Asthma without statu s asthmaticus (69620433) Uncomplicated asthma, unspecified asthma severity, unspecified whether persistent (J45.909) Active confirmed Problem Macrocytosis (33013902) Macrocytosis (D75.89) Active confirmed Problem Obstructive sleep apnea syndrome (68538057) Obstructive sleep apnea (adult) (pediatric) (327.23) 2016 Active confirmed Ramon-98 [id number]- Problem Lumbosacral spondylosis without myelopathy (31713304) 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 Active confirmed [id number]-98 [id number]- Problem Erectile dysfunction (089616252) Erectile dysfunction (302.72) 2013 Active confirmed Ramon-98 [id number]- Problem Adjustment disorder with depressed mood (16067568) Adjustment disorder with depressed mood (309.0) 2009 Problem resolved confirmed Ramon-[id number] [id number]- Problem Hand foot and mouth disease (590260732) Hand, foot, and mouth disease (074.3) 2012 Problem resolved confirmed Ramon-98 [id number]- Problem Sebaceous cyst (871537964) Sebaceous cyst (706.2) 2013 Problem resolved confirmed Ramon-98 [id number]- Problem Seborrhea (1198110361) Seborrhea (706.3) 2013 Problem resolved confirmed Ramon-98 [id number]- Problem Pressure ulcer, other site (707.09) 2017 Problem resolved confirmed Ramon-98 [id number]- Problem Fever (193081586) Fever, unspeci fied (780.60) 2011 Problem resolved confirmed Ramon-98 [id number]- Problem Palpitations (28630080) Palpitations (785.1) 2012 Problem resolved confirmed Ramon-98 [id number]- Problem Heartburn (80803090) Heartburn (787.1) 2014 Problem resolved confirmed Ramon-98 [id number]- Problem Screening for malignant neoplasm of prostate (869617675) Screening for prostate cancer (V76.44) 2017 Problem resolved confirmed Ramon-98 [id number]- Problem Spasm (96644400) Muscle spasm (728.85) 2012 Problem resolved confirmed Ramon-98 [id number]- Problem Androgen deficiency (15037379) Testosterone deficiency (257.2) 2013 Problem resolved confirmed Ramon-98 [id number]- Problem Rash (144352191) Rash (782.1) 2010 Problem resolved confirmed Rmaon-98 5911- Problem Depression (467719231) Depression (311) 2010 Problem resolved confirmed Ramon-98 5911- Problem Dizziness (532402484) Dizziness (780.4) 0 2010 Problem resolved confirmed Ramon-98 [id number]- Problem Ventricular tachycardia (10528795) Ventricular tachycardia (427.1) 2007 Problem resolved confirmed Ramon-98 [id number]- Problem Hypercholesterolemia (35643252) Hypercholesterolemia (272.0) 2012 Problem resolved confirmed Ramon-98 5911- Problem Memory loss (82472170) Memory loss (780.9) 2014 Problem resolved confirmed Ramon-98 [id number]- Problem Secondary polycythemia (90034952) 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) 2017 Problem resolved confirmed Ramon-98 [id number]- Problem Shortness of breath (732310656) Shortness of breath (786.09) 2016 Problem resolved confirmed Ramon-98 [id number]- Problem Shoulder pain (88605604) Shoulder pain (719.41) 2013 Problem resolved confirmed Ramon-98 5911- Problem Disorder of hematopoietic system (31214893) Abnormal findings on blood examination, NEC (790.99) 2013 Problem resolved confirmed Ramon-98 5911- Problem Angina (685232450) Angina (413.9) 2010 Problem resolved confirmed Ramon-98 5911- Problem 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) 2011 Problem resolved confirmed Ramon-98 5911- Problem Disorder of hematopoietic system (79584150) Other abnormal findings on blood examination (790.99) 2015 Problem resolved confirmed Ramon-98 [id number]- Problem Disorder of hematopoietic system (74381122) Other abnormal laboratory result on blood (790.99) 2007 Problem resolved confirmed Ramon-98 5911- Problem 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) Atypical mole (238.2) 2008 Problem resolved confirmed Ramon-98 5911- Problem Chest pain (66822585) Chest pain (786.51) 2014 Problem resolved confirmed Ramon-98 5911- Problem Depressive disorder (40659493) Depressive disorder not elsewhere classified (311) 2014 Problem resolved confirmed Ramon-98 5911- Problem Generalized abdomina l pain (530842364) Generalized abdominal pain (789.07) 2008 Problem resolved confirmed Ramon-98 5911- Problem Lab: Used to mat ch unlinked laboratory orders (V92) 2014 Problem resolved confirmed Ramon-98 5911- Problem Impaired fasting glycaemia (881078731) Elevated fasting glucose (790.21) 2014 Problem resolved confirmed Ramon-98 5911- Problem Hemoglobinopathy (52165107) Elevated hematocrit (282.7) 2014 Problem resolved confirmed Ramon-98 5911- Problem Abnormal chest sound s (82333467432113) Egophany (786.7) 2016 Problem resolved confirmed Ramon-98 5911- Problem Insomnia (094405868) Insomnia (307.41) 2012 Problem resolved confirmed Ramon-98 5911- Problem Pain in limb (57421963) Leg pain (729.5) 2010 Problem resolved confirmed Ramon-98 5911- Problem Rib pain (211263137) Rib pain (786.50) 2013 Problem resolved confirmed Ramon-98 5911- Problem General examination of patient (742384739) Annual exam (V70.0) 2007 Problem resolved confirmed Ramon-98 5911- Problem Staphylococcal infectious disease (78632412) Staph infection (041.19) 2015 Problem resolved confirmed Ramon-98 5911- Problem Heart disease (84952956) Asymmetrical cardiac hypertrophy (429.9) 2007 Problem resolved confirmed Ramon-98 5911- Problem Obstructive sleep apnea (35048086) Obstructive sleep apnea (780.57) 2014 Problem resolved confirmed Ramon-98 5911- Problem Stress (821761751) Stress (300.02) 2008 Problem resolved confirmed Ramon-98 5911- Problem Acute upper respiratory infection (07688927) Acute upper respiratory infection of multiple sites (465.8) 2018 Problem resolved confirmed Ramon-98 5911- Problem Congestion (44785860) Congestion (477.9) 2007 Problem resolved confirmed Ramon-98 5911- Problem Lumbar radiculopathy (431621427) Lumbar radiculopathy (722.10) 2010 Problem resolved confirmed Ramon-98 5911- Problem Acquired polycythemi a (15371301) Acquired polycythemia (289.0) 2016 Problem resolved confirmed Ramon-98 5911- Problem Acute sinusitis (69002521) Acute sinusitis (461.8) 2007 Problem resolved confirmed Ramon-98 5911- Problem Ankle pain (633297858) Ankle pain (719.47) 2013 Problem resolved confirmed Ramon-98 5911- Problem Heart murmur (12083471) Cardiac murmur (785.2) 2007 Problem resolved confirmed Ramon-98 5911- Problem Erythrocyte sedimentation rate raised (549226347) Elevated sed rate (ESR) (790.1) 2011 Problem resolved confirmed Ramon-98 5911- Problem Gynecomastia (4986809) Gynecomastia (611.1) 2015 Problem resolved confirmed Ramon-98 5911- Problem Thrombosed external hemorrhoids (04095043) Hemorrhoids, external thrombosed (455.4) 2017 Problem resolved confirmed Ramon-98 5911- Problem Disorder of lipid metabolism (165919572) Low HDL level (272.9) 2010 Problem resolved confirmed Ramon-98 5911- Problem Left ventricular hypertrophy (12547362) LVH (429.3) 2010 Problem resolved confirmed Ramon-98 5911- Problem Cellulitis and abscess of lower leg (228436507) Cellulitis of the leg (682.6) 2013 Problem resolved confirmed Ramon-98 5911- Problem Change in voice (626049679) Change in voice (784.49) 2013 Problem resolved confirmed Ramon-98 5911- Problem Acute upper respiratory infection (50930672) Upper respiratory illness (465.8) 2007 Problem resolved confirmed Ramon-98 5911- Problem Kidney stone (30108107) kidney stones (592.0) 2007 Problem resolved confirmed Ramon-98 5911- Problem Cramp in lower limb (328857092) Leg cramps (729.82) 2017 Problem resolved confirmed Ramon-98 5911- Problem Low back pain (973982718) Lower back pain (724.2) 2010 Problem resolved confirmed Ramon-98 5911- Problem Dry mouth (75060019) Dry mouth (527.7) 2014 Problem resolved confirmed Ramon-98 5911- Problem Essential hypertension (25478741) Essential hypertension (401.1) 2010 Problem resolved confirmed Ramon-98 5911- Problem Impacted cerumen (52953853) External cerumen impaction (380.4) 2011 Problem resolved confirmed Ramon-98 5911- Problem Laceration of foot (148241969) Laceration of foot (892.0) 2011 Problem resolved confirmed Ramon-98 5911- Problem Pedal edema (516544629) Pedal edema (782.3) 2014 Problem resolved confirmed Ramon-98 5911- Problem Synovial cyst (916142216) Synovial cyst, NOS (727.40) 2017 Problem resolved confirmed Ramon-98 5911- Problem Thoracic back pain (215199357) Upper back pain (724.5) 2008 Problem resolved confirmed Ramon-98 5911- Problem Seborrheic keratosis (811916951) Seborrheic keratosis, other (702.19) 2015 Problem resolved confirmed Ramon-98 5911- Vital Signs Heart Rate 94 /min 11/05/2024 Temperature 97.73 degrees Fahrenheit 11/05/2024 Height-cm 193.04 cm 11/05/2024 Blood pressure diastolic 64 mm Hg 11/05/2024 Weight-kg 130.45 kg 11/05/2024 Height 76.00 in 11/05/2024 Blood pressure systolic 101 mm Hg 11/05/2024 Weight 287.6 lbs 11/05/2024 BMI 35 kg/m2 11/05/2024 Encounters Encounter Location Date Provider Diagnosis [facility] [address] [place] [address] [address] [place] [address] 11/05/2024 Tonya Woodruff Hypertension I10 ; Testicular hypofunction E29.1 ; Nephrolithiasis N20.0 ; Fatigue R53.83 and Low libido R68.82 Migrated_Facility 0 0 07/25/2024 Provider Migration Migrated_Facility 0 0 07/26/2024 Provider Migration [facility] [address] [place] [address] Dr [address] [place] [address] 06/15/2024 Miki Vickie Calculus of kidney N20.0 [facility] [address] [place] [address] 06/19/2024 Miki Johnston Testicular hypofunct ion E29.1 [facility] [address] [place] [address] 07/03/2024 Miki Johnston Testicular hypofunct ion E29.1 [facility] [address] [place] [address] 07/09/2024 Miki Johnston Testicular hypofunct ion E29.1 [facility] [address] [place] [address] 09/25/2024 Miki Shinsay [facility] [address] [place] [address] 09/25/2024 Miki Johnston [facility] [address] [place] [address] 11/05/2024 Miki Johnston Testicular hypofunct ion E29.1 [facility] [address] [place] [address] 11/27/2024 [facility] [address] [place] [address] 12/11/2024 Tonya TrentMorales [facility] [address] [place] [address] 05/05/2025 Miki Johnston [facility] [address] [place] [address] 05/05/2025 Miki Shinsay [facility] [address] [place] [address] 05/05/2025 Miki Johnston Assessments Encounter Date Diagnosis [...] lower abdomen and groin. Pain during urination [place], red, or brown urine. Nausea and Vomiting [...] to help pass the stone. Pain Management: Gumi-xzc-xoyoffd pain relievers like ibuprofen or acetaminophen. Medications: [...] Name Order Date CBC w\ Auto Diff [id number] 06/15/2024 CBC w\ Auto Diff 88433 06/19/2024 Comprehensive Metabolic Panel (CMP) 8005 3 06/15/2024 Comprehensive Metabolic Panel (CMP) 8005 3 06/19/2024 Estradiol Level 31139 06/19/2024 Estradiol Level 65445 06/15/2024 Testosterone Total 04175 06/15/2024 Testosterone Total 93782 06/19/2024 Abdomen AP-71825 06/15/2024 Future Test Test Name Order Date CBC w\ Auto Diff 46971 03/30/2025 Comprehensive Metabolic Panel (CMP) 8005 3 03/30/2025 Estradiol Level 62336 03/30/2025 PSA Diagnostic--54357 03/30/2025 Testosterone Total 69169 03/30/2025 Insurance Providers Payer Name Payer Address Payer Phone Subscriber Number Group Number Insured Name Patient Relationship to Insured Coverage Start Date Coverage End Date [place] [employer] Commercial [address] [place] [address] [id number] Charan Smith Self - patient is the insured Medical (General) History Medical History History ICD Code Asymmetrical cardiac hypertrophy Hypertension Hypercholesterolemia Sleep apnea Osteoarthritis Testosterone deficiency Erectile dysfunction Depression OTHER MEDICAL PROVIDERS Recruiting Scheduler- Dr. Orourke Pain management- Dr. Maldonado Urologist- Dr. Cage Byproducts Extractor - Dr. Bala Juárez Thyroid tumor, benign 09/2020 Electrocution; 02/2020 Asthma CKD New onset of A-fib Surgical History Surgery Date(Month/Year) Fracture of wrist; 2004 Foot; left 2013 L4-L5 Fusion Hospitalization History Reason Date(Month/Year) New onset Afib 11/07/20 Covid 09/2020
--- OUTSIDE RECORDS SUMMARY | 2025-05-22 12:09 | XMS_ITS | Encounter Summary ---
Author Organization [facility] Address [address] [place] [address] Care Team Providers Care Technical Training Manager Name Role Phone Favian Maldonado MD, Shant Humphreys Primary Care Provider Encounter Details Date Type Department Care Team (Late st Contact Info) Description 11/09/2022 Lab Requisition [facility] Laboratory Services [address] [place] [address] Soni Jeffery MD [address] [place] [address] Social History Tobacco Use Types Packs/Day Years Used Date Smoking Tobacco: Never Assessed Sex and Gender Information Value Date Recorded Sex Assigned at Not on file Legal Sex Male 9:45 AM I O PSYCHOLOGIST Gender Identity Not on file Sexual Orientation Not on file documented as of this encounter Plan of Treatment Not on file documented as of this encounter Procedures Procedure Name Priority Date/Time Associated Diagnosis Comments CBC WITH DIFFERENTIAL Routine 11/09/2022 6:15 PM I O PSYCHOLOGIST BASIC METABOLIC PANEL Routine 11/09/2022 6:15 PM I O PSYCHOLOGIST documented in this encounter Results * (ABNORMAL) CBC WITH DIFFERENTIAL (11/09/2022 6:15 PM I O PSYCHOLOGIST) [facility] WBC 7.2 4.8 - 10.8 K/uL 11/09/2022 7:07 PM I O PSYCHOLOGIST [facility] LABORATORY SERVICES [facility] RBC 2.78(L) 4.60 - 6.20 M/uL 11/09/2022 7:07 PM [facility] HEMOGLOBIN 8.0(L) 14.0 - 18.0 g/dL 11/09/2022 7:07 PM [facility] HEMATOCRIT 27.5(L) 41.0 - 53.0 % 11/09/2022 7:07 PM [facility] MCV 98.9 84.0 - 103.0 fL 11/09/2022 7:07 PM [facility] MCH 28.8 27.0 - 34.0 pg 11/09/2022 7:07 PM [facility] MCHC 29.1(L) 30.0 - 35.0 g/dL 11/09/2022 7:07 PM [facility] RDW 15.9(H) 11.0 - 14.5 % 11/09/2022 7:07 PM [facility] RDW-STDEV 57.7(H) 37.0 - 54.0 fL 11/09/2022 7:07 PM [facility] PLATELETS 250 140 - 440 K/uL 11/09/2022 7:07 PM [facility] MPV 10.9 8.9 - 12.8 fL 11/09/2022 7:07 PM [facility] NEUTROPHILS 65 42 - 75 % 11/09/2022 7:07 PM [facility] LYMPHOCYTES 11(L) 24 - 44 % 11/09/2022 7:07 PM [facility] MONOCYTES 17(H) 2 - 10 % 11/09/2022 7:07 PM [facility] EOSINOPHILS 6 0 - 7 % 11/09/2022 7:07 PM [facility] BASOPHILS 1 0 - 1 % 11/09/2022 7:07 PM [facility] IMMATURE GRANULOCYTES 1 0 - 2 % 11/09/2022 7:07 PM [facility] NEUTROPHIL ABSOLUTE 4.64 2.00 - 8.00 K/uL 11/09/2022 7:07 PM [facility] LYMPHOCYTE ABSOLUTE 0.79(L) 1.20 - 4.00 K/uL 11/09/2022 7:07 PM [facility] MONOCYTE ABSOLUTE 1.19(H) 0.10 - 0.60 K/uL 11/09/2022 7:07 PM [facility] EOSINOPHIL ABSOLUTE 0.42 0.00 - 0.70 K/uL 11/09/2022 7:07 PM [facility] BASOPHILS ABSOLUTE 0.04 0.00 - 0.20 K/uL 11/09/2022 7:07 PM [facility] IMMATURE GRANULOCYTES ABSOLUTE 0.08 0.00 - 0.10 K/uL 11/09/2022 7:07 PM [facility] Blood Collection / Unknown 11/09/2022 6:15 PM I O PSYCHOLOGIST 11/09/2022 7:03 PM [facility] Soni Jeffery MD HEMATOLOGY ORDERABLES Final Resu lt [facility] CLIA # [id number] [facility] [address] * (ABNORMAL) BASIC METABOLIC PANEL (11/09/2022 6:15 PM I O PSYCHOLOGIST) SODIUM 140 136 - 145 mmol/L 11/09/2022 7:39 PM [facility] POTASSIUM 4.8 3.5 - 5.1 mmol/L 11/09/2022 7:39 PM [facility] CHLORIDE 106 98 - 107 mmol/L 11/09/2022 7:39 PM [facility] CO2 26 22 - 29 mmol/L 11/09/2022 7:39 PM [facility] CALCIUM 8.6(L) 8.8 - 10.2 mg/dL 11/09/2022 7:39 PM [facility] BUN 22 8 - 23 mg/dL 11/09/2022 7:39 PM [facility] CREATININE 1.15 0.67 - 1.17 mg/dL 11/09/2022 7:39 PM [facility] GLUCOSE 121(H) 74 - 99 mg/dL 11/09/2022 7:39 PM I O PSYCHOLOGIST [facility] GFR >60 >=60 mL/min/1.7 3 sq meter 11/09/2022 7:39 PM [facility] Comment:eGFR calculated with 2020 CKD-EPI equation. Vegetarian diet, extremely high or low muscle mass, and may affect results. Cystatin C with Glomerular Filtration Rate is a suitable alternative for these patients. ANION GAP 8(L) 9 - 20 mmol/L 11/09/2022 7:39 PM [facility] Blood Collection / Unknown 11/09/2022 6:15 PM I O PSYCHOLOGIST 11/09/2022 7:03 PM I O PSYCHOLOGIST Soni Jeffery MD CHEMISTRY ORDERABLES Final Resul t Performing Organization Address City/State/[facility] Co de Phone Number [facility] CLIA # [id number] [facility] [address] documented in this encounter Visit Diagnoses Not on filedocumented in this encounter Additional Health Concerns Infection Onset Date Last Indicated Resolved Time C Diff 11/17/2022 11/17/2022 01/16/2023 1:16 AM CDT documented as of this encounter Care Teams Technical Training Manager Relationship Specialty Start Date End Date Shant Ballesteros Jr., MD [address] [place] [address] PCP - General Family Practice 01/19/14 documented as of this encounter
--- OUTSIDE RECORDS SUMMARY | 2025-05-22 12:09 | XMS_ITS | Encounter Summary ---
Author Organization [facility] Address [address] [place] [address] Care Team Providers Care Relationship Banker Name Role Phone Favian Maldonado MD, Shant Humphreys Primary Care Provider Encounter Details Date Type Department Care Team (Late st Contact Info) Description 12/05/2022 Lab Requisition [facility] Laboratory Services [address] [place] [address] Low Amaya, DO [address] [place] [address] Social History Tobacco Use Types Packs/Day Years Used Date Smoking Tobacco: Never Assessed Sex and Gender Information Value Date Recorded Sex Assigned at Not on file Legal Sex Male 9:45 AM PUDDLER PILE DRIVING Gender Identity Not on file Sexual Orientation Not on file documented as of this encounter Plan of Treatment Not on file documented as of this encounter Procedures Procedure Name Priority Date/Time Associated Diagnosis Comments PHOSPHORUS Routine 12/05/2022 3:30 AM PUDDLER PILE DRIVING MAGNESIUM LEVEL Routine 12/05/2022 3:30 AM PUDDLER PILE DRIVING documented in this encounter Results * MAGNESIUM LEVEL (12/05/2022 3:30 AM PUDDLER PILE DRIVING) MAGNESIUM 12/05/2022 7:00 AM PUDDLER PILE DRIVING [facility]ATORY SERVICES [facility] Comment: Contaminated specimen, called to Humble Garcia This is a corrected result. Previous result was 1.7 mg/dL on 12/05/2022 at 0553 [employer] Blood Collection / Unknown 12/05/2022 3:30 AM PUDDLER PILE DRIVING 12/05/2022 5:21 AM PUDDLER PILE DRIVING Narrative [facility] - 12/05/2022 7:00 AM PUDDLER PILE DRIVING To be credited Contaminated specimen Low Finley Monique DO CHEMISTRY ORDERABLES Edited Result - Final Performing Organization Address City/[facility]/ZIP Co de Phone Number [facility] CLIA # [id number] [address] [facility] [address] [place] [address] * PHOSPHORUS (12/05/2022 3:30 AM PUDDLER PILE DRIVING) PHOSPHORUS 12/05/2022 7:02 AM PUDDLER PILE DRIVING [facility] Comment: Contaminated specimen. To be credited, called to Humble Garcia This is a corrected result. Previous result was 4.6 mg/dL on 12/05/2022 at 0553 [facility] Blood Collection / Unknown 12/05/2022 3:30 AM PUDDLER PILE DRIVING 12/05/2022 5:21 AM PUDDLER PILE DRIVING Low Finley Monique DO CHEMISTRY ORDERABLES Edited Result - Final Performing Organization Address [facility] Co de Phone Number [facility] CLIA # [id number] [id number] [place] [address] documented in this encounter Visit Diagnoses Not on filedocumented in this encounter Additional Health Concerns Infection Onset Date Last Indicated Resolved Time C Diff 11/17/2022 11/17/2022 01/16/2023 1:16 AM CDT documented as of this encounter Care Teams Relationship Banker Relationship Specialty Start Date End Date Shant Ballesteros Jr., MD [address] [place] [address] PCP - General Family Practice 01/19/14 documented as of this encounter
--- OUTSIDE RECORDS SUMMARY | 2025-05-22 12:09 | XMS_ITS | Encounter Summary ---
Author Organization [employer] Address 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 Gender Identity Not on file Sexual Orientation Not on file documented as of this encounter Plan of Treatment Not on file documented as of this encounter Procedures Procedure Name Priority Date/Time Associated Diagnosis Comments PHOSPHORUS Routine 12/05/2022 6:30 AM PRINTED CIRCUIT BOARD DRAFTER MAGNESIUM LEVEL Routine 12/05/2022 6:30 AM PRINTED CIRCUIT BOARD DRAFTER BASIC METABOLIC PANEL Routine 12/05/2022 6:30 AM PRINTED CIRCUIT BOARD DRAFTER documented in this encounter Results * MAGNESIUM LEVEL (12/05/2022 6:30 AM PRINTED CIRCUIT BOARD DRAFTER) MAGNESIUM 2.0 1.6 - 2.4 mg/dL 12/05/2022 8:37 AM PRINTED CIRCUIT BOARD DRAFTER [facility] Blood Collection / Unknown 12/05/2022 6:30 AM PRINTED CIRCUIT BOARD DRAFTER 12/05/2022 8:18 AM PRINTED CIRCUIT BOARD DRAFTER Low Amaya DO CHEMISTRY ORDERABLES Final R esult Performing Organization Address [facility]/ZIP Co de Phone Number [facility] CLIA # [id number] [address] [address] * PHOSPHORUS (12/05/2022 6:30 AM PRINTED CIRCUIT BOARD DRAFTER) PHOSPHORUS 4.0 2.5 - 4.5 mg/dL 12/05/2022 8:37 AM [facility] Blood Collection / Unknown 12/05/2022 6:30 AM PRINTED CIRCUIT BOARD DRAFTER 12/05/2022 8:18 AM PRINTED CIRCUIT BOARD DRAFTER Low Amaya DO CHEMISTRY ORDERABLES Final R esult Performing Organization Address [facility] Co de Phone Number [facility] CLIA # [id number] [address] [address] * (ABNORMAL) BASIC METABOLIC PANEL (12/05/2022 6:30 AM PRINTED CIRCUIT BOARD DRAFTER) SODIUM 141 136 - 145 mmol/L 12/05/2022 8:37 AM [facility] POTASSIUM 4.4 3.5 - 5.1 mmol/L 12/05/2022 8:37 AM [facility] CHLORIDE 105 98 - 107 mmol/L 12/05/2022 8:37 AM [facility] CO2 32(H) 22 - 29 mmol/L 12/05/2022 8:37 AM [facility] CALCIUM 10.2 8.8 - 10.2 mg/dL 12/05/2022 8:37 AM [facility] BUN 35(H) 8 - 23 mg/dL 12/05/2022 8:37 AM [facility] CREATININE 0.93 0.67 - 1.17 mg/dL 12/05/2022 8:37 AM [facility] GLUCOSE 116(H) 74 - 99 mg/dL 12/05/2022 8:37 AM [facility] GFR >60 >=60 mL/min/1.7 3 sq meter 12/05/2022 8:37 AM [facility] Comment:eGFR calculated with 2020 CKD-EPI equation. Vegetarian diet, extremely high or low muscle mass, and may affect results. Cystatin C with Glomerular Filtration Rate is a suitable alternative for these patients. ANION GAP 4(L) 9 - 20 mmol/L 12/05/2022 8:37 AM [facility] Blood Collection / Unknown 12/05/2022 6:30 AM PRINTED CIRCUIT BOARD DRAFTER 12/05/2022 8:18 AM PRINTED CIRCUIT BOARD DRAFTER Low Amaya DO CHEMISTRY ORDERABLES Final [facility]ult [id number] [address] [place] [address] documented in this encounter Visit Diagnoses Not on filedocumented in this encounter Additional Health Concerns Infection Onset Date Last Indicated Resolved Time C Diff 11/17/2022 11/17/2022 01/16/2023 1:16 AM CDT documented as of this encounter Care Teams Seasonal Clerk Relationship Specialty Start Date End Date Shant Ballesteros Jr., MD [address] [place] [address] PCP - General Family Practice 01/19/14 documented as of this encounter
--- OUTSIDE RECORDS SUMMARY | 2025-05-22 12:09 | XMS_ITS | Encounter Summary ---
Author Organization [employer] Address 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
--- OUTSIDE RECORDS SUMMARY | 2025-05-22 12:09 | XMS_ITS | Encounter Summary ---
Author Organization [employer] Address [address] [place] [address] Care Team Providers Care Standards Engineer Name Role Phone Favian Maldonado MD, Shant Humphreys Primary Care Provider Encounter Details Date Type Department Care Team (Late st Contact Info) Description 11/28/2022 Lab Requisition [facility] Laboratory Services [address] [place] [address] [place] [address] Low Amaya, DO [address] [place] [phone] Social History Tobacco Use Types Packs/Day Years Used Date Smoking Tobacco: Never Assessed Sex and Gender Information Value Date Recorded Sex Assigned at Not on file Legal Sex Male 9:45 AM BONUS CLERK Gender Identity Not on file Sexual Orientation Not on file documented as of this encounter Plan of Treatment Not on file documented as of this encounter Procedures Procedure Name Priority Date/Time Associated Diagnosis Comments PHOSPHORUS Routine 11/28/2022 7:48 AM BONUS CLERK MAGNESIUM LEVEL Routine 11/28/2022 7:48 AM BONUS CLERK COMPREHENSIVE METABOLIC PANEL Routine 11/28/2022 7:48 AM BONUS CLERK documented in this encounter Results * MAGNESIUM LEVEL (11/28/2022 7:48 AM BONUS CLERK) MAGNESIUM 2.0 1.6 - 2.4 mg/dL 11/28/2022 8:53 AM BONUS CLERK [facility] Blood Collection / Unknown 11/28/2022 7:48 AM BONUS CLERK 11/28/2022 8:34 AM BONUS CLERK Low Amaya DO CHEMISTRY ORDERABLES Final R esult Performing Organization Address [facility]/ZIP Co de Phone Number [facility] CLIA # [id number] [address] [address] * PHOSPHORUS (11/28/2022 7:48 AM BONUS CLERK) PHOSPHORUS 3.0 2.5 - 4.5 mg/dL 11/28/2022 8:53 AM [facility] Blood Collection / Unknown 11/28/2022 7:48 AM BONUS CLERK 11/28/2022 8:34 AM BONUS CLERK Low Amaya DO CHEMISTRY ORDERABLES Final R esult Performing Organization Address [facility]/ZIP Co de Phone Number [facility] CLIA # [id number] [address] [address] * (ABNORMAL) COMPREHENSIVE METABOLIC PANEL (11/28/2022 7:48 AM BONUS CLERK) SODIUM 143 136 - 145 mmol/L 11/28/2022 8:53 AM [facility] POTASSIUM 4.0 3.5 - 5.1 mmol/L 11/28/2022 8:53 AM [facility] CHLORIDE 103 98 - 107 mmol/L 11/28/2022 8:53 AM [facility] CO2 33(H) 22 - 29 mmol/L 11/28/2022 8:53 AM [facility] CALCIUM 9.4 8.8 - 10.2 mg/dL 11/28/2022 8:53 AM [facility] BUN 27(H) 8 - 23 mg/dL 11/28/2022 8:53 AM [facility] CREATININE 0.96 0.67 - 1.17 mg/dL 11/28/2022 8:53 AM [facility] GLUCOSE 112(H) 74 - 99 mg/dL 11/28/2022 8:53 AM [facility] TOTAL PROTEIN 7.0 6.4 - 8.3 g/dL 11/28/2022 8:53 AM [facility] ALBUMIN 3.1(L) 3.5 - 5.2 g/dL 11/28/2022 8:53 AM [facility] BILIRUBIN TOTAL 0.3 0.2 - 1.0 mg/dL 11/28/2022 8:53 AM [facility] ALKALINE PHOSPHATASE 97 40 - 129 U/L 11/28/2022 8:53 AM [facility] AST 14 10 - 50 U/L 11/28/2022 8:53 AM [facility] ALT 11 <=50 U/L 11/28/2022 8:53 AM [facility] GFR >60 >=60 mL/min/1.7 3 sq meter 11/28/2022 8:53 AM [facility] Comment:eGFR calculated with 2020 CKD-EPI equation. Vegetarian diet, extremely high or low muscle mass, and may affect results. Cystatin C with Glomerular Filtration Rate is a suitable alternative for these patients. ANION GAP 7(L) 9 - 20 mmol/L 11/28/2022 8:53 AM [facility] Blood Collection / Unknown 11/28/2022 7:48 AM BONUS CLERK 11/28/2022 8:34 AM BONUS CLERK us Low Amaya DO CHEMISTRY ORDERABLES Final R esult [facility] CLIA # [id number] [facility] [address] documented in this encounter Visit Diagnoses Not on filedocumented in this encounter Additional Health Concerns Infection Onset Date Last Indicated Resolved Time C Diff 11/17/2022 11/17/2022 01/16/2023 1:16 AM CDT documented as of this encounter Care Teams Standards Engineer Relationship Specialty Start Date End Date Shant Ballesteros Jr., MD [address] [place] [address] PCP - General Family Practice 01/19/14 documented as of this encounter
--- OUTSIDE RECORDS SUMMARY | 2025-05-22 12:09 | XMS_ITS | Encounter Summary ---
Author Organization [facility] Address [address] [place] [address] Care Team Providers Care Game Preserve Manager Name Role Phone Favian Maldonado MD, Shant Humphreys Primary Care Provider Encounter Details Date Type Department Care Team (Late st Contact Info) Description 11/10/2022 Lab Requisition [facility] Laboratory Services [address] [place] [place] [address] Soni Jeffery MD [address] [place] [address] Social History Tobacco Use Types Packs/Day Years Used Date Smoking Tobacco: Never Assessed Sex and Gender Information Value Date Recorded Sex Assigned at Not on file Legal Sex Male 9:45 AM DINING ROOM TABLES SET UP ATTENDANT Gender Identity Not on file Sexual Orientation Not on file documented as of this encounter Plan of Treatment Not on file documented as of this encounter Procedures Procedure Name Priority Date/Time Associated Diagnosis Comments CBC WITH DIFFERENTIAL Stat 11/10/2022 2:20 PM DINING ROOM TABLES SET UP ATTENDANT documented in this encounter Results * (ABNORMAL) CBC WITH DIFFERENTIAL (11/10/2022 2:20 PM DINING ROOM TABLES SET UP ATTENDANT) WBC 5.2 4.8 - 10.8 K/uL 11/10/2022 3:18 PM DINING ROOM TABLES SET UP ATTENDANT [facility] RBC 2.60(L) 4.60 - 6.20 M/uL 11/10/2022 3:18 PM DINING ROOM TABLES SET UP ATTENDANT [facility] HEMOGLOBIN 7.6(L) 14.0 - 18.0 g/dL 11/10/2022 3:18 PM [facility] HEMATOCRIT 25.3(L) 41.0 - 53.0 % 11/10/2022 3:18 PM [facility] MCV 97.3 84.0 - 103.0 fL 11/10/2022 3:18 PM [facility] MCH 29.2 27.0 - 34.0 pg 11/10/2022 3:18 PM [facility] MCHC 30.0 30.0 - 35.0 g/dL 11/10/2022 3:18 PM [facility] RDW 15.8(H) 11.0 - 14.5 % 11/10/2022 3:18 PM [facility] RDW-STDEV 56.3(H) 37.0 - 54.0 fL 11/10/2022 3:18 PM [facility] PLATELETS 249 140 - 440 K/uL 11/10/2022 3:18 PM [facility] MPV 11.0 8.9 - 12.8 fL 11/10/2022 3:18 PM [facility] NEUTROPHILS 62 42 - 75 % 11/10/2022 3:18 PM [facility] LYMPHOCYTES 15(L) 24 - 44 % 11/10/2022 3:18 PM [facility] MONOCYTES 17(H) 2 - 10 % 11/10/2022 3:18 PM [facility] EOSINOPHILS 6 0 - 7 % 11/10/2022 3:18 PM [facility] BASOPHILS 1 0 - 1 % 11/10/2022 3:18 PM [facility] IMMATURE GRANULOCYTES 1 0 - 2 % 11/10/2022 3:18 PM [facility] NEUTROPHIL ABSOLUTE 3.22 2.00 - 8.00 K/uL 11/10/2022 3:18 PM [facility] LYMPHOCYTE ABSOLUTE 0.78(L) 1.20 - 4.00 K/uL 11/10/2022 3:18 PM [facility] MONOCYTE ABSOLUTE 0.87(H) 0.10 - 0.60 K/uL 11/10/2022 3:18 PM DINING ROOM TABLES SET UP ATTENDANT [facility] EOSINOPHIL ABSOLUTE 0.30 0.00 - 0.70 K/uL 11/10/2022 3:18 PM DINING ROOM TABLES SET UP ATTENDANT [facility] BASOPHILS ABSOLUTE 0.03 0.00 - 0.20 K/uL 11/10/2022 3:18 PM DINING ROOM TABLES SET UP ATTENDANT [facility] IMMATURE GRANULOCYTES ABSOLUTE 0.03 0.00 - 0.10 K/uL 11/10/2022 3:18 PM DINING ROOM TABLES SET UP ATTENDANT [facility] Blood Collection / Unknown 11/10/2022 2:20 PM DINING ROOM TABLES SET UP ATTENDANT 11/10/2022 3:09 PM DINING ROOM TABLES SET UP ATTENDANT Soni Jeffery MD HEMATOLOGY ORDERABLES Final Resu lt [facility] CLIA # [id number] [facility] [address] documented in this encounter Visit Diagnoses Not on filedocumented in this encounter Additional Health Concerns Infection Onset Date Last Indicated Resolved Time C Diff 11/17/2022 11/17/2022 01/16/2023 1:16 AM CDT documented as of this encounter Care Teams Game Preserve Manager Relationship Specialty Start Date End Date Shant Ballesteros Jr., MD [address] [place] [address] PCP - General Family Practice 01/19/14 documented as of this encounter
--- NOTE | 2025-05-22 12:20 | CTR_ITS ---
PROCEDURE INFORMATION: Exam: CT Head Without Contrast Exam date and time: 05/22/2025 12:34 PM Age: 70 years old Clinical indication: Injury or trauma; Fall; Blunt trauma (contusions or hematomas); Without loss of consciousness; Additional info: Fall on factor x inhibitor TECHNIQUE: Imaging protocol: Computed tomography of the head without contrast. Radiation optimization: All CT scans at this facility use at least one of these dose optimization techniques: automated exposure control; mA and/or kV adjustment per patient size (includes targeted exams where dose is matched to clinical indication); or iterative reconstruction. COMPARISON: CT head wo con* [id number] 04/27/2025 4:49 PM RADIATION DOSE METRICS: Total DLP (mGy-cm): 970.3 FINDINGS: Brain: Normal. No hemorrhage. Unremarkable white matter. No mass effect or acute infarct. Cerebral ventricles: No ventriculomegaly. No midline shift. Paranasal sinuses: Visualized sinuses are unremarkable. No fluid levels. Mastoid air cells: Visualized mastoid air cells are well aerated. Bones: Unremarkable. No acute fracture. Soft tissues: Unremarkable. CT/CT head wo con* [id number] IMPRESSION: No acute intracranial abnormality.
--- NOTE | 2025-05-22 12:20 | CTR_ITS ---
PROCEDURE INFORMATION: Exam: CT Pelvis Without Contrast, Skeleton Exam date and time: 05/22/2025 12:38 PM Age: 70 years old Clinical indication: Injury or trauma; Fall; Hip; Right; Blunt trauma (contusions or hematomas) TECHNIQUE: Imaging protocol: Computed tomography of the pelvis without contrast. Exam focused on the skeleton. Radiation optimization: All CT scans at this facility use at least one of these dose optimization techniques: automated exposure control; mA and/or kV adjustment per patient size (includes targeted exams where dose is matched to clinical indication); or iterative reconstruction. COMPARISON: CT abdomen pelvis w con* [id number] 05/05/2025 12:27 PM RADIATION DOSE METRICS: Total DLP (mGy-cm): 723.5 FINDINGS: Intestine: Right lower quadrant ostomy is in place. Postsurgical changes from colectomy. Vasculature: Moderate aortoiliac atherosclerosis. Reproductive: Moderate prostatomegaly. Bones/joints: Posterior spinal fusion at L4-L5. Grade 1 anterolisthesis of L4-L5. Degenerative changes of the bilateral hips. Soft tissues: Small fat containing left inguinal hernia. PROCEDURE INFORMATION: Exam: CT Right Lower Extremity Without Contrast, Hip Exam date and time: 05/22/2025 12:38 PM Age: 70 years old Clinical indication: Injury or trauma; Fall; Hip; Right; Blunt trauma (contusions or hematomas) TECHNIQUE: Imaging protocol: CT of the right lower extremity without contrast was performed. Exam focused on the hip. Radiation optimization: All CT scans at this facility use at least one of these dose optimization techniques: automated exposure control; mA and/or kV adjustment per patient size (includes targeted exams where dose is matched to clinical indication); or iterative reconstruction. COMPARISON: PT PET skull to thigh SUBS [id number] 03/17/2024 10:45 AM RADIATION DOSE METRICS: Total DLP (mGy-cm): 680.7 FINDINGS: Bones/joints: No acute right hip fracture. Degenerative changes of the right hip. Soft tissues: Mild soft tissue swelling along the right hip. CT/CT bony pelvis [id number] IMPRESSION: 1. No acute pelvic fracture or dislocation. 2. Degenerative changes of the lumbosacral spine. Posterior spinal fusion at L4-L5. IMPRESSION: 1. No acute right hip fracture or dislocation. Degenerative changes of the right hip. 2. Mild soft tissue swelling along the right lateral hip soft tissues.
--- NOTE | 2025-05-22 12:20 | CTR_ITS ---
PROCEDURE INFORMATION: Exam: CT Pelvis Without Contrast, Skeleton Exam date and time: 05/22/2025 12:38 PM Age: 70 years old Clinical indication: Injury or trauma; Fall; Hip; Right; Blunt trauma (contusions or hematomas) TECHNIQUE: Imaging protocol: Computed tomography of the pelvis without contrast. Exam focused on the skeleton. Radiation optimization: All CT scans at this facility use at least one of these dose optimization techniques: automated exposure control; mA and/or kV adjustment per patient size (includes targeted exams where dose is matched to clinical indication); or iterative reconstruction. COMPARISON: CT abdomen pelvis w con* [id number] 05/05/2025 12:27 PM RADIATION DOSE METRICS: Total DLP (mGy-cm): 723.5 FINDINGS: Intestine: Right lower quadrant ostomy is in place. Postsurgical changes from colectomy. Vasculature: Moderate aortoiliac atherosclerosis. Reproductive: Moderate prostatomegaly. Bones/joints: Posterior spinal fusion at L4-L5. Grade 1 anterolisthesis of L4-L5. Degenerative changes of the bilateral hips. Soft tissues: Small fat containing left inguinal hernia. PROCEDURE INFORMATION: Exam: CT Right Lower Extremity Without Contrast, Hip Exam date and time: 05/22/2025 12:38 PM Age: 70 years old Clinical indication: Injury or trauma; Fall; Hip; Right; Blunt trauma (contusions or hematomas) TECHNIQUE: Imaging protocol: CT of the right lower extremity without contrast was performed. Exam focused on the hip. Radiation optimization: All CT scans at this facility use at least one of these dose optimization techniques: automated exposure control; mA and/or kV adjustment per patient size (includes targeted exams where dose is matched to clinical indication); or iterative reconstruction. COMPARISON: PT PET skull to thigh SUBS [id number] 03/17/2024 10:45 AM RADIATION DOSE METRICS: Total DLP (mGy-cm): 680.7 FINDINGS: Bones/joints: No acute right hip fracture. Degenerative changes of the right hip. Soft tissues: Mild soft tissue swelling along the right hip. CT/CT hip RT wo con* [id number] IMPRESSION: 1. No acute pelvic fracture or dislocation. 2. Degenerative changes of the lumbosacral spine. Posterior spinal fusion at L4-L5. IMPRESSION: 1. No acute right hip fracture or dislocation. Degenerative changes of the right hip. 2. Mild soft tissue swelling along the right lateral hip soft tissues.
--- NOTE | 2025-05-22 12:20 | CTR_ITS ---
PROCEDURE INFORMATION: Exam: CT Cervical Spine Without Contrast Exam date and time: 05/22/2025 12:34 PM Age: 70 years old Clinical indication: Injury or trauma; Fall; Blunt trauma; Additional info: Fall with c-spine tenderness TECHNIQUE: Imaging protocol: Computed tomography of the cervical spine without contrast. Radiation optimization: All CT scans at this facility use at least one of these dose optimization techniques: automated exposure control; mA and/or kV adjustment per patient size (includes targeted exams where dose is matched to clinical indication); or iterative reconstruction. COMPARISON: CT cervical spin wo con* [id number] 04/27/2025 4:49 PM RADIATION DOSE METRICS: Total DLP (mGy-cm): 560.8 FINDINGS: Bones: Vertebral body spurring can be seen at multiple levels. No fracture or subluxation noted. Lungs: Lung apices are normal. Thyroid: Multiple bilateral thyroid nodules are noted. Soft tissues: Unremarkable. CT/CT cervical spin wo con* [id number] IMPRESSION: 1. No acute findings. 2. Multilevel arthritic changes 3. Bilateral thyroid nodules COMMENTS: Consistent with the [place]'s Incidental Findings Committee white paper (J Am Dg Radiol 2015): In patients aged 35 years and older with an incidental thyroid nodule equal to or greater than 1.[address], MRI or extrathyroidal US, further evaluation with dedicated thyroid US is recommended for patients with normal life expectancy and without comorbidities. For smaller nodules without suspicious features, no further evaluation or follow up is recommended.
--- NOTE | 2025-05-22 12:22 | W.ED.EXTPRO ---
HPI - Extremity Problem General: Chief complaint: Extremity Injury, Lower Stated complaint: right thigh pain Time Seen by Provider: 05/22/25 12:03 Source: patient Mode of arrival: EMS Limitations: no limitations History of Present Illness: This patient was transported by EMS from his home. He apparently had a fall approximately 2 weeks ago. He has history of increasing falls because of balance issues. 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 He apparently fell struck his right hip and well and struck his head. At that time he did not feel he needed medical attention. There was no loss of consciousness associated with the fall. There was no syncope palpitations etc. He continues to engage in ADLs but then approximately 2 days ago was in bed and had during some normal movements had a severe sharp pain in his right upper leg and hip and he could not move or bear weight since that time. He has a he has a colostomy so did not need to get up for bowel movements and urinated in a urinal. He is on Xarelto because of atrial fibrillation. He has a colostomy because of colon cancer and is followed by [facility] for that condition. His CEAs have been significantly elevated recently. He denies any other pain or discomfort at this time. Associated symptoms: Deny chest pain, fever(s) or rash Related Data Home Medications ?Medication ?Instructions ?Recorded ?Confirmed saw palmetto 500 mg capsule 500 mg PO DAILY 11/15/20 05/22/25 gabapentin 300 mg capsule 300 mg PO TID PRN nerve pain 02/04/23 05/22/25 albuterol sulfate 90 mcg/actuation 2 puff inhalation Q4H PRN 10/08/24 05/22/25 aerosol inhaler Shortness Of Breath digoxin 125 mcg (0.125 mg) tablet 0.125 mg PO DAILY 10/08/24 05/22/25 epinephrine 0.3 mg/0.3 mL See Rx Instructions .Route .COMPLEX 10/08/24 05/22/25 injection, auto-injector oxycodone 10 mg tablet 10 mg PO Q6H PRN Pain 10/08/24 05/22/25 vancomycin 125 mg capsule 125 mg PO DAILY 12/04/24 05/22/25 clobetasol 0.05 % topical cream 1 applic topical BID PRN hands 02/09/25 05/22/25 testosterone 3 pump topical DAILY 02/09/25 05/22/25 allopurinol 300 mg tablet 300 mg PO DAILY 04/14/25 05/22/25 fruquintinib 5 mg capsule See Rx Instructions .Route .COMPLEX 04/14/25 05/22/25 (Fruzaqla) metoprolol tartrate 25 mg tablet 25 mg PO Q12H 04/14/25 05/22/25 midodrine 5 mg tablet See Rx Instructions .Route .COMPLEX 04/14/25 05/22/25 sucralfate 1 gram tablet 1 g PO BID 04/14/25 05/22/25 Previous Rx's ?Medication ?Instructions ?Recorded pantoprazole 40 mg tablet,delayed 40 mg PO QAM #60 tabs 02/12/25 release (Protonix) amiodarone 200 mg tablet 200 mg PO DAILY #30 tabs 03/11/25 aspirin 81 mg tablet,delayed 81 mg PO DAILY #30 tabs 03/11/25 release atorvastatin 40 mg tablet 40 mg PO BEDTIME #30 tabs 03/11/25 divalproex 500 mg tablet,delayed 500 mg PO TID #30 tabs 03/11/25 release (Depakote) trazodone 150 mg tablet 150 mg PO BEDTIME #30 tabs 03/11/25 hydrocodone 5 mg-acetaminophen 325 1 tab PO BID PRN pain #14 tabs 05/22/25 mg tablet Allergies Allergy/AdvReac Type Severity Reaction Status Date / Time apixaban Allergy Unknown Headaches Verified 05/14/25 15:48 blackberry Allergy Unknown ADR-Diarrhe Verified 05/14/25 15:48 a blueberry Allergy Unknown ADR-Diarrhe Verified 05/14/25 15:48 a egg Allergy Unknown DIARRHEA, Verified 05/14/25 15:48 VOMITING AND STOMACH CRAMPING raspberry Allergy Unknown ADR-Diarrhe Verified 05/14/25 15:48 a strawberry Allergy Unknown ADR-Diarrhe Verified 05/14/25 15:48 a tomato Allergy Unknown ADR-Gastrointestinal Verified 05/14/25 15:48 Upset oats Allergy DIARRHEA Verified 05/14/25 15:48 Opioids - Morphine Analogues Allergy ADR-Chest Verified 05/14/25 15:48 Pain caffeine AdvReac Unknown PALPITATION Verified 05/14/25 15:48 S apple AdvReac DIARRHEA, Verified 05/14/25 15:48 VOMITING AND CRAMPING meperidine (From Demerol) AdvReac EXCESSIVE Verified 05/14/25 15:48 SEDATION morphine AdvReac HALLUCINATI Verified 05/14/25 15:48 ONS Review of Systems Const: Denies: fever(s) or chills Eyes: Denies: change in vision ENMT: Denies: throat pain Card: Denies: chest pain, palpitations, syncope or pre-syncope Resp: Denies: dyspnea, productive cough or non-productive cough GI: Denies: abdominal pain, nausea or vomiting : Denies: flank pain, difficulty urinating or dysuria Musc: Reports: neck pain, back pain and extremity pain Skin/Breast: Denies: rash or pruritus Neuro: Denies: headache(s), numbness in extremities or weakness in extremities Leif/Lymph: Reports: easy bruising and easy bleeding PFSH ED PFSH: Medical History Hydrops of gallbladder Atrial fibrillation with rapid ventricular response Elevated troponin Hypotension Orthostatic hypotension Complication of ostomy Ventilator dependent Intra-abdominal abscess post-procedure Metastatic colon cancer to liver Malignant neoplasm of splenic flexure Renal hematoma Colostomy complication C. 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 (~08/2022) hospitalized in [place] Chronic sinusitis of both maxillary sinuses Gout Asperger syndrome mild Dyslipidemia Degenerative joint disease (DJD) of lumbar spine Obstructive sleep apnea Chronic low back pain Substernal goiter Asthma Restrictive lung disease due to kyphoscoliosis Suspected exposure to asbestos Allergies Right renal stone Testosterone deficiency On TRT for 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 Erectile dysfunction Opioid contract exists previous Chronic pain syndrome Surgical History Hx of bilateral cataract extraction History of colostomy (11/01/22) Colostomy revision for control of bleeding History of exploratory laparotomy (10/15/22) Exploratory laparotomy with partial colon resection and with end colostomy formation Status post left hemicolectomy (10/08/22) laparoscopic converted to open, with splenic flexure takedown and right colon mobilization, primary anastamosis History of back surgery History of shoulder surgery History of appendectomy H/O arthroscopic knee surgery H/O ankle fusion H/O wrist surgery S/P ureteral stent placement Family History Grandfather CAD (coronary artery disease) Family/Other Cancer Grandmother Dementia Stroke Mother Lung disease Other Hypertension Denies family history of Rheumatoid arthritis Diabetes Lupus Clotting disorder Hyperlipidemia Chronic kidney disease (CKD) Suicide Anesthesia complication Bleeding disorder Social History Smoking and tobacco/nicotine status: former use of tobacco/nicotine Quit status (tobacco/nicotine): has quit using Year quit tobacco: 1976 [id number] Second hand smoke exposure: Yes Alcohol intake: never Substance/Drug Use: never Lives independently: Yes Current occupational status: retired Pets and animals: Yes Do you think of yourself as: Straight/Heterosexual Current gender identity: Male Physical Exam Narrative: EXAM NARRATIVE: He is alert makes good eye contact and is in no acute distress. Const: COMMON NORMALS: no acute distress and patient oriented x3 GENERAL APPEARANCE: cooperative and comfortable NUTRITIONAL APPEARANCE: overweight HENMT: COMMON NORMALS: atraumatic, Normal nasal mucous membranes and turbinates present, moist oral mucous membranes and oropharynx normal HEAD & SCALP: atraumatic FACE & SINUS: face symmetric NOSE: Normal nasal mucous membranes and turbinates present Eye: COMMON NORMALS: Equal, round and reactive pupils present, EOMs intact bilaterally and conjunctivae normal CONJUNCTIVA: Yes conjunctivae normal PUPIL: Yes Equal, round and reactive pupils present Neck/C-Spine: CERVICAL SPINE: Yes cervical ROM abnormal (He is able to range his neck left and right approximately 10 to 15 degrees.), No Cervical spine tenderness, No step off deformity and Yes Paracervical muscle tenderness Chest: COMMONS NORMALS: normal inspection of the chest Resp: COMMON NORMALS: normal respiratory effort, No use of accessory muscles and clear to auscultation bilaterally AUSCULTATION: clear to auscultation bilaterally Cardio: COMMON NORMALS: regular rate, No murmurs present (Cardio) and Peripheral pulses 2+ throughout RATE: regular rate PERIPHERAL PULSES: Peripheral pulses 2+ throughout GI: COMMON NORMALS: Soft to palpation and non-tender PALPATION: Yes Soft to palpation OTHER: He has an ostomy in the right paramedian region of his abdomen. : COMMON NORMALS: Yes no CVA tenderness BLADDER/KIDNEY EXAM: Yes no CVA tenderness Back/Pelvis: COMMON NORMALS: no CVA tenderness and no thoracic nor lumbar tenderness Extremity: NARRATIVE EXTREMITY EXAM: His right hip appears to be swollen superiorly. There is tenderness to palpation along the lateral portion of his right upper leg and hip. Range of motion is markedly limited. There is no distal deformities noted. He does not have any tenderness to his knee or ankle joint. Neuro: COMMON NORMALS: patient oriented x3, no focal motor deficits and no sensory deficits noted Course Reevaluation(s): Reevaluation #1: Patient's imaging does not reveal any hip fracture. Does have soft tissue swelling likely intramuscular hematoma. Will go ahead and proceed with venous Doppler to establish that there is no DVT which I think is unlikely. These findings and plan was shared with the patient. Time: 14:26 Reevaluation #2: Patient's venous Doppler of his right lower extremity does not reveal any evidence of venous occlusion etc. Discussed current findings with the patient. No evidence at this time to suggest occult or pathologic fracture of his right hip or pelvis region. No venous occlusion. Most consistent with soft tissue hematoma given his CT scan findings that we will take time to resolve. I discussed this with the patient. Advised moist heat to the area. Advised increasing range of motion and other activities to help improve his functionality. Also discussed return precautions he voiced understanding and was appreciative of care. Time: 15:36 Vital Signs: Vital signs: Vital Signs Temperature 98.2 F 05/22/25 12:03 Pulse Rate 83 05/22/25 15:27 Respiratory Rate 17 05/22/25 15:27 Blood Pressure 109/65 05/22/25 15:27 Pulse Oximetry 96 05/22/25 15:27 Oxygen Delivery Me thod Room Air 05/22/25 12:03 MDM - Extremity (Nontraumatic) Medical Decision Making This patient returns to the emergency department as noted in the HPI. He had a fall approximately 1 week ago although he stated it occurred 2 weeks ago. He was a question whether he had hit his head at that time but that was not prior to the history obtained on his earlier visit to the emergency department. He has a history of colon cancer and is on a factor X inhibitor because of chronic atrial fibrillation. He states as noted in the HPI that he could not walk on his right leg because it was painful to do so. His clinical examination did not reveal any significant findings other than he had tenderness in the soft tissues of his cervical spine without any midline tenderness. He did have pain in the lateral portion of his right hip which increased with ray range of motion but no other significant findings. Because of his history of of fall with head trauma and neck pain as well as his right leg pain as noted imaging was obtained to establish there was no occult and her cranial hemorrhage etc. cervical spine fracture and/or occult hip pelvic fracture. These were all reassuring and did not reveal any evidence of such injury. I did note soft tissue swelling around the right hip supportive and suggestive of a hematoma which is likely the etiology to his pain. Further venous ultrasound was obtained to ensure that there was no occult DVT although he is at low risk given his current anticoagulation state. This was found to be reassuring and there was no evidence of this time of an ongoing emergency medical condition this was shared with the patient. He is being discharged in stable condition with a short course of analgesics and instructions on increasing his range of motion and as tolerated and close follow-up either at his primary care office or in the emergency department should his symptoms not improve or new symptoms develop etc. Medical Records I reviewed the patient's medical records. He had an ED visit on 14 May at the time of his fall and had x-rays which did not show any acute fracture at that time. Lab Data I reviewed the patient's lab results. 05/22/25 13:07 05/22/25 13:07 Radiology Impressions Cervical Spine CT 05/22/25 12:20 IMPRESSION: 1. No acute findings. 2. Multilevel arthritic changes 3. Bilateral thyroid nodules COMMENTS: Consistent with the [employer]'s Incidental Findings Committee white paper (J Am Dg Radiol 2015): In patients aged 35 years and older with an incidental thyroid nodule equal to or greater than 1.[address], MRI or extrathyroidal US, further evaluation with dedicated thyroid US is recommended for patients with normal life expectancy and without comorbidities. For smaller nodules without suspicious features, no further evaluation or follow up is recommended. Head CT 05/22/25 12:20 IMPRESSION: No acute intracranial abnormality. Hip CT 05/22/25 12:20 IMPRESSION: 1. No acute pelvic fracture or dislocation. 2. Degenerative changes of the lumbosacral spine. Posterior spinal fusion at L4-L5. IMPRESSION: 1. No acute right hip fracture or dislocation. Degenerative changes of the right hip. 2. Mild soft tissue swelling along the right lateral hip soft tissues. Pelvis CT 05/22/25 12:20 IMPRESSION: 1. No acute pelvic fracture or dislocation. 2. Degenerative changes of the lumbosacral spine. Posterior spinal fusion at L4-L5. IMPRESSION: 1. No acute right hip fracture or dislocation. Degenerative changes of the right hip. 2. Mild soft tissue swelling along the right lateral hip soft tissues. Laboratory Results WBC 7.46 10^3/uL (3.29-11.43) 05/22/25 13:07 RBC 4.42 10^6/uL (3.85-5.65) 05/22/25 13:07 Hgb 13.10 g/dL (11.27-16.99) 05/22/25 13:07 Hct 42.0 % (37-53) 05/22/25 13:07 MCV 95.0 fl (82-101) 05/22/25 13:07 MCH 29.6 pg (27-33) 05/22/25 13:07 MCHC 31.2 g/dL (30-55) 05/22/25 13:07 RDW 16.6 % (12.1-15.1) H 05/22/25 13:07 Plt Count 184 10^3/cmm (157-399) 05/22/25 13:07 MPV 10.2 fL (7.4-10.4) 05/22/25 13:07 Neut % (Auto) 68.5 % 05/22/25 13:07 Lymph % (Auto) 16.0 % 05/22/25 13:07 [place] % (Auto) 10.5 % 05/22/25 13:07 Eos % (Auto) 3.9 % 05/22/25 13:07 Baso % (Auto) 0.8 % 05/22/25 13:07 Neut # (Auto) 5.12 10^3/uL (1.8-7.7) 05/22/25 13:07 Lymph # (Auto) 1.2 10^3/uL (0.8-4.8) 05/22/25 13:07 [place] # (Auto) 0.8 10^3/uL (0.2-0.9) 05/22/25 13:07 Eos # (Auto) 0.3 10^3/uL (0.0-0.8) 05/22/25 13:07 Baso # (Auto) 0.1 10^3/uL (0.0-0.1) 05/22/25 13:07 Nucleated RBC % (auto) 0 % 05/22/25 13:07 Nucleated RBCs # 0.0 /100WBC 05/22/25 13:07 Sodium 133 mmol/L (136-145) L 05/22/25 13:07 Potassium 4.1 mmol/L (3.5-5.1) 05/22/25 13:07 Chloride 96 mmol/L (98-107) L 05/22/25 13:07 Carbon Dioxide 26 mmol/L (22-29) 05/22/25 13:07 Anion Gap 15.1 (5-19) 05/22/25 13:07 BUN 12 mg/dL (8-23) 05/22/25 13:07 Creatinine 0.9 mg/dL (0.7-1.2) 05/22/25 13:07 GFR Calculation 83.4 mL/min (90-130) L 05/22/25 13:07 Glucose 108 mg/dL (65-115) 05/22/25 13:07 Calculated Osmolality 276 mOsm/kg (285-295) L 05/22/25 13:07 Calcium 9.7 mg/dL (8.5-10.5) 05/22/25 13:07 Total Bilirubin 0.9 mg/dL (0.15-1.2) 05/22/25 13:07 AST 15 U/L (0-40) 05/22/25 13:07 ALT 10 U/L (0-41) 05/22/25 13:07 Alkaline Phosphatase 86 U/L (40-130) 05/22/25 13:07 Total Protein 7.3 g/dL (6.6-8.7) 05/22/25 13:07 Albumin 3.7 g/dL (3.5-5.2) 05/22/25 13:07 Globulin 3.6 g/dL (1.3-4.6) 05/22/25 13:07 All radiology interpretation(s) finalized by discharge Discharge Plan Discharge Patient Disposition: Home Clinical Impression: Hematoma of right hip, Colon cancer Condition: Stable Prescriptions: New hydrocodone-acetaminophen 5-325 mg tablet 1 tab PO BID PRN (Reason: pain) Qty: 14 0RF No Action saw palmetto 500 mg capsule 500 mg PO DAILY vancomycin 125 mg capsule 125 mg PO DAILY testosterone 20.25 mg/1.25 gram (1.62 %) gel in metered-dose pump 3 pump topical DAILY clobetasol 0.05 % cream 1 applic TOPICAL BID PRN (Reason: hands) pantoprazole [Protonix] 40 mg tablet,delayed release (DR/EC) 40 mg PO QAM Qty: 60 0RF sucralfate 1 gram tablet 1 g PO BID midodrine 5 mg tablet See Rx Instructions .ROUTE .COMPLEX Rx Instructions: TAKE 1 TABLET BY MOUTH THREE TIMES DAILY. HOLD FOR SBP MORE THAN 120 MMHG. allopurinol 300 mg tablet 300 mg PO DAILY metoprolol tartrate 25 mg tablet 25 mg PO Q12H Fruzaqla 5 mg capsule See Rx Instructions .ROUTE .COMPLEX Rx Instructions: Take 1 capsule by mouth daily for 3 weeks, then off 1 week. gabapentin 300 mg capsule 300 mg PO TID PRN (Reason: nerve pain) digoxin 125 mcg (0.125 mg) tablet 0.125 mg PO DAILY epinephrine 0.3 mg/0.3 mL auto-injector See Rx Instructions .ROUTE .COMPLEX Rx Instructions: INJECT CONTENTS OF 1 PEN NEEDED FOR ALLERGIC REACTION albuterol sulfate 90 mcg/actuation HFA aerosol inhaler 2 puff INHALATION Q4H PRN (Reason: Shortness Of Breath) oxycodone 10 mg tablet 10 mg PO Q6H PRN (Reason: Pain) atorvastatin 40 mg Tablet 40 mg PO BEDTIME Qty: 30 0RF aspirin 81 mg Tablet,Delayed Release (Dr/Ec) 81 mg PO DAILY Qty: 30 0RF divalproex [Depakote] 500 mg tablet,delayed release (DR/EC) 500 mg PO TID Qty: 30 0RF amiodarone 200 mg tablet 200 mg PO DAILY Qty: 30 0RF trazodone 150 mg tablet 150 mg PO BEDTIME Qty: 30 0RF Discharge Orders: Discharge ED (Routine); Ordered 05/22/25 Ordered By: George Murray Referrals: Al Álvarez MD [Primary Care Provider, [facility]] - 4-7 days Discharge Diet: Usual diet Discharge Activity: Increase activity as tolerated Patient Instructions: Opioid Safety, Pain Management, Patient Portal & Papa Instructions Activity Restrictions/Additional Instructions: As we discussed your evaluation in the emergency department today did not find any evidence of blood clot, broken bone or other potentially serious injury at this time. It appears that you likely have a collection of blood called a hematoma in the muscle and soft tissues around your hip. This will take some time to resolve and will be uncomfortable. We recommend increasing range of motion as tolerated using moist heat for 10 to 15 minutes 3-4 times a day and if your symptoms do not improve in the next 7 to 10 days or worsen at any time or any other new symptoms develop to return to this or the nearest emergency department. Print Language: Hebrew Coding Level of Care Code ED Window Display Designer for Scarlett San
[2025-05-22 13:11] LABS: Hematocrit 42.0 % (37-53); Hemoglobin 13.10 g/dL (11.27-16.99); Mean Corpuscular HGB Conc 31.2 g/dL (30-55); Mean Corpuscular Hemoglobin 29.6 pg (27-33); Mean Corpuscular Volume 95.0 fl (82-101); Nucleated Red Blood Cells % 0 %; Platelet Count 184 10^3/cmm (157-399); Red Blood Count 4.42 10^6/uL (3.85-5.65); White Blood Count 7.46 10^3/uL (3.29-11.43)
--- NOTE | 2025-05-22 13:17 | PC.PHAR ---
Pt discharged from hospital 05/14/25 with no changes to his medications. Pt states he took all his am medications. Pt has several meds that are over due by more than 30 days but he states he still takes current list.
[2025-05-22 13:31] LABS: Alanine Aminotransferase 10 U/L (0-41); Albumin Level 3.7 g/dL (3.5-5.2); Alkaline Phosphatase 86 U/L (40-130); Anion Gap 15.1 (5-19); Aspartate Amino Transferase 15 U/L (0-40); Blood Urea Nitrogen 12 mg/dL (8-23); Calcium 9.7 mg/dL (8.5-10.5); Carbon Dioxide 26 mmol/L (22-29); Chloride 96 mmol/L (98-107); Creatinine Clr Calc Pharmacy 105.2584; Globulin 3.6 g/dL (1.3-4.6); Glucose 108 mg/dL (65-115); Osmolality Calculated 276 mOsm/kg (285-295); Potassium 4.1 mmol/L (3.5-5.1); Sodium 133 mmol/L (136-145); Total Protein 7.3 g/dL (6.6-8.7)
--- NOTE | 2025-05-22 14:25 | USR_ITS ---
PROCEDURE INFORMATION: Exam: US Duplex Right Lower Extremity Veins, Limited Exam date and time: 05/22/2025 3:14 PM Age: 70 years old Clinical indication: Pain; Leg, upper and leg, lower; Right; Additional info: Swelling and pain TECHNIQUE: Imaging protocol: Real-time duplex ultrasound of the right extremity with 2-D bass scale, color Doppler flow and spectral waveform analysis including responses to compression and other maneuvers (when performed) with image documentation. Limited exam was focused on the right lower extremity veins. COMPARISON: CT hip RT wo con* [id number] 05/22/2025 12:38 PM FINDINGS: Right deep veins: Unremarkable. The common femoral, femoral, proximal profunda femoral and popliteal veins are patent without thrombus. Normal Doppler waveforms. Normal compressibility and/or augmentation response. Superficial veins: Greater saphenous vein at the saphenofemoral junction is patent without thrombus. Soft tissues: Unremarkable. US/[place] [id number] IMPRESSION: No evidence of deep vein thrombosis.
[2025-05-22] MEDS: HYDROcodone-acetaminophen 5-325 mg Tablet 1 TAB PO (14:32)
[2025-05-22 15:27] VITALS: BP 109/65; PULSE 83; RESP 17; O2SAT 96
[2025-05-22 15:54] VITALS: BP 115/64; PULSE 75; O2SAT 95
== END 2025-05-22 16:16 | disposition home or self-care (01) ==
PROVIDERS: Emergency Provider Emergency Medicine; PCP Family Medicine
DX: S70.01XA Contusion of right hip, initial encounter (principal); Z79.82 Long term (current) use of aspirin; Z87.891 Personal history of nicotine dependence; E78.5 Hyperlipidemia, unspecified; I10 Essential (primary) hypertension; W19.XXXA Unspecified fall, initial encounter; C18.5 Malignant neoplasm of splenic flexure; C78.7 Secondary malignant neoplasm of liver and intrahepatic bile duct
CPT/HCPCS: 36415; 70450; 72125; 72192; 73700; 80053; 85025; 93971; 99284; J9999

== ENCOUNTER 2025-05-27 11:04 | Inpatient (IN) | payer MEDICARE, SELFPAY ==
--- OUTSIDE RECORDS SUMMARY | 2025-05-05 09:00 | XMS_ITS ---
Author Organization [facility] Address [address] [place] [address] Care Team Providers Care Starchmaker Name Role Phone Kady Floyd Primary Care Provider [phone] Bala Wilson Unavailable [phone] KADY FLOYD Unavailable Unavailable Tonya Woodruff Unavailable [phone] REASON FOR VISIT 6m f/u w cbc,cmp, testosterone, estradiol , psa Encounters Encounter Location Date Provider Diagnosis [facility] [address] [place] [address] [address] [place] [address] 05/05/2025 Tonya Woodruff Testicular hypofunction E29.1 ; Low libido R68.82 and Fatigue R53.83 Assessments Encounter Date Diagnosis (ICD Code) Assessment Notes Treatment Notes Treatment Clinical Notes Section Notes 05/05/2025 Testicular hypofunction (ICD-10 - E29.1) 05/05/2025 Low libido (ICD-10 - R68.82) 05/05/2025 Fatigue (ICD-10 - R53.83) Plan Of Treatment No Information Progress Notes * Charan KAMARA TDOB:1955 (70 yo M)Acc No.[id number]:05/05/2025 Progress Notes Patient: Charan Robison Provider: JIMENA Ramos :1955 A ge:70 Y S ex:Male Date:05/05/2025 Address:[address] [place], [place] [id number] Pcp:Kady Floyd Subjective: * Chief Complaints: * 6 m f/u w cbc,cmp, testosterone, estradiol , psa * HPI: Naima [email or web address] Note: 70-year-old male presents to clinic for follow-up Last seen in October 2024 History nephrolithiasis-chronic, stable History of right ESWL in 2022 Low testosterone-chronic, stable- 1.62% 40.5 mg packet daily testosterone History of metastatic colorectal cancer with liver mass They were concerned about him increasing his testosterone medication, and wanted to do that. I was concerned due to him being at high risk for clot. At last visit he was doing 2 pumps to the skin CBC: CMP: TESTOSTERONE: ESTRADIOL: PSA:. Assessment: * Assessment: 1. 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 L ow libido - R68.82 3 . F atigue - R53.83 Billing Information: * Procedure Codes: * Electronic signature of JIMENA Romeo on 05/27/2025 at 11:10 AM CDT Sign off status: Pending * Provider: JIMENA Ramos Date: 05/05/2025 Generated for Man Ho/Flaquito on: 0 05/27/2025 11:10 AM CDT
[2025-05-27] VITALS (43 sets, daily range): BP systolic 121–165; BP diastolic 71–108; PULSE 79–123; RESP 10–17; TEMP 36.9; O2SAT 83–100; BMI 29.8
--- NOTE | 2025-05-27 11:04 | ECG_ITS ---
[facility] Test Date: 2025-05-27 Pat Name: Charan Voss Department: Room: Gender: Male Joint Sealer: : 1955 Requested By: Jatinder Finley Order Number: [id number] Hilary MD: Lance Feliz M.D. Measurements Intervals [place] Rate: 126 P: 0 UT: 0 QRS: 26 QRSD: 116 T: 190 QT: 329 QTc: 477 Interpretive Statements ATRIAL FIBRILLATION WITH RAPID VENTRICULAR RESPONSE MODERATE INTRAVENTRICULAR CONDUCTION DELAY [105+ ms QRS DURATION, 80+ ms Q/S IN V1/V2, NO Q AND 60+ ms R IN I/aVL/V5/V6] ST DEVIATION AND MODERATE T-WAVE ABNORMALITY, CONSIDER INFERIOR ISCHEMIA [-0.1+ mV T-WAVE IN II/aVF] Compared to ECG 05/14/2025 15:57:17 Intraventricular conduction delay now present T-wave abnormality now present Possible ischemia now present Myocardial infarct finding no longer present Electronically Signed On 05-28-2025 22:43:43 CDT by Lance Feliz M.D. [email or web address]
--- OUTSIDE RECORDS SUMMARY | 2025-05-27 11:10 | XMS_ITS | Encounter Summary ---
Author Organization [employer] Address [address] [place] [address] Care Team Providers Care Flute Grinder Name Role Phone Favian Maldonado MD, Shant Humphreys Primary Care Provider Encounter Details Date Type Department Care Team (Late st Contact Info) Description 12/07/2022 Lab Requisition [facility] Laboratory Services [address] [place] [address] Low Amaya, DO [address] [place] [phone] Social History Tobacco Use Types Packs/Day Years Used Date Smoking Tobacco: Never Assessed Sex and Gender Information Value Date Recorded Sex Assigned at Not on file Legal Sex Male 9:45 AM DIVIDEND DEPOSIT VOUCHER CLERK Gender Identity Not on file Sexual Orientation Not on file documented as of this encounter Plan of Treatment Not on file documented as of this encounter Procedures Procedure Name Priority Date/Time Associated Diagnosis Comments PHOSPHORUS Routine 12/07/2022 3:30 AM DIVIDEND DEPOSIT VOUCHER CLERK MAGNESIUM LEVEL Routine 12/07/2022 3:30 AM DIVIDEND DEPOSIT VOUCHER CLERK BASIC METABOLIC PANEL Routine 12/07/2022 3:30 AM DIVIDEND DEPOSIT VOUCHER CLERK documented in this encounter Results * (ABNORMAL) PHOSPHORUS (12/07/2022 3:30 AM DIVIDEND DEPOSIT VOUCHER CLERK) PHOSPHORUS 4.7(H) 2.5 - 4.5 mg/dL 12/07/2022 5:41 AM DIVIDEND DEPOSIT VOUCHER CLERK [facility] Blood Collection / Unknown 12/07/2022 3:30 AM DIVIDEND DEPOSIT VOUCHER CLERK 12/07/2022 5:10 AM DIVIDEND DEPOSIT VOUCHER CLERK Low Monique DO CHEMISTRY ORDERABLES Final R esult Performing Organization Address City/[facility]/ZIP Co de Phone Number [facility] CLIA # [id number] [address] [place] [address] * MAGNESIUM LEVEL (12/07/2022 3:30 AM DIVIDEND DEPOSIT VOUCHER CLERK) MAGNESIUM 1.9 1.6 - 2.4 mg/dL 12/07/2022 5:41 AM [facility] Blood Collection / Unknown 12/07/2022 3:30 AM DIVIDEND DEPOSIT VOUCHER CLERK 12/07/2022 5:10 AM DIVIDEND DEPOSIT VOUCHER CLERK Low Amaya DO CHEMISTRY ORDERABLES Final R esult Performing Organization Address City/[facility]/ZIP Co de Phone Number [facility] CLIA # [id number] [id number] [place] [address] * (ABNORMAL) BASIC METABOLIC PANEL (12/07/2022 3:30 AM DIVIDEND DEPOSIT VOUCHER CLERK) SODIUM 137 136 - 145 mmol/L 12/07/2022 5:41 AM [facility] POTASSIUM 4.2 3.5 - 5.1 mmol/L 12/07/2022 5:41 AM [facility] CHLORIDE 103 98 - 107 mmol/L 12/07/2022 5:41 AM [facility] CO2 26 22 - 29 mmol/L 12/07/2022 5:41 AM [facility] CALCIUM 9.5 8.8 - 10.2 mg/dL 12/07/2022 5:41 AM [facility] BUN 36(H) 8 - 23 mg/dL 12/07/2022 5:41 AM [facility] CREATININE 0.95 0.67 - 1.17 mg/dL 12/07/2022 5:41 AM [facility] GLUCOSE 102(H) 74 - 99 mg/dL 12/07/2022 5:41 AM [facility] GFR >60 >=60 mL/min/1.7 3 sq meter 12/07/2022 5:41 AM [facility] Comment:eGFR calculated with 2020 CKD-EPI equation. Vegetarian diet, extremely high or low muscle mass, and may affect results. Cystatin C with Glomerular Filtration Rate is a suitable alternative for these patients. ANION GAP 8(L) 9 - 20 mmol/L 12/07/2022 5:41 AM [facility] Blood Collection / Unknown 12/07/2022 3:30 AM DIVIDEND DEPOSIT VOUCHER CLERK 12/07/2022 5:10 AM DIVIDEND DEPOSIT VOUCHER CLERK Low Amaya DO CHEMISTRY ORDERABLES Final R esult [facility] CLIA # [id number] [address] [place] [address] documented in this encounter Visit Diagnoses Not on filedocumented in this encounter Additional Health Concerns Infection Onset Date Last Indicated Resolved Time C Diff 11/17/2022 11/17/2022 01/16/2023 1:16 AM CDT documented as of this encounter Care Teams Flute Grinder Relationship Specialty Start Date End Date Shant Ballesteros Jr., MD [address] [place] [address] PCP - General Family Practice 01/19/14 documented as of this encounter
--- OUTSIDE RECORDS SUMMARY | 2025-05-27 11:10 | XMS_ITS | Encounter Summary ---
Author Organization [employer] Address 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 Gender Identity Not on file Sexual [...] - 4.5 mg/dL 12/12/2022 5:57 AM CDT [facility] Blood Collection / Unknown 12/12/2022 3:15 AM CDT 12/12/2022 5:23 AM CDT Low L Monique DO CHEMISTRY ORDERABLES Final R esult Performing Organization Address [facility] de Phone Number [facility] CLIA # [id number] [address] [place] [address] * MAGNESIUM LEVEL (12/12/2022 3:15 AM CDT) MAGNESIUM 1.9 1.6 - 2.4 mg/dL 12/12/2022 5:57 AM CDT [facility] Blood Collection / Unknown 12/12/2022 3:15 AM CDT 12/12/2022 5:23 AM CDT Low Amaya CHEMISTRY ORDERABLES Final R esult Performing Organization Address [facility] de Phone Number [facility] CLIA # [id number] [address] [place] [address] * (ABNORMAL) BASIC METABOLIC PANEL (12/12/2022 3:15 AM CDT) SODIUM 135(L) 136 - 145 mmol/L 12/12/2022 5:57 AM CDT [facility] POTASSIUM 4.7 3.5 - 5.1 mmol/L 12/12/2022 5:57 AM CDT [facility] CHLORIDE 101 98 - 107 mmol/L 12/12/2022 5:57 AM CDT [facility] CO2 24 22 - 29 mmol/L 12/12/2022 5:57 AM CDT [facility] CALCIUM 10.0 8.8 - 10.2 mg/dL 12/12/2022 5:57 AM CDT [facility] BUN 42(H) 8 - 23 mg/dL 12/12/2022 5:57 AM CDT [facility] CREATININE 1.00 0.67 - 1.17 mg/dL 12/12/2022 5:57 AM CDT [facility] GLUCOSE 133(H) 74 - 99 mg/dL 12/12/2022 5:57 AM CDT [facility] GFR >60 >=60 mL/min/1.7 3 sq meter 12/12/2022 5:57 AM CDT [facility] Comment:eGFR calculated with 2020 CKD-EPI equation. Vegetarian diet, extremely high or low muscle mass, and may affect results. Cystatin C with Glomerular Filtration Rate is a suitable alternative for these patients. ANION GAP 10 9 - 20 mmol/L 12/12/2022 5:57 AM CDT [facility] Blood Collection / Unknown 12/12/2022 3:15 AM CDT 12/12/2022 5:23 AM CDT Low Amaya DO CHEMISTRY ORDERABLES Final R esult [facility] CLIA # [id number] [facility] [address] documented in this encounter Visit Diagnoses Not on filedocumented in this encounter Additional Health Concerns Infection Onset Date Last Indicated Resolved Time C Diff 11/17/2022 11/17/2022 01/16/2023 1:16 AM CDT documented as of this encounter Care Teams Fluid Designer Relationship Specialty Start Date End Date Shant Ballesteros Jr., MD [address] [place] [phone] PCP - General Family Practice 01/19/14 documented as of this encounter
--- OUTSIDE RECORDS SUMMARY | 2025-05-27 11:10 | XMS_ITS | Encounter Summary ---
Author Organization [facility] Address [address] [place] [address] Care Team Providers Care Supervisor Dried Yeast Name Role Phone Favian Maldonado MD, Shant Humphreys Primary Care Provider Encounter Details Date Type Department Care Team (Late st Contact Info) Description 11/29/2022 Lab Requisition [facility] Laboratory Services [address] [place] [address] Andre Mary, MADHU [address] [facility] [address] [place] [address] Social History Tobacco Use Types Packs/Day Years Used Date Smoking Tobacco: Never Assessed Sex and Gender Information Value Date Recorded Sex Assigned at Not on file Legal Sex Male 9:45 AM DIGITAL HARDWARE DESIGN ENGINEER Gender Identity Not on file Sexual Orientation Not on file documented as of this encounter Plan of Treatment Not on file documented as of this encounter Procedures Procedure Name Priority Date/Time Associated Diagnosis Comments CBC WITH DIFFERENTIAL Routine 11/29/2022 4:15 AM DIGITAL HARDWARE DESIGN ENGINEER documented in this encounter Results * (ABNORMAL) CBC WITH DIFFERENTIAL (11/29/2022 4:15 AM DIGITAL HARDWARE DESIGN ENGINEER) WBC 6.6 4.8 - 10.8 K/uL 11/29/2022 7:02 AM DIGITAL HARDWARE DESIGN ENGINEER [facility] RBC 2.98(L) 4.60 - 6.20 M/uL 11/29/2022 7:02 AM DIGITAL HARDWARE DESIGN ENGINEER [facility] HEMOGLOBIN 9.0(L) 14.0 - 18.0 g/dL 11/29/2022 7:02 AM [facility] HEMATOCRIT 29.9(L) 41.0 - 53.0 % 11/29/2022 7:02 AM [facility] MCV 100.3 84.0 - 103.0 fL 11/29/2022 7:02 AM [facility] MCH 30.2 27.0 - 34.0 pg 11/29/2022 7:02 AM [facility] MCHC 30.1 30.0 - 35.0 g/dL 11/29/2022 7:02 AM [facility] RDW 18.0(H) 11.0 - 14.5 % 11/29/2022 7:02 AM [facility] RDW-STDEV 65.1(H) 37.0 - 54.0 fL 11/29/2022 7:02 AM [facility] PLATELETS 226 140 - 440 K/uL 11/29/2022 7:02 AM [facility] MPV 10.5 8.9 - 12.8 fL 11/29/2022 7:02 AM [facility] NEUTROPHILS 67 42 - 75 % 11/29/2022 7:02 AM [facility] LYMPHOCYTES 13(L) 24 - 44 % 11/29/2022 7:02 AM [facility] MONOCYTES 13(H) 2 - 10 % 11/29/2022 7:02 AM [facility] EOSINOPHILS 6 0 - 7 % 11/29/2022 7:02 AM [facility] BASOPHILS 1 0 - 1 % 11/29/2022 7:02 AM [facility] IMMATURE GRANULOCYTES 1 0 - 2 % 11/29/2022 7:02 AM [facility] NEUTROPHIL ABSOLUTE 4.47 2.00 - 8.00 K/uL 11/29/2022 7:02 AM [facility] LYMPHOCYTE ABSOLUTE 0.88(L) 1.20 - 4.00 K/uL 11/29/2022 7:02 AM [facility] MONOCYTE ABSOLUTE 0.85(H) 0.10 - 0.60 K/uL 11/29/2022 7:02 AM DIGITAL HARDWARE DESIGN ENGINEER [facility] EOSINOPHIL ABSOLUTE 0.37 0.00 - 0.70 K/uL 11/29/2022 7:02 AM [facility] BASOPHILS ABSOLUTE 0.04 0.00 - 0.20 K/uL 11/29/2022 7:02 AM [facility] IMMATURE GRANULOCYTES ABSOLUTE 0.03 0.00 - 0.10 K/uL 11/29/2022 7:02 AM [facility] Blood Collection / Unknown 11/29/2022 4:15 AM DIGITAL HARDWARE DESIGN ENGINEER 11/29/2022 6:48 AM DIGITAL HARDWARE DESIGN ENGINEER us Andre Mary SALES AND SERVICE REPRESENTATIVE HEMATOLOGY ORDERABLES Fi nal Result [facility] CLIA # [id number] [address] [place] [address] documented in this encounter Visit Diagnoses Not on filedocumented in this encounter Additional Health Concerns Infection Onset Date Last Indicated Resolved Time C Diff 11/17/2022 11/17/2022 01/16/2023 1:16 AM CDT documented as of this encounter Care Teams Supervisor Dried Yeast Relationship Specialty Start Date End Date Shant Ballesteros Jr., MD [address] [place] [address] PCP - General Family Practice 01/19/14 documented as of this encounter
--- OUTSIDE RECORDS SUMMARY | 2025-05-27 11:10 | XMS_ITS | Encounter Summary ---
Author Organization [employer] Address 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 Gender Identity Not on file Sexual Orientation [...] CBC WITH DIFFERENTIAL (12/13/2022 4:30 AM CDT) [facility] WBC 6.0 4.8 - 10.8 K/uL 12/13/2022 5:36 AM CDT [facility] SERVICES [facility] RBC 3.36(L) 4.60 - 6.20 [...] Resu lt [facility] CLIA # [id number] [address] [place] [address] * (ABNORMAL) TESTOSTERONE FREE AND TOTAL (12/13/2022 4:30 AM CDT) [facility] TESTOSTERONE 28(L) 250 - 1100 ng/dL 12/16/2022 11:31 AM CDT [facility] Comment: Men with clinically significant hypogonadal symptoms and testosterone values repeatedly in the range of the 200-300 ng/dL or less, may benefit from testosterone treatment after adequate risk and benefits counseling. For additional information, please refer to https://education.[employer]/faq/VZU977 (This link is being provided for informational/educational purposes only.) (Note) This test was developed and its analytical performance characteristics have been determined by [employer]. It has not been cleared or approved by the FDA. This assay has been validated pursuant to the CLIA regulations and is used for clinical purposes. TESTOSTERONE FREE 4.3(L) 35.0 - 155.0 pg/mL 12/16/2022 11:31 AM CDT [facility] Comment: (Note) This test was developed and its analytical performance characteristics have been determined by [employer]. It has not been cleared or approved by the FDA. This assay has been validated pursuant to the CLIA regulations and is used for clinical purposes. [facility] [address] [place] [address],[address] [place] [id number] Manuel Tirado MD Blood Collection / Unknown 12/13/2022 4:30 AM CDT 12/13/2022 7:43 AM CDT Narrative [facility] - 12/16/2022 11:31 AM CDT Performing Organization Information: Site ID: [id number] Name: [facility] Address: [address] [place] [address], [address] [place] [address] Director: Manuel Tirado MD Esther Sarmiento MD CHEMISTRY ORDERABLES Final Resul t [facility] documented in this encounter Visit Diagnoses Not on filedocumented in this encounter Additional Health Concerns Infection Onset Date Last Indicated Resolved Time C Diff 11/17/2022 11/17/2022 01/16/2023 1:16 AM CDT documented as of this encounter Care Teams Computer Game Tester Relationship Specialty Start Date End Date Shant Ballesteros Jr., MD [address] [place] [address] PCP - General Family Practice 01/19/14 documented as of this encounter
--- OUTSIDE RECORDS SUMMARY | 2025-05-27 11:10 | XMS_ITS | Encounter Summary ---
Author Organization [employer] Address [address] [place] [address] Care Team Providers Care Body Press Operator Name Role Phone Favian Maldonado MD, Shatn Humphreys Primary Care Provider Encounter Details Date Type Department Care Team (Late st Contact Info) Description 12/10/2022 Lab Requisition [facility] Laboratory Services [address] [place] [address] Low Amaya, DO [address] [place] [phone] Social History Tobacco Use Types Packs/Day Years Used Date Smoking Tobacco: Never Assessed Sex and Gender Information Value Date Recorded Sex Assigned at Not on file Legal Sex Male 9:45 AM TOASTER ELEMENT REPAIRER Gender Identity Not on file Sexual [...] Performing Organization Information: Site ID: [place] Name: [facility] Address: [address] [place] [address] Director: Andrew Alvarado MD Low Amaya CHEMISTRY ORDERABLES Final R esult Performing Organization Address City/[facility]/ZIP Co de Phone Number [facility] * MAGNESIUM LEVEL (12/10/2022 2:00 AM CDT) [facility] MAGNESIUM 2.0 1.6 - 2.4 mg/dL 12/10/2022 7:38 AM CDT [facility] Blood Collection / Unknown 12/10/2022 2:00 AM CDT 12/10/2022 7:02 AM CDT Low Amaya CHEMISTRY ORDERABLES Final R esult Performing Organization Address City/[facility]/ZIP Co de Phone Number [facility] CLIA # [id number] [address] [address] [place] [address] * (ABNORMAL) TRIGLYCERIDE (12/10/2022 2:00 AM CDT) [facility] TRIGLYCERIDE 202(H) <150 mg/dL 12/10/2022 7:38 AM CDT [facility] Blood Collection / Unknown 12/10/2022 2:00 AM CDT 12/10/2022 7:02 AM CDT Narrative [facility] - 12/10/2022 7:38 AM CDT TRIGLYCERIDES mg/dL Normal < 150 Borderline High 150 - 199 High 200 - 499 Very High >= 500 Based on AHA/NCEP Guidelines. Low Amaya DO CHEMISTRY ORDERABLES Final R esult Performing Organization Address City/[facility]/ZIP Co de Phone Number [facility] CLIA # [id number] [address] [address] * PHOSPHORUS (12/10/2022 2:00 AM CDT) [facility] PHOSPHORUS 3.5 2.5 - 4.5 mg/dL 12/10/2022 7:38 AM CDT [facility] Blood Collection / Unknown 12/10/2022 2:00 AM CDT 12/10/2022 7:02 AM CDT Low Amaya DO CHEMISTRY ORDERABLES Final R [facility] Performing Organization Address [facility] Co de Phone Number [facility] CLIA # [id number] [address] [address] * (ABNORMAL) CBC WITH DIFFERENTIAL (12/10/2022 2:00 AM CDT) [facility] WBC 7.0 4.8 - 10.8 K/uL 12/10/2022 7:10 AM CDT [facility] RBC 3.23(L) 4.60 - 6.20 M/uL 12/10/2022 7:10 AM CDT [facility] HEMOGLOBIN 9.7(L) 14.0 - 18.0 g/dL 12/10/2022 7:10 AM CDT [facility] HEMATOCRIT 31.3(L) 41.0 - 53.0 % 12/10/2022 7:[address] [facility] MCV 96.9 84.0 - 103.0 fL 12/10/2022 7:[address] [facility] MCH 30.0 27.0 - 34.0 pg 12/10/2022 7:[address] [facility] MCHC 31.0 30.0 - 35.0 g/dL 12/10/2022 7:[address] [facility] RDW 16.3(H) 11.0 - 14.5 % 12/10/2022 7:[address] [facility] RDW-STDEV 58.5(H) 37.0 - 54.0 fL 12/10/2022 7:[address] [facility] PLATELETS 236 140 - 440 K/uL 12/10/2022 7:[address] [facility] MPV 11.2 8.9 - 12.8 fL 12/10/2022 7:[address] [facility] NEUTROPHILS 56 42 - 75 % 12/10/2022 7:[address] [facility] LYMPHOCYTES 20(L) 24 - 44 % 12/10/2022 7:[address] [facility] MONOCYTES 14(H) 2 - 10 % 12/10/2022 7:[address] [facility] EOSINOPHILS 7 0 - 7 % 12/10/2022 7:[address] [facility] BASOPHILS 1 0 - 1 % 12/10/2022 7:[address] [facility] IMMATURE GRANULOCYTES 1 0 - 2 % 12/10/2022 7:[address] [facility] NEUTROPHIL ABSOLUTE 3.94 2.00 - 8.00 K/uL 12/10/2022 7:[address] [facility] LYMPHOCYTE ABSOLUTE 1.42 1.20 - 4.00 K/uL 12/10/2022 7:[address] [facility] MONOCYTE ABSOLUTE 1.01(H) 0.10 - 0.60 K/uL 12/10/2022 7:[address] [facility] EOSINOPHIL ABSOLUTE 0.52 0.00 - 0.70 K/uL 12/10/2022 7:10 AM CDT [facility] BASOPHILS ABSOLUTE 0.06 0.00 - 0.20 K/uL 12/10/2022 7:10 AM CDT [facility] IMMATURE GRANULOCYTES ABSOLUTE 0.04 0.00 - 0.10 K/uL 12/10/2022 7:10 AM T [facility] Blood Collection / Unknown 12/10/2022 2:00 AM CDT 12/10/2022 7:02 AM CDT us Low Amaya DO HEMATOLOGY ORDERABLES Final Result [facility] CLIA # [id number] [address] [place] [address] * (ABNORMAL) COMPREHENSIVE METABOLIC PANEL (12/10/2022 2:00 AM CDT) SODIUM 136 136 - 145 mmol/L 12/10/2022 7:[address] [facility] POTASSIUM 4.4 3.5 - 5.1 mmol/L 12/10/2022 7:[address] [facility] CHLORIDE 102 98 - 107 mmol/L 12/10/2022 7:[address] [facility] CO2 26 22 - 29 mmol/L 12/10/2022 7:[address] [facility] CALCIUM 10.0 8.8 - 10.2 mg/dL 12/10/2022 7:[address] [facility] BUN 35(H) 8 - 23 mg/dL 12/10/2022 7:[address] [facility] CREATININE 0.94 0.67 - 1.17 mg/dL 12/10/2022 7:38 AM T [facility] GLUCOSE 117(H) 74 - 99 mg/dL 12/10/2022 7:[address] [facility] TOTAL PROTEIN 7.0 6.4 - 8.3 g/dL 12/10/2022 7:38 AM T [facility] ALBUMIN 3.3(L) 3.5 - 5.2 g/dL 12/10/2022 7:38 AM T [facility] BILIRUBIN TOTAL 0.2 0.2 - 1.0 mg/dL 12/10/2022 7:38 AM T [facility] ALKALINE PHOSPHATASE 113 40 - 129 U/L 12/10/2022 7:38 AM T [facility] AST 17 10 - 50 U/L 12/10/2022 7:38 AM T [facility] ALT 16 <=50 U/L 12/10/2022 7:38 AM T [facility] GFR >60 >=60 mL/min/1.7 3 sq meter 12/10/2022 7:[address] [facility] Comment:eGFR calculated with 2020 CKD-EPI equation. Vegetarian diet, extremely high or low muscle mass, and may affect results. Cystatin C with Glomerular Filtration Rate is a suitable alternative for these patients. ANION GAP 8(L) 9 - 20 mmol/L 12/10/2022 7:38 AM T [facility] Blood Collection / Unknown 12/10/2022 2:00 AM CDT 12/10/2022 7:02 AM CDT Low Amaya DO CHEMISTRY ORDERABLES Final R esult [facility] CLIA # [id number] [address] [address] documented in this encounter Visit Diagnoses Not on filedocumented in this encounter Additional Health Concerns Infection Onset Date Last Indicated Resolved Time C Diff 11/17/2022 11/17/2022 01/16/2023 1:16 AM CDT documented as of this encounter Care Teams Body Press Operator Relationship Specialty Start Date End Date Shant Ballesteros Jr., MD [address] [place] [address] PCP - General Family Practice 01/19/14 documented as of this encounter
--- OUTSIDE RECORDS SUMMARY | 2025-05-27 11:10 | XMS_ITS | Encounter Summary ---
Author Organization [facility] Address [address] [place] [address] Care Team Providers Care Business Department Chair Name Role Phone Favian Maldonado MD, Shant Humphreys Primary Care Provider Reason for Referral * Outpatient Services (Routine) - Closed Specialty Diagnoses / Procedures Referred By Delfin jerome Referred To Contact Diagnoses Other nonspecific findings on examination of blood(790.99) Procedures MRI BRAIN W WO CONTRAST Shant Ballesteros Jr., MD [address] [place] [address] Phone: tel: fax: [facility] Pre[facility] [place] CALL TO MAKE APPOINTMENT ONLY [address] [place] [address] Phone: tel: fax: Referral ID Status Reason Start Date Expiration Date V isits Requested Visits Authorized [id number] Closed F MC TO SCHEDULE ([facility]) 01/18/2014 02/18/2015 1 1 * Outpatient Services (Routine) - Closed Specialty Diagnoses / Procedures Referred By Delfin t Referred To Contact Diagnoses Other nonspecific findings on examination of blood(790.99) Procedures MRA VENOUS HEAD WO CONTRAST Shant Ballesteros Jr., MD [address] [place] [address] Phone: tel: fax: [employer] Pre-Registration [place] CALL TO MAKE APPOINTMENT ONLY [address] [place] [address] Phone: tel: fax: Referral ID Status Reason Start Date Expiration Date V isits Requested Visits Authorized [id number] Closed F MC TO SCHEDULE ([facility]) 01/18/2014 02/18/2015 1 1 Encounter Details Date Type Department Care Team (Late st Contact Info) Description 01/18/2014 Ancillary Orders [facility] Pre-Registration [place] CALL TO MAKE APPOINTMENT ONLY [address] [place] [facility] [place] [address] Shant Ballesteros Jr., MD [address] [place] [address] Other nonspecific findings on examination [...] No significant abnormality. Tripp - uploaded from [facility]- Narrative Procedure Note Philippe Mendiola MD - [...] No significant abnormality. Tripp - [facility] us Shant Ballesteros Jr., MD MR ORDERABLES [...] Impression: Unremarkable exam. CHRIS/nikki - uploaded from [facility] - Narrative Procedure Note Philippe Mendiola MD [...] Impression: Unremarkable exam. MWKleber/nikki - uploaded from [facility] - us Shant Ballesteros Jr., MD MR [...] blood documented in this encounter Care Teams Business Department Chair Relationship Specialty Start Date End Date Shant Ballesteros Jr., MD [address] [place] [address] PCP - General Family Practice 01/19/14 documented as of this encounter
--- OUTSIDE RECORDS SUMMARY | 2025-05-27 11:10 | XMS_ITS | Encounter Summary ---
Author Organization [facility] Address 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 Gender Identity Not on file Sexual Orientation Not on file documented as of this encounter Plan of Treatment Not on file documented as of this encounter Procedures Procedure Name Priority Date/Time Associated Diagnosis Comments CBC WITH DIFFERENTIAL Routine 12/17/2022 3:30 AM CDT documented in this encounter Results * (ABNORMAL) CBC WITH DIFFERENTIAL (12/17/2022 3:30 AM CDT) [facility] WBC 7.8 4.8 - 10.8 K/uL 12/17/2022 6:20 AM T [facility] RBC 3.85(L) 4.60 - 6.20 M/uL 12/17/2022 6:20 AM T [facility] HEMOGLOBIN 11.5(L) 14.0 - 18.0 g/dL 12/17/2022 6:20 AM T [facility] HEMATOCRIT 36.6(L) 41.0 - 53.0 % 12/17/2022 6:20 AM T [facility] MCV 95.1 84.0 - 103.0 fL 12/17/2022 6:20 AM [facility] MCH 29.9 27.0 - 34.0 pg 12/17/2022 6:20 AM [facility] MCHC 31.4 30.0 - 35.0 g/dL 12/17/2022 6:20 AM [facility] RDW 15.6(H) 11.0 - 14.5 % 12/17/2022 6:20 AM [facility] RDW-STDEV 54.4(H) 37.0 - 54.0 fL 12/17/2022 6:20 AM [facility] PLATELETS 282 140 - 440 K/uL 12/17/2022 6:20 AM [facility] MPV 10.7 8.9 - 12.8 fL 12/17/2022 6:20 AM [facility] NEUTROPHILS 58 42 - 75 % 12/17/2022 6:20 AM [facility] LYMPHOCYTES 22(L) 24 - 44 % 12/17/2022 6:20 AM [facility] MONOCYTES 12(H) 2 - 10 % 12/17/2022 6:20 AM [facility] EOSINOPHILS 8(H) 0 - 7 % 12/17/2022 6:20 AM [facility] BASOPHILS 1 0 - 1 % 12/17/2022 6:20 AM CDT [facility] IMMATURE GRANULOCYTES 1 0 - 2 % 12/17/2022 6:20 AM CDT [facility] NEUTROPHIL ABSOLUTE 4.48 2.00 - 8.00 K/uL 12/17/2022 6:20 AM CDT [facility] LYMPHOCYTE ABSOLUTE 1.67 1.20 - 4.00 K/uL 12/17/2022 6:20 AM CDT [facility] MONOCYTE ABSOLUTE 0.90(H) 0.10 - 0.60 K/uL 12/17/2022 6:20 AM CDT [facility] EOSINOPHIL ABSOLUTE 0.61 0.00 - 0.70 K/uL 12/17/2022 6:20 AM CDT [facility] BASOPHILS ABSOLUTE 0.06 0.00 - 0.20 K/uL 12/17/2022 6:20 AM CDT [facility] IMMATURE GRANULOCYTES ABSOLUTE 0.04 0.00 - 0.10 K/uL 12/17/2022 6:20 AM CDT [facility] Blood Collection / Unknown 12/17/2022 3:30 AM CDT 12/17/2022 6:14 AM CDT us Andre Mary BLOCK SORTER HEMATOLOGY ORDERABLES Fi nal Result Performing Organization Address City/State/[facility] Co de Phone Number [facility] CLIA # [id number] [address] [place] [address] documented in this encounter Visit Diagnoses Not on filedocumented in this encounter Additional Health Concerns Infection Onset Date Last Indicated Resolved Time C Diff 11/17/2022 11/17/2022 01/16/2023 1:16 AM CDT documented as of this encounter Care Teams Electric Distribution Engineer Relationship Specialty Start Date End Date Shant Ballesteros Jr., MD [address] [place] [address] PCP - General Family Practice 01/19/14 documented as of this encounter
--- OUTSIDE RECORDS SUMMARY | 2025-05-27 11:10 | XMS_ITS | Encounter Summary ---
Author Organization [facility] Address 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 Gender Identity Not on file Sexual Orientation Not on file documented as of this encounter Plan of Treatment Not on file documented as of this encounter Procedures Procedure Name Priority Date/Time Associated Diagnosis Comments EXTRA TUBE (GREEN) Routine 12/06/2022 3:00 AM BAKERY TECHNICIAN documented in this encounter Results * EXTRA TUBE (GREEN) (12/06/2022 3:00 AM BAKERY TECHNICIAN) Blood Collection / Unknown 12/06/2022 3:00 AM BAKERY TECHNICIAN 12/06/2022 7:33 AM BAKERY TECHNICIAN us Esther Sarmiento MD CHEMISTRY ORDERABLES Final Resul t [facility] CLIA # [id number] [address] [facility] [place] [address] documented in this encounter Visit Diagnoses Not on filedocumented in this encounter Additional Health Concerns Infection Onset Date Last Indicated Resolved Time C Diff 11/17/2022 11/17/2022 01/16/2023 1:16 AM CDT documented as of this encounter Care Teams Head Sugar Reprocess Operator Relationship Specialty Start Date End Date Shant Ballesteros Jr., MD [address] [place] [address] PCP - General Family Practice 01/19/14 documented as of this encounter
--- OUTSIDE RECORDS SUMMARY | 2025-05-27 11:10 | XMS_ITS | Encounter Summary ---
Author Organization [employer] Address 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 Gender Identity Not on file Sexual Orientation [...] - 4.5 mg/dL 12/09/2022 6:34 AM CDT [facility] [employer] [facility] Blood Collection / Unknown 12/09/2022 4:20 AM CDT 12/09/2022 6:15 AM CDT Esther Sarmiento MD CHEMISTRY ORDERABLES Final Resul t Performing Organization Address [facility] Co de Phone Number [facility] CLIA # [id number] [address] [address] * MAGNESIUM LEVEL (12/09/2022 4:20 AM CDT) MAGNESIUM 2.0 1.6 - 2.4 mg/dL 12/09/2022 6:34 AM CDT [facility] [employer] [facility] Blood Collection / Unknown 12/09/2022 4:20 AM CDT 12/09/2022 6:15 AM CDT Esther Sarmiento MD CHEMISTRY ORDERABLES Final Resul t Performing Organization Address [facility] Co de Phone Number [facility] [employer] [facility] CLIA # [id number] [address] [address] * (ABNORMAL) COMPREHENSIVE METABOLIC PANEL (12/09/2022 4:20 AM CDT) SODIUM 136 136 - 145 mmol/L 12/09/2022 6:34 AM CDT [facility] [employer] [facility] POTASSIUM 4.2 3.5 - 5.1 mmol/L 12/09/2022 6:34 AM CDT [facility] [employer] [facility] CHLORIDE 103 98 - 107 mmol/L 12/09/2022 6:34 AM [facility] CO2 27 22 - 29 mmol/L 12/09/2022 6:34 AM CDT [facility] [employer] [facility] CALCIUM 9.8 8.8 - 10.2 mg/dL 12/09/2022 6:34 AM CDT [facility] [employer] [facility] BUN 34(H) 8 - 23 mg/dL 12/09/2022 6:34 AM CDT [facility] CREATININE 0.89 0.67 - 1.17 mg/dL 12/09/2022 6:34 AM T [facility] GLUCOSE 136(H) 74 - 99 mg/dL 12/09/2022 6:34 AM T [facility] TOTAL PROTEIN 7.2 6.4 - 8.3 g/dL 12/09/2022 6:34 AM [facility] ALBUMIN 3.4(L) 3.5 - 5.2 g/dL 12/09/2022 6:34 AM T [facility] BILIRUBIN TOTAL 0.2 0.2 - 1.0 mg/dL 12/09/2022 6:34 AM [facility] ALKALINE PHOSPHATASE 116 40 - 129 U/L 12/09/2022 6:34 AM [facility] AST 16 10 - 50 U/L 12/09/2022 6:34 AM [facility] ALT 17 <=50 U/L 12/09/2022 6:34 AM [facility] GFR >60 >=60 mL/min/1.7 3 sq meter 12/09/2022 6:34 AM [facility] Comment:eGFR calculated with 2020 CKD-EPI equation. Vegetarian diet, extremely high or low muscle mass, and may affect results. Cystatin C with Glomerular Filtration Rate is a suitable alternative for these patients. ANION GAP 6(L) 9 - 20 mmol/L 12/09/2022 6:34 AM [facility] Blood Collection / Unknown 12/09/2022 4:20 AM CDT 12/09/2022 6:15 AM CDT us Esther Sarmiento MD CHEMISTRY ORDERABLES Final Resul t [facility] CLIA # [id number] [address] [address] documented in this encounter Visit Diagnoses Not on filedocumented in this encounter Additional Health Concerns Infection Onset Date Last Indicated Resolved Time C Diff 11/17/2022 11/17/2022 01/16/2023 1:16 AM CDT documented as of this encounter Care Teams Behavioral Intervention Specialist Relationship Specialty Start Date End Date Shant Ballesteros Jr., MD [address] [place] [address] PCP - General Family Practice 01/19/14 documented as of this encounter
--- OUTSIDE RECORDS SUMMARY | 2025-05-27 11:10 | XMS_ITS | Encounter Summary ---
Author Organization [employer] Address 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 Gender Identity Not on file Sexual Orientation Not on file documented as of this encounter Plan of Treatment Not on file documented as of this encounter Procedures Procedure Name Priority Date/Time Associated Diagnosis Comments PHOSPHORUS Routine 11/30/2022 4:55 AM MOVIE THEATER USHER MAGNESIUM LEVEL Routine 11/30/2022 4:55 AM MOVIE THEATER USHER BASIC METABOLIC PANEL Routine 11/30/2022 4:55 AM MOVIE THEATER USHER documented in this encounter Results * MAGNESIUM LEVEL (11/30/2022 4:55 AM MOVIE THEATER USHER) MAGNESIUM 2.0 1.6 - 2.4 mg/dL 11/30/2022 8:00 AM MOVIE THEATER USHER [facility] Blood Collection / Unknown 11/30/2022 4:55 AM MOVIE THEATER USHER 11/30/2022 6:21 AM MOVIE THEATER USHER Low Amaya DO CHEMISTRY ORDERABLES Final R esult Performing Organization Address [facility]/ZIP Co de Phone Number [facility] CLIA # [id number] [address] [address] * PHOSPHORUS (11/30/2022 4:55 AM MOVIE THEATER USHER) PHOSPHORUS 3.6 2.5 - 4.5 mg/dL 11/30/2022 6:35 AM [facility] Blood Collection / Unknown 11/30/2022 4:55 AM MOVIE THEATER USHER 11/30/2022 6:21 AM MOVIE THEATER USHER Low Amaya DO CHEMISTRY ORDERABLES Final R esult Performing Organization Address [facility]/ZIP Co de Phone Number [facility] CLIA # [id number] [address] [address] * (ABNORMAL) BASIC METABOLIC PANEL (11/30/2022 4:55 AM MOVIE THEATER USHER) SODIUM 140 136 - 145 mmol/L 11/30/2022 6:35 AM [facility] POTASSIUM 4.1 3.5 - 5.1 mmol/L 11/30/2022 6:35 AM [facility] CHLORIDE 101 98 - 107 mmol/L 11/30/2022 6:35 AM [facility] CO2 34(H) 22 - 29 mmol/L 11/30/2022 6:35 AM [facility] CALCIUM 9.8 8.8 - 10.2 mg/dL 11/30/2022 6:35 AM [facility] BUN 31(H) 8 - 23 mg/dL 11/30/2022 6:35 AM [facility] CREATININE 0.99 0.67 - 1.17 mg/dL 11/30/2022 6:35 AM [facility] GLUCOSE 129(H) 74 - 99 mg/dL 11/30/2022 6:35 AM [facility] GFR >60 >=60 mL/min/1.7 3 sq meter 11/30/2022 6:35 AM [facility] Comment:eGFR calculated with 2020 CKD-EPI equation. Vegetarian diet, extremely high or low muscle mass, and may affect results. Cystatin C with Glomerular Filtration Rate is a suitable alternative for these patients. ANION GAP 5(L) 9 - 20 mmol/L 11/30/2022 6:35 AM [facility] Blood Collection / Unknown 11/30/2022 4:55 AM MOVIE THEATER USHER 11/30/2022 6:21 AM MOVIE THEATER USHER Low Amaya DO CHEMISTRY ORDERABLES Final R esult [facility] CLIA # [id number] [address] [place] [address] documented in this encounter Visit Diagnoses Not on filedocumented in this encounter Additional Health Concerns Infection Onset Date Last Indicated Resolved Time C Diff 11/17/2022 11/17/2022 01/16/2023 1:16 AM CDT documented as of this encounter Care Teams Pickle Water Pump Operator Relationship Specialty Start Date End Date Shant Ballesteros Jr., MD [address] [place] [address] PCP - General Family Practice 01/19/14 documented as of this encounter
--- OUTSIDE RECORDS SUMMARY | 2025-05-27 11:10 | XMS_ITS | Encounter Summary ---
Author Organization [employer] Address [address] [place] [address] Care Team Providers Care Wire Brush Maker Name Role Phone Favian Maldonado MD, Shant Humphreys Primary Care Provider Encounter Details Date Type Department Care Team (Late st Contact Info) Description 12/02/2022 Lab Requisition [facility] Laboratory Services [address] [place] [address] [place] [address] Joelle David MD [address] 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 Gender Identity Not on file Sexual Orientation Not on file documented as of this encounter Plan of Treatment Not on file documented as of this encounter Procedures Procedure Name Priority Date/Time Associated Diagnosis Comments C-REACTIVE PROTEIN Routine 12/02/2022 3: 50 AM SAS DEVELOPER ANALYST documented in this encounter Results * (ABNORMAL) C-REACTIVE PROTEIN (12/02/2022 3:50 AM SAS DEVELOPER ANALYST) CRP 19.3(H) 0.0 - 5.0 mg/L 12/02/2022 5:27 AM SAS DEVELOPER ANALYST [facility] Blood Collection / Unknown 12/02/2022 3:50 AM SAS DEVELOPER ANALYST 12/02/2022 5:13 AM SAS DEVELOPER ANALYST Joelle David MD CHEMISTRY ORDERABLES Final Resu lt [facility] # [id number] [address] [facility] [place] [address] documented in this encounter Visit Diagnoses Not on filedocumented in this encounter Additional Health Concerns Infection Onset Date Last Indicated Resolved Time C Diff 11/17/2022 11/17/2022 01/16/2023 1:16 AM CDT documented as of this encounter Care Teams Wire Brush Maker Relationship Specialty Start Date End Date Shant Ballesteros Jr., MD [address] [place] [address] PCP - General Family Practice 01/19/14 documented as of this encounter
--- OUTSIDE RECORDS SUMMARY | 2025-05-27 11:10 | XMS_ITS | Encounter Summary ---
Author Organization [facility] Address 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 Gender Identity Not on file Sexual Orientation [...] Sarmiento MD HEMATOLOGY ORDERABLES Final Resu lt [facility] CLIA # [id number] [facility] [address] * (ABNORMAL) COMPREHENSIVE METABOLIC PANEL (12/19/2022 4:50 AM CDT) SODIUM 135(L) 136 - 145 mmol/L 12/19/2022 10:48 AM CDT [facility] POTASSIUM 5.3(H) 3.5 - 5.1 mmol/L 12/19/2022 10:48 AM CDT [facility] CHLORIDE 99 98 - 107 mmol/L 12/19/2022 10:48 AM CDT [facility] CO2 25 22 - 29 mmol/L 12/19/2022 10:48 AM CDT [facility] CALCIUM 10.4(H) 8.8 - 10.2 mg/dL 12/19/2022 10:48 AM CDT [facility] BUN 44(H) 8 - 23 mg/dL 12/19/2022 10:48 AM CDT [facility] CREATININE 1.13 0.67 - 1.17 mg/dL 12/19/2022 10:48 AM CDT [facility] GLUCOSE 116(H) 74 - 99 mg/dL 12/19/2022 10:48 AM CDT [facility] TOTAL PROTEIN 7.5 6.4 - 8.3 g/dL 12/19/2022 10:48 AM CDT [facility] ALBUMIN 3.8 3.5 - 5.2 g/dL 12/19/2022 10:48 AM CDT [facility] BILIRUBIN TOTAL <0.2(L) 0.2 - 1.0 mg/dL 12/19/2022 10:48 AM CDT [facility] ALKALINE PHOSPHATASE 111 40 - 129 U/L 12/19/2022 10:48 AM CDT [facility] AST 27 10 - 50 U/L 12/19/2022 10:48 AM CDT [facility] ALT 38 <=50 U/L 12/19/2022 10:48 AM CDT [facility] GFR >60 >=60 mL/min/1. 73 sq meter 12/19/2022 10:48 AM CDT [facility] Comment:eGFR calculated with 2020 CKD-EPI equation. Vegetarian diet, extremely high or low muscle mass, and may affect results. Cystatin C with Glomerular Filtration Rate is a suitable alternative for these patients. ANION GAP 11 9 - 20 mmol/L 12/19/2022 10:48 AM CDT [facility] Blood Collection / Unknown 12/19/2022 4:50 AM CDT 12/19/2022 10:29 AM CDT us Esther Sarmiento MD CHEMISTRY ORDERABLES Final Resul t [id number] [address] [place] [address] documented in this encounter Visit Diagnoses Not on filedocumented in this encounter Additional Health Concerns Infection Onset Date Last Indicated Resolved Time C Diff 11/17/2022 11/17/2022 01/16/2023 1:16 AM CDT documented as of this encounter Care Teams Fire Alarm Inspector Relationship Specialty Start Date End Date Shant Ballesteros Jr., MD [address] [place] [phone] PCP - General Family Practice 01/19/14 documented as of this encounter
--- OUTSIDE RECORDS SUMMARY | 2025-05-27 11:10 | XMS_ITS | Encounter Summary ---
Author Organization [employer] Address 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 Gender Identity Not on file Sexual Orientation Not on file documented as of this encounter Plan of Treatment Not on file documented as of this encounter Procedures Procedure Name Priority Date/Time Associated Diagnosis Comments PHOSPHORUS Routine 12/05/2022 6:30 AM CEMENT TRUCK LOADER MAGNESIUM LEVEL Routine 12/05/2022 6:30 AM CEMENT TRUCK LOADER BASIC METABOLIC PANEL Routine 12/05/2022 6:30 AM CEMENT TRUCK LOADER documented in this encounter Results * MAGNESIUM LEVEL (12/05/2022 6:30 AM CEMENT TRUCK LOADER) MAGNESIUM 2.0 1.6 - 2.4 mg/dL 12/05/2022 8:37 AM CEMENT TRUCK LOADER [facility] Blood Collection / Unknown 12/05/2022 6:30 AM CEMENT TRUCK LOADER 12/05/2022 8:18 AM CEMENT TRUCK LOADER Low Amaya DO CHEMISTRY ORDERABLES Final R esult Performing Organization Address [facility]/ZIP Co de Phone Number [facility] CLIA # [id number] [address] [address] * PHOSPHORUS (12/05/2022 6:30 AM CEMENT TRUCK LOADER) PHOSPHORUS 4.0 2.5 - 4.5 mg/dL 12/05/2022 8:37 AM [facility] Blood Collection / Unknown 12/05/2022 6:30 AM CEMENT TRUCK LOADER 12/05/2022 8:18 AM CEMENT TRUCK LOADER Low Amaya DO CHEMISTRY ORDERABLES Final R esult Performing Organization Address [facility] Co de Phone Number [facility] CLIA # [id number] [address] [address] * (ABNORMAL) BASIC METABOLIC PANEL (12/05/2022 6:30 AM CEMENT TRUCK LOADER) SODIUM 141 136 - 145 mmol/L 12/05/2022 8:37 AM [facility] POTASSIUM 4.4 3.5 - 5.1 mmol/L 12/05/2022 8:37 AM [facility] CHLORIDE 105 98 - 107 mmol/L 12/05/2022 8:37 AM [facility] CO2 32(H) 22 - 29 mmol/L 12/05/2022 8:37 AM [facility] CALCIUM 10.2 8.8 - 10.2 mg/dL 12/05/2022 8:37 AM [facility] BUN 35(H) 8 - 23 mg/dL 12/05/2022 8:37 AM [facility] CREATININE 0.93 0.67 - 1.17 mg/dL 12/05/2022 8:37 AM [facility] GLUCOSE 116(H) 74 - 99 mg/dL 12/05/2022 8:37 AM [facility] GFR >60 >=60 mL/min/1.7 3 sq meter 12/05/2022 8:37 AM [facility] Comment:eGFR calculated with 2020 CKD-EPI equation. Vegetarian diet, extremely high or low muscle mass, and may affect results. Cystatin C with Glomerular Filtration Rate is a suitable alternative for these patients. ANION GAP 4(L) 9 - 20 mmol/L 12/05/2022 8:37 AM [facility] Blood Collection / Unknown 12/05/2022 6:30 AM CEMENT TRUCK LOADER 12/05/2022 8:18 AM CEMENT TRUCK LOADER Low Amaya DO CHEMISTRY ORDERABLES Final R [id number] [address] [place] [address] documented in this encounter Visit Diagnoses Not on filedocumented in this encounter Additional Health Concerns Infection Onset Date Last Indicated Resolved Time C Diff 11/17/2022 11/17/2022 01/16/2023 1:16 AM CDT documented as of this encounter Care Teams Executive Administrative Assistant Relationship Specialty Start Date End Date Shant Ballesteros Jr., MD [address] [place] [address] PCP - General Family Practice 01/19/14 documented as of this encounter
--- OUTSIDE RECORDS SUMMARY | 2025-05-27 11:10 | XMS_ITS | Encounter Summary ---
Author Organization [facility] Address 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 NURSE REVIEWER Gender Identity Not on file Sexual Orientation [...] - 145 mmol/L 12/20/2022 6:20 AM CDT [facility] POTASSIUM 5.4(H) 3.5 - 5.1 mmol/L 12/20/2022 6:20 AM CDT [facility] CHLORIDE 97(L) 98 - 107 mmol/L 12/20/2022 6:20 AM CDT [facility] CO2 26 22 - 29 mmol/L 12/20/2022 6:20 AM T [facility] CALCIUM 10.2 8.8 - 10.2 mg/dL 12/20/2022 6:20 AM T [facility] BUN 42(H) 8 - 23 mg/dL 12/20/2022 6:20 AM T [facility] CREATININE 1.10 0.67 - 1.17 mg/dL 12/20/2022 6:20 AM T [facility] GLUCOSE 120(H) 74 - 99 mg/dL 12/20/2022 6:20 AM T [facility] TOTAL PROTEIN 7.4 6.4 - 8.3 g/dL 12/20/2022 6:20 AM T [facility] ALBUMIN 3.6 3.5 - 5.2 g/dL 12/20/2022 6:20 AM T [facility] BILIRUBIN TOTAL 0.2 0.2 - 1.0 mg/dL 12/20/2022 6:20 AM T [facility] ALKALINE PHOSPHATASE 103 40 - 129 U/L 12/20/2022 6:20 AM CDT [facility] AST 27 10 - 50 U/L 12/20/2022 6:20 AM T [facility] ALT 34 <=50 U/L 12/20/2022 6:20 AM T [facility] GFR >60 >=60 mL/min/1.7 3 sq meter 12/20/2022 6:20 AM T [facility] Comment:eGFR calculated with 2020 CKD-EPI equation. Vegetarian diet, extremely high or low muscle mass, and may affect results. Cystatin C with Glomerular Filtration Rate is a suitable alternative for these patients. ANION GAP 11 9 - 20 mmol/L 12/20/2022 6:20 AM T [facility] Blood Collection / Unknown 12/20/2022 1:20 AM CDT 12/20/2022 6:05 AM CDT us Deborah Aguilar MD CHEMISTRY ORDERABLES Final Resu lt [facility] CLIA # [id number] [address] [place] [address] * (ABNORMAL) CBC WITH DIFFERENTIAL (12/20/2022 1:20 AM CDT) WBC 7.9 4.8 - 10.8 K/uL 12/20/2022 6:09 AM [facility] RBC 3.74(L) 4.60 - 6.20 M/uL 12/20/2022 6:09 AM [facility] HEMOGLOBIN 11.4(L) 14.0 - 18.0 g/dL 12/20/2022 6:09 AM [facility] HEMATOCRIT 35.9(L) 41.0 - 53.0 % 12/20/2022 6:09 AM [facility] MCV 96.0 84.0 - 103.0 fL 12/20/2022 6:09 AM [facility] MCH 30.5 27.0 - 34.0 pg 12/20/2022 6:09 AM [facility] MCHC 31.8 30.0 - 35.0 g/dL 12/20/2022 6:09 AM COUNTS INCLUDE 234 BEDS AT THE [facility] [employer] [facility] RDW 15.5(H) 11.0 - 14.5 % 12/20/2022 6:09 AM COUNTS INCLUDE 234 BEDS AT THE [facility] [employer] [facility] RDW-STDEV 55.0(H) 37.0 - 54.0 fL 12/20/2022 6:09 AM COUNTS INCLUDE 234 BEDS AT THE [facility] [employer] [facility] PLATELETS 279 140 - 440 K/uL 12/20/2022 6:09 AM COUNTS INCLUDE 234 BEDS AT THE [facility] [employer] [facility] MPV 10.5 8.9 - 12.8 fL 12/20/2022 6:09 AM COUNTS INCLUDE 234 BEDS AT THE [facility] [employer] [facility] NEUTROPHILS 54 42 - 75 % 12/20/2022 6:09 AM COUNTS INCLUDE 234 BEDS AT THE [facility] [employer] [facility] LYMPHOCYTES 22(L) 24 - 44 % 12/20/2022 6:09 AM COUNTS INCLUDE 234 BEDS AT THE [facility] [employer] [facility] MONOCYTES 13(H) 2 - 10 % 12/20/2022 6:09 AM COUNTS INCLUDE 234 BEDS AT THE [facility] [employer] [facility] EOSINOPHILS 10(H) 0 - 7 % 12/20/2022 6:09 AM COUNTS INCLUDE 234 BEDS AT THE [facility] [employer] [facility] BASOPHILS 1 0 - 1 % 12/20/2022 6:09 AM [facility] IMMATURE GRANULOCYTES 1 0 - 2 % 12/20/2022 6:09 AM COUNTS INCLUDE 234 BEDS AT THE [facility] [employer] [facility] NEUTROPHIL ABSOLUTE 4.27 2.00 - 8.00 K/uL 12/20/2022 6:09 AM [facility] LYMPHOCYTE ABSOLUTE 1.72 1.20 - 4.00 K/uL 12/20/2022 6:09 AM COUNTS INCLUDE 234 BEDS AT THE [facility] [employer] [facility] MONOCYTE ABSOLUTE 0.99(H) 0.10 - 0.60 K/uL 12/20/2022 6:09 AM [facility] EOSINOPHIL ABSOLUTE 0.76(H) 0.00 - 0.70 K/uL 12/20/2022 6:09 AM COUNTS INCLUDE 234 BEDS AT THE [facility] [employer] [facility] BASOPHILS ABSOLUTE 0.06 0.00 - 0.20 K/uL 12/20/2022 6:09 AM COUNTS INCLUDE 234 BEDS AT THE [facility] [employer] [facility] IMMATURE GRANULOCYTES ABSOLUTE 0.05 0.00 - 0.10 K/uL 12/20/2022 6:09 AM CDT [facility] [employer] [facility] Blood Collection / Unknown 12/20/2022 1:20 AM CDT 12/20/2022 6:05 AM CDT us Deborah Aguilar MD HEMATOLOGY ORDERABLES Final Res ult [facility] [employer] [facility] CLIA # [id number] [facility] [address] documented in this encounter Visit Diagnoses Not on filedocumented in this encounter Additional Health Concerns Infection Onset Date Last Indicated Resolved Time C Diff 11/17/2022 11/17/2022 01/16/2023 1:16 AM CDT documented as of this encounter Care Teams Bed Setter Relationship Specialty Start Date End Date Shant Ballesteros Jr., MD [address] [place] [address] PCP - General Family Practice 01/19/14 documented as of this encounter
--- OUTSIDE RECORDS SUMMARY | 2025-05-27 11:10 | XMS_ITS | Encounter Summary ---
Author Organization [facility] Address 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 Gender Identity Not on file Sexual Orientation Not on file documented as of this encounter Plan of Treatment Not on file documented as of this encounter Procedures Procedure Name Priority Date/Time Associated Diagnosis Comments CBC WITH DIFFERENTIAL Routine 12/06/2022 4:50 PM PEACE OFFICER documented in this encounter Results * (ABNORMAL) CBC WITH DIFFERENTIAL (12/06/2022 4:50 PM PEACE OFFICER) WBC 7.0 4.8 - 10.8 K/uL 12/06/2022 6:27 PM PEACE OFFICER [facility] RBC 3.23(L) 4.60 - 6.20 M/uL 12/06/2022 6:27 PM PEACE OFFICER [facility] HEMOGLOBIN 9.6(L) 14.0 - 18.0 g/dL 12/06/2022 6:[address] [facility] HEMATOCRIT 31.3(L) 41.0 - 53.0 % 12/06/2022 6:[address] [facility] MCV 96.9 84.0 - 103.0 fL 12/06/2022 6:[address] [facility] MCH 29.7 27.0 - 34.0 pg 12/06/2022 6:[address] [facility] MCHC 30.7 30.0 - 35.0 g/dL 12/06/2022 6:[address] [facility] RDW 16.9(H) 11.0 - 14.5 % 12/06/2022 6:[address] [facility] RDW-STDEV 60.0(H) 37.0 - 54.0 fL 12/06/2022 6:[address] [facility] PLATELETS 247 140 - 440 K/uL 12/06/2022 6:[address] [facility] MPV 10.5 8.9 - 12.8 fL 12/06/2022 6:[address] [facility] NEUTROPHILS 57 42 - 75 % 12/06/2022 6:[address] [facility] LYMPHOCYTES 20(L) 24 - 44 % 12/06/2022 6:[address] [facility] MONOCYTES 11(H) 2 - 10 % 12/06/2022 6:[address] [facility] EOSINOPHILS 11(H) 0 - 7 % 12/06/2022 6:[address] [facility] BASOPHILS 1 0 - 1 % 12/06/2022 6:[address] [facility] IMMATURE GRANULOCYTES 0 0 - 2 % 12/06/2022 6:[address] [facility] NEUTROPHIL ABSOLUTE 3.99 2.00 - 8.00 K/uL 12/06/2022 6:[address] [facility] LYMPHOCYTE ABSOLUTE 1.43 1.20 - 4.00 K/uL 12/06/2022 6:[address] [facility] MONOCYTE ABSOLUTE 0.77(H) 0.10 - 0.60 K/uL 12/06/2022 6:27 PM PEACE OFFICER [facility] EOSINOPHIL ABSOLUTE 0.76(H) 0.00 - 0.70 K/uL 12/06/2022 6:27 PM PEACE OFFICER [facility] BASOPHILS ABSOLUTE 0.04 0.00 - 0.20 K/uL 12/06/2022 6:27 PM PEACE OFFICER [facility] IMMATURE GRANULOCYTES ABSOLUTE 0.02 0.00 - 0.10 K/uL 12/06/2022 6:27 PM PEACE OFFICER [facility] Blood Collection / Unknown 12/06/2022 4:50 PM PEACE OFFICER 12/06/2022 6:16 PM PEACE OFFICER us Deborah Aguilar MD HEMATOLOGY ORDERABLES Final Res ult [facility] CLIA # [id number] [facility] [address] documented in this encounter Visit Diagnoses Not on filedocumented in this encounter Additional Health Concerns Infection Onset Date Last Indicated Resolved Time C Diff 11/17/2022 11/17/2022 01/16/2023 1:16 AM CDT documented as of this encounter Care Teams Naphthol Soaping Machine Operator Relationship Specialty Start Date End Date Shant Ballesteros Jr., MD [address] [place] [address] PCP - General Family Practice 01/19/14 documented as of this encounter
--- OUTSIDE RECORDS SUMMARY | 2025-05-27 11:10 | XMS_ITS | Encounter Summary ---
Author Organization [facility] Address [address] [place] [address] Care Team Providers Care Meter Readers Supervisor Name Role Phone Favian Maldonado MD, Shant Humphreys Primary Care Provider Encounter Details Date Type Department Care Team (Late st Contact Info) Description 12/05/2022 Lab Requisition [facility] Laboratory Services [address] [place] [address] Low Amaya, DO [address] [place] [phone] Social History Tobacco Use Types Packs/Day Years Used Date Smoking Tobacco: Never Assessed Sex and Gender Information Value Date Recorded Sex Assigned at Not on file Legal Sex Male 9:45 AM COLLECT ON DELIVERY CLERK Gender Identity Not on file Sexual Orientation Not on file documented as of this encounter Plan of Treatment Not on file documented as of this encounter Procedures Procedure Name Priority Date/Time Associated Diagnosis Comments PHOSPHORUS Routine 12/05/2022 3:30 AM COLLECT ON DELIVERY CLERK MAGNESIUM LEVEL Routine 12/05/2022 3:30 AM COLLECT ON DELIVERY CLERK documented in this encounter Results * MAGNESIUM LEVEL (12/05/2022 3:30 AM COLLECT ON DELIVERY CLERK) MAGNESIUM 12/05/2022 7:00 AM COLLECT ON DELIVERY CLERK [facility] SERVICES [facility] Comment: Contaminated specimen, called to Humble Garcia This is a corrected result. Previous result was 1.7 mg/dL on 12/05/2022 at 0553 COLLECT ON DELIVERY CLERK Blood Collection / Unknown 12/05/2022 3:30 AM COLLECT ON DELIVERY CLERK 12/05/2022 5:21 AM COLLECT ON DELIVERY CLERK Narrative [facility] - 12/05/2022 7:00 AM COLLECT ON DELIVERY CLERK To be credited Contaminated specimen Low Finley Monique DO CHEMISTRY ORDERABLES Edited Result - Final Performing Organization Address City/[facility]/ZIP Co de Phone Number [facility] CLIA # [id number] [address] [facility] [place] [address] * PHOSPHORUS (12/05/2022 3:30 AM COLLECT ON DELIVERY CLERK) PHOSPHORUS 12/05/2022 7:02 AM COLLECT ON DELIVERY CLERK [facility] Comment: Contaminated specimen. To be credited, called to Humble Garcia This is a corrected result. Previous result was 4.6 mg/dL on 12/05/2022 at 0553 [facility] Blood Collection / Unknown 12/05/2022 3:30 AM COLLECT ON DELIVERY CLERK 12/05/2022 5:21 AM COLLECT ON DELIVERY CLERK Low Finley Monique DO CHEMISTRY ORDERABLES Edited Result - Final Performing Organization Address [facility] Co de Phone Number [facility] CLIA # [id number] [address] [place] [address] documented in this encounter Visit Diagnoses Not on filedocumented in this encounter Additional Health Concerns Infection Onset Date Last Indicated Resolved Time C Diff 11/17/2022 11/17/2022 01/16/2023 1:16 AM CDT documented as of this encounter Care Teams Meter Readers Supervisor Relationship Specialty Start Date End Date Shant Ballesteros Jr., MD [address] [place] [address] PCP - General Family Practice 01/19/14 documented as of this encounter
--- OUTSIDE RECORDS SUMMARY | 2025-05-27 11:11 | XMS_ITS | Encounter Summary ---
Author Organization [facility] Address [address] [place] [address] Care Team Providers Care Tower Helper Name Role Phone Favian Maldonado MD, Shant Humphreys Primary Care Provider Encounter Details Date Type Department Care Team (Late st Contact Info) Description 11/24/[address] 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 Gender Identity Not on file Sexual Orientation Not on file documented as of this encounter Plan of Treatment Not on file documented as of this encounter Procedures Procedure Name Priority Date/Time Associated Diagnosis Comments URINALYSIS W/REFLEX MICROSCOPIC Stat 11/24/2022 9:45 PM [employer] SALES CONSULTANT documented in this encounter Results * (ABNORMAL) URINALYSIS WITH REFLEX MICROSCOPIC (11/24/2022 9:45 PM BMW SALES CONSULTANT) COLOR UA Yellow Pale to Dark Yellow 11/24/2022 11:07 PM BMW SALES CONSULTANT [facility] CLARITY UA Clear Clear 11/24/2022 11:07 PM [employer] SALES CONSULTANT [facility] SPECIFIC GRAVITY UA 1.012 1.003 - 1.035 11/24/2022 11:07 PM [facility] PH UA 5.0 5.0 - 8.0 11/24/2022 11:07 PM [facility] LEUKOCYTE ESTERASE UA Negative Negative 11/24/2022 11:07 PM [facility] NITRITE UA Negative Negative 11/24/2022 11:07 PM [facility] PROTEIN UA Negative Negative 11/24/2022 11:07 PM [facility] GLUCOSE UA Negative Negative 11/24/2022 11:07 PM [facility] KETONES UA Negative Negative 11/24/2022 11:07 PM [facility] UROBILINOGEN UA <2.0 <2.0 mg/dL 11:07 PM [facility] BILIRUBIN UA Negative Negative 11/24/2022 11:07 PM [facility] BLOOD UA 1+(A) Negative 11/24/2022 11:07 PM [facility] WBC UA 0-2 0 - 2 /hpf 11/24/2022 11:07 PM [facility] RBC UA 0-2 0 - 2 /hpf 11/24/2022 11:07 PM [facility] BACTERIA UA Negative Negative /hpf 11/24/2022 11:07 PM [facility] EPITHELIAL CELLS, URINE 0-5 0 - 5 /hpf 11/24/2022 11:07 PM [facility] Urine URINE SPECIMEN OBTAINED BY CLEAN CATCH PROCEDURE / Unknown Collection / Unknown 11/24/2022 9:45 PM [employer] SALES CONSULTANT 11/24/2022 10:55 PM [employer] SALES CONSULTANT us Andre Mary WHALE TRAINER URINE ORDERABLES Final R esult [facility] CLIA # [id number] [address] [address] documented in this encounter Visit Diagnoses Not on filedocumented in this encounter Additional Health Concerns Infection Onset Date Last Indicated Resolved Time C Diff 11/17/2022 11/17/2022 01/16/2023 1:16 AM CDT documented as of this encounter Care Teams Tower Helper Relationship Specialty Start Date End Date Shant Ballesteros Jr., MD [address] [place] [address] PCP - General Family Practice 01/19/14 documented as of this encounter
--- OUTSIDE RECORDS SUMMARY | 2025-05-27 11:11 | XMS_ITS | Encounter Summary ---
Author Organization [facility] Address [address] [place] [address] Care Team Providers Care Power Plant Operator Name Role Phone Favian Maldonado MD, Shant Humphreys Primary Care Provider Encounter Details Date Type Department Care Team (Late st Contact Info) Description 11/19/2022 Lab Requisition [facility] Laboratory Services [address] [place] [address] Low Amaya, DO [address] [place] [phone] Social History Tobacco Use Types Packs/Day Years Used Date Smoking Tobacco: Never Assessed Sex and Gender Information Value Date Recorded Sex Assigned at Not on file Legal Sex Male 9:45 AM ACCOUNTING DIRECTOR Gender Identity Not on file Sexual Orientation Not on file documented as of this encounter Plan of Treatment Not on file documented as of this encounter Procedures Procedure Name Priority Date/Time Associated Diagnosis Comments TRIGLYCERIDE Routine 11/19/2022 2:55 AM ACCOUNTING DIRECTOR PHOSPHORUS Routine 11/19/2022 2:55 AM ACCOUNTING DIRECTOR MAGNESIUM LEVEL Routine 11/19/2022 2:55 AM ACCOUNTING DIRECTOR COMPREHENSIVE METABOLIC PANEL Routine 11/19/2022 2:55 AM ACCOUNTING DIRECTOR documented in this encounter Results * TRIGLYCERIDE (11/19/2022 2:55 AM ACCOUNTING DIRECTOR) TRIGLYCERIDE 126 <150 mg/dL 11/19/2022 6:43 AM ACCOUNTING DIRECTOR [facility] Blood Collection / Unknown 11/19/2022 2:55 AM ACCOUNTING DIRECTOR 11/19/2022 6:22 AM ACCOUNTING DIRECTOR Narrative [facility] - 11/19/2022 6:43 AM ACCOUNTING DIRECTOR TRIGLYCERIDES mg/dL Normal < 150 Borderline High 150 - 199 High 200 - 499 Very High >= 500 Based on AHA/NCEP Guidelines. Low Amaya DO CHEMISTRY ORDERABLES Final R esult Performing Organization Address [facility] Co de Phone Number [facility] CLIA # [id number] [address] [facility] [place] [address] * PHOSPHORUS (11/19/2022 2:55 AM ACCOUNTING DIRECTOR) PHOSPHORUS 4.4 2.5 - 4.5 mg/dL 11/19/2022 6:43 AM ACCOUNTING DIRECTOR [facility] Blood Collection / Unknown 11/19/2022 2:55 AM ACCOUNTING DIRECTOR 11/19/2022 6:22 AM ACCOUNTING DIRECTOR Low Amaya DO CHEMISTRY ORDERABLES Final R esult Performing Organization Address [facility] Co de Phone Number [facility] CLIA # [id number] [address] [address] * MAGNESIUM LEVEL (11/19/2022 2:55 AM ACCOUNTING DIRECTOR) MAGNESIUM 1.9 1.6 - 2.4 mg/dL 11/19/2022 6:43 AM ACCOUNTING DIRECTOR [facility] Blood Collection / Unknown 11/19/2022 2:55 AM ACCOUNTING DIRECTOR 11/19/2022 6:22 AM ACCOUNTING DIRECTOR Low Amaya DO CHEMISTRY ORDERABLES Final R esult Performing Organization Address [facility] Co de Phone Number [facility] CLIA # [id number] [address] [address] [place] [address] * (ABNORMAL) COMPREHENSIVE METABOLIC PANEL (11/19/2022 2:55 AM ACCOUNTING DIRECTOR) SODIUM 144 136 - 145 mmol/L 11/19/2022 6:43 AM [facility] POTASSIUM 3.5 3.5 - 5.1 mmol/L 11/19/2022 6:43 AM [facility] CHLORIDE 105 98 - 107 mmol/L 11/19/2022 6:43 AM [facility] CO2 32(H) 22 - 29 mmol/L 11/19/2022 6:43 AM [facility] CALCIUM 9.1 8.8 - 10.2 mg/dL 11/19/2022 6:43 AM [facility] BUN 22 8 - 23 mg/dL 11/19/2022 6:43 AM [facility] CREATININE 0.99 0.67 - 1.17 mg/dL 11/19/2022 6:43 AM [facility] GLUCOSE 169(H) 74 - 99 mg/dL 11/19/2022 6:43 AM [facility] TOTAL PROTEIN 6.6 6.4 - 8.3 g/dL 11/19/2022 6:43 AM [facility] ALBUMIN 3.0(L) 3.5 - 5.2 g/dL 11/19/2022 6:43 AM [facility] BILIRUBIN TOTAL 0.2 0.2 - 1.0 mg/dL 11/19/2022 6:43 AM [facility] ALKALINE PHOSPHATASE 64 40 - 129 U/L 11/19/2022 6:43 AM [facility] AST 13 10 - 50 U/L 11/19/2022 6:43 AM [facility] ALT 8 <=50 U/L 11/19/2022 6:43 AM [facility] GFR >60 >=60 mL/min/1.7 3 sq meter 11/19/2022 6:43 AM ACCOUNTING DIRECTOR [facility] Comment:eGFR calculated with 2020 CKD-EPI equation. Vegetarian diet, extremely high or low muscle mass, and may affect results. Cystatin C with Glomerular Filtration Rate is a suitable alternative for these patients. ANION GAP 7(L) 9 - 20 mmol/L 11/19/2022 6:43 AM ACCOUNTING DIRECTOR [facility] Blood Collection / Unknown 11/19/2022 2:55 AM ACCOUNTING DIRECTOR 11/19/2022 6:22 AM ACCOUNTING DIRECTOR us Low Amaya DO CHEMISTRY ORDERABLES Final R esult [facility] CLIA # [id number] [address] [address] documented in this encounter Visit Diagnoses Not on filedocumented in this encounter Additional Health Concerns Infection Onset Date Last Indicated Resolved Time C Diff 11/17/2022 11/17/2022 01/16/2023 1:16 AM CDT documented as of this encounter Care Teams Power Plant Operator Relationship Specialty Start Date End Date Shant Ballesteros Jr., MD [address] [place] [address] PCP - General Family Practice 01/19/14 documented as of this encounter
--- OUTSIDE RECORDS SUMMARY | 2025-05-27 11:11 | XMS_ITS | Clinical Summary ---
Author Organization [facility] Address [address] [place] [address] Phone Care Team Providers Care Software Development Coordinator Name Role Phone Favian Maldonado MD, [...] (1 - 1-dose 75+ series) 2030 Insurance [employer] [id number] HMO Care Teams Software Development Coordinator Relationship Specialty Start Date End Date Shant Ballesteros Jr., MD [address] [place] [address] PCP - General Family Practice 01/19/14
--- OUTSIDE RECORDS SUMMARY | 2025-05-27 11:11 | XMS_ITS | Encounter Summary ---
Author Organization [employer] Address [address] [place] [address] Care Team Providers Care Format Proofreader Name Role Phone Favian Maldonado MD, Shant Humphreys Primary Care Provider Encounter Details Date Type Department Care Team (Late st Contact Info) Description 11/26/2022 Lab Requisition [facility] Laboratory Services [address] [place] [address] [place] [address] Low Amaya, DO [address] [place] [address] Social History Tobacco Use Types Packs/Day Years Used Date Smoking Tobacco: Never Assessed Sex and Gender Information Value Date Recorded Sex Assigned at Not on file Legal Sex Male 9:45 AM FOWL BLOOD TESTER Gender Identity Not on file Sexual Orientation Not on file documented as of this encounter Plan of Treatment Not on file documented as of this encounter Procedures Procedure Name Priority Date/Time Associated Diagnosis Comments CBC WITH DIFFERENTIAL Routine 11/26/2022 1:15 AM FOWL BLOOD TESTER TRIGLYCERIDE Routine 11/26/2022 1:15 AM FOWL BLOOD TESTER PHOSPHORUS Routine 11/26/2022 1:15 AM FOWL BLOOD TESTER MAGNESIUM LEVEL Routine 11/26/2022 1:15 AM FOWL BLOOD TESTER COMPREHENSIVE METABOLIC PANEL Routine 11/26/2022 1:15 AM FOWL BLOOD TESTER documented in this encounter Results * (ABNORMAL) TRIGLYCERIDE (11/26/2022 1:15 AM FOWL BLOOD TESTER) TRIGLYCERIDE 172(H) <150 mg/dL 11/26/2022 6:58 AM [facility] Blood Collection / Unknown 11/26/2022 1:15 AM FOWL BLOOD TESTER 11/26/2022 6:01 AM FOWL BLOOD TESTER Narrative [facility] - 11/26/2022 6:58 AM FOWL BLOOD TESTER TRIGLYCERIDES mg/dL Normal < 150 Borderline High 150 - 199 High 200 - 499 Very High >= 500 Based on AHA/NCEP Guidelines. Low Amaya DO CHEMISTRY ORDERABLES Final R [facility] Performing Organization Address City/[facility]/ZIP Co de Phone Number [facility] CLIA # [id number] [address] [id number] * PHOSPHORUS (11/26/2022 1:15 AM FOWL BLOOD TESTER) PHOSPHORUS 3.2 2.5 - 4.5 mg/dL 11/26/2022 6:58 AM [facility] Blood Collection / Unknown 11/26/2022 1:15 AM FOWL BLOOD TESTER 11/26/2022 6:01 AM FOWL BLOOD TESTER Low Amaya DO CHEMISTRY ORDERABLES Final R esult [facility] CLIA # [id number] [id number] [place], [place] [address] * MAGNESIUM LEVEL (11/26/2022 1:15 AM FOWL BLOOD TESTER) MAGNESIUM 2.0 1.6 - 2.4 mg/dL 11/26/2022 6:58 AM FOWL BLOOD TESTER [facility] Blood Collection / Unknown 11/26/2022 1:15 AM FOWL BLOOD TESTER 11/26/2022 6:01 AM FOWL BLOOD TESTER us Low Amaya DO CHEMISTRY ORDERABLES Final R esult [facility] CLIA # [id number] [address] [facility] [place] [address] * (ABNORMAL) CBC WITH DIFFERENTIAL (11/26/2022 1:15 AM FOWL BLOOD TESTER) [facility] WBC 6.1 4.8 - 10.8 K/uL 11/26/2022 6:14 AM [facility] RBC 2.61(L) 4.60 - 6.20 M/uL 11/26/2022 6:14 AM [facility] HEMOGLOBIN 7.8(L) 14.0 - 18.0 g/dL 11/26/2022 6:14 AM [facility] HEMATOCRIT 26.5(L) 41.0 - 53.0 % 11/26/2022 6:14 AM [facility] MCV 101.5 84.0 - 103.0 fL 11/26/2022 6:14 AM [facility] MCH 29.9 27.0 - 34.0 pg 11/26/2022 6:14 AM [facility] MCHC 29.4(L) 30.0 - 35.0 g/dL 11/26/2022 6:14 AM [facility] RDW 18.2(H) 11.0 - 14.5 % 11/26/2022 6:14 AM [facility] RDW-STDEV 66.1(H) 37.0 - 54.0 fL 11/26/2022 6:14 AM [facility] PLATELETS 222 140 - 440 K/uL 11/26/2022 6:14 AM [facility] MPV 10.6 8.9 - 12.8 fL 11/26/2022 6:14 AM [facility] NEUTROPHILS 63 42 - 75 % 11/26/2022 6:14 AM [facility] LYMPHOCYTES 18(L) 24 - 44 % 11/26/2022 6:14 AM [facility] MONOCYTES 13(H) 2 - 10 % 11/26/2022 6:14 AM [facility] EOSINOPHILS 5 0 - 7 % 11/26/2022 6:14 AM [facility] BASOPHILS 1 0 - 1 % 11/26/2022 6:14 AM [facility] IMMATURE GRANULOCYTES 1 0 - 2 % 11/26/2022 6:14 AM [facility] NEUTROPHIL ABSOLUTE 3.84 2.00 - 8.00 K/uL 11/26/2022 6:14 AM [facility] LYMPHOCYTE ABSOLUTE 1.09(L) 1.20 - 4.00 K/uL 11/26/2022 6:14 AM [facility] MONOCYTE ABSOLUTE 0.79(H) 0.10 - 0.60 K/uL 11/26/2022 6:14 AM [facility] EOSINOPHIL ABSOLUTE 0.32 0.00 - 0.70 K/uL 11/26/2022 6:14 AM [facility] BASOPHILS ABSOLUTE 0.04 0.00 - 0.20 K/uL 11/26/2022 6:14 AM [facility] IMMATURE GRANULOCYTES ABSOLUTE 0.03 0.00 - 0.10 K/uL 11/26/2022 6:14 AM [facility] Blood Collection / Unknown 11/26/2022 1:15 AM FOWL BLOOD TESTER 11/26/2022 6:01 AM [facility] us Low Amaya DO HEMATOLOGY ORDERABLES Final Result [facility] CLIA # [id number] [facility] [address] [place] [address] * (ABNORMAL) COMPREHENSIVE METABOLIC PANEL (11/26/2022 1:15 AM FOWL BLOOD TESTER) [facility] SODIUM 140 136 - 145 mmol/L 11/26/2022 6:58 AM [facility] POTASSIUM 3.9 3.5 - 5.1 mmol/L 11/26/2022 6:58 AM [facility] CHLORIDE 103 98 - 107 mmol/L 11/26/2022 6:58 AM [facility] CO2 30(H) 22 - 29 mmol/L 11/26/2022 6:58 AM [facility] CALCIUM 9.3 8.8 - 10.2 mg/dL 11/26/2022 6:58 AM [facility] BUN 34(H) 8 - 23 mg/dL 11/26/2022 6:58 AM [facility] CREATININE 1.08 0.67 - 1.17 mg/dL 11/26/2022 6:58 AM [facility] GLUCOSE 129(H) 74 - 99 mg/dL 11/26/2022 6:58 AM [facility] TOTAL PROTEIN 6.4 6.4 - 8.3 g/dL 11/26/2022 6:58 AM [facility] ALBUMIN 2.9(L) 3.5 - 5.2 g/dL 11/26/2022 6:58 AM [facility] BILIRUBIN TOTAL 0.3 0.2 - 1.0 mg/dL 11/26/2022 6:58 AM [facility] ALKALINE PHOSPHATASE 86 40 - 129 U/L 11/26/2022 6:58 AM [facility] AST 14 10 - 50 U/L 11/26/2022 6:58 AM [facility] ALT 10 <=50 U/L 11/26/2022 6:58 AM [facility] GFR >60 >=60 mL/min/1.7 3 sq meter 11/26/2022 6:58 AM [facility] Comment:eGFR calculated with 2020 CKD-EPI equation. Vegetarian diet, extremely high or low muscle mass, and may affect results. Cystatin C with Glomerular Filtration Rate is a suitable alternative for these patients. ANION GAP 7(L) 9 - 20 mmol/L 11/26/2022 6:58 AM FOWL BLOOD TESTER [facility] Blood Collection / Unknown 11/26/2022 1:15 AM FOWL BLOOD TESTER 11/26/2022 6:01 AM FOWL BLOOD TESTER Low Amaya DO CHEMISTRY ORDERABLES Final R esult [facility] CLIA # [id number] [facility] [address] documented in this encounter Visit Diagnoses Not on filedocumented in this encounter Additional Health Concerns Infection Onset Date Last Indicated Resolved Time C Diff 11/17/2022 11/17/2022 01/16/2023 1:16 AM CDT documented as of this encounter Care Teams Format Proofreader Relationship Specialty Start Date End Date Shant Ballesteros Jr., MD [address] [place] [address] PCP - General Family Practice 01/19/14 documented as of this encounter
--- OUTSIDE RECORDS SUMMARY | 2025-05-27 11:11 | XMS_ITS | Encounter Summary ---
Author Organization [employer] [facility] Address [address] [place] [address] Care Team Providers Care Controller Instructor Name Role Phone Favian Maldonado MD, Shant Humphreys Primary Care Provider Encounter Details Date Type Department Care Team (Late st Contact Info) Description 11/22/2022 Lab Requisition [facility] Laboratory Services [address] [place] [address] [place] [address] Low Amaya, DO [address] [place] [address] Social History Tobacco Use Types Packs/Day Years Used Date Smoking Tobacco: Never Assessed Sex and Gender Information Value Date Recorded Sex Assigned at Not on file Legal Sex Male 9:45 AM MANAGING DIRECTOR Gender Identity Not on file Sexual Orientation Not on file documented as of this encounter Plan of Treatment Not on file documented as of this encounter Procedures Procedure Name Priority Date/Time Associated Diagnosis Comments CBC WITH DIFFERENTIAL Routine 11/22/2022 4:14 AM MANAGING DIRECTOR documented in this encounter Results * (ABNORMAL) CBC WITH DIFFERENTIAL (11/22/2022 4:14 AM MANAGING DIRECTOR) WBC 6.6 4.8 - 10.8 K/uL 11/22/2022 7:49 AM MANAGING DIRECTOR [facility] RBC 2.65(L) 4.60 - 6.20 M/uL 11/22/2022 7:49 AM MANAGING DIRECTOR [facility] HEMOGLOBIN 7.9(L) 14.0 - 18.0 g/dL 11/22/2022 7:49 AM [facility] HEMATOCRIT 26.8(L) 41.0 - 53.0 % 11/22/2022 7:49 AM [facility] MCV 101.1 84.0 - 103.0 fL 11/22/2022 7:49 AM [facility] MCH 29.8 27.0 - 34.0 pg 11/22/2022 7:49 AM [facility] MCHC 29.5(L) 30.0 - 35.0 g/dL 11/22/2022 7:49 AM [facility] RDW 18.6(H) 11.0 - 14.5 % 11/22/2022 7:49 AM [facility] RDW-STDEV 66.0(H) 37.0 - 54.0 fL 11/22/2022 7:49 AM [facility] PLATELETS 298 140 - 440 K/uL 11/22/2022 7:49 AM [facility] MPV 9.8 8.9 - 12.8 fL 11/22/2022 7:49 AM [facility] NEUTROPHILS 67 42 - 75 % 11/22/2022 7:49 AM [facility] LYMPHOCYTES 14(L) 24 - 44 % 11/22/2022 7:49 AM [facility] MONOCYTES 11(H) 2 - 10 % 11/22/2022 7:49 AM [facility] [employer] [facility] EOSINOPHILS 6 0 - 7 % 11/22/2022 7:49 AM [facility] [employer] [facility] BASOPHILS 1 0 - 1 % 11/22/2022 7:49 AM [facility] IMMATURE GRANULOCYTES 1 0 - 2 % 11/22/2022 7:49 AM [facility] NEUTROPHIL ABSOLUTE 4.40 2.00 - 8.00 K/uL 11/22/2022 7:49 AM [facility] LYMPHOCYTE ABSOLUTE 0.92(L) 1.20 - 4.00 K/uL 11/22/2022 7:49 AM [facility] MONOCYTE ABSOLUTE 0.74(H) 0.10 - 0.60 K/uL 11/22/2022 7:49 AM MANAGING DIRECTOR [facility] EOSINOPHIL ABSOLUTE 0.40 0.00 - 0.70 K/uL 11/22/2022 7:49 AM MANAGING DIRECTOR [facility] BASOPHILS ABSOLUTE 0.03 0.00 - 0.20 K/uL 11/22/2022 7:49 AM MANAGING DIRECTOR [facility] IMMATURE GRANULOCYTES ABSOLUTE 0.07 0.00 - 0.10 K/uL 11/22/2022 7:49 AM MANAGING DIRECTOR [facility] Blood Collection / Unknown 11/22/2022 4:14 AM MANAGING DIRECTOR 11/22/2022 7:43 AM MANAGING DIRECTOR Low Amaya DO HEMATOLOGY ORDERABLES Final Result Performing Organization Address City/State/[facility] Co de Phone Number [facility] CLIA # [id number] [facility] [address] documented in this encounter Visit Diagnoses Not on filedocumented in this encounter Additional Health Concerns Infection Onset Date Last Indicated Resolved Time C Diff 11/17/2022 11/17/2022 01/16/2023 1:1 6 AM CDT documented as of this encounter Care Teams Controller Instructor Relationship Specialty Start Date End Date Shant Ballesteros Jr., MD [address] [place] [address] PCP - General Family Practice 01/19/14 documented as of this encounter
--- OUTSIDE RECORDS SUMMARY | 2025-05-27 11:11 | XMS_ITS | Encounter Summary ---
Author Organization [employer] Address [address] [place] [address] Care Team Providers Care Protection Mgr Name Role Phone Favian Maldonado MD, Shant Humphreys Primary Care Provider Encounter Details Date Type Department Care Team (Late st Contact Info) Description 11/25/[address] [facility] Laboratory Services [address] [place] [address] [place] [address] Andre Mary, MADHU [address] [facility] [address] [place] [address] Social History Tobacco Use Types Packs/Day Years Used Date Smoking Tobacco: Never Assessed Sex and Gender Information Value Date Recorded Sex Assigned at Not on file Legal Sex Male 9:45 AM ACCOUNT REPRESENTATIVE Gender Identity Not on file Sexual Orientation Not on file documented as of this encounter Plan of Treatment Not on file documented as of this encounter Procedures Procedure Name Priority Date/Time Associated Diagnosis Comments RESPIRATORY PATHOGEN PCR PANEL Routine 11/25/2022 9:47 AM ACCOUNT REPRESENTATIVE documented in this encounter Results * RESPIRATORY PATHOGEN PCR PANEL (11/25/2022 9:47 AM ACCOUNT REPRESENTATIVE) Respiratory Pathogen PCR Panel NOT DETECTED No respiratory pathogen nucleic acids detected. 11/25/2022 11:29 AM ACCOUNT REPRESENTATIVE [facility] [employer] [facility] COVID-19 PCR NOT DETECTED Not Detected 11/25/2022 11:29 AM ACCOUNT REPRESENTATIVE [facility] Upper Respiratory ENTIRE NASOPHARYNX / Unknown Collection / Unknown 11/25/2022 9:47 AM ACCOUNT REPRESENTATIVE 11/25/2022 10:36 AM ACCOUNT REPRESENTATIVE Narrative [facility] - 11/25/2022 11:29 AM ACCOUNT REPRESENTATIVE The Film [employer] Respiratory Panel (RP2.1) is [...] parapertussis Chlamydophila pneumoniae Mycoplasma pneumoniae Andre Mary ILLUMINATING ENGINEER MICROBIOLOGY - GENERAL O RDERABLES Final Result [id number] [address] [place] [address] documented in this encounter Visit Diagnoses Not on filedocumented in this encounter Additional Health Concerns Infection Onset Date Last Indicated Resolved Time C Diff 11/17/2022 11/17/2022 01/16/2023 1:16 AM CDT documented as of this encounter Care Teams Protection Mgr Relationship Specialty Start Date End Date Shant Ballesteros Jr., MD [address] [place] [address] PCP - General Family Practice 01/19/14 documented as of this encounter
--- OUTSIDE RECORDS SUMMARY | 2025-05-27 11:11 | XMS_ITS | Encounter Summary ---
Author Organization [employer] [facility] Address [address] [place] [address] Care Team Providers Care Assistant Housekeeping Manager Name Role Phone Favian Maldonado MD, Shant Humphreys Primary Care Provider Encounter Details Date Type Department Care Team (Late st Contact Info) Description 11/26/2022 Lab Requisition [facility] Laboratory Services [address] [place] [address] Low Amaya, DO [address] [place] [address] Social History Tobacco Use Types Packs/Day Years Used Date Smoking Tobacco: Never Assessed Sex and Gender Information Value Date Recorded Sex Assigned at Not on file Legal Sex Male 9:45 AM MONOGRAM TECHNICIAN Gender Identity Not on file Sexual Orientation Not on file documented as of this encounter Plan of Treatment Not on file documented as of this encounter Procedures Procedure Name Priority Date/Time Associated Diagnosis Comments CALCIUM IONIZED Routine 11/26/2022 6:20 AM MONOGRAM TECHNICIAN documented in this encounter Results * CALCIUM IONIZED (11/26/2022 6:20 AM MONOGRAM TECHNICIAN) CALCIUM IONIZED 5.3 4.8 - 5.6 mg/dL 11/27/2022 9:49 AM MONOGRAM TECHNICIAN [facility] Blood Collection / Unknown 11/26/2022 6:20 AM MONOGRAM TECHNICIAN 11/26/2022 9:28 AM MONOGRAM TECHNICIAN Narrative [facility] - 11/27/2022 9:49 AM MONOGRAM TECHNICIAN Performing Organization Information: Site ID: [id number] Name: [facility] Address: [address] [address] Director: Andrew Alvarado MD us Low Amaya DO CHEMISTRY ORDERABLES Final R esult [facility] documented in this encounter Visit Diagnoses Not on filedocumented in this encounter Additional Health Concerns Infection Onset Date Last Indicated Resolved Time C Diff 11/17/2022 11/17/2022 01/16/2023 1:16 AM CDT documented as of this encounter Care Teams Assistant Housekeeping Manager Relationship Specialty Start Date End Date Shant Ballesteros Jr., MD [address] [place] [address] PCP - General Family Practice 01/19/14 documented as of this encounter
--- OUTSIDE RECORDS SUMMARY | 2025-05-27 11:11 | XMS_ITS | Encounter Summary ---
Author Organization [employer] [facility] Address [address] [place] [address] Care Team Providers Care Heel Top Lift Splitter Name Role Phone Favian Maldonado MD, Shant Humphreys Primary Care Provider Encounter Details Date Type Department Care Team (Late st Contact Info) Description 11/19/[address] [facility] Laboratory Services [address] [place] [address] Low Amaya, DO [address] [place] [address] Social History Tobacco Use Types Packs/Day Years Used Date Smoking Tobacco: Never Assessed Sex and Gender Information Value Date Recorded Sex Assigned at Not on file Legal Sex Male 9:45 AM HOURLY SALES STAFF Gender Identity Not on file Sexual Orientation Not on file documented as of this encounter Plan of Treatment Not on file documented as of this encounter Procedures Procedure Name Priority Date/Time Associated Diagnosis Comments CALCIUM IONIZED Routine 11/19/2022 3:45 PM HOURLY SALES STAFF documented in this encounter Results * CALCIUM IONIZED (11/19/2022 3:45 PM HOURLY SALES STAFF) CALCIUM IONIZED 5.2 4.8 - 5.6 mg/dL 11/21/2022 10:53 AM HOURLY SALES STAFF [facility] Blood Collection / Unknown 11/19/2022 3:45 PM HOURLY SALES STAFF 11/20/2022 7:56 AM HOURLY SALES STAFF Narrative [facility] - 11/21/2022 10:53 AM HOURLY SALES STAFF Performing Organization Information: Site ID: [id number] Name: [facility] Address: [address] [address] Director: Andrew Alvarado MD us Low Amaya DO CHEMISTRY ORDERABLES Final R esult [facility] documented in this encounter Visit Diagnoses Not on filedocumented in this encounter Additional Health Concerns Infection Onset Date Last Indicated Resolved Time C Diff 11/17/2022 11/17/2022 01/16/2023 1:16 AM CDT documented as of this encounter Care Teams Heel Top Lift Splitter Relationship Specialty Start Date End Date Shant Ballesteros Jr., MD [address] [place] [address] PCP - General Family Practice 01/19/14 documented as of this encounter
--- OUTSIDE RECORDS SUMMARY | 2025-05-27 11:11 | XMS_ITS | Encounter Summary ---
Author Organization [employer] Address [address] [place] [address] Care Team Providers Care Artist Scientific Name Role Phone Favian Maldonado MD, Shant Humphreys Primary Care Provider Encounter Details Date Type Department Care Team (Late st Contact Info) Description 11/28/2022 Lab Requisition [facility] Laboratory Services [address] [place] [address] Low Amaya, DO [address] [place] [phone] Social History Tobacco Use Types Packs/Day Years Used Date Smoking Tobacco: Never Assessed Sex and Gender Information Value Date Recorded Sex Assigned at Not on file Legal Sex Male 9:45 AM ANALYST PROGRAMMER Gender Identity Not on file Sexual Orientation Not on file documented as of this encounter Plan of Treatment Not on file documented as of this encounter Procedures Procedure Name Priority Date/Time Associated Diagnosis Comments PHOSPHORUS Routine 11/28/2022 7:48 AM ANALYST PROGRAMMER MAGNESIUM LEVEL Routine 11/28/2022 7:48 AM ANALYST PROGRAMMER COMPREHENSIVE METABOLIC PANEL Routine 11/28/2022 7:48 AM ANALYST PROGRAMMER documented in this encounter Results * MAGNESIUM LEVEL (11/28/2022 7:48 AM ANALYST PROGRAMMER) MAGNESIUM 2.0 1.6 - 2.4 mg/dL 11/28/2022 8:53 AM ANALYST PROGRAMMER [facility] Blood Collection / Unknown 11/28/2022 7:48 AM ANALYST PROGRAMMER 11/28/2022 8:34 AM ANALYST PROGRAMMER Low Amaya DO CHEMISTRY ORDERABLES Final R esult Performing Organization Address [facility]/ZIP Co de Phone Number [facility] CLIA # [id number] [address] [address] * PHOSPHORUS (11/28/2022 7:48 AM ANALYST PROGRAMMER) PHOSPHORUS 3.0 2.5 - 4.5 mg/dL 11/28/2022 8:53 AM [facility] Blood Collection / Unknown 11/28/2022 7:48 AM ANALYST PROGRAMMER 11/28/2022 8:34 AM ANALYST PROGRAMMER Low Amaya DO CHEMISTRY ORDERABLES Final R esult Performing Organization Address [facility]/ZIP Co de Phone Number [facility] CLIA # [id number] [address] [address] * (ABNORMAL) COMPREHENSIVE METABOLIC PANEL (11/28/2022 7:48 AM ANALYST PROGRAMMER) SODIUM 143 136 - 145 mmol/L 11/28/2022 8:53 AM [facility] POTASSIUM 4.0 3.5 - 5.1 mmol/L 11/28/2022 8:53 AM [facility] CHLORIDE 103 98 - 107 mmol/L 11/28/2022 8:53 AM [facility] CO2 33(H) 22 - 29 mmol/L 11/28/2022 8:53 AM [facility] CALCIUM 9.4 8.8 - 10.2 mg/dL 11/28/2022 8:53 AM [facility] BUN 27(H) 8 - 23 mg/dL 11/28/2022 8:53 AM [facility] CREATININE 0.96 0.67 - 1.17 mg/dL 11/28/2022 8:53 AM [facility] GLUCOSE 112(H) 74 - 99 mg/dL 11/28/2022 8:53 AM [facility] TOTAL PROTEIN 7.0 6.4 - 8.3 g/dL 11/28/2022 8:53 AM [facility] ALBUMIN 3.1(L) 3.5 - 5.2 g/dL 11/28/2022 8:53 AM [facility] BILIRUBIN TOTAL 0.3 0.2 - 1.0 mg/dL 11/28/2022 8:53 AM [facility] ALKALINE PHOSPHATASE 97 40 - 129 U/L 11/28/2022 8:53 AM [facility] AST 14 10 - 50 U/L 11/28/2022 8:53 AM [facility] ALT 11 <=50 U/L 11/28/2022 8:53 AM [facility] GFR >60 >=60 mL/min/1.7 3 sq meter 11/28/2022 8:53 AM [facility] Comment:eGFR calculated with 2020 CKD-EPI equation. Vegetarian diet, extremely high or low muscle mass, and may affect results. Cystatin C with Glomerular Filtration Rate is a suitable alternative for these patients. ANION GAP 7(L) 9 - 20 mmol/L 11/28/2022 8:53 AM [facility] Blood Collection / Unknown 11/28/2022 7:48 AM ANALYST PROGRAMMER 11/28/2022 8:34 AM ANALYST PROGRAMMER us Low Amaya DO CHEMISTRY ORDERABLES Final R esult [facility] CLIA # [id number] [facility] [address] documented in this encounter Visit Diagnoses Not on filedocumented in this encounter Additional Health Concerns Infection Onset Date Last Indicated Resolved Time C Diff 11/17/2022 11/17/2022 01/16/2023 1:16 AM CDT documented as of this encounter Care Teams Artist Scientific Relationship Specialty Start Date End Date Shant Ballesteros Jr., MD [address] [place] [address] PCP - General Family Practice 01/19/14 documented as of this encounter
--- OUTSIDE RECORDS SUMMARY | 2025-05-27 11:11 | XMS_ITS | Patient Health Record ---
Author Organization [facility] Address [address] [place] [address] Care Team Providers Care Dopeman Name Role Phone Kady Merrill Primary Care Provider Bala Wilson Unavailable [phone] KADY MERRILL Unavailable Unavailable Migration, Provider Unavailable Unavailable Miki Johnston Unavailable [phone] Tonya Woodruff Unavailable Allergies Allergen (clinical drug [...] Notes U[place], [place] - [address] Reviewed date:11/05/2024 02:44:16 PM Interpretation: Performing Lab: Notes/Report: Glucose 0 Bili 0 Ketones 0 Sp [place] 1.030 Blood 0 pH 5.5 Protein 1+ [...] IM Intramuscular 08/04/2020 Administered Influenza (whole), CPT 21769 Inactive Unknown 08/12/2018 Administered Pneumococcal polysaccharide PPV23 [...] W/U Status Risk Notes Problem 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 Problem Calculus of kidney (01506326) Calculus of kidney (N20.0) Active confirmed Problem Nephrolithiasis (60517171) Nephrolithiasis (N20.0) Active confirmed Problem Benign hypertension (81557860) Hypertension, benign (I10) Active confirmed Problem Sleep apnea (47711453) Sleep apnea in adult (G47.30) Active confirmed Problem Gout (93382857) Gout (M10.9) Active confirmed Problem Insomnia (374730569) Insomnia, unspecified type (G47.00) Active confirmed Problem Low libido (2167077) Low libido (R68.82) Active confirmed Problem Fatigue (45601974) Fatigue (R53.83) Active conf irmed Problem Atrial fibrillation (17364067) Atrial fibrillation, unspecified type (I48.91) Active confirmed Problem Seasonal allergy (172313245) Seasonal allergies (J30.2) Active confirmed Problem Hypertension (32589605) Hypertension (I10) Active confirmed Problem Asthma without statu s asthmaticus (16265516) Uncomplicated asthma, unspecified asthma severity, unspecified whether persistent (J45.909) Active confirmed Problem Macrocytosis (46331444) Macrocytosis (D75.89) Active confirmed Problem Obstructive sleep apnea syndrome (31913097) Obstructive sleep apnea (adult) (pediatric) (327.23) 2016 Active confirmed [id number]- Problem Lumbosacral spondylosis without myelopathy (81157918) 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 Active confirmed [id number]- Problem Erectile dysfunction (780629261) Erectile dysfunction (302.72) 2013 Active confirmed [id number]- Problem Adjustment disorder with depressed mood (67481102) Adjustment disorder with depressed mood (309.0) 2009 Problem resolved confirmed [id number]- Problem Hand foot and mouth disease (325372245) Hand, foot, and mouth disease (074.3) 2012 Problem resolved confirmed [id number]- Problem Sebaceous cyst (304512793) Sebaceous cyst (706.2) 2013 Problem resolved confirmed [id number]- Problem Seborrhea (9105488686) Seborrhea (706.3) 2013 Problem resolved confirmed [id number]- Problem Pressure ulcer, other site (707.09) 2017 Problem resolved confirmed [id number]- Problem Fever (057707868) Fever, unspeci fied (780.60) 2011 Problem resolved confirmed [id number]- Problem Palpitations (20924691) Palpitations (785.1) 2012 Problem resolved confirmed [id number]- Problem Heartburn (74570528) Heartburn (787.1) 2014 Problem resolved confirmed [id number]- Problem Screening for malignant neoplasm of prostate (206041114) Screening for prostate cancer (V76.44) 2017 Problem resolved confirmed [id number]- Problem Spasm (36356150) Muscle spasm (728.85) 2012 Problem resolved confirmed [id number]- Problem Androgen deficiency (44775651) Testosterone deficiency (257.2) 2013 Problem resolved confirmed [id number]- Problem Rash (660342690) Rash (782.1) 2010 Problem resolved confirmed [id number][id number]- Problem Depression (579053648) Depression (311) 2010 Problem resolved confirmed [id number][id number]- Problem Dizziness (812441212) Dizziness (780.4) 0 2010 Problem resolved confirmed [id number]- Problem Ventricular tachycardia (96218088) Ventricular tachycardia (427.1) 2007 Problem resolved confirmed [id number][id number]- Problem Hypercholesterolemia (27289448) Hypercholesterolemia (272.0) 2012 Problem resolved confirmed [id number][id number]- Problem Memory loss (40326713) Memory loss (780.9) 2014 Problem resolved confirmed [id number][id number]- Problem Secondary polycythemia (32283421) 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) 2017 Problem resolved confirmed [facility][id number] [id number]- Problem Shortness of breath (396231092) Shortness of breath (786.09) 2016 Problem resolved confirmed [facility][id number]- Problem Shoulder pain (96369901) Shoulder pain (719.41) 2013 Problem resolved confirmed [facility][id number] [id number]- Problem Disorder of hematopoietic system (84383380) Abnormal findings on blood examination, NEC (790.99) 2013 Problem resolved confirmed [facility][id number] [id number]- Problem Angina (449087095) Angina (413.9) 2010 Problem resolved confirmed [facility][id number] [id number]- Problem 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 Problem resolved confirmed [facility][id number] [id number]- Problem Disorder of hematopoietic system (67246685) Other abnormal findings on blood examination (790.99) 2015 Problem resolved confirmed [facility][id number] [id number]- Problem Disorder of hematopoietic system (95697457) Other abnormal laboratory result on blood (790.99) 2007 Problem resolved confirmed [facility][id number]- Problem Atypical mole syndrome (413120488) Atypical mole (238.2) 2008 Problem resolved confirmed [facility][id number] [id number]- Problem Chest pain (36658018) Chest pain (786.51) 2014 Problem resolved confirmed [facility][id number] [id number]- Problem Depressive disorder (30867647) Depressive disorder not elsewhere classified (311) 2014 Problem resolved confirmed [facility][id number] [id number]- Problem Generalized abdomina l pain (120820085) Generalized abdominal pain (789.07) 2008 Problem resolved confirmed [facility]-[id number] [id number]- Problem Lab: Used to mat ch unlinked laboratory orders (V92) 2014 Problem resolved confirmed [facility][id number] [id number]- Problem Impaired fasting glycaemia (295811736) Elevated fasting glucose (790.21) 2014 Problem resolved confirmed [facility][id number] [id number]- Problem Hemoglobinopathy (43156452) Elevated hematocrit (282.7) 2014 Problem resolved confirmed [facility]98 [id number]- Problem Abnormal chest sound s (48087875854626) Egophany (786.7) 2016 Problem resolved confirmed [facility][id number] [id number]- Problem Insomnia (189041395) Insomnia (307.41) 2012 Problem resolved confirmed [facility][id number] [id number]- Problem Pain in limb (18780920) Leg pain (729.5) 2010 Problem resolved confirmed [facility]98 [id number]- Problem Rib pain (059321594) Rib pain (786.50) 2013 Problem resolved confirmed [facility]-98 [id number]- Problem General examination of patient (613306945) Annual exam (V70.0) 2007 Problem resolved confirmed [facility]98 [id number]- Problem Staphylococcal infectious disease (56490505) Staph infection (041.19) 2015 Problem resolved confirmed [facility]98 [id number]- Problem Heart disease (76039234) Asymmetrical cardiac hypertrophy (429.9) 2007 Problem resolved confirmed [facility]98 [id number]- Problem Obstructive sleep apnea (25710799) Obstructive sleep apnea (780.57) 2014 Problem resolved confirmed [facility]98 5911- Problem Stress (364497831) Stress (300.02) 2008 Problem resolved confirmed [facility]98 [id number]- Problem Acute upper respiratory infection (29502519) Acute upper respiratory infection of multiple sites (465.8) 2018 Problem resolved confirmed [facility]-98 [id number]- Problem Congestion (27752009) Congestion (477.9) 2007 Problem resolved confirmed [facility]98 [id number]- Problem Lumbar radiculopathy (815304837) Lumbar radiculopathy (722.10) 2010 Problem resolved confirmed [facility]98 [id number]- Problem Acquired polycythemi a (54772192) Acquired polycythemia (289.0) 2016 Problem resolved confirmed [facility]98 5911- Problem Acute sinusitis (98962858) Acute sinusitis (461.8) 2007 Problem resolved confirmed [facility]98 5911- Problem Ankle pain (524991024) Ankle pain (719.47) 2013 Problem resolved confirmed [facility]98 5911- Problem Heart murmur (27473567) Cardiac murmur (785.2) 2007 Problem resolved confirmed [facility]98 5911- Problem Erythrocyte sedimentation rate raised (691947670) Elevated sed rate (ESR) (790.1) 2011 Problem resolved confirmed [facility]98 [id number]- Problem Gynecomastia (6279000) Gynecomastia (611.1) 2015 Problem resolved confirmed [facility]98 [id number]- Problem Thrombosed external hemorrhoids (84102394) Hemorrhoids, external thrombosed (455.4) 2017 Problem resolved confirmed [facility]98 [id number]- Problem Disorder of lipid metabolism (229241859) Low HDL level (272.9) 2010 Problem resolved confirmed [facility]98 5911- Problem Left ventricular hypertrophy (15131258) LVH (429.3) 2010 Problem resolved confirmed [facility]98 [id number]- Problem Cellulitis and abscess of lower leg (076797727) Cellulitis of the leg (682.6) 2013 Problem resolved confirmed [facility]98 5911- Problem Change in voice (439174498) Change in voice (784.49) 2013 Problem resolved confirmed [facility]98 5911- Problem Acute upper respiratory infection (78369308) Upper respiratory illness (465.8) 2007 Problem resolved confirmed [facility]98 5911- Problem Kidney stone (83197684) kidney stones (592.0) 2007 Problem resolved confirmed [facility]98 5911- Problem Cramp in lower limb (509778642) Leg cramps (729.82) 2017 Problem resolved confirmed [facility]98 5911- Problem Low back pain (492609612) Lower back pain (724.2) 2010 Problem resolved confirmed [facility]98 5911- Problem Dry mouth (15288588) Dry mouth (527.7) 2014 Problem resolved confirmed [facility]98 5911- Problem Essential hypertension (27041808) Essential hypertension (401.1) 2010 Problem resolved confirmed [facility]98 5911- Problem Impacted cerumen (33150097) External cerumen impaction (380.4) 2011 Problem resolved confirmed [facility]98 5911- Problem Laceration of foot (433486697) Laceration of foot (892.0) 2011 Problem resolved confirmed [facility]98 5911- Problem Pedal edema (493451237) Pedal edema (782.3) 2014 Problem resolved confirmed [facility]98 5911- Problem Synovial cyst (247454541) Synovial cyst, NOS (727.40) 2017 Problem resolved confirmed [facility]98 5911- Problem Thoracic back pain (750663676) Upper back pain (724.5) 2008 Problem resolved confirmed [facility]-98 5911- Problem Seborrheic keratosis (941076217) Seborrheic keratosis, other (702.19) 2015 Problem resolved confirmed [facility]-98 5911- Vital Signs Heart Rate 94 /min 11/05/2024 Temperature 97.73 degrees Fahrenheit 11/05/2024 Blood pressure diastolic 64 mm Hg 11/05/2024 Height-cm 193.04 cm 11/05/2024 Weight-kg 130.45 kg 11/05/2024 Height 76.00 in 11/05/2024 Blood pressure systolic 101 mm Hg 11/05/2024 Weight 287.6 lbs 11/05/2024 BMI 35 kg/m2 11/05/2024 Encounters Encounter Location Date Provider Diagnosis [facility] [address] [place] [address] [address] [place] [address] 11/05/2024 Tonya Woodruff Hypertension I10 ; Testicular hypofunction E29.1 ; Nephrolithiasis N20.0 ; Fatigue R53.83 and Low libido R68.82 Migrated_Facility 0 0 07/25/2024 Provider Migration Migrated_Facility 0 0 07/26/2024 Provider Migration [facility] [address] [place] [address] [address] [place] [address] 06/15/2024 Miki Vickie Calculus of kidney N20.0 [facility] [address] [place] [address] 06/19/2024 Miki Johnston Testicular hypofunct ion E29.1 [facility] [address] [place] [address] 07/03/2024 Miki Johnston Testicular hypofunct ion E29.1 [facility] [address] [place] [address] 07/09/2024 Miki Johnston Testicular hypofunct ion E29.1 [facility] [address] [place] [address] 09/25/2024 Miki Shinsay [facility] [address] [place] [address] 09/25/2024 Miki Johnston [facility] [address] [place] [address] 11/05/2024 Miki Johnston Testicular hypofunct ion E29.1 [facility] [address] [place] [address] 11/27[facility] [address] [place] [address] 12/11/2024 Tonya TrentMorales [facility] [address] [place] [address] 05/05/2025 Miki Johnston [facility] [address] [place] [address] 05/05/2025 Miki Shinsay [facility] [address] [place] [address] 05/05/2025 Miki Johnston Assessments Encounter Date Diagnosis [...] lower abdomen and groin. Pain during urination Carlyle, red, or brown urine. Nausea and Vomiting [...] to help pass the stone. Pain Management: [id number] pain relievers like ibuprofen or acetaminophen. Medications: [...] Name Order Date CBC w\ Auto Diff [id number] 06/15/2024 CBC w\ Auto Diff 43550 06/19/2024 Comprehensive Metabolic Panel (CMP) 8005 3 06/19/2024 Comprehensive Metabolic Panel (CMP) 8005 3 06/15/2024 Estradiol Level 99216 06/15/2024 Estradiol Level 49942 06/19/2024 Testosterone Total 30088 06/19/2024 Testosterone Total 70932 06/15/2024 Abdomen AP-[id number] 06/15/2024 Future Test Test Name Order Date CBC w\ Auto Diff 82398 03/30/2025 Comprehensive Metabolic Panel (CMP) 8005 3 03/30/2025 Estradiol Level 43390 03/30/2025 PSA Diagnostic--90912 03/30/2025 Testosterone Total 29667 03/30/2025 Insurance Providers Payer Name Payer Address Payer Phone Subscriber Number Group Number Insured Name Patient Relationship to Insured Coverage Start Date Coverage End Date [employer] [place] [employer] [address] [place] [address] [id number] Charan Smith Self - patient is the insured Medical (General) History Medical History History ICD Code Asymmetrical cardiac hypertrophy Hypertension Hypercholesterolemia Sleep apnea Osteoarthritis Testosterone deficiency Erectile dysfunction Depression OTHER MEDICAL PROVIDERS Inspector Toys- Dr. Orourke Pain management- Dr. Maldonado Urologist- Dr. Cage Sprinkler Repair Technician - Dr. Bala Juárez Thyroid tumor, benign 09/2020 Electrocution; 02/2020 Asthma CKD New onset of A-fib Surgical History Surgery Date(Month/Year) Fracture of wrist; 2004 Foot; left 2013 L4-L5 Fusion Hospitalization History Reason Date(Month/Year) New onset Afib 11/07/20 Covid 09/2020
--- OUTSIDE RECORDS SUMMARY | 2025-05-27 11:11 | XMS_ITS | Encounter Summary ---
Author Organization [facility] Address [address] [place] [address] Care Team Providers Care Shipping Manager Name Role Phone Favian Maldonado MD, Shant Humphreys Primary Care Provider Encounter Details Date Type Department Care Team (Late st Contact Info) Description 11/17/2022 Lab Requisition [facility] Laboratory Services [address] [place] [address] Cary Javier PA-C [address] [place] [address] Social History Tobacco Use Types Packs/Day Years Used Date Smoking Tobacco: Never Assessed Sex and Gender Information Value Date Recorded Sex Assigned at Not on file Legal Sex Male 9:45 AM HEAD OF HUMAN RESOURCES Gender Identity Not on file Sexual Orientation Not on file documented as of this encounter Plan of Treatment Not on file documented as of this encounter Procedures Procedure Name Priority Date/Time Associated Diagnosis Comments C. DIFFICILE DETECTION Routine 11/17/2022 10:45 AM HEAD OF HUMAN RESOURCES documented in this encounter Results * (ABNORMAL) C. DIFFICILE DETECTION (11/17/2022 10:45 AM HEAD OF HUMAN RESOURCES) TOXIGENIC C DIFFICILE DETECTED( A) Not Detected 11/17/2022 1:45 PM HEAD OF HUMAN RESOURCES [facility] [employer] [facility] Stool STOOL SPECIMEN / Unknown Collection / Unknown 11/17/2022 10:45 AM HEAD OF HUMAN [employer]OURCES 11/17/2022 12:20 PM HEAD [employer]OURCES Narrative [facility] [employer] [facility] - 11/17/2022 1:45 PM HEAD OF HUMAN RESOURCES Cdiff detected called to Cait Feng [facility] by CATRACHO REINA on 11/17/2022 [...] MICROBIOLOGY - GENERAL ORDERAB LES Final Result [facility] [employer] [facility] CLIA # [id number] [facility] [address] documented in this encounter Visit Diagnoses Not on filedocumented in this encounter Additional Health Concerns Infection Onset Date Last Indicated Resolved Time C Diff 11/17/2022 11/17/2022 01/16/2023 1:16 AM CDT documented as of this encounter Care Teams Shipping Manager Relationship Specialty Start Date End Date Shant Ballesteros Jr., MD [address] [place] [address] PCP - General Family Practice 01/19/14 documented as of this encounter
--- OUTSIDE RECORDS SUMMARY | 2025-05-27 11:11 | XMS_ITS | Encounter Summary ---
Author Organization [employer] [facility] Address [address] [place] [address] Care Team Providers Care Ferryboat Operator Name Role Phone Favian Maldonado MD, Shant Humphreys Primary Care Provider Encounter Details Date Type Department Care Team (Late st Contact Info) Description 12/03/2022 Lab Requisition [facility] Laboratory Services [address] [place] [address] Andre Mary, MADHU [address] [facility] [address] [place] [address] Social History Tobacco Use Types Packs/Day Years Used Date Smoking Tobacco: Never Assessed Sex and Gender Information Value Date Recorded Sex Assigned at Not on file Legal Sex Male 9:45 AM MACHINE TOOL OPERATOR Gender Identity Not on file Sexual Orientation Not on file documented as of this encounter Plan of Treatment Not on file documented as of this encounter Procedures Procedure Name Priority Date/Time Associated Diagnosis Comments CBC WITH DIFFERENTIAL Routine 12/03/2022 2:00 AM MACHINE TOOL OPERATOR TRIGLYCERIDE Routine 12/03/2022 2:00 AM MACHINE TOOL OPERATOR PHOSPHORUS Routine 12/03/2022 2:00 AM MACHINE TOOL OPERATOR MAGNESIUM LEVEL Routine 12/03/2022 2:00 AM MACHINE TOOL OPERATOR COMPREHENSIVE METABOLIC PANEL Routine 12/03/2022 2:00 AM MACHINE TOOL OPERATOR documented in this encounter Results * MAGNESIUM LEVEL (12/03/2022 2:00 AM MACHINE TOOL OPERATOR) MAGNESIUM 1.9 1.6 - 2.4 mg/dL 12/03/2022 7:06 AM [facility] Blood Collection / Unknown 12/03/2022 2:00 AM MACHINE TOOL OPERATOR 12/03/2022 6:33 AM MACHINE TOOL OPERATOR Andre Mary WET COTTON FEEDER CHEMISTRY ORDERABLES Fin al Result Performing Organization Address [facility] de Phone Number [facility] CLIA # [id number] [id number] [place], [place] [address] * (ABNORMAL) TRIGLYCERIDE (12/03/2022 2:00 AM MACHINE TOOL OPERATOR) Pathologist [facility] [place] TRIGLYCERIDE 163(H) <150 mg/dL 12/03/2022 7:06 AM [facility] Blood Collection / Unknown 12/03/2022 2:00 AM MACHINE TOOL OPERATOR 12/03/2022 6:33 AM MACHINE TOOL OPERATOR Narrative [facility] - 12/03/2022 7:06 AM MACHINE TOOL OPERATOR TRIGLYCERIDES mg/dL Normal < 150 Borderline High 150 - 199 High 200 - 499 Very High >= 500 Based on AHA/NCEP Guidelines. Andre Mary WET COTTON FEEDER CHEMISTRY ORDERABLES Fin al Result Performing Organization Address [facility] de Phone Number [facility] CLIA # [id number] [address] [facility] [place], [place] [address] * PHOSPHORUS (12/03/2022 2:00 AM MACHINE TOOL OPERATOR) Pathologist [facility] [place] PHOSPHORUS 3.3 2.5 - 4.5 mg/dL 12/03/2022 7:06 AM [facility] Blood Collection / Unknown 12/03/2022 2:00 AM MACHINE TOOL OPERATOR 12/03/2022 6:33 AM MACHINE TOOL OPERATOR us Andre Mary NP CHEMISTRY ORDERABLES Fin al Result [facility] CLIA # [id number] [address] [facility] [facility] [address] * (ABNORMAL) CBC WITH DIFFERENTIAL (12/03/2022 2:00 AM MACHINE TOOL OPERATOR) [facility] WBC 6.5 4.8 - 10.8 K/uL 12/03/2022 6:40 AM [facility] RBC 3.05(L) 4.60 - 6.20 M/uL 12/03/2022 6:40 AM [facility] HEMOGLOBIN 9.1(L) 14.0 - 18.0 g/dL 12/03/2022 6:40 AM [facility] HEMATOCRIT 30.4(L) 41.0 - 53.0 % 12/03/2022 6:40 AM [facility] MCV 99.7 84.0 - 103.0 fL 12/03/2022 6:40 AM [facility] MCH 29.8 27.0 - 34.0 pg 12/03/2022 6:40 AM [facility] MCHC 29.9(L) 30.0 - 35.0 g/dL 12/03/2022 6:40 AM [facility] RDW 17.5(H) 11.0 - 14.5 % 12/03/2022 6:40 AM [facility] RDW-STDEV 63.8(H) 37.0 - 54.0 fL 12/03/2022 6:40 AM [facility] PLATELETS 247 140 - 440 K/uL 12/03/2022 6:40 AM [facility] MPV 10.6 8.9 - 12.8 fL 12/03/2022 6:40 AM [facility] NEUTROPHILS 57 42 - 75 % 12/03/2022 6:40 AM [facility] LYMPHOCYTES 19(L) 24 - 44 % 12/03/2022 6:40 AM [facility] MONOCYTES 12(H) 2 - 10 % 12/03/2022 6:40 AM [facility] EOSINOPHILS 11(H) 0 - 7 % 12/03/2022 6:40 AM [facility] BASOPHILS 1 0 - 1 % 12/03/2022 6:40 AM [facility] IMMATURE GRANULOCYTES 1 0 - 2 % 12/03/2022 6:40 AM [facility] NEUTROPHIL ABSOLUTE 3.68 2.00 - 8.00 K/uL 12/03/2022 6:40 AM [facility] LYMPHOCYTE ABSOLUTE 1.22 1.20 - 4.00 K/uL 12/03/2022 6:40 AM [facility] MONOCYTE ABSOLUTE 0.80(H) 0.10 - 0.60 K/uL 12/03/2022 6:40 AM [facility] EOSINOPHIL ABSOLUTE 0.69 0.00 - 0.70 K/uL 12/03/2022 6:40 AM [facility] BASOPHILS ABSOLUTE 0.06 0.00 - 0.20 K/uL 12/03/2022 6:40 AM [facility] IMMATURE GRANULOCYTES ABSOLUTE 0.03 0.00 - 0.10 K/uL 12/03/2022 6:40 AM [facility] Blood Collection / Unknown 12/03/2022 2:00 AM MACHINE TOOL OPERATOR 12/03/2022 6:[address] [facility] us Andre Mary WET COTTON FEEDER HEMATOLOGY ORDERABLES Fi nal Result [facility] CLIA # [id number] [address] [facility] [place], [place] [id number] * (ABNORMAL) COMPREHENSIVE METABOLIC PANEL (12/03/2022 2:00 AM MACHINE TOOL OPERATOR) [facility] SODIUM 140 136 - 145 mmol/L 12/03/2022 7:06 AM [facility] POTASSIUM 3.5 3.5 - 5.1 mmol/L 12/03/2022 7:06 AM [facility] CHLORIDE 101 98 - 107 mmol/L 12/03/2022 7:06 AM [facility] CO2 31(H) 22 - 29 mmol/L 12/03/2022 7:06 AM [facility] CALCIUM 9.8 8.8 - 10.2 mg/dL 12/03/2022 7:06 AM [facility] BUN 28(H) 8 - 23 mg/dL 12/03/2022 7:06 AM [facility] CREATININE 0.88 0.67 - 1.17 mg/dL 12/03/2022 7:06 AM [facility] GLUCOSE 130(H) 74 - 99 mg/dL 12/03/2022 7:06 AM [facility] TOTAL PROTEIN 6.8 6.4 - 8.3 g/dL 12/03/2022 7:06 AM [facility] ALBUMIN 3.1(L) 3.5 - 5.2 g/dL 12/03/2022 7:06 AM [facility] BILIRUBIN TOTAL 0.3 0.2 - 1.0 mg/dL 12/03/2022 7:06 AM [facility] ALKALINE PHOSPHATASE 104 40 - 129 U/L 12/03/2022 7:06 AM [facility] AST 19 10 - 50 U/L 12/03/2022 7:06 AM [facility] ALT 14 <=50 U/L 12/03/2022 7:06 AM [facility] GFR >60 >=60 mL/min/1.7 3 sq meter 12/03/2022 7:06 AM [facility] Comment:eGFR calculated with 2020 CKD-EPI equation. Vegetarian diet, extremely high or low muscle mass, and may affect results. Cystatin C with Glomerular Filtration Rate is a suitable alternative for these patients. ANION GAP 8(L) 9 - 20 mmol/L 12/03/2022 7:06 AM MACHINE TOOL OPERATOR [facility] Blood Collection / Unknown 12/03/2022 2:00 AM MACHINE TOOL OPERATOR 12/03/2022 6:33 AM MACHINE TOOL OPERATOR us Andre Mary WET COTTON FEEDER CHEMISTRY ORDERABLES Fin al Result [facility] CLIA # [id number] [facility] [address] [place] [address] documented in this encounter Visit Diagnoses Not on filedocumented in this encounter Additional Health Concerns Infection Onset Date Last Indicated Resolved Time C Diff 11/17/2022 11/17/2022 01/16/2023 1:16 AM CDT documented as of this encounter Care Teams Ferryboat Operator Relationship Specialty Start Date End Date Shant Ballesteros Jr., MD [address] [place] [address] PCP - General Family Practice 01/19/14 documented as of this encounter
--- OUTSIDE RECORDS SUMMARY | 2025-05-27 11:11 | XMS_ITS | Clinical Summary ---
Author Organization [facility] Address [address] [facility] [address] Lara: Epic Prelude ADT JUVENAL MAHARAJ [address] Care Team Providers Care Direct Service Professional Name Role Phone Favian Maldonado MD, Shant [...] 01/04/20 23 Active naloxone (NARCAN) 4 mg/spray [place], Non-Aerosol EMERGENCY USE ONLY: Administer 1 spray [...] 12/21/2022 Immunizations Immunization Administration Dates Next Due (uchoose)(12 YR UP) COVID-19 VACCINE - EMERGENCY USE AUTHORIZATION, MRNA, [id number](PF) 30 MCG/0.3 ML IM SUSP 11/09/2022 (PNEUMOVAX [...] on file Legal Sex Male 9:45 AM ADMISSION LIAISON Gender Identity Not on file Sexual Orientation [...] (1 - 1-dose 75+ series) 2030 Insurance [facility] MEDICARE HMO Advance Directives For more information, please contact: [phone] * Full Code (Latest Code Status on File) Date Activated Date Inactivated Comments 12/21/2022 9:43 PM 01/03/2023 3:13 PM Care Teams Direct Service Professional Relationship Specialty Start Date End Date Shant Ballesteros Jr., MD [address] [place] [address] PCP - General Family Practice 01/19/14
--- OUTSIDE RECORDS SUMMARY | 2025-05-27 11:11 | XMS_ITS | Encounter Summary ---
Author Organization [facility] Address [address] [place] [address] Care Team Providers Care Furnace Operator Oil [employer] Name Role Phone Favian Maldonado MD, Shant Humphreys Primary Care Provider Encounter Details Date Type Department Care Team (Late st Contact Info) Description 11/20/2022 Lab Requisition [facility] Laboratory Services [address] [place] [address] [place] [address] Andre Mary, MADHU [address] [facility] [address] [place] [address] Social History Tobacco Use Types Packs/Day Years Used Date Smoking Tobacco: Never Assessed Sex and Gender Information Value Date Recorded Sex Assigned at Not on file Legal Sex Male 9:45 AM LEARNING CONSULTANT Gender Identity Not on file Sexual Orientation Not on file documented as of this encounter Plan of Treatment Not on file documented as of this encounter Procedures Procedure Name Priority Date/Time Associated Diagnosis Comments CBC WITH DIFFERENTIAL Routine 11/20/2022 3:55 PM LEARNING CONSULTANT documented in this encounter Results * (ABNORMAL) CBC WITH DIFFERENTIAL (11/20/2022 3:55 PM LEARNING CONSULTANT) WBC 7.3 4.8 - 10.8 K/uL 11/20/2022 4:[address] [facility] RBC 2.66(L) 4.60 - 6.20 M/uL 11/20/2022 4:[address] [facility] HEMOGLOBIN 8.0(L) 14.0 - 18.0 g/dL 11/20/2022 4:35 PM [facility] HEMATOCRIT 27.1(L) 41.0 - 53.0 % 11/20/2022 4:35 PM [facility] MCV 101.9 84.0 - 103.0 fL 11/20/2022 4:35 PM [facility] MCH 30.1 27.0 - 34.0 pg 11/20/2022 4:35 PM [facility] MCHC 29.5(L) 30.0 - 35.0 g/dL 11/20/2022 4:35 PM [facility] RDW 17.7(H) 11.0 - 14.5 % 11/20/2022 4:35 PM [facility] RDW-STDEV 62.4(H) 37.0 - 54.0 fL 11/20/2022 4:35 PM [facility] PLATELETS 302 140 - 440 K/uL 11/20/2022 4:35 PM [facility] MPV 9.6 8.9 - 12.8 fL 11/20/2022 4:35 PM [facility] NEUTROPHILS 68 42 - 75 % 11/20/2022 4:35 PM [facility] LYMPHOCYTES 15(L) 24 - 44 % 11/20/2022 4:35 PM [facility] MONOCYTES 12(H) 2 - 10 % 11/20/2022 4:35 PM [facility] EOSINOPHILS 3 0 - 7 % 11/20/2022 4:35 PM [facility] BASOPHILS 0 0 - 1 % 11/20/2022 4:35 PM [facility] IMMATURE GRANULOCYTES 1 0 - 2 % 11/20/2022 4:35 PM [facility] NEUTROPHIL ABSOLUTE 5.00 2.00 - 8.00 K/uL 11/20/2022 4:35 PM [facility] LYMPHOCYTE ABSOLUTE 1.06(L) 1.20 - 4.00 K/uL 11/20/2022 4:35 PM LEARNING CONSULTANT [facility] MONOCYTE ABSOLUTE 0.91(H) 0.10 - 0.60 K/uL 11/20/2022 4:35 PM LEARNING CONSULTANT [facility] EOSINOPHIL ABSOLUTE 0.22 0.00 - 0.70 K/uL 11/20/2022 4:35 PM [facility] BASOPHILS ABSOLUTE 0.02 0.00 - 0.20 K/uL 11/20/2022 4:35 PM [facility] IMMATURE GRANULOCYTES ABSOLUTE 0.10 0.00 - 0.10 K/uL 11/20/2022 4:35 PM [facility] Blood Collection / Unknown 11/20/2022 3:55 PM LEARNING CONSULTANT 11/20/2022 4:30 PM LEARNING CONSULTANT us Andre Mary SHIP KEEPER HEMATOLOGY ORDERABLES Fi nal Result [facility] CLIA # [id number] [facility] [address] documented in this encounter Visit Diagnoses Not on filedocumented in this encounter Additional Health Concerns Infection Onset Date Last Indicated Resolved Time C Diff 11/17/2022 11/17/2022 01/16/2023 1:16 AM CDT documented as of this encounter Care Teams Furnace Operator Oil [employer] Relationship Specialty Start Date End Date Shant Ballesteros Jr., MD [address] [place] [address] PCP - General Family Practice 01/19/14 documented as of this encounter
--- OUTSIDE RECORDS SUMMARY | 2025-05-27 11:11 | XMS_ITS | Encounter Summary ---
Author Organization [facility] Address [address] [place] [address] Care Team Providers Care Mobility Specialist Name Role Phone Favian Maldonado MD, Shant Humphreys Primary Care Provider Encounter Details Date Type Department Care Team (Late st Contact Info) Description 11/10/2022 Lab Requisition [facility] Laboratory Services [address] [place] [address] [place] [address] Soni Jeffery MD [address] [place] [address] Social History Tobacco Use Types Packs/Day Years Used Date Smoking Tobacco: Never Assessed Sex and Gender Information Value Date Recorded Sex Assigned at Not on file Legal Sex Male 9:45 AM OFFICE DIRECTOR Gender Identity Not on file Sexual Orientation Not on file documented as of this encounter Plan of Treatment Not on file documented as of this encounter Procedures Procedure Name Priority Date/Time Associated Diagnosis Comments CBC WITH DIFFERENTIAL Stat 11/10/2022 2:20 PM OFFICE DIRECTOR documented in this encounter Results * (ABNORMAL) CBC WITH DIFFERENTIAL (11/10/2022 2:20 PM OFFICE DIRECTOR) WBC 5.2 4.8 - 10.8 K/uL 11/10/2022 3:18 PM OFFICE DIRECTOR [facility] RBC 2.60(L) 4.60 - 6.20 M/uL 11/10/2022 3:18 PM OFFICE DIRECTOR [facility] HEMOGLOBIN 7.6(L) 14.0 - 18.0 [...] 0.10 - 0.60 K/uL 11/10/2022 3:18 PM OFFICE DIRECTOR [facility] EOSINOPHIL ABSOLUTE 0.30 0.00 - 0.70 K/uL 11/10/2022 3:18 PM OFFICE DIRECTOR [facility] BASOPHILS ABSOLUTE 0.03 0.00 - 0.20 K/uL 11/10/2022 3:18 PM OFFICE DIRECTOR [facility] IMMATURE GRANULOCYTES ABSOLUTE 0.03 0.00 - 0.10 K/uL 11/10/2022 3:18 PM OFFICE DIRECTOR [facility] Blood Collection / Unknown 11/10/2022 2:20 PM OFFICE DIRECTOR 11/10/2022 3:09 PM OFFICE DIRECTOR Soin Jeffery MD HEMATOLOGY ORDERABLES Final Resu lt [facility] CLIA # [id number] [facility] [address] documented in this encounter Visit Diagnoses Not on filedocumented in this encounter Additional Health Concerns Infection Onset Date Last Indicated Resolved Time C Diff 11/17/2022 11/17/2022 01/16/2023 1:16 AM CDT documented as of this encounter Care Teams Mobility Specialist Relationship Specialty Start Date End Date Shant Ballesteros Jr., MD [address] [place] [address] PCP - General Family Practice 01/19/14 documented as of this encounter
--- OUTSIDE RECORDS SUMMARY | 2025-05-27 11:11 | XMS_ITS | Encounter Summary ---
Author Organization [employer] [facility] Address [address] [place] [address] Care Team Providers Care Retrimmer Name Role Phone Favian Maldonado MD, Shant Humphreys Primary Care Provider Encounter Details Date Type Department Care Team (Late st Contact Info) Description 11/17/2022 Lab Requisition [facility] Laboratory Services [address] [place] [address] Andre Mary, MADHU [address] [facility] [address] [place] [address] Social History Tobacco Use Types Packs/Day Years Used Date Smoking Tobacco: Never Assessed Sex and Gender Information Value Date Recorded Sex Assigned at Not on file Legal Sex Male 9:45 AM ROOF SLATER Gender Identity Not on file Sexual Orientation Not on file documented as of this encounter Plan of Treatment Not on file documented as of this encounter Procedures Procedure Name Priority Date/Time Associated Diagnosis Comments CBC WITH DIFFERENTIAL Stat 11/17/2022 4:30 AM ROOF SLATER TRIGLYCERIDE Stat 11/17/2022 4:30 AM ROOF SLATER PHOSPHORUS Stat 11/17/2022 4:30 AM ROOF SLATER MAGNESIUM LEVEL Stat 11/17/2022 4:30 AM ROOF SLATER COMPREHENSIVE METABOLIC PANEL Routine 11/17/2022 4:30 AM ROOF SLATER documented in this encounter Results * TRIGLYCERIDE (11/17/2022 4:30 AM ROOF SLATER) TRIGLYCERIDE 103 <150 mg/dL 11/17/2022 5:51 AM ROOF SLATER [facility] Blood Collection / Unknown 11/17/2022 4:30 AM ROOF SLATER 11/17/2022 5:31 AM ROOF SLATER Narrative [facility] - 11/17/2022 5:51 AM ROOF SLATER TRIGLYCERIDES mg/dL Normal < 150 Borderline High 150 - 199 High 200 - 499 Very High >= 500 Based on AHA/NCEP Guidelines. Andre Mary RETAIL SOLAR ADVISOR CHEMISTRY ORDERABLES Fin al Result Performing Organization Address City/[facility]/ZIP Co de Phone Number [facility] CLIA # [id number] [address] [place], [place] [id number] * PHOSPHORUS (11/17/2022 4:30 AM ROOF SLATER) Pathologist [facility] PHOSPHORUS 3.2 2.5 - 4.5 mg/dL 11/17/2022 5:51 AM ROOF SLATER [facility] Blood Collection / Unknown 11/17/2022 4:30 AM ROOF SLATER 11/17/2022 5:31 AM ROOF SLATER Andre Mary RETAIL SOLAR ADVISOR CHEMISTRY ORDERABLES Fin al Result [facility] CLIA # [id number] [address] [facility] [place], [place] [address] * MAGNESIUM LEVEL (11/17/2022 4:30 AM ROOF SLATER) MAGNESIUM 2.1 1.6 - 2.4 mg/dL 11/17/2022 5:51 AM ROOF SLATER [facility] Blood Collection / Unknown 11/17/2022 4:30 AM ROOF SLATER 11/17/2022 5:31 AM ROOF SLATER us Andre Mary NP CHEMISTRY ORDERABLES Fin al Result [facility] CLBRYANT # [id number] [address] [facility] [place] [address] * (ABNORMAL) CBC WITH DIFFERENTIAL (11/17/2022 4:30 AM ROOF SLATER) [facility] WBC 8.8 4.8 - 10.8 K/uL 11/17/2022 5:58 AM [facility] RBC 2.68(L) 4.60 - 6.20 M/uL 11/17/2022 5:58 AM [facility] HEMOGLOBIN 8.0(L) 14.0 - 18.0 g/dL 11/17/2022 5:58 AM [facility] HEMATOCRIT 27.6(L) 41.0 - 53.0 % 11/17/2022 5:58 AM [facility] MCV 103.0 84.0 - 103.0 fL 11/17/2022 5:58 AM [facility] MCH 29.9 27.0 - 34.0 pg 11/17/2022 5:58 AM [facility] MCHC 29.0(L) 30.0 - 35.0 g/dL 11/17/2022 5:58 AM [facility] RDW 18.1(H) 11.0 - 14.5 % 11/17/2022 5:58 AM [facility] RDW-STDEV 65.9(H) 37.0 - 54.0 fL 11/17/2022 5:58 AM [facility] PLATELETS 296 140 - 440 K/uL 11/17/2022 5:58 AM [facility] MPV 9.6 8.9 - 12.8 fL 11/17/2022 5:58 AM [facility] NEUTROPHILS 67 42 - 75 % 11/17/2022 5:58 AM [facility] LYMPHOCYTES 12(L) 24 - 44 % 11/17/2022 5:58 AM [facility] MONOCYTES 13(H) 2 - 10 % 11/17/2022 5:58 AM [facility] EOSINOPHILS 6 0 - 7 % 11/17/2022 5:58 AM [facility] BASOPHILS 1 0 - 1 % 11/17/2022 5:58 AM [facility] IMMATURE GRANULOCYTES 2 0 - 2 % 11/17/2022 5:58 AM [facility] NEUTROPHIL ABSOLUTE 5.91 2.00 - 8.00 K/uL 11/17/2022 5:58 AM [facility] LYMPHOCYTE ABSOLUTE 1.04(L) 1.20 - 4.00 K/uL 11/17/2022 5:58 AM [facility] MONOCYTE ABSOLUTE 1.10(H) 0.10 - 0.60 K/uL 11/17/2022 5:58 AM [facility] EOSINOPHIL ABSOLUTE 0.56 0.00 - 0.70 K/uL 11/17/2022 5:58 AM [facility] BASOPHILS ABSOLUTE 0.06 0.00 - 0.20 K/uL 11/17/2022 5:58 AM [facility] IMMATURE GRANULOCYTES ABSOLUTE 0.13(H) 0.00 - 0.10 K/uL 11/17/2022 5:58 AM [facility] Blood Collection / Unknown 11/17/2022 4:30 AM ROOF SLATER 11/17/2022 5:30 AM [facility] us Andre Mary RETAIL SOLAR ADVISOR HEMATOLOGY ORDERABLES Fi nal Result [facility] CLIA # [id number] [address] [address] [place], [place] [id number] * (ABNORMAL) COMPREHENSIVE METABOLIC PANEL (11/17/2022 4:30 AM ROOF SLATER) [facility] SODIUM 144 136 - 145 mmol/L 11/17/2022 5:51 AM [facility] POTASSIUM 3.8 3.5 - 5.1 mmol/L 11/17/2022 5:51 AM [facility] CHLORIDE 107 98 - 107 mmol/L 11/17/2022 5:51 AM [facility] CO2 34(H) 22 - 29 mmol/L 11/17/2022 5:51 AM [facility] CALCIUM 9.1 8.8 - 10.2 mg/dL 11/17/2022 5:51 AM [facility] BUN 20 8 - 23 mg/dL 11/17/2022 5:51 AM [facility] CREATININE 1.03 0.67 - 1.17 mg/dL 11/17/2022 5:51 AM [facility] GLUCOSE 151(H) 74 - 99 mg/dL 11/17/2022 5:51 AM [facility] TOTAL PROTEIN 6.5 6.4 - 8.3 g/dL 11/17/2022 5:51 AM [facility] ALBUMIN 2.8(L) 3.5 - 5.2 g/dL 11/17/2022 5:51 AM [facility] BILIRUBIN TOTAL 0.3 0.2 - 1.0 mg/dL 11/17/2022 5:51 AM [facility] ALKALINE PHOSPHATASE 69 40 - 129 U/L 11/17/2022 5:51 AM [facility] AST 12 10 - 50 U/L 11/17/2022 5:51 AM [facility] ALT 10 <=50 U/L 11/17/2022 5:51 AM [facility] GFR >60 >=60 mL/min/1.7 3 sq meter 11/17/2022 5:51 AM [facility] Comment:eGFR calculated with 2020 CKD-EPI equation. Vegetarian diet, extremely high or low muscle mass, and may affect results. Cystatin C with Glomerular Filtration Rate is a suitable alternative for these patients. ANION GAP 3(L) 9 - 20 mmol/L 11/17/2022 5:51 AM [facility] Blood Collection / Unknown 11/17/2022 4:30 AM [facility] 11/17/2022 5:31 AM [facility] Andre Mary [employer] CHEMISTRY ORDERABLES Fin al Result [facility] CLIA # [id number] [address] [place] [address] documented in this encounter Visit Diagnoses Not on filedocumented in this encounter Additional Health Concerns Infection Onset Date Last Indicated Resolved Time C Diff 11/17/2022 11/17/2022 01/16/2023 1:16 AM CDT documented as of this encounter Care Teams Retrimmer Relationship Specialty Start Date End Date Shant Ballesteros Jr., MD [address] [place] [address] PCP - General Family Practice 01/19/14 documented as of this encounter
--- OUTSIDE RECORDS SUMMARY | 2025-05-27 11:11 | XMS_ITS | Encounter Summary ---
Author Organization [employer] Address [address] [place] [address] Care Team Providers Care Dope House Operator Helper Name Role Phone Favian Maldonado MD, Shant Humphreys Primary Care Provider Encounter Details Date Type Department Care Team (Late st Contact Info) Description 11/25/2022 Lab Requisition [facility] Laboratory Services [address] [place] [address] Esther Sarmiento MD [address] [place] [address] Social History Tobacco Use Types Packs/Day Years Used Date Smoking Tobacco: Never Assessed Sex and Gender Information Value Date Recorded Sex Assigned at Not on file Legal Sex Male 9:45 AM MANAGER HOUSE Gender Identity Not on file Sexual Orientation Not on file documented as of this encounter Plan of Treatment Not on file documented as of this encounter Procedures Procedure Name Priority Date/Time Associated Diagnosis Comments BRAIN NATRIURETIC PEPTIDE, BNP OR PROBNP Routine 11/25/2022 1:40 AM MANAGER HOUSE documented in this encounter Results * (ABNORMAL) BRAIN NATRIURETIC PEPTIDE, BNP OR PROBNP (11/25/2022 1:40 AM MANAGER HOUSE) PROBNP, N TERMINAL 2,221(H) 0 - 125 pg/mL 11/25/2022 6:17 AM MANAGER HOUSE [facility] Blood Collection / Unknown 11/25/2022 1:40 AM MANAGER HOUSE 11/25/2022 6:02 AM MANAGER HOUSE Esther Sarmiento MD CHEMISTRY ORDERABLES Final Resul t Performing Organization Address City/State/[facility] Co de Phone Number [facility] # [id number] [address] [address] [place] [address] documented in this encounter Visit Diagnoses Not on filedocumented in this encounter Additional Health Concerns Infection Onset Date Last Indicated Resolved Time C Diff 11/17/2022 11/17/2022 01/16/2023 1:16 AM CDT documented as of this encounter Care Teams Dope House Operator Helper Relationship Specialty Start Date End Date Shant Ballesteros Jr., MD [address] [place] [address] PCP - General Family Practice 01/19/14 documented as of this encounter
--- OUTSIDE RECORDS SUMMARY | 2025-05-27 11:11 | XMS_ITS | Encounter Summary ---
Author Organization [employer] Address [address] [place] [address] Care Team Providers Care Decorating Consultant Name Role Phone Favian Maldonado MD, Shant Humphreys Primary Care Provider Encounter Details Date Type Department Care Team (Late st Contact Info) Description 11/21/2022 Lab Requisition [facility] Laboratory Services [address] [place] [address] [place] [address] Low Amaya, DO [address] [place] [phone] Social History Tobacco Use Types Packs/Day Years Used Date Smoking Tobacco: Never Assessed Sex and Gender Information Value Date Recorded Sex Assigned at Not on file Legal Sex Male 9:45 AM RELISH MAKER Gender Identity Not on file Sexual Orientation Not on file documented as of this encounter Plan of Treatment Not on file documented as of this encounter Procedures Procedure Name Priority Date/Time Associated Diagnosis Comments PHOSPHORUS Routine 11/21/2022 4:40 AM RELISH MAKER MAGNESIUM LEVEL Routine 11/21/2022 4:40 AM RELISH MAKER BASIC METABOLIC PANEL Routine 11/21/2022 4:40 AM RELISH MAKER documented in this encounter Results * MAGNESIUM LEVEL (11/21/2022 4:40 AM RELISH MAKER) MAGNESIUM 1.8 1.6 - 2.4 mg/dL 11/21/2022 5:26 AM RELISH MAKER [facility] Blood Collection / Unknown 11/21/2022 4:40 AM RELISH MAKER 11/21/2022 5:08 AM RELISH MAKER Low Amaya DO CHEMISTRY ORDERABLES Final R esult Performing Organization Address [facility]/ZIP Co de Phone Number [facility] CLIA # [id number] [address] [place] [address] * PHOSPHORUS (11/21/2022 4:40 AM RELISH MAKER) PHOSPHORUS 2.8 2.5 - 4.5 mg/dL 11/21/2022 5:26 AM [facility] Blood Collection / Unknown 11/21/2022 4:40 AM RELISH MAKER 11/21/2022 5:08 AM RELISH MAKER Low Amaya DO CHEMISTRY ORDERABLES Final R esult Performing Organization Address City/[facility]/ZIP Co de Phone Number [facility] CLIA # [id number] [address] [address] * (ABNORMAL) BASIC METABOLIC PANEL (11/21/2022 4:40 AM RELISH MAKER) SODIUM 145 136 - 145 mmol/L 11/21/2022 5:26 AM [facility] [employer] [facility] POTASSIUM 3.5 3.5 - 5.1 mmol/L 11/21/2022 5:26 AM [facility] CHLORIDE 106 98 - 107 mmol/L 11/21/2022 5:26 AM [facility] CO2 31(H) 22 - 29 mmol/L 11/21/2022 5:26 AM [facility] CALCIUM 9.3 8.8 - 10.2 mg/dL 11/21/2022 5:26 AM [facility] BUN 29(H) 8 - 23 mg/dL 11/21/2022 5:26 AM [facility] CREATININE 0.95 0.67 - 1.17 mg/dL 11/21/2022 5:26 AM [facility] GLUCOSE 136(H) 74 - 99 mg/dL 11/21/2022 5:26 AM [facility] GFR >60 >=60 mL/min/1.7 3 sq meter 11/21/2022 5:26 AM [facility] Comment:eGFR calculated with 2020 CKD-EPI equation. Vegetarian diet, extremely high or low muscle mass, and may affect results. Cystatin C with Glomerular Filtration Rate is a suitable alternative for these patients. ANION GAP 8(L) 9 - 20 mmol/L 11/21/2022 5:26 AM [facility] Blood Collection / Unknown 11/21/2022 4:40 AM RELISH MAKER 11/21/2022 5:08 AM RELISH MAKER Low Amaya DO CHEMISTRY ORDERABLES Final R esult [facility] CLIA # [id number] [address] [place] [address] documented in this encounter Visit Diagnoses Not on filedocumented in this encounter Additional Health Concerns Infection Onset Date Last Indicated Resolved Time C Diff 11/17/2022 11/17/2022 01/16/2023 1:16 AM CDT documented as of this encounter Care Teams Decorating Consultant Relationship Specialty Start Date End Date Shant Ballesteros Jr., MD [address] [place] [address] PCP - General Family Practice 01/19/14 documented as of this encounter
--- OUTSIDE RECORDS SUMMARY | 2025-05-27 11:11 | XMS_ITS | Encounter Summary ---
Author Organization [employer] Address [address] [place] [address] Care Team Providers Care Professor Of Family Medicine Name Role Phone Favian Maldonado MD, Shant Humphreys Primary Care Provider Encounter Details Date Type Department Care Team (Late st Contact Info) Description 11/28/2022 Lab Requisition [facility] Laboratory Services [address] [place] [address] Low Amaya, DO [address] [place] [address] Social History Tobacco Use Types Packs/Day Years Used Date Smoking Tobacco: Never Assessed Sex and Gender Information Value Date Recorded Sex Assigned at Not on file Legal Sex Male 9:45 AM COAL SHOOTER Gender Identity Not on file Sexual Orientation Not on file documented as of this encounter Plan of Treatment Not on file documented as of this encounter Visit Diagnoses Not on filedocumented in this encounter Additional Health Concerns Infection Onset Date Last Indicated Resolved Time C Diff 11/17/2022 11/17/2022 01/16/2023 1:16 AM CDT documented as of this encounter Care Teams Professor Of Family Medicine Relationship Specialty Start Date End Date Shant Ballesteros Jr., MD [address] [place] [address] PCP - General Family Practice 01/19/14 documented as of this encounter
--- OUTSIDE RECORDS SUMMARY | 2025-05-27 11:11 | XMS_ITS | Encounter Summary ---
Author Organization [employer] [facility] Address [address] [place] [address] Care Team Providers Care Anime Artist Name Role Phone Favian Maldonado MD, Shant Humphreys Primary Care Provider Encounter Details Date Type Department Care Team (Late st Contact Info) Description 11/24/2022 Lab Requisition [facility] Laboratory Services [address] [place] [address] [place] [address] Andre Mary, MADHU [address] [facility] [address] [place] [address] Social History Tobacco Use Types Packs/Day Years Used Date Smoking Tobacco: Never Assessed Sex and Gender Information Value Date Recorded Sex Assigned at Not on file Legal Sex Male 9:45 AM COUNTY AGRICULTURAL AGENT Gender Identity Not on file Sexual Orientation Not on file documented as of this encounter Plan of Treatment Not on file documented as of this encounter Procedures Procedure Name Priority Date/Time Associated Diagnosis Comments EXTRA TUBE (SST/GOLD) Routine 11/24/2022 7:12 PM COUNTY AGRICULTURAL AGENT LACTIC ACID Stat 11/24/2022 7:12 PM COUNTY AGRICULTURAL AGENT PROCALCITONIN Stat 11/24/2022 6:37 PM COUNTY AGRICULTURAL AGENT CBC WITH DIFFERENTIAL Stat 11/24/2022 6:37 PM COUNTY AGRICULTURAL AGENT BLOOD CULTURE Stat 11/24/2022 6:37 PM COUNTY AGRICULTURAL AGENT BLOOD CULTURE Stat 11/24/2022 6:37 PM COUNTY AGRICULTURAL AGENT COMPREHENSIVE METABOLIC PANEL Stat 11/24/2022 6:37 PM COUNTY AGRICULTURAL AGENT documented in this encounter Results * EXTRA TUBE (SST/GOLD) (11/24/2022 7:12 PM COUNTY AGRICULTURAL AGENT) Blood Collection / Unknown 11/24/2022 7:12 PM COUNTY AGRICULTURAL AGENT 11/24/2022 7:42 PM COUNTY AGRICULTURAL AGENT Andre Mary TERRAZZO LABORER CHEMISTRY ORDERABLES Fin al Result Performing Organization Address [facility] Co de Phone Number [facility] CLIA # [id number] [address] [place] [address] * LACTIC ACID (11/24/2022 7:12 PM COUNTY AGRICULTURAL AGENT) LACTIC ACID 1.0 <=2.0 mmol/L 11/24/2022 7:47 PM COUNTY AGRICULTURAL AGENT [facility] Blood Collection / Unknown 11/24/2022 7:12 PM COUNTY AGRICULTURAL AGENT 11/24/2022 7:25 PM COUNTY AGRICULTURAL AGENT Andre Mary TERRAZZO LABORER CHEMISTRY ORDERABLES Fin al Result Performing Organization Address [facility] Co de Phone Number [facility] CLIA # [id number] [address] [place] [address] * PROCALCITONIN (11/24/2022 6:37 PM COUNTY AGRICULTURAL AGENT) PROCALCITONIN 0.08 <=0.08 ng/mL 11/24/2022 8:08 PM COUNTY AGRICULTURAL AGENT [facility] Blood Collection / Unknown 11/24/2022 6:37 PM COUNTY AGRICULTURAL AGENT 11/24/2022 7:25 PM COUNTY AGRICULTURAL AGENT Narrative [facility] - 11/24/2022 8:08 PM COUNTY AGRICULTURAL AGENT The utility of procalcitonin is limited/NOT recommended [...] Fin al Result Performing Organization Address [facility]/ZIP Co de Phone Number [facility] CLIA # [id number] [address] [place], [place] [address] * BLOOD CULTURE (11/24/2022 6:37 PM COUNTY AGRICULTURAL AGENT) [facility] Signature BLOOD CULTURE No growth 11/29/2022 10:32 PM COUNTY AGRICULTURAL AGENT [facility] Blood Collection / Unknown 11/24/2022 6:37 PM COUNTY AGRICULTURAL AGENT 11/24/2022 7:25 PM COUNTY AGRICULTURAL AGENT Andre Mary NP MICROBIOLOGY - GENERAL O RDERABLES Final Result Performing Organization Address [facility] Co de Phone Number [facility] CLIA # [id number] [address] [place] [address] * BLOOD CULTURE (11/24/2022 6:37 PM COUNTY AGRICULTURAL AGENT) Pathologist [facility] BLOOD CULTURE No growth 11/29/2022 10:32 PM COUNTY AGRICULTURAL AGENT [facility] Blood Collection / Unknown 11/24/2022 6:37 PM COUNTY AGRICULTURAL AGENT 11/24/2022 7:25 PM COUNTY AGRICULTURAL AGENT Andre Mary NP MICROBIOLOGY - GENERAL O RDERABLES Final Result [facility] CLIA # [id number] [facility] [address] [address] [place] [address] * (ABNORMAL) CBC WITH DIFFERENTIAL (11/24/2022 6:37 PM COUNTY AGRICULTURAL AGENT) [facility] WBC 8.1 4.8 - 10.8 K/uL 11/24/2022 7:42 PM [facility] RBC 2.66(L) 4.60 - 6.20 M/uL 11/24/2022 7:42 PM [facility] HEMOGLOBIN 7.9(L) 14.0 - 18.0 g/dL 11/24/2022 7:42 PM [facility] HEMATOCRIT 27.6(L) 41.0 - 53.0 % 11/24/2022 7:42 PM [facility] MCV 103.8(H) 84.0 - 103.0 fL 11/24/2022 7:42 PM [facility] MCH 29.7 27.0 - 34.0 pg 11/24/2022 7:42 PM [facility] MCHC 28.6(L) 30.0 - 35.0 g/dL 11/24/2022 7:42 PM [facility] RDW 18.6(H) 11.0 - 14.5 % 11/24/2022 7:42 PM [facility] RDW-STDEV 69.4(H) 37.0 - 54.0 fL 11/24/2022 7:42 PM [facility] PLATELETS 248 140 - 440 K/uL 11/24/2022 7:42 PM [facility] MPV 10.3 8.9 - 12.8 fL 11/24/2022 7:42 PM [facility] NEUTROPHILS 73 42 - 75 % 11/24/2022 7:42 PM [facility] LYMPHOCYTES 11(L) 24 - 44 % 11/24/2022 7:42 PM [facility] MONOCYTES 13(H) 2 - 10 % 11/24/2022 7:42 PM [facility] EOSINOPHILS 3 0 - 7 % 11/24/2022 7:42 PM [facility] BASOPHILS 0 0 - 1 % 11/24/2022 7:42 PM [facility] IMMATURE GRANULOCYTES 1 0 - 2 % 11/24/2022 7:42 PM [facility] NEUTROPHIL ABSOLUTE 5.86 2.00 - 8.00 K/uL 11/24/2022 7:42 PM [facility] LYMPHOCYTE ABSOLUTE 0.87(L) 1.20 - 4.00 K/uL 11/24/2022 7:42 PM [facility] MONOCYTE ABSOLUTE 1.02(H) 0.10 - 0.60 K/uL 11/24/2022 7:42 PM [facility] EOSINOPHIL ABSOLUTE 0.21 0.00 - 0.70 K/uL 11/24/2022 7:42 PM [facility] BASOPHILS ABSOLUTE 0.03 0.00 - 0.20 K/uL 11/24/2022 7:42 PM [facility] IMMATURE GRANULOCYTES ABSOLUTE 0.07 0.00 - 0.10 K/uL 11/24/2022 7:42 PM [facility] Blood Collection / Unknown 11/24/2022 6:37 PM COUNTY AGRICULTURAL AGENT 11/24/2022 7:25 PM COUNTY AGRICULTURAL AGENT Andre Mary NP HEMATOLOGY ORDERABLES Fi nal Result [facility] CLIA # [id number] [address] [address] [place] [address] * (ABNORMAL) COMPREHENSIVE METABOLIC PANEL (11/24/2022 6:37 PM [facility]) SODIUM 144 136 - 145 mmol/L 11/24/2022 8:06 PM [facility] POTASSIUM 4.6 3.5 - 5.1 mmol/L 11/24/2022 8:06 PM [facility] CHLORIDE 105 98 - 107 mmol/L 11/24/2022 8:06 PM [facility] CO2 28 22 - 29 mmol/L 11/24/2022 8:06 PM [facility] CALCIUM 9.4 8.8 - 10.2 mg/dL 11/24/2022 8:06 PM [facility] BUN 42(H) 8 - 23 mg/dL 11/24/2022 8:06 PM [facility] CREATININE 1.50(H) 0.67 - 1.17 mg/dL 11/24/2022 8:06 PM [facility] GLUCOSE 102(H) 74 - 99 mg/dL 11/24/2022 8:06 PM [facility] TOTAL PROTEIN 6.5 6.4 - 8.3 g/dL 11/24/2022 8:06 PM [facility] ALBUMIN 2.9(L) 3.5 - 5.2 g/dL 11/24/2022 8:06 PM [facility] BILIRUBIN TOTAL 0.4 0.2 - 1.0 mg/dL 11/24/2022 8:06 PM [facility] ALKALINE PHOSPHATASE 88 40 - 129 U/L 11/24/2022 8:06 PM [facility] AST 12 10 - 50 U/L 11/24/2022 8:06 PM [facility] ALT 9 <=50 U/L 11/24/2022 8:06 PM [facility] GFR 51(L) >=60 mL/min/1. 73 sq meter 11/24/2022 8:06 PM COUNTY AGRICULTURAL AGENT [facility] Comment:eGFR calculated with 2020 CKD-EPI equation. Vegetarian diet, extremely high or low muscle mass, and may affect results. Cystatin C with Glomerular Filtration Rate is a suitable alternative for these patients. ANION GAP 11 9 - 20 mmol/L 11/24/2022 8:06 PM COUNTY AGRICULTURAL AGENT [facility] Blood Collection / Unknown 11/24/2022 6:37 PM COUNTY AGRICULTURAL AGENT 11/24/2022 7:25 PM COUNTY AGRICULTURAL AGENT us Andre Mary TERRAZZO LABORER CHEMISTRY ORDERABLES Fin al Result [facility] CLIA # [id number] [facility] [address] documented in this encounter Visit Diagnoses Not on filedocumented in this encounter Additional Health Concerns Infection Onset Date Last Indicated Resolved Time C Diff 11/17/2022 11/17/2022 01/16/2023 1:16 AM CDT documented as of this encounter Care Teams Anime Artist Relationship Specialty Start Date End Date Shant Ballesteros Jr., MD [address] [place] [address] PCP - General Family Practice 01/19/14 documented as of this encounter
--- OUTSIDE RECORDS SUMMARY | 2025-05-27 11:11 | XMS_ITS | Encounter Summary ---
Author Organization [employer] Address [address] [place] [address] Care Team Providers Care Adjunct Psychology Faculty Member Name Role Phone Favian Maldonado MD, Shant Humphreys Primary Care Provider Encounter Details Date Type Department Care Team (Late st Contact Info) Description 11/23/2022 Lab Requisition [facility] Laboratory Services [address] [place] [address] Low Amaya, DO [address] [place] [phone] Social History Tobacco Use Types Packs/Day Years Used Date Smoking Tobacco: Never Assessed Sex and Gender Information Value Date Recorded Sex Assigned at Not on file Legal Sex Male 9:45 AM NATURAL RESOURCES ENGINEER Gender Identity Not on file Sexual Orientation Not on file documented as of this encounter Plan of Treatment Not on file documented as of this encounter Procedures Procedure Name Priority Date/Time Associated Diagnosis Comments PHOSPHORUS Routine 11/23/2022 4:30 AM NATURAL RESOURCES ENGINEER MAGNESIUM LEVEL Routine 11/23/2022 4:30 AM NATURAL RESOURCES ENGINEER BASIC METABOLIC PANEL Routine 11/23/2022 4:30 AM NATURAL RESOURCES ENGINEER documented in this encounter Results * PHOSPHORUS (11/23/2022 4:30 AM NATURAL RESOURCES ENGINEER) PHOSPHORUS 4.1 2.5 - 4.5 mg/dL 11/23/2022 6:08 AM NATURAL RESOURCES ENGINEER [facility] Blood Collection / Unknown 11/23/2022 4:30 AM NATURAL RESOURCES ENGINEER 11/23/2022 5:49 AM NATURAL RESOURCES ENGINEER Low Amaya DO CHEMISTRY ORDERABLES Final R [facility] Performing Organization Address [facility]/ZIP Co de Phone Number [facility] CLIA # [id number] [address] [facility] [place] [address] * MAGNESIUM LEVEL (11/23/2022 4:30 AM NATURAL RESOURCES ENGINEER) MAGNESIUM 1.9 1.6 - 2.4 mg/dL 11/23/2022 6:08 AM [facility] Blood Collection / Unknown 11/23/2022 4:30 AM NATURAL RESOURCES ENGINEER 11/23/2022 5:49 AM NATURAL RESOURCES ENGINEER Low Amaya DO CHEMISTRY ORDERABLES Final R esult Performing Organization Address [facility] Co de Phone Number [facility] CLIA # [id number] [address] [address] * (ABNORMAL) BASIC METABOLIC PANEL (11/23/2022 4:30 AM NATURAL RESOURCES ENGINEER) SODIUM 142 136 - 145 mmol/L 11/23/2022 6:[address] [facility] [email or web address] [facility] POTASSIUM 4.3 3.5 - 5.1 mmol/L 11/23/2022 6:[address] [facility] [email or web address] [facility] Comment:Slightly hemolyzed. Result may be falsely elevated. CHLORIDE 104 98 - 107 mmol/L 11/23/2022 6:08 AM [facility] CO2 30(H) 22 - 29 mmol/L 11/23/2022 6:08 AM [facility] CALCIUM 9.5 8.8 - 10.2 mg/dL 11/23/2022 6:08 AM [facility] BUN 25(H) 8 - 23 mg/dL 11/23/2022 6:08 AM [facility] CREATININE 0.92 0.67 - 1.17 mg/dL 11/23/2022 6:08 AM [facility] GLUCOSE 135(H) 74 - 99 mg/dL 11/23/2022 6:08 AM [facility] GFR >60 >=60 mL/min/1.7 3 sq meter 11/23/2022 6:08 AM [facility] Comment:eGFR calculated with 2020 CKD-EPI equation. Vegetarian diet, extremely high or low muscle mass, and may affect results. Cystatin C with Glomerular Filtration Rate is a suitable alternative for these patients. ANION GAP 8(L) 9 - 20 mmol/L 11/23/2022 6:08 AM [facility] Blood Collection / Unknown 11/23/2022 4:30 AM NATURAL RESOURCES ENGINEER 11/23/2022 5:49 AM NATURAL RESOURCES ENGINEER Low Amaya DO CHEMISTRY ORDERABLES Final R esult [facility] CLIA # [id number] [address] [place] [address] documented in this encounter Visit Diagnoses Not on filedocumented in this encounter Additional Health Concerns Infection Onset Date Last Indicated Resolved Time C Diff 11/17/2022 11/17/2022 01/16/2023 1:16 AM CDT documented as of this encounter Care Teams Adjunct Psychology Faculty Member Relationship Specialty Start Date End Date Shant Ballesteros Jr., MD [address] [place] [address] PCP - General Family Practice 01/19/14 documented as of this encounter
--- OUTSIDE RECORDS SUMMARY | 2025-05-27 11:11 | XMS_ITS | Encounter Summary ---
Author Organization [facility] Address [address] [place] [address] Care Team Providers Care Center Machine Set Up Operator Name Role Phone Favian Maldonado MD, Shant Humphreys Primary Care Provider Encounter Details Date Type Department Care Team (Late st Contact Info) Description 11/09/2022 Lab Requisition [facility] Laboratory Services [address] [place] [address] Soni Jeffery MD [address] [place] [address] Social History Tobacco Use Types Packs/Day Years Used Date Smoking Tobacco: Never Assessed Sex and Gender Information Value Date Recorded Sex Assigned at Not on file Legal Sex Male 9:45 AM HELICOPTER PILOT INSTRUCTOR Gender Identity Not on file Sexual Orientation Not on file documented as of this encounter Plan of Treatment Not on file documented as of this encounter Procedures Procedure Name Priority Date/Time Associated Diagnosis Comments CBC WITH DIFFERENTIAL Routine 11/09/2022 6:15 PM HELICOPTER PILOT INSTRUCTOR BASIC METABOLIC PANEL Routine 11/09/2022 6:15 PM HELICOPTER PILOT INSTRUCTOR documented in this encounter Results * (ABNORMAL) CBC WITH DIFFERENTIAL (11/09/2022 6:15 PM HELICOPTER PILOT INSTRUCTOR) [facility] WBC 7.2 4.8 - 10.8 K/uL 11/09/2022 7:07 PM HELICOPTER PILOT INSTRUCTOR [facility] RBC 2.78(L) 4.60 - 6.20 M/uL 11/09/2022 7:07 PM [facility] HEMOGLOBIN 8.0(L) 14.0 - 18.0 g/dL 11/09/2022 7:07 PM [facility] HEMATOCRIT 27.5(L) 41.0 - 53.0 % 11/09/2022 7:07 PM [facility] MCV 98.9 84.0 - 103.0 fL 11/09/2022 7:07 PM [facility] MCH 28.8 27.0 - 34.0 pg 11/09/2022 7:07 PM [facility] MCHC 29.1(L) 30.0 - 35.0 g/dL 11/09/2022 7:07 PM [facility] RDW 15.9(H) 11.0 - 14.5 % 11/09/2022 7:07 PM [facility] RDW-STDEV 57.7(H) 37.0 - 54.0 fL 11/09/2022 7:07 PM [facility] PLATELETS 250 140 - 440 K/uL 11/09/2022 7:07 PM [facility] MPV 10.9 8.9 - 12.8 fL 11/09/2022 7:07 PM [facility] NEUTROPHILS 65 42 - 75 % 11/09/2022 7:07 PM [facility] LYMPHOCYTES 11(L) 24 - 44 % 11/09/2022 7:07 PM [facility] MONOCYTES 17(H) 2 - 10 % 11/09/2022 7:07 PM [facility] EOSINOPHILS 6 0 - 7 % 11/09/2022 7:07 PM [facility] BASOPHILS 1 0 - 1 % 11/09/2022 7:07 PM [facility] IMMATURE GRANULOCYTES 1 0 - 2 % 11/09/2022 7:07 PM [facility] NEUTROPHIL ABSOLUTE 4.64 2.00 - 8.00 K/uL 11/09/2022 7:07 PM [facility] LYMPHOCYTE ABSOLUTE 0.79(L) 1.20 - 4.00 K/uL 11/09/2022 7:07 PM [facility] MONOCYTE ABSOLUTE 1.19(H) 0.10 - 0.60 K/uL 11/09/2022 7:07 PM [facility] EOSINOPHIL ABSOLUTE 0.42 0.00 - 0.70 K/uL 11/09/2022 7:07 PM [facility] BASOPHILS ABSOLUTE 0.04 0.00 - 0.20 K/uL 11/09/2022 7:07 PM [facility] IMMATURE GRANULOCYTES ABSOLUTE 0.08 0.00 - 0.10 K/uL 11/09/2022 7:07 PM [facility] Blood Collection / Unknown 11/09/2022 6:15 PM HELICOPTER PILOT INSTRUCTOR 11/09/2022 7:03 PM [facility] Soni Jeffery MD HEMATOLOGY ORDERABLES Final Resu lt [facility] CLIA # [id number] [facility] [address] * (ABNORMAL) BASIC METABOLIC PANEL (11/09/2022 6:15 PM HELICOPTER PILOT INSTRUCTOR) SODIUM 140 136 - 145 mmol/L 11/09/2022 7:39 PM [facility] POTASSIUM 4.8 3.5 - 5.1 mmol/L 11/09/2022 7:39 PM [facility] CHLORIDE 106 98 - 107 mmol/L 11/09/2022 7:39 PM [facility] CO2 26 22 - 29 mmol/L 11/09/2022 7:39 PM [facility] CALCIUM 8.6(L) 8.8 - 10.2 mg/dL 11/09/2022 7:39 PM [facility] BUN 22 8 - 23 mg/dL 11/09/2022 7:39 PM [facility] CREATININE 1.15 0.67 - 1.17 mg/dL 11/09/2022 7:39 PM [facility] GLUCOSE 121(H) 74 - 99 mg/dL 11/09/2022 7:39 PM HELICOPTER PILOT INSTRUCTOR [facility] GFR >60 >=60 mL/min/1.7 3 sq meter 11/09/2022 7:39 PM [facility] Comment:eGFR calculated with 2020 CKD-EPI equation. Vegetarian diet, extremely high or low muscle mass, and may affect results. Cystatin C with Glomerular Filtration Rate is a suitable alternative for these patients. ANION GAP 8(L) 9 - 20 mmol/L 11/09/2022 7:39 PM [facility] Blood Collection / Unknown 11/09/2022 6:15 PM HELICOPTER PILOT INSTRUCTOR 11/09/2022 7:03 PM HELICOPTER PILOT INSTRUCTOR Soni Jeffery MD CHEMISTRY ORDERABLES Final Resul t Performing Organization Address City/State/[facility] Co de Phone Number [facility] CLIA # [id number] [facility] [address] documented in this encounter Visit Diagnoses Not on filedocumented in this encounter Additional Health Concerns Infection Onset Date Last Indicated Resolved Time C Diff 11/17/2022 11/17/2022 01/16/2023 1:16 AM CDT documented as of this encounter Care Teams Center Machine Set Up Operator Relationship Specialty Start Date End Date Shant Ballesteros Jr., MD [address] [place] [address] PCP - General Family Practice 01/19/14 documented as of this encounter
--- NOTE | 2025-05-27 11:22 | W.ED.NAVMDI ---
HPI - Nausea/Vomiting/Diarrhea General: Chief complaint: Nausea/Vomiting/Diarrhea Stated complaint: vomitting History of Present Illness: 70-year-old male presents emergency room with constant vomiting for the last 2+ days. Patient has a known history of colon cancer with metastasis to the liver and to the lung. He has not been able to keep any of his medications 77 palpitations and racing heart rate has not been able to take his amiodarone or digoxin. He has a known history of atrial fibrillation he is not having any chest pain at this time does have abdominal pain for the frequent vomiting. Denies any hematemesis coffee-ground emesis. He is usually seen at [facility] in [place] for his oncology care. Associated nausea: Yes Associated symtoms: Reports nausea and palpitations; Denies chest pain or dysuria Related Data Home Medications ?Medication ?Instructions ?Recorded ?Confirmed saw palmetto 500 mg capsule 500 mg PO DAILY 11/15/20 05/28/25 gabapentin 300 mg capsule 300 mg PO TID PRN nerve pain 02/04/23 05/28/25 albuterol sulfate 90 mcg/actuation 2 puff inhalation Q4H PRN 10/08/24 05/28/25 aerosol inhaler Shortness Of Breath digoxin 125 mcg (0.125 mg) tablet 0.125 mg PO DAILY 10/08/24 05/28/25 epinephrine 0.3 mg/0.3 mL See Rx Instructions .Route .COMPLEX 10/08/24 05/28/25 injection, auto-injector oxycodone 10 mg tablet 10 mg PO Q6H PRN Pain 10/08/24 05/28/25 vancomycin 125 mg capsule 125 mg PO DAILY 12/04/24 05/28/25 clobetasol 0.05 % topical cream 1 applic topical BID PRN hands 02/09/25 05/28/25 testosterone 3 pump topical DAILY 02/09/25 05/28/25 allopurinol 300 mg tablet 300 mg PO DAILY 04/14/25 05/28/25 fruquintinib 5 mg capsule See Rx Instructions .Route .COMPLEX 04/14/25 05/28/25 (Fruzaqla) metoprolol tartrate 25 mg tablet 25 mg PO Q12H 04/14/25 05/28/25 midodrine 5 mg tablet See Rx Instructions .Route .COMPLEX 04/14/25 05/28/25 sucralfate 1 gram tablet 1 g PO BID 04/14/25 05/28/25 Previous Rx's ?Medication ?Instructions ?Recorded pantoprazole 40 mg tablet,delayed 40 mg PO QAM #60 tabs 02/12/25 release (Protonix) amiodarone 200 mg tablet 200 mg PO DAILY #30 tabs 03/11/25 aspirin 81 mg tablet,delayed 81 mg PO DAILY #30 tabs 03/11/25 release atorvastatin 40 mg tablet 40 mg PO BEDTIME #30 tabs 03/11/25 divalproex 500 mg tablet,delayed 500 mg PO TID #30 tabs 03/11/25 release (Depakote) trazodone 150 mg tablet 150 mg PO BEDTIME #30 tabs 03/11/25 hydrocodone 5 mg-acetaminophen 325 1 tab PO BID PRN pain #14 tabs 05/22/25 mg tablet Allergies Allergy/AdvReac Type Severity Reaction Status Date / Time apixaban Allergy Unknown Headaches Verified 05/28/25 06:42 blackberry Allergy Unknown ADR-Diarrhe Verified 05/28/25 06:42 a blueberry Allergy Unknown ADR-Diarrhe Verified 05/28/25 06:42 a egg Allergy Unknown DIARRHEA, Verified 05/28/25 06:42 VOMITING AND STOMACH CRAMPING raspberry Allergy Unknown ADR-Diarrhe Verified 05/28/25 06:42 a strawberry Allergy Unknown ADR-Diarrhe Verified 05/28/25 06:42 a tomato Allergy Unknown ADR-Gastrointestinal Verified 05/28/25 06:42 Upset oats Allergy DIARRHEA Verified 05/28/25 06:42 Opioids - Morphine Analogues Allergy ADR-Chest Verified 05/28/25 06:42 Pain caffeine AdvReac Unknown PALPITATION Verified 05/28/25 06:42 S apple AdvReac DIARRHEA, Verified 05/28/25 06:42 VOMITING AND CRAMPING meperidine (From Demerol) AdvReac EXCESSIVE Verified 05/28/25 06:42 SEDATION morphine AdvReac HALLUCINATI Verified 05/28/25 06:42 ONS Review of Systems Const: Denies: fever(s) or chills Card: Reports: palpitations and irregular heart rhythm; Denies: chest pain Resp: Denies: dyspnea GI: Reports: abdominal pain, nausea and vomiting; Denies: hematemesis, coffee ground emesis, hematochezia or melena : Denies: dysuria, urinary frequency or urinary urgency Musc: Denies: neck pain or back pain Skin/Breast: Denies: rash PFSH ED PFSH: Medical History Hydrops of gallbladder Atrial fibrillation with rapid ventricular response Elevated troponin Hypotension Orthostatic hypotension Complication of ostomy Ventilator dependent Intra-abdominal abscess post-procedure Metastatic colon cancer to liver Malignant neoplasm of splenic flexure Renal hematoma Colostomy complication C. 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 (~08/2022) hospitalized in [place] Chronic sinusitis of both maxillary sinuses Gout Asperger syndrome mild Dyslipidemia Degenerative joint disease (DJD) of lumbar spine Obstructive sleep apnea Chronic low back pain Substernal goiter Asthma Restrictive lung disease due to kyphoscoliosis Suspected exposure to asbestos Allergies Right renal stone Testosterone deficiency On TRT for 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 Erectile dysfunction Opioid contract exists previous Chronic pain syndrome Surgical History Hx of bilateral cataract extraction History of colostomy (11/01/22) Colostomy revision for control of bleeding History of exploratory laparotomy (10/15/22) Exploratory laparotomy with partial colon resection and with end colostomy formation Status post left hemicolectomy (10/08/22) laparoscopic converted to open, with splenic flexure takedown and right colon mobilization, primary anastamosis History of back surgery History of shoulder surgery History of appendectomy H/O arthroscopic knee surgery H/O ankle fusion H/O wrist surgery S/P ureteral stent placement Family History Grandfather CAD (coronary artery disease) Family/Other Cancer Grandmother Dementia Stroke Mother Lung disease Other Hypertension Denies family history of Rheumatoid arthritis Diabetes Lupus Clotting disorder Hyperlipidemia Chronic kidney disease (CKD) Suicide Anesthesia complication Bleeding disorder Social History Smoking and tobacco/nicotine status: former use of tobacco/nicotine Quit status (tobacco/nicotine): has quit using Year quit tobacco: 1976 [id number] Second hand smoke exposure: Yes Alcohol intake: never Substance/Drug Use: never Lives independently: Yes Current occupational status: retired Pets and animals: Yes Do you think of yourself as: Straight/Heterosexual Current gender identity: Male Physical Exam Const: GENERAL APPEARANCE: cooperative ORIENTATION/CONSCIOUSNESS: Yes awake, Yes oriented to person, Yes oriented to place and Yes oriented to time HENMT: COMMON NORMALS: normocephalic, atraumatic and hearing grossly normal bilaterally HEAD & SCALP: normocephalic and atraumatic Resp: COMMON NORMALS: normal respiratory effort, No retractions, No use of accessory muscles and clear to auscultation bilaterally AUSCULTATION: clear to auscultation bilaterally Cardio: COMMON NORMALS: No murmurs present (Cardio) RATE: tachycardic RHYTHM: abnormal rhythm irregularly irregular GI: COMMON NORMALS: No hepatosplenomegaly present INSPECTION: Yes abdominal distension AUSCULTATION: Yes Hypoactive bowel sounds present PALPATION: Yes Tenderness to palpation present (GI), No Guarding due to palpation present (GI) and Yes No hepatosplenomegaly present Extremity: COMMON NORMALS: normal to inspection, capillary refill normal, no clubbing, cyanosis or edema, no calf tenderness and no pedal edema Neuro: SENSORIUM/ORIENTATION: Yes oriented to person, Yes oriented to place and Yes oriented to time Skin: COMMON NORMALS: no rashes or lesions noted GENERAL SKIN EXAM: no rashes or lesions noted Course Vital Signs: Vital signs: Vital Signs Temperature 98.4 F 05/27/25 11:04 Pulse Rate 71 05/30/25 09:30 Respiratory Rate 18 05/30/25 09:30 Blood Pressure 140/78 05/30/25 09:30 Pulse Oximetry 100 05/30/25 09:30 Oxygen Delivery Me thod Nasal Cannula 05/30/25 04:36 Oxygen Flow Rate 2 05/30/25 04:36 MDM - Nausea/Vomiting/Diarrhea Medical Decision Making Patient has bowel obstruction on CT. NG placed discussed with oncology at [facility]. They will accept him in transfer they do advise it may be a bit. He was started on amiodarone to control his heart rate because he has been on it previously we do not load him to started on the drip at 1 we are able to titrate him down to a half. His digoxin level is at 0.8. 05/28/2025 Assumed care again this morning patient remains stable titrate his amiodarone off start digoxin 0.125 IV daily. Consult hospitalist group for medical management. Will also contact [facility] again to see if they have a [facility] for bed assignment for this patient. Dr. Ness is seeing the patient. Care signed out to Dr. Hawthorne at change of shift. Lab Data 05/30/25 04:07 05/30/25 04:07 Radiology Impressions Abdomen/Pelvis CT 05/27/25 11:34 IMPRESSION: 1. Similar-appearing RIGHT hepatic metastasis. 2. Air-fluid level in the stomach with fluid distention. A few loops of enhancing slightly dilated loops of small bowel in the LEFT upper quadrant and pelvis can be seen with small bowel enteritis or early partial obstruction. 3. Partial colectomy with colostomy in the RIGHT lower quadrant which appears patent. 4. Prostate enlargement with heterogeneous enhancement. Recommend correlation PSA. 5. No other significant changes compared to the recent study 05/05/2025 Chest X-Ray 05/28/25 13:12 IMPRESSION: 1. Unchanged position of the NG tube, with the tip in the left upper quadrant. The tube likely overlies the body of the stomach. 2. No acute disease otherwise noted in the chest. Abdomen X-Ray 05/30/25 06:50 IMPRESSION: Nonspecific abdominal findings. No convincing evidence of bowel obstruction on this portable radiograph. Laboratory Results WBC 6.64 10^3/uL (3.29-11.43) 05/30/25 04:07 RBC 3.37 10^6/uL (3.85-5.65) L 05/30/25 04:07 Hgb 10.30 g/dL (11.27-16.99) L 05/30/25 04:07 Hct 32.7 % (37-53) L 05/30/25 04:07 MCV 97.0 fl (82-101) 05/30/25 04:07 MCH 30.6 pg (27-33) 05/30/25 04:07 MCHC 31.5 g/dL (30-55) 05/30/25 04:07 RDW 15.3 % (12.1-15.1) H 05/30/25 04:07 Plt Count 209 10^3/cmm (157-399) 05/30/25 04:07 MPV 9.9 fL (7.4-10.4) 05/30/25 04:07 Neut % (Auto) 68.7 % 05/30/25 04:07 Lymph % (Auto) 15.7 % 05/30/25 04:07 [place] % (Auto) 8.9 % 05/30/25 04:07 Eos % (Auto) 5.6 % 05/30/25 04:07 Baso % (Auto) 0.5 % 05/30/25 04:07 Neut # (Auto) 4.57 10^3/uL (1.8-7.7) 05/30/25 04:07 Lymph # (Auto) 1.0 10^3/uL (0.8-4.8) 05/30/25 04:07 [place] # (Auto) 0.6 10^3/uL (0.2-0.9) 05/30/25 04:07 Eos # (Auto) 0.4 10^3/uL (0.0-0.8) 05/30/25 04:07 Baso # (Auto) 0.0 10^3/uL (0.0-0.1) 05/30/25 04:07 Nucleated RBC % (auto) 0 % 05/30/25 04:07 Nucleated RBCs # 0.0 /100WBC 05/30/25 04:07 Sodium 135 mmol/L (136-145) L 05/30/25 04:07 Potassium 4.5 mmol/L (3.5-5.1) 05/30/25 04:07 Chloride 100 mmol/L (98-107) 05/30/25 04:07 Carbon Dioxide 22 mmol/L (22-29) 05/30/25 04:07 Anion Gap 17.5 (5-19) 05/30/25 04:07 BUN 14 mg/dL (8-23) 05/30/25 04:07 Creatinine 0.7 mg/dL (0.7-1.2) 05/30/25 04:07 GFR Calculation 111.5 mL/min (90-130) 05/30/25 04:07 Glucose 84 mg/dL (65-115) 05/30/25 04:07 Calculated Osmolality 280 mOsm/kg (285-295) L 05/30/25 04:07 Calcium 9.2 mg/dL (8.5-10.5) 05/30/25 04:07 Magnesium 2.1 mg/dL (1.7-2.3) 05/28/25 13:22 Total Bilirubin 0.5 mg/dL (0.15-1.2) 05/30/25 04:07 AST 24 U/L (0-40) 05/30/25 04:07 ALT 17 U/L (0-41) 05/30/25 04:07 Alkaline Phosphatase 91 U/L (40-130) 05/30/25 04:07 Total Protein 6.5 g/dL (6.6-8.7) L 05/30/25 04:07 Albumin 3.0 g/dL (3.5-5.2) L 05/30/25 04:07 Globulin 3.5 g/dL (1.3-4.6) 05/30/25 04:07 Lipase 62 U/L (13-60) H 05/27/25 11:20 Urine Color Yellow (Yellow) 05/27/25 14:48 Urine Appearance Clear (CLEAR) 05/27/25 14:48 Urine pH 6.5 (5-7) 05/27/25 14:48 Ur Specific [place] 1.087 (1.005-1.030) H 05/27/25 14:48 Urine Protein 1+ (Negative) A 05/27/25 14:48 Urine Glucose (UA) Negative (Normal) 05/27/25 14:48 Urine Ketones Trace (Negative) 05/27/25 14:48 Urine Blood Negative (Negative) 05/27/25 14:48 Urine Nitrate Negative (Negative) 05/27/25 14:48 Urine Bilirubin Negative (Negative) 05/27/25 14:48 Urine Urobilinogen 1.0 mg/dL (Negative) 05/27/25 14:48 Ur Leukocyte Esterase Negative (Negative) 05/27/25 14:48 Urine RBC 0-2 /hpf (0-2) 05/27/25 14:48 Urine WBC 0-5 /hpf (0-5) 05/27/25 14:48 Ur Squamous Epith Cells 0-5 /hpf (0-5) 05/27/25 14:48 Amorphous Sediment Not Reportable 05/27/25 14:48 Urine Bacteria None seen /hpf (NONE) 05/27/25 14:48 Hyaline Casts 0.40 /lpf 05/27/25 14:48 Digoxin 0.8 ng/mL (0.6-1.2) 05/27/25 11:30 C. difficile (PCR) Negative (Negative) 05/29/25 21:32 All radiology interpretation(s) finalized by discharge Discharge Plan Discharge Admit Provider: Merline Aguilar Condition: Stable Coding Level of Care Code ED Health Diagnostics Teacher for [facility]
--- NOTE | 2025-05-27 11:28 | PC.NURSE ---
PT OXYGEN AT 83% ON ROOM AIR. PT PLACED ON 3L NASAL CANNULA BY THIS NURSE. OXYGEN SATURATION AFTER OXYGEN ADMINISTRATION 96%.
--- NOTE | 2025-05-27 11:34 | CT_ITS ---
WS: [id number] CT ABDOMEN PELVIS TECHNIQUE: Contrast-enhanced CT of the abdomen and pelvis with coronal and sagittal reformatted images. CLINICAL INFORMATION: abd pain COMPARISON: None. DLP: 1023.[address] scans at [facility] use at least one of these dose optimization techniques: automated exposure control; mA and/or kV adjustment per patient size (includes targeted exams where dose is matched to clinical indication); or iterative reconstruction. FINDINGS: Prior postoperative changes partial colectomy with a RIGHT lower quadrant colostomy. No obstruction. Similar appearing known hepatic metastatic disease involving the RIGHT hepatic lobe similar to the most recent studies. Gallbladder is normal in appearance. Portal vein and splenic vein appear patent. Celiac and SMA are patent. Normal adrenal glands. 6 stable subcapsular RIGHT perinephric collection posterior RIGHT kidney similar in appearance. Mild aortic calcification. Mild prostate enlargement. Fat-containing LEFT inguinal hernia. Scoliosis with prior thoracolumbar fusion. Previously described 5 mm noncalcified nodule RIGHT lower lobe not included on the study. Fluid distended stomach with air-fluid level. Few loops of fluid-filled small bowel with air-fluid levels in the LEFT upper quadrant and pelvis: No evidence of high-grade obstruction. CT/CT abdomen pelvis w con* [id number] IMPRESSION: 1. Similar-appearing RIGHT hepatic metastasis. 2. Air-fluid level in the stomach with fluid distention. A few loops of enhanc ing slightly dilated loops of small bowel in the LEFT upper quadrant and pelvis can be seen with small bowel enteritis or early partial obstruction. 3. Partial colectomy with colostomy in the RIGHT lower quadrant which appears patent. 4. Prostate enlargement with heterogeneous enhancement. Recommend correlation PSA. 5. No other significant changes compared to the recent study 05/05/2025
--- NOTE | 2025-05-27 11:34 | XR_ITS ---
WS: [id number] Exam: XR chest 1V portable [id number] Date/Time of Exam: 05/27/2025 11:34 AM Reason For Exam: dyspnea/cough Comparison 05/05/2025. Lungs are clear and fully inflated. Unremarkable cardiomediastinal silhouette. Right-sided central line ends at the cavoatrial junction. Marr rods and wire sutures noted in the T-spine. XR/XR chest 1V portable [id number] IMPRESSION: 1. No acute cardiopulmonary finding.
[2025-05-27 11:38] LABS: Hematocrit 44.8 % (37-53); Hemoglobin 14.20 g/dL (11.27-16.99); Mean Corpuscular HGB Conc 31.7 g/dL (30-55); Mean Corpuscular Hemoglobin 29.5 pg (27-33); Mean Corpuscular Volume 92.9 fl (82-101); Nucleated Red Blood Cells % 0 %; Platelet Count 363 10^3/cmm (157-399); Red Blood Count 4.82 10^6/uL (3.85-5.65); White Blood Count 12.07 10^3/uL (3.29-11.43)
[2025-05-27 11:56] LABS: Alanine Aminotransferase 24 U/L (0-41); Albumin Level 4.1 g/dL (3.5-5.2); Alkaline Phosphatase 124 U/L (40-130); Anion Gap 27.1 (5-19); Aspartate Amino Transferase 35 U/L (0-40); Blood Urea Nitrogen 38 mg/dL (8-23); Calcium 10.8 mg/dL (8.5-10.5); Carbon Dioxide 23 mmol/L (22-29); Chloride 91 mmol/L (98-107); Creatinine Clr Calc Pharmacy 58.6566; Globulin 4.6 g/dL (1.3-4.6); Glucose 189 mg/dL (65-115); Lipase 62 U/L (13-60); Osmolality Calculated 298 mOsm/kg (285-295); Potassium 4.1 mmol/L (3.5-5.1); Sodium 137 mmol/L (136-145); Total Protein 8.7 g/dL (6.6-8.7)
[2025-05-27 11:57] LABS: Digoxin 0.8 ng/mL (0.6-1.2)
[2025-05-27] MEDS: iohexol 350 mg/mL 500 mL Btl (per mL) IV (12:09)
--- NOTE | 2025-05-27 12:48 | PC.PHAR ---
Pt is still a poor historian on medications. Discharged with [place] 5-325 bid prn on 05/22/25. All other meds are the same.
--- NOTE | 2025-05-27 13:34 | PC.NURSE ---
THIS NURSE AND ANKLE PATCH MOLDER ATTEMPTED 2 TIMES EACH TO GET NG TUBE. ALL ATTEMPTS WERE UNSUCCESSFUL AT THIS TIME.
--- NOTE | 2025-05-27 14:12 | XR_ITS ---
WS: [id number] Exam: XR chest 1V portable [id number] Date/Time of Exam: 05/27/2025 2:13 PM Reason For Exam: NG TUBE PLACEMENT Compared to the last study performed on the same day at 11:34 a.m. An NG tube is been placed and ends in the body of the stomach. The lungs are clear as visualized. Heart size is stable. Right-sided central line ends at the cavoatrial junction. Hardware in the T-spine. Radiographic contrast seen in the left kidney. XR/XR chest 1V portable [id number] IMPRESSION: 1. NG tube ending in the body the stomach. No other change. The lateral RIGHT l valerie zone is out of the [id number].
[2025-05-27] MEDS: promethazine 25 mg/mL SDV 1 mL IM (14:22)
[2025-05-27 15:04] LABS: Glucose Urine UA Negative (Normal); Nitrate Urine Negative (Negative)
[2025-05-27 15:08] LABS: Add Urine Microscopic? YES
[2025-05-27 15:24] LABS: Specific Gravity, Urine 1.087 (1.005-1.030)
[2025-05-27] MEDS: sodium chlor 0.9% + KCl 20 mEq 20 MEQ/1,000 ML BAG 125 MEQ IV (16:11)
[2025-05-28] VITALS (51 sets, daily range): BP systolic 117–165; BP diastolic 71–101; PULSE 76–105; RESP 10–25; O2SAT 91–100
[2025-05-28] MEDS: sodium chlor 0.9% + KCl 20 mEq 20 MEQ/1,000 ML BAG 125 MEQ IV ×3 (01:01→18:38)
[2025-05-28] MEDS: fentaNYL 50 mcg/mL INJ 2mL 25 MCG IVP (07:19)
[2025-05-28] MEDS: digoxin 250 mcg/ml INJ 2 mL 125 MCG IVP (09:35)
--- NOTE | 2025-05-28 09:43 | PC.NURSE ---
amiodarone infusion stopped per Dr. Yeboah
--- NOTE | 2025-05-28 09:53 | PC.NURSE ---
Jolie called for update. This nurse updated aayush, they staed they will see if they can get him a bed on the floor D/T discontinued amio infusion
--- NOTE | 2025-05-28 10:45 | PM.CONSULT ---
Providers/Reason For Consult Consulting Physician/Specialty*: Hospitalist Reason for Consult*: Medical management Primary Care Provider: Al Álvarez MD History of Present Illness History of Present Illness Charan Voss is a 70 year old male with a history of stage 4 colon cancer with hepatic metastases, prior extensive colon surgery with ostomy, atrial fibrillation, hypertension, HLD, asthma, restrictive lung disease due to kyphoscoliosis, obstructive sleep apnea (TAYLOR), history of Clostridioides difficile (C. diff) infection, and former tobacco use, chronic pain, presenting with 2 days of nausea and vomiting and inability to keep down medications for approximately 3?4 days. Reports abdominal pain and palpitations, denies chest pain and fevers at home. Multiple recent falls (four in three days) with development of a leg hematoma; has been largely bedbound since. An nasogastric (NG) tube was placed for decompression; small bowel obstruction/enteritis versus ileus discussed. Patient receives oncology care at [place] and is awaiting transfer there. Home oral vancomycin is taken chronically for C. diff per prior clinician; currently unable to take oral meds. Home rivaroxaban (Xarelto) for atrial fibrillation not taken in the last few days due to vomiting. Recent chemo pills were obtained but not taken due to obstruction. In the emergency department, heart rate was in the 120s with atrial fibrillation with rapid ventricular response; treated with intravenous (IV) fluids, antiemetics, fentanyl, IV digoxin, and started on an amiodarone infusion. No reported prior venous thromboembolism. Duration off medications reported as 3?4 days. Review of Systems Const: Reports: change in appetite; Denies: fever(s), chills, body aches or malaise ENMT: Denies: throat pain Card: Denies: chest pain, edema, pre-syncope or dyspnea on exertion Resp: Denies: dyspnea, productive cough, change in phlegm color or hemoptysis GI: Reports: abdominal pain, nausea, vomiting and bloating; Denies: diarrhea, constipation, hematochezia or melena : Denies: flank pain, difficulty urinating, urinary frequency or hematuria Musc: Denies: back pain, joint swelling or joint redness Skin/Breast: Denies: rash or new lesions Neuro: Denies: headache(s) or confusion Medications/Allergies Home Medications ?Medication ?Instructions ?Recorded ?Confirmed ?Last Taken ?Type saw Flowity mg capsule 500 mg PO DAILY 11/15/20 05/28/25 05/25/25 History gabapentin 300 mg capsule 300 mg PO TID PRN nerve pain 02/04/23 05/28/25 05/25/25 History albuterol sulfate 90 mcg/actuation 2 puff inhalation Q4H PRN 10/08/24 05/28/25 Unknown History aerosol inhaler Shortness Of Breath digoxin 125 mcg (0.125 mg) tablet 0.125 mg PO DAILY 10/08/24 05/28/25 05/25/25 History epinephrine 0.3 mg/0.3 mL See Rx Instructions .Route .COMPLEX 10/08/24 05/28/25 Unknown History injection, auto-injector oxycodone 10 mg tablet 10 mg PO Q6H PRN Pain 10/08/24 05/28/25 12/04/24 History vancomycin 125 mg capsule 125 mg PO DAILY 12/04/24 05/28/25 05/25/25 History clobetasol 0.05 % topical cream 1 applic topical BID PRN hands 02/09/25 05/28/25 Unknown History testosterone 3 pump topical DAILY 02/09/25 05/28/25 05/22/25 History pantoprazole 40 mg tablet,delayed 40 mg PO QAM #60 tabs 02/12/25 05/28/25 05/25/25 Rx release (Protonix) amiodarone 200 mg tablet 200 mg PO DAILY #30 tabs 03/11/25 05/28/25 05/22/25 Rx aspirin 81 mg tablet,delayed 81 mg PO DAILY #30 tabs 03/11/25 05/28/25 05/22/25 Rx release atorvastatin 40 mg tablet 40 mg PO BEDTIME #30 tabs 03/11/25 05/28/25 05/25/25 Rx divalproex 500 mg tablet,delayed 500 mg PO TID #30 tabs 03/11/25 05/28/25 05/25/25 Rx release (Depakote) trazodone 150 mg tablet 150 mg PO BEDTIME #30 tabs 03/11/25 05/28/25 05/25/25 Rx allopurinol 300 mg tablet 300 mg PO DAILY 04/14/25 05/28/25 05/22/25 History fruquintinib 5 mg capsule See Rx Instructions .Route .COMPLEX 04/14/25 05/28/25 05/25/25 History (Fruzaqla) metoprolol tartrate 25 mg tablet 25 mg PO Q12H 04/14/25 05/28/25 05/25/25 History midodrine 5 mg tablet See Rx Instructions .Route .COMPLEX 04/14/25 05/28/25 05/25/25 History sucralfate 1 gram tablet 1 g PO BID 04/14/25 05/28/25 05/22/25 History hydrocodone 5 mg-acetaminophen 325 1 tab PO BID PRN pain #14 tabs 05/22/25 05/28/25 Unknown Rx mg tablet Allergies Allergy/AdvReac Type Severity Reaction Status Date / Time apixaban Allergy Unknown Headaches Verified 05/28/25 06:42 blackberry Allergy Unknown ADR-Diarrhe Verified 05/28/25 06:42 a blueberry Allergy Unknown ADR-Diarrhe Verified 05/28/25 06:42 a egg Allergy Unknown DIARRHEA, Verified 05/28/25 06:42 VOMITING AND STOMACH CRAMPING raspberry Allergy Unknown ADR-Diarrhe Verified 05/28/25 06:42 a strawberry Allergy Unknown ADR-Diarrhe Verified 05/28/25 06:42 a tomato Allergy Unknown ADR-Gastrointestinal Verified 05/28/25 06:42 Upset oats Allergy DIARRHEA Verified 05/28/25 06:42 Opioids - Morphine Analogues Allergy ADR-Chest Verified 05/28/25 06:42 Pain caffeine AdvReac Unknown PALPITATION Verified 05/28/25 06:42 S apple AdvReac DIARRHEA, Verified 05/28/25 06:42 VOMITING AND CRAMPING meperidine (From Demerol) AdvReac EXCESSIVE Verified 05/28/25 06:42 SEDATION morphine AdvReac HALLUCINATI Verified 05/28/25 06:42 ONS Current Medications Generic Name Dose Route Start Last Admin Trade Name Freq PRN Reason Stop Dose Admin Digoxin 125 mcg 05/28/25 09:00 05/28/25 09:35 Digoxin 250 Mcg/Ml Inj 2 Ml IVP 125 mcg DAILY SOFIA Administration Amiodarone HCl/Dextrose 360 mg in 200 mls @ 0 mls/hr 05/27/25 11:33 05/28/25 09:43 Nexterone IV 0 mg/min .Q0M SOFIA 0 mls/hr Protocol Titration Per Protocol Potassium Chloride/Sodium Chloride 20 meq in 1,000 mls @ 125 mls/hr 05/27/25 16:00 05/28/25 09:17 Sodium Chlor 0.9% + Kcl 20 Meq IV 125 mls/hr .Q8H SOFIA Administration PFSH Acute PFSH: Medical History Hydrops of gallbladder Atrial fibrillation with rapid ventricular response Elevated troponin Hypotension Orthostatic hypotension Complication of ostomy Ventilator dependent Intra-abdominal abscess post-procedure Metastatic colon cancer to liver Malignant neoplasm of splenic flexure Renal hematoma Colostomy complication C. 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 (~08/2022) hospitalized in [place] Chronic sinusitis of both maxillary sinuses Gout Asperger syndrome mild Dyslipidemia Degenerative joint disease (DJD) of lumbar spine Obstructive sleep apnea Chronic low back pain Substernal goiter Asthma Restrictive lung disease due to kyphoscoliosis Suspected exposure to asbestos Allergies Right renal stone Testosterone deficiency On TRT for 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 Erectile dysfunction Opioid contract exists previous Chronic pain syndrome Surgical History Hx of bilateral cataract extraction History of colostomy (11/01/22) Colostomy revision for control of bleeding History of exploratory laparotomy (10/15/22) Exploratory laparotomy with partial colon resection and with end colostomy formation Status post left hemicolectomy (10/08/22) laparoscopic converted to open, with splenic flexure takedown and right colon mobilization, primary anastamosis History of back surgery History of shoulder surgery History of appendectomy H/O arthroscopic knee surgery H/O ankle fusion H/O wrist surgery S/P ureteral stent placement Family History Grandfather CAD (coronary artery disease) Family/Other Cancer Grandmother Dementia Stroke Mother Lung disease Other Hypertension Denies family history of Rheumatoid arthritis Diabetes Lupus Clotting disorder Hyperlipidemia Chronic kidney disease (CKD) Suicide Anesthesia complication Bleeding disorder Social History Smoking and tobacco/nicotine status: former use of tobacco/nicotine Quit status (tobacco/nicotine): has quit using Year quit tobacco: 1976 [id number] Second hand smoke exposure: Yes Alcohol intake: never Substance/Drug Use: never Lives independently: Yes Current occupational status: retired Pets and animals: Yes Do you think of yourself as: Straight/Heterosexual Current gender identity: Male Vitals/I&O/Wt Last Vital Signs Temp 98.4 F 05/27/25 11:04 Pulse 103 H 05/28/25 08:45 Resp 14 05/28/25 07:26 BP 148/92 05/28/25 08:45 Pulse Ox 98 05/28/25 08:45 O2 Del Method Nasal Cannula 05/28/25 07:26 O2 Flow Rate 2 05/28/25 07:26 05/27/25 05/28/25 05/28/25 22:59 06:59 14:59 Intake Total 1000 / 2000 1000 / 3000 1238.341 / 1238.341 Output Total 800 / 800 800 / 1600 Balance 200 / 1200 200 / 1400 1238.341 / 1238.341 Weight last 48 hrs Weight 111.13 kg Physical Exam Narrative: Accompanied by his Const: COMMON NORMALS: patient oriented x3 and alert GENERAL APPEARANCE: cooperative ORIENTATION/CONSCIOUSNESS: Yes awake HENMT: COMMON NORMALS: oropharynx normal Neck/C-Spine: COMMON NORMALS: no JVD Resp: COMMON NORMALS: normal respiratory effort and clear to auscultation bilaterally AUSCULTATION: clear to auscultation bilaterally Cardio: COMMON NORMALS: no JVD, regular rhythm, S1 normal heart sound present, S2 normal heart sound present and No murmurs present (Cardio) RHYTHM: regular rhythm HEART SOUNDS: S1 normal heart sound present and S2 normal heart sound present GI: COMMON NORMALS: Soft to palpation and non-tender AUSCULTATION: Yes Hypoactive bowel sounds present PALPATION: Yes Soft to palpation OTHER: Right lower abdomen colostomy with liquid output Extremity: COMMON NORMALS: no joint enlargement and no pedal edema Neuro: COMMON NORMALS: patient oriented x3 and moves all extremities SENSORIUM/ORIENTATION: Yes alert Skin: COMMON NORMALS: no rashes or lesions noted GENERAL SKIN EXAM: no rashes or lesions noted Data 05/27/25 11:20 05/27/25 11:20 A&P Assessment and plan 1. Nausea and vomiting: Nausea and vomiting : Two days of nausea/vomiting with inability to tolerate oral intake or medications; suspected at least partial SBO and/or possible enteritis as seen on CT. Bowel sounds are hypoactive, appears to have some ileus. Caution with opioids as may worsen ileus, however, has also been having pain due to his cancer, although he has been on 10 mg of oxycodone 4 times daily prior to being unable to take it any longer 3 to 4 days ago. NG tube placed for decompression; bowel rest planned. - Continue bowel rest (no food or drink) with limited ice chips as tolerated - Continue antiemetics: ondansetron (Zofran) as needed Suspected small bowel obstruction/enteritis vs ileus : Imaging noted gastric air-fluid levels and a few mildly dilated small bowel loops; clinical exam with sluggish bowel sounds; NG decompression in place. Reviewed vitals, CBC, CMP, UA, CT abdomen pelvis, chest x-ray, EKG, NGT became untaped, not marked. Requested additional chest x-ray to confirm position. Reviewed ED provider note, discussed with ED provider. - Maintain NG decompression with intermittent clamping around oral medication administration. Reassess electrolytes with risk of deficiency. Check magnesium. - Attempt oral vancomycin dosing with continue vancomycin prophylaxis for now pending C. difficile studies with NG clamped around administration (30?60 minutes) - Check C. difficile. Consider vancomycin enemas via ostomy if oral administration not feasible 2. Paroxysmal atrial fibrillation with RVR: Presented with AFib with RVR (HR ~120s?126). Treated with IV digoxin and amiodarone drip in ED; home rate/rhythm meds not reliably taken due to vomiting. - Continue low-dose amiodarone infusion for maintenance (IV) while unable to take oral medications reliably. Monitor on telemetry. Monitor for risk of bradycardia, reassess electrolytes with NG suction. - Consider repeat IV digoxin at reduced dose every other day given TALON. Reassess renal function. Monitor for risk of toxicity. - Monitor for digoxin toxicity (given TALON) 3. Enteritis: Possible enteritis on CT versus findings due to SBO. Check C. difficile with history of C. difficile infection. 4. Acute kidney injury: Serum creatinine 1.6 (baseline ~0.9?1.0), likely related to dehydration from poor intake and vomiting. - Continue IV hydration; fluid challenge for TALON - Monitor for risk of fluid overload - Reassess renal function - Monitor intake and output - Avoid nephrotoxic medications 5. Prostate enlargement: Incidental finding of prostate enlargement with heterogenous enhancement on CT. Follow-up with PSA correlation would be recommended. Plan: Dark brown/red NG output: Possible slow upper GI bleed. Reassess hemoglobin. Hold Xarelto for now. For now initially only SCD for VTE prophylaxis, consider prophylactic heparin/Lovenox if no signs of major bleeding. IV PPI twice daily. Stage 4 colon cancer with hepatic metastases : Known metastatic colorectal cancer under care at [place]; currently unable to take chemo pills due to obstruction. - Arrange transfer to [place] [facility] when a bed is available History of Clostridioides difficile infection : Chronic oral vancomycin reported; concern for possible flare while currently unable to tolerate oral meds. - C. diff testing - Administer oral vancomycin with NG clamped as above - Consider vancomycin enemas if oral route not feasible Recent leg hematoma after falls : Hematoma of leg developed after multiple recent falls; hold Xarelto for now. Reviewed hemoglobin, without anemia. - Hypertension - Asthma - Restrictive lung disease due to kyphoscoliosis - Obstructive sleep apnea (TAYLOR) - History of Clostridioides difficile (C. diff) infection (on chronic oral vancomycin per prior clinician) - History of extensive colon surgery with ostomy - Recent leg hematoma after multiple falls - Former smoker PDMP PDMP Reviewed: Not Reviewed Diagnoses Nausea and vomiting R11.2 Paroxysmal atrial fibrillation with RVR I48.0 Enteritis K52.9 Acute kidney injury N17.9 Prostate enlargement N40.0
[2025-05-28] MEDS: HYDROmorphone 0.5 MG/0.5 ML INJ IVP ×2 (13:10→17:34)
--- NOTE | 2025-05-28 13:12 | XRR_ITS ---
PROCEDURE INFORMATION: Exam: XR Chest Exam date and time: 05/28/2025 1:23 PM Age: 70 years old Clinical indication: Device placement; Ng tube; Additional info: Confirm ngt location TECHNIQUE: Imaging protocol: Radiologic exam of the chest. Views: 1 view. COMPARISON: CR XR chest 1V portable [id number] 05/27/2025 2:13 PM FINDINGS: Limitations: The radiograph does not include the apices or the lateral aspect of the right lung. Tubes, catheters and devices: An NG tube is in place and appears unchanged in position since the prior exam. The tip overlies the left upper quadrant, likely within the body of the stomach. Unchanged right internal jugular central venous catheter with the tip at the right atrial orifice. Unchanged spinal fixation rods. Lungs: Visualized lungs reveal no infiltrate. Pleural spaces: No pleural effusion identified. Heart/Mediastinum: Heart size remains normal. Mediastinal size is normal. Bones/joints: See Tubes, catheters and devices finding. XR/XR chest 1V portable [id number] IMPRESSION: 1. Unchanged position of the NG tube, with the tip in the left upper quadrant. The tube likely overlies the body of the stomach. 2. No acute disease otherwise noted in the chest.
[2025-05-28] MEDS: pantoprazole 40 mg SDV IVP (13:14)
--- NOTE | 2025-05-28 13:36 | PC.NURSE ---
this nurse noticed output from NG suction had not changed since 0700 this AM. this nurse called xray to verify placement of NG. NG tube was not marked by nurse who placed. NG tube was not in place. will reinsert new NG
[2025-05-28 13:52] LABS: Magnesium 2.1 mg/dL (1.7-2.3)
--- NOTE | 2025-05-28 13:55 | PC.NURSE ---
Dr. Hernández requested that amiodarone infusion be restarted
[2025-05-28] MEDS: LORazepam 1 MG/0.5 ML injection 0.25 MG IVP (14:39)
[2025-05-28 16:54] LABS: Hemoglobin 11.10 g/dL (11.27-16.99)
[2025-05-29] VITALS (58 sets, daily range): BP systolic 121–156; BP diastolic 68–89; PULSE 65–82; RESP 1–32; O2SAT 84–100
[2025-05-29] MEDS: pantoprazole 40 mg SDV IVP ×2 (01:41→13:20)
[2025-05-29] MEDS: HYDROmorphone 0.5 MG/0.5 ML INJ IVP ×5 (01:41→23:55)
[2025-05-29] MEDS: sodium chlor 0.9% + KCl 20 mEq 20 MEQ/1,000 ML BAG 125 MEQ IV ×2 (04:42→13:19)
[2025-05-29] MEDS: ondansetron 2 mg/ML SDV 2 mL 4 MG IVP (09:10)
--- NOTE | 2025-05-29 13:17 | PM.PN ---
Subjective Subjective: the patient was seen in the morning and was on NGT suction currently no abdominal pain and doing well, slowly improving Vitals/I&O/Wt Last Vital Signs Temp 98.4 F 05/27/25 11:04 Pulse 68 05/29/25 09:15 Resp 14 05/29/25 09:15 BP 139/88 05/29/25 09:15 Pulse Ox 98 05/29/25 09:15 O2 Del Method Room Air 05/29/25 04:00 O2 Flow Rate 2 05/29/25 01:30 05/28/25 05/29/25 05/29/25 22:59 06:59 14:59 Intake Total 1000 / 2238.341 1000 / 3238.341 Balance 1000 / 2038.341 1000 / 3038.341 Physical Exam Narrative: General: Alert oriented x3, patient seen lying comfortably with NGT on clamp and no significant output at the moment HEENT: Normocephalic, atraumatic, EOMI, breathing at room air Cardio: Regular rate rhythm, normal S1-S2, no murmurs rubs gallops, JVD normal Respiratory: Good bilateral air entry, no wheezes no rhonchi appreciated GI: Abdomen soft, nontender, nondistended, normoactive bowel sounds present all 4 quadrants, Neuro: Cranial nerves II to XII intact, strength 5/5, sensation 5/5, no gross neurological deficit Behavior: Appropriate and cooperative Extremities: Pulses 2+, no edema, no cyanosis Skin: Visible skin intact, no rashes Data 05/28/25 13:22 05/27/25 11:20 A&P Assessment and plan 1. Subacute intestinal obstruction: Patient having 2 days of nausea and vomiting with inability to tolerate any medications. Possibility of SBO and enteritis seen on the CT. Surgery on board and to follow the plan of care, currently he is getting better and his SBO is resolving Patient on bowel rest with NGT tube in place for decompression with intermittent clamping and n.p.o. Adequate hydration with correction of electrolytes especially magnesium and follow-up potassium to avoid any ileus. Antiemetics for nausea and vomiting 2. Paroxysmal atrial fibrillation with RVR: Presented with AFib with RVR currently controlled Unable to take orally currently heart rate controlled - Continue low-dose amiodarone infusion for maintenance (IV) while unable to take oral medications reliably. Telemetry Electrolyte monitoring and correction accordingly 3. Enteritis: Possible enteritis on CT versus findings due to SBO. Check C. difficile with history of C. difficile infection. 4. Acute kidney injury: Serum creatinine 1.6 (baseline ~0.9?1.0), likely related to dehydration from poor intake and vomiting. - Continue adequate hydration - Monitor for risk of fluid overload - Reassess renal function - Monitor intake and output - Avoid nephrotoxic medications 5. Prostate enlargement: Monitor for any urinary symptoms Adequate intake and output monitoring Plan: Stage 4 colon cancer with hepatic metastases : Known metastatic colorectal cancer under care at [place]; currently unable to take chemo pills due to obstruction. - Patient awaited bed transfer to [facility], transfer already initiated as per the previous notes History of Clostridioides difficile infection : Chronic oral vancomycin reported; concern for possible flare while currently unable to tolerate oral meds. However currently improving - C. diff testing if adequate stool consistency and appropriate for C. difficile test otherwise no need to proceed - Administer oral vancomycin with NG clamped as above - Consider vancomycin enemas if oral route not feasible Recent leg hematoma after falls : Hematoma of leg developed after multiple recent falls; hold Xarelto for now. - Hypertension - Asthma - Restrictive lung disease due to kyphoscoliosis - Obstructive sleep apnea (TAYLOR) - History of Clostridioides difficile (C. diff) infection (on chronic oral vancomycin per prior clinician) - Former smoker Medical comorbidities have been addressed VTE: Heparin 5000 twice daily diet: npo PDMP PDMP Reviewed: Not Reviewed Attestations Medical Necessity Statement*: Charan Voss's hospital stay will require greater than 2 midnights for Time Spent in Patient Care: 16 - 35 minutes (>than 50% of time spent in counselling and/or direct pt care on unit). Other Attestations: Patient condition has been discussed at length with the patient/family, I have independently reviewed the chart labs imaging and diagnostics and EKG. the goals of care and code status with the patient/family/NOK/legal bilingual sales representative, and documented accordingly. The patient/family has been informed about the current condition and further plan of care. Agreed with the plan of care and understood without any language barrier. This documentation was created by [employer] senior treasury analyst software. Every effort was made to ensure accuracy of senior treasury analyst. Any obvious errors or omissions should be clarified with the author of the document. Coding Level of Care Code 45315 Diagnoses Subacute intestinal obstruction K56.609 Paroxysmal atrial fibrillation with RVR I48.0 Enteritis K52.9 Acute kidney injury N17.9 Prostate enlargement N40.0
--- NOTE | 2025-05-29 14:57 | XRR_ITS ---
PROCEDURE INFORMATION: Exam: XR Abdomen Exam date and time: 05/29/2025 3:23 PM Age: 70 years old Clinical indication: Condition or disease; Intestinal condition; Obstruction; Additional info: F/u sbo TECHNIQUE: Imaging protocol: Radiologic exam of the abdomen. Views: Frontal supine view of the abdomen. 1 View. COMPARISON: CT abdomen pelvis w con* [id number] 05/27/2025 12:04 PM FINDINGS: Gastrointestinal tract: Radiographic contrast fills the fundus and proximal body of the stomach. The administered contrast does not extend into the distal stomach or small bowel. Gas-filled mildly dilated loops of small bowel are noted in the left upper quadrant. Right abdominal stoma is present. An NG tube is in place. The distal end extends into the stomach, with the tip obscured by radiographic contrast. Intraperitoneal space: Abdominal mass is not identified. Bones/joints: Posterior thoracic spinal fixation rods are noted. Posterior metallic fixation device involves the lower lumbar spine. Moderate dextroscoliosis of the lumbar spine. XR/XR abdomen 1V* [id number] IMPRESSION: 1. Radiographic contrast lies within the proximal stomach. 2. Persistent small bowel dilatation left abdomen, concerning for obstruction.
--- NOTE | 2025-05-29 15:20 | PC.NURSE ---
per Dr. Hawthorne to keep NG tube clamped from now, Dr. Hawthorne is administering contrast at this time; verbal order to have chest xray @1900 and to only unclamp NG tube if pt begins vomiting.
--- NOTE | 2025-05-29 15:28 | PM.CONSULT ---
Providers/Reason For Consult Consulting Physician/Specialty*: General Surgery Reason for Consult*: Evaluation for SBO Primary Care Provider: Al Álvarez MD History of Present Illness History of Present Illness Charan Voss is a 70 year old male with multiple medical comorbidities including metastatic cancer he is status post partial colectomy with end colostomy. Presented about 2 days ago to the ER was noted to have a possible small bowel obstruction compression with NG tube was initiated and patient was deemed to be a good candidate for transfer to higher level of care as he has all his care in [place] as well as due to his complex surgical history. Since patient has been waiting for transfer he has noticed improvement of symptoms I have been consulted for evaluation for my opinion regarding his small bowel obstruction. Of note I got to meet the patient yesterday when I was asked to replace his NG tube after multiple failed attempts. He is currently doing okay no significant abdominal pain ostomy is productive with gas and some stool. NG output over the last 4 hours has been minimal Review of Systems General: Reports: 10 or more systems reviewed and unremarkable except in HPI and below Medications/Allergies Home Medications ?Medication ?Instructions ?Recorded ?Confirmed ?Last Taken ?Type saw palmetto 500 mg capsule 500 mg PO DAILY 11/15/20 05/28/25 05/25/25 History gabapentin 300 mg capsule 300 mg PO TID PRN nerve pain 02/04/23 05/28/25 05/25/25 History albuterol sulfate 90 mcg/actuation 2 puff inhalation Q4H PRN 10/08/24 05/28/25 Unknown History aerosol inhaler Shortness Of Breath digoxin 125 mcg (0.125 mg) tablet 0.125 mg PO DAILY 10/08/24 05/28/25 05/25/25 History epinephrine 0.3 mg/0.3 mL See Rx Instructions .Route .COMPLEX 10/08/24 05/28/25 Unknown History injection, auto-injector oxycodone 10 mg tablet 10 mg PO Q6H PRN Pain 10/08/24 05/28/25 12/04/24 History vancomycin 125 mg capsule 125 mg PO DAILY 12/04/24 05/28/25 05/25/25 History clobetasol 0.05 % topical cream 1 applic topical BID PRN hands 02/09/25 05/28/25 Unknown History testosterone 3 pump topical DAILY 0505/28/25 05/22/25 History pantoprazole 40 mg tablet,delayed 40 mg PO QAM #60 tabs 02/12/25 05/28/25 05/25/25 Rx release (Protonix) amiodarone 200 mg tablet 200 mg PO DAILY #30 tabs 03/11/25 05/28/25 05/22/25 Rx aspirin 81 mg tablet,delayed 81 mg PO DAILY #30 tabs 03/11/25 05/28/25 05/22/25 Rx release atorvastatin 40 mg tablet 40 mg PO BEDTIME #30 tabs 03/11/25 05/28/25 05/25/25 Rx divalproex 500 mg tablet,delayed 500 mg PO TID #30 tabs 03/11/25 05/28/25 05/25/25 Rx release (Depakote) trazodone 150 mg tablet 150 mg PO BEDTIME #30 tabs 03/11/25 05/28/25 05/25/25 Rx allopurinol 300 mg tablet 300 mg PO DAILY 04/14/25 05/28/25 05/22/25 History fruquintinib 5 mg capsule See Rx Instructions .Route .COMPLEX 04/14/25 05/28/25 05/25/25 History (Fruzaqla) metoprolol tartrate 25 mg tablet 25 mg PO Q12H 04/14/25 05/28/25 05/25/25 History midodrine 5 mg tablet See Rx Instructions .Route .COMPLEX 04/14/25 05/28/25 05/25/25 History sucralfate 1 gram tablet 1 g PO BID 04/14/25 05/28/25 05/22/25 History hydrocodone 5 mg-acetaminophen 325 1 tab PO BID PRN pain #14 tabs 05/22/25 05/28/25 Unknown Rx mg tablet Allergies Allergy/AdvReac Type Severity Reaction Status Date / Time apixaban Allergy Unknown Headaches Verified 05/28/25 06:42 blackberry Allergy Unknown ADR-Diarrhe Verified 05/28/25 06:42 a blueberry Allergy Unknown ADR-Diarrhe Verified 05/28/25 06:42 a egg Allergy Unknown DIARRHEA, Verified 05/28/25 06:42 VOMITING AND STOMACH CRAMPING raspberry Allergy Unknown ADR-Diarrhe Verified 05/28/25 06:42 a strawberry Allergy Unknown ADR-Diarrhe Verified 05/28/25 06:42 a tomato Allergy Unknown ADR-Gastrointestinal Verified 05/28/25 06:42 Upset oats Allergy DIARRHEA Verified 05/28/25 06:42 Opioids - Morphine Analogues Allergy ADR-Chest Verified 05/28/25 06:42 Pain caffeine AdvReac Unknown PALPITATION Verified 05/28/25 06:42 S apple AdvReac DIARRHEA, Verified 05/28/25 06:42 VOMITING AND CRAMPING meperidine (From Demerol) AdvReac EXCESSIVE Verified 05/28/25 06:42 SEDATION morphine AdvReac HALLUCINATI Verified 05/28/25 06:42 ONS Current Medications Generic Name Dose Route Start Last Admin Trade Name Freq PRN Reason Stop Dose Admin Digoxin 125 mcg 05/28/25 09:00 05/28/25 09:35 Digoxin 250 Mcg/Ml Inj 2 Ml IVP 125 mcg On Hold: 05/28/25 16:29 DAILY SOFIA Administration Hydromorphone HCl 0.5 mg 05/28/25 12:56 05/29/25 09:09 Hydromorphone 0.5 Mg/0.5 Ml Inj IVP 0.5 mg Q4H PRN Administration SEVERE PAIN Potassium Chloride/Sodium Chloride 20 meq in 1,000 mls @ 125 mls/hr 05/27/25 16:00 05/29/25 13:19 Sodium Chlor 0.9% + Kcl 20 Meq IV 125 mls/hr .Q8H SOFIA Administration Amiodarone HCl/Dextrose 360 mg in 200 mls @ 0 mls/hr 05/28/25 12:59 05/29/25 13:20 Nexterone IV 0.5 mg/min .Q0M SOFIA 16.67 mls/hr Protocol Administration Per Protocol Ondansetron HCl 4 mg 05/28/25 12:59 05/29/25 09:10 Ondansetron 2 Mg/Ml Sdv 2 Ml IVP 4 mg Q4H PRN Administration vomiting, or N/V if npo Pantoprazole Sodium 40 mg 05/28/25 13:00 05/29/25 13:20 Pantoprazole 40 Mg Sdv IVP 40 mg Q12H SOFIA Administration Vancomycin HCl 125 mg 05/28/25 13:00 05/29/25 09:09 Vancomycin 125 Mg Capsule PO 125 mg DAILY SOFIA Administration PFSH Acute PFSH: Medical History (Updated 05/29/25 @ 15:27 by Merline Aguilar MD) Hydrops of gallbladder Atrial fibrillation with rapid ventricular response Elevated troponin Hypotension Orthostatic hypotension Complication of ostomy Ventilator dependent Intra-abdominal abscess post-procedure Metastatic colon cancer to liver Malignant neoplasm of splenic flexure Renal hematoma Colostomy complication C. 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 (~08/2022) hospitalized in [place] Chronic sinusitis of both maxillary sinuses Gout Asperger syndrome mild Dyslipidemia Degenerative joint disease (DJD) of lumbar spine Obstructive sleep apnea Chronic low back pain Substernal goiter Asthma Restrictive lung disease due to kyphoscoliosis Suspected exposure to asbestos Allergies Right renal stone Testosterone deficiency On TRT for 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 Erectile dysfunction Opioid contract exists previous Chronic pain syndrome Surgical History Hx of bilateral cataract extraction History of colostomy (11/01/22) Colostomy revision for control of bleeding History of exploratory laparotomy (10/15/22) Exploratory laparotomy with partial colon resection and with end colostomy formation Status post left hemicolectomy (10/08/22) laparoscopic converted to open, with splenic flexure takedown and right colon mobilization, primary anastamosis History of back surgery History of shoulder surgery History of appendectomy H/O arthroscopic knee surgery H/O ankle fusion H/O wrist surgery S/P ureteral stent placement Family History Grandfather CAD (coronary artery disease) Family/Other Cancer Grandmother Dementia Stroke Mother Lung disease Other Hypertension Denies family history of Rheumatoid arthritis Diabetes Lupus Clotting disorder Hyperlipidemia Chronic kidney disease (CKD) Suicide Anesthesia complication Bleeding disorder Social History Smoking and tobacco/nicotine status: former use of tobacco/nicotine Quit status (tobacco/nicotine): has quit using Year quit tobacco: 1975 [id number] Second hand smoke exposure: Yes Alcohol intake: never Substance/Drug Use: never Lives independently: Yes Current occupational status: retired Pets and animals: Yes Do you think of yourself as: Straight/Heterosexual Current gender identity: Male Vitals/I&O/Wt Last Vital Signs Temp 98.4 F 05/27/25 11:04 Pulse 71 05/29/25 14:55 Resp 7 L 05/29/25 14:55 BP 121/70 05/29/25 14:55 Pulse Ox 100 05/29/25 14:55 O2 Del Method Room Air 05/29/25 04:00 O2 Flow Rate 2 05/29/25 01:30 05/29/25 05/29/25 05/29/25 06:59 14:59 22:59 Intake Total 1000 / 3238.341 1200 / 1200 Balance 1000 / 3038.341 1200 / 1200 Physical Exam Narrative: NG tube is in place. Abdominal exam is benign the abdomen is soft minimally tender nondistended there is good bowel sounds there is gas in the ostomy Data 05/28/25 13:22 05/27/25 11:20 A&P Assessment and plan 1. Vomitin. Colon cancer: 3. Subacute intestinal obstruction: Plan: Clinical picture appears to be of a resolving small bowel obstruction. To confirm resolution of the SBO my next step will be to obtain a Gastrografin trial, I have administer Gastrografin mixed with water at 3:15 PM and we will obtain the first follow-up x-ray around 7 to 7:30 PM. I have explained to the patient that if we verify that his bowel obstruction has resolved his NG tube can be removed and he will be allowed to get diet. In the case of a persistent SBO NG tube will continue to the low intermittent suction until he is able to be transferred to higher level of care. If patient is able to get a bed while waiting for the Gastrografin trial additional imaging can be obtained once he arrives to higher level of care. All other management per medical team, general surgery will continue to follow-up until the Gastrografin trial is completed. PDMP PDMP Reviewed: Not Reviewed Coding Level of Care Code Acute Code for Chg Fwd Diagnoses Vomiting R11.10 Colon cancer C18.9 Subacute intestinal obstruction K56.609
[2025-05-29 15:54] LABS: Hematocrit 31.9 % (37-53); Hemoglobin 9.90 g/dL (11.27-16.99); Mean Corpuscular HGB Conc 31.0 g/dL (30-55); Mean Corpuscular Hemoglobin 29.5 pg (27-33); Mean Corpuscular Volume 94.9 fl (82-101); Nucleated Red Blood Cells % 0 %; Platelet Count 214 10^3/cmm (157-399); Red Blood Count 3.36 10^6/uL (3.85-5.65); White Blood Count 6.65 10^3/uL (3.29-11.43)
[2025-05-29 16:08] LABS: Alanine Aminotransferase 17 U/L (0-41); Albumin Level 3.2 g/dL (3.5-5.2); Alkaline Phosphatase 89 U/L (40-130); Anion Gap 14.4 (5-19); Aspartate Amino Transferase 25 U/L (0-40); Blood Urea Nitrogen 16 mg/dL (8-23); Calcium 9.2 mg/dL (8.5-10.5); Carbon Dioxide 24 mmol/L (22-29); Chloride 101 mmol/L (98-107); Creatinine Clr Calc Pharmacy 117.3132; Globulin 3.2 g/dL (1.3-4.6); Glucose 86 mg/dL (65-115); Osmolality Calculated 280 mOsm/kg (285-295); Potassium 4.4 mmol/L (3.5-5.1); Sodium 135 mmol/L (136-145); Total Protein 6.4 g/dL (6.6-8.7)
[2025-05-29] MEDS: heparin 5,000 unit/mL INJ 1 mL 5000 UNIT SUBCUT (17:39)
--- NOTE | 2025-05-29 17:55 | PM.MISC ---
Miscellaneous Note Purpose of Documentation: Update on patient care Note: I reevaluated the patient, ostomy has been productive of large amount of fluid, I suspect this might be the Gastrografin that was administered earlier. We will obtain stat x-ray of the abdomen for further evaluation.
--- NOTE | 2025-05-29 17:56 | XRR_ITS ---
PROCEDURE INFORMATION: Exam: XR Abdomen Exam date and time: 05/29/2025 6:08 PM Age: 70 years old Clinical indication: Other: Sbo; Prior surgery; Surgery date: 6+ months; Surgery type: Hemicolectomy, colostomy, spinal fusion; Additional info: Followup sbo; 3hr hilm TECHNIQUE: Imaging protocol: Radiologic exam of the abdomen. Views: Frontal supine view of the abdomen. 1 View. COMPARISON: CR (ABDOMEN, ) 05/29/2025 3:23 PM FINDINGS: Gastrointestinal tract: Radiographic contrast fills the fundus and proximal body of the stomach. Bowel caliber probably not significantly changed compared to prior. There is now faint contrast opacification of loops of jejunum, ileum, and colon though faint compared to stomach. NG tube in place. Bones/joints: Posterior thoracic spinal fixation rods. Fixation device of the lower lumbar spine. Moderate dextroscoliosis. XR/XR abdomen 1V* [id number] IMPRESSION: Radiographic contrast fills the fundus and proximal body of the stomach. Bowel caliber probably not significantly changed compared to prior. There is now faint contrast opacification of loops of jejunum, ileum, and colon, though faint compared to stomach. NG tube in place.
[2025-05-29 22:44] LABS: C.Diff PCR (Lab) NEGATIVE (Negative)
[2025-05-30] VITALS (13 sets, daily range): BP systolic 115–162; BP diastolic 63–100; PULSE 55–82; RESP 14–23; TEMP 36.4–37; O2SAT 92–100
[2025-05-30] MEDS: ondansetron 2 mg/ML SDV 2 mL 4 MG IVP ×2 (00:33→08:36)
[2025-05-30] MEDS: pantoprazole 40 mg SDV IVP (01:02)
[2025-05-30 04:24] LABS: Hematocrit 32.7 % (37-53); Hemoglobin 10.30 g/dL (11.27-16.99); Mean Corpuscular HGB Conc 31.5 g/dL (30-55); Mean Corpuscular Hemoglobin 30.6 pg (27-33); Mean Corpuscular Volume 97.0 fl (82-101); Nucleated Red Blood Cells % 0 %; Platelet Count 209 10^3/cmm (157-399); Red Blood Count 3.37 10^6/uL (3.85-5.65); White Blood Count 6.64 10^3/uL (3.29-11.43)
[2025-05-30] MEDS: HYDROmorphone 0.5 MG/0.5 ML INJ IVP ×5 (04:32→22:00)
[2025-05-30 04:42] LABS: Alanine Aminotransferase 17 U/L (0-41); Albumin Level 3.0 g/dL (3.5-5.2); Alkaline Phosphatase 91 U/L (40-130); Anion Gap 17.5 (5-19); Aspartate Amino Transferase 24 U/L (0-40); Blood Urea Nitrogen 14 mg/dL (8-23); Calcium 9.2 mg/dL (8.5-10.5); Carbon Dioxide 22 mmol/L (22-29); Chloride 100 mmol/L (98-107); Creatinine Clr Calc Pharmacy 117.3132; Globulin 3.5 g/dL (1.3-4.6); Glucose 84 mg/dL (65-115); Osmolality Calculated 280 mOsm/kg (285-295); Potassium 4.5 mmol/L (3.5-5.1); Sodium 135 mmol/L (136-145); Total Protein 6.5 g/dL (6.6-8.7)
--- NOTE | 2025-05-30 06:50 | XRR_ITS ---
PROCEDURE INFORMATION: Exam: XR Abdomen Exam date and time: 05/30/2025 6:56 AM Age: 70 years old Clinical indication: Other: F/ugastrografin 15 hours; Prior surgery; Surgery date: 6+ months; Surgery type: Colon; F/u sbo TECHNIQUE: Imaging protocol: Radiologic exam of the abdomen. Views: Frontal supine view of the abdomen. 1 View. COMPARISON: CR (ABDOMEN, ) 05/29/2025 6:08 PM FINDINGS: The previously administered Gastrografin is not readily apparent on this exam. It is either passed through the intestinal system or has been diluted substantially and no longer sufficient radiopacity to visualized. The bowel gas pattern is nonspecific without obvious dilated bowel on the current study. NG tube terminates in the stomach. Please note that the lateral abdominal regions are not imaged on this portable exam. XR/XR abdomen 1V* [id number] IMPRESSION: Nonspecific abdominal findings. No convincing evidence of bowel obstruction on this portable radiograph.
--- NOTE | 2025-05-30 09:44 | P.PN_ITS ---
Subjective 2 Subjective: Doing well this morning no nausea or vomit overnight, no abdominal distention. Good ostomy output. Vitals/I&O/Wt Last Vital Signs Temp 98.4 F 05/27/25 11:04 Pulse 71 05/30/25 09:30 Resp 18 05/30/25 09:30 BP 140/78 05/30/25 09:30 Pulse Ox 100 05/30/25 09:30 O2 Del Method Nasal Cannula 05/30/25 04:36 O2 Flow Rate 2 05/30/25 04:36 05/29/25 05/30/25 05/30/25 22:59 06:59 14:59 Intake Total 1195.039 / 2395.039 Output Total 900 / 900 Balance -900 / 300 1195.039 / 1495.039 Physical Exam 2 GI: OTHER: Abdomen soft nontender nondistended good bowel sounds ostomy productive of gas and stool. Data 05/30/25 04:07 05/30/25 04:07 Micro: Microbiology 05/29/25 21:32 Stool Lactoferrin - Final Stool A&P Assessment and plan 1. Malignant neoplasm of splenic flexure: 2. Metastatic colon cancer to liver: 3. Subacute intestinal obstruction: Plan: Patient showing excellent progression. Bowel obstruction appears to have resolved. X-ray done this morning shows evidence of complete passage of the Gastrografin from the GI tract, the bowel gas is nonspecific. I did check the residue in the stomach and there is none. Patient will be allowed to have a clear liquid diet and advance to full liquids as tolerated. If he is tolerating diet by tomorrow morning we will allow him to get a GI soft diet. If patient has not received a bed assignment at that time he might transition to the outpatient setting and follow-up with oncology in [place] as outpatient. I have explained to the patient that resolution of the SBO at this point does not mean that he is not going to have a early recurrence as he does have malignant disease of the abdomen and several previous surgeries. I have discussed the plan with medical team and they agree PDMP PDMP Reviewed: Not Reviewed Attestations 2 Medical Necessity Statement*: Per medical team Coding Level of Care Code Acute Code for Chg Fwd Diagnoses Malignant neoplasm of splenic flexure C18.5 Metastatic colon cancer to liver C18.9; C78.7 Subacute intestinal obstruction K56.609
--- NOTE | 2025-05-30 10:27 | PC.NURSE ---
Dr. Hawthorne came to the ER to see pt, he asked me to accompany him into the room. Dr. Hawthorne told the pt that according to his xray this morning that all of the contrast had made it through his stomach and bowels and that the obstruction has resolved. Dr. Hawthorne then told pt that he would be removing his NG tube. Dr. Hawthorne removed the pt's NG tube, tube was intact. Dr. Hawthorne stated that he would speak with the hospitalist, Dr Aguilar, regarding the update and have him decide what our next step is on transfer. Pt was placed on a clear liquid diet as of now.
--- NOTE | 2025-05-30 10:30 | PC.NURSE ---
Tianna Nurse Ana Paula went to check on pt's call light, pt stated his bed was wet. Tianna went to see where the bed was wet and discovered the pt had pulled the IV in his RAC out and amiodarone was dripping out onto the bed. We then bandaged his RAC and we will be starting another IV site. Pt still has an IV in the LAC.
--- NOTE | 2025-05-30 12:22 | PM.PN ---
Subjective Subjective: the patient was seen in the morning and underwent gastrograffin study that showed complete passage of the gastrograffin. transitioned to clear fluid diet. Doing well this morning no nausea or vomit overnight, no abdominal distention. Good ostomy output. Vitals/I&O/Wt Last Vital Signs Temp 98.4 F 05/27/25 11:04 Pulse 55 L 05/30/25 12:13 Resp 18 05/30/25 09:30 BP 144/100 05/30/25 12:13 Pulse Ox 95 05/30/25 12:13 O2 Del Method Nasal Cannula 05/30/25 04:36 O2 Flow Rate 2 05/30/25 04:36 05/29/25 05/30/25 05/30/25 22:59 06:59 14:59 Intake Total 1195.039 / 2395.039 1000 / 1000 Output Total 900 / 900 Balance -900 / 300 1195.039 / 8897.650 3456 / 1000 Physical Exam Narrative: General: Alert oriented x3, patient seen lying comfortably and NGT removed HEENT: Normocephalic, atraumatic, EOMI, breathing at room air Cardio: Regular rate rhythm, normal S1-S2, no murmurs rubs gallops, JVD normal Respiratory: Good bilateral air entry, no wheezes no rhonchi appreciated GI: Abdomen soft, nontender, nondistended, normoactive bowel sounds present all 4 quadrants, colostomy working Neuro: Cranial nerves II to XII intact, strength 5/5, sensation 5/5, no gross neurological deficit Behavior: Appropriate and cooperative Extremities: Pulses 2+, no edema, no cyanosis Skin: Visible skin intact, no rashes Data 05/30/25 04:07 05/30/25 04:07 Micro: Microbiology 05/29/25 21:32 Stool Lactoferrin - Final Stool A&P Assessment and plan 1. Subacute intestinal obstruction: Surgery on board and to follow the plan of care, currently he is getting better and his SBO is resolving Off ngt today and for clear fluids diet surgery onboard and since the patient is stiil a high risk of recurrence for SBO due to h/o complex surgeries therefore in case if there is transfer then to proceed with it Adequate hydration with correction of electrolytes. Antiemetics for nausea and vomiting 2. Paroxysmal atrial fibrillation with RVR: Presented with AFib with RVR currently controlled - resume home medications amiodarone and metoprolol and in case of any increased or uncontrolled HR then consider adding digoxin further - monitor HR and BP, in case of bradycardia below 60 and BP with systolic <100mmhg then hold the medications Electrolyte monitoring and correction accordingly 3. Enteritis: Possible enteritis on CT versus findings due to SBO. no C diff infection on testing 4. Acute kidney injury: Serum creatinine 1.6 (baseline ~0.9?1.0),resolved - Continue adequate hydration for one more day untill diet is advanced to soft GI - Monitor intake and output - Avoid nephrotoxic medications 5. Prostate enlargement: Monitor for any urinary symptoms Adequate intake and output monitoring Plan: History of Clostridioides difficile infection : hold vancomycin, since C diff is negative Recent leg soft tissue swellings, however not evident of any increase in swelling or any hematoma per say documented in the notes: continue xarelto and monitor for any hb drop Other co-morbid conditions: - Hypertension: monitor BP and avoid anti HTN meds since he is on only clear fluids - Asthma duo nebs as needed - Restrictive lung disease due to kyphoscoliosis: monitor o2 sats and oxygen protocol as needed - Obstructive sleep apnea (TAYLOR): monitor for any oxygen desaturations - Former smoker Stage 4 colon cancer with hepatic metastases : and disposition Known metastatic colorectal cancer under care at [place]; currently unable to take chemo pills due to obstruction. - Patient awaited bed transfer to [facility], transfer already initiated as per the previous notes Medical comorbidities have been addressed medication reconciliation: pt need meds reconciliation as outpatient after confirmation with the surgery the patient can be started on oral medications with sips of water VTE: home xarelto 20mg at [facility] and stroke prevention diet: clear fluid diet PDMP PDMP Reviewed: Not Reviewed Attestations Medical Necessity Statement*: Charan Voss's hospital stay will require greater than 2 midnights for management for SBO as per surgery plan as per the tolerance of the advanced diet Time Spent in Patient Care: 16 - 35 minutes (>than 50% of time spent in counselling and/or direct pt care on unit). Other Attestations: Patient condition has been discussed at length with the patient/family, I have independently reviewed the chart labs imaging and diagnostics and EKG. the goals of care and code status with the patient/family/NOK/legal promotions representative, and documented accordingly. The patient/family has been informed about the current condition and further plan of care. Agreed with the plan of care and understood without any language barrier. This documentation was created by [employer] speaking unit assembler software. Every effort was made to ensure accuracy of speaking unit assembler. Any obvious errors or omissions should be clarified with the author of the document. Coding Level of Care Code 91983 Diagnoses Subacute intestinal obstruction K56.609 Paroxysmal atrial fibrillation with RVR I48.0 Enteritis K52.9 Acute kidney injury N17.9 Prostate enlargement N40.0
--- NOTE | 2025-05-30 12:28 | PC.NURSE ---
Patient transferred from ED to CSU at 1220 via a bed.
[2025-05-30] MEDS: divalproex DR 500 mg Tablet PO (16:02)
[2025-05-31] VITALS: BP 126/58; PULSE 79; RESP 20; TEMP 36.6; O2SAT 97
[2025-05-31 03:58] VITALS: BP 140/77; PULSE 73; RESP 18; TEMP 36.6; O2SAT 100
[2025-05-31 04:58] LABS: Hematocrit 31.3 % (37-53); Hemoglobin 10.00 g/dL (11.27-16.99); Mean Corpuscular HGB Conc 31.9 g/dL (30-55); Mean Corpuscular Hemoglobin 30.1 pg (27-33); Mean Corpuscular Volume 94.3 fl (82-101); Nucleated Red Blood Cells % 0 %; Platelet Count 211 10^3/cmm (157-399); Red Blood Count 3.32 10^6/uL (3.85-5.65); White Blood Count 5.71 10^3/uL (3.29-11.43)
[2025-05-31 05:57] LABS: Alanine Aminotransferase 17 U/L (0-41); Albumin Level 3.2 g/dL (3.5-5.2); Alkaline Phosphatase 88 U/L (40-130); Anion Gap 13.2 (5-19); Aspartate Amino Transferase 24 U/L (0-40); Blood Urea Nitrogen 13 mg/dL (8-23); Calcium 9.2 mg/dL (8.5-10.5); Carbon Dioxide 27 mmol/L (22-29); Chloride 98 mmol/L (98-107); Creatinine Clr Calc Pharmacy 119.2975; Globulin 2.6 g/dL (1.3-4.6); Glucose 102 mg/dL (65-115); Osmolality Calculated 278 mOsm/kg (285-295); Potassium 4.2 mmol/L (3.5-5.1); Sodium 134 mmol/L (136-145); Total Protein 5.8 g/dL (6.6-8.7)
[2025-05-31] MEDS: HYDROmorphone 0.5 MG/0.5 ML INJ IVP ×2 (07:53→12:13)
[2025-05-31] MEDS: divalproex DR 500 mg Tablet PO (07:54)
[2025-05-31 07:56] VITALS: BP 117/63; PULSE 69; RESP 20; TEMP 36.1; O2SAT 98
[2025-05-31 08:26] VITALS: PULSE 74; RESP 16; O2SAT 98
--- NOTE | 2025-05-31 09:11 | P.PN_ITS ---
Subjective 2 Subjective: 78-year-old male with multiple comorbidi ties including colon cancer metastatic to the liver who is status post partial colectomy with end colostomy. He presented with a partial small bowel obstruction has not been able to take his chemotherapy or amiodarone for several days. He was awaiting transfer to higher level of care but In the meantime we were consulted for management of SBO, Gastrografin trial was done over the last 48 hours and was normal SBO appears to be resolving patient tolerating diet no significant abdominal pain good ostomy output. Vitals/I&O/Wt Last Vital Signs Temp 97.0 F L 05/31/25 07:56 Pulse 74 05/31/25 08:26 Resp 16 05/31/25 08:26 BP 117/63 05/31/25 07:56 Pulse Ox 98 05/31/25 08:26 O2 Del Method Nasal Cannula 05/31/25 08:26 O2 Flow Rate 2 05/31/25 08:26 05/30/25 05/31/25 05/31/25 22:59 06:59 14:59 Intake Total 1000 / 2200 Output Total 650 / 650 1225 / 1875 350 / 350 Balance 350 / 1550 -1225 / 325 -350 / -350 Weight last 48 hrs Weight 245 lb 4 oz Weight 254 lb Physical Exam 2 GI: OTHER: Benign abdominal exam good bowel sounds and ostomy productive of large amount of gas and stool Data 05/31/25 04:16 05/31/25 04:08 A&P Assessment and plan 1. Metastatic colon cancer to liver: 2. Subacute intestinal obstruction: Plan: Patient showing excellent progression, SBO has resolved. Plan to continue GI soft diet as outpatient, I will recommend that he takes MiraLAX once or twice a day to keep bowel movements soft and to prevent further episodes of SBO. He shows understanding agrees with the plan I have discussed the plan with the medical team and they agree after medical optimization and ensuring that patient will be able to tolerate p.o. medication he will likely be discharged home to follow-up as outpatient with medical oncology PDMP PDMP Reviewed: Not Reviewed Attestations 2 Medical Necessity Statement*: Per medical team Coding Level of Care Code Acute Code for Chg Fwd Diagnoses Metastatic colon cancer to liver C18.9; C78.7 Subacute intestinal obstruction K56.609
--- NOTE | 2025-05-31 09:37 | P.DS_ITS ---
Discharge Providers Date of Admission: 05/30/25 10:56 Date of Discharge: May 31, 2025 Attending Provider at Admission: Merline Aguilar MD Attending Provider at Discharge: Blas Hurt MD Primary Care Provider: Al Álvarez MD Diagnoses at Discharge Discharge Diagnosis 1. Metastatic colon cancer to liver: 2. Subacute intestinal obstruction: Reason for Visit Reason for Visit: vomitting Brief History: J Per DORA yuval Voss is a 70 year old male with a history of stage 4 colon cancer with hepatic metastases, prior extensive colon surgery with ostomy, atrial fibrillation, hypertension, HLD, asthma, restrictive lung disease due to kyphoscoliosis, obstructive sleep apnea (TAYLOR), history of Clostridioides difficile (C. diff) infection, and former tobacco use, chronic pain, presenting with 2 days of nausea and vomiting and inability to keep down medications for approximately 3?4 days. Reports abdominal pain and palpitations, denies chest pain and fevers at home. Multiple recent falls (four in three days) with development of a leg hematoma; has been largely bedbound since. An nasogastric ( NG) tube was placed for decompression; small bowel obstruction/enteritis versus ileus discussed. Patient receives oncology care at [facility] and is awaiting transfer there. Home oral vancomycin is taken chronically for C. diff per prior clinician; currently unable to take oral meds. Home rivaroxaban (Xarelto) for atrial fibrillation not taken in the last few days due to vomiting. Recent chemo pills were obtained but not taken due to obstruction. In the emergency department, heart rate was in the 120s with atrial fibrillation with rapid ventricular response; treated with intravenous (IV) fluids, antiemetics, fentanyl, IV digoxin, and started on an amiodarone infusion. No reported prior venous thromboembolism. Duration off medications reported as 3?4 days. Hospital Course Hospital Course Patient was roomed to the hospital for evaluation and management of nausea and vomiting and was found to have small bowel obstruction. Given his ongoing cancer treatment at [facility] for colon cancer possible transfer was sought. Patient was accepted but was awaiting bed. As he continued to have nausea and vomiting surgery was consulted and he was started on conservative treatment with bowel rest with NG tube placement after which he progressively improved. CT was concerning for mild enteritis though C. difficile was ruled out. He did have TALON on admission which resolved with IV hydration. Patient has continued to gradually improve and is able to tolerate mechanical soft diet today. He has been discharged back home in hemodynamically stable condition on mechanical soft diet after physical therapy evaluation has been done with given his history of recurrent falls as an outpatient. Patient did have outpatient imaging which ruled out any fracture. There is concern for possible hematoma as an outpatient his hemoglobin remained stable he was started on Xarelto. Physical Exam Narrative: General: Alert oriented x3, patient seen lying comfortably and NGT removed HEENT: Normocephalic, atraumatic, EOMI, breathing at room air Cardio: Regular rate rhythm, normal S1-S2, no murmurs rubs gallops, JVD normal Respiratory: Good bilateral air entry, no wheezes no rhonchi appreciated GI: Abdomen soft, nontender, nondistended, normoactive bowel sounds present all 4 quadrants, colostomy working Neuro: Cranial nerves II to XII intact, strength 5/5, sensation 5/5, no gross neurological deficit Behavior: Appropriate and cooperative Extremities: Pulses 2+, no edema, no cyanosis Skin: Visible skin intact, no rashes Discharge Data Studies Completed and Pending Completed Studies During Hospitalization Category Date Time Status CT abdomen pelvis w con* [id number] Stat Cat Scan 05/27/25 11:34 Completed CXRP [XR chest 1V portable [id number]] Routine Exams 05/28/25 13:12 Completed XR abdomen 1V* [id number] Stat Exams 05/29/25 14:57 Completed XR abdomen 1V* [id number] Stat Exams 05/29/25 17:56 Completed XR abdomen 1V* [id number] Stat Exams 05/30/25 06:50 Completed XR chest 1V portable [id number] Stat Exams 05/27/25 11:34 Completed XR chest 1V portable [id number] Stat Exams 05/27/25 14:12 Completed Radiology Impressions Abdomen/Pelvis CT 05/27/25 11:34 IMPRESSION: 1. Similar-appearing RIGHT hepatic metastasis. 2. Air-fluid level in the stomach with fluid distention. A few loops of enhancing slightly dilated loops of small bowel in the LEFT upper quadrant and pelvis can be seen with small bowel enteritis or early partial obstruction. 3. Partial colectomy with colostomy in the RIGHT lower quadrant which appears patent. 4. Prostate enlargement with heterogeneous enhancement. Recommend correlation PSA. 5. No other significant changes compared to the recent study 05/05/2025 Chest X-Ray 05/28/25 13:12 IMPRESSION: 1. Unchanged position of the NG tube, with the tip in the left upper quadrant. The tube likely overlies the body of the stomach. 2. No acute disease otherwise noted in the chest. Abdomen X-Ray 05/30/25 06:50 IMPRESSION: Nonspecific abdominal findings. No convincing evidence of bowel obstruction on this portable radiograph. Laboratory Results WBC 5.71 10^3/uL (3.29-11.43) 05/31/25 04:16 RBC 3.32 10^6/uL (3.85-5.65) L 05/31/25 04:16 Hgb 10.00 g/dL (11.27-16.99) L 05/31/25 04:16 Hct 31.3 % (37-53) L 05/31/25 04:16 MCV 94.3 fl (82-101) 05/31/25 04:16 MCH 30.1 pg (27-33) 05/31/25 04:16 MCHC 31.9 g/dL (30-55) 05/31/25 04:16 RDW 15.1 % (12.1-15.1) 05/31/25 04:16 Plt Count 211 10^3/cmm (157-399) 05/31/25 04:16 MPV 9.9 fL (7.4-10.4) 05/31/25 04:16 Neut % (Auto) 62.7 % 05/31/25 04:16 Lymph % (Auto) 19.1 % 05/31/25 04:16 Henderson % (Auto) 10.5 % 05/31/25 04:16 Eos % (Auto) 6.5 % 05/31/25 04:16 Baso % (Auto) 0.5 % 05/31/25 04:16 Neut # (Auto) 3.58 10^3/uL (1.8-7.7) 05/31/25 04:16 Lymph # (Auto) 1.1 10^3/uL (0.8-4.8) 05/31/25 04:16 Henderson # (Auto) 0.6 10^3/uL (0.2-0.9) 05/31/25 04:16 Eos # (Auto) 0.4 10^3/uL (0.0-0.8) 05/31/25 04:16 Baso # (Auto) 0.0 10^3/uL (0.0-0.1) 05/31/25 04:16 Nucleated RBC % (auto) 0 % 05/31/25 04:16 Nucleated RBCs # 0.0 /100WBC 05/31/25 04:16 Sodium 134 mmol/L (136-145) L 05/31/25 04:08 Potassium 4.2 mmol/L (3.5-5.1) 05/31/25 04:08 Chloride 98 mmol/L (98-107) 05/31/25 04:08 Carbon Dioxide 27 mmol/L (22-29) 05/31/25 04:08 Anion Gap 13.2 (5-19) 05/31/25 04:08 BUN 13 mg/dL (8-23) 05/31/25 04:08 Creatinine 0.8 mg/dL (0.7-1.2) 05/31/25 04:08 GFR Calculation 95.6 mL/min (90-130) 05/31/25 04:08 Glucose 102 mg/dL (65-115) 05/31/25 04:08 Calculated Osmolality 278 mOsm/kg (285-295) L 05/31/25 04:08 Calcium 9.2 mg/dL (8.5-10.5) 05/31/25 04:08 Magnesium 2.1 mg/dL (1.7-2.3) 05/28/25 13:22 Total Bilirubin 0.5 mg/dL (0.15-1.2) 05/31/25 04:08 AST 24 U/L (0-40) 05/31/25 04:08 ALT 17 U/L (0-41) 05/31/25 04:08 Alkaline Phosphatase 88 U/L (40-130) 05/31/25 04:08 Total Protein 5.8 g/dL (6.6-8.7) L 05/31/25 04:08 Albumin 3.2 g/dL (3.5-5.2) L 05/31/25 04:08 Globulin 2.6 g/dL (1.3-4.6) 05/31/25 04:08 Lipase 62 U/L (13-60) H 05/27/25 11:20 Urine Color Yellow (Yellow) 05/27/25 14:48 Urine Appearance Clear (CLEAR) 05/27/25 14:48 Urine pH 6.5 (5-7) 05/27/25 14:48 Ur Specific Cisco 1.087 (1.005-1.030) H 05/27/25 14:48 Urine Protein 1+ (Negative) A 05/27/25 14:48 Urine Glucose (UA) Negative (Normal) 05/27/25 14:48 Urine Ketones Trace (Negative) 05/27/25 14:48 Urine Blood Negative (Negative) 05/27/25 14:48 Urine Nitrate Negative (Negative) 05/27/25 14:48 Urine Bilirubin Negative (Negative) 05/27/25 14:48 Urine Urobilinogen 1.0 mg/dL (Negative) 05/27/25 14:48 Ur Leukocyte Esterase Negative (Negative) 05/27/25 14:48 Urine RBC 0-2 /hpf (0-2) 05/27/25 14:48 Urine WBC 0-5 /hpf (0-5) 05/27/25 14:48 Ur Squamous Epith Cells 0-5 /hpf (0-5) 05/27/25 14:48 Amorphous Sediment Not Reportable 05/27/25 14:48 Urine Bacteria None seen /hpf (NONE) 05/27/25 14:48 Hyaline Casts 0.40 /lpf 05/27/25 14:48 Digoxin 0.8 ng/mL (0.6-1.2) 05/27/25 11:30 C. difficile (PCR) Negative (Negative) 05/29/25 21:32 Vitals Last Vital Signs Temp 97.0 F L 05/31/25 07:56 Pulse 74 05/31/25 08:26 Resp 16 05/31/25 08:26 BP 117/63 05/31/25 07:56 Pulse Ox 98 05/31/25 08:26 O2 Del Method Nasal Cannula 05/31/25 08:26 O2 Flow Rate 2 05/31/25 08:26 Discharge Plan Discharge Patient Disposition: Home Condition: Stable Prescriptions: Continued saw palmetto 500 mg capsule 500 mg PO DAILY vancomycin 125 mg capsule 125 mg PO DAILY testosterone 20.25 mg/1.25 gram (1.62 %) gel in metered-dose pump 3 pump topical DAILY clobetasol 0.05 % cream 1 applic TOPICAL BID PRN (Reason: hands) pantoprazole [Protonix] 40 mg tablet,delayed release (DR/EC) 40 mg PO QAM Qty: 60 0RF sucralfate 1 gram tablet 1 g PO BID midodrine 5 mg tablet See Rx Instructions .ROUTE .COMPLEX Rx Instructions: TAKE 1 TABLET BY MOUTH THREE TIMES DAILY. HOLD FOR SBP MORE THAN 120 MMHG. allopurinol 300 mg tablet 300 mg PO DAILY metoprolol tartrate 25 mg tablet 25 mg PO Q12H Fruzaqla 5 mg capsule See Rx Instructions .ROUTE .COMPLEX Rx Instructions: Take 1 capsule by mouth daily for 3 weeks, then off 1 week. gabapentin 300 mg capsule 300 mg PO TID PRN (Reason: nerve pain) digoxin 125 mcg (0.125 mg) tablet 0.125 mg PO DAILY epinephrine 0.3 mg/0.3 mL auto-injector See Rx Instructions .ROUTE .COMPLEX Rx Instructions: INJECT CONTENTS OF 1 PEN NEEDED FOR ALLERGIC REACTION albuterol sulfate 90 mcg/actuation HFA aerosol inhaler 2 puff INHALATION Q4H PRN (Reason: Shortness Of Breath) oxycodone 10 mg tablet 10 mg PO Q6H PRN (Reason: Pain) atorvastatin 40 mg Tablet 40 mg PO BEDTIME Qty: 30 0RF aspirin 81 mg Tablet,Delayed Release (Dr/Ec) 81 mg PO DAILY Qty: 30 0RF divalproex [Depakote] 500 mg tablet,delayed release (DR/EC) 500 mg PO TID Qty: 30 0RF amiodarone 200 mg tablet 200 mg PO DAILY Qty: 30 0RF trazodone 150 mg tablet 150 mg PO BEDTIME Qty: 30 0RF hydrocodone-acetaminophen 5-325 mg tablet 1 tab PO BID PRN (Reason: pain) Qty: 14 0RF Discharge Order = DC NOW: Discharge Order (Routine); Ordered 05/31/25 Ordered By: Blas Hurt Referrals: Al Álvarez MD [Primary Care Provider, Family Practice] - 4-7 days Referral Note: Please call tomorrow for an follow-up appointment within 4 to 7 days. As [facility] is closed due to holiday. Thank you! Discharge Diet: Advance as tolerated, As Directed and Soft Mechanical Discharge Activity: Resume usual activity and Increase activity as tolerated Patient Instructions: Acute Kidney Injury (DC), Colorectal Cancer (DC), Enteritis (DC), Opioid Safety, Patient Portal & Papa Instructions Activity Restrictions/Additional Instructions: Continue with mechanical soft diet for 3 to 4 days and advance her gradually to a regular diet. Continue with your [id number] stool softeners daily till the time you have 2-3 soft bowel movements. Follow-up with your primary care provider within next 1 week. Follow-up with your oncologist on set appointment. Discharge Attestations Time Spent in Discharge Care*: greater than 30 min Specific Discharge Activities: educating patient, educating and/or supporting family/caregiver, discussing with pcp/other providers, discussing with telephonic nurse case manager/social workers/dc planners, documenting/other paperwork and evaluating patient/reviewing data Status at Discharge: Cognitive status at discharge: cognitively intact , Behavioral status at discharge: cooperative , Functional status at discharge: uses cane/walker , Overall status at discharge: patient is back to baseline Quality Metrics Clinical Quality Measures [ No reported AMI, CVA or VTE this stay] Coding Level of Care Code 39917 Total time (in minutes) for Discharge: 65 Diagnoses Metastatic colon cancer to liver C18.9; C78.7 Subacute intestinal obstruction K56.609
--- NOTE | 2025-05-31 09:51 | PC.NURSE ---
[facility] center called for an update - update is given and due to provider discharging Charan today [facility] is going to remove him from the list to be transferred.
--- NOTE | 2025-05-31 11:37 | PC.NURSE ---
Addendum entered by Tessy Machado RN 05/31/25 11:39: Case management is called and she is setting up home health with therapy. Original Note: Provider is updated about Charan Voss, PT worked with him and he did stand and sit a few times for her. He told her that he didn't like our walkers so he would not walk for PT. PT did think he would benefit from home health and some therapy. Provider okay'd discharge.
--- NOTE | 2025-05-31 11:39 | PC.SOCIAL ---
*IMM* Completed, initialed, dated and timed in the chart. Copy received by patient.
[2025-05-31 12:00] VITALS: BP 135/63; PULSE 75; RESP 20; TEMP 36.2; O2SAT 98
[2025-05-31 12:29] VITALS: BP 135/63; PULSE 67; RESP 15; O2SAT 100
== END 2025-05-31 13:44 | disposition home or self-care (01) | DRG 389 ==
LOC: ER 05-29 18:17 → CSU 05-30 11:21
PROVIDERS: Internal Medicine; Admitting Provider Student in an Organized Health Care Education/Training Program; Emergency Provider Family Medicine; PCP Family Medicine; Visit Provider Student in an Organized Health Care Education/Training Program
DX: K56.609 Unspecified intestinal obstruction, unspecified as to partial versus complete obstruction (principal); C18.9 Malignant neoplasm of colon, unspecified; C78.7 Secondary malignant neoplasm of liver and intrahepatic bile duct; N17.9 Acute kidney failure, unspecified; F84.5 Asperger's syndrome; I48.0 Paroxysmal atrial fibrillation; I10 Essential (primary) hypertension; E78.5 Hyperlipidemia, unspecified; J45.909 Unspecified asthma, uncomplicated; M41.9 Scoliosis, unspecified; G47.33 Obstructive sleep apnea (adult) (pediatric); G89.29 Other chronic pain; W01.0XXA Fall on same level from slipping, tripping and stumbling without subsequent striking against object, initial encounter; S80.10XA Contusion of unspecified lower leg, initial encounter; N40.0 Benign prostatic hyperplasia without lower urinary tract symptoms; K52.9 Noninfective gastroenteritis and colitis, unspecified; N52.9 Male erectile dysfunction, unspecified; Z79.899 Other long term (current) drug therapy; Z79.01 Long term (current) use of anticoagulants; Z79.891 Long term (current) use of opiate analgesic; Z93.3 Colostomy status; Z87.891 Personal history of nicotine dependence; Z90.49 Acquired absence of other specified parts of digestive tract; Z86.16 Personal history of COVID-19
CPT/HCPCS: 36415; 71045; 74018; 74177; 80053; 80162; 81001; 83630; 83690; 83735; 85018; 85025; 87493; 93005; 96365; 96366; 96372; 96375; 97162; 97530; 99291; A4222; J0283; J1160; J1171; J1644; J2060; J2405; J2470; J2550; J3010; J3480; J7030; J7120; J9999; Q9963

== ENCOUNTER → 2025-06-09 09:03 | Outpatient (BNVA) | payer MEDICARE, SELFPAY | PROVIDERS: PCP Family Medicine; Visit Provider Dermatology | DX: L72.0 Epidermal cyst (principal); R20.8 Other disturbances of skin sensation; R23.8 Other skin changes | CPT/HCPCS: 10060; 99213 ==

== ENCOUNTER → 2025-06-11 09:57 | Outpatient (BNVA) | payer MEDICARE, SELFPAY | PROVIDERS: PCP Family Medicine; Visit Provider Internal Medicine Cardiovascular Disease | DX: I48.20 Chronic atrial fibrillation, unspecified (principal); Z79.82 Long term (current) use of aspirin; Q24.5 Malformation of coronary vessels; C18.9 Malignant neoplasm of colon, unspecified; C78.7 Secondary malignant neoplasm of liver and intrahepatic bile duct; Z87.891 Personal history of nicotine dependence | CPT/HCPCS: 99214 ==

== ENCOUNTER 2025-06-14 14:58 | Emergency (ER) | payer MEDICARE, SELFPAY ==
--- OUTSIDE RECORDS SUMMARY | 2024-10-23 06:20 | XMS_ITS ---
Author Organization [facility] Address [address] [place] [address] Care Team Providers Care Security System Installer Name Role Phone Kady Floyd Primary Care Provider [phone] Bala Wilson Unavailable [phone] KADY FLOYD Unavailable Unavailable Tonya Woodruff Unavailable REASON FOR VISIT 6M F/U W/CBC/ESTRADIOL/CMP/TESTOSTERONE/KUB Encounters Encounter Location Date Provider Diagnosis Counts Include [facility] [address] [place] [address], [place] [address] 10/23/2024 Tonya Woodruff Plan Of Treatment No Information Progress Notes * Charan KAMARA TDOB:1955 (70 yo M)Acc No.[id number]:10/23/2024 Progress Notes Patient: Naima durham Charan Chávez Provider: JIMENA Ramos :1955 A ge:69 Y S ex:Male Date:10/23/2024 Address:[address] [place], [place] [id number] Pcp:Kady Floyd Subjective: * Chief Complaints: * 6 M F/U W/CBC/ESTRADIOL/CMP/TESTOSTERONE/KUB Billing Information: * Procedure Codes: * Electronic signature of JIMENA Romeo on 06/14/2025 at 04:16 PM CDT Sign off status: Pending * Provider: JIMENA Ramos Date: 0 10/23/2024 Generated for Man palacios/Faxing/eTransmitting on: 0 06/14/2025 04:16 PM CDT
--- OUTSIDE RECORDS SUMMARY | 2024-10-27 06:20 | XMS_ITS ---
Author Organization [facility] Address [address] [place] [address] Care Team Providers Care Research Microbiologist Name Role Phone Kady Floyd Primary Care Provider Bala iWlson Unavailable [phone] KADY FLOYD Unavailable Unavailable Tonya Woodruff Unavailable REASON FOR VISIT 6M F/U W/CBC/ESTRADIOL/CMP/TESTOSTERONE/KUB Encounters Encounter Location Date Provider Diagnosis [facility] [address] [place] [address], [place] [address] 10/27/2024 Tonya Woodruff Plan Of Treatment No Information Progress Notes * Charan KAMARA TDOB:1955 (70 yo M)Acc No.[id number]:10/27/2024 Progress Notes Patient: Naima durham Charan Chávez Provider: JIMENA Ramos :1955 A ge:69 Y S ex:Male Date:10/27/2024 Address:[address] [place], [place] [id number] Pcp:Kady Floyd Subjective: * Chief Complaints: * 6 M F/U W/CBC/ESTRADIOL/CMP/TESTOSTERONE/KUB Billing Information: * Procedure Codes: * Electronic signature of JIMENA Romeo on 06/14/2025 at 04:17 PM CDT Sign off status: Pending * Provider: JIMENA Ramos Date: 0 10/27/2024 Generated for Man palacios/Faxing/eTransmitting on: 0 06/14/2025 04:17 PM CDT
--- OUTSIDE RECORDS SUMMARY | 2025-05-05 09:00 | XMS_ITS ---
Author Organization [facility] Address [address] [place] [address] Care Team Providers Care District Sales Representative Name Role Phone Kady Floyd Primary Care Provider Bala Wilson Unavailable [phone] KADY FLOYD Unavailable Unavailable Tonya Woodruff Unavailable REASON FOR VISIT 6m f/u w cbc,cmp, testosterone, estradiol , psa Encounters Encounter Location Date Provider Diagnosis [facility] [address] [place] [address], [place] [address] 05/05/2025 Tonya Woodruff Testicular hypofunction E29.1 ; Low libido R68.82 and Fatigue R53.83 Assessments Encounter Date Diagnosis (ICD Code) Assessment Notes Treatment Notes Treatment Clinical Notes Section Notes 05/05/2025 Testicular hypofunction (ICD-10 - E29.1) 05/05/2025 Low libido (ICD-10 - R68.82) 05/05/2025 Fatigue (ICD-10 - R53.83) Plan Of Treatment No Information Progress Notes * Charan KAMARA TDOB:1955 (70 yo M)Acc No.[id number]:05/05/2025 Progress Notes Patient: Charan Robison Provider: JIMENA Ramos :1955 A ge:70 Y S ex:Male Date:05/05/2025 Address:[address] [place], [place] [id number] Pcp:Kady Floyd Subjective: * Chief Complaints: * [...] Pending * Provider: JIMENA Ramos Date: 0 05/05/2025 Generated for Man Ho/Flaquito on: 0 06/14/2025 04:17 PM CDT
[2025-06-14 15:00] VITALS: BMI 29.2
[2025-06-14 15:08] VITALS: BP 103/68; PULSE 68; RESP 16; TEMP 37.2; O2SAT 96
--- NOTE | 2025-06-14 15:09 | XRR_ITS ---
PROCEDURE INFORMATION: Exam: XR Chest Exam date and time: 06/14/2025 3:17 PM Age: 70 years old Clinical indication: Pain; Angina pectoris; Prior surgery; Surgery date: 6+ months; Surgery type: Spine; HX of colon cancer; Additional info: Chest pain exertional TECHNIQUE: Imaging protocol: Radiologic exam of the chest. Views: 1 view. COMPARISON: CR XR chest 1V portable [id number] 05/28/2025 1:23 PM FINDINGS: Tubes, catheters and devices: Unchanged right internal jugular central venous catheter with the tip in the right atrial orifice. Unchanged thoracic spine fixation hardware. Lungs: Unremarkable. No consolidation. Pleural spaces: Unremarkable. No pleural effusion. No pneumothorax. Heart/Mediastinum: The cardiac silhouette remains borderline enlarged. Mediastinal size is within normal limits. Bones/joints: See Tubes, catheters and devices finding. XR/XR chest 1V portable [id number] IMPRESSION: No acute findings.
--- NOTE | 2025-06-14 15:10 | ECG_ITS ---
[employer] Test Date: 2025-06-14 Pat Name: Charan Voss Department: Room: Gender: Male Change Over: : 1955 Requested By: Demian Brown Order Number: [id number] Richard MD: Raiza Orourke M.D. Measurements Intervals Means Rate: 56 P: 0 MO: 0 QRS: 11 QRSD: 108 T: 46 QT: 416 QTc: 402 Interpretive Statements ATRIAL FIBRILLATION WITH SLOW VENTRICULAR RESPONSE SEPTAL MYOCARDIAL INFARCTION , OF INDETERMINATE AGE [40+ ms Q WAVE IN V1/V2] Compared to ECG 05/27/2025 11:16:20 Myocardial infarct finding now present Intraventricular conduction delay no longer present T-wave abnormality no longer present Possible ischemia no longer present Electronically Signed On 06-15-2025 07:59:11 CDT by Raiza Orourke M.D. [email or web address]
[2025-06-14 15:25] LABS: Hematocrit 40.1 % (37-53); Hemoglobin 13.00 g/dL (11.27-16.99); Mean Corpuscular HGB Conc 32.4 g/dL (30-55); Mean Corpuscular Hemoglobin 30.8 pg (27-33); Mean Corpuscular Volume 95.0 fl (82-101); Nucleated Red Blood Cells % 0 %; Platelet Count 242 10^3/cmm (157-399); Red Blood Count 4.22 10^6/uL (3.85-5.65); White Blood Count 6.25 10^3/uL (3.29-11.43)
--- NOTE | 2025-06-14 15:33 | ED_ITS ---
HPI - Chest Pain 2 General: Chief Complaint: Chest Pain Stated Complaint: hypotension - chest pain History of Present Illness: 70 year old male with a history of stage 4 colon cancer with hepatic metastases, prior extensive colon surgery with ostomy, atrial fibrillation, hypertension, HLD, asthma, restrictive lung disease due to kyphoscoliosis, obstructive sleep apnea (TAYLOR), history of Clostridioides difficile (C. diff) infection, and former tobacco use, chronic pain, presenting to the emergency department with onset since this morning upon awakening of nonspecific weakness and fatigue, reports that he was ambulating from bed to chair with physical therapist using his walker when he started developing right-sided chest pain described as pressure and radiating into his right jaw, reports that it relieved over time with rest and sitting down, reports that when EMS arrived his symptoms had almost resolved and he did not receive any fluids or aspirin/nitroglycerin by EMS, was noted to be hypotensive by EMS at the scene 80s over 50s which spontaneously improved into 100/60 range prior to arrival to the ED. No medications given prehospital, patient took a baby aspirin this morning, he is compliant with his Xarelto, he had a history of a cardiac angiogram 12 years ago but denies any history of intrinsic CAD other than a known history of atrial fibrillation on digoxin. Denies recent fevers, cough, shortness of breath, denies leg swelling, reports generalized mild weight loss over the last few months without significant weight gain. Related Data Home Medications ?Medication ?Instructions ?Recorded ?Confirmed saw palmetto 500 mg capsule 500 mg PO DAILY 11/15/20 0 06/11/25 gabapentin 300 mg capsule 300 mg PO TID PRN nerve pain 02/04/23 06/11/25 albuterol sulfate 90 mcg/actuation 2 puff inhalation Q 4H PRN 10/08/24 06/11/25 aerosol inhaler Shortness Of Breath digoxin 125 mcg (0.125 mg) tablet 0.125 mg PO DAILY 06/11/25 epinephrine 0.3 mg/0.3 mL See Rx Instructions .Route . COMPLEX 10/08/24 06/11/25 injection, auto-injector oxycodone 10 mg tablet 10 mg PO Q6H PRN Pain 06/11/25 vancomycin 125 mg capsule 125 mg PO DAILY 12/04/2409/23 clobetasol 0.05 % topical cream 1 applic topical BID P RN hands 02/09/25 05/28/25 testosterone 3 pump topical DAILY 5 06/11/25 allopurinol 300 mg tablet 300 mg PO DAILY 04/14/2509/23 fruquintinib 5 mg capsule See Rx Instructions .Route . COMPLEX 04/14/25 05/28/25 (Fruzaqla) sucralfate 1 gram tablet 1 g PO BID 04/14/25 06/11/25 lovastatin 40 mg tablet 40 mg PO DAILY 06/11/2505/31 Previous Rx's ?Medication ?Instructions ?Recorded pantoprazole 40 mg tablet,delayed 40 mg PO QAM #60 tab s 02/12/25 release (Protonix) aspirin 81 mg tablet,delayed 81 mg PO DAILY #30 tabs 0 03/11/25 release trazodone 150 mg tablet 150 mg PO BEDTIME #30 tabs 0 03/11/25 amiodarone 200 mg tablet 200 mg PO DAILY #90 tabs 09/23 midodrine 5 mg tablet 5 mg PO TID #270 tabs rivaroxaban 20 mg tablet (Xarelto) 20 mg PO DAILY #90 tabs 06/11/25 Allergies Allergy/AdvReac Type Severity Reaction Status Date / Time tomato Allergy Severe ADR-Gastrointestinal Verified 06/11/25 10:09 Upset apixaban Allergy Unknown Headaches Verified 06/11/25 10:09 blackberry Allergy Unknown ADR-Diarrhe Verified 06/11/25 10:09 a blueberry Allergy Unknown ADR-Diarrhe Verified 06/11/25 10:09 a egg Allergy Unknown DIARRHEA, Verified 06/11/25 10:09 VOMITING AND STOMACH CRAMPING raspberry Allergy Unknown ADR-Diarrhe Verified 06/11/25 10:09 a strawberry Allergy Unknown ADR-Diarrhe Verified 06/11/25 10:09 a oats Allergy DIARRHEA Verified 06/11/25 10:09 Opioids - Morphine Analogues Allergy ADR-Chest Verified 06/11/25 10:09 Pain caffeine AdvReac Unknown PALPITATION Verified 06/11/25 10:09 S apple AdvReac DIARRHEA, Verified 06/11/25 10:09 VOMITING AND CRAMPING meperidine (From Demerol) AdvReac EXCESSIVE Verified 06/11/25 10:09 SEDATION morphine AdvReac HALLUCINATI Verified 06/11/25 10:09 ONS berries Allergy Unknown Unknown Uncoded 06/11/25 10:09 FRYE Allergy Unknown Diarrhea Uncoded 06/11/25 10:09 raw tomatoes Allergy Unknown ADR-Gastrointestinal Uncoded 06/11/25 10:09 Upset [facility] ED 2 PFSH: Medical History Hydrops of gallbladder Atrial fibrillation with rapid ventricular response Elevated troponin Hypotension Orthostatic hypotension Complication of ostomy Ventilator dependent Intra-abdominal abscess post-procedure Metastatic colon cancer to liver Malignant neoplasm of splenic flexure Renal hematoma Colostomy complication C. 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 (~08/2022) hospitalized in [place] Chronic sinusitis of both maxillary sinuses Gout Asperger syndrome mild Dyslipidemia Degenerative joint disease (DJD) of lumbar spine Obstructive sleep apnea Chronic low back pain Substernal goiter Asthma Restrictive lung disease due to kyphoscoliosis Suspected exposure to asbestos Allergies Right renal stone Testosterone deficiency On TRT for 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 Erectile dysfunction Opioid contract exists previous Chronic pain syndrome Surgical History Hx of bilateral cataract extraction History of colostomy (11/01/22) Colostomy revision for control of bleeding History of exploratory laparotomy (10/15/22) Exploratory laparotomy with partial colon resection and with end colostomy formation Status post left hemicolectomy (10/08/22) laparoscopic converted to open, with splenic flexure takedown and right colon mobilization, primary anastamosis History of back surgery History of shoulder surgery History of appendectomy H/O arthroscopic knee surgery H/O ankle fusion H/O wrist surgery S/P ureteral stent placement Family History Grandfather CAD (coronary artery disease) Family/Other Cancer Grandmother Dementia Stroke Mother Lung disease Other Hypertension Denies family history of Rheumatoid arthritis Diabetes Lupus Clotting disorder Hyperlipidemia Chronic kidney disease (CKD) Suicide Anesthesia complication Bleeding disorder Social History Smoking and tobacco/nicotine status: former use of tobacco/nicotine Quit status (tobacco/nicotine): has quit using Year quit tobacco: 1975 [id number] Second hand smoke exposure: Yes Alcohol intake: never Substance/Drug Use: never Lives independently: Yes Current occupational status: retired Pets and animals: Yes Do you think of yourself as: Straight/Heterosexual Current gender identity: Male Physical Exam 2 Const: COMMON NORMALS: no acute distress, patient oriented x3 and healthy appearing HENMT: COMMON NORMALS: normocephalic and atraumatic HEAD & SCALP: n ormocephalic and atraumatic Eye: COMMON NORMALS: Equal, round and reactive pupils present and EOMs intact bilaterally PUPIL: Yes Equal, round and reactive pupils present Neck/C-Spine: COMMON NORMALS: full ROM and supple Chest: COMMONS NORMALS: normal inspection of the chest and normal palpation of entire chest wall Resp: COMMON NORMALS: normal respiratory effort, No retractions, No use of accessory muscles and clear to auscultation bilaterally AUSCULTATION: clear to auscultation bilaterally Cardio: COMMON NORMALS: regular rate, S1 normal heart sound present, S2 normal heart sound present and No murmurs present (Cardio) RATE: regular rate R HYTHM: abnormal rhythm HEART SOUNDS: S1 normal heart sound present, S2 normal heart sound present and no murmurs PERIPHERAL PULSES: radial pulses present and dorsalis pedis present OTHER: no b/l LE edema GI: COMMON NORMALS: Normal to inspection, nondistended, normoactive bowel sounds present, Soft to palpation, non-tender and no masses PALPATION: Yes Soft to palpation Extremity: COMMON NORMALS: normal to inspection and full ROM Neuro: COMMON NORMALS: patient oriented x3, moves all extremities and no focal motor deficits Psych: COMMON NORMALS: mental status grossly normal, Normal thought process present and cooperative THOUGHT PROCESS: Normal thought process present Skin: COMMON NORMALS: no rashes or lesions noted and no wounds GENERAL SKIN EXAM: no rashes or lesions noted Course 2 Reevaluation(s): Reevaluation #1: Patient reevaluated at 1800, repeat Trope stable, still asymptomatic, BP stable during period of ER observation. I did speak with cardiology to discuss options, given that the patient's chest pain is resolved, his EKG shows no evidence of acute ischemia, his troponin is stable, and he has a recent stress test 3 months ago as well as good outpatient cardiology follow-up with an appointment 3 days ago, cardiology does feel it would be reasonable for him to follow-up with his outpatient human machine interface engineer. Patient is okay with this plan of care, agrees that his chest pain is resolved, stable for discharge with strict return precautions for recurrent or worsening symptoms. Reevaluation #2: Patient arranged for cardiac follow-up on the at 10:15 AM, informed by RN Consultations: Consultation #1: Spoke to Dr. Orourke of cardiology, reviewed the results of the patient's stress test EKG and troponin levels, he reports that he is happy to see the patient in consultation if he is admitted but that given his reassuring workup and resolved symptoms it would also be reasonable for him to follow-up with his outpatient human machine interface engineer Vital Signs: Vital signs: Vital Signs Temperature 98.9 F 06/14/25 15:08 Pulse Rate 51 L 06/14/25 18:45 Respiratory Rate 14 06/14/25 18:45 Blood Pressure 119/72 06/14/25 18:45 Pulse Oximetry 93 06/14/25 18:45 Oxygen Delivery Me thod Room Air 06/14/25 16:45 MDM - Chest Pain Medical Decision Making Patient is 70-year-old male history of hypertension hyperlipidemia PVD, obesity, scoliosis status post back surgery, chronic pain, A-fib on digoxin and Xarelto, presenting to the emergency department with exertional right-sided chest pain rating to the jaw that relieved with rest, hypotensive at the scene but now more normotensive, currently chest pain-free in the emergency department, plan for IV fluids given patient appears mildly hypovolemic, 3 doses baby aspirin given he already took 1 earlier today, EKG showing mildly slow A-fib with nonspecific ST- T changes without STEMI criteria, chest x-ray, heart score high risk with mildly elevated troponin which is flat on repeat, he did have a stress test on February which showed no significant evidence of ischemia, he followed up with his human machine interface engineer 3 days ago although note not available for review. Differential Diagnosis Likely acute myocardial infarction (hypotension, unstable angina, liliam/dehydration, PE less likely, pancreatitis, gerd/esophagitis, pneumonia) Lab Data Labs showing no leukocytosis, no anemia, troponin mildly elevated but stable on repeat 06/14/25 14:39 06/14/25 14:39 Radiology Impressions Chest X-Ray 06/14/25 15:09 IMPRESSION: No acute findings. Laboratory Results WBC 6.25 10^3/uL (3.29-11.43) 06/14/25 14:39 RBC 4.22 10^6/uL (3.85-5.65) 06/14/25 14:39 Hgb 13.00 g/dL (11.27-16.99) 06/14/25 14:39 Hct 40.1 % (37-53) 06/14/25 14:39 MCV 95.0 fl (82-101) 06/14/25 14:39 MCH 30.8 pg (27-33) 06/14/25 14:39 MCHC 32.4 g/dL (30-55) 06/14/25 14:39 RDW 15.8 % (12.1-15.1) H 06/14/25 14:39 Plt Count 242 10^3/cmm (157-399) 06/14/25 14:39 MPV 10.2 fL (7.4-10.4) 06/14/25 14:39 Neut % (Auto) 51.3 % 06/14/25 14:39 Lymph % (Auto) 32.3 % 06/14/25 14:39 [place] % (Auto) 8.6 % 06/14/25 14:39 Eos % (Auto) 6.4 % 06/14/25 14:39 Baso % (Auto) 1.1 % 06/14/25 14:39 Neut # (Auto) 3.20 10^3/uL (1.8-7.7) 06/14/25 14:39 Lymph # (Auto) 2.0 10^3/uL (0.8-4.8) 06/14/25 14:39 [place] # (Auto) 0.5 10^3/uL (0.2-0.9) 06/14/25 14:39 Eos # (Auto) 0.4 10^3/uL (0.0-0.8) 06/14/25 14:39 Baso # (Auto) 0.1 10^3/uL (0.0-0.1) 06/14/25 14:39 Nucleated RBC % (auto) 0 % 06/14/25 14:39 Nucleated RBCs # 0.0 /100WBC 06/14/25 14:39 PT 26.80 SECONDS (12.1-14.9) H 06/14/25 14:39 INR 2.32 (0.8-1.2) H 06/14/25 14:39 APTT 41.6 SECONDS (23.9-36.7) H 06/14/25 14:39 Sodium 141 mmol/L (136-145) 06/14/25 14:39 Potassium 4.2 mmol/L (3.5-5.1) 06/14/25 14:39 Chloride 102 mmol/L (98-107) 06/14/25 14:39 Carbon Dioxide 24 mmol/L (22-29) 06/14/25 14:39 Anion Gap 19.2 (5-19) H 06/14/25 14:39 BUN 11 mg/dL (8-23) 06/14/25 14:39 Creatinine 0.9 mg/dL (0.7-1.2) 06/14/25 14:39 GFR Calculation 83.4 mL/min (90-130) L 06/14/25 14:39 Glucose 100 mg/dL (65-115) 06/14/25 14:39 Calculated Osmolality 291 mOsm/kg (285-295) 06/14/25 14:39 Calcium 9.5 mg/dL (8.5-10.5) 06/14/25 14:39 Total Bilirubin 0.4 mg/dL (0.15-1.2) 06/14/25 14:39 AST 22 U/L (0-40) 06/14/25 14:39 ALT 14 U/L (0-41) 06/14/25 14:39 Alkaline Phosphatase 94 U/L (40-130) 06/14/25 14:39 Troponin T Baseline 26 ng/L (0-15) H 06/14/25 14:39 Troponin T 120 Minute 25.69 ng/L (0-15) H 06/14/25 16:16 Delta Troponin T -0.31 ABS# (0-10) L 06/14/25 16:16 NT-Pro-B Natriuret Pep 1828 pg/mL (0-125) H 06/14/25 14:39 Total Protein 7.1 g/dL (6.6-8.7) 06/14/25 14:39 Albumin 3.8 g/dL (3.5-5.2) 06/14/25 14:39 Globulin 3.3 g/dL (1.3-4.6) 06/14/25 14:39 Digoxin 1.0 ng/mL (0.6-1.2) 06/14/25 14:39 All radiology interpretation(s) finalized by discharge ED provider radiology interpretation(s): Chest x-ray independently interpreted by myself as negative for significant pulmonary edema or pleural effusions, no pneumonia, no pneumothorax, mild central pulmonary vascular congestion EKG Data EKG 1: I personally reviewed and interpreted this EKG as follows: EKG interpretation date: 06/14/25 EKG interpretation time: 15:08 Ischemic changes: non-specific ST-T wave changes Interpretation: Atrial fibrillation with slow ventricular response of 56 bpm, poor R wave progression, inferior Q waves to the lead III isolated, T wave flattening to aVL, no STEMI, QTc 407 ms EKG 2: I personally reviewed and interpreted this EKG as follows: EKG interpretation date: 06/14/25 EKG interpretation time: 17:09 Interpretation: EKG showing atrial fibrillation with slow response at 53 bpm, inferior T wave flattening stable, no STEMI, no significant dynamic change, QTc 433 ms Clincial Decision Support The following clinical decision support tools were used to aid in care of the patient HEART Score -> History: Moderately Suspicious, EKG: Non-specific Changes, Age: 65 or more yrs, Risk Factors: >/=3 Risk Factors (HTN, HLD, PVD, obesity), Troponin: Baseline Trop 16-45 ng/L. Resulting HEART Score: 7. Discharge Plan Discharge Patient Disposition: Home Clinical Impression: Chest pain Condition: Stable Prescriptions: No Action saw palmetto 500 mg capsule 500 mg PO DAILY lovastatin 40 mg tablet 40 mg PO DAILY amiodarone 200 mg tablet 200 mg PO DAILY Qty: 90 3RF Xarelto 20 mg tablet 20 mg PO DAILY Qty: 90 3RF Rx Instructions: must administer with evening meal midodrine 5 mg tablet 5 mg PO TID Qty: 270 3RF vancomycin 125 mg capsule 125 mg PO DAILY testosterone 20.25 mg/1.25 gram (1.62 %) gel in metered-dose pump 3 pump topical DAILY clobetasol 0.05 % cream 1 applic TOPICAL BID PRN (Reason: hands) pantoprazole [Protonix] 40 mg tablet,delayed release (DR/EC) 40 mg PO QAM Qty: 60 0RF sucralfate 1 gram tablet 1 g PO BID allopurinol 300 mg tablet 300 mg PO DAILY Fruzaqla 5 mg capsule See Rx Instructions .ROUTE .COMPLEX Rx Instructions: Take 1 capsule by mouth daily for 3 weeks, then off 1 week. gabapentin 300 mg capsule 300 mg PO TID PRN (Reason: nerve pain) digoxin 125 mcg (0.125 mg) tablet 0.125 mg PO DAILY epinephrine 0.3 mg/0.3 mL auto-injector See Rx Instructions .ROUTE .COMPLEX Rx Instructions: INJECT CONTENTS OF 1 PEN NEEDED FOR ALLERGIC REACTION albuterol sulfate 90 mcg/actuation HFA aerosol inhaler 2 puff INHALATION Q4H PRN (Reason: Shortness Of Breath) oxycodone 10 mg tablet 10 mg PO Q6H PRN (Reason: Pain) aspirin 81 mg Tablet,Delayed Release (Dr/Ec) 81 mg PO DAILY Qty: 30 0RF trazodone 150 mg tablet 150 mg PO BEDTIME Qty: 30 0RF Discharge Orders: Discharge ED (Routine); Ordered 06/14/25 Ordered By: Demian Brown Referrals: Al Álvarez MD [Primary Care Provider, Family Practice] Uche Singh MD [Physician, Cardiology] - 06/23/25 10:15 am Patient Instructions: Chest Pain (ED), Patient Portal & Papa Instructions Print Language: Serbian Coding Level of Care Code ED Head Sulfide Operator for Scarlett San
[2025-06-14 15:40] LABS: INR 2.32 (0.8-1.2); Prothrombin Time 26.80 SECONDS (12.1-14.9)
[2025-06-14 15:41] LABS: Partial Thromboplastin Time 41.6 SECONDS (23.9-36.7)
[2025-06-14 15:50] LABS: Troponin(5th) Baseline 26 ng/L (0-15)
[2025-06-14 16:04] LABS: Alanine Aminotransferase 14 U/L (0-41); Albumin Level 3.8 g/dL (3.5-5.2); Alkaline Phosphatase 94 U/L (40-130); Anion Gap 19.2 (5-19); Aspartate Amino Transferase 22 U/L (0-40); Blood Urea Nitrogen 11 mg/dL (8-23); Calcium 9.5 mg/dL (8.5-10.5); Carbon Dioxide 24 mmol/L (22-29); Chloride 102 mmol/L (98-107); Creatinine Clr Calc Pharmacy 103.2984; Globulin 3.3 g/dL (1.3-4.6); Glucose 100 mg/dL (65-115); NT Pro B Type Natriuretic Pept 1828 pg/mL (0-125); Osmolality Calculated 291 mOsm/kg (285-295); Potassium 4.2 mmol/L (3.5-5.1); Sodium 141 mmol/L (136-145); Total Protein 7.1 g/dL (6.6-8.7)
[2025-06-14 16:16] LABS: Digoxin 1.0 ng/mL (0.6-1.2)
[2025-06-14 16:17] VITALS: BP 101/64; PULSE 56; RESP 16; O2SAT 94
--- OUTSIDE RECORDS SUMMARY | 2025-06-14 16:17 | XMS_ITS | Encounter Summary ---
Author Organization [employer] Address [address] [place] [address] Care Team Providers Care Timber Sprinkler Name Role Phone Favian Maldonado MD, Shant Humphreys Primary Care Provider Encounter Details Date Type Department Care Team (Late st Contact Info) Description 11/25/2022 Lab Requisition [facility] Laboratory Services [address] [place] [address] Andre Mary, MADHU [address] [facility] [address] [place] [address] Social History Tobacco Use Types Packs/Day Years Used Date Smoking Tobacco: Never Assessed Sex and Gender Information Value Date Recorded Sex Assigned at Not on file Legal Sex Male 9:45 AM THREAD SEPARATOR Gender Identity Not on file Sexual Orientation Not on file documented as of this encounter Plan of Treatment Not on file documented as of this encounter Procedures Procedure Name Priority Date/Time Associated Diagnosis Comments RESPIRATORY PATHOGEN PCR PANEL Routine 11/25/2022 9:47 AM THREAD SEPARATOR documented in this encounter Results * RESPIRATORY PATHOGEN PCR PANEL (11/25/2022 9:47 AM THREAD SEPARATOR) Respiratory Pathogen PCR Panel NOT DETECTED No respiratory pathogen nucleic acids detected. 11/25/2022 11:29 AM THREAD SEPARATOR [place] [facility] COVID-19 PCR NOT DETECTED Not Detected 11/25/2022 11:29 AM THREAD SEPARATOR [facility] Upper Respiratory ENTIRE NASOPHARYNX / Unknown Collection / Unknown 11/25/2022 9:47 AM THREAD SEPARATOR 11/25/2022 10:36 AM THREAD SEPARATOR Narrative [facility] - 11/25/2022 11:29 AM THREAD SEPARATOR The Film Array Respiratory Panel (RP2.1) is [...] parapertussis Chlamydophila pneumoniae Mycoplasma pneumoniae Andre Mary [facility] MICROBIOLOGY - GENERAL O RDERABLES Final Result [id number] [address] [place] [id number] documented in this encounter Visit Diagnoses Not on filedocumented in this encounter Additional Health Concerns Infection Onset Date Last Indicated Resolved Time C Diff 11/17/2022 11/17/2022 01/16/2023 1:16 AM CDT documented as of this encounter Care Teams Timber Sprinkler Relationship Specialty Start Date End Date Shant Ballesteros Jr., MD [address] [place] [address] PCP - General Family Practice 01/19/14 documented as of this encounter
--- OUTSIDE RECORDS SUMMARY | 2025-06-14 16:17 | XMS_ITS | Encounter Summary ---
Author Organization [facility] Address [address] [place] [address] Care Team Providers Care Process Controller Name Role Phone Favian Maldonado MD, Shant Humphreys Primary Care Provider Encounter Details Date Type Department Care Team (Late st Contact Info) Description 11/24/2022 Lab Requisition [facility] Laboratory Services [address] [place] [address] Andre Mary, MADHU [address] [facility] [address] [place] [address] Social History Tobacco Use Types Packs/Day Years Used Date Smoking Tobacco: Never Assessed Sex and Gender Information Value Date Recorded Sex Assigned at Not on file Legal Sex Male 9:45 AM STEEL HANDLER Gender Identity Not on file Sexual Orientation Not on file documented as of this encounter Plan of Treatment Not on file documented as of this encounter Procedures Procedure Name Priority Date/Time Associated Diagnosis Comments URINALYSIS W/REFLEX MICROSCOPIC Stat 11/24/2022 9:45 PM STEEL HANDLER documented in this encounter Results * (ABNORMAL) URINALYSIS WITH REFLEX MICROSCOPIC (11/24/2022 9:45 PM STEEL HANDLER) COLOR UA Yellow Pale to Dark Yellow 11/24/2022 11:07 PM STEEL HANDLER [facility] CLARITY UA Clear Clear 11/24/2022 11:07 PM STEEL HANDLER [facility] SPECIFIC GRAVITY UA 1.012 1.003 - 1.035 11/24/2022 11:07 PM [facility] PH UA 5.0 5.0 - 8.0 11/24/2022 11:07 PM [facility] LEUKOCYTE ESTERASE UA Negative Negative 11/24/2022 11:07 PM [facility] NITRITE UA Negative Negative 11/24/2022 11:07 PM [facility] PROTEIN UA Negative Negative 11/24/2022 11:07 PM [facility] GLUCOSE UA Negative Negative 11/24/2022 11:07 PM [facility] KETONES UA Negative Negative 11/24/2022 11:07 PM [facility] UROBILINOGEN UA <2.0 <2.0 mg/dL 11:07 PM [facility] BILIRUBIN UA Negative Negative 11/24/2022 11:07 PM [facility] BLOOD UA 1+(A) Negative 11/24/2022 11:07 PM [facility] WBC UA 0-2 0 - 2 /hpf 11/24/2022 11:07 PM [facility] RBC UA 0-2 0 - 2 /hpf 11/24/2022 11:07 PM [facility] BACTERIA UA Negative Negative /hpf 11/24/2022 11:07 PM [facility] EPITHELIAL CELLS, URINE 0-5 0 - 5 /hpf 11/24/2022 11:07 PM [facility] Urine URINE SPECIMEN OBTAINED BY CLEAN CATCH PROCEDURE / Unknown Collection / Unknown 11/24/2022 9:45 PM STEEL HANDLER 11/24/2022 10:55 PM STEEL HANDLER us Andre Mary ALUMNI COORDINATOR URINE ORDERABLES Final R esult [facility] CLIA # [id number] [id number] documented in this encounter Visit Diagnoses Not on filedocumented in this encounter Additional Health Concerns Infection Onset Date Last Indicated Resolved Time C Diff 11/17/2022 11/17/2022 01/16/2023 1:16 AM CDT documented as of this encounter Care Teams Process Controller Relationship Specialty Start Date End Date Shant Ballesteros Jr., MD [address] [place] [address] PCP - General Family Practice 01/19/14 documented as of this encounter
--- OUTSIDE RECORDS SUMMARY | 2025-06-14 16:17 | XMS_ITS | Patient Health Record ---
Author Organization [facility] Address [address] [place] [address] Care Team Providers Care Lime Boiler Name Role Phone Kady Merrill Primary Care Provider [phone] Bala Wilson Unavailable [phone] KADY MERRILL Unavailable Unavailable Migration, Provider Unavailable Unavailable Miki Johnston Unavailable [phone] Tonya Woodruff Unavailable Allergies Allergen (clinical drug [...] Notes UA Without [place], [place] - [address] Reviewed date:11/05/2024 02:44:16 PM Interpretation: Performing Lab: Notes/Report: Glucose 0 Bili 0 Ketones 0 Sp [place] 1.030 Blood 0 pH 5.5 Protein 1+ [...] IM Intramuscular 08/04/2020 Administered Influenza (whole), CPT 63804 Inactive Unknown 08/12/2018 Administered Pneumococcal polysaccharide PPV23 [...] Problem Status W/U Status Risk Notes Problem Adjustment disorder with depressed mood (25653739) Adjustment disorder with depressed mood (309.0) 2009 Problem resolved confirmed [id number]-98 [id number]- Problem Hand foot and mouth disease (379806171) Hand, foot, and mouth disease (074.3) 2012 Problem resolved confirmed [id number]- Problem Obstructive sleep apnea syndrome (54392594) Obstructive sleep apnea (adult) (pediatric) (327.23) 2016 Active confirmed [id number]- Problem Sebaceous cyst (696677069) Sebaceous cyst (706.2) 2013 Problem resolved confirmed [id number]- Problem Seborrhea (6907062516) Seborrhea (706.3) 2013 Problem resolved confirmed [facility]-[id number]- Problem Pressure ulcer, other site (707.09) 2017 Problem resolved confirmed [facility][id number]- Problem Fever (332480798) Fever, unspeci fied (780.60) 2011 Problem resolved confirmed [id number]- Problem Palpitations (45404300) Palpitations (785.1) 2012 Problem resolved confirmed [id number]- Problem Heartburn (20589293) Heartburn (787.1) 2014 Problem resolved confirmed [facility]-[id number] [id number]- Problem 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 Problem Calculus of kidney (44176540) Calculus of kidney (N20.0) Active confirmed Problem Nephrolithiasis (24733998) Nephrolithiasis (N20.0) Active confirmed Problem Benign hypertension (63374047) Hypertension, benign (I10) Active confirmed Problem Sleep apnea (90324672) Sleep apnea in adult (G47.30) Active confirmed Problem Screening for malignant neoplasm of prostate (153749144) Screening for prostate cancer (V76.44) 2017 Problem resolved confirmed [id number]- Problem Gout (80926929) Gout (M10.9) Active confirmed Problem Spasm (13599619) Muscle spasm (728.85) 2012 Problem resolved confirmed [facility][id number] [id number]- Problem Androgen deficiency (52187149) Testosterone deficiency (257.2) 2013 Problem resolved confirmed [facility][id number] [id number]- Problem Insomnia (998486356) Insomnia, unspecified type (G47.00) Active confirmed Problem Rash (995452551) Rash (782.1) 2010 Problem resolved confirmed [facility][id number] [id number]- Problem Depression (013906967) Depression (311) 2010 Problem resolved confirmed [facility]98 [id number]- Problem Low libido (5990515) Low libido (R68.82) Active confirmed Problem Dizziness (259512125) Dizziness (780.4) 0 2010 Problem resolved confirmed [facility][id number] [id number]- Problem Fatigue (91688037) Fatigue (R53.83) Active conf irmed Problem Atrial fibrillation (89074239) Atrial fibrillation, unspecified type (I48.91) Active confirmed Problem Seasonal allergy (813234627) Seasonal allergies (J30.2) Active confirmed Problem Hypertension (77921683) Hypertension (I10) Active confirmed Problem Asthma without statu s asthmaticus (69306128) Uncomplicated asthma, unspecified asthma severity, unspecified whether persistent (J45.909) Active confirmed Problem Ventricular tachycardia (13489791) Ventricular tachycardia (427.1) 2007 Problem resolved confirmed [id number][id number]- Problem Hypercholesterolemia (11903725) Hypercholesterolemia (272.0) 2012 Problem resolved confirmed [facility]98 [id number]- Problem Lumbosacral spondylosis without myelopathy (54965746) 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 Active confirmed [facility]-98 [id number]- Problem Memory loss (32299862) Memory loss (780.9) 2014 Problem resolved confirmed [facility]98 [id number]- Problem Secondary polycythemia (03374687) 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) 2017 Problem resolved confirmed [facility]98 [id number]- Problem Shortness of breath (558064654) Shortness of breath (786.09) 2016 Problem resolved confirmed [facility]98 [id number]- Problem Shoulder pain (99609238) Shoulder pain (719.41) 2013 Problem resolved confirmed [facility][id number] [id number]- Problem Disorder of hematopoietic system (80184311) Abnormal findings on blood examination, NEC (790.99) 2013 Problem resolved confirmed [facility]98 [id number]- Problem Angina (834640146) Angina (413.9) 2010 Problem resolved confirmed [facility]98 [id number]- Problem Disorder of anterior pituitary (55342862) 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) 2011 Problem resolved confirmed [facility]98 [id number]- Problem Disorder of hematopoietic system (17527042) Other abnormal findings on blood examination (790.99) 2015 Problem resolved confirmed [facility]98 [id number]- Problem Disorder of hematopoietic system (65302560) Other abnormal laboratory result on blood (790.99) 2007 Problem resolved confirmed [facility]98 [id number]- Problem Atypical mole syndrome (455416928) Atypical mole (238.2) 2008 Problem resolved confirmed [facility]98 5911- Problem Chest pain (74965176) Chest pain (786.51) 2014 Problem resolved confirmed [facility]98 5911- Problem Depressive disorder (50749314) Depressive disorder not elsewhere classified (311) 2014 Problem resolved confirmed [facility]98 5911- Problem Generalized abdomina l pain (303418375) Generalized abdominal pain (789.07) 2008 Problem resolved confirmed [facility]98 5911- Problem Lab: Used to mat ch unlinked laboratory orders (V92) 2014 Problem resolved confirmed [facility]98 5911- Problem Impaired fasting glycaemia (306897574) Elevated fasting glucose (790.21) 2014 Problem resolved confirmed [facility]98 5911- Problem Hemoglobinopathy (17785817) Elevated hematocrit (282.7) 2014 Problem resolved confirmed [facility]98 5911- Problem Abnormal chest sound s (39667924504901) Egophany (786.7) 2016 Problem resolved confirmed [facility]98 5911- Problem Insomnia (408038582) Insomnia (307.41) 2012 Problem resolved confirmed [facility]98 5911- Problem Pain in limb (92397072) Leg pain (729.5) 2010 Problem resolved confirmed [facility]98 5911- Problem Rib pain (564424317) Rib pain (786.50) 2013 Problem resolved confirmed [facility]98 5911- Problem General examination of patient (929932756) Annual exam (V70.0) 2007 Problem resolved confirmed [facility]98 5911- Problem Staphylococcal infectious disease (38600966) Staph infection (041.19) 2015 Problem resolved confirmed [facility]98 5911- Problem Heart disease (80074356) Asymmetrical cardiac hypertrophy (429.9) 2007 Problem resolved confirmed [facility]98 5911- Problem Obstructive sleep apnea (63316059) Obstructive sleep apnea (780.57) 2014 Problem resolved confirmed [facility]98 5911- Problem Stress (728138713) Stress (300.02) 2008 Problem resolved confirmed [facility]98 5911- Problem Acute upper respiratory infection (50300765) Acute upper respiratory infection of multiple sites (465.8) 2018 Problem resolved confirmed [facility]98 5911- Problem Congestion (90347912) Congestion (477.9) 2007 Problem resolved confirmed [facility]98 5911- Problem Lumbar radiculopathy (592497976) Lumbar radiculopathy (722.10) 2010 Problem resolved confirmed [facility]98 5911- Problem Acquired polycythemi a (58625166) Acquired polycythemia (289.0) 2016 Problem resolved confirmed [facility]98 5911- Problem Acute sinusitis (20132639) Acute sinusitis (461.8) 2007 Problem resolved confirmed [facility]98 5911- Problem Ankle pain (961747259) Ankle pain (719.47) 2013 Problem resolved confirmed [facility]98 5911- Problem Heart murmur (38466271) Cardiac murmur (785.2) 2007 Problem resolved confirmed [facility]98 5911- Problem Erythrocyte sedimentation rate raised (148189084) Elevated sed rate (ESR) (790.1) 2011 Problem resolved confirmed [facility]98 5911- Problem Erectile dysfunction (277903774) Erectile dysfunction (302.72) 2013 Active confirmed [facility]98 5911- Problem Gynecomastia (8696969) Gynecomastia (611.1) 2015 Problem resolved confirmed [facility]98 5911- Problem Thrombosed external hemorrhoids (05954491) Hemorrhoids, external thrombosed (455.4) 2017 Problem resolved confirmed [facility]98 5911- Problem Disorder of lipid metabolism (439794751) Low HDL level (272.9) 2010 Problem resolved confirmed [facility]98 5911- Problem Left ventricular hypertrophy (58450693) LVH (429.3) 2010 Problem resolved confirmed [facility]98 5911- Problem Cellulitis and abscess of lower leg (680016362) Cellulitis of the leg (682.6) 2013 Problem resolved confirmed [facility]98 5911- Problem Change in voice (878236380) Change in voice (784.49) 2013 Problem resolved confirmed [facility]98 5911- Problem Acute upper respiratory infection (80684317) Upper respiratory illness (465.8) 2007 Problem resolved confirmed [facility]98 5911- Problem Kidney stone (44499091) kidney stones (592.0) 2007 Problem resolved confirmed [facility]98 5911- Problem Cramp in lower limb (456322393) Leg cramps (729.82) 2017 Problem resolved confirmed [facility]98 5911- Problem Low back pain (114352731) Lower back pain (724.2) 2010 Problem resolved confirmed [facility]98 5911- Problem Dry mouth (71633852) Dry mouth (527.7) 2014 Problem resolved confirmed [facility]98 5911- Problem Essential hypertension (82445407) Essential hypertension (401.1) 2010 Problem resolved confirmed [facility]-98 5911- Problem Impacted cerumen (62544602) External cerumen impaction (380.4) 2011 Problem resolved confirmed [facility]98 5911- Problem Laceration of foot (824569469) Laceration of foot (892.0) 2011 Problem resolved confirmed [facility]-98 5911- Problem Pedal edema (139907593) Pedal edema (782.3) 2014 Problem resolved confirmed [facility]-98 5911- Problem Synovial cyst (808929607) Synovial cyst, NOS (727.40) 2017 Problem resolved confirmed [facility]-98 5911- Problem Thoracic back pain (011832892) Upper back pain (724.5) 2008 Problem resolved confirmed [facility]-98 5911- Problem Seborrheic keratosis (664864766) Seborrheic keratosis, other (702.19) 2015 Problem resolved confirmed [facility]-98 5911- Problem Macrocytosis (41087332) Macrocytosis (D75.89) Active confirmed Vital Signs Heart Rate 94 /min 11/05/2024 Temperature 97.73 degrees Fahrenheit 11/05/2024 Height-cm 193.04 cm 11/05/2024 Blood pressure diastolic 64 mm Hg 11/05/2024 Weight-kg 130.45 kg 11/05/2024 Height 76.00 in 11/05/2024 Blood pressure systolic 101 mm Hg 11/05/2024 Weight 287.6 lbs 11/05/2024 BMI 35 kg/m2 11/05/2024 Encounters Encounter Location Date Provider Diagnosis [facility] [address] [place] [address] Dr [address] [place] [address] 11/05/2024 Tonya Woodruff Hypertension I10 ; Testicular hypofunction E29.1 ; Nephrolithiasis N20.0 ; Fatigue R53.83 and Low libido R68.82 Migrated_Facility 0 0 07/25/2024 Provider Migration Migrated_Facility 0 0 07/26/2024 Provider Migration [facility] [address] [place] [address] Dr [address] [place] [address] 06/15/2024 Miki Vickie Calculus of kidney N20.0 [facility] [address] [place] [address] 06/19/2024 Miki Johnston Testicular hypofunct ion E29.1 [facility] [address] [place] [address] 07/03/2024 Miki Johnston Testicular hypofunct ion E29.1 [facility] [address] [place] [address] 07/09/2024 Miki Johnston Testicular hypofunct ion E29.1 [facility] [address] [place] [address] 09/25/2024 Miki Shinsay [facility] [address] [place] [address] 09/25/2024 Miki Johnston [facility] [address] [place] [address] 11/05/2024 Miki Johnston Testicular hypofunct ion E29.1 [facility] [address] [place] [address] 11/27[facility] [address] [place] [address] 12/11/2024 Tonya TrentMorales [facility] [address] [place] [address] 05/05/2025 Miki Johnston [facility] [address] [place] [address] 05/05/2025 Miki Shinsay [facility] [address] [place] [address] 05/05/2025 Miki Johnston Assessments Encounter Date Diagnosis [...] lower abdomen and groin. Pain during urination [place], red, or brown urine. Nausea and Vomiting [...] to help pass the stone. Pain Management: Migd-[id number]-[id number] pain relievers like ibuprofen or acetaminophen. Medications: [...] Name Order Date CBC w\ Auto Diff 93638 06/15/2024 CBC w\ Auto Diff 60240 06/19/2024 Comprehensive Metabolic Panel (CMP) 8005 3 06/15/2024 Comprehensive Metabolic Panel (CMP) 8005 3 06/19/2024 Estradiol Level 44683 06/19/2024 Estradiol Level 70447 06/15/2024 Testosterone Total 01400 06/15/2024 Testosterone Total 27520 06/19/2024 Abdomen AP-37512 06/15/2024 Future Test Test Name Order Date CBC w\ Auto Diff 10421 03/30/2025 Comprehensive Metabolic Panel (CMP) 8005 3 03/30/2025 Estradiol Level 92993 03/30/2025 PSA Diagnostic--18917 03/30/2025 Testosterone Total 46434 03/30/2025 Insurance Providers Payer Name Payer Address Payer Phone Subscriber Number Group Number Insured Name Patient Relationship to Insured Coverage Start Date Coverage End Date [place] [employer] [address] [place] [address] [id number] Charan Smith Self - patient is the insured Medical (General) History Medical History History ICD Code Asymmetrical cardiac hypertrophy Hypertension Hypercholesterolemia Sleep apnea Osteoarthritis Testosterone deficiency Erectile dysfunction Depression OTHER MEDICAL PROVIDERS Demi Chef- Dr. Orourke Pain management- Dr. Maldonado Urologist- Dr. Cage Commanding Officer Traffic Division - Dr. Bala Juárez Thyroid tumor, benign 09/2020 Electrocution; 02/2020 Asthma CKD New onset of A-fib Surgical History Surgery Date(Month/Year) Fracture of wrist; 2004 Foot; left 2013 L4-L5 Fusion Hospitalization History Reason Date(Month/Year) New onset Afib 11/07/20 Covid 09/2020
--- OUTSIDE RECORDS SUMMARY | 2025-06-14 16:17 | XMS_ITS | Encounter Summary ---
Author Organization [employer] Address 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 Gender Identity Not on file Sexual [...] - 4.5 mg/dL 12/09/2022 6:34 AM CDT [facility] [employer] [facility] Blood Collection / Unknown 12/09/2022 4:20 AM CDT 12/09/2022 6:15 AM CDT Esther Sarmiento MD CHEMISTRY ORDERABLES Final Resul t Performing Organization Address [facility] Co de Phone Number [facility] CLIA # [id number] [address] [address] * MAGNESIUM LEVEL (12/09/2022 4:20 AM CDT) MAGNESIUM 2.0 1.6 - 2.4 mg/dL 12/09/2022 6:34 AM CDT [facility] [employer] [facility] Blood Collection / Unknown 12/09/2022 4:20 AM CDT 12/09/2022 6:15 AM CDT Esther Sarmiento MD CHEMISTRY ORDERABLES Final Resul t Performing Organization Address [facility] Co de Phone Number [facility] [employer] [facility] CLIA # [id number] [address] [address] * (ABNORMAL) COMPREHENSIVE METABOLIC PANEL (12/09/2022 4:20 AM CDT) SODIUM 136 136 - 145 mmol/L 12/09/2022 6:34 AM CDT [facility] [employer] [facility] POTASSIUM 4.2 3.5 - 5.1 mmol/L 12/09/2022 6:34 AM CDT [facility] [employer] [facility] CHLORIDE 103 98 - 107 mmol/L 12/09/2022 6:34 AM [facility] CO2 27 22 - 29 mmol/L 12/09/2022 6:34 AM CDT [facility] [employer] [facility] CALCIUM 9.8 8.8 - 10.2 mg/dL 12/09/2022 6:34 AM CDT [facility] [employer] [facility] BUN 34(H) 8 - 23 mg/dL 12/09/2022 6:34 AM CDT [facility] CREATININE 0.89 0.67 - 1.17 mg/dL 12/09/2022 6:34 AM T [facility] GLUCOSE 136(H) 74 - 99 mg/dL 12/09/2022 6:34 AM T [facility] TOTAL PROTEIN 7.2 6.4 - 8.3 g/dL 12/09/2022 6:34 AM [facility] ALBUMIN 3.4(L) 3.5 - 5.2 g/dL 12/09/2022 6:34 AM T [facility] BILIRUBIN TOTAL 0.2 0.2 - 1.0 mg/dL 12/09/2022 6:34 AM [facility] ALKALINE PHOSPHATASE 116 40 - 129 U/L 12/09/2022 6:34 AM [facility] AST 16 10 - 50 U/L 12/09/2022 6:34 AM [facility] ALT 17 <=50 U/L 12/09/2022 6:34 AM [facility] GFR >60 >=60 mL/min/1.7 3 sq meter 12/09/2022 6:34 AM [facility] Comment:eGFR calculated with 2020 CKD-EPI equation. Vegetarian diet, extremely high or low muscle mass, and may affect results. Cystatin C with Glomerular Filtration Rate is a suitable alternative for these patients. ANION GAP 6(L) 9 - 20 mmol/L 12/09/2022 6:34 AM [facility] Blood Collection / Unknown 12/09/2022 4:20 AM CDT 12/09/2022 6:15 AM CDT us Esther Sarmiento MD CHEMISTRY ORDERABLES Final Resul t [facility] CLIA # [id number] [address] [address] documented in this encounter Visit Diagnoses Not on filedocumented in this encounter Additional Health Concerns Infection Onset Date Last Indicated Resolved Time C Diff 11/17/2022 11/17/2022 01/16/2023 1:16 AM CDT documented as of this encounter Care Teams Maintenance Carpenter Relationship Specialty Start Date End Date Shant Ballesteros Jr., MD [address] [place] [address] PCP - General Family Practice 01/19/14 documented as of this encounter
--- OUTSIDE RECORDS SUMMARY | 2025-06-14 16:17 | XMS_ITS | Encounter Summary ---
Author Organization [employer] Address 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 Gender Identity Not on file Sexual Orientation [...] CBC WITH DIFFERENTIAL (12/13/2022 4:30 AM CDT) [facility] WBC 6.0 4.8 - 10.8 K/uL 12/13/2022 5:36 AM CDT [facility] RBC 3.36(L) 4.60 - 6.20 M/uL 12/13/2022 5:36 AM [facility] HEMOGLOBIN 10.3(L) 14.0 - 18.0 g/dL 12/13/2022 5:36 AM [facility] HEMATOCRIT 33.7(L) 41.0 - 53.0 % 12/13/2022 5:36 AM [facility] MCV 100.3 84.0 - 103.0 fL 12/13/2022 5:36 AM [facility] MCH 30.7 27.0 - 34.0 pg 12/13/2022 5:36 AM [facility] MCHC 30.6 30.0 - 35.0 g/dL 12/13/2022 5:36 AM [facility] RDW 15.9(H) 11.0 - 14.5 % 12/13/2022 5:36 AM [facility] RDW-STDEV 58.9(H) 37.0 - 54.0 fL 12/13/2022 5:36 AM [facility] PLATELETS 262 140 - 440 K/uL 12/13/2022 5:36 AM [facility] MPV 10.9 8.9 - 12.8 fL 12/13/2022 5:36 AM [facility] NEUTROPHILS 54 42 - 75 % 12/13/2022 5:36 AM [facility] LYMPHOCYTES 23(L) 24 - 44 % 12/13/2022 5:36 AM [facility] MONOCYTES 14(H) 2 - 10 % 12/13/2022 5:36 AM [facility] EOSINOPHILS 8(H) 0 - 7 % 12/13/2022 5:36 AM [facility] BASOPHILS 1 0 - 1 % 12/13/2022 5:36 AM [facility] IMMATURE GRANULOCYTES 1 0 - 2 % 12/13/2022 5:36 AM [facility] NEUTROPHIL ABSOLUTE 3.23 2.00 - 8.00 K/uL 12/13/2022 5:36 AM [facility] LYMPHOCYTE ABSOLUTE 1.39 1.20 - 4.00 K/uL 12/13/2022 5:36 AM CDT [facility] MONOCYTE ABSOLUTE 0.81(H) 0.10 - 0.60 K/uL 12/13/2022 5:36 AM CDT [facility] EOSINOPHIL ABSOLUTE 0.50 0.00 - 0.70 K/uL 12/13/2022 5:36 AM CDT [facility] BASOPHILS ABSOLUTE 0.04 0.00 - 0.20 K/uL 12/13/2022 5:36 AM CDT [facility] IMMATURE GRANULOCYTES ABSOLUTE 0.03 0.00 - 0.10 K/uL 12/13/2022 5:36 AM CDT [facility] Blood Collection / Unknown 12/13/2022 4:30 AM CDT 12/13/2022 5:28 AM CDT us Esther Sarmiento MD HEMATOLOGY ORDERABLES Final Resu lt [facility] CLIA # [id number] [address] [place] [address] * (ABNORMAL) TESTOSTERONE FREE AND TOTAL (12/13/2022 4:30 AM CDT) [facility] TESTOSTERONE 28(L) 250 - 1100 ng/dL 12/16/2022 11:31 AM CDT [facility] Comment: Men with clinically significant hypogonadal symptoms and testosterone values repeatedly in the range of the 200-300 ng/dL or less, may benefit from testosterone treatment after adequate risk and benefits counseling. For additional information, please refer to https://education.[employer]/faq/NIE509 (This link is being provided for informational/educational purposes only.) (Note) This test was developed and its analytical performance characteristics have been determined by [employer]. It has not been cleared or approved by the FDA. This assay has been validated pursuant to the CLIA regulations and is used for clinical purposes. TESTOSTERONE FREE 4.3(L) 35.0 - 155.0 pg/mL 12/16/2022 11:31 AM CDT [facility] Comment: (Note) This test was developed and its analytical performance characteristics have been determined by [employer]. It has not been cleared or approved by the FDA. This assay has been validated pursuant to the CLIA regulations and is used for clinical purposes. [facility] [address] [place] [address],[address] [place] [id number] Manuel Tirado MD Blood Collection / Unknown 12/13/2022 4:30 AM CDT 12/13/2022 7:43 AM CDT Narrative [facility] - 12/16/2022 11:31 AM CDT Performing Organization Information: Site ID: [id number] Name: [facility] Address: [address] [place] [address], [address] [place] [id number] Director: Manuel Tirado MD Esther Sarmiento MD CHEMISTRY ORDERABLES Final Resul t [facility] documented in this encounter Visit Diagnoses Not on filedocumented in this encounter Additional Health Concerns Infection Onset Date Last Indicated Resolved Time C Diff 11/17/2022 11/17/2022 01/16/2023 1:16 AM CDT documented as of this encounter Care Teams Uat Tester Relationship Specialty Start Date End Date Shant Ballesteros Jr., MD [address] [place] [address] PCP - General Family Practice 01/19/14 documented as of this encounter
--- OUTSIDE RECORDS SUMMARY | 2025-06-14 16:17 | XMS_ITS | Encounter Summary ---
Author Organization [employer] Address [address] [place] [address] Care Team Providers Care Analytical Statistician Name Role Phone Favian Maldonado MD, Shant Humphreys Primary Care Provider Encounter Details Date Type Department Care Team (Late st Contact Info) Description 11/23/2022 Lab Requisition [facility] Laboratory Services [address] [place] [address] Low Amaya, DO [address] [place] [phone] Social History Tobacco Use Types Packs/Day Years Used Date Smoking Tobacco: Never Assessed Sex and Gender Information Value Date Recorded Sex Assigned at Not on file Legal Sex Male 9:45 AM SUPERVISOR LOADING Gender Identity Not on file Sexual Orientation Not on file documented as of this encounter Plan of Treatment Not on file documented as of this encounter Procedures Procedure Name Priority Date/Time Associated Diagnosis Comments PHOSPHORUS Routine 11/23/2022 4:30 AM SUPERVISOR LOADING MAGNESIUM LEVEL Routine 11/23/2022 4:30 AM SUPERVISOR LOADING BASIC METABOLIC PANEL Routine 11/23/2022 4:30 AM SUPERVISOR LOADING documented in this encounter Results * PHOSPHORUS (11/23/2022 4:30 AM SUPERVISOR LOADING) PHOSPHORUS 4.1 2.5 - 4.5 mg/dL 11/23/2022 6:08 AM SUPERVISOR LOADING [facility] Blood Collection / Unknown 11/23/2022 4:30 AM SUPERVISOR LOADING 11/23/2022 5:49 AM SUPERVISOR LOADING Low Amaya DO CHEMISTRY ORDERABLES Final R [facility] Performing Organization Address [facility]/ZIP Co de Phone Number [facility] CLIA # [id number] [address] [facility] [place] [address] * MAGNESIUM LEVEL (11/23/2022 4:30 AM SUPERVISOR LOADING) MAGNESIUM 1.9 1.6 - 2.4 mg/dL 11/23/2022 6:08 AM [facility] Blood Collection / Unknown 11/23/2022 4:30 AM SUPERVISOR LOADING 11/23/2022 5:49 AM SUPERVISOR LOADING Low Amaya DO CHEMISTRY ORDERABLES Final R esult Performing Organization Address [facility] Co de Phone Number [facility] CLIA # [id number] [address] [address] * (ABNORMAL) BASIC METABOLIC PANEL (11/23/2022 4:30 AM SUPERVISOR LOADING) SODIUM 142 136 - 145 mmol/L 11/23/2022 6:08 AM [facility] POTASSIUM 4.3 3.5 - 5.1 mmol/L 11/23/2022 6:08 AM [facility] Comment:Slightly hemolyzed. Result may be falsely elevated. CHLORIDE 104 98 - 107 mmol/L 11/23/2022 6:08 AM [facility] CO2 30(H) 22 - 29 mmol/L 11/23/2022 6:08 AM [facility] CALCIUM 9.5 8.8 - 10.2 mg/dL 11/23/2022 6:08 AM [facility] BUN 25(H) 8 - 23 mg/dL 11/23/2022 6:08 AM [facility] CREATININE 0.92 0.67 - 1.17 mg/dL 11/23/2022 6:08 AM [facility] GLUCOSE 135(H) 74 - 99 mg/dL 11/23/2022 6:08 AM [facility] GFR >60 >=60 mL/min/1.7 3 sq meter 11/23/2022 6:08 AM [facility] Comment:eGFR calculated with 2020 CKD-EPI equation. Vegetarian diet, extremely high or low muscle mass, and may affect results. Cystatin C with Glomerular Filtration Rate is a suitable alternative for these patients. ANION GAP 8(L) 9 - 20 mmol/L 11/23/2022 6:08 AM [facility] Blood Collection / Unknown 11/23/2022 4:30 AM SUPERVISOR LOADING 11/23/2022 5:49 AM SUPERVISOR LOADING Low Amaya DO CHEMISTRY ORDERABLES Final R esult [facility] CLIA # [id number] [address] [place] [address] documented in this encounter Visit Diagnoses Not on filedocumented in this encounter Additional Health Concerns Infection Onset Date Last Indicated Resolved Time C Diff 11/17/2022 11/17/2022 01/16/2023 1:16 AM CDT documented as of this encounter Care Teams Analytical Statistician Relationship Specialty Start Date End Date Shant Ballesteros Jr., MD [address] [place] [address] PCP - General Family Practice 01/19/14 documented as of this encounter
--- OUTSIDE RECORDS SUMMARY | 2025-06-14 16:17 | XMS_ITS | Encounter Summary ---
Author Organization [employer] Address 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 Gender Identity Not on file Sexual [...] PM CDT Performing Organization Information: Site ID: [id number] Name: [employer] Address: [address] [place] [address] Director: Andrew Alvarado MD Low Amaya CHEMISTRY ORDERABLES Final R esult Performing Organization Address City/[facility]/ZIP Co de Phone Number [facility] * MAGNESIUM LEVEL (12/10/2022 2:00 AM CDT) [facility] MAGNESIUM 2.0 1.6 - 2.4 mg/dL 12/10/2022 7:38 AM CDT [facility] Blood Collection / Unknown 12/10/2022 2:00 AM CDT 12/10/2022 7:02 AM CDT Low Amaya CHEMISTRY ORDERABLES Final R esult Performing Organization Address City/[facility]/ZIP Co de Phone Number [facility] CLIA # [id number] [address] [place] [address] [place] [address] * (ABNORMAL) TRIGLYCERIDE (12/10/2022 2:00 AM CDT) [facility] TRIGLYCERIDE 202(H) <150 mg/dL 12/10/2022 7:38 AM CDT [facility] Blood Collection / Unknown 12/10/2022 2:00 AM CDT 12/10/2022 7:02 AM CDT Narrative [facility] - 12/10/2022 7:38 AM CDT TRIGLYCERIDES mg/dL Normal < 150 Borderline High 150 - 199 High 200 - 499 Very High >= 500 Based on AHA/NCEP Guidelines. Low Amaya DO CHEMISTRY ORDERABLES Final R esult Performing Organization Address City/[facility]/ZIP Co de Phone Number [facility] CLIA # [id number] [address] [address] * PHOSPHORUS (12/10/2022 2:00 AM CDT) [facility] PHOSPHORUS 3.5 2.5 - 4.5 mg/dL 12/10/2022 7:38 AM CDT [facility] Blood Collection / Unknown 12/10/2022 2:00 AM CDT 12/10/2022 7:02 AM CDT Low Amaya DO CHEMISTRY ORDERABLES Final [facility] Performing Organization Address [facility] Co de Phone Number [facility] CLIA # [id number] [address] [address] * (ABNORMAL) CBC WITH DIFFERENTIAL (12/10/2022 2:00 AM CDT) [facility] WBC 7.0 4.8 - 10.8 K/uL 12/10/2022 7:10 AM CDT [facility] RBC 3.23(L) 4.60 - 6.20 M/uL 12/10/2022 7:10 AM CDT [facility] HEMOGLOBIN 9.7(L) 14.0 - 18.0 g/dL 12/10/2022 7:10 AM CDT [facility] HEMATOCRIT 31.3(L) 41.0 - 53.0 % 12/10/2022 7:10 AM [facility] MCV 96.9 84.0 - 103.0 fL 12/10/2022 7:10 AM [facility] MCH 30.0 27.0 - 34.0 pg 12/10/2022 7:10 AM [facility] MCHC 31.0 30.0 - 35.0 g/dL 12/10/2022 7:10 AM [facility] RDW 16.3(H) 11.0 - 14.5 % 12/10/2022 7:10 AM [facility] RDW-STDEV 58.5(H) 37.0 - 54.0 fL 12/10/2022 7:10 AM [facility] PLATELETS 236 140 - 440 K/uL 12/10/2022 7:10 AM [facility] MPV 11.2 8.9 - 12.8 fL 12/10/2022 7:10 AM [facility] NEUTROPHILS 56 42 - 75 % 12/10/2022 7:10 AM [facility] LYMPHOCYTES 20(L) 24 - 44 % 12/10/2022 7:10 AM [facility] MONOCYTES 14(H) 2 - 10 % 12/10/2022 7:10 AM [facility] EOSINOPHILS 7 0 - 7 % 12/10/2022 7:10 AM [facility] BASOPHILS 1 0 - 1 % 12/10/2022 7:10 AM [facility] IMMATURE GRANULOCYTES 1 0 - 2 % 12/10/2022 7:10 AM [facility] NEUTROPHIL ABSOLUTE 3.94 2.00 - 8.00 K/uL 12/10/2022 7:10 AM [facility] LYMPHOCYTE ABSOLUTE 1.42 1.20 - 4.00 K/uL 12/10/2022 7:10 AM [facility] MONOCYTE ABSOLUTE 1.01(H) 0.10 - 0.60 K/uL 12/10/2022 7:10 AM [facility] EOSINOPHIL ABSOLUTE 0.52 0.00 - 0.70 K/uL 12/10/2022 7:10 AM CDT [facility] BASOPHILS ABSOLUTE 0.06 0.00 - 0.20 K/uL 12/10/2022 7:10 AM CDT [facility] IMMATURE GRANULOCYTES ABSOLUTE 0.04 0.00 - 0.10 K/uL 12/10/2022 7:10 AM T [facility] Blood Collection / Unknown 12/10/2022 2:00 AM CDT 12/10/2022 7:02 AM CDT us Low Amaya DO HEMATOLOGY ORDERABLES Final Result [facility] CLIA # [id number] [address] [place] [address] * (ABNORMAL) COMPREHENSIVE METABOLIC PANEL (12/10/2022 2:00 AM CDT) SODIUM 136 136 - 145 mmol/L 12/10/2022 7:38 AM [facility] POTASSIUM 4.4 3.5 - 5.1 mmol/L 12/10/2022 7:38 AM [facility] CHLORIDE 102 98 - 107 mmol/L 12/10/2022 7:38 AM [facility] CO2 26 22 - 29 mmol/L 12/10/2022 7:38 AM [facility] CALCIUM 10.0 8.8 - 10.2 mg/dL 12/10/2022 7:38 AM [facility] BUN 35(H) 8 - 23 mg/dL 12/10/2022 7:38 AM [facility] CREATININE 0.94 0.67 - 1.17 mg/dL 12/10/2022 7:38 AM T [facility] GLUCOSE 117(H) 74 - 99 mg/dL 12/10/2022 7:38 AM [facility] TOTAL PROTEIN 7.0 6.4 - 8.3 g/dL 12/10/2022 7:38 AM T [facility] ALBUMIN 3.3(L) 3.5 - 5.2 g/dL 12/10/2022 7:38 AM T [facility] BILIRUBIN TOTAL 0.2 0.2 - 1.0 mg/dL 12/10/2022 7:38 AM T [facility] ALKALINE PHOSPHATASE 113 40 - 129 U/L 12/10/2022 7:38 AM T [facility] AST 17 10 - 50 U/L 12/10/2022 7:38 AM T [facility] ALT 16 <=50 U/L 12/10/2022 7:38 AM T [facility] GFR >60 >=60 mL/min/1.7 3 sq meter 12/10/2022 7:38 AM [facility] Comment:eGFR calculated with 2020 CKD-EPI equation. Vegetarian diet, extremely high or low muscle mass, and may affect results. Cystatin C with Glomerular Filtration Rate is a suitable alternative for these patients. ANION GAP 8(L) 9 - 20 mmol/L 12/10/2022 7:38 AM T [facility] Blood Collection / Unknown 12/10/2022 2:00 AM CDT 12/10/2022 7:02 AM CDT Low Amaya DO CHEMISTRY ORDERABLES Final R esult [facility] CLIA # [id number] [address] [id number] documented in this encounter Visit Diagnoses Not on filedocumented in this encounter Additional Health Concerns Infection Onset Date Last Indicated Resolved Time C Diff 11/17/2022 11/17/2022 01/16/2023 1:16 AM CDT documented as of this encounter Care Teams Cloth Beamer Relationship Specialty Start Date End Date Shant Ballesteros Jr., MD [address] [place] [address] PCP - General Family Practice 01/19/14 documented as of this encounter
--- OUTSIDE RECORDS SUMMARY | 2025-06-14 16:17 | XMS_ITS | Encounter Summary ---
Author Organization [facility] Address 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 Gender Identity Not on file Sexual [...] - 145 mmol/L 12/20/2022 6:20 AM CDT [facility] POTASSIUM 5.4(H) 3.5 - 5.1 mmol/L 12/20/2022 6:20 AM CDT [facility] CHLORIDE 97(L) 98 - 107 mmol/L 12/20/2022 6:20 AM CDT [facility] CO2 26 22 - 29 mmol/L 12/20/2022 6:20 AM T [facility] CALCIUM 10.2 8.8 - 10.2 mg/dL 12/20/2022 6:20 AM T [facility] BUN 42(H) 8 - 23 mg/dL 12/20/2022 6:20 AM T [facility] CREATININE 1.10 0.67 - 1.17 mg/dL 12/20/2022 6:20 AM T [facility] GLUCOSE 120(H) 74 - 99 mg/dL 12/20/2022 6:20 AM T [facility] TOTAL PROTEIN 7.4 6.4 - 8.3 g/dL 12/20/2022 6:20 AM T [facility] ALBUMIN 3.6 3.5 - 5.2 g/dL 12/20/2022 6:20 AM T [facility] BILIRUBIN TOTAL 0.2 0.2 - 1.0 mg/dL 12/20/2022 6:20 AM T [facility] ALKALINE PHOSPHATASE 103 40 - 129 U/L 12/20/2022 6:20 AM CDT [facility] AST 27 10 - 50 U/L 12/20/2022 6:20 AM T [facility] ALT 34 <=50 U/L 12/20/2022 6:20 AM T [facility] GFR >60 >=60 mL/min/1.7 3 sq meter 12/20/2022 6:20 AM T [facility] Comment:eGFR calculated with 2020 CKD-EPI equation. Vegetarian diet, extremely high or low muscle mass, and may affect results. Cystatin C with Glomerular Filtration Rate is a suitable alternative for these patients. ANION GAP 11 9 - 20 mmol/L 12/20/2022 6:20 AM T [facility] Blood Collection / Unknown 12/20/2022 1:20 AM CDT 12/20/2022 6:05 AM CDT us Deborah Aguilar MD CHEMISTRY ORDERABLES Final Resu lt [facility] CLIA # [id number] [address] [place] [address] * (ABNORMAL) CBC WITH DIFFERENTIAL (12/20/2022 1:20 AM CDT) WBC 7.9 4.8 - 10.8 K/uL 12/20/2022 6:09 AM [facility] RBC 3.74(L) 4.60 - 6.20 M/uL 12/20/2022 6:09 AM [facility] HEMOGLOBIN 11.4(L) 14.0 - 18.0 g/dL 12/20/2022 6:09 AM [facility] HEMATOCRIT 35.9(L) 41.0 - 53.0 % 12/20/2022 6:09 AM [facility] MCV 96.0 84.0 - 103.0 fL 12/20/2022 6:09 AM [facility] MCH 30.5 27.0 - 34.0 pg 12/20/2022 6:09 AM [facility] MCHC 31.8 30.0 - 35.0 g/dL 12/20/2022 6:09 AM [facility] RDW 15.5(H) 11.0 - 14.5 % 12/20/2022 6:09 AM [facility] RDW-STDEV 55.0(H) 37.0 - 54.0 fL 12/20/2022 6:09 AM [facility] PLATELETS 279 140 - 440 K/uL 12/20/2022 6:09 AM [facility] MPV 10.5 8.9 - 12.8 fL 12/20/2022 6:09 AM [facility] NEUTROPHILS 54 42 - 75 % 12/20/2022 6:09 AM [facility] LYMPHOCYTES 22(L) 24 - 44 % 12/20/2022 6:09 AM [facility] MONOCYTES 13(H) 2 - 10 % 12/20/2022 6:09 AM [facility] EOSINOPHILS 10(H) 0 - 7 % 12/20/2022 6:09 AM [facility] BASOPHILS 1 0 - 1 % 12/20/2022 6:09 AM [facility] IMMATURE GRANULOCYTES 1 0 - 2 % 12/20/2022 6:09 AM [facility] NEUTROPHIL ABSOLUTE 4.27 2.00 - 8.00 K/uL 12/20/2022 6:09 AM [facility] LYMPHOCYTE ABSOLUTE 1.72 1.20 - 4.00 K/uL 12/20/2022 6:09 AM [facility] MONOCYTE ABSOLUTE 0.99(H) 0.10 - 0.60 K/uL 12/20/2022 6:09 AM [facility] EOSINOPHIL ABSOLUTE 0.76(H) 0.00 - 0.70 K/uL 12/20/2022 6:09 AM [facility] BASOPHILS ABSOLUTE 0.06 0.00 - 0.20 K/uL 12/20/2022 6:09 AM [facility] IMMATURE GRANULOCYTES ABSOLUTE 0.05 0.00 - 0.10 K/uL 12/20/2022 6:09 AM CDT [facility] Blood Collection / Unknown 12/20/2022 1:20 AM CDT 12/20/2022 6:05 AM CDT us Deborah Aguilar MD HEMATOLOGY ORDERABLES Final Res ult [facility] CLIA # [id number] [facility] [address] documented in this encounter Visit Diagnoses Not on filedocumented in this encounter Additional Health Concerns Infection Onset Date Last Indicated Resolved Time C Diff 11/17/2022 11/17/2022 01/16/2023 1:16 AM CDT documented as of this encounter Care Teams Host Hostess Relationship Specialty Start Date End Date Shant Ballesteros Jr., MD [address] [place] [address] PCP - General Family Practice 01/19/14 documented as of this encounter
--- OUTSIDE RECORDS SUMMARY | 2025-06-14 16:17 | XMS_ITS | Encounter Summary ---
Author Organization [facility] Address 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 Gender Identity Not on file Sexual Orientation Not on file documented as of this encounter Plan of Treatment Not on file documented as of this encounter Procedures Procedure Name Priority Date/Time Associated Diagnosis Comments CBC WITH DIFFERENTIAL Routine 12/06/2022 4:50 PM SENIOR UNIX ADMINISTRATOR documented in this encounter Results * (ABNORMAL) CBC WITH DIFFERENTIAL (12/06/2022 4:50 PM SENIOR UNIX ADMINISTRATOR) WBC 7.0 4.8 - 10.8 K/uL 12/06/2022 6:27 PM SENIOR UNIX ADMINISTRATOR [facility] RBC 3.23(L) 4.60 - 6.20 M/uL 12/06/2022 6:27 PM SENIOR UNIX ADMINISTRATOR [facility] HEMOGLOBIN 9.6(L) 14.0 - 18.0 g/dL 12/06/2022 6:27 PM [facility] HEMATOCRIT 31.3(L) 41.0 - 53.0 % 12/06/2022 6:27 PM [facility] MCV 96.9 84.0 - 103.0 fL 12/06/2022 6:27 PM [facility] MCH 29.7 27.0 - 34.0 pg 12/06/2022 6:27 PM [facility] MCHC 30.7 30.0 - 35.0 g/dL 12/06/2022 6:27 PM [facility] RDW 16.9(H) 11.0 - 14.5 % 12/06/2022 6:27 PM [facility] RDW-STDEV 60.0(H) 37.0 - 54.0 fL 12/06/2022 6:27 PM [facility] PLATELETS 247 140 - 440 K/uL 12/06/2022 6:27 PM [facility] MPV 10.5 8.9 - 12.8 fL 12/06/2022 6:27 PM [facility] NEUTROPHILS 57 42 - 75 % 12/06/2022 6:27 PM [facility] LYMPHOCYTES 20(L) 24 - 44 % 12/06/2022 6:27 PM [facility] MONOCYTES 11(H) 2 - 10 % 12/06/2022 6:27 PM [facility] EOSINOPHILS 11(H) 0 - 7 % 12/06/2022 6:27 PM [facility] BASOPHILS 1 0 - 1 % 12/06/2022 6:27 PM [facility] IMMATURE GRANULOCYTES 0 0 - 2 % 12/06/2022 6:27 PM [facility] NEUTROPHIL ABSOLUTE 3.99 2.00 - 8.00 K/uL 12/06/2022 6:27 PM [facility] LYMPHOCYTE ABSOLUTE 1.43 1.20 - 4.00 K/uL 12/06/2022 6:27 PM [facility] MONOCYTE ABSOLUTE 0.77(H) 0.10 - 0.60 K/uL 12/06/2022 6:27 PM SENIOR UNIX ADMINISTRATOR [facility] EOSINOPHIL ABSOLUTE 0.76(H) 0.00 - 0.70 K/uL 12/06/2022 6:27 PM SENIOR UNIX ADMINISTRATOR [facility] BASOPHILS ABSOLUTE 0.04 0.00 - 0.20 K/uL 12/06/2022 6:27 PM SENIOR UNIX ADMINISTRATOR [facility] IMMATURE GRANULOCYTES ABSOLUTE 0.02 0.00 - 0.10 K/uL 12/06/2022 6:27 PM SENIOR UNIX ADMINISTRATOR [facility] Blood Collection / Unknown 12/06/2022 4:50 PM SENIOR UNIX ADMINISTRATOR 12/06/2022 6:16 PM SENIOR UNIX ADMINISTRATOR us Deborah Aguilar MD HEMATOLOGY ORDERABLES Final Res ult [facility] CLIA # [id number] [facility] [address] documented in this encounter Visit Diagnoses Not on filedocumented in this encounter Additional Health Concerns Infection Onset Date Last Indicated Resolved Time C Diff 11/17/2022 11/17/2022 01/16/2023 1:16 AM CDT documented as of this encounter Care Teams Drapery Sewer Hand Relationship Specialty Start Date End Date Shant Ballesteros Jr., MD [address] [place] [address] PCP - General Family Practice 01/19/14 documented as of this encounter
--- OUTSIDE RECORDS SUMMARY | 2025-06-14 16:17 | XMS_ITS | Encounter Summary ---
Author Organization [employer] [facility] Address [address] [place] [address] Care Team Providers Care Nitroglycerin Distributor Name Role Phone Favian Maldonado MD, Shant Humphreys Primary Care Provider Encounter Details Date Type Department Care Team (Late st Contact Info) Description 11/22/2022 Lab Requisition [facility] Laboratory Services [address] [place] [address] Low Amaya, DO [address] [place] [address] Social History Tobacco Use Types Packs/Day Years Used Date Smoking Tobacco: Never Assessed Sex and Gender Information Value Date Recorded Sex Assigned at Not on file Legal Sex Male 9:45 AM SUPPORTABILITY ENGINEER Gender Identity Not on file Sexual Orientation Not on file documented as of this encounter Plan of Treatment Not on file documented as of this encounter Procedures Procedure Name Priority Date/Time Associated Diagnosis Comments CBC WITH DIFFERENTIAL Routine 11/22/2022 4:14 AM SUPPORTABILITY ENGINEER documented in this encounter Results * (ABNORMAL) CBC WITH DIFFERENTIAL (11/22/2022 4:14 AM SUPPORTABILITY ENGINEER) WBC 6.6 4.8 - 10.8 K/uL 11/22/2022 7:49 AM SUPPORTABILITY ENGINEER [facility] RBC 2.65(L) 4.60 - 6.20 M/uL 11/22/2022 7:49 AM SUPPORTABILITY ENGINEER [facility] HEMOGLOBIN 7.9(L) 14.0 - 18.0 g/dL 11/22/2022 7:49 AM [facility] HEMATOCRIT 26.8(L) 41.0 - 53.0 % 11/22/2022 7:49 AM [facility] MCV 101.1 84.0 - 103.0 fL 11/22/2022 7:49 AM [facility] MCH 29.8 27.0 - 34.0 pg 11/22/2022 7:49 AM [facility] MCHC 29.5(L) 30.0 - 35.0 g/dL 11/22/2022 7:49 AM [facility] RDW 18.6(H) 11.0 - 14.5 % 11/22/2022 7:49 AM [facility] RDW-STDEV 66.0(H) 37.0 - 54.0 fL 11/22/2022 7:49 AM [facility] PLATELETS 298 140 - 440 K/uL 11/22/2022 7:49 AM [facility] MPV 9.8 8.9 - 12.8 fL 11/22/2022 7:49 AM [facility] NEUTROPHILS 67 42 - 75 % 11/22/2022 7:49 AM [facility] LYMPHOCYTES 14(L) 24 - 44 % 11/22/2022 7:49 AM [facility] MONOCYTES 11(H) 2 - 10 % 11/22/2022 7:49 AM [facility] [employer] [facility] EOSINOPHILS 6 0 - 7 % 11/22/2022 7:49 AM [facility] [employer] [facility] BASOPHILS 1 0 - 1 % 11/22/2022 7:49 AM [facility] IMMATURE GRANULOCYTES 1 0 - 2 % 11/22/2022 7:49 AM [facility] NEUTROPHIL ABSOLUTE 4.40 2.00 - 8.00 K/uL 11/22/2022 7:49 AM [facility] LYMPHOCYTE ABSOLUTE 0.92(L) 1.20 - 4.00 K/uL 11/22/2022 7:49 AM [facility] MONOCYTE ABSOLUTE 0.74(H) 0.10 - 0.60 K/uL 11/22/2022 7:49 AM SUPPORTABILITY ENGINEER [facility] EOSINOPHIL ABSOLUTE 0.40 0.00 - 0.70 K/uL 11/22/2022 7:49 AM SUPPORTABILITY ENGINEER [facility] BASOPHILS ABSOLUTE 0.03 0.00 - 0.20 K/uL 11/22/2022 7:49 AM SUPPORTABILITY ENGINEER [facility] IMMATURE GRANULOCYTES ABSOLUTE 0.07 0.00 - 0.10 K/uL 11/22/2022 7:49 AM SUPPORTABILITY ENGINEER [facility] Blood Collection / Unknown 11/22/2022 4:14 AM SUPPORTABILITY ENGINEER 11/22/2022 7:43 AM SUPPORTABILITY ENGINEER Low Amaya DO HEMATOLOGY ORDERABLES Final Result Performing Organization Address City/State/[facility] Co de Phone Number [facility] CLIA # [id number] [facility] [address] documented in this encounter Visit Diagnoses Not on filedocumented in this encounter Additional Health Concerns Infection Onset Date Last Indicated Resolved Time C Diff 11/17/2022 11/17/2022 01/16/2023 1:1 6 AM CDT documented as of this encounter Care Teams Nitroglycerin Distributor Relationship Specialty Start Date End Date Shant Ballesteros Jr., MD [address] [place] [address] PCP - General Family Practice 01/19/14 documented as of this encounter
--- OUTSIDE RECORDS SUMMARY | 2025-06-14 16:17 | XMS_ITS | Encounter Summary ---
Author Organization [employer] Address [address] [place] [address] Care Team Providers Care Experimental Preflight Mechanic Name Role Phone Favian Maldonado MD, Shant Humphreys Primary Care Provider Encounter Details Date Type Department Care Team (Late st Contact Info) Description 12/07/2022 Lab Requisition [facility] Laboratory Services [address] [place] [address] Low Amaya, DO [address] [place] [phone] Social History Tobacco Use Types Packs/Day Years Used Date Smoking Tobacco: Never Assessed Sex and Gender Information Value Date Recorded Sex Assigned at Not on file Legal Sex Male 9:45 AM TOOL DISPATCHER Gender Identity Not on file Sexual Orientation Not on file documented as of this encounter Plan of Treatment Not on file documented as of this encounter Procedures Procedure Name Priority Date/Time Associated Diagnosis Comments PHOSPHORUS Routine 12/07/2022 3:30 AM TOOL DISPATCHER MAGNESIUM LEVEL Routine 12/07/2022 3:30 AM TOOL DISPATCHER BASIC METABOLIC PANEL Routine 12/07/2022 3:30 AM TOOL DISPATCHER documented in this encounter Results * (ABNORMAL) PHOSPHORUS (12/07/2022 3:30 AM TOOL DISPATCHER) PHOSPHORUS 4.7(H) 2.5 - 4.5 mg/dL 12/07/2022 5:41 AM TOOL DISPATCHER [facility] Blood Collection / Unknown 12/07/2022 3:30 AM TOOL DISPATCHER 12/07/2022 5:10 AM TOOL DISPATCHER Low Monique DO CHEMISTRY ORDERABLES Final R esult Performing Organization Address City/[facility]/ZIP Co de Phone Number [facility] CLIA # [id number] [id number] [place] [address] * MAGNESIUM LEVEL (12/07/2022 3:30 AM TOOL DISPATCHER) MAGNESIUM 1.9 1.6 - 2.4 mg/dL 12/07/2022 5:41 AM [facility] Blood Collection / Unknown 12/07/2022 3:30 AM TOOL DISPATCHER 12/07/2022 5:10 AM TOOL DISPATCHER Low Amaya DO CHEMISTRY ORDERABLES Final R esult Performing Organization Address City/[facility]/ZIP Co de Phone Number [facility] CLIA # [id number] [phone] [place] [address] * (ABNORMAL) BASIC METABOLIC PANEL (12/07/2022 3:30 AM TOOL DISPATCHER) SODIUM 137 136 - 145 mmol/L 12/07/2022 5:41 AM [facility] [employer] [facility] POTASSIUM 4.2 3.5 - 5.1 mmol/L 12/07/2022 5:41 AM [facility] [employer] [facility] CHLORIDE 103 98 - 107 mmol/L 12/07/2022 5:41 AM [facility] [employer] [facility] CO2 26 22 - 29 mmol/L 12/07/2022 5:41 AM [facility] CALCIUM 9.5 8.8 - 10.2 mg/dL 12/07/2022 5:41 AM [facility] [employer] [facility] BUN 36(H) 8 - 23 mg/dL 12/07/2022 5:41 AM [facility] CREATININE 0.95 0.67 - 1.17 mg/dL 12/07/2022 5:41 AM [facility] GLUCOSE 102(H) 74 - 99 mg/dL 12/07/2022 5:41 AM [facility] GFR >60 >=60 mL/min/1.7 3 sq meter 12/07/2022 5:41 AM [facility] Comment:eGFR calculated with 2020 CKD-EPI equation. Vegetarian diet, extremely high or low muscle mass, and may affect results. Cystatin C with Glomerular Filtration Rate is a suitable alternative for these patients. ANION GAP 8(L) 9 - 20 mmol/L 12/07/2022 5:41 AM [facility] Blood Collection / Unknown 12/07/2022 3:30 AM TOOL DISPATCHER 12/07/2022 5:10 AM TOOL DISPATCHER Low Amaya DO CHEMISTRY ORDERABLES Final R esult [facility] CLIA # [id number] [address] [place] [address] documented in this encounter Visit Diagnoses Not on filedocumented in this encounter Additional Health Concerns Infection Onset Date Last Indicated Resolved Time C Diff 11/17/2022 11/17/2022 01/16/2023 1:16 AM CDT documented as of this encounter Care Teams Experimental Preflight Mechanic Relationship Specialty Start Date End Date Shant Ballesteros Jr., MD [address] [place] [address] PCP - General Family Practice 01/19/14 documented as of this encounter
--- OUTSIDE RECORDS SUMMARY | 2025-06-14 16:17 | XMS_ITS | Encounter Summary ---
Author Organization [facility] Address [address] [place] [address] Care Team Providers Care Culinary Arts Teacher Name Role Phone Favian Maldonado MD, Shant Humphreys Primary Care Provider Reason for Referral * Outpatient Services (Routine) - Closed Specialty Diagnoses / Procedures Referred By Delfin jerome Referred To Contact Diagnoses Other nonspecific findings on examination of blood(790.99) Procedures MRI BRAIN W WO CONTRAST Shant Ballesteros Jr., MD [address] [place] [address] Phone: tel: [facility] CALL TO MAKE APPOINTMENT ONLY [address] [place] [address] Phone: tel: fax: Referral ID Status Reason Start Date Expiration Date V isits Requested Visits Authorized [id number] Closed F [facility] TO SCHEDULE ([facility]) 01/18/2014 02/18/2015 1 1 * Outpatient Services (Routine) - Closed Specialty Diagnoses / Procedures Referred By Delfin t Referred To Contact Diagnoses Other nonspecific findings on examination of blood(790.99) Procedures MRA VENOUS HEAD WO CONTRAST Shant Ballesteros Jr., MD [address] [place] [address] Phone: tel: fax: [employer] Pre-Registration [facility] CALL TO MAKE APPOINTMENT ONLY [address] [place] [address] Phone: tel: fax: Referral ID Status Reason Start Date Expiration Date V isits Requested Visits Authorized [id number] Closed F [facility] TO SCHEDULE ([facility]) 01/18/2014 02/18/2015 1 1 Encounter Details Date Type Department Care Team (Late st Contact Info) Description 01/18/2014 Ancillary Orders [facility] Pre-Registration [facility]er CALL TO MAKE APPOINTMENT ONLY [address] [place] [address] Shant Ballesteros Jr., MD [address] [place] [address] Other nonspecific findings on examination [...] No significant abnormality. Tripp - uploaded from [employer]- Narrative Procedure Note Philippe Mendiola MD - [...] No significant abnormality. Tripp - uploaded from [email or web address]- us Shant Ballesteros Jr., MD MR ORDERABLES [...] Impression: Unremarkable exam. CHRIS/[email or web address] - uploaded from [email or web address] - Narrative Procedure Note Philippe Mendiola MD [...] jugular veins are patent. Impression: Unremarkable exam. MWKelber/[email or web address] - uploaded from [employer] - us Shant Ballesteros Jr., MD MR [...] blood documented in this encounter Care Teams Culinary Arts Teacher Relationship Specialty Start Date End Date Shant Ballesteros Jr., MD [address] [place] [address] PCP - General Family Practice 01/19/14 documented as of this encounter
--- OUTSIDE RECORDS SUMMARY | 2025-06-14 16:17 | XMS_ITS | Encounter Summary ---
Author Organization [employer] Address 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 Gender Identity Not on file Sexual [...] - 4.5 mg/dL 12/12/2022 5:57 AM CDT [facility] Blood Collection / Unknown 12/12/2022 3:15 AM CDT 12/12/2022 5:23 AM CDT Low L Dierks DO CHEMISTRY ORDERABLES Final R esult Performing Organization Address [facility] de Phone Number [facility] CLIA # [id number] [address] [place] [address] * MAGNESIUM LEVEL (12/12/2022 3:15 AM CDT) MAGNESIUM 1.9 1.6 - 2.4 mg/dL 12/12/2022 5:57 AM CDT [facility] Blood Collection / Unknown 12/12/2022 3:15 AM CDT 12/12/2022 5:23 AM CDT Low Amaya CHEMISTRY ORDERABLES Final R esult Performing Organization Address [facility] de Phone Number [facility] CLIA # [id number] [address] [place] [address] * (ABNORMAL) BASIC METABOLIC PANEL (12/12/2022 3:15 AM CDT) SODIUM 135(L) 136 - 145 mmol/L 12/12/2022 5:57 AM CDT [facility] POTASSIUM 4.7 3.5 - 5.1 mmol/L 12/12/2022 5:57 AM CDT [facility] CHLORIDE 101 98 - 107 mmol/L 12/12/2022 5:57 AM CDT [facility] CO2 24 22 - 29 mmol/L 12/12/2022 5:57 AM CDT [facility] CALCIUM 10.0 8.8 - 10.2 mg/dL 12/12/2022 5:57 AM CDT [facility] BUN 42(H) 8 - 23 mg/dL 12/12/2022 5:57 AM CDT [facility] CREATININE 1.00 0.67 - 1.17 mg/dL 12/12/2022 5:57 AM CDT [facility] GLUCOSE 133(H) 74 - 99 mg/dL 12/12/2022 5:57 AM CDT [facility] GFR >60 >=60 mL/min/1.7 3 sq meter 12/12/2022 5:57 AM CDT [facility] Comment:eGFR calculated with 2020 CKD-EPI equation. Vegetarian diet, extremely high or low muscle mass, and may affect results. Cystatin C with Glomerular Filtration Rate is a suitable alternative for these patients. ANION GAP 10 9 - 20 mmol/L 12/12/2022 5:57 AM CDT [facility] Blood Collection / Unknown 12/12/2022 3:15 AM CDT 12/12/2022 5:23 AM CDT Low Amaya DO CHEMISTRY ORDERABLES Final R esult [facility] CLIA # [id number] [facility] [address] documented in this encounter Visit Diagnoses Not on filedocumented in this encounter Additional Health Concerns Infection Onset Date Last Indicated Resolved Time C Diff 11/17/2022 11/17/2022 01/16/2023 1:16 AM CDT documented as of this encounter Care Teams Credit Intern Relationship Specialty Start Date End Date Shant Ballesteros Jr., MD [address] [place] [address] PCP - General Family Practice 01/19/14 documented as of this encounter
--- OUTSIDE RECORDS SUMMARY | 2025-06-14 16:17 | XMS_ITS | Encounter Summary ---
Author Organization [employer] Address [address] [place] [address] Care Team Providers Care Entry Analyst Name Role Phone Favian Maldonado MD, Shant Humphreys Primary Care Provider Encounter Details Date Type Department Care Team (Late st Contact Info) Description 11/26/2022 Lab Requisition [facility] Laboratory Services [address] [place] [address] Low Amaya, DO [address] [place] [address] Social History Tobacco Use Types Packs/Day Years Used Date Smoking Tobacco: Never Assessed Sex and Gender Information Value Date Recorded Sex Assigned at Not on file Legal Sex Male 9:45 AM MANAGER THERAPY Gender Identity Not on file Sexual Orientation Not on file documented as of this encounter Plan of Treatment Not on file documented as of this encounter Procedures Procedure Name Priority Date/Time Associated Diagnosis Comments CBC WITH DIFFERENTIAL Routine 11/26/2022 1:15 AM MANAGER THERAPY TRIGLYCERIDE Routine 11/26/2022 1:15 AM MANAGER THERAPY PHOSPHORUS Routine 11/26/2022 1:15 AM MANAGER THERAPY MAGNESIUM LEVEL Routine 11/26/2022 1:15 AM MANAGER THERAPY COMPREHENSIVE METABOLIC PANEL Routine 11/26/2022 1:15 AM MANAGER THERAPY documented in this encounter Results * (ABNORMAL) TRIGLYCERIDE (11/26/2022 1:15 AM MANAGER THERAPY) TRIGLYCERIDE 172(H) <150 mg/dL 11/26/2022 6:58 AM [facility] Blood Collection / Unknown 11/26/2022 1:15 AM MANAGER THERAPY 11/26/2022 6:01 AM MANAGER THERAPY Narrative [facility] - 11/26/2022 6:58 AM MANAGER THERAPY TRIGLYCERIDES mg/dL Normal < 150 Borderline High 150 - 199 High 200 - 499 Very High >= 500 Based on AHA/NCEP Guidelines. Low Amaya DO CHEMISTRY ORDERABLES Final R formerly [facility] Performing Organization Address City/[facility]/ZIP Co de Phone Number [facility] CLIA # [id number] [address] [id number] * PHOSPHORUS (11/26/2022 1:15 AM MANAGER THERAPY) PHOSPHORUS 3.2 2.5 - 4.5 mg/dL 11/26/2022 6:58 AM [facility] Blood Collection / Unknown 11/26/2022 1:15 AM MANAGER THERAPY 11/26/2022 6:01 AM MANAGER THERAPY Low Amaya DO CHEMISTRY ORDERABLES Final R esult [facility] CLIA # [id number] [address] [place], [place] [address] * MAGNESIUM LEVEL (11/26/2022 1:15 AM MANAGER THERAPY) MAGNESIUM 2.0 1.6 - 2.4 mg/dL 11/26/2022 6:58 AM MANAGER THERAPY [facility] Blood Collection / Unknown 11/26/2022 1:15 AM MANAGER THERAPY 11/26/2022 6:01 AM MANAGER THERAPY us Low Amaya DO CHEMISTRY ORDERABLES Final R esult [facility] CLIA # [id number] [address] [facility] [place] [address] * (ABNORMAL) CBC WITH DIFFERENTIAL (11/26/2022 1:15 AM MANAGER THERAPY) [facility] WBC 6.1 4.8 - 10.8 K/uL 11/26/2022 6:14 AM [facility] RBC 2.61(L) 4.60 - 6.20 M/uL 11/26/2022 6:14 AM [facility] HEMOGLOBIN 7.8(L) 14.0 - 18.0 g/dL 11/26/2022 6:14 AM [facility] HEMATOCRIT 26.5(L) 41.0 - 53.0 % 11/26/2022 6:14 AM [facility] MCV 101.5 84.0 - 103.0 fL 11/26/2022 6:14 AM [facility] MCH 29.9 27.0 - 34.0 pg 11/26/2022 6:14 AM [facility] MCHC 29.4(L) 30.0 - 35.0 g/dL 11/26/2022 6:14 AM [facility] RDW 18.2(H) 11.0 - 14.5 % 11/26/2022 6:14 AM [facility] RDW-STDEV 66.1(H) 37.0 - 54.0 fL 11/26/2022 6:14 AM [facility] PLATELETS 222 140 - 440 K/uL 11/26/2022 6:14 AM [facility] MPV 10.6 8.9 - 12.8 fL 11/26/2022 6:14 AM [facility] NEUTROPHILS 63 42 - 75 % 11/26/2022 6:14 AM [facility] LYMPHOCYTES 18(L) 24 - 44 % 11/26/2022 6:14 AM [facility] MONOCYTES 13(H) 2 - 10 % 11/26/2022 6:14 AM [facility] EOSINOPHILS 5 0 - 7 % 11/26/2022 6:14 AM [facility] BASOPHILS 1 0 - 1 % 11/26/2022 6:14 AM [facility] IMMATURE GRANULOCYTES 1 0 - 2 % 11/26/2022 6:14 AM [facility] NEUTROPHIL ABSOLUTE 3.84 2.00 - 8.00 K/uL 11/26/2022 6:14 AM [facility] LYMPHOCYTE ABSOLUTE 1.09(L) 1.20 - 4.00 K/uL 11/26/2022 6:14 AM [facility] MONOCYTE ABSOLUTE 0.79(H) 0.10 - 0.60 K/uL 11/26/2022 6:14 AM [facility] EOSINOPHIL ABSOLUTE 0.32 0.00 - 0.70 K/uL 11/26/2022 6:14 AM [facility] BASOPHILS ABSOLUTE 0.04 0.00 - 0.20 K/uL 11/26/2022 6:14 AM [facility] IMMATURE GRANULOCYTES ABSOLUTE 0.03 0.00 - 0.10 K/uL 11/26/2022 6:14 AM [facility] Blood Collection / Unknown 11/26/2022 1:15 AM MANAGER THERAPY 11/26/2022 6:01 AM [facility] us Low Amaya DO HEMATOLOGY ORDERABLES Final Result [facility] CLIA # [id number] [facility] [address] [place] [address] * (ABNORMAL) COMPREHENSIVE METABOLIC PANEL (11/26/2022 1:15 AM MANAGER THERAPY) [facility] SODIUM 140 136 - 145 mmol/L 11/26/2022 6:58 AM [facility] POTASSIUM 3.9 3.5 - 5.1 mmol/L 11/26/2022 6:58 AM [facility] CHLORIDE 103 98 - 107 mmol/L 11/26/2022 6:58 AM [facility] CO2 30(H) 22 - 29 mmol/L 11/26/2022 6:58 AM [facility] CALCIUM 9.3 8.8 - 10.2 mg/dL 11/26/2022 6:58 AM [facility] BUN 34(H) 8 - 23 mg/dL 11/26/2022 6:58 AM [facility] CREATININE 1.08 0.67 - 1.17 mg/dL 11/26/2022 6:58 AM [facility] GLUCOSE 129(H) 74 - 99 mg/dL 11/26/2022 6:58 AM [facility] TOTAL PROTEIN 6.4 6.4 - 8.3 g/dL 11/26/2022 6:58 AM [facility] ALBUMIN 2.9(L) 3.5 - 5.2 g/dL 11/26/2022 6:58 AM [facility] BILIRUBIN TOTAL 0.3 0.2 - 1.0 mg/dL 11/26/2022 6:58 AM [facility] ALKALINE PHOSPHATASE 86 40 - 129 U/L 11/26/2022 6:58 AM [facility] AST 14 10 - 50 U/L 11/26/2022 6:58 AM [facility] ALT 10 <=50 U/L 11/26/2022 6:58 AM [facility] GFR >60 >=60 mL/min/1.7 3 sq meter 11/26/2022 6:58 AM [facility] Comment:eGFR calculated with 2020 CKD-EPI equation. Vegetarian diet, extremely high or low muscle mass, and may affect results. Cystatin C with Glomerular Filtration Rate is a suitable alternative for these patients. ANION GAP 7(L) 9 - 20 mmol/L 11/26/2022 6:58 AM MANAGER THERAPY [facility] Blood Collection / Unknown 11/26/2022 1:15 AM MANAGER THERAPY 11/26/2022 6:01 AM MANAGER THERAPY Low Amaya DO CHEMISTRY ORDERABLES Final R esult [facility] CLIA # [id number] [facility] [address] documented in this encounter Visit Diagnoses Not on filedocumented in this encounter Additional Health Concerns Infection Onset Date Last Indicated Resolved Time C Diff 11/17/2022 11/17/2022 01/16/2023 1:16 AM CDT documented as of this encounter Care Teams Entry Analyst Relationship Specialty Start Date End Date Shant Ballesteros Jr., MD [address] [place] [address] PCP - General Family Practice 01/19/14 documented as of this encounter
--- OUTSIDE RECORDS SUMMARY | 2025-06-14 16:17 | XMS_ITS | Encounter Summary ---
Author Organization [facility] Address 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 Gender Identity Not on file Sexual Orientation Not on file documented as of this encounter Plan of Treatment Not on file documented as of this encounter Procedures Procedure Name Priority Date/Time Associated Diagnosis Comments CBC WITH DIFFERENTIAL Routine 12/17/2022 3:30 AM CDT documented in this encounter Results * (ABNORMAL) CBC WITH DIFFERENTIAL (12/17/2022 3:30 AM CDT) [facility] [address] WBC 7.8 4.8 - 10.8 K/uL 12/17/2022 6:20 AM T [facility] RBC 3.85(L) 4.60 - 6.20 M/uL 12/17/2022 6:20 AM T [facility] HEMOGLOBIN 11.5(L) 14.0 - 18.0 g/dL 12/17/2022 6:20 AM T [facility] HEMATOCRIT 36.6(L) 41.0 - 53.0 % 12/17/2022 6:20 AM T [facility] MCV 95.1 84.0 - 103.0 fL 12/17/2022 6:20 AM [facility] MCH 29.9 27.0 - 34.0 pg 12/17/2022 6:20 AM [facility] MCHC 31.4 30.0 - 35.0 g/dL 12/17/2022 6:20 AM [facility] RDW 15.6(H) 11.0 - 14.5 % 12/17/2022 6:20 AM [facility] RDW-STDEV 54.4(H) 37.0 - 54.0 fL 12/17/2022 6:20 AM [facility] PLATELETS 282 140 - 440 K/uL 12/17/2022 6:20 AM [facility] MPV 10.7 8.9 - 12.8 fL 12/17/2022 6:20 AM [facility] NEUTROPHILS 58 42 - 75 % 12/17/2022 6:20 AM [facility] LYMPHOCYTES 22(L) 24 - 44 % 12/17/2022 6:20 AM [facility] MONOCYTES 12(H) 2 - 10 % 12/17/2022 6:20 AM [facility] EOSINOPHILS 8(H) 0 - 7 % 12/17/2022 6:20 AM [facility] BASOPHILS 1 0 - 1 % 12/17/2022 6:20 AM CDT [facility] IMMATURE GRANULOCYTES 1 0 - 2 % 12/17/2022 6:20 AM CDT [facility] NEUTROPHIL ABSOLUTE 4.48 2.00 - 8.00 K/uL 12/17/2022 6:20 AM CDT [facility] LYMPHOCYTE ABSOLUTE 1.67 1.20 - 4.00 K/uL 12/17/2022 6:20 AM CDT [facility] MONOCYTE ABSOLUTE 0.90(H) 0.10 - 0.60 K/uL 12/17/2022 6:20 AM CDT [facility] EOSINOPHIL ABSOLUTE 0.61 0.00 - 0.70 K/uL 12/17/2022 6:20 AM CDT [facility] BASOPHILS ABSOLUTE 0.06 0.00 - 0.20 K/uL 12/17/2022 6:20 AM CDT [facility] IMMATURE GRANULOCYTES ABSOLUTE 0.04 0.00 - 0.10 K/uL 12/17/2022 6:20 AM CDT [facility] Blood Collection / Unknown 12/17/2022 3:30 AM CDT 12/17/2022 6:14 AM CDT us Andre Mary NATIONAL INVESTIGATIVE PRODUCER HEMATOLOGY ORDERABLES Fi nal Result Performing Organization Address City/State/[facility] Co de Phone Number [facility] CLIA # [id number] [address] [place] [address] documented in this encounter Visit Diagnoses Not on filedocumented in this encounter Additional Health Concerns Infection Onset Date Last Indicated Resolved Time C Diff 11/17/2022 11/17/2022 01/16/2023 1:16 AM CDT documented as of this encounter Care Teams Stator Connector Relationship Specialty Start Date End Date Shant Ballesteros Jr., MD [address] [place] [address] PCP - General Family Practice 01/19/14 documented as of this encounter
--- OUTSIDE RECORDS SUMMARY | 2025-06-14 16:17 | XMS_ITS | Encounter Summary ---
Author Organization [facility] Address [address] [place] [address] Care Team Providers Care Surveillance Supervisor Name Role Phone Favian Maldonado MD, Shant Humphreys Primary Care Provider Encounter Details Date Type Department Care Team (Late st Contact Info) Description 11/20/2022 Lab Requisition [facility] Laboratory Services [address] [place] [address] Andre Mary, MADHU [address] 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 Gender Identity Not on file Sexual Orientation Not on file documented as of this encounter Plan of Treatment Not on file documented as of this encounter Procedures Procedure Name Priority Date/Time Associated Diagnosis Comments CBC WITH DIFFERENTIAL Routine 11/20/2022 3:55 PM ELIGIBILITY SERVICES REPRESENTATIVE documented in this encounter Results * (ABNORMAL) CBC WITH DIFFERENTIAL (11/20/2022 3:55 PM ELIGIBILITY SERVICES REPRESENTATIVE) WBC 7.3 4.8 - 10.8 K/uL 11/20/2022 4:35 PM ELIGIBILITY SERVICES REPRESENTATIVE [facility] RBC 2.66(L) 4.60 - 6.20 M/uL 11/20/2022 4:35 PM ELIGIBILITY SERVICES REPRESENTATIVE [facility] HEMOGLOBIN 8.0(L) 14.0 - 18.0 g/dL 11/20/2022 4:35 PM [facility] HEMATOCRIT 27.1(L) 41.0 - 53.0 % 11/20/2022 4:35 PM [facility] MCV 101.9 84.0 - 103.0 fL 11/20/2022 4:35 PM [facility] MCH 30.1 27.0 - 34.0 pg 11/20/2022 4:35 PM [facility] MCHC 29.5(L) 30.0 - 35.0 g/dL 11/20/2022 4:35 PM [facility] RDW 17.7(H) 11.0 - 14.5 % 11/20/2022 4:35 PM [facility] RDW-STDEV 62.4(H) 37.0 - 54.0 fL 11/20/2022 4:35 PM [facility] PLATELETS 302 140 - 440 K/uL 11/20/2022 4:35 PM [facility] MPV 9.6 8.9 - 12.8 fL 11/20/2022 4:35 PM [facility] NEUTROPHILS 68 42 - 75 % 11/20/2022 4:35 PM [facility] LYMPHOCYTES 15(L) 24 - 44 % 11/20/2022 4:35 PM [facility] MONOCYTES 12(H) 2 - 10 % 11/20/2022 4:35 PM [facility] EOSINOPHILS 3 0 - 7 % 11/20/2022 4:35 PM [facility] BASOPHILS 0 0 - 1 % 11/20/2022 4:35 PM [facility] IMMATURE GRANULOCYTES 1 0 - 2 % 11/20/2022 4:35 PM [facility] NEUTROPHIL ABSOLUTE 5.00 2.00 - 8.00 K/uL 11/20/2022 4:35 PM [facility] LYMPHOCYTE ABSOLUTE 1.06(L) 1.20 - 4.00 K/uL 11/20/2022 4:35 PM ELIGIBILITY SERVICES REPRESENTATIVE [facility] MONOCYTE ABSOLUTE 0.91(H) 0.10 - 0.60 K/uL 11/20/2022 4:35 PM ELIGIBILITY SERVICES REPRESENTATIVE [facility] EOSINOPHIL ABSOLUTE 0.22 0.00 - 0.70 K/uL 11/20/2022 4:35 PM [facility] BASOPHILS ABSOLUTE 0.02 0.00 - 0.20 K/uL 11/20/2022 4:35 PM [facility] IMMATURE GRANULOCYTES ABSOLUTE 0.10 0.00 - 0.10 K/uL 11/20/2022 4:35 PM [facility] Blood Collection / Unknown 11/20/2022 3:55 PM ELIGIBILITY SERVICES REPRESENTATIVE 11/20/2022 4:30 PM ELIGIBILITY SERVICES REPRESENTATIVE us Andre Mary DIRECTOR OF RETAIL OPERATIONS HEMATOLOGY ORDERABLES Fi nal Result [facility] CLIA # [id number] [facility] [address] documented in this encounter Visit Diagnoses Not on filedocumented in this encounter Additional Health Concerns Infection Onset Date Last Indicated Resolved Time C Diff 11/17/2022 11/17/2022 01/16/2023 1:16 AM CDT documented as of this encounter Care Teams Surveillance Supervisor Relationship Specialty Start Date End Date Shant Ballesteros Jr., MD [address] [place] [address] PCP - General Family Practice 01/19/14 documented as of this encounter
--- OUTSIDE RECORDS SUMMARY | 2025-06-14 16:17 | XMS_ITS | Encounter Summary ---
Author Organization [email or web address] [facility] Address [address] [place] [address] Care Team Providers Care Control Equipment Electrician Name Role Phone Favian Maldonado MD, Shant Humphreys Primary Care Provider Encounter Details Date Type Department Care Team (Late st Contact Info) Description 11/24/2022 Lab Requisition [facility] [place] Laboratory Services [address] [place] [address] Andre Mary, MADHU [address] [facility] [address] [place] [address] Social History Tobacco Use Types Packs/Day Years Used Date Smoking Tobacco: Never Assessed Sex and Gender Information Value Date Recorded Sex Assigned at Not on file Legal Sex Male 9:45 AM PLANT OPERATIONS MANAGER Gender Identity Not on file Sexual Orientation Not on file documented as of this encounter Plan of Treatment Not on file documented as of this encounter Procedures Procedure Name Priority Date/Time Associated Diagnosis Comments EXTRA TUBE (SST/GOLD) Routine 11/24/2022 7:12 PM PLANT OPERATIONS MANAGER LACTIC ACID Stat 11/24/2022 7:12 PM PLANT OPERATIONS MANAGER PROCALCITONIN Stat 11/24/2022 6:37 PM PLANT OPERATIONS MANAGER CBC WITH DIFFERENTIAL Stat 11/24/2022 6:37 PM PLANT OPERATIONS MANAGER BLOOD CULTURE Stat 11/24/2022 6:37 PM PLANT OPERATIONS MANAGER BLOOD CULTURE Stat 11/24/2022 6:37 PM PLANT OPERATIONS MANAGER COMPREHENSIVE METABOLIC PANEL Stat 11/24/2022 6:37 PM PLANT OPERATIONS MANAGER documented in this encounter Results * EXTRA TUBE (SST/GOLD) (11/24/2022 7:12 PM PLANT OPERATIONS MANAGER) Blood Collection / Unknown 11/24/2022 7:12 PM PLANT OPERATIONS MANAGER 11/24/2022 7:42 PM PLANT OPERATIONS MANAGER Andre Mary DEMAND GENERATOR MANAGER CHEMISTRY ORDERABLES Fin al Result Performing Organization Address [facility] Co de Phone Number [facility] CLIA # [id number] [address] [place] [address] * LACTIC ACID (11/24/2022 7:12 PM PLANT OPERATIONS MANAGER) LACTIC ACID 1.0 <=2.0 mmol/L 11/24/2022 7:47 PM PLANT OPERATIONS MANAGER [facility] Blood Collection / Unknown 11/24/2022 7:12 PM PLANT OPERATIONS MANAGER 11/24/2022 7:25 PM PLANT OPERATIONS MANAGER Andre Mary DEMAND GENERATOR MANAGER CHEMISTRY ORDERABLES Fin al Result Performing Organization Address [facility] Co de Phone Number [facility] CLIA # [id number] [address] [place] [address] * PROCALCITONIN (11/24/2022 6:37 PM PLANT OPERATIONS MANAGER) PROCALCITONIN 0.08 <=0.08 ng/mL 11/24/2022 8:08 PM PLANT OPERATIONS MANAGER [facility] Blood Collection / Unknown 11/24/2022 6:37 PM PLANT OPERATIONS MANAGER 11/24/2022 7:25 PM PLANT OPERATIONS MANAGER Narrative [facility] - 11/24/2022 8:08 PM PLANT OPERATIONS MANAGER The utility of procalcitonin is limited/NOT recommended [...] ORDERABLES Fin al Result Performing Organization Address [facility]/ZIP Co de Phone Number [facility] CLIA # [id number] [address] [place], [place] [address] * BLOOD CULTURE (11/24/2022 6:37 PM PLANT OPERATIONS MANAGER) [facility] Signature BLOOD CULTURE No growth 11/29/2022 10:32 PM PLANT OPERATIONS MANAGER [facility] Blood Collection / Unknown 11/24/2022 6:37 PM PLANT OPERATIONS MANAGER 11/24/2022 7:25 PM PLANT OPERATIONS MANAGER Andre Mary NP MICROBIOLOGY - GENERAL O RDERABLES Final Result Performing Organization Address [facility] Co de Phone Number [facility] CLIA # [id number] [address] [place] [address] * BLOOD CULTURE (11/24/2022 6:37 PM PLANT OPERATIONS MANAGER) Pathologist [facility] BLOOD CULTURE No growth 11/29/2022 10:32 PM PLANT OPERATIONS MANAGER [facility] Blood Collection / Unknown 11/24/2022 6:37 PM PLANT OPERATIONS MANAGER 11/24/2022 7:25 PM PLANT OPERATIONS MANAGER Andre Mary NP MICROBIOLOGY - GENERAL O RDERABLES Final Result [facility] CLIA # [id number] [facility] [address] [address] [place] [address] * (ABNORMAL) CBC WITH DIFFERENTIAL (11/24/2022 6:37 PM PLANT OPERATIONS MANAGER) [facility] WBC 8.1 4.8 - 10.8 K/uL 11/24/2022 7:42 PM [facility] RBC 2.66(L) 4.60 - 6.20 M/uL 11/24/2022 7:42 PM [facility] HEMOGLOBIN 7.9(L) 14.0 - 18.0 g/dL 11/24/2022 7:42 PM [facility] HEMATOCRIT 27.6(L) 41.0 - 53.0 % 11/24/2022 7:42 PM [facility] MCV 103.8(H) 84.0 - 103.0 fL 11/24/2022 7:42 PM [facility] MCH 29.7 27.0 - 34.0 pg 11/24/2022 7:42 PM [facility] MCHC 28.6(L) 30.0 - 35.0 g/dL 11/24/2022 7:42 PM [facility] RDW 18.6(H) 11.0 - 14.5 % 11/24/2022 7:42 PM [facility] RDW-STDEV 69.4(H) 37.0 - 54.0 fL 11/24/2022 7:42 PM [facility] PLATELETS 248 140 - 440 K/uL 11/24/2022 7:42 PM [facility] MPV 10.3 8.9 - 12.8 fL 11/24/2022 7:42 PM [facility] NEUTROPHILS 73 42 - 75 % 11/24/2022 7:42 PM [facility] LYMPHOCYTES 11(L) 24 - 44 % 11/24/2022 7:42 PM [facility] MONOCYTES 13(H) 2 - 10 % 11/24/2022 7:42 PM [facility] EOSINOPHILS 3 0 - 7 % 11/24/2022 7:42 PM [facility] BASOPHILS 0 0 - 1 % 11/24/2022 7:42 PM [facility] IMMATURE GRANULOCYTES 1 0 - 2 % 11/24/2022 7:42 PM [facility] NEUTROPHIL ABSOLUTE 5.86 2.00 - 8.00 K/uL 11/24/2022 7:42 PM [facility] LYMPHOCYTE ABSOLUTE 0.87(L) 1.20 - 4.00 K/uL 11/24/2022 7:42 PM [facility] MONOCYTE ABSOLUTE 1.02(H) 0.10 - 0.60 K/uL 11/24/2022 7:42 PM [facility] EOSINOPHIL ABSOLUTE 0.21 0.00 - 0.70 K/uL 11/24/2022 7:42 PM [facility] BASOPHILS ABSOLUTE 0.03 0.00 - 0.20 K/uL 11/24/2022 7:42 PM [facility] IMMATURE GRANULOCYTES ABSOLUTE 0.07 0.00 - 0.10 K/uL 11/24/2022 7:42 PM [facility] Blood Collection / Unknown 11/24/2022 6:37 PM PLANT OPERATIONS MANAGER 11/24/2022 7:25 PM PLANT OPERATIONS MANAGER Andre Mary NP HEMATOLOGY ORDERABLES Fi nal Result [facility] CLIA # [id number] [address] [address] [place] [address] * (ABNORMAL) COMPREHENSIVE METABOLIC PANEL (11/24/2022 6:37 PM [facility]) SODIUM 144 136 - 145 mmol/L 11/24/2022 8:06 PM [facility] POTASSIUM 4.6 3.5 - 5.1 mmol/L 11/24/2022 8:06 PM [facility] CHLORIDE 105 98 - 107 mmol/L 11/24/2022 8:06 PM [facility] CO2 28 22 - 29 mmol/L 11/24/2022 8:06 PM [facility] CALCIUM 9.4 8.8 - 10.2 mg/dL 11/24/2022 8:06 PM [facility] BUN 42(H) 8 - 23 mg/dL 11/24/2022 8:06 PM [facility] CREATININE 1.50(H) 0.67 - 1.17 mg/dL 11/24/2022 8:06 PM [facility] GLUCOSE 102(H) 74 - 99 mg/dL 11/24/2022 8:06 PM [facility] TOTAL PROTEIN 6.5 6.4 - 8.3 g/dL 11/24/2022 8:06 PM [facility] ALBUMIN 2.9(L) 3.5 - 5.2 g/dL 11/24/2022 8:06 PM [facility] BILIRUBIN TOTAL 0.4 0.2 - 1.0 mg/dL 11/24/2022 8:06 PM [facility] ALKALINE PHOSPHATASE 88 40 - 129 U/L 11/24/2022 8:06 PM [facility] AST 12 10 - 50 U/L 11/24/2022 8:06 PM [facility] ALT 9 <=50 U/L 11/24/2022 8:06 PM [facility] GFR 51(L) >=60 mL/min/1. 73 sq meter 11/24/2022 8:06 PM PLANT OPERATIONS MANAGER [facility] Comment:eGFR calculated with 2020 CKD-EPI equation. Vegetarian diet, extremely high or low muscle mass, and may affect results. Cystatin C with Glomerular Filtration Rate is a suitable alternative for these patients. ANION GAP 11 9 - 20 mmol/L 11/24/2022 8:06 PM PLANT OPERATIONS MANAGER [facility] Blood Collection / Unknown 11/24/2022 6:37 PM PLANT OPERATIONS MANAGER 11/24/2022 7:25 PM PLANT OPERATIONS MANAGER us Andre Mary DEMAND GENERATOR MANAGER CHEMISTRY ORDERABLES Fin al Result [facility] CLIA # [id number] [facility] [address] documented in this encounter Visit Diagnoses Not on filedocumented in this encounter Additional Health Concerns Infection Onset Date Last Indicated Resolved Time C Diff 11/17/2022 11/17/2022 01/16/2023 1:16 AM CDT documented as of this encounter Care Teams Control Equipment Electrician Relationship Specialty Start Date End Date Shant Ballesteros Jr., MD [address] [place] [address] PCP - General Family Practice 01/19/14 documented as of this encounter
--- OUTSIDE RECORDS SUMMARY | 2025-06-14 16:17 | XMS_ITS | Encounter Summary ---
Author Organization [facility] Address 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 HEALTH CARE Gender Identity Not on file Sexual Orientation [...] Sarmiento MD HEMATOLOGY ORDERABLES Final Resu lt [facility] CLIA # [id number] [facility] [address] * (ABNORMAL) COMPREHENSIVE METABOLIC PANEL (12/19/2022 4:50 AM CDT) SODIUM 135(L) 136 - 145 mmol/L 12/19/2022 10:48 AM CDT [facility] POTASSIUM 5.3(H) 3.5 - 5.1 mmol/L 12/19/2022 10:48 AM CDT [facility] CHLORIDE 99 98 - 107 mmol/L 12/19/2022 10:48 AM CDT [facility] CO2 25 22 - 29 mmol/L 12/19/2022 10:48 AM CDT [facility] CALCIUM 10.4(H) 8.8 - 10.2 mg/dL 12/19/2022 10:48 AM CDT [facility] BUN 44(H) 8 - 23 mg/dL 12/19/2022 10:48 AM CDT [facility] CREATININE 1.13 0.67 - 1.17 mg/dL 12/19/2022 10:48 AM CDT [facility] GLUCOSE 116(H) 74 - 99 mg/dL 12/19/2022 10:48 AM CDT [facility] TOTAL PROTEIN 7.5 6.4 - 8.3 g/dL 12/19/2022 10:48 AM CDT [facility] ALBUMIN 3.8 3.5 - 5.2 g/dL 12/19/2022 10:48 AM CDT [facility] BILIRUBIN TOTAL <0.2(L) 0.2 - 1.0 mg/dL 12/19/2022 10:48 AM CDT [facility] ALKALINE PHOSPHATASE 111 40 - 129 U/L 12/19/2022 10:48 AM CDT [facility] AST 27 10 - 50 U/L 12/19/2022 10:48 AM CDT [facility] ALT 38 <=50 U/L 12/19/2022 10:48 AM CDT [facility] GFR >60 >=60 mL/min/1. 73 sq meter 12/19/2022 10:48 AM CDT [facility] Comment:eGFR calculated with 2020 CKD-EPI equation. Vegetarian diet, extremely high or low muscle mass, and may affect results. Cystatin C with Glomerular Filtration Rate is a suitable alternative for these patients. ANION GAP 11 9 - 20 mmol/L 12/19/2022 10:48 AM CDT [facility] Blood Collection / Unknown 12/19/2022 4:50 AM CDT 12/19/2022 10:29 AM CDT us Esther Sarmiento MD CHEMISTRY ORDERABLES Final Resul t [facility] # [id number] [address] [place] [address] documented in this encounter Visit Diagnoses Not on filedocumented in this encounter Additional Health Concerns Infection Onset Date Last Indicated Resolved Time C Diff 11/17/2022 11/17/2022 01/16/2023 1:16 AM CDT documented as of this encounter Care Teams Community Services Manager Relationship Specialty Start Date End Date Shant Ballesteros Jr., MD [address] [place] [phone] PCP - General Family Practice 01/19/14 documented as of this encounter
--- OUTSIDE RECORDS SUMMARY | 2025-06-14 16:17 | XMS_ITS | Encounter Summary ---
Author Organization [employer] Address [address] [place] [address] Care Team Providers Care Airplane Captain Name Role Phone Favian Maldonado MD, Shant Humphreys Primary Care Provider Encounter Details Date Type Department Care Team (Late st Contact Info) Description 11/21/2022 Lab Requisition [facility] Laboratory Services [address] [place] [address] Low Amaya, DO [address] [place] [phone] Social History Tobacco Use Types Packs/Day Years Used Date Smoking Tobacco: Never Assessed Sex and Gender Information Value Date Recorded Sex Assigned at Not on file Legal Sex Male 9:45 AM DAIRY BACTERIOLOGIST Gender Identity Not on file Sexual Orientation Not on file documented as of this encounter Plan of Treatment Not on file documented as of this encounter Procedures Procedure Name Priority Date/Time Associated Diagnosis Comments PHOSPHORUS Routine 11/21/2022 4:40 AM DAIRY BACTERIOLOGIST MAGNESIUM LEVEL Routine 11/21/2022 4:40 AM DAIRY BACTERIOLOGIST BASIC METABOLIC PANEL Routine 11/21/2022 4:40 AM DAIRY BACTERIOLOGIST documented in this encounter Results * MAGNESIUM LEVEL (11/21/2022 4:40 AM DAIRY BACTERIOLOGIST) MAGNESIUM 1.8 1.6 - 2.4 mg/dL 11/21/2022 5:[address] [facility] Blood Collection / Unknown 11/21/2022 4:40 AM DAIRY BACTERIOLOGIST 11/21/2022 5:08 AM DAIRY BACTERIOLOGIST Low Amaya DO CHEMISTRY ORDERABLES Final R esult Performing Organization Address [facility]/ZIP Co de Phone Number [facility] CLIA # [id number] [id number] [place] [address] * PHOSPHORUS (11/21/2022 4:40 AM DAIRY BACTERIOLOGIST) PHOSPHORUS 2.8 2.5 - 4.5 mg/dL 11/21/2022 5:26 AM [facility] Blood Collection / Unknown 11/21/2022 4:40 AM DAIRY BACTERIOLOGIST 11/21/2022 5:08 AM DAIRY BACTERIOLOGIST Low Amaya DO CHEMISTRY ORDERABLES Final R esult Performing Organization Address City/[facility]/ZIP Co de Phone Number [facility] CLIA # [id number] [address] [address] * (ABNORMAL) BASIC METABOLIC PANEL (11/21/2022 4:40 AM DAIRY BACTERIOLOGIST) SODIUM 145 136 - 145 mmol/L 11/21/2022 5:26 AM [facility] [employer] [facility] POTASSIUM 3.5 3.5 - 5.1 mmol/L 11/21/2022 5:26 AM [facility] CHLORIDE 106 98 - 107 mmol/L 11/21/2022 5:26 AM [facility] CO2 31(H) 22 - 29 mmol/L 11/21/2022 5:26 AM [facility] CALCIUM 9.3 8.8 - 10.2 mg/dL 11/21/2022 5:26 AM [facility] BUN 29(H) 8 - 23 mg/dL 11/21/2022 5:26 AM [facility] CREATININE 0.95 0.67 - 1.17 mg/dL 11/21/2022 5:26 AM [facility] GLUCOSE 136(H) 74 - 99 mg/dL 11/21/2022 5:26 AM [facility] GFR >60 >=60 mL/min/1.7 3 sq meter 11/21/2022 5:26 AM [facility] Comment:eGFR calculated with 2020 CKD-EPI equation. Vegetarian diet, extremely high or low muscle mass, and may affect results. Cystatin C with Glomerular Filtration Rate is a suitable alternative for these patients. ANION GAP 8(L) 9 - 20 mmol/L 11/21/2022 5:26 AM [facility] Blood Collection / Unknown 11/21/2022 4:40 AM DAIRY BACTERIOLOGIST 11/21/2022 5:08 AM DAIRY BACTERIOLOGIST Low Amaya DO CHEMISTRY ORDERABLES Final R esult [facility] CLIA # [id number] [address] [place] [address] documented in this encounter Visit Diagnoses Not on filedocumented in this encounter Additional Health Concerns Infection Onset Date Last Indicated Resolved Time C Diff 11/17/2022 11/17/2022 01/16/2023 1:16 AM CDT documented as of this encounter Care Teams Airplane Captain Relationship Specialty Start Date End Date Shant Ballesteros Jr., MD [address] [place] [address] PCP - General Family Practice 01/19/14 documented as of this encounter
--- OUTSIDE RECORDS SUMMARY | 2025-06-14 16:17 | XMS_ITS | Encounter Summary ---
Author Organization [employer] Address [address] [place] [address] Care Team Providers Care Pea Viner Mechanic Name Role Phone Favian Maldonado MD, Shant Humphreys Primary Care Provider Encounter Details Date Type Department Care Team (Late st Contact Info) Description 11/25/2022 Lab Requisition [facility] Laboratory Services [address] [place] [address] Esther Sarmiento MD [address] [place] [address] Social History Tobacco Use Types Packs/Day Years Used Date Smoking Tobacco: Never Assessed Sex and Gender Information Value Date Recorded Sex Assigned at Not on file Legal Sex Male 9:45 AM CHIEF MARKETING OFFICER Gender Identity Not on file Sexual Orientation Not on file documented as of this encounter Plan of Treatment Not on file documented as of this encounter Procedures Procedure Name Priority Date/Time Associated Diagnosis Comments BRAIN NATRIURETIC PEPTIDE, BNP OR PROBNP Routine 11/25/2022 1:40 AM CHIEF MARKETING OFFICER documented in this encounter Results * (ABNORMAL) BRAIN NATRIURETIC PEPTIDE, BNP OR PROBNP (11/25/2022 1:40 AM CHIEF MARKETING OFFICER) PROBNP, N TERMINAL 2,221(H) 0 - 125 pg/mL 11/25/2022 6:17 AM CHIEF MARKETING OFFICER [facility] Blood Collection / Unknown 11/25/2022 1:40 AM CHIEF MARKETING OFFICER 11/25/2022 6:02 AM CHIEF MARKETING OFFICER Esther Sarmiento MD CHEMISTRY ORDERABLES Final Resul t Performing Organization Address City/State/[facility] Co de Phone Number [facility] # [id number] [address] [address] [place] [address] documented in this encounter Visit Diagnoses Not on filedocumented in this encounter Additional Health Concerns Infection Onset Date Last Indicated Resolved Time C Diff 11/17/2022 11/17/2022 01/16/2023 1:16 AM CDT documented as of this encounter Care Teams Pea Viner Mechanic Relationship Specialty Start Date End Date Shant Ballesteros Jr., MD [address] [place] [address] PCP - General Family Practice 01/19/14 documented as of this encounter
--- OUTSIDE RECORDS SUMMARY | 2025-06-14 16:18 | XMS_ITS | Encounter Summary ---
Author Organization [employer] Address [address] [place] [address] Care Team Providers Care Line Prep Cook Name Role Phone Favian Maldonado MD, Shant Humphreys Primary Care Provider Encounter Details Date Type Department Care Team (Late st Contact Info) Description 11/28/2022 Lab Requisition [facility] Laboratory Services [address] [place] [address] Low Amaya, DO [address] [place] [address] Social History Tobacco Use Types Packs/Day Years Used Date Smoking Tobacco: Never Assessed Sex and Gender Information Value Date Recorded Sex Assigned at Not on file Legal Sex Male 9:45 AM DIE CAST OPERATOR Gender Identity Not on file Sexual Orientation Not on file documented as of this encounter Plan of Treatment Not on file documented as of this encounter Visit Diagnoses Not on filedocumented in this encounter Additional Health Concerns Infection Onset Date Last Indicated Resolved Time C Diff 11/17/2022 11/17/2022 01/16/2023 1:16 AM CDT documented as of this encounter Care Teams Line Prep Cook Relationship Specialty Start Date End Date Shant Ballesteros Jr., MD [address] [place] [address] PCP - General Family Practice 01/19/14 documented as of this encounter
--- OUTSIDE RECORDS SUMMARY | 2025-06-14 16:18 | XMS_ITS | Encounter Summary ---
Author Organization [employer] [facility] Address [address] [place] [address] Care Team Providers Care Sat Act Instructor Name Role Phone Favian Maldonado MD, Shant Humphreys Primary Care Provider Encounter Details Date Type Department Care Team (Late st Contact Info) Description 11/19/2022 Lab Requisition [facility] Laboratory Services [address] [place] [address] Low Amaya, DO [address] [place] [phone] Social History Tobacco Use Types Packs/Day Years Used Date Smoking Tobacco: Never Assessed Sex and Gender Information Value Date Recorded Sex Assigned at Not on file Legal Sex Male 9:45 AM TABLE RUNNER Gender Identity Not on file Sexual Orientation Not on file documented as of this encounter Plan of Treatment Not on file documented as of this encounter Procedures Procedure Name Priority Date/Time Associated Diagnosis Comments TRIGLYCERIDE Routine 11/19/2022 2:55 AM TABLE RUNNER PHOSPHORUS Routine 11/19/2022 2:55 AM TABLE RUNNER MAGNESIUM LEVEL Routine 11/19/2022 2:55 AM TABLE RUNNER COMPREHENSIVE METABOLIC PANEL Routine 11/19/2022 2:55 AM TABLE RUNNER documented in this encounter Results * TRIGLYCERIDE (11/19/2022 2:55 AM TABLE RUNNER) TRIGLYCERIDE 126 <150 mg/dL 11/19/2022 6:43 AM TABLE RUNNER [facility] Blood Collection / Unknown 11/19/2022 2:55 AM TABLE RUNNER 11/19/2022 6:22 AM TABLE RUNNER Narrative [facility] - 11/19/2022 6:43 AM TABLE RUNNER TRIGLYCERIDES mg/dL Normal < 150 Borderline High 150 - 199 High 200 - 499 Very High >= 500 Based on AHA/NCEP Guidelines. Low Amaya DO CHEMISTRY ORDERABLES Final R esult Performing Organization Address [facility] Co de Phone Number [facility] CLIA # [id number] [address] [facility] [place] [address] * PHOSPHORUS (11/19/2022 2:55 AM TABLE RUNNER) PHOSPHORUS 4.4 2.5 - 4.5 mg/dL 11/19/2022 6:43 AM TABLE RUNNER [facility] Blood Collection / Unknown 11/19/2022 2:55 AM TABLE RUNNER 11/19/2022 6:22 AM TABLE RUNNER Low Amaya DO CHEMISTRY ORDERABLES Final R esult Performing Organization Address [facility] Co de Phone Number [facility] CLIA # [id number] [address] [address] * MAGNESIUM LEVEL (11/19/2022 2:55 AM TABLE RUNNER) MAGNESIUM 1.9 1.6 - 2.4 mg/dL 11/19/2022 6:43 AM TABLE RUNNER [facility] Blood Collection / Unknown 11/19/2022 2:55 AM TABLE RUNNER 11/19/2022 6:22 AM TABLE RUNNER Low Amaya DO CHEMISTRY ORDERABLES Final R esult Performing Organization Address [facility] Co de Phone Number [facility] CLIA # [id number] [address] [address] [place] [address] * (ABNORMAL) COMPREHENSIVE METABOLIC PANEL (11/19/2022 2:55 AM TABLE RUNNER) SODIUM 144 136 - 145 mmol/L 11/19/2022 6:43 AM [facility] POTASSIUM 3.5 3.5 - 5.1 mmol/L 11/19/2022 6:43 AM [facility] CHLORIDE 105 98 - 107 mmol/L 11/19/2022 6:43 AM [facility] CO2 32(H) 22 - 29 mmol/L 11/19/2022 6:43 AM [facility] CALCIUM 9.1 8.8 - 10.2 mg/dL 11/19/2022 6:43 AM [facility] BUN 22 8 - 23 mg/dL 11/19/2022 6:43 AM [facility] CREATININE 0.99 0.67 - 1.17 mg/dL 11/19/2022 6:43 AM [facility] GLUCOSE 169(H) 74 - 99 mg/dL 11/19/2022 6:43 AM [facility] TOTAL PROTEIN 6.6 6.4 - 8.3 g/dL 11/19/2022 6:43 AM [facility] ALBUMIN 3.0(L) 3.5 - 5.2 g/dL 11/19/2022 6:43 AM [facility] BILIRUBIN TOTAL 0.2 0.2 - 1.0 mg/dL 11/19/2022 6:43 AM [facility] ALKALINE PHOSPHATASE 64 40 - 129 U/L 11/19/2022 6:43 AM [facility] AST 13 10 - 50 U/L 11/19/2022 6:43 AM [facility] ALT 8 <=50 U/L 11/19/2022 6:43 AM [facility] GFR >60 >=60 mL/min/1.7 3 sq meter 11/19/2022 6:43 AM TABLE RUNNER [facility]ORATORY [facility] Comment:eGFR calculated with 2020 CKD-EPI equation. Vegetarian diet, extremely high or low muscle mass, and may affect results. Cystatin C with Glomerular Filtration Rate is a suitable alternative for these patients. ANION GAP 7(L) 9 - 20 mmol/L 11/19/2022 6:43 AM TABLE RUNNER [facility] Blood Collection / Unknown 11/19/2022 2:55 AM TABLE RUNNER 11/19/2022 6:22 AM TABLE RUNNER us Low Amaya DO CHEMISTRY ORDERABLES Final R esult [facility] CLIA # [id number] [address] [address] documented in this encounter Visit Diagnoses Not on filedocumented in this encounter Additional Health Concerns Infection Onset Date Last Indicated Resolved Time C Diff 11/17/2022 11/17/2022 01/16/2023 1:16 AM CDT documented as of this encounter Care Teams Sat Act Instructor Relationship Specialty Start Date End Date Shant Ballesteros Jr., MD [address] [place] [address] PCP - General Family Practice 01/19/14 documented as of this encounter
--- OUTSIDE RECORDS SUMMARY | 2025-06-14 16:18 | XMS_ITS | Encounter Summary ---
Author Organization [employer] Address [address] [place] [address] Care Team Providers Care Cat Hooker Name Role Phone Favian Maldonado MD, Shant Humphreys Primary Care Provider Encounter Details Date Type Department Care Team (Late st Contact Info) Description 11/30/[address] [facility] Laboratory Services [address] [place] [address] Low Amaya, DO [address] [place] [phone] Social History Tobacco Use Types Packs/Day Years Used Date Smoking Tobacco: Never Assessed Sex and Gender Information Value Date Recorded Sex Assigned at Not on file Legal Sex Male 9:45 AM BATON TEACHER Gender Identity Not on file Sexual Orientation Not on file documented as of this encounter Plan of Treatment Not on file documented as of this encounter Procedures Procedure Name Priority Date/Time Associated Diagnosis Comments PHOSPHORUS Routine 11/30/2022 4:55 AM BATON TEACHER MAGNESIUM LEVEL Routine 11/30/2022 4:55 AM BATON TEACHER BASIC METABOLIC PANEL Routine 11/30/2022 4:55 AM BATON TEACHER documented in this encounter Results * MAGNESIUM LEVEL (11/30/2022 4:55 AM BATON TEACHER) MAGNESIUM 2.0 1.6 - 2.4 mg/dL 11/30/2022 8:00 AM BATON TEACHER [facility] Blood Collection / Unknown 11/30/2022 4:55 AM BATON TEACHER 11/30/2022 6:21 AM BATON TEACHER Low Amaya DO CHEMISTRY ORDERABLES Final R esult Performing Organization Address [facility]/ZIP Co de Phone Number [facility] CLIA # [id number] [address] [address] * PHOSPHORUS (11/30/2022 4:55 AM BATON TEACHER) PHOSPHORUS 3.6 2.5 - 4.5 mg/dL 11/30/2022 6:35 AM [facility] Blood Collection / Unknown 11/30/2022 4:55 AM BATON TEACHER 11/30/2022 6:21 AM BATON TEACHER Low Amaya DO CHEMISTRY ORDERABLES Final R esult Performing Organization Address [facility]/ZIP Co de Phone Number [facility] CLIA # [id number] [address] [address] * (ABNORMAL) BASIC METABOLIC PANEL (11/30/2022 4:55 AM BATON TEACHER) SODIUM 140 136 - 145 mmol/L 11/30/2022 6:35 AM [facility] POTASSIUM 4.1 3.5 - 5.1 mmol/L 11/30/2022 6:35 AM [facility] CHLORIDE 101 98 - 107 mmol/L 11/30/2022 6:35 AM [facility] CO2 34(H) 22 - 29 mmol/L 11/30/2022 6:35 AM [facility] CALCIUM 9.8 8.8 - 10.2 mg/dL 11/30/2022 6:35 AM [facility] BUN 31(H) 8 - 23 mg/dL 11/30/2022 6:35 AM [facility] CREATININE 0.99 0.67 - 1.17 mg/dL 11/30/2022 6:35 AM [facility] GLUCOSE 129(H) 74 - 99 mg/dL 11/30/2022 6:35 AM [facility] GFR >60 >=60 mL/min/1.7 3 sq meter 11/30/2022 6:35 AM [facility] Comment:eGFR calculated with 2020 CKD-EPI equation. Vegetarian diet, extremely high or low muscle mass, and may affect results. Cystatin C with Glomerular Filtration Rate is a suitable alternative for these patients. ANION GAP 5(L) 9 - 20 mmol/L 11/30/2022 6:35 AM [facility] Blood Collection / Unknown 11/30/2022 4:55 AM BATON TEACHER 11/30/2022 6:21 AM BATON TEACHER Low Amaya DO CHEMISTRY ORDERABLES Final R esult [facility] CLIA # [id number] [address] [place] [address] documented in this encounter Visit Diagnoses Not on filedocumented in this encounter Additional Health Concerns Infection Onset Date Last Indicated Resolved Time C Diff 11/17/2022 11/17/2022 01/16/2023 1:16 AM CDT documented as of this encounter Care Teams Cat Hooker Relationship Specialty Start Date End Date Shant Ballesteros Jr., MD [address] [place] [address] PCP - General Family Practice 01/19/14 documented as of this encounter
--- OUTSIDE RECORDS SUMMARY | 2025-06-14 16:18 | XMS_ITS | Encounter Summary ---
Author Organization [facility] Address [address] [place] [address] Care Team Providers Care Addictions Counselor Assistant Name Role Phone Favian Maldonado MD, Shant Humphreys Primary Care Provider Encounter Details Date Type Department Care Team (Late st Contact Info) Description 12/06/2022 Lab Requisition [facility] Laboratory Services [address] [place] [address] Esther Sarmiento MD [address] [place] [address] Social History Tobacco Use Types Packs/Day Years Used Date Smoking Tobacco: Never Assessed Sex and Gender Information Value Date Recorded Sex Assigned at Not on file Legal Sex Male 9:45 AM CARTRIDGE LOADER Gender Identity Not on file Sexual Orientation Not on file documented as of this encounter Plan of Treatment Not on file documented as of this encounter Procedures Procedure Name Priority Date/Time Associated Diagnosis Comments EXTRA TUBE (GREEN) Routine 12/06/2022 3:00 AM CARTRIDGE LOADER documented in this encounter Results * EXTRA TUBE (GREEN) (12/06/2022 3:00 AM CARTRIDGE LOADER) Blood Collection / Unknown 12/06/2022 3:00 AM CARTRIDGE LOADER 12/06/2022 7:33 AM CARTRIDGE LOADER us Esther Sarmiento MD CHEMISTRY ORDERABLES Final Resul t [facility] LABORATORY [facility] CLIA # [id number] [address] [facility] [place] [address] documented in this encounter Visit Diagnoses Not on filedocumented in this encounter Additional Health Concerns Infection Onset Date Last Indicated Resolved Time C Diff 11/17/2022 11/17/2022 01/16/2023 1:16 AM CDT documented as of this encounter Care Teams Addictions Counselor Assistant Relationship Specialty Start Date End Date Shant Ballesteros Jr., MD [address] [place] [address] PCP - General Family Practice 01/19/14 documented as of this encounter
--- OUTSIDE RECORDS SUMMARY | 2025-06-14 16:18 | XMS_ITS | Encounter Summary ---
Author Organization [employer] [facility] Address [address] [place] [address] Care Team Providers Care Application Development Intern Name Role Phone Favian Maldonado MD, Shant Humphreys Primary Care Provider Encounter Details Date Type Department Care Team (Late st Contact Info) Description 11/26/2022 Lab Requisition [facility] Laboratory Services [address] [place] [address] Low Amaya, DO [address] [place] [address] Social History Tobacco Use Types Packs/Day Years Used Date Smoking Tobacco: Never Assessed Sex and Gender Information Value Date Recorded Sex Assigned at Not on file Legal Sex Male 9:45 AM FOOD BAGGING MACHINE OPERATOR Gender Identity Not on file Sexual Orientation Not on file documented as of this encounter Plan of Treatment Not on file documented as of this encounter Procedures Procedure Name Priority Date/Time Associated Diagnosis Comments CALCIUM IONIZED Routine 11/26/2022 6:20 AM FOOD BAGGING MACHINE OPERATOR documented in this encounter Results * CALCIUM IONIZED (11/26/2022 6:20 AM FOOD BAGGING MACHINE OPERATOR) CALCIUM IONIZED 5.3 4.8 - 5.6 mg/dL 11/27/2022 9:49 AM FOOD BAGGING MACHINE OPERATOR [facility] Blood Collection / Unknown 11/26/2022 6:20 AM FOOD BAGGING MACHINE OPERATOR 11/26/2022 9:28 AM FOOD BAGGING MACHINE OPERATOR Narrative [facility] - 11/27/2022 9:49 AM FOOD BAGGING MACHINE OPERATOR Performing Organization Information: Site ID: [id number] Name: [facility] Address: [address] [address] Director: Andrew Alvarado MD us Low Amaya DO CHEMISTRY ORDERABLES Final R esult [facility] documented in this encounter Visit Diagnoses Not on filedocumented in this encounter Additional Health Concerns Infection Onset Date Last Indicated Resolved Time C Diff 11/17/2022 11/17/2022 01/16/2023 1:16 AM CDT documented as of this encounter Care Teams Application Development Intern Relationship Specialty Start Date End Date Shant Ballesteros Jr., MD [address] [place] [address] PCP - General Family Practice 01/19/14 documented as of this encounter
--- OUTSIDE RECORDS SUMMARY | 2025-06-14 16:18 | XMS_ITS | Clinical Summary ---
Author Organization [facility] Address [address] [place] [address] Phone Care Team Providers Care Senior Cognos Developer Name Role Phone Favian Maldonado MD, Shant [...] (1 - 1-dose 75+ series) 2030 Insurance [employer] PLUS [id number] HMO Care Teams Senior Cognos Developer Relationship Specialty Start Date End Date Shant Ballesteros Jr., MD [address] [place] [address] PCP - General Family Practice 01/19/14
--- OUTSIDE RECORDS SUMMARY | 2025-06-14 16:18 | XMS_ITS | Encounter Summary ---
Author Organization [employer] Address [address] [place] [address] Care Team Providers Care Marine Electronics Technician Name Role Phone Favian Maldonado MD, Shant Humphreys Primary Care Provider Encounter Details Date Type Department Care Team (Late st Contact Info) Description 12/05/2022 Lab Requisition [facility] Laboratory Services [address] [place] [address] Low Amaya, DO [address] [place] [phone] Social History Tobacco Use Types Packs/Day Years Used Date Smoking Tobacco: Never Assessed Sex and Gender Information Value Date Recorded Sex Assigned at Not on file Legal Sex Male 9:45 AM HEAVY TRUCK DRIVER Gender Identity Not on file Sexual Orientation Not on file documented as of this encounter Plan of Treatment Not on file documented as of this encounter Procedures Procedure Name Priority Date/Time Associated Diagnosis Comments PHOSPHORUS Routine 12/05/2022 6:30 AM HEAVY TRUCK DRIVER MAGNESIUM LEVEL Routine 12/05/2022 6:30 AM HEAVY TRUCK DRIVER BASIC METABOLIC PANEL Routine 12/05/2022 6:30 AM HEAVY TRUCK DRIVER documented in this encounter Results * MAGNESIUM LEVEL (12/05/2022 6:30 AM HEAVY TRUCK DRIVER) MAGNESIUM 2.0 1.6 - 2.4 mg/dL 12/05/2022 8:37 AM HEAVY TRUCK DRIVER [facility] Blood Collection / Unknown 12/05/2022 6:30 AM HEAVY TRUCK DRIVER 12/05/2022 8:18 AM HEAVY TRUCK DRIVER Low Amaya DO CHEMISTRY ORDERABLES Final R esult Performing Organization Address [facility]/ZIP Co de Phone Number [facility] CLIA # [id number] [address] [address] * PHOSPHORUS (12/05/2022 6:30 AM HEAVY TRUCK DRIVER) PHOSPHORUS 4.0 2.5 - 4.5 mg/dL 12/05/2022 8:37 AM [facility] Blood Collection / Unknown 12/05/2022 6:30 AM HEAVY TRUCK DRIVER 12/05/2022 8:18 AM HEAVY TRUCK DRIVER Low Amaya DO CHEMISTRY ORDERABLES Final R esult Performing Organization Address [facility] Co de Phone Number [facility] CLIA # [id number] [address] [address] * (ABNORMAL) BASIC METABOLIC PANEL (12/05/2022 6:30 AM HEAVY TRUCK DRIVER) SODIUM 141 136 - 145 mmol/L 12/05/2022 8:37 AM [facility] POTASSIUM 4.4 3.5 - 5.1 mmol/L 12/05/2022 8:37 AM [facility] CHLORIDE 105 98 - 107 mmol/L 12/05/2022 8:37 AM [facility] CO2 32(H) 22 - 29 mmol/L 12/05/2022 8:37 AM [facility] CALCIUM 10.2 8.8 - 10.2 mg/dL 12/05/2022 8:37 AM [facility] BUN 35(H) 8 - 23 mg/dL 12/05/2022 8:37 AM [facility] CREATININE 0.93 0.67 - 1.17 mg/dL 12/05/2022 8:37 AM [facility] GLUCOSE 116(H) 74 - 99 mg/dL 12/05/2022 8:37 AM [facility] GFR >60 >=60 mL/min/1.7 3 sq meter 12/05/2022 8:37 AM [facility] Comment:eGFR calculated with 2020 CKD-EPI equation. Vegetarian diet, extremely high or low muscle mass, and may affect results. Cystatin C with Glomerular Filtration Rate is a suitable alternative for these patients. ANION GAP 4(L) 9 - 20 mmol/L 12/05/2022 8:37 AM [facility] Blood Collection / Unknown 12/05/2022 6:30 AM HEAVY TRUCK DRIVER 12/05/2022 8:18 AM HEAVY TRUCK DRIVER Low Amaya DO CHEMISTRY ORDERABLES Final [facility] esult [id number] [address] [place] [address] documented in this encounter Visit Diagnoses Not on filedocumented in this encounter Additional Health Concerns Infection Onset Date Last Indicated Resolved Time C Diff 11/17/2022 11/17/2022 01/16/2023 1:16 AM CDT documented as of this encounter Care Teams Marine Electronics Technician Relationship Specialty Start Date End Date Shant Ballesteros Jr., MD [address] [place] [address] PCP - General Family Practice 01/19/14 documented as of this encounter
--- OUTSIDE RECORDS SUMMARY | 2025-06-14 16:18 | XMS_ITS | Encounter Summary ---
Author Organization [facility] Address [address] [place] [address] Care Team Providers Care Kitchen Runner Name Role Phone Favian Maldonado MD, Shant Humphreys Primary Care Provider Encounter Details Date Type Department Care Team (Late st Contact Info) Description 11/10/2022 Lab Requisition [facility] Laboratory Services [address] [place] [address] Soni Jeffery MD [address] [place] [address] Social History Tobacco Use Types Packs/Day Years Used Date Smoking Tobacco: Never Assessed Sex and Gender Information Value Date Recorded Sex Assigned at Not on file Legal Sex Male 9:45 AM TECHNICIAN Gender Identity Not on file Sexual Orientation Not on file documented as of this encounter Plan of Treatment Not on file documented as of this encounter Procedures Procedure Name Priority Date/Time Associated Diagnosis Comments CBC WITH DIFFERENTIAL Stat 11/10/2022 2:20 PM TECHNICIAN documented in this encounter Results * (ABNORMAL) CBC WITH DIFFERENTIAL (11/10/2022 2:20 PM TECHNICIAN) WBC 5.2 4.8 - 10.8 K/uL 11/10/2022 3:18 PM TECHNICIAN [facility] RBC 2.60(L) 4.60 - 6.20 M/uL 11/10/2022 3:18 PM TECHNICIAN [facility] HEMOGLOBIN 7.6(L) 14.0 - 18.0 g/dL 11/10/2022 3:18 PM [facility] HEMATOCRIT 25.3(L) 41.0 - 53.0 % 11/10/2022 3:18 PM [facility] MCV 97.3 84.0 - 103.0 fL 11/10/2022 3:18 PM [facility] MCH 29.2 27.0 - 34.0 pg 11/10/2022 3:18 PM [facility] MCHC 30.0 30.0 - 35.0 g/dL 11/10/2022 3:18 PM [facility] RDW 15.8(H) 11.0 - 14.5 % 11/10/2022 3:18 PM [facility] RDW-STDEV 56.3(H) 37.0 - 54.0 fL 11/10/2022 3:18 PM [facility] PLATELETS 249 140 - 440 K/uL 11/10/2022 3:18 PM [facility] MPV 11.0 8.9 - 12.8 fL 11/10/2022 3:18 PM [facility] NEUTROPHILS 62 42 - 75 % 11/10/2022 3:18 PM [facility] LYMPHOCYTES 15(L) 24 - 44 % 11/10/2022 3:18 PM [facility] MONOCYTES 17(H) 2 - 10 % 11/10/2022 3:18 PM [facility] EOSINOPHILS 6 0 - 7 % 11/10/2022 3:18 PM [facility] BASOPHILS 1 0 - 1 % 11/10/2022 3:18 PM [facility] IMMATURE GRANULOCYTES 1 0 - 2 % 11/10/2022 3:18 PM [facility] NEUTROPHIL ABSOLUTE 3.22 2.00 - 8.00 K/uL 11/10/2022 3:18 PM [facility] LYMPHOCYTE ABSOLUTE 0.78(L) 1.20 - 4.00 K/uL 11/10/2022 3:18 PM [facility] MONOCYTE ABSOLUTE 0.87(H) 0.10 - 0.60 K/uL 11/10/2022 3:18 PM TECHNICIAN [facility] EOSINOPHIL ABSOLUTE 0.30 0.00 - 0.70 K/uL 11/10/2022 3:18 PM TECHNICIAN [facility] BASOPHILS ABSOLUTE 0.03 0.00 - 0.20 K/uL 11/10/2022 3:18 PM TECHNICIAN [facility] IMMATURE GRANULOCYTES ABSOLUTE 0.03 0.00 - 0.10 K/uL 11/10/2022 3:18 PM TECHNICIAN [facility] Blood Collection / Unknown 11/10/2022 2:20 PM TECHNICIAN 11/10/2022 3:09 PM TECHNICIAN Soni Jeffery MD HEMATOLOGY ORDERABLES Final Resu lt [facility] CLIA # [id number] Critical access hospital[address] [address] documented in this encounter Visit Diagnoses Not on filedocumented in this encounter Additional Health Concerns Infection Onset Date Last Indicated Resolved Time C Diff 11/17/2022 11/17/2022 01/16/2023 1:16 AM CDT documented as of this encounter Care Teams Kitchen Runner Relationship Specialty Start Date End Date Shant Ballesteros Jr., MD [address] [place] [address] PCP - General Family Practice 01/19/14 documented as of this encounter
--- OUTSIDE RECORDS SUMMARY | 2025-06-14 16:18 | XMS_ITS | Encounter Summary ---
Author Organization [employer] [facility] Address [address] [place] [address] Care Team Providers Care Emergency Dept Tech Name Role Phone Favian Maldonado MD, Shant Humphreys Primary Care Provider Encounter Details Date Type Department Care Team (Late st Contact Info) Description 11/19/2022 Lab Requisition [facility] Laboratory Services [address] [place] [address] Low Amaya, DO [address] [place] [address] Social History Tobacco Use Types Packs/Day Years Used Date Smoking Tobacco: Never Assessed Sex and Gender Information Value Date Recorded Sex Assigned at Not on file Legal Sex Male 9:45 AM END TOUCHING MACHINE OPERATOR Gender Identity Not on file Sexual Orientation Not on file documented as of this encounter Plan of Treatment Not on file documented as of this encounter Procedures Procedure Name Priority Date/Time Associated Diagnosis Comments CALCIUM IONIZED Routine 11/19/2022 3:45 PM END TOUCHING MACHINE OPERATOR documented in this encounter Results * CALCIUM IONIZED (11/19/2022 3:45 PM END TOUCHING MACHINE OPERATOR) CALCIUM IONIZED 5.2 4.8 - 5.6 mg/dL 11/21/2022 10:53 AM END TOUCHING MACHINE OPERATOR [facility] Blood Collection / Unknown 11/19/2022 3:45 PM END TOUCHING MACHINE OPERATOR 11/20/2022 7:56 AM END TOUCHING MACHINE OPERATOR Narrative [facility] - 11/21/2022 10:53 AM END TOUCHING MACHINE OPERATOR Performing Organization Information: Site ID: [id number] Name: [facility] Address: [address] [address] Director: Andrew Alvarado MD us Low Amaya DO CHEMISTRY ORDERABLES Final R esult [facility] documented in this encounter Visit Diagnoses Not on filedocumented in this encounter Additional Health Concerns Infection Onset Date Last Indicated Resolved Time C Diff 11/17/2022 11/17/2022 01/16/2023 1:16 AM CDT documented as of this encounter Care Teams Emergency Dept Tech Relationship Specialty Start Date End Date Shant Ballesteros Jr., MD [address] [place] [address] PCP - General Family Practice 01/19/14 documented as of this encounter
--- OUTSIDE RECORDS SUMMARY | 2025-06-14 16:18 | XMS_ITS | Encounter Summary ---
Author Organization [facility] Address [address] [place] [address] Care Team Providers Care Director Mba Name Role Phone Favian Maldonado MD, Shant Humphreys Primary Care Provider Encounter Details Date Type Department Care Team (Late st Contact Info) Description 11/29/2022 Lab Requisition [facility] Laboratory Services [address] [place] [address] Andre Mary, MADHU 38[address] [facility] [address] [place] [address] Social History Tobacco Use Types Packs/Day Years Used Date Smoking Tobacco: Never Assessed Sex and Gender Information Value Date Recorded Sex Assigned at Not on file Legal Sex Male 9:45 AM HAND ALTERATIONS SEAMSTRESS Gender Identity Not on file Sexual Orientation Not on file documented as of this encounter Plan of Treatment Not on file documented as of this encounter Procedures Procedure Name Priority Date/Time Associated Diagnosis Comments CBC WITH DIFFERENTIAL Routine 11/29/2022 4:15 AM HAND ALTERATIONS SEAMSTRESS documented in this encounter Results * (ABNORMAL) CBC WITH DIFFERENTIAL (11/29/2022 4:15 AM HAND ALTERATIONS SEAMSTRESS) WBC 6.6 4.8 - 10.8 K/uL 11/29/2022 7:02 AM HAND ALTERATIONS SEAMSTRESS [facility] RBC 2.98(L) 4.60 - 6.20 M/uL 11/29/2022 7:02 AM HAND ALTERATIONS SEAMSTRESS [facility] HEMOGLOBIN 9.0(L) 14.0 - 18.0 g/dL 11/29/2022 7:02 AM [facility] HEMATOCRIT 29.9(L) 41.0 - 53.0 % 11/29/2022 7:02 AM [facility] MCV 100.3 84.0 - 103.0 fL 11/29/2022 7:02 AM [facility] MCH 30.2 27.0 - 34.0 pg 11/29/2022 7:02 AM [facility] MCHC 30.1 30.0 - 35.0 g/dL 11/29/2022 7:02 AM [facility] RDW 18.0(H) 11.0 - 14.5 % 11/29/2022 7:02 AM [facility] RDW-STDEV 65.1(H) 37.0 - 54.0 fL 11/29/2022 7:02 AM [facility] PLATELETS 226 140 - 440 K/uL 11/29/2022 7:02 AM [facility] MPV 10.5 8.9 - 12.8 fL 11/29/2022 7:02 AM [facility] NEUTROPHILS 67 42 - 75 % 11/29/2022 7:02 AM [facility] LYMPHOCYTES 13(L) 24 - 44 % 11/29/2022 7:02 AM [facility] MONOCYTES 13(H) 2 - 10 % 11/29/2022 7:02 AM [facility] EOSINOPHILS 6 0 - 7 % 11/29/2022 7:02 AM [facility] BASOPHILS 1 0 - 1 % 11/29/2022 7:02 AM [facility] IMMATURE GRANULOCYTES 1 0 - 2 % 11/29/2022 7:02 AM [facility] NEUTROPHIL ABSOLUTE 4.47 2.00 - 8.00 K/uL 11/29/2022 7:02 AM [facility] LYMPHOCYTE ABSOLUTE 0.88(L) 1.20 - 4.00 K/uL 11/29/2022 7:02 AM [facility] MONOCYTE ABSOLUTE 0.85(H) 0.10 - 0.60 K/uL 11/29/2022 7:02 AM HAND ALTERATIONS SEAMSTRESS [facility] EOSINOPHIL ABSOLUTE 0.37 0.00 - 0.70 K/uL 11/29/2022 7:02 AM [facility] BASOPHILS ABSOLUTE 0.04 0.00 - 0.20 K/uL 11/29/2022 7:02 AM [facility] IMMATURE GRANULOCYTES ABSOLUTE 0.03 0.00 - 0.10 K/uL 11/29/2022 7:02 AM [facility] Blood Collection / Unknown 11/29/2022 4:15 AM HAND ALTERATIONS SEAMSTRESS 11/29/2022 6:48 AM HAND ALTERATIONS SEAMSTRESS us Andre Mary MEDICATION MANAGER HEMATOLOGY ORDERABLES Fi nal Result [facility] CLIA # [id number] [address] [place] [address] documented in this encounter Visit Diagnoses Not on filedocumented in this encounter Additional Health Concerns Infection Onset Date Last Indicated Resolved Time C Diff 11/17/2022 11/17/2022 01/16/2023 1:16 AM CDT documented as of this encounter Care Teams Director Mba Relationship Specialty Start Date End Date Shant Ballesteros Jr., MD [address] [place] [address] PCP - General Family Practice 01/19/14 documented as of this encounter
--- OUTSIDE RECORDS SUMMARY | 2025-06-14 16:18 | XMS_ITS | Encounter Summary ---
Author Organization [employer] [facility] Address [address] [place] [address] Care Team Providers Care Technical Fellow Name Role Phone Favian Maldonado MD, Shant Humphreys Primary Care Provider Encounter Details Date Type Department Care Team (Late st Contact Info) Description 11/17/2022 Lab Requisition [facility] Laboratory Services [address] [place] [address] Andre Mary, MADHU 3813 [facility] [address] [place] [address] Social History Tobacco Use Types Packs/Day Years Used Date Smoking Tobacco: Never Assessed Sex and Gender Information Value Date Recorded Sex Assigned at Not on file Legal Sex Male 9:45 AM BASKETBALL ASSEMBLER Gender Identity Not on file Sexual Orientation Not on file documented as of this encounter Plan of Treatment Not on file documented as of this encounter Procedures Procedure Name Priority Date/Time Associated Diagnosis Comments CBC WITH DIFFERENTIAL Stat 11/17/2022 4:30 AM BASKETBALL ASSEMBLER TRIGLYCERIDE Stat 11/17/2022 4:30 AM BASKETBALL ASSEMBLER PHOSPHORUS Stat 11/17/2022 4:30 AM BASKETBALL ASSEMBLER MAGNESIUM LEVEL Stat 11/17/2022 4:30 AM BASKETBALL ASSEMBLER COMPREHENSIVE METABOLIC PANEL Routine 11/17/2022 4:30 AM BASKETBALL ASSEMBLER documented in this encounter Results * TRIGLYCERIDE (11/17/2022 4:30 AM BASKETBALL ASSEMBLER) TRIGLYCERIDE 103 <150 mg/dL 11/17/2022 5:51 AM BASKETBALL ASSEMBLER [facility] Blood Collection / Unknown 11/17/2022 4:30 AM BASKETBALL ASSEMBLER 11/17/2022 5:31 AM BASKETBALL ASSEMBLER Narrative [facility] - 11/17/2022 5:51 AM BASKETBALL ASSEMBLER TRIGLYCERIDES mg/dL Normal < 150 Borderline High 150 - 199 High 200 - 499 Very High >= 500 Based on AHA/NCEP Guidelines. Andre Mary RIDES SUPERVISOR CHEMISTRY ORDERABLES Fin al Result Performing Organization Address City/[facility]/ZIP Co de Phone Number [facility] CLIA # [id number] [address] [place], [place] [id number] * PHOSPHORUS (11/17/2022 4:30 AM BASKETBALL ASSEMBLER) Pathologist [facility] PHOSPHORUS 3.2 2.5 - 4.5 mg/dL 11/17/2022 5:51 AM BASKETBALL ASSEMBLER [facility] Blood Collection / Unknown 11/17/2022 4:30 AM BASKETBALL ASSEMBLER 11/17/2022 5:31 AM BASKETBALL ASSEMBLER Andre Mary RIDES SUPERVISOR CHEMISTRY ORDERABLES Fin al Result [facility] CLIA # [id number] [address] [place], [place] [address] * MAGNESIUM LEVEL (11/17/2022 4:30 AM BASKETBALL ASSEMBLER) MAGNESIUM 2.1 1.6 - 2.4 mg/dL 11/17/2022 5:51 AM BASKETBALL ASSEMBLER [facility] Blood Collection / Unknown 11/17/2022 4:30 AM BASKETBALL ASSEMBLER 11/17/2022 5:31 AM BASKETBALL ASSEMBLER us Andre Mary NP CHEMISTRY ORDERABLES Fin al Result [facility] CLBRYANT # [id number] [address] [facility] [address] [place] [address] * (ABNORMAL) CBC WITH DIFFERENTIAL (11/17/2022 4:30 AM BASKETBALL ASSEMBLER) [facility] WBC 8.8 4.8 - 10.8 K/uL 11/17/2022 5:[address] [facility] RBC 2.68(L) 4.60 - 6.20 M/uL 11/17/2022 5:[address] [facility] HEMOGLOBIN 8.0(L) 14.0 - 18.0 g/dL 11/17/2022 5:[address] [facility] HEMATOCRIT 27.6(L) 41.0 - 53.0 % 11/17/2022 5:[address] [facility] MCV 103.0 84.0 - 103.0 fL 11/17/2022 5:[address] [facility] MCH 29.9 27.0 - 34.0 pg 11/17/2022 5:[address] [facility] MCHC 29.0(L) 30.0 - 35.0 g/dL 11/17/2022 5:[address] [facility] RDW 18.1(H) 11.0 - 14.5 % 11/17/2022 5:[address] [facility] RDW-STDEV 65.9(H) 37.0 - 54.0 fL 11/17/2022 5:[address] [facility] PLATELETS 296 140 - 440 K/uL 11/17/2022 5:[address] [facility] MPV 9.6 8.9 - 12.8 fL 11/17/2022 5:[address] [facility] NEUTROPHILS 67 42 - 75 % 11/17/2022 5:[address] [facility] LYMPHOCYTES 12(L) 24 - 44 % 11/17/2022 5:[address] [facility] MONOCYTES 13(H) 2 - 10 % 11/17/2022 5:[address] [facility] EOSINOPHILS 6 0 - 7 % 11/17/2022 5:[address] [facility] BASOPHILS 1 0 - 1 % 11/17/2022 5:[address] [facility] IMMATURE GRANULOCYTES 2 0 - 2 % 11/17/2022 5:[address] [facility] NEUTROPHIL ABSOLUTE 5.91 2.00 - 8.00 K/uL 11/17/2022 5:[address] [facility] LYMPHOCYTE ABSOLUTE 1.04(L) 1.20 - 4.00 K/uL 11/17/2022 5:[address] [facility] MONOCYTE ABSOLUTE 1.10(H) 0.10 - 0.60 K/uL 11/17/2022 5:[address] [facility] EOSINOPHIL ABSOLUTE 0.56 0.00 - 0.70 K/uL 11/17/2022 5:[address] [facility] BASOPHILS ABSOLUTE 0.06 0.00 - 0.20 K/uL 11/17/2022 5:[address] [facility] IMMATURE GRANULOCYTES ABSOLUTE 0.13(H) 0.00 - 0.10 K/uL 11/17/2022 5:[address] [facility] Blood Collection / Unknown 11/17/2022 4:30 AM BASKETBALL ASSEMBLER 11/17/2022 5:30 AM [facility] us Andre Mary RIDES SUPERVISOR HEMATOLOGY ORDERABLES Fi nal Result [facility] CLIA # [id number] [address] [address] [place], [place] [id number] * (ABNORMAL) COMPREHENSIVE METABOLIC PANEL (11/17/2022 4:30 AM BASKETBALL ASSEMBLER) [facility] SODIUM 144 136 - 145 mmol/L 11/17/2022 5:[address] [facility] POTASSIUM 3.8 3.5 - 5.1 mmol/L 11/17/2022 5:[address] [facility] CHLORIDE 107 98 - 107 mmol/L 11/17/2022 5:[address] [facility] CO2 34(H) 22 - 29 mmol/L 11/17/2022 5:[address] [facility] CALCIUM 9.1 8.8 - 10.2 mg/dL 11/17/2022 5:[address] [facility] BUN 20 8 - 23 mg/dL 11/17/2022 5:[address] [facility] CREATININE 1.03 0.67 - 1.17 mg/dL 11/17/2022 5:[address] [facility] GLUCOSE 151(H) 74 - 99 mg/dL 11/17/2022 5:[address] [facility] TOTAL PROTEIN 6.5 6.4 - 8.3 g/dL 11/17/2022 5:[address] [facility] ALBUMIN 2.8(L) 3.5 - 5.2 g/dL 11/17/2022 5:[address] [facility] BILIRUBIN TOTAL 0.3 0.2 - 1.0 mg/dL 11/17/2022 5:[address] [facility] ALKALINE PHOSPHATASE 69 40 - 129 U/L 11/17/2022 5:[address] [facility] AST 12 10 - 50 U/L 11/17/2022 5:[address] [facility] ALT 10 <=50 U/L 11/17/2022 5:[address] [facility] GFR >60 >=60 mL/min/1.7 3 sq meter 11/17/2022 5:[address] [facility] Comment:eGFR calculated with 2020 CKD-EPI equation. Vegetarian diet, extremely high or low muscle mass, and may affect results. Cystatin C with Glomerular Filtration Rate is a suitable alternative for these patients. ANION GAP 3(L) 9 - 20 mmol/L 11/17/2022 5:51 AM BASKETBALL ASSEMBLER [facility] Blood Collection / Unknown 11/17/2022 4:30 AM BASKETBALL ASSEMBLER 11/17/2022 5:31 AM BASKETBALL ASSEMBLER Andre Mary RIDES SUPERVISOR CHEMISTRY ORDERABLES Fin al Result [facility] CLIA # [id number] [address] [address] [place] [address] documented in this encounter Visit Diagnoses Not on filedocumented in this encounter Additional Health Concerns Infection Onset Date Last Indicated Resolved Time C Diff 11/17/2022 11/17/2022 01/16/2023 1:16 AM CDT documented as of this encounter Care Teams Technical Fellow Relationship Specialty Start Date End Date Shant Ballesteros Jr., MD [address] [place] [address] PCP - General Family Practice 01/19/14 documented as of this encounter
--- OUTSIDE RECORDS SUMMARY | 2025-06-14 16:18 | XMS_ITS | Clinical Summary ---
Author Organization [facility] Address [address] Lara: Epic Prelude ADT JUVENAL MAHARAJ [address] Care Team Providers Care Christmas Tree Grower Name Role Phone Favian Maldonado MD, Shant [...] 01/04/20 23 Active naloxone (NARCAN) 4 mg/spray [place], Non-Aerosol EMERGENCY USE ONLY: Administer 1 spray [...] 12/21/2022 Immunizations Immunization Administration Dates Next Due (Foody)(12 YR UP) COVID-19 VACCINE - EMERGENCY USE AUTHORIZATION, MRNA, [id number](PF) 30 MCG/0.3 ML IM SUSP 11/09/2022 (PNEUMOVAX [...] on file Legal Sex Male 9:45 AM MARKETING AUTOMATION MANAGER Gender Identity Not on file Sexual [...] - PCV) 08/04/2021 08/04/2020 INFLUENZA VACCINE (#1) 2025 08/04/2020 COVID-19 Vaccine (2 - season) 05/31/202506/2023 RSV VACCINE (60+ or ) (1 - 1-dose 75+ series) 2030 Insurance [facility] MEDICARE HMO Advance Directives For more information, please contact: [phone] * Full Code (Latest Code Status on File) Date Activated Date Inactivated Comments 12/21/2022 9:43 PM 01/03/2023 3:13 PM Care Teams Christmas Tree Grower Relationship Specialty Start Date End Date Shant Ballesteros Jr., MD [address] [place] [address] PCP - General Family Practice 01/19/14
--- OUTSIDE RECORDS SUMMARY | 2025-06-14 16:18 | XMS_ITS | Encounter Summary ---
Author Organization [employer] [facility] Address [address] [place] [address] Care Team Providers Care Revenue Director Name Role Phone Favian Maldonado MD, Shant Humphreys Primary Care Provider Encounter Details Date Type Department Care Team (Late st Contact Info) Description 12/03/2022 Lab Requisition [facility] Laboratory Services [address] [place] [address] Andre Mary, MADHU [address] [facility] [address] [place] [address] Social History Tobacco Use Types Packs/Day Years Used Date Smoking Tobacco: Never Assessed Sex and Gender Information Value Date Recorded Sex Assigned at Not on file Legal Sex Male 9:45 AM RN SANE Gender Identity Not on file Sexual Orientation Not on file documented as of this encounter Plan of Treatment Not on file documented as of this encounter Procedures Procedure Name Priority Date/Time Associated Diagnosis Comments CBC WITH DIFFERENTIAL Routine 12/03/2022 2:00 AM RN SANE TRIGLYCERIDE Routine 12/03/2022 2:00 AM RN SANE PHOSPHORUS Routine 12/03/2022 2:00 AM RN SANE MAGNESIUM LEVEL Routine 12/03/2022 2:00 AM RN SANE COMPREHENSIVE METABOLIC PANEL Routine 12/03/2022 2:00 AM RN SANE documented in this encounter Results * MAGNESIUM LEVEL (12/03/2022 2:00 AM RN SANE) MAGNESIUM 1.9 1.6 - 2.4 mg/dL 12/03/2022 7:06 AM [facility] Blood Collection / Unknown 12/03/2022 2:00 AM RN SANE 12/03/2022 6:33 AM RN SANE Andre Mary VARNISH FINISHER CHEMISTRY ORDERABLES Fin al Result Performing Organization Address [facility] de Phone Number [facility] CLIA # [id number] [address] [place], [place] [address] * (ABNORMAL) TRIGLYCERIDE (12/03/2022 2:00 AM RN SANE) Pathologist [facility] TRIGLYCERIDE 163(H) <150 mg/dL 12/03/2022 7:06 AM [facility] Blood Collection / Unknown 12/03/2022 2:00 AM RN SANE 12/03/2022 6:33 AM RN SANE Narrative [facility] - 12/03/2022 7:06 AM RN SANE TRIGLYCERIDES mg/dL Normal < 150 Borderline High 150 - 199 High 200 - 499 Very High >= 500 Based on AHA/NCEP Guidelines. Andre Mary VARNISH FINISHER CHEMISTRY ORDERABLES Fin al Result Performing Organization Address [facility] de Phone Number [facility] CLIA # [id number] [address] [place], [place] [id number] * PHOSPHORUS (12/03/2022 2:00 AM RN SANE) Pathologist [facility] PHOSPHORUS 3.3 2.5 - 4.5 mg/dL 12/03/2022 7:06 AM [facility] Blood Collection / Unknown 12/03/2022 2:00 AM RN SANE 12/03/2022 6:33 AM RN SANE us Andre Mary NP CHEMISTRY ORDERABLES Fin al Result [facility] CLIA # [id number] [address] [facility] [place] [address] * (ABNORMAL) CBC WITH DIFFERENTIAL (12/03/2022 2:00 AM RN SANE) [facility] WBC 6.5 4.8 - 10.8 K/uL 12/03/2022 6:40 AM [facility] RBC 3.05(L) 4.60 - 6.20 M/uL 12/03/2022 6:40 AM [facility] HEMOGLOBIN 9.1(L) 14.0 - 18.0 g/dL 12/03/2022 6:40 AM [facility] HEMATOCRIT 30.4(L) 41.0 - 53.0 % 12/03/2022 6:40 AM [facility] MCV 99.7 84.0 - 103.0 fL 12/03/2022 6:40 AM [facility] MCH 29.8 27.0 - 34.0 pg 12/03/2022 6:40 AM [facility] MCHC 29.9(L) 30.0 - 35.0 g/dL 12/03/2022 6:40 AM [facility] RDW 17.5(H) 11.0 - 14.5 % 12/03/2022 6:40 AM [facility] RDW-STDEV 63.8(H) 37.0 - 54.0 fL 12/03/2022 6:40 AM [facility] PLATELETS 247 140 - 440 K/uL 12/03/2022 6:40 AM [facility] MPV 10.6 8.9 - 12.8 fL 12/03/2022 6:40 AM [facility] NEUTROPHILS 57 42 - 75 % 12/03/2022 6:40 AM [facility] LYMPHOCYTES 19(L) 24 - 44 % 12/03/2022 6:40 AM [facility] MONOCYTES 12(H) 2 - 10 % 12/03/2022 6:40 AM [facility] EOSINOPHILS 11(H) 0 - 7 % 12/03/2022 6:40 AM [facility] BASOPHILS 1 0 - 1 % 12/03/2022 6:40 AM [facility] IMMATURE GRANULOCYTES 1 0 - 2 % 12/03/2022 6:40 AM [facility] NEUTROPHIL ABSOLUTE 3.68 2.00 - 8.00 K/uL 12/03/2022 6:40 AM [facility] LYMPHOCYTE ABSOLUTE 1.22 1.20 - 4.00 K/uL 12/03/2022 6:40 AM [facility] MONOCYTE ABSOLUTE 0.80(H) 0.10 - 0.60 K/uL 12/03/2022 6:40 AM [facility] EOSINOPHIL ABSOLUTE 0.69 0.00 - 0.70 K/uL 12/03/2022 6:40 AM [facility] BASOPHILS ABSOLUTE 0.06 0.00 - 0.20 K/uL 12/03/2022 6:40 AM [facility] IMMATURE GRANULOCYTES ABSOLUTE 0.03 0.00 - 0.10 K/uL 12/03/2022 6:40 AM [facility] Blood Collection / Unknown 12/03/2022 2:00 AM RN SANE 12/03/2022 6:32 AM [facility] us Andre Mary VARNISH FINISHER HEMATOLOGY ORDERABLES Fi nal Result [facility] CLIA # [id number] [address] [place], [place] [id number] * (ABNORMAL) COMPREHENSIVE METABOLIC PANEL (12/03/2022 2:00 AM RN SANE) [facility] SODIUM 140 136 - 145 mmol/L 12/03/2022 7:06 AM [facility] POTASSIUM 3.5 3.5 - 5.1 mmol/L 12/03/2022 7:06 AM [facility] CHLORIDE 101 98 - 107 mmol/L 12/03/2022 7:06 AM [facility] CO2 31(H) 22 - 29 mmol/L 12/03/2022 7:06 AM [facility] CALCIUM 9.8 8.8 - 10.2 mg/dL 12/03/2022 7:06 AM [facility] BUN 28(H) 8 - 23 mg/dL 12/03/2022 7:06 AM [facility] CREATININE 0.88 0.67 - 1.17 mg/dL 12/03/2022 7:06 AM [facility] GLUCOSE 130(H) 74 - 99 mg/dL 12/03/2022 7:06 AM [facility] TOTAL PROTEIN 6.8 6.4 - 8.3 g/dL 12/03/2022 7:06 AM [facility] ALBUMIN 3.1(L) 3.5 - 5.2 g/dL 12/03/2022 7:06 AM [facility] BILIRUBIN TOTAL 0.3 0.2 - 1.0 mg/dL 12/03/2022 7:06 AM [facility] ALKALINE PHOSPHATASE 104 40 - 129 U/L 12/03/2022 7:06 AM [facility] AST 19 10 - 50 U/L 12/03/2022 7:06 AM [facility] ALT 14 <=50 U/L 12/03/2022 7:06 AM [facility] GFR >60 >=60 mL/min/1.7 3 sq meter 12/03/2022 7:06 AM [facility] Comment:eGFR calculated with 2020 CKD-EPI equation. Vegetarian diet, extremely high or low muscle mass, and may affect results. Cystatin C with Glomerular Filtration Rate is a suitable alternative for these patients. ANION GAP 8(L) 9 - 20 mmol/L 12/03/2022 7:06 AM RN SANE [facility] Blood Collection / Unknown 12/03/2022 2:00 AM RN SANE 12/03/2022 6:33 AM RN SANE us Andre Mary VARNISH FINISHER CHEMISTRY ORDERABLES Fin al Result [facility] CLIA # [id number] [facility] [address] [place] [address] documented in this encounter Visit Diagnoses Not on filedocumented in this encounter Additional Health Concerns Infection Onset Date Last Indicated Resolved Time C Diff 11/17/2022 11/17/2022 01/16/2023 1:16 AM CDT documented as of this encounter Care Teams Revenue Director Relationship Specialty Start Date End Date Shant Ballesteros Jr., MD [address] [place] [address] PCP - General Family Practice 01/19/14 documented as of this encounter
--- OUTSIDE RECORDS SUMMARY | 2025-06-14 16:18 | XMS_ITS | Encounter Summary ---
Author Organization [facility] Address [address] [place] [address] Care Team Providers Care Lunch Truck Operator Name Role Phone Favian Maldonado MD, Shant Humphreys Primary Care Provider Encounter Details Date Type Department Care Team (Late st Contact Info) Description 12/05/2022 Lab Requisition [facility] Laboratory Services [address] [place] [address] Low Amaya, DO [address] [place] [phone] Social History Tobacco Use Types Packs/Day Years Used Date Smoking Tobacco: Never Assessed Sex and Gender Information Value Date Recorded Sex Assigned at Not on file Legal Sex Male 9:45 AM MANIPULATOR OPERATOR Gender Identity Not on file Sexual Orientation Not on file documented as of this encounter Plan of Treatment Not on file documented as of this encounter Procedures Procedure Name Priority Date/Time Associated Diagnosis Comments PHOSPHORUS Routine 12/05/2022 3:30 AM MANIPULATOR OPERATOR MAGNESIUM LEVEL Routine 12/05/2022 3:30 AM MANIPULATOR OPERATOR documented in this encounter Results * MAGNESIUM LEVEL (12/05/2022 3:30 AM MANIPULATOR OPERATOR) MAGNESIUM 12/05/2022 7:00 AM MANIPULATOR OPERATOR [facility] SERVICES [facility] Comment: Contaminated specimen, called to Humble Garcia This is a corrected result. Previous result was 1.7 mg/dL on 12/05/2022 at 0553 MANIPULATOR OPERATOR Blood Collection / Unknown 12/05/2022 3:30 AM MANIPULATOR OPERATOR 12/05/2022 5:21 AM MANIPULATOR OPERATOR Narrative [facility] - 12/05/2022 7:00 AM MANIPULATOR OPERATOR To be credited Contaminated specimen Low Finley Monique DO CHEMISTRY ORDERABLES Edited Result - Final Performing Organization Address City/[facility]/ZIP Co de Phone Number [facility] CLIA # [id number] [address] [place] [address] * PHOSPHORUS (12/05/2022 3:30 AM MANIPULATOR OPERATOR) PHOSPHORUS 12/05/2022 7:02 AM MANIPULATOR OPERATOR [facility] Comment: Contaminated specimen. To be credited, called to Humble Garcia This is a corrected result. Previous result was 4.6 mg/dL on 12/05/2022 at 0553 [facility] Blood Collection / Unknown 12/05/2022 3:30 AM MANIPULATOR OPERATOR 12/05/2022 5:21 AM MANIPULATOR OPERATOR Low Finley Monique DO CHEMISTRY ORDERABLES Edited Result - Final Performing Organization Address [facility] Co de Phone Number [facility] CLIA # [id number] [address] [place] [address] documented in this encounter Visit Diagnoses Not on filedocumented in this encounter Additional Health Concerns Infection Onset Date Last Indicated Resolved Time C Diff 11/17/2022 11/17/2022 01/16/2023 1:16 AM CDT documented as of this encounter Care Teams Lunch Truck Operator Relationship Specialty Start Date End Date Shant Ballesteros Jr., MD [address] [place] [id number] PCP - General Family Practice 01/19/14 documented as of this encounter
--- OUTSIDE RECORDS SUMMARY | 2025-06-14 16:18 | XMS_ITS | Encounter Summary ---
Author Organization [employer] Address [address] [place] [address] Care Team Providers Care Paperhanger Assistant Name Role Phone Favian Maldonado MD, Shant Humphreys Primary Care Provider Encounter Details Date Type Department Care Team (Late st Contact Info) Description 12/02/2022 Lab Requisition [facility] Laboratory Services [address] [place] [address] Joelle David MD [address] [facility] [address] [place] [id number] Social History Tobacco Use Types Packs/Day Years Used Date Smoking Tobacco: Never Assessed Sex and Gender Information Value Date Recorded Sex Assigned at Not on file Legal Sex Male 9:45 AM COMPLIANCE REVIEW SPECIALIST Gender Identity Not on file Sexual Orientation Not on file documented as of this encounter Plan of Treatment Not on file documented as of this encounter Procedures Procedure Name Priority Date/Time Associated Diagnosis Comments C-REACTIVE PROTEIN Routine 12/02/2022 3: 50 AM COMPLIANCE REVIEW SPECIALIST documented in this encounter Results * (ABNORMAL) C-REACTIVE PROTEIN (12/02/2022 3:50 AM COMPLIANCE REVIEW SPECIALIST) CRP 19.3(H) 0.0 - 5.0 mg/L 12/02/2022 5:27 AM COMPLIANCE REVIEW SPECIALIST [facility] Blood Collection / Unknown 12/02/2022 3:50 AM COMPLIANCE REVIEW SPECIALIST 12/02/2022 5:13 AM COMPLIANCE REVIEW SPECIALIST Joelle David MD CHEMISTRY ORDERABLES Final Resu lt [facility] # [id number] [address] [facility] [place] [address] documented in this encounter Visit Diagnoses Not on filedocumented in this encounter Additional Health Concerns Infection Onset Date Last Indicated Resolved Time C Diff 11/17/2022 11/17/2022 01/16/2023 1:16 AM CDT documented as of this encounter Care Teams Paperhanger Assistant Relationship Specialty Start Date End Date Shant Ballesteros Jr., MD [address] [place] [address] PCP - General Family Practice 01/19/14 documented as of this encounter
--- OUTSIDE RECORDS SUMMARY | 2025-06-14 16:18 | XMS_ITS | Encounter Summary ---
Author Organization [facility] Address [address] [place] [address] Care Team Providers Care Chemical Research Technician Name Role Phone Favian Maldonado MD, Shant Humphreys Primary Care Provider Encounter Details Date Type Department Care Team (Late st Contact Info) Description 11/09/2022 Lab Requisition [facility] Laboratory Services [address] [place] [address] Soni Jeffery MD [address] [place] [address] Social History Tobacco Use Types Packs/Day Years Used Date Smoking Tobacco: Never Assessed Sex and Gender Information Value Date Recorded Sex Assigned at Not on file Legal Sex Male 9:45 AM SENIOR STATISTICIAN Gender Identity Not on file Sexual Orientation Not on file documented as of this encounter Plan of Treatment Not on file documented as of this encounter Procedures Procedure Name Priority Date/Time Associated Diagnosis Comments CBC WITH DIFFERENTIAL Routine 11/09/2022 6:15 PM SENIOR STATISTICIAN BASIC METABOLIC PANEL Routine 11/09/2022 6:15 PM SENIOR STATISTICIAN documented in this encounter Results * (ABNORMAL) CBC WITH DIFFERENTIAL (11/09/2022 6:15 PM SENIOR STATISTICIAN) [facility] WBC 7.2 4.8 - 10.8 K/uL 11/09/2022 7:07 PM SENIOR STATISTICIAN [facility] SERVICES [facility] RBC 2.78(L) 4.60 - 6.20 M/uL 11/09/2022 7:07 PM [facility] HEMOGLOBIN 8.0(L) 14.0 - 18.0 g/dL 11/09/2022 7:07 PM [facility] HEMATOCRIT 27.5(L) 41.0 - 53.0 % 11/09/2022 7:07 PM [facility] MCV 98.9 84.0 - 103.0 fL 11/09/2022 7:07 PM [facility] MCH 28.8 27.0 - 34.0 pg 11/09/2022 7:07 PM [facility] MCHC 29.1(L) 30.0 - 35.0 g/dL 11/09/2022 7:07 PM [facility] RDW 15.9(H) 11.0 - 14.5 % 11/09/2022 7:07 PM [facility] RDW-STDEV 57.7(H) 37.0 - 54.0 fL 11/09/2022 7:07 PM [facility] PLATELETS 250 140 - 440 K/uL 11/09/2022 7:07 PM [facility] MPV 10.9 8.9 - 12.8 fL 11/09/2022 7:07 PM [facility] NEUTROPHILS 65 42 - 75 % 11/09/2022 7:07 PM [facility] LYMPHOCYTES 11(L) 24 - 44 % 11/09/2022 7:07 PM [facility] MONOCYTES 17(H) 2 - 10 % 11/09/2022 7:07 PM [facility] EOSINOPHILS 6 0 - 7 % 11/09/2022 7:07 PM [facility] BASOPHILS 1 0 - 1 % 11/09/2022 7:07 PM [facility] IMMATURE GRANULOCYTES 1 0 - 2 % 11/09/2022 7:07 PM [facility] NEUTROPHIL ABSOLUTE 4.64 2.00 - 8.00 K/uL 11/09/2022 7:07 PM [facility] LYMPHOCYTE ABSOLUTE 0.79(L) 1.20 - 4.00 K/uL 11/09/2022 7:07 PM [facility] MONOCYTE ABSOLUTE 1.19(H) 0.10 - 0.60 K/uL 11/09/2022 7:07 PM [facility] EOSINOPHIL ABSOLUTE 0.42 0.00 - 0.70 K/uL 11/09/2022 7:07 PM [facility] BASOPHILS ABSOLUTE 0.04 0.00 - 0.20 K/uL 11/09/2022 7:07 PM [facility] IMMATURE GRANULOCYTES ABSOLUTE 0.08 0.00 - 0.10 K/uL 11/09/2022 7:07 PM [facility] Blood Collection / Unknown 11/09/2022 6:15 PM SENIOR STATISTICIAN 11/09/2022 7:03 PM [facility] Soni Jeffery MD HEMATOLOGY ORDERABLES Final Resu lt [facility] CLIA # [id number] [facility] [address] * (ABNORMAL) BASIC METABOLIC PANEL (11/09/2022 6:15 PM SENIOR STATISTICIAN) SODIUM 140 136 - 145 mmol/L 11/09/2022 7:39 PM [facility] POTASSIUM 4.8 3.5 - 5.1 mmol/L 11/09/2022 7:39 PM [facility] CHLORIDE 106 98 - 107 mmol/L 11/09/2022 7:39 PM [facility] CO2 26 22 - 29 mmol/L 11/09/2022 7:39 PM [facility] CALCIUM 8.6(L) 8.8 - 10.2 mg/dL 11/09/2022 7:39 PM [facility] BUN 22 8 - 23 mg/dL 11/09/2022 7:39 PM [facility] CREATININE 1.15 0.67 - 1.17 mg/dL 11/09/2022 7:39 PM [facility] GLUCOSE 121(H) 74 - 99 mg/dL 11/09/2022 7:39 [address] [facility] GFR >60 >=60 mL/min/1.7 3 sq meter 11/09/2022 7:39 PM [facility] Comment:eGFR calculated with 2020 CKD-EPI equation. Vegetarian diet, extremely high or low muscle mass, and may affect results. Cystatin C with Glomerular Filtration Rate is a suitable alternative for these patients. ANION GAP 8(L) 9 - 20 mmol/L 11/09/2022 7:39 PM [facility] Blood Collection / Unknown 11/09/2022 6:15 PM SENIOR STATISTICIAN 11/09/2022 7:03 PM SENIOR STATISTICIAN Soni Jeffery MD CHEMISTRY ORDERABLES Final Resul t Performing Organization Address City/State/[facility] Co de Phone Number [facility] CLIA # [id number] [facility] [address] documented in this encounter Visit Diagnoses Not on filedocumented in this encounter Additional Health Concerns Infection Onset Date Last Indicated Resolved Time C Diff 11/17/2022 11/17/2022 01/16/2023 1:16 AM CDT documented as of this encounter Care Teams Chemical Research Technician Relationship Specialty Start Date End Date Shant Ballesteros Jr., MD [address] [place] [address] PCP - General Family Practice 01/19/14 documented as of this encounter
--- OUTSIDE RECORDS SUMMARY | 2025-06-14 16:18 | XMS_ITS | Encounter Summary ---
Author Organization [employer] Address [address] [place] [address] Care Team Providers Care Enterprise Sales Person Name Role Phone Favian Maldonado MD, Shant Humphreys Primary Care Provider Encounter Details Date Type Department Care Team (Late st Contact Info) Description 11/28/2022 Lab Requisition [facility] Laboratory Services [address] [place] [address] [place] [address] Low Amaya, DO [address] [place] [address] Social History Tobacco Use Types Packs/Day Years Used Date Smoking Tobacco: Never Assessed Sex and Gender Information Value Date Recorded Sex Assigned at Not on file Legal Sex Male 9:45 AM NIGHT PATROL INSPECTOR Gender Identity Not on file Sexual Orientation Not on file documented as of this encounter Plan of Treatment Not on file documented as of this encounter Procedures Procedure Name Priority Date/Time Associated Diagnosis Comments PHOSPHORUS Routine 11/28/2022 7:48 AM NIGHT PATROL INSPECTOR MAGNESIUM LEVEL Routine 11/28/2022 7:48 AM NIGHT PATROL INSPECTOR COMPREHENSIVE METABOLIC PANEL Routine 11/28/2022 7:48 AM NIGHT PATROL INSPECTOR documented in this encounter Results * MAGNESIUM LEVEL (11/28/2022 7:48 AM NIGHT PATROL INSPECTOR) MAGNESIUM 2.0 1.6 - 2.4 mg/dL 11/28/2022 8:53 AM NIGHT PATROL INSPECTOR [facility] Blood Collection / Unknown 11/28/2022 7:48 AM NIGHT PATROL INSPECTOR 11/28/2022 8:34 AM NIGHT PATROL INSPECTOR Low Amaya DO CHEMISTRY ORDERABLES Final R esult Performing Organization Address [facility]/ZIP Co de Phone Number [facility] CLIA # [id number] [address] [address] * PHOSPHORUS (11/28/2022 7:48 AM NIGHT PATROL INSPECTOR) PHOSPHORUS 3.0 2.5 - 4.5 mg/dL 11/28/2022 8:53 AM [facility] Blood Collection / Unknown 11/28/2022 7:48 AM NIGHT PATROL INSPECTOR 11/28/2022 8:34 AM NIGHT PATROL INSPECTOR Low Amaya DO CHEMISTRY ORDERABLES Final R esult Performing Organization Address [facility]/ZIP Co de Phone Number [facility] CLIA # [id number] [address] [address] * (ABNORMAL) COMPREHENSIVE METABOLIC PANEL (11/28/2022 7:48 AM NIGHT PATROL INSPECTOR) SODIUM 143 136 - 145 mmol/L 11/28/2022 8:53 AM [facility] POTASSIUM 4.0 3.5 - 5.1 mmol/L 11/28/2022 8:53 AM [facility] CHLORIDE 103 98 - 107 mmol/L 11/28/2022 8:53 AM [facility] CO2 33(H) 22 - 29 mmol/L 11/28/2022 8:53 AM [facility] CALCIUM 9.4 8.8 - 10.2 mg/dL 11/28/2022 8:53 AM [facility] BUN 27(H) 8 - 23 mg/dL 11/28/2022 8:53 AM [facility] CREATININE 0.96 0.67 - 1.17 mg/dL 11/28/2022 8:53 AM [facility] GLUCOSE 112(H) 74 - 99 mg/dL 11/28/2022 8:53 AM [facility] TOTAL PROTEIN 7.0 6.4 - 8.3 g/dL 11/28/2022 8:53 AM [facility] ALBUMIN 3.1(L) 3.5 - 5.2 g/dL 11/28/2022 8:53 AM [facility] BILIRUBIN TOTAL 0.3 0.2 - 1.0 mg/dL 11/28/2022 8:53 AM [facility] ALKALINE PHOSPHATASE 97 40 - 129 U/L 11/28/2022 8:53 AM [facility] AST 14 10 - 50 U/L 11/28/2022 8:53 AM [facility] ALT 11 <=50 U/L 11/28/2022 8:53 AM [facility] GFR >60 >=60 mL/min/1.7 3 sq meter 11/28/2022 8:53 AM [facility] Comment:eGFR calculated with 2020 CKD-EPI equation. Vegetarian diet, extremely high or low muscle mass, and may affect results. Cystatin C with Glomerular Filtration Rate is a suitable alternative for these patients. ANION GAP 7(L) 9 - 20 mmol/L 11/28/2022 8:53 AM [facility] Blood Collection / Unknown 11/28/2022 7:48 AM NIGHT PATROL INSPECTOR 11/28/2022 8:34 AM NIGHT PATROL INSPECTOR us Low Amaya DO CHEMISTRY ORDERABLES Final R esult [facility] CLIA # [id number] [facility] [address] documented in this encounter Visit Diagnoses Not on filedocumented in this encounter Additional Health Concerns Infection Onset Date Last Indicated Resolved Time C Diff 11/17/2022 11/17/2022 01/16/2023 1:16 AM CDT documented as of this encounter Care Teams Enterprise Sales Person Relationship Specialty Start Date End Date Shant Ballesteros Jr., MD [address] [place] [address] PCP - General Family Practice 01/19/14 documented as of this encounter
--- OUTSIDE RECORDS SUMMARY | 2025-06-14 16:18 | XMS_ITS | Encounter Summary ---
Author Organization [facility] Address [address] [place] [address] Care Team Providers Care Live Ammunition Inspector Name Role Phone Favian Maldonado MD, Shant Humphreys Primary Care Provider Encounter Details Date Type Department Care Team (Late st Contact Info) Description 11/17/2022 Lab Requisition [facility] Laboratory Services [address] [place] [address] [place] [address] Cary Javier PA-C [address] [place] [address] Social History Tobacco Use Types Packs/Day Years Used Date Smoking Tobacco: Never Assessed Sex and Gender Information Value Date Recorded Sex Assigned at Not on file Legal Sex Male 9:45 AM BUSINESS PLANNING MANAGER Gender Identity Not on file Sexual Orientation Not on file documented as of this encounter Plan of Treatment Not on file documented as of this encounter Procedures Procedure Name Priority Date/Time Associated Diagnosis Comments C. DIFFICILE DETECTION Routine 11/17/2022 10:45 AM BUSINESS PLANNING MANAGER documented in this encounter Results * (ABNORMAL) C. DIFFICILE DETECTION (11/17/2022 10:45 AM BUSINESS PLANNING MANAGER) TOXIGENIC C DIFFICILE DETECTED( A) Not Detected 11/17/2022 1:45 PM BUSINESS PLANNING MANAGER [facility] babberly [facility] Stool STOOL SPECIMEN / Unknown Collection / Unknown 11/17/2022 10:45 AM BUSINESS PLANNING MANAGER 11/17/2022 12:20 PM BUSINESS PLANNING MANAGER Narrative [facility] babberly [facility] - 11/17/2022 1:45 PM BUSINESS PLANNING MANAGER Cdiff detected called to Cait Feng [facility] by CATRACHO REINA on 11/17/2022 at [...] ORDERAB LES Final Result [facility] babberly [facility] CLIA # [id number] [facility] [address] documented in this encounter Visit Diagnoses Not on filedocumented in this encounter Additional Health Concerns Infection Onset Date Last Indicated Resolved Time C Diff 11/17/2022 11/17/2022 01/16/2023 1:16 AM CDT documented as of this encounter Care Teams Live Ammunition Inspector Relationship Specialty Start Date End Date Shant Ballesteros Jr., MD [address] [place] [address] PCP - General Family Practice 01/19/14 documented as of this encounter
[2025-06-14 16:45] VITALS: BP 101/64; PULSE 52; RESP 18; O2SAT 98
[2025-06-14 16:52] LABS: Troponin 5 2HR 25.69 ng/L (0-15)
[2025-06-14 16:54] LABS: Troponin 5 2HR Delta -0.31 ABS# (0-10)
--- NOTE | 2025-06-14 17:10 | ECG_ITS ---
[facility] Test Date: 2025-06-14 Pat Name: Charan Voss Department: Room: Gender: Male Inpatient Pharmacist: : 1955 Requested By: Demian Brown Order Number: [id number] Richard MD: Raiza Orourke M.D. Measurements Intervals [place] Rate: 53 P: 0 [place]: 0 QRS: 9 QRSD: 121 T: 28 QT: 449 QTc: 425 Interpretive Statements ATRIAL FIBRILLATION WITH SLOW VENTRICULAR RESPONSE SEPTAL MYOCARDIAL INFARCTION , OF INDETERMINATE AGE [40+ ms Q WAVE IN V1/V2] Compared to ECG 06/14/2025 15:08:36 No significant changes Electronically Signed On 06-15-2025 18:10:08 CDT by Raiza Orourke M.D. [email or web address]
[2025-06-14 18:45] VITALS: BP 119/72; PULSE 51; RESP 14; O2SAT 93
== END 2025-06-14 18:45 | disposition home or self-care (01) ==
PROVIDERS: Emergency Provider Student in an Organized Health Care Education/Training Program; PCP Family Medicine
DX: R07.9 Chest pain, unspecified (principal); Z79.82 Long term (current) use of aspirin; Z87.891 Personal history of nicotine dependence; I10 Essential (primary) hypertension; Z85.05 Personal history of malignant neoplasm of liver; Z85.038 Personal history of other malignant neoplasm of large intestine; E78.5 Hyperlipidemia, unspecified
CPT/HCPCS: 36415; 71045; 80053; 80162; 83880; 84484; 85025; 85610; 85730; 93005; 96360; 99285; J7030; J9999

== ENCOUNTER → 2025-06-16 10:38 | Outpatient (BNVA) | payer MEDICARE, SELFPAY | PROVIDERS: PCP Family Medicine; Visit Provider Dermatology | DX: L72.0 Epidermal cyst (principal); R20.8 Other disturbances of skin sensation | CPT/HCPCS: 99214 ==

== ENCOUNTER 2025-06-19 11:20 | Emergency (ER) | payer MEDICARE, SELFPAY ==
--- OUTSIDE RECORDS SUMMARY | 2024-10-23 06:20 | XMS_ITS ---
Author Organization [facility] Address [address] [place] [address] Care Team Providers Care Supervisor Shipping Name Role Phone Kady Floyd Primary Care Provider [phone] Bala Wilson Unavailable [phone] KADY FLOYD Unavailable Unavailable Tonya Woodruff Unavailable REASON FOR VISIT 6M F/U W/CBC/ESTRADIOL/CMP/TESTOSTERONE/KUB Encounters Encounter Location Date Provider Diagnosis [facility] [address] [place] [address], [place] [address] 10/23/2024 Tonya Woodruff Plan Of Treatment No Information Progress Notes * Charan KAMARA TDOB:1955 (70 yo M)Acc No.[id number]:10/23/2024 Progress Notes Patient: Charan Robison Saira Provider: JIMENA Ramos :1955 A ge:69 Y S ex:Male Date:10/23/2024 Address:[address] [place], [place] [id number] Pcp:Kady Floyd Subjective: * Chief Complaints: * 6 M F/U W/CBC/ESTRADIOL/CMP/TESTOSTERONE/KUB Billing Information: * Procedure Codes: * Electronic signature of JIMENA Romeo on 06/19/2025 at 11:28 AM CDT Sign off status: Pending * Provider: JIMENA Ramos Date: 0 10/23/2024 Generated for Man palacios/Faxing/eTransmitting on: 0 06/19/2025 11:28 AM CDT
--- OUTSIDE RECORDS SUMMARY | 2024-10-27 06:20 | XMS_ITS ---
Author Organization [facility] Address [address] [place] [address] Care Team Providers Care Tire Vulcanizer Name Role Phone Kady Floyd Primary Care Provider [phone] Bala Wilson Unavailable [phone] KADY FLOYD Unavailable Unavailable Tonya Woodruff Unavailable REASON FOR VISIT 6M F/U W/CBC/ESTRADIOL/CMP/TESTOSTERONE/KUB Encounters Encounter Location Date Provider Diagnosis [facility] [address] [place] [address], [place] [address] 10/27/2024 Tonya Woodruff Plan Of Treatment No Information Progress Notes * Charan KAMARA TDOB:1955 (70 yo M)Acc No.[id number]:10/27/2024 Progress Notes Patient: Naima durham Charan Chávez Provider: JIMENA Ramos :1955 A ge:69 Y S ex:Male Date:10/27/2024 Address:[address] [place], [place] [phone] Pcp:Kady Floyd Subjective: * Chief Complaints: * 6 M F/U W/CBC/ESTRADIOL/CMP/TESTOSTERONE/KUB Billing Information: * Procedure Codes: * Electronic signature of JIMENA Romeo on 06/19/2025 at 11:29 AM CDT Sign off status: Pending * Provider: JIMENA Ramos Date: 0 10/27/2024 Generated for Man palacios/Faxing/eTransmitting on: 0 06/19/2025 11:29 AM CDT
--- OUTSIDE RECORDS SUMMARY | 2025-05-05 09:00 | XMS_ITS ---
Author Organization [facility] Address [address] [place] [address] Care Team Providers Care Front Edger Name Role Phone Kady Floyd Primary Care Provider [phone] Bala Wilson Unavailable [phone] KADY FLOYD Unavailable Unavailable Tonya Woodruff Unavailable [phone] REASON FOR VISIT 6m f/u w cbc,cmp, testosterone, estradiol , psa Encounters Encounter Location Date Provider Diagnosis [facility] [address] [place] [address] [address] [place] [address] 05/05/2025 Tonya Woodruff Testicular hypofunction E29.1 ; Low libido R68.82 and Fatigue R53.83 Assessments Encounter Date Diagnosis (ICD Code) Assessment Notes Treatment Notes Treatment Clinical Notes Section Notes 05/05/2025 Testicular hypofunction (ICD-10 - E29.1) 05/05/2025 Low libido (ICD-10 - R68.82) 05/05/2025 Fatigue (ICD-10 - R53.83) Plan Of Treatment No Information Progress Notes * Charan KAMARA TDOB:1955 (70 yo M)Acc No.[id number]:05/05/2025 Progress Notes Patient: Charan Robison Provider: JIMENA Ramos :1955 A ge:70 Y S ex:Male Date:05/05/2025 Address:[address] [place], [place] [id number] Pcp:Kady Floyd Subjective: * Chief Complaints: * [...] 05/05/2025 Generated for Man Ho/Flaquito on: 0 06/19/2025 11:29 AM CDT
[2025-06-19] VITALS (19 sets, daily range): BP systolic 97–158; BP diastolic 53–94; PULSE 61–73; RESP 10–25; TEMP 36.6; O2SAT 94–98; BMI 29.2
--- OUTSIDE RECORDS SUMMARY | 2025-06-19 11:28 | XMS_ITS | Encounter Summary ---
Author Organization [facility] Address [address] [place] [address] Care Team Providers Care Manager Medical Writing Name Role Phone Favian Maldonado MD, Shant Humphreys Primary Care Provider Encounter Details Date Type Department Care Team (Late st Contact Info) Description 12/20/2022 Lab Requisition [facility] Laboratory Services [address] [place] [address] [place] [address] Deborah Aguilar MD [address] [place] [address] Social History Tobacco Use Types [...] on file Legal Sex Male 9:45 AM FUEL OPERATOR Gender Identity Not on file Sexual [...] - 145 mmol/L 12/20/2022 6:20 AM CDT [facility] POTASSIUM 5.4(H) 3.5 - 5.1 mmol/L 12/20/2022 6:20 AM CDT [facility] CHLORIDE 97(L) 98 - 107 mmol/L 12/20/2022 6:20 AM CDT [facility] CO2 26 22 - 29 mmol/L 12/20/2022 6:20 AM T [facility] CALCIUM 10.2 8.8 - 10.2 mg/dL 12/20/2022 6:20 AM T [facility] BUN 42(H) 8 - 23 mg/dL 12/20/2022 6:20 AM T [facility] CREATININE 1.10 0.67 - 1.17 mg/dL 12/20/2022 6:20 AM T [facility] GLUCOSE 120(H) 74 - 99 mg/dL 12/20/2022 6:20 AM T [facility] TOTAL PROTEIN 7.4 6.4 - 8.3 g/dL 12/20/2022 6:20 AM T [facility] ALBUMIN 3.6 3.5 - 5.2 g/dL 12/20/2022 6:20 AM T [facility] BILIRUBIN TOTAL 0.2 0.2 - 1.0 mg/dL 12/20/2022 6:20 AM T [facility] ALKALINE PHOSPHATASE 103 40 - 129 U/L 12/20/2022 6:20 AM CDT [facility] AST 27 10 - 50 U/L 12/20/2022 6:20 AM T [facility] ALT 34 <=50 U/L 12/20/2022 6:20 AM T [facility] GFR >60 >=60 mL/min/1.7 3 sq meter 12/20/2022 6:20 AM T [facility] Comment:eGFR calculated with 2020 CKD-EPI equation. Vegetarian diet, extremely high or low muscle mass, and may affect results. Cystatin C with Glomerular Filtration Rate is a suitable alternative for these patients. ANION GAP 11 9 - 20 mmol/L 12/20/2022 6:20 AM T [facility] Blood Collection / Unknown 12/20/2022 1:20 AM CDT 12/20/2022 6:05 AM CDT us Deborah Aguilar MD CHEMISTRY ORDERABLES Final Resu lt [facility] CLIA # [id number] [address] [place] [address] * (ABNORMAL) CBC WITH DIFFERENTIAL (12/20/2022 1:20 AM CDT) WBC 7.9 4.8 - 10.8 K/uL 12/20/2022 6:09 AM [facility] RBC 3.74(L) 4.60 - 6.20 M/uL 12/20/2022 6:09 AM [facility] HEMOGLOBIN 11.4(L) 14.0 - 18.0 g/dL 12/20/2022 6:09 AM [facility] HEMATOCRIT 35.9(L) 41.0 - 53.0 % 12/20/2022 6:09 AM [facility] MCV 96.0 84.0 - 103.0 fL 12/20/2022 6:09 AM [facility] MCH 30.5 27.0 - 34.0 pg 12/20/2022 6:09 AM [facility] MCHC 31.8 30.0 - 35.0 g/dL 12/20/2022 6:09 AM [facility] [employer] [facility] RDW 15.5(H) 11.0 - 14.5 % 12/20/2022 6:09 AM [facility] [employer] [facility] RDW-STDEV 55.0(H) 37.0 - 54.0 fL 12/20/2022 6:09 AM [facility] [employer] [facility] PLATELETS 279 140 - 440 K/uL 12/20/2022 6:09 AM [facility] [employer] [facility] MPV 10.5 8.9 - 12.8 fL 12/20/2022 6:09 AM [facility] [employer] [facility] NEUTROPHILS 54 42 - 75 % 12/20/2022 6:09 AM [facility] [employer] [facility] LYMPHOCYTES 22(L) 24 - 44 % 12/20/2022 6:09 AM [facility] [employer] [facility] MONOCYTES 13(H) 2 - 10 % 12/20/2022 6:09 AM [facility] [employer] [facility] EOSINOPHILS 10(H) 0 - 7 % 12/20/2022 6:09 AM [facility] [employer] [facility] BASOPHILS 1 0 - 1 % 12/20/2022 6:09 AM [facility] IMMATURE GRANULOCYTES 1 0 - 2 % 12/20/2022 6:09 AM [facility] [employer] [facility] NEUTROPHIL ABSOLUTE 4.27 2.00 - 8.00 K/uL 12/20/2022 6:09 AM [facility] LYMPHOCYTE ABSOLUTE 1.72 1.20 - 4.00 K/uL 12/20/2022 6:09 AM [facility] [employer] [facility] MONOCYTE ABSOLUTE 0.99(H) 0.10 - 0.60 K/uL 12/20/2022 6:09 AM [facility] EOSINOPHIL ABSOLUTE 0.76(H) 0.00 - 0.70 K/uL 12/20/2022 6:09 AM [facility] [employer] [facility] BASOPHILS ABSOLUTE 0.06 0.00 - 0.20 K/uL 12/20/2022 6:09 AM [facility] [employer] [facility] IMMATURE GRANULOCYTES ABSOLUTE 0.05 0.00 - 0.10 K/uL 12/20/2022 6:09 AM CDT [facility] [employer] [facility] Blood Collection / Unknown 12/20/2022 1:20 AM CDT 12/20/2022 6:05 AM CDT us Deborah Aguilar MD HEMATOLOGY ORDERABLES Final Res ult [facility] [employer] [facility] CLIA # [id number] [facility] [address] documented in this encounter Visit Diagnoses Not on filedocumented in this encounter Additional Health Concerns Infection Onset Date Last Indicated Resolved Time C Diff 11/17/2022 11/17/2022 01/16/2023 1:16 AM CDT documented as of this encounter Care Teams Manager Medical Writing Relationship Specialty Start Date End Date Shant Ballesteros Jr., MD [address] [place] [address] PCP - General Family Practice 01/19/14 documented as of this encounter
--- OUTSIDE RECORDS SUMMARY | 2025-06-19 11:28 | XMS_ITS | Encounter Summary ---
Author Organization [facility] Address [address] [place] [address] Care Team Providers Care Branch Office Manager Name Role Phone Favian Maldonado MD, Shant Humphreys Primary Care Provider Reason for Referral * Outpatient Services (Routine) - Closed Specialty Diagnoses / Procedures Referred By Delfin jerome Referred To Contact Diagnoses Other nonspecific findings on examination of blood(790.99) Procedures MRI BRAIN W WO CONTRAST Shant Ballesteros Jr., MD [address] [place] [address] Phone: tel: [facility] [place] CALL TO MAKE APPOINTMENT ONLY [address] [place] [address] Phone: tel: fax: Referral ID Status Reason Start Date Expiration Date V isits Requested Visits Authorized [id number] Closed [facility] TO SCHEDULE ([facility] 01/18/2014 02/18/2015 1 1 * Outpatient Services (Routine) - Closed Specialty Diagnoses / Procedures Referred By Delfin t Referred To Contact Diagnoses Other nonspecific findings on examination of blood(790.99) Procedures MRA VENOUS HEAD WO CONTRAST Shant Ballesteros Jr., MD [address] [place] [address] Phone: tel: fax: [employer] Pre-Registration [place] CALL TO MAKE APPOINTMENT ONLY [address] [place] [address] Phone: tel: fax: Referral ID Status Reason Start Date Expiration Date V isits Requested Visits Authorized [id number] Closed F [facility] TO SCHEDULE ([facility]) 01/18/2014 02/18/2015 1 1 Encounter Details Date Type Department Care Team (Late st Contact Info) Description 01/18/2014 Ancillary Orders [facility] Pre-Registration [place] CALL TO MAKE APPOINTMENT ONLY [address] [facility] [address] Shant Ballesteros Jr., MD [address] [place] [address] Other nonspecific findings on examination [...] No significant abnormality. Tripp - uploaded from [employer]- Narrative Procedure Note Philippe Mendiola MD - [...] No significant abnormality. Tripp - uploaded from [employer]- us Shant Ballesteros Jr., MD MR ORDERABLES [...] Impression: Unremarkable exam. CHRIS/nikki - uploaded from [employer] - Narrative Procedure Note Philippe Mendiola MD [...] Impression: Unremarkable exam. MWKleber/[email or web address] - uploaded from [employer] - us Shant Ballesteros Jr., MD MR [...] blood documented in this encounter Care Teams Branch Office Manager Relationship Specialty Start Date End Date Shant Ballesteros Jr., MD [address] [place] [address] PCP - General Family Practice 01/19/14 documented as of this encounter
--- OUTSIDE RECORDS SUMMARY | 2025-06-19 11:28 | XMS_ITS | Encounter Summary ---
Author Organization [employer] Address 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0 - 14.5 % 12/13/2022 5:36 AM [facility] RDW-STDEV 58.9(H) 37.0 - 54.0 fL 12/13/2022 5:36 AM [facility] PLATELETS 262 140 - 440 K/uL 12/13/2022 5:36 AM [facility] MPV 10.9 8.9 - 12.8 fL 12/13/2022 5:36 AM [facility] NEUTROPHILS 54 42 - 75 % 12/13/2022 5:36 AM [facility] LYMPHOCYTES 23(L) 24 - 44 % 12/13/2022 5:36 AM [facility] MONOCYTES 14(H) 2 - 10 % 12/13/2022 5:36 AM [facility] EOSINOPHILS 8(H) 0 - 7 % 12/13/2022 5:36 AM [facility] BASOPHILS 1 0 - 1 % 12/13/2022 5:36 AM [facility] IMMATURE GRANULOCYTES 1 0 - 2 % 12/13/2022 5:36 AM [facility] NEUTROPHIL ABSOLUTE 3.23 2.00 - 8.00 K/uL 12/13/2022 5:36 AM [facility] LYMPHOCYTE ABSOLUTE 1.39 1.20 - 4.00 K/uL 12/13/2022 5:36 AM CDT [facility] MONOCYTE ABSOLUTE 0.81(H) 0.10 - 0.60 K/uL 12/13/2022 5:36 AM CDT [facility] EOSINOPHIL ABSOLUTE 0.50 0.00 - 0.70 K/uL 12/13/2022 5:36 AM CDT [facility] BASOPHILS ABSOLUTE 0.04 0.00 - 0.20 K/uL 12/13/2022 5:36 AM CDT [facility] IMMATURE GRANULOCYTES ABSOLUTE 0.03 0.00 - 0.10 K/uL 12/13/2022 5:36 AM CDT [facility] Blood Collection / Unknown 12/13/2022 4:30 AM CDT 12/13/2022 5:28 AM CDT us Esther Sarmiento MD HEMATOLOGY ORDERABLES Final Resu lt [facility] CLIA # [id number] [address] [place] [address] * (ABNORMAL) TESTOSTERONE FREE AND TOTAL (12/13/2022 4:30 AM CDT) [facility] TESTOSTERONE 28(L) 250 - 1100 ng/dL 12/16/2022 11:31 AM CDT [facility] Comment: Men with clinically significant hypogonadal symptoms and testosterone values repeatedly in the range of the 200-300 ng/dL or less, may benefit from testosterone treatment after adequate risk and benefits counseling. For additional information, please refer to https://education.Zoutons/faq/UQW638 (This link is being provided for informational/educational purposes only.) (Note) This test was developed and its analytical performance characteristics have been determined by [facility]. It has not been cleared or approved by the FDA. This assay has been validated pursuant to the CLIA regulations and is used for clinical purposes. TESTOSTERONE FREE 4.3(L) 35.0 - 155.0 pg/mL 12/16/2022 11:31 AM CDT [facility] Comment: (Note) This test was developed and its analytical performance characteristics have been determined by [facility]. It has not been cleared or approved by the FDA. This assay has been validated pursuant to the CLIA regulations and is used for clinical purposes. [facility] [address] [place] [address],[address] [place] [id number] Manuel Tirado MD Blood Collection / Unknown 12/13/2022 4:30 AM CDT 12/13/2022 7:43 AM CDT Narrative [facility] - 12/16/2022 11:31 AM CDT Performing Organization Information: Site ID: [id number] Name: [facility] Address: [address] [place] [address], [address] [place] [id number] Director: Manuel Tirado MD Esther Sarmiento MD CHEMISTRY ORDERABLES Final Resul t [facility] documented in this encounter Visit Diagnoses Not on filedocumented in this encounter Additional Health Concerns Infection Onset Date Last Indicated Resolved Time C Diff 11/17/2022 11/17/2022 01/16/2023 1:16 AM CDT documented as of this encounter Care Teams Integrated Circuit Ic Layout Designer Relationship Specialty Start Date End Date Shant Ballesteros Jr., MD [address] [place] [address] PCP - General Family Practice 01/19/14 documented as of this encounter
--- OUTSIDE RECORDS SUMMARY | 2025-06-19 11:28 | XMS_ITS | Encounter Summary ---
Author Organization [facility] Address 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 WBC 7.8 4.8 - 10.8 K/uL 12/17/2022 6:20 AM T [facility] RBC 3.85(L) 4.60 - 6.20 M/uL 12/17/2022 6:20 AM T [facility] HEMOGLOBIN 11.5(L) 14.0 - 18.0 g/dL 12/17/2022 6:20 AM T [facility] HEMATOCRIT 36.6(L) 41.0 - 53.0 % 12/17/2022 6:20 AM T [facility] MCV 95.1 84.0 - 103.0 fL 12/17/2022 6:20 AM [facility] MCH 29.9 27.0 - 34.0 pg 12/17/2022 6:20 AM [facility] MCHC 31.4 30.0 - 35.0 g/dL 12/17/2022 6:20 AM [facility] RDW 15.6(H) 11.0 - 14.5 % 12/17/2022 6:20 AM [facility] RDW-STDEV 54.4(H) 37.0 - 54.0 fL 12/17/2022 6:20 AM [facility] PLATELETS 282 140 - 440 K/uL 12/17/2022 6:20 AM [facility] MPV 10.7 8.9 - 12.8 fL 12/17/2022 6:20 AM [facility] NEUTROPHILS 58 42 - 75 % 12/17/2022 6:20 AM [facility] LYMPHOCYTES 22(L) 24 - 44 % 12/17/2022 6:20 AM [facility] MONOCYTES 12(H) 2 - 10 % 12/17/2022 6:20 AM [facility] EOSINOPHILS 8(H) 0 - 7 % 12/17/2022 6:20 AM [facility] BASOPHILS 1 0 - 1 % 12/17/2022 6:20 AM CDT [facility] IMMATURE GRANULOCYTES 1 0 - 2 % 12/17/2022 6:20 AM CDT [facility] NEUTROPHIL ABSOLUTE 4.48 2.00 - 8.00 K/uL 12/17/2022 6:20 AM CDT [facility] LYMPHOCYTE ABSOLUTE 1.67 1.20 - 4.00 K/uL 12/17/2022 6:20 AM CDT [facility] MONOCYTE ABSOLUTE 0.90(H) 0.10 - 0.60 K/uL 12/17/2022 6:20 AM CDT [facility] EOSINOPHIL ABSOLUTE 0.61 0.00 - 0.70 K/uL 12/17/2022 6:20 AM CDT [facility] BASOPHILS ABSOLUTE 0.06 0.00 - 0.20 K/uL 12/17/2022 6:20 AM CDT [facility] IMMATURE GRANULOCYTES ABSOLUTE 0.04 0.00 - 0.10 K/uL 12/17/2022 6:20 AM CDT [facility] Blood Collection / Unknown 12/17/2022 3:30 AM CDT 12/17/2022 6:14 AM CDT us Andre Mary SEARCH ENGINE MARKETING STRATEGIST HEMATOLOGY ORDERABLES Fi nal Result Performing Organization Address City/State/[facility] Co de Phone Number [facility] CLIA # [id number] [address] [place] [address] documented in this encounter Visit Diagnoses Not on filedocumented in this encounter Additional Health Concerns Infection Onset Date Last Indicated Resolved Time C Diff 11/17/2022 11/17/2022 01/16/2023 1:16 AM CDT documented as of this encounter Care Teams Automatic Vulcanizing Operator Relationship Specialty Start Date End Date Shant Ballesteros Jr., MD [address] [place] [address] PCP - General Family Practice 01/19/14 documented as of this encounter
--- OUTSIDE RECORDS SUMMARY | 2025-06-19 11:28 | XMS_ITS | Encounter Summary ---
Author Organization [employer] Address [address] [place] [address] Care Team Providers Care Collar Stitcher Name Role Phone Favian Maldonado MD, Shant Humphreys Primary Care Provider Encounter Details Date Type Department Care Team (Late st Contact Info) Description 12/12/2022 Lab Requisition [facility] Laboratory Services [address] [place] [address] [place] [address] Low Amaya, DO [address] [place] [address] Social History Tobacco Use Types Packs/Day Years Used Date Smoking Tobacco: Never Assessed Sex and Gender Information Value Date Recorded Sex Assigned at Not on file Legal Sex Male 9:45 AM DESIGN EDITOR Gender Identity Not on file Sexual Orientation [...] - 4.5 mg/dL 12/12/2022 5:57 AM CDT [facility] Blood Collection / Unknown 12/12/2022 3:15 AM CDT 12/12/2022 5:23 AM CDT Low L Tryon DO CHEMISTRY ORDERABLES Final R esult Performing Organization Address [facility] de Phone Number [facility] CLIA # [id number] [address] [place] [address] * MAGNESIUM LEVEL (12/12/2022 3:15 AM CDT) MAGNESIUM 1.9 1.6 - 2.4 mg/dL 12/12/2022 5:57 AM CDT [facility] Blood Collection / Unknown 12/12/2022 3:15 AM CDT 12/12/2022 5:23 AM CDT Low Amaya CHEMISTRY ORDERABLES Final R esult Performing Organization Address [facility] de Phone Number [facility] CLIA # [id number] [address] [place] [address] * (ABNORMAL) BASIC METABOLIC PANEL (12/12/2022 3:15 AM CDT) SODIUM 135(L) 136 - 145 mmol/L 12/12/2022 5:57 AM CDT [facility] POTASSIUM 4.7 3.5 - 5.1 mmol/L 12/12/2022 5:57 AM CDT [facility] CHLORIDE 101 98 - 107 mmol/L 12/12/2022 5:57 AM CDT [facility] CO2 24 22 - 29 mmol/L 12/12/2022 5:57 AM CDT [facility] CALCIUM 10.0 8.8 - 10.2 mg/dL 12/12/2022 5:57 AM CDT [facility] BUN 42(H) 8 - 23 mg/dL 12/12/2022 5:57 AM CDT [facility] CREATININE 1.00 0.67 - 1.17 mg/dL 12/12/2022 5:57 AM CDT [facility] GLUCOSE 133(H) 74 - 99 mg/dL 12/12/2022 5:57 AM CDT [facility] GFR >60 >=60 mL/min/1.7 3 sq meter 12/12/2022 5:57 AM CDT [facility] Comment:eGFR calculated with 2020 CKD-EPI equation. Vegetarian diet, extremely high or low muscle mass, and may affect results. Cystatin C with Glomerular Filtration Rate is a suitable alternative for these patients. ANION GAP 10 9 - 20 mmol/L 12/12/2022 5:57 AM CDT [facility] Blood Collection / Unknown 12/12/2022 3:15 AM CDT 12/12/2022 5:23 AM CDT Low Amaya DO CHEMISTRY ORDERABLES Final R esult [facility] CLIA # [id number] [facility] [address] documented in this encounter Visit Diagnoses Not on filedocumented in this encounter Additional Health Concerns Infection Onset Date Last Indicated Resolved Time C Diff 11/17/2022 11/17/2022 01/16/2023 1:16 AM CDT documented as of this encounter Care Teams Collar Stitcher Relationship Specialty Start Date End Date Shant Ballesteros Jr., MD [address] [place] [phone] PCP - General Family Practice 01/19/14 documented as of this encounter
--- NOTE | 2025-06-19 11:29 | CTR_ITS ---
PROCEDURE INFORMATION: Exam: CT Cervical Spine Without Contrast Exam date and time: 06/19/2025 12:00 PM Age: 70 years old Clinical indication: Injury or trauma; Fall; Blunt trauma TECHNIQUE: Imaging protocol: Computed tomography of the cervical spine without contrast. Radiation optimization: All CT scans at this facility use at least one of these dose optimization techniques: automated exposure control; mA and/or kV adjustment per patient size (includes targeted exams where dose is matched to clinical indication); or iterative reconstruction. COMPARISON: CT cervical spin wo con* [id number] 05/22/2025 12:34 PM RADIATION DOSE METRICS: Total DLP (mGy-cm): 302.8 FINDINGS: Bones: No acute fracture. Normal alignment. No significant disc bulge or herniation. No severe spinal canal stenosis. No significant neural foraminal narrowing. 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 Partially visualized spinal hardware in the upper thoracic spine. Lungs: Lung apices are normal. Thyroid: Low-density left thyroid nodules are seen measuring up to 4 cm in greatest transverse dimension. Soft tissues: Unremarkable. CT/CT cervical spin wo con* [id number] IMPRESSION: 1. No acute cervical spine fracture. 2. Prominent left thyroid nodules. Thyroid ultrasound is suggested. COMMENTS: Consistent with the [employer]'s Incidental Findings Committee white paper (J Am Dg Radiol 2015): In patients aged 35 years and older with an incidental thyroid nodule equal to or greater than 1.[address], MRI or extrathyroidal US, further evaluation with dedicated thyroid US is recommended for patients with normal life expectancy and without comorbidities. For smaller nodules without suspicious features, no further evaluation or follow up is recommended.
--- NOTE | 2025-06-19 11:29 | CTR_ITS ---
PROCEDURE INFORMATION: Exam: CT Head Without Contrast Exam date and time: 06/19/2025 12:00 PM Age: 70 years old Clinical indication: Injury or trauma; Fall; Blunt trauma (contusions or hematomas); Consciousness not specified TECHNIQUE: Imaging protocol: Computed tomography of the head without contrast. Radiation optimization: All CT scans at this facility use at least one of these dose optimization techniques: automated exposure control; mA and/or kV adjustment per patient size (includes targeted exams where dose is matched to clinical indication); or iterative reconstruction. COMPARISON: CT head wo con* [id number] 05/22/2025 12:34 PM RADIATION DOSE METRICS: Total DLP (mGy-cm): 1003.1 FINDINGS: Brain: Normal. No hemorrhage. Unremarkable white matter. No mass effect. Cerebral ventricles: No ventriculomegaly. Paranasal sinuses: Visualized sinuses are unremarkable. No fluid levels. Mastoid air cells: Visualized mastoid air cells are well aerated. Bones: Unremarkable. No acute fracture. Soft tissues: Unremarkable. CT/CT head wo con* [id number] IMPRESSION: No acute intracranial abnormality.
--- NOTE | 2025-06-19 11:29 | CTR_ITS ---
PROCEDURE INFORMATION: Exam: CT Chest With Contrast; Diagnostic Exam date and time: 06/19/2025 12:06 PM Age: 70 years old Clinical indication: Injury or trauma; Fall; Generalized; Blunt trauma (contusions or hematomas); Prior surgery; Surgery date: 6+ months; Surgery type: Port, thoracic spine, colonostomy TECHNIQUE: Imaging protocol: Diagnostic computed tomography of the chest with contrast. Radiation optimization: All CT scans at this facility use at least one of these dose optimization techniques: automated exposure control; mA and/or kV adjustment per patient size (includes targeted exams where dose is matched to clinical indication); or iterative reconstruction. Contrast material: OMNIPAQUE 350; Contrast volume: 100 ml; Contrast route: INTRAVENOUS (IV); COMPARISON: CT chest abdpel w/*[id number] 04/27/2025 4:54 PM RADIATION DOSE METRICS: Total DLP (mGy-cm): 1622.49 FINDINGS: Tubes, catheters and devices: Right-sided Port-A-Cath is present with the tip in the right atrium. Thyroid: Multiple heterogeneous masses are present in the thyroid. One of the larger on the left measures 2.9 cm. Lungs: There is a stable 0.5 cm nodule right lower lobe (series 4, image 39). The lungs are otherwise clear. Pleural spaces: Unremarkable. No pneumothorax. No pleural effusion. Heart: Heart size appears enlarged. There is calcifications of the mitral valve. There are coronary artery calcifications. Lymph nodes: Unremarkable. No enlarged lymph nodes. Vasculature: Unremarkable. No aortic aneurysm. Bones/joints: Marr rods are present from T4 to L1. Soft tissues: Unremarkable. COMMENTS: Consistent with the [employer]'s Incidental Findings Committee white paper (J Am Dg Radiol 2015): In patients aged 35 years and older with an incidental thyroid nodule equal to or greater than 1.[address], MRI or extrathyroidal US, further evaluation with dedicated thyroid US is recommended for patients with normal life expectancy and without comorbidities. For smaller nodules without suspicious features, no further evaluation or follow up is recommended. PROCEDURE INFORMATION: Exam: CT Abdomen And Pelvis With Contrast Exam date and time: 06/19/2025 12:06 PM Age: 70 years old Clinical indication: Injury or trauma; Fall; Generalized; Blunt trauma (contusions or hematomas); Prior surgery; Surgery date: 6+ months; Surgery type: Port, thoracic spine, colonostomy TECHNIQUE: Imaging protocol: Computed tomography of the abdomen and pelvis with contrast. Radiation optimization: All CT scans at this facility use at least one of these dose optimization techniques: automated exposure control; mA and/or kV adjustment per patient size (includes targeted exams where dose is matched to clinical indication); or iterative reconstruction. Contrast material: OMNIPAQUE 350; Contrast volume: 100 ml; Contrast route: INTRAVENOUS (IV); COMPARISON: CT abdomen pelvis w con* [id number] 05/27/2025 12:04 PM RADIATION DOSE METRICS: Total DLP (mGy-cm): 1622.49 FINDINGS: Lungs: Visualized portions of the lungs are clear. No effusions. Liver: Ill-defined hypoattenuating masses are present within the right lobe of the liver consistent with metastatic disease. There has been no significant change in appearance since the prior study. Gallbladder and biliary ducts: Normal. No calcified stones. No ductal dilation. Pancreas: Normal. No ductal dilation. Spleen: Normal. No splenomegaly. Adrenal glands: Normal. No mass. Kidneys and ureters: Small nonobstructing right renal calculus is present. Bilateral simple renal cysts are present. There is soft tissue irregularity and thickening involving the posterior aspect of the right kidney which may represent some old scarring of prior treatment. It is stable compared to the prior CT of 03/04/2025. There is no hydronephrosis. Stomach and bowel: Postop changes of right lower quadrant colostomy and left hemicolectomy are present. A blind end rectal pouch is present. Appendix: No evidence of appendicitis. Intraperitoneal space: Unremarkable. No free air. No significant fluid collection. Vasculature: Unremarkable. No abdominal aortic aneurysm. Lymph nodes: Unremarkable. No enlarged lymph nodes. Urinary bladder: Unremarkable as visualized. Reproductive: Moderate prostatic hypertrophy. Bones/joints: Marr rods are present from the thoracic spine to L1. Posterior fusion of L5-S1 is also present. No acute fractures are identified. Soft tissues: Unremarkable. CT/CT chest abdpel w/*[id number] IMPRESSION: 1. Marr rods in place. No acute fractures identified. 2. Enlarged thyroid gland with multiple masses bilaterally. 3. Stable 0.5 cm nodule right lower lobe. IMPRESSION: 1. No acute fractures are identified. Stable postop changes to the spine. 2. Metastatic disease to the liver which appears stable. 3. Right lower quadrant colostomy and postop changes of left hemicolectomy which are stable. 4. Additional findings as described above. COMMENTS: Consistent with the [employer]'s Incidental Findings Committee white paper (J Am Dg Radiol 2018): Any incidental renal lesion less than 1 cm or classified as too small to characterize, or any incidental cystic renal lesion characterized as simple-appearing, is likely benign. No follow-up imaging is recommended for these lesions per consensus recommendations based on imaging criteria.
--- OUTSIDE RECORDS SUMMARY | 2025-06-19 11:29 | XMS_ITS | Encounter Summary ---
Author Organization [employer] [facility] Address [address] [place] [address] Care Team Providers Care Air Breaker Operator Name Role Phone Favian Maldonado MD, Shant Humphreys Primary Care Provider Encounter Details Date Type Department Care Team (Late st Contact Info) Description 12/03/2022 Lab Requisition [facility] Laboratory Services [address] [place] [address] [place] [address] Andre Mary, MADHU 38[address] [facility] [address] [place] [address] Social History Tobacco Use Types Packs/Day Years Used Date Smoking Tobacco: Never Assessed Sex and Gender Information Value Date Recorded Sex Assigned at Not on file Legal Sex Male 9:45 AM PRODUCT ADVISOR Gender Identity Not on file Sexual Orientation Not on file documented as of this encounter Plan of Treatment Not on file documented as of this encounter Procedures Procedure Name Priority Date/Time Associated Diagnosis Comments CBC WITH DIFFERENTIAL Routine 12/03/2022 2:00 AM PRODUCT ADVISOR TRIGLYCERIDE Routine 12/03/2022 2:00 AM PRODUCT ADVISOR PHOSPHORUS Routine 12/03/2022 2:00 AM PRODUCT ADVISOR MAGNESIUM LEVEL Routine 12/03/2022 2:00 AM PRODUCT ADVISOR COMPREHENSIVE METABOLIC PANEL Routine 12/03/2022 2:00 AM PRODUCT ADVISOR documented in this encounter Results * MAGNESIUM LEVEL (12/03/2022 2:00 AM PRODUCT ADVISOR) MAGNESIUM 1.9 1.6 - 2.4 mg/dL 12/03/2022 7:06 AM [facility] Blood Collection / Unknown 12/03/2022 2:00 AM PRODUCT ADVISOR 12/03/2022 6:33 AM PRODUCT ADVISOR Andre Mary ELECTRICIAN SHIP CHEMISTRY ORDERABLES Fin al Result Performing Organization Address [facility] de Phone Number [facility] CLIA # [id number] [address] [place], [place] [address] * (ABNORMAL) TRIGLYCERIDE (12/03/2022 2:00 AM PRODUCT ADVISOR) Pathologist [facility] TRIGLYCERIDE 163(H) <150 mg/dL 12/03/2022 7:06 AM [facility] Blood Collection / Unknown 12/03/2022 2:00 AM PRODUCT ADVISOR 12/03/2022 6:33 AM PRODUCT ADVISOR Narrative [facility] - 12/03/2022 7:06 AM PRODUCT ADVISOR TRIGLYCERIDES mg/dL Normal < 150 Borderline High 150 - 199 High 200 - 499 Very High >= 500 Based on AHA/NCEP Guidelines. Andre Mary ELECTRICIAN SHIP CHEMISTRY ORDERABLES Fin al Result Performing Organization Address [facility] de Phone Number [facility] CLIA # [id number] [address] [facility] [place], [place] [address] * PHOSPHORUS (12/03/2022 2:00 AM PRODUCT ADVISOR) Pathologist [facility] PHOSPHORUS 3.3 2.5 - 4.5 mg/dL 12/03/2022 7:06 AM [facility] Blood Collection / Unknown 12/03/2022 2:00 AM PRODUCT ADVISOR 12/03/2022 6:33 AM PRODUCT ADVISOR us Andre Mary NP CHEMISTRY ORDERABLES Fin al Result [facility] CLIA # [id number] [address] [facility] [place] [address] * (ABNORMAL) CBC WITH DIFFERENTIAL (12/03/2022 2:00 AM PRODUCT ADVISOR) [facility] WBC 6.5 4.8 - 10.8 K/uL 12/03/2022 6:40 AM [facility] RBC 3.05(L) 4.60 - 6.20 M/uL 12/03/2022 6:40 AM [facility] HEMOGLOBIN 9.1(L) 14.0 - 18.0 g/dL 12/03/2022 6:40 AM [facility] HEMATOCRIT 30.4(L) 41.0 - 53.0 % 12/03/2022 6:40 AM [facility] MCV 99.7 84.0 - 103.0 fL 12/03/2022 6:40 AM [facility] MCH 29.8 27.0 - 34.0 pg 12/03/2022 6:40 AM [facility] MCHC 29.9(L) 30.0 - 35.0 g/dL 12/03/2022 6:40 AM [facility] RDW 17.5(H) 11.0 - 14.5 % 12/03/2022 6:40 AM [facility] RDW-STDEV 63.8(H) 37.0 - 54.0 fL 12/03/2022 6:40 AM [facility] PLATELETS 247 140 - 440 K/uL 12/03/2022 6:40 AM [facility] MPV 10.6 8.9 - 12.8 fL 12/03/2022 6:40 AM [facility] NEUTROPHILS 57 42 - 75 % 12/03/2022 6:40 AM [facility] LYMPHOCYTES 19(L) 24 - 44 % 12/03/2022 6:40 AM [facility] MONOCYTES 12(H) 2 - 10 % 12/03/2022 6:40 AM [facility] EOSINOPHILS 11(H) 0 - 7 % 12/03/2022 6:40 AM [facility] BASOPHILS 1 0 - 1 % 12/03/2022 6:40 AM [facility] IMMATURE GRANULOCYTES 1 0 - 2 % 12/03/2022 6:40 AM [facility] NEUTROPHIL ABSOLUTE 3.68 2.00 - 8.00 K/uL 12/03/2022 6:40 AM [facility] LYMPHOCYTE ABSOLUTE 1.22 1.20 - 4.00 K/uL 12/03/2022 6:40 AM [facility] MONOCYTE ABSOLUTE 0.80(H) 0.10 - 0.60 K/uL 12/03/2022 6:40 AM [facility] EOSINOPHIL ABSOLUTE 0.69 0.00 - 0.70 K/uL 12/03/2022 6:40 AM [facility] BASOPHILS ABSOLUTE 0.06 0.00 - 0.20 K/uL 12/03/2022 6:40 AM [facility] IMMATURE GRANULOCYTES ABSOLUTE 0.03 0.00 - 0.10 K/uL 12/03/2022 6:40 AM [facility] Blood Collection / Unknown 12/03/2022 2:00 AM PRODUCT ADVISOR 12/03/2022 6:32 AM [facility] us Andre Mary ELECTRICIAN SHIP HEMATOLOGY ORDERABLES Fi nal Result [facility] CLIA # [id number] [address] [facility] [place], [place] [id number] * (ABNORMAL) COMPREHENSIVE METABOLIC PANEL (12/03/2022 2:00 AM PRODUCT ADVISOR) [facility] SODIUM 140 136 - 145 mmol/L 12/03/2022 7:06 AM [facility] POTASSIUM 3.5 3.5 - 5.1 mmol/L 12/03/2022 7:06 AM [facility] CHLORIDE 101 98 - 107 mmol/L 12/03/2022 7:06 AM [facility] CO2 31(H) 22 - 29 mmol/L 12/03/2022 7:06 AM [facility] CALCIUM 9.8 8.8 - 10.2 mg/dL 12/03/2022 7:06 AM [facility] BUN 28(H) 8 - 23 mg/dL 12/03/2022 7:06 AM [facility] CREATININE 0.88 0.67 - 1.17 mg/dL 12/03/2022 7:06 AM [facility] GLUCOSE 130(H) 74 - 99 mg/dL 12/03/2022 7:06 AM [facility] TOTAL PROTEIN 6.8 6.4 - 8.3 g/dL 12/03/2022 7:06 AM [facility] ALBUMIN 3.1(L) 3.5 - 5.2 g/dL 12/03/2022 7:06 AM [facility] BILIRUBIN TOTAL 0.3 0.2 - 1.0 mg/dL 12/03/2022 7:06 AM [facility] ALKALINE PHOSPHATASE 104 40 - 129 U/L 12/03/2022 7:06 AM [facility] AST 19 10 - 50 U/L 12/03/2022 7:06 AM [facility] ALT 14 <=50 U/L 12/03/2022 7:06 AM [facility] GFR >60 >=60 mL/min/1.7 3 sq meter 12/03/2022 7:06 AM [facility] Comment:eGFR calculated with 2020 CKD-EPI equation. Vegetarian diet, extremely high or low muscle mass, and may affect results. Cystatin C with Glomerular Filtration Rate is a suitable alternative for these patients. ANION GAP 8(L) 9 - 20 mmol/L 12/03/2022 7:06 AM PRODUCT ADVISOR [facility] Blood Collection / Unknown 12/03/2022 2:00 AM PRODUCT ADVISOR 12/03/2022 6:33 AM PRODUCT ADVISOR us Andre Mary ELECTRICIAN SHIP CHEMISTRY ORDERABLES Fin al Result [facility] CLIA # [id number] [facility] [address] [place] [address] documented in this encounter Visit Diagnoses Not on filedocumented in this encounter Additional Health Concerns Infection Onset Date Last Indicated Resolved Time C Diff 11/17/2022 11/17/2022 01/16/2023 1:16 AM CDT documented as of this encounter Care Teams Air Breaker Operator Relationship Specialty Start Date End Date Shant Ballesteros Jr., MD [address] [place] [address] PCP - General Family Practice 01/19/14 documented as of this encounter
--- OUTSIDE RECORDS SUMMARY | 2025-06-19 11:29 | XMS_ITS | Encounter Summary ---
Author Organization [employer] Address [address] [place] [address] Care Team Providers Care Fittings Tightener Name Role Phone Favian Maldonado MD, Shant Humphreys Primary Care Provider Encounter Details Date Type Department Care Team (Late st Contact Info) Description 11/30/2022 Lab Requisition [facility] Laboratory Services [address] [place] [address] [place] [address] Low Amaya, DO [address] [place] [phone] Social History Tobacco Use Types Packs/Day Years Used Date Smoking Tobacco: Never Assessed Sex and Gender Information Value Date Recorded Sex Assigned at Not on file Legal Sex Male 9:45 AM SOLO TRUCK DRIVER Gender Identity Not on file Sexual Orientation Not on file documented as of this encounter Plan of Treatment Not on file documented as of this encounter Procedures Procedure Name Priority Date/Time Associated Diagnosis Comments PHOSPHORUS Routine 11/30/2022 4:55 AM SOLO TRUCK DRIVER MAGNESIUM LEVEL Routine 11/30/2022 4:55 AM SOLO TRUCK DRIVER BASIC METABOLIC PANEL Routine 11/30/2022 4:55 AM SOLO TRUCK DRIVER documented in this encounter Results * MAGNESIUM LEVEL (11/30/2022 4:55 AM SOLO TRUCK DRIVER) MAGNESIUM 2.0 1.6 - 2.4 mg/dL 11/30/2022 8:00 AM SOLO TRUCK DRIVER [facility] Blood Collection / Unknown 11/30/2022 4:55 AM SOLO TRUCK DRIVER 11/30/2022 6:21 AM SOLO TRUCK DRIVER Low Amaya DO CHEMISTRY ORDERABLES Final R esult Performing Organization Address [facility]/ZIP Co de Phone Number [facility] CLIA # [id number] [address] [address] * PHOSPHORUS (11/30/2022 4:55 AM SOLO TRUCK DRIVER) PHOSPHORUS 3.6 2.5 - 4.5 mg/dL 11/30/2022 6:35 AM [facility] Blood Collection / Unknown 11/30/2022 4:55 AM SOLO TRUCK DRIVER 11/30/2022 6:21 AM SOLO TRUCK DRIVER Low Amaya DO CHEMISTRY ORDERABLES Final R esult Performing Organization Address [facility]/ZIP Co de Phone Number [facility] CLIA # [id number] [address] [address] * (ABNORMAL) BASIC METABOLIC PANEL (11/30/2022 4:55 AM SOLO TRUCK DRIVER) SODIUM 140 136 - 145 mmol/L 11/30/2022 6:35 AM [facility] POTASSIUM 4.1 3.5 - 5.1 mmol/L 11/30/2022 6:35 AM [facility] CHLORIDE 101 98 - 107 mmol/L 11/30/2022 6:35 AM [facility] CO2 34(H) 22 - 29 mmol/L 11/30/2022 6:35 AM [facility] CALCIUM 9.8 8.8 - 10.2 mg/dL 11/30/2022 6:35 AM [facility] BUN 31(H) 8 - 23 mg/dL 11/30/2022 6:35 AM [facility] CREATININE 0.99 0.67 - 1.17 mg/dL 11/30/2022 6:35 AM [facility] GLUCOSE 129(H) 74 - 99 mg/dL 11/30/2022 6:35 AM [facility] GFR >60 >=60 mL/min/1.7 3 sq meter 11/30/2022 6:35 AM [facility] Comment:eGFR calculated with 2020 CKD-EPI equation. Vegetarian diet, extremely high or low muscle mass, and may affect results. Cystatin C with Glomerular Filtration Rate is a suitable alternative for these patients. ANION GAP 5(L) 9 - 20 mmol/L 11/30/2022 6:35 AM [facility] Blood Collection / Unknown 11/30/2022 4:55 AM [employer] 11/30/2022 6:21 AM [employer] Low Amaya DO CHEMISTRY ORDERABLES Final R esult [facility] CLIA # [id number] [address] [place] [id number] documented in this encounter Visit Diagnoses Not on filedocumented in this encounter Additional Health Concerns Infection Onset Date Last Indicated Resolved Time C Diff 11/17/2022 11/17/2022 01/16/2023 1:16 AM CDT documented as of this encounter Care Teams Fittings Tightener Relationship Specialty Start Date End Date Shant Ballesteros Jr., MD [address] [place] [id number] PCP - General Family Practice 01/19/14 documented as of this encounter
--- OUTSIDE RECORDS SUMMARY | 2025-06-19 11:29 | XMS_ITS | Encounter Summary ---
Author Organization [employer] Address [address] [place] [address] Care Team Providers Care Package Worker Name Role Phone Favian Maldonado MD, Shant Humphreys Primary Care Provider Encounter Details Date Type Department Care Team (Late st Contact Info) Description 12/05/2022 Lab Requisition [facility] Laboratory Services [address] [place] [address] Low Amaya, DO [address] [place] [phone] Social History Tobacco Use Types Packs/Day Years Used Date Smoking Tobacco: Never Assessed Sex and Gender Information Value Date Recorded Sex Assigned at Not on file Legal Sex Male 9:45 AM MATERIALS PLANNING ANALYST Gender Identity Not on file Sexual Orientation Not on file documented as of this encounter Plan of Treatment Not on file documented as of this encounter Procedures Procedure Name Priority Date/Time Associated Diagnosis Comments PHOSPHORUS Routine 12/05/2022 6:30 AM MATERIALS PLANNING ANALYST MAGNESIUM LEVEL Routine 12/05/2022 6:30 AM MATERIALS PLANNING ANALYST BASIC METABOLIC PANEL Routine 12/05/2022 6:30 AM MATERIALS PLANNING ANALYST documented in this encounter Results * MAGNESIUM LEVEL (12/05/2022 6:30 AM MATERIALS PLANNING ANALYST) MAGNESIUM 2.0 1.6 - 2.4 mg/dL 12/05/2022 8:37 AM MATERIALS PLANNING ANALYST [facility] Blood Collection / Unknown 12/05/2022 6:30 AM MATERIALS PLANNING ANALYST 12/05/2022 8:18 AM MATERIALS PLANNING ANALYST Low Amaya DO CHEMISTRY ORDERABLES Final R esult Performing Organization Address [facility]/ZIP Co de Phone Number [facility] CLIA # [id number] [address] [address] * PHOSPHORUS (12/05/2022 6:30 AM MATERIALS PLANNING ANALYST) PHOSPHORUS 4.0 2.5 - 4.5 mg/dL 12/05/2022 8:37 AM [facility] Blood Collection / Unknown 12/05/2022 6:30 AM MATERIALS PLANNING ANALYST 12/05/2022 8:18 AM MATERIALS PLANNING ANALYST Low Amaya DO CHEMISTRY ORDERABLES Final R esult Performing Organization Address [facility] Co de Phone Number [facility] CLIA # [id number] [address] [address] * (ABNORMAL) BASIC METABOLIC PANEL (12/05/2022 6:30 AM MATERIALS PLANNING ANALYST) SODIUM 141 136 - 145 mmol/L 12/05/2022 [...] Blood Collection / Unknown 12/05/2022 6:30 AM MATERIALS PLANNING ANALYST 12/05/2022 8:18 AM MATERIALS PLANNING ANALYST Low Amaya DO CHEMISTRY ORDERABLES Final R esult [id number] [address] [place] [address] documented in this encounter Visit Diagnoses Not on filedocumented in this encounter Additional Health Concerns Infection Onset Date Last Indicated Resolved Time C Diff 11/17/2022 11/17/2022 01/16/2023 1:16 AM CDT documented as of this encounter Care Teams Package Worker Relationship Specialty Start Date End Date Shant Ballesteros Jr., MD [address] [place] [address] PCP - General Family Practice 01/19/14 documented as of this encounter
--- OUTSIDE RECORDS SUMMARY | 2025-06-19 11:29 | XMS_ITS | Encounter Summary ---
Author Organization [employer] Address [address] [place] [address] Care Team Providers Care Paint Stock Clerk Name Role Phone Favian Maldonado MD, Shant Humphreys Primary Care Provider Encounter Details Date Type Department Care Team (Late st Contact Info) Description 11/28/2022 Lab Requisition [facility] Laboratory Services [address] [place] [address] Low Amaya, DO [address] [place] [phone] Social History Tobacco Use Types Packs/Day Years Used Date Smoking Tobacco: Never Assessed Sex and Gender Information Value Date Recorded Sex Assigned at Not on file Legal Sex Male 9:45 AM INTEGRITY ANALYST Gender Identity Not on file Sexual Orientation Not on file documented as of this encounter Plan of Treatment Not on file documented as of this encounter Procedures Procedure Name Priority Date/Time Associated Diagnosis Comments PHOSPHORUS Routine 11/28/2022 7:48 AM INTEGRITY ANALYST MAGNESIUM LEVEL Routine 11/28/2022 7:48 AM INTEGRITY ANALYST COMPREHENSIVE METABOLIC PANEL Routine 11/28/2022 7:48 AM INTEGRITY ANALYST documented in this encounter Results * MAGNESIUM LEVEL (11/28/2022 7:48 AM INTEGRITY ANALYST) MAGNESIUM 2.0 1.6 - 2.4 mg/dL 11/28/2022 8:53 AM INTEGRITY ANALYST [facility] Blood Collection / Unknown 11/28/2022 7:48 AM INTEGRITY ANALYST 11/28/2022 8:34 AM INTEGRITY ANALYST Low Amaya DO CHEMISTRY ORDERABLES Final R esult Performing Organization Address [facility]/ZIP Co de Phone Number [facility] CLIA # [id number] [address] [address] * PHOSPHORUS (11/28/2022 7:48 AM INTEGRITY ANALYST) PHOSPHORUS 3.0 2.5 - 4.5 mg/dL 11/28/2022 8:[address] [facility] Blood Collection / Unknown 11/28/2022 7:48 AM INTEGRITY ANALYST 11/28/2022 8:34 AM INTEGRITY ANALYST Low Amaya DO CHEMISTRY ORDERABLES Final R esult Performing Organization Address [facility]/ZIP Co de Phone Number [facility] CLIA # [id number] [address] [address] * (ABNORMAL) COMPREHENSIVE METABOLIC PANEL (11/28/2022 7:48 AM INTEGRITY ANALYST) SODIUM 143 136 - 145 mmol/L 11/28/2022 8:[address] [facility] POTASSIUM 4.0 3.5 - 5.1 mmol/L 11/28/2022 8:[address] [facility] CHLORIDE 103 98 - 107 mmol/L 11/28/2022 8:[address] [facility] CO2 33(H) 22 - 29 mmol/L 11/28/2022 8:[address] [facility] CALCIUM 9.4 8.8 - 10.2 mg/dL 11/28/2022 8:[address] [facility] BUN 27(H) 8 - 23 mg/dL 11/28/2022 8:[address] [facility] CREATININE 0.96 0.67 - 1.17 mg/dL 11/28/2022 8:[address] [facility] GLUCOSE 112(H) 74 - 99 mg/dL 11/28/2022 8:[address] [facility] TOTAL PROTEIN 7.0 6.4 - 8.3 g/dL 11/28/2022 8:[address] [facility] ALBUMIN 3.1(L) 3.5 - 5.2 g/dL 11/28/2022 8:[address] [facility] BILIRUBIN TOTAL 0.3 0.2 - 1.0 mg/dL 11/28/2022 8:[address] [facility] ALKALINE PHOSPHATASE 97 40 - 129 U/L 11/28/2022 8:[address] [facility] AST 14 10 - 50 U/L 11/28/2022 8:[address] [facility] ALT 11 <=50 U/L 11/28/2022 8:[address] [facility] GFR >60 >=60 mL/min/1.7 3 sq meter 11/28/2022 8:[address] [facility] Comment:eGFR calculated with 2020 CKD-EPI equation. Vegetarian diet, extremely high or low muscle mass, and may affect results. Cystatin C with Glomerular Filtration Rate is a suitable alternative for these patients. ANION GAP 7(L) 9 - 20 mmol/L 11/28/2022 8:[address] [facility] Blood Collection / Unknown 11/28/2022 7:48 AM INTEGRITY ANALYST 11/28/2022 8:34 AM INTEGRITY ANALYST us Low Amaya DO CHEMISTRY ORDERABLES Final R esult [facility] CLIA # [id number] [facility] [address] documented in this encounter Visit Diagnoses Not on filedocumented in this encounter Additional Health Concerns Infection Onset Date Last Indicated Resolved Time C Diff 11/17/2022 11/17/2022 01/16/2023 1:16 AM CDT documented as of this encounter Care Teams Paint Stock Clerk Relationship Specialty Start Date End Date Shant Ballesteros Jr., MD [address] [place] [address] PCP - General Family Practice 01/19/14 documented as of this encounter
--- OUTSIDE RECORDS SUMMARY | 2025-06-19 11:29 | XMS_ITS | Encounter Summary ---
Author Organization [employer] Address [address] [place] [address] Care Team Providers Care Medical Device Engineer Name Role Phone Favian Maldonado MD, Shant Humphreys Primary Care Provider Encounter Details Date Type Department Care Team (Late st Contact Info) Description 12/09/2022 Lab Requisition [facility] Laboratory Services [address] [place] [address] Esther Sarmiento MD [address] [place] [address] Social History Tobacco Use Types Packs/Day Years Used Date Smoking Tobacco: Never Assessed Sex and Gender Information Value Date Recorded Sex Assigned at Not on file Legal Sex Male 9:45 AM FINISHED YARN EXAMINER Gender Identity Not on file Sexual Orientation [...] - 4.5 mg/dL 12/09/2022 6:34 AM CDT [facility] [employer] [facility] Blood Collection / Unknown 12/09/2022 4:20 AM CDT 12/09/2022 6:15 AM CDT Esther Sarmiento MD CHEMISTRY ORDERABLES Final Resul t Performing Organization Address [facility] Co de Phone Number [facility] CLIA # [id number] [address] [address] * MAGNESIUM LEVEL (12/09/2022 4:20 AM CDT) MAGNESIUM 2.0 1.6 - 2.4 mg/dL 12/09/2022 6:34 AM CDT [facility] [employer] [facility] Blood Collection / Unknown 12/09/2022 4:20 AM CDT 12/09/2022 6:15 AM CDT Esther Sarmiento MD CHEMISTRY ORDERABLES Final Resul t Performing Organization Address [facility] Co de Phone Number [facility] [employer] [facility] CLIA # [id number] [address] [address] * (ABNORMAL) COMPREHENSIVE METABOLIC PANEL (12/09/2022 4:20 AM CDT) SODIUM 136 136 - 145 mmol/L 12/09/2022 6:34 AM CDT [facility] [employer] [facility] POTASSIUM 4.2 3.5 - 5.1 mmol/L 12/09/2022 6:34 AM CDT [facility] [employer] [facility] CHLORIDE 103 98 - 107 mmol/L 12/09/2022 6:[address] [facility] CO2 27 22 - 29 mmol/L 12/09/2022 6:34 AM CDT [facility] [employer] [facility] CALCIUM 9.8 8.8 - 10.2 mg/dL 12/09/2022 6:34 AM CDT [facility] [employer] [facility] BUN 34(H) 8 - 23 mg/dL 12/09/2022 6:34 AM CDT [facility] CREATININE 0.89 0.67 - 1.17 mg/dL 12/09/2022 6:34 AM T [facility] GLUCOSE 136(H) 74 - 99 mg/dL 12/09/2022 6:34 AM T [facility] TOTAL PROTEIN 7.2 6.4 - 8.3 g/dL 12/09/2022 6:34 AM [facility] ALBUMIN 3.4(L) 3.5 - 5.2 g/dL 12/09/2022 6:34 AM T [facility] BILIRUBIN TOTAL 0.2 0.2 - 1.0 mg/dL 12/09/2022 6:34 AM [facility] ALKALINE PHOSPHATASE 116 40 - 129 U/L 12/09/2022 6:34 AM [facility] AST 16 10 - 50 U/L 12/09/2022 6:34 AM [facility] ALT 17 <=50 U/L 12/09/2022 6:34 AM [facility] GFR >60 >=60 mL/min/1.7 3 sq meter 12/09/2022 6:34 AM [facility] Comment:eGFR calculated with 2020 CKD-EPI equation. Vegetarian diet, extremely high or low muscle mass, and may affect results. Cystatin C with Glomerular Filtration Rate is a suitable alternative for these patients. ANION GAP 6(L) 9 - 20 mmol/L 12/09/2022 6:34 AM [facility] Blood Collection / Unknown 12/09/2022 4:20 AM CDT 12/09/2022 6:15 AM CDT us Esther Sarmiento MD CHEMISTRY ORDERABLES Final Resul t [facility] CLIA # [id number] [address] [address] documented in this encounter Visit Diagnoses Not on filedocumented in this encounter Additional Health Concerns Infection Onset Date Last Indicated Resolved Time C Diff 11/17/2022 11/17/2022 01/16/2023 1:16 AM CDT documented as of this encounter Care Teams Medical Device Engineer Relationship Specialty Start Date End Date Shant Ballesteros Jr., MD [address] [place] [address] PCP - General Family Practice 01/19/14 documented as of this encounter
--- OUTSIDE RECORDS SUMMARY | 2025-06-19 11:29 | XMS_ITS | Encounter Summary ---
Author Organization [employer] Address [address] [place] [address] Care Team Providers Care Event Decorator Name Role Phone Favian Maldonado MD, Shant Humphreys Primary Care Provider Encounter Details Date Type Department Care Team (Late st Contact Info) Description 11/21/2022 Lab Requisition [facility] Laboratory Services [address] [place] [address] Low Amaya, DO [address] [place] [phone] Social History Tobacco Use Types Packs/Day Years Used Date Smoking Tobacco: Never Assessed Sex and Gender Information Value Date Recorded Sex Assigned at Not on file Legal Sex Male 9:45 AM JUMPBASTING ARMHOLE 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 Gender Identity Not on file Sexual Orientation Not on file documented as of this encounter Plan of Treatment Not on file documented as of this encounter Procedures Procedure Name Priority Date/Time Associated Diagnosis Comments PHOSPHORUS Routine 11/21/2022 4:40 AM JUMPBASTING ARMHOLE BASTER MAGNESIUM LEVEL Routine 11/21/2022 4:40 AM JUMPBASTING ARMHOLE BASTER BASIC METABOLIC PANEL Routine 11/21/2022 4:40 AM JUMPBASTING ARMHOLE BASTER documented in this encounter Results * MAGNESIUM LEVEL (11/21/2022 4:40 AM JUMPBASTING ARMHOLE BASTER) MAGNESIUM 1.8 1.6 - 2.4 mg/dL 11/21/2022 5:26 AM JUMPBASTING ARMHOLE BASTER [facility] Blood Collection / Unknown 11/21/2022 4:40 AM JUMPBASTING ARMHOLE BASTER 11/21/2022 5:08 AM JUMPBASTING ARMHOLE BASTER Low Amaya DO CHEMISTRY ORDERABLES Final R esult Performing Organization Address [facility]/ZIP Co de Phone Number [facility] CLIA # [id number] [id number] [place] [address] * PHOSPHORUS (11/21/2022 4:40 AM JUMPBASTING ARMHOLE BASTER) PHOSPHORUS 2.8 2.5 - 4.5 mg/dL 11/21/2022 5:26 AM [facility] Blood Collection / Unknown 11/21/2022 4:40 AM JUMPBASTING ARMHOLE BASTER 11/21/2022 5:08 AM JUMPBASTING ARMHOLE BASTER Low Amaya DO CHEMISTRY ORDERABLES Final R esult Performing Organization Address City/[facility]/ZIP Co de Phone Number [facility] CLIA # [id number] [address] [address] * (ABNORMAL) BASIC METABOLIC PANEL (11/21/2022 4:40 AM JUMPBASTING ARMHOLE BASTER) SODIUM 145 136 - 145 mmol/L 11/21/2022 5:26 AM [facility] [employer] [facility] POTASSIUM 3.5 3.5 - 5.1 mmol/L 11/21/2022 5:26 AM [facility] CHLORIDE 106 98 - 107 mmol/L 11/21/2022 5:26 AM [facility] CO2 31(H) 22 - 29 mmol/L 11/21/2022 5:26 AM [facility] CALCIUM 9.3 8.8 - 10.2 mg/dL 11/21/2022 5:26 AM [facility] BUN 29(H) 8 - 23 mg/dL 11/21/2022 5:26 AM [facility] CREATININE 0.95 0.67 - 1.17 mg/dL 11/21/2022 5:26 AM [facility] GLUCOSE 136(H) 74 - 99 mg/dL 11/21/2022 5:26 AM [facility] GFR >60 >=60 mL/min/1.7 3 sq meter 11/21/2022 5:26 AM [facility] Comment:eGFR calculated with 2020 CKD-EPI equation. Vegetarian diet, extremely high or low muscle mass, and may affect results. Cystatin C with Glomerular Filtration Rate is a suitable alternative for these patients. ANION GAP 8(L) 9 - 20 mmol/L 11/21/2022 5:26 AM [facility] Blood Collection / Unknown 11/21/2022 4:40 AM JUMPBASTING ARMHOLE BASTER 11/21/2022 5:08 AM JUMPBASTING ARMHOLE BASTER Low Amaya DO CHEMISTRY ORDERABLES Final R esult [facility] CLIA # [id number] [address] [place] [address] documented in this encounter Visit Diagnoses Not on filedocumented in this encounter Additional Health Concerns Infection Onset Date Last Indicated Resolved Time C Diff 11/17/2022 11/17/2022 01/16/2023 1:16 AM CDT documented as of this encounter Care Teams Event Decorator Relationship Specialty Start Date End Date Shant Ballesteros Jr., MD [address] [place] [address] PCP - General Family Practice 01/19/14 documented as of this encounter
--- OUTSIDE RECORDS SUMMARY | 2025-06-19 11:29 | XMS_ITS | Encounter Summary ---
Author Organization [facility] Address [address] [place] [address] Care Team Providers Care Level Vial Inspector Name Role Phone Favian Maldonado MD, Shant Humphreys Primary Care Provider Encounter Details Date Type Department Care Team (Late st Contact Info) Description 12/19/2022 Lab Requisition [facility] Laboratory Services [address] [place] [address] Esther Sarmiento MD [address] [place] [address] Social History Tobacco Use Types [...] on file Legal Sex Male 9:45 AM GRAIN ELEVATOR AGENT Gender Identity Not on file Sexual [...] MD HEMATOLOGY ORDERABLES Final Resu lt [facility] CLIA # [id number] [facility] [address] * (ABNORMAL) COMPREHENSIVE METABOLIC PANEL (12/19/2022 4:50 AM CDT) SODIUM 135(L) 136 - 145 mmol/L 12/19/2022 10:48 AM CDT [facility] POTASSIUM 5.3(H) 3.5 - 5.1 mmol/L 12/19/2022 10:48 AM CDT [facility] CHLORIDE 99 98 - 107 mmol/L 12/19/2022 10:48 AM CDT [facility] CO2 25 22 - 29 mmol/L 12/19/2022 10:48 AM CDT [facility] CALCIUM 10.4(H) 8.8 - 10.2 mg/dL 12/19/2022 10:48 AM CDT [facility] BUN 44(H) 8 - 23 mg/dL 12/19/2022 10:48 AM CDT [facility] CREATININE 1.13 0.67 - 1.17 mg/dL 12/19/2022 10:48 AM CDT [facility] GLUCOSE 116(H) 74 - 99 mg/dL 12/19/2022 10:48 AM CDT [facility] TOTAL PROTEIN 7.5 6.4 - 8.3 g/dL 12/19/2022 10:48 AM CDT [facility] ALBUMIN 3.8 3.5 - 5.2 g/dL 12/19/2022 10:48 AM CDT [facility] BILIRUBIN TOTAL <0.2(L) 0.2 - 1.0 mg/dL 12/19/2022 10:48 AM CDT [facility] ALKALINE PHOSPHATASE 111 40 - 129 U/L 12/19/2022 10:48 AM CDT [facility] AST 27 10 - 50 U/L 12/19/2022 10:48 AM CDT [facility] ALT 38 <=50 U/L 12/19/2022 10:48 AM CDT [facility] GFR >60 >=60 mL/min/1. 73 sq meter 12/19/2022 10:48 AM CDT [facility] Comment:eGFR calculated with 2020 CKD-EPI equation. Vegetarian diet, extremely high or low muscle mass, and may affect results. Cystatin C with Glomerular Filtration Rate is a suitable alternative for these patients. ANION GAP 11 9 - 20 mmol/L 12/19/2022 10:48 AM CDT [facility] Blood Collection / Unknown 12/19/2022 4:50 AM CDT 12/19/2022 10:29 AM CDT us Esther Sarmiento MD CHEMISTRY ORDERABLES Final Resul t [facility] [id number] [address] [place] [address] documented in this encounter Visit Diagnoses Not on filedocumented in this encounter Additional Health Concerns Infection Onset Date Last Indicated Resolved Time C Diff 11/17/2022 11/17/2022 01/16/2023 1:16 AM CDT documented as of this encounter Care Teams Level Vial Inspector Relationship Specialty Start Date End Date Shant Ballesteros Jr., MD [address] [place] [phone] PCP - General Family Practice 01/19/14 documented as of this encounter
--- OUTSIDE RECORDS SUMMARY | 2025-06-19 11:29 | XMS_ITS | Encounter Summary ---
Author Organization [employer] Address 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
--- OUTSIDE RECORDS SUMMARY | 2025-06-19 11:29 | XMS_ITS | Encounter Summary ---
Author Organization [employer] Address [address] [place] [address] Care Team Providers Care Service Delivery Supervisor Name Role Phone Favian Maldonado MD, Shant Humphreys Primary Care Provider Encounter Details Date Type Department Care Team (Late st Contact Info) Description 12/07/2022 Lab Requisition [facility] Laboratory Services [address] [place] [address] Low Amaya, DO [address] [place] [phone] Social History Tobacco Use Types Packs/Day Years Used Date Smoking Tobacco: Never Assessed Sex and Gender Information Value Date Recorded Sex Assigned at Not on file Legal Sex Male 9:45 AM PUTTY GLAZER Gender Identity Not on file Sexual Orientation Not on file documented as of this encounter Plan of Treatment Not on file documented as of this encounter Procedures Procedure Name Priority Date/Time Associated Diagnosis Comments PHOSPHORUS Routine 12/07/2022 3:30 AM PUTTY GLAZER MAGNESIUM LEVEL Routine 12/07/2022 3:30 AM PUTTY GLAZER BASIC METABOLIC PANEL Routine 12/07/2022 3:30 AM PUTTY GLAZER documented in this encounter Results * (ABNORMAL) PHOSPHORUS (12/07/2022 3:30 AM PUTTY GLAZER) PHOSPHORUS 4.7(H) 2.5 - 4.5 mg/dL 12/07/2022 5:41 AM PUTTY GLAZER [facility] LABORATORY [facility] Blood Collection / Unknown 12/07/2022 3:30 AM PUTTY GLAZER 12/07/2022 5:10 AM PUTTY GLAZER Low Monique DO CHEMISTRY ORDERABLES Final R esult Performing Organization Address City/[facility]/ZIP Co de Phone Number [facility] CLIA # [id number] [id number] [place] [address] * MAGNESIUM LEVEL (12/07/2022 3:30 AM PUTTY GLAZER) MAGNESIUM 1.9 1.6 - 2.4 mg/dL 12/07/2022 5:41 AM [facility] Blood Collection / Unknown 12/07/2022 3:30 AM PUTTY GLAZER 12/07/2022 5:10 AM PUTTY GLAZER Low Amaya DO CHEMISTRY ORDERABLES Final R esult Performing Organization Address City/[facility]/ZIP Co de Phone Number [facility] CLIA # [id number] [id number] [place] [address] * (ABNORMAL) BASIC METABOLIC PANEL (12/07/2022 3:30 AM PUTTY GLAZER) SODIUM 137 136 - 145 mmol/L 12/07/2022 5:[address] [facility] Spreaker [facility] POTASSIUM 4.2 3.5 - 5.1 mmol/L 12/07/2022 5:[address] [facility] Spreaker [facility] CHLORIDE 103 98 - 107 mmol/L 12/07/2022 5:[address] [facility] Spreaker [facility] CO2 26 22 - 29 mmol/L 12/07/2022 5:41 AM [facility] CALCIUM 9.5 8.8 - 10.2 mg/dL 12/07/2022 5:[address] [facility] Spreaker [facility] BUN 36(H) 8 - 23 mg/dL 12/07/2022 5:41 AM [facility] CREATININE 0.95 0.67 - 1.17 mg/dL 12/07/2022 5:41 AM [facility] GLUCOSE 102(H) 74 - 99 mg/dL 12/07/2022 5:41 AM [facility] GFR >60 >=60 mL/min/1.7 3 sq meter 12/07/2022 5:41 AM [facility] Comment:eGFR calculated with 2020 CKD-EPI equation. Vegetarian diet, extremely high or low muscle mass, and may affect results. Cystatin C with Glomerular Filtration Rate is a suitable alternative for these patients. ANION GAP 8(L) 9 - 20 mmol/L 12/07/2022 5:41 AM [facility] Blood Collection / Unknown 12/07/2022 3:30 AM PUTTY GLAZER 12/07/2022 5:10 AM PUTTY GLAZER Low Amaya DO CHEMISTRY ORDERABLES Final R esult [facility] CLIA # [id number] [address] [place] [address] documented in this encounter Visit Diagnoses Not on filedocumented in this encounter Additional Health Concerns Infection Onset Date Last Indicated Resolved Time C Diff 11/17/2022 11/17/2022 01/16/2023 1:16 AM CDT documented as of this encounter Care Teams Service Delivery Supervisor Relationship Specialty Start Date End Date Shant Ballesteros Jr., MD [address] [place] [address] PCP - General Family Practice 01/19/14 documented as of this encounter
--- OUTSIDE RECORDS SUMMARY | 2025-06-19 11:29 | XMS_ITS | Encounter Summary ---
Author Organization [facility] Address [address] [place] [address] Care Team Providers Care Meat Trimmer Name Role Phone Favian Maldonado MD, Shant Humphreys Primary Care Provider Encounter Details Date Type Department Care Team (Late st Contact Info) Description 12/06/2022 Lab Requisition [facility] Laboratory Services [address] [place] [address] Deborah Aguilar MD [address] [place] [address] Social History Tobacco Use Types Packs/Day Years Used Date Smoking Tobacco: Never Assessed Sex and Gender Information Value Date Recorded Sex Assigned at Not on file Legal Sex Male 9:45 AM SANITATION LEAD Gender Identity Not on file Sexual Orientation Not on file documented as of this encounter Plan of Treatment Not on file documented as of this encounter Procedures Procedure Name Priority Date/Time Associated Diagnosis Comments CBC WITH DIFFERENTIAL Routine 12/06/2022 4:50 PM SANITATION LEAD documented in this encounter Results * (ABNORMAL) CBC WITH DIFFERENTIAL (12/06/2022 4:50 PM SANITATION LEAD) WBC 7.0 4.8 - 10.8 K/uL 12/06/2022 6:27 PM SANITATION LEAD [facility] LABORATORY [facility] RBC 3.23(L) 4.60 - 6.20 M/uL 12/06/2022 6:27 PM SANITATION LEAD [facility] LABORATORY [facility] HEMOGLOBIN 9.6(L) 14.0 - 18.0 g/dL 12/06/2022 6:27 PM [facility] HEMATOCRIT 31.3(L) 41.0 - 53.0 % 12/06/2022 6:27 PM [facility] MCV 96.9 84.0 - 103.0 fL 12/06/2022 6:27 PM [facility] MCH 29.7 27.0 - 34.0 pg 12/06/2022 6:27 PM [facility] MCHC 30.7 30.0 - 35.0 g/dL 12/06/2022 6:27 PM [facility] RDW 16.9(H) 11.0 - 14.5 % 12/06/2022 6:27 PM [facility] RDW-STDEV 60.0(H) 37.0 - 54.0 fL 12/06/2022 6:27 PM [facility] PLATELETS 247 140 - 440 K/uL 12/06/2022 6:27 PM [facility] MPV 10.5 8.9 - 12.8 fL 12/06/2022 6:27 PM [facility] NEUTROPHILS 57 42 - 75 % 12/06/2022 6:27 PM [facility] LYMPHOCYTES 20(L) 24 - 44 % 12/06/2022 6:27 PM [facility] MONOCYTES 11(H) 2 - 10 % 12/06/2022 6:27 PM [facility] EOSINOPHILS 11(H) 0 - 7 % 12/06/2022 6:27 PM [facility] BASOPHILS 1 0 - 1 % 12/06/2022 6:27 PM [facility] IMMATURE GRANULOCYTES 0 0 - 2 % 12/06/2022 6:27 PM [facility] NEUTROPHIL ABSOLUTE 3.99 2.00 - 8.00 K/uL 12/06/2022 6:27 PM [facility] LYMPHOCYTE ABSOLUTE 1.43 1.20 - 4.00 K/uL 12/06/2022 6:27 PM [facility] MONOCYTE ABSOLUTE 0.77(H) 0.10 - 0.60 K/uL 12/06/2022 6:27 PM SANITATION LEAD [facility] LABORATORY [facility] EOSINOPHIL ABSOLUTE 0.76(H) 0.00 - 0.70 K/uL 12/06/2022 6:27 PM SANITATION LEAD [facility] BASOPHILS ABSOLUTE 0.04 0.00 - 0.20 K/uL 12/06/2022 6:27 PM SANITATION LEAD [facility] IMMATURE GRANULOCYTES ABSOLUTE 0.02 0.00 - 0.10 K/uL 12/06/2022 6:27 PM SANITATION LEAD [facility] Blood Collection / Unknown 12/06/2022 4:50 PM SANITATION LEAD 12/06/2022 6:16 PM SANITATION LEAD us Deborah Aguilar MD HEMATOLOGY ORDERABLES Final Res ult [facility] CLIA # [id number] [facility] [address] documented in this encounter Visit Diagnoses Not on filedocumented in this encounter Additional Health Concerns Infection Onset Date Last Indicated Resolved Time C Diff 11/17/2022 11/17/2022 01/16/2023 1:16 AM CDT documented as of this encounter Care Teams Meat Trimmer Relationship Specialty Start Date End Date Shant Ballesteros Jr., MD [address] [place] [address] PCP - General Family Practice 01/19/14 documented as of this encounter
--- OUTSIDE RECORDS SUMMARY | 2025-06-19 11:29 | XMS_ITS | Encounter Summary ---
Author Organization [employer] Address [address] [place] [address] Care Team Providers Care Clerical Administrative Assistant Name Role Phone Favian Maldonado MD, Shant Humphreys Primary Care Provider Encounter Details Date Type Department Care Team (Late st Contact Info) Description 12/02/2022 Lab Requisition [facility] Laboratory Services [address] [place] [address] Joelle David MD [address] [facility] [address] [place] [id number] Social History Tobacco Use Types Packs/Day Years Used Date Smoking Tobacco: Never Assessed Sex and Gender Information Value Date Recorded Sex Assigned at Not on file Legal Sex Male 9:45 AM COMMUNICATIONS ENGINEER Gender Identity Not on file Sexual Orientation Not on file documented as of this encounter Plan of Treatment Not on file documented as of this encounter Procedures Procedure Name Priority Date/Time Associated Diagnosis Comments C-REACTIVE PROTEIN Routine 12/02/2022 3: 50 AM COMMUNICATIONS ENGINEER documented in this encounter Results * (ABNORMAL) C-REACTIVE PROTEIN (12/02/2022 3:50 AM COMMUNICATIONS ENGINEER) CRP 19.3(H) 0.0 - 5.0 mg/L 12/02/2022 5:27 AM COMMUNICATIONS ENGINEER [facility] LABORATORY SERVICES [facility] Blood Collection / Unknown 12/02/2022 3:50 AM COMMUNICATIONS ENGINEER 12/02/2022 5:13 AM COMMUNICATIONS ENGINEER Joelle David MD CHEMISTRY ORDERABLES Final Resu lt [facility] SERVICES [facility] # [id number] [address] [facility] [place] [address] documented in this encounter Visit Diagnoses Not on filedocumented in this encounter Additional Health Concerns Infection Onset Date Last Indicated Resolved Time C Diff 11/17/2022 11/17/2022 01/16/2023 1:16 AM CDT documented as of this encounter Care Teams Clerical Administrative Assistant Relationship Specialty Start Date End Date Shant Ballesteros Jr., MD [address] [place] [address] PCP - General Family Practice 01/19/14 documented as of this encounter
--- OUTSIDE RECORDS SUMMARY | 2025-06-19 11:29 | XMS_ITS | Encounter Summary ---
Author Organization [facility] Address [address] [place] [address] Care Team Providers Care Wedding Day Coordinator Name Role Phone Favian Maldonado MD, Shant Humphreys Primary Care Provider Encounter Details Date Type Department Care Team (Late st Contact Info) Description 12/05/2022 Lab Requisition [facility] Laboratory Services [address] [place] [address] Low Amaya, DO [address] [place] [phone] Social History Tobacco Use Types Packs/Day Years Used Date Smoking Tobacco: Never Assessed Sex and Gender Information Value Date Recorded Sex Assigned at Not on file Legal Sex Male 9:45 AM GEOSCIENCE PROFESSOR Gender Identity Not on file Sexual Orientation Not on file documented as of this encounter Plan of Treatment Not on file documented as of this encounter Procedures Procedure Name Priority Date/Time Associated Diagnosis Comments PHOSPHORUS Routine 12/05/2022 3:30 AM GEOSCIENCE PROFESSOR MAGNESIUM LEVEL Routine 12/05/2022 3:30 AM GEOSCIENCE PROFESSOR documented in this encounter Results * MAGNESIUM LEVEL (12/05/2022 3:30 AM GEOSCIENCE PROFESSOR) MAGNESIUM 12/05/2022 7:00 AM GEOSCIENCE PROFESSOR [facility] LABORATORY SERVICES [facility] Comment: Contaminated specimen, called to [facility] Garcia This is a corrected result. Previous result was 1.7 mg/dL on 12/05/2022 at 0553 GEOSCIENCE PROFESSOR Blood Collection / Unknown 12/05/2022 3:30 AM GEOSCIENCE PROFESSOR 12/05/2022 5:21 AM GEOSCIENCE PROFESSOR Narrative [facility] - 12/05/2022 7:00 AM GEOSCIENCE PROFESSOR To be credited Contaminated specimen Low Finley Monique DO CHEMISTRY ORDERABLES Edited Result - Final Performing Organization Address City/[facility]/ZIP Co de Phone Number [facility] CLIA # [id number] [address] [facility] [place] [address] * PHOSPHORUS (12/05/2022 3:30 AM GEOSCIENCE PROFESSOR) PHOSPHORUS 12/05/2022 7:02 AM GEOSCIENCE PROFESSOR [facility] Comment: Contaminated specimen. To be credited, called to [facility]ble Garcia This is a corrected result. Previous result was 4.6 mg/dL on 12/05/2022 at 0553 [facility] Blood Collection / Unknown 12/05/2022 3:30 AM GEOSCIENCE PROFESSOR 12/05/2022 5:21 AM GEOSCIENCE PROFESSOR Low Finley Monique DO CHEMISTRY ORDERABLES Edited Result - Final Performing Organization Address [facility] Co de Phone Number [facility] CLIA # [id number] [id number] [place] [address] documented in this encounter Visit Diagnoses Not on filedocumented in this encounter Additional Health Concerns Infection Onset Date Last Indicated Resolved Time C Diff 11/17/2022 11/17/2022 01/16/2023 1:16 AM CDT documented as of this encounter Care Teams Wedding Day Coordinator Relationship Specialty Start Date End Date Shant Ballesteros Jr., MD [address] [place] [address] PCP - General Family Practice 01/19/14 documented as of this encounter
--- OUTSIDE RECORDS SUMMARY | 2025-06-19 11:29 | XMS_ITS | Encounter Summary ---
Author Organization [employer] Address 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 Gender Identity Not on file Sexual Orientation [...] CALCIUM IONIZED (12/10/2022 2:00 AM CDT) Pathologist [facility] CALCIUM IONIZED 5.4 4.7 - 5.5 mg/dL 12/11/2022 2:42 PM CDT [facility] Blood Collection / Unknown 12/10/2022 2:00 AM CDT 12/10/2022 7:02 AM CDT Narrative [facility] - 12/11/2022 2:42 PM CDT Performing Organization Information: Site ID: [place] Name: [employer] Address: [address] [place] [address] Director: Andrew Alvarado MD Low Amaya CHEMISTRY ORDERABLES Final R esult Performing Organization Address City/[facility]/ZIP Co de Phone Number [facility] * MAGNESIUM LEVEL (12/10/2022 2:00 AM CDT) [facility] MAGNESIUM 2.0 1.6 - 2.4 mg/dL 12/10/2022 7:38 AM CDT [facility] Blood Collection / Unknown 12/10/2022 2:00 AM CDT 12/10/2022 7:02 AM CDT Low Amaya CHEMISTRY ORDERABLES Final R esult Performing Organization Address City/[facility]/ZIP Co de Phone Number [facility] CLIA # [id number] [address] [address] [place] [address] * (ABNORMAL) TRIGLYCERIDE (12/10/2022 2:00 AM CDT) [facility] TRIGLYCERIDE 202(H) <150 mg/dL 12/10/2022 7:38 AM CDT [facility] Blood Collection / Unknown 12/10/2022 2:00 AM CDT 12/10/2022 7:02 AM CDT Narrative [facility] - 12/10/2022 7:38 AM CDT TRIGLYCERIDES mg/dL Normal < 150 Borderline High 150 - 199 High 200 - 499 Very High >= 500 Based on AHA/NCEP Guidelines. Low Amaya DO CHEMISTRY ORDERABLES Final R esult Performing Organization Address City/[facility]/ZIP Co de Phone Number [facility] CLIA # [id number] [address] [address] * PHOSPHORUS (12/10/2022 2:00 AM CDT) [facility] PHOSPHORUS 3.5 2.5 - 4.5 mg/dL 12/10/2022 7:38 AM CDT [facility] Blood Collection / Unknown 12/10/2022 2:00 AM CDT 12/10/2022 7:02 AM CDT Low Amaya DO CHEMISTRY ORDERABLES Final R critical access hospital Performing Organization Address [facility] Co de Phone Number [facility] CLIA # [id number] [address] [address] * (ABNORMAL) CBC WITH DIFFERENTIAL (12/10/2022 2:00 AM CDT) [facility] WBC 7.0 4.8 - 10.8 K/uL 12/10/2022 7:10 AM CDT [facility] RBC 3.23(L) 4.60 - 6.20 M/uL 12/10/2022 7:10 AM CDT [facility] HEMOGLOBIN 9.7(L) 14.0 - 18.0 g/dL 12/10/2022 7:10 AM CDT [facility] HEMATOCRIT 31.3(L) 41.0 - 53.0 % 12/10/2022 7:10 AM [facility] MCV 96.9 84.0 - 103.0 fL 12/10/2022 7:10 AM [facility] MCH 30.0 27.0 - 34.0 pg 12/10/2022 7:10 AM [facility] MCHC 31.0 30.0 - 35.0 g/dL 12/10/2022 7:10 AM [facility] RDW 16.3(H) 11.0 - 14.5 % 12/10/2022 7:10 AM [facility] RDW-STDEV 58.5(H) 37.0 - 54.0 fL 12/10/2022 7:10 AM [facility] PLATELETS 236 140 - 440 K/uL 12/10/2022 7:10 AM [facility] MPV 11.2 8.9 - 12.8 fL 12/10/2022 7:10 AM [facility] NEUTROPHILS 56 42 - 75 % 12/10/2022 7:10 AM [facility] LYMPHOCYTES 20(L) 24 - 44 % 12/10/2022 7:10 AM [facility] MONOCYTES 14(H) 2 - 10 % 12/10/2022 7:10 AM [facility] EOSINOPHILS 7 0 - 7 % 12/10/2022 7:10 AM [facility] BASOPHILS 1 0 - 1 % 12/10/2022 7:10 AM [facility] IMMATURE GRANULOCYTES 1 0 - 2 % 12/10/2022 7:10 AM [facility] NEUTROPHIL ABSOLUTE 3.94 2.00 - 8.00 K/uL 12/10/2022 7:10 AM [facility] LYMPHOCYTE ABSOLUTE 1.42 1.20 - 4.00 K/uL 12/10/2022 7:10 AM [facility] MONOCYTE ABSOLUTE 1.01(H) 0.10 - 0.60 K/uL 12/10/2022 7:10 AM [facility] EOSINOPHIL ABSOLUTE 0.52 0.00 - 0.70 K/uL 12/10/2022 7:10 AM CDT [facility] BASOPHILS ABSOLUTE 0.06 0.00 - 0.20 K/uL 12/10/2022 7:10 AM CDT [facility] IMMATURE GRANULOCYTES ABSOLUTE 0.04 0.00 - 0.10 K/uL 12/10/2022 7:10 AM T [facility] Blood Collection / Unknown 12/10/2022 2:00 AM CDT 12/10/2022 7:02 AM CDT us Low Amaya DO HEMATOLOGY ORDERABLES Final Result [facility] CLIA # [id number] [address] [place] [address] * (ABNORMAL) COMPREHENSIVE METABOLIC PANEL (12/10/2022 2:00 AM CDT) SODIUM 136 136 - 145 mmol/L 12/10/2022 7:38 AM [facility] POTASSIUM 4.4 3.5 - 5.1 mmol/L 12/10/2022 7:38 AM [facility] CHLORIDE 102 98 - 107 mmol/L 12/10/2022 7:38 AM [facility] CO2 26 22 - 29 mmol/L 12/10/2022 7:38 AM [facility] CALCIUM 10.0 8.8 - 10.2 mg/dL 12/10/2022 7:38 AM [facility] BUN 35(H) 8 - 23 mg/dL 12/10/2022 7:38 AM [facility] CREATININE 0.94 0.67 - 1.17 mg/dL 12/10/2022 7:38 AM T [facility] GLUCOSE 117(H) 74 - 99 mg/dL 12/10/2022 7:38 AM [facility] TOTAL PROTEIN 7.0 6.4 - 8.3 g/dL 12/10/2022 7:38 AM T [facility] ALBUMIN 3.3(L) 3.5 - 5.2 g/dL 12/10/2022 7:38 AM T [facility] BILIRUBIN TOTAL 0.2 0.2 - 1.0 mg/dL 12/10/2022 7:38 AM T [facility] ALKALINE PHOSPHATASE 113 40 - 129 U/L 12/10/2022 7:38 AM T [facility] AST 17 10 - 50 U/L 12/10/2022 7:38 AM T [facility] ALT 16 <=50 U/L 12/10/2022 7:38 AM T [facility] GFR >60 >=60 mL/min/1.7 3 sq meter 12/10/2022 7:38 AM [facility] Comment:eGFR calculated with 2020 CKD-EPI equation. Vegetarian diet, extremely high or low muscle mass, and may affect results. Cystatin C with Glomerular Filtration Rate is a suitable alternative for these patients. ANION GAP 8(L) 9 - 20 mmol/L 12/10/2022 7:38 AM T [facility] Blood Collection / Unknown 12/10/2022 2:00 AM CDT 12/10/2022 7:02 AM CDT Low Amaya DO CHEMISTRY ORDERABLES Final R esult [facility] CLIA # [id number] [address] [id number] documented in this encounter Visit Diagnoses Not on filedocumented in this encounter Additional Health Concerns Infection Onset Date Last Indicated Resolved Time C Diff 11/17/2022 11/17/2022 01/16/2023 1:16 AM CDT documented as of this encounter Care Teams Hog Handler Relationship Specialty Start Date End Date Shant Ballesteros Jr., MD [address] [place] [address] PCP - General Family Practice 01/19/14 documented as of this encounter
--- OUTSIDE RECORDS SUMMARY | 2025-06-19 11:29 | XMS_ITS | Encounter Summary ---
Author Organization [facility] Address [address] [place] [address] Care Team Providers Care Vacuum Forming Machine Operator Name Role Phone Favian Maldonado MD, Shant Humphreys Primary Care Provider Encounter Details Date Type Department Care Team (Late st Contact Info) Description 11/25/2022 Lab Requisition [facility] Services [address] [place] [address] Esther Sarmiento MD [address] [place] [address] Social History Tobacco Use Types Packs/Day Years Used Date Smoking Tobacco: Never Assessed Sex and Gender Information Value Date Recorded Sex Assigned at Not on file Legal Sex Male 9:45 AM SNOWBLOWER MECHANIC Gender Identity Not on file Sexual Orientation Not on file documented as of this encounter Plan of Treatment Not on file documented as of this encounter Procedures Procedure Name Priority Date/Time Associated Diagnosis Comments BRAIN NATRIURETIC PEPTIDE, BNP OR PROBNP Routine 11/25/2022 1:40 AM SNOWBLOWER MECHANIC documented in this encounter Results * (ABNORMAL) BRAIN NATRIURETIC PEPTIDE, BNP OR PROBNP (11/25/2022 1:40 AM SNOWBLOWER MECHANIC) PROBNP, N TERMINAL 2,221(H) 0 - 125 pg/mL 11/25/2022 6:17 AM SNOWBLOWER MECHANIC [facility] Blood Collection / Unknown 11/25/2022 1:40 AM SNOWBLOWER MECHANIC 11/25/2022 6:02 AM SNOWBLOWER MECHANIC Esther Sarmiento MD CHEMISTRY ORDERABLES Final Resul t Performing Organization Address City/State/[facility] Co de Phone Number [facility] # [id number] [address] [address] [place] [address] documented in this encounter Visit Diagnoses Not on filedocumented in this encounter Additional Health Concerns Infection Onset Date Last Indicated Resolved Time C Diff 11/17/2022 11/17/2022 01/16/2023 1:16 AM CDT documented as of this encounter Care Teams Vacuum Forming Machine Operator Relationship Specialty Start Date End Date Shant Ballesteros Jr., MD [address] [place] [address] PCP - General Family Practice 01/19/14 documented as of this encounter
--- OUTSIDE RECORDS SUMMARY | 2025-06-19 11:29 | XMS_ITS | Encounter Summary ---
Author Organization [facility] Address 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 Gender Identity Not on file Sexual Orientation Not on file documented as of this encounter Plan of Treatment Not on file documented as of this encounter Procedures Procedure Name Priority Date/Time Associated Diagnosis Comments EXTRA TUBE (GREEN) Routine 12/06/2022 3:00 AM CONSTRUCTION JOB COST ESTIMATOR documented in this encounter Results * EXTRA TUBE (GREEN) (12/06/2022 3:00 AM CONSTRUCTION JOB COST ESTIMATOR) Blood Collection / Unknown 12/06/2022 3:00 AM CONSTRUCTION JOB COST ESTIMATOR 12/06/2022 7:33 AM CONSTRUCTION JOB COST ESTIMATOR us Esther Sarmiento MD CHEMISTRY ORDERABLES Final Resul t [facility] CLIA # [id number] [address] [facility] [place] [address] documented in this encounter Visit Diagnoses Not on filedocumented in this encounter Additional Health Concerns Infection Onset Date Last Indicated Resolved Time C Diff 11/17/2022 11/17/2022 01/16/2023 1:16 AM CDT documented as of this encounter Care Teams Supervisor Pre Wave Relationship Specialty Start Date End Date Shant Ballesteros Jr., MD [address] [place] [address] PCP - General Family Practice 01/19/14 documented as of this encounter
--- OUTSIDE RECORDS SUMMARY | 2025-06-19 11:29 | XMS_ITS | Encounter Summary ---
Author Organization [facility] Address [address] [place] [address] Care Team Providers Care Or Scrub Tech Name Role Phone Favian Maldonado MD, Shant Humphreys Primary Care Provider Encounter Details Date Type Department Care Team (Late st Contact Info) Description 11/29/2022 Lab Requisition [facility] Laboratory Services [address] [place] [address] Andre Mary, MADHU [address] [facility] [address] [place] [address] Social History Tobacco Use Types Packs/Day Years Used Date Smoking Tobacco: Never Assessed Sex and Gender Information Value Date Recorded Sex Assigned at Not on file Legal Sex Male 9:45 AM TICKET DISPENSER CHANGER Gender Identity Not on file Sexual Orientation Not on file documented as of this encounter Plan of Treatment Not on file documented as of this encounter Procedures Procedure Name Priority Date/Time Associated Diagnosis Comments CBC WITH DIFFERENTIAL Routine 11/29/2022 4:15 AM TICKET DISPENSER CHANGER documented in this encounter Results * (ABNORMAL) CBC WITH DIFFERENTIAL (11/29/2022 4:15 AM TICKET DISPENSER CHANGER) WBC 6.6 4.8 - 10.8 K/uL 11/29/2022 7:02 AM TICKET DISPENSER CHANGER [facility] RBC 2.98(L) 4.60 - 6.20 M/uL 11/29/2022 7:02 AM TICKET DISPENSER CHANGER [facility] HEMOGLOBIN 9.0(L) 14.0 - 18.0 g/dL 11/29/2022 7:02 AM [facility] HEMATOCRIT 29.9(L) 41.0 - 53.0 % 11/29/2022 7:02 AM [facility] MCV 100.3 84.0 - 103.0 fL 11/29/2022 7:02 AM [facility] MCH 30.2 27.0 - 34.0 pg 11/29/2022 7:02 AM [facility] MCHC 30.1 30.0 - 35.0 g/dL 11/29/2022 7:02 AM [facility] RDW 18.0(H) 11.0 - 14.5 % 11/29/2022 7:02 AM [facility] RDW-STDEV 65.1(H) 37.0 - 54.0 fL 11/29/2022 7:02 AM [facility] PLATELETS 226 140 - 440 K/uL 11/29/2022 7:02 AM [facility] MPV 10.5 8.9 - 12.8 fL 11/29/2022 7:02 AM [facility] NEUTROPHILS 67 42 - 75 % 11/29/2022 7:02 AM [facility] LYMPHOCYTES 13(L) 24 - 44 % 11/29/2022 7:02 AM [facility] MONOCYTES 13(H) 2 - 10 % 11/29/2022 7:02 AM [facility] EOSINOPHILS 6 0 - 7 % 11/29/2022 7:02 AM [facility] BASOPHILS 1 0 - 1 % 11/29/2022 7:02 AM [facility] IMMATURE GRANULOCYTES 1 0 - 2 % 11/29/2022 7:02 AM [facility] NEUTROPHIL ABSOLUTE 4.47 2.00 - 8.00 K/uL 11/29/2022 7:02 AM [facility] LYMPHOCYTE ABSOLUTE 0.88(L) 1.20 - 4.00 K/uL 11/29/2022 7:02 AM [facility] MONOCYTE ABSOLUTE 0.85(H) 0.10 - 0.60 K/uL 11/29/2022 7:02 AM TICKET DISPENSER CHANGER [facility] EOSINOPHIL ABSOLUTE 0.37 0.00 - 0.70 K/uL 11/29/2022 7:02 AM [facility] BASOPHILS ABSOLUTE 0.04 0.00 - 0.20 K/uL 11/29/2022 7:02 AM [facility] IMMATURE GRANULOCYTES ABSOLUTE 0.03 0.00 - 0.10 K/uL 11/29/2022 7:02 AM [facility] Blood Collection / Unknown 11/29/2022 4:15 AM TICKET DISPENSER CHANGER 11/29/2022 6:48 AM TICKET DISPENSER CHANGER us Andre Mary DOG [facility] HEMATOLOGY ORDERABLES Fi nal Result [facility] CLIA # [id number] [address] [place] [address] documented in this encounter Visit Diagnoses Not on filedocumented in this encounter Additional Health Concerns Infection Onset Date Last Indicated Resolved Time C Diff 11/17/2022 11/17/2022 01/16/2023 1:16 AM CDT documented as of this encounter Care Teams Or Scrub Tech Relationship Specialty Start Date End Date Shant Ballesteros Jr., MD [address] [place] [address] PCP - General Family Practice 01/19/14 documented as of this encounter
--- OUTSIDE RECORDS SUMMARY | 2025-06-19 11:29 | XMS_ITS | Encounter Summary ---
Author Organization [facility] Address [address] [place] [address] Care Team Providers Care Multi Media Specialist Name Role Phone Favian Maldonado MD, Shant Humphreys Primary Care Provider Encounter Details Date Type Department Care Team (Late st Contact Info) Description 11/24/2022 Lab Requisition [facility] Laboratory Services [address] [place] [address] Andre Mary, MADHU [address] [facility] [address] [place] [address] Social History Tobacco Use Types Packs/Day Years Used Date Smoking Tobacco: Never Assessed Sex and Gender Information Value Date Recorded Sex Assigned at Not on file Legal Sex Male 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 Gender Identity Not on file Sexual Orientation Not on file documented as of this encounter Plan of Treatment Not on file documented as of this encounter Procedures Procedure Name Priority Date/Time Associated Diagnosis Comments URINALYSIS W/REFLEX MICROSCOPIC Stat 11/24/2022 9:45 PM TRUCK BENCH MECHANIC documented in this encounter Results * (ABNORMAL) URINALYSIS WITH REFLEX MICROSCOPIC (11/24/2022 9:45 PM TRUCK BENCH MECHANIC) COLOR UA Yellow Pale to Dark Yellow 11/24/2022 11:07 PM TRUCK BENCH MECHANIC [facility] CLARITY UA Clear Clear 11/24/2022 11:07 PM TRUCK BENCH MECHANIC [facility] SPECIFIC GRAVITY UA 1.012 1.003 - 1.035 11/24/2022 11:07 PM [facility] PH UA 5.0 5.0 - 8.0 11/24/2022 11:07 PM [facility] LEUKOCYTE ESTERASE UA Negative Negative 11/24/2022 11:07 PM [facility] NITRITE UA Negative Negative 11/24/2022 11:07 PM [facility] PROTEIN UA Negative Negative 11/24/2022 11:07 PM [facility] GLUCOSE UA Negative Negative 11/24/2022 11:07 PM [facility] KETONES UA Negative Negative 11/24/2022 11:07 PM [facility] UROBILINOGEN UA <2.0 <2.0 mg/dL 11:07 PM [facility] BILIRUBIN UA Negative Negative 11/24/2022 11:07 PM [facility] BLOOD UA 1+(A) Negative 11/24/2022 11:07 PM [facility] WBC UA 0-2 0 - 2 /hpf 11/24/2022 11:07 PM [facility] RBC UA 0-2 0 - 2 /hpf 11/24/2022 11:07 PM [facility] BACTERIA UA Negative Negative /hpf 11/24/2022 11:07 PM [facility] EPITHELIAL CELLS, URINE 0-5 0 - 5 /hpf 11/24/2022 11:07 PM [facility] Urine URINE SPECIMEN OBTAINED BY CLEAN CATCH PROCEDURE / Unknown Collection / Unknown 11/24/2022 9:45 PM TRUCK BENCH MECHANIC 11/24/2022 10:55 PM TRUCK BENCH MECHANIC us Andre Mary AQUATICS SPECIALIST URINE ORDERABLES Final R esult [facility] CLIA # [id number] [address] [id number] documented in this encounter Visit Diagnoses Not on filedocumented in this encounter Additional Health Concerns Infection Onset Date Last Indicated Resolved Time C Diff 11/17/2022 11/17/2022 01/16/2023 1:16 AM CDT documented as of this encounter Care Teams Multi Media Specialist Relationship Specialty Start Date End Date Shant Ballesteros Jr., MD [address] [place] [address] PCP - General Family Practice 01/19/14 documented as of this encounter
--- OUTSIDE RECORDS SUMMARY | 2025-06-19 11:29 | XMS_ITS | Encounter Summary ---
Author Organization [employer] Address [address] [place] [address] Care Team Providers Care Automotive Teacher Name Role Phone Favian Maldonado MD, Shant Humphreys Primary Care Provider Encounter Details Date Type Department Care Team (Late st Contact Info) Description 11/26/2022 Lab Requisition [facility] Laboratory Services [address] [place] [address] Low Amaya, DO [address] [place] [address] Social History Tobacco Use Types Packs/Day Years Used Date Smoking Tobacco: Never Assessed Sex and Gender Information Value Date Recorded Sex Assigned at Not on file Legal Sex Male 9:45 AM STAFF PSYCHOLOGIST Gender Identity Not on file Sexual Orientation Not on file documented as of this encounter Plan of Treatment Not on file documented as of this encounter Procedures Procedure Name Priority Date/Time Associated Diagnosis Comments CBC WITH DIFFERENTIAL Routine 11/26/2022 1:15 AM STAFF PSYCHOLOGIST TRIGLYCERIDE Routine 11/26/2022 1:15 AM STAFF PSYCHOLOGIST PHOSPHORUS Routine 11/26/2022 1:15 AM STAFF PSYCHOLOGIST MAGNESIUM LEVEL Routine 11/26/2022 1:15 AM STAFF PSYCHOLOGIST COMPREHENSIVE METABOLIC PANEL Routine 11/26/2022 1:15 AM STAFF PSYCHOLOGIST documented in this encounter Results * (ABNORMAL) TRIGLYCERIDE (11/26/2022 1:15 AM STAFF PSYCHOLOGIST) TRIGLYCERIDE 172(H) <150 mg/dL 11/26/2022 6:58 AM [facility] Blood Collection / Unknown 11/26/2022 1:15 AM STAFF PSYCHOLOGIST 11/26/2022 6:01 AM STAFF PSYCHOLOGIST Narrative [facility] - 11/26/2022 6:58 AM STAFF PSYCHOLOGIST TRIGLYCERIDES mg/dL Normal < 150 Borderline High 150 - 199 High 200 - 499 Very High >= 500 Based on AHA/NCEP Guidelines. Low Amaya DO CHEMISTRY ORDERABLES Final R [facility] Performing Organization Address City/Special Care Hospital/ZIP Co de Phone Number [facility] CLIA # [id number] [address] [id number] * PHOSPHORUS (11/26/2022 1:15 AM STAFF PSYCHOLOGIST) PHOSPHORUS 3.2 2.5 - 4.5 mg/dL 11/26/2022 6:58 AM [facility] Blood Collection / Unknown 11/26/2022 1:15 AM STAFF PSYCHOLOGIST 11/26/2022 6:01 AM STAFF PSYCHOLOGIST Low Amaya DO CHEMISTRY ORDERABLES Final R esult [facility] CLIA # [id number] [address] [place], [place] [address] * MAGNESIUM LEVEL (11/26/2022 1:15 AM STAFF PSYCHOLOGIST) MAGNESIUM 2.0 1.6 - 2.4 mg/dL 11/26/2022 6:58 AM STAFF PSYCHOLOGIST [facility] Blood Collection / Unknown 11/26/2022 1:15 AM STAFF PSYCHOLOGIST 11/26/2022 6:01 AM STAFF PSYCHOLOGIST us Low Amaya DO CHEMISTRY ORDERABLES Final R esult [facility] CLIA # [id number] [address] [facility] [place] [place] [address] * (ABNORMAL) CBC WITH DIFFERENTIAL (11/26/2022 1:15 AM STAFF PSYCHOLOGIST) [facility] WBC 6.1 4.8 - 10.8 K/uL 11/26/2022 6:14 AM [facility] RBC 2.61(L) 4.60 - 6.20 M/uL 11/26/2022 6:14 AM [facility] HEMOGLOBIN 7.8(L) 14.0 - 18.0 g/dL 11/26/2022 6:14 AM [facility] HEMATOCRIT 26.5(L) 41.0 - 53.0 % 11/26/2022 6:14 AM [facility] MCV 101.5 84.0 - 103.0 fL 11/26/2022 6:14 AM [facility] MCH 29.9 27.0 - 34.0 pg 11/26/2022 6:14 AM [facility] MCHC 29.4(L) 30.0 - 35.0 g/dL 11/26/2022 6:14 AM [facility] RDW 18.2(H) 11.0 - 14.5 % 11/26/2022 6:14 AM [facility] RDW-STDEV 66.1(H) 37.0 - 54.0 fL 11/26/2022 6:14 AM [facility] PLATELETS 222 140 - 440 K/uL 11/26/2022 6:14 AM [facility] MPV 10.6 8.9 - 12.8 fL 11/26/2022 6:14 AM [facility] NEUTROPHILS 63 42 - 75 % 11/26/2022 6:14 AM [facility] LYMPHOCYTES 18(L) 24 - 44 % 11/26/2022 6:14 AM [facility] MONOCYTES 13(H) 2 - 10 % 11/26/2022 6:14 AM [facility] EOSINOPHILS 5 0 - 7 % 11/26/2022 6:14 AM [facility] BASOPHILS 1 0 - 1 % 11/26/2022 6:14 AM [facility] IMMATURE GRANULOCYTES 1 0 - 2 % 11/26/2022 6:14 AM [facility] NEUTROPHIL ABSOLUTE 3.84 2.00 - 8.00 K/uL 11/26/2022 6:14 AM [facility] LYMPHOCYTE ABSOLUTE 1.09(L) 1.20 - 4.00 K/uL 11/26/2022 6:14 AM [facility] MONOCYTE ABSOLUTE 0.79(H) 0.10 - 0.60 K/uL 11/26/2022 6:14 AM [facility] EOSINOPHIL ABSOLUTE 0.32 0.00 - 0.70 K/uL 11/26/2022 6:14 AM [facility] BASOPHILS ABSOLUTE 0.04 0.00 - 0.20 K/uL 11/26/2022 6:14 AM [facility] IMMATURE GRANULOCYTES ABSOLUTE 0.03 0.00 - 0.10 K/uL 11/26/2022 6:14 AM [facility] Blood Collection / Unknown 11/26/2022 1:15 AM STAFF PSYCHOLOGIST 11/26/2022 6:01 AM [facility] us Low Amaya DO HEMATOLOGY ORDERABLES Final Result [facility] CLIA # [id number] [facility] [address] [place] [address] * (ABNORMAL) COMPREHENSIVE METABOLIC PANEL (11/26/2022 1:15 AM STAFF PSYCHOLOGIST) [facility] SODIUM 140 136 - 145 mmol/L 11/26/2022 6:58 AM [facility] POTASSIUM 3.9 3.5 - 5.1 mmol/L 11/26/2022 6:58 AM [facility] CHLORIDE 103 98 - 107 mmol/L 11/26/2022 6:58 AM [facility] CO2 30(H) 22 - 29 mmol/L 11/26/2022 6:58 AM [facility] CALCIUM 9.3 8.8 - 10.2 mg/dL 11/26/2022 6:58 AM [facility] BUN 34(H) 8 - 23 mg/dL 11/26/2022 6:58 AM [facility] CREATININE 1.08 0.67 - 1.17 mg/dL 11/26/2022 6:58 AM [facility] GLUCOSE 129(H) 74 - 99 mg/dL 11/26/2022 6:58 AM [facility] TOTAL PROTEIN 6.4 6.4 - 8.3 g/dL 11/26/2022 6:58 AM [facility] ALBUMIN 2.9(L) 3.5 - 5.2 g/dL 11/26/2022 6:58 AM [facility] BILIRUBIN TOTAL 0.3 0.2 - 1.0 mg/dL 11/26/2022 6:58 AM [facility] ALKALINE PHOSPHATASE 86 40 - 129 U/L 11/26/2022 6:58 AM [facility] AST 14 10 - 50 U/L 11/26/2022 6:58 AM [facility] ALT 10 <=50 U/L 11/26/2022 6:58 AM [facility] GFR >60 >=60 mL/min/1.7 3 sq meter 11/26/2022 6:58 AM [facility] Comment:eGFR calculated with 2020 CKD-EPI equation. Vegetarian diet, extremely high or low muscle mass, and may affect results. Cystatin C with Glomerular Filtration Rate is a suitable alternative for these patients. ANION GAP 7(L) 9 - 20 mmol/L 11/26/2022 6:58 AM STAFF PSYCHOLOGIST [facility] Blood Collection / Unknown 11/26/2022 1:15 AM STAFF PSYCHOLOGIST 11/26/2022 6:01 AM STAFF PSYCHOLOGIST Low Amaya DO CHEMISTRY ORDERABLES Final R esult [facility] CLIA # [id number] [facility] [address] documented in this encounter Visit Diagnoses Not on filedocumented in this encounter Additional Health Concerns Infection Onset Date Last Indicated Resolved Time C Diff 11/17/2022 11/17/2022 01/16/2023 1:16 AM CDT documented as of this encounter Care Teams Automotive Teacher Relationship Specialty Start Date End Date Shant Ballesteros Jr., MD [address] [place] [address] PCP - General Family Practice 01/19/14 documented as of this encounter
--- OUTSIDE RECORDS SUMMARY | 2025-06-19 11:29 | XMS_ITS | Encounter Summary ---
Author Organization [employer] Address [address] [place] [address] Care Team Providers Care Coater Name Role Phone Favian Maldonado MD, Shant Humphreys Primary Care Provider Encounter Details Date Type Department Care Team (Late st Contact Info) Description 11/25/2022 Lab Requisition [facility] Laboratory Services [address] [place] [address] Andre Mary, MADHU [address] [facility] [address] [place] [address] Social History Tobacco Use Types Packs/Day Years Used Date Smoking Tobacco: Never Assessed Sex and Gender Information Value Date Recorded Sex Assigned at Not on file Legal Sex Male 9:45 AM TIME ANALYSIS CLERK Gender Identity Not on file Sexual Orientation Not on file documented as of this encounter Plan of Treatment Not on file documented as of this encounter Procedures Procedure Name Priority Date/Time Associated Diagnosis Comments RESPIRATORY PATHOGEN PCR PANEL Routine 11/25/2022 9:47 AM TIME ANALYSIS CLERK documented in this encounter Results * RESPIRATORY PATHOGEN PCR PANEL (11/25/2022 9:47 AM TIME ANALYSIS CLERK) Respiratory Pathogen PCR Panel NOT DETECTED No respiratory pathogen nucleic acids detected. 11/25/2022 11:29 AM TIME ANALYSIS CLERK [facility] [employer] [facility] COVID-19 PCR NOT DETECTED Not Detected 11/25/2022 11:29 AM TIME ANALYSIS CLERK [facility] Upper Respiratory ENTIRE NASOPHARYNX / Unknown Collection / Unknown 11/25/2022 9:47 AM TIME ANALYSIS CLERK 11/25/2022 10:36 AM TIME ANALYSIS CLERK Narrative [facility] - 11/25/2022 11:29 AM TIME ANALYSIS CLERK The Film Array Respiratory Panel (RP2.1) is [...] parapertussis Chlamydophila pneumoniae Mycoplasma pneumoniae Andre Mary CUSHION INSTALLER MICROBIOLOGY - GENERAL O RDERABLES Final [id number] [address] [place] [address] documented in this encounter Visit Diagnoses Not on filedocumented in this encounter Additional Health Concerns Infection Onset Date Last Indicated Resolved Time C Diff 11/17/2022 11/17/2022 01/16/2023 1:16 AM CDT documented as of this encounter Care Teams Coater Relationship Specialty Start Date End Date Shant Ballesteros Jr., MD [address] [place] [address] PCP - General Family Practice 01/19/14 documented as of this encounter
--- OUTSIDE RECORDS SUMMARY | 2025-06-19 11:29 | XMS_ITS | Encounter Summary ---
Author Organization [employer] [facility] Address [address] [place] [address] Care Team Providers Care Pierogi Maker Name Role Phone Favian Maldonado MD, Shant Humphreys Primary Care Provider Encounter Details Date Type Department Care Team (Late st Contact Info) Description 11/26/2022 Lab Requisition [facility] Laboratory Services [address] [place] [address] Low Amaya, DO [address] [place] [address] Social History Tobacco Use Types Packs/Day Years Used Date Smoking Tobacco: Never Assessed Sex and Gender Information Value Date Recorded Sex Assigned at Not on file Legal Sex Male 9:45 AM POLITICAL SCIENTIST Gender Identity Not on file Sexual Orientation Not on file documented as of this encounter Plan of Treatment Not on file documented as of this encounter Procedures Procedure Name Priority Date/Time Associated Diagnosis Comments CALCIUM IONIZED Routine 11/26/2022 6:20 AM POLITICAL SCIENTIST documented in this encounter Results * CALCIUM IONIZED (11/26/2022 6:20 AM POLITICAL SCIENTIST) CALCIUM IONIZED 5.3 4.8 - 5.6 mg/dL 11/27/2022 9:49 AM POLITICAL SCIENTIST [facility] Blood Collection / Unknown 11/26/2022 6:20 AM POLITICAL SCIENTIST 11/26/2022 9:28 AM POLITICAL SCIENTIST Narrative [facility] - 11/27/2022 9:49 AM POLITICAL SCIENTIST Performing Organization Information: Site ID: [id number] Name: [facility] Address: [address] [address] Director: Andrew Alvarado MD us Low Amaya DO CHEMISTRY ORDERABLES Final R esult [facility] documented in this encounter Visit Diagnoses Not on filedocumented in this encounter Additional Health Concerns Infection Onset Date Last Indicated Resolved Time C Diff 11/17/2022 11/17/2022 01/16/2023 1:16 AM CDT documented as of this encounter Care Teams Pierogi Maker Relationship Specialty Start Date End Date Shant Ballesteros Jr., MD [address] [place] [address] PCP - General Family Practice 01/19/14 documented as of this encounter
--- NOTE | 2025-06-19 11:30 | ECG_ITS ---
[employer] Test Date: 2025-06-19 Pat Name: Charan Voss Department: Room: Gender: Male Dental Professional: : 1955 Requested By: Donato Chance Order Number: [id number] Richard MD: Lance Feliz M.D. Measurements Intervals [place] Rate: 62 P: 0 NH: 0 QRS: -14 QRSD: 113 T: 72 QT: 416 QTc: 425 Interpretive Statements ATRIAL FIBRILLATION SEPTAL MYOCARDIAL INFARCTION , OF INDETERMINATE AGE [40+ ms Q WAVE IN V1/V2] Compared to ECG 06/14/2025 17:09:14 No significant changes Electronically Signed On 06-19-2025 13:02:29 CDT by Lance Feliz M.D. [email or web address]
--- OUTSIDE RECORDS SUMMARY | 2025-06-19 11:30 | XMS_ITS | Clinical Summary ---
Author Organization [facility] Address [address] Lara: Epic Prelude ADT JU[place] MAHARAJ [address] Care Team Providers Care Sustainable Design Consultant Name Role Phone Favian Maldonado MD, [...] 01/04/20 23 Active naloxone (NARCAN) 4 mg/spray [place], Non-Aerosol EMERGENCY USE ONLY: Administer 1 spray [...] 12/21/2022 Immunizations Immunization Administration Dates Next Due (iSkoot)(12 YR UP) COVID-19 VACCINE - EMERGENCY USE AUTHORIZATION, MRNA, [id number](PF) 30 MCG/0.3 ML IM SUSP 11/09/2022 (PNEUMOVAX [...] on file Legal Sex Male 9:45 [address] STREETCAR MOTORMAN Gender Identity Not on file Sexual Orientation [...] (1 - 1-dose 75+ series) 2030 Insurance [facility] MEDICARE HMO Advance Directives For more information, please contact: [phone] * Full Code (Latest Code Status on File) Date Activated Date Inactivated Comments 12/21/2022 9:43 PM 01/03/2023 3:13 PM Care Teams Sustainable Design Consultant Relationship Specialty Start Date End Date Shant Ballesteros Jr., MD [address] [place] [address] PCP - General Family Practice 01/19/14
--- OUTSIDE RECORDS SUMMARY | 2025-06-19 11:30 | XMS_ITS | Encounter Summary ---
Author Organization [facility] Address [address] [place] [address] Care Team Providers Care Pipe Out Worker Name Role Phone Favian Maldonado MD, Shant Humphreys Primary Care Provider Encounter Details Date Type Department Care Team (Late st Contact Info) Description 11/10/2022 Lab Requisition [facility] Laboratory Services [address] [place] [address] Soni Jeffery MD [address] [place] [address] Social History Tobacco Use Types Packs/Day Years Used Date Smoking Tobacco: Never Assessed Sex and Gender Information Value Date Recorded Sex Assigned at Not on file Legal Sex Male 9:45 AM NEUROSURGICAL NURSE PRACTITIONER Gender Identity Not on file Sexual Orientation Not on file documented as of this encounter Plan of Treatment Not on file documented as of this encounter Procedures Procedure Name Priority Date/Time Associated Diagnosis Comments CBC WITH DIFFERENTIAL Stat 11/10/2022 2:20 PM NEUROSURGICAL NURSE PRACTITIONER documented in this encounter Results * (ABNORMAL) CBC WITH DIFFERENTIAL (11/10/2022 2:20 PM NEUROSURGICAL NURSE PRACTITIONER) WBC 5.2 4.8 - 10.8 K/uL 11/10/2022 3:18 PM NEUROSURGICAL NURSE PRACTITIONER [facility] RBC 2.60(L) 4.60 - 6.20 M/uL 11/10/2022 3:18 PM NEUROSURGICAL NURSE PRACTITIONER [facility] HEMOGLOBIN 7.6(L) 14.0 - 18.0 g/dL 11/10/2022 3:18 PM [facility] HEMATOCRIT 25.3(L) 41.0 - 53.0 % 11/10/2022 3:18 PM [facility] MCV 97.3 84.0 - 103.0 fL 11/10/2022 3:18 PM [facility] MCH 29.2 27.0 - 34.0 pg 11/10/2022 3:18 PM [facility] MCHC 30.0 30.0 - 35.0 g/dL 11/10/2022 3:18 PM [facility] RDW 15.8(H) 11.0 - 14.5 % 11/10/2022 3:18 PM [facility] RDW-STDEV 56.3(H) 37.0 - 54.0 fL 11/10/2022 3:18 PM [facility] PLATELETS 249 140 - 440 K/uL 11/10/2022 3:18 PM [facility] MPV 11.0 8.9 - 12.8 fL 11/10/2022 3:18 PM [facility] NEUTROPHILS 62 42 - 75 % 11/10/2022 3:18 PM [facility] LYMPHOCYTES 15(L) 24 - 44 % 11/10/2022 3:18 PM [facility] MONOCYTES 17(H) 2 - 10 % 11/10/2022 3:18 PM [facility] EOSINOPHILS 6 0 - 7 % 11/10/2022 3:18 PM [facility] BASOPHILS 1 0 - 1 % 11/10/2022 3:18 PM [facility] IMMATURE GRANULOCYTES 1 0 - 2 % 11/10/2022 3:18 PM [facility] NEUTROPHIL ABSOLUTE 3.22 2.00 - 8.00 K/uL 11/10/2022 3:18 PM [facility] LYMPHOCYTE ABSOLUTE 0.78(L) 1.20 - 4.00 K/uL 11/10/2022 3:18 PM [facility] MONOCYTE ABSOLUTE 0.87(H) 0.10 - 0.60 K/uL 11/10/2022 3:18 PM NEUROSURGICAL NURSE PRACTITIONER [facility] EOSINOPHIL ABSOLUTE 0.30 0.00 - 0.70 K/uL 11/10/2022 3:18 PM NEUROSURGICAL NURSE PRACTITIONER [facility] BASOPHILS ABSOLUTE 0.03 0.00 - 0.20 K/uL 11/10/2022 3:18 PM NEUROSURGICAL NURSE PRACTITIONER [facility] IMMATURE GRANULOCYTES ABSOLUTE 0.03 0.00 - 0.10 K/uL 11/10/2022 3:18 PM NEUROSURGICAL NURSE PRACTITIONER [facility] Blood Collection / Unknown 11/10/2022 2:20 PM NEUROSURGICAL NURSE PRACTITIONER 11/10/2022 3:09 PM NEUROSURGICAL NURSE PRACTITIONER Soni Jeffery MD HEMATOLOGY ORDERABLES Final Resu lt [facility] CLIA # [id number] [facility] [address] documented in this encounter Visit Diagnoses Not on filedocumented in this encounter Additional Health Concerns Infection Onset Date Last Indicated Resolved Time C Diff 11/17/2022 11/17/2022 01/16/2023 1:16 AM CDT documented as of this encounter Care Teams Pipe Out Worker Relationship Specialty Start Date End Date Shant Ballesteros Jr., MD [address] [place] [address] PCP - General Family Practice 01/19/14 documented as of this encounter
--- OUTSIDE RECORDS SUMMARY | 2025-06-19 11:30 | XMS_ITS | Encounter Summary ---
Author Organization [facility] Address [address] [place] [address] Care Team Providers Care Casting Machine Adjuster Name Role Phone Favian Maldonado MD, Shant Humphreys Primary Care Provider Encounter Details Date Type Department Care Team (Late st Contact Info) Description 11/20/2022 Lab Requisition [facility] Laboratory Services [address] [place] [address] Andre Mary, MADHU [address] [facility] [address] [place] [address] Social History Tobacco Use Types Packs/Day Years Used Date Smoking Tobacco: Never Assessed Sex and Gender Information Value Date Recorded Sex Assigned at Not on file Legal Sex Male 9:45 AM PERSONNEL ADVISER Gender Identity Not on file Sexual Orientation Not on file documented as of this encounter Plan of Treatment Not on file documented as of this encounter Procedures Procedure Name Priority Date/Time Associated Diagnosis Comments CBC WITH DIFFERENTIAL Routine 11/20/2022 3:55 PM PERSONNEL ADVISER documented in this encounter Results * (ABNORMAL) CBC WITH DIFFERENTIAL (11/20/2022 3:55 PM PERSONNEL ADVISER) WBC 7.3 4.8 - 10.8 K/uL 11/20/2022 4:35 PM PERSONNEL ADVISER [facility] RBC 2.66(L) 4.60 - 6.20 M/uL 11/20/2022 4:35 PM PERSONNEL ADVISER [facility] HEMOGLOBIN 8.0(L) 14.0 - 18.0 g/dL 11/20/2022 4:35 PM [facility] HEMATOCRIT 27.1(L) 41.0 - 53.0 % 11/20/2022 4:35 PM [facility] MCV 101.9 84.0 - 103.0 fL 11/20/2022 4:35 PM [facility] MCH 30.1 27.0 - 34.0 pg 11/20/2022 4:35 PM [facility] MCHC 29.5(L) 30.0 - 35.0 g/dL 11/20/2022 4:35 PM [facility] RDW 17.7(H) 11.0 - 14.5 % 11/20/2022 4:35 PM [facility] RDW-STDEV 62.4(H) 37.0 - 54.0 fL 11/20/2022 4:35 PM [facility] PLATELETS 302 140 - 440 K/uL 11/20/2022 4:35 PM [facility] MPV 9.6 8.9 - 12.8 fL 11/20/2022 4:35 PM [facility] NEUTROPHILS 68 42 - 75 % 11/20/2022 4:35 PM [facility] LYMPHOCYTES 15(L) 24 - 44 % 11/20/2022 4:35 PM [facility] MONOCYTES 12(H) 2 - 10 % 11/20/2022 4:35 PM [facility] EOSINOPHILS 3 0 - 7 % 11/20/2022 4:35 PM [facility] BASOPHILS 0 0 - 1 % 11/20/2022 4:35 PM [facility] IMMATURE GRANULOCYTES 1 0 - 2 % 11/20/2022 4:35 PM [facility] NEUTROPHIL ABSOLUTE 5.00 2.00 - 8.00 K/uL 11/20/2022 4:35 PM [facility] LYMPHOCYTE ABSOLUTE 1.06(L) 1.20 - 4.00 K/uL 11/20/2022 4:35 PM PERSONNEL ADVISER [facility] MONOCYTE ABSOLUTE 0.91(H) 0.10 - 0.60 K/uL 11/20/2022 4:35 PM PERSONNEL ADVISER [facility] EOSINOPHIL ABSOLUTE 0.22 0.00 - 0.70 K/uL 11/20/2022 4:35 PM [facility] BASOPHILS ABSOLUTE 0.02 0.00 - 0.20 K/uL 11/20/2022 4:35 PM [facility] IMMATURE GRANULOCYTES ABSOLUTE 0.10 0.00 - 0.10 K/uL 11/20/2022 4:35 PM [facility] Blood Collection / Unknown 11/20/2022 3:55 PM PERSONNEL ADVISER 11/20/2022 4:30 PM PERSONNEL ADVISER us Andre Mary PHP ENGINEER HEMATOLOGY ORDERABLES Fi nal Result [facility] CLIA # [id number] [facility] [address] documented in this encounter Visit Diagnoses Not on filedocumented in this encounter Additional Health Concerns Infection Onset Date Last Indicated Resolved Time C Diff 11/17/2022 11/17/2022 01/16/2023 1:16 AM CDT documented as of this encounter Care Teams Casting Machine Adjuster Relationship Specialty Start Date End Date Shant Ballesteros Jr., MD [address] [place] [address] PCP - General Family Practice 01/19/14 documented as of this encounter
--- OUTSIDE RECORDS SUMMARY | 2025-06-19 11:30 | XMS_ITS | Encounter Summary ---
Author Organization [employer] [facility] Address [address] [place] [address] Care Team Providers Care Rib Cloth Knitter Name Role Phone Favian Maldonado MD, Shant Humphreys Primary Care Provider Encounter Details Date Type Department Care Team (Late st Contact Info) Description 11/22/2022 Lab Requisition [facility] Laboratory Services [address] [place] [address] Low Amaya, DO [address] [place] [address] Social History Tobacco Use Types Packs/Day Years Used Date Smoking Tobacco: Never Assessed Sex and Gender Information Value Date Recorded Sex Assigned at Not on file Legal Sex Male 9:45 AM MEDICAL PRACTICE ADMINISTRATOR Gender Identity Not on file Sexual Orientation Not on file documented as of this encounter Plan of Treatment Not on file documented as of this encounter Procedures Procedure Name Priority Date/Time Associated Diagnosis Comments CBC WITH DIFFERENTIAL Routine 11/22/2022 4:14 AM MEDICAL PRACTICE ADMINISTRATOR documented in this encounter Results * (ABNORMAL) CBC WITH DIFFERENTIAL (11/22/2022 4:14 AM MEDICAL PRACTICE ADMINISTRATOR) WBC 6.6 4.8 - 10.8 K/uL 11/22/2022 7:49 AM MEDICAL PRACTICE ADMINISTRATOR [facility] RBC 2.65(L) 4.60 - 6.20 M/uL 11/22/2022 7:49 AM MEDICAL PRACTICE ADMINISTRATOR [facility] HEMOGLOBIN 7.9(L) 14.0 - 18.0 g/dL 11/22/2022 7:49 AM [facility] HEMATOCRIT 26.8(L) 41.0 - 53.0 % 11/22/2022 7:49 AM [facility] MCV 101.1 84.0 - 103.0 fL 11/22/2022 7:49 AM [facility] MCH 29.8 27.0 - 34.0 pg 11/22/2022 7:49 AM [facility] MCHC 29.5(L) 30.0 - 35.0 g/dL 11/22/2022 7:49 AM [facility] RDW 18.6(H) 11.0 - 14.5 % 11/22/2022 7:49 AM [facility] RDW-STDEV 66.0(H) 37.0 - 54.0 fL 11/22/2022 7:49 AM [facility] PLATELETS 298 140 - 440 K/uL 11/22/2022 7:49 AM [facility] MPV 9.8 8.9 - 12.8 fL 11/22/2022 7:49 AM [facility] NEUTROPHILS 67 42 - 75 % 11/22/2022 7:49 AM [facility] LYMPHOCYTES 14(L) 24 - 44 % 11/22/2022 7:49 AM [facility] MONOCYTES 11(H) 2 - 10 % 11/22/2022 7:49 AM [facility] EOSINOPHILS 6 0 - 7 % 11/22/2022 7:49 AM [facility] BASOPHILS 1 0 - 1 % 11/22/2022 7:49 AM [facility] IMMATURE GRANULOCYTES 1 0 - 2 % 11/22/2022 7:49 AM [facility] NEUTROPHIL ABSOLUTE 4.40 2.00 - 8.00 K/uL 11/22/2022 7:49 AM [facility] LYMPHOCYTE ABSOLUTE 0.92(L) 1.20 - 4.00 K/uL 11/22/2022 7:49 AM [facility] MONOCYTE ABSOLUTE 0.74(H) 0.10 - 0.60 K/uL 11/22/2022 7:49 AM MEDICAL PRACTICE ADMINISTRATOR [facility] EOSINOPHIL ABSOLUTE 0.40 0.00 - 0.70 K/uL 11/22/2022 7:49 AM MEDICAL PRACTICE ADMINISTRATOR [facility] BASOPHILS ABSOLUTE 0.03 0.00 - 0.20 K/uL 11/22/2022 7:49 AM MEDICAL PRACTICE ADMINISTRATOR [facility] IMMATURE GRANULOCYTES ABSOLUTE 0.07 0.00 - 0.10 K/uL 11/22/2022 7:49 AM MEDICAL PRACTICE ADMINISTRATOR [facility] Blood Collection / Unknown 11/22/2022 4:14 AM MEDICAL PRACTICE ADMINISTRATOR 11/22/2022 7:43 AM MEDICAL PRACTICE ADMINISTRATOR Low Amaya DO HEMATOLOGY ORDERABLES Final Result Performing Organization Address City/State/[facility] Co de Phone Number [facility] CLIA # [id number] [facility] [address] documented in this encounter Visit Diagnoses Not on filedocumented in this encounter Additional Health Concerns Infection Onset Date Last Indicated Resolved Time C Diff 11/17/2022 11/17/2022 01/16/2023 1:16 AM CDT documented as of this encounter Care Teams Rib Cloth Knitter Relationship Specialty Start Date End Date Shant Ballesteros Jr., MD [address] [place] [address] PCP - General Family Practice 01/19/14 documented as of this encounter
--- OUTSIDE RECORDS SUMMARY | 2025-06-19 11:30 | XMS_ITS | Clinical Summary ---
Author Organization [facility] Address [address] [place] [address] Phone Care Team Providers Care Meter Changes Records Clerk Name Role Phone Favian Maldonado MD, [...] (1 - 1-dose 75+ series) 2030 Insurance [employer] [id number] HMO Care Teams Meter Changes Records Clerk Relationship Specialty Start Date End Date Shant Ballesteros Jr., MD [address] [place] [address] PCP - General Family Practice 01/19/14
--- OUTSIDE RECORDS SUMMARY | 2025-06-19 11:30 | XMS_ITS | Encounter Summary ---
Author Organization [employer] Address [address] [place] [address] Care Team Providers Care Electrical Intern Name Role Phone Favian Maldonado MD, Shant Humphreys Primary Care Provider Encounter Details Date Type Department Care Team (Late st Contact Info) Description 11/23/2022 Lab Requisition [facility] Laboratory Services [address] [place] [address] Low Amaya, DO [address] [place] [phone] Social History Tobacco Use Types Packs/Day Years Used Date Smoking Tobacco: Never Assessed Sex and Gender Information Value Date Recorded Sex Assigned at Not on file Legal Sex Male 9:45 AM ARMAMENT INSTALLER Gender Identity Not on file Sexual Orientation Not on file documented as of this encounter Plan of Treatment Not on file documented as of this encounter Procedures Procedure Name Priority Date/Time Associated Diagnosis Comments PHOSPHORUS Routine 11/23/2022 4:30 AM ARMAMENT INSTALLER MAGNESIUM LEVEL Routine 11/23/2022 4:30 AM ARMAMENT INSTALLER BASIC METABOLIC PANEL Routine 11/23/2022 4:30 AM ARMAMENT INSTALLER documented in this encounter Results * PHOSPHORUS (11/23/2022 4:30 AM ARMAMENT INSTALLER) PHOSPHORUS 4.1 2.5 - 4.5 mg/dL 11/23/2022 6:08 AM ARMAMENT INSTALLER [facility] Blood Collection / Unknown 11/23/2022 4:30 AM ARMAMENT INSTALLER 11/23/2022 5:49 AM ARMAMENT INSTALLER Low Amaya DO CHEMISTRY ORDERABLES Final R [facility] Performing Organization Address [facility]/ZIP Co de Phone Number [facility] CLIA # [id number] [address] [facility] [place] [address] * MAGNESIUM LEVEL (11/23/2022 4:30 AM ARMAMENT INSTALLER) MAGNESIUM 1.9 1.6 - 2.4 mg/dL 11/23/2022 6:08 AM [facility] Blood Collection / Unknown 11/23/2022 4:30 AM ARMAMENT INSTALLER 11/23/2022 5:49 AM ARMAMENT INSTALLER Low Amaya DO CHEMISTRY ORDERABLES Final R esult Performing Organization Address [facility] Co de Phone Number [facility] CLIA # [id number] [address] [address] * (ABNORMAL) BASIC METABOLIC PANEL (11/23/2022 4:30 AM ARMAMENT INSTALLER) SODIUM 142 136 - 145 mmol/L 11/23/2022 6:08 AM [facility] [employer] [facility] POTASSIUM 4.3 3.5 - 5.1 mmol/L 11/23/2022 6:08 AM [facility] [employer] [facility] Comment:Slightly hemolyzed. Result may be falsely elevated. CHLORIDE 104 98 - 107 mmol/L 11/23/2022 6:08 AM [facility] CO2 30(H) 22 - 29 mmol/L 11/23/2022 6:08 AM [facility] CALCIUM 9.5 8.8 - 10.2 mg/dL 11/23/2022 6:08 AM [facility] BUN 25(H) 8 - 23 mg/dL 11/23/2022 6:08 AM [facility] CREATININE 0.92 0.67 - 1.17 mg/dL 11/23/2022 6:08 AM [facility] GLUCOSE 135(H) 74 - 99 mg/dL 11/23/2022 6:08 AM [facility] GFR >60 >=60 mL/min/1.7 3 sq meter 11/23/2022 6:08 AM [facility] Comment:eGFR calculated with 2020 CKD-EPI equation. Vegetarian diet, extremely high or low muscle mass, and may affect results. Cystatin C with Glomerular Filtration Rate is a suitable alternative for these patients. ANION GAP 8(L) 9 - 20 mmol/L 11/23/2022 6:08 AM [facility] Blood Collection / Unknown 11/23/2022 4:30 AM ARMAMENT INSTALLER 11/23/2022 5:49 AM ARMAMENT INSTALLER Low Amaya DO CHEMISTRY ORDERABLES Final R esult [facility] CLIA # [id number] [address] [place] [address] documented in this encounter Visit Diagnoses Not on filedocumented in this encounter Additional Health Concerns Infection Onset Date Last Indicated Resolved Time C Diff 11/17/2022 11/17/2022 01/16/2023 1:16 AM CDT documented as of this encounter Care Teams Electrical Intern Relationship Specialty Start Date End Date Shant Ballesteros Jr., MD [address] [place] [address] PCP - General Family Practice 01/19/14 documented as of this encounter
--- OUTSIDE RECORDS SUMMARY | 2025-06-19 11:30 | XMS_ITS | Encounter Summary ---
Author Organization [employer] [facility] Address [address] [place] [address] Care Team Providers Care Shake Sawyer Name Role Phone Favian Maldonado MD, Shant Humphreys Primary Care Provider Encounter Details Date Type Department Care Team (Late st Contact Info) Description 11/19/2022 Lab Requisition [facility] Laboratory Services [address] [place] [address] Low Amaya, DO [address] [place] [phone] Social History Tobacco Use Types Packs/Day Years Used Date Smoking Tobacco: Never Assessed Sex and Gender Information Value Date Recorded Sex Assigned at Not on file Legal Sex Male 9:45 AM WASHROOM ATTENDANT Gender Identity Not on file Sexual Orientation Not on file documented as of this encounter Plan of Treatment Not on file documented as of this encounter Procedures Procedure Name Priority Date/Time Associated Diagnosis Comments TRIGLYCERIDE Routine 11/19/2022 2:55 AM WASHROOM ATTENDANT PHOSPHORUS Routine 11/19/2022 2:55 AM WASHROOM ATTENDANT MAGNESIUM LEVEL Routine 11/19/2022 2:55 AM WASHROOM ATTENDANT COMPREHENSIVE METABOLIC PANEL Routine 11/19/2022 2:55 AM WASHROOM ATTENDANT documented in this encounter Results * TRIGLYCERIDE (11/19/2022 2:55 AM WASHROOM ATTENDANT) TRIGLYCERIDE 126 <150 mg/dL 11/19/2022 6:43 AM WASHROOM ATTENDANT [facility] Blood Collection / Unknown 11/19/2022 2:55 AM WASHROOM ATTENDANT 11/19/2022 6:22 AM WASHROOM ATTENDANT Narrative [facility] - 11/19/2022 6:43 AM WASHROOM ATTENDANT TRIGLYCERIDES mg/dL Normal < 150 Borderline High 150 - 199 High 200 - 499 Very High >= 500 Based on AHA/NCEP Guidelines. Low Amaya DO CHEMISTRY ORDERABLES Final R esult Performing Organization Address [facility] Co de Phone Number [facility] CLIA # [id number] [address] [facility] [place] [address] * PHOSPHORUS (11/19/2022 2:55 AM WASHROOM ATTENDANT) PHOSPHORUS 4.4 2.5 - 4.5 mg/dL 11/19/2022 6:43 AM WASHROOM ATTENDANT [facility] Blood Collection / Unknown 11/19/2022 2:55 AM WASHROOM ATTENDANT 11/19/2022 6:22 AM WASHROOM ATTENDANT Low Amaya DO CHEMISTRY ORDERABLES Final R esult Performing Organization Address [facility] Co de Phone Number [facility] CLIA # [id number] [address] [address] * MAGNESIUM LEVEL (11/19/2022 2:55 AM WASHROOM ATTENDANT) MAGNESIUM 1.9 1.6 - 2.4 mg/dL 11/19/2022 6:43 AM WASHROOM ATTENDANT [facility] Blood Collection / Unknown 11/19/2022 2:55 AM WASHROOM ATTENDANT 11/19/2022 6:22 AM WASHROOM ATTENDANT Low Amaya DO CHEMISTRY ORDERABLES Final R esult Performing Organization Address [facility] Co de Phone Number [facility] CLIA # [id number] [address] [address] [place] [address] * (ABNORMAL) COMPREHENSIVE METABOLIC PANEL (11/19/2022 2:55 AM WASHROOM ATTENDANT) SODIUM 144 136 - 145 mmol/L 11/19/2022 6:43 AM [facility] POTASSIUM 3.5 3.5 - 5.1 mmol/L 11/19/2022 6:43 AM [facility] CHLORIDE 105 98 - 107 mmol/L 11/19/2022 6:43 AM [facility] CO2 32(H) 22 - 29 mmol/L 11/19/2022 6:43 AM [facility] CALCIUM 9.1 8.8 - 10.2 mg/dL 11/19/2022 6:43 AM [facility] BUN 22 8 - 23 mg/dL 11/19/2022 6:43 AM [facility] CREATININE 0.99 0.67 - 1.17 mg/dL 11/19/2022 6:43 AM [facility] GLUCOSE 169(H) 74 - 99 mg/dL 11/19/2022 6:43 AM [facility] TOTAL PROTEIN 6.6 6.4 - 8.3 g/dL 11/19/2022 6:43 AM [facility] ALBUMIN 3.0(L) 3.5 - 5.2 g/dL 11/19/2022 6:43 AM [facility] BILIRUBIN TOTAL 0.2 0.2 - 1.0 mg/dL 11/19/2022 6:43 AM [facility] ALKALINE PHOSPHATASE 64 40 - 129 U/L 11/19/2022 6:43 AM [facility] AST 13 10 - 50 U/L 11/19/2022 6:43 AM [facility] ALT 8 <=50 U/L 11/19/2022 6:43 AM [facility] GFR >60 >=60 mL/min/1.7 3 sq meter 11/19/2022 6:43 AM WASHROOM ATTENDANT [facility] Comment:eGFR calculated with 2020 CKD-EPI equation. Vegetarian diet, extremely high or low muscle mass, and may affect results. Cystatin C with Glomerular Filtration Rate is a suitable alternative for these patients. ANION GAP 7(L) 9 - 20 mmol/L 11/19/2022 6:43 AM WASHROOM ATTENDANT [facility] Blood Collection / Unknown 11/19/2022 2:55 AM WASHROOM ATTENDANT 11/19/2022 6:22 AM WASHROOM ATTENDANT us Low Amaya DO CHEMISTRY ORDERABLES Final R esult [facility] CLIA # [id number] [address] [address] documented in this encounter Visit Diagnoses Not on filedocumented in this encounter Additional Health Concerns Infection Onset Date Last Indicated Resolved Time C Diff 11/17/2022 11/17/2022 01/16/2023 1:16 AM CDT documented as of this encounter Care Teams Shake Sawyer Relationship Specialty Start Date End Date Shant Ballesteros Jr., MD [address] [place] [address] PCP - General Family Practice 01/19/14 documented as of this encounter
--- OUTSIDE RECORDS SUMMARY | 2025-06-19 11:30 | XMS_ITS | Patient Health Record ---
Author Organization [facility] Address [address] [place] [address] Care Team Providers Care Drop Press Hand Name Role Phone Kady Floyd Primary Care Provider Bala Wilson Unavailable [phone] KADY FLOYD Unavailable Unavailable Migration, Provider Unavailable Unavailable Miki Johnston Unavailable [phone] Tonya Woodruff Unavailable Allergies Allergen (clinical drug [...] Notes UA [place], [place] - [address] Reviewed date:11/05/2024 02:44:16 PM Interpretation: Performing Lab: Notes/Report: Glucose 0 Bili 0 Ketones 0 Sp [place] 1.030 Blood 0 pH 5.5 Protein 1+ [...] IM Intramuscular 08/04/2020 Administered Influenza (whole), CPT 40354 Inactive Unknown 08/12/2018 Administered Pneumococcal polysaccharide PPV23 [...] Notes Problem Adjustment disorder with depressed mood (60483449) Adjustment disorder with depressed mood (309.0) 2009 Problem resolved confirmed [id number]- Problem Hand foot and mouth disease (183116147) Hand, foot, and mouth disease (074.3) 2012 Problem resolved confirmed [id number]- Problem Obstructive sleep apnea syndrome (37216884) Obstructive sleep apnea (adult) (pediatric) (327.23) 2016 Active confirmed [id number]- Problem Sebaceous cyst (630992857) Sebaceous cyst (706.2) 2013 Problem resolved confirmed [id number]- Problem Seborrhea (4130255400) Seborrhea (706.3) 2013 Problem resolved confirmed [id number]- Problem Pressure ulcer, other site (707.09) 2017 Problem resolved confirmed [id number]- Problem Fever (013191395) Fever, unspeci fied (780.60) 2011 Problem resolved confirmed [id number]- Problem Palpitations (05494056) Palpitations (785.1) 2012 Problem resolved confirmed [id number]- Problem Heartburn (61191823) Heartburn (787.1) 2014 Problem resolved confirmed [id number]- Problem 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 Problem Calculus of kidney (75241006) Calculus of kidney (N20.0) Active confirmed Problem Nephrolithiasis (43498644) Nephrolithiasis (N20.0) Active confirmed Problem Benign hypertension (67356414) Hypertension, benign (I10) Active confirmed Problem Sleep apnea (83343051) Sleep apnea in adult (G47.30) Active confirmed Problem Screening for malignant neoplasm of prostate (203185867) Screening for prostate cancer (V76.44) 2017 Problem resolved confirmed [id number]- Problem Gout (05036156) Gout (M10.9) Active confirmed Problem Spasm (44105085) Muscle spasm (728.85) 2012 Problem resolved confirmed [id number]- Problem Androgen deficiency (87148243) Testosterone deficiency (257.2) 2013 Problem resolved confirmed [id number]- Problem Insomnia (156090400) Insomnia, unspecified type (G47.00) Active confirmed Problem Rash (594909075) Rash (782.1) 2010 Problem resolved confirmed [id number]- Problem Depression (581220859) Depression (311) 2010 Problem resolved confirmed [id number]- Problem Low libido (4511473) Low libido (R68.82) Active confirmed Problem Dizziness (438605933) Dizziness (780.4) 0 2010 Problem resolved confirmed [id number]- Problem Fatigue (21867626) Fatigue (R53.83) Active conf irmed Problem Atrial fibrillation (08087074) Atrial fibrillation, unspecified type (I48.91) Active confirmed Problem Seasonal allergy (788742525) Seasonal allergies (J30.2) Active confirmed Problem Hypertension (45302939) Hypertension (I10) Active confirmed Problem Asthma without statu s asthmaticus (99391605) Uncomplicated asthma, unspecified asthma severity, unspecified whether persistent (J45.909) Active confirmed Problem Ventricular tachycardia (51005977) Ventricular tachycardia (427.1) 2007 Problem resolved confirmed [id number]- Problem Hypercholesterolemia (29946157) Hypercholesterolemia (272.0) 2012 Problem resolved confirmed [id number]- Problem Lumbosacral spondylosis without myelopathy (51206394) 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 Active confirmed [id number]- Problem Memory loss (70523431) Memory loss (780.9) 2014 Problem resolved confirmed [id number]- Problem Secondary polycythemia (60271248) 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) 2017 Problem resolved confirmed [facility][id number]- Problem Shortness of breath (394174730) Shortness of breath (786.09) 2016 Problem resolved confirmed [id number][id number]- Problem Shoulder pain (20807986) Shoulder pain (719.41) 2013 Problem resolved confirmed [id number]- Problem Disorder of hematopoietic system (32273338) Abnormal findings on blood examination, NEC (790.99) 2013 Problem resolved confirmed [id number]- Problem Angina (652503562) Angina (413.9) 2010 Problem resolved confirmed [facility][id number]- Problem 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 Problem resolved confirmed [facility][id number]- Problem Disorder of hematopoietic system (56312886) Other abnormal findings on blood examination (790.99) 2015 Problem resolved confirmed [facility][id number]- Problem Disorder of hematopoietic system (49540459) Other abnormal laboratory result on blood (790.99) 2007 Problem resolved confirmed [facility][id number]- Problem Atypical mole syndrome (482061550) Atypical mole (238.2) 2008 Problem resolved confirmed [facility][id number]- Problem Chest pain (22607456) Chest pain (786.51) 2014 Problem resolved confirmed [facility][id number]- Problem Depressive disorder (92191834) Depressive disorder not elsewhere classified (311) 2014 Problem resolved confirmed [facility][id number]- Problem Generalized abdomina l pain (334931867) Generalized abdominal pain (789.07) 2008 Problem resolved confirmed [facility][id number]- Problem Lab: Used to mat ch unlinked laboratory orders (V92) 2014 Problem resolved confirmed [facility][id number]- Problem Impaired fasting glycaemia (248821185) Elevated fasting glucose (790.21) 2014 Problem resolved confirmed [facility][id number] [id number]- Problem Hemoglobinopathy (72382624) Elevated hematocrit (282.7) 2014 Problem resolved confirmed [facility][id number] [id number]- Problem Abnormal chest sound s (99447122522524) Egophany (786.7) 2016 Problem resolved confirmed [facility][id number] [id number]- Problem Insomnia (638468247) Insomnia (307.41) 2012 Problem resolved confirmed [facility][id number] [id number]- Problem Pain in limb (58600816) Leg pain (729.5) 2010 Problem resolved confirmed [facility][id number] [id number]- Problem Rib pain (110905275) Rib pain (786.50) 2013 Problem resolved confirmed [facility][id number] [id number]- Problem General examination of patient (691832226) Annual exam (V70.0) 2007 Problem resolved confirmed [facility][id number] [id number]- Problem Staphylococcal infectious disease (33261825) Staph infection (041.19) 2015 Problem resolved confirmed [facility][id number] [id number]- Problem Heart disease (41473389) Asymmetrical cardiac hypertrophy (429.9) 2007 Problem resolved confirmed [facility][id number] [id number]- Problem Obstructive sleep apnea (52496443) Obstructive sleep apnea (780.57) 2014 Problem resolved confirmed [facility][id number] [id number]- Problem Stress (012234023) Stress (300.02) 2008 Problem resolved confirmed [facility][id number] [id number]- Problem Acute upper respiratory infection (44775258) Acute upper respiratory infection of multiple sites (465.8) 2018 Problem resolved confirmed [facility][id number] [id number]- Problem Congestion (40206653) Congestion (477.9) 2007 Problem resolved confirmed [facility]98 [id number]- Problem Lumbar radiculopathy (529663395) Lumbar radiculopathy (722.10) 2010 Problem resolved confirmed [facility]98 [id number]- Problem Acquired polycythemi a (55875735) Acquired polycythemia (289.0) 2016 Problem resolved confirmed [facility]98 [id number]- Problem Acute sinusitis (81646602) Acute sinusitis (461.8) 2007 Problem resolved confirmed [facility]98 [id number]- Problem Ankle pain (190746380) Ankle pain (719.47) 2013 Problem resolved confirmed [facility]98 [id number]- Problem Heart murmur (32333395) Cardiac murmur (785.2) 2007 Problem resolved confirmed [facility]98 [id number]- Problem Erythrocyte sedimentation rate raised (921542725) Elevated sed rate (ESR) (790.1) 2011 Problem resolved confirmed [facility]98 [id number]- Problem Erectile dysfunction (754280832) Erectile dysfunction (302.72) 2013 Active confirmed [facility]98 [id number]- Problem Gynecomastia (3744039) Gynecomastia (611.1) 2015 Problem resolved confirmed [facility]98 [id number]- Problem Thrombosed external hemorrhoids (23689687) Hemorrhoids, external thrombosed (455.4) 2017 Problem resolved confirmed [facility]98 [id number]- Problem Disorder of lipid metabolism (866009774) Low HDL level (272.9) 2010 Problem resolved confirmed [facility]98 5911- Problem Left ventricular hypertrophy (78802431) LVH (429.3) 2010 Problem resolved confirmed [facility]98 [id number]- Problem Cellulitis and abscess of lower leg (659686658) Cellulitis of the leg (682.6) 2013 Problem resolved confirmed [facility]98 5911- Problem Change in voice (339669824) Change in voice (784.49) 2013 Problem resolved confirmed [facility]98 5911- Problem Acute upper respiratory infection (68210762) Upper respiratory illness (465.8) 2007 Problem resolved confirmed [facility]98 5911- Problem Kidney stone (21594644) kidney stones (592.0) 2007 Problem resolved confirmed [facility]98 5911- Problem Cramp in lower limb (559924176) Leg cramps (729.82) 2017 Problem resolved confirmed [facility]98 5911- Problem Low back pain (929508237) Lower back pain (724.2) 2010 Problem resolved confirmed [facility]98 5911- Problem Dry mouth (70512155) Dry mouth (527.7) 2014 Problem resolved confirmed [facility]98 5911- Problem Essential hypertension (95453208) Essential hypertension (401.1) 2010 Problem resolved confirmed [facility]11- Problem Impacted cerumen (21452218) External cerumen impaction (380.4) 2011 Problem resolved confirmed [facility]98 5911- Problem Laceration of foot (386997435) Laceration of foot (892.0) 2011 Problem resolved confirmed [facility]98 5911- Problem Pedal edema (288859288) Pedal edema (782.3) 2014 Problem resolved confirmed [facility]98 5911- Problem Synovial cyst (704733683) Synovial cyst, NOS (727.40) 2017 Problem resolved confirmed [facility]98 5911- Problem Thoracic back pain (356210833) Upper back pain (724.5) 2008 Problem resolved confirmed [facility]98 5911- Problem Seborrheic keratosis (353464410) Seborrheic keratosis, other (702.19) 2015 Problem resolved confirmed [facility] 5911- Problem Macrocytosis (57040349) Macrocytosis (D75.89) Active confirmed Vital Signs Heart Rate 94 /min 11/05/2024 Temperature 97.73 degrees Fahrenheit 11/05/2024 Height-cm 193.04 cm 11/05/2024 Blood pressure diastolic 64 mm Hg 11/05/2024 Weight-kg 130.45 kg 11/05/2024 Height 76.00 in 11/05/2024 Blood pressure systolic 101 mm Hg 11/05/2024 Weight 287.6 lbs 11/05/2024 BMI 35 kg/m2 11/05/2024 Encounters Encounter Location Date Provider Diagnosis [facility] [address] [place] [address] [address] [place] [address] 11/05/2024 Tonya Woodruff Hypertension I10 ; Testicular hypofunction E29.1 ; Nephrolithiasis N20.0 ; Fatigue R53.83 and Low libido R68.82 Migrated_Facility 0 0 07/25/2024 Provider Migration Migrated_Facility 0 0 07/26/2024 Provider Migration [facility] [address] [place] [address] Dr [address] [place] [address] 06/19/2024 Miki Johnston Testicular hypofunct ion E29.1 [facility] [address] [place] [address] 07/03/2024 Miki Johnston Testicular hypofunct ion E29.1 [facility] [address] [place] [address] 07/09/2024 Miki Johnston Testicular hypofunct ion E29.1 [facility] [address] [place] [address] 09/25/2024 Miki Shinsay [facility] [address] [place] [address] 09/25/2024 Miki Johnston [facility] [address] [place] [address] 11/05/2024 Miki Johnston Testicular hypofunct ion E29.1 [facility] [address] [place] [address] 11/27/2024 [facility] [address] [place] [address] 12/11/2024 Tonya Woodruff [facility] [address] [place] [address] 05/05/2025 Miki Shinsay [facility] [address] [place] [address] 05/05/2025 Miki Shinsay [facility] [address] [place] [address] 05/05/2025 Miki Johnston Assessments Encounter Date Diagnosis [...] effects. 11/05/2024 Testicular hypofunction (ICD-10 - E29.1) 11/05/2024 Nephrolithiasis (ICD-10 - N20.0) Have imaging completed if ordered for you If you are having the symptoms below, with fever and chills, uncontrolled pain, contact office or go to ER *Kidney stones Symptoms Severe pain in the side and back, below the ribs. Pain that radiates to the lower abdomen and groin. Pain during urination [place], red, or brown urine. Nausea and Vomiting [...] to help pass the stone. Pain Management: [id number] pain relievers like ibuprofen or acetaminophen. Medications: [...] Name Order Date CBC w\ Auto Diff [id number] 06/15/2024 CBC w\ Auto Diff 86117 06/19/2024 Comprehensive Metabolic Panel (CMP) 8005 3 06/15/2024 Comprehensive Metabolic Panel (CMP) 8005 3 06/19/2024 Estradiol Level 98324 06/19/2024 Estradiol Level 31132 06/15/2024 Testosterone Total 88138 06/15/2024 Testosterone Total 14584 06/19/2024 Abdomen [id number] 06/15/2024 Future Test Test Name Order Date CBC w\ Auto Diff 84784 03/30/2025 Comprehensive Metabolic Panel (CMP) 8005 3 03/30/2025 Estradiol Level 74516 03/30/2025 PSA Diagnostic--74928 03/30/2025 Testosterone Total 82292 03/30/2025 Insurance Providers Payer Name Payer Address Payer Phone Subscriber Number Group Number Insured Name Patient Relationship to Insured Coverage Start Date Coverage End Date [employer] [employer] [address] [place] [address] [id number] Charan Smith Self - patient is the insured Medical (General) History Medical History History ICD Code Asymmetrical cardiac hypertrophy Hypertension Hypercholesterolemia Sleep apnea Osteoarthritis Testosterone deficiency Erectile dysfunction Depression OTHER MEDICAL PROVIDERS Keyseating Machine Set Up Operator- Dr. Orourke Pain management- Dr. Maldonado Urologist- Dr. Cage Apprentice Stylist - Dr. Bala Juárez Thyroid tumor, benign 09/2020 Electrocution; 02/2020 Asthma CKD New onset of A-fib Surgical History Surgery Date(Month/Year) Fracture of wrist; 2004 Foot; left 2013 L4-L5 Fusion Hospitalization History Reason Date(Month/Year) New onset Afib 11/07/20 Covid 09/2020
--- OUTSIDE RECORDS SUMMARY | 2025-06-19 11:30 | XMS_ITS | Encounter Summary ---
Author Organization [facility] Address [address] [place] [address] Care Team Providers Care Thermoplastic Technician Name Role Phone Favian Maldonado MD, Shant Humphreys Primary Care Provider Encounter Details Date Type Department Care Team (Late st Contact Info) Description 11/09/2022 Lab Requisition [facility] Laboratory Services [address] [place] [address] Soni Jeffery MD [address] [place] [address] Social History Tobacco Use Types Packs/Day Years Used Date Smoking Tobacco: Never Assessed Sex and Gender Information Value Date Recorded Sex Assigned at Not on file Legal Sex Male 9:45 AM BEE RAISER Gender Identity Not on file Sexual Orientation Not on file documented as of this encounter Plan of Treatment Not on file documented as of this encounter Procedures Procedure Name Priority Date/Time Associated Diagnosis Comments CBC WITH DIFFERENTIAL Routine 11/09/2022 6:15 PM BEE RAISER BASIC METABOLIC PANEL Routine 11/09/2022 6:15 PM BEE RAISER documented in this encounter Results * (ABNORMAL) CBC WITH DIFFERENTIAL (11/09/2022 6:15 PM BEE RAISER) [facility] WBC 7.2 4.8 - 10.8 K/uL 11/09/2022 7:07 PM BEE RAISER [facility] RBC 2.78(L) 4.60 - 6.20 M/uL 11/09/2022 7:07 PM [facility] HEMOGLOBIN 8.0(L) 14.0 - 18.0 g/dL 11/09/2022 7:07 PM [facility] HEMATOCRIT 27.5(L) 41.0 - 53.0 % 11/09/2022 7:07 PM [facility] MCV 98.9 84.0 - 103.0 fL 11/09/2022 7:07 PM [facility] MCH 28.8 27.0 - 34.0 pg 11/09/2022 7:07 PM [facility] MCHC 29.1(L) 30.0 - 35.0 g/dL 11/09/2022 7:07 PM [facility] RDW 15.9(H) 11.0 - 14.5 % 11/09/2022 7:07 PM [facility] RDW-STDEV 57.7(H) 37.0 - 54.0 fL 11/09/2022 7:07 PM [facility] PLATELETS 250 140 - 440 K/uL 11/09/2022 7:07 PM [facility] MPV 10.9 8.9 - 12.8 fL 11/09/2022 7:07 PM [facility] NEUTROPHILS 65 42 - 75 % 11/09/2022 7:07 PM [facility] LYMPHOCYTES 11(L) 24 - 44 % 11/09/2022 7:07 PM [facility] MONOCYTES 17(H) 2 - 10 % 11/09/2022 7:07 PM [facility] EOSINOPHILS 6 0 - 7 % 11/09/2022 7:07 PM [facility] BASOPHILS 1 0 - 1 % 11/09/2022 7:07 PM [facility] IMMATURE GRANULOCYTES 1 0 - 2 % 11/09/2022 7:07 PM [facility] NEUTROPHIL ABSOLUTE 4.64 2.00 - 8.00 K/uL 11/09/2022 7:07 PM [facility] LYMPHOCYTE ABSOLUTE 0.79(L) 1.20 - 4.00 K/uL 11/09/2022 7:07 PM [facility] MONOCYTE ABSOLUTE 1.19(H) 0.10 - 0.60 K/uL 11/09/2022 7:07 PM [facility] EOSINOPHIL ABSOLUTE 0.42 0.00 - 0.70 K/uL 11/09/2022 7:07 PM [facility] BASOPHILS ABSOLUTE 0.04 0.00 - 0.20 K/uL 11/09/2022 7:07 PM [facility] IMMATURE GRANULOCYTES ABSOLUTE 0.08 0.00 - 0.10 K/uL 11/09/2022 7:07 PM [facility] Blood Collection / Unknown 11/09/2022 6:15 PM BEE RAISER 11/09/2022 7:03 PM [facility] Soni Jeffery MD HEMATOLOGY ORDERABLES Final Resu lt [facility] CLIA # [id number] [facility] [address] * (ABNORMAL) BASIC METABOLIC PANEL (11/09/2022 6:15 PM BEE RAISER) SODIUM 140 136 - 145 mmol/L 11/09/2022 7:39 PM [facility] POTASSIUM 4.8 3.5 - 5.1 mmol/L 11/09/2022 7:39 PM [facility] CHLORIDE 106 98 - 107 mmol/L 11/09/2022 7:39 PM [facility] CO2 26 22 - 29 mmol/L 11/09/2022 7:39 PM [facility] CALCIUM 8.6(L) 8.8 - 10.2 mg/dL 11/09/2022 7:39 PM [facility] BUN 22 8 - 23 mg/dL 11/09/2022 7:39 PM [facility] CREATININE 1.15 0.67 - 1.17 mg/dL 11/09/2022 7:39 PM [facility] GLUCOSE 121(H) 74 - 99 mg/dL 11/09/2022 7:39 PM BEE RAISER [facility] GFR >60 >=60 mL/min/1.7 3 sq meter 11/09/2022 7:39 PM [facility] Comment:eGFR calculated with 2020 CKD-EPI equation. Vegetarian diet, extremely high or low muscle mass, and may affect results. Cystatin C with Glomerular Filtration Rate is a suitable alternative for these patients. ANION GAP 8(L) 9 - 20 mmol/L 11/09/2022 7:39 PM [facility] Blood Collection / Unknown 11/09/2022 6:15 PM BEE RAISER 11/09/2022 7:03 PM BEE RAISER Soni Jeffery MD CHEMISTRY ORDERABLES Final Resul t Performing Organization Address City/State/[facility] [[email or web address]] Co de Phone Number [facility] CLIA # [id number] [facility] [address] documented in this encounter Visit Diagnoses Not on filedocumented in this encounter Additional Health Concerns Infection Onset Date Last Indicated Resolved Time C Diff 11/17/2022 11/17/2022 01/16/2023 1:16 AM CDT documented as of this encounter Care Teams Thermoplastic Technician Relationship Specialty Start Date End Date Shant Ballesteros Jr., MD [address] [place] [address] PCP - General Family Practice 01/19/14 documented as of this encounter
--- OUTSIDE RECORDS SUMMARY | 2025-06-19 11:30 | XMS_ITS | Encounter Summary ---
Author Organization [facility] Address [address] [place] [address] Care Team Providers Care Warp Preparer Name Role Phone Favian Maldonado MD, Shant Humphreys Primary Care Provider Encounter Details Date Type Department Care Team (Late st Contact Info) Description 11/19/2022 Lab Requisition [facility] Laboratory Services [address] [place] [address] Low Amaya, DO [address] [place] [address] Social History Tobacco Use Types Packs/Day Years Used Date Smoking Tobacco: Never Assessed Sex and Gender Information Value Date Recorded Sex Assigned at Not on file Legal Sex Male 9:45 AM BREAKER MECHANIC Gender Identity Not on file Sexual Orientation Not on file documented as of this encounter Plan of Treatment Not on file documented as of this encounter Procedures Procedure Name Priority Date/Time Associated Diagnosis Comments CALCIUM IONIZED Routine 11/19/2022 3:45 PM BREAKER MECHANIC documented in this encounter Results * CALCIUM IONIZED (11/19/2022 3:45 PM BREAKER MECHANIC) CALCIUM IONIZED 5.2 4.8 - 5.6 mg/dL 11/21/2022 10:53 AM BREAKER MECHANIC [facility] Blood Collection / Unknown 11/19/2022 3:45 PM BREAKER MECHANIC 11/20/2022 7:56 AM BREAKER MECHANIC Narrative [facility] - 11/21/2022 10:53 AM BREAKER MECHANIC Performing Organization Information: Site ID: [id number] Name: [facility] Address: [address] [address] Director: Andrew Alvarado MD us Low Amaya [...] Date Shant Ballesteros Jr., MD [address] [place] [address] PCP - General Family Practice 01/19/14 documented as of this encounter
--- OUTSIDE RECORDS SUMMARY | 2025-06-19 11:30 | XMS_ITS | Encounter Summary ---
Author Organization [employer] [facility] Address [address] [place] [address] Care Team Providers Care Probe Operator Name Role Phone Favian Maldonado MD, Shant Humphreys Primary Care Provider Encounter Details Date Type Department Care Team (Late st Contact Info) Description 11/17/2022 Lab Requisition [facility] Laboratory Services [address] [place] [address] Andre Mary, MADHU [address] [facility] [address] [place] [address] Social History Tobacco Use Types Packs/Day Years Used Date Smoking Tobacco: Never Assessed Sex and Gender Information Value Date Recorded Sex Assigned at Not on file Legal Sex Male 9:45 AM HVAC FIELD SERVICE TECHNICIAN Gender Identity Not on file Sexual Orientation Not on file documented as of this encounter Plan of Treatment Not on file documented as of this encounter Procedures Procedure Name Priority Date/Time Associated Diagnosis Comments CBC WITH DIFFERENTIAL Stat 11/17/2022 4:30 AM HVAC FIELD SERVICE TECHNICIAN TRIGLYCERIDE Stat 11/17/2022 4:30 AM HVAC FIELD SERVICE TECHNICIAN PHOSPHORUS Stat 11/17/2022 4:30 AM HVAC FIELD SERVICE TECHNICIAN MAGNESIUM LEVEL Stat 11/17/2022 4:30 AM HVAC FIELD SERVICE TECHNICIAN COMPREHENSIVE METABOLIC PANEL Routine 11/17/2022 4:30 AM HVAC FIELD SERVICE TECHNICIAN documented in this encounter Results * TRIGLYCERIDE (11/17/2022 4:30 AM HVAC FIELD SERVICE TECHNICIAN) TRIGLYCERIDE 103 <150 mg/dL 11/17/2022 5:51 AM HVAC FIELD SERVICE TECHNICIAN [facility] Blood Collection / Unknown 11/17/2022 4:30 AM HVAC FIELD SERVICE TECHNICIAN 11/17/2022 5:31 AM HVAC FIELD SERVICE TECHNICIAN Narrative [facility] - 11/17/2022 5:51 AM HVAC FIELD SERVICE TECHNICIAN TRIGLYCERIDES mg/dL Normal < 150 Borderline High 150 - 199 High 200 - 499 Very High >= 500 Based on AHA/NCEP Guidelines. Andre Mary TOBACCO WRAPPING MACHINE TENDER CHEMISTRY ORDERABLES Fin al Result Performing Organization Address City/[facility]/ZIP Co de Phone Number [facility] CLIA # [id number] [id number] [place], [place] [id number] * PHOSPHORUS (11/17/2022 4:30 AM HVAC FIELD SERVICE TECHNICIAN) Pathologist [facility] PHOSPHORUS 3.2 2.5 - 4.5 mg/dL 11/17/2022 5:51 AM HVAC FIELD SERVICE TECHNICIAN [facility] Blood Collection / Unknown 11/17/2022 4:30 AM HVAC FIELD SERVICE TECHNICIAN 11/17/2022 5:31 AM HVAC FIELD SERVICE TECHNICIAN Andre Mary TOBACCO WRAPPING MACHINE TENDER CHEMISTRY ORDERABLES Fin al Result [facility] CLIA # [id number] [address] [facility] [place], [place] [address] * MAGNESIUM LEVEL (11/17/2022 4:30 AM HVAC FIELD SERVICE TECHNICIAN) MAGNESIUM 2.1 1.6 - 2.4 mg/dL 11/17/2022 5:51 AM HVAC FIELD SERVICE TECHNICIAN [facility] Blood Collection / Unknown 11/17/2022 4:30 AM HVAC FIELD SERVICE TECHNICIAN 11/17/2022 5:31 AM HVAC FIELD SERVICE TECHNICIAN us Andre Mary NP CHEMISTRY ORDERABLES Fin al Result [facility] CLBRYANT # [id number] [address] [facility] [place] [address] * (ABNORMAL) CBC WITH DIFFERENTIAL (11/17/2022 4:30 AM HVAC FIELD SERVICE TECHNICIAN) [facility] WBC 8.8 4.8 - 10.8 K/uL 11/17/2022 5:58 AM [facility] RBC 2.68(L) 4.60 - 6.20 M/uL 11/17/2022 5:58 AM [facility] HEMOGLOBIN 8.0(L) 14.0 - 18.0 g/dL 11/17/2022 5:58 AM [facility] HEMATOCRIT 27.6(L) 41.0 - 53.0 % 11/17/2022 5:58 AM [facility] MCV 103.0 84.0 - 103.0 fL 11/17/2022 5:58 AM [facility] MCH 29.9 27.0 - 34.0 pg 11/17/2022 5:58 AM [facility] MCHC 29.0(L) 30.0 - 35.0 g/dL 11/17/2022 5:58 AM [facility] RDW 18.1(H) 11.0 - 14.5 % 11/17/2022 5:58 AM [facility] RDW-STDEV 65.9(H) 37.0 - 54.0 fL 11/17/2022 5:58 AM [facility] PLATELETS 296 140 - 440 K/uL 11/17/2022 5:58 AM [facility] MPV 9.6 8.9 - 12.8 fL 11/17/2022 5:58 AM [facility] NEUTROPHILS 67 42 - 75 % 11/17/2022 5:58 AM [facility] LYMPHOCYTES 12(L) 24 - 44 % 11/17/2022 5:58 AM [facility] MONOCYTES 13(H) 2 - 10 % 11/17/2022 5:58 AM [facility] EOSINOPHILS 6 0 - 7 % 11/17/2022 5:58 AM [facility] BASOPHILS 1 0 - 1 % 11/17/2022 5:58 AM [facility] IMMATURE GRANULOCYTES 2 0 - 2 % 11/17/2022 5:58 AM [facility] NEUTROPHIL ABSOLUTE 5.91 2.00 - 8.00 K/uL 11/17/2022 5:58 AM [facility] LYMPHOCYTE ABSOLUTE 1.04(L) 1.20 - 4.00 K/uL 11/17/2022 5:58 AM [facility] MONOCYTE ABSOLUTE 1.10(H) 0.10 - 0.60 K/uL 11/17/2022 5:58 AM [facility] EOSINOPHIL ABSOLUTE 0.56 0.00 - 0.70 K/uL 11/17/2022 5:58 AM [facility] BASOPHILS ABSOLUTE 0.06 0.00 - 0.20 K/uL 11/17/2022 5:58 AM [facility] IMMATURE GRANULOCYTES ABSOLUTE 0.13(H) 0.00 - 0.10 K/uL 11/17/2022 5:58 AM [facility] Blood Collection / Unknown 11/17/2022 4:30 AM HVAC FIELD SERVICE TECHNICIAN 11/17/2022 5:30 AM [facility] us Andre Mary TOBACCO WRAPPING MACHINE TENDER HEMATOLOGY ORDERABLES Fi nal Result [facility] CLIA # [id number] [address] [address] [place], [place] [id number] * (ABNORMAL) COMPREHENSIVE METABOLIC PANEL (11/17/2022 4:30 AM HVAC FIELD SERVICE TECHNICIAN) [facility] SODIUM 144 136 - 145 mmol/L 11/17/2022 5:51 AM [facility] POTASSIUM 3.8 3.5 - 5.1 mmol/L 11/17/2022 5:51 AM [facility] CHLORIDE 107 98 - 107 mmol/L 11/17/2022 5:51 AM [facility] CO2 34(H) 22 - 29 mmol/L 11/17/2022 5:51 AM [facility] CALCIUM 9.1 8.8 - 10.2 mg/dL 11/17/2022 5:51 AM [facility] BUN 20 8 - 23 mg/dL 11/17/2022 5:51 AM [facility] CREATININE 1.03 0.67 - 1.17 mg/dL 11/17/2022 5:51 AM [facility] GLUCOSE 151(H) 74 - 99 mg/dL 11/17/2022 5:51 AM [facility] TOTAL PROTEIN 6.5 6.4 - 8.3 g/dL 11/17/2022 5:51 AM [facility] ALBUMIN 2.8(L) 3.5 - 5.2 g/dL 11/17/2022 5:51 AM [facility] BILIRUBIN TOTAL 0.3 0.2 - 1.0 mg/dL 11/17/2022 5:51 AM [facility] ALKALINE PHOSPHATASE 69 40 - 129 U/L 11/17/2022 5:51 AM [facility] AST 12 10 - 50 U/L 11/17/2022 5:51 AM [facility] ALT 10 <=50 U/L 11/17/2022 5:51 AM [facility] GFR >60 >=60 mL/min/1.7 3 sq meter 11/17/2022 5:51 AM [facility] Comment:eGFR calculated with 2020 CKD-EPI equation. Vegetarian diet, extremely high or low muscle mass, and may affect results. Cystatin C with Glomerular Filtration Rate is a suitable alternative for these patients. ANION GAP 3(L) 9 - 20 mmol/L 11/17/2022 5:51 AM HVAC FIELD SERVICE TECHNICIAN [facility] Blood Collection / Unknown 11/17/2022 4:30 AM HVAC FIELD SERVICE TECHNICIAN 11/17/2022 5:31 AM HVAC FIELD SERVICE TECHNICIAN Andre Mary TOBACCO WRAPPING MACHINE TENDER CHEMISTRY ORDERABLES Fin al Result [facility] CLIA # [id number] [address] [address] [place] [address] documented in this encounter Visit Diagnoses Not on filedocumented in this encounter Additional Health Concerns Infection Onset Date Last Indicated Resolved Time C Diff 11/17/2022 11/17/2022 01/16/2023 1:16 AM CDT documented as of this encounter Care Teams Probe Operator Relationship Specialty Start Date End Date Shant Ballesteros Jr., MD [address] [place] [address] PCP - General Family Practice 01/19/14 documented as of this encounter
--- OUTSIDE RECORDS SUMMARY | 2025-06-19 11:30 | XMS_ITS | Encounter Summary ---
Author Organization [facility] Address [address] [place] [address] Care Team Providers Care Combustion Analyst Name Role Phone Favian Maldonado MD, Shant Humphreys Primary Care Provider Encounter Details Date Type Department Care Team (Late st Contact Info) Description 11/17/2022 Lab Requisition [facility] Laboratory Services [address] [place] [address] Cary Javier PA-C [address] [place] [address] Social History Tobacco Use Types Packs/Day Years Used Date Smoking Tobacco: Never Assessed Sex and Gender Information Value Date Recorded Sex Assigned at Not on file Legal Sex Male 9:45 AM INVESTOR Gender Identity Not on file Sexual Orientation Not on file documented as of this encounter Plan of Treatment Not on file documented as of this encounter Procedures Procedure Name Priority Date/Time Associated Diagnosis Comments C. DIFFICILE DETECTION Routine 11/17/2022 10:45 AM INVESTOR documented in this encounter Results * (ABNORMAL) C. DIFFICILE DETECTION (11/17/2022 10:45 AM INVESTOR) TOXIGENIC C DIFFICILE DETECTED( A) Not Detected 11/17/2022 1:45 PM INVESTOR [facility] Stool STOOL SPECIMEN / Unknown Collection / Unknown 11/17/2022 10:45 AM INVESTOR 11/17/2022 12:20 PM INVESTOR Narrative [facility] - 11/17/2022 1:45 PM INVESTOR Cdiff detected called to Cait Feng [facility] by CATRACHO REINA on 11/17/2022 [...] LES Final Result [facility] [employer] [facility] CLIA # [id number] [facility] [address] documented in this encounter Visit Diagnoses Not on filedocumented in this encounter Additional Health Concerns Infection Onset Date Last Indicated Resolved Time C Diff 11/17/2022 11/17/2022 01/16/2023 1:16 AM CDT documented as of this encounter Care Teams Combustion Analyst Relationship Specialty Start Date End Date Shant Ballesteros Jr., MD [address] [place] [address] PCP - General Family Practice 01/19/14 documented as of this encounter
--- OUTSIDE RECORDS SUMMARY | 2025-06-19 11:30 | XMS_ITS | Encounter Summary ---
Author Organization [employer] [facility] Address [address] [place] [address] Care Team Providers Care Knowledge Manager Name Role Phone Favian Maldonado MD, Shant Humphreys Primary Care Provider Encounter Details Date Type Department Care Team (Late st Contact Info) Description 11/24/2022 Lab Requisition [facility] Laboratory Services [address] [place] [address] Andre Mary, MADHU [address] [facility] [address] [place] [address] Social History Tobacco Use Types Packs/Day Years Used Date Smoking Tobacco: Never Assessed Sex and Gender Information Value Date Recorded Sex Assigned at Not on file Legal Sex Male 9:45 AM IMAGE ASSEMBLER Gender Identity Not on file Sexual Orientation Not on file documented as of this encounter Plan of Treatment Not on file documented as of this encounter Procedures Procedure Name Priority Date/Time Associated Diagnosis Comments EXTRA TUBE (SST/GOLD) Routine 11/24/2022 7:12 PM IMAGE ASSEMBLER LACTIC ACID Stat 11/24/2022 7:12 PM IMAGE ASSEMBLER PROCALCITONIN Stat 11/24/2022 6:37 PM IMAGE ASSEMBLER CBC WITH DIFFERENTIAL Stat 11/24/2022 6:37 PM IMAGE ASSEMBLER BLOOD CULTURE Stat 11/24/2022 6:37 PM IMAGE ASSEMBLER BLOOD CULTURE Stat 11/24/2022 6:37 PM IMAGE ASSEMBLER COMPREHENSIVE METABOLIC PANEL Stat 11/24/2022 6:37 PM IMAGE ASSEMBLER documented in this encounter Results * EXTRA TUBE (SST/GOLD) (11/24/2022 7:12 PM IMAGE ASSEMBLER) Blood Collection / Unknown 11/24/2022 7:12 PM IMAGE ASSEMBLER 11/24/2022 7:42 PM IMAGE ASSEMBLER Andre Mary BODY SHOP MECHANIC CHEMISTRY ORDERABLES Fin al Result Performing Organization Address [facility] Co de Phone Number [facility] CLIA # [id number] [id number] [place] [address] * LACTIC ACID (11/24/2022 7:12 PM IMAGE ASSEMBLER) LACTIC ACID 1.0 <=2.0 mmol/L 11/24/2022 7:47 PM IMAGE ASSEMBLER [facility] Blood Collection / Unknown 11/24/2022 7:12 PM IMAGE ASSEMBLER 11/24/2022 7:25 PM IMAGE ASSEMBLER Andre Mary BODY SHOP MECHANIC CHEMISTRY ORDERABLES Fin al Result Performing Organization Address [facility] Co de Phone Number [facility] CLIA # [id number] [id number] [place] [address] * PROCALCITONIN (11/24/2022 6:37 PM IMAGE ASSEMBLER) PROCALCITONIN 0.08 <=0.08 ng/mL 11/24/2022 8:08 PM IMAGE ASSEMBLER [facility] Blood Collection / Unknown 11/24/2022 6:37 PM IMAGE ASSEMBLER 11/24/2022 7:25 PM IMAGE ASSEMBLER Narrative [facility] - 11/24/2022 8:08 PM IMAGE ASSEMBLER The utility of procalcitonin is limited/NOT recommended [...] ORDERABLES Fin al Result Performing Organization Address [facility]/ZIP Co de Phone Number [facility] CLIA # [id number] [address] [place], [place] [address] * BLOOD CULTURE (11/24/2022 6:37 PM IMAGE ASSEMBLER) [facility] Signature BLOOD CULTURE No growth 11/29/2022 10:32 PM IMAGE ASSEMBLER [facility] Blood Collection / Unknown 11/24/2022 6:37 PM IMAGE ASSEMBLER 11/24/2022 7:25 PM IMAGE ASSEMBLER Andre Mary NP MICROBIOLOGY - GENERAL O RDERABLES Final Result Performing Organization Address [facility] Co de Phone Number [facility] CLIA # [id number] [address] [place] [address] * BLOOD CULTURE (11/24/2022 6:37 PM IMAGE ASSEMBLER) Pathologist [facility] BLOOD CULTURE No growth 11/29/2022 10:32 PM IMAGE ASSEMBLER [facility] Blood Collection / Unknown 11/24/2022 6:37 PM IMAGE ASSEMBLER 11/24/2022 7:25 PM IMAGE ASSEMBLER Andre Mary NP MICROBIOLOGY - GENERAL O RDERABLES Final Result [facility] CLIA # [id number] [facility] [address] [address] [place] [address] * (ABNORMAL) CBC WITH DIFFERENTIAL (11/24/2022 6:37 PM IMAGE ASSEMBLER) [facility] WBC 8.1 4.8 - 10.8 K/uL 11/24/2022 7:42 PM [facility] RBC 2.66(L) 4.60 - 6.20 M/uL 11/24/2022 7:42 PM [facility] HEMOGLOBIN 7.9(L) 14.0 - 18.0 g/dL 11/24/2022 7:42 PM [facility] HEMATOCRIT 27.6(L) 41.0 - 53.0 % 11/24/2022 7:42 PM [facility] MCV 103.8(H) 84.0 - 103.0 fL 11/24/2022 7:42 PM [facility] MCH 29.7 27.0 - 34.0 pg 11/24/2022 7:42 PM [facility] MCHC 28.6(L) 30.0 - 35.0 g/dL 11/24/2022 7:42 PM [facility] RDW 18.6(H) 11.0 - 14.5 % 11/24/2022 7:42 PM [facility] RDW-STDEV 69.4(H) 37.0 - 54.0 fL 11/24/2022 7:42 PM [facility] PLATELETS 248 140 - 440 K/uL 11/24/2022 7:42 PM [facility] MPV 10.3 8.9 - 12.8 fL 11/24/2022 7:42 PM [facility] NEUTROPHILS 73 42 - 75 % 11/24/2022 7:42 PM [facility] LYMPHOCYTES 11(L) 24 - 44 % 11/24/2022 7:42 PM [facility] MONOCYTES 13(H) 2 - 10 % 11/24/2022 7:42 PM [facility] EOSINOPHILS 3 0 - 7 % 11/24/2022 7:42 PM [facility] BASOPHILS 0 0 - 1 % 11/24/2022 7:42 PM [facility] IMMATURE GRANULOCYTES 1 0 - 2 % 11/24/2022 7:42 PM [facility] NEUTROPHIL ABSOLUTE 5.86 2.00 - 8.00 K/uL 11/24/2022 7:42 PM [facility] LYMPHOCYTE ABSOLUTE 0.87(L) 1.20 - 4.00 K/uL 11/24/2022 7:42 PM [facility] MONOCYTE ABSOLUTE 1.02(H) 0.10 - 0.60 K/uL 11/24/2022 7:42 PM [facility] EOSINOPHIL ABSOLUTE 0.21 0.00 - 0.70 K/uL 11/24/2022 7:42 PM [facility] BASOPHILS ABSOLUTE 0.03 0.00 - 0.20 K/uL 11/24/2022 7:42 PM [facility] IMMATURE GRANULOCYTES ABSOLUTE 0.07 0.00 - 0.10 K/uL 11/24/2022 7:42 PM [facility] Blood Collection / Unknown 11/24/2022 6:37 PM IMAGE ASSEMBLER 11/24/2022 7:25 PM IMAGE ASSEMBLER Andre Mary NP HEMATOLOGY ORDERABLES Fi nal Result [facility] CLIA # [id number] [address] [address] [place] [address] * (ABNORMAL) COMPREHENSIVE METABOLIC PANEL (11/24/2022 6:37 PM [facility]) SODIUM 144 136 - 145 mmol/L 11/24/2022 8:06 PM [facility] POTASSIUM 4.6 3.5 - 5.1 mmol/L 11/24/2022 8:06 PM [facility] CHLORIDE 105 98 - 107 mmol/L 11/24/2022 8:06 PM [facility] CO2 28 22 - 29 mmol/L 11/24/2022 8:06 PM [facility] CALCIUM 9.4 8.8 - 10.2 mg/dL 11/24/2022 8:06 PM [facility] BUN 42(H) 8 - 23 mg/dL 11/24/2022 8:06 PM [facility] CREATININE 1.50(H) 0.67 - 1.17 mg/dL 11/24/2022 8:06 PM [facility] GLUCOSE 102(H) 74 - 99 mg/dL 11/24/2022 8:06 PM [facility] TOTAL PROTEIN 6.5 6.4 - 8.3 g/dL 11/24/2022 8:06 PM [facility] ALBUMIN 2.9(L) 3.5 - 5.2 g/dL 11/24/2022 8:06 PM [facility] BILIRUBIN TOTAL 0.4 0.2 - 1.0 mg/dL 11/24/2022 8:06 PM [facility] ALKALINE PHOSPHATASE 88 40 - 129 U/L 11/24/2022 8:06 PM [facility] AST 12 10 - 50 U/L 11/24/2022 8:06 PM [facility] ALT 9 <=50 U/L 11/24/2022 8:06 PM [facility] GFR 51(L) >=60 mL/min/1. 73 sq meter 11/24/2022 8:06 PM IMAGE ASSEMBLER [facility] Comment:eGFR calculated with 2020 CKD-EPI equation. Vegetarian diet, extremely high or low muscle mass, and may affect results. Cystatin C with Glomerular Filtration Rate is a suitable alternative for these patients. ANION GAP 11 9 - 20 mmol/L 11/24/2022 8:06 PM IMAGE ASSEMBLER [facility] Blood Collection / Unknown 11/24/2022 6:37 PM IMAGE ASSEMBLER 11/24/2022 7:25 PM IMAGE ASSEMBLER us Andre Mary BODY SHOP MECHANIC CHEMISTRY ORDERABLES Fin al Result [facility] CLIA # [id number] [facility] [address] [address] documented in this encounter Visit Diagnoses Not on filedocumented in this encounter Additional Health Concerns Infection Onset Date Last Indicated Resolved Time C Diff 11/17/2022 11/17/2022 01/16/2023 1:16 AM CDT documented as of this encounter Care Teams Knowledge Manager Relationship Specialty Start Date End Date Shant Ballesteros Jr., MD [address] [place] [address] PCP - General Family Practice 01/19/14 documented as of this encounter
[2025-06-19 11:56] LABS: Hematocrit 38.2 % (37-53); Hemoglobin 11.80 g/dL (11.27-16.99); Mean Corpuscular HGB Conc 30.9 g/dL (30-55); Mean Corpuscular Hemoglobin 29.9 pg (27-33); Mean Corpuscular Volume 97.0 fl (82-101); Nucleated Red Blood Cells % 0 %; Platelet Count 158 10^3/cmm (157-399); Red Blood Count 3.94 10^6/uL (3.85-5.65); White Blood Count 5.63 10^3/uL (3.29-11.43)
[2025-06-19] MEDS: iohexol 350 mg/mL 500 mL Btl (per mL) IV (12:02)
[2025-06-19 12:14] LABS: Alanine Aminotransferase 10 U/L (0-41); Albumin Level 3.1 g/dL (3.5-5.2); Alkaline Phosphatase 78 U/L (40-130); Anion Gap 15.7 (5-19); Aspartate Amino Transferase 15 U/L (0-40); Blood Urea Nitrogen 7 mg/dL (8-23); Calcium 8.7 mg/dL (8.5-10.5); Carbon Dioxide 26 mmol/L (22-29); Chloride 99 mmol/L (98-107); Creatinine Clr Calc Pharmacy 103.2984; Globulin 2.9 g/dL (1.3-4.6); Glucose 108 mg/dL (65-115); Osmolality Calculated 283 mOsm/kg (285-295); Potassium 3.7 mmol/L (3.5-5.1); Sodium 137 mmol/L (136-145); Total Protein 6.0 g/dL (6.6-8.7)
[2025-06-19 12:25] LABS: Lactic Sepsis W/Reflex 4.0 mmol/L (0.5-2.2)
--- NOTE | 2025-06-19 12:25 | XRR_ITS ---
PROCEDURE INFORMATION: Exam: XR Chest Exam date and time: 06/19/2025 12:35 PM Age: 70 years old Clinical indication: Other: Weakness; Prior surgery; Surgery date: 6+ months; Surgery type: Spinal fusion; Additional info: AMS; Fall; Possible sepsis. TECHNIQUE: Imaging protocol: Radiologic exam of the chest. Views: 1 view. COMPARISON: CT chest abdpel w/*[id number] 06/19/2025 12:06 PM FINDINGS: Tubes, catheters and devices: Right-sided Port-A-Cath is present with the tip in the distal SVC. Lungs: Unremarkable. No consolidation. Pleural spaces: Unremarkable. No pleural effusion. No pneumothorax. Heart/Mediastinum: Unremarkable. No cardiomegaly. Bones/joints: Marr rods are in place. No acute fractures are identified. XR/XR chest 1V portable [id number] IMPRESSION: Stable findings.
[2025-06-19 12:45] LABS: Glucose Urine UA Negative (Normal); Nitrate Urine Negative (Negative); Specific Gravity, Urine 1.021 (1.005-1.030)
[2025-06-19] MEDS: piperacillin-tazobactam 3.375 GM in sodium chloride 0.9% (plus) 50 ML IV (12:45)
[2025-06-19 12:50] LABS: Add Urine Microscopic? YES
--- NOTE | 2025-06-19 12:54 | XRR_ITS ---
PROCEDURE INFORMATION: Exam: XR Right Knee Exam date and time: 06/19/2025 12:55 PM Age: 70 years old Clinical indication: Injury or trauma; Fall; Blunt trauma; Knee; Right TECHNIQUE: Imaging protocol: Radiologic exam of the right knee. Views: 3 views. COMPARISON: CT hip RT wo con* [id number] 05/22/2025 12:38 PM FINDINGS: Bones/joints: No acute fractures are identified. There is medial compartment and patellofemoral compartment narrowing with marginal osteophytes.. Spurring of the tibial spines is present. Small suprapatellar effusion is present. Soft tissues: Normal. XR/XR knee RT 3V* [id number] IMPRESSION: Significant degenerative changes. No acute process identified.
--- NOTE | 2025-06-19 12:54 | W.ED.AMS ---
HPI - Altered Mental Status General: Chief Complaint: Altered Mental Status Stated Complaint: fall; ams Time Seen by Provider: 06/19/25 11:22 Source: patient and EMS Mode of arrival: EMS Limitations: no limitations History of Present Illness: 70-year-old male has a history of multiple medical issues patient states that he got up this morning he felt extremely weak and fell over. States he did hit his head and has some head back pain. Patient states he was not able to get up and feels like his right leg giving out. Per EMS patient was hypotensive in the 80s initial pressures here were low as well. He denies any vomiting or diarrhea denies any fevers states he had recently had a small bowel obstruction. Related Data Home Medications ?Medication ?Instructions ?Recorded ?Confirmed saw palmetto 500 mg capsule 500 mg PO DAILY 11/15/20 06/19/25 gabapentin 300 mg capsule 300 mg PO TID PRN nerve pain 02/04/23 06/19/25 albuterol sulfate 90 mcg/actuation 2 puff inhalation Q4H PRN 10/08/24 06/19/25 aerosol inhaler Shortness Of Breath digoxin 125 mcg (0.125 mg) tablet 0.125 mg PO DAILY 10/08/24 06/19/25 epinephrine 0.3 mg/0.3 mL See Rx Instructions .Route .COMPLEX 10/08/24 06/19/25 injection, auto-injector oxycodone 10 mg tablet 10 mg PO Q6H PRN Pain 10/08/24 06/19/25 vancomycin 125 mg capsule 125 mg PO DAILY 12/04/24 06/19/25 clobetasol 0.05 % topical cream 1 applic topical BID PRN hands 02/09/25 06/19/25 testosterone 3 pump topical DAILY 02/09/25 06/19/25 allopurinol 300 mg tablet 300 mg PO DAILY 04/14/25 06/19/25 fruquintinib 5 mg capsule See Rx Instructions .Route .COMPLEX 04/14/25 06/19/25 (Fruzaqla) sucralfate 1 gram tablet 1 g PO BID 04/14/25 06/19/25 lovastatin 40 mg tablet 40 mg PO DAILY 06/11/25 06/19/25 metoprolol tartrate 25 mg tablet 25 mg PO Q12H 06/19/25 06/19/25 rivaroxaban 20 mg tablet (Xarelto) 20 mg PO QPM 06/19/25 06/19/25 Previous Rx's ?Medication ?Instructions ?Recorded pantoprazole 40 mg tablet,delayed 40 mg PO QAM #60 tabs 02/12/25 release (Protonix) aspirin 81 mg tablet,delayed 81 mg PO DAILY #30 tabs 03/11/25 release trazodone 150 mg tablet 150 mg PO BEDTIME #30 tabs 03/11/25 amiodarone 200 mg tablet 200 mg PO DAILY #90 tabs 06/11/25 midodrine 5 mg tablet 5 mg PO TID #270 tabs 06/11/25 Allergies Allergy/AdvReac Type Severity Reaction Status Date / Time tomato Allergy Severe ADR-Gastrointestinal Verified 06/11/25 10:09 Upset apixaban Allergy Unknown Headaches Verified 06/11/25 10:09 blackberry Allergy Unknown ADR-Diarrhe Verified 06/11/25 10:09 a blueberry Allergy Unknown ADR-Diarrhe Verified 06/11/25 10:09 a egg Allergy Unknown DIARRHEA, Verified 06/11/25 10:09 VOMITING AND STOMACH CRAMPING raspberry Allergy Unknown ADR-Diarrhe Verified 06/11/25 10:09 a strawberry Allergy Unknown ADR-Diarrhe Verified 06/11/25 10:09 a oats Allergy DIARRHEA Verified 06/11/25 10:09 Opioids - Morphine Analogues Allergy ADR-Chest Verified 06/11/25 10:09 Pain caffeine AdvReac Unknown PALPITATION Verified 06/11/25 10:09 S apple AdvReac DIARRHEA, Verified 06/11/25 10:09 VOMITING AND CRAMPING meperidine (From Demerol) AdvReac EXCESSIVE Verified 06/11/25 10:09 SEDATION morphine AdvReac HALLUCINATI Verified 06/11/25 10:09 ONS berries Allergy Unknown Unknown Uncoded 06/11/25 10:09 FRYE Allergy Unknown Diarrhea Uncoded 06/11/25 10:09 raw tomatoes Allergy Unknown ADR-Gastrointestinal Uncoded 06/11/25 10:09 Upset Review of Systems Const: Denies: fever(s) Card: Denies: chest pain Resp: Denies: dyspnea GI: Denies: abdominal pain, nausea or vomiting Musc: Reports: neck pain and back pain PFSH ED PFSH: Medical History (Updated 06/19/25 @ 15:35 by Donato Chance MD) Hydrops of gallbladder Atrial fibrillation with rapid ventricular response Elevated troponin Hypotension Orthostatic hypotension Complication of ostomy Ventilator dependent Intra-abdominal abscess post-procedure Metastatic colon cancer to liver Malignant neoplasm of splenic flexure Renal hematoma Colostomy complication C. 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 (~08/2022) hospitalized in [place] Chronic sinusitis of both maxillary sinuses Gout Asperger syndrome mild Dyslipidemia Degenerative joint disease (DJD) of lumbar spine Obstructive sleep apnea Chronic low back pain Substernal goiter Asthma Restrictive lung disease due to kyphoscoliosis Suspected exposure to asbestos Allergies Right renal stone Testosterone deficiency On TRT for 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 Erectile dysfunction Opioid contract exists previous Chronic pain syndrome Surgical History Hx of bilateral cataract extraction History of colostomy (11/01/22) Colostomy revision for control of bleeding History of exploratory laparotomy (10/15/22) Exploratory laparotomy with partial colon resection and with end colostomy formation Status post left hemicolectomy (10/08/22) laparoscopic converted to open, with splenic flexure takedown and right colon mobilization, primary anastamosis History of back surgery History of shoulder surgery History of appendectomy H/O arthroscopic knee surgery H/O ankle fusion H/O wrist surgery S/P ureteral stent placement Family History Grandfather CAD (coronary artery disease) Family/Other Cancer Grandmother Dementia Stroke Mother Lung disease Other Hypertension Denies family history of Rheumatoid arthritis Diabetes Lupus Clotting disorder Hyperlipidemia Chronic kidney disease (CKD) Suicide Anesthesia complication Bleeding disorder Social History Smoking and tobacco/nicotine status: never used tobacco/nicotine Quit status (tobacco/nicotine): has quit using Year quit tobacco: 1975 [id number] Second hand smoke exposure: Yes Alcohol intake: never Substance/Drug Use: never Lives independently: Yes Current occupational status: retired Pets and animals: Yes Do you think of yourself as: Straight/Heterosexual Current gender identity: Male Physical Exam Const: COMMON NORMALS: patient oriented x3 HENMT: COMMON NORMALS: normocephalic and atraumatic HEAD & SCALP: normocephalic and atraumatic Eye: COMMON NORMALS: Equal, round and reactive pupils present and EOMs intact bilaterally PUPIL: Yes Equal, round and reactive pupils present Neck/C-Spine: COMMON NORMALS: full ROM and supple Chest: COMMONS NORMALS: normal inspection of the chest Resp: COMMON NORMALS: normal respiratory effort, No retractions, No use of accessory muscles and clear to auscultation bilaterally AUSCULTATION: clear to auscultation bilaterally Cardio: COMMON NORMALS: regular rate, regular rhythm and No murmurs present (Cardio) RATE: regular rate RHYTHM: regular rhythm GI: COMMON NORMALS: Normal to inspection, nondistended, normoactive bowel sounds present, Soft to palpation, non-tender and no masses PALPATION: Yes Soft to palpation Extremity: COMMON NORMALS: normal to inspection and full ROM Neuro: COMMON NORMALS: patient oriented x3, moves all extremities and no focal motor deficits Psych: COMMON NORMALS: mental status grossly normal, Normal thought process present and cooperative THOUGHT PROCESS: Normal thought process present Skin: COMMON NORMALS: no rashes or lesions noted and no wounds GENERAL SKIN EXAM: no rashes or lesions noted Course Vital Signs: Vital signs: Vital Signs Temperature 97.8 F 06/19/25 11:21 Pulse Rate 66 06/19/25 16:36 Respiratory Rate 10 L 06/19/25 15:45 Blood Pressure 142/92 06/19/25 16:36 Pulse Oximetry 97 06/19/25 16:36 Oxygen Delivery Me thod Room Air 06/19/25 11:21 MDM - Altered Mental Status Medical Decision Making Patient presents here with weakness and a fall he was hypotensive he first arrived no signs of infection he did have elevated lactate that resolved with IV fluids his blood pressure improved here with IV fluids as well. I did go over all his findings and his labs I strongly recommended admission he states that he is in the hospital too much lately and he refused admission. He was able stand ambulate on his own will discharge at this time he is to follow-up with PCP return if worsening he understands agrees to plan. Medical Records I reviewed the patient's medical records. Lab Data I reviewed the patient's lab results. 06/19/25 11:42 06/19/25 11:42 Radiology Impressions Cervical Spine CT 06/19/25 11:29 IMPRESSION: 1. No acute cervical spine fracture. 2. Prominent left thyroid nodules. Thyroid ultrasound is suggested. COMMENTS: Consistent with the [employer]'s Incidental Findings Committee white paper (J Am Dg Radiol 2015): In patients aged 35 years and older with an incidental thyroid nodule equal to or greater than 1.[address], MRI or extrathyroidal US, further evaluation with dedicated thyroid US is recommended for patients with normal life expectancy and without comorbidities. For smaller nodules without suspicious features, no further evaluation or follow up is recommended. Chest/Abdomen/Pelvis CT 06/19/25 11:29 IMPRESSION: 1. Marr rods in place. No acute fractures identified. 2. Enlarged thyroid gland with multiple masses bilaterally. 3. Stable 0.5 cm nodule right lower lobe. IMPRESSION: 1. No acute fractures are identified. Stable postop changes to the spine. 2. Metastatic disease to the liver which appears stable. 3. Right lower quadrant colostomy and postop changes of left hemicolectomy which are stable. 4. Additional findings as described above. COMMENTS: Consistent with the [employer]'s Incidental Findings Committee white paper (J Am Dg Radiol 2018): Any incidental renal lesion less than 1 cm or classified as too small to characterize, or any incidental cystic renal lesion characterized as simple-appearing, is likely benign. No follow-up imaging is recommended for these lesions per consensus recommendations based on imaging criteria. Head CT 06/19/25 11:29 IMPRESSION: No acute intracranial abnormality. Chest X-Ray 06/19/25 12:25 IMPRESSION: Stable findings. Knee X-Ray 06/19/25 12:54 IMPRESSION: Significant degenerative changes. No acute process identified. Laboratory Results WBC 5.63 10^3/uL (3.29-11.43) 06/19/25 11:42 RBC 3.94 10^6/uL (3.85-5.65) 06/19/25 11:42 Hgb 11.80 g/dL (11.27-16.99) 06/19/25 11:42 Hct 38.2 % (37-53) 06/19/25 11:42 MCV 97.0 fl (82-101) 06/19/25 11:42 MCH 29.9 pg (27-33) 06/19/25 11:42 MCHC 30.9 g/dL (30-55) 06/19/25 11:42 RDW 16.1 % (12.1-15.1) H 06/19/25 11:42 Plt Count 158 10^3/cmm (157-399) 06/19/25 11:42 MPV 9.9 fL (7.4-10.4) 06/19/25 11:42 Neut % (Auto) 59.2 % 06/19/25 11:42 Lymph % (Auto) 24.2 % 06/19/25 11:42 [place] % (Auto) 9.6 % 06/19/25 11:42 Eos % (Auto) 5.9 % 06/19/25 11:42 Baso % (Auto) 0.7 % 06/19/25 11:42 Neut # (Auto) 3.34 10^3/uL (1.8-7.7) 06/19/25 11:42 Lymph # (Auto) 1.4 10^3/uL (0.8-4.8) 06/19/25 11:42 [place] # (Auto) 0.5 10^3/uL (0.2-0.9) 06/19/25 11:42 Eos # (Auto) 0.3 10^3/uL (0.0-0.8) 06/19/25 11:42 Baso # (Auto) 0.0 10^3/uL (0.0-0.1) 06/19/25 11:42 Nucleated RBC % (auto) 0 % 06/19/25 11:42 Nucleated RBCs # 0.0 /100WBC 06/19/25 11:42 Sodium 137 mmol/L (136-145) 06/19/25 11:42 Potassium 3.7 mmol/L (3.5-5.1) 06/19/25 11:42 Chloride 99 mmol/L (98-107) 06/19/25 11:42 Carbon Dioxide 26 mmol/L (22-29) 06/19/25 11:42 Anion Gap 15.7 (5-19) 06/19/25 11:42 BUN 7 mg/dL (8-23) L 06/19/25 11:42 Creatinine 0.9 mg/dL (0.7-1.2) 06/19/25 11:42 GFR Calculation 83.4 mL/min (90-130) L 06/19/25 11:42 Glucose 108 mg/dL (65-115) 06/19/25 11:42 Calculated Osmolality 283 mOsm/kg (285-295) L 06/19/25 11:42 Lactic Acid 4.0 mmol/L (0.5-2.2) H 06/19/25 11:42 Lactic Acid (Sepsis) 2.1 mmol/L (0.5-2.2) 06/19/25 14:52 Calcium 8.7 mg/dL (8.5-10.5) 06/19/25 11:42 Total Bilirubin 0.3 mg/dL (0.15-1.2) 06/19/25 11:42 AST 15 U/L (0-40) 06/19/25 11:42 ALT 10 U/L (0-41) 06/19/25 11:42 Alkaline Phosphatase 78 U/L (40-130) 06/19/25 11:42 Total Protein 6.0 g/dL (6.6-8.7) L 06/19/25 11:42 Albumin 3.1 g/dL (3.5-5.2) L 06/19/25 11:42 Globulin 2.9 g/dL (1.3-4.6) 06/19/25 11:42 Urine Color Yellow (Yellow) 06/19/25 12:37 Urine Appearance Clear (CLEAR) 06/19/25 12:37 Urine pH 5.5 (5-7) 06/19/25 12:37 Ur Specific [place] 1.021 (1.005-1.030) 06/19/25 12:37 Urine Protein Negative (Negative) 06/19/25 12:37 Urine Glucose (UA) Negative (Normal) 06/19/25 12:37 Urine Ketones Negative (Negative) 06/19/25 12:37 Urine Blood Negative (Negative) 06/19/25 12:37 Urine Nitrate Negative (Negative) 06/19/25 12:37 Urine Bilirubin Negative (Negative) 06/19/25 12:37 Urine Urobilinogen 0.2 mg/dL (Negative) 06/19/25 12:37 Ur Leukocyte Esterase Negative (Negative) 06/19/25 12:37 Urine RBC 0-2 /hpf (0-2) 06/19/25 12:37 Urine WBC 0-5 /hpf (0-5) 06/19/25 12:37 Ur Squamous Epith Cells 0-5 /hpf (0-5) 06/19/25 12:37 Amorphous Sediment Not Reportable 06/19/25 12:37 Urine Bacteria None seen /hpf (NONE) 06/19/25 12:37 Hyaline Casts 3.71 /lpf 06/19/25 12:37 All radiology interpretation(s) finalized by discharge EKG Data EKG 1: I personally reviewed and interpreted this EKG as follows: EKG interpretation date: 06/19/25 EKG interpretation time: 11:37 Interpretation: afib hr [address] elevation qrs 113 qtc 422 Discharge Plan Discharge Patient Disposition: Home Clinical Impression: Generalized weakness, Fall Condition: Stable Prescriptions: No Action saw palmetto 500 mg capsule 500 mg PO DAILY lovastatin 40 mg tablet 40 mg PO DAILY amiodarone 200 mg tablet 200 mg PO DAILY Qty: 90 3RF midodrine 5 mg tablet 5 mg PO TID Qty: 270 3RF vancomycin 125 mg capsule 125 mg PO DAILY testosterone 20.25 mg/1.25 gram (1.62 %) gel in metered-dose pump 3 pump topical DAILY clobetasol 0.05 % cream 1 applic TOPICAL BID PRN (Reason: hands) pantoprazole [Protonix] 40 mg tablet,delayed release (DR/EC) 40 mg PO QAM Qty: 60 0RF sucralfate 1 gram tablet 1 g PO BID allopurinol 300 mg tablet 300 mg PO DAILY Fruzaqla 5 mg capsule See Rx Instructions .ROUTE .COMPLEX Rx Instructions: Take 1 capsule by mouth daily for 3 weeks, then off 1 week. metoprolol tartrate 25 mg tablet 25 mg PO Q12H Xarelto 20 mg tablet 20 mg PO QPM Rx Instructions: must administer with evening meal gabapentin 300 mg capsule 300 mg PO TID PRN (Reason: nerve pain) digoxin 125 mcg (0.125 mg) tablet 0.125 mg PO DAILY epinephrine 0.3 mg/0.3 mL auto-injector See Rx Instructions .ROUTE .COMPLEX Rx Instructions: INJECT CONTENTS OF 1 PEN NEEDED FOR ALLERGIC REACTION albuterol sulfate 90 mcg/actuation HFA aerosol inhaler 2 puff INHALATION Q4H PRN (Reason: Shortness Of Breath) oxycodone 10 mg tablet 10 mg PO Q6H PRN (Reason: Pain) aspirin 81 mg Tablet,Delayed Release (Dr/Ec) 81 mg PO DAILY Qty: 30 0RF trazodone 150 mg tablet 150 mg PO BEDTIME Qty: 30 0RF Discharge Orders: Discharge ED (Routine); Ordered 06/19/25 Ordered By: Donato Chance Referrals: Al Álvarez MD [Primary Care Provider, Family Practice] - 4-7 days Discharge Diet: Advance as tolerated Discharge Activity: Resume usual activity Patient Instructions: Weakness (ED), Fall Prevention (ED) Print Language: Surinamese Coding Level of Care Code ED Brush Sander for Scarlett San
--- NOTE | 2025-06-19 13:37 | PC.PHAR ---
Pt states no medications have changed since last med rec on 05/27/25. Pt has fill dates more than 30 days over due but when I ask, he states he still takes them. Pt gets some of his medications through [facility].
[2025-06-19 13:40] LABS: Reflex Lactate Order REFLEX LACTIC ORDERD
[2025-06-19 15:12] LABS: Lactic Acid level (Lactate) 2.1 mmol/L (0.5-2.2)
== END 2025-06-19 16:37 | disposition home or self-care (01) ==
PROVIDERS: Emergency Provider Emergency Medicine; PCP Family Medicine
DX: R53.1 Weakness (principal); Z79.82 Long term (current) use of aspirin; Z87.891 Personal history of nicotine dependence; Z85.038 Personal history of other malignant neoplasm of large intestine; Z85.05 Personal history of malignant neoplasm of liver; Z85.89 Personal history of malignant neoplasm of other organs and systems; E78.5 Hyperlipidemia, unspecified
CPT/HCPCS: 36415; 70450; 71045; 71260; 72125; 73562; 74177; 80053; 81001; 83605; 85025; 87040; 93005; 96365; 96375; 99285; J2543; J3373; J7030; J7050; J7120

== ENCOUNTER 2025-08-20 14:03 | Outpatient (CLI) | payer MEDICARE, SELFPAY ==
--- NOTE | 2025-08-20 14:15 | CTR_ITS ---
PROCEDURE INFORMATION: Exam: CT Chest With Contrast; Diagnostic Exam date and time: 08/20/2025 2:44 PM Age: 70 years old Clinical indication: Condition or disease; Other: Colon adenocarcinoma; Prior surgery; Surgery date: 6+ months; Surgery type: Spinal fusion TECHNIQUE: Imaging protocol: Diagnostic computed tomography of the chest with contrast. Radiation optimization: All CT scans at this facility use at least one of these dose optimization techniques: automated exposure control; mA and/or kV adjustment per patient size (includes targeted exams where dose is matched to clinical indication); or iterative reconstruction. Contrast material: OMNI 350; Contrast volume: 100 ml; Contrast route: INTRAVENOUS (IV); COMPARISON: CT chest abdpel [id number]/*[id number] 06/19/2025 12:06 PM RADIATION DOSE METRICS: Total DLP (mGy-cm): 1445.48 FINDINGS: Tubes, catheters and devices: Right-sided Port-A-Cath in place with its tip terminating at the level of the cavoatrial junction. Lungs: Small right-sided pleural effusion associated with mild adjacent compressive atelectatic changes in the posterior basal segment of the right lower lobe. Subsegmental atelectatic changes in the left lower lobe. Stable nodule in the right lower lobe (series 5, image 35) measuring a proximally 6 mm. Otherwise, no suspicious pulmonary masses or nodules. Pleural spaces: See Lungs finding. Heart: Mild cardiomegaly. No pericardial effusions. Lymph nodes: No significant mediastinal or hilar lymphadenopathy. Calcified right hilar lymph nodes suggestive of sequelae of old granulomatous disease. Vasculature: Unremarkable. No aortic aneurysm. Bones/joints: Osteopenia. Intact Marr rods at T4 through L1. Stable fixated levoscoliosis of the thoracic spine. No bony destructive lesions. Soft tissues: Unremarkable. PROCEDURE INFORMATION: Exam: CT Abdomen And Pelvis With Contrast Exam date and time: 08/20/2025 2:44 PM Age: 70 years old Clinical indication: Condition or disease; Other: Colon adenocarcinoma; Prior surgery; Surgery date: 6+ months; Surgery type: Spinal fusion TECHNIQUE: Imaging protocol: Computed tomography of the abdomen and pelvis with contrast. Radiation optimization: All CT scans at this facility use at least one of these dose optimization techniques: automated exposure control; mA and/or kV adjustment per patient size (includes targeted exams where dose is matched to clinical indication); or iterative reconstruction. Contrast material: OMNI 350; Contrast volume: 100 ml; Contrast route: INTRAVENOUS (IV); COMPARISON: CT abdomen pelvis [facility] [id number] 07/07/2024 6:58 AM RADIATION DOSE METRICS: Total DLP (mGy-cm): 1445.48 FINDINGS: Liver: Interval increase in the hepatic metastatic tumor burden in the right lobe of the liver which is difficult to measure exactly due to confluence and irregular shape of the metastatic lesions. Gallbladder and biliary ducts: Gallbladder unremarkable. No significant biliary ductal dilatation. Pancreas: Normal. No ductal dilation. Spleen: Normal. No splenomegaly. Adrenal glands: Normal. No mass. Kidneys and ureters: Small nonobstructive right renal stone. Stable simple renal cysts. No follow-up indicated. Stable scarring/post treatment changes in the posterior aspect of the lower aspect of the right kidney. Stomach and bowel: Postsurgical changes of partial left hemicolectomy with right anterior abdominal wall colostomy in place. Juliana's pouch in the pelvis. Appendix: No evidence of appendicitis. Intraperitoneal space: Unremarkable. No free air. No significant fluid collection. Vasculature: Unremarkable. No abdominal aortic aneurysm. Lymph nodes: No evidence suspicious masses or lymphadenopathy in the abdomen or pelvis. Urinary bladder: Unremarkable as visualized. Reproductive: Unremarkable as visualized. Bones/joints: Osteopenia. Marr rods terminates at the level of L1. Posterior interbody spinal fusion hardware at L5-S1. Stable dextroscoliosis of the lumbar spine. No bony destructive lesions. Soft tissues: Small fat containing left inguinal hernia. CT/CT chest abdpel w/*[id number] IMPRESSION: 1. Stable nodule in the right lower lobe (series 5, image 35) measuring a proximally 6 mm. Otherwise, no suspicious pulmonary masses or nodules. 2. No significant mediastinal or hilar lymphadenopathy. 3. Small right-sided pleural effusion associated with mild adjacent compressive atelectatic changes in the posterior basal segment of the right lower lobe. 4. Mild cardiomegaly. 5. No bony destructive lesions. IMPRESSION: 1. Interval increase in the hepatic metastatic tumor burden in the right lobe of the liver which is difficult to quantify due to confluence and irregular infiltrative appearance of the metastatic lesions. 2. No evidence of suspicious masses or lymphadenopathy in the abdomen or pelvis. 3. Postsurgical changes of partial left hemicolectomy with right anterior abdominal wall colostomy in place. Juliana's pouch in the pelvis. 4. Stable simple renal cysts. No follow-up indicated. 5. Stable scarring/post treatment changes in the posterior aspect of the lower aspect of the right kidney. 6. No bony destructive lesions.
[2025-08-20] MEDS: iohexol 350 mg/mL 500 mL Btl (per mL) IV (14:58)
[2025-08-20 15:24] LABS: Blood Urea Nitrogen 15 mg/dL (8-23)
== END 2025-08-20 14:04 | disposition home or self-care (01) ==
LOC: RAD 14:08
PROVIDERS: PCP Family Medicine; Visit Provider Internal Medicine
DX: R91.1 Solitary pulmonary nodule (principal); Z95.828 Presence of other vascular implants and grafts; C78.7 Secondary malignant neoplasm of liver and intrahepatic bile duct; N27.0 Small kidney, unilateral; J98.11 Atelectasis; K91.89 Other postprocedural complications and disorders of digestive system; N20.0 Calculus of kidney
CPT/HCPCS: 71260; 74177; 82565; 84520

== ENCOUNTER 2025-09-08 13:44 | Oncology outpatient (recurring) (ONCR) | payer MEDICARE, SELFPAY ==
[2025-09-01 16:36] LABS: Hematocrit 36.4 % (37-53); Hemoglobin 11.30 g/dL (11.27-16.99); Mean Corpuscular HGB Conc 31.0 g/dL (30-55); Mean Corpuscular Hemoglobin 29.7 pg (27-33); Mean Corpuscular Volume 95.5 fl (82-101); Nucleated Red Blood Cells % 0 %; Platelet Count 446 10^3/cmm (157-399); Red Blood Count 3.81 10^6/uL (3.85-5.65); White Blood Count 10.14 10^3/uL (3.29-11.43)
[2025-09-01 17:13] LABS: Alanine Aminotransferase 25 U/L (0-41); Albumin Level 3.4 g/dL (3.5-5.2); Alkaline Phosphatase 126 U/L (40-130); Anion Gap 15.4 (5-19); Aspartate Amino Transferase 60 U/L (0-40); Blood Urea Nitrogen 14 mg/dL (8-23); Calcium 9.5 mg/dL (8.5-10.5); Carbon Dioxide 26 mmol/L (22-29); Chloride 100 mmol/L (98-107); Globulin 3.7 g/dL (1.3-4.6); Glucose 102 mg/dL (65-115); Iron 30 ug/dL (59-158); Osmolality Calculated 285 mOsm/kg (285-295); Potassium 4.4 mmol/L (3.5-5.1); Sodium 137 mmol/L (136-145); Total Iron Binding Capacity 168 mcg/dl; Total Protein 7.1 g/dL (6.6-8.7); Unsaturated Iron Binding 138 ug/dL (112-347); Vitamin B12 868 pg/mL (232-1245)
[2025-09-01 17:24] LABS: Carcinoembryonic Antigen 1264.0 ng/mL (0.0-4.7)
[2025-09-01 17:27] LABS: Ferritin 1293 ng/mL (30-400)
== END 2025-09-19 23:59 | disposition home or self-care (01) ==
PROVIDERS: PCP Family Medicine; Visit Provider Internal Medicine
DX: C18.5 Malignant neoplasm of splenic flexure (principal); C78.7 Secondary malignant neoplasm of liver and intrahepatic bile duct; D50.9 Iron deficiency anemia, unspecified; Z93.2 Ileostomy status; Z87.891 Personal history of nicotine dependence; Z95.828 Presence of other vascular implants and grafts
CPT/HCPCS: 36591; 80053; 82378; 82607; 82728; 82746; 83010; 83540; 83550; 83615; 85025; 99213